=== PATIENT | female | born 1960 | race Caucasian/White ===

== ENCOUNTER 2020-06-23 10:22 | Outpatient (REF) | payer OTHER, SELFPAY ==
[2020-06-23 13:50] LABS: MANUAL DIFF FLAG NO
[2020-06-23 13:55] LABS: Basophils Absolute Auto 0.1 X10*3/uL (0.0-0.2); Basophils Percent Auto 0.8 % (0-2); Eosinophils Absolute Auto 0.1 X10*3/uL (0.0-0.4); Eosinophils Percent Auto 1.3 % (0-4); Hematocrit 39.9 % (37-47); Hemoglobin 13.4 g/dl (12.0-16.0); Imm Gran Abs Auto 0.02 X10*3/uL (0.00-0.03); Imm Gran Pct Auto 0.3 % (0.0-0.4); Lymphocytes Absolute Auto 1.9 X10*3/uL (1.2-4.9); Lymphocytes Percent Auto 31.9 % (20-40); Mean Corpuscular HGB Conc 33.6 g/dl (31.0-35.0); Mean Corpuscular Hemoglobin 30.1 pg (27.0-33.0); Mean Corpuscular Volume 89.7 fL (80-98); Mean Platelet Volume 10.7 fL (9.4-12.3); Monocytes Absolute Auto 0.5 X10*3/uL (0.1-1.2); Monocytes Percent Auto 7.6 % (2-11); Neutrophils Absolute Auto 3.5 X10*3/uL (2.0-8.3); Neutrophils Percent Auto 58.1 % (45-73); Platelet Count 176 X10*3/uL (160-400); Red Blood Count 4.45 X10*6/uL (4.20-5.50)
[2020-06-23 14:29] LABS: Alanine Aminotransferase 32 U/L (0-31); Albumin Level 4.5 g/dL (3.5-5.0); Alkaline Phosphatase 84 U/L (39-117); Anion Gap 10 (12-20); Aspartate Amino Transferase 18 U/L (5-31); Bilirubin Total 0.4 mg/dL (0.0-1.0); Blood Urea Nitrogen 24 mg/dL (9-16); C Reactive Protein 0.41 mg/dL (< or = 0.50); Calcium 9.3 mg/dL (8.4-10.2); Carbon Dioxide 27 mmol/L (22-29); Chloride 111 mmol/L (96-108); Estimated Glomerular Filt Rate > 60; Glucose Random 88 mg/dL (60-115); Potassium 4.7 mmol/l (3.3-5.1); Sodium 143 mmol/L (135-145); Total Protein 6.8 g/dL (6.5-8.0)
[2020-06-23 15:05] LABS: Erythrocyte Sedimentation Rate 16 MM/HR (0-20)
== END 2020-06-23 10:23 | disposition home or self-care (01) ==
LOC: HO.10HDL 10:22
PROVIDERS: Visit Provider Internal Medicine Rheumatology
DX: M06.4 Inflammatory polyarthropathy (principal); D69.6 Thrombocytopenia, unspecified; D72.818 Other decreased white blood cell count
CPT/HCPCS: 36415; 80053; 85025; 85652; 86140

== ENCOUNTER 2020-09-13 09:11 | Outpatient (REF) | payer OTHER, SELFPAY ==
[2020-09-13 10:24] LABS: MANUAL DIFF FLAG NO
[2020-09-13 10:34] LABS: Basophils Percent Auto 0.7 % (0-2); Eosinophils Absolute Auto 0.1 X10*3/uL (0.0-0.4); Eosinophils Percent Auto 1.1 % (0-4); Hematocrit 42.1 % (37-47); Hemoglobin 14.1 g/dl (12.0-16.0); Imm Gran Abs Auto 0.04 X10*3/uL (0.00-0.03); Imm Gran Pct Auto 0.7 % (0.0-0.4); Lymphocytes Absolute Auto 1.6 X10*3/uL (1.2-4.9); Lymphocytes Percent Auto 28.6 % (20-40); Mean Corpuscular HGB Conc 33.5 g/dl (31.0-35.0); Mean Corpuscular Hemoglobin 30.1 pg (27.0-33.0); Mean Platelet Volume 10.9 fL (9.4-12.3); Monocytes Absolute Auto 0.4 X10*3/uL (0.1-1.2); Monocytes Percent Auto 6.4 % (2-11); Neutrophils Absolute Auto 3.5 X10*3/uL (2.0-8.3); Neutrophils Percent Auto 62.5 % (45-73); Platelet Count 201 X10*3/uL (160-400); Red Blood Count 4.68 X10*6/uL (4.20-5.50); White Blood Count 5.6 X10*3/uL (4.8-10.8)
[2020-09-13 11:04] LABS: C Reactive Protein 0.39 mg/dL (< or = 0.50)
[2020-09-13 11:17] LABS: Alanine Aminotransferase 26 U/L (0-31); Albumin Level 4.2 g/dL (3.5-5.0); Alkaline Phosphatase 110 U/L (39-117); Anion Gap 13 (12-20); Aspartate Amino Transferase 18 U/L (5-31); Blood Urea Nitrogen 23 mg/dL (9-16); Calcium 8.9 mg/dL (8.4-10.2); Carbon Dioxide 24 mmol/L (22-29); Chloride 110 mmol/L (96-108); Estimated Glomerular Filt Rate > 60; Glucose Random 107 mg/dL (60-115); Potassium 4.2 mmol/l (3.3-5.1); Sodium 143 mmol/L (135-145); Total Protein 6.9 g/dL (6.5-8.0)
[2020-09-13 11:25] LABS: Bilirubin Total 0.2 mg/dL (0.0-1.0)
[2020-09-13 11:35] LABS: Erythrocyte Sedimentation Rate 14 MM/HR (0-20)
== END 2020-09-13 09:12 | disposition home or self-care (01) ==
LOC: HO.10HDLR 09:11
PROVIDERS: Absent Provider Internal Medicine Rheumatology; PCP Internal Medicine; Visit Provider Internal Medicine Medical Oncology
DX: D72.819 Decreased white blood cell count, unspecified (principal)
CPT/HCPCS: 36415; 80053; 85025; 85652; 86140

== ENCOUNTER 2020-09-20 10:22 | Outpatient (REF) | payer OTHER, SELFPAY ==
[2020-09-20 13:52] LABS: MANUAL DIFF FLAG NO
[2020-09-20 13:56] LABS: Basophils Percent Auto 0.7 % (0-2); Eosinophils Absolute Auto 0.1 X10*3/uL (0.0-0.4); Eosinophils Percent Auto 1.9 % (0-4); Hematocrit 39.7 % (37-47); Imm Gran Abs Auto 0.02 X10*3/uL (0.00-0.03); Imm Gran Pct Auto 0.3 % (0.0-0.4); Lymphocytes Absolute Auto 1.7 X10*3/uL (1.2-4.9); Lymphocytes Percent Auto 29.7 % (20-40); Mean Corpuscular HGB Conc 32.7 g/dl (31.0-35.0); Mean Corpuscular Hemoglobin 29.5 pg (27.0-33.0); Mean Corpuscular Volume 90.2 fL (80-98); Mean Platelet Volume 10.9 fL (9.4-12.3); Monocytes Absolute Auto 0.4 X10*3/uL (0.1-1.2); Monocytes Percent Auto 6.8 % (2-11); Neutrophils Absolute Auto 3.5 X10*3/uL (2.0-8.3); Neutrophils Percent Auto 60.6 % (45-73); Platelet Count 187 X10*3/uL (160-400); Red Cell Distribution Width 11.9 % (11.0-16.0); White Blood Count 5.7 X10*3/uL (4.8-10.8)
[2020-09-20 14:32] LABS: Alanine Aminotransferase 22 U/L (0-31); Albumin Level 4.2 g/dL (3.5-5.0); Alkaline Phosphatase 87 U/L (39-117); Anion Gap 12 (12-20); Aspartate Amino Transferase 16 U/L (5-31); Bilirubin Total 0.2 mg/dL (0.0-1.0); Blood Urea Nitrogen 24 mg/dL (9-16); Calcium 8.8 mg/dL (8.4-10.2); Carbon Dioxide 24 mmol/L (22-29); Chloride 111 mmol/L (96-108); Cholesterol 197 mg/dL; Estimated Glomerular Filt Rate > 60; Glucose Fasting 106 mg/dL (60-99); HDL Cholesterol 44 mg/dL; LDL Cholesterol Calculated 125 mg/dl; Potassium 4.2 mmol/l (3.3-5.1); Sodium 143 mmol/L (135-145); Total Protein 6.6 g/dL (6.5-8.0); Triglycerides 142 mg/dL
[2020-09-20 14:55] LABS: Free T4 (Free Thyroxine) 0.71 ng/dL (0.71-1.85); Thyroid Stimulating Hormone 0.62 uIU/mL (0.32-4.0)
== END 2020-09-20 10:23 | disposition home or self-care (01) ==
LOC: HO.10HDL 10:22
PROVIDERS: Absent Provider Internal Medicine Rheumatology; Visit Provider Internal Medicine
DX: Z00.00 Encounter for general adult medical examination without abnormal findings (principal); R63.4 Abnormal weight loss; K50.90 Crohn's disease, unspecified, without complications
CPT/HCPCS: 36415; 80053; 80061; 84439; 84443; 85025

== ENCOUNTER 2020-11-22 10:30 | Outpatient (REF) | payer OTHER, SELFPAY ==
[2020-11-22 12:03] LABS: MANUAL DIFF FLAG NO
[2020-11-22 12:07] LABS: Basophils Percent Auto 0.4 % (0-2); Eosinophils Absolute Auto 0.1 X10*3/uL (0.0-0.4); Eosinophils Percent Auto 1.5 % (0-4); Hematocrit 40.7 % (37-47); Hemoglobin 13.6 g/dl (12.0-16.0); Imm Gran Abs Auto 0.02 X10*3/uL (0.00-0.03); Imm Gran Pct Auto 0.3 % (0.0-0.4); Lymphocytes Absolute Auto 2.1 X10*3/uL (1.2-4.9); Lymphocytes Percent Auto 30.8 % (20-40); Mean Corpuscular HGB Conc 33.4 g/dl (31.0-35.0); Mean Corpuscular Hemoglobin 29.8 pg (27.0-33.0); Mean Corpuscular Volume 89.3 fL (80-98); Mean Platelet Volume 10.8 fL (9.4-12.3); Monocytes Absolute Auto 0.4 X10*3/uL (0.1-1.2); Neutrophils Absolute Auto 4.1 X10*3/uL (2.0-8.3); Platelet Count 189 X10*3/uL (160-400); Red Blood Count 4.56 X10*6/uL (4.20-5.50); Red Cell Distribution Width 12.5 % (11.0-16.0); White Blood Count 6.7 X10*3/uL (4.8-10.8)
[2020-11-22 12:32] LABS: Alanine Aminotransferase 32 U/L (0-31); Albumin Level 4.5 g/dL (3.5-5.0); Alkaline Phosphatase 98 U/L (39-117); Anion Gap 12 (12-20); Aspartate Amino Transferase 21 U/L (5-31); Bilirubin Total 0.6 mg/dL (0.0-1.0); Blood Urea Nitrogen 25 mg/dL (9-16); C Reactive Protein 0.57 mg/dL (< or = 0.50); Calcium 9.4 mg/dL (8.4-10.2); Carbon Dioxide 26 mmol/L (22-29); Chloride 110 mmol/L (96-108); Estimated Glomerular Filt Rate > 60; Glucose Random 91 mg/dL (60-115); Potassium 4.1 mmol/L (3.3-5.1); Sodium 144 mmol/L (135-145); Total Protein 7.1 g/dL (6.5-8.0)
[2020-11-22 13:18] LABS: Erythrocyte Sedimentation Rate 20 MM/HR (0-20)
== END 2020-11-22 10:31 | disposition home or self-care (01) ==
LOC: HO.10HDLR 10:30
PROVIDERS: Visit Provider Internal Medicine Rheumatology
DX: M06.4 Inflammatory polyarthropathy (principal); I73.00 Raynaud's syndrome without gangrene; K50.00 Crohn's disease of small intestine without complications
CPT/HCPCS: 36415; 80053; 85025; 85652; 86140

== ENCOUNTER 2020-12-20 16:16 | Outpatient (REF) | payer OTHER, SELFPAY ==
--- NOTE | ~2020-12-20 | MM_ITS ---
EXAMINATION: MM SCREENING DIGITAL BREAST TOMOSYNTHESIS, BILATERAL CLINICAL INFORMATION: Screening. Asymptomatic. The lifetime risk of breast cancer based on the Tyrer-Cuzick Model is 8%. COMPARISON: Mammography: 10/14/2019, 10/08/2018, 09/25/2017 TECHNIQUE: Digital breast tomosynthesis is performed in both the craniocaudal and mediolateral oblique views along with computer-aided detection (CAD). Synthesized 2D images are generated from the tomosynthesis. FINDINGS: There are scattered areas of fibroglandular density (ACR BI-RADS breast composition Category b). There are no significant masses, abnormal calcifications, or other abnormalities. Parenchymal pattern is similar to prior exams. No significant changes. MM/MM tomosynthesis screening BI IMPRESSION: No mammographic evidence of malignancy. ASSESSMENT: BI-RADS 1: Negative RECOMMENDATION: Routine annual mammography screening. This patient's information was entered into a reminder system with a target due date for their next mammogram.
== END 2020-12-20 16:17 | disposition home or self-care (01) ==
LOC: HO.MAMMO 16:16
PROVIDERS: PCP Internal Medicine; Visit Provider Internal Medicine
DX: Z12.31 Encounter for screening mammogram for malignant neoplasm of breast (principal)
CPT/HCPCS: 77063; 77067

== ENCOUNTER 2021-01-06 16:05 | Outpatient (REF) | payer OTHER, SELFPAY ==
--- NOTE | ~2021-01-06 | XR_ITS ---
EXAMINATION: XR FOOT, LEFT CLINICAL INFORMATION: Inflammatory pole arthritis. Foot pain. COMPARISON: Previous x-ray September 2007 TECHNIQUE: AP, lateral, and oblique views of the left foot. FINDINGS: Bone alignment is normal. No fracture or dislocation is seen. There is an osteophyte at the navicular bone at the talar navicular joint. Joint spaces are otherwise normal. No erosions are seen. There is a small plantar calcaneal spur. Soft tissues are otherwise normal XR/XR foot LT min 3V IMPRESSION: Small navicular osteophyte at the talar navicular joint and plantar calcaneal spur.
== END 2021-01-06 16:06 | disposition home or self-care (01) ==
LOC: HO.XRAY 16:05
PROVIDERS: PCP Internal Medicine; Visit Provider Internal Medicine Rheumatology
DX: M06.4 Inflammatory polyarthropathy (principal); M79.672 Pain in left foot
CPT/HCPCS: 73630

== ENCOUNTER 2021-02-24 12:56 | Outpatient (REF) | payer OTHER, SELFPAY ==
[2021-02-24 14:42] LABS: MANUAL DIFF FLAG NO
[2021-02-24 14:44] LABS: Basophils Percent Auto 0.5 % (0-2); Eosinophils Absolute Auto 0.1 X10*3/uL (0.0-0.4); Eosinophils Percent Auto 1.1 % (0-4); Hemoglobin 13.3 g/dl (12.0-16.0); Imm Gran Abs Auto 0.02 X10*3/uL (0.00-0.03); Imm Gran Pct Auto 0.3 % (0.0-0.4); Lymphocytes Absolute Auto 1.8 X10*3/uL (1.2-4.9); Mean Corpuscular HGB Conc 34.1 g/dl (31.0-35.0); Mean Corpuscular Hemoglobin 30.4 pg (27.0-33.0); Mean Platelet Volume 10.6 fL (9.4-12.3); Monocytes Absolute Auto 0.4 X10*3/uL (0.1-1.2); Monocytes Percent Auto 6.8 % (2-11); Neutrophils Absolute Auto 4.2 X10*3/uL (2.0-8.3); Neutrophils Percent Auto 64.3 % (45-73); Platelet Count 200 X10*3/uL (160-400); Red Blood Count 4.38 X10*6/uL (4.20-5.50); Red Cell Distribution Width 12.3 % (11.0-16.0); White Blood Count 6.5 X10*3/uL (4.8-10.8)
[2021-02-24 15:08] LABS: Alanine Aminotransferase 43 U/L (0-31); Albumin Level 4.3 g/dL (3.5-5.0); Alkaline Phosphatase 102 U/L (39-117); Anion Gap 11 (12-20); Aspartate Amino Transferase 22 U/L (5-31); Bilirubin Total 0.2 mg/dL (0.0-1.0); Blood Urea Nitrogen 16 mg/dL (9-16); C Reactive Protein 0.62 mg/dL (< or = 0.50); Calcium 9.1 mg/dL (8.4-10.2); Carbon Dioxide 24 mmol/L (22-29); Chloride 112 mmol/L (96-108); Estimated Glomerular Filt Rate > 60; Glucose Random 132 mg/dL (60-115); Potassium 3.9 mmol/L (3.3-5.1); Sodium 143 mmol/L (135-145); Total Protein 6.7 g/dL (6.5-8.0)
[2021-02-24 15:31] LABS: Erythrocyte Sedimentation Rate 16 MM/HR (0-20)
== END 2021-02-24 12:57 | disposition home or self-care (01) ==
LOC: HO.WFDLDS 12:56
PROVIDERS: Visit Provider Internal Medicine Rheumatology
DX: M06.4 Inflammatory polyarthropathy (principal); I73.00 Raynaud's syndrome without gangrene; K50.00 Crohn's disease of small intestine without complications
CPT/HCPCS: 36415; 80053; 85025; 85652; 86140

== ENCOUNTER 2021-03-18 11:29 | Outpatient (REF) | payer OTHER, SELFPAY ==
[2021-03-18 13:56] LABS: MANUAL DIFF FLAG NO
[2021-03-18 14:07] LABS: Basophils Percent Auto 0.6 % (0-2); Eosinophils Absolute Auto 0.1 X10*3/uL (0.0-0.4); Eosinophils Percent Auto 1.6 % (0-4); Hematocrit 38.7 % (37-47); Hemoglobin 12.8 g/dl (12.0-16.0); Imm Gran Abs Auto 0.04 X10*3/uL (0.00-0.03); Imm Gran Pct Auto 0.6 % (0.0-0.4); Lymphocytes Absolute Auto 1.7 X10*3/uL (1.2-4.9); Lymphocytes Percent Auto 26.8 % (20-40); Mean Corpuscular HGB Conc 33.1 g/dl (31.0-35.0); Mean Corpuscular Hemoglobin 29.6 pg (27.0-33.0); Mean Corpuscular Volume 89.4 fL (80-98); Mean Platelet Volume 10.4 fL (9.4-12.3); Monocytes Absolute Auto 0.5 X10*3/uL (0.1-1.2); Monocytes Percent Auto 8.5 % (2-11); Neutrophils Absolute Auto 3.9 X10*3/uL (2.0-8.3); Neutrophils Percent Auto 61.9 % (45-73); Platelet Count 188 X10*3/uL (160-400); Red Blood Count 4.33 X10*6/uL (4.20-5.50); Red Cell Distribution Width 12.6 % (11.0-16.0); White Blood Count 6.3 X10*3/uL (4.8-10.8)
[2021-03-18 14:20] LABS: Alanine Aminotransferase 43 U/L (0-31); Albumin Level 4.2 g/dL (3.5-5.0); Alkaline Phosphatase 107 U/L (39-117); Anion Gap 12 (12-20); Aspartate Amino Transferase 19 U/L (5-31); Bilirubin Total 0.3 mg/dL (0.0-1.0); Blood Urea Nitrogen 17 mg/dL (9-16); Calcium 9.8 mg/dL (8.4-10.2); Carbon Dioxide 24 mmol/L (22-29); Chloride 110 mmol/L (96-108); Estimated Glomerular Filt Rate > 60; Glucose Random 102 mg/dL (60-115); Sodium 142 mmol/L (135-145); Total Protein 6.8 g/dL (6.5-8.0)
== END 2021-03-18 11:30 | disposition home or self-care (01) ==
LOC: HO.WFDLDS 11:29
PROVIDERS: Visit Provider Internal Medicine Medical Oncology
DX: D72.819 Decreased white blood cell count, unspecified (principal)
CPT/HCPCS: 36415; 80053; 85025

== ENCOUNTER 2021-05-27 09:36 | Outpatient (REF) | payer OTHER, SELFPAY ==
[2021-05-27 11:16] LABS: MANUAL DIFF FLAG NO
[2021-05-27 11:34] LABS: Basophils Percent Auto 0.4 % (0-2); Eosinophils Absolute Auto 0.1 X10*3/uL (0.0-0.4); Eosinophils Percent Auto 1.4 % (0-4); Hematocrit 39.4 % (37-47); Hemoglobin 13.4 g/dl (12.0-16.0); Imm Gran Abs Auto 0.02 X10*3/uL (0.00-0.03); Imm Gran Pct Auto 0.4 % (0.0-0.4); Lymphocytes Absolute Auto 1.5 X10*3/uL (1.2-4.9); Lymphocytes Percent Auto 28.7 % (20-40); Mean Corpuscular Hemoglobin 30.5 pg (27.0-33.0); Mean Corpuscular Volume 89.5 fL (80-98); Mean Platelet Volume 10.5 fL (9.4-12.3); Monocytes Absolute Auto 0.4 X10*3/uL (0.1-1.2); Monocytes Percent Auto 7.9 % (2-11); Neutrophils Absolute Auto 3.1 X10*3/uL (2.0-8.3); Neutrophils Percent Auto 61.2 % (45-73); Platelet Count 180 X10*3/uL (160-400); Red Cell Distribution Width 11.9 % (11.0-16.0); White Blood Count 5.1 X10*3/uL (4.8-10.8)
[2021-05-27 11:46] LABS: Alanine Aminotransferase 28 U/L (0-31); Albumin Level 4.3 g/dL (3.5-5.0); Alkaline Phosphatase 95 U/L (39-117); Anion Gap 11 (12-20); Aspartate Amino Transferase 20 U/L (5-31); Bilirubin Total 0.4 mg/dL (0.0-1.0); Blood Urea Nitrogen 16 mg/dL (9-16); C Reactive Protein 0.73 mg/dL (< or = 0.50); Calcium 9.4 mg/dL (8.4-10.2); Carbon Dioxide 26 mmol/L (22-29); Chloride 108 mmol/L (96-108); Estimated Glomerular Filt Rate > 60; Glucose Random 106 mg/dL (60-115); Potassium 4.1 mmol/L (3.3-5.1); Sodium 141 mmol/L (135-145); Total Protein 6.7 g/dL (6.5-8.0)
[2021-05-27 12:26] LABS: Erythrocyte Sedimentation Rate 18 MM/HR (0-20)
== END 2021-05-27 09:37 | disposition home or self-care (01) ==
LOC: HO.WFDLDS 09:36
PROVIDERS: PCP Internal Medicine Rheumatology; Visit Provider Internal Medicine
DX: Z20.822 Contact with and (suspected) exposure to COVID-19 (principal); M06.4 Inflammatory polyarthropathy; I73.00 Raynaud's syndrome without gangrene; K50.00 Crohn's disease of small intestine without complications
CPT/HCPCS: 36415; 80053; 85025; 85652; 86140; C9803; U0003; U0005

== ENCOUNTER 2021-06-29 12:19 | Day surgery (SDC) | payer OTHER, SELFPAY ==
[2021-06-24 08:35] VITALS: BMI 32.1
--- NOTE | 2021-06-28 12:16 | HO.ANESPROP2 ---
Documented by User: Frances Rodrigues NP 06/28/21 12:17 HPI - Anesthesia Eval Consult details Narrative: 61yo F for Upper Endoscopy PMFSH Active Problems Active Problems: All Active Problems (Updated 06/24/21 @ 08:37 by Pati Andino, RN) Hives (Acute) Past Medical History Medical History (Updated 06/24/21 @ 08:37 by Pati Andino, RN) Arthritis Back pain Carpal tunnel syndrome COVID-19 vaccine series completed Crohn's disease Environmental allergies Fibromyalgia GERD (gastroesophageal reflux disease) Herniated cervical disc Hx of migraines Iron deficiency anemia PONV (postoperative nausea and vomiting) Thoracic disc herniation Vitamin D deficiency Surgical History Surgical History (Updated 06/24/21 @ 08:23 by Pati Andino RN) History of esophagogastroduodenoscopy (EGD) History of surgery History of tonsillectomy History of tubal ligation Hx of cholecystectomy Hx of colonoscopy Hx of fusion of cervical spine Hx of shoulder surgery Social History Social History Are you a primary long term care pharmacist to a significant other at home: No Do you presently have visiting nurse or other home services: No Patient Tobacco Use Status: Former Tobacco user Quit Date: 1999 Tobacco use type: Cigarette Use of substances other than those prescribed or required for medical reasons: No Have you been hit, kicked, punched, or otherwise hurt by someone within the past year? If so, by whom?: No Are you DNR?: No Advance Directives: Yes Advance Directives Information Provided: Yes Advance Directives on File: Yes Advance Directives Date on File: 06/23/20 Recently lost weight without trying: No Eating poorly because of decreased appetite: No Nutrition Risks: No Nutritional Risk Patient : No Meds Allergies Allergy/AdvReac Type Severity Reaction Status Date / Time omeprazole [OMEPRAZOLE] Allergy Severe N/V Verified 06/24/21 08:12 tramadol [From Ultram] Allergy Intermediate ITCHING Verified 06/24/21 08:12 Home Medications Medication Instructions Recorded Confirmed Last Taken Type duloxetine 30 mg capsule,delayed 30 mg PO DAILY 10/21/20 06/24/21 Unknown History release mesalamine 0.375 gram 1.5 g PO QAM 10/21/20 06/24/21 Unknown History capsule,extended release 24 hr (Apriso) methocarbamol 750 mg tablet 750 mg PO TID 10/21/20 06/24/21 Unknown History multivit with 1 tab PO DAILY 10/21/20 06/24/21 Unknown History bhxmypwy-dqhh-RV-lutein 8 mg iron-400 mcg-300 mcg tablet (Centrum Silver Women) pantoprazole 40 mg tablet,delayed 40 mg PO BEDTIME 10/21/20 06/24/21 Unknown History release (Protonix) sumatriptan succinate 100 mg 100 mg PO Q2-4H PRN 10/21/20 06/24/21 Unknown History tablet (Imitrex) topiramate 200 mg tablet (Topamax) 200 mg PO BID 10/21/20 06/24/21 Unknown History loratadine 10 mg tablet (Claritin) 10 mg PO DAILY 06/24/21 06/24/21 Unknown History Exam Exam Date and Time: June 28, 2021 1216 Height,Weight and Vital Signs: Height 5 ft 3 in Weight 82.1 kg Pertinent Lab Results Pertinent Lab Results: Laboratory Tests 05/27/21 05/27/21 09:55 09:55 WBC 5.1 Hgb 13.4 Hct 39.4 Plt Count 180 Sodium 141 Potassium 4.1 Chloride 108 Carbon Dioxide 26 BUN 16 Creatinine 0.94 Assessment and Plan Assessment Anesthesia Assessment: Chart Reviewed Documented by User: Amanda Dang MD 06/29/21 12:57 [facility] Past Medical History Medical History (Updated 06/24/21 @ 08:37 by Pati Andino, TREVON) Arthritis Back pain Carpal tunnel syndrome COVID-19 vaccine series completed Crohn's disease Environmental allergies Fibromyalgia GERD (gastroesophageal reflux disease) Herniated cervical disc Hx of migraines Iron deficiency anemia PONV (postoperative nausea and vomiting) Thoracic disc herniation Vitamin D deficiency Family History Family history of problems with anesthesia: No Surgical History Surgical History (Updated 06/24/21 @ 08:23 by Pati Andino, TREVON) History of esophagogastroduodenoscopy (EGD) History of surgery History of tonsillectomy History of tubal ligation Hx of cholecystectomy Hx of colonoscopy Hx of fusion of cervical spine Hx of shoulder surgery History of Problems with Anesthesia: No Social History Social History Are you a primary long term care pharmacist to a significant other at home: No Do you presently have visiting nurse or other home services: No Patient Tobacco Use Status: Former Tobacco user Quit Date: 1999 Tobacco use type: Cigarette Use of substances other than those prescribed or required for medical reasons: No Have you been hit, kicked, punched, or otherwise hurt by someone within the past year? If so, by whom?: No Are you DNR?: No Advance Directives: Yes Advance Directives Information Provided: Yes Advance Directives on File: Yes Advance Directives Date on File: 06/23/20 Recently lost weight without trying: No Eating poorly because of decreased appetite: No Nutrition Risks: No Nutritional Risk Patient : No Meds Allergies Allergy/AdvReac Type Severity Reaction Status Date / Time omeprazole [OMEPRAZOLE] Allergy Severe N/V Verified 06/24/21 08:12 tramadol [From Ultram] Allergy Intermediate ITCHING Verified 06/24/21 08:12 Home Medications Medication Instructions Recorded Confirmed Last Taken Type duloxetine 30 mg capsule,delayed 30 mg PO DAILY 10/21/20 06/24/21 Unknown History release mesalamine 0.375 gram 1.5 g PO QAM 10/21/20 06/24/21 Unknown History capsule,extended release 24 hr (Apriso) methocarbamol 750 mg tablet 750 mg PO TID 10/21/20 06/24/21 Unknown History multivit with 1 tab PO DAILY 10/21/20 06/24/21 Unknown History ipoyerir-merx-PS-lutein 8 mg iron-400 mcg-300 mcg tablet (Centrum Silver Women) pantoprazole 40 mg tablet,delayed 40 mg PO BEDTIME 10/21/20 06/24/21 Unknown History release (Protonix) sumatriptan succinate 100 mg 100 mg PO Q2-4H PRN 10/21/20 06/24/21 Unknown History tablet (Imitrex) topiramate 200 mg tablet (Topamax) 200 mg PO BID 10/21/20 06/24/21 Unknown History loratadine 10 mg tablet (Claritin) 10 mg PO DAILY 06/24/21 06/24/21 Unknown History Exam Airway Mallampati Class: II (Multiple caps) TM Dist: >3cm Neck ROM: Full Assessment and Plan Assessment Anesthesia Assessment: Anesthesia Plan Discussed and Chart Reviewed Final Anesthetic Review Family History of Problems with Anesthesia: No History of Problems with Anesthesia: No NPO: Yes ASA Class: III Final Preanesthetic Review: No Changes in Pt Med Stat, Meds/Allgs Chart Reviewed and Consent Obtained/Reviewed Patient Risk: Intermediate Procedure Risk: Intermediate Anesthetic Plan Anesthetic Plan: MAC: Disposition: Standard PACU
[2021-06-29 12:58] VITALS: BP 122/68; PULSE 71; RESP 16; TEMP 36.8; O2SAT 96
[2021-06-29] MEDS: Lactated Ringers 1,000 ML 100 ML IVCONT (13:29)
--- NOTE | 2021-06-29 13:52 | MHC.SHP ---
Pre-Procedural Eval Section A Date of Service: 06/29/21 Section B Chief Complaint: reflux Details of Present Illness: see H&P Relevant Family History (Specify if Yes): No Relevant Social History: None Present Medications: see Short Stay Collaborative assessment Medical History: No relevant PMH History of Previous Operations: No relevant previous surgery Allergies: Allergies Allergy/AdvReac Type Severity Reaction Status Date / Time omeprazole [OMEPRAZOLE] Allergy Severe N/V Verified 06/24/21 08:12 tramadol [From Ultram] Allergy Intermediate ITCHING Verified 06/24/21 08:12 Review of Systems Sugical H&P ROS: Negative: Constitution, Cardiovascular, Respiratory, Neurological, Psychiatric, Hem-Onc, Allergic/Immunologic, Gastrointestinal, Genitourinary, Musculoskeletal, Integumentary, Endocrine and Eyes/Ears/Nose/Throat Exam Surgical H&P Exam: Normal: HEENT, Normal: Heart, Normal: Lungs, Normal: Extremities, Normal: Abdomen, Normal: Skin and Normal: Neurological Plan Diagnosis/Plan: Unchanged I have reviewed the history and physical and performed a pertinent physical examination on my patient. No changes have occurred unless specified.
--- NOTE | 2021-06-29 14:13 | P.BOP_ITS ---
Brief Operative Note Date of Service: 06/29/21 Pre-op diagnosis: gerd Post-op diagnosis: same Procedure: egd Surgeon: Ramu Peralta Was an Cost Control Supervisor used for this Procedure?: No Estimated blood loss (mL): 5 Pathology: other (bxs antrum duodenum egj) Condition: stable Disposition: PACU
[2021-06-29 14:15] VITALS: BP 103/45; PULSE 78; RESP 16; TEMP 36.7; O2SAT 94
[2021-06-29 14:30] VITALS: BP 110/59; PULSE 65; RESP 16; TEMP 36.7; O2SAT 96
--- NOTE | 2021-06-29 14:37 | OP_ITS ---
SURGEON: Ramu Peralta MD INDICATIONS: Gastroesophageal reflux disease. PREOPERATIVE DIAGNOSIS: POSTOPERATIVE DIAGNOSIS: PROCEDURE PERFORMED: Upper endoscopy with biopsy. ESTIMATED BLOOD LOSS: COMPLICATIONS: ANESTHESIA: ASSISTANTS: SPECIMENS: MEDICATIONS: Monitored anesthesia care. DESCRIPTION OF PROCEDURE: History and physical performed. The risks and benefits of the procedure were explained to the patient. Informed consent was obtained. The patient was placed in the left lateral decubitus position. The Olympus video gastroscope was introduced into the esophagus, stomach, and duodenum. Examination was performed and the scope was removed. She tolerated the procedure well and was taken to recovery area in stable condition. FINDINGS: Esophagus: The esophagus was normal. There was no esophagitis. Biopsies were obtained from the EG junction. Stomach: The stomach showed no evidence of masses, ulcers, or polyps. There was a moderate amount of partially digested food and time release medication granules present in the stomach. The pylorus was normal. There was no stenosis. The scope easily passed through into the duodenum. Biopsies were obtained from the antrum. Duodenum: The bulb and second portion were normal. Random biopsies were obtained from the second portion. IMPRESSION: 1. Gastroesophageal reflux disease. 2. Rule out gastroparesis. RECOMMENDATIONS: 1. Follow up the biopsy results. 2. Further evaluation with gastric emptying scan will be considered, pending biopsy results.. MD KYLIE Painting/CECILIO / [id number] MTDD
== END 2021-06-29 14:56 | disposition home or self-care (01) ==
PROVIDERS: PCP Internal Medicine Rheumatology; Visit Provider Internal Medicine Gastroenterology
PROC: 0DJ08ZZ Inspection of Upper Intestinal Tract, Via Natural or Artificial Opening Endoscopic (ICD-10-PCS; CPT 43235; principal; 2021-06-29 13:50)
DX: K21.9 Gastro-esophageal reflux disease without esophagitis (principal); R10.11 Right upper quadrant pain; R11.0 Nausea; D50.9 Iron deficiency anemia, unspecified; E55.9 Vitamin D deficiency, unspecified; M19.90 Unspecified osteoarthritis, unspecified site; Z79.899 Other long term (current) drug therapy; Z88.8 Allergy status to other drugs, medicaments and biological substances; Z90.49 Acquired absence of other specified parts of digestive tract; Z87.891 Personal history of nicotine dependence
CPT/HCPCS: 43239; 88305; 88342

== ENCOUNTER → 2021-08-29 07:56 | Outpatient (REF) | payer OTHER, SELFPAY ==
--- NOTE | ~2021-08-29 | NM_ITS ---
EXAMINATION: RADIONUCLIDE SOLID FOOD GASTRIC EMPTYING 4-HOUR STUDY CLINICAL INFORMATION: GERD, esophagitis. COMPARISON: No previous gastric emptying study is available for comparison. TECHNIQUE: A standard meal consisting of 4 oz of Egg Beaters brand equivalent tagged with 782 microcuries Tc-99m Sulfur Colloid, 8 oz water and 2 slices of toast with jelly was administered orally to the patient. Images were obtained using a dual head gamma camera in the anterior and posterior projections over of the stomach immediately post ingestion and at hourly intervals up to 4 hours post ingestion. The anterior and posterior counts at each time interval were averaged using the geometric mean and expressed as percentage of the immediate post ingestion counts. FINDINGS: There is good visualization of activity in the stomach immediately post ingestion. As the study progresses, there is visualization of progressively increasing small bowel activity, but at the end of the study there is mild abnormal retention of activity in the stomach at 4 hours. Retention in the stomach at each time interval was: 1 hour 87% (normal 37%-90%) 2 hours 78% (normal 30%-60%) 3 hours 56% 4 hours 25% (normal 0%-10%) NM/NM gastric emptying study IMPRESSION: Abnormal study. There is mild abnormal retention of solid food in the stomach at 4 hours.
== END ==
LOC: HO.NUCMED 07:56
PROVIDERS: PCP Internal Medicine Rheumatology; Visit Provider Internal Medicine Gastroenterology
DX: K21.9 Gastro-esophageal reflux disease without esophagitis (principal)
CPT/HCPCS: 78264; A9541

== ENCOUNTER 2021-09-14 09:24 | Outpatient (REF) | payer OTHER, SELFPAY ==
[2021-09-14 11:22] LABS: Influenza A PCR NEGATIVE (Negative); Influenza B PCR NEGATIVE (Negative); Resp Syncy Virus RNA Qual PCR POSITIVE (Negative); SARS COV2 PCR INHOUSE NEGATIVE (Negative)
== END 2021-09-14 09:25 | disposition home or self-care (01) ==
LOC: HO.LAB 09:24
PROVIDERS: Visit Provider Family Medicine
DX: B34.9 Viral infection, unspecified (principal); Z20.822 Contact with and (suspected) exposure to COVID-19
CPT/HCPCS: 0241U

== ENCOUNTER 2021-11-29 11:20 | Outpatient (REF) | payer OTHER, SELFPAY ==
[2021-11-29 11:40] LABS: MANUAL DIFF FLAG NO
[2021-11-29 12:01] LABS: Basophils Percent Auto 0.5 % (0-2); Eosinophils Absolute Auto 0.1 X10*3/uL (0.0-0.4); Eosinophils Percent Auto 1.1 % (0-4); Hematocrit 39.1 % (37.0-47.0); Hemoglobin 13.1 g/dl (12.0-16.0); Imm Gran Abs Auto 0.03 X10*3/uL (0.00-0.03); Imm Gran Pct Auto 0.5 % (0.0-0.4); Lymphocytes Absolute Auto 1.9 X10*3/uL (1.2-4.9); Lymphocytes Percent Auto 30.5 % (20-40); Mean Corpuscular HGB Conc 33.5 g/dl (31.0-35.0); Mean Corpuscular Hemoglobin 29.8 pg (27.0-33.0); Mean Corpuscular Volume 88.9 fL (80.0-98.0); Mean Platelet Volume 10.2 fL (9.4-12.3); Monocytes Absolute Auto 0.4 X10*3/uL (0.1-1.2); Monocytes Percent Auto 6.1 % (2-11); Neutrophils Absolute Auto 3.9 x10*3/uL (2.0-8.3); Neutrophils Percent Auto 61.3 % (45-73); Platelet Count 196 X10*3/uL (160-400); Red Cell Distribution Width 12.4 % (11.0-16.0); White Blood Count 6.4 X10*3/uL (4.8-10.8)
[2021-11-29 12:36] LABS: Alanine Aminotransferase 46 U/L (0-31); Alkaline Phosphatase 103 U/L (39-117); Anion Gap 12 (12-20); Aspartate Amino Transferase 25 U/L (5-31); Bilirubin Total 0.3 mg/dL (0.0-1.0); Blood Urea Nitrogen 11 mg/dL (9-16); C Reactive Protein 0.51 mg/dL (< or = 0.50); Calcium 9.2 mg/dL (8.4-10.2); Carbon Dioxide 22 mmol/L (22-29); Chloride 111 mmol/L (96-108); Estimated Glomerular Filt Rate > 60; Glucose Random 175 mg/dL (60-115); Sodium 141 mmol/L (135-145); Total Protein 6.5 g/dL (6.5-8.0)
[2021-11-29 12:39] LABS: Erythrocyte Sedimentation Rate 17 MM/HR (0-20)
== END 2021-11-29 11:21 | disposition home or self-care (01) ==
LOC: HO.LAB 11:20
PROVIDERS: PCP Internal Medicine; Visit Provider Internal Medicine Rheumatology
DX: M06.4 Inflammatory polyarthropathy (principal); I73.00 Raynaud's syndrome without gangrene; K50.00 Crohn's disease of small intestine without complications
CPT/HCPCS: 36415; 80053; 85025; 85652; 86140

== ENCOUNTER 2022-01-02 08:15 | Outpatient (REF) | payer OTHER, SELFPAY ==
[2022-01-02 11:59] LABS: Estimated Average Glucose 114 mg/dL; Hemoglobin A1c % 5.6 %
[2022-01-02 12:22] LABS: Anion Gap 10 (12-20); Blood Urea Nitrogen 13 mg/dL (9-16); Calcium 8.7 mg/dL (8.4-10.2); Carbon Dioxide 23 mmol/L (22-29); Chloride 112 mmol/L (96-108); Cholesterol 196 mg/dL; Estimated Glomerular Filt Rate > 60; Glucose Fasting 126 mg/dL (60-99); HDL Cholesterol 39 mg/dL; LDL Cholesterol Calculated 121 mg/dl; Potassium 3.8 mmol/L (3.3-5.1); Sodium 141 mmol/L (135-145); Triglycerides 182 mg/dL
[2022-01-02 12:25] LABS: Free T4 (Free Thyroxine) 0.69 ng/dL (0.71-1.85); Thyroid Stimulating Hormone 0.96 uIU/mL (0.32-4.0)
[2022-01-02 13:16] LABS: Creatinine Urine 132.03 mg/dL; Microalbum/Creatinine Ratio Ur 10.6 ug/mg cr
== END 2022-01-02 08:16 | disposition home or self-care (01) ==
LOC: HO.WFDLDS 08:15
PROVIDERS: Visit Provider Internal Medicine
DX: R73.03 Prediabetes (principal); R63.5 Abnormal weight gain; G43.909 Migraine, unspecified, not intractable, without status migrainosus; K50.00 Crohn's disease of small intestine without complications
CPT/HCPCS: 36415; 80048; 80061; 82043; 83036; 84439; 84443

== ENCOUNTER 2022-01-29 14:41 | Emergency (ER) | payer OTHER, SELFPAY ==
--- NOTE | ~2022-01-29 | CT_ITS ---
EXAMINATION: CT ABDOMEN AND PELVIS WITHOUT CONTRAST CLINICAL INFORMATION: 62-year-old female with lower abdominal pain and history of colitis COMPARISON: 06/08/2017 TECHNIQUE: Multidetector volumetric imaging was performed from the superior aspect of the liver through the pubic symphysis. Sagittal and coronal reformatted images were obtained on the technologist's workstation. This CT examination was performed using dose optimization techniques as appropriate, variously including the following: *Automated exposure control *Adjustment of mA and/or kV according to patient size (this includes techniques or standardized protocols for targeted exams where dose is matched to indication/reason for exam; i.e. extremities or head) *Use of iterative reconstruction technique DLP: 781 mGy-cm FINDINGS: LUNG BASES: The visualized lung bases are unremarkable. LIVER, GALLBLADDER, AND BILIARY TREE: Liver is of low attenuation due to hepatic steatosis with attenuation of 18 HU, without focal lesions or ductal dilatation. The contour is unremarkable. Gallbladder is surgically absent. There is no evidence of choledocholithiasis PANCREAS: Unremarkable. SPLEEN: Unremarkable. ADRENAL GLANDS: Unremarkable. KIDNEYS AND URETERS: The kidneys are normal in size, shape, and attenuation. No hydronephrosis, hydroureter, or calculi seen. No perinephric stranding. BLADDER: Unremarkable. GASTROINTESTINAL TRACT: There is moderate amount of retained feces consistent with constipation normal appendix is identified with contrast. There is no evidence of colitis, diverticulitis, diverticulosis. Loops of small bowel are unremarkable. There is a duodenal diverticulum in the second portion of the duodenal swipe. ABDOMINAL WALL: No significant hernia is appreciated. LYMPH NODES: Few scattered non-pathologically enlarged lymph nodes seen in the mesentery. The largest seen on image 43 series 7 measured 1.2 cm. VASCULAR: Unremarkable. PELVIC VISCERA: Uterus is retroverted and there are no adnexal lesions. OSSEOUS STRUCTURES: There are mild degenerative changes in facets joints of lower lumbar spine. CT/CT abdomen pelvis wo con IMPRESSION: 1. Hepatic steatosis. Status post cholecystectomy. 2. Constipation Fleischner guidelines were followed.
[2022-01-29 15:10] VITALS: BP 125/86; PULSE 100; RESP 18; TEMP 37.1; O2SAT 96; BMI 33.6
[2022-01-29 15:26] LABS: MANUAL DIFF FLAG NO
[2022-01-29 15:34] LABS: Basophils Percent Auto 0.5 % (0-2); Eosinophils Absolute Auto 0.1 X10*3/uL (0.0-0.4); Eosinophils Percent Auto 1.1 % (0-4); Hematocrit 42.3 % (37.0-47.0); Hemoglobin 14.3 g/dl (12.0-16.0); Imm Gran Abs Auto 0.04 X10*3/uL (0.00-0.03); Imm Gran Pct Auto 0.5 % (0.0-0.4); Lymphocytes Absolute Auto 2.1 X10*3/uL (1.2-4.9); Lymphocytes Percent Auto 25.6 % (20-40); Mean Corpuscular HGB Conc 33.8 g/dl (31.0-35.0); Mean Corpuscular Hemoglobin 29.5 pg (27.0-33.0); Mean Corpuscular Volume 87.4 fL (80.0-98.0); Mean Platelet Volume 10.1 fL (9.4-12.3); Monocytes Absolute Auto 0.6 X10*3/uL (0.1-1.2); Neutrophils Absolute Auto 5.4 x10*3/uL (2.0-8.3); Neutrophils Percent Auto 65.3 % (45-73); Platelet Count 206 X10*3/uL (160-400); Red Blood Count 4.84 X10*6/uL (4.20-5.50); Red Cell Distribution Width 12.5 % (11.0-16.0); White Blood Count 8.3 X10*3/uL (4.8-10.8)
[2022-01-29 15:43] LABS: Anion Gap 12 (12-20); Blood Urea Nitrogen 11 mg/dL (9-16); Calcium 9.5 mg/dL (8.4-10.2); Carbon Dioxide 24 mmol/L (22-29); Chloride 108 mmol/L (96-108); Estimated Glomerular Filt Rate > 60; Glucose Random 88 mg/dL (60-115); Sodium 140 mmol/L (135-145)
[2022-01-29 15:45] LABS: IDNOW Serial# 9DB6401D; Influenza A Negative (Negative); Influenza B2 Negative (Negative)
[2022-01-29 15:46] LABS: COVID-19 Test Negative (Negative); IDNOW Serial# 55D5AD1C
--- NOTE | 2022-01-29 16:16 | ED.GENADULT ---
HPI - General Adult General Chief complaint: Abdominal Pain Stated complaint: Abd pain Time Seen by Provider: 01/29/22 16:15 Source: patient Mode of arrival: ambulatory Limitations: no limitations History of Present Illness HPI narrative: Patient is a 62 year old female presenting to the emergency department today with lower abdominal pain, nausea, and subjective fever. Patient states that for the last day she has had bilateral lower abdominal pain, nausea, and she thinks a fever at home. Patient states hat she has a history of ulcerative colitis and crohns for which she is on a biologic medication. Patient denies any dizziness, lightheadedness, vomiting, chills, blurry vision, double vision, loss of vision, chest pain, difficulty breathing, shortness of breath, back pain, night sweats, pain with urination, increased urinary frequency, increased urinary urgency, blood in her urine or stool, syncope or a near syncopal episode, recent trauma or falls, bowel incontinence, bladder incontinence, bowel retention, bladder retention, or any other complaints at this time. Patient states that she hasn't had a full bowel movement in days. .? Onset (ago): day(s) (1) Location: abdomen Radiation: non-radiation Severity: mild Severity scale (1-10): 2 Quality: dull Pain Consistency: constant Relieving factors: none Exacerbating factors: none Associated symptoms: nausea/vomiting Treatments prior to arrival: none Related Data Home Medications Medication Instructions Recorded Confirmed duloxetine 30 mg capsule,delayed 30 mg PO DAILY 10/21/20 06/24/21 release mesalamine 0.375 gram 1.5 g PO QAM 10/21/20 06/24/21 capsule,extended release 24 hr (Apriso) methocarbamol 750 mg tablet 750 mg PO TID 10/21/20 06/24/21 multivit with 1 tab PO DAILY 10/21/20 06/24/21 flticvkq-[id number]-lutein 8 mg iron-400 mcg-300 mcg tablet (Centrum Silver Women) pantoprazole 40 mg tablet,delayed 40 mg PO BEDTIME 10/21/20 06/24/21 release (Protonix) sumatriptan succinate 100 mg 100 mg PO Q2-4H PRN 10/21/20 06/24/21 tablet (Imitrex) topiramate 200 mg tablet (Topamax) 200 mg PO BID 10/21/20 06/24/21 loratadine 10 mg tablet (Claritin) 10 mg PO DAILY 06/24/21 06/24/21 Allergies Allergy/AdvReac Type Severity Reaction Status Date / Time omeprazole [OMEPRAZOLE] Allergy Severe N/V Verified 01/29/22 15:10 tramadol [From Ultram] Allergy Intermediate ITCHING Verified 01/29/22 15:10 Review of Systems Constitutional: Constitutional: Reports no additional constitutional complaints, Denies chills, Reports fever(s) and Denies night sweats Eyes: Eyes: Reports no additional eye complaints, Denies blurry vision, Denies change in vision, Denies diplopia, Denies eye discharge, Denies loss of vision and Denies eye pain ENT: Denies dizziness Cardiovascular: Cardiovascular: Reports no additional cardiovascular complaints, Denies chest pain, Denies lightheadedness, Denies Loss of Consciousness and Denies dyspnea Respiratory: Respiratory: Reports no additional respiratory complaints and Denies dyspnea Gastrointestinal: Gastrointestinal: Reports no additional gastrointestinal complaints, Reports abdominal pain, Denies melena, Denies hematochezia, Denies change in bowel habits, Denies change in stool character and Reports nausea Genitourinary: Genitourinary: Denies hematuria, Denies urinary frequency, Denies dysuria, Denies urinary incontinence, Denies urinary hesitancy and Denies urinary urgency Musculoskeletal: Musculoskeletal: Reports no additional musculoskeletal complaints, Denies numbness and Denies tingling Neurologic: Denies dizziness, Denies loss of vision, Denies numbness and Denies tingling Psychiatric: Psychiatric: Reports no additional psychiatric complaints Endocrine: Endocrine: Reports no additional endocrine complaints Hematologic/Lymphatic: Hematologic/Lymphatic: Reports no additional hematologic/lymphatic complaints Allergic/Immunologic: Allergic/Immunologic: Reports no additional allergic/immunologic complaints [facility] Past Medical History Attestation statement: The following information was validated with the patient. Source: old records reviewed Medical History Arthritis Back pain Carpal tunnel syndrome COVID-19 vaccine series completed Crohn's disease Environmental allergies Fibromyalgia GERD (gastroesophageal reflux disease) Herniated cervical disc Hx of migraines Iron deficiency anemia PONV (postoperative nausea and vomiting) Thoracic disc herniation Vitamin D deficiency Surgical History History of esophagogastroduodenoscopy (EGD) History of surgery History of tonsillectomy History of tubal ligation Hx of cholecystectomy Hx of colonoscopy Hx of fusion of cervical spine Hx of shoulder surgery Social History Social History Are you a primary emergency care attendant to a significant other at home: No Do you presently have visiting nurse or other home services: No Patient Tobacco Use Status: Former Tobacco user Quit Date: 1999 Tobacco use type: Cigarette Advance Directives: Yes Advance Directives on File: Yes Advance Directives Date on File: 06/23/20 Physical Exam ED Vital Signs: Vital Signs - 24 hr 01/29/22 15:10 Temperature 98.8 F Pulse Rate 100 Respiratory Rate 18 Blood Pressure 125/86 Pulse Oximetry 96 BMI result Body Mass Index 33.6 Const General: cooperative, no acute distress, alert and awake Nutritional Appearance: well nourished Orientation/consciousness: patient oriented x3 Limitations: no limitations HENMT Head: Yes normal to inspection and Yes atraumatic Ears: hearing grossly normal bilaterally and external ears normal General nose exam: Normal external nose present, no nasal discharge noted and no epistaxis Face and sinus: Yes normal facial exam, No abrasion and No laceration Mouth: Normal oral and palatal mucosa present, no drooling and no muffled voice Eyes General: appearance normal, both eyes and all related structures Periorbital: periorbital findings normal Eyelids: Yes eyelids normal Conjunctivae: conjunctivae normal Pupils: Equal, round and reactive pupils present EOM: EOMs intact bilaterally Neck Neck: Yes normal visual inspection, Yes full ROM and Yes no lymphadenopathy Chest Chest palpation & inspection: normal inspection of the chest Resp Effort & Inspection: normal respiratory effort and able to speak in complete sentences Auscultation: clear to auscultation bilaterally Cardio Rate: regular rate Rhythm: regular rhythm GI Inspection: Yes normal to inspection Palpation (GI): Soft to palpation, not firm, nontender, no guarding and not rigid Neuro General: patient oriented x3 and moves all extremities Cranial nerves: Yes Equal, round and reactive pupils present Cognition (Neuro): normal cognition Motor exam (neuro): 5/5 motor strength present throughout Sensory Exam: Normal double simultaneous stimulation for sensation Coordination: [id number] test normal Extrem General: Yes normal to inspection, Yes full ROM and Yes capillary refill normal Psych Appearance: grossly normal Mental Status: mental status grossly normal Affect: normal affect Attitude: cooperative Thought process: Normal thought process present Thought content: Normal thought content present Insight: Good insight present (Psych) Medical Decision Making MDM Narrative Medical decision making narrative: Patient is a 62 year old female presenting to the emergency department today with abdominal pain. Patient's physical exam was unremarkable. Patient's blood work was unremarkable. Patient's abdominal CT showed constipation but was otherwise unremarkable. I explained my physical exam findings as well as all test results to the patient. I answered all questions asked by the patient. Patient received IM Morphine and ODT Zofran which she stated helped her symptoms significantly. Patient refused enema in the department. I stressed the importance of the patient taking her medication as prescribed. I stressed the importance of the patient following up with her primary care provider. I stressed the importance of the patient returning to the emergency department immediately if her symptoms were to worsen or if she were to develop any dizziness, shortness of breath, difficulty breathing, chest pain, blurry vision, loss of vision, nausea, vomiting, abdominal pain, fever, chills, back pain, or any other complaints. Patient verbalized agreement and understanding with this treatment plan and discharge. Differential Diagnosis Differential Diagnosis: Constipation, UC/Crohns flare Medical Records Medical records reviewed: Yes I reviewed the patient's medical records. Lab Data Lab results reviewed: Yes I reviewed the patient's lab results. Result diagrams: 01/29/22 15:16 01/29/22 15:17 Labs: Lab Results 01/29/22 01/29/22 01/29/22 Range/Units 15:15 15:15 15:16 WBC 8.3 (4.8-10.8) X10*3/uL RBC 4.84 (4.20-5.50) X10*6/uL Hgb 14.3 (12.0-16.0) g/dl Hct 42.3 (37.0-47.0) % MCV 87.4 (80.0-98.0) fL MCH 29.5 (27.0-33.0) pg MCHC 33.8 (31.0-35.0) g/dl RDW 12.5 (11.0-16.0) % Plt Count 206 (160-400) X10*3/uL MPV 10.1 (9.4-12.3) fL Immature Gran % (Auto) 0.5 H (0.0-0.4) % Neut % (Auto) 65.3 (45-73) % Lymph % (Auto) 25.6 (20-40) % Grundy % (Auto) 7.0 (2-11) % Eos % (Auto) 1.1 (0-4) % Baso % (Auto) 0.5 (0-2) % Lymph # (Auto) 2.1 (1.2-4.9) X10*3/uL Grundy # (Auto) 0.6 (0.1-1.2) X10*3/uL Eos # (Auto) 0.1 (0.0-0.4) X10*3/uL Baso # (Auto) 0.0 (0.0-0.2) X10*3/uL Abs Immat Gran (auto) 0.04 H (0.00-0.03) X10*3/uL Absolute Neuts (auto) 5.4 (2.0-8.3) x10*3/uL Absolute Nucleated RBC 0.000 (0.0-0.012) X10*3/uL Nucleated RBC % (auto) 0.0 (0.0-0.2) /100WBC Sodium (135-145) mmol/L Potassium (3.3-5.1) mmol/L Chloride (96-108) mmol/L Carbon Dioxide (22-29) mmol/L Anion Gap (12-20) BUN (9-16) mg/dL Creatinine (0.5-1.4) mg/dL Estim Creat Clear Calc Estimated GFR Random Glucose (60-115) mg/dL Calcium (8.4-10.2) mg/dL COVID-19 ([facility]) Negative (Negative) COVID-19 Clin Com See Note Influenza Type A ([facility]) Negative (Negative) Influenza Type B ([facility]) Negative (Negative) Influenza A & B Note See Note 01/29/22 Range/Units 15:17 WBC (4.8-10.8) X10*3/uL RBC (4.20-5.50) X10*6/uL Hgb (12.0-16.0) g/dl Hct (37.0-47.0) % MCV (80.0-98.0) fL MCH (27.0-33.0) pg MCHC (31.0-35.0) g/dl RDW (11.0-16.0) % Plt Count (160-400) X10*3/uL MPV (9.4-12.3) fL Immature Gran % (Auto) (0.0-0.4) % Neut % (Auto) (45-73) % Lymph % (Auto) (20-40) % Grundy % (Auto) (2-11) % Eos % (Auto) (0-4) % Baso % (Auto) (0-2) % Lymph # (Auto) (1.2-4.9) X10*3/uL Grundy # (Auto) (0.1-1.2) X10*3/uL Eos # (Auto) (0.0-0.4) X10*3/uL Baso # (Auto) (0.0-0.2) X10*3/uL Abs Immat Gran (auto) (0.00-0.03) X10*3/uL Absolute Neuts (auto) (2.0-8.3) x10*3/uL Absolute Nucleated RBC (0.0-0.012) X10*3/uL Nucleated RBC % (auto) (0.0-0.2) /100WBC Sodium 140 (135-145) mmol/L Potassium 4.0 (3.3-5.1) mmol/L Chloride 108 (96-108) mmol/L Carbon Dioxide 24 (22-29) mmol/L Anion Gap 12 (12-20) BUN 11 (9-16) mg/dL Creatinine 0.83 (0.5-1.4) mg/dL Estim Creat Clear Calc 74.0 Estimated GFR > 60 Random Glucose 88 (60-115) mg/dL Calcium 9.5 D (8.4-10.2) mg/dL COVID-19 ([facility]) (Negative) COVID-19 Clin Com Influenza Type A ([facility]) (Negative) Influenza Type B ([facility]) (Negative) Influenza A & B Note Imaging Data CT scan - abdomen: Attestation: I personally reviewed and interpreted this imaging study as follows: My impression: No acute process. Radiologist's impression: EXAMINATION: CT ABDOMEN AND PELVIS WITHOUT CONTRAST? CLINICAL INFORMATION: 62-year-old female with lower abdominal pain and history of colitis COMPARISON: 06/08/2017? TECHNIQUE: Multidetector volumetric imaging was performed from the superior aspect of the liver through the pubic symphysis. Sagittal and coronal reformatted images were obtained on the technologist's workstation.? This CT examination was performed using dose optimization techniques as appropriate, variously including the following: *Automated exposure control *Adjustment of mA and/or kV according to patient size (this includes techniques or standardized protocols for targeted exams where dose is matched to indication/reason for exam; i.e. extremities or head) *Use of iterative reconstruction technique DLP: 781 mGy-cm FINDINGS: LUNG BASES: The visualized lung bases are unremarkable.? LIVER, GALLBLADDER, AND BILIARY TREE: Liver is of low attenuation due to hepatic steatosis with attenuation of 18 HU, without focal lesions or ductal dilatation. The contour is unremarkable. Gallbladder is surgically absent. There is no evidence of choledocholithiasis? PANCREAS: Unremarkable.? SPLEEN: Unremarkable.? ADRENAL GLANDS: Unremarkable.? KIDNEYS AND URETERS: The kidneys are normal in size, shape, and attenuation. No hydronephrosis, hydroureter, or calculi seen. No perinephric stranding. ? BLADDER: Unremarkable.? GASTROINTESTINAL TRACT: There is moderate amount of retained feces consistent with constipation normal appendix is identified with contrast. There is no evidence of colitis, diverticulitis, diverticulosis. Loops of small bowel are unremarkable. There is a duodenal diverticulum in the second portion of the duodenal swipe. ABDOMINAL WALL: No significant hernia is appreciated.? LYMPH NODES: Few scattered non-pathologically enlarged lymph nodes seen in the mesentery. The largest seen on image 43 series 7 measured 1.2 cm. VASCULAR: Unremarkable. PELVIC VISCERA: Uterus is retroverted and there are no adnexal lesions. ? OSSEOUS STRUCTURES: There are mild degenerative changes in facets joints of lower lumbar spine.? CT/CT abdomen pelvis wo con IMPRESSION: ? 1. Hepatic steatosis. Status post cholecystectomy. 2. Constipation ? Fleischner guidelines were followed. Dictated By: Chirag Servin MD Signed By: Electronically signed by Chirag Servin MD 01/29/22 1283 Discharge Plan Discharge Clinical Impression: Constipation Patient Disposition: Home, Self-Care Instructions: Constipation (DC) Additional Instructions: Follow up with your primary care provider. Return to the emergency department immediately if your symptoms worsen or if you develop any dizziness, shortness of breath, difficulty breathing, chest pain, blurry vision, loss of vision, nausea, vomiting, abdominal pain, fever, chills, back pain, or any other complaints. Prescriptions: No Action loratadine [Claritin] 10 mg Tablet 10 mg PO DAILY 0RF mesalamine [Apriso] 0.375 gram capsule,extended release 24hr 1.5 g PO QAM 0RF topiramate [Topamax] 200 mg tablet 200 mg PO BID 0RF sumatriptan succinate [Imitrex] 100 mg tablet 100 mg PO Q2-4H PRN (Reason: Migraine Headache) 0RF Rx Instructions: do not exceed 2 doses per 24 hrs methocarbamol 750 mg tablet 750 mg PO TID 0RF pantoprazole [Protonix] 40 mg tablet,delayed release (DR/EC) 40 mg PO BEDTIME 0RF duloxetine 30 mg capsule,delayed release(DR/EC) 30 mg PO DAILY 0RF Centrum Silver Women 8 mg iron-400 mcg-300 mcg tablet 1 tab PO DAILY 0RF Referrals: Deandre Younger MD [Primary Care Provider] - Print Language: Irish
[2022-01-29] MEDS: Ondansetron ODT 4 MG TAB.RAPDIS TRANSLINGU (17:56)
[2022-01-29] MEDS: Morphine Sulfate 4 MG/ML CARTRIDGE IM (17:56)
== END 2022-01-29 18:15 | disposition home or self-care (01) ==
PROVIDERS: Emergency Provider Internal Medicine; PCP Internal Medicine
DX: K59.00 Constipation, unspecified (principal); R10.30 Lower abdominal pain, unspecified; Z20.822 Contact with and (suspected) exposure to COVID-19
CPT/HCPCS: 36415; 74176; 80048; 85025; 87502; 87635; 96372; 96374; 96375; 99284; J2270; J2405

== ENCOUNTER 2022-04-17 10:06 | Outpatient (REF) | payer OTHER, SELFPAY ==
[2022-04-17 13:36] LABS: MANUAL DIFF FLAG NO
[2022-04-17 13:37] LABS: Appearance Urine CLEAR; Color Urine YELLOW; Glucose Urine UA NEG (NEG); Leukocyte Esterase Urine NEG (NEG); Nitrite Urine NEG (NEG); PH 6.5 (5.0-8.0); Specific Gravity - Urine <= 1.005 (1.005-1.025); Urine Blood NEG (NEG); Urine Ketones NEG (NEG); Urine Protein NEG (NEG-TRACE)
[2022-04-17 13:49] LABS: Basophils Percent Auto 0.6 % (0-2); Eosinophils Absolute Auto 0.1 X10*3/uL (0.0-0.4); Eosinophils Percent Auto 1.3 % (0-4); Hematocrit 39.3 % (37.0-47.0); Hemoglobin 13.3 g/dl (12.0-16.0); Imm Gran Abs Auto 0.03 X10*3/uL (0.00-0.03); Imm Gran Pct Auto 0.4 % (0.0-0.4); Lymphocytes Absolute Auto 1.8 X10*3/uL (1.2-4.9); Lymphocytes Percent Auto 25.3 % (20-40); Mean Corpuscular HGB Conc 33.8 g/dl (31.0-35.0); Mean Corpuscular Hemoglobin 30.3 pg (27.0-33.0); Mean Corpuscular Volume 89.5 fL (80.0-98.0); Mean Platelet Volume 10.8 fL (9.4-12.3); Monocytes Absolute Auto 0.4 X10*3/uL (0.1-1.2); Monocytes Percent Auto 6.1 % (2-11); Neutrophils Absolute Auto 4.6 x10*3/uL (2.0-8.3); Neutrophils Percent Auto 66.3 % (45-73); Platelet Count 193 X10*3/uL (160-400); Red Blood Count 4.39 X10*6/uL (4.20-5.50); Red Cell Distribution Width 12.7 % (11.0-16.0); White Blood Count 6.9 X10*3/uL (4.8-10.8)
[2022-04-17 13:56] LABS: Estimated Average Glucose 114 mg/dL; Hemoglobin A1c % 5.6 %
[2022-04-17 13:59] LABS: C Reactive Protein 0.61 mg/dL (< or = 0.50)
[2022-04-17 14:06] LABS: Alanine Aminotransferase 42 U/L (0-31); Albumin Level 4.2 g/dL (3.5-5.0); Alkaline Phosphatase 106 U/L (39-117); Anion Gap 14 (12-20); Aspartate Amino Transferase 22 U/L (5-31); Bilirubin Total 0.3 mg/dL (0.0-1.0); Blood Urea Nitrogen 14 mg/dL (9-16); Carbon Dioxide 22 mmol/L (22-29); Chloride 109 mmol/L (96-108); Estimated Glomerular Filt Rate > 60; Glucose Random 139 mg/dL (60-115); Potassium 3.9 mmol/L (3.3-5.1); Sodium 141 mmol/L (135-145); Total Protein 6.8 g/dL (6.5-8.0)
[2022-04-17 14:57] LABS: Erythrocyte Sedimentation Rate 22 MM/HR (0-20)
== END 2022-04-17 10:07 | disposition home or self-care (01) ==
LOC: HO.10HDL 10:06
PROVIDERS: Absent Provider Internal Medicine Medical Oncology; Referring Provider Internal Medicine Rheumatology; Visit Provider Internal Medicine
DX: R30.0 Dysuria (principal); K21.9 Gastro-esophageal reflux disease without esophagitis; R73.01 Impaired fasting glucose; K50.90 Crohn's disease, unspecified, without complications
CPT/HCPCS: 36415; 80053; 81003; 83036; 85025; 85652; 86140; 87086

== ENCOUNTER 2022-05-16 14:00 | Emergency (ER) | payer OTHER, SELFPAY ==
--- NOTE | ~2022-05-16 | CT_ITS ---
EXAMINATION: CT ABDOMEN AND PELVIS WITH CONTRAST CLINICAL INFORMATION: Right lower quadrant pain. History of Crohn's disease. COMPARISON: 01/29/2022 TECHNIQUE: Multidetector volumetric images were obtained from the superior aspect of the liver through the pubic symphysis following administration 85 mL of Omnipaque 350 intravenous contrast. Sagittal and coronal reformatted images were obtained on the technologist's workstation. Oral contrast: No This CT examination was performed using dose optimization techniques as appropriate, variously including the following: *Automated exposure control *Adjustment of mA and/or kV according to patient size (this includes techniques or standardized protocols for targeted exams where dose is matched to indication/reason for exam; i.e. extremities or head) *Use of iterative reconstruction technique DLP: 654 mGy-cm FINDINGS: LUNG BASES: The visualized lung bases are unremarkable. LIVER, GALLBLADDER, AND BILIARY TREE: The liver is normal in size and shape with decreased attenuation. No focal hepatic lesion or biliary ductal dilatation is present. Cholecystectomy. PANCREAS: Unremarkable. SPLEEN: Unremarkable. ADRENAL GLANDS: Unremarkable. KIDNEYS AND URETERS: The kidneys are normal in size, shape, and attenuation. No hydronephrosis, hydroureter, or calculi seen. No perinephric stranding. BLADDER: Decompressed with no gross abnormality. GASTROINTESTINAL TRACT: The stomach is unremarkable. The small bowel is normal caliber. No obstruction. No small bowel wall thickening seen. Normal appendix. There appears to be wall thickening of the rectum, though this may be secondary to decompression. Appearance is fairly similar to prior.. Prominent stool throughout the colon. No additional colonic wall thickening. No significant adjacent inflammation. ABDOMINAL WALL: No significant hernia is appreciated. LYMPH NODES: Normal. VASCULAR: Unremarkable. PELVIC VISCERA: Retroverted uterus. No adnexal mass. OSSEOUS STRUCTURES: Unremarkable. CT/CT abdomen pelvis w IV con IMPRESSION: Prominent stool throughout the colon. Mild rectal wall thickening suggested, though this may be secondary to decompression. No significant adjacent inflammation of the fat. No small bowel abnormality seen. Hepatic steatosis. Fleischner guidelines were followed.
[2022-05-16 15:18] VITALS: BP 152/92; PULSE 87; RESP 18; TEMP 36.4; O2SAT 95; BMI 31.1
[2022-05-16 19:48] LABS: MANUAL DIFF FLAG NO
[2022-05-16 20:02] LABS: Basophils Absolute Auto 0.1 X10*3/uL (0.0-0.2); Basophils Percent Auto 0.6 % (0-2); Eosinophils Percent Auto 0.2 % (0-4); Hemoglobin 15.7 g/dl (12.0-16.0); Imm Gran Abs Auto 0.07 X10*3/uL (0.00-0.03); Imm Gran Pct Auto 0.7 % (0.0-0.4); Lymphocytes Absolute Auto 1.9 X10*3/uL (1.2-4.9); Lymphocytes Percent Auto 19.3 % (20-40); Mean Corpuscular HGB Conc 34.1 g/dl (31.0-35.0); Mean Corpuscular Hemoglobin 29.9 pg (27.0-33.0); Mean Corpuscular Volume 87.6 fL (80.0-98.0); Mean Platelet Volume 9.9 fL (9.4-12.3); Monocytes Absolute Auto 0.4 X10*3/uL (0.1-1.2); Monocytes Percent Auto 3.6 % (2-11); Neutrophils Absolute Auto 7.5 x10*3/uL (2.0-8.3); Neutrophils Percent Auto 75.6 % (45-73); Platelet Count 276 X10*3/uL (160-400); Red Blood Count 5.25 X10*6/uL (4.20-5.50); Red Cell Distribution Width 12.4 % (11.0-16.0); White Blood Count 9.9 X10*3/uL (4.8-10.8)
[2022-05-16 20:05] LABS: Alanine Aminotransferase 92 U/L (0-31); Albumin Level 4.7 g/dL (3.5-5.0); Alkaline Phosphatase 121 U/L (39-117); Anion Gap 17 (12-20); Aspartate Amino Transferase 36 U/L (5-31); Bilirubin Total 0.4 mg/dL (0.0-1.0); Blood Urea Nitrogen 13 mg/dL (9-16); Calcium 9.5 mg/dL (8.4-10.2); Carbon Dioxide 22 mmol/L (22-29); Chloride 108 mmol/L (96-108); Creatinine Clr Calc Pharmacy 66.4; Estimated Glomerular Filt Rate > 60; Glucose Random 123 mg/dL (60-115); Potassium 4.2 mmol/L (3.3-5.1); Sodium 143 mmol/L (135-145)
[2022-05-16 20:31] LABS: Appearance Urine Clear; Color Urine Dark Yellow; Glucose Urine UA Negative (Negative); Leukocyte Esterase Urine Trace (Negative); Nitrite Urine Negative (Negative); Specific Gravity - Urine >= 1.030 (1.005-1.025); Urine Blood Negative (Negative); Urine Ketones 15 mg/dL (Negative); Urine Protein Trace mg/dL (Neg-Trace)
[2022-05-16 20:49] LABS: Bacteria Urine Trace (None Seen); Hyaline Casts Urine 0-2 /LPF (0-2); RBC Urine 0-2 /HPF (0-2); WBC Urine 0-5 /HPF (0-5)
[2022-05-16 21:33] VITALS: BP 158/77; PULSE 65; RESP 18; TEMP 37; O2SAT 97
--- NOTE | 2022-05-16 21:51 | ED.GENADULT ---
HPI - General Adult General Chief complaint: Abdominal Pain Stated complaint: Crohns/Colitis flare Time Seen by Provider: 05/16/22 19:48 Source: patient Limitations: no limitations History of Present Illness HPI narrative: This is a 62-year-old female with a history of Crohn's disease, who is on mesalamine 1.5 g Q morning, and recently has been on prednisone, initially 40 mg daily or recently decreased to 20 mg daily. This just started due to recent flare. The patient had improvement until yesterday when she began to have more severe crampy pain, worse in the right lower abdomen. Patient has had a low-grade fever to around 99. She had dry heaves this morning but no other vomiting. She denies any blood in her stool, though she has produced a little bit of mucus with blood. Denies any dysuria or urinary frequency. Abdominal pain is not worse with cough or movement, is waxing and waning. Related Data Home Medications Medication Instructions Recorded Confirmed duloxetine 30 mg capsule,delayed 30 mg PO DAILY 10/21/20 06/24/21 release mesalamine 0.375 gram 1.5 g PO QAM 10/21/20 06/24/21 capsule,extended release 24 hr (Apriso) methocarbamol 750 mg tablet 750 mg PO TID 10/21/20 06/24/21 multivit with 1 tab PO DAILY 10/21/20 06/24/21 [id number]-[id number]-lutein 8 mg iron-400 mcg-300 mcg tablet (Centrum Silver Women) pantoprazole 40 mg tablet,delayed 40 mg PO BEDTIME 10/21/20 06/24/21 release (Protonix) sumatriptan succinate 100 mg 100 mg PO Q2-4H PRN Migraine 10/21/20 06/24/21 tablet (Imitrex) Headache topiramate 200 mg tablet (Topamax) 200 mg PO BID 10/21/20 06/24/21 loratadine 10 mg tablet (Claritin) 10 mg PO DAILY 06/24/21 06/24/21 Previous Rx's Medication Instructions Recorded dicyclomine 20 mg tablet 20 mg PO TID PRN cramps #20 tabs 05/17/22 Allergies Allergy/AdvReac Type Severity Reaction Status Date / Time omeprazole [OMEPRAZOLE] Allergy Severe N/V Verified 01/29/22 15:10 tramadol [From Ultram] Allergy Intermediate ITCHING Verified 01/29/22 15:10 Review of Systems Review of Systems: Yes all other systems are reviewed and are negative Constitutional: Constitutional: Reports as per HPI and Reports fever(s) (Low-grade) Eyes: Eyes: Reports as per HPI and Reports no additional eye complaints ENT: Reports system reviewed and no additional complaints, except as documented, Reports as per HPI, Denies nasal congestion, Denies nasal discharge and Denies sore throat Cardiovascular: Cardiovascular: Reports as per HPI, Denies chest pain and Denies dyspnea Respiratory: Respiratory: Reports as per HPI, Denies cough and Denies dyspnea Gastrointestinal: Gastrointestinal: Reports as per HPI, Reports abdominal pain, Denies diarrhea and Reports vomiting (Dry heaves) Genitourinary: Genitourinary: Reports as per HPI, Denies hematuria, Denies urinary frequency and Denies dysuria Musculoskeletal: Musculoskeletal: Reports no additional musculoskeletal complaints and Denies numbness Integumentary/Breasts: Skin/Breast: Reports as per HPI and Denies rash Neurologic: Reports as per HPI, Denies focal weakness and Denies numbness Psychiatric: Psychiatric: Reports no additional psychiatric complaints and Reports as per HPI Endocrine: Endocrine: Reports no additional endocrine complaints and Reports as per HPI Hematologic/Lymphatic: Hematologic/Lymphatic: Reports no additional hematologic/lymphatic complaints, Reports as per HPI and Reports other (No peripheral edema) [facility] Past Medical History Medical History Arthritis Back pain Carpal tunnel syndrome COVID-19 vaccine series completed Crohn's disease Environmental allergies Fibromyalgia GERD (gastroesophageal reflux disease) Herniated cervical disc Hx of migraines Iron deficiency anemia PONV (postoperative nausea and vomiting) Thoracic disc herniation Vitamin D deficiency Surgical History History of esophagogastroduodenoscopy (EGD) History of surgery History of tonsillectomy History of tubal ligation Hx of cholecystectomy Hx of colonoscopy Hx of fusion of cervical spine Hx of shoulder surgery Social History Social History Are you a primary healthcare network consultant to a significant other at home: No Do you presently have visiting nurse or other home services: No Patient Tobacco Use Status: Former Tobacco user Quit Date: 1999 Tobacco use type: Cigarette Advance Directives: Yes Advance Directives on File: Yes Advance Directives Date on File: 06/23/20 Physical Exam ED Vital Signs: Vital Signs - 24 hr 05/16/22 15:18 05/16/22 21:33 05/17/22 00:00 Temperature 97.6 F 98.6 F Pulse Rate 87 65 Respiratory Rate 18 18 Blood Pressure 152/92 H 158/77 H 154/90 H Pulse Oximetry 95 97 98 Oxygen Delivery Method Room Air Room Air Room Air BMI result Body Mass Index 31.1 Medical Decision Making MDM Narrative Medical decision making narrative: Patient with Crohn's disease, with a possible recent flare, has been on prednisone. Cramping more severe since yesterday. Patient not ill appearing. Tenderness worst in the right lower quadrant. CT scan did not show any concerning findings. No evidence of focal inflammation, no appendicitis. White blood cell count normal. Patient is afebrile. Urinalysis negative. Discussed with Gastroenterology, who recommended trying dicyclomine, as sometimes patients can have both Crohn's and IBS symptoms. The patient was given dicyclomine and will be prescribed dicyclomine 20 t.i.d. p.r.n.. Lab Data Lab results reviewed: Yes I reviewed the patient's lab results. Result diagrams: 05/16/22 19:43 05/16/22 19:43 Labs: Lab Results 05/16/22 05/16/22 05/16/22 Range/Units 19:43 19:43 20:21 WBC 9.9 (4.8-10.8) X10*3/uL RBC 5.25 (4.20-5.50) X10*6/uL Hgb 15.7 (12.0-16.0) g/dl Hct 46.0 (37.0-47.0) % MCV 87.6 (80.0-98.0) fL MCH 29.9 (27.0-33.0) pg MCHC 34.1 (31.0-35.0) g/dl RDW 12.4 (11.0-16.0) % Plt Count 276 D (160-400) X10*3/uL MPV 9.9 (9.4-12.3) fL Immature Gran % (Auto) 0.7 H (0.0-0.4) % Neut % (Auto) 75.6 H (45-73) % Lymph % (Auto) 19.3 L (20-40) % Jennings % (Auto) 3.6 (2-11) % Eos % (Auto) 0.2 (0-4) % Baso % (Auto) 0.6 (0-2) % Lymph # (Auto) 1.9 (1.2-4.9) X10*3/uL Jennings # (Auto) 0.4 (0.1-1.2) X10*3/uL Eos # (Auto) 0.0 (0.0-0.4) X10*3/uL Baso # (Auto) 0.1 (0.0-0.2) X10*3/uL Abs Immat Gran (auto) 0.07 H (0.00-0.03) X10*3/uL Absolute Neuts (auto) 7.5 (2.0-8.3) x10*3/uL Absolute Nucleated RBC 0.000 (0.0-0.012) X10*3/uL Nucleated RBC % (auto) 0.0 (0.0-0.2) /100WBC Sodium 143 (135-145) mmol/L Potassium 4.2 (3.3-5.1) mmol/L Chloride 108 (96-108) mmol/L Carbon Dioxide 22 (22-29) mmol/L Anion Gap 17 (12-20) BUN 13 (9-16) mg/dL Creatinine 0.89 (0.5-1.4) mg/dL Estim Creat Clear Calc 66.4 Estimated GFR > 60 Random Glucose 123 H (60-115) mg/dL Calcium 9.5 (8.4-10.2) mg/dL Total Bilirubin 0.4 (0.0-1.0) mg/dL AST 36 H D (5-31) U/L ALT 92 H (0-31) U/L Alkaline Phosphatase 121 H (39-117) U/L Total Protein 8.0 (6.5-8.0) g/dL Albumin 4.7 (3.5-5.0) g/dL Urine Color Dark Yellow Urine Appearance Clear Urine pH 6.0 (5.0-9.0) Ur Specific [place] >= 1.030 H (1.005-1.025) Urine Protein Trace (Neg-Trace) mg/dL Urine Glucose (UA) Negative (Negative) mg/dL Urine Ketones 15 (Negative) mg/dL Urine Blood Negative (Negative) Urine Nitrite Negative (Negative) Ur Leukocyte Esterase Trace H (Negative) Urine RBC 0-2 (0-2) /HPF Urine WBC 0-5 (0-5) /HPF Ur Squamous Epith Cells 3-5 (0-2) /HPF Urine Bacteria Trace (None Seen) Hyaline Casts 0-2 (0-2) /LPF Imaging Data CT scan - abdomen: Radiologist's impression: IMPRESSION: Prominent stool throughout the colon. Mild rectal wall thickening suggested, though this may be secondary to decompression. No significant adjacent inflammation of the fat. ? No small bowel abnormality seen. ? Hepatic steatosis.? Discharge Plan Discharge Clinical Impression: Abdominal cramping, Crohn's disease Patient Disposition: Home, Self-Care Instructions: Crohn Disease (ED), Abdominal Pain (ED) Additional Instructions: Follow-up with your primary physician or Dr. Peralta. Continue the prednisone and mesalamine. Used dicyclomine as prescribed. Return for any new or worsened symptoms Prescriptions: New dicyclomine 20 mg tablet 20 mg PO TID PRN (Reason: cramps) Qty: 20 0RF No Action loratadine [Claritin] 10 mg Tablet 10 mg PO DAILY mesalamine [Apriso] 0.375 gram capsule,extended release 24hr 1.5 g PO QAM topiramate [Topamax] 200 mg tablet 200 mg PO BID sumatriptan succinate [Imitrex] 100 mg tablet 100 mg PO Q2-4H PRN (Reason: Migraine Headache) Rx Instructions: do not exceed 2 doses per 24 hrs methocarbamol 750 mg tablet 750 mg PO TID pantoprazole [Protonix] 40 mg tablet,delayed release (DR/EC) 40 mg PO BEDTIME duloxetine 30 mg capsule,delayed release(DR/EC) 30 mg PO DAILY Centrum Silver Women 8 mg iron-400 mcg-300 mcg tablet 1 tab PO DAILY Interventions: ED Discharge Assessment Last Done: 05/17/22 00:40 Discharge Date/Time: 05/17/22 00:46
[2022-05-16] MEDS: ondansetron HCL 4 MG/2 ML VIAL IVPUSH (22:00)
[2022-05-16] MEDS: HYDROmorphone HCl 1 MG/ML SYRINGE IVPUSH (22:01)
[2022-05-16] MEDS: iohexoL 350 MG/ML 100 ML INFUS..BTL IV (22:18)
--- NOTE | 2022-05-16 23:43 | PC.NURSE ---
Call out to Dr Kareem ISAAC at [phone]. Service unable to reach Dr Serna. Dr Seaman with call back to Dr Whipple at [phone].
[2022-05-16] MEDS: methylPREDNISolone Sod Succ 125 MG/2 ML VIAL IVPUSH (23:57)
[2022-05-16] MEDS: Dicyclomine HCl 10 MG CAPSULE 20 MG PO (23:57)
[2022-05-17] VITALS: BP 154/90; O2SAT 98
== END 2022-05-17 00:46 | disposition home or self-care (01) ==
PROVIDERS: Emergency Provider Emergency Medicine; PCP Internal Medicine
DX: K50.90 Crohn's disease, unspecified, without complications (principal); R10.31 Right lower quadrant pain; Z79.899 Other long term (current) drug therapy
CPT/HCPCS: 36415; 74177; 80053; 81001; 85025; 96374; 96375; 99284; J1170; J2405; J2930; Q9967

== ENCOUNTER 2022-05-18 08:34 | Inpatient (IN) | payer OTHER, SELFPAY ==
[2022-05-18] VITALS (9 sets, daily range): BP systolic 112–177; BP diastolic 30–95; PULSE 75–127; RESP 14–24; TEMP 36.6–38.3; O2SAT 91–100; BMI 31.1
--- NOTE | 2022-05-18 | ECG_ITS ---
Test Reason : ABD PAIN Blood Pressure : / mmHG Vent. Rate : 126 BPM Atrial Rate : 126 BPM P-R Int : 138 ms QRS Dur : 078 ms QT Int : 302 ms P-R-T Axes : 045 025 028 degrees QTc Int : 437 ms Sinus tachycardia Cannot rule out Anterior infarct , age undetermined Abnormal ECG When compared with ECG of 01-FEB-2017 13:29, No significant change was found Referred By: Jenna Corey Electronically Signed By:HERMINIA BLACKBURN
--- NOTE | ~2022-05-18 | XR_ITS ---
EXAMINATION: XR CHEST CLINICAL INFORMATION: Hypoxia COMPARISON: Chest x-ray 06/10/2022 TECHNIQUE: Frontal view of the chest was obtained. FINDINGS: Cardiac silhouette is normal in size. Endotracheal tube terminates approximately 3.8 cm above the level the nazia. Enteric tube terminates below the level the diaphragm with the proximal most side port in the region of the GE junction. Right upper extremity PICC line with tip terminating within the proximal to mid SVC. Left-sided jugular catheter with tip terminating within the brachiocephalic vein. Pigtail catheter projects over the left upper abdomen. Surgical jazmine project over the midline abdomen. Hypoinflated lungs. Some patchy airspace disease persists bilaterally although overall there is improved aeration of the lungs. There is likely some fluid within the right fissure. No large pleural effusion present. No pneumothorax. XR/XR chest 1V IMPRESSION: 1. Support apparatus in expected position. 2. Patchy bilateral airspace disease persists although there is improved aeration of the lungs. There is likely some fluid within the right fissure.
--- NOTE | ~2022-05-18 | CT_ITS ---
EXAMINATION: CT ABDOMEN AND PELVIS WITH CONTRAST CLINICAL INFORMATION: Postop abscess. COMPARISON: Previous CT of the abdomen and pelvis most recent 06/13/2022. TECHNIQUE: Multidetector volumetric images were obtained from the superior aspect of the liver through the pubic symphysis following administration 85 mL of Omnipaque 350 intravenous contrast. Sagittal and coronal reformatted images were obtained on the technologist's workstation. Oral contrast: Yes This CT examination was performed using dose optimization techniques as appropriate, variously including the following: *Automated exposure control *Adjustment of mA and/or kV according to patient size (this includes techniques or standardized protocols for targeted exams where dose is matched to indication/reason for exam; i.e. extremities or head) *Use of iterative reconstruction technique DLP: 895 mGy-cm FINDINGS: LUNG BASES: There are moderate bilateral pleural effusions and lower lobe atelectasis/consolidation. LIVER, GALLBLADDER, AND BILIARY TREE: There is mass effect on the left lobe of the liver from the left subdiaphragmatic abscess. There are also 2 small subcapsular fluid collections adjacent to the left inferior lobe of the liver. The liver is otherwise unremarkable. The gallbladder has been removed. There is no biliary duct dilatation. PANCREAS: Unremarkable. SPLEEN: There is mass effect on the spleen from left subdiaphragmatic abscess. The spleen is otherwise unremarkable. ADRENAL GLANDS: Unremarkable. KIDNEYS AND URETERS: The kidneys are normal in size, shape, and attenuation. No hydronephrosis, hydroureter, or calculi seen. No perinephric stranding. BLADDER: Unremarkable. GASTROINTESTINAL TRACT: There is a left lower quadrant colostomy. There is a Callie pouch. Remaining bowel and the Callie pouch and the pelvis appear slightly distended and filled with fluid. There is a left anterior cul-de-sac drainage catheter in the pelvis. No residual fluid is seen in the pelvis. There are fluid-filled distended loops of small and large bowel. There is no evidence of obstruction. There are small fluid collections adjacent to the stomach and left lobe of the liver. There is a left lateral abdominal paracolic gutter small fluid collection and drain. There is a large fluid collection under the left hemidiaphragm causing mass effect on the liver and spleen suggestive of subdiaphragmatic abscess. There are several small subcentimeter fluid collections in the abdomen and pelvis questionable for small abscesses. Largest is in the right lower quadrant measuring 1.5 x 7 cm in AP and transverse dimension. This appears improved from prior exams. There is generalized mild diffuse peritoneal thickening and increased enhancement and peritoneal fat stranding. ABDOMINAL WALL: Postoperative changes to the anterior abdominal wall. Left lower quadrant colostomy. LYMPH NODES: Normal. VASCULAR: Unremarkable. PELVIC VISCERA: Degenerative changes of the spine. OSSEOUS STRUCTURES: Unremarkable. CT/CT abdomen pelvis w IV con IMPRESSION: Large subdiaphragmatic abscess under the left hemidiaphragm. This causes mass effect on the left lobe of the liver and spleen. Diffuse peritoneal thickening and enhancement fat stranding. Both small remaining fluid collections, largest in the right lower quadrant. Small residual fluid collection in left paracolic gutter adjacent to the drainage catheter. Pigtail drainage catheter in the left pelvis with no residual pelvic fluid. Fleischner guidelines were followed.
--- NOTE | ~2022-05-18 | XR_ITS ---
EXAMINATION: XR CHEST CLINICAL INFORMATION: Line placement COMPARISON: Previous chest x-ray most recent 05/30/[address] 06/01/2022 TECHNIQUE: Frontal view of the chest was obtained. FINDINGS: There is an endotracheal tube with tip 4.7 cm above the nazia. There is a nasogastric tube projects over the stomach. There are bilateral jugular lines with tips projecting over the cavoatrial junction. The lung volumes are low. There is bilateral multilobar airspace disease and atelectasis greatest in the right upper lobe and left lower lobe. There is blunting of both costophrenic angles suggestive of small bilateral pleural effusions. There is no pneumothorax. There is a drainage catheter under the left hemidiaphragm. XR/XR chest 1V IMPRESSION: Satisfactory position of support lines and tubes. Low lung volumes and bilateral multilobar atelectasis and airspace disease greatest in the right upper lobe and left lower lobe.
--- NOTE | ~2022-05-18 | CT_ITS ---
PROCEDURE: CT GUIDED DRAINAGE, PERITONEAL ABSCESS CLINICAL INFORMATION: Large loculated fluid collection in the pelvis, right and left abdomen. Patient is status post sigmoid colon rupture and sigmoid colectomy and right lower quadrant colostomy. COMPARISON: CT abdomen 05/30/2022 performed 11:52 AM. TECHNIQUE: Following explaining CT fluoroscopy-guided 2 drainage catheter placements one in the left upper abdomen and transgluteal placement of second catheter in the pelvic abscess procedure, benefits and risk, a telephone consent was obtained from the of the patient. Patient was placed in right lateral decubitus view and preliminary CT imaging was obtained through the abdomen and pelvis. Initially an optimal site was selected along the left gluteal region and marked by performing preliminary CT imaging through lead markers placed on the skin. The site selected was cleaned and draped in usual sterile manner. 1% lidocaine was injected at puncture site. A long Accu stick was advanced transgluteal through the skin into the left pelvic abscess/cul-de-sac. After observing purulent fluid return, the stylet was withdrawn and thin wire was advanced and the needle removed. A 5 Samoan dilator with stiffener was advanced over the thin wire into the abscess. The thin wire and stiffness over was removed. The thin wire was replaced with a slightly more resilient 0.035 J-wire and a 5 Samoan sheath was removed. A 12 Samoan APD catheter with stiffener was advanced over the guidewire and placed in the pelvic abscess. The guidewire and the stiffener was removed and a pigtail was performed by pulling the thread. The catheter was connected to vacuum bottle via a [address] valve. Catheter was anchored to the skin with 3-0 nonabsorbable sutures. Sterile dressing applied postprocedure. Subsequently imaging of the left upper abdomen was obtained and lead markers was placed along the left lateral abdomen and repeat imaging was performed. A lead marker was selected and marked on the skin. The area was cleaned an aseptic manner at the skin marker. 1% lidocaine was injected at marked site. Through a small skin incision a short 5 Samoan Yueh catheter was advanced into the left upper abdomen loculated fluid collection. After observing fluid return, stylet was withdrawn and a J-wire was advanced through the Yueh catheter and Yueh catheter was removed. Over the J-wire a 10 Samoan APD catheter with stiffener was placed over the guidewire into the collection and the guidewire was removed. Thread was pulled and a pigtail formed. The catheter was then connected to vacuum bottle via connecting cannula. Catheter was anchored to the skin with 3-[address] imaging through the pelvis and left upper quadrant to confirm position of the catheter. Patient tolerated procedure extremely well. Patient was monitored by the radiologist, ICU physician. Patient was on the respirator and managed by the ICU physician. This CT examination was performed using dose optimization techniques as appropriate, variously including the following: *Automated exposure control *Adjustment of mA and/or kV according to patient size (this includes techniques or standardized protocols for targeted exams where dose is matched to indication/reason for exam; i.e. extremities or head) *Use of iterative reconstruction technique DLP: 599 mGy-cm FINDINGS: On preliminary CT imaging of the abdomen and pelvis there is a loculated slightly hyperdense collection in the pelvis. Also visualized is less dense fluid collection in the left and right upper quadrants. A left transgluteal placement of 12 Samoan APD catheter in the pelvis. The catheter was connected to suction ball. Subsequent placement of a 10 Samoan APD catheter in left upper quadrant slightly series appearing fluid collection. The catheter was connected to a suction ball. CT/CT drain peritoneum IMPRESSION: Successful placement of left upper quadrant(10F) and pelvic (12F) drainage catheters. There is purulent drainage from the pelvic catheter and slightly more severe loss reactive fluid from the left upper quadrant catheter.
--- NOTE | ~2022-05-18 | XR_ITS ---
EXAMINATION: XR CHEST CLINICAL INFORMATION: Triple-lumen catheter COMPARISON: 06/04/2022 TECHNIQUE: Frontal view of the chest was obtained. FINDINGS: Interval extubation. Right internal jugular central venous catheter terminates in the right atrium. Pulmonary venous congestion, interstitial and alveolar edema appear worse from prior. Small bilateral pleural effusions, larger on the right, also increased from prior. Cardiac silhouette incompletely assessed. No pneumothorax. No acute osseous abnormalities. XR/XR chest 1V IMPRESSION: Interval extubation. Worsening pulmonary edema and pleural effusions.
--- NOTE | ~2022-05-18 | XR_ITS ---
EXAMINATION: XR CHEST CLINICAL INFORMATION: Hypoxia COMPARISON: Chest x-ray June 03, 2022 TECHNIQUE: Frontal view of the chest was obtained. FINDINGS: Endotracheal tube terminates approximately 4.9 cm above the level the nazia. Enteric tube terminates well below the level the diaphragm. Right-sided jugular catheter is stable with its tip terminating at the cavoatrial junction. There has been interval removal of left-sided catheter. Pigtail catheter is stable projecting under the left hemidiaphragm. Surgical clips project over the right abdomen. Persistent hypoinflated lungs. Bilateral airspace disease is again noted, most prominent within the right upper lung and relatively stable in prominence from yesterday. No pneumothorax identified. No significant pleural effusion. XR/XR chest 1V IMPRESSION: -Support apparatus in expected position. -Stable hypoinflated lungs with multifocal airspace disease.
--- NOTE | ~2022-05-18 | XR_ITS ---
EXAMINATION: XR CHEST CLINICAL INFORMATION: TLC insertion. COMPARISON: 07/13/2022 chest radiograph. TECHNIQUE: Frontal view of the chest was obtained. FINDINGS: Support devices: Left internal jugular catheter with tip overlying the right atrium. Right PICC with tip overlying the superior vena cava. Enteric tube with tip below the left hemidiaphragm overlying the proximal gastric lumen. Endotracheal tube with tip approximately 4 cm proximal to nazia. Pigtail catheter overlying the left upper quadrant of the abdomen. Persistent left basilar opacification with interval increase. The left upper lung field and right lung are clear. No pneumothorax. The heart and mediastinal structures are unremarkable. XR/XR chest 1V IMPRESSION: 1. Support devices detailed above. 2. Interval increase in size of small left pleural effusion.
--- NOTE | ~2022-05-18 | CT_ITS ---
EXAMINATION: CT ABDOMEN AND PELVIS WITH CONTRAST CLINICAL INFORMATION: Postop, perforated viscus COMPARISON: CT abdomen pelvis with contrast 05/18/2022 CT abdomen pelvis without contrast 05/23/2022 TECHNIQUE: Multidetector volumetric images were obtained from the superior aspect of the liver through the pubic symphysis following administration 85 mL of Omnipaque 350 intravenous contrast. Sagittal and coronal reformatted images were obtained on the technologist's workstation. Oral contrast: No This CT examination was performed using dose optimization techniques as appropriate, variously including the following: *Automated exposure control *Adjustment of mA and/or kV according to patient size (this includes techniques or standardized protocols for targeted exams where dose is matched to indication/reason for exam; i.e. extremities or head) *Use of iterative reconstruction technique DLP: 1274 mGy-cm FINDINGS: LUNG BASES: New small to moderate-sized bilateral pleural effusions. Worsening of bibasilar atelectasis. PERITONEUM AND GASTROINTESTINAL TRACT: There are new surgical clips in the sigmoid presumably secondary to partial sigmoidectomy. A new colostomy is present in the left lower quadrant. A surgical drain is present in the pelvis. An NG tube is present with its tip in the stomach. Of note, there are multiple new intra-abdominal fluid collections present. The 3 largest are as follows: There is a prerectal collection measuring 9.2 x 7.1 x 7.0 cm (3:88) which contains a few air bubbles is in the region of the colonic anastomotic suture line. A large collection is present in the left upper quadrant with some mass effect on the spleen and the left lobe of the liver which measures 20.1 x 6.3 x 13.2 cm (3:28). There is a right abdominal collection measuring 12 x 8.7 x 21 cm (3:55). A number of other smaller collections are seen in the mesentery and around bowel loops as well as a a few small collections adjacent to the stomach (3:32 and 40) and a small 3.5 cm subcapsular liver collection (3:33). No free intraperitoneal air is seen. No evidence of bowel obstruction at this time. LIVER, GALLBLADDER, AND BILIARY TREE: The liver is normal in size, shape, and attenuation. No focal hepatic lesion or biliary ductal dilatation is present. Status post cholecystectomy PANCREAS: Unremarkable SPLEEN: Unremarkable. ADRENAL GLANDS: Unremarkable. KIDNEYS AND URETERS: The kidneys are normal in size, shape, and attenuation. No hydronephrosis, hydroureter, or calculi seen. No perinephric stranding. BLADDER: Marie catheter present. The bladder is empty. ABDOMINAL WALL: No significant hernia is appreciated. There is new anasarca LYMPH NODES: No retroperitoneal lymphadenopathy. VASCULAR: Unremarkable. PELVIC VISCERA: Unremarkable. OSSEOUS STRUCTURES: Unremarkable. CT/CT abdomen pelvis w IV con IMPRESSION: 1. Postop findings with midline incision, left lower quadrant colostomy and presumed partial sigmoidectomy. 2. Multiple intra-abdominal fluid collections described above. Only the prerectal collection near a colonic suture line contains some small air bubbles. Fleischner guidelines were followed.
--- NOTE | ~2022-05-18 | XR_ITS ---
EXAMINATION: XR CHEST CLINICAL INFORMATION: Hypoxia COMPARISON: Single view chest 4:03 AM today TECHNIQUE: Frontal view of the chest was obtained. FINDINGS: Compared to the study from earlier this morning, there has been minimal interval improvement with slight decrease in opacity at the right lung base. Still present are changes of vascular congestion. Increased patchy density is seen in the right upper lobe which may represent atelectasis. Again noted are bilateral pleural effusions and left basilar atelectasis. Heart size within normal limits. Right IJ catheter with tip in SVC. A drainage catheter is again seen in the left upper quadrant XR/XR chest 1V IMPRESSION: Continued bibasilar atelectasis and pleural effusions, slightly improved on the right. Increased opacity at the right apex secondary to either atelectasis or infiltrate. Mild CHF persists.
--- NOTE | ~2022-05-18 | CT_ITS ---
EXAMINATION: CT ANGIOGRAPHY LEGS WITH RUNOFF CLINICAL INFORMATION: : Left foot COMPARISON: CT abdomen and pelvis 06/13/2022 at 1156 hours TECHNIQUE: Axial images were obtained through the mid lower thorax, abdomen, pelvis, and both lower extremities following the intravenous demonstration of contrast per CTA protocol. Coronal and sagittal reformatted images were generated. MIP reformatted images were also generated. Contrast: 100 mL Omnip[address] examination was performed using dose optimization techniques as appropriate, variously including the following: *Automated exposure control *Adjustment of mA and/or kV according to patient size (this includes techniques or standardized protocols for targeted exams where dose is matched to indication/reason for exam; i.e. extremities or head) *Use of iterative reconstruction technique DLP: 1677 mGy-cm FINDINGS: CTA abdominal aorta: Normal caliber descending thoracic aorta. Normal caliber abdominal aorta. No dissection or stenosis. Celiac, SMA, single bilateral renal arteries, and CONNIE origins are patent. Common iliac and external iliac arteries are patent. Common femoral arteries widely patent. Hypogastric arteries patent. No aneurysm or stenosis. CT lower extremity runoff: Left leg: Widely patent profunda femoral and superficial femoral arteries. Patent popliteal artery and bifurcation. Peroneal artery is patent to the ankle. Posterior tibial arteries patent with opacification of the plantar arch. Anterior tibial artery is patent into the distal third of the lower leg where there is a short segment of nonvisualization, which may be due to technical factors versus stenosis. No associated vascular calcification. There is a opacification of the dorsalis pedis. Right leg: Patent SFA and profunda femoral arteries. Popliteal artery is widely patent. Patent anterior tibial artery followed into the dorsalis pedis. Patent common peroneal artery followed to the ankle. Widely patent posterior tibial artery with runoff into the plantar arch. Other findings: Lung bases: Small to moderate right and small left pleural effusions redemonstrated with passive bibasilar atelectasis left greater than right. Right upper lobe volume loss/atelectasis noted. Streaky linear opacities in the anterior left upper lobe redemonstrated central venous catheter tips found in the right atrium. Central pulmonary arteries enhance normally-limited assessment. Liver: Diffusely hypoattenuating consistent with steatosis. No liver lesion. No biliary ductal dilation. Gallbladder and bile ducts: Status post cholecystectomy. No biliary ductal dilation. Pancreas: No pancreatic lesion, ductal dilation or peripancreatic inflammatory change. Spleen: Normal size. Striated enhancement related to phase of contrast. Adrenal glands: Unremarkable. Kidneys: Symmetric nephrograms. No hydronephrosis or renal lesion. Bladder: Decompressed with Marie catheter in place. GI tract: Enteric tube tip extends into the first portion of the duodenum. Left lower quadrant end colostomy. Callie pouch. No dilated bowel loops or gross bowel wall thickening. Peritoneum: No intra-abdominal free air. Redemonstrated 3.2 cm perihepatic fluid collection along the inferior left liver lobe. Redemonstrated perisplenic fluid with percutaneous pigtail drain in place. Smaller loculated peripherally enhancing pockets deep to the ventral left abdominal wall measuring 3.3 cm and left paracolic gutter with percutaneous drain in place redemonstrated. A small partially peripherally enhancing fluid collection in the left lower quadrant/upper pelvis measuring approximately 5 cm in axial dimension on series 5 image 79 is unchanged. Small volume free fluid and mild mesenteric edema. Percutaneous drain in the left perirectal low pelvis redemonstrated. Small amount of fluid posterior to the uterus redemonstrated. Presacral edema. Right-sided pelvic percutaneous drain. Abdominal wall: Midline incision with skin jazmine.. Mild body wall edema. No hernia. Lymph nodes: No lymphadenopathy. Bones: No acute fracture or suspicious osseous lesion. Mild multilevel degenerative disc disease in the thoracic spine. CT/CT angio abd aorta runoff IMPRESSION: 1. No caliber abdominal aorta. No aneurysm, dissection, or hemodynamically significant stenosis in the abdominal aorta or iliac arteries. 2. Short segment limited contrast opacification of the distal left tibialis anterior just above the ankle, which may be artifactual versus focal stenosis, favor the former. There is subsequent opacification/flow within the dorsalis pedis. 3. Otherwise, patent runoff bilaterally. No hemodynamically significant stenosis or arterial cutoff. 4. Bilateral pleural effusions right slightly larger than left redemonstrated. 5. Small volume ascites and unchanged loculated fluid collections with multiple percutaneous drains.
--- NOTE | ~2022-05-18 | IR_ITS ---
PROCEDURE: IR INSERTION OF PICC CLINICAL INFORMATION: Hospitalized patient needing IV access. COMPARISON: None. TECHNIQUE: Ultrasound of the right upper extremity was performed demonstrating patency of the right basilic vein. A hardcopy PACS image was obtained. All elements of maximal sterile barrier technique followed including use of cap, mask, sterile gown, sterile gloves, a sterile full body drape and hand hygiene. Also followed skin preparation with 2% chlorhexidine for cutaneous antisepsis, and sterile ultrasound preparation with sterile gel and probe cover when applicable. Using sterile technique and ultrasound guidance the right basilic vein was punctured and guidewire advanced to the right atrium. Following fascial dilatation a 5 Indonesian peel-away sheath was placed and through the peel-away sheath over a guidewire a 5 Indonesian dual lumen PICC line trimmed to 35 cm was placed. Tip of the catheter lies at the cavoatrial junction. Both ports aspirate and flush freely. Catheter was flushed with sterile saline. Antimicrobial disc placed at skin exit site. FINDINGS: Placement of a 5 Indonesian dual lumen 35 cm long right basilic vein PICC line with tip at cavoatrial junction. Patient tolerated procedure as described. IR/IR cvc insert peripheral IMPRESSION: Successful PICC line placement. FLUOROSCOPY TIME: 0.5 minutes. DAP: 49 cGy centimeter squared.
--- NOTE | ~2022-05-18 | CT_ITS ---
EXAMINATION: CT CHEST, ABDOMEN AND PELVIS WITHOUT CONTRAST CLINICAL INFORMATION: Pneumonia and f/u post op fluid collections COMPARISON: CT abdomen pelvis 05/30/2022 TECHNIQUE: Multidetector volumetric imaging was performed from the thoracic inlet through the pubic symphysis without IV contrast. Sagittal and coronal reformatted images were obtained on the technologist's workstation. This CT examination was performed using dose optimization techniques as appropriate, variously including the following: *Automated exposure control *Adjustment of mA and/or kV according to patient size (this includes techniques or standardized protocols for targeted exams where dose is matched to indication/reason for exam; i.e. extremities or head) *Use of iterative reconstruction technique DLP: 1376 mGy-cm FINDINGS: CHEST: Lungs and Pleura: Bilateral small to moderate-sized pleural effusions are present with associated lower lobe atelectasis, unchanged from 05/30/2022. Areas of consolidation are present in both upper lobes medially. Mediastinum: ET tube is present 2 cm above the nazia. A left-sided central line overlies the right atrium. No mediastinal or hilar adenopathy is seen on this limited study without IV contrast. Chest Wall/Axilla: Unremarkable ABDOMEN/PELVIS: Peritoneal Space: Since the prior study, 2 drainage catheters have been placed. The more superior catheter was in the arch of perihepatic collection which has dramatically decreased in size. The pelvic collection which had contained air is significantly decreased in size as well. A surgically placed drain remains just above the bladder. The other fluid collections/areas of loculated ascites mentioned in the 05/30/2022 exam persist and are essentially unchanged. The previously described 21 cm long right-sided fluid collection unchanged as is the next largest collection in the area of the lateral conal fascia on the left measuring 9.6 x 5.4 x 11.7 cm (11:48). A tiny amount of high density layering material is seen inferiorly in this latter collection. Liver, Gallbladder, Biliary Tree: The liver is normal in size, shape, and attenuation. No focal hepatic lesion or biliary ductal dilatation is present. Status post cholecystectomy with clips in the gallbladder fossa. Pancreas: Unremarkable Spleen: Unremarkable Adrenal Glands: Unremarkable Kidneys and Ureters: The kidneys are normal in size, shape, and attenuation. No hydronephrosis, hydroureter, or calculi seen. No perinephric stranding. Bladder: Marie catheter is present in the decompressed bladder Gastrointestinal Tract: Again seen are changes of sigmoidectomy with remaining Callie pouch and left lower quadrant colostomy. No bowel obstruction. Abdominal Wall: No significant hernia is appreciated. Anasarca is present. Lymph Nodes: No lymphadenopathy. Vascular: The aorta appears normal.. The IVC appears unremarkable. PELVIC VISCERA: Suboptimally visualized on this study without IV or oral contrast media OSSEUS STRUCTURES: Minimal degenerative changes are noted in the thoracic spine. No bony destructive lesions are seen. CT/CT abdomen pelvis wo IV con IMPRESSION: 1. The 2 collections which had been drained on 05/30/2022 have decreased in size significantly. The other previously described fluid collections are without significant interval change. 2. Unchanged bilateral pleural effusions. Fleischner guidelines were followed.
--- NOTE | ~2022-05-18 | XR_ITS ---
EXAMINATION: XR CHEST CLINICAL INFORMATION: Respiratory failure with low lung volumes COMPARISON: 05/23/2022 TECHNIQUE: Frontal view of the chest was obtained. FINDINGS: Endotracheal tube terminates 5 cm above the nazia. Enteric tube extends into the stomach. Esophageal temperature probe noted. Left chest central venous catheter terminates near the cavoatrial junction. Lung volumes are low. Small left pleural effusion. Persistent retrocardiac opacity. No pneumothorax. The cardiomediastinal silhouette is unchanged. XR/XR chest 1V IMPRESSION: Endotracheal tube terminating 5 cm above the nazia. Lung volumes remain low. Persistent small left effusion with retrocardiac opacity.
--- NOTE | ~2022-05-18 | XR_ITS ---
EXAMINATION: XR CHEST CLINICAL INFORMATION: Hypoxia COMPARISON: Chest x-ray 05/28/2022 TECHNIQUE: Frontal portable view of the chest was obtained. 6:19 PM FINDINGS: Support lines and tubes. 1. Endotracheal tube 3.3 cm both nazia. 2. Left IJ catheter tip over the right atrium. 3. Enteric tube passing below diaphragm into the stomach. Catheter tip below lower margin of film. 4. Pigtail catheter left upper quadrant of abdomen. Lung volume is low causing crowding of bronchovascular markings. Patchy airspace opacity in the right upper lobe seen on prior exam is persistent. No dense consolidation. No large pleural effusion or pneumothorax. Orthopedic plate and screw at lower cervical spine. Surgical clips right upper quadrant of abdomen XR/XR chest 1V IMPRESSION: Low lung volume causing crowding the bronchovascular markings. Patchy right upper lobe airspace opacities similar to chest x-ray 05/28/2022. No dense consolidation.
--- NOTE | ~2022-05-18 | US_ITS ---
EXAMINATION: ULTRASOUND ARTERIAL DUPLEX LOWER EXTREMITY LEFT CLINICAL INFORMATION: Cold left foot. COMPARISON: None TECHNIQUE: Multiple 2-D grayscale and duplex Doppler ultrasound images of the arteries of the left lower extremity were obtained. FINDINGS: Duplex Doppler interrogation of the bilateral lower extremities showed normal tri and biphasic arterial waveforms. Arterial peak systolic velocities are as follows: Left: Common femoral: 109 cm/sec Profunda femoral: 82 cm/sec Superficial femoral proximal: 138 cm/sec Superficial femoral mid: 148 cm/sec. Superficial femoral distal: 132 cm/sec Popliteal: 106 cm/sec. Posterior tibial: 153 cm/sec Peroneal: 80 cm/sec US/US arterial duplex LE LT IMPRESSION: No hemodynamically significant arterial stenosis in the visualized arteries of the left lower extremity.
--- NOTE | ~2022-05-18 | XR_ITS ---
EXAMINATION: XR CHEST CLINICAL INFORMATION: Feeding tube placement. COMPARISON: Multiple priors, most recent chest radiograph dated 07/19/2022. TECHNIQUE: Frontal view of the chest was obtained. FINDINGS: Enterogastric tube with the tip in unchanged position in the region of the gastric antrum. Left lung base/upper abdomen pigtail catheter in unchanged position. Right-sided central venous catheter with its tip in the region of the proximal SVC. Hypoinflation of the lungs with right suprahilar opacities, unchanged. Left basilar atelectasis versus infiltrates, unchanged. No new or increasing consolidation. No pleural effusion or pneumothorax. XR/XR chest 1V IMPRESSION: 1. Enterogastric tube in unchanged position. 2. Additional support lines in unchanged position as above. 3. Hypoinflation of the lungs with right suprahilar and left basilar atelectasis versus infiltrates, unchanged.
--- NOTE | ~2022-05-18 | CT_ITS ---
PROCEDURE: CT GUIDED DRAINAGE, PERITONEAL ABSCESS CLINICAL INFORMATION: Large loculated fluid collection in the pelvis, right and left abdomen. Patient is status post sigmoid colon rupture and sigmoid colectomy and right lower quadrant colostomy. COMPARISON: CT abdomen 05/30/2022 performed 11:52 AM. TECHNIQUE: Following explaining CT fluoroscopy-guided 2 drainage catheter placements one in the left upper abdomen and transgluteal placement of second catheter in the pelvic abscess procedure, benefits and risk, a telephone consent was obtained from the of the patient. Patient was placed in right lateral decubitus view and preliminary CT imaging was obtained through the abdomen and pelvis. Initially an optimal site was selected along the left gluteal region and marked by performing preliminary CT imaging through lead markers placed on the skin. The site selected was cleaned and draped in usual sterile manner. 1% lidocaine was injected at puncture site. A long Accu stick was advanced transgluteal through the skin into the left pelvic abscess/cul-de-sac. After observing purulent fluid return, the stylet was withdrawn and thin wire was advanced and the needle removed. A 5 [place] dilator with stiffener was advanced over the thin wire into the abscess. The thin wire and stiffness over was removed. The thin wire was replaced with a slightly more resilient 0.035 J-wire and a 5 [place] sheath was removed. A 12 [place] APD catheter with stiffener was advanced over the guidewire and placed in the pelvic abscess. The guidewire and the stiffener was removed and a pigtail was performed by pulling the thread. The catheter was connected to vacuum bottle via a [address] valve[address] Catheter was anchored to the skin with 3-0 nonabsorbable sutures. Sterile dressing applied postprocedure. Subsequently imaging of the left upper abdomen was obtained and lead markers was placed along the left lateral abdomen and repeat imaging was performed. A lead marker was selected and marked on the skin. The area was cleaned an aseptic manner at the skin marker. 1% lidocaine was injected at marked site. Through a small skin incision a short 5 [place] Yueh catheter was advanced into the left upper abdomen loculated fluid collection. After observing fluid return, stylet was withdrawn and a J-wire was advanced through the Yueh catheter and Yueh catheter was removed. Over the J-wire a 10 [place] APD catheter with stiffener was placed over the guidewire into the collection and the guidewire was removed. Thread was pulled and a pigtail formed. The catheter was then connected to vacuum bottle via connecting cannula. Catheter was anchored to the skin with 3-[address] imaging through the pelvis and left upper quadrant to confirm position of the catheter. Patient tolerated procedure extremely well. Patient was monitored by the radiologist, ICU physician. Patient was on the respirator and managed by the ICU physician. This CT examination was performed using dose optimization techniques as appropriate, variously including the following: *Automated exposure control *Adjustment of mA and/or kV according to patient size (this includes techniques or standardized protocols for targeted exams where dose is matched to indication/reason for exam; i.e. extremities or head) *Use of iterative reconstruction technique DLP: 599 mGy-cm FINDINGS: On preliminary CT imaging of the abdomen and pelvis there is a loculated slightly hyperdense collection in the pelvis. Also visualized is less dense fluid collection in the left and right upper quadrants. A left transgluteal placement of 12 [place] APD catheter in the pelvis. The catheter was connected to suction ball. Subsequent placement of a 10 [place] APD catheter in left upper quadrant slightly series appearing fluid collection. The catheter was connected to a suction ball. CT/CT drain peritoneum IMPRESSION: Successful placement of left upper quadrant(10F) and pelvic (12F) drainage catheters. There is purulent drainage from the pelvic catheter and slightly more severe loss reactive fluid from the left upper quadrant catheter.
--- NOTE | ~2022-05-18 | US_ITS ---
EXAMINATION: US VENOUS WITH DOPPLER UPPER EXTREMITY, LEFT CLINICAL INFORMATION: DVT seen on 06/27/2022 COMPARISON: 06/27/2022 TECHNIQUE: Ultrasound of the upper extremity is performed using compression sonography and color and pulse Doppler flow with assessment of augmentation of flow. There is also imaging and Doppler assessment of the jugular and subclavian veins. Spectral analysis with color-flow imaging is performed. FINDINGS: Respiratory variation, normal compression, and augmented flow are noted throughout the upper extremity including the axillary, brachial, cubital, and radial and ulnar veins. The previously seen catheter in the left brachial vein has been removed and there is no thrombus present at this time. There is normal flow in the internal jugular and subclavian veins. There is no visible deep or superficial thrombophlebitis. Examination of the contralateral right subclavian vein shows no abnormality aside from the presence of a PICC line. If the patient's symptoms progress, a followup ultrasound in 5 -7 days might be of value to exclude proximal propagation from a nonvisualized distal arm vein. US/US venous duplex UE LT IMPRESSION: No DVT demonstrated in the left upper extremity
--- NOTE | ~2022-05-18 | CT_ITS ---
EXAMINATION: CT ABDOMEN AND PELVIS WITH CONTRAST CLINICAL INFORMATION: Abdominal pain. Status post sigmoid resection, colostomy. COMPARISON: CT abdomen and pelvis noncontrast 06/30/2022 and with IV contrast 06/21/2022. TECHNIQUE: Multidetector volumetric images were obtained from the superior aspect of the liver through the pubic symphysis following administration 85 mL of Omnipaque 350 intravenous contrast. Sagittal and coronal reformatted images were obtained on the technologist's workstation. Oral contrast: No This CT examination was performed using dose optimization techniques as appropriate, variously including the following: *Automated exposure control *Adjustment of mA and/or kV according to patient size (this includes techniques or standardized protocols for targeted exams where dose is matched to indication/reason for exam; i.e. extremities or head) *Use of iterative reconstruction technique DLP: 831 mGy-cm FINDINGS: LUNG BASES: Moderate bibasilar effusions similar to prior exam. LIVER, GALLBLADDER, AND BILIARY TREE: Normal in size, smooth in contour, and homogeneous. Mild hepatic steatosis. Prior cholecystectomy. No intrahepatic ductal dilatation. Visualized distal common duct unremarkable. PANCREAS: Normal in size and homogeneous attenuation. No pancreatic ductal distention or pseudocyst. There is small retroperitoneal effusion right anterior pararenal space. Other fluid around the pancreas is related to the lesser sac. SPLEEN: Unremarkable. ADRENAL GLANDS: Unremarkable. KIDNEYS AND URETERS: The kidneys are normal in size, shape, and attenuation. No hydronephrosis, hydroureter, or calculi seen. No perinephric stranding. BLADDER: Unremarkable. GASTROINTESTINAL TRACT: Status post prior sigmoid resection with left lower quadrant colostomy. There is diffuse prominent colitis in continuity from the cecum through to the colostomy. There is marked bowel wall thickening and wall enhancement. No pneumatosis or free air. No proximal obstruction. Small bowel is normal in caliber. A normal-appearing appendix is questionably demonstrated medial to the cecum. There is interval moderate ascites abdomen and pelvis and fluid in the lesser sac. Drainage catheter anterior left subphrenic region is present. Fluid around the catheter is decreased in size, currently 2.1 cm in thickness compared with prior measurement 3.8 cm. There is new large interloop or mesenteric fluid collection central abdomen measuring approximately 4 cm AP, 10 cm across, and 8.1 cm vertical. No enhancing wall. No internal gas bubbles. There are likely small bowel loops around the surface of the collection normal in caliber and show no wall thickening. Smaller interloop collection possibly communicating slightly superior measures approximately 2.3 x 4.5 x 3.3 cm. ABDOMINAL WALL: Mild to moderate anasarca. Gland fluid inferomedial to colostomy subcutaneous space measuring 1.5 x 4.0 by proximally 5.0 cm. No gas bubbles. LYMPH NODES: No bulky adenopathy. VASCULAR: Unremarkable. PELVIC VISCERA: Prominent vascularity adnexal regions, greater on left, likely pelvic congestion. OSSEOUS STRUCTURES: Unremarkable. Findings discussed with Facundo Hagan and Williams at 12:45 hours on 07/12/2022. CT/CT abdomen pelvis w IV con IMPRESSION: 1. Diffuse prominent colitis from cecum through to the colostomy. No proximal obstruction. No pneumatosis or free air. Moderate ascites increased. 2. New interloop central abdominal fluid collection approximately 4 x 10 x 8 cm with smaller adjacent collection under 5 cm. Probable small bowel around collection rather than focal small bowel dilatation. 3. Drainage catheter left subphrenic region with decreased fluid around the catheter. 4. Mild to moderate anasarca increased. New small subcutaneous fluid inferomedial to colostomy around 1.5 x 4.0 x 5.0 cm. 5. Moderate bibasilar effusions similar to prior exam 06/21/2022. 6. Prior cholecystectomy. No ductal dilatation.
--- NOTE | ~2022-05-18 | XR_ITS ---
EXAMINATION: XR CHEST CLINICAL INFORMATION: CVI COMPARISON: 06/08/2017 TECHNIQUE: Frontal view of the chest was obtained. FINDINGS: Endotracheal tube terminates 3 cm above the nazia. Enteric tube terminates in the stomach. Left subclavian central venous catheter terminates over the right atrium. Lung volumes are low. Small pleural effusions bilaterally. Bibasilar atelectasis. No pneumothorax. The cardiomediastinal silhouette is unremarkable for this technique. Cervical fusion hardware. XR/XR chest 1V IMPRESSION: Endotracheal tube terminates 3 cm above the nazia. Low lung volumes with small bilateral pleural effusions. Bibasilar atelectasis.
--- NOTE | ~2022-05-18 | XR_ITS ---
EXAMINATION: XR CHEST CLINICAL INFORMATION: Feeding tube placement COMPARISON: Previous chest x-ray most recent 06/08/2022 TECHNIQUE: Frontal view of the chest was obtained. FINDINGS: There is a right jugular line with tip projecting over the cavoatrial junction. There is a feeding tube that projects over the stomach. This is in variable position. There is a pigtail drainage catheter under the left hemidiaphragm. Postsurgical changes to the cervical spine. The lung volumes are low. The cardiac and mediastinal contours are stable. There is dense multilobar airspace disease. This appears unchanged. There may be a small right pleural effusion. There is no pneumothorax. XR/XR chest 1V IMPRESSION: Variable position of feeding tube. The tip projects over the stomach. Pigtail drainage catheter under the left hemidiaphragm.
--- NOTE | ~2022-05-18 | XR_ITS ---
EXAMINATION: XR ABDOMEN KUB CLINICAL INDICATION: Abdominal pain COMPARISON: CT scan earlier today TECHNIQUE: AP view of the abdomen. FINDINGS: No evidence of bowel obstruction. Mucosal edema with some thumbprinting seen around the hepatic flexure consistent with pericolonic edema seen on the CT scan earlier today. Persistent contrast in the pelvicalyceal systems, right greater than left along with contrast in the bladder from the contrast-enhanced CT scan performed this morning XR/XR KUB IMPRESSION: No evidence of bowel obstruction. Evidence of pericolonic edema as seen on the CT scan earlier today.
--- NOTE | ~2022-05-18 | XR_ITS ---
Indication: Abdominal distention, hypoxia EXAMINATION: Single view abdomen and single view chest. 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 NG tube overlies the fundus of the body of the stomach. The bowel pattern shows some air in likely large bowel loops centrally. These could be small bowel loops therefore some small bowel dilatation cannot be excluded. Overall there appears to be mild improvement from previous scalp film. There is a linear tube device overlying the pelvis of uncertain etiology. There is a catheter with tip overlying the greater trochanter of the right hip. Chest film is compared to previous dated 05/26/2022. 2.8 cm above the nazia. NG tube overlying the body of the stomach. Catheter entering from the left overlies the junction of the superior vena cava and right atrium. There is another catheter possibly overlying the lower neck on the left. Correlation recommended clinically. Low lung volumes and the lungs. There is developing right mid to upper lung opacity consistent with atelectasis or infiltrate. Vascular congestion needs to be considered on this study. Once again obscuration of left hemidiaphragm may indicate a basilar infiltrate. XR/XR chest 1V IMPRESSION: NG tube overlying the body of the stomach. Mildly improving bowel pattern from previous. As described radiopaque tube overlying the pelvis of uncertain etiology and a catheter tip overlying the right greater trochanter. In the chest tubes and catheters are described above. Developing right upper lung opacity consistent with atelectasis or infiltrate. Lung volumes are low. Continued atelectasis or infiltrate at the left base. Also findings may well be consistent with vascular congestion/CHF. Prominent central vasculature is noted
--- NOTE | ~2022-05-18 | XR_ITS ---
Indication: Abdominal distention, hypoxia EXAMINATION: Single view abdomen and single view chest. 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 NG tube overlies the fundus of the body of the stomach. The bowel pattern shows some air in likely large bowel loops centrally. These could be small bowel loops therefore some small bowel dilatation cannot be excluded. Overall there appears to be mild improvement from previous scalp film. There is a linear tube device overlying the pelvis of uncertain etiology. There is a catheter with tip overlying the greater trochanter of the right hip. Chest film is compared to previous dated 05/26/2022. 2.8 cm above the nazia. NG tube overlying the body of the stomach. Catheter entering from the left overlies the junction of the superior vena cava and right atrium. There is another catheter possibly overlying the lower neck on the left. Correlation recommended clinically. Low lung volumes and the lungs. There is developing right mid to upper lung opacity consistent with atelectasis or infiltrate. Vascular congestion needs to be considered on this study. Once again obscuration of left hemidiaphragm may indicate a basilar infiltrate. XR/XR KUB IMPRESSION: NG tube overlying the body of the stomach. Mildly improving bowel pattern from previous. As described radiopaque tube overlying the pelvis of uncertain etiology and a catheter tip overlying the right greater trochanter. In the chest tubes and catheters are described above. Developing right upper lung opacity consistent with atelectasis or infiltrate. Lung volumes are low. Continued atelectasis or infiltrate at the left base. Also findings may well be consistent with vascular congestion/CHF. Prominent central vasculature is noted
--- NOTE | ~2022-05-18 | XR_ITS ---
EXAMINATION: XR CHEST CLINICAL INFORMATION: Evaluation of tube placement COMPARISON: 07/16/2022 TECHNIQUE: Frontal view of the chest was obtained. FINDINGS: Feeding tube is been advanced. Its tip is now in the antrum or pointing towards the duodenal bulb. There is a left-sided pigtail catheter. There is atelectasis in the lungs right greater than left and this is stable. It appears that the endotracheal tube is been removed. XR/XR chest 1V IMPRESSION: NG tube is been advanced and is in acceptable position.
--- NOTE | ~2022-05-18 | US_ITS ---
EXAMINATION: US VENOUS WITH DOPPLER UPPER EXTREMITY, LEFT CLINICAL INFORMATION: Left upper extremity edema/swelling. Pain. COMPARISON: None TECHNIQUE: Ultrasound of the upper extremity is performed using compression sonography and color and pulse Doppler flow with assessment of augmentation of flow. There is also imaging and Doppler assessment of the jugular and subclavian veins. Spectral analysis with color-flow imaging is performed. FINDINGS: There is thrombus identified in the brachial vein proximally, in the area of the catheter. Respiratory variation, normal compression, and augmented flow are noted throughout the upper extremity including the axillary, cubital, and radial and ulnar veins. There is normal flow in the internal jugular and subclavian veins. There is no visible superficial thrombophlebitis. US/US venous duplex UE LT IMPRESSION: DVT identified in the proximal left brachial vein in the area of the catheter. This critical result was discussed with Natalie Acuña MD by telephone at 06/27/2022 4:14 PM and it was ascertained that the content and urgency of the report was understood at the time of direct communication.
--- NOTE | ~2022-05-18 | CT_ITS ---
EXAMINATION: CT ABDOMEN AND PELVIS WITH CONTRAST CLINICAL INFORMATION: Severe right lower quadrant and suprapubic pain. History of Crohn's disease. Rule out perforation. COMPARISON: Previous CT of the abdomen and pelvis 05/16/2022 TECHNIQUE: Multidetector volumetric images were obtained from the superior aspect of the liver through the pubic symphysis following administration 85 mL of Omnipaque 350 intravenous contrast. Sagittal and coronal reformatted images were obtained on the technologist's workstation. Oral contrast: Yes This CT examination was performed using dose optimization techniques as appropriate, variously including the following: *Automated exposure control *Adjustment of mA and/or kV according to patient size (this includes techniques or standardized protocols for targeted exams where dose is matched to indication/reason for exam; i.e. extremities or head) *Use of iterative reconstruction technique DLP: 761 mGy-cm FINDINGS: LUNG BASES: There is atelectasis at the lung bases. LIVER, GALLBLADDER, AND BILIARY TREE: The liver is low in attenuation suggestive of fatty infiltration. No focal liver lesion. The gallbladder has been removed. No intrahepatic biliary duct dilatation. Extrahepatic bile ducts are slightly prominent, common bile duct measuring 1.3 cm. This is similar to previous exams and may be normal post bolus ectomy. PANCREAS: Duodenal diverticulum adjacent to the head of the pancreas. Pancreas is otherwise unremarkable. SPLEEN: Unremarkable. ADRENAL GLANDS: Unremarkable. KIDNEYS AND URETERS: Small low-attenuation renal lesions probably representing subcentimeter cysts. No imaging follow-up. BLADDER: Unremarkable. GASTROINTESTINAL TRACT: There is stool in the colon suggestive of constipation. There is severe wall thickening of the sigmoid colon and rectum suggestive of colitis and proctitis. There are several foci of air questionable for within the wall of the sigmoid colon. No free air is seen. There is a small amount of ascites seen in the pelvis and stranding of the pericolic fat. This is increased from previous exam. The large bowel is slightly dilated questionable mild or partial obstruction. The appendix is normal. The small bowel is fluid-filled but normal in caliber. No evidence of active enteritis. ABDOMINAL WALL: There is an umbilical hernia containing fat. LYMPH NODES: Normal. VASCULAR: Unremarkable. PELVIC VISCERA: Unremarkable. OSSEOUS STRUCTURES: Unremarkable. CT/CT abdomen pelvis w IV con IMPRESSION: Severe constipation and question of partial obstruction. Worsening severe colitis of the sigmoid colon and proctitis with increased wall thickening, stranding of the surrounding fat and small amount of fluid in the pelvis. There are several small air collections questionable for air in the wall of the sigmoid colon. No evidence of free air. Fleischner guidelines were followed.
--- NOTE | ~2022-05-18 | XR_ITS ---
EXAMINATION: XR CHEST CLINICAL INFORMATION: Dyspnea COMPARISON: July 20, 2022 TECHNIQUE: AP portable view of the chest was obtained. FINDINGS: There are small lung volumes. Right upper and lower lung disease is again seen without significant change. The left retrocardiac disease does not show appreciable change. No pneumothorax or significant pleural effusion is appreciated. Heart normal size. No evidence of pulmonary edema. Right upper extremity PICC line is seen with tip at the junctions of the subclavian vein and mid superior vena cava. Drainage catheter is seen within the left upper quadrant of the abdomen. Enteric catheter has been removed since previous study. XR/XR chest 1V IMPRESSION: No significant change compared to study of July 20, 2022
--- NOTE | ~2022-05-18 | XR_ITS ---
EXAMINATION: XR CHEST CLINICAL INFORMATION: Central line position COMPARISON: 07/14/2022 TECHNIQUE: Frontal view of the chest was obtained. FINDINGS: Endotracheal tube tip lies approximately 2.5 cm above the nazia. Enteric tube courses into the stomach. Right PICC tip lies in the region of the upper SVC. Left IJ central line tip appears to lie in the region of the deep right atrium versus proximal right ventricle. Pigtail catheter overlies the left base. Lungs are hypoinflated. There is worsening opacity at the right lung base compared to prior. Similar appearance of left basilar opacity and bilateral perihilar opacities. No evidence of pneumothorax. Small pleural effusions noted. Cardiac mediastinal silhouette appears grossly stable. No acute osseous findings are seen. XR/XR chest 1V IMPRESSION: 1. Left IJ central line tip appears to lie in the region of the deep right atrium versus proximal right ventricle. Retraction recommended by approximately 8 cm. 2. Worsening right basilar opacity compared to prior. Similar appearance of left basilar opacity and bilateral perihilar opacities. Small pleural effusions.
--- NOTE | ~2022-05-18 | CT_ITS ---
PROCEDURE: CT GUIDED DRAINAGE, PERITONEAL ABSCESS CLINICAL INFORMATION: Status post ruptured colon with multiple intra-abdominal fluid collections and previous placement of one surgical drain and 2 percutaneous drains. COMPARISON: 08/01/2022 and 07/30/2022. TECHNIQUE: CT fluoroscopic-guided abscess drainage catheter placements x 2. This CT examination was performed using dose optimization techniques as appropriate, variously including the following: *Automated exposure control *Adjustment of mA and/or kV according to patient size (this includes techniques or standardized protocols for targeted exams where dose is matched to indication/reason for exam; i.e. extremities or head) *Use of iterative reconstruction technique DLP: 871 mGy-cm FINDINGS: Informed consent was obtained from the patient's son prior to the procedure. During this process, the procedure and potential alternatives were explained, along with the intended outcome and benefits. The risks of the procedure, as well as the risk of not doing the procedure, were discussed. The patient's son was given the opportunity to ask questions regarding the procedure and appeared competent to make medical decisions. A signed consent form which documents this discussion was placed in the medical record. Using sterile technique and CT fluoroscopic guidance a 5 [place] Yueh catheter was placed into right lateral fluid collection with drainage of approximately 1 L of clear yellow fluid. Over guidewire a 10.2 [place] drainage catheter was placed after fascial dilatation. Catheter was sutured in place and Statlock applied. The left-sided paracolic gutter collection was then targeted. A 5 [place] Yueh catheter was directed from a lateral approach into the collection with return of purulent-appearing fluid. Guidewire was coiled within the collection, and following fascial dilatation a 12 [place] drainage catheter was placed with removal of approximately 200 mL of fluid. The catheter was sutured in place and Statlock device placed. Both drainage catheters were placed to Kishore-Sabillon suction drains. Samples from each drainage were sent for laboratory studies. CT/CT drain peritoneum IMPRESSION: Placement of 10.2 [place] drainage catheter into right-sided fluid collection with the appearance of ascites, without cloudy debris and 1 L was drained. Placement of a 12 [place] abscess catheter was made into the left paracolic gutter collection with removal of purulent-appearing fluid and debris. 200 mL were drained.
--- NOTE | ~2022-05-18 | CT_ITS ---
EXAMINATION: CT ABDOMEN AND PELVIS WITHOUT CONTRAST CLINICAL INFORMATION: Fever, intra-abdominal abscess. COMPARISON: CT drain 06/22/2022 TECHNIQUE: Multidetector volumetric imaging was performed from the superior aspect of the liver through the pubic symphysis. Sagittal and coronal reformatted images were obtained on the technologist's workstation. This CT examination was performed using dose optimization techniques as appropriate, variously including the following: *Automated exposure control *Adjustment of mA and/or kV according to patient size (this includes techniques or standardized protocols for targeted exams where dose is matched to indication/reason for exam; i.e. extremities or head) *Use of iterative reconstruction technique DLP: 12 cysts 79 mGy-cm FINDINGS: There is diffuse mural thickening involving the entire colon likely secondary to inflammatory or infectious colitis. There is a left mid quadrant unremarkable appearing colostomy. The small bowel loops are normal caliber. There is a left flank drain with completely drained abscess. The small bowel loops are nondistended. There is diffuse haziness seen throughout the peritoneum likely secondary to postsurgical changes or inflammation. The gallbladder has been removed. Liver, spleen and pancreas are unremarkable. Adrenal glands are unremarkable. The kidneys are normal size, shape shape and position. No radiopaque calculi seen. There is little hyperdensity seen in the kidney pelvis likely from excreted urinary contrast. There are bilateral small pleural effusion with left lower lobe compressive atelectasis. Minimal atelectatic changes seen in the right middle lobe. Bone windows reveal no lytic or sclerotic process seen Incidental finding of gas within the left upper arm. Question cellulitis or iatrogenic. CT/CT abdomen pelvis wo IV con IMPRESSION: Diffuse mural thickening involving the entire colon consistent with inflammatory infectious colitis. There is a left mid quadrant percutaneous drain where the abscess has been completely drained. There are bilateral small pleural effusions with underlying atelectasis. There is a gas and edema seen in the left upper arm question cellulitis or iatrogenic. Fleischner guidelines were followed.
--- NOTE | ~2022-05-18 | CT_ITS ---
EXAMINATION: CT ABDOMEN AND PELVIS WITH CONTRAST CLINICAL INFORMATION: Status post perforated viscus. COMPARISON: CT abdomen and pelvis without contrast 06/01/2022 TECHNIQUE: Multidetector volumetric images were obtained from the superior aspect of the liver through the pubic symphysis following administration 100 mL of Omnipaque 350 intravenous contrast. Sagittal and coronal reformatted images were obtained on the technologist's workstation. Oral contrast: No This CT examination was performed using dose optimization techniques as appropriate, variously including the following: *Automated exposure control *Adjustment of mA and/or kV according to patient size (this includes techniques or standardized protocols for targeted exams where dose is matched to indication/reason for exam; i.e. extremities or head) *Use of iterative reconstruction technique DLP: 799 mGy-cm FINDINGS: LUNG BASES: Small to moderate size right and small left pleural effusions. Passive basilar atelectasis left greater than right. Volume loss suspected atelectasis and/or fibrosis in the right upper lobe. Streaky linear left upper lobe opacities, presumably atelectasis or scarring. Central venous catheter tip terminates in the right atrium. No pericardial effusion. LIVER, GALLBLADDER, AND BILIARY TREE: Mild hepatic hypoattenuation/steatosis. No liver lesion. No biliary ductal dilation. Status post cholecystectomy. Surgical clips in the gallbladder fossa. PANCREAS: Unremarkable. SPLEEN: Unremarkable. ADRENAL GLANDS: Unremarkable. KIDNEYS AND URETERS: The kidneys are normal in size, shape, and attenuation. No hydronephrosis, hydroureter, or calculi seen. No perinephric stranding. BLADDER: Decompressed with Marie catheter in place. GASTROINTESTINAL TRACT: NG tube terminates in the lower/first portion of the duodenum. Status post Callie pouch and left lower quadrant and colostomy. No dilated bowel loops or appreciable bowel wall thickening. No intra-abdominal free air. There are several peripherally enhancing loculated fluid collections in the abdomen as below. 3.4 x 2.8 cm perihepatic collection along the inferior left liver lobe on series 3-35. 3.2 x 2.1 cm collection deep to the ventral left abdominal wall/left upper quadrant on series 3 image 37. Large amount of partially peripherally enhancing perisplenic fluid with percutaneous drain in place. 2.5 x 2.5 cm left abdominal fluid collection amongst nondilated bowel loops on series 3 image 44. Thin 4.7 x 1.2 cm peripherally enhancing fluid collection along the left paracolic gutter with percutaneous drain in place on series 3 image 51. 4.6 x 1.9 cm fluid collection abutting nondilated small bowel loops in the left lower quadrant on series 3 image 69. 6.2 x 2 cm partially peripherally enhancing fluid collection in the anterior left upper pelvis on series 3 image 78. This appears contiguous with the left paracolic gutter collection and appears to extend posterior to the uterus Partially peripherally enhancing incompletely loculated right lower quadrant mesenteric collection on series 3 image 61 through 71 and back coronal image 41. Additional small volume incompletely loculated free fluid. Suspected small amount of fluid posterior to the uterus/cervix with adjacent left perirectal percutaneous drain. This particular drain does not appear to be located centimeter within the fluid pocket. Additional anterior right pelvic surgical drain. ABDOMINAL WALL: Status post midline incision with skin jazmine. There is a small amount of nonloculated fluid along the lower aspect of the incision on series 3 image 86. Diffuse body wall edema. Mild presacral edema. No hernia. LYMPH NODES: No lymphadenopathy. VASCULAR: Normal caliber abdominal aorta. PELVIC VISCERA: Grossly unremarkable-limited assessment. OSSEOUS STRUCTURES: No acute fracture or suspicious osseous lesion. Mild multilevel degenerative disc disease in the imaged thoracic spine. Lower lumbar facet arthrosis. CT/CT abdomen pelvis w IV con IMPRESSION: 1. Status post partial colectomy with Callie pouch and left lower quadrant and ostomy. No intra-abdominal free air, dilated bowel loops or bowel wall thickening. 2. Multiple loculated and/or incompletely loculated peripherally enhancing fluid collections in the abdomen and pelvis suspicious for infected collections/abscesses, detailed above. 3. Small to moderate size right and small left pleural effusions with bilateral atelectasis. 4. Mild hepatic steatosis.
--- NOTE | ~2022-05-18 | XR_ITS ---
EXAMINATION: XR CHEST CLINICAL INFORMATION: Perry feed tube placement. COMPARISON: None TECHNIQUE: Limited frontal view of the chest was obtained. FINDINGS: Enteric tube is seen with tip overlying the antropyloric region with coronal and towards the proximal gastric lumen. Left-sided pigtail catheter and right upper quadrant surgical clips without significant change. Nonobstructive bowel gas pattern. XR/XR chest 1V IMPRESSION: No significant advancement of the tip of the enteric tube overlying the antropyloric region. New swelling is seen proximally towards the proximal gastric lumen.
--- NOTE | ~2022-05-18 | CT_ITS ---
PROCEDURE: CT-GUIDED DRAINAGE, PERITONEAL ABSCESS CLINICAL INFORMATION: Left upper quadrant abscess. COMPARISON: Previous CT of the abdomen and pelvis from yesterday. TECHNIQUE: Procedure and risks and benefits including bleeding, infection, injury to the adjacent bowel organs was discussed with the patient and her and informed consent was obtained. Limited axial images through the upper abdomen were performed. The left upper upper abdomen and draped in the usual sterile fashion. The skin and soft tissues of the upper abdomen were anesthetized with 1% lidocaine plain. Using CT guidance and a 5-[place] Yueh needle, access to the left subdiaphragmatic fluid collection was obtained over an 018 wire and following serial dilatation, a 12-[place] pigtail drain was placed. 500 mL obtained. Purulent-appearing fluid was aspirated. Specimen was sent for culture. Patient received Versed 1 mg and Fentanyl 50 mcg intravenously during the procedure. Conscious sedation was provided by a registered nurse under my direct supervision. Total sedation time was [address] examination was performed using dose optimization techniques as appropriate, variously including the following: *Automated exposure control. *Adjustment of mA and/or kV according to patient size (this includes techniques or standardized protocols for targeted exams where dose is matched to indication/reason for exam; i.e. extremities or head). *Use of iterative reconstruction technique. DLP: 254 mGy-cm FINDINGS: There is a large fluid collection under the left hemidiaphragm abutting the left lobe of the liver and spleen. Subsequent images demonstrate satisfactory position of a drainage catheter in the collection and interval decrease in size in the size of the collection. CT/CT drain peritoneum IMPRESSION: CT-guided left upper quadrant abscess drainage.
--- NOTE | ~2022-05-18 | CT_ITS ---
EXAMINATION: CT ABDOMEN AND PELVIS WITHOUT CONTRAST CLINICAL INFORMATION: Abdominal pain post colonoscopy. Colitis. Question contained perforation. COMPARISON: Previous CT of the abdomen and pelvis most recent 05/18/2020 TECHNIQUE: Multidetector volumetric imaging was performed from the superior aspect of the liver through the pubic symphysis. Sagittal and coronal reformatted images were obtained on the technologist's workstation. This CT examination was performed using dose optimization techniques as appropriate, variously including the following: *Automated exposure control *Adjustment of mA and/or kV according to patient size (this includes techniques or standardized protocols for targeted exams where dose is matched to indication/reason for exam; i.e. extremities or head) *Use of iterative reconstruction technique DLP: 849 mGy-cm FINDINGS: LUNG BASES: There is subsegmental atelectasis at the lung bases. LIVER, GALLBLADDER, AND BILIARY TREE: The liver is low in attenuation suggestive of fatty infiltration. Gallbladder has been removed. There is no biliary duct dilatation. PANCREAS: Unremarkable. SPLEEN: Unremarkable. ADRENAL GLANDS: Unremarkable. KIDNEYS AND URETERS: There is left hydronephrosis and ureteral dilatation. The kidneys are otherwise normal. BLADDER: There is a Marie catheter in bladder. There is a small amount of urine an air-fluid level in the bladder. GASTROINTESTINAL TRACT: There is a new small amount of free air. There is increasing ascites. There is some high attenuation seen dependently in the ascitic fluid in the left lateral abdomen suggestive of extravasated oral contrast. The colon is dilated. There is stool in the distal colon. There is wall thickening of the distal colon. There is an abnormal air fluid stool collection in the pelvis anterior to the distal sigmoid colon and upper rectum and posterior to the uterus suggestive of an abscess or contained perforation. The distal colon is difficult to follow. Small bowel is unremarkable. The appendix is unremarkable. ABDOMINAL WALL: Small umbilical hernia. LYMPH NODES: Normal. VASCULAR: Unremarkable. There is a right femoral line. PELVIC VISCERA: Unremarkable. OSSEOUS STRUCTURES: Degenerative changes of the spine. CT/CT abdomen pelvis wo IV con IMPRESSION: New free air. Increasing ascites. Dependent high attenuation in the ascitic fluid suggestive of extravasated oral contrast. Air-fluid level in the pelvis suggestive of large pelvic abscess or contained perforation. Colitis of the distal colon and partial obstruction. Mild left hydronephrosis and ureteral dilatation into the pelvis. Fatty liver. Fleischner guidelines were followed. Findings were communicated to Dr. Peralta and Dr. Hagan on 05/23/2022 lesion exam.
--- NOTE | 2022-05-18 09:42 | ED_ITS ---
HPI - Abdominal Pain General Chief Complaint: Abdominal Pain Stated Complaint: ABD PAIN X'S WEEKS,SEEN RECENTLY FOR SAME Time Seen by Provider: 05/18/22 08:43 Source: patient Mode of arrival: ambulatory Limitations: no limitations History of Present Illness HPI narrative: 62-year-old female who presents emergency department for evaluation of abdominal pain. The patient was seen recently in the emergency depart on 05/16/2022 (2 days prior) for similar pain. Patient states that she has a history of Crohn's disease and has been having lower abdominal pain for approximately 2 weeks. She states the pain had been intermittent, located in her right lower quadrant area and suprapubic area. She was started on prednisone 40 mg once a day and taper down to 20 mg once a day for a flare-up. She states that this morning at 05:00 hours she had a sudden onset of sharp pain. She points to her suprapubic area and right lower quadrant when asked to localize the pain. She states the pain is severe and is greater than 10/10. At the time of my evaluation, the patient was moaning yelling out out secondary to the severity of her pain. Patient states she was having soft stools but yesterday she had no bowel movement. She denied any blood in her bowel movements. I did review her previous visit on 05/16/2022. She presented with severe cramping worse in the right lower quadrant. Her laboratory evaluation revealed a normal CBC, elevated AST, ALT and alk-phos of 36, 92 and 121. She had a CT scan with IV contrast which revealed thickening of the rectum and a prominent amount of stool throughout the colon and in the rectum otherwise was unremarkable. She was also seen on 01/29/2022 for abdominal pain, nausea and subjective fever. At that time she is having bilateral lower abdominal pain. CT scan at that time revealed constipation with no other significant finding. MD elicited complaint: abdominal pain Pertinent past history: other (Crohn's) Onset (ago): week(s) (2) Pain Consistency: intermittent Location: RLQ and suprapubic Severity: severe Pain scale (0-10): 10 Quality: cramping Radiation: other (To the rectum) Exacerbating factors: nothing Relieving factors: nothing Associated symptoms: fever and chills Related Data Home Medications Medication Instructions Recorded Confirmed duloxetine 30 mg capsule,delayed 30 mg PO DAILY 10/21/20 06/24/21 release mesalamine 0.375 gram 1.5 g PO QAM 10/21/20 06/24/21 capsule,extended release 24 hr (Apriso) methocarbamol 750 mg tablet 750 mg PO TID 10/21/20 06/24/21 multivit with 1 tab PO DAILY 10/21/20 06/24/21 lehwdngq-fpou-LQ-lutein 8 mg iron-400 mcg-300 mcg tablet (Centrum Silver Women) pantoprazole 40 mg tablet,delayed 40 mg PO BEDTIME 10/21/20 06/24/21 release (Protonix) sumatriptan succinate 100 mg 100 mg PO Q2-4H PRN Migraine 10/21/20 06/24/21 tablet (Imitrex) Headache topiramate 200 mg tablet (Topamax) 200 mg PO BID 10/21/20 06/24/21 loratadine 10 mg tablet (Claritin) 10 mg PO DAILY 06/24/21 06/24/21 Previous Rx's Medication Instructions Recorded dicyclomine 20 mg tablet 20 mg PO TID PRN cramps #20 tabs 05/17/22 Allergies Allergy/AdvReac Type Severity Reaction Status Date / Time omeprazole [OMEPRAZOLE] Allergy Severe N/V Verified 01/29/22 15:10 tramadol [From Ultram] Allergy Intermediate ITCHING Verified 01/29/22 15:10 ibuprofen [From Motrin] Allergy Unknown Verified 05/18/22 09:23 Review of Systems Review of Systems Yes all other systems are reviewed and are negative PMFSH Past Medical History Medical History Arthritis Back pain Carpal tunnel syndrome COVID-19 vaccine series completed Crohn's disease Environmental allergies Fibromyalgia GERD (gastroesophageal reflux disease) Herniated cervical disc Hx of migraines Iron deficiency anemia PONV (postoperative nausea and vomiting) Thoracic disc herniation Vitamin D deficiency Surgical History History of esophagogastroduodenoscopy (EGD) History of surgery History of tonsillectomy History of tubal ligation Hx of cholecystectomy Hx of colonoscopy Hx of fusion of cervical spine Hx of shoulder surgery Social History Social History Are you a primary animal care taker to a significant other at home: No Do you presently have visiting nurse or other home services: No Alcohol intake: never Patient Tobacco Use Status: Former Tobacco user Quit Date: 1999 Tobacco use type: Cigarette Use of substances other than those prescribed or required for medical reasons: No Advance Directives: Yes Advance Directives on File: Yes Advance Directives Date on File: 06/23/20 Patient : No Physical Exam ED Vital Signs: Vital Signs - 24 hr 05/18/22 08:45 05/18/22 10:15 05/18/22 12:13 Temperature 98 F 97.8 F 98.9 F Pulse Rate 80 87 107 H Respiratory Rate 24 H 14 16 Blood Pressure 177/95 H 122/68 120/67 Pulse Oximetry 98 91 L Oxygen Delivery Method Room Air Room Air Room Air 05/18/22 13:20 05/18/22 14:19 Temperature 98.5 F 98.8 F Pulse Rate 114 H 114 H Respiratory Rate 16 18 Blood Pressure 157/92 H 147/76 H Pulse Oximetry 96 95 Oxygen Delivery Method Room Air Room Air BMI result Body Mass Index 31.1 Const Other: Awake, alert, female patient, she appears to be in significant distress, she is lying on her left side, she is moaning and screaming secondary to the severity her pain. She is able answer questions. Orientation/consciousness: oriented to person and oriented to place [facility] Head: Yes normal to inspection and Yes atraumatic Ears: hearing grossly normal bilaterally and external ears normal General nose exam: Normal external nose present Face and sinus: Yes normal facial exam Mouth: Normal oral and palatal mucosa present, no drooling and no muffled voice Throat: Yes posterior oropharynx normal Eyes General: appearance normal, both eyes and all related structures Periorbital: periorbital findings normal Eyelids: Yes eyelids normal Conjunctivae: conjunctivae normal Pupils: Equal, round and reactive pupils present EOM: EOMs intact bilaterally Neck Neck: Yes normal visual inspection, Yes full ROM and Yes no lymphadenopathy Chest Chest palpation & inspection: normal inspection of the chest Resp Effort & Inspection: normal respiratory effort Auscultation: clear to auscultation bilaterally Cardio Rate: regular rate Rhythm: regular rhythm Heart sounds: S1 normal heart sound present, S2 normal heart sound present and no murmurs GI Inspection: Yes normal to inspection Palpation (GI): Soft to palpation and Tenderness to palpation present (GI) in the RLQ and suprapubicly Auscultation: normal bowel sounds General: Yes no CVA tenderness Back/Spine/Pelvis Back: no CVA tenderness Skin General skin exam: no rashes or lesions noted Neuro General: oriented to person, oriented to place and moves all extremities Cranial nerves: Yes Equal, round and reactive pupils present Cognition (Neuro): normal cognition Motor exam (neuro): 5/5 motor strength present throughout Extrem General: Yes normal to inspection Psych Appearance: grossly normal Course Course Course Narrative: 62-year-old female who presents emergency department for evaluation of interim lower abdominal pain x2 weeks with severe pain that started this morning at 05:00 hours. The patient does have a history of Crohn's disease and this is her 3rd visit to the emergency department, she was seen here 2 days prior with similar pain but the pain was not a severe. On presentation the patient appears to be in significant distress secondary to her pain. She does have and right lower quadrant tenderness. Did order laboratory evaluation to include CBC, CMP, lipase, ESR, CRP and urinalysis. CT scan of abdomen pelvis with IV contrast will be repeated given the severity of her pain. Also ordered Dilaudid 1 mg IV and Zofran 4 mg IV. This will be repeated as needed. Patient was also ordered to get normal saline x1 L. 1706: Laboratory evaluation: WBC normal 10,700 CRP elevated 1.61 ESR normal 8. Radiology evaluation: Radiologist reading as follows: IMPRESSION: Severe constipation and question of partial obstruction. Worsening severe colitis of the sigmoid colon and proctitis with increased wall thickening, stranding of the surrounding fat and small amount of fluid in the pelvis. There are several small air collections questionable for air in the wall of the sigmoid colon. No evidence of free air. Given this finding, I will treat the patient with Zosyn 4.5 g IV. I will d iscuss admission with the covering hospitalist I will consult GI. MDM - Abdominal Pain Lab Data Result diagrams: 05/18/22 10:31 05/18/22 10:30 Labs: Lab Results 05/18/22 05/18/22 05/18/22 Range/Units 10:30 10:31 11:28 WBC 10.7 (4.8-10.8) X10*3/uL RBC 5.01 (4.20-5.50) X10*6/uL Hgb 15.1 (12.0-16.0) g/dl Hct 44.8 (37.0-47.0) % MCV 89.4 (80.0-98.0) fL MCH 30.1 (27.0-33.0) pg MCHC 33.7 (31.0-35.0) g/dl RDW 12.5 (11.0-16.0) % Plt Count 223 (160-400) X10*3/uL MPV 10.4 (9.4-12.3) fL Immature Gran % (Auto) 0.6 H (0.0-0.4) % Neut % (Auto) 75.2 H (45-73) % Lymph % (Auto) 19.9 L (20-40) % [place] % (Auto) 2.8 (2-11) % Eos % (Auto) 1.1 (0-4) % Baso % (Auto) 0.4 (0-2) % Lymph # (Auto) 2.1 (1.2-4.9) X10*3/uL [place] # (Auto) 0.3 (0.1-1.2) X10*3/uL Eos # (Auto) 0.1 (0.0-0.4) X10*3/uL Baso # (Auto) 0.0 (0.0-0.2) X10*3/uL Abs Immat Gran (auto) 0.06 H (0.00-0.03) X10*3/uL Absolute Neuts (auto) 8.0 (2.0-8.3) x10*3/uL Absolute Nucleated RBC 0.000 (0.0-0.012) X10*3/uL Nucleated RBC % (auto) 0.0 (0.0-0.2) /100WBC ESR 8 (0-20) MM/HR Sodium 144 (135-145) mmol/L Potassium 3.4 (3.3-5.1) mmol/L Chloride 109 H (96-108) mmol/L Carbon Dioxide 20 L (22-29) mmol/L Anion Gap 18 (12-20) BUN 15 (9-16) mg/dL Creatinine 0.84 (0.5-1.4) mg/dL Estim Creat Clear Calc 70.3 Estimated GFR > 60 Random Glucose 129 H (60-115) mg/dL Calcium 8.5 D (8.4-10.2) mg/dL Total Bilirubin 0.5 (0.0-1.0) mg/dL AST 29 (5-31) U/L ALT 83 H (0-31) U/L Alkaline Phosphatase 114 (39-117) U/L C-Reactive Protein 1.61 H (< or = 0.50) mg/dL Total Protein 7.1 (6.5-8.0) g/dL Albumin 4.3 (3.5-5.0) g/dL Lipase 16 (8-78) U/L Urine Color Urine Appearance Urine pH (5.0-9.0) Ur Specific [place] (1.005-1.025) Urine Protein (Neg-Trace) mg/dL Urine Glucose (UA) (Negative) mg/dL Urine Ketones (Negative) mg/dL Urine Blood (Negative) Urine Nitrite (Negative) Ur Leukocyte Esterase (Negative) 05/18/22 Range/Units 14:53 WBC (4.8-10.8) X10*3/uL RBC (4.20-5.50) X10*6/uL Hgb (12.0-16.0) g/dl Hct (37.0-47.0) % MCV (80.0-98.0) fL MCH (27.0-33.0) pg MCHC (31.0-35.0) g/dl RDW (11.0-16.0) % Plt Count (160-400) X10*3/uL MPV (9.4-12.3) fL Immature Gran % (Auto) (0.0-0.4) % Neut % (Auto) (45-73) % Lymph % (Auto) (20-40) % [place] % (Auto) (2-11) % Eos % (Auto) (0-4) % Baso % (Auto) (0-2) % Lymph # (Auto) (1.2-4.9) X10*3/uL [place] # (Auto) (0.1-1.2) X10*3/uL Eos # (Auto) (0.0-0.4) X10*3/uL Baso # (Auto) (0.0-0.2) X10*3/uL Abs Immat Gran (auto) (0.00-0.03) X10*3/uL Absolute Neuts (auto) (2.0-8.3) x10*3/uL Absolute Nucleated RBC (0.0-0.012) X10*3/uL Nucleated RBC % (auto) (0.0-0.2) /100WBC ESR (0-20) MM/HR Sodium (135-145) mmol/L Potassium (3.3-5.1) mmol/L Chloride (96-108) mmol/L Carbon Dioxide (22-29) mmol/L Anion Gap (12-20) BUN (9-16) mg/dL Creatinine (0.5-1.4) mg/dL Estim Creat Clear Calc Estimated GFR Random Glucose (60-115) mg/dL Calcium (8.4-10.2) mg/dL Total Bilirubin (0.0-1.0) mg/dL AST (5-31) U/L ALT (0-31) U/L Alkaline Phosphatase (39-117) U/L C-Reactive Protein (< or = 0.50) mg/dL Total Protein (6.5-8.0) g/dL Albumin (3.5-5.0) g/dL Lipase (8-78) U/L Urine Color Yellow Urine Appearance Clear Urine pH 7.0 (5.0-9.0) Ur Specific [place] >= 1.030 H (1.005-1.025) Urine Protein Negative (Neg-Trace) mg/dL Urine Glucose (UA) Negative (Negative) mg/dL Urine Ketones Negative (Negative) mg/dL Urine Blood Negative (Negative) Urine Nitrite Negative (Negative) Ur Leukocyte Esterase Negative (Negative) Discharge Plan Discharge Patient Disposition: Admitted As Inpatient Prescriptions: No Action loratadine [Claritin] 10 mg Tablet 10 mg PO DAILY dicyclomine 20 mg tablet 20 mg PO TID PRN (Reason: cramps) Qty: 20 0RF mesalamine [Apriso] 0.375 gram capsule,extended release 24hr 1.5 g PO QAM topiramate [Topamax] 200 mg tablet 200 mg PO BID sumatriptan succinate [Imitrex] 100 mg tablet 100 mg PO Q2-4H PRN (Reason: Migraine Headache) Rx Instructions: do not exceed 2 doses per 24 hrs methocarbamol 750 mg tablet 750 mg PO TID pantoprazole [Protonix] 40 mg tablet,delayed release (DR/EC) 40 mg PO BEDTIME duloxetine 30 mg capsule,delayed release(DR/EC) 30 mg PO DAILY Centrum Silver Women 8 mg iron-400 mcg-300 mcg tablet 1 tab PO DAILY
[2022-05-18] MEDS: ondansetron HCL 4 MG/2 ML VIAL IVPUSH (09:44)
[2022-05-18] MEDS: HYDROmorphone HCl 1 MG/ML SYRINGE IVPUSH ×4 (09:44→18:12)
[2022-05-18] MEDS: 0.9 % Sodium Chloride 1,000 ML 999 ML IV ×3 (09:44→18:08)
--- NOTE | 2022-05-18 09:50 | PC.NURSE ---
pt a/o x 4 no sob/bernardo noted skin pink warm dry speaks in full sentences. lungs -nichol upper lobes - cta, nichol lower lobes - diminished. heart sounds - regular. abd soft, tender to touch. pt aware of plan of care. at bedside.
[2022-05-18] MEDS: diphenhydrAMINE HCL 50 MG/ML VIAL IVPUSH (10:26)
[2022-05-18 10:37] LABS: MANUAL DIFF FLAG NO
[2022-05-18 10:48] LABS: Basophils Percent Auto 0.4 % (0-2); Eosinophils Absolute Auto 0.1 X10*3/uL (0.0-0.4); Eosinophils Percent Auto 1.1 % (0-4); Hematocrit 44.8 % (37.0-47.0); Hemoglobin 15.1 g/dl (12.0-16.0); Imm Gran Abs Auto 0.06 X10*3/uL (0.00-0.03); Imm Gran Pct Auto 0.6 % (0.0-0.4); Lymphocytes Absolute Auto 2.1 X10*3/uL (1.2-4.9); Lymphocytes Percent Auto 19.9 % (20-40); Mean Corpuscular HGB Conc 33.7 g/dl (31.0-35.0); Mean Corpuscular Hemoglobin 30.1 pg (27.0-33.0); Mean Corpuscular Volume 89.4 fL (80.0-98.0); Mean Platelet Volume 10.4 fL (9.4-12.3); Monocytes Absolute Auto 0.3 X10*3/uL (0.1-1.2); Monocytes Percent Auto 2.8 % (2-11); Neutrophils Percent Auto 75.2 % (45-73); Platelet Count 223 X10*3/uL (160-400); Red Blood Count 5.01 X10*6/uL (4.20-5.50); Red Cell Distribution Width 12.5 % (11.0-16.0); White Blood Count 10.7 X10*3/uL (4.8-10.8)
[2022-05-18 11:00] LABS: Alanine Aminotransferase 83 U/L (0-31); Albumin Level 4.3 g/dL (3.5-5.0); Alkaline Phosphatase 114 U/L (39-117); Anion Gap 18 (12-20); Aspartate Amino Transferase 29 U/L (5-31); Bilirubin Total 0.5 mg/dL (0.0-1.0); Blood Urea Nitrogen 15 mg/dL (9-16); C Reactive Protein 1.61 mg/dL (< or = 0.50); Calcium 8.5 mg/dL (8.4-10.2); Carbon Dioxide 20 mmol/L (22-29); Chloride 109 mmol/L (96-108); Creatinine Clr Calc Pharmacy 70.3; Estimated Glomerular Filt Rate > 60; Glucose Random 129 mg/dL (60-115); Lipase 16 U/L (8-78); Potassium 3.4 mmol/L (3.3-5.1); Sodium 144 mmol/L (135-145); Total Protein 7.1 g/dL (6.5-8.0)
[2022-05-18 12:15] LABS: Erythrocyte Sedimentation Rate 8 MM/HR (0-20)
[2022-05-18] MEDS: iohexoL 350 MG/ML 100 ML INFUS..BTL IV (13:27)
--- NOTE | 2022-05-18 14:23 | PC.NURSE ---
pt c/o unable to void bladder scan to be done
--- NOTE | 2022-05-18 14:30 | MHC.HEMONC ---
patient uble to void bladder scan done [id number] was recorded provider and rn notified
--- NOTE | 2022-05-18 14:58 | PC.NURSE ---
This RN placed straight catheter. Catheter removed. Urine output 450ml. Urine collection sent to lab
[2022-05-18 15:10] LABS: Appearance Urine Clear; Color Urine Yellow; Glucose Urine UA Negative (Negative); Leukocyte Esterase Urine Negative (Negative); Nitrite Urine Negative (Negative); Specific Gravity - Urine >= 1.030 (1.005-1.025); Urine Blood Negative (Negative); Urine Ketones Negative (Negative); Urine Protein Negative (Neg-Trace)
--- NOTE | 2022-05-18 18:04 | PHA.MEDREC ---
Pharmacy Consult ? Medication Reconciliation Pharmacy has completed the medication reconciliation. Patient confirmed all medications. Reports she was just prescribed dicylomine the other day but did not like it. reports she is due to [facility] on sunday. Karen Andrews, HernandezD
[2022-05-18] MEDS: Piperacillin Sodium/Tazobactam 4.5 GM in 0.9 % Sodium Chloride 100 ML IV (18:07)
[2022-05-18] MEDS: Hydrocortisone Sod Succ/PF 100 MG VIAL IVPUSH (18:08)
--- NOTE | 2022-05-18 18:33 | P.HPHOSP_ITS ---
History of Present Illness Date of Service: 05/18/22 Attending physician on admission: Saleem Mukherjee Chief Complaint: abdominal pain this is a 62-year-old female with history of Crohn's disease who presents to the emergency department with abdominal pain. She was seen in the emergency department 2 days ago with intermittent lower abdominal pain, CT scan at that time showing prominent stool and mild rectal wall thickening. She was started on a trial of dicyclomine and discharged home. Her abdominal pain has become progressively worse and is now persistent. Her pain is primarily located in the right lower quadrant. She has not had bowel movement for the past 2 days. She has had decreased p.o. intake due to the abdominal pain. She has nausea but denies vomiting. She has not had any diarrhea. She reports intermittent mucus and some stool over the past several weeks as well as intermittent low-grade fevers which she reports has been ongoing for a few months. She has been taking mesalamine daily and previously her Crohn's disease was well controlled. Today in the emergency department she was noted to have a temperature of 100.4 degrees, was tachycardic. Repeat CT scan of the abdomen showed severe constipation and question of partial obstruction with worsening severe colitis of the sigmoid colon and proctitis with increased wall thickening and stranding surrounding fat. She was treated with multiple doses of IV narcotics for adequate pain control, as well as IV Zosyn. The emergency department provider discussed the case with Gastroenterology who recommended admitting the patient in starting systemic steroids. Review of Systems Review of Systems: Yes all other systems are reviewed and are negative Constitutional: Constitutional: Denies chills and Reports fever(s) ENT: Denies dizziness Cardiovascular: Cardiovascular: Denies chest pain and Denies palpitations Respiratory: Respiratory: Denies cough Gastrointestinal: Gastrointestinal: Reports abdominal pain, Denies diarrhea and Reports nausea Neurologic: Denies dizziness Endocrine: Endocrine: Denies palpitations [facility] Medical History Arthritis Back pain Carpal tunnel syndrome COVID-19 vaccine series completed Crohn's disease Environmental allergies Fibromyalgia GERD (gastroesophageal reflux disease) Herniated cervical disc Hx of migraines Iron deficiency anemia PONV (postoperative nausea and vomiting) Thoracic disc herniation Vitamin D deficiency Functional capacity: independent ambulation Pertinent family history: no family history of Crohns Surgical History History of esophagogastroduodenoscopy (EGD) History of surgery History of tonsillectomy History of tubal ligation Hx of cholecystectomy Hx of colonoscopy Hx of fusion of cervical spine Hx of shoulder surgery Social History Are you a primary resident care director to a significant other at home: No Do you presently have visiting nurse or other home services: No Alcohol intake: never Patient Tobacco Use Status: Former Tobacco user Quit Date: 1999 Tobacco use type: Cigarette Use of substances other than those prescribed or required for medical reasons: No Advance Directives: Yes Advance Directives on File: Yes Advance Directives Date on File: 06/23/20 Patient : No Meds Allergies Allergy/AdvReac Type Severity Reaction Status Date / Time omeprazole [OMEPRAZOLE] Allergy Severe N/V Verified 01/29/22 15:10 tramadol [From Ultram] Allergy Intermediate ITCHING Verified 01/29/22 15:10 ibuprofen [From Motrin] Allergy Unknown Verified 05/18/22 09:23 Active Medications: Current Medications Acetaminophen (Acetaminophen 325 Mg Tablet) 650 mg PO Q6H PRN PRN Reason: Pain, Mild (Pain Scale 1-3) Docusate Sodium (Docusate Sodium 100 Mg Capsule) 100 mg PO DAILY PRN PRN Reason: Constipation Duloxetine HCl (Duloxetine Hcl 60 Mg Capsule.Dr) 60 mg PO BEDTIME [facility] Enoxaparin Sodium (Enoxaparin Sodium 40 Mg/0.4 Ml Syringe) 40 mg SUBCUT Q24H [facility] Hydrocortisone Sodium Succinate (Hydrocortisone Sod Succ/Pf 100 Mg Vial) 100 mg IVPUSH Q12H [facility] Hydromorphone HCl (Hydromorphone Hcl 0.5 Mg/0.5 Ml Syringe) 0.5 mg IVPUSH Q4H PRN; Protocol PRN Reason: Pain, Severe (Pain Scale 7-10) Piperacillin Sod/Tazobactam (Sod 3.375 gm/ Sodium Chloride) 50 mls @ 100 mls/hr IV Q6H GAUDENCIO Non-Formulary Medication (Mesalamine [Apriso]) 1.5 gm PO QAM [facility] Ondansetron HCl (Ondansetron Hcl 4 Mg/2 Ml Vial) 4 mg IVPUSH Q8H PRN PRN Reason: Nausea and Vomiting Pharmacy Consult (Consult Rx Perform Med Rec) 1 each MISCELLANE ONCE PRN PRN Reason: Consult order Sodium Chloride (0.9 % Sodium Chloride Flush 3 Ml Syringe) 3 ml IVFLUSH QSHIFT [facility] Topiramate (Topiramate 100 Mg Tablet) 200 mg PO BID [facility] Home Medications Medication Instructions Recorded Confirmed Last Taken Type mesalamine 0.375 gram 1.5 g PO QAM 10/21/20 05/18/22 05/17/22 History capsule,extended release 24 hr (Apriso) methocarbamol 750 mg tablet 750 mg PO TID 10/21/20 05/18/22 05/17/22 History multivit with 1 tab PO DAILY 10/21/20 05/18/22 05/17/22 History ktpivbod-hywr-AT-lutein 8 mg iron-400 mcg-300 mcg tablet (Centrum Silver Women) pantoprazole 40 mg tablet,delayed 40 mg PO BEDTIME 10/21/20 05/18/22 05/17/22 History release (Protonix) loratadine 10 mg tablet (Claritin) 10 mg PO DAILY 06/24/21 05/18/22 05/17/22 History duloxetine 60 mg capsule,delayed 1 cap PO BEDTIME 05/18/22 05/18/22 05/17/22 History release fremanezumab-vfrm 225 mg/1.5 mL 1.5 mg subcut Q30D 05/18/22 05/18/22 04/29/22 History subcutaneous syringe (Ajovy Syringe) ondansetron 8 mg disintegrating 1 tab PO DAILY PRN Nausea 05/18/22 05/18/22 Unknown History tablet rizatriptan 10 mg tablet 1 tab PO DAILY PRN Migraine 05/18/22 05/18/22 Unknown History Headache topiramate 100 mg tablet 2 tab PO BID 05/18/22 05/18/22 05/17/22 History Physical Exam Vital Signs and Narrative: Vital Signs: Last Vital Signs Temp 100.4 F 05/18/22 17:58 Pulse 120 H 05/18/22 18:12 Resp 16 05/18/22 17:58 BP 112/62 05/18/22 18:12 Pulse Ox 95 05/18/22 17:58 O2 Del Method 05/18/22 17:58 BMI result Body Mass Index 31.1 Const: Other: appears uncomfortable General: alert and awake Nutritional Appearance: overweight Orientation/consciousness: patient oriented x3 Resp: Effort & Inspection: normal respiratory effort, able to speak in complete sentences and no use of accessory muscles Cardio: Rate: tachycardic Heart sounds: S1 normal heart sound present and S2 normal heart sound present GI: Other: tender to palpation RLQ Palpation (GI): Soft to palpation Neuro: Other: grossly nonfocal General: patient oriented x3 Extrem: General: Yes no pedal edema Results Labs CBC and Chem 7: 05/18/22 10:31 05/18/22 10:30 Labs: Laboratory Results - last 24 hr 05/18/22 05/18/22 05/18/22 10:30 10:31 11:28 MCV 89.4 MCH 30.1 MCHC 33.7 RDW 12.5 Plt Count 223 MPV 10.4 Immature Gran % (Auto) 0.6 H Neut % (Auto) 75.2 H Lymph % (Auto) 19.9 L [place] % (Auto) 2.8 Eos % (Auto) 1.1 Baso % (Auto) 0.4 Lymph # (Auto) 2.1 [place] # (Auto) 0.3 Eos # (Auto) 0.1 Baso # (Auto) 0.0 Abs Immat Gran (auto) 0.06 H Absolute Neuts (auto) 8.0 Absolute Nucleated RBC 0.000 Nucleated RBC % (auto) 0.0 ESR 8 Anion Gap 18 Estim Creat Clear Calc 70.3 Estimated GFR > 60 Random Glucose 129 H Calcium 8.5 D Total Bilirubin 0.5 AST 29 ALT 83 H Alkaline Phosphatase 114 C-Reactive Protein 1.61 H Total Protein 7.1 Albumin 4.3 Lipase 16 Urine Color Urine Appearance Urine pH Ur Specific [place] Urine Protein Urine Glucose (UA) Urine Ketones Urine Blood Urine Nitrite Ur Leukocyte Esterase 05/18/22 14:53 MCV MCH MCHC RDW Plt Count MPV Immature Gran % (Auto) Neut % (Auto) Lymph % (Auto) [place] % (Auto) Eos % (Auto) Baso % (Auto) Lymph # (Auto) [place] # (Auto) Eos # (Auto) Baso # (Auto) Abs Immat Gran (auto) Absolute Neuts (auto) Absolute Nucleated RBC Nucleated RBC % (auto) ESR Anion Gap Estim Creat Clear Calc Estimated GFR Random Glucose Calcium Total Bilirubin AST ALT Alkaline Phosphatase C-Reactive Protein Total Protein Albumin Lipase Urine Color Yellow Urine Appearance Clear Urine pH 7.0 Ur Specific [place] >= 1.030 H Urine Protein Negative Urine Glucose (UA) Negative Urine Ketones Negative Urine Blood Negative Urine Nitrite Negative Ur Leukocyte Esterase Negative Imaging Radiologist's Impressions: Impressions Abdomen/Pelvis CT 05/18/22 13:25 IMPRESSION: Severe constipation and question of partial obstruction. Worsening severe colitis of the sigmoid colon and proctitis with increased wall thickening, stranding of the surrounding fat and small amount of fluid in the pelvis. There are several small air collections questionable for air in the wall of the sigmoid colon. No evidence of free air. Fleischner guidelines were followed. Assessment and Plan (1) Exacerbation of Crohn's disease: Qualifiers: Digestive disease complication type: unspecified complication Qualified Code(s): K50.919 - Crohn's disease, unspecified, with unspecified complications Status: Acute (2) Colitis: Status: Acute Plan This is a 62-year-old female with history of Crohn's disease on mesalamine, fibromyalgia who presents to the emergency department with abdominal pain found to have colitis and possible partial obstruction abdominal pain Secondary to colitis/ proctitis, probable Crohn's flare no evidence of sepsis at this time - IV hydrocortisone 100 q.12 hours - IV Zosyn - GI consultation - general surgery consultation given small air collections questionable for air in the wall of the sigmoid colon as well as possible partial obstruction - NPO - pain control - continue mesalamine mood/fibromyalgia Continue duloxetine DVT prophylaxis -Lovenox Code status-full code attending - dr. mukherjee he is given severity of colitis and possible small-bowel obstruction patient will likely require 2 midnight stay in the hospital for IV antibiotics, systemic steroids, evaluation by both Gastroenterology as well as General surgery and pain control Quality Stroke Does the patient have a stroke diagnosis?: No VTE Prior VTE?: No VTE Risk Level:: Medical - moderate - high VTE Device Contraindication: N/A - Device Ordered VTE Drug Contraindication: N/A - Med Ordered
[2022-05-18] MEDS: Topiramate 100 MG TABLET 200 MG PO (20:07)
[2022-05-18] MEDS: DULoxetine HCl 60 MG CAPSULE.DR PO (20:07)
[2022-05-18] MEDS: Enoxaparin Sodium 40 MG/0.4 ML SYRINGE SUBCUT (20:08)
[2022-05-18] MEDS: Lactated Ringers 1,000 ML 100 ML IVCONT (20:56)
--- NOTE | 2022-05-18 20:57 | PC.NURSE ---
PT very drowsy and due to discomfort with movement unable to get oobto bathroom easily [place] placed.
[2022-05-19] VITALS (12 sets, daily range): BP systolic 94–134; BP diastolic 52–76; PULSE 99–122; RESP 16–25; TEMP 37.2–38.3; O2SAT 92–98; BMI 31.1
[2022-05-19] MEDS: HYDROmorphone HCl 0.5 MG/0.5 ML SYRINGE IVPUSH ×8 (00:15→23:31)
[2022-05-19] MEDS: Piperacillin Sodium/Tazobactam 3.375 GM in 0.9 % Sodium Chloride 50 ML IV ×4 (00:15→18:16)
[2022-05-19 02:14] LABS: COVID-19 Test Negative (Negative)
--- NOTE | 2022-05-19 04:08 | PC.NURSE ---
RN to bedside for primary evaluation. Pt found to be laying in bed tense, gripping both side rails, moaning out in discomfort. Pt reporting 10/10 lower abdominal pain and is requesting additional pain medication. Pt advised that medication is due every 4 hours and it was currently too soon for additional medication. Pt requested ice chips and reports inability to void since prior straight cath. RN consulted Hospitalist to request an increase in the dosing amount and/or decreasing the frequency as the pt's pain is not being managed for the 4 hour period and she had been receiving 1mg doses in the ED. Per hospitalist the pt can have ice chips and reports the frequency of pain medication will be adjusted. RN requested a bladder scan as pt noted to have pure wick in place with no urine in the collection canister and was found to have >400 mls. RN to medicate the pt and see if increased pain and tense presentation is affecting the pt's ability to void. Call ebll is in reach and RN will continue to monitor.
--- NOTE | 2022-05-19 04:20 | PC.NURSE ---
the pt reports beginning to have/feel a migraine coming on stating because i haven't eaten anything in so long I'm getting a wicked migraine . RN advised pt that she has PRN tylenol available but the pt declined stating That doesn't help and reports taking rizatriptan at home. PT also requesting that staff place and leave a odell catheter in place due to difficulty voiding since arrival per pt reports adding that she has not voided since straight cath 05/18 at 2pm. Hospitalist made aware via tigertext of the pt's request for migraine medication and of the pt's recent bladder scan value of 444 and inability to void. RN awaiting hospitalist advice
--- NOTE | 2022-05-19 04:32 | PC.NURSE ---
PT's IV fluids were not infusing as IV Pump battery noted to be drained. RN just resumed the pt's LR at 100MLs per hour, no new bag hung at this time as approx 750mls remain on previous bag. Pt reports improvement in pain s/p medication administration and appears more comfortable.
--- NOTE | 2022-05-19 06:51 | PM.EVENT ---
Event Note Date of Service: 05/19/22 Event Note: Patient has urinary retention, also complaining of poor pain control. Will increase her pain medication frequency, place her on Marie catheter as she was found to have 600+ retention of urine
[2022-05-19 07:06] LABS: Hematocrit 40.7 % (37.0-47.0); Hemoglobin 13.3 g/dl (12.0-16.0); Mean Corpuscular HGB Conc 32.7 g/dl (31.0-35.0); Mean Corpuscular Hemoglobin 29.4 pg (27.0-33.0); Mean Platelet Volume 10.3 fL (9.4-12.3); Platelet Count 209 X10*3/uL (160-400); Red Blood Count 4.52 X10*6/uL (4.20-5.50); White Blood Count 16.9 X10*3/uL (4.8-10.8)
[2022-05-19] MEDS: Hydrocortisone Sod Succ/PF 100 MG VIAL IVPUSH ×2 (07:24→17:33)
[2022-05-19] MEDS: 0.9 % Sodium Chloride Flush 3 ML SYRINGE IVFLUSH ×2 (07:25→20:40)
[2022-05-19 07:44] LABS: Anion Gap 16 (12-20); Blood Urea Nitrogen 16 mg/dL (9-16); Calcium 7.8 mg/dL (8.4-10.2); Carbon Dioxide 19 mmol/L (22-29); Chloride 110 mmol/L (96-108); Creatinine Clr Calc Pharmacy 71.1; Estimated Glomerular Filt Rate > 60; Glucose Random 143 mg/dL (60-115); Potassium 3.3 mmol/L (3.3-5.1); Sodium 142 mmol/L (135-145)
--- NOTE | 2022-05-19 08:05 | PM.CNGS ---
History of Present Illness Consult details Consult date: 05/19/22 Reason for consult: abdominal pain Requesting physician: Jenna Corey Narrative: The patient is a 62-year-old woman with a past medical history of Crohn's being managed by Dr. Peralta with mesalamine and prednisone. Her prednisone was recently decreased according to EMR notes. Patient also reports a history of fibromyalgia and notes that about 2 weeks ago she started to have crampy abdominal pain predominantly in the lower infraumbilical and right lower quadrant area she also reports a history of gastroparesis and is on Colace because of chronic constipation issues. She presented to the emergency department a couple days ago with abdominal pain and had normal labs. At that time, her CT demonstrated constipation. She has had ongoing abdominal pain and repeat CT shows colitis, proctitis and constipation. There is no free air but I was asked to evaluate her given her constellation of symptoms. The patient denies taking any anti diarrheal medications. There was telephone communication with GI. Patient reports a past surgical history of a tubal and cholecystectomy. She denies any bowel resections related to inflammatory bowel disease and she denies any stimulators being placed for her gastroparesis. Review of Systems Review of Systems: Yes all other systems are reviewed and are negative Constitutional: Constitutional: Reports as per [facility] Past Medical History Medical History (Updated 05/19/22 @ 08:10 by Andrea Thapa MD) Arthritis Back pain Carpal tunnel syndrome COVID-19 vaccine series completed Crohn's disease Environmental allergies Fibromyalgia GERD (gastroesophageal reflux disease) Herniated cervical disc Hx of migraines Iron deficiency anemia PONV (postoperative nausea and vomiting) Thoracic disc herniation Vitamin D deficiency Functional capacity: independent ambulation Surgical History Surgical History History of esophagogastroduodenoscopy (EGD) History of surgery History of tonsillectomy History of tubal ligation Hx of cholecystectomy Hx of colonoscopy Hx of fusion of cervical spine Hx of shoulder surgery Social History Social History Are you a primary healthcare economics manager to a significant other at home: No Do you presently have visiting nurse or other home services: No Alcohol intake: never Patient Tobacco Use Status: Former Tobacco user Quit Date: 1999 Tobacco use type: Cigarette Use of substances other than those prescribed or required for medical reasons: No Advance Directives: Yes Advance Directives on File: Yes Advance Directives Date on File: 06/23/20 Patient : No Meds Allergies Allergy/AdvReac Type Severity Reaction Status Date / Time omeprazole [OMEPRAZOLE] Allergy Severe N/V Verified 01/29/22 15:10 tramadol [From Ultram] Allergy Intermediate ITCHING Verified 01/29/22 15:10 ibuprofen [From Motrin] Allergy Unknown Verified 05/18/22 09:23 Active Medications: Current Medications Acetaminophen (Acetaminophen 325 Mg Tablet) 650 mg PO Q6H PRN PRN Reason: Pain, Mild (Pain Scale 1-3) Docusate Sodium (Docusate Sodium 100 Mg Capsule) 100 mg PO DAILY PRN PRN Reason: Constipation Duloxetine HCl (Duloxetine Hcl 60 Mg Capsule.Dr) 60 mg PO BEDTIME [facility] Last Admin: 05/18/22 20:07 Dose: 60 mg Enoxaparin Sodium (Enoxaparin Sodium 40 Mg/0.4 Ml Syringe) 40 mg SUBCUT Q24H [facility] Last Admin: 05/18/22 20:08 Dose: 40 mg Hydrocortisone Sodium Succinate (Hydrocortisone Sod Succ/Pf 100 Mg Vial) 100 mg IVPUSH Q12H [facility] Last Admin: 05/19/22 07:24 Dose: 100 mg Hydromorphone HCl (Hydromorphone Hcl 0.5 Mg/0.5 Ml Syringe) 0.5 mg IVPUSH Q3H PRN; Protocol PRN Reason: Pain, Severe (Pain Scale 7-10) Last Admin: 05/19/22 07:24 Dose: 0.5 mg Piperacillin Sod/Tazobactam (Sod 3.375 gm/ Sodium Chloride) 50 mls @ 100 mls/hr IV Q6H [facility] Last Infusion: 05/19/22 07:57 Dose: Infused Lactated Ringer's (Lr) 1,000 mls @ 100 mls/hr IVCONT .Q10H [facility] Last Admin: 05/19/22 04:30 Dose: Not Given Non-Formulary Medication (Mesalamine [Apriso]) 1.5 gm PO DAILY [facility] Ondansetron HCl (Ondansetron Hcl 4 Mg/2 Ml Vial) 4 mg IVPUSH Q8H PRN PRN Reason: Nausea and Vomiting Pharmacy Consult (Consult Rx Perform Med Rec) 1 each MISCELLANE ONCE PRN PRN Reason: Consult order Sodium Chloride (0.9 % Sodium Chloride Flush 3 Ml Syringe) 3 ml IVFLUSH QSHIFT [facility] Last Admin: 05/19/22 07:25 Dose: 3 ml Topiramate (Topiramate 100 Mg Tablet) 200 mg PO BID [facility] Last Admin: 05/18/22 20:07 Dose: 200 mg Home Medications Medication Instructions Recorded Confirmed Last Taken Type mesalamine 0.375 gram 1.5 g PO QAM 10/21/20 05/18/22 05/17/22 History capsule,extended release 24 hr (Apriso) methocarbamol 750 mg tablet 750 mg PO TID 10/21/20 05/18/22 05/17/22 History multivit with 1 tab PO DAILY 10/21/20 05/18/22 05/17/22 History yyiyjdkt-goch-KL-lutein 8 mg iron-400 mcg-300 mcg tablet (Centrum Silver Women) pantoprazole 40 mg tablet,delayed 40 mg PO BEDTIME 10/21/20 05/18/22 05/17/22 History release (Protonix) loratadine 10 mg tablet (Claritin) 10 mg PO DAILY 06/24/21 05/18/22 05/17/22 History duloxetine 60 mg capsule,delayed 1 cap PO BEDTIME 05/18/22 05/18/22 05/17/22 History release fremanezumab-vfrm 225 mg/1.5 mL 1.5 mg subcut Q30D 05/18/22 05/18/22 04/29/22 History subcutaneous syringe (Ajovy Syringe) ondansetron 8 mg disintegrating 1 tab PO DAILY PRN Nausea 05/18/22 05/18/22 Unknown History tablet rizatriptan 10 mg tablet 1 tab PO DAILY PRN Migraine 05/18/22 05/18/22 Unknown History Headache topiramate 100 mg tablet 2 tab PO BID 05/18/22 05/18/22 05/17/22 History Physical Exam Vital Signs: Vital Signs: Last Vital Signs Temp 99.5 F 05/19/22 00:50 Pulse 114 H 05/19/22 03:59 Resp 25 H 05/19/22 03:59 BP 134/72 05/19/22 03:59 Pulse Ox 95 05/19/22 03:59 O2 Del Method 05/19/22 03:59 BMI result Body Mass Index 31.1 The patient is non-toxic & in good spirits NC/AT, PERRLA, EOMI Mood, affect & judgment all appear appropriate Sclera anicteric conjunctiva pink and moist Oropharynx is clear with no aphthous ulcers, Mallampati class 4, mucous membranes moist Neck is supple with no masses, adenopathy or bruits Thyroid is nontender and free of dominant masses Heart is regular, normal S1-S2 no rubs or murmurs Lungs are clear and equal anteriorly with no audible wheezing, rubs or dullness to percussion No CVA tenderness present Abdomen is obese. There is diffuse tenderness with most pain in the suprapubic/infraumbilical location and right lower quadrant. No peritoneal sign to percussion is present. No HSM, rebound, rigidity, guarding, masses or bruits are present. Rectal exam is deferred Skin has good turgor and is free of rashes Extremities free of cyanosis clubbing edema Results Labs Result diagrams: 05/19/22 06:37 05/19/22 06:37 Labs: Abnormal lab results 05/18/22 05/18/22 05/18/22 Range/Units 10:30 10:31 14:53 WBC (4.8-10.8) X10*3/uL Immature Gran % (Auto) 0.6 H (0.0-0.4) % Neut % (Auto) 75.2 H (45-73) % Lymph % (Auto) 19.9 L (20-40) % Abs Immat Gran (auto) 0.06 H (0.00-0.03) X10*3/uL Chloride 109 H (96-108) mmol/L Carbon Dioxide 20 L (22-29) mmol/L Random Glucose 129 H (60-115) mg/dL Calcium (8.4-10.2) mg/dL ALT 83 H (0-31) U/L C-Reactive Protein 1.61 H (< or = 0.50) mg/dL Ur Specific [place] >= 1.030 H (1.005-1.025) 05/19/22 05/19/22 Range/Units 06:37 06:37 WBC 16.9 H (4.8-10.8) X10*3/uL Immature Gran % (Auto) (0.0-0.4) % Neut % (Auto) (45-73) % Lymph % (Auto) (20-40) % Abs Immat Gran (auto) (0.00-0.03) X10*3/uL Chloride 110 H (96-108) mmol/L Carbon Dioxide 19 L (22-29) mmol/L Random Glucose 143 H (60-115) mg/dL Calcium 7.8 L D (8.4-10.2) mg/dL ALT (0-31) U/L C-Reactive Protein (< or = 0.50) mg/dL Ur Specific [place] (1.005-1.025) Short CBC 05/18/22 05/19/22 Range/Units 10:31 06:37 WBC 10.7 16.9 H (4.8-10.8) X10*3/uL Hgb 15.1 13.3 (12.0-16.0) g/dl Hct 44.8 40.7 (37.0-47.0) % Plt Count 223 209 (160-400) X10*3/uL BMP 05/18/22 05/19/22 10:30 06:37 Sodium 144 142 Potassium 3.4 3.3 Chloride 109 H 110 H Carbon Dioxide 20 L 19 L BUN 15 16 Creatinine 0.84 0.83 Calcium 8.5 D 7.8 L D Liver Function 05/18/22 Range/Units 10:30 Total Bilirubin 0.5 (0.0-1.0) mg/dL AST 29 (5-31) U/L ALT 83 H (0-31) U/L Alkaline Phosphatase 114 (39-117) U/L Albumin 4.3 (3.5-5.0) g/dL Urine 05/18/22 Range/Units 14:53 Urine Color Yellow Urine Appearance Clear Urine pH 7.0 (5.0-9.0) Ur Specific [place] >= 1.030 H (1.005-1.025) Urine Protein Negative (Neg-Trace) mg/dL Urine Glucose (UA) Negative (Negative) mg/dL All other labs normal. Assessment and Plan (1) Exacerbation of Crohn's disease: Qualifiers: Digestive disease complication type: unspecified complication Qualified Code(s): K50.919 - Crohn's disease, unspecified, with unspecified complications Status: Acute (2) Colitis: Status: Acute (3) Acute proctitis: Status: Acute (4) Constipation: Status: Acute (5) Fibromyalgia: Status: Acute Plan At this time, there is no acute surgical pathology to mandate exploration. Would recommend official consultation with GI for input given the unusual nature of constipation in the setting of inflammatory bowel disease. Trend labs and exam. Antibiotics and bowel regime as per GI. Procedures Date of Service Date of Service: 05/19/22
[2022-05-19 08:41] LABS: Band Neutrophils Percent 24 % (3-5); Lymphocytes Percent Manual 12 % (20-40); Metamyelocytes Absolute 0.8 X10*3/uL; Metamyelocytes Percent 5 %; Monocytes Absolute Manual 0.3 X10*3/uL (0.1-1.2); Monocytes Percent Manual 2 % (2-11); Myelocytes Absolute 0.3 X10*/uL; Myelocytes Percent 2 %; Neutrophils Absolute Manual 13.4 X10*3/uL (2.0-8.3); Neutrophils Percent Manual 55 % (45-73)
[2022-05-19 08:42] LABS: Platelet Estimate NORMAL (NORMAL); Platelet Morphology Comment NORMAL; RBC Morphology NORMAL
[2022-05-19] MEDS: Topiramate 100 MG TABLET 200 MG PO ×2 (09:03→20:26)
[2022-05-19] MEDS: SUMAtriptan succinate 50 MG TABLET PO (09:03)
[2022-05-19 09:12] LABS: Lactic Acid 0.9 mmol/L (0.5-2.0)
[2022-05-19] MEDS: Acetaminophen 325 MG TABLET 650 MG PO ×2 (11:20→22:08)
--- NOTE | 2022-05-19 14:11 | P.PNIM_ITS ---
Subjective Subjective Date of Service: 05/19/22 Interval History: Seen and examined this morning Follow-up for colitis/Crohn's flare Still with persistent lower abdominal pain Has not moved bowels since admission Review of Systems Review of Systems: Yes all other systems are reviewed and are negative Constitutional Constitutional: Denies chills and Reports fever(s) Cardiovascular Cardiovascular: Denies chest pain, Denies palpitations and Denies dyspnea Respiratory Respiratory: Denies cough and Denies dyspnea Gastrointestinal Gastrointestinal: Reports abdominal pain, Denies diarrhea and Denies vomiting Endocrine Endocrine: Denies palpitations Physical Exam Vital Signs: Vital Signs: Last Vital Signs Temp 99.5 F 05/19/22 00:50 Pulse 107 H 05/19/22 08:20 Resp 22 H 05/19/22 08:20 BP 101/64 05/19/22 08:20 Pulse Ox 92 05/19/22 08:20 O2 Del Method 05/19/22 08:20 BMI result Body Mass Index 31.1 Const: Other: appears uncomfortable General: alert and awake Nutritional Appearance: overweight Orientation/consciousness: patient oriented x3 Resp: Effort & Inspection: normal respiratory effort, able to speak in complete sentences and no use of accessory muscles Cardio: Rate: tachycardic Heart sounds: S1 normal heart sound present and S2 normal heart sound present GI: Other: tender to palpation RLQ Palpation (GI): Soft to palpation Neuro: Other: grossly nonfocal General: patient oriented x3 Extrem: General: Yes no pedal edema Objective Data Active Medications Acetaminophen (Acetaminophen 325 Mg Tablet) 650 mg PO Q6H PRN PRN Reason: Pain, Mild (Pain Scale 1-3) Last Admin: 05/19/22 11:20 Dose: 650 mg Documented By: NURIS Docusate Sodium (Docusate Sodium 100 Mg Capsule) 100 mg PO DAILY PRN PRN Reason: Constipation Duloxetine HCl (Duloxetine Hcl 60 Mg Capsule.Dr) 60 mg PO BEDTIME [facility] Last Admin: 05/18/22 20:07 Dose: 60 mg Documented By: ORTIZ Enoxaparin Sodium (Enoxaparin Sodium 40 Mg/0.4 Ml Syringe) 40 mg SUBCUT Q24H [facility] Last Admin: 05/18/22 20:08 Dose: 40 mg Documented By: ORTIZ Hydrocortisone Sodium Succinate (Hydrocortisone Sod Succ/Pf 100 Mg Vial) 100 mg IVPUSH Q12H [facility] Last Admin: 05/19/22 07:24 Dose: 100 mg Documented By: NEELA Hydromorphone HCl (Hydromorphone Hcl 0.5 Mg/0.5 Ml Syringe) 0.5 mg IVPUSH Q3H PRN; Protocol PRN Reason: Pain, Severe (Pain Scale 7-10) Last Admin: 05/19/22 11:20 Dose: 0.5 mg Documented By: NURIS Piperacillin Sod/Tazobactam (Sod 3.375 gm/ Sodium Chloride) 50 mls @ 100 mls/hr IV Q6H [facility] Last Infusion: 05/19/22 13:49 Dose: 0 mls/hr Documented By: NUIRS Lactated Ringer's (Lr) 1,000 mls @ 100 mls/hr IVCONT .Q10H [facility] Last Infusion: 05/19/22 09:16 Dose: 0 mls/hr Documented By: NEELA Non-Formulary Medication (Mesalamine [Apriso]) 1.5 gm PO DAILY [facility] Ondansetron HCl (Ondansetron Hcl 4 Mg/2 Ml Vial) 4 mg IVPUSH Q8H PRN PRN Reason: Nausea and Vomiting Pharmacy Consult (Consult Rx Perform Med Rec) 1 each MISCELLANE ONCE PRN PRN Reason: Consult order Sodium Chloride (0.9 % Sodium Chloride Flush 3 Ml Syringe) 3 ml IVFLUSH QSHIFT [facility] Last Admin: 05/19/22 07:25 Dose: 3 ml Documented By: NEELA Topiramate (Topiramate 100 Mg Tablet) 200 mg PO BID [facility] Last Admin: 05/19/22 09:03 Dose: 200 mg Documented By: NEELA Labs CBC & Chem 7: 05/19/22 06:37 05/19/22 06:37 Labs: Laboratory Results - last 24 hr 05/18/22 05/19/22 05/19/22 14:53 01:53 06:37 MCV 90.0 MCH 29.4 MCHC 32.7 RDW 13.0 Plt Count 209 MPV 10.3 Immature Gran % (Auto) Cancelled Neut % (Auto) Cancelled Lymph % (Auto) Cancelled [place] % (Auto) Cancelled Eos % (Auto) Cancelled Baso % (Auto) Cancelled Lymph # (Auto) Cancelled [place] # (Auto) Cancelled Eos # (Auto) Cancelled Baso # (Auto) Cancelled Abs Immat Gran (auto) Cancelled Absolute Neuts (auto) Cancelled Absolute Nucleated RBC 0.000 Nucleated RBC % (auto) 0.0 Neutrophils % (Manual) 55 Band Neutrophils % 24 H Lymphocytes % (Manual) 12 L Monocytes % (Manual) 2 Metamyelocytes % 5 Myelocytes % 2 Abs Neuts (Manual) 13.4 H Lymphocytes # (Manual) 2.0 Monocytes # (Manual) 0.3 Metamyelocytes # 0.8 Myelocytes # 0.3 Platelet Estimate NORMAL Plt Morphology Comment NORMAL RBC Morphology NORMAL Anion Gap Estim Creat Clear Calc Estimated GFR Random Glucose Lactic Acid Calcium Urine Color Yellow Urine Appearance Clear Urine pH 7.0 Ur Specific [place] >= 1.030 H Urine Protein Negative Urine Glucose (UA) Negative Urine Ketones Negative Urine Blood Negative Urine Nitrite Negative Ur Leukocyte Esterase Negative COVID-19 ([facility]) Negative COVID-19 [employer] See Note 05/19/22 05/19/22 06:37 08:49 MCV MCH MCHC RDW Plt Count MPV Immature Gran % (Auto) Neut % (Auto) Lymph % (Auto) [place] % (Auto) Eos % (Auto) Baso % (Auto) Lymph # (Auto) [place] # (Auto) Eos # (Auto) Baso # (Auto) Abs Immat Gran (auto) Absolute Neuts (auto) Absolute Nucleated RBC Nucleated RBC % (auto) Neutrophils % (Manual) Band Neutrophils % Lymphocytes % (Manual) Monocytes % (Manual) Metamyelocytes % Myelocytes % Abs Neuts (Manual) Lymphocytes # (Manual) Monocytes # (Manual) Metamyelocytes # Myelocytes # Platelet Estimate Plt Morphology Comment RBC Morphology Anion Gap 16 Estim Creat Clear Calc 71.1 Estimated GFR > 60 Random Glucose 143 H Lactic Acid 0.9 Calcium 7.8 L D Urine Color Urine Appearance Urine pH Ur Specific [place] Urine Protein Urine Glucose (UA) Urine Ketones Urine Blood Urine Nitrite Ur Leukocyte Esterase COVID-19 ([facility]) COVID-19 Clin Com Assessment and Plan (1) Exacerbation of Crohn's disease: Status: Acute (2) Colitis: Status: Acute (3) Acute proctitis: Status: Acute (4) Constipation: Status: Acute Plan This is a 62-year-old female with history of Crohn's disease on mesalamine, fibromyalgia who presents to the emergency department with abdominal pain found to have colitis and possible partial obstruction sepsis Secondary to colitis/ proctitis, probable Crohn's flare Initially did not meet sepsis criteria. Now with tachycardia, fever 100.9. WBC trending up to 16.9, likely in part related to steroid use. Lactic acid within normal limits. Will check blood cultures - continue IV hydrocortisone 100 q.12 hours - continue IV Zosyn - GI consultation pending - NPO - pain control - continue mesalamine - seen by General surgery, no indication for surgical intervention at this time mood/fibromyalgia Continue duloxetine DVT prophylaxis -Lovenox Code status-full code attending - dr. mesa he is given severity of colitis and possible partial small-bowel obstruction patient will likely require 2 midnight stay in the hospital for IV antibiotics, systemic steroids, evaluation by both Gastroenterology as well as General surgery and pain control Quality Stroke Does the patient have a stroke diagnosis?: No VTE Prior VTE?: No VTE Risk Level:: Medical - moderate - high VTE Device Contraindication: N/A - Device Ordered VTE Drug Contraindication: N/A - Med Ordered
[2022-05-19] MEDS: Lactated Ringers 1,000 ML 100 ML IVCONT (14:45)
--- NOTE | 2022-05-19 15:27 | PM.EVENT ---
Event Note Date of Service: 05/19/22 Event Note: GI consult dictated Colitis is c/w exacerbation of crohns but infectious process is also possible. cont abx, steroids stool studies ordered. may need flex sig if no improvement.
--- NOTE | 2022-05-19 17:19 | PC.NURSE ---
No Solucortef available in [facility]. Pharmacy made aware. Awaiting medication.
[2022-05-19] MEDS: Mesalamine 400 MG CAP.DRTAB. 800 MG PO (17:29)
[2022-05-19] MEDS: Enoxaparin Sodium 40 MG/0.4 ML SYRINGE SUBCUT (17:31)
[2022-05-19] MEDS: DULoxetine HCl 60 MG CAPSULE.DR PO (20:25)
[2022-05-19] MEDS: ondansetron HCL 4 MG/2 ML VIAL IVPUSH (20:25)
[2022-05-19] MEDS: Docusate Sodium 100 MG CAPSULE PO (20:25)
[2022-05-20] VITALS (9 sets, daily range): BP systolic 103–177; BP diastolic 60–80; PULSE 93–105; RESP 16–20; TEMP 36.6–37.1; O2SAT 93–98
[2022-05-20] MEDS: Piperacillin Sodium/Tazobactam 3.375 GM in 0.9 % Sodium Chloride 50 ML IV ×3 (01:44→19:49)
[2022-05-20] MEDS: Lactated Ringers 1,000 ML 100 ML IVCONT (02:18)
--- NOTE | 2022-05-20 03:50 | CONS_ITS ---
DATE OF SERVICE: 05/19/2022 REASON FOR CONSULTATION: Colitis. HISTORY OF PRESENT ILLNESS: The patient is a pleasant 62-year-old woman known to me from prior evaluation. She has a history of Crohn disease involving the colon and was admitted to the hospital after presenting to the emergency room for the second time in 2 days with complaints of abdominal pain, constipation and abnormal CT scanning. Symptoms began approximately 1 week prior to admission, although she said for the past 2 months she has been feeling mildly unwell after a respiratory infection. She was started on prednisone last week by her primary care provider for presumptive exacerbation of her Crohn colitis and felt progressively worse as an outpatient to the point where she went on a liquid diet and still had worsening abdominal discomfort. She had nausea, but did not vomit. She has not had diarrhea, but reports mucousy stools without blood. She has also reported some low-grade fevers with a temperature of 99.9 at home. As an outpatient, she has been on mesalamine and was started on prednisone as above. Her last colonoscopy in 2018 showed no evidence of active Crohn disease. Colon biopsies including terminal ileum were within normal limits. She was evaluated in the emergency department and discharged on the on dicyclomine. Her symptoms worsened and she has not had a bowel movement since before the emergency room visit and she returned to the emergency room where she was febrile with CT scanning showing severe colitis of the sigmoid colon. She was given IV antibiotics and started on steroids. Since admission, she has felt somewhat better but still has significant complaints of lower abdominal discomfort, and has not had a bowel movement since admission. Laboratory studies in the emergency department documented a white count of 10.7, and she did have an elevated C-reactive protein at 1.61. PAST MEDICAL HISTORY: 1. Crohn colitis with hospitalization in 2017. Last colonoscopy, 2018, no active disease. 2. Gastroesophageal reflux disease. 3. Low vitamin D. 4. Carpal tunnel syndrome. 5. Iron deficiency anemia. 6. Fibromyalgia. 7. Arthritis. CURRENT MEDICATIONS: Her current medication list is reviewed in the chart. ALLERGIES: OMEPRAZOLE, TRAMADOL, AND IBUPROFEN. FAMILY HISTORY: This is reviewed with the patient and is noncontributory. SOCIAL HISTORY: There is no current tobacco, alcohol, or substance abuse. REVIEW OF SYSTEMS: SKIN: No pruritus. HEENT: Negative. CARDIOPULMONARY: No shortness of breath or chest pain. GASTROINTESTINAL: As above. GENITOURINARY: Negative. NEUROPSYCHIATRIC: Negative. PHYSICAL EXAMINATION: GENERAL: Shows a pleasant female, lying in bed. VITAL SIGNS: Reviewed in the electronic medical record and show a persistent tachycardia with a T-max yesterday of 100.9. SKIN: Anicteric. HEENT: No scleral icterus. NECK: Without lymphadenopathy or thyromegaly. LUNGS: Clear. HEART: Regular rate and rhythm. S1, S2. No murmur. ABDOMEN: Soft without focal masses. There is tenderness to palpation in both lower quadrants. There is no guarding or rebound. EXTREMITIES: Without edema. LABORATORY STUDIES: Her CT scan and blood work are reviewed. IMPRESSION: Colitis. This appears consistent with exacerbation of Crohn colitis, which is interesting considering her colonoscopy in 2019 showed no active disease. Also, possible is an infectious colitis given her underlying fever and quite sudden worsening of abdominal pain. She denies any recent travel, ill contacts, unusual ingestions, or antibiotic usage. I would recommend obtaining stool studies. I agree with treating her with antibiotics and steroids. If her symptoms do not improve, she may benefit from a lower GI tract endoscopy for further evaluation and diagnosis. This was discussed with the patient. Thanks for asking me to see her. I will follow her in the hospital with you. MD KYLIE Painting/CECILIO / [phone]
[2022-05-20] MEDS: oxyCODONE HCl ER 10 MG TAB.ER.12H PO (04:23)
[2022-05-20] MEDS: HYDROmorphone HCl 0.5 MG/0.5 ML SYRINGE IVPUSH ×4 (06:24→23:45)
[2022-05-20] MEDS: Hydrocortisone Sod Succ/PF 100 MG VIAL IVPUSH ×2 (06:25→18:08)
[2022-05-20 07:17] LABS: Hematocrit 34.5 % (37.0-47.0); Hemoglobin 11.6 g/dl (12.0-16.0); Mean Corpuscular HGB Conc 33.6 g/dl (31.0-35.0); Mean Corpuscular Volume 89.1 fL (80.0-98.0); Mean Platelet Volume 10.8 fL (9.4-12.3); Platelet Count 168 X10*3/uL (160-400); Red Blood Count 3.87 X10*6/uL (4.20-5.50); Red Cell Distribution Width 12.9 % (11.0-16.0); WBC ABN SCTR FOR CBC 1
[2022-05-20 07:46] LABS: Band Neutrophils Percent 27 % (3-5); Lymphocytes Percent Manual 3 % (20-40); Monocytes Percent Manual 2 % (2-11); Neutrophils Percent Manual 68 % (45-73)
[2022-05-20 07:48] LABS: Dohle Bodies PRESENT; Platelet Estimate NORMAL (NORMAL); Platelet Morphology Comment NORMAL; RBC Morphology NORMAL
[2022-05-20 07:49] LABS: Lymphocytes Absolute Manual 0.6 X10*3/uL (1.2-4.9); Monocytes Absolute Manual 0.4 X10*3/uL (0.1-1.2); Neutrophils Absolute Manual 17.9 X10*3/uL (2.0-8.3); White Blood Count 18.8 X10*3/uL (4.8-10.8)
[2022-05-20 07:56] LABS: Anion Gap 16 (12-20); Blood Urea Nitrogen 17 mg/dL (9-16); Carbon Dioxide 20 mmol/L (22-29); Chloride 106 mmol/L (96-108); Creatinine Clr Calc Pharmacy 80.9; Estimated Glomerular Filt Rate > 60; Glucose Random 124 mg/dL (60-115); Potassium 2.9 mmol/L (3.3-5.1); Sodium 139 mmol/L (135-145)
--- NOTE | 2022-05-20 08:06 | PM.PNGS ---
Subjective Subjective Date of Service: 05/20/22 Patient reports: still having pain Interval history: The patient reports that she feels worse than yesterday and is passing blood per rectum. She otherwise denies new complaints and notes that the current pain management regime is not working for her. Recommend contacting GI for an alternate plan since expectant management is not working to address the patient constipation and abdominal pain. Physical Exam Vital Signs: Vital Signs: Last Vital Signs Temp 97.9 F 05/20/22 03:08 Pulse 105 H 05/20/22 03:08 Resp 19 05/20/22 06:24 BP 103/60 05/20/22 03:08 Pulse Ox 93 05/20/22 03:08 O2 Del Method 05/20/22 03:08 BMI result Body Mass Index 31.1 Objective Data Active Medications Acetaminophen (Acetaminophen 325 Mg Tablet) 650 mg PO Q6H PRN PRN Reason: Pain, Mild (Pain Scale 1-3) Last Admin: 05/19/22 22:08 Dose: 650 mg Documented By: TRAV Docusate Sodium (Docusate Sodium 100 Mg Capsule) 100 mg PO DAILY PRN PRN Reason: Constipation Last Admin: 05/19/22 20:25 Dose: 100 mg Documented By: MISSY Duloxetine HCl (Duloxetine Hcl 60 Mg Capsule.Dr) 60 mg PO BEDTIME [facility] Last Admin: 05/19/22 20:25 Dose: 60 mg Documented By: MISSY Enoxaparin Sodium (Enoxaparin Sodium 40 Mg/0.4 Ml Syringe) 40 mg SUBCUT Q24H [facility] Last Admin: 05/19/22 17:31 Dose: 40 mg Documented By: RONAK Hydrocortisone Sodium Succinate (Hydrocortisone Sod Succ/Pf 100 Mg Vial) 100 mg IVPUSH Q12H [facility] Last Admin: 05/20/22 06:25 Dose: 100 mg Documented By: TRAV Hydromorphone HCl (Hydromorphone Hcl 0.5 Mg/0.5 Ml Syringe) 0.5 mg IVPUSH Q3H PRN; Protocol PRN Reason: Pain, Severe (Pain Scale 7-10) Last Admin: 05/20/22 06:24 Dose: 0.5 mg Documented By: TRAV Piperacillin Sod/Tazobactam (Sod 3.375 gm/ Sodium Chloride) 50 mls @ 100 mls/hr IV Q6H [facility] Last Infusion: 05/20/22 07:13 Dose: 100 mls/hr Documented By: TRAV Lactated Ringer's (Lr) 1,000 mls @ 100 mls/hr IVCONT .Q10H [facility] Last Admin: 05/20/22 02:18 Dose: 100 mls/hr Documented By: TRAV Potassium Chloride (Potassium Chloride/H20) 10 meq in 100 mls @ 100 mls/hr IV Q1H [facility] Stop: 05/20/22 10:14 Mesalamine (Mesalamine 400 Mg Cap.Drtab.) 800 mg PO TID [facility] Last Admin: 05/19/22 20:26 Dose: Not Given Documented By: MISSY Non-Admin Reason: Med Not Available Non-Formulary Medication (Mesalamine [Apriso]) 1.5 gm PO DAILY [facility] Ondansetron HCl (Ondansetron Hcl 4 Mg/2 Ml Vial) 4 mg IVPUSH Q8H PRN PRN Reason: Nausea and Vomiting Last Admin: 05/19/22 20:25 Dose: 4 mg Documented By: MISSY Pharmacy Consult (Consult Rx Perform Med Rec) 1 each MISCELLANE ONCE PRN PRN Reason: Consult order Potassium Chloride (Potassium Chloride Er 20 Meq Tab.Er.Prt) 40 meq PO ONCE ONE Stop: 05/20/22 08:03 Sodium Chloride (0.9 % Sodium Chloride Flush 3 Ml Syringe) 3 ml IVFLUSH QSHIFT [facility] Last Admin: 05/19/22 20:40 Dose: 3 ml Documented By: MISSY Topiramate (Topiramate 100 Mg Tablet) 200 mg PO BID [facility] Last Admin: 05/19/22 20:26 Dose: 200 mg Documented By: MISSY Labs CBC & Chem 7: 05/20/22 05:54 05/20/22 05:54 Labs: Laboratory Results - last 24 hr 05/19/22 05/19/22 05/20/22 06:37 08:49 05:54 MCV 89.1 MCH 30.0 MCHC 33.6 RDW 12.9 Plt Count 168 MPV 10.8 Immature Gran % (Auto) Cancelled Neut % (Auto) Cancelled Lymph % (Auto) Cancelled [place] % (Auto) Cancelled Eos % (Auto) Cancelled Baso % (Auto) Cancelled Lymph # (Auto) Cancelled [place] # (Auto) Cancelled Eos # (Auto) Cancelled Baso # (Auto) Cancelled Abs Immat Gran (auto) Cancelled Absolute Neuts (auto) Cancelled Absolute Nucleated RBC 0.000 Nucleated RBC % (auto) 0.0 Neutrophils % (Manual) 55 68 Band Neutrophils % 24 H 27 H Lymphocytes % (Manual) 12 L 3 L Monocytes % (Manual) 2 2 Metamyelocytes % 5 Myelocytes % 2 Abs Neuts (Manual) 13.4 H 17.9 H Lymphocytes # (Manual) 2.0 0.6 L Monocytes # (Manual) 0.3 0.4 Metamyelocytes # 0.8 Myelocytes # 0.3 Dohle Bodies PRESENT Platelet Estimate NORMAL NORMAL Plt Morphology Comment NORMAL NORMAL RBC Morphology NORMAL NORMAL Anion Gap Estim Creat Clear Calc Estimated GFR Random Glucose Lactic Acid 0.9 Calcium 05/20/22 05:54 MCV MCH MCHC RDW Plt Count MPV Immature Gran % (Auto) Neut % (Auto) Lymph % (Auto) [place] % (Auto) Eos % (Auto) Baso % (Auto) Lymph # (Auto) [place] # (Auto) Eos # (Auto) Baso # (Auto) Abs Immat Gran (auto) Absolute Neuts (auto) Absolute Nucleated RBC Nucleated RBC % (auto) Neutrophils % (Manual) Band Neutrophils % Lymphocytes % (Manual) Monocytes % (Manual) Metamyelocytes % Myelocytes % Abs Neuts (Manual) Lymphocytes # (Manual) Monocytes # (Manual) Metamyelocytes # Myelocytes # Dohle Bodies Platelet Estimate Plt Morphology Comment RBC Morphology Anion Gap 16 Estim Creat Clear Calc 80.9 Estimated GFR > 60 Random Glucose 124 H Lactic Acid Calcium 8.0 L Procedures Date of Service Date of Service: 05/20/22 Progress Note: A&P Time Spent With Patient Time: Total time spent is greater than 50% in coordination of care (as documented) at patient's floor/unit and/or counseling patient: Quality Stroke Does the patient have a stroke diagnosis?: No VTE Prior VTE?: No VTE Risk Level:: Medical - moderate - high VTE Device Contraindication: N/A - Device Ordered VTE Drug Contraindication: N/A - Med Ordered
--- NOTE | 2022-05-20 08:13 | MHC.CM.PN ---
CM met with Patient at bedside. Patient lives in a house with her /HCP/Brandon and her adult Step Son and she is functionally independent and working. Home no services is the goal and CM has initiated and will follow for dc planning. Patient has received Covid vax X4 and her PCP is Dr. Deandre Younger.
[2022-05-20 08:26] LABS: Magnesium 1.9 mg/dL (1.6-2.6)
[2022-05-20] MEDS: Potassium Chloride ER 20 MEQ TAB.ER.PRT 40 MEQ PO (08:45)
[2022-05-20] MEDS: Mesalamine 400 MG CAP.DRTAB. 800 MG PO ×2 (08:45→19:51)
[2022-05-20] MEDS: Topiramate 100 MG TABLET 200 MG PO ×2 (08:45→19:50)
[2022-05-20] MEDS: 0.9 % Sodium Chloride Flush 3 ML SYRINGE IVFLUSH ×2 (08:45→19:54)
[2022-05-20] MEDS: oxyCODONE HCl Immed Release 5 MG TABLET PO (12:52)
--- NOTE | 2022-05-20 13:19 | PM.GIPN ---
Subjective Subjective Date of Service: 05/20/22 Interval History: feels about the same as Critical Care Time (minutes): 0 Physical Exam Vital Signs: Vital Signs: Last Vital Signs Temp 97.8 F 05/20/22 11:48 Pulse 104 H 05/20/22 11:48 Resp 20 05/20/22 11:48 BP 177/80 H 05/20/22 11:48 Pulse Ox 95 05/20/22 11:48 O2 Del Method 05/20/22 11:48 BMI result Body Mass Index 31.1 Const: General: cooperative GI: Other: decreased bowel sounds, mild lower abdominal tenderness, soft Objective Data Labs CBC & Chem 7: 05/20/22 05:54 05/20/22 05:54 Microbiology Microbiology Results: Microbiology 05/19/22 08:49 Blood - Venous Blood Culture - Preliminary No growth after 24 hours. 05/19/22 08:49 Blood - Venous Blood Culture - Preliminary No growth after 24 hours. Procedures Date of Service Date of Service: 05/20/22 Progress Note: A&P Assessment and plan (1) Exacerbation of Crohn's disease: Status: Acute Assessment and Plan: I recommend the following: continue steroids, antibiotics, and mesalamine obtain stool specimens Docusate bid polyethylene glycol 17g bid, hold for diarrhea. Time Spent With Patient Time: Total time spent is greater than 50% in coordination of care (as documented) at patient's floor/unit and/or counseling patient: Quality Stroke Does the patient have a stroke diagnosis?: No VTE Prior VTE?: No VTE Risk Level:: Medical - moderate - high VTE Device Contraindication: N/A - Device Ordered VTE Drug Contraindication: N/A - Med Ordered
--- NOTE | 2022-05-20 13:47 | P.PNIM_ITS ---
Subjective Subjective Date of Service: 05/20/22 Interval History: seen and examined this morning follow up for abdominal pain/Crohn's flare Still having significant abdominal pain. No bowel movement, had 2 episodes of rectal bleeding overnight. Denies significant fever or chills at this time Review of Systems Review of Systems: Yes all other systems are reviewed and are negative Constitutional Constitutional: Denies chills and Denies fever(s) Cardiovascular Cardiovascular: Denies chest pain, Denies palpitations and Denies dyspnea Respiratory Respiratory: Denies cough and Denies dyspnea Gastrointestinal Gastrointestinal: Reports abdominal pain, Reports nausea and Denies vomiting Endocrine Endocrine: Denies palpitations Physical Exam Vital Signs: Vital Signs: Last Vital Signs Temp 97.8 F 05/20/22 11:48 Pulse 104 H 05/20/22 11:48 Resp 20 05/20/22 11:48 BP 177/80 H 05/20/22 11:48 Pulse Ox 95 05/20/22 11:48 O2 Del Method 05/20/22 11:48 BMI result Body Mass Index 31.1 Const: General: alert and awake Nutritional Appearance: overweight Orientation/consciousness: patient oriented x3 Resp: Effort & Inspection: normal respiratory effort, able to speak in complete sentences and no use of accessory muscles Cardio: Rate: tachycardic Heart sounds: S1 normal heart sound present and S2 normal heart sound present GI: Other: lower abdominal tenderness Inspection: No distended Palpation (GI): Soft to palpation Neuro: Other: grossly nonfocal General: patient oriented x3 Extrem: General: Yes no pedal edema Objective Data Active Medications Acetaminophen (Acetaminophen 325 Mg Tablet) 650 mg PO Q6H PRN PRN Reason: Pain, Mild (Pain Scale 1-3) Last Admin: 05/19/22 22:08 Dose: 650 mg Documented By: TRAV Docusate Sodium (Docusate Sodium 100 Mg Capsule) 100 mg PO BID [facility] Duloxetine HCl (Duloxetine Hcl 60 Mg Capsule.) 60 mg PO BEDTIME [facility] Last Admin: 05/19/22 20:25 Dose: 60 mg Documented By: MISSY Enoxaparin Sodium (Enoxaparin Sodium 40 Mg/0.4 Ml Syringe) 40 mg SUBCUT Q24H [facility] Last Admin: 05/19/22 17:31 Dose: 40 mg Documented By: HO.SHTYBAI Hydrocortisone Sodium Succinate (Hydrocortisone Sod Succ/Pf 100 Mg Vial) 100 mg IVPUSH Q12H [facility] Last Admin: 05/20/22 06:25 Dose: 100 mg Documented By: TRAV Hydromorphone HCl (Hydromorphone Hcl 0.5 Mg/0.5 Ml Syringe) 0.5 mg IVPUSH Q3H PRN; Protocol PRN Reason: Pain, Severe (Pain Scale 7-10) Last Admin: 05/20/22 06:24 Dose: 0.5 mg Documented By: TRAV Piperacillin Sod/Tazobactam (Sod 3.375 gm/ Sodium Chloride) 50 mls @ 100 mls/hr IV Q6H [facility] Last Admin: 05/20/22 12:25 Dose: Not Given Documented By: MARIAN Non-Admin Reason: No Access Lactated Ringer's (Lr) 1,000 mls @ 100 mls/hr IVCONT .Q10H [facility] Last Admin: 05/20/22 10:16 Dose: Not Given Documented By: MARIAN Non-Admin Reason: No Access Mesalamine (Mesalamine 400 Mg Cap.Drtab.) 800 mg PO TID [facility] Last Admin: 05/20/22 08:45 Dose: 800 mg Documented By: MARIAN Non-Formulary Medication (Mesalamine [Apriso]) 1.5 gm PO DAILY [facility] Ondansetron HCl (Ondansetron Hcl 4 Mg/2 Ml Vial) 4 mg IVPUSH Q8H PRN PRN Reason: Nausea and Vomiting Last Admin: 05/19/22 20:25 Dose: 4 mg Documented By: MISSY Pharmacy Consult (Consult Rx Perform Med Rec) 1 each MISCELLANE ONCE PRN PRN Reason: Consult order Polyethylene Glycol (Polyethylene Glycol 3350 17 Gm Powd.Pack) 17 gm PO BID [facility] Sodium Chloride (0.9 % Sodium Chloride Flush 3 Ml Syringe) 3 ml IVFLUSH QSHIFT [facility] Last Admin: 05/20/22 08:45 Dose: 3 ml Documented By: MARIAN Topiramate (Topiramate 100 Mg Tablet) 200 mg PO BID [facility] Last Admin: 05/20/22 08:45 Dose: 200 mg Documented By: MARIAN Labs CBC & Chem 7: 05/20/22 05:54 05/20/22 05:54 Labs: Laboratory Results - last 24 hr 05/20/22 05/20/22 05:54 05:54 MCV 89.1 MCH 30.0 MCHC 33.6 RDW 12.9 Plt Count 168 MPV 10.8 Immature Gran % (Auto) Cancelled Neut % (Auto) Cancelled Lymph % (Auto) Cancelled [place] % (Auto) Cancelled Eos % (Auto) Cancelled Baso % (Auto) Cancelled Lymph # (Auto) Cancelled [place] # (Auto) Cancelled Eos # (Auto) Cancelled Baso # (Auto) Cancelled Abs Immat Gran (auto) Cancelled Absolute Neuts (auto) Cancelled Absolute Nucleated RBC 0.000 Nucleated RBC % (auto) 0.0 Neutrophils % (Manual) 68 Band Neutrophils % 27 H Lymphocytes % (Manual) 3 L Monocytes % (Manual) 2 Abs Neuts (Manual) 17.9 H Lymphocytes # (Manual) 0.6 L Monocytes # (Manual) 0.4 Dohle Bodies PRESENT Platelet Estimate NORMAL Plt Morphology Comment NORMAL RBC Morphology NORMAL Anion Gap 16 Estim Creat Clear Calc 80.9 Estimated GFR > 60 Random Glucose 124 H Calcium 8.0 L Magnesium 1.9 Microbiology Microbiology Results: Microbiology 05/19/22 08:49 Blood Culture - Preliminary Blood - Venous No growth after 24 hours. 05/19/22 08:49 Blood Culture - Preliminary Blood - Venous No growth after 24 hours. Assessment and Plan (1) Hypokalemia: Status: Acute (2) Constipation: Status: Acute (3) Exacerbation of Crohn's disease: Status: Acute (4) Colitis: Status: Acute Plan This is a 62-year-old female with history of Crohn's disease on mesalamine, fibromyalgia who presents to the emergency department with abdominal pain found to have colitis and possible partial obstruction sepsis Secondary to colitis/ proctitis, probable Crohn's flare Initially did not meet sepsis criteria then developed tachycardia, fever 100.9. WBC trending up to 18.8, likely in part related to steroid use. Lactic acid within normal limits Blood cultures negative to date - continue IV hydrocortisone 100 q.12 hours - continue IV Zosyn - GI following, appreciate recs - will advance to clear liquids - pain control - continue mesalamine - seen by General surgery, no indication for surgical intervention at this time - follow-up stool studies Hypokalemia K 2.9 -will replace IV and PO -follow daily Constipation Continue bowel regimen mood/fibromyalgia Continue duloxetine DVT prophylaxis -Lovenox Code status-full code attending - dr. foss he is given severity of colitis and possible partial small-bowel obstruction patient will likely require 2 midnight stay in the hospital for IV antibiotics, systemic steroids, evaluation by both Gastroenterology as well as General surgery and pain control Quality Stroke Does the patient have a stroke diagnosis?: No VTE Prior VTE?: No VTE Risk Level:: Medical - moderate - high VTE Device Contraindication: N/A - Device Ordered VTE Drug Contraindication: N/A - Med Ordered
[2022-05-20] MEDS: Potassium Chloride/H20 10 MEQ/100 ML PIGGYBACK 100 MEQ IV ×2 (16:41→18:08)
[2022-05-20] MEDS: Enoxaparin Sodium 40 MG/0.4 ML SYRINGE SUBCUT (18:08)
[2022-05-20 19:39] LABS: Potassium 4.5 mmol/L (3.3-5.1)
[2022-05-20] MEDS: DULoxetine HCl 60 MG CAPSULE.DR PO (19:50)
[2022-05-20] MEDS: polyethylene glycoL 3350 17 GM POWD.PACK PO (19:50)
[2022-05-20] MEDS: Docusate Sodium 100 MG CAPSULE PO (19:50)
[2022-05-21] VITALS (7 sets, daily range): BP systolic 103–134; BP diastolic 58–71; PULSE 84–90; RESP 16–20; TEMP 36.6–37; O2SAT 94–97
[2022-05-21] MEDS: Piperacillin Sodium/Tazobactam 3.375 GM in 0.9 % Sodium Chloride 50 ML IV ×4 (01:17→18:12)
[2022-05-21] MEDS: HYDROmorphone HCl 0.5 MG/0.5 ML SYRINGE IVPUSH ×5 (04:54→21:24)
[2022-05-21] MEDS: Hydrocortisone Sod Succ/PF 100 MG VIAL IVPUSH ×2 (06:03→18:12)
[2022-05-21 06:51] LABS: Hematocrit 28.9 % (37.0-47.0); Hemoglobin 9.8 g/dl (12.0-16.0); Mean Corpuscular HGB Conc 33.9 g/dl (31.0-35.0); Mean Corpuscular Hemoglobin 29.9 pg (27.0-33.0); Mean Corpuscular Volume 88.1 fL (80.0-98.0); Mean Platelet Volume 10.7 fL (9.4-12.3); Platelet Count 161 X10*3/uL (160-400); Red Blood Count 3.28 X10*6/uL (4.20-5.50); White Blood Count 18.7 X10*3/uL (4.8-10.8)
[2022-05-21 07:22] LABS: Anion Gap 13 (12-20); Blood Urea Nitrogen 17 mg/dL (9-16); Calcium 7.9 mg/dL (8.4-10.2); Carbon Dioxide 21 mmol/L (22-29); Chloride 109 mmol/L (96-108); Creatinine Clr Calc Pharmacy 78.7; Estimated Glomerular Filt Rate > 60; Glucose Random 94 mg/dL (60-115); Potassium 3.1 mmol/L (3.3-5.1); Sodium 140 mmol/L (135-145)
[2022-05-21 08:31] LABS: Magnesium 2.1 mg/dL (1.6-2.6)
[2022-05-21] MEDS: Mesalamine 400 MG CAP.DRTAB. 800 MG PO ×3 (09:16→21:12)
[2022-05-21] MEDS: polyethylene glycoL 3350 17 GM POWD.PACK PO ×3 (09:16→21:15)
[2022-05-21] MEDS: Topiramate 100 MG TABLET 200 MG PO ×2 (09:17→21:13)
[2022-05-21] MEDS: Potassium Chloride ER 20 MEQ TAB.ER.PRT 40 MEQ PO ×2 (09:17→21:13)
[2022-05-21] MEDS: Docusate Sodium 100 MG CAPSULE PO ×2 (09:17→21:12)
[2022-05-21] MEDS: 0.9 % Sodium Chloride Flush 3 ML SYRINGE IVFLUSH ×2 (09:18→15:42)
--- NOTE | 2022-05-21 11:07 | PM.PNGS ---
Subjective Subjective Date of Service: 05/21/22 Patient reports: feels better and tolerating liquids well Interval history: The patient is seen with her present. She reports some improvement but notes that she still having rectal bleeding. Her diet has been advanced to clear liquids. She denies any stool per rectum Physical Exam Vital Signs: Vital Signs: Last Vital Signs Temp 98.3 F 05/21/22 07:52 Pulse 88 05/21/22 07:52 Resp 20 05/21/22 07:52 BP 103/59 L 05/21/22 07:52 Pulse Ox 95 05/21/22 07:52 O2 Del Method 05/21/22 07:52 BMI result Body Mass Index 31.1 Abdomen is obese and soft with less tenderness than yesterday. She is nontoxic and is in good spirits. She is actively tolerating liquids for breakfast. Objective Data Active Medications Acetaminophen (Acetaminophen 325 Mg Tablet) 650 mg PO Q6H PRN PRN Reason: Pain, Mild (Pain Scale 1-3) Last Admin: 05/19/22 22:08 Dose: 650 mg Documented By: TRAV Docusate Sodium (Docusate Sodium 100 Mg Capsule) 100 mg PO BID [facility] Last Admin: 05/21/22 09:17 Dose: 100 mg Documented By: MARIAN Duloxetine HCl (Duloxetine Hcl 60 Mg Capsule.) 60 mg PO BEDTIME [facility] Last Admin: 05/20/22 19:50 Dose: 60 mg Documented By: TRAV Hydrocortisone Sodium Succinate (Hydrocortisone Sod Succ/Pf 100 Mg Vial) 100 mg IVPUSH Q12H [facility] Last Admin: 05/21/22 06:03 Dose: 100 mg Documented By: TRAV Hydromorphone HCl (Hydromorphone Hcl 0.5 Mg/0.5 Ml Syringe) 0.5 mg IVPUSH Q3H PRN; Protocol PRN Reason: Pain, Severe (Pain Scale 7-10) Last Admin: 05/21/22 09:17 Dose: 0.5 mg Documented By: MARIAN Piperacillin Sod/Tazobactam (Sod 3.375 gm/ Sodium Chloride) 50 mls @ 100 mls/hr IV Q6H [facility] Last Infusion: 05/21/22 07:13 Dose: 0 mls/hr Documented By: MARIAN Mesalamine (Mesalamine 400 Mg Cap.Drtab.) 800 mg PO TID [facility] Last Admin: 05/21/22 09:16 Dose: 800 mg Documented By: MARIAN Non-Formulary Medication (Rizatriptan) 1 tab PO DAILY PRN PRN Reason: Migraine Headache Ondansetron HCl (Ondansetron Hcl 4 Mg/2 Ml Vial) 4 mg IVPUSH Q8H PRN PRN Reason: Nausea and Vomiting Last Admin: 05/19/22 20:25 Dose: 4 mg Documented By: MISSY Pharmacy Consult (Consult Rx Perform Med Rec) 1 each MISCELLANE ONCE PRN PRN Reason: Consult order Polyethylene Glycol (Polyethylene Glycol 3350 17 Gm Powd.Pack) 17 gm PO BID [facility] Last Admin: 05/21/22 09:16 Dose: 17 gm Documented By: MARIAN Potassium Chloride (Potassium Chloride Er 20 Meq Tab.Er.Prt) 40 meq PO BID [facility] Stop: 05/21/22 21:01 Last Admin: 05/21/22 09:17 Dose: 40 meq Documented By: MARIAN Sodium Chloride (0.9 % Sodium Chloride Flush 3 Ml Syringe) 3 ml IVFLUSH QSHIFT [facility] Last Admin: 05/21/22 09:18 Dose: 3 ml Documented By: MARIAN Topiramate (Topiramate 100 Mg Tablet) 200 mg PO BID [facility] Last Admin: 05/21/22 09:17 Dose: 200 mg Documented By: MARIAN Labs CBC & Chem 7: 05/21/22 06:08 05/21/22 06:07 Labs: Laboratory Results - last 24 hr 05/21/22 05/21/22 06:07 06:08 MCV 88.1 MCH 29.9 MCHC 33.9 RDW 13.0 Plt Count 161 MPV 10.7 Absolute Nucleated RBC 0.000 Nucleated RBC % (auto) 0.0 Anion Gap 13 Estim Creat Clear Calc 78.7 Estimated GFR > 60 Random Glucose 94 Calcium 7.9 L Magnesium 2.1 Microbiology Microbiology Results: Microbiology 05/19/22 08:49 Blood Culture - Preliminary Blood - Venous No growth after 48 hours. 05/19/22 08:49 Blood Culture - Preliminary Blood - Venous No growth after 48 hours. Procedures Date of Service Date of Service: 09/11/22 Progress Note: A&P Assessment and plan (1) Constipation: Status: Acute (2) Exacerbation of Crohn's disease: Status: Acute (3) Fibromyalgia: Status: Acute (4) Colitis: Status: Acute (5) Acute proctitis: Status: Acute Plan Given the lack of acute surgical pathology, will sign off. Please call again if needed. Plan as per GI Time Spent With Patient Time: Total time spent is greater than 50% in coordination of care (as documented) at patient's floor/unit and/or counseling patient: Quality Stroke Does the patient have a stroke diagnosis?: No VTE Prior VTE?: No VTE Risk Level:: Medical - moderate - high VTE Device Contraindication: N/A - Device Ordered VTE Drug Contraindication: N/A - Med Ordered
--- NOTE | 2022-05-21 11:34 | PM.GIPN ---
Subjective Subjective Date of Service: 05/21/22 Interval History: feels slightly better today no bm overnight Critical Care Time (minutes): 0 Physical Exam Vital Signs: Vital Signs: Last Vital Signs Temp 98.3 F 05/21/22 07:52 Pulse 88 05/21/22 07:52 Resp 20 05/21/22 07:52 BP 103/59 L 05/21/22 07:52 Pulse Ox 95 05/21/22 07:52 O2 Del Method 05/21/22 07:52 BMI result Body Mass Index 31.1 GI: Other: abdomen is soft with bowel sounds, mild lower tenderness Objective Data Labs CBC & Chem 7: 05/21/22 06:08 05/21/22 06:07 Labs: Laboratory Results - last 24 hr 05/20/22 05/21/22 05/21/22 19:05 06:07 06:08 WBC 18.7 H RBC 3.28 L Hgb 9.8 L Hct 28.9 L MCV 88.1 MCH 29.9 MCHC 33.9 RDW 13.0 Plt Count 161 MPV 10.7 Absolute Nucleated RBC 0.000 Nucleated RBC % (auto) 0.0 Sodium 140 Potassium 4.5 D 3.1 L D Chloride 109 H Carbon Dioxide 21 L Anion Gap 13 BUN 17 H Creatinine 0.75 Estim Creat Clear Calc 78.7 Estimated GFR > 60 Random Glucose 94 Calcium 7.9 L Magnesium 2.1 Microbiology Microbiology Results: Microbiology 05/19/22 08:49 Blood - Venous Blood Culture - Preliminary No growth after 48 hours. 05/19/22 08:49 Blood - Venous Blood Culture - Preliminary No growth after 48 hours. Procedures Date of Service Date of Service: 05/21/22 Progress Note: A&P Assessment and plan (1) Colitis: Status: Acute Assessment and Plan: continue iv abx and steroids increase miralax to tid Time Spent With Patient Time: Total time spent is greater than 50% in coordination of care (as documented) at patient's floor/unit and/or counseling patient: Quality Stroke Does the patient have a stroke diagnosis?: No VTE Prior VTE?: No VTE Risk Level:: Medical - moderate - high VTE Device Contraindication: N/A - Device Ordered VTE Drug Contraindication: N/A - Med Ordered
--- NOTE | 2022-05-21 13:39 | P.PNIM_ITS ---
Subjective Subjective Date of Service: 05/21/22 Interval History: Seen and examined this morning Follow-up for colitis/Crohn's flare Still with abdominal pain. Started on clear liquids, not eating much at this time Denies fever, chills. Denies having bowel movement although bowel movement was documented by nurse Review of Systems Review of Systems: Yes all other systems are reviewed and are negative Constitutional Constitutional: Denies chills and Denies fever(s) ENT Ears, Nose, Mouth, and Throat: Denies dizziness Cardiovascular Cardiovascular: Denies chest pain, Denies palpitations and Denies dyspnea Respiratory Respiratory: Denies cough and Denies dyspnea Gastrointestinal Gastrointestinal: Reports abdominal pain, Denies diarrhea and Denies nausea Neurologic Neurologic: Denies dizziness Endocrine Endocrine: Denies palpitations Physical Exam Vital Signs: Vital Signs: Last Vital Signs Temp 98 F 05/21/22 11:48 Pulse 86 05/21/22 11:48 Resp 20 05/21/22 11:48 BP 132/71 05/21/22 11:48 Pulse Ox 97 05/21/22 11:48 O2 Del Method 05/21/22 11:48 BMI result Body Mass Index 31.1 Const: General: cooperative, alert and awake Nutritional Appearance: overweight Orientation/consciousness: patient oriented x3 Resp: Effort & Inspection: normal respiratory effort, able to speak in complete sentences and no use of accessory muscles Cardio: Heart sounds: S1 normal heart sound present and S2 normal heart sound present GI: Other: lower abdominal tenderness Inspection: No distended Palpation (GI): Soft to palpation Neuro: Other: grossly nonfocal General: patient oriented x3 Extrem: General: Yes no pedal edema Objective Data Active Medications Acetaminophen (Acetaminophen 325 Mg Tablet) 650 mg PO Q6H PRN PRN Reason: Pain, Mild (Pain Scale 1-3) Last Admin: 05/19/22 22:08 Dose: 650 mg Documented By: TRAV Docusate Sodium (Docusate Sodium 100 Mg Capsule) 100 mg PO BID COUNT INCLUDES THE [facility] Last Admin: 05/21/22 09:17 Dose: 100 mg Documented By: MARIAN Duloxetine HCl (Duloxetine Hcl 60 Mg Capsule.) 60 mg PO BEDTIME COUNT INCLUDES THE [facility] Last Admin: 05/20/22 19:50 Dose: 60 mg Documented By: TRAV Hydrocortisone Sodium Succinate (Hydrocortisone Sod Succ/Pf 100 Mg Vial) 100 mg IVPUSH Q12H COUNT INCLUDES THE [facility] Last Admin: 05/21/22 06:03 Dose: 100 mg Documented By: TRAV Hydromorphone HCl (Hydromorphone Hcl 0.5 Mg/0.5 Ml Syringe) 0.5 mg IVPUSH Q3H PRN; Protocol PRN Reason: Pain, Severe (Pain Scale 7-10) Last Admin: 05/21/22 12:42 Dose: 0.5 mg Documented By: MARIAN Piperacillin Sod/Tazobactam (Sod 3.375 gm/ Sodium Chloride) 50 mls @ 100 mls/hr IV Q6H COUNT INCLUDES THE [facility] Last Admin: 05/21/22 12:42 Dose: 100 mls/hr Documented By: MARIAN Mesalamine (Mesalamine 400 Mg Cap.Drtab.) 800 mg PO TID COUNT INCLUDES THE [facility] Last Admin: 05/21/22 09:16 Dose: 800 mg Documented By: MARIAN Ondansetron HCl (Ondansetron Hcl 4 Mg/2 Ml Vial) 4 mg IVPUSH Q8H PRN PRN Reason: Nausea and Vomiting Last Admin: 05/19/22 20:25 Dose: 4 mg Documented By: MISSY Pharmacy Consult (Consult Rx Perform Med Rec) 1 each MISCELLANE ONCE PRN PRN Reason: Consult order Polyethylene Glycol (Polyethylene Glycol 3350 17 Gm Powd.Pack) 17 gm PO TID COUNT INCLUDES THE [facility] Potassium Chloride (Potassium Chloride Er 20 Meq Tab.Er.Prt) 40 meq PO BID COUNT INCLUDES THE [facility] Stop: 05/21/22 21:01 Last Admin: 05/21/22 09:17 Dose: 40 meq Documented By: MARIAN Sodium Chloride (0.9 % Sodium Chloride Flush 3 Ml Syringe) 3 ml IVFLUSH QSHIFT COUNT INCLUDES THE [facility] Last Admin: 05/21/22 09:18 Dose: 3 ml Documented By: MARIAN Topiramate (Topiramate 100 Mg Tablet) 200 mg PO BID COUNT INCLUDES THE [facility] Last Admin: 05/21/22 09:17 Dose: 200 mg Documented By: MARIAN Labs CBC & Chem 7: 05/21/22 06:08 05/21/22 06:07 Labs: Laboratory Results - last 24 hr 05/21/22 05/21/22 06:07 06:08 MCV 88.1 MCH 29.9 MCHC 33.9 RDW 13.0 Plt Count 161 MPV 10.7 Absolute Nucleated RBC 0.000 Nucleated RBC % (auto) 0.0 Anion Gap 13 Estim Creat Clear Calc 78.7 Estimated GFR > 60 Random Glucose 94 Calcium 7.9 L Magnesium 2.1 Microbiology Microbiology Results: Microbiology 05/19/22 08:49 Blood Culture - Preliminary Blood - Venous No growth after 48 hours. 05/19/22 08:49 Blood Culture - Preliminary Blood - Venous No growth after 48 hours. Assessment and Plan (1) Hypokalemia: Status: Acute (2) Constipation: Status: Acute (3) Exacerbation of Crohn's disease: Status: Acute (4) Colitis: Status: Acute Plan This is a 62-year-old female with history of Crohn's disease on mesalamine, fibromyalgia who presents to the emergency department with abdominal pain found to have colitis and possible partial obstruction sepsis Secondary to colitis/ proctitis, probable Crohn's flare Initially did not meet sepsis criteria then developed tachycardia, fever 100.9. WBC still elevated likely in part related to steroid use. Has persistent abdominal pain Lactic acid within normal limits Blood cultures negative to date - continue IV hydrocortisone 100 q.12 hours - continue IV Zosyn - GI following, appreciate recs - continue clear liquids - pain control - continue mesalamine - seen by General surgery, no indication for surgical intervention at this time - follow-up stool studies, uncollected thus far Hypokalemia K 3.1 replace and follow Constipation Continue bowel regimen, miralax increased mood/fibromyalgia Continue duloxetine DVT prophylaxis -Lovenox Code status-full code Requires ongoing inpatient hospitalization due to sepsis/colitis/Crohn's flare in need for IV antibiotics, IV steroids and IV narcotics for adequate pain control Quality Stroke Does the patient have a stroke diagnosis?: No VTE Prior VTE?: No VTE Risk Level:: Medical - moderate - high VTE Device Contraindication: N/A - Device Ordered VTE Drug Contraindication: N/A - Med Ordered
[2022-05-21] MEDS: Lactated Ringers 1,000 ML 100 ML IVCONT (15:42)
[2022-05-21] MEDS: DULoxetine HCl 60 MG CAPSULE.DR PO (21:15)
[2022-05-22] VITALS: BP 119/59; PULSE 79; RESP 18; TEMP 36.1; O2SAT 93
[2022-05-22] MEDS: 0.9 % Sodium Chloride Flush 3 ML SYRINGE IVFLUSH ×4 (00:06→22:01)
[2022-05-22] MEDS: Piperacillin Sodium/Tazobactam 3.375 GM in 0.9 % Sodium Chloride 50 ML IV ×4 (00:06→18:32)
[2022-05-22] MEDS: HYDROmorphone HCl 0.5 MG/0.5 ML SYRINGE IVPUSH ×6 (00:17→16:41)
[2022-05-22] MEDS: Lactated Ringers 1,000 ML 100 ML IVCONT ×3 (00:51→21:03)
[2022-05-22 03:00] VITALS: BP 126/61; PULSE 71; RESP 18; TEMP 36.2; O2SAT 97
[2022-05-22] MEDS: ondansetron HCL 4 MG/2 ML VIAL IVPUSH ×2 (03:23→17:45)
[2022-05-22] MEDS: Hydrocortisone Sod Succ/PF 100 MG VIAL IVPUSH ×2 (06:10→18:32)
[2022-05-22 06:46] LABS: Hematocrit 32.3 % (37.0-47.0); Hemoglobin 10.8 g/dl (12.0-16.0); Mean Corpuscular HGB Conc 33.4 g/dl (31.0-35.0); Mean Corpuscular Hemoglobin 29.4 pg (27.0-33.0); Mean Platelet Volume 10.4 fL (9.4-12.3); Platelet Count 185 X10*3/uL (160-400); Red Blood Count 3.67 X10*6/uL (4.20-5.50); Red Cell Distribution Width 13.2 % (11.0-16.0); White Blood Count 18.4 X10*3/uL (4.8-10.8)
[2022-05-22 07:25] LABS: Alanine Aminotransferase 47 U/L (0-31); Albumin Level 3.1 g/dL (3.5-5.0); Alkaline Phosphatase 107 U/L (39-117); Anion Gap 14 (12-20); Aspartate Amino Transferase 21 U/L (5-31); Bilirubin Direct 0.2 mg/dL (0.0-0.5); Bilirubin Total 0.4 mg/dL (0.0-1.0); Blood Urea Nitrogen 15 mg/dL (9-16); Calcium 8.1 mg/dL (8.4-10.2); Carbon Dioxide 21 mmol/L (22-29); Chloride 111 mmol/L (96-108); Creatinine Clr Calc Pharmacy 86.9; Estimated Glomerular Filt Rate > 60; Glucose Random 86 mg/dL (60-115); Potassium 3.3 mmol/L (3.3-5.1); Sodium 143 mmol/L (135-145); Total Protein 5.4 g/dL (6.5-8.0)
[2022-05-22] MEDS: Topiramate 100 MG TABLET 200 MG PO ×2 (07:29→22:01)
[2022-05-22] MEDS: Mesalamine 400 MG CAP.DRTAB. 800 MG PO ×3 (07:29→22:00)
[2022-05-22] MEDS: Docusate Sodium 100 MG CAPSULE PO ×2 (07:29→22:00)
[2022-05-22] MEDS: polyethylene glycoL 3350 17 GM POWD.PACK PO ×2 (07:30→22:01)
[2022-05-22 07:43] VITALS: BP 122/65; PULSE 93; RESP 18; TEMP 36.6; O2SAT 94
--- NOTE | 2022-05-22 10:18 | P.PNIM_ITS ---
Subjective Subjective Date of Service: 05/22/22 Interval History: Seen and examined this morning Follow-up for colitis/Crohn's flare Still with abdominal pain. Started on clear liquids, not eating much at this time Denies fever, chills. Denies having bowel movement although bowel movement was documented by nurse Review of Systems Review of Systems: Yes all other systems are reviewed and are negative Constitutional Constitutional: Denies chills and Denies fever(s) ENT Ears, Nose, Mouth, and Throat: Denies dizziness Cardiovascular Cardiovascular: Denies chest pain, Denies palpitations and Denies dyspnea Respiratory Respiratory: Denies cough and Denies dyspnea Gastrointestinal Gastrointestinal: Reports abdominal pain, Denies diarrhea and Denies nausea Neurologic Neurologic: Denies dizziness Endocrine Endocrine: Denies palpitations Physical Exam Vital Signs: Vital Signs: Last Vital Signs Temp 97.9 F 05/22/22 07:43 Pulse 93 05/22/22 07:43 Resp 18 05/22/22 07:43 BP 122/65 05/22/22 07:43 Pulse Ox 94 05/22/22 07:43 O2 Del Method 05/22/22 07:43 BMI result Body Mass Index 31.1 Appearing in no acute distress lung sounds are clear to auscultation heart regular rate rhythm, clear S1, S2 positive bowel sounds, tender lower abd neuro patient is alert x3, no focal deficits Objective Data Active Medications Acetaminophen (Acetaminophen 325 Mg Tablet) 650 mg PO Q6H PRN PRN Reason: Pain, Mild (Pain Scale 1-3) Last Admin: 05/19/22 22:08 Dose: 650 mg Documented By: TRAV Docusate Sodium (Docusate Sodium 100 Mg Capsule) 100 mg PO BID [facility] Last Admin: 05/22/22 07:29 Dose: 100 mg Documented By: KAMILA Duloxetine HCl (Duloxetine Hcl 60 Mg Capsule.Dr) 60 mg PO BEDTIME [facility] Last Admin: 05/21/22 21:15 Dose: 60 mg Documented By: AKIRA Hydrocortisone Sodium Succinate (Hydrocortisone Sod Succ/Pf 100 Mg Vial) 100 mg IVPUSH Q12H [facility] Last Admin: 05/22/22 06:10 Dose: 100 mg Documented By: JONATHAN Hydromorphone HCl (Hydromorphone Hcl 0.5 Mg/0.5 Ml Syringe) 0.5 mg IVPUSH Q3H PRN; Protocol PRN Reason: Pain, Severe (Pain Scale 7-10) Last Admin: 05/22/22 06:19 Dose: 0.5 mg Documented By: JONATHAN Piperacillin Sod/Tazobactam (Sod 3.375 gm/ Sodium Chloride) 50 mls @ 100 mls/hr IV Q6H [facility] Last Infusion: 05/22/22 06:43 Dose: 0 mls/hr Documented By: JONATHAN Lactated Ringer's (Lr) 1,000 mls @ 100 mls/hr IVCONT .Q10H [facility] Last Admin: 05/22/22 00:51 Dose: 100 mls/hr Documented By: JONATHAN Mesalamine (Mesalamine 400 Mg Cap.Drtab.) 800 mg PO TID [facility] Last Admin: 05/22/22 07:29 Dose: 800 mg Documented By: KAMILA Ondansetron HCl (Ondansetron Hcl 4 Mg/2 Ml Vial) 4 mg IVPUSH Q8H PRN PRN Reason: Nausea and Vomiting Last Admin: 05/22/22 03:23 Dose: 4 mg Documented By: JONATHAN Pharmacy Consult (Consult Rx Perform Med Rec) 1 each MISCELLANE ONCE PRN PRN Reason: Consult order Polyethylene Glycol (Polyethylene Glycol 3350 17 Gm Powd.Pack) 17 gm PO TID [facility] Last Admin: 05/22/22 07:30 Dose: 17 gm Documented By: KAMILA Sodium Chloride (0.9 % Sodium Chloride Flush 3 Ml Syringe) 3 ml IVFLUSH QSHIFT [facility] Last Admin: 05/22/22 07:32 Dose: 3 ml Documented By: KAMILA Topiramate (Topiramate 100 Mg Tablet) 200 mg PO BID [facility] Last Admin: 05/22/22 07:29 Dose: 200 mg Documented By: KAMILA Labs CBC & Chem 7: 05/22/22 06:04 05/22/22 06:04 Labs: Laboratory Results - last 24 hr 05/22/22 05/22/22 06:04 06:04 MCV 88.0 MCH 29.4 MCHC 33.4 RDW 13.2 Plt Count 185 MPV 10.4 Absolute Nucleated RBC 0.000 Nucleated RBC % (auto) 0.0 Anion Gap 14 Estim Creat Clear Calc 86.9 Estimated GFR > 60 Random Glucose 86 Calcium 8.1 L Magnesium 2.0 Total Bilirubin 0.4 Direct Bilirubin 0.2 AST 21 ALT 47 H Alkaline Phosphatase 107 Total Protein 5.4 L D Albumin 3.1 L D Microbiology Microbiology Results: Microbiology 05/19/22 08:49 Blood Culture - Preliminary Blood - Venous No growth after 48 hours. 05/19/22 08:49 Blood Culture - Preliminary Blood - Venous No growth after 48 hours. Assessment and Plan (1) Hypokalemia: Status: Acute (2) Constipation: Status: Acute (3) Exacerbation of Crohn's disease: Status: Acute (4) Colitis: Status: Acute Plan This is a 62-year-old female with history of Crohn's disease on mesalamine, fibromyalgia who presents to the emergency department with abdominal pain found to have colitis and possible partial obstruction Sepsis Secondary to colitis/ proctitis, probable Crohn's flare. Sepsis has resolved Fever, tachycardia, leukocytosis, normal lactic acid Blood cultures negative to date Continue IV hydrocortisone 100 mg every 12 hours Continue IV Zosyn Continue clear liquids although patient reports only be able to drink a little bit of water Pain control Continue home mesalamine Seen and evaluated by Gastroenterology, possible flex sig if symptoms do not improve, will discuss with GI Stool studies remain on collected Hypokalemia Resolved replace and follow Constipation. Continue bowel regimen, miralax increased mood/fibromyalgia Continue duloxetine DVT prophylaxis -Lovenox Code status-full code Attending Dr. Ying Requires ongoing inpatient hospitalization due to sepsis/colitis/Crohn's flare in need for IV antibiotics, IV steroids and IV narcotics for adequate pain control Quality Stroke Does the patient have a stroke diagnosis?: No VTE Prior VTE?: No VTE Risk Level:: Medical - moderate - high VTE Device Contraindication: N/A - Device Ordered VTE Drug Contraindication: N/A - Med Ordered
[2022-05-22 11:35] VITALS: BP 145/70; PULSE 83; RESP 16; TEMP 37; O2SAT 94
--- NOTE | 2022-05-22 12:08 | MHC.CM.PN ---
PER MD ROUNDS, PT NOT YET MEDICALLY CLEARED FOR DC, STILL REQUIRING IV MEDS DC PLAN REMAINS HOME WITH NO SERVICES FAMILY TO TRANSPORT
--- NOTE | 2022-05-22 12:11 | PM.GIPN ---
Subjective Subjective Date of Service: 05/22/22 Interval History: Ju is feeling worse Critical Care Time (minutes): 0 Physical Exam Vital Signs: Vital Signs: Last Vital Signs Temp 97.7 F 05/22/22 20:00 Pulse 93 05/22/22 20:00 Resp 18 05/22/22 20:00 BP 150/73 H 05/22/22 20:00 Pulse Ox 96 05/22/22 20:00 O2 Del Method 05/22/22 20:00 BMI result Body Mass Index 31.1 GI: Other: abdomen is soft with lower quadrant tenderness Objective Data Labs CBC & Chem 7: 05/22/22 06:04 05/22/22 06:04 Labs: Laboratory Results - last 24 hr 05/22/22 05/22/22 06:04 06:04 WBC 18.4 H RBC 3.67 L Hgb 10.8 L Hct 32.3 L MCV 88.0 MCH 29.4 MCHC 33.4 RDW 13.2 Plt Count 185 MPV 10.4 Absolute Nucleated RBC 0.000 Nucleated RBC % (auto) 0.0 Sodium 143 Potassium 3.3 Chloride 111 H Carbon Dioxide 21 L Anion Gap 14 BUN 15 Creatinine 0.68 Estim Creat Clear Calc 86.9 Estimated GFR > 60 Random Glucose 86 Calcium 8.1 L Magnesium 2.0 Total Bilirubin 0.4 Direct Bilirubin 0.2 AST 21 ALT 47 H Alkaline Phosphatase 107 Total Protein 5.4 L D Albumin 3.1 L D Microbiology Microbiology Results: Microbiology 05/19/22 08:49 Blood - Venous Blood Culture - Preliminary No growth after 48 hours. 05/19/22 08:49 Blood - Venous Blood Culture - Preliminary No growth after 48 hours. Procedures Date of Service Date of Service: 05/22/22 Progress Note: A&P Assessment and plan (1) Colitis: Status: Acute Assessment and Plan: We discussed lower gi endoscopy as laxatives, stool softeners, steroids and antibiotics for 3 days have not made significant improvement. She is aware of risks and benefits and agrees to proceed. Bowel prep as tolerated. Time Spent With Patient Time: Total time spent is greater than 50% in coordination of care (as documented) at patient's floor/unit and/or counseling patient: Quality Stroke Does the patient have a stroke diagnosis?: No VTE Prior VTE?: No VTE Risk Level:: Medical - moderate - high VTE Device Contraindication: N/A - Device Ordered VTE Drug Contraindication: N/A - Med Ordered
[2022-05-22] MEDS: PEG 3350/Na Sulf,Bicarb,Cl/KCL 4,000 ML SOLN.RECON 4000 ML PO (15:39)
[2022-05-22] MEDS: HYDROmorphone HCl 0.5 MG/0.5 ML SYRINGE 1 MG IVPUSH ×2 (18:31→22:01)
[2022-05-22 20:00] VITALS: BP 150/73; PULSE 93; RESP 18; TEMP 36.5; O2SAT 96
[2022-05-22] MEDS: DULoxetine HCl 60 MG CAPSULE.DR PO (22:00)
[2022-05-23] VITALS (51 sets, daily range): BP systolic 66–172; BP diastolic 26–125; PULSE 74–160; RESP 13–35; TEMP 35–37.3; O2SAT 90–98
[2022-05-23] MEDS: Piperacillin Sodium/Tazobactam 3.375 GM in 0.9 % Sodium Chloride 50 ML IV ×2 (01:05→06:12)
[2022-05-23] MEDS: HYDROmorphone HCl 0.5 MG/0.5 ML SYRINGE 1 MG IVPUSH ×3 (01:05→09:07)
[2022-05-23] MEDS: Hydrocortisone Sod Succ/PF 100 MG VIAL IVPUSH (06:12)
[2022-05-23] MEDS: Lactated Ringers 1,000 ML 100 ML IVCONT ×2 (06:30→09:21)
[2022-05-23] MEDS: Mesalamine 400 MG CAP.DRTAB. 800 MG PO (09:06)
[2022-05-23] MEDS: Topiramate 100 MG TABLET 200 MG PO (09:06)
[2022-05-23] MEDS: 0.9 % Sodium Chloride Flush 3 ML SYRINGE IVFLUSH ×2 (09:09→18:30)
--- NOTE | 2022-05-23 12:18 | HO.ANESPROP2 ---
HPI - Anesthesia Eval Consult details Narrative: Crohns disease PMFSH Active Problems Active Problems: All Active Problems (Updated 05/20/22 @ 13:58 by RUSSELL Mabry) Hypokalemia (Acute) Constipation (Acute) Fibromyalgia (Acute) Exacerbation of Crohn's disease (Acute) Colitis (Acute) Acute proctitis (Acute) Viral illness (Acute) Hives (Acute) Past Medical History Medical History (Updated 05/20/22 @ 13:58 by RUSSELL Mabry) Arthritis Back pain Carpal tunnel syndrome COVID-19 vaccine series completed Crohn's disease Environmental allergies Fibromyalgia GERD (gastroesophageal reflux disease) Herniated cervical disc Hx of migraines Iron deficiency anemia PONV (postoperative nausea and vomiting) Thoracic disc herniation Vitamin D deficiency Functional capacity: independent ambulation Family History Family history of problems with anesthesia: No Surgical History Surgical History History of esophagogastroduodenoscopy (EGD) History of surgery History of tonsillectomy History of tubal ligation Hx of cholecystectomy Hx of colonoscopy Hx of fusion of cervical spine Hx of shoulder surgery History of Problems with Anesthesia: No Social History Social History Household Members: Spouse Housing: House Are you a primary senior caregiver to a significant other at home: No Do you presently have visiting nurse or other home services: No Alcohol intake: never Patient Tobacco Use Status: Never used Tobacco Tobacco use type: Cigarette Advance Directives Date on File: 06/23/20 service: No Current occupational status: employed Meds Allergies Allergy/AdvReac Type Severity Reaction Status Date / Time omeprazole [OMEPRAZOLE] Allergy Severe N/V Verified 01/29/22 15:10 tramadol [From Ultram] Allergy Intermediate ITCHING Verified 01/29/22 15:10 ibuprofen [From Motrin] Allergy Unknown Verified 05/18/22 09:23 Active Medications: Current Medications Acetaminophen (Acetaminophen 325 Mg Tablet) 650 mg PO Q6H PRN PRN Reason: Pain, Mild (Pain Scale 1-3) Last Admin: 05/19/22 22:08 Dose: 650 mg Docusate Sodium (Docusate Sodium 100 Mg Capsule) 100 mg PO BID [facility] Last Admin: 05/23/22 09:07 Dose: Not Given Duloxetine HCl (Duloxetine Hcl 60 Mg Capsule.Dr) 60 mg PO BEDTIME [facility] Last Admin: 05/22/22 22:00 Dose: 60 mg Hydrocortisone Sodium Succinate (Hydrocortisone Sod Succ/Pf 100 Mg Vial) 100 mg IVPUSH Q12H [facility] Last Admin: 05/23/22 06:12 Dose: 100 mg Hydromorphone HCl (Hydromorphone Hcl 0.5 Mg/0.5 Ml Syringe) 1 mg IVPUSH Q2H PRN; Protocol PRN Reason: Pain, Severe (Pain Scale 7-10) Last Admin: 05/23/22 09:07 Dose: 1 mg Piperacillin Sod/Tazobactam (Sod 3.375 gm/ Sodium Chloride) 50 mls @ 100 mls/hr IV Q6H [facility] Last Infusion: 05/23/22 07:00 Dose: Infused Lactated Ringer's (Lr) 1,000 mls @ 100 mls/hr IVCONT .Q10H [facility] Last Admin: 05/23/22 09:21 Dose: 100 mls/hr Mesalamine (Mesalamine 400 Mg Cap.Drtab.) 800 mg PO TID [facility] Last Admin: 05/23/22 09:06 Dose: 800 mg Ondansetron HCl (Ondansetron Hcl 4 Mg/2 Ml Vial) 4 mg IVPUSH Q8H PRN PRN Reason: Nausea and Vomiting Last Admin: 05/22/22 17:45 Dose: 4 mg Pharmacy Consult (Consult Rx Perform Med Rec) 1 each MISCELLANE ONCE PRN PRN Reason: Consult order Polyethylene Glycol (Polyethylene Glycol 3350 17 Gm Powd.Pack) 17 gm PO TID [facility] Last Admin: 05/23/22 09:07 Dose: Not Given Sodium Chloride (0.9 % Sodium Chloride Flush 3 Ml Syringe) 3 ml IVFLUSH QSHIFT [facility] Last Admin: 05/23/22 09:09 Dose: 3 ml Topiramate (Topiramate 100 Mg Tablet) 200 mg PO BID [facility] Last Admin: 05/23/22 09:06 Dose: 200 mg Home Medications Medication Instructions Recorded Confirmed Last Taken Type mesalamine 0.375 gram 1.5 g PO QAM 10/21/20 05/18/22 05/17/22 History capsule,extended release 24 hr (Apriso) methocarbamol 750 mg tablet 750 mg PO TID 10/21/20 05/18/22 05/17/22 History multivit with 1 tab PO DAILY 10/21/20 05/18/22 05/17/22 History clzecuiq-vhgk-TI-lutein 8 mg iron-400 mcg-300 mcg tablet (Centrum Silver Women) pantoprazole 40 mg tablet,delayed 40 mg PO BEDTIME 10/21/20 05/18/22 05/17/22 History release (Protonix) loratadine 10 mg tablet (Claritin) 10 mg PO DAILY 06/24/21 05/18/22 05/17/22 History duloxetine 60 mg capsule,delayed 1 cap PO BEDTIME 05/18/22 05/18/22 05/17/22 History release fremanezumab-vfrm 225 mg/1.5 mL 1.5 mg subcut Q30D 05/18/22 05/18/22 04/29/22 History subcutaneous syringe (Ajovy Syringe) ondansetron 8 mg disintegrating 1 tab PO DAILY PRN Nausea 05/18/22 05/18/22 Unknown History tablet rizatriptan 10 mg tablet 1 tab PO DAILY PRN Migraine 05/18/22 05/18/22 Unknown History Headache topiramate 100 mg tablet 2 tab PO BID 05/18/22 05/18/22 05/17/22 History Exam Exam Date and Time: May 23, 2022 121 Height,Weight and Vital Signs: Height 5 ft 3 in Weight 79.8 kg Last Vital Signs Temp 97.6 F 05/23/22 10:35 Pulse 86 05/23/22 10:35 Resp 18 05/23/22 10:35 BP 149/77 H 05/23/22 10:35 Pulse Ox 95 05/23/22 10:35 O2 Del Method 05/23/22 10:35 Pertinent Lab Results Pertinent Lab Results: Laboratory Tests 05/18/22 05/18/22 05/18/22 10:30 10:31 11:28 WBC 10.7 RBC 5.01 Hgb 15.1 Hct 44.8 MCV 89.4 MCH 30.1 MCHC 33.7 RDW 12.5 Plt Count 223 MPV 10.4 Immature Gran % (Auto) 0.6 H Neut % (Auto) 75.2 H Lymph % (Auto) 19.9 L [place] % (Auto) 2.8 Eos % (Auto) 1.1 Baso % (Auto) 0.4 Lymph # (Auto) 2.1 [place] # (Auto) 0.3 Eos # (Auto) 0.1 Baso # (Auto) 0.0 Abs Immat Gran (auto) 0.06 H Absolute Neuts (auto) 8.0 Absolute Nucleated RBC 0.000 Nucleated RBC % (auto) 0.0 Neutrophils % (Manual) Band Neutrophils % Lymphocytes % (Manual) Monocytes % (Manual) Metamyelocytes % Myelocytes % Abs Neuts (Manual) Lymphocytes # (Manual) Monocytes # (Manual) Metamyelocytes # Myelocytes # Dohle Bodies Platelet Estimate Plt Morphology Comment RBC Morphology ESR 8 Sodium 144 Potassium 3.4 Chloride 109 H Carbon Dioxide 20 L Anion Gap 18 BUN 15 Creatinine 0.84 Estim Creat Clear Calc 70.3 Estimated GFR > 60 Random Glucose 129 H Lactic Acid Calcium 8.5 D Magnesium Total Bilirubin 0.5 Direct Bilirubin AST 29 ALT 83 H Alkaline Phosphatase 114 C-Reactive Protein 1.61 H Total Protein 7.1 Albumin 4.3 Lipase 16 Urine Color Urine Appearance Urine pH Ur Specific [place] Urine Protein Urine Glucose (UA) Urine Ketones Urine Blood Urine Nitrite Ur Leukocyte Esterase COVID-19 ([facility]) COVID-19 Clin Com 05/18/22 05/19/22 05/19/22 14:53 01:53 06:37 WBC 16.9 H RBC 4.52 Hgb 13.3 Hct 40.7 MCV 90.0 MCH 29.4 MCHC 32.7 RDW 13.0 Plt Count 209 MPV 10.3 Immature Gran % (Auto) Cancelled Neut % (Auto) Cancelled Lymph % (Auto) Cancelled [place] % (Auto) Cancelled Eos % (Auto) Cancelled Baso % (Auto) Cancelled Lymph # (Auto) Cancelled [place] # (Auto) Cancelled Eos # (Auto) Cancelled Baso # (Auto) Cancelled Abs Immat Gran (auto) Cancelled Absolute Neuts (auto) Cancelled Absolute Nucleated RBC 0.000 Nucleated RBC % (auto) 0.0 Neutrophils % (Manual) 55 Band Neutrophils % 24 H Lymphocytes % (Manual) 12 L Monocytes % (Manual) 2 Metamyelocytes % 5 Myelocytes % 2 Abs Neuts (Manual) 13.4 H Lymphocytes # (Manual) 2.0 Monocytes # (Manual) 0.3 Metamyelocytes # 0.8 Myelocytes # 0.3 Dohle Bodies Platelet Estimate NORMAL Plt Morphology Comment NORMAL RBC Morphology NORMAL ESR Sodium Potassium Chloride Carbon Dioxide Anion Gap BUN Creatinine Estim Creat Clear Calc Estimated GFR Random Glucose Lactic Acid Calcium Magnesium Total Bilirubin Direct Bilirubin AST ALT Alkaline Phosphatase C-Reactive Protein Total Protein Albumin Lipase Urine Color Yellow Urine Appearance Clear Urine pH 7.0 Ur Specific [place] >= 1.030 H Urine Protein Negative Urine Glucose (UA) Negative Urine Ketones Negative Urine Blood Negative Urine Nitrite Negative Ur Leukocyte Esterase Negative COVID-19 ([facility]) Negative COVID-19 Clin Com See Note 05/19/22 05/19/22 05/20/22 06:37 08:49 05:54 WBC 18.8 H RBC 3.87 L Hgb 11.6 L Hct 34.5 L MCV 89.1 MCH 30.0 MCHC 33.6 RDW 12.9 Plt Count 168 MPV 10.8 Immature Gran % (Auto) Cancelled Neut % (Auto) Cancelled Lymph % (Auto) Cancelled [place] % (Auto) Cancelled Eos % (Auto) Cancelled Baso % (Auto) Cancelled Lymph # (Auto) Cancelled [place] # (Auto) Cancelled Eos # (Auto) Cancelled Baso # (Auto) Cancelled Abs Immat Gran (auto) Cancelled Absolute Neuts (auto) Cancelled Absolute Nucleated RBC 0.000 Nucleated RBC % (auto) 0.0 Neutrophils % (Manual) 68 Band Neutrophils % 27 H Lymphocytes % (Manual) 3 L Monocytes % (Manual) 2 Metamyelocytes % Myelocytes % Abs Neuts (Manual) 17.9 H Lymphocytes # (Manual) 0.6 L Monocytes # (Manual) 0.4 Metamyelocytes # Myelocytes # Dohle Bodies PRESENT Platelet Estimate NORMAL Plt Morphology Comment NORMAL RBC Morphology NORMAL ESR Sodium 142 Potassium 3.3 Chloride 110 H Carbon Dioxide 19 L Anion Gap 16 BUN 16 Creatinine 0.83 Estim Creat Clear Calc 71.1 Estimated GFR > 60 Random Glucose 143 H Lactic Acid 0.9 Calcium 7.8 L D Magnesium Total Bilirubin Direct Bilirubin AST ALT Alkaline Phosphatase C-Reactive Protein Total Protein Albumin Lipase Urine Color Urine Appearance Urine pH Ur Specific [place] Urine Protein Urine Glucose (UA) Urine Ketones Urine Blood Urine Nitrite Ur Leukocyte Esterase COVID-19 ([facility]) COVID-19 Clin Com 05/20/22 05/20/22 05/21/22 05:54 19:05 06:07 WBC RBC Hgb Hct MCV MCH MCHC RDW Plt Count MPV Immature Gran % (Auto) Neut % (Auto) Lymph % (Auto) [place] % (Auto) Eos % (Auto) Baso % (Auto) Lymph # (Auto) [place] # (Auto) Eos # (Auto) Baso # (Auto) Abs Immat Gran (auto) Absolute Neuts (auto) Absolute Nucleated RBC Nucleated RBC % (auto) Neutrophils % (Manual) Band Neutrophils % Lymphocytes % (Manual) Monocytes % (Manual) Metamyelocytes % Myelocytes % Abs Neuts (Manual) Lymphocytes # (Manual) Monocytes # (Manual) Metamyelocytes # Myelocytes # Dohle Bodies Platelet Estimate Plt Morphology Comment RBC Morphology ESR Sodium 139 140 Potassium 2.9 L 4.5 D 3.1 L D Chloride 106 109 H Carbon Dioxide 20 L 21 L Anion Gap 16 13 BUN 17 H 17 H Creatinine 0.73 0.75 Estim Creat Clear Calc 80.9 78.7 Estimated GFR > 60 > 60 Random Glucose 124 H 94 Lactic Acid Calcium 8.0 L 7.9 L Magnesium 1.9 2.1 Total Bilirubin Direct Bilirubin AST ALT Alkaline Phosphatase C-Reactive Protein Total Protein Albumin Lipase Urine Color Urine Appearance Urine pH Ur Specific [place] Urine Protein Urine Glucose (UA) Urine Ketones Urine Blood Urine Nitrite Ur Leukocyte Esterase COVID-19 ([facility]) COVID-19 Clin Com 05/21/22 05/22/22 05/22/22 06:08 06:04 06:04 WBC 18.7 H 18.4 H RBC 3.28 L 3.67 L Hgb 9.8 L 10.8 L Hct 28.9 L 32.3 L MCV 88.1 88.0 MCH 29.9 29.4 MCHC 33.9 33.4 RDW 13.0 13.2 Plt Count 161 185 MPV 10.7 10.4 Immature Gran % (Auto) Neut % (Auto) Lymph % (Auto) [place] % (Auto) Eos % (Auto) Baso % (Auto) Lymph # (Auto) [place] # (Auto) Eos # (Auto) Baso # (Auto) Abs Immat Gran (auto) Absolute Neuts (auto) Absolute Nucleated RBC 0.000 0.000 Nucleated RBC % (auto) 0.0 0.0 Neutrophils % (Manual) Band Neutrophils % Lymphocytes % (Manual) Monocytes % (Manual) Metamyelocytes % Myelocytes % Abs Neuts (Manual) Lymphocytes # (Manual) Monocytes # (Manual) Metamyelocytes # Myelocytes # Dohle Bodies Platelet Estimate Plt Morphology Comment RBC Morphology ESR Sodium 143 Potassium 3.3 Chloride 111 H Carbon Dioxide 21 L Anion Gap 14 BUN 15 Creatinine 0.68 Estim Creat Clear Calc 86.9 Estimated GFR > 60 Random Glucose 86 Lactic Acid Calcium 8.1 L Magnesium 2.0 Total Bilirubin 0.4 Direct Bilirubin 0.2 AST 21 ALT 47 H Alkaline Phosphatase 107 C-Reactive Protein Total Protein 5.4 L D Albumin 3.1 L D Lipase Urine Color Urine Appearance Urine pH Ur Specific [place] Urine Protein Urine Glucose (UA) Urine Ketones Urine Blood Urine Nitrite Ur Leukocyte Esterase COVID-19 ([facility]) COVID-19 Clin Com Airway Mallampati Class: II TM Dist: >3cm Neck ROM: Full Loose/Missing/Broken Teeth: No Heart: [id number] Lungs: cta b/l Assessment and Plan Assessment Anesthesia Assessment: Anesthesia Plan Discussed and Chart Reviewed Final Anesthetic Review Family History of Problems with Anesthesia: No History of Problems with Anesthesia: No NPO: Yes ASA Class: III Final Preanesthetic Review: No Changes in Pt Med Stat, Meds/Allgs Chart Reviewed, Consent Obtained/Reviewed and Anes Risks/Benef Reviewed Patient Risk: Intermediate Procedure Risk: Low Assessment/Block/Sedation in SS: Assess/Block/Sedation-SS Anesthetic Plan Anesthetic Plan: MAC: and Agree w/ Assess. and Plan Disposition: Standard PACU
--- NOTE | 2022-05-23 12:25 | MHC.SHP ---
Pre-Procedural Eval Section A Date of Service: 05/23/22 The patient is an INPATIENT: Yes Changes since office visit: No Cold of Flu in the past 2 weeks, No New Medical Problems, No Changes in Medication and No Patient answered all questions The History & Physical has been completed within 30 days and I have reviewed it.: Yes Section B Chief Complaint: Abdominal Pain Allergies: Allergies Allergy/AdvReac Type Severity Reaction Status Date / Time omeprazole [OMEPRAZOLE] Allergy Severe N/V Verified 01/29/22 15:10 tramadol [From Ultram] Allergy Intermediate ITCHING Verified 01/29/22 15:10 ibuprofen [From Motrin] Allergy Unknown Verified 05/18/22 09:23 Plan I have reviewed the history and physical and performed a pertinent physical examination on my patient. No changes have occurred unless specified.
--- NOTE | 2022-05-23 13:01 | PM.OP ---
Brief Operative Note Date of Service: 05/23/22 Pre-op diagnosis: colitis Post-op diagnosis: same Procedure: flex sig to 30 cm Surgeon: Ramu Peralta Anesthesia: MAC Was an Sr Community Manager used for this Procedure?: No Estimated blood loss (mL): 5 Pathology: other Condition: stable Disposition: PACU
--- NOTE | 2022-05-23 13:05 | P.PNIM_ITS ---
Subjective Subjective Date of Service: 05/23/22 Interval History: Seen and examined this morning Follow-up for colitis/Crohn's flare Still with abdominal pain. Started on clear liquids, not eating much at this time Denies fever, chills. Denies having bowel movement although bowel movement was documented by nurse Review of Systems Review of Systems: Yes all other systems are reviewed and are negative Constitutional Constitutional: Denies chills and Denies fever(s) ENT Ears, Nose, Mouth, and Throat: Denies dizziness Cardiovascular Cardiovascular: Denies chest pain, Denies palpitations and Denies dyspnea Respiratory Respiratory: Denies cough and Denies dyspnea Gastrointestinal Gastrointestinal: Reports abdominal pain, Denies diarrhea and Denies nausea Neurologic Neurologic: Denies dizziness Endocrine Endocrine: Denies palpitations Physical Exam Vital Signs: Vital Signs: Last Vital Signs Temp 97.6 F 05/23/22 10:35 Pulse 86 05/23/22 10:35 Resp 18 05/23/22 10:35 BP 149/77 H 05/23/22 10:35 Pulse Ox 95 05/23/22 10:35 O2 Del Method 05/23/22 10:35 BMI result Body Mass Index 31.1 Appearing in no acute distress lung sounds are clear to auscultation heart regular rate rhythm, clear S1, S2 positive bowel sounds, abdomen is soft, nontender neuro patient is alert x3, no focal deficits Objective Data Active Medications Acetaminophen (Acetaminophen 325 Mg Tablet) 650 mg PO Q6H PRN PRN Reason: Pain, Mild (Pain Scale 1-3) Last Admin: 05/19/22 22:08 Dose: 650 mg Documented By: TRAV Acetaminophen (Acetaminophen 325 Mg Tablet) 650 mg PO ONCE PRN PRN Reason: Pain, Mild (Pain Scale 1-3) Docusate Sodium (Docusate Sodium 100 Mg Capsule) 100 mg PO BID [facility] Last Admin: 05/23/22 09:07 Dose: Not Given Documented By: PIERRE Non-Admin Reason: Patient Refused Duloxetine HCl (Duloxetine Hcl 60 Mg Capsule.) 60 mg PO BEDTIME [facility] Last Admin: 05/22/22 22:00 Dose: 60 mg Documented By: KARAN Hydrocortisone Sodium Succinate (Hydrocortisone Sod Succ/Pf 100 Mg Vial) 100 mg IVPUSH Q12H [facility] Last Admin: 05/23/22 06:12 Dose: 100 mg Documented By: KARAN Hydromorphone HCl (Hydromorphone Hcl 0.5 Mg/0.5 Ml Syringe) 1 mg IVPUSH Q2H PRN; Protocol PRN Reason: Pain, Severe (Pain Scale 7-10) Last Admin: 05/23/22 09:07 Dose: 1 mg Documented By: PIERRE Piperacillin Sod/Tazobactam (Sod 3.375 gm/ Sodium Chloride) 50 mls @ 100 mls/hr IV Q6H [facility] Last Infusion: 05/23/22 07:00 Dose: 0 mls/hr Documented By: CARLEEN Lactated Ringer's (Lr) 1,000 mls @ 100 mls/hr IVCONT .Q10H [facility] Last Admin: 05/23/22 09:21 Dose: 100 mls/hr Documented By: PIERRE Mesalamine (Mesalamine 400 Mg Cap.Drtab.) 800 mg PO TID [facility] Last Admin: 05/23/22 09:06 Dose: 800 mg Documented By: PIERRE Ondansetron HCl (Ondansetron Hcl 4 Mg/2 Ml Vial) 4 mg IVPUSH Q8H PRN PRN Reason: Nausea and Vomiting Last Admin: 05/22/22 17:45 Dose: 4 mg Documented By: KAMILA Ondansetron HCl (Ondansetron Hcl 4 Mg/2 Ml Vial) 4 mg IVPUSH ONCE PRN PRN Reason: Nausea and Vomiting Pharmacy Consult (Consult Rx Perform Med Rec) 1 each MISCELLANE ONCE PRN PRN Reason: Consult order Polyethylene Glycol (Polyethylene Glycol 3350 17 Gm Powd.Pack) 17 gm PO TID [facility] Last Admin: 05/23/22 09:07 Dose: Not Given Documented By: PIERRE Non-Admin Reason: Patient Refused Sodium Chloride (0.9 % Sodium Chloride Flush 3 Ml Syringe) 3 ml IVFLUSH QSHIFT [facility] Last Admin: 05/23/22 09:09 Dose: 3 ml Documented By: PIERRE Topiramate (Topiramate 100 Mg Tablet) 200 mg PO BID [facility] Last Admin: 05/23/22 09:06 Dose: 200 mg Documented By: PIERRE Labs CBC & Chem 7: 05/22/22 06:04 05/22/22 06:04 Assessment and Plan (1) Hypokalemia: Status: Acute (2) Constipation: Status: Acute (3) Exacerbation of Crohn's disease: Status: Acute (4) Colitis: Status: Acute Plan 62-year-old female with history of Crohn's disease on mesalamine, fibromyalgia who presents to the emergency department with abdominal pain found to have colitis and possible partial obstruction Sepsis Secondary to colitis/ proctitis, probable Crohn's flare. Sepsis has resolved s/p Fever, tachycardia, leukocytosis, normal lactic acid Blood cultures negative to date Continue IV hydrocortisone 100 mg every 12 hours Continue IV Zosyn Pain control Continue home mesalamine Seen and evaluated by Gastroenterology plan for flex sig today Stool studies remain uncollected Hypokalemia Resolved replace and follow Constipation. Continue bowel regimen, miralax increased mood/fibromyalgia Continue duloxetine DVT prophylaxis -Lovenox Code status-full code Attending Dr. Ying Requires ongoing inpatient hospitalization due to sepsis/colitis/Crohn's flare in need for IV antibiotics, IV steroids and IV narcotics for adequate pain control Quality Stroke Does the patient have a stroke diagnosis?: No VTE Prior VTE?: No VTE Risk Level:: Medical - moderate - high VTE Device Contraindication: N/A - Device Ordered VTE Drug Contraindication: N/A - Med Ordered
[2022-05-23] MEDS: HYDROmorphone HCl 0.5 MG/0.5 ML SYRINGE 0.25 MG IVPUSH ×3 (13:32→14:03)
--- NOTE | 2022-05-23 14:24 | PM.PNGS ---
Subjective Subjective Date of Service: 05/26/22 Interval history: Patient seen and examined known hx of Crohn's ds had been having abdl pain, lower, x 1 week She was undergoing colonoscopy earlier with Dr. Peralta Was noted to have a hole in the distal sigmoid at about level 30 cm She had a CAT scan just done showing free air, mostly in the pelvis with extravasation of contrast She complains of pain on lower abdomen Physical Exam Vital Signs: Vital Signs: Last Vital Signs Temp 97.0 F 05/23/22 13:49 Pulse 105 H 05/23/22 14:08 Resp 20 05/23/22 14:08 BP 139/85 05/23/22 14:08 Pulse Ox 95 05/23/22 14:08 O2 Del Method 05/23/22 14:08 O2 Flow Rate 3 05/23/22 14:08 BMI result Body Mass Index 31.1 Const: Other: Complaining of pain GI: Other: Very tender on the lower abdomen Palpation (GI): Guarding due to palpation present (GI) Objective Data Active Medications Acetaminophen (Acetaminophen 325 Mg Tablet) 650 mg PO Q6H PRN PRN Reason: Pain, Mild (Pain Scale 1-3) Last Admin: 05/19/22 22:08 Dose: 650 mg Documented By: TRAV Acetaminophen (Acetaminophen 325 Mg Tablet) 650 mg PO ONCE PRN PRN Reason: Pain, Mild (Pain Scale 1-3) Docusate Sodium (Docusate Sodium 100 Mg Capsule) 100 mg PO BID [facility] Last Admin: 05/23/22 09:07 Dose: Not Given Documented By: PIERRE Non-Admin Reason: Patient Refused Duloxetine HCl (Duloxetine Hcl 60 Mg Rupinder.) 60 mg PO BEDTIME [facility] Last Admin: 05/22/22 22:00 Dose: 60 mg Documented By: KARAN Fentanyl (Fentanyl Citrate/Pf 100 Mcg/2 Ml Vial) 25 mcg IVPUSH Q5M PRN; Protocol PRN Reason: Pain, Moderate (Pain Scale 4-6 Hydrocortisone Sodium Succinate (Hydrocortisone Sod Succ/Pf 100 Mg Vial) 100 mg IVPUSH Q12H [facility] Last Admin: 05/23/22 06:12 Dose: 100 mg Documented By: KARAN Hydromorphone HCl (Hydromorphone Hcl 0.5 Mg/0.5 Ml Syringe) 1 mg IVPUSH Q2H PRN; Protocol PRN Reason: Pain, Severe (Pain Scale 7-10) Last Admin: 05/23/22 09:07 Dose: 1 mg Documented By: PIERRE Hydromorphone HCl (Hydromorphone Hcl 0.5 Mg/0.5 Ml Syringe) 0.25 mg IVPUSH Q5M PRN; Protocol PRN Reason: Pain, Severe (Pain Scale 7-10) Last Admin: 05/23/22 14:03 Dose: 0.25 mg Documented By: ELI Piperacillin Sod/Tazobactam (Sod 3.375 gm/ Sodium Chloride) 50 mls @ 100 mls/hr IV Q6H [facility] Last Infusion: 05/23/22 07:00 Dose: 0 mls/hr Documented By: CARLEEN Mesalamine (Mesalamine 400 Mg Cap.Drtab.) 800 mg PO TID [facility] Last Admin: 05/23/22 09:06 Dose: 800 mg Documented By: PIERRE Ondansetron HCl (Ondansetron Hcl 4 Mg/2 Ml Vial) 4 mg IVPUSH Q8H PRN PRN Reason: Nausea and Vomiting Last Admin: 05/22/22 17:45 Dose: 4 mg Documented By: KAMILA Ondansetron HCl (Ondansetron Hcl 4 Mg/2 Ml Vial) 4 mg IVPUSH ONCE PRN PRN Reason: Nausea and Vomiting Ondansetron HCl (Ondansetron Hcl 4 Mg/2 Ml Vial) 4 mg IVPUSH ONCE PRN PRN Reason: Nausea and Vomiting Pharmacy Consult (Consult Rx Perform Med Rec) 1 each MISCELLANE ONCE PRN PRN Reason: Consult order Polyethylene Glycol (Polyethylene Glycol 3350 17 Gm Powd.Pack) 17 gm PO TID [facility] Last Admin: 05/23/22 09:07 Dose: Not Given Documented By: PIERRE Non-Admin Reason: Patient Refused Sodium Chloride (0.9 % Sodium Chloride Flush 3 Ml Syringe) 3 ml IVFLUSH QSHIFT [facility] Last Admin: 05/23/22 09:09 Dose: 3 ml Documented By: PIERRE Topiramate (Topiramate 100 Mg Tablet) 200 mg PO BID [facility] Last Admin: 05/23/22 09:06 Dose: 200 mg Documented By: PIERRE Labs CBC & Chem 7: 05/26/22 05:18 05/26/22 05:18 Procedures Date of Service Date of Service: 05/23/22 Progress Note: A&P Assessment and plan (1) Perforated viscus: Status: Acute Assessment and Plan: Need to proceed with laparotomy Likely resection and colostomy I had a long discussion with the patient and her daughter Meri about the planned procedure I explained the technique as well as the risks benefits and alternatives Risks include bleeding, infections, bowel injury, injury to the urinary tract, inherent risks of anesthesia, staple line leak The understand and both patient and daughter agree to proceed Consent officially given by daughter Meri I have reviewed case and colonoscopy findings with Dr. Peralta - hole in colon appears to be at level 30 cm Time Spent With Patient Time: Total time spent is greater than 50% in coordination of care (as documented) at patient's floor/unit and/or counseling patient: Quality Stroke Does the patient have a stroke diagnosis?: No VTE Prior VTE?: No VTE Risk Level:: Medical - moderate - high VTE Device Contraindication: N/A - Device Ordered VTE Drug Contraindication: N/A - Med Ordered
--- NOTE | 2022-05-23 16:26 | PM.EVENT ---
Event Note Date of Service: 05/23/22 Event Note: GI flex sig to 30 cm showed a large abscess cavity in sigmoid with some associated ulceration, stool and a second area of ulceration 10x20 mm. biopsied. mucosa from 0-25cm looked good. Formed stool seen beyond 30 cm. Post procedure Ju had significant worsening abdominal exam; stat ct showed free air and fluid with pelvic abscess posterior to uterus. Discussed with Drs. Thapa and Bentley and she will go to OR for exploration and colostomy. Discussed with patient, daughter Meri, and message left for Brandon on voice mail.
--- NOTE | 2022-05-23 17:40 | P.OP_ITS ---
Operative Note Operative Note Date of Service: 05/23/22 Narrative: Preop diagnosis: Perforated viscus Postop diagnosis: Perforation in the distal sigmoid, large, about 2 cm in diameter, with 2 large stool balls, each about 3 cm in diameter immediately adjacent to this Extensive fecal soilage in the peritoneum Marked induration, frequent peritonitis especially in the pelvis, with the sigmoid folded upon itself covered in thick inflammatory rind Procedure: Exploratory laparotomy, extensive lysis of adhesions, sigmoid resection, and colostomy, intraop flexible sigmoidoscopy, abdominal washout Surgeon: Deandre Hagan MD press assistant and feeder: Andrea Thapa MD The patient is a 62 year female was admitted over the weekend about 4-5 days ago because of abdominal pain. Initial CT scan suggestive of the aspen changes wit hin the pelvis from the distal sigmoid. This was deemed to be at least in part due to her history of Crohn's disease. However, she had an attempt at colonoscopy done today by Dr. Peralta and there was a large hole in the distal sigmoid along with large hard stool balls. Her CAT scan was immediately repeated showing a fluid with the pelvis, free air, consistent with a perforated viscus. I had talked to her daughter Meri, as well as the patient herself about need to proceed with laparotomy. The understood the planned procedure as well as the risks, benefits, and alternatives. She was brought to the operating room. She was placed in modified lithotomy position under general anesthesia via endotracheal tube. The abdomen the perineum were prepped and draped in the usual sterile fashion. A surgical time- out was done. The patient was receiving IV Zosyn as a scheduled does I have made low midline incision using a blade 10 and this was carried down through the full-thickness of the skin subcutaneous fat with electrocautery all the way down to the fascia. The fascia was incised. The peritoneum was entered. Immediately, large amounts of liquid stool was noted, practically gushing from the pelvis. This point therefore we had to do a lot of suctioning with to suction catheters to at least clear out the hernia my of this large amounts of fecal soilage with feculent peritonitis. I then proceeded to still the patient had down to allow bowel loops retract away from the pelvis. I applied the Bookwalter retractors and moved the small bowel loops away from the pelvis. At this point therefore we able to examine the pelvis. There was note of a lot of inflammatory rind covering the distal sigmoid along with particles. Had to copiously irrigate to allow as to visualize the sigmoid. We followed the sigmoid distally. The system moist however appeared to be folded upon itself and was densely adherent to the pelvis. At this point we therefore difficulty doing the sigmoid more distally so an intraop flexible sigmoidoscopy was done. We were then able to see what appeared to be a large hole her distal sigmoid. This part of the sigmoid was folded upon itself and appeared to be stuck to the pelvis. With therefore had to do a lot of extensive mobilization and lysis of adhesions because of the presence of thick inflammatory rind in the mesentery as well as the sigmoid. We tried to mobilize the distal sigmoid to allow as to reach the area of operation. There was significant difficulty in accomplishing this. I therefore decided to transect the midsigmoid at this point. I mesenteric defects created and I used a ANA M 60 mm just to divide the sigmoid. This was supple but there was note of inflammatory changes along with foreshortening of the mesentery of the sigmoid. I proceeded to then divide the mesentery of the sigmoid to try to follow this more distally into the pelvis. This part of the procedure took an extended period of time because of the presence of inflammatory changes in the mesentery . Eventually, I was able to visualize the Mrs. Sigmoid more distally and we incised this to allow as to ?unfold? the sigmoid. By doing so we able to mobilize a good length of the very distal sigmoid and reach past the per large perforation. Continued to mobilize the distal sigmoid by dividing the very inflamed and foreshortened mesentery with the LigaSure until was able to have a circumferential grasp of the very distal sigmoid past the area of perforation. Once this was achieved, I was able to divide the very distal sigmoid the perfor ation using TA 60 mm staplers. This completed the distal sigmoid and this was sent as a specimen. Examination of this distal sigmoid showed a large hole, about 3 cm in diameter. Earlier, there were 2 large hardened stools, each measuring about 3 cm in size within the distal sigmoid abutting the area of the perforation. There is possibility that this was a stercoral ulcer that had perforated. I reinforced the line of the distal rectal stump with a running Dexon 2-0 stitch. I copies irrigated again. We then proceeded to do our colostomy . I excised the discoid piece of skin on the left lower quadrant which had we been marked earlier at the beginning of the case. This was made using a blade 10. I then divided through the very thick subcutaneous fat using electrocautery down to the fascia. I incised the anterior sheath with electrocautery and did muscle- splitting of the rectus. We then made our through and through small opening and dilated this to accommodate 3 of my fingers. We pulled up the sigmoid stump through the stoma opening using a Concord clamp. We then proceeded to observe the stoma. This appeared ischemic on the old staple line so I excised the distal 2-3 cm using electrocautery. There was note of good arterial bleeding on the divided edge this time. I then proceeded to secure the full-thickness of the wall of the divided sigmoid to the subdermal layer with a circumferential row of Dexon 3-0 sutures to mature our colostomy. I placed my index finger through the stoma and this appeared patent past the fascial layer. This stoma appeared viable and was not ischemic. There was note of good arterial bleeding on the cut edge of the wall. We then proceeded to copiously irrigate more of the peritoneal cavity until this was clear. Positioned a 10. NOHEMI drain on the pelvis adjacent to the staple line of the rectal stump. The NOHEMI drain was brought out through a stab wound as an in exit site on the right lower quadrant. This was secured with nylon 3-0 interrupted sutures to anchor this to the skin. We copiously irrigated again. I examined the colostomy from under the peritoneum and this appeared to be viable without any twisting. We removed all packings and the Bookwalter retractors. We observed for hemostasis. Once hemostasis was confirmed I proceeded to then close the fascia with a running Maxon 1 stitch. The skin was reapposed with skin jazmine loosely and I placed 1/2 inch iodoform into the subcutaneous layer in between the jazmine. I infiltrated the subcutaneous layer around the laparotomy incision with Marcaine 0.5% for postop analgesia. The stoma appliance was placed. Dressings were applied. The procedure was completed. The patient tolerated the procedure well and there were no immediate complicatio ns. Initial and final counts of sponges and instruments were correct. Estimated blood loss was about 200 cc. She did have overt feculent peritonitis and postop course is anticipated to be brook. She was transferred to the intensive care unit. The case was discussed with yoker machine operator. I had updated the family well after the procedure.
[2022-05-23] MEDS: propofoL 1,000 MG/100 ML VIAL 7.18 MG IVCONT (18:15)
[2022-05-23] MEDS: fentaNYL citrate/NS 1,000 MCG/100 ML PLAST..BAG 2.5 MCG IVCONT (18:23)
[2022-05-23] MEDS: HYDROmorphone HCl 2 MG/ML VIAL IVPUSH (18:29)
[2022-05-23] MEDS: Lactated Ringers 2,000 ML 1000 ML IV (18:30)
[2022-05-23] MEDS: Esmolol HCl/NaCl Iso 2,500 MG/250 ML IV.SOLN IVCONT (18:33)
--- NOTE | 2022-05-23 18:57 | PM.EVENT ---
Event Note Date of Service: 05/23/22 Event Note: seen postop in ICU central line on left subclavian in place tachycardic UO seem adequate NOHEMI drain with serosanguinous output anticipate brook clinical course due to fecal peritonitis expect ileus NGT in IV abx volume resuscitation daughter updated
--- NOTE | 2022-05-23 19:16 | PC.NURSE ---
1745-pt to room 254 from OR with Anesthesia and RN. GCS 3, pearla, lung sounds clear bilaterally A&P throughout, bowel sounds not audible upon assessment. Pulses +2 x4, odell present, NOHEMI present to RLQ and is to bulb suction. 60ml of red/brown drainage, let middle abdominal ostomy site red and beefy and no drainage noted. mid-abdominal incision CDI. Upon checking NG placement, was not able to hear placement upon checking. Anesthesia from OR pulled NG out until gastric contents were aspirated. Gastric contents suctioned out orally, Dr. barrow at bedside. Difficulty obtaining a non-invasive pressure. Anesthesia administered bhargavi bolus x2. SBP 122 after bhargavi administration. Levo gtt was infusing at 0.3 mcg upon arrival to ICU. pt is sinus tach 160's. Rt femoral central line infusing, but unable to obtain blood return. Dr meyers. 1800-pt frontal bath completed, but SBP low so increased levo gtt to 0.6. diprivan gtt started at 15 mcg, Fentanyl gtt started at 50 and decreased to 25mcg per dr barrow verbal request. . 1830-restraints applied to bilateral wrists, Esmolol gtt started at 10 mcg in femoral line. pt's on the unit and informed we are stablizing the pt and will bring him back when pt is stable. 1845-and pt prepped for new left subclavin central line. 1850-report given to TREVON Martinez
--- NOTE | 2022-05-23 19:27 | P.PCNCC_ITS ---
Procedures Date of Service Date of Service: 05/23/22 Central Line Placement Left SC: Central Line Comments: PROCEDURE:? Emergent insertion left supraclavicular subclavian central venous line. INDICATION:? Septic shock, acute respiratory failure. ANESTHESIA:? IV sedation (There was an in-situ femoral line that was placed in the ED and considered non- sterile.? One port didn?t work.) PROCEDURE:? Vascular ultrasound was used to examine the left side (the left side was chosen to preserve the right side for a hemodialysis catheter).? A large compressible internal jugular vein was noted in the left neck superior to the carotid artery.? Vascular ultrasound was then used to examine the supraclavicular area.? A large broad compressible vein was noted. The left supraclavicular, subclavian, and left neck areas were widely prepped and draped in full sterile fashion.? The vessels were located by US.? The medial subclavian vein was cannulated on the 1st pass of the 18 gauge thin wall.? The wire was threaded without incident.? A 7 [place]an by 16 cm triple-lumen catheter was advanced into the vein up to the hub via the Seldinger technique without incident.? There was good aspirate of blood x3.? The catheter was sutured x3 w 3-0 silk and a Biopatch and dry sterile dressing were applied. Postop chest x-ray is pending.? The patient tolerated the procedure well w no complications.
--- NOTE | 2022-05-23 19:28 | P.PNCC_ITS ---
Subjective Subjective Date of Service: 05/23/22 Interval History: Mrs. Hankins was tranasferred to the ICU directly from the OR still intubated after emergency E-lap, extensive lysis of adhesions, sigmoid resection and colostomy, and abdominal washout for perforated viscus. The patient is a 62 year old female with history of Crohn's disease who present ed ambulatory to the ED on May 18 complaining of 2 weeks of abdominal pain. ?She was being treated with prednisone for a presumed flare up.? On the morning of presentation, she developed sudden onset of sharp pain. ?Initial CT scan suggested severe constipation and a question of partial obstruction with worsening severe colitis of the sigmoid colon and proctitis, with increased wall thickening.? There was no evidence of free air. ?She was treated with opiates and Zosyn.? The patient was admitted to Medicine and started on systemic steroids. ?Lactic acid was normal on May 19. The patient had no relief with tx.? She underwent flex sig by Dr. Peralta today at which he found a large abscess cavity in the sigmoid with some associated ulceration, stool and a second area of ulceration, which was biopsied.? Post procedure uJ had significant worsening abdominal exam; stat ct showed free air and fluid with pelvic abscess posterior to the uterus. ?She was taken directly to the OR. At laparotomy, was found a large perforation in the distal sigmoid, with two large stool balls immediately adjacent to the perforation.? There was extensive fecal soilage of the peritoneum, w marked indurated peritonitis especially in the pelvis, with the sigmoid folded upon itself covered in thick inflammatory rind.? She underwent extensive lysis of adhesions, sigmoid resection and colostomy, and abdominal washout.? The abdomen was closed and the patient was brought out intubated to ICU. The anesthetic course was marked by initial mild hypotension, with progressive tachycardia as the operation went on, and then progressive hypotension, ultimately requiring Levophed.? Intraop blood loss was minimal; she was given 2.5 L of crystalloid. On arrival to the ICU, the heart rate was 141, sinus rhythm.? Blood pressure was 120-130 systolic on 0.3ug of Levophed.? Unable to get a good pulse ox signal.? T he temp was .?? No JVD at 10?.? Chest was CTA with normal exp phase.? RRR, soft heart tones, no M or G.? Abdomen looks distended.? No BS.? The stoma looks great, nice and red.? The belly is soft.? No edema. Labs are pending. My bedside ECHOCARDIOGRAM:? Difficult study, but both left and right ventricles look grossly normal sized with hyperdynamic function.? IVC measured about 1.5 cm with maybe 20% inspiratory collapse. I put in a new left SCL CVL; there was no blood return. IMPRESSION: 1. Septic shock following perf?d viscus w fecal peritonitis.? This was obviously ?chronic?, not acute.? We?ll chg Abx to meropenam.? We?ll place an A-line. 2. Severe hypovolemia.? As soon as we gave her 2L crystalloid bolus, her BP zoomed up to 140+, and her Levophed dose cut in half. 3. Acute resp failure. Check labs, hollie renal indices.? Would not be surprised if she went to renal failure.? Replete electrolytes as needed.? Will likely need more fluid resuscitation. The patient is very critically ill, expect her to get worse through the night. Critical care time (including chart review, multiple discussions with anesthesia, discussion with surgeon, hospital course summary, multiple visits to the bedside in the operating room and in the ICU; excluding procedures):? 110+ min. Critical Care Time (minutes): 110 Physical Exam Vital Signs: Vital Signs: Last Vital Signs Temp 98.7 F 05/23/22 14:23 Pulse 111 H 05/23/22 19:17 Resp 13 05/23/22 19:17 BP 141/26 H 05/23/22 19:17 Pulse Ox 93 05/23/22 18:33 O2 Del Method 05/23/22 19:17 O2 Flow Rate 3 05/23/22 14:38 FiO2 50 05/23/22 19:17 BMI result Body Mass Index 31.1 Objective Data Labs CBC & Chem 7: 05/22/22 06:04 05/22/22 06:04 Labs: Laboratory Results - last 24 hr 05/23/22 15:31 Blood Type B Positive Antibody Screen NEGATIVE Microbiology Microbiology Results: Microbiology 05/19/22 08:49 Blood - Venous Blood Culture - Preliminary No growth after 48 hours. 05/19/22 08:49 Blood - Venous Blood Culture - Preliminary No growth after 48 hours. Quality Stroke Does the patient have a stroke diagnosis?: No VTE Prior VTE?: No VTE Risk Level:: Medical - moderate - high VTE Device Contraindication: N/A - Device Ordered VTE Drug Contraindication: N/A - Med Ordered Critical Care Time Critical Care Time (minutes): 120
[2022-05-23 20:08] LABS: Hematocrit 37.6 % (37.0-47.0); Hemoglobin 12.5 g/dl (12.0-16.0); Mean Corpuscular HGB Conc 33.2 g/dl (31.0-35.0); Mean Corpuscular Hemoglobin 29.6 pg (27.0-33.0); Mean Corpuscular Volume 88.9 fL (80.0-98.0); Mean Platelet Volume 10.2 fL (9.4-12.3); NRBC Pct Auto 0.4 /100WBC (0.0-0.2); Platelet Count 274 X10*3/uL (160-400); Red Blood Count 4.23 X10*6/uL (4.20-5.50); Red Cell Distribution Width 13.8 % (11.0-16.0); White Blood Count 11.3 X10*3/uL (4.8-10.8)
[2022-05-23 20:12] LABS: VBG Base Excess -10.1 mmol/L; VBG HCO3 15 mmol/L (22-26); VBG pCO2 32 mmHg; VBG pH 7.28 (7.32-7.43); VBG pO2 55 mmHg
[2022-05-23 20:13] LABS: Venous Blood Gas Refer to POC result
[2022-05-23] MEDS: Lactated Ringers 1,000 ML 999 ML IV (20:35)
[2022-05-23 21:00] LABS: Alanine Aminotransferase 34 U/L (0-31); Albumin Level 1.4 g/dL (3.5-5.0); Alkaline Phosphatase 78 U/L (39-117); Anion Gap 16 (12-20); Aspartate Amino Transferase 28 U/L (5-31); Bilirubin Total 1.1 mg/dL (0.0-1.0); Blood Urea Nitrogen 14 mg/dL (9-16); Calcium 6.9 mg/dL (8.4-10.2); Carbon Dioxide 15 mmol/L (22-29); Chloride 113 mmol/L (96-108); Creatinine Clr Calc Pharmacy 75.7; Estimated Glomerular Filt Rate > 60; Glucose Random 158 mg/dL (60-115); Magnesium 1.5 mg/dL (1.6-2.6); Phosphorus 6.1 mg/dL (2.7-4.5); Potassium 3.4 mmol/L (3.3-5.1); Sodium 141 mmol/L (135-145); Total Protein 2.5 g/dL (6.5-8.0)
[2022-05-23 21:03] LABS: Lactic Acid 5.7 mmol/L (0.5-2.0)
--- NOTE | 2022-05-23 21:14 | W.PM.CCHP ---
Procedures Date of Service Date of Service: 05/23/22 Arterial Line Consent: Emergent-no informed consent obtained Sterile Technique Used: Yes Time out performed: Yes Size (Gauge): 16 Technique used: direct puncture technique Post-Procedure: line sutured into place and dry sterile dressing placed Patient tolerated procedure: well, no complications and other (3 attemps made with the last being successful) Complications: none Site: right (axillary Artery)
[2022-05-23 21:20] LABS: ABG Base Excess -11.4 mmol/L; ABG HCO3 13 mmol/L (22-26); ABG pCO2 27 mmHg (32-45); ABG pH 7.29 (7.35-7.45); ABG pO2 79 mmHg (83-108)
[2022-05-23] MEDS: Hydrocortisone Sod Succ/PF 100 MG VIAL 50 MG IVPUSH (21:27)
[2022-05-23] MEDS: Sodium Bicarbonate 8.4% 50 MEQ/50 ML SYRINGE 150 MEQ IVPUSH (21:28)
[2022-05-23] MEDS: Albumin Human 25 % 100 ML IV (21:59)
[2022-05-23 22:05] LABS: Reflex Lactate? Lactic Acid Added
[2022-05-23] MEDS: Potassium Chloride/H20 40 MEQ/100 ML PIGGYBACK 100 MEQ IV (22:10)
[2022-05-23 22:45] LABS: ~Lactic Acid-LAB USE ONLY 6.4 mmol/L (0.5-2.0)
[2022-05-23 23:11] LABS: ABG Refer to POC result
[2022-05-24] VITALS (38 sets, daily range): BP systolic 89–134; BP diastolic 45–73; PULSE 101–119; RESP 13–27; TEMP 34.5–37.9; O2SAT 88–97; BMI 31.1
[2022-05-24] MEDS: Magnesium Sulfate/H2O 2 GM/50 ML PIGGYBACK IV ×2 (00:08→07:18)
[2022-05-24] MEDS: Albumin Human 25 % 100 ML IV ×6 (00:13→23:40)
[2022-05-24] MEDS: Sodium Bicarbonate 8.4% 150 MEQ in Dextrose 5 % 850 ML 100 MEQ IV ×2 (00:16→09:39)
[2022-05-24] MEDS: 0.9 % Sodium Chloride Flush 3 ML SYRINGE IVFLUSH ×3 (00:21→23:36)
[2022-05-24 00:26] LABS: Reflex Lactate? 2 Y
[2022-05-24] MEDS: fentaNYL citrate/NS 1,000 MCG/100 ML PLAST..BAG 10 MCG IVCONT ×3 (01:04→18:50)
[2022-05-24] MEDS: propofoL 1,000 MG/100 ML VIAL 11.97 MG IVCONT (01:07)
[2022-05-24 01:09] LABS: Hemoglobin 12.3 g/dl (12.0-16.0); Mean Corpuscular HGB Conc 34.2 g/dl (31.0-35.0); Mean Corpuscular Hemoglobin 29.9 pg (27.0-33.0); Mean Corpuscular Volume 87.4 fL (80.0-98.0); NRBC Pct Auto 0.8 /100WBC (0.0-0.2); Platelet Count 334 X10*3/uL (160-400); Red Blood Count 4.12 X10*6/uL (4.20-5.50); Red Cell Distribution Width 13.7 % (11.0-16.0)
[2022-05-24 01:10] LABS: WBC ABN SCTR FOR CBC 1
[2022-05-24 01:21] LABS: ~Lactic Acid-LAB USE ONLY 5.6 mmol/L (0.5-2.0)
[2022-05-24 01:43] LABS: Alanine Aminotransferase 28 U/L (0-31); Albumin Level 2.9 g/dL (3.5-5.0); Alkaline Phosphatase 58 U/L (39-117); Anion Gap 22 (12-20); Aspartate Amino Transferase 24 U/L (5-31); Bilirubin Total 1.3 mg/dL (0.0-1.0); Blood Urea Nitrogen 16 mg/dL (9-16); Calcium 7.1 mg/dL (8.4-10.2); Carbon Dioxide 16 mmol/L (22-29); Chloride 110 mmol/L (96-108); Creatinine Clr Calc Pharmacy 45.4; Estimated Glomerular Filt Rate 42; Glucose Random 188 mg/dL (60-115); Magnesium 1.7 mg/dL (1.6-2.6); Phosphorus 5.7 mg/dL (2.7-4.5); Potassium 3.8 mmol/L (3.3-5.1); Sodium 144 mmol/L (135-145); Total Protein 3.9 g/dL (6.5-8.0)
[2022-05-24 01:55] LABS: Band Neutrophils Percent 41 % (3-5); Large Platelet PRESENT; Lymphocytes Percent Manual 16 % (20-40); Macrocytosis 1+ (5-14) /OIF; Metamyelocytes Percent 7 %; Monocytes Percent Manual 8 % (2-11); Myelocytes Percent 3 %; Neutrophils Percent Manual 25 % (45-73); Platelet Estimate SLIGHTLY INCREASED (NORMAL); Platelet Morphology Comment NORMAL; RBC Morphology NOTED
[2022-05-24 01:56] LABS: Dohle Bodies PRESENT; Lymphocytes Absolute Manual 2.2 X10*3/uL (1.2-4.9); Monocytes Absolute Manual 1.1 X10*3/uL (0.1-1.2); Myelocytes Absolute 0.4 X10*/uL; Neutrophils Absolute Manual 9.2 X10*3/uL (2.0-8.3); Ovalocytes 1+ (5-14) /OIF; Polychromasia 1+ (0-2) /OIF; Smudge Cells PRES; White Blood Count 13.9 X10*3/uL (4.8-10.8)
--- NOTE | 2022-05-24 04:24 | PC.NURSE ---
Addendum entered by Justice Pardo RN 05/24/22 05:26: RIGHT FEMORAL TLC D/C'D INTACT PER ICU PA..NO BLEEDING Original Note: CARE ASSUMED 23:15....REMAINS TUBED/VENTED.....ABDOMEN DISTENDED AND FIRM---ABDOMEN SILENT---OG TUBE WITH BILIOUS DRAINAGE---NOHEMI DRAIN WITH FECAL SMELLING BROWN DRAINAGE--ICU PA PRESENT AND AWARE---D5W/NaHCO3 DRIP STARTED 100 CC/HR AND TITRATED TO 150 CC/HR PER ICU PA...[place] WITH MINIMAL OUTPUT AT HS...SLOW IMPROVEMENT OVERNIGHT...ESMOLOL DRIP 10 MCG/KG/MIN...SINUS TACH HR 112-114...RIGHT AXILLARY A-LINE WITH GOOD WAVEFORM AND BLOOD RETURN...FENTANYL/PROPOFOL DRIPS TITRATED FOR VENT SYNCHRONY AND COMFORT
[2022-05-24 05:10] LABS: ABG Base Excess -3.3 mmol/L; ABG HCO3 20 mmol/L (22-26); ABG pCO2 32 mmHg (32-45); ABG pO2 83 mmHg (83-108)
[2022-05-24 05:13] LABS: Hematocrit 29.4 % (37.0-47.0); Mean Corpuscular Hemoglobin 29.8 pg (27.0-33.0); Mean Corpuscular Volume 87.5 fL (80.0-98.0); Mean Platelet Volume 10.4 fL (9.4-12.3); NRBC Pct Auto 0.3 /100WBC (0.0-0.2); Platelet Count 275 X10*3/uL (160-400); Red Blood Count 3.36 X10*6/uL (4.20-5.50); Red Cell Distribution Width 13.6 % (11.0-16.0)
[2022-05-24 05:15] LABS: WBC ABN SCTR FOR CBC 1
[2022-05-24 05:20] LABS: ABG Refer to POC result
[2022-05-24 05:30] LABS: Alanine Aminotransferase 20 U/L (0-31); Albumin Level 3.3 g/dL (3.5-5.0); Alkaline Phosphatase 35 U/L (39-117); Anion Gap 17 (12-20); Aspartate Amino Transferase 18 U/L (5-31); Bilirubin Total 1.3 mg/dL (0.0-1.0); Blood Urea Nitrogen 17 mg/dL (9-16); Carbon Dioxide 20 mmol/L (22-29); Chloride 107 mmol/L (96-108); Creatinine Clr Calc Pharmacy 45.4; Estimated Glomerular Filt Rate 42; Glucose Random 256 mg/dL (60-115); Phosphorus 4.1 mg/dL (2.7-4.5); Potassium 2.9 mmol/L (3.3-5.1); Sodium 141 mmol/L (135-145)
[2022-05-24 05:38] LABS: Band Neutrophils Percent 41 % (3-5); Lymphocytes Percent Manual 15 % (20-40); Macrocytosis 1+ (5-14) /OIF; Metamyelocytes Percent 2 %; Monocytes Percent Manual 3 % (2-11); Myelocytes Percent 1 %; Neutrophils Percent Manual 37 % (45-73); Nucleated Red Blood Cells 2 /100WBC (0-0); Platelet Estimate NORMAL (NORMAL); Promyelocytes Percent 1 %; RBC Morphology NOTED
[2022-05-24 05:39] LABS: Dohle Bodies PRESENT; Lymphocytes Absolute Manual 2.6 X10*3/uL (1.2-4.9); Metamyelocytes Absolute 0.3 X10*3/uL; Monocytes Absolute Manual 0.5 X10*3/uL (0.1-1.2); Myelocytes Absolute 0.2 X10*/uL; Neutrophils Absolute Manual 13.4 X10*3/uL (2.0-8.3); Platelet Morphology Comment NORMAL; Polychromasia 1+ (0-2) /OIF; Promyelocytes Absolute 0.2 X10*3/uL; Smudge Cells PRES; Toxic Vacuolation PRESENT; White Blood Count 17.2 X10*3/uL (4.8-10.8)
[2022-05-24] MEDS: Hydrocortisone Sod Succ/PF 100 MG VIAL 50 MG IVPUSH ×2 (06:02→19:56)
[2022-05-24] MEDS: Furosemide 20 MG/2 ML VIAL IVPUSH (07:18)
[2022-05-24] MEDS: Potassium Chloride/H20 40 MEQ/100 ML PIGGYBACK 50 MEQ IV ×2 (07:18→14:18)
--- NOTE | 2022-05-24 07:45 | P.PNGS_ITS ---
Subjective Subjective Date of Service: 05/25/22 Interval history: Remains on ventilator On Levophed No stoma Physical Exam Vital Signs: Vital Signs: Last Vital Signs Temp 99.4 F 05/24/22 03:00 Pulse 111 H 05/24/22 07:00 Resp 13 05/24/22 07:00 BP 125/70 05/24/22 07:00 Pulse Ox 95 05/24/22 07:00 O2 Del Method 05/24/22 07:00 O2 Flow Rate 3 05/23/22 14:38 FiO2 40 05/24/22 07:00 BMI result Body Mass Index 31.1 Const: Other: Sedated, on ventilator Resp: Other: On ventilator Cardio: Rate: tachycardic Rhythm: regular rhythm GI: Other: Soft, stoma without output yet, dressings dry, NOHEMI serosanguineous Objective Data Active Medications Duloxetine HCl (Duloxetine Hcl 60 Mg Capsule.Dr) 60 mg PO BEDTIME COUNTS INCLUDE 234 BEDS AT THE [facility] Last Admin: 05/23/22 22:53 Dose: Not Given Documented By: MARIAJOSE Non-Admin Reason: NPO Fentanyl (Fentanyl Citrate/Pf 100 Mcg/2 Ml Vial) 100 mcg IVPUSH Q5M PRN; Protocol PRN Reason: short term pain or WOB Hydrocortisone Sodium Succinate (Hydrocortisone Sod Succ/Pf 100 Mg Vial) 50 mg IVPUSH Q12H COUNTS INCLUDE 234 BEDS AT THE [facility] Last Admin: 05/24/22 06:02 Dose: 50 mg Documented By: LUIS Hydromorphone HCl (Hydromorphone Hcl 0.5 Mg/0.5 Ml Syringe) 1 mg IVPUSH Q2H PRN; Protocol PRN Reason: Pain, Severe (Pain Scale 7-10) Last Admin: 05/23/22 09:07 Dose: 1 mg Documented By: PIERRE Hydromorphone HCl (Hydromorphone Hcl 1 Mg/Ml Syringe) 1 mg IVPUSH Q1H PRN; Protocol PRN Reason: mild pain Hydromorphone HCl (Hydromorphone Hcl 2 Mg/Ml Vial) 2 mg IVPUSH Q1H PRN; Protocol PRN Reason: severe pain Propofol (Diprivan) 1,000 mg in 100 mls @ 0 mls/hr IVCONT .Q0M COUNTS INCLUDE 234 BEDS AT THE [facility]; Protocol Last Titration: 05/24/22 04:04 Dose: 30 mcg/kg/min, 14.36 mls/hr Documented By: LUIS Fentanyl (Sublimaze/Ns) 1,000 mcg in 100 mls @ 0 mls/hr IVCONT .Q0M GAUDENCIO; Protocol Last Titration: 05/24/22 06:25 Dose: 100 mcg/hr, 10 mls/hr Documented By: LUIS Esmolol HCl (Brevibloc/Nacl) 2,500 mg in 250 mls @ 0 mls/hr IVCONT .Q0M GAUDENCIO; Protocol Last Admin: 05/23/22 18:33 Dose: 10 mcg/kg/min, 4.79 mls/hr Documented By: MARIAJOSE Comments: Hung by prev shift RN's Norepinephrine Bitartrate (Levophed) 8 mg in 250 mls @ 0 mls/hr IVCONT .Q0M GAUDENCIO; Protocol Last Admin: 05/24/22 05:59 Dose: 0.6 mcg/kg/min, 89.78 mls/hr Documented By: LUIS Sodium Bicarbonate 150 meq/ (Dextrose) 1,000 mls @ 100 mls/hr IV .Q10H COUNTS INCLUDE 234 BEDS AT THE [facility] Last Infusion: 05/24/22 06:26 Dose: 100 mls/hr Documented By: LUIS Potassium Chloride (Potassium Chloride/H20) 40 meq in 100 mls @ 50 mls/hr IV Q2H COUNTS INCLUDE 234 BEDS AT THE [facility] Stop: 05/24/22 10:59 Last Admin: 05/24/22 07:18 Dose: 50 mls/hr Documented By: ISH Meropenem 1 gm/ Sodium (Chloride) 100 mls @ 200 mls/hr IV Q8H GAUDENCIO Albumin Human (Kedbumin 25 %) 100 mls @ 100 mls/hr IV Q1H GAUDENCIO Stop: 05/24/22 08:59 Last Admin: 05/24/22 07:19 Dose: 100 mls/hr Documented By: ISH Magnesium Sulfate (Magnesium Sulfate/H2o) 2 gm in 50 mls @ 25 mls/hr IV ONCE ONE Stop: 05/24/22 08:19 Last Admin: 05/24/22 07:18 Dose: 25 mls/hr Documented By: ISH Mesalamine (Mesalamine 400 Mg Cap.Drtab.) 800 mg PO TID GAUDENCIO Last Admin: 05/23/22 22:53 Dose: Not Given Documented By: MARIAJOSE Non-Admin Reason: NPO Pharmacy Consult (Consult Rx Perform Med Rec) 1 each MISCELLANE ONCE PRN PRN Reason: Consult order Sodium Chloride (0.9 % Sodium Chloride Flush 3 Ml Syringe) 3 ml IVFLUSH QSHIFT COUNTS INCLUDE 234 BEDS AT THE [facility] Last Admin: 05/24/22 07:18 Dose: 3 ml Documented By: ISH Topiramate (Topiramate 100 Mg Tablet) 200 mg PO BID COUNTS INCLUDE 234 BEDS AT THE [facility] Last Admin: 05/23/22 22:53 Dose: Not Given Documented By: MARIAJOSE Non-Admin Reason: NPO Labs CBC & Chem 7: 05/25/22 05:10 05/25/22 05:10 Labs: Laboratory Results - last 24 hr 05/23/22 05/23/22 05/23/22 15:31 20:00 20:00 MCV 88.9 MCH 29.6 MCHC 33.2 RDW 13.8 Plt Count 274 D MPV 10.2 Immature Gran % (Auto) Neut % (Auto) Lymph % (Auto) [place] % (Auto) Eos % (Auto) Baso % (Auto) Lymph # (Auto) [place] # (Auto) Eos # (Auto) Baso # (Auto) Abs Immat Gran (auto) Absolute Neuts (auto) Absolute Nucleated RBC 0.050 H Nucleated RBC % (auto) 0.4 H Neutrophils % (Manual) Band Neutrophils % Lymphocytes % (Manual) Monocytes % (Manual) Metamyelocytes % Myelocytes % Promyelocytes % Abs Neuts (Manual) Lymphocytes # (Manual) Monocytes # (Manual) Metamyelocytes # Myelocytes # Promyelocytes # Nucleated RBCs Smudge Cells Toxic Vacuolation Dohle Bodies Platelet Estimate Large Platelets Plt Morphology Comment RBC Morphology Polychromasia Macrocytosis Ovalocytes O2 Saturation ABG pH at Pt Temp ABG pCO2 at Pt Temp ABG pO2 at Pt Temp ABG HCO3 ABG Base Excess (Actual) VBG pH VBG pCO2 VBG pO2 VBG HCO3 VBG O2 Saturation VBG Base Excess Anion Gap 16 Estim Creat Clear Calc 75.7 Estimated GFR > 60 Random Glucose 158 H Lactic Acid Lactic Acid F/U @ 2Hr Lactic Acid F/U @ 4Hr Calcium 6.9 L D Phosphorus 6.1 H Magnesium 1.5 L Total Bilirubin 1.1 H AST 28 ALT 34 H Alkaline Phosphatase 78 D Total Protein 2.5 L D Albumin 1.4 L D Blood Type B Positive Antibody Screen NEGATIVE 05/23/22 05/23/22 05/23/22 20:00 20:07 21:14 MCV MCH MCHC RDW Plt Count MPV Immature Gran % (Auto) Neut % (Auto) Lymph % (Auto) [place] % (Auto) Eos % (Auto) Baso % (Auto) Lymph # (Auto) [place] # (Auto) Eos # (Auto) Baso # (Auto) Abs Immat Gran (auto) Absolute Neuts (auto) Absolute Nucleated RBC Nucleated RBC % (auto) Neutrophils % (Manual) Band Neutrophils % Lymphocytes % (Manual) Monocytes % (Manual) Metamyelocytes % Myelocytes % Promyelocytes % Abs Neuts (Manual) Lymphocytes # (Manual) Monocytes # (Manual) Metamyelocytes # Myelocytes # Promyelocytes # Nucleated RBCs Smudge Cells Toxic Vacuolation Dohle Bodies Platelet Estimate Large Platelets Plt Morphology Comment RBC Morphology Polychromasia Macrocytosis Ovalocytes O2 Saturation 95.0 ABG pH at Pt Temp 7.29 L ABG pCO2 at Pt Temp 27 L ABG pO2 at Pt Temp 79 L ABG HCO3 13 L ABG Base Excess (Actual) -11.4 VBG pH 7.28 L VBG pCO2 32 VBG pO2 55 VBG HCO3 15 L VBG O2 Saturation 82.0 VBG Base Excess -10.1 Anion Gap Estim Creat Clear Calc Estimated GFR Random Glucose Lactic Acid 5.7 H* Lactic Acid F/U @ 2Hr Lactic Acid F/U @ 4Hr Calcium Phosphorus Magnesium Total Bilirubin AST ALT Alkaline Phosphatase Total Protein Albumin Blood Type Antibody Screen 05/23/22 05/24/22 05/24/22 22:22 01:00 01:00 MCV 87.4 MCH 29.9 MCHC 34.2 RDW 13.7 Plt Count 334 MPV 10.0 Immature Gran % (Auto) Cancelled Neut % (Auto) Cancelled Lymph % (Auto) Cancelled [place] % (Auto) Cancelled Eos % (Auto) Cancelled Baso % (Auto) Cancelled Lymph # (Auto) Cancelled [place] # (Auto) Cancelled Eos # (Auto) Cancelled Baso # (Auto) Cancelled Abs Immat Gran (auto) Cancelled Absolute Neuts (auto) Cancelled Absolute Nucleated RBC 0.110 H Nucleated RBC % (auto) 0.8 H Neutrophils % (Manual) 25 L Band Neutrophils % 41 H Lymphocytes % (Manual) 16 L Monocytes % (Manual) 8 Metamyelocytes % 7 Myelocytes % 3 Promyelocytes % Abs Neuts (Manual) 9.2 H Lymphocytes # (Manual) 2.2 Monocytes # (Manual) 1.1 Metamyelocytes # 1.0 Myelocytes # 0.4 Promyelocytes # Nucleated RBCs Smudge Cells PRES Toxic Vacuolation Dohle Bodies PRESENT Platelet Estimate SLIGHTLY INCREASED Large Platelets PRESENT Plt Morphology Comment NORMAL RBC Morphology NOTED Polychromasia 1+ (0-2) Macrocytosis 1+ (5-14) Ovalocytes 1+ (5-14) O2 Saturation ABG pH at Pt Temp ABG pCO2 at Pt Temp ABG pO2 at Pt Temp ABG HCO3 ABG Base Excess (Actual) VBG pH VBG pCO2 VBG pO2 VBG HCO3 VBG O2 Saturation VBG Base Excess Anion Gap 22 H Estim Creat Clear Calc 45.4 Estimated GFR 42 Random Glucose 188 H Lactic Acid Lactic Acid F/U @ 2Hr 6.4 H* Lactic Acid F/U @ 4Hr Calcium 7.1 L Phosphorus 5.7 H Magnesium 1.7 Total Bilirubin 1.3 H AST 24 ALT 28 Alkaline Phosphatase 58 D Total Protein 3.9 L D Albumin 2.9 L D Blood Type Antibody Screen 05/24/22 05/24/22 05/24/22 01:00 04:55 04:55 MCV 87.5 MCH 29.8 MCHC 34.0 RDW 13.6 Plt Count 275 MPV 10.4 Immature Gran % (Auto) Cancelled Neut % (Auto) Cancelled Lymph % (Auto) Cancelled [place] % (Auto) Cancelled Eos % (Auto) Cancelled Baso % (Auto) Cancelled Lymph # (Auto) Cancelled [place] # (Auto) Cancelled Eos # (Auto) Cancelled Baso # (Auto) Cancelled Abs Immat Gran (auto) Cancelled Absolute Neuts (auto) Cancelled Absolute Nucleated RBC 0.060 H Nucleated RBC % (auto) 0.3 H Neutrophils % (Manual) 37 L Band Neutrophils % 41 H Lymphocytes % (Manual) 15 L Monocytes % (Manual) 3 Metamyelocytes % 2 Myelocytes % 1 Promyelocytes % 1 Abs Neuts (Manual) 13.4 H Lymphocytes # (Manual) 2.6 Monocytes # (Manual) 0.5 Metamyelocytes # 0.3 Myelocytes # 0.2 Promyelocytes # 0.2 Nucleated RBCs 2 H Smudge Cells PRES Toxic Vacuolation PRESENT Dohle Bodies PRESENT Platelet Estimate NORMAL Large Platelets Plt Morphology Comment NORMAL RBC Morphology NOTED Polychromasia 1+ (0-2) Macrocytosis 1+ (5-14) Ovalocytes O2 Saturation ABG pH at Pt Temp ABG pCO2 at Pt Temp ABG pO2 at Pt Temp ABG HCO3 ABG Base Excess (Actual) VBG pH VBG pCO2 VBG pO2 VBG HCO3 VBG O2 Saturation VBG Base Excess Anion Gap 17 Estim Creat Clear Calc 45.4 Estimated GFR 42 Random Glucose 256 H Lactic Acid Lactic Acid F/U @ 2Hr Lactic Acid F/U @ 4Hr 5.6 H* Calcium 7.0 L Phosphorus 4.1 Magnesium Total Bilirubin 1.3 H AST 18 ALT 20 Alkaline Phosphatase 35 L D Total Protein 4.0 L Albumin 3.3 L Blood Type Antibody Screen 05/24/22 05/24/22 05:02 07:02 MCV MCH MCHC RDW Plt Count MPV Immature Gran % (Auto) Neut % (Auto) Lymph % (Auto) [place] % (Auto) Eos % (Auto) Baso % (Auto) Lymph # (Auto) [place] # (Auto) Eos # (Auto) Baso # (Auto) Abs Immat Gran (auto) Absolute Neuts (auto) Absolute Nucleated RBC Nucleated RBC % (auto) Neutrophils % (Manual) Band Neutrophils % Lymphocytes % (Manual) Monocytes % (Manual) Metamyelocytes % Myelocytes % Promyelocytes % Abs Neuts (Manual) Lymphocytes # (Manual) Monocytes # (Manual) Metamyelocytes # Myelocytes # Promyelocytes # Nucleated RBCs Smudge Cells Toxic Vacuolation Dohle Bodies Platelet Estimate Large Platelets Plt Morphology Comment RBC Morphology Polychromasia Macrocytosis Ovalocytes O2 Saturation 98.0 ABG pH at Pt Temp 7.40 ABG pCO2 at Pt Temp 32 ABG pO2 at Pt Temp 83 ABG HCO3 20 L ABG Base Excess (Actual) -3.3 VBG pH VBG pCO2 VBG pO2 VBG HCO3 VBG O2 Saturation VBG Base Excess Anion Gap Estim Creat Clear Calc Estimated GFR Random Glucose Lactic Acid 4.0 H* Lactic Acid F/U @ 2Hr Lactic Acid F/U @ 4Hr Calcium Phosphorus Magnesium Total Bilirubin AST ALT Alkaline Phosphatase Total Protein Albumin Blood Type Antibody Screen Procedures Date of Service Date of Service: 05/24/22 Arterial Line Size (Gauge): 16 Progress Note: A&P Assessment and plan (1) Perforated viscus: Status: Acute Assessment and Plan: Status post sigmoid resection, end-colostomy abdominal washout for fecal peritonitis ICU care Anticipate ileus and likely complex postop course NG tube in place Await return of GI function IV antibiotics Urine output adequate so far Will update family Time Spent With Patient Time: Total time spent is greater than 50% in coordination of care (as documented) at patient's floor/unit and/or counseling patient: Quality Stroke Does the patient have a stroke diagnosis?: No VTE Prior VTE?: No VTE Risk Level:: Medical - moderate - high VTE Device Contraindication: N/A - Device Ordered VTE Drug Contraindication: N/A - Med Ordered
[2022-05-24] MEDS: propofoL 1,000 MG/100 ML VIAL 14.36 MG IVCONT ×3 (07:56→20:22)
[2022-05-24] MEDS: DOBUTamine HCL/D5W 500 MG/250 ML IV.SOLN IVCONT (10:23)
[2022-05-24] MEDS: Topiramate 100 MG TABLET 200 MG PO ×2 (10:23→20:00)
--- NOTE | 2022-05-24 11:14 | CA_ITS ---
Transthoracic Echocardiogram Patient (Last, First, Middle): Ju Hankins, Gender: Female Date of : 1960 Age: 62 Procedure Date: 05/24/2022 Procedure Type: Transthoracic Echocardiogram Location: ICU Height: 160.02 cm Weight: 79.38 kg BSA: 1.83 m2 Heart Rate: bpm BP: 101 / 45 mmHg Psychologist Research Assistant: TO Referring MD: Vu Wilkerson MD Dukey Rider: Sheldon Marinelli MD Symptoms: refractory shock Study Quality: Technically Difficult/Contrast/Vent ECG Rhythm: Sinus Conclusions: - 1. Technically very limited study due to off axis views due to patient's clinical condition 2. LV systolic function appears preserved on multiple views with LVEF of 55-60% with possible normal diastolic filling pattern 3. RV systolic function appears to be preserved 4. Poor with realization of cardiac valves with normal cardiac valvular Doppler 5. IVC size is normal 6. There is no significant pericardial effusion Findings Procedure Information Contrast agent, definity, is being given per protocol without apparent complications. Left Ventricle The left ventricle was not well visualized. Normal left ventricular cavity size. The left ventricular systolic function is normal. The visually estimated ejection fraction is between 55-60%. Regional wall motion abnormalities can not be excluded due to suboptimal endocardial definition. Spectral Doppler is indicative of a normal filling pattern. Right Ventricle The right ventricle was not well visualized. on off axis views RV may be mildly enlarged. However by TAPSE the RV systolic function appears to be preserved Atria The left atrium was not well visualized. Interatrial shunt cannot be excluded. The right atrium was not well visualized. Aortic Valve The aortic valve was not well visualized. There is no aortic valve stenosis. There is no aortic valve regurgitation. Mitral Valve The mitral valve was not well visualized. There is trace mitral valve regurgitation. There is no mitral valve stenosis. Pulmonic Valve The pulmonic valve was not well visualized. Tricuspid Valve The tricuspid valve was not well visualized. Tricuspid regurgitation envelope is inadequate for calculation of right ventricular systolic pressure. Great Vessels The aorta was not well visualized. The pulmonary artery was not well visualized. Venous The inferior vena cava is normal in size. Pericardium/Pleural there is no significant pericardial effusion that could explain shock like picture Prior Study Comparison No prior study available for comparison. Measurements 2D Linear Measurements IVSd: 0.91 0.6-0.9/0.6-1.0 cm LVIDd: 3.14 3.9-5.3/4.2-5.9 cm LVIDd Index: 1.72 2.4-3.2/2.2-3.1 cm/m2 LVIDs: 1.86 2.0-3.6 cm LVPWd: 0.92 0.7-1.1 cm LA Diam: 3.20 2.7-3.8/3.0-4.0 cm LAIDs Index: 1.75 1.5-2.3 cm/m2 LV Mass: 95.63 67-162/88-224 g LV Mass Index: 52.26 43-95/49-115 g/m2 LVOT Diam: 2.10 3.0+(-)1.3 cm Mitral Valve MV Pk E: 0.60 MV PK A: 0.58 MV Decel Time: 114.00 E/A: 1.00 E'Lateral: 5.33 E'Medial: 4.24 E/E' Med: 14.10 E/E' Lat: 11.20 PHT: 33.00 MVA PHT: 6.67 Decel Carter: 5.24 Aortic Valve AoV Pk Ramón: 1.19 AoV Mn Ramón: 0.91 AoV VTI: 0.14 AoV Pk Grad: 6.00 Aov Mn Grad: 4.00 EVER Cont.VTI: 2.30 LVOT LVOT Pk Ramón: 0.84 LVOT Mn Ramón: 0.57 LVOT VTI: 0.09 LVOT Pk Grad: 3.00 LVOT Mn Grad: 2.00 LVOT Diam: 2.10 LVOT Area: 3.46 Diastolic Function MV Pk E: 0.60 MV Pk A: 0.58 E/A: 1.00 E'Medial: 4.24 E/E' Med: 14.10 E' Laterial: 5.33 E/E' Lat: 11.20 Right Ventricle TAPSE (mm): 20.70 TVS' Ramón: 14.30 Tricuspid Valve RA Press: 8.00 Great Vessels Aorta Sinus of Valsalva: 3.12 2.0-3.5 cm Ao Asc: 2.70 2.1-3.4 cm Updated in Other Vendor System with Status of Final Sheldon Marinelli MD electronically signed on 05/24/2022 4:46:29 PM with status of Final
--- NOTE | 2022-05-24 11:23 | P.PNCC_ITS ---
Subjective Subjective Date of Service: 05/24/22 Interval History: Mrs. Hankins was transferred to the ICU yesterday afternoon directly from the OR still intubated after emergency E-lap, sigmoid resection and colostomy for perforated viscus. The patient is a 62 year old female with history of Crohn's disease who presented ambulatory to the ED on May 18 complaining of 2 weeks of abdominal pain.? She was being treated with prednisone for a presumed flare up.? On the morning of presentation, she developed sudden onset of sharp pain.? Initial CT scan suggested severe constipation and a question of partial obstruction with worsening severe colitis of the sigmoid colon and proctitis, with increased wall thickening.? There was no evidence of free air.? She was treated with opiates and Zosyn.? The patient was admitted to Medicine and started on systemic steroids. ?Lactic acid was normal on May 19. The patient had no relief with tx.? She underwent flex sig by Dr. Peralta yesterday at which he found a large abscess cavity in the sigmoid with some associated ulceration, stool, and a second area of ulceration, which was biopsied.? Post procedure the patient had significant worsening of her abdominal exam; stat ct showed free air and fluid with a pelvic abscess posterior to the uterus. ?She was taken directly to the OR. At laparotomy, found a large perforation in the distal sigmoid, with two large stool balls immediately adjacent to the perforation.? There was extensive peritoneal fecal soilage, w marked indurated peritonitis especially in the pelvis, with the sigmoid folded upon itself covered in thick inflammatory rind.? She underwent extensive lysis of adhesions, sigmoid resection and colostomy, and abdominal washout.? The abdomen was closed and the patient was brought out intubated to ICU. The anesthetic course was marked by initial mild hypotension, with progressive tachycardia as the operation went on, and then progressive hypotension, ultimate ly requiring Levophed.? Intraop blood loss was minimal; she was given 2.5 L of crystalloid. On arrival to the ICU, the patient was in deep shock, and markedly hypovolemic.? Echo showed normal right and left heart, with hyperdynamic function and small IVC.? The patient was volume resuscitated, with excellent hemodynamic response. ?A central line and arterial line were placed. Overnight last night, volume resuscitation continued and the patient was put on a bicarbonate drip.? Urine output was borderline but adequate. ?Creatinine last nite bumped to 1.3 (from 0.7), but has risen no further.? Lactate peaked at 6.4 and was down to 4.0 this morning.? Hb lakshmi from 10 to 12 last night, but this morning is back down to 10. This morning she?s moderately sedated on propofol 30ug and fentanyl 100ug.? Breathing above thes set ventilator rate.? HR 103, BP about 120/65 on Levophed 0.5ug.? Echo (below) suggested low-normal EF so I tried low dose dobutamine, which dropped her BP into the 90?s, so we d/c?d it.? On AC 14/400/30%/+5, RR is 17, Ve 7.4L, PIP 17cm, ETCO2 28mm, Sat 94%. ?ABG this morning 7.40/32/83/-3 (on the bicarb drip).? Normothermic.? PER, about 3mm.? No JVD at 30?.? Chest CTA with normal exp phase.? RRR, normal-sounding S1 and S2, no murmur or gallops.? Abdomen mildly obese, but doesn?t look distended.? No BS.? The stoma looks good; no output.? The belly is soft.? Mild generalized edema. LABORATORY DATA: Below.? Notably, BUN/creatinine 17/1.3 this morning, bicarb 20 (on the bicarb drip), potassium 2.9, random glucose 256, Phosphorus 4.1, T bili 1.3, normal transaminases, albumin 3.3 (after multiple doses of albumin overnight).? Repeat lactate at noon down to 3.5. Repeat bedside ECHOCARDIOGRAM this morning:? Difficult study.? Both left and right ventricles look normal sized.? LV EF looks low-normal, about 50%.? All valves look structurally normal.? No AI or .? No MR or TR by color sergey.? TV CWD about 1.5 m/sec. ?IVC view very difficult, maybe about 1.5 cm with no insp collapse. CXR from last night shows strikingly low lung vols IMPRESSION: 1. Perf?d viscus w fecal peritonitis.? This was obviously ?chronic?, not acute. 2. Septic shock.? 2? above.? Still in shock but lactic acid is coming down.? Levophed dose coming down.? Adequately resuscitated. 3. Hypovolemia.? I think she?s adequately volume resusc at this point.? The techs will come up and echo her to get a better view of her IVC. 4. Acute resp failure.? All things considered, she?s doing well.? Bec of her low lung vols, we?ll put her PEEP up to 8cm. 5. ID:? On renally adjusted meropenem. 6. SABINE.? 2? septic shock and hypovolemia.? Adequately volume resuscitated at this point. 7. Hypokalemia.? Continue repletion. 8. Hyperglycemia.? Start SS insulin. Spoke with the patien?ts at some length re her condition and treatment.? D/W Dr. Hagan and Dr. Peralta.? Mult d/w pharmacy.? Multiple visits to the bedside. Critical care time:? 75+ min. Critical Care Time (minutes): 75 Physical Exam Vital Signs: Vital Signs: Last Vital Signs Temp 98.5 F 05/24/22 08:00 Pulse 104 H 05/24/22 11:00 Resp 14 05/24/22 11:00 BP 103/49 L 05/24/22 11:00 Pulse Ox 95 05/24/22 11:00 O2 Del Method 05/24/22 11:00 O2 Flow Rate 3 05/23/22 14:38 FiO2 40 05/24/22 11:00 BMI result Body Mass Index 31.1 Objective Data Labs CBC & Chem 7: 05/24/22 04:55 05/24/22 12:00 Labs: Laboratory Results - last 24 hr 05/23/22 05/23/22 05/23/22 15:31 20:00 20:00 WBC 11.3 H RBC 4.23 Hgb 12.5 Hct 37.6 MCV 88.9 MCH 29.6 MCHC 33.2 RDW 13.8 Plt Count 274 D MPV 10.2 Immature Gran % (Auto) Neut % (Auto) Lymph % (Auto) [place] % (Auto) Eos % (Auto) Baso % (Auto) Lymph # (Auto) [place] # (Auto) Eos # (Auto) Baso # (Auto) Abs Immat Gran (auto) Absolute Neuts (auto) Absolute Nucleated RBC 0.050 H Nucleated RBC % (auto) 0.4 H Neutrophils % (Manual) Band Neutrophils % Lymphocytes % (Manual) Monocytes % (Manual) Metamyelocytes % Myelocytes % Promyelocytes % Abs Neuts (Manual) Lymphocytes # (Manual) Monocytes # (Manual) Metamyelocytes # Myelocytes # Promyelocytes # Nucleated RBCs Smudge Cells Toxic Vacuolation Dohle Bodies Platelet Estimate Large Platelets Plt Morphology Comment RBC Morphology Polychromasia Macrocytosis Ovalocytes O2 Saturation ABG pH at Pt Temp ABG pCO2 at Pt Temp ABG pO2 at Pt Temp ABG HCO3 ABG Base Excess (Actual) VBG pH VBG pCO2 VBG pO2 VBG HCO3 VBG O2 Saturation VBG Base Excess Sodium 141 Potassium 3.4 Chloride 113 H Carbon Dioxide 15 L Anion Gap 16 BUN 14 Creatinine 0.78 Estim Creat Clear Calc 75.7 Estimated GFR > 60 Random Glucose 158 H Lactic Acid Lactic Acid F/U @ 2Hr Lactic Acid F/U @ 4Hr Calcium 6.9 L D Phosphorus 6.1 H Magnesium 1.5 L Total Bilirubin 1.1 H AST 28 ALT 34 H Alkaline Phosphatase 78 D Total Protein 2.5 L D Albumin 1.4 L D Blood Type B Positive Antibody Screen NEGATIVE 05/23/22 05/23/22 05/23/22 20:00 20:07 21:14 WBC RBC Hgb Hct MCV MCH MCHC RDW Plt Count MPV Immature Gran % (Auto) Neut % (Auto) Lymph % (Auto) [place] % (Auto) Eos % (Auto) Baso % (Auto) Lymph # (Auto) [place] # (Auto) Eos # (Auto) Baso # (Auto) Abs Immat Gran (auto) Absolute Neuts (auto) Absolute Nucleated RBC Nucleated RBC % (auto) Neutrophils % (Manual) Band Neutrophils % Lymphocytes % (Manual) Monocytes % (Manual) Metamyelocytes % Myelocytes % Promyelocytes % Abs Neuts (Manual) Lymphocytes # (Manual) Monocytes # (Manual) Metamyelocytes # Myelocytes # Promyelocytes # Nucleated RBCs Smudge Cells Toxic Vacuolation Dohle Bodies Platelet Estimate Large Platelets Plt Morphology Comment RBC Morphology Polychromasia Macrocytosis Ovalocytes O2 Saturation 95.0 ABG pH at Pt Temp 7.29 L ABG pCO2 at Pt Temp 27 L ABG pO2 at Pt Temp 79 L ABG HCO3 13 L ABG Base Excess (Actual) -11.4 VBG pH 7.28 L VBG pCO2 32 VBG pO2 55 VBG HCO3 15 L VBG O2 Saturation 82.0 VBG Base Excess -10.1 Sodium Potassium Chloride Carbon Dioxide Anion Gap BUN Creatinine Estim Creat Clear Calc Estimated GFR Random Glucose Lactic Acid 5.7 H* Lactic Acid F/U @ 2Hr Lactic Acid F/U @ 4Hr Calcium Phosphorus Magnesium Total Bilirubin AST ALT Alkaline Phosphatase Total Protein Albumin Blood Type Antibody Screen 05/23/22 05/24/22 05/24/22:22 01:00 01:00 WBC 13.9 H RBC 4.12 L Hgb 12.3 Hct 36.0 L MCV 87.4 MCH 29.9 MCHC 34.2 RDW 13.7 Plt Count 334 MPV 10.0 Immature Gran % (Auto) Cancelled Neut % (Auto) Cancelled Lymph % (Auto) Cancelled [place] % (Auto) Cancelled Eos % (Auto) Cancelled Baso % (Auto) Cancelled Lymph # (Auto) Cancelled [place] # (Auto) Cancelled Eos # (Auto) Cancelled Baso # (Auto) Cancelled Abs Immat Gran (auto) Cancelled Absolute Neuts (auto) Cancelled Absolute Nucleated RBC 0.110 H Nucleated RBC % (auto) 0.8 H Neutrophils % (Manual) 25 L Band Neutrophils % 41 H Lymphocytes % (Manual) 16 L Monocytes % (Manual) 8 Metamyelocytes % 7 Myelocytes % 3 Promyelocytes % Abs Neuts (Manual) 9.2 H Lymphocytes # (Manual) 2.2 Monocytes # (Manual) 1.1 Metamyelocytes # 1.0 Myelocytes # 0.4 Promyelocytes # Nucleated RBCs Smudge Cells PRES Toxic Vacuolation Dohle Bodies PRESENT Platelet Estimate SLIGHTLY INCREASED Large Platelets PRESENT Plt Morphology Comment NORMAL RBC Morphology NOTED Polychromasia 1+ (0-2) Macrocytosis 1+ (5-14) Ovalocytes 1+ (5-14) O2 Saturation ABG pH at Pt Temp ABG pCO2 at Pt Temp ABG pO2 at Pt Temp ABG HCO3 ABG Base Excess (Actual) VBG pH VBG pCO2 VBG pO2 VBG HCO3 VBG O2 Saturation VBG Base Excess Sodium 144 Potassium 3.8 Chloride 110 H Carbon Dioxide 16 L Anion Gap 22 H BUN 16 Creatinine 1.30 Estim Creat Clear Calc 45.4 Estimated GFR 42 Random Glucose 188 H Lactic Acid Lactic Acid F/U @ 2Hr 6.4 H* Lactic Acid F/U @ 4Hr Calcium 7.1 L Phosphorus 5.7 H Magnesium 1.7 Total Bilirubin 1.3 H AST 24 ALT 28 Alkaline Phosphatase 58 D Total Protein 3.9 L D Albumin 2.9 L D Blood Type Antibody Screen 05/24/22 05/24/22 05/24/22 01:00 04:55 04:55 WBC 17.2 H RBC 3.36 L Hgb 10.0 L Hct 29.4 L MCV 87.5 MCH 29.8 MCHC 34.0 RDW 13.6 Plt Count 275 MPV 10.4 Immature Gran % (Auto) Cancelled Neut % (Auto) Cancelled Lymph % (Auto) Cancelled [place] % (Auto) Cancelled Eos % (Auto) Cancelled Baso % (Auto) Cancelled Lymph # (Auto) Cancelled [place] # (Auto) Cancelled Eos # (Auto) Cancelled Baso # (Auto) Cancelled Abs Immat Gran (auto) Cancelled Absolute Neuts (auto) Cancelled Absolute Nucleated RBC 0.060 H Nucleated RBC % (auto) 0.3 H Neutrophils % (Manual) 37 L Band Neutrophils % 41 H Lymphocytes % (Manual) 15 L Monocytes % (Manual) 3 Metamyelocytes % 2 Myelocytes % 1 Promyelocytes % 1 Abs Neuts (Manual) 13.4 H Lymphocytes # (Manual) 2.6 Monocytes # (Manual) 0.5 Metamyelocytes # 0.3 Myelocytes # 0.2 Promyelocytes # 0.2 Nucleated RBCs 2 H Smudge Cells PRES Toxic Vacuolation PRESENT Dohle Bodies PRESENT Platelet Estimate NORMAL Large Platelets Plt Morphology Comment NORMAL RBC Morphology NOTED Polychromasia 1+ (0-2) Macrocytosis 1+ (5-14) Ovalocytes O2 Saturation ABG pH at Pt Temp ABG pCO2 at Pt Temp ABG pO2 at Pt Temp ABG HCO3 ABG Base Excess (Actual) VBG pH VBG pCO2 VBG pO2 VBG HCO3 VBG O2 Saturation VBG Base Excess Sodium 141 Potassium 2.9 L D Chloride 107 Carbon Dioxide 20 L Anion Gap 17 BUN 17 H Creatinine 1.30 Estim Creat Clear Calc 45.4 Estimated GFR 42 Random Glucose 256 H Lactic Acid Lactic Acid F/U @ 2Hr Lactic Acid F/U @ 4Hr 5.6 H* Calcium 7.0 L Phosphorus 4.1 Magnesium Total Bilirubin 1.3 H AST 18 ALT 20 Alkaline Phosphatase 35 L D Total Protein 4.0 L Albumin 3.3 L Blood Type Antibody Screen 05/24/22 05/24/22 05:02 07:02 WBC RBC Hgb Hct MCV MCH MCHC RDW Plt Count MPV Immature Gran % (Auto) Neut % (Auto) Lymph % (Auto) [place] % (Auto) Eos % (Auto) Baso % (Auto) Lymph # (Auto) [place] # (Auto) Eos # (Auto) Baso # (Auto) Abs Immat Gran (auto) Absolute Neuts (auto) Absolute Nucleated RBC Nucleated RBC % (auto) Neutrophils % (Manual) Band Neutrophils % Lymphocytes % (Manual) Monocytes % (Manual) Metamyelocytes % Myelocytes % Promyelocytes % Abs Neuts (Manual) Lymphocytes # (Manual) Monocytes # (Manual) Metamyelocytes # Myelocytes # Promyelocytes # Nucleated RBCs Smudge Cells Toxic Vacuolation Dohle Bodies Platelet Estimate Large Platelets Plt Morphology Comment RBC Morphology Polychromasia Macrocytosis Ovalocytes O2 Saturation 98.0 ABG pH at Pt Temp 7.40 ABG pCO2 at Pt Temp 32 ABG pO2 at Pt Temp 83 ABG HCO3 20 L ABG Base Excess (Actual) -3.3 VBG pH VBG pCO2 VBG pO2 VBG HCO3 VBG O2 Saturation VBG Base Excess Sodium Potassium Chloride Carbon Dioxide Anion Gap BUN Creatinine Estim Creat Clear Calc Estimated GFR Random Glucose Lactic Acid 4.0 H* Lactic Acid F/U @ 2Hr Lactic Acid F/U @ 4Hr Calcium Phosphorus Magnesium Total Bilirubin AST ALT Alkaline Phosphatase Total Protein Albumin Blood Type Antibody Screen Microbiology Microbiology Results: Microbiology 05/19/22 08:49 Blood - Venous Blood Culture - Final No growth after 5 days. 05/19/22 08:49 Blood - Venous Blood Culture - Final No growth after 5 days. 05/23/22 Unknown Peritoneal Fluid Routine Culture - Preliminary Quality Stroke Does the patient have a stroke diagnosis?: No VTE Prior VTE?: No VTE Risk Level:: Medical - moderate - high VTE Device Contraindication: N/A - Device Ordered VTE Drug Contraindication: N/A - Med Ordered Critical Care Time Critical Care Time (minutes): 90
--- NOTE | 2022-05-24 11:39 | HO.POSTANES ---
Post Anesthesia Evaluation Post Anesthesia Evaluation Vital Signs: Vital Signs Temp Pulse Resp BP Pulse Ox O2 Del Method FiO2 05/24/22 11:24 30 05/24/22 07:50 30 05/24/22 07:46 30 05/24/22 11:00 104 H 14 103/49 L 95 Mechanical Ventilation 40 05/24/22 10:00 105 H 14 120/47 L 96 Mechanical Ventilation 40 05/24/22 09:00 110 H 16 106/59 L 94 Mechanical Ventilation 40 05/24/22 08:00 98.5 F 112 H 15 125/73 95 Mechanical Ventilation 40 05/24/22 07:00 111 H 13 125/70 95 Mechanical Ventilation 40 05/24/22 05:59 110 H 99/60 05/24/22 04:45 40 05/24/22 04:00 40 05/24/22 03:00 99.4 F 114 H 22 H 134/71 95 Mechanical Ventilation 50 05/24/22 02:47 132/70 05/24/22 00:00 50 05/24/22 00:23 50 05/24/22 06:00 111 H 21 H 107/64 93 Mechanical Ventilation 40 05/24/22 05:00 111 H 16 112/64 95 40 05/24/22 04:00 112 H 16 113/64 94 Mechanical Ventilation 40 05/24/22 02:00 107 H 19 134/72 97 Mechanical Ventilation 50 05/24/22 01:00 106 H 15 125/73 97 Mechanical Ventilation 50 05/24/22 00:00 112 H 14 102/64 93 Mechanical Ventilation 50 Anesthesia: General Endotracheal-GETA (patient still intubated) Mental Status: Sedated Pain Control: Satisfactory Nausea/Vomiting: None Hydration: Adequate Anesthesia-Related Issues: No Anes. Related Issues Comments: still on levofed 0.6
[2022-05-24 12:15] LABS: ABG Base Excess 0.4 mmol/L; ABG HCO3 23 mmol/L (22-26); ABG pCO2 31 mmHg (32-45); ABG pH 7.47 (7.35-7.45); ABG pO2 88 mmHg (83-108)
--- NOTE | 2022-05-24 12:19 | MHC.CLN ---
DISCUSSED PT'S PLAN WITH MD TO START TPN RECOMMEND [id number] AT 35ML/HR TO PROVIDE 596KCALS, 42G PROTEIN DISCUSSED WITH PHARMACY REPLETE LYTES NEEDED
[2022-05-24 12:41] LABS: B Type Natriuretic Peptide 3497 pg/mL (<100)
[2022-05-24 13:05] LABS: Anion Gap 16 (12-20); Blood Urea Nitrogen 18 mg/dL (9-16); Carbon Dioxide 23 mmol/L (22-29); Chloride 107 mmol/L (96-108); Creatinine Clr Calc Pharmacy 46.8; Estimated Glomerular Filt Rate 43; Glucose Random 270 mg/dL (60-115); Magnesium 2.2 mg/dL (1.6-2.6); Potassium 2.9 mmol/L (3.3-5.1); Sodium 143 mmol/L (135-145)
[2022-05-24 13:29] LABS: Lactic Acid 3.5 mmol/L (0.5-2.0)
[2022-05-24 13:41] LABS: Cancel Lactic Acid Canceled
--- NOTE | 2022-05-24 16:03 | P.CNID_ITS ---
History of Present Illness Data of Consult Service Date: 05/24/22 Requesting physician: Maria Luz Rivero Primary Care Provider: Deandre Younger MD HPI Reason for consult: fecal peritonitis,septic shock She presents on 05/18 with worsening 9/10 abdominal pain. She had symptoms starting over two weeks and thought to be Crohns exacerbation and given steroids. She had CT scan ?SBO and no free air. She has no fever or chills. Dr Peralta of GI did flex sig and found to have abscess She then had perforation and went to OR and had sigmoid resection and colostomy. Review of Systems Review of Systems: Yes all other systems are reviewed and are negative PMFSH Past Medical History Medical History (Updated 05/24/22 @ 16:07 by Puja Nielsen MD) Arthritis Back pain Carpal tunnel syndrome COVID-19 vaccine series completed Crohn's disease Environmental allergies Fibromyalgia GERD (gastroesophageal reflux disease) Herniated cervical disc Hx of migraines Iron deficiency anemia Perforated viscus PONV (postoperative nausea and vomiting) Shock Thoracic disc herniation Vitamin D deficiency Functional capacity: independent ambulation Family History Family history: reviewed and not pertinent Surgical History Surgical History History of esophagogastroduodenoscopy (EGD) History of surgery History of tonsillectomy History of tubal ligation Hx of cholecystectomy Hx of colonoscopy Hx of fusion of cervical spine Hx of shoulder surgery Social History Social History Household Members: Spouse Housing: House Are you a primary floor care specialist to a significant other at home: No Do you presently have visiting nurse or other home services: No Alcohol intake: never Patient Tobacco Use Status: Never used Tobacco Tobacco use type: Cigarette Advance Directives Date on File: 06/23/20 service: No Current occupational status: employed Meds Allergies Allergy/AdvReac Type Severity Reaction Status Date / Time omeprazole [OMEPRAZOLE] Allergy Severe N/V Verified 01/29/22 15:10 tramadol [From Ultram] Allergy Intermediate ITCHING Verified 01/29/22 15:10 ibuprofen [From Motrin] Allergy Unknown Verified 05/18/22 09:23 Active Medications: Current Medications Fentanyl (Fentanyl Citrate/Pf 100 Mcg/2 Ml Vial) 100 mcg IVPUSH Q5M PRN; P rotocol PRN Reason: short term pain or WOB Hydrocortisone Sodium Succinate (Hydrocortisone Sod Succ/Pf 100 Mg Vial) 50 mg IVPUSH Q12H [facility] Last Admin: 05/24/22 06:02 Dose: 50 mg Hydromorphone HCl (Hydromorphone Hcl 1 Mg/Ml Syringe) 1 mg IVPUSH Q1H PRN; Protocol PRN Reason: mild pain Hydromorphone HCl (Hydromorphone Hcl 2 Mg/Ml Vial) 2 mg IVPUSH Q1H PRN; Pro tocol PRN Reason: severe pain Propofol (Diprivan) 1,000 mg in 100 mls @ 0 mls/hr IVCONT .Q0M [facility]; Protocol Last Admin: 05/24/22 15:31 Dose: 30 mcg/kg/min, 14.36 mls/hr Fentanyl (Sublimaze/Ns) 1,000 mcg in 100 mls @ 0 mls/hr IVCONT .Q0M [facility]; Protocol Last Admin: 05/24/22 08:49 Dose: 100 mcg/hr, 10 mls/hr Esmolol HCl (Brevibloc/Nacl) 2,500 mg in 250 mls @ 0 mls/hr IVCONT .Q0M [facility]; Protocol Last Admin: 05/23/22 18:33 Dose: 10 mcg/kg/min, 4.79 mls/hr Norepinephrine Bitartrate (Levophed) 8 mg in 250 mls @ 0 mls/hr IVCONT .Q0M [facility]; Protocol Last Admin: 05/24/22 15:28 Dose: 0.4 mcg/kg/min, 59.85 mls/hr Meropenem 1 gm/ Sodium (Chloride) 100 mls @ 200 mls/hr IV Q12H [facility] Last Infusion: 05/24/22 09:45 Dose: Infused Multivitamins 12 ml/ Trace Metals 1.2 ml/ Amino Acids/Electrolytes 840 mls @ 35 mls/hr IV DAILY@1800 [facility] Stop: 05/25/22 17:59 Potassium Chloride (Potassium Chloride/H20) 40 meq in 100 mls @ 25 mls/hr IV ONCE@1630 ONE Stop: 05/24/22 20:29 Insulin Human Lispro (Insulin Lispro 100 Unit/Ml 3 Ml Vial) 0 unit SUBCUT Q6H [facility]; Protocol Pharmacy Consult (Consult Rx Perform Med Rec) 1 each MISCELLANE ONCE PRN PRN Reason: Consult order Sodium Chloride (0.9 % Sodium Chloride Flush 3 Ml Syringe) 3 ml IVFLUSH QSHIFT [facility] Last Admin: 05/24/22 14:18 Dose: Not Given Topiramate (Topiramate 100 Mg Tablet) 200 mg PO BID [facility] Last Admin: 05/24/22 10:23 Dose: 200 mg Venlafaxine HCl (Venlafaxine Hcl 25 Mg Tablet) 25 mg PO ONCE ONE Stop: 05/24/22 21:01 Venlafaxine HCl (Venlafaxine Hcl 25 Mg Tablet) 75 mg PO BEDTIME [facility] Home Medications Medication Instructions Recorded Confirmed Last Taken Type mesalamine 0.375 gram 1.5 g PO QAM 10/21/20 05/18/22 05/17/22 History capsule,extended release 24 hr (Apriso) methocarbamol 750 mg tablet 750 mg PO TID 10/21/20 05/18/22 05/17/22 History multivit with 1 tab PO DAILY 10/21/20 05/18/22 05/17/22 History yltwdxyj-htyp-CL-lutein 8 mg iron-400 mcg-300 mcg tablet (Centrum Silver Women) pantoprazole 40 mg tablet,delayed 40 mg PO BEDTIME 10/21/20 05/18/22 05/17/22 History release (Protonix) loratadine 10 mg tablet (Claritin) 10 mg PO DAILY 06/24/21 05/18/22 05/17/22 History duloxetine 60 mg capsule,delayed 1 cap PO BEDTIME 05/18/22 05/18/22 05/17/22 History release fremanezumab-vfrm 225 mg/1.5 mL 1.5 mg subcut Q30D 05/18/22 05/18/22 04/29/22 History subcutaneous syringe (Ajovy Syringe) ondansetron 8 mg disintegrating 1 tab PO DAILY PRN Nausea 05/18/22 05/18/22 Unknown History tablet rizatriptan 10 mg tablet 1 tab PO DAILY PRN Migraine 05/18/22 05/18/22 Unknown History Headache topiramate 100 mg tablet 2 tab PO BID 05/18/22 05/18/22 05/17/22 History Physical Exam Vital Signs: Vital Signs: Last Vital Signs Temp 98.3 F 05/24/22 12:00 Pulse 108 H 05/24/22 15:00 Resp 18 05/24/22 15:00 BP 96/54 L 05/24/22 15:00 Pulse Ox 93 05/24/22 15:00 O2 Del Method 05/24/22 15:00 O2 Flow Rate 3 05/23/22 14:38 FiO2 30 05/24/22 15:39 BMI result Body Mass Index 31.1 vented Const: General: cooperative HEENT: Head: Yes normal to inspection Face and sinus: Yes normal facial exam Mouth: Normal oral and palatal mucosa present Teeth and gingiva: dentition normal Eyes: General: appearance normal, both eyes and all related structures Pupils: Equal, round and reactive pupils present Resp: Effort & Inspection: normal respiratory effort Cardio: Rate: regular rate Rhythm: regular rhythm GI: Palpation (GI): Soft to palpation and nontender : General: Yes no CVA tenderness Back/Spine/Pelvis: Back: no CVA tenderness Skin: General skin exam: no rashes or lesions noted Neuro: General: moves all extremities Cranial nerves: Yes Equal, round and reactive pupils present Extrem: General: Yes normal to inspection Psych: Appearance: grossly normal Results Labs CBC & Chem 7: 05/24/22 04:55 05/24/22 12:00 Labs: Short CBC 05/23/22 05/24/22 05/24/22 Range/Units 20:00 01:00 04:55 WBC 11.3 H 13.9 H 17.2 H (4.8-10.8) X10*3/uL Hgb 12.5 12.3 10.0 L (12.0-16.0) g/dl Hct 37.6 36.0 L 29.4 L (37.0-47.0) % Plt Count 274 D 334 275 (160-400) X10*3/uL BMP 05/23/22 05/24/22 05/24/22 20:00 01:00 04:55 Sodium 141 144 141 Potassium 3.4 3.8 2.9 L D Chloride 113 H 110 H 107 Carbon Dioxide 15 L 16 L 20 L BUN 14 16 17 H Creatinine 0.78 1.30 1.30 Calcium 6.9 L D 7.1 L 7.0 L 05/24/22 12:00 Sodium 143 Potassium 2.9 L Chloride 107 Carbon Dioxide 23 BUN 18 H Creatinine 1.26 Calcium 7.0 L Liver Function 05/23/22 05/24/22 05/24/22 Range/Units 20:00 01:00 04:55 Total Bilirubin 1.1 H 1.3 H 1.3 H (0.0-1.0) mg/dL AST 28 24 18 (5-31) U/L ALT 34 H 28 20 (0-31) U/L Alkaline Phosphatase 78 D 58 D 35 L D (39-117) U/L Albumin 1.4 L D 2.9 L D 3.3 L (3.5-5.0) g/dL Microbiology Microbiology Results: Microbiology 05/23/22 Unknown Peritoneal Fluid Gram Stain - Final 05/23/22 Unknown Peritoneal Fluid Routine Culture - Preliminary Culture in progress. 05/23/22 Unknown Peritoneal Fluid Anaerobic Culture - Preliminary Culture in progress. 05/19/22 08:49 Blood - Venous Blood Culture - Final No growth after 5 days. 05/19/22 08:49 Blood - Venous Blood Culture - Final No growth after 5 days. Procedures Arterial Line Size (Gauge): 16 Assessment and Plan (1) Perforated viscus: Status: Acute (2) Colitis: Status: Acute (3) Acute proctitis: Status: Acute (4) Shock: Status: Acute She has fecal peritonitis She has gram negative and anerobes She has been in ICU. She also has immunosuppression with Crohns and steroids Plan Could use either Merem or piperacillin/tazobactam or Cefepime and metronidazole. Watch for fungal infection Duration to be determined,possible 14-21 days
[2022-05-24] MEDS: Potassium Chloride/H20 40 MEQ/100 ML PIGGYBACK 25 MEQ IV (16:22)
--- NOTE | 2022-05-24 17:00 | PM.GIPN ---
Subjective Subjective Date of Service: 05/24/22 Interval History: Ju is seen in the ICU, intubated and sedated following surgery Critical Care Time (minutes): 0 Physical Exam Vital Signs: Vital Signs: Last Vital Signs Temp 100.2 F 05/24/22 20:00 Pulse 116 H 05/24/22 20:00 Resp 24 H 05/24/22 20:00 BP 90/48 L 05/24/22 20:20 Pulse Ox 92 05/24/22 20:00 O2 Del Method 05/24/22 20:00 O2 Flow Rate 3 05/23/22 14:38 FiO2 30 05/24/22 20:00 Oxygen Flow Rate 30 05/24/22 18:19 BMI result Body Mass Index 31.1 GI: Other: abdomen is soft, dressings in place Objective Data Labs CBC & Chem 7: 05/24/22 04:55 05/24/22 12:00 Microbiology Microbiology Results: Microbiology 05/23/22 Unknown Peritoneal Fluid Gram Stain - Final 05/23/22 Unknown Peritoneal Fluid Routine Culture - Preliminary Culture in progress. 05/23/22 Unknown Peritoneal Fluid Anaerobic Culture - Preliminary Culture in progress. 05/19/22 08:49 Blood - Venous Blood Culture - Final No growth after 5 days. 05/19/22 08:49 Blood - Venous Blood Culture - Final No growth after 5 days. Procedures Date of Service Date of Service: 05/24/22 Arterial Line Size (Gauge): 16 Progress Note: A&P Assessment and plan (1) Perforated viscus: Status: Acute Assessment and Plan: eventful course noted, yesterday's operative findings reviewed. discussed with Drs. Thapa and Rhea The colonic perforation likely occurred sometime before admission, and the worsening colitis findings described on the 05/18 CT were probably a reaction to an initial walled off perforation. Awaiting pathology results, ok to hold mesalamine and taper steroids quickly, as flex sig really did not show a Crohns picture. Although unusual, a stercoral process could be the underlying issue. Time Spent With Patient Time: Total time spent is greater than 50% in coordination of care (as documented) at patient's floor/unit and/or counseling patient: Quality Stroke Does the patient have a stroke diagnosis?: No VTE Prior VTE?: No VTE Risk Level:: Medical - moderate - high VTE Device Contraindication: N/A - Device Ordered VTE Drug Contraindication: N/A - Med Ordered
[2022-05-24 18:44] LABS: Glucose, Whole Blood 178 mg/dL (60-115)
[2022-05-24] MEDS: Insulin Lispro 100 UNIT/ML 3 ML VIAL SUBCUT ×2 (18:51→23:52)
[2022-05-24] MEDS: Venlafaxine HCL 25 MG TABLET PO (20:01)
[2022-05-24 21:20] LABS: VBG Base Excess 0.6 mmol/L; VBG HCO3 23 mmol/L (22-26); VBG pCO2 32 mmHg; VBG pH 7.46 (7.32-7.43); VBG pO2 98 mmHg
[2022-05-24 21:21] LABS: Hemoglobin 10.2 g/dl (12.0-16.0)
[2022-05-24 21:36] LABS: Anion Gap 15 (12-20); Blood Urea Nitrogen 21 mg/dL (9-16); Calcium 6.8 mg/dL (8.4-10.2); Carbon Dioxide 23 mmol/L (22-29); Chloride 111 mmol/L (96-108); Creatinine Clr Calc Pharmacy 37.1; Estimated Glomerular Filt Rate 33; Glucose Random 234 mg/dL (60-115); Lactic Acid 2.7 mmol/L (0.5-2.0); Potassium 3.6 mmol/L (3.3-5.1); Sodium 145 mmol/L (135-145)
[2022-05-24 22:30] LABS: Venous Blood Gas Refer to POC result
[2022-05-24 23:15] LABS: Reflex Lactate? Lactic Acid Added
[2022-05-24 23:33] LABS: Glucose, Whole Blood 202 mg/dL (60-115)
[2022-05-24] MEDS: Esmolol HCl/NaCl Iso 2,500 MG/250 ML IV.SOLN IVCONT (23:50)
[2022-05-25] VITALS (38 sets, daily range): BP systolic 89–149; BP diastolic 45–80; PULSE 92–120; RESP 13–26; TEMP 35–39.5; O2SAT 91–97; BMI 40.6
[2022-05-25] MEDS: Calcium Gluconate/NaCl,Iso-Osm 2 GM/100 ML PLAST..BAG IV (00:21)
[2022-05-25] MEDS: Acetaminophen Supp 650 MG SUPP.RECT PR (00:33)
[2022-05-25] MEDS: fentaNYL citrate/NS 1,000 MCG/100 ML PLAST..BAG 12.5 MCG IVCONT ×2 (01:47→09:13)
[2022-05-25] MEDS: propofoL 1,000 MG/100 ML VIAL 11.97 MG IVCONT ×2 (02:15→07:48)
[2022-05-25] MEDS: Acetaminophen Supp 325 MG SUPP.RECT PR (02:43)
[2022-05-25 05:17] LABS: ABG Base Excess 0.8 mmol/L; ABG HCO3 25 mmol/L (22-26); ABG pCO2 38 mmHg (32-45); ABG pH 7.42 (7.35-7.45); ABG pO2 92 mmHg (83-108)
[2022-05-25 05:19] LABS: ABG Refer to POC result
[2022-05-25 05:22] LABS: Hematocrit 24.5 % (37.0-47.0); Hemoglobin 8.3 g/dl (12.0-16.0); Mean Corpuscular HGB Conc 33.9 g/dl (31.0-35.0); Mean Corpuscular Volume 88.4 fL (80.0-98.0); Mean Platelet Volume 10.3 fL (9.4-12.3); NRBC Pct Auto 0.1 /100WBC (0.0-0.2); Platelet Count 143 X10*3/uL (160-400); Red Blood Count 2.77 X10*6/uL (4.20-5.50); Red Cell Distribution Width 14.1 % (11.0-16.0)
[2022-05-25 05:23] LABS: WBC ABN SCTR FOR CBC 1
[2022-05-25 05:27] LABS: Glucose, Whole Blood 175 mg/dL (60-115)
[2022-05-25 05:32] LABS: Lactic Acid 1.8 mmol/L (0.5-2.0)
[2022-05-25] MEDS: Insulin Lispro 100 UNIT/ML 3 ML VIAL SUBCUT ×2 (05:32→12:19)
[2022-05-25] MEDS: Pantoprazole Sodium 40 MG/10 ML VIAL IVPUSH (05:35)
[2022-05-25 05:38] LABS: Alanine Aminotransferase 14 U/L (0-31); Albumin Level 3.1 g/dL (3.5-5.0); Alkaline Phosphatase 36 U/L (39-117); Anion Gap 13 (12-20); Aspartate Amino Transferase 21 U/L (5-31); Bilirubin Total 0.9 mg/dL (0.0-1.0); Blood Urea Nitrogen 24 mg/dL (9-16); Calcium 7.4 mg/dL (8.4-10.2); Carbon Dioxide 25 mmol/L (22-29); Chloride 112 mmol/L (96-108); Estimated Glomerular Filt Rate 31; Glucose Random 219 mg/dL (60-115); Magnesium 2.3 mg/dL (1.6-2.6); Phosphorus 3.1 mg/dL (2.7-4.5); Potassium 3.5 mmol/L (3.3-5.1); Sodium 146 mmol/L (135-145); Total Protein 4.1 g/dL (6.5-8.0)
--- NOTE | 2022-05-25 05:49 | PC.NURSE ---
CARE ASSUMED 23:15...REMAAINS TUBED/VENTED ACVC SETTINGS...VENT SYNCHRONY MAINTAINED WITH PROPOFOL 25 MCG/KG/MIN & FENTANYL 125 MCG/HR...GRIMACES WITH POSITIONING AND CARE BUT OTHERWISE RESTFUL...OG-TUBE CLAMPED....ABDOMEN DISTENDED /FIRM AND SILENT ABDOMINAL DRESSING DRY/INTACT..COLOSTOMY WITH SCANT SEROUS DRAINAGE..NOHEMI DRAIN WITH MINIMAL DRAINAGE..FEBRILE OVERNIGHT...T-MAX 102.9...TYLENOL 650MG RECTAL GIVEN FOR TEMP 102.4...TYLENOL 350MG MI GIVEN AFTERWARDS PER PA FOR TEMP 102.9...CURRENTLY TEMP= 102.1....TACHYCARDIC S.TACH HR 124 WITH ELEVATED TEMP...ESMOLOL DRIP TITRATED FROM 10 TO 125 MCG/KG/MIN FOR HR GOAL 80 PER PA...BP MARGINAL...ESMOLOL WEANED TO 100 MCG/KG/MIN...LEVOPHED WEANED FROM 0.G TO 0.4 THEN BACK TO 0.5 MCG/KG/MIN..CURRENTLY AW=870/58...NSR HR 92-94....[place] 40-60 CC/HR...POST-OP FLUID BALANCE APPROX (+) 6 LITERS
[2022-05-25 05:53] LABS: Band Neutrophils Percent 16 % (3-5); Lymphocytes Percent Manual 22 % (20-40); Macrocytosis 1+ (5-14) /OIF; Monocytes Percent Manual 1 % (2-11); Neutrophils Percent Manual 61 % (45-73); Platelet Estimate SLIGHTLY DECREASED (NORMAL); Platelet Morphology Comment NORMAL; Polychromasia 1+ (0-2) /OIF; RBC Morphology NOTED
[2022-05-25 05:54] LABS: C Reactive Protein 43.83 mg/dL (< or = 0.50); Dohle Bodies PRESENT; Smudge Cells PRESENT
[2022-05-25 05:55] LABS: Lymphocytes Absolute Manual 4.4 X10*3/uL (1.2-4.9); Monocytes Absolute Manual 0.2 X10*3/uL (0.1-1.2); Neutrophils Absolute Manual 15.5 X10*3/uL (2.0-8.3); White Blood Count 20.1 X10*3/uL (4.8-10.8)
[2022-05-25] MEDS: Hydrocortisone Sod Succ/PF 100 MG VIAL 50 MG IVPUSH ×2 (06:03→17:43)
[2022-05-25] MEDS: Chlorhexidine Gluc Oral Rinse 15 ML MOUTHWASH BUCCAL ×3 (07:44→21:27)
[2022-05-25] MEDS: Esmolol HCl/NaCl Iso 2,500 MG/250 ML IV.SOLN 47.88 MG IVCONT ×2 (07:44→12:19)
[2022-05-25] MEDS: Potassium Chloride/H20 20 MEQ/100 ML PIGGYBACK 100 MEQ IV (07:45)
[2022-05-25] MEDS: Topiramate 100 MG TABLET 200 MG PO ×2 (07:47→21:27)
[2022-05-25] MEDS: 0.9 % Sodium Chloride Flush 3 ML SYRINGE IVFLUSH ×2 (07:47→14:32)
[2022-05-25] MEDS: Albumin Human 25 % 50 ML 100 ML IV (08:58)
--- NOTE | 2022-05-25 09:04 | PM.PNGS ---
Subjective Subjective Date of Service: 05/25/22 Interval history: Remains on the ventilator Still on Levophed No significant changes clinically since yesterday Physical Exam Vital Signs: Vital Signs: Last Vital Signs Temp 102.1 F H 05/25/22 06:00 Pulse 95 05/25/22 09:00 Resp 14 05/25/22 09:00 BP 96/52 L 05/25/22 09:00 Pulse Ox 94 05/25/22 09:00 O2 Del Method 05/25/22 09:00 O2 Flow Rate 3 05/23/22 14:38 FiO2 40 05/25/22 09:00 Oxygen Flow Rate 30 05/24/22 18:19 BMI result Body Mass Index 40.6 Const: Other: Sedated, on ventilator Resp: Other: On the ventilator Cardio: Rhythm: regular rhythm GI: Other: Soft, stoma without output, dusky but viable looking, dressings dry Objective Data Active Medications Chlorhexidine Gluconate (Chlorhexidine Gluc Oral Rinse 15 Ml Mouthwash) 15 ml BUCCAL TID [facility] Last Admin: 05/25/22 07:44 Dose: 15 ml Documented By: ISH Fentanyl (Fentanyl Citrate/Pf 100 Mcg/2 Ml Vial) 100 mcg IVPUSH Q5M PRN; Protocol PRN Reason: short term pain or WOB Hydrocortisone Sodium Succinate (Hydrocortisone Sod Succ/Pf 100 Mg Vial) 50 mg IVPUSH Q12H [facility] Last Admin: 05/25/22 06:03 Dose: 50 mg Documented By: LUIS Hydromorphone HCl (Hydromorphone Hcl 1 Mg/Ml Syringe) 1 mg IVPUSH Q1H PRN; Protocol PRN Reason: mild pain Hydromorphone HCl (Hydromorphone Hcl 2 Mg/Ml Vial) 2 mg IVPUSH Q1H PRN; Protocol PRN Reason: severe pain Propofol (Diprivan) 1,000 mg in 100 mls @ 0 mls/hr IVCONT .Q0M [facility]; Protocol Last Admin: 05/25/22 07:48 Dose: 25 mcg/kg/min, 11.97 mls/hr Documented By: ISH Fentanyl (Sublimaze/Ns) 1,000 mcg in 100 mls @ 0 mls/hr IVCONT .Q0M [facility]; Protocol Last Admin: 05/25/22 01:47 Dose: 125 mcg/hr, 12.5 mls/hr Documented By: LUIS Esmolol HCl (Brevibloc/Nacl) 2,500 mg in 250 mls @ 0 mls/hr IVCONT .Q0M [facility]; Protocol Last Admin: 05/25/22 07:44 Dose: 100 mcg/kg/min, 47.88 mls/hr Documented By: ISH Norepinephrine Bitartrate (Levophed) 8 mg in 250 mls @ 0 mls/hr IVCONT .Q0M [facility]; Protocol Last Titration: 05/25/22 06:57 Dose: 0.4 mcg/kg/min, 59.85 mls/hr Documented By: ISH Meropenem 1 gm/ Sodium (Chloride) 100 mls @ 200 mls/hr IV Q12H [facility] Last Infusion: 05/25/22 08:33 Dose: 0 mls/hr Documented By: ISH Multivitamins 12 ml/ Trace Metals 1.2 ml/ Amino Acids/Electrolytes 840 mls @ 35 mls/hr IV DAILY@1800 [facility] Stop: 05/25/22 17:59 Last Admin: 05/24/22 18:42 Dose: 35 mls/hr Documented By: ISH Insulin Human Lispro (Insulin Lispro 100 Unit/Ml 3 Ml Vial) 0 unit SUBCUT Q6H [facility]; Protocol Last Admin: 05/25/22 05:32 Dose: 2 unit Documented By: LUIS Pantoprazole Sodium (Pantoprazole Sodium 40 Mg/10 Ml Vial) 40 mg IVPUSH DAILY@0630 [facility] Last Admin: 05/25/22 05:35 Dose: 40 mg Documented By: LUIS Pharmacy Consult (Consult Rx Perform Med Rec) 1 each MISCELLANE ONCE PRN PRN Reason: Consult order Sodium Chloride (0.9 % Sodium Chloride Flush 3 Ml Syringe) 3 ml IVFLUSH QSHIFT [facility] Last Admin: 05/25/22 07:47 Dose: 3 ml Documented By: ISH Topiramate (Topiramate 100 Mg Tablet) 200 mg PO BID [facility] Last Admin: 05/25/22 07:47 Dose: 200 mg Documented By: ISH Venlafaxine HCl (Venlafaxine Hcl 25 Mg Tablet) 75 mg PO BEDTIME [facility] Labs CBC & Chem 7: 05/25/22 05:10 05/25/22 05:10 Labs: Laboratory Results - last 24 hr 05/24/22 05/24/22 05/24/22 11:59 12:00 12:00 MCV MCH MCHC RDW Plt Count MPV Immature Gran % (Auto) Neut % (Auto) Lymph % (Auto) [place] % (Auto) Eos % (Auto) Baso % (Auto) Lymph # (Auto) [place] # (Auto) Eos # (Auto) Baso # (Auto) Abs Immat Gran (auto) Absolute Neuts (auto) Absolute Nucleated RBC Nucleated RBC % (auto) Neutrophils % (Manual) Band Neutrophils % Lymphocytes % (Manual) Monocytes % (Manual) Abs Neuts (Manual) Lymphocytes # (Manual) Monocytes # (Manual) Smudge Cells Dohle Bodies Platelet Estimate Plt Morphology Comment RBC Morphology Polychromasia Macrocytosis O2 Saturation ABG pH at Pt Temp ABG pCO2 at Pt Temp ABG pO2 at Pt Temp ABG HCO3 ABG Base Excess (Actual) VBG pH VBG pCO2 VBG pO2 VBG HCO3 VBG O2 Saturation VBG Base Excess Anion Gap 16 Estim Creat Clear Calc 46.8 Estimated GFR 43 POC Glucose Random Glucose 270 H Lactic Acid 3.5 H* Calcium 7.0 L Phosphorus Magnesium 2.2 Total Bilirubin AST ALT Alkaline Phosphatase C-Reactive Protein B-Natriuretic Peptide 3497 H Total Protein Albumin 05/24/22 05/24/22 05/24/22 12:09 18:41 21:09 MCV MCH MCHC RDW Plt Count MPV Immature Gran % (Auto) Neut % (Auto) Lymph % (Auto) [place] % (Auto) Eos % (Auto) Baso % (Auto) Lymph # (Auto) [place] # (Auto) Eos # (Auto) Baso # (Auto) Abs Immat Gran (auto) Absolute Neuts (auto) Absolute Nucleated RBC Nucleated RBC % (auto) Neutrophils % (Manual) Band Neutrophils % Lymphocytes % (Manual) Monocytes % (Manual) Abs Neuts (Manual) Lymphocytes # (Manual) Monocytes # (Manual) Smudge Cells Dohle Bodies Platelet Estimate Plt Morphology Comment RBC Morphology Polychromasia Macrocytosis O2 Saturation 99.0 ABG pH at Pt Temp 7.47 H ABG pCO2 at Pt Temp 31 L ABG pO2 at Pt Temp 88 ABG HCO3 23 ABG Base Excess (Actual) 0.4 VBG pH VBG pCO2 VBG pO2 VBG HCO3 VBG O2 Saturation VBG Base Excess Anion Gap 15 Estim Creat Clear Calc 37.1 Estimated GFR 33 POC Glucose 178 H Random Glucose 234 H Lactic Acid Calcium 6.8 L Phosphorus Magnesium Total Bilirubin AST ALT Alkaline Phosphatase C-Reactive Protein B-Natriuretic Peptide Total Protein Albumin 05/24/22 05/24/22 05/24/22 21:09 21:13 23:29 MCV MCH MCHC RDW Plt Count MPV Immature Gran % (Auto) Neut % (Auto) Lymph % (Auto) [place] % (Auto) Eos % (Auto) Baso % (Auto) Lymph # (Auto) [place] # (Auto) Eos # (Auto) Baso # (Auto) Abs Immat Gran (auto) Absolute Neuts (auto) Absolute Nucleated RBC Nucleated RBC % (auto) Neutrophils % (Manual) Band Neutrophils % Lymphocytes % (Manual) Monocytes % (Manual) Abs Neuts (Manual) Lymphocytes # (Manual) Monocytes # (Manual) Smudge Cells Dohle Bodies Platelet Estimate Plt Morphology Comment RBC Morphology Polychromasia Macrocytosis O2 Saturation ABG pH at Pt Temp ABG pCO2 at Pt Temp ABG pO2 at Pt Temp ABG HCO3 ABG Base Excess (Actual) VBG pH 7.46 H VBG pCO2 32 VBG pO2 98 VBG HCO3 23 VBG O2 Saturation 99.0 VBG Base Excess 0.6 Anion Gap Estim Creat Clear Calc Estimated GFR POC Glucose 202 H Random Glucose Lactic Acid 2.7 H* Calcium Phosphorus Magnesium Total Bilirubin AST ALT Alkaline Phosphatase C-Reactive Protein B-Natriuretic Peptide Total Protein Albumin 05/25/22 05/25/22 05/25/22 05:10 05:10 05:10 MCV 88.4 MCH 30.0 MCHC 33.9 RDW 14.1 Plt Count 143 L D MPV 10.3 Immature Gran % (Auto) Cancelled Neut % (Auto) Cancelled Lymph % (Auto) Cancelled [place] % (Auto) Cancelled Eos % (Auto) Cancelled Baso % (Auto) Cancelled Lymph # (Auto) Cancelled [place] # (Auto) Cancelled Eos # (Auto) Cancelled Baso # (Auto) Cancelled Abs Immat Gran (auto) Cancelled Absolute Neuts (auto) Cancelled Absolute Nucleated RBC 0.020 H Nucleated RBC % (auto) 0.1 Neutrophils % (Manual) 61 Band Neutrophils % 16 H Lymphocytes % (Manual) 22 Monocytes % (Manual) 1 L Abs Neuts (Manual) 15.5 H Lymphocytes # (Manual) 4.4 Monocytes # (Manual) 0.2 Smudge Cells PRESENT Dohle Bodies PRESENT Platelet Estimate SLIGHTLY DECREASED Plt Morphology Comment NORMAL RBC Morphology NOTED Polychromasia 1+ (0-2) Macrocytosis 1+ (5-14) O2 Saturation ABG pH at Pt Temp ABG pCO2 at Pt Temp ABG pO2 at Pt Temp ABG HCO3 ABG Base Excess (Actual) VBG pH VBG pCO2 VBG pO2 VBG HCO3 VBG O2 Saturation VBG Base Excess Anion Gap 13 Estim Creat Clear Calc 40.0 Estimated GFR 31 POC Glucose Random Glucose 219 H Lactic Acid 1.8 Calcium 7.4 L D Phosphorus 3.1 Magnesium 2.3 Total Bilirubin 0.9 AST 21 ALT 14 Alkaline Phosphatase 36 L C-Reactive Protein 43.83 H B-Natriuretic Peptide Total Protein 4.1 L Albumin 3.1 L 05/25/22 05/25/22 05:12 05:20 MCV MCH MCHC RDW Plt Count MPV Immature Gran % (Auto) Neut % (Auto) Lymph % (Auto) [place] % (Auto) Eos % (Auto) Baso % (Auto) Lymph # (Auto) [place] # (Auto) Eos # (Auto) Baso # (Auto) Abs Immat Gran (auto) Absolute Neuts (auto) Absolute Nucleated RBC Nucleated RBC % (auto) Neutrophils % (Manual) Band Neutrophils % Lymphocytes % (Manual) Monocytes % (Manual) Abs Neuts (Manual) Lymphocytes # (Manual) Monocytes # (Manual) Smudge Cells Dohle Bodies Platelet Estimate Plt Morphology Comment RBC Morphology Polychromasia Macrocytosis O2 Saturation 98.0 ABG pH at Pt Temp 7.42 ABG pCO2 at Pt Temp 38 ABG pO2 at Pt Temp 92 ABG HCO3 25 ABG Base Excess (Actual) 0.8 VBG pH VBG pCO2 VBG pO2 VBG HCO3 VBG O2 Saturation VBG Base Excess Anion Gap Estim Creat Clear Calc Estimated GFR POC Glucose 175 H Random Glucose Lactic Acid Calcium Phosphorus Magnesium Total Bilirubin AST ALT Alkaline Phosphatase C-Reactive Protein B-Natriuretic Peptide Total Protein Albumin Microbiology Microbiology Results: Microbiology 05/23/22 Unknown Gram Stain - Final Peritoneal Fluid Routine Culture - Preliminary Culture in progress. Anaerobic Culture - Preliminary Culture in progress. 05/19/22 08:49 Blood Culture - Final Blood - Venous No growth after 5 days. 05/19/22 08:49 Blood Culture - Final Blood - Venous No growth after 5 days. Procedures Date of Service Date of Service: 05/25/22 Arterial Line Size (Gauge): 16 Progress Note: A&P Assessment and plan (1) Perforated viscus: Status: Acute Assessment and Plan: Status post sigmoid resection, colostomy, abdominal washout for feculent peritonitis Remains critically ill Urine output adequate On low-dose pressors Await return of GI function Anticipate prolonged ileus Expect complex postop course in view of feculent peritonitis On meropenem Follow lytes Creatinine a little higher Follow hemoglobin - drifting down, may be dilutional NOHEMI drain serosanguineous, scanty Time Spent With Patient Time: Total time spent is greater than 50% in coordination of care (as documented) at patient's floor/unit and/or counseling patient: Quality Stroke Does the patient have a stroke diagnosis?: No VTE Prior VTE?: No VTE Risk Level:: Medical - moderate - high VTE Device Contraindication: N/A - Device Ordered VTE Drug Contraindication: N/A - Med Ordered
--- NOTE | 2022-05-25 09:13 | OP_ITS ---
SURGEON: Ramu Peralta MD INDICATIONS: Abdominal pain with abnormal CT scan of the colon. PREOPERATIVE DIAGNOSIS: POSTOPERATIVE DIAGNOSIS: PROCEDURE PERFORMED: ESTIMATED BLOOD LOSS: COMPLICATIONS: ANESTHESIA: ASSISTANTS: SPECIMENS: PROCEDURE: Flexible sigmoidoscopy with biopsy on 05/23/22. MEDICATIONS: Monitored anesthesia care. DESCRIPTION OF PROCEDURE: History and Physical performed. The risks and benefits of the procedure were explained to the patient. Informed consent was obtained. The patient was placed in the left lateral decubitus position. A digital rectal exam was performed and was found to be normal. The Olympus pediatric video colonoscope was introduced into the rectum and advanced at 30 cm. Examination was performed. The scope was removed. She tolerated the procedure well and was taken to recovery in stable condition. FINDINGS: The visualized colonic mucosa appeared fairly normal in the rectosigmoid in total about 30 cm. There was a 10 x 20 mm area of ulceration. Opposite this, there was a 3 cm opening in the wall of the colon with some ulceration at the edges suspicious for a possible perforation into a contained abscess cavity. Biopsies were obtained from both abnormal areas. Beyond this, there was formed stool and it was elected not to proceed any further. Biopsies were also obtained from the rectosigmoid. Retroflexed examination appeared fairly normal. The exam was completed rapidly with minimal insufflation once the apparent perforation was identified. IMPRESSION: 1. Colonic ulceration. 2. Question of perforated viscus with contained abscess. PLAN: The patient will be sent for immediate CT scanning to confirm the above findings. Surgical consultation is currently being obtained. MD KYLIE Painting/MODL / [id number] MTDD
--- NOTE | 2022-05-25 10:01 | MHC.CLN ---
F/U DISCUSSED AT ROUNDS WITH MD REVIEWED LABS DISCUSSED WITH PHARMACY RECOMMEND INCREASING D15AA5 AT 55ML/HR TO PROVIDE [id number], 66G PROTEIN (1.08G/KG BASED ON CMW) CHECK TRIGS REPLETE LYTES NEEDED
[2022-05-25 11:20] LABS: Triglycerides 126 mg/dL
[2022-05-25 12:00] LABS: Sodium Urine Random < 20.0 mmol/L
[2022-05-25 12:05] LABS: Glucose, Whole Blood 158 mg/dL (60-115)
--- NOTE | 2022-05-25 12:57 | PM.GIPN ---
Subjective Subjective Date of Service: 05/25/22 Interval History: intubated and sedated Critical Care Time (minutes): 0 Physical Exam Vital Signs: Vital Signs: Last Vital Signs Temp 97.8 F 05/25/22 12:00 Pulse 96 05/25/22 12:00 Resp 14 05/25/22 12:00 BP 110/57 L 05/25/22 12:00 Pulse Ox 97 05/25/22 12:00 O2 Del Method 05/25/22 12:00 O2 Flow Rate 3 05/23/22 14:38 FiO2 40 05/25/22 12:00 Oxygen Flow Rate 30 05/24/22 18:19 BMI result Body Mass Index 40.6 GI: Other: abdomen is soft with dressings in place Objective Data Labs CBC & Chem 7: 05/25/22 05:10 05/25/22 05:10 Microbiology Microbiology Results: Microbiology 05/23/22 Unknown Peritoneal Fluid Gram Stain - Final 05/23/22 Unknown Peritoneal Fluid Routine Culture - Preliminary Gram negative elsie 05/23/22 Unknown Peritoneal Fluid Anaerobic Culture - Preliminary Culture in progress. 05/19/22 08:49 Blood - Venous Blood Culture - Final No growth after 5 days. 05/19/22 08:49 Blood - Venous Blood Culture - Final No growth after 5 days. Procedures Date of Service Date of Service: 05/25/22 Arterial Line Size (Gauge): 16 Progress Note: A&P Assessment and plan (1) Perforated viscus: Status: Acute Assessment and Plan: see below Plan reviewed biopsies from sigmoidoscopy, no chronic changes as would be expected with active Crohns disease, suggesting a more acute process. Updated and daughter. Time Spent With Patient Time: Total time spent is greater than 50% in coordination of care (as documented) at patient's floor/unit and/or counseling patient: Quality Stroke Does the patient have a stroke diagnosis?: No VTE Prior VTE?: No VTE Risk Level:: Medical - moderate - high VTE Device Contraindication: N/A - Device Ordered VTE Drug Contraindication: N/A - Med Ordered
[2022-05-25] MEDS: HYDROmorphone HCl 2 MG/ML VIAL IVPUSH ×2 (13:43→21:17)
[2022-05-25] MEDS: propofoL 1,000 MG/100 ML VIAL 9.58 MG IVCONT (14:29)
--- NOTE | 2022-05-25 14:48 | P.CDIC_ITS ---
CDI Concurrent Query Documentation Clarification: PHYSICIAN'S DOCUMENTATION REQUEST Date of Query: 05/25/22 1448 Patient Name: Ju Hankins Admit Date: 05/18/22 Dear Doctor, A review of the medical record indicates additional documentation may be needed. Please review below and update the documentation accordingly. Clinical Indicators: Is there a diagnosis that correlates with the findings below: Risk Factors/Clinical Indicators/Treatments BMI: 40.6 Height: 5ft 3in Weight: 103.9kg If possible, please provide an associated diagnosis related to the abnormal BMI, such as: For a BMI >= 40: * Severe or Morbid Obesity * Obesity * Due to excess calories * Drug induced * Due to other cause Or: * BMI is not significant * Other (please specify) * Unable to determine Use of terms such as suspected, likely, concern for, or probable (associated with a specific diagnosis that is being evaluated, monitored, or treated as if it exists) are acceptable and can be coded in the inpatient setting, when documented at the time of discharge. Thank you, Brynn An MS, RN, CCRN Extension: [phone] Please use your independent medical judgment in providing your response. THIS QUERY IS PART OF THE PERMANENT MEDICAL RECORD Provider Response: Obesity
--- NOTE | 2022-05-25 16:49 | PM.CCPN ---
Subjective Subjective Date of Service: 05/25/22 Interval History: Mrs. Hankins was transferred to the ICU on May 23 directly from the OR still intubated after emergency sigmoid resection and colostomy for perforated viscus. The patient is a 62 year old female with history of Crohn's disease who presented to the ED May 18 complaining of 2 weeks of abdominal pain.? She?d been treated with prednisone for a presumed flare up.? On the morning of presentation, she developed sudden onset of sharp pain.? Initial CT scan suggested severe constipation and a question of partial obstruction with worsening severe colitis of the sigmoid colon and proctitis, with increased wall thickening.? There was no evidence of free air.? She was treated with opiates and Zosyn.? The patient was admitted to Medicine and started on systemic steroids. ?Lactic acid was normal on May 19. The patient had no relief with tx.? She underwent flex sig by Dr. Peralta on May 23 at which he found a large abscess cavity in the sigmoid with some associated ulceration, stool, and a second area of ulceration, which was biopsied.? Post procedure the patient had significant worsening of her abdominal exam; stat ct showed free air and fluid with a pelvic abscess. ?She was taken directly to the OR. At laparotomy, found a large perforation in the distal sigmoid, with two large stool balls immediately adjacent to the perforation.? There was extensive peritoneal fecal soilage, w marked indurated peritonitis especially in the pelvis, with the sigmoid covered in thick inflammatory rind.? She underwent extensive lysis of adhesions, sigmoid resection and colostomy, and abdominal washout.? The anesthetic course was marked by progressive tachycardia and hypotension, ultimately requiring pressor support.? Intraop blood loss was minimal; she was given 2.5 L of crystalloid.? The abdomen was closed and the patient was brought out intubated to ICU. On arrival to the ICU, the patient was in deep shock, and markedly hypovolemic.? Echo showed normal right and left heart, with hyperdynamic function and small IVC.? The patient was volume resu 50scitated, with excellent hemodynamic response.? A central line and arterial line were placed. Since then creatinine has bumped slowly to 1.7 today (baseline 0.7), altho she continues to make urine and her lactic and metabolic acidoses have cleared. ?Her Levophed dose is down to about 0.3ug. This afternoon she?s well sedated on propofol 20ug and fentanyl 75ug.? Doesn?t arouse w vigorous shaking.? Breathing at the set ventilator rate.? HR 93, BP 102/53 on Levophed 0.4ug, Esmolol 100ug.? On AC 14/400/40%/+8, RR is 14, Ve 5.6L, PIP 24cm, ETCO2 41mm, Sat 97%.? ABG this morning 7.42/38/92/0. ?Tmax 102.9 in the early morn hours.? PER, about 2-3mm.? No JVD at 30?.? Chest CTA with normal exp phase.? RRR, normal-sounding S1 and S2, no murmur or gallops.? Abdomen mildly obese, but doesn?t look distended.? I heard a few BS.? The stoma looks good; no output.? The belly is soft.? Mild generalized edema. U/O overnite 1165cc. LABORATORY DATA: ?Below.? Notably, Plat count is down to 143, BUN/creatinine up to 24/1.7, but bicarb up to 25, K+ 3.5, phos 3.1, alb 3.1 ECHOCARDIOGRAM by the tech yesterday:? Difficult study.? LV size and fxn normal.? RV not well seenout 50%.? No AI, , or MR.? Inadequate TV envelope.? IVC normal sized. IMPRESSION: 1. Underlying obesity. 2. Perforated viscus w fecal peritonitis.? This was obviously not acute.? Suspect she perforated the morning of admission when she had sudden onset pain. 3. Septic shock.? 2? above.? Still in shock slowly improving.? Taper Levophed as julee. 4. Tachycardia.? On esmolol for HR control.? Taper down. 5. Hypovolemia.? I think she?s adequately volume resusc at this point. 6. Acute resp failure.? All things considered, she?s doing well.? Bec of her low lung vols, we put her PEEP up to 8cm.? F/U CXR tomorrow morning. 7. SABINE.? 2? septic shock.? Adequately volume resuscitated at this point. 8. ID:? On renally adjusted meropenem. 9. IV sedation:? We?ll taper the fentanyl off, go with just prn Dilaudid for pain.? Taper propofol as able. 10. Anemia.? 2? hemodilution. 11. Hypokalemia.? Continue repletion. 12. Hyperglycemia.? SS insulin. 13. Nutrition.? TPN. 14. DVT prophylaxis:? Compression therapy.? Start SQ heparin tonite. Updated her re condition and treatment. Critical Care Time (minutes): 60 Physical Exam Vital Signs: Vital Signs: Last Vital Signs Temp 97.8 F 05/25/22 12:00 Pulse 95 05/25/22 16:30 Resp 14 05/25/22 16:00 BP 107/54 L 05/25/22 16:00 Pulse Ox 96 05/25/22 16:00 O2 Del Method 05/25/22 16:00 O2 Flow Rate 3 05/23/22 14:38 FiO2 40 05/25/22 16:00 Oxygen Flow Rate 30 05/24/22 18:19 BMI result Body Mass Index 40.6 Objective Data Labs CBC & Chem 7: 05/25/22 05:10 05/25/22 05:10 Labs: Laboratory Results - last 24 hr 05/24/22 05/24/22 05/24/22 18:41 21:09 21:09 WBC RBC Hgb 10.2 L Hct 29.0 L MCV MCH MCHC RDW Plt Count MPV Immature Gran % (Auto) Neut % (Auto) Lymph % (Auto) [place] % (Auto) Eos % (Auto) Baso % (Auto) Lymph # (Auto) [place] # (Auto) Eos # (Auto) Baso # (Auto) Abs Immat Gran (auto) Absolute Neuts (auto) Absolute Nucleated RBC Nucleated RBC % (auto) Neutrophils % (Manual) Band Neutrophils % Lymphocytes % (Manual) Monocytes % (Manual) Abs Neuts (Manual) Lymphocytes # (Manual) Monocytes # (Manual) Smudge Cells Dohle Bodies Platelet Estimate Plt Morphology Comment RBC Morphology Polychromasia Macrocytosis O2 Saturation ABG pH at Pt Temp ABG pCO2 at Pt Temp ABG pO2 at Pt Temp ABG HCO3 ABG Base Excess (Actual) VBG pH VBG pCO2 VBG pO2 VBG HCO3 VBG O2 Saturation VBG Base Excess Sodium 145 Potassium 3.6 D Chloride 111 H Carbon Dioxide 23 Anion Gap 15 BUN 21 H Creatinine 1.59 H Estim Creat Clear Calc 37.1 Estimated GFR 33 POC Glucose 178 H Random Glucose 234 H Lactic Acid Calcium 6.8 L Phosphorus Magnesium Total Bilirubin AST ALT Alkaline Phosphatase C-Reactive Protein Total Protein Albumin Triglycerides Ur Random Sodium 05/24/22 05/24/22 05/24/22 21:09 21:13 23:29 WBC RBC Hgb Hct MCV MCH MCHC RDW Plt Count MPV Immature Gran % (Auto) Neut % (Auto) Lymph % (Auto) [place] % (Auto) Eos % (Auto) Baso % (Auto) Lymph # (Auto) [place] # (Auto) Eos # (Auto) Baso # (Auto) Abs Immat Gran (auto) Absolute Neuts (auto) Absolute Nucleated RBC Nucleated RBC % (auto) Neutrophils % (Manual) Band Neutrophils % Lymphocytes % (Manual) Monocytes % (Manual) Abs Neuts (Manual) Lymphocytes # (Manual) Monocytes # (Manual) Smudge Cells Dohle Bodies Platelet Estimate Plt Morphology Comment RBC Morphology Polychromasia Macrocytosis O2 Saturation ABG pH at Pt Temp ABG pCO2 at Pt Temp ABG pO2 at Pt Temp ABG HCO3 ABG Base Excess (Actual) VBG pH 7.46 H VBG pCO2 32 VBG pO2 98 VBG HCO3 23 VBG O2 Saturation 99.0 VBG Base Excess 0.6 Sodium Potassium Chloride Carbon Dioxide Anion Gap BUN Creatinine Estim Creat Clear Calc Estimated GFR POC Glucose 202 H Random Glucose Lactic Acid 2.7 H* Calcium Phosphorus Magnesium Total Bilirubin AST ALT Alkaline Phosphatase C-Reactive Protein Total Protein Albumin Triglycerides Ur Random Sodium 05/25/22 05/25/22 05/25/22 05:10 05:10 05:10 WBC 20.1 H RBC 2.77 L Hgb 8.3 L Hct 24.5 L MCV 88.4 MCH 30.0 MCHC 33.9 RDW 14.1 Plt Count 143 L D MPV 10.3 Immature Gran % (Auto) Cancelled Neut % (Auto) Cancelled Lymph % (Auto) Cancelled [place] % (Auto) Cancelled Eos % (Auto) Cancelled Baso % (Auto) Cancelled Lymph # (Auto) Cancelled [place] # (Auto) Cancelled Eos # (Auto) Cancelled Baso # (Auto) Cancelled Abs Immat Gran (auto) Cancelled Absolute Neuts (auto) Cancelled Absolute Nucleated RBC 0.020 H Nucleated RBC % (auto) 0.1 Neutrophils % (Manual) 61 Band Neutrophils % 16 H Lymphocytes % (Manual) 22 Monocytes % (Manual) 1 L Abs Neuts (Manual) 15.5 H Lymphocytes # (Manual) 4.4 Monocytes # (Manual) 0.2 Smudge Cells PRESENT Dohle Bodies PRESENT Platelet Estimate SLIGHTLY DECREASED Plt Morphology Comment NORMAL RBC Morphology NOTED Polychromasia 1+ (0-2) Macrocytosis 1+ (5-14) O2 Saturation ABG pH at Pt Temp ABG pCO2 at Pt Temp ABG pO2 at Pt Temp ABG HCO3 ABG Base Excess (Actual) VBG pH VBG pCO2 VBG pO2 VBG HCO3 VBG O2 Saturation VBG Base Excess Sodium 146 H Potassium 3.5 Chloride 112 H Carbon Dioxide 25 Anion Gap 13 BUN 24 H Creatinine 1.70 H Estim Creat Clear Calc 40.0 Estimated GFR 31 POC Glucose Random Glucose 219 H Lactic Acid 1.8 Calcium 7.4 L D Phosphorus 3.1 Magnesium 2.3 Total Bilirubin 0.9 AST 21 ALT 14 Alkaline Phosphatase 36 L C-Reactive Protein 43.83 H Total Protein 4.1 L Albumin 3.1 L Triglycerides 126 Ur Random Sodium 05/25/22 05/25/22 05/25/22 05:12 05:20 12:02 WBC RBC Hgb Hct MCV MCH MCHC RDW Plt Count MPV Immature Gran % (Auto) Neut % (Auto) Lymph % (Auto) [place] % (Auto) Eos % (Auto) Baso % (Auto) Lymph # (Auto) [place] # (Auto) Eos # (Auto) Baso # (Auto) Abs Immat Gran (auto) Absolute Neuts (auto) Absolute Nucleated RBC Nucleated RBC % (auto) Neutrophils % (Manual) Band Neutrophils % Lymphocytes % (Manual) Monocytes % (Manual) Abs Neuts (Manual) Lymphocytes # (Manual) Monocytes # (Manual) Smudge Cells Dohle Bodies Platelet Estimate Plt Morphology Comment RBC Morphology Polychromasia Macrocytosis O2 Saturation 98.0 ABG pH at Pt Temp 7.42 ABG pCO2 at Pt Temp 38 ABG pO2 at Pt Temp 92 ABG HCO3 25 ABG Base Excess (Actual) 0.8 VBG pH VBG pCO2 VBG pO2 VBG HCO3 VBG O2 Saturation VBG Base Excess Sodium Potassium Chloride Carbon Dioxide Anion Gap BUN Creatinine Estim Creat Clear Calc Estimated GFR POC Glucose 175 H 158 H Random Glucose Lactic Acid Calcium Phosphorus Magnesium Total Bilirubin AST ALT Alkaline Phosphatase C-Reactive Protein Total Protein Albumin Triglycerides Ur Random Sodium 05/25/22 Unknown WBC RBC Hgb Hct MCV MCH MCHC RDW Plt Count MPV Immature Gran % (Auto) Neut % (Auto) Lymph % (Auto) [place] % (Auto) Eos % (Auto) Baso % (Auto) Lymph # (Auto) [place] # (Auto) Eos # (Auto) Baso # (Auto) Abs Immat Gran (auto) Absolute Neuts (auto) Absolute Nucleated RBC Nucleated RBC % (auto) Neutrophils % (Manual) Band Neutrophils % Lymphocytes % (Manual) Monocytes % (Manual) Abs Neuts (Manual) Lymphocytes # (Manual) Monocytes # (Manual) Smudge Cells Dohle Bodies Platelet Estimate Plt Morphology Comment RBC Morphology Polychromasia Macrocytosis O2 Saturation ABG pH at Pt Temp ABG pCO2 at Pt Temp ABG pO2 at Pt Temp ABG HCO3 ABG Base Excess (Actual) VBG pH VBG pCO2 VBG pO2 VBG HCO3 VBG O2 Saturation VBG Base Excess Sodium Potassium Chloride Carbon Dioxide Anion Gap BUN Creatinine Estim Creat Clear Calc Estimated GFR POC Glucose Random Glucose Lactic Acid Calcium Phosphorus Magnesium Total Bilirubin AST ALT Alkaline Phosphatase C-Reactive Protein Total Protein Albumin Triglycerides Ur Random Sodium < 20.0 Microbiology Microbiology Results: Microbiology 05/23/22 Unknown Peritoneal Fluid Gram Stain - Final 05/23/22 Unknown Peritoneal Fluid Routine Culture - Preliminary Gram negative elsie 05/23/22 Unknown Peritoneal Fluid Anaerobic Culture - Preliminary Culture in progress. 05/19/22 08:49 Blood - Venous Blood Culture - Final No growth after 5 days. 05/19/22 08:49 Blood - Venous Blood Culture - Final No growth after 5 days. Quality Stroke Does the patient have a stroke diagnosis?: No VTE Prior VTE?: No VTE Risk Level:: Medical - moderate - high VTE Device Contraindication: N/A - Device Ordered VTE Drug Contraindication: N/A - Med Ordered Critical Care Time Critical Care Time (minutes): 60
[2022-05-25] MEDS: HYDROmorphone HCl 1 MG/ML SYRINGE IVPUSH (17:18)
[2022-05-25] MEDS: Esmolol HCl/NaCl Iso 2,500 MG/250 ML IV.SOLN 35.91 MG IVCONT (17:43)
[2022-05-25 17:50] LABS: Glucose, Whole Blood 125 mg/dL (60-115)
[2022-05-25] MEDS: Acetaminophen Oral Liquid 650 MG/20.3 ML SOLUTION PO (18:57)
[2022-05-25] MEDS: Venlafaxine HCL 25 MG TABLET 75 MG PO (21:27)
[2022-05-25] MEDS: Heparin Sodium,Porcine 5,000 UNIT/ML VIAL 5000 UNIT SUBCUT (21:27)
[2022-05-26] VITALS (36 sets, daily range): BP systolic 91–152; BP diastolic 43–77; PULSE 71–101; RESP 7–27; TEMP 34.9–39.2; O2SAT 93–98
[2022-05-26] MEDS: Esmolol HCl/NaCl Iso 2,500 MG/250 ML IV.SOLN 35.91 MG IVCONT (00:07)
[2022-05-26] MEDS: 0.9 % Sodium Chloride Flush 3 ML SYRINGE IVFLUSH ×3 (00:18→15:55)
[2022-05-26] MEDS: Insulin Lispro 100 UNIT/ML 3 ML VIAL SUBCUT ×4 (00:23→18:06)
[2022-05-26] MEDS: Acetaminophen Supp 325 MG SUPP.RECT PR (00:24)
[2022-05-26 00:25] LABS: Glucose, Whole Blood 182 mg/dL (60-115)
--- NOTE | 2022-05-26 02:42 | PC.NURSE ---
Addendum entered by Justice Pardo RN 05/26/22 06:17: NOHEMI DRAIN OUTPUT 10PM-6AM= 530ml Addendum entered by Justice Pardo RN 05/26/22 06:10: FENTANYL DRIP WEANED OFF 5AM--SUBSEQUENTLY PATIENT MEDINA/GRIMACING/VENT DYSYNCHRONY PRESENT/NOT FOLLOWING COMMANDS...PRN DILAUDID GIVEN WITH RESTFUL EFFECT AND RETURN OF VENT SYNCHRONY Original Note: CARE ASSUMED 23:15...REMIANS TUBED/VENTED...AC/VC SETTINGS.....T-MAX 103.1 VIA ESOPHAGEAL PROBE...PLACED ON COOLING BLANKET AND TYLENOL 325 RECTAL GIVEN PER ICU PA...CURRENTLY TEMP= 100.5 ...ABDOMEN REMAINS DISTENDED AND FIRM AND SILENT...COLOSTOMY WITH SMALL AMOUNT SEROUS DRAINAGE...NOHEMI DRAIN PER REPORT HAD DRAINED MINIMAL DRAINAGE....POSITIONED IN BED...NOHEMI DRAIN WITH 425ml [place]-YELLOW DRAINAGE FROM 23:00-12AM....ADDITIONAL 50ml DRAINAGE 12AM-2AM...[place] X[place]O-YELLOW URINE...LEVOPHED/ESMOLOL/PROPOFOL/FENTANYL DRIPS PER NOV...CURRENTLY NSR..HR 80-84 WITH DECREASED TEMPERATURE..GLUTEAL FOLD AND INNER BUTTOCKS REMAIN WITH BROWNISH DISCOLORATION UNCHANGED FROM 24HOURS AGO
[2022-05-26] MEDS: fentaNYL citrate/NS 1,000 MCG/100 ML PLAST..BAG 2.5 MCG IVCONT (02:59)
[2022-05-26] MEDS: propofoL 1,000 MG/100 ML VIAL 7.18 MG IVCONT (03:51)
[2022-05-26 05:25] LABS: VBG Base Excess -1.6 mmol/L; VBG HCO3 23 mmol/L (22-26); VBG pCO2 39 mmHg; VBG pH 7.37 (7.32-7.43); VBG pO2 46 mmHg
[2022-05-26 05:28] LABS: Glucose, Whole Blood 166 mg/dL (60-115)
[2022-05-26 05:31] LABS: Hematocrit 23.7 % (37.0-47.0); Hemoglobin 7.7 g/dl (12.0-16.0); Mean Corpuscular HGB Conc 32.5 g/dl (31.0-35.0); Mean Corpuscular Hemoglobin 29.7 pg (27.0-33.0); Mean Corpuscular Volume 91.5 fL (80.0-98.0); Mean Platelet Volume 10.2 fL (9.4-12.3); Red Blood Count 2.59 X10*6/uL (4.20-5.50); Red Cell Distribution Width 14.6 % (11.0-16.0); White Blood Count 16.7 X10*3/uL (4.8-10.8)
[2022-05-26 05:34] LABS: Platelet Count 94 X10*3/uL (160-400)
[2022-05-26] MEDS: Pantoprazole Sodium 40 MG/10 ML VIAL IVPUSH (05:36)
[2022-05-26] MEDS: Hydrocortisone Sod Succ/PF 100 MG VIAL 50 MG IVPUSH (05:36)
[2022-05-26] MEDS: Heparin Sodium,Porcine 5,000 UNIT/ML VIAL 5000 UNIT SUBCUT ×3 (05:37→21:07)
[2022-05-26] MEDS: HYDROmorphone HCl 2 MG/ML VIAL IVPUSH ×4 (05:37→19:32)
[2022-05-26 05:41] LABS: Lactic Acid 1.2 mmol/L (0.5-2.0)
[2022-05-26 05:55] LABS: Albumin Level 2.8 g/dL (3.5-5.0); Anion Gap 13 (12-20); Blood Urea Nitrogen 32 mg/dL (9-16); Calcium 7.3 mg/dL (8.4-10.2); Carbon Dioxide 23 mmol/L (22-29); Chloride 114 mmol/L (96-108); Estimated Glomerular Filt Rate 33; Glucose Random 187 mg/dL (60-115); Magnesium 2.4 mg/dL (1.6-2.6); Phosphorus 3.9 mg/dL (2.7-4.5); Potassium 3.4 mmol/L (3.3-5.1); Sodium 147 mmol/L (135-145)
[2022-05-26 06:03] LABS: Venous Blood Gas Refer to POC result
[2022-05-26] MEDS: Potassium Chloride/H20 20 MEQ/100 ML PIGGYBACK 100 MEQ IV (06:43)
[2022-05-26] MEDS: Calcium Gluconate/NaCl,Iso-Osm 1 GM/50 ML PLAST..BAG IV (07:44)
[2022-05-26] MEDS: Topiramate 100 MG TABLET 200 MG PO ×2 (09:01→21:16)
[2022-05-26] MEDS: Chlorhexidine Gluc Oral Rinse 15 ML MOUTHWASH BUCCAL ×3 (09:01→21:13)
[2022-05-26] MEDS: Esmolol HCl/NaCl Iso 2,500 MG/250 ML IV.SOLN 11.97 MG IVCONT (09:53)
--- NOTE | 2022-05-26 10:02 | P.PNCC_ITS ---
Subjective Subjective Date of Service: 05/26/22 Interval History: Mrs. Hankins was transferred to the ICU on May 23 directly from the OR still intubated after emergency sigmoid resection and colostomy for perforated viscus. The patient is a 62 year old female with history of Crohn's disease who presented to the ED May 18 complaining of 2 weeks of abdominal pain.? She?d been treated with prednisone for a presumed flare up.? On the morning of presentation, she developed sudden onset of sharp pain.? Initial CT scan suggested severe constipation and a question of partial obstruction with worsening severe colitis of the sigmoid colon and proctitis, with increased wall thickening.? There was no evidence of free air.? She was treated with opiates and Zosyn.? The patient was admitted to Medicine and started on systemic steroids. ?Lactic acid was normal on May 19. The patient had no relief with tx.? She underwent flex sig by Dr. Peralta on May 23 at which he found a large abscess cavity in the sigmoid with some associated ulceration, stool, and a second area of ulceration, which was biopsied.? Post procedure the patient had significant worsening of her abdominal exam; stat ct showed free air and fluid with a pelvic abscess. ?She was taken directly to the OR. At laparotomy, found a large perforation in the distal sigmoid, with two large stool balls immediately adjacent to the perforation.? There was extensive peritoneal fecal soilage, w marked indurated peritonitis especially in the pelvis, with the sigmoid covered in thick inflammatory rind.? She underwent extensive lysis of adhesions, sigmoid resection and colostomy, and abdominal washout.? The anesthetic course was marked by progressive tachycardia and hypotension, ultimately requiring pressor support. ?Intraop blood loss was minimal; she was given 2.5 L of crystalloid.? The abdomen was closed and the patient was brought out intubated to ICU. On arrival to the ICU, the patient was in deep shock, and markedly hypovolemic.? Echo showed normal right and left heart, with hyperdynamic function and small IVC.? The patient was volume resu 50scitated, with excellent hemodynamic response.? A central line and arterial line were placed. Since then creatinine bumped up to 1.7 yesterday (baseline 0.7), but is down to 1.5 today.? She continues to make good urine and her lactic and metabolic acidoses have cleared. ?Potassium and phosphorus are low.? Her Levophed was discontinued this morning. This morning she?s lightly sedated on propofol 15 ug, and the fentanyl infusion is off.? Still not breathing above the set ventilator rate.? HR 82, BP 118/61 on Levophed 0.05ug, Esmolol 25ug.? On AC 14/400, FiO2 down to 30%/+8, RR is 14, Ve 6.1L, PIP 26cm, ETCO2 37mm, Sat 96%.? CVBG this morning 7.37/39/-1.? Tmax 103.1 late last night, now on a cooling blanket and afebrile.? PER, about 3mm.? No JVD at 30?.? Chest CTA with normal exp phase.? RRR, normal-sounding S1 and S2, no murmur or gallops.? Abdomen mildly obese, not distended.? No BS today.? The stoma looks good; minimal serous output.? Small amount of clear serous output in the NOHEMI drain.? The belly is soft.? Mild generalized edema, maybe slightly less than yesterday. U/O overnite 1425cc. LABORATORY DATA: ?Below.? Notably, Plat count is down to 94K, BUN up to 32, creat down to 1.58, bicarb down to 23, K+ 3.4, phos 3.9, alb 2.8, lactate normal. ECHOCARDIOGRAM by the [facility] on May 24:? Difficult study.? LV size and fxn normal.? RV not well seen 50%.? No AI, , or MR.? Inadequate TV envelope.? IVC normal sized. CXR this morning:? Lung vols still compressed, but maybe sl better than May 23.? Small left pleural effusion with retrocardiac density. IMPRESSION: 1. Underlying obesity. 2. Perforated viscus w fecal peritonitis.? This was obviously not acute.? Suspect she perforated the morning of admission when she had sudden onset pain.? The pathology report shows no evidence of Crohn?s.? I?m tapering her steroids off. 3. Septic shock.? 2? above.? Resolving. 4. Tachycardia.? Resolving.? Tapering the esmolol. 5. Hypovolemia.? I think she?s adequately volume resusc at this point. 6. Acute resp failure.? All things considered, she?s doing well.? Bec of her low lung vols, we put her PEEP up to 8cm.? PSV trials today. 7. SABINE.? 2? septic shock.? Adequately volume resuscitated at this point. 8. ID:? On renally adjusted meropenem. 9. IV sedation:? Has been on low dose propofol infusion throughout.? The fentanyl was tapered off, and we?re giving her a propofol holiday now.? Waiting for her to wake up. 10. Anemia.? 2? hemodilution. 11. ?Thrombocytopenia.? 2? critical illness.? If persists, will send heparin Ab. 12. Hypokalemia.? Continue repletion. 13. Hyperglycemia.? SS insulin. 14. Nutrition.? TPN. 15. DVT prophylaxis:? Compression therapy, and started SQ heparin last nite. Updated her re condition and treatment. Critical care time:? 70+ min. Critical Care Time (minutes): 70 Physical Exam Vital Signs: Vital Signs: Last Vital Signs Temp 97.6 F 05/26/22 07:00 Pulse 79 05/26/22 09:12 Resp 14 05/26/22 09:00 BP 123/64 05/26/22 09:12 Pulse Ox 97 05/26/22 09:00 O2 Del Method 05/26/22 09:00 O2 Flow Rate 3 05/23/22 14:38 FiO2 30 05/26/22 09:38 Oxygen Flow Rate 40 05/25/22 17:21 BMI result Body Mass Index 40.6 Objective Data Labs CBC & Chem 7: 05/26/22 05:18 05/26/22 05:18 Labs: Laboratory Results - last 24 hr 05/25/22 05/25/22 05/25/22 05:10 12:02 17:45 WBC RBC Hgb Hct MCV MCH MCHC RDW Plt Count MPV Absolute Nucleated RBC Nucleated RBC % (auto) VBG pH VBG pCO2 VBG pO2 VBG HCO3 VBG O2 Saturation VBG Base Excess Sodium Potassium Chloride Carbon Dioxide Anion Gap BUN Creatinine Estim Creat Clear Calc Estimated GFR POC Glucose 158 H 125 H Random Glucose Lactic Acid Calcium Phosphorus Magnesium Albumin Triglycerides 126 Ur Random Sodium 05/25/22 05/26/22 05/26/22 Unknown 00:21 05:18 WBC 16.7 H RBC 2.59 L Hgb 7.7 L Hct 23.7 L MCV 91.5 MCH 29.7 MCHC 32.5 RDW 14.6 Plt Count 94 L D MPV 10.2 Absolute Nucleated RBC 0.000 Nucleated RBC % (auto) 0.0 VBG pH VBG pCO2 VBG pO2 VBG HCO3 VBG O2 Saturation VBG Base Excess Sodium Potassium Chloride Carbon Dioxide Anion Gap BUN Creatinine Estim Creat Clear Calc Estimated GFR POC Glucose 182 H Random Glucose Lactic Acid Calcium Phosphorus Magnesium Albumin Triglycerides Ur Random Sodium < 20.0 05/26/22 05/26/22 05/26/22 05:18 05:18 05:20 WBC RBC Hgb Hct MCV MCH MCHC RDW Plt Count MPV Absolute Nucleated RBC Nucleated RBC % (auto) VBG pH 7.37 VBG pCO2 39 VBG pO2 46 VBG HCO3 23 VBG O2 Saturation 75.0 VBG Base Excess -1.6 Sodium 147 H Potassium 3.4 Chloride 114 H Carbon Dioxide 23 Anion Gap 13 BUN 32 H Creatinine 1.58 H Estim Creat Clear Calc 43.0 Estimated GFR 33 POC Glucose Random Glucose 187 H Lactic Acid 1.2 Calcium 7.3 L Phosphorus 3.9 Magnesium 2.4 Albumin 2.8 L Triglycerides Ur Random Sodium 05/26/22 05:24 WBC RBC Hgb Hct MCV MCH MCHC RDW Plt Count MPV Absolute Nucleated RBC Nucleated RBC % (auto) VBG pH VBG pCO2 VBG pO2 VBG HCO3 VBG O2 Saturation VBG Base Excess Sodium Potassium Chloride Carbon Dioxide Anion Gap BUN Creatinine Estim Creat Clear Calc Estimated GFR POC Glucose 166 H Random Glucose Lactic Acid Calcium Phosphorus Magnesium Albumin Triglycerides Ur Random Sodium Microbiology Microbiology Results: Microbiology 05/23/22 Unknown Peritoneal Fluid Gram Stain - Final 05/23/22 Unknown Peritoneal Fluid Routine Culture - Preliminary Gram negative elsie 05/23/22 Unknown Peritoneal Fluid Anaerobic Culture - Preliminary Culture in progress. 05/19/22 08:49 Blood - Venous Blood Culture - Final No growth after 5 days. 05/19/22 08:49 Blood - Venous Blood Culture - Final No growth after 5 days. Quality Stroke Does the patient have a stroke diagnosis?: No VTE Prior VTE?: No VTE Risk Level:: Medical - moderate - high VTE Device Contraindication: N/A - Device Ordered VTE Drug Contraindication: N/A - Med Ordered Critical Care Time Critical Care Time (minutes): 60
--- NOTE | 2022-05-26 10:18 | MHC.CLN ---
F/U DISCUSSED AT ROUNDS WITH MD PLAN TO ADD D5W R/T FEVER AND ELEVATED SERUM NA LEVELS REVIEWED LABS DISCUSSED WITH PHARMACY RECOMMEND INCREASING D15AA5 TO 75ML/HR TO PROVIDE 1278KCALS (1638TOTAL KCALS WITH SEDATION AND IVF; 27KCALS/KG BASED ON CMW), 90G PROTEIN (1.5G/KG BASED ON CMW) TRIGS WNL-HOLDING LIPIDS TODAY REPLETE LYTES NEEDED IF PROPOFOL AND IVF D/C OVER WEEKEND; RECOMMEND ADDING 23ML OF 20% LIPIDS TO PROVIDE AN ADDITIONAL 552KCALS (PHARMACY AWARE)
--- NOTE | 2022-05-26 10:29 | PM.PNGS ---
Subjective Subjective Date of Service: 05/26/22 Interval history: remains on vent sedated low dose pressors no output from stoma Had multiple discussions with family about patient -She apparently had been having constipation for several weeks but did not want to take any stool softeners or laxatives -this may explain fecaliths that may have caused stercoral ulceration Physical Exam Vital Signs: Vital Signs: Last Vital Signs Temp 97.6 F 05/26/22 07:00 Pulse 81 05/26/22 10:00 Resp 11 L 05/26/22 10:00 BP 116/60 05/26/22 10:00 Pulse Ox 95 05/26/22 10:00 O2 Del Method 05/26/22 10:00 O2 Flow Rate 3 05/23/22 14:38 FiO2 30 05/26/22 10:00 Oxygen Flow Rate 40 05/25/22 17:21 BMI result Body Mass Index 40.6 Const: Other: on ventilator, sedated Resp: Other: on ventilator Cardio: Rhythm: regular rhythm GI: Other: soft, no obvious guarding, stoma dusky but viable, no output yet Objective Data Active Medications Acetaminophen (Acetaminophen Supp 325 Mg Supp.Rect) 975 mg [place] Q8H PRN PRN Reason: Fever Chlorhexidine Gluconate (Chlorhexidine Gluc Oral Rinse 15 Ml Mouthwash) 15 ml BUCCAL TID [facility] Last Admin: 05/26/22 09:01 Dose: 15 ml Documented By: ISH Fentanyl (Fentanyl Citrate/Pf 100 Mcg/2 Ml Vial) 100 mcg IVPUSH Q5M PRN; Protocol PRN Reason: short term pain or WOB Heparin Sodium (Porcine) (Heparin Sodium,Porcine 5,000 Unit/Ml Vial) 5,000 unit SUBCUT Q8H [facility] Last Admin: 05/26/22 05:37 Dose: 5,000 unit Documented By: LUIS Hydrocortisone Sodium Succinate (Hydrocortisone Sod Succ/Pf 100 Mg Vial) 50 mg IVPUSH Q12H [facility] Last Admin: 05/26/22 05:36 Dose: 50 mg Documented By: LUIS Hydromorphone HCl (Hydromorphone Hcl 1 Mg/Ml Syringe) 1 mg IVPUSH Q1H PRN; Protocol PRN Reason: mild pain Last Admin: 05/25/22 17:18 Dose: 1 mg Documented By: ISH Hydromorphone HCl (Hydromorphone Hcl 2 Mg/Ml Vial) 2 mg IVPUSH Q1H PRN; Protocol PRN Reason: severe pain Last Admin: 05/26/22 05:37 Dose: 2 mg Documented By: LUIS Propofol (Diprivan) 1,000 mg in 100 mls @ 0 mls/hr IVCONT .Q0M [facility]; Protocol Last Admin: 05/26/22 03:51 Dose: 15 mcg/kg/min, 7.18 mls/hr Documented By: LUIS Fentanyl (Sublimaze/Ns) 1,000 mcg in 100 mls @ 0 mls/hr IVCONT .Q0M [facility]; Protocol Last Titration: 05/26/22 05:07 Dose: 0 mcg/hr, 0 mls/hr Documented By: LUIS Esmolol HCl (Brevibloc/Nacl) 2,500 mg in 250 mls @ 0 mls/hr IVCONT .Q0M [facility]; Protocol Last Admin: 05/26/22 09:53 Dose: 25 mcg/kg/min, 11.97 mls/hr Documented By: ISH Norepinephrine Bitartrate (Levophed) 8 mg in 250 mls @ 0 mls/hr IVCONT .Q0M [facility]; Protocol Last Titration: 05/26/22 09:12 Dose: 0.05 mcg/kg/min, 7.48 mls/hr Documented By: ISH Meropenem 1 gm/ Sodium (Chloride) 100 mls @ 200 mls/hr IV Q12H [facility] Last Infusion: 05/26/22 09:47 Dose: 0 mls/hr Documented By: ISH Potassium Chloride 40 meq/Magnesium Sulfate 10 meq/Potassium Phosphate 40 mmol/Calcium Gluconate 9.3 meq/Multivitamins 15 ml/ Trace Metals 1.5 ml/ Amino Acids/Dextrose 1,320 mls @ 55 mls/hr IV DAILY@1800 [facility] Stop: 05/26/22 17:59 Last Admin: 05/25/22 17:42 Dose: 55 mls/hr Documented By: ISH Potassium Chloride (Potassium Chloride/H20) 40 meq in 100 mls @ 25 mls/hr IV ONCE ONE Stop: 05/26/22 13:57 Insulin Human Lispro (Insulin Lispro 100 Unit/Ml 3 Ml Vial) 0 unit SUBCUT Q6H [facility]; Protocol Last Admin: 05/26/22 05:36 Dose: 2 unit Documented By: LUIS Pantoprazole Sodium (Pantoprazole Sodium 40 Mg/10 Ml Vial) 40 mg IVPUSH DAILY@0630 [facility] Last Admin: 05/26/22 05:36 Dose: 40 mg Documented By: LUIS Pharmacy Consult (Consult Rx Perform Med Rec) 1 each MISCELLANE ONCE PRN PRN Reason: Consult order Sodium Chloride (0.9 % Sodium Chloride Flush 3 Ml Syringe) 3 ml IVFLUSH QSHIFT [facility] Last Admin: 05/26/22 09:01 Dose: 3 ml Documented By: ISH Topiramate (Topiramate 100 Mg Tablet) 200 mg PO BID [facility] Last Admin: 05/26/22 09:01 Dose: 200 mg Documented By: ISH Venlafaxine HCl (Venlafaxine Hcl 25 Mg Tablet) 75 mg PO BEDTIME [facility] Last Admin: 05/25/22 21:27 Dose: 75 mg Documented By: FOREIGN Labs CBC & Chem 7: 05/26/22 05:18 05/26/22 05:18 Labs: Laboratory Results - last 24 hr 05/25/22 05/25/22 05/25/22 05:10 12:02 17:45 MCV MCH MCHC RDW Plt Count MPV Absolute Nucleated RBC Nucleated RBC % (auto) VBG pH VBG pCO2 VBG pO2 VBG HCO3 VBG O2 Saturation VBG Base Excess Anion Gap Estim Creat Clear Calc Estimated GFR POC Glucose 158 H 125 H Random Glucose Lactic Acid Calcium Phosphorus Magnesium Albumin Triglycerides 126 Ur Random Sodium 05/25/22 05/26/22 05/26/22 Unknown 00:21 05:18 MCV 91.5 MCH 29.7 MCHC 32.5 RDW 14.6 Plt Count 94 L D MPV 10.2 Absolute Nucleated RBC 0.000 Nucleated RBC % (auto) 0.0 VBG pH VBG pCO2 VBG pO2 VBG HCO3 VBG O2 Saturation VBG Base Excess Anion Gap Estim Creat Clear Calc Estimated GFR POC Glucose 182 H Random Glucose Lactic Acid Calcium Phosphorus Magnesium Albumin Triglycerides Ur Random Sodium < 20.0 05/26/22 05/26/22 05/26/22 05:18 05:18 05:20 MCV MCH MCHC RDW Plt Count MPV Absolute Nucleated RBC Nucleated RBC % (auto) VBG pH 7.37 VBG pCO2 39 VBG pO2 46 VBG HCO3 23 VBG O2 Saturation 75.0 VBG Base Excess -1.6 Anion Gap 13 Estim Creat Clear Calc 43.0 Estimated GFR 33 POC Glucose Random Glucose 187 H Lactic Acid 1.2 Calcium 7.3 L Phosphorus 3.9 Magnesium 2.4 Albumin 2.8 L Triglycerides Ur Random Sodium 05/26/22 05:24 MCV MCH MCHC RDW Plt Count MPV Absolute Nucleated RBC Nucleated RBC % (auto) VBG pH VBG pCO2 VBG pO2 VBG HCO3 VBG O2 Saturation VBG Base Excess Anion Gap Estim Creat Clear Calc Estimated GFR POC Glucose 166 H Random Glucose Lactic Acid Calcium Phosphorus Magnesium Albumin Triglycerides Ur Random Sodium Microbiology Microbiology Results: Microbiology 05/23/22 Unknown Gram Stain - Final Peritoneal Fluid Routine Culture - Preliminary Escherichia coli Anaerobic Culture - Preliminary Culture in progress. Procedures Date of Service Date of Service: 05/26/22 Arterial Line Size (Gauge): 16 Progress Note: A&P Assessment and plan (1) Perforated viscus: Status: Acute Assessment and Plan: remains on vent trending down on pressors good UO labs ok- creatinine stable on TPN await return of GI function slow improvement anticipate prolonged ileus, protracted postop course Time Spent With Patient Time: Total time spent is greater than 50% in coordination of care (as documented) at patient's floor/unit and/or counseling patient: Quality Stroke Does the patient have a stroke diagnosis?: No VTE Prior VTE?: No VTE Risk Level:: Medical - moderate - high VTE Device Contraindication: N/A - Device Ordered VTE Drug Contraindication: N/A - Med Ordered
[2022-05-26] MEDS: Potassium Chloride/H20 40 MEQ/100 ML PIGGYBACK 25 MEQ IV (10:40)
[2022-05-26 11:30] LABS: Glucose, Whole Blood 189 mg/dL (60-115)
[2022-05-26] MEDS: HYDROmorphone HCl 1 MG/ML SYRINGE IVPUSH ×3 (12:25→14:58)
--- NOTE | 2022-05-26 15:16 | MHC.CM.PN ---
Brandon requested to speak w/ Case Management re: [place] paperwork. CM to send med records of ICU stay to PCP, will bring FMLA paperwork to PCP office for completion.
--- NOTE | 2022-05-26 15:25 | PM.GIPN ---
Subjective Subjective Date of Service: 05/26/22 Interval History: opens eyes to examiner Critical Care Time (minutes): 0 Physical Exam Vital Signs: Vital Signs: Last Vital Signs Temp 97.3 F 05/26/22 14:00 Pulse 87 05/26/22 14:00 Resp 10 L 05/26/22 14:00 BP 116/61 05/26/22 14:00 Pulse Ox 94 05/26/22 14:00 O2 Del Method 05/26/22 14:00 O2 Flow Rate 3 05/23/22 14:38 FiO2 30 05/26/22 14:00 Oxygen Flow Rate 40 05/25/22 17:21 BMI result Body Mass Index 40.6 GI: Other: abdomen is soft, dressings in place Objective Data Labs CBC & Chem 7: 05/26/22 05:18 05/26/22 05:18 Microbiology Microbiology Results: Microbiology 05/23/22 Unknown Peritoneal Fluid Gram Stain - Final 05/23/22 Unknown Peritoneal Fluid Routine Culture - Preliminary Escherichia coli 05/23/22 Unknown Peritoneal Fluid Anaerobic Culture - Preliminary Culture in progress. 05/19/22 08:49 Blood - Venous Blood Culture - Final No growth after 5 days. 05/19/22 08:49 Blood - Venous Blood Culture - Final No growth after 5 days. Procedures Date of Service Date of Service: 05/26/22 Arterial Line Size (Gauge): 16 Progress Note: A&P Assessment and plan (1) Perforated viscus: Status: Acute Assessment and Plan: slow progress I hav asked Dr Quinonez to review path re: any evidence of Crohns Time Spent With Patient Time: Total time spent is greater than 50% in coordination of care (as documented) at patient's floor/unit and/or counseling patient: Quality Stroke Does the patient have a stroke diagnosis?: No VTE Prior VTE?: No VTE Risk Level:: Medical - moderate - high VTE Device Contraindication: N/A - Device Ordered VTE Drug Contraindication: N/A - Med Ordered
[2022-05-26] MEDS: levoFLOXacin/D5W 750 MG/150 ML PIGGYBACK 100 MG IV (15:55)
[2022-05-26] MEDS: Hydrocortisone Sod Succ/PF 100 MG VIAL 25 MG IVPUSH (16:04)
[2022-05-26 17:52] LABS: Glucose, Whole Blood 177 mg/dL (60-115)
[2022-05-26 19:40] LABS: ABG Base Excess -2.9 mmol/L; ABG HCO3 23 mmol/L (22-26); ABG pCO2 44 mmHg (32-45); ABG pH 7.32 (7.35-7.45); ABG pO2 82 mmHg (83-108)
[2022-05-26 19:53] LABS: Hemoglobin 7.8 g/dl (12.0-16.0)
[2022-05-26 20:00] LABS: Hematocrit 24.7 % (37.0-47.0); Mean Corpuscular HGB Conc 31.6 g/dl (31.0-35.0); Mean Corpuscular Hemoglobin 29.3 pg (27.0-33.0); Mean Corpuscular Volume 92.9 fL (80.0-98.0); Mean Platelet Volume 10.5 fL (9.4-12.3); NRBC Pct Auto 0.2 /100WBC (0.0-0.2); Red Blood Count 2.66 X10*6/uL (4.20-5.50); Red Cell Distribution Width 14.9 % (11.0-16.0); White Blood Count 13.2 X10*3/uL (4.8-10.8)
[2022-05-26 20:07] LABS: Platelet Count 87 X10*3/uL (160-400)
[2022-05-26 20:22] LABS: Alanine Aminotransferase 23 U/L (0-31); Albumin Level 2.6 g/dL (3.5-5.0); Alkaline Phosphatase 61 U/L (39-117); Anion Gap 12 (12-20); Aspartate Amino Transferase 36 U/L (5-31); Bilirubin Total 0.4 mg/dL (0.0-1.0); Blood Urea Nitrogen 35 mg/dL (9-16); Calcium 7.4 mg/dL (8.4-10.2); Carbon Dioxide 23 mmol/L (22-29); Chloride 114 mmol/L (96-108); Creatinine Clr Calc Pharmacy 52.7; Estimated Glomerular Filt Rate 42; Glucose Random 192 mg/dL (60-115); Potassium 4.2 mmol/L (3.3-5.1); Sodium 145 mmol/L (135-145); Total Protein 4.3 g/dL (6.5-8.0)
[2022-05-26 20:33] LABS: Band Neutrophils Percent 10 % (3-5); Lymphocytes Absolute Manual 0.9 X10*3/uL (1.2-4.9); Lymphocytes Percent Manual 7 % (20-40); Monocytes Absolute Manual 0.1 X10*3/uL (0.1-1.2); Monocytes Percent Manual 1 % (2-11); Neutrophils Absolute Manual 12.1 X10*3/uL (2.0-8.3); Neutrophils Percent Manual 82 % (45-73)
[2022-05-26 20:34] LABS: RBC Morphology NOTED
[2022-05-26 20:36] LABS: Hypochromasia 1+ (5-14) /OIF; Platelet Estimate DECREASED (NORMAL); Platelet Morphology Comment NORMAL; Polychromasia 1+ (0-2) /OIF
[2022-05-26 20:37] LABS: Dohle Bodies PRESENT
[2022-05-26] MEDS: Venlafaxine HCL 25 MG TABLET 75 MG PO (21:16)
[2022-05-27] VITALS (37 sets, daily range): BP systolic 93–170; BP diastolic 55–90; PULSE 83–120; RESP 12–36; TEMP 34.4–38.1; O2SAT 90–98
[2022-05-27] MEDS: Albumin Human 25 % 100 ML IV ×6 (00:06→23:20)
[2022-05-27] MEDS: propofoL 1,000 MG/100 ML VIAL 7.18 MG IVCONT ×2 (00:10→06:14)
[2022-05-27] MEDS: Insulin Lispro 100 UNIT/ML 3 ML VIAL SUBCUT ×4 (00:15→17:46)
[2022-05-27] MEDS: Calcium Gluconate/NaCl,Iso-Osm 1 GM/50 ML PLAST..BAG IV (00:19)
[2022-05-27] MEDS: 0.9 % Sodium Chloride Flush 3 ML SYRINGE IVFLUSH ×3 (00:19→17:45)
[2022-05-27 00:38] LABS: Glucose, Whole Blood 157 mg/dL (60-115)
[2022-05-27] MEDS: Hydrocortisone Sod Succ/PF 100 MG VIAL 25 MG IVPUSH ×2 (04:16→14:51)
[2022-05-27] MEDS: HYDROmorphone HCl 1 MG/ML SYRINGE IVPUSH ×2 (04:23→09:11)
[2022-05-27] MEDS: Heparin Sodium,Porcine 5,000 UNIT/ML VIAL 5000 UNIT SUBCUT (04:24)
[2022-05-27 05:27] LABS: VBG Base Excess -0.8 mmol/L; VBG HCO3 23 mmol/L (22-26); VBG pCO2 36 mmHg; VBG pH 7.41 (7.32-7.43); VBG pO2 52 mmHg
[2022-05-27 05:28] LABS: Venous Blood Gas Refer to POC result
[2022-05-27 05:36] LABS: Mean Corpuscular HGB Conc 31.8 g/dl (31.0-35.0); Mean Corpuscular Hemoglobin 29.5 pg (27.0-33.0); Mean Corpuscular Volume 92.6 fL (80.0-98.0); Mean Platelet Volume 11.1 fL (9.4-12.3); Red Blood Count 2.17 X10*6/uL (4.20-5.50); Red Cell Distribution Width 14.9 % (11.0-16.0); White Blood Count 8.2 X10*3/uL (4.8-10.8)
[2022-05-27 05:42] LABS: Alanine Aminotransferase 18 U/L (0-31); Albumin Level 3.6 g/dL (3.5-5.0); Alkaline Phosphatase 40 U/L (39-117); Anion Gap 13 (12-20); Aspartate Amino Transferase 25 U/L (5-31); Bilirubin Total 0.6 mg/dL (0.0-1.0); Blood Urea Nitrogen 37 mg/dL (9-16); Calcium 8.1 mg/dL (8.4-10.2); Carbon Dioxide 24 mmol/L (22-29); Chloride 114 mmol/L (96-108); Creatinine Clr Calc Pharmacy 53.1; Estimated Glomerular Filt Rate 42; Glucose Random 163 mg/dL (60-115); Magnesium 2.4 mg/dL (1.6-2.6); Phosphorus 2.2 mg/dL (2.7-4.5); Platelet Count 69 X10*3/uL (160-400); Potassium 3.9 mmol/L (3.3-5.1); Sodium 147 mmol/L (135-145); Total Protein 4.9 g/dL (6.5-8.0)
[2022-05-27 05:43] LABS: Hematocrit 20.1 % (37.0-47.0); Hemoglobin 6.4 g/dl (12.0-16.0)
[2022-05-27 05:49] LABS: Prothrombin Time 11.6 SEC (10.0-13.1)
[2022-05-27] MEDS: Pantoprazole Sodium 40 MG/10 ML VIAL IVPUSH (06:18)
[2022-05-27] MEDS: Potassium Phosphate/NS 15 MMOL/250 ML PLAST..BAG 62.5 MMOL IV (06:20)
--- NOTE | 2022-05-27 06:42 | PC.NURSE ---
HGB LOW 6.4...BLOOD ORDERED. JUST DRAWN FOR TYPE AND SCREEN. PT RESTLESS AT TIMES. PROPOFOL HAD TO BE RESTARTED LAST NIGHT DUE TO RESTLESSNESS AND THRASHING HEAD SIDE TO SIDE. CURRENTLY INFUSING AT 30 MCG/KG/MIN. RECEIVED 4 BOTTLES OF ALBUMIN ORDERED FOR LOW ALB LEVEL AT 1930. ALSO CALCIUM GLUC FOR LOW CALCIUM LEVEL. AFTER THIS MORNINGS BLOOD DRAW, PT RECEIVING POTASSIUM PHOS ORDERED. U/O 30-50 ML BEFORE ALBUMIN AND 60-75 ML/HR AFTER ALBUMIN INFUSION. MONITOR SHOWS NSR, RATE 90'S ON ESMOLOL AT 10 MCG/KG/MIN. BP STABLE VIA VICK.
[2022-05-27] MEDS: HYDROmorphone HCl 2 MG/ML VIAL IVPUSH ×10 (06:50→23:19)
--- NOTE | 2022-05-27 09:03 | PM.PNGS ---
Subjective Subjective Date of Service: 05/27/22 Interval history: Sedated and on vent. Physical Exam Vital Signs: Vital Signs: Last Vital Signs Temp 98.4 F 05/27/22 08:00 Pulse 103 H 05/27/22 08:00 Resp 15 05/27/22 08:00 BP 122/66 05/27/22 08:00 Pulse Ox 95 05/27/22 08:00 O2 Del Method 05/27/22 08:00 O2 Flow Rate 3 05/23/22 14:38 FiO2 30 05/27/22 08:00 Oxygen Flow Rate 30 05/26/22 18:00 BMI result Body Mass Index 40.6 Const: Other: Sedated, does not respond to voice Resp: Other: On vent, tidal volume 400, peep 5, 30% FiO2, O2 sat 96% GI: Other: Incision and intact. Small amount of serous discharge noted from sandy. Ostomy is pink and viable but no stool or gas noted. Skin: Other: Warm and dry, no rash Objective Data Active Medications Acetaminophen (Acetaminophen Supp 325 Mg Supp.Rect) 975 mg [place] Q8H PRN PRN Reason: Fever Chlorhexidine Gluconate (Chlorhexidine Gluc Oral Rinse 15 Ml Mouthwash) 15 ml BUCCAL TID [facility] Last Admin: 05/26/22 21:13 Dose: 15 ml Documented By: MARIAJOSE Fentanyl (Fentanyl Citrate/Pf 100 Mcg/2 Ml Vial) 100 mcg IVPUSH Q5M PRN; Protocol PRN Reason: short term pain or WOB Hydrocortisone Sodium Succinate (Hydrocortisone Sod Succ/Pf 100 Mg Vial) 25 mg IVPUSH Q12H [facility] Stop: 05/27/22 16:01 Last Admin: 05/27/22 04:16 Dose: 25 mg Documented By: MARIAJOSE Hydromorphone HCl (Hydromorphone Hcl 1 Mg/Ml Syringe) 1 mg IVPUSH Q1H PRN; Protocol PRN Reason: mild pain Last Admin: 05/27/22 04:23 Dose: 1 mg Documented By: MARIAJOSE Hydromorphone HCl (Hydromorphone Hcl 2 Mg/Ml Vial) 2 mg IVPUSH Q1H PRN; Protocol PRN Reason: severe pain Last Admin: 05/27/22 06:50 Dose: 2 mg Documented By: MARIAJOSE Propofol (Diprivan) 1,000 mg in 100 mls @ 0 mls/hr IVCONT .Q0M [facility]; Protocol Last Admin: 05/27/22 06:14 Dose: 15 mcg/kg/min, 7.18 mls/hr Documented By: MARIAJOSE Fentanyl (Sublimaze/Ns) 1,000 mcg in 100 mls @ 0 mls/hr IVCONT .Q0M [facility]; Protocol Last Titration: 05/26/22 05:07 Dose: 0 mcg/hr, 0 mls/hr Documented By: LUIS Esmolol HCl (Brevibloc/Nacl) 2,500 mg in 250 mls @ 0 mls/hr IVCONT .Q0M [facility]; Protocol Last Titration: 05/26/22 12:17 Dose: 10 mcg/kg/min, 4.79 mls/hr Documented By: ISH Norepinephrine Bitartrate (Levophed) 8 mg in 250 mls @ 0 mls/hr IVCONT .Q0M [facility]; Protocol Last Titration: 05/26/22 17:32 Dose: 0 mcg/kg/min, 0 mls/hr Documented By: MADALYN Meropenem 1 gm/ Sodium (Chloride) 100 mls @ 200 mls/hr IV Q12H [facility] Last Infusion: 05/26/22 22:33 Dose: 0 mls/hr Documented By: MARIAJOSE Magnesium Sulfate 10 meq/Potassium Phosphate 40 mmol/Calcium Gluconate 9.3 meq/Potassium Acetate 100 meq/Multivitamins 11 ml/ Trace Metals 1.1 ml/ Amino Acids/Dextrose 1,800 mls @ 75 mls/hr IV DAILY@1800 [facility] Stop: 05/27/22 17:59 Last Admin: 05/26/22 18:00 Dose: 75 mls/hr Documented By: MADALYN Potassium Phosphate (Kphos) 15 mmol in 250 mls @ 62.5 mls/hr IV Q4H [facility] Stop: 05/27/22 13:59 Last Admin: 05/27/22 06:20 Dose: 62.5 mls/hr Documented By: MARIAJOSE Dextrose (D5w) 1,000 mls @ 125 mls/hr IVCONT .Q8H [facility] Stop: 05/27/22 16:29 Insulin Human Lispro (Insulin Lispro 100 Unit/Ml 3 Ml Vial) 0 unit SUBCUT Q6H [facility]; Protocol Last Admin: 05/27/22 06:16 Dose: 2 unit Documented By: MARIAJOSE Non-Formulary Medication (Fremanezumab-Vfrm [Ajovy Syringe]) 1.5 mg SUBCUT Q30D [facility] Pantoprazole Sodium (Pantoprazole Sodium 40 Mg/10 Ml Vial) 40 mg IVPUSH DAILY@0630 [facility] Last Admin: 05/27/22 06:18 Dose: 40 mg Documented By: MARIAJOSE Pharmacy Consult (Consult Rx Perform Med Rec) 1 each MISCELLANE ONCE PRN PRN Reason: Consult order Sodium Chloride (0.9 % Sodium Chloride Flush 3 Ml Syringe) 3 ml IVFLUSH QSHIFT [facility] Last Admin: 05/27/22 00:19 Dose: 3 ml Documented By: MARIAJOSE Topiramate (Topiramate 100 Mg Tablet) 200 mg PO BID [facility] Last Admin: 05/26/22 21:16 Dose: 200 mg Documented By: MARIAJOSE Venlafaxine HCl (Venlafaxine Hcl 25 Mg Tablet) 75 mg PO BEDTIME [facility] Last Admin: 05/26/22 21:16 Dose: 75 mg Documented By: MARIAJOSE Labs CBC & Chem 7: 05/27/22 05:10 05/27/22 05:10 Labs: Laboratory Results - last 24 hr 05/26/22 05/26/22 05/26/22 11:25 17:48 19:34 MCV MCH MCHC RDW Plt Count MPV Immature Gran % (Auto) Neut % (Auto) Lymph % (Auto) Kaufman % (Auto) Eos % (Auto) Baso % (Auto) Lymph # (Auto) Kaufman # (Auto) Eos # (Auto) Baso # (Auto) Abs Immat Gran (auto) Absolute Neuts (auto) Absolute Nucleated RBC Nucleated RBC % (auto) Neutrophils % (Manual) Band Neutrophils % Lymphocytes % (Manual) Monocytes % (Manual) Abs Neuts (Manual) Lymphocytes # (Manual) Monocytes # (Manual) Dohle Bodies Platelet Estimate Plt Morphology Comment RBC Morphology Polychromasia Hypochromasia PT INR O2 Saturation 96.0 ABG pH at Pt Temp 7.32 L ABG pCO2 at Pt Temp 44 ABG pO2 at Pt Temp 82 L ABG HCO3 23 ABG Base Excess (Actual) -2.9 VBG pH VBG pCO2 VBG pO2 VBG HCO3 VBG O2 Saturation VBG Base Excess Anion Gap Estim Creat Clear Calc Estimated GFR POC Glucose 189 H 177 H Random Glucose Calcium Phosphorus Magnesium Total Bilirubin AST ALT Alkaline Phosphatase Total Protein Albumin Blood Type Antibody Screen Crossmatch 05/26/22 05/26/22 05/26/22 19:36 19:36 23:57 MCV 92.9 MCH 29.3 MCHC 31.6 RDW 14.9 Plt Count 87 L MPV 10.5 Immature Gran % (Auto) Cancelled Neut % (Auto) Cancelled Lymph % (Auto) Cancelled Kaufman % (Auto) Cancelled Eos % (Auto) Cancelled Baso % (Auto) Cancelled Lymph # (Auto) Cancelled Kaufman # (Auto) Cancelled Eos # (Auto) Cancelled Baso # (Auto) Cancelled Abs Immat Gran (auto) Cancelled Absolute Neuts (auto) Cancelled Absolute Nucleated RBC 0.020 H Nucleated RBC % (auto) 0.2 Neutrophils % (Manual) 82 H Band Neutrophils % 10 H Lymphocytes % (Manual) 7 L Monocytes % (Manual) 1 L Abs Neuts (Manual) 12.1 H Lymphocytes # (Manual) 0.9 L Monocytes # (Manual) 0.1 Dohle Bodies PRESENT Platelet Estimate DECREASED Plt Morphology Comment NORMAL RBC Morphology NOTED Polychromasia 1+ (0-2) Hypochromasia 1+ (5-14) PT INR O2 Saturation ABG pH at Pt Temp ABG pCO2 at Pt Temp ABG pO2 at Pt Temp ABG HCO3 ABG Base Excess (Actual) VBG pH VBG pCO2 VBG pO2 VBG HCO3 VBG O2 Saturation VBG Base Excess Anion Gap 12 Estim Creat Clear Calc 52.7 Estimated GFR 42 POC Glucose 157 H Random Glucose 192 H Calcium 7.4 L Phosphorus Magnesium Total Bilirubin 0.4 AST 36 H D ALT 23 Alkaline Phosphatase 61 D Total Protein 4.3 L Albumin 2.6 L Blood Type Antibody Screen Crossmatch 05/27/22 05/27/22 05/27/22 05:10 05:10 05:10 MCV 92.6 MCH 29.5 MCHC 31.8 RDW 14.9 Plt Count 69 L MPV 11.1 Immature Gran % (Auto) Neut % (Auto) Lymph % (Auto) Kaufman % (Auto) Eos % (Auto) Baso % (Auto) Lymph # (Auto) Kaufman # (Auto) Eos # (Auto) Baso # (Auto) Abs Immat Gran (auto) Absolute Neuts (auto) Absolute Nucleated RBC 0.000 Nucleated RBC % (auto) 0.0 Neutrophils % (Manual) Band Neutrophils % Lymphocytes % (Manual) Monocytes % (Manual) Abs Neuts (Manual) Lymphocytes # (Manual) Monocytes # (Manual) Dohle Bodies Platelet Estimate Plt Morphology Comment RBC Morphology Polychromasia Hypochromasia PT 11.6 INR 1.0 O2 Saturation ABG pH at Pt Temp ABG pCO2 at Pt Temp ABG pO2 at Pt Temp ABG HCO3 ABG Base Excess (Actual) VBG pH VBG pCO2 VBG pO2 VBG HCO3 VBG O2 Saturation VBG Base Excess Anion Gap 13 Estim Creat Clear Calc 53.1 Estimated GFR 42 POC Glucose Random Glucose 163 H Calcium 8.1 L D Phosphorus 2.2 L Magnesium 2.4 Total Bilirubin 0.6 AST 25 ALT 18 Alkaline Phosphatase 40 D Total Protein 4.9 L Albumin 3.6 D Blood Type Antibody Screen Crossmatch 05/27/22 05/27/22 05:21 06:38 MCV MCH MCHC RDW Plt Count MPV Immature Gran % (Auto) Neut % (Auto) Lymph % (Auto) Kaufman % (Auto) Eos % (Auto) Baso % (Auto) Lymph # (Auto) K[place]man # (Auto) Eos # (Auto) Baso # (Auto) Abs Immat Gran (auto) Absolute Neuts (auto) Absolute Nucleated RBC Nucleated RBC % (auto) Neutrophils % (Manual) Band Neutrophils % Lymphocytes % (Manual) Monocytes % (Manual) Abs Neuts (Manual) Lymphocytes # (Manual) Monocytes # (Manual) Dohle Bodies Platelet Estimate Plt Morphology Comment RBC Morphology Polychromasia Hypochromasia PT INR O2 Saturation ABG pH at Pt Temp ABG pCO2 at Pt Temp ABG pO2 at Pt Temp ABG HCO3 ABG Base Excess (Actual) VBG pH 7.41 VBG pCO2 36 VBG pO2 52 VBG HCO3 23 VBG O2 Saturation 86.0 VBG Base Excess -0.8 Anion Gap Estim Creat Clear Calc Estimated GFR POC Glucose Random Glucose Calcium Phosphorus Magnesium Total Bilirubin AST ALT Alkaline Phosphatase Total Protein Albumin Blood Type B Positive Antibody Screen NEGATIVE Crossmatch See Detail Microbiology Microbiology Results: Microbiology 05/23/22 Unknown Gram Stain - Final Peritoneal Fluid Routine Culture - Preliminary Escherichia coli Anaerobic Culture - Preliminary Culture in progress. Procedures Date of Service Date of Service: 05/27/22 Arterial Line Size (Gauge): 16 Progress Note: A&P Assessment and plan (1) Perforated viscus: Status: Acute Assessment and Plan: Pod 2 following sigmoid colectomy and ostomy. She remains on the vent, sedated, on pressors. H/H 6.4/20.1; 1 unit PRBCs ordered for today. Ostomy viable, no stool noted. Postoperative ileus expected. Awaiting return of bowel function. Time Spent With Patient Time: Total time spent is greater than 50% in coordination of care (as documented) at patient's floor/unit and/or counseling patient: Quality Stroke Does the patient have a stroke diagnosis?: No VTE Prior VTE?: No VTE Risk Level:: Medical - moderate - high VTE Device Contraindication: N/A - Device Ordered VTE Drug Contraindication: N/A - Med Ordered
[2022-05-27] MEDS: Topiramate 100 MG TABLET 200 MG PO ×2 (09:36→20:55)
[2022-05-27] MEDS: Chlorhexidine Gluc Oral Rinse 15 ML MOUTHWASH BUCCAL ×3 (09:36→20:51)
[2022-05-27] MEDS: dexmedeTOMIDidine HCL/NS 400 MCG/100 ML INFUS..BTL 25.98 MCG IVCONT (10:00)
[2022-05-27] MEDS: Dextrose 5 % 1,000 ML 125 ML IVCONT (10:14)
[2022-05-27 12:03] LABS: Glucose, Whole Blood 211 mg/dL (60-115)
[2022-05-27] MEDS: dexmedeTOMIDidine HCL/NS 400 MCG/100 ML INFUS..BTL 38.96 MCG IVCONT ×3 (12:18→23:25)
--- NOTE | 2022-05-27 14:48 | PM.CCPN ---
Subjective Subjective Date of Service: 05/27/22 Interval History: 62-year-old female with a longstanding history of Crohn's disease status post lower endoscopy with apparent perforation and extensive stool soilage and peritonitis with peritoneal fluid of course growing E coli but probably still a mixed organism infection and currently on meropenem for that coverage and she still remains intubated but is currently on pressure support and dexmedetomidine as sedation and is just having her pain treated with hydromorphone she is off pressors and is on TPN with intact incision and of course persistent ileus and probable bibasilar atelectasis but no distinct infiltrate on chest x-ray and good bedside echo for LV systolic function persistent normal sinus rhythm stable mean blood pressure of 74 respiratory rate of 16 no use of accessory muscles 93% oxygen saturation Critical Care Time (minutes): 45 Physical Exam Vital Signs: Vital Signs: Last Vital Signs Temp 99.7 F 05/27/22 14:00 Pulse 96 05/27/22 14:00 Resp 29 H 05/27/22 14:46 BP 98/57 L 05/27/22 14:00 Pulse Ox 93 05/27/22 14:00 O2 Del Method 05/27/22 14:00 O2 Flow Rate 3 05/23/22 14:38 FiO2 30 05/27/22 14:00 Oxygen Flow Rate 30 05/26/22 18:00 BMI result Body Mass Index 40.6 off the propofol the she is communicative appropriate arousable bedside echo with good LV function lungs without adventitious sounds or accessory muscle use good tidal volumes and she does not have much minutes ventilatory requirement but she does on the end-tidal CO2 have what looks like a little a bit of an obstructive pattern and she was a former smoker abdomen is silent diffuse peripheral edema but no skin breakdown Objective Data Labs CBC & Chem 7: 05/27/22 05:10 05/27/22 05:10 Labs: Laboratory Results - last 24 hr 05/26/22 05/26/22 05/26/22 17:48 19:34 19:36 WBC 13.2 H RBC 2.66 L Hgb 7.8 L Hct 24.7 L MCV 92.9 MCH 29.3 MCHC 31.6 RDW 14.9 Plt Count 87 L MPV 10.5 Immature Gran % (Auto) Cancelled Neut % (Auto) Cancelled Lymph % (Auto) Cancelled [place] % (Auto) Cancelled Eos % (Auto) Cancelled Baso % (Auto) Cancelled Lymph # (Auto) Cancelled [place] # (Auto) Cancelled Eos # (Auto) Cancelled Baso # (Auto) Cancelled Abs Immat Gran (auto) Cancelled Absolute Neuts (auto) Cancelled Absolute Nucleated RBC 0.020 H Nucleated RBC % (auto) 0.2 Neutrophils % (Manual) 82 H Band Neutrophils % 10 H Lymphocytes % (Manual) 7 L Monocytes % (Manual) 1 L Abs Neuts (Manual) 12.1 H Lymphocytes # (Manual) 0.9 L Monocytes # (Manual) 0.1 Dohle Bodies PRESENT Platelet Estimate DECREASED Plt Morphology Comment NORMAL RBC Morphology NOTED Polychromasia 1+ (0-2) Hypochromasia 1+ (5-14) PT INR O2 Saturation 96.0 ABG pH at Pt Temp 7.32 L ABG pCO2 at Pt Temp 44 ABG pO2 at Pt Temp 82 L ABG HCO3 23 ABG Base Excess (Actual) -2.9 VBG pH VBG pCO2 VBG pO2 VBG HCO3 VBG O2 Saturation VBG Base Excess Sodium Potassium Chloride Carbon Dioxide Anion Gap BUN Creatinine Estim Creat Clear Calc Estimated GFR POC Glucose 177 H Random Glucose Calcium Phosphorus Magnesium Total Bilirubin AST ALT Alkaline Phosphatase Total Protein Albumin Blood Type Antibody Screen Crossmatch 05/26/22 05/26/22 05/27/22 19:36 23:57 05:10 WBC 8.2 RBC 2.17 L Hgb 6.4 L* Hct 20.1 L* MCV 92.6 MCH 29.5 MCHC 31.8 RDW 14.9 Plt Count 69 L MPV 11.1 Immature Gran % (Auto) Neut % (Auto) Lymph % (Auto) [place] % (Auto) Eos % (Auto) Baso % (Auto) Lymph # (Auto) [place] # (Auto) Eos # (Auto) Baso # (Auto) Abs Immat Gran (auto) Absolute Neuts (auto) Absolute Nucleated RBC 0.000 Nucleated RBC % (auto) 0.0 Neutrophils % (Manual) Band Neutrophils % Lymphocytes % (Manual) Monocytes % (Manual) Abs Neuts (Manual) Lymphocytes # (Manual) Monocytes # (Manual) Dohle Bodies Platelet Estimate Plt Morphology Comment RBC Morphology Polychromasia Hypochromasia PT INR O2 Saturation ABG pH at Pt Temp ABG pCO2 at Pt Temp ABG pO2 at Pt Temp ABG HCO3 ABG Base Excess (Actual) VBG pH VBG pCO2 VBG pO2 VBG HCO3 VBG O2 Saturation VBG Base Excess Sodium 145 Potassium 4.2 D Chloride 114 H Carbon Dioxide 23 Anion Gap 12 BUN 35 H Creatinine 1.29 Estim Creat Clear Calc 52.7 Estimated GFR 42 POC Glucose 157 H Random Glucose 192 H Calcium 7.4 L Phosphorus Magnesium Total Bilirubin 0.4 AST 36 H D ALT 23 Alkaline Phosphatase 61 D Total Protein 4.3 L Albumin 2.6 L Blood Type Antibody Screen Crossmatch 05/27/22 05/27/22 05/27/22 05:10 05:10 05:21 WBC RBC Hgb Hct MCV MCH MCHC RDW Plt Count MPV Immature Gran % (Auto) Neut % (Auto) Lymph % (Auto) [place] % (Auto) Eos % (Auto) Baso % (Auto) Lymph # (Auto) [place] # (Auto) Eos # (Auto) Baso # (Auto) Abs Immat Gran (auto) Absolute Neuts (auto) Absolute Nucleated RBC Nucleated RBC % (auto) Neutrophils % (Manual) Band Neutrophils % Lymphocytes % (Manual) Monocytes % (Manual) Abs Neuts (Manual) Lymphocytes # (Manual) Monocytes # (Manual) Dohle Bodies Platelet Estimate Plt Morphology Comment RBC Morphology Polychromasia Hypochromasia PT 11.6 INR 1.0 O2 Saturation ABG pH at Pt Temp ABG pCO2 at Pt Temp ABG pO2 at Pt Temp ABG HCO3 ABG Base Excess (Actual) VBG pH 7.41 VBG pCO2 36 VBG pO2 52 VBG HCO3 23 VBG O2 Saturation 86.0 VBG Base Excess -0.8 Sodium 147 H Potassium 3.9 Chloride 114 H Carbon Dioxide 24 Anion Gap 13 BUN 37 H Creatinine 1.28 Estim Creat Clear Calc 53.1 Estimated GFR 42 POC Glucose Random Glucose 163 H Calcium 8.1 L D Phosphorus 2.2 L Magnesium 2.4 Total Bilirubin 0.6 AST 25 ALT 18 Alkaline Phosphatase 40 D Total Protein 4.9 L Albumin 3.6 D Blood Type Antibody Screen Crossmatch 05/27/22 05/27/22 06:38 12:01 WBC RBC Hgb Hct MCV MCH MCHC RDW Plt Count MPV Immature Gran % (Auto) Neut % (Auto) Lymph % (Auto) [place] % (Auto) Eos % (Auto) Baso % (Auto) Lymph # (Auto) [place] # (Auto) Eos # (Auto) Baso # (Auto) Abs Immat Gran (auto) Absolute Neuts (auto) Absolute Nucleated RBC Nucleated RBC % (auto) Neutrophils % (Manual) Band Neutrophils % Lymphocytes % (Manual) Monocytes % (Manual) Abs Neuts (Manual) Lymphocytes # (Manual) Monocytes # (Manual) Dohle Bodies Platelet Estimate Plt Morphology Comment RBC Morphology Polychromasia Hypochromasia PT INR O2 Saturation ABG pH at Pt Temp ABG pCO2 at Pt Temp ABG pO2 at Pt Temp ABG HCO3 ABG Base Excess (Actual) VBG pH VBG pCO2 VBG pO2 VBG HCO3 VBG O2 Saturation VBG Base Excess Sodium Potassium Chloride Carbon Dioxide Anion Gap BUN Creatinine Estim Creat Clear Calc Estimated GFR POC Glucose 211 H Random Glucose Calcium Phosphorus Magnesium Total Bilirubin AST ALT Alkaline Phosphatase Total Protein Albumin Blood Type B Positive Antibody Screen NEGATIVE Crossmatch See Detail Microbiology Microbiology Results: Microbiology 05/23/22 Unknown Peritoneal Fluid Gram Stain - Final 05/23/22 Unknown Peritoneal Fluid Routine Culture - Preliminary Escherichia coli 05/23/22 Unknown Peritoneal Fluid Anaerobic Culture - Preliminary Culture in progress. 05/19/22 08:49 Blood - Venous Blood Culture - Final No growth after 5 days. 05/19/22 08:49 Blood - Venous Blood Culture - Final No growth after 5 days. Progress Note: A&P Assessment and plan (1) Septic shock: Status: Acute (2) Perforated viscus: Status: Acute (3) Hypokalemia: Status: Acute (4) Exacerbation of Crohn's disease: Status: Acute (5) Colitis: Status: Acute (6) Acute proctitis: Status: Acute (7) Hives: Status: Acute (8) Hypernatremia: Status: Acute Plan at this point and correcting the hypernatremia with 1 L of D5W continuing the TPN and will slowly wean the degree of pressure support because she is close to extubation barring and other unforeseen complication and it clearly continue the meropenem as I was just informed that were growing Clostridium perfringens as well as the E coli Quality Stroke Does the patient have a stroke diagnosis?: No VTE Prior VTE?: No VTE Risk Level:: Medical - moderate - high VTE Device Contraindication: N/A - Device Ordered VTE Drug Contraindication: N/A - Med Ordered
[2022-05-27] MEDS: dexmedeTOMIDidine HCL/NS 400 MCG/100 ML INFUS..BTL 33.77 MCG IVCONT ×2 (15:23→17:44)
[2022-05-27 17:35] LABS: Glucose, Whole Blood 224 mg/dL (60-115)
[2022-05-27 20:40] LABS: Mean Corpuscular Volume 92.9 fL (80.0-98.0); PLT CLUMP 1; Red Cell Distribution Width 14.8 % (11.0-16.0)
[2022-05-27 20:42] LABS: Hematocrit 24.9 % (37.0-47.0); Hemoglobin 8.1 g/dl (12.0-16.0); Mean Corpuscular HGB Conc 32.5 g/dl (31.0-35.0); Mean Corpuscular Hemoglobin 30.2 pg (27.0-33.0); Mean Platelet Volume 11.8 fL (9.4-12.3); NRBC Pct Auto 0.3 /100WBC (0.0-0.2); Red Blood Count 2.68 X10*6/uL (4.20-5.50)
[2022-05-27 20:47] LABS: Platelet Count 78 X10*3/uL (160-400)
[2022-05-27] MEDS: Venlafaxine HCL 25 MG TABLET 75 MG PO (20:55)
[2022-05-27 21:09] LABS: Alanine Aminotransferase 22 U/L (0-31); Alkaline Phosphatase 52 U/L (39-117); Anion Gap 13 (12-20); Aspartate Amino Transferase 27 U/L (5-31); Bilirubin Total 1.7 mg/dL (0.0-1.0); Blood Urea Nitrogen 40 mg/dL (9-16); Calcium 7.6 mg/dL (8.4-10.2); Carbon Dioxide 22 mmol/L (22-29); Chloride 112 mmol/L (96-108); Creatinine Clr Calc Pharmacy 63.6; Estimated Glomerular Filt Rate 52; Glucose Random 196 mg/dL (60-115); Potassium 4.4 mmol/L (3.3-5.1); Sodium 143 mmol/L (135-145); Total Protein 4.5 g/dL (6.5-8.0)
[2022-05-27] MEDS: Calcium Gluconate/NaCl,Iso-Osm 2 GM/100 ML PLAST..BAG IV (22:24)
[2022-05-27 22:36] LABS: Band Neutrophils Percent 5 % (3-5); Lymphocytes Absolute Manual 0.7 X10*3/uL (1.2-4.9); Lymphocytes Percent Manual 10 % (20-40); Monocytes Absolute Manual 0.3 X10*3/uL (0.1-1.2); Monocytes Percent Manual 4 % (2-11); Neutrophils Percent Manual 81 % (45-73); RBC Morphology NOTED
[2022-05-27 22:37] LABS: Microcytosis 1+ (5-14) /OIF; Platelet Estimate DECREASED (NORMAL); Platelet Morphology Comment NORMAL
[2022-05-27 22:38] LABS: Burr Cells 2+ (3-5) /OIF; Dohle Bodies PRESENT; Hypochromasia 1+ (5-14) /OIF; Polychromasia 1+ (0-2) /OIF; Toxic Granulation PRESENT; Toxic Vacuolation PRESENT
[2022-05-27 23:55] LABS: Glucose, Whole Blood 143 mg/dL (60-115)
[2022-05-28] VITALS (44 sets, daily range): BP systolic 88–163; BP diastolic 48–96; PULSE 99–136; RESP 14–28; TEMP 34.4–38.9; O2SAT 90–97
[2022-05-28] MEDS: 0.9 % Sodium Chloride Flush 3 ML SYRINGE IVFLUSH ×3 (01:31→15:10)
[2022-05-28] MEDS: HYDROmorphone HCl 2 MG/ML VIAL IVPUSH ×4 (01:31→07:07)
[2022-05-28] MEDS: Albumin Human 25 % 100 ML IV ×2 (01:32→02:23)
[2022-05-28] MEDS: dexmedeTOMIDidine HCL/NS 400 MCG/100 ML INFUS..BTL 38.96 MCG IVCONT ×3 (02:00→07:00)
[2022-05-28 05:17] LABS: VBG Base Excess -2.5 mmol/L; VBG HCO3 22 mmol/L (22-26); VBG pCO2 39 mmHg; VBG pH 7.36 (7.32-7.43); VBG pO2 39 mmHg
[2022-05-28 05:26] LABS: Hemoglobin 7.5 g/dl (12.0-16.0); PLT CLUMP 1; WBC ABN SCTR FOR CBC 1
[2022-05-28 05:28] LABS: Hematocrit 23.5 % (37.0-47.0); Mean Corpuscular HGB Conc 31.9 g/dl (31.0-35.0); Mean Platelet Volume 11.2 fL (9.4-12.3); Red Cell Distribution Width 14.8 % (11.0-16.0)
[2022-05-28 05:29] LABS: Platelet Count 90 X10*3/uL (160-400); White Blood Count 6.3 X10*3/uL (4.8-10.8)
[2022-05-28 05:43] LABS: Alanine Aminotransferase 33 U/L (0-31); Albumin Level 3.8 g/dL (3.5-5.0); Alkaline Phosphatase 53 U/L (39-117); Anion Gap 12 (12-20); Aspartate Amino Transferase 45 U/L (5-31); Bilirubin Total 1.5 mg/dL (0.0-1.0); Blood Urea Nitrogen 41 mg/dL (9-16); Carbon Dioxide 23 mmol/L (22-29); Chloride 113 mmol/L (96-108); Creatinine Clr Calc Pharmacy 60.8; Estimated Glomerular Filt Rate 49; Glucose Random 157 mg/dL (60-115); Magnesium 2.1 mg/dL (1.6-2.6); Potassium 4.4 mmol/L (3.3-5.1); Sodium 144 mmol/L (135-145)
[2022-05-28 05:47] LABS: Atypical Lymph Absolute Manual 0.1 x10*3/uL; Atypical Lymphs Percent Manual 2 % (0-6); Band Neutrophils Percent 4 % (3-5); Eosinophils Absolute Manual 0.4 X10*3/uL (0.0-0.4); Eosinophils Percent Manual 6 % (0-4); Lymphocytes Absolute Manual 1.8 X10*3/uL (1.2-4.9); Lymphocytes Percent Manual 28 % (20-40); Monocytes Absolute Manual 0.1 X10*3/uL (0.1-1.2); Monocytes Percent Manual 2 % (2-11); Neutrophils Absolute Manual 3.9 X10*3/uL (2.0-8.3); Neutrophils Percent Manual 58 % (45-73)
[2022-05-28 05:49] LABS: Dohle Bodies PRESENT; Hypochromasia 1+ (5-14) /OIF; Platelet Estimate DECREASED (NORMAL); Platelet Morphology Comment NORMAL; RBC Morphology NOTED; Toxic Granulation PRESENT; Toxic Vacuolation PRESENT
[2022-05-28] MEDS: Pantoprazole Sodium 40 MG/10 ML VIAL IVPUSH (05:49)
[2022-05-28] MEDS: Insulin Lispro 100 UNIT/ML 3 ML VIAL SUBCUT ×3 (05:56→23:47)
[2022-05-28 06:51] LABS: Venous Blood Gas Refer to POC result
[2022-05-28] MEDS: Topiramate 100 MG TABLET 200 MG PO (07:59)
[2022-05-28] MEDS: Chlorhexidine Gluc Oral Rinse 15 ML MOUTHWASH BUCCAL ×3 (07:59→23:10)
[2022-05-28] MEDS: HYDROmorphone HCl 1 MG/ML SYRINGE IVPUSH ×2 (08:14→09:14)
--- NOTE | 2022-05-28 09:30 | PM.PNGS ---
Subjective Subjective Date of Service: 05/28/22 Interval history: Remains intubated and sedated. Off pressors. On TPN. Physical Exam Vital Signs: Vital Signs: Last Vital Signs Temp 102.0 F H 05/28/22 09:00 Pulse 109 H 05/28/22 09:00 Resp 20 05/28/22 09:00 BP 117/67 05/28/22 09:00 Pulse Ox 95 05/28/22 09:00 O2 Del Method 05/28/22 09:00 O2 Flow Rate 3 05/23/22 14:38 FiO2 40 05/28/22 09:00 Oxygen Flow Rate 30 05/26/22 18:00 BMI result Body Mass Index 40.6 Const: Other: Sedated, does not respond to voice Resp: Other: On vent, Assist control, TV 400, rate 14, peep +5, 40% FiO2, O2 sat 5% GI: Other: Incision and intact. Small amount of serous discharge noted from sandy. Ostomy is pink and viable but no stool or gas noted. Skin: Other: Warm and dry, no rash Objective Data Active Medications Acetaminophen (Acetaminophen Supp 325 Mg Supp.Rect) 975 mg IA Q8H PRN PRN Reason: Fever Chlorhexidine Gluconate (Chlorhexidine Gluc Oral Rinse 15 Ml Mouthwash) 15 ml BUCCAL TID [facility] Last Admin: 05/28/22 07:59 Dose: 15 ml Documented By: ISH Fentanyl (Fentanyl Citrate/Pf 100 Mcg/2 Ml Vial) 100 mcg IVPUSH Q5M PRN; Protocol PRN Reason: short term pain or WOB Hydromorphone HCl (Hydromorphone Hcl 1 Mg/Ml Syringe) 1 mg IVPUSH Q1H PRN; Protocol PRN Reason: mild pain Last Admin: 05/28/22 09:14 Dose: 1 mg Documented By: ISH Hydromorphone HCl (Hydromorphone Hcl 2 Mg/Ml Vial) 2 mg IVPUSH Q2H PRN; Protocol PRN Reason: severe pain Norepinephrine Bitartrate (Levophed) 8 mg in 250 mls @ 0 mls/hr IVCONT .Q0M [facility]; Protocol Last Titration: 05/26/22 17:32 Dose: 0 mcg/kg/min, 0 mls/hr Documented By: MADALYN Dexmedetomidine HCl (Precedex) 400 mcg in 100 mls @ 0 mls/hr IVCONT .Q0M [facility]; Protocol Last Titration: 05/28/22 08:09 Dose: 1.5 mcg/kg/hr, 38.96 mls/hr Documented By: ISH Magnesium Sulfate 10 meq/Potassium Phosphate 40 mmol/Calcium Gluconate 9.3 meq/Potassium Acetate 100 meq/Multivitamins 11 ml/ Trace Metals 1.1 ml/ Amino Acids/Dextrose 1,800 mls @ 75 mls/hr IV DAILY@1800 [facility] Stop: 05/28/22 17:59 Last Admin: 05/27/22 17:44 Dose: 75 mls/hr Documented By: FOREIGN Meropenem 1 gm/ Sodium (Chloride) 100 mls @ 200 mls/hr IV Q8H [facility] Last Infusion: 05/28/22 08:40 Dose: 0 mls/hr Documented By: KEIRA Propofol (Diprivan) 1,000 mg in 100 mls @ 0 mls/hr IVCONT .Q0M [facility]; Protocol Insulin Human Lispro (Insulin Lispro 100 Unit/Ml 3 Ml Vial) 0 unit SUBCUT Q6H [facility]; Protocol Last Admin: 05/28/22 05:56 Dose: 2 unit Documented By: MARIAJOSE Non-Formulary Medication (Fremanezumab-Vfrm [Ajovy Syringe]) 1.5 mg SUBCUT Q30D [facility] Pharmacy Consult (Consult Rx Perform Med Rec) 1 each MISCELLANE ONCE PRN PRN Reason: Consult order Sodium Chloride (0.9 % Sodium Chloride Flush 3 Ml Syringe) 3 ml IVFLUSH QSHIFT [facility] Last Admin: 05/28/22 07:08 Dose: 3 ml Documented By: KEIRA Topiramate (Topiramate 100 Mg Tablet) 200 mg PO BID [facility] Last Admin: 05/28/22 07:59 Dose: 200 mg Documented By: ISH Venlafaxine HCl (Venlafaxine Hcl 25 Mg Tablet) 75 mg PO BEDTIME [facility] Last Admin: 05/27/22 20:55 Dose: 75 mg Documented By: MARIAJOSE Labs CBC & Chem 7: 05/28/22 05:12 05/28/22 05:12 Labs: Laboratory Results - last 24 hr 05/27/22 05/27/2222 06:38 12:01 17:32 MCV MCH MCHC RDW Plt Count MPV Immature Gran % (Auto) Neut % (Auto) Lymph % (Auto) [place] % (Auto) Eos % (Auto) Baso % (Auto) Lymph # (Auto) [place] # (Auto) Eos # (Auto) Baso # (Auto) Abs Immat Gran (auto) Absolute Neuts (auto) Absolute Nucleated RBC Nucleated RBC % (auto) Neutrophils % (Manual) Band Neutrophils % Lymphocytes % (Manual) Atypical Lymphs % (Man) Monocytes % (Manual) Eosinophils % (Manual) Abs Neuts (Manual) Lymphocytes # (Manual) Atyp Lymphs # (Manual) Monocytes # (Manual) Eosinophils # (Manual) Toxic Granulation Toxic Vacuolation Dohle Bodies Platelet Estimate Plt Morphology Comment RBC Morphology Polychromasia Hypochromasia Microcytosis [place] Cells VBG pH VBG pCO2 VBG pO2 VBG HCO3 VBG O2 Saturation VBG Base Excess Anion Gap Estim Creat Clear Calc Estimated GFR POC Glucose 211 H 224 H Random Glucose Calcium Phosphorus Magnesium Total Bilirubin AST ALT Alkaline Phosphatase Total Protein Albumin Crossmatch See Detail 05/27/22 05/27/22 05/27/22 20:28 20:28 23:52 MCV 92.9 MCH 30.2 MCHC 32.5 RDW 14.8 Plt Count 78 L MPV 11.8 Immature Gran % (Auto) Cancelled Neut % (Auto) Cancelled Lymph % (Auto) Cancelled [place] % (Auto) Cancelled Eos % (Auto) Cancelled Baso % (Auto) Cancelled Lymph # (Auto) Cancelled [place] # (Auto) Cancelled Eos # (Auto) Cancelled Baso # (Auto) Cancelled Abs Immat Gran (auto) Cancelled Absolute Neuts (auto) Cancelled Absolute Nucleated RBC 0.020 H Nucleated RBC % (auto) 0.3 H Neutrophils % (Manual) 81 H Band Neutrophils % 5 Lymphocytes % (Manual) 10 L Atypical Lymphs % (Man) Monocytes % (Manual) 4 Eosinophils % (Manual) Abs Neuts (Manual) 6.0 Lymphocytes # (Manual) 0.7 L Atyp Lymphs # (Manual) Monocytes # (Manual) 0.3 Eosinophils # (Manual) Toxic Granulation PRESENT Toxic Vacuolation PRESENT Dohle Bodies PRESENT Platelet Estimate DECREASED Plt Morphology Comment NORMAL RBC Morphology NOTED Polychromasia 1+ (0-2) Hypochromasia 1+ (5-14) Microcytosis 1+ (5-14) Susan Cells 2+ (3-5) VBG pH VBG pCO2 VBG pO2 VBG HCO3 VBG O2 Saturation VBG Base Excess Anion Gap 13 Estim Creat Clear Calc 63.6 Estimated GFR 52 POC Glucose 143 H Random Glucose 196 H Calcium 7.6 L D Phosphorus Magnesium Total Bilirubin 1.7 H AST 27 ALT 22 Alkaline Phosphatase 52 D Total Protein 4.5 L Albumin 3.0 L Crossmatch 05/28/22 05/28/22 05/28/22 05:12 05:12 05:12 MCV 94.0 MCH 30.0 MCHC 31.9 RDW 14.8 Plt Count 90 L MPV 11.2 Immature Gran % (Auto) Cancelled Neut % (Auto) Cancelled Lymph % (Auto) Cancelled [place] % (Auto) Cancelled Eos % (Auto) Cancelled Baso % (Auto) Cancelled Lymph # (Auto) Cancelled [place] # (Auto) Cancelled Eos # (Auto) Cancelled Baso # (Auto) Cancelled Abs Immat Gran (auto) Cancelled Absolute Neuts (auto) Cancelled Absolute Nucleated RBC 0.000 Nucleated RBC % (auto) 0.0 Neutrophils % (Manual) 58 Band Neutrophils % 4 Lymphocytes % (Manual) 28 Atypical Lymphs % (Man) 2 Monocytes % (Manual) 2 Eosinophils % (Manual) 6 H Abs Neuts (Manual) 3.9 Lymphocytes # (Manual) 1.8 Atyp Lymphs # (Manual) 0.1 Monocytes # (Manual) 0.1 Eosinophils # (Manual) 0.4 Toxic Granulation PRESENT Toxic Vacuolation PRESENT Dohle Bodies PRESENT Platelet Estimate DECREASED Plt Morphology Comment NORMAL RBC Morphology NOTED Polychromasia Hypochromasia 1+ (5-14) Microcytosis Susan Cells VBG pH 7.36 VBG pCO2 39 VBG pO2 39 VBG HCO3 22 VBG O2 Saturation 66.0 VBG Base Excess -2.5 Anion Gap 12 Estim Creat Clear Calc 60.8 Estimated GFR 49 POC Glucose Random Glucose 157 H Calcium 8.0 L Phosphorus 3.0 Magnesium 2.1 Total Bilirubin 1.5 H AST 45 H D ALT 33 H Alkaline Phosphatase 53 Total Protein 5.0 L Albumin 3.8 D Crossmatch Microbiology Microbiology Results: Microbiology 05/23/22 Unknown Gram Stain - Final Peritoneal Fluid Routine Culture - Final Escherichia coli Anaerobic Culture - Final Clostridium perfringens Bacteroides thetaiotaomicron Procedures Date of Service Date of Service: 05/28/22 Arterial Line Size (Gauge): 16 Progress Note: A&P Assessment and plan (1) Perforated viscus: Status: Acute Assessment and Plan: Pod 3 following sigmoid colectomy and ostomy. She remains on the vent, sedated, off pressors. Hemoglobin 7.5 after 1 unit PRBCs transfused yesterday Ostomy viable, no stool noted, perhaps a small amount of gas. Postoperative ileus as expected. Awaiting return of bowel function. Time Spent With Patient Time: Total time spent is greater than 50% in coordination of care (as documented) at patient's floor/unit and/or counseling patient: Quality Stroke Does the patient have a stroke diagnosis?: No VTE Prior VTE?: No VTE Risk Level:: Medical - moderate - high VTE Device Contraindication: N/A - Device Ordered VTE Drug Contraindication: N/A - Med Ordered
[2022-05-28] MEDS: Furosemide 40 MG/4 ML VIAL IVPUSH (09:37)
[2022-05-28] MEDS: propofoL 1,000 MG/100 ML VIAL 18.7 MG IVCONT (09:37)
[2022-05-28] MEDS: metroNIDAZOLE/NS 500 MG/100 ML PIGGYBACK 100 MG IV (10:03)
[2022-05-28] MEDS: levoFLOXacin/D5W 750 MG/150 ML PIGGYBACK 100 MG IV (10:03)
[2022-05-28] MEDS: Rocuronium Bromide 50 MG/5 ML VIAL IVPUSH (11:08)
[2022-05-28 11:45] LABS: Glucose, Whole Blood 146 mg/dL (60-115)
[2022-05-28] MEDS: fentaNYL citrate/NS 1,000 MCG/100 ML PLAST..BAG 2.5 MCG IVCONT (12:54)
[2022-05-28] MEDS: propofoL 1,000 MG/100 ML VIAL 24.94 MG IVCONT (13:05)
--- NOTE | 2022-05-28 15:01 | P.PNCC_ITS ---
Subjective Subjective Date of Service: 05/28/22 Interval History: 62-year-old female with history of Crohn's disease recent lower endoscopy with perforation emergent surgery with a cleanout and diverting ostomy was performed and the patient had been on meropenem and is now growing out not just E coli but Clostridium perfringens as well as Bacteroides species and today despite yesterday's fairly prolonged success on pressure support but eventually requiring increased pressure and return to pressure control she began to struggle early this morning and x-ray looked like it was not only congested but of course lung volumes bilaterally of very very small probably considerable bibasilar atelectasis but also congestion and CVP indeed did read out at 17 with an 18 L positive intake and output ratio so I gave her 40 of Lasix in and I kept her on the assist control on the ventilator throughout this. We measured abdominal pressure which was up to 20 in the the abdomen was definitely more distended today but the ileus pattern did not look any worse than it did the day before no free air but I gave her 1 dose of rocuronium along with the with the Lasix basically to relax the being of the abdominal wall as well as the diaphragm and the abdominal pressure repeat came down to 18 and will keep noted that throughout the evening and watch her CVP and diurese accordingly and because of persistent anemia with a hemoglobin of 7.5 and already sinus tachycardia at rate 130 I transfused 1 unit of red cells and current heart rate is down to 120 on and trivial dose of Levophed pressure is 120/70 with a mean of 88 and an oxygen saturation of 97% on an FiO2 of 40% Critical Care Time (minutes): 60 Physical Exam Vital Signs: Vital Signs: Last Vital Signs Temp 100.2 F 05/28/22 14:00 Pulse 118 H 05/28/22 14:25 Resp 15 05/28/22 14:00 BP 115/65 05/28/22 14:25 Pulse Ox 97 05/28/22 14:00 O2 Del Method 05/28/22 14:00 O2 Flow Rate 3 05/23/22 14:38 FiO2 40 05/28/22 14:00 Oxygen Flow Rate 30 05/26/22 18:00 BMI result Body Mass Index 40.6 so currently sedated and intubated cardiovascular with adequate bilateral carotid upstrokes node neck vein distension now since diuresis abdomen still tightly distended no again a megaly diffuse anasarca Objective Data Labs CBC & Chem 7: 05/28/22 05:12 05/28/22 05:12 Labs: Laboratory Results - last 24 hr 05/27/22 05/27/22 05/27/22 06:38 17:32 20:28 WBC 7.0 RBC 2.68 L D Hgb 8.1 L D Hct 24.9 L D MCV 92.9 MCH 30.2 MCHC 32.5 RDW 14.8 Plt Count 78 L MPV 11.8 Immature Gran % (Auto) Cancelled Neut % (Auto) Cancelled Lymph % (Auto) Cancelled [place] % (Auto) Cancelled Eos % (Auto) Cancelled Baso % (Auto) Cancelled Lymph # (Auto) Cancelled [place] # (Auto) Cancelled Eos # (Auto) Cancelled Baso # (Auto) Cancelled Abs Immat Gran (auto) Cancelled Absolute Neuts (auto) Cancelled Absolute Nucleated RBC 0.020 H Nucleated RBC % (auto) 0.3 H Neutrophils % (Manual) 81 H Band Neutrophils % 5 Lymphocytes % (Manual) 10 L Atypical Lymphs % (Man) Monocytes % (Manual) 4 Eosinophils % (Manual) Abs Neuts (Manual) 6.0 Lymphocytes # (Manual) 0.7 L Atyp Lymphs # (Manual) Monocytes # (Manual) 0.3 Eosinophils # (Manual) Toxic Granulation PRESENT Toxic Vacuolation PRESENT Dohle Bodies PRESENT Platelet Estimate DECREASED Plt Morphology Comment NORMAL RBC Morphology NOTED Polychromasia 1+ (0-2) Hypochromasia 1+ (5-14) Microcytosis 1+ (5-14) [place] Cells 2+ (3-5) VBG pH VBG pCO2 VBG pO2 VBG HCO3 VBG O2 Saturation VBG Base Excess Sodium Potassium Chloride Carbon Dioxide Anion Gap BUN Creatinine Estim Creat Clear Calc Estimated GFR POC Glucose 224 H Random Glucose Calcium Phosphorus Magnesium Total Bilirubin AST ALT Alkaline Phosphatase Total Protein Albumin Blood Type B Positive Antibody Screen NEGATIVE Crossmatch See Detail 05/27/22 05/27/22 05/28/22 20:28 23:52 05:12 WBC 6.3 RBC 2.50 L Hgb 7.5 L Hct 23.5 L MCV 94.0 MCH 30.0 MCHC 31.9 RDW 14.8 Plt Count 90 L MPV 11.2 Immature Gran % (Auto) Cancelled Neut % (Auto) Cancelled Lymph % (Auto) Cancelled [place] % (Auto) Cancelled Eos % (Auto) Cancelled Baso % (Auto) Cancelled Lymph # (Auto) Cancelled [place] # (Auto) Cancelled Eos # (Auto) Cancelled Baso # (Auto) Cancelled Abs Immat Gran (auto) Cancelled Absolute Neuts (auto) Cancelled Absolute Nucleated RBC 0.000 Nucleated RBC % (auto) 0.0 Neutrophils % (Manual) 58 Band Neutrophils % 4 Lymphocytes % (Manual) 28 Atypical Lymphs % (Man) 2 Monocytes % (Manual) 2 Eosinophils % (Manual) 6 H Abs Neuts (Manual) 3.9 Lymphocytes # (Manual) 1.8 Atyp Lymphs # (Manual) 0.1 Monocytes # (Manual) 0.1 Eosinophils # (Manual) 0.4 Toxic Granulation PRESENT Toxic Vacuolation PRESENT Dohle Bodies PRESENT Platelet Estimate DECREASED Plt Morphology Comment NORMAL RBC Morphology NOTED Polychromasia Hypochromasia 1+ (5-14) Microcytosis Susan Cells VBG pH VBG pCO2 VBG pO2 VBG HCO3 VBG O2 Saturation VBG Base Excess Sodium 143 Potassium 4.4 Chloride 112 H Carbon Dioxide 22 Anion Gap 13 BUN 40 H Creatinine 1.07 Estim Creat Clear Calc 63.6 Estimated GFR 52 POC Glucose 143 H Random Glucose 196 H Calcium 7.6 L D Phosphorus Magnesium Total Bilirubin 1.7 H AST 27 ALT 22 Alkaline Phosphatase 52 D Total Protein 4.5 L Albumin 3.0 L Blood Type Antibody Screen Crossmatch 05/28/22 05/28/22 05/28/22 05:12 05:12 11:42 WBC RBC Hgb Hct MCV MCH MCHC RDW Plt Count MPV Immature Gran % (Auto) Neut % (Auto) Lymph % (Auto) [place] % (Auto) Eos % (Auto) Baso % (Auto) Lymph # (Auto) [place] # (Auto) Eos # (Auto) Baso # (Auto) Abs Immat Gran (auto) Absolute Neuts (auto) Absolute Nucleated RBC Nucleated RBC % (auto) Neutrophils % (Manual) Band Neutrophils % Lymphocytes % (Manual) Atypical Lymphs % (Man) Monocytes % (Manual) Eosinophils % (Manual) Abs Neuts (Manual) Lymphocytes # (Manual) Atyp Lymphs # (Manual) Monocytes # (Manual) Eosinophils # (Manual) Toxic Granulation Toxic Vacuolation Dohle Bodies Platelet Estimate Plt Morphology Comment RBC Morphology Polychromasia Hypochromasia Microcytosis Susan Cells VBG pH 7.36 VBG pCO2 39 VBG pO2 39 VBG HCO3 22 VBG O2 Saturation 66.0 VBG Base Excess -2.5 Sodium 144 Potassium 4.4 Chloride 113 H Carbon Dioxide 23 Anion Gap 12 BUN 41 H Creatinine 1.12 Estim Creat Clear Calc 60.8 Estimated GFR 49 POC Glucose 146 H Random Glucose 157 H Calcium 8.0 L Phosphorus 3.0 Magnesium 2.1 Total Bilirubin 1.5 H AST 45 H D ALT 33 H Alkaline Phosphatase 53 Total Protein 5.0 L Albumin 3.8 D Blood Type Antibody Screen Crossmatch Microbiology Microbiology Results: Microbiology 05/23/22 Unknown Peritoneal Fluid Gram Stain - Final 05/23/22 Unknown Peritoneal Fluid Routine Culture - Final Escherichia coli 05/23/22 Unknown Peritoneal Fluid Anaerobic Culture - Final Clostridium perfringens Bacteroides thetaiotaomicron 05/19/22 08:49 Blood - Venous Blood Culture - Final No growth after 5 days. 05/19/22 08:49 Blood - Venous Blood Culture - Final No growth after 5 days. Progress Note: A&P Assessment and plan (1) Hypernatremia: Status: Acute (2) Septic shock: Status: Acute (3) Perforated viscus: Status: Acute (4) Hypokalemia: Status: Acute (5) Exacerbation of Crohn's disease: Status: Acute (6) Colitis: Status: Acute (7) Acute proctitis: Status: Acute (8) Anemia: Status: Acute (9) Thrombocytopenia: Status: Acute (10) Ileus following gastrointestinal surgery: Status: Acute Plan so at this point I a gave her synergistic dose of metronidazole as well as Levaquin and cultured both the blood and the peritoneal fluid keeping her fully sedated on assist control and G no transfusing with minimal dose of norepinephrine for circulatory support and following abdominal pressure in CVP Quality Stroke Does the patient have a stroke diagnosis?: No VTE Prior VTE?: No VTE Risk Level:: Medical - moderate - high VTE Device Contraindication: N/A - Device Ordered VTE Drug Contraindication: N/A - Med Ordered
[2022-05-28] MEDS: propofoL 1,000 MG/100 ML VIAL 21.82 MG IVCONT ×2 (16:37→21:37)
--- NOTE | 2022-05-28 17:18 | PC.NURSE ---
Assumed care at 0700. Patient presenting restless and agitated with precedex gtt 1.5 mcg/kg/hr, titrated per EMAR. Patient moving all extremities, grimacing and tearful, RR in the 20s-30s with labored breathing, HR 130's, systolic BP 160s-170s. Medicated with PRN Dilaudid 2mg X1 and 1mg X2 with some effectiveness. Abdomen firm and distended, hypoactive bowel sound heard in all 4 quadrants. MD aware and at bedside to assess. KUB and CXR ordered- see report. 40mg Lasix IVP ordered and given. Precedex gtt d/c'd and propofol gtt ordered and titrated per EMAR. Intra-abdominal pressure reading of 20, CVP of 17-MD aware. Peritoneal fluid sent for culture, Levaquin and flagyl ordered and given. 50mg rocuronium ordered and given. Patient RR 14-18, SBP 110s, HR sustaining 130s, MD aware. Morning H/H 7.5/23.5, 1 Unit PRBC ordered and administered per TAR. Repeat intra-abdominal pressure reading 18-MD aware. Patient RR increase and sustaining 20s-30s, labored breathing pattern returns. Fentanyl gtt ordered and titrated per EMAR. Repeat CVP 12-MD aware. SBP sustaning 80s-90s, Levophed gtt ordered and titrated per EMAR. New vuong frothy sputum suctioned from ETT- MD notified. Sputum collected and sent for culture, Vancomycin [id number] ordered and hung.
[2022-05-28 18:11] LABS: Glucose, Whole Blood 194 mg/dL (60-115)
[2022-05-28] MEDS: fentaNYL citrate/NS 1,000 MCG/100 ML PLAST..BAG 15 MCG IVCONT (21:40)
[2022-05-28 23:37] LABS: Glucose, Whole Blood 214 mg/dL (60-115)
[2022-05-28] MEDS: Acetaminophen Supp 325 MG SUPP.RECT 650 MG PR (23:47)
[2022-05-29] VITALS (34 sets, daily range): BP systolic 86–153; BP diastolic 50–84; PULSE 112–146; RESP 10–30; TEMP 34.7–39.6; O2SAT 94–98
[2022-05-29] MEDS: Lactated Ringers 1,000 ML 500 ML IV (01:47)
[2022-05-29] MEDS: propofoL 1,000 MG/100 ML VIAL 18.7 MG IVCONT (02:49)
[2022-05-29] MEDS: fentaNYL citrate/NS 1,000 MCG/100 ML PLAST..BAG 15 MCG IVCONT ×4 (04:00→22:10)
[2022-05-29] MEDS: Lactated Ringers 500 ML 999 ML IV (05:08)
[2022-05-29] MEDS: Insulin Lispro 100 UNIT/ML 3 ML VIAL SUBCUT ×3 (05:39→17:46)
[2022-05-29 05:41] LABS: Glucose, Whole Blood 231 mg/dL (60-115)
[2022-05-29 05:59] LABS: Hematocrit 31.1 % (37.0-47.0); Hemoglobin 9.9 g/dl (12.0-16.0); Mean Corpuscular HGB Conc 31.8 g/dl (31.0-35.0); Mean Corpuscular Hemoglobin 28.9 pg (27.0-33.0); Mean Corpuscular Volume 90.7 fL (80.0-98.0); Mean Platelet Volume 12.2 fL (9.4-12.3); NRBC Pct Auto 0.3 /100WBC (0.0-0.2); Platelet Count 131 X10*3/uL (160-400); Red Blood Count 3.43 X10*6/uL (4.20-5.50); Red Cell Distribution Width 17.1 % (11.0-16.0)
[2022-05-29 06:00] LABS: WBC ABN SCTR FOR CBC 1
[2022-05-29 06:23] LABS: B Type Natriuretic Peptide 885 pg/mL (<100)
[2022-05-29 06:25] LABS: Alanine Aminotransferase 30 U/L (0-31); Albumin Level 2.6 g/dL (3.5-5.0); Alkaline Phosphatase 60 U/L (39-117); Anion Gap 16 (12-20); Aspartate Amino Transferase 38 U/L (5-31); Bilirubin Total 2.9 mg/dL (0.0-1.0); Blood Urea Nitrogen 41 mg/dL (9-16); Calcium 7.9 mg/dL (8.4-10.2); Carbon Dioxide 19 mmol/L (22-29); Chloride 111 mmol/L (96-108); Creatinine Clr Calc Pharmacy 57.6; Estimated Glomerular Filt Rate 47; Glucose Random 255 mg/dL (60-115); Phosphorus 4.3 mg/dL (2.7-4.5); Sodium 141 mmol/L (135-145); Total Protein 4.6 g/dL (6.5-8.0)
[2022-05-29] MEDS: propofoL 1,000 MG/100 ML VIAL 12.47 MG IVCONT ×2 (06:27→14:48)
[2022-05-29 07:28] LABS: Band Neutrophils Percent 22 % (3-5); Eosinophils Percent Manual 4 % (0-4); Lymphocytes Percent Manual 9 % (20-40); Metamyelocytes Percent 2 %; Monocytes Percent Manual 1 % (2-11); Neutrophils Percent Manual 62 % (45-73); Nucleated Red Blood Cells 1 /100WBC (0-0)
[2022-05-29 07:30] LABS: Burr Cells 1+ (0-2) /OIF; Hypochromasia 1+ (5-14) /OIF; RBC Morphology NOTED
[2022-05-29 07:31] LABS: Dohle Bodies PRESENT; Platelet Estimate SLIGHTLY DECREASED (NORMAL); Platelet Morphology Comment NORMAL; Toxic Granulation PRESENT
[2022-05-29] MEDS: Furosemide 40 MG/4 ML VIAL IVPUSH (08:07)
[2022-05-29] MEDS: Chlorhexidine Gluc Oral Rinse 15 ML MOUTHWASH BUCCAL ×3 (08:07→22:11)
[2022-05-29] MEDS: 0.9 % Sodium Chloride Flush 3 ML SYRINGE IVFLUSH ×2 (08:07→14:57)
[2022-05-29 08:32] LABS: VBG Base Excess -3.6 mmol/L; VBG HCO3 20 mmol/L (22-26); VBG pCO2 33 mmHg; VBG pH 7.39 (7.32-7.43); VBG pO2 79 mmHg
[2022-05-29 08:52] LABS: Venous Blood Gas Refer to POC result
--- NOTE | 2022-05-29 10:03 | PM.PNGS ---
Subjective Subjective Date of Service: 05/30/22 Interval history: remains on vent no pressors good UO no stoma output yet Physical Exam Vital Signs: Vital Signs: Last Vital Signs Temp 100.6 F H 05/29/22 08:00 Pulse 126 H 05/29/22 08:00 Resp 18 05/29/22 08:00 BP 134/77 05/29/22 08:00 Pulse Ox 95 05/29/22 08:00 O2 Del Method 05/29/22 08:00 O2 Flow Rate 3 05/23/22 14:38 FiO2 40 05/29/22 08:57 Oxygen Flow Rate 40 05/28/22 18:00 BMI result Body Mass Index 40.6 Const: Other: sedated, on ventilator Resp: Other: on ventilator Cardio: Rate: tachycardic GI: Other: stoma viable, no stool, small amount of gas Palpation (GI): Soft to palpation Objective Data Active Medications Acetaminophen (Acetaminophen Supp 325 Mg Supp.Rect) 650 mg RI Q4H PRN PRN Reason: Fever Last Admin: 05/28/22 23:47 Dose: 650 mg Documented By: EDILIA Chlorhexidine Gluconate (Chlorhexidine Gluc Oral Rinse 15 Ml Mouthwash) 15 ml BUCCAL TID [facility] Last Admin: 05/29/22 08:07 Dose: 15 ml Documented By: ISH Norepinephrine Bitartrate (Levophed) 8 mg in 250 mls @ 0 mls/hr IVCONT .Q0M [facility]; Protocol Last Titration: 05/28/22 17:45 Dose: 0 mcg/kg/min, 0 mls/hr Documented By: ISH Meropenem 1 gm/ Sodium (Chloride) 100 mls @ 200 mls/hr IV Q8H [facility] Last Infusion: 05/29/22 08:40 Dose: 0 mls/hr Documented By: ISH Propofol (Diprivan) 1,000 mg in 100 mls @ 0 mls/hr IVCONT .Q0M [facility]; Protocol Last Admin: 05/29/22 06:27 Dose: 20 mcg/kg/min, 12.47 mls/hr Documented By: EDILIA Fentanyl (Sublimaze/Ns) 1,000 mcg in 100 mls @ 0 mls/hr IVCONT .Q0M [facility]; Protocol Last Admin: 05/29/22 04:00 Dose: 150 mcg/hr, 15 mls/hr Documented By: EDILIA Magnesium Sulfate 10 meq/Potassium Phosphate 40 mmol/Calcium Gluconate 9.3 meq/Potassium Acetate 100 meq/Multivitamins 11 ml/ Trace Metals 1.1 ml/ Amino Acids/Dextrose 1,800 mls @ 75 mls/hr IV DAILY@1800 [facility] Stop: 05/29/22 17:59 Last Admin: 05/28/22 18:31 Dose: 75 mls/hr Documented By: ISH Insulin Human Lispro (Insulin Lispro 100 Unit/Ml 3 Ml Vial) 0 unit SUBCUT Q6H [facility]; Protocol Last Admin: 05/29/22 05:39 Dose: 4 unit Documented By: EDILIA Naloxone HCl (Naloxone Hcl 0.4 Mg/Ml Vial) 0.2 mg IVPUSH Q2M PRN PRN Reason: Excessive sedation or RR < 8 Non-Formulary Medication (Fremanezumab-Vfrm [Ajovy Syringe]) 1.5 mg SUBCUT Q30D [facility] Pharmacy Consult (Consult Rx Perform Med Rec) 1 each MISCELLANE ONCE PRN PRN Reason: Consult order Sodium Chloride (0.9 % Sodium Chloride Flush 3 Ml Syringe) 3 ml IVFLUSH QSHIFT [facility] Last Admin: 05/29/22 08:07 Dose: 3 ml Documented By: ISH Labs CBC & Chem 7: 05/30/22 05:00 05/30/22 05:00 Labs: Laboratory Results - last 24 hr 05/27/22 05/28/22 05/28/22 06:38 11:42 18:04 MCV MCH MCHC RDW Plt Count MPV Immature Gran % (Auto) Neut % (Auto) Lymph % (Auto) [place] % (Auto) Eos % (Auto) Baso % (Auto) Lymph # (Auto) [place] # (Auto) Eos # (Auto) Baso # (Auto) Abs Immat Gran (auto) Absolute Neuts (auto) Absolute Nucleated RBC Nucleated RBC % (auto) Neutrophils % (Manual) Band Neutrophils % Lymphocytes % (Manual) Monocytes % (Manual) Eosinophils % (Manual) Metamyelocytes % Nucleated RBCs Toxic Granulation Dohle Bodies Platelet Estimate Plt Morphology Comment RBC Morphology Hypochromasia [place] Cells VBG pH VBG pCO2 VBG pO2 VBG HCO3 VBG O2 Saturation VBG Base Excess Anion Gap Estim Creat Clear Calc Estimated GFR POC Glucose 146 H 194 H Random Glucose Calcium Phosphorus Magnesium Total Bilirubin AST ALT Alkaline Phosphatase B-Natriuretic Peptide Total Protein Albumin Blood Type B Positive Antibody Screen NEGATIVE Crossmatch See Detail 05/28/22 05/29/22 05/29/22 23:33 05:12 05:14 MCV 90.7 MCH 28.9 MCHC 31.8 RDW 17.1 H Plt Count 131 L D MPV 12.2 Immature Gran % (Auto) Cancelled Neut % (Auto) Cancelled Lymph % (Auto) Cancelled [place] % (Auto) Cancelled Eos % (Auto) Cancelled Baso % (Auto) Cancelled Lymph # (Auto) Cancelled [place] # (Auto) Cancelled Eos # (Auto) Cancelled Baso # (Auto) Cancelled Abs Immat Gran (auto) Cancelled Absolute Neuts (auto) Cancelled Absolute Nucleated RBC 0.030 H Nucleated RBC % (auto) 0.3 H Neutrophils % (Manual) 62 Band Neutrophils % 22 H Lymphocytes % (Manual) 9 L Monocytes % (Manual) 1 L Eosinophils % (Manual) 4 Metamyelocytes % 2 Nucleated RBCs 1 H Toxic Granulation PRESENT Dohle Bodies PRESENT Platelet Estimate SLIGHTLY DECREASED Plt Morphology Comment NORMAL RBC Morphology NOTED Hypochromasia 1+ (5-14) [place] Cells 1+ (0-2) VBG pH 7.39 VBG pCO2 33 VBG pO2 79 VBG HCO3 20 L VBG O2 Saturation 96.0 VBG Base Excess -3.6 Anion Gap Estim Creat Clear Calc Estimated GFR POC Glucose 214 H Random Glucose Calcium Phosphorus Magnesium Total Bilirubin AST ALT Alkaline Phosphatase B-Natriuretic Peptide Total Protein Albumin Blood Type Antibody Screen Crossmatch 05/29/22 05/29/22 05/29/22 05:14 05:14 05:36 MCV MCH MCHC RDW Plt Count MPV Immature Gran % (Auto) Neut % (Auto) Lymph % (Auto) [place] % (Auto) Eos % (Auto) Baso % (Auto) Lymph # (Auto) [place] # (Auto) Eos # (Auto) Baso # (Auto) Abs Immat Gran (auto) Absolute Neuts (auto) Absolute Nucleated RBC Nucleated RBC % (auto) Neutrophils % (Manual) Band Neutrophils % Lymphocytes % (Manual) Monocytes % (Manual) Eosinophils % (Manual) Metamyelocytes % Nucleated RBCs Toxic Granulation Dohle Bodies Platelet Estimate Plt Morphology Comment RBC Morphology Hypochromasia [place] Cells VBG pH VBG pCO2 VBG pO2 VBG HCO3 VBG O2 Saturation VBG Base Excess Anion Gap 16 Estim Creat Clear Calc 57.6 Estimated GFR 47 POC Glucose 231 H Random Glucose 255 H Calcium 7.9 L Phosphorus 4.3 Magnesium 2.0 Total Bilirubin 2.9 H AST 38 H ALT 30 Alkaline Phosphatase 60 B-Natriuretic Peptide 885 H Total Protein 4.6 L Albumin 2.6 L D Blood Type Antibody Screen Crossmatch Microbiology Microbiology Results: Microbiology 05/28/22 Unknown Gram Stain - Final Peritoneal Fluid Anaerobic Culture - Preliminary Culture in progress. Body Fluid Culture - Preliminary Culture in progress. 05/28/22 16:47 Gram Stain - Final Sputum - Suctioned Sputum Culture - Preliminary No growth to date. Procedures Date of Service Date of Service: 05/29/22 Arterial Line Size (Gauge): 16 Progress Note: A&P Assessment and plan (1) Perforated viscus: Status: Acute Assessment and Plan: s/p sigmoid resection, colostomy still on vent TPN transfused yesterday - Hg up appropriately await return of GI function still critically ill NOHEMI drain in place Time Spent With Patient Time: Total time spent is greater than 50% in coordination of care (as documented) at patient's floor/unit and/or counseling patient: Quality Stroke Does the patient have a stroke diagnosis?: No VTE Prior VTE?: No VTE Risk Level:: Medical - moderate - high VTE Device Contraindication: N/A - Device Ordered VTE Drug Contraindication: N/A - Med Ordered
[2022-05-29 11:50] LABS: Glucose, Whole Blood 251 mg/dL (60-115)
--- NOTE | 2022-05-29 11:58 | MHC.CLN ---
F/U DISCUSSED AT ROUNDS WITH MD REVIEWED LABS DISCUSSED WITH PHARMACY RECOMMEND CONTINUING D15AA5 TO 75ML/HR PROVIDES 1278KCALS (1607TOTAL KCALS WITH SEDATION; 26KCALS/KG BASED ON CMW), 90G PROTEIN (1.5G/KG BASED ON CMW) TRIGS WNL-CONTINUE HOLDING LIPIDS TODAY REPLETE LYTES NEEDED
[2022-05-29 12:34] LABS: Eosinophils Absolute Manual 0.5 X10*3/uL (0.0-0.4); Metamyelocytes Absolute 0.2 X10*3/uL; Monocytes Absolute Manual 0.1 X10*3/uL (0.1-1.2); Neutrophils Absolute Manual 9.6 X10*3/uL (2.0-8.3); White Blood Count 11.4 X10*3/uL (4.8-10.8)
[2022-05-29] MEDS: Acetaminophen Supp 325 MG SUPP.RECT 650 MG PR (14:56)
[2022-05-29] MEDS: levoFLOXacin/D5W 500 MG/100 ML PIGGYBACK 100 MG IV (16:04)
--- NOTE | 2022-05-29 16:18 | PM.CCPN ---
Subjective Subjective Date of Service: 05/29/22 Interval History: 62-year-old female with extensive fecal soilage of the peritoneum from a perforation with history of underlying Crohn's disease and emergent surgery for a extensive washout and diverting colostomy was performed she has since had elevated intra-abdominal pressure with a tight abdomen and persistent ileus now 6 days postoperatively with abdominal pressure is at a high of 21 very close to a compartment problem issue and her blood pressures are beginning to sag and require Levophed and the pressure is currently 97/56 with a mean a 69 and we currently awaiting 1 more repeat on her abdominal pressure the cultures from the abdomen growing everything including E coli as well as Bacteroides and Clostridium species and was on meropenem but I have been enhancing that vena with a daily doses of of Levaquin and at this point the no with her temperature spiking at 102.6 and the heart rate going up to 140 I have concerns about compartment in may have to call the surgeon but on going to give her 1 dose today of caspofungin as we continue to await the latest cultures Critical Care Time (minutes): 60 Physical Exam Vital Signs: Vital Signs: Last Vital Signs Temp 103.3 F H 05/29/22 16:00 Pulse 144 H 05/29/22 16:00 Resp 20 05/29/22 16:00 BP 86/52 L 05/29/22 16:10 Pulse Ox 96 05/29/22 16:00 O2 Del Method 05/29/22 16:00 O2 Flow Rate 3 05/23/22 14:38 FiO2 40 05/29/22 16:00 Oxygen Flow Rate 40 05/28/22 18:00 BMI result Body Mass Index 40.6 sedated and intubated but with temperature spike to 102.6 with heart rate of 140 and blood pressure now requiring Levophed with a mean of barely 70 last abdominal pressure 21 and if it remains at least at this level the might have to call the surgeon to consider possible reopening of the wound cardiac exam showing hyperdynamic left and right ventricle and what I believe is a probable left pleural effusion but at this point I feel she is too ill to go to CT scan lungs clearly of small volume and based on this morning CVP of 9-10 I diuresed 1 more time with 40 of Lasix in to which she did respond current CVP is in a normal range of 3 but my big concerns in terms of venous return of the presence of a possible compartment persistent diffuse anasarca Objective Data Labs CBC & Chem 7: 05/29/22 05:14 05/29/22 05:14 Labs: Laboratory Results - last 24 hr 05/28/22 05/28/22 05/29/22 18:04 23:33 05:12 WBC RBC Hgb Hct MCV MCH MCHC RDW Plt Count MPV Immature Gran % (Auto) Neut % (Auto) Lymph % (Auto) [place] % (Auto) Eos % (Auto) Baso % (Auto) Lymph # (Auto) [place] # (Auto) Eos # (Auto) Baso # (Auto) Abs Immat Gran (auto) Absolute Neuts (auto) Absolute Nucleated RBC Nucleated RBC % (auto) Neutrophils % (Manual) Band Neutrophils % Lymphocytes % (Manual) Monocytes % (Manual) Eosinophils % (Manual) Metamyelocytes % Abs Neuts (Manual) Lymphocytes # (Manual) Monocytes # (Manual) Eosinophils # (Manual) Metamyelocytes # Nucleated RBCs Toxic Granulation Dohle Bodies Platelet Estimate Plt Morphology Comment RBC Morphology Hypochromasia [place] Cells VBG pH 7.39 VBG pCO2 33 VBG pO2 79 VBG HCO3 20 L VBG O2 Saturation 96.0 VBG Base Excess -3.6 Sodium Potassium Chloride Carbon Dioxide Anion Gap BUN Creatinine Estim Creat Clear Calc Estimated GFR POC Glucose 194 H 214 H Random Glucose Calcium Phosphorus Magnesium Total Bilirubin AST ALT Alkaline Phosphatase B-Natriuretic Peptide Total Protein Albumin 05/29/22 05/29/22 05/29/22 05:14 05:14 05:14 WBC 11.4 H RBC 3.43 L D Hgb 9.9 L D Hct 31.1 L D MCV 90.7 MCH 28.9 MCHC 31.8 RDW 17.1 H Plt Count 131 L D MPV 12.2 Immature Gran % (Auto) Cancelled Neut % (Auto) Cancelled Lymph % (Auto) Cancelled [place] % (Auto) Cancelled Eos % (Auto) Cancelled Baso % (Auto) Cancelled Lymph # (Auto) Cancelled [place] # (Auto) Cancelled Eos # (Auto) Cancelled Baso # (Auto) Cancelled Abs Immat Gran (auto) Cancelled Absolute Neuts (auto) Cancelled Absolute Nucleated RBC 0.030 H Nucleated RBC % (auto) 0.3 H Neutrophils % (Manual) 62 Band Neutrophils % 22 H Lymphocytes % (Manual) 9 L Monocytes % (Manual) 1 L Eosinophils % (Manual) 4 Metamyelocytes % 2 Abs Neuts (Manual) 9.6 H Lymphocytes # (Manual) 1.0 L Monocytes # (Manual) 0.1 Eosinophils # (Manual) 0.5 H Metamyelocytes # 0.2 Nucleated RBCs 1 H Toxic Granulation PRESENT Dohle Bodies PRESENT Platelet Estimate SLIGHTLY DECREASED Plt Morphology Comment NORMAL RBC Morphology NOTED Hypochromasia 1+ (5-14) [place] Cells 1+ (0-2) VBG pH VBG pCO2 VBG pO2 VBG HCO3 VBG O2 Saturation VBG Base Excess Sodium 141 Potassium 5.0 Chloride 111 H Carbon Dioxide 19 L Anion Gap 16 BUN 41 H Creatinine 1.18 Estim Creat Clear Calc 57.6 Estimated GFR 47 POC Glucose Random Glucose 255 H Calcium 7.9 L Phosphorus 4.3 Magnesium 2.0 Total Bilirubin 2.9 H AST 38 H ALT 30 Alkaline Phosphatase 60 B-Natriuretic Peptide 885 H Total Protein 4.6 L Albumin 2.6 L D 05/29/22 05/29/22 05:36 11:46 WBC RBC Hgb Hct MCV MCH MCHC RDW Plt Count MPV Immature Gran % (Auto) Neut % (Auto) Lymph % (Auto) [place] % (Auto) Eos % (Auto) Baso % (Auto) Lymph # (Auto) [place] # (Auto) Eos # (Auto) Baso # (Auto) Abs Immat Gran (auto) Absolute Neuts (auto) Absolute Nucleated RBC Nucleated RBC % (auto) Neutrophils % (Manual) Band Neutrophils % Lymphocytes % (Manual) Monocytes % (Manual) Eosinophils % (Manual) Metamyelocytes % Abs Neuts (Manual) Lymphocytes # (Manual) Monocytes # (Manual) Eosinophils # (Manual) Metamyelocytes # Nucleated RBCs Toxic Granulation Dohle Bodies Platelet Estimate Plt Morphology Comment RBC Morphology Hypochromasia [place] Cells VBG pH VBG pCO2 VBG pO2 VBG HCO3 VBG O2 Saturation VBG Base Excess Sodium Potassium Chloride Carbon Dioxide Anion Gap BUN Creatinine Estim Creat Clear Calc Estimated GFR POC Glucose 231 H 251 H Random Glucose Calcium Phosphorus Magnesium Total Bilirubin AST ALT Alkaline Phosphatase B-Natriuretic Peptide Total Protein Albumin Microbiology Microbiology Results: Microbiology 05/28/22 Unknown Peritoneal Fluid Gram Stain - Final 05/28/22 Unknown Peritoneal Fluid Anaerobic Culture - Preliminary Culture in progress. 05/28/22 Unknown Peritoneal Fluid Body Fluid Culture - Preliminary Culture in progress. 05/28/22 16:47 Sputum - Suctioned Gram Stain - Final 05/28/22 16:47 Sputum - Suctioned Sputum Culture - Preliminary No growth to date. 05/23/22 Unknown Peritoneal Fluid Gram Stain - Final 05/23/22 Unknown Peritoneal Fluid Routine Culture - Final Escherichia coli 05/23/22 Unknown Peritoneal Fluid Anaerobic Culture - Final Clostridium perfringens Bacteroides thetaiotaomicron 05/19/22 08:49 Blood - Venous Blood Culture - Final No growth after 5 days. 05/19/22 08:49 Blood - Venous Blood Culture - Final No growth after 5 days. Progress Note: A&P Assessment and plan (1) Ileus following gastrointestinal surgery: Status: Acute (2) Thrombocytopenia: Status: Acute (3) Anemia: Status: Acute (4) Hypernatremia: Status: Acute (5) Septic shock: Status: Acute (6) Shock: Status: Acute (7) Perforated viscus: Status: Acute (8) Hypokalemia: Status: Acute (9) Constipation: Status: Acute (10) Fibromyalgia: Status: Acute (11) Exacerbation of Crohn's disease: Status: Acute (12) Colitis: Status: Acute (13) Acute proctitis: Status: Acute (14) Viral illness: Status: Acute (15) Hives: Status: Acute Plan adding 1 dose of Levaquin right now and can not and giving 1 dose of caspofungin and will obtain 1 more reading on the abdominal pressure and if persistently greater than 20 I will notify surgery Quality Stroke Does the patient have a stroke diagnosis?: No VTE Prior VTE?: No VTE Risk Level:: Medical - moderate - high VTE Device Contraindication: N/A - Device Ordered VTE Drug Contraindication: N/A - Med Ordered
--- NOTE | 2022-05-29 16:54 | P.PNGI_ITS ---
Subjective Subjective Date of Service: 05/29/22 Interval History: remains on vent Critical Care Time (minutes): 0 Physical Exam Vital Signs: Vital Signs: Last Vital Signs Temp 103.3 F H 05/29/22 16:00 Pulse 144 H 05/29/22 16:00 Resp 20 05/29/22 16:00 BP 132/80 05/29/22 16:41 Pulse Ox 96 05/29/22 16:00 O2 Del Method 05/29/22 16:00 O2 Flow Rate 3 05/23/22 14:38 FiO2 40 05/29/22 16:00 Oxygen Flow Rate 40 05/28/22 18:00 BMI result Body Mass Index 40.6 GI: Other: abdomen is distended, dressings in place Objective Data Labs CBC & Chem 7: 05/29/22 05:14 05/29/22 05:14 Labs: Laboratory Results - last 24 hr 05/28/22 05/28/22 05/29/22 18:04 23:33 05:12 WBC RBC Hgb Hct MCV MCH MCHC RDW Plt Count MPV Immature Gran % (Auto) Neut % (Auto) Lymph % (Auto) [place] % (Auto) Eos % (Auto) Baso % (Auto) Lymph # (Auto) [place] # (Auto) Eos # (Auto) Baso # (Auto) Abs Immat Gran (auto) Absolute Neuts (auto) Absolute Nucleated RBC Nucleated RBC % (auto) Neutrophils % (Manual) Band Neutrophils % Lymphocytes % (Manual) Monocytes % (Manual) Eosinophils % (Manual) Metamyelocytes % Abs Neuts (Manual) Lymphocytes # (Manual) Monocytes # (Manual) Eosinophils # (Manual) Metamyelocytes # Nucleated RBCs Toxic Granulation Dohle Bodies Platelet Estimate Plt Morphology Comment RBC Morphology Hypochromasia [place] Cells VBG pH 7.39 VBG pCO2 33 VBG pO2 79 VBG HCO3 20 L VBG O2 Saturation 96.0 VBG Base Excess -3.6 Sodium Potassium Chloride Carbon Dioxide Anion Gap BUN Creatinine Estim Creat Clear Calc Estimated GFR POC Glucose 194 H 214 H Random Glucose Calcium Phosphorus Magnesium Total Bilirubin AST ALT Alkaline Phosphatase B-Natriuretic Peptide Total Protein Albumin 05/29/22 05/29/22 05/29/22 05:14 05:14 05:14 WBC 11.4 H RBC 3.43 L D Hgb 9.9 L D Hct 31.1 L D MCV 90.7 MCH 28.9 MCHC 31.8 RDW 17.1 H Plt Count 131 L D MPV 12.2 Immature Gran % (Auto) Cancelled Neut % (Auto) Cancelled Lymph % (Auto) Cancelled [place] % (Auto) Cancelled Eos % (Auto) Cancelled Baso % (Auto) Cancelled Lymph # (Auto) Cancelled [place] # (Auto) Cancelled Eos # (Auto) Cancelled Baso # (Auto) Cancelled Abs Immat Gran (auto) Cancelled Absolute Neuts (auto) Cancelled Absolute Nucleated RBC 0.030 H Nucleated RBC % (auto) 0.3 H Neutrophils % (Manual) 62 Band Neutrophils % 22 H Lymphocytes % (Manual) 9 L Monocytes % (Manual) 1 L Eosinophils % (Manual) 4 Metamyelocytes % 2 Abs Neuts (Manual) 9.6 H Lymphocytes # (Manual) 1.0 L Monocytes # (Manual) 0.1 Eosinophils # (Manual) 0.5 H Metamyelocytes # 0.2 Nucleated RBCs 1 H Toxic Granulation PRESENT Dohle Bodies PRESENT Platelet Estimate SLIGHTLY DECREASED Plt Morphology Comment NORMAL RBC Morphology NOTED Hypochromasia 1+ (5-14) [place] Cells 1+ (0-2) VBG pH VBG pCO2 VBG pO2 VBG HCO3 VBG O2 Saturation VBG Base Excess Sodium 141 Potassium 5.0 Chloride 111 H Carbon Dioxide 19 L Anion Gap 16 BUN 41 H Creatinine 1.18 Estim Creat Clear Calc 57.6 Estimated GFR 47 POC Glucose Random Glucose 255 H Calcium 7.9 L Phosphorus 4.3 Magnesium 2.0 Total Bilirubin 2.9 H AST 38 H ALT 30 Alkaline Phosphatase 60 B-Natriuretic Peptide 885 H Total Protein 4.6 L Albumin 2.6 L D 05/29/22 05/29/22 05:36 11:46 WBC RBC Hgb Hct MCV MCH MCHC RDW Plt Count MPV Immature Gran % (Auto) Neut % (Auto) Lymph % (Auto) [place] % (Auto) Eos % (Auto) Baso % (Auto) Lymph # (Auto) [place] # (Auto) Eos # (Auto) Baso # (Auto) Abs Immat Gran (auto) Absolute Neuts (auto) Absolute Nucleated RBC Nucleated RBC % (auto) Neutrophils % (Manual) Band Neutrophils % Lymphocytes % (Manual) Monocytes % (Manual) Eosinophils % (Manual) Metamyelocytes % Abs Neuts (Manual) Lymphocytes # (Manual) Monocytes # (Manual) Eosinophils # (Manual) Metamyelocytes # Nucleated RBCs Toxic Granulation Dohle Bodies Platelet Estimate Plt Morphology Comment RBC Morphology Hypochromasia [place] Cells VBG pH VBG pCO2 VBG pO2 VBG HCO3 VBG O2 Saturation VBG Base Excess Sodium Potassium Chloride Carbon Dioxide Anion Gap BUN Creatinine Estim Creat Clear Calc Estimated GFR POC Glucose 231 H 251 H Random Glucose Calcium Phosphorus Magnesium Total Bilirubin AST ALT Alkaline Phosphatase B-Natriuretic Peptide Total Protein Albumin Microbiology Microbiology Results: Microbiology 05/28/22 Unknown Peritoneal Fluid Gram Stain - Final 05/28/22 Unknown Peritoneal Fluid Anaerobic Culture - Preliminary Culture in progress. 05/28/22 Unknown Peritoneal Fluid Body Fluid Culture - Preliminary Culture in progress. 05/28/22 16:47 Sputum - Suctioned Gram Stain - Final 05/28/22 16:47 Sputum - Suctioned Sputum Culture - Preliminary No growth to date. 05/23/22 Unknown Peritoneal Fluid Gram Stain - Final 05/23/22 Unknown Peritoneal Fluid Routine Culture - Final Escherichia coli 05/23/22 Unknown Peritoneal Fluid Anaerobic Culture - Final Clostridium perfringens Bacteroides thetaiotaomicron 05/19/22 08:49 Blood - Venous Blood Culture - Final No growth after 5 days. 05/19/22 08:49 Blood - Venous Blood Culture - Final No growth after 5 days. Procedures Date of Service Date of Service: 05/29/22 Arterial Line Size (Gauge): 16 Progress Note: A&P Assessment and plan (1) Perforated viscus: Status: Acute Assessment and Plan: Fever and tachycardia are concerning. Continue supportive care. Time Spent With Patient Time: Total time spent is greater than 50% in coordination of care (as documented) at patient's floor/unit and/or counseling patient: Quality Stroke Does the patient have a stroke diagnosis?: No VTE Prior VTE?: No VTE Risk Level:: Medical - moderate - high VTE Device Contraindication: N/A - Device Ordered VTE Drug Contraindication: N/A - Med Ordered
--- NOTE | 2022-05-29 17:08 | PM.EVENT ---
Event Note Date of Service: 05/30/22 Event Note: seen on afternoon rounds febrile abd soft - as per family , significantly less distended than yesterday stoma not functioning yet Intraabdominal pressures elevated 20-21 likely secondary to excess fluid - pt positive fluid balance since postop good urine output creatinine has been stable continue diuresis will follow closely - especially urine output NOHEMI drain - nonbloody although lightly turbid caspofungin added
[2022-05-29] MEDS: Caspofungin Acetate 70 MG in 0.9 % Sodium Chloride 250 ML 250 MG IV (17:29)
[2022-05-29 17:45] LABS: Glucose, Whole Blood 275 mg/dL (60-115)
--- NOTE | 2022-05-29 17:53 | PC.NURSE ---
Assumed care at 0700, patient presenting with HR 120s, SBP 110s, temperature 100.4. CVP 6, UAP 18- MD aware. Patient on fentanyl gtt and propofol gtt titrated per EMAR, RASS -4 with no s/s of respiratory distress. Patient HR increasing to 130s-140s, CVP 11, UAP 20, core temp 103.8 PRN tylenol administered w/o effect - MD aware. Patient placed on cooling blanket. Blood and sputum cultures sent, levoquin and caspofungin ordered and administered. SBP sustaining 80s-90s- MD aware, levophed started and titrated per EMAR. No BM through colostomy, serous drainage and flatus - Dr Peralta & Dr. Hagan at bedside, ID consult pending. Family updated by MD.
[2022-05-29 18:56] LABS: Venous Blood Gas Refer to POC result
[2022-05-29 18:56] LABS: VBG Base Excess -3.9 mmol/L; VBG HCO3 20 mmol/L (22-26); VBG pCO2 34 mmHg; VBG pH 7.37 (7.32-7.43); VBG pO2 55 mmHg
[2022-05-29 19:06] LABS: Anion Gap 15 (12-20); Blood Urea Nitrogen 43 mg/dL (9-16); Calcium 7.5 mg/dL (8.4-10.2); Carbon Dioxide 21 mmol/L (22-29); Chloride 110 mmol/L (96-108); Creatinine Clr Calc Pharmacy 59.2; Estimated Glomerular Filt Rate 48; Glucose Random 306 mg/dL (60-115); Sodium 141 mmol/L (135-145)
[2022-05-29 19:08] LABS: Lactic Acid 2.1 mmol/L (0.5-2.0)
[2022-05-29 20:45] LABS: Reflex Lactate? Lactic Acid Added
[2022-05-29 21:08] LABS: Anion Gap 15 (12-20); Blood Urea Nitrogen 44 mg/dL (9-16); Calcium 7.7 mg/dL (8.4-10.2); Carbon Dioxide 21 mmol/L (22-29); Chloride 110 mmol/L (96-108); Creatinine Clr Calc Pharmacy 61.3; Estimated Glomerular Filt Rate 50; Glucose Random 325 mg/dL (60-115); Sodium 141 mmol/L (135-145)
[2022-05-29 21:12] LABS: ~Lactic Acid-LAB USE ONLY 2.1 mmol/L (0.5-2.0)
[2022-05-29] MEDS: propofoL 1,000 MG/100 ML VIAL 6.23 MG IVCONT (22:10)
[2022-05-29 22:54] LABS: Reflex Lactate? 2 Y
[2022-05-29 23:31] LABS: Glucose, Whole Blood 298 mg/dL (60-115)
[2022-05-30] VITALS (37 sets, daily range): BP systolic 76–146; BP diastolic 42–112; PULSE 102–127; RESP 15–40; TEMP 34.9–38.3; O2SAT 90–99
[2022-05-30] MEDS: Insulin Lispro 100 UNIT/ML 3 ML VIAL SUBCUT ×4 (00:01→18:29)
[2022-05-30] MEDS: fentaNYL citrate/NS 1,000 MCG/100 ML PLAST..BAG 15 MCG IVCONT ×3 (04:19→21:03)
[2022-05-30 05:13] LABS: VBG Base Excess -4.1 mmol/L; VBG HCO3 21 mmol/L (22-26); VBG pCO2 38 mmHg; VBG pH 7.34 (7.32-7.43); VBG pO2 48 mmHg
[2022-05-30 05:36] LABS: Hematocrit 36.1 % (37.0-47.0); Hemoglobin 11.6 g/dl (12.0-16.0); Mean Corpuscular HGB Conc 32.1 g/dl (31.0-35.0); Mean Corpuscular Hemoglobin 29.1 pg (27.0-33.0); Mean Corpuscular Volume 90.5 fL (80.0-98.0); Mean Platelet Volume 12.7 fL (9.4-12.3); Platelet Count 258 X10*3/uL (160-400); Red Blood Count 3.99 X10*6/uL (4.20-5.50); Red Cell Distribution Width 16.9 % (11.0-16.0); WBC ABN SCTR FOR CBC 1
[2022-05-30 05:36] LABS: Glucose, Whole Blood 328 mg/dL (60-115)
[2022-05-30 05:37] LABS: White Blood Count 20.1 X10*3/uL (4.8-10.8)
[2022-05-30 05:48] LABS: ~Lactic Acid-LAB USE ONLY 2.3 mmol/L (0.5-2.0)
[2022-05-30] MEDS: propofoL 1,000 MG/100 ML VIAL 12.47 MG IVCONT ×2 (05:56→12:42)
[2022-05-30 06:02] LABS: Alanine Aminotransferase 22 U/L (0-31); Albumin Level 2.4 g/dL (3.5-5.0); Alkaline Phosphatase 64 U/L (39-117); Anion Gap 17 (12-20); Aspartate Amino Transferase 22 U/L (5-31); Bilirubin Total 1.5 mg/dL (0.0-1.0); Blood Urea Nitrogen 47 mg/dL (9-16); Calcium 7.4 mg/dL (8.4-10.2); Carbon Dioxide 21 mmol/L (22-29); Chloride 109 mmol/L (96-108); Creatinine Clr Calc Pharmacy 64.8; Estimated Glomerular Filt Rate 53; Sodium 142 mmol/L (135-145); Total Protein 4.4 g/dL (6.5-8.0)
[2022-05-30 06:04] LABS: Band Neutrophils Percent 29 % (3-5); Lymphocytes Percent Manual 5 % (20-40); Metamyelocytes Absolute 0.6 X10*3/uL; Metamyelocytes Percent 3 %; Monocytes Absolute Manual 0.2 X10*3/uL (0.1-1.2); Monocytes Percent Manual 1 % (2-11); Neutrophils Absolute Manual 18.3 X10*3/uL (2.0-8.3); Neutrophils Percent Manual 62 % (45-73)
[2022-05-30 06:06] LABS: Large Platelet PRESENT; Platelet Estimate NORMAL (NORMAL); RBC Morphology NOTED
[2022-05-30 06:07] LABS: Burr Cells 1+ (0-2) /OIF; Glucose Random 393 mg/dL (60-115); Microcytosis 1+ (5-14) /OIF; Platelet Morphology Comment NOTE; Polychromasia 1+ (0-2) /OIF; Spherocytes 1+ (0-2) /OIF
[2022-05-30 06:08] LABS: Toxic Granulation PRESENT
[2022-05-30 06:10] LABS: C Reactive Protein 32.85 mg/dL (< or = 0.50)
[2022-05-30 06:16] LABS: Procalcitonin 10.31 ng/mL
[2022-05-30 06:42] LABS: Venous Blood Gas Refer to POC result
[2022-05-30] MEDS: 0.9 % Sodium Chloride Flush 3 ML SYRINGE IVFLUSH ×2 (08:11→14:50)
[2022-05-30] MEDS: Chlorhexidine Gluc Oral Rinse 15 ML MOUTHWASH BUCCAL ×3 (08:11→21:04)
--- NOTE | 2022-05-30 08:16 | P.PNGS_ITS ---
Subjective Subjective Date of Service: 06/01/22 Interval history: Remains on vent On pressors Had been having temperature spikes Diuresing on her own good urine output No stoma output although with small amounts of gas Physical Exam Vital Signs: Vital Signs: Last Vital Signs Temp 99.7 F 05/30/22 08:00 Pulse 114 H 05/30/22 08:00 Resp 17 05/30/22 08:00 BP 107/57 L 05/30/22 08:00 Pulse Ox 92 05/30/22 08:00 O2 Del Method 05/30/22 08:00 O2 Flow Rate 3 05/23/22 14:38 FiO2 30 05/30/22 08:00 Oxygen Flow Rate 40 05/28/22 18:00 BMI result Body Mass Index 40.6 Const: Other: On ventilator Resp: Other: On ventilator Cardio: Rate: tachycardic GI: Other: Soft, stoma viable, stool yet, midline incision clean and dry, packings removed Objective Data Active Medications Acetaminophen (Acetaminophen Supp 325 Mg Supp.Rect) 650 mg IN Q4H PRN PRN Reason: Fever Last Admin: 05/29/22 14:56 Dose: 650 mg Documented By: ISH Chlorhexidine Gluconate (Chlorhexidine Gluc Oral Rinse 15 Ml Mouthwash) 15 ml BUCCAL TID GAUDENCIO Last Admin: 05/30/22 08:11 Dose: 15 ml Documented By: ISH Norepinephrine Bitartrate (Levophed) 8 mg in 250 mls @ 0 mls/hr IVCONT .Q0M [facility]; Protocol Last Admin: 05/30/22 03:18 Dose: 0.15 mcg/kg/min, 22.44 mls/hr Documented By: EDILIA Meropenem 1 gm/ Sodium (Chloride) 100 mls @ 200 mls/hr IV Q8H GAUDENCIO Last Admin: 05/30/22 08:11 Dose: 200 mls/hr Documented By: ISH Propofol (Diprivan) 1,000 mg in 100 mls @ 0 mls/hr IVCONT .Q0M GAUDENCIO; Protocol Last Admin: 05/30/22 05:56 Dose: 20 mcg/kg/min, 12.47 mls/hr Documented By: EDILIA Fentanyl (Sublimaze/Ns) 1,000 mcg in 100 mls @ 0 mls/hr IVCONT .Q0M [facility]; Protocol Last Admin: 05/30/22 04:19 Dose: 150 mcg/hr, 15 mls/hr Documented By: EDILIA Magnesium Sulfate 10 meq/Potassium Phosphate 40 mmol/Calcium Gluconate 9.3 meq/Potassium Acetate 100 meq/Multivitamins 11 ml/ Trace Metals 1.1 ml/ Amino Acids/Dextrose 1,800 mls @ 75 mls/hr IV DAILY@1800 [facility] Stop: 05/30/22 17:59 Last Admin: 05/29/22 18:00 Dose: 75 mls/hr Documented By: KEIRA Caspofungin 50 mg/ Sodium (Chloride) 250 mls @ 250 mls/hr IV ONCE ONE Stop: 05/30/22 15:59 Levofloxacin (Levaquin) 500 mg in 100 mls @ 100 mls/hr IV ONCE ONE Stop: 05/30/22 16:59 Insulin Human Lispro (Insulin Lispro 100 Unit/Ml 3 Ml Vial) 0 unit SUBCUT Q6H [facility]; Protocol Last Admin: 05/30/22 05:37 Dose: 8 unit Documented By: EDILIA Naloxone HCl (Naloxone Hcl 0.4 Mg/Ml Vial) 0.2 mg IVPUSH Q2M PRN PRN Reason: Excessive sedation or RR < 8 Pharmacy Consult (Consult Rx Perform Med Rec) 1 each MISCELLANE ONCE PRN PRN Reason: Consult order Sodium Chloride (0.9 % Sodium Chloride Flush 3 Ml Syringe) 3 ml IVFLUSH QSHIFT [facility] Last Admin: 05/30/22 08:11 Dose: 3 ml Documented By: ISH Labs CBC & Chem 7: 06/01/22 05:05 06/01/22 05:05 Labs: Laboratory Results - last 24 hr 05/29/22 05/29/22 05/29/22 05:12 05:14 11:46 MCV MCH MCHC RDW Plt Count MPV Immature Gran % (Auto) Neut % (Auto) Lymph % (Auto) [place] % (Auto) Eos % (Auto) Baso % (Auto) Lymph # (Auto) [place] # (Auto) Eos # (Auto) Baso # (Auto) Abs Immat Gran (auto) Absolute Neuts (auto) Absolute Nucleated RBC Nucleated RBC % (auto) Neutrophils % (Manual) Band Neutrophils % Lymphocytes % (Manual) Monocytes % (Manual) Metamyelocytes % Abs Neuts (Manual) 9.6 H Lymphocytes # (Manual) 1.0 L Monocytes # (Manual) 0.1 Eosinophils # (Manual) 0.5 H Metamyelocytes # 0.2 Toxic Granulation Platelet Estimate Large Platelets Plt Morphology Comment RBC Morphology Polychromasia Microcytosis Spherocytes [place] Cells VBG pH 7.39 VBG pCO2 33 VBG pO2 79 VBG HCO3 20 L VBG O2 Saturation 96.0 VBG Base Excess -3.6 Anion Gap Estim Creat Clear Calc Estimated GFR POC Glucose 251 H Random Glucose Lactic Acid Lactic Acid F/U @ 2Hr Lactic Acid F/U @ 4Hr Calcium Phosphorus Magnesium Total Bilirubin AST ALT Alkaline Phosphatase C-Reactive Protein Total Protein Albumin Procalcitonin 05/29/22 05/29/22 05/29/22 17:42 18:42 18:42 MCV MCH MCHC RDW Plt Count MPV Immature Gran % (Auto) Neut % (Auto) Lymph % (Auto) [place] % (Auto) Eos % (Auto) Baso % (Auto) Lymph # (Auto) [place] # (Auto) Eos # (Auto) Baso # (Auto) Abs Immat Gran (auto) Absolute Neuts (auto) Absolute Nucleated RBC Nucleated RBC % (auto) Neutrophils % (Manual) Band Neutrophils % Lymphocytes % (Manual) Monocytes % (Manual) Metamyelocytes % Abs Neuts (Manual) Lymphocytes # (Manual) Monocytes # (Manual) Eosinophils # (Manual) Metamyelocytes # Toxic Granulation Platelet Estimate Large Platelets Plt Morphology Comment RBC Morphology Polychromasia Microcytosis Spherocytes [place] Cells VBG pH VBG pCO2 VBG pO2 VBG HCO3 VBG O2 Saturation VBG Base Excess Anion Gap 15 Estim Creat Clear Calc 59.2 Estimated GFR 48 POC Glucose 275 H Random Glucose 306 H Lactic Acid 2.1 H* Lactic Acid F/U @ 2Hr Lactic Acid F/U @ 4Hr Calcium 7.5 L Phosphorus Magnesium Total Bilirubin AST ALT Alkaline Phosphatase C-Reactive Protein Total Protein Albumin Procalcitonin 05/29/22 05/29/22 05/29/22 18:50 20:48 20:48 MCV MCH MCHC RDW Plt Count MPV Immature Gran % (Auto) Neut % (Auto) Lymph % (Auto) [place] % (Auto) Eos % (Auto) Baso % (Auto) Lymph # (Auto) [place] # (Auto) Eos # (Auto) Baso # (Auto) Abs Immat Gran (auto) Absolute Neuts (auto) Absolute Nucleated RBC Nucleated RBC % (auto) Neutrophils % (Manual) Band Neutrophils % Lymphocytes % (Manual) Monocytes % (Manual) Metamyelocytes % Abs Neuts (Manual) Lymphocytes # (Manual) Monocytes # (Manual) Eosinophils # (Manual) Metamyelocytes # Toxic Granulation Platelet Estimate Large Platelets Plt Morphology Comment RBC Morphology Polychromasia Microcytosis Spherocytes [place] Cells VBG pH 7.37 VBG pCO2 34 VBG pO2 55 VBG HCO3 20 L VBG O2 Saturation 85.0 VBG Base Excess -3.9 Anion Gap 15 Estim Creat Clear Calc 61.3 Estimated GFR 50 POC Glucose Random Glucose 325 H Lactic Acid Lactic Acid F/U @ 2Hr 2.1 H* Lactic Acid F/U @ 4Hr Calcium 7.7 L Phosphorus Magnesium Total Bilirubin AST ALT Alkaline Phosphatase C-Reactive Protein Total Protein Albumin Procalcitonin 05/29/22 05/30/22 05/30/22 23:24 05:00 05:00 MCV 90.5 MCH 29.1 MCHC 32.1 RDW 16.9 H Plt Count 258 D MPV 12.7 H Immature Gran % (Auto) Cancelled Neut % (Auto) Cancelled Lymph % (Auto) Cancelled [place] % (Auto) Cancelled Eos % (Auto) Cancelled Baso % (Auto) Cancelled Lymph # (Auto) Cancelled [place] # (Auto) Cancelled Eos # (Auto) Cancelled Baso # (Auto) Cancelled Abs Immat Gran (auto) Cancelled Absolute Neuts (auto) Cancelled Absolute Nucleated RBC 0.000 Nucleated RBC % (auto) 0.0 Neutrophils % (Manual) 62 Band Neutrophils % 29 H Lymphocytes % (Manual) 5 L Monocytes % (Manual) 1 L Metamyelocytes % 3 Abs Neuts (Manual) 18.3 H Lymphocytes # (Manual) 1.0 L Monocytes # (Manual) 0.2 Eosinophils # (Manual) Metamyelocytes # 0.6 Toxic Granulation PRESENT Platelet Estimate NORMAL Large Platelets PRESENT Plt Morphology Comment NOTE RBC Morphology NOTED Polychromasia 1+ (0-2) Microcytosis 1+ (5-14) Spherocytes 1+ (0-2) [place] Cells 1+ (0-2) VBG pH VBG pCO2 VBG pO2 VBG HCO3 VBG O2 Saturation VBG Base Excess Anion Gap Estim Creat Clear Calc Estimated GFR POC Glucose 298 H Random Glucose Lactic Acid Lactic Acid F/U @ 2Hr Lactic Acid F/U @ 4Hr 2.3 H* Calcium Phosphorus Magnesium Total Bilirubin AST ALT Alkaline Phosphatase C-Reactive Protein Total Protein Albumin Procalcitonin 05/30/22 05/30/22 05/30/22 05:00 05:00 05:07 MCV MCH MCHC RDW Plt Count MPV Immature Gran % (Auto) Neut % (Auto) Lymph % (Auto) [place] % (Auto) Eos % (Auto) Baso % (Auto) Lymph # (Auto) [place] # (Auto) Eos # (Auto) Baso # (Auto) Abs Immat Gran (auto) Absolute Neuts (auto) Absolute Nucleated RBC Nucleated RBC % (auto) Neutrophils % (Manual) Band Neutrophils % Lymphocytes % (Manual) Monocytes % (Manual) Metamyelocytes % Abs Neuts (Manual) Lymphocytes # (Manual) Monocytes # (Manual) Eosinophils # (Manual) Metamyelocytes # Toxic Granulation Platelet Estimate Large Platelets Plt Morphology Comment RBC Morphology Polychromasia Microcytosis Spherocytes [place] Cells VBG pH 7.34 VBG pCO2 38 VBG pO2 48 VBG HCO3 21 L VBG O2 Saturation 76.0 VBG Base Excess -4.1 Anion Gap 17 Estim Creat Clear Calc 64.8 Estimated GFR 53 POC Glucose Random Glucose 393 H* Lactic Acid Lactic Acid F/U @ 2Hr Lactic Acid F/U @ 4Hr Calcium 7.4 L Phosphorus 5.0 H Magnesium 2.0 Total Bilirubin 1.5 H AST 22 D ALT 22 Alkaline Phosphatase 64 C-Reactive Protein 32.85 H Total Protein 4.4 L Albumin 2.4 L Procalcitonin 10.31 05/30/22 05:33 MCV MCH MCHC RDW Plt Count MPV Immature Gran % (Auto) Neut % (Auto) Lymph % (Auto) [place] % (Auto) Eos % (Auto) Baso % (Auto) Lymph # (Auto) [place] # (Auto) Eos # (Auto) Baso # (Auto) Abs Immat Gran (auto) Absolute Neuts (auto) Absolute Nucleated RBC Nucleated RBC % (auto) Neutrophils % (Manual) Band Neutrophils % Lymphocytes % (Manual) Monocytes % (Manual) Metamyelocytes % Abs Neuts (Manual) Lymphocytes # (Manual) Monocytes # (Manual) Eosinophils # (Manual) Metamyelocytes # Toxic Granulation Platelet Estimate Large Platelets Plt Morphology Comment RBC Morphology Polychromasia Microcytosis Spherocytes [place] Cells VBG pH VBG pCO2 VBG pO2 VBG HCO3 VBG O2 Saturation VBG Base Excess Anion Gap Estim Creat Clear Calc Estimated GFR POC Glucose 328 H Random Glucose Lactic Acid Lactic Acid F/U @ 2Hr Lactic Acid F/U @ 4Hr Calcium Phosphorus Magnesium Total Bilirubin AST ALT Alkaline Phosphatase C-Reactive Protein Total Protein Albumin Procalcitonin Microbiology Microbiology Results: Microbiology 05/29/22 15:05 Sputum Culture - Preliminary Sputum - Suctioned No growth to date. 05/28/22 Unknown Gram Stain - Final Peritoneal Fluid Anaerobic Culture - Preliminary Culture in progress. Body Fluid Culture - Preliminary Culture in progress. 05/29/22 05:14 Blood Culture - Preliminary Blood - Venous No growth after 24 hours. 05/29/22 05:14 Blood Culture - Preliminary Blood - Venous No growth after 24 hours. 05/28/22 16:47 Gram Stain - Final Sputum - Suctioned Sputum Culture - Preliminary No growth to date. Procedures Date of Service Date of Service: 05/30/22 Arterial Line Size (Gauge): 16 Progress Note: A&P Assessment and plan (1) Perforated viscus: Status: Acute Assessment and Plan: Status post sigmoid resection, colostomy WBC elevated NOHEMI drain appears turbid with pus With fevers Intra-abdominal pressures lower overnight CT scan of the abdomen pelvis - patient at high risk for intra-abdominal abscesses Clinically still with peritonitis On meropenem, caspofungin TPN Packings from the abdominal wound removed Remains critically ill Family updated Discussed with ICU staff Time Spent With Patient Time: Total time spent is greater than 50% in coordination of care (as documented) at patient's floor/unit and/or counseling patient: Quality Stroke Does the patient have a stroke diagnosis?: No VTE Prior VTE?: No VTE Risk Level:: Medical - moderate - high VTE Device Contraindication: N/A - Device Ordered VTE Drug Contraindication: N/A - Med Ordered
--- NOTE | 2022-05-30 09:26 | MHC.CLN ---
F/U REVIEWED LABS DISCUSSED WITH PHARMACY RECOMMEND CONTINUING [id number] TO 75ML/HR PROVIDES 1278KCALS (1607TOTAL KCALS WITH SEDATION; 26KCALS/KG BASED ON CMW), 90G PROTEIN (1.5G/KG BASED ON CMW) TRIGS WNL-CONTINUE HOLDING LIPIDS TODAY REPLETE LYTES NEEDED
[2022-05-30] MEDS: iohexoL 350 MG/ML 100 ML INFUS..BTL IV (12:06)
[2022-05-30 12:39] LABS: Glucose, Whole Blood 327 mg/dL (60-115)
--- NOTE | 2022-05-30 14:06 | MHC.CM.PN ---
Pt continues care in ICU on ventilatory support following emergent surgery for a perforated viscus. Pt w/temps: cx pending: No plans for extubation at this time: Initial d/c plan was for a return to home: this will need to be revisited once pt is extubated as she will be deconditioned and may need teaching/care for her new ostomy. CM to follow.
--- NOTE | 2022-05-30 14:16 | PM.CCPN ---
Subjective Subjective Date of Service: 05/30/22 Interval History: 62-year-old female with underlying Crohn's disease and presented with bowel perforation and extensive stool soilage of the peritoneum had a diverting ostomy as well as an extensive washout and closed primarily and this had a brook course now that were more than a week out with persistent ileus febrile to 103 requiring full ventilator support again after in 0 a brief time on on pressure support had a go back on to assist control with increasing abdominal pressure which is now improving she also had iatrogenic fluid overload with an elevated CVP is 17 that responded to IV diuretics but now is auto diuresing and at this point and improving renal function numbers but today went over the CT scan and with contrast we are able to define several collections in the pelvis in the abdomen and at least 2 of those were going to place with Interventional Radiology 2 drains Critical Care Time (minutes): 60 Physical Exam Vital Signs: Vital Signs: Last Vital Signs Temp 100.6 F H 05/30/22 12:00 Pulse 116 H 05/30/22 13:00 Resp 17 05/30/22 13:00 BP 85/77 L 05/30/22 13:00 Pulse Ox 91 L 05/30/22 13:00 O2 Del Method 05/30/22 13:00 O2 Flow Rate 3 05/23/22 14:38 FiO2 30 05/30/22 13:00 Oxygen Flow Rate 40 05/28/22 18:00 BMI result Body Mass Index 40.6 Yesterday's if fevers now arms sit very significantly defervesced heart rate of 144 yesterday down to 116 today stable oxygen saturations Diminishing abdominal pressure down to 14 from previous of 18 and CVP is reading at 6 Cardiac exam with stable LV function and normal sinus rhythm And chest with very diminished lung volumes and very diminished bilateral breath sounds no adventitious sounds Objective Data Labs CBC & Chem 7: 05/30/22 05:00 05/30/22 05:00 Labs: Laboratory Results - last 24 hr 05/29/22 05/29/22 05/29/22 17:42 18:42 18:42 WBC RBC Hgb Hct MCV MCH MCHC RDW Plt Count MPV Immature Gran % (Auto) Neut % (Auto) Lymph % (Auto) [place] % (Auto) Eos % (Auto) Baso % (Auto) Lymph # (Auto) [place] # (Auto) Eos # (Auto) Baso # (Auto) Abs Immat Gran (auto) Absolute Neuts (auto) Absolute Nucleated RBC Nucleated RBC % (auto) Neutrophils % (Manual) Band Neutrophils % Lymphocytes % (Manual) Monocytes % (Manual) Metamyelocytes % Abs Neuts (Manual) Lymphocytes # (Manual) Monocytes # (Manual) Metamyelocytes # Toxic Granulation Platelet Estimate Large Platelets Plt Morphology Comment RBC Morphology Polychromasia Microcytosis Spherocytes [place] Cells VBG pH VBG pCO2 VBG pO2 VBG HCO3 VBG O2 Saturation VBG Base Excess Sodium 141 Potassium 5.0 Chloride 110 H Carbon Dioxide 21 L Anion Gap 15 BUN 43 H Creatinine 1.15 Estim Creat Clear Calc 59.2 Estimated GFR 48 POC Glucose 275 H Random Glucose 306 H Lactic Acid 2.1 H* Lactic Acid F/U @ 2Hr Lactic Acid F/U @ 4Hr Calcium 7.5 L Phosphorus Magnesium Total Bilirubin AST ALT Alkaline Phosphatase C-Reactive Protein Total Protein Albumin Procalcitonin 05/29/22 05/29/22 05/29/22 18:50 20:48 20:48 WBC RBC Hgb Hct MCV MCH MCHC RDW Plt Count MPV Immature Gran % (Auto) Neut % (Auto) Lymph % (Auto) [place] % (Auto) Eos % (Auto) Baso % (Auto) Lymph # (Auto) [place] # (Auto) Eos # (Auto) Baso # (Auto) Abs Immat Gran (auto) Absolute Neuts (auto) Absolute Nucleated RBC Nucleated RBC % (auto) Neutrophils % (Manual) Band Neutrophils % Lymphocytes % (Manual) Monocytes % (Manual) Metamyelocytes % Abs Neuts (Manual) Lymphocytes # (Manual) Monocytes # (Manual) Metamyelocytes # Toxic Granulation Platelet Estimate Large Platelets Plt Morphology Comment RBC Morphology Polychromasia Microcytosis Spherocytes [place] Cells VBG pH 7.37 VBG pCO2 34 VBG pO2 55 VBG HCO3 20 L VBG O2 Saturation 85.0 VBG Base Excess -3.9 Sodium 141 Potassium 5.0 Chloride 110 H Carbon Dioxide 21 L Anion Gap 15 BUN 44 H Creatinine 1.11 Estim Creat Clear Calc 61.3 Estimated GFR 50 POC Glucose Random Glucose 325 H Lactic Acid Lactic Acid F/U @ 2Hr 2.1 H* Lactic Acid F/U @ 4Hr Calcium 7.7 L Phosphorus Magnesium Total Bilirubin AST ALT Alkaline Phosphatase C-Reactive Protein Total Protein Albumin Procalcitonin 05/29/22 05/30/22 05/30/22 23:24 05:00 05:00 WBC 20.1 H RBC 3.99 L Hgb 11.6 L Hct 36.1 L MCV 90.5 MCH 29.1 MCHC 32.1 RDW 16.9 H Plt Count 258 D MPV 12.7 H Immature Gran % (Auto) Cancelled Neut % (Auto) Cancelled Lymph % (Auto) Cancelled [place] % (Auto) Cancelled Eos % (Auto) Cancelled Baso % (Auto) Cancelled Lymph # (Auto) Cancelled [place] # (Auto) Cancelled Eos # (Auto) Cancelled Baso # (Auto) Cancelled Abs Immat Gran (auto) Cancelled Absolute Neuts (auto) Cancelled Absolute Nucleated RBC 0.000 Nucleated RBC % (auto) 0.0 Neutrophils % (Manual) 62 Band Neutrophils % 29 H Lymphocytes % (Manual) 5 L Monocytes % (Manual) 1 L Metamyelocytes % 3 Abs Neuts (Manual) 18.3 H Lymphocytes # (Manual) 1.0 L Monocytes # (Manual) 0.2 Metamyelocytes # 0.6 Toxic Granulation PRESENT Platelet Estimate NORMAL Large Platelets PRESENT Plt Morphology Comment NOTE RBC Morphology NOTED Polychromasia 1+ (0-2) Microcytosis 1+ (5-14) Spherocytes 1+ (0-2) [place] Cells 1+ (0-2) VBG pH VBG pCO2 VBG pO2 VBG HCO3 VBG O2 Saturation VBG Base Excess Sodium Potassium Chloride Carbon Dioxide Anion Gap BUN Creatinine Estim Creat Clear Calc Estimated GFR POC Glucose 298 H Random Glucose Lactic Acid Lactic Acid F/U @ 2Hr Lactic Acid F/U @ 4Hr 2.3 H* Calcium Phosphorus Magnesium Total Bilirubin AST ALT Alkaline Phosphatase C-Reactive Protein Total Protein Albumin Procalcitonin 05/30/22 05/30/22 05/30/22 05:00 05:00 05:07 WBC RBC Hgb Hct MCV MCH MCHC RDW Plt Count MPV Immature Gran % (Auto) Neut % (Auto) Lymph % (Auto) [place] % (Auto) Eos % (Auto) Baso % (Auto) Lymph # (Auto) [place] # (Auto) Eos # (Auto) Baso # (Auto) Abs Immat Gran (auto) Absolute Neuts (auto) Absolute Nucleated RBC Nucleated RBC % (auto) Neutrophils % (Manual) Band Neutrophils % Lymphocytes % (Manual) Monocytes % (Manual) Metamyelocytes % Abs Neuts (Manual) Lymphocytes # (Manual) Monocytes # (Manual) Metamyelocytes # Toxic Granulation Platelet Estimate Large Platelets Plt Morphology Comment RBC Morphology Polychromasia Microcytosis Spherocytes [place] Cells VBG pH 7.34 VBG pCO2 38 VBG pO2 48 VBG HCO3 21 L VBG O2 Saturation 76.0 VBG Base Excess -4.1 Sodium 142 Potassium 5.0 Chloride 109 H Carbon Dioxide 21 L Anion Gap 17 BUN 47 H Creatinine 1.05 Estim Creat Clear Calc 64.8 Estimated GFR 53 POC Glucose Random Glucose 393 H* Lactic Acid Lactic Acid F/U @ 2Hr Lactic Acid F/U @ 4Hr Calcium 7.4 L Phosphorus 5.0 H Magnesium 2.0 Total Bilirubin 1.5 H AST 22 D ALT 22 Alkaline Phosphatase 64 C-Reactive Protein 32.85 H Total Protein 4.4 L Albumin 2.4 L Procalcitonin 10.31 05/30/22 05/30/22 05:33 12:30 WBC RBC Hgb Hct MCV MCH MCHC RDW Plt Count MPV Immature Gran % (Auto) Neut % (Auto) Lymph % (Auto) [place] % (Auto) Eos % (Auto) Baso % (Auto) Lymph # (Auto) [place] # (Auto) Eos # (Auto) Baso # (Auto) Abs Immat Gran (auto) Absolute Neuts (auto) Absolute Nucleated RBC Nucleated RBC % (auto) Neutrophils % (Manual) Band Neutrophils % Lymphocytes % (Manual) Monocytes % (Manual) Metamyelocytes % Abs Neuts (Manual) Lymphocytes # (Manual) Monocytes # (Manual) Metamyelocytes # Toxic Granulation Platelet Estimate Large Platelets Plt Morphology Comment RBC Morphology Polychromasia Microcytosis Spherocytes [place] Cells VBG pH VBG pCO2 VBG pO2 VBG HCO3 VBG O2 Saturation VBG Base Excess Sodium Potassium Chloride Carbon Dioxide Anion Gap BUN Creatinine Estim Creat Clear Calc Estimated GFR POC Glucose 328 H 327 H Random Glucose Lactic Acid Lactic Acid F/U @ 2Hr Lactic Acid F/U @ 4Hr Calcium Phosphorus Magnesium Total Bilirubin AST ALT Alkaline Phosphatase C-Reactive Protein Total Protein Albumin Procalcitonin Microbiology Microbiology Results: Microbiology 05/29/22 15:05 Sputum - Suctioned Gram Stain - Final 05/29/22 15:05 Sputum - Suctioned Sputum Culture - Preliminary No growth to date. 05/28/22 Unknown Peritoneal Fluid Gram Stain - Final 05/28/22 Unknown Peritoneal Fluid Anaerobic Culture - Preliminary Culture in progress. 05/28/22 Unknown Peritoneal Fluid Body Fluid Culture - Preliminary Culture in progress. 05/28/22 16:47 Sputum - Suctioned Gram Stain - Final 05/28/22 16:47 Sputum - Suctioned Sputum Culture - Preliminary Culture in progress. 05/29/22 05:14 Blood - Venous Blood Culture - Preliminary No growth after 24 hours. 05/29/22 05:14 Blood - Venous Blood Culture - Preliminary No growth after 24 hours. 05/23/22 Unknown Peritoneal Fluid Gram Stain - Final 05/23/22 Unknown Peritoneal Fluid Routine Culture - Final Escherichia coli 05/23/22 Unknown Peritoneal Fluid Anaerobic Culture - Final Clostridium perfringens Bacteroides thetaiotaomicron 05/19/22 08:49 Blood - Venous Blood Culture - Final No growth after 5 days. 05/19/22 08:49 Blood - Venous Blood Culture - Final No growth after 5 days. Progress Note: A&P Assessment and plan (1) Ileus following gastrointestinal surgery: Status: Acute (2) Thrombocytopenia: Status: Acute (3) Anemia: Status: Acute (4) Hypernatremia: Status: Acute (5) Septic shock: Status: Acute (6) Shock: Status: Acute (7) Perforated viscus: Status: Acute (8) Hypokalemia: Status: Acute (9) Constipation: Status: Acute (10) Fibromyalgia: Status: Acute (11) Exacerbation of Crohn's disease: Status: Acute (12) Colitis: Status: Acute (13) Acute proctitis: Status: Acute (14) Hives: Status: Acute (15) Viral illness: Status: Acute Plan So the plan is exactly as above currently on meropenem and and Levaquin and under CT guidance we plan at least in 2 areas to drained with Interventional Radiology Quality Stroke Does the patient have a stroke diagnosis?: No VTE Prior VTE?: No VTE Risk Level:: Medical - moderate - high VTE Device Contraindication: N/A - Device Ordered VTE Drug Contraindication: N/A - Med Ordered
[2022-05-30] MEDS: Caspofungin Acetate 50 MG in 0.9 % Sodium Chloride 250 ML 250 MG IV (14:49)
--- NOTE | 2022-05-30 15:03 | PM.EVENT ---
Event Note Date of Service: 05/31/22 Event Note: CT reviewed with radiologist Multiple fluid collections within the abdomen Pelvic collection appears thicker I have arranged for CT drainage - discussed with Dr. Nava Multiple drains may be placed Continues to have good urine output Await stoma function
[2022-05-30] MEDS: fentaNYL citrate/NS 1,000 MCG/100 ML PLAST..BAG 20 MCG IVCONT (15:29)
--- NOTE | 2022-05-30 16:41 | PM.GIPN ---
Subjective Subjective Date of Service: 05/30/22 Interval History: sedated Critical Care Time (minutes): 0 Physical Exam Vital Signs: Vital Signs: Last Vital Signs Temp 100.8 F H 05/30/22 15:55 Pulse 119 H 05/30/22 15:55 Resp 16 05/30/22 15:55 BP 93/51 L 05/30/22 15:55 Pulse Ox 90 L 05/30/22 15:55 O2 Del Method 05/30/22 15:55 O2 Flow Rate 3 05/23/22 14:38 FiO2 30 05/30/22 15:55 Oxygen Flow Rate 40 05/28/22 18:00 BMI result Body Mass Index 40.6 GI: Other: abdomen is sl distended Objective Data Labs CBC & Chem 7: 05/30/22 05:00 05/30/22 05:00 Procedures Date of Service Date of Service: 05/30/22 Arterial Line Size (Gauge): 16 Progress Note: A&P Assessment and plan (1) Perforated viscus: Status: Acute Assessment and Plan: ct reviewed discussed with nursing ir drainage planned antibiotic regimen being tailored. Time Spent With Patient Time: Total time spent is greater than 50% in coordination of care (as documented) at patient's floor/unit and/or counseling patient: Quality Stroke Does the patient have a stroke diagnosis?: No VTE Prior VTE?: No VTE Risk Level:: Medical - moderate - high VTE Device Contraindication: N/A - Device Ordered VTE Drug Contraindication: N/A - Med Ordered
[2022-05-30 18:02] LABS: HIT-Patient Optical Density 0.026 OD UNITS; Heparin Induced Plt Ab Negative (Negative)
[2022-05-30] MEDS: levoFLOXacin/D5W 500 MG/100 ML PIGGYBACK 100 MG IV (18:24)
[2022-05-30 18:28] LABS: Glucose, Whole Blood 312 mg/dL (60-115)
[2022-05-30] MEDS: propofoL 1,000 MG/100 ML VIAL 18.7 MG IVCONT (18:29)
--- NOTE | 2022-05-30 18:48 | PC.NURSE ---
Assumed care at 0700. Patient presenting with RR 16-24, temp 99.7, HR 110s, SBPs 120s, O2 sats >92%%, breathing non-labored. Patient transported to CT for imaging- see report. Patient transported back to ICU. Patient breathing became labored, irregular breathing pattern with RR up to the high 40s, fentanyl and propofol titrated per EMAR, RT called and at bedside, MD aware. SBPs 70s-80s, levophed titrated per EMAR to keep MAP >65. Patient transported to CT for procedure. Patient transported back to ICU by IR staff. Patient O2 saturation 79%, RT called and at bedside. Patient given 100% supplemental O2, FiO2 titrated to 60% by RT to maintain O2 sats >92%. No changes in lung sounds auscultated by this RN. called, Stat CXR ordered- see report.
[2022-05-30] MEDS: Albumin Human 25 % 100 ML IV ×2 (21:05→21:40)
[2022-05-30 23:25] LABS: Glucose, Whole Blood 275 mg/dL (60-115)
[2022-05-31] VITALS (34 sets, daily range): BP systolic 85–172; BP diastolic 48–84; PULSE 96–133; RESP 15–41; TEMP 34.9–38.9; O2SAT 84–99
[2022-05-31] MEDS: Insulin Lispro 100 UNIT/ML 3 ML VIAL SUBCUT ×4 (00:36→17:51)
[2022-05-31] MEDS: propofoL 1,000 MG/100 ML VIAL 18.7 MG IVCONT ×3 (00:37→09:39)
[2022-05-31] MEDS: fentaNYL citrate/NS 1,000 MCG/100 ML PLAST..BAG 20 MCG IVCONT ×2 (02:16→05:43)
[2022-05-31 05:17] LABS: Glucose, Whole Blood 231 mg/dL (60-115)
[2022-05-31 05:24] LABS: VBG Base Excess -0.6 mmol/L; VBG HCO3 23 mmol/L (22-26); VBG pCO2 37 mmHg; VBG pH 7.41 (7.32-7.43); VBG pO2 44 mmHg
[2022-05-31 05:25] LABS: Venous Blood Gas Refer to POC result
[2022-05-31 05:34] LABS: Hematocrit 26.5 % (37.0-47.0); Hemoglobin 8.6 g/dl (12.0-16.0); Mean Corpuscular HGB Conc 32.5 g/dl (31.0-35.0); Mean Corpuscular Hemoglobin 29.7 pg (27.0-33.0); Mean Corpuscular Volume 91.4 fL (80.0-98.0); Mean Platelet Volume 12.7 fL (9.4-12.3); Platelet Count 180 X10*3/uL (160-400); Red Cell Distribution Width 16.7 % (11.0-16.0); White Blood Count 12.5 X10*3/uL (4.8-10.8)
[2022-05-31] MEDS: Acetaminophen Supp 325 MG SUPP.RECT 650 MG PR ×2 (05:42→14:52)
[2022-05-31 05:46] LABS: Alanine Aminotransferase 16 U/L (0-31); Albumin Level 2.8 g/dL (3.5-5.0); Alkaline Phosphatase 52 U/L (39-117); Anion Gap 14 (12-20); Aspartate Amino Transferase 19 U/L (5-31); Bilirubin Total 0.8 mg/dL (0.0-1.0); Blood Urea Nitrogen 47 mg/dL (9-16); Calcium 7.8 mg/dL (8.4-10.2); Carbon Dioxide 24 mmol/L (22-29); Chloride 110 mmol/L (96-108); Creatinine Clr Calc Pharmacy 63.6; Estimated Glomerular Filt Rate 52; Glucose Random 286 mg/dL (60-115); Phosphorus 3.6 mg/dL (2.7-4.5); Potassium 4.4 mmol/L (3.3-5.1); Sodium 144 mmol/L (135-145); Total Protein 4.6 g/dL (6.5-8.0)
[2022-05-31 05:58] LABS: Band Neutrophils Percent 12 % (3-5); Eosinophils Absolute Manual 0.4 X10*3/uL (0.0-0.4); Eosinophils Percent Manual 3 % (0-4); Lymphocytes Absolute Manual 0.8 X10*3/uL (1.2-4.9); Lymphocytes Percent Manual 6 % (20-40); Monocytes Absolute Manual 0.6 X10*3/uL (0.1-1.2); Monocytes Percent Manual 5 % (2-11); Neutrophils Absolute Manual 10.8 X10*3/uL (2.0-8.3); Neutrophils Percent Manual 74 % (45-73)
[2022-05-31 05:59] LABS: RBC Morphology NOTED
[2022-05-31 06:00] LABS: Hypochromasia 1+ (5-14) /OIF; Microcytosis 1+ (5-14) /OIF; Polychromasia 1+ (0-2) /OIF
[2022-05-31 06:01] LABS: Burr Cells 1+ (0-2) /OIF; Dohle Bodies PRESENT; Platelet Estimate NORMAL (NORMAL); Toxic Granulation PRESENT
[2022-05-31 06:02] LABS: Large Platelet PRESENT; Platelet Morphology Comment NOTED
[2022-05-31] MEDS: Chlorhexidine Gluc Oral Rinse 15 ML MOUTHWASH BUCCAL ×3 (07:39→20:10)
[2022-05-31] MEDS: 0.9 % Sodium Chloride Flush 3 ML SYRINGE IVFLUSH ×3 (07:47→23:14)
--- NOTE | 2022-05-31 08:29 | PM.PNGS ---
Subjective Subjective Date of Service: 06/01/22 Interval history: Still on vent CT drainage of collections x2 done yesterday Hemodynamically seems to be improving since drainage Good urine output Physical Exam Vital Signs: Vital Signs: Last Vital Signs Temp 100.2 F 05/31/22 08:00 Pulse 109 H 05/31/22 08:00 Resp 17 05/31/22 08:00 BP 124/55 L 05/31/22 08:00 Pulse Ox 93 05/31/22 08:00 O2 Del Method 05/31/22 08:00 O2 Flow Rate 3 05/23/22 14:38 FiO2 30 05/31/22 08:03 Oxygen Flow Rate 60 05/30/22 18:00 BMI result Body Mass Index 40.6 Const: Other: On ventilator Resp: Other: Still on ventilator Cardio: Rhythm: regular rhythm GI: Other: NOHEMI drain intraop with serous drainage, drains in place from CT drainage, also draining, incision clean, stoma viable but without significant output Objective Data Active Medications Acetaminophen (Acetaminophen Supp 325 Mg Supp.Rect) 650 mg LA Q4H PRN PRN Reason: Fever Last Admin: 05/31/22 05:42 Dose: 650 mg Documented By: EDILIA Chlorhexidine Gluconate (Chlorhexidine Gluc Oral Rinse 15 Ml Mouthwash) 15 ml BUCCAL TID [facility] Last Admin: 05/31/22 07:39 Dose: 15 ml Documented By: DONTRELL Norepinephrine Bitartrate (Levophed) 8 mg in 250 mls @ 0 mls/hr IVCONT .Q0M [facility]; Protocol Last Titration: 05/31/22 08:09 Dose: 0.09 mcg/kg/min, 13.47 mls/hr Documented By: DONTRELL Meropenem 1 gm/ Sodium (Chloride) 100 mls @ 200 mls/hr IV Q8H [facility] Last Infusion: 05/31/22 08:10 Dose: 0 mls/hr Documented By: DONTRELL Propofol (Diprivan) 1,000 mg in 100 mls @ 0 mls/hr IVCONT .Q0M [facility]; Protocol Last Admin: 05/31/22 04:41 Dose: 30 mcg/kg/min, 18.7 mls/hr Documented By: LUIS Fentanyl (Sublimaze/Ns) 1,000 mcg in 100 mls @ 0 mls/hr IVCONT .Q0M [facility]; Protocol Last Titration: 05/31/22 07:38 Dose: 100 mcg/hr, 10 mls/hr Documented By: DONTRELL Magnesium Sulfate 10 meq/Potassium Phosphate 30 mmol/Calcium Gluconate 9.3 meq/Potassium Acetate 100 meq/Multivitamins 11 ml/ Trace Metals 1.1 ml/ Amino Acids/Dextrose 1,800 mls @ 75 mls/hr IV DAILY@1800 [facility] Stop: 05/31/22 17:59 Last Admin: 05/30/22 18:25 Dose: 75 mls/hr Documented By: ISH Insulin Human Lispro (Insulin Lispro 100 Unit/Ml 3 Ml Vial) 0 unit SUBCUT Q6H [facility]; Protocol Last Admin: 05/31/22 05:42 Dose: 4 unit Documented By: EDILIA Naloxone HCl (Naloxone Hcl 0.4 Mg/Ml Vial) 0.2 mg IVPUSH Q2M PRN PRN Reason: Excessive sedation or RR < 8 Pharmacy Consult (Consult Rx Perform Med Rec) 1 each MISCELLANE ONCE PRN PRN Reason: Consult order Sodium Chloride (0.9 % Sodium Chloride Flush 3 Ml Syringe) 3 ml IVFLUSH QSHIFT [facility] Last Admin: 05/31/22 07:47 Dose: 3 ml Documented By: DONTRELL Labs CBC & Chem 7: 06/01/22 05:05 06/01/22 05:05 Labs: Laboratory Results - last 24 hr 05/27/22 05/30/22 05/30/22 06:38 12:30 18:24 MCV MCH MCHC RDW Plt Count MPV Immature Gran % (Auto) Neut % (Auto) Lymph % (Auto) [place] % (Auto) Eos % (Auto) Baso % (Auto) Lymph # (Auto) [place] # (Auto) Eos # (Auto) Baso # (Auto) Abs Immat Gran (auto) Absolute Neuts (auto) Absolute Nucleated RBC Nucleated RBC % (auto) Neutrophils % (Manual) Band Neutrophils % Lymphocytes % (Manual) Monocytes % (Manual) Eosinophils % (Manual) Abs Neuts (Manual) Lymphocytes # (Manual) Monocytes # (Manual) Eosinophils # (Manual) Toxic Granulation Dohle Bodies Platelet Estimate Large Platelets Plt Morphology Comment RBC Morphology Polychromasia Hypochromasia Microcytosis [place] Cells VBG pH VBG pCO2 VBG pO2 VBG HCO3 VBG O2 Saturation VBG Base Excess Anion Gap Estim Creat Clear Calc Estimated GFR POC Glucose 327 H 312 H Random Glucose Calcium Phosphorus Magnesium Total Bilirubin AST ALT Alkaline Phosphatase Total Protein Albumin Heparin Dep Plt Ab OD 0.026 Hep-Induced Plt Ab Britt Negative 05/30/22 05/31/22 05/31/22 23:22 05:12 05:12 MCV 91.4 MCH 29.7 MCHC 32.5 RDW 16.7 H Plt Count 180 D MPV 12.7 H Immature Gran % (Auto) Cancelled Neut % (Auto) Cancelled Lymph % (Auto) Cancelled [place] % (Auto) Cancelled Eos % (Auto) Cancelled Baso % (Auto) Cancelled Lymph # (Auto) Cancelled [place] # (Auto) Cancelled Eos # (Auto) Cancelled Baso # (Auto) Cancelled Abs Immat Gran (auto) Cancelled Absolute Neuts (auto) Cancelled Absolute Nucleated RBC 0.000 Nucleated RBC % (auto) 0.0 Neutrophils % (Manual) 74 H Band Neutrophils % 12 H Lymphocytes % (Manual) 6 L Monocytes % (Manual) 5 Eosinophils % (Manual) 3 Abs Neuts (Manual) 10.8 H Lymphocytes # (Manual) 0.8 L Monocytes # (Manual) 0.6 Eosinophils # (Manual) 0.4 Toxic Granulation PRESENT Dohle Bodies PRESENT Platelet Estimate NORMAL Large Platelets PRESENT Plt Morphology Comment NOTED RBC Morphology NOTED Polychromasia 1+ (0-2) Hypochromasia 1+ (5-14) Microcytosis 1+ (5-14) [place] Var[place] Cells 1+ (0-2) VBG pH VBG pCO2 VBG pO2 VBG HCO3 VBG O2 Saturation VBG Base Excess Anion Gap 14 Estim Creat Clear Calc 63.6 Estimated GFR 52 POC Glucose 275 H Random Glucose 286 H Calcium 7.8 L Phosphorus 3.6 Magnesium 2.0 Total Bilirubin 0.8 AST 19 ALT 16 Alkaline Phosphatase 52 Total Protein 4.6 L Albumin 2.8 L Heparin Dep Plt Ab OD Hep-Induced Plt Ab Britt 05/31/22 05/31/22 05:13 05:17 MCV MCH MCHC RDW Plt Count MPV Immature Gran % (Auto) Neut % (Auto) Lymph % (Auto) [place] % (Auto) Eos % (Auto) Baso % (Auto) Lymph # (Auto) [place] # (Auto) Eos # (Auto) Baso # (Auto) Abs Immat Gran (auto) Absolute Neuts (auto) Absolute Nucleated RBC Nucleated RBC % (auto) Neutrophils % (Manual) Band Neutrophils % Lymphocytes % (Manual) Monocytes % (Manual) Eosinophils % (Manual) Abs Neuts (Manual) Lymphocytes # (Manual) Monocytes # (Manual) Eosinophils # (Manual) Toxic Granulation Dohle Bodies Platelet Estimate Large Platelets Plt Morphology Comment RBC Morphology Polychromasia Hypochromasia Microcytosis [place] Cells VBG pH 7.41 VBG pCO2 37 VBG pO2 44 VBG HCO3 23 VBG O2 Saturation 73.0 VBG Base Excess -0.6 Anion Gap Estim Creat Clear Calc Estimated GFR POC Glucose 231 H Random Glucose Calcium Phosphorus Magnesium Total Bilirubin AST ALT Alkaline Phosphatase Total Protein Albumin Heparin Dep Plt Ab OD Hep-Induced Plt Ab Britt Microbiology Microbiology Results: Microbiology 05/29/22 05:14 Blood Culture - Preliminary Blood - Venous No growth after 48 hours. 05/29/22 05:14 Blood Culture - Preliminary Blood - Venous No growth after 48 hours. 05/29/22 15:14 Blood Culture - Preliminary Blood - Venous No growth after 24 hours. 05/29/22 15:13 Blood Culture - Preliminary Blood - Venous No growth after 24 hours. 05/29/22 15:05 Gram Stain - Final Sputum - Suctioned Sputum Culture - Preliminary No growth to date. 05/28/22 Unknown Gram Stain - Final Peritoneal Fluid Anaerobic Culture - Preliminary Culture in progress. Body Fluid Culture - Preliminary Culture in progress. 05/28/22 16:47 Gram Stain - Final Sputum - Suctioned Sputum Culture - Preliminary Culture in progress. Procedures Date of Service Date of Service: 05/31/22 Arterial Line Size (Gauge): 16 Progress Note: A&P Assessment and plan (1) Ileus following gastrointestinal surgery: Status: Acute Assessment and Plan: Status post CT drain for fluid collections Images reviewed - foreign body seen likely part of the drain as other images postop do not show any other extraneous foreign body Hemodynamically more stable Continue IV antibiotics Critically ill Abdomen soft IV antibiotics Good urine output ICU care TPN for nutrition Time Spent With Patient Time: Total time spent is greater than 50% in coordination of care (as documented) at patient's floor/unit and/or counseling patient: Quality Stroke Does the patient have a stroke diagnosis?: No VTE Prior VTE?: No VTE Risk Level:: Medical - moderate - high VTE Device Contraindication: N/A - Device Ordered VTE Drug Contraindication: N/A - Med Ordered
--- NOTE | 2022-05-31 09:48 | MHC.CLN ---
F/U REVIEWED LABS DISCUSSED WITH PHARMACY RECOMMEND CONTINUING D15AA5 TO 75ML/HR PROVIDES 1278KCALS (1772TOTAL KCALS WITH SEDATION; 29KCALS/KG BASED ON CMW), 90G PROTEIN (1.5G/KG BASED ON CMW) TRIGS WNL-CONTINUE HOLDING LIPIDS TODAY REPLETE LYTES NEEDED
--- NOTE | 2022-05-31 09:55 | P.PNCC_ITS ---
Subjective Subjective Date of Service: 05/31/22 Interval History: 62-year-old female with background history of inflammatory bowel disease as well as diverticular disease and who presented with a perforated bowel extensive fecal soilage of the peritoneum extensive exploratory surgery with repair diverting ostomy washout and then subsequently last night because she was very toxic very high fever of 103 intractably heart rate 144 difficulty on the ventilator so clearly persistently septic we did a CT scan showing 2 walled off collections which were rather large and under CT scan guidance placed 2 drain tubes with over a L of fecal it material being reclaim and she has defervesced considerably hemodynamically looks excellent abdominal pressure is now down from the mid teens to between 10 and 11 CVP is averaging about 6 a certainly between 6 6 in 8 and remains in sinus rhythm but heart rate is now down to 102 blood pressures are 100/50 and we are weaning some of the sedation everything looks excellent warm well perfused abdomen is a little softer but still no sign of a functioning ostomy Critical Care Time (minutes): 60 Physical Exam Vital Signs: Vital Signs: Last Vital Signs Temp 100.2 F 05/31/22 08:00 Pulse 110 H 05/31/22 09:00 Resp 20 05/31/22 09:00 BP 100/49 L 05/31/22 09:00 Pulse Ox 84 L 05/31/22 09:00 O2 Del Method 05/31/22 09:00 O2 Flow Rate 3 05/23/22 14:38 FiO2 30 05/31/22 09:00 Oxygen Flow Rate 60 05/30/22 18:00 BMI result Body Mass Index 40.6 Sedated and intubated and much work comfortable on the assist control with lower minutes ventilatory requirement improvement in blood gas reduction of negative base excess all excellent Continue diuresis indicating to me that she has recouping 3rd space fluid as we continue just simply her TPN Abdomen softer no organomegaly Chest without adventitious sounds Bedside echo with normal 60-65% ejection fraction and no primary valve or pericardial disease Objective Data Labs CBC & Chem 7: 05/31/22 05:12 05/31/22 05:12 Labs: Laboratory Results - last 24 hr 05/27/22 05/30/22 05/30/22 06:38 12:30 18:24 WBC RBC Hgb Hct MCV MCH MCHC RDW Plt Count MPV Immature Gran % (Auto) Neut % (Auto) Lymph % (Auto) [place] % (Auto) Eos % (Auto) Baso % (Auto) Lymph # (Auto) [place] # (Auto) Eos # (Auto) Baso # (Auto) Abs Immat Gran (auto) Absolute Neuts (auto) Absolute Nucleated RBC Nucleated RBC % (auto) Neutrophils % (Manual) Band Neutrophils % Lymphocytes % (Manual) Monocytes % (Manual) Eosinophils % (Manual) Abs Neuts (Manual) Lymphocytes # (Manual) Monocytes # (Manual) Eosinophils # (Manual) Toxic Granulation Dohle Bodies Platelet Estimate Large Platelets Plt Morphology Comment RBC Morphology Polychromasia Hypochromasia Microcytosis [place] Cells VBG pH VBG pCO2 VBG pO2 VBG HCO3 VBG O2 Saturation VBG Base Excess Sodium Potassium Chloride Carbon Dioxide Anion Gap BUN Creatinine Estim Creat Clear Calc Estimated GFR POC Glucose 327 H 312 H Random Glucose Calcium Phosphorus Magnesium Total Bilirubin AST ALT Alkaline Phosphatase Total Protein Albumin Heparin Dep Plt Ab OD 0.026 Hep-Induced Plt Ab Britt Negative 05/30/22 05/31/22 05/31/22 23:22 05:12 05:12 WBC 12.5 H RBC 2.90 L D Hgb 8.6 L D Hct 26.5 L D MCV 91.4 MCH 29.7 MCHC 32.5 RDW 16.7 H Plt Count 180 D MPV 12.7 H Immature Gran % (Auto) Cancelled Neut % (Auto) Cancelled Lymph % (Auto) Cancelled [place] % (Auto) Cancelled Eos % (Auto) Cancelled Baso % (Auto) Cancelled Lymph # (Auto) Cancelled [place] # (Auto) Cancelled Eos # (Auto) Cancelled Baso # (Auto) Cancelled Abs Immat Gran (auto) Cancelled Absolute Neuts (auto) Cancelled Absolute Nucleated RBC 0.000 Nucleated RBC % (auto) 0.0 Neutrophils % (Manual) 74 H Band Neutrophils % 12 H Lymphocytes % (Manual) 6 L Monocytes % (Manual) 5 Eosinophils % (Manual) 3 Abs Neuts (Manual) 10.8 H Lymphocytes # (Manual) 0.8 L Monocytes # (Manual) 0.6 Eosinophils # (Manual) 0.4 Toxic Granulation PRESENT Dohle Bodies PRESENT Platelet Estimate NORMAL Large Platelets PRESENT Plt Morphology Comment NOTED RBC Morphology NOTED Polychromasia 1+ (0-2) Hypochromasia 1+ (5-14) Microcytosis 1+ (5-14) [place] Cells 1+ (0-2) VBG pH VBG pCO2 VBG pO2 VBG HCO3 VBG O2 Saturation VBG Base Excess Sodium 144 Potassium 4.4 Chloride 110 H Carbon Dioxide 24 Anion Gap 14 BUN 47 H Creatinine 1.07 Estim Creat Clear Calc 63.6 Estimated GFR 52 POC Glucose 275 H Random Glucose 286 H Calcium 7.8 L Phosphorus 3.6 Magnesium 2.0 Total Bilirubin 0.8 AST 19 ALT 16 Alkaline Phosphatase 52 Total Protein 4.6 L Albumin 2.8 L Heparin Dep Plt Ab OD Hep-Induced Plt Ab Britt 05/31/22 05/31/22 05:13 05:17 WBC RBC Hgb Hct MCV MCH MCHC RDW Plt Count MPV Immature Gran % (Auto) Neut % (Auto) Lymph % (Auto) [place] % (Auto) Eos % (Auto) Baso % (Auto) Lymph # (Auto) [place] # (Auto) Eos # (Auto) Baso # (Auto) Abs Immat Gran (auto) Absolute Neuts (auto) Absolute Nucleated RBC Nucleated RBC % (auto) Neutrophils % (Manual) Band Neutrophils % Lymphocytes % (Manual) Monocytes % (Manual) Eosinophils % (Manual) Abs Neuts (Manual) Lymphocytes # (Manual) Monocytes # (Manual) Eosinophils # (Manual) Toxic Granulation Dohle Bodies Platelet Estimate Large Platelets Plt Morphology Comment RBC Morphology Polychromasia Hypochromasia Microcytosis [place] Cells VBG pH 7.41 VBG pCO2 37 VBG pO2 44 VBG HCO3 23 VBG O2 Saturation 73.0 VBG Base Excess -0.6 Sodium Potassium Chloride Carbon Dioxide Anion Gap BUN Creatinine Estim Creat Clear Calc Estimated GFR POC Glucose 231 H Random Glucose Calcium Phosphorus Magnesium Total Bilirubin AST ALT Alkaline Phosphatase Total Protein Albumin Heparin Dep Plt Ab OD Hep-Induced Plt Ab Britt Microbiology Microbiology Results: Microbiology 05/29/22 05:14 Blood - Venous Blood Culture - Preliminary No growth after 48 hours. 05/29/22 05:14 Blood - Venous Blood Culture - Preliminary No growth after 48 hours. 05/29/22 15:14 Blood - Venous Blood Culture - Preliminary No growth after 24 hours. 05/29/22 15:13 Blood - Venous Blood Culture - Preliminary No growth after 24 hours. 05/29/22 15:05 Sputum - Suctioned Gram Stain - Final 05/29/22 15:05 Sputum - Suctioned Sputum Culture - Preliminary No growth to date. 05/28/22 Unknown Peritoneal Fluid Gram Stain - Final 05/28/22 Unknown Peritoneal Fluid Anaerobic Culture - Preliminary Culture in progress. 05/28/22 Unknown Peritoneal Fluid Body Fluid Culture - Preliminary Culture in progress. 05/28/22 16:47 Sputum - Suctioned Gram Stain - Final 05/28/22 16:47 Sputum - Suctioned Sputum Culture - Preliminary Culture in progress. 05/23/22 Unknown Peritoneal Fluid Gram Stain - Final 05/23/22 Unknown Peritoneal Fluid Routine Culture - Final Escherichia coli 05/23/22 Unknown Peritoneal Fluid Anaerobic Culture - Final Clostridium perfringens Bacteroides thetaiotaomicron 05/19/22 08:49 Blood - Venous Blood Culture - Final No growth after 5 days. 05/19/22 08:49 Blood - Venous Blood Culture - Final No growth after 5 days. Progress Note: A&P Assessment and plan (1) Ileus following gastrointestinal surgery: Status: Acute (2) Thrombocytopenia: Status: Acute (3) Anemia: Status: Acute (4) Hypernatremia: Status: Acute (5) Septic shock: Status: Acute (6) Shock: Status: Acute (7) Perforated viscus: Status: Acute (8) Hypokalemia: Status: Acute (9) Constipation: Status: Acute (10) Fibromyalgia: Status: Acute (11) Exacerbation of Crohn's disease: Status: Acute (12) Colitis: Status: Acute (13) Acute proctitis: Status: Acute (14) Viral illness: Status: Acute (15) Hives: Status: Acute Plan Plan is to wean sedation and attempt sedation holiday and if successful PSV trial and then possible follow-up CT scan tomorrow morning to look for extent of residual collection so we could decide if anything else needs to be drained Quality Stroke Does the patient have a stroke diagnosis?: No VTE Prior VTE?: No VTE Risk Level:: Medical - moderate - high VTE Device Contraindication: N/A - Device Ordered VTE Drug Contraindication: N/A - Med Ordered
[2022-05-31 11:59] LABS: Glucose, Whole Blood 262 mg/dL (60-115)
[2022-05-31] MEDS: metroNIDAZOLE/NS 500 MG/100 ML PIGGYBACK 100 MG IV ×2 (14:15→21:58)
[2022-05-31] MEDS: Caspofungin Acetate 50 MG in 0.9 % Sodium Chloride 250 ML 250 MG IV (14:27)
[2022-05-31] MEDS: propofoL 1,000 MG/100 ML VIAL 21.82 MG IVCONT ×2 (15:25→20:09)
--- NOTE | 2022-05-31 16:34 | PM.GIPN ---
Subjective Subjective Date of Service: 05/31/22 Interval History: sedated, intubated Critical Care Time (minutes): 0 Physical Exam Vital Signs: Vital Signs: Last Vital Signs Temp 100.8 F H 05/31/22 16:00 Pulse 117 H 05/31/22 16:00 Resp 23 H 05/31/22 16:00 BP 91/49 L 05/31/22 16:00 Pulse Ox 93 05/31/22 16:00 O2 Del Method 05/31/22 16:00 O2 Flow Rate 3 05/23/22 14:38 FiO2 30 05/31/22 16:00 Oxygen Flow Rate 60 05/30/22 18:00 BMI result Body Mass Index 40.6 GI: Other: abdomen seems less distended Objective Data Labs CBC & Chem 7: 05/31/22 05:12 05/31/22 05:12 Microbiology Microbiology Results: Microbiology 05/28/22 Unknown Peritoneal Fluid Gram Stain - Final 05/28/22 Unknown Peritoneal Fluid Anaerobic Culture - Preliminary Culture in progress. 05/28/22 Unknown Peritoneal Fluid Body Fluid Culture - Preliminary Yeast 05/29/22 15:05 Sputum - Suctioned Gram Stain - Final 05/29/22 15:05 Sputum - Suctioned Sputum Culture - Preliminary Yeast 05/28/22 16:47 Sputum - Suctioned Gram Stain - Final 05/28/22 16:47 Sputum - Suctioned Sputum Culture - Preliminary Yeast 05/29/22 05:14 Blood - Venous Blood Culture - Preliminary No growth after 48 hours. 05/29/22 05:14 Blood - Venous Blood Culture - Preliminary No growth after 48 hours. 05/29/22 15:14 Blood - Venous Blood Culture - Preliminary No growth after 24 hours. 05/29/22 15:13 Blood - Venous Blood Culture - Preliminary No growth after 24 hours. 05/23/22 Unknown Peritoneal Fluid Gram Stain - Final 05/23/22 Unknown Peritoneal Fluid Routine Culture - Final Escherichia coli 05/23/22 Unknown Peritoneal Fluid Anaerobic Culture - Final Clostridium perfringens Bacteroides thetaiotaomicron 05/19/22 08:49 Blood - Venous Blood Culture - Final No growth after 5 days. 05/19/22 08:49 Blood - Venous Blood Culture - Final No growth after 5 days. Procedures Date of Service Date of Service: 05/31/22 Arterial Line Size (Gauge): 16 Progress Note: A&P Assessment and plan (1) Perforated viscus: Status: Acute Assessment and Plan: slight improvement but continues febrile and tachycardic after drainage continue supportive care. Time Spent With Patient Time: Total time spent is greater than 50% in coordination of care (as documented) at patient's floor/unit and/or counseling patient: Quality Stroke Does the patient have a stroke diagnosis?: No VTE Prior VTE?: No VTE Risk Level:: Medical - moderate - high VTE Device Contraindication: N/A - Device Ordered VTE Drug Contraindication: N/A - Med Ordered
--- NOTE | 2022-05-31 17:06 | PC.NURSE ---
LEVOPHED TITRATED OFF AT 1052 TITRATED DOWN PROPOFOL AND FENTANYL FOR SEDATION VACATION STARTING AT 1128. SEDATION VACATION FAILED. PROPOFOL STARTED AT 20 PER MD AT 1248. ABDOMEN DRESSING CHANGED, SKIN NOTED TO BE PINK WITH SLIGHT INFLAMMATION, MD NOTIFIED, CLEANED WITH CHLORHEXIDINE AND NEW DRESSING APPLIED. T MAX 102.2, TYLENOL SUPPOSITORY ADMINISTERED WITH SOME EFFECT. CURRENT CORE TEMP 100.3 REPOSITION Q2HR, BATHED, HAIR WASHED, ORAL CARE ADMINISTERED SCHEDULED.
[2022-05-31 17:43] LABS: Glucose, Whole Blood 241 mg/dL (60-115)
[2022-05-31] MEDS: levoFLOXacin/D5W 500 MG/100 ML PIGGYBACK 100 MG IV (17:57)
[2022-05-31 23:52] LABS: Glucose, Whole Blood 222 mg/dL (60-115)
[2022-06-01] VITALS (31 sets, daily range): BP systolic 105–162; BP diastolic 23–69; PULSE 79–120; RESP 15–31; TEMP 34.9–38.9; O2SAT 92–98; BMI 44.7
[2022-06-01] MEDS: Insulin Lispro 100 UNIT/ML 3 ML VIAL SUBCUT ×5 (00:01→23:56)
[2022-06-01] MEDS: propofoL 1,000 MG/100 ML VIAL 21.82 MG IVCONT ×6 (04:25→21:32)
[2022-06-01] MEDS: Acetaminophen Supp 325 MG SUPP.RECT 650 MG PR ×2 (04:31→20:53)
[2022-06-01 05:12] LABS: VBG Base Excess -0.1 mmol/L; VBG HCO3 21 mmol/L (22-26); VBG pCO2 26 mmHg; VBG pH 7.52 (7.32-7.43); VBG pO2 38 mmHg
[2022-06-01 05:24] LABS: Hematocrit 24.4 % (37.0-47.0); Hemoglobin 8.1 g/dl (12.0-16.0); Mean Corpuscular HGB Conc 33.2 g/dl (31.0-35.0); Mean Corpuscular Hemoglobin 29.3 pg (27.0-33.0); Mean Corpuscular Volume 88.4 fL (80.0-98.0); Mean Platelet Volume 12.2 fL (9.4-12.3); Platelet Count 209 X10*3/uL (160-400); Red Blood Count 2.76 X10*6/uL (4.20-5.50); Red Cell Distribution Width 16.7 % (11.0-16.0); White Blood Count 12.4 X10*3/uL (4.8-10.8)
[2022-06-01 05:33] LABS: Glucose, Whole Blood 258 mg/dL (60-115)
[2022-06-01 05:42] LABS: Venous Blood Gas Refer to POC result
[2022-06-01] MEDS: metroNIDAZOLE/NS 500 MG/100 ML PIGGYBACK 100 MG IV ×2 (05:42→18:01)
[2022-06-01 05:43] LABS: Band Neutrophils Percent 3 % (3-5); Eosinophils Absolute Manual 0.2 X10*3/uL (0.0-0.4); Eosinophils Percent Manual 2 % (0-4); Lymphocytes Absolute Manual 0.7 X10*3/uL (1.2-4.9); Lymphocytes Percent Manual 6 % (20-40); Monocytes Absolute Manual 0.5 X10*3/uL (0.1-1.2); Monocytes Percent Manual 4 % (2-11); Neutrophils Absolute Manual 10.9 X10*3/uL (2.0-8.3); Neutrophils Percent Manual 85 % (45-73)
[2022-06-01 05:44] LABS: RBC Morphology NOTED
[2022-06-01 05:45] LABS: Alanine Aminotransferase 16 U/L (0-31); Albumin Level 2.3 g/dL (3.5-5.0); Alkaline Phosphatase 53 U/L (39-117); Anion Gap 15 (12-20); Aspartate Amino Transferase 18 U/L (5-31); Bilirubin Total 0.8 mg/dL (0.0-1.0); Blood Urea Nitrogen 45 mg/dL (9-16); Burr Cells 1+ (0-2) /OIF; Calcium 7.5 mg/dL (8.4-10.2); Carbon Dioxide 21 mmol/L (22-29); Chloride 111 mmol/L (96-108); Creatinine Clr Calc Pharmacy 67.4; Dohle Bodies PRESENT; Estimated Glomerular Filt Rate 56; Glucose Random 284 mg/dL (60-115); Hypochromasia 1+ (5-14) /OIF; Platelet Estimate NORMAL (NORMAL); Platelet Morphology Comment NORMAL; Polychromasia 1+ (0-2) /OIF; Potassium 3.8 mmol/L (3.3-5.1); Sodium 143 mmol/L (135-145); Total Protein 4.3 g/dL (6.5-8.0); Toxic Granulation PRESENT; Toxic Vacuolation PRESENT
--- NOTE | 2022-06-01 07:30 | P.PNCC_ITS ---
Subjective Subjective Date of Service: 06/01/22 Interval History: 62-year-old female with background of Crohn's disease underwent lower endoscopy it was noted that she had had a perforation with extensive stool soilage of the peritoneal cavity underwent emergent surgery with washout and resection of the perforated area and a brought out and ostomy which finally today for the 1st time we noted some stool entering the ostomy bag and this is of course since we have had the drainage of the 2 major collections up in the left upper quadrant as well as in the pelvis and both of which were feet can lint and the white count has since been improving even temperature peaks of been improving and now we have ostomy function and the her acute renal injury on presentation also continues to improve with excellent urine output Critical Care Time (minutes): 45 Physical Exam Vital Signs: Vital Signs: Last Vital Signs Temp 100.0 F 06/01/22 07:00 Pulse 109 H 06/01/22 07:00 Resp 15 06/01/22 07:00 BP 109/55 L 06/01/22 07:00 Pulse Ox 95 06/01/22 07:00 O2 Del Method 06/01/22 07:00 O2 Flow Rate 3 05/23/22 14:38 FiO2 30 06/01/22 07:00 Oxygen Flow Rate 60 05/30/22 18:00 BMI result Body Mass Index 44.7 Persistently normal LV and RV function no apparent valve dysfunction or vegetation on bedside echo Sedated and intubated with identical FiO2 and minutes ventilatory requirements Abdomen is somewhat softer with no organomegaly Lungs with scattered bilateral adventitious sounds Objective Data Labs CBC & Chem 7: 06/03/22 06:00 06/03/22 06:00 Labs: Laboratory Results - last 24 hr 05/31/22 05/31/22 05/31/22 11:53 17:40 23:47 WBC RBC Hgb Hct MCV MCH MCHC RDW Plt Count MPV Immature Gran % (Auto) Neut % (Auto) Lymph % (Auto) [place] % (Auto) Eos % (Auto) Baso % (Auto) Lymph # (Auto) [place] # (Auto) Eos # (Auto) Baso # (Auto) Abs Immat Gran (auto) Absolute Neuts (auto) Absolute Nucleated RBC Nucleated RBC % (auto) Neutrophils % (Manual) Band Neutrophils % Lymphocytes % (Manual) Monocytes % (Manual) Eosinophils % (Manual) Abs Neuts (Manual) Lymphocytes # (Manual) Monocytes # (Manual) Eosinophils # (Manual) Toxic Granulation Toxic Vacuolation Dohle Bodies Platelet Estimate Plt Morphology Comment RBC Morphology Polychromasia Hypochromasia [place] Cells VBG pH VBG pCO2 VBG pO2 VBG HCO3 VBG O2 Saturation VBG Base Excess Sodium Potassium Chloride Carbon Dioxide Anion Gap BUN Creatinine Estim Creat Clear Calc Estimated GFR POC Glucose 262 H 241 H 222 H Random Glucose Calcium Phosphorus Magnesium Total Bilirubin AST ALT Alkaline Phosphatase Total Protein Albumin 06/01/22 06/01/22 06/01/22 05:05 05:05 05:07 WBC 12.4 H RBC 2.76 L Hgb 8.1 L Hct 24.4 L MCV 88.4 MCH 29.3 MCHC 33.2 RDW 16.7 H Plt Count 209 MPV 12.2 Immature Gran % (Auto) Cancelled Neut % (Auto) Cancelled Lymph % (Auto) Cancelled [place] % (Auto) Cancelled Eos % (Auto) Cancelled Baso % (Auto) Cancelled Lymph # (Auto) Cancelled [place] # (Auto) Cancelled Eos # (Auto) Cancelled Baso # (Auto) Cancelled Abs Immat Gran (auto) Cancelled Absolute Neuts (auto) Cancelled Absolute Nucleated RBC 0.000 Nucleated RBC % (auto) 0.0 Neutrophils % (Manual) 85 H Band Neutrophils % 3 Lymphocytes % (Manual) 6 L Monocytes % (Manual) 4 Eosinophils % (Manual) 2 Abs Neuts (Manual) 10.9 H Lymphocytes # (Manual) 0.7 L Monocytes # (Manual) 0.5 Eosinophils # (Manual) 0.2 Toxic Granulation PRESENT Toxic Vacuolation PRESENT Dohle Bodies PRESENT Platelet Estimate NORMAL Plt Morphology Comment NORMAL RBC Morphology NOTED Polychromasia 1+ (0-2) Hypochromasia 1+ (5-14) [place] Cells 1+ (0-2) VBG pH 7.52 H VBG pCO2 26 VBG pO2 38 VBG HCO3 21 L VBG O2 Saturation 66.0 VBG Base Excess -0.1 Sodium 143 Potassium 3.8 Chloride 111 H Carbon Dioxide 21 L Anion Gap 15 BUN 45 H Creatinine 1.01 Estim Creat Clear Calc 67.4 Estimated GFR 56 POC Glucose Random Glucose 284 H Calcium 7.5 L Phosphorus 3.0 Magnesium 2.0 Total Bilirubin 0.8 AST 18 ALT 16 Alkaline Phosphatase 53 Total Protein 4.3 L Albumin 2.3 L 06/01/22 05:29 WBC RBC Hgb Hct MCV MCH MCHC RDW Plt Count MPV Immature Gran % (Auto) Neut % (Auto) Lymph % (Auto) [place] % (Auto) Eos % (Auto) Baso % (Auto) Lymph # (Auto) [place] # (Auto) Eos # (Auto) Baso # (Auto) Abs Immat Gran (auto) Absolute Neuts (auto) Absolute Nucleated RBC Nucleated RBC % (auto) Neutrophils % (Manual) Band Neutrophils % Lymphocytes % (Manual) Monocytes % (Manual) Eosinophils % (Manual) Abs Neuts (Manual) Lymphocytes # (Manual) Monocytes # (Manual) Eosinophils # (Manual) Toxic Granulation Toxic Vacuolation Dohle Bodies Platelet Estimate Plt Morphology Comment RBC Morphology Polychromasia Hypochromasia [place] Cells VBG pH VBG pCO2 VBG pO2 VBG HCO3 VBG O2 Saturation VBG Base Excess Sodium Potassium Chloride Carbon Dioxide Anion Gap BUN Creatinine Estim Creat Clear Calc Estimated GFR POC Glucose 258 H Random Glucose Calcium Phosphorus Magnesium Total Bilirubin AST ALT Alkaline Phosphatase Total Protein Albumin Microbiology Microbiology Results: Microbiology 05/29/22 15:14 Blood - Venous Blood Culture - Preliminary No growth after 48 hours. 05/29/22 15:13 Blood - Venous Blood Culture - Preliminary No growth after 48 hours. 05/28/22 Unknown Peritoneal Fluid Gram Stain - Final 05/28/22 Unknown Peritoneal Fluid Anaerobic Culture - Preliminary Culture in progress. 05/28/22 Unknown Peritoneal Fluid Body Fluid Culture - Preliminary Yeast 05/29/22 15:05 Sputum - Suctioned Gram Stain - Final 05/29/22 15:05 Sputum - Suctioned Sputum Culture - Preliminary Yeast 05/28/22 16:47 Sputum - Suctioned Gram Stain - Final 05/28/22 16:47 Sputum - Suctioned Sputum Culture - Preliminary Yeast 05/29/22 05:14 Blood - Venous Blood Culture - Preliminary No growth after 48 hours. 05/29/22 05:14 Blood - Venous Blood Culture - Preliminary No growth after 48 hours. 05/23/22 Unknown Peritoneal Fluid Gram Stain - Final 05/23/22 Unknown Peritoneal Fluid Routine Culture - Final Escherichia coli 05/23/22 Unknown Peritoneal Fluid Anaerobic Culture - Final Clostridium perfringens Bacteroides thetaiotaomicron 05/19/22 08:49 Blood - Venous Blood Culture - Final No growth after 5 days. 05/19/22 08:49 Blood - Venous Blood Culture - Final No growth after 5 days. Progress Note: A&P Assessment and plan (1) Status post colostomy: Status: Acute (2) Ileus following gastrointestinal surgery: Status: Acute (3) Thrombocytopenia: Status: Acute (4) Anemia: Status: Acute (5) Hypernatremia: Status: Acute (6) Septic shock: Status: Acute (7) Shock: Status: Acute (8) Perforated viscus: Status: Acute (9) Hypokalemia: Status: Acute (10) Constipation: Status: Acute (11) Fibromyalgia: Status: Acute (12) Exacerbation of Crohn's disease: Status: Acute (13) Colitis: Status: Acute (14) Acute proctitis: Status: Acute (15) Viral illness: Status: Acute (16) Hives: Status: Acute Plan So we continue to watch status post placement of 2 drain tubes and will do repeat CT scan to see if there is a necessity for the other larger collections to be drained separately or if they had communicated with the current drain Quality Stroke Does the patient have a stroke diagnosis?: No VTE Prior VTE?: No VTE Risk Level:: Medical - moderate - high VTE Device Contraindication: N/A - Device Ordered VTE Drug Contraindication: N/A - Med Ordered
[2022-06-01] MEDS: Chlorhexidine Gluc Oral Rinse 15 ML MOUTHWASH BUCCAL ×3 (07:59→20:15)
--- NOTE | 2022-06-01 08:41 | PM.PNGS ---
Subjective Subjective Date of Service: 06/03/22 Interval history: started to have good colostomy output this morning remains on the ventilator good urine output no events overnight Physical Exam Vital Signs: Vital Signs: Last Vital Signs Temp 99.9 F 06/01/22 08:00 Pulse 110 H 06/01/22 08:00 Resp 23 H 06/01/22 08:00 BP 122/63 06/01/22 08:00 Pulse Ox 97 06/01/22 08:00 O2 Del Method 06/01/22 08:00 O2 Flow Rate 3 05/23/22 14:38 FiO2 30 06/01/22 08:00 Oxygen Flow Rate 60 05/30/22 18:00 BMI result Body Mass Index 44.7 Const: Other: on ventilator, sedated Resp: Other: on ventilator Cardio: Rate: tachycardic GI: Other: colostomy with very good stool output, midline incision dry, [address] Palpation (GI): Soft to palpation Objective Data Active Medications Acetaminophen (Acetaminophen Supp 325 Mg Supp.Rect) 650 mg IA Q4H PRN PRN Reason: Fever Last Admin: 06/01/22 04:31 Dose: 650 mg Documented By: RIOS Chlorhexidine Gluconate (Chlorhexidine Gluc Oral Rinse 15 Ml Mouthwash) 15 ml BUCCAL TID GAUDENCIO Last Admin: 06/01/22 07:59 Dose: 15 ml Documented By: KIM-ESTEVANFA Fentanyl (Fentanyl Citrate/Pf 100 Mcg/2 Ml Vial) 50 mcg IVPUSH Q1H PRN; Protocol PRN Reason: Pain, Severe (Pain Scale 7-10) Norepinephrine Bitartrate (Levophed) 8 mg in 250 mls @ 0 mls/hr IVCONT .Q0M GAUDENCIO; Protocol Last Titration: 05/31/22 22:27 Dose: 0 mcg/kg/min, 0 mls/hr Documented By: RIOS Meropenem 1 gm/ Sodium (Chloride) 100 mls @ 200 mls/hr IV Q8H GAUDENCIO Last Admin: 06/01/22 08:00 Dose: 200 mls/hr Documented By: KIM-DOMINIQUE Propofol (Diprivan) 1,000 mg in 100 mls @ 0 mls/hr IVCONT .Q0M GAUDENCIO; Protocol Last Admin: 06/01/22 08:00 Dose: 35 mcg/kg/min, 21.82 mls/hr Documented By: DOMI Fentanyl (Sublimaze/Ns) 1,000 mcg in 100 mls @ 0 mls/hr IVCONT .Q0M [facility]; Protocol Last Titration: 05/31/22 21:09 Dose: 0 mcg/hr, 0 mls/hr Documented By: RIOS Magnesium Sulfate 10 meq/Potassium Phosphate 30 mmol/Calcium Gluconate 9.3 meq/Potassium Acetate 100 meq/Multivitamins 11 ml/ Trace Metals 1.1 ml/ Amino Acids/Dextrose 1,800 mls @ 75 mls/hr IV DAILY@1800 [facility] Stop: 06/01/22 17:59 Last Admin: 05/31/22 18:01 Dose: 75 mls/hr Documented By: TETREAM Metronidazole (Flagyl) 500 mg in 100 mls @ 100 mls/hr IV Q8H [facility] Last Infusion: 06/01/22 06:46 Dose: 0 mls/hr Documented By: RIOS Insulin Human Lispro (Insulin Lispro 100 Unit/Ml 3 Ml Vial) 0 unit SUBCUT Q6H [facility]; Protocol Last Admin: 06/01/22 05:41 Dose: 6 unit Documented By: RIOS Naloxone HCl (Naloxone Hcl 0.4 Mg/Ml Vial) 0.2 mg IVPUSH Q2M PRN PRN Reason: Excessive sedation or RR < 8 Pharmacy Consult (Consult Rx Perform Med Rec) 1 each MISCELLANE ONCE PRN PRN Reason: Consult order Sodium Chloride (0.9 % Sodium Chloride Flush 3 Ml Syringe) 3 ml IVFLUSH QSHIFT [facility] Last Admin: 06/01/22 07:21 Dose: Not Given Documented By: DOMI Non-Admin Reason: See Note Labs CBC & Chem 7: 06/03/22 06:00 06/03/22 06:00 Labs: Laboratory Results - last 24 hr 05/27/22 05/31/22 05/31/22 06:38 11:53 17:40 MCV MCH MCHC RDW Plt Count MPV Immature Gran % (Auto) Neut % (Auto) Lymph % (Auto) [place] % (Auto) Eos % (Auto) Baso % (Auto) Lymph # (Auto) [place] # (Auto) Eos # (Auto) Baso # (Auto) Abs Immat Gran (auto) Absolute Neuts (auto) Absolute Nucleated RBC Nucleated RBC % (auto) Neutrophils % (Manual) Band Neutrophils % Lymphocytes % (Manual) Monocytes % (Manual) Eosinophils % (Manual) Abs Neuts (Manual) Lymphocytes # (Manual) Monocytes # (Manual) Eosinophils # (Manual) Toxic Granulation Toxic Vacuolation Dohle Bodies Platelet Estimate Plt Morphology Comment RBC Morphology Polychromasia Hypochromasia [place] Cells Hep-Ind Thrombocytop Com TNP VBG pH VBG pCO2 VBG pO2 VBG HCO3 VBG O2 Saturation VBG Base Excess Anion Gap Estim Creat Clear Calc Estimated GFR POC Glucose 262 H 241 H Random Glucose Calcium Phosphorus Magnesium Total Bilirubin AST ALT Alkaline Phosphatase Total Protein Albumin 05/31/22 06/01/22 06/01/22 23:47 05:05 05:05 MCV 88.4 MCH 29.3 MCHC 33.2 RDW 16.7 H Plt Count 209 MPV 12.2 Immature Gran % (Auto) Cancelled Neut % (Auto) Cancelled Lymph % (Auto) Cancelled [place] % (Auto) Cancelled Eos % (Auto) Cancelled Baso % (Auto) Cancelled Lymph # (Auto) Cancelled [place] # (Auto) Cancelled Eos # (Auto) Cancelled Baso # (Auto) Cancelled Abs Immat Gran (auto) Cancelled Absolute Neuts (auto) Cancelled Absolute Nucleated RBC 0.000 Nucleated RBC % (auto) 0.0 Neutrophils % (Manual) 85 H Band Neutrophils % 3 Lymphocytes % (Manual) 6 L Monocytes % (Manual) 4 Eosinophils % (Manual) 2 Abs Neuts (Manual) 10.9 H Lymphocytes # (Manual) 0.7 L Monocytes # (Manual) 0.5 Eosinophils # (Manual) 0.2 Toxic Granulation PRESENT Toxic Vacuolation PRESENT Dohle Bodies PRESENT Platelet Estimate NORMAL Plt Morphology Comment NORMAL RBC Morphology NOTED Polychromasia 1+ (0-2) Hypochromasia 1+ (5-14) [place] Cells 1+ (0-2) Hep-Ind Thrombocytop Com VBG pH VBG pCO2 VBG pO2 VBG HCO3 VBG O2 Saturation VBG Base Excess Anion Gap 15 Estim Creat Clear Calc 67.4 Estimated GFR 56 POC Glucose 222 H Random Glucose 284 H Calcium 7.5 L Phosphorus 3.0 Magnesium 2.0 Total Bilirubin 0.8 AST 18 ALT 16 Alkaline Phosphatase 53 Total Protein 4.3 L Albumin 2.3 L 06/01/22 06/01/22 05:07 05:29 MCV MCH MCHC RDW Plt Count MPV Immature Gran % (Auto) Neut % (Auto) Lymph % (Auto) [place] % (Auto) Eos % (Auto) Baso % (Auto) Lymph # (Auto) [place] # (Auto) Eos # (Auto) Baso # (Auto) Abs Immat Gran (auto) Absolute Neuts (auto) Absolute Nucleated RBC Nucleated RBC % (auto) Neutrophils % (Manual) Band Neutrophils % Lymphocytes % (Manual) Monocytes % (Manual) Eosinophils % (Manual) Abs Neuts (Manual) Lymphocytes # (Manual) Monocytes # (Manual) Eosinophils # (Manual) Toxic Granulation Toxic Vacuolation Dohle Bodies Platelet Estimate Plt Morphology Comment RBC Morphology Polychromasia Hypochromasia [place] Cells Hep-Ind Thrombocytop Com VBG pH 7.52 H VBG pCO2 26 VBG pO2 38 VBG HCO3 21 L VBG O2 Saturation 66.0 VBG Base Excess -0.1 Anion Gap Estim Creat Clear Calc Estimated GFR POC Glucose 258 H Random Glucose Calcium Phosphorus Magnesium Total Bilirubin AST ALT Alkaline Phosphatase Total Protein Albumin Microbiology Microbiology Results: Microbiology 05/29/22 15:14 Blood Culture - Preliminary Blood - Venous No growth after 48 hours. 05/29/22 15:13 Blood Culture - Preliminary Blood - Venous No growth after 48 hours. 05/28/22 Unknown Gram Stain - Final Peritoneal Fluid Anaerobic Culture - Preliminary Culture in progress. Body Fluid Culture - Preliminary Yeast 05/29/22 15:05 Gram Stain - Final Sputum - Suctioned Sputum Culture - Preliminary Yeast 05/28/22 16:47 Gram Stain - Final Sputum - Suctioned Sputum Culture - Preliminary Yeast 05/29/22 05:14 Blood Culture - Preliminary Blood - Venous No growth after 48 hours. 05/29/22 05:14 Blood Culture - Preliminary Blood - Venous No growth after 48 hours. Procedures Date of Service Date of Service: 06/01/22 Arterial Line Size (Gauge): 16 Progress Note: A&P Assessment and plan (1) Status post colostomy: Status: Acute Assessment and Plan: now with stoma output NG tube output high according to nursing staff monitor NG tube output this morning, if this tapers off, will start to do a trickle feeds via NG tube [address] good urine output remains critically ill follow-up CT scan today to see if more drains are needed Time Spent With Patient Time: Total time spent is greater than 50% in coordination of care (as documented) at patient's floor/unit and/or counseling patient: Quality Stroke Does the patient have a stroke diagnosis?: No VTE Prior VTE?: No VTE Risk Level:: Medical - moderate - high VTE Device Contraindication: N/A - Device Ordered VTE Drug Contraindication: N/A - Med Ordered
--- NOTE | 2022-06-01 09:30 | MHC.CLN ---
F/U REVIEWED LABS DISCUSSED WITH PHARMACY MD NOTED: now with stoma output ?NG tube output high according to nursing staff ?monitor NG tube output this morning, if this tapers off, will start to do a trickle feeds via NG tube PT MAY START TRICKLE FEEDS TODAY-RECOMMEND VITAL 1.5 R/T HX CROHN'S RECOMMEND CONTINUING [id number] TO 75ML/HR PROVIDES 1278KCALS (1854TOTAL KCALS WITH SEDATION; 30KCALS/KG BASED ON CMW), 90G PROTEIN (1.5G/KG BASED ON CMW) TRIGS WNL-CONTINUE HOLDING LIPIDS TODAY R/T PROPOFOL REPLETE LYTES NEEDED
[2022-06-01] MEDS: fentaNYL citrate/PF 100 MCG/2 ML VIAL 50 MCG IVPUSH ×2 (10:10→20:54)
[2022-06-01 11:57] LABS: Glucose, Whole Blood 235 mg/dL (60-115)
--- NOTE | 2022-06-01 14:36 | PM.EVENT ---
Event Note Date of Service: 06/02/22 Event Note: I have reviewed his CAT scan from this morning There is fluid right side of the abdomen that does not seem to be drained by the existing drains I therefore pulled out the original NOHEMI drain a little bit bit to see if this will move adjacent to this collection I secured this NOHEMI drain with sutures the skin May need additional drain on the right side Stoma continues to function well with good output NG tube output seems to be still elevated so will hold off on tube feeds for now
--- NOTE | 2022-06-01 16:23 | PM.GIPN ---
Subjective Subjective Date of Service: 06/01/22 Interval History: on ventilator Critical Care Time (minutes): 0 Physical Exam Vital Signs: Vital Signs: Last Vital Signs Temp 100.2 F 06/01/22 15:00 Pulse 110 H 06/01/22 15:00 Resp 15 06/01/22 15:00 BP 125/68 06/01/22 15:00 Pulse Ox 97 06/01/22 15:00 O2 Del Method 06/01/22 15:00 O2 Flow Rate 3 05/23/22 14:38 FiO2 30 06/01/22 15:46 Oxygen Flow Rate 60 05/30/22 18:00 BMI result Body Mass Index 44.7 GI: Other: abdomen is less distended Objective Data Labs CBC & Chem 7: 06/01/22 05:05 06/01/22 05:05 Microbiology Microbiology Results: Microbiology 05/29/22 15:05 Sputum - Suctioned Gram Stain - Final 05/29/22 15:05 Sputum - Suctioned Sputum Culture - Final Verónica dubliniensis 05/28/22 16:47 Sputum - Suctioned Gram Stain - Final 05/28/22 16:47 Sputum - Suctioned Sputum Culture - Final [place] albicans 05/28/22 Unknown Peritoneal Fluid Gram Stain - Final 05/28/22 Unknown Peritoneal Fluid Anaerobic Culture - Preliminary Culture in progress. 05/28/22 Unknown Peritoneal Fluid Body Fluid Culture - Final Verónica dubliniensis 05/29/22 15:14 Blood - Venous Blood Culture - Preliminary No growth after 48 hours. 05/29/22 15:13 Blood - Venous Blood Culture - Preliminary No growth after 48 hours. 05/29/22 05:14 Blood - Venous Blood Culture - Preliminary No growth after 48 hours. 05/29/22 05:14 Blood - Venous Blood Culture - Preliminary No growth after 48 hours. 05/23/22 Unknown Peritoneal Fluid Gram Stain - Final 05/23/22 Unknown Peritoneal Fluid Routine Culture - Final Escherichia coli 05/23/22 Unknown Peritoneal Fluid Anaerobic Culture - Final Clostridium perfringens Bacteroides thetaiotaomicron 05/19/22 08:49 Blood - Venous Blood Culture - Final No growth after 5 days. 05/19/22 08:49 Blood - Venous Blood Culture - Final No growth after 5 days. Procedures Date of Service Date of Service: 06/01/22 Arterial Line Size (Gauge): 16 Progress Note: A&P Assessment and plan (1) Perforated viscus: Status: Acute Assessment and Plan: continues to require ventilator support. Time Spent With Patient Time: Total time spent is greater than 50% in coordination of care (as documented) at patient's floor/unit and/or counseling patient: Quality Stroke Does the patient have a stroke diagnosis?: No VTE Prior VTE?: No VTE Risk Level:: Medical - moderate - high VTE Device Contraindication: N/A - Device Ordered VTE Drug Contraindication: N/A - Med Ordered
[2022-06-01] MEDS: Albumin Human 25 % 100 ML IV ×2 (20:54→21:28)
[2022-06-01 23:53] LABS: Glucose, Whole Blood 214 mg/dL (60-115)
[2022-06-01] MEDS: fentaNYL citrate/NS 1,000 MCG/100 ML PLAST..BAG 10 MCG IVCONT (23:55)
[2022-06-01] MEDS: 0.9 % Sodium Chloride Flush 3 ML SYRINGE IVFLUSH (23:56)
[2022-06-02] VITALS (28 sets, daily range): BP systolic 99–157; BP diastolic 51–81; PULSE 103–121; RESP 18–31; TEMP 34.9–39.4; O2SAT 93–99; BMI 45.9
[2022-06-02] MEDS: propofoL 1,000 MG/100 ML VIAL 21.82 MG IVCONT (01:22)
[2022-06-02] MEDS: metroNIDAZOLE/NS 500 MG/100 ML PIGGYBACK 100 MG IV ×3 (02:07→18:11)
[2022-06-02] MEDS: propofoL 1,000 MG/100 ML VIAL 18.7 MG IVCONT ×4 (05:56→20:58)
[2022-06-02 05:57] LABS: VBG Base Excess -2.8 mmol/L; VBG HCO3 20 mmol/L (22-26); VBG pCO2 29 mmHg; VBG pH 7.44 (7.32-7.43); VBG pO2 58 mmHg
[2022-06-02 05:57] LABS: Glucose, Whole Blood 204 mg/dL (60-115)
[2022-06-02] MEDS: Insulin Lispro 100 UNIT/ML 3 ML VIAL SUBCUT ×4 (05:57→23:58)
[2022-06-02 06:01] LABS: Hematocrit 23.9 % (37.0-47.0); Hemoglobin 7.9 g/dl (12.0-16.0); Mean Corpuscular HGB Conc 33.1 g/dl (31.0-35.0); Mean Corpuscular Hemoglobin 29.5 pg (27.0-33.0); Mean Corpuscular Volume 89.2 fL (80.0-98.0); Mean Platelet Volume 11.9 fL (9.4-12.3); Platelet Count 236 X10*3/uL (160-400); Red Blood Count 2.68 X10*6/uL (4.20-5.50); Red Cell Distribution Width 16.7 % (11.0-16.0)
[2022-06-02] MEDS: levoFLOXacin/D5W 500 MG/100 ML PIGGYBACK 100 MG IV (06:01)
[2022-06-02 06:27] LABS: Atypical Lymph Absolute Manual 0.1 x10*3/uL; Atypical Lymphs Percent Manual 1 % (0-6); Band Neutrophils Percent 5 % (3-5); Eosinophils Absolute Manual 0.1 X10*3/uL (0.0-0.4); Eosinophils Percent Manual 1 % (0-4); Lymphocytes Absolute Manual 1.2 X10*3/uL (1.2-4.9); Lymphocytes Percent Manual 11 % (20-40); Monocytes Absolute Manual 0.2 X10*3/uL (0.1-1.2); Monocytes Percent Manual 2 % (2-11); Neutrophils Absolute Manual 9.4 X10*3/uL (2.0-8.3); Neutrophils Percent Manual 80 % (45-73)
[2022-06-02 06:29] LABS: Platelet Estimate NORMAL (NORMAL); RBC Morphology NOTED
[2022-06-02 06:30] LABS: Dohle Bodies PRESENT; Hypochromasia 1+ (5-14) /OIF; Platelet Morphology Comment NORMAL; Polychromasia 2+ (3-5) /OIF; Toxic Granulation PRESENT
[2022-06-02 06:32] LABS: Alanine Aminotransferase 12 U/L (0-31); Albumin Level 2.8 g/dL (3.5-5.0); Alkaline Phosphatase 53 U/L (39-117); Anion Gap 14 (12-20); Aspartate Amino Transferase 17 U/L (5-31); Bilirubin Total 0.9 mg/dL (0.0-1.0); Blood Urea Nitrogen 41 mg/dL (9-16); Calcium 7.8 mg/dL (8.4-10.2); Carbon Dioxide 21 mmol/L (22-29); Chloride 110 mmol/L (96-108); Creatinine Clr Calc Pharmacy 77.9; Estimated Glomerular Filt Rate > 60; Glucose Random 214 mg/dL (60-115); Sodium 141 mmol/L (135-145); Total Protein 4.8 g/dL (6.5-8.0)
[2022-06-02 07:32] LABS: Venous Blood Gas Refer to POC result
[2022-06-02] MEDS: Caspofungin Acetate 50 MG in 0.9 % Sodium Chloride 250 ML 250 MG IV (08:00)
[2022-06-02] MEDS: Chlorhexidine Gluc Oral Rinse 15 ML MOUTHWASH BUCCAL ×3 (08:00→20:58)
[2022-06-02] MEDS: 0.9 % Sodium Chloride Flush 3 ML SYRINGE IVFLUSH (08:00)
[2022-06-02] MEDS: fentaNYL citrate/NS 1,000 MCG/100 ML PLAST..BAG 10 MCG IVCONT ×2 (08:01→17:31)
--- NOTE | 2022-06-02 10:00 | PM.PNGS ---
Subjective Subjective Date of Service: 06/03/22 Interval history: No new events fever spikes note stoma functioning well good urine output Physical Exam Vital Signs: Vital Signs: Last Vital Signs Temp 102.0 F H 06/02/22 09:00 Pulse 117 H 06/02/22 09:00 Resp 24 H 06/02/22 09:00 BP 151/76 H 06/02/22 09:00 Pulse Ox 96 06/02/22 09:00 O2 Del Method 06/02/22 09:00 O2 Flow Rate 3 05/23/22 14:38 FiO2 30 06/02/22 09:00 Oxygen Flow Rate 60 05/30/22 18:00 BMI result Body Mass Index 45.9 Const: Other: remains on the ventilator, sedated Resp: Other: on the ventilator Cardio: Rate: tachycardic GI: Other: stoma with output, abdomen soft, drains in place Objective Data Active Medications Acetaminophen (Acetaminophen Supp 325 Mg Supp.Rect) 650 mg [place] Q4H PRN PRN Reason: Fever Last Admin: 06/01/22 20:53 Dose: 650 mg Documented By: RIOS Chlorhexidine Gluconate (Chlorhexidine Gluc Oral Rinse 15 Ml Mouthwash) 15 ml BUCCAL TID GAUDENCIO Last Admin: 06/02/22 08:00 Dose: 15 ml Documented By: KEIRA Norepinephrine Bitartrate (Levophed) 8 mg in 250 mls @ 0 mls/hr IVCONT .Q0M GAUDENCIO; Protocol Last Titration: 05/31/22 22:27 Dose: 0 mcg/kg/min, 0 mls/hr Documented By: RIOS Propofol (Diprivan) 1,000 mg in 100 mls @ 0 mls/hr IVCONT .Q0M GAUDENCIO; Protocol Last Admin: 06/02/22 05:56 Dose: 30 mcg/kg/min, 18.7 mls/hr Documented By: RIOS Magnesium Sulfate 10 meq/Potassium Phosphate 36 mmol/Calcium Gluconate 9.3 meq/Potassium Acetate 100 meq/Multivitamins 11 ml/ Trace Metals 1.1 ml/ Amino Acids/Dextrose 1,800 mls @ 75 mls/hr IV DAILY@1800 GAUDENCIO Stop: 06/02/22 17:59 Last Admin: 06/01/22 18:35 Dose: 75 mls/hr Documented By: DOMI Metronidazole (Flagyl) 500 mg in 100 mls @ 100 mls/hr IV Q8H [facility] Last Infusion: 06/02/22 03:23 Dose: 0 mls/hr Documented By: RIOS Meropenem 1 gm/ Sodium (Chloride) 100 mls @ 200 mls/hr IV Q8H [facility] Last Infusion: 06/02/22 02:01 Dose: 0 mls/hr Documented By: RIOS Fentanyl (Sublimaze/Ns) 1,000 mcg in 100 mls @ 0 mls/hr IVCONT .Q0M [facility]; Protocol Last Admin: 06/02/22 08:01 Dose: 100 mcg/hr, 10 mls/hr Documented By: KEIRA Insulin Human Lispro (Insulin Lispro 100 Unit/Ml 3 Ml Vial) 0 unit SUBCUT Q6H [facility]; Protocol Last Admin: 06/02/22 05:57 Dose: 4 unit Documented By: RIOS Naloxone HCl (Naloxone Hcl 0.4 Mg/Ml Vial) 0.2 mg IVPUSH Q2M PRN PRN Reason: Excessive sedation or RR < 8 Pharmacy Consult (Consult Rx Perform Med Rec) 1 each MISCELLANE ONCE PRN PRN Reason: Consult order Sodium Chloride (0.9 % Sodium Chloride Flush 3 Ml Syringe) 3 ml IVFLUSH QSHIFT [facility] Last Admin: 06/02/22 08:00 Dose: 3 ml Documented By: KEIRA Labs CBC & Chem 7: 06/03/22 06:00 06/03/22 06:00 Labs: Laboratory Results - last 24 hr 06/01/22 06/01/22 06/02/22 11:53 23:49 05:37 MCV 89.2 MCH 29.5 MCHC 33.1 RDW 16.7 H Plt Count 236 MPV 11.9 Immature Gran % (Auto) Cancelled Neut % (Auto) Cancelled Lymph % (Auto) Cancelled [place] % (Auto) Cancelled Eos % (Auto) Cancelled Baso % (Auto) Cancelled Lymph # (Auto) Cancelled [place] # (Auto) Cancelled Eos # (Auto) Cancelled Baso # (Auto) Cancelled Abs Immat Gran (auto) Cancelled Absolute Neuts (auto) Cancelled Absolute Nucleated RBC 0.000 Nucleated RBC % (auto) 0.0 Neutrophils % (Manual) 80 H Band Neutrophils % 5 Lymphocytes % (Manual) 11 L Atypical Lymphs % (Man) 1 Monocytes % (Manual) 2 Eosinophils % (Manual) 1 Abs Neuts (Manual) 9.4 H Lymphocytes # (Manual) 1.2 Atyp Lymphs # (Manual) 0.1 Monocytes # (Manual) 0.2 Eosinophils # (Manual) 0.1 Toxic Granulation PRESENT Dohle Bodies PRESENT Platelet Estimate NORMAL Plt Morphology Comment NORMAL RBC Morphology NOTED Polychromasia 2+ (3-5) Hypochromasia 1+ (5-14) VBG pH VBG pCO2 VBG pO2 VBG HCO3 VBG O2 Saturation VBG Base Excess Anion Gap Estim Creat Clear Calc Estimated GFR POC Glucose 235 H 214 H Random Glucose Calcium Phosphorus Magnesium Total Bilirubin AST ALT Alkaline Phosphatase Total Protein Albumin 06/02/22 06/02/22 06/02/22 05:37 05:51 05:54 MCV MCH MCHC RDW Plt Count MPV Immature Gran % (Auto) Neut % (Auto) Lymph % (Auto) [place] % (Auto) Eos % (Auto) Baso % (Auto) Lymph # (Auto) [place] # (Auto) Eos # (Auto) Baso # (Auto) Abs Immat Gran (auto) Absolute Neuts (auto) Absolute Nucleated RBC Nucleated RBC % (auto) Neutrophils % (Manual) Band Neutrophils % Lymphocytes % (Manual) Atypical Lymphs % (Man) Monocytes % (Manual) Eosinophils % (Manual) Abs Neuts (Manual) Lymphocytes # (Manual) Atyp Lymphs # (Manual) Monocytes # (Manual) Eosinophils # (Manual) Toxic Granulation Dohle Bodies Platelet Estimate Plt Morphology Comment RBC Morphology Polychromasia Hypochromasia VBG pH 7.44 H VBG pCO2 29 VBG pO2 58 VBG HCO3 20 L VBG O2 Saturation 87.0 VBG Base Excess -2.8 Anion Gap 14 Estim Creat Clear Calc 77.9 Estimated GFR > 60 POC Glucose 204 H Random Glucose 214 H Calcium 7.8 L Phosphorus 4.0 Magnesium 2.0 Total Bilirubin 0.9 AST 17 ALT 12 Alkaline Phosphatase 53 Total Protein 4.8 L Albumin 2.8 L D Microbiology Microbiology Results: Microbiology 05/29/22 15:05 Gram Stain - Final Sputum - Suctioned Sputum Culture - Final Ver[place]ica dubliniensis 05/28/22 16:47 Gram Stain - Final Sputum - Suctioned Sputum Culture - Final [place] albicans 05/28/22 Unknown Gram Stain - Final Peritoneal Fluid Anaerobic Culture - Preliminary Culture in progress. Body Fluid Culture - Final Verónica dubliniensis Procedures Date of Service Date of Service: 06/03/22 Arterial Line Size (Gauge): 16 Progress Note: A&P Assessment and plan (1) Perforated viscus: Status: Acute Assessment and Plan: follow-up CT scan done yesterday shows large fluid collection in the right mostly, not communicating with existing drains discussed with IR today - additional drains to be placed good urine output stoma functioning hemodynamicallyi seems to be more stable family updated discussed with ICU staff patient remains critically ill Time Spent With Patient Time: Total time spent is greater than 50% in coordination of care (as documented) at patient's floor/unit and/or counseling patient: Quality Stroke Does the patient have a stroke diagnosis?: No VTE Prior VTE?: No VTE Risk Level:: Medical - moderate - high VTE Device Contraindication: N/A - Device Ordered VTE Drug Contraindication: N/A - Med Ordered
--- NOTE | 2022-06-02 11:02 | MHC.CLN ---
F/U REVIEWED LABS DISCUSSED WITH PHARMACY RECOMMEND CONTINUING [id number] TO 75ML/HR PROVIDES 1278KCALS (1771TOTAL KCALS WITH SEDATION; 29KCALS/KG BASED ON CMW), 90G PROTEIN (1.5G/KG BASED ON CMW) TRIGS WNL-CONTINUE HOLDING LIPIDS TODAY R/T PROPOFOL REPLETE LYTES NEEDED
[2022-06-02 12:05] LABS: Glucose, Whole Blood 186 mg/dL (60-115)
--- NOTE | 2022-06-02 15:10 | PM.CCPN ---
Subjective Subjective Date of Service: 06/02/22 Interval History: 62-year-old female with Crohn's disease recent perforated viscus with extensive stool soilage of the peritoneum emergent surgery resecting the diseased area and brought out an ostomy with an extensive washout and has since had 2 drains placed room effectively removing 2 major feature lint collections clearly forming an abscess and today will undergo drainage of at least 1 possibly 2 separate additional sites that represents significant collections that is been discussed with IR and that is pending as she continues to produce low at least low-grade fever even in the face of some degree of resolving white count as she remains on meropenem and with the adjunct of use of metronidazole and also a presumptive use of caspofungin and only because both sputum as well as bladder have grown out Verónica a species other than albicans and she also had a severe prolonged rider in and temperature spike to greater than 103 several days earlier and she has been on TPN enough for the better part of the last 10 days be side so to clearly clearly worried about the possibility of the candidemia Critical Care Time (minutes): 45 Physical Exam Vital Signs: Vital Signs: Last Vital Signs Temp 99.3 F 06/02/22 12:00 Pulse 103 H 06/02/22 14:00 Resp 25 H 06/02/22 14:00 BP 112/58 L 06/02/22 14:00 Pulse Ox 98 06/02/22 14:00 O2 Del Method 06/02/22 14:00 O2 Flow Rate 3 05/23/22 14:38 FiO2 30 06/02/22 14:00 Oxygen Flow Rate 60 05/30/22 18:00 BMI result Body Mass Index 45.9 It patient stable and sedated and intubated after the 2 additional sites were drained there was somewhat purulence but not his feet he will it is the previous Blood pressure is now requiring just a very minimal dose of of Levophed with stable CVP of approximately 4 Bedside echo a good cardiac function Chest x-ray with persistent scattered bilateral infiltrates Abdomen a little softer with stool in the ostomy bag no palpable organomegaly No cellulitis but the there is a little bit of redness around the original central line site and I think because of the TPN especially I am going to in the next 24 hours change that line for a fresh line Objective Data Labs CBC & Chem 7: 06/03/22 06:00 06/03/22 06:00 Labs: Laboratory Results - last 24 hr 06/01/22 06/02/22 06/02/22 23:49 05:37 05:37 WBC 11.0 H RBC 2.68 L Hgb 7.9 L Hct 23.9 L MCV 89.2 MCH 29.5 MCHC 33.1 RDW 16.7 H Plt Count 236 MPV 11.9 Immature Gran % (Auto) Cancelled Neut % (Auto) Cancelled Lymph % (Auto) Cancelled [place] % (Auto) Cancelled Eos % (Auto) Cancelled Baso % (Auto) Cancelled Lymph # (Auto) Cancelled [place] # (Auto) Cancelled Eos # (Auto) Cancelled Baso # (Auto) Cancelled Abs Immat Gran (auto) Cancelled Absolute Neuts (auto) Cancelled Absolute Nucleated RBC 0.000 Nucleated RBC % (auto) 0.0 Neutrophils % (Manual) 80 H Band Neutrophils % 5 Lymphocytes % (Manual) 11 L Atypical Lymphs % (Man) 1 Monocytes % (Manual) 2 Eosinophils % (Manual) 1 Abs Neuts (Manual) 9.4 H Lymphocytes # (Manual) 1.2 Atyp Lymphs # (Manual) 0.1 Monocytes # (Manual) 0.2 Eosinophils # (Manual) 0.1 Toxic Granulation PRESENT Dohle Bodies PRESENT Platelet Estimate NORMAL Plt Morphology Comment NORMAL RBC Morphology NOTED Polychromasia 2+ (3-5) Hypochromasia 1+ (5-14) VBG pH VBG pCO2 VBG pO2 VBG HCO3 VBG O2 Saturation VBG Base Excess Sodium 141 Potassium 4.0 Chloride 110 H Carbon Dioxide 21 L Anion Gap 14 BUN 41 H Creatinine 0.94 Estim Creat Clear Calc 77.9 Estimated GFR > 60 POC Glucose 214 H Random Glucose 214 H Calcium 7.8 L Phosphorus 4.0 Magnesium 2.0 Total Bilirubin 0.9 AST 17 ALT 12 Alkaline Phosphatase 53 Total Protein 4.8 L Albumin 2.8 L D 06/02/22 06/02/22 06/02/22 05:51 05:54 11:59 WBC RBC Hgb Hct MCV MCH MCHC RDW Plt Count MPV Immature Gran % (Auto) Neut % (Auto) Lymph % (Auto) [place] % (Auto) Eos % (Auto) Baso % (Auto) Lymph # (Auto) [place] # (Auto) Eos # (Auto) Baso # (Auto) Abs Immat Gran (auto) Absolute Neuts (auto) Absolute Nucleated RBC Nucleated RBC % (auto) Neutrophils % (Manual) Band Neutrophils % Lymphocytes % (Manual) Atypical Lymphs % (Man) Monocytes % (Manual) Eosinophils % (Manual) Abs Neuts (Manual) Lymphocytes # (Manual) Atyp Lymphs # (Manual) Monocytes # (Manual) Eosinophils # (Manual) Toxic Granulation Dohle Bodies Platelet Estimate Plt Morphology Comment RBC Morphology Polychromasia Hypochromasia VBG pH 7.44 H VBG pCO2 29 VBG pO2 58 VBG HCO3 20 L VBG O2 Saturation 87.0 VBG Base Excess -2.8 Sodium Potassium Chloride Carbon Dioxide Anion Gap BUN Creatinine Estim Creat Clear Calc Estimated GFR POC Glucose 204 H 186 H Random Glucose Calcium Phosphorus Magnesium Total Bilirubin AST ALT Alkaline Phosphatase Total Protein Albumin Microbiology Microbiology Results: Microbiology 05/28/22 Unknown Peritoneal Fluid Gram Stain - Final 05/28/22 Unknown Peritoneal Fluid Anaerobic Culture - Final 05/28/22 Unknown Peritoneal Fluid Body Fluid Culture - Final Verónica dubliniensis 05/29/22 15:05 Sputum - Suctioned Gram Stain - Final 05/29/22 15:05 Sputum - Suctioned Sputum Culture - Final Verónica dubliniensis 05/28/22 16:47 Sputum - Suctioned Gram Stain - Final 05/28/22 16:47 Sputum - Suctioned Sputum Culture - Final [place] albicans 05/29/22 15:14 Blood - Venous Blood Culture - Preliminary No growth after 48 hours. 05/29/22 15:13 Blood - Venous Blood Culture - Preliminary No growth after 48 hours. 05/29/22 05:14 Blood - Venous Blood Culture - Preliminary No growth after 48 hours. 05/29/22 05:14 Blood - Venous Blood Culture - Preliminary No growth after 48 hours. 05/23/22 Unknown Peritoneal Fluid Gram Stain - Final 05/23/22 Unknown Peritoneal Fluid Routine Culture - Final Escherichia coli 05/23/22 Unknown Peritoneal Fluid Anaerobic Culture - Final Clostridium perfringens Bacteroides thetaiotaomicron 05/19/22 08:49 Blood - Venous Blood Culture - Final No growth after 5 days. 05/19/22 08:49 Blood - Venous Blood Culture - Final No growth after 5 days. Progress Note: A&P Assessment and plan (1) Status post colostomy: Status: Acute (2) Ileus following gastrointestinal surgery: Status: Acute (3) Thrombocytopenia: Status: Acute (4) Anemia: Status: Acute (5) Hypernatremia: Status: Acute (6) Septic shock: Status: Acute (7) Shock: Status: Acute (8) Perforated viscus: Status: Acute (9) Hypokalemia: Status: Acute (10) Constipation: Status: Acute (11) Fibromyalgia: Status: Acute (12) Exacerbation of Crohn's disease: Status: Acute (13) Colitis: Status: Acute (14) Acute proctitis: Status: Acute (15) Viral illness: Status: Acute (16) Hives: Status: Acute Plan The plan is to change out the central line specially in the face of the TPN and observing in waiting for blood culture results and culture of the abdominal fluid from the drainage procedure and continuing TPN but at this point I might try some trickle feeds to see if at some point we can not feed her enterally and stop the TPN Quality Stroke Does the patient have a stroke diagnosis?: No VTE Prior VTE?: No VTE Risk Level:: Medical - moderate - high VTE Device Contraindication: N/A - Device Ordered VTE Drug Contraindication: N/A - Med Ordered
--- NOTE | 2022-06-02 16:02 | PM.GIPN ---
Subjective Subjective Date of Service: 06/02/22 Interval History: intubated and sedated Critical Care Time (minutes): 0 Physical Exam Vital Signs: Vital Signs: Last Vital Signs Temp 102 F H 06/02/22 15:00 Pulse 115 H 06/02/22 15:00 Resp 27 H 06/02/22 15:00 BP 120/61 06/02/22 15:00 Pulse Ox 97 06/02/22 15:00 O2 Del Method 06/02/22 15:00 O2 Flow Rate 3 05/23/22 14:38 FiO2 30 06/02/22 15:16 Oxygen Flow Rate 60 05/30/22 18:00 BMI result Body Mass Index 45.9 Objective Data Labs CBC & Chem 7: 06/02/22 05:37 06/02/22 05:37 Procedures Date of Service Date of Service: 06/02/22 Arterial Line Size (Gauge): 16 Progress Note: A&P Assessment and plan (1) Perforated viscus: Status: Acute Plan additional drainage with IR today Time Spent With Patient Time: Total time spent is greater than 50% in coordination of care (as documented) at patient's floor/unit and/or counseling patient: Quality Stroke Does the patient have a stroke diagnosis?: No VTE Prior VTE?: No VTE Risk Level:: Medical - moderate - high VTE Device Contraindication: N/A - Device Ordered VTE Drug Contraindication: N/A - Med Ordered
--- NOTE | 2022-06-02 18:09 | PM.EVENT ---
Event Note Date of Service: 06/02/22 Event Note: additional CT drains place by IR one on left and one on right both noted to be jus ascitic -looking fluid cultures sent currently has 5 drains - only pelvic drain appears to be abscess stoma functioning well continue ICU care
[2022-06-02 18:17] LABS: Glucose, Whole Blood 170 mg/dL (60-115)
[2022-06-02] MEDS: Albumin Human 25 % 100 ML IV ×2 (21:37→22:23)
[2022-06-02 23:56] LABS: Glucose, Whole Blood 170 mg/dL (60-115)
[2022-06-02] MEDS: Acetaminophen Supp 325 MG SUPP.RECT 650 MG PR (23:59)
[2022-06-03] VITALS (35 sets, daily range): BP systolic 90–147; BP diastolic 47–76; PULSE 66–134; RESP 14–32; TEMP 34.9–39.3; O2SAT 93–99; BMI 42.9
[2022-06-03] MEDS: fentaNYL citrate/NS 1,000 MCG/100 ML PLAST..BAG 10 MCG IVCONT (01:43)
[2022-06-03] MEDS: metroNIDAZOLE/NS 500 MG/100 ML PIGGYBACK 100 MG IV ×3 (01:47→19:28)
[2022-06-03] MEDS: propofoL 1,000 MG/100 ML VIAL 18.7 MG IVCONT ×3 (01:58→10:36)
[2022-06-03 05:48] LABS: Glucose, Whole Blood 158 mg/dL (60-115)
[2022-06-03 06:08] LABS: VBG Base Excess -4.3 mmol/L; VBG HCO3 18 mmol/L (22-26); VBG pCO2 27 mmHg; VBG pH 7.43 (7.32-7.43); VBG pO2 53 mmHg
[2022-06-03] MEDS: Insulin Lispro 100 UNIT/ML 3 ML VIAL SUBCUT ×3 (06:26→18:42)
[2022-06-03 06:33] LABS: Hematocrit 23.3 % (37.0-47.0); Hemoglobin 7.5 g/dl (12.0-16.0); Mean Corpuscular HGB Conc 32.2 g/dl (31.0-35.0); Mean Corpuscular Hemoglobin 29.3 pg (27.0-33.0); Mean Platelet Volume 11.5 fL (9.4-12.3); Platelet Count 240 X10*3/uL (160-400); Red Blood Count 2.56 X10*6/uL (4.20-5.50); Red Cell Distribution Width 16.2 % (11.0-16.0)
[2022-06-03 06:56] LABS: Lactic Acid 1.3 mmol/L (0.5-2.0)
[2022-06-03 07:06] LABS: Alanine Aminotransferase 12 U/L (0-31); Albumin Level 2.8 g/dL (3.5-5.0); Alkaline Phosphatase 52 U/L (39-117); Anion Gap 14 (12-20); Aspartate Amino Transferase 19 U/L (5-31); Bilirubin Total 1.3 mg/dL (0.0-1.0); Blood Urea Nitrogen 37 mg/dL (9-16); Calcium 7.7 mg/dL (8.4-10.2); Carbon Dioxide 19 mmol/L (22-29); Chloride 111 mmol/L (96-108); Creatinine Clr Calc Pharmacy 84.7; Estimated Glomerular Filt Rate > 60; Glucose Random 184 mg/dL (60-115); Phosphorus 4.5 mg/dL (2.7-4.5); Potassium 4.3 mmol/L (3.3-5.1); Sodium 140 mmol/L (135-145); Total Protein 4.6 g/dL (6.5-8.0)
[2022-06-03] MEDS: 0.9 % Sodium Chloride Flush 3 ML SYRINGE IVFLUSH ×3 (07:14→12:30)
[2022-06-03 07:53] LABS: Band Neutrophils Percent 7 % (3-5); Basophils Abs Manual 0.2 X10*3/uL (0.0-0.2); Basophils Percent Manual 2 % (0-2); Eosinophils Absolute Manual 0.2 X10*3/uL (0.0-0.4); Eosinophils Percent Manual 2 % (0-4); Lymphocytes Absolute Manual 1.2 X10*3/uL (1.2-4.9); Lymphocytes Percent Manual 10 % (20-40); Metamyelocytes Absolute 0.1 X10*3/uL; Metamyelocytes Percent 1 %; Monocytes Absolute Manual 0.1 X10*3/uL (0.1-1.2); Monocytes Percent Manual 1 % (2-11); Neutrophils Absolute Manual 10.1 X10*3/uL (2.0-8.3); Neutrophils Percent Manual 77 % (45-73)
[2022-06-03 07:55] LABS: Dohle Bodies PRESENT; Hypochromasia 1+ (5-14) /OIF; Polychromasia 1+ (0-2) /OIF; RBC Morphology NOTED; Spherocytes 1+ (0-2) /OIF
[2022-06-03 07:56] LABS: Large Platelet PRESENT; Platelet Estimate NORMAL (NORMAL); Platelet Morphology Comment NOTED; Toxic Granulation PRESENT
[2022-06-03] MEDS: Chlorhexidine Gluc Oral Rinse 15 ML MOUTHWASH BUCCAL ×3 (08:31→20:24)
--- NOTE | 2022-06-03 09:53 | P.PNGS_ITS ---
Subjective Subjective Date of Service: 06/05/22 Interval history: additional drains placed by IR patient still having some fever good urine output on ventilator Physical Exam Vital Signs: Vital Signs: Last Vital Signs Temp 101.1 F H 06/03/22 09:00 Pulse 110 H 06/03/22 09:00 Resp 23 H 06/03/22 09:00 BP 108/57 L 06/03/22 09:00 Pulse Ox 98 06/03/22 09:00 O2 Del Method 06/03/22 09:00 O2 Flow Rate 3 05/23/22 14:38 FiO2 30 06/03/22 09:00 Oxygen Flow Rate 60 05/30/22 18:00 BMI result Body Mass Index 42.9 Const: Other: on ventilator Resp: Other: intubated Cardio: Rate: tachycardic GI: Other: soft, stoma with good function, [address], mostly clear output, the only 1 with purulent dark output the 1 in the pelvis, Objective Data Active Medications Acetaminophen (Acetaminophen Supp 325 Mg Supp.Rect) 650 mg [place] Q4H PRN PRN Reason: Fever Last Admin: 06/02/22 23:59 Dose: 650 mg Documented By: MARIAJOSE Chlorhexidine Gluconate (Chlorhexidine Gluc Oral Rinse 15 Ml Mouthwash) 15 ml BUCCAL TID GAUDENCIO Last Admin: 06/03/22 08:31 Dose: 15 ml Documented By: KIM-JUMANA Norepinephrine Bitartrate (Levophed) 8 mg in 250 mls @ 0 mls/hr IVCONT .Q0M [facility]; Protocol Last Admin: 06/03/22 05:05 Dose: 0.02 mcg/kg/min, 2.99 mls/hr Documented By: MARIAJOSE Propofol (Diprivan) 1,000 mg in 100 mls @ 0 mls/hr IVCONT .Q0M [facility]; Protocol Last Admin: 06/03/22 05:34 Dose: 30 mcg/kg/min, 18.7 mls/hr Documented By: MARIAJOSE Metronidazole (Flagyl) 500 mg in 100 mls @ 100 mls/hr IV Q8H [facility] Last Infusion: 06/03/22 03:37 Dose: 0 mls/hr Documented By: MARIAJOSE Meropenem 1 gm/ Sodium (Chloride) 100 mls @ 200 mls/hr IV Q8H [facility] Last Infusion: 06/03/22 03:37 Dose: 0 mls/hr Documented By: MARIAJOSE Fentanyl (Sublimaze/Ns) 1,000 mcg in 100 mls @ 0 mls/hr IVCONT .Q0M [facility]; Protocol Last Admin: 06/03/22 01:43 Dose: 100 mcg/hr, 10 mls/hr Documented By: MARIAJOSE Magnesium Sulfate 10 meq/Potassium Phosphate 36 mmol/Calcium Gluconate 9.3 meq/Potassium Acetate 100 meq/Multivitamins 11 ml/ Trace Metals 1.1 ml/ Amino Acids/Dextrose 1,800 mls @ 75 mls/hr IV DAILY@1800 GAUDENCIO Stop: 06/03/22 17:59 Last Admin: 06/02/22 18:11 Dose: 75 mls/hr Documented By: KEIRA Norepinephrine Bitartrate (Levophed) 8 mg in 250 mls @ 0 mls/hr IVCONT .Q0M [facility]; Protocol Caspofungin 50 mg/ Sodium (Chloride) 250 mls @ 250 mls/hr IV ONCE ONE Stop: 06/03/22 09:59 Insulin Human Lispro (Insulin Lispro 100 Unit/Ml 3 Ml Vial) 0 unit SUBCUT Q6H [facility]; Protocol Last Admin: 06/03/22 06:26 Dose: 2 unit Documented By: MARIAJOSE Naloxone HCl (Naloxone Hcl 0.4 Mg/Ml Vial) 0.2 mg IVPUSH Q2M PRN PRN Reason: Excessive sedation or RR < 8 Pharmacy Consult (Consult Rx Perform Med Rec) 1 each MISCELLANE ONCE PRN PRN Reason: Consult order Sodium Chloride (0.9 % Sodium Chloride Flush 3 Ml Syringe) 3 ml IVFLUSH QSHIFT [facility] Last Admin: 06/03/22 07:14 Dose: 3 ml Documented By: ELI Labs CBC & Chem 7: 06/05/22 05:00 06/05/22 05:00 Labs: Laboratory Results - last 24 hr 06/02/22 06/02/22 06/02/22 11:59 18:10 23:51 MCV MCH MCHC RDW Plt Count MPV Immature Gran % (Auto) Neut % (Auto) Lymph % (Auto) [place] % (Auto) Eos % (Auto) Baso % (Auto) Lymph # (Auto) [place] # (Auto) Eos # (Auto) Baso # (Auto) Abs Immat Gran (auto) Absolute Neuts (auto) Absolute Nucleated RBC Nucleated RBC % (auto) Neutrophils % (Manual) Band Neutrophils % Lymphocytes % (Manual) Monocytes % (Manual) Eosinophils % (Manual) Basophils % (Manual) Metamyelocytes % Abs Neuts (Manual) Lymphocytes # (Manual) Monocytes # (Manual) Eosinophils # (Manual) Basophils # (Manual) Metamyelocytes # Toxic Granulation Dohle Bodies Platelet Estimate Large Platelets Plt Morphology Comment RBC Morphology Polychromasia Hypochromasia Spherocytes VBG pH VBG pCO2 VBG pO2 VBG HCO3 VBG O2 Saturation VBG Base Excess Anion Gap Estim Creat Clear Calc Estimated GFR POC Glucose 186 H 170 H 170 H Random Glucose Lactic Acid Calcium Phosphorus Magnesium Total Bilirubin AST ALT Alkaline Phosphatase Total Protein Albumin Blood Type Antibody Screen Crossmatch 06/03/22 06/03/22 06/03/22 05:44 06:00 06:00 MCV 91.0 MCH 29.3 MCHC 32.2 RDW 16.2 H Plt Count 240 MPV 11.5 Immature Gran % (Auto) Cancelled Neut % (Auto) Cancelled Lymph % (Auto) Cancelled [place] % (Auto) Cancelled Eos % (Auto) Cancelled Baso % (Auto) Cancelled Lymph # (Auto) Cancelled [place] # (Auto) Cancelled Eos # (Auto) Cancelled Baso # (Auto) Cancelled Abs Immat Gran (auto) Cancelled Absolute Neuts (auto) Cancelled Absolute Nucleated RBC 0.000 Nucleated RBC % (auto) 0.0 Neutrophils % (Manual) 77 H Band Neutrophils % 7 H Lymphocytes % (Manual) 10 L Monocytes % (Manual) 1 L Eosinophils % (Manual) 2 Basophils % (Manual) 2 Metamyelocytes % 1 Abs Neuts (Manual) 10.1 H Lymphocytes # (Manual) 1.2 Monocytes # (Manual) 0.1 Eosinophils # (Manual) 0.2 Basophils # (Manual) 0.2 Metamyelocytes # 0.1 Toxic Granulation PRESENT Dohle Bodies PRESENT Platelet Estimate NORMAL Large Platelets PRESENT Plt Morphology Comment NOTED RBC Morphology NOTED Polychromasia 1+ (0-2) Hypochromasia 1+ (5-14) Spherocytes 1+ (0-2) VBG pH VBG pCO2 VBG pO2 VBG HCO3 VBG O2 Saturation VBG Base Excess Anion Gap 14 Estim Creat Clear Calc 84.7 Estimated GFR > 60 POC Glucose 158 H Random Glucose 184 H Lactic Acid Calcium 7.7 L Phosphorus 4.5 Magnesium 2.0 Total Bilirubin 1.3 H AST 19 ALT 12 Alkaline Phosphatase 52 Total Protein 4.6 L Albumin 2.8 L Blood Type Antibody Screen Crossmatch 06/03/22 06/03/22 06/03/22 06:03 06:22 08:52 MCV MCH MCHC RDW Plt Count MPV Immature Gran % (Auto) Neut % (Auto) Lymph % (Auto) [place] % (Auto) Eos % (Auto) Baso % (Auto) Lymph # (Auto) [place] # (Auto) Eos # (Auto) Baso # (Auto) Abs Immat Gran (auto) Absolute Neuts (auto) Absolute Nucleated RBC Nucleated RBC % (auto) Neutrophils % (Manual) Band Neutrophils % Lymphocytes % (Manual) Monocytes % (Manual) Eosinophils % (Manual) Basophils % (Manual) Metamyelocytes % Abs Neuts (Manual) Lymphocytes # (Manual) Monocytes # (Manual) Eosinophils # (Manual) Basophils # (Manual) Metamyelocytes # Toxic Granulation Dohle Bodies Platelet Estimate Large Platelets Plt Morphology Comment RBC Morphology Polychromasia Hypochromasia Spherocytes VBG pH 7.43 VBG pCO2 27 VBG pO2 53 VBG HCO3 18 L VBG O2 Saturation 84.0 VBG Base Excess -4.3 Anion Gap Estim Creat Clear Calc Estimated GFR POC Glucose Random Glucose Lactic Acid 1.3 Calcium Phosphorus Magnesium Total Bilirubin AST ALT Alkaline Phosphatase Total Protein Albumin Blood Type B Positive Antibody Screen NEGATIVE Crossmatch See Detail Microbiology Microbiology Results: Microbiology 06/02/22 Unknown Gram Stain - Final Peritoneal Fluid 05/29/22 05:14 Blood Culture - Final Blood - Venous No growth after 5 days. 05/29/22 05:14 Blood Culture - Final Blood - Venous No growth after 5 days. 06/02/22 Unknown Gram Stain - Final Abscess Intra-abdominal Routine Culture - Final Anaerobic Culture - Final 06/02/22 Unknown Gram Stain - Final Abscess Intra-abdominal Routine Culture - Final 05/28/22 Unknown Gram Stain - Final Peritoneal Fluid Anaerobic Culture - Final Body Fluid Culture - Final Verónica dubliniensis Procedures Date of Service Date of Service: 06/03/22 Arterial Line Size (Gauge): 16 Progress Note: A&P Assessment and plan (1) Perforated viscus: Status: Acute Assessment and Plan: status post resection and colostomy additional drains placed still having some fever spikes stoma functioning well okay to do trickle feeds which will be protective against bacterial translocation kidney function stable central line to be changed 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
--- NOTE | 2022-06-03 10:22 | P.PCNCC_ITS ---
Procedures Date of Service Date of Service: 06/03/22 Arterial Line Size (Gauge): 16 Central Line Placement Right IJ: Central Line Comments: Due to patient receiving TPN and greater than 10-day-old central line and persistent fever by infection guidelines the old line discontinued new triple- lumen central venous pressure catheter was inserted after sterile preparation and draping and utilizing ultrasound guidance without complication Easy access to the right internal jugular vein passing retrograde with Seldinger technique a J tipped guidewire over which triple-lumen catheter was placed then sewn into place and sterilely dressed and chest x-ray showing no complication no pneumothorax no bleeding and line tip is in the proximal portion of the right atrium in good position Consent for Procedure: Elective - informed consent obtained Time out performed: Yes Sterile Technique Used: Yes Patient placed on monitor/pulse ox: Yes prep: mask, gown and gloves Central line prep: Chlorhexidine scrub Local anesthesia used: lidocaine 1% Ultrasound used for placement: Yes Central line lumen inserted: triple Post procedure: sutured in place, good blood return, all ports aspirated, flushed, capped and sterile dressing applied Post procedure x-ray: tip of catheter in good position and no pneumothorax seen Patient tolerated procedure: well and no complications Complications: none
[2022-06-03] MEDS: Caspofungin Acetate 50 MG in 0.9 % Sodium Chloride 250 ML 250 MG IV (10:28)
[2022-06-03 10:35] LABS: CDiff Gene PCR NEGATIVE (Negative)
--- NOTE | 2022-06-03 10:41 | PM.CCPN ---
Subjective Subjective Date of Service: 06/03/22 Interval History: 62-year-old female with history of Crohn's disease and following lower endoscopy a recent perforation with extensive stool soilage of the peritoneum who had washout procedure resection of the disease segment ostomy which is now draining for the 2nd day so there is some mandaeism of of bowel function but there is still significant residual volumes from the nasogastric tube although diminishing and with the recouping of 3rd space fluid indicating extensive repair of bowel peristalsis I think we can try trickle feeds which I am starting in the hopes of reducing and then the it eliminating the TPN if tolerated and for that and without complication I changed to a new central venous pressure catheter via a fresh site under sterile conditions on the right internal jugular vein and giving the TPN and everything through their but in addition the anemia is a little bit worse each day no active bleed is noted him sure this is marrow suppression related to her critical illness and 1 unit of red cells will be transfused in addition hopefully that will reduce some of the tachycardia but ventilatory requirements of the same and despite the negative base excess now 4.3 which looks like it is all hyperchloremic in nature we have a normal lactate of 1.3 Critical Care Time (minutes): 60 Physical Exam Vital Signs: Vital Signs: Last Vital Signs Temp 101.5 F H 06/03/22 10:19 Pulse 113 H 06/03/22 10:19 Resp 22 H 06/03/22 10:19 BP 112/58 L 06/03/22 10:19 Pulse Ox 96 06/03/22 10:00 O2 Del Method 06/03/22 10:00 O2 Flow Rate 3 05/23/22 14:38 FiO2 30 06/03/22 10:00 Oxygen Flow Rate 60 05/30/22 18:00 BMI result Body Mass Index 42.9 Exam is stable good bilateral carotid upstrokes well sedated and intubated same minutes ventilatory and FiO2 requirements Cardiac anatomy normal by bedside echo Chest with persistent bilateral infiltrates worse in the right upper lobe possible some upper lobe atelectasis as well Abdomen is benign Objective Data Labs CBC & Chem 7: 06/03/22 06:00 06/03/22 06:00 Labs: Laboratory Results - last 24 hr 06/02/22 06/02/22 06/02/22 11:59 18:10 23:51 WBC RBC Hgb Hct MCV MCH MCHC RDW Plt Count MPV Immature Gran % (Auto) Neut % (Auto) Lymph % (Auto) [place] % (Auto) Eos % (Auto) Baso % (Auto) Lymph # (Auto) [place] # (Auto) Eos # (Auto) Baso # (Auto) Abs Immat Gran (auto) Absolute Neuts (auto) Absolute Nucleated RBC Nucleated RBC % (auto) Neutrophils % (Manual) Band Neutrophils % Lymphocytes % (Manual) Monocytes % (Manual) Eosinophils % (Manual) Basophils % (Manual) Metamyelocytes % Abs Neuts (Manual) Lymphocytes # (Manual) Monocytes # (Manual) Eosinophils # (Manual) Basophils # (Manual) Metamyelocytes # Toxic Granulation Dohle Bodies Platelet Estimate Large Platelets Plt Morphology Comment RBC Morphology Polychromasia Hypochromasia Spherocytes VBG pH VBG pCO2 VBG pO2 VBG HCO3 VBG O2 Saturation VBG Base Excess Sodium Potassium Chloride Carbon Dioxide Anion Gap BUN Creatinine Estim Creat Clear Calc Estimated GFR POC Glucose 186 H 170 H 170 H Random Glucose Lactic Acid Calcium Phosphorus Magnesium Total Bilirubin AST ALT Alkaline Phosphatase Total Protein Albumin C. difficile Tox B Gene Blood Type Antibody Screen Crossmatch 06/03/22 06/03/22 06/03/22 05:44 06:00 06:00 WBC 12.0 H RBC 2.56 L Hgb 7.5 L Hct 23.3 L MCV 91.0 MCH 29.3 MCHC 32.2 RDW 16.2 H Plt Count 240 MPV 11.5 Immature Gran % (Auto) Cancelled Neut % (Auto) Cancelled Lymph % (Auto) Cancelled [place] % (Auto) Cancelled Eos % (Auto) Cancelled Baso % (Auto) Cancelled Lymph # (Auto) Cancelled [place] # (Auto) Cancelled Eos # (Auto) Cancelled Baso # (Auto) Cancelled Abs Immat Gran (auto) Cancelled Absolute Neuts (auto) Cancelled Absolute Nucleated RBC 0.000 Nucleated RBC % (auto) 0.0 Neutrophils % (Manual) 77 H Band Neutrophils % 7 H Lymphocytes % (Manual) 10 L Monocytes % (Manual) 1 L Eosinophils % (Manual) 2 Basophils % (Manual) 2 Metamyelocytes % 1 Abs Neuts (Manual) 10.1 H Lymphocytes # (Manual) 1.2 Monocytes # (Manual) 0.1 Eosinophils # (Manual) 0.2 Basophils # (Manual) 0.2 Metamyelocytes # 0.1 Toxic Granulation PRESENT Dohle Bodies PRESENT Platelet Estimate NORMAL Large Platelets PRESENT Plt Morphology Comment NOTED RBC Morphology NOTED Polychromasia 1+ (0-2) Hypochromasia 1+ (5-14) Spherocytes 1+ (0-2) VBG pH VBG pCO2 VBG pO2 VBG HCO3 VBG O2 Saturation VBG Base Excess Sodium 140 Potassium 4.3 Chloride 111 H Carbon Dioxide 19 L Anion Gap 14 BUN 37 H Creatinine 0.83 Estim Creat Clear Calc 84.7 Estimated GFR > 60 POC Glucose 158 H Random Glucose 184 H Lactic Acid Calcium 7.7 L Phosphorus 4.5 Magnesium 2.0 Total Bilirubin 1.3 H AST 19 ALT 12 Alkaline Phosphatase 52 Total Protein 4.6 L Albumin 2.8 L C. difficile Tox B Gene Blood Type Antibody Screen Crossmatch 06/03/22 06/03/22 06/03/22 06:03 06:22 08:26 WBC RBC Hgb Hct MCV MCH MCHC RDW Plt Count MPV Immature Gran % (Auto) Neut % (Auto) Lymph % (Auto) [place] % (Auto) Eos % (Auto) Baso % (Auto) Lymph # (Auto) [place] # (Auto) Eos # (Auto) Baso # (Auto) Abs Immat Gran (auto) Absolute Neuts (auto) Absolute Nucleated RBC Nucleated RBC % (auto) Neutrophils % (Manual) Band Neutrophils % Lymphocytes % (Manual) Monocytes % (Manual) Eosinophils % (Manual) Basophils % (Manual) Metamyelocytes % Abs Neuts (Manual) Lymphocytes # (Manual) Monocytes # (Manual) Eosinophils # (Manual) Basophils # (Manual) Metamyelocytes # Toxic Granulation Dohle Bodies Platelet Estimate Large Platelets Plt Morphology Comment RBC Morphology Polychromasia Hypochromasia Spherocytes VBG pH 7.43 VBG pCO2 27 VBG pO2 53 VBG HCO3 18 L VBG O2 Saturation 84.0 VBG Base Excess -4.3 Sodium Potassium Chloride Carbon Dioxide Anion Gap BUN Creatinine Estim Creat Clear Calc Estimated GFR POC Glucose Random Glucose Lactic Acid 1.3 Calcium Phosphorus Magnesium Total Bilirubin AST ALT Alkaline Phosphatase Total Protein Albumin C. difficile Tox B Gene NEGATIVE Blood Type Antibody Screen Crossmatch 06/03/22 08:52 WBC RBC Hgb Hct MCV MCH MCHC RDW Plt Count MPV Immature Gran % (Auto) Neut % (Auto) Lymph % (Auto) [place] % (Auto) Eos % (Auto) Baso % (Auto) Lymph # (Auto) [place] # (Auto) Eos # (Auto) Baso # (Auto) Abs Immat Gran (auto) Absolute Neuts (auto) Absolute Nucleated RBC Nucleated RBC % (auto) Neutrophils % (Manual) Band Neutrophils % Lymphocytes % (Manual) Monocytes % (Manual) Eosinophils % (Manual) Basophils % (Manual) Metamyelocytes % Abs Neuts (Manual) Lymphocytes # (Manual) Monocytes # (Manual) Eosinophils # (Manual) Basophils # (Manual) Metamyelocytes # Toxic Granulation Dohle Bodies Platelet Estimate Large Platelets Plt Morphology Comment RBC Morphology Polychromasia Hypochromasia Spherocytes VBG pH VBG pCO2 VBG pO2 VBG HCO3 VBG O2 Saturation VBG Base Excess Sodium Potassium Chloride Carbon Dioxide Anion Gap BUN Creatinine Estim Creat Clear Calc Estimated GFR POC Glucose Random Glucose Lactic Acid Calcium Phosphorus Magnesium Total Bilirubin AST ALT Alkaline Phosphatase Total Protein Albumin C. difficile Tox B Gene Blood Type B Positive Antibody Screen NEGATIVE Crossmatch See Detail Microbiology Microbiology Results: Microbiology 06/02/22 Unknown Peritoneal Fluid Gram Stain - Final 05/29/22 05:14 Blood - Venous Blood Culture - Final No growth after 5 days. 05/29/22 05:14 Blood - Venous Blood Culture - Final No growth after 5 days. 06/02/22 Unknown Abscess Intra-abdominal Gram Stain - Final 06/02/22 Unknown Abscess Intra-abdominal Routine Culture - Final 06/02/22 Unknown Abscess Intra-abdominal Anaerobic Culture - Final 06/02/22 Unknown Abscess Intra-abdominal Gram Stain - Final 06/02/22 Unknown Abscess Intra-abdominal Routine Culture - Final 05/28/22 Unknown Peritoneal Fluid Gram Stain - Final 05/28/22 Unknown Peritoneal Fluid Anaerobic Culture - Final 05/28/22 Unknown Peritoneal Fluid Body Fluid Culture - Final Verónica dubliniensis 05/29/22 15:05 Sputum - Suctioned Gram Stain - Final 05/29/22 15:05 Sputum - Suctioned Sputum Culture - Final Verónica dubliniensis 05/28/22 16:47 Sputum - Suctioned Gram Stain - Final 05/28/22 16:47 Sputum - Suctioned Sputum Culture - Final [place] albicans 05/29/22 15:14 Blood - Venous Blood Culture - Preliminary No growth after 48 hours. 05/29/22 15:13 Blood - Venous Blood Culture - Preliminary No growth after 48 hours. 05/23/22 Unknown Peritoneal Fluid Gram Stain - Final 05/23/22 Unknown Peritoneal Fluid Routine Culture - Final Escherichia coli 05/23/22 Unknown Peritoneal Fluid Anaerobic Culture - Final Clostridium perfringens Bacteroides thetaiotaomicron 05/19/22 08:49 Blood - Venous Blood Culture - Final No growth after 5 days. 05/19/22 08:49 Blood - Venous Blood Culture - Final No growth after 5 days. Progress Note: A&P Assessment and plan (1) Status post colostomy: Status: Acute (2) Ileus following gastrointestinal surgery: Status: Acute (3) Thrombocytopenia: Status: Acute (4) Anemia: Status: Acute (5) Hypernatremia: Status: Acute (6) Septic shock: Status: Acute (7) Shock: Status: Acute (8) Perforated viscus: Status: Acute (9) Hypokalemia: Status: Acute (10) Constipation: Status: Acute (11) Fibromyalgia: Status: Acute (12) Exacerbation of Crohn's disease: Status: Acute (13) Colitis: Status: Acute (14) Acute proctitis: Status: Acute (15) Viral illness: Status: Acute (16) Hives: Status: Acute Plan So again cultures are pending the old line is being removed as potentially can contaminated and fresh line with continue TPN until enteral feedings are tolerated cultures are pending and other dose of caspofungin today Quality Stroke Does the patient have a stroke diagnosis?: No VTE Prior VTE?: No VTE Risk Level:: Medical - moderate - high VTE Device Contraindication: N/A - Device Ordered VTE Drug Contraindication: N/A - Med Ordered
[2022-06-03 10:49] LABS: Venous Blood Gas Refer to POC result
[2022-06-03] MEDS: fentaNYL citrate/NS 1,000 MCG/100 ML PLAST..BAG 5 MCG IVCONT ×2 (11:35→22:28)
[2022-06-03 12:26] LABS: Glucose, Whole Blood 168 mg/dL (60-115)
[2022-06-03] MEDS: levoFLOXacin/D5W 500 MG/100 ML PIGGYBACK 100 MG IV (17:59)
[2022-06-03 18:34] LABS: Glucose, Whole Blood 182 mg/dL (60-115)
[2022-06-03] MEDS: Acetaminophen Oral Liquid 650 MG/20.3 ML SOLUTION PO (19:28)
[2022-06-03] MEDS: propofoL 1,000 MG/100 ML VIAL 12.47 MG IVCONT (20:25)
[2022-06-04] VITALS (40 sets, daily range): BP systolic 91–176; BP diastolic 43–96; PULSE 91–132; RESP 14–35; TEMP 34–39.3; O2SAT 92–100; BMI 43.1
[2022-06-04] LABS: Glucose, Whole Blood 189 mg/dL (60-115)
[2022-06-04] MEDS: 0.9 % Sodium Chloride Flush 3 ML SYRINGE IVFLUSH ×3 (00:38→14:54)
[2022-06-04] MEDS: Insulin Lispro 100 UNIT/ML 3 ML VIAL SUBCUT ×4 (00:41→18:25)
[2022-06-04] MEDS: propofoL 1,000 MG/100 ML VIAL 12.47 MG IVCONT ×2 (01:19→13:06)
[2022-06-04] MEDS: metroNIDAZOLE/NS 500 MG/100 ML PIGGYBACK 100 MG IV ×3 (02:32→18:31)
[2022-06-04] MEDS: fentaNYL citrate/NS 1,000 MCG/100 ML PLAST..BAG 20 MCG IVCONT ×2 (04:15→08:52)
--- NOTE | 2022-06-04 04:34 | PC.NURSE ---
Addendum entered by Justice Pardo RN 06/04/22 06:48: CURRENT TEMP=98.9 HR 94 ...NOHEMI DRAIN OUTPUT 10PM-6AM: RIGHT UPPER= 240ml RIGHT LOWER= 15ml LEFT UPPER= 10ml LEFT LOWER=20ml LEFT BUTTOCK=10ml Original Note: CARE ASSUMED 23:15..REMAINS TUBED/VENTED....AC/VC MODE....FEBRILE OVERNIGHT...ESOPHAGEAL PROBE T-KUD=052.2...COOLING BLANKET RE-APPLIED...PREVIOUSLY OFF 3-11 SHIFT...PATIENT SEDATE BUT SHIVERING...RR 30'S...GRIMACING...SINUS TACH HR 126-128...FENTANYL TITRATED FROM 100---200 MCG/HR AND PROPOFOL FROM 30--50 MCG/KG/MIN TO OBTAIN VENT SYNCHRONY...ESOPHAGEAL PROBE 101.4...ORAL TEMP 102.8...COOLING BLANKET MAINTAINED..HR CURRENTLY DOWN TO 116 AND RR 22-24...TO TREND TEMPERATURE/VITAL SIGN RESPONSE
[2022-06-04 05:07] LABS: VBG HCO3 18 mmol/L (22-26); VBG pCO2 30 mmHg; VBG pH 7.38 (7.32-7.43); VBG pO2 40 mmHg
[2022-06-04] MEDS: propofoL 1,000 MG/100 ML VIAL 31.17 MG IVCONT ×2 (05:21→08:20)
[2022-06-04 05:26] LABS: Hematocrit 29.2 % (37.0-47.0); Hemoglobin 9.2 g/dl (12.0-16.0); Mean Corpuscular HGB Conc 31.5 g/dl (31.0-35.0); Mean Corpuscular Hemoglobin 28.5 pg (27.0-33.0); Mean Corpuscular Volume 90.4 fL (80.0-98.0); Mean Platelet Volume 11.7 fL (9.4-12.3); Platelet Count 322 X10*3/uL (160-400); Red Blood Count 3.23 X10*6/uL (4.20-5.50); Red Cell Distribution Width 15.9 % (11.0-16.0); White Blood Count 19.3 X10*3/uL (4.8-10.8)
[2022-06-04 05:39] LABS: Alanine Aminotransferase 13 U/L (0-31); Albumin Level 2.5 g/dL (3.5-5.0); Alkaline Phosphatase 67 U/L (39-117); Anion Gap 14 (12-20); Aspartate Amino Transferase 20 U/L (5-31); Bilirubin Total 1.5 mg/dL (0.0-1.0); Blood Urea Nitrogen 37 mg/dL (9-16); Calcium 7.5 mg/dL (8.4-10.2); Carbon Dioxide 20 mmol/L (22-29); Chloride 110 mmol/L (96-108); Estimated Glomerular Filt Rate > 60; Glucose Random 221 mg/dL (60-115); Magnesium 1.9 mg/dL (1.6-2.6); Phosphorus 4.7 mg/dL (2.7-4.5); Potassium 4.9 mmol/L (3.3-5.1); Sodium 139 mmol/L (135-145); Total Protein 4.6 g/dL (6.5-8.0)
[2022-06-04 05:52] LABS: Band Neutrophils Percent 10 % (3-5); Basophils Abs Manual 0.2 X10*3/uL (0.0-0.2); Basophils Percent Manual 1 % (0-2); Eosinophils Absolute Manual 0.8 X10*3/uL (0.0-0.4); Eosinophils Percent Manual 4 % (0-4); Lymphocytes Absolute Manual 1.9 X10*3/uL (1.2-4.9); Lymphocytes Percent Manual 10 % (20-40); Monocytes Absolute Manual 0.8 X10*3/uL (0.1-1.2); Monocytes Percent Manual 4 % (2-11); Neutrophils Absolute Manual 15.6 X10*3/uL (2.0-8.3); Neutrophils Percent Manual 71 % (45-73); RBC Morphology NOTED
[2022-06-04 05:53] LABS: Burr Cells 1+ (0-2) /OIF; Dohle Bodies PRESENT; Large Platelet PRESENT; Macrocytosis 1+ (5-14) /OIF; Microcytosis 1+ (5-14) /OIF; Platelet Estimate SLIGHTLY INCREASED (NORMAL); Platelet Morphology Comment NORMAL; Polychromasia 1+ (0-2) /OIF; Smudge Cells PRESENT; Toxic Granulation PRESENT
[2022-06-04 05:54] LABS: Glucose, Whole Blood 199 mg/dL (60-115)
[2022-06-04 05:54] LABS: Spherocytes 1+ (0-2) /OIF
[2022-06-04 06:03] LABS: Venous Blood Gas Refer to POC result
[2022-06-04] MEDS: Chlorhexidine Gluc Oral Rinse 15 ML MOUTHWASH BUCCAL ×3 (07:41→19:54)
--- NOTE | 2022-06-04 09:09 | PM.PNGS ---
Subjective Subjective Date of Service: 06/05/22 Interval history: No events reported by nursing staff Tolerating trickle feeds Stoma functioning Drains in place Good urine output Remains on vent Physical Exam Vital Signs: Vital Signs: Last Vital Signs Temp 99.5 F 06/04/22 09:00 Pulse 96 06/04/22 09:00 Resp 17 06/04/22 09:00 BP 101/50 L 06/04/22 09:00 Pulse Ox 95 06/04/22 09:00 O2 Del Method 06/04/22 09:00 O2 Flow Rate 3 05/23/22 14:38 FiO2 30 06/04/22 09:00 Oxygen Flow Rate 60 05/30/22 18:00 BMI result Body Mass Index 43.1 Const: Other: On ventilator Resp: Other: On ventilator Cardio: Rhythm: regular rhythm GI: Other: Soft, stoma with output drains in place x5 dressings dry Objective Data Active Medications Acetaminophen (Acetaminophen Oral Liquid 650 Mg/20.3 Ml Solution) 650 mg PO Q6H PRN PRN Reason: Fever Last Admin: 06/03/22 19:28 Dose: 650 mg Documented By: YONATHAN Chlorhexidine Gluconate (Chlorhexidine Gluc Oral Rinse 15 Ml Mouthwash) 15 ml BUCCAL TID GAUDENCIO Last Admin: 06/04/22 07:41 Dose: 15 ml Documented By: DONTRELL Norepinephrine Bitartrate (Levophed) 8 mg in 250 mls @ 0 mls/hr IVCONT .Q0M GAUDENCIO; Protocol Last Titration: 06/04/22 08:54 Dose: 0.16 mcg/kg/min, 23.94 mls/hr Documented By: DONTRELL Propofol (Diprivan) 1,000 mg in 100 mls @ 0 mls/hr IVCONT .Q0M GAUDENCIO; Protocol Last Admin: 06/04/22 08:20 Dose: 50 mcg/kg/min, 31.17 mls/hr Documented By: DONTRELL Metronidazole (Flagyl) 500 mg in 100 mls @ 100 mls/hr IV Q8H GAUDENCIO Last Infusion: 06/04/22 03:49 Dose: 0 mls/hr Documented By: LUIS Meropenem 1 gm/ Sodium (Chloride) 100 mls @ 200 mls/hr IV Q8H [facility] Last Infusion: 06/04/22 02:18 Dose: 0 mls/hr Documented By: LUIS Fentanyl (Sublimaze/Ns) 1,000 mcg in 100 mls @ 0 mls/hr IVCONT .Q0M [facility]; Protocol Last Admin: 06/04/22 08:52 Dose: 200 mcg/hr, 20 mls/hr Documented By: DONTRELL Norepinephrine Bitartrate (Levophed) 8 mg in 250 mls @ 0 mls/hr IVCONT .Q0M [facility]; Protocol Magnesium Sulfate 10 meq/Potassium Phosphate 36 mmol/Calcium Gluconate 9.3 meq/Potassium Acetate 100 meq/Multivitamins 11 ml/ Trace Metals 1.1 ml/ Amino Acids/Dextrose 1,800 mls @ 75 mls/hr IV DAILY@1800 [facility] Stop: 06/04/22 17:59 Last Admin: 06/03/22 18:07 Dose: 75 mls/hr Documented By: LAURIE Insulin Human Lispro (Insulin Lispro 100 Unit/Ml 3 Ml Vial) 0 unit SUBCUT Q6H [facility]; Protocol Last Admin: 06/04/22 05:56 Dose: 2 unit Documented By: LUIS Naloxone HCl (Naloxone Hcl 0.4 Mg/Ml Vial) 0.2 mg IVPUSH Q2M PRN PRN Reason: Excessive sedation or RR < 8 Nystatin (Nystatin Powder 15 Gm Bottle) 1 appl TOPICAL BID [facility]; Protocol Pharmacy Consult (Consult Rx Perform Med Rec) 1 each MISCELLANE ONCE PRN PRN Reason: Consult order Sodium Chloride (0.9 % Sodium Chloride Flush 3 Ml Syringe) 3 ml IVFLUSH QSHIFT [facility] Last Admin: 06/04/22 07:42 Dose: 3 ml Documented By: DONTRELL Labs CBC & Chem 7: 06/05/22 05:00 06/05/22 05:00 Labs: Laboratory Results - last 24 hr 06/03/22 06/03/22 06/03/22 08:26 08:52 12:22 MCV MCH MCHC RDW Plt Count MPV Immature Gran % (Auto) Neut % (Auto) Lymph % (Auto) [place] % (Auto) Eos % (Auto) Baso % (Auto) Lymph # (Auto) [place] # (Auto) Eos # (Auto) Baso # (Auto) Abs Immat Gran (auto) Absolute Neuts (auto) Absolute Nucleated RBC Nucleated RBC % (auto) Neutrophils % (Manual) Band Neutrophils % Lymphocytes % (Manual) Monocytes % (Manual) Eosinophils % (Manual) Basophils % (Manual) Abs Neuts (Manual) Lymphocytes # (Manual) Monocytes # (Manual) Eosinophils # (Manual) Basophils # (Manual) [place] Cells Toxic Granulation Dohle Bodies Platelet Estimate Large Platelets Plt Morphology Comment RBC Morphology Polychromasia Microcytosis Macrocytosis Spherocytes [place] Cells VBG pH VBG pCO2 VBG pO2 VBG HCO3 VBG O2 Saturation VBG Base Excess Anion Gap Estim Creat Clear Calc Estimated GFR POC Glucose 168 H Random Glucose Calcium Phosphorus Magnesium Total Bilirubin AST ALT Alkaline Phosphatase Total Protein Albumin C. difficile Tox B Gene NEGATIVE Blood Type B Positive Antibody Screen NEGATIVE Crossmatch See Detail 06/03/22 06/03/22 06/04/22 18:31 23:56 05:00 MCV 90.4 MCH 28.5 MCHC 31.5 RDW 15.9 Plt Count 322 D MPV 11.7 Immature Gran % (Auto) Cancelled Neut % (Auto) Cancelled Lymph % (Auto) Cancelled [place] % (Auto) Cancelled Eos % (Auto) Cancelled Baso % (Auto) Cancelled Lymph # (Auto) Cancelled [place] # (Auto) Cancelled Eos # (Auto) Cancelled Baso # (Auto) Cancelled Abs Immat Gran (auto) Cancelled Absolute Neuts (auto) Cancelled Absolute Nucleated RBC 0.000 Nucleated RBC % (auto) 0.0 Neutrophils % (Manual) 71 Band Neutrophils % 10 H Lymphocytes % (Manual) 10 L Monocytes % (Manual) 4 Eosinophils % (Manual) 4 Basophils % (Manual) 1 Abs Neuts (Manual) 15.6 H Lymphocytes # (Manual) 1.9 Monocytes # (Manual) 0.8 Eosinophils # (Manual) 0.8 H Basophils # (Manual) 0.2 Smudge Cells PRESENT Toxic Granulation PRESENT Dohle Bodies PRESENT Platelet Estimate SLIGHTLY INCREASED Large Platelets PRESENT Plt Morphology Comment NORMAL RBC Morphology NOTED Polychromasia 1+ (0-2) Microcytosis 1+ (5-14) Macrocytosis 1+ (5-14) Spherocytes 1+ (0-2) [place] Cells 1+ (0-2) VBG pH VBG pCO2 VBG pO2 VBG HCO3 VBG O2 Saturation VBG Base Excess Anion Gap Estim Creat Clear Calc Estimated GFR POC Glucose 182 H 189 H Random Glucose Calcium Phosphorus Magnesium Total Bilirubin AST ALT Alkaline Phosphatase Total Protein Albumin C. difficile Tox B Gene Blood Type Antibody Screen Crossmatch 06/04/22 06/04/22 06/04/22 05:00 05:01 05:51 MCV MCH MCHC RDW Plt Count MPV Immature Gran % (Auto) Neut % (Auto) Lymph % (Auto) [place] % (Auto) Eos % (Auto) Baso % (Auto) Lymph # (Auto) [place] # (Auto) Eos # (Auto) Baso # (Auto) Abs Immat Gran (auto) Absolute Neuts (auto) Absolute Nucleated RBC Nucleated RBC % (auto) Neutrophils % (Manual) Band Neutrophils % Lymphocytes % (Manual) Monocytes % (Manual) Eosinophils % (Manual) Basophils % (Manual) Abs Neuts (Manual) Lymphocytes # (Manual) Monocytes # (Manual) Eosinophils # (Manual) Basophils # (Manual) [place] Cells Toxic Granulation Dohle Bodies Platelet Estimate Large Platelets Plt Morphology Comment RBC Morphology Polychromasia Microcytosis Macrocytosis Spherocytes [place] Cells VBG pH 7.38 VBG pCO2 30 VBG pO2 40 VBG HCO3 18 L VBG O2 Saturation 66.0 VBG Base Excess -6.0 Anion Gap 14 Estim Creat Clear Calc 94.0 Estimated GFR > 60 POC Glucose 199 H Random Glucose 221 H Calcium 7.5 L Phosphorus 4.7 H Magnesium 1.9 Total Bilirubin 1.5 H AST 20 ALT 13 Alkaline Phosphatase 67 D Total Protein 4.6 L Albumin 2.5 L C. difficile Tox B Gene Blood Type Antibody Screen Crossmatch Microbiology Microbiology Results: Microbiology 06/03/22 06:15 Blood Culture - Preliminary Blood - Venous No growth after 24 hours. 06/03/22 06:15 Blood Culture - Preliminary Blood - Venous No growth after 24 hours. 05/29/22 15:14 Blood Culture - Final Blood - Venous No growth after 5 days. 05/29/22 15:13 Blood Culture - Final Blood - Venous No growth after 5 days. 06/02/22 Unknown Gram Stain - Final Peritoneal Fluid Routine Culture - Preliminary No growth to date. Anaerobic Culture - Preliminary No growth to date. 05/29/22 05:14 Blood Culture - Final Blood - Venous No growth after 5 days. 05/29/22 05:14 Blood Culture - Final Blood - Venous No growth after 5 days. 06/02/22 Unknown Gram Stain - Final Abscess Intra-abdominal Routine Culture - Final Anaerobic Culture - Final 06/02/22 Unknown Gram Stain - Final Abscess Intra-abdominal Routine Culture - Final Procedures Date of Service Date of Service: 06/05/22 Arterial Line Size (Gauge): 16 Progress Note: A&P Assessment and plan (1) Status post colostomy: Status: Acute Assessment and Plan: GI tract seems to be functioning Okay to slowly advance feed rate Drains in place WBC elevated this morning - uncertain focus Central line changed yesterday Abdomen otherwise appears benign and much less distended ICU care Time Spent With Patient Time: Total time spent is greater than 50% in coordination of care (as documented) at patient's floor/unit and/or counseling patient: Quality Stroke Does the patient have a stroke diagnosis?: No VTE Prior VTE?: No VTE Risk Level:: Medical - moderate - high VTE Device Contraindication: N/A - Device Ordered VTE Drug Contraindication: N/A - Med Ordered
[2022-06-04] MEDS: Nystatin Powder 15 GM BOTTLE 1 APPL TOPICAL ×2 (11:19→20:14)
[2022-06-04] MEDS: Acetaminophen Oral Liquid 650 MG/20.3 ML SOLUTION PO (11:41)
[2022-06-04 11:54] LABS: Glucose, Whole Blood 225 mg/dL (60-115)
--- NOTE | 2022-06-04 14:09 | P.PNCC_ITS ---
Subjective Subjective Date of Service: 06/04/22 Interval History: 62-year-old female with background of Crohn's disease came in for lower endoscopy at perforation with extensive stool soilage of the peritoneum requiring emergent surgery extensive washout resection of the area of perforati on and a diverting ostomy and this is about 12 days postop still intubated with a significant infiltrate predominantly right upper lobe evidence there of consolidation possible volume loss and noted but definitely diminished bilateral pleural effusions compared to previous x-rays and she is down to about a 10 L minutes ventilation and FiO2 of 30% she awakens with her sedation holidays but she continues to spike fevers up to 103 in becomes very unstable with marked tachypnea tachycardia hypotension and we just recently replaced the Levophed and she has got a multiple surgical multiple drains by a in Interventional Radiology and the 1st 2 drains drained very large walled-off pockets of fecal it material and there has been some indication of at least partial resumption of peristalsis with some stool noted in the ostomy bag but more importantly she clearly started to diurese meaning she was recouping 3rd spaced fluid which was predominantly in the abdomen Critical Care Time (minutes): 60 Physical Exam Vital Signs: Vital Signs: Last Vital Signs Temp 101.7 F H 06/04/22 12:57 Pulse 132 H 06/04/22 13:00 Resp 28 H 06/04/22 13:00 BP 114/61 06/04/22 13:00 Pulse Ox 94 06/04/22 13:00 O2 Del Method 06/04/22 13:00 O2 Flow Rate 3 05/23/22 14:38 FiO2 30 06/04/22 13:00 Oxygen Flow Rate 60 05/30/22 18:00 BMI result Body Mass Index 43.1 She awakens with some eye contact with family so cognitive function is pres erved and nonfocal neurologically Bedside echo with normal LV function Lungs as described above Abdomen is definitely softer with no palpable organomegaly Skin with a anasarca but no acrocyanosis and no lesions Objective Data Labs CBC & Chem 7: 06/04/22 05:00 06/04/22 05:00 Labs: Laboratory Results - last 24 hr 06/03/22 06/03/22 06/04/22 18:31 23:56 05:00 WBC 19.3 H RBC 3.23 L D Hgb 9.2 L D Hct 29.2 L D MCV 90.4 MCH 28.5 MCHC 31.5 RDW 15.9 Plt Count 322 D MPV 11.7 Immature Gran % (Auto) Cancelled Neut % (Auto) Cancelled Lymph % (Auto) Cancelled Emery % (Auto) Cancelled Eos % (Auto) Cancelled Baso % (Auto) Cancelled Lymph # (Auto) Cancelled Emery # (Auto) Cancelled Eos # (Auto) Cancelled Baso # (Auto) Cancelled Abs Immat Gran (auto) Cancelled Absolute Neuts (auto) Cancelled Absolute Nucleated RBC 0.000 Nucleated RBC % (auto) 0.0 Neutrophils % (Manual) 71 Band Neutrophils % 10 H Lymphocytes % (Manual) 10 L Monocytes % (Manual) 4 Eosinophils % (Manual) 4 Basophils % (Manual) 1 Abs Neuts (Manual) 15.6 H Lymphocytes # (Manual) 1.9 Monocytes # (Manual) 0.8 Eosinophils # (Manual) 0.8 H Basophils # (Manual) 0.2 Smudge Cells PRESENT Toxic Granulation PRESENT Dohle Bodies PRESENT Platelet Estimate SLIGHTLY INCREASED Large Platelets PRESENT Plt Morphology Comment NORMAL RBC Morphology NOTED Polychromasia 1+ (0-2) Microcytosis 1+ (5-14) Macrocytosis 1+ (5-14) Spherocytes 1+ (0-2) Susan Cells 1+ (0-2) VBG pH VBG pCO2 VBG pO2 VBG HCO3 VBG O2 Saturation VBG Base Excess Sodium Potassium Chloride Carbon Dioxide Anion Gap BUN Creatinine Estim Creat Clear Calc Estimated GFR POC Glucose 182 H 189 H Random Glucose Calcium Phosphorus Magnesium Total Bilirubin AST ALT Alkaline Phosphatase Total Protein Albumin 06/04/22 06/04/22 06/04/22 05:00 05:01 05:51 WBC RBC Hgb Hct MCV MCH MCHC RDW Plt Count MPV Immature Gran % (Auto) Neut % (Auto) Lymph % (Auto) Emery % (Auto) Eos % (Auto) Baso % (Auto) Lymph # (Auto) Emery # (Auto) Eos # (Auto) Baso # (Auto) Abs Immat Gran (auto) Absolute Neuts (auto) Absolute Nucleated RBC Nucleated RBC % (auto) Neutrophils % (Manual) Band Neutrophils % Lymphocytes % (Manual) Monocytes % (Manual) Eosinophils % (Manual) Basophils % (Manual) Abs Neuts (Manual) Lymphocytes # (Manual) Monocytes # (Manual) Eosinophils # (Manual) Basophils # (Manual) Smudge Cells Toxic Granulation Dohle Bodies Platelet Estimate Large Platelets Plt Morphology Comment RBC Morphology Polychromasia Microcytosis Macrocytosis Spherocytes Susan Cells VBG pH 7.38 VBG pCO2 30 VBG pO2 40 VBG HCO3 18 L VBG O2 Saturation 66.0 VBG Base Excess -6.0 Sodium 139 Potassium 4.9 Chloride 110 H Carbon Dioxide 20 L Anion Gap 14 BUN 37 H Creatinine 0.75 Estim Creat Clear Calc 94.0 Estimated GFR > 60 POC Glucose 199 H Random Glucose 221 H Calcium 7.5 L Phosphorus 4.7 H Magnesium 1.9 Total Bilirubin 1.5 H AST 20 ALT 13 Alkaline Phosphatase 67 D Total Protein 4.6 L Albumin 2.5 L 06/04/22 11:51 WBC RBC Hgb Hct MCV MCH MCHC RDW Plt Count MPV Immature Gran % (Auto) Neut % (Auto) Lymph % (Auto) Emery % (Auto) Eos % (Auto) Baso % (Auto) Lymph # (Auto) [place]y # (Auto) Eos # (Auto) Baso # (Auto) Abs Immat Gran (auto) Absolute Neuts (auto) Absolute Nucleated RBC Nucleated RBC % (auto) Neutrophils % (Manual) Band Neutrophils % Lymphocytes % (Manual) Monocytes % (Manual) Eosinophils % (Manual) Basophils % (Manual) Abs Neuts (Manual) Lymphocytes # (Manual) Monocytes # (Manual) Eosinophils # (Manual) Basophils # (Manual) Smudge Cells Toxic Granulation Dohle Bodies Platelet Estimate Large Platelets Plt Morphology Comment RBC Morphology Polychromasia Microcytosis Macrocytosis Spherocytes Rudolph Cells VBG pH VBG pCO2 VBG pO2 VBG HCO3 VBG O2 Saturation VBG Base Excess Sodium Potassium Chloride Carbon Dioxide Anion Gap BUN Creatinine Estim Creat Clear Calc Estimated GFR POC Glucose 225 H Random Glucose Calcium Phosphorus Magnesium Total Bilirubin AST ALT Alkaline Phosphatase Total Protein Albumin Microbiology Microbiology Results: Microbiology 06/02/22 Unknown Peritoneal Fluid Gram Stain - Final 06/02/22 Unknown Peritoneal Fluid Routine Culture - Preliminary Yeast 06/02/22 Unknown Peritoneal Fluid Anaerobic Culture - Preliminary Culture in progress. 06/03/22 06:15 Blood - Venous Blood Culture - Preliminary No growth after 24 hours. 06/03/22 06:15 Blood - Venous Blood Culture - Preliminary No growth after 24 hours. 05/29/22 15:14 Blood - Venous Blood Culture - Final No growth after 5 days. 05/29/22 15:13 Blood - Venous Blood Culture - Final No growth after 5 days. 05/29/22 05:14 Blood - Venous Blood Culture - Final No growth after 5 days. 05/29/22 05:14 Blood - Venous Blood Culture - Final No growth after 5 days. 06/02/22 Unknown Abscess Intra-abdominal Gram Stain - Final 06/02/22 Unknown Abscess Intra-abdominal Routine Culture - Final 06/02/22 Unknown Abscess Intra-abdominal Anaerobic Culture - Final 06/02/22 Unknown Abscess Intra-abdominal Gram Stain - Final 06/02/22 Unknown Abscess Intra-abdominal Routine Culture - Final 05/28/22 Unknown Peritoneal Fluid Gram Stain - Final 05/28/22 Unknown Peritoneal Fluid Anaerobic Culture - Final 05/28/22 Unknown Peritoneal Fluid Body Fluid Culture - Final Verónica dubliniensis 05/29/22 15:05 Sputum - Suctioned Gram Stain - Final 05/29/22 15:05 Sputum - Suctioned Sputum Culture - Final Verónica dubliniensis 05/28/22 16:47 Sputum - Suctioned Gram Stain - Final 05/28/22 16:47 Sputum - Suctioned Sputum Culture - Final Verónica albicans 05/23/22 Unknown Peritoneal Fluid Gram Stain - Final 05/23/22 Unknown Peritoneal Fluid Routine Culture - Final Escherichia coli 05/23/22 Unknown Peritoneal Fluid Anaerobic Culture - Final Clostridium perfringens Bacteroides thetaiotaomicron 05/19/22 08:49 Blood - Venous Blood Culture - Final No growth after 5 days. 05/19/22 08:49 Blood - Venous Blood Culture - Final No growth after 5 days. Progress Note: A&P Assessment and plan (1) Status post colostomy: Status: Acute (2) Ileus following gastrointestinal surgery: Status: Acute (3) Thrombocytopenia: Status: Acute (4) Anemia: Status: Acute (5) Hypernatremia: Status: Acute (6) Septic shock: Status: Acute (7) Shock: Status: Acute (8) Perforated viscus: Status: Acute (9) Hypokalemia: Status: Acute (10) Constipation: Status: Acute (11) Fibromyalgia: Status: Acute (12) Exacerbation of Crohn's disease: Status: Acute (13) Colitis: Status: Acute (14) Acute proctitis: Status: Acute (15) Viral illness: Status: Acute (16) Hives: Status: Acute Plan So at this point there are fungal cultures that are pending from the blood we have grown out yeast and thus far in the sputum and from the abdominal drain and the organism is Verónica dubliensis but we do not have a sensitivity profile The original cultures it grew E coli and Clostridium and Bacteroides and for that we are covering predominantly with meropenem On the IA discontinued the left subclavian central line and switched to a brand new right internal jugular line and change all the and tubing in caps etc. for the TPN and we have started trickle feeds with 10 cc/hour because of diminishing NG aspirate volume Quality Stroke Does the patient have a stroke diagnosis?: No VTE Prior VTE?: No VTE Risk Level:: Medical - moderate - high VTE Device Contraindication: N/A - Device Ordered VTE Drug Contraindication: N/A - Med Ordered
[2022-06-04] MEDS: levoFLOXacin/D5W 500 MG/100 ML PIGGYBACK 100 MG IV (14:53)
[2022-06-04] MEDS: Voriconazole 200 MG in 0.9 % Sodium Chloride 100 ML 50 MG IV (15:03)
[2022-06-04] MEDS: propofoL 1,000 MG/100 ML VIAL 18.7 MG IVCONT ×2 (18:01→23:14)
[2022-06-04 18:03] LABS: Glucose, Whole Blood 256 mg/dL (60-115)
--- NOTE | 2022-06-04 19:14 | PC.NURSE ---
SEDATION VACATION STARTED AT 1130, FAILED, SEDATION VACATION ENDED AT 1258. FAMILY BEDSIDE AND UPDATED ON CURRENT HEALTH STATUS. TEMP INCREASED TO MAX OF 102.7, PT POSITIONED ON COOLING BLANKET. BATHED, REPOSITIONED Q2HR, ORAL CARE PROVIDED.
[2022-06-04] MEDS: fentaNYL citrate/NS 1,000 MCG/100 ML PLAST..BAG 7.5 MCG IVCONT (19:54)
[2022-06-05] VITALS (32 sets, daily range): BP systolic 86–143; BP diastolic 43–72; PULSE 112–141; RESP 17–31; TEMP 34.7–39.2; O2SAT 94–100; BMI 43.2
[2022-06-05 00:18] LABS: Glucose, Whole Blood 212 mg/dL (60-115)
[2022-06-05] MEDS: Insulin Lispro 100 UNIT/ML 3 ML VIAL SUBCUT ×4 (00:36→18:05)
[2022-06-05] MEDS: 0.9 % Sodium Chloride Flush 3 ML SYRINGE IVFLUSH ×4 (00:37→20:08)
[2022-06-05] MEDS: Acetaminophen Supp 650 MG SUPP.RECT PR (00:38)
[2022-06-05] MEDS: metroNIDAZOLE/NS 500 MG/100 ML PIGGYBACK 100 MG IV ×3 (01:53→18:50)
[2022-06-05] MEDS: Voriconazole 200 MG in 0.9 % Sodium Chloride 100 ML 50 MG IV (03:21)
[2022-06-05] MEDS: propofoL 1,000 MG/100 ML VIAL 18.7 MG IVCONT ×3 (04:35→22:47)
[2022-06-05 05:10] LABS: VBG Base Excess -5.4 mmol/L; VBG HCO3 18 mmol/L (22-26); VBG pCO2 31 mmHg; VBG pH 7.38 (7.32-7.43); VBG pO2 39 mmHg
[2022-06-05 05:12] LABS: Venous Blood Gas Refer to POC result
[2022-06-05] MEDS: fentaNYL citrate/NS 1,000 MCG/100 ML PLAST..BAG 7.5 MCG IVCONT (05:13)
[2022-06-05 05:30] LABS: Hematocrit 27.7 % (37.0-47.0); Hemoglobin 8.7 g/dl (12.0-16.0); Mean Corpuscular HGB Conc 31.4 g/dl (31.0-35.0); Mean Corpuscular Hemoglobin 28.8 pg (27.0-33.0); Mean Corpuscular Volume 91.7 fL (80.0-98.0); Mean Platelet Volume 11.8 fL (9.4-12.3); Platelet Count 323 X10*3/uL (160-400); Red Blood Count 3.02 X10*6/uL (4.20-5.50); Red Cell Distribution Width 15.9 % (11.0-16.0); White Blood Count 16.5 X10*3/uL (4.8-10.8)
[2022-06-05 05:48] LABS: Alanine Aminotransferase 11 U/L (0-31); Albumin Level 2.2 g/dL (3.5-5.0); Alkaline Phosphatase 66 U/L (39-117); Anion Gap 14 (12-20); Aspartate Amino Transferase 16 U/L (5-31); Bilirubin Total 0.7 mg/dL (0.0-1.0); Blood Urea Nitrogen 31 mg/dL (9-16); Calcium 7.5 mg/dL (8.4-10.2); Carbon Dioxide 20 mmol/L (22-29); Chloride 108 mmol/L (96-108); Creatinine Clr Calc Pharmacy 99.4; Estimated Glomerular Filt Rate > 60; Glucose Random 207 mg/dL (60-115); Phosphorus 3.6 mg/dL (2.7-4.5); Potassium 5.2 mmol/L (3.3-5.1); Sodium 137 mmol/L (135-145); Total Protein 4.5 g/dL (6.5-8.0)
[2022-06-05 06:00] LABS: Glucose, Whole Blood 175 mg/dL (60-115)
[2022-06-05 06:19] LABS: Band Neutrophils Percent 11 % (3-5); Basophils Abs Manual 0.2 X10*3/uL (0.0-0.2); Basophils Percent Manual 1 % (0-2); Eosinophils Absolute Manual 0.3 X10*3/uL (0.0-0.4); Eosinophils Percent Manual 2 % (0-4); Lymphocytes Absolute Manual 2.3 X10*3/uL (1.2-4.9); Lymphocytes Percent Manual 14 % (20-40); Monocytes Absolute Manual 0.3 X10*3/uL (0.1-1.2); Monocytes Percent Manual 2 % (2-11); Myelocytes Absolute 0.2 X10*/uL; Myelocytes Percent 1 %; Neutrophils Absolute Manual 13.2 X10*3/uL (2.0-8.3); Neutrophils Percent Manual 69 % (45-73)
[2022-06-05 06:22] LABS: RBC Morphology NOTED
[2022-06-05 06:23] LABS: Dohle Bodies PRESENT; Hypochromasia 1+ (5-14) /OIF; Polychromasia 1+ (0-2) /OIF; Toxic Granulation PRESENT
[2022-06-05 06:26] LABS: Platelet Estimate NORMAL (NORMAL); Platelet Morphology Comment NORMAL
--- NOTE | 2022-06-05 06:29 | PC.NURSE ---
PT MAINTAINED ON AC VENT SETTINGS OVERNIGHT. RESP RATE WAS UP TO 28/MIN AND AT THAT TIME, FENTANYL DRIP WAS AT 75 MCG/HR. THIS DRIP WAS INCREASED TO 100 MCG/HR. RESP RATE CAME DOWN TO 20-24. TEMP WAS UP TO 102.5 CORE AND HR UP TO 130. WITH RECTAL TYLENOL, COOLING BLANKET AND COOL SPONGE BATH GIVEN, HR CAME DOWN TO 110'S AND TEMP DOWN TO 99.9 CORE. URINE OUTPUT GOOD, 80-125/HR. TRICKLE TUBE FEEDS AT 10 ML HR. ASPIRATED 120-150 ML.
--- NOTE | 2022-06-05 07:51 | PM.PNGS ---
Subjective Subjective Date of Service: 06/07/22 Interval history: remains on vent has fever good UO sedation holiday yesterday - pt appeared to be engaging with family Physical Exam Vital Signs: Vital Signs: Last Vital Signs Temp 101.3 F H 06/05/22 07:00 Pulse 117 H 06/05/22 07:00 Resp 26 H 06/05/22 07:00 BP 105/50 L 06/05/22 07:00 Pulse Ox 99 06/05/22 07:00 O2 Del Method 06/05/22 06:00 O2 Flow Rate 3 05/23/22 14:38 FiO2 30 06/05/22 07:00 Oxygen Flow Rate 60 05/30/22 18:00 BMI result Body Mass Index 43.2 Const: Other: sedated, on vent Resp: Other: on vent Cardio: Rate: tachycardic Rhythm: regular rhythm GI: Other: soft, drains x [address], most of drains clear looking, drain in pelvis with scanty dark purulent output, stoma functioning Objective Data Active Medications Acetaminophen (Acetaminophen Supp 650 Mg Supp.Rect) 650 mg [place] Q6H PRN PRN Reason: Fever Last Admin: 06/05/22 00:38 Dose: 650 mg Documented By: MARIAJOSE Chlorhexidine Gluconate (Chlorhexidine Gluc Oral Rinse 15 Ml Mouthwash) 15 ml BUCCAL TID [facility] Last Admin: 06/04/22 19:54 Dose: 15 ml Documented By: GEO Propofol (Diprivan) 1,000 mg in 100 mls @ 0 mls/hr IVCONT .Q0M GAUDENCIO; Protocol Last Admin: 06/05/22 04:35 Dose: 30 mcg/kg/min, 18.7 mls/hr Documented By: MARIAJOSE Metronidazole (Flagyl) 500 mg in 100 mls @ 100 mls/hr IV Q8H [facility] Last Infusion: 06/05/22 03:52 Dose: 0 mls/hr Documented By: MARIAJOSE Meropenem 1 gm/ Sodium (Chloride) 100 mls @ 200 mls/hr IV Q8H [facility] Last Infusion: 06/05/22 03:52 Dose: 0 mls/hr Documented By: MARIAJOSE Fentanyl (Sublimaze/Ns) 1,000 mcg in 100 mls @ 0 mls/hr IVCONT .Q0M GAUDENCIO; Protocol Last Admin: 06/05/22 05:13 Dose: 75 mcg/hr, 7.5 mls/hr Documented By: MARIAJOSE Magnesium Sulfate 10 meq/Calcium Gluconate 9.3 meq/Potassium Acetate 100 meq/Multivitamins 11 ml/ Trace Metals 1.1 ml/ Amino Acids/Dextrose 1,800 mls @ 75 mls/hr IV DAILY@1800 GAUDENCIO Stop: 06/05/22 17:59 Last Admin: 06/04/22 18:34 Dose: 75 mls/hr Documented By: DONTRELL Norepinephrine Bitartrate (Levophed) 8 mg in 250 mls @ 0 mls/hr IVCONT .Q0M GAUDENCIO; Protocol Last Titration: 06/04/22 16:35 Dose: 0.05 mcg/kg/min, 10.35 mls/hr Documented By: DNOTRELL Insulin Human Lispro (Insulin Lispro 100 Unit/Ml 3 Ml Vial) 0 unit SUBCUT Q6H [facility]; Protocol Last Admin: 06/05/22 06:25 Dose: 2 unit Documented By: MARIAJOSE Naloxone HCl (Naloxone Hcl 0.4 Mg/Ml Vial) 0.2 mg IVPUSH Q2M PRN PRN Reason: Excessive sedation or RR < 8 Nystatin (Nystatin Powder 15 Gm Bottle) 1 appl TOPICAL BID [facility]; Protocol Last Admin: 06/04/22 20:14 Dose: 1 appl Documented By: GEO Pharmacy Consult (Consult Rx Perform Med Rec) 1 each MISCELLANE ONCE PRN PRN Reason: Consult order Sodium Chloride (0.9 % Sodium Chloride Flush 3 Ml Syringe) 3 ml IVFLUSH QSHIFT [facility] Last Admin: 06/05/22 00:37 Dose: 3 ml Documented By: MARIAJOSE Labs CBC & Chem 7: 06/07/22 05:05 06/07/22 05:05 Labs: Laboratory Results - last 24 hr 06/04/22 06/04/22 06/05/22 11:51 18:00 00:12 MCV MCH MCHC RDW Plt Count MPV Immature Gran % (Auto) Neut % (Auto) Lymph % (Auto) [place] % (Auto) Eos % (Auto) Baso % (Auto) Lymph # (Auto) [place] # (Auto) Eos # (Auto) Baso # (Auto) Abs Immat Gran (auto) Absolute Neuts (auto) Absolute Nucleated RBC Nucleated RBC % (auto) Neutrophils % (Manual) Band Neutrophils % Lymphocytes % (Manual) Monocytes % (Manual) Eosinophils % (Manual) Basophils % (Manual) Myelocytes % Abs Neuts (Manual) Lymphocytes # (Manual) Monocytes # (Manual) Eosinophils # (Manual) Basophils # (Manual) Myelocytes # Toxic Granulation Dohle Bodies Platelet Estimate Plt Morphology Comment RBC Morphology Polychromasia Hypochromasia VBG pH VBG pCO2 VBG pO2 VBG HCO3 VBG O2 Saturation VBG Base Excess Anion Gap Estim Creat Clear Calc Estimated GFR POC Glucose 225 H 256 H 212 H Random Glucose Calcium Phosphorus Magnesium Total Bilirubin AST ALT Alkaline Phosphatase Total Protein Albumin 06/05/22 06/05/22 06/05/22 05:00 05:00 05:05 MCV 91.7 MCH 28.8 MCHC 31.4 RDW 15.9 Plt Count 323 MPV 11.8 Immature Gran % (Auto) Cancelled Neut % (Auto) Cancelled Lymph % (Auto) Cancelled [place] % (Auto) Cancelled Eos % (Auto) Cancelled Baso % (Auto) Cancelled Lymph # (Auto) Cancelled [place] # (Auto) Cancelled Eos # (Auto) Cancelled Baso # (Auto) Cancelled Abs Immat Gran (auto) Cancelled Absolute Neuts (auto) Cancelled Absolute Nucleated RBC 0.000 Nucleated RBC % (auto) 0.0 Neutrophils % (Manual) 69 Band Neutrophils % 11 H Lymphocytes % (Manual) 14 L Monocytes % (Manual) 2 Eosinophils % (Manual) 2 Basophils % (Manual) 1 Myelocytes % 1 Abs Neuts (Manual) 13.2 H Lymphocytes # (Manual) 2.3 Monocytes # (Manual) 0.3 Eosinophils # (Manual) 0.3 Basophils # (Manual) 0.2 Myelocytes # 0.2 Toxic Granulation PRESENT Dohle Bodies PRESENT Platelet Estimate NORMAL Plt Morphology Comment NORMAL RBC Morphology NOTED Polychromasia 1+ (0-2) Hypochromasia 1+ (5-14) VBG pH 7.38 VBG pCO2 31 VBG pO2 39 VBG HCO3 18 L VBG O2 Saturation 62.0 VBG Base Excess -5.4 Anion Gap 14 Estim Creat Clear Calc 99.4 Estimated GFR > 60 POC Glucose Random Glucose 207 H Calcium 7.5 L Phosphorus 3.6 Magnesium 2.0 Total Bilirubin 0.7 AST 16 ALT 11 Alkaline Phosphatase 66 Total Protein 4.5 L Albumin 2.2 L 06/05/22 05:55 MCV MCH MCHC RDW Plt Count MPV Immature Gran % (Auto) Neut % (Auto) Lymph % (Auto) [place] % (Auto) Eos % (Auto) Baso % (Auto) Lymph # (Auto) [place] # (Auto) Eos # (Auto) Baso # (Auto) Abs Immat Gran (auto) Absolute Neuts (auto) Absolute Nucleated RBC Nucleated RBC % (auto) Neutrophils % (Manual) Band Neutrophils % Lymphocytes % (Manual) Monocytes % (Manual) Eosinophils % (Manual) Basophils % (Manual) Myelocytes % Abs Neuts (Manual) Lymphocytes # (Manual) Monocytes # (Manual) Eosinophils # (Manual) Basophils # (Manual) Myelocytes # Toxic Granulation Dohle Bodies Platelet Estimate Plt Morphology Comment RBC Morphology Polychromasia Hypochromasia VBG pH VBG pCO2 VBG pO2 VBG HCO3 VBG O2 Saturation VBG Base Excess Anion Gap Estim Creat Clear Calc Estimated GFR POC Glucose 175 H Random Glucose Calcium Phosphorus Magnesium Total Bilirubin AST ALT Alkaline Phosphatase Total Protein Albumin Microbiology Microbiology Results: Microbiology 06/03/22 15:28 Blood Culture - Preliminary Blood - Subclavian No growth after 24 hours. 06/02/22 Unknown Gram Stain - Final Peritoneal Fluid Routine Culture - Preliminary Yeast Anaerobic Culture - Preliminary Culture in progress. 06/03/22 06:15 Blood Culture - Preliminary Blood - Venous No growth after 24 hours. 06/03/22 06:15 Blood Culture - Preliminary Blood - Venous No growth after 24 hours. Procedures Date of Service Date of Service: 06/05/22 Arterial Line Size (Gauge): 16 Progress Note: A&P Assessment and plan (1) Perforated viscus: Status: Acute Assessment and Plan: s/p sigmoid resection, colostomy still with fever - likely residual intraabdominal infection due to heavy fecal contamination WBC better central line changed tolerating trickle feeds off TPN vent mgt ICU care on IV abx, incl antifungal Time Spent With Patient Time: Total time spent is greater than 50% in coordination of care (as documented) at patient's floor/unit and/or counseling patient: Quality Stroke Does the patient have a stroke diagnosis?: No VTE Prior VTE?: No VTE Risk Level:: Medical - moderate - high VTE Device Contraindication: N/A - Device Ordered VTE Drug Contraindication: N/A - Med Ordered
[2022-06-05] MEDS: Chlorhexidine Gluc Oral Rinse 15 ML MOUTHWASH BUCCAL ×3 (09:10→20:06)
[2022-06-05] MEDS: Albumin Human 25 % 100 ML IV ×3 (09:11→20:06)
[2022-06-05] MEDS: Nystatin Powder 15 GM BOTTLE 1 APPL TOPICAL ×2 (10:18→20:07)
--- NOTE | 2022-06-05 10:40 | MHC.CLN ---
SEE FULL CLINICAL NUTRITION ASSESSMENT DATED 06/05/22
--- NOTE | 2022-06-05 11:06 | PM.CCPN ---
Subjective Subjective Date of Service: 06/05/22 Interval History: 62-year-old lady with underlying history of Crohn's admitted on 05/18/2022 with abdominal discomfort secondary to peritoneal abscess resulting in viscus perforation and peritonitis requiring sigmoid resection with colostomy formation and washout on 05/23/2022 and placement of additional abdominal drains on 05/30/2022. Now continues on ventilatory support with multiple abdominal drains. No events overnight. Critical Care Time (minutes): 60 Physical Exam Vital Signs: Vital Signs: Last Vital Signs Temp 101.1 F H 06/05/22 10:00 Pulse 115 H 06/05/22 10:00 Resp 21 H 06/05/22 10:00 BP 109/50 L 06/05/22 10:00 Pulse Ox 99 06/05/22 10:00 O2 Del Method 06/05/22 10:00 O2 Flow Rate 3 05/23/22 14:38 FiO2 30 06/05/22 10:00 Oxygen Flow Rate 60 05/30/22 18:00 BMI result Body Mass Index 43.2 Const: General: no acute distress and other (Sedated on the vent) Eyes: Sclerae: sclerae normal EOM: EOMs intact bilaterally Neck: Neck: Yes no lymphadenopathy, Yes trachea midline and Yes supple Resp: Auscultation: clear to auscultation bilaterally Cardio: Rate: tachycardic Rhythm: regular rhythm Heart sounds: no gallops, no murmurs and no rubs GI: Inspection: Yes other (Colostomy with fecal output, 5 NOHEMI drains) Palpation (GI): Soft to palpation and Other GI palpation findings present ( Nontender) Auscultation: Hypoactive bowel sounds present Extrem: General: No clubbing, No cyanosis and Yes edema (1+ bilateral) Objective Data Labs CBC & Chem 7: 06/05/22 05:00 06/05/22 05:00 Labs: Laboratory Results - last 24 hr 06/04/22 06/04/22 06/05/22 11:51 18:00 00:12 WBC RBC Hgb Hct MCV MCH MCHC RDW Plt Count MPV Immature Gran % (Auto) Neut % (Auto) Lymph % (Auto) [place] % (Auto) Eos % (Auto) Baso % (Auto) Lymph # (Auto) [place] # (Auto) Eos # (Auto) Baso # (Auto) Abs Immat Gran (auto) Absolute Neuts (auto) Absolute Nucleated RBC Nucleated RBC % (auto) Neutrophils % (Manual) Band Neutrophils % Lymphocytes % (Manual) Monocytes % (Manual) Eosinophils % (Manual) Basophils % (Manual) Myelocytes % Abs Neuts (Manual) Lymphocytes # (Manual) Monocytes # (Manual) Eosinophils # (Manual) Basophils # (Manual) Myelocytes # Toxic Granulation Dohle Bodies Platelet Estimate Plt Morphology Comment RBC Morphology Polychromasia Hypochromasia VBG pH VBG pCO2 VBG pO2 VBG HCO3 VBG O2 Saturation VBG Base Excess Sodium Potassium Chloride Carbon Dioxide Anion Gap BUN Creatinine Estim Creat Clear Calc Estimated GFR POC Glucose 225 H 256 H 212 H Random Glucose Calcium Phosphorus Magnesium Total Bilirubin AST ALT Alkaline Phosphatase Total Protein Albumin 06/05/22 06/05/22 06/05/22 05:00 05:00 05:05 WBC 16.5 H RBC 3.02 L Hgb 8.7 L Hct 27.7 L MCV 91.7 MCH 28.8 MCHC 31.4 RDW 15.9 Plt Count 323 MPV 11.8 Immature Gran % (Auto) Cancelled Neut % (Auto) Cancelled Lymph % (Auto) Cancelled [place] % (Auto) Cancelled Eos % (Auto) Cancelled Baso % (Auto) Cancelled Lymph # (Auto) Cancelled [place] # (Auto) Cancelled Eos # (Auto) Cancelled Baso # (Auto) Cancelled Abs Immat Gran (auto) Cancelled Absolute Neuts (auto) Cancelled Absolute Nucleated RBC 0.000 Nucleated RBC % (auto) 0.0 Neutrophils % (Manual) 69 Band Neutrophils % 11 H Lymphocytes % (Manual) 14 L Monocytes % (Manual) 2 Eosinophils % (Manual) 2 Basophils % (Manual) 1 Myelocytes % 1 Abs Neuts (Manual) 13.2 H Lymphocytes # (Manual) 2.3 Monocytes # (Manual) 0.3 Eosinophils # (Manual) 0.3 Basophils # (Manual) 0.2 Myelocytes # 0.2 Toxic Granulation PRESENT Dohle Bodies PRESENT Platelet Estimate NORMAL Plt Morphology Comment NORMAL RBC Morphology NOTED Polychromasia 1+ (0-2) Hypochromasia 1+ (5-14) VBG pH 7.38 VBG pCO2 31 VBG pO2 39 VBG HCO3 18 L VBG O2 Saturation 62.0 VBG Base Excess -5.4 Sodium 137 Potassium 5.2 H Chloride 108 Carbon Dioxide 20 L Anion Gap 14 BUN 31 H Creatinine 0.71 Estim Creat Clear Calc 99.4 Estimated GFR > 60 POC Glucose Random Glucose 207 H Calcium 7.5 L Phosphorus 3.6 Magnesium 2.0 Total Bilirubin 0.7 AST 16 ALT 11 Alkaline Phosphatase 66 Total Protein 4.5 L Albumin 2.2 L 06/05/22 05:55 WBC RBC Hgb Hct MCV MCH MCHC RDW Plt Count MPV Immature Gran % (Auto) Neut % (Auto) Lymph % (Auto) [place] % (Auto) Eos % (Auto) Baso % (Auto) Lymph # (Auto) [place] # (Auto) Eos # (Auto) Baso # (Auto) Abs Immat Gran (auto) Absolute Neuts (auto) Absolute Nucleated RBC Nucleated RBC % (auto) Neutrophils % (Manual) Band Neutrophils % Lymphocytes % (Manual) Monocytes % (Manual) Eosinophils % (Manual) Basophils % (Manual) Myelocytes % Abs Neuts (Manual) Lymphocytes # (Manual) Monocytes # (Manual) Eosinophils # (Manual) Basophils # (Manual) Myelocytes # Toxic Granulation Dohle Bodies Platelet Estimate Plt Morphology Comment RBC Morphology Polychromasia Hypochromasia VBG pH VBG pCO2 VBG pO2 VBG HCO3 VBG O2 Saturation VBG Base Excess Sodium Potassium Chloride Carbon Dioxide Anion Gap BUN Creatinine Estim Creat Clear Calc Estimated GFR POC Glucose 175 H Random Glucose Calcium Phosphorus Magnesium Total Bilirubin AST ALT Alkaline Phosphatase Total Protein Albumin Microbiology Microbiology Results: Microbiology 06/02/22 Unknown Peritoneal Fluid Gram Stain - Final 06/02/22 Unknown Peritoneal Fluid Routine Culture - Final [place] albicans 06/02/22 Unknown Peritoneal Fluid Anaerobic Culture - Preliminary Culture in progress. 06/03/22 06:15 Blood - Venous Blood Culture - Preliminary No growth after 48 hours. 06/03/22 06:15 Blood - Venous Blood Culture - Preliminary No growth after 48 hours. 06/03/22 15:28 Blood - Subclavian Blood Culture - Preliminary No growth after 24 hours. 05/29/22 15:14 Blood - Venous Blood Culture - Final No growth after 5 days. 05/29/22 15:13 Blood - Venous Blood Culture - Final No growth after 5 days. 05/29/22 05:14 Blood - Venous Blood Culture - Final No growth after 5 days. 05/29/22 05:14 Blood - Venous Blood Culture - Final No growth after 5 days. 06/02/22 Unknown Abscess Intra-abdominal Gram Stain - Final 06/02/22 Unknown Abscess Intra-abdominal Routine Culture - Final 06/02/22 Unknown Abscess Intra-abdominal Anaerobic Culture - Final 06/02/22 Unknown Abscess Intra-abdominal Gram Stain - Final 06/02/22 Unknown Abscess Intra-abdominal Routine Culture - Final 05/28/22 Unknown Peritoneal Fluid Gram Stain - Final 05/28/22 Unknown Peritoneal Fluid Anaerobic Culture - Final 05/28/22 Unknown Peritoneal Fluid Body Fluid Culture - Final Verónica dubliniensis 05/29/22 15:05 Sputum - Suctioned Gram Stain - Final 05/29/22 15:05 Sputum - Suctioned Sputum Culture - Final Verónica dubliniensis 05/28/22 16:47 Sputum - Suctioned Gram Stain - Final 05/28/22 16:47 Sputum - Suctioned Sputum Culture - Final Ver[place] albicans 05/23/22 Unknown Peritoneal Fluid Gram Stain - Final 05/23/22 Unknown Peritoneal Fluid Routine Culture - Final Escherichia coli 05/23/22 Unknown Peritoneal Fluid Anaerobic Culture - Final Clostridium perfringens Bacteroides thetaiotaomicron 05/19/22 08:49 Blood - Venous Blood Culture - Final No growth after 5 days. 05/19/22 08:49 Blood - Venous Blood Culture - Final No growth after 5 days. Progress Note: A&P Assessment and plan (1) Perforated viscus: Status: Acute (2) Crohn's disease: Status: Acute (3) Status post colostomy: Status: Acute (4) Peritonitis: Status: Acute (5) Septic shock: Status: Acute (6) Acute respiratory failure with hypoxia: Status: Acute Plan Assessment: 62 old lady with sigmoid perforation resulting peritonitis status post sigmoid resection, colostomy, washout, multiple abdominal collections requiring additional NOHEMI drain placements Plan: Neuro: No acute issues. Cardiac: Septic shock, continue to titrate of pressors as tolerated. Pulmonary: Acute respiratory failure with hypoxia post-op after peritonitis surgery, continue to titrate off ventilatory support as tolerated. Renal: No acute issues. Endo: No acute issues. GI: Sigmoid perforation with peritonitis status post washout and sigmoid resection with colostomy. General surgery service care appreciated. Further complicated by multiple abdominal collections requiring additional drainage. ID: Peritonitis with multiple organisms, continues on meropenem and Flagyl. Heme/Onc: No acute issues. Psych: No acute issues. Miscellaneous: No acute issues. Prophylaxis: Ppi, heparin Diet: Tube feeds Critical care time spent: 60 minutes Quality Stroke Does the patient have a stroke diagnosis?: No VTE Prior VTE?: No VTE Risk Level:: Medical - moderate - high VTE Device Contraindication: N/A - Device Ordered VTE Drug Contraindication: N/A - Med Ordered
[2022-06-05 11:45] LABS: Glucose, Whole Blood 199 mg/dL (60-115)
[2022-06-05] MEDS: Heparin Sodium,Porcine 5,000 UNIT/ML VIAL 5000 UNIT SUBCUT ×2 (11:52→20:05)
--- NOTE | 2022-06-05 14:20 | MHC.CM.PN ---
Pt continues care in ICU: vented s/p extensive abd surgery r/t perforated viscus. Pt also has 5 NOHEMI drains and continues to be febrile. Plans are to continue IV ATB and have surgery re-eval for ? abd washout. No finalization of d/c plans at this time although it appears pt may need STR/LTAC placement once medically stable. CM to follow.
[2022-06-05] MEDS: fentaNYL citrate/NS 1,000 MCG/100 ML PLAST..BAG 10 MCG IVCONT (14:43)
[2022-06-05 17:42] LABS: Glucose, Whole Blood 248 mg/dL (60-115)
--- NOTE | 2022-06-05 20:11 | PC.NURSE ---
Addendum entered by Sandip Alexander RN 06/05/22 20:19: Patient febrile, started day with core temp 101.1, increased to Tmax 102.7; discussed with MD, no tylenol unless over 103; also off cooling blanket currently. Patient with meropenem and flagyl for coverage. Original Note: Assumed care at 07:00. Patient RASS -4, opens eyes to noxious stimuli, PERRL, 3-4 mm pupils briskly reactive. Discussed sedation holiday today, per MD, weaned off Propofol, had fentanyl still running at 100, was tracking, was not following commands, +pain response gets a flicker in all four extremities. Patient with no gag, positive cough. Patient during sedation holiday for about 3 hours (continued on fentanyl) was found to be hypertensive, with SBP in 170's-150's via A-line, tachycardic 130's-141 sinus tachycardia on monitor, and tachypneic RR 30's; MD aware, fentanyl increased to 200 per MD, and then shortly thereafter, sedation holiday stopped due to sustained tachycardia rate of 140-141. Patient now resting, has #7 ETT, 22 cm at the lip, AC settings 14; 430; 5; amd 30%. Patient with minute volumes around 9. Is still tachycardic in 120's. BP dropped back down and levophed restarted--levophed was 0.05 this morning, was weaned off, and then restarted and increased to 0.11 as indicated. Patient is edematous with +4 pitting edema to bilateral hands, feet, sacrum, legs. Patient with odell catheter and urine outputs 80-88 cc/hour. Patient with ?finecrackles posterior bilateral bases to auscultation. Patient on albumin IV infusions. Small dark brown/greenish liquid BM via colostomy today. 5 NOHEMI drains emptied and all by #3 with cloudy drainage mostly serosanguinous. #3 had clear and yellow drainage, Surgeon notified. ABMN dressing was changed, midlione abdominal incision well approximated, has a wick still in proximal end, 13 jazmine intact; had staining of dark brown serrous drainage to dressing.
[2022-06-05] MEDS: fentaNYL citrate/NS 1,000 MCG/100 ML PLAST..BAG 15 MCG IVCONT (20:34)
[2022-06-05 23:40] LABS: Glucose, Whole Blood 138 mg/dL (60-115)
[2022-06-06] VITALS (49 sets, daily range): BP systolic 80–150; BP diastolic 46–80; PULSE 84–131; RESP 14–59; TEMP 34.9–39.8; O2SAT 92–100; BMI 44.6
[2022-06-06] MEDS: fentaNYL citrate/NS 1,000 MCG/100 ML PLAST..BAG 15 MCG IVCONT ×4 (02:03→21:15)
[2022-06-06] MEDS: Albumin Human 25 % 100 ML IV ×4 (02:04→18:09)
[2022-06-06] MEDS: metroNIDAZOLE/NS 500 MG/100 ML PIGGYBACK 100 MG IV ×3 (02:04→17:06)
[2022-06-06] MEDS: Heparin Sodium,Porcine 5,000 UNIT/ML VIAL 5000 UNIT SUBCUT ×3 (02:47→19:41)
[2022-06-06] MEDS: Acetaminophen Supp 650 MG SUPP.RECT PR (02:58)
[2022-06-06] MEDS: propofoL 1,000 MG/100 ML VIAL 18.7 MG IVCONT ×2 (04:25→08:10)
[2022-06-06 05:24] LABS: VBG Base Excess -2.5 mmol/L; VBG HCO3 21 mmol/L (22-26); VBG pCO2 33 mmHg; VBG pH 7.41 (7.32-7.43); VBG pO2 52 mmHg
[2022-06-06 05:28] LABS: Venous Blood Gas Refer to POC result
[2022-06-06 05:31] LABS: Basophils Absolute Auto 0.1 X10*3/uL (0.0-0.2); Basophils Percent Auto 0.6 % (0-2); Eosinophils Absolute Auto 0.3 X10*3/uL (0.0-0.4); Eosinophils Percent Auto 2.3 % (0-4); Hematocrit 22.6 % (37.0-47.0); Hemoglobin 7.1 g/dl (12.0-16.0); Imm Gran Pct Auto 3.2 % (0.0-0.4); Lymphocytes Absolute Auto 2.1 X10*3/uL (1.2-4.9); Lymphocytes Percent Auto 17.2 % (20-40); MANUAL DIFF FLAG SCAN; Mean Corpuscular HGB Conc 31.4 g/dl (31.0-35.0); Mean Corpuscular Hemoglobin 28.4 pg (27.0-33.0); Mean Corpuscular Volume 90.4 fL (80.0-98.0); Monocytes Absolute Auto 0.7 X10*3/uL (0.1-1.2); Monocytes Percent Auto 5.3 % (2-11); Neutrophils Absolute Auto 8.9 x10*3/uL (2.0-8.3); Neutrophils Percent Auto 71.4 % (45-73); Platelet Count 302 X10*3/uL (160-400); Red Cell Distribution Width 15.8 % (11.0-16.0); SCAN SMEAR FLAG 1; White Blood Count 12.4 X10*3/uL (4.8-10.8)
[2022-06-06 05:49] LABS: Albumin Level 3.2 g/dL (3.5-5.0); Anion Gap 13 (12-20); Blood Urea Nitrogen 26 mg/dL (9-16); Calcium 8.1 mg/dL (8.4-10.2); Carbon Dioxide 22 mmol/L (22-29); Chloride 108 mmol/L (96-108); Creatinine Clr Calc Pharmacy 94.1; Estimated Glomerular Filt Rate > 60; Glucose Random 105 mg/dL (60-115); Magnesium 1.9 mg/dL (1.6-2.6); Phosphorus 3.3 mg/dL (2.7-4.5); Potassium 4.9 mmol/L (3.3-5.1); Sodium 138 mmol/L (135-145)
[2022-06-06 06:02] LABS: SLIDE REVIEW VERIFIED
--- NOTE | 2022-06-06 06:44 | MHC.PIE ---
Shift eval 7p-7a: Patient remains intubated - sedation needing to be increased at approx 2230, r/t patient reaching up for tubes. Restraints put back on patient with renewed order from Nicko [facility] for airway protection. Patient having issues tolerating tube feed - 200ml resid at start of night. Reported to [facility], order to hold for 1 to 2 hours, reassessed for 175ml, order to restart at 10ml. Able to increase to 20ml/hr at 0400. Temp steadily increasing through night. After 3am, temp >103. Nicko C[facility] made aware - put cooling blanket on top of patient at 0330, also gave tylenol CT, then put cooling blanket under patient for 4am reposition. Andrés CUI added lactic level for morning labs. Temp down to 102 by 6am. Able to titrate down on levophed - see MAR for titrations. Issues w/ [place] - waveform dampened for a short time - but then after trouble shooting, able to use. NOHEMI drains x5. Had to empty 2 drains at approx 2200 - see I&O.
[2022-06-06] MEDS: Famotidine/PF 20 MG/2 ML VIAL IVPUSH (08:10)
[2022-06-06] MEDS: Chlorhexidine Gluc Oral Rinse 15 ML MOUTHWASH BUCCAL ×3 (08:10→19:44)
[2022-06-06] MEDS: 0.9 % Sodium Chloride Flush 3 ML SYRINGE IVFLUSH (08:10)
[2022-06-06] MEDS: Nystatin Powder 15 GM BOTTLE 1 APPL TOPICAL ×2 (08:11→22:20)
--- NOTE | 2022-06-06 08:22 | PM.PNGS ---
Subjective Subjective Date of Service: 06/08/22 Interval history: remains intubated was off sedation yesterday in seemed to engage with family stoma function Physical Exam Vital Signs: Vital Signs: Last Vital Signs Temp 102 F H 06/06/22 06:00 Pulse 119 H 06/06/22 07:00 Resp 16 06/06/22 07:00 BP 105/56 L 06/06/22 07:00 Pulse Ox 98 06/06/22 07:00 O2 Del Method 06/06/22 07:00 O2 Flow Rate 3 05/23/22 14:38 FiO2 30 06/06/22 08:09 Oxygen Flow Rate 30 06/05/22 18:00 BMI result Body Mass Index 44.6 Const: Other: on vent, sedated Resp: Other: on ventilator Cardio: Rate: tachycardic GI: Other: soft, stoma with function, drains in place drain with purulent output is the 1 in the pelvis accessed from posterior Objective Data Active Medications Acetaminophen (Acetaminophen Supp 650 Mg Supp.Rect) 650 mg SC Q6H PRN PRN Reason: Fever Last Admin: 06/06/22 02:58 Dose: 650 mg Documented By: GUNJAN Chlorhexidine Gluconate (Chlorhexidine Gluc Oral Rinse 15 Ml Mouthwash) 15 ml BUCCAL TID [facility] Last Admin: 06/06/22 08:10 Dose: 15 ml Documented By: ISH Famotidine (Famotidine/Pf 20 Mg/2 Ml Vial) 20 mg IVPUSH DAILY [facility] Last Admin: 06/06/22 08:10 Dose: 20 mg Documented By: ISH Heparin Sodium (Porcine) (Heparin Sodium,Porcine 5,000 Unit/Ml Vial) 5,000 unit SUBCUT Q8H [facility] Last Admin: 06/06/22 02:47 Dose: 5,000 unit Documented By: GUNJAN Propofol (Diprivan) 1,000 mg in 100 mls @ 0 mls/hr IVCONT .Q0M [facility]; Protocol Last Admin: 06/06/22 08:10 Dose: 30 mcg/kg/min, 18.7 mls/hr Documented By: ISH Metronidazole (Flagyl) 500 mg in 100 mls @ 100 mls/hr IV Q8H [facility] Last Infusion: 06/06/22 03:18 Dose: 0 mls/hr Documented By: GUNJAN Meropenem 1 gm/ Sodium (Chloride) 100 mls @ 200 mls/hr IV Q8H [facility] Last Infusion: 06/06/22 02:47 Dose: 0 mls/hr Documented By: GUNJAN Fentanyl (Sublimaze/Ns) 1,000 mcg in 100 mls @ 0 mls/hr IVCONT .Q0M [facility]; Protocol Last Admin: 06/06/22 08:07 Dose: 150 mcg/hr, 15 mls/hr Documented By: ISH Norepinephrine Bitartrate (Levophed) 8 mg in 250 mls @ 0 mls/hr IVCONT .Q0M [facility]; Protocol Last Admin: 06/06/22 04:25 Dose: 0.03 mcg/kg/min, 6.21 mls/hr Documented By: GUNJAN Albumin Human (Kedbumin 25 %) 100 mls @ 100 mls/hr IV Q6H [facility] Stop: 06/07/22 02:14 Last Admin: 06/06/22 08:10 Dose: 100 mls/hr Documented By: ISH Insulin Human Lispro (Insulin Lispro 100 Unit/Ml 3 Ml Vial) 0 unit SUBCUT Q6H [facility]; Protocol Last Admin: 06/06/22 06:05 Dose: Not Given Documented By: GUNJAN Non-Admin Reason: No Insulin Coverage Naloxone HCl (Naloxone Hcl 0.4 Mg/Ml Vial) 0.2 mg IVPUSH Q2M PRN PRN Reason: Excessive sedation or RR < 8 Nystatin (Nystatin Powder 15 Gm Bottle) 1 appl TOPICAL BID [facility]; Protocol Last Admin: 06/06/22 08:11 Dose: 1 appl Documented By: ISH Pharmacy Consult (Consult Rx Perform Med Rec) 1 each MISCELLANE ONCE PRN PRN Reason: Consult order Sodium Chloride (0.9 % Sodium Chloride Flush 3 Ml Syringe) 3 ml IVFLUSH QSHIFT [facility] Last Admin: 06/06/22 08:10 Dose: 3 ml Documented By: ISH Labs CBC & Chem 7: 06/08/22 05:05 06/08/22 05:05 Labs: Laboratory Results - last 24 hr 06/05/22 06/05/22 06/05/22 11:38 17:39 23:37 MCV MCH MCHC RDW Plt Count MPV Immature Gran % (Auto) Neut % (Auto) Lymph % (Auto) [place] % (Auto) Eos % (Auto) Baso % (Auto) Lymph # (Auto) [place] # (Auto) Eos # (Auto) Baso # (Auto) Abs Immat Gran (auto) Absolute Neuts (auto) Absolute Nucleated RBC Nucleated RBC % (auto) Smear Tech's Comments VBG pH VBG pCO2 VBG pO2 VBG HCO3 VBG O2 Saturation VBG Base Excess Anion Gap Estim Creat Clear Calc Estimated GFR POC Glucose 199 H 248 H 138 H Random Glucose Lactic Acid Calcium Phosphorus Magnesium Albumin 06/06/22 06/06/22 06/06/22 05:08 05:08 05:08 MCV 90.4 MCH 28.4 MCHC 31.4 RDW 15.8 Plt Count 302 MPV 11.0 Immature Gran % (Auto) 3.2 H Neut % (Auto) 71.4 Lymph % (Auto) 17.2 L [place] % (Auto) 5.3 Eos % (Auto) 2.3 Baso % (Auto) 0.6 Lymph # (Auto) 2.1 [place] # (Auto) 0.7 Eos # (Auto) 0.3 Baso # (Auto) 0.1 Abs Immat Gran (auto) 0.40 H Absolute Neuts (auto) 8.9 H Absolute Nucleated RBC 0.000 Nucleated RBC % (auto) 0.0 Smear Tech's Comments VERIFIED VBG pH VBG pCO2 VBG pO2 VBG HCO3 VBG O2 Saturation VBG Base Excess Anion Gap 13 Estim Creat Clear Calc 94.1 Estimated GFR > 60 POC Glucose Random Glucose 105 Lactic Acid 1.0 Calcium 8.1 L D Phosphorus 3.3 Magnesium 1.9 Albumin 3.2 L D 06/06/22 05:18 MCV MCH MCHC RDW Plt Count MPV Immature Gran % (Auto) Neut % (Auto) Lymph % (Auto) [place] % (Auto) Eos % (Auto) Baso % (Auto) Lymph # (Auto) [place] # (Auto) Eos # (Auto) Baso # (Auto) Abs Immat Gran (auto) Absolute Neuts (auto) Absolute Nucleated RBC Nucleated RBC % (auto) Smear Tech's Comments VBG pH 7.41 VBG pCO2 33 VBG pO2 52 VBG HCO3 21 L VBG O2 Saturation 79.0 VBG Base Excess -2.5 Anion Gap Estim Creat Clear Calc Estimated GFR POC Glucose Random Glucose Lactic Acid Calcium Phosphorus Magnesium Albumin Microbiology Microbiology Results: Microbiology 06/03/22 15:28 Blood Culture - Preliminary Blood - Subclavian No growth after 48 hours. 06/02/22 Unknown Fungal Identification - Preliminary Abscess Intra-abdominal Culture in progress. 06/02/22 Unknown Gram Stain - Final Peritoneal Fluid Routine Culture - Final [place] albicans Anaerobic Culture - Preliminary Culture in progress. 06/03/22 06:15 Blood Culture - Preliminary Blood - Venous No growth after 48 hours. 06/03/22 06:15 Blood Culture - Preliminary Blood - Venous No growth after 48 hours. Procedures Date of Service Date of Service: 06/06/22 Arterial Line Size (Gauge): 16 Progress Note: A&P Assessment and plan (1) Perforated viscus: Status: Acute Assessment and Plan: on enteral feeds IV antibiotics stoma functioning vent management as per ICU drains in place Time Spent With Patient Time: Total time spent is greater than 50% in coordination of care (as documented) at patient's floor/unit and/or counseling patient: Quality Stroke Does the patient have a stroke diagnosis?: No VTE Prior VTE?: No VTE Risk Level:: Medical - moderate - high VTE Device Contraindication: N/A - Device Ordered VTE Drug Contraindication: N/A - Med Ordered
--- NOTE | 2022-06-06 11:15 | P.PNCC_ITS ---
Subjective Subjective Date of Service: 06/06/22 Interval History: 62-year-old lady with underlying history of Crohn's admitted on 05/18/2022 with abdominal discomfort secondary to peritoneal abscess resulting in viscus perforation and peritonitis requiring sigmoid resection with colostomy formation and washout on 05/23/2022 and placement of additional abdominal drains on 05/30/2022. Now continues on ventilatory support with multiple abdominal drains. No events overnight. Critical Care Time (minutes): 45 Physical Exam Vital Signs: Vital Signs: Last Vital Signs Temp 101.3 F H 06/06/22 11:00 Pulse 122 H 06/06/22 11:00 Resp 32 H 06/06/22 11:00 BP 131/63 06/06/22 11:00 Pulse Ox 97 06/06/22 11:00 O2 Del Method 06/06/22 11:00 O2 Flow Rate 3 05/23/22 14:38 FiO2 30 06/06/22 11:00 Oxygen Flow Rate 30 06/05/22 18:00 BMI result Body Mass Index 44.6 Const: General: no acute distress and other ( sedated on the vent, arousable sedation vacation) Eyes: Sclerae: sclerae normal EOM: EOMs intact bilaterally Neck: Neck: Yes no lymphadenopathy, Yes trachea midline and Yes supple Resp: Effort & Inspection: normal respiratory effort and no respiratory distress Auscultation: clear to auscultation bilaterally Cardio: Rate: tachycardic Rhythm: regular rhythm Heart sounds: no gallops, no murmurs and no rubs GI: Inspection: Yes other ( colostomy, NOHEMI drains) Palpation (GI): Soft to palpation and Other GI palpation findings present ( Nontender) Auscultation: Hypoactive bowel sounds present Extrem: General: No clubbing, No cyanosis and Yes edema ( trace bilateral) Objective Data Labs CBC & Chem 7: 06/06/22 05:08 06/06/22 05:08 Labs: Laboratory Results - last 24 hr 06/05/22 06/05/22 06/05/22 11:38 17:39 23:37 WBC RBC Hgb Hct MCV MCH MCHC RDW Plt Count MPV Immature Gran % (Auto) Neut % (Auto) Lymph % (Auto) [place] % (Auto) Eos % (Auto) Baso % (Auto) Lymph # (Auto) [place] # (Auto) Eos # (Auto) Baso # (Auto) Abs Immat Gran (auto) Absolute Neuts (auto) Absolute Nucleated RBC Nucleated RBC % (auto) Smear Tech's Comments VBG pH VBG pCO2 VBG pO2 VBG HCO3 VBG O2 Saturation VBG Base Excess Sodium Potassium Chloride Carbon Dioxide Anion Gap BUN Creatinine Estim Creat Clear Calc Estimated GFR POC Glucose 199 H 248 H 138 H Random Glucose Lactic Acid Calcium Phosphorus Magnesium Albumin 06/06/22 06/06/22 06/06/22 05:08 05:08 05:08 WBC 12.4 H RBC 2.50 L Hgb 7.1 L Hct 22.6 L MCV 90.4 MCH 28.4 MCHC 31.4 RDW 15.8 Plt Count 302 MPV 11.0 Immature Gran % (Auto) 3.2 H Neut % (Auto) 71.4 Lymph % (Auto) 17.2 L [place] % (Auto) 5.3 Eos % (Auto) 2.3 Baso % (Auto) 0.6 Lymph # (Auto) 2.1 [place] # (Auto) 0.7 Eos # (Auto) 0.3 Baso # (Auto) 0.1 Abs Immat Gran (auto) 0.40 H Absolute Neuts (auto) 8.9 H Absolute Nucleated RBC 0.000 Nucleated RBC % (auto) 0.0 Smear Tech's Comments VERIFIED VBG pH VBG pCO2 VBG pO2 VBG HCO3 VBG O2 Saturation VBG Base Excess Sodium 138 Potassium 4.9 Chloride 108 Carbon Dioxide 22 Anion Gap 13 BUN 26 H Creatinine 0.75 Estim Creat Clear Calc 94.1 Estimated GFR > 60 POC Glucose Random Glucose 105 Lactic Acid 1.0 Calcium 8.1 L D Phosphorus 3.3 Magnesium 1.9 Albumin 3.2 L D 06/06/22 05:18 WBC RBC Hgb Hct MCV MCH MCHC RDW Plt Count MPV Immature Gran % (Auto) Neut % (Auto) Lymph % (Auto) [place] % (Auto) Eos % (Auto) Baso % (Auto) Lymph # (Auto) [place] # (Auto) Eos # (Auto) Baso # (Auto) Abs Immat Gran (auto) Absolute Neuts (auto) Absolute Nucleated RBC Nucleated RBC % (auto) Smear Tech's Comments VBG pH 7.41 VBG pCO2 33 VBG pO2 52 VBG HCO3 21 L VBG O2 Saturation 79.0 VBG Base Excess -2.5 Sodium Potassium Chloride Carbon Dioxide Anion Gap BUN Creatinine Estim Creat Clear Calc Estimated GFR POC Glucose Random Glucose Lactic Acid Calcium Phosphorus Magnesium Albumin Microbiology Microbiology Results: Microbiology 06/02/22 Unknown Peritoneal Fluid Gram Stain - Final 06/02/22 Unknown Peritoneal Fluid Routine Culture - Final [place] albicans 06/02/22 Unknown Peritoneal Fluid Anaerobic Culture - Preliminary Culture in progress. 06/03/22 15:28 Blood - Subclavian Blood Culture - Preliminary No growth after 48 hours. 06/02/22 Unknown Abscess Intra-abdominal Fungal Identification - Preliminary Culture in progress. 06/03/22 06:15 Blood - Venous Blood Culture - Preliminary No growth after 48 hours. 06/03/22 06:15 Blood - Venous Blood Culture - Preliminary No growth after 48 hours. 05/29/22 15:14 Blood - Venous Blood Culture - Final No growth after 5 days. 05/29/22 15:13 Blood - Venous Blood Culture - Final No growth after 5 days. 05/29/22 05:14 Blood - Venous Blood Culture - Final No growth after 5 days. 05/29/22 05:14 Blood - Venous Blood Culture - Final No growth after 5 days. 06/02/22 Unknown Abscess Intra-abdominal Gram Stain - Final 06/02/22 Unknown Abscess Intra-abdominal Routine Culture - Final 06/02/22 Unknown Abscess Intra-abdominal Anaerobic Culture - Final 06/02/22 Unknown Abscess Intra-abdominal Gram Stain - Final 06/02/22 Unknown Abscess Intra-abdominal Routine Culture - Final 05/28/22 Unknown Peritoneal Fluid Gram Stain - Final 05/28/22 Unknown Peritoneal Fluid Anaerobic Culture - Final 05/28/22 Unknown Peritoneal Fluid Body Fluid Culture - Final Verónica dubliniensis 05/29/22 15:05 Sputum - Suctioned Gram Stain - Final 05/29/22 15:05 Sputum - Suctioned Sputum Culture - Final Verónica dubliniensis 05/28/22 16:47 Sputum - Suctioned Gram Stain - Final 05/28/22 16:47 Sputum - Suctioned Sputum Culture - Final [place] albicans 05/23/22 Unknown Peritoneal Fluid Gram Stain - Final 05/23/22 Unknown Peritoneal Fluid Routine Culture - Final Escherichia coli 05/23/22 Unknown Peritoneal Fluid Anaerobic Culture - Final Clostridium perfringens Bacteroides thetaiotaomicron 05/19/22 08:49 Blood - Venous Blood Culture - Final No growth after 5 days. 05/19/22 08:49 Blood - Venous Blood Culture - Final No growth after 5 days. Progress Note: A&P Assessment and plan (1) Acute respiratory failure with hypoxia: Status: Acute (2) Peritonitis: Status: Acute (3) Crohn's disease: Status: Acute (4) Status post colostomy: Status: Acute (5) Ileus following gastrointestinal surgery: Status: Acute Plan Assessment: 62 old lady with sigmoid perforation resulting peritonitis status post sigmoid resection, colostomy, washout, multiple abdominal collections req uiring additional NOHEMI drain placements Plan: Neuro: No acute issues. Cardiac: Septic shock, continue to titrate of pressors as tolerated. Pulmonary: Acute respiratory failure with hypoxia post-op after peritonitis surgery, continue to titrate off ventilatory support as tolerated. Renal: No acute issues. Endo: No acute issues. GI: Sigmoid perforation with peritonitis status post washout and sigmoid resection with colostomy. General surgery service care appreciated. Further complicated by multiple abdominal collections requiring additional drainage. ID: Peritonitis with multiple organisms, continues on meropenem and Flagyl. Heme/Onc: No acute issues. Psych: No acute issues. Miscellaneous: No acute issues. Prophylaxis: famotidine, heparin Diet: Tube feeds Critical care time spent: 45 minutes Quality Stroke Does the patient have a stroke diagnosis?: No VTE Prior VTE?: No VTE Risk Level:: Medical - moderate - high VTE Device Contraindication: N/A - Device Ordered VTE Drug Contraindication: N/A - Med Ordered
[2022-06-06] MEDS: dexmedeTOMIDidine HCL/NS 400 MCG/100 ML INFUS..BTL 11.42 MCG IVCONT (11:45)
[2022-06-06 11:47] LABS: Glucose, Whole Blood 90 mg/dL (60-115)
[2022-06-06] MEDS: fentaNYL citrate/PF 100 MCG/2 ML VIAL IVPUSH ×4 (12:25→19:53)
[2022-06-06] MEDS: dexmedeTOMIDidine HCL/NS 400 MCG/100 ML INFUS..BTL 28.55 MCG IVCONT (14:42)
--- NOTE | 2022-06-06 16:36 | PM.GIPN ---
Subjective Subjective Date of Service: 06/06/22 Interval History: tolerating tube feeds currently sedated Critical Care Time (minutes): 0 Physical Exam Vital Signs: Vital Signs: Last Vital Signs Temp 99.4 F 06/06/22 14:00 Pulse 90 06/06/22 16:00 Resp 28 H 06/06/22 16:00 BP 130/72 06/06/22 16:01 Pulse Ox 96 06/06/22 16:00 O2 Del Method 06/06/22 16:00 O2 Flow Rate 3 05/23/22 14:38 FiO2 30 06/06/22 16:00 Oxygen Flow Rate 30 06/05/22 18:00 BMI result Body Mass Index 44.6 GI: Other: abdomen is soft Objective Data Labs CBC & Chem 7: 06/06/22 05:08 06/06/22 05:08 Procedures Date of Service Date of Service: 06/06/22 Arterial Line Size (Gauge): 16 Progress Note: A&P Assessment and plan (1) Perforated viscus: Status: Acute Assessment and Plan: slow progress s/p colostomy and peritonitis continue supportive care. Time Spent With Patient Time: Total time spent is greater than 50% in coordination of care (as documented) at patient's floor/unit and/or counseling patient: Quality Stroke Does the patient have a stroke diagnosis?: No VTE Prior VTE?: No VTE Risk Level:: Medical - moderate - high VTE Device Contraindication: N/A - Device Ordered VTE Drug Contraindication: N/A - Med Ordered
[2022-06-06 17:38] LABS: Glucose, Whole Blood 138 mg/dL (60-115)
[2022-06-06] MEDS: dexmedeTOMIDidine HCL/NS 400 MCG/100 ML INFUS..BTL 22.84 MCG IVCONT ×2 (18:08→22:27)
[2022-06-07] VITALS (33 sets, daily range): BP systolic 85–158; BP diastolic 51–82; PULSE 83–127; RESP 15–42; TEMP 34.4–38.7; O2SAT 90–100; BMI 43.7
[2022-06-07 00:01] LABS: Glucose, Whole Blood 114 mg/dL (60-115)
[2022-06-07] MEDS: Acetaminophen Supp 650 MG SUPP.RECT PR (00:06)
[2022-06-07] MEDS: fentaNYL citrate/PF 100 MCG/2 ML VIAL IVPUSH ×7 (00:08→18:09)
[2022-06-07] MEDS: Albumin Human 25 % 100 ML IV (00:23)
[2022-06-07] MEDS: 0.9 % Sodium Chloride Flush 3 ML SYRINGE IVFLUSH ×4 (00:35→23:49)
[2022-06-07] MEDS: metroNIDAZOLE/NS 500 MG/100 ML PIGGYBACK 100 MG IV ×3 (00:40→18:07)
[2022-06-07] MEDS: dexmedeTOMIDidine HCL/NS 400 MCG/100 ML INFUS..BTL 28.55 MCG IVCONT ×4 (02:53→18:07)
[2022-06-07] MEDS: fentaNYL citrate/NS 1,000 MCG/100 ML PLAST..BAG 10 MCG IVCONT (03:00)
[2022-06-07] MEDS: Heparin Sodium,Porcine 5,000 UNIT/ML VIAL 5000 UNIT SUBCUT ×3 (03:04→20:26)
[2022-06-07 05:13] LABS: VBG HCO3 19 mmol/L (22-26); VBG pCO2 30 mmHg; VBG pH 7.39 (7.32-7.43); VBG pO2 44 mmHg
[2022-06-07 05:24] LABS: Venous Blood Gas Refer to POC result
[2022-06-07 05:41] LABS: Hematocrit 23.6 % (37.0-47.0); Hemoglobin 7.7 g/dl (12.0-16.0); Mean Corpuscular HGB Conc 32.6 g/dl (31.0-35.0); Mean Corpuscular Hemoglobin 29.8 pg (27.0-33.0); Mean Corpuscular Volume 91.5 fL (80.0-98.0); Mean Platelet Volume 10.9 fL (9.4-12.3); Platelet Count 351 X10*3/uL (160-400); Red Blood Count 2.58 X10*6/uL (4.20-5.50); Red Cell Distribution Width 15.5 % (11.0-16.0); White Blood Count 13.1 X10*3/uL (4.8-10.8)
[2022-06-07 05:45] LABS: Glucose, Whole Blood 129 mg/dL (60-115)
[2022-06-07 05:59] LABS: Albumin Level 3.6 g/dL (3.5-5.0); Anion Gap 16 (12-20); Blood Urea Nitrogen 24 mg/dL (9-16); Calcium 8.1 mg/dL (8.4-10.2); Carbon Dioxide 20 mmol/L (22-29); Chloride 109 mmol/L (96-108); Creatinine Clr Calc Pharmacy 98.7; Estimated Glomerular Filt Rate > 60; Glucose Random 119 mg/dL (60-115); Magnesium 1.8 mg/dL (1.6-2.6); Phosphorus 3.8 mg/dL (2.7-4.5); Potassium 4.7 mmol/L (3.3-5.1); Sodium 140 mmol/L (135-145)
[2022-06-07 06:18] LABS: Band Neutrophils Percent 13 % (3-5); Eosinophils Absolute Manual 0.3 X10*3/uL (0.0-0.4); Eosinophils Percent Manual 2 % (0-4); Large Platelet PRESENT; Lymphocytes Absolute Manual 0.8 X10*3/uL (1.2-4.9); Lymphocytes Percent Manual 6 % (20-40); Macrocytosis 1+ (5-14) /OIF; Metamyelocytes Absolute 0.3 X10*3/uL; Metamyelocytes Percent 2 %; Monocytes Absolute Manual 0.8 X10*3/uL (0.1-1.2); Monocytes Percent Manual 6 % (2-11); Neutrophils Percent Manual 71 % (45-73); Platelet Estimate SLIGHTLY INCREASED (NORMAL); Platelet Morphology Comment NORMAL; Polychromasia 1+ (0-2) /OIF; RBC Morphology NOTED; Stomatocytes 1+ (5-14) /OIF
[2022-06-07 06:20] LABS: Dohle Bodies PRESENT
[2022-06-07] MEDS: Nystatin Powder 15 GM BOTTLE 1 APPL TOPICAL ×2 (07:19→20:26)
[2022-06-07] MEDS: Famotidine/PF 20 MG/2 ML VIAL IVPUSH (07:19)
[2022-06-07] MEDS: Chlorhexidine Gluc Oral Rinse 15 ML MOUTHWASH BUCCAL ×3 (07:19→20:28)
--- NOTE | 2022-06-07 08:47 | PM.PNGS ---
Subjective Subjective Date of Service: 06/08/22 Interval history: No new events Still intubated Being weaned off vent periodically Still having fever spikes although temperature pattern better On feeds- had high residuals yesterday so rate was decreased Stoma with output Physical Exam Vital Signs: Vital Signs: Last Vital Signs Temp 99.3 F 06/07/22 08:00 Pulse 93 06/07/22 08:00 Resp 16 06/07/22 08:00 BP 116/62 06/07/22 08:00 Pulse Ox 98 06/07/22 08:00 O2 Del Method 06/07/22 08:00 O2 Flow Rate 3 05/23/22 14:38 FiO2 30 06/07/22 08:03 Oxygen Flow Rate 35 06/06/22 17:47 BMI result Body Mass Index 43.7 Const: Other: Intubated on vent Resp: Other: On ventilator Cardio: Rhythm: regular rhythm GI: Other: Soft, dry multiple drains in place, pelvic drain thick and looking but less; stoma with output Objective Data Active Medications Acetaminophen (Acetaminophen Supp 650 Mg Supp.Rect) 650 mg WI Q6H PRN PRN Reason: Fever Last Admin: 06/07/22 00:06 Dose: 650 mg Documented By: MARIAJOSE Chlorhexidine Gluconate (Chlorhexidine Gluc Oral Rinse 15 Ml Mouthwash) 15 ml BUCCAL TID [facility] Last Admin: 06/07/22 07:19 Dose: 15 ml Documented By: LAURIE Famotidine (Famotidine/Pf 20 Mg/2 Ml Vial) 20 mg IVPUSH DAILY [facility] Last Admin: 06/07/22 07:19 Dose: 20 mg Documented By: LAURIE Fentanyl (Fentanyl Citrate/Pf 100 Mcg/2 Ml Vial) 100 mcg IVPUSH Q1H PRN; Protocol PRN Reason: Pain, Moderate (Pain Scale 4-6 Last Admin: 06/07/22 02:57 Dose: 100 mcg Documented By: MARIAJOSE Heparin Sodium (Porcine) (Heparin Sodium,Porcine 5,000 Unit/Ml Vial) 5,000 unit SUBCUT Q8H [facility] Last Admin: 06/07/22 03:04 Dose: 5,000 unit Documented By: MARIAJOSE Propofol (Diprivan) 1,000 mg in 100 mls @ 0 mls/hr IVCONT .Q0M [facility]; Protocol Last Titration: 06/06/22 10:54 Dose: 0 mcg/kg/min, 0 mls/hr Documented By: ISH Metronidazole (Flagyl) 500 mg in 100 mls @ 100 mls/hr IV Q8H [facility] Last Infusion: 06/07/22 02:12 Dose: 0 mls/hr Documented By: MARIAJOSE Meropenem 1 gm/ Sodium (Chloride) 100 mls @ 200 mls/hr IV Q8H [facility] Last Infusion: 06/07/22 02:12 Dose: 0 mls/hr Documented By: MARIAJOSE Norepinephrine Bitartrate (Levophed) 8 mg in 250 mls @ 0 mls/hr IVCONT .Q0M [facility]; Protocol Last Titration: 06/07/22 07:31 Dose: 0.02 mcg/kg/min, 4.14 mls/hr Documented By: LAURIE Dexmedetomidine HCl (Precedex) 400 mcg in 100 mls @ 0 mls/hr IVCONT .Q0M [facility]; Protocol Last Admin: 06/07/22 07:31 Dose: 1 mcg/kg/hr, 28.55 mls/hr Documented By: LAURIE Fentanyl (Sublimaze/Ns) 1,000 mcg in 100 mls @ 0 mls/hr IVCONT .Q0M [facility]; Protocol Last Admin: 06/07/22 03:00 Dose: 100 mcg/hr, 10 mls/hr Documented By: MARIAJOSE Insulin Human Lispro (Insulin Lispro 100 Unit/Ml 3 Ml Vial) 0 unit SUBCUT Q6H [facility]; Protocol Last Admin: 06/07/22 06:23 Dose: Not Given Documented By: MARIAJOSE Non-Admin Reason: No Insulin Coverage Naloxone HCl (Naloxone Hcl 0.4 Mg/Ml Vial) 0.2 mg IVPUSH Q2M PRN PRN Reason: Excessive sedation or RR < 8 Nystatin (Nystatin Powder 15 Gm Bottle) 1 appl TOPICAL BID [facility]; Protocol Last Admin: 06/07/22 07:19 Dose: 1 appl Documented By: LAURIE Pharmacy Consult (Consult Rx Perform Med Rec) 1 each MISCELLANE ONCE PRN PRN Reason: Consult order Sodium Chloride (0.9 % Sodium Chloride Flush 3 Ml Syringe) 3 ml IVFLUSH QSHIFT [facility] Last Admin: 06/07/22 07:19 Dose: 3 ml Documented By: LAURIE Labs CBC & Chem 7: 06/08/22 05:05 06/08/22 05:05 Labs: Laboratory Results - last 24 hr 06/06/22 06/06/22 06/06/22 11:43 17:34 23:58 MCV MCH MCHC RDW Plt Count MPV Immature Gran % (Auto) Neut % (Auto) Lymph % (Auto) [place] % (Auto) Eos % (Auto) Baso % (Auto) Lymph # (Auto) [place] # (Auto) Eos # (Auto) Baso # (Auto) Abs Immat Gran (auto) Absolute Neuts (auto) Absolute Nucleated RBC Nucleated RBC % (auto) Neutrophils % (Manual) Band Neutrophils % Lymphocytes % (Manual) Monocytes % (Manual) Eosinophils % (Manual) Metamyelocytes % Abs Neuts (Manual) Lymphocytes # (Manual) Monocytes # (Manual) Eosinophils # (Manual) Metamyelocytes # Dohle Bodies Platelet Estimate Large Platelets Plt Morphology Comment RBC Morphology Polychromasia Macrocytosis Stomatocytes VBG pH VBG pCO2 VBG pO2 VBG HCO3 VBG O2 Saturation VBG Base Excess Anion Gap Estim Creat Clear Calc Estimated GFR POC Glucose 90 138 H 114 Random Glucose Calcium Phosphorus Magnesium Albumin 06/07/22 06/07/22 06/07/22 05:05 05:05 05:07 MCV 91.5 MCH 29.8 MCHC 32.6 RDW 15.5 Plt Count 351 MPV 10.9 Immature Gran % (Auto) Cancelled Neut % (Auto) Cancelled Lymph % (Auto) Cancelled [place] % (Auto) Cancelled Eos % (Auto) Cancelled Baso % (Auto) Cancelled Lymph # (Auto) Cancelled [place] # (Auto) Cancelled Eos # (Auto) Cancelled Baso # (Auto) Cancelled Abs Immat Gran (auto) Cancelled Absolute Neuts (auto) Cancelled Absolute Nucleated RBC 0.000 Nucleated RBC % (auto) 0.0 Neutrophils % (Manual) 71 Band Neutrophils % 13 H Lymphocytes % (Manual) 6 L Monocytes % (Manual) 6 Eosinophils % (Manual) 2 Metamyelocytes % 2 Abs Neuts (Manual) 11.0 H Lymphocytes # (Manual) 0.8 L Monocytes # (Manual) 0.8 Eosinophils # (Manual) 0.3 Metamyelocytes # 0.3 Dohle Bodies PRESENT Platelet Estimate SLIGHTLY INCREASED Large Platelets PRESENT Plt Morphology Comment NORMAL RBC Morphology NOTED Polychromasia 1+ (0-2) Macrocytosis 1+ (5-14) Stomatocytes 1+ (5-14) VBG pH 7.39 VBG pCO2 30 VBG pO2 44 VBG HCO3 19 L VBG O2 Saturation 73.0 VBG Base Excess -5.0 Anion Gap 16 Estim Creat Clear Calc 98.7 Estimated GFR > 60 POC Glucose Random Glucose 119 H Calcium 8.1 L Phosphorus 3.8 Magnesium 1.8 Albumin 3.6 06/07/22 05:39 MCV MCH MCHC RDW Plt Count MPV Immature Gran % (Auto) Neut % (Auto) Lymph % (Auto) [place] % (Auto) Eos % (Auto) Baso % (Auto) Lymph # (Auto) [place] # (Auto) Eos # (Auto) Baso # (Auto) Abs Immat Gran (auto) Absolute Neuts (auto) Absolute Nucleated RBC Nucleated RBC % (auto) Neutrophils % (Manual) Band Neutrophils % Lymphocytes % (Manual) Monocytes % (Manual) Eosinophils % (Manual) Metamyelocytes % Abs Neuts (Manual) Lymphocytes # (Manual) Monocytes # (Manual) Eosinophils # (Manual) Metamyelocytes # Dohle Bodies Platelet Estimate Large Platelets Plt Morphology Comment RBC Morphology Polychromasia Macrocytosis Stomatocytes VBG pH VBG pCO2 VBG pO2 VBG HCO3 VBG O2 Saturation VBG Base Excess Anion Gap Estim Creat Clear Calc Estimated GFR POC Glucose 129 H Random Glucose Calcium Phosphorus Magnesium Albumin Microbiology Microbiology Results: Microbiology 06/02/22 Unknown Gram Stain - Final Peritoneal Fluid Routine Culture - Final [place] albicans Anaerobic Culture - Final Procedures Date of Service Date of Service: 06/07/22 Arterial Line Size (Gauge): 16 Progress Note: A&P Assessment and plan (1) Perforated viscus: Status: Acute Assessment and Plan: Status post sigmoid resection, ostomy Improving slowly Being weaned off vent Fever pattern seems better On low tube feeds ICU care Antibiotics Good urine output Labs okay Time Spent With Patient Time: Total time spent is greater than 50% in coordination of care (as documented) at patient's floor/unit and/or counseling patient: Quality Stroke Does the patient have a stroke diagnosis?: No VTE Prior VTE?: No VTE Risk Level:: Medical - moderate - high VTE Device Contraindication: N/A - Device Ordered VTE Drug Contraindication: N/A - Med Ordered
[2022-06-07] MEDS: Furosemide 40 MG/4 ML VIAL IVPUSH ×2 (09:15→16:08)
[2022-06-07] MEDS: dexmedeTOMIDidine HCL/NS 400 MCG/100 ML INFUS..BTL 39.97 MCG IVCONT (09:30)
--- NOTE | 2022-06-07 10:27 | MHC.CLN ---
F/U DISCUSSED AT ROUNDS PER TRICKLE FEED CURRENTLY RUNNING NURSING NOTED 120-150 RESIDUALS PT'S GOAL IS VITAL 1.5 AT 30ML/HR WITH 30ML PROSOURCE BID AND 120ML Q 4 HRS TO PROVIDE 1200KCALS (1693KCALS TOTAL WITH SEDATION; 28KCALS/KG), 79G PROTEIN TOTAL (1.3G/KG), 1270ML TOTAL FREE WATER FROM FORMULA (21ML/KG) PT NOTED WITH MODERATE AMOUNT OF RESIDUALS WITH POOR TOLERANCE TO TRICKLE FEEDS AT THIS TIME CONSULT RD IF TPN NEEDED
--- NOTE | 2022-06-07 11:52 | P.PNCC_ITS ---
Subjective Subjective Date of Service: 06/07/22 Interval History: 62-year-old lady with underlying history of Crohn's admitted on 05/18/2022 with abdominal discomfort secondary to peritoneal abscess resulting in viscus perforation and peritonitis requiring sigmoid resection with colostomy formation and washout on 05/23/2022 and placement of additional abdominal drains on 05/30/2022. Now continues on ventilatory support with multiple abdominal drains. No events overnight. Now tolerating pressure support trials, but has an increase in gastric residuals. Critical Care Time (minutes): 45 Physical Exam Vital Signs: Vital Signs: Last Vital Signs Temp 101.1 F H 06/07/22 10:00 Pulse 106 H 06/07/22 11:00 Resp 42 H 06/07/22 11:00 BP 107/61 06/07/22 11:00 Pulse Ox 95 06/07/22 11:00 O2 Del Method 06/07/22 11:00 O2 Flow Rate 3 05/23/22 14:38 FiO2 30 06/07/22 11:39 Oxygen Flow Rate 35 06/06/22 17:47 BMI result Body Mass Index 43.7 Const: General: no acute distress and other ( Sedated on the vent, arousable with sedation vacation) Eyes: Sclerae: sclerae normal EOM: EOMs intact bilaterally Neck: Neck: Yes no lymphadenopathy, Yes trachea midline and Yes supple Resp: Effort & Inspection: normal respiratory effort and no respiratory distress Auscultation: clear to auscultation bilaterally Cardio: Rate: tachycardic Rhythm: regular rhythm Heart sounds: no gallops, no murmurs and no rubs GI: Inspection: Yes other ( ostomy with decreased output) Palpation (GI): Soft to palpation and Other GI palpation findings present ( Nontender) Auscultation: Hypoactive bowel sounds present Extrem: General: No clubbing, No cyanosis and Yes edema ( trace) Objective Data Labs CBC & Chem 7: 06/07/22 05:05 06/07/22 05:05 Labs: Laboratory Results - last 24 hr 06/06/22 06/06/22 06/07/22 17:34 23:58 05:05 WBC 13.1 H RBC 2.58 L Hgb 7.7 L Hct 23.6 L MCV 91.5 MCH 29.8 MCHC 32.6 RDW 15.5 Plt Count 351 MPV 10.9 Immature Gran % (Auto) Cancelled Neut % (Auto) Cancelled Lymph % (Auto) Cancelled [place] % (Auto) Cancelled Eos % (Auto) Cancelled Baso % (Auto) Cancelled Lymph # (Auto) Cancelled [place] # (Auto) Cancelled Eos # (Auto) Cancelled Baso # (Auto) Cancelled Abs Immat Gran (auto) Cancelled Absolute Neuts (auto) Cancelled Absolute Nucleated RBC 0.000 Nucleated RBC % (auto) 0.0 Neutrophils % (Manual) 71 Band Neutrophils % 13 H Lymphocytes % (Manual) 6 L Monocytes % (Manual) 6 Eosinophils % (Manual) 2 Metamyelocytes % 2 Abs Neuts (Manual) 11.0 H Lymphocytes # (Manual) 0.8 L Monocytes # (Manual) 0.8 Eosinophils # (Manual) 0.3 Metamyelocytes # 0.3 Dohle Bodies PRESENT Platelet Estimate SLIGHTLY INCREASED Large Platelets PRESENT Plt Morphology Comment NORMAL RBC Morphology NOTED Polychromasia 1+ (0-2) Macrocytosis 1+ (5-14) Stomatocytes 1+ (5-14) VBG pH VBG pCO2 VBG pO2 VBG HCO3 VBG O2 Saturation VBG Base Excess Sodium Potassium Chloride Carbon Dioxide Anion Gap BUN Creatinine Estim Creat Clear Calc Estimated GFR POC Glucose 138 H 114 Random Glucose Calcium Phosphorus Magnesium Albumin 06/07/22 06/07/22 06/07/22 05:05 05:07 05:39 WBC RBC Hgb Hct MCV MCH MCHC RDW Plt Count MPV Immature Gran % (Auto) Neut % (Auto) Lymph % (Auto) [place] % (Auto) Eos % (Auto) Baso % (Auto) Lymph # (Auto) [place] # (Auto) Eos # (Auto) Baso # (Auto) Abs Immat Gran (auto) Absolute Neuts (auto) Absolute Nucleated RBC Nucleated RBC % (auto) Neutrophils % (Manual) Band Neutrophils % Lymphocytes % (Manual) Monocytes % (Manual) Eosinophils % (Manual) Metamyelocytes % Abs Neuts (Manual) Lymphocytes # (Manual) Monocytes # (Manual) Eosinophils # (Manual) Metamyelocytes # Dohle Bodies Platelet Estimate Large Platelets Plt Morphology Comment RBC Morphology Polychromasia Macrocytosis Stomatocytes VBG pH 7.39 VBG pCO2 30 VBG pO2 44 VBG HCO3 19 L VBG O2 Saturation 73.0 VBG Base Excess -5.0 Sodium 140 Potassium 4.7 Chloride 109 H Carbon Dioxide 20 L Anion Gap 16 BUN 24 H Creatinine 0.72 Estim Creat Clear Calc 98.7 Estimated GFR > 60 POC Glucose 129 H Random Glucose 119 H Calcium 8.1 L Phosphorus 3.8 Magnesium 1.8 Albumin 3.6 Microbiology Microbiology Results: Microbiology 06/02/22 Unknown Peritoneal Fluid Gram Stain - Final 06/02/22 Unknown Peritoneal Fluid Routine Culture - Final [place] albicans 06/02/22 Unknown Peritoneal Fluid Anaerobic Culture - Final 06/03/22 15:28 Blood - Subclavian Blood Culture - Preliminary No growth after 48 hours. 06/02/22 Unknown Abscess Intra-abdominal Fungal Identification - Preliminary Culture in progress. 06/03/22 06:15 Blood - Venous Blood Culture - Preliminary No growth after 48 hours. 06/03/22 06:15 Blood - Venous Blood Culture - Preliminary No growth after 48 hours. 05/29/22 15:14 Blood - Venous Blood Culture - Final No growth after 5 days. 05/29/22 15:13 Blood - Venous Blood Culture - Final No growth after 5 days. 05/29/22 05:14 Blood - Venous Blood Culture - Final No growth after 5 days. 05/29/22 05:14 Blood - Venous Blood Culture - Final No growth after 5 days. 06/02/22 Unknown Abscess Intra-abdominal Gram Stain - Final 06/02/22 Unknown Abscess Intra-abdominal Routine Culture - Final 06/02/22 Unknown Abscess Intra-abdominal Anaerobic Culture - Final 06/02/22 Unknown Abscess Intra-abdominal Gram Stain - Final 06/02/22 Unknown Abscess Intra-abdominal Routine Culture - Final 05/28/22 Unknown Peritoneal Fluid Gram Stain - Final 05/28/22 Unknown Peritoneal Fluid Anaerobic Culture - Final 05/28/22 Unknown Peritoneal Fluid Body Fluid Culture - Final Verónica dubliniensis 05/29/22 15:05 Sputum - Suctioned Gram Stain - Final 05/29/22 15:05 Sputum - Suctioned Sputum Culture - Final Verónica dubliniensis 05/28/22 16:47 Sputum - Suctioned Gram Stain - Final 05/28/22 16:47 Sputum - Suctioned Sputum Culture - Final Ver[place] albicans 05/23/22 Unknown Peritoneal Fluid Gram Stain - Final 05/23/22 Unknown Peritoneal Fluid Routine Culture - Final Escherichia coli 05/23/22 Unknown Peritoneal Fluid Anaerobic Culture - Final Clostridium perfringens Bacteroides thetaiotaomicron 05/19/22 08:49 Blood - Venous Blood Culture - Final No growth after 5 days. 05/19/22 08:49 Blood - Venous Blood Culture - Final No growth after 5 days. Progress Note: A&P Assessment and plan (1) Acute respiratory failure with hypoxia: Status: Acute (2) Peritonitis: Status: Acute (3) Crohn's disease: Status: Acute (4) Status post colostomy: Status: Acute (5) Ileus following gastrointestinal surgery: Status: Acute Plan Assessment: 62-year-old lady with sigmoid perforation resulting peritonitis status post sigmoid resection, colostomy, washout, multiple abdominal collections requiring additional NOHEMI drain placements Plan: Neuro: No acute issues. Cardiac: Septic shock, continue to titrate of pressors as tolerated. Pulmonary: Acute respiratory failure with hypoxia post-op after peritonitis surgery, continue to titrate off ventilatory support as tolerated. now starting to tolerate pressure support trials. Renal: No acute issues. Endo: No acute issues. GI: Sigmoid perforation with peritonitis status post washout and sigmoid resection with colostomy. General surgery service care appreciated. Further complicated by multiple abdominal collections requiring additional drainage. ID: Peritonitis with multiple organisms, continues on meropenem and Flagyl. Heme/Onc: No acute issues. Psych: No acute issues. Miscellaneous: No acute issues. Prophylaxis: famotidine, heparin Diet: Tube feeds Critical care time spent: 45 minutes Quality Stroke Does the patient have a stroke diagnosis?: No VTE Prior VTE?: No VTE Risk Level:: Medical - moderate - high VTE Device Contraindication: N/A - Device Ordered VTE Drug Contraindication: N/A - Med Ordered
[2022-06-07] MEDS: dexmedeTOMIDidine HCL/NS 400 MCG/100 ML INFUS..BTL 34.26 MCG IVCONT ×2 (12:04→21:16)
[2022-06-07] MEDS: fentaNYL citrate/NS 1,000 MCG/100 ML PLAST..BAG 20 MCG IVCONT (12:06)
[2022-06-07 12:14] LABS: Glucose, Whole Blood 128 mg/dL (60-115)
--- NOTE | 2022-06-07 15:00 | MHC.CM.PN ---
Pt continues on vent support, IV ATB and w/5 NOHEMI drains secondary to perforated viscus / peritonitis. D/C plans are pending overall clinical progress but will likely include STR. CM to follow
[2022-06-07] MEDS: dexmedeTOMIDidine HCL/NS 400 MCG/100 ML INFUS..BTL 11.42 MCG IVCONT (16:12)
[2022-06-07 16:47] LABS: ABG Base Excess -1.7 mmol/L; ABG HCO3 21 mmol/L (22-26); ABG pCO2 28 mmHg (32-45); ABG pH 7.47 (7.35-7.45); ABG pO2 95 mmHg (83-108)
--- NOTE | 2022-06-07 17:13 | PM.GIPN ---
Subjective Subjective Date of Service: 06/07/22 Interval History: Weaning trial underway Critical Care Time (minutes): 0 Physical Exam Vital Signs: Vital Signs: Last Vital Signs Temp 99.7 F 06/07/22 16:00 Pulse 117 H 06/07/22 17:00 Resp 35 H 06/07/22 17:00 BP 113/65 06/07/22 17:00 Pulse Ox 93 06/07/22 17:00 O2 Del Method 06/07/22 17:00 O2 Flow Rate 3 05/23/22 14:38 FiO2 30 06/07/22 17:00 Oxygen Flow Rate 35 06/06/22 17:47 BMI result Body Mass Index 43.7 GI: Other: Abdomen is soft Objective Data Labs CBC & Chem 7: 06/07/22 05:05 06/07/22 05:05 Procedures Date of Service Date of Service: 06/07/22 Arterial Line Size (Gauge): 16 Progress Note: A&P Assessment and plan (1) Perforated viscus: Status: Acute Assessment and Plan: Slow progress continues. Continue supportive care and weaning. Time Spent With Patient Time: Total time spent is greater than 50% in coordination of care (as documented) at patient's floor/unit and/or counseling patient: Quality Stroke Does the patient have a stroke diagnosis?: No VTE Prior VTE?: No VTE Risk Level:: Medical - moderate - high VTE Device Contraindication: N/A - Device Ordered VTE Drug Contraindication: N/A - Med Ordered
[2022-06-07 17:57] LABS: Glucose, Whole Blood 143 mg/dL (60-115)
[2022-06-07] MEDS: fentaNYL citrate/NS 1,000 MCG/100 ML PLAST..BAG 7.5 MCG IVCONT (18:03)
[2022-06-07 18:28] LABS: ABG Refer to POC result
--- NOTE | 2022-06-07 18:34 | PC.NURSE ---
Pt extubated @ 1600 to HFNC, diuresed w/IV lasix post-extubation w/good effect. F/u ABG sent, pt tolerating HFNC well. Issues w/delirium at this time, Dr Alonzo notified, no immediate interventions. Conts on precedex and fent gtts, titrated per NOV.
[2022-06-07 21:44] LABS: ABG Base Excess -1.1 mmol/L; ABG HCO3 22 mmol/L (22-26); ABG pCO2 33 mmHg (32-45); ABG pH 7.43 (7.35-7.45); ABG pO2 88 mmHg (83-108)
[2022-06-07 23:42] LABS: ABG Refer to POC result
[2022-06-07 23:44] LABS: Glucose, Whole Blood 134 mg/dL (60-115)
[2022-06-07] MEDS: dexmedeTOMIDidine HCL/NS 400 MCG/100 ML INFUS..BTL 42.83 MCG IVCONT (23:48)
[2022-06-08] VITALS (39 sets, daily range): BP systolic 114–175; BP diastolic 57–104; PULSE 90–130; RESP 22–95; TEMP 36.8–39.3; O2SAT 20–96; BMI 42.8
[2022-06-08] MEDS: dexmedeTOMIDidine HCL/NS 400 MCG/100 ML INFUS..BTL 42.83 MCG IVCONT ×7 (01:56→23:21)
[2022-06-08] MEDS: metroNIDAZOLE/NS 500 MG/100 ML PIGGYBACK 100 MG IV ×3 (01:58→18:15)
[2022-06-08] MEDS: Heparin Sodium,Porcine 5,000 UNIT/ML VIAL 5000 UNIT SUBCUT ×3 (04:39→19:48)
[2022-06-08 05:17] LABS: MANUAL DIFF FLAG NO
[2022-06-08 06:05] LABS: VBG Base Excess -1.7 mmol/L; VBG HCO3 22 mmol/L (22-26); VBG pCO2 35 mmHg; VBG pO2 41 mmHg
[2022-06-08 06:05] LABS: Glucose, Whole Blood 113 mg/dL (60-115)
[2022-06-08 06:08] LABS: Basophils Percent Auto 0.4 % (0-2); Eosinophils Absolute Auto 0.1 X10*3/uL (0.0-0.4); Eosinophils Percent Auto 0.5 % (0-4); Hematocrit 21.6 % (37.0-47.0); Imm Gran Abs Auto 0.18 X10*3/uL (0.00-0.03); Imm Gran Pct Auto 1.7 % (0.0-0.4); Lymphocytes Absolute Auto 1.4 X10*3/uL (1.2-4.9); Mean Corpuscular HGB Conc 31.9 g/dl (31.0-35.0); Mean Corpuscular Hemoglobin 29.2 pg (27.0-33.0); Mean Corpuscular Volume 91.5 fL (80.0-98.0); Mean Platelet Volume 10.7 fL (9.4-12.3); Monocytes Absolute Auto 0.8 X10*3/uL (0.1-1.2); Monocytes Percent Auto 7.3 % (2-11); Neutrophils Absolute Auto 7.8 x10*3/uL (2.0-8.3); Neutrophils Percent Auto 76.1 % (45-73); Platelet Count 363 X10*3/uL (160-400); Red Blood Count 2.36 X10*6/uL (4.20-5.50); Red Cell Distribution Width 15.9 % (11.0-16.0); White Blood Count 10.3 X10*3/uL (4.8-10.8)
[2022-06-08 06:10] LABS: Hemoglobin 6.9 g/dl (12.0-16.0)
[2022-06-08 06:25] LABS: Albumin Level 3.2 g/dL (3.5-5.0); Anion Gap 17 (12-20); Blood Urea Nitrogen 29 mg/dL (9-16); Carbon Dioxide 22 mmol/L (22-29); Chloride 109 mmol/L (96-108); Creatinine Clr Calc Pharmacy 87.8; Estimated Glomerular Filt Rate > 60; Glucose Random 124 mg/dL (60-115); Magnesium 1.8 mg/dL (1.6-2.6); Phosphorus 4.5 mg/dL (2.7-4.5); Potassium 4.4 mmol/L (3.3-5.1); Sodium 144 mmol/L (135-145)
--- NOTE | 2022-06-08 06:45 | PC.NURSE ---
Treva removed , catheter intact. Patient tolerated well , will continue to monitor.
--- NOTE | 2022-06-08 07:56 | P.PNGS_ITS ---
Subjective Subjective Date of Service: 06/09/22 Interval history: Extubated Says she is thirsty Wants to drink water Stoma functioning Physical Exam Vital Signs: Vital Signs: Last Vital Signs Temp 99.8 F 06/08/22 04:00 Pulse 90 06/08/22 07:00 Resp 95 H 06/08/22 07:35 BP 114/63 06/08/22 07:00 Pulse Ox 95 06/08/22 07:00 O2 Del Method 06/08/22 07:00 O2 Flow Rate 50 06/08/22 07:00 FiO2 35 06/08/22 07:00 Oxygen Flow Rate 50 06/07/22 18:00 BMI result Body Mass Index 42.8 Const: Other: Off vent, asking for water Resp: Other: A little short of breath Cardio: Rhythm: regular rhythm GI: Other: Soft, no guarding or no rebound, stoma with function, dressings dry, multiple drains in place Objective Data Active Medications Acetaminophen (Acetaminophen Supp 650 Mg Supp.Rect) 650 mg [place] Q6H PRN PRN Reason: Fever Last Admin: 06/07/22 00:06 Dose: 650 mg Documented By: MARIAJOSE Chlorhexidine Gluconate (Chlorhexidine Gluc Oral Rinse 15 Ml Mouthwash) 15 ml BUCCAL TID [facility] Last Admin: 06/07/22 20:28 Dose: 15 ml Documented By: YONATHAN Famotidine (Famotidine/Pf 20 Mg/2 Ml Vial) 20 mg IVPUSH DAILY [facility] Last Admin: 06/07/22 07:19 Dose: 20 mg Documented By: KIM-JUMANA Fentanyl (Fentanyl Citrate/Pf 100 Mcg/2 Ml Vial) 100 mcg IVPUSH Q1H PRN; Protocol PRN Reason: Pain, Moderate (Pain Scale 4-6 Last Admin: 06/07/22 18:09 Dose: 100 mcg Documented By: LAURIE Heparin Sodium (Porcine) (Heparin Sodium,Porcine 5,000 Unit/Ml Vial) 5,000 unit SUBCUT Q8H [facility] Last Admin: 06/08/22 04:39 Dose: 5,000 unit Documented By: YONATHAN Metronidazole (Flagyl) 500 mg in 100 mls @ 100 mls/hr IV Q8H [facility] Last Infusion: 06/08/22 04:58 Dose: 100 mls/hr Documented By: YONATHAN Meropenem 1 gm/ Sodium (Chloride) 100 mls @ 200 mls/hr IV Q8H [facility] Last Infusion: 06/08/22 04:21 Dose: 200 mls/hr Documented By: YONATHAN Norepinephrine Bitartrate (Levophed) 8 mg in 250 mls @ 0 mls/hr IVCONT .Q0M [facility]; Protocol Last Titration: 06/07/22 07:31 Dose: 0.02 mcg/kg/min, 4.14 mls/hr Documented By: KIM-JUMANA Dexmedetomidine HCl (Precedex) 400 mcg in 100 mls @ 0 mls/hr IVCONT .Q0M [facility]; Protocol Last Admin: 06/08/22 06:21 Dose: 1.5 mcg/kg/hr, 42.83 mls/hr Documented By: YONATHAN Fentanyl (Sublimaze/Ns) 1,000 mcg in 100 mls @ 0 mls/hr IVCONT .Q0M [facility]; Protocol Last Titration: 06/08/22 05:32 Dose: 100 mcg/hr, 10 mls/hr Documented By: YONATHAN Insulin Human Lispro (Insulin Lispro 100 Unit/Ml 3 Ml Vial) 0 unit SUBCUT Q6H [facility]; Protocol Last Admin: 06/08/22 06:23 Dose: Not Given Documented By: YONATHAN Non-Admin Reason: No Insulin Coverage Naloxone HCl (Naloxone Hcl 0.4 Mg/Ml Vial) 0.2 mg IVPUSH Q2M PRN PRN Reason: Excessive sedation or RR < 8 Nystatin (Nystatin Powder 15 Gm Bottle) 1 appl TOPICAL BID [facility]; Protocol Last Admin: 06/07/22 20:26 Dose: 1 appl Documented By: YONATHAN Pharmacy Consult (Consult Rx Perform Med Rec) 1 each MISCELLANE ONCE PRN PRN Reason: Consult order Sodium Chloride (0.9 % Sodium Chloride Flush 3 Ml Syringe) 3 ml IVFLUSH QSHIFT [facility] Last Admin: 06/07/22 23:49 Dose: 3 ml Documented By: YONATHAN Labs CBC & Chem 7: 06/09/22 05:15 06/09/22 05:15 Labs: Laboratory Results - last 24 hr 06/07/22 06/07/22 06/07/22 12:09 16:41 17:54 MCV MCH MCHC RDW Plt Count MPV Immature Gran % (Auto) Neut % (Auto) Lymph % (Auto) [place] % (Auto) Eos % (Auto) Baso % (Auto) Lymph # (Auto) [place] # (Auto) Eos # (Auto) Baso # (Auto) Abs Immat Gran (auto) Absolute Neuts (auto) Absolute Nucleated RBC Nucleated RBC % (auto) O2 Saturation 100.0 ABG pH at Pt Temp 7.47 H ABG pCO2 at Pt Temp 28 L ABG pO2 at Pt Temp 95 ABG HCO3 21 L ABG Base Excess (Actual) -1.7 VBG pH VBG pCO2 VBG pO2 VBG HCO3 VBG O2 Saturation VBG Base Excess Anion Gap Estim Creat Clear Calc Estimated GFR POC Glucose 128 H 143 H Random Glucose Calcium Phosphorus Magnesium Albumin Blood Type Antibody Screen Crossmatch 06/07/22 06/07/22 06/08/22 21:39 23:38 05:05 MCV 91.5 MCH 29.2 MCHC 31.9 RDW 15.9 Plt Count 363 MPV 10.7 Immature Gran % (Auto) 1.7 H Neut % (Auto) 76.1 H Lymph % (Auto) 14.0 L [place] % (Auto) 7.3 Eos % (Auto) 0.5 Baso % (Auto) 0.4 Lymph # (Auto) 1.4 [place] # (Auto) 0.8 Eos # (Auto) 0.1 Baso # (Auto) 0.0 Abs Immat Gran (auto) 0.18 H Absolute Neuts (auto) 7.8 Absolute Nucleated RBC 0.000 Nucleated RBC % (auto) 0.0 O2 Saturation 99.0 ABG pH at Pt Temp 7.43 ABG pCO2 at Pt Temp 33 ABG pO2 at Pt Temp 88 ABG HCO3 22 ABG Base Excess (Actual) -1.1 VBG pH VBG pCO2 VBG pO2 VBG HCO3 VBG O2 Saturation VBG Base Excess Anion Gap Estim Creat Clear Calc Estimated GFR POC Glucose 134 H Random Glucose Calcium Phosphorus Magnesium Albumin Blood Type Antibody Screen Crossmatch 06/08/22 06/08/22 06/08/22 05:05 05:18 05:52 MCV MCH MCHC RDW Plt Count MPV Immature Gran % (Auto) Neut % (Auto) Lymph % (Auto) [place] % (Auto) Eos % (Auto) Baso % (Auto) Lymph # (Auto) [place] # (Auto) Eos # (Auto) Baso # (Auto) Abs Immat Gran (auto) Absolute Neuts (auto) Absolute Nucleated RBC Nucleated RBC % (auto) O2 Saturation ABG pH at Pt Temp ABG pCO2 at Pt Temp ABG pO2 at Pt Temp ABG HCO3 ABG Base Excess (Actual) VBG pH 7.40 VBG pCO2 35 VBG pO2 41 VBG HCO3 22 VBG O2 Saturation 63.0 VBG Base Excess -1.7 Anion Gap 17 Estim Creat Clear Calc 87.8 Estimated GFR > 60 POC Glucose 113 Random Glucose 124 H Calcium 8.0 L Phosphorus 4.5 Magnesium 1.8 Albumin 3.2 L Blood Type Antibody Screen Crossmatch 06/08/22 06:30 MCV MCH MCHC RDW Plt Count MPV Immature Gran % (Auto) Neut % (Auto) Lymph % (Auto) [place] % (Auto) Eos % (Auto) Baso % (Auto) Lymph # (Auto) [place] # (Auto) Eos # (Auto) Baso # (Auto) Abs Immat Gran (auto) Absolute Neuts (auto) Absolute Nucleated RBC Nucleated RBC % (auto) O2 Saturation ABG pH at Pt Temp ABG pCO2 at Pt Temp ABG pO2 at Pt Temp ABG HCO3 ABG Base Excess (Actual) VBG pH VBG pCO2 VBG pO2 VBG HCO3 VBG O2 Saturation VBG Base Excess Anion Gap Estim Creat Clear Calc Estimated GFR POC Glucose Random Glucose Calcium Phosphorus Magnesium Albumin Blood Type B Positive Antibody Screen NEGATIVE Crossmatch See Detail Microbiology Microbiology Results: Microbiology 06/02/22 Unknown Gram Stain - Final Peritoneal Fluid Routine Culture - Final Ver[place] albicans Anaerobic Culture - Final Procedures Date of Service Date of Service: 06/08/22 Arterial Line Size (Gauge): 16 Progress Note: A&P Assessment and plan (1) Perforated viscus: Status: Acute Assessment and Plan: Status post Callie's procedure Was extubated yesterday Stoma functioning Good urine output Aspiration precautions - may need swallow eval Keep drains in place for now Hemoglobin low Rest of care as per ICU Time Spent With Patient Time: Total time spent is greater than 50% in coordination of care (as documented) at patient's floor/unit and/or counseling patient: Quality Stroke Does the patient have a stroke diagnosis?: No VTE Prior VTE?: No VTE Risk Level:: Medical - moderate - high VTE Device Contraindication: N/A - Device Ordered VTE Drug Contraindication: N/A - Med Ordered
[2022-06-08 07:57] LABS: Venous Blood Gas Refer to POC result
[2022-06-08] MEDS: Nystatin Powder 15 GM BOTTLE 1 APPL TOPICAL ×2 (07:57→20:36)
[2022-06-08] MEDS: fentaNYL citrate/PF 100 MCG/2 ML VIAL IVPUSH ×2 (07:57→13:19)
[2022-06-08] MEDS: 0.9 % Sodium Chloride Flush 3 ML SYRINGE IVFLUSH ×3 (07:57→23:40)
[2022-06-08] MEDS: Famotidine/PF 20 MG/2 ML VIAL IVPUSH (07:57)
[2022-06-08] MEDS: Chlorhexidine Gluc Oral Rinse 15 ML MOUTHWASH BUCCAL ×2 (07:57→13:24)
[2022-06-08] MEDS: lamoTRIgine 25 MG TABLET PO (08:34)
[2022-06-08] MEDS: Magnesium Sulfate/H2O 2 GM/50 ML PIGGYBACK IV (10:11)
--- NOTE | 2022-06-08 10:15 | MHC.CLN ---
F/U PT EXTUBATED AWAITING BINDING MACHINE OPERATOR EVAL FOR APPROPRIATE DIET CONSISTENCY WHEN DIET TO ADVANCE; RECOMMEND ADDING ENSURE BID TO INCREASE KCALS SUPP TO PROVIDE 700KCALS, 40G PROTEIN
[2022-06-08] MEDS: Midazolam HCl/PF 2 MG/2 ML VIAL 1 MG IVPUSH (10:29)
[2022-06-08] MEDS: dexmedeTOMIDidine HCL/NS 400 MCG/100 ML INFUS..BTL 5.71 MCG IVCONT (10:41)
--- NOTE | 2022-06-08 11:14 | MHC.SL.SWA ---
Speech Pathologist Impression: Risk of Aspiration Due to: Medically Fragile Hx of Recent Extubation Weak Cough Dysphasia Diet Status: Liquid Consistency and Strategies for Safe Swallow: Liquid Intake Recommendation: sips ofH20 Liquid Intake Strategies: Small Sips Solid Food Consistency: Dietary Recommendations: NPO Additional Modifications to Solid Foods: Oral Medication Intake: NPO Please contact the pharmacy regarding appropriate crushable or liquid drug formulations that are available whenever modified delivery is recommended. Compensatory Strategies and Precautions to be Taken for Safe Swallow: Sitting Upright (90 deg) No Straw Liquids from Spoon Supervision While Eating and Drinking for Safe Swallow: PO with STRUCTURAL MILL SUPERVISOR Foods to Avoid: Swallowing Recommended Treatments: Gustatory Stimulation Compens. Strategy Educat. Recommendation for Speech: Inpatient Speech Therapy Comment: Patient able to complete only limited assessment today due to patient's difficulty with endurance (c/o fatigue, discomfort, asked for cessation of eval). Patient tolerated tsp amounts of water with swallow mostly WFL with no clinical signs of aspiration, as well as some tsp amounts of puree (apple sauce) also with no clinical signs of aspiration. Due to poor endurance, observed weak cough, limited assessment, recommend patient continue NPO, although Patient can have sips of water supervised by nursing. STRUCTURAL MILL SUPERVISOR will continue to assess for appropriateness and readiness for diet. Discussed recommendations with nursing and MD in person in ICU. Frequency/Duration: M-F Date Range for Service Req: Timeline to reassess: Superintendent Automotive Clinican/Clinical Fellow: No Supervisory Statement: I have reviewed and agree with the student/clinical fellow's documentation: N/A Speech Language Pathologist: Evette Talbert M.A., CCC-STRUCTURAL MILL SUPERVISOR
[2022-06-08 11:45] LABS: Glucose, Whole Blood 132 mg/dL (60-115)
--- NOTE | 2022-06-08 13:20 | P.PNCC_ITS ---
Subjective Subjective Date of Service: 06/08/22 Interval History: 62-year-old lady with underlying history of Crohn's admitted on 05/18/2022 with abdominal discomfort secondary to peritoneal abscess resulting in viscus perforation and peritonitis requiring sigmoid resection with colostomy formation and washout on 05/23/2022 and placement of additional abdominal drains on 05/30/2022. Extubated 06/07/2022. Continues with multiple abdominal drains. No events overnight. Critical Care Time (minutes): 45 Physical Exam Vital Signs: Vital Signs: Last Vital Signs Temp 98.4 F 06/08/22 12:00 Pulse 109 H 06/08/22 13:00 Resp 41 H 06/08/22 13:00 BP 158/86 H 06/08/22 13:00 Pulse Ox 92 06/08/22 13:00 O2 Del Method 06/08/22 13:00 O2 Flow Rate 50 06/08/22 13:00 FiO2 35 06/08/22 13:00 Oxygen Flow Rate 50 06/07/22 18:00 BMI result Body Mass Index 42.8 Const: General: alert, awake, anxious and confusion Nutritional Appearance: obese Orientation/consciousness: confusion Eyes: Sclerae: sclerae normal EOM: EOMs intact bilaterally Neck: Neck: Yes no lymphadenopathy, Yes trachea midline and Yes supple Resp: Effort & Inspection: normal respiratory effort and tachypneic Auscultation: crackles ( Bibasilar) Cardio: Rate: regular rate Rhythm: regular rhythm Heart sounds: no gallops, no murmurs and no rubs GI: Inspection: Yes other ( 5 abdominal drains) Palpation (GI): Soft to palpation and Other GI palpation findings present ( Nontender) Auscultation: Hypoactive bowel sounds present Neuro: General: confusion Extrem: General: No clubbing, No cyanosis and Yes edema ( trace bilateral) Objective Data Labs CBC & Chem 7: 06/08/22 05:05 06/08/22 05:05 Labs: Laboratory Results - last 24 hr 06/07/22 06/07/22 06/07/22 16:41 17:54 21:39 WBC RBC Hgb Hct MCV MCH MCHC RDW Plt Count MPV Immature Gran % (Auto) Neut % (Auto) Lymph % (Auto) [place] % (Auto) Eos % (Auto) Baso % (Auto) Lymph # (Auto) [place] # (Auto) Eos # (Auto) Baso # (Auto) Abs Immat Gran (auto) Absolute Neuts (auto) Absolute Nucleated RBC Nucleated RBC % (auto) O2 Saturation 100.0 99.0 ABG pH at Pt Temp 7.47 H 7.43 ABG pCO2 at Pt Temp 28 L 33 ABG pO2 at Pt Temp 95 88 ABG HCO3 21 L 22 ABG Base Excess (Actual) -1.7 -1.1 VBG pH VBG pCO2 VBG pO2 VBG HCO3 VBG O2 Saturation VBG Base Excess Sodium Potassium Chloride Carbon Dioxide Anion Gap BUN Creatinine Estim Creat Clear Calc Estimated GFR POC Glucose 143 H Random Glucose Calcium Phosphorus Magnesium Albumin Blood Type Antibody Screen Crossmatch 06/07/22 06/08/22 06/08/22 23:38 05:05 05:05 WBC 10.3 RBC 2.36 L Hgb 6.9 L* Hct 21.6 L MCV 91.5 MCH 29.2 MCHC 31.9 RDW 15.9 Plt Count 363 MPV 10.7 Immature Gran % (Auto) 1.7 H Neut % (Auto) 76.1 H Lymph % (Auto) 14.0 L [place] % (Auto) 7.3 Eos % (Auto) 0.5 Baso % (Auto) 0.4 Lymph # (Auto) 1.4 [place] # (Auto) 0.8 Eos # (Auto) 0.1 Baso # (Auto) 0.0 Abs Immat Gran (auto) 0.18 H Absolute Neuts (auto) 7.8 Absolute Nucleated RBC 0.000 Nucleated RBC % (auto) 0.0 O2 Saturation ABG pH at Pt Temp ABG pCO2 at Pt Temp ABG pO2 at Pt Temp ABG HCO3 ABG Base Excess (Actual) VBG pH VBG pCO2 VBG pO2 VBG HCO3 VBG O2 Saturation VBG Base Excess Sodium 144 Potassium 4.4 Chloride 109 H Carbon Dioxide 22 Anion Gap 17 BUN 29 H Creatinine 0.80 Estim Creat Clear Calc 87.8 Estimated GFR > 60 POC Glucose 134 H Random Glucose 124 H Calcium 8.0 L Phosphorus 4.5 Magnesium 1.8 Albumin 3.2 L Blood Type Antibody Screen Crossmatch 06/08/22 06/08/22 06/08/22 05:18 05:52 06:30 WBC RBC Hgb Hct MCV MCH MCHC RDW Plt Count MPV Immature Gran % (Auto) Neut % (Auto) Lymph % (Auto) [place] % (Auto) Eos % (Auto) Baso % (Auto) Lymph # (Auto) [place] # (Auto) Eos # (Auto) Baso # (Auto) Abs Immat Gran (auto) Absolute Neuts (auto) Absolute Nucleated RBC Nucleated RBC % (auto) O2 Saturation ABG pH at Pt Temp ABG pCO2 at Pt Temp ABG pO2 at Pt Temp ABG HCO3 ABG Base Excess (Actual) VBG pH 7.40 VBG pCO2 35 VBG pO2 41 VBG HCO3 22 VBG O2 Saturation 63.0 VBG Base Excess -1.7 Sodium Potassium Chloride Carbon Dioxide Anion Gap BUN Creatinine Estim Creat Clear Calc Estimated GFR POC Glucose 113 Random Glucose Calcium Phosphorus Magnesium Albumin Blood Type B Positive Antibody Screen NEGATIVE Crossmatch See Detail 06/08/22 11:41 WBC RBC Hgb Hct MCV MCH MCHC RDW Plt Count MPV Immature Gran % (Auto) Neut % (Auto) Lymph % (Auto) [place] % (Auto) Eos % (Auto) Baso % (Auto) Lymph # (Auto) [place] # (Auto) Eos # (Auto) Baso # (Auto) Abs Immat Gran (auto) Absolute Neuts (auto) Absolute Nucleated RBC Nucleated RBC % (auto) O2 Saturation ABG pH at Pt Temp ABG pCO2 at Pt Temp ABG pO2 at Pt Temp ABG HCO3 ABG Base Excess (Actual) VBG pH VBG pCO2 VBG pO2 VBG HCO3 VBG O2 Saturation VBG Base Excess Sodium Potassium Chloride Carbon Dioxide Anion Gap BUN Creatinine Estim Creat Clear Calc Estimated GFR POC Glucose 132 H Random Glucose Calcium Phosphorus Magnesium Albumin Blood Type Antibody Screen Crossmatch Microbiology Microbiology Results: Microbiology 06/03/22 06:15 Blood - Venous Blood Culture - Final No growth after 5 days. 06/03/22 06:15 Blood - Venous Blood Culture - Final No growth after 5 days. 06/02/22 Unknown Peritoneal Fluid Gram Stain - Final 06/02/22 Unknown Peritoneal Fluid Routine Culture - Final [place] albicans 06/02/22 Unknown Peritoneal Fluid Anaerobic Culture - Final 06/03/22 15:28 Blood - Subclavian Blood Culture - Preliminary No growth after 48 hours. 06/02/22 Unknown Abscess Intra-abdominal Fungal Identification - Preliminary Culture in progress. 05/29/22 15:14 Blood - Venous Blood Culture - Final No growth after 5 days. 05/29/22 15:13 Blood - Venous Blood Culture - Final No growth after 5 days. 05/29/22 05:14 Blood - Venous Blood Culture - Final No growth after 5 days. 05/29/22 05:14 Blood - Venous Blood Culture - Final No growth after 5 days. 06/02/22 Unknown Abscess Intra-abdominal Gram Stain - Final 06/02/22 Unknown Abscess Intra-abdominal Routine Culture - Final 06/02/22 Unknown Abscess Intra-abdominal Anaerobic Culture - Final 06/02/22 Unknown Abscess Intra-abdominal Gram Stain - Final 06/02/22 Unknown Abscess Intra-abdominal Routine Culture - Final 05/28/22 Unknown Peritoneal Fluid Gram Stain - Final 05/28/22 Unknown Peritoneal Fluid Anaerobic Culture - Final 05/28/22 Unknown Peritoneal Fluid Body Fluid Culture - Final Verónica dubliniensis 05/29/22 15:05 Sputum - Suctioned Gram Stain - Final 05/29/22 15:05 Sputum - Suctioned Sputum Culture - Final Verónica dubliniensis 05/28/22 16:47 Sputum - Suctioned Gram Stain - Final 05/28/22 16:47 Sputum - Suctioned Sputum Culture - Final [place] albicans 05/23/22 Unknown Peritoneal Fluid Gram Stain - Final 05/23/22 Unknown Peritoneal Fluid Routine Culture - Final Escherichia coli 05/23/22 Unknown Peritoneal Fluid Anaerobic Culture - Final Clostridium perfringens Bacteroides thetaiotaomicron 05/19/22 08:49 Blood - Venous Blood Culture - Final No growth after 5 days. 05/19/22 08:49 Blood - Venous Blood Culture - Final No growth after 5 days. Progress Note: A&P Assessment and plan (1) Acute respiratory failure with hypoxia: Status: Acute (2) Peritonitis: Status: Acute (3) Crohn's disease: Status: Acute (4) Status post colostomy: Status: Acute (5) Ileus following gastrointestinal surgery: Status: Acute Plan Assessment: 62-year-old lady with sigmoid perforation resulting peritonitis status post sigmoid resection, colostomy, washout, multiple abdominal collections requiring additional NOHEMI drain placements Plan: Neuro: significant anxiety component, continue to titrate of Precedex as tolerated Cardiac: Septic shock, continue to titrate off pressors as tolerated. Pulmonary: Acute respiratory failure with hypoxia post-op after peritonitis surgery, extubated 06/07/2022. Continue to titrate off supplemental oxygen support as tolerated. Renal: No acute issues. Endo: No acute issues. GI: Sigmoid perforation with peritonitis status post washout and sigmoid resection with colostomy. General surgery and gastroenterology services care appreciated. Further complicated by multiple abdominal collections requiring additional drainage. Ileus is slowly improving. ID: Peritonitis with multiple organisms, continues on meropenem and Flagyl. Heme/Onc: No acute issues. Psych: No acute issues. Miscellaneous: No acute issues. Prophylaxis: famotidine, heparin Diet: pending swallow evaluation Critical care time spent: 45 minutes Quality Stroke Does the patient have a stroke diagnosis?: No VTE Prior VTE?: No VTE Risk Level:: Medical - moderate - high VTE Device Contraindication: N/A - Device Ordered VTE Drug Contraindication: N/A - Med Ordered
[2022-06-08] MEDS: fentaNYL citrate/NS 1,000 MCG/100 ML PLAST..BAG 10 MCG IVCONT ×2 (14:06→23:24)
[2022-06-08] MEDS: Midazolam HCl/PF 2 MG/2 ML VIAL 0.5 MG IVPUSH (14:52)
[2022-06-08] MEDS: dexmedeTOMIDidine HCL/NS 400 MCG/100 ML INFUS..BTL 34.26 MCG IVCONT (15:59)
--- NOTE | 2022-06-08 16:20 | PM.EVENT ---
Event Note Date of Service: 06/08/22 Event Note: Seen afternoon rounds Remains extubated Some shortness of breath Confused Abdomen soft Stoma with output Good urine output as well On high-flow O2 Continue as per ICU Family at bedside - updated
--- NOTE | 2022-06-08 17:44 | PC.NURSE ---
FENTANYL 100 MCG GIVEN FOR 7/10 ABDOMINAL PAIN AT 0800, MINIMAL EFFECT NOTED, WITH PATIENT STATING PAIN BEING 6/10 AFTERWARDS. FENTANYL 100 MCG GIVEN FOR 7/10 ABDOMINAL PAIN AT 1320, NO EFFECT NOTED. 1 UNIT OF RBC GIVEN, TOLERATED WELL. VERSED GIVEN FOR PATIENT STATING SHE IS HAVING AN ANXIETY ATTACK , 1MG AT 1030, NO EFFECT NOTED. 0.5 MG GIVEN AT 1452 WITH NO EFFECT NOTED. PATIENT CONTINUES ON PRECEDEX DRIP SEE EMAR. STAGE I PRESSURE INJURY NOTED TO LEFT HIP, PICTURES TAKEN AND DOCUMENTED IN PATIENT CHART. BATHED, REPOSITIONED Q2HR, ORAL CARE AND SUCTIONING PROVIDED ROUTINELY, FAMILY UPDATED ON HEALTH STATUS.
[2022-06-08 17:53] LABS: Glucose, Whole Blood 116 mg/dL (60-115)
--- NOTE | 2022-06-08 18:49 | PC.NURSE ---
Addendum entered by Magali Jimenez RN 06/08/22 18:58: ADMINISTERED PRN RECTAL TYLENOL ORDERED PER CONTROL AND RECOVERY COMBAT RESCUE - SEE EMAR Original Note: DURING 1800 REPOSITION PATIENT NOTED TO BE WARM TO THE TOUCH 102.4 RECTAL TEMP OBTAINED PATIENT PLACED ON COOLING BLANKET CONTROL AND RECOVERY COMBAT RESCUE NOTIFIED
[2022-06-08] MEDS: Acetaminophen Supp 650 MG SUPP.RECT PR (18:56)
[2022-06-08] MEDS: Furosemide 40 MG/4 ML VIAL IVPUSH (23:52)
[2022-06-09] VITALS (34 sets, daily range): BP systolic 117–170; BP diastolic 66–99; PULSE 87–113; RESP 17–46; TEMP 36.7–37.9; O2SAT 89–100; BMI 41.8
[2022-06-09 00:17] LABS: Glucose, Whole Blood 138 mg/dL (60-115)
[2022-06-09] MEDS: metroNIDAZOLE/NS 500 MG/100 ML PIGGYBACK 100 MG IV ×3 (01:36→18:32)
[2022-06-09] MEDS: dexmedeTOMIDidine HCL/NS 400 MCG/100 ML INFUS..BTL 28.55 MCG IVCONT ×4 (01:37→22:56)
[2022-06-09] MEDS: dexmedeTOMIDidine HCL/NS 400 MCG/100 ML INFUS..BTL 42.83 MCG IVCONT ×5 (04:23→13:29)
[2022-06-09] MEDS: Heparin Sodium,Porcine 5,000 UNIT/ML VIAL 5000 UNIT SUBCUT ×3 (04:23→17:54)
[2022-06-09 05:25] LABS: VBG Base Excess 0.9 mmol/L; VBG HCO3 25 mmol/L (22-26); VBG pCO2 41 mmHg; VBG pH 7.39 (7.32-7.43); VBG pO2 45 mmHg
[2022-06-09 05:34] LABS: MANUAL DIFF FLAG NO
[2022-06-09 05:38] LABS: Basophils Absolute Auto 0.1 X10*3/uL (0.0-0.2); Basophils Percent Auto 0.5 % (0-2); Hematocrit 26.1 % (37.0-47.0); Hemoglobin 8.5 g/dl (12.0-16.0); Imm Gran Abs Auto 0.11 X10*3/uL (0.00-0.03); Imm Gran Pct Auto 1.1 % (0.0-0.4); Lymphocytes Absolute Auto 1.3 X10*3/uL (1.2-4.9); Lymphocytes Percent Auto 13.4 % (20-40); Mean Corpuscular HGB Conc 32.6 g/dl (31.0-35.0); Mean Corpuscular Hemoglobin 29.2 pg (27.0-33.0); Mean Corpuscular Volume 89.7 fL (80.0-98.0); Mean Platelet Volume 10.2 fL (9.4-12.3); Monocytes Absolute Auto 0.8 X10*3/uL (0.1-1.2); Monocytes Percent Auto 7.7 % (2-11); Neutrophils Absolute Auto 7.7 x10*3/uL (2.0-8.3); Neutrophils Percent Auto 77.3 % (45-73); Platelet Count 411 X10*3/uL (160-400); Red Blood Count 2.91 X10*6/uL (4.20-5.50); Red Cell Distribution Width 16.6 % (11.0-16.0)
[2022-06-09 05:58] LABS: Alanine Aminotransferase 12 U/L (0-31); Albumin Level 3.2 g/dL (3.5-5.0); Alkaline Phosphatase 61 U/L (39-117); Anion Gap 17 (12-20); Aspartate Amino Transferase 17 U/L (5-31); Bilirubin Total 0.7 mg/dL (0.0-1.0); Blood Urea Nitrogen 30 mg/dL (9-16); Calcium 8.1 mg/dL (8.4-10.2); Carbon Dioxide 26 mmol/L (22-29); Chloride 107 mmol/L (96-108); Creatinine Clr Calc Pharmacy 87.7; Estimated Glomerular Filt Rate > 60; Glucose Random 151 mg/dL (60-115); Phosphorus 4.8 mg/dL (2.7-4.5); Potassium 3.8 mmol/L (3.3-5.1); Sodium 146 mmol/L (135-145); Total Protein 5.7 g/dL (6.5-8.0)
[2022-06-09 05:59] LABS: Glucose, Whole Blood 139 mg/dL (60-115)
[2022-06-09 06:02] LABS: B Type Natriuretic Peptide 2848 pg/mL (<100)
[2022-06-09 06:21] LABS: Venous Blood Gas Refer to POC result
[2022-06-09] MEDS: fentaNYL citrate/NS 1,000 MCG/100 ML PLAST..BAG 15 MCG IVCONT ×3 (06:34→18:33)
[2022-06-09] MEDS: 0.9 % Sodium Chloride Flush 3 ML SYRINGE IVFLUSH ×2 (08:32→15:57)
[2022-06-09] MEDS: Furosemide 40 MG/4 ML VIAL IVPUSH (08:32)
[2022-06-09] MEDS: Nystatin Powder 15 GM BOTTLE 1 APPL TOPICAL ×2 (08:33→20:44)
[2022-06-09] MEDS: Famotidine/PF 20 MG/2 ML VIAL IVPUSH (08:33)
[2022-06-09] MEDS: Albumin Human 25 % 100 ML IV ×3 (08:48→20:45)
--- NOTE | 2022-06-09 09:54 | P.PNGS_ITS ---
Subjective Subjective Date of Service: 06/09/22 Interval history: remains off vent on high flow mental status same - confused, asking for water, answers some questions Physical Exam Vital Signs: Vital Signs: Last Vital Signs Temp 100.0 F 06/09/22 08:00 Pulse 87 06/09/22 09:00 Resp 28 H 06/09/22 09:00 BP 143/84 H 06/09/22 09:00 Pulse Ox 94 06/09/22 09:00 O2 Del Method 06/09/22 09:00 O2 Flow Rate 50 06/09/22 09:00 FiO2 35 06/09/22 09:00 Oxygen Flow Rate 50 06/08/22 18:00 BMI result Body Mass Index 41.8 Const: Other: some shortness of breath Resp: Other: some shortness of breath, on high flow Cardio: Rate: tachycardic GI: Other: soft, stoma with output, all drains in place, not much output Objective Data Active Medications Acetaminophen (Acetaminophen Supp 650 Mg Supp.Rect) 650 mg MO Q6H PRN PRN Reason: Fever Last Admin: 06/08/22 18:56 Dose: 650 mg Documented By: MADALYN Famotidine (Famotidine/Pf 20 Mg/2 Ml Vial) 20 mg IVPUSH DAILY [facility] Last Admin: 06/09/22 08:33 Dose: 20 mg Documented By: JOSE JUAN Fentanyl (Fentanyl Citrate/Pf 100 Mcg/2 Ml Vial) 100 mcg IVPUSH Q1H PRN; Protocol PRN Reason: Pain, Moderate (Pain Scale 4-6 Last Admin: 06/08/22 13:19 Dose: 100 mcg Documented By: DONTRELL Heparin Sodium (Porcine) (Heparin Sodium,Porcine 5,000 Unit/Ml Vial) 5,000 unit SUBCUT Q8H [facility] Last Admin: 06/09/22 04:23 Dose: 5,000 unit Documented By: LUIS Metronidazole (Flagyl) 500 mg in 100 mls @ 100 mls/hr IV Q8H [facility] Last Infusion: 06/09/22 03:11 Dose: 0 mls/hr Documented By: LUIS Meropenem 1 gm/ Sodium (Chloride) 100 mls @ 200 mls/hr IV Q8H [facility] Last Infusion: 06/09/22 03:10 Dose: 0 mls/hr Documented By: LUIS Norepinephrine Bitartrate (Levophed) 8 mg in 250 mls @ 0 mls/hr IVCONT .Q0M [facility]; Protocol Last Titration: 06/08/22 06:45 Dose: 0 mcg/kg/min, 0 mls/hr Documented By: MADALYN Dexmedetomidine HCl (Precedex) 400 mcg in 100 mls @ 0 mls/hr IVCONT .Q0M GAUDENCIO; Protocol Last Admin: 06/09/22 08:53 Dose: 1.5 mcg/kg/hr, 42.83 mls/hr Documented By: JOSE JUAN Fentanyl (Sublimaze/Ns) 1,000 mcg in 100 mls @ 0 mls/hr IVCONT .Q0M GAUDENCIO; Barron col Last Admin: 06/09/22 06:34 Dose: 150 mcg/hr, 15 mls/hr Documented By: LUIS Albumin Human (Kedbumin 25 %) 100 mls @ 100 mls/hr IV Q6H [facility] Stop: 06/10/22 03:14 Last Admin: 06/09/22 08:48 Dose: 100 mls/hr Documented By: JOSE JUAN Insulin Human Lispro (Insulin Lispro 100 Unit/Ml 3 Ml Vial) 0 unit SUBCUT Q6H [facility]; Protocol Last Admin: 06/09/22 06:01 Dose: Not Given Documented By: LUIS Non-Admin Reason: No Insulin Coverage Lamotrigine (Lamotrigine 25 Mg Tablet) 25 mg PO BID [facility] Last Admin: 06/09/22 08:48 Dose: Not Given Documented By: JOSE JUAN Non-Admin Reason: NPO Naloxone HCl (Naloxone Hcl 0.4 Mg/Ml Vial) 0.2 mg IVPUSH Q2M PRN PRN Reason: Excessive sedation or RR < 8 Nystatin (Nystatin Powder 15 Gm Bottle) 1 appl TOPICAL BID [facility]; Protocol Last Admin: 06/09/22 08:33 Dose: 1 appl Documented By: JOSE JUAN Pharmacy Consult (Consult Rx Perform Med Rec) 1 each MISCELLANE ONCE PRN PRN Reason: Consult order Sodium Chloride (0.9 % Sodium Chloride Flush 3 Ml Syringe) 3 ml IVFLUSH QSHIFT [facility] Last Admin: 06/09/22 08:32 Dose: 3 ml Documented By: JOSE JUAN Labs CBC & Chem 7: 06/09/22 05:15 06/09/22 05:15 Labs: Laboratory Results - last 24 hr 06/08/22 06/08/22 06/08/22 06:30 11:41 17:48 MCV MCH MCHC RDW Plt Count MPV Immature Gran % (Auto) Neut % (Auto) Lymph % (Auto) [place] % (Auto) Eos % (Auto) Baso % (Auto) Lymph # (Auto) [place] # (Auto) Eos # (Auto) Baso # (Auto) Abs Immat Gran (auto) Absolute Neuts (auto) Absolute Nucleated RBC Nucleated RBC % (auto) VBG pH VBG pCO2 VBG pO2 VBG HCO3 VBG O2 Saturation VBG Base Excess Anion Gap Estim Creat Clear Calc Estimated GFR POC Glucose 132 H 116 H Random Glucose Calcium Phosphorus Magnesium Total Bilirubin AST ALT Alkaline Phosphatase B-Natriuretic Peptide Total Protein Albumin Crossmatch See Detail 06/09/22 06/09/22 06/09/22 00:13 05:15 05:15 MCV 89.7 MCH 29.2 MCHC 32.6 RDW 16.6 H Plt Count 411 H MPV 10.2 Immature Gran % (Auto) 1.1 H Neut % (Auto) 77.3 H Lymph % (Auto) 13.4 L [place] % (Auto) 7.7 Eos % (Auto) 0.0 Baso % (Auto) 0.5 Lymph # (Auto) 1.3 [place] # (Auto) 0.8 Eos # (Auto) 0.0 Baso # (Auto) 0.1 Abs Immat Gran (auto) 0.11 H Absolute Neuts (auto) 7.7 Absolute Nucleated RBC 0.000 Nucleated RBC % (auto) 0.0 VBG pH VBG pCO2 VBG pO2 VBG HCO3 VBG O2 Saturation VBG Base Excess Anion Gap 17 Estim Creat Clear Calc 87.7 Estimated GFR > 60 POC Glucose 138 H Random Glucose 151 H Calcium 8.1 L Phosphorus 4.8 H Magnesium 2.0 Total Bilirubin 0.7 AST 17 ALT 12 Alkaline Phosphatase 61 B-Natriuretic Peptide Total Protein 5.7 L D Albumin 3.2 L Crossmatch 06/09/22 06/09/22 06/09/22 05:15 05:20 05:55 MCV MCH MCHC RDW Plt Count MPV Immature Gran % (Auto) Neut % (Auto) Lymph % (Auto) [place] % (Auto) Eos % (Auto) Baso % (Auto) Lymph # (Auto) [place] # (Auto) Eos # (Auto) Baso # (Auto) Abs Immat Gran (auto) Absolute Neuts (auto) Absolute Nucleated RBC Nucleated RBC % (auto) VBG pH 7.39 VBG pCO2 41 VBG pO2 45 VBG HCO3 25 VBG O2 Saturation 73.0 VBG Base Excess 0.9 Anion Gap Estim Creat Clear Calc Estimated GFR POC Glucose 139 H Random Glucose Calcium Phosphorus Magnesium Total Bilirubin AST ALT Alkaline Phosphatase B-Natriuretic Peptide 2848 H Total Protein Albumin Crossmatch Microbiology Microbiology Results: Microbiology 06/03/22 15:28 Blood Culture - Final Blood - Subclavian No growth after 5 days. 06/03/22 06:15 Blood Culture - Final Blood - Venous No growth after 5 days. 06/03/22 06:15 Blood Culture - Final Blood - Venous No growth after 5 days. Procedures Date of Service Date of Service: 06/09/22 Arterial Line Size (Gauge): 16 Progress Note: A&P Assessment and plan (1) Perforated viscus: Status: Acute Assessment and Plan: S/P Callie's procedure stoma functioning drains in place; only pelvic drain appears to have purulent output, scanty still confused ok to start clears if not deemed to be high aspiration risk will keep drains in for now making progress family updated Discussed with ICU staff Time Spent With Patient Time: Total time spent is greater than 50% in coordination of care (as documented) at patient's floor/unit and/or counseling patient: Quality Stroke Does the patient have a stroke diagnosis?: No VTE Prior VTE?: No VTE Risk Level:: Medical - moderate - high VTE Device Contraindication: N/A - Device Ordered VTE Drug Contraindication: N/A - Med Ordered
--- NOTE | 2022-06-09 10:15 | MHC.CLN ---
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
--- NOTE | 2022-06-09 11:15 | MHC.SL.SWA ---
Speech Pathologist Impression: Oropharyngeal dysphagia s/p extubation Risk of Aspiration Due to: Medically Fragile Hx of Recent Extubation Weak Cough Dysphasia Diet Status: Start on NDD1/thin Liquid Consistency and Strategies for Safe Swallow: Liquid Intake Recommendation: Thin Liquid Intake Strategies: Small Sips No Straws Liquids by Teaspoon Only Solid Food Consistency: Dietary Recommendations: Pureed (NDD1) (1/2 teaspoon bites) Additional Modifications to Solid Foods: Recommend start on PUREED (NDD1) diet with THIN liquids and pills CRUSHED in PUREE. Puree to be administered by 1/2 teaspoon bites. Pt requires total 1:1 assistance feeding. Ensure oral cavity is clear before presenting more bites. Liquids BY TEASPOON only. Pt to be seated upright at 90 degrees for PO intake. Aspiration precautions apply. Pt must be awake and alert for PO intake. Monitor 02 and monitor for any overt s/s of aspiration. Updated MD, RN, RD by [place] Message of recommendations. Oral Medication Intake: Crushed with Puree Please contact the pharmacy regarding appropriate crushable or liquid drug formulations that are available whenever modified delivery is recommended. Compensatory Strategies and Precautions to be Taken for Safe Swallow: Sitting Upright (90 deg) No Straw Liquids from Spoon Small Bites and Sips Rate of Ingestion Change Oral Check Supervision While Eating and Drinking for Safe Swallow: Total Assistance (1:1) Swallowing Recommended Treatments: Compens. Strategy Educat. Recommendation for Speech: Inpatient Speech Therapy Frequency/Duration: M-F Date Range for Service Req: Timeline to reassess: Softball Umpire Clinican/Clinical Fellow: No Supervisory Statement: I have reviewed and agree with the student/clinical fellow's documentation: N/A Speech Language Pathologist: Majo Grissom M.A., CCC-HAZARDOUS MATERIALS ANALYST
[2022-06-09 12:06] LABS: Glucose, Whole Blood 138 mg/dL (60-115)
--- NOTE | 2022-06-09 13:06 | P.PNCC_ITS ---
Subjective Subjective Date of Service: 06/09/22 Interval History: ICU days 17 for acute hypoxic respiratory failure, sigmoid perforation status post resection, peritonitis 62-year-old lady with underlying history of Crohn's admitted on 05/18/2022 with abdominal discomfort secondary to peritoneal abscess resulting in viscus perforation and peritonitis requiring sigmoid resection with colostomy formation and washout on 05/23/2022 and placement of additional abdominal drains on 05/30/2022. Extubated 06/07/2022. Continues with multiple abdominal drains. No events overnight. Critical Care Time (minutes): 45 Physical Exam Vital Signs: Vital Signs: Last Vital Signs Temp 99.6 F 06/09/22 12:00 Pulse 100 06/09/22 12:00 Resp 29 H 06/09/22 12:00 BP 151/84 H 06/09/22 12:00 Pulse Ox 95 06/09/22 12:00 O2 Del Method 06/09/22 12:00 O2 Flow Rate 50 06/09/22 12:00 FiO2 35 06/09/22 12:00 Oxygen Flow Rate 50 06/08/22 18:00 BMI result Body Mass Index 41.8 Const: General: no acute distress, alert, awake and confusion Nutritional Appearance: obese Orientation/consciousness: confusion Eyes: Sclerae: sclerae normal EOM: EOMs intact bilaterally Neck: Neck: Yes no lymphadenopathy, Yes trachea midline and Yes supple Resp: Effort & Inspection: normal respiratory effort and no respiratory distress Auscultation: clear to auscultation bilaterally Cardio: Rate: regular rate Rhythm: regular rhythm Heart sounds: no gallops, no murmurs and no rubs GI: Inspection: Yes other ( colostomy with output, 5 NOHEMI drains) Palpation (GI): Soft to palpation and Other GI palpation findings present ( Nontender) Auscultation: Hypoactive bowel sounds present Neuro: General: confusion Extrem: General: Yes no pedal edema, No clubbing and No cyanosis Objective Data Labs CBC & Chem 7: 06/09/22 05:15 06/09/22 05:15 Labs: Laboratory Results - last 24 hr 06/08/22 06/09/22 06/09/22 17:48 00:13 05:15 WBC 10.0 RBC 2.91 L D Hgb 8.5 L D Hct 26.1 L D MCV 89.7 MCH 29.2 MCHC 32.6 RDW 16.6 H Plt Count 411 H MPV 10.2 Immature Gran % (Auto) 1.1 H Neut % (Auto) 77.3 H Lymph % (Auto) 13.4 L [place] % (Auto) 7.7 Eos % (Auto) 0.0 Baso % (Auto) 0.5 Lymph # (Auto) 1.3 [place] # (Auto) 0.8 Eos # (Auto) 0.0 Baso # (Auto) 0.1 Abs Immat Gran (auto) 0.11 H Absolute Neuts (auto) 7.7 Absolute Nucleated RBC 0.000 Nucleated RBC % (auto) 0.0 VBG pH VBG pCO2 VBG pO2 VBG HCO3 VBG O2 Saturation VBG Base Excess Sodium Potassium Chloride Carbon Dioxide Anion Gap BUN Creatinine Estim Creat Clear Calc Estimated GFR POC Glucose 116 H 138 H Random Glucose Calcium Phosphorus Magnesium Total Bilirubin AST ALT Alkaline Phosphatase B-Natriuretic Peptide Total Protein Albumin 06/09/22 06/09/22 06/09/22 05:15 05:15 05:20 WBC RBC Hgb Hct MCV MCH MCHC RDW Plt Count MPV Immature Gran % (Auto) Neut % (Auto) Lymph % (Auto) [place] % (Auto) Eos % (Auto) Baso % (Auto) Lymph # (Auto) [place] # (Auto) Eos # (Auto) Baso # (Auto) Abs Immat Gran (auto) Absolute Neuts (auto) Absolute Nucleated RBC Nucleated RBC % (auto) VBG pH 7.39 VBG pCO2 41 VBG pO2 45 VBG HCO3 25 VBG O2 Saturation 73.0 VBG Base Excess 0.9 Sodium 146 H Potassium 3.8 Chloride 107 Carbon Dioxide 26 Anion Gap 17 BUN 30 H Creatinine 0.79 Estim Creat Clear Calc 87.7 Estimated GFR > 60 POC Glucose Random Glucose 151 H Calcium 8.1 L Phosphorus 4.8 H Magnesium 2.0 Total Bilirubin 0.7 AST 17 ALT 12 Alkaline Phosphatase 61 B-Natriuretic Peptide 2848 H Total Protein 5.7 L D Albumin 3.2 L 06/09/22 06/09/22 05:55 12:01 WBC RBC Hgb Hct MCV MCH MCHC RDW Plt Count MPV Immature Gran % (Auto) Neut % (Auto) Lymph % (Auto) [place] % (Auto) Eos % (Auto) Baso % (Auto) Lymph # (Auto) [place] # (Auto) Eos # (Auto) Baso # (Auto) Abs Immat Gran (auto) Absolute Neuts (auto) Absolute Nucleated RBC Nucleated RBC % (auto) VBG pH VBG pCO2 VBG pO2 VBG HCO3 VBG O2 Saturation VBG Base Excess Sodium Potassium Chloride Carbon Dioxide Anion Gap BUN Creatinine Estim Creat Clear Calc Estimated GFR POC Glucose 139 H 138 H Random Glucose Calcium Phosphorus Magnesium Total Bilirubin AST ALT Alkaline Phosphatase B-Natriuretic Peptide Total Protein Albumin Microbiology Microbiology Results: Microbiology 06/03/22 15:28 Blood - Subclavian Blood Culture - Final No growth after 5 days. 06/03/22 06:15 Blood - Venous Blood Culture - Final No growth after 5 days. 06/03/22 06:15 Blood - Venous Blood Culture - Final No growth after 5 days. 06/02/22 Unknown Peritoneal Fluid Gram Stain - Final 06/02/22 Unknown Peritoneal Fluid Routine Culture - Final [place] albicans 06/02/22 Unknown Peritoneal Fluid Anaerobic Culture - Final 06/02/22 Unknown Abscess Intra-abdominal Fungal Identification - Preliminary Culture in progress. 05/29/22 15:14 Blood - Venous Blood Culture - Final No growth after 5 days. 05/29/22 15:13 Blood - Venous Blood Culture - Final No growth after 5 days. 05/29/22 05:14 Blood - Venous Blood Culture - Final No growth after 5 days. 05/29/22 05:14 Blood - Venous Blood Culture - Final No growth after 5 days. 06/02/22 Unknown Abscess Intra-abdominal Gram Stain - Final 06/02/22 Unknown Abscess Intra-abdominal Routine Culture - Final 06/02/22 Unknown Abscess Intra-abdominal Anaerobic Culture - Final 06/02/22 Unknown Abscess Intra-abdominal Gram Stain - Final 06/02/22 Unknown Abscess Intra-abdominal Routine Culture - Final 05/28/22 Unknown Peritoneal Fluid Gram Stain - Final 05/28/22 Unknown Peritoneal Fluid Anaerobic Culture - Final 05/28/22 Unknown Peritoneal Fluid Body Fluid Culture - Final Ver[place]ica dubliniensis 05/29/22 15:05 Sputum - Suctioned Gram Stain - Final 05/29/22 15:05 Sputum - Suctioned Sputum Culture - Final Verónica dubliniensis 05/28/22 16:47 Sputum - Suctioned Gram Stain - Final 05/28/22 16:47 Sputum - Suctioned Sputum Culture - Final [place] albicans 05/23/22 Unknown Peritoneal Fluid Gram Stain - Final 05/23/22 Unknown Peritoneal Fluid Routine Culture - Final Escherichia coli 05/23/22 Unknown Peritoneal Fluid Anaerobic Culture - Final Clostridium perfringens Bacteroides thetaiotaomicron 05/19/22 08:49 Blood - Venous Blood Culture - Final No growth after 5 days. 05/19/22 08:49 Blood - Venous Blood Culture - Final No growth after 5 days. Progress Note: A&P Assessment and plan (1) Acute respiratory failure with hypoxia: Status: Acute (2) Peritonitis: Status: Acute (3) Crohn's disease: Status: Acute (4) Status post colostomy: Status: Acute (5) Ileus following gastrointestinal surgery: Status: Acute (6) Perforated viscus: Status: Acute Plan Assessment: 62-year-old lady with sigmoid perforation resulting peritonitis status post sigmoid resection, colostomy, washout, multiple abdominal collections requiring additional NOHEMI drain placements Plan: Neuro: significant anxiety component, continue to titrate of Precedex as tolerated Cardiac: Septic shock, resolved. Pulmonary: Acute respiratory failure with hypoxia post-op after peritonitis surgery, extubated 06/07/2022. Continue to titrate off supplemental oxygen support as tolerated. Renal: No acute issues. Endo: No acute issues. GI: Sigmoid perforation with peritonitis status post washout and sigmoid resection with colostomy. General surgery and gastroenterology services care appreciated. Further complicated by multiple abdominal collections requiring additional drainage. Ileus is slowly improving. ID: Peritonitis with multiple organisms, continues on meropenem and Flagyl. Heme/Onc: No acute issues. Psych: No acute issues. Miscellaneous: No acute issues. Prophylaxis: famotidine, heparin Diet: Pureed, thin liquids Critical care time spent: 45 minutes Quality Stroke Does the patient have a stroke diagnosis?: No VTE Prior VTE?: No VTE Risk Level:: Medical - moderate - high VTE Device Contraindication: N/A - Device Ordered VTE Drug Contraindication: N/A - Med Ordered
[2022-06-09] MEDS: ondansetron HCL 4 MG/2 ML VIAL IVPUSH (13:53)
--- NOTE | 2022-06-09 15:58 | PC.NURSE ---
pt alert to self, however has episodes of hallucinations. Pt tolerated having sips of water via a a spoon as recommended by speech
[2022-06-09] MEDS: Acetaminophen Supp 650 MG SUPP.RECT PR (16:04)
[2022-06-09 18:13] LABS: Glucose, Whole Blood 147 mg/dL (60-115)
--- NOTE | 2022-06-09 20:21 | PM.GIPN ---
Subjective Subjective Date of Service: 06/09/22 Interval History: more appropriate today Critical Care Time (minutes): 0 Physical Exam Vital Signs: Vital Signs: Last Vital Signs Temp 98.8 F 06/09/22 20:00 Pulse 108 H 06/09/22 20:00 Resp 29 H 06/09/22 20:00 BP 149/82 H 06/09/22 20:00 Pulse Ox 90 L 06/09/22 20:00 O2 Del Method 06/09/22 20:00 O2 Flow Rate 40 06/09/22 20:00 FiO2 35 06/09/22 20:00 Oxygen Flow Rate 50 06/08/22 18:00 BMI result Body Mass Index 41.8 Const: Other: vocalizing coomplaints of nausea GI: Other: abdomen is soft Extrem: Other: edema Objective Data Labs CBC & Chem 7: 06/09/22 05:15 06/09/22 05:15 Procedures Date of Service Date of Service: 06/09/22 Arterial Line Size (Gauge): 16 Progress Note: A&P Assessment and plan (1) Perforated viscus: Status: Acute Plan gradual improvement continues. Time Spent With Patient Time: Total time spent is greater than 50% in coordination of care (as documented) at patient's floor/unit and/or counseling patient: Quality Stroke Does the patient have a stroke diagnosis?: No VTE Prior VTE?: No VTE Risk Level:: Medical - moderate - high VTE Device Contraindication: N/A - Device Ordered VTE Drug Contraindication: N/A - Med Ordered
[2022-06-09 20:44] LABS: Anion Gap 17 (12-20); Blood Urea Nitrogen 30 mg/dL (9-16); Calcium 8.3 mg/dL (8.4-10.2); Carbon Dioxide 26 mmol/L (22-29); Chloride 106 mmol/L (96-108); Creatinine Clr Calc Pharmacy 86.6; Estimated Glomerular Filt Rate > 60; Glucose Random 164 mg/dL (60-115); Potassium 3.3 mmol/L (3.3-5.1); Sodium 146 mmol/L (135-145)
[2022-06-09] MEDS: lamoTRIgine 25 MG TABLET PO (20:44)
[2022-06-09] MEDS: Potassium Chloride/H20 40 MEQ/100 ML PIGGYBACK 50 MEQ IV (22:08)
[2022-06-09] MEDS: Insulin Lispro 100 UNIT/ML 3 ML VIAL SUBCUT (23:45)
[2022-06-10] VITALS (34 sets, daily range): BP systolic 124–183; BP diastolic 70–105; PULSE 101–122; RESP 18–29; TEMP 36.6–37.4; O2SAT 89–97; BMI 41.5
[2022-06-10 00:04] LABS: Glucose, Whole Blood 162 mg/dL (60-115)
[2022-06-10] MEDS: fentaNYL citrate/NS 1,000 MCG/100 ML PLAST..BAG 15 MCG IVCONT ×2 (00:26→06:36)
[2022-06-10] MEDS: metroNIDAZOLE/NS 500 MG/100 ML PIGGYBACK 100 MG IV ×3 (01:21→18:26)
[2022-06-10] MEDS: 0.9 % Sodium Chloride Flush 3 ML SYRINGE IVFLUSH ×3 (01:21→22:36)
[2022-06-10] MEDS: dexmedeTOMIDidine HCL/NS 400 MCG/100 ML INFUS..BTL 28.55 MCG IVCONT ×4 (02:11→22:31)
[2022-06-10] MEDS: Albumin Human 25 % 100 ML IV (02:12)
[2022-06-10] MEDS: Heparin Sodium,Porcine 5,000 UNIT/ML VIAL 5000 UNIT SUBCUT ×3 (03:19→21:10)
[2022-06-10] MEDS: dexmedeTOMIDidine HCL/NS 400 MCG/100 ML INFUS..BTL 34.26 MCG IVCONT (05:16)
[2022-06-10 05:26] LABS: Glucose, Whole Blood 125 mg/dL (60-115)
[2022-06-10 05:32] LABS: VBG HCO3 30 mmol/L (22-26); VBG pCO2 51 mmHg; VBG pH 7.38 (7.32-7.43); VBG pO2 50 mmHg
[2022-06-10 05:34] LABS: Venous Blood Gas Refer to POC result
[2022-06-10 05:43] LABS: Glucose, Whole Blood 132 mg/dL (60-115)
[2022-06-10 05:50] LABS: Basophils Absolute Auto 0.1 X10*3/uL (0.0-0.2); Basophils Percent Auto 0.6 % (0-2); Eosinophils Percent Auto 0.4 % (0-4); Hematocrit 25.8 % (37.0-47.0); Hemoglobin 8.1 g/dl (12.0-16.0); Imm Gran Abs Auto 0.09 X10*3/uL (0.00-0.03); Imm Gran Pct Auto 0.9 % (0.0-0.4); LEFT SHIFT? 1; Lymphocytes Absolute Auto 1.4 X10*3/uL (1.2-4.9); Lymphocytes Percent Auto 14.1 % (20-40); Mean Corpuscular HGB Conc 31.4 g/dl (31.0-35.0); Mean Corpuscular Hemoglobin 28.9 pg (27.0-33.0); Mean Corpuscular Volume 92.1 fL (80.0-98.0); Mean Platelet Volume 10.3 fL (9.4-12.3); Monocytes Absolute Auto 0.9 X10*3/uL (0.1-1.2); Monocytes Percent Auto 8.6 % (2-11); Neutrophils Absolute Auto 7.5 x10*3/uL (2.0-8.3); Neutrophils Percent Auto 75.4 % (45-73); Platelet Count 432 X10*3/uL (160-400); Red Cell Distribution Width 16.7 % (11.0-16.0)
[2022-06-10 05:51] LABS: MANUAL DIFF FLAG SCAN
[2022-06-10 06:04] LABS: Anion Gap 15 (12-20); Blood Urea Nitrogen 28 mg/dL (9-16); Calcium 8.3 mg/dL (8.4-10.2); Carbon Dioxide 29 mmol/L (22-29); Chloride 110 mmol/L (96-108); Creatinine Clr Calc Pharmacy 97.6; Estimated Glomerular Filt Rate > 60; Glucose Random 135 mg/dL (60-115); Magnesium 1.8 mg/dL (1.6-2.6); Phosphorus 3.5 mg/dL (2.7-4.5); Potassium 4.1 mmol/L (3.3-5.1); Sodium 150 mmol/L (135-145)
[2022-06-10 06:36] LABS: SLIDE REVIEW VERIFIED
[2022-06-10] MEDS: dexmedeTOMIDidine HCL/NS 400 MCG/100 ML INFUS..BTL 42.83 MCG IVCONT (07:55)
[2022-06-10] MEDS: Nystatin Powder 15 GM BOTTLE 1 APPL TOPICAL ×2 (08:00→21:16)
[2022-06-10] MEDS: Famotidine/PF 20 MG/2 ML VIAL IVPUSH (08:00)
[2022-06-10] MEDS: lamoTRIgine 25 MG TABLET PO ×2 (08:00→21:12)
--- NOTE | 2022-06-10 09:17 | PM.PNGS ---
Subjective Subjective Date of Service: 06/10/22 Interval history: Awake and talking, reports some abdominal pain. Not hungry Physical Exam Vital Signs: Vital Signs: Last Vital Signs Temp 99.4 F 06/10/22 08:00 Pulse 115 H 06/10/22 09:00 Resp 20 06/10/22 09:00 BP 149/92 H 06/10/22 09:00 Pulse Ox 92 06/10/22 09:00 O2 Del Method 06/10/22 09:00 O2 Flow Rate 40 06/10/22 09:00 FiO2 35 06/10/22 09:00 Oxygen Flow Rate 50 06/08/22 18:00 BMI result Body Mass Index 41.5 Const: General: no acute distress Nutritional Appearance: overweight Orientation/consciousness: oriented to person Resp: Other: Rapid shallow breathing Effort & Inspection: uses accessory muscles GI: Other: Incisions intact, ostomy patent with stool. NOHEMI drains with serous discharge scant Neuro: General: oriented to person Objective Data Active Medications Acetaminophen (Acetaminophen Supp 650 Mg Supp.Rect) 650 mg MD Q6H PRN PRN Reason: Fever Last Admin: 06/09/22 16:04 Dose: 650 mg Documented By: JOSE JUAN Famotidine (Famotidine/Pf 20 Mg/2 Ml Vial) 20 mg IVPUSH DAILY [facility] Last Admin: 06/10/22 08:00 Dose: 20 mg Documented By: RONAK Fentanyl (Fentanyl Citrate/Pf 100 Mcg/2 Ml Vial) 100 mcg IVPUSH Q1H PRN; Protocol PRN Reason: Pain, Moderate (Pain Scale 4-6 Last Admin: 06/08/22 13:19 Dose: 100 mcg Documented By: DONTRELL Heparin Sodium (Porcine) (Heparin Sodium,Porcine 5,000 Unit/Ml Vial) 5,000 unit SUBCUT Q8H [facility] Last Admin: 06/10/22 03:19 Dose: 5,000 unit Documented By: JENNIFER Metronidazole (Flagyl) 500 mg in 100 mls @ 100 mls/hr IV Q8H [facility] Last Infusion: 06/10/22 02:40 Dose: 0 mls/hr Documented By: JENNIFER Meropenem 1 gm/ Sodium (Chloride) 100 mls @ 200 mls/hr IV Q8H [facility] Last Infusion: 06/10/22 02:12 Dose: 0 mls/hr Documented By: JENNIFER Norepinephrine Bitartrate (Levophed) 8 mg in 250 mls @ 0 mls/hr IVCONT .Q0M [facility]; Protocol Last Titration: 06/08/22 06:45 Dose: 0 mcg/kg/min, 0 mls/hr Documented By: MADALYN Dexmedetomidine HCl (Precedex) 400 mcg in 100 mls @ 0 mls/hr IVCONT .Q0M [facility]; Protocol Last Admin: 06/10/22 07:55 Dose: 1.5 mcg/kg/hr, 42.83 mls/hr Documented By: RONAK Fentanyl (Sublimaze/Ns) 1,000 mcg in 100 mls @ 0 mls/hr IVCONT .Q0M [facility]; Protocol Last Admin: 06/10/22 06:36 Dose: 150 mcg/hr, 15 mls/hr Documented By: JENNIFER Insulin Human Lispro (Insulin Lispro 100 Unit/Ml 3 Ml Vial) 0 unit SUBCUT Q6H [facility]; Protocol Last Admin: 06/10/22 06:00 Dose: Not Given Documented By: JENNIFER Non-Admin Reason: No Insulin Coverage Lamotrigine (Lamotrigine 25 Mg Tablet) 25 mg PO BID [facility] Last Admin: 06/10/22 08:00 Dose: 25 mg Documented By: RONAK Naloxone HCl (Naloxone Hcl 0.4 Mg/Ml Vial) 0.2 mg IVPUSH Q2M PRN PRN Reason: Excessive sedation or RR < 8 Nystatin (Nystatin Powder 15 Gm Bottle) 1 appl TOPICAL BID [facility]; Protocol Last Admin: 06/10/22 08:00 Dose: 1 appl Documented By: RONAK Ondansetron HCl (Ondansetron Hcl 4 Mg/2 Ml Vial) 4 mg IVPUSH Q6H PRN PRN Reason: Nausea Last Admin: 06/09/22 13:53 Dose: 4 mg Documented By: JOSE JUAN Pharmacy Consult (Consult Rx Perform Med Rec) 1 each MISCELLANE ONCE PRN PRN Reason: Consult order Sodium Chloride (0.9 % Sodium Chloride Flush 3 Ml Syringe) 3 ml IVFLUSH QSHIFT [facility] Last Admin: 06/10/22 07:57 Dose: 3 ml Documented By: RONAK Labs CBC & Chem 7: 06/10/22 05:15 06/10/22 05:15 Labs: Laboratory Results - last 24 hr 06/09/22 06/09/22 06/09/22 12:01 18:09 20:14 MCV MCH MCHC RDW Plt Count MPV Immature Gran % (Auto) Neut % (Auto) Lymph % (Auto) [place] % (Auto) Eos % (Auto) Baso % (Auto) Lymph # (Auto) [place] # (Auto) Eos # (Auto) Baso # (Auto) Abs Immat Gran (auto) Absolute Neuts (auto) Absolute Nucleated RBC Nucleated RBC % (auto) Smear Tech's Comments VBG pH VBG pCO2 VBG pO2 VBG HCO3 VBG O2 Saturation VBG Base Excess Anion Gap 17 Estim Creat Clear Calc 86.6 Estimated GFR > 60 POC Glucose 138 H 147 H Random Glucose 164 H Calcium 8.3 L Phosphorus Magnesium Albumin 06/09/22 06/10/22 06/10/22 23:32 05:15 05:15 MCV 92.1 MCH 28.9 MCHC 31.4 RDW 16.7 H Plt Count 432 H MPV 10.3 Immature Gran % (Auto) 0.9 H Neut % (Auto) 75.4 H Lymph % (Auto) 14.1 L [place] % (Auto) 8.6 Eos % (Auto) 0.4 Baso % (Auto) 0.6 Lymph # (Auto) 1.4 [place] # (Auto) 0.9 Eos # (Auto) 0.0 Baso # (Auto) 0.1 Abs Immat Gran (auto) 0.09 H Absolute Neuts (auto) 7.5 Absolute Nucleated RBC 0.000 Nucleated RBC % (auto) 0.0 Smear Tech's Comments VERIFIED VBG pH VBG pCO2 VBG pO2 VBG HCO3 VBG O2 Saturation VBG Base Excess Anion Gap 15 Estim Creat Clear Calc 97.6 Estimated GFR > 60 POC Glucose 162 H Random Glucose 135 H Calcium 8.3 L Phosphorus 3.5 Magnesium 1.8 Albumin 4.0 D 06/10/22 06/10/22 06/10/22 05:21 05:26 05:37 MCV MCH MCHC RDW Plt Count MPV Immature Gran % (Auto) Neut % (Auto) Lymph % (Auto) [place] % (Auto) Eos % (Auto) Baso % (Auto) Lymph # (Auto) [place] # (Auto) Eos # (Auto) Baso # (Auto) Abs Immat Gran (auto) Absolute Neuts (auto) Absolute Nucleated RBC Nucleated RBC % (auto) Smear Tech's Comments VBG pH 7.38 VBG pCO2 51 VBG pO2 50 VBG HCO3 30 H VBG O2 Saturation 77.0 VBG Base Excess 5.0 Anion Gap Estim Creat Clear Calc Estimated GFR POC Glucose 125 H 132 H Random Glucose Calcium Phosphorus Magnesium Albumin Procedures Date of Service Date of Service: 06/10/22 Arterial Line Size (Gauge): 16 Progress Note: A&P Assessment and plan (1) Perforated viscus: Status: Acute Assessment and Plan: S/P Callie's procedure, abdomen mildly distended but stoma functioning. NOHEMI drains with scant serous fluid. will keep drains in for now making progress Time Spent With Patient Time: Total time spent is greater than 50% in coordination of care (as documented) at patient's floor/unit and/or counseling patient: Quality Stroke Does the patient have a stroke diagnosis?: No VTE Prior VTE?: No VTE Risk Level:: Medical - moderate - high VTE Device Contraindication: N/A - Device Ordered VTE Drug Contraindication: N/A - Med Ordered
[2022-06-10 09:35] LABS: Venous Blood Gas Refer to POC result
[2022-06-10 09:35] LABS: VBG Base Excess 2.8 mmol/L; VBG HCO3 28 mmol/L (22-26); VBG pCO2 50 mmHg; VBG pH 7.36 (7.32-7.43); VBG pO2 65 mmHg
[2022-06-10] MEDS: Furosemide 40 MG/4 ML VIAL IVPUSH (09:46)
[2022-06-10] MEDS: Dextrose 5 % 1,000 ML 100 ML IVCONT ×2 (10:02→21:14)
[2022-06-10] MEDS: Magnesium Sulfate/H2O 2 GM/50 ML PIGGYBACK IV (10:23)
[2022-06-10] MEDS: Furosemide 200 MG in 0.9 % Sodium Chloride 80 ML IVCONT (10:35)
[2022-06-10 11:54] LABS: Glucose, Whole Blood 145 mg/dL (60-115)
[2022-06-10] MEDS: fentaNYL citrate/NS 1,000 MCG/100 ML PLAST..BAG 10 MCG IVCONT ×3 (13:32→23:04)
--- NOTE | 2022-06-10 14:48 | PM.CCPN ---
Subjective Subjective Date of Service: 06/10/22 Interval History: Mrs. Hankins was transferred to the ICU on May 23 directly from the OR after emergency sigmoid resection and colostomy for perforated viscus. The patient is a 62 year old female with history of Crohn's disease who presented to the ED May 18 complaining of 2 weeks of abdominal pain.? She?d been treated during that time with prednisone for a presumed Crohn?s flare.? On the morning of presentation, she developed sudden onset of sharp abdom pain.? Initial CT scan suggested severe constipation and a question of partial obstruction with worsening severe colitis of the sigmoid colon and proctitis, with increased wall thickening.? There was no evidence of free air.? She was treated with opiates and Zosyn.? The patient was admitted to Medicine and started on systemic steroids. ?Lactic acid was normal on May 19. The patient had no relief with tx.? She therefore underwent flex sig by Dr. Peralta on May 23 at which he found a large abscess cavity in the sigmoid with some associated ulceration, stool, and a second area of ulceration, which was biopsied.? Post procedure the patient had significant worsening of her abdominal exam; stat ct showed free air and fluid with a pelvic abscess. ?She was taken directly to the OR. At laparotomy, found a large perforation in the distal sigmoid, with two large stool balls immediately adjacent to the perforation.? There was extensive peritoneal fecal soilage, w marked indurated peritonitis especially in the pelvis, with the sigmoid covered in thick inflammatory rind.? She underwent extensive lysis of adhesions, sigmoid resection and colostomy, and abdominal washout.? The anesthetic course was marked by progressive septic shock.? The abdomen was closed and the patient was brought out intubated to ICU. On arrival to the ICU, the patient was in deep shock, and markedly hypovolemic.? Echo showed normal right and left heart, with hyperdynamic function and small IVC.? The patient was volume resuscitated, with excellent hemodynamic response.? A central line and arterial line were placed.? The patient was continued on Meropenam. The patient had a somewhat brook course since then.? Here renal indices lakshmi, but creat peaked at 1.7 on May 25.? She developed fever and multiple intraabdominal abscesses and had mult drains placed in IR:? In the left upper quadrant on 05/30, the pelvis on 05/30, the right lateral abdomen 06/02, and the left paracolic gutter on 06/02.? Flagyl was added to meropnenam.? Subsequently she?s been improving slowly.? She was put on TPN.? The colostomy started putting out fecal material.? She was extubated on 06/07.? Since then has some anxiety and mild ICU encephalopathy.? She has mild ICU myopathy. This morning the patient was fully awake and alert, but grossly confused. ?She?s on fentanyl and precede infusions.? Just a hint of WOB on HFNC 40L/35%, w SPO2 92-93%.? This morning?s CVBG showed 7.36/50/+2.? HR 110?s, SR.? BP 140-180/90?s.? Afebrile.? No JVD at 40?.? Chest excursion is a bit shallow.? A few scattered dry crackles on auscultation.? Normal expiratory phase.? Heart tones are soft, I heard no murmur or gallops.? The abdomen is mildly rotund, possibly mildly distended, with good bowel sounds.? The stoma looks good w some stool.? NOHEMI drains mostly serous.? 1-2+ anasarca. LABORATORY DATA: ?Below.? Notably, Sodium 150, BUN/creat 28/0.7, alb 4.0. IMPRESSION: 1. Underlying obesity. 2. Perforated viscus w fecal peritonitis.? Obviously not acute.? Suspect she perforated the morning of admission when she had sudden onset pain.? The pathology report shows no evidence of Crohn?s.? Mult drains output is mostly serous. 3. Septic shock.? 2? above.? Resolved. 4. Tachycardia.? Likely SIRS. 5. Acute resp failure.? Still has some increased WOB, plus substantial systemic edema.? Started her on a Lasix drip. 6. SABINE.? 2? septic shock.? Resolving. 7. ID:? On meropenem and flagyl.? Afebrile with normal WBC.? Will plan two more days of abx, and d/w Dr. 8. IV sedation:? Has been on Precedex and fentanyl gtts.? Plan taper to off.? Use Dilaudid for pain.? I?ll write for anxiety meds if she needs. 9. Anemia.? Phelebotomies and not making red cells. 10. Hyperglycemia.? SS insulin. 11. Mild ICU myopathy. 12. Nutrition.? I put a Kaofeed tube in.? We?ll start enteral feeds. 13. DVT prophylaxis:? Compression therapy, and SQ heparin. Discussed current condition and treatment w her at the bedside. Critical care time (including full chart rev and hospital course summary):? 80+ min. Critical Care Time (minutes): 80 Physical Exam Vital Signs: Vital Signs: Last Vital Signs Temp 97.8 F 06/10/22 13:00 Pulse 108 H 06/10/22 14:10 Resp 27 H 06/10/22 14:10 BP 150/79 H 06/10/22 14:10 Pulse Ox 94 06/10/22 14:10 O2 Del Method 06/10/22 14:00 O2 Flow Rate 40 06/10/22 14:00 FiO2 35 06/10/22 14:00 Oxygen Flow Rate 50 06/08/22 18:00 BMI result Body Mass Index 41.5 Objective Data Labs CBC & Chem 7: 06/11/22 05:20 06/11/22 05:20 Labs: Laboratory Results - last 24 hr 06/09/22 06/09/22 06/09/22 18:09 20:14 23:32 WBC RBC Hgb Hct MCV MCH MCHC RDW Plt Count MPV Immature Gran % (Auto) Neut % (Auto) Lymph % (Auto) [place] % (Auto) Eos % (Auto) Baso % (Auto) Lymph # (Auto) [place] # (Auto) Eos # (Auto) Baso # (Auto) Abs Immat Gran (auto) Absolute Neuts (auto) Absolute Nucleated RBC Nucleated RBC % (auto) Smear Tech's Comments VBG pH VBG pCO2 VBG pO2 VBG HCO3 VBG O2 Saturation VBG Base Excess Sodium 146 H Potassium 3.3 Chloride 106 Carbon Dioxide 26 Anion Gap 17 BUN 30 H Creatinine 0.80 Estim Creat Clear Calc 86.6 Estimated GFR > 60 POC Glucose 147 H 162 H Random Glucose 164 H Calcium 8.3 L Phosphorus Magnesium Albumin 06/10/22 06/10/22 06/10/22 05:15 05:15 05:21 WBC 10.0 RBC 2.80 L Hgb 8.1 L Hct 25.8 L MCV 92.1 MCH 28.9 MCHC 31.4 RDW 16.7 H Plt Count 432 H MPV 10.3 Immature Gran % (Auto) 0.9 H Neut % (Auto) 75.4 H Lymph % (Auto) 14.1 L [place] % (Auto) 8.6 Eos % (Auto) 0.4 Baso % (Auto) 0.6 Lymph # (Auto) 1.4 [place] # (Auto) 0.9 Eos # (Auto) 0.0 Baso # (Auto) 0.1 Abs Immat Gran (auto) 0.09 H Absolute Neuts (auto) 7.5 Absolute Nucleated RBC 0.000 Nucleated RBC % (auto) 0.0 Smear Tech's Comments VERIFIED VBG pH VBG pCO2 VBG pO2 VBG HCO3 VBG O2 Saturation VBG Base Excess Sodium 150 H Potassium 4.1 D Chloride 110 H Carbon Dioxide 29 Anion Gap 15 BUN 28 H Creatinine 0.71 Estim Creat Clear Calc 97.6 Estimated GFR > 60 POC Glucose 125 H Random Glucose 135 H Calcium 8.3 L Phosphorus 3.5 Magnesium 1.8 Albumin 4.0 D 06/10/22 06/10/22 06/10/22 05:26 05:37 09:30 WBC RBC Hgb Hct MCV MCH MCHC RDW Plt Count MPV Immature Gran % (Auto) Neut % (Auto) Lymph % (Auto) [place] % (Auto) Eos % (Auto) Baso % (Auto) Lymph # (Auto) [place] # (Auto) Eos # (Auto) Baso # (Auto) Abs Immat Gran (auto) Absolute Neuts (auto) Absolute Nucleated RBC Nucleated RBC % (auto) Smear Tech's Comments VBG pH 7.38 7.36 VBG pCO2 51 50 VBG pO2 50 65 VBG HCO3 30 H 28 H VBG O2 Saturation 77.0 93.0 VBG Base Excess 5.0 2.8 Sodium Potassium Chloride Carbon Dioxide Anion Gap BUN Creatinine Estim Creat Clear Calc Estimated GFR POC Glucose 132 H Random Glucose Calcium Phosphorus Magnesium Albumin 06/10/22 11:45 WBC RBC Hgb Hct MCV MCH MCHC RDW Plt Count MPV Immature Gran % (Auto) Neut % (Auto) Lymph % (Auto) [place] % (Auto) Eos % (Auto) Baso % (Auto) Lymph # (Auto) [place] # (Auto) Eos # (Auto) Baso # (Auto) Abs Immat Gran (auto) Absolute Neuts (auto) Absolute Nucleated RBC Nucleated RBC % (auto) Smear Tech's Comments VBG pH VBG pCO2 VBG pO2 VBG HCO3 VBG O2 Saturation VBG Base Excess Sodium Potassium Chloride Carbon Dioxide Anion Gap BUN Creatinine Estim Creat Clear Calc Estimated GFR POC Glucose 145 H Random Glucose Calcium Phosphorus Magnesium Albumin Microbiology Microbiology Results: Microbiology 06/03/22 15:28 Blood - Subclavian Blood Culture - Final No growth after 5 days. 06/03/22 06:15 Blood - Venous Blood Culture - Final No growth after 5 days. 06/03/22 06:15 Blood - Venous Blood Culture - Final No growth after 5 days. 06/02/22 Unknown Peritoneal Fluid Gram Stain - Final 06/02/22 Unknown Peritoneal Fluid Routine Culture - Final Ver[place]ica albicans 06/02/22 Unknown Peritoneal Fluid Anaerobic Culture - Final 06/02/22 Unknown Abscess Intra-abdominal Fungal Identification - Preliminary Culture in progress. 05/29/22 15:14 Blood - Venous Blood Culture - Final No growth after 5 days. 05/29/22 15:13 Blood - Venous Blood Culture - Final No growth after 5 days. 05/29/22 05:14 Blood - Venous Blood Culture - Final No growth after 5 days. 05/29/22 05:14 Blood - Venous Blood Culture - Final No growth after 5 days. 06/02/22 Unknown Abscess Intra-abdominal Gram Stain - Final 06/02/22 Unknown Abscess Intra-abdominal Routine Culture - Final 06/02/22 Unknown Abscess Intra-abdominal Anaerobic Culture - Final 06/02/22 Unknown Abscess Intra-abdominal Gram Stain - Final 06/02/22 Unknown Abscess Intra-abdominal Routine Culture - Final 05/28/22 Unknown Peritoneal Fluid Gram Stain - Final 05/28/22 Unknown Peritoneal Fluid Anaerobic Culture - Final 05/28/22 Unknown Peritoneal Fluid Body Fluid Culture - Final Verónica dubliniensis 05/29/22 15:05 Sputum - Suctioned Gram Stain - Final 05/29/22 15:05 Sputum - Suctioned Sputum Culture - Final Verónica dubliniensis 05/28/22 16:47 Sputum - Suctioned Gram Stain - Final 05/28/22 16:47 Sputum - Suctioned Sputum Culture - Final Ver[place]ica albicans 05/23/22 Unknown Peritoneal Fluid Gram Stain - Final 05/23/22 Unknown Peritoneal Fluid Routine Culture - Final Escherichia coli 05/23/22 Unknown Peritoneal Fluid Anaerobic Culture - Final Clostridium perfringens Bacteroides thetaiotaomicron 05/19/22 08:49 Blood - Venous Blood Culture - Final No growth after 5 days. 05/19/22 08:49 Blood - Venous Blood Culture - Final No growth after 5 days. Quality Stroke Does the patient have a stroke diagnosis?: No VTE Prior VTE?: No VTE Risk Level:: Medical - moderate - high VTE Device Contraindication: N/A - Device Ordered VTE Drug Contraindication: N/A - Med Ordered Critical Care Time Critical Care Time (minutes): 90
[2022-06-10] MEDS: dexmedeTOMIDidine HCL/NS 400 MCG/100 ML INFUS..BTL 22.84 MCG IVCONT (17:58)
[2022-06-10 18:16] LABS: Glucose, Whole Blood 214 mg/dL (60-115)
[2022-06-10] MEDS: Insulin Lispro 100 UNIT/ML 3 ML VIAL SUBCUT (18:28)
[2022-06-10 19:42] LABS: Anion Gap 17 (12-20); Blood Urea Nitrogen 23 mg/dL (9-16); Calcium 7.9 mg/dL (8.4-10.2); Carbon Dioxide 30 mmol/L (22-29); Chloride 103 mmol/L (96-108); Creatinine Clr Calc Pharmacy 90.7; Estimated Glomerular Filt Rate > 60; Glucose Random 217 mg/dL (60-115); Potassium 3.7 mmol/L (3.3-5.1); Sodium 146 mmol/L (135-145)
[2022-06-10] MEDS: Potassium Chloride/H20 40 MEQ/100 ML PIGGYBACK 50 MEQ IV (21:05)
[2022-06-10] MEDS: ondansetron HCL 4 MG/2 ML VIAL IVPUSH (22:31)
[2022-06-11] VITALS (33 sets, daily range): BP systolic 114–171; BP diastolic 63–91; PULSE 93–131; RESP 18–34; TEMP 36.9–37.7; O2SAT 92–97; BMI 41.4
[2022-06-11 00:43] LABS: Glucose, Whole Blood 164 mg/dL (60-115)
[2022-06-11] MEDS: dexmedeTOMIDidine HCL/NS 400 MCG/100 ML INFUS..BTL 28.55 MCG IVCONT (01:23)
[2022-06-11] MEDS: metroNIDAZOLE/NS 500 MG/100 ML PIGGYBACK 100 MG IV ×3 (01:28→17:04)
[2022-06-11] MEDS: Heparin Sodium,Porcine 5,000 UNIT/ML VIAL 5000 UNIT SUBCUT ×3 (03:31→20:21)
[2022-06-11] MEDS: dexmedeTOMIDidine HCL/NS 400 MCG/100 ML INFUS..BTL 22.84 MCG IVCONT (04:53)
[2022-06-11 05:23] LABS: VBG Base Excess 12.9 mmol/L; VBG HCO3 38 mmol/L (22-26); VBG pCO2 55 mmHg; VBG pH 7.44 (7.32-7.43); VBG pO2 44 mmHg
[2022-06-11 05:41] LABS: Hematocrit 26.8 % (37.0-47.0); Hemoglobin 8.3 g/dl (12.0-16.0); Mean Corpuscular Hemoglobin 28.5 pg (27.0-33.0); Mean Corpuscular Volume 92.1 fL (80.0-98.0); Mean Platelet Volume 10.2 fL (9.4-12.3); Platelet Count 419 X10*3/uL (160-400); Red Blood Count 2.91 X10*6/uL (4.20-5.50); Red Cell Distribution Width 16.3 % (11.0-16.0); White Blood Count 11.6 X10*3/uL (4.8-10.8)
[2022-06-11 05:43] LABS: Glucose, Whole Blood 168 mg/dL (60-115)
[2022-06-11 05:49] LABS: Venous Blood Gas Refer to POC result
[2022-06-11] MEDS: Insulin Lispro 100 UNIT/ML 3 ML VIAL SUBCUT ×2 (05:58→11:41)
[2022-06-11 06:00] LABS: Albumin Level 3.3 g/dL (3.5-5.0); Anion Gap 14 (12-20); Blood Urea Nitrogen 18 mg/dL (9-16); Calcium 7.6 mg/dL (8.4-10.2); Carbon Dioxide 32 mmol/L (22-29); Chloride 98 mmol/L (96-108); Estimated Glomerular Filt Rate > 60; Glucose Random 177 mg/dL (60-115); Magnesium 1.6 mg/dL (1.6-2.6); Phosphorus 2.6 mg/dL (2.7-4.5); Potassium 3.5 mmol/L (3.3-5.1); Sodium 140 mmol/L (135-145)
[2022-06-11 06:37] LABS: Procalcitonin 1.61 ng/mL
[2022-06-11] MEDS: Dextrose 5 % 1,000 ML 100 ML IVCONT (07:11)
[2022-06-11] MEDS: Potassium Phosphate/NS 15 MMOL/250 ML PLAST..BAG 62.5 MMOL IV (07:13)
[2022-06-11] MEDS: lamoTRIgine 25 MG TABLET PO ×2 (07:13→20:22)
[2022-06-11] MEDS: Famotidine/PF 20 MG/2 ML VIAL IVPUSH (07:13)
[2022-06-11] MEDS: 0.9 % Sodium Chloride Flush 3 ML SYRINGE IVFLUSH ×2 (07:13→14:21)
[2022-06-11] MEDS: Magnesium Sulfate/H2O 2 GM/50 ML PIGGYBACK IV (07:13)
[2022-06-11] MEDS: Nystatin Powder 15 GM BOTTLE 1 APPL TOPICAL ×2 (07:20→20:22)
[2022-06-11] MEDS: fentaNYL citrate/NS 1,000 MCG/100 ML PLAST..BAG 7.5 MCG IVCONT ×2 (08:39→20:18)
[2022-06-11] MEDS: dexmedeTOMIDidine HCL/NS 400 MCG/100 ML INFUS..BTL 19.99 MCG IVCONT (08:42)
[2022-06-11] MEDS: Furosemide 200 MG in 0.9 % Sodium Chloride 80 ML IVCONT (08:49)
--- NOTE | 2022-06-11 09:07 | P.PNGS_ITS ---
Subjective Subjective Date of Service: 06/11/22 Interval history: No new complaints. Getting washed up. Reports some mild abdominal pain. Physical Exam Vital Signs: Vital Signs: Last Vital Signs Temp 99.8 F 06/11/22 08:00 Pulse 116 H 06/11/22 08:00 Resp 27 H 06/11/22 08:35 BP 152/82 H 06/11/22 08:00 Pulse Ox 94 06/11/22 08:00 O2 Del Method 06/11/22 08:00 O2 Flow Rate 40 06/11/22 08:00 FiO2 35 06/11/22 08:00 Oxygen Flow Rate 40 06/10/22 21:32 BMI result Body Mass Index 41.4 Const: General: no acute distress Nutritional Appearance: overweight Orientation/consciousness: oriented to person Resp: Other: Rapid shallow breathing Effort & Inspection: uses accessory muscles GI: Other: Incisions intact, ostomy patent with small amount stool. NOHEMI drains with serous discharge scant, left drains somewhat more feculent appearing Neuro: General: oriented to person Objective Data Active Medications Famotidine (Famotidine/Pf 20 Mg/2 Ml Vial) 20 mg IVPUSH DAILY [facility] Last Admin: 06/11/22 07:13 Dose: 20 mg Documented By: KEIRA Fentanyl (Fentanyl Citrate/Pf 100 Mcg/2 Ml Vial) 100 mcg IVPUSH Q1H PRN; Protocol PRN Reason: Pain, Moderate (Pain Scale 4-6 Last Admin: 06/08/22 13:19 Dose: 100 mcg Documented By: DONTRELL Heparin Sodium (Porcine) (Heparin Sodium,Porcine 5,000 Unit/Ml Vial) 5,000 unit SUBCUT Q8H [facility] Last Admin: 06/11/22 03:31 Dose: 5,000 unit Documented By: MARIAJOSE Metronidazole (Flagyl) 500 mg in 100 mls @ 100 mls/hr IV Q8H [facility] Last Infusion: 06/11/22 02:49 Dose: 0 mls/hr Documented By: MARIAJOSE Meropenem 1 gm/ Sodium (Chloride) 100 mls @ 200 mls/hr IV Q8H [facility] Last Infusion: 06/11/22 02:49 Dose: 0 mls/hr Documented By: MARIAJOSE Dexmedetomidine HCl (Precedex) 400 mcg in 100 mls @ 0 mls/hr IVCONT .Q0M [facility]; Protocol Last Admin: 06/11/22 08:42 Dose: 0.7 mcg/kg/hr, 19.99 mls/hr Documented By: KEIRA Fentanyl (Sublimaze/Ns) 1,000 mcg in 100 mls @ 0 mls/hr IVCONT .Q0M [facility]; Protocol Last Admin: 06/11/22 08:39 Dose: 75 mcg/hr, 7.5 mls/hr Documented By: KEIRA Furosemide 200 mg/ Sodium (Chloride) 100 mls @ 2 mls/hr IVCONT .Q24H [facility] Last Admin: 06/11/22 08:49 Dose: 3 mg/hr, 1.5 mls/hr Documented By: KEIRA Dextrose (D5w) 1,000 mls @ 100 mls/hr IVCONT .Q10H [facility] Last Admin: 06/11/22 07:11 Dose: 100 mls/hr Documented By: KEIRA Potassium Phosphate (Kphos) 15 mmol in 250 mls @ 62.5 mls/hr IV ONCE ONE Stop: 06/11/22 11:59 Last Admin: 06/11/22 07:13 Dose: 62.5 mls/hr Documented By: KEIRA Magnesium Sulfate (Magnesium Sulfate/H2o) 2 gm in 50 mls @ 25 mls/hr IV ONCE ONE Stop: 06/11/22 09:59 Last Admin: 06/11/22 07:13 Dose: 25 mls/hr Documented By: KEIRA Insulin Human Lispro (Insulin Lispro 100 Unit/Ml 3 Ml Vial) 0 unit SUBCUT Q6H [facility]; Protocol Last Admin: 06/11/22 05:58 Dose: 2 unit Documented By: MARIAJOSE Lamotrigine (Lamotrigine 25 Mg Tablet) 25 mg PO BID [facility] Last Admin: 06/11/22 07:13 Dose: 25 mg Documented By: KEIRA Nystatin (Nystatin Powder 15 Gm Bottle) 1 appl TOPICAL BID [facility]; Protocol Last Admin: 06/11/22 07:20 Dose: 1 appl Documented By: KEIRA Ondansetron HCl (Ondansetron Hcl 4 Mg/2 Ml Vial) 4 mg IVPUSH Q6H PRN PRN Reason: Nausea Last Admin: 06/10/22 22:31 Dose: 4 mg Documented By: MARIAJOSE Pharmacy Consult (Consult Rx Perform Med Rec) 1 each MISCELLANE ONCE PRN PRN Reason: Consult order Sodium Chloride (0.9 % Sodium Chloride Flush 3 Ml Syringe) 3 ml IVFLUSH QSHIFT [facility] Last Admin: 06/11/22 07:13 Dose: 3 ml Documented By: KEIRA Labs CBC & Chem 7: 06/11/22 05:20 06/11/22 05:20 Labs: Laboratory Results - last 24 hr 06/10/22 06/10/22 06/10/22 09:30 11:45 18:12 MCV MCH MCHC RDW Plt Count MPV Absolute Nucleated RBC Nucleated RBC % (auto) VBG pH 7.36 VBG pCO2 50 VBG pO2 65 VBG HCO3 28 H VBG O2 Saturation 93.0 VBG Base Excess 2.8 Anion Gap Estim Creat Clear Calc Estimated GFR POC Glucose 145 H 214 H Random Glucose Calcium Phosphorus Magnesium Albumin Procalcitonin 06/10/22 06/11/22 06/11/22 19:09 00:39 05:17 MCV MCH MCHC RDW Plt Count MPV Absolute Nucleated RBC Nucleated RBC % (auto) VBG pH 7.44 H VBG pCO2 55 VBG pO2 44 VBG HCO3 38 H VBG O2 Saturation 70.0 VBG Base Excess 12.9 Anion Gap 17 Estim Creat Clear Calc 90.7 Estimated GFR > 60 POC Glucose 164 H Random Glucose 217 H Calcium 7.9 L Phosphorus Magnesium Albumin Procalcitonin 06/11/22 06/11/22 06/11/22 05:20 05:20 05:20 MCV 92.1 MCH 28.5 MCHC 31.0 RDW 16.3 H Plt Count 419 H MPV 10.2 Absolute Nucleated RBC 0.000 Nucleated RBC % (auto) 0.0 VBG pH VBG pCO2 VBG pO2 VBG HCO3 VBG O2 Saturation VBG Base Excess Anion Gap 14 Estim Creat Clear Calc 106.0 Estimated GFR > 60 POC Glucose Random Glucose 177 H Calcium 7.6 L Phosphorus 2.6 L Magnesium 1.6 Albumin 3.3 L Procalcitonin 1.61 06/11/22 05:35 MCV MCH MCHC RDW Plt Count MPV Absolute Nucleated RBC Nucleated RBC % (auto) VBG pH VBG pCO2 VBG pO2 VBG HCO3 VBG O2 Saturation VBG Base Excess Anion Gap Estim Creat Clear Calc Estimated GFR POC Glucose 168 H Random Glucose Calcium Phosphorus Magnesium Albumin Procalcitonin Procedures Date of Service Date of Service: 06/11/22 Arterial Line Size (Gauge): 16 Progress Note: A&P Assessment and plan (1) Perforated viscus: Status: Acute Assessment and Plan: S/P Callie's procedure, abdomen mildly distended but stoma functioning. NOHEMI drains on left side somewhat more feculent today. will keep drains in for now Patient started on pureed diet per speech recommendations. Time Spent With Patient Time: Total time spent is greater than 50% in coordination of care (as documented) at patient's floor/unit and/or counseling patient: Quality Stroke Does the patient have a stroke diagnosis?: No VTE Prior VTE?: No VTE Risk Level:: Medical - moderate - high VTE Device Contraindication: N/A - Device Ordered VTE Drug Contraindication: N/A - Med Ordered
[2022-06-11] MEDS: ondansetron HCL 4 MG/2 ML VIAL IVPUSH ×2 (09:24→17:25)
[2022-06-11] MEDS: Metoclopramide HCl 10 MG/2 ML VIAL IVPUSH ×2 (10:37→17:03)
[2022-06-11 11:39] LABS: Glucose, Whole Blood 193 mg/dL (60-115)
--- NOTE | 2022-06-11 11:43 | PC.NURSE ---
Patient complaining of nausea and feeling full sensation in abdomen with increase in pain 03/19. Patient vomiting approx 50cc emesis. Tube feeds placed on hold, reglan and zofran administered with minimal effect. VSS. Dr Wilkerson notified.
[2022-06-11] MEDS: Potassium Chloride/H20 40 MEQ/100 ML PIGGYBACK 50 MEQ IV (12:07)
[2022-06-11] MEDS: dexmedeTOMIDidine HCL/NS 400 MCG/100 ML INFUS..BTL 17.13 MCG IVCONT (13:25)
[2022-06-11] MEDS: Potassium Chloride/H20 40 MEQ/100 ML PIGGYBACK 25 MEQ IV (14:21)
[2022-06-11] MEDS: acetaZOLAMIDE sodium 500 MG VIAL IVPUSH (17:03)
[2022-06-11] MEDS: Magnesium Sulfate/D5W 1 GM/100 ML PIGGYBACK IV (17:04)
--- NOTE | 2022-06-11 17:21 | P.PNCC_ITS ---
Subjective Subjective Date of Service: 06/11/22 Interval History: Mrs. Hankins was transferred to the ICU on May 23 from the OR after emergency sigmoid resection and colostomy for perforated viscus. The patient is a 62 year old female with history of Crohn's disease who presented to the ED May 18 complaining of 2 weeks of abdominal pain.? She ?d been treated during that time with prednisone for a presumed Crohn?s flare.? On the morning of presentation, she developed sudden onset of sharp abdom pain.? Initial CT scan suggested severe constipation and a question of partial obstruction with worsening severe colitis of the sigmoid colon and proctitis, with increased wall thickening.? There was no evidence of free air.? She was treated with opiates and Zosyn.? The patient was admitted to Medicine and started on systemic steroids. ?Lactic acid was normal on May 19. The patient had no relief with tx.? She therefore underwent flex sig by Dr. Peralta on May 23 at which he found a large abscess cavity in the sigmoid with some associated ulceration, stool, and a second area of ulceration, which was biopsied.? Post procedure the patient had significant worsening of her abdominal exam; stat ct showed free air and fluid with a pelvic abscess. ?She was taken directly to the OR. At laparotomy, found a large perforation in the distal sigmoid, with two large stool balls immediately adjacent to the perforation.? There was extensive peritoneal fecal soilage, w marked indurated peritonitis especially in the pelvis, with the sigmoid covered in thick inflammatory rind.? She underwent extensive lysis of adhesions, sigmoid resection and colostomy, and abdominal washout.? The anesthetic course was marked by progressive septic shock.? The abdomen was closed and the patient was brought out intubated to ICU. On arrival to the ICU, the patient was in deep shock, and markedly hypovolemic.? Echo showed normal right and left heart, with hyperdynamic function and small IVC.? The patient was volume resuscitated, with excellent hemodynamic response.? A central line and arterial line were placed.? The patient was continued on Meropenam. The patient had a somewhat brook course since then.? Here renal indices lakshmi, but creat peaked at 1.7 on May 25.? She developed fever and multiple intraabdominal abscesses and had mult drains placed in IR:? In the left upper quadrant on 05/30, the pelvis on 05/30, the right lateral abdomen 06/02, and the left paracolic gutter on 06/02.? Flagyl was added to meropnenam.? Subsequently she?s been improving slowly.? She was put on TPN.? The colostomy started putting out fecal material.? She was extubated on 06/07.? Since then has had some anxiety and mild ICU encephalopathy, along w moderate ICU myopathy. Yesterday we put in a Kaofeed tube and started tube feeds with Vital.? But this morning she was c/o nausea and belly pain.? We sucked out her stomach thru the Kaofeed tube and got back 650cc.? So we stopped the tube feeds and wrote her for TPN today.? Also started her on Reglan and erythromycin.? Yesterday we also put he on a Lasix drip 3mg/hr.? U/O since then has been > 4L. This morning the patient was fully awake and alert, a bit better than yesterday, maybe less grossly confused.? She?s on fentanyl at 100ug and Precedex at 0.6 ug.? Almost no WOB on HFNC 40L/35%, w SpO2 improved to 95%.? This morning?s CVBG showed 7.44/55/+12.? HR down to 105, SR.? BP 137/73.? Afebrile.? No JVD at 40?.? Chest excursion a bit shallow, but better than yesterday.? Clear on left, a few scattered dry crackles on right.? Normal expiratory phase.? Heart tones are soft, I heard no murmur or gallops.? The abdomen is mildly rotund, possibly mildly distended, with good bowel sounds.? Firmer than yesterday before I sucked out her stomach.? Also significantly tender, which improved significantly after I sucked out her stomach.? The stoma looks good w no stool, just small amount of clear yellow serous fluid.? NOHEMI drains mostly serous except for the pelvic drain from 05/30 which put out about 25 cc of vuong milky-looking fluid.? 1+ anasarca. LABORATORY DATA: ?Below.? Notably, Sodium down to 140, BUN/creat down to 18/0.6 on the Lasix, alb 3.3, PCT down to 1.6.? Potassium 3.5, magnesium 1.6, phos 2.6. IMPRESSION: 1. Underlying obesity. 2. Perforated viscus w fecal peritonitis.? Obviously not acute.? Suspect she per forated the morning of admission when she had sudden onset pain.? The pathology report shows no evidence of Crohn?s.? Mult drains output is mostly serous.? Pelvic drain still purulent. 3. Septic shock.? 2? above.? Resolved. 4. Tachycardia.? Likely SIRS.? Improving. 5. Acute resp failure.? Still has some mild increased WOB, but much improved from yesterday after diuresis of 4L.? Continue the Lasix drip at 2mg/hr. 6. SABINE.? 2? septic shock.? Resolving. 7. ID:? On meropenem and flagyl.? Afebrile with normal WBC.? Will plan one more days of abx, and d/w Dr. Hagan tomorrow. 8. IV sedation:? Has been on Precedex and fentanyl gtts.? Plan taper to off.? Use Dilaudid for pain.? I?ll write for anxiety meds if she needs. 9. Moderate ICU myopathy.? Improving 10. Anemia.? 2? phelebotomies and not making red cells. 11. Metabolic alkalosis.? Secondary to diuresis.? Started on Diamox. 12. Hyperglycemia.? SS insulin. 13. Hypernatremia.? Resolved with D5W infusion overnight. 14. Hypokalemia.? Replete. 15. Hypophosphatemia.? Replete. 16. Hypomagnesemia.? Replete. 17. Nutrition. ?Had to stop the enteral feeds, put her back on TPN.? Added Reglan an erythromycin. 18. DVT proph.? On heparin and ICS. Discussed current condition and treatment w her at the bedside. Critical Care Time (minutes): 80 Physical Exam Vital Signs: Vital Signs: Last Vital Signs Temp 98.5 F 06/11/22 16:00 Pulse 109 H 06/11/22 16:00 Resp 23 H 06/11/22 16:00 BP 128/74 06/11/22 16:00 Pulse Ox 95 06/11/22 16:00 O2 Del Method 06/11/22 16:00 O2 Flow Rate 35 06/11/22 16:00 FiO2 35 06/11/22 16:00 Oxygen Flow Rate 40 06/10/22 21:32 BMI result Body Mass Index 41.4 Objective Data Labs CBC & Chem 7: 06/11/22 05:20 06/11/22 05:20 Labs: Laboratory Results - last 24 hr 06/10/22 06/10/22 06/11/22 18:12 19:09 00:39 WBC RBC Hgb Hct MCV MCH MCHC RDW Plt Count MPV Absolute Nucleated RBC Nucleated RBC % (auto) VBG pH VBG pCO2 VBG pO2 VBG HCO3 VBG O2 Saturation VBG Base Excess Sodium 146 H Potassium 3.7 Chloride 103 Carbon Dioxide 30 H Anion Gap 17 BUN 23 H Creatinine 0.76 Estim Creat Clear Calc 90.7 Estimated GFR > 60 POC Glucose 214 H 164 H Random Glucose 217 H Calcium 7.9 L Phosphorus Magnesium Albumin Procalcitonin 06/11/22 06/11/22 06/11/22 05:17 05:20 05:20 WBC 11.6 H RBC 2.91 L Hgb 8.3 L Hct 26.8 L MCV 92.1 MCH 28.5 MCHC 31.0 RDW 16.3 H Plt Count 419 H MPV 10.2 Absolute Nucleated RBC 0.000 Nucleated RBC % (auto) 0.0 VBG pH 7.44 H VBG pCO2 55 VBG pO2 44 VBG HCO3 38 H VBG O2 Saturation 70.0 VBG Base Excess 12.9 Sodium 140 Potassium 3.5 Chloride 98 Carbon Dioxide 32 H Anion Gap 14 BUN 18 H Creatinine 0.65 Estim Creat Clear Calc 106.0 Estimated GFR > 60 POC Glucose Random Glucose 177 H Calcium 7.6 L Phosphorus 2.6 L Magnesium 1.6 Albumin 3.3 L Procalcitonin 06/11/22 06/11/22 06/11/22 05:20 05:35 11:34 WBC RBC Hgb Hct MCV MCH MCHC RDW Plt Count MPV Absolute Nucleated RBC Nucleated RBC % (auto) VBG pH VBG pCO2 VBG pO2 VBG HCO3 VBG O2 Saturation VBG Base Excess Sodium Potassium Chloride Carbon Dioxide Anion Gap BUN Creatinine Estim Creat Clear Calc Estimated GFR POC Glucose 168 H 193 H Random Glucose Calcium Phosphorus Magnesium Albumin Procalcitonin 1.61 Microbiology Microbiology Results: Microbiology 06/02/22 Unknown Abscess Intra-abdominal Fungal Identification - Preliminary Yeast 06/03/22 15:28 Blood - Subclavian Blood Culture - Final No growth after 5 days. 06/03/22 06:15 Blood - Venous Blood Culture - Final No growth after 5 days. 06/03/22 06:15 Blood - Venous Blood Culture - Final No growth after 5 days. 06/02/22 Unknown Peritoneal Fluid Gram Stain - Final 06/02/22 Unknown Peritoneal Fluid Routine Culture - Final Verónica albicans 06/02/22 Unknown Peritoneal Fluid Anaerobic Culture - Final 05/29/22 15:14 Blood - Venous Blood Culture - Final No growth after 5 days. 05/29/22 15:13 Blood - Venous Blood Culture - Final No growth after 5 days. 05/29/22 05:14 Blood - Venous Blood Culture - Final No growth after 5 days. 05/29/22 05:14 Blood - Venous Blood Culture - Final No growth after 5 days. 06/02/22 Unknown Abscess Intra-abdominal Gram Stain - Final 06/02/22 Unknown Abscess Intra-abdominal Routine Culture - Final 06/02/22 Unknown Abscess Intra-abdominal Anaerobic Culture - Final 06/02/22 Unknown Abscess Intra-abdominal Gram Stain - Final 06/02/22 Unknown Abscess Intra-abdominal Routine Culture - Final 05/28/22 Unknown Peritoneal Fluid Gram Stain - Final 05/28/22 Unknown Peritoneal Fluid Anaerobic Culture - Final 05/28/22 Unknown Peritoneal Fluid Body Fluid Culture - Final Verónica dubliniensis 05/29/22 15:05 Sputum - Suctioned Gram Stain - Final 05/29/22 15:05 Sputum - Suctioned Sputum Culture - Final Verónica dubliniensis 05/28/22 16:47 Sputum - Suctioned Gram Stain - Final 05/28/22 16:47 Sputum - Suctioned Sputum Culture - Final Verónica albicans 05/23/22 Unknown Peritoneal Fluid Gram Stain - Final 05/23/22 Unknown Peritoneal Fluid Routine Culture - Final Escherichia coli 05/23/22 Unknown Peritoneal Fluid Anaerobic Culture - Final Clostridium perfringens Bacteroides thetaiotaomicron 05/19/22 08:49 Blood - Venous Blood Culture - Final No growth after 5 days. 05/19/22 08:49 Blood - Venous Blood Culture - Final No growth after 5 days. Quality Stroke Does the patient have a stroke diagnosis?: No VTE Prior VTE?: No VTE Risk Level:: Medical - moderate - high VTE Device Contraindication: N/A - Device Ordered VTE Drug Contraindication: N/A - Med Ordered Critical Care Time Critical Care Time (minutes): 90
[2022-06-11 18:04] LABS: Glucose, Whole Blood 145 mg/dL (60-115)
[2022-06-11] MEDS: HYDROmorphone HCl 0.5 MG/0.5 ML SYRINGE IVPUSH (22:05)
[2022-06-12] VITALS (31 sets, daily range): BP systolic 133–186; BP diastolic 66–92; PULSE 103–130; RESP 12–22; TEMP 36.7–37.1; O2SAT 89–98; BMI 41.6
[2022-06-12 00:03] LABS: Glucose, Whole Blood 193 mg/dL (60-115)
[2022-06-12] MEDS: HYDROmorphone HCl 1 MG/ML SYRINGE IVPUSH ×3 (00:32→12:44)
[2022-06-12] MEDS: Metoclopramide HCl 10 MG/2 ML VIAL IVPUSH ×2 (00:33→05:36)
[2022-06-12] MEDS: 0.9 % Sodium Chloride Flush 3 ML SYRINGE IVFLUSH ×4 (00:38→23:49)
[2022-06-12] MEDS: metroNIDAZOLE/NS 500 MG/100 ML PIGGYBACK 100 MG IV ×3 (01:16→18:07)
[2022-06-12] MEDS: Heparin Sodium,Porcine 5,000 UNIT/ML VIAL 5000 UNIT SUBCUT ×3 (04:42→19:56)
[2022-06-12] MEDS: ondansetron HCL 4 MG/2 ML VIAL IVPUSH ×2 (04:52→23:50)
[2022-06-12 05:36] LABS: VBG Base Excess 11.7 mmol/L; VBG HCO3 36 mmol/L (22-26); VBG pCO2 50 mmHg; VBG pH 7.47 (7.32-7.43); VBG pO2 46 mmHg
[2022-06-12 05:50] LABS: Hematocrit 27.2 % (37.0-47.0); Hemoglobin 8.8 g/dl (12.0-16.0); Mean Corpuscular HGB Conc 32.4 g/dl (31.0-35.0); Mean Corpuscular Hemoglobin 29.4 pg (27.0-33.0); Mean Platelet Volume 10.5 fL (9.4-12.3); Platelet Count 484 X10*3/uL (160-400); Red Blood Count 2.99 X10*6/uL (4.20-5.50); Red Cell Distribution Width 15.7 % (11.0-16.0); White Blood Count 15.2 X10*3/uL (4.8-10.8)
[2022-06-12 05:53] LABS: Venous Blood Gas Refer to POC result
[2022-06-12 06:12] LABS: Alanine Aminotransferase 8 U/L (0-31); Albumin Level 3.2 g/dL (3.5-5.0); Alkaline Phosphatase 59 U/L (39-117); Anion Gap 12 (12-20); Aspartate Amino Transferase 14 U/L (5-31); Bilirubin Total 0.7 mg/dL (0.0-1.0); Blood Urea Nitrogen 13 mg/dL (9-16); Calcium 7.8 mg/dL (8.4-10.2); Carbon Dioxide 35 mmol/L (22-29); Chloride 96 mmol/L (96-108); Creatinine Clr Calc Pharmacy 109.7; Estimated Glomerular Filt Rate > 60; Glucose Random 217 mg/dL (60-115); Magnesium 1.8 mg/dL (1.6-2.6); Phosphorus 1.7 mg/dL (2.7-4.5); Sodium 140 mmol/L (135-145); Total Protein 5.7 g/dL (6.5-8.0)
[2022-06-12 06:34] LABS: Glucose, Whole Blood 201 mg/dL (60-115)
--- NOTE | 2022-06-12 08:45 | PM.PNGS ---
Subjective Subjective Date of Service: 06/14/22 Interval history: Remains off the ventilator Has been afebrile Seems to be more alert this morning Physical Exam Vital Signs: Vital Signs: Last Vital Signs Temp 98.1 F 06/12/22 06:00 Pulse 119 H 06/12/22 08:00 Resp 17 06/12/22 08:42 BP 171/79 H 06/12/22 08:00 Pulse Ox 95 06/12/22 08:00 O2 Del Method 06/12/22 08:00 O2 Flow Rate 35 06/12/22 08:00 FiO2 35 06/12/22 08:00 Oxygen Flow Rate 35 06/11/22 21:00 BMI result Body Mass Index 41.6 Const: Other: Off the ventilator, some shortness of breath Resp: Other: Some shortness of breath Cardio: Rate: tachycardic GI: Other: Soft, incision clean, stoma functioning well, drains in place, pelvic drain purulent but scanty Objective Data Active Medications Acetazolamide (Acetazolamide Sodium 500 Mg Vial) 500 mg IVPUSH BID [facility] Last Admin: 06/11/22 17:03 Dose: 500 mg Documented By: KEIRA Famotidine (Famotidine/Pf 20 Mg/2 Ml Vial) 20 mg IVPUSH DAILY [facility] Last Admin: 06/11/22 07:13 Dose: 20 mg Documented By: KEIRA Heparin Sodium (Porcine) (Heparin Sodium,Porcine 5,000 Unit/Ml Vial) 5,000 unit SUBCUT Q8H [facility] Last Admin: 06/12/22 04:42 Dose: 5,000 unit Documented By: YONATHAN Hydromorphone HCl (Hydromorphone Hcl 0.5 Mg/0.5 Ml Syringe) 0.5 mg IVPUSH Q1H PRN; Protocol PRN Reason: mild pain Last Admin: 06/11/22 22:05 Dose: 0.5 mg Documented By: YONATHAN Hydromorphone HCl (Hydromorphone Hcl 1 Mg/Ml Syringe) 1 mg IVPUSH Q1H PRN; Protocol PRN Reason: mod-severe pain Last Admin: 06/12/22 04:48 Dose: 1 mg Documented By: YONATHAN Metronidazole (Flagyl) 500 mg in 100 mls @ 100 mls/hr IV Q8H [facility] Last Infusion: 06/12/22 02:42 Dose: 100 mls/hr Documented By: YONATHAN Meropenem 1 gm/ Sodium (Chloride) 100 mls @ 200 mls/hr IV Q8H [facility] Last Infusion: 06/12/22 02:41 Dose: 200 mls/hr Documented By: YONATHAN Furosemide 200 mg/ Sodium (Chloride) 100 mls @ 1 mls/hr IVCONT .Q24H [facility] Last Admin: 06/11/22 08:49 Dose: 3 mg/hr, 1.5 mls/hr Documented By: KEIRA Amino Acids/Dextrose (Clinimix 5%-15%) 1,320 mls @ 55 mls/hr IV DAILY@1800 [facility] Stop: 06/12/22 17:59 Last Admin: 06/11/22 17:43 Dose: 55 mls/hr Documented By: KEIRA Erythromycin Lactobionate 500 (mg/ Sodium Chloride) 250 mls @ 100 mls/hr IV Q8H [facility] Last Infusion: 06/12/22 04:12 Dose: 100 mls/hr Documented By: YONATHAN Potassium Phosphate (Kphos) 15 mmol in 250 mls @ 62.5 mls/hr IV ONCE ONE Stop: 06/12/22 11:59 Magnesium Sulfate (Magnesium Sulfate/H2o) 2 gm in 50 mls @ 25 mls/hr IV ONCE ONE Stop: 06/12/22 09:59 Potassium Chloride (Potassium Chloride/H20) 40 meq in 100 mls @ 100 mls/hr IV ONCE@0900 [facility] Stop: 06/12/22 09:59 Fentanyl (Sublimaze/Ns) 1,000 mcg in 100 mls @ 5 mls/hr IVCONT .Q20H [facility] Insulin Human Lispro (Insulin Lispro 100 Unit/Ml 3 Ml Vial) 0 unit SUBCUT Q6H [facility]; Protocol Last Admin: 06/12/22 06:33 Dose: Not Given Documented By: YONATHAN Non-Admin Reason: NPO Nystatin (Nystatin Powder 15 Gm Bottle) 1 appl TOPICAL BID [facility]; Protocol Last Admin: 06/11/22 20:22 Dose: 1 appl Documented By: YONATHAN Ondansetron HCl (Ondansetron Hcl 4 Mg/2 Ml Vial) 4 mg IVPUSH Q6H PRN PRN Reason: Nausea Last Admin: 06/12/22 04:52 Dose: 4 mg Documented By: YONATHAN Pharmacy Consult (Consult Rx Perform Med Rec) 1 each MISCELLANE ONCE PRN PRN Reason: Consult order Sodium Chloride (0.9 % Sodium Chloride Flush 3 Ml Syringe) 3 ml IVFLUSH QSHIFT [facility] Last Admin: 06/12/22 00:38 Dose: 3 ml Documented By: YONATHAN Labs CBC & Chem 7: 06/14/22 05:05 06/14/22 05:05 Labs: Laboratory Results - last 24 hr 06/11/22 06/11/22 06/11/22 11:34 17:29 23:59 MCV MCH MCHC RDW Plt Count MPV Absolute Nucleated RBC Nucleated RBC % (auto) VBG pH VBG pCO2 VBG pO2 VBG HCO3 VBG O2 Saturation VBG Base Excess Anion Gap Estim Creat Clear Calc Estimated GFR POC Glucose 193 H 145 H 193 H Random Glucose Calcium Phosphorus Magnesium Total Bilirubin AST ALT Alkaline Phosphatase Total Protein Albumin 06/12/22 06/12/22 06/12/22 05:30 05:30 05:30 MCV 91.0 MCH 29.4 MCHC 32.4 RDW 15.7 Plt Count 484 H MPV 10.5 Absolute Nucleated RBC 0.000 Nucleated RBC % (auto) 0.0 VBG pH 7.47 H VBG pCO2 50 VBG pO2 46 VBG HCO3 36 H VBG O2 Saturation 74.0 VBG Base Excess 11.7 Anion Gap 12 Estim Creat Clear Calc 109.7 Estimated GFR > 60 POC Glucose Random Glucose 217 H Calcium 7.8 L Phosphorus 1.7 L Magnesium 1.8 Total Bilirubin 0.7 AST 14 ALT 8 Alkaline Phosphatase 59 Total Protein 5.7 L Albumin 3.2 L 06/12/22 06:31 MCV MCH MCHC RDW Plt Count MPV Absolute Nucleated RBC Nucleated RBC % (auto) VBG pH VBG pCO2 VBG pO2 VBG HCO3 VBG O2 Saturation VBG Base Excess Anion Gap Estim Creat Clear Calc Estimated GFR POC Glucose 201 H Random Glucose Calcium Phosphorus Magnesium Total Bilirubin AST ALT Alkaline Phosphatase Total Protein Albumin Microbiology Microbiology Results: Microbiology 06/02/22 Unknown Fungal Identification - Preliminary Abscess Intra-abdominal Yeast Procedures Date of Service Date of Service: 06/12/22 Arterial Line Size (Gauge): 16 Progress Note: A&P Assessment and plan (1) Perforated viscus: Status: Acute Assessment and Plan: Remains off ventilator after extubation Has been afebrile Stoma functioning Plan to remove drains 1 at that time except for pelvic drain which has purulent output Continue antibiotics for now Making progress overall Discussed with fisher lampara net Diet as tolerated Time Spent With Patient Time: Total time spent is greater than 50% in coordination of care (as documented) at patient's floor/unit and/or counseling patient: Quality Stroke Does the patient have a stroke diagnosis?: No VTE Prior VTE?: No VTE Risk Level:: Medical - moderate - high VTE Device Contraindication: N/A - Device Ordered VTE Drug Contraindication: N/A - Med Ordered
[2022-06-12] MEDS: Potassium Chloride/H20 40 MEQ/100 ML PIGGYBACK 100 MEQ IV (08:55)
[2022-06-12] MEDS: Famotidine/PF 20 MG/2 ML VIAL IVPUSH (08:56)
[2022-06-12] MEDS: acetaZOLAMIDE sodium 500 MG VIAL IVPUSH ×3 (08:56→23:59)
[2022-06-12] MEDS: Magnesium Sulfate/H2O 2 GM/50 ML PIGGYBACK IV (09:01)
[2022-06-12] MEDS: Potassium Phosphate/NS 15 MMOL/250 ML PLAST..BAG 62.5 MMOL IV (09:02)
[2022-06-12] MEDS: Nystatin Powder 15 GM BOTTLE 1 APPL TOPICAL ×2 (09:08→19:58)
[2022-06-12] MEDS: Furosemide 200 MG in 0.9 % Sodium Chloride 80 ML IVCONT (10:29)
--- NOTE | 2022-06-12 10:40 | MHC.CLN ---
F/U DISCUSSED AT ROUND WITH PT WITH KAOFEED TUBE SINCE YESTERDAY RECOMMEND RE-STARTING VITAL 1.5 AT MAX GOAL RATE 40ML/HR TO PROVIDE 1440KCALS (24KCALS/KG), 65G PROTEIN, 733ML FREE WATER FROM FORMULA MONITOR TOLERANCE, RESIDUALS AND LYTES
[2022-06-12] MEDS: fentaNYL citrate/NS 1,000 MCG/100 ML PLAST..BAG 5 MCG IVCONT (11:48)
[2022-06-12 12:09] LABS: Glucose, Whole Blood 164 mg/dL (60-115)
[2022-06-12] MEDS: Insulin Lispro 100 UNIT/ML 3 ML VIAL SUBCUT ×2 (12:43→18:16)
--- NOTE | 2022-06-12 13:47 | MHC.SL.SWA ---
Speech Pathologist Impression: Oropharyngeal phase dysphagia Risk of Aspiration Due to: Medically Fragile Hx of Recent Extubation Weak Cough Dysphasia Diet Status: Recommend supplemental PO Liquid Consistency and Strategies for Safe Swallow: Liquid Intake Recommendation: supplemental PO water by tspn Liquid Intake Strategies: Small Sips No Straws Liquids by Teaspoon Only Solid Food Consistency: Dietary Recommendations: supplemental PO NDD1 Additional Modifications to Solid Foods: Pt was recommended to start on PO diet pureed solids/thin liquids after she was evaluated by DENTAL HYGIENIST on Saturday 06/09. Pt is now NPO and receiving tube feeds. DENTAL HYGIENIST discussed w/ pt's family at bedside. Pt's sister reported pt was not eating much over the weekend. Additionally, RN reported pt was experiencing nausea. Pt accepted limited PO at bedside this morning. Pt tolerated small bites of applesauce and sips of water by teaspoon. Pt only took a trace amount and appeared to fatigue. Recommend supplemental PO PUREED (NDD1) diet with THIN liquids and pills CRUSHED in PUREE. Puree to be administered by 1/2 teaspoon bites. Pt requires total 1:1 assistance feeding. Ensure oral cavity is clear before presenting more bites. Liquids BY TEASPOON only. Pt to be seated upright at 90 degrees for PO intake. Aspiration precautions apply. Pt must be awake and alert for PO intake. Monitor 02 and monitor for any overt s/s of aspiration. Updated MD, RN, RD by Trevon Message of recommendations. Oral Medication Intake: Crushed with Puree Please contact the pharmacy regarding appropriate crushable or liquid drug formulations that are available whenever modified delivery is recommended. Compensatory Strategies and Precautions to be Taken for Safe Swallow: Sitting Upright (90 deg) No Straw Liquids from Spoon Small Bites and Sips Rate of Ingestion Change Oral Check Supervision While Eating and Drinking for Safe Swallow: Total Assistance (1:1) Swallowing Recommended Treatments: Compens. Strategy Educat. Recommendation for Speech: Inpatient Speech Therapy Comment: Pt w/ oropharyngeal dysphagia s/p extubation. Frequency/Duration: M-F Tubing Mill Setter Clinican/Clinical Fellow: No Supervisory Statement: I have reviewed and agree with the student/clinical fellow's documentation: N/A Speech Language Pathologist: Majo Grissom M.A., [facility]-DENTAL HYGIENIST
[2022-06-12 18:17] LABS: Glucose, Whole Blood 171 mg/dL (60-115)
--- NOTE | 2022-06-12 18:53 | PC.NURSE ---
PATIENT OOB TO [place] CHAIR WITH 3+ ASSIST FROM 1400 - 1700, TOLERATED FAIR. OSTOMY EMPTIED FOR 100 ML DARK BROWN, PASTY STOOL. BATHED, Q2HR REPO, BARRIER CREAM, PREVALON SYSTEM WITH PILLOWS AND WEDGES UTILIZED.
--- NOTE | 2022-06-12 20:08 | P.PNCC_ITS ---
Subjective Subjective Date of Service: 06/12/22 Interval History: Mrs. Hankins was transferred to the ICU on May 23 from the OR after emergency sigmoid resection and colostomy for perforated viscus. The patient is a 62 year old female with history of Crohn's disease who presented to the ED May 18 complaining of 2 weeks of abdominal pain.? She ?d been treated during that time with prednisone for a presumed Crohn?s flare.? On the morning of presentation, she developed sudden onset of sharp abdom pain.? Initial CT scan suggested severe constipation and a question of partial obstruction with worsening severe colitis of the sigmoid colon and proctitis, with increased wall thickening.? There was no evidence of free air.? She was treated with opiates and Zosyn.? The patient was admitted to Medicine and started on systemic steroids. ?Lactic acid was normal on May 19. The patient had no relief with tx.? She therefore underwent flex sig by Dr. Peralta on May 23 at which he found a large abscess cavity in the sigmoid with some associated ulceration, stool, and a second area of ulceration, which was biopsied.? Post procedure the patient had significant worsening of her abdominal exam; stat ct showed free air and fluid with a pelvic abscess. ?She was taken directly to the OR. At laparotomy, found a large perforation in the distal sigmoid, with two large stool balls immediately adjacent to the perforation.? There was extensive peritoneal fecal soilage, w marked indurated peritonitis especially in the pelvis, with the sigmoid covered in thick inflammatory rind.? She underwent extensive lysis of adhesions, sigmoid resection and colostomy, and abdominal washout.? The anesthetic course was marked by progressive septic shock.? The abdomen was closed and the patient was brought out intubated to ICU. On arrival to the ICU, the patient was in deep shock, and markedly hypovolemic.? Echo showed normal right and left heart, with hyperdynamic function and small IVC.? The patient was volume resuscitated, with excellent hemodynamic response.? A central line and arterial line were placed.? The patient was continued on Meropenam. The patient had a somewhat brook course since then.? Here renal indices lakshmi, but creat peaked at 1.7 on May 25.? She developed fever and multiple intraabdominal abscesses and had mult drains placed in IR:? In the left upper quadrant on 05/30, the pelvis on 05/30, the right lateral abdomen 06/02, and the left paracolic gutter on 06/02.? Flagyl was added to meropnenam. Subsequently she?s been improving slowly.? She was put on TPN.? The colostomy started putting out fecal material.? She was extubated on 06/07.? Since then has had some anxiety and mild ICU encephalopathy, along w moderate ICU myopathy.? We put a Kaofeed tube in on Jun 10 and started tube feeds with Vital, and started a Lasix drip.? Yesterday she c/o nausea and belly pain.? We sucked out 650cc from the Kaofeed tube.? Abandoned the tube feeds, went back to TPN, and put her on Reglan and erythromycin. This morning feeling better.? We restarted the tube feeds and she?s been OK all day. ?She?s been making copious urine and her edema has noticeably shrunk.? Fully awake and alert, maybe a bit more oriented than yesterday, much less grossly confused.? She?s on fentanyl at 50ug.? Precedex is off.? No WOB on HFNC 35L/35%, w SpO2 improved to 96%.? This morning?s CVBG showed 7.47/50/+11 (on Diamox).? HR 110-120, SR.? BP 135/67.? Afebrile.? No JVD at 40?.? Chest shows better excursion.? CTA, normal expiratory phase.? Heart tones are soft, I heard no murmur or gallops.? The abdomen is mildly rotund, not distended.? Good bowel sounds.? Softer than yesterday.? She has good stool in the ostomy bag.? Left pelvic drain (05/30) still putting out small amount of vuong milky-looking fluid.? The other left sided drain also turning a little milky.? Anasarca has resolved. Total i/o balance still + 14.2 L LABORATORY DATA: ?Below.? Notably, sodium steady at 140, BUN/creat down to 13/0.6 on the Lasix, alb 3.2.? Potassium 3.0, magnesium 1.8, phos 1.7. IMPRESSION: 1. Underlying obesity. 2. Perforated viscus w fecal peritonitis.? Obviously not acute.? Suspect she perforated the morning of admission when she had sudden onset pain.? The pathology report shows no evidence of Crohn?s.? Mult drains output is mostly serous.? Pelvic drain still purulent. 3. Septic shock.? 2? above.? Resolved. 4. Tachycardia.? Likely SIRS.? Improving.? I?ll start her on low dose metoprolol. 5. Acute resp failure.? WOB has resolved.? Continue the Lasix drip. 6. SABINE.? 2? septic shock.? Resolved. 7. ID:? On meropenem and flagyl.? Afebrile, but WBC is up today.? Will d/w Dr. Hagan tomorrow. 8. IV sedation:? Precedex is off, fentanyl taper will end tomorrow morning.? Use Dilaudid for pain.? I?ll write for anxiety meds if she needs. 9. Moderate ICU myopathy.? Improving very slowly. 10. Anemia.? 2? phelebotomies and not making red cells. 11. Metabolic alkalosis.? Secondary to diuresis.? Started on Diamox. 12. Hyperglycemia.? SS insulin. 13. Hypernatremia.? Resolved with salt-poor TPN infusion. 14. Hypokalemia.? Replete. 15. Hypophosphatemia.? Replete. 16. Hypomagnesemia.? Replete. 17. Nutrition. ?Restarted enteral feeds after Reglan and Erythromycin.? Doing very well. 18. DVT proph.? On heparin and ICS. Critical Care Time (minutes): 60 Physical Exam Vital Signs: Vital Signs: Last Vital Signs Temp 98.7 F 06/12/22 12:00 Pulse 115 H 06/12/22 20:00 Resp 14 06/12/22 20:00 BP 144/66 H 06/12/22 20:00 Pulse Ox 94 06/12/22 20:00 O2 Del Method 06/12/22 20:00 O2 Flow Rate 35 06/12/22 20:00 FiO2 35 06/12/22 20:00 Oxygen Flow Rate 35 06/11/22 21:00 BMI result Body Mass Index 41.6 Objective Data Labs CBC & Chem 7: 06/12/22 05:30 06/12/22 05:30 Labs: Laboratory Results - last 24 hr 06/11/22 06/12/22 06/12/22 23:59 05:30 05:30 WBC 15.2 H RBC 2.99 L Hgb 8.8 L Hct 27.2 L MCV 91.0 MCH 29.4 MCHC 32.4 RDW 15.7 Plt Count 484 H MPV 10.5 Absolute Nucleated RBC 0.000 Nucleated RBC % (auto) 0.0 VBG pH VBG pCO2 VBG pO2 VBG HCO3 VBG O2 Saturation VBG Base Excess Sodium 140 Potassium 3.0 L Chloride 96 Carbon Dioxide 35 H Anion Gap 12 BUN 13 Creatinine 0.63 Estim Creat Clear Calc 109.7 Estimated GFR > 60 POC Glucose 193 H Random Glucose 217 H Calcium 7.8 L Phosphorus 1.7 L Magnesium 1.8 Total Bilirubin 0.7 AST 14 ALT 8 Alkaline Phosphatase 59 Total Protein 5.7 L Albumin 3.2 L 06/12/22 06/12/22 06/12/22 05:30 06:31 12:06 WBC RBC Hgb Hct MCV MCH MCHC RDW Plt Count MPV Absolute Nucleated RBC Nucleated RBC % (auto) VBG pH 7.47 H VBG pCO2 50 VBG pO2 46 VBG HCO3 36 H VBG O2 Saturation 74.0 VBG Base Excess 11.7 Sodium Potassium Chloride Carbon Dioxide Anion Gap BUN Creatinine Estim Creat Clear Calc Estimated GFR POC Glucose 201 H 164 H Random Glucose Calcium Phosphorus Magnesium Total Bilirubin AST ALT Alkaline Phosphatase Total Protein Albumin 06/12/22 18:13 WBC RBC Hgb Hct MCV MCH MCHC RDW Plt Count MPV Absolute Nucleated RBC Nucleated RBC % (auto) VBG pH VBG pCO2 VBG pO2 VBG HCO3 VBG O2 Saturation VBG Base Excess Sodium Potassium Chloride Carbon Dioxide Anion Gap BUN Creatinine Estim Creat Clear Calc Estimated GFR POC Glucose 171 H Random Glucose Calcium Phosphorus Magnesium Total Bilirubin AST ALT Alkaline Phosphatase Total Protein Albumin Microbiology Microbiology Results: Microbiology 06/02/22 Unknown Abscess Intra-abdominal Fungal Identification - Preliminary Yeast 06/03/22 15:28 Blood - Subclavian Blood Culture - Final No growth after 5 days. 06/03/22 06:15 Blood - Venous Blood Culture - Final No growth after 5 days. 06/03/22 06:15 Blood - Venous Blood Culture - Final No growth after 5 days. 06/02/22 Unknown Peritoneal Fluid Gram Stain - Final 06/02/22 Unknown Peritoneal Fluid Routine Culture - Final Verónica albicans 06/02/22 Unknown Peritoneal Fluid Anaerobic Culture - Final 05/29/22 15:14 Blood - Venous Blood Culture - Final No growth after 5 days. 05/29/22 15:13 Blood - Venous Blood Culture - Final No growth after 5 days. 05/29/22 05:14 Blood - Venous Blood Culture - Final No growth after 5 days. 05/29/22 05:14 Blood - Venous Blood Culture - Final No growth after 5 days. 06/02/22 Unknown Abscess Intra-abdominal Gram Stain - Final 06/02/22 Unknown Abscess Intra-abdominal Routine Culture - Final 06/02/22 Unknown Abscess Intra-abdominal Anaerobic Culture - Final 06/02/22 Unknown Abscess Intra-abdominal Gram Stain - Final 06/02/22 Unknown Abscess Intra-abdominal Routine Culture - Final 05/28/22 Unknown Peritoneal Fluid Gram Stain - Final 05/28/22 Unknown Peritoneal Fluid Anaerobic Culture - Final 05/28/22 Unknown Peritoneal Fluid Body Fluid Culture - Final Verónica dubliniensis 05/29/22 15:05 Sputum - Suctioned Gram Stain - Final 05/29/22 15:05 Sputum - Suctioned Sputum Culture - Final Verónica dubliniensis 05/28/22 16:47 Sputum - Suctioned Gram Stain - Final 05/28/22 16:47 Sputum - Suctioned Sputum Culture - Final Verónica albicans 05/23/22 Unknown Peritoneal Fluid Gram Stain - Final 05/23/22 Unknown Peritoneal Fluid Routine Culture - Final Escherichia coli 05/23/22 Unknown Peritoneal Fluid Anaerobic Culture - Final Clostridium perfringens Bacteroides thetaiotaomicron 05/19/22 08:49 Blood - Venous Blood Culture - Final No growth after 5 days. 05/19/22 08:49 Blood - Venous Blood Culture - Final No growth after 5 days. Quality Stroke Does the patient have a stroke diagnosis?: No VTE Prior VTE?: No VTE Risk Level:: Medical - moderate - high VTE Device Contraindication: N/A - Device Ordered VTE Drug Contraindication: N/A - Med Ordered Critical Care Time Critical Care Time (minutes): 60
[2022-06-12 23:38] LABS: Glucose, Whole Blood 146 mg/dL (60-115)
[2022-06-12] MEDS: Potassium Chloride Packet 20 MEQ PACKET 40 MEQ NG-TUBE (23:59)
[2022-06-13] VITALS (30 sets, daily range): BP systolic 107–161; BP diastolic 53–87; PULSE 88–164; RESP 15–36; TEMP 36.6–37.6; O2SAT 91–98; BMI 40.7
[2022-06-13] MEDS: Metoprolol Tartrate 25 MG TABLET NG-TUBE (00:11)
[2022-06-13] MEDS: fentaNYL citrate/NS 1,000 MCG/100 ML PLAST..BAG 2.5 MCG IVCONT (02:22)
[2022-06-13] MEDS: HYDROmorphone HCl 1 MG/ML SYRINGE IVPUSH ×2 (02:25→08:30)
[2022-06-13] MEDS: metroNIDAZOLE/NS 500 MG/100 ML PIGGYBACK 100 MG IV ×3 (02:30→17:39)
[2022-06-13] MEDS: Potassium Chloride Packet 20 MEQ PACKET 40 MEQ NG-TUBE (03:20)
[2022-06-13] MEDS: Heparin Sodium,Porcine 5,000 UNIT/ML VIAL 5000 UNIT SUBCUT ×2 (03:33→10:52)
[2022-06-13 05:14] LABS: Glucose, Whole Blood 156 mg/dL (60-115)
[2022-06-13 05:15] LABS: VBG Base Excess 9.6 mmol/L; VBG HCO3 33 mmol/L (22-26); VBG pCO2 42 mmHg; VBG pO2 44 mmHg
[2022-06-13] MEDS: Insulin Lispro 100 UNIT/ML 3 ML VIAL SUBCUT ×2 (05:35→12:17)
[2022-06-13 05:42] LABS: Hematocrit 29.5 % (37.0-47.0); Hemoglobin 9.2 g/dl (12.0-16.0); Mean Corpuscular HGB Conc 31.2 g/dl (31.0-35.0); Mean Corpuscular Hemoglobin 28.9 pg (27.0-33.0); Mean Corpuscular Volume 92.8 fL (80.0-98.0); Mean Platelet Volume 10.5 fL (9.4-12.3); Platelet Count 551 X10*3/uL (160-400); Red Blood Count 3.18 X10*6/uL (4.20-5.50)
[2022-06-13 06:03] LABS: Albumin Level 3.3 g/dL (3.5-5.0); Anion Gap 18 (12-20); Blood Urea Nitrogen 16 mg/dL (9-16); Calcium 8.1 mg/dL (8.4-10.2); Carbon Dioxide 31 mmol/L (22-29); Chloride 97 mmol/L (96-108); Creatinine Clr Calc Pharmacy 100.3; Estimated Glomerular Filt Rate > 60; Glucose Random 175 mg/dL (60-115); Magnesium 1.9 mg/dL (1.6-2.6); Phosphorus 2.5 mg/dL (2.7-4.5); Potassium 3.8 mmol/L (3.3-5.1); Sodium 142 mmol/L (135-145)
[2022-06-13 06:18] LABS: Procalcitonin 1.11 ng/mL
--- NOTE | 2022-06-13 06:47 | PC.NURSE ---
CARE ASSUMED 23:15...AWAKE..ALERT..ORIENTED X3..SPEECH CLEAR..REMAINS HI JACE CANNULA NO DISTRESS..OCASSIONAL LOOSE COUGH..MD PRESENT AT HS...KAOFEED TUBE AT 70CM...FEEDS TITRATED TO GOAL OF 40 CC/HR OVERNIGHT PER MD..COLOSTOMY DRAINING LIQUIED BROWN STOOL...FENTANYL DRIP 50 MCH/HR..WEANED OFF OVERNIGHT PER MD...PRN DILAUDID X1 FOR PAIN PER NOV..LASIX DRIP INCREASED FROM 3 MG/HT TO 5 MG/HR AND DIAMOX INCREASED TO Q8H..STARTED SCHEDULATED LOPRESSOR VIA KAOFEED TUBE...KCL 40MEQ VIA KAOFEED TUBE X2..RESTFUL OVERNIGHT..REMAINS WITH NOHEMI DRAINS X5...LEFT BUTTOCK AND LEFT LOWER MC1CLCH WITH [place] DRAINAGE...SINUS TACH HR 110'S-120..BP STABLE
[2022-06-13 08:06] LABS: Venous Blood Gas Refer to POC result
[2022-06-13] MEDS: acetaZOLAMIDE sodium 500 MG VIAL IVPUSH ×3 (08:24→23:35)
[2022-06-13] MEDS: Sodium,Potassium Phosphates POWD.PACK 1 PACKET PO ×3 (08:25→22:08)
[2022-06-13] MEDS: Famotidine/PF 20 MG/2 ML VIAL IVPUSH (08:25)
[2022-06-13] MEDS: Nystatin Powder 15 GM BOTTLE 1 APPL TOPICAL ×2 (08:48→22:08)
[2022-06-13] MEDS: Furosemide 200 MG in 0.9 % Sodium Chloride 80 ML IVCONT (10:12)
[2022-06-13] MEDS: Metoprolol Tartrate 50 MG TABLET PO ×2 (10:23→22:08)
--- NOTE | 2022-06-13 10:40 | PC.NURSE ---
Addendum entered by Ramírez Ware RN 06/13/22 12:58: Per CT pt must have TF on hold for [address]. informed. TF on hold. Addendum entered by Ramírez Ware RN 06/13/22 11:14: Surgery d/c'ed right upper NOHEMI drain. ABD pad placed d/t drainage from site. Original Note: informed of pt's abnormal assessment to LLE. assessed pt at bedside.
--- NOTE | 2022-06-13 11:02 | PM.PNGS ---
Subjective Subjective Date of Service: 06/14/22 Interval history: remains off the vent a little short of breath answering questions - more alert stoma with output Physical Exam Vital Signs: Vital Signs: Last Vital Signs Temp 99.0 F 06/13/22 08:00 Pulse 123 H 06/13/22 10:00 Resp 22 H 06/13/22 10:00 BP 128/64 06/13/22 10:00 Pulse Ox 92 06/13/22 10:00 O2 Del Method 06/13/22 10:00 O2 Flow Rate 35 06/13/22 10:00 FiO2 35 06/13/22 10:00 Oxygen Flow Rate 35 06/12/22 21:00 BMI result Body Mass Index 40.7 Const: Other: a little short of breath General: comfortable Resp: Other: a little short of breath Cardio: Rate: tachycardic GI: Other: stoma with output, drains in place; all drains with scanty output; pelvic drain appears purulent Palpation (GI): Soft to palpation, not firm, no guarding and not rigid Objective Data Active Medications Acetazolamide (Acetazolamide Sodium 500 Mg Vial) 500 mg IVPUSH Q8H [facility] Last Admin: 06/13/22 08:24 Dose: 500 mg Documented By: SANTOS Famotidine (Famotidine/Pf 20 Mg/2 Ml Vial) 20 mg IVPUSH DAILY [facility] Last Admin: 06/13/22 08:25 Dose: 20 mg Documented By: SANTOS Heparin Sodium (Porcine) (Heparin Sodium,Porcine 5,000 Unit/Ml Vial) 5,000 unit SUBCUT Q8H [facility] Last Admin: 06/13/22 10:52 Dose: 5,000 unit Documented By: SANTOS Hydromorphone HCl (Hydromorphone Hcl 0.5 Mg/0.5 Ml Syringe) 0.5 mg IVPUSH Q1H PRN; Protocol PRN Reason: mild pain Last Admin: 06/11/22 22:05 Dose: 0.5 mg Documented By: YONATHAN Hydromorphone HCl (Hydromorphone Hcl 1 Mg/Ml Syringe) 1 mg IVPUSH Q1H PRN; Protocol PRN Reason: mod-severe pain Last Admin: 06/13/22 08:30 Dose: 1 mg Documented By: SANTOS Metronidazole (Flagyl) 500 mg in 100 mls @ 100 mls/hr IV Q8H [facility] Last Admin: 06/13/22 10:52 Dose: 100 mls/hr Documented By: SANTOS Meropenem 1 gm/ Sodium (Chloride) 100 mls @ 200 mls/hr IV Q8H [facility] Last Infusion: 06/13/22 10:43 Dose: 0 mls/hr Documented By: SANTOS Furosemide 200 mg/ Sodium (Chloride) 100 mls @ 2.5 mls/hr IVCONT .Q24H [facility] Last Admin: 06/13/22 10:12 Dose: 5 mg/hr, 2.5 mls/hr Documented By: SANTOS Erythromycin Lactobionate 500 (mg/ Sodium Chloride) 100 mls @ 100 mls/hr IV Q8H [facility] Last Infusion: 06/13/22 10:44 Dose: 0 mls/hr Documented By: SANTOS Insulin Human Lispro (Insulin Lispro 100 Unit/Ml 3 Ml Vial) 0 unit SUBCUT Q6H [facility]; Protocol Last Admin: 06/13/22 05:35 Dose: 2 unit Documented By: LUIS Metoprolol Tartrate (Metoprolol Tartrate 50 Mg Tablet) 50 mg PO BID [facility]; Protocol Last Admin: 06/13/22 10:23 Dose: 50 mg Documented By: SANTOS Nystatin (Nystatin Powder 15 Gm Bottle) 1 appl TOPICAL BID [facility]; Protocol Last Admin: 06/13/22 08:48 Dose: 1 appl Documented By: SANTOS Ondansetron HCl (Ondansetron Hcl 4 Mg/2 Ml Vial) 4 mg IVPUSH Q6H PRN PRN Reason: Nausea Last Admin: 06/12/22 23:50 Dose: 4 mg Documented By: LUIS Pharmacy Consult (Consult Rx Perform Med Rec) 1 each MISCELLANE ONCE PRN PRN Reason: Consult order Potassium Phos/Sodium Phos (Sodium,Potassium Phosphates Powd.Pack) 1 packet PO QID [facility] Last Admin: 06/13/22 08:25 Dose: 1 packet Documented By: SANTOS Sodium Chloride (0.9 % Sodium Chloride Flush 3 Ml Syringe) 3 ml IVFLUSH QSHIFT [facility] Last Admin: 06/13/22 07:04 Dose: Not Given Documented By: DOMI Non-Admin Reason: IV Running Labs CBC & Chem 7: 06/14/22 05:05 06/14/22 05:05 Labs: Laboratory Results - last 24 hr 06/12/22 06/12/22 06/12/22 12:06 18:13 23:33 MCV MCH MCHC RDW Plt Count MPV Absolute Nucleated RBC Nucleated RBC % (auto) VBG pH VBG pCO2 VBG pO2 VBG HCO3 VBG O2 Saturation VBG Base Excess Anion Gap Estim Creat Clear Calc Estimated GFR POC Glucose 164 H 171 H 146 H Random Glucose Calcium Phosphorus Magnesium Albumin Procalcitonin 06/13/22 06/13/22 06/13/22 05:08 05:08 05:08 MCV 92.8 MCH 28.9 MCHC 31.2 RDW 16.0 Plt Count 551 H MPV 10.5 Absolute Nucleated RBC 0.000 Nucleated RBC % (auto) 0.0 VBG pH VBG pCO2 VBG pO2 VBG HCO3 VBG O2 Saturation VBG Base Excess Anion Gap 18 Estim Creat Clear Calc 100.3 Estimated GFR > 60 POC Glucose Random Glucose 175 H Calcium 8.1 L Phosphorus 2.5 L Magnesium 1.9 Albumin 3.3 L Procalcitonin 1.11 06/13/22 06/13/22 05:09 05:10 MCV MCH MCHC RDW Plt Count MPV Absolute Nucleated RBC Nucleated RBC % (auto) VBG pH 7.50 H VBG pCO2 42 VBG pO2 44 VBG HCO3 33 H VBG O2 Saturation 71.0 VBG Base Excess 9.6 Anion Gap Estim Creat Clear Calc Estimated GFR POC Glucose 156 H Random Glucose Calcium Phosphorus Magnesium Albumin Procalcitonin Microbiology Microbiology Results: Microbiology 06/02/22 Unknown Fungal Identification - Preliminary Abscess Intra-abdominal Verónica dubliniensis Procedures Date of Service Date of Service: 06/13/22 Arterial Line Size (Gauge): 16 Progress Note: A&P Assessment and plan (1) Perforated viscus: Status: Acute Assessment and Plan: S/P Callie's procedure I removed the IR drain on the right upper without difficulty plan to remove the rest of the drains everyday except for the pelvic drain left lower extremity cooler than the right Vascular consult diet as tolerated aspiration precautions Follow-up CT scan ordered for elevated white count keep on IV antibiotics Time Spent With Patient Time: Total time spent is greater than 50% in coordination of care (as documented) at patient's floor/unit and/or counseling patient: Quality Stroke Does the patient have a stroke diagnosis?: No VTE Prior VTE?: No VTE Risk Level:: Medical - moderate - high VTE Device Contraindication: N/A - Device Ordered VTE Drug Contraindication: N/A - Med Ordered
--- NOTE | 2022-06-13 11:35 | PM.CCPN ---
Subjective Subjective Date of Service: 06/13/22 Interval History: Mrs. Hankins was transferred to the ICU on May 23 from the OR after emergency sigmoid resection and colostomy for perforated viscus. The patient is a 62 year old female with history of Crohn's disease who presented to the ED May 18 complaining of 2 weeks of abdominal pain.? She?d been treated during that time with prednisone for a presumed Crohn?s flare.? On the morning of presentation, she developed sudden onset of sharp abdom pain.? Initial CT scan suggested severe constipation and a question of partial obstruction with worsening severe colitis of the sigmoid colon and proctitis, with increased wall thickening.? There was no evidence of free air.? She was treated with opiates and Zosyn.? The patient was admitted to Medicine and started on systemic steroids. ?Lactic acid was normal on May 19. The patient had no relief with tx.? She therefore underwent flex sig by Dr. Peralta on May 23 at which he found a large abscess cavity in the sigmoid with some associated ulceration, stool, and a second area of ulceration, which was biopsied.? Post procedure the patient had significant worsening of her abdominal exam; stat ct showed free air and fluid with a pelvic abscess. ?She was taken directly to the OR. At laparotomy, found a large perforation in the distal sigmoid, with two large stool balls immediately adjacent to the perforation.? There was extensive peritoneal fecal soilage, w marked indurated peritonitis especially in the pelvis, with the sigmoid covered in thick inflammatory rind.? She underwent extensive lysis of adhesions, sigmoid resection and colostomy, and abdominal washout.? The anesthetic course was marked by progressive septic shock.? The abdomen was closed and the patient was brought out intubated to ICU. On arrival to the ICU, the patient was in deep shock, and markedly hypovolemic.? Echo showed normal right and left heart, with hyperdynamic function and small IVC.? The patient was volume resuscitated, with excellent hemodynamic response.? A central line and arterial line were placed.? The patient was continued on Meropenam. The patient had a somewhat brook course since then.? Here renal indices lakshmi, but creat peaked at 1.7 on May 25.? She developed fever and multiple intraabdominal abscesses and had mult drains placed in IR:? In the left upper quadrant on 05/30, the pelvis on 05/30, the right lateral abdomen 06/02, and the left paracolic gutter on 06/02.? Flagyl was added to meropnenam. Subsequently she?s been improving slowly.? She was put on TPN.? The colostomy started putting out fecal material.? She was extubated on 06/07.? Since then has had some anxiety and mild ICU encephalopathy, along w moderate ICU myopathy.? We put a Kaofeed tube in on Jun 10 and started tube feeds with Vital, and started a Lasix drip.? The next day she c/o nausea and belly pain.? We sucked out 650cc from the Kaofeed tube.? Abandoned the tube feeds, went back to TPN, and put her on Reglan and erythromycin. Yesterday we restarted the tube feeds.? She diuresed vigorously, her mental status was better, and overall she had a good day. Today she was more somnolent, and this morning, at 9am she was noticed to have a cold left foot.? There was a clear demarcation from her warm leg down to the bend of the ankle, where it turned cold.? Pulses were dopplerable, but not palpable.? Capillary refill in the left foot was almost 7 seconds, compared to 2 seconds in the right foot.? But she had preserved sensation and motion.? She?s been making copious urine and her edema has noticeably shrunk.? Fentanyl and Precedex are off.? No WOB on HFNC 35L/35%, w SpO2 96-97%.? This morning?s CVBG showed 7.50/42/+9 (on Diamox).? HR is down to 90, SR, after starting on metoprolol 50 mg bid.? BP 125/61.? Afebrile.? No JVD at 40?.? Chest shows good excursion, clear to auscultation, normal expiratory phase.? Heart tones are soft, I heard no murmur or gallops.? The abdomen is mildly rotund, not distended.? Good bowel sounds.? She has good stool in the ostomy bag.? She c/o nausea, and we sucked out 200 cc from her Kaofeed tube.? (Still on erythromycin.)? Left pelvic drain (05/30) still putting out small amount of vuong milky-looking fluid.? The other left sided drain also turning a little milky.? Anasarca has resolved. Total i/o balance down to + 11.2 L. LABORATORY DATA: ?Below.? Notably, WBC up to 18, BUN/creat steady on the Lasix, alb 3.3. IMPRESSION: 1. Underlying obesity. 2. Perforated viscus w fecal peritonitis.? Obviously not acute.? Suspect she perforated the morning of admission when she had sudden onset pain.? The pathology report shows no evidence of Crohn?s.? Mult drains output is mostly serous.? Pelvic drain still purulent. 3. Tachycardia.? Likely SIRS.? Improv on metoprolol. 4. Acute resp failure.? WOB has resolved.? Continue the Lasix drip. 5. SABINE.? 2? septic shock.? Resolved. 6. ID:? On meropenem and flagyl.? Afebrile, but WBC is up.? Plan CT later today. 7. GI.? Still nauseous with residuals.? I?ll add standing Reglan order. 8. Cold left foot.? Our angio suite is down, will have to transfer for further mx. 9. Neuro/psych.? Precedex and fentanyl off, use Dilaudid for pain.? I?ll write for anxiety meds if she needs.? Not sure why she?s so lethargic today.? No evidence of any infection. 10. Moderate ICU myopathy.? Improving very slowly. 11. Anemia.? 2? phelebotomies and not making red cells. 12. Metabolic alkalosis.? Secondary to diuresis.? Started on Diamox. 13. Hyperglycemia.? SS insulin. 14. Hypokalemia.? Replete. 15. Hypophosphatemia.? Replete. 16. Hypomagnesemia.? Replete. 17. Nutrition. ?Restart enteral feeds after CT later today. 18. DVT proph.? On heparin and ICS. ADDENDUM:? By noon today, the left foot had warmed back up, and capill refill was down to 2 secs, same as the right foot.? Started Heparin about an hour before that.? Had arranged a transfer to [facility] but we cancelled it.? D/W Dr. Nevarez, he rec an arterial duplex scan, which was negative, and a CT aortogram with runoff, which showed a short segment of limited contrast opacification of the distal left tibialis anterior just above the ankle, artifactual versus focal stenosis, favor the former. Will continue the heparin till tomorrow morning, then d/c if the foot is still warm. Time (including consultation with [facility] and d/w the patient?s and w Dr. Nevarez and Dr. Hagan:? 120 min. Critical Care Time (minutes): 0 Physical Exam Vital Signs: Vital Signs: Last Vital Signs Temp 99.0 F 06/13/22 08:00 Pulse 88 06/13/22 11:00 Resp 15 06/13/22 11:00 BP 107/53 L 06/13/22 11:00 Pulse Ox 96 06/13/22 11:00 O2 Del Method 06/13/22 11:00 O2 Flow Rate 35 06/13/22 11:00 FiO2 35 06/13/22 11:00 Oxygen Flow Rate 35 06/12/22 21:00 BMI result Body Mass Index 40.7 Objective Data Labs CBC & Chem 7: 06/13/22 12:07 06/13/22 05:08 Labs: Laboratory Results - last 24 hr 06/12/22 06/12/22 06/12/22 12:06 18:13 23:33 WBC RBC Hgb Hct MCV MCH MCHC RDW Plt Count MPV Absolute Nucleated RBC Nucleated RBC % (auto) VBG pH VBG pCO2 VBG pO2 VBG HCO3 VBG O2 Saturation VBG Base Excess Sodium Potassium Chloride Carbon Dioxide Anion Gap BUN Creatinine Estim Creat Clear Calc Estimated GFR POC Glucose 164 H 171 H 146 H Random Glucose Calcium Phosphorus Magnesium Albumin Procalcitonin 06/13/22 06/13/22 06/13/22 05:08 05:08 05:08 WBC 18.0 H RBC 3.18 L Hgb 9.2 L Hct 29.5 L MCV 92.8 MCH 28.9 MCHC 31.2 RDW 16.0 Plt Count 551 H MPV 10.5 Absolute Nucleated RBC 0.000 Nucleated RBC % (auto) 0.0 VBG pH VBG pCO2 VBG pO2 VBG HCO3 VBG O2 Saturation VBG Base Excess Sodium 142 Potassium 3.8 D Chloride 97 Carbon Dioxide 31 H Anion Gap 18 BUN 16 Creatinine 0.68 Estim Creat Clear Calc 100.3 Estimated GFR > 60 POC Glucose Random Glucose 175 H Calcium 8.1 L Phosphorus 2.5 L Magnesium 1.9 Albumin 3.3 L Procalcitonin 1.11 06/13/22 06/13/22 05:09 05:10 WBC RBC Hgb Hct MCV MCH MCHC RDW Plt Count MPV Absolute Nucleated RBC Nucleated RBC % (auto) VBG pH 7.50 H VBG pCO2 42 VBG pO2 44 VBG HCO3 33 H VBG O2 Saturation 71.0 VBG Base Excess 9.6 Sodium Potassium Chloride Carbon Dioxide Anion Gap BUN Creatinine Estim Creat Clear Calc Estimated GFR POC Glucose 156 H Random Glucose Calcium Phosphorus Magnesium Albumin Procalcitonin Microbiology Microbiology Results: Microbiology 06/02/22 Unknown Abscess Intra-abdominal Fungal Identification - Preliminary Verónica dubliniensis 06/03/22 15:28 Blood - Subclavian Blood Culture - Final No growth after 5 days. 06/03/22 06:15 Blood - Venous Blood Culture - Final No growth after 5 days. 06/03/22 06:15 Blood - Venous Blood Culture - Final No growth after 5 days. 06/02/22 Unknown Peritoneal Fluid Gram Stain - Final 06/02/22 Unknown Peritoneal Fluid Routine Culture - Final Verónica albicans 06/02/22 Unknown Peritoneal Fluid Anaerobic Culture - Final 05/29/22 15:14 Blood - Venous Blood Culture - Final No growth after 5 days. 05/29/22 15:13 Blood - Venous Blood Culture - Final No growth after 5 days. 05/29/22 05:14 Blood - Venous Blood Culture - Final No growth after 5 days. 05/29/22 05:14 Blood - Venous Blood Culture - Final No growth after 5 days. 06/02/22 Unknown Abscess Intra-abdominal Gram Stain - Final 06/02/22 Unknown Abscess Intra-abdominal Routine Culture - Final 06/02/22 Unknown Abscess Intra-abdominal Anaerobic Culture - Final 06/02/22 Unknown Abscess Intra-abdominal Gram Stain - Final 06/02/22 Unknown Abscess Intra-abdominal Routine Culture - Final 05/28/22 Unknown Peritoneal Fluid Gram Stain - Final 05/28/22 Unknown Peritoneal Fluid Anaerobic Culture - Final 05/28/22 Unknown Peritoneal Fluid Body Fluid Culture - Final Verónica dubliniensis 05/29/22 15:05 Sputum - Suctioned Gram Stain - Final 05/29/22 15:05 Sputum - Suctioned Sputum Culture - Final Verónica dubliniensis 05/28/22 16:47 Sputum - Suctioned Gram Stain - Final 05/28/22 16:47 Sputum - Suctioned Sputum Culture - Final Verónica albicans 05/23/22 Unknown Peritoneal Fluid Gram Stain - Final 05/23/22 Unknown Peritoneal Fluid Routine Culture - Final Escherichia coli 05/23/22 Unknown Peritoneal Fluid Anaerobic Culture - Final Clostridium perfringens Bacteroides thetaiotaomicron 05/19/22 08:49 Blood - Venous Blood Culture - Final No growth after 5 days. 05/19/22 08:49 Blood - Venous Blood Culture - Final No growth after 5 days. Quality Stroke Does the patient have a stroke diagnosis?: No VTE Prior VTE?: No VTE Risk Level:: Medical - moderate - high VTE Device Contraindication: N/A - Device Ordered VTE Drug Contraindication: N/A - Med Ordered
[2022-06-13 11:55] LABS: Glucose, Whole Blood 173 mg/dL (60-115)
[2022-06-13] MEDS: Heparin Sodium,Porcine 5,000 UNIT/ML VIAL 5000 UNIT IVPUSH (12:14)
[2022-06-13] MEDS: Heparin Sodium,Porcine/1/2NS 25,000 UNIT/250 ML IV.SOLN 8.34 UNIT IVCONT (12:16)
[2022-06-13 12:28] LABS: Hematocrit 27.5 % (37.0-47.0); Hemoglobin 8.6 g/dl (12.0-16.0); Mean Corpuscular HGB Conc 31.3 g/dl (31.0-35.0); Mean Corpuscular Hemoglobin 29.1 pg (27.0-33.0); Mean Corpuscular Volume 92.9 fL (80.0-98.0); Mean Platelet Volume 10.2 fL (9.4-12.3); Platelet Count 494 X10*3/uL (160-400); Red Blood Count 2.96 X10*6/uL (4.20-5.50); Red Cell Distribution Width 16.5 % (11.0-16.0); White Blood Count 17.4 X10*3/uL (4.8-10.8)
[2022-06-13 12:34] LABS: INTERNATIONAL NORM RATIO 1.4 (0.9-1.1); Prothrombin Time 16.7 SEC (10.0-13.1)
[2022-06-13 12:36] LABS: PTT Heparin Drip 31.7 SEC (53-77.9)
[2022-06-13] MEDS: ondansetron HCL 4 MG/2 ML VIAL IVPUSH (13:16)
[2022-06-13 13:58] LABS: Venous Blood Gas Refer to POC result
[2022-06-13 13:58] LABS: VBG Base Excess 11.8 mmol/L; VBG HCO3 37 mmol/L (22-26); VBG pCO2 55 mmHg; VBG pH 7.44 (7.32-7.43); VBG pO2 57 mmHg
[2022-06-13 14:04] LABS: Lactic Acid 1.2 mmol/L (0.5-2.0)
--- NOTE | 2022-06-13 14:23 | PM.GIPN ---
Subjective Subjective Date of Service: 06/13/22 Interval History: feels tired Critical Care Time (minutes): 0 Physical Exam Vital Signs: Vital Signs: Last Vital Signs Temp 98.2 F 06/13/22 12:00 Pulse 88 06/13/22 14:00 Resp 19 06/13/22 14:00 BP 140/71 H 06/13/22 14:00 Pulse Ox 97 06/13/22 14:00 O2 Del Method 06/13/22 14:00 O2 Flow Rate 35 06/13/22 14:00 FiO2 35 06/13/22 14:00 Oxygen Flow Rate 35 06/12/22 21:00 BMI result Body Mass Index 40.7 GI: Other: soft Extrem: Other: edema present Objective Data Labs CBC & Chem 7: 06/13/22 12:07 06/13/22 05:08 Procedures Date of Service Date of Service: 06/13/22 Arterial Line Size (Gauge): 16 Progress Note: A&P Assessment and plan (1) Perforated viscus: Status: Acute Assessment and Plan: ultrasound being done to evaluate for clot 1 drain removed progressing slowly Time Spent With Patient Time: Total time spent is greater than 50% in coordination of care (as documented) at patient's floor/unit and/or counseling patient: Quality Stroke Does the patient have a stroke diagnosis?: No VTE Prior VTE?: No VTE Risk Level:: Medical - moderate - high VTE Device Contraindication: N/A - Device Ordered VTE Drug Contraindication: N/A - Med Ordered
--- NOTE | 2022-06-13 15:42 | MHC.CM.PN ---
Pt continues making slow progress in ICU: one NOHEMI drain removed today with a one a day approach per surgery with the exception of pelvic site. STR referrals updated in anticipation of eventual d/c. Vascular to see re: Left lower extremity. CM to follow
[2022-06-13] MEDS: iohexoL 350 MG/ML 100 ML INFUS..BTL IV (16:10)
--- NOTE | 2022-06-13 17:48 | MHC.SLORD ---
Speech Language Pathology Order Status: Attempted to see pt. in ICU in a.m. for po trials, patient sleeping. Will continue to follow.
[2022-06-13 17:53] LABS: Glucose, Whole Blood 129 mg/dL (60-115)
[2022-06-13 18:30] LABS: PTT Heparin Drip 45.1 SEC (53-77.9)
[2022-06-13] MEDS: Heparin Sodium,Porcine 5,000 UNIT/ML VIAL 4200 UNIT IVPUSH (19:13)
[2022-06-13] MEDS: HYDROmorphone HCl 0.5 MG/0.5 ML SYRINGE IVPUSH (22:08)
[2022-06-13] MEDS: 0.9 % Sodium Chloride Flush 3 ML SYRINGE IVFLUSH (23:35)
[2022-06-14] VITALS (29 sets, daily range): BP systolic 134–177; BP diastolic 66–94; PULSE 85–113; RESP 17–33; TEMP 36.9–37.3; O2SAT 89–100; BMI 39.6
[2022-06-14 00:15] LABS: Glucose, Whole Blood 135 mg/dL (60-115)
[2022-06-14] MEDS: Metoclopramide HCl 10 MG/2 ML VIAL 5 MG IVPUSH ×5 (00:18→23:37)
[2022-06-14 01:27] LABS: PTT Heparin Drip 56.9 SEC (53-77.9)
[2022-06-14] MEDS: metroNIDAZOLE/NS 500 MG/100 ML PIGGYBACK 100 MG IV ×3 (02:47→17:52)
--- NOTE | 2022-06-14 04:45 | PC.NURSE ---
Addendum entered by Justice Pardo RN 06/14/22 06:31: NO MEASURABLE OUTPUT FROM 4 NOHEMI DRAINS...COLSTOMY EMPTIED APPROX 100ml LIQUIED/LOOSE BROWN STOOL Original Note: CARE ASSUMED 23:15...AWAKE...CONVERSES BUT VAGUE RESPONSES AT TIMES...HI JACE CANNULA FIO2 354%..NO DISTRESS....KAOFEED TUBE IN PLACE.. PER SHIFT REPORT FEEDS OFF FOR PREVIOUS NAUSEA..KAOFEED TUBE ASPIRATED 225ML BILE..MD PRESENT..FEEDS TO BE HOLD OVERNIGHT AND RESTART 7AM..STARTED REGLAN PER NOV...HEPARIN DRIP INFUSING...LEFT AND RIGHT FEET WARM..LEFT POSTERIOR TIBIAL STRONG DOPPLER PULSE AND WEAK DORSALIS DOPPLER PULSE...RIGHT PALPABLE DORSALIS PULSE AND DOPPLER RIGHT POSTERIOR TIBIAL PULSE...DENIES DISCOMFORT..RESTFUL OVERNIGHT
[2022-06-14 05:14] LABS: VBG Base Excess 4.9 mmol/L; VBG HCO3 28 mmol/L (22-26); VBG pCO2 36 mmHg; VBG pH 7.49 (7.32-7.43); VBG pO2 53 mmHg
[2022-06-14 05:42] LABS: Hematocrit 25.8 % (37.0-47.0); Hemoglobin 8.3 g/dl (12.0-16.0); Mean Corpuscular HGB Conc 32.2 g/dl (31.0-35.0); Mean Corpuscular Hemoglobin 29.7 pg (27.0-33.0); Mean Corpuscular Volume 92.5 fL (80.0-98.0); Mean Platelet Volume 10.6 fL (9.4-12.3); Platelet Count 482 X10*3/uL (160-400); Red Blood Count 2.79 X10*6/uL (4.20-5.50); Red Cell Distribution Width 16.3 % (11.0-16.0); White Blood Count 14.2 X10*3/uL (4.8-10.8)
[2022-06-14 06:06] LABS: Anion Gap 13 (12-20); Blood Urea Nitrogen 18 mg/dL (9-16); Calcium 8.1 mg/dL (8.4-10.2); Carbon Dioxide 31 mmol/L (22-29); Chloride 103 mmol/L (96-108); Creatinine Clr Calc Pharmacy 108.5; Estimated Glomerular Filt Rate > 60; Glucose Random 110 mg/dL (60-115); Magnesium 1.9 mg/dL (1.6-2.6); Phosphorus 2.9 mg/dL (2.7-4.5); Sodium 144 mmol/L (135-145)
[2022-06-14] MEDS: Potassium Chloride Packet 20 MEQ PACKET 40 MEQ PO (07:58)
[2022-06-14] MEDS: acetaZOLAMIDE sodium 500 MG VIAL IVPUSH ×3 (07:58→23:37)
[2022-06-14] MEDS: 0.9 % Sodium Chloride Flush 3 ML SYRINGE IVFLUSH ×3 (07:58→23:36)
[2022-06-14] MEDS: Nystatin Powder 15 GM BOTTLE 1 APPL TOPICAL ×2 (08:00→20:57)
[2022-06-14] MEDS: Sodium,Potassium Phosphates POWD.PACK 1 PACKET PO ×4 (08:00→20:56)
[2022-06-14] MEDS: Metoprolol Tartrate 50 MG TABLET PO ×2 (08:01→20:56)
[2022-06-14] MEDS: Famotidine/PF 20 MG/2 ML VIAL IVPUSH (08:12)
[2022-06-14 08:15] LABS: Venous Blood Gas Refer to POC result
--- NOTE | 2022-06-14 08:55 | MHC.CLN ---
F/U TF ON HOLD OVER NIGHT R/T 225ML ASPIRATE OF BILE PER NSG TF TO RE-START 7AM WITH REGLAN PER MD RECOMMEND RE-STARTING VITAL 1.5 AT MAX GOAL RATE 40ML/HR TO PROVIDE 1440KCALS (24KCALS/KG), 65G PROTEIN, 733ML FREE WATER FROM FORMULA START FORMULA AT 10ML/HR AND INCREASE BY 10ML Q 4 HRS UNTIL MAX GOAL IS ACHIEVED MONITOR TOLERANCE, RESIDUALS AND LYTES
[2022-06-14] MEDS: Furosemide 200 MG in 0.9 % Sodium Chloride 80 ML IVCONT (10:08)
--- NOTE | 2022-06-14 10:53 | P.PNGS_ITS ---
Subjective Subjective Date of Service: 06/15/22 Interval history: Left foot now warm Duplex study, CT angiogram reviewed last night - did not suggest arterial insufficiency Having some high residuals periodically with tube feeds Stoma functioning, with good output Physical Exam Vital Signs: Vital Signs: Last Vital Signs Temp 98.5 F 06/14/22 08:00 Pulse 97 06/14/22 10:00 Resp 27 H 06/14/22 10:00 BP 158/86 H 06/14/22 10:00 Pulse Ox 97 06/14/22 10:00 O2 Del Method 06/14/22 10:00 O2 Flow Rate 35 06/14/22 10:00 FiO2 35 06/14/22 10:00 Oxygen Flow Rate 35 06/13/22 21:00 BMI result Body Mass Index 39.6 Const: Other: Off ventilator Resp: Other: Off the ventilator, low short of breath, as baseline after extubation Cardio: Rate: tachycardic GI: Other: Soft, stoma functioning, for drains remaining, outputl thin and serous except for pelvic drain Objective Data Active Medications Acetazolamide (Acetazolamide Sodium 500 Mg Vial) 500 mg IVPUSH Q8H [facility] Last Admin: 06/14/22 07:58 Dose: 500 mg Documented By: IGNACIA Famotidine (Famotidine/Pf 20 Mg/2 Ml Vial) 20 mg IVPUSH DAILY [facility] Last Admin: 06/14/22 08:12 Dose: 20 mg Documented By: IGNACIA Heparin Sodium (Porcine) (Heparin Sodium,Porcine 5,000 Unit/Ml Vial) 4,200 unit 40 unit/kg (4200 unit) IVPUSH PROTOCOL BOLUS PRN; Protocol PRN Reason: 40 unit/kg - Heparin Protocol Last Admin: 06/13/22 19:13 Dose: 4,200 unit Documented By: MIS Heparin Sodium (Porcine) (Heparin Sodium,Porcine 5,000 Unit/Ml Vial) 8,300 unit 80 unit/kg (8300 unit) IVPUSH PROTOCOL BOLUS PRN; Protocol PRN Reason: 80 unit/kg - Heparin Protocol Hydromorphone HCl (Hydromorphone Hcl 0.5 Mg/0.5 Ml Syringe) 0.5 mg IVPUSH Q1H PRN; Protocol PRN Reason: mild pain Last Admin: 06/13/22 22:08 Dose: 0.5 mg Documented By: MIS Hydromorphone HCl (Hydromorphone Hcl 1 Mg/Ml Syringe) 1 mg IVPUSH Q1H PRN; Protocol PRN Reason: mod-severe pain Last Admin: 06/13/22 08:30 Dose: 1 mg Documented By: SANTOS Metronidazole (Flagyl) 500 mg in 100 mls @ 100 mls/hr IV Q8H [facility] Last Admin: 06/14/22 10:05 Dose: 100 mls/hr Documented By: INGACIA Meropenem 1 gm/ Sodium (Chloride) 100 mls @ 200 mls/hr IV Q8H [facility] Last Infusion: 06/14/22 10:53 Dose: 0 mls/hr Documented By: IGNACIA Furosemide 200 mg/ Sodium (Chloride) 100 mls @ 2.5 mls/hr IVCONT .Q24H [facility] Last Admin: 06/14/22 10:08 Dose: 5 mg/hr, 2.5 mls/hr Documented By: IGNACIA Erythromycin Lactobionate 500 (mg/ Sodium Chloride) 100 mls @ 100 mls/hr IV Q8H [facility] Last Infusion: 06/14/22 09:12 Dose: 0 mls/hr Documented By: IGNACIA Heparin Sodium/Sodium Chloride (Heparin Sodium,Porcine/1/2ns) 25,000 unit in 250 mls @ 0 mls/hr IVCONT .Q0M [facility]; Protocol Last Titration: 06/14/22 08:00 Dose: 0 units/kg/hr, 0 mls/hr Documented By: IGNACIA Co-signed By: KEIRA Insulin Human Lispro (Insulin Lispro 100 Unit/Ml 3 Ml Vial) 0 unit SUBCUT Q6H [facility]; Protocol Last Admin: 06/14/22 07:23 Dose: Not Given Documented By: IGNACIA Non-Admin Reason: No Insulin Coverage Metoclopramide HCl (Metoclopramide Hcl 10 Mg/2 Ml Vial) 5 mg IVPUSH Q6H [facility] Last Admin: 06/14/22 07:46 Dose: 5 mg Documented By: IGNACIA Metoprolol Tartrate (Metoprolol Tartrate 50 Mg Tablet) 50 mg PO BID [facility]; Protocol Last Admin: 06/14/22 08:01 Dose: 50 mg Documented By: IGNACIA Nystatin (Nystatin Powder 15 Gm Bottle) 1 appl TOPICAL BID [facility]; Protocol Last Admin: 06/14/22 08:00 Dose: 1 appl Documented By: IGNACIA Ondansetron HCl (Ondansetron Hcl 4 Mg/2 Ml Vial) 4 mg IVPUSH Q6H PRN PRN Reason: Nausea Last Admin: 06/13/22 13:16 Dose: 4 mg Documented By: SANTOS Pharmacy Consult (Consult Rx Perform Med Rec) 1 each MISCELLANE ONCE PRN PRN Reason: Consult order Potassium Phos/Sodium Phos (Sodium,Potassium Phosphates Powd.Pack) 1 packet PO QID [facility] Last Admin: 06/14/22 08:00 Dose: 1 packet Documented By: IGNACIA Sodium Chloride (0.9 % Sodium Chloride Flush 3 Ml Syringe) 3 ml IVFLUSH QSHIFT [facility] Last Admin: 06/14/22 07:58 Dose: 3 ml Documented By: IGNACIA Labs CBC & Chem 7: 06/15/22 05:13 06/15/22 05:13 Labs: Laboratory Results - last 24 hr 06/13/22 06/13/22 06/13/22 11:51 12:07 12:07 MCV 92.9 MCH 29.1 MCHC 31.3 RDW 16.5 H Plt Count 494 H MPV 10.2 Absolute Nucleated RBC 0.000 Nucleated RBC % (auto) 0.0 PT 16.7 H INR 1.4 H aPTT Heparin Protocol 31.7 L VBG pH VBG pCO2 VBG pO2 VBG HCO3 VBG O2 Saturation VBG Base Excess Anion Gap Estim Creat Clear Calc Estimated GFR POC Glucose 173 H Random Glucose Lactic Acid Calcium Phosphorus Magnesium 06/13/22 06/13/22 06/13/22 13:47 13:53 17:47 MCV MCH MCHC RDW Plt Count MPV Absolute Nucleated RBC Nucleated RBC % (auto) PT INR aPTT Heparin Protocol VBG pH 7.44 H VBG pCO2 55 VBG pO2 57 VBG HCO3 37 H VBG O2 Saturation 86.0 VBG Base Excess 11.8 Anion Gap Estim Creat Clear Calc Estimated GFR POC Glucose 129 H Random Glucose Lactic Acid 1.2 Calcium Phosphorus Magnesium 06/13/22 06/14/22 06/14/22 18:08 00:10 01:05 MCV MCH MCHC RDW Plt Count MPV Absolute Nucleated RBC Nucleated RBC % (auto) PT INR aPTT Heparin Protocol 45.1 L D 56.9 D VBG pH VBG pCO2 VBG pO2 VBG HCO3 VBG O2 Saturation VBG Base Excess Anion Gap Estim Creat Clear Calc Estimated GFR POC Glucose 135 H Random Glucose Lactic Acid Calcium Phosphorus Magnesium 06/14/22 06/14/22 06/14/22 05:05 05:05 05:08 MCV 92.5 MCH 29.7 MCHC 32.2 RDW 16.3 H Plt Count 482 H MPV 10.6 Absolute Nucleated RBC 0.000 Nucleated RBC % (auto) 0.0 PT INR aPTT Heparin Protocol VBG pH 7.49 H VBG pCO2 36 VBG pO2 53 VBG HCO3 28 H VBG O2 Saturation 83.0 VBG Base Excess 4.9 Anion Gap 13 Estim Creat Clear Calc 108.5 Estimated GFR > 60 POC Glucose Random Glucose 110 Lactic Acid Calcium 8.1 L Phosphorus 2.9 Magnesium 1.9 Microbiology Microbiology Results: Microbiology 06/02/22 Unknown Fungal Identification - Preliminary Abscess Intra-abdominal Verónica dubliniensis Procedures Date of Service Date of Service: 06/14/22 Arterial Line Size (Gauge): 16 Progress Note: A&P Assessment and plan (1) Status post colostomy: Status: Acute Assessment and Plan: Left foot not cold anymore Heparin drip to be discontinued plan to removed another drain once heparin is off Has residuals on tube feeds - likely some gastric ileus; CT does not show suction WBC down Continue antibiotics Discussed with ICU Time Spent With Patient Time: Total time spent is greater than 50% in coordination of care (as documented) at patient's floor/unit and/or counseling patient: Quality Stroke Does the patient have a stroke diagnosis?: No VTE Prior VTE?: No VTE Risk Level:: Medical - moderate - high VTE Device Contraindication: N/A - Device Ordered VTE Drug Contraindication: N/A - Med Ordered
[2022-06-14 12:49] LABS: Glucose, Whole Blood 123 mg/dL (60-115)
--- NOTE | 2022-06-14 13:22 | PM.IDPN ---
Subjective Subjective Date of Service: 06/14/22 Critical Care Time (minutes): 15 Comment: She is on some supplemental oxygen high flow She has WBC down to 14.2 today I had seen her earlier She had secondary peritonitis and also fungal peritonitis with verónica albicans and verónica dubliensis She has Caspofungin 05/29,05/30,05/31,06/03/06/04 She also had Voricoazole 06/03 and 06/04,06/05. She is going to get drain removed likely soon. She has left hand tremor and some hallucinating (talking to person not there) today Objective Data Labs CBC & Chem 7: 06/14/22 05:05 06/14/22 05:05 Labs: Laboratory Results - last 24 hr 06/13/22 06/13/22 06/13/22 13:47 13:53 17:47 WBC RBC Hgb Hct MCV MCH MCHC RDW Plt Count MPV Absolute Nucleated RBC Nucleated RBC % (auto) aPTT Heparin Protocol VBG pH 7.44 H VBG pCO2 55 VBG pO2 57 VBG HCO3 37 H VBG O2 Saturation 86.0 VBG Base Excess 11.8 Sodium Potassium Chloride Carbon Dioxide Anion Gap BUN Creatinine Estim Creat Clear Calc Estimated GFR POC Glucose 129 H Random Glucose Lactic Acid 1.2 Calcium Phosphorus Magnesium 06/13/22 06/14/22 06/14/22 18:08 00:10 01:05 WBC RBC Hgb Hct MCV MCH MCHC RDW Plt Count MPV Absolute Nucleated RBC Nucleated RBC % (auto) aPTT Heparin Protocol 45.1 L D 56.9 D VBG pH VBG pCO2 VBG pO2 VBG HCO3 VBG O2 Saturation VBG Base Excess Sodium Potassium Chloride Carbon Dioxide Anion Gap BUN Creatinine Estim Creat Clear Calc Estimated GFR POC Glucose 135 H Random Glucose Lactic Acid Calcium Phosphorus Magnesium 06/14/22 06/14/22 06/14/22 05:05 05:05 05:08 WBC 14.2 H RBC 2.79 L Hgb 8.3 L Hct 25.8 L MCV 92.5 MCH 29.7 MCHC 32.2 RDW 16.3 H Plt Count 482 H MPV 10.6 Absolute Nucleated RBC 0.000 Nucleated RBC % (auto) 0.0 aPTT Heparin Protocol VBG pH 7.49 H VBG pCO2 36 VBG pO2 53 VBG HCO3 28 H VBG O2 Saturation 83.0 VBG Base Excess 4.9 Sodium 144 Potassium 3.0 L D Chloride 103 Carbon Dioxide 31 H Anion Gap 13 BUN 18 H Creatinine 0.62 Estim Creat Clear Calc 108.5 Estimated GFR > 60 POC Glucose Random Glucose 110 Lactic Acid Calcium 8.1 L Phosphorus 2.9 Magnesium 1.9 06/14/22 12:45 WBC RBC Hgb Hct MCV MCH MCHC RDW Plt Count MPV Absolute Nucleated RBC Nucleated RBC % (auto) aPTT Heparin Protocol VBG pH VBG pCO2 VBG pO2 VBG HCO3 VBG O2 Saturation VBG Base Excess Sodium Potassium Chloride Carbon Dioxide Anion Gap BUN Creatinine Estim Creat Clear Calc Estimated GFR POC Glucose 123 H Random Glucose Lactic Acid Calcium Phosphorus Magnesium Microbiology Microbiology Results: Microbiology 06/02/22 Unknown Abscess Intra-abdominal Fungal Identification - Preliminary Verónica dubliniensis 06/03/22 15:28 Blood - Subclavian Blood Culture - Final No growth after 5 days. 06/03/22 06:15 Blood - Venous Blood Culture - Final No growth after 5 days. 06/03/22 06:15 Blood - Venous Blood Culture - Final No growth after 5 days. 06/02/22 Unknown Peritoneal Fluid Gram Stain - Final 06/02/22 Unknown Peritoneal Fluid Routine Culture - Final Verónica albicans 06/02/22 Unknown Peritoneal Fluid Anaerobic Culture - Final 05/29/22 15:14 Blood - Venous Blood Culture - Final No growth after 5 days. 05/29/22 15:13 Blood - Venous Blood Culture - Final No growth after 5 days. 05/29/22 05:14 Blood - Venous Blood Culture - Final No growth after 5 days. 05/29/22 05:14 Blood - Venous Blood Culture - Final No growth after 5 days. 06/02/22 Unknown Abscess Intra-abdominal Gram Stain - Final 06/02/22 Unknown Abscess Intra-abdominal Routine Culture - Final 06/02/22 Unknown Abscess Intra-abdominal Anaerobic Culture - Final 06/02/22 Unknown Abscess Intra-abdominal Gram Stain - Final 06/02/22 Unknown Abscess Intra-abdominal Routine Culture - Final 05/28/22 Unknown Peritoneal Fluid Gram Stain - Final 05/28/22 Unknown Peritoneal Fluid Anaerobic Culture - Final 05/28/22 Unknown Peritoneal Fluid Body Fluid Culture - Final Verónica dubliniensis 05/29/22 15:05 Sputum - Suctioned Gram Stain - Final 05/29/22 15:05 Sputum - Suctioned Sputum Culture - Final Verónica dubliniensis 05/28/22 16:47 Sputum - Suctioned Gram Stain - Final 05/28/22 16:47 Sputum - Suctioned Sputum Culture - Final Verónica albicans 05/23/22 Unknown Peritoneal Fluid Gram Stain - Final 05/23/22 Unknown Peritoneal Fluid Routine Culture - Final Escherichia coli 05/23/22 Unknown Peritoneal Fluid Anaerobic Culture - Final Clostridium perfringens Bacteroides thetaiotaomicron 05/19/22 08:49 Blood - Venous Blood Culture - Final No growth after 5 days. 05/19/22 08:49 Blood - Venous Blood Culture - Final No growth after 5 days. Physical Exam Vital Signs: Vital Signs: Last Vital Signs Temp 98.5 F 06/14/22 08:00 Pulse 106 H 06/14/22 13:00 Resp 28 H 06/14/22 13:00 BP 156/91 H 06/14/22 13:00 Pulse Ox 96 06/14/22 13:00 O2 Del Method 06/14/22 13:00 O2 Flow Rate 5 06/14/22 13:00 FiO2 35 06/14/22 12:00 Oxygen Flow Rate 35 06/13/22 21:00 BMI result Body Mass Index 39.6 Const: General: cooperative Eyes: General: appearance normal, both eyes and all related structures Pupils: Equal, round and reactive pupils present Resp: Effort & Inspection: normal respiratory effort Cardio: Rate: regular rate Rhythm: regular rhythm GI: Palpation (GI): Soft to palpation and nontender Neuro: Cranial nerves: Yes Equal, round and reactive pupils present Extrem: Other: slight tremor left hand Assessment and Plan Assessment and plan (1) Peritonitis: Problem details: She is now apparently day 13 merem/broad spectrum and metronidazole. She has completed treatment for fungal peritonitis as well She has had sigmoid resection and has been on antibiotics(doesnt matter duration antibiotics following procedure as much as total duration antibiotics) Status: Acute Assessment and Plan: Would stop metronidazole and merem tomorrow if WBC 00041 or less (2) Crohn's disease: Status: Acute Time Spent With Patient Time: Total time spent is greater than 50% in coordination of care (as documented) at patient's floor/unit and/or counseling patient: Procedures Arterial Line Size (Gauge): 16
--- NOTE | 2022-06-14 15:59 | MHC.SL.SWA ---
Speech Pathologist Impression: Oropharyngeal dysphagia Risk of Aspiration Due to: Medically Fragile Hx of Recent Extubation Weak Cough Dysphasia Diet Status: Downgrade Liquid Consistency and Strategies for Safe Swallow: Liquid Intake Recommendation: NPO Solid Food Consistency: Dietary Recommendations: NPO Oral Medication Intake: NPO Please contact the pharmacy regarding appropriate crushable or liquid drug formulations that are available whenever modified delivery is recommended. Supervision While Eating and Drinking for Safe Swallow: PO with OPTICIAN MANAGER Swallowing Recommended Treatments: Compens. Strategy Educat. Recommendation for Speech: Inpatient Speech Therapy Comment: Pt w/ oropharyngeal dysphagia s/p extubation. Frequency/Duration: M-F Date Range for Service Req: Timeline to reassess: Well Driller Helper Clinican/Clinical Fellow: No Supervisory Statement: I have reviewed and agree with the student/clinical fellow's documentation: N/A Speech Language Pathologist: Majo Grissom M.A., CCC-OPTICIAN MANAGER
--- NOTE | 2022-06-14 16:07 | PM.GIPN ---
Subjective Subjective Date of Service: 06/14/22 Interval History: up in chair Critical Care Time (minutes): 0 Physical Exam Vital Signs: Vital Signs: Last Vital Signs Temp 98.5 F 06/14/22 08:00 Pulse 105 H 06/14/22 15:00 Resp 30 H 06/14/22 15:00 BP 150/94 H 06/14/22 15:00 Pulse Ox 97 06/14/22 15:00 O2 Del Method 06/14/22 15:00 O2 Flow Rate 5 06/14/22 15:00 FiO2 35 06/14/22 12:00 Oxygen Flow Rate 35 06/13/22 21:00 BMI result Body Mass Index 39.6 GI: Other: abdomen is soft without focal tenderness Objective Data Labs CBC & Chem 7: 06/14/22 05:05 06/14/22 05:05 Microbiology Microbiology Results: Microbiology 06/02/22 Unknown Abscess Intra-abdominal Fungal Identification - Preliminary Verónica dubliniensis 06/03/22 15:28 Blood - Subclavian Blood Culture - Final No growth after 5 days. 06/03/22 06:15 Blood - Venous Blood Culture - Final No growth after 5 days. 06/03/22 06:15 Blood - Venous Blood Culture - Final No growth after 5 days. 06/02/22 Unknown Peritoneal Fluid Gram Stain - Final 06/02/22 Unknown Peritoneal Fluid Routine Culture - Final Verónica albicans 06/02/22 Unknown Peritoneal Fluid Anaerobic Culture - Final 05/29/22 15:14 Blood - Venous Blood Culture - Final No growth after 5 days. 05/29/22 15:13 Blood - Venous Blood Culture - Final No growth after 5 days. 05/29/22 05:14 Blood - Venous Blood Culture - Final No growth after 5 days. 05/29/22 05:14 Blood - Venous Blood Culture - Final No growth after 5 days. 06/02/22 Unknown Abscess Intra-abdominal Gram Stain - Final 06/02/22 Unknown Abscess Intra-abdominal Routine Culture - Final 06/02/22 Unknown Abscess Intra-abdominal Anaerobic Culture - Final 06/02/22 Unknown Abscess Intra-abdominal Gram Stain - Final 06/02/22 Unknown Abscess Intra-abdominal Routine Culture - Final 05/28/22 Unknown Peritoneal Fluid Gram Stain - Final 05/28/22 Unknown Peritoneal Fluid Anaerobic Culture - Final 05/28/22 Unknown Peritoneal Fluid Body Fluid Culture - Final Verónica dubliniensis 05/29/22 15:05 Sputum - Suctioned Gram Stain - Final 05/29/22 15:05 Sputum - Suctioned Sputum Culture - Final Verónica dubliniensis 05/28/22 16:47 Sputum - Suctioned Gram Stain - Final 05/28/22 16:47 Sputum - Suctioned Sputum Culture - Final Verónica albicans 05/23/22 Unknown Peritoneal Fluid Gram Stain - Final 05/23/22 Unknown Peritoneal Fluid Routine Culture - Final Escherichia coli 05/23/22 Unknown Peritoneal Fluid Anaerobic Culture - Final Clostridium perfringens Bacteroides thetaiotaomicron 05/19/22 08:49 Blood - Venous Blood Culture - Final No growth after 5 days. 05/19/22 08:49 Blood - Venous Blood Culture - Final No growth after 5 days. Procedures Date of Service Date of Service: 06/14/22 Arterial Line Size (Gauge): 16 Progress Note: A&P Assessment and plan (1) Perforated viscus: Status: Acute Assessment and Plan: making slow progress continue supportive care. Time Spent With Patient Time: Total time spent is greater than 50% in coordination of care (as documented) at patient's floor/unit and/or counseling patient: Quality Stroke Does the patient have a stroke diagnosis?: No VTE Prior VTE?: No VTE Risk Level:: Medical - moderate - high VTE Device Contraindication: N/A - Device Ordered VTE Drug Contraindication: N/A - Med Ordered
[2022-06-14 17:50] LABS: Glucose, Whole Blood 126 mg/dL (60-115)
--- NOTE | 2022-06-14 20:41 | P.PNCC_ITS ---
Subjective Subjective Date of Service: 06/14/22 Interval History: Mrs. Hankins was transferred to the ICU on May 23 from the OR after emergency sigmoid resection and colostomy for perforated viscus. The patient is a 62 year old female with history of Crohn's disease who presented to the ED May 18 complaining of 2 weeks of abdominal pain.? Sh e?d been treated during that time with prednisone for a presumed Crohn?s flare.? On the morning of presentation, she developed sudden onset of sharp abdom pain.? Initial CT scan suggested severe constipation and a question of partial obstruction with worsening severe colitis of the sigmoid colon and proctitis, with increased wall thickening.? There was no evidence of free air.? She was treated with opiates and Zosyn.? The patient was admitted to Medicine and started on systemic steroids. ?Lactic acid was normal on May 19. The patient had no relief with tx.? She therefore underwent flex sig by Dr. Peralta on May 23 at which he found a large abscess cavity in the sigmoid with some associated ulceration, stool, and a second area of ulceration, which was biopsied.? Post procedure the patient had significant worsening of her abdominal exam; stat ct showed free air and fluid with a pelvic abscess. ?She was taken directly to the OR. At laparotomy, found a large perforation in the distal sigmoid, with two large stool balls immediately adjacent to the perforation.? There was extensive peritoneal fecal soilage, w marked indurated peritonitis especially in the pelvis, with the sigmoid covered in thick inflammatory rind.? She underwent extensive lysis of adhesions, sigmoid resection and colostomy, and abdominal washout.? The anesthetic course was marked by progressive septic shock.? The abdomen was closed and the patient was brought out intubated to ICU. On arrival to the ICU, the patient was in deep shock, and markedly hypovolemic.? Echo showed normal right and left heart, with hyperdynamic function and small IVC.? The patient was volume resuscitated, with excellent hemodynamic response.? A central line and arterial line were placed.? The patient was continued on Meropenam. The patient had a somewhat brook course since then.? Here renal indices lakshmi, but creat peaked at 1.7 on May 25.? She developed fever and multiple intraabdominal abscesses and had mult drains placed in IR:? In the left upper quadrant on 05/30, the pelvis on 05/30, the right lateral abdomen 06/02, and the left paracolic gutter on 06/02.? Flagyl was added to meropnenam. Subsequently she?s been improving slowly.? She was put on TPN.? The colostomy started putting out fecal material.? She was extubated on 06/07.? Since then has had some anxiety and mild ICU encephalopathy, along w moderate ICU myopathy.? We put a Kaofeed tube in on Jun 10 and started tube feeds with Vital, and started a Lasix drip.? She?s had some high residuals.? Put her on Reglan and erythromycin. Yesterday morning she was found to have a cold left foot, with loss of palp pulses and decreased capill refill.? Over the course of 3 hours or so, the foot warmed up and capill refill returned to normal.? We started her on heparin.? Arterial duplex US showed no hemod signif stenosis.? Aortic CTA w runoff showed a short segment of limited contrast opacification of the distal left tibialis anterior just above the ankle, artifactual vs focal stenosis, more likely the former, w subsequent opacification/flow within the dorsalis pedis. ?Otherwise, patent runoff bilaterally, w no hemodynamically significant stenosis or arterial cutoff. CT abdomen done yesterday bec of increasing WBC showed no intra-abdominal free air, dilated bowel loops or bowel wall thickening.? There were multiple loculated and/or incompletely loculated peripherally enhancing fluid collections in the abdomen and pelvis suspicious for infected collections/abscesses, which Dr. Hagan felt were improved compared to the prior study. Today OOB in chair and more animated than yesterday.? Breathing easy, no WOB.? On 5L NC, Sat was 100%.? On 3L, Sat is 97%.? This morning?s CVBG showed 7.49/36/+5 (on Diamox).? HR 107, SR, on metoprolol 50 mg bid.? BP 145/79.? Afeb rile.? No JVD in the chair.? Chest shows good excursion, clear to auscultation, normal expiratory phase.? Heart tones are soft, I heard no murmur or gallops.? The abdomen is mildly rotund, not distended.? Good bowel sounds.? She has small amount dark liquid in the ostomy bag.? Left pelvic drain (05/30) still putting out small amount of vuong milky-looking fluid.? Anasarca has resolved, still has at least 2+ LE edema.? Left foot is very slightly cooler than the right.? Palpable pulses come and go.? Capillary refill is equivalent to the right side.? UE strength is 2-3/5, LE is 2/5. Total i/o balance down to +8.5 L. LABORATORY DATA: ?Below.? Notably, WBC down to 14, BUN/creat steady on the Lasix drip, potassium 3.0. IMPRESSION: 1. Underlying obesity. 2. Perforated viscus w fecal peritonitis.? Obviously not acute.? Suspect she perforated the morning of admission when she had sudden onset pain.? The pathology report shows no evidence of Crohn?s.? Mult drains output is mostly serous.? Pelvic drain still purulent. 3. Tachycardia.? Likely SIRS.? Increase metoprolol to 75 mg bid. 4. Acute resp failure.? WOB has resolved.? Continue the Lasix drip. 5. SABINE.? 2? septic shock.? Resolved. 6. ID:? On meropenem and flagyl.? Afebrile.? CT showed nothing new.? Plan to stop metronidazole and merem tomorrow if WBC 20212 or less. 7. GI.? Still some nausea with residuals.? Added standing Reglan and erythromycin.? Follow. 8. Cold left foot.? Resolved mostly spontaneously and with one day of Heparin.? Stopped the heparin this morning.? Vascular w/u was essentially negative.? Follow. 9. Neuro/psych.? Precedex and fentanyl off, using Dilaudid for pain.? Still somewhat confused.? Improving with Diuresis. 10. Moderate ICU myopathy.? Improving very slowly. 11. Anemia.? 2? phelebotomies and not making red cells. 12. Metabolic alkalosis.? Secondary to diuresis.? On Diamox. 13. Hyperglycemia.? SS insulin. 14. Hypokalemia.? Replete. 15. Hypophosphatemia.? Replete. 16. Hypomagnesemia.? Replete. 17. Nutrition. ?On Vital. 18. DVT proph.? On heparin and ICS. Critical Care Time (minutes): 0 Physical Exam Vital Signs: Vital Signs: Last Vital Signs Temp 99.1 F 06/14/22 16:00 Pulse 102 H 06/14/22 20:00 Resp 21 H 06/14/22 20:00 BP 146/73 H 06/14/22 20:00 Pulse Ox 98 06/14/22 20:00 O2 Del Method 06/14/22 20:00 O2 Flow Rate 5 06/14/22 20:00 FiO2 35 06/14/22 12:00 Oxygen Flow Rate 35 06/13/22 21:00 BMI result Body Mass Index 39.6 Objective Data Labs CBC & Chem 7: 06/14/22 05:05 06/14/22 05:05 Labs: Laboratory Results - last 24 hr 06/14/22 06/14/22 06/14/22 00:10 01:05 05:05 WBC 14.2 H RBC 2.79 L Hgb 8.3 L Hct 25.8 L MCV 92.5 MCH 29.7 MCHC 32.2 RDW 16.3 H Plt Count 482 H MPV 10.6 Absolute Nucleated RBC 0.000 Nucleated RBC % (auto) 0.0 aPTT Heparin Protocol 56.9 D VBG pH VBG pCO2 VBG pO2 VBG HCO3 VBG O2 Saturation VBG Base Excess Sodium Potassium Chloride Carbon Dioxide Anion Gap BUN Creatinine Estim Creat Clear Calc Estimated GFR POC Glucose 135 H Random Glucose Calcium Phosphorus Magnesium 06/14/22 06/14/22 06/14/22 05:05 05:08 12:45 WBC RBC Hgb Hct MCV MCH MCHC RDW Plt Count MPV Absolute Nucleated RBC Nucleated RBC % (auto) aPTT Heparin Protocol VBG pH 7.49 H VBG pCO2 36 VBG pO2 53 VBG HCO3 28 H VBG O2 Saturation 83.0 VBG Base Excess 4.9 Sodium 144 Potassium 3.0 L D Chloride 103 Carbon Dioxide 31 H Anion Gap 13 BUN 18 H Creatinine 0.62 Estim Creat Clear Calc 108.5 Estimated GFR > 60 POC Glucose 123 H Random Glucose 110 Calcium 8.1 L Phosphorus 2.9 Magnesium 1.9 06/14/22 17:41 WBC RBC Hgb Hct MCV MCH MCHC RDW Plt Count MPV Absolute Nucleated RBC Nucleated RBC % (auto) aPTT Heparin Protocol VBG pH VBG pCO2 VBG pO2 VBG HCO3 VBG O2 Saturation VBG Base Excess Sodium Potassium Chloride Carbon Dioxide Anion Gap BUN Creatinine Estim Creat Clear Calc Estimated GFR POC Glucose 126 H Random Glucose Calcium Phosphorus Magnesium Microbiology Microbiology Results: Microbiology 06/02/22 Unknown Abscess Intra-abdominal Fungal Identification - Preliminary Verónica dubliniensis 06/03/22 15:28 Blood - Subclavian Blood Culture - Final No growth after 5 days. 06/03/22 06:15 Blood - Venous Blood Culture - Final No growth after 5 days. 06/03/22 06:15 Blood - Venous Blood Culture - Final No growth after 5 days. 06/02/22 Unknown Peritoneal Fluid Gram Stain - Final 06/02/22 Unknown Peritoneal Fluid Routine Culture - Final Verónica albicans 06/02/22 Unknown Peritoneal Fluid Anaerobic Culture - Final 05/29/22 15:14 Blood - Venous Blood Culture - Final No growth after 5 days. 05/29/22 15:13 Blood - Venous Blood Culture - Final No growth after 5 days. 05/29/22 05:14 Blood - Venous Blood Culture - Final No growth after 5 days. 05/29/22 05:14 Blood - Venous Blood Culture - Final No growth after 5 days. 06/02/22 Unknown Abscess Intra-abdominal Gram Stain - Final 06/02/22 Unknown Abscess Intra-abdominal Routine Culture - Final 06/02/22 Unknown Abscess Intra-abdominal Anaerobic Culture - Final 06/02/22 Unknown Abscess Intra-abdominal Gram Stain - Final 06/02/22 Unknown Abscess Intra-abdominal Routine Culture - Final 05/28/22 Unknown Peritoneal Fluid Gram Stain - Final 05/28/22 Unknown Peritoneal Fluid Anaerobic Culture - Final 05/28/22 Unknown Peritoneal Fluid Body Fluid Culture - Final Verónica dubliniensis 05/29/22 15:05 Sputum - Suctioned Gram Stain - Final 05/29/22 15:05 Sputum - Suctioned Sputum Culture - Final Verónica dubliniensis 05/28/22 16:47 Sputum - Suctioned Gram Stain - Final 05/28/22 16:47 Sputum - Suctioned Sputum Culture - Final Verónica albicans 05/23/22 Unknown Peritoneal Fluid Gram Stain - Final 05/23/22 Unknown Peritoneal Fluid Routine Culture - Final Escherichia coli 05/23/22 Unknown Peritoneal Fluid Anaerobic Culture - Final Clostridium perfringens Bacteroides thetaiotaomicron 05/19/22 08:49 Blood - Venous Blood Culture - Final No growth after 5 days. 05/19/22 08:49 Blood - Venous Blood Culture - Final No growth after 5 days. Quality Stroke Does the patient have a stroke diagnosis?: No VTE Prior VTE?: No VTE Risk Level:: Medical - moderate - high VTE Device Contraindication: N/A - Device Ordered VTE Drug Contraindication: N/A - Med Ordered
[2022-06-15] VITALS (24 sets, daily range): BP systolic 128–168; BP diastolic 55–93; PULSE 23–110; RESP 16–30; TEMP 37.1–37.6; O2SAT 92–100; BMI 37.8
[2022-06-15 00:02] LABS: Glucose, Whole Blood 96 mg/dL (60-115)
[2022-06-15] MEDS: Heparin Sodium,Porcine 5,000 UNIT/ML VIAL 5000 UNIT SUBCUT ×3 (01:08→16:59)
[2022-06-15] MEDS: metroNIDAZOLE/NS 500 MG/100 ML PIGGYBACK 100 MG IV ×3 (01:09→17:31)
[2022-06-15] MEDS: HYDROmorphone HCl 0.5 MG/0.5 ML SYRINGE IVPUSH ×4 (02:26→21:26)
--- NOTE | 2022-06-15 03:39 | PC.NURSE ---
CARE ASSUMED 23:15..AWAKE..CONVERSES...VAGUE RESPONSES AT TIMES..CONTINUES LASIX DRIP 5 MG/HR & DIAMOX IV PER NOV...[place] DRAINING YELLOW URINE...NOHEMI DRAINS X4 WITH SCANT OUTPUT..COLOSTOMY EMPTIED 100ml LIQUIED BROWN STOOL...TRICKLE FEEDS 10 CC/HR VIA KAOFEED TUBE....50CC BILIOUS ASPIRATE AT 12AM AND CURRENTLY 55CC ASPIRATE....C/O GENERALIZED PAIN AND ABDOMINAL PAIN WITH COUGHING...PRN DILAUDID X1 GIVEN WITH RELIEF...BOTH FEET EDEMATOUS BUT WARM...PEDAL PULSES: DOPPLER LEFT POSTERIOR PULSE EASILY AUDIBLE...WEAK LEFT DORSALIS DOPPLER PULSE...RIGHT FOOT DORSALIS AND POSTERIOR TIBIAL PULSES WEAK BUT AUDIBLE VIA DOPPLER
[2022-06-15] MEDS: Metoclopramide HCl 10 MG/2 ML VIAL 5 MG IVPUSH ×3 (05:05→17:02)
[2022-06-15 05:20] LABS: VBG Base Excess 4.2 mmol/L; VBG HCO3 27 mmol/L (22-26); VBG pCO2 33 mmHg; VBG pH 7.51 (7.32-7.43); VBG pO2 48 mmHg
[2022-06-15 05:35] LABS: Glucose, Whole Blood 116 mg/dL (60-115)
[2022-06-15 05:47] LABS: Hematocrit 26.5 % (37.0-47.0); Hemoglobin 8.6 g/dl (12.0-16.0); Mean Corpuscular HGB Conc 32.5 g/dl (31.0-35.0); Mean Corpuscular Volume 89.2 fL (80.0-98.0); Mean Platelet Volume 10.2 fL (9.4-12.3); Platelet Count 436 X10*3/uL (160-400); Red Blood Count 2.97 X10*6/uL (4.20-5.50); Red Cell Distribution Width 16.5 % (11.0-16.0); White Blood Count 15.4 X10*3/uL (4.8-10.8)
[2022-06-15 06:09] LABS: Albumin Level 3.4 g/dL (3.5-5.0); Anion Gap 15 (12-20); Blood Urea Nitrogen 20 mg/dL (9-16); Calcium 8.4 mg/dL (8.4-10.2); Carbon Dioxide 31 mmol/L (22-29); Chloride 98 mmol/L (96-108); Creatinine Clr Calc Pharmacy 97.8; Estimated Glomerular Filt Rate > 60; Glucose Random 121 mg/dL (60-115); Magnesium 1.9 mg/dL (1.6-2.6); Phosphorus 3.8 mg/dL (2.7-4.5); Potassium 2.6 mmol/L (3.3-5.1); Sodium 141 mmol/L (135-145)
[2022-06-15 07:20] LABS: Venous Blood Gas Refer to POC result
--- NOTE | 2022-06-15 07:43 | P.PNGS_ITS ---
Subjective Subjective Date of Service: 06/16/22 Interval history: was out of bed on recliner for a long time yesterday stoma functioning has been more alert off Heparin drip Physical Exam Vital Signs: Vital Signs: Last Vital Signs Temp 99.6 F 06/15/22 00:00 Pulse 102 H 06/15/22 07:00 Resp 17 06/15/22 07:00 BP 156/71 H 06/15/22 07:00 Pulse Ox 97 06/15/22 07:00 O2 Del Method 06/15/22 07:00 O2 Flow Rate 2 06/15/22 07:00 FiO2 35 06/14/22 12:00 Oxygen Flow Rate 35 06/13/22 21:00 BMI result Body Mass Index 37.8 Const: Other: appears comfortable, mild shortness of breath Resp: Other: a little short of breath Cardio: Rate: tachycardic GI: Other: soft, [address], scanty output, thin except for pelvic drain stoma with good output Objective Data Active Medications Acetazolamide (Acetazolamide Sodium 500 Mg Vial) 500 mg IVPUSH Q8H [facility] Last Admin: 06/14/22 23:37 Dose: 500 mg Documented By: LUIS Heparin Sodium (Porcine) (Heparin Sodium,Porcine 5,000 Unit/Ml Vial) 5,000 unit SUBCUT Q8H [facility] Last Admin: 06/15/22 01:08 Dose: 5,000 unit Documented By: LUIS Hydromorphone HCl (Hydromorphone Hcl 0.5 Mg/0.5 Ml Syringe) 0.5 mg IVPUSH Q1H P RN; Protocol PRN Reason: mild pain Last Admin: 06/15/22 05:16 Dose: 0.5 mg Documented By: LUIS Hydromorphone HCl (Hydromorphone Hcl 1 Mg/Ml Syringe) 1 mg IVPUSH Q1H PRN; Protocol PRN Reason: mod-severe pain Last Admin: 06/13/22 08:30 Dose: 1 mg Documented By: SANTOS Metronidazole (Flagyl) 500 mg in 100 mls @ 100 mls/hr IV Q8H [facility] Last Infusion: 06/15/22 02:23 Dose: 0 mls/hr Documented By: LUIS Meropenem 1 gm/ Sodium (Chloride) 100 mls @ 200 mls/hr IV Q8H [facility] Last Infusion: 06/15/22 02:54 Dose: 0 mls/hr Documented By: LUIS Furosemide 200 mg/ Sodium (Chloride) 100 mls @ 2.5 mls/hr IVCONT .Q24H [facility] Last Admin: 06/14/22 10:08 Dose: 5 mg/hr, 2.5 mls/hr Documented By: KIM-OSCAR Erythromycin Lactobionate 500 (mg/ Sodium Chloride) 100 mls @ 100 mls/hr IV Q8H [facility] Last Infusion: 06/15/22 02:23 Dose: 0 mls/hr Documented By: LUIS Insulin Human Lispro (Insulin Lispro 100 Unit/Ml 3 Ml Vial) 0 unit SUBCUT Q6H [facility]; Protocol Last Admin: 06/15/22 05:05 Dose: Not Given Documented By: LUIS Non-Admin Reason: No Insulin Coverage Metoclopramide HCl (Metoclopramide Hcl 10 Mg/2 Ml Vial) 5 mg IVPUSH Q6H [facility] Last Admin: 06/15/22 05:05 Dose: 5 mg Documented By: LUIS Metoprolol Tartrate (Metoprolol Tartrate 25 Mg Tablet) 75 mg NG-TUBE BID [facility]; Protocol Nystatin (Nystatin Powder 15 Gm Bottle) 1 appl TOPICAL BID [facility]; Protocol Last Admin: 06/14/22 20:57 Dose: 1 appl Documented By: JENNIFER Ondansetron HCl (Ondansetron Hcl 4 Mg/2 Ml Vial) 4 mg IVPUSH Q6H PRN PRN Reason: Nausea Last Admin: 06/13/22 13:16 Dose: 4 mg Documented By: SANTOS Pharmacy Consult (Consult Rx Perform Med Rec) 1 each MISCELLANE ONCE PRN PRN Reason: Consult order Potassium Phos/Sodium Phos (Sodium,Potassium Phosphates Powd.Pack) 1 packet PO QID [facility] Last Admin: 06/14/22 20:56 Dose: 1 packet Documented By: JENNIFER Sodium Chloride (0.9 % Sodium Chloride Flush 3 Ml Syringe) 3 ml IVFLUSH QSHIFT [facility] Last Admin: 06/14/22 23:36 Dose: 3 ml Documented By: LUIS Labs CBC & Chem 7: 06/16/22 05:35 06/16/22 05:35 Labs: Laboratory Results - last 24 hr 06/14/22 06/14/22 06/14/22 12:45 17:41 23:52 MCV MCH MCHC RDW Plt Count MPV Absolute Nucleated RBC Nucleated RBC % (auto) VBG pH VBG pCO2 VBG pO2 VBG HCO3 VBG O2 Saturation VBG Base Excess Anion Gap Estim Creat Clear Calc Estimated GFR POC Glucose 123 H 126 H 96 Random Glucose Calcium Phosphorus Magnesium Albumin 06/15/22 06/15/22 06/15/22 05:04 05:13 05:13 MCV 89.2 MCH 29.0 MCHC 32.5 RDW 16.5 H Plt Count 436 H MPV 10.2 Absolute Nucleated RBC 0.000 Nucleated RBC % (auto) 0.0 VBG pH VBG pCO2 VBG pO2 VBG HCO3 VBG O2 Saturation VBG Base Excess Anion Gap 15 Estim Creat Clear Calc 97.8 Estimated GFR > 60 POC Glucose 116 H Random Glucose 121 H Calcium 8.4 Phosphorus 3.8 Magnesium 1.9 Albumin 3.4 L 06/15/22 05:13 MCV MCH MCHC RDW Plt Count MPV Absolute Nucleated RBC Nucleated RBC % (auto) VBG pH 7.51 H VBG pCO2 33 VBG pO2 48 VBG HCO3 27 H VBG O2 Saturation 74.0 VBG Base Excess 4.2 Anion Gap Estim Creat Clear Calc Estimated GFR POC Glucose Random Glucose Calcium Phosphorus Magnesium Albumin Procedures Date of Service Date of Service: 06/15/22 Arterial Line Size (Gauge): 16 Progress Note: A&P Assessment and plan (1) Perforated viscus: Status: Acute Assessment and Plan: s/p Callie's procedure improving slowly continue feeds as tolerated drain on left upper quadrant removed OOB to recliner Time Spent With Patient Time: Total time spent is greater than 50% in coordination of care (as documented) at patient's floor/unit and/or counseling patient: Quality Stroke Does the patient have a stroke diagnosis?: No VTE Prior VTE?: No VTE Risk Level:: Medical - moderate - high VTE Device Contraindication: N/A - Device Ordered VTE Drug Contraindication: N/A - Med Ordered
[2022-06-15] MEDS: Metoprolol Tartrate 25 MG TABLET 75 MG NG-TUBE ×2 (08:17→21:08)
[2022-06-15] MEDS: Sodium,Potassium Phosphates POWD.PACK 1 PACKET PO ×4 (08:17→21:08)
[2022-06-15] MEDS: 0.9 % Sodium Chloride Flush 3 ML SYRINGE IVFLUSH ×2 (08:17→16:13)
[2022-06-15] MEDS: Potassium Chloride Packet 20 MEQ PACKET 40 MEQ PO (08:17)
[2022-06-15] MEDS: Nystatin Powder 15 GM BOTTLE 1 APPL TOPICAL ×2 (08:18→21:27)
[2022-06-15] MEDS: acetaZOLAMIDE sodium 500 MG VIAL IVPUSH ×2 (08:18→18:08)
[2022-06-15] MEDS: Furosemide 200 MG in 0.9 % Sodium Chloride 80 ML IVCONT (08:48)
[2022-06-15 12:19] LABS: Glucose, Whole Blood 136 mg/dL (60-115)
--- NOTE | 2022-06-15 18:19 | MHC.SL.SWA ---
Speech Pathologist Impression: Risk of Aspiration Due to: Medically Fragile Hx of Recent Extubation Weak Cough Dysphasia Diet Status: Recommend continue NPO, with sips of NT liquid supervised by nursing/ENAMEL BUFFER only. ENAMEL BUFFER will continue with PO trials to supplement NG tube feeding, re-assess for swallow, toleration PO, endurance. Liquid Consistency and Strategies for Safe Swallow: Liquid Intake Recommendation: NPO Liquid Intake Strategies: Liquids by Teaspoon Only Solid Food Consistency: Dietary Recommendations: NPO Additional Modifications to Solid Foods: Discussed recommendation with Nursing. Oral Medication Intake: NPO Please contact the pharmacy regarding appropriate crushable or liquid drug formulations that are available whenever modified delivery is recommended. Compensatory Strategies and Precautions to be Taken for Safe Swallow: Sitting Upright (90 deg) Liquids from Spoon Supervision While Eating and Drinking for Safe Swallow: PO with ENAMEL BUFFER Foods to Avoid: Swallowing Recommended Treatments: Compens. Strategy Educat. Recommendation for Speech: Inpatient Speech Therapy Comment: Pt seen this morning for re-assessment of swallow. Pt was initially intermittently lethargic, but stated that she wanted to try taking some food and liquid. Head of bed was elevated to 90 degrees, pt. commented that transition made her feel dizzy. Pt was initially given trace amounts of water by swab, with patient noted to bite down on swab to extract liquid, producing swallow on accumulated liquid. Pt given tsp amount of H2O, with patient requiring cuing to strip spoon with lip (presented open mouth), mild delay of oral phase w/ trace anterior leakage, mildly reduced elevation noted on swallow, throat clearing, wet vocal quality noted after swallow. Pt given tsp amount of nectar thick juice, with cuing needed to strip spoon, improved oral phase, timely swallow, reduced laryngeal elevation, no clinical signs of aspiration. After 5 presentations of NT liquid, patient reported she felt tired, declined further PO. Recommend continue NPO, with sips of NT liquid supervised by nursing/ENAMEL BUFFER only. ENAMEL BUFFER will continue with PO trials to supplement NG tube feeding, re-assess for swallow, toleration PO, endurance. Frequency/Duration: M-F Date Range for Service Req: Timeline to reassess: Payloader Machine Operator Clinican/Clinical Fellow: No Supervisory Statement: I have reviewed and agree with the student/clinical fellow's documentation: N/A Speech Language Pathologist: Evette Talbert M.A., CCC-ENAMEL BUFFER
[2022-06-15 18:28] LABS: Glucose, Whole Blood 122 mg/dL (60-115)
--- NOTE | 2022-06-15 20:21 | P.PNCC_ITS ---
Subjective Subjective Date of Service: 06/15/22 Interval History: Mrs. Hankins was transferred to the ICU on May 23 from the OR after emergency sigmoid resection and colostomy for perforated viscus. The patient is a 62 year old female with history of Crohn's disease who presented to the ED May 18 complaining of 2 weeks of abdominal pain.? She ?d been treated during that time with prednisone for a presumed Crohn?s flare.? On the morning of presentation, she developed sudden onset of sharp abdom pain.? Initial CT scan suggested severe constipation and a question of partial obstruction with worsening severe colitis of the sigmoid colon and proctitis, with increased wall thickening.? There was no evidence of free air.? She was treated with opiates and Zosyn.? The patient was admitted to Medicine and started on systemic steroids. ?Lactic acid was normal on May 19. The patient had no relief with tx.? She therefore underwent flex sig by Dr. Peralta on May 23 at which he found a large abscess cavity in the sigmoid with some associated ulceration, stool, and a second area of ulceration, which was biopsied.? Post procedure the patient had significant worsening of her abdominal exam; stat ct showed free air and fluid with a pelvic abscess. ?She was taken directly to the OR. At laparotomy, found a large perforation in the distal sigmoid, with two large stool balls immediately adjacent to the perforation.? There was extensive peritoneal fecal soilage, w marked indurated peritonitis especially in the pelvis, with the sigmoid covered in thick inflammatory rind.? She underwent extensive lysis of adhesions, sigmoid resection and colostomy, and abdominal washout.? The anesthetic course was marked by progressive septic shock.? The abdomen was closed and the patient was brought out intubated to ICU. On arrival to the ICU, the patient was in deep shock, and markedly hypovolemic.? Echo showed normal right and left heart, with hyperdynamic function and small IVC.? The patient was volume resuscitated, with excellent hemodynamic response.? A central line and arterial line were placed.? The patient was continued on Meropenam. The patient had a somewhat brook course since then.? Here renal indices lakshmi, but creat peaked at 1.7 on May 25.? She developed fever and multiple intraabdominal abscesses and had mult drains placed in IR:? In the left upper quadrant on 05/30, the pelvis on 05/30, the right lateral abdomen 06/02, and the left paracolic gutter on 06/02.? Flagyl was added to meropnenam. Subsequently she?s been improving slowly.? She was put on TPN.? The colostomy started putting out fecal material.? She was extubated on 06/07.? Since then has had some anxiety and mild ICU encephalopathy, along w moderate ICU myopathy.? We put a Kaofeed tube in on Jun 10 and started tube feeds with Vital, and started a Lasix drip.? She?s had some high residuals.? Put her on Reglan and erythromycin. On 06/13 she was found to have a cold left foot, with loss of palp pulses and decreased capill refill.? Over the course of 3 hours or so, the foot warmed up and capill refill returned to normal.? We started her on heparin.? Arterial duplex US showed no hemod signif stenosis.? Aortic CTA w runoff showed a short segment of limited contrast opacification of the distal left tibialis anterior just above the ankle, artifactual vs focal stenosis, more likely the former, w subsequent opacification/flow within the dorsalis pedis. ?Otherwise, patent runoff bilaterally, w no hemodynamically significant stenosis or arterial cutoff.? We stopped the heparin after [address] abdomen on 06/13 bec of increasing WBC showed no intra-abdominal free air, dilated bowel loops or bowel wall thickening.? There were multiple loculated and/or incompletely loculated peripherally enhancing fluid collections in the abdomen and pelvis suspicious for infected collections/abscesses, which Dr. Hagan felt were improved compared to the prior study. Today OOB in chair.? Breathing easy with maybe a hint of WOB.? Oxygenation continues to improve, with her sat 97% on 1 L oxygen by nasal cannula.? This morning?s CVBG showed 7.51/33/+4 (on Diamox).? HR 100, SR, on metoprolol 75 mg bid.? BP 140/61.? Afebrile.? No JVD in the chair.? Chest shows good excursion, clear to auscultation, normal expiratory phase.? The abdomen is mildly rotund, not distended.? Good bowel sounds.? Anasarca has resolved, still has 1-2+ LE edema.? Both feet equal, warm temperature, with normal capill refill.? UE strength is 2-3/5. Total i/o balance down to +5.6 L on the Lasix 5mg/hr. LABORATORY DATA: ?Below.? Notably, BUN/creat up very slightly on the Lasix drip, potassium 2.6. IMPRESSION: 1. Underlying obesity. 2. Perforated viscus w fecal peritonitis.? Obviously not acute.? Suspect she perforated the morning of admission when she had sudden onset pain.? The pathology report showed no evidence of Crohn?s. 3. Tachycardia.? Likely SIRS.? Improved with increased metoprolol to 75 mg bid. 4. Acute resp failure.? WOB has resolved.? Oxygenation markedly improved.? Continue the Lasix drip probably one more day. 5. SABINE.? 2? septic shock.? Resolved. 6. ID:? On meropenem and flagyl.? Afebrile.? CT showed nothing new.? Plan to stop metronidazole and merem when WBC [id number] or less. 7. GI.? Added standing Reglan and erythromycin for tube feeds.? Follow. 8. Cold left foot.? Resolved.? Follow. 9. Neuro/psych.? Precedex and fentanyl off, using Dilaudid for pain.? Still somewhat confused.? Improving slowly. 10. Moderate ICU myopathy.? Improving very slowly. 11. Anemia.? 2? phelebotomies and not making red cells. 12. Metabolic alkalosis.? Secondary to diuresis.? On Diamox. 13. Hyperglycemia.? SS insulin. 14. Hypokalemia.? Replete. 15. Hypophosphatemia.? Replete. 16. Hypomagnesemia.? Replete. 17. Nutrition. ?On Vital. 18. DVT proph.? On heparin and ICS. Critical Care Time (minutes): 0 Physical Exam Vital Signs: Vital Signs: Last Vital Signs Temp 98.7 F 06/15/22 12:00 Pulse 103 H 06/15/22 20:00 Resp 24 H 06/15/22 20:00 BP 142/70 H 06/15/22 20:00 Pulse Ox 96 06/15/22 20:00 O2 Del Method 06/15/22 20:00 O2 Flow Rate 2 06/15/22 20:00 FiO2 35 06/14/22 12:00 Oxygen Flow Rate 35 06/13/22 21:00 BMI result Body Mass Index 37.8 Objective Data Labs CBC & Chem 7: 06/15/22 05:13 06/15/22 05:13 Labs: Laboratory Results - last 24 hr 06/14/22 06/15/22 06/15/22 23:52 05:04 05:13 WBC 15.4 H RBC 2.97 L Hgb 8.6 L Hct 26.5 L MCV 89.2 MCH 29.0 MCHC 32.5 RDW 16.5 H Plt Count 436 H MPV 10.2 Absolute Nucleated RBC 0.000 Nucleated RBC % (auto) 0.0 VBG pH VBG pCO2 VBG pO2 VBG HCO3 VBG O2 Saturation VBG Base Excess Sodium Potassium Chloride Carbon Dioxide Anion Gap BUN Creatinine Estim Creat Clear Calc Estimated GFR POC Glucose 96 116 H Random Glucose Calcium Phosphorus Magnesium Albumin 06/15/22 06/15/22 06/15/22 05:13 05:13 12:16 WBC RBC Hgb Hct MCV MCH MCHC RDW Plt Count MPV Absolute Nucleated RBC Nucleated RBC % (auto) VBG pH 7.51 H VBG pCO2 33 VBG pO2 48 VBG HCO3 27 H VBG O2 Saturation 74.0 VBG Base Excess 4.2 Sodium 141 Potassium 2.6 L Chloride 98 Carbon Dioxide 31 H Anion Gap 15 BUN 20 H Creatinine 0.67 Estim Creat Clear Calc 97.8 Estimated GFR > 60 POC Glucose 136 H Random Glucose 121 H Calcium 8.4 Phosphorus 3.8 Magnesium 1.9 Albumin 3.4 L 06/15/22 18:25 WBC RBC Hgb Hct MCV MCH MCHC RDW Plt Count MPV Absolute Nucleated RBC Nucleated RBC % (auto) VBG pH VBG pCO2 VBG pO2 VBG HCO3 VBG O2 Saturation VBG Base Excess Sodium Potassium Chloride Carbon Dioxide Anion Gap BUN Creatinine Estim Creat Clear Calc Estimated GFR POC Glucose 122 H Random Glucose Calcium Phosphorus Magnesium Albumin Microbiology Microbiology Results: Microbiology 06/02/22 Unknown Abscess Intra-abdominal Fungal Identification - Preliminary Verónica dubliniensis 06/03/22 15:28 Blood - Subclavian Blood Culture - Final No growth after 5 days. 06/03/22 06:15 Blood - Venous Blood Culture - Final No growth after 5 days. 06/03/22 06:15 Blood - Venous Blood Culture - Final No growth after 5 days. 06/02/22 Unknown Peritoneal Fluid Gram Stain - Final 06/02/22 Unknown Peritoneal Fluid Routine Culture - Final Verónica albicans 06/02/22 Unknown Peritoneal Fluid Anaerobic Culture - Final 05/29/22 15:14 Blood - Venous Blood Culture - Final No growth after 5 days. 05/29/22 15:13 Blood - Venous Blood Culture - Final No growth after 5 days. 05/29/22 05:14 Blood - Venous Blood Culture - Final No growth after 5 days. 05/29/22 05:14 Blood - Venous Blood Culture - Final No growth after 5 days. 06/02/22 Unknown Abscess Intra-abdominal Gram Stain - Final 06/02/22 Unknown Abscess Intra-abdominal Routine Culture - Final 06/02/22 Unknown Abscess Intra-abdominal Anaerobic Culture - Final 06/02/22 Unknown Abscess Intra-abdominal Gram Stain - Final 06/02/22 Unknown Abscess Intra-abdominal Routine Culture - Final 05/28/22 Unknown Peritoneal Fluid Gram Stain - Final 05/28/22 Unknown Peritoneal Fluid Anaerobic Culture - Final 05/28/22 Unknown Peritoneal Fluid Body Fluid Culture - Final Verónica dubliniensis 05/29/22 15:05 Sputum - Suctioned Gram Stain - Final 05/29/22 15:05 Sputum - Suctioned Sputum Culture - Final Verónica dubliniensis 05/28/22 16:47 Sputum - Suctioned Gram Stain - Final 05/28/22 16:47 Sputum - Suctioned Sputum Culture - Final Verónica albicans 05/23/22 Unknown Peritoneal Fluid Gram Stain - Final 05/23/22 Unknown Peritoneal Fluid Routine Culture - Final Escherichia coli 05/23/22 Unknown Peritoneal Fluid Anaerobic Culture - Final Clostridium perfringens Bacteroides thetaiotaomicron 05/19/22 08:49 Blood - Venous Blood Culture - Final No growth after 5 days. 05/19/22 08:49 Blood - Venous Blood Culture - Final No growth after 5 days. Quality Stroke Does the patient have a stroke diagnosis?: No VTE Prior VTE?: No VTE Risk Level:: Medical - moderate - high VTE Device Contraindication: N/A - Device Ordered VTE Drug Contraindication: N/A - Med Ordered
[2022-06-15] MEDS: Potassium Chloride/H20 40 MEQ/100 ML PIGGYBACK 50 MEQ IV (21:09)
[2022-06-15] MEDS: Magnesium Sulfate/H2O 2 GM/50 ML PIGGYBACK IV (21:09)
[2022-06-15] MEDS: Potassium Chloride/H20 40 MEQ/100 ML PIGGYBACK 25 MEQ IV (23:16)
[2022-06-15 23:36] LABS: Glucose, Whole Blood 105 mg/dL (60-115)
[2022-06-16] VITALS (26 sets, daily range): BP systolic 115–150; BP diastolic 57–78; PULSE 81–114; RESP 22–35; TEMP 36.4–36.8; O2SAT 90–100; BMI 38.0
[2022-06-16] MEDS: Heparin Sodium,Porcine 5,000 UNIT/ML VIAL 5000 UNIT SUBCUT ×3 (00:36→17:29)
[2022-06-16] MEDS: Metoclopramide HCl 10 MG/2 ML VIAL 5 MG IVPUSH ×4 (00:36→18:17)
[2022-06-16] MEDS: acetaZOLAMIDE sodium 500 MG VIAL IVPUSH ×3 (00:37→17:29)
[2022-06-16] MEDS: 0.9 % Sodium Chloride Flush 3 ML SYRINGE IVFLUSH ×3 (00:37→17:14)
[2022-06-16] MEDS: HYDROmorphone HCl 0.5 MG/0.5 ML SYRINGE IVPUSH ×2 (01:30→18:04)
[2022-06-16] MEDS: metroNIDAZOLE/NS 500 MG/100 ML PIGGYBACK 100 MG IV ×3 (03:19→17:47)
[2022-06-16 05:35] LABS: Glucose, Whole Blood 130 mg/dL (60-115)
[2022-06-16 05:41] LABS: VBG Base Excess 2.7 mmol/L; VBG HCO3 24 mmol/L (22-26); VBG pCO2 29 mmHg; VBG pH 7.53 (7.32-7.43); VBG pO2 51 mmHg
[2022-06-16 05:44] LABS: Venous Blood Gas Refer to POC result
[2022-06-16 06:18] LABS: Hematocrit 27.3 % (37.0-47.0); Hemoglobin 8.9 g/dl (12.0-16.0); Mean Corpuscular HGB Conc 32.6 g/dl (31.0-35.0); Mean Corpuscular Hemoglobin 29.6 pg (27.0-33.0); Mean Corpuscular Volume 90.7 fL (80.0-98.0); Mean Platelet Volume 10.9 fL (9.4-12.3); Platelet Count 432 X10*3/uL (160-400); Red Blood Count 3.01 X10*6/uL (4.20-5.50); Red Cell Distribution Width 16.6 % (11.0-16.0); White Blood Count 16.5 X10*3/uL (4.8-10.8)
[2022-06-16 06:32] LABS: Albumin Level 3.4 g/dL (3.5-5.0); Anion Gap 17 (12-20); Blood Urea Nitrogen 22 mg/dL (9-16); Calcium 8.5 mg/dL (8.4-10.2); Carbon Dioxide 28 mmol/L (22-29); Chloride 100 mmol/L (96-108); Creatinine Clr Calc Pharmacy 97.9; Estimated Glomerular Filt Rate > 60; Glucose Random 126 mg/dL (60-115); Magnesium 2.1 mg/dL (1.6-2.6); Phosphorus 3.9 mg/dL (2.7-4.5); Sodium 142 mmol/L (135-145)
--- NOTE | 2022-06-16 06:39 | PC.NURSE ---
unmeasurebale output t from yemi drains this shft
--- NOTE | 2022-06-16 09:06 | PC.NURSE ---
0900-Dr. Vasquez at bedside and removed Rt lower NOHEMI drain. drain intact upon removal.
[2022-06-16] MEDS: Sodium,Potassium Phosphates POWD.PACK 1 PACKET PO ×4 (09:58→20:27)
[2022-06-16] MEDS: Metoprolol Tartrate 25 MG TABLET 75 MG NG-TUBE ×2 (09:58→20:27)
[2022-06-16] MEDS: Nystatin Powder 15 GM BOTTLE 1 APPL TOPICAL ×2 (09:59→20:27)
--- NOTE | 2022-06-16 10:01 | PM.PNGS ---
Subjective Subjective Date of Service: 06/19/22 Interval history: no new events was OOB to recliner yesterday on tube feeds stoma functioning Physical Exam Vital Signs: Vital Signs: Last Vital Signs Temp 97.6 F 06/16/22 08:00 Pulse 109 H 06/16/22 09:47 Resp 22 H 06/16/22 09:00 BP 138/69 06/16/22 09:47 Pulse Ox 93 06/16/22 09:47 O2 Del Method 06/16/22 09:00 O2 Flow Rate 1 06/16/22 09:00 FiO2 35 06/14/22 12:00 Oxygen Flow Rate 35 06/13/22 21:00 BMI result Body Mass Index 38.0 Const: Other: appears comfortable, communicative Resp: Other: a little short of breath Cardio: Rate: tachycardic GI: Other: stoma functioning, [address] - NOHEMI drain on right seems to be leaking - unable to maintain bulb suction, no output Palpation (GI): Soft to palpation and not firm Objective Data Active Medications Acetazolamide (Acetazolamide Sodium 500 Mg Vial) 500 mg IVPUSH Q8H [facility] Last Admin: 06/16/22 09:57 Dose: 500 mg Documented By: IGNACIA Heparin Sodium (Porcine) (Heparin Sodium,Porcine 5,000 Unit/Ml Vial) 5,000 unit SUBCUT Q8H [facility] Last Admin: 06/16/22 09:57 Dose: 5,000 unit Documented By: IGNACIA Hydromorphone HCl (Hydromorphone Hcl 0.5 Mg/0.5 Ml Syringe) 0.5 mg IVPUSH Q1H PRN; Protocol PRN Reason: mild pain Last Admin: 06/16/22 01:30 Dose: 0.5 mg Documented By: MIS Hydromorphone HCl (Hydromorphone Hcl 1 Mg/Ml Syringe) 1 mg IVPUSH Q1H PRN; Protocol PRN Reason: mod-severe pain Last Admin: 06/13/22 08:30 Dose: 1 mg Documented By: SANTOS Metronidazole (Flagyl) 500 mg in 100 mls @ 100 mls/hr IV Q8H [facility] Last Infusion: 06/16/22 04:54 Dose: 0 mls/hr Documented By: MIS Meropenem 1 gm/ Sodium (Chloride) 100 mls @ 200 mls/hr IV Q8H [facility] Last Infusion: 06/16/22 02:48 Dose: 0 mls/hr Documented By: MIS Furosemide 200 mg/ Sodium (Chloride) 100 mls @ 2.5 mls/hr IVCONT .Q24H [facility] Last Admin: 06/15/22 08:48 Dose: 5 mg/hr, 2.5 mls/hr Documented By: IGNACIA Erythromycin Lactobionate 500 (mg/ Sodium Chloride) 100 mls @ 100 mls/hr IV Q8H [facility] Last Admin: 06/16/22 09:36 Dose: 100 mls/hr Documented By: IGNACIA Insulin Human Lispro (Insulin Lispro 100 Unit/Ml 3 Ml Vial) 0 unit SUBCUT Q6H [facility]; Protocol Last Admin: 06/16/22 05:34 Dose: Not Given Documented By: MIS Non-Admin Reason: No Insulin Coverage Metoclopramide HCl (Metoclopramide Hcl 10 Mg/2 Ml Vial) 5 mg IVPUSH Q6H [facility] Last Admin: 06/16/22 05:29 Dose: 5 mg Documented By: MIS Metoprolol Tartrate (Metoprolol Tartrate 25 Mg Tablet) 75 mg NG-TUBE BID [facility]; Protocol Last Admin: 06/16/22 09:58 Dose: 75 mg Documented By: IGNACIA Nystatin (Nystatin Powder 15 Gm Bottle) 1 appl TOPICAL BID [facility]; Protocol Last Admin: 06/16/22 09:59 Dose: 1 appl Documented By: IGNACIA Ondansetron HCl (Ondansetron Hcl 4 Mg/2 Ml Vial) 4 mg IVPUSH Q6H PRN PRN Reason: Nausea Last Admin: 06/13/22 13:16 Dose: 4 mg Documented By: SANTOS Pharmacy Consult (Consult Rx Perform Med Rec) 1 each MISCELLANE ONCE PRN PRN Reason: Consult order Potassium Phos/Sodium Phos (Sodium,Potassium Phosphates Powd.Pack) 1 packet PO QID [facility] Last Admin: 06/16/22 09:58 Dose: 1 packet Documented By: IGNACIA Sodium Chloride (0.9 % Sodium Chloride Flush 3 Ml Syringe) 3 ml IVFLUSH QSHIFT [facility] Last Admin: 06/16/22 09:36 Dose: 3 ml Documented By: IGNACIA Labs CBC & Chem 7: 06/19/22 06:11 06/19/22 06:11 Labs: Laboratory Results - last 24 hr 06/15/22 06/15/22 06/15/22 12:16 18:25 23:31 MCV MCH MCHC RDW Plt Count MPV Absolute Nucleated RBC Nucleated RBC % (auto) VBG pH VBG pCO2 VBG pO2 VBG HCO3 VBG O2 Saturation VBG Base Excess Anion Gap Estim Creat Clear Calc Estimated GFR POC Glucose 136 H 122 H 105 Random Glucose Calcium Phosphorus Magnesium Albumin 06/16/22 06/16/22 06/16/22 05:21 05:35 05:35 MCV 90.7 MCH 29.6 MCHC 32.6 RDW 16.6 H Plt Count 432 H MPV 10.9 Absolute Nucleated RBC 0.000 Nucleated RBC % (auto) 0.0 VBG pH VBG pCO2 VBG pO2 VBG HCO3 VBG O2 Saturation VBG Base Excess Anion Gap 17 Estim Creat Clear Calc 97.9 Estimated GFR > 60 POC Glucose 130 H Random Glucose 126 H Calcium 8.5 Phosphorus 3.9 Magnesium 2.1 Albumin 3.4 L 06/16/22 05:36 MCV MCH MCHC RDW Plt Count MPV Absolute Nucleated RBC Nucleated RBC % (auto) VBG pH 7.53 H VBG pCO2 29 VBG pO2 51 VBG HCO3 24 VBG O2 Saturation 79.0 VBG Base Excess 2.7 Anion Gap Estim Creat Clear Calc Estimated GFR POC Glucose Random Glucose Calcium Phosphorus Magnesium Albumin Procedures Date of Service Date of Service: 06/19/22 Arterial Line Size (Gauge): 16 Progress Note: A&P Assessment and plan (1) Perforated viscus: Status: Acute Assessment and Plan: S/P franci's drain on right side removed stoma functioning OOB to recliner continue feeds WBC fluctuating - plan to repeat scan next week much improved overall family updated Time Spent With Patient Time: Total time spent is greater than 50% in coordination of care (as documented) at patient's floor/unit and/or counseling patient: Quality Stroke Does the patient have a stroke diagnosis?: No VTE Prior VTE?: No VTE Risk Level:: Medical - moderate - high VTE Device Contraindication: N/A - Device Ordered VTE Drug Contraindication: N/A - Med Ordered
[2022-06-16] MEDS: Furosemide 200 MG in 0.9 % Sodium Chloride 80 ML IVCONT (10:32)
--- NOTE | 2022-06-16 12:13 | MHC.CLN ---
F/U DISCUSSED AT ROUND WITH TEAM TF RUNNING AT TRICKLE 10ML/HR PLAN PER MD INCREASING VITAL 1.5 AT MAX GOAL RATE 20ML/HR TODAY SLITTER HELPER RECOMMENDING DIET ADVANCE TO PUREED WITH NT LIQ MONITOR INTAKE PT'S GOAL FOR TF IS VITAL 1.5 AT 40ML/HR TO PROVIDE 1440KCALS (24KCALS/KG), 65G PROTEIN, 733ML FREE WATER FROM FORMULA MONITOR TOLERANCE, RESIDUALS AND LYTES
[2022-06-16 12:15] LABS: Glucose, Whole Blood 172 mg/dL (60-115)
--- NOTE | 2022-06-16 12:19 | PM.GIPN ---
Subjective Subjective Date of Service: 06/16/22 Interval History: resting Critical Care Time (minutes): 0 Physical Exam Vital Signs: Vital Signs: Last Vital Signs Temp 97.6 F 06/16/22 08:00 Pulse 95 06/16/22 11:00 Resp 29 H 06/16/22 11:00 BP 136/68 06/16/22 11:00 Pulse Ox 95 06/16/22 11:00 O2 Del Method 06/16/22 11:00 O2 Flow Rate 1 06/16/22 11:00 FiO2 35 06/14/22 12:00 Oxygen Flow Rate 35 06/13/22 21:00 BMI result Body Mass Index 38.0 GI: Other: abdomen is soft Objective Data Labs CBC & Chem 7: 06/16/22 05:35 06/16/22 05:35 Procedures Date of Service Date of Service: 06/16/22 Arterial Line Size (Gauge): 16 Progress Note: A&P Assessment and plan (1) Perforated viscus: Status: Acute Plan slow improvement can add bentyl 10 mg ac for cramping as diet is advanced. Time Spent With Patient Time: Total time spent is greater than 50% in coordination of care (as documented) at patient's floor/unit and/or counseling patient: Quality Stroke Does the patient have a stroke diagnosis?: No VTE Prior VTE?: No VTE Risk Level:: Medical - moderate - high VTE Device Contraindication: N/A - Device Ordered VTE Drug Contraindication: N/A - Med Ordered
[2022-06-16] MEDS: Insulin Lispro 100 UNIT/ML 3 ML VIAL SUBCUT ×2 (12:39→18:04)
--- NOTE | 2022-06-16 14:14 | PM.CCPN ---
Subjective Subjective Date of Service: 06/16/22 Physical Exam Vital Signs: Vital Signs: Last Vital Signs Temp 97.6 F 06/16/22 12:00 Pulse 98 06/16/22 13:00 Resp 35 H 06/16/22 13:00 BP 118/65 06/16/22 13:00 Pulse Ox 97 06/16/22 13:00 O2 Del Method 06/16/22 13:00 O2 Flow Rate 1 06/16/22 13:00 FiO2 35 06/14/22 12:00 Oxygen Flow Rate 35 06/13/22 21:00 BMI result Body Mass Index 38.0 Objective Data Labs CBC & Chem 7: 06/16/22 05:35 06/16/22 05:35 Labs: Laboratory Results - last 24 hr 06/15/22 06/15/22 06/16/22 18:25 23:31 05:21 WBC RBC Hgb Hct MCV MCH MCHC RDW Plt Count MPV Absolute Nucleated RBC Nucleated RBC % (auto) VBG pH VBG pCO2 VBG pO2 VBG HCO3 VBG O2 Saturation VBG Base Excess Sodium Potassium Chloride Carbon Dioxide Anion Gap BUN Creatinine Estim Creat Clear Calc Estimated GFR POC Glucose 122 H 105 130 H Random Glucose Calcium Phosphorus Magnesium Albumin 06/16/22 06/16/22 06/16/22 05:35 05:35 05:36 WBC 16.5 H RBC 3.01 L Hgb 8.9 L Hct 27.3 L MCV 90.7 MCH 29.6 MCHC 32.6 RDW 16.6 H Plt Count 432 H MPV 10.9 Absolute Nucleated RBC 0.000 Nucleated RBC % (auto) 0.0 VBG pH 7.53 H VBG pCO2 29 VBG pO2 51 VBG HCO3 24 VBG O2 Saturation 79.0 VBG Base Excess 2.7 Sodium 142 Potassium 3.0 L Chloride 100 Carbon Dioxide 28 Anion Gap 17 BUN 22 H Creatinine 0.67 Estim Creat Clear Calc 97.9 Estimated GFR > 60 POC Glucose Random Glucose 126 H Calcium 8.5 Phosphorus 3.9 Magnesium 2.1 Albumin 3.4 L 06/16/22 12:10 WBC RBC Hgb Hct MCV MCH MCHC RDW Plt Count MPV Absolute Nucleated RBC Nucleated RBC % (auto) VBG pH VBG pCO2 VBG pO2 VBG HCO3 VBG O2 Saturation VBG Base Excess Sodium Potassium Chloride Carbon Dioxide Anion Gap BUN Creatinine Estim Creat Clear Calc Estimated GFR POC Glucose 172 H Random Glucose Calcium Phosphorus Magnesium Albumin Microbiology Microbiology Results: Microbiology 06/02/22 Unknown Abscess Intra-abdominal Fungal Identification - Preliminary Verónica dubliniensis 06/03/22 15:28 Blood - Subclavian Blood Culture - Final No growth after 5 days. 06/03/22 06:15 Blood - Venous Blood Culture - Final No growth after 5 days. 06/03/22 06:15 Blood - Venous Blood Culture - Final No growth after 5 days. 06/02/22 Unknown Peritoneal Fluid Gram Stain - Final 06/02/22 Unknown Peritoneal Fluid Routine Culture - Final Verónica albicans 06/02/22 Unknown Peritoneal Fluid Anaerobic Culture - Final 05/29/22 15:14 Blood - Venous Blood Culture - Final No growth after 5 days. 05/29/22 15:13 Blood - Venous Blood Culture - Final No growth after 5 days. 05/29/22 05:14 Blood - Venous Blood Culture - Final No growth after 5 days. 05/29/22 05:14 Blood - Venous Blood Culture - Final No growth after 5 days. 06/02/22 Unknown Abscess Intra-abdominal Gram Stain - Final 06/02/22 Unknown Abscess Intra-abdominal Routine Culture - Final 06/02/22 Unknown Abscess Intra-abdominal Anaerobic Culture - Final 06/02/22 Unknown Abscess Intra-abdominal Gram Stain - Final 06/02/22 Unknown Abscess Intra-abdominal Routine Culture - Final 05/28/22 Unknown Peritoneal Fluid Gram Stain - Final 05/28/22 Unknown Peritoneal Fluid Anaerobic Culture - Final 05/28/22 Unknown Peritoneal Fluid Body Fluid Culture - Final Verónica dubliniensis 05/29/22 15:05 Sputum - Suctioned Gram Stain - Final 05/29/22 15:05 Sputum - Suctioned Sputum Culture - Final Verónica dubliniensis 05/28/22 16:47 Sputum - Suctioned Gram Stain - Final 05/28/22 16:47 Sputum - Suctioned Sputum Culture - Final Verónica albicans 05/23/22 Unknown Peritoneal Fluid Gram Stain - Final 05/23/22 Unknown Peritoneal Fluid Routine Culture - Final Escherichia coli 05/23/22 Unknown Peritoneal Fluid Anaerobic Culture - Final Clostridium perfringens Bacteroides thetaiotaomicron 05/19/22 08:49 Blood - Venous Blood Culture - Final No growth after 5 days. 05/19/22 08:49 Blood - Venous Blood Culture - Final No growth after 5 days. Quality Stroke Does the patient have a stroke diagnosis?: No VTE Prior VTE?: No VTE Risk Level:: Medical - moderate - high VTE Device Contraindication: N/A - Device Ordered VTE Drug Contraindication: N/A - Med Ordered
--- NOTE | 2022-06-16 14:30 | MHC.SL.SWA ---
Speech Pathologist Impression: Oropharyngeal phase dysphagia Risk of Aspiration Due to: Medically Fragile Hx of Recent Extubation Weak Cough Dysphasia Diet Status: Upgrade Liquid Consistency and Strategies for Safe Swallow: Liquid Intake Recommendation: [place] Thick Liquid Intake Strategies: Small Sips No Straws Solid Food Consistency: Dietary Recommendations: Pureed (NDD1) Additional Modifications to Solid Foods: Recommend upgrade to PUREED (NDD1) diet with NECTAR THICK liquids, pills CRUSHED in PUREE. Pt requires total 1:1 feeding- Monitor for any overt s/s of aspiration or changes in 02 with intake of PO. Ensure strict aspiration precautions. Recommend MD and RD to re-assess if pt is able to maintain adequate nutrition with PO intake or if NGT is still indicated. Sent update to MD, RN, RD via [employer] Message. Oral Medication Intake: Crushed with Puree Please contact the pharmacy regarding appropriate crushable or liquid drug formulations that are available whenever modified delivery is recommended. Compensatory Strategies and Precautions to be Taken for Safe Swallow: Sitting Upright (90 deg) No Straw Liquids from Cup Liquids from Spoon Small Bites and Sips Rate of Ingestion Change Oral Check Supervision While Eating and Drinking for Safe Swallow: Total Assistance (1:1) Swallowing Recommended Treatments: Compens. Strategy Educat. Recommendation for Speech: Inpatient Speech Therapy Comment: Pt w/ oropharyngeal dysphagia s/p extubation. Frequency/Duration: M-F Date Range for Service Req: Timeline to reassess: Instructor Knitting Clinican/Clinical Fellow: No Supervisory Statement: I have reviewed and agree with the student/clinical fellow's documentation: N/A Speech Language Pathologist: Majo Grissom M.A., CCC-RETIREMENT MANAGER
[2022-06-16 17:58] LABS: Glucose, Whole Blood 156 mg/dL (60-115)
--- NOTE | 2022-06-16 21:14 | PM.CCPN ---
Subjective Subjective Date of Service: 06/16/22 Interval History: Mrs. Hankins was transferred to the ICU on May 23 from the OR after emergency sigmoid resection and colostomy for perforated viscus. The patient is a 62 year old female with history of Crohn's disease who presented to the ED May 18 complaining of 2 weeks of abdominal pain.? She?d been treated during that time with prednisone for a presumed Crohn?s flare.? On the morning of presentation, she developed sudden onset of sharp abdom pain.? Initial CT scan suggested severe constipation and a question of partial obstruction with worsening severe colitis of the sigmoid colon and proctitis, with increased wall thickening.? There was no evidence of free air.? She was treated with opiates and Zosyn.? The patient was admitted to Medicine and started on systemic steroids. ?Lactic acid was normal on May 19. The patient had no relief with tx.? She therefore underwent flex sig by Dr. Peralta on May 23 at which he found a large abscess cavity in the sigmoid with some associated ulceration, stool, and a second area of ulceration, which was biopsied.? Post procedure the patient had significant worsening of her abdominal exam; stat ct showed free air and fluid with a pelvic abscess. ?She was taken directly to the OR. At laparotomy, found a large perforation in the distal sigmoid, with two large stool balls immediately adjacent to the perforation.? There was extensive peritoneal fecal soilage, w marked indurated peritonitis especially in the pelvis, with the sigmoid covered in thick inflammatory rind.? She underwent extensive lysis of adhesions, sigmoid resection and colostomy, and abdominal washout.? The anesthetic course was marked by progressive septic shock.? The abdomen was closed and the patient was brought out intubated to ICU. On arrival to the ICU, the patient was in deep shock, and markedly hypovolemic.? Echo showed normal right and left heart, with hyperdynamic function and small IVC.? The patient was volume resuscitated, with excellent hemodynamic response.? A central line and arterial line were placed.? The patient was continued on Meropenam. The patient had a somewhat brook course since then.? Here renal indices lakshmi, but creat peaked at 1.7 on May 25.? She developed fever and multiple intraabdominal abscesses and had mult drains placed in IR:? In the left upper quadrant on 05/30, the pelvis on 05/30, the right lateral abdomen 06/02, and the left paracolic gutter on 06/02.? Flagyl was added to meropnenam. Subsequently she?s been improving slowly.? She was put on TPN. ?The colostomy started putting out fecal material.? She was extubated on 06/07.? Since then has had some anxiety and mild ICU encephalopathy, along w moderate ICU myopathy.? We put a Kaofeed tube in on Jun 10 and started tube feeds with Vital, and started a Lasix drip.? She?s had some high residuals.? Put her on Reglan and erythromycin. On 06/13 she was found to have a cold left foot, with loss of palp pulses and decreased capill refill.? Over the course of 3 hours or so, the foot warmed up and capill refill returned to normal.? We started her on heparin.? Arterial duplex US showed no hemod signif stenosis.? Aortic CTA w runoff showed a short segment of limited contrast opacification of the distal left tibialis anterior just above the ankle, artifactual vs focal stenosis, more likely the former, w subsequent opacification/flow within the dorsalis pedis. ?Otherwise, patent runoff bilaterally, w no hemodynamically significant stenosis or arterial cutoff.? We stopped the heparin after [address] abdomen on 06/13 bec of increasing WBC showed no intra-abdominal free air, dilated bowel loops or bowel wall thickening.? There were multiple loculated and/or incompletely loculated peripherally enhancing fluid collections in the abdomen and pelvis suspicious for infected collections/abscesses, which Dr. Hagan felt were improved compared to the prior study. Today OOB in chair.? Breathing easy with minimal WOB.? Oxygenation continues to improve, with her sat high 90?s on 1 L oxygen by nasal cannula, 99-100% on room air.? This morning?s CVBG showed 7.53/29/+2 (on Diamox).? HR 100, SR, on metoprolol 75 mg bid.? BP 122/66.? Afebrile.? No JVD in the chair.? Chest shows good excursion, clear to auscultation, normal expiratory phase.? The abdomen is mildly rotund, not distended.? Good bowel sounds.? Anasarca has resolved, and much less pretibial edema, down to 1+.? Both feet equal, warm temperature, with normal capill refill.? UE strength is 3-/5. Total i/o balance down to +4.2 L on the Lasix 5mg/hr. LABORATORY DATA: ?Below.? Notably, BUN/creat up very slightly on the Lasix drip, potassium 3.0. IMPRESSION: 1. Underlying obesity. 2. Perforated viscus w fecal peritonitis.? Obviously not acute.? Suspect she perforated the morning of admission when she had sudden onset pain.? The pathology report showed no evidence of Crohn?s. 3. Tachycardia.? Likely SIRS.? Improved with increased metoprolol to 75 mg bid. 4. Acute resp failure.? WOB has resolved.? Oxygenation markedly improved.? Continue the Lasix drip probably one more day. 5. SABINE.? 2? septic shock.? Resolved. 6. ID:? On meropenem and flagyl.? Afebrile.? CT showed nothing new.? Plan to stop metronidazole and merem when WBC 92011 or less. 7. GI.? Added standing Reglan and erythromycin for tube feeds.? Follow. 8. Cold left foot.? Resolved.? Follow. 9. Neuro/psych.? Precedex and fentanyl off, using Dilaudid for pain.? Still somewhat confused.? Improving slowly. 10. Moderate ICU myopathy.? Improving very slowly. 11. Anemia.? 2? phelebotomies and not making red cells. 12. Metabolic alkalosis.? Secondary to diuresis.? Hold Diamox. 13. Hyperglycemia.? SS insulin. 14. Hypokalemia.? Replete. 15. Nutrition. ?On Vital. 16. DVT proph.? On heparin and ICS. Critical Care Time (minutes): 0 Physical Exam Vital Signs: Vital Signs: Last Vital Signs Temp 98.0 F 06/16/22 20:00 Pulse 105 H 06/16/22 20:00 Resp 23 H 06/16/22 20:00 BP 121/63 06/16/22 20:00 Pulse Ox 99 06/16/22 20:46 O2 Del Method 06/16/22 20:46 O2 Flow Rate 1 06/16/22 20:00 FiO2 35 06/14/22 12:00 Oxygen Flow Rate 35 06/13/22 21:00 BMI result Body Mass Index 38.0 Objective Data Labs CBC & Chem 7: 10/07/22 05:35 06/16/22 05:35 Labs: Laboratory Results - last 24 hr 06/15/22 06/16/22 06/16/22 23:31 05:21 05:35 WBC 16.5 H RBC 3.01 L Hgb 8.9 L Hct 27.3 L MCV 90.7 MCH 29.6 MCHC 32.6 RDW 16.6 H Plt Count 432 H MPV 10.9 Absolute Nucleated RBC 0.000 Nucleated RBC % (auto) 0.0 VBG pH VBG pCO2 VBG pO2 VBG HCO3 VBG O2 Saturation VBG Base Excess Sodium Potassium Chloride Carbon Dioxide Anion Gap BUN Creatinine Estim Creat Clear Calc Estimated GFR POC Glucose 105 130 H Random Glucose Calcium Phosphorus Magnesium Albumin 06/16/22 06/16/22 06/16/22 05:35 05:36 12:10 WBC RBC Hgb Hct MCV MCH MCHC RDW Plt Count MPV Absolute Nucleated RBC Nucleated RBC % (auto) VBG pH 7.53 H VBG pCO2 29 VBG pO2 51 VBG HCO3 24 VBG O2 Saturation 79.0 VBG Base Excess 2.7 Sodium 142 Potassium 3.0 L Chloride 100 Carbon Dioxide 28 Anion Gap 17 BUN 22 H Creatinine 0.67 Estim Creat Clear Calc 97.9 Estimated GFR > 60 POC Glucose 172 H Random Glucose 126 H Calcium 8.5 Phosphorus 3.9 Magnesium 2.1 Albumin 3.4 L 06/16/22 17:51 WBC RBC Hgb Hct MCV MCH MCHC RDW Plt Count MPV Absolute Nucleated RBC Nucleated RBC % (auto) VBG pH VBG pCO2 VBG pO2 VBG HCO3 VBG O2 Saturation VBG Base Excess Sodium Potassium Chloride Carbon Dioxide Anion Gap BUN Creatinine Estim Creat Clear Calc Estimated GFR POC Glucose 156 H Random Glucose Calcium Phosphorus Magnesium Albumin Microbiology Microbiology Results: Microbiology 06/02/22 Unknown Abscess Intra-abdominal Fungal Identification - Preliminary Verónica dubliniensis 06/03/22 15:28 Blood - Subclavian Blood Culture - Final No growth after 5 days. 06/03/22 06:15 Blood - Venous Blood Culture - Final No growth after 5 days. 06/03/22 06:15 Blood - Venous Blood Culture - Final No growth after 5 days. 06/02/22 Unknown Peritoneal Fluid Gram Stain - Final 06/02/22 Unknown Peritoneal Fluid Routine Culture - Final Verónica albicans 06/02/22 Unknown Peritoneal Fluid Anaerobic Culture - Final 05/29/22 15:14 Blood - Venous Blood Culture - Final No growth after 5 days. 05/29/22 15:13 Blood - Venous Blood Culture - Final No growth after 5 days. 05/29/22 05:14 Blood - Venous Blood Culture - Final No growth after 5 days. 05/29/22 05:14 Blood - Venous Blood Culture - Final No growth after 5 days. 06/02/22 Unknown Abscess Intra-abdominal Gram Stain - Final 06/02/22 Unknown Abscess Intra-abdominal Routine Culture - Final 06/02/22 Unknown Abscess Intra-abdominal Anaerobic Culture - Final 06/02/22 Unknown Abscess Intra-abdominal Gram Stain - Final 06/02/22 Unknown Abscess Intra-abdominal Routine Culture - Final 05/28/22 Unknown Peritoneal Fluid Gram Stain - Final 05/28/22 Unknown Peritoneal Fluid Anaerobic Culture - Final 05/28/22 Unknown Peritoneal Fluid Body Fluid Culture - Final Verónica dubliniensis 05/29/22 15:05 Sputum - Suctioned Gram Stain - Final 05/29/22 15:05 Sputum - Suctioned Sputum Culture - Final Verónica dubliniensis 05/28/22 16:47 Sputum - Suctioned Gram Stain - Final 05/28/22 16:47 Sputum - Suctioned Sputum Culture - Final Verónica albicans 05/23/22 Unknown Peritoneal Fluid Gram Stain - Final 05/23/22 Unknown Peritoneal Fluid Routine Culture - Final Escherichia coli 05/23/22 Unknown Peritoneal Fluid Anaerobic Culture - Final Clostridium perfringens Bacteroides thetaiotaomicron 05/19/22 08:49 Blood - Venous Blood Culture - Final No growth after 5 days. 05/19/22 08:49 Blood - Venous Blood Culture - Final No growth after 5 days. Quality Stroke Does the patient have a stroke diagnosis?: No VTE Prior VTE?: No VTE Risk Level:: Medical - moderate - high VTE Device Contraindication: N/A - Device Ordered VTE Drug Contraindication: N/A - Med Ordered
[2022-06-16] MEDS: Potassium Chloride/H20 40 MEQ/100 ML PIGGYBACK 50 MEQ IV (22:53)
[2022-06-16 23:55] LABS: Glucose, Whole Blood 116 mg/dL (60-115)
[2022-06-17] VITALS (25 sets, daily range): BP systolic 126–156; BP diastolic 54–85; PULSE 80–127; RESP 21–35; TEMP 36.6–36.8; O2SAT 90–97; BMI 35.6
[2022-06-17] MEDS: Metoclopramide HCl 10 MG/2 ML VIAL 5 MG IVPUSH ×5 (00:10→23:45)
[2022-06-17] MEDS: Heparin Sodium,Porcine 5,000 UNIT/ML VIAL 5000 UNIT SUBCUT ×4 (00:10→23:45)
[2022-06-17] MEDS: 0.9 % Sodium Chloride Flush 3 ML SYRINGE IVFLUSH ×4 (00:10→23:45)
[2022-06-17] MEDS: HYDROmorphone HCl 0.5 MG/0.5 ML SYRINGE IVPUSH ×2 (00:18→03:10)
[2022-06-17] MEDS: metroNIDAZOLE/NS 500 MG/100 ML PIGGYBACK 100 MG IV ×2 (01:26→09:56)
[2022-06-17 05:32] LABS: VBG Base Excess 2.9 mmol/L; VBG HCO3 24 mmol/L (22-26); VBG pCO2 27 mmHg; VBG pH 7.55 (7.32-7.43); VBG pO2 43 mmHg
[2022-06-17 05:42] LABS: Hematocrit 27.2 % (37.0-47.0); Hemoglobin 8.8 g/dl (12.0-16.0); Mean Corpuscular HGB Conc 32.4 g/dl (31.0-35.0); Mean Corpuscular Hemoglobin 28.9 pg (27.0-33.0); Mean Corpuscular Volume 89.5 fL (80.0-98.0); Mean Platelet Volume 10.2 fL (9.4-12.3); NRBC Pct Auto 0.1 /100WBC (0.0-0.2); Platelet Count 364 X10*3/uL (160-400); Red Blood Count 3.04 X10*6/uL (4.20-5.50); Red Cell Distribution Width 16.8 % (11.0-16.0)
[2022-06-17 05:43] LABS: Venous Blood Gas Refer to POC result
[2022-06-17 06:00] LABS: Anion Gap 17 (12-20); Blood Urea Nitrogen 25 mg/dL (9-16); Calcium 8.5 mg/dL (8.4-10.2); Carbon Dioxide 26 mmol/L (22-29); Chloride 103 mmol/L (96-108); Creatinine Clr Calc Pharmacy 97.9; Estimated Glomerular Filt Rate > 60; Glucose Random 146 mg/dL (60-115); Magnesium 1.9 mg/dL (1.6-2.6); Sodium 143 mmol/L (135-145)
[2022-06-17] MEDS: Potassium Chloride Packet 20 MEQ PACKET 40 MEQ PO (07:41)
--- NOTE | 2022-06-17 07:48 | MHC.CM.PN ---
Pt making daily progress - continuing care in ICU. Surgical following for NOHEMI drain management. STR referrals made w/several centers following pt for eventual transfer. CM to follow
--- NOTE | 2022-06-17 09:40 | PM.CCPN ---
Subjective Subjective Date of Service: 06/17/22 Interval History: Mrs. Hankins was transferred to the ICU on May 23 from the OR after emergency sigmoid resection and colostomy for perforated viscus. The patient is a 62 year old female with history of Crohn's disease who presented to the ED May 18 complaining of 2 weeks of abdominal pain.? She?d been treated during that time with prednisone for a presumed Crohn?s flare.? On the morning of presentation, she developed sudden onset of sharp abdom pain.? Initial CT scan suggested severe constipation and a question of partial obstruction with worsening severe colitis of the sigmoid colon and proctitis, with increased wall thickening.? There was no evidence of free air.? She was treated with opiates and Zosyn.? The patient was admitted to Medicine and started on systemic steroids. ?Lactic acid was normal on May 19. The patient had no relief with tx.? She therefore underwent flex sig by Dr. Peralta on May 23 at which he found a large abscess cavity in the sigmoid with some associated ulceration, stool, and a second area of ulceration, which was biopsied.? Post procedure the patient had significant worsening of her abdominal exam; stat ct showed free air and fluid with a pelvic abscess. ?She was taken directly to the OR. At laparotomy, found a large perforation in the distal sigmoid, with two large stool balls immediately adjacent to the perforation.? There was extensive peritoneal fecal soilage, w marked indurated peritonitis especially in the pelvis, with the sigmoid covered in thick inflammatory rind.? She underwent extensive lysis of adhesions, sigmoid resection and colostomy, and abdominal washout.? The anesthetic course was marked by progressive septic shock.? The abdomen was closed and the patient was brought out intubated to ICU. On arrival to the ICU, the patient was in deep shock, and markedly hypovolemic.? Echo showed normal right and left heart, with hyperdynamic function and small IVC.? The patient was volume resuscitated, with excellent hemodynamic response.? A central line and arterial line were placed.? The patient was continued on Meropenam. The patient had a somewhat brook course since then.? Here renal indices lakshmi, but creat peaked at 1.7 on May 25.? She developed fever and multiple intraabdominal abscesses and had mult drains placed in IR:? In the left upper quadrant on 05/30, the pelvis on 05/30, the right lateral abdomen 06/02, and the left paracolic gutter on 06/02.? Flagyl was added to meropnenam. Subsequently she?s been improving slowly.? She was initially put on TPN.? She was extubated on 06/07.? Now on tube feeds.? Since then has had some anxiety and mild ICU encephalopathy, along w moderate ICU myopathy.? She was on a Lasix drip which I stopped today.? She has had some high residuals, for which she?s on Reglan and erythromycin. On 06/13 she was found to have a cold left foot, with loss of palp pulses and decreased capill refill.? Over the course of 3 hours or so, the foot warmed up and capill refill returned to normal.? We started her on heparin.? Arterial duplex US showed no hemod signif stenosis.? Aortic CTA w runoff showed a short segment of limited contrast opacification of the distal left tibialis anterior just above the ankle, artifactual vs focal stenosis, more likely the former, w subsequent opacification/flow within the dorsalis pedis. ?Otherwise, patent runoff bilaterally, w no hemodynamically significant stenosis or arterial cutoff.? We stopped the heparin after [address] abdomen on 06/13 bec of increasing WBC showed no intra-abdominal free air, dilated bowel loops or bowel wall thickening.? There were multiple loculated and/or incompletely loculated peripherally enhancing fluid collections in the abdomen and pelvis suspicious for infected collections/abscesses, which Dr. Hagan felt were improved compared to the prior study. This morning she?s awake, still mod confused.? Still mildly tachypneic w minimal WOB.? Sat 93% on room air.? This morning?s CVBG showed 7.55/27/+2 (Diamox was d/c?d yest).? HR 113, SR, before her metoprolol 75 mg.? BP 156/75.? Afebrile.? No JVD in the chair.? Chest shows good excursion, clear to auscultation, normal expiratory phase.? The abdomen is mildly rotund, not distended.? Good bowel sounds.? Anasarca has resolved, and < 1+ pretibial edema.? Both feet equal, warm temperature, with normal capill refill.? UE strength is 3-/5. Total i/o balance down to +3L after the Lasix drip. LABORATORY DATA: ?Below.? Notably, WBC persisting at 16.? BUN/creat up slightly on the Lasix drip, potassium 3.0. IMPRESSION: 1. Underlying obesity. 2. Perforated viscus w fecal peritonitis.? Obviously not acute.? Suspect she perforated the morning of admission when she had sudden onset pain.? The pathology report showed no evidence of Crohn?s. 3. Tachycardia.? Likely SIRS.? Improved with increased metoprolol to 75 mg bid. 4. Acute resp failure.? Oxygenation improved.? Stopped the Lasix today bec of climbing renal indices. 5. SABINE.? 2? septic shock.? Resolved. 6. ID:? On meropenem and flagyl.? Afebrile.? CT showed nothing new.? Plan to stop metronidazole and merem when WBC [address] or less.? Consulted Dr. Nielsen again today. 7. GI.? Added standing Reglan and erythromycin for tube feeds.? Follow. 8. Cold left foot.? Resolved.? Follow. 9. Neuro/psych.? Precedex and fentanyl off, using Dilaudid for pain.? Still somewhat confused.? Improving slowly.? Restart venlafaxine and topiramate. 10. Moderate ICU myopathy.? Improving very slowly. 11. Anemia.? 2? phelebotomies and not making red cells. 12. Metabolic alkalosis.? Secondary to diuresis.? Hold Diamox. 13. Hyperglycemia.? SS insulin. 14. Hypokalemia.? Replete. 15. Nutrition. ?On Vital. 16. DVT proph.? On heparin and ICS. Critical Care Time (minutes): 0 Physical Exam Vital Signs: Vital Signs: Last Vital Signs Temp 98.0 F 06/17/22 08:00 Pulse 122 H 06/17/22 09:00 Resp 29 H 06/17/22 09:00 BP 156/75 H 06/17/22 09:00 Pulse Ox 94 06/17/22 09:00 O2 Del Method 06/17/22 09:00 O2 Flow Rate 1 06/16/22 20:00 FiO2 35 06/14/22 12:00 Oxygen Flow Rate 35 06/13/22 21:00 BMI result Body Mass Index 35.6 Objective Data Labs CBC & Chem 7: 06/17/22 05:20 06/17/22 05:21 Labs: Laboratory Results - last 24 hr 06/16/22 06/16/22 06/16/22 12:10 17:51 23:50 WBC RBC Hgb Hct MCV MCH MCHC RDW Plt Count MPV Absolute Nucleated RBC Nucleated RBC % (auto) VBG pH VBG pCO2 VBG pO2 VBG HCO3 VBG O2 Saturation VBG Base Excess Sodium Potassium Chloride Carbon Dioxide Anion Gap BUN Creatinine Estim Creat Clear Calc Estimated GFR POC Glucose 172 H 156 H 116 H Random Glucose Calcium Phosphorus Magnesium 06/17/22 06/17/22 06/17/22 05:20 05:21 05:26 WBC 16.0 H RBC 3.04 L Hgb 8.8 L Hct 27.2 L MCV 89.5 MCH 28.9 MCHC 32.4 RDW 16.8 H Plt Count 364 MPV 10.2 Absolute Nucleated RBC 0.020 H Nucleated RBC % (auto) 0.1 VBG pH 7.55 H VBG pCO2 27 VBG pO2 43 VBG HCO3 24 VBG O2 Saturation 69.0 VBG Base Excess 2.9 Sodium 143 Potassium 3.0 L Chloride 103 Carbon Dioxide 26 Anion Gap 17 BUN 25 H Creatinine 0.67 Estim Creat Clear Calc 97.9 Estimated GFR > 60 POC Glucose Random Glucose 146 H Calcium 8.5 Phosphorus 4.0 Magnesium 1.9 Microbiology Microbiology Results: Microbiology 06/02/22 Unknown Abscess Intra-abdominal Fungal Identification - Preliminary Verónica dubliniensis 06/03/22 15:28 Blood - Subclavian Blood Culture - Final No growth after 5 days. 06/03/22 06:15 Blood - Venous Blood Culture - Final No growth after 5 days. 06/03/22 06:15 Blood - Venous Blood Culture - Final No growth after 5 days. 06/02/22 Unknown Peritoneal Fluid Gram Stain - Final 06/02/22 Unknown Peritoneal Fluid Routine Culture - Final Verónica albicans 06/02/22 Unknown Peritoneal Fluid Anaerobic Culture - Final 05/29/22 15:14 Blood - Venous Blood Culture - Final No growth after 5 days. 05/29/22 15:13 Blood - Venous Blood Culture - Final No growth after 5 days. 05/29/22 05:14 Blood - Venous Blood Culture - Final No growth after 5 days. 05/29/22 05:14 Blood - Venous Blood Culture - Final No growth after 5 days. 06/02/22 Unknown Abscess Intra-abdominal Gram Stain - Final 06/02/22 Unknown Abscess Intra-abdominal Routine Culture - Final 06/02/22 Unknown Abscess Intra-abdominal Anaerobic Culture - Final 06/02/22 Unknown Abscess Intra-abdominal Gram Stain - Final 06/02/22 Unknown Abscess Intra-abdominal Routine Culture - Final 05/28/22 Unknown Peritoneal Fluid Gram Stain - Final 05/28/22 Unknown Peritoneal Fluid Anaerobic Culture - Final 05/28/22 Unknown Peritoneal Fluid Body Fluid Culture - Final Verónica dubliniensis 05/29/22 15:05 Sputum - Suctioned Gram Stain - Final 05/29/22 15:05 Sputum - Suctioned Sputum Culture - Final Verónica dubliniensis 05/28/22 16:47 Sputum - Suctioned Gram Stain - Final 05/28/22 16:47 Sputum - Suctioned Sputum Culture - Final Verónica albicans 05/23/22 Unknown Peritoneal Fluid Gram Stain - Final 05/23/22 Unknown Peritoneal Fluid Routine Culture - Final Escherichia coli 05/23/22 Unknown Peritoneal Fluid Anaerobic Culture - Final Clostridium perfringens Bacteroides thetaiotaomicron 05/19/22 08:49 Blood - Venous Blood Culture - Final No growth after 5 days. 05/19/22 08:49 Blood - Venous Blood Culture - Final No growth after 5 days. Quality Stroke Does the patient have a stroke diagnosis?: No VTE Prior VTE?: No VTE Risk Level:: Medical - moderate - high VTE Device Contraindication: N/A - Device Ordered VTE Drug Contraindication: N/A - Med Ordered
[2022-06-17] MEDS: Sodium,Potassium Phosphates POWD.PACK 1 PACKET PO ×4 (10:00→20:04)
[2022-06-17] MEDS: Metoprolol Tartrate 25 MG TABLET 75 MG NG-TUBE ×2 (10:00→20:06)
[2022-06-17] MEDS: Nystatin Powder 15 GM BOTTLE 1 APPL TOPICAL ×2 (10:00→20:06)
--- NOTE | 2022-06-17 10:08 | PM.PNGS ---
Subjective Subjective Date of Service: 06/17/22 Patient reports: still having pain Interval history: The patient is seen in coverage for Dr. Hagan. Patient has a nasoenteric feeding tube placed and tube feeds have started, on the patient reports abdominal pain. She denies difficulty breathing or shortness of breath. She is having some gas and liquid drainage from her stoma. Physical Exam Vital Signs: Vital Signs: Last Vital Signs Temp 98.0 F 06/17/22 08:00 Pulse 122 H 06/17/22 09:00 Resp 29 H 06/17/22 09:00 BP 156/75 H 06/17/22 09:00 Pulse Ox 94 06/17/22 09:00 O2 Del Method 06/17/22 09:00 O2 Flow Rate 1 06/16/22 20:00 FiO2 35 06/14/22 12:00 Oxygen Flow Rate 35 06/13/22 21:00 BMI result Body Mass Index 35.6 The patient is nontoxic Dressings are clean, dry and intact Stoma is viable with dark/serosanguineous material but no gross stool. Some gas is noted Objective Data Active Medications Heparin Sodium (Porcine) (Heparin Sodium,Porcine 5,000 Unit/Ml Vial) 5,000 unit SUBCUT Q8H [facility] Last Admin: 06/17/22 07:41 Dose: 5,000 unit Documented By: DONTRELL Hydromorphone HCl (Hydromorphone Hcl 0.5 Mg/0.5 Ml Syringe) 0.5 mg IVPUSH Q1H PRN; Protocol PRN Reason: mild pain Last Admin: 06/17/22 03:10 Dose: 0.5 mg Documented By: RIOS Metronidazole (Flagyl) 500 mg in 100 mls @ 100 mls/hr IV Q8H [facility] Last Admin: 06/17/22 09:56 Dose: 100 mls/hr Documented By: DONTRELL Meropenem 1 gm/ Sodium (Chloride) 100 mls @ 200 mls/hr IV Q8H [facility] Last Admin: 06/17/22 09:53 Dose: 200 mls/hr Documented By: DONTRELL Erythromycin Lactobionate 500 (mg/ Sodium Chloride) 100 mls @ 100 mls/hr IV Q8H [facility] Last Admin: 06/17/22 09:58 Dose: 100 mls/hr Documented By: DONTRELL Magnesium Sulfate/Dextrose (Magnesium Sulfate/D5w) 1 gm in 100 mls @ 100 mls/hr IV ONCE ONE Stop: 06/17/22 10:47 Metoclopramide HCl (Metoclopramide Hcl 10 Mg/2 Ml Vial) 5 mg IVPUSH Q6H [facility] Last Admin: 06/17/22 06:03 Dose: 5 mg Documented By: RIOS Metoprolol Tartrate (Metoprolol Tartrate 100 Mg Tablet) 100 mg NG-TUBE BID [facility]; Protocol Metoprolol Tartrate (Metoprolol Tartrate 50 Mg Tablet) 50 mg G-TUBE ONCE ONE; Protocol Stop: 06/17/22 09:47 Nystatin (Nystatin Powder 15 Gm Bottle) 1 appl TOPICAL BID [facility]; Protocol Last Admin: 06/17/22 10:00 Dose: 1 appl Documented By: DONTRELL Ondansetron HCl (Ondansetron Hcl 4 Mg/2 Ml Vial) 4 mg IVPUSH Q6H PRN PRN Reason: Nausea Last Admin: 06/13/22 13:16 Dose: 4 mg Documented By: SANTOS Pharmacy Consult (Consult Rx Perform Med Rec) 1 each MISCELLANE ONCE PRN PRN Reason: Consult order Potassium Chloride (Potassium Chloride Packet 20 Meq Packet) 40 meq G-TUBE Q6H [facility] Stop: 06/17/22 22:01 Potassium Phos/Sodium Phos (Sodium,Potassium Phosphates Powd.Pack) 1 packet PO QID [facility] Last Admin: 06/17/22 10:00 Dose: 1 packet Documented By: DONTRELL Sodium Chloride (0.9 % Sodium Chloride Flush 3 Ml Syringe) 3 ml IVFLUSH QSHIFT [facility] Last Admin: 06/17/22 07:41 Dose: 3 ml Documented By: DONTRELL Labs CBC & Chem 7: 06/17/22 05:20 06/17/22 05:21 Labs: Laboratory Results - last 24 hr 06/16/22 06/16/22 06/16/22 12:10 17:51 23:50 MCV MCH MCHC RDW Plt Count MPV Absolute Nucleated RBC Nucleated RBC % (auto) VBG pH VBG pCO2 VBG pO2 VBG HCO3 VBG O2 Saturation VBG Base Excess Anion Gap Estim Creat Clear Calc Estimated GFR POC Glucose 172 H 156 H 116 H Random Glucose Calcium Phosphorus Magnesium 10/08/22 10/08/22 10/08/22 05:20 05:21 05:26 MCV 89.5 MCH 28.9 MCHC 32.4 RDW 16.8 H Plt Count 364 MPV 10.2 Absolute Nucleated RBC 0.020 H Nucleated RBC % (auto) 0.1 VBG pH 7.55 H VBG pCO2 27 VBG pO2 43 VBG HCO3 24 VBG O2 Saturation 69.0 VBG Base Excess 2.9 Anion Gap 17 Estim Creat Clear Calc 97.9 Estimated GFR > 60 POC Glucose Random Glucose 146 H Calcium 8.5 Phosphorus 4.0 Magnesium 1.9 Procedures Date of Service Date of Service: 06/17/22 Arterial Line Size (Gauge): 16 Progress Note: A&P Assessment and plan (1) Peritonitis: Status: Acute (2) Status post colostomy: Status: Acute (3) Crohn's disease: Status: Acute (4) Ileus following gastrointestinal surgery: Status: Acute Plan Continue present management Await better bowel function. Check feeding tube residuals and titrate tube feeds per patient tolerance. Time Spent With Patient Time: Total time spent is greater than 50% in coordination of care (as documented) at patient's floor/unit and/or counseling patient: Quality Stroke Does the patient have a stroke diagnosis?: No VTE Prior VTE?: No VTE Risk Level:: Medical - moderate - high VTE Device Contraindication: N/A - Device Ordered VTE Drug Contraindication: N/A - Med Ordered
[2022-06-17] MEDS: Magnesium Sulfate/D5W 1 GM/100 ML PIGGYBACK IV (10:58)
[2022-06-17] MEDS: Potassium Chloride Packet 20 MEQ PACKET 40 MEQ G-TUBE ×3 (10:59→22:01)
[2022-06-17] MEDS: Topiramate 100 MG TABLET 200 MG G-TUBE ×2 (12:07→20:04)
[2022-06-17] MEDS: lisinopriL 5 MG TABLET PO (12:07)
[2022-06-17] MEDS: Venlafaxine HCL 25 MG TABLET G-TUBE ×2 (12:08→20:04)
--- NOTE | 2022-06-17 19:31 | PC.NURSE ---
PT SLIGHTLY CONFUSED TO TIME AND LOCATION ON MORNING ASSESSMENT, RETURNED TO BASELINE A&O X4 DAY PROGRESSED. ABDOMINAL BANDAGES CHANGED SMALL DRAINAGE NOTED ON LOWER PORTION OF ABDOMINAL MIDLINE INCISION. COLOSTOMY PRODUCED 750 ML OF LIQUID BROWN STOOL THROUGHOUT SHIFT. PATIENT STARTED ON 5MG OF LOPRESSOR PER MD, SEE EMAR. FAMILY AND PATIENT UPDATED ON HEALTH STATUS, PATIENT REPOSITIONED Q2HR, BATHED, ORAL CARE PREFORMED.
--- NOTE | 2022-06-17 21:56 | PM.IDPN ---
Subjective Subjective Date of Service: 06/17/22 Critical Care Time (minutes): 15 Comment: she feels well she has some leukocytosis,increased Objective Data Labs CBC & Chem 7: 06/17/22 05:20 06/17/22 05:21 Labs: Laboratory Results - last 24 hr 06/16/22 06/17/22 06/17/22 23:50 05:20 05:21 WBC 16.0 H RBC 3.04 L Hgb 8.8 L Hct 27.2 L MCV 89.5 MCH 28.9 MCHC 32.4 RDW 16.8 H Plt Count 364 MPV 10.2 Absolute Nucleated RBC 0.020 H Nucleated RBC % (auto) 0.1 VBG pH VBG pCO2 VBG pO2 VBG HCO3 VBG O2 Saturation VBG Base Excess Sodium 143 Potassium 3.0 L Chloride 103 Carbon Dioxide 26 Anion Gap 17 BUN 25 H Creatinine 0.67 Estim Creat Clear Calc 97.9 Estimated GFR > 60 POC Glucose 116 H Random Glucose 146 H Calcium 8.5 Phosphorus 4.0 Magnesium 1.9 06/17/22 06/17/22 06/17/22 05:26 11:59 18:09 WBC RBC Hgb Hct MCV MCH MCHC RDW Plt Count MPV Absolute Nucleated RBC Nucleated RBC % (auto) VBG pH 7.55 H VBG pCO2 27 VBG pO2 43 VBG HCO3 24 VBG O2 Saturation 69.0 VBG Base Excess 2.9 Sodium Potassium Chloride Carbon Dioxide Anion Gap BUN Creatinine Estim Creat Clear Calc Estimated GFR POC Glucose 146 H 140 H Random Glucose Calcium Phosphorus Magnesium Microbiology Microbiology Results: Microbiology 06/02/22 Unknown Abscess Intra-abdominal Fungal Identification - Preliminary Verónica dubliniensis 06/03/22 15:28 Blood - Subclavian Blood Culture - Final No growth after 5 days. 06/03/22 06:15 Blood - Venous Blood Culture - Final No growth after 5 days. 06/03/22 06:15 Blood - Venous Blood Culture - Final No growth after 5 days. 06/02/22 Unknown Peritoneal Fluid Gram Stain - Final 06/02/22 Unknown Peritoneal Fluid Routine Culture - Final Verónica albicans 06/02/22 Unknown Peritoneal Fluid Anaerobic Culture - Final 05/29/22 15:14 Blood - Venous Blood Culture - Final No growth after 5 days. 05/29/22 15:13 Blood - Venous Blood Culture - Final No growth after 5 days. 05/29/22 05:14 Blood - Venous Blood Culture - Final No growth after 5 days. 05/29/22 05:14 Blood - Venous Blood Culture - Final No growth after 5 days. 06/02/22 Unknown Abscess Intra-abdominal Gram Stain - Final 06/02/22 Unknown Abscess Intra-abdominal Routine Culture - Final 06/02/22 Unknown Abscess Intra-abdominal Anaerobic Culture - Final 06/02/22 Unknown Abscess Intra-abdominal Gram Stain - Final 06/02/22 Unknown Abscess Intra-abdominal Routine Culture - Final 05/28/22 Unknown Peritoneal Fluid Gram Stain - Final 05/28/22 Unknown Peritoneal Fluid Anaerobic Culture - Final 05/28/22 Unknown Peritoneal Fluid Body Fluid Culture - Final Verónica dubliniensis 05/29/22 15:05 Sputum - Suctioned Gram Stain - Final 05/29/22 15:05 Sputum - Suctioned Sputum Culture - Final Verónica dubliniensis 05/28/22 16:47 Sputum - Suctioned Gram Stain - Final 05/28/22 16:47 Sputum - Suctioned Sputum Culture - Final Verónica albicans 05/23/22 Unknown Peritoneal Fluid Gram Stain - Final 05/23/22 Unknown Peritoneal Fluid Routine Culture - Final Escherichia coli 05/23/22 Unknown Peritoneal Fluid Anaerobic Culture - Final Clostridium perfringens Bacteroides thetaiotaomicron 05/19/22 08:49 Blood - Venous Blood Culture - Final No growth after 5 days. 05/19/22 08:49 Blood - Venous Blood Culture - Final No growth after 5 days. Physical Exam Vital Signs: Vital Signs: Last Vital Signs Temp 98.2 F 06/17/22 12:00 Pulse 86 06/17/22 21:00 Resp 21 H 06/17/22 21:00 BP 140/81 H 06/17/22 21:00 Pulse Ox 95 06/17/22 21:00 O2 Del Method 06/17/22 21:00 O2 Flow Rate 1 06/16/22 20:00 FiO2 35 06/14/22 12:00 Oxygen Flow Rate 35 06/13/22 21:00 BMI result Body Mass Index 35.6 Const: General: cooperative HEENT: Head: Yes normal to inspection Mouth: Normal oral and palatal mucosa present Resp: Effort & Inspection: normal respiratory effort Cardio: Rate: regular rate Rhythm: regular rhythm GI: Palpation (GI): Soft to palpation and nontender Extrem: General: Yes normal to inspection Assessment and Plan Assessment and plan (1) Leukocytosis: Problem details: She doesnt seem to have active infection at this time She has probable stress leukocytosis Status: Acute Assessment and Plan: Would stop Taniam and yl. Observe prospectively Time Spent With Patient Time: Total time spent is greater than 50% in coordination of care (as documented) at patient's floor/unit and/or counseling patient: Procedures Arterial Line Size (Gauge): 16
[2022-06-18] VITALS (20 sets, daily range): BP systolic 141–175; BP diastolic 59–97; PULSE 81–112; RESP 16–33; TEMP 36.9–37.5; O2SAT 92–96; BMI 36.1
[2022-06-18] MEDS: Metoclopramide HCl 10 MG/2 ML VIAL 5 MG IVPUSH ×3 (05:02→18:35)
[2022-06-18 05:52] LABS: Hematocrit 27.2 % (37.0-47.0); Hemoglobin 8.9 g/dl (12.0-16.0); Mean Corpuscular HGB Conc 32.7 g/dl (31.0-35.0); Mean Corpuscular Volume 91.6 fL (80.0-98.0); Mean Platelet Volume 10.3 fL (9.4-12.3); Platelet Count 354 X10*3/uL (160-400); Red Blood Count 2.97 X10*6/uL (4.20-5.50); White Blood Count 15.5 X10*3/uL (4.8-10.8)
[2022-06-18 06:13] LABS: Anion Gap 15 (12-20); Blood Urea Nitrogen 25 mg/dL (9-16); Calcium 8.9 mg/dL (8.4-10.2); Carbon Dioxide 23 mmol/L (22-29); Chloride 111 mmol/L (96-108); Creatinine Clr Calc Pharmacy 106.5; Estimated Glomerular Filt Rate > 60; Glucose Random 152 mg/dL (60-115); Magnesium 2.2 mg/dL (1.6-2.6); Phosphorus 3.3 mg/dL (2.7-4.5); Potassium 3.9 mmol/L (3.3-5.1); Sodium 145 mmol/L (135-145)
[2022-06-18 07:10] LABS: Venous Blood Gas Refer to POC result
[2022-06-18] MEDS: 0.9 % Sodium Chloride Flush 3 ML SYRINGE IVFLUSH ×3 (08:36→21:05)
[2022-06-18] MEDS: Heparin Sodium,Porcine 5,000 UNIT/ML VIAL 5000 UNIT SUBCUT ×2 (08:36→16:19)
[2022-06-18] MEDS: lisinopriL 5 MG TABLET PO (08:37)
[2022-06-18] MEDS: Venlafaxine HCL 25 MG TABLET G-TUBE (08:37)
[2022-06-18] MEDS: Metoprolol Tartrate 25 MG TABLET 75 MG NG-TUBE ×2 (08:37→21:04)
[2022-06-18] MEDS: Topiramate 100 MG TABLET 200 MG G-TUBE ×2 (08:37→21:04)
--- NOTE | 2022-06-18 09:41 | PM.PNGS ---
Subjective Subjective Date of Service: 06/18/22 Interval history: The patient is seen in coverage for Dr. Hagan. Patient reports she feels a little better than yesterday and is tolerating a little bit of liquid by mouth. She notes that her pain is improved and otherwise is just tired. She denies any chest pain, difficulty breathing or shortness of breath. Physical Exam Vital Signs: Vital Signs: Last Vital Signs Temp 99.4 F 06/18/22 08:00 Pulse 95 06/18/22 09:00 Resp 25 H 06/18/22 09:00 BP 169/79 H 06/18/22 09:00 Pulse Ox 94 06/18/22 09:00 O2 Del Method 06/18/22 09:00 O2 Flow Rate 1 06/16/22 20:00 FiO2 35 06/14/22 12:00 Oxygen Flow Rate 35 06/13/22 21:00 BMI result Body Mass Index 36.1 The patient appears comfortable Dressings are intact Objective Data Active Medications Heparin Sodium (Porcine) (Heparin Sodium,Porcine 5,000 Unit/Ml Vial) 5,000 unit SUBCUT Q8H [facility] Last Admin: 06/18/22 08:36 Dose: 5,000 unit Documented By: LAURIE Hydromorphone HCl (Hydromorphone Hcl 0.5 Mg/0.5 Ml Syringe) 0.5 mg IVPUSH Q1H PRN; Protocol PRN Reason: mild pain Last Admin: 06/17/22 03:10 Dose: 0.5 mg Documented By: RIOS Erythromycin Lactobionate 500 (mg/ Sodium Chloride) 100 mls @ 100 mls/hr IV Q8H [facility] Last Admin: 06/18/22 08:54 Dose: 100 mls/hr Documented By: LAURIE Lisinopril (Lisinopril 5 Mg Tablet) 5 mg PO DAILY [facility]; Protocol Last Admin: 06/18/22 08:37 Dose: 5 mg Documented By: LAURIE Metoclopramide HCl (Metoclopramide Hcl 10 Mg/2 Ml Vial) 5 mg IVPUSH Q6H [facility] Last Admin: 06/18/22 05:02 Dose: 5 mg Documented By: RIOS Metoprolol Tartrate (Metoprolol Tartrate 25 Mg Tablet) 75 mg NG-TUBE BID [facility]; Protocol Last Admin: 06/18/22 08:37 Dose: 75 mg Documented By: LAURIE Modafinil (Modafinil 100 Mg Tablet) 100 mg G-TUBE DAILY@0800 [facility] Last Admin: 06/18/22 08:36 Dose: Not Given Documented By: LAURIE Non-Admin Reason: Patient Condition Contraindication Nystatin (Nystatin Powder 15 Gm Bottle) 1 appl TOPICAL BID [facility]; Protocol Last Admin: 06/18/22 08:58 Dose: Not Given Documented By: LAURIE Non-Admin Reason: Med Not Available Ondansetron HCl (Ondansetron Hcl 4 Mg/2 Ml Vial) 4 mg IVPUSH Q6H PRN PRN Reason: Nausea Last Admin: 06/13/22 13:16 Dose: 4 mg Documented By: SANTOS Pharmacy Consult (Consult Rx Perform Med Rec) 1 each MISCELLANE ONCE PRN PRN Reason: Consult order Potassium Phos/Sodium Phos (Sodium,Potassium Phosphates Powd.Pack) 1 packet PO QID [facility] Last Admin: 06/18/22 08:58 Dose: Not Given Documented By: LAURIE Non-Admin Reason: See Note Sodium Chloride (0.9 % Sodium Chloride Flush 3 Ml Syringe) 3 ml IVFLUSH QSHIFT [facility] Last Admin: 06/18/22 08:36 Dose: 3 ml Documented By: LAURIE Topiramate (Topiramate 100 Mg Tablet) 200 mg G-TUBE BID [facility] Last Admin: 06/18/22 08:37 Dose: 200 mg Documented By: LAURIE Venlafaxine HCl (Venlafaxine Hcl 25 Mg Tablet) 25 mg G-TUBE BID [facility] Last Admin: 06/18/22 08:37 Dose: 25 mg Documented By: LAURIE Labs CBC & Chem 7: 06/18/22 05:35 06/18/22 05:35 Labs: Laboratory Results - last 24 hr 06/17/22 06/17/22 06/17/22 11:59 18:09 23:39 MCV MCH MCHC RDW Plt Count MPV Absolute Nucleated RBC Nucleated RBC % (auto) VBG pH VBG pCO2 VBG pO2 VBG HCO3 VBG O2 Saturation VBG Base Excess Anion Gap Estim Creat Clear Calc Estimated GFR POC Glucose 146 H 140 H 128 H Random Glucose Calcium Phosphorus Magnesium 06/18/22 06/18/22 06/18/22 05:20 05:35 05:35 MCV 91.6 MCH 30.0 MCHC 32.7 RDW 17.0 H Plt Count 354 MPV 10.3 Absolute Nucleated RBC 0.000 Nucleated RBC % (auto) 0.0 VBG pH VBG pCO2 VBG pO2 VBG HCO3 VBG O2 Saturation VBG Base Excess Anion Gap 15 Estim Creat Clear Calc 106.5 Estimated GFR > 60 POC Glucose 134 H Random Glucose 152 H Calcium 8.9 Phosphorus 3.3 Magnesium 2.2 06/18/22 05:39 MCV MCH MCHC RDW Plt Count MPV Absolute Nucleated RBC Nucleated RBC % (auto) VBG pH 7.51 H VBG pCO2 23 VBG pO2 40 VBG HCO3 19 L VBG O2 Saturation 64.0 VBG Base Excess -2.5 Anion Gap Estim Creat Clear Calc Estimated GFR POC Glucose Random Glucose Calcium Phosphorus Magnesium Procedures Date of Service Date of Service: 06/18/22 Arterial Line Size (Gauge): 16 Progress Note: A&P Assessment and plan (1) Leukocytosis: Status: Acute (2) Peritonitis: Status: Acute (3) Crohn's disease: Status: Acute (4) Status post colostomy: Status: Acute (5) Ileus following gastrointestinal surgery: Status: Acute Plan Continue patient management as ordered. Patient is tentatively planned to be downgraded today to IMCU. Dr. Hagan to resume care tomorrow. Time Spent With Patient Time: Total time spent is greater than 50% in coordination of care (as documented) at patient's floor/unit and/or counseling patient: Quality Stroke Does the patient have a stroke diagnosis?: No VTE Prior VTE?: No VTE Risk Level:: Medical - moderate - high VTE Device Contraindication: N/A - Device Ordered VTE Drug Contraindication: N/A - Med Ordered
--- NOTE | 2022-06-18 10:44 | PM.CCPN ---
Subjective Subjective Date of Service: 06/18/22 Interval History: Mrs. Hankins was transferred to the ICU on May 23 from the OR after emergency sigmoid resection and colostomy for perforated viscus. The patient is a 62 year old female with history of Crohn's disease who presented to the ED May 18 complaining of 2 weeks of abdominal pain.? She?d been treated during that time with prednisone for a presumed Crohn?s flare.? On the morning of presentation, she developed sudden onset of sharp abdom pain.? Initial CT scan suggested severe constipation and a question of partial obstruction with worsening severe colitis of the sigmoid colon and proctitis, with increased wall thickening.? There was no evidence of free air.? She was treated with opiates and Zosyn.? The patient was admitted to Medicine and started on systemic steroids. ?Lactic acid was normal on May 19. The patient had no relief with tx.? She therefore underwent flex sig by Dr. Peralta on May 23 at which he found a large abscess cavity in the sigmoid with some associated ulceration, stool, and a second area of ulceration, which was biopsied.? Post procedure the patient had significant worsening of her abdominal exam; stat ct showed free air and fluid with a pelvic abscess. ?She was taken directly to the OR. At laparotomy, found a large perforation in the distal sigmoid, with two large stool balls immediately adjacent to the perforation.? There was extensive peritoneal fecal soilage, w marked indurated peritonitis especially in the pelvis, with the sigmoid covered in thick inflammatory rind.? She underwent extensive lysis of adhesions, sigmoid resection and colostomy, and abdominal washout.? The anesthetic course was marked by progressive septic shock.? The abdomen was closed and the patient was brought out intubated to ICU. On arrival to the ICU, the patient was in deep shock, and markedly hypovolemic.? Echo showed normal right and left heart, with hyperdynamic function and small IVC.? The patient was volume resuscitated, with excellent hemodynamic response.? A central line and arterial line were placed.? The patient was continued on Meropenam. The patient had a somewhat brook course since then.? Here renal indices lakshmi, but creat peaked at 1.7 on May 25.? She developed fever and multiple intraabdominal abscesses and had mult drains placed in IR:? In the left upper quadrant on 05/30, the pelvis on 05/30, the right lateral abdomen 06/02, and the left paracolic gutter on 06/02.? Flagyl was added to meropnenam. Subsequently she?s been improving slowly.? She was initially put on TPN.? She was extubated on 06/07.? Was on tube feeds until she pulled her Kaofeed tube this morning.? Now eating pureed diet. ?She had some high residuals, for which she?s on Reglan and erythromycin.? Has had some anxiety and mild ICU encephalopathy, along w moderate ICU myopathy.? She was on a Lasix drip which I stopped yesterday. On 06/13 she was found to have a cold left foot, with loss of palp pulses and decreased capill refill.? Over the course of 3 hours or so, the foot warmed up and capill refill returned to normal.? We started her on heparin.? Arterial duplex US showed no hemod signif stenosis.? Aortic CTA w runoff showed a short segment of limited contrast opacification of the distal left tibialis anterior just above the ankle, artifactual vs focal stenosis, more likely the former, w subsequent opacification/flow within the dorsalis pedis. ?Otherwise, patent runoff bilaterally, w no hemodynamically significant stenosis or arterial cutoff.? We stopped the heparin after [address] abdomen on 06/13 bec of increasing WBC showed no intra-abdominal free air, dilated bowel loops or bowel wall thickening.? There were multiple loculated and/or incompletely loculated peripherally enhancing fluid collections in the abdomen and pelvis suspicious for infected collections/abscesses, which Dr. Hagan felt were improved compared to the prior study.? I d/c?d her antibiotics yesterday.? Dr. Prabhakar has pulled both drains on the right, she has two drains in on the left, both with minimal output. She didn?t sleep last night, but this morning she?s more awake than I?ve seen her, much less confused.? Still mildly tachypneic w minimal WOB.? Sat 95% on room air.? This morning?s CVBG 7.51/23/-2.? HR 85, SR, on metoprolol 75 mg bid.? BP 144/62.? Afebrile.? No JVD at 30?.? Chest shows good excursion, clear to auscultation, normal expiratory phase.? The abdomen is mildly rotund, not distended.? Good bowel sounds.? Anasarca has resolved, and she has no leg edema.? Both feet equal, warm temperature, with normal capill refill. Total i/o balance down to +2.8L after the Lasix drip. LABORATORY DATA: ?Below.? Notably, WBC persisting at 15. IMPRESSION: 1. Underlying obesity. 2. Perforated viscus w fecal peritonitis.? Obviously not acute.? Suspect she perforated the morning of admission when she had sudden onset pain.? The pathology report showed no evidence of Crohn?s. 3. Tachycardia and tachypnea.? ? 2? SIRS.? Tachycardia much improved with increased metoprolol to 75 mg bid. 4. Acute resp failure.? Oxygenation improved.? Stopped the Lasix today bec of climbing renal indices. 5. SABINE.? 2? septic shock.? Resolved. 6. ID:? Was on meropenem and flagyl for about 3 weeks[address] A[address] CT showed nothing new.? Discussed with Dr. Nielsen again yesterday and she rec stopping the abx. 7. GI.? Added standing Reglan and erythromycin.? Follow. 8. Cold left foot.? Resolved.? Follow. 9. Neuro/psych.? Still somewhat confused but improving slowly.? Restarted duloxetine and topiramate. 10. Moderate ICU myopathy.? Improving very slowly. 11. Anemia.? 2? phelebotomies and not making red cells. 12. Hyperglycemia.? SS insulin. 13. DVT proph.? On heparin and ICS. Stable for transfer to surgical service on [facility].? OK?d with Dr. Thapa.? Arranged for hospitalist consult. Critical Care Time (minutes): 0 Physical Exam Vital Signs: Vital Signs: Last Vital Signs Temp 99.4 F 06/18/22 08:00 Pulse 81 06/18/22 10:00 Resp 23 H 06/18/22 10:00 BP 144/62 H 06/18/22 10:00 Pulse Ox 94 06/18/22 10:00 O2 Del Method 06/18/22 10:00 O2 Flow Rate 1 06/16/22 20:00 FiO2 35 06/14/22 12:00 Oxygen Flow Rate 35 06/13/22 21:00 BMI result Body Mass Index 36.1 Objective Data Labs CBC & Chem 7: 06/18/22 05:35 06/18/22 05:35 Labs: Laboratory Results - last 24 hr 06/17/22 06/17/22 06/17/22 11:59 18:09 23:39 WBC RBC Hgb Hct MCV MCH MCHC RDW Plt Count MPV Absolute Nucleated RBC Nucleated RBC % (auto) VBG pH VBG pCO2 VBG pO2 VBG HCO3 VBG O2 Saturation VBG Base Excess Sodium Potassium Chloride Carbon Dioxide Anion Gap BUN Creatinine Estim Creat Clear Calc Estimated GFR POC Glucose 146 H 140 H 128 H Random Glucose Calcium Phosphorus Magnesium 06/18/22 06/18/22 06/18/22 05:20 05:35 05:35 WBC 15.5 H RBC 2.97 L Hgb 8.9 L Hct 27.2 L MCV 91.6 MCH 30.0 MCHC 32.7 RDW 17.0 H Plt Count 354 MPV 10.3 Absolute Nucleated RBC 0.000 Nucleated RBC % (auto) 0.0 VBG pH VBG pCO2 VBG pO2 VBG HCO3 VBG O2 Saturation VBG Base Excess Sodium 145 Potassium 3.9 D Chloride 111 H Carbon Dioxide 23 Anion Gap 15 BUN 25 H Creatinine 0.60 Estim Creat Clear Calc 106.5 Estimated GFR > 60 POC Glucose 134 H Random Glucose 152 H Calcium 8.9 Phosphorus 3.3 Magnesium 2.2 06/18/22 05:39 WBC RBC Hgb Hct MCV MCH MCHC RDW Plt Count MPV Absolute Nucleated RBC Nucleated RBC % (auto) VBG pH 7.51 H VBG pCO2 23 VBG pO2 40 VBG HCO3 19 L VBG O2 Saturation 64.0 VBG Base Excess -2.5 Sodium Potassium Chloride Carbon Dioxide Anion Gap BUN Creatinine Estim Creat Clear Calc Estimated GFR POC Glucose Random Glucose Calcium Phosphorus Magnesium Microbiology Microbiology Results: Microbiology 06/02/22 Unknown Abscess Intra-abdominal Fungal Identification - Preliminary Verónica dubliniensis 06/03/22 15:28 Blood - Subclavian Blood Culture - Final No growth after 5 days. 06/03/22 06:15 Blood - Venous Blood Culture - Final No growth after 5 days. 06/03/22 06:15 Blood - Venous Blood Culture - Final No growth after 5 days. 06/02/22 Unknown Peritoneal Fluid Gram Stain - Final 06/02/22 Unknown Peritoneal Fluid Routine Culture - Final Verónica albicans 06/02/22 Unknown Peritoneal Fluid Anaerobic Culture - Final 05/29/22 15:14 Blood - Venous Blood Culture - Final No growth after 5 days. 05/29/22 15:13 Blood - Venous Blood Culture - Final No growth after 5 days. 05/29/22 05:14 Blood - Venous Blood Culture - Final No growth after 5 days. 05/29/22 05:14 Blood - Venous Blood Culture - Final No growth after 5 days. 06/02/22 Unknown Abscess Intra-abdominal Gram Stain - Final 06/02/22 Unknown Abscess Intra-abdominal Routine Culture - Final 06/02/22 Unknown Abscess Intra-abdominal Anaerobic Culture - Final 06/02/22 Unknown Abscess Intra-abdominal Gram Stain - Final 06/02/22 Unknown Abscess Intra-abdominal Routine Culture - Final 05/28/22 Unknown Peritoneal Fluid Gram Stain - Final 05/28/22 Unknown Peritoneal Fluid Anaerobic Culture - Final 05/28/22 Unknown Peritoneal Fluid Body Fluid Culture - Final Verónica dubliniensis 05/29/22 15:05 Sputum - Suctioned Gram Stain - Final 05/29/22 15:05 Sputum - Suctioned Sputum Culture - Final Verónica dubliniensis 05/28/22 16:47 Sputum - Suctioned Gram Stain - Final 05/28/22 16:47 Sputum - Suctioned Sputum Culture - Final Verónica albicans 05/23/22 Unknown Peritoneal Fluid Gram Stain - Final 05/23/22 Unknown Peritoneal Fluid Routine Culture - Final Escherichia coli 05/23/22 Unknown Peritoneal Fluid Anaerobic Culture - Final Clostridium perfringens Bacteroides thetaiotaomicron 05/19/22 08:49 Blood - Venous Blood Culture - Final No growth after 5 days. 05/19/22 08:49 Blood - Venous Blood Culture - Final No growth after 5 days. Quality Stroke Does the patient have a stroke diagnosis?: No VTE Prior VTE?: No VTE Risk Level:: Medical - moderate - high VTE Device Contraindication: N/A - Device Ordered VTE Drug Contraindication: N/A - Med Ordered
[2022-06-18] MEDS: Potassium Chloride/H20 40 MEQ/100 ML PIGGYBACK 100 MEQ IV (11:15)
--- NOTE | 2022-06-18 11:55 | MHC.CM.PN ---
Pt continues care in ICU: making slow progress: updated STR referrals in anticipation of d/c soon. Updated pt and pt's spouse on above. Several facilities are following
--- NOTE | 2022-06-18 14:11 | PM.EVENT ---
Event Note Date of Service: 06/18/22 Event Note: ICU transfer. Discussed with Dr. Ramsay, cone treater. 62-year-old woman admitted on 05/18/2022 for question of colitis/Crohn's flare. She was subsequently seen again by Dr. Peralta and had a flexible sigmoidoscopy which showed a perforation with abscess. She was taking to the OR for exploratory laparotomy with colostomy. She had extensive fecal soilage in the peritoneum. Was severely septic and sent to the ICU intubated. She had a fairly rough course of the last several weeks developing multiple intra-abdominal abscesses, fevers. Multiple drains placed in IR. She was treated with Flagyl and meropenem. She was started on TPN for nutrition. She was subsequently extubated on 06/07/2022. She was transition to tube feeds and then today transition to. Septic shock secondary to Perforated viscus with fecal peritonitis. Resolved Status post exploratory laparotomy with colostomy placement Treated with meropenem and Flagyl for approximately 3 weeks, antibiotics subsequently stopped Extubated 06/07/22, initially on TPN, transitioned to tube feeds now on pureed diet General surgery following, drains removed Toxic metabolic encephalopathy Secondary to septic shock from perforated viscus with intubation and infection, complicated course Resolving Now on pureed diet, Reglan and erythromycin for residuals SABINE secondary to septic shock, hypovolemia Resolved Diabetes mellitus type 2 Sliding scale, ADA diet Acute respiratory failure. Extubated 06/07/22 in ICU Tolerating room air Anemia Normocytic, no bleeding Mental health Continue duloxetine and Topamax
[2022-06-18] MEDS: Gabapentin 300 MG CAPSULE PO (21:04)
[2022-06-18] MEDS: HYDROmorphone HCl 0.5 MG/0.5 ML SYRINGE IVPUSH (21:06)
[2022-06-18] MEDS: Nystatin Powder 15 GM BOTTLE 1 APPL TOPICAL (21:09)
[2022-06-19] MEDS: Metoclopramide HCl 10 MG/2 ML VIAL 5 MG IVPUSH ×4 (00:06→17:30)
[2022-06-19] MEDS: Heparin Sodium,Porcine 5,000 UNIT/ML VIAL 5000 UNIT SUBCUT ×3 (00:07→17:30)
[2022-06-19 03:31] VITALS: BP 176/83; PULSE 76; RESP 20; TEMP 37; O2SAT 96
[2022-06-19 06:00] VITALS: BMI 36.1
[2022-06-19 07:03] LABS: Hematocrit 28.8 % (37.0-47.0); Mean Corpuscular HGB Conc 31.3 g/dl (31.0-35.0); Mean Corpuscular Volume 92.9 fL (80.0-98.0); Mean Platelet Volume 10.8 fL (9.4-12.3); Platelet Count 362 X10*3/uL (160-400); Red Cell Distribution Width 16.9 % (11.0-16.0); White Blood Count 16.9 X10*3/uL (4.8-10.8)
[2022-06-19 07:25] LABS: Alanine Aminotransferase 9 U/L (0-31); Albumin Level 3.5 g/dL (3.5-5.0); Alkaline Phosphatase 76 U/L (39-117); Anion Gap 17 (12-20); Aspartate Amino Transferase 20 U/L (5-31); Bilirubin Total 0.6 mg/dL (0.0-1.0); Blood Urea Nitrogen 24 mg/dL (9-16); Calcium 9.1 mg/dL (8.4-10.2); Carbon Dioxide 21 mmol/L (22-29); Chloride 113 mmol/L (96-108); Creatinine Clr Calc Pharmacy 102.9; Estimated Glomerular Filt Rate > 60; Glucose Random 102 mg/dL (60-115); Magnesium 2.2 mg/dL (1.6-2.6); Phosphorus 3.8 mg/dL (2.7-4.5); Potassium 3.8 mmol/L (3.3-5.1); Sodium 147 mmol/L (135-145); Total Protein 6.8 g/dL (6.5-8.0)
[2022-06-19 07:46] LABS: Glucose, Whole Blood 96 mg/dL (60-115)
[2022-06-19] MEDS: Metoprolol Tartrate 25 MG TABLET 75 MG NG-TUBE ×2 (07:52→20:10)
[2022-06-19] MEDS: Topiramate 100 MG TABLET 200 MG G-TUBE ×2 (07:53→20:10)
[2022-06-19] MEDS: lisinopriL 5 MG TABLET PO (07:53)
[2022-06-19 08:02] VITALS: BP 170/82; PULSE 102; RESP 20; TEMP 36.9; O2SAT 94
[2022-06-19] MEDS: Nystatin Powder 15 GM BOTTLE 1 APPL TOPICAL (08:34)
[2022-06-19] MEDS: 0.9 % Sodium Chloride Flush 3 ML SYRINGE IVFLUSH ×3 (08:35→20:11)
--- NOTE | 2022-06-19 08:48 | PM.PNGS ---
Subjective Subjective Date of Service: 06/21/22 Interval history: [place] [facility] [place] confused as baseline looks more comfortable more verabl output stoam functioning Physical Exam Vital Signs: Vital Signs: Last Vital Signs Temp 98.5 F 06/19/22 08:02 Pulse 102 H 06/19/22 08:02 Resp 20 06/19/22 08:02 BP 170/82 H 06/19/22 08:02 Pulse Ox 94 06/19/22 08:02 O2 Del Method 06/19/22 08:02 O2 Flow Rate 1 06/16/22 20:00 FiO2 35 06/14/22 12:00 Oxygen Flow Rate 35 06/13/22 21:00 BMI result Body Mass Index 36.1 Const: General: comfortable and no acute distress Resp: Effort & Inspection: normal respiratory effort Cardio: Rhythm: regular rhythm GI: Other: soft, 2 drains on left with scany thick output, colostomy functioning well, incision clean Palpation (GI): not firm and no guarding Objective Data Active Medications Duloxetine HCl (Duloxetine Hcl 60 Mg Capsule.Dr) 60 mg PO BEDTIME [facility] Gabapentin (Gabapentin 300 Mg Capsule) 300 mg PO BEDTIME [facility] Last Admin: 06/18/22 21:04 Dose: 300 mg Documented By: FRANTZ Heparin Sodium (Porcine) (Heparin Sodium,Porcine 5,000 Unit/Ml Vial) 5,000 unit SUBCUT Q8H [facility] Last Admin: 06/19/22 07:52 Dose: 5,000 unit Documented By: LAUREN Hydromorphone HCl (Hydromorphone Hcl 0.5 Mg/0.5 Ml Syringe) 0.5 mg IVPUSH Q1H PRN; Protocol PRN Reason: mild pain Last Admin: 06/18/22 21:06 Dose: 0.5 mg Documented By: FRANTZ Erythromycin Lactobionate 500 (mg/ Sodium Chloride) 100 mls @ 100 mls/hr IV Q8H [facility] Last Admin: 06/19/22 08:35 Dose: 100 mls/hr Documented By: LAUREN Lisinopril (Lisinopril 5 Mg Tablet) 5 mg PO DAILY [facility]; Protocol Last Admin: 06/19/22 07:53 Dose: 5 mg Documented By: LAUREN Metoclopramide HCl (Metoclopramide Hcl 10 Mg/2 Ml Vial) 5 mg IVPUSH Q6H [facility] Last Admin: 06/19/22 06:15 Dose: 5 mg Documented By: FRANTZ Metoprolol Tartrate (Metoprolol Tartrate 25 Mg Tablet) 75 mg NG-TUBE BID [facility]; Protocol Last Admin: 06/19/22 07:52 Dose: 75 mg Documented By: LAUREN Nystatin (Nystatin Powder 15 Gm Bottle) 1 appl TOPICAL BID [facility]; Protocol Last Admin: 06/19/22 08:34 Dose: 1 appl Documented By: LAUREN Ondansetron HCl (Ondansetron Hcl 4 Mg/2 Ml Vial) 4 mg IVPUSH Q6H PRN PRN Reason: Nausea Last Admin: 06/13/22 13:16 Dose: 4 mg Documented By: SANTOS Pharmacy Consult (Consult Rx Perform Med Rec) 1 each MISCELLANE ONCE PRN PRN Reason: Consult order Sodium Chloride (0.9 % Sodium Chloride Flush 3 Ml Syringe) 3 ml IVFLUSH QSHIFT [facility] Last Admin: 06/19/22 08:35 Dose: 3 ml Documented By: LAUREN Topiramate (Topiramate 100 Mg Tablet) 200 mg G-TUBE BID [facility] Last Admin: 06/19/22 07:53 Dose: 200 mg Documented By: LAUREN Labs CBC & Chem 7: 06/19/22 06:11 06/21/22 06:53 Labs: Laboratory Results - last 24 hr 06/18/22 06/18/22 06/19/22 12:02 20:18 06:11 MCV 92.9 MCH 29.0 MCHC 31.3 RDW 16.9 H Plt Count 362 MPV 10.8 Absolute Nucleated RBC 0.000 Nucleated RBC % (auto) 0.0 Anion Gap Estim Creat Clear Calc Estimated GFR POC Glucose 140 H 111 Random Glucose Calcium Phosphorus Magnesium Total Bilirubin AST ALT Alkaline Phosphatase Total Protein Albumin 06/19/22 06/19/22 06:11 07:19 MCV MCH MCHC RDW Plt Count MPV Absolute Nucleated RBC Nucleated RBC % (auto) Anion Gap 17 Estim Creat Clear Calc 102.9 Estimated GFR > 60 POC Glucose 96 Random Glucose 102 Calcium 9.1 Phosphorus 3.8 Magnesium 2.2 Total Bilirubin 0.6 AST 20 D ALT 9 Alkaline Phosphatase 76 D Total Protein 6.8 Albumin 3.5 Procedures Date of Service Date of Service: 06/19/22 Arterial Line Size (Gauge): 16 Progress Note: A&P Assessment and plan (1) Status post colostomy: Status: Acute Assessment and Plan: transferred out of ICU much improved stoma functioning keep drains in place push PO intake OOB to chair WBC up and down - will consider repeating imaging this week looks better overall Time Spent With Patient Time: Total time spent is greater than 50% in coordination of care (as documented) at patient's floor/unit and/or counseling patient: Quality Stroke Does the patient have a stroke diagnosis?: No VTE Prior VTE?: No VTE Risk Level:: Medical - moderate - high VTE Device Contraindication: N/A - Device Ordered VTE Drug Contraindication: N/A - Med Ordered
[2022-06-19 11:26] VITALS: BP 170/79; PULSE 90; RESP 18; TEMP 37; O2SAT 96
[2022-06-19 11:27] LABS: Glucose, Whole Blood 130 mg/dL (60-115)
--- NOTE | 2022-06-19 12:31 | HO.PM.IMPN ---
Subjective Subjective Date of Service: 06/20/22 Review of Systems Follow-up ICU downgrade Resting in bed, mildly lethargic Physical Exam Vital Signs: Vital Signs: Last Vital Signs Temp 98.6 F 06/19/22 11:26 Pulse 90 06/19/22 11:26 Resp 18 06/19/22 11:26 BP 170/79 H 06/19/22 11:26 Pulse Ox 96 06/19/22 11:26 O2 Del Method 06/19/22 11:26 O2 Flow Rate 1 06/16/22 20:00 FiO2 35 06/14/22 12:00 Oxygen Flow Rate 35 06/13/22 21:00 BMI result Body Mass Index 36.1 Appearing in no acute distress lung sounds are clear to auscultation heart regular rate rhythm, clear S1, S2 positive bowel sounds, abdomen is soft, nontender neuro patient is alert x3, no focal deficits Objective Data Active Medications Duloxetine HCl (Duloxetine Hcl 60 Mg Capsule.Dr) 60 mg PO BEDTIME [facility] Gabapentin (Gabapentin 300 Mg Capsule) 300 mg PO BEDTIME [facility] Last Admin: 06/18/22 21:04 Dose: 300 mg Documented By: FRANTZ Heparin Sodium (Porcine) (Heparin Sodium,Porcine 5,000 Unit/Ml Vial) 5,000 unit SUBCUT Q8H [facility] Last Admin: 06/19/22 07:52 Dose: 5,000 unit Documented By: LAUREN Hydromorphone HCl (Hydromorphone Hcl 0.5 Mg/0.5 Ml Syringe) 0.5 mg IVPUSH Q1H PRN; Protocol PRN Reason: mild pain Last Admin: 06/18/22 21:06 Dose: 0.5 mg Documented By: FRANTZ Erythromycin Lactobionate 500 (mg/ Sodium Chloride) 100 mls @ 100 mls/hr IV Q8H [facility] Last Infusion: 06/19/22 09:52 Dose: 100 mls/hr Documented By: LAUREN Lisinopril (Lisinopril 5 Mg Tablet) 5 mg PO DAILY [facility]; Protocol Last Admin: 06/19/22 07:53 Dose: 5 mg Documented By: LAUREN Metoclopramide HCl (Metoclopramide Hcl 10 Mg/2 Ml Vial) 5 mg IVPUSH Q6H [facility] Last Admin: 06/19/22 11:21 Dose: 5 mg Documented By: LAUREN Metoprolol Tartrate (Metoprolol Tartrate 25 Mg Tablet) 75 mg NG-TUBE BID [facility]; Protocol Last Admin: 06/19/22 07:52 Dose: 75 mg Documented By: LAUREN Nystatin (Nystatin Powder 15 Gm Bottle) 1 appl TOPICAL BID [facility]; Protocol Last Admin: 06/19/22 08:34 Dose: 1 appl Documented By: LAUREN Ondansetron HCl (Ondansetron Hcl 4 Mg/2 Ml Vial) 4 mg IVPUSH Q6H PRN PRN Reason: Nausea Last Admin: 06/13/22 13:16 Dose: 4 mg Documented By: SANTOS Pharmacy Consult (Consult Rx Perform Med Rec) 1 each MISCELLANE ONCE PRN PRN Reason: Consult order Sodium Chloride (0.9 % Sodium Chloride Flush 3 Ml Syringe) 3 ml IVFLUSH QSHIFT [facility] Last Admin: 06/19/22 08:35 Dose: 3 ml Documented By: LAUREN Topiramate (Topiramate 100 Mg Tablet) 200 mg G-TUBE BID [facility] Last Admin: 06/19/22 07:53 Dose: 200 mg Documented By: LAUREN Labs CBC & Chem 7: 06/19/22 06:11 06/19/22 06:11 Labs: Laboratory Results - last 24 hr 06/18/22 06/18/22 06/19/22 12:02 20:18 06:11 MCV 92.9 MCH 29.0 MCHC 31.3 RDW 16.9 H Plt Count 362 MPV 10.8 Absolute Nucleated RBC 0.000 Nucleated RBC % (auto) 0.0 Anion Gap Estim Creat Clear Calc Estimated GFR POC Glucose 140 H 111 Random Glucose Calcium Phosphorus Magnesium Total Bilirubin AST ALT Alkaline Phosphatase Total Protein Albumin 06/19/22 06/19/22 06/19/22 06:11 07:19 11:24 MCV MCH MCHC RDW Plt Count MPV Absolute Nucleated RBC Nucleated RBC % (auto) Anion Gap 17 Estim Creat Clear Calc 102.9 Estimated GFR > 60 POC Glucose 96 130 H Random Glucose 102 Calcium 9.1 Phosphorus 3.8 Magnesium 2.2 Total Bilirubin 0.6 AST 20 D ALT 9 Alkaline Phosphatase 76 D Total Protein 6.8 Albumin 3.5 Assessment and Plan (1) Leukocytosis: Status: Acute Plan 62-year-old woman admitted on 05/18/2022 for question of colitis/Crohn's flare.? She was subsequently seen again by Dr. Peralta and had a flexible sigmoidoscopy which showed a perforation with abscess.? She was taking to the OR for exploratory laparotomy with colostomy.? She had extensive fecal soilage in the peritoneum.? Was severely septic and sent to the ICU intubated.? She had a fairly rough course of the last several weeks developing multiple intra-abdominal abscesses, fevers.? Multiple drains placed in IR.? She was treated with Flagyl and meropenem.? She was started on TPN for nutrition.? She was subsequently extubated on 06/07/2022.? She was transition to tube feeds and then today transition to.? Septic shock secondary to Perforated viscus with fecal peritonitis. Resolved Status post exploratory laparotomy with colostomy placement Treated with meropenem and Flagyl for approximately 3 weeks, antibiotics subsequently stopped Extubated 06/07/22, initially on TPN, transitioned to tube feeds now on pureed diet General surgery following, drains removed Toxic metabolic encephalopathy Secondary to septic shock from perforated viscus with intubation and infection, complicated course Resolving Now on pureed diet, Reglan and erythromycin for residuals SABINE secondary to septic shock, hypovolemia Resolved Diabetes mellitus type 2 Sliding scale, ADA diet Acute respiratory failure. Extubated 06/07/22 in ICU Tolerating room air Anemia Normocytic, no bleeding Mental health Continue duloxetine and Topamax DVT prophylaxis with heparin Attending Dr. Acuña Full code Continue hospitalization for treatment of septic shock secondary to perforated viscus with continued close monitoring, high risk for decompensation Quality Stroke Does the patient have a stroke diagnosis?: No VTE Prior VTE?: No VTE Risk Level:: Medical - moderate - high VTE Device Contraindication: N/A - Device Ordered VTE Drug Contraindication: N/A - Med Ordered
--- NOTE | 2022-06-19 14:47 | MHC.SL.SWA ---
Speech Pathologist Impression: Oropharyngeal dysphagia Risk of Aspiration Due to: Medically Fragile Hx of Recent Extubation Weak Cough Dysphasia Diet Status: Recommend upgrade to CHOPPED/ADVANCED (NDD3) diet with THIN liquids (individual sips, no straws), pills WHOLE or CRUSHED in PUREE. Moisten food w/ sauces and gravies as needed. Aspiration precautions apply. Pt requires assistance with tray set up and throughout meal, encourage self-feeding when possible. Diet order updated by TARIFF CLERK. Updated MD, RN, RD via [employer] Message. Will continue to follow. Liquid Consistency and Strategies for Safe Swallow: Liquid Intake Recommendation: Thin Liquid Intake Strategies: Small Sips No Straws Solid Food Consistency: Dietary Recommendations: Chopped/Advanced (NDD3) Additional Modifications to Solid Foods: w/ sauces/gravies Oral Medication Intake: Crushed with Puree Please contact the pharmacy regarding appropriate crushable or liquid drug formulations that are available whenever modified delivery is recommended. Compensatory Strategies and Precautions to be Taken for Safe Swallow: Sitting Upright (90 deg) No Straw Liquids from Cup Liquids from Spoon Small Bites and Sips Alternate Liquids/Solids Rate of Ingestion Change Oral Check Avoid Specific Foods Supervision While Eating and Drinking for Safe Swallow: Total Assistance (1:1) Foods to Avoid: Hard, difficult to chew solids Swallowing Recommended Treatments: Compens. Strategy Educat. Recommendation for Speech: Inpatient Speech Therapy Interface Designer Clinican/Clinical Fellow: No Supervisory Statement: I have reviewed and agree with the student/clinical fellow's documentation: N/A Speech Language Pathologist: Majo Grissom M.A., CCC-TARIFF CLERK
[2022-06-19 15:23] VITALS: BP 166/86; PULSE 113; RESP 17; TEMP 37.3; O2SAT 95
--- NOTE | 2022-06-19 16:35 | MHC.CLN ---
NUTRITION PATIENT TRANSFERRED TO [facility] [place] ON 06/18. SEEN BY CUSTOMER RECORDS DIVISION SUPERVISOR 06/19 WITH DIET ADVANCED TO NDD3, THIN LIQUIDS. FOLLOW FOR INTAKE AND DIET TOLERANCE.
[2022-06-19 17:07] LABS: Glucose, Whole Blood 149 mg/dL (60-115)
[2022-06-19 19:12] VITALS: BP 134/87; PULSE 108; RESP 17; TEMP 36.8; O2SAT 95
[2022-06-19 20:06] LABS: Glucose, Whole Blood 133 mg/dL (60-115)
[2022-06-19] MEDS: DULoxetine HCl 60 MG CAPSULE.DR PO (20:10)
[2022-06-19] MEDS: HYDROmorphone HCl 0.5 MG/0.5 ML SYRINGE IVPUSH (20:10)
[2022-06-19] MEDS: Gabapentin 300 MG CAPSULE PO (20:10)
[2022-06-19 23:12] VITALS: BP 163/84; PULSE 91; RESP 14; TEMP 36.9; O2SAT 97
[2022-06-20] VITALS (10 sets, daily range): BP systolic 117–137; BP diastolic 67–78; PULSE 85–108; RESP 14–20; TEMP 35.4–38.1; O2SAT 94–96; BMI 36.3
[2022-06-20] MEDS: Metoclopramide HCl 10 MG/2 ML VIAL 5 MG IVPUSH ×4 (01:12→17:34)
[2022-06-20] MEDS: Heparin Sodium,Porcine 5,000 UNIT/ML VIAL 5000 UNIT SUBCUT ×3 (01:12→17:34)
[2022-06-20] MEDS: HYDROmorphone HCl 0.5 MG/0.5 ML SYRINGE IVPUSH ×5 (02:01→19:38)
[2022-06-20] MEDS: 0.9 % Sodium Chloride Flush 3 ML SYRINGE IVFLUSH ×4 (02:01→19:40)
[2022-06-20 07:31] LABS: Glucose, Whole Blood 100 mg/dL (60-115)
--- NOTE | 2022-06-20 08:10 | P.PNGS_ITS ---
Subjective Subjective Date of Service: 06/20/22 <Tiffanie Villeda PA-C - Last Filed: 06/20/22 08:17> 06/20/22 <Deandre Hagan MD - Last Filed: 06/20/22 13:37> Interval history: Feels ok this morning. Denies abd pain but reports back pain from lying in bed. Has not been OOB much. <Tiffanie Villeda PA-C - Last Filed: 06/20/22 08:17> Physical Exam Vital Signs: Vital Signs: Last Vital Signs Temp 97.9 F 06/20/22 07:40 Pulse 106 H 06/20/22 07:40 Resp 20 06/20/22 07:40 BP 129/78 06/20/22 07:40 Pulse Ox 96 06/20/22 07:40 O2 Del Method 06/20/22 07:40 O2 Flow Rate 1 06/16/22 20:00 FiO2 35 06/14/22 12:00 Oxygen Flow Rate 35 06/13/22 21:00 BMI result Body Mass Index 36.3 <Tiffanie Villeda PA-C - Last Filed: 06/20/22 08:17> Const: General: comfortable, no acute distress and alert <NAVDEEP Soto Last Filed: 06/20/22 08:17> Orientation/consciousness: patient oriented x3 <NAVDEEP Soto Last Filed: 06/20/22 08:17> Resp: Effort & Inspection: normal respiratory effort <Tiffanie Villeda PA-C - Last Filed: 06/20/22 08:17> GI: Other: stoma pink, sanguineous drainage in appliance; pigtail drains on left flank continue with purulent drainage <Tiffanie Villeda PA-C - Last Filed: 06/20/22 08:17> Inspection: No distended and Yes incision (clean, small opening at superior and inferior aspects, jazmine removed) <NAVDEEP Soto Last Filed: 06/20/22 08:17> Palpation (GI): Soft to palpation and nontender <NAVDEEP Soto Last Filed: 06/20/22 08:17> Skin: General skin exam: no rashes or lesions noted <Tiffanie Villeda PA-C - Last Filed: 06/20/22 08:17> Neuro: General: patient oriented x3 <Tiffanie Villeda PA-C - Last Filed: 06/20/22 08:17> Objective Data Active Medications Dextrose (Dextrose 50 % 25 Gm/50 Ml Syringe) 25 gm IVPUSH Q15M PRN; Protocol PRN Reason: per Hypoglycemia Standing Ord. Duloxetine HCl (Duloxetine Hcl 60 Mg Capsule.Dr) 60 mg PO BEDTIME [facility] Last Admin: 06/19/22 20:10 Dose: 60 mg Documented By: SIGRID Gabapentin (Gabapentin 300 Mg Capsule) 300 mg PO BEDTIME [facility] Last Admin: 06/19/22 20:10 Dose: 300 mg Documented By: SIGRID Glucose (Glucose Gel 15 Gm Gel..Gram.) 15 gm PO Q15M PRN; Protocol PRN Reason: per Hypoglycemia Standing Ord. Heparin Sodium (Porcine) (Heparin Sodium,Porcine 5,000 Unit/Ml Vial) 5,000 unit SUBCUT Q8H [facility] Last Admin: 06/20/22 01:12 Dose: 5,000 unit Documented By: SIGRID Hydromorphone HCl (Hydromorphone Hcl 0.5 Mg/0.5 Ml Syringe) 0.5 mg IVPUSH Q1H PRN; Protocol PRN Reason: mild pain Last Admin: 06/20/22 02:01 Dose: 0.5 mg Documented By: SIGRID Erythromycin Lactobionate 500 (mg/ Sodium Chloride) 100 mls @ 100 mls/hr IV Q8H [facility] Last Infusion: 06/20/22 03:11 Dose: 0 mls/hr Documented By: SIGRID Insulin Human Lispro (Insulin Lispro 100 Unit/Ml 3 Ml Vial) 0 unit SUBCUT QIDACHS [facility]; Protocol Last Admin: 06/20/22 07:34 Dose: Not Given Documented By: SANTOS Non-Admin Reason: No Insulin Coverage Lisinopril (Lisinopril 5 Mg Tablet) 5 mg PO DAILY [facility]; Protocol Last Admin: 06/19/22 07:53 Dose: 5 mg Documented By: LAUREN Metoclopramide HCl (Metoclopramide Hcl 10 Mg/2 Ml Vial) 5 mg IVPUSH Q6H [facility] Last Admin: 06/20/22 06:15 Dose: 5 mg Documented By: SIGRID Metoprolol Tartrate (Metoprolol Tartrate 25 Mg Tablet) 75 mg NG-TUBE BID [facility]; Protocol Last Admin: 06/19/22 20:10 Dose: 75 mg Documented By: SIGRID Nystatin (Nystatin Powder 15 Gm Bottle) 1 appl TOPICAL BID [facility]; Protocol Last Admin: 06/19/22 20:24 Dose: Not Given Documented By: SIGRID Non-Admin Reason: Previously Administered Ondansetron HCl (Ondansetron Hcl 4 Mg/2 Ml Vial) 4 mg IVPUSH Q6H PRN PRN Reason: Nausea Last Admin: 06/13/22 13:16 Dose: 4 mg Documented By: SANTOS Pharmacy Consult (Consult Rx Perform Med Rec) 1 each MISCELLANE ONCE PRN PRN Reason: Consult order Sodium Chloride (0.9 % Sodium Chloride Flush 3 Ml Syringe) 3 ml IVFLUSH QSHIFT [facility] Last Admin: 06/20/22 02:01 Dose: 3 ml Documented By: SIGRID Topiramate (Topiramate 100 Mg Tablet) 200 mg G-TUBE BID [facility] Last Admin: 06/19/22 20:10 Dose: 200 mg Documented By: SIGRID <Tiffanie Villeda PA-C - Last Filed: 06/20/22 08:17> Labs CBC & Chem 7: : 06/19/22 06:11 06/19/22 06:11 <Tiffanie Villeda PA-C - Last Filed: 06/20/22 08:17> Labs: Laboratory Results - last 24 hr 06/19/22 06/19/22 06/19/22 11:24 16:11 19:49 POC Glucose 130 H 149 H 133 H 06/20/22 07:25 POC Glucose 100 <Tiffanie Villeda PA-C - Last Filed: 06/20/22 08:17> Microbiology Microbiology Results: Microbiology 06/02/22 Unknown Fungal Identification - Preliminary Abscess Intra-abdominal Verónica dubliniensis <Tiffanie Villeda PA-C - Last Filed: 06/20/22 08:17> Procedures Date of Service Date of Service: 06/20/22 <Tiffanie Villeda PA-C - Last Filed: 06/20/22 08:17> Arterial Line Size (Gauge): 16 <Tiffanie Villeda PA-C - Last Filed: 06/20/22 08:17> Progress Note: A&P Assessment and plan (1) Status post colostomy: Status: Acute <Tiffanie Villeda PA-C - Last Filed: 06/20/22 08:17> Assessment and Plan: Patient more alert today no fever stoma function jazmine removed abdomen soft Push p.o. intake out of bed to chair follow-up CT scan to check for need for additional drains improving seen and examined - agree with RUSSELL Villeda discussed with family at bedside <Deandre Hagan MD - Last Filed: 06/20/22 13:37> Assessment and Plan: Status post sigmoid resection, colostomy Stoma viable appearing and functioning, continue care, appliance changed 06/19 Novelty removed, incision clean; small openings at superior/inferior aspect with serous drainage [address] which continue with purulent drainage Leukocytosis persists- recommend repeating CT scan abd/pelvis with IV contrast to assess need for possible further drainage On regular diet, diet as tolerated following scan OOB, continue PT <Tiffanie Villeda PA-C - Last Filed: 06/20/22 08:17> Time Spent With Patient Time: Total time spent is greater than 50% in coordination of care (as documented) at patient's floor/unit and/or counseling patient: <Tiffanie Villeda PA-C - Last Filed: 06/20/22 08:17> Quality Stroke Does the patient have a stroke diagnosis?: No <Tiffanie Villeda PA-C - Last Filed: 06/20/22 08:17> VTE Prior VTE?: No <Tiffanie Villeda PA-C - Last Filed: 06/20/22 08:17> VTE Risk Level:: Medical - moderate - high <NAVDEEP Soto Last Filed: 06/20/22 08:17> VTE Device Contraindication: N/A - Device Ordered <Tiffanie Villeda PA-C - Last Filed: 06/20/22 08:17> VTE Drug Contraindication: N/A - Med Ordered <Tiffanie Villeda PA-C - Last Filed: 06/20/22 08:17>
[2022-06-20] MEDS: Metoprolol Tartrate 25 MG TABLET 75 MG NG-TUBE ×2 (09:24→19:38)
[2022-06-20] MEDS: Topiramate 100 MG TABLET 200 MG G-TUBE ×2 (09:24→19:38)
[2022-06-20] MEDS: lisinopriL 5 MG TABLET PO (09:25)
[2022-06-20] MEDS: Nystatin Powder 15 GM BOTTLE 1 APPL TOPICAL (09:31)
[2022-06-20 11:11] LABS: Glucose, Whole Blood 128 mg/dL (60-115)
--- NOTE | 2022-06-20 12:11 | P.CDIC_ITS ---
CDI Concurrent Query Documentation Clarification: PHYSICIAN'S DOCUMENTATION REQUEST Date of Query: 06/20/22 1211 Patient Name: Ju Hankins Admit Date: 05/18/22 Dear Doctor, A review of the medical record indicates additional documentation may be needed. Please review below and update the documentation accordingly. Clinical Indicators: Is there a diagnosis that correlates with these lab findings below: Risk Factors/Clinical Indicators/Treatments LABS ON 06/18: -pH: 7.51 -pCO2: 23 -pO2: 40 -HCO3: 19 Based on the above, could you clarify in the Progress Notes the appropriate diagnosis, if significant, that supports the above abnormalities and additional evaluation, monitoring, and/or treatment rendered: * Alkalosis (please specify: i.e metabolic, respiratory, etc.) * Labs indicate a diagnosis of (please specify) * Other (please specify) * Unable to determine Use of terms such as suspected, likely, concern for, or probable (associated with a specific diagnosis that is being evaluated, monitored, or treated as if it exists) are acceptable and can be coded in the inpatient setting, when documented at the time of discharge. Thank you, rBynn An MS, RN, CCRN Extension: [phone] Please use your independent medical judgment in providing your response. THIS QUERY IS PART OF THE PERMANENT MEDICAL RECORD Other Diagnosis: no
--- NOTE | 2022-06-20 12:46 | P.PNIM_ITS ---
Subjective Subjective Date of Service: 06/20/22 Review of Systems Follow-up ICU downgrade Resting in bed, mildly lethargic Physical Exam Vital Signs: Vital Signs: Last Vital Signs Temp 98.9 F 06/20/22 11:16 Pulse 86 06/20/22 11:16 Resp 20 06/20/22 11:16 BP 132/69 06/20/22 11:16 Pulse Ox 95 06/20/22 11:16 O2 Del Method 06/20/22 11:16 O2 Flow Rate 1 06/16/22 20:00 FiO2 35 06/14/22 12:00 Oxygen Flow Rate 35 06/13/22 21:00 BMI result Body Mass Index 36.3 Appearing in no acute distress lung sounds are clear to auscultation heart regular rate rhythm, clear S1, S2 positive bowel sounds, abdomen is soft, nontender. colostomy intact, stool output neuro patient is alert x3, no focal deficits Objective Data Active Medications Dextrose (Dextrose 50 % 25 Gm/50 Ml Syringe) 25 gm IVPUSH Q15M PRN; Protocol PRN Reason: per Hypoglycemia Standing Ord. Duloxetine HCl (Duloxetine Hcl 60 Mg Capsule.Dr) 60 mg PO BEDTIME [facility] Last Admin: 06/19/22 20:10 Dose: 60 mg Documented By: SIGRID Gabapentin (Gabapentin 300 Mg Capsule) 300 mg PO BEDTIME [facility] Last Admin: 06/19/22 20:10 Dose: 300 mg Documented By: SIGRID Glucose (Glucose Gel 15 Gm Gel..Gram.) 15 gm PO Q15M PRN; Protocol PRN Reason: per Hypoglycemia Standing Ord. Heparin Sodium (Porcine) (Heparin Sodium,Porcine 5,000 Unit/Ml Vial) 5,000 unit SUBCUT Q8H [facility] Last Admin: 06/20/22 09:23 Dose: 5,000 unit Documented By: SANTOS Hydromorphone HCl (Hydromorphone Hcl 0.5 Mg/0.5 Ml Syringe) 0.5 mg IVPUSH Q1H PRN; Protocol PRN Reason: mild pain Last Admin: 06/20/22 09:24 Dose: 0.5 mg Documented By: SANTOS Erythromycin Lactobionate 500 (mg/ Sodium Chloride) 100 mls @ 100 mls/hr IV Q8H [facility] Last Infusion: 06/20/22 11:10 Dose: 0 mls/hr Documented By: SANTOS Insulin Human Lispro (Insulin Lispro 100 Unit/Ml 3 Ml Vial) 0 unit SUBCUT QIDACHS [facility]; Protocol Last Admin: 06/20/22 11:18 Dose: Not Given Documented By: SANTOS Non-Admin Reason: No Insulin Coverage Lisinopril (Lisinopril 5 Mg Tablet) 5 mg PO DAILY [facility]; Protocol Last Admin: 06/20/22 09:25 Dose: 5 mg Documented By: SANTOS Metoclopramide HCl (Metoclopramide Hcl 10 Mg/2 Ml Vial) 5 mg IVPUSH Q6H [facility] Last Admin: 06/20/22 11:37 Dose: 5 mg Documented By: SANTOS Metoprolol Tartrate (Metoprolol Tartrate 25 Mg Tablet) 75 mg NG-TUBE BID [facility]; Protocol Last Admin: 06/20/22 09:24 Dose: 75 mg Documented By: SANTOS Nystatin (Nystatin Powder 15 Gm Bottle) 1 appl TOPICAL BID [facility]; Protocol Last Admin: 06/20/22 09:31 Dose: 1 appl Documented By: SANTOS Ondansetron HCl (Ondansetron Hcl 4 Mg/2 Ml Vial) 4 mg IVPUSH Q6H PRN PRN Reason: Nausea Last Admin: 06/13/22 13:16 Dose: 4 mg Documented By: SANTOS Pharmacy Consult (Consult Rx Perform Med Rec) 1 each MISCELLANE ONCE PRN PRN Reason: Consult order Sodium Chloride (0.9 % Sodium Chloride Flush 3 Ml Syringe) 3 ml IVFLUSH QSHIFT [facility] Last Admin: 06/20/22 09:24 Dose: 3 ml Documented By: SANTOS Topiramate (Topiramate 100 Mg Tablet) 200 mg G-TUBE BID [facility] Last Admin: 06/20/22 09:24 Dose: 200 mg Documented By: SANTOS Labs CBC & Chem 7: 06/19/22 06:11 06/19/22 06:11 Labs: Laboratory Results - last 24 hr 06/19/22 06/19/22 06/20/22 16:11 19:49 07:25 POC Glucose 149 H 133 H 100 06/20/22 10:54 POC Glucose 128 H Microbiology Microbiology Results: Microbiology 06/02/22 Unknown Fungal Identification - Preliminary Abscess Intra-abdominal Verónica dubliniensis Assessment and Plan (1) Leukocytosis: Status: Acute Plan 62-year-old woman admitted on 05/18/2022 for question of colitis/Crohn's flare.? She was subsequently seen again by Dr. Peralta and had a flexible sigmoidoscopy which showed a perforation with abscess.? She was taking to the OR for exploratory laparotomy with colostomy.? She had extensive fecal soilage in the peritoneum.? Was severely septic and sent to the ICU intubated.? She had a fairly rough course of the last several weeks developing multiple intra- abdominal abscesses, fevers.? Multiple drains placed in IR.? She was treated with Flagyl and meropenem.? She was started on TPN for nutrition.? She was subsequently extubated on 06/07/2022.? She was transition to tube feeds and then today transition to diet.? Septic shock secondary to Perforated viscus with fecal peritonitis. Resolved Status post exploratory laparotomy with colostomy placement Treated with meropenem and Flagyl for approximately 3 weeks, antibiotics subsequently stopped Extubated 06/07/22, initially on TPN, transitioned to tube feeds now on pureed diet General surgery following, drains removed Toxic metabolic encephalopathy Secondary to septic shock from perforated viscus with intubation and infection, complicated course Resolving Now on pureed diet, Reglan and erythromycin for residuals SABINE secondary to septic shock, hypovolemia Resolved Diabetes mellitus type 2 Sliding scale, ADA diet Acute respiratory failure. Extubated 06/07/22 in ICU Tolerating room air Anemia Normocytic, no bleeding Mental health Continue duloxetine and Topamax DVT prophylaxis with heparin Attending Dr. Acuña Full code Disposition. still pretty weak and lethargic, Will need extensive rehab once medically cleared Continue hospitalization for treatment of septic shock secondary to perforated viscus with continued close monitoring, high risk for decompensation Quality Stroke Does the patient have a stroke diagnosis?: No VTE Prior VTE?: No VTE Risk Level:: Medical - moderate - high VTE Device Contraindication: N/A - Device Ordered VTE Drug Contraindication: N/A - Med Ordered
--- NOTE | 2022-06-20 13:49 | PC.NURSE ---
Report received from overnight RN, project manager entertainment and media per NOV. Pt vague and drowsy this morning. C/o pain in back, and abd. pain managed with PRN medication with good relief per pt. Pt incont, repositioned q2, aspiration precautions in place. Call arteaga within reach, safety precautions taken.
[2022-06-20] MEDS: Dextrose 5 % and 0.45 % NaCl 1,000 ML 60 ML IVCONT (14:15)
[2022-06-20 14:40] LABS: Anion Gap 14 (12-20); Blood Urea Nitrogen 24 mg/dL (9-16); Carbon Dioxide 22 mmol/L (22-29); Chloride 105 mmol/L (96-108); Creatinine Clr Calc Pharmacy 106.7; Estimated Glomerular Filt Rate > 60; Glucose Random 109 mg/dL (60-115); Potassium 3.8 mmol/L (3.3-5.1); Sodium 137 mmol/L (135-145)
[2022-06-20 14:51] LABS: Calcium 8.7 mg/dL (8.4-10.2)
--- NOTE | 2022-06-20 15:29 | PM.GIPN ---
Subjective Subjective Date of Service: 06/20/22 Interval History: Hungry, wants to eat Critical Care Time (minutes): 0 Physical Exam Vital Signs: Vital Signs: Last Vital Signs Temp 99.1 F 06/20/22 15: Pulse 100 06/20/22 15:22 Resp 16 06/20/22 15:22 BP 130/67 06/20/22 15:22 Pulse Ox 95 06/20/22 15:22 O2 Del Method 06/20/22 15:22 O2 Flow Rate 1 06/16/22 20:00 FiO2 35 06/14/22 12:00 Oxygen Flow Rate 35 06/13/22 21:00 BMI result Body Mass Index 36.3 GI: Other: abdomen is soft Objective Data Labs CBC & Chem 7: 06/19/22 06:11 06/21/22 06:53 Procedures Date of Service Date of Service: 06/20/22 Arterial Line Size (Gauge): 16 Progress Note: A&P Assessment and plan (1) Perforated viscus: Status: Acute Plan start diet as planned. continue supportive care. will need pt Time Spent With Patient Time: Total time spent is greater than 50% in coordination of care (as documented) at patient's floor/unit and/or counseling patient: Quality Stroke Does the patient have a stroke diagnosis?: No VTE Prior VTE?: No VTE Risk Level:: Medical - moderate - high VTE Device Contraindication: N/A - Device Ordered VTE Drug Contraindication: N/A - Med Ordered
[2022-06-20] MEDS: DULoxetine HCl 60 MG CAPSULE.DR PO (19:38)
[2022-06-20] MEDS: Gabapentin 300 MG CAPSULE PO (19:38)
[2022-06-21] MEDS: Metoclopramide HCl 10 MG/2 ML VIAL 5 MG IVPUSH ×4 (00:19→17:06)
[2022-06-21] MEDS: Heparin Sodium,Porcine 5,000 UNIT/ML VIAL 5000 UNIT SUBCUT ×2 (00:20→08:23)
[2022-06-21 03:14] VITALS: BP 126/61; PULSE 96; RESP 18; TEMP 37.6; O2SAT 95
[2022-06-21 06:00] VITALS: BMI 35.2
[2022-06-21] MEDS: HYDROmorphone HCl 0.5 MG/0.5 ML SYRINGE IVPUSH ×5 (06:14→21:26)
[2022-06-21] MEDS: Dextrose 5 % and 0.45 % NaCl 1,000 ML 60 ML IVCONT (06:18)
[2022-06-21 07:12] LABS: VBG Base Excess -5.2 mmol/L; VBG HCO3 16 mmol/L (22-26); VBG pCO2 21 mmHg; VBG pH 7.48 (7.32-7.43); VBG pO2 176 mmHg
[2022-06-21 07:12] LABS: Venous Blood Gas Refer to POC result
[2022-06-21 07:21] VITALS: BP 129/65; PULSE 108; RESP 18; TEMP 37.3; O2SAT 95
[2022-06-21 07:33] LABS: Anion Gap 13 (12-20); Blood Urea Nitrogen 18 mg/dL (9-16); Calcium 8.3 mg/dL (8.4-10.2); Carbon Dioxide 20 mmol/L (22-29); Chloride 105 mmol/L (96-108); Creatinine Clr Calc Pharmacy 106.8; Estimated Glomerular Filt Rate > 60; Glucose Random 119 mg/dL (60-115); Potassium 3.4 mmol/L (3.3-5.1); Sodium 135 mmol/L (135-145)
[2022-06-21 07:35] LABS: Alkaline Phosphatase 78 U/L (39-117); Aspartate Amino Transferase 19 U/L (5-31); Bilirubin Direct 0.4 mg/dL (0.0-0.5); Bilirubin Total 0.7 mg/dL (0.0-1.0); Total Protein 5.8 g/dL (6.5-8.0)
[2022-06-21 07:51] LABS: Alanine Aminotransferase 17 U/L (0-31)
[2022-06-21] MEDS: 0.9 % Sodium Chloride Flush 3 ML SYRINGE IVFLUSH ×3 (08:32→21:26)
--- NOTE | 2022-06-21 09:01 | PM.PNGS ---
Subjective Subjective Date of Service: 06/22/22 Interval history: No new events overnight Oral intake still poor Stoma functioning Physical Exam Vital Signs: Vital Signs: Last Vital Signs Temp 99.1 F 06/21/22 07:21 Pulse 108 H 06/21/22 07:21 Resp 18 06/21/22 07:21 BP 129/65 06/21/22 07:21 Pulse Ox 95 06/21/22 07:21 O2 Del Method 06/21/22 07:21 O2 Flow Rate 1 06/16/22 20:00 FiO2 35 06/14/22 12:00 Oxygen Flow Rate 35 06/13/22 21:00 BMI result Body Mass Index 35.2 Const: General: comfortable and no acute distress Resp: Other: Mild shortness of breath Cardio: Rhythm: regular rhythm GI: Other: Soft, no guarding rebound, incision well healed, stoma viable, with, and drains x2 in place on the left side to the pelvis, both appearing splint, volume of output minimal Objective Data Active Medications Dextrose (Dextrose 50 % 25 Gm/50 Ml Syringe) 25 gm IVPUSH Q15M PRN; Protocol PRN Reason: per Hypoglycemia Standing Ord. Duloxetine HCl (Duloxetine Hcl 60 Mg Capsule.Dr) 60 mg PO BEDTIME [facility] Last Admin: 06/20/22 19:38 Dose: 60 mg Documented By: HECTOR Gabapentin (Gabapentin 300 Mg Capsule) 300 mg PO BEDTIME [facility] Last Admin: 06/20/22 19:38 Dose: 300 mg Documented By: HECTOR Glucose (Glucose Gel 15 Gm Gel..Gram.) 15 gm PO Q15M PRN; Protocol PRN Reason: per Hypoglycemia Standing Ord. Heparin Sodium (Porcine) (Heparin Sodium,Porcine 5,000 Unit/Ml Vial) 5,000 unit SUBCUT Q8H [facility] Last Admin: 06/21/22 08:23 Dose: 5,000 unit Documented By: KAMILA Hydromorphone HCl (Hydromorphone Hcl 0.5 Mg/0.5 Ml Syringe) 0.5 mg IVPUSH Q1H PRN; Protocol PRN Reason: mild pain Last Admin: 06/21/22 06:14 Dose: 0.5 mg Documented By: JONATHAN Erythromycin Lactobionate 500 (mg/ Sodium Chloride) 100 mls @ 100 mls/hr IV Q8H [facility] Last Infusion: 06/21/22 01:23 Dose: 0 mls/hr Documented By: JONATHAN Dextrose/Sodium Chloride (D51/2ns) 1,000 mls @ 60 mls/hr IVCONT .[id number] [facility] Last Admin: 06/21/22 06:18 Dose: 60 mls/hr Documented By: JONATHAN Insulin Human Lispro (Insulin Lispro 100 Unit/Ml 3 Ml Vial) 0 unit SUBCUT QIDACHS [facility]; Protocol Last Admin: 06/21/22 08:32 Dose: Not Given Documented By: KAMILA Non-Admin Reason: Medication Discontinued Lisinopril (Lisinopril 5 Mg Tablet) 5 mg PO DAILY [facility]; Protocol Last Admin: 06/20/22 09:25 Dose: 5 mg Documented By: SANTOS Metoclopramide HCl (Metoclopramide Hcl 10 Mg/2 Ml Vial) 5 mg IVPUSH Q6H [facility] Last Admin: 06/21/22 05:57 Dose: 5 mg Documented By: JONATHAN Metoprolol Tartrate (Metoprolol Tartrate 25 Mg Tablet) 75 mg NG-TUBE BID [facility]; Protocol Last Admin: 06/20/22 19:38 Dose: 75 mg Documented By: HECTOR Nystatin (Nystatin Powder 15 Gm Bottle) 1 appl TOPICAL BID [facility]; Protocol Last Admin: 06/20/22 21:00 Dose: Not Given Documented By: HECTOR Non-Admin Reason: Patient Refused Ondansetron HCl (Ondansetron Hcl 4 Mg/2 Ml Vial) 4 mg IVPUSH Q6H PRN PRN Reason: Nausea Last Admin: 06/13/22 13:16 Dose: 4 mg Documented By: SANTOS Pharmacy Consult (Consult Rx Perform Med Rec) 1 each MISCELLANE ONCE PRN PRN Reason: Consult order Sodium Chloride (0.9 % Sodium Chloride Flush 3 Ml Syringe) 3 ml IVFLUSH QSHIFT [facility] Last Admin: 06/21/22 08:32 Dose: 3 ml Documented By: KAMILA Topiramate (Topiramate 100 Mg Tablet) 200 mg G-TUBE BID [facility] Last Admin: 06/20/22 19:38 Dose: 200 mg Documented By: HECTOR Labs CBC & Chem 7: 06/19/22 06:11 06/21/22 06:53 Labs: Laboratory Results - last 24 hr 06/20/22 06/20/22 06/21/22 10:54 14:13 06:53 VBG pH VBG pCO2 VBG pO2 VBG HCO3 VBG O2 Saturation VBG Base Excess Anion Gap 14 13 Estim Creat Clear Calc 106.7 106.8 Estimated GFR > 60 > 60 POC Glucose 128 H Random Glucose 109 119 H Calcium 8.7 8.3 L Total Bilirubin Direct Bilirubin AST ALT Alkaline Phosphatase Total Protein Albumin 06/21/22 06/21/22 06:53 06:57 VBG pH 7.48 H VBG pCO2 21 VBG pO2 176 VBG HCO3 16 L VBG O2 Saturation 100.0 VBG Base Excess -5.2 Anion Gap Estim Creat Clear Calc Estimated GFR POC Glucose Random Glucose Calcium Total Bilirubin 0.7 Direct Bilirubin 0.4 AST 19 ALT 17 Alkaline Phosphatase 78 Total Protein 5.8 L Albumin 3.0 L Procedures Date of Service Date of Service: 06/21/22 Arterial Line Size (Gauge): 16 Progress Note: A&P Assessment and plan (1) Status post colostomy: Status: Acute Assessment and Plan: Follow-up CT scan to determine if she needs additional drains Push p.o. intake Out of bed to chair and physical therapy Much improved over the past 2-3 weeks Family updated and I have discussed the plan above Time Spent With Patient Time: Total time spent is greater than 50% in coordination of care (as documented) at patient's floor/unit and/or counseling patient: Quality Stroke Does the patient have a stroke diagnosis?: No VTE Prior VTE?: No VTE Risk Level:: Medical - moderate - high VTE Device Contraindication: N/A - Device Ordered VTE Drug Contraindication: N/A - Med Ordered
[2022-06-21] MEDS: Topiramate 100 MG TABLET 200 MG G-TUBE ×2 (09:17→21:26)
[2022-06-21] MEDS: Metoprolol Tartrate 25 MG TABLET 75 MG NG-TUBE ×2 (09:18→21:26)
[2022-06-21] MEDS: lisinopriL 5 MG TABLET PO (09:18)
--- NOTE | 2022-06-21 09:56 | MHC.SL.SWA ---
Speech Pathologist Impression: Risk of Aspiration Due to: Medically Fragile Hx of Recent Extubation Weak Cough Dysphasia Diet Status: Recommend continue on Chopped/Advanced with THIN liquids, pills crushed in puree. Pt requires assistance with tray set up and throughout meal, encourage self-feeding when possible. Liquid Consistency and Strategies for Safe Swallow: Liquid Intake Recommendation: Thin Liquid Intake Strategies: Small Sips No Straws Solid Food Consistency: Dietary Recommendations: Chopped/Advanced (NDD3) Additional Modifications to Solid Foods: Oral Medication Intake: Crushed with Puree Please contact the pharmacy regarding appropriate crushable or liquid drug formulations that are available whenever modified delivery is recommended. Compensatory Strategies and Precautions to be Taken for Safe Swallow: Sitting Upright (90 deg) No Straw Liquids from Cup Liquids from Spoon Small Bites and Sips Alternate Liquids/Solids Rate of Ingestion Change Oral Check Avoid Specific Foods Supervision While Eating and Drinking for Safe Swallow: Total Assistance (1:1) Foods to Avoid: Hard, difficult to chew solids Swallowing Recommended Treatments: Compens. Strategy Educat. Recommendation for Speech: Inpatient Speech Therapy Comment: Pt seen this morning with breakfast tray present. Patient was observed taking bites of yogurt from spoon, independently maneuvering spoon to feed self with some instability. Patient took small bites, produced a mildly prolonged oral phase followed by timely swallow with mildly reduced laryngeal elevation. Pt took sip of orange juice with straw, taking small sip and producing timely swallow, no clinical signs of aspiration. Patient reported that she did not find the chopped pancakes appealing, and was also not pleased with the meal that came last night and ate very little. Patient is in on Chopped/Advanced with THIN liquids which is appropriate given tendency to fatigue when eating and difficulty with maneuvering/managing food with cutlery. Recommend continue on this diet, no change. Frequency/Duration: M-F Date Range for Service Req: Timeline to reassess: Chief Orthoptist Clinican/Clinical Fellow: No Supervisory Statement: I have reviewed and agree with the student/clinical fellow's documentation: N/A Speech Language Pathologist: Evette Talbert M.A., CCC-WATCH TRAIN INSPECTOR
--- NOTE | 2022-06-21 10:06 | MHC.SLORD ---
Addendum entered and electronically signed by Majo Grissom MA, CCC-FIRST AID TEACHER 06/21/22 11:15: D.S. Original Note: Speech Language Pathology Order Status: FIRST AID TEACHER checked in w/ RN. Per RN, pt is temporarily NPO for procedure today at unspecified time. Will check in later today if available and appropriate for dysphagia tx.
[2022-06-21] MEDS: iohexoL 350 MG/ML 100 ML INFUS..BTL IV (11:43)
[2022-06-21 11:45] VITALS: BP 102/56; PULSE 92; RESP 20; TEMP 37; O2SAT 93
--- NOTE | 2022-06-21 14:38 | PM.GIPN ---
Subjective Subjective Date of Service: 06/21/22 Interval History: no complaints of pain Critical Care Time (minutes): 0 Physical Exam Vital Signs: Vital Signs: Last Vital Signs Temp 98.6 F 06/21/22 11:45 Pulse 92 06/21/22 11:45 Resp 20 06/21/22 11:45 BP 102/56 L 06/21/22 11:45 Pulse Ox 93 06/21/22 11:45 O2 Del Method 06/21/22 11:45 O2 Flow Rate 1 06/16/22 20:00 FiO2 35 06/14/22 12:00 BMI result Body Mass Index 35.2 Const: Other: comfortable GI: Other: unchanged Objective Data Labs CBC & Chem 7: 06/19/22 06:11 06/21/22 06:53 Labs: Laboratory Results - last 24 hr 06/20/22 06/21/22 06/21/22 14:13 06:53 06:53 VBG pH VBG pCO2 VBG pO2 VBG HCO3 VBG O2 Saturation VBG Base Excess Sodium 137 135 Potassium 3.8 3.4 Chloride 105 105 Carbon Dioxide 22 20 L Anion Gap 14 13 BUN 24 H 18 H Creatinine 0.60 0.59 Estim Creat Clear Calc 106.7 106.8 Estimated GFR > 60 > 60 Random Glucose 109 119 H Calcium 8.7 8.3 L Total Bilirubin 0.7 Direct Bilirubin 0.4 AST 19 ALT 17 Alkaline Phosphatase 78 Total Protein 5.8 L Albumin 3.0 L 06/21/22 06:57 VBG pH 7.48 H VBG pCO2 21 VBG pO2 176 VBG HCO3 16 L VBG O2 Saturation 100.0 VBG Base Excess -5.2 Sodium Potassium Chloride Carbon Dioxide Anion Gap BUN Creatinine Estim Creat Clear Calc Estimated GFR Random Glucose Calcium Total Bilirubin Direct Bilirubin AST ALT Alkaline Phosphatase Total Protein Albumin Microbiology Microbiology Results: Microbiology 06/02/22 Unknown Abscess Intra-abdominal Fungal Identification - Preliminary Verónica dubliniensis 06/03/22 15:28 Blood - Subclavian Blood Culture - Final No growth after 5 days. 06/03/22 06:15 Blood - Venous Blood Culture - Final No growth after 5 days. 06/03/22 06:15 Blood - Venous Blood Culture - Final No growth after 5 days. 06/02/22 Unknown Peritoneal Fluid Gram Stain - Final 06/02/22 Unknown Peritoneal Fluid Routine Culture - Final Verónica albicans 06/02/22 Unknown Peritoneal Fluid Anaerobic Culture - Final 05/29/22 15:14 Blood - Venous Blood Culture - Final No growth after 5 days. 05/29/22 15:13 Blood - Venous Blood Culture - Final No growth after 5 days. 05/29/22 05:14 Blood - Venous Blood Culture - Final No growth after 5 days. 05/29/22 05:14 Blood - Venous Blood Culture - Final No growth after 5 days. 06/02/22 Unknown Abscess Intra-abdominal Gram Stain - Final 06/02/22 Unknown Abscess Intra-abdominal Routine Culture - Final 06/02/22 Unknown Abscess Intra-abdominal Anaerobic Culture - Final 06/02/22 Unknown Abscess Intra-abdominal Gram Stain - Final 06/02/22 Unknown Abscess Intra-abdominal Routine Culture - Final 05/28/22 Unknown Peritoneal Fluid Gram Stain - Final 05/28/22 Unknown Peritoneal Fluid Anaerobic Culture - Final 05/28/22 Unknown Peritoneal Fluid Body Fluid Culture - Final Verónica dubliniensis 05/29/22 15:05 Sputum - Suctioned Gram Stain - Final 05/29/22 15:05 Sputum - Suctioned Sputum Culture - Final Verónica dubliniensis 05/28/22 16:47 Sputum - Suctioned Gram Stain - Final 05/28/22 16:47 Sputum - Suctioned Sputum Culture - Final Verónica albicans 05/23/22 Unknown Peritoneal Fluid Gram Stain - Final 05/23/22 Unknown Peritoneal Fluid Routine Culture - Final Escherichia coli 05/23/22 Unknown Peritoneal Fluid Anaerobic Culture - Final Clostridium perfringens Bacteroides thetaiotaomicron 05/19/22 08:49 Blood - Venous Blood Culture - Final No growth after 5 days. 05/19/22 08:49 Blood - Venous Blood Culture - Final No growth after 5 days. Procedures Date of Service Date of Service: 06/21/22 Arterial Line Size (Gauge): 16 Progress Note: A&P Assessment and plan (1) Perforated viscus: Status: Acute Assessment and Plan: ct scan pending from this am continue present management Time Spent With Patient Time: Total time spent is greater than 50% in coordination of care (as documented) at patient's floor/unit and/or counseling patient: Quality Stroke Does the patient have a stroke diagnosis?: No VTE Prior VTE?: No VTE Risk Level:: Medical - moderate - high VTE Device Contraindication: N/A - Device Ordered VTE Drug Contraindication: N/A - Med Ordered
--- NOTE | 2022-06-21 15:05 | MHC.CLN ---
F/U PO INTAKE SIPS/BITES PER FAMILY MEMBER DIET RX: CHOPPED-APPROPRIATE ORDER TO DELIVERY SUPERVISOR FOLLOWING FOR APPROPRIATE DIET CONSISTENCY FOOD PREFERENCES RECORDED AND SENT TO [facility] PT AVOIDS CRUCIFEROUS VEGETABLES R/T CROHN'S DZ PT RECEPTIVE TO DRINKING ENSURE VANILLA FLAVOR TID AND MAGIC CUP TRIAL TO INCREASE KCALS ENSURE SUPP TO PROVIDE 1050KCALS, 60G PROTEIN SPOKE WITH FAMILY MEMBERS AND ANSWERED QUESTIONS REGARDING FOOD AND INTAKE MONITOR PO INTAKE CLOSELY
[2022-06-21 15:24] VITALS: BP 128/63; PULSE 99; RESP 18; TEMP 37.3; O2SAT 93
--- NOTE | 2022-06-21 15:36 | MHC.CM.PN ---
Female 62 DX Abdominal Pain DP STR via BLS. No discharge today per MD rounds. A CT with contrast is needed; but the patient has an allergy to the IV contrast. CM will follow.
--- NOTE | 2022-06-21 15:54 | ECG_ITS ---
Test Reason : cp Blood Pressure : / mmHG Vent. Rate : 099 BPM Atrial Rate : 099 BPM P-R Int : 128 ms QRS Dur : 074 ms QT Int : 368 ms P-R-T Axes : 028 001 017 degrees QTc Int : 472 ms Normal sinus rhythm Cannot rule out Anterior infarct (cited on or before 18-MAY-2022) Abnormal ECG When compared with ECG of 18-MAY-2022 20:37, No significant change was found Referred By: Saleem Hurtado Electronically Signed By:SHARMILA SOLARES MD
--- NOTE | 2022-06-21 16:03 | HO.PM.IMPN ---
Subjective Subjective Date of Service: 06/21/22 Interval History: Patient complaining of on and off belly pain, shakiness and chills at night time, no acute issues overnight, denies nausea vomiting, stable colostomy output. 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 Neck no JVD. CVS regular rate rhythm, Respiratory lungs clear to auscultation, no respiratory distress, no wheeze, no rhonchi. Gastrointestinal abdomen soft, nontender, bowel sounds audible, stoma functioning 2 drains on left side with minimal drainage. Extremities no edema. Neuro nonfocal Skin no rash Psych appropriate affect Objective Data Active Medications Dextrose (Dextrose 50 % 25 Gm/50 Ml Syringe) 25 gm IVPUSH Q15M PRN; Protocol PRN Reason: per Hypoglycemia Standing Ord. Duloxetine HCl (Duloxetine Hcl 60 Mg Capsule.) 60 mg PO BEDTIME [facility] Last Admin: 06/20/22 19:38 Dose: 60 mg Documented By: HECTOR Gabapentin (Gabapentin 300 Mg Capsule) 300 mg PO BEDTIME [facility] Last Admin: 06/20/22 19:38 Dose: 300 mg Documented By: HECTOR Glucose (Glucose Gel 15 Gm Gel..Gram.) 15 gm PO Q15M PRN; Protocol PRN Reason: per Hypoglycemia Standing Ord. Heparin Sodium (Porcine) (Heparin Sodium,Porcine 5,000 Unit/Ml Vial) 5,000 unit SUBCUT Q8H [facility] Last Admin: 06/21/22 08:23 Dose: 5,000 unit Documented By: KAMILA Hydromorphone HCl (Hydromorphone Hcl 0.5 Mg/0.5 Ml Syringe) 0.5 mg IVPUSH Q1H PRN; Protocol PRN Reason: mild pain Last Admin: 06/21/22 13:16 Dose: 0.5 mg Documented By: KAMILA Erythromycin Lactobionate 500 (mg/ Sodium Chloride) 100 mls @ 100 mls/hr IV Q8H [facility] Last Infusion: 06/21/22 11:12 Dose: 0 mls/hr Documented By: KAMILA Dextrose/Sodium Chloride (D51/2ns) 1,000 mls @ 60 mls/hr IVCONT .[id number] [facility] Last Admin: 06/21/22 06:18 Dose: 60 mls/hr Documented By: JONATHAN Insulin Human Lispro (Insulin Lispro 100 Unit/Ml 3 Ml Vial) 0 unit SUBCUT QIDACHS [facility]; Protocol Last Admin: 06/21/22 13:10 Dose: Not Given Documented By: KAMILA Non-Admin Reason: Medication Discontinued Lisinopril (Lisinopril 5 Mg Tablet) 5 mg PO DAILY [facility]; Protocol Last Admin: 06/21/22 09:18 Dose: 5 mg Documented By: KAMILA Metoclopramide HCl (Metoclopramide Hcl 10 Mg/2 Ml Vial) 5 mg IVPUSH Q6H [facility] Last Admin: 06/21/22 13:11 Dose: 5 mg Documented By: KAMILA Metoprolol Tartrate (Metoprolol Tartrate 25 Mg Tablet) 75 mg NG-TUBE BID [facility]; Protocol Last Admin: 06/21/22 09:18 Dose: 75 mg Documented By: KAMILA Nystatin (Nystatin Powder 15 Gm Bottle) 1 appl TOPICAL BID [facility]; Protocol Last Admin: 06/21/22 10:35 Dose: Not Given Documented By: KAMILA Non-Admin Reason: Med Not Available Ondansetron HCl (Ondansetron Hcl 4 Mg/2 Ml Vial) 4 mg IVPUSH Q6H PRN PRN Reason: Nausea Last Admin: 06/13/22 13:16 Dose: 4 mg Documented By: SANTOS Pharmacy Consult (Consult Rx Perform Med Rec) 1 each MISCELLANE ONCE PRN PRN Reason: Consult order Sodium Chloride (0.9 % Sodium Chloride Flush 3 Ml Syringe) 3 ml IVFLUSH QSHIFT [facility] Last Admin: 06/21/22 08:32 Dose: 3 ml Documented By: KAMILA Topiramate (Topiramate 100 Mg Tablet) 200 mg G-TUBE BID [facility] Last Admin: 06/21/22 09:17 Dose: 200 mg Documented By: KAMILA Labs CBC & Chem 7: 06/19/22 06:11 06/21/22 06:53 Labs: Laboratory Results - last 24 hr 06/21/22 06/21/22 06/21/22 06:53 06:53 06:57 VBG pH 7.48 H VBG pCO2 21 VBG pO2 176 VBG HCO3 16 L VBG O2 Saturation 100.0 VBG Base Excess -5.2 Anion Gap 13 Estim Creat Clear Calc 106.8 Estimated GFR > 60 Random Glucose 119 H Calcium 8.3 L Total Bilirubin 0.7 Direct Bilirubin 0.4 AST 19 ALT 17 Alkaline Phosphatase 78 Total Protein 5.8 L Albumin 3.0 L Assessment and Plan (1) Leukocytosis: Status: Acute Plan 62-year-old woman admitted on 05/18/2022 for question of colitis/Crohn's flare.? She was subsequently seen again by Dr. Peralta and had a flexible sigmoidoscopy which showed a perforation with abscess.? She was taking to the OR for exploratory laparotomy with colostomy.? She had extensive fecal soilage in the peritoneum.? Was severely septic and sent to the ICU intubated.? She had a fairly rough course of the last several weeks developing multiple intra-abdominal abscesses, fevers.? Multiple drains placed in IR.? She was treated with Flagyl and meropenem.? She was started on TPN for nutrition.? She was subsequently extubated on 06/07/2022.? She was transition to tube feeds and then today transition to diet.? Septic shock secondary to Perforated viscus with fecal peritonitis. Resolved Status post exploratory laparotomy with colostomy placement Treated with meropenem and Flagyl for approximately 3 weeks, antibiotics subsequently stopped Extubated 06/07/22, initially on TPN, transitioned to tube feeds now on pureed diet General surgery following, [address] with minimal drainage, repeat CT scan ordered by surgery to follow up on fluid collections. Case discussed with ID she does not recommend further antibiotics Toxic metabolic encephalopathy Secondary to septic shock from perforated viscus with intubation and infection, complicated course Resolved SABINE Resolved was likely secondary to septic shock, and hypovolemia Diabetes mellitus type 2 Stable blood sugars, Sliding scale, ADA diet Acute respiratory failure. Extubated 06/07/22 in ICU on room air 93%, Anemia Normocytic, no bleeding Mental health Continue duloxetine and Topamax DVT prophylaxis with heparin Full code Disposition. still pretty weak and lethargic, Will need extensive rehab once medically cleared Continue hospitalization since has persistent abdominal drains, leukocytosis need repeat imaging studies,need continued close monitoring, high risk for decompensation Quality Stroke Does the patient have a stroke diagnosis?: No VTE Prior VTE?: No VTE Risk Level:: Medical - moderate - high VTE Device Contraindication: N/A - Device Ordered VTE Drug Contraindication: N/A - Med Ordered
--- NOTE | 2022-06-21 16:32 | PM.EVENT ---
Event Note Date of Service: 06/23/22 Event Note: CT scan reviewed Appears to have large collection again on the left side of the abdomen near the spleen Will arrange for CT drainage of this area Not obstructed 2 drains placed on the left lower abdomen Official CT report still not in yet
[2022-06-21 19:11] VITALS: BP 119/56; PULSE 117; RESP 17; TEMP 37.3; O2SAT 94
[2022-06-21 20:47] LABS: Glucose, Whole Blood 139 mg/dL (60-115)
[2022-06-21] MEDS: Gabapentin 300 MG CAPSULE PO (21:26)
[2022-06-21] MEDS: DULoxetine HCl 60 MG CAPSULE.DR PO (21:26)
[2022-06-21 23:15] VITALS: BP 123/63; PULSE 94; RESP 14; TEMP 37.6; O2SAT 94
[2022-06-22] VITALS (8 sets, daily range): BP systolic 114–149; BP diastolic 59–71; PULSE 96–136; RESP 16–22; TEMP 37.1–37.7; O2SAT 92–96; BMI 34.7
[2022-06-22] MEDS: Metoclopramide HCl 10 MG/2 ML VIAL 5 MG IVPUSH ×5 (01:26→23:12)
[2022-06-22] MEDS: HYDROmorphone HCl 0.5 MG/0.5 ML SYRINGE IVPUSH ×3 (01:28→17:47)
[2022-06-22] MEDS: Dextrose 5 % and 0.45 % NaCl 1,000 ML 60 ML IVCONT (03:21)
--- NOTE | 2022-06-22 08:13 | PM.PNGS ---
Subjective Subjective Date of Service: 06/23/22 Interval history: No events reported No new complaints Stoma functioning Oral intake still marginal Physical Exam Vital Signs: Vital Signs: Last Vital Signs Temp 99.8 F 06/22/22 07:27 Pulse 107 H 06/22/22 07:27 Resp 16 06/22/22 07:27 BP 123/59 L 06/22/22 07:27 Pulse Ox 96 06/22/22 07:27 O2 Del Method 06/22/22 07:27 O2 Flow Rate 1 06/16/22 20:00 FiO2 35 06/14/22 12:00 Oxygen Flow Rate 35 06/13/22 21:00 BMI result Body Mass Index 34.7 Const: General: comfortable Resp: Other: Mildly short of breath Cardio: Rhythm: regular rhythm GI: Other: Soft, no guarding rebound, stoma with good output, incision clean Objective Data Active Medications Dextrose (Dextrose 50 % 25 Gm/50 Ml Syringe) 25 gm IVPUSH Q15M PRN; Protocol PRN Reason: per Hypoglycemia Standing Ord. Duloxetine HCl (Duloxetine Hcl 60 Mg Capsule.Dr) 60 mg PO BEDTIME [facility] Last Admin: 06/21/22 21:26 Dose: 60 mg Documented By: SIGRID Gabapentin (Gabapentin 300 Mg Capsule) 300 mg PO BEDTIME [facility] Last Admin: 06/21/22 21:26 Dose: 300 mg Documented By: SIGRID Glucose (Glucose Gel 15 Gm Gel..Gram.) 15 gm PO Q15M PRN; Protocol PRN Reason: per Hypoglycemia Standing Ord. Heparin Sodium (Porcine) (Heparin Sodium,Porcine 5,000 Unit/Ml Vial) 5,000 unit SUBCUT Q8H [facility] Last Admin: 06/22/22 01:27 Dose: Not Given Documented By: SIGRID Non-Admin Reason: AM procedure Hydromorphone HCl (Hydromorphone Hcl 0.5 Mg/0.5 Ml Syringe) 0.5 mg IVPUSH Q1H PRN; Protocol PRN Reason: mild pain Last Admin: 06/22/22 01:28 Dose: 0.5 mg Documented By: SIGRID Erythromycin Lactobionate 500 (mg/ Sodium Chloride) 100 mls @ 100 mls/hr IV Q8H [facility] Last Infusion: 06/22/22 03:02 Dose: 0 mls/hr Documented By: SIGRID Dextrose/Sodium Chloride (D51/2ns) 1,000 mls @ 60 mls/hr IVCONT .[id number] [facility] Last Admin: 06/22/22 03:21 Dose: 60 mls/hr Documented By: SIGRID Insulin Human Lispro (Insulin Lispro 100 Unit/Ml 3 Ml Vial) 0 unit SUBCUT QIDACHS [facility]; Protocol Last Admin: 06/21/22 21:39 Dose: Not Given Documented By: SIGRID Non-Admin Reason: No Insulin Coverage Lisinopril (Lisinopril 5 Mg Tablet) 5 mg PO DAILY [facility]; Protocol Last Admin: 06/21/22 09:18 Dose: 5 mg Documented By: KAMILA Metoclopramide HCl (Metoclopramide Hcl 10 Mg/2 Ml Vial) 5 mg IVPUSH Q6H [facility] Last Admin: 06/22/22 06:12 Dose: 5 mg Documented By: SIGRID Metoprolol Tartrate (Metoprolol Tartrate 25 Mg Tablet) 75 mg NG-TUBE BID [facility]; Protocol Last Admin: 06/21/22 21:26 Dose: 75 mg Documented By: SIGRID Nystatin (Nystatin Powder 15 Gm Bottle) 1 appl TOPICAL BID [facility]; Protocol Last Admin: 06/21/22 21:39 Dose: Not Given Documented By: SIGRID Non-Admin Reason: Patient Refused Ondansetron HCl (Ondansetron Hcl 4 Mg/2 Ml Vial) 4 mg IVPUSH Q6H PRN PRN Reason: Nausea Last Admin: 06/13/22 13:16 Dose: 4 mg Documented By: SANTOS Pharmacy Consult (Consult Rx Perform Med Rec) 1 each MISCELLANE ONCE PRN PRN Reason: Consult order Sodium Chloride (0.9 % Sodium Chloride Flush 3 Ml Syringe) 3 ml IVFLUSH QSHIFT [facility] Last Admin: 06/21/22 21:26 Dose: 3 ml Documented By: SIGRID Topiramate (Topiramate 100 Mg Tablet) 200 mg G-TUBE BID [facility] Last Admin: 06/21/22 21:26 Dose: 200 mg Documented By: SIGRID Labs CBC & Chem 7: 06/23/22 06:07 06/23/22 06:07 Labs: Laboratory Results - last 24 hr 06/21/22 20:44 POC Glucose 139 H Procedures Date of Service Date of Service: 06/23/22 Arterial Line Size (Gauge): 16 Progress Note: A&P Assessment and plan (1) Status post colostomy: Status: Acute Assessment and Plan: CT images reviewed from yesterday - fluid collection on the left Ordered for repeat CT drain today Abdomen soft, stoma functioning Push oral intake - okay to have food from home Out of bed to chair Family updated Discussed with hospitalist service Time Spent With Patient Time: Total time spent is greater than 50% in coordination of care (as documented) at patient's floor/unit and/or counseling patient: Quality Stroke Does the patient have a stroke diagnosis?: No VTE Prior VTE?: No VTE Risk Level:: Medical - moderate - high VTE Device Contraindication: N/A - Device Ordered VTE Drug Contraindication: N/A - Med Ordered
[2022-06-22] MEDS: 0.9 % Sodium Chloride Flush 3 ML SYRINGE IVFLUSH ×3 (11:06→20:19)
[2022-06-22] MEDS: Nystatin Powder 15 GM BOTTLE 1 APPL TOPICAL ×2 (11:23→20:24)
--- NOTE | 2022-06-22 12:00 | MHC.SLORD ---
Speech Language Pathology Order Status: Patient is awaiting CT w/ drainage of collected abdominal fluids. At time of visit this morning, patient was in discomfort, receiving pain medication by IV. Not appropriate for PO trials this a.m. 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
--- NOTE | 2022-06-22 16:04 | HO.PM.IMPN ---
Subjective Subjective Date of Service: 06/22/22 Interval History: Feels tired complaining of pain asking for pain medications, feels nauseous ,no fevers, no acute overnight events. 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 Neck no JVD. CVS? regular rate rhythm,tachycardic Respiratory lungs clear to auscultation, no respiratory distress, no wheeze, no rhonchi. Gastrointestinal abdomen soft, mild tenderness ,no guarding, no rigidity, bowel sounds audible, stoma functioning 2 drains on left side with cloudy drainage. Extremities no edema. Neuro nonfocal Skin no rash Psych appropriate affect Objective Data Active Medications Dextrose (Dextrose 50 % 25 Gm/50 Ml Syringe) 25 gm IVPUSH Q15M PRN; Protocol PRN Reason: per Hypoglycemia Standing Ord. Duloxetine HCl (Duloxetine Hcl 60 Mg Capsule.) 60 mg PO BEDTIME [facility] Last Admin: 06/21/22 21:26 Dose: 60 mg Documented By: SIGRID Gabapentin (Gabapentin 300 Mg Capsule) 300 mg PO BEDTIME [facility] Last Admin: 06/21/22 21:26 Dose: 300 mg Documented By: SIGRID Glucose (Glucose Gel 15 Gm Gel..Gram.) 15 gm PO Q15M PRN; Protocol PRN Reason: per Hypoglycemia Standing Ord. Heparin Sodium (Porcine) (Heparin Sodium,Porcine 5,000 Unit/Ml Vial) 5,000 unit SUBCUT Q8H [facility] Last Admin: 06/22/22 11:05 Dose: Not Given Documented By: JOSE DE JESUS Non-Admin Reason: hold for procedure Hydromorphone HCl (Hydromorphone Hcl 0.5 Mg/0.5 Ml Syringe) 0.5 mg IVPUSH Q1H PRN; Protocol PRN Reason: mild pain Last Admin: 06/22/22 10:59 Dose: 0.5 mg Documented By: JOSE DE JESUS Erythromycin Lactobionate 500 (mg/ Sodium Chloride) 100 mls @ 100 mls/hr IV Q8H [facility] Last Infusion: 06/22/22 12:17 Dose: 0 mls/hr Documented By: JOSE DE JESUS Dextrose/Sodium Chloride (D51/2ns) 1,000 mls @ 60 mls/hr IVCONT .[id number] [facility] Last Admin: 06/22/22 03:21 Dose: 60 mls/hr Documented By: SIGRID Insulin Human Lispro (Insulin Lispro 100 Unit/Ml 3 Ml Vial) 0 unit SUBCUT QIDACHS [facility]; Protocol Last Admin: 06/22/22 12:46 Dose: Not Given Documented By: JOSE DE JESUS Non-Admin Reason: Medication Discontinued Lisinopril (Lisinopril 5 Mg Tablet) 5 mg PO DAILY [facility]; Protocol Last Admin: 06/22/22 11:11 Dose: Not Given Documented By: JOSE DE JESUS Non-Admin Reason: NPO Metoclopramide HCl (Metoclopramide Hcl 10 Mg/2 Ml Vial) 5 mg IVPUSH Q6H [facility] Last Admin: 06/22/22 10:59 Dose: 5 mg Documented By: JOSE DE JESUS Metoprolol Tartrate (Metoprolol Tartrate 25 Mg Tablet) 75 mg NG-TUBE BID [facility]; Protocol Last Admin: 06/22/22 11:11 Dose: Not Given Documented By: JOSE DE JESUS Non-Admin Reason: NPO Nystatin (Nystatin Powder 15 Gm Bottle) 1 appl TOPICAL BID [facility]; Protocol Last Admin: 06/22/22 11:23 Dose: 1 appl Documented By: JOSE DE JESUS Ondansetron HCl (Ondansetron Hcl 4 Mg/2 Ml Vial) 4 mg IVPUSH Q6H PRN PRN Reason: Nausea Last Admin: 06/13/22 13:16 Dose: 4 mg Documented By: SANTOS Pharmacy Consult (Consult Rx Perform Med Rec) 1 each MISCELLANE ONCE PRN PRN Reason: Consult order Sodium Chloride (0.9 % Sodium Chloride Flush 3 Ml Syringe) 3 ml IVFLUSH QSHIFT [facility] Last Admin: 06/22/22 11:06 Dose: 3 ml Documented By: JOSE DE JESUS Topiramate (Topiramate 100 Mg Tablet) 200 mg G-TUBE BID [facility] Last Admin: 06/22/22 11:11 Dose: Not Given Documented By: JOSE DE JESUS Non-Admin Reason: NPO Labs CBC & Chem 7: 06/19/22 06:11 06/21/22 06:53 Labs: Laboratory Results - last 24 hr 06/21/22 20:44 POC Glucose 139 H Assessment and Plan (1) Leukocytosis: Status: Acute Plan 62-year-old woman admitted on 05/18/2022 for question of colitis/Crohn's flare.? She was subsequently seen again by Dr. Peralta and had a flexible sigmoidoscopy which showed a perforation with abscess.? She was taking to the OR for exploratory laparotomy with colostomy.? She had extensive fecal soilage in the peritoneum.? Was severely septic and sent to the ICU intubated.? She had a fairly rough course of the last several weeks developing multiple intra-abdominal abscesses, fevers.? Multiple drains placed in IR.? She was treated with Flagyl and meropenem.? She was started on TPN for nutrition.? She was subsequently extubated on 06/07/2022.? She was transition to tube feeds and then today transition to diet.? Septic shock secondary to Perforated viscus with fecal peritonitis. Resolved Status post exploratory laparotomy with colostomy placement Treated with meropenem and Flagyl for approximately 3 weeks, antibiotics subsequently stopped Extubated 06/07/22, initially on TPN, transitioned to tube feeds now on pureed diet Continue to have abdominal discomfort decreased by mouth intake repeat CT scan official report pending as per General surgery has left fluid collection therefore recommended IR guided drain placement Two left-sided drain with cloudy drainage Case discussed with ID she does not recommend further antibiotics Follow CBC and electrolytes Mild tachycardia related to pain Place on IV fluid 50 mL/hour, change IV Dilaudid to 0.5 mg q.4 hours Toxic metabolic encephalopathy Secondary to septic shock from perforated viscus with intubation and infection, complicated course Resolved SABINE Resolved was likely secondary to septic shock, and hypovolemia Diabetes mellitus type 2 Stable blood sugars, Sliding scale, ADA diet Acute respiratory failure. Extubated 06/07/22 in ICU on room air 93%, Anemia Normocytic, no bleeding, follow CBC Mental health Continue duloxetine and Topamax DVT prophylaxis with heparin Full code Disposition. still pretty weak and lethargic, with reaccumulation of fluid on left side of abdomen requiring drainage by IR, Will need extensive rehab once medically cleared Continue hospitalization since has persistent abdominal drains, leukocytosis need repeat imaging studies,need continued close monitoring, high risk for decompensation Quality Stroke Does the patient have a stroke diagnosis?: No VTE Prior VTE?: No VTE Risk Level:: Medical - moderate - high VTE Device Contraindication: N/A - Device Ordered VTE Drug Contraindication: N/A - Med Ordered
--- NOTE | 2022-06-22 16:36 | HO.RADPN ---
RADIOLOGY Narrative Narrative: LUQ abscess drainage using 12 Fr drain. 500 mL puruent fluid aspirated. Specimen sent for gs and culture.
--- NOTE | 2022-06-22 17:03 | PC.NURSE ---
Brown port of TLC unable to flush. Dr. Hurtado notified. To attempt to get peripheral access when patient returns from drain procedure.
--- NOTE | 2022-06-22 17:11 | PM.EVENT ---
Event Note Date of Service: 06/26/22 Event Note: Patient had successful CT drainage Large amount purulent drainage done Drainage left in place Follow-up cultures dw Dr. Kramer restart diet
[2022-06-22 18:08] LABS: Glucose, Whole Blood 98 mg/dL (60-115)
[2022-06-22] MEDS: Lactated Ringers 1,000 ML 50 ML IVCONT ×2 (19:43→21:48)
[2022-06-22 20:05] LABS: Glucose, Whole Blood 131 mg/dL (60-115)
[2022-06-22] MEDS: Topiramate 100 MG TABLET 200 MG G-TUBE (20:17)
[2022-06-22] MEDS: Metoprolol Tartrate 25 MG TABLET 75 MG NG-TUBE (20:17)
[2022-06-22] MEDS: Gabapentin 300 MG CAPSULE PO (20:17)
[2022-06-22] MEDS: Morphine Sulfate 4 MG/ML CARTRIDGE IVPUSH (20:18)
[2022-06-22] MEDS: DULoxetine HCl 60 MG CAPSULE.DR PO (20:18)
[2022-06-22] MEDS: Heparin Sodium,Porcine 5,000 UNIT/ML VIAL 5000 UNIT SUBCUT (23:12)
--- NOTE | 2022-06-22 23:47 | MHC.PIE ---
1999 p; pt c/o pain 03/19 asking for more pain med. note; prn dilaudid given at 1747 i; dr chilel notified; new order morphine 4 mg iv now e; pt in bed asleep, no sign of pain or discomfort noted. will con to monitor
[2022-06-23] VITALS (15 sets, daily range): BP systolic 103–186; BP diastolic 54–85; PULSE 98–134; RESP 15–24; TEMP 36.4–38.3; O2SAT 92–95
[2022-06-23] MEDS: HYDROmorphone HCl 0.5 MG/0.5 ML SYRINGE IVPUSH ×4 (01:55→23:33)
[2022-06-23] MEDS: Metoclopramide HCl 10 MG/2 ML VIAL 5 MG IVPUSH ×4 (05:29→23:33)
[2022-06-23 06:16] LABS: Hematocrit 23.6 % (37.0-47.0); Hemoglobin 7.6 g/dl (12.0-16.0); Mean Corpuscular HGB Conc 32.2 g/dl (31.0-35.0); Mean Corpuscular Hemoglobin 29.6 pg (27.0-33.0); Mean Corpuscular Volume 91.8 fL (80.0-98.0); Mean Platelet Volume 9.8 fL (9.4-12.3); Platelet Count 272 X10*3/uL (160-400); Red Blood Count 2.57 X10*6/uL (4.20-5.50); Red Cell Distribution Width 16.9 % (11.0-16.0); White Blood Count 14.5 X10*3/uL (4.8-10.8)
[2022-06-23 06:30] LABS: Anion Gap 14 (12-20); Blood Urea Nitrogen 10 mg/dL (9-16); Calcium 8.3 mg/dL (8.4-10.2); Carbon Dioxide 20 mmol/L (22-29); Chloride 106 mmol/L (96-108); Creatinine Clr Calc Pharmacy 115.8; Estimated Glomerular Filt Rate > 60; Glucose Random 101 mg/dL (60-115); Potassium 3.4 mmol/L (3.3-5.1); Sodium 137 mmol/L (135-145)
[2022-06-23] MEDS: 0.9 % Sodium Chloride Flush 3 ML SYRINGE IVFLUSH ×2 (07:55→17:48)
[2022-06-23] MEDS: Heparin Sodium,Porcine 5,000 UNIT/ML VIAL 5000 UNIT SUBCUT (07:55)
[2022-06-23] MEDS: Nystatin Powder 15 GM BOTTLE 1 APPL TOPICAL (07:56)
[2022-06-23] MEDS: Topiramate 100 MG TABLET 200 MG G-TUBE (07:56)
[2022-06-23] MEDS: lisinopriL 5 MG TABLET PO (07:56)
[2022-06-23] MEDS: Metoprolol Tartrate 25 MG TABLET 75 MG NG-TUBE (07:56)
--- NOTE | 2022-06-23 09:57 | P.PNGS_ITS ---
Subjective Subjective Date of Service: 06/23/22 Interval history: had successful CT drain yesterday was hungry - says she had good oral intake for breakfast conversant a little short of breath stoma functioning Physical Exam Vital Signs: Vital Signs: Last Vital Signs Temp 98.8 F 06/23/22 08:59 Pulse 98 06/23/22 08:59 Resp 20 06/23/22 08:59 BP 108/55 L 06/23/22 08:59 Pulse Ox 93 06/23/22 08:59 O2 Del Method 06/23/22 08:59 O2 Flow Rate 1 06/16/22 20:00 FiO2 35 06/14/22 12:00 Oxygen Flow Rate 35 06/13/22 21:00 BMI result Body Mass Index 34.7 Const: Other: still a little short of breath, conversant Resp: Other: mild SOB Cardio: Rate: tachycardic GI: Other: soft, drains in place - new drain with purulent fluid stoma functioning well Objective Data Active Medications Dextrose (Dextrose 50 % 25 Gm/50 Ml Syringe) 25 gm IVPUSH Q15M PRN; Protocol PRN Reason: per Hypoglycemia Standing Ord. Duloxetine HCl (Duloxetine Hcl 60 Mg Capsule.Dr) 60 mg PO BEDTIME [facility] Last Admin: 06/22/22 20:18 Dose: 60 mg Documented By: VARUN Gabapentin (Gabapentin 300 Mg Capsule) 300 mg PO BEDTIME [facility] Last Admin: 06/22/22 20:17 Dose: 300 mg Documented By: VARUN Glucose (Glucose Gel 15 Gm Gel..Gram.) 15 gm PO Q15M PRN; Protocol PRN Reason: per Hypoglycemia Standing Ord. Heparin Sodium (Porcine) (Heparin Sodium,Porcine 5,000 Unit/Ml Vial) 5,000 unit SUBCUT Q8H [facility] Last Admin: 06/23/22 07:55 Dose: 5,000 unit Documented By: SANTOS Hydromorphone HCl (Hydromorphone Hcl 0.5 Mg/0.5 Ml Syringe) 0.5 mg IVPUSH Q4H PRN; Protocol PRN Reason: mild pain Last Admin: 06/23/22 07:52 Dose: 0.5 mg Documented By: SANTOS Erythromycin Lactobionate 500 (mg/ Sodium Chloride) 100 mls @ 100 mls/hr IV Q8H [facility] Last Infusion: 06/23/22 01:00 Dose: 0 mls/hr Documented By: VARUN Insulin Human Lispro (Insulin Lispro 100 Unit/Ml 3 Ml Vial) 0 unit SUBCUT QIDACHS [facility]; Protocol Last Admin: 06/23/22 07:57 Dose: Not Given Documented By: SANTOS Non-Admin Reason: No Insulin Coverage Lisinopril (Lisinopril 5 Mg Tablet) 5 mg PO DAILY [facility]; Protocol Last Admin: 06/23/22 07:56 Dose: 5 mg Documented By: SANTOS Metoclopramide HCl (Metoclopramide Hcl 10 Mg/2 Ml Vial) 5 mg IVPUSH Q6H [facility] Last Admin: 06/23/22 05:29 Dose: 5 mg Documented By: VARUN Metoprolol Tartrate (Metoprolol Tartrate 25 Mg Tablet) 75 mg NG-TUBE BID [facility]; Protocol Last Admin: 06/23/22 07:56 Dose: 75 mg Documented By: SANTOS Nystatin (Nystatin Powder 15 Gm Bottle) 1 appl TOPICAL BID [facility]; Protocol Last Admin: 06/23/22 07:56 Dose: 1 appl Documented By: SANTOS Ondansetron HCl (Ondansetron Hcl 4 Mg/2 Ml Vial) 4 mg IVPUSH Q6H PRN PRN Reason: Nausea Last Admin: 06/13/22 13:16 Dose: 4 mg Documented By: SANTOS Pharmacy Consult (Consult Rx Perform Med Rec) 1 each MISCELLANE ONCE PRN PRN Reason: Consult order Sodium Chloride (0.9 % Sodium Chloride Flush 3 Ml Syringe) 3 ml IVFLUSH QSHIFT [facility] Last Admin: 06/23/22 07:55 Dose: 3 ml Documented By: SANTOS Topiramate (Topiramate 100 Mg Tablet) 200 mg G-TUBE BID [facility] Last Admin: 06/23/22 07:56 Dose: 200 mg Documented By: SATNOS Labs CBC & Chem 7: 06/23/22 06:07 06/23/22 06:07 Labs: Laboratory Results - last 24 hr 06/22/22 06/22/22 06/23/22 18:04 20:00 06:07 MCV 91.8 MCH 29.6 MCHC 32.2 RDW 16.9 H Plt Count 272 MPV 9.8 Absolute Nucleated RBC 0.000 Nucleated RBC % (auto) 0.0 Anion Gap Estim Creat Clear Calc Estimated GFR POC Glucose 98 131 H Random Glucose Calcium 06/23/22 06:07 MCV MCH MCHC RDW Plt Count MPV Absolute Nucleated RBC Nucleated RBC % (auto) Anion Gap 14 Estim Creat Clear Calc 115.8 Estimated GFR > 60 POC Glucose Random Glucose 101 Calcium 8.3 L Microbiology Microbiology Results: Microbiology 06/22/22 16:30 Gram Stain - Final Abdominal Fluid Procedures Date of Service Date of Service: 06/23/22 Arterial Line Size (Gauge): 16 Progress Note: A&P Assessment and plan (1) Status post colostomy: Status: Acute Assessment and Plan: CT drain yesterday - large amounts of purulent fluid await cultures push PO intake - seems to have better intake stoma functioning incetnive spirometry - instructed at bedside ok to tranfuse - low Hg , likely multifactorial, no evidence of acute bleed improving Time Spent With Patient Time: Total time spent is greater than 50% in coordination of care (as documented) at patient's floor/unit and/or counseling patient: Quality Stroke Does the patient have a stroke diagnosis?: No VTE Prior VTE?: No VTE Risk Level:: Medical - moderate - high VTE Device Contraindication: N/A - Device Ordered VTE Drug Contraindication: N/A - Med Ordered
--- NOTE | 2022-06-23 10:21 | MHC.SL.SWA ---
Speech Pathologist Impression: Oropharyngeal dysphagia Risk of Aspiration Due to: Medically Fragile Hx of Recent Extubation Weak Cough Dysphasia Diet Status: Recommend UPGRADE to REGULAR solids and THIN liquids, pills whole or crushed in puree. No changes made to diet order in [place]pan[place], as pt is presently on regular/thin. Pt continues to require assistance with tray set up and throughout meal, encourage self-feeding when possible. Recommend avoid tough to chew solids, sticky or dry consistencies. BACKUP OPERATOR to f/u 1-2x to monitor tolerance of unmodified diet. Liquid Consistency and Strategies for Safe Swallow: Liquid Intake Recommendation: Thin Liquid Intake Strategies: Small Sips No Straws Solid Food Consistency: Dietary Recommendations: Regular Additional Modifications to Solid Foods: Avoid hard, tough to chew solids; sticky or dry foods Oral Medication Intake: Whole with Puree Please contact the pharmacy regarding appropriate crushable or liquid drug formulations that are available whenever modified delivery is recommended. Compensatory Strategies and Precautions to be Taken for Safe Swallow: Sitting Upright (90 deg) No Straw Liquids from Cup Liquids from Spoon Small Bites and Sips Alternate Liquids/Solids Rate of Ingestion Change Oral Check Avoid Specific Foods Supervision While Eating and Drinking for Safe Swallow: Total Assistance (1:1) Foods to Avoid: Hard, difficult to chew solids; dry or sticky foods Swallowing Recommended Treatments: Compens. Strategy Educat. Recommendation for Speech: Inpatient Speech Therapy Comment: Pt w/ oropharyngeal dysphagia s/p extubation. Frequency/Duration: M-F Date Range for Service Req: Timeline to reassess: Saddle Stitching Machine Operator Clinican/Clinical Fellow: Yes: Keyon Blair Supervisory Statement: I have reviewed and agree with the student/clinical fellow's documentation: N/A Speech Language Pathologist: Majo Grissom M.A., [facility]-BACKUP OPERATOR
--- NOTE | 2022-06-23 10:54 | MHC.CLN ---
F/U PO INTAKE IMPROVED SLIGHTLY PER FAMILY MEMBER DIET RX: REGULAR-APPROPRIATE BUILDING AND CONSTRUCTION MANAGER FOLLOWING FOR APPROPRIATE DIET CONSISTENCY PT RECEPTIVE TO DRINKING ENSURE VANILLA FLAVOR TID AND MAGIC CUP TRIAL TO INCREASE KCALS RE-STARTED ENSURE SUPP TO PROVIDE 1050KCALS, 60G PROTEIN AND MAGIC CUP PROVIDES 870KCALS, 27G PROTEIN WITH 100% ACCEPTANCE MONITOR PO INTAKE CLOSELY
[2022-06-23] MEDS: Enoxaparin Sodium 40 MG/0.4 ML SYRINGE SUBCUT (11:49)
[2022-06-23] MEDS: oxyCODONE HCl Immed Release 5 MG TABLET PO (11:49)
--- NOTE | 2022-06-23 12:39 | MHC.CM.PN ---
per rounds pt is not ready for dc plan is for str when stable
--- NOTE | 2022-06-23 14:45 | PM.GIPN ---
Subjective Subjective Date of Service: 06/23/22 Interval History: somnolent after receiving pain medication ate better this am Critical Care Time (minutes): 0 Physical Exam Vital Signs: Vital Signs: Last Vital Signs Temp 100.5 F H 06/23/22 13:50 Pulse 118 H 06/23/22 13:50 Resp 20 06/23/22 13:50 BP 136/64 06/23/22 13:50 Pulse Ox 94 06/23/22 11:29 O2 Del Method 06/23/22 11:29 O2 Flow Rate 1 06/16/22 20:00 FiO2 35 06/14/22 12:00 Oxygen Flow Rate 35 06/13/22 21:00 BMI result Body Mass Index 34.7 GI: Other: exam unchanged Skin: Other: pale Extrem: Other: not edematous Objective Data Labs CBC & Chem 7: 06/23/22 06:07 06/23/22 06:07 Procedures Date of Service Date of Service: 06/23/22 Arterial Line Size (Gauge): 16 Progress Note: A&P Assessment and plan (1) Perforated viscus: Status: Acute Assessment and Plan: drainage of fluid collection may have helped to take pressure off stomach to allow for better po intake continue present management. Time Spent With Patient Time: Total time spent is greater than 50% in coordination of care (as documented) at patient's floor/unit and/or counseling patient: Quality Stroke Does the patient have a stroke diagnosis?: No VTE Prior VTE?: No VTE Risk Level:: Medical - moderate - high VTE Device Contraindication: N/A - Device Ordered VTE Drug Contraindication: N/A - Med Ordered
--- NOTE | 2022-06-23 15:07 | P.PNIM_ITS ---
Subjective Subjective Date of Service: 06/23/22 Interval History: This morning patient noted to be short of breath tachycardic, later patient feels shortness of breath has resolved noted to have intermittent tachycardia patient denies chest pain, no palpitation complaining of left upper quadrant pain, developed low-grade fever this afternoon, denies headache, no dizziness, no cough denies nausea vomiting, colostomy with small amount of brown liquidy stool. 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 Neck no JVD. CVS? regular rate rhythm,tachycardic Respiratory lungs clear to auscultation, no respiratory distress, no wheeze, no rhonchi. Gastrointestinal abdomen soft, mild tenderness left upper quadrant ,no guarding, no rigidity, bowel sounds audible, stoma functioning 3 drains on left side with cloudy drainage. Extremities no edema. Neuro nonfocal Skin pallor, no rash Psych appropriate affect Objective Data Active Medications Duloxetine HCl (Duloxetine Hcl 60 Mg Capsule.) 60 mg PO BEDTIME [facility] Last Admin: 06/22/22 20:18 Dose: 60 mg Documented By: VARUN Enoxaparin Sodium (Enoxaparin Sodium 40 Mg/0.4 Ml Syringe) 40 mg SUBCUT Q24H [facility] Last Admin: 06/23/22 11:49 Dose: 40 mg Documented By: SANTOS Gabapentin (Gabapentin 300 Mg Capsule) 300 mg PO BEDTIME [facility] Last Admin: 06/22/22 20:17 Dose: 300 mg Documented By: VARUN Hydromorphone HCl (Hydromorphone Hcl 0.5 Mg/0.5 Ml Syringe) 0.5 mg IVPUSH Q4H PRN; Protocol PRN Reason: mild pain Last Admin: 06/23/22 07:52 Dose: 0.5 mg Documented By: SANTOS Lisinopril (Lisinopril 5 Mg Tablet) 5 mg PO DAILY [facility]; Protocol Last Admin: 06/23/22 07:56 Dose: 5 mg Documented By: SANTOS Metoclopramide HCl (Metoclopramide Hcl 10 Mg/2 Ml Vial) 5 mg IVPUSH Q6H [facility] Last Admin: 06/23/22 11:49 Dose: 5 mg Documented By: SANTOS Metoprolol Tartrate (Metoprolol Tartrate 25 Mg Tablet) 75 mg NG-TUBE BID [facility]; Protocol Last Admin: 06/23/22 07:56 Dose: 75 mg Documented By: SANTOS Nystatin (Nystatin Powder 15 Gm Bottle) 1 appl TOPICAL BID [facility]; Protocol Last Admin: 06/23/22 07:56 Dose: 1 appl Documented By: SANTOS Ondansetron HCl (Ondansetron Hcl 4 Mg/2 Ml Vial) 4 mg IVPUSH Q6H PRN PRN Reason: Nausea Last Admin: 06/13/22 13:16 Dose: 4 mg Documented By: SANTOS Oxycodone HCl (Oxycodone Hcl Immed Release 5 Mg Tablet) 5 mg PO Q4H PRN PRN Reason: Pain, Moderate (Pain Scale 4-6 Last Admin: 06/23/22 11:49 Dose: 5 mg Documented By: SANTOS Pharmacy Consult (Consult Rx Perform Med Rec) 1 each MISCELLANE ONCE PRN PRN Reason: Consult order Sodium Chloride (0.9 % Sodium Chloride Flush 3 Ml Syringe) 3 ml IVFLUSH QSHIFT [facility] Last Admin: 06/23/22 07:55 Dose: 3 ml Documented By: SANTOS Topiramate (Topiramate 100 Mg Tablet) 200 mg G-TUBE BID [facility] Last Admin: 06/23/22 07:56 Dose: 200 mg Documented By: SANTOS Labs CBC & Chem 7: 06/23/22 06:07 06/23/22 06:07 Labs: Laboratory Results - last 24 hr 1006/22/22 06/23/22 18:04 20:00 06:07 MCV 91.8 MCH 29.6 MCHC 32.2 RDW 16.9 H Plt Count 272 MPV 9.8 Absolute Nucleated RBC 0.000 Nucleated RBC % (auto) 0.0 Anion Gap Estim Creat Clear Calc Estimated GFR POC Glucose 98 131 H Random Glucose Calcium Blood Type Antibody Screen Crossmatch 06/23/22 06/23/22 06:07 11:32 MCV MCH MCHC RDW Plt Count MPV Absolute Nucleated RBC Nucleated RBC % (auto) Anion Gap 14 Estim Creat Clear Calc 115.8 Estimated GFR > 60 POC Glucose Random Glucose 101 Calcium 8.3 L Blood Type B Positive Antibody Screen NEGATIVE Crossmatch See Detail Microbiology Microbiology Results: Microbiology 06/22/22 16:30 Gram Stain - Final Abdominal Fluid Routine Culture - Preliminary No growth to date. Anaerobic Culture - Preliminary No growth to date. Assessment and Plan (1) Leukocytosis: Status: Acute Plan 62-year-old woman admitted on 05/18/2022 for question of colitis/Crohn's flare.? She was subsequently seen again by Dr. Peralta and had a flexible sigmoidoscopy which showed a perforation with abscess.? She was taking to the OR for exploratory laparotomy with colostomy.? She had extensive fecal soilage in the peritoneum.? Was severely septic and sent to the ICU intubated.? She had a fairly rough course of the last several weeks developing multiple intra- abdominal abscesses, fevers.? Multiple drains placed in IR.? She was treated with Flagyl and meropenem.? She was started on TPN for nutrition.? She was subsequently extubated on 06/07/2022.? She was transition to tube feeds and then today transition to diet.? Septic shock secondary to Perforated viscus with fecal peritonitis. Resolved Status post exploratory laparotomy with colostomy placement Treated with meropenem and Flagyl for approximately 3 weeks, antibiotics subsequently stopped Extubated 06/07/22, initially on TPN, transitioned to tube feeds, now on regular diet with supplement By mouth intake improved Underwent IR guided drainage on 06/22, 500 mL purulent fluid was removed , drain in place with persistent cloudy drainage CBC gradually trending down Mild tachycardia likely due to pain and anemia DC IV fluid Continue IV Dilaudid to 0.5 mg q.4 hours and oxycodone 5 mg q.4 hours Noted to have soft blood pressures will DC Zestril continue beta-blockers DC IV erythromycin Will order midline since has right IJ for more than recommended duration Acute on chronic normocytic anemia likely due to acute infection no acute blood loss and noted will transfuse 1 unit follow CBC Shortness of breath likely due to anemia lungs clear to auscultation transfuse 1 unit of packed RBC follow clinical course encourage incentive spirometry Toxic metabolic encephalopathy Secondary to septic shock from perforated viscus with intubation and infection, complicated course Resolved SABINE Resolved was likely secondary to septic shock, and hypovolemia Diabetes mellitus type 2 Patient not on home medications will DC Sliding scale, blood sugar monitoring continue regular diet due to decreased by mouth Acute respiratory failure. Extubated 06/07/22 in ICU, on room air 93%, Mental health Continue duloxetine and Topamax DVT prophylaxis with Lovenox Full code Disposition. still pretty weak and lethargic, with reaccumulation of fluid on left side of abdomen Will need extensive rehab once medically cleared Continue hospitalization since has persistent abdominal drains, leukocytosis need repeat imaging studies,need continued close monitoring, high risk for decompensation Quality Stroke Does the patient have a stroke diagnosis?: No VTE Prior VTE?: No VTE Risk Level:: Medical - moderate - high VTE Device Contraindication: N/A - Device Ordered VTE Drug Contraindication: N/A - Med Ordered
--- NOTE | 2022-06-23 15:46 | PC.NURSE ---
Addendum entered by Shabana Hunter RN 06/23/22 18:17: pt back up to floor, c/o pain. medical numerical control operator per NOV. Temp, BP and HR elevated, MD notified. No new orders at this time. Call arteaga within reach, safety precautions taken. Sister at bedside with pt. Original Note: report received from overnight RN. Pt fatigued and drowsy this am. c/o pain to new drain site. office administration instructor per NOV. Pt with low grade fever, elevated BPs and HR, MD notified. 1 unit RBC ordered and administered. Pt down to IR for placement of midline and to DC triple lumen.
--- NOTE | 2022-06-23 17:35 | HO.MIDLINE ---
Midline Insertion MIDLINE INSERTION Diagnosis: Abdominal Pain Indication: IV pain meds and blood transfusions needed Pertinent Labs: reviewed Technique: Using sterile technique including cap and mask, glove and drape, the left arm was prepped and draped in the usual sterile fashion of full barrier technique with CHG. Using ultrasound guidance, left brachial vein access was attempted twice by Primitivo Prieto RN without success. Left brachial vein access was obtained on first attempt by Prashanth Lucas RN. 20G X 10 CM Non-PASV Midline was positioned. The procedure was performed in S272. Ultrasound was used to document vein patency and for needle entry. A formal ultrasound picture was recorded. Vascular Network Technician has released the line for use and it is currently dressed with a StatLock, Tegaderm, and CHG disc. Verification has been performed for blood return and line patency. Equipment: BARD PowerGlide ST Midline Catheter Type: [id number] Non-PASV Midline Lot #: [id number]
[2022-06-23] MEDS: Lactated Ringers 1,000 ML 80 ML IVCONT (17:48)
[2022-06-23] MEDS: Acetaminophen 325 MG TABLET 650 MG PO (17:59)
[2022-06-23] MEDS: ondansetron HCL 4 MG/2 ML VIAL IVPUSH (18:00)
[2022-06-23 18:09] LABS: Glucose, Whole Blood 122 mg/dL (60-115)
[2022-06-23 19:47] LABS: Glucose, Whole Blood 141 mg/dL (60-115)
[2022-06-23] MEDS: DULoxetine HCl 60 MG CAPSULE.DR PO (20:08)
[2022-06-23] MEDS: Metoprolol Tartrate 25 MG TABLET 75 MG PO (20:08)
[2022-06-23] MEDS: Topiramate 100 MG TABLET 200 MG PO (20:09)
[2022-06-23] MEDS: Heparin Sodium,Porcine Flush 50 UNITS, 0.9 % Sodium Chloride Flush 5 ML IVFLUSH (20:09)
[2022-06-23] MEDS: Gabapentin 300 MG CAPSULE PO (20:09)
[2022-06-24] VITALS (14 sets, daily range): BP systolic 109–158; BP diastolic 57–81; PULSE 98–140; RESP 15–20; TEMP 37.4–39.7; O2SAT 95–96; BMI 34.9
[2022-06-24] MEDS: Acetaminophen 325 MG TABLET 650 MG PO (02:37)
[2022-06-24] MEDS: HYDROmorphone HCl 0.5 MG/0.5 ML SYRINGE IVPUSH ×2 (05:27→15:26)
[2022-06-24] MEDS: Metoclopramide HCl 10 MG/2 ML VIAL 5 MG IVPUSH ×3 (05:28→19:54)
[2022-06-24 06:38] LABS: Hematocrit 26.9 % (37.0-47.0); Hemoglobin 8.8 g/dl (12.0-16.0); Mean Corpuscular HGB Conc 32.7 g/dl (31.0-35.0); Mean Corpuscular Hemoglobin 29.6 pg (27.0-33.0); Mean Corpuscular Volume 90.6 fL (80.0-98.0); Mean Platelet Volume 10.4 fL (9.4-12.3); Platelet Count 283 X10*3/uL (160-400); Red Blood Count 2.97 X10*6/uL (4.20-5.50); Red Cell Distribution Width 17.4 % (11.0-16.0)
[2022-06-24 06:50] LABS: Estimated Average Glucose 103 mg/dL; Hemoglobin A1c % 5.2 %
[2022-06-24 06:53] LABS: Anion Gap 15 (12-20); Blood Urea Nitrogen 13 mg/dL (9-16); Calcium 8.4 mg/dL (8.4-10.2); Carbon Dioxide 19 mmol/L (22-29); Chloride 106 mmol/L (96-108); Creatinine Clr Calc Pharmacy 115.9; Estimated Glomerular Filt Rate > 60; Glucose Random 115 mg/dL (60-115); Potassium 3.2 mmol/L (3.3-5.1); Sodium 137 mmol/L (135-145)
[2022-06-24 07:19] LABS: Glucose, Whole Blood 113 mg/dL (60-115)
[2022-06-24] MEDS: Topiramate 100 MG TABLET 200 MG PO ×2 (08:15→20:09)
[2022-06-24] MEDS: 0.9 % Sodium Chloride Flush 3 ML SYRINGE IVFLUSH ×3 (08:15→22:53)
[2022-06-24] MEDS: Heparin Sodium,Porcine Flush 50 UNITS, 0.9 % Sodium Chloride Flush 5 ML IVFLUSH ×3 (08:16→20:09)
[2022-06-24] MEDS: Metoprolol Tartrate 25 MG TABLET 75 MG PO ×2 (08:16→20:09)
[2022-06-24] MEDS: Piperacillin Sodium/Tazobactam 3.375 GM in 0.9 % Sodium Chloride 50 ML IV (08:33)
[2022-06-24] MEDS: oxyCODONE HCl Immed Release 5 MG TABLET PO ×2 (08:33→20:10)
--- NOTE | 2022-06-24 09:31 | P.PNGS_ITS ---
Subjective Subjective Date of Service: 06/25/22 Interval history: has had fever and tachycardia stoma continues to function well denies abdominal pain conversant this morning Physical Exam Vital Signs: Vital Signs: Last Vital Signs Temp 99.9 F 06/24/22 07:08 Pulse 135 H 06/24/22 07:08 Resp 16 06/24/22 07:08 BP 142/75 H 06/24/22 07:08 Pulse Ox 95 06/24/22 07:08 O2 Del Method 06/24/22 07:08 O2 Flow Rate 2 06/24/22 07:08 FiO2 35 06/14/22 12:00 Oxygen Flow Rate 35 06/13/22 21:00 BMI result Body Mass Index 34.9 Const: Other: some shortness of breath, conversant, answers questions appropriately Resp: Other: some shortness of breath Cardio: Rate: tachycardic GI: Other: stoma functioning well, midline incision clean, scanty drainage, drains in place, new drain with scanty purulent output Palpation (GI): Soft to palp ation, not firm, nontender and no guarding Objective Data Active Medications Acetaminophen (Acetaminophen 325 Mg Tablet) 650 mg PO Q6H PRN PRN Reason: Pain, Mild (Pain Scale 1-3) Last Admin: 06/24/22 02:37 Dose: 650 mg Documented By: CASS Heparin Sodium (Porcine) 50 (units/ Sodium Chloride 5 ml) 0 units IVFLUSH TID [facility] Last Admin: 06/24/22 08:16 Dose: 50 unit Documented By: SOLISKAY Duloxetine HCl (Duloxetine Hcl 60 Mg Capsule.) 60 mg PO BEDTIME [facility] Last Admin: 06/23/22 20:08 Dose: 60 mg Documented By: CASS Enoxaparin Sodium (Enoxaparin Sodium 40 Mg/0.4 Ml Syringe) 40 mg SUBCUT Q24H [facility] Last Admin: 06/23/22 11:49 Dose: 40 mg Documented By: FOGARTB Gabapentin (Gabapentin 300 Mg Capsule) 300 mg PO BEDTIME [facility] Last Admin: 06/23/22 20:09 Dose: 300 mg Documented By: CASS Hydromorphone HCl (Hydromorphone Hcl 0.5 Mg/0.5 Ml Syringe) 0.5 mg IVPUSH Q4H PRN; Protocol PRN Reason: mild pain Last Admin: 06/24/22 05:27 Dose: 0.5 mg Documented By: CASS Voriconazole 400 mg/ Sodium (Chloride) 100 mls @ 50 mls/hr IV Q12H [facility] Stop: 06/24/22 23:59 Voriconazole 200 mg/ Sodium (Chloride) 100 mls @ 50 mls/hr IV Q12H [facility] Meropenem 1 gm/ Sodium (Chloride) 100 mls @ 200 mls/hr IV Q8H [facility] Metoclopramide HCl (Metoclopramide Hcl 10 Mg/2 Ml Vial) 5 mg IVPUSH Q6H [facility] Last Admin: 06/24/22 05:28 Dose: 5 mg Documented By: CASS Comments: Metoprolol Tartrate (Metoprolol Tartrate 25 Mg Tablet) 75 mg PO BID [facility]; Protocol Last Admin: 06/24/22 08:16 Dose: 75 mg Documented By: EDYTA Nystatin (Nystatin Powder 15 Gm Bottle) 1 appl TOPICAL BID [facility]; Protocol Last Admin: 06/23/22 21:43 Dose: Not Given Documented By: CASS Non-Admin Reason: Previously Administered Ondansetron HCl (Ondansetron Hcl 4 Mg/2 Ml Vial) 4 mg IVPUSH Q6H PRN PRN Reason: Nausea Last Admin: 06/23/22 18:00 Dose: 4 mg Documented By: SANTOS Oxycodone HCl (Oxycodone Hcl Immed Release 5 Mg Tablet) 5 mg PO Q4H PRN PRN Reason: Pain, Moderate (Pain Scale 4-6 Last Admin: 06/24/22 08:33 Dose: 5 mg Documented By: EDYTA Pharmacy Consult (Consult Rx Perform Med Rec) 1 each MISCELLANE ONCE PRN PRN Reason: Consult order Sodium Chloride (0.9 % Sodium Chloride Flush 3 Ml Syringe) 3 ml IVFLUSH QSHIFT [facility] Last Admin: 06/24/22 08:15 Dose: 3 ml Documented By: EDYTA Topiramate (Topiramate 100 Mg Tablet) 200 mg PO BID [facility] Last Admin: 06/24/22 08:15 Dose: 200 mg Documented By: EDYTA Labs CBC & Chem 7: 06/25/22 06:39 06/25/22 06:39 Labs: Laboratory Results - last 24 hr 06/23/22 06/23/22 06/23/22 11:32 18:00 19:40 MCV MCH MCHC RDW Plt Count MPV Absolute Nucleated RBC Nucleated RBC % (auto) Anion Gap Estim Creat Clear Calc Estimated GFR POC Glucose 122 H 141 H Random Glucose Estimat Average Glucose Hemoglobin A1c % Calcium Blood Type B Positive Antibody Screen NEGATIVE Crossmatch See Detail 06/24/22 06/24/22 06/24/22 06:14 06:14 06:14 MCV 90.6 MCH 29.6 MCHC 32.7 RDW 17.4 H Plt Count 283 MPV 10.4 Absolute Nucleated RBC 0.000 Nucleated RBC % (auto) 0.0 Anion Gap 15 Estim Creat Clear Calc 115.9 Estimated GFR > 60 POC Glucose Random Glucose 115 Estimat Average Glucose 103 Hemoglobin A1c % 5.2 Calcium 8.4 Blood Type Antibody Screen Crossmatch 06/24/22 07:12 MCV MCH MCHC RDW Plt Count MPV Absolute Nucleated RBC Nucleated RBC % (auto) Anion Gap Estim Creat Clear Calc Estimated GFR POC Glucose 113 Random Glucose Estimat Average Glucose Hemoglobin A1c % Calcium Blood Type Antibody Screen Crossmatch Microbiology Microbiology Results: Microbiology 06/22/22 16:30 Gram Stain - Final Abdominal Fluid Routine Culture - Preliminary No growth to date. Anaerobic Culture - Preliminary No growth to date. Procedures Date of Service Date of Service: 06/24/22 Arterial Line Size (Gauge): 16 Progress Note: A&P Assessment and plan (1) Status post colostomy: Status: Acute Assessment and Plan: has had fever and tachycardia with leukocytosis restart antibiotics including antifungal abdomen otherwise very benign, stoma functioning well drain in place workup for other sources of infection okay to have oral intake out of bed to recliner discussed with hospitalist Time Spent With Patient Time: Total time spent is greater than 50% in coordination of care (as documented) at patient's floor/unit and/or counseling patient: Quality Stroke Does the patient have a stroke diagnosis?: No VTE Prior VTE?: No VTE Risk Level:: Medical - moderate - high VTE Device Contraindication: N/A - Device Ordered VTE Drug Contraindication: N/A - Med Ordered
[2022-06-24] MEDS: Enoxaparin Sodium 40 MG/0.4 ML SYRINGE SUBCUT (10:57)
--- NOTE | 2022-06-24 11:06 | PM.GIPN ---
Subjective Subjective Date of Service: 06/24/22 Interval History: sleepy Critical Care Time (minutes): 0 Physical Exam Vital Signs: Vital Signs: Last Vital Signs Temp 102.4 F H 06/24/22 10:21 Pulse 135 H 06/24/22 07:08 Resp 16 06/24/22 07:08 BP 142/75 H 06/24/22 07:08 Pulse Ox 95 06/24/22 07:08 O2 Del Method 06/24/22 07:08 O2 Flow Rate 0.5 06/24/22 07:08 FiO2 35 06/14/22 12:00 Oxygen Flow Rate 35 06/13/22 21:00 BMI result Body Mass Index 34.9 Const: Other: resting GI: Other: abdomen is soft without tenderness Objective Data Labs CBC & Chem 7: 06/24/22 06:14 06/24/22 06:14 Labs: Laboratory Results - last 24 hr 06/23/22 06/23/22 06/23/22 11:32 18:00 19:40 WBC RBC Hgb Hct MCV MCH MCHC RDW Plt Count MPV Absolute Nucleated RBC Nucleated RBC % (auto) Sodium Potassium Chloride Carbon Dioxide Anion Gap BUN Creatinine Estim Creat Clear Calc Estimated GFR POC Glucose 122 H 141 H Random Glucose Estimat Average Glucose Hemoglobin A1c % Calcium Blood Type B Positive Antibody Screen NEGATIVE Crossmatch See Detail 06/24/22 06/24/22 06/24/22 06:14 06:14 06:14 WBC 33.0 H* RBC 2.97 L Hgb 8.8 L Hct 26.9 L MCV 90.6 MCH 29.6 MCHC 32.7 RDW 17.4 H Plt Count 283 MPV 10.4 Absolute Nucleated RBC 0.000 Nucleated RBC % (auto) 0.0 Sodium 137 Potassium 3.2 L Chloride 106 Carbon Dioxide 19 L Anion Gap 15 BUN 13 Creatinine 0.54 Estim Creat Clear Calc 115.9 Estimated GFR > 60 POC Glucose Random Glucose 115 Estimat Average Glucose 103 Hemoglobin A1c % 5.2 Calcium 8.4 Blood Type Antibody Screen Crossmatch 06/24/22 07:12 WBC RBC Hgb Hct MCV MCH MCHC RDW Plt Count MPV Absolute Nucleated RBC Nucleated RBC % (auto) Sodium Potassium Chloride Carbon Dioxide Anion Gap BUN Creatinine Estim Creat Clear Calc Estimated GFR POC Glucose 113 Random Glucose Estimat Average Glucose Hemoglobin A1c % Calcium Blood Type Antibody Screen Crossmatch Procedures Date of Service Date of Service: 06/24/22 Arterial Line Size (Gauge): 16 Progress Note: A&P Assessment and plan (1) Perforated viscus: Status: Acute Plan increased wbc and fever concerning for underlying infection agree with checking cultures and abx Time Spent With Patient Time: Total time spent is greater than 50% in coordination of care (as documented) at patient's floor/unit and/or counseling patient: Quality Stroke Does the patient have a stroke diagnosis?: No VTE Prior VTE?: No VTE Risk Level:: Medical - moderate - high VTE Device Contraindication: N/A - Device Ordered VTE Drug Contraindication: N/A - Med Ordered
[2022-06-24] MEDS: ondansetron HCL 4 MG/2 ML VIAL IVPUSH (12:23)
--- NOTE | 2022-06-24 14:30 | P.PNID_ITS ---
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 in her room moving objects around),temperature 103.5 max and leukocytosis,tachypnea,tachycardia Objective Data Labs CBC & Chem 7: 06/24/22 06:14 06/24/22 06:14 Labs: Laboratory Results - last 24 hr 06/23/22 06/23/22 06/23/22 11:32 18:00 19:40 WBC RBC Hgb Hct MCV MCH MCHC RDW Plt Count MPV Absolute Nucleated RBC Nucleated RBC % (auto) Sodium Potassium Chloride Carbon Dioxide Anion Gap BUN Creatinine Estim Creat Clear Calc Estimated GFR POC Glucose 122 H 141 H Random Glucose Estimat Average Glucose Hemoglobin A1c % Calcium Crossmatch See Detail 06/24/22 06/24/22 06/24/22 06:14 06:14 06:14 WBC 33.0 H* RBC 2.97 L Hgb 8.8 L Hct 26.9 L MCV 90.6 MCH 29.6 MCHC 32.7 RDW 17.4 H Plt Count 283 MPV 10.4 Absolute Nucleated RBC 0.000 Nucleated RBC % (auto) 0.0 Sodium 137 Potassium 3.2 L Chloride 106 Carbon Dioxide 19 L Anion Gap 15 BUN 13 Creatinine 0.54 Estim Creat Clear Calc 115.9 Estimated GFR > 60 POC Glucose Random Glucose 115 Estimat Average Glucose 103 Hemoglobin A1c % 5.2 Calcium 8.4 Crossmatch 06/24/22 07:12 WBC RBC Hgb Hct MCV MCH MCHC RDW Plt Count MPV Absolute Nucleated RBC Nucleated RBC % (auto) Sodium Potassium Chloride Carbon Dioxide Anion Gap BUN Creatinine Estim Creat Clear Calc Estimated GFR POC Glucose 113 Random Glucose Estimat Average Glucose Hemoglobin A1c % Calcium Crossmatch Microbiology Microbiology Results: Microbiology 06/22/22 16:30 Abdominal Fluid Gram Stain - Final 06/22/22 16:30 Abdominal Fluid Routine Culture - Preliminary Culture in progress. 06/22/22 16:30 Abdominal Fluid Anaerobic Culture - Preliminary Culture in progress. 06/02/22 Unknown Abscess Intra-abdominal Fungal Identification - Preliminary Verónica dubliniensis 06/03/22 15:28 Blood - Subclavian Blood Culture - Final No growth after 5 days. 06/03/22 06:15 Blood - Venous Blood Culture - Final No growth after 5 days. 06/03/22 06:15 Blood - Venous Blood Culture - Final No growth after 5 days. 06/02/22 Unknown Peritoneal Fluid Gram Stain - Final 06/02/22 Unknown Peritoneal Fluid Routine Culture - Final Verónica albicans 06/02/22 Unknown Peritoneal Fluid Anaerobic Culture - Final 05/29/22 15:14 Blood - Venous Blood Culture - Final No growth after 5 days. 05/29/22 15:13 Blood - Venous Blood Culture - Final No growth after 5 days. 05/29/22 05:14 Blood - Venous Blood Culture - Final No growth after 5 days. 05/29/22 05:14 Blood - Venous Blood Culture - Final No growth after 5 days. 06/02/22 Unknown Abscess Intra-abdominal Gram Stain - Final 06/02/22 Unknown Abscess Intra-abdominal Routine Culture - Final 06/02/22 Unknown Abscess Intra-abdominal Anaerobic Culture - Final 06/02/22 Unknown Abscess Intra-abdominal Gram Stain - Final 06/02/22 Unknown Abscess Intra-abdominal Routine Culture - Final 05/28/22 Unknown Peritoneal Fluid Gram Stain - Final 05/28/22 Unknown Peritoneal Fluid Anaerobic Culture - Final 05/28/22 Unknown Peritoneal Fluid Body Fluid Culture - Final Verónica dubliniensis 05/29/22 15:05 Sputum - Suctioned Gram Stain - Final 05/29/22 15:05 Sputum - Suctioned Sputum Culture - Final Verónica dubliniensis 05/28/22 16:47 Sputum - Suctioned Gram Stain - Final 05/28/22 16:47 Sputum - Suctioned Sputum Culture - Final Verónica albicans 05/23/22 Unknown Peritoneal Fluid Gram Stain - Final 05/23/22 Unknown Peritoneal Fluid Routine Culture - Final Escherichia coli 05/23/22 Unknown Peritoneal Fluid Anaerobic Culture - Final Clostridium perfringens Bacteroides thetaiotaomicron 05/19/22 08:49 Blood - Venous Blood Culture - Final No growth after 5 days. 05/19/22 08:49 Blood - Venous Blood Culture - Final No growth after 5 days. Physical Exam Vital Signs: Vital Signs: Last Vital Signs Temp 99.9 F 06/24/22 11:54 Pulse 98 06/24/22 11:54 Resp 20 06/24/22 11:54 BP 152/67 H 06/24/22 11:54 Pulse Ox 95 06/24/22 11:54 O2 Del Method 06/24/22 11:54 O2 Flow Rate 0.5 06/24/22 11:54 FiO2 35 06/14/22 12:00 Oxygen Flow Rate 35 06/13/22 21:00 BMI result Body Mass Index 34.9 Const: General: cooperative Eyes: General: appearance normal, both eyes and all related structures Resp: Effort & Inspection: normal respiratory effort Cardio: Rate: regular rate Rhythm: regular rhythm GI: Other: purulence drain,colostomy bag liquid Palpation (GI): Soft to palpation and nontender Assessment and Plan Assessment and plan (1) Fever of unknown origin: Problem details: There is concern over infection/abdominal source possible Possible fungus but staph including MRSA as well Status: Acute Plan Would continue Merem and Voriconazole and start Vancomycin. Have ICU look at if declines Time Spent With Patient Time: Total time spent is greater than 50% in coordination of care (as documented) at patient's floor/unit and/or counseling patient: Procedures Arterial Line Size (Gauge): 16
--- NOTE | 2022-06-24 15:01 | P.PNIM_ITS ---
Subjective Subjective Date of Service: 06/24/22 Interval History: Events from last night noted patient developed a fever of 103.5 with worsening tachycardia, blood pressure remains stable, this morning temperature improved but went back up to 102.4 rectally, patient treated with Tylenol, patient awake answering questions appropriately although noted by ID to be delirious earlier, at present denies abdominal pain, has decreased appetite and decreased by mouth intake no nausea, denies headache or dizziness, has been feeling cold and hot. Review of Systems [employer] no headache no dizziness CVS no chest pain, no palpitations skin no rash Review of Systems: Yes all other systems are reviewed and are negative Physical Exam Vital Signs: Vital Signs: Last Vital Signs Temp 99.9 F 06/24/22 11:54 Pulse 98 06/24/22 11:54 Resp 20 06/24/22 11:54 BP 152/67 H 06/24/22 11:54 Pulse Ox 95 06/24/22 11:54 O2 Del Method 06/24/22 11:54 O2 Flow Rate 0.5 06/24/22 11:54 FiO2 35 06/14/22 12:00 Oxygen Flow Rate 35 06/13/22 21:00 BMI result Body Mass Index 34.9 Const: Other: General awake,aler t, ill-appearing,n o acute distress.? Dry chapped lips/ dry mucous membran es Neck no JVD. CV S? regular rate rh ythm,tachycardic R espiratory lungs c lear to auscultati on, no respiratory distress, no whee ze, no rhonchi. Ga strointestinal abd omen soft, mild te nderness left uppe r quadrant ,no gua rding, no rigidity , bowel sounds aud ible, stoma functi oning liquidy brow n stools in colost jean bag, 3 drains on left side with cloudy drainage. E xtremities no negar a. Neuro nonfocal Skin no rash Psych appropriate affec t Objective Data Active Medications Heparin Sodium (Porcine) 50 (units/ Sodium Chloride 5 ml) 0 units IVFLUSH TID [facility] Last Admin: 06/24/22 08:16 Dose: 50 unit Documented By: EDYTA Duloxetine HCl (Duloxetine Hcl 60 Mg Capsule.Dr) 60 mg PO BEDTIME [facility] Last Admin: 06/23/22 20:08 Dose: 60 mg Documented By: CASS Enoxaparin Sodium (Enoxaparin Sodium 40 Mg/0.4 Ml Syringe) 40 mg SUBCUT Q24H GAUDENCIO Last Admin: 06/24/22 10:57 Dose: 40 mg Documented By: EDYTA Gabapentin (Gabapentin 300 Mg Capsule) 300 mg PO BEDTIME [facility] Last Admin: 06/23/22 20:09 Dose: 300 mg Documented By: CASS Hydromorphone HCl (Hydromorphone Hcl 0.5 Mg/0.5 Ml Syringe) 0.5 mg IVPUSH Q4H PRN; Protocol PRN Reason: mild pain Last Admin: 06/24/22 05:27 Dose: 0.5 mg Documented By: CASS Voriconazole 400 mg/ Sodium (Chloride) 100 mls @ 50 mls/hr IV Q12H [facility] Stop: 06/24/22 23:59 Last Infusion: 06/24/22 13:29 Dose: 0 mls/hr Documented By: EDYTA Voriconazole 200 mg/ Sodium (Chloride) 100 mls @ 50 mls/hr IV Q12H GAUDENCIO Meropenem 1 gm/ Sodium (Chloride) 100 mls @ 200 mls/hr IV Q8H [facility] Last Infusion: 06/24/22 11:08 Dose: 0 mls/hr Documented By: EDYTA Acetaminophen (Ofirmev) 1,000 mg in 100 mls @ 400 mls/hr IV Q6H PRN PRN Reason: fever Stop: 06/24/22 22:59 Last Infusion: 06/24/22 11:35 Dose: 0 mls/hr Documented By: EDYTA Vancomycin HCl (Vancomycin/Ns) 2,000 mg in 520 mls @ 260 mls/hr IV ONCE ONE Stop: 06/24/22 16:59 Lactated Ringer's (Lr) 1,000 mls @ 100 mls/hr IVCONT .Q10H GAUDENCIO Metoclopramide HCl (Metoclopramide Hcl 10 Mg/2 Ml Vial) 5 mg IVPUSH Q6H [facility] Last Admin: 06/24/22 10:57 Dose: 5 mg Documented By: EDYTA Metoprolol Tartrate (Metoprolol Tartrate 25 Mg Tablet) 75 mg PO BID [facility]; Protocol Last Admin: 06/24/22 08:16 Dose: 75 mg Documented By: EDYTA Nystatin (Nystatin Powder 15 Gm Bottle) 1 appl TOPICAL BID [facility]; Protocol Last Admin: 06/24/22 10:58 Dose: Not Given Documented By: EDYTA Non-Admin Reason: Patient Refused Ondansetron HCl (Ondansetron Hcl 4 Mg/2 Ml Vial) 4 mg IVPUSH Q6H PRN PRN Reason: Nausea Last Admin: 06/24/22 12:23 Dose: 4 mg Documented By: EDYTA Oxycodone HCl (Oxycodone Hcl Immed Release 5 Mg Tablet) 5 mg PO Q4H PRN PRN Reason: Pain, Moderate (Pain Scale 4-6 Last Admin: 06/24/22 08:33 Dose: 5 mg Documented By: EDYTA Pharmacy Consult (Consult Rx Perform Med Rec) 1 each MISCELLANE ONCE PRN PRN Reason: Consult order Pharmacy Consult (Consult Rx Vancomycin Dosing) 1 each MISCELLANE DAILY PRN PRN Reason: Consult order Sodium Chloride (0.9 % Sodium Chloride Flush 3 Ml Syringe) 3 ml IVFLUSH QSHIFT [facility] Last Admin: 06/24/22 08:15 Dose: 3 ml Documented By: EDYTA Topiramate (Topiramate 100 Mg Tablet) 200 mg PO BID [facility] Last Admin: 06/24/22 08:15 Dose: 200 mg Documented By: EDYTA Labs CBC & Chem 7: 06/24/22 06:14 06/24/22 06:14 Labs: Laboratory Results - last 24 hr 06/23/22 06/23/22 06/23/22 11:32 18:00 19:40 MCV MCH MCHC RDW Plt Count MPV Absolute Nucleated RBC Nucleated RBC % (auto) Anion Gap Estim Creat Clear Calc Estimated GFR POC Glucose 122 H 141 H Random Glucose Estimat Average Glucose Hemoglobin A1c % Calcium Crossmatch See Detail 06/24/22 06/24/22 06/24/22 06:14 06:14 06:14 MCV 90.6 MCH 29.6 MCHC 32.7 RDW 17.4 H Plt Count 283 MPV 10.4 Absolute Nucleated RBC 0.000 Nucleated RBC % (auto) 0.0 Anion Gap 15 Estim Creat Clear Calc 115.9 Estimated GFR > 60 POC Glucose Random Glucose 115 Estimat Average Glucose 103 Hemoglobin A1c % 5.2 Calcium 8.4 Crossmatch 06/24/22 07:12 MCV MCH MCHC RDW Plt Count MPV Absolute Nucleated RBC Nucleated RBC % (auto) Anion Gap Estim Creat Clear Calc Estimated GFR POC Glucose 113 Random Glucose Estimat Average Glucose Hemoglobin A1c % Calcium Crossmatch Microbiology Microbiology Results: Microbiology 06/22/22 16:30 Gram Stain - Final Abdominal Fluid Routine Culture - Preliminary Culture in progress. Anaerobic Culture - Preliminary Culture in progress. Assessment and Plan (1) Leukocytosis: Status: Acute Plan 62-year-old woman admitted on 05/18/2022 for question of colitis/Crohn's flare.? She was subsequently seen again by Dr. Peralta and had a flexible sigmoidoscopy which showed a perforation with abscess.? She was taking to the OR for exploratory laparotomy with colostomy.? She had extensive fecal soilage in the peritoneum.? Was severely septic and sent to the ICU intubated.? She had a fairly rough course of the last several weeks developing multiple intra- abdominal abscesses, fevers.? Multiple drains placed in IR.? She was treated with Flagyl and meropenem.? She was started on TPN for nutrition.? She was subsequently extubated on 06/07/2022.? She was transition to tube feeds and then today transition to diet.? Sepsis Noted to have fever 103.5, tachycardia and significant leukocytosis likely abdominal source see below started pt. on IV meropenem, IV Voriconazole , id also recommend vancomycin Normal platelets and renal function Due to poor by mouth intake will give IV fluids, follow blood cultures cbc and clinical course If any decline in clinical condition Will consult ICU S/P Septic shock secondary to Perforated viscus with fecal peritonitis. Resolved Status post exploratory laparotomy with colostomy placement Treated with meropenem and Flagyl for approximately 3 weeks, antibiotics subsequently stopped Extubated 06/07/22, initially on TPN, transitioned to tube feeds, now on regular diet with supplement Underwent IR guided drainage on 06/22, 500 mL purulent fluid was removed , drain in place with persistent cloudy drainage Continue IV Dilaudid to 0.5 mg q.4 hours and oxycodone 5 mg q.4 hours Noted to have soft blood pressures will DC Zestril continue beta-blockers midline placed on 06/23 and Rt IJ catheter removed Recurrent toxic metabolic encephalopathy noted to have mild delirium by ID, now resolved likely due to fever. Acute on chronic normocytic anemia likely due to acute infection no acute blood loss noted s/p 1 unit of PRBC on 06/23 ,repeat hct improved Shortness of breath likely due to anemia lungs clear to auscultation improved, follow clinical course encourage incentive spirometry mild hypokalemia will replete and follow bmp Mental health Continue duloxetine and Topamax RESOLVED issues Toxic metabolic encephalopathy Secondary to septic shock from perforated viscus with intubation and infection, complicated course Resolved SABINE Resolved was likely secondary to septic shock, and hypovolemia Diabetes mellitus type 2 no history of diabetes mellitus likely high blood sugars related to IV fluids, hemoglobin A1c 5.2, blood sugar monitoring and insulin discontinued Acute respiratory failure.resolved Extubated 06/07/22 in ICU, DVT prophylaxis with Lovenox Full code Continue hospitalization since has sepsis related to abdominal infection on IV antibiotics, has tachycardia, leukocytosis, needs close monitoring,has high risk for decompensation Quality Stroke Does the patient have a stroke diagnosis?: No VTE Prior VTE?: No VTE Risk Level:: Medical - moderate - high VTE Device Contraindication: N/A - Device Ordered VTE Drug Contraindication: N/A - Med Ordered
[2022-06-24] MEDS: KCl 20 mEq in 5 % Dex/Lact Rin 20 MEQ/1,000 ML IV.SOLN 100 MEQ IVCONT (15:35)
--- NOTE | 2022-06-24 17:25 | PHA.PROG ---
Admission Date/Time: May 18, 2022 18:25 Indication: Sepsis Weight in k.3 kg Adjusted body weight in K.16 kg Marshall body weight in K.4 kg Obesity Dosing Indication % IBW: 170% Serum Creatinine - Last 168 Hours 06/18/22 06/19/22 06/20/22 05:35 06:11 14:13 Creatinine 0.60 0.62 0.60 06/21/22 06/23/22 06/24/22 06:53 06:07 06:14 Creatinine 0.59 0.54 0.54 Estimated CrCl and GFR - Last 168 Hours 06/18/22 06/19/22 06/20/22 05:35 06:11 14:13 Estim Creat Clear Calc 106.5 102.9 106.7 Estimated GFR > 60 > 60 > 60 06/21/22 06/23/22 06/24/22 06:53 06:07 06:14 Estim Creat Clear Calc 106.8 115.8 115.9 Estimated GFR > 60 > 60 > 60 Vancomycin Loading Dose: 2000 mg Current Vancomycin Dosing Regimen: 1250 mg Q12H Date and Time for next Vancomycin Level to be drawn: 06/25 @ 1400 Pharmacist Comments on Vancomycin Plan: Patient is morbidly obese therefore requires careful monitoring as vancomycin can be unpredictable in obese patients. Patient recieve loading dose vancomycin 2000 mg on 06/24 @ 1600. Will start maintenance dose 1250 mg Q12H 06/25 @ 0400. Excpected AUC 577 with a trough of 16.4. Random level to be drawn prior to 3rd dose so pharmacy can evaluate level prior to overnight. Pharmacy will monitor renal function daily. Karen Andrews PharmD Vancomycin dosing will take advantage of [employer] as a clinical decision support tool that uses Bayesian modeling to calculate individual patient's pharmacokinetic parameters and forecast the patient's drug concentration time course with the target goal AUC 24 range of 400 - 600 mg/L/hr.
[2022-06-24] MEDS: Gabapentin 300 MG CAPSULE PO (20:09)
[2022-06-24] MEDS: DULoxetine HCl 60 MG CAPSULE.DR PO (20:09)
[2022-06-24] MEDS: Nystatin Powder 15 GM BOTTLE 1 APPL TOPICAL (20:15)
[2022-06-25] VITALS (9 sets, daily range): BP systolic 116–133; BP diastolic 58–69; PULSE 102–134; RESP 15–20; TEMP 36.4–39.3; O2SAT 94–97; BMI 34.2
[2022-06-25] MEDS: Metoclopramide HCl 10 MG/2 ML VIAL 5 MG IVPUSH ×5 (00:45→22:55)
[2022-06-25] MEDS: Acetaminophen 325 MG TABLET 650 MG PO (04:30)
[2022-06-25] MEDS: vancomycin HCL 1,250 MG in 0.9 % Sodium Chloride 250 ML 166.67 MG IV (05:25)
[2022-06-25] MEDS: HYDROmorphone HCl 0.5 MG/0.5 ML SYRINGE IVPUSH ×4 (06:02→21:52)
[2022-06-25 07:49] LABS: Hematocrit 24.6 % (37.0-47.0); Hemoglobin 7.9 g/dl (12.0-16.0); Mean Corpuscular HGB Conc 32.1 g/dl (31.0-35.0); Mean Corpuscular Hemoglobin 29.4 pg (27.0-33.0); Mean Corpuscular Volume 91.4 fL (80.0-98.0); Mean Platelet Volume 10.3 fL (9.4-12.3); Platelet Count 251 X10*3/uL (160-400); Red Blood Count 2.69 X10*6/uL (4.20-5.50); Red Cell Distribution Width 17.8 % (11.0-16.0)
[2022-06-25 07:55] LABS: White Blood Count 30.5 X10*3/uL (4.8-10.8)
[2022-06-25 08:28] LABS: Alanine Aminotransferase 7 U/L (0-31); Albumin Level 2.6 g/dL (3.5-5.0); Alkaline Phosphatase 97 U/L (39-117); Anion Gap 14 (12-20); Aspartate Amino Transferase 7 U/L (5-31); Bilirubin Direct 0.3 mg/dL (0.0-0.5); Bilirubin Total 0.4 mg/dL (0.0-1.0); Blood Urea Nitrogen 12 mg/dL (9-16); Calcium 8.2 mg/dL (8.4-10.2); Carbon Dioxide 21 mmol/L (22-29); Chloride 105 mmol/L (96-108); Creatinine Clr Calc Pharmacy 116.9; Estimated Glomerular Filt Rate > 60; Glucose Random 108 mg/dL (60-115); Potassium 2.7 mmol/L (3.3-5.1); Sodium 137 mmol/L (135-145); Total Protein 5.3 g/dL (6.5-8.0)
[2022-06-25 08:40] LABS: C Reactive Protein 26.68 mg/dL (< or = 0.50)
[2022-06-25 08:46] LABS: Magnesium 1.6 mg/dL (1.6-2.6)
[2022-06-25] MEDS: Potassium Chloride ER 20 MEQ TAB.ER.PRT 40 MEQ PO (08:57)
[2022-06-25] MEDS: Heparin Sodium,Porcine Flush 50 UNITS, 0.9 % Sodium Chloride Flush 5 ML IVFLUSH ×3 (08:57→21:40)
[2022-06-25] MEDS: Metoprolol Tartrate 25 MG TABLET 75 MG PO ×2 (08:57→21:40)
[2022-06-25] MEDS: Topiramate 100 MG TABLET 200 MG PO ×2 (08:58→21:40)
[2022-06-25] MEDS: 0.9 % Sodium Chloride Flush 3 ML SYRINGE IVFLUSH ×3 (09:06→21:41)
[2022-06-25] MEDS: Potassium Chloride/H20 10 MEQ/100 ML PIGGYBACK 100 MEQ IV ×4 (09:06→14:55)
[2022-06-25] MEDS: Nystatin Powder 15 GM BOTTLE 1 APPL TOPICAL (09:06)
[2022-06-25 09:37] LABS: Procalcitonin 29.42 ng/mL
[2022-06-25] MEDS: Enoxaparin Sodium 40 MG/0.4 ML SYRINGE SUBCUT (11:05)
--- NOTE | 2022-06-25 11:13 | PM.GIPN ---
Subjective Subjective Date of Service: 06/25/22 Interval History: more alert and interactive today c/o not feeling right neurologically, vision (focusing) Critical Care Time (minutes): 0 Physical Exam Vital Signs: Vital Signs: Last Vital Signs Temp 97.5 F 06/25/22 07:48 Pulse 121 H 06/25/22 07:48 Resp 16 06/25/22 07:48 BP 118/64 06/25/22 07:48 Pulse Ox 97 06/25/22 07:48 O2 Del Method 06/25/22 07:48 O2 Flow Rate 0.5 06/25/22 07:48 FiO2 35 06/14/22 12:00 Oxygen Flow Rate 35 06/13/22 21:00 BMI result Body Mass Index 34.2 Const: General: cooperative GI: Other: abdomen is soft and nontender Extrem: Other: edema Objective Data Labs CBC & Chem 7: 06/25/22 06:39 06/25/22 06:39 Labs: Laboratory Results - last 24 hr 06/25/22 06/25/22 06/25/22 06:39 06:39 06:39 WBC 30.5 H* RBC 2.69 L Hgb 7.9 L Hct 24.6 L MCV 91.4 MCH 29.4 MCHC 32.1 RDW 17.8 H Plt Count 251 MPV 10.3 Absolute Nucleated RBC 0.000 Nucleated RBC % (auto) 0.0 Sodium 137 Potassium 2.7 L Chloride 105 Carbon Dioxide 21 L Anion Gap 14 BUN 12 Creatinine 0.53 Estim Creat Clear Calc 116.9 Estimated GFR > 60 Random Glucose 108 Calcium 8.2 L Magnesium 1.6 Total Bilirubin 0.4 Direct Bilirubin 0.3 AST 7 D ALT 7 Alkaline Phosphatase 97 D C-Reactive Protein 26.68 H Total Protein 5.3 L Albumin 2.6 L Procalcitonin 29.42 Microbiology Microbiology Results: Microbiology 06/22/22 16:30 Abdominal Fluid Gram Stain - Final 06/22/22 16:30 Abdominal Fluid Routine Culture - Preliminary Culture in progress. 06/22/22 16:30 Abdominal Fluid Anaerobic Culture - Preliminary Culture in progress. 06/24/22 06:14 Blood - Venous Blood Culture - Preliminary No growth after 24 hours. 06/24/22 06:14 Blood - Venous Blood Culture - Preliminary No growth after 24 hours. 06/02/22 Unknown Abscess Intra-abdominal Fungal Identification - Preliminary Verónica dubliniensis 06/03/22 15:28 Blood - Subclavian Blood Culture - Final No growth after 5 days. 06/03/22 06:15 Blood - Venous Blood Culture - Final No growth after 5 days. 06/03/22 06:15 Blood - Venous Blood Culture - Final No growth after 5 days. 06/02/22 Unknown Peritoneal Fluid Gram Stain - Final 06/02/22 Unknown Peritoneal Fluid Routine Culture - Final Verónica albicans 06/02/22 Unknown Peritoneal Fluid Anaerobic Culture - Final 05/29/22 15:14 Blood - Venous Blood Culture - Final No growth after 5 days. 05/29/22 15:13 Blood - Venous Blood Culture - Final No growth after 5 days. 05/29/22 05:14 Blood - Venous Blood Culture - Final No growth after 5 days. 05/29/22 05:14 Blood - Venous Blood Culture - Final No growth after 5 days. 06/02/22 Unknown Abscess Intra-abdominal Gram Stain - Final 06/02/22 Unknown Abscess Intra-abdominal Routine Culture - Final 06/02/22 Unknown Abscess Intra-abdominal Anaerobic Culture - Final 06/02/22 Unknown Abscess Intra-abdominal Gram Stain - Final 06/02/22 Unknown Abscess Intra-abdominal Routine Culture - Final 05/28/22 Unknown Peritoneal Fluid Gram Stain - Final 05/28/22 Unknown Peritoneal Fluid Anaerobic Culture - Final 05/28/22 Unknown Peritoneal Fluid Body Fluid Culture - Final Verónica dubliniensis 05/29/22 15:05 Sputum - Suctioned Gram Stain - Final 05/29/22 15:05 Sputum - Suctioned Sputum Culture - Final Verónica dubliniensis 05/28/22 16:47 Sputum - Suctioned Gram Stain - Final 05/28/22 16:47 Sputum - Suctioned Sputum Culture - Final Verónica albicans 05/23/22 Unknown Peritoneal Fluid Gram Stain - Final 05/23/22 Unknown Peritoneal Fluid Routine Culture - Final Escherichia coli 05/23/22 Unknown Peritoneal Fluid Anaerobic Culture - Final Clostridium perfringens Bacteroides thetaiotaomicron 05/19/22 08:49 Blood - Venous Blood Culture - Final No growth after 5 days. 05/19/22 08:49 Blood - Venous Blood Culture - Final No growth after 5 days. Procedures Date of Service Date of Service: 06/25/22 Arterial Line Size (Gauge): 16 Progress Note: A&P Assessment and plan (1) Perforated viscus: Status: Acute Assessment and Plan: consider neuro eval continue supportive care. Time Spent With Patient Time: Total time spent is greater than 50% in coordination of care (as documented) at patient's floor/unit and/or counseling patient: Quality Stroke Does the patient have a stroke diagnosis?: No VTE Prior VTE?: No VTE Risk Level:: Medical - moderate - high VTE Device Contraindication: N/A - Device Ordered VTE Drug Contraindication: N/A - Med Ordered
--- NOTE | 2022-06-25 11:59 | P.PNGS_ITS ---
Subjective Subjective Date of Service: 06/27/22 Interval history: more alert this morning some pain on IR drain site oral intake still poor still had fever overnight stoma functioning Physical Exam Vital Signs: Vital Signs: Last Vital Signs Temp 97.5 F 06/25/22 07:48 Pulse 121 H 06/25/22 07:48 Resp 16 06/25/22 07:48 BP 118/64 06/25/22 07:48 Pulse Ox 97 06/25/22 07:48 O2 Del Method 06/25/22 07:48 O2 Flow Rate 0.5 06/25/22 07:48 FiO2 35 06/14/22 12:00 Oxygen Flow Rate 35 06/13/22 21:00 BMI result Body Mass Index 34.2 Const: Other: conversant, some SOB as baseline Resp: Other: some SOB Cardio: Rate: tachycardic GI: Other: soft, no guarding, not distended, stoma with output, drains in place, not much output but purulent especially from latest IR drain Palpation (GI): Soft to palpation Objective Data Active Medications Heparin Sodium (Porcine) 50 (units/ Sodium Chloride 5 ml) 0 units IVFLUSH TID [facility] Last Admin: 06/25/22 08:57 Dose: 50 unit Documented By: EDYTA Duloxetine HCl (Duloxetine Hcl 60 Mg Capsule.) 60 mg PO BEDTIME [facility] Last Admin: 06/24/22 20:09 Dose: 60 mg Documented By: NYA Enoxaparin Sodium (Enoxaparin Sodium 40 Mg/0.4 Ml Syringe) 40 mg SUBCUT Q24H [facility] Last Admin: 06/25/22 11:05 Dose: 40 mg Documented By: EDYTA Gabapentin (Gabapentin 300 Mg Capsule) 300 mg PO BEDTIME [facility] Last Admin: 06/24/22 20:09 Dose: 300 mg Documented By: NYA Hydromorphone HCl (Hydromorphone Hcl 0.5 Mg/0.5 Ml Syringe) 0.5 mg IVPUSH Q4H PRN; Protocol PRN Reason: mild pain Last Admin: 06/25/22 11:05 Dose: 0.5 mg Documented By: EDYTA Voriconazole 200 mg/ Sodium (Chloride) 100 mls @ 50 mls/hr IV Q12H [facility] Meropenem 1 gm/ Sodium (Chloride) 100 mls @ 200 mls/hr IV Q8H [facility] Last Infusion: 06/25/22 05:07 Dose: 0 mls/hr Documented By: NIKOLE Potassium Cl/Dextrose/Lact Ringer's (Kcl 20 Meq In 5 % Dex/Lact Rin) 20 meq in 1,000 mls @ 100 mls/hr IVCONT .Q10H [facility] Last Admin: 06/25/22 03:21 Dose: Not Given Documented By: NIKOLE Non-Admin Reason: IV Running Vancomycin HCl 1,250 mg/ (Sodium Chloride) 250 mls @ 166.667 mls/hr IV Q12H [facility] Last Infusion: 06/25/22 07:32 Dose: 0 mls/hr Documented By: EDYTA Potassium Chloride (Potassium Chloride/H20) 10 meq in 100 mls @ 100 mls/hr IV Q1H [facility] Stop: 06/25/22 12:29 Last Admin: 06/25/22 11:03 Dose: 100 mls/hr Documented By: EDYTA Metoclopramide HCl (Metoclopramide Hcl 10 Mg/2 Ml Vial) 5 mg IVPUSH Q6H [facility] Last Admin: 06/25/22 07:09 Dose: 5 mg Documented By: NIKOLE Metoprolol Tartrate (Metoprolol Tartrate 25 Mg Tablet) 75 mg PO BID [facility]; Protocol Last Admin: 06/25/22 08:57 Dose: 75 mg Documented By: EDYTA Nystatin (Nystatin Powder 15 Gm Bottle) 1 appl TOPICAL BID [facility]; Protocol Last Admin: 06/25/22 09:06 Dose: 1 appl Documented By: EDYTA Ondansetron HCl (Ondansetron Hcl 4 Mg/2 Ml Vial) 4 mg IVPUSH Q6H PRN PRN Reason: Nausea Last Admin: 06/24/22 12:23 Dose: 4 mg Documented By: EDYTA Oxycodone HCl (Oxycodone Hcl Immed Release 5 Mg Tablet) 5 mg PO Q4H PRN PRN Reason: Pain, Moderate (Pain Scale 4-6 Last Admin: 06/24/22 20:10 Dose: 5 mg Documented By: NYA Pharmacy Consult (Consult Rx Perform Med Rec) 1 each MISCELLANE ONCE PRN PRN Reason: Consult order Pharmacy Consult (Consult Rx Vancomycin Dosing) 1 each MISCELLANE DAILY PRN PRN Reason: Consult order Sodium Chloride (0.9 % Sodium Chloride Flush 3 Ml Syringe) 3 ml IVFLUSH QSHIFT [facility] Last Admin: 06/25/22 09:06 Dose: 3 ml Documented By: EDYTA Topiramate (Topiramate 100 Mg Tablet) 200 mg PO BID [facility] Last Admin: 06/25/22 08:58 Dose: 200 mg Documented By: EDYTA Labs CBC & Chem 7: 06/27/22 05:59 06/27/22 05:59 Labs: Laboratory Results - last 24 hr 06/25/22 06/25/22 06/25/22 06:39 06:39 06:39 MCV 91.4 MCH 29.4 MCHC 32.1 RDW 17.8 H Plt Count 251 MPV 10.3 Absolute Nucleated RBC 0.000 Nucleated RBC % (auto) 0.0 Anion Gap 14 Estim Creat Clear Calc 116.9 Estimated GFR > 60 Random Glucose 108 Calcium 8.2 L Magnesium 1.6 Total Bilirubin 0.4 Direct Bilirubin 0.3 AST 7 D ALT 7 Alkaline Phosphatase 97 D C-Reactive Protein 26.68 H Total Protein 5.3 L Albumin 2.6 L Procalcitonin 29.42 Microbiology Microbiology Results: Microbiology 06/22/22 16:30 Gram Stain - Final Abdominal Fluid Routine Culture - Preliminary Culture in progress. Anaerobic Culture - Preliminary Culture in progress. 06/24/22 06:14 Blood Culture - Preliminary Blood - Venous No growth after 24 hours. 06/24/22 06:14 Blood Culture - Preliminary Blood - Venous No growth after 24 hours. Procedures Date of Service Date of Service: 06/25/22 Arterial Line Size (Gauge): 16 Progress Note: A&P Assessment and plan (1) Status post colostomy: Status: Acute Assessment and Plan: stoma functioning still having fever and leukocytosis abscess seems adequately drained restart coverage with for meropenem, antifungal consider other sources as well - abdominal exam benign, soft instructed on incentive spirometry - she actually did very well with this at bedside push PO intake Time Spent With Patient Time: Total time spent is greater than 50% in coordination of care (as documented) at patient's floor/unit and/or counseling patient: Quality Stroke Does the patient have a stroke diagnosis?: No VTE Prior VTE?: No VTE Risk Level:: Medical - moderate - high VTE Device Contraindication: N/A - Device Ordered VTE Drug Contraindication: N/A - Med Ordered
[2022-06-25] MEDS: ondansetron HCL 4 MG/2 ML VIAL IVPUSH (13:10)
[2022-06-25] MEDS: oxyCODONE HCl Immed Release 5 MG TABLET PO (13:11)
[2022-06-25] MEDS: Voriconazole 200 MG in 0.9 % Sodium Chloride 100 ML 50 MG IV ×2 (13:11→21:53)
--- NOTE | 2022-06-25 14:31 | P.PNIM_ITS ---
Subjective Subjective Date of Service: 06/25/22 Interval History: febrile to 102.8 @ 0349 last night no abd pain poor appetite c/o migraine BELL Physical Exam Vital Signs: Vital Signs: Last Vital Signs Temp 97.9 F 06/25/22 11:59 Pulse 102 H 06/25/22 11:59 Resp 20 06/25/22 11:59 BP 116/58 L 06/25/22 11:59 Pulse Ox 97 06/25/22 11:59 O2 Del Method 06/25/22 11:59 O2 Flow Rate 0.5 06/25/22 11:59 FiO2 35 06/14/22 12:00 Oxygen Flow Rate 35 06/13/22 21:00 BMI result Body Mass Index 34.2 Gen: ill-appearing but no acute distress HEENT: sclera anicteric, moist mucus membranes Neck: supple Lungs: clear to auscultation bilaterally Heart: regular, tachycardic, no murmurs Abd: soft, stoma with stool, non-tender, IR drains with scant purulent liquid Ext: no edema Skin: warm/well-perfused Neuro: alert and oriented x3, no focal findings Psych: appropriate affect Objective Data Active Medications Heparin Sodium (Porcine) 50 (units/ Sodium Chloride 5 ml) 0 units IVFLUSH TID [facility] Last Admin: 06/25/22 08:57 Dose: 50 unit Documented By: EDYTA Duloxetine HCl (Duloxetine Hcl 60 Mg Capsule.) 60 mg PO BEDTIME [facility] Last Admin: 06/24/22 20:09 Dose: 60 mg Documented By: NYA Enoxaparin Sodium (Enoxaparin Sodium 40 Mg/0.4 Ml Syringe) 40 mg SUBCUT Q24H [facility] Last Admin: 06/25/22 11:05 Dose: 40 mg Documented By: EDYTA Gabapentin (Gabapentin 300 Mg Capsule) 300 mg PO BEDTIME [facility] Last Admin: 06/24/22 20:09 Dose: 300 mg Documented By: NYA Hydromorphone HCl (Hydromorphone Hcl 0.5 Mg/0.5 Ml Syringe) 0.5 mg IVPUSH Q4H PRN; Protocol PRN Reason: mild pain Last Admin: 06/25/22 11:05 Dose: 0.5 mg Documented By: EDYTA Voriconazole 200 mg/ Sodium (Chloride) 100 mls @ 50 mls/hr IV Q12H [facility] Last Admin: 06/25/22 13:11 Dose: 50 mls/hr Documented By: EDYTA Meropenem 1 gm/ Sodium (Chloride) 100 mls @ 200 mls/hr IV Q8H [facility] Last Infusion: 06/25/22 13:05 Dose: 0 mls/hr Documented By: EDYTA Potassium Cl/Dextrose/Lact Ringer's (Kcl 20 Meq In 5 % Dex/Lact Rin) 20 meq in 1,000 mls @ 100 mls/hr IVCONT .Q10H [facility] Last Infusion: 06/25/22 13:54 Dose: 0 mls/hr Documented By: EDYTA Vancomycin HCl 1,250 mg/ (Sodium Chloride) 250 mls @ 166.667 mls/hr IV Q12H [facility] Last Infusion: 06/25/22 07:32 Dose: 0 mls/hr Documented By: EDYTA Metoclopramide HCl (Metoclopramide Hcl 10 Mg/2 Ml Vial) 5 mg IVPUSH Q6H [facility] Last Admin: 06/25/22 12:22 Dose: 5 mg Documented By: EDYTA Metoprolol Tartrate (Metoprolol Tartrate 25 Mg Tablet) 75 mg PO BID [facility]; Protocol Last Admin: 06/25/22 08:57 Dose: 75 mg Documented By: EDYTA Nystatin (Nystatin Powder 15 Gm Bottle) 1 appl TOPICAL BID [facility]; Protocol Last Admin: 06/25/22 09:06 Dose: 1 appl Documented By: EDYTA Ondansetron HCl (Ondansetron Hcl 4 Mg/2 Ml Vial) 4 mg IVPUSH Q6H PRN PRN Reason: Nausea Last Admin: 06/25/22 13:10 Dose: 4 mg Documented By: EDYTA Oxycodone HCl (Oxycodone Hcl Immed Release 5 Mg Tablet) 5 mg PO Q4H PRN PRN Reason: Pain, Moderate (Pain Scale 4-6 Last Admin: 06/25/22 13:11 Dose: 5 mg Documented By: EDYTA Pharmacy Consult (Consult Rx Perform Med Rec) 1 each MISCELLANE ONCE PRN PRN Reason: Consult order Pharmacy Consult (Consult Rx Vancomycin Dosing) 1 each MISCELLANE DAILY PRN PRN Reason: Consult order Sodium Chloride (0.9 % Sodium Chloride Flush 3 Ml Syringe) 3 ml IVFLUSH QSHIFT [facility] Last Admin: 06/25/22 09:06 Dose: 3 ml Documented By: EDYTA Sumatriptan Succinate (Sumatriptan Succinate 6 Mg/0.5 Ml Vial) 6 mg SUBCUT ONCE ONE Stop: 06/25/22 14:31 Topiramate (Topiramate 100 Mg Tablet) 200 mg PO BID [facility] Last Admin: 06/25/22 08:58 Dose: 200 mg Documented By: EDYTA Labs CBC & Chem 7: 06/25/22 06:39 06/25/22 06:39 Labs: Laboratory Results - last 24 hr 06/25/22 06/25/22 06/25/22 06:39 06:39 06:39 MCV 91.4 MCH 29.4 MCHC 32.1 RDW 17.8 H Plt Count 251 MPV 10.3 Absolute Nucleated RBC 0.000 Nucleated RBC % (auto) 0.0 Anion Gap 14 Estim Creat Clear Calc 116.9 Estimated GFR > 60 Random Glucose 108 Calcium 8.2 L Magnesium 1.6 Total Bilirubin 0.4 Direct Bilirubin 0.3 AST 7 D ALT 7 Alkaline Phosphatase 97 D C-Reactive Protein 26.68 H Total Protein 5.3 L Albumin 2.6 L Procalcitonin 29.42 Microbiology Microbiology Results: Microbiology 06/22/22 16:30 Gram Stain - Final Abdominal Fluid Routine Culture - Preliminary Culture in progress. Anaerobic Culture - Preliminary Culture in progress. 06/24/22 06:14 Blood Culture - Preliminary Blood - Venous No growth after 24 hours. 06/24/22 06:14 Blood Culture - Preliminary Blood - Venous No growth after 24 hours. Assessment and Plan (1) Leukocytosis: Status: Acute Plan d#[id number] 62yo F admitted 05/18/22 with colitis/Crohn's flare. Flex sig showed perforation with abscess; taken to OR for ex-lap with colostomy after found to have extensive fecal soilage in peritoneum. Severely septic, sent to ICU intubated. Course since then complicated by multiple intra-abdominal abscesses causing fevers, with multiple drains placed by IR. Treated with metronidazole + meropenem and given TPN. Extubated 06/07/22, transitioned to tube feeds and then to oral diet. # sepsis with persistent fever - likely abdominal source, drained - IV meropenem, vancomycin, and voriconazole as per ID consultation - follow blood and IR drain cultures- no growth to date - encourage IS # septic shock secondary to perforated viscus with fecal peritonitis - s/p ex-lap/colostomy - got 3 wk of meropenem + metronidazole, ABX then stopped - extubated 06/07/22, given TPN, transitioned to tube feeds, then to oral feeds - latest IR-guided drainage on 06/22 with removal of 500 mL of purulent fluid - opioids for pain control - midline catheter placed 06/23/22 # hypoK - replete IV/PO, recheck in AM # migraines - trial of SQ sumatripan # recurrent toxic-metabolic encephalopathy - resolved, was likely due to fever # acute/chronic normocytic anemia - likely due to inflammation, no acute blood loss noted; given 1u pRBCs on 06/23/22 # SABINE due to septic shock/hypovolemia - resolved # hyperglycemia - due to critical illness; resolved # acute respiratory failure - extubated in ICU 06/07/22 # VTE ppx: LMWH # dispo: will need rehab In my clinical judgment, the patient requires continued hospitalization for the following reasons: fever, sepsis Quality Stroke Does the patient have a stroke diagnosis?: No VTE Prior VTE?: No VTE Risk Level:: Medical - moderate - high VTE Device Contraindication: N/A - Device Ordered VTE Drug Contraindication: N/A - Med Ordered
[2022-06-25 14:40] LABS: Vancomycin Random 17.8 mcg/mL (15-20)
--- NOTE | 2022-06-25 14:48 | HE.PHANOTE ---
Vancomycin Dosing Addendum Random level was 17.8 today after loading dose + one maintenance dose. Will decrease dose to 1000 mg Q12H. New expected AUC 453 with a trough of 12.6. Next level will be drawn in 24 hours on 06/26 @ 1400. Hernandez ShipmanD
[2022-06-25] MEDS: vancomycin HCL 1,000 MG in 0.9 % Sodium Chloride 250 ML 270 MG IV (16:22)
[2022-06-25] MEDS: SUMAtriptan succinate 6 MG/0.5 ML VIAL SUBCUT (17:30)
[2022-06-25] MEDS: DULoxetine HCl 60 MG CAPSULE.DR PO (21:40)
[2022-06-25] MEDS: Gabapentin 300 MG CAPSULE PO (21:40)
[2022-06-25] MEDS: Alteplase Cath Clear 2 MG VIAL INTRACATH (21:53)
[2022-06-26] MEDS: KCl 20 mEq in 5 % Dex/Lact Rin 20 MEQ/1,000 ML IV.SOLN 100 MEQ IVCONT ×2 (00:54→10:01)
[2022-06-26] MEDS: vancomycin HCL 1,000 MG in 0.9 % Sodium Chloride 250 ML 270 MG IV ×2 (03:25→16:03)
[2022-06-26 04:00] VITALS: BP 131/67; PULSE 89; RESP 20; TEMP 38; O2SAT 95
[2022-06-26] MEDS: Metoclopramide HCl 10 MG/2 ML VIAL 5 MG IVPUSH ×3 (04:41→18:12)
[2022-06-26 05:09] VITALS: BMI 34.3
[2022-06-26 06:41] LABS: Hematocrit 24.6 % (37.0-47.0); Hemoglobin 7.9 g/dl (12.0-16.0); Mean Corpuscular HGB Conc 32.1 g/dl (31.0-35.0); Mean Corpuscular Hemoglobin 29.5 pg (27.0-33.0); Mean Corpuscular Volume 91.8 fL (80.0-98.0); Mean Platelet Volume 10.2 fL (9.4-12.3); Platelet Count 248 X10*3/uL (160-400); Red Blood Count 2.68 X10*6/uL (4.20-5.50); Red Cell Distribution Width 17.9 % (11.0-16.0)
[2022-06-26 07:04] VITALS: BP 129/69; PULSE 119; RESP 17; TEMP 37.8; O2SAT 95
[2022-06-26 07:12] LABS: Alanine Aminotransferase 7 U/L (0-31); Albumin Level 2.4 g/dL (3.5-5.0); Alkaline Phosphatase 101 U/L (39-117); Anion Gap 13 (12-20); Aspartate Amino Transferase 8 U/L (5-31); Bilirubin Total 0.4 mg/dL (0.0-1.0); Blood Urea Nitrogen 12 mg/dL (9-16); Calcium 8.1 mg/dL (8.4-10.2); Carbon Dioxide 21 mmol/L (22-29); Chloride 109 mmol/L (96-108); Creatinine Clr Calc Pharmacy 132.1; Estimated Glomerular Filt Rate > 60; Glucose Random 106 mg/dL (60-115); Potassium 3.5 mmol/L (3.3-5.1); Sodium 139 mmol/L (135-145); Total Protein 4.9 g/dL (6.5-8.0)
[2022-06-26] MEDS: Voriconazole 200 MG in 0.9 % Sodium Chloride 100 ML 50 MG IV ×2 (09:56→21:56)
[2022-06-26] MEDS: 0.9 % Sodium Chloride Flush 3 ML SYRINGE IVFLUSH ×2 (09:56→16:08)
[2022-06-26] MEDS: Enoxaparin Sodium 40 MG/0.4 ML SYRINGE SUBCUT (09:57)
[2022-06-26] MEDS: Metoprolol Tartrate 25 MG TABLET 75 MG PO (09:58)
[2022-06-26] MEDS: Topiramate 100 MG TABLET 200 MG PO ×2 (09:58→21:53)
[2022-06-26] MEDS: Nystatin Powder 15 GM BOTTLE 1 APPL TOPICAL ×2 (09:59→21:56)
[2022-06-26] MEDS: HYDROmorphone HCl 0.5 MG/0.5 ML SYRINGE IVPUSH ×4 (10:05→22:28)
--- NOTE | 2022-06-26 10:19 | PM.PNGS ---
Subjective Subjective Date of Service: 06/28/22 Interval history: fever pattern seems better some crampy pain the abdomen stoma functioning well says she is taking Ensure Physical Exam Vital Signs: Vital Signs: Last Vital Signs Temp 100.0 F 06/26/22 07:04 Pulse 119 H 06/26/22 07:04 Resp 17 06/26/22 07:04 BP 129/69 06/26/22 07:04 Pulse Ox 95 06/26/22 07:04 O2 Del Method 06/26/22 07:04 O2 Flow Rate 1 06/26/22 07:04 FiO2 35 06/14/22 12:00 Oxygen Flow Rate 35 06/13/22 21:00 BMI result Body Mass Index 34.3 Const: Other: conversant, alert Resp: Other: mild shortness of breath Cardio: Rate: tachycardic GI: Other: soft, nondistended, no guarding, no rebound, stoma functioning well with good output, NOHEMI drains x2 with scanty purulent output, 3rd drain by gravity, also with purulent output also scanty Objective Data Active Medications Heparin Sodium (Porcine) 50 (units/ Sodium Chloride 5 ml) 0 units IVFLUSH TID [facility] Last Admin: 06/26/22 10:01 Dose: Not Given Documented By: ASHLEY Non-Admin Reason: unable to flush. made aware Duloxetine HCl (Duloxetine Hcl 60 Mg Capsule.) 60 mg PO BEDTIME [facility] Last Admin: 06/25/22 21:40 Dose: 60 mg Documented By: HECTOR Enoxaparin Sodium (Enoxaparin Sodium 40 Mg/0.4 Ml Syringe) 40 mg SUBCUT Q24H [facility] Last Admin: 06/26/22 09:57 Dose: 40 mg Documented By: ASHLEY Gabapentin (Gabapentin 300 Mg Capsule) 300 mg PO BEDTIME [facility] Last Admin: 06/25/22 21:40 Dose: 300 mg Documented By: HECTOR Hydromorphone HCl (Hydromorphone Hcl 0.5 Mg/0.5 Ml Syringe) 0.5 mg IVPUSH Q4H PRN; Protocol PRN Reason: mild pain Last Admin: 06/26/22 10:05 Dose: 0.5 mg Documented By: ASHLEY Voriconazole 200 mg/ Sodium (Chloride) 100 mls @ 50 mls/hr IV Q12H [facility] Last Admin: 06/26/22 09:56 Dose: 50 mls/hr Documented By: ASHLEY Meropenem 1 gm/ Sodium (Chloride) 100 mls @ 200 mls/hr IV Q8H [facility] Last Admin: 06/26/22 09:52 Dose: 200 mls/hr Documented By: ASHLEY Potassium Cl/Dextrose/Lact Ringer's (Kcl 20 Meq In 5 % Dex/Lact Rin) 20 meq in 1,000 mls @ 100 mls/hr IVCONT .Q10H [facility] Last Admin: 06/26/22 10:01 Dose: 100 mls/hr Documented By: ASHLEY Vancomycin HCl 1,000 mg/ (Sodium Chloride) 270 mls @ 270 mls/hr IV Q12H [facility] Last Infusion: 06/26/22 04:34 Dose: 270 mls/hr Documented By: HECTOR Metoclopramide HCl (Metoclopramide Hcl 10 Mg/2 Ml Vial) 5 mg IVPUSH Q6H [facility] Last Admin: 06/26/22 04:41 Dose: 5 mg Documented By: HECTOR Metoprolol Tartrate (Metoprolol Tartrate 25 Mg Tablet) 75 mg PO BID [facility]; Protocol Last Admin: 06/26/22 09:58 Dose: 75 mg Documented By: ASHLEY Nystatin (Nystatin Powder 15 Gm Bottle) 1 appl TOPICAL BID [facility]; Protocol Last Admin: 06/26/22 09:59 Dose: 1 appl Documented By: ASHLEY Ondansetron HCl (Ondansetron Hcl 4 Mg/2 Ml Vial) 4 mg IVPUSH Q6H PRN PRN Reason: Nausea Last Admin: 06/25/22 13:10 Dose: 4 mg Documented By: EDYTA Oxycodone HCl (Oxycodone Hcl Immed Release 5 Mg Tablet) 5 mg PO Q4H PRN PRN Reason: Pain, Moderate (Pain Scale 4-6 Last Admin: 06/25/22 13:11 Dose: 5 mg Documented By: EDYTA Pharmacy Consult (Consult Rx Perform Med Rec) 1 each MISCELLANE ONCE PRN PRN Reason: Consult order Pharmacy Consult (Consult Rx Vancomycin Dosing) 1 each MISCELLANE DAILY PRN PRN Reason: Consult order Sodium Chloride (0.9 % Sodium Chloride Flush 3 Ml Syringe) 3 ml IVFLUSH QSHIFT [facility] Last Admin: 06/26/22 09:56 Dose: 3 ml Documented By: ASHLEY Topiramate (Topiramate 100 Mg Tablet) 200 mg PO BID [facility] Last Admin: 06/26/22 09:58 Dose: 200 mg Documented By: ASHLEY Labs CBC & Chem 7: 06/27/22 05:59 06/28/22 06:44 Labs: Laboratory Results - last 24 hr 06/25/22 06/26/22 06/26/22 14:14 05:53 05:53 MCV 91.8 MCH 29.5 MCHC 32.1 RDW 17.9 H Plt Count 248 MPV 10.2 Absolute Nucleated RBC 0.000 Nucleated RBC % (auto) 0.0 Anion Gap 13 Estim Creat Clear Calc 132.1 Estimated GFR > 60 Random Glucose 106 Calcium 8.1 L Total Bilirubin 0.4 AST 8 ALT 7 Alkaline Phosphatase 101 Total Protein 4.9 L Albumin 2.4 L Random Vancomycin 17.8 Microbiology Microbiology Results: Microbiology 06/24/22 06:14 Blood Culture - Preliminary Blood - Venous No growth after 48 hours. 06/24/22 06:14 Blood Culture - Preliminary Blood - Venous No growth after 48 hours. 06/22/22 16:30 Gram Stain - Final Abdominal Fluid Routine Culture - Preliminary Culture in progress. Anaerobic Culture - Preliminary Culture in progress. Procedures Date of Service Date of Service: 06/28/22 Arterial Line Size (Gauge): 16 Progress Note: A&P Assessment and plan (1) Status post colostomy: Status: Acute Assessment and Plan: looks more comfortable this morning fever pattern seems to have improved overnight WBC down abdomen remained soft with good function encouraged oral intake out of bed to recliner instructed on incentive spirometry on meropenem and antifungal Time Spent With Patient Time: Total time spent is greater than 50% in coordination of care (as documented) at patient's floor/unit and/or counseling patient: Quality Stroke Does the patient have a stroke diagnosis?: No VTE Prior VTE?: No VTE Risk Level:: Medical - moderate - high VTE Device Contraindication: N/A - Device Ordered VTE Drug Contraindication: N/A - Med Ordered
[2022-06-26 11:01] VITALS: BP 135/76; PULSE 110; RESP 16; TEMP 37.8
[2022-06-26 11:15] VITALS: BP 135/76; PULSE 110
--- NOTE | 2022-06-26 12:05 | MHC.CLN ---
Addendum entered by Pavithra Grider, PK 06/26/22 12:17: PT REPORTED DISLIKES [facility] WILL REMOVE MAGIC CUP CONTINUE ENSURE PT IS DRINKING ([facility] ONLY) FOOD PREFERENCES SENT TO [facility] AND UPDATED PT REQUESTING HALF PORTIONS WITH MEALS Original Note: F/U PO INTAKE 25-50% DIET RX: REGULAR-APPROPRIATE PT RECEPTIVE TO DRINKING ENSURE [facility] TID AND MAGIC CUP TRIAL TO INCREASE KCALS ENSURE SUPP PROVIDES 1050KCALS, 60G PROTEIN AND MAGIC CUP PROVIDES 870KCALS, 27G PROTEIN WITH 100% ACCEPTANCE CONTINUE TO MONITOR PO INTAKE CLOSELY
--- NOTE | 2022-06-26 12:08 | MHC.SL.SWA ---
Speech Pathologist Impression: Oropharyngeal dysphagia Risk of Aspiration Due to: Medically Fragile Hx of Recent Extubation Weak Cough Dysphasia Diet Status: No Change Liquid Consistency and Strategies for Safe Swallow: Liquid Intake Recommendation: Thin Liquid Intake Strategies: Small Sips No Straws Solid Food Consistency: Dietary Recommendations: Regular Additional Modifications to Solid Foods:Recommend continue w/ REGULAR solids and THIN liquids, pills whole or crushed in puree. Further ST intervention no longer warranted. Please re-refer if there are any changes or further concern. Oral Medication Intake: Whole with Puree Please contact the pharmacy regarding appropriate crushable or liquid drug formulations that are available whenever modified delivery is recommended. Compensatory Strategies and Precautions to be Taken for Safe Swallow: Sitting Upright (90 deg) No Straw Liquids from Cup Liquids from Spoon Small Bites and Sips Alternate Liquids/Solids Rate of Ingestion Change Oral Check Avoid Specific Foods Supervision While Eating and Drinking for Safe Swallow: Intermittent Supervision Foods to Avoid: Hard, difficult to chew solids; dry or sticky foods Recommendation for Speech: D/C Bar Useful Or Busser Clinican/Clinical Fellow: No Supervisory Statement: I have reviewed and agree with the student/clinical fellow's documentation: N/A Speech Language Pathologist: Majo Grissom M.A., CCC-CRYPTOZOOLOGIST
--- NOTE | 2022-06-26 12:09 | P.PNIM_ITS ---
Subjective Subjective Date of Service: 06/26/22 Interval History: fever improved- Tmax 100.4 @ 0400 midline clotted; attempted Cathflo without success some cramping of abd but tolerating diet Review of Systems Review of Systems: Yes all other systems are reviewed and are negative Physical Exam Vital Signs: Vital Signs: Last Vital Signs Temp 100.0 F 06/26/22 11:01 Pulse 110 H 06/26/22 11:15 Resp 16 06/26/22 11:01 BP 135/76 06/26/22 11:15 Pulse Ox 95 06/26/22 07:04 O2 Del Method 06/26/22 11:01 O2 Flow Rate 2 06/26/22 11:01 FiO2 35 06/14/22 12:00 Oxygen Flow Rate 35 06/13/22 21:00 BMI result Body Mass Index 34.3 Gen: ill-appearing but no acute distress HEENT: sclera anicteric, moist mucus membranes Neck: supple Lungs: clear to auscultation bilaterally Heart: regular, tachycardic, no murmurs Abd: soft, stoma with stool, non-tender, IR drains x3 with scant purulent liquid Ext: no edema Skin: warm/well-perfused Neuro: alert and oriented x3, no focal findings Psych: appropriate affect Objective Data Active Medications Heparin Sodium (Porcine) 50 (units/ Sodium Chloride 5 ml) 0 units IVFLUSH TID [facility] Last Admin: 06/26/22 10:01 Dose: Not Given Documented By: ASHLEY Non-Admin Reason: unable to flush. made aware Duloxetine HCl (Duloxetine Hcl 60 Mg Capsule.) 60 mg PO BEDTIME [facility] Last Admin: 06/25/22 21:40 Dose: 60 mg Documented By: HECTOR Enoxaparin Sodium (Enoxaparin Sodium 40 Mg/0.4 Ml Syringe) 40 mg SUBCUT Q24H [facility] Last Admin: 06/26/22 09:57 Dose: 40 mg Documented By: ASHLEY Gabapentin (Gabapentin 300 Mg Capsule) 300 mg PO BEDTIME [facility] Last Admin: 06/25/22 21:40 Dose: 300 mg Documented By: HECTOR Hydromorphone HCl (Hydromorphone Hcl 0.5 Mg/0.5 Ml Syringe) 0.5 mg IVPUSH Q4H PRN; Protocol PRN Reason: mild pain Last Admin: 06/26/22 10:05 Dose: 0.5 mg Documented By: ASHLEY Voriconazole 200 mg/ Sodium (Chloride) 100 mls @ 50 mls/hr IV Q12H [facility] Last Admin: 06/26/22 09:56 Dose: 50 mls/hr Documented By: ASHLEY Meropenem 1 gm/ Sodium (Chloride) 100 mls @ 200 mls/hr IV Q8H [facility] Last Infusion: 06/26/22 10:45 Dose: 0 mls/hr Documented By: ASHLEY Potassium Cl/Dextrose/Lact Ringer's (Kcl 20 Meq In 5 % Dex/Lact Rin) 20 meq in 1,000 mls @ 100 mls/hr IVCONT .Q10H [facility] Last Admin: 06/26/22 10:01 Dose: 100 mls/hr Documented By: ASHLEY Vancomycin HCl 1,000 mg/ (Sodium Chloride) 270 mls @ 270 mls/hr IV Q12H [facility] Last Infusion: 06/26/22 04:34 Dose: 270 mls/hr Documented By: HECTOR Metoclopramide HCl (Metoclopramide Hcl 10 Mg/2 Ml Vial) 5 mg IVPUSH Q6H [facility] Last Admin: 06/26/22 04:41 Dose: 5 mg Documented By: HECTOR Metoprolol Tartrate (Metoprolol Tartrate 25 Mg Tablet) 75 mg PO BID [facility]; Protocol Last Admin: 06/26/22 09:58 Dose: 75 mg Documented By: ASHLEY Nystatin (Nystatin Powder 15 Gm Bottle) 1 appl TOPICAL BID [facility]; Protocol Last Admin: 06/26/22 09:59 Dose: 1 appl Documented By: ASHLEY Ondansetron HCl (Ondansetron Hcl 4 Mg/2 Ml Vial) 4 mg IVPUSH Q6H PRN PRN Reason: Nausea Last Admin: 06/25/22 13:10 Dose: 4 mg Documented By: SOLISPE Oxycodone HCl (Oxycodone Hcl Immed Release 5 Mg Tablet) 5 mg PO Q4H PRN PRN Reason: Pain, Moderate (Pain Scale 4-6 Last Admin: 06/25/22 13:11 Dose: 5 mg Documented By: EDYTA Pharmacy Consult (Consult Rx Perform Med Rec) 1 each MISCELLANE ONCE PRN PRN Reason: Consult order Pharmacy Consult (Consult Rx Vancomycin Dosing) 1 each MISCELLANE DAILY PRN PRN Reason: Consult order Sodium Chloride (0.9 % Sodium Chloride Flush 3 Ml Syringe) 3 ml IVFLUSH QSHIFT [facility] Last Admin: 06/26/22 09:56 Dose: 3 ml Documented By: ASHLEY Topiramate (Topiramate 100 Mg Tablet) 200 mg PO BID [facility] Last Admin: 06/26/22 09:58 Dose: 200 mg Documented By: ASHLEY Labs CBC & Chem 7: 06/26/22 05:53 06/26/22 05:53 Labs: Laboratory Results - last 24 hr 06/25/22 06/26/22 06/26/22 14:14 05:53 05:53 MCV 91.8 MCH 29.5 MCHC 32.1 RDW 17.9 H Plt Count 248 MPV 10.2 Absolute Nucleated RBC 0.000 Nucleated RBC % (auto) 0.0 Anion Gap 13 Estim Creat Clear Calc 132.1 Estimated GFR > 60 Random Glucose 106 Calcium 8.1 L Total Bilirubin 0.4 AST 8 ALT 7 Alkaline Phosphatase 101 Total Protein 4.9 L Albumin 2.4 L Random Vancomycin 17.8 Microbiology Microbiology Results: Microbiology 06/22/22 16:30 Gram Stain - Final Abdominal Fluid Routine Culture - Preliminary Yeast Anaerobic Culture - Preliminary No growth to date. 06/24/22 06:14 Blood Culture - Preliminary Blood - Venous No growth after 48 hours. 06/24/22 06:14 Blood Culture - Preliminary Blood - Venous No growth after 48 hours. Assessment and Plan (1) Leukocytosis: Status: Acute Plan d#40 62yo F admitted 05/18/22 with colitis/Crohn's flare. Flex sig showed perforation with abscess; taken to OR for ex-lap with colostomy after found to have extensive fecal soilage in peritoneum. Severely septic, sent to ICU intubated. Course since then complicated by multiple intra-abdominal abscesses causing fevers, with multiple drains placed by IR. Treated with metronidazole + meropenem and given TPN. Extubated 06/07/22, transitioned to tube feeds and then to oral diet. # sepsis with persistent fever - likely abdominal source, drained x3 - IV meropenem, vancomycin, and voriconazole as per ID consultation - follow blood and IR drain cultures- no growth to date - encourage IS - WBCs + fever curve decreasing # septic shock secondary to perforated viscus with fecal peritonitis - s/p ex-lap/colostomy - got 3 wk of meropenem + metronidazole, ABX then stopped - extubated 06/07/22, given TPN, transitioned to tube feeds, then to oral feeds - latest IR-guided drainage on 06/22 with removal of 500 mL of purulent fluid - opioids for pain control - midline catheter placed 06/23/22- clotted- will request a replacement # hypoK - repleted # migraines - resolved after 1 dose SQ sumatriptan yesterday # recurrent toxic-metabolic encephalopathy - resolved, was likely due to fever # acute/chronic normocytic anemia - likely due to inflammation, no acute blood loss noted; given 1u pRBCs on 06/23 # SABINE due to septic shock/hypovolemia - resolved # hyperglycemia - due to critical illness; resolved # acute respiratory failure - extubated in ICU 06/07/22 # VTE ppx: LMWH # dispo: will need rehab In my clinical judgment, the patient requires continued hospitalization for the following reasons: fever, sepsis Quality Stroke Does the patient have a stroke diagnosis?: No VTE Prior VTE?: No VTE Risk Level:: Medical - moderate - high VTE Device Contraindication: N/A - Device Ordered VTE Drug Contraindication: N/A - Med Ordered
[2022-06-26] MEDS: oxyCODONE HCl Immed Release 5 MG TABLET PO (12:26)
[2022-06-26 16:00] VITALS: BP 128/66; PULSE 96; RESP 18; TEMP 36.1; O2SAT 93
--- NOTE | 2022-06-26 16:59 | PM.GIPN ---
Subjective Subjective Date of Service: 06/26/22 Interval History: tired after pt c/o some abd discomfort Critical Care Time (minutes): 0 Physical Exam Vital Signs: Vital Signs: Last Vital Signs Temp 97 F 06/26/22 16:00 Pulse 96 06/26/22 16:00 Resp 18 06/26/22 16:00 BP 128/66 06/26/22 16:00 Pulse Ox 93 06/26/22 16:00 O2 Del Method 06/26/22 16:00 O2 Flow Rate 2 06/26/22 11:01 FiO2 35 06/14/22 12:00 Oxygen Flow Rate 35 06/13/22 21:00 BMI result Body Mass Index 34.3 GI: Other: abdomen is soft Extrem: Other: edema Objective Data Labs CBC & Chem 7: 06/26/22 05:53 06/26/22 05:53 Labs: Laboratory Results - last 24 hr 06/26/22 06/26/22 06/26/22 05:53 05:53 14:02 WBC 23.0 H RBC 2.68 L Hgb 7.9 L Hct 24.6 L MCV 91.8 MCH 29.5 MCHC 32.1 RDW 17.9 H Plt Count 248 MPV 10.2 Absolute Nucleated RBC 0.000 Nucleated RBC % (auto) 0.0 Sodium 139 Potassium 3.5 D Chloride 109 H Carbon Dioxide 21 L Anion Gap 13 BUN 12 Creatinine 0.47 L Estim Creat Clear Calc 132.1 Estimated GFR > 60 Random Glucose 106 Calcium 8.1 L Total Bilirubin 0.4 AST 8 ALT 7 Alkaline Phosphatase 101 Total Protein 4.9 L Albumin 2.4 L Random Vancomycin 15.0 Procedures Date of Service Date of Service: 06/26/22 Arterial Line Size (Gauge): 16 Progress Note: A&P Assessment and plan (1) Perforated viscus: Status: Acute Plan no new recommendations Time Spent With Patient Time: Total time spent is greater than 50% in coordination of care (as documented) at patient's floor/unit and/or counseling patient: Quality Stroke Does the patient have a stroke diagnosis?: No VTE Prior VTE?: No VTE Risk Level:: Medical - moderate - high VTE Device Contraindication: N/A - Device Ordered VTE Drug Contraindication: N/A - Med Ordered
[2022-06-26 19:01] VITALS: BP 111/59; PULSE 107; RESP 18; TEMP 36.1; O2SAT 95
[2022-06-26] MEDS: DULoxetine HCl 60 MG CAPSULE.DR PO (21:53)
[2022-06-26] MEDS: Gabapentin 300 MG CAPSULE PO (21:53)
[2022-06-26] MEDS: Metoprolol Tartrate 100 MG TABLET PO (21:53)
[2022-06-26] MEDS: ondansetron HCL 4 MG/2 ML VIAL IVPUSH (22:36)
[2022-06-27] VITALS (7 sets, daily range): BP systolic 105–146; BP diastolic 57–70; PULSE 85–109; RESP 16–20; TEMP 36.3–37.9; O2SAT 89–98; BMI 35.9
[2022-06-27] MEDS: Metoclopramide HCl 10 MG/2 ML VIAL 5 MG IVPUSH ×3 (00:20→11:19)
[2022-06-27] MEDS: oxyCODONE HCl Immed Release 5 MG TABLET PO ×4 (00:21→21:52)
[2022-06-27] MEDS: Acetaminophen 325 MG TABLET 650 MG PO (00:36)
[2022-06-27] MEDS: vancomycin HCL 1,000 MG in 0.9 % Sodium Chloride 250 ML 270 MG IV (05:22)
[2022-06-27] MEDS: HYDROmorphone HCl 0.5 MG/0.5 ML SYRINGE IVPUSH ×3 (05:26→18:58)
[2022-06-27 07:00] LABS: Hematocrit 27.7 % (37.0-47.0); Hemoglobin 8.7 g/dl (12.0-16.0); Mean Corpuscular HGB Conc 31.4 g/dl (31.0-35.0); Mean Corpuscular Volume 92.3 fL (80.0-98.0); Mean Platelet Volume 10.8 fL (9.4-12.3); Platelet Count 250 X10*3/uL (160-400); Red Cell Distribution Width 17.5 % (11.0-16.0); White Blood Count 10.4 X10*3/uL (4.8-10.8)
[2022-06-27 07:23] LABS: Anion Gap 14 (12-20); Blood Urea Nitrogen 10 mg/dL (9-16); C Reactive Protein 13.96 mg/dL (< or = 0.50); Calcium 8.2 mg/dL (8.4-10.2); Carbon Dioxide 21 mmol/L (22-29); Chloride 108 mmol/L (96-108); Creatinine Clr Calc Pharmacy 138.2; Estimated Glomerular Filt Rate > 60; Glucose Random 80 mg/dL (60-115); Potassium 3.8 mmol/L (3.3-5.1); Sodium 139 mmol/L (135-145)
[2022-06-27 08:45] LABS: Procalcitonin 11.11 ng/mL
--- NOTE | 2022-06-27 09:27 | HO.MIDLINE_ITS ---
Midline Insertion MIDLINE INSERTION Diagnosis: Abdominal Pain Indication: IV pain meds and blood transfusions needed Pertinent Labs: reviewed Pt arrived to S272 for interrogation of left arm Midline. This underwriter was able to obtin blood return, but unable to flush easily. Existing Midline pulled back slightly and a blood return was obtained. Technique: Using sterile technique including cap and mask, glove and drape, the existing left brachial midline and left arm was prepped and draped in the usual sterile fashion of full barrier technique with CHG. An 0.[address] Midline kit was advanced through existing midline. Existing midline was removed and a new [id number] PowerGlide ST midline was advanced over the wire. The procedure was performed in [S272]. Ultrasound was used to document vein patency and for needle entry. A formal ultrasound picture was recorded. [employer] Product Tester has released the line for use and it is currently dressed with a StatLock, Tegaderm, and CHG disc. Verification has been performed for blood return and line patency. Equipment: BARD PowerGlide ST Midline Catheter Type: [id number] Non-PASV Midline Lot #: [id number]
[2022-06-27] MEDS: Heparin Sodium,Porcine Flush 50 UNITS, 0.9 % Sodium Chloride Flush 5 ML IVFLUSH (09:31)
[2022-06-27] MEDS: Metoprolol Tartrate 100 MG TABLET PO ×2 (09:32→21:52)
[2022-06-27] MEDS: Enoxaparin Sodium 40 MG/0.4 ML SYRINGE SUBCUT (09:32)
[2022-06-27] MEDS: Voriconazole 200 MG in 0.9 % Sodium Chloride 100 ML 50 MG IV (09:33)
[2022-06-27] MEDS: Topiramate 100 MG TABLET 200 MG PO ×2 (09:33→21:52)
[2022-06-27] MEDS: 0.9 % Sodium Chloride Flush 3 ML SYRINGE IVFLUSH ×2 (09:33→18:59)
[2022-06-27] MEDS: Nystatin Powder 15 GM BOTTLE 1 APPL TOPICAL ×2 (10:05→21:54)
--- NOTE | 2022-06-27 11:19 | PM.IDPN ---
Subjective Subjective Date of Service: 06/27/22 Critical Care Time (minutes): 15 Comment: she has no complaints verónica albicans only organism drain blood cultures negative so far temperature decreased Objective Data Labs CBC & Chem 7: 06/27/22 05:59 06/27/22 05:59 Labs: Laboratory Results - last 24 hr 06/26/22 06/27/22 06/27/22 14:02 05:59 05:59 WBC 10.4 RBC 3.00 L Hgb 8.7 L Hct 27.7 L MCV 92.3 MCH 29.0 MCHC 31.4 RDW 17.5 H Plt Count 250 MPV 10.8 Absolute Nucleated RBC 0.000 Nucleated RBC % (auto) 0.0 Sodium 139 Potassium 3.8 Chloride 108 Carbon Dioxide 21 L Anion Gap 14 BUN 10 Creatinine 0.46 L Estim Creat Clear Calc 138.2 Estimated GFR > 60 Random Glucose 80 Calcium 8.2 L C-Reactive Protein 13.96 H Procalcitonin Random Vancomycin 15.0 06/27/22 05:59 WBC RBC Hgb Hct MCV MCH MCHC RDW Plt Count MPV Absolute Nucleated RBC Nucleated RBC % (auto) Sodium Potassium Chloride Carbon Dioxide Anion Gap BUN Creatinine Estim Creat Clear Calc Estimated GFR Random Glucose Calcium C-Reactive Protein Procalcitonin 11.11 Random Vancomycin Microbiology Microbiology Results: Microbiology 06/22/22 16:30 Abdominal Fluid Gram Stain - Final 06/22/22 16:30 Abdominal Fluid Routine Culture - Final Verónica albicans 06/22/22 16:30 Abdominal Fluid Anaerobic Culture - Final NO GROWTH AFTER 5 DAYS 06/02/22 Unknown Abscess Intra-abdominal Fungal Identification - Preliminary Verónica dubliniensis 06/24/22 06:14 Blood - Venous Blood Culture - Preliminary No growth after 48 hours. 06/24/22 06:14 Blood - Venous Blood Culture - Preliminary No growth after 48 hours. 06/03/22 15:28 Blood - Subclavian Blood Culture - Final No growth after 5 days. 06/03/22 06:15 Blood - Venous Blood Culture - Final No growth after 5 days. 06/03/22 06:15 Blood - Venous Blood Culture - Final No growth after 5 days. 06/02/22 Unknown Peritoneal Fluid Gram Stain - Final 06/02/22 Unknown Peritoneal Fluid Routine Culture - Final Verónica albicans 06/02/22 Unknown Peritoneal Fluid Anaerobic Culture - Final 05/29/22 15:14 Blood - Venous Blood Culture - Final No growth after 5 days. 05/29/22 15:13 Blood - Venous Blood Culture - Final No growth after 5 days. 05/29/22 05:14 Blood - Venous Blood Culture - Final No growth after 5 days. 05/29/22 05:14 Blood - Venous Blood Culture - Final No growth after 5 days. 06/02/22 Unknown Abscess Intra-abdominal Gram Stain - Final 06/02/22 Unknown Abscess Intra-abdominal Routine Culture - Final 06/02/22 Unknown Abscess Intra-abdominal Anaerobic Culture - Final 06/02/22 Unknown Abscess Intra-abdominal Gram Stain - Final 06/02/22 Unknown Abscess Intra-abdominal Routine Culture - Final 05/28/22 Unknown Peritoneal Fluid Gram Stain - Final 05/28/22 Unknown Peritoneal Fluid Anaerobic Culture - Final 05/28/22 Unknown Peritoneal Fluid Body Fluid Culture - Final Verónica dubliniensis 05/29/22 15:05 Sputum - Suctioned Gram Stain - Final 05/29/22 15:05 Sputum - Suctioned Sputum Culture - Final Verónica dubliniensis 05/28/22 16:47 Sputum - Suctioned Gram Stain - Final 05/28/22 16:47 Sputum - Suctioned Sputum Culture - Final Verónica albicans 05/23/22 Unknown Peritoneal Fluid Gram Stain - Final 05/23/22 Unknown Peritoneal Fluid Routine Culture - Final Escherichia coli 05/23/22 Unknown Peritoneal Fluid Anaerobic Culture - Final Clostridium perfringens Bacteroides thetaiotaomicron 05/19/22 08:49 Blood - Venous Blood Culture - Final No growth after 5 days. 05/19/22 08:49 Blood - Venous Blood Culture - Final No growth after 5 days. Physical Exam Vital Signs: Vital Signs: Last Vital Signs Temp 97.6 F 06/27/22 07:39 Pulse 97 06/27/22 07:39 Resp 18 06/27/22 07:39 BP 118/64 06/27/22 07:39 Pulse Ox 96 06/27/22 07:39 O2 Del Method 06/27/22 07:39 O2 Flow Rate 2 06/27/22 07:39 FiO2 35 06/14/22 12:00 Oxygen Flow Rate 35 06/13/22 21:00 BMI result Body Mass Index 35.9 Const: General: cooperative Resp: Effort & Inspection: normal respiratory effort Cardio: Rate: regular rate Rhythm: regular rhythm GI: Palpation (GI): Soft to palpation and nontender Assessment and Plan Assessment and plan (1) Peritonitis: Problem details: She has only fungal organisms seen peritonitis Possible resistant fungus Status: Acute Plan Continue Voriconazole likely 28 days,and can give po on discharge Ensure that little or no collection remains Would stop Merem and Vancomycin tomorrow if no bacterial infection found. Could check sensitivities of yeast to fluconazole and voriconazole if isolate still available. Time Spent With Patient Time: Total time spent is greater than 50% in coordination of care (as documented) at patient's floor/unit and/or counseling patient: Procedures Arterial Line Size (Gauge): 16
--- NOTE | 2022-06-27 11:33 | P.PNIM_ITS ---
Subjective Subjective Date of Service: 06/27/22 Interval History: Fever curve continues to improve; Tmax 100.2 @ 00:09 WBCs normalized Tolerating diet Some crampy abd pain around stoma Review of Systems Review of Systems: Yes all other systems are reviewed and are negative Physical Exam Vital Signs: Vital Signs: Last Vital Signs Temp 98.2 F 06/27/22 11:29 Pulse 92 06/27/22 11:29 Resp 20 06/27/22 11:29 BP 113/57 L 06/27/22 11:29 Pulse Ox 93 06/27/22 11:29 O2 Del Method 06/27/22 11:29 O2 Flow Rate 2 06/27/22 07:39 FiO2 35 06/14/22 12:00 Oxygen Flow Rate 35 06/13/22 21:00 BMI result Body Mass Index 35.9 Gen: no acute distress HEENT: sclera anicteric, moist mucus membranes Neck: supple Lungs: clear to auscultation bilaterally Heart: regular, tachycardic, no murmurs Abd: soft, stoma with stool, non-tender, IR drains x3 with scant purulent liquid Ext: no edema, LUE midline catheter Skin: warm/well-perfused Neuro: alert and oriented x3, no focal findings Psych: appropriate affect Objective Data Active Medications Acetaminophen (Acetaminophen 325 Mg Tablet) 650 mg PO Q6H PRN PRN Reason: fever Last Admin: 06/27/22 00:36 Dose: 650 mg Documented By: NUPUR Heparin Sodium (Porcine) 50 (units/ Sodium Chloride 5 ml) 0 units IVFLUSH TID [facility] Last Admin: 06/27/22 09:31 Dose: 50 unit Documented By: ASHLEY Duloxetine HCl (Duloxetine Hcl 60 Mg Capsule.Dr) 60 mg PO BEDTIME [facility] Last Admin: 06/26/22 21:53 Dose: 60 mg Documented By: ASHLEY Enoxaparin Sodium (Enoxaparin Sodium 40 Mg/0.4 Ml Syringe) 40 mg SUBCUT Q24H [facility] Last Admin: 06/27/22 09:32 Dose: 40 mg Documented By: ASHLEY Gabapentin (Gabapentin 300 Mg Capsule) 300 mg PO BEDTIME [facility] Last Admin: 06/26/22 21:53 Dose: 300 mg Documented By: ASHLEY Hydromorphone HCl (Hydromorphone Hcl 0.5 Mg/0.5 Ml Syringe) 0.5 mg IVPUSH Q4H PRN; Protocol PRN Reason: mild pain Last Admin: 06/27/22 09:40 Dose: 0.5 mg Documented By: ASHLEY Voriconazole 200 mg/ Sodium (Chloride) 100 mls @ 50 mls/hr IV Q12H [facility] Last Admin: 06/27/22 09:33 Dose: 50 mls/hr Documented By: ASHLEY Meropenem 1 gm/ Sodium (Chloride) 100 mls @ 200 mls/hr IV Q8H [facility] Last Infusion: 06/27/22 10:06 Dose: 0 mls/hr Documented By: ASHLEY Vancomycin HCl 1,000 mg/ (Sodium Chloride) 270 mls @ 270 mls/hr IV Q12H [facility] Last Infusion: 06/27/22 09:41 Dose: 0 mls/hr Documented By: ASHLEY Metoclopramide HCl (Metoclopramide Hcl 10 Mg/2 Ml Vial) 5 mg IVPUSH Q6H [facility] Last Admin: 06/27/22 11:19 Dose: 5 mg Documented By: ASHLEY Metoprolol Tartrate (Metoprolol Tartrate 100 Mg Tablet) 100 mg PO BID [facility]; Protocol Last Admin: 06/27/22 09:32 Dose: 100 mg Documented By: ASHLEY Nystatin (Nystatin Powder 15 Gm Bottle) 1 appl TOPICAL BID [facility]; Protocol Last Admin: 06/27/22 10:05 Dose: 1 appl Documented By: ASHLEY Ondansetron HCl (Ondansetron Hcl 4 Mg/2 Ml Vial) 4 mg IVPUSH Q6H PRN PRN Reason: Nausea Last Admin: 06/26/22 22:36 Dose: 4 mg Documented By: ASHLEY Oxycodone HCl (Oxycodone Hcl Immed Release 5 Mg Tablet) 5 mg PO Q4H PRN PRN Reason: Pain, Moderate (Pain Scale 4-6 Last Admin: 06/27/22 00:21 Dose: 5 mg Documented By: NUPUR Pharmacy Consult (Consult Rx Perform Med Rec) 1 each MISCELLANE ONCE PRN PRN Reason: Consult order Pharmacy Consult (Consult Rx Vancomycin Dosing) 1 each MISCELLANE DAILY PRN PRN Reason: Consult order Sodium Chloride (0.9 % Sodium Chloride Flush 3 Ml Syringe) 3 ml IVFLUSH QSHIFT [facility] Last Admin: 06/27/22 09:33 Dose: 3 ml Documented By: ASHLEY Topiramate (Topiramate 100 Mg Tablet) 200 mg PO BID [facility] Last Admin: 06/27/22 09:33 Dose: 200 mg Documented By: ASHLEY Labs CBC & Chem 7: 06/27/22 05:59 06/27/22 05:59 Labs: Laboratory Results - last 24 hr 06/26/22 06/27/22 06/27/22 14:02 05:59 05:59 MCV 92.3 MCH 29.0 MCHC 31.4 RDW 17.5 H Plt Count 250 MPV 10.8 Absolute Nucleated RBC 0.000 Nucleated RBC % (auto) 0.0 Anion Gap 14 Estim Creat Clear Calc 138.2 Estimated GFR > 60 Random Glucose 80 Calcium 8.2 L C-Reactive Protein 13.96 H Procalcitonin Random Vancomycin 15.0 06/27/22 05:59 MCV MCH MCHC RDW Plt Count MPV Absolute Nucleated RBC Nucleated RBC % (auto) Anion Gap Estim Creat Clear Calc Estimated GFR Random Glucose Calcium C-Reactive Protein Procalcitonin 11.11 Random Vancomycin Laboratory Tests 05/18/22 05/18/22 05/18/22 10:30 10:31 11:28 WBC 10.7 RBC 5.01 Hgb 15.1 Hct 44.8 MCV 89.4 MCH 30.1 MCHC 33.7 RDW 12.5 Plt Count 223 MPV 10.4 Immature Gran % (Auto) 0.6 H Neut % (Auto) 75.2 H Lymph % (Auto) 19.9 L [place] % (Auto) 2.8 Eos % (Auto) 1.1 Baso % (Auto) 0.4 Lymph # (Auto) 2.1 [place]comb # (Auto) 0.3 Eos # (Auto) 0.1 Baso # (Auto) 0.0 Abs Immat Gran (auto) 0.06 H Absolute Neuts (auto) 8.0 Absolute Nucleated RBC 0.000 Nucleated RBC % (auto) 0.0 Neutrophils % (Manual) Band Neutrophils % Lymphocytes % (Manual) Atypical Lymphs % (Man) Monocytes % (Manual) Eosinophils % (Manual) Basophils % (Manual) Metamyelocytes % Myelocytes % Promyelocytes % Abs Neuts (Manual) Lymphocytes # (Manual) Atyp Lymphs # (Manual) Monocytes # (Manual) Eosinophils # (Manual) Basophils # (Manual) Metamyelocytes # Myelocytes # Promyelocytes # Nucleated RBCs Smudge Cells Toxic Granulation Toxic Vacuolation Dohle Bodies Platelet Estimate Large Platelets Plt Morphology Comment RBC Morphology Polychromasia Hypochromasia Microcytosis Macrocytosis Spherocytes Ovalocytes Stomatocytes Susan Cells Smear Tech's Comments ESR 8 PT INR aPTT Heparin Protocol Hep-Ind Thrombocytop Com O2 Saturation ABG pH at Pt Temp ABG pCO2 at Pt Temp ABG pO2 at Pt Temp ABG HCO3 ABG Base Excess (Actual) VBG pH VBG pCO2 VBG pO2 VBG HCO3 VBG O2 Saturation VBG Base Excess Sodium 144 Potassium 3.4 Chloride 109 H Carbon Dioxide 20 L Anion Gap 18 BUN 15 Creatinine 0.84 Estim Creat Clear Calc 70.3 Estimated GFR > 60 POC Glucose Random Glucose 129 H Estimat Average Glucose Hemoglobin A1c % Lactic Acid Lactic Acid F/U @ 2Hr Lactic Acid F/U @ 4Hr Calcium 8.5 D Phosphorus Magnesium Total Bilirubin 0.5 Direct Bilirubin AST 29 ALT 83 H Alkaline Phosphatase 114 C-Reactive Protein 1.61 H B-Natriuretic Peptide Total Protein 7.1 Albumin 4.3 Triglycerides Lipase 16 Procalcitonin Urine Color Urine Appearance Urine pH Ur Specific [place] Urine Protein Urine Glucose (UA) Urine Ketones Urine Blood Urine Nitrite Ur Leukocyte Esterase Ur Random Sodium Random Vancomycin Heparin Dep Plt Ab OD Hep-Induced Plt Ab Britt C. difficile Tox B Gene COVID-19 ([facility]) COVID-19 Clin Com Blood Type Antibody Screen Crossmatch 05/18/22 05/19/22 05/19/22 14:53 01:53 06:37 WBC 16.9 H RBC 4.52 Hgb 13.3 Hct 40.7 MCV 90.0 MCH 29.4 MCHC 32.7 RDW 13.0 Plt Count 209 MPV 10.3 Immature Gran % (Auto) Cancelled Neut % (Auto) Cancelled Lymph % (Auto) Cancelled [place] % (Auto) Cancelled Eos % (Auto) Cancelled Baso % (Auto) Cancelled Lymph # (Auto) Cancelled [place] # (Auto) Cancelled Eos # (Auto) Cancelled Baso # (Auto) Cancelled Abs Immat Gran (auto) Cancelled Absolute Neuts (auto) Cancelled Absolute Nucleated RBC 0.000 Nucleated RBC % (auto) 0.0 Neutrophils % (Manual) 55 Band Neutrophils % 24 H Lymphocytes % (Manual) 12 L Atypical Lymphs % (Man) Monocytes % (Manual) 2 Eosinophils % (Manual) Basophils % (Manual) Metamyelocytes % 5 Myelocytes % 2 Promyelocytes % Abs Neuts (Manual) 13.4 H Lymphocytes # (Manual) 2.0 Atyp Lymphs # (Manual) Monocytes # (Manual) 0.3 Eosinophils # (Manual) Basophils # (Manual) Metamyelocytes # 0.8 Myelocytes # 0.3 Promyelocytes # Nucleated RBCs Smudge Cells Toxic Granulation Toxic Vacuolation Dohle Bodies Platelet Estimate NORMAL Large Platelets Plt Morphology Comment NORMAL RBC Morphology NORMAL Polychromasia Hypochromasia Microcytosis Macrocytosis Spherocytes Ovalocytes Stomatocytes Amonate Cells Smear Tech's Comments ESR PT INR aPTT Heparin Protocol Hep-Ind Thrombocytop Com O2 Saturation ABG pH at Pt Temp ABG pCO2 at Pt Temp ABG pO2 at Pt Temp ABG HCO3 ABG Base Excess (Actual) VBG pH VBG pCO2 VBG pO2 VBG HCO3 VBG O2 Saturation VBG Base Excess Sodium Potassium Chloride Carbon Dioxide Anion Gap BUN Creatinine Estim Creat Clear Calc Estimated GFR POC Glucose Random Glucose Estimat Average Glucose Hemoglobin A1c % Lactic Acid Lactic Acid F/U @ 2Hr Lactic Acid F/U @ 4Hr Calcium Phosphorus Magnesium Total Bilirubin Direct Bilirubin AST ALT Alkaline Phosphatase C-Reactive Protein B-Natriuretic Peptide Total Protein Albumin Triglycerides Lipase Procalcitonin Urine Color Yellow Urine Appearance Clear Urine pH 7.0 Ur Specific [place] >= 1.030 H Urine Protein Negative Urine Glucose (UA) Negative Urine Ketones Negative Urine Blood Negative Urine Nitrite Negative Ur Leukocyte Esterase Negative Ur Random Sodium Random Vancomycin Heparin Dep Plt Ab OD Hep-Induced Plt Ab Britt C. difficile Tox B Gene COVID-19 ([facility]) Negative COVID-19 Clin Com See Note Blood Type Antibody Screen Crossmatch 05/19/22 05/19/22 05/20/22 06:37 08:49 05:54 WBC 18.8 H RBC 3.87 L Hgb 11.6 L Hct 34.5 L MCV 89.1 MCH 30.0 MCHC 33.6 RDW 12.9 Plt Count 168 MPV 10.8 Immature Gran % (Auto) Cancelled Neut % (Auto) Cancelled Lymph % (Auto) Cancelled [place] % (Auto) Cancelled Eos % (Auto) Cancelled Baso % (Auto) Cancelled Lymph # (Auto) Cancelled [place] # (Auto) Cancelled Eos # (Auto) Cancelled Baso # (Auto) Cancelled Abs Immat Gran (auto) Cancelled Absolute Neuts (auto) Cancelled Absolute Nucleated RBC 0.000 Nucleated RBC % (auto) 0.0 Neutrophils % (Manual) 68 Band Neutrophils % 27 H Lymphocytes % (Manual) 3 L Atypical Lymphs % (Man) Monocytes % (Manual) 2 Eosinophils % (Manual) Basophils % (Manual) Metamyelocytes % Myelocytes % Promyelocytes % Abs Neuts (Manual) 17.9 H Lymphocytes # (Manual) 0.6 L Atyp Lymphs # (Manual) Monocytes # (Manual) 0.4 Eosinophils # (Manual) Basophils # (Manual) Metamyelocytes # Myelocytes # Promyelocytes # Nucleated RBCs Smudge Cells Toxic Granulation Toxic Vacuolation Dohle Bodies PRESENT Platelet Estimate NORMAL Large Platelets Plt Morphology Comment NORMAL RBC Morphology NORMAL Polychromasia Hypochromasia Microcytosis Macrocytosis Spherocytes Ovalocytes Stomatocytes Amonate Cells Smear Tech's Comments ESR PT INR aPTT Heparin Protocol Hep-Ind Thrombocytop Com O2 Saturation ABG pH at Pt Temp ABG pCO2 at Pt Temp ABG pO2 at Pt Temp ABG HCO3 ABG Base Excess (Actual) VBG pH VBG pCO2 VBG pO2 VBG HCO3 VBG O2 Saturation VBG Base Excess Sodium 142 Potassium 3.3 Chloride 110 H Carbon Dioxide 19 L Anion Gap 16 BUN 16 Creatinine 0.83 Estim Creat Clear Calc 71.1 Estimated GFR > 60 POC Glucose Random Glucose 143 H Estimat Average Glucose Hemoglobin A1c % Lactic Acid 0.9 Lactic Acid F/U @ 2Hr Lactic Acid F/U @ 4Hr Calcium 7.8 L D Phosphorus Magnesium Total Bilirubin Direct Bilirubin AST ALT Alkaline Phosphatase C-Reactive Protein B-Natriuretic Peptide Total Protein Albumin Triglycerides Lipase Procalcitonin Urine Color Urine Appearance Urine pH Ur Specific [place] Urine Protein Urine Glucose (UA) Urine Ketones Urine Blood Urine Nitrite Ur Leukocyte Esterase Ur Random Sodium Random Vancomycin Heparin Dep Plt Ab OD Hep-Induced Plt Ab Britt C. difficile Tox B Gene COVID-19 ([facility]) COVID-19 Clin Com Blood Type Antibody Screen Crossmatch 05/20/22 05/20/22 05/21/22 05:54 19:05 06:07 WBC RBC Hgb Hct MCV MCH MCHC RDW Plt Count MPV Immature Gran % (Auto) Neut % (Auto) Lymph % (Auto) [place] % (Auto) Eos % (Auto) Baso % (Auto) Lymph # (Auto) [place] # (Auto) Eos # (Auto) Baso # (Auto) Abs Immat Gran (auto) Absolute Neuts (auto) Absolute Nucleated RBC Nucleated RBC % (auto) Neutrophils % (Manual) Band Neutrophils % Lymphocytes % (Manual) Atypical Lymphs % (Man) Monocytes % (Manual) Eosinophils % (Manual) Basophils % (Manual) Metamyelocytes % Myelocytes % Promyelocytes % Abs Neuts (Manual) Lymphocytes # (Manual) Atyp Lymphs # (Manual) Monocytes # (Manual) Eosinophils # (Manual) Basophils # (Manual) Metamyelocytes # Myelocytes # Promyelocytes # Nucleated RBCs Smudge Cells Toxic Granulation Toxic Vacuolation Dohle Bodies Platelet Estimate Large Platelets Plt Morphology Comment RBC Morphology Polychromasia Hypochromasia Microcytosis Macrocytosis Spherocytes Ovalocytes Stomatocytes Amonate Cells Smear Tech's Comments ESR PT INR aPTT Heparin Protocol Hep-Ind Thrombocytop Com O2 Saturation ABG pH at Pt Temp ABG pCO2 at Pt Temp ABG pO2 at Pt Temp ABG HCO3 ABG Base Excess (Actual) VBG pH VBG pCO2 VBG pO2 VBG HCO3 VBG O2 Saturation VBG Base Excess Sodium 139 140 Potassium 2.9 L 4.5 D 3.1 L D Chloride 106 109 H Carbon Dioxide 20 L 21 L Anion Gap 16 13 BUN 17 H 17 H Creatinine 0.73 0.75 Estim Creat Clear Calc 80.9 78.7 Estimated GFR > 60 > 60 POC Glucose Random Glucose 124 H 94 Estimat Average Glucose Hemoglobin A1c % Lactic Acid Lactic Acid F/U @ 2Hr Lactic Acid F/U @ 4Hr Calcium 8.0 L 7.9 L Phosphorus Magnesium 1.9 2.1 Total Bilirubin Direct Bilirubin AST ALT Alkaline Phosphatase C-Reactive Protein B-Natriuretic Peptide Total Protein Albumin Triglycerides Lipase Procalcitonin Urine Color Urine Appearance Urine pH Ur Specific [place] Urine Protein Urine Glucose (UA) Urine Ketones Urine Blood Urine Nitrite Ur Leukocyte Esterase Ur Random Sodium Random Vancomycin Heparin Dep Plt Ab OD Hep-Induced Plt Ab Britt C. difficile Tox B Gene COVID-19 ([facility]) COVID-19 Clin Com Blood Type Antibody Screen Crossmatch 05/21/22 05/22/22 05/22/22 06:08 06:04 06:04 WBC 18.7 H 18.4 H RBC 3.28 L 3.67 L Hgb 9.8 L 10.8 L Hct 28.9 L 32.3 L MCV 88.1 88.0 MCH 29.9 29.4 MCHC 33.9 33.4 RDW 13.0 13.2 Plt Count 161 185 MPV 10.7 10.4 Immature Gran % (Auto) Neut % (Auto) Lymph % (Auto) [place] % (Auto) Eos % (Auto) Baso % (Auto) Lymph # (Auto) [place] # (Auto) Eos # (Auto) Baso # (Auto) Abs Immat Gran (auto) Absolute Neuts (auto) Absolute Nucleated RBC 0.000 0.000 Nucleated RBC % (auto) 0.0 0.0 Neutrophils % (Manual) Band Neutrophils % Lymphocytes % (Manual) Atypical Lymphs % (Man) Monocytes % (Manual) Eosinophils % (Manual) Basophils % (Manual) Metamyelocytes % Myelocytes % Promyelocytes % Abs Neuts (Manual) Lymphocytes # (Manual) Atyp Lymphs # (Manual) Monocytes # (Manual) Eosinophils # (Manual) Basophils # (Manual) Metamyelocytes # Myelocytes # Promyelocytes # Nucleated RBCs Smudge Cells Toxic Granulation Toxic Vacuolation Dohle Bodies Platelet Estimate Large Platelets Plt Morphology Comment RBC Morphology Polychromasia Hypochromasia Microcytosis Macrocytosis Spherocytes Ovalocytes Stomatocytes Susan Cells Smear Tech's Comments ESR PT INR aPTT Heparin Protocol Hep-Ind Thrombocytop Com O2 Saturation ABG pH at Pt Temp ABG pCO2 at Pt Temp ABG pO2 at Pt Temp ABG HCO3 ABG Base Excess (Actual) VBG pH VBG pCO2 VBG pO2 VBG HCO3 VBG O2 Saturation VBG Base Excess Sodium 143 Potassium 3.3 Chloride 111 H Carbon Dioxide 21 L Anion Gap 14 BUN 15 Creatinine 0.68 Estim Creat Clear Calc 86.9 Estimated GFR > 60 POC Glucose Random Glucose 86 Estimat Average Glucose Hemoglobin A1c % Lactic Acid Lactic Acid F/U @ 2Hr Lactic Acid F/U @ 4Hr Calcium 8.1 L Phosphorus Magnesium 2.0 Total Bilirubin 0.4 Direct Bilirubin 0.2 AST 21 ALT 47 H Alkaline Phosphatase 107 C-Reactive Protein B-Natriuretic Peptide Total Protein 5.4 L D Albumin 3.1 L D Triglycerides Lipase Procalcitonin Urine Color Urine Appearance Urine pH Ur Specific [place] Urine Protein Urine Glucose (UA) Urine Ketones Urine Blood Urine Nitrite Ur Leukocyte Esterase Ur Random Sodium Random Vancomycin Heparin Dep Plt Ab OD Hep-Induced Plt Ab Britt C. difficile Tox B Gene COVID-19 ([facility]) COVID-19 Clin Com Blood Type Antibody Screen Crossmatch 05/23/22 05/23/22 05/23/22 15:31 20:00 20:00 WBC 11.3 H RBC 4.23 Hgb 12.5 Hct 37.6 MCV 88.9 MCH 29.6 MCHC 33.2 RDW 13.8 Plt Count 274 D MPV 10.2 Immature Gran % (Auto) Neut % (Auto) Lymph % (Auto) [place] % (Auto) Eos % (Auto) Baso % (Auto) Lymph # (Auto) [place] # (Auto) Eos # (Auto) Baso # (Auto) Abs Immat Gran (auto) Absolute Neuts (auto) Absolute Nucleated RBC 0.050 H Nucleated RBC % (auto) 0.4 H Neutrophils % (Manual) Band Neutrophils % Lymphocytes % (Manual) Atypical Lymphs % (Man) Monocytes % (Manual) Eosinophils % (Manual) Basophils % (Manual) Metamyelocytes % Myelocytes % Promyelocytes % Abs Neuts (Manual) Lymphocytes # (Manual) Atyp Lymphs # (Manual) Monocytes # (Manual) Eosinophils # (Manual) Basophils # (Manual) Metamyelocytes # Myelocytes # Promyelocytes # Nucleated RBCs Smudge Cells Toxic Granulation Toxic Vacuolation Dohle Bodies Platelet Estimate Large Platelets Plt Morphology Comment RBC Morphology Polychromasia Hypochromasia Microcytosis Macrocytosis Spherocytes Ovalocytes Stomatocytes Susan Cells Smear Tech's Comments ESR PT INR aPTT Heparin Protocol Hep-Ind Thrombocytop Com O2 Saturation ABG pH at Pt Temp ABG pCO2 at Pt Temp ABG pO2 at Pt Temp ABG HCO3 ABG Base Excess (Actual) VBG pH VBG pCO2 VBG pO2 VBG HCO3 VBG O2 Saturation VBG Base Excess Sodium 141 Potassium 3.4 Chloride 113 H Carbon Dioxide 15 L Anion Gap 16 BUN 14 Creatinine 0.78 Estim Creat Clear Calc 75.7 Estimated GFR > 60 POC Glucose Random Glucose 158 H Estimat Average Glucose Hemoglobin A1c % Lactic Acid Lactic Acid F/U @ 2Hr Lactic Acid F/U @ 4Hr Calcium 6.9 L D Phosphorus 6.1 H Magnesium 1.5 L Total Bilirubin 1.1 H Direct Bilirubin AST 28 ALT 34 H Alkaline Phosphatase 78 D C-Reactive Protein B-Natriuretic Peptide Total Protein 2.5 L D Albumin 1.4 L D Triglycerides Lipase Procalcitonin Urine Color Urine Appearance Urine pH Ur Specific [place] Urine Protein Urine Glucose (UA) Urine Ketones Urine Blood Urine Nitrite Ur Leukocyte Esterase Ur Random Sodium Random Vancomycin Heparin Dep Plt Ab OD Hep-Induced Plt Ab Britt C. difficile Tox B Gene COVID-19 ([facility]) COVID-19 Clin Com Blood Type B Positive Antibody Screen NEGATIVE Crossmatch 05/23/22 05/23/22 05/23/22 20:00 20:07 21:14 WBC RBC Hgb Hct MCV MCH MCHC RDW Plt Count MPV Immature Gran % (Auto) Neut % (Auto) Lymph % (Auto) [place] % (Auto) Eos % (Auto) Baso % (Auto) Lymph # (Auto) [place] # (Auto) Eos # (Auto) Baso # (Auto) Abs Immat Gran (auto) Absolute Neuts (auto) Absolute Nucleated RBC Nucleated RBC % (auto) Neutrophils % (Manual) Band Neutrophils % Lymphocytes % (Manual) Atypical Lymphs % (Man) Monocytes % (Manual) Eosinophils % (Manual) Basophils % (Manual) Metamyelocytes % Myelocytes % Promyelocytes % Abs Neuts (Manual) Lymphocytes # (Manual) Atyp Lymphs # (Manual) Monocytes # (Manual) Eosinophils # (Manual) Basophils # (Manual) Metamyelocytes # Myelocytes # Promyelocytes # Nucleated RBCs Smudge Cells Toxic Granulation Toxic Vacuolation Dohle Bodies Platelet Estimate Large Platelets Plt Morphology Comment RBC Morphology Polychromasia Hypochromasia Microcytosis Macrocytosis Spherocytes Ovalocytes Stomatocytes Amonate Cells Smear Tech's Comments ESR PT INR aPTT Heparin Protocol Hep-Ind Thrombocytop Com O2 Saturation 95.0 ABG pH at Pt Temp 7.29 L ABG pCO2 at Pt Temp 27 L ABG pO2 at Pt Temp 79 L ABG HCO3 13 L ABG Base Excess (Actual) -11.4 VBG pH 7.28 L VBG pCO2 32 VBG pO2 55 VBG HCO3 15 L VBG O2 Saturation 82.0 VBG Base Excess -10.1 Sodium Potassium Chloride Carbon Dioxide Anion Gap BUN Creatinine Estim Creat Clear Calc Estimated GFR POC Glucose Random Glucose Estimat Average Glucose Hemoglobin A1c % Lactic Acid 5.7 H* Lactic Acid F/U @ 2Hr Lactic Acid F/U @ 4Hr Calcium Phosphorus Magnesium Total Bilirubin Direct Bilirubin AST ALT Alkaline Phosphatase C-Reactive Protein B-Natriuretic Peptide Total Protein Albumin Triglycerides Lipase Procalcitonin Urine Color Urine Appearance Urine pH Ur Specific [place] Urine Protein Urine Glucose (UA) Urine Ketones Urine Blood Urine Nitrite Ur Leukocyte Esterase Ur Random Sodium Random Vancomycin Heparin Dep Plt Ab OD Hep-Induced Plt Ab Britt C. difficile Tox B Gene COVID-19 ([facility]) COVID-19 Clin Com Blood Type Antibody Screen Crossmatch 05/23/22 05/24/22 05/24/22 22:22 01:00 01:00 WBC 13.9 H RBC 4.12 L Hgb 12.3 Hct 36.0 L MCV 87.4 MCH 29.9 MCHC 34.2 RDW 13.7 Plt Count 334 MPV 10.0 Immature Gran % (Auto) Cancelled Neut % (Auto) Cancelled Lymph % (Auto) Cancelled [place] % (Auto) Cancelled Eos % (Auto) Cancelled Baso % (Auto) Cancelled Lymph # (Auto) Cancelled [place] # (Auto) Cancelled Eos # (Auto) Cancelled Baso # (Auto) Cancelled Abs Immat Gran (auto) Cancelled Absolute Neuts (auto) Cancelled Absolute Nucleated RBC 0.110 H Nucleated RBC % (auto) 0.8 H Neutrophils % (Manual) 25 L Band Neutrophils % 41 H Lymphocytes % (Manual) 16 L Atypical Lymphs % (Man) Monocytes % (Manual) 8 Eosinophils % (Manual) Basophils % (Manual) Metamyelocytes % 7 Myelocytes % 3 Promyelocytes % Abs Neuts (Manual) 9.2 H Lymphocytes # (Manual) 2.2 Atyp Lymphs # (Manual) Monocytes # (Manual) 1.1 Eosinophils # (Manual) Basophils # (Manual) Metamyelocytes # 1.0 Myelocytes # 0.4 Promyelocytes # Nucleated RBCs Smudge Cells PRES Toxic Granulation Toxic Vacuolation Dohle Bodies PRESENT Platelet Estimate SLIGHTLY INCREASED Large Platelets PRESENT Plt Morphology Comment NORMAL RBC Morphology NOTED Polychromasia 1+ (0-2) Hypochromasia Microcytosis Macrocytosis 1+ (5-14) Spherocytes Ovalocytes 1+ (5-14) Stomatocytes Susan Cells Smear Tech's Comments ESR PT INR aPTT Heparin Protocol Hep-Ind Thrombocytop Com O2 Saturation ABG pH at Pt Temp ABG pCO2 at Pt Temp ABG pO2 at Pt Temp ABG HCO3 ABG Base Excess (Actual) VBG pH VBG pCO2 VBG pO2 VBG HCO3 VBG O2 Saturation VBG Base Excess Sodium 144 Potassium 3.8 Chloride 110 H Carbon Dioxide 16 L Anion Gap 22 H BUN 16 Creatinine 1.30 Estim Creat Clear Calc 45.4 Estimated GFR 42 POC Glucose Random Glucose 188 H Estimat Average Glucose Hemoglobin A1c % Lactic Acid Lactic Acid F/U @ 2Hr 6.4 H* Lactic Acid F/U @ 4Hr Calcium 7.1 L Phosphorus 5.7 H Magnesium 1.7 Total Bilirubin 1.3 H Direct Bilirubin AST 24 ALT 28 Alkaline Phosphatase 58 D C-Reactive Protein B-Natriuretic Peptide Total Protein 3.9 L D Albumin 2.9 L D Triglycerides Lipase Procalcitonin Urine Color Urine Appearance Urine pH Ur Specific [place] Urine Protein Urine Glucose (UA) Urine Ketones Urine Blood Urine Nitrite Ur Leukocyte Esterase Ur Random Sodium Random Vancomycin Heparin Dep Plt Ab OD Hep-Induced Plt Ab Britt C. difficile Tox B Gene COVID-19 ([facility]) COVID-19 Clin Com Blood Type Antibody Screen Crossmatch 05/24/22 05/24/22 05/24/22 01:00 04:55 04:55 WBC 17.2 H RBC 3.36 L Hgb 10.0 L Hct 29.4 L MCV 87.5 MCH 29.8 MCHC 34.0 RDW 13.6 Plt Count 275 MPV 10.4 Immature Gran % (Auto) Cancelled Neut % (Auto) Cancelled Lymph % (Auto) Cancelled [place] % (Auto) Cancelled Eos % (Auto) Cancelled Baso % (Auto) Cancelled Lymph # (Auto) Cancelled [place] # (Auto) Cancelled Eos # (Auto) Cancelled Baso # (Auto) Cancelled Abs Immat Gran (auto) Cancelled Absolute Neuts (auto) Cancelled Absolute Nucleated RBC 0.060 H Nucleated RBC % (auto) 0.3 H Neutrophils % (Manual) 37 L Band Neutrophils % 41 H Lymphocytes % (Manual) 15 L Atypical Lymphs % (Man) Monocytes % (Manual) 3 Eosinophils % (Manual) Basophils % (Manual) Metamyelocytes % 2 Myelocytes % 1 Promyelocytes % 1 Abs Neuts (Manual) 13.4 H Lymphocytes # (Manual) 2.6 Atyp Lymphs # (Manual) Monocytes # (Manual) 0.5 Eosinophils # (Manual) Basophils # (Manual) Metamyelocytes # 0.3 Myelocytes # 0.2 Promyelocytes # 0.2 Nucleated RBCs 2 H Smudge Cells PRES Toxic Granulation Toxic Vacuolation PRESENT Dohle Bodies PRESENT Platelet Estimate NORMAL Large Platelets Plt Morphology Comment NORMAL RBC Morphology NOTED Polychromasia 1+ (0-2) Hypochromasia Microcytosis Macrocytosis 1+ (5-14) Spherocytes Ovalocytes Stomatocytes Amonate Cells Smear Tech's Comments ESR PT INR aPTT Heparin Protocol Hep-Ind Thrombocytop Com O2 Saturation ABG pH at Pt Temp ABG pCO2 at Pt Temp ABG pO2 at Pt Temp ABG HCO3 ABG Base Excess (Actual) VBG pH VBG pCO2 VBG pO2 VBG HCO3 VBG O2 Saturation VBG Base Excess Sodium 141 Potassium 2.9 L D Chloride 107 Carbon Dioxide 20 L Anion Gap 17 BUN 17 H Creatinine 1.30 Estim Creat Clear Calc 45.4 Estimated GFR 42 POC Glucose Random Glucose 256 H Estimat Average Glucose Hemoglobin A1c % Lactic Acid Lactic Acid F/U @ 2Hr Lactic Acid F/U @ 4Hr 5.6 H* Calcium 7.0 L Phosphorus 4.1 Magnesium Total Bilirubin 1.3 H Direct Bilirubin AST 18 ALT 20 Alkaline Phosphatase 35 L D C-Reactive Protein B-Natriuretic Peptide Total Protein 4.0 L Albumin 3.3 L Triglycerides Lipase Procalcitonin Urine Color Urine Appearance Urine pH Ur Specific [place] Urine Protein Urine Glucose (UA) Urine Ketones Urine Blood Urine Nitrite Ur Leukocyte Esterase Ur Random Sodium Random Vancomycin Heparin Dep Plt Ab OD Hep-Induced Plt Ab Britt C. difficile Tox B Gene COVID-19 ([facility]) COVID-19 Clin Com Blood Type Antibody Screen Crossmatch 05/24/22 05/24/22 05/24/22 05:02 07:02 11:59 WBC RBC Hgb Hct MCV MCH MCHC RDW Plt Count MPV Immature Gran % (Auto) Neut % (Auto) Lymph % (Auto) [place] % (Auto) Eos % (Auto) Baso % (Auto) Lymph # (Auto) [place] # (Auto) Eos # (Auto) Baso # (Auto) Abs Immat Gran (auto) Absolute Neuts (auto) Absolute Nucleated RBC Nucleated RBC % (auto) Neutrophils % (Manual) Band Neutrophils % Lymphocytes % (Manual) Atypical Lymphs % (Man) Monocytes % (Manual) Eosinophils % (Manual) Basophils % (Manual) Metamyelocytes % Myelocytes % Promyelocytes % Abs Neuts (Manual) Lymphocytes # (Manual) Atyp Lymphs # (Manual) Monocytes # (Manual) Eosinophils # (Manual) Basophils # (Manual) Metamyelocytes # Myelocytes # Promyelocytes # Nucleated RBCs Smudge Cells Toxic Granulation Toxic Vacuolation Dohle Bodies Platelet Estimate Large Platelets Plt Morphology Comment RBC Morphology Polychromasia Hypochromasia Microcytosis Macrocytosis Spherocytes Ovalocytes Stomatocytes Amonate Cells Smear Tech's Comments ESR PT INR aPTT Heparin Protocol Hep-Ind Thrombocytop Com O2 Saturation 98.0 ABG pH at Pt Temp 7.40 ABG pCO2 at Pt Temp 32 ABG pO2 at Pt Temp 83 ABG HCO3 20 L ABG Base Excess (Actual) -3.3 VBG pH VBG pCO2 VBG pO2 VBG HCO3 VBG O2 Saturation VBG Base Excess Sodium Potassium Chloride Carbon Dioxide Anion Gap BUN Creatinine Estim Creat Clear Calc Estimated GFR POC Glucose Random Glucose Estimat Average Glucose Hemoglobin A1c % Lactic Acid 4.0 H* 3.5 H* Lactic Acid F/U @ 2Hr Lactic Acid F/U @ 4Hr Calcium Phosphorus Magnesium Total Bilirubin Direct Bilirubin AST ALT Alkaline Phosphatase C-Reactive Protein B-Natriuretic Peptide Total Protein Albumin Triglycerides Lipase Procalcitonin Urine Color Urine Appearance Urine pH Ur Specific [place] Urine Protein Urine Glucose (UA) Urine Ketones Urine Blood Urine Nitrite Ur Leukocyte Esterase Ur Random Sodium Random Vancomycin Heparin Dep Plt Ab OD Hep-Induced Plt Ab Britt C. difficile Tox B Gene COVID-19 ([facility]) COVID-19 Clin Com Blood Type Antibody Screen Crossmatch 05/24/22 05/24/22 05/24/22 12:00 12:00 12:09 WBC RBC Hgb Hct MCV MCH MCHC RDW Plt Count MPV Immature Gran % (Auto) Neut % (Auto) Lymph % (Auto) [place] % (Auto) Eos % (Auto) Baso % (Auto) Lymph # (Auto) [place] # (Auto) Eos # (Auto) Baso # (Auto) Abs Immat Gran (auto) Absolute Neuts (auto) Absolute Nucleated RBC Nucleated RBC % (auto) Neutrophils % (Manual) Band Neutrophils % Lymphocytes % (Manual) Atypical Lymphs % (Man) Monocytes % (Manual) Eosinophils % (Manual) Basophils % (Manual) Metamyelocytes % Myelocytes % Promyelocytes % Abs Neuts (Manual) Lymphocytes # (Manual) Atyp Lymphs # (Manual) Monocytes # (Manual) Eosinophils # (Manual) Basophils # (Manual) Metamyelocytes # Myelocytes # Promyelocytes # Nucleated RBCs Smudge Cells Toxic Granulation Toxic Vacuolation Dohle Bodies Platelet Estimate Large Platelets Plt Morphology Comment RBC Morphology Polychromasia Hypochromasia Microcytosis Macrocytosis Spherocytes Ovalocytes Stomatocytes Amonate Cells Smear Tech's Comments ESR PT INR aPTT Heparin Protocol Hep-Ind Thrombocytop Com O2 Saturation 99.0 ABG pH at Pt Temp 7.47 H ABG pCO2 at Pt Temp 31 L ABG pO2 at Pt Temp 88 ABG HCO3 23 ABG Base Excess (Actual) 0.4 VBG pH VBG pCO2 VBG pO2 VBG HCO3 VBG O2 Saturation VBG Base Excess Sodium 143 Potassium 2.9 L Chloride 107 Carbon Dioxide 23 Anion Gap 16 BUN 18 H Creatinine 1.26 Estim Creat Clear Calc 46.8 Estimated GFR 43 POC Glucose Random Glucose 270 H Estimat Average Glucose Hemoglobin A1c % Lactic Acid Lactic Acid F/U @ 2Hr Lactic Acid F/U @ 4Hr Calcium 7.0 L Phosphorus Magnesium 2.2 Total Bilirubin Direct Bilirubin AST ALT Alkaline Phosphatase C-Reactive Protein B-Natriuretic Peptide 3497 H Total Protein Albumin Triglycerides Lipase Procalcitonin Urine Color Urine Appearance Urine pH Ur Specific [place] Urine Protein Urine Glucose (UA) Urine Ketones Urine Blood Urine Nitrite Ur Leukocyte Esterase Ur Random Sodium Random Vancomycin Heparin Dep Plt Ab OD Hep-Induced Plt Ab Britt C. difficile Tox B Gene COVID-19 ([facility]) COVID-19 Clin Com Blood Type Antibody Screen Crossmatch 05/24/22 05/24/22 05/24/22 18:41 21:09 21:09 WBC RBC Hgb 10.2 L Hct 29.0 L MCV MCH MCHC RDW Plt Count MPV Immature Gran % (Auto) Neut % (Auto) Lymph % (Auto) [place] % (Auto) Eos % (Auto) Baso % (Auto) Lymph # (Auto) [place] # (Auto) Eos # (Auto) Baso # (Auto) Abs Immat Gran (auto) Absolute Neuts (auto) Absolute Nucleated RBC Nucleated RBC % (auto) Neutrophils % (Manual) Band Neutrophils % Lymphocytes % (Manual) Atypical Lymphs % (Man) Monocytes % (Manual) Eosinophils % (Manual) Basophils % (Manual) Metamyelocytes % Myelocytes % Promyelocytes % Abs Neuts (Manual) Lymphocytes # (Manual) Atyp Lymphs # (Manual) Monocytes # (Manual) Eosinophils # (Manual) Basophils # (Manual) Metamyelocytes # Myelocytes # Promyelocytes # Nucleated RBCs Smudge Cells Toxic Granulation Toxic Vacuolation Dohle Bodies Platelet Estimate Large Platelets Plt Morphology Comment RBC Morphology Polychromasia Hypochromasia Microcytosis Macrocytosis Spherocytes Ovalocytes Stomatocytes Amonate Cells Smear Tech's Comments ESR PT INR aPTT Heparin Protocol Hep-Ind Thrombocytop Com O2 Saturation ABG pH at Pt Temp ABG pCO2 at Pt Temp ABG pO2 at Pt Temp ABG HCO3 ABG Base Excess (Actual) VBG pH VBG pCO2 VBG pO2 VBG HCO3 VBG O2 Saturation VBG Base Excess Sodium 145 Potassium 3.6 D Chloride 111 H Carbon Dioxide 23 Anion Gap 15 BUN 21 H Creatinine 1.59 H Estim Creat Clear Calc 37.1 Estimated GFR 33 POC Glucose 178 H Random Glucose 234 H Estimat Average Glucose Hemoglobin A1c % Lactic Acid Lactic Acid F/U @ 2Hr Lactic Acid F/U @ 4Hr Calcium 6.8 L Phosphorus Magnesium Total Bilirubin Direct Bilirubin AST ALT Alkaline Phosphatase C-Reactive Protein B-Natriuretic Peptide Total Protein Albumin Triglycerides Lipase Procalcitonin Urine Color Urine Appearance Urine pH Ur Specific [place] Urine Protein Urine Glucose (UA) Urine Ketones Urine Blood Urine Nitrite Ur Leukocyte Esterase Ur Random Sodium Random Vancomycin Heparin Dep Plt Ab OD Hep-Induced Plt Ab Britt C. difficile Tox B Gene COVID-19 ([facility]) COVID-19 Clin Com Blood Type Antibody Screen Crossmatch 05/24/22 05/24/22 05/24/22 21:09 21:13 23:29 WBC RBC Hgb Hct MCV MCH MCHC RDW Plt Count MPV Immature Gran % (Auto) Neut % (Auto) Lymph % (Auto) [place] % (Auto) Eos % (Auto) Baso % (Auto) Lymph # (Auto) [place] # (Auto) Eos # (Auto) Baso # (Auto) Abs Immat Gran (auto) Absolute Neuts (auto) Absolute Nucleated RBC Nucleated RBC % (auto) Neutrophils % (Manual) Band Neutrophils % Lymphocytes % (Manual) Atypical Lymphs % (Man) Monocytes % (Manual) Eosinophils % (Manual) Basophils % (Manual) Metamyelocytes % Myelocytes % Promyelocytes % Abs Neuts (Manual) Lymphocytes # (Manual) Atyp Lymphs # (Manual) Monocytes # (Manual) Eosinophils # (Manual) Basophils # (Manual) Metamyelocytes # Myelocytes # Promyelocytes # Nucleated RBCs Smudge Cells Toxic Granulation Toxic Vacuolation Dohle Bodies Platelet Estimate Large Platelets Plt Morphology Comment RBC Morphology Polychromasia Hypochromasia Microcytosis Macrocytosis Spherocytes Ovalocytes Stomatocytes Amonate Cells Smear Tech's Comments ESR PT INR aPTT Heparin Protocol Hep-Ind Thrombocytop Com O2 Saturation ABG pH at Pt Temp ABG pCO2 at Pt Temp ABG pO2 at Pt Temp ABG HCO3 ABG Base Excess (Actual) VBG pH 7.46 H VBG pCO2 32 VBG pO2 98 VBG HCO3 23 VBG O2 Saturation 99.0 VBG Base Excess 0.6 Sodium Potassium Chloride Carbon Dioxide Anion Gap BUN Creatinine Estim Creat Clear Calc Estimated GFR POC Glucose 202 H Random Glucose Estimat Average Glucose Hemoglobin A1c % Lactic Acid 2.7 H* Lactic Acid F/U @ 2Hr Lactic Acid F/U @ 4Hr Calcium Phosphorus Magnesium Total Bilirubin Direct Bilirubin AST ALT Alkaline Phosphatase C-Reactive Protein B-Natriuretic Peptide Total Protein Albumin Triglycerides Lipase Procalcitonin Urine Color Urine Appearance Urine pH Ur Specific [place] Urine Protein Urine Glucose (UA) Urine Ketones Urine Blood Urine Nitrite Ur Leukocyte Esterase Ur Random Sodium Random Vancomycin Heparin Dep Plt Ab OD Hep-Induced Plt Ab Britt C. difficile Tox B Gene COVID-19 ([facility]) COVID-19 Clin Com Blood Type Antibody Screen Crossmatch 05/25/22 05/25/22 05/25/22 05:10 05:10 05:10 WBC 20.1 H RBC 2.77 L Hgb 8.3 L Hct 24.5 L MCV 88.4 MCH 30.0 MCHC 33.9 RDW 14.1 Plt Count 143 L D MPV 10.3 Immature Gran % (Auto) Cancelled Neut % (Auto) Cancelled Lymph % (Auto) Cancelled [place] % (Auto) Cancelled Eos % (Auto) Cancelled Baso % (Auto) Cancelled Lymph # (Auto) Cancelled [place] # (Auto) Cancelled Eos # (Auto) Cancelled Baso # (Auto) Cancelled Abs Immat Gran (auto) Cancelled Absolute Neuts (auto) Cancelled Absolute Nucleated RBC 0.020 H Nucleated RBC % (auto) 0.1 Neutrophils % (Manual) 61 Band Neutrophils % 16 H Lymphocytes % (Manual) 22 Atypical Lymphs % (Man) Monocytes % (Manual) 1 L Eosinophils % (Manual) Basophils % (Manual) Metamyelocytes % Myelocytes % Promyelocytes % Abs Neuts (Manual) 15.5 H Lymphocytes # (Manual) 4.4 Atyp Lymphs # (Manual) Monocytes # (Manual) 0.2 Eosinophils # (Manual) Basophils # (Manual) Metamyelocytes # Myelocytes # Promyelocytes # Nucleated RBCs Smudge Cells PRESENT Toxic Granulation Toxic Vacuolation Dohle Bodies PRESENT Platelet Estimate SLIGHTLY DECREASED Large Platelets Plt Morphology Comment NORMAL RBC Morphology NOTED Polychromasia 1+ (0-2) Hypochromasia Microcytosis Macrocytosis 1+ (5-14) Spherocytes Ovalocytes Stomatocytes Amonate Cells Smear Tech's Comments ESR PT INR aPTT Heparin Protocol Hep-Ind Thrombocytop Com O2 Saturation ABG pH at Pt Temp ABG pCO2 at Pt Temp ABG pO2 at Pt Temp ABG HCO3 ABG Base Excess (Actual) VBG pH VBG pCO2 VBG pO2 VBG HCO3 VBG O2 Saturation VBG Base Excess Sodium 146 H Potassium 3.5 Chloride 112 H Carbon Dioxide 25 Anion Gap 13 BUN 24 H Creatinine 1.70 H Estim Creat Clear Calc 40.0 Estimated GFR 31 POC Glucose Random Glucose 219 H Estimat Average Glucose Hemoglobin A1c % Lactic Acid 1.8 Lactic Acid F/U @ 2Hr Lactic Acid F/U @ 4Hr Calcium 7.4 L D Phosphorus 3.1 Magnesium 2.3 Total Bilirubin 0.9 Direct Bilirubin AST 21 ALT 14 Alkaline Phosphatase 36 L C-Reactive Protein 43.83 H B-Natriuretic Peptide Total Protein 4.1 L Albumin 3.1 L Triglycerides 126 Lipase Procalcitonin Urine Color Urine Appearance Urine pH Ur Specific [place] Urine Protein Urine Glucose (UA) Urine Ketones Urine Blood Urine Nitrite Ur Leukocyte Esterase Ur Random Sodium Random Vancomycin Heparin Dep Plt Ab OD Hep-Induced Plt Ab Britt C. difficile Tox B Gene COVID-19 ([facility]) COVID-19 Clin Com Blood Type Antibody Screen Crossmatch 05/25/22 05/25/22 05/25/22 05:12 05:20 12:02 WBC RBC Hgb Hct MCV MCH MCHC RDW Plt Count MPV Immature Gran % (Auto) Neut % (Auto) Lymph % (Auto) [place] % (Auto) Eos % (Auto) Baso % (Auto) Lymph # (Auto) [place] # (Auto) Eos # (Auto) Baso # (Auto) Abs Immat Gran (auto) Absolute Neuts (auto) Absolute Nucleated RBC Nucleated RBC % (auto) Neutrophils % (Manual) Band Neutrophils % Lymphocytes % (Manual) Atypical Lymphs % (Man) Monocytes % (Manual) Eosinophils % (Manual) Basophils % (Manual) Metamyelocytes % Myelocytes % Promyelocytes % Abs Neuts (Manual) Lymphocytes # (Manual) Atyp Lymphs # (Manual) Monocytes # (Manual) Eosinophils # (Manual) Basophils # (Manual) Metamyelocytes # Myelocytes # Promyelocytes # Nucleated RBCs Smudge Cells Toxic Granulation Toxic Vacuolation Dohle Bodies Platelet Estimate Large Platelets Plt Morphology Comment RBC Morphology Polychromasia Hypochromasia Microcytosis Macrocytosis Spherocytes Ovalocytes Stomatocytes Susan Cells Smear Tech's Comments ESR PT INR aPTT Heparin Protocol Hep-Ind Thrombocytop Com O2 Saturation 98.0 ABG pH at Pt Temp 7.42 ABG pCO2 at Pt Temp 38 ABG pO2 at Pt Temp 92 ABG HCO3 25 ABG Base Excess (Actual) 0.8 VBG pH VBG pCO2 VBG pO2 VBG HCO3 VBG O2 Saturation VBG Base Excess Sodium Potassium Chloride Carbon Dioxide Anion Gap BUN Creatinine Estim Creat Clear Calc Estimated GFR POC Glucose 175 H 158 H Random Glucose Estimat Average Glucose Hemoglobin A1c % Lactic Acid Lactic Acid F/U @ 2Hr Lactic Acid F/U @ 4Hr Calcium Phosphorus Magnesium Total Bilirubin Direct Bilirubin AST ALT Alkaline Phosphatase C-Reactive Protein B-Natriuretic Peptide Total Protein Albumin Triglycerides Lipase Procalcitonin Urine Color Urine Appearance Urine pH Ur Specific [place] Urine Protein Urine Glucose (UA) Urine Ketones Urine Blood Urine Nitrite Ur Leukocyte Esterase Ur Random Sodium Random Vancomycin Heparin Dep Plt Ab OD Hep-Induced Plt Ab Britt C. difficile Tox B Gene COVID-19 ([facility]) COVID-19 Clin Com Blood Type Antibody Screen Crossmatch 05/25/22 05/25/22 05/26/22 17:45 Unknown 00:21 WBC RBC Hgb Hct MCV MCH MCHC RDW Plt Count MPV Immature Gran % (Auto) Neut % (Auto) Lymph % (Auto) [place] % (Auto) Eos % (Auto) Baso % (Auto) Lymph # (Auto) [place] # (Auto) Eos # (Auto) Baso # (Auto) Abs Immat Gran (auto) Absolute Neuts (auto) Absolute Nucleated RBC Nucleated RBC % (auto) Neutrophils % (Manual) Band Neutrophils % Lymphocytes % (Manual) Atypical Lymphs % (Man) Monocytes % (Manual) Eosinophils % (Manual) Basophils % (Manual) Metamyelocytes % Myelocytes % Promyelocytes % Abs Neuts (Manual) Lymphocytes # (Manual) Atyp Lymphs # (Manual) Monocytes # (Manual) Eosinophils # (Manual) Basophils # (Manual) Metamyelocytes # Myelocytes # Promyelocytes # Nucleated RBCs Smudge Cells Toxic Granulation Toxic Vacuolation Dohle Bodies Platelet Estimate Large Platelets Plt Morphology Comment RBC Morphology Polychromasia Hypochromasia Microcytosis Macrocytosis Spherocytes Ovalocytes Stomatocytes Amonate Cells Smear Tech's Comments ESR PT INR aPTT Heparin Protocol Hep-Ind Thrombocytop Com O2 Saturation ABG pH at Pt Temp ABG pCO2 at Pt Temp ABG pO2 at Pt Temp ABG HCO3 ABG Base Excess (Actual) VBG pH VBG pCO2 VBG pO2 VBG HCO3 VBG O2 Saturation VBG Base Excess Sodium Potassium Chloride Carbon Dioxide Anion Gap BUN Creatinine Estim Creat Clear Calc Estimated GFR POC Glucose 125 H 182 H Random Glucose Estimat Average Glucose Hemoglobin A1c % Lactic Acid Lactic Acid F/U @ 2Hr Lactic Acid F/U @ 4Hr Calcium Phosphorus Magnesium Total Bilirubin Direct Bilirubin AST ALT Alkaline Phosphatase C-Reactive Protein B-Natriuretic Peptide Total Protein Albumin Triglycerides Lipase Procalcitonin Urine Color Urine Appearance Urine pH Ur Specific [place] Urine Protein Urine Glucose (UA) Urine Ketones Urine Blood Urine Nitrite Ur Leukocyte Esterase Ur Random Sodium < 20.0 Random Vancomycin Heparin Dep Plt Ab OD Hep-Induced Plt Ab Britt C. difficile Tox B Gene COVID-19 ([facility]) COVID-19 Clin Com Blood Type Antibody Screen Crossmatch 05/26/22 05/26/22 05/26/22 05:18 05:18 05:18 WBC 16.7 H RBC 2.59 L Hgb 7.7 L Hct 23.7 L MCV 91.5 MCH 29.7 MCHC 32.5 RDW 14.6 Plt Count 94 L D MPV 10.2 Immature Gran % (Auto) Neut % (Auto) Lymph % (Auto) [place] % (Auto) Eos % (Auto) Baso % (Auto) Lymph # (Auto) [place] # (Auto) Eos # (Auto) Baso # (Auto) Abs Immat Gran (auto) Absolute Neuts (auto) Absolute Nucleated RBC 0.000 Nucleated RBC % (auto) 0.0 Neutrophils % (Manual) Band Neutrophils % Lymphocytes % (Manual) Atypical Lymphs % (Man) Monocytes % (Manual) Eosinophils % (Manual) Basophils % (Manual) Metamyelocytes % Myelocytes % Promyelocytes % Abs Neuts (Manual) Lymphocytes # (Manual) Atyp Lymphs # (Manual) Monocytes # (Manual) Eosinophils # (Manual) Basophils # (Manual) Metamyelocytes # Myelocytes # Promyelocytes # Nucleated RBCs Smudge Cells Toxic Granulation Toxic Vacuolation Dohle Bodies Platelet Estimate Large Platelets Plt Morphology Comment RBC Morphology Polychromasia Hypochromasia Microcytosis Macrocytosis Spherocytes Ovalocytes Stomatocytes Susan Cells Smear Tech's Comments ESR PT INR aPTT Heparin Protocol Hep-Ind Thrombocytop Com O2 Saturation ABG pH at Pt Temp ABG pCO2 at Pt Temp ABG pO2 at Pt Temp ABG HCO3 ABG Base Excess (Actual) VBG pH VBG pCO2 VBG pO2 VBG HCO3 VBG O2 Saturation VBG Base Excess Sodium 147 H Potassium 3.4 Chloride 114 H Carbon Dioxide 23 Anion Gap 13 BUN 32 H Creatinine 1.58 H Estim Creat Clear Calc 43.0 Estimated GFR 33 POC Glucose Random Glucose 187 H Estimat Average Glucose Hemoglobin A1c % Lactic Acid 1.2 Lactic Acid F/U @ 2Hr Lactic Acid F/U @ 4Hr Calcium 7.3 L Phosphorus 3.9 Magnesium 2.4 Total Bilirubin Direct Bilirubin AST ALT Alkaline Phosphatase C-Reactive Protein B-Natriuretic Peptide Total Protein Albumin 2.8 L Triglycerides Lipase Procalcitonin Urine Color Urine Appearance Urine pH Ur Specific [place] Urine Protein Urine Glucose (UA) Urine Ketones Urine Blood Urine Nitrite Ur Leukocyte Esterase Ur Random Sodium Random Vancomycin Heparin Dep Plt Ab OD Hep-Induced Plt Ab Britt C. difficile Tox B Gene COVID-19 ([facility]) COVID-19 [facility] Blood Type Antibody Screen Crossmatch 05/26/22 05/26/22 05/26/22 05:20 05:24 11:25 WBC RBC Hgb Hct MCV MCH MCHC RDW Plt Count MPV Immature Gran % (Auto) Neut % (Auto) Lymph % (Auto) [place] % (Auto) Eos % (Auto) Baso % (Auto) Lymph # (Auto) [place] # (Auto) Eos # (Auto) Baso # (Auto) Abs Immat Gran (auto) Absolute Neuts (auto) Absolute Nucleated RBC Nucleated RBC % (auto) Neutrophils % (Manual) Band Neutrophils % Lymphocytes % (Manual) Atypical Lymphs % (Man) Monocytes % (Manual) Eosinophils % (Manual) Basophils % (Manual) Metamyelocytes % Myelocytes % Promyelocytes % Abs Neuts (Manual) Lymphocytes # (Manual) Atyp Lymphs # (Manual) Monocytes # (Manual) Eosinophils # (Manual) Basophils # (Manual) Metamyelocytes # Myelocytes # Promyelocytes # Nucleated RBCs Smudge Cells Toxic Granulation Toxic Vacuolation Dohle Bodies Platelet Estimate Large Platelets Plt Morphology Comment RBC Morphology Polychromasia Hypochromasia Microcytosis Macrocytosis Spherocytes Ovalocytes Stomatocytes Susan Cells Smear Tech's Comments ESR PT INR aPTT Heparin Protocol Hep-Ind Thrombocytop Com O2 Saturation ABG pH at Pt Temp ABG pCO2 at Pt Temp ABG pO2 at Pt Temp ABG HCO3 ABG Base Excess (Actual) VBG pH 7.37 VBG pCO2 39 VBG pO2 46 VBG HCO3 23 VBG O2 Saturation 75.0 VBG Base Excess -1.6 Sodium Potassium Chloride Carbon Dioxide Anion Gap BUN Creatinine Estim Creat Clear Calc Estimated GFR POC Glucose 166 H 189 H Random Glucose Estimat Average Glucose Hemoglobin A1c % Lactic Acid Lactic Acid F/U @ 2Hr Lactic Acid F/U @ 4Hr Calcium Phosphorus Magnesium Total Bilirubin Direct Bilirubin AST ALT Alkaline Phosphatase C-Reactive Protein B-Natriuretic Peptide Total Protein Albumin Triglycerides Lipase Procalcitonin Urine Color Urine Appearance Urine pH Ur Specific [place] Urine Protein Urine Glucose (UA) Urine Ketones Urine Blood Urine Nitrite Ur Leukocyte Esterase Ur Random Sodium Random Vancomycin Heparin Dep Plt Ab OD Hep-Induced Plt Ab Britt C. difficile Tox B Gene COVID-19 ([facility]) COVID-19 Clin Com Blood Type Antibody Screen Crossmatch 05/26/22 05/26/22 05/26/22 17:48 19:34 19:36 WBC 13.2 H RBC 2.66 L Hgb 7.8 L Hct 24.7 L MCV 92.9 MCH 29.3 MCHC 31.6 RDW 14.9 Plt Count 87 L MPV 10.5 Immature Gran % (Auto) Cancelled Neut % (Auto) Cancelled Lymph % (Auto) Cancelled [place] % (Auto) Cancelled Eos % (Auto) Cancelled Baso % (Auto) Cancelled Lymph # (Auto) Cancelled [place] # (Auto) Cancelled Eos # (Auto) Cancelled Baso # (Auto) Cancelled Abs Immat Gran (auto) Cancelled Absolute Neuts (auto) Cancelled Absolute Nucleated RBC 0.020 H Nucleated RBC % (auto) 0.2 Neutrophils % (Manual) 82 H Band Neutrophils % 10 H Lymphocytes % (Manual) 7 L Atypical Lymphs % (Man) Monocytes % (Manual) 1 L Eosinophils % (Manual) Basophils % (Manual) Metamyelocytes % Myelocytes % Promyelocytes % Abs Neuts (Manual) 12.1 H Lymphocytes # (Manual) 0.9 L Atyp Lymphs # (Manual) Monocytes # (Manual) 0.1 Eosinophils # (Manual) Basophils # (Manual) Metamyelocytes # Myelocytes # Promyelocytes # Nucleated RBCs Smudge Cells Toxic Granulation Toxic Vacuolation Dohle Bodies PRESENT Platelet Estimate DECREASED Large Platelets Plt Morphology Comment NORMAL RBC Morphology NOTED Polychromasia 1+ (0-2) Hypochromasia 1+ (5-14) Microcytosis Macrocytosis Spherocytes Ovalocytes Stomatocytes Amonate Cells Smear Tech's Comments ESR PT INR aPTT Heparin Protocol Hep-Ind Thrombocytop Com O2 Saturation 96.0 ABG pH at Pt Temp 7.32 L ABG pCO2 at Pt Temp 44 ABG pO2 at Pt Temp 82 L ABG HCO3 23 ABG Base Excess (Actual) -2.9 VBG pH VBG pCO2 VBG pO2 VBG HCO3 VBG O2 Saturation VBG Base Excess Sodium Potassium Chloride Carbon Dioxide Anion Gap BUN Creatinine Estim Creat Clear Calc Estimated GFR POC Glucose 177 H Random Glucose Estimat Average Glucose Hemoglobin A1c % Lactic Acid Lactic Acid F/U @ 2Hr Lactic Acid F/U @ 4Hr Calcium Phosphorus Magnesium Total Bilirubin Direct Bilirubin AST ALT Alkaline Phosphatase C-Reactive Protein B-Natriuretic Peptide Total Protein Albumin Triglycerides Lipase Procalcitonin Urine Color Urine Appearance Urine pH Ur Specific [place] Urine Protein Urine Glucose (UA) Urine Ketones Urine Blood Urine Nitrite Ur Leukocyte Esterase Ur Random Sodium Random Vancomycin Heparin Dep Plt Ab OD Hep-Induced Plt Ab Britt C. difficile Tox B Gene COVID-19 ([facility]) COVID-19 Clin Com Blood Type Antibody Screen Crossmatch 05/26/22 05/26/22 05/27/22 19:36 23:57 05:10 WBC 8.2 RBC 2.17 L Hgb 6.4 L* Hct 20.1 L* MCV 92.6 MCH 29.5 MCHC 31.8 RDW 14.9 Plt Count 69 L MPV 11.1 Immature Gran % (Auto) Neut % (Auto) Lymph % (Auto) [place] % (Auto) Eos % (Auto) Baso % (Auto) Lymph # (Auto) [place] # (Auto) Eos # (Auto) Baso # (Auto) Abs Immat Gran (auto) Absolute Neuts (auto) Absolute Nucleated RBC 0.000 Nucleated RBC % (auto) 0.0 Neutrophils % (Manual) Band Neutrophils % Lymphocytes % (Manual) Atypical Lymphs % (Man) Monocytes % (Manual) Eosinophils % (Manual) Basophils % (Manual) Metamyelocytes % Myelocytes % Promyelocytes % Abs Neuts (Manual) Lymphocytes # (Manual) Atyp Lymphs # (Manual) Monocytes # (Manual) Eosinophils # (Manual) Basophils # (Manual) Metamyelocytes # Myelocytes # Promyelocytes # Nucleated RBCs Smudge Cells Toxic Granulation Toxic Vacuolation Dohle Bodies Platelet Estimate Large Platelets Plt Morphology Comment RBC Morphology Polychromasia Hypochromasia Microcytosis Macrocytosis Spherocytes Ovalocytes Stomatocytes Amonate Cells Smear Tech's Comments ESR PT INR aPTT Heparin Protocol Hep-Ind Thrombocytop Com O2 Saturation ABG pH at Pt Temp ABG pCO2 at Pt Temp ABG pO2 at Pt Temp ABG HCO3 ABG Base Excess (Actual) VBG pH VBG pCO2 VBG pO2 VBG HCO3 VBG O2 Saturation VBG Base Excess Sodium 145 Potassium 4.2 D Chloride 114 H Carbon Dioxide 23 Anion Gap 12 BUN 35 H Creatinine 1.29 Estim Creat Clear Calc 52.7 Estimated GFR 42 POC Glucose 157 H Random Glucose 192 H Estimat Average Glucose Hemoglobin A1c % Lactic Acid Lactic Acid F/U @ 2Hr Lactic Acid F/U @ 4Hr Calcium 7.4 L Phosphorus Magnesium Total Bilirubin 0.4 Direct Bilirubin AST 36 H D ALT 23 Alkaline Phosphatase 61 D C-Reactive Protein B-Natriuretic Peptide Total Protein 4.3 L Albumin 2.6 L Triglycerides Lipase Procalcitonin Urine Color Urine Appearance Urine pH Ur Specific [place] Urine Protein Urine Glucose (UA) Urine Ketones Urine Blood Urine Nitrite Ur Leukocyte Esterase Ur Random Sodium Random Vancomycin Heparin Dep Plt Ab OD Hep-Induced Plt Ab Britt C. difficile Tox B Gene COVID-19 ([facility]) COVID-19 Clin Com Blood Type Antibody Screen Crossmatch 05/27/22 05/27/22 05/27/22 05:10 05:10 05:21 WBC RBC Hgb Hct MCV MCH MCHC RDW Plt Count MPV Immature Gran % (Auto) Neut % (Auto) Lymph % (Auto) [place] % (Auto) Eos % (Auto) Baso % (Auto) Lymph # (Auto) [place] # (Auto) Eos # (Auto) Baso # (Auto) Abs Immat Gran (auto) Absolute Neuts (auto) Absolute Nucleated RBC Nucleated RBC % (auto) Neutrophils % (Manual) Band Neutrophils % Lymphocytes % (Manual) Atypical Lymphs % (Man) Monocytes % (Manual) Eosinophils % (Manual) Basophils % (Manual) Metamyelocytes % Myelocytes % Promyelocytes % Abs Neuts (Manual) Lymphocytes # (Manual) Atyp Lymphs # (Manual) Monocytes # (Manual) Eosinophils # (Manual) Basophils # (Manual) Metamyelocytes # Myelocytes # Promyelocytes # Nucleated RBCs Smudge Cells Toxic Granulation Toxic Vacuolation Dohle Bodies Platelet Estimate Large Platelets Plt Morphology Comment RBC Morphology Polychromasia Hypochromasia Microcytosis Macrocytosis Spherocytes Ovalocytes Stomatocytes Susan Cells Smear Tech's Comments ESR PT 11.6 INR 1.0 aPTT Heparin Protocol Hep-Ind Thrombocytop Com O2 Saturation ABG pH at Pt Temp ABG pCO2 at Pt Temp ABG pO2 at Pt Temp ABG HCO3 ABG Base Excess (Actual) VBG pH 7.41 VBG pCO2 36 VBG pO2 52 VBG HCO3 23 VBG O2 Saturation 86.0 VBG Base Excess -0.8 Sodium 147 H Potassium 3.9 Chloride 114 H Carbon Dioxide 24 Anion Gap 13 BUN 37 H Creatinine 1.28 Estim Creat Clear Calc 53.1 Estimated GFR 42 POC Glucose Random Glucose 163 H Estimat Average Glucose Hemoglobin A1c % Lactic Acid Lactic Acid F/U @ 2Hr Lactic Acid F/U @ 4Hr Calcium 8.1 L D Phosphorus 2.2 L Magnesium 2.4 Total Bilirubin 0.6 Direct Bilirubin AST 25 ALT 18 Alkaline Phosphatase 40 D C-Reactive Protein B-Natriuretic Peptide Total Protein 4.9 L Albumin 3.6 D Triglycerides Lipase Procalcitonin Urine Color Urine Appearance Urine pH Ur Specific [place] Urine Protein Urine Glucose (UA) Urine Ketones Urine Blood Urine Nitrite Ur Leukocyte Esterase Ur Random Sodium Random Vancomycin Heparin Dep Plt Ab OD Hep-Induced Plt Ab Britt C. difficile Tox B Gene COVID-19 ([facility]) COVID-19 Clin Com Blood Type Antibody Screen Crossmatch 05/27/22 05/27/22 05/27/22 06:38 06:38 12:01 WBC RBC Hgb Hct MCV MCH MCHC RDW Plt Count MPV Immature Gran % (Auto) Neut % (Auto) Lymph % (Auto) [place] % (Auto) Eos % (Auto) Baso % (Auto) Lymph # (Auto) [place] # (Auto) Eos # (Auto) Baso # (Auto) Abs Immat Gran (auto) Absolute Neuts (auto) Absolute Nucleated RBC Nucleated RBC % (auto) Neutrophils % (Manual) Band Neutrophils % Lymphocytes % (Manual) Atypical Lymphs % (Man) Monocytes % (Manual) Eosinophils % (Manual) Basophils % (Manual) Metamyelocytes % Myelocytes % Promyelocytes % Abs Neuts (Manual) Lymphocytes # (Manual) Atyp Lymphs # (Manual) Monocytes # (Manual) Eosinophils # (Manual) Basophils # (Manual) Metamyelocytes # Myelocytes # Promyelocytes # Nucleated RBCs Smudge Cells Toxic Granulation Toxic Vacuolation Dohle Bodies Platelet Estimate Large Platelets Plt Morphology Comment RBC Morphology Polychromasia Hypochromasia Microcytosis Macrocytosis Spherocytes Ovalocytes Stomatocytes Amonate Cells Smear Tech's Comments ESR PT INR aPTT Heparin Protocol Hep-Ind Thrombocytop Com TNP O2 Saturation ABG pH at Pt Temp ABG pCO2 at Pt Temp ABG pO2 at Pt Temp ABG HCO3 ABG Base Excess (Actual) VBG pH VBG pCO2 VBG pO2 VBG HCO3 VBG O2 Saturation VBG Base Excess Sodium Potassium Chloride Carbon Dioxide Anion Gap BUN Creatinine Estim Creat Clear Calc Estimated GFR POC Glucose 211 H Random Glucose Estimat Average Glucose Hemoglobin A1c % Lactic Acid Lactic Acid F/U @ 2Hr Lactic Acid F/U @ 4Hr Calcium Phosphorus Magnesium Total Bilirubin Direct Bilirubin AST ALT Alkaline Phosphatase C-Reactive Protein B-Natriuretic Peptide Total Protein Albumin Triglycerides Lipase Procalcitonin Urine Color Urine Appearance Urine pH Ur Specific [place] Urine Protein Urine Glucose (UA) Urine Ketones Urine Blood Urine Nitrite Ur Leukocyte Esterase Ur Random Sodium Random Vancomycin Heparin Dep Plt Ab OD 0.026 Hep-Induced Plt Ab Britt Negative C. difficile Tox B Gene COVID-19 ([facility]) COVID-19 Clin Com Blood Type B Positive Antibody Screen NEGATIVE Crossmatch See Detail 05/27/22 05/27/22 05/27/22 17:32 20:28 20:28 WBC 7.0 RBC 2.68 L D Hgb 8.1 L D Hct 24.9 L D MCV 92.9 MCH 30.2 MCHC 32.5 RDW 14.8 Plt Count 78 L MPV 11.8 Immature Gran % (Auto) Cancelled Neut % (Auto) Cancelled Lymph % (Auto) Cancelled [place] % (Auto) Cancelled Eos % (Auto) Cancelled Baso % (Auto) Cancelled Lymph # (Auto) Cancelled [place] # (Auto) Cancelled Eos # (Auto) Cancelled Baso # (Auto) Cancelled Abs Immat Gran (auto) Cancelled Absolute Neuts (auto) Cancelled Absolute Nucleated RBC 0.020 H Nucleated RBC % (auto) 0.3 H Neutrophils % (Manual) 81 H Band Neutrophils % 5 Lymphocytes % (Manual) 10 L Atypical Lymphs % (Man) Monocytes % (Manual) 4 Eosinophils % (Manual) Basophils % (Manual) Metamyelocytes % Myelocytes % Promyelocytes % Abs Neuts (Manual) 6.0 Lymphocytes # (Manual) 0.7 L Atyp Lymphs # (Manual) Monocytes # (Manual) 0.3 Eosinophils # (Manual) Basophils # (Manual) Metamyelocytes # Myelocytes # Promyelocytes # Nucleated RBCs Smudge Cells Toxic Granulation PRESENT Toxic Vacuolation PRESENT Dohle Bodies PRESENT Platelet Estimate DECREASED Large Platelets Plt Morphology Comment NORMAL RBC Morphology NOTED Polychromasia 1+ (0-2) Hypochromasia 1+ (5-14) Microcytosis 1+ (5-14) Macrocytosis Spherocytes Ovalocytes Stomatocytes Amonate Cells 2+ (3-5) Smear Tech's Comments ESR PT INR aPTT Heparin Protocol Hep-Ind Thrombocytop Com O2 Saturation ABG pH at Pt Temp ABG pCO2 at Pt Temp ABG pO2 at Pt Temp ABG HCO3 ABG Base Excess (Actual) VBG pH VBG pCO2 VBG pO2 VBG HCO3 VBG O2 Saturation VBG Base Excess Sodium 143 Potassium 4.4 Chloride 112 H Carbon Dioxide 22 Anion Gap 13 BUN 40 H Creatinine 1.07 Estim Creat Clear Calc 63.6 Estimated GFR 52 POC Glucose 224 H Random Glucose 196 H Estimat Average Glucose Hemoglobin A1c % Lactic Acid Lactic Acid F/U @ 2Hr Lactic Acid F/U @ 4Hr Calcium 7.6 L D Phosphorus Magnesium Total Bilirubin 1.7 H Direct Bilirubin AST 27 ALT 22 Alkaline Phosphatase 52 D C-Reactive Protein B-Natriuretic Peptide Total Protein 4.5 L Albumin 3.0 L Triglycerides Lipase Procalcitonin Urine Color Urine Appearance Urine pH Ur Specific [place] Urine Protein Urine Glucose (UA) Urine Ketones Urine Blood Urine Nitrite Ur Leukocyte Esterase Ur Random Sodium Random Vancomycin Heparin Dep Plt Ab OD Hep-Induced Plt Ab Britt C. difficile Tox B Gene COVID-19 ([facility]) COVID-19 Clin Com Blood Type Antibody Screen Crossmatch 05/27/22 05/28/22 05/28/22 23:52 05:12 05:12 WBC 6.3 RBC 2.50 L Hgb 7.5 L Hct 23.5 L MCV 94.0 MCH 30.0 MCHC 31.9 RDW 14.8 Plt Count 90 L MPV 11.2 Immature Gran % (Auto) Cancelled Neut % (Auto) Cancelled Lymph % (Auto) Cancelled [place] % (Auto) Cancelled Eos % (Auto) Cancelled Baso % (Auto) Cancelled Lymph # (Auto) Cancelled [place] # (Auto) Cancelled Eos # (Auto) Cancelled Baso # (Auto) Cancelled Abs Immat Gran (auto) Cancelled Absolute Neuts (auto) Cancelled Absolute Nucleated RBC 0.000 Nucleated RBC % (auto) 0.0 Neutrophils % (Manual) 58 Band Neutrophils % 4 Lymphocytes % (Manual) 28 Atypical Lymphs % (Man) 2 Monocytes % (Manual) 2 Eosinophils % (Manual) 6 H Basophils % (Manual) Metamyelocytes % Myelocytes % Promyelocytes % Abs Neuts (Manual) 3.9 Lymphocytes # (Manual) 1.8 Atyp Lymphs # (Manual) 0.1 Monocytes # (Manual) 0.1 Eosinophils # (Manual) 0.4 Basophils # (Manual) Metamyelocytes # Myelocytes # Promyelocytes # Nucleated RBCs Smudge Cells Toxic Granulation PRESENT Toxic Vacuolation PRESENT Dohle Bodies PRESENT Platelet Estimate DECREASED Large Platelets Plt Morphology Comment NORMAL RBC Morphology NOTED Polychromasia Hypochromasia 1+ (5-14) Microcytosis Macrocytosis Spherocytes Ovalocytes Stomatocytes Amonate Cells Smear Tech's Comments ESR PT INR aPTT Heparin Protocol Hep-Ind Thrombocytop Com O2 Saturation ABG pH at Pt Temp ABG pCO2 at Pt Temp ABG pO2 at Pt Temp ABG HCO3 ABG Base Excess (Actual) VBG pH VBG pCO2 VBG pO2 VBG HCO3 VBG O2 Saturation VBG Base Excess Sodium 144 Potassium 4.4 Chloride 113 H Carbon Dioxide 23 Anion Gap 12 BUN 41 H Creatinine 1.12 Estim Creat Clear Calc 60.8 Estimated GFR 49 POC Glucose 143 H Random Glucose 157 H Estimat Average Glucose Hemoglobin A1c % Lactic Acid Lactic Acid F/U @ 2Hr Lactic Acid F/U @ 4Hr Calcium 8.0 L Phosphorus 3.0 Magnesium 2.1 Total Bilirubin 1.5 H Direct Bilirubin AST 45 H D ALT 33 H Alkaline Phosphatase 53 C-Reactive Protein B-Natriuretic Peptide Total Protein 5.0 L Albumin 3.8 D Triglycerides Lipase Procalcitonin Urine Color Urine Appearance Urine pH Ur Specific [place] Urine Protein Urine Glucose (UA) Urine Ketones Urine Blood Urine Nitrite Ur Leukocyte Esterase Ur Random Sodium Random Vancomycin Heparin Dep Plt Ab OD Hep-Induced Plt Ab Britt C. difficile Tox B Gene COVID-19 ([facility]) COVID-19 Clin Com Blood Type Antibody Screen Crossmatch 05/28/22 05/28/22 05/28/22 05:12 11:42 18:04 WBC RBC Hgb Hct MCV MCH MCHC RDW Plt Count MPV Immature Gran % (Auto) Neut % (Auto) Lymph % (Auto) [place] % (Auto) Eos % (Auto) Baso % (Auto) Lymph # (Auto) [place] # (Auto) Eos # (Auto) Baso # (Auto) Abs Immat Gran (auto) Absolute Neuts (auto) Absolute Nucleated RBC Nucleated RBC % (auto) Neutrophils % (Manual) Band Neutrophils % Lymphocytes % (Manual) Atypical Lymphs % (Man) Monocytes % (Manual) Eosinophils % (Manual) Basophils % (Manual) Metamyelocytes % Myelocytes % Promyelocytes % Abs Neuts (Manual) Lymphocytes # (Manual) Atyp Lymphs # (Manual) Monocytes # (Manual) Eosinophils # (Manual) Basophils # (Manual) Metamyelocytes # Myelocytes # Promyelocytes # Nucleated RBCs Smudge Cells Toxic Granulation Toxic Vacuolation Dohle Bodies Platelet Estimate Large Platelets Plt Morphology Comment RBC Morphology Polychromasia Hypochromasia Microcytosis Macrocytosis Spherocytes Ovalocytes Stomatocytes Susan Cells Smear Tech's Comments ESR PT INR aPTT Heparin Protocol Hep-Ind Thrombocytop Com O2 Saturation ABG pH at Pt Temp ABG pCO2 at Pt Temp ABG pO2 at Pt Temp ABG HCO3 ABG Base Excess (Actual) VBG pH 7.36 VBG pCO2 39 VBG pO2 39 VBG HCO3 22 VBG O2 Saturation 66.0 VBG Base Excess -2.5 Sodium Potassium Chloride Carbon Dioxide Anion Gap BUN Creatinine Estim Creat Clear Calc Estimated GFR POC Glucose 146 H 194 H Random Glucose Estimat Average Glucose Hemoglobin A1c % Lactic Acid Lactic Acid F/U @ 2Hr Lactic Acid F/U @ 4Hr Calcium Phosphorus Magnesium Total Bilirubin Direct Bilirubin AST ALT Alkaline Phosphatase C-Reactive Protein B-Natriuretic Peptide Total Protein Albumin Triglycerides Lipase Procalcitonin Urine Color Urine Appearance Urine pH Ur Specific [place] Urine Protein Urine Glucose (UA) Urine Ketones Urine Blood Urine Nitrite Ur Leukocyte Esterase Ur Random Sodium Random Vancomycin Heparin Dep Plt Ab OD Hep-Induced Plt Ab Britt C. difficile Tox B Gene COVID-19 ([facility]) COVID-19 Clin Com Blood Type Antibody Screen Crossmatch 05/28/22 05/29/22 05/29/22 23:33 05:12 05:14 WBC 11.4 H RBC 3.43 L D Hgb 9.9 L D Hct 31.1 L D MCV 90.7 MCH 28.9 MCHC 31.8 RDW 17.1 H Plt Count 131 L D MPV 12.2 Immature Gran % (Auto) Cancelled Neut % (Auto) Cancelled Lymph % (Auto) Cancelled [place] % (Auto) Cancelled Eos % (Auto) Cancelled Baso % (Auto) Cancelled Lymph # (Auto) Cancelled [place] # (Auto) Cancelled Eos # (Auto) Cancelled Baso # (Auto) Cancelled Abs Immat Gran (auto) Cancelled Absolute Neuts (auto) Cancelled Absolute Nucleated RBC 0.030 H Nucleated RBC % (auto) 0.3 H Neutrophils % (Manual) 62 Band Neutrophils % 22 H Lymphocytes % (Manual) 9 L Atypical Lymphs % (Man) Monocytes % (Manual) 1 L Eosinophils % (Manual) 4 Basophils % (Manual) Metamyelocytes % 2 Myelocytes % Promyelocytes % Abs Neuts (Manual) 9.6 H Lymphocytes # (Manual) 1.0 L Atyp Lymphs # (Manual) Monocytes # (Manual) 0.1 Eosinophils # (Manual) 0.5 H Basophils # (Manual) Metamyelocytes # 0.2 Myelocytes # Promyelocytes # Nucleated RBCs 1 H Smudge Cells Toxic Granulation PRESENT Toxic Vacuolation Dohle Bodies PRESENT Platelet Estimate SLIGHTLY DECREASED Large Platelets Plt Morphology Comment NORMAL RBC Morphology NOTED Polychromasia Hypochromasia 1+ (5-14) Microcytosis Macrocytosis Spherocytes Ovalocytes Stomatocytes Amonate Cells 1+ (0-2) Smear Tech's Comments ESR PT INR aPTT Heparin Protocol Hep-Ind Thrombocytop Com O2 Saturation ABG pH at Pt Temp ABG pCO2 at Pt Temp ABG pO2 at Pt Temp ABG HCO3 ABG Base Excess (Actual) VBG pH 7.39 VBG pCO2 33 VBG pO2 79 VBG HCO3 20 L VBG O2 Saturation 96.0 VBG Base Excess -3.6 Sodium Potassium Chloride Carbon Dioxide Anion Gap BUN Creatinine Estim Creat Clear Calc Estimated GFR POC Glucose 214 H Random Glucose Estimat Average Glucose Hemoglobin A1c % Lactic Acid Lactic Acid F/U @ 2Hr Lactic Acid F/U @ 4Hr Calcium Phosphorus Magnesium Total Bilirubin Direct Bilirubin AST ALT Alkaline Phosphatase C-Reactive Protein B-Natriuretic Peptide Total Protein Albumin Triglycerides Lipase Procalcitonin Urine Color Urine Appearance Urine pH Ur Specific [place] Urine Protein Urine Glucose (UA) Urine Ketones Urine Blood Urine Nitrite Ur Leukocyte Esterase Ur Random Sodium Random Vancomycin Heparin Dep Plt Ab OD Hep-Induced Plt Ab Britt C. difficile Tox B Gene COVID-19 ([facility]) COVID-19 Clin Com Blood Type Antibody Screen Crossmatch 05/29/22 05/29/22 05/29/22 05:14 05:14 05:36 WBC RBC Hgb Hct MCV MCH MCHC RDW Plt Count MPV Immature Gran % (Auto) Neut % (Auto) Lymph % (Auto) [place] % (Auto) Eos % (Auto) Baso % (Auto) Lymph # (Auto) [place] # (Auto) Eos # (Auto) Baso # (Auto) Abs Immat Gran (auto) Absolute Neuts (auto) Absolute Nucleated RBC Nucleated RBC % (auto) Neutrophils % (Manual) Band Neutrophils % Lymphocytes % (Manual) Atypical Lymphs % (Man) Monocytes % (Manual) Eosinophils % (Manual) Basophils % (Manual) Metamyelocytes % Myelocytes % Promyelocytes % Abs Neuts (Manual) Lymphocytes # (Manual) Atyp Lymphs # (Manual) Monocytes # (Manual) Eosinophils # (Manual) Basophils # (Manual) Metamyelocytes # Myelocytes # Promyelocytes # Nucleated RBCs Smudge Cells Toxic Granulation Toxic Vacuolation Dohle Bodies Platelet Estimate Large Platelets Plt Morphology Comment RBC Morphology Polychromasia Hypochromasia Microcytosis Macrocytosis Spherocytes Ovalocytes Stomatocytes Amonate Cells Smear Tech's Comments ESR PT INR aPTT Heparin Protocol Hep-Ind Thrombocytop Com O2 Saturation ABG pH at Pt Temp ABG pCO2 at Pt Temp ABG pO2 at Pt Temp ABG HCO3 ABG Base Excess (Actual) VBG pH VBG pCO2 VBG pO2 VBG HCO3 VBG O2 Saturation VBG Base Excess Sodium 141 Potassium 5.0 Chloride 111 H Carbon Dioxide 19 L Anion Gap 16 BUN 41 H Creatinine 1.18 Estim Creat Clear Calc 57.6 Estimated GFR 47 POC Glucose 231 H Random Glucose 255 H Estimat Average Glucose Hemoglobin A1c % Lactic Acid Lactic Acid F/U @ 2Hr Lactic Acid F/U @ 4Hr Calcium 7.9 L Phosphorus 4.3 Magnesium 2.0 Total Bilirubin 2.9 H Direct Bilirubin AST 38 H ALT 30 Alkaline Phosphatase 60 C-Reactive Protein B-Natriuretic Peptide 885 H Total Protein 4.6 L Albumin 2.6 L D Triglycerides Lipase Procalcitonin Urine Color Urine Appearance Urine pH Ur Specific [place] Urine Protein Urine Glucose (UA) Urine Ketones Urine Blood Urine Nitrite Ur Leukocyte Esterase Ur Random Sodium Random Vancomycin Heparin Dep Plt Ab OD Hep-Induced Plt Ab Britt C. difficile Tox B Gene COVID-19 ([facility]) COVID-19 Clin Com Blood Type Antibody Screen Crossmatch 05/29/22 05/29/22 05/29/22 11:46 17:42 18:42 WBC RBC Hgb Hct MCV MCH MCHC RDW Plt Count MPV Immature Gran % (Auto) Neut % (Auto) Lymph % (Auto) [place] % (Auto) Eos % (Auto) Baso % (Auto) Lymph # (Auto) [place] # (Auto) Eos # (Auto) Baso # (Auto) Abs Immat Gran (auto) Absolute Neuts (auto) Absolute Nucleated RBC Nucleated RBC % (auto) Neutrophils % (Manual) Band Neutrophils % Lymphocytes % (Manual) Atypical Lymphs % (Man) Monocytes % (Manual) Eosinophils % (Manual) Basophils % (Manual) Metamyelocytes % Myelocytes % Promyelocytes % Abs Neuts (Manual) Lymphocytes # (Manual) Atyp Lymphs # (Manual) Monocytes # (Manual) Eosinophils # (Manual) Basophils # (Manual) Metamyelocytes # Myelocytes # Promyelocytes # Nucleated RBCs Smudge Cells Toxic Granulation Toxic Vacuolation Dohle Bodies Platelet Estimate Large Platelets Plt Morphology Comment RBC Morphology Polychromasia Hypochromasia Microcytosis Macrocytosis Spherocytes Ovalocytes Stomatocytes Amonate Cells Smear Tech's Comments ESR PT INR aPTT Heparin Protocol Hep-Ind Thrombocytop Com O2 Saturation ABG pH at Pt Temp ABG pCO2 at Pt Temp ABG pO2 at Pt Temp ABG HCO3 ABG Base Excess (Actual) VBG pH VBG pCO2 VBG pO2 VBG HCO3 VBG O2 Saturation VBG Base Excess Sodium 141 Potassium 5.0 Chloride 110 H Carbon Dioxide 21 L Anion Gap 15 BUN 43 H Creatinine 1.15 Estim Creat Clear Calc 59.2 Estimated GFR 48 POC Glucose 251 H 275 H Random Glucose 306 H Estimat Average Glucose Hemoglobin A1c % Lactic Acid Lactic Acid F/U @ 2Hr Lactic Acid F/U @ 4Hr Calcium 7.5 L Phosphorus Magnesium Total Bilirubin Direct Bilirubin AST ALT Alkaline Phosphatase C-Reactive Protein B-Natriuretic Peptide Total Protein Albumin Triglycerides Lipase Procalcitonin Urine Color Urine Appearance Urine pH Ur Specific [place] Urine Protein Urine Glucose (UA) Urine Ketones Urine Blood Urine Nitrite Ur Leukocyte Esterase Ur Random Sodium Random Vancomycin Heparin Dep Plt Ab OD Hep-Induced Plt Ab Britt C. difficile Tox B Gene COVID-19 ([facility]) COVID-19 Clin Com Blood Type Antibody Screen Crossmatch 05/29/22 05/29/22 05/29/22 18:42 18:50 20:48 WBC RBC Hgb Hct MCV MCH MCHC RDW Plt Count MPV Immature Gran % (Auto) Neut % (Auto) Lymph % (Auto) [place] % (Auto) Eos % (Auto) Baso % (Auto) Lymph # (Auto) [place] # (Auto) Eos # (Auto) Baso # (Auto) Abs Immat Gran (auto) Absolute Neuts (auto) Absolute Nucleated RBC Nucleated RBC % (auto) Neutrophils % (Manual) Band Neutrophils % Lymphocytes % (Manual) Atypical Lymphs % (Man) Monocytes % (Manual) Eosinophils % (Manual) Basophils % (Manual) Metamyelocytes % Myelocytes % Promyelocytes % Abs Neuts (Manual) Lymphocytes # (Manual) Atyp Lymphs # (Manual) Monocytes # (Manual) Eosinophils # (Manual) Basophils # (Manual) Metamyelocytes # Myelocytes # Promyelocytes # Nucleated RBCs Smudge Cells Toxic Granulation Toxic Vacuolation Dohle Bodies Platelet Estimate Large Platelets Plt Morphology Comment RBC Morphology Polychromasia Hypochromasia Microcytosis Macrocytosis Spherocytes Ovalocytes Stomatocytes Amonate Cells Smear Tech's Comments ESR PT INR aPTT Heparin Protocol Hep-Ind Thrombocytop Com O2 Saturation ABG pH at Pt Temp ABG pCO2 at Pt Temp ABG pO2 at Pt Temp ABG HCO3 ABG Base Excess (Actual) VBG pH 7.37 VBG pCO2 34 VBG pO2 55 VBG HCO3 20 L VBG O2 Saturation 85.0 VBG Base Excess -3.9 Sodium 141 Potassium 5.0 Chloride 110 H Carbon Dioxide 21 L Anion Gap 15 BUN 44 H Creatinine 1.11 Estim Creat Clear Calc 61.3 Estimated GFR 50 POC Glucose Random Glucose 325 H Estimat Average Glucose Hemoglobin A1c % Lactic Acid 2.1 H* Lactic Acid F/U @ 2Hr Lactic Acid F/U @ 4Hr Calcium 7.7 L Phosphorus Magnesium Total Bilirubin Direct Bilirubin AST ALT Alkaline Phosphatase C-Reactive Protein B-Natriuretic Peptide Total Protein Albumin Triglycerides Lipase Procalcitonin Urine Color Urine Appearance Urine pH Ur Specific [place] Urine Protein Urine Glucose (UA) Urine Ketones Urine Blood Urine Nitrite Ur Leukocyte Esterase Ur Random Sodium Random Vancomycin Heparin Dep Plt Ab OD Hep-Induced Plt Ab Britt C. difficile Tox B Gene COVID-19 ([facility]) COVID-19 Clin Com Blood Type Antibody Screen Crossmatch 05/29/22 05/29/22 05/30/22 20:48 23:24 05:00 WBC RBC Hgb Hct MCV MCH MCHC RDW Plt Count MPV Immature Gran % (Auto) Neut % (Auto) Lymph % (Auto) [place] % (Auto) Eos % (Auto) Baso % (Auto) Lymph # (Auto) [place] # (Auto) Eos # (Auto) Baso # (Auto) Abs Immat Gran (auto) Absolute Neuts (auto) Absolute Nucleated RBC Nucleated RBC % (auto) Neutrophils % (Manual) Band Neutrophils % Lymphocytes % (Manual) Atypical Lymphs % (Man) Monocytes % (Manual) Eosinophils % (Manual) Basophils % (Manual) Metamyelocytes % Myelocytes % Promyelocytes % Abs Neuts (Manual) Lymphocytes # (Manual) Atyp Lymphs # (Manual) Monocytes # (Manual) Eosinophils # (Manual) Basophils # (Manual) Metamyelocytes # Myelocytes # Promyelocytes # Nucleated RBCs Smudge Cells Toxic Granulation Toxic Vacuolation Dohle Bodies Platelet Estimate Large Platelets Plt Morphology Comment RBC Morphology Polychromasia Hypochromasia Microcytosis Macrocytosis Spherocytes Ovalocytes Stomatocytes Susan Cells Smear Tech's Comments ESR PT INR aPTT Heparin Protocol Hep-Ind Thrombocytop Com O2 Saturation ABG pH at Pt Temp ABG pCO2 at Pt Temp ABG pO2 at Pt Temp ABG HCO3 ABG Base Excess (Actual) VBG pH VBG pCO2 VBG pO2 VBG HCO3 VBG O2 Saturation VBG Base Excess Sodium Potassium Chloride Carbon Dioxide Anion Gap BUN Creatinine Estim Creat Clear Calc Estimated GFR POC Glucose 298 H Random Glucose Estimat Average Glucose Hemoglobin A1c % Lactic Acid Lactic Acid F/U @ 2Hr 2.1 H* Lactic Acid F/U @ 4Hr 2.3 H* Calcium Phosphorus Magnesium Total Bilirubin Direct Bilirubin AST ALT Alkaline Phosphatase C-Reactive Protein B-Natriuretic Peptide Total Protein Albumin Triglycerides Lipase Procalcitonin Urine Color Urine Appearance Urine pH Ur Specific [place] Urine Protein Urine Glucose (UA) Urine Ketones Urine Blood Urine Nitrite Ur Leukocyte Esterase Ur Random Sodium Random Vancomycin Heparin Dep Plt Ab OD Hep-Induced Plt Ab Britt C. difficile Tox B Gene COVID-19 ([facility]) COVID-19 Clin Com Blood Type Antibody Screen Crossmatch 05/30/22 05/30/22 05/30/22 05:00 05:00 05:00 WBC 20.1 H RBC 3.99 L Hgb 11.6 L Hct 36.1 L MCV 90.5 MCH 29.1 MCHC 32.1 RDW 16.9 H Plt Count 258 D MPV 12.7 H Immature Gran % (Auto) Cancelled Neut % (Auto) Cancelled Lymph % (Auto) Cancelled [place] % (Auto) Cancelled Eos % (Auto) Cancelled Baso % (Auto) Cancelled Lymph # (Auto) Cancelled [place] # (Auto) Cancelled Eos # (Auto) Cancelled Baso # (Auto) Cancelled Abs Immat Gran (auto) Cancelled Absolute Neuts (auto) Cancelled Absolute Nucleated RBC 0.000 Nucleated RBC % (auto) 0.0 Neutrophils % (Manual) 62 Band Neutrophils % 29 H Lymphocytes % (Manual) 5 L Atypical Lymphs % (Man) Monocytes % (Manual) 1 L Eosinophils % (Manual) Basophils % (Manual) Metamyelocytes % 3 Myelocytes % Promyelocytes % Abs Neuts (Manual) 18.3 H Lymphocytes # (Manual) 1.0 L Atyp Lymphs # (Manual) Monocytes # (Manual) 0.2 Eosinophils # (Manual) Basophils # (Manual) Metamyelocytes # 0.6 Myelocytes # Promyelocytes # Nucleated RBCs Smudge Cells Toxic Granulation PRESENT Toxic Vacuolation Dohle Bodies Platelet Estimate NORMAL Large Platelets PRESENT Plt Morphology Comment NOTE RBC Morphology NOTED Polychromasia 1+ (0-2) Hypochromasia Microcytosis 1+ (5-14) Macrocytosis Spherocytes 1+ (0-2) Ovalocytes Stomatocytes Amonate Cells 1+ (0-2) Smear Tech's Comments ESR PT INR aPTT Heparin Protocol Hep-Ind Thrombocytop Com O2 Saturation ABG pH at Pt Temp ABG pCO2 at Pt Temp ABG pO2 at Pt Temp ABG HCO3 ABG Base Excess (Actual) VBG pH VBG pCO2 VBG pO2 VBG HCO3 VBG O2 Saturation VBG Base Excess Sodium 142 Potassium 5.0 Chloride 109 H Carbon Dioxide 21 L Anion Gap 17 BUN 47 H Creatinine 1.05 Estim Creat Clear Calc 64.8 Estimated GFR 53 POC Glucose Random Glucose 393 H* Estimat Average Glucose Hemoglobin A1c % Lactic Acid Lactic Acid F/U @ 2Hr Lactic Acid F/U @ 4Hr Calcium 7.4 L Phosphorus 5.0 H Magnesium 2.0 Total Bilirubin 1.5 H Direct Bilirubin AST 22 D ALT 22 Alkaline Phosphatase 64 C-Reactive Protein 32.85 H B-Natriuretic Peptide Total Protein 4.4 L Albumin 2.4 L Triglycerides Lipase Procalcitonin 10.31 Urine Color Urine Appearance Urine pH Ur Specific [place] Urine Protein Urine Glucose (UA) Urine Ketones Urine Blood Urine Nitrite Ur Leukocyte Esterase Ur Random Sodium Random Vancomycin Heparin Dep Plt Ab OD Hep-Induced Plt Ab Britt C. difficile Tox B Gene COVID-19 ([facility]ER) COVID-19 Clin Com Blood Type Antibody Screen Crossmatch 05/30/22 05/30/22 05/30/22 05:07 05:33 12:30 WBC RBC Hgb Hct MCV MCH MCHC RDW Plt Count MPV Immature Gran % (Auto) Neut % (Auto) Lymph % (Auto) [place] % (Auto) Eos % (Auto) Baso % (Auto) Lymph # (Auto) [place] # (Auto) Eos # (Auto) Baso # (Auto) Abs Immat Gran (auto) Absolute Neuts (auto) Absolute Nucleated RBC Nucleated RBC % (auto) Neutrophils % (Manual) Band Neutrophils % Lymphocytes % (Manual) Atypical Lymphs % (Man) Monocytes % (Manual) Eosinophils % (Manual) Basophils % (Manual) Metamyelocytes % Myelocytes % Promyelocytes % Abs Neuts (Manual) Lymphocytes # (Manual) Atyp Lymphs # (Manual) Monocytes # (Manual) Eosinophils # (Manual) Basophils # (Manual) Metamyelocytes # Myelocytes # Promyelocytes # Nucleated RBCs Smudge Cells Toxic Granulation Toxic Vacuolation Dohle Bodies Platelet Estimate Large Platelets Plt Morphology Comment RBC Morphology Polychromasia Hypochromasia Microcytosis Macrocytosis Spherocytes Ovalocytes Stomatocytes Susan Cells Smear Tech's Comments ESR PT INR aPTT Heparin Protocol Hep-Ind Thrombocytop Com O2 Saturation ABG pH at Pt Temp ABG pCO2 at Pt Temp ABG pO2 at Pt Temp ABG HCO3 ABG Base Excess (Actual) VBG pH 7.34 VBG pCO2 38 VBG pO2 48 VBG HCO3 21 L VBG O2 Saturation 76.0 VBG Base Excess -4.1 Sodium Potassium Chloride Carbon Dioxide Anion Gap BUN Creatinine Estim Creat Clear Calc Estimated GFR POC Glucose 328 H 327 H Random Glucose Estimat Average Glucose Hemoglobin A1c % Lactic Acid Lactic Acid F/U @ 2Hr Lactic Acid F/U @ 4Hr Calcium Phosphorus Magnesium Total Bilirubin Direct Bilirubin AST ALT Alkaline Phosphatase C-Reactive Protein B-Natriuretic Peptide Total Protein Albumin Triglycerides Lipase Procalcitonin Urine Color Urine Appearance Urine pH Ur Specific [place] Urine Protein Urine Glucose (UA) Urine Ketones Urine Blood Urine Nitrite Ur Leukocyte Esterase Ur Random Sodium Random Vancomycin Heparin Dep Plt Ab OD Hep-Induced Plt Ab Britt C. difficile Tox B Gene COVID-19 ([facility]ER) COVID-19 Clin Com Blood Type Antibody Screen Crossmatch 05/30/22 05/30/22 05/31/22 18:24 23:22 05:12 WBC 12.5 H RBC 2.90 L D Hgb 8.6 L D Hct 26.5 L D MCV 91.4 MCH 29.7 MCHC 32.5 RDW 16.7 H Plt Count 180 D MPV 12.7 H Immature Gran % (Auto) Cancelled Neut % (Auto) Cancelled Lymph % (Auto) Cancelled Lipscomb % (Auto) Cancelled Eos % (Auto) Cancelled Baso % (Auto) Cancelled Lymph # (Auto) Cancelled [place] # (Auto) Cancelled Eos # (Auto) Cancelled Baso # (Auto) Cancelled Abs Immat Gran (auto) Cancelled Absolute Neuts (auto) Cancelled Absolute Nucleated RBC 0.000 Nucleated RBC % (auto) 0.0 Neutrophils % (Manual) 74 H Band Neutrophils % 12 H Lymphocytes % (Manual) 6 L Atypical Lymphs % (Man) Monocytes % (Manual) 5 Eosinophils % (Manual) 3 Basophils % (Manual) Metamyelocytes % Myelocytes % Promyelocytes % Abs Neuts (Manual) 10.8 H Lymphocytes # (Manual) 0.8 L Atyp Lymphs # (Manual) Monocytes # (Manual) 0.6 Eosinophils # (Manual) 0.4 Basophils # (Manual) Metamyelocytes # Myelocytes # Promyelocytes # Nucleated RBCs Smudge Cells Toxic Granulation PRESENT Toxic Vacuolation Dohle Bodies PRESENT Platelet Estimate NORMAL Large Platelets PRESENT Plt Morphology Comment NOTED RBC Morphology NOTED Polychromasia 1+ (0-2) Hypochromasia 1+ (5-14) Microcytosis 1+ (5-14) Macrocytosis Spherocytes Ovalocytes Stomatocytes Amonate Cells 1+ (0-2) Smear Tech's Comments ESR PT INR aPTT Heparin Protocol Hep-Ind Thrombocytop Com O2 Saturation ABG pH at Pt Temp ABG pCO2 at Pt Temp ABG pO2 at Pt Temp ABG HCO3 ABG Base Excess (Actual) VBG pH VBG pCO2 VBG pO2 VBG HCO3 VBG O2 Saturation VBG Base Excess Sodium Potassium Chloride Carbon Dioxide Anion Gap BUN Creatinine Estim Creat Clear Calc Estimated GFR POC Glucose 312 H 275 H Random Glucose Estimat Average Glucose Hemoglobin A1c % Lactic Acid Lactic Acid F/U @ 2Hr Lactic Acid F/U @ 4Hr Calcium Phosphorus Magnesium Total Bilirubin Direct Bilirubin AST ALT Alkaline Phosphatase C-Reactive Protein B-Natriuretic Peptide Total Protein Albumin Triglycerides Lipase Procalcitonin Urine Color Urine Appearance Urine pH Ur Specific [place] Urine Protein Urine Glucose (UA) Urine Ketones Urine Blood Urine Nitrite Ur Leukocyte Esterase Ur Random Sodium Random Vancomycin Heparin Dep Plt Ab OD Hep-Induced Plt Ab Britt C. difficile Tox B Gene COVID-19 ([facility]) COVID-19 Clin Com Blood Type Antibody Screen Crossmatch 05/31/22 05/31/22 05/31/22 05:12 05:13 05:17 WBC RBC Hgb Hct MCV MCH MCHC RDW Plt Count MPV Immature Gran % (Auto) Neut % (Auto) Lymph % (Auto) [place] % (Auto) Eos % (Auto) Baso % (Auto) Lymph # (Auto) [place] # (Auto) Eos # (Auto) Baso # (Auto) Abs Immat Gran (auto) Absolute Neuts (auto) Absolute Nucleated RBC Nucleated RBC % (auto) Neutrophils % (Manual) Band Neutrophils % Lymphocytes % (Manual) Atypical Lymphs % (Man) Monocytes % (Manual) Eosinophils % (Manual) Basophils % (Manual) Metamyelocytes % Myelocytes % Promyelocytes % Abs Neuts (Manual) Lymphocytes # (Manual) Atyp Lymphs # (Manual) Monocytes # (Manual) Eosinophils # (Manual) Basophils # (Manual) Metamyelocytes # Myelocytes # Promyelocytes # Nucleated RBCs Smudge Cells Toxic Granulation Toxic Vacuolation Dohle Bodies Platelet Estimate Large Platelets Plt Morphology Comment RBC Morphology Polychromasia Hypochromasia Microcytosis Macrocytosis Spherocytes Ovalocytes Stomatocytes Amonate Cells Smear Tech's Comments ESR PT INR aPTT Heparin Protocol Hep-Ind Thrombocytop Com O2 Saturation ABG pH at Pt Temp ABG pCO2 at Pt Temp ABG pO2 at Pt Temp ABG HCO3 ABG Base Excess (Actual) VBG pH 7.41 VBG pCO2 37 VBG pO2 44 VBG HCO3 23 VBG O2 Saturation 73.0 VBG Base Excess -0.6 Sodium 144 Potassium 4.4 Chloride 110 H Carbon Dioxide 24 Anion Gap 14 BUN 47 H Creatinine 1.07 Estim Creat Clear Calc 63.6 Estimated GFR 52 POC Glucose 231 H Random Glucose 286 H Estimat Average Glucose Hemoglobin A1c % Lactic Acid Lactic Acid F/U @ 2Hr Lactic Acid F/U @ 4Hr Calcium 7.8 L Phosphorus 3.6 Magnesium 2.0 Total Bilirubin 0.8 Direct Bilirubin AST 19 ALT 16 Alkaline Phosphatase 52 C-Reactive Protein B-Natriuretic Peptide Total Protein 4.6 L Albumin 2.8 L Triglycerides Lipase Procalcitonin Urine Color Urine Appearance Urine pH Ur Specific [place] Urine Protein Urine Glucose (UA) Urine Ketones Urine Blood Urine Nitrite Ur Leukocyte Esterase Ur Random Sodium Random Vancomycin Heparin Dep Plt Ab OD Hep-Induced Plt Ab Britt C. difficile Tox B Gene COVID-19 ([facility]) COVID-19 Clin Com Blood Type Antibody Screen Crossmatch 05/31/22 05/31/22 05/31/22 11:53 17:40 23:47 WBC RBC Hgb Hct MCV MCH MCHC RDW Plt Count MPV Immature Gran % (Auto) Neut % (Auto) Lymph % (Auto) [place] % (Auto) Eos % (Auto) Baso % (Auto) Lymph # (Auto) [place] # (Auto) Eos # (Auto) Baso # (Auto) Abs Immat Gran (auto) Absolute Neuts (auto) Absolute Nucleated RBC Nucleated RBC % (auto) Neutrophils % (Manual) Band Neutrophils % Lymphocytes % (Manual) Atypical Lymphs % (Man) Monocytes % (Manual) Eosinophils % (Manual) Basophils % (Manual) Metamyelocytes % Myelocytes % Promyelocytes % Abs Neuts (Manual) Lymphocytes # (Manual) Atyp Lymphs # (Manual) Monocytes # (Manual) Eosinophils # (Manual) Basophils # (Manual) Metamyelocytes # Myelocytes # Promyelocytes # Nucleated RBCs Smudge Cells Toxic Granulation Toxic Vacuolation Dohle Bodies Platelet Estimate Large Platelets Plt Morphology Comment RBC Morphology Polychromasia Hypochromasia Microcytosis Macrocytosis Spherocytes Ovalocytes Stomatocytes Susan Cells Smear Tech's Comments ESR PT INR aPTT Heparin Protocol Hep-Ind Thrombocytop Com O2 Saturation ABG pH at Pt Temp ABG pCO2 at Pt Temp ABG pO2 at Pt Temp ABG HCO3 ABG Base Excess (Actual) VBG pH VBG pCO2 VBG pO2 VBG HCO3 VBG O2 Saturation VBG Base Excess Sodium Potassium Chloride Carbon Dioxide Anion Gap BUN Creatinine Estim Creat Clear Calc Estimated GFR POC Glucose 262 H 241 H 222 H Random Glucose Estimat Average Glucose Hemoglobin A1c % Lactic Acid Lactic Acid F/U @ 2Hr Lactic Acid F/U @ 4Hr Calcium Phosphorus Magnesium Total Bilirubin Direct Bilirubin AST ALT Alkaline Phosphatase C-Reactive Protein B-Natriuretic Peptide Total Protein Albumin Triglycerides Lipase Procalcitonin Urine Color Urine Appearance Urine pH Ur Specific [place] Urine Protein Urine Glucose (UA) Urine Ketones Urine Blood Urine Nitrite Ur Leukocyte Esterase Ur Random Sodium Random Vancomycin Heparin Dep Plt Ab OD Hep-Induced Plt Ab Britt C. difficile Tox B Gene COVID-19 ([facility]) COVID-19 Clin Com Blood Type Antibody Screen Crossmatch 06/01/22 06/01/22 06/01/22 05:05 05:05 05:07 WBC 12.4 H RBC 2.76 L Hgb 8.1 L Hct 24.4 L MCV 88.4 MCH 29.3 MCHC 33.2 RDW 16.7 H Plt Count 209 MPV 12.2 Immature Gran % (Auto) Cancelled Neut % (Auto) Cancelled Lymph % (Auto) Cancelled [place] % (Auto) Cancelled Eos % (Auto) Cancelled Baso % (Auto) Cancelled Lymph # (Auto) Cancelled [place] # (Auto) Cancelled Eos # (Auto) Cancelled Baso # (Auto) Cancelled Abs Immat Gran (auto) Cancelled Absolute Neuts (auto) Cancelled Absolute Nucleated RBC 0.000 Nucleated RBC % (auto) 0.0 Neutrophils % (Manual) 85 H Band Neutrophils % 3 Lymphocytes % (Manual) 6 L Atypical Lymphs % (Man) Monocytes % (Manual) 4 Eosinophils % (Manual) 2 Basophils % (Manual) Metamyelocytes % Myelocytes % Promyelocytes % Abs Neuts (Manual) 10.9 H Lymphocytes # (Manual) 0.7 L Atyp Lymphs # (Manual) Monocytes # (Manual) 0.5 Eosinophils # (Manual) 0.2 Basophils # (Manual) Metamyelocytes # Myelocytes # Promyelocytes # Nucleated RBCs Smudge Cells Toxic Granulation PRESENT Toxic Vacuolation PRESENT Dohle Bodies PRESENT Platelet Estimate NORMAL Large Platelets Plt Morphology Comment NORMAL RBC Morphology NOTED Polychromasia 1+ (0-2) Hypochromasia 1+ (5-14) Microcytosis Macrocytosis Spherocytes Ovalocytes Stomatocytes Amonate Cells 1+ (0-2) Smear Tech's Comments ESR PT INR aPTT Heparin Protocol Hep-Ind Thrombocytop Com O2 Saturation ABG pH at Pt Temp ABG pCO2 at Pt Temp ABG pO2 at Pt Temp ABG HCO3 ABG Base Excess (Actual) VBG pH 7.52 H VBG pCO2 26 VBG pO2 38 VBG HCO3 21 L VBG O2 Saturation 66.0 VBG Base Excess -0.1 Sodium 143 Potassium 3.8 Chloride 111 H Carbon Dioxide 21 L Anion Gap 15 BUN 45 H Creatinine 1.01 Estim Creat Clear Calc 67.4 Estimated GFR 56 POC Glucose Random Glucose 284 H Estimat Average Glucose Hemoglobin A1c % Lactic Acid Lactic Acid F/U @ 2Hr Lactic Acid F/U @ 4Hr Calcium 7.5 L Phosphorus 3.0 Magnesium 2.0 Total Bilirubin 0.8 Direct Bilirubin AST 18 ALT 16 Alkaline Phosphatase 53 C-Reactive Protein B-Natriuretic Peptide Total Protein 4.3 L Albumin 2.3 L Triglycerides Lipase Procalcitonin Urine Color Urine Appearance Urine pH Ur Specific [place] Urine Protein Urine Glucose (UA) Urine Ketones Urine Blood Urine Nitrite Ur Leukocyte Esterase Ur Random Sodium Random Vancomycin Heparin Dep Plt Ab OD Hep-Induced Plt Ab Britt C. difficile Tox B Gene COVID-19 ([facility]) COVID-19 Clin Com Blood Type Antibody Screen Crossmatch 06/01/22 06/01/22 06/01/22 05:29 11:53 23:49 WBC RBC Hgb Hct MCV MCH MCHC RDW Plt Count MPV Immature Gran % (Auto) Neut % (Auto) Lymph % (Auto) [place] % (Auto) Eos % (Auto) Baso % (Auto) Lymph # (Auto) [place] # (Auto) Eos # (Auto) Baso # (Auto) Abs Immat Gran (auto) Absolute Neuts (auto) Absolute Nucleated RBC Nucleated RBC % (auto) Neutrophils % (Manual) Band Neutrophils % Lymphocytes % (Manual) Atypical Lymphs % (Man) Monocytes % (Manual) Eosinophils % (Manual) Basophils % (Manual) Metamyelocytes % Myelocytes % Promyelocytes % Abs Neuts (Manual) Lymphocytes # (Manual) Atyp Lymphs # (Manual) Monocytes # (Manual) Eosinophils # (Manual) Basophils # (Manual) Metamyelocytes # Myelocytes # Promyelocytes # Nucleated RBCs Smudge Cells Toxic Granulation Toxic Vacuolation Dohle Bodies Platelet Estimate Large Platelets Plt Morphology Comment RBC Morphology Polychromasia Hypochromasia Microcytosis Macrocytosis Spherocytes Ovalocytes Stomatocytes Susan Cells Smear Tech's Comments ESR PT INR aPTT Heparin Protocol Hep-Ind Thrombocytop Com O2 Saturation ABG pH at Pt Temp ABG pCO2 at Pt Temp ABG pO2 at Pt Temp ABG HCO3 ABG Base Excess (Actual) VBG pH VBG pCO2 VBG pO2 VBG HCO3 VBG O2 Saturation VBG Base Excess Sodium Potassium Chloride Carbon Dioxide Anion Gap BUN Creatinine Estim Creat Clear Calc Estimated GFR POC Glucose 258 H 235 H 214 H Random Glucose Estimat Average Glucose Hemoglobin A1c % Lactic Acid Lactic Acid F/U @ 2Hr Lactic Acid F/U @ 4Hr Calcium Phosphorus Magnesium Total Bilirubin Direct Bilirubin AST ALT Alkaline Phosphatase C-Reactive Protein B-Natriuretic Peptide Total Protein Albumin Triglycerides Lipase Procalcitonin Urine Color Urine Appearance Urine pH Ur Specific [place] Urine Protein Urine Glucose (UA) Urine Ketones Urine Blood Urine Nitrite Ur Leukocyte Esterase Ur Random Sodium Random Vancomycin Heparin Dep Plt Ab OD Hep-Induced Plt Ab Britt C. difficile Tox B Gene COVID-19 ([facility]) COVID-19 Clin Com Blood Type Antibody Screen Crossmatch 06/02/22 06/02/22 06/02/22 05:37 05:37 05:51 WBC 11.0 H RBC 2.68 L Hgb 7.9 L Hct 23.9 L MCV 89.2 MCH 29.5 MCHC 33.1 RDW 16.7 H Plt Count 236 MPV 11.9 Immature Gran % (Auto) Cancelled Neut % (Auto) Cancelled Lymph % (Auto) Cancelled [place] % (Auto) Cancelled Eos % (Auto) Cancelled Baso % (Auto) Cancelled Lymph # (Auto) Cancelled [place] # (Auto) Cancelled Eos # (Auto) Cancelled Baso # (Auto) Cancelled Abs Immat Gran (auto) Cancelled Absolute Neuts (auto) Cancelled Absolute Nucleated RBC 0.000 Nucleated RBC % (auto) 0.0 Neutrophils % (Manual) 80 H Band Neutrophils % 5 Lymphocytes % (Manual) 11 L Atypical Lymphs % (Man) 1 Monocytes % (Manual) 2 Eosinophils % (Manual) 1 Basophils % (Manual) Metamyelocytes % Myelocytes % Promyelocytes % Abs Neuts (Manual) 9.4 H Lymphocytes # (Manual) 1.2 Atyp Lymphs # (Manual) 0.1 Monocytes # (Manual) 0.2 Eosinophils # (Manual) 0.1 Basophils # (Manual) Metamyelocytes # Myelocytes # Promyelocytes # Nucleated RBCs Smudge Cells Toxic Granulation PRESENT Toxic Vacuolation Dohle Bodies PRESENT Platelet Estimate NORMAL Large Platelets Plt Morphology Comment NORMAL RBC Morphology NOTED Polychromasia 2+ (3-5) Hypochromasia 1+ (5-14) Microcytosis Macrocytosis Spherocytes Ovalocytes Stomatocytes Amonate Cells Smear Tech's Comments ESR PT INR aPTT Heparin Protocol Hep-Ind Thrombocytop Com O2 Saturation ABG pH at Pt Temp ABG pCO2 at Pt Temp ABG pO2 at Pt Temp ABG HCO3 ABG Base Excess (Actual) VBG pH 7.44 H VBG pCO2 29 VBG pO2 58 VBG HCO3 20 L VBG O2 Saturation 87.0 VBG Base Excess -2.8 Sodium 141 Potassium 4.0 Chloride 110 H Carbon Dioxide 21 L Anion Gap 14 BUN 41 H Creatinine 0.94 Estim Creat Clear Calc 77.9 Estimated GFR > 60 POC Glucose Random Glucose 214 H Estimat Average Glucose Hemoglobin A1c % Lactic Acid Lactic Acid F/U @ 2Hr Lactic Acid F/U @ 4Hr Calcium 7.8 L Phosphorus 4.0 Magnesium 2.0 Total Bilirubin 0.9 Direct Bilirubin AST 17 ALT 12 Alkaline Phosphatase 53 C-Reactive Protein B-Natriuretic Peptide Total Protein 4.8 L Albumin 2.8 L D Triglycerides Lipase Procalcitonin Urine Color Urine Appearance Urine pH Ur Specific [place] Urine Protein Urine Glucose (UA) Urine Ketones Urine Blood Urine Nitrite Ur Leukocyte Esterase Ur Random Sodium Random Vancomycin Heparin Dep Plt Ab OD Hep-Induced Plt Ab Britt C. difficile Tox B Gene COVID-19 ([facility]) COVID-19 Clin Com Blood Type Antibody Screen Crossmatch 06/02/22 06/02/22 06/02/22 05:54 11:59 18:10 WBC RBC Hgb Hct MCV MCH MCHC RDW Plt Count MPV Immature Gran % (Auto) Neut % (Auto) Lymph % (Auto) [place] % (Auto) Eos % (Auto) Baso % (Auto) Lymph # (Auto) [place] # (Auto) Eos # (Auto) Baso # (Auto) Abs Immat Gran (auto) Absolute Neuts (auto) Absolute Nucleated RBC Nucleated RBC % (auto) Neutrophils % (Manual) Band Neutrophils % Lymphocytes % (Manual) Atypical Lymphs % (Man) Monocytes % (Manual) Eosinophils % (Manual) Basophils % (Manual) Metamyelocytes % Myelocytes % Promyelocytes % Abs Neuts (Manual) Lymphocytes # (Manual) Atyp Lymphs # (Manual) Monocytes # (Manual) Eosinophils # (Manual) Basophils # (Manual) Metamyelocytes # Myelocytes # Promyelocytes # Nucleated RBCs Smudge Cells Toxic Granulation Toxic Vacuolation Dohle Bodies Platelet Estimate Large Platelets Plt Morphology Comment RBC Morphology Polychromasia Hypochromasia Microcytosis Macrocytosis Spherocytes Ovalocytes Stomatocytes Susan Cells Smear Tech's Comments ESR PT INR aPTT Heparin Protocol Hep-Ind Thrombocytop Com O2 Saturation ABG pH at Pt Temp ABG pCO2 at Pt Temp ABG pO2 at Pt Temp ABG HCO3 ABG Base Excess (Actual) VBG pH VBG pCO2 VBG pO2 VBG HCO3 VBG O2 Saturation VBG Base Excess Sodium Potassium Chloride Carbon Dioxide Anion Gap BUN Creatinine Estim Creat Clear Calc Estimated GFR POC Glucose 204 H 186 H 170 H Random Glucose Estimat Average Glucose Hemoglobin A1c % Lactic Acid Lactic Acid F/U @ 2Hr Lactic Acid F/U @ 4Hr Calcium Phosphorus Magnesium Total Bilirubin Direct Bilirubin AST ALT Alkaline Phosphatase C-Reactive Protein B-Natriuretic Peptide Total Protein Albumin Triglycerides Lipase Procalcitonin Urine Color Urine Appearance Urine pH Ur Specific [place] Urine Protein Urine Glucose (UA) Urine Ketones Urine Blood Urine Nitrite Ur Leukocyte Esterase Ur Random Sodium Random Vancomycin Heparin Dep Plt Ab OD Hep-Induced Plt Ab Britt C. difficile Tox B Gene COVID-19 ([facility]ER) COVID-19 Clin Com Blood Type Antibody Screen Crossmatch 06/02/22 06/03/22 06/03/22 23:51 05:44 06:00 WBC 12.0 H RBC 2.56 L Hgb 7.5 L Hct 23.3 L MCV 91.0 MCH 29.3 MCHC 32.2 RDW 16.2 H Plt Count 240 MPV 11.5 Immature Gran % (Auto) Cancelled Neut % (Auto) Cancelled Lymph % (Auto) Cancelled [place] % (Auto) Cancelled Eos % (Auto) Cancelled Baso % (Auto) Cancelled Lymph # (Auto) Cancelled [place] # (Auto) Cancelled Eos # (Auto) Cancelled Baso # (Auto) Cancelled Abs Immat Gran (auto) Cancelled Absolute Neuts (auto) Cancelled Absolute Nucleated RBC 0.000 Nucleated RBC % (auto) 0.0 Neutrophils % (Manual) 77 H Band Neutrophils % 7 H Lymphocytes % (Manual) 10 L Atypical Lymphs % (Man) Monocytes % (Manual) 1 L Eosinophils % (Manual) 2 Basophils % (Manual) 2 Metamyelocytes % 1 Myelocytes % Promyelocytes % Abs Neuts (Manual) 10.1 H Lymphocytes # (Manual) 1.2 Atyp Lymphs # (Manual) Monocytes # (Manual) 0.1 Eosinophils # (Manual) 0.2 Basophils # (Manual) 0.2 Metamyelocytes # 0.1 Myelocytes # Promyelocytes # Nucleated RBCs Smudge Cells Toxic Granulation PRESENT Toxic Vacuolation Dohle Bodies PRESENT Platelet Estimate NORMAL Large Platelets PRESENT Plt Morphology Comment NOTED RBC Morphology NOTED Polychromasia 1+ (0-2) Hypochromasia 1+ (5-14) Microcytosis Macrocytosis Spherocytes 1+ (0-2) Ovalocytes Stomatocytes Susan Cells Smear Tech's Comments ESR PT INR aPTT Heparin Protocol Hep-Ind Thrombocytop Com O2 Saturation ABG pH at Pt Temp ABG pCO2 at Pt Temp ABG pO2 at Pt Temp ABG HCO3 ABG Base Excess (Actual) VBG pH VBG pCO2 VBG pO2 VBG HCO3 VBG O2 Saturation VBG Base Excess Sodium Potassium Chloride Carbon Dioxide Anion Gap BUN Creatinine Estim Creat Clear Calc Estimated GFR POC Glucose 170 H 158 H Random Glucose Estimat Average Glucose Hemoglobin A1c % Lactic Acid Lactic Acid F/U @ 2Hr Lactic Acid F/U @ 4Hr Calcium Phosphorus Magnesium Total Bilirubin Direct Bilirubin AST ALT Alkaline Phosphatase C-Reactive Protein B-Natriuretic Peptide Total Protein Albumin Triglycerides Lipase Procalcitonin Urine Color Urine Appearance Urine pH Ur Specific [place] Urine Protein Urine Glucose (UA) Urine Ketones Urine Blood Urine Nitrite Ur Leukocyte Esterase Ur Random Sodium Random Vancomycin Heparin Dep Plt Ab OD Hep-Induced Plt Ab Britt C. difficile Tox B Gene COVID-19 ([facility]ER) COVID-19 Clin Com Blood Type Antibody Screen Crossmatch 06/03/22 06/03/22 06/03/22 06:00 06:03 06:22 WBC RBC Hgb Hct MCV MCH MCHC RDW Plt Count MPV Immature Gran % (Auto) Neut % (Auto) Lymph % (Auto) [place] % (Auto) Eos % (Auto) Baso % (Auto) Lymph # (Auto) [place] # (Auto) Eos # (Auto) Baso # (Auto) Abs Immat Gran (auto) Absolute Neuts (auto) Absolute Nucleated RBC Nucleated RBC % (auto) Neutrophils % (Manual) Band Neutrophils % Lymphocytes % (Manual) Atypical Lymphs % (Man) Monocytes % (Manual) Eosinophils % (Manual) Basophils % (Manual) Metamyelocytes % Myelocytes % Promyelocytes % Abs Neuts (Manual) Lymphocytes # (Manual) Atyp Lymphs # (Manual) Monocytes # (Manual) Eosinophils # (Manual) Basophils # (Manual) Metamyelocytes # Myelocytes # Promyelocytes # Nucleated RBCs Smudge Cells Toxic Granulation Toxic Vacuolation Dohle Bodies Platelet Estimate Large Platelets Plt Morphology Comment RBC Morphology Polychromasia Hypochromasia Microcytosis Macrocytosis Spherocytes Ovalocytes Stomatocytes Susan Cells Smear Tech's Comments ESR PT INR aPTT Heparin Protocol Hep-Ind Thrombocytop Com O2 Saturation ABG pH at Pt Temp ABG pCO2 at Pt Temp ABG pO2 at Pt Temp ABG HCO3 ABG Base Excess (Actual) VBG pH 7.43 VBG pCO2 27 VBG pO2 53 VBG HCO3 18 L VBG O2 Saturation 84.0 VBG Base Excess -4.3 Sodium 140 Potassium 4.3 Chloride 111 H Carbon Dioxide 19 L Anion Gap 14 BUN 37 H Creatinine 0.83 Estim Creat Clear Calc 84.7 Estimated GFR > 60 POC Glucose Random Glucose 184 H Estimat Average Glucose Hemoglobin A1c % Lactic Acid 1.3 Lactic Acid F/U @ 2Hr Lactic Acid F/U @ 4Hr Calcium 7.7 L Phosphorus 4.5 Magnesium 2.0 Total Bilirubin 1.3 H Direct Bilirubin AST 19 ALT 12 Alkaline Phosphatase 52 C-Reactive Protein B-Natriuretic Peptide Total Protein 4.6 L Albumin 2.8 L Triglycerides Lipase Procalcitonin Urine Color Urine Appearance Urine pH Ur Specific [place] Urine Protein Urine Glucose (UA) Urine Ketones Urine Blood Urine Nitrite Ur Leukocyte Esterase Ur Random Sodium Random Vancomycin Heparin Dep Plt Ab OD Hep-Induced Plt Ab Britt C. difficile Tox B Gene COVID-19 ([facility]LER) COVID-19 Clin Com Blood Type Antibody Screen Crossmatch 06/03/22 06/03/22 06/03/22 08:26 08:52 12:22 WBC RBC Hgb Hct MCV MCH MCHC RDW Plt Count MPV Immature Gran % (Auto) Neut % (Auto) Lymph % (Auto) [place] % (Auto) Eos % (Auto) Baso % (Auto) Lymph # (Auto) [place] # (Auto) Eos # (Auto) Baso # (Auto) Abs Immat Gran (auto) Absolute Neuts (auto) Absolute Nucleated RBC Nucleated RBC % (auto) Neutrophils % (Manual) Band Neutrophils % Lymphocytes % (Manual) Atypical Lymphs % (Man) Monocytes % (Manual) Eosinophils % (Manual) Basophils % (Manual) Metamyelocytes % Myelocytes % Promyelocytes % Abs Neuts (Manual) Lymphocytes # (Manual) Atyp Lymphs # (Manual) Monocytes # (Manual) Eosinophils # (Manual) Basophils # (Manual) Metamyelocytes # Myelocytes # Promyelocytes # Nucleated RBCs Smudge Cells Toxic Granulation Toxic Vacuolation Dohle Bodies Platelet Estimate Large Platelets Plt Morphology Comment RBC Morphology Polychromasia Hypochromasia Microcytosis Macrocytosis Spherocytes Ovalocytes Stomatocytes Amonate Cells Smear Tech's Comments ESR PT INR aPTT Heparin Protocol Hep-Ind Thrombocytop Com O2 Saturation ABG pH at Pt Temp ABG pCO2 at Pt Temp ABG pO2 at Pt Temp ABG HCO3 ABG Base Excess (Actual) VBG pH VBG pCO2 VBG pO2 VBG HCO3 VBG O2 Saturation VBG Base Excess Sodium Potassium Chloride Carbon Dioxide Anion Gap BUN Creatinine Estim Creat Clear Calc Estimated GFR POC Glucose 168 H Random Glucose Estimat Average Glucose Hemoglobin A1c % Lactic Acid Lactic Acid F/U @ 2Hr Lactic Acid F/U @ 4Hr Calcium Phosphorus Magnesium Total Bilirubin Direct Bilirubin AST ALT Alkaline Phosphatase C-Reactive Protein B-Natriuretic Peptide Total Protein Albumin Triglycerides Lipase Procalcitonin Urine Color Urine Appearance Urine pH Ur Specific [place] Urine Protein Urine Glucose (UA) Urine Ketones Urine Blood Urine Nitrite Ur Leukocyte Esterase Ur Random Sodium Random Vancomycin Heparin Dep Plt Ab OD Hep-Induced Plt Ab Britt C. difficile Tox B Gene NEGATIVE COVID-19 ([facility]LER) COVID-19 Clin Com Blood Type B Positive Antibody Screen NEGATIVE Crossmatch See Detail 06/03/22 06/03/22 06/04/22 18:31 23:56 05:00 WBC 19.3 H RBC 3.23 L D Hgb 9.2 L D Hct 29.2 L D MCV 90.4 MCH 28.5 MCHC 31.5 RDW 15.9 Plt Count 322 D MPV 11.7 Immature Gran % (Auto) Cancelled Neut % (Auto) Cancelled Lymph % (Auto) Cancelled [place] % (Auto) Cancelled Eos % (Auto) Cancelled Baso % (Auto) Cancelled Lymph # (Auto) Cancelled [place] # (Auto) Cancelled Eos # (Auto) Cancelled Baso # (Auto) Cancelled Abs Immat Gran (auto) Cancelled Absolute Neuts (auto) Cancelled Absolute Nucleated RBC 0.000 Nucleated RBC % (auto) 0.0 Neutrophils % (Manual) 71 Band Neutrophils % 10 H Lymphocytes % (Manual) 10 L Atypical Lymphs % (Man) Monocytes % (Manual) 4 Eosinophils % (Manual) 4 Basophils % (Manual) 1 Metamyelocytes % Myelocytes % Promyelocytes % Abs Neuts (Manual) 15.6 H Lymphocytes # (Manual) 1.9 Atyp Lymphs # (Manual) Monocytes # (Manual) 0.8 Eosinophils # (Manual) 0.8 H Basophils # (Manual) 0.2 Metamyelocytes # Myelocytes # Promyelocytes # Nucleated RBCs Smudge Cells PRESENT Toxic Granulation PRESENT Toxic Vacuolation Dohle Bodies PRESENT Platelet Estimate SLIGHTLY INCREASED Large Platelets PRESENT Plt Morphology Comment NORMAL RBC Morphology NOTED Polychromasia 1+ (0-2) Hypochromasia Microcytosis 1+ (5-14) Macrocytosis 1+ (5-14) Spherocytes 1+ (0-2) Ovalocytes Stomatocytes Susan Cells 1+ (0-2) Smear Tech's Comments ESR PT INR aPTT Heparin Protocol Hep-Ind Thrombocytop Com O2 Saturation ABG pH at Pt Temp ABG pCO2 at Pt Temp ABG pO2 at Pt Temp ABG HCO3 ABG Base Excess (Actual) VBG pH VBG pCO2 VBG pO2 VBG HCO3 VBG O2 Saturation VBG Base Excess Sodium Potassium Chloride Carbon Dioxide Anion Gap BUN Creatinine Estim Creat Clear Calc Estimated GFR POC Glucose 182 H 189 H Random Glucose Estimat Average Glucose Hemoglobin A1c % Lactic Acid Lactic Acid F/U @ 2Hr Lactic Acid F/U @ 4Hr Calcium Phosphorus Magnesium Total Bilirubin Direct Bilirubin AST ALT Alkaline Phosphatase C-Reactive Protein B-Natriuretic Peptide Total Protein Albumin Triglycerides Lipase Procalcitonin Urine Color Urine Appearance Urine pH Ur Specific [place] Urine Protein Urine Glucose (UA) Urine Ketones Urine Blood Urine Nitrite Ur Leukocyte Esterase Ur Random Sodium Random Vancomycin Heparin Dep Plt Ab OD Hep-Induced Plt Ab Britt C. difficile Tox B Gene COVID-19 ([facility]ER) COVID-19 Clin Com Blood Type Antibody Screen Crossmatch 06/04/22 06/04/22 06/04/22 05:00 05:01 05:51 WBC RBC Hgb Hct MCV MCH MCHC RDW Plt Count MPV Immature Gran % (Auto) Neut % (Auto) Lymph % (Auto) [place] % (Auto) Eos % (Auto) Baso % (Auto) Lymph # (Auto) [place] # (Auto) Eos # (Auto) Baso # (Auto) Abs Immat Gran (auto) Absolute Neuts (auto) Absolute Nucleated RBC Nucleated RBC % (auto) Neutrophils % (Manual) Band Neutrophils % Lymphocytes % (Manual) Atypical Lymphs % (Man) Monocytes % (Manual) Eosinophils % (Manual) Basophils % (Manual) Metamyelocytes % Myelocytes % Promyelocytes % Abs Neuts (Manual) Lymphocytes # (Manual) Atyp Lymphs # (Manual) Monocytes # (Manual) Eosinophils # (Manual) Basophils # (Manual) Metamyelocytes # Myelocytes # Promyelocytes # Nucleated RBCs Smudge Cells Toxic Granulation Toxic Vacuolation Dohle Bodies Platelet Estimate Large Platelets Plt Morphology Comment RBC Morphology Polychromasia Hypochromasia Microcytosis Macrocytosis Spherocytes Ovalocytes Stomatocytes Susan Cells Smear Tech's Comments ESR PT INR aPTT Heparin Protocol Hep-Ind Thrombocytop Com O2 Saturation ABG pH at Pt Temp ABG pCO2 at Pt Temp ABG pO2 at Pt Temp ABG HCO3 ABG Base Excess (Actual) VBG pH 7.38 VBG pCO2 30 VBG pO2 40 VBG HCO3 18 L VBG O2 Saturation 66.0 VBG Base Excess -6.0 Sodium 139 Potassium 4.9 Chloride 110 H Carbon Dioxide 20 L Anion Gap 14 BUN 37 H Creatinine 0.75 Estim Creat Clear Calc 94.0 Estimated GFR > 60 POC Glucose 199 H Random Glucose 221 H Estimat Average Glucose Hemoglobin A1c % Lactic Acid Lactic Acid F/U @ 2Hr Lactic Acid F/U @ 4Hr Calcium 7.5 L Phosphorus 4.7 H Magnesium 1.9 Total Bilirubin 1.5 H Direct Bilirubin AST 20 ALT 13 Alkaline Phosphatase 67 D C-Reactive Protein B-Natriuretic Peptide Total Protein 4.6 L Albumin 2.5 L Triglycerides Lipase Procalcitonin Urine Color Urine Appearance Urine pH Ur Specific [place] Urine Protein Urine Glucose (UA) Urine Ketones Urine Blood Urine Nitrite Ur Leukocyte Esterase Ur Random Sodium Random Vancomycin Heparin Dep Plt Ab OD Hep-Induced Plt Ab Britt C. difficile Tox B Gene COVID-19 ([facility]) COVID-19 Clin Com Blood Type Antibody Screen Crossmatch 06/04/22 06/04/22 06/05/22 11:51 18:00 00:12 WBC RBC Hgb Hct MCV MCH MCHC RDW Plt Count MPV Immature Gran % (Auto) Neut % (Auto) Lymph % (Auto) [place] % (Auto) Eos % (Auto) Baso % (Auto) Lymph # (Auto) [place] # (Auto) Eos # (Auto) Baso # (Auto) Abs Immat Gran (auto) Absolute Neuts (auto) Absolute Nucleated RBC Nucleated RBC % (auto) Neutrophils % (Manual) Band Neutrophils % Lymphocytes % (Manual) Atypical Lymphs % (Man) Monocytes % (Manual) Eosinophils % (Manual) Basophils % (Manual) Metamyelocytes % Myelocytes % Promyelocytes % Abs Neuts (Manual) Lymphocytes # (Manual) Atyp Lymphs # (Manual) Monocytes # (Manual) Eosinophils # (Manual) Basophils # (Manual) Metamyelocytes # Myelocytes # Promyelocytes # Nucleated RBCs Smudge Cells Toxic Granulation Toxic Vacuolation Dohle Bodies Platelet Estimate Large Platelets Plt Morphology Comment RBC Morphology Polychromasia Hypochromasia Microcytosis Macrocytosis Spherocytes Ovalocytes Stomatocytes Susan Cells Smear Tech's Comments ESR PT INR aPTT Heparin Protocol Hep-Ind Thrombocytop Com O2 Saturation ABG pH at Pt Temp ABG pCO2 at Pt Temp ABG pO2 at Pt Temp ABG HCO3 ABG Base Excess (Actual) VBG pH VBG pCO2 VBG pO2 VBG HCO3 VBG O2 Saturation VBG Base Excess Sodium Potassium Chloride Carbon Dioxide Anion Gap BUN Creatinine Estim Creat Clear Calc Estimated GFR POC Glucose 225 H 256 H 212 H Random Glucose Estimat Average Glucose Hemoglobin A1c % Lactic Acid Lactic Acid F/U @ 2Hr Lactic Acid F/U @ 4Hr Calcium Phosphorus Magnesium Total Bilirubin Direct Bilirubin AST ALT Alkaline Phosphatase C-Reactive Protein B-Natriuretic Peptide Total Protein Albumin Triglycerides Lipase Procalcitonin Urine Color Urine Appearance Urine pH Ur Specific [place] Urine Protein Urine Glucose (UA) Urine Ketones Urine Blood Urine Nitrite Ur Leukocyte Esterase Ur Random Sodium Random Vancomycin Heparin Dep Plt Ab OD Hep-Induced Plt Ab Britt C. difficile Tox B Gene COVID-19 ([facility]) COVID-19 Clin Com Blood Type Antibody Screen Crossmatch 06/05/22 06/05/22 06/05/22 05:00 05:00 05:05 WBC 16.5 H RBC 3.02 L Hgb 8.7 L Hct 27.7 L MCV 91.7 MCH 28.8 MCHC 31.4 RDW 15.9 Plt Count 323 MPV 11.8 Immature Gran % (Auto) Cancelled Neut % (Auto) Cancelled Lymph % (Auto) Cancelled [place] % (Auto) Cancelled Eos % (Auto) Cancelled Baso % (Auto) Cancelled Lymph # (Auto) Cancelled [place] # (Auto) Cancelled Eos # (Auto) Cancelled Baso # (Auto) Cancelled Abs Immat Gran (auto) Cancelled Absolute Neuts (auto) Cancelled Absolute Nucleated RBC 0.000 Nucleated RBC % (auto) 0.0 Neutrophils % (Manual) 69 Band Neutrophils % 11 H Lymphocytes % (Manual) 14 L Atypical Lymphs % (Man) Monocytes % (Manual) 2 Eosinophils % (Manual) 2 Basophils % (Manual) 1 Metamyelocytes % Myelocytes % 1 Promyelocytes % Abs Neuts (Manual) 13.2 H Lymphocytes # (Manual) 2.3 Atyp Lymphs # (Manual) Monocytes # (Manual) 0.3 Eosinophils # (Manual) 0.3 Basophils # (Manual) 0.2 Metamyelocytes # Myelocytes # 0.2 Promyelocytes # Nucleated RBCs Smudge Cells Toxic Granulation PRESENT Toxic Vacuolation Dohle Bodies PRESENT Platelet Estimate NORMAL Large Platelets Plt Morphology Comment NORMAL RBC Morphology NOTED Polychromasia 1+ (0-2) Hypochromasia 1+ (5-14) Microcytosis Macrocytosis Spherocytes Ovalocytes Stomatocytes Amonate Cells Smear Tech's Comments ESR PT INR aPTT Heparin Protocol Hep-Ind Thrombocytop Com O2 Saturation ABG pH at Pt Temp ABG pCO2 at Pt Temp ABG pO2 at Pt Temp ABG HCO3 ABG Base Excess (Actual) VBG pH 7.38 VBG pCO2 31 VBG pO2 39 VBG HCO3 18 L VBG O2 Saturation 62.0 VBG Base Excess -5.4 Sodium 137 Potassium 5.2 H Chloride 108 Carbon Dioxide 20 L Anion Gap 14 BUN 31 H Creatinine 0.71 Estim Creat Clear Calc 99.4 Estimated GFR > 60 POC Glucose Random Glucose 207 H Estimat Average Glucose Hemoglobin A1c % Lactic Acid Lactic Acid F/U @ 2Hr Lactic Acid F/U @ 4Hr Calcium 7.5 L Phosphorus 3.6 Magnesium 2.0 Total Bilirubin 0.7 Direct Bilirubin AST 16 ALT 11 Alkaline Phosphatase 66 C-Reactive Protein B-Natriuretic Peptide Total Protein 4.5 L Albumin 2.2 L Triglycerides Lipase Procalcitonin Urine Color Urine Appearance Urine pH Ur Specific [place] Urine Protein Urine Glucose (UA) Urine Ketones Urine Blood Urine Nitrite Ur Leukocyte Esterase Ur Random Sodium Random Vancomycin Heparin Dep Plt Ab OD Hep-Induced Plt Ab Britt C. difficile Tox B Gene COVID-19 ([facility]) COVID-19 Clin Com Blood Type Antibody Screen Crossmatch 06/05/22 06/05/22 06/05/22 05:55 11:38 17:39 WBC RBC Hgb Hct MCV MCH MCHC RDW Plt Count MPV Immature Gran % (Auto) Neut % (Auto) Lymph % (Auto) [place] % (Auto) Eos % (Auto) Baso % (Auto) Lymph # (Auto) [place] # (Auto) Eos # (Auto) Baso # (Auto) Abs Immat Gran (auto) Absolute Neuts (auto) Absolute Nucleated RBC Nucleated RBC % (auto) Neutrophils % (Manual) Band Neutrophils % Lymphocytes % (Manual) Atypical Lymphs % (Man) Monocytes % (Manual) Eosinophils % (Manual) Basophils % (Manual) Metamyelocytes % Myelocytes % Promyelocytes % Abs Neuts (Manual) Lymphocytes # (Manual) Atyp Lymphs # (Manual) Monocytes # (Manual) Eosinophils # (Manual) Basophils # (Manual) Metamyelocytes # Myelocytes # Promyelocytes # Nucleated RBCs Smudge Cells Toxic Granulation Toxic Vacuolation Dohle Bodies Platelet Estimate Large Platelets Plt Morphology Comment RBC Morphology Polychromasia Hypochromasia Microcytosis Macrocytosis Spherocytes Ovalocytes Stomatocytes Amonate Cells Smear Tech's Comments ESR PT INR aPTT Heparin Protocol Hep-Ind Thrombocytop Com O2 Saturation ABG pH at Pt Temp ABG pCO2 at Pt Temp ABG pO2 at Pt Temp ABG HCO3 ABG Base Excess (Actual) VBG pH VBG pCO2 VBG pO2 VBG HCO3 VBG O2 Saturation VBG Base Excess Sodium Potassium Chloride Carbon Dioxide Anion Gap BUN Creatinine Estim Creat Clear Calc Estimated GFR POC Glucose 175 H 199 H 248 H Random Glucose Estimat Average Glucose Hemoglobin A1c % Lactic Acid Lactic Acid F/U @ 2Hr Lactic Acid F/U @ 4Hr Calcium Phosphorus Magnesium Total Bilirubin Direct Bilirubin AST ALT Alkaline Phosphatase C-Reactive Protein B-Natriuretic Peptide Total Protein Albumin Triglycerides Lipase Procalcitonin Urine Color Urine Appearance Urine pH Ur Specific [place] Urine Protein Urine Glucose (UA) Urine Ketones Urine Blood Urine Nitrite Ur Leukocyte Esterase Ur Random Sodium Random Vancomycin Heparin Dep Plt Ab OD Hep-Induced Plt Ab Britt C. difficile Tox B Gene COVID-19 ([facility]) COVID-19 Clin Com Blood Type Antibody Screen Crossmatch 06/05/22 06/06/22 06/06/22 23:37 05:08 05:08 WBC 12.4 H RBC 2.50 L Hgb 7.1 L Hct 22.6 L MCV 90.4 MCH 28.4 MCHC 31.4 RDW 15.8 Plt Count 302 MPV 11.0 Immature Gran % (Auto) 3.2 H Neut % (Auto) 71.4 Lymph % (Auto) 17.2 L [place] % (Auto) 5.3 Eos % (Auto) 2.3 Baso % (Auto) 0.6 Lymph # (Auto) 2.1 [place] # (Auto) 0.7 Eos # (Auto) 0.3 Baso # (Auto) 0.1 Abs Immat Gran (auto) 0.40 H Absolute Neuts (auto) 8.9 H Absolute Nucleated RBC 0.000 Nucleated RBC % (auto) 0.0 Neutrophils % (Manual) Band Neutrophils % Lymphocytes % (Manual) Atypical Lymphs % (Man) Monocytes % (Manual) Eosinophils % (Manual) Basophils % (Manual) Metamyelocytes % Myelocytes % Promyelocytes % Abs Neuts (Manual) Lymphocytes # (Manual) Atyp Lymphs # (Manual) Monocytes # (Manual) Eosinophils # (Manual) Basophils # (Manual) Metamyelocytes # Myelocytes # Promyelocytes # Nucleated RBCs Smudge Cells Toxic Granulation Toxic Vacuolation Dohle Bodies Platelet Estimate Large Platelets Plt Morphology Comment RBC Morphology Polychromasia Hypochromasia Microcytosis Macrocytosis Spherocytes Ovalocytes Stomatocytes Amonate Cells Smear Tech's Comments VERIFIED ESR PT INR aPTT Heparin Protocol Hep-Ind Thrombocytop Com O2 Saturation ABG pH at Pt Temp ABG pCO2 at Pt Temp ABG pO2 at Pt Temp ABG HCO3 ABG Base Excess (Actual) VBG pH VBG pCO2 VBG pO2 VBG HCO3 VBG O2 Saturation VBG Base Excess Sodium 138 Potassium 4.9 Chloride 108 Carbon Dioxide 22 Anion Gap 13 BUN 26 H Creatinine 0.75 Estim Creat Clear Calc 94.1 Estimated GFR > 60 POC Glucose 138 H Random Glucose 105 Estimat Average Glucose Hemoglobin A1c % Lactic Acid Lactic Acid F/U @ 2Hr Lactic Acid F/U @ 4Hr Calcium 8.1 L D Phosphorus 3.3 Magnesium 1.9 Total Bilirubin Direct Bilirubin AST ALT Alkaline Phosphatase C-Reactive Protein B-Natriuretic Peptide Total Protein Albumin 3.2 L D Triglycerides Lipase Procalcitonin Urine Color Urine Appearance Urine pH Ur Specific [place] Urine Protein Urine Glucose (UA) Urine Ketones Urine Blood Urine Nitrite Ur Leukocyte Esterase Ur Random Sodium Random Vancomycin Heparin Dep Plt Ab OD Hep-Induced Plt Ab Britt C. difficile Tox B Gene COVID-19 ([facility]) COVID-19 Clin Com Blood Type Antibody Screen Crossmatch 06/06/22 06/06/22 06/06/22 05:08 05:18 11:43 WBC RBC Hgb Hct MCV MCH MCHC RDW Plt Count MPV Immature Gran % (Auto) Neut % (Auto) Lymph % (Auto) [place] % (Auto) Eos % (Auto) Baso % (Auto) Lymph # (Auto) [place] # (Auto) Eos # (Auto) Baso # (Auto) Abs Immat Gran (auto) Absolute Neuts (auto) Absolute Nucleated RBC Nucleated RBC % (auto) Neutrophils % (Manual) Band Neutrophils % Lymphocytes % (Manual) Atypical Lymphs % (Man) Monocytes % (Manual) Eosinophils % (Manual) Basophils % (Manual) Metamyelocytes % Myelocytes % Promyelocytes % Abs Neuts (Manual) Lymphocytes # (Manual) Atyp Lymphs # (Manual) Monocytes # (Manual) Eosinophils # (Manual) Basophils # (Manual) Metamyelocytes # Myelocytes # Promyelocytes # Nucleated RBCs Smudge Cells Toxic Granulation Toxic Vacuolation Dohle Bodies Platelet Estimate Large Platelets Plt Morphology Comment RBC Morphology Polychromasia Hypochromasia Microcytosis Macrocytosis Spherocytes Ovalocytes Stomatocytes Susan Cells Smear Tech's Comments ESR PT INR aPTT Heparin Protocol Hep-Ind Thrombocytop Com O2 Saturation ABG pH at Pt Temp ABG pCO2 at Pt Temp ABG pO2 at Pt Temp ABG HCO3 ABG Base Excess (Actual) VBG pH 7.41 VBG pCO2 33 VBG pO2 52 VBG HCO3 21 L VBG O2 Saturation 79.0 VBG Base Excess -2.5 Sodium Potassium Chloride Carbon Dioxide Anion Gap BUN Creatinine Estim Creat Clear Calc Estimated GFR POC Glucose 90 Random Glucose Estimat Average Glucose Hemoglobin A1c % Lactic Acid 1.0 Lactic Acid F/U @ 2Hr Lactic Acid F/U @ 4Hr Calcium Phosphorus Magnesium Total Bilirubin Direct Bilirubin AST ALT Alkaline Phosphatase C-Reactive Protein B-Natriuretic Peptide Total Protein Albumin Triglycerides Lipase Procalcitonin Urine Color Urine Appearance Urine pH Ur Specific [place] Urine Protein Urine Glucose (UA) Urine Ketones Urine Blood Urine Nitrite Ur Leukocyte Esterase Ur Random Sodium Random Vancomycin Heparin Dep Plt Ab OD Hep-Induced Plt Ab Britt C. difficile Tox B Gene COVID-19 ([facility]) COVID-19 Clin Com Blood Type Antibody Screen Crossmatch 06/06/22 06/06/22 06/07/22 17:34 23:58 05:05 WBC 13.1 H RBC 2.58 L Hgb 7.7 L Hct 23.6 L MCV 91.5 MCH 29.8 MCHC 32.6 RDW 15.5 Plt Count 351 MPV 10.9 Immature Gran % (Auto) Cancelled Neut % (Auto) Cancelled Lymph % (Auto) Cancelled [place] % (Auto) Cancelled Eos % (Auto) Cancelled Baso % (Auto) Cancelled Lymph # (Auto) Cancelled [place] # (Auto) Cancelled Eos # (Auto) Cancelled Baso # (Auto) Cancelled Abs Immat Gran (auto) Cancelled Absolute Neuts (auto) Cancelled Absolute Nucleated RBC 0.000 Nucleated RBC % (auto) 0.0 Neutrophils % (Manual) 71 Band Neutrophils % 13 H Lymphocytes % (Manual) 6 L Atypical Lymphs % (Man) Monocytes % (Manual) 6 Eosinophils % (Manual) 2 Basophils % (Manual) Metamyelocytes % 2 Myelocytes % Promyelocytes % Abs Neuts (Manual) 11.0 H Lymphocytes # (Manual) 0.8 L Atyp Lymphs # (Manual) Monocytes # (Manual) 0.8 Eosinophils # (Manual) 0.3 Basophils # (Manual) Metamyelocytes # 0.3 Myelocytes # Promyelocytes # Nucleated RBCs Smudge Cells Toxic Granulation Toxic Vacuolation Dohle Bodies PRESENT Platelet Estimate SLIGHTLY INCREASED Large Platelets PRESENT Plt Morphology Comment NORMAL RBC Morphology NOTED Polychromasia 1+ (0-2) Hypochromasia Microcytosis Macrocytosis 1+ (5-14) Spherocytes Ovalocytes Stomatocytes 1+ (5-14) Amonate Cells Smear Tech's Comments ESR PT INR aPTT Heparin Protocol Hep-Ind Thrombocytop Com O2 Saturation ABG pH at Pt Temp ABG pCO2 at Pt Temp ABG pO2 at Pt Temp ABG HCO3 ABG Base Excess (Actual) VBG pH VBG pCO2 VBG pO2 VBG HCO3 VBG O2 Saturation VBG Base Excess Sodium Potassium Chloride Carbon Dioxide Anion Gap BUN Creatinine Estim Creat Clear Calc Estimated GFR POC Glucose 138 H 114 Random Glucose Estimat Average Glucose Hemoglobin A1c % Lactic Acid Lactic Acid F/U @ 2Hr Lactic Acid F/U @ 4Hr Calcium Phosphorus Magnesium Total Bilirubin Direct Bilirubin AST ALT Alkaline Phosphatase C-Reactive Protein B-Natriuretic Peptide Total Protein Albumin Triglycerides Lipase Procalcitonin Urine Color Urine Appearance Urine pH Ur Specific [place] Urine Protein Urine Glucose (UA) Urine Ketones Urine Blood Urine Nitrite Ur Leukocyte Esterase Ur Random Sodium Random Vancomycin Heparin Dep Plt Ab OD Hep-Induced Plt Ab Britt C. difficile Tox B Gene COVID-19 ([facility]) COVID-19 Clin Com Blood Type Antibody Screen Crossmatch 06/07/22 06/07/22 06/07/22 05:05 05:07 05:39 WBC RBC Hgb Hct MCV MCH MCHC RDW Plt Count MPV Immature Gran % (Auto) Neut % (Auto) Lymph % (Auto) [place] % (Auto) Eos % (Auto) Baso % (Auto) Lymph # (Auto) [place] # (Auto) Eos # (Auto) Baso # (Auto) Abs Immat Gran (auto) Absolute Neuts (auto) Absolute Nucleated RBC Nucleated RBC % (auto) Neutrophils % (Manual) Band Neutrophils % Lymphocytes % (Manual) Atypical Lymphs % (Man) Monocytes % (Manual) Eosinophils % (Manual) Basophils % (Manual) Metamyelocytes % Myelocytes % Promyelocytes % Abs Neuts (Manual) Lymphocytes # (Manual) Atyp Lymphs # (Manual) Monocytes # (Manual) Eosinophils # (Manual) Basophils # (Manual) Metamyelocytes # Myelocytes # Promyelocytes # Nucleated RBCs Smudge Cells Toxic Granulation Toxic Vacuolation Dohle Bodies Platelet Estimate Large Platelets Plt Morphology Comment RBC Morphology Polychromasia Hypochromasia Microcytosis Macrocytosis Spherocytes Ovalocytes Stomatocytes Susan Cells Smear Tech's Comments ESR PT INR aPTT Heparin Protocol Hep-Ind Thrombocytop Com O2 Saturation ABG pH at Pt Temp ABG pCO2 at Pt Temp ABG pO2 at Pt Temp ABG HCO3 ABG Base Excess (Actual) VBG pH 7.39 VBG pCO2 30 VBG pO2 44 VBG HCO3 19 L VBG O2 Saturation 73.0 VBG Base Excess -5.0 Sodium 140 Potassium 4.7 Chloride 109 H Carbon Dioxide 20 L Anion Gap 16 BUN 24 H Creatinine 0.72 Estim Creat Clear Calc 98.7 Estimated GFR > 60 POC Glucose 129 H Random Glucose 119 H Estimat Average Glucose Hemoglobin A1c % Lactic Acid Lactic Acid F/U @ 2Hr Lactic Acid F/U @ 4Hr Calcium 8.1 L Phosphorus 3.8 Magnesium 1.8 Total Bilirubin Direct Bilirubin AST ALT Alkaline Phosphatase C-Reactive Protein B-Natriuretic Peptide Total Protein Albumin 3.6 Triglycerides Lipase Procalcitonin Urine Color Urine Appearance Urine pH Ur Specific [place] Urine Protein Urine Glucose (UA) Urine Ketones Urine Blood Urine Nitrite Ur Leukocyte Esterase Ur Random Sodium Random Vancomycin Heparin Dep Plt Ab OD Hep-Induced Plt Ab Britt C. difficile Tox B Gene COVID-19 ([facility]ER) COVID-19 Clin Com Blood Type Antibody Screen Crossmatch 06/07/22 06/07/22 06/07/22 12:09 16:41 17:54 WBC RBC Hgb Hct MCV MCH MCHC RDW Plt Count MPV Immature Gran % (Auto) Neut % (Auto) Lymph % (Auto) [place] % (Auto) Eos % (Auto) Baso % (Auto) Lymph # (Auto) [place] # (Auto) Eos # (Auto) Baso # (Auto) Abs Immat Gran (auto) Absolute Neuts (auto) Absolute Nucleated RBC Nucleated RBC % (auto) Neutrophils % (Manual) Band Neutrophils % Lymphocytes % (Manual) Atypical Lymphs % (Man) Monocytes % (Manual) Eosinophils % (Manual) Basophils % (Manual) Metamyelocytes % Myelocytes % Promyelocytes % Abs Neuts (Manual) Lymphocytes # (Manual) Atyp Lymphs # (Manual) Monocytes # (Manual) Eosinophils # (Manual) Basophils # (Manual) Metamyelocytes # Myelocytes # Promyelocytes # Nucleated RBCs Smudge Cells Toxic Granulation Toxic Vacuolation Dohle Bodies Platelet Estimate Large Platelets Plt Morphology Comment RBC Morphology Polychromasia Hypochromasia Microcytosis Macrocytosis Spherocytes Ovalocytes Stomatocytes Amonate Cells Smear Tech's Comments ESR PT INR aPTT Heparin Protocol Hep-Ind Thrombocytop Com O2 Saturation 100.0 ABG pH at Pt Temp 7.47 H ABG pCO2 at Pt Temp 28 L ABG pO2 at Pt Temp 95 ABG HCO3 21 L ABG Base Excess (Actual) -1.7 VBG pH VBG pCO2 VBG pO2 VBG HCO3 VBG O2 Saturation VBG Base Excess Sodium Potassium Chloride Carbon Dioxide Anion Gap BUN Creatinine Estim Creat Clear Calc Estimated GFR POC Glucose 128 H 143 H Random Glucose Estimat Average Glucose Hemoglobin A1c % Lactic Acid Lactic Acid F/U @ 2Hr Lactic Acid F/U @ 4Hr Calcium Phosphorus Magnesium Total Bilirubin Direct Bilirubin AST ALT Alkaline Phosphatase C-Reactive Protein B-Natriuretic Peptide Total Protein Albumin Triglycerides Lipase Procalcitonin Urine Color Urine Appearance Urine pH Ur Specific [place] Urine Protein Urine Glucose (UA) Urine Ketones Urine Blood Urine Nitrite Ur Leukocyte Esterase Ur Random Sodium Random Vancomycin Heparin Dep Plt Ab OD Hep-Induced Plt Ab Britt C. difficile Tox B Gene COVID-19 ([facility]LER) COVID-19 Clin Com Blood Type Antibody Screen Crossmatch 06/07/22 06/07/22 06/08/22 21:39 23:38 05:05 WBC 10.3 RBC 2.36 L Hgb 6.9 L* Hct 21.6 L MCV 91.5 MCH 29.2 MCHC 31.9 RDW 15.9 Plt Count 363 MPV 10.7 Immature Gran % (Auto) 1.7 H Neut % (Auto) 76.1 H Lymph % (Auto) 14.0 L [place] % (Auto) 7.3 Eos % (Auto) 0.5 Baso % (Auto) 0.4 Lymph # (Auto) 1.4 [place] # (Auto) 0.8 Eos # (Auto) 0.1 Baso # (Auto) 0.0 Abs Immat Gran (auto) 0.18 H Absolute Neuts (auto) 7.8 Absolute Nucleated RBC 0.000 Nucleated RBC % (auto) 0.0 Neutrophils % (Manual) Band Neutrophils % Lymphocytes % (Manual) Atypical Lymphs % (Man) Monocytes % (Manual) Eosinophils % (Manual) Basophils % (Manual) Metamyelocytes % Myelocytes % Promyelocytes % Abs Neuts (Manual) Lymphocytes # (Manual) Atyp Lymphs # (Manual) Monocytes # (Manual) Eosinophils # (Manual) Basophils # (Manual) Metamyelocytes # Myelocytes # Promyelocytes # Nucleated RBCs Smudge Cells Toxic Granulation Toxic Vacuolation Dohle Bodies Platelet Estimate Large Platelets Plt Morphology Comment RBC Morphology Polychromasia Hypochromasia Microcytosis Macrocytosis Spherocytes Ovalocytes Stomatocytes Susan Cells Smear Tech's Comments ESR PT INR aPTT Heparin Protocol Hep-Ind Thrombocytop Com O2 Saturation 99.0 ABG pH at Pt Temp 7.43 ABG pCO2 at Pt Temp 33 ABG pO2 at Pt Temp 88 ABG HCO3 22 ABG Base Excess (Actual) -1.1 VBG pH VBG pCO2 VBG pO2 VBG HCO3 VBG O2 Saturation VBG Base Excess Sodium Potassium Chloride Carbon Dioxide Anion Gap BUN Creatinine Estim Creat Clear Calc Estimated GFR POC Glucose 134 H Random Glucose Estimat Average Glucose Hemoglobin A1c % Lactic Acid Lactic Acid F/U @ 2Hr Lactic Acid F/U @ 4Hr Calcium Phosphorus Magnesium Total Bilirubin Direct Bilirubin AST ALT Alkaline Phosphatase C-Reactive Protein B-Natriuretic Peptide Total Protein Albumin Triglycerides Lipase Procalcitonin Urine Color Urine Appearance Urine pH Ur Specific [place] Urine Protein Urine Glucose (UA) Urine Ketones Urine Blood Urine Nitrite Ur Leukocyte Esterase Ur Random Sodium Random Vancomycin Heparin Dep Plt Ab OD Hep-Induced Plt Ab Britt C. difficile Tox B Gene COVID-19 (TYLER) COVID-19 Clin Com Blood Type Antibody Screen Crossmatch 06/08/22 06/08/22 06/08/22 05:05 05:18 05:52 WBC RBC Hgb Hct MCV MCH MCHC RDW Plt Count MPV Immature Gran % (Auto) Neut % (Auto) Lymph % (Auto) [place] % (Auto) Eos % (Auto) Baso % (Auto) Lymph # (Auto) [place] # (Auto) Eos # (Auto) Baso # (Auto) Abs Immat Gran (auto) Absolute Neuts (auto) Absolute Nucleated RBC Nucleated RBC % (auto) Neutrophils % (Manual) Band Neutrophils % Lymphocytes % (Manual) Atypical Lymphs % (Man) Monocytes % (Manual) Eosinophils % (Manual) Basophils % (Manual) Metamyelocytes % Myelocytes % Promyelocytes % Abs Neuts (Manual) Lymphocytes # (Manual) Atyp Lymphs # (Manual) Monocytes # (Manual) Eosinophils # (Manual) Basophils # (Manual) Metamyelocytes # Myelocytes # Promyelocytes # Nucleated RBCs Smudge Cells Toxic Granulation Toxic Vacuolation Dohle Bodies Platelet Estimate Large Platelets Plt Morphology Comment RBC Morphology Polychromasia Hypochromasia Microcytosis Macrocytosis Spherocytes Ovalocytes Stomatocytes Susan Cells Smear Tech's Comments ESR PT INR aPTT Heparin Protocol Hep-Ind Thrombocytop Com O2 Saturation ABG pH at Pt Temp ABG pCO2 at Pt Temp ABG pO2 at Pt Temp ABG HCO3 ABG Base Excess (Actual) VBG pH 7.40 VBG pCO2 35 VBG pO2 41 VBG HCO3 22 VBG O2 Saturation 63.0 VBG Base Excess -1.7 Sodium 144 Potassium 4.4 Chloride 109 H Carbon Dioxide 22 Anion Gap 17 BUN 29 H Creatinine 0.80 Estim Creat Clear Calc 87.8 Estimated GFR > 60 POC Glucose 113 Random Glucose 124 H Estimat Average Glucose Hemoglobin A1c % Lactic Acid Lactic Acid F/U @ 2Hr Lactic Acid F/U @ 4Hr Calcium 8.0 L Phosphorus 4.5 Magnesium 1.8 Total Bilirubin Direct Bilirubin AST ALT Alkaline Phosphatase C-Reactive Protein B-Natriuretic Peptide Total Protein Albumin 3.2 L Triglycerides Lipase Procalcitonin Urine Color Urine Appearance Urine pH Ur Specific [place] Urine Protein Urine Glucose (UA) Urine Ketones Urine Blood Urine Nitrite Ur Leukocyte Esterase Ur Random Sodium Random Vancomycin Heparin Dep Plt Ab OD Hep-Induced Plt Ab Britt C. difficile Tox B Gene COVID-19 (TYLER) COVID-19 Clin Com Blood Type Antibody Screen Crossmatch 06/08/22 06/08/22 06/08/22 06:30 11:41 17:48 WBC RBC Hgb Hct MCV MCH MCHC RDW Plt Count MPV Immature Gran % (Auto) Neut % (Auto) Lymph % (Auto) [place] % (Auto) Eos % (Auto) Baso % (Auto) Lymph # (Auto) [place] # (Auto) Eos # (Auto) Baso # (Auto) Abs Immat Gran (auto) Absolute Neuts (auto) Absolute Nucleated RBC Nucleated RBC % (auto) Neutrophils % (Manual) Band Neutrophils % Lymphocytes % (Manual) Atypical Lymphs % (Man) Monocytes % (Manual) Eosinophils % (Manual) Basophils % (Manual) Metamyelocytes % Myelocytes % Promyelocytes % Abs Neuts (Manual) Lymphocytes # (Manual) Atyp Lymphs # (Manual) Monocytes # (Manual) Eosinophils # (Manual) Basophils # (Manual) Metamyelocytes # Myelocytes # Promyelocytes # Nucleated RBCs Smudge Cells Toxic Granulation Toxic Vacuolation Dohle Bodies Platelet Estimate Large Platelets Plt Morphology Comment RBC Morphology Polychromasia Hypochromasia Microcytosis Macrocytosis Spherocytes Ovalocytes Stomatocytes Susan Cells Smear Tech's Comments ESR PT INR aPTT Heparin Protocol Hep-Ind Thrombocytop Com O2 Saturation ABG pH at Pt Temp ABG pCO2 at Pt Temp ABG pO2 at Pt Temp ABG HCO3 ABG Base Excess (Actual) VBG pH VBG pCO2 VBG pO2 VBG HCO3 VBG O2 Saturation VBG Base Excess Sodium Potassium Chloride Carbon Dioxide Anion Gap BUN Creatinine Estim Creat Clear Calc Estimated GFR POC Glucose 132 H 116 H Random Glucose Estimat Average Glucose Hemoglobin A1c % Lactic Acid Lactic Acid F/U @ 2Hr Lactic Acid F/U @ 4Hr Calcium Phosphorus Magnesium Total Bilirubin Direct Bilirubin AST ALT Alkaline Phosphatase C-Reactive Protein B-Natriuretic Peptide Total Protein Albumin Triglycerides Lipase Procalcitonin Urine Color Urine Appearance Urine pH Ur Specific [place] Urine Protein Urine Glucose (UA) Urine Ketones Urine Blood Urine Nitrite Ur Leukocyte Esterase Ur Random Sodium Random Vancomycin Heparin Dep Plt Ab OD Hep-Induced Plt Ab Britt C. difficile Tox B Gene COVID-19 ([facility]) COVID-19 Clin Com Blood Type B Positive Antibody Screen NEGATIVE Crossmatch See Detail 06/09/22 06/09/22 06/09/22 00:13 05:15 05:15 WBC 10.0 RBC 2.91 L D Hgb 8.5 L D Hct 26.1 L D MCV 89.7 MCH 29.2 MCHC 32.6 RDW 16.6 H Plt Count 411 H MPV 10.2 Immature Gran % (Auto) 1.1 H Neut % (Auto) 77.3 H Lymph % (Auto) 13.4 L [place] % (Auto) 7.7 Eos % (Auto) 0.0 Baso % (Auto) 0.5 Lymph # (Auto) 1.3 [place] # (Auto) 0.8 Eos # (Auto) 0.0 Baso # (Auto) 0.1 Abs Immat Gran (auto) 0.11 H Absolute Neuts (auto) 7.7 Absolute Nucleated RBC 0.000 Nucleated RBC % (auto) 0.0 Neutrophils % (Manual) Band Neutrophils % Lymphocytes % (Manual) Atypical Lymphs % (Man) Monocytes % (Manual) Eosinophils % (Manual) Basophils % (Manual) Metamyelocytes % Myelocytes % Promyelocytes % Abs Neuts (Manual) Lymphocytes # (Manual) Atyp Lymphs # (Manual) Monocytes # (Manual) Eosinophils # (Manual) Basophils # (Manual) Metamyelocytes # Myelocytes # Promyelocytes # Nucleated RBCs Smudge Cells Toxic Granulation Toxic Vacuolation Dohle Bodies Platelet Estimate Large Platelets Plt Morphology Comment RBC Morphology Polychromasia Hypochromasia Microcytosis Macrocytosis Spherocytes Ovalocytes Stomatocytes Susan Cells Smear Tech's Comments ESR PT INR aPTT Heparin Protocol Hep-Ind Thrombocytop Com O2 Saturation ABG pH at Pt Temp ABG pCO2 at Pt Temp ABG pO2 at Pt Temp ABG HCO3 ABG Base Excess (Actual) VBG pH VBG pCO2 VBG pO2 VBG HCO3 VBG O2 Saturation VBG Base Excess Sodium 146 H Potassium 3.8 Chloride 107 Carbon Dioxide 26 Anion Gap 17 BUN 30 H Creatinine 0.79 Estim Creat Clear Calc 87.7 Estimated GFR > 60 POC Glucose 138 H Random Glucose 151 H Estimat Average Glucose Hemoglobin A1c % Lactic Acid Lactic Acid F/U @ 2Hr Lactic Acid F/U @ 4Hr Calcium 8.1 L Phosphorus 4.8 H Magnesium 2.0 Total Bilirubin 0.7 Direct Bilirubin AST 17 ALT 12 Alkaline Phosphatase 61 C-Reactive Protein B-Natriuretic Peptide Total Protein 5.7 L D Albumin 3.2 L Triglycerides Lipase Procalcitonin Urine Color Urine Appearance Urine pH Ur Specific [place] Urine Protein Urine Glucose (UA) Urine Ketones Urine Blood Urine Nitrite Ur Leukocyte Esterase Ur Random Sodium Random Vancomycin Heparin Dep Plt Ab OD Hep-Induced Plt Ab Britt C. difficile Tox B Gene COVID-19 ([facility]) COVID-19 Clin Com Blood Type Antibody Screen Crossmatch 06/09/22 06/09/22 06/09/22 05:15 05:20 05:55 WBC RBC Hgb Hct MCV MCH MCHC RDW Plt Count MPV Immature Gran % (Auto) Neut % (Auto) Lymph % (Auto) [place] % (Auto) Eos % (Auto) Baso % (Auto) Lymph # (Auto) [place] # (Auto) Eos # (Auto) Baso # (Auto) Abs Immat Gran (auto) Absolute Neuts (auto) Absolute Nucleated RBC Nucleated RBC % (auto) Neutrophils % (Manual) Band Neutrophils % Lymphocytes % (Manual) Atypical Lymphs % (Man) Monocytes % (Manual) Eosinophils % (Manual) Basophils % (Manual) Metamyelocytes % Myelocytes % Promyelocytes % Abs Neuts (Manual) Lymphocytes # (Manual) Atyp Lymphs # (Manual) Monocytes # (Manual) Eosinophils # (Manual) Basophils # (Manual) Metamyelocytes # Myelocytes # Promyelocytes # Nucleated RBCs Smudge Cells Toxic Granulation Toxic Vacuolation Dohle Bodies Platelet Estimate Large Platelets Plt Morphology Comment RBC Morphology Polychromasia Hypochromasia Microcytosis Macrocytosis Spherocytes Ovalocytes Stomatocytes Amonate Cells Smear Tech's Comments ESR PT INR aPTT Heparin Protocol Hep-Ind Thrombocytop Com O2 Saturation ABG pH at Pt Temp ABG pCO2 at Pt Temp ABG pO2 at Pt Temp ABG HCO3 ABG Base Excess (Actual) VBG pH 7.39 VBG pCO2 41 VBG pO2 45 VBG HCO3 25 VBG O2 Saturation 73.0 VBG Base Excess 0.9 Sodium Potassium Chloride Carbon Dioxide Anion Gap BUN Creatinine Estim Creat Clear Calc Estimated GFR POC Glucose 139 H Random Glucose Estimat Average Glucose Hemoglobin A1c % Lactic Acid Lactic Acid F/U @ 2Hr Lactic Acid F/U @ 4Hr Calcium Phosphorus Magnesium Total Bilirubin Direct Bilirubin AST ALT Alkaline Phosphatase C-Reactive Protein B-Natriuretic Peptide 2848 H Total Protein Albumin Triglycerides Lipase Procalcitonin Urine Color Urine Appearance Urine pH Ur Specific [place] Urine Protein Urine Glucose (UA) Urine Ketones Urine Blood Urine Nitrite Ur Leukocyte Esterase Ur Random Sodium Random Vancomycin Heparin Dep Plt Ab OD Hep-Induced Plt Ab Britt C. difficile Tox B Gene COVID-19 ([facility]) COVID-19 Clin Com Blood Type Antibody Screen Crossmatch 06/09/22 06/09/22 06/09/22 12:01 18:09 20:14 WBC RBC Hgb Hct MCV MCH MCHC RDW Plt Count MPV Immature Gran % (Auto) Neut % (Auto) Lymph % (Auto) [place] % (Auto) Eos % (Auto) Baso % (Auto) Lymph # (Auto) [place] # (Auto) Eos # (Auto) Baso # (Auto) Abs Immat Gran (auto) Absolute Neuts (auto) Absolute Nucleated RBC Nucleated RBC % (auto) Neutrophils % (Manual) Band Neutrophils % Lymphocytes % (Manual) Atypical Lymphs % (Man) Monocytes % (Manual) Eosinophils % (Manual) Basophils % (Manual) Metamyelocytes % Myelocytes % Promyelocytes % Abs Neuts (Manual) Lymphocytes # (Manual) Atyp Lymphs # (Manual) Monocytes # (Manual) Eosinophils # (Manual) Basophils # (Manual) Metamyelocytes # Myelocytes # Promyelocytes # Nucleated RBCs Smudge Cells Toxic Granulation Toxic Vacuolation Dohle Bodies Platelet Estimate Large Platelets Plt Morphology Comment RBC Morphology Polychromasia Hypochromasia Microcytosis Macrocytosis Spherocytes Ovalocytes Stomatocytes Amonate Cells Smear Tech's Comments ESR PT INR aPTT Heparin Protocol Hep-Ind Thrombocytop Com O2 Saturation ABG pH at Pt Temp ABG pCO2 at Pt Temp ABG pO2 at Pt Temp ABG HCO3 ABG Base Excess (Actual) VBG pH VBG pCO2 VBG pO2 VBG HCO3 VBG O2 Saturation VBG Base Excess Sodium 146 H Potassium 3.3 Chloride 106 Carbon Dioxide 26 Anion Gap 17 BUN 30 H Creatinine 0.80 Estim Creat Clear Calc 86.6 Estimated GFR > 60 POC Glucose 138 H 147 H Random Glucose 164 H Estimat Average Glucose Hemoglobin A1c % Lactic Acid Lactic Acid F/U @ 2Hr Lactic Acid F/U @ 4Hr Calcium 8.3 L Phosphorus Magnesium Total Bilirubin Direct Bilirubin AST ALT Alkaline Phosphatase C-Reactive Protein B-Natriuretic Peptide Total Protein Albumin Triglycerides Lipase Procalcitonin Urine Color Urine Appearance Urine pH Ur Specific [place] Urine Protein Urine Glucose (UA) Urine Ketones Urine Blood Urine Nitrite Ur Leukocyte Esterase Ur Random Sodium Random Vancomycin Heparin Dep Plt Ab OD Hep-Induced Plt Ab Britt C. difficile Tox B Gene COVID-19 ([facility]) COVID-19 Clin Com Blood Type Antibody Screen Crossmatch 06/09/22 06/10/22 06/10/22 23:32 05:15 05:15 WBC 10.0 RBC 2.80 L Hgb 8.1 L Hct 25.8 L MCV 92.1 MCH 28.9 MCHC 31.4 RDW 16.7 H Plt Count 432 H MPV 10.3 Immature Gran % (Auto) 0.9 H Neut % (Auto) 75.4 H Lymph % (Auto) 14.1 L [place] % (Auto) 8.6 Eos % (Auto) 0.4 Baso % (Auto) 0.6 Lymph # (Auto) 1.4 [place] # (Auto) 0.9 Eos # (Auto) 0.0 Baso # (Auto) 0.1 Abs Immat Gran (auto) 0.09 H Absolute Neuts (auto) 7.5 Absolute Nucleated RBC 0.000 Nucleated RBC % (auto) 0.0 Neutrophils % (Manual) Band Neutrophils % Lymphocytes % (Manual) Atypical Lymphs % (Man) Monocytes % (Manual) Eosinophils % (Manual) Basophils % (Manual) Metamyelocytes % Myelocytes % Promyelocytes % Abs Neuts (Manual) Lymphocytes # (Manual) Atyp Lymphs # (Manual) Monocytes # (Manual) Eosinophils # (Manual) Basophils # (Manual) Metamyelocytes # Myelocytes # Promyelocytes # Nucleated RBCs Smudge Cells Toxic Granulation Toxic Vacuolation Dohle Bodies Platelet Estimate Large Platelets Plt Morphology Comment RBC Morphology Polychromasia Hypochromasia Microcytosis Macrocytosis Spherocytes Ovalocytes Stomatocytes Amonate Cells Smear Tech's Comments VERIFIED ESR PT INR aPTT Heparin Protocol Hep-Ind Thrombocytop Com O2 Saturation ABG pH at Pt Temp ABG pCO2 at Pt Temp ABG pO2 at Pt Temp ABG HCO3 ABG Base Excess (Actual) VBG pH VBG pCO2 VBG pO2 VBG HCO3 VBG O2 Saturation VBG Base Excess Sodium 150 H Potassium 4.1 D Chloride 110 H Carbon Dioxide 29 Anion Gap 15 BUN 28 H Creatinine 0.71 Estim Creat Clear Calc 97.6 Estimated GFR > 60 POC Glucose 162 H Random Glucose 135 H Estimat Average Glucose Hemoglobin A1c % Lactic Acid Lactic Acid F/U @ 2Hr Lactic Acid F/U @ 4Hr Calcium 8.3 L Phosphorus 3.5 Magnesium 1.8 Total Bilirubin Direct Bilirubin AST ALT Alkaline Phosphatase C-Reactive Protein B-Natriuretic Peptide Total Protein Albumin 4.0 D Triglycerides Lipase Procalcitonin Urine Color Urine Appearance Urine pH Ur Specific [place] Urine Protein Urine Glucose (UA) Urine Ketones Urine Blood Urine Nitrite Ur Leukocyte Esterase Ur Random Sodium Random Vancomycin Heparin Dep Plt Ab OD Hep-Induced Plt Ab Britt C. difficile Tox B Gene COVID-19 ([facility]) COVID-19 Clin Com Blood Type Antibody Screen Crossmatch 06/10/22 06/10/22 06/10/22 05:21 05:26 05:37 WBC RBC Hgb Hct MCV MCH MCHC RDW Plt Count MPV Immature Gran % (Auto) Neut % (Auto) Lymph % (Auto) [place] % (Auto) Eos % (Auto) Baso % (Auto) Lymph # (Auto) [place] # (Auto) Eos # (Auto) Baso # (Auto) Abs Immat Gran (auto) Absolute Neuts (auto) Absolute Nucleated RBC Nucleated RBC % (auto) Neutrophils % (Manual) Band Neutrophils % Lymphocytes % (Manual) Atypical Lymphs % (Man) Monocytes % (Manual) Eosinophils % (Manual) Basophils % (Manual) Metamyelocytes % Myelocytes % Promyelocytes % Abs Neuts (Manual) Lymphocytes # (Manual) Atyp Lymphs # (Manual) Monocytes # (Manual) Eosinophils # (Manual) Basophils # (Manual) Metamyelocytes # Myelocytes # Promyelocytes # Nucleated RBCs Smudge Cells Toxic Granulation Toxic Vacuolation Dohle Bodies Platelet Estimate Large Platelets Plt Morphology Comment RBC Morphology Polychromasia Hypochromasia Microcytosis Macrocytosis Spherocytes Ovalocytes Stomatocytes Amonate Cells Smear Tech's Comments ESR PT INR aPTT Heparin Protocol Hep-Ind Thrombocytop Com O2 Saturation ABG pH at Pt Temp ABG pCO2 at Pt Temp ABG pO2 at Pt Temp ABG HCO3 ABG Base Excess (Actual) VBG pH 7.38 VBG pCO2 51 VBG pO2 50 VBG HCO3 30 H VBG O2 Saturation 77.0 VBG Base Excess 5.0 Sodium Potassium Chloride Carbon Dioxide Anion Gap BUN Creatinine Estim Creat Clear Calc Estimated GFR POC Glucose 125 H 132 H Random Glucose Estimat Average Glucose Hemoglobin A1c % Lactic Acid Lactic Acid F/U @ 2Hr Lactic Acid F/U @ 4Hr Calcium Phosphorus Magnesium Total Bilirubin Direct Bilirubin AST ALT Alkaline Phosphatase C-Reactive Protein B-Natriuretic Peptide Total Protein Albumin Triglycerides Lipase Procalcitonin Urine Color Urine Appearance Urine pH Ur Specific [place] Urine Protein Urine Glucose (UA) Urine Ketones Urine Blood Urine Nitrite Ur Leukocyte Esterase Ur Random Sodium Random Vancomycin Heparin Dep Plt Ab OD Hep-Induced Plt Ab Britt C. difficile Tox B Gene COVID-19 ([facility]) COVID-19 Clin Com Blood Type Antibody Screen Crossmatch 06/10/22 06/10/22 06/10/22 09:30 11:45 18:12 WBC RBC Hgb Hct MCV MCH MCHC RDW Plt Count MPV Immature Gran % (Auto) Neut % (Auto) Lymph % (Auto) [place] % (Auto) Eos % (Auto) Baso % (Auto) Lymph # (Auto) [place] # (Auto) Eos # (Auto) Baso # (Auto) Abs Immat Gran (auto) Absolute Neuts (auto) Absolute Nucleated RBC Nucleated RBC % (auto) Neutrophils % (Manual) Band Neutrophils % Lymphocytes % (Manual) Atypical Lymphs % (Man) Monocytes % (Manual) Eosinophils % (Manual) Basophils % (Manual) Metamyelocytes % Myelocytes % Promyelocytes % Abs Neuts (Manual) Lymphocytes # (Manual) Atyp Lymphs # (Manual) Monocytes # (Manual) Eosinophils # (Manual) Basophils # (Manual) Metamyelocytes # Myelocytes # Promyelocytes # Nucleated RBCs Smudge Cells Toxic Granulation Toxic Vacuolation Dohle Bodies Platelet Estimate Large Platelets Plt Morphology Comment RBC Morphology Polychromasia Hypochromasia Microcytosis Macrocytosis Spherocytes Ovalocytes Stomatocytes Amonate Cells Smear Tech's Comments ESR PT INR aPTT Heparin Protocol Hep-Ind Thrombocytop Com O2 Saturation ABG pH at Pt Temp ABG pCO2 at Pt Temp ABG pO2 at Pt Temp ABG HCO3 ABG Base Excess (Actual) VBG pH 7.36 VBG pCO2 50 VBG pO2 65 VBG HCO3 28 H VBG O2 Saturation 93.0 VBG Base Excess 2.8 Sodium Potassium Chloride Carbon Dioxide Anion Gap BUN Creatinine Estim Creat Clear Calc Estimated GFR POC Glucose 145 H 214 H Random Glucose Estimat Average Glucose Hemoglobin A1c % Lactic Acid Lactic Acid F/U @ 2Hr Lactic Acid F/U @ 4Hr Calcium Phosphorus Magnesium Total Bilirubin Direct Bilirubin AST ALT Alkaline Phosphatase C-Reactive Protein B-Natriuretic Peptide Total Protein Albumin Triglycerides Lipase Procalcitonin Urine Color Urine Appearance Urine pH Ur Specific [place] Urine Protein Urine Glucose (UA) Urine Ketones Urine Blood Urine Nitrite Ur Leukocyte Esterase Ur Random Sodium Random Vancomycin Heparin Dep Plt Ab OD Hep-Induced Plt Ab Britt C. difficile Tox B Gene COVID-19 ([facility]) COVID-19 Clin Com Blood Type Antibody Screen Crossmatch 06/10/22 06/11/22 06/11/22 19:09 00:39 05:17 WBC RBC Hgb Hct MCV MCH MCHC RDW Plt Count MPV Immature Gran % (Auto) Neut % (Auto) Lymph % (Auto) [place] % (Auto) Eos % (Auto) Baso % (Auto) Lymph # (Auto) [place] # (Auto) Eos # (Auto) Baso # (Auto) Abs Immat Gran (auto) Absolute Neuts (auto) Absolute Nucleated RBC Nucleated RBC % (auto) Neutrophils % (Manual) Band Neutrophils % Lymphocytes % (Manual) Atypical Lymphs % (Man) Monocytes % (Manual) Eosinophils % (Manual) Basophils % (Manual) Metamyelocytes % Myelocytes % Promyelocytes % Abs Neuts (Manual) Lymphocytes # (Manual) Atyp Lymphs # (Manual) Monocytes # (Manual) Eosinophils # (Manual) Basophils # (Manual) Metamyelocytes # Myelocytes # Promyelocytes # Nucleated RBCs Smudge Cells Toxic Granulation Toxic Vacuolation Dohle Bodies Platelet Estimate Large Platelets Plt Morphology Comment RBC Morphology Polychromasia Hypochromasia Microcytosis Macrocytosis Spherocytes Ovalocytes Stomatocytes Susan Cells Smear Tech's Comments ESR PT INR aPTT Heparin Protocol Hep-Ind Thrombocytop Com O2 Saturation ABG pH at Pt Temp ABG pCO2 at Pt Temp ABG pO2 at Pt Temp ABG HCO3 ABG Base Excess (Actual) VBG pH 7.44 H VBG pCO2 55 VBG pO2 44 VBG HCO3 38 H VBG O2 Saturation 70.0 VBG Base Excess 12.9 Sodium 146 H Potassium 3.7 Chloride 103 Carbon Dioxide 30 H Anion Gap 17 BUN 23 H Creatinine 0.76 Estim Creat Clear Calc 90.7 Estimated GFR > 60 POC Glucose 164 H Random Glucose 217 H Estimat Average Glucose Hemoglobin A1c % Lactic Acid Lactic Acid F/U @ 2Hr Lactic Acid F/U @ 4Hr Calcium 7.9 L Phosphorus Magnesium Total Bilirubin Direct Bilirubin AST ALT Alkaline Phosphatase C-Reactive Protein B-Natriuretic Peptide Total Protein Albumin Triglycerides Lipase Procalcitonin Urine Color Urine Appearance Urine pH Ur Specific [place] Urine Protein Urine Glucose (UA) Urine Ketones Urine Blood Urine Nitrite Ur Leukocyte Esterase Ur Random Sodium Random Vancomycin Heparin Dep Plt Ab OD Hep-Induced Plt Ab Britt C. difficile Tox B Gene COVID-19 ([facility]) COVID-19 Clin Com Blood Type Antibody Screen Crossmatch 06/11/22 06/11/22 06/11/22 05:20 05:20 05:20 WBC 11.6 H RBC 2.91 L Hgb 8.3 L Hct 26.8 L MCV 92.1 MCH 28.5 MCHC 31.0 RDW 16.3 H Plt Count 419 H MPV 10.2 Immature Gran % (Auto) Neut % (Auto) Lymph % (Auto) [place] % (Auto) Eos % (Auto) Baso % (Auto) Lymph # (Auto) [place] # (Auto) Eos # (Auto) Baso # (Auto) Abs Immat Gran (auto) Absolute Neuts (auto) Absolute Nucleated RBC 0.000 Nucleated RBC % (auto) 0.0 Neutrophils % (Manual) Band Neutrophils % Lymphocytes % (Manual) Atypical Lymphs % (Man) Monocytes % (Manual) Eosinophils % (Manual) Basophils % (Manual) Metamyelocytes % Myelocytes % Promyelocytes % Abs Neuts (Manual) Lymphocytes # (Manual) Atyp Lymphs # (Manual) Monocytes # (Manual) Eosinophils # (Manual) Basophils # (Manual) Metamyelocytes # Myelocytes # Promyelocytes # Nucleated RBCs Smudge Cells Toxic Granulation Toxic Vacuolation Dohle Bodies Platelet Estimate Large Platelets Plt Morphology Comment RBC Morphology Polychromasia Hypochromasia Microcytosis Macrocytosis Spherocytes Ovalocytes Stomatocytes Amonate Cells Smear Tech's Comments ESR PT INR aPTT Heparin Protocol Hep-Ind Thrombocytop Com O2 Saturation ABG pH at Pt Temp ABG pCO2 at Pt Temp ABG pO2 at Pt Temp ABG HCO3 ABG Base Excess (Actual) VBG pH VBG pCO2 VBG pO2 VBG HCO3 VBG O2 Saturation VBG Base Excess Sodium 140 Potassium 3.5 Chloride 98 Carbon Dioxide 32 H Anion Gap 14 BUN 18 H Creatinine 0.65 Estim Creat Clear Calc 106.0 Estimated GFR > 60 POC Glucose Random Glucose 177 H Estimat Average Glucose Hemoglobin A1c % Lactic Acid Lactic Acid F/U @ 2Hr Lactic Acid F/U @ 4Hr Calcium 7.6 L Phosphorus 2.6 L Magnesium 1.6 Total Bilirubin Direct Bilirubin AST ALT Alkaline Phosphatase C-Reactive Protein B-Natriuretic Peptide Total Protein Albumin 3.3 L Triglycerides Lipase Procalcitonin 1.61 Urine Color Urine Appearance Urine pH Ur Specific [place] Urine Protein Urine Glucose (UA) Urine Ketones Urine Blood Urine Nitrite Ur Leukocyte Esterase Ur Random Sodium Random Vancomycin Heparin Dep Plt Ab OD Hep-Induced Plt Ab Britt C. difficile Tox B Gene COVID-19 ([facility]) COVID-19 Clin Com Blood Type Antibody Screen Crossmatch 06/11/22 06/11/22 06/11/22 05:35 11:34 17:29 WBC RBC Hgb Hct MCV MCH MCHC RDW Plt Count MPV Immature Gran % (Auto) Neut % (Auto) Lymph % (Auto) [place] % (Auto) Eos % (Auto) Baso % (Auto) Lymph # (Auto) [place] # (Auto) Eos # (Auto) Baso # (Auto) Abs Immat Gran (auto) Absolute Neuts (auto) Absolute Nucleated RBC Nucleated RBC % (auto) Neutrophils % (Manual) Band Neutrophils % Lymphocytes % (Manual) Atypical Lymphs % (Man) Monocytes % (Manual) Eosinophils % (Manual) Basophils % (Manual) Metamyelocytes % Myelocytes % Promyelocytes % Abs Neuts (Manual) Lymphocytes # (Manual) Atyp Lymphs # (Manual) Monocytes # (Manual) Eosinophils # (Manual) Basophils # (Manual) Metamyelocytes # Myelocytes # Promyelocytes # Nucleated RBCs Smudge Cells Toxic Granulation Toxic Vacuolation Dohle Bodies Platelet Estimate Large Platelets Plt Morphology Comment RBC Morphology Polychromasia Hypochromasia Microcytosis Macrocytosis Spherocytes Ovalocytes Stomatocytes Susan Cells Smear Tech's Comments ESR PT INR aPTT Heparin Protocol Hep-Ind Thrombocytop Com O2 Saturation ABG pH at Pt Temp ABG pCO2 at Pt Temp ABG pO2 at Pt Temp ABG HCO3 ABG Base Excess (Actual) VBG pH VBG pCO2 VBG pO2 VBG HCO3 VBG O2 Saturation VBG Base Excess Sodium Potassium Chloride Carbon Dioxide Anion Gap BUN Creatinine Estim Creat Clear Calc Estimated GFR POC Glucose 168 H 193 H 145 H Random Glucose Estimat Average Glucose Hemoglobin A1c % Lactic Acid Lactic Acid F/U @ 2Hr Lactic Acid F/U @ 4Hr Calcium Phosphorus Magnesium Total Bilirubin Direct Bilirubin AST ALT Alkaline Phosphatase C-Reactive Protein B-Natriuretic Peptide Total Protein Albumin Triglycerides Lipase Procalcitonin Urine Color Urine Appearance Urine pH Ur Specific [place] Urine Protein Urine Glucose (UA) Urine Ketones Urine Blood Urine Nitrite Ur Leukocyte Esterase Ur Random Sodium Random Vancomycin Heparin Dep Plt Ab OD Hep-Induced Plt Ab Britt C. difficile Tox B Gene COVID-19 ([facility]) COVID-19 Clin Com Blood Type Antibody Screen Crossmatch 06/11/22 06/12/22 06/12/22 23:59 05:30 05:30 WBC 15.2 H RBC 2.99 L Hgb 8.8 L Hct 27.2 L MCV 91.0 MCH 29.4 MCHC 32.4 RDW 15.7 Plt Count 484 H MPV 10.5 Immature Gran % (Auto) Neut % (Auto) Lymph % (Auto) [place] % (Auto) Eos % (Auto) Baso % (Auto) Lymph # (Auto) [place] # (Auto) Eos # (Auto) Baso # (Auto) Abs Immat Gran (auto) Absolute Neuts (auto) Absolute Nucleated RBC 0.000 Nucleated RBC % (auto) 0.0 Neutrophils % (Manual) Band Neutrophils % Lymphocytes % (Manual) Atypical Lymphs % (Man) Monocytes % (Manual) Eosinophils % (Manual) Basophils % (Manual) Metamyelocytes % Myelocytes % Promyelocytes % Abs Neuts (Manual) Lymphocytes # (Manual) Atyp Lymphs # (Manual) Monocytes # (Manual) Eosinophils # (Manual) Basophils # (Manual) Metamyelocytes # Myelocytes # Promyelocytes # Nucleated RBCs Smudge Cells Toxic Granulation Toxic Vacuolation Dohle Bodies Platelet Estimate Large Platelets Plt Morphology Comment RBC Morphology Polychromasia Hypochromasia Microcytosis Macrocytosis Spherocytes Ovalocytes Stomatocytes Susan Cells Smear Tech's Comments ESR PT INR aPTT Heparin Protocol Hep-Ind Thrombocytop Com O2 Saturation ABG pH at Pt Temp ABG pCO2 at Pt Temp ABG pO2 at Pt Temp ABG HCO3 ABG Base Excess (Actual) VBG pH VBG pCO2 VBG pO2 VBG HCO3 VBG O2 Saturation VBG Base Excess Sodium 140 Potassium 3.0 L Chloride 96 Carbon Dioxide 35 H Anion Gap 12 BUN 13 Creatinine 0.63 Estim Creat Clear Calc 109.7 Estimated GFR > 60 POC Glucose 193 H Random Glucose 217 H Estimat Average Glucose Hemoglobin A1c % Lactic Acid Lactic Acid F/U @ 2Hr Lactic Acid F/U @ 4Hr Calcium 7.8 L Phosphorus 1.7 L Magnesium 1.8 Total Bilirubin 0.7 Direct Bilirubin AST 14 ALT 8 Alkaline Phosphatase 59 C-Reactive Protein B-Natriuretic Peptide Total Protein 5.7 L Albumin 3.2 L Triglycerides Lipase Procalcitonin Urine Color Urine Appearance Urine pH Ur Specific [place] Urine Protein Urine Glucose (UA) Urine Ketones Urine Blood Urine Nitrite Ur Leukocyte Esterase Ur Random Sodium Random Vancomycin Heparin Dep Plt Ab OD Hep-Induced Plt Ab Britt C. difficile Tox B Gene COVID-19 ([facility]ER) COVID-19 Clin Com Blood Type Antibody Screen Crossmatch 06/12/22 06/12/22 06/12/22 05:30 06:31 12:06 WBC RBC Hgb Hct MCV MCH MCHC RDW Plt Count MPV Immature Gran % (Auto) Neut % (Auto) Lymph % (Auto) [place] % (Auto) Eos % (Auto) Baso % (Auto) Lymph # (Auto) [place] # (Auto) Eos # (Auto) Baso # (Auto) Abs Immat Gran (auto) Absolute Neuts (auto) Absolute Nucleated RBC Nucleated RBC % (auto) Neutrophils % (Manual) Band Neutrophils % Lymphocytes % (Manual) Atypical Lymphs % (Man) Monocytes % (Manual) Eosinophils % (Manual) Basophils % (Manual) Metamyelocytes % Myelocytes % Promyelocytes % Abs Neuts (Manual) Lymphocytes # (Manual) Atyp Lymphs # (Manual) Monocytes # (Manual) Eosinophils # (Manual) Basophils # (Manual) Metamyelocytes # Myelocytes # Promyelocytes # Nucleated RBCs Smudge Cells Toxic Granulation Toxic Vacuolation Dohle Bodies Platelet Estimate Large Platelets Plt Morphology Comment RBC Morphology Polychromasia Hypochromasia Microcytosis Macrocytosis Spherocytes Ovalocytes Stomatocytes Susan Cells Smear Tech's Comments ESR PT INR aPTT Heparin Protocol Hep-Ind Thrombocytop Com O2 Saturation ABG pH at Pt Temp ABG pCO2 at Pt Temp ABG pO2 at Pt Temp ABG HCO3 ABG Base Excess (Actual) VBG pH 7.47 H VBG pCO2 50 VBG pO2 46 VBG HCO3 36 H VBG O2 Saturation 74.0 VBG Base Excess 11.7 Sodium Potassium Chloride Carbon Dioxide Anion Gap BUN Creatinine Estim Creat Clear Calc Estimated GFR POC Glucose 201 H 164 H Random Glucose Estimat Average Glucose Hemoglobin A1c % Lactic Acid Lactic Acid F/U @ 2Hr Lactic Acid F/U @ 4Hr Calcium Phosphorus Magnesium Total Bilirubin Direct Bilirubin AST ALT Alkaline Phosphatase C-Reactive Protein B-Natriuretic Peptide Total Protein Albumin Triglycerides Lipase Procalcitonin Urine Color Urine Appearance Urine pH Ur Specific [place] Urine Protein Urine Glucose (UA) Urine Ketones Urine Blood Urine Nitrite Ur Leukocyte Esterase Ur Random Sodium Random Vancomycin Heparin Dep Plt Ab OD Hep-Induced Plt Ab Britt C. difficile Tox B Gene COVID-19 ([facility]) COVID-19 Clin Com Blood Type Antibody Screen Crossmatch 06/12/22 06/12/22 06/13/22 18:13 23:33 05:08 WBC 18.0 H RBC 3.18 L Hgb 9.2 L Hct 29.5 L MCV 92.8 MCH 28.9 MCHC 31.2 RDW 16.0 Plt Count 551 H MPV 10.5 Immature Gran % (Auto) Neut % (Auto) Lymph % (Auto) [place] % (Auto) Eos % (Auto) Baso % (Auto) Lymph # (Auto) [place] # (Auto) Eos # (Auto) Baso # (Auto) Abs Immat Gran (auto) Absolute Neuts (auto) Absolute Nucleated RBC 0.000 Nucleated RBC % (auto) 0.0 Neutrophils % (Manual) Band Neutrophils % Lymphocytes % (Manual) Atypical Lymphs % (Man) Monocytes % (Manual) Eosinophils % (Manual) Basophils % (Manual) Metamyelocytes % Myelocytes % Promyelocytes % Abs Neuts (Manual) Lymphocytes # (Manual) Atyp Lymphs # (Manual) Monocytes # (Manual) Eosinophils # (Manual) Basophils # (Manual) Metamyelocytes # Myelocytes # Promyelocytes # Nucleated RBCs Smudge Cells Toxic Granulation Toxic Vacuolation Dohle Bodies Platelet Estimate Large Platelets Plt Morphology Comment RBC Morphology Polychromasia Hypochromasia Microcytosis Macrocytosis Spherocytes Ovalocytes Stomatocytes Amonate Cells Smear Tech's Comments ESR PT INR aPTT Heparin Protocol Hep-Ind Thrombocytop Com O2 Saturation ABG pH at Pt Temp ABG pCO2 at Pt Temp ABG pO2 at Pt Temp ABG HCO3 ABG Base Excess (Actual) VBG pH VBG pCO2 VBG pO2 VBG HCO3 VBG O2 Saturation VBG Base Excess Sodium Potassium Chloride Carbon Dioxide Anion Gap BUN Creatinine Estim Creat Clear Calc Estimated GFR POC Glucose 171 H 146 H Random Glucose Estimat Average Glucose Hemoglobin A1c % Lactic Acid Lactic Acid F/U @ 2Hr Lactic Acid F/U @ 4Hr Calcium Phosphorus Magnesium Total Bilirubin Direct Bilirubin AST ALT Alkaline Phosphatase C-Reactive Protein B-Natriuretic Peptide Total Protein Albumin Triglycerides Lipase Procalcitonin Urine Color Urine Appearance Urine pH Ur Specific [place] Urine Protein Urine Glucose (UA) Urine Ketones Urine Blood Urine Nitrite Ur Leukocyte Esterase Ur Random Sodium Random Vancomycin Heparin Dep Plt Ab OD Hep-Induced Plt Ab Britt C. difficile Tox B Gene COVID-19 ([facility]) COVID-19 Clin Com Blood Type Antibody Screen Crossmatch 06/13/22 06/13/22 06/13/22 05:08 05:08 05:09 WBC RBC Hgb Hct MCV MCH MCHC RDW Plt Count MPV Immature Gran % (Auto) Neut % (Auto) Lymph % (Auto) [place] % (Auto) Eos % (Auto) Baso % (Auto) Lymph # (Auto) [place] # (Auto) Eos # (Auto) Baso # (Auto) Abs Immat Gran (auto) Absolute Neuts (auto) Absolute Nucleated RBC Nucleated RBC % (auto) Neutrophils % (Manual) Band Neutrophils % Lymphocytes % (Manual) Atypical Lymphs % (Man) Monocytes % (Manual) Eosinophils % (Manual) Basophils % (Manual) Metamyelocytes % Myelocytes % Promyelocytes % Abs Neuts (Manual) Lymphocytes # (Manual) Atyp Lymphs # (Manual) Monocytes # (Manual) Eosinophils # (Manual) Basophils # (Manual) Metamyelocytes # Myelocytes # Promyelocytes # Nucleated RBCs Smudge Cells Toxic Granulation Toxic Vacuolation Dohle Bodies Platelet Estimate Large Platelets Plt Morphology Comment RBC Morphology Polychromasia Hypochromasia Microcytosis Macrocytosis Spherocytes Ovalocytes Stomatocytes Susan Cells Smear Tech's Comments ESR PT INR aPTT Heparin Protocol Hep-Ind Thrombocytop Com O2 Saturation ABG pH at Pt Temp ABG pCO2 at Pt Temp ABG pO2 at Pt Temp ABG HCO3 ABG Base Excess (Actual) VBG pH 7.50 H VBG pCO2 42 VBG pO2 44 VBG HCO3 33 H VBG O2 Saturation 71.0 VBG Base Excess 9.6 Sodium 142 Potassium 3.8 D Chloride 97 Carbon Dioxide 31 H Anion Gap 18 BUN 16 Creatinine 0.68 Estim Creat Clear Calc 100.3 Estimated GFR > 60 POC Glucose Random Glucose 175 H Estimat Average Glucose Hemoglobin A1c % Lactic Acid Lactic Acid F/U @ 2Hr Lactic Acid F/U @ 4Hr Calcium 8.1 L Phosphorus 2.5 L Magnesium 1.9 Total Bilirubin Direct Bilirubin AST ALT Alkaline Phosphatase C-Reactive Protein B-Natriuretic Peptide Total Protein Albumin 3.3 L Triglycerides Lipase Procalcitonin 1.11 Urine Color Urine Appearance Urine pH Ur Specific [place] Urine Protein Urine Glucose (UA) Urine Ketones Urine Blood Urine Nitrite Ur Leukocyte Esterase Ur Random Sodium Random Vancomycin Heparin Dep Plt Ab OD Hep-Induced Plt Ab Britt C. difficile Tox B Gene COVID-19 ([facility]) COVID-19 Clin Com Blood Type Antibody Screen Crossmatch 06/13/22 06/13/22 06/13/22 05:10 11:51 12:07 WBC 17.4 H RBC 2.96 L Hgb 8.6 L Hct 27.5 L MCV 92.9 MCH 29.1 MCHC 31.3 RDW 16.5 H Plt Count 494 H MPV 10.2 Immature Gran % (Auto) Neut % (Auto) Lymph % (Auto) [place] % (Auto) Eos % (Auto) Baso % (Auto) Lymph # (Auto) [place] # (Auto) Eos # (Auto) Baso # (Auto) Abs Immat Gran (auto) Absolute Neuts (auto) Absolute Nucleated RBC 0.000 Nucleated RBC % (auto) 0.0 Neutrophils % (Manual) Band Neutrophils % Lymphocytes % (Manual) Atypical Lymphs % (Man) Monocytes % (Manual) Eosinophils % (Manual) Basophils % (Manual) Metamyelocytes % Myelocytes % Promyelocytes % Abs Neuts (Manual) Lymphocytes # (Manual) Atyp Lymphs # (Manual) Monocytes # (Manual) Eosinophils # (Manual) Basophils # (Manual) Metamyelocytes # Myelocytes # Promyelocytes # Nucleated RBCs Smudge Cells Toxic Granulation Toxic Vacuolation Dohle Bodies Platelet Estimate Large Platelets Plt Morphology Comment RBC Morphology Polychromasia Hypochromasia Microcytosis Macrocytosis Spherocytes Ovalocytes Stomatocytes Susan Cells Smear Tech's Comments ESR PT INR aPTT Heparin Protocol Hep-Ind Thrombocytop Com O2 Saturation ABG pH at Pt Temp ABG pCO2 at Pt Temp ABG pO2 at Pt Temp ABG HCO3 ABG Base Excess (Actual) VBG pH VBG pCO2 VBG pO2 VBG HCO3 VBG O2 Saturation VBG Base Excess Sodium Potassium Chloride Carbon Dioxide Anion Gap BUN Creatinine Estim Creat Clear Calc Estimated GFR POC Glucose 156 H 173 H Random Glucose Estimat Average Glucose Hemoglobin A1c % Lactic Acid Lactic Acid F/U @ 2Hr Lactic Acid F/U @ 4Hr Calcium Phosphorus Magnesium Total Bilirubin Direct Bilirubin AST ALT Alkaline Phosphatase C-Reactive Protein B-Natriuretic Peptide Total Protein Albumin Triglycerides Lipase Procalcitonin Urine Color Urine Appearance Urine pH Ur Specific [place] Urine Protein Urine Glucose (UA) Urine Ketones Urine Blood Urine Nitrite Ur Leukocyte Esterase Ur Random Sodium Random Vancomycin Heparin Dep Plt Ab OD Hep-Induced Plt Ab Britt C. difficile Tox B Gene COVID-19 ([facility]) COVID-19 Clin Com Blood Type Antibody Screen Crossmatch 06/13/22 06/13/22 06/13/22 12:07 13:47 13:53 WBC RBC Hgb Hct MCV MCH MCHC RDW Plt Count MPV Immature Gran % (Auto) Neut % (Auto) Lymph % (Auto) [place] % (Auto) Eos % (Auto) Baso % (Auto) Lymph # (Auto) [place] # (Auto) Eos # (Auto) Baso # (Auto) Abs Immat Gran (auto) Absolute Neuts (auto) Absolute Nucleated RBC Nucleated RBC % (auto) Neutrophils % (Manual) Band Neutrophils % Lymphocytes % (Manual) Atypical Lymphs % (Man) Monocytes % (Manual) Eosinophils % (Manual) Basophils % (Manual) Metamyelocytes % Myelocytes % Promyelocytes % Abs Neuts (Manual) Lymphocytes # (Manual) Atyp Lymphs # (Manual) Monocytes # (Manual) Eosinophils # (Manual) Basophils # (Manual) Metamyelocytes # Myelocytes # Promyelocytes # Nucleated RBCs Smudge Cells Toxic Granulation Toxic Vacuolation Dohle Bodies Platelet Estimate Large Platelets Plt Morphology Comment RBC Morphology Polychromasia Hypochromasia Microcytosis Macrocytosis Spherocytes Ovalocytes Stomatocytes Susan Cells Smear Tech's Comments ESR PT 16.7 H INR 1.4 H aPTT Heparin Protocol 31.7 L Hep-Ind Thrombocytop Com O2 Saturation ABG pH at Pt Temp ABG pCO2 at Pt Temp ABG pO2 at Pt Temp ABG HCO3 ABG Base Excess (Actual) VBG pH 7.44 H VBG pCO2 55 VBG pO2 57 VBG HCO3 37 H VBG O2 Saturation 86.0 VBG Base Excess 11.8 Sodium Potassium Chloride Carbon Dioxide Anion Gap BUN Creatinine Estim Creat Clear Calc Estimated GFR POC Glucose Random Glucose Estimat Average Glucose Hemoglobin A1c % Lactic Acid 1.2 Lactic Acid F/U @ 2Hr Lactic Acid F/U @ 4Hr Calcium Phosphorus Magnesium Total Bilirubin Direct Bilirubin AST ALT Alkaline Phosphatase C-Reactive Protein B-Natriuretic Peptide Total Protein Albumin Triglycerides Lipase Procalcitonin Urine Color Urine Appearance Urine pH Ur Specific [place] Urine Protein Urine Glucose (UA) Urine Ketones Urine Blood Urine Nitrite Ur Leukocyte Esterase Ur Random Sodium Random Vancomycin Heparin Dep Plt Ab OD Hep-Induced Plt Ab Britt C. difficile Tox B Gene COVID-19 ([facility]) COVID-19 Clin Com Blood Type Antibody Screen Crossmatch 06/13/22 06/13/22 06/14/22 17:47 18:08 00:10 WBC RBC Hgb Hct MCV MCH MCHC RDW Plt Count MPV Immature Gran % (Auto) Neut % (Auto) Lymph % (Auto) [place] % (Auto) Eos % (Auto) Baso % (Auto) Lymph # (Auto) [place] # (Auto) Eos # (Auto) Baso # (Auto) Abs Immat Gran (auto) Absolute Neuts (auto) Absolute Nucleated RBC Nucleated RBC % (auto) Neutrophils % (Manual) Band Neutrophils % Lymphocytes % (Manual) Atypical Lymphs % (Man) Monocytes % (Manual) Eosinophils % (Manual) Basophils % (Manual) Metamyelocytes % Myelocytes % Promyelocytes % Abs Neuts (Manual) Lymphocytes # (Manual) Atyp Lymphs # (Manual) Monocytes # (Manual) Eosinophils # (Manual) Basophils # (Manual) Metamyelocytes # Myelocytes # Promyelocytes # Nucleated RBCs Smudge Cells Toxic Granulation Toxic Vacuolation Dohle Bodies Platelet Estimate Large Platelets Plt Morphology Comment RBC Morphology Polychromasia Hypochromasia Microcytosis Macrocytosis Spherocytes Ovalocytes Stomatocytes Susan Cells Smear Tech's Comments ESR PT INR aPTT Heparin Protocol 45.1 L D Hep-Ind Thrombocytop Com O2 Saturation ABG pH at Pt Temp ABG pCO2 at Pt Temp ABG pO2 at Pt Temp ABG HCO3 ABG Base Excess (Actual) VBG pH VBG pCO2 VBG pO2 VBG HCO3 VBG O2 Saturation VBG Base Excess Sodium Potassium Chloride Carbon Dioxide Anion Gap BUN Creatinine Estim Creat Clear Calc Estimated GFR POC Glucose 129 H 135 H Random Glucose Estimat Average Glucose Hemoglobin A1c % Lactic Acid Lactic Acid F/U @ 2Hr Lactic Acid F/U @ 4Hr Calcium Phosphorus Magnesium Total Bilirubin Direct Bilirubin AST ALT Alkaline Phosphatase C-Reactive Protein B-Natriuretic Peptide Total Protein Albumin Triglycerides Lipase Procalcitonin Urine Color Urine Appearance Urine pH Ur Specific [place] Urine Protein Urine Glucose (UA) Urine Ketones Urine Blood Urine Nitrite Ur Leukocyte Esterase Ur Random Sodium Random Vancomycin Heparin Dep Plt Ab OD Hep-Induced Plt Ab Britt C. difficile Tox B Gene COVID-19 ([facility]) COVID-19 Clin Com Blood Type Antibody Screen Crossmatch 06/14/22 06/14/22 06/14/22 01:05 05:05 05:05 WBC 14.2 H RBC 2.79 L Hgb 8.3 L Hct 25.8 L MCV 92.5 MCH 29.7 MCHC 32.2 RDW 16.3 H Plt Count 482 H MPV 10.6 Immature Gran % (Auto) Neut % (Auto) Lymph % (Auto) [place] % (Auto) Eos % (Auto) Baso % (Auto) Lymph # (Auto) [place] # (Auto) Eos # (Auto) Baso # (Auto) Abs Immat Gran (auto) Absolute Neuts (auto) Absolute Nucleated RBC 0.000 Nucleated RBC % (auto) 0.0 Neutrophils % (Manual) Band Neutrophils % Lymphocytes % (Manual) Atypical Lymphs % (Man) Monocytes % (Manual) Eosinophils % (Manual) Basophils % (Manual) Metamyelocytes % Myelocytes % Promyelocytes % Abs Neuts (Manual) Lymphocytes # (Manual) Atyp Lymphs # (Manual) Monocytes # (Manual) Eosinophils # (Manual) Basophils # (Manual) Metamyelocytes # Myelocytes # Promyelocytes # Nucleated RBCs Smudge Cells Toxic Granulation Toxic Vacuolation Dohle Bodies Platelet Estimate Large Platelets Plt Morphology Comment RBC Morphology Polychromasia Hypochromasia Microcytosis Macrocytosis Spherocytes Ovalocytes Stomatocytes Susan Cells Smear Tech's Comments ESR PT INR aPTT Heparin Protocol 56.9 D Hep-Ind Thrombocytop Com O2 Saturation ABG pH at Pt Temp ABG pCO2 at Pt Temp ABG pO2 at Pt Temp ABG HCO3 ABG Base Excess (Actual) VBG pH VBG pCO2 VBG pO2 VBG HCO3 VBG O2 Saturation VBG Base Excess Sodium 144 Potassium 3.0 L D Chloride 103 Carbon Dioxide 31 H Anion Gap 13 BUN 18 H Creatinine 0.62 Estim Creat Clear Calc 108.5 Estimated GFR > 60 POC Glucose Random Glucose 110 Estimat Average Glucose Hemoglobin A1c % Lactic Acid Lactic Acid F/U @ 2Hr Lactic Acid F/U @ 4Hr Calcium 8.1 L Phosphorus 2.9 Magnesium 1.9 Total Bilirubin Direct Bilirubin AST ALT Alkaline Phosphatase C-Reactive Protein B-Natriuretic Peptide Total Protein Albumin Triglycerides Lipase Procalcitonin Urine Color Urine Appearance Urine pH Ur Specific [place] Urine Protein Urine Glucose (UA) Urine Ketones Urine Blood Urine Nitrite Ur Leukocyte Esterase Ur Random Sodium Random Vancomycin Heparin Dep Plt Ab OD Hep-Induced Plt Ab Britt C. difficile Tox B Gene COVID-19 ([facility]) COVID-19 Clin Com Blood Type Antibody Screen Crossmatch 06/14/22 06/14/22 06/14/22 05:08 12:45 17:41 WBC RBC Hgb Hct MCV MCH MCHC RDW Plt Count MPV Immature Gran % (Auto) Neut % (Auto) Lymph % (Auto) [place] % (Auto) Eos % (Auto) Baso % (Auto) Lymph # (Auto) [place] # (Auto) Eos # (Auto) Baso # (Auto) Abs Immat Gran (auto) Absolute Neuts (auto) Absolute Nucleated RBC Nucleated RBC % (auto) Neutrophils % (Manual) Band Neutrophils % Lymphocytes % (Manual) Atypical Lymphs % (Man) Monocytes % (Manual) Eosinophils % (Manual) Basophils % (Manual) Metamyelocytes % Myelocytes % Promyelocytes % Abs Neuts (Manual) Lymphocytes # (Manual) Atyp Lymphs # (Manual) Monocytes # (Manual) Eosinophils # (Manual) Basophils # (Manual) Metamyelocytes # Myelocytes # Promyelocytes # Nucleated RBCs Smudge Cells Toxic Granulation Toxic Vacuolation Dohle Bodies Platelet Estimate Large Platelets Plt Morphology Comment RBC Morphology Polychromasia Hypochromasia Microcytosis Macrocytosis Spherocytes Ovalocytes Stomatocytes Susan Cells Smear Tech's Comments ESR PT INR aPTT Heparin Protocol Hep-Ind Thrombocytop Com O2 Saturation ABG pH at Pt Temp ABG pCO2 at Pt Temp ABG pO2 at Pt Temp ABG HCO3 ABG Base Excess (Actual) VBG pH 7.49 H VBG pCO2 36 VBG pO2 53 VBG HCO3 28 H VBG O2 Saturation 83.0 VBG Base Excess 4.9 Sodium Potassium Chloride Carbon Dioxide Anion Gap BUN Creatinine Estim Creat Clear Calc Estimated GFR POC Glucose 123 H 126 H Random Glucose Estimat Average Glucose Hemoglobin A1c % Lactic Acid Lactic Acid F/U @ 2Hr Lactic Acid F/U @ 4Hr Calcium Phosphorus Magnesium Total Bilirubin Direct Bilirubin AST ALT Alkaline Phosphatase C-Reactive Protein B-Natriuretic Peptide Total Protein Albumin Triglycerides Lipase Procalcitonin Urine Color Urine Appearance Urine pH Ur Specific [place] Urine Protein Urine Glucose (UA) Urine Ketones Urine Blood Urine Nitrite Ur Leukocyte Esterase Ur Random Sodium Random Vancomycin Heparin Dep Plt Ab OD Hep-Induced Plt Ab Britt C. difficile Tox B Gene COVID-19 ([facility]) COVID-19 Clin Com Blood Type Antibody Screen Crossmatch 06/14/22 06/15/22 06/15/22 23:52 05:04 05:13 WBC 15.4 H RBC 2.97 L Hgb 8.6 L Hct 26.5 L MCV 89.2 MCH 29.0 MCHC 32.5 RDW 16.5 H Plt Count 436 H MPV 10.2 Immature Gran % (Auto) Neut % (Auto) Lymph % (Auto) [place] % (Auto) Eos % (Auto) Baso % (Auto) Lymph # (Auto) [place] # (Auto) Eos # (Auto) Baso # (Auto) Abs Immat Gran (auto) Absolute Neuts (auto) Absolute Nucleated RBC 0.000 Nucleated RBC % (auto) 0.0 Neutrophils % (Manual) Band Neutrophils % Lymphocytes % (Manual) Atypical Lymphs % (Man) Monocytes % (Manual) Eosinophils % (Manual) Basophils % (Manual) Metamyelocytes % Myelocytes % Promyelocytes % Abs Neuts (Manual) Lymphocytes # (Manual) Atyp Lymphs # (Manual) Monocytes # (Manual) Eosinophils # (Manual) Basophils # (Manual) Metamyelocytes # Myelocytes # Promyelocytes # Nucleated RBCs Smudge Cells Toxic Granulation Toxic Vacuolation Dohle Bodies Platelet Estimate Large Platelets Plt Morphology Comment RBC Morphology Polychromasia Hypochromasia Microcytosis Macrocytosis Spherocytes Ovalocytes Stomatocytes Susan Cells Smear Tech's Comments ESR PT INR aPTT Heparin Protocol Hep-Ind Thrombocytop Com O2 Saturation ABG pH at Pt Temp ABG pCO2 at Pt Temp ABG pO2 at Pt Temp ABG HCO3 ABG Base Excess (Actual) VBG pH VBG pCO2 VBG pO2 VBG HCO3 VBG O2 Saturation VBG Base Excess Sodium Potassium Chloride Carbon Dioxide Anion Gap BUN Creatinine Estim Creat Clear Calc Estimated GFR POC Glucose 96 116 H Random Glucose Estimat Average Glucose Hemoglobin A1c % Lactic Acid Lactic Acid F/U @ 2Hr Lactic Acid F/U @ 4Hr Calcium Phosphorus Magnesium Total Bilirubin Direct Bilirubin AST ALT Alkaline Phosphatase C-Reactive Protein B-Natriuretic Peptide Total Protein Albumin Triglycerides Lipase Procalcitonin Urine Color Urine Appearance Urine pH Ur Specific [place] Urine Protein Urine Glucose (UA) Urine Ketones Urine Blood Urine Nitrite Ur Leukocyte Esterase Ur Random Sodium Random Vancomycin Heparin Dep Plt Ab OD Hep-Induced Plt Ab Britt C. difficile Tox B Gene COVID-19 ([facility]) COVID-19 Clin Com Blood Type Antibody Screen Crossmatch 06/15/22 06/15/22 06/15/22 05:13 05:13 12:16 WBC RBC Hgb Hct MCV MCH MCHC RDW Plt Count MPV Immature Gran % (Auto) Neut % (Auto) Lymph % (Auto) [place] % (Auto) Eos % (Auto) Baso % (Auto) Lymph # (Auto) [place] # (Auto) Eos # (Auto) Baso # (Auto) Abs Immat Gran (auto) Absolute Neuts (auto) Absolute Nucleated RBC Nucleated RBC % (auto) Neutrophils % (Manual) Band Neutrophils % Lymphocytes % (Manual) Atypical Lymphs % (Man) Monocytes % (Manual) Eosinophils % (Manual) Basophils % (Manual) Metamyelocytes % Myelocytes % Promyelocytes % Abs Neuts (Manual) Lymphocytes # (Manual) Atyp Lymphs # (Manual) Monocytes # (Manual) Eosinophils # (Manual) Basophils # (Manual) Metamyelocytes # Myelocytes # Promyelocytes # Nucleated RBCs Smudge Cells Toxic Granulation Toxic Vacuolation Dohle Bodies Platelet Estimate Large Platelets Plt Morphology Comment RBC Morphology Polychromasia Hypochromasia Microcytosis Macrocytosis Spherocytes Ovalocytes Stomatocytes Amonate Cells Smear Tech's Comments ESR PT INR aPTT Heparin Protocol Hep-Ind Thrombocytop Com O2 Saturation ABG pH at Pt Temp ABG pCO2 at Pt Temp ABG pO2 at Pt Temp ABG HCO3 ABG Base Excess (Actual) VBG pH 7.51 H VBG pCO2 33 VBG pO2 48 VBG HCO3 27 H VBG O2 Saturation 74.0 VBG Base Excess 4.2 Sodium 141 Potassium 2.6 L Chloride 98 Carbon Dioxide 31 H Anion Gap 15 BUN 20 H Creatinine 0.67 Estim Creat Clear Calc 97.8 Estimated GFR > 60 POC Glucose 136 H Random Glucose 121 H Estimat Average Glucose Hemoglobin A1c % Lactic Acid Lactic Acid F/U @ 2Hr Lactic Acid F/U @ 4Hr Calcium 8.4 Phosphorus 3.8 Magnesium 1.9 Total Bilirubin Direct Bilirubin AST ALT Alkaline Phosphatase C-Reactive Protein B-Natriuretic Peptide Total Protein Albumin 3.4 L Triglycerides Lipase Procalcitonin Urine Color Urine Appearance Urine pH Ur Specific [place] Urine Protein Urine Glucose (UA) Urine Ketones Urine Blood Urine Nitrite Ur Leukocyte Esterase Ur Random Sodium Random Vancomycin Heparin Dep Plt Ab OD Hep-Induced Plt Ab Britt C. difficile Tox B Gene COVID-19 ([facility]) COVID-19 Clin Com Blood Type Antibody Screen Crossmatch 06/15/22 06/15/22 06/16/22 18:25 23:31 05:21 WBC RBC Hgb Hct MCV MCH MCHC RDW Plt Count MPV Immature Gran % (Auto) Neut % (Auto) Lymph % (Auto) [place] % (Auto) Eos % (Auto) Baso % (Auto) Lymph # (Auto) [place] # (Auto) Eos # (Auto) Baso # (Auto) Abs Immat Gran (auto) Absolute Neuts (auto) Absolute Nucleated RBC Nucleated RBC % (auto) Neutrophils % (Manual) Band Neutrophils % Lymphocytes % (Manual) Atypical Lymphs % (Man) Monocytes % (Manual) Eosinophils % (Manual) Basophils % (Manual) Metamyelocytes % Myelocytes % Promyelocytes % Abs Neuts (Manual) Lymphocytes # (Manual) Atyp Lymphs # (Manual) Monocytes # (Manual) Eosinophils # (Manual) Basophils # (Manual) Metamyelocytes # Myelocytes # Promyelocytes # Nucleated RBCs Smudge Cells Toxic Granulation Toxic Vacuolation Dohle Bodies Platelet Estimate Large Platelets Plt Morphology Comment RBC Morphology Polychromasia Hypochromasia Microcytosis Macrocytosis Spherocytes Ovalocytes Stomatocytes Amonate Cells Smear Tech's Comments ESR PT INR aPTT Heparin Protocol Hep-Ind Thrombocytop Com O2 Saturation ABG pH at Pt Temp ABG pCO2 at Pt Temp ABG pO2 at Pt Temp ABG HCO3 ABG Base Excess (Actual) VBG pH VBG pCO2 VBG pO2 VBG HCO3 VBG O2 Saturation VBG Base Excess Sodium Potassium Chloride Carbon Dioxide Anion Gap BUN Creatinine Estim Creat Clear Calc Estimated GFR POC Glucose 122 H 105 130 H Random Glucose Estimat Average Glucose Hemoglobin A1c % Lactic Acid Lactic Acid F/U @ 2Hr Lactic Acid F/U @ 4Hr Calcium Phosphorus Magnesium Total Bilirubin Direct Bilirubin AST ALT Alkaline Phosphatase C-Reactive Protein B-Natriuretic Peptide Total Protein Albumin Triglycerides Lipase Procalcitonin Urine Color Urine Appearance Urine pH Ur Specific [place] Urine Protein Urine Glucose (UA) Urine Ketones Urine Blood Urine Nitrite Ur Leukocyte Esterase Ur Random Sodium Random Vancomycin Heparin Dep Plt Ab OD Hep-Induced Plt Ab Britt C. difficile Tox B Gene COVID-19 ([facility]ER) COVID-19 Clin Com Blood Type Antibody Screen Crossmatch 06/16/22 06/16/22 06/16/22 05:35 05:35 05:36 WBC 16.5 H RBC 3.01 L Hgb 8.9 L Hct 27.3 L MCV 90.7 MCH 29.6 MCHC 32.6 RDW 16.6 H Plt Count 432 H MPV 10.9 Immature Gran % (Auto) Neut % (Auto) Lymph % (Auto) [place] % (Auto) Eos % (Auto) Baso % (Auto) Lymph # (Auto) [place] # (Auto) Eos # (Auto) Baso # (Auto) Abs Immat Gran (auto) Absolute Neuts (auto) Absolute Nucleated RBC 0.000 Nucleated RBC % (auto) 0.0 Neutrophils % (Manual) Band Neutrophils % Lymphocytes % (Manual) Atypical Lymphs % (Man) Monocytes % (Manual) Eosinophils % (Manual) Basophils % (Manual) Metamyelocytes % Myelocytes % Promyelocytes % Abs Neuts (Manual) Lymphocytes # (Manual) Atyp Lymphs # (Manual) Monocytes # (Manual) Eosinophils # (Manual) Basophils # (Manual) Metamyelocytes # Myelocytes # Promyelocytes # Nucleated RBCs Smudge Cells Toxic Granulation Toxic Vacuolation Dohle Bodies Platelet Estimate Large Platelets Plt Morphology Comment RBC Morphology Polychromasia Hypochromasia Microcytosis Macrocytosis Spherocytes Ovalocytes Stomatocytes Susan Cells Smear Tech's Comments ESR PT INR aPTT Heparin Protocol Hep-Ind Thrombocytop Com O2 Saturation ABG pH at Pt Temp ABG pCO2 at Pt Temp ABG pO2 at Pt Temp ABG HCO3 ABG Base Excess (Actual) VBG pH 7.53 H VBG pCO2 29 VBG pO2 51 VBG HCO3 24 VBG O2 Saturation 79.0 VBG Base Excess 2.7 Sodium 142 Potassium 3.0 L Chloride 100 Carbon Dioxide 28 Anion Gap 17 BUN 22 H Creatinine 0.67 Estim Creat Clear Calc 97.9 Estimated GFR > 60 POC Glucose Random Glucose 126 H Estimat Average Glucose Hemoglobin A1c % Lactic Acid Lactic Acid F/U @ 2Hr Lactic Acid F/U @ 4Hr Calcium 8.5 Phosphorus 3.9 Magnesium 2.1 Total Bilirubin Direct Bilirubin AST ALT Alkaline Phosphatase C-Reactive Protein B-Natriuretic Peptide Total Protein Albumin 3.4 L Triglycerides Lipase Procalcitonin Urine Color Urine Appearance Urine pH Ur Specific [place] Urine Protein Urine Glucose (UA) Urine Ketones Urine Blood Urine Nitrite Ur Leukocyte Esterase Ur Random Sodium Random Vancomycin Heparin Dep Plt Ab OD Hep-Induced Plt Ab Britt C. difficile Tox B Gene COVID-19 ([facility]LER) COVID-19 Clin Com Blood Type Antibody Screen Crossmatch 06/16/22 06/16/22 06/16/22 12:10 17:51 23:50 WBC RBC Hgb Hct MCV MCH MCHC RDW Plt Count MPV Immature Gran % (Auto) Neut % (Auto) Lymph % (Auto) [place] % (Auto) Eos % (Auto) Baso % (Auto) Lymph # (Auto) [place] # (Auto) Eos # (Auto) Baso # (Auto) Abs Immat Gran (auto) Absolute Neuts (auto) Absolute Nucleated RBC Nucleated RBC % (auto) Neutrophils % (Manual) Band Neutrophils % Lymphocytes % (Manual) Atypical Lymphs % (Man) Monocytes % (Manual) Eosinophils % (Manual) Basophils % (Manual) Metamyelocytes % Myelocytes % Promyelocytes % Abs Neuts (Manual) Lymphocytes # (Manual) Atyp Lymphs # (Manual) Monocytes # (Manual) Eosinophils # (Manual) Basophils # (Manual) Metamyelocytes # Myelocytes # Promyelocytes # Nucleated RBCs Smudge Cells Toxic Granulation Toxic Vacuolation Dohle Bodies Platelet Estimate Large Platelets Plt Morphology Comment RBC Morphology Polychromasia Hypochromasia Microcytosis Macrocytosis Spherocytes Ovalocytes Stomatocytes Susan Cells Smear Tech's Comments ESR PT INR aPTT Heparin Protocol Hep-Ind Thrombocytop Com O2 Saturation ABG pH at Pt Temp ABG pCO2 at Pt Temp ABG pO2 at Pt Temp ABG HCO3 ABG Base Excess (Actual) VBG pH VBG pCO2 VBG pO2 VBG HCO3 VBG O2 Saturation VBG Base Excess Sodium Potassium Chloride Carbon Dioxide Anion Gap BUN Creatinine Estim Creat Clear Calc Estimated GFR POC Glucose 172 H 156 H 116 H Random Glucose Estimat Average Glucose Hemoglobin A1c % Lactic Acid Lactic Acid F/U @ 2Hr Lactic Acid F/U @ 4Hr Calcium Phosphorus Magnesium Total Bilirubin Direct Bilirubin AST ALT Alkaline Phosphatase C-Reactive Protein B-Natriuretic Peptide Total Protein Albumin Triglycerides Lipase Procalcitonin Urine Color Urine Appearance Urine pH Ur Specific [place] Urine Protein Urine Glucose (UA) Urine Ketones Urine Blood Urine Nitrite Ur Leukocyte Esterase Ur Random Sodium Random Vancomycin Heparin Dep Plt Ab OD Hep-Induced Plt Ab Britt C. difficile Tox B Gene COVID-19 ([facility]) COVID-19 Clin Com Blood Type Antibody Screen Crossmatch 06/17/22 06/17/22 06/17/22 05:20 05:21 05:26 WBC 16.0 H RBC 3.04 L Hgb 8.8 L Hct 27.2 L MCV 89.5 MCH 28.9 MCHC 32.4 RDW 16.8 H Plt Count 364 MPV 10.2 Immature Gran % (Auto) Neut % (Auto) Lymph % (Auto) [place] % (Auto) Eos % (Auto) Baso % (Auto) Lymph # (Auto) [place] # (Auto) Eos # (Auto) Baso # (Auto) Abs Immat Gran (auto) Absolute Neuts (auto) Absolute Nucleated RBC 0.020 H Nucleated RBC % (auto) 0.1 Neutrophils % (Manual) Band Neutrophils % Lymphocytes % (Manual) Atypical Lymphs % (Man) Monocytes % (Manual) Eosinophils % (Manual) Basophils % (Manual) Metamyelocytes % Myelocytes % Promyelocytes % Abs Neuts (Manual) Lymphocytes # (Manual) Atyp Lymphs # (Manual) Monocytes # (Manual) Eosinophils # (Manual) Basophils # (Manual) Metamyelocytes # Myelocytes # Promyelocytes # Nucleated RBCs Smudge Cells Toxic Granulation Toxic Vacuolation Dohle Bodies Platelet Estimate Large Platelets Plt Morphology Comment RBC Morphology Polychromasia Hypochromasia Microcytosis Macrocytosis Spherocytes Ovalocytes Stomatocytes Susan Cells Smear Tech's Comments ESR PT INR aPTT Heparin Protocol Hep-Ind Thrombocytop Com O2 Saturation ABG pH at Pt Temp ABG pCO2 at Pt Temp ABG pO2 at Pt Temp ABG HCO3 ABG Base Excess (Actual) VBG pH 7.55 H VBG pCO2 27 VBG pO2 43 VBG HCO3 24 VBG O2 Saturation 69.0 VBG Base Excess 2.9 Sodium 143 Potassium 3.0 L Chloride 103 Carbon Dioxide 26 Anion Gap 17 BUN 25 H Creatinine 0.67 Estim Creat Clear Calc 97.9 Estimated GFR > 60 POC Glucose Random Glucose 146 H Estimat Average Glucose Hemoglobin A1c % Lactic Acid Lactic Acid F/U @ 2Hr Lactic Acid F/U @ 4Hr Calcium 8.5 Phosphorus 4.0 Magnesium 1.9 Total Bilirubin Direct Bilirubin AST ALT Alkaline Phosphatase C-Reactive Protein B-Natriuretic Peptide Total Protein Albumin Triglycerides Lipase Procalcitonin Urine Color Urine Appearance Urine pH Ur Specific [place] Urine Protein Urine Glucose (UA) Urine Ketones Urine Blood Urine Nitrite Ur Leukocyte Esterase Ur Random Sodium Random Vancomycin Heparin Dep Plt Ab OD Hep-Induced Plt Ab Britt C. difficile Tox B Gene COVID-19 ([facility]) COVID-19 Clin Com Blood Type Antibody Screen Crossmatch 06/17/22 06/17/22 06/17/22 11:59 18:09 23:39 WBC RBC Hgb Hct MCV MCH MCHC RDW Plt Count MPV Immature Gran % (Auto) Neut % (Auto) Lymph % (Auto) [place] % (Auto) Eos % (Auto) Baso % (Auto) Lymph # (Auto) [place] # (Auto) Eos # (Auto) Baso # (Auto) Abs Immat Gran (auto) Absolute Neuts (auto) Absolute Nucleated RBC Nucleated RBC % (auto) Neutrophils % (Manual) Band Neutrophils % Lymphocytes % (Manual) Atypical Lymphs % (Man) Monocytes % (Manual) Eosinophils % (Manual) Basophils % (Manual) Metamyelocytes % Myelocytes % Promyelocytes % Abs Neuts (Manual) Lymphocytes # (Manual) Atyp Lymphs # (Manual) Monocytes # (Manual) Eosinophils # (Manual) Basophils # (Manual) Metamyelocytes # Myelocytes # Promyelocytes # Nucleated RBCs Smudge Cells Toxic Granulation Toxic Vacuolation Dohle Bodies Platelet Estimate Large Platelets Plt Morphology Comment RBC Morphology Polychromasia Hypochromasia Microcytosis Macrocytosis Spherocytes Ovalocytes Stomatocytes Amonate Cells Smear Tech's Comments ESR PT INR aPTT Heparin Protocol Hep-Ind Thrombocytop Com O2 Saturation ABG pH at Pt Temp ABG pCO2 at Pt Temp ABG pO2 at Pt Temp ABG HCO3 ABG Base Excess (Actual) VBG pH VBG pCO2 VBG pO2 VBG HCO3 VBG O2 Saturation VBG Base Excess Sodium Potassium Chloride Carbon Dioxide Anion Gap BUN Creatinine Estim Creat Clear Calc Estimated GFR POC Glucose 146 H 140 H 128 H Random Glucose Estimat Average Glucose Hemoglobin A1c % Lactic Acid Lactic Acid F/U @ 2Hr Lactic Acid F/U @ 4Hr Calcium Phosphorus Magnesium Total Bilirubin Direct Bilirubin AST ALT Alkaline Phosphatase C-Reactive Protein B-Natriuretic Peptide Total Protein Albumin Triglycerides Lipase Procalcitonin Urine Color Urine Appearance Urine pH Ur Specific [place] Urine Protein Urine Glucose (UA) Urine Ketones Urine Blood Urine Nitrite Ur Leukocyte Esterase Ur Random Sodium Random Vancomycin Heparin Dep Plt Ab OD Hep-Induced Plt Ab Britt C. difficile Tox B Gene COVID-19 ([facility]) COVID-19 Clin Com Blood Type Antibody Screen Crossmatch 06/18/22 06/18/22 06/18/22 05:20 05:35 05:35 WBC 15.5 H RBC 2.97 L Hgb 8.9 L Hct 27.2 L MCV 91.6 MCH 30.0 MCHC 32.7 RDW 17.0 H Plt Count 354 MPV 10.3 Immature Gran % (Auto) Neut % (Auto) Lymph % (Auto) [place] % (Auto) Eos % (Auto) Baso % (Auto) Lymph # (Auto) [place] # (Auto) Eos # (Auto) Baso # (Auto) Abs Immat Gran (auto) Absolute Neuts (auto) Absolute Nucleated RBC 0.000 Nucleated RBC % (auto) 0.0 Neutrophils % (Manual) Band Neutrophils % Lymphocytes % (Manual) Atypical Lymphs % (Man) Monocytes % (Manual) Eosinophils % (Manual) Basophils % (Manual) Metamyelocytes % Myelocytes % Promyelocytes % Abs Neuts (Manual) Lymphocytes # (Manual) Atyp Lymphs # (Manual) Monocytes # (Manual) Eosinophils # (Manual) Basophils # (Manual) Metamyelocytes # Myelocytes # Promyelocytes # Nucleated RBCs Smudge Cells Toxic Granulation Toxic Vacuolation Dohle Bodies Platelet Estimate Large Platelets Plt Morphology Comment RBC Morphology Polychromasia Hypochromasia Microcytosis Macrocytosis Spherocytes Ovalocytes Stomatocytes Susan Cells Smear Tech's Comments ESR PT INR aPTT Heparin Protocol Hep-Ind Thrombocytop Com O2 Saturation ABG pH at Pt Temp ABG pCO2 at Pt Temp ABG pO2 at Pt Temp ABG HCO3 ABG Base Excess (Actual) VBG pH VBG pCO2 VBG pO2 VBG HCO3 VBG O2 Saturation VBG Base Excess Sodium 145 Potassium 3.9 D Chloride 111 H Carbon Dioxide 23 Anion Gap 15 BUN 25 H Creatinine 0.60 Estim Creat Clear Calc 106.5 Estimated GFR > 60 POC Glucose 134 H Random Glucose 152 H Estimat Average Glucose Hemoglobin A1c % Lactic Acid Lactic Acid F/U @ 2Hr Lactic Acid F/U @ 4Hr Calcium 8.9 Phosphorus 3.3 Magnesium 2.2 Total Bilirubin Direct Bilirubin AST ALT Alkaline Phosphatase C-Reactive Protein B-Natriuretic Peptide Total Protein Albumin Triglycerides Lipase Procalcitonin Urine Color Urine Appearance Urine pH Ur Specific [place] Urine Protein Urine Glucose (UA) Urine Ketones Urine Blood Urine Nitrite Ur Leukocyte Esterase Ur Random Sodium Random Vancomycin Heparin Dep Plt Ab OD Hep-Induced Plt Ab Britt C. difficile Tox B Gene COVID-19 ([facility]) COVID-19 Clin Com Blood Type Antibody Screen Crossmatch 06/18/22 06/18/22 06/18/22 05:39 12:02 20:18 WBC RBC Hgb Hct MCV MCH MCHC RDW Plt Count MPV Immature Gran % (Auto) Neut % (Auto) Lymph % (Auto) [place] % (Auto) Eos % (Auto) Baso % (Auto) Lymph # (Auto) [place] # (Auto) Eos # (Auto) Baso # (Auto) Abs Immat Gran (auto) Absolute Neuts (auto) Absolute Nucleated RBC Nucleated RBC % (auto) Neutrophils % (Manual) Band Neutrophils % Lymphocytes % (Manual) Atypical Lymphs % (Man) Monocytes % (Manual) Eosinophils % (Manual) Basophils % (Manual) Metamyelocytes % Myelocytes % Promyelocytes % Abs Neuts (Manual) Lymphocytes # (Manual) Atyp Lymphs # (Manual) Monocytes # (Manual) Eosinophils # (Manual) Basophils # (Manual) Metamyelocytes # Myelocytes # Promyelocytes # Nucleated RBCs Smudge Cells Toxic Granulation Toxic Vacuolation Dohle Bodies Platelet Estimate Large Platelets Plt Morphology Comment RBC Morphology Polychromasia Hypochromasia Microcytosis Macrocytosis Spherocytes Ovalocytes Stomatocytes Susan Cells Smear Tech's Comments ESR PT INR aPTT Heparin Protocol Hep-Ind Thrombocytop Com O2 Saturation ABG pH at Pt Temp ABG pCO2 at Pt Temp ABG pO2 at Pt Temp ABG HCO3 ABG Base Excess (Actual) VBG pH 7.51 H VBG pCO2 23 VBG pO2 40 VBG HCO3 19 L VBG O2 Saturation 64.0 VBG Base Excess -2.5 Sodium Potassium Chloride Carbon Dioxide Anion Gap BUN Creatinine Estim Creat Clear Calc Estimated GFR POC Glucose 140 H 111 Random Glucose Estimat Average Glucose Hemoglobin A1c % Lactic Acid Lactic Acid F/U @ 2Hr Lactic Acid F/U @ 4Hr Calcium Phosphorus Magnesium Total Bilirubin Direct Bilirubin AST ALT Alkaline Phosphatase C-Reactive Protein B-Natriuretic Peptide Total Protein Albumin Triglycerides Lipase Procalcitonin Urine Color Urine Appearance Urine pH Ur Specific [place] Urine Protein Urine Glucose (UA) Urine Ketones Urine Blood Urine Nitrite Ur Leukocyte Esterase Ur Random Sodium Random Vancomycin Heparin Dep Plt Ab OD Hep-Induced Plt Ab Britt C. difficile Tox B Gene COVID-19 ([facility]) COVID-19 Clin Com Blood Type Antibody Screen Crossmatch 06/19/22 06/19/22 06/19/22 06:11 06:11 07:19 WBC 16.9 H RBC 3.10 L Hgb 9.0 L Hct 28.8 L MCV 92.9 MCH 29.0 MCHC 31.3 RDW 16.9 H Plt Count 362 MPV 10.8 Immature Gran % (Auto) Neut % (Auto) Lymph % (Auto) [place] % (Auto) Eos % (Auto) Baso % (Auto) Lymph # (Auto) [place] # (Auto) Eos # (Auto) Baso # (Auto) Abs Immat Gran (auto) Absolute Neuts (auto) Absolute Nucleated RBC 0.000 Nucleated RBC % (auto) 0.0 Neutrophils % (Manual) Band Neutrophils % Lymphocytes % (Manual) Atypical Lymphs % (Man) Monocytes % (Manual) Eosinophils % (Manual) Basophils % (Manual) Metamyelocytes % Myelocytes % Promyelocytes % Abs Neuts (Manual) Lymphocytes # (Manual) Atyp Lymphs # (Manual) Monocytes # (Manual) Eosinophils # (Manual) Basophils # (Manual) Metamyelocytes # Myelocytes # Promyelocytes # Nucleated RBCs Smudge Cells Toxic Granulation Toxic Vacuolation Dohle Bodies Platelet Estimate Large Platelets Plt Morphology Comment RBC Morphology Polychromasia Hypochromasia Microcytosis Macrocytosis Spherocytes Ovalocytes Stomatocytes Susan Cells Smear Tech's Comments ESR PT INR aPTT Heparin Protocol Hep-Ind Thrombocytop Com O2 Saturation ABG pH at Pt Temp ABG pCO2 at Pt Temp ABG pO2 at Pt Temp ABG HCO3 ABG Base Excess (Actual) VBG pH VBG pCO2 VBG pO2 VBG HCO3 VBG O2 Saturation VBG Base Excess Sodium 147 H Potassium 3.8 Chloride 113 H Carbon Dioxide 21 L Anion Gap 17 BUN 24 H Creatinine 0.62 Estim Creat Clear Calc 102.9 Estimated GFR > 60 POC Glucose 96 Random Glucose 102 Estimat Average Glucose Hemoglobin A1c % Lactic Acid Lactic Acid F/U @ 2Hr Lactic Acid F/U @ 4Hr Calcium 9.1 Phosphorus 3.8 Magnesium 2.2 Total Bilirubin 0.6 Direct Bilirubin AST 20 D ALT 9 Alkaline Phosphatase 76 D C-Reactive Protein B-Natriuretic Peptide Total Protein 6.8 Albumin 3.5 Triglycerides Lipase Procalcitonin Urine Color Urine Appearance Urine pH Ur Specific [place] Urine Protein Urine Glucose (UA) Urine Ketones Urine Blood Urine Nitrite Ur Leukocyte Esterase Ur Random Sodium Random Vancomycin Heparin Dep Plt Ab OD Hep-Induced Plt Ab Britt C. difficile Tox B Gene COVID-19 ([facility]) COVID-19 Clin Com Blood Type Antibody Screen Crossmatch 06/19/22 06/19/22 06/19/22 11:24 16:11 19:49 WBC RBC Hgb Hct MCV MCH MCHC RDW Plt Count MPV Immature Gran % (Auto) Neut % (Auto) Lymph % (Auto) [place] % (Auto) Eos % (Auto) Baso % (Auto) Lymph # (Auto) [place] # (Auto) Eos # (Auto) Baso # (Auto) Abs Immat Gran (auto) Absolute Neuts (auto) Absolute Nucleated RBC Nucleated RBC % (auto) Neutrophils % (Manual) Band Neutrophils % Lymphocytes % (Manual) Atypical Lymphs % (Man) Monocytes % (Manual) Eosinophils % (Manual) Basophils % (Manual) Metamyelocytes % Myelocytes % Promyelocytes % Abs Neuts (Manual) Lymphocytes # (Manual) Atyp Lymphs # (Manual) Monocytes # (Manual) Eosinophils # (Manual) Basophils # (Manual) Metamyelocytes # Myelocytes # Promyelocytes # Nucleated RBCs Smudge Cells Toxic Granulation Toxic Vacuolation Dohle Bodies Platelet Estimate Large Platelets Plt Morphology Comment RBC Morphology Polychromasia Hypochromasia Microcytosis Macrocytosis Spherocytes Ovalocytes Stomatocytes Amonate Cells Smear Tech's Comments ESR PT INR aPTT Heparin Protocol Hep-Ind Thrombocytop Com O2 Saturation ABG pH at Pt Temp ABG pCO2 at Pt Temp ABG pO2 at Pt Temp ABG HCO3 ABG Base Excess (Actual) VBG pH VBG pCO2 VBG pO2 VBG HCO3 VBG O2 Saturation VBG Base Excess Sodium Potassium Chloride Carbon Dioxide Anion Gap BUN Creatinine Estim Creat Clear Calc Estimated GFR POC Glucose 130 H 149 H 133 H Random Glucose Estimat Average Glucose Hemoglobin A1c % Lactic Acid Lactic Acid F/U @ 2Hr Lactic Acid F/U @ 4Hr Calcium Phosphorus Magnesium Total Bilirubin Direct Bilirubin AST ALT Alkaline Phosphatase C-Reactive Protein B-Natriuretic Peptide Total Protein Albumin Triglycerides Lipase Procalcitonin Urine Color Urine Appearance Urine pH Ur Specific [place] Urine Protein Urine Glucose (UA) Urine Ketones Urine Blood Urine Nitrite Ur Leukocyte Esterase Ur Random Sodium Random Vancomycin Heparin Dep Plt Ab OD Hep-Induced Plt Ab Britt C. difficile Tox B Gene COVID-19 ([facility]) COVID-19 Clin Com Blood Type Antibody Screen Crossmatch 06/20/22 06/20/22 06/20/22 07:25 10:54 14:13 WBC RBC Hgb Hct MCV MCH MCHC RDW Plt Count MPV Immature Gran % (Auto) Neut % (Auto) Lymph % (Auto) [place] % (Auto) Eos % (Auto) Baso % (Auto) Lymph # (Auto) [place] # (Auto) Eos # (Auto) Baso # (Auto) Abs Immat Gran (auto) Absolute Neuts (auto) Absolute Nucleated RBC Nucleated RBC % (auto) Neutrophils % (Manual) Band Neutrophils % Lymphocytes % (Manual) Atypical Lymphs % (Man) Monocytes % (Manual) Eosinophils % (Manual) Basophils % (Manual) Metamyelocytes % Myelocytes % Promyelocytes % Abs Neuts (Manual) Lymphocytes # (Manual) Atyp Lymphs # (Manual) Monocytes # (Manual) Eosinophils # (Manual) Basophils # (Manual) Metamyelocytes # Myelocytes # Promyelocytes # Nucleated RBCs Smudge Cells Toxic Granulation Toxic Vacuolation Dohle Bodies Platelet Estimate Large Platelets Plt Morphology Comment RBC Morphology Polychromasia Hypochromasia Microcytosis Macrocytosis Spherocytes Ovalocytes Stomatocytes Susan Cells Smear Tech's Comments ESR PT INR aPTT Heparin Protocol Hep-Ind Thrombocytop Com O2 Saturation ABG pH at Pt Temp ABG pCO2 at Pt Temp ABG pO2 at Pt Temp ABG HCO3 ABG Base Excess (Actual) VBG pH VBG pCO2 VBG pO2 VBG HCO3 VBG O2 Saturation VBG Base Excess Sodium 137 Potassium 3.8 Chloride 105 Carbon Dioxide 22 Anion Gap 14 BUN 24 H Creatinine 0.60 Estim Creat Clear Calc 106.7 Estimated GFR > 60 POC Glucose 100 128 H Random Glucose 109 Estimat Average Glucose Hemoglobin A1c % Lactic Acid Lactic Acid F/U @ 2Hr Lactic Acid F/U @ 4Hr Calcium 8.7 Phosphorus Magnesium Total Bilirubin Direct Bilirubin AST ALT Alkaline Phosphatase C-Reactive Protein B-Natriuretic Peptide Total Protein Albumin Triglycerides Lipase Procalcitonin Urine Color Urine Appearance Urine pH Ur Specific [place] Urine Protein Urine Glucose (UA) Urine Ketones Urine Blood Urine Nitrite Ur Leukocyte Esterase Ur Random Sodium Random Vancomycin Heparin Dep Plt Ab OD Hep-Induced Plt Ab Britt C. difficile Tox B Gene COVID-19 ([facility]) COVID-19 Clin Com Blood Type Antibody Screen Crossmatch 06/21/22 06/21/22 06/21/22 06:53 06:53 06:57 WBC RBC Hgb Hct MCV MCH MCHC RDW Plt Count MPV Immature Gran % (Auto) Neut % (Auto) Lymph % (Auto) [place] % (Auto) Eos % (Auto) Baso % (Auto) Lymph # (Auto) [place] # (Auto) Eos # (Auto) Baso # (Auto) Abs Immat Gran (auto) Absolute Neuts (auto) Absolute Nucleated RBC Nucleated RBC % (auto) Neutrophils % (Manual) Band Neutrophils % Lymphocytes % (Manual) Atypical Lymphs % (Man) Monocytes % (Manual) Eosinophils % (Manual) Basophils % (Manual) Metamyelocytes % Myelocytes % Promyelocytes % Abs Neuts (Manual) Lymphocytes # (Manual) Atyp Lymphs # (Manual) Monocytes # (Manual) Eosinophils # (Manual) Basophils # (Manual) Metamyelocytes # Myelocytes # Promyelocytes # Nucleated RBCs Smudge Cells Toxic Granulation Toxic Vacuolation Dohle Bodies Platelet Estimate Large Platelets Plt Morphology Comment RBC Morphology Polychromasia Hypochromasia Microcytosis Macrocytosis Spherocytes Ovalocytes Stomatocytes Amonate Cells Smear Tech's Comments ESR PT INR aPTT Heparin Protocol Hep-Ind Thrombocytop Com O2 Saturation ABG pH at Pt Temp ABG pCO2 at Pt Temp ABG pO2 at Pt Temp ABG HCO3 ABG Base Excess (Actual) VBG pH 7.48 H VBG pCO2 21 VBG pO2 176 VBG HCO3 16 L VBG O2 Saturation 100.0 VBG Base Excess -5.2 Sodium 135 Potassium 3.4 Chloride 105 Carbon Dioxide 20 L Anion Gap 13 BUN 18 H Creatinine 0.59 Estim Creat Clear Calc 106.8 Estimated GFR > 60 POC Glucose Random Glucose 119 H Estimat Average Glucose Hemoglobin A1c % Lactic Acid Lactic Acid F/U @ 2Hr Lactic Acid F/U @ 4Hr Calcium 8.3 L Phosphorus Magnesium Total Bilirubin 0.7 Direct Bilirubin 0.4 AST 19 ALT 17 Alkaline Phosphatase 78 C-Reactive Protein B-Natriuretic Peptide Total Protein 5.8 L Albumin 3.0 L Triglycerides Lipase Procalcitonin Urine Color Urine Appearance Urine pH Ur Specific [place] Urine Protein Urine Glucose (UA) Urine Ketones Urine Blood Urine Nitrite Ur Leukocyte Esterase Ur Random Sodium Random Vancomycin Heparin Dep Plt Ab OD Hep-Induced Plt Ab Britt C. difficile Tox B Gene COVID-19 ([facility]) COVID-19 Clin Com Blood Type Antibody Screen Crossmatch 06/21/22 06/22/22 06/22/22 20:44 18:04 20:00 WBC RBC Hgb Hct MCV MCH MCHC RDW Plt Count MPV Immature Gran % (Auto) Neut % (Auto) Lymph % (Auto) [place] % (Auto) Eos % (Auto) Baso % (Auto) Lymph # (Auto) [place] # (Auto) Eos # (Auto) Baso # (Auto) Abs Immat Gran (auto) Absolute Neuts (auto) Absolute Nucleated RBC Nucleated RBC % (auto) Neutrophils % (Manual) Band Neutrophils % Lymphocytes % (Manual) Atypical Lymphs % (Man) Monocytes % (Manual) Eosinophils % (Manual) Basophils % (Manual) Metamyelocytes % Myelocytes % Promyelocytes % Abs Neuts (Manual) Lymphocytes # (Manual) Atyp Lymphs # (Manual) Monocytes # (Manual) Eosinophils # (Manual) Basophils # (Manual) Metamyelocytes # Myelocytes # Promyelocytes # Nucleated RBCs Smudge Cells Toxic Granulation Toxic Vacuolation Dohle Bodies Platelet Estimate Large Platelets Plt Morphology Comment RBC Morphology Polychromasia Hypochromasia Microcytosis Macrocytosis Spherocytes Ovalocytes Stomatocytes Amonate Cells Smear Tech's Comments ESR PT INR aPTT Heparin Protocol Hep-Ind Thrombocytop Com O2 Saturation ABG pH at Pt Temp ABG pCO2 at Pt Temp ABG pO2 at Pt Temp ABG HCO3 ABG Base Excess (Actual) VBG pH VBG pCO2 VBG pO2 VBG HCO3 VBG O2 Saturation VBG Base Excess Sodium Potassium Chloride Carbon Dioxide Anion Gap BUN Creatinine Estim Creat Clear Calc Estimated GFR POC Glucose 139 H 98 131 H Random Glucose Estimat Average Glucose Hemoglobin A1c % Lactic Acid Lactic Acid F/U @ 2Hr Lactic Acid F/U @ 4Hr Calcium Phosphorus Magnesium Total Bilirubin Direct Bilirubin AST ALT Alkaline Phosphatase C-Reactive Protein B-Natriuretic Peptide Total Protein Albumin Triglycerides Lipase Procalcitonin Urine Color Urine Appearance Urine pH Ur Specific [place] Urine Protein Urine Glucose (UA) Urine Ketones Urine Blood Urine Nitrite Ur Leukocyte Esterase Ur Random Sodium Random Vancomycin Heparin Dep Plt Ab OD Hep-Induced Plt Ab Britt C. difficile Tox B Gene COVID-19 ([facility]) COVID-19 Clin Com Blood Type Antibody Screen Crossmatch 06/23/22 06/23/22 06/23/22 06:07 06:07 11:32 WBC 14.5 H RBC 2.57 L Hgb 7.6 L Hct 23.6 L MCV 91.8 MCH 29.6 MCHC 32.2 RDW 16.9 H Plt Count 272 MPV 9.8 Immature Gran % (Auto) Neut % (Auto) Lymph % (Auto) [place] % (Auto) Eos % (Auto) Baso % (Auto) Lymph # (Auto) [place] # (Auto) Eos # (Auto) Baso # (Auto) Abs Immat Gran (auto) Absolute Neuts (auto) Absolute Nucleated RBC 0.000 Nucleated RBC % (auto) 0.0 Neutrophils % (Manual) Band Neutrophils % Lymphocytes % (Manual) Atypical Lymphs % (Man) Monocytes % (Manual) Eosinophils % (Manual) Basophils % (Manual) Metamyelocytes % Myelocytes % Promyelocytes % Abs Neuts (Manual) Lymphocytes # (Manual) Atyp Lymphs # (Manual) Monocytes # (Manual) Eosinophils # (Manual) Basophils # (Manual) Metamyelocytes # Myelocytes # Promyelocytes # Nucleated RBCs Smudge Cells Toxic Granulation Toxic Vacuolation Dohle Bodies Platelet Estimate Large Platelets Plt Morphology Comment RBC Morphology Polychromasia Hypochromasia Microcytosis Macrocytosis Spherocytes Ovalocytes Stomatocytes Amonate Cells Smear Tech's Comments ESR PT INR aPTT Heparin Protocol Hep-Ind Thrombocytop Com O2 Saturation ABG pH at Pt Temp ABG pCO2 at Pt Temp ABG pO2 at Pt Temp ABG HCO3 ABG Base Excess (Actual) VBG pH VBG pCO2 VBG pO2 VBG HCO3 VBG O2 Saturation VBG Base Excess Sodium 137 Potassium 3.4 Chloride 106 Carbon Dioxide 20 L Anion Gap 14 BUN 10 Creatinine 0.54 Estim Creat Clear Calc 115.8 Estimated GFR > 60 POC Glucose Random Glucose 101 Estimat Average Glucose Hemoglobin A1c % Lactic Acid Lactic Acid F/U @ 2Hr Lactic Acid F/U @ 4Hr Calcium 8.3 L Phosphorus Magnesium Total Bilirubin Direct Bilirubin AST ALT Alkaline Phosphatase C-Reactive Protein B-Natriuretic Peptide Total Protein Albumin Triglycerides Lipase Procalcitonin Urine Color Urine Appearance Urine pH Ur Specific [place] Urine Protein Urine Glucose (UA) Urine Ketones Urine Blood Urine Nitrite Ur Leukocyte Esterase Ur Random Sodium Random Vancomycin Heparin Dep Plt Ab OD Hep-Induced Plt Ab Britt C. difficile Tox B Gene COVID-19 ([facility]) COVID-19 Clin Com Blood Type B Positive Antibody Screen NEGATIVE Crossmatch See Detail 06/23/22 06/23/22 06/24/22 18:00 19:40 06:14 WBC 33.0 H* RBC 2.97 L Hgb 8.8 L Hct 26.9 L MCV 90.6 MCH 29.6 MCHC 32.7 RDW 17.4 H Plt Count 283 MPV 10.4 Immature Gran % (Auto) Neut % (Auto) Lymph % (Auto) [place] % (Auto) Eos % (Auto) Baso % (Auto) Lymph # (Auto) [place] # (Auto) Eos # (Auto) Baso # (Auto) Abs Immat Gran (auto) Absolute Neuts (auto) Absolute Nucleated RBC 0.000 Nucleated RBC % (auto) 0.0 Neutrophils % (Manual) Band Neutrophils % Lymphocytes % (Manual) Atypical Lymphs % (Man) Monocytes % (Manual) Eosinophils % (Manual) Basophils % (Manual) Metamyelocytes % Myelocytes % Promyelocytes % Abs Neuts (Manual) Lymphocytes # (Manual) Atyp Lymphs # (Manual) Monocytes # (Manual) Eosinophils # (Manual) Basophils # (Manual) Metamyelocytes # Myelocytes # Promyelocytes # Nucleated RBCs Smudge Cells Toxic Granulation Toxic Vacuolation Dohle Bodies Platelet Estimate Large Platelets Plt Morphology Comment RBC Morphology Polychromasia Hypochromasia Microcytosis Macrocytosis Spherocytes Ovalocytes Stomatocytes Amonate Cells Smear Tech's Comments ESR PT INR aPTT Heparin Protocol Hep-Ind Thrombocytop Com O2 Saturation ABG pH at Pt Temp ABG pCO2 at Pt Temp ABG pO2 at Pt Temp ABG HCO3 ABG Base Excess (Actual) VBG pH VBG pCO2 VBG pO2 VBG HCO3 VBG O2 Saturation VBG Base Excess Sodium Potassium Chloride Carbon Dioxide Anion Gap BUN Creatinine Estim Creat Clear Calc Estimated GFR POC Glucose 122 H 141 H Random Glucose Estimat Average Glucose Hemoglobin A1c % Lactic Acid Lactic Acid F/U @ 2Hr Lactic Acid F/U @ 4Hr Calcium Phosphorus Magnesium Total Bilirubin Direct Bilirubin AST ALT Alkaline Phosphatase C-Reactive Protein B-Natriuretic Peptide Total Protein Albumin Triglycerides Lipase Procalcitonin Urine Color Urine Appearance Urine pH Ur Specific [place] Urine Protein Urine Glucose (UA) Urine Ketones Urine Blood Urine Nitrite Ur Leukocyte Esterase Ur Random Sodium Random Vancomycin Heparin Dep Plt Ab OD Hep-Induced Plt Ab Britt C. difficile Tox B Gene COVID-19 ([facility]LER) COVID-19 Clin Com Blood Type Antibody Screen Crossmatch 06/24/22 06/24/22 06/24/22 06:14 06:14 07:12 WBC RBC Hgb Hct MCV MCH MCHC RDW Plt Count MPV Immature Gran % (Auto) Neut % (Auto) Lymph % (Auto) Lipscomb % (Auto) Eos % (Auto) Baso % (Auto) Lymph # (Auto) Lipscomb # (Auto) Eos # (Auto) Baso # (Auto) Abs Immat Gran (auto) Absolute Neuts (auto) Absolute Nucleated RBC Nucleated RBC % (auto) Neutrophils % (Manual) Band Neutrophils % Lymphocytes % (Manual) Atypical Lymphs % (Man) Monocytes % (Manual) Eosinophils % (Manual) Basophils % (Manual) Metamyelocytes % Myelocytes % Promyelocytes % Abs Neuts (Manual) Lymphocytes # (Manual) Atyp Lymphs # (Manual) Monocytes # (Manual) Eosinophils # (Manual) Basophils # (Manual) Metamyelocytes # Myelocytes # Promyelocytes # Nucleated RBCs Smudge Cells Toxic Granulation Toxic Vacuolation Dohle Bodies Platelet Estimate Large Platelets Plt Morphology Comment RBC Morphology Polychromasia Hypochromasia Microcytosis Macrocytosis Spherocytes Ovalocytes Stomatocytes Susan Cells Smear Tech's Comments ESR PT INR aPTT Heparin Protocol Hep-Ind Thrombocytop Com O2 Saturation ABG pH at Pt Temp ABG pCO2 at Pt Temp ABG pO2 at Pt Temp ABG HCO3 ABG Base Excess (Actual) VBG pH VBG pCO2 VBG pO2 VBG HCO3 VBG O2 Saturation VBG Base Excess Sodium 137 Potassium 3.2 L Chloride 106 Carbon Dioxide 19 L Anion Gap 15 BUN 13 Creatinine 0.54 Estim Creat Clear Calc 115.9 Estimated GFR > 60 POC Glucose 113 Random Glucose 115 Estimat Average Glucose 103 Hemoglobin A1c % 5.2 Lactic Acid Lactic Acid F/U @ 2Hr Lactic Acid F/U @ 4Hr Calcium 8.4 Phosphorus Magnesium Total Bilirubin Direct Bilirubin AST ALT Alkaline Phosphatase C-Reactive Protein B-Natriuretic Peptide Total Protein Albumin Triglycerides Lipase Procalcitonin Urine Color Urine Appearance Urine pH Ur Specific [place] Urine Protein Urine Glucose (UA) Urine Ketones Urine Blood Urine Nitrite Ur Leukocyte Esterase Ur Random Sodium Random Vancomycin Heparin Dep Plt Ab OD Hep-Induced Plt Ab Britt C. difficile Tox B Gene COVID-19 ([facility]) COVID-19 Clin Com Blood Type Antibody Screen Crossmatch 06/25/22 06/25/22 06/25/22 06:39 06:39 06:39 WBC 30.5 H* RBC 2.69 L Hgb 7.9 L Hct 24.6 L MCV 91.4 MCH 29.4 MCHC 32.1 RDW 17.8 H Plt Count 251 MPV 10.3 Immature Gran % (Auto) Neut % (Auto) Lymph % (Auto) Lipscomb % (Auto) Eos % (Auto) Baso % (Auto) Lymph # (Auto) Lipscomb # (Auto) Eos # (Auto) Baso # (Auto) Abs Immat Gran (auto) Absolute Neuts (auto) Absolute Nucleated RBC 0.000 Nucleated RBC % (auto) 0.0 Neutrophils % (Manual) Band Neutrophils % Lymphocytes % (Manual) Atypical Lymphs % (Man) Monocytes % (Manual) Eosinophils % (Manual) Basophils % (Manual) Metamyelocytes % Myelocytes % Promyelocytes % Abs Neuts (Manual) Lymphocytes # (Manual) Atyp Lymphs # (Manual) Monocytes # (Manual) Eosinophils # (Manual) Basophils # (Manual) Metamyelocytes # Myelocytes # Promyelocytes # Nucleated RBCs Smudge Cells Toxic Granulation Toxic Vacuolation Dohle Bodies Platelet Estimate Large Platelets Plt Morphology Comment RBC Morphology Polychromasia Hypochromasia Microcytosis Macrocytosis Spherocytes Ovalocytes Stomatocytes Susan Cells Smear Tech's Comments ESR PT INR aPTT Heparin Protocol Hep-Ind Thrombocytop Com O2 Saturation ABG pH at Pt Temp ABG pCO2 at Pt Temp ABG pO2 at Pt Temp ABG HCO3 ABG Base Excess (Actual) VBG pH VBG pCO2 VBG pO2 VBG HCO3 VBG O2 Saturation VBG Base Excess Sodium 137 Potassium 2.7 L Chloride 105 Carbon Dioxide 21 L Anion Gap 14 BUN 12 Creatinine 0.53 Estim Creat Clear Calc 116.9 Estimated GFR > 60 POC Glucose Random Glucose 108 Estimat Average Glucose Hemoglobin A1c % Lactic Acid Lactic Acid F/U @ 2Hr Lactic Acid F/U @ 4Hr Calcium 8.2 L Phosphorus Magnesium 1.6 Total Bilirubin 0.4 Direct Bilirubin 0.3 AST 7 D ALT 7 Alkaline Phosphatase 97 D C-Reactive Protein 26.68 H B-Natriuretic Peptide Total Protein 5.3 L Albumin 2.6 L Triglycerides Lipase Procalcitonin 29.42 Urine Color Urine Appearance Urine pH Ur Specific [place] Urine Protein Urine Glucose (UA) Urine Ketones Urine Blood Urine Nitrite Ur Leukocyte Esterase Ur Random Sodium Random Vancomycin Heparin Dep Plt Ab OD Hep-Induced Plt Ab Britt C. difficile Tox B Gene COVID-19 ([facility]) COVID-19 Clin Com Blood Type Antibody Screen Crossmatch 06/25/22 06/26/22 06/26/22 14:14 05:53 05:53 WBC 23.0 H RBC 2.68 L Hgb 7.9 L Hct 24.6 L MCV 91.8 MCH 29.5 MCHC 32.1 RDW 17.9 H Plt Count 248 MPV 10.2 Immature Gran % (Auto) Neut % (Auto) Lymph % (Auto) Lipscomb % (Auto) Eos % (Auto) Baso % (Auto) Lymph # (Auto) [place]comb # (Auto) Eos # (Auto) Baso # (Auto) Abs Immat Gran (auto) Absolute Neuts (auto) Absolute Nucleated RBC 0.000 Nucleated RBC % (auto) 0.0 Neutrophils % (Manual) Band Neutrophils % Lymphocytes % (Manual) Atypical Lymphs % (Man) Monocytes % (Manual) Eosinophils % (Manual) Basophils % (Manual) Metamyelocytes % Myelocytes % Promyelocytes % Abs Neuts (Manual) Lymphocytes # (Manual) Atyp Lymphs # (Manual) Monocytes # (Manual) Eosinophils # (Manual) Basophils # (Manual) Metamyelocytes # Myelocytes # Promyelocytes # Nucleated RBCs Smudge Cells Toxic Granulation Toxic Vacuolation Dohle Bodies Platelet Estimate Large Platelets Plt Morphology Comment RBC Morphology Polychromasia Hypochromasia Microcytosis Macrocytosis Spherocytes Ovalocytes Stomatocytes Amonate Cells Smear Tech's Comments ESR PT INR aPTT Heparin Protocol Hep-Ind Thrombocytop Com O2 Saturation ABG pH at Pt Temp ABG pCO2 at Pt Temp ABG pO2 at Pt Temp ABG HCO3 ABG Base Excess (Actual) VBG pH VBG pCO2 VBG pO2 VBG HCO3 VBG O2 Saturation VBG Base Excess Sodium 139 Potassium 3.5 D Chloride 109 H Carbon Dioxide 21 L Anion Gap 13 BUN 12 Creatinine 0.47 L Estim Creat Clear Calc 132.1 Estimated GFR > 60 POC Glucose Random Glucose 106 Estimat Average Glucose Hemoglobin A1c % Lactic Acid Lactic Acid F/U @ 2Hr Lactic Acid F/U @ 4Hr Calcium 8.1 L Phosphorus Magnesium Total Bilirubin 0.4 Direct Bilirubin AST 8 ALT 7 Alkaline Phosphatase 101 C-Reactive Protein B-Natriuretic Peptide Total Protein 4.9 L Albumin 2.4 L Triglycerides Lipase Procalcitonin Urine Color Urine Appearance Urine pH Ur Specific [place] Urine Protein Urine Glucose (UA) Urine Ketones Urine Blood Urine Nitrite Ur Leukocyte Esterase Ur Random Sodium Random Vancomycin 17.8 Heparin Dep Plt Ab OD Hep-Induced Plt Ab Britt C. difficile Tox B Gene COVID-19 ([facility]) COVID-19 Clin Com Blood Type Antibody Screen Crossmatch 06/26/22 06/27/22 06/27/22 14:02 05:59 05:59 WBC 10.4 RBC 3.00 L Hgb 8.7 L Hct 27.7 L MCV 92.3 MCH 29.0 MCHC 31.4 RDW 17.5 H Plt Count 250 MPV 10.8 Immature Gran % (Auto) Neut % (Auto) Lymph % (Auto) [place]comb % (Auto) Eos % (Auto) Baso % (Auto) Lymph # (Auto) [place]comb # (Auto) Eos # (Auto) Baso # (Auto) Abs Immat Gran (auto) Absolute Neuts (auto) Absolute Nucleated RBC 0.000 Nucleated RBC % (auto) 0.0 Neutrophils % (Manual) Band Neutrophils % Lymphocytes % (Manual) Atypical Lymphs % (Man) Monocytes % (Manual) Eosinophils % (Manual) Basophils % (Manual) Metamyelocytes % Myelocytes % Promyelocytes % Abs Neuts (Manual) Lymphocytes # (Manual) Atyp Lymphs # (Manual) Monocytes # (Manual) Eosinophils # (Manual) Basophils # (Manual) Metamyelocytes # Myelocytes # Promyelocytes # Nucleated RBCs Smudge Cells Toxic Granulation Toxic Vacuolation Dohle Bodies Platelet Estimate Large Platelets Plt Morphology Comment RBC Morphology Polychromasia Hypochromasia Microcytosis Macrocytosis Spherocytes Ovalocytes Stomatocytes Susan Cells Smear Tech's Comments ESR PT INR aPTT Heparin Protocol Hep-Ind Thrombocytop Com O2 Saturation ABG pH at Pt Temp ABG pCO2 at Pt Temp ABG pO2 at Pt Temp ABG HCO3 ABG Base Excess (Actual) VBG pH VBG pCO2 VBG pO2 VBG HCO3 VBG O2 Saturation VBG Base Excess Sodium 139 Potassium 3.8 Chloride 108 Carbon Dioxide 21 L Anion Gap 14 BUN 10 Creatinine 0.46 L Estim Creat Clear Calc 138.2 Estimated GFR > 60 POC Glucose Random Glucose 80 Estimat Average Glucose Hemoglobin A1c % Lactic Acid Lactic Acid F/U @ 2Hr Lactic Acid F/U @ 4Hr Calcium 8.2 L Phosphorus Magnesium Total Bilirubin Direct Bilirubin AST ALT Alkaline Phosphatase C-Reactive Protein 13.96 H B-Natriuretic Peptide Total Protein Albumin Triglycerides Lipase Procalcitonin Urine Color Urine Appearance Urine pH Ur Specific [place] Urine Protein Urine Glucose (UA) Urine Ketones Urine Blood Urine Nitrite Ur Leukocyte Esterase Ur Random Sodium Random Vancomycin 15.0 Heparin Dep Plt Ab OD Hep-Induced Plt Ab Britt C. difficile Tox B Gene COVID-19 ([facility]) COVID-19 Clin Com Blood Type Antibody Screen Crossmatch 06/27/22 05:59 WBC RBC Hgb Hct MCV MCH MCHC RDW Plt Count MPV Immature Gran % (Auto) Neut % (Auto) Lymph % (Auto) [place]comb % (Auto) Eos % (Auto) Baso % (Auto) Lymph # (Auto) [place]comb # (Auto) Eos # (Auto) Baso # (Auto) Abs Immat Gran (auto) Absolute Neuts (auto) Absolute Nucleated RBC Nucleated RBC % (auto) Neutrophils % (Manual) Band Neutrophils % Lymphocytes % (Manual) Atypical Lymphs % (Man) Monocytes % (Manual) Eosinophils % (Manual) Basophils % (Manual) Metamyelocytes % Myelocytes % Promyelocytes % Abs Neuts (Manual) Lymphocytes # (Manual) Atyp Lymphs # (Manual) Monocytes # (Manual) Eosinophils # (Manual) Basophils # (Manual) Metamyelocytes # Myelocytes # Promyelocytes # Nucleated RBCs Smudge Cells Toxic Granulation Toxic Vacuolation Dohle Bodies Platelet Estimate Large Platelets Plt Morphology Comment RBC Morphology Polychromasia Hypochromasia Microcytosis Macrocytosis Spherocytes Ovalocytes Stomatocytes Amonate Cells Smear Tech's Comments ESR PT INR aPTT Heparin Protocol Hep-Ind Thrombocytop Com O2 Saturation ABG pH at Pt Temp ABG pCO2 at Pt Temp ABG pO2 at Pt Temp ABG HCO3 ABG Base Excess (Actual) VBG pH VBG pCO2 VBG pO2 VBG HCO3 VBG O2 Saturation VBG Base Excess Sodium Potassium Chloride Carbon Dioxide Anion Gap BUN Creatinine Estim Creat Clear Calc Estimated GFR POC Glucose Random Glucose Estimat Average Glucose Hemoglobin A1c % Lactic Acid Lactic Acid F/U @ 2Hr Lactic Acid F/U @ 4Hr Calcium Phosphorus Magnesium Total Bilirubin Direct Bilirubin AST ALT Alkaline Phosphatase C-Reactive Protein B-Natriuretic Peptide Total Protein Albumin Triglycerides Lipase Procalcitonin 11.11 Urine Color Urine Appearance Urine pH Ur Specific [place] Urine Protein Urine Glucose (UA) Urine Ketones Urine Blood Urine Nitrite Ur Leukocyte Esterase Ur Random Sodium Random Vancomycin Heparin Dep Plt Ab OD Hep-Induced Plt Ab Britt C. difficile Tox B Gene COVID-19 ([facility]) COVID-19 Clin Com Blood Type Antibody Screen Crossmatch Microbiology Microbiology Results: Microbiology 06/22/22 16:30 Gram Stain - Final Abdominal Fluid Routine Culture - Final Verónica albicans Anaerobic Culture - Final NO GROWTH AFTER 5 DAYS 06/02/22 Unknown Fungal Identification - Preliminary Abscess Intra-abdominal Verónica dubliniensis 06/24/22 06:14 Blood Culture - Preliminary Blood - Venous No growth after 48 hours. 06/24/22 06:14 Blood Culture - Preliminary Blood - Venous No growth after 48 hours. Quality Stroke Does the patient have a stroke diagnosis?: No VTE Prior VTE?: No VTE Risk Level:: Medical - moderate - high VTE Device Contraindication: N/A - Device Ordered VTE Drug Contraindication: N/A - Med Ordered
--- NOTE | 2022-06-27 11:44 | HO.PM.IMPN ---
Subjective Subjective Date of Service: 06/27/22 Interval History: fever curve improved, Tmax 100.2 @ 00:09; WBCs normalized tolerating diet cramping around stoma Review of Systems Review of Systems: Yes all other systems are reviewed and are negative Physical Exam Vital Signs: Vital Signs: Last Vital Signs Temp 98.2 F 06/27/22 11:29 Pulse 92 06/27/22 11:29 Resp 20 06/27/22 11:29 BP 113/57 L 06/27/22 11:29 Pulse Ox 93 06/27/22 11:29 O2 Del Method 06/27/22 11:29 O2 Flow Rate 2 06/27/22 07:39 FiO2 35 06/14/22 12:00 Oxygen Flow Rate 35 06/13/22 21:00 BMI result Body Mass Index 35.9 Gen: no acute distress HEENT: sclera anicteric, moist mucus membranes Neck: supple Lungs: clear to auscultation bilaterally Heart: regular, tachycardic, no murmurs Abd: soft, stoma with stool, non-tender, IR drains x3 with scant purulent liquid Ext: no edema, LUE midline catheter Skin: warm/well-perfused Neuro: alert and oriented x3, no focal findings Psych: appropriate affect Objective Data Active Medications Acetaminophen (Acetaminophen 325 Mg Tablet) 650 mg PO Q6H PRN PRN Reason: fever Last Admin: 06/27/22 00:36 Dose: 650 mg Documented By: NUPUR Heparin Sodium (Porcine) 50 (units/ Sodium Chloride 5 ml) 0 units IVFLUSH TID [facility] Last Admin: 06/27/22 09:31 Dose: 50 unit Documented By: ASHLEY Duloxetine HCl (Duloxetine Hcl 60 Mg Capsule.Dr) 60 mg PO BEDTIME [facility] Last Admin: 06/26/22 21:53 Dose: 60 mg Documented By: ASHLEY Enoxaparin Sodium (Enoxaparin Sodium 40 Mg/0.4 Ml Syringe) 40 mg SUBCUT Q24H [facility] Last Admin: 06/27/22 09:32 Dose: 40 mg Documented By: ASHLEY Gabapentin (Gabapentin 300 Mg Capsule) 300 mg PO BEDTIME [facility] Last Admin: 06/26/22 21:53 Dose: 300 mg Documented By: ASHLEY Hydromorphone HCl (Hydromorphone Hcl 0.5 Mg/0.5 Ml Syringe) 0.5 mg IVPUSH Q4H PRN; Protocol PRN Reason: mild pain Last Admin: 06/27/22 09:40 Dose: 0.5 mg Documented By: ASHLEY Voriconazole 200 mg/ Sodium (Chloride) 100 mls @ 50 mls/hr IV Q12H [facility] Last Admin: 06/27/22 09:33 Dose: 50 mls/hr Documented By: ASHLEY Meropenem 1 gm/ Sodium (Chloride) 100 mls @ 200 mls/hr IV Q8H [facility] Last Infusion: 06/27/22 10:06 Dose: 0 mls/hr Documented By: ASHLEY Vancomycin HCl 1,000 mg/ (Sodium Chloride) 270 mls @ 270 mls/hr IV Q12H [facility] Last Infusion: 06/27/22 09:41 Dose: 0 mls/hr Documented By: ASHLEY Metoclopramide HCl (Metoclopramide Hcl 10 Mg/2 Ml Vial) 5 mg IVPUSH Q6H [facility] Last Admin: 06/27/22 11:19 Dose: 5 mg Documented By: ASHLEY Metoprolol Tartrate (Metoprolol Tartrate 100 Mg Tablet) 100 mg PO BID [facility]; Protocol Last Admin: 06/27/22 09:32 Dose: 100 mg Documented By: ASHLEY Nystatin (Nystatin Powder 15 Gm Bottle) 1 appl TOPICAL BID [facility]; Protocol Last Admin: 06/27/22 10:05 Dose: 1 appl Documented By: ASHLEY Ondansetron HCl (Ondansetron Hcl 4 Mg/2 Ml Vial) 4 mg IVPUSH Q6H PRN PRN Reason: Nausea Last Admin: 06/26/22 22:36 Dose: 4 mg Documented By: ASHLEY Oxycodone HCl (Oxycodone Hcl Immed Release 5 Mg Tablet) 5 mg PO Q4H PRN PRN Reason: Pain, Moderate (Pain Scale 4-6 Last Admin: 06/27/22 00:21 Dose: 5 mg Documented By: NUPUR Pharmacy Consult (Consult Rx Perform Med Rec) 1 each MISCELLANE ONCE PRN PRN Reason: Consult order Pharmacy Consult (Consult Rx Vancomycin Dosing) 1 each MISCELLANE DAILY PRN PRN Reason: Consult order Sodium Chloride (0.9 % Sodium Chloride Flush 3 Ml Syringe) 3 ml IVFLUSH QSHIFT [facility] Last Admin: 06/27/22 09:33 Dose: 3 ml Documented By: ASHLEY Topiramate (Topiramate 100 Mg Tablet) 200 mg PO BID [facility] Last Admin: 06/27/22 09:33 Dose: 200 mg Documented By: ASHLEY Labs CBC & Chem 7: 06/27/22 05:59 06/27/22 05:59 Labs: Laboratory Results - last 24 hr 06/26/22 06/27/22 06/27/22 14:02 05:59 05:59 MCV 92.3 MCH 29.0 MCHC 31.4 RDW 17.5 H Plt Count 250 MPV 10.8 Absolute Nucleated RBC 0.000 Nucleated RBC % (auto) 0.0 Anion Gap 14 Estim Creat Clear Calc 138.2 Estimated GFR > 60 Random Glucose 80 Calcium 8.2 L C-Reactive Protein 13.96 H Procalcitonin Random Vancomycin 15.0 06/27/22 05:59 MCV MCH MCHC RDW Plt Count MPV Absolute Nucleated RBC Nucleated RBC % (auto) Anion Gap Estim Creat Clear Calc Estimated GFR Random Glucose Calcium C-Reactive Protein Procalcitonin 11.11 Random Vancomycin Microbiology Microbiology Results: Microbiology 06/22/22 16:30 Gram Stain - Final Abdominal Fluid Routine Culture - Final Verónica albicans Anaerobic Culture - Final NO GROWTH AFTER 5 DAYS 06/02/22 Unknown Fungal Identification - Preliminary Abscess Intra-abdominal Verónica dubliniensis 06/24/22 06:14 Blood Culture - Preliminary Blood - Venous No growth after 48 hours. 06/24/22 06:14 Blood Culture - Preliminary Blood - Venous No growth after 48 hours. Assessment and Plan (1) Leukocytosis: Status: Acute Plan d#41 62yo F admitted 05/18/22 with colitis/Crohn's flare. Flex sig showed perforation with abscess; taken to OR for ex-lap with colostomy after found to have extensive fecal soilage in peritoneum. Severely septic, sent to ICU intubated. Course since then complicated by multiple intra-abdominal abscesses causing fevers, with multiple drains placed by IR. Treated with metronidazole + meropenem and given TPN. Extubated 06/07/22, transitioned to tube feeds and then to oral diet. # sepsis with persistent fever - likely abdominal source, drained x3; IV meropenem, vancomycin, and voriconazole as per ID consultation; growing Verónica albicans and Verónica dubliniensis- susceptibilities requested. per ID, d/c meropenem and vancomycin tomorrow if no further evidence of bacterial infection; voriconazole d#12/05 [can change to oral upon eventual discharge] # septic shock secondary to perforated viscus with fecal peritonitis - s/p ex-lap/colostomy - got 3 wk of meropenem + metronidazole, ABX then stopped - extubated 06/07/22, given TPN, transitioned to tube feeds, then to oral feeds - latest IR-guided drainage on 06/22 with removal of 500 mL of purulent fluid - opioids for pain control # hypoK - repleted # migraines - resolved after 1 dose SQ sumatriptan # recurrent toxic-metabolic encephalopathy - resolved, was likely due to fever # acute/chronic normocytic anemia - likely due to inflammation, no acute blood loss noted; given 1u pRBCs on 06/23/22 # SABINE due to septic shock/hypovolemia - resolved # hyperglycemia - due to critical illness; resolved # acute respiratory failure - extubated in ICU 06/07/22 # VTE ppx: LMWH # dispo: will need rehab In my clinical judgment, the patient requires continued hospitalization for the following reasons: fever, sepsis Quality Stroke Does the patient have a stroke diagnosis?: No VTE Prior VTE?: No VTE Risk Level:: Medical - moderate - high VTE Device Contraindication: N/A - Device Ordered VTE Drug Contraindication: N/A - Med Ordered
[2022-06-27 15:09] LABS: Vancomycin Random 17.7 mcg/mL (15-20)
--- NOTE | 2022-06-27 15:47 | PM.GIPN ---
Subjective Subjective Date of Service: 06/27/22 Interval History: c/o lower abd cramping Critical Care Time (minutes): 0 Physical Exam Vital Signs: Vital Signs: Last Vital Signs Temp 99.3 F 06/27/22 15:23 Pulse 109 H 06/27/22 15:23 Resp 18 06/27/22 15:23 BP 118/70 06/27/22 15:23 Pulse Ox 91 L 06/27/22 15:23 O2 Del Method 06/27/22 15:23 O2 Flow Rate 2 06/27/22 07:39 FiO2 35 06/14/22 12:00 Oxygen Flow Rate 35 06/13/22 21:00 BMI result Body Mass Index 35.9 GI: Other: abd is soft and nontender Objective Data Labs CBC & Chem 7: 06/27/22 05:59 06/27/22 05:59 Procedures Date of Service Date of Service: 06/27/22 Arterial Line Size (Gauge): 16 Progress Note: A&P Assessment and plan (1) Perforated viscus: Status: Acute Assessment and Plan: iv metaclopamide d/c'd as this may be contributing to her cramping trial of dicyclomine. continue supportive care. Time Spent With Patient Time: Total time spent is greater than 50% in coordination of care (as documented) at patient's floor/unit and/or counseling patient: Quality Stroke Does the patient have a stroke diagnosis?: No VTE Prior VTE?: No VTE Risk Level:: Medical - moderate - high VTE Device Contraindication: N/A - Device Ordered VTE Drug Contraindication: N/A - Med Ordered
[2022-06-27] MEDS: Dicyclomine HCl 10 MG CAPSULE 20 MG PO (17:33)
[2022-06-27] MEDS: Enoxaparin Sodium 100 MG/ML SYRINGE 90 MG SUBCUT (17:35)
--- NOTE | 2022-06-27 17:52 | PM.PNGS ---
Subjective Subjective Date of Service: 06/29/22 Interval history: fever pattern continues to improve stoma functioning well a little bit of oral intake some episodes of crampy lower abdominal pain Physical Exam Vital Signs: Vital Signs: Last Vital Signs Temp 99.3 F 06/27/22 15:23 Pulse 109 H 06/27/22 15:23 Resp 18 06/27/22 15:23 BP 118/70 06/27/22 15:23 Pulse Ox 91 L 06/27/22 15:23 O2 Del Method 06/27/22 15:23 O2 Flow Rate 2 06/27/22 07:39 FiO2 35 06/14/22 12:00 Oxygen Flow Rate 35 06/13/22 21:00 BMI result Body Mass Index 35.9 Const: General: comfortable and no acute distress Resp: Other: breathing pattern less labored GI: Other: soft, was stoma with good output, [address], all looking purulent although output not large Objective Data Active Medications Acetaminophen (Acetaminophen 325 Mg Tablet) 650 mg PO Q6H PRN PRN Reason: fever Last Admin: 06/27/22 00:36 Dose: 650 mg Documented By: NUPUR Heparin Sodium (Porcine) 50 (units/ Sodium Chloride 5 ml) 0 units IVFLUSH TID [facility] Last Admin: 06/27/22 15:22 Dose: Not Given Documented By: ASHLEY Non-Admin Reason: Midline occluded Dicyclomine HCl (Dicyclomine Hcl 10 Mg Capsule) 20 mg PO TIDAC [facility] Last Admin: 06/27/22 17:33 Dose: 20 mg Documented By: ASHLEY Duloxetine HCl (Duloxetine Hcl 60 Mg Capsule.Dr) 60 mg PO BEDTIME [facility] Last Admin: 06/26/22 21:53 Dose: 60 mg Documented By: ASHLEY Enoxaparin Sodium (Enoxaparin Sodium 100 Mg/Ml Syringe) 90 mg 1 mg/kg (90 mg) SUBCUT Q12H [facility] Last Admin: 06/27/22 17:35 Dose: 90 mg Documented By: ASHLEY Gabapentin (Gabapentin 300 Mg Capsule) 300 mg PO BEDTIME [facility] Last Admin: 06/26/22 21:53 Dose: 300 mg Documented By: ASHLEY Hydromorphone HCl (Hydromorphone Hcl 0.5 Mg/0.5 Ml Syringe) 0.5 mg IVPUSH Q4H PRN; Protocol PRN Reason: mild pain Last Admin: 06/27/22 09:40 Dose: 0.5 mg Documented By: ASHLEY Voriconazole 200 mg/ Sodium (Chloride) 100 mls @ 50 mls/hr IV Q12H [facility] Last Infusion: 06/27/22 15:21 Dose: 0 mls/hr Documented By: ASHLEY Meropenem 1 gm/ Sodium (Chloride) 100 mls @ 200 mls/hr IV Q8H [facility] Last Infusion: 06/27/22 10:06 Dose: 0 mls/hr Documented By: ASHLEY Vancomycin HCl 750 mg/ Sodium (Chloride) 265 mls @ 265 mls/hr IV Q12H [facility] Metoprolol Tartrate (Metoprolol Tartrate 100 Mg Tablet) 100 mg PO BID [facility]; Protocol Last Admin: 06/27/22 09:32 Dose: 100 mg Documented By: ASHLEY Nystatin (Nystatin Powder 15 Gm Bottle) 1 appl TOPICAL BID [facility]; Protocol Last Admin: 06/27/22 10:05 Dose: 1 appl Documented By: ASHLEY Ondansetron HCl (Ondansetron Hcl 4 Mg/2 Ml Vial) 4 mg IVPUSH Q6H PRN PRN Reason: Nausea Last Admin: 06/26/22 22:36 Dose: 4 mg Documented By: ASHLEY Oxycodone HCl (Oxycodone Hcl Immed Release 5 Mg Tablet) 5 mg PO Q4H PRN PRN Reason: Pain, Moderate (Pain Scale 4-6 Last Admin: 06/27/22 17:33 Dose: 5 mg Documented By: ASHLEY Pharmacy Consult (Consult Rx Perform Med Rec) 1 each MISCELLANE ONCE PRN PRN Reason: Consult order Pharmacy Consult (Consult Rx Vancomycin Dosing) 1 each MISCELLANE DAILY PRN PRN Reason: Consult order Sodium Chloride (0.9 % Sodium Chloride Flush 3 Ml Syringe) 3 ml IVFLUSH QSHIFT [facility] Last Admin: 06/27/22 09:33 Dose: 3 ml Documented By: ASHLEY Topiramate (Topiramate 100 Mg Tablet) 200 mg PO BID [facility] Last Admin: 06/27/22 09:33 Dose: 200 mg Documented By: ASHLEY Labs CBC & Chem 7: 06/29/22 06:13 06/29/22 06:13 Labs: Laboratory Results - last 24 hr 06/27/22 06/27/22 06/27/22 05:59 05:59 05:59 MCV 92.3 MCH 29.0 MCHC 31.4 RDW 17.5 H Plt Count 250 MPV 10.8 Absolute Nucleated RBC 0.000 Nucleated RBC % (auto) 0.0 Anion Gap 14 Estim Creat Clear Calc 138.2 Estimated GFR > 60 Random Glucose 80 Calcium 8.2 L C-Reactive Protein 13.96 H Procalcitonin 11.11 Random Vancomycin 06/27/22 14:23 MCV MCH MCHC RDW Plt Count MPV Absolute Nucleated RBC Nucleated RBC % (auto) Anion Gap Estim Creat Clear Calc Estimated GFR Random Glucose Calcium C-Reactive Protein Procalcitonin Random Vancomycin 17.7 Microbiology Microbiology Results: Microbiology 06/02/22 Unknown Fungal Identification - Preliminary Abscess Intra-abdominal Verónica dubliniensis 06/22/22 16:30 Gram Stain - Final Abdominal Fluid Routine Culture - Preliminary Verónica albicans Anaerobic Culture - Final NO GROWTH AFTER 5 DAYS Procedures Date of Service Date of Service: 06/27/22 Arterial Line Size (Gauge): 16 Progress Note: A&P Assessment and plan (1) Status post colostomy: Status: Acute Assessment and Plan: fever pattern much improved continue IV antibiotics Push p.o. intake out of bed to chair keep drains in place chandler Davis at bedside Time Spent With Patient Time: Total time spent is greater than 50% in coordination of care (as documented) at patient's floor/unit and/or counseling patient: Quality Stroke Does the patient have a stroke diagnosis?: No VTE Prior VTE?: No VTE Risk Level:: Medical - moderate - high VTE Device Contraindication: N/A - Device Ordered VTE Drug Contraindication: N/A - Med Ordered
[2022-06-27] MEDS: vancomycin HCL 750 MG in 0.9 % Sodium Chloride 250 ML 265 MG IV (18:59)
--- NOTE | 2022-06-27 19:39 | PC.NURSE ---
Alert and oriented. C/O abdominal cramps on and off, medicated per MAR with some effect. VSS, no acute resp. distress noted. Went to IR for midline placement. First schedule ABT given without any difficulties. Midline occluded during vericonazole infusing, unable to flushed line. Dr. Acuña and IR nurse made aware. Unable to insert peripheral line after multiple attempts by nursing supervisor respiratory. Ultrasound order to r/o clot. Clot noted on ultrasound, higher dose of lovenox order. IR nurse re-adjusted midline and was able to flush and get blood return. IR nurse/MD in agreement to continue administer schedule ABT through the line. Line flushed well. IV vamcomycin currently infusing without any difficulty. at bedside for the most part of the day, support provided. Will continue to monitor and treat per plan of care.
[2022-06-27] MEDS: Gabapentin 300 MG CAPSULE PO (21:52)
[2022-06-27] MEDS: DULoxetine HCl 60 MG CAPSULE.DR PO (21:52)
[2022-06-28 04:00] VITALS: BP 161/76; PULSE 93; RESP 20; TEMP 37.3; O2SAT 97
[2022-06-28] MEDS: oxyCODONE HCl Immed Release 5 MG TABLET PO (04:14)
[2022-06-28] MEDS: Enoxaparin Sodium 100 MG/ML SYRINGE 90 MG SUBCUT ×2 (04:14→17:45)
[2022-06-28 06:00] VITALS: BMI 35.5
[2022-06-28 07:17] VITALS: BP 146/77; PULSE 94; RESP 20; TEMP 35.9; O2SAT 98
[2022-06-28 07:42] LABS: Creatinine Clr Calc Pharmacy 143.7; Estimated Glomerular Filt Rate > 60
[2022-06-28] MEDS: Topiramate 100 MG TABLET 200 MG PO ×2 (08:32→21:15)
[2022-06-28] MEDS: Dicyclomine HCl 10 MG CAPSULE 20 MG PO ×3 (08:32→17:44)
[2022-06-28] MEDS: Metoprolol Tartrate 100 MG TABLET PO ×2 (08:32→21:16)
--- NOTE | 2022-06-28 08:41 | P.PNGS_ITS ---
Subjective Subjective Date of Service: 06/29/22 Interval history: lost IV access PICC line clogged - DVT seen on US fever pattern much better stoma functioning Physical Exam Vital Signs: Vital Signs: Last Vital Signs Temp 96.7 F L 06/28/22 07:17 Pulse 94 06/28/22 07:17 Resp 20 06/28/22 07:17 BP 146/77 H 06/28/22 07:17 Pulse Ox 98 06/28/22 07:17 O2 Del Method 06/28/22 07:17 O2 Flow Rate 2 06/28/22 07:17 FiO2 35 06/14/22 12:00 Oxygen Flow Rate 35 06/13/22 21:00 BMI result Body Mass Index 35.5 Const: General: no acute distress Resp: Effort & Inspection: normal respiratory effort Cardio: Rhythm: regular rhythm GI: Other: soft, stoma with good output, 3 drains in palce on left, output not much but purulent Palpation (GI): not firm and no guarding Objective Data Active Medications Acetaminophen (Acetaminophen 325 Mg Tablet) 650 mg PO Q6H PRN PRN Reason: fever Last Admin: 06/27/22 00:36 Dose: 650 mg Documented By: NUPUR Heparin Sodium (Porcine) 50 (units/ Sodium Chloride 5 ml) 0 units IVFLUSH TID [facility] Last Admin: 06/28/22 02:30 Dose: Not Given Documented By: NUPUR Non-Admin Reason: infiltrated Dicyclomine HCl (Dicyclomine Hcl 10 Mg Capsule) 20 mg PO TIDAC [facility] Last Admin: 06/28/22 08:32 Dose: 20 mg Documented By: VITA Duloxetine HCl (Duloxetine Hcl 60 Mg Capsule.Dr) 60 mg PO BEDTIME [facility] Last Admin: 06/27/22 21:52 Dose: 60 mg Documented By: NUPUR Enoxaparin Sodium (Enoxaparin Sodium 100 Mg/Ml Syringe) 90 mg 1 mg/kg (90 mg) SUBCUT Q12H [facility] Last Admin: 06/28/22 04:14 Dose: 90 mg Documented By: NUPUR Gabapentin (Gabapentin 300 Mg Capsule) 300 mg PO BEDTIME [facility] Last Admin: 06/27/22 21:52 Dose: 300 mg Documented By: NUPUR Hydromorphone HCl (Hydromorphone Hcl 0.5 Mg/0.5 Ml Syringe) 0.5 mg IVPUSH Q4H PRN; Protocol PRN Reason: mild pain Last Admin: 06/27/22 18:58 Dose: 0.5 mg Documented By: ASHLEY Voriconazole 200 mg/ Sodium (Chloride) 100 mls @ 50 mls/hr IV Q12H [facility] Last Admin: 06/28/22 02:33 Dose: Not Given Documented By: NUPUR Non-Admin Reason: midline infiltrated Meropenem 1 gm/ Sodium (Chloride) 100 mls @ 200 mls/hr IV Q8H [facility] Last Admin: 06/28/22 02:33 Dose: Not Given Documented By: NUPUR Non-Admin Reason: midline infiltrated Vancomycin HCl 750 mg/ Sodium (Chloride) 265 mls @ 265 mls/hr IV Q12H [facility] Last Admin: 06/28/22 04:08 Dose: Not Given Documented By: NUPUR Non-Admin Reason: midline infiltrated Metoprolol Tartrate (Metoprolol Tartrate 100 Mg Tablet) 100 mg PO BID [facility]; Protocol Last Admin: 06/28/22 08:32 Dose: 100 mg Documented By: VITA Nystatin (Nystatin Powder 15 Gm Bottle) 1 appl TOPICAL BID [facility]; Protocol Last Admin: 06/27/22 21:54 Dose: 1 appl Documented By: NUPUR Ondansetron HCl (Ondansetron Hcl 4 Mg/2 Ml Vial) 4 mg IVPUSH Q6H PRN PRN Reason: Nausea Last Admin: 06/26/22 22:36 Dose: 4 mg Documented By: ASHLEY Oxycodone HCl (Oxycodone Hcl Immed Release 5 Mg Tablet) 5 mg PO Q4H PRN PRN Reason: Pain, Moderate (Pain Scale 4-6 Last Admin: 06/28/22 04:14 Dose: 5 mg Documented By: NUPUR Pharmacy Consult (Consult Rx Perform Med Rec) 1 each MISCELLANE ONCE PRN PRN Reason: Consult order Pharmacy Consult (Consult Rx Vancomycin Dosing) 1 each MISCELLANE DAILY PRN PRN Reason: Consult order Sodium Chloride (0.9 % Sodium Chloride Flush 3 Ml Syringe) 3 ml IVFLUSH QSHIFT [facility] Last Admin: 06/28/22 02:32 Dose: Not Given Documented By: NUPUR Non-Admin Reason: midline infiltrated Topiramate (Topiramate 100 Mg Tablet) 200 mg PO BID [facility] Last Admin: 06/28/22 08:32 Dose: 200 mg Documented By: VITA Labs CBC & Chem 7: 06/29/22 06:13 06/29/22 06:13 Labs: Laboratory Results - last 24 hr 06/27/22 06/27/22 06/28/22 05:59 14:23 06:44 Estim Creat Clear Calc 143.7 Estimated GFR > 60 Procalcitonin 11.11 Random Vancomycin 17.7 Microbiology Microbiology Results: Microbiology 06/27/22 01:16 Blood Culture - Preliminary Blood - Venous No growth after 24 hours. 06/27/22 01:16 Blood Culture - Preliminary Blood - Venous No growth after 24 hours. 06/02/22 Unknown Fungal Identification - Preliminary Abscess Intra-abdominal Verónica dubliniensis 06/22/22 16:30 Gram Stain - Final Abdominal Fluid Routine Culture - Preliminary Verónica albicans Anaerobic Culture - Final NO GROWTH AFTER 5 DAYS Procedures Date of Service Date of Service: 06/28/22 Arterial Line Size (Gauge): 16 Progress Note: A&P Assessment and plan (1) Status post colostomy: Status: Acute Assessment and Plan: push PO intake keep drains in needs IV access - for Meropenem and antifungal OOb to chair stoma care Time Spent With Patient Time: Total time spent is greater than 50% in coordination of care (as documented) at patient's floor/unit and/or counseling patient: Quality Stroke Does the patient have a stroke diagnosis?: No VTE Prior VTE?: No VTE Risk Level:: Medical - moderate - high VTE Device Contraindication: N/A - Device Ordered VTE Drug Contraindication: N/A - Med Ordered
[2022-06-28 09:12] VITALS: RESP 18
[2022-06-28] MEDS: HYDROmorphone HCl 0.5 MG/0.5 ML SYRINGE IVPUSH ×4 (09:12→22:42)
[2022-06-28] MEDS: Voriconazole 200 MG in 0.9 % Sodium Chloride 100 ML 50 MG IV ×2 (09:16→22:42)
[2022-06-28] MEDS: 0.9 % Sodium Chloride Flush 3 ML SYRINGE IVFLUSH ×2 (09:36→17:45)
[2022-06-28 11:07] VITALS: BP 103/65; PULSE 78; RESP 16; TEMP 35.9; O2SAT 99
--- NOTE | 2022-06-28 13:20 | HO.PM.IMPN ---
Subjective Subjective Date of Service: 06/28/22 Interval History: Diagnosed with catheter-assoc UEDVT last night Catheter continues to function and is being used as multiple attempts at obtaining PIV have been unsuccessful No longer febrile Tolerating diet Review of Systems Review of Systems: Yes all other systems are reviewed and are negative Physical Exam Vital Signs: Vital Signs: Last Vital Signs Temp 96.7 F L 06/28/22 11:07 Pulse 78 06/28/22 11:07 Resp 16 06/28/22 11:07 BP 103/65 06/28/22 11:07 Pulse Ox 99 06/28/22 11:07 O2 Del Method 06/28/22 11:07 O2 Flow Rate 2 06/28/22 11:07 FiO2 35 06/14/22 12:00 Oxygen Flow Rate 35 06/13/22 21:00 BMI result Body Mass Index 35.5 Gen: no acute distress HEENT: sclera anicteric, moist mucus membranes Neck: supple Lungs: clear to auscultation bilaterally Heart: regular, tachycardic, no murmurs Abd: soft, stoma with stool, non-tender, IR drains x3 with scant purulent liquid Ext: no edema, LUE midline catheter Skin: warm/well-perfused Neuro: alert and oriented x3, no focal findings Psych: appropriate affect Objective Data Active Medications Acetaminophen (Acetaminophen 325 Mg Tablet) 650 mg PO Q6H PRN PRN Reason: fever Last Admin: 06/27/22 00:36 Dose: 650 mg Documented By: NUPUR Heparin Sodium (Porcine) 50 (units/ Sodium Chloride 5 ml) 0 units IVFLUSH TID [facility] Last Admin: 06/28/22 02:30 Dose: Not Given Documented By: NUPUR Non-Admin Reason: infiltrated Dicyclomine HCl (Dicyclomine Hcl 10 Mg Capsule) 20 mg PO TIDAC [facility] [place] Last Admin: 06/28/22 12:16 Dose: 20 mg Documented By: VITA Duloxetine HCl (Duloxetine Hcl 60 Mg Capsule.) 60 mg PO BEDTIME [facility] [place] Last Admin: 06/27/22 21:52 Dose: 60 mg Documented By: NUPUR Enoxaparin Sodium (Enoxaparin Sodium 100 Mg/Ml Syringe) 90 mg 1 mg/kg (90 mg) SUBCUT Q12H [facility] [place] Last Admin: 06/28/22 04:14 Dose: 90 mg Documented By: NUPUR Gabapentin (Gabapentin 300 Mg Capsule) 300 mg PO BEDTIME [facility] Last Admin: 06/27/22 21:52 Dose: 300 mg Documented By: NUPUR Hydromorphone HCl (Hydromorphone Hcl 0.5 Mg/0.5 Ml Syringe) 0.5 mg IVPUSH Q4H PRN; Protocol PRN Reason: mild pain Last Admin: 06/28/22 09:12 Dose: 0.5 mg Documented By: VITA Voriconazole 200 mg/ Sodium (Chloride) 100 mls @ 50 mls/hr IV Q12H [facility] Last Infusion: 06/28/22 12:44 Dose: 0 mls/hr Documented By: RYAN Meropenem 1 gm/ Sodium (Chloride) 100 mls @ 200 mls/hr IV Q8H [facility] Last Infusion: 06/28/22 12:44 Dose: 200 mls/hr Documented By: RYAN Vancomycin HCl 750 mg/ Sodium (Chloride) 265 mls @ 265 mls/hr IV Q12H [facility] Last Admin: 06/28/22 04:08 Dose: Not Given Documented By: NUPUR Non-Admin Reason: midline infiltrated Metoprolol Tartrate (Metoprolol Tartrate 100 Mg Tablet) 100 mg PO BID [facility] [place]; Protocol Last Admin: 06/28/22 08:32 Dose: 100 mg Documented By: VITA Nystatin (Nystatin Powder 15 Gm Bottle) 1 appl TOPICAL BID [facility] [place]; Protocol Last Admin: 06/28/22 12:46 Dose: Not Given Documented By: RYAN Non-Admin Reason: Previously Administered Ondansetron HCl (Ondansetron Hcl 4 Mg/2 Ml Vial) 4 mg IVPUSH Q6H PRN PRN Reason: Nausea Last Admin: 06/26/22 22:36 Dose: 4 mg Documented By: ASHLEY Pharmacy Consult (Consult Rx Perform Med Rec) 1 each MISCELLANE ONCE PRN PRN Reason: Consult order Pharmacy Consult (Consult Rx Vancomycin Dosing) 1 each MISCELLANE DAILY PRN PRN Reason: Consult order Sodium Chloride (0.9 % Sodium Chloride Flush 3 Ml Syringe) 3 ml IVFLUSH QSHIFT [facility] [place] Last Admin: 06/28/22 09:36 Dose: 3 ml Documented By: VITA Topiramate (Topiramate 100 Mg Tablet) 200 mg PO BID [facility] [place] Last Admin: 06/28/22 08:32 Dose: 200 mg Documented By: VITA Labs CBC & Chem 7: 06/29/22 06:13 06/29/22 06:13 Labs: Laboratory Results - last 24 hr 06/27/22 06/28/22 14:23 06:44 Estim Creat Clear Calc 143.7 Estimated GFR > 60 Random Vancomycin 17.7 Microbiology Microbiology Results: Microbiology 06/27/22 01:16 Blood Culture - Preliminary Blood - Venous No growth after 24 hours. 06/27/22 01:16 Blood Culture - Preliminary Blood - Venous No growth after 24 hours. 06/02/22 Unknown Fungal Identification - Preliminary Abscess Intra-abdominal Verónica dubliniensis 06/22/22 16:30 Gram Stain - Final Abdominal Fluid Routine Culture - Preliminary Verónica albicans Anaerobic Culture - Final NO GROWTH AFTER 5 DAYS Assessment and Plan (1) Leukocytosis: Status: Acute Plan d#42 62yo F admitted 05/18/22 with colitis/Crohn's flare. Flex sig showed perforation with abscess; taken to OR for ex-lap with colostomy after found to have extensive fecal soilage in peritoneum. Severely septic, sent to ICU intubated. Course since then complicated by multiple intra-abdominal abscesses causing fevers, with multiple drains placed by IR. Treated with metronidazole + meropenem and given TPN. Extubated 06/07/22, transitioned to tube feeds and then to oral diet. # septic shock secondary to perforated viscus with fecal peritonitis # candidiasis, peritoneal - s/p ex-lap/colostomy - got 3 wk of meropenem + metronidazole, ABX then stopped - extubated 06/07/22, given TPN, transitioned to tube feeds, then to oral feeds - abscess drainage x3; latest IR-guided drainage on 06/22 with removal of 500 mL of purulent fluid - opioids for pain control - IV meropenem, vancomycin, and voriconazole as per ID consultation; growing Verónica albicans and Verónica dubliniensis- susceptibilities requested. per ID, d/c meropenem and vancomycin today if no further evidence of bacterial infection; voriconazole d#01/05 [can change to oral upon eventual discharge] # UEDVT - at this point will anticoagulate to leave catheter in place, on enoxaparin 1 mg/kg q12h # hypoK - repleted # migraines - resolved after 1 dose SQ sumatriptan # recurrent toxic-metabolic encephalopathy - resolved, was likely due to fever # acute/chronic normocytic anemia - likely due to inflammation, no acute blood loss noted; given 1u pRBCs on 06/23/22 # SABINE due to septic shock/hypovolemia - resolved # hyperglycemia - due to critical illness; resolved # acute respiratory failure - extubated in ICU 06/07/22 # VTE ppx: LMWH # dispo: will need rehab In my clinical judgment, the patient requires continued hospitalization for the following reasons: fever, sepsis Quality Stroke Does the patient have a stroke diagnosis?: No VTE Prior VTE?: No VTE Risk Level:: Medical - moderate - high VTE Device Contraindication: N/A - Device Ordered VTE Drug Contraindication: N/A - Med Ordered
[2022-06-28] MEDS: Heparin Sodium,Porcine Flush 50 UNITS, 0.9 % Sodium Chloride Flush 5 ML IVFLUSH ×2 (13:44→21:16)
--- NOTE | 2022-06-28 14:09 | MHC.CLN ---
F/U DIET=REGULAR. SUPPLEMENT ENSURE TID PROVIDES ADDITIONAL 1050 KCALS, 60 G PROTEIN. INTAKE X 2 DAYS APPEARS VERY GOOD, 75-100%. PREFERS SMALLER PORTIONS. CONTINUE TO FOLLOW FOR INTAKE.
[2022-06-28 16:00] VITALS: BP 131/68; PULSE 94; RESP 19; TEMP 36.3
[2022-06-28 19:36] VITALS: BP 126/74; PULSE 102; RESP 19; TEMP 36
[2022-06-28] MEDS: Gabapentin 300 MG CAPSULE PO (21:16)
[2022-06-28] MEDS: DULoxetine HCl 60 MG CAPSULE.DR PO (21:16)
[2022-06-29] VITALS (8 sets, daily range): BP systolic 114–159; BP diastolic 58–79; PULSE 81–102; RESP 16–20; TEMP 36.3–36.8; O2SAT 91–100; BMI 36.3
[2022-06-29] MEDS: Nystatin Powder 15 GM BOTTLE 1 APPL TOPICAL ×2 (03:51→21:14)
[2022-06-29] MEDS: Enoxaparin Sodium 100 MG/ML SYRINGE 90 MG SUBCUT ×2 (05:34→17:18)
[2022-06-29 06:29] LABS: Hematocrit 27.4 % (37.0-47.0); Hemoglobin 8.9 g/dl (12.0-16.0); Mean Corpuscular HGB Conc 32.5 g/dl (31.0-35.0); Mean Corpuscular Hemoglobin 29.4 pg (27.0-33.0); Mean Corpuscular Volume 90.4 fL (80.0-98.0); Mean Platelet Volume 10.2 fL (9.4-12.3); Platelet Count 259 X10*3/uL (160-400); Red Blood Count 3.03 X10*6/uL (4.20-5.50); Red Cell Distribution Width 16.2 % (11.0-16.0); White Blood Count 5.8 X10*3/uL (4.8-10.8)
[2022-06-29 07:04] LABS: Anion Gap 14 (12-20); Blood Urea Nitrogen 9 mg/dL (9-16); C Reactive Protein 13.43 mg/dL (< or = 0.50); Calcium 8.7 mg/dL (8.4-10.2); Carbon Dioxide 25 mmol/L (22-29); Chloride 103 mmol/L (96-108); Creatinine Clr Calc Pharmacy 145.4; Estimated Glomerular Filt Rate > 60; Glucose Random 108 mg/dL (60-115); Magnesium 1.7 mg/dL (1.6-2.6); Potassium 3.4 mmol/L (3.3-5.1); Sodium 139 mmol/L (135-145)
[2022-06-29] MEDS: Dicyclomine HCl 10 MG CAPSULE 20 MG PO ×3 (07:30→17:16)
[2022-06-29] MEDS: Topiramate 100 MG TABLET 200 MG PO ×2 (08:52→21:00)
[2022-06-29] MEDS: Metoprolol Tartrate 100 MG TABLET PO ×2 (08:52→21:00)
--- NOTE | 2022-06-29 08:52 | PM.PNGS ---
Subjective Subjective Date of Service: 06/30/22 Interval history: Had is better oral intake yesterday Stoma functioning well Physical Exam Vital Signs: Vital Signs: Last Vital Signs Temp 97.5 F 06/29/22 08:00 Pulse 101 H 06/29/22 08:00 Resp 20 06/29/22 08:00 BP 123/79 06/29/22 08:00 Pulse Ox 98 06/29/22 08:00 O2 Del Method 06/29/22 08:00 O2 Flow Rate 2 06/29/22 08:00 FiO2 99 06/28/22 19:36 Oxygen Flow Rate 35 06/13/22 21:00 BMI result Body Mass Index 36.3 Const: General: no acute distress Resp: Other: Mildly short of breath Cardio: Rhythm: regular rhythm GI: Other: Soft, no guarding rebound, stoma functioning well good output Objective Data Active Medications Acetaminophen (Acetaminophen 325 Mg Tablet) 650 mg PO Q6H PRN PRN Reason: fever Last Admin: 06/27/22 00:36 Dose: 650 mg Documented By: NUPUR Heparin Sodium (Porcine) 50 (units/ Sodium Chloride 5 ml) 0 units IVFLUSH TID [facility] Last Admin: 06/28/22 21:16 Dose: 50 unit Documented By: MIS Dicyclomine HCl (Dicyclomine Hcl 10 Mg Capsule) 20 mg PO TIDAC [facility] Last Admin: 06/28/22 17:44 Dose: 20 mg Documented By: RYAN Duloxetine HCl (Duloxetine Hcl 60 Mg Capsule.Dr) 60 mg PO BEDTIME [facility] Last Admin: 06/28/22 21:16 Dose: 60 mg Documented By: MIS Enoxaparin Sodium (Enoxaparin Sodium 100 Mg/Ml Syringe) 90 mg 1 mg/kg (90 mg) SUBCUT Q12H [facility] Last Admin: 06/29/22 05:34 Dose: 90 mg Documented By: MIS Gabapentin (Gabapentin 300 Mg Capsule) 300 mg PO BEDTIME [facility] Last Admin: 06/28/22 21:16 Dose: 300 mg Documented By: MIS Hydromorphone HCl (Hydromorphone Hcl 0.5 Mg/0.5 Ml Syringe) 0.5 mg IVPUSH Q4H PRN; Protocol PRN Reason: mild pain Last Admin: 06/28/22 22:42 Dose: 0.5 mg Documented By: MIS Voriconazole 200 mg/ Sodium (Chloride) 100 mls @ 50 mls/hr IV Q12H [facility] Last Infusion: 06/29/22 01:02 Dose: 0 mls/hr Documented By: MIS Metoprolol Tartrate (Metoprolol Tartrate 100 Mg Tablet) 100 mg PO BID [facility]; Protocol Last Admin: 06/28/22 21:16 Dose: 100 mg Documented By: MIS Nystatin (Nystatin Powder 15 Gm Bottle) 1 appl TOPICAL BID [facility]; Protocol Last Admin: 06/29/22 03:51 Dose: 1 appl Documented By: MIS Ondansetron HCl (Ondansetron Hcl 4 Mg/2 Ml Vial) 4 mg IVPUSH Q6H PRN PRN Reason: Nausea Last Admin: 06/26/22 22:36 Dose: 4 mg Documented By: ASHLEY Pharmacy Consult (Consult Rx Perform Med Rec) 1 each MISCELLANE ONCE PRN PRN Reason: Consult order Pharmacy Consult (Consult Rx Vancomycin Dosing) 1 each MISCELLANE DAILY PRN PRN Reason: Consult order Sodium Chloride (0.9 % Sodium Chloride Flush 3 Ml Syringe) 3 ml IVFLUSH QSHIFT [facility] Last Admin: 06/29/22 01:01 Dose: Not Given Documented By: MIS Non-Admin Reason: IV Running Sumatriptan Succinate (Sumatriptan Succinate 6 Mg/0.5 Ml Vial) 6 mg SUBCUT DAILY PRN PRN Reason: migraine headache Topiramate (Topiramate 100 Mg Tablet) 200 mg PO BID [facility] Last Admin: 06/28/22 21:15 Dose: 200 mg Documented By: MIS Labs CBC & Chem 7: 06/30/22 08:20 06/30/22 08:20 Labs: Laboratory Results - last 24 hr 06/29/22 06/29/22 06:13 06:13 MCV 90.4 MCH 29.4 MCHC 32.5 RDW 16.2 H Plt Count 259 MPV 10.2 Absolute Nucleated RBC 0.000 Nucleated RBC % (auto) 0.0 Anion Gap 14 Estim Creat Clear Calc 145.4 Estimated GFR > 60 Random Glucose 108 Calcium 8.7 D Magnesium 1.7 C-Reactive Protein 13.43 H Microbiology Microbiology Results: Microbiology 06/24/22 06:14 Blood Culture - Final Blood - Venous No growth after 5 days. 06/24/22 06:14 Blood Culture - Final Blood - Venous No growth after 5 days. 06/27/22 01:16 Blood Culture - Preliminary Blood - Venous No growth after 48 hours. 06/27/22 01:16 Blood Culture - Preliminary Blood - Venous No growth after 48 hours. 06/02/22 Unknown Fungal Identification - Preliminary Abscess Intra-abdominal Verónica dubliniensis 06/22/22 16:30 Gram Stain - Final Abdominal Fluid Routine Culture - Preliminary Verónica albicans Anaerobic Culture - Final NO GROWTH AFTER 5 DAYS Procedures Date of Service Date of Service: 06/29/22 Arterial Line Size (Gauge): 16 Progress Note: A&P Assessment and plan (1) Status post colostomy: Status: Acute Assessment and Plan: Keep drains in place - output purulent although low Fever pattern Out of bed to chair Encourage oral intake Continue antibiotics including antifungal Time Spent With Patient Time: Total time spent is greater than 50% in coordination of care (as documented) at patient's floor/unit and/or counseling patient: Quality Stroke Does the patient have a stroke diagnosis?: No VTE Prior VTE?: No VTE Risk Level:: Medical - moderate - high VTE Device Contraindication: N/A - Device Ordered VTE Drug Contraindication: N/A - Med Ordered
[2022-06-29] MEDS: HYDROmorphone HCl 0.5 MG/0.5 ML SYRINGE IVPUSH ×4 (08:53→21:52)
[2022-06-29] MEDS: Heparin Sodium,Porcine Flush 50 UNITS, 0.9 % Sodium Chloride Flush 5 ML IVFLUSH ×3 (08:53→21:01)
[2022-06-29] MEDS: Voriconazole 200 MG in 0.9 % Sodium Chloride 100 ML 50 MG IV ×2 (08:55→21:00)
[2022-06-29 09:29] LABS: Procalcitonin 3.08 ng/mL
--- NOTE | 2022-06-29 10:27 | HO.PM.IMPN ---
Subjective Subjective Date of Service: 06/29/22 Interval History: afebrile moderate abd pain, controlled some visual hallucinations + disorientation, pre-dating initiation of voriconazole Review of Systems Review of Systems: Yes all other systems are reviewed and are negative Physical Exam Vital Signs: Vital Signs: Last Vital Signs Temp 97.5 F 06/29/22 08:00 Pulse 101 H 06/29/22 08:00 Resp 16 06/29/22 08:53 BP 123/79 06/29/22 08:00 Pulse Ox 98 06/29/22 08:00 O2 Del Method 06/29/22 08:00 O2 Flow Rate 2 06/29/22 08:00 FiO2 99 06/28/22 19:36 Oxygen Flow Rate 35 06/13/22 21:00 BMI result Body Mass Index 36.3 Gen: no acute distress HEENT: sclera anicteric, moist mucus membranes Neck: supple Lungs: clear to auscultation bilaterally Heart: regular, tachycardic, no murmurs Abd: soft, stoma with stool, non-tender, IR drains x3 with scant purulent liquid Ext: no edema, LUE midline catheter Skin: warm/well-perfused Neuro: alert and oriented x3, no focal findings Psych: appropriate affect Objective Data Active Medications Acetaminophen (Acetaminophen 325 Mg Tablet) 650 mg PO Q6H PRN PRN Reason: fever Last Admin: 06/27/22 00:36 Dose: 650 mg Documented By: NUPUR Heparin Sodium (Porcine) 50 (units/ Sodium Chloride 5 ml) 0 units IVFLUSH TID [facility] Last Admin: 06/29/22 08:53 Dose: 50 unit Documented By: VITA Dicyclomine HCl (Dicyclomine Hcl 10 Mg Capsule) 20 mg PO TIDAC [facility] Last Admin: 06/29/22 07:30 Dose: 20 mg Documented By: VITA Duloxetine HCl (Duloxetine Hcl 60 Mg Capsule.) 60 mg PO BEDTIME [facility] Last Admin: 06/28/22 21:16 Dose: 60 mg Documented By: MIS Enoxaparin Sodium (Enoxaparin Sodium 100 Mg/Ml Syringe) 90 mg 1 mg/kg (90 mg) SUBCUT Q12H [facility] Last Admin: 06/29/22 05:34 Dose: 90 mg Documented By: MIS Gabapentin (Gabapentin 300 Mg Capsule) 300 mg PO BEDTIME [facility] Last Admin: 06/28/22 21:16 Dose: 300 mg Documented By: MIS Hydromorphone HCl (Hydromorphone Hcl 0.5 Mg/0.5 Ml Syringe) 0.5 mg IVPUSH Q4H PRN; Protocol PRN Reason: mild pain Last Admin: 06/29/22 08:53 Dose: 0.5 mg Documented By: VITA Voriconazole 200 mg/ Sodium (Chloride) 100 mls @ 50 mls/hr IV Q12H [facility] Last Admin: 06/29/22 08:55 Dose: 50 mls/hr Documented By: VITA Metoprolol Tartrate (Metoprolol Tartrate 100 Mg Tablet) 100 mg PO BID [facility]; Protocol Last Admin: 06/29/22 08:52 Dose: 100 mg Documented By: VITA Nystatin (Nystatin Powder 15 Gm Bottle) 1 appl TOPICAL BID [facility]; Protocol Last Admin: 06/29/22 09:04 Dose: Not Given Documented By: RYAN Non-Admin Reason: Previously Administered Ondansetron HCl (Ondansetron Hcl 4 Mg/2 Ml Vial) 4 mg IVPUSH Q6H PRN PRN Reason: Nausea Last Admin: 06/26/22 22:36 Dose: 4 mg Documented By: ASHLEY Oxycodone HCl (Oxycodone Hcl Immed Release 5 Mg Tablet) 5 mg PO Q4H PRN PRN Reason: mod-sev pain Pharmacy Consult (Consult Rx Perform Med Rec) 1 each MISCELLANE ONCE PRN PRN Reason: Consult order Pharmacy Consult (Consult Rx Vancomycin Dosing) 1 each MISCELLANE DAILY PRN PRN Reason: Consult order Sodium Chloride (0.9 % Sodium Chloride Flush 3 Ml Syringe) 3 ml IVFLUSH QSHIFT [facility] Last Admin: 06/29/22 09:04 Dose: Not Given Documented By: RYAN Non-Admin Reason: IV Running Sumatriptan Succinate (Sumatriptan Succinate 6 Mg/0.5 Ml Vial) 6 mg SUBCUT DAILY PRN PRN Reason: migraine headache Topiramate (Topiramate 100 Mg Tablet) 200 mg PO BID [facility] Last Admin: 06/29/22 08:52 Dose: 200 mg Documented By: VITA Labs CBC & Chem 7: 06/29/22 06:13 06/29/22 06:13 Labs: Laboratory Results - last 24 hr 06/29/22 06/29/22 06/29/22 06:13 06:13 06:13 MCV 90.4 MCH 29.4 MCHC 32.5 RDW 16.2 H Plt Count 259 MPV 10.2 Absolute Nucleated RBC 0.000 Nucleated RBC % (auto) 0.0 Anion Gap 14 Estim Creat Clear Calc 145.4 Estimated GFR > 60 Random Glucose 108 Calcium 8.7 D Magnesium 1.7 C-Reactive Protein 13.43 H Procalcitonin 3.08 Microbiology Microbiology Results: Microbiology 06/24/22 06:14 Blood Culture - Final Blood - Venous No growth after 5 days. 06/24/22 06:14 Blood Culture - Final Blood - Venous No growth after 5 days. 06/27/22 01:16 Blood Culture - Preliminary Blood - Venous No growth after 48 hours. 06/27/22 01:16 Blood Culture - Preliminary Blood - Venous No growth after 48 hours. 06/02/22 Unknown Fungal Identification - Preliminary Abscess Intra-abdominal Verónica dubliniensis 06/22/22 16:30 Gram Stain - Final Abdominal Fluid Routine Culture - Preliminary Verónica albicans Anaerobic Culture - Final NO GROWTH AFTER 5 DAYS Assessment and Plan (1) Leukocytosis: Status: Acute Plan d#43 62yo F admitted 05/18/22 with colitis/Crohn's flare. Flex sig showed perforation with abscess; taken to OR for ex-lap with colostomy after found to have extensive fecal soilage in peritoneum. Severely septic, sent to ICU intubated. Course since then complicated by multiple intra-abdominal abscesses causing fevers, with multiple drains placed by IR. Treated with metronidazole + meropenem and given TPN. Extubated 06/07/22, transitioned to tube feeds and then to oral diet. # septic shock secondary to perforated viscus with fecal peritonitis # candidiasis, peritoneal - s/p ex-lap/colostomy - got 3 wk of meropenem + metronidazole, ABX then stopped - extubated 06/07/22, given TPN, transitioned to tube feeds, then to oral feeds - abscess drainage x3; latest IR-guided drainage on 06/22 with removal of 500 mL of purulent fluid; per Gen Surg continue to leave drains in place - opioids for pain control - ID consulted; growing Verónica albicans and Verónica dubliniensis- susceptibilities requested. d/c'ed meropenem and vancomycin 06/28/22 given no further evidence of bacterial infection; voriconazole d#02/04 [can change to oral upon eventual discharge] # UEDVT - anticoagulate to leave catheter in place, on enoxaparin 1 mg/kg q12h # hypoK - repleted # migraines - resolved after 1 dose SQ sumatriptan # recurrent toxic-metabolic encephalopathy - likely ICU-related delirium, Neuro consult pending, doubt voriconazole effect given hallucinations started before the med was started # acute/chronic normocytic anemia - likely due to inflammation, no acute blood loss noted; given 1u pRBCs on 06/23/22 # SABINE due to septic shock/hypovolemia - resolved # hyperglycemia - due to critical illness; resolved # acute respiratory failure - extubated in ICU 06/07/22 # VTE ppx: LMWH # dispo: will need rehab In my clinical judgment, the patient requires continued hospitalization for the following reasons: fever, sepsis Quality Stroke Does the patient have a stroke diagnosis?: No VTE Prior VTE?: No VTE Risk Level:: Medical - moderate - high VTE Device Contraindication: N/A - Device Ordered VTE Drug Contraindication: N/A - Med Ordered
[2022-06-29] MEDS: oxyCODONE HCl Immed Release 5 MG TABLET PO ×2 (11:45→15:45)
--- NOTE | 2022-06-29 13:44 | PM.GIPN ---
Subjective Subjective Date of Service: 06/29/22 Interval History: stood up today cramping is better Critical Care Time (minutes): 0 Physical Exam Vital Signs: Vital Signs: Last Vital Signs Temp 97.4 F 06/29/22 11:47 Pulse 81 06/29/22 11:47 Resp 20 06/29/22 11:47 BP 124/75 06/29/22 11:47 Pulse Ox 99 06/29/22 11:47 O2 Del Method 06/29/22 11:47 O2 Flow Rate 1.5 06/29/22 11:47 FiO2 99 06/28/22 19:36 Oxygen Flow Rate 35 06/13/22 21:00 BMI result Body Mass Index 36.3 GI: Other: abdomen is soft Objective Data Labs CBC & Chem 7: 06/29/22 06:13 06/29/22 06:13 Labs: Laboratory Results - last 24 hr 06/29/22 06/29/22 06/29/22 06:13 06:13 06:13 WBC 5.8 RBC 3.03 L Hgb 8.9 L Hct 27.4 L MCV 90.4 MCH 29.4 MCHC 32.5 RDW 16.2 H Plt Count 259 MPV 10.2 Absolute Nucleated RBC 0.000 Nucleated RBC % (auto) 0.0 Sodium 139 Potassium 3.4 Chloride 103 Carbon Dioxide 25 Anion Gap 14 BUN 9 Creatinine 0.44 L Estim Creat Clear Calc 145.4 Estimated GFR > 60 Random Glucose 108 Calcium 8.7 D Magnesium 1.7 C-Reactive Protein 13.43 H Procalcitonin 3.08 Microbiology Microbiology Results: Microbiology 06/24/22 06:14 Blood - Venous Blood Culture - Final No growth after 5 days. 06/24/22 06:14 Blood - Venous Blood Culture - Final No growth after 5 days. 06/27/22 01:16 Blood - Venous Blood Culture - Preliminary No growth after 48 hours. 06/27/22 01:16 Blood - Venous Blood Culture - Preliminary No growth after 48 hours. 06/02/22 Unknown Abscess Intra-abdominal Fungal Identification - Preliminary Verónica dubliniensis 06/22/22 16:30 Abdominal Fluid Gram Stain - Final 06/22/22 16:30 Abdominal Fluid Routine Culture - Preliminary Verónica albicans 06/22/22 16:30 Abdominal Fluid Anaerobic Culture - Final NO GROWTH AFTER 5 DAYS 06/03/22 15:28 Blood - Subclavian Blood Culture - Final No growth after 5 days. 06/03/22 06:15 Blood - Venous Blood Culture - Final No growth after 5 days. 06/03/22 06:15 Blood - Venous Blood Culture - Final No growth after 5 days. 06/02/22 Unknown Peritoneal Fluid Gram Stain - Final 06/02/22 Unknown Peritoneal Fluid Routine Culture - Final Verónica albicans 06/02/22 Unknown Peritoneal Fluid Anaerobic Culture - Final 05/29/22 15:14 Blood - Venous Blood Culture - Final No growth after 5 days. 05/29/22 15:13 Blood - Venous Blood Culture - Final No growth after 5 days. 05/29/22 05:14 Blood - Venous Blood Culture - Final No growth after 5 days. 05/29/22 05:14 Blood - Venous Blood Culture - Final No growth after 5 days. 06/02/22 Unknown Abscess Intra-abdominal Gram Stain - Final 06/02/22 Unknown Abscess Intra-abdominal Routine Culture - Final 06/02/22 Unknown Abscess Intra-abdominal Anaerobic Culture - Final 06/02/22 Unknown Abscess Intra-abdominal Gram Stain - Final 06/02/22 Unknown Abscess Intra-abdominal Routine Culture - Final 05/28/22 Unknown Peritoneal Fluid Gram Stain - Final 05/28/22 Unknown Peritoneal Fluid Anaerobic Culture - Final 05/28/22 Unknown Peritoneal Fluid Body Fluid Culture - Final Verónica dubliniensis 05/29/22 15:05 Sputum - Suctioned Gram Stain - Final 05/29/22 15:05 Sputum - Suctioned Sputum Culture - Final Verónica dubliniensis 05/28/22 16:47 Sputum - Suctioned Gram Stain - Final 05/28/22 16:47 Sputum - Suctioned Sputum Culture - Final Verónica albicans 05/23/22 Unknown Peritoneal Fluid Gram Stain - Final 05/23/22 Unknown Peritoneal Fluid Routine Culture - Final Escherichia coli 05/23/22 Unknown Peritoneal Fluid Anaerobic Culture - Final Clostridium perfringens Bacteroides thetaiotaomicron 05/19/22 08:49 Blood - Venous Blood Culture - Final No growth after 5 days. 05/19/22 08:49 Blood - Venous Blood Culture - Final No growth after 5 days. Procedures Date of Service Date of Service: 06/29/22 Arterial Line Size (Gauge): 16 Progress Note: A&P Assessment and plan (1) Perforated viscus: Status: Acute Assessment and Plan: slow improvement continue dicyclomine Time Spent With Patient Time: Total time spent is greater than 50% in coordination of care (as documented) at patient's floor/unit and/or counseling patient: Quality Stroke Does the patient have a stroke diagnosis?: No VTE Prior VTE?: No VTE Risk Level:: Medical - moderate - high VTE Device Contraindication: N/A - Device Ordered VTE Drug Contraindication: N/A - Med Ordered
[2022-06-29] MEDS: 0.9 % Sodium Chloride Flush 3 ML SYRINGE IVFLUSH ×2 (17:20→23:15)
[2022-06-29] MEDS: Gabapentin 300 MG CAPSULE PO (21:00)
[2022-06-29] MEDS: DULoxetine HCl 60 MG CAPSULE.DR PO (21:00)
[2022-06-30] VITALS (8 sets, daily range): BP systolic 110–173; BP diastolic 63–86; PULSE 111–141; RESP 16–22; TEMP 36.4–38.8; O2SAT 92–98; BMI 36.8
[2022-06-30] MEDS: HYDROmorphone HCl 0.5 MG/0.5 ML SYRINGE IVPUSH ×3 (02:31→18:35)
[2022-06-30] MEDS: Enoxaparin Sodium 100 MG/ML SYRINGE 90 MG SUBCUT ×2 (05:04→18:45)
[2022-06-30] MEDS: ondansetron HCL 4 MG/2 ML VIAL IVPUSH (05:04)
[2022-06-30] MEDS: oxyCODONE HCl Immed Release 5 MG TABLET PO ×2 (06:04→15:06)
--- NOTE | 2022-06-30 06:22 | PM.EVENT ---
Event Note Date of Service: 06/30/22 Event Note: pt febrile and tachycardic this am. will obtain bcx , give tylenol, lactic acid
[2022-06-30] MEDS: Acetaminophen 325 MG TABLET 650 MG PO (06:27)
[2022-06-30] MEDS: Dicyclomine HCl 10 MG CAPSULE 20 MG PO ×3 (06:40→18:45)
[2022-06-30 07:30] LABS: Lactic Acid 0.8 mmol/L (0.5-2.0)
[2022-06-30 08:23] LABS: MANUAL DIFF FLAG NO
[2022-06-30 08:34] LABS: Basophils Absolute Auto 0.1 X10*3/uL (0.0-0.2); Basophils Percent Auto 0.6 % (0-2); Hematocrit 32.4 % (37.0-47.0); Hemoglobin 10.6 g/dl (12.0-16.0); Imm Gran Abs Auto 0.11 X10*3/uL (0.00-0.03); Imm Gran Pct Auto 0.9 % (0.0-0.4); Lymphocytes Absolute Auto 1.1 X10*3/uL (1.2-4.9); Lymphocytes Percent Auto 8.6 % (20-40); Mean Corpuscular HGB Conc 32.7 g/dl (31.0-35.0); Mean Corpuscular Hemoglobin 29.1 pg (27.0-33.0); Mean Platelet Volume 10.2 fL (9.4-12.3); Monocytes Absolute Auto 0.3 X10*3/uL (0.1-1.2); Monocytes Percent Auto 2.4 % (2-11); Neutrophils Absolute Auto 11.3 x10*3/uL (2.0-8.3); Neutrophils Percent Auto 87.5 % (45-73); Platelet Count 324 X10*3/uL (160-400); Red Blood Count 3.64 X10*6/uL (4.20-5.50); Red Cell Distribution Width 16.8 % (11.0-16.0); White Blood Count 12.9 X10*3/uL (4.8-10.8)
[2022-06-30] MEDS: Metoprolol Tartrate 100 MG TABLET PO ×2 (08:56→21:35)
[2022-06-30] MEDS: Topiramate 100 MG TABLET 200 MG PO ×2 (08:56→21:35)
[2022-06-30] MEDS: Heparin Sodium,Porcine Flush 50 UNITS, 0.9 % Sodium Chloride Flush 5 ML IVFLUSH ×2 (08:56→21:35)
--- NOTE | 2022-06-30 09:02 | PM.PNGS ---
Subjective Subjective Date of Service: 06/30/22 Interval history: had some oral intake yesterday stoma continues to function HR high this AM Physical Exam Vital Signs: Vital Signs: Last Vital Signs Temp 99.0 F 06/30/22 07:14 Pulse 141 H 06/30/22 07:14 Resp 18 06/30/22 07:14 BP 129/74 06/30/22 07:14 Pulse Ox 93 06/30/22 07:14 O2 Del Method 06/30/22 07:14 O2 Flow Rate 92 06/29/22 23:35 FiO2 99 06/28/22 19:36 Oxygen Flow Rate 35 06/13/22 21:00 BMI result Body Mass Index 36.8 Const: Other: some SOB Resp: Other: some SOB Cardio: Rate: tachycardic GI: Other: abd soft, stoma functioning, drains in place - 2 JPs with very scanty output Objective Data Active Medications Acetaminophen (Acetaminophen 325 Mg Tablet) 650 mg PO Q6H PRN PRN Reason: fever Last Admin: 06/30/22 06:27 Dose: 650 mg Documented By: DAVID Heparin Sodium (Porcine) 50 (units/ Sodium Chloride 5 ml) 0 units IVFLUSH TID [facility] Last Admin: 06/30/22 08:56 Dose: 50 unit Documented By: DOBROB Dicyclomine HCl (Dicyclomine Hcl 10 Mg Capsule) 20 mg PO TIDAC [facility] Last Admin: 06/30/22 06:40 Dose: 20 mg Documented By: DAVID Duloxetine HCl (Duloxetine Hcl 60 Mg Capsule.) 60 mg PO BEDTIME [facility] Last Admin: 06/29/22 21:00 Dose: 60 mg Documented By: DAVID Enoxaparin Sodium (Enoxaparin Sodium 100 Mg/Ml Syringe) 90 mg 1 mg/kg (90 mg) SUBCUT Q12H [facility] Last Admin: 06/30/22 05:04 Dose: 90 mg Documented By: DAVID Gabapentin (Gabapentin 300 Mg Capsule) 300 mg PO BEDTIME [facility] Last Admin: 06/29/22 21:00 Dose: 300 mg Documented By: DAVID Hydromorphone HCl (Hydromorphone Hcl 0.5 Mg/0.5 Ml Syringe) 0.5 mg IVPUSH Q4H PRN; Protocol PRN Reason: mild pain Last Admin: 06/30/22 02:31 Dose: 0.5 mg Documented By: DAVID Voriconazole 200 mg/ Sodium (Chloride) 100 mls @ 50 mls/hr IV Q12H [facility] Last Infusion: 06/29/22 23:16 Dose: 0 mls/hr Documented By: DAVID Sodium Chloride (Ns) 1,000 mls @ 100 mls/hr IVCONT .Q10H [facility] Meropenem 1 gm/ Sodium (Chloride) 100 mls @ 200 mls/hr IV Q8H [facility] Vancomycin HCl (Vancomycin/Ns) 2,000 mg in 520 mls @ 260 mls/hr IV ONCE ONE Stop: 06/30/22 11:59 Metoprolol Tartrate (Metoprolol Tartrate 100 Mg Tablet) 100 mg PO BID [facility]; Protocol Last Admin: 06/30/22 08:56 Dose: 100 mg Documented By: RYAN Non-Formulary Medication (Ajovy) 1.5 ml SUBCUT Q30D [facility] Nystatin (Nystatin Powder 15 Gm Bottle) 1 appl TOPICAL BID [facility]; Protocol Last Admin: 06/29/22 21:14 Dose: 1 appl Documented By: DAVID Ondansetron HCl (Ondansetron Hcl 4 Mg/2 Ml Vial) 4 mg IVPUSH Q6H PRN PRN Reason: Nausea Last Admin: 06/30/22 05:04 Dose: 4 mg Documented By: DAVID Oxycodone HCl (Oxycodone Hcl Immed Release 5 Mg Tablet) 5 mg PO Q4H PRN PRN Reason: mod-sev pain Last Admin: 06/30/22 06:04 Dose: 5 mg Documented By: DAVID Pharmacy Consult (Consult Rx Perform Med Rec) 1 each MISCELLANE ONCE PRN PRN Reason: Consult order Pharmacy Consult (Consult Rx Vancomycin Dosing) 1 each MISCELLANE DAILY PRN PRN Reason: Consult order Pharmacy Consult (Consult Rx Vancomycin Dosing) 1 each MISCELLANE NOW STA Stop: 06/30/22 08:19 Sodium Chloride (0.9 % Sodium Chloride Flush 3 Ml Syringe) 3 ml IVFLUSH QSHIFT [facility] Last Admin: 06/30/22 08:58 Dose: Not Given Documented By: RYAN Non-Admin Reason: Previously Administered Sumatriptan Succinate (Sumatriptan Succinate 6 Mg/0.5 Ml Vial) 6 mg SUBCUT DAILY PRN PRN Reason: migraine headache Topiramate (Topiramate 100 Mg Tablet) 200 mg PO BID [facility] Last Admin: 06/30/22 08:56 Dose: 200 mg Documented By: RYAN Labs CBC & Chem 7: 06/30/22 08:20 06/30/22 08:20 Labs: Laboratory Results - last 24 hr 06/29/22 06/30/22 06/30/22 06:13 07:05 08:20 MCV 89.0 MCH 29.1 MCHC 32.7 RDW 16.8 H Plt Count 324 D MPV 10.2 Immature Gran % (Auto) 0.9 H Neut % (Auto) 87.5 H Lymph % (Auto) 8.6 L Lipscomb % (Auto) 2.4 Eos % (Auto) 0.0 Baso % (Auto) 0.6 Lymph # (Auto) 1.1 L Lipscomb # (Auto) 0.3 Eos # (Auto) 0.0 Baso # (Auto) 0.1 Abs Immat Gran (auto) 0.11 H Absolute Neuts (auto) 11.3 H Absolute Nucleated RBC 0.000 Nucleated RBC % (auto) 0.0 Lactic Acid 0.8 Procalcitonin 3.08 Microbiology Microbiology Results: Microbiology 06/24/22 06:14 Blood Culture - Final Blood - Venous No growth after 5 days. 06/24/22 06:14 Blood Culture - Final Blood - Venous No growth after 5 days. Procedures Date of Service Date of Service: 06/30/22 Arterial Line Size (Gauge): 16 Progress Note: A&P Assessment and plan (1) Status post colostomy: Status: Acute Assessment and Plan: has tachy cardia and some SOB this AM abd remains soft and benign stoma functioning fever pattern has been improving, although wth spike of 101.8 last night awaiting re-scan for new collections Meropenem lesliey was dc'ed- should continue Time Spent With Patient Time: Total time spent is greater than 50% in coordination of care (as documented) at patient's floor/unit and/or counseling patient: Quality Stroke Does the patient have a stroke diagnosis?: No VTE Prior VTE?: No VTE Risk Level:: Medical - moderate - high VTE Device Contraindication: N/A - Device Ordered VTE Drug Contraindication: N/A - Med Ordered
[2022-06-30 09:03] LABS: Alanine Aminotransferase 9 U/L (0-31); Albumin Level 2.7 g/dL (3.5-5.0); Alkaline Phosphatase 138 U/L (39-117); Anion Gap 15 (12-20); Aspartate Amino Transferase 17 U/L (5-31); Bilirubin Total 0.5 mg/dL (0.0-1.0); Blood Urea Nitrogen 11 mg/dL (9-16); Calcium 8.4 mg/dL (8.4-10.2); Carbon Dioxide 21 mmol/L (22-29); Chloride 103 mmol/L (96-108); Creatinine Clr Calc Pharmacy 123.9; Estimated Glomerular Filt Rate > 60; Glucose Random 145 mg/dL (60-115); Potassium 3.7 mmol/L (3.3-5.1); Sodium 135 mmol/L (135-145); Total Protein 5.8 g/dL (6.5-8.0)
[2022-06-30] MEDS: 0.9 % Sodium Chloride 1,000 ML 100 ML IVCONT (09:25)
[2022-06-30] MEDS: Nystatin Powder 15 GM BOTTLE 1 APPL TOPICAL ×2 (09:27→21:36)
--- NOTE | 2022-06-30 09:38 | HE.PHANOTE ---
RE CHRISTINAO PATIENT WAS ON VANCOMYCIN PREVIOUSLY (SEE NOTE FROM 06/27). PATIENT BECAME TACHYCARDIC, SPIKED FEVER, AND HAD LEFT SHIFT ON CBC. RELOADING PATIENT WITH 2000MG FOLLOWED BY 750MG Q12H. PER INSIGHT, THAT WILL YIELD A SUBTHERAPUETIC AUC, HOWEVER, PATIENT WAS ON 1000MG Q12H WHICH RESULTED IN A TROUGH OF 17.7. THANKS SARAH
--- NOTE | 2022-06-30 10:53 | MHC.CLN ---
F/U PO INTAKE 50-100% DIET RX: REGULAR-APPROPRIATE PT PREFERS SMALLER PORTIONS WITH MEALS PT ACCEPTING AND DRINKING ENSURE VANILLA TID PROVIDES 1050KCALS, 60G PROTEIN CONTINUE TO MONITOR PO INTAKE CLOSELY
--- NOTE | 2022-06-30 11:00 | P.PNIM_ITS ---
Subjective Subjective Date of Service: 06/30/22 Interval History: febrile to 103 now feels sleepy c/o worsening abd pain Physical Exam Vital Signs: Vital Signs: Last Vital Signs Temp 99.0 F 06/30/22 07:14 Pulse 141 H 06/30/22 09:19 Resp 18 06/30/22 07:14 BP 129/74 06/30/22 09:19 Pulse Ox 93 06/30/22 09:19 O2 Del Method 06/30/22 07:14 O2 Flow Rate 92 06/29/22 23:35 FiO2 99 06/28/22 19:36 Oxygen Flow Rate 35 06/13/22 21:00 BMI result Body Mass Index 36.8 Gen: ill-appearing HEENT: sclera anicteric, moist mucus membranes Neck: supple Lungs: clear to auscultation bilaterally Heart: regular, tachycardic, no murmurs Abd: soft, stoma with stool, non-tender, IR drains x3 with scant purulent liquid Ext: no edema, LUE midline catheter Skin: warm/well-perfused Neuro: alert and oriented x3, no focal findings Psych: appropriate affect Objective Data Active Medications Acetaminophen (Acetaminophen 325 Mg Tablet) 650 mg PO Q6H PRN PRN Reason: fever Last Admin: 06/30/22 06:27 Dose: 650 mg Documented By: DAVID Heparin Sodium (Porcine) 50 (units/ Sodium Chloride 5 ml) 0 units IVFLUSH TID [facility] Last Admin: 06/30/22 08:56 Dose: 50 unit Documented By: DOBROB Dicyclomine HCl (Dicyclomine Hcl 10 Mg Capsule) 20 mg PO TIDAC [facility] Last Admin: 06/30/22 06:40 Dose: 20 mg Documented By: DAVID Duloxetine HCl (Duloxetine Hcl 60 Mg Capsule.Dr) 60 mg PO BEDTIME [facility] Last Admin: 06/29/22 21:00 Dose: 60 mg Documented By: DAVID Enoxaparin Sodium (Enoxaparin Sodium 100 Mg/Ml Syringe) 90 mg 1 mg/kg (90 mg) SUBCUT Q12H [facility] Last Admin: 06/30/22 05:04 Dose: 90 mg Documented By: DAVID Gabapentin (Gabapentin 300 Mg Capsule) 300 mg PO BEDTIME [facility] Last Admin: 06/29/22 21:00 Dose: 300 mg Documented By: DAVID Hydromorphone HCl (Hydromorphone Hcl 0.5 Mg/0.5 Ml Syringe) 0.5 mg IVPUSH Q4H PRN; Protocol PRN Reason: mild pain Last Admin: 06/30/22 02:31 Dose: 0.5 mg Documented By: DAVID Voriconazole 200 mg/ Sodium (Chloride) 100 mls @ 50 mls/hr IV Q12H [facility] Last Infusion: 06/29/22 23:16 Dose: 0 mls/hr Documented By: DAVID Sodium Chloride (Ns) 1,000 mls @ 100 mls/hr IVCONT .Q10H [facility] Last Admin: 06/30/22 09:25 Dose: 100 mls/hr Documented By: RYAN Meropenem 1 gm/ Sodium (Chloride) 100 mls @ 200 mls/hr IV Q8H [facility] Last Infusion: 06/30/22 10:55 Dose: 0 mls/hr Documented By: RYAN Vancomycin HCl (Vancomycin/Ns) 2,000 mg in 520 mls @ 260 mls/hr IV ONCE ONE Stop: 06/30/22 11:59 Vancomycin HCl 750 mg/ Sodium (Chloride) 265 mls @ 265 mls/hr IV Q12H [facility] Metoprolol Tartrate (Metoprolol Tartrate 100 Mg Tablet) 100 mg PO BID [facility]; Protocol Last Admin: 06/30/22 08:56 Dose: 100 mg Documented By: RYAN Non-Formulary Medication (Ajovy) 1.5 ml SUBCUT Q30D [facility] Nystatin (Nystatin Powder 15 Gm Bottle) 1 appl TOPICAL BID [facility]; Protocol Last Admin: 06/30/22 09:27 Dose: 1 appl Documented By: RYAN Ondansetron HCl (Ondansetron Hcl 4 Mg/2 Ml Vial) 4 mg IVPUSH Q6H PRN PRN Reason: Nausea Last Admin: 06/30/22 05:04 Dose: 4 mg Documented By: DAVID Oxycodone HCl (Oxycodone Hcl Immed Release 5 Mg Tablet) 5 mg PO Q4H PRN PRN Reason: mod-sev pain Last Admin: 06/30/22 06:04 Dose: 5 mg Documented By: DAVID Pharmacy Consult (Consult Rx Perform Med Rec) 1 each MISCELLANE ONCE PRN PRN Reason: Consult order Pharmacy Consult (Consult Rx Vancomycin Dosing) 1 each MISCELLANE DAILY PRN PRN Reason: Consult order Sodium Chloride (0.9 % Sodium Chloride Flush 3 Ml Syringe) 3 ml IVFLUSH QSHIFT [facility] [place] Last Admin: 06/30/22 08:58 Dose: Not Given Documented By: RYAN Non-Admin Reason: Previously Administered Sumatriptan Succinate (Sumatriptan Succinate 6 Mg/0.5 Ml Vial) 6 mg SUBCUT DAILY PRN PRN Reason: migraine headache Topiramate (Topiramate 100 Mg Tablet) 200 mg PO BID [facility] [place] Last Admin: 06/30/22 08:56 Dose: 200 mg Documented By: RYAN Labs CBC & Chem 7: 06/30/22 08:20 06/30/22 08:20 Labs: Laboratory Results - last 24 hr 06/30/22 06/30/22 06/30/22 07:05 08:20 08:20 MCV 89.0 MCH 29.1 MCHC 32.7 RDW 16.8 H Plt Count 324 D MPV 10.2 Immature Gran % (Auto) 0.9 H Neut % (Auto) 87.5 H Lymph % (Auto) 8.6 L [place] % (Auto) 2.4 Eos % (Auto) 0.0 Baso % (Auto) 0.6 Lymph # (Auto) 1.1 L [place] # (Auto) 0.3 Eos # (Auto) 0.0 Baso # (Auto) 0.1 Abs Immat Gran (auto) 0.11 H Absolute Neuts (auto) 11.3 H Absolute Nucleated RBC 0.000 Nucleated RBC % (auto) 0.0 Anion Gap 15 Estim Creat Clear Calc 123.9 Estimated GFR > 60 Random Glucose 145 H Lactic Acid 0.8 Calcium 8.4 Total Bilirubin 0.5 AST 17 D ALT 9 Alkaline Phosphatase 138 H D Total Protein 5.8 L Albumin 2.7 L Microbiology Microbiology Results: Microbiology 06/24/22 06:14 Blood Culture - Final Blood - Venous No growth after 5 days. 06/24/22 06:14 Blood Culture - Final Blood - Venous No growth after 5 days. Assessment and Plan (1) Leukocytosis: Status: Acute Plan d#44 62yo F admitted 05/18/22 with colitis/Crohn's flare. Flex sig showed perforation with abscess; taken to OR for ex-lap with colostomy after found to have extensive fecal soilage in peritoneum. Severely septic, sent to ICU intubated. Course since then complicated by multiple intra-abdominal abscesses causing fevers, with multiple drains placed by IR. Treated with metronidazole + meropenem and given TPN. Extubated 06/07/22, transitioned to tube feeds and then to oral diet. # septic shock secondary to perforated viscus with fecal peritonitis # candidiasis, peritoneal - s/p ex-lap/colostomy - got 3 wk of meropenem + metronidazole, ABX then stopped - extubated 06/07/22, given TPN, transitioned to tube feeds, then to oral feeds - abscess drainage x3; latest IR-guided drainage on 06/22 with removal of 500 mL of purulent fluid; per Gen Surg continue to leave drains in place - opioids for pain control - ID consulted; growing Verónica albicans and Verónica dubliniensis- susceptibilities requested. d/c'ed meropenem and vancomycin 06/28/22; will restart both today given increasing WBCs and fever; also recheck CT A/P - voriconazole d#03/07 [can change to oral upon eventual discharge] # UEDVT - anticoagulating to leave catheter in place, on enoxaparin 1 mg/kg q12h # hypoK - repleted # migraines - resolved after 1 dose SQ sumatriptan # recurrent toxic-metabolic encephalopathy - likely ICU-related delirium, Neuro consult pending, doubt voriconazole effect given hallucinations started before the med was started # acute/chronic normocytic anemia - likely due to inflammation, no acute blood loss noted; given 1u pRBCs on 06/23/22 # SABINE due to septic shock/hypovolemia - resolved # hyperglycemia - due to critical illness; resolved # acute respiratory failure - extubated in ICU 06/07/22 # VTE ppx: LMWH # dispo: will need rehab In my clinical judgment, the patient requires continued hospitalization for the following reasons: fever, sepsis Quality Stroke Does the patient have a stroke diagnosis?: No VTE Prior VTE?: No VTE Risk Level:: Medical - moderate - high VTE Device Contraindication: N/A - Device Ordered VTE Drug Contraindication: N/A - Med Ordered
--- NOTE | 2022-06-30 11:14 | MHC.CM.PN ---
PT REMAINS FEBRILE, NO PLAN FOR DC AT THIS TIME PER INTERDISCIPLINARY ROUNDS, UPDATES SENT TO REFERRALS. CM WILL CONTINUE TO FOLLOW FOR DC NEEDS.
[2022-06-30] MEDS: 0.9 % Sodium Chloride 1,000 ML 999 ML IV (14:01)
[2022-06-30] MEDS: Voriconazole 200 MG in 0.9 % Sodium Chloride 100 ML 50 MG IV ×2 (14:01→21:36)
--- NOTE | 2022-06-30 14:39 | PM.GIPN ---
Subjective Subjective Date of Service: 06/30/22 Interval History: sleepy Critical Care Time (minutes): 0 Physical Exam Vital Signs: Vital Signs: Last Vital Signs Temp 99.5 F 06/30/22 12:00 Pulse 116 H 06/30/22 12:00 Resp 17 06/30/22 12:00 BP 135/75 06/30/22 12:00 Pulse Ox 98 06/30/22 12:00 O2 Del Method 06/30/22 12:00 O2 Flow Rate 92 06/29/22 23:35 FiO2 99 06/28/22 19:36 Oxygen Flow Rate 35 06/13/22 21:00 BMI result Body Mass Index 36.8 Const: Other: pale GI: Other: abdomen is soft Objective Data Labs CBC & Chem 7: 06/30/22 08:20 06/30/22 08:20 Labs: Laboratory Results - last 24 hr 06/30/22 06/30/22 06/30/22 07:05 08:20 08:20 WBC 12.9 H RBC 3.64 L D Hgb 10.6 L Hct 32.4 L MCV 89.0 MCH 29.1 MCHC 32.7 RDW 16.8 H Plt Count 324 D MPV 10.2 Immature Gran % (Auto) 0.9 H Neut % (Auto) 87.5 H Lymph % (Auto) 8.6 L [place] % (Auto) 2.4 Eos % (Auto) 0.0 Baso % (Auto) 0.6 Lymph # (Auto) 1.1 L [place] # (Auto) 0.3 Eos # (Auto) 0.0 Baso # (Auto) 0.1 Abs Immat Gran (auto) 0.11 H Absolute Neuts (auto) 11.3 H Absolute Nucleated RBC 0.000 Nucleated RBC % (auto) 0.0 Sodium 135 Potassium 3.7 Chloride 103 Carbon Dioxide 21 L Anion Gap 15 BUN 11 Creatinine 0.52 Estim Creat Clear Calc 123.9 Estimated GFR > 60 Random Glucose 145 H Lactic Acid 0.8 Calcium 8.4 Total Bilirubin 0.5 AST 17 D ALT 9 Alkaline Phosphatase 138 H D Total Protein 5.8 L Albumin 2.7 L Microbiology Microbiology Results: Microbiology 06/24/22 06:14 Blood - Venous Blood Culture - Final No growth after 5 days. 06/24/22 06:14 Blood - Venous Blood Culture - Final No growth after 5 days. 06/27/22 01:16 Blood - Venous Blood Culture - Preliminary No growth after 48 hours. 06/27/22 01:16 Blood - Venous Blood Culture - Preliminary No growth after 48 hours. 06/02/22 Unknown Abscess Intra-abdominal Fungal Identification - Preliminary Verónica dubliniensis 06/22/22 16:30 Abdominal Fluid Gram Stain - Final 06/22/22 16:30 Abdominal Fluid Routine Culture - Preliminary Verónica albicans 06/22/22 16:30 Abdominal Fluid Anaerobic Culture - Final NO GROWTH AFTER 5 DAYS 06/03/22 15:28 Blood - Subclavian Blood Culture - Final No growth after 5 days. 06/03/22 06:15 Blood - Venous Blood Culture - Final No growth after 5 days. 06/03/22 06:15 Blood - Venous Blood Culture - Final No growth after 5 days. 06/02/22 Unknown Peritoneal Fluid Gram Stain - Final 06/02/22 Unknown Peritoneal Fluid Routine Culture - Final Verónica albicans 06/02/22 Unknown Peritoneal Fluid Anaerobic Culture - Final 05/29/22 15:14 Blood - Venous Blood Culture - Final No growth after 5 days. 05/29/22 15:13 Blood - Venous Blood Culture - Final No growth after 5 days. 05/29/22 05:14 Blood - Venous Blood Culture - Final No growth after 5 days. 05/29/22 05:14 Blood - Venous Blood Culture - Final No growth after 5 days. 06/02/22 Unknown Abscess Intra-abdominal Gram Stain - Final 06/02/22 Unknown Abscess Intra-abdominal Routine Culture - Final 06/02/22 Unknown Abscess Intra-abdominal Anaerobic Culture - Final 06/02/22 Unknown Abscess Intra-abdominal Gram Stain - Final 06/02/22 Unknown Abscess Intra-abdominal Routine Culture - Final 05/28/22 Unknown Peritoneal Fluid Gram Stain - Final 05/28/22 Unknown Peritoneal Fluid Anaerobic Culture - Final 05/28/22 Unknown Peritoneal Fluid Body Fluid Culture - Final Verónica dubliniensis 05/29/22 15:05 Sputum - Suctioned Gram Stain - Final 05/29/22 15:05 Sputum - Suctioned Sputum Culture - Final Verónica dubliniensis 05/28/22 16:47 Sputum - Suctioned Gram Stain - Final 05/28/22 16:47 Sputum - Suctioned Sputum Culture - Final Verónica albicans 05/23/22 Unknown Peritoneal Fluid Gram Stain - Final 05/23/22 Unknown Peritoneal Fluid Routine Culture - Final Escherichia coli 05/23/22 Unknown Peritoneal Fluid Anaerobic Culture - Final Clostridium perfringens Bacteroides thetaiotaomicron 05/19/22 08:49 Blood - Venous Blood Culture - Final No growth after 5 days. 05/19/22 08:49 Blood - Venous Blood Culture - Final No growth after 5 days. Procedures Date of Service Date of Service: 06/30/22 Arterial Line Size (Gauge): 16 Progress Note: A&P Assessment and plan (1) Perforated viscus: Status: Acute Assessment and Plan: ct scan pending continue present treatment. Time Spent With Patient Time: Total time spent is greater than 50% in coordination of care (as documented) at patient's floor/unit and/or counseling patient: Quality Stroke Does the patient have a stroke diagnosis?: No VTE Prior VTE?: No VTE Risk Level:: Medical - moderate - high VTE Device Contraindication: N/A - Device Ordered VTE Drug Contraindication: N/A - Med Ordered
--- NOTE | 2022-06-30 14:58 | PM.EVENT ---
Event Note Date of Service: 07/03/22 Event Note: Repeat CT scan not done yet Apparently patient was brought down earlier but IV access was not working Left arm with PICC line was inserted is now swollen Would do CT scan without IV contrast if IV cannot be given Abdomen otherwise remained soft Stoma with good output Family at bedside
--- NOTE | 2022-06-30 16:34 | PM.EVENT ---
Event Note Date of Service: 06/30/22 Event Note: dw CT films with radiologist- likely diffuse colitis check stools for C diff start Dificid uncertain if this is causing her fever - abdl exam very benign new PICC line in place for IV access
[2022-06-30] MEDS: Lidocaine HCl 1 % MPF 5 ML VIAL 6 ML SUBCUT (16:58)
[2022-06-30] MEDS: 0.9 % Sodium Chloride Flush 3 ML SYRINGE IVFLUSH ×2 (18:45→21:36)
[2022-06-30] MEDS: Fidaxomicin 200 MG TABLET PO (19:46)
[2022-06-30 21:04] LABS: Leukocytes Stool Qualitative NEGATIVE (NEGATIVE)
[2022-06-30 21:23] LABS: CDiff Gene PCR POSITIVE (Negative)
[2022-06-30] MEDS: Gabapentin 300 MG CAPSULE PO (21:35)
[2022-06-30] MEDS: DULoxetine HCl 60 MG CAPSULE.DR PO (21:35)
[2022-06-30 22:19] LABS: CDIFF Internal ctrl Dots and bkg OK (V)
[2022-06-30 22:31] LABS: CDiff Toxin Positive (Negative)
[2022-07-01] VITALS (12 sets, daily range): BP systolic 87–119; BP diastolic 44–64; PULSE 98–122; RESP 15–20; TEMP 36.6–37.2; O2SAT 95–100; BMI 33.1
[2022-07-01] MEDS: HYDROmorphone HCl 0.5 MG/0.5 ML SYRINGE IVPUSH ×5 (00:36→22:31)
[2022-07-01] MEDS: 0.9 % Sodium Chloride 1,000 ML 100 ML IVCONT ×2 (03:05→18:07)
[2022-07-01] MEDS: Enoxaparin Sodium 100 MG/ML SYRINGE 90 MG SUBCUT ×2 (03:09→18:25)
[2022-07-01] MEDS: Fidaxomicin 200 MG TABLET PO ×2 (06:05→18:24)
[2022-07-01 07:14] LABS: Hematocrit 27.8 % (37.0-47.0); Mean Corpuscular HGB Conc 32.4 g/dl (31.0-35.0); Mean Corpuscular Hemoglobin 29.3 pg (27.0-33.0); Mean Corpuscular Volume 90.6 fL (80.0-98.0); Mean Platelet Volume 10.4 fL (9.4-12.3); Platelet Count 362 X10*3/uL (160-400); Red Blood Count 3.07 X10*6/uL (4.20-5.50); Red Cell Distribution Width 17.2 % (11.0-16.0)
[2022-07-01 07:52] LABS: White Blood Count 33.5 X10*3/uL (4.8-10.8)
[2022-07-01 08:01] LABS: Alanine Aminotransferase 7 U/L (0-31); Albumin Level 2.3 g/dL (3.5-5.0); Anion Gap 16 (12-20); Bilirubin Total 0.3 mg/dL (0.0-1.0); C Reactive Protein 29.98 mg/dL (< or = 0.50); Calcium 7.9 mg/dL (8.4-10.2); Carbon Dioxide 21 mmol/L (22-29); Chloride 103 mmol/L (96-108); Creatinine Clr Calc Pharmacy 117.2; Estimated Glomerular Filt Rate > 60; Glucose Random 149 mg/dL (60-115); Potassium 3.7 mmol/L (3.3-5.1); Sodium 136 mmol/L (135-145); Total Protein 4.8 g/dL (6.5-8.0)
[2022-07-01] MEDS: Topiramate 100 MG TABLET 200 MG PO ×2 (08:09→21:28)
[2022-07-01] MEDS: Dicyclomine HCl 10 MG CAPSULE 20 MG PO ×3 (08:09→18:25)
[2022-07-01] MEDS: Metoprolol Tartrate 100 MG TABLET PO (08:09)
[2022-07-01 08:16] LABS: Procalcitonin 18.38 ng/mL
[2022-07-01] MEDS: ondansetron HCL 4 MG/2 ML VIAL IVPUSH (08:25)
--- NOTE | 2022-07-01 08:26 | P.PNIM_ITS ---
Subjective Subjective Date of Service: 07/01/22 Interval History: no fever since yesterday morning at 06:41 moderate abd pain, stoma functioning LUE swollen Review of Systems Review of Systems: Yes all other systems are reviewed and are negative Physical Exam Vital Signs: Vital Signs: Last Vital Signs Temp 98.7 F 07/01/22 07:35 Pulse 109 H 07/01/22 07:35 Resp 20 07/01/22 07:35 BP 102/63 07/01/22 07:35 Pulse Ox 99 07/01/22 07:35 O2 Del Method 07/01/22 07:35 O2 Flow Rate 2 07/01/22 07:35 FiO2 99 06/28/22 19:36 Oxygen Flow Rate 35 06/13/22 21:00 BMI result Body Mass Index 33.1 Gen: ill-appearing HEENT: sclera anicteric, moist mucus membranes Neck: supple Lungs: clear to auscultation bilaterally Heart: regular, tachycardic, no murmurs Abd: soft, stoma with liquid stool, non-tender, IR drains x3 with scant purulent liquid Ext: no edema, RUE PICC Skin: warm/well-perfused Neuro: alert and oriented x3, no focal findings Psych: appropriate affect Objective Data Active Medications Acetaminophen (Acetaminophen 325 Mg Tablet) 650 mg PO Q6H PRN PRN Reason: fever Last Admin: 06/30/22 06:27 Dose: 650 mg Documented By: DAVID Heparin Sodium (Porcine) 50 (units/ Sodium Chloride 5 ml) 0 units IVFLUSH TID [facility] Last Admin: 06/30/22 21:35 Dose: 50 unit Documented By: OTILIO Dicyclomine HCl (Dicyclomine Hcl 10 Mg Capsule) 20 mg PO TIDAC [facility] Last Admin: 07/01/22 08:09 Dose: 20 mg Documented By: LAUREN Duloxetine HCl (Duloxetine Hcl 60 Mg Capsule.) 60 mg PO BEDTIME [facility] Last Admin: 06/30/22 21:35 Dose: 60 mg Documented By: OTILIO Enoxaparin Sodium (Enoxaparin Sodium 100 Mg/Ml Syringe) 90 mg 1 mg/kg (90 mg) SUBCUT Q12H [facility] Last Admin: 07/01/22 03:09 Dose: 90 mg Documented By: HO.ANTOIC Fidaxomicin (Fidaxomicin 200 Mg Tablet) 200 mg PO Q12H [facility] Last Admin: 07/01/22 06:05 Dose: 200 mg Documented By: ANTOIC Gabapentin (Gabapentin 300 Mg Capsule) 300 mg PO BEDTIME [facility] Last Admin: 06/30/22 21:35 Dose: 300 mg Documented By: ANTMANINDER Hydromorphone HCl (Hydromorphone Hcl 0.5 Mg/0.5 Ml Syringe) 0.5 mg IVPUSH Q4H PRN; Protocol PRN Reason: mild pain Last Admin: 07/01/22 08:09 Dose: 0.5 mg Documented By: LAUREN Voriconazole 200 mg/ Sodium (Chloride) 100 mls @ 50 mls/hr IV Q12H [facility] Last Infusion: 06/30/22 23:26 Dose: 0 mls/hr Documented By: OTILIO Sodium Chloride (Ns) 1,000 mls @ 100 mls/hr IVCONT .Q10H [facility] Last Admin: 07/01/22 03:05 Dose: 100 mls/hr Documented By: OTILIO Meropenem 1 gm/ Sodium (Chloride) 100 mls @ 200 mls/hr IV Q8H [facility] Last Admin: 07/01/22 08:07 Dose: 200 mls/hr Documented By: LAUREN Metoprolol Tartrate (Metoprolol Tartrate 100 Mg Tablet) 100 mg PO BID [facility]; Protocol Last Admin: 07/01/22 08:09 Dose: 100 mg Documented By: LAUREN Patient Own Med ( (Ajovy 1.5 Ml)) 1.5 ml SUBCUT Q30D [facility] Last Admin: 06/30/22 13:56 Dose: 1.5 ml Documented By: LAKESHIA Nystatin (Nystatin Powder 15 Gm Bottle) 1 appl TOPICAL BID [facility]; Protocol Last Admin: 06/30/22 21:36 Dose: 1 appl Documented By: OTILIO Ondansetron HCl (Ondansetron Hcl 4 Mg/2 Ml Vial) 4 mg IVPUSH Q6H PRN PRN Reason: Nausea Last Admin: 07/01/22 08:25 Dose: 4 mg Documented By: LAUREN Oxycodone HCl (Oxycodone Hcl Immed Release 5 Mg Tablet) 5 mg PO Q4H PRN PRN Reason: mod-sev pain Last Admin: 06/30/22 15:06 Dose: 5 mg Documented By: DOMI Pharmacy Consult (Consult Rx Perform Med Rec) 1 each MISCELLANE ONCE PRN PRN Reason: Consult order Pharmacy Consult (Consult Rx Vancomycin Dosing) 1 each MISCELLANE DAILY PRN PRN Reason: Consult order Sodium Chloride (0.9 % Sodium Chloride Flush 3 Ml Syringe) 3 ml IVFLUSH QSHIFT [facility] Last Admin: 06/30/22 21:36 Dose: 3 ml Documented By: OTILIO Sumatriptan Succinate (Sumatriptan Succinate 6 Mg/0.5 Ml Vial) 6 mg SUBCUT DAILY PRN PRN Reason: migraine headache Topiramate (Topiramate 100 Mg Tablet) 200 mg PO BID [facility] Last Admin: 07/01/22 08:09 Dose: 200 mg Documented By: LAUREN Labs CBC & Chem 7: 07/01/22 06:41 07/01/22 06:41 Labs: Laboratory Results - last 24 hr 06/30/22 06/30/22 06/30/22 08:20 08:20 19:00 MCV 89.0 MCH 29.1 MCHC 32.7 RDW 16.8 H Plt Count 324 D MPV 10.2 Immature Gran % (Auto) 0.9 H Neut % (Auto) 87.5 H Lymph % (Auto) 8.6 L [place] % (Auto) 2.4 Eos % (Auto) 0.0 Baso % (Auto) 0.6 Lymph # (Auto) 1.1 L [place] # (Auto) 0.3 Eos # (Auto) 0.0 Baso # (Auto) 0.1 Abs Immat Gran (auto) 0.11 H Absolute Neuts (auto) 11.3 H Absolute Nucleated RBC 0.000 Nucleated RBC % (auto) 0.0 Anion Gap 15 Estim Creat Clear Calc 123.9 Estimated GFR > 60 Random Glucose 145 H Calcium 8.4 Total Bilirubin 0.5 AST 17 D ALT 9 Alkaline Phosphatase 138 H D C-Reactive Protein Total Protein 5.8 L Albumin 2.7 L Procalcitonin Stool Leukocytes, Qual NEGATIVE C. difficile Tox B Gene C. difficile Toxin A&B C. difficile Interpret 06/30/22 07/01/22 07/01/22 19:00 06:41 06:41 MCV 90.6 MCH 29.3 MCHC 32.4 RDW 17.2 H Plt Count 362 MPV 10.4 Immature Gran % (Auto) Neut % (Auto) Lymph % (Auto) [place] % (Auto) Eos % (Auto) Baso % (Auto) Lymph # (Auto) [place] # (Auto) Eos # (Auto) Baso # (Auto) Abs Immat Gran (auto) Absolute Neuts (auto) Absolute Nucleated RBC 0.000 Nucleated RBC % (auto) 0.0 Anion Gap 16 Estim Creat Clear Calc 117.2 Estimated GFR > 60 Random Glucose 149 H Calcium 7.9 L Total Bilirubin 0.3 AST ALT 7 Alkaline Phosphatase C-Reactive Protein 29.98 H Total Protein 4.8 L Albumin 2.3 L Procalcitonin Stool Leukocytes, Qual C. difficile Tox B Gene POSITIVE A* C. difficile Toxin A&B Positive A* C. difficile Interpret SEE NOTE 07/01/22 06:41 MCV MCH MCHC RDW Plt Count MPV Immature Gran % (Auto) Neut % (Auto) Lymph % (Auto) [place] % (Auto) Eos % (Auto) Baso % (Auto) Lymph # (Auto) [place] # (Auto) Eos # (Auto) Baso # (Auto) Abs Immat Gran (auto) Absolute Neuts (auto) Absolute Nucleated RBC Nucleated RBC % (auto) Anion Gap Estim Creat Clear Calc Estimated GFR Random Glucose Calcium Total Bilirubin AST ALT Alkaline Phosphatase C-Reactive Protein Total Protein Albumin Procalcitonin 18.38 Stool Leukocytes, Qual C. difficile Tox B Gene C. difficile Toxin A&B C. difficile Interpret Assessment and Plan (1) Leukocytosis: Status: Acute Plan d#45 62yo F admitted 05/18/22 with colitis/Crohn's flare. Flex sig showed perforation with abscess; taken to OR for ex-lap with colostomy after found to have extensive fecal soilage in peritoneum. Severely septic, sent to ICU intubated. Course since then complicated by multiple intra-abdominal abscesses causing fevers, with multiple drains placed by IR. Treated with metronidazole + sangeeta openem and given TPN. Extubated 06/07/22, transitioned to tube feeds and then to oral diet. Now with C difficile colitis, severe # severe C difficile colitis [due to leukocytosis] - fidoxamicin d#/. if develops fulminant colitis [hypotension/shock, ileus, megacolon], switch to PO/OH vancomycin plus IV metronidazole # septic shock secondary to perforated viscus with fecal peritonitis # candidiasis, peritoneal - s/p ex-lap/colostomy - got 3 wk of meropenem + metronidazole, ABX then stopped - extubated 06/07/22, given TPN, transitioned to tube feeds, then to oral feeds - abscess drainage x3; latest IR-guided drainage on 06/22 with removal of 500 mL of purulent fluid; per Gen Surg continue to leave drains in place - opioids for pain control - ID consulted; growing Verónica albicans and Verónica dubliniensis- susceptibilities requested and sent to reference lab + pending; d/c'ed meropenem and vancomycin 06/28/22; restarted meropenem 06/30 given increasing WBCs and fever; repeat CT A/P on 07/01 without any new abscesses - voriconazole d#04/06 [can change to oral upon eventual discharge] - ID re-consult pending # LUE DVT, catheter-associated - midline catheter removed, continue enoxaparin 1 mg/kg q12h # hypoK - repleted # migraines - resolved after 1 dose SQ sumatriptan # recurrent toxic-metabolic encephalopathy - likely ICU-related delirium, Neuro consult pending, doubt voriconazole effect given hallucinations started before the med was started # acute/chronic normocytic anemia - likely due to inflammation, no acute blood loss noted; given 1u pRBCs on 06/23/22 # SABINE due to septic shock/hypovolemia - resolved # hyperglycemia - due to critical illness; resolved # acute respiratory failure - extubated in ICU 06/07/22 # VTE ppx: LMWH # dispo: will need rehab, likely [facility] In my clinical judgment, the patient requires continued hospitalization for the following reasons: fever, sepsis Quality Stroke Does the patient have a stroke diagnosis?: No VTE Prior VTE?: No VTE Risk Level:: Medical - moderate - high VTE Device Contraindication: N/A - Device Ordered VTE Drug Contraindication: N/A - Med Ordered
[2022-07-01 08:46] LABS: Alkaline Phosphatase 100 U/L (39-117); Aspartate Amino Transferase 11 U/L (5-31); Blood Urea Nitrogen 17 mg/dL (9-16)
[2022-07-01] MEDS: Lactated Ringers 1,000 ML 125 ML IVCONT (09:50)
[2022-07-01] MEDS: 0.9 % Sodium Chloride Flush 3 ML SYRINGE IVFLUSH ×3 (09:52→23:51)
[2022-07-01] MEDS: Lactated Ringers 1,000 ML 999 ML IVCONT (09:52)
[2022-07-01] MEDS: Nystatin Powder 15 GM BOTTLE 1 APPL TOPICAL ×2 (10:03→21:28)
--- NOTE | 2022-07-01 10:17 | PM.PNGS ---
Subjective Subjective Date of Service: 07/01/22 Interval history: Liquid output from ostomy, severe colitis, C. diff positive, on fidaxomicin Physical Exam Vital Signs: Vital Signs: Last Vital Signs Temp 98.7 F 07/01/22 07:35 Pulse 109 H 07/01/22 07:35 Resp 20 07/01/22 07:35 BP 102/63 07/01/22 07:35 Pulse Ox 99 07/01/22 07:35 O2 Del Method 07/01/22 07:35 O2 Flow Rate 2 07/01/22 07:35 FiO2 99 06/28/22 19:36 Oxygen Flow Rate 35 06/13/22 21:00 BMI result Body Mass Index 33.1 Const: General: ill appearing and tired appearing Resp: Effort & Inspection: tachypneic Cardio: Rate: tachycardic GI: Other: Stoma in place, functioning well, loose stool identified. NOHEMI is intact with scant output. Inspection: No distended Palpation (GI): Soft to palpation Skin: Other: Warm, dry Objective Data Active Medications Acetaminophen (Acetaminophen 325 Mg Tablet) 650 mg PO Q6H PRN PRN Reason: fever Last Admin: 06/30/22 06:27 Dose: 650 mg Documented By: DAVID Heparin Sodium (Porcine) 50 (units/ Sodium Chloride 5 ml) 0 units IVFLUSH TID [facility] Last Admin: 07/01/22 10:10 Dose: Not Given Documented By: LAUREN Non-Admin Reason: IV Running Dicyclomine HCl (Dicyclomine Hcl 10 Mg Capsule) 20 mg PO TIDAC [facility] Last Admin: 07/01/22 08:09 Dose: 20 mg Documented By: LAUREN Duloxetine HCl (Duloxetine Hcl 60 Mg Capsule.Dr) 60 mg PO BEDTIME [facility] Last Admin: 06/30/22 21:35 Dose: 60 mg Documented By: OTILIO Enoxaparin Sodium (Enoxaparin Sodium 100 Mg/Ml Syringe) 90 mg 1 mg/kg (90 mg) SUBCUT Q12H [facility] Last Admin: 07/01/22 03:09 Dose: 90 mg Documented By: OTILIO Fidaxomicin (Fidaxomicin 200 Mg Tablet) 200 mg PO Q12H [facility] Last Admin: 07/01/22 06:05 Dose: 200 mg Documented By: OTILIO Gabapentin (Gabapentin 300 Mg Capsule) 300 mg PO BEDTIME [facility] Last Admin: 06/30/22 21:35 Dose: 300 mg Documented By: OTILIO Hydromorphone HCl (Hydromorphone Hcl 0.5 Mg/0.5 Ml Syringe) 0.5 mg IVPUSH Q4H PRN; Protocol PRN Reason: mild pain Last Admin: 07/01/22 08:09 Dose: 0.5 mg Documented By: LAUREN Voriconazole 200 mg/ Sodium (Chloride) 100 mls @ 50 mls/hr IV Q12H [facility] Last Infusion: 06/30/22 23:26 Dose: 0 mls/hr Documented By: OTILIO Meropenem 1 gm/ Sodium (Chloride) 100 mls @ 200 mls/hr IV Q8H [facility] Last Infusion: 07/01/22 10:09 Dose: 0 mls/hr Documented By: LAUREN Lactated Ringer's (Lr) 1,000 mls @ 125 mls/hr IVCONT .Q8H [facility] Last Admin: 07/01/22 09:50 Dose: 125 mls/hr Documented By: LAUREN Metoprolol Tartrate (Metoprolol Tartrate 100 Mg Tablet) 100 mg PO BID [facility]; Protocol Last Admin: 07/01/22 08:09 Dose: 100 mg Documented By: LAUREN Patient Own Med ( (Ajovy 1.5 Ml)) 1.5 ml SUBCUT Q30D [facility] Last Admin: 06/30/22 13:56 Dose: 1.5 ml Documented By: LAKESHIA Nystatin (Nystatin Powder 15 Gm Bottle) 1 appl TOPICAL BID [facility]; Protocol Last Admin: 07/01/22 10:03 Dose: 1 appl Documented By: LAUREN Ondansetron HCl (Ondansetron Hcl 4 Mg/2 Ml Vial) 4 mg IVPUSH Q6H PRN PRN Reason: Nausea Last Admin: 07/01/22 08:25 Dose: 4 mg Documented By: LAUREN Oxycodone HCl (Oxycodone Hcl Immed Release 5 Mg Tablet) 5 mg PO Q4H PRN PRN Reason: mod-sev pain Last Admin: 06/30/22 15:06 Dose: 5 mg Documented By: DOMI Pharmacy Consult (Consult Rx Perform Med Rec) 1 each MISCELLANE ONCE PRN PRN Reason: Consult order Pharmacy Consult (Consult Rx Vancomycin Dosing) 1 each MISCELLANE DAILY PRN PRN Reason: Consult order Sodium Chloride (0.9 % Sodium Chloride Flush 3 Ml Syringe) 3 ml IVFLUSH QSHIFT [facility] Last Admin: 07/01/22 09:52 Dose: 3 ml Documented By: LAUREN Sumatriptan Succinate (Sumatriptan Succinate 6 Mg/0.5 Ml Vial) 6 mg SUBCUT DAILY PRN PRN Reason: migraine headache Topiramate (Topiramate 100 Mg Tablet) 200 mg PO BID [facility] Last Admin: 07/01/22 08:09 Dose: 200 mg Documented By: LAUREN Labs CBC & Chem 7: 07/01/22 06:41 07/01/22 06:41 Labs: Laboratory Results - last 24 hr 06/30/22 06/30/22 07/01/22 19:00 19:00 06:41 MCV 90.6 MCH 29.3 MCHC 32.4 RDW 17.2 H Plt Count 362 MPV 10.4 Absolute Nucleated RBC 0.000 Nucleated RBC % (auto) 0.0 Anion Gap Estim Creat Clear Calc Estimated GFR Random Glucose Calcium Total Bilirubin AST ALT Alkaline Phosphatase C-Reactive Protein Total Protein Albumin Procalcitonin Stool Leukocytes, Qual NEGATIVE C. difficile Tox B Gene POSITIVE A* C. difficile Toxin A&B Positive A* C. difficile Interpret SEE NOTE 07/01/22 07/01/22 06:41 06:41 MCV MCH MCHC RDW Plt Count MPV Absolute Nucleated RBC Nucleated RBC % (auto) Anion Gap 16 Estim Creat Clear Calc 117.2 Estimated GFR > 60 Random Glucose 149 H Calcium 7.9 L Total Bilirubin 0.3 AST 11 ALT 7 Alkaline Phosphatase 100 D C-Reactive Protein 29.98 H Total Protein 4.8 L Albumin 2.3 L Procalcitonin 18.38 Stool Leukocytes, Qual C. difficile Tox B Gene C. difficile Toxin A&B C. difficile Interpret Microbiology Microbiology Results: Microbiology 06/30/22 07:05 Blood Culture - Preliminary Blood - Venous No growth after 24 hours. 06/30/22 07:05 Blood Culture - Preliminary Blood - Venous No growth after 24 hours. Procedures Date of Service Date of Service: 10/22/22 Arterial Line Size (Gauge): 16 Progress Note: A&P Assessment and plan (1) Status post colostomy: Status: Acute (2) Colitis due to Clostridioides difficile: Status: Acute Plan patient with evidence of C diff colitis by CT and stool specimen. WBC elevated to 33 K. she is now on day 2 of fidaxomicin IV; she may knee p.o. vancomycin no improvement Time Spent With Patient Time: Total time spent is greater than 50% in coordination of care (as documented) at patient's floor/unit and/or counseling patient: Quality Stroke Does the patient have a stroke diagnosis?: No VTE Prior VTE?: No VTE Risk Level:: Medical - moderate - high VTE Device Contraindication: N/A - Device Ordered VTE Drug Contraindication: N/A - Med Ordered
[2022-07-01 10:38] LABS: Adenovirus F 40/41 Not Detected (Not Detect.); Astrovirus Not Detected (Not Detect.); Campylobacter Not Detected (Not Detect.); Cryptosporidium Not Detected (Not Detect.); Cyclospora cayetanensis Not Detected (Not Detect.); E. coli EAEC Not Detected (Not Detect.); E. coli EPEC Not Detected (Not Detect.); E. coli ETEC Not Detected (Not Detect.); E. coli STEC Not Detected (Not Detect.); Entamoeba histolytica Not Detected (Not Detect.); Giardia lamblia Not Detected (Not Detect.); Norovirus GI/GII Not Detected (Not Detect.); Plesiomonas shigelloides Not Detected (Not Detect.); Rotavirus A Not Detected (Not Detect.); Salmonella Not Detected (Not Detect.); Sapovirus Not Detected (Not Detect.); Shigella sp./EIEC Not Detected (Not Detect.); Vibrio Not Detected (Not Detect.); Vibrio Cholerae Not Detected (Not Detect.); Yersinia enterocolitica Not Detected (Not Detect.)
[2022-07-01] MEDS: Voriconazole 200 MG in 0.9 % Sodium Chloride 100 ML 50 MG IV ×2 (10:48→21:28)
--- NOTE | 2022-07-01 16:01 | PC.NURSE ---
Blood pressure 87/46, intervantion: nichol legs elevated , BP 96/56, DR Acuña notified via tiger text
[2022-07-01] MEDS: 0.9 % Sodium Chloride 1,000 ML 999 ML IVCONT ×2 (16:15→17:41)
[2022-07-01 17:07] LABS: Lactic Acid 1.8 mmol/L (0.5-2.0)
--- NOTE | 2022-07-01 17:58 | PM.EVENT ---
Event Note Date of Service: 07/01/22 Event Note: Patient's blood pressure was borderline this afternoon, staff called to evaluate but that time the blood pressure is already on 90s Patient patient denies any new complaints-unchanged from this morning. She actually says that she is feeling slightly better than yesterday Physical exam: Unchanged as please see hospitalist note today. Assessment and plan: ? Borderline blood pressure: Patient poor oral intake, also on blood pressure medication and also has severe sepsis (as per hospitalist's note) Leukocytosis trending up this morning-currently on voriconazole, meropenem restarted, on fidaxomicin also for C diff Patient was given 1 L bolus-blood pressure trending up, lactic acid normal, added albumin, blood culture added also. Discussed with ICU -currently blood pressure improving so will continue to monitor if any hemodynamically and instability may need ICU evaluation.
[2022-07-01] MEDS: Albumin Human 25 % 100 ML IV ×2 (18:30→19:45)
[2022-07-01] MEDS: metroNIDAZOLE/NS 500 MG/100 ML PIGGYBACK 100 MG IV (19:45)
[2022-07-01] MEDS: vancomycin HCL 125 MG CAPSULE 500 MG PO (19:45)
[2022-07-01] MEDS: DULoxetine HCl 60 MG CAPSULE.DR PO (21:28)
[2022-07-01] MEDS: Gabapentin 300 MG CAPSULE PO (21:28)
[2022-07-01] MEDS: Heparin Sodium,Porcine Flush 50 UNITS, 0.9 % Sodium Chloride Flush 5 ML IVFLUSH (21:29)
[2022-07-02] VITALS (11 sets, daily range): BP systolic 101–151; BP diastolic 54–82; PULSE 89–125; RESP 18–20; TEMP 35.7–37.1; O2SAT 90–99; BMI 33.4
--- NOTE | 2022-07-02 00:12 | PC.NURSE ---
intervention for low bp: DR Bridges evaluated pt at the bedside, Fluids NS 2 liters IV ordered. Per DR Bridges infuse only 1 liter, the 2nd bag was paused. Lactic acid ordered , blood cx was ordered . Antibiotics were added to the treatment. Colostomy is draining liquid green stool.
[2022-07-02] MEDS: vancomycin HCL 125 MG CAPSULE 500 MG PO ×4 (01:34→18:50)
[2022-07-02] MEDS: HYDROmorphone HCl 0.5 MG/0.5 ML SYRINGE IVPUSH ×5 (02:46→21:39)
[2022-07-02] MEDS: metroNIDAZOLE/NS 500 MG/100 ML PIGGYBACK 100 MG IV ×3 (02:47→18:48)
[2022-07-02] MEDS: Enoxaparin Sodium 100 MG/ML SYRINGE 90 MG SUBCUT ×2 (05:02→16:53)
[2022-07-02] MEDS: 0.9 % Sodium Chloride 1,000 ML 100 ML IVCONT ×2 (05:03→15:34)
[2022-07-02 07:26] LABS: Hematocrit 23.7 % (37.0-47.0); Hemoglobin 7.6 g/dl (12.0-16.0); Mean Corpuscular HGB Conc 32.1 g/dl (31.0-35.0); Mean Corpuscular Hemoglobin 29.3 pg (27.0-33.0); Mean Corpuscular Volume 91.5 fL (80.0-98.0); Platelet Count 314 X10*3/uL (160-400); Red Blood Count 2.59 X10*6/uL (4.20-5.50); White Blood Count 27.4 X10*3/uL (4.8-10.8)
[2022-07-02 07:44] LABS: Anion Gap 13 (12-20); Blood Urea Nitrogen 14 mg/dL (9-16); Carbon Dioxide 22 mmol/L (22-29); Chloride 105 mmol/L (96-108); Creatinine Clr Calc Pharmacy 136.1; Estimated Glomerular Filt Rate > 60; Glucose Random 95 mg/dL (60-115); Potassium 3.2 mmol/L (3.3-5.1); Sodium 137 mmol/L (135-145)
[2022-07-02] MEDS: Topiramate 100 MG TABLET 200 MG PO ×2 (07:59→21:39)
[2022-07-02] MEDS: Dicyclomine HCl 10 MG CAPSULE 20 MG PO ×3 (07:59→15:42)
[2022-07-02] MEDS: Heparin Sodium,Porcine Flush 50 UNITS, 0.9 % Sodium Chloride Flush 5 ML IVFLUSH ×2 (08:00→15:31)
[2022-07-02] MEDS: 0.9 % Sodium Chloride Flush 3 ML SYRINGE IVFLUSH ×2 (08:01→15:30)
--- NOTE | 2022-07-02 10:00 | PM.PNGS ---
Subjective Subjective Date of Service: 07/02/22 Interval history: Continue liquid stool per ostomy. Physical Exam Vital Signs: Vital Signs: Last Vital Signs Temp 97.9 F 07/02/22 07:31 Pulse 116 H 07/02/22 07:31 Resp 20 07/02/22 07:31 BP 116/68 07/02/22 07:31 Pulse Ox 99 07/02/22 07:31 O2 Del Method 07/02/22 07:31 O2 Flow Rate 2 07/02/22 07:31 FiO2 97 07/01/22 20:00 Oxygen Flow Rate 35 06/13/22 21:00 BMI result Body Mass Index 33.4 Const: General: ill appearing and tired appearing Resp: Effort & Inspection: tachypneic Cardio: Rate: tachycardic GI: Other: Stoma in place, functioning well, loose stool identified. NOHEMI is intact with scant output. Inspection: No distended Palpation (GI): Soft to palpation Skin: Other: Warm, dry Objective Data Active Medications Acetaminophen (Acetaminophen 325 Mg Tablet) 650 mg PO Q6H PRN PRN Reason: fever Last Admin: 06/30/22 06:27 Dose: 650 mg Documented By: DAVID Heparin Sodium (Porcine) 50 (units/ Sodium Chloride 5 ml) 0 units IVFLUSH TID [facility] Last Admin: 07/02/22 08:00 Dose: 50 unit Documented By: CITLALI Dicyclomine HCl (Dicyclomine Hcl 10 Mg Capsule) 20 mg PO TIDAC [facility] Last Admin: 07/02/22 07:59 Dose: 20 mg Documented By: CITLALI Duloxetine HCl (Duloxetine Hcl 60 Mg Capsule.) 60 mg PO BEDTIME [facility] Last Admin: 07/01/22 21:28 Dose: 60 mg Documented By: JENNIFER Enoxaparin Sodium (Enoxaparin Sodium 100 Mg/Ml Syringe) 90 mg 1 mg/kg (90 mg) SUBCUT Q12H [facility] Last Admin: 07/02/22 05:02 Dose: 90 mg Documented By: YOHANA Gabapentin (Gabapentin 300 Mg Capsule) 300 mg PO BEDTIME [facility] Last Admin: 07/01/22 21:28 Dose: 300 mg Documented By: JENNIFER Hydromorphone HCl (Hydromorphone Hcl 0.5 Mg/0.5 Ml Syringe) 0.5 mg IVPUSH Q4H PRN; Protocol PRN Reason: mild pain Last Admin: 07/02/22 07:56 Dose: 0.5 mg Documented By: CITLALI Voriconazole 200 mg/ Sodium (Chloride) 100 mls @ 50 mls/hr IV Q12H [facility] Last Infusion: 07/01/22 23:44 Dose: 0 mls/hr Documented By: JENNIFER Meropenem 1 gm/ Sodium (Chloride) 100 mls @ 200 mls/hr IV Q8H [facility] Last Admin: 07/02/22 08:00 Dose: 200 mls/hr Documented By: CITLALI Sodium Chloride (Ns) 1,000 mls @ 100 mls/hr IVCONT .Q10H [facility] Last Admin: 07/02/22 05:03 Dose: 100 mls/hr Documented By: YOHANA Metronidazole (Flagyl) 500 mg in 100 mls @ 100 mls/hr IV Q8H [facility] Last Infusion: 07/02/22 04:43 Dose: 0 mls/hr Documented By: YOHANA Metoprolol Tartrate (Metoprolol Tartrate 100 Mg Tablet) 100 mg PO BID [facility]; Protocol Last Admin: 07/01/22 08:09 Dose: 100 mg Documented By: LAUREN Patient Own Med ( (Ajovy 1.5 Ml)) 1.5 ml SUBCUT Q30D [facility] Last Admin: 06/30/22 13:56 Dose: 1.5 ml Documented By: LAKESHIA Nystatin (Nystatin Powder 15 Gm Bottle) 1 appl TOPICAL BID [facility]; Protocol Last Admin: 07/01/22 21:28 Dose: 1 appl Documented By: JENNIFER Ondansetron HCl (Ondansetron Hcl 4 Mg/2 Ml Vial) 4 mg IVPUSH Q6H PRN PRN Reason: Nausea Last Admin: 07/01/22 08:25 Dose: 4 mg Documented By: LAUREN Oxycodone HCl (Oxycodone Hcl Immed Release 5 Mg Tablet) 5 mg PO Q4H PRN PRN Reason: mod-sev pain Last Admin: 06/30/22 15:06 Dose: 5 mg Documented By: DOMI Pharmacy Consult (Consult Rx Perform Med Rec) 1 each MISCELLANE ONCE PRN PRN Reason: Consult order Pharmacy Consult (Consult Rx Vancomycin Dosing) 1 each MISCELLANE DAILY PRN PRN Reason: Consult order Sodium Chloride (0.9 % Sodium Chloride Flush 3 Ml Syringe) 3 ml IVFLUSH QSHIFT [facility] Last Admin: 07/02/22 08:01 Dose: 3 ml Documented By: CITLALI Sumatriptan Succinate (Sumatriptan Succinate 6 Mg/0.5 Ml Vial) 6 mg SUBCUT DAILY PRN PRN Reason: migraine headache Topiramate (Topiramate 100 Mg Tablet) 200 mg PO BID [facility] Last Admin: 07/02/22 07:59 Dose: 200 mg Documented By: CITLALI Vancomycin HCl (Vancomycin Hcl 125 Mg Capsule) 500 mg PO Q6H [facility] Last Admin: 07/02/22 07:59 Dose: 500 mg Documented By: CITLALI Labs CBC & Chem 7: 07/02/22 06:40 07/02/22 06:40 Labs: Laboratory Results - last 24 hr 06/30/22 07/01/22 07/01/22 19:00 16:44 20:10 MCV MCH MCHC RDW Plt Count MPV Absolute Nucleated RBC Nucleated RBC % (auto) Anion Gap Estim Creat Clear Calc Estimated GFR Random Glucose Lactic Acid 1.8 Calcium Stl C. cayetanensis PCR Not Detected Stool Rotavirus A PCR Not Detected Stl Adenov F 40/41 PCR Not Detected Stool Astrovirus (PCR) Not Detected Stool Campylobacter PCR Not Detected Stool Cryptosporidium PCR Not Detected Stl Sh Tox Pr E STEC PCR Not Detected Stool E coli O157 PCR Not applicable Stl Enterotoxigenic E PCR Not Detected Stool EPEC (PCR) Not Detected Stool EAEC (PCR) Not Detected Stl E. histolytica PCR Not Detected Stool Giardia Lamblia PCR Not Detected Stl P. shigelloides PCR Not Detected Stool Salmonella PCR Not Detected Stool Sapovirus (PCR) Not Detected Stl Shigella/EIEC PCR Not Detected St Y.enterocolitica PCR Not Detected Stool Vibrio (PCR) Not Detected Stl Vibrio cholerae PCR Not Detected Stl Norovirus GI/GII PCR Not Detected Vancomycin Trough 10.0 07/02/22 07/02/22 06:40 06:40 MCV 91.5 MCH 29.3 MCHC 32.1 RDW 17.0 H Plt Count 314 MPV 10.0 Absolute Nucleated RBC 0.000 Nucleated RBC % (auto) 0.0 Anion Gap 13 Estim Creat Clear Calc 136.1 Estimated GFR > 60 Random Glucose 95 Lactic Acid Calcium 8.0 L Stl C. cayetanensis PCR Stool Rotavirus A PCR Stl Adenov F 40/41 PCR Stool Astrovirus (PCR) Stool Campylobacter PCR Stool Cryptosporidium PCR Stl Sh Tox Pr E STEC PCR Stool E coli O157 PCR Stl Enterotoxigenic E PCR Stool EPEC (PCR) Stool EAEC (PCR) Stl E. histolytica PCR Stool Giardia Lamblia PCR Stl P. shigelloides PCR Stool Salmonella PCR Stool Sapovirus (PCR) Stl Shigella/EIEC PCR St Y.enterocolitica PCR Stool Vibrio (PCR) Stl Vibrio cholerae PCR Stl Norovirus GI/GII PCR Vancomycin Trough Microbiology Microbiology Results: Microbiology 06/30/22 07:05 Blood Culture - Preliminary Blood - Venous No growth after 48 hours. 06/30/22 07:05 Blood Culture - Preliminary Blood - Venous No growth after 48 hours. 06/27/22 01:16 Blood Culture - Final Blood - Venous No growth after 5 days. 06/27/22 01:16 Blood Culture - Final Blood - Venous No growth after 5 days. 06/22/22 16:30 Gram Stain - Final Abdominal Fluid Routine Culture - Preliminary Verónica albicans Anaerobic Culture - Final NO GROWTH AFTER 5 DAYS Procedures Date of Service Date of Service: 07/02/22 Arterial Line Size (Gauge): 16 Progress Note: A&P Assessment and plan (1) Status post colostomy: Status: Acute (2) Colitis due to Clostridioides difficile: Status: Acute Plan 62-year-old female patient with history of Crohn's disease, with colon perforation, s/p colon resection with colostomy on 05/23/2022. Patient now with increased WBC and liquid stool per ostomy. Stool positive for C difficile. She is now on vanco p.o. and Flagyl IV. WBC decreased to 27 this morning. NOHEMI is intact and CT from 06/30/2022 revealed no undrained collections. Diffuse colonic thickening is identified consistent with infectious colitis. Time Spent With Patient Time: Total time spent is greater than 50% in coordination of care (as documented) at patient's floor/unit and/or counseling patient: Quality Stroke Does the patient have a stroke diagnosis?: No VTE Prior VTE?: No VTE Risk Level:: Medical - moderate - high VTE Device Contraindication: N/A - Device Ordered VTE Drug Contraindication: N/A - Med Ordered
--- NOTE | 2022-07-02 10:48 | P.PNIM_ITS ---
Subjective Subjective Date of Service: 07/02/22 Interval History: No acute issues overnight. T-max 100.8 degrees Review of Systems Denies chest pain Denies shortness of breath Denies nausea vomiting diarrhea Denies fever chills Physical Exam Vital Signs: Vital Signs: Last Vital Signs Temp 97.9 F 07/02/22 07:31 Pulse 116 H 07/02/22 07:31 Resp 20 07/02/22 07:31 BP 116/68 07/02/22 07:31 Pulse Ox 99 07/02/22 07:31 O2 Del Method 07/02/22 07:31 O2 Flow Rate 2 07/02/22 07:31 FiO2 97 07/01/22 20:00 Oxygen Flow Rate 35 06/13/22 21:00 BMI result Body Mass Index 33.4 Const: Other: No acute distress Resp: Other: Clear to auscultation bilaterally no rales rhonchi or wheezes Cardio: Other: No S4; positive S1-S2; no S3 murmurs rubs or gallops GI: Other: Soft nontender nondistended normoactive bowel sounds. Stoma in place, functioning well, loose stool identified.? NOHEMI is intact with scant output.? Inspection: No distended? Palpation (GI): Soft to palpation Extrem: Other: No edema bilaterally Objective Data Active Medications Acetaminophen (Acetaminophen 325 Mg Tablet) 650 mg PO Q6H PRN PRN Reason: fever Last Admin: 06/30/22 06:27 Dose: 650 mg Documented By: DAVID Heparin Sodium (Porcine) 50 (units/ Sodium Chloride 5 ml) 0 units IVFLUSH TID [facility] Last Admin: 07/02/22 08:00 Dose: 50 unit Documented By: CITLALI Dicyclomine HCl (Dicyclomine Hcl 10 Mg Capsule) 20 mg PO TIDAC [facility] Last Admin: 07/02/22 07:59 Dose: 20 mg Documented By: CITLALI Duloxetine HCl (Duloxetine Hcl 60 Mg Capsule.) 60 mg PO BEDTIME [facility] Last Admin: 07/01/22 21:28 Dose: 60 mg Documented By: JENNIFER Enoxaparin Sodium (Enoxaparin Sodium 100 Mg/Ml Syringe) 90 mg 1 mg/kg (90 mg) SUBCUT Q12H [facility] Last Admin: 07/02/22 05:02 Dose: 90 mg Documented By: YOHANA Gabapentin (Gabapentin 300 Mg Capsule) 300 mg PO BEDTIME [facility] Last Admin: 07/01/22 21:28 Dose: 300 mg Documented By: JENNIFER Hydromorphone HCl (Hydromorphone Hcl 0.5 Mg/0.5 Ml Syringe) 0.5 mg IVPUSH Q4H PRN; Protocol PRN Reason: mild pain Last Admin: 07/02/22 07:56 Dose: 0.5 mg Documented By: CITLALI Voriconazole 200 mg/ Sodium (Chloride) 100 mls @ 50 mls/hr IV Q12H [facility] Last Infusion: 07/01/22 23:44 Dose: 0 mls/hr Documented By: JENNIFER Meropenem 1 gm/ Sodium (Chloride) 100 mls @ 200 mls/hr IV Q8H [facility] Last Admin: 07/02/22 08:00 Dose: 200 mls/hr Documented By: CITLALI Sodium Chloride (Ns) 1,000 mls @ 100 mls/hr IVCONT .Q10H [facility] Last Admin: 07/02/22 05:03 Dose: 100 mls/hr Documented By: YOHANA Metronidazole (Flagyl) 500 mg in 100 mls @ 100 mls/hr IV Q8H [facility] Last Infusion: 07/02/22 04:43 Dose: 0 mls/hr Documented By: YOHANA Metoprolol Tartrate (Metoprolol Tartrate 100 Mg Tablet) 100 mg PO BID [facility]; Protocol Last Admin: 07/01/22 08:09 Dose: 100 mg Documented By: LAUREN Patient Own Med ( (Ajovy 1.5 Ml)) 1.5 ml SUBCUT Q30D [facility] Last Admin: 06/30/22 13:56 Dose: 1.5 ml Documented By: LAKESHIA Nystatin (Nystatin Powder 15 Gm Bottle) 1 appl TOPICAL BID [facility]; Protocol Last Admin: 07/01/22 21:28 Dose: 1 appl Documented By: JENNIFER Ondansetron HCl (Ondansetron Hcl 4 Mg/2 Ml Vial) 4 mg IVPUSH Q6H PRN PRN Reason: Nausea Last Admin: 07/01/22 08:25 Dose: 4 mg Documented By: LAUREN Oxycodone HCl (Oxycodone Hcl Immed Release 5 Mg Tablet) 5 mg PO Q4H PRN PRN Reason: mod-sev pain Last Admin: 06/30/22 15:06 Dose: 5 mg Documented By: DOMI Pharmacy Consult (Consult Rx Perform Med Rec) 1 each MISCELLANE ONCE PRN PRN Reason: Consult order Pharmacy Consult (Consult Rx Vancomycin Dosing) 1 each MISCELLANE DAILY PRN PRN Reason: Consult order Sodium Chloride (0.9 % Sodium Chloride Flush 3 Ml Syringe) 3 ml IVFLUSH QSHIFT [facility] Last Admin: 07/02/22 08:01 Dose: 3 ml Documented By: CITLALI Sumatriptan Succinate (Sumatriptan Succinate 6 Mg/0.5 Ml Vial) 6 mg SUBCUT DAILY PRN PRN Reason: migraine headache Topiramate (Topiramate 100 Mg Tablet) 200 mg PO BID [facility] Last Admin: 07/02/22 07:59 Dose: 200 mg Documented By: CITLALI Vancomycin HCl (Vancomycin Hcl 125 Mg Capsule) 500 mg PO Q6H [facility] Last Admin: 07/02/22 07:59 Dose: 500 mg Documented By: CITLALI Labs CBC & Chem 7: 07/02/22 06:40 07/02/22 06:40 Labs: Laboratory Results - last 24 hr 07/01/22 07/01/22 07/02/22 16:44 20:10 06:40 MCV 91.5 MCH 29.3 MCHC 32.1 RDW 17.0 H Plt Count 314 MPV 10.0 Absolute Nucleated RBC 0.000 Nucleated RBC % (auto) 0.0 Anion Gap Estim Creat Clear Calc Estimated GFR Random Glucose Lactic Acid 1.8 Calcium Vancomycin Trough 10.0 07/02/22 06:40 MCV MCH MCHC RDW Plt Count MPV Absolute Nucleated RBC Nucleated RBC % (auto) Anion Gap 13 Estim Creat Clear Calc 136.1 Estimated GFR > 60 Random Glucose 95 Lactic Acid Calcium 8.0 L Vancomycin Trough Microbiology Microbiology Results: Microbiology 06/30/22 07:05 Blood Culture - Preliminary Blood - Venous No growth after 48 hours. 06/30/22 07:05 Blood Culture - Preliminary Blood - Venous No growth after 48 hours. 06/27/22 01:16 Blood Culture - Final Blood - Venous No growth after 5 days. 06/27/22 01:16 Blood Culture - Final Blood - Venous No growth after 5 days. 06/22/22 16:30 Gram Stain - Final Abdominal Fluid Routine Culture - Preliminary Verónica albicans Anaerobic Culture - Final NO GROWTH AFTER 5 DAYS Assessment and Plan (1) Colitis due to Clostridioides difficile: Status: Acute (2) Peritonitis: Status: Acute Plan 62yo F admitted 05/18/22 with colitis/Crohn's flare. Flex sig showed perforation with abscess; taken to OR for ex-lap with colostomy after found to have extensive fecal soilage in peritoneum. Severely septic, sent to ICU intubated. Course since then complicated by multiple intra-abdominal abscesses causing fevers, with multiple drains placed by IR. Treated with metronidazole + meropenem and given TPN. Extubated 06/07/22, transitioned to tube feeds and then to oral diet.Now with C difficile colitis, severe 1.C difficile colitis - fidoxamicin (11/17). -switch to PO/DE vancomycin plus IV metronidazole if clinically indicated 2.Fungal Peritonitis - voriconazole (05/07) [can change to oral upon eventual discharge] - ID re-consult pending 3.LUE DVT(catheter-associated) - midline catheter removed, continue enoxaparin 1 mg/kg q12h 4.SABINE - resolved -follow renals/divalents VTE ppx: LMWH # dispo: will need rehab, likely [facility] Patient requires continued hospitalization secondary to the need for placement Quality Stroke Does the patient have a stroke diagnosis?: No VTE Prior VTE?: No VTE Risk Level:: Medical - moderate - high VTE Device Contraindication: N/A - Device Ordered VTE Drug Contraindication: N/A - Med Ordered
[2022-07-02] MEDS: Voriconazole 200 MG in 0.9 % Sodium Chloride 100 ML 50 MG IV ×2 (11:06→21:39)
[2022-07-02] MEDS: oxyCODONE HCl Immed Release 5 MG TABLET PO (11:22)
[2022-07-02] MEDS: Potassium Chloride/H20 10 MEQ/100 ML PIGGYBACK 100 MEQ IV ×4 (15:29→18:50)
[2022-07-02] MEDS: Gabapentin 300 MG CAPSULE PO (21:39)
[2022-07-02] MEDS: Nystatin Powder 15 GM BOTTLE 1 APPL TOPICAL (21:40)
[2022-07-02] MEDS: DULoxetine HCl 60 MG CAPSULE.DR PO (21:40)
[2022-07-03] VITALS (9 sets, daily range): BP systolic 116–128; BP diastolic 62–78; PULSE 100–125; RESP 16–20; TEMP 36.1–37.4; O2SAT 97–100; BMI 35.7
[2022-07-03] MEDS: oxyCODONE HCl Immed Release 5 MG TABLET PO ×4 (00:35→19:55)
[2022-07-03] MEDS: vancomycin HCL 125 MG CAPSULE 500 MG PO ×4 (00:45→19:48)
[2022-07-03] MEDS: 0.9 % Sodium Chloride Flush 3 ML SYRINGE IVFLUSH ×4 (00:51→19:53)
[2022-07-03] MEDS: HYDROmorphone HCl 0.5 MG/0.5 ML SYRINGE IVPUSH ×4 (01:38→16:40)
[2022-07-03] MEDS: metroNIDAZOLE/NS 500 MG/100 ML PIGGYBACK 100 MG IV ×3 (04:48→19:44)
[2022-07-03] MEDS: Enoxaparin Sodium 100 MG/ML SYRINGE 90 MG SUBCUT ×2 (04:51→16:41)
[2022-07-03] MEDS: 0.9 % Sodium Chloride 1,000 ML 100 ML IVCONT (06:03)
[2022-07-03 06:24] LABS: Hematocrit 25.6 % (37.0-47.0); Hemoglobin 8.1 g/dl (12.0-16.0); Mean Corpuscular HGB Conc 31.6 g/dl (31.0-35.0); Mean Corpuscular Hemoglobin 29.3 pg (27.0-33.0); Mean Corpuscular Volume 92.8 fL (80.0-98.0); Mean Platelet Volume 10.5 fL (9.4-12.3); Platelet Count 360 X10*3/uL (160-400); Red Blood Count 2.76 X10*6/uL (4.20-5.50); Red Cell Distribution Width 17.1 % (11.0-16.0); White Blood Count 27.4 X10*3/uL (4.8-10.8)
[2022-07-03 06:42] LABS: Alanine Aminotransferase < 6 U/L (0-31); Albumin Level 2.4 g/dL (3.5-5.0); Alkaline Phosphatase 109 U/L (39-117); Anion Gap 15 (12-20); Aspartate Amino Transferase 9 U/L (5-31); Bilirubin Total 0.2 mg/dL (0.0-1.0); Blood Urea Nitrogen 10 mg/dL (9-16); Carbon Dioxide 22 mmol/L (22-29); Chloride 103 mmol/L (96-108); Estimated Glomerular Filt Rate > 60; Glucose Fasting 98 mg/dL (60-99); Potassium 3.5 mmol/L (3.3-5.1); Sodium 136 mmol/L (135-145); Total Protein 4.5 g/dL (6.5-8.0)
[2022-07-03 07:05] LABS: Band Neutrophils Percent 14 % (3-5); Lymphocytes Absolute Manual 1.9 X10*3/uL (1.2-4.9); Lymphocytes Percent Manual 7 % (20-40); Monocytes Absolute Manual 0.8 X10*3/uL (0.1-1.2); Monocytes Percent Manual 3 % (2-11); Neutrophils Absolute Manual 24.7 X10*3/uL (2.0-8.3); Neutrophils Percent Manual 76 % (45-73)
[2022-07-03 07:08] LABS: Macrocytosis 1+ (5-14) /OIF; Platelet Estimate NORMAL (NORMAL); Platelet Morphology Comment NOTED; RBC Morphology NOTED
[2022-07-03 07:09] LABS: Acanthocytes 1+ (0-2) /OIF; Large Platelet PRESENT; Ovalocytes 1+ (5-14) /OIF; Polychromasia 1+ (0-2) /OIF
[2022-07-03] MEDS: Topiramate 100 MG TABLET 200 MG PO ×2 (07:55→19:48)
[2022-07-03] MEDS: Dicyclomine HCl 10 MG CAPSULE 20 MG PO ×3 (07:59→15:20)
[2022-07-03] MEDS: Heparin Sodium,Porcine Flush 50 UNITS, 0.9 % Sodium Chloride Flush 5 ML IVFLUSH ×3 (08:07→19:50)
[2022-07-03] MEDS: ondansetron HCL 4 MG/2 ML VIAL IVPUSH ×2 (08:15→13:55)
[2022-07-03] MEDS: Nystatin Powder 15 GM BOTTLE 1 APPL TOPICAL ×2 (08:16→19:49)
--- NOTE | 2022-07-03 08:52 | P.PNGS_ITS ---
Subjective Subjective Date of Service: 07/03/22 Interval history: Feels better subjectively Not as short of breath Stoma with output Drains in place Physical Exam Vital Signs: Vital Signs: Last Vital Signs Temp 98 F 07/03/22 07:50 Pulse 120 H 07/03/22 07:50 Resp 20 07/03/22 07:50 BP 116/78 07/03/22 07:50 Pulse Ox 99 07/03/22 07:50 O2 Del Method 07/03/22 07:50 O2 Flow Rate 2 07/03/22 07:50 FiO2 97 07/01/22 20:00 Oxygen Flow Rate 35 06/13/22 21:00 BMI result Body Mass Index 35.7 Const: Other: Conversant this morning General: no acute distress Resp: Other: Minimal shortness of breath Cardio: Rate: tachycardic GI: Other: Stoma with good output, a little watery Palpation (GI): Soft to palpation, not firm and nontender Objective Data Active Medications Acetaminophen (Acetaminophen 325 Mg Tablet) 650 mg PO Q6H PRN PRN Reason: fever Last Admin: 06/30/22 06:27 Dose: 650 mg Documented By: DAVID Heparin Sodium (Porcine) 50 (units/ Sodium Chloride 5 ml) 0 units IVFLUSH TID [facility] Last Admin: 07/03/22 08:07 Dose: 50 unit Documented By: INDIRA Dicyclomine HCl (Dicyclomine Hcl 10 Mg Capsule) 20 mg PO TIDAC [facility] Last Admin: 07/03/22 07:59 Dose: 20 mg Documented By: INDIRA Duloxetine HCl (Duloxetine Hcl 60 Mg Capsule.) 60 mg PO BEDTIME [facility] Last Admin: 07/02/22 21:40 Dose: 60 mg Documented By: JENNIFER Enoxaparin Sodium (Enoxaparin Sodium 100 Mg/Ml Syringe) 90 mg 1 mg/kg (90 mg) SUBCUT Q12H [facility] Last Admin: 07/03/22 04:51 Dose: 90 mg Documented By: JONATHAN Gabapentin (Gabapentin 300 Mg Capsule) 300 mg PO BEDTIME [facility] Last Admin: 07/02/22 21:39 Dose: 300 mg Documented By: JENNIFER Hydromorphone HCl (Hydromorphone Hcl 0.5 Mg/0.5 Ml Syringe) 0.5 mg IVPUSH Q4H PRN; Protocol PRN Reason: mild pain Last Admin: 07/03/22 06:07 Dose: 0.5 mg Documented By: JONATHAN Voriconazole 200 mg/ Sodium (Chloride) 100 mls @ 50 mls/hr IV Q12H [facility] Last Infusion: 07/03/22 00:37 Dose: 0 mls/hr Documented By: JONATHAN Meropenem 1 gm/ Sodium (Chloride) 100 mls @ 200 mls/hr IV Q8H [facility] Last Admin: 07/03/22 08:05 Dose: 200 mls/hr Documented By: INDIRA Sodium Chloride (Ns) 1,000 mls @ 100 mls/hr IVCONT .Q10H [facility] Last Admin: 07/03/22 06:03 Dose: 100 mls/hr Documented By: JONATHAN Metronidazole (Flagyl) 500 mg in 100 mls @ 100 mls/hr IV Q8H [facility] Last Infusion: 07/03/22 06:18 Dose: 0 mls/hr Documented By: JONATHAN Metoprolol Tartrate (Metoprolol Tartrate 100 Mg Tablet) 100 mg PO BID [facility]; Protocol Last Admin: 07/01/22 08:09 Dose: 100 mg Documented By: LAUREN Patient Own Med ( (Ajovy 1.5 Ml)) 1.5 ml SUBCUT Q30D [facility] Last Admin: 06/30/22 13:56 Dose: 1.5 ml Documented By: LAKESHIA Nystatin (Nystatin Powder 15 Gm Bottle) 1 appl TOPICAL BID [facility]; Protocol Last Admin: 07/03/22 08:16 Dose: 1 appl Documented By: INDIRA Ondansetron HCl (Ondansetron Hcl 4 Mg/2 Ml Vial) 4 mg IVPUSH Q6H PRN PRN Reason: Nausea Last Admin: 07/03/22 08:15 Dose: 4 mg Documented By: INDIRA Oxycodone HCl (Oxycodone Hcl Immed Release 5 Mg Tablet) 5 mg PO Q4H PRN PRN Reason: mod-sev pain Last Admin: 07/03/22 00:35 Dose: 5 mg Documented By: JONATHAN Pharmacy Consult (Consult Rx Perform Med Rec) 1 each MISCELLANE ONCE PRN PRN Reason: Consult order Pharmacy Consult (Consult Rx Vancomycin Dosing) 1 each MISCELLANE DAILY PRN PRN Reason: Consult order Sodium Chloride (0.9 % Sodium Chloride Flush 3 Ml Syringe) 3 ml IVFLUSH QSHIFT [facility] Last Admin: 07/03/22 08:00 Dose: 3 ml Documented By: INDIRA Sumatriptan Succinate (Sumatriptan Succinate 6 Mg/0.5 Ml Vial) 6 mg SUBCUT DAILY PRN PRN Reason: migraine headache Topiramate (Topiramate 100 Mg Tablet) 200 mg PO BID [facility] Last Admin: 07/03/22 07:55 Dose: 200 mg Documented By: INDIRA Vancomycin HCl (Vancomycin Hcl 125 Mg Capsule) 500 mg PO Q6H [facility] Last Admin: 07/03/22 08:28 Dose: 500 mg Documented By: INDIRA Labs CBC & Chem 7: 07/03/22 05:45 07/03/22 05:45 Labs: Laboratory Results - last 24 hr 07/03/22 07/03/22 05:45 05:45 MCV 92.8 MCH 29.3 MCHC 31.6 RDW 17.1 H Plt Count 360 MPV 10.5 Immature Gran % (Auto) Cancelled Neut % (Auto) Cancelled Lymph % (Auto) Cancelled Cotton % (Auto) Cancelled Eos % (Auto) Cancelled Baso % (Auto) Cancelled Lymph # (Auto) Cancelled Cotton # (Auto) Cancelled Eos # (Auto) Cancelled Baso # (Auto) Cancelled Abs Immat Gran (auto) Cancelled Absolute Neuts (auto) Cancelled Absolute Nucleated RBC 0.000 Nucleated RBC % (auto) 0.0 Neutrophils % (Manual) 76 H Band Neutrophils % 14 H Lymphocytes % (Manual) 7 L Monocytes % (Manual) 3 Abs Neuts (Manual) 24.7 H Lymphocytes # (Manual) 1.9 Monocytes # (Manual) 0.8 Platelet Estimate NORMAL Large Platelets PRESENT Plt Morphology Comment NOTED RBC Morphology NOTED Polychromasia 1+ (0-2) Macrocytosis 1+ (5-14) Ovalocytes 1+ (5-14) Acanthocytes (Spur) 1+ (0-2) Anion Gap 15 Estim Creat Clear Calc 141.0 Estimated GFR > 60 Fasting Glucose 98 Calcium 8.0 L Total Bilirubin 0.2 AST 9 ALT < 6 Alkaline Phosphatase 109 Total Protein 4.5 L Albumin 2.4 L Microbiology Microbiology Results: Microbiology 07/01/22 16:44 Blood Culture - Preliminary Blood - Venous No growth after 24 hours. 07/01/22 16:45 Blood Culture - Preliminary Blood - Venous No growth after 24 hours. 06/30/22 07:05 Blood Culture - Preliminary Blood - Venous No growth after 48 hours. 06/30/22 07:05 Blood Culture - Preliminary Blood - Venous No growth after 48 hours. Procedures Date of Service Date of Service: 07/03/22 Arterial Line Size (Gauge): 16 Progress Note: A&P Assessment and plan (1) Colitis due to Clostridioides difficile: Status: Acute Assessment and Plan: Abdominal pain better WBC slowly drifting down Fever pattern also improved Abdominal exam soft and benign Continue treatment for C diff colitis Out of bed to chair and advance diet as tolerated Time Spent With Patient Time: Total time spent is greater than 50% in coordination of care (as documented) at patient's floor/unit and/or counseling patient: Quality Stroke Does the patient have a stroke diagnosis?: No VTE Prior VTE?: No VTE Risk Level:: Medical - moderate - high VTE Device Contraindication: N/A - Device Ordered VTE Drug Contraindication: N/A - Med Ordered
--- NOTE | 2022-07-03 10:34 | MHC.CLN ---
F/U PT WORKING WITH THERAPY UPON INTERVIEW PT STATED SHE FEELS BLOATED TODAY AND CAUSING DECREASED PO PO INTAKE 50%AVG DIET RX: REGULAR-APPROPRIATE PT PREFERS SMALLER PORTIONS WITH MEALS PT ACCEPTING AND DRINKING ENSURE VANILLA TID PROVIDES 1050KCALS, 60G PROTEIN PT STATED, BEEN DRINKING SOME -NOTED ENSURE AT BEDSIDE CONTINUE TO MONITOR PO INTAKE CLOSELY
[2022-07-03] MEDS: Voriconazole 200 MG in 0.9 % Sodium Chloride 100 ML 50 MG IV ×2 (10:40→21:29)
--- NOTE | 2022-07-03 11:13 | MHC.CM.PN ---
SNF search referrals have been updated and CM will continue to follow for when Patient is medically cleared for dc.
--- NOTE | 2022-07-03 13:00 | P.PNIM_ITS ---
Subjective Subjective Date of Service: 07/03/22 Interval History: States feel somewhat better but extremely fatigued. Remains afebrile Review of Systems Denies chest pain Denies shortness of breath Denies nausea vomiting diarrhea Denies fever chills Physical Exam Vital Signs: Vital Signs: Last Vital Signs Temp 98 F 07/03/22 11:38 Pulse 120 H 07/03/22 11:38 Resp 18 07/03/22 11:38 BP 122/66 07/03/22 11:38 Pulse Ox 99 07/03/22 11:38 O2 Del Method 07/03/22 11:38 O2 Flow Rate 2 07/03/22 07:50 FiO2 97 07/01/22 20:00 Oxygen Flow Rate 35 06/13/22 21:00 BMI result Body Mass Index 35.7 Const: Other: No acute distress Resp: Other: Clear to auscultation bilaterally no rales rhonchi or wheezes Cardio: Other: No S4; positive S1-S2; no S3 murmurs rubs or gallops GI: Other: Soft nontender nondistended normoactive bowel sounds. Stoma in place, functioning well, loose stool identified.? NOHEMI is intact with scant output.? Inspection: No distended? Palpation (GI): Soft to palpation Extrem: Other: No edema bilaterally Objective Data Active Medications Acetaminophen (Acetaminophen 325 Mg Tablet) 650 mg PO Q6H PRN PRN Reason: fever Last Admin: 06/30/22 06:27 Dose: 650 mg Documented By: DAVID Heparin Sodium (Porcine) 50 (units/ Sodium Chloride 5 ml) 0 units IVFLUSH TID [facility] Last Admin: 07/03/22 08:07 Dose: 50 unit Documented By: INDIRA Dicyclomine HCl (Dicyclomine Hcl 10 Mg Capsule) 20 mg PO TIDAC [facility] Last Admin: 07/03/22 12:43 Dose: 20 mg Documented By: INDIRA Duloxetine HCl (Duloxetine Hcl 60 Mg Capsule.) 60 mg PO BEDTIME [facility] Last Admin: 07/02/22 21:40 Dose: 60 mg Documented By: JENNIFER Enoxaparin Sodium (Enoxaparin Sodium 100 Mg/Ml Syringe) 90 mg 1 mg/kg (90 mg) SUBCUT Q12H [facility] Last Admin: 07/03/22 04:51 Dose: 90 mg Documented By: JONATHAN Gabapentin (Gabapentin 300 Mg Capsule) 300 mg PO BEDTIME [facility] Last Admin: 07/02/22 21:39 Dose: 300 mg Documented By: JENNIFER Hydromorphone HCl (Hydromorphone Hcl 0.5 Mg/0.5 Ml Syringe) 0.5 mg IVPUSH Q4H PRN; Protocol PRN Reason: mild pain Last Admin: 07/03/22 10:48 Dose: 0.5 mg Documented By: INDIRA Voriconazole 200 mg/ Sodium (Chloride) 100 mls @ 50 mls/hr IV Q12H [facility] Last Infusion: 07/03/22 12:53 Dose: 0 mls/hr Documented By: INDIRA Meropenem 1 gm/ Sodium (Chloride) 100 mls @ 200 mls/hr IV Q8H [facility] Last Infusion: 07/03/22 09:21 Dose: 0 mls/hr Documented By: INDIRA Sodium Chloride (Ns) 1,000 mls @ 100 mls/hr IVCONT .Q10H [facility] Last Infusion: 07/03/22 12:54 Dose: 0 mls/hr Documented By: INDIRA Metronidazole (Flagyl) 500 mg in 100 mls @ 100 mls/hr IV Q8H [facility] Last Admin: 07/03/22 12:45 Dose: 100 mls/hr Documented By: INDIRA Metoprolol Tartrate (Metoprolol Tartrate 100 Mg Tablet) 100 mg PO BID [facility]; Protocol Last Admin: 07/01/22 08:09 Dose: 100 mg Documented By: LAUREN Patient Own Med ( (Ajovy 1.5 Ml)) 1.5 ml SUBCUT Q30D [facility] Last Admin: 06/30/22 13:56 Dose: 1.5 ml Documented By: LAKESHIA Nystatin (Nystatin Powder 15 Gm Bottle) 1 appl TOPICAL BID [facility]; Protocol Last Admin: 07/03/22 08:16 Dose: 1 appl Documented By: INDIRA Ondansetron HCl (Ondansetron Hcl 4 Mg/2 Ml Vial) 4 mg IVPUSH Q6H PRN PRN Reason: Nausea Last Admin: 07/03/22 08:15 Dose: 4 mg Documented By: INDIRA Oxycodone HCl (Oxycodone Hcl Immed Release 5 Mg Tablet) 5 mg PO Q4H PRN PRN Reason: mod-sev pain Last Admin: 07/03/22 09:26 Dose: 5 mg Documented By: INDIRA Pharmacy Consult (Consult Rx Perform Med Rec) 1 each MISCELLANE ONCE PRN PRN Reason: Consult order Pharmacy Consult (Consult Rx Vancomycin Dosing) 1 each MISCELLANE DAILY PRN PRN Reason: Consult order Sodium Chloride (0.9 % Sodium Chloride Flush 3 Ml Syringe) 3 ml IVFLUSH QSHIFT [facility] Last Admin: 07/03/22 08:00 Dose: 3 ml Documented By: INDIRA Sumatriptan Succinate (Sumatriptan Succinate 6 Mg/0.5 Ml Vial) 6 mg SUBCUT DAILY PRN PRN Reason: migraine headache Topiramate (Topiramate 100 Mg Tablet) 200 mg PO BID [facility] Last Admin: 07/03/22 07:55 Dose: 200 mg Documented By: INDIRA Vancomycin HCl (Vancomycin Hcl 125 Mg Capsule) 500 mg PO Q6H [facility] Last Admin: 07/03/22 08:28 Dose: 500 mg Documented By: INDIRA Labs CBC & Chem 7: 07/03/22 05:45 07/03/22 05:45 Labs: Laboratory Results - last 24 hr 07/03/22 07/03/22 05:45 05:45 MCV 92.8 MCH 29.3 MCHC 31.6 RDW 17.1 H Plt Count 360 MPV 10.5 Immature Gran % (Auto) Cancelled Neut % (Auto) Cancelled Lymph % (Auto) Cancelled [place]ison % (Auto) Cancelled Eos % (Auto) Cancelled Baso % (Auto) Cancelled Lymph # (Auto) Cancelled [place]ison # (Auto) Cancelled Eos # (Auto) Cancelled Baso # (Auto) Cancelled Abs Immat Gran (auto) Cancelled Absolute Neuts (auto) Cancelled Absolute Nucleated RBC 0.000 Nucleated RBC % (auto) 0.0 Neutrophils % (Manual) 76 H Band Neutrophils % 14 H Lymphocytes % (Manual) 7 L Monocytes % (Manual) 3 Abs Neuts (Manual) 24.7 H Lymphocytes # (Manual) 1.9 Monocytes # (Manual) 0.8 Platelet Estimate NORMAL Large Platelets PRESENT Plt Morphology Comment NOTED RBC Morphology NOTED Polychromasia 1+ (0-2) Macrocytosis 1+ (5-14) Ovalocytes 1+ (5-14) Acanthocytes (Spur) 1+ (0-2) Anion Gap 15 Estim Creat Clear Calc 141.0 Estimated GFR > 60 Fasting Glucose 98 Calcium 8.0 L Total Bilirubin 0.2 AST 9 ALT < 6 Alkaline Phosphatase 109 Total Protein 4.5 L Albumin 2.4 L Microbiology Microbiology Results: Microbiology 07/01/22 16:44 Blood Culture - Preliminary Blood - Venous No growth after 24 hours. 07/01/22 16:45 Blood Culture - Preliminary Blood - Venous No growth after 24 hours. 06/30/22 07:05 Blood Culture - Preliminary Blood - Venous No growth after 48 hours. 06/30/22 07:05 Blood Culture - Preliminary Blood - Venous No growth after 48 hours. Assessment and Plan (1) Colitis due to Clostridioides difficile: Status: Acute (2) Peritonitis: Status: Acute Plan 62yo F admitted 05/18/22 with colitis/Crohn's flare. Flex sig showed perforation with abscess; taken to OR for ex-lap with colostomy after found to have extensive fecal soilage in peritoneum. Severely septic, sent to ICU intubated. Course since then complicated by multiple intra-abdominal abscesses causing fev ers, with multiple drains placed by IR. Treated with metronidazole + meropenem and given TPN. Extubated 06/07/22, transitioned to tube feeds and then to oral diet.Now with C difficile colitis, severe 1.C difficile colitis - fidoxamicin (11/17). -switch to PO/MT vancomycin plus IV metronidazole if clinically indicated 2.Fungal Peritonitis - voriconazole (05/07) [can change to oral upon eventual discharge] - ID re-consult pending 3.LUE DVT(catheter-associated) - midline catheter removed, continue enoxaparin 1 mg/kg q12h 4.SABINE - resolved -follow renals/divalents VTE ppx: LMWH # dispo: will need rehab, likely [facility] Patient requires continued hospitalization secondary to the need for placement Quality Stroke Does the patient have a stroke diagnosis?: No VTE Prior VTE?: No VTE Risk Level:: Medical - moderate - high VTE Device Contraindication: N/A - Device Ordered VTE Drug Contraindication: N/A - Med Ordered
--- NOTE | 2022-07-03 16:55 | P.PNGI_ITS ---
Subjective Subjective Date of Service: 07/03/22 Interval History: feels better than yesterday Critical Care Time (minutes): 0 Physical Exam Vital Signs: Vital Signs: Last Vital Signs Temp 99.4 F 07/03/22 15:13 Pulse 125 H 07/03/22 15:13 Resp 17 07/03/22 15:13 BP 117/62 07/03/22 15:13 Pulse Ox 99 07/03/22 15:13 O2 Del Method 07/03/22 15:13 O2 Flow Rate 2 07/03/22 07:50 FiO2 97 07/01/22 20:00 Oxygen Flow Rate 35 06/13/22 21:00 BMI result Body Mass Index 35.7 Const: Other: alert GI: Other: abdomen is soft. Objective Data Labs CBC & Chem 7: 07/03/22 05:45 07/03/22 05:45 Labs: Laboratory Results - last 24 hr 07/03/22 07/03/22 05:45 05:45 WBC 27.4 H RBC 2.76 L Hgb 8.1 L Hct 25.6 L MCV 92.8 MCH 29.3 MCHC 31.6 RDW 17.1 H Plt Count 360 MPV 10.5 Immature Gran % (Auto) Cancelled Neut % (Auto) Cancelled Lymph % (Auto) Cancelled [place] % (Auto) Cancelled Eos % (Auto) Cancelled Baso % (Auto) Cancelled Lymph # (Auto) Cancelled [place] # (Auto) Cancelled Eos # (Auto) Cancelled Baso # (Auto) Cancelled Abs Immat Gran (auto) Cancelled Absolute Neuts (auto) Cancelled Absolute Nucleated RBC 0.000 Nucleated RBC % (auto) 0.0 Neutrophils % (Manual) 76 H Band Neutrophils % 14 H Lymphocytes % (Manual) 7 L Monocytes % (Manual) 3 Abs Neuts (Manual) 24.7 H Lymphocytes # (Manual) 1.9 Monocytes # (Manual) 0.8 Platelet Estimate NORMAL Large Platelets PRESENT Plt Morphology Comment NOTED RBC Morphology NOTED Polychromasia 1+ (0-2) Macrocytosis 1+ (5-14) Ovalocytes 1+ (5-14) Acanthocytes (Spur) 1+ (0-2) Sodium 136 Potassium 3.5 Chloride 103 Carbon Dioxide 22 Anion Gap 15 BUN 10 Creatinine 0.45 L Estim Creat Clear Calc 141.0 Estimated GFR > 60 Fasting Glucose 98 Calcium 8.0 L Total Bilirubin 0.2 AST 9 ALT < 6 Alkaline Phosphatase 109 Total Protein 4.5 L Albumin 2.4 L Microbiology Microbiology Results: Microbiology 07/01/22 16:44 Blood - Venous Blood Culture - Preliminary No growth after 24 hours. 07/01/22 16:45 Blood - Venous Blood Culture - Preliminary No growth after 24 hours. 06/30/22 07:05 Blood - Venous Blood Culture - Preliminary No growth after 48 hours. 06/30/22 07:05 Blood - Venous Blood Culture - Preliminary No growth after 48 hours. 06/27/22 01:16 Blood - Venous Blood Culture - Final No growth after 5 days. 06/27/22 01:16 Blood - Venous Blood Culture - Final No growth after 5 days. 06/22/22 16:30 Abdominal Fluid Gram Stain - Final 06/22/22 16:30 Abdominal Fluid Routine Culture - Preliminary Ver[place]ica albicans 06/22/22 16:30 Abdominal Fluid Anaerobic Culture - Final NO GROWTH AFTER 5 DAYS 06/24/22 06:14 Blood - Venous Blood Culture - Final No growth after 5 days. 06/24/22 06:14 Blood - Venous Blood Culture - Final No growth after 5 days. 06/02/22 Unknown Abscess Intra-abdominal Fungal Identification - Preliminary Verónica dubliniensis 06/03/22 15:28 Blood - Subclavian Blood Culture - Final No growth after 5 days. 06/03/22 06:15 Blood - Venous Blood Culture - Final No growth after 5 days. 06/03/22 06:15 Blood - Venous Blood Culture - Final No growth after 5 days. 06/02/22 Unknown Peritoneal Fluid Gram Stain - Final 06/02/22 Unknown Peritoneal Fluid Routine Culture - Final Verónica albicans 06/02/22 Unknown Peritoneal Fluid Anaerobic Culture - Final 05/29/22 15:14 Blood - Venous Blood Culture - Final No growth after 5 days. 05/29/22 15:13 Blood - Venous Blood Culture - Final No growth after 5 days. 05/29/22 05:14 Blood - Venous Blood Culture - Final No growth after 5 days. 05/29/22 05:14 Blood - Venous Blood Culture - Final No growth after 5 days. 06/02/22 Unknown Abscess Intra-abdominal Gram Stain - Final 06/02/22 Unknown Abscess Intra-abdominal Routine Culture - Final 06/02/22 Unknown Abscess Intra-abdominal Anaerobic Culture - Final 06/02/22 Unknown Abscess Intra-abdominal Gram Stain - Final 06/02/22 Unknown Abscess Intra-abdominal Routine Culture - Final 05/28/22 Unknown Peritoneal Fluid Gram Stain - Final 05/28/22 Unknown Peritoneal Fluid Anaerobic Culture - Final 05/28/22 Unknown Peritoneal Fluid Body Fluid Culture - Final Verónica dubliniensis 05/29/22 15:05 Sputum - Suctioned Gram Stain - Final 05/29/22 15:05 Sputum - Suctioned Sputum Culture - Final Verónica dubliniensis 05/28/22 16:47 Sputum - Suctioned Gram Stain - Final 05/28/22 16:47 Sputum - Suctioned Sputum Culture - Final Verónica albicans 05/23/22 Unknown Peritoneal Fluid Gram Stain - Final 05/23/22 Unknown Peritoneal Fluid Routine Culture - Final Escherichia coli 05/23/22 Unknown Peritoneal Fluid Anaerobic Culture - Final Clostridium perfringens Bacteroides thetaiotaomicron 05/19/22 08:49 Blood - Venous Blood Culture - Final No growth after 5 days. 05/19/22 08:49 Blood - Venous Blood Culture - Final No growth after 5 days. Procedures Date of Service Date of Service: 07/03/22 Arterial Line Size (Gauge): 16 Progress Note: A&P Assessment and plan (1) Perforated viscus: Status: Acute Assessment and Plan: continue present treatment for c diff colitis Time Spent With Patient Time: Total time spent is greater than 50% in coordination of care (as documented) at patient's floor/unit and/or counseling patient: Quality Stroke Does the patient have a stroke diagnosis?: No VTE Prior VTE?: No VTE Risk Level:: Medical - moderate - high VTE Device Contraindication: N/A - Device Ordered VTE Drug Contraindication: N/A - Med Ordered
[2022-07-03] MEDS: DULoxetine HCl 60 MG CAPSULE.DR PO (19:48)
[2022-07-03] MEDS: Gabapentin 300 MG CAPSULE PO (19:49)
[2022-07-04] MEDS: metroNIDAZOLE/NS 500 MG/100 ML PIGGYBACK 100 MG IV ×3 (02:34→18:25)
[2022-07-04] MEDS: vancomycin HCL 125 MG CAPSULE 500 MG PO ×4 (02:38→21:27)
[2022-07-04 04:00] VITALS: BP 136/75; PULSE 118; RESP 14; TEMP 37; O2SAT 99
[2022-07-04] MEDS: Enoxaparin Sodium 100 MG/ML SYRINGE 90 MG SUBCUT ×2 (05:13→16:36)
[2022-07-04 06:00] VITALS: BMI 36.1
[2022-07-04 06:41] LABS: Hematocrit 27.4 % (37.0-47.0); Hemoglobin 8.8 g/dl (12.0-16.0); Mean Corpuscular HGB Conc 32.1 g/dl (31.0-35.0); Mean Corpuscular Hemoglobin 29.6 pg (27.0-33.0); Mean Corpuscular Volume 92.3 fL (80.0-98.0); Mean Platelet Volume 10.4 fL (9.4-12.3); Platelet Count 379 X10*3/uL (160-400); Red Blood Count 2.97 X10*6/uL (4.20-5.50); Red Cell Distribution Width 17.2 % (11.0-16.0)
[2022-07-04 06:56] LABS: Alanine Aminotransferase < 6 U/L (0-31); Albumin Level 2.4 g/dL (3.5-5.0); Alkaline Phosphatase 111 U/L (39-117); Anion Gap 13 (12-20); Aspartate Amino Transferase 11 U/L (5-31); Bilirubin Total 0.2 mg/dL (0.0-1.0); Blood Urea Nitrogen 9 mg/dL (9-16); Calcium 8.1 mg/dL (8.4-10.2); Carbon Dioxide 24 mmol/L (22-29); Chloride 103 mmol/L (96-108); Creatinine Clr Calc Pharmacy 144.9; Estimated Glomerular Filt Rate > 60; Glucose Fasting 105 mg/dL (60-99); Potassium 3.6 mmol/L (3.3-5.1); Sodium 136 mmol/L (135-145); Total Protein 4.6 g/dL (6.5-8.0)
[2022-07-04 07:10] LABS: Band Neutrophils Percent 9 % (3-5); Basophils Abs Manual 0.2 X10*3/uL (0.0-0.2); Basophils Percent Manual 1 % (0-2); Eosinophils Absolute Manual 0.8 X10*3/uL (0.0-0.4); Eosinophils Percent Manual 5 % (0-4); Lymphocytes Absolute Manual 1.9 X10*3/uL (1.2-4.9); Lymphocytes Percent Manual 12 % (20-40); Metamyelocytes Absolute 0.2 X10*3/uL; Metamyelocytes Percent 1 %; Monocytes Percent Manual 6 % (2-11); Neutrophils Percent Manual 66 % (45-73)
[2022-07-04 07:11] VITALS: BP 116/76; PULSE 119; RESP 16; TEMP 36.4; O2SAT 99
[2022-07-04 07:13] LABS: Acanthocytes 1+ (0-2) /OIF; Basophilic Stippling 1+ (0-2) /OIF; Hypochromasia 1+ (5-14) /OIF; RBC Morphology NOTED
[2022-07-04 07:14] LABS: Dohle Bodies PRESENT; Platelet Estimate NORMAL (NORMAL); Platelet Morphology Comment NORMAL; Polychromasia 1+ (0-2) /OIF
[2022-07-04] MEDS: Dicyclomine HCl 10 MG CAPSULE 20 MG PO ×3 (07:49→15:37)
[2022-07-04] MEDS: Topiramate 100 MG TABLET 200 MG PO ×2 (07:49→21:28)
[2022-07-04] MEDS: Heparin Sodium,Porcine Flush 50 UNITS, 0.9 % Sodium Chloride Flush 5 ML IVFLUSH ×3 (07:51→21:29)
[2022-07-04] MEDS: HYDROmorphone HCl 0.5 MG/0.5 ML SYRINGE IVPUSH ×3 (08:14→23:04)
[2022-07-04] MEDS: Nystatin Powder 15 GM BOTTLE 1 APPL TOPICAL ×2 (08:22→21:29)
[2022-07-04] MEDS: Voriconazole 200 MG in 0.9 % Sodium Chloride 100 ML 50 MG IV ×2 (09:35→23:01)
[2022-07-04] MEDS: 0.9 % Sodium Chloride Flush 3 ML SYRINGE IVFLUSH ×3 (09:37→21:30)
[2022-07-04 11:26] VITALS: BP 133/86; PULSE 114; RESP 18; TEMP 36.2; O2SAT 97
[2022-07-04] MEDS: oxyCODONE HCl Immed Release 5 MG TABLET 10 MG PO ×2 (11:34→21:28)
--- NOTE | 2022-07-04 13:03 | P.PNGS_ITS ---
Subjective Subjective Date of Service: 07/05/22 Interval history: Feels well today says she did physical therapy ral intake better Physical Exam Vital Signs: Vital Signs: Last Vital Signs Temp 97.2 F 07/04/22 11:26 Pulse 114 H 07/04/22 11:26 Resp 18 07/04/22 11:26 BP 133/86 07/04/22 11:26 Pulse Ox 97 07/04/22 11:26 O2 Del Method 07/04/22 11:26 O2 Flow Rate 2 07/04/22 11:26 FiO2 97 07/01/22 20:00 Oxygen Flow Rate 35 06/13/22 21:00 BMI result Body Mass Index 36.1 Const: Other: very conversant, mild shortness of breath Resp: Other: mild shortness of breath Cardio: Rate: tachycardic GI: Other: soft, stoma with good output Objective Data Active Medications Acetaminophen (Acetaminophen 325 Mg Tablet) 650 mg PO Q6H PRN PRN Reason: fever Last Admin: 06/30/22 06:27 Dose: 650 mg Documented By: DAVID Heparin Sodium (Porcine) 50 (units/ Sodium Chloride 5 ml) 0 units IVFLUSH TID COUNTS INCLUDE 234 BEDS AT THE [facility] Last Admin: 07/04/22 07:51 Dose: 50 unit Documented By: INDIRA Dicyclomine HCl (Dicyclomine Hcl 10 Mg Capsule) 20 mg PO TIDAC COUNTS INCLUDE 234 BEDS AT THE [facility] Last Admin: 07/04/22 11:34 Dose: 20 mg Documented By: INDIRA Duloxetine HCl (Duloxetine Hcl 60 Mg Capsule.) 60 mg PO BEDTIME COUNTS INCLUDE 234 BEDS AT THE [facility] Last Admin: 07/03/22 19:48 Dose: 60 mg Documented By: FRANTZ Enoxaparin Sodium (Enoxaparin Sodium 100 Mg/Ml Syringe) 90 mg 1 mg/kg (90 mg) SUBCUT Q12H COUNTS INCLUDE 234 BEDS AT THE [facility] Last Admin: 07/04/22 05:13 Dose: 90 mg Documented By: FRANTZ Gabapentin (Gabapentin 300 Mg Capsule) 300 mg PO BEDTIME COUNTS INCLUDE 234 BEDS AT THE [facility] Last Admin: 07/03/22 19:49 Dose: 300 mg Documented By: FRANTZ Hydromorphone HCl (Hydromorphone Hcl 0.5 Mg/0.5 Ml Syringe) 0.5 mg IVPUSH Q4H PRN; Protocol PRN Reason: mild pain Last Admin: 07/04/22 08:14 Dose: 0.5 mg Documented By: INDIRA Voriconazole 200 mg/ Sodium (Chloride) 100 mls @ 50 mls/hr IV Q12H COUNTS INCLUDE 234 BEDS AT THE [facility] Last Infusion: 07/04/22 11:45 Dose: 0 mls/hr Documented By: INDIRA Meropenem 1 gm/ Sodium (Chloride) 100 mls @ 200 mls/hr IV Q8H COUNTS INCLUDE 234 BEDS AT THE [facility] Last Infusion: 07/04/22 08:47 Dose: 0 mls/hr Documented By: INDIRA Metronidazole (Flagyl) 500 mg in 100 mls @ 100 mls/hr IV Q8H COUNTS INCLUDE 234 BEDS AT THE [facility] Last Admin: 07/04/22 11:30 Dose: 100 mls/hr Documented By: INDIRA Metoprolol Tartrate (Metoprolol Tartrate 100 Mg Tablet) 100 mg PO BID COUNTS INCLUDE 234 BEDS AT THE [facility]; Protocol Last Admin: 07/01/22 08:09 Dose: 100 mg Documented By: LAUREN Patient Own Med ( (Ajovy 1.5 Ml)) 1.5 ml SUBCUT Q30D COUNTS INCLUDE 234 BEDS AT THE [facility] Last Admin: 06/30/22 13:56 Dose: 1.5 ml Documented By: LAKESHIA Nystatin (Nystatin Powder 15 Gm Bottle) 1 appl TOPICAL BID COUNTS INCLUDE 234 BEDS AT THE [facility]; Protocol Last Admin: 07/04/22 08:22 Dose: 1 appl Documented By: INDIRA Ondansetron HCl (Ondansetron Hcl 4 Mg/2 Ml Vial) 4 mg IVPUSH Q6H PRN PRN Reason: Nausea Last Admin: 07/03/22 13:55 Dose: 4 mg Documented By: INDIRA Oxycodone HCl (Oxycodone Hcl Immed Release 5 Mg Tablet) 10 mg PO Q4H PRN PRN Reason: Pain, Moderate (Pain Scale 4-6 Last Admin: 07/04/22 11:34 Dose: 10 mg Documented By: INDIRA Pharmacy Consult (Consult Rx Perform Med Rec) 1 each MISCELLANE ONCE PRN PRN Reason: Consult order Pharmacy Consult (Consult Rx Vancomycin Dosing) 1 each MISCELLANE DAILY PRN PRN Reason: Consult order Sodium Chloride (0.9 % Sodium Chloride Flush 3 Ml Syringe) 3 ml IVFLUSH QSHIFT COUNTS INCLUDE 234 BEDS AT THE [facility] Last Admin: 07/04/22 09:37 Dose: 3 ml Documented By: INDIRA Sumatriptan Succinate (Sumatriptan Succinate 6 Mg/0.5 Ml Vial) 6 mg SUBCUT DAILY PRN PRN Reason: migraine headache Topiramate (Topiramate 100 Mg Tablet) 200 mg PO BID COUNTS INCLUDE 234 BEDS AT THE [facility] Last Admin: 07/04/22 07:49 Dose: 200 mg Documented By: INDIRA Vancomycin HCl (Vancomycin Hcl 125 Mg Capsule) 500 mg PO Q6H COUNTS INCLUDE 234 BEDS AT THE [facility] Last Admin: 07/04/22 07:50 Dose: 500 mg Documented By: INDIRA Labs CBC & Chem 7: 07/05/22 06:37 07/05/22 06:37 Labs: Laboratory Results - last 24 hr 07/04/22 07/04/22 05:45 05:45 MCV 92.3 MCH 29.6 MCHC 32.1 RDW 17.2 H Plt Count 379 MPV 10.4 Immature Gran % (Auto) Cancelled Neut % (Auto) Cancelled Lymph % (Auto) Cancelled [place] % (Auto) Cancelled Eos % (Auto) Cancelled Baso % (Auto) Cancelled Lymph # (Auto) Cancelled [place] # (Auto) Cancelled Eos # (Auto) Cancelled Baso # (Auto) Cancelled Abs Immat Gran (auto) Cancelled Absolute Neuts (auto) Cancelled Absolute Nucleated RBC 0.000 Nucleated RBC % (auto) 0.0 Neutrophils % (Manual) 66 Band Neutrophils % 9 H Lymphocytes % (Manual) 12 L Monocytes % (Manual) 6 Eosinophils % (Manual) 5 H Basophils % (Manual) 1 Metamyelocytes % 1 Abs Neuts (Manual) 12.0 H Lymphocytes # (Manual) 1.9 Monocytes # (Manual) 1.0 Eosinophils # (Manual) 0.8 H Basophils # (Manual) 0.2 Metamyelocytes # 0.2 Dohle Bodies PRESENT Platelet Estimate NORMAL Plt Morphology Comment NORMAL RBC Morphology NOTED Polychromasia 1+ (0-2) Hypochromasia 1+ (5-14) Basophilic Stippling 1+ (0-2) Acanthocytes (Spur) 1+ (0-2) Anion Gap 13 Estim Creat Clear Calc 144.9 Estimated GFR > 60 Fasting Glucose 105 H Calcium 8.1 L Total Bilirubin 0.2 AST 11 ALT < 6 Alkaline Phosphatase 111 Total Protein 4.6 L Albumin 2.4 L Microbiology Microbiology Results: Microbiology 07/01/22 16:44 Blood Culture - Preliminary Blood - Venous No growth after 48 hours. 07/01/22 16:45 Blood Culture - Preliminary Blood - Venous No growth after 48 hours. Procedures Date of Service Date of Service: 07/04/22 Arterial Line Size (Gauge): 16 Progress Note: A&P Assessment and plan (1) Status post colostomy: Status: Acute Assessment and Plan: no fever today WBC down looks more comfortable p.o. intake seems better stoma functioning undergoing treatment for C diff - on p.o. eltono has started physical therapy Time Spent With Patient Time: Total time spent is greater than 50% in coordination of care (as documented) at patient's floor/unit and/or counseling patient: Quality Stroke Does the patient have a stroke diagnosis?: No VTE Prior VTE?: No VTE Risk Level:: Medical - moderate - high VTE Device Contraindication: N/A - Device Ordered VTE Drug Contraindication: N/A - Med Ordered
--- NOTE | 2022-07-04 13:34 | HO.PM.IMPN ---
Subjective Subjective Date of Service: 07/04/22 Interval History: Feels a little better today. Able to work with physical therapy Review of Systems Denies chest pain Denies shortness of breath Denies nausea vomiting diarrhea Denies fever chills Physical Exam Vital Signs: Vital Signs: Last Vital Signs Temp 97.2 F 07/04/22 11:26 Pulse 114 H 07/04/22 11:26 Resp 18 07/04/22 11:26 BP 133/86 07/04/22 11:26 Pulse Ox 97 07/04/22 11:26 O2 Del Method 07/04/22 11:26 O2 Flow Rate 2 07/04/22 11:26 FiO2 97 07/01/22 20:00 Oxygen Flow Rate 35 06/13/22 21:00 BMI result Body Mass Index 36.1 Const: Other: No acute distress Resp: Other: Clear to auscultation bilaterally no rales rhonchi or wheezes Cardio: Other: No S4; positive S1-S2; no S3 murmurs rubs or gallops GI: Other: Soft nontender nondistended normoactive bowel sounds. Stoma in place, functioning well, loose stool identified.? NOHEMI is intact with scant output.? Inspection: No distended? Palpation (GI): Soft to palpation Extrem: Other: No edema bilaterally Objective Data Active Medications Acetaminophen (Acetaminophen 325 Mg Tablet) 650 mg PO Q6H PRN PRN Reason: fever Last Admin: 06/30/22 06:27 Dose: 650 mg Documented By: DAVID Heparin Sodium (Porcine) 50 (units/ Sodium Chloride 5 ml) 0 units IVFLUSH TID [facility] Last Admin: 07/04/22 07:51 Dose: 50 unit Documented By: INDIRA Dicyclomine HCl (Dicyclomine Hcl 10 Mg Capsule) 20 mg PO TIDAC [facility] Last Admin: 07/04/22 11:34 Dose: 20 mg Documented By: INDIRA Duloxetine HCl (Duloxetine Hcl 60 Mg Capsule.) 60 mg PO BEDTIME [facility] Last Admin: 07/03/22 19:48 Dose: 60 mg Documented By: FRANTZ Enoxaparin Sodium (Enoxaparin Sodium 100 Mg/Ml Syringe) 90 mg 1 mg/kg (90 mg) SUBCUT Q12H [facility] Last Admin: 07/04/22 05:13 Dose: 90 mg Documented By: FRANTZ Gabapentin (Gabapentin 300 Mg Capsule) 300 mg PO BEDTIME [facility] Last Admin: 07/03/22 19:49 Dose: 300 mg Documented By: FRANTZ Hydromorphone HCl (Hydromorphone Hcl 0.5 Mg/0.5 Ml Syringe) 0.5 mg IVPUSH Q4H PRN; Protocol PRN Reason: mild pain Last Admin: 07/04/22 08:14 Dose: 0.5 mg Documented By: INDIRA Voriconazole 200 mg/ Sodium (Chloride) 100 mls @ 50 mls/hr IV Q12H [facility] Last Infusion: 07/04/22 11:45 Dose: 0 mls/hr Documented By: INDIRA Meropenem 1 gm/ Sodium (Chloride) 100 mls @ 200 mls/hr IV Q8H [facility] Last Infusion: 07/04/22 08:47 Dose: 0 mls/hr Documented By: INDIRA Metronidazole (Flagyl) 500 mg in 100 mls @ 100 mls/hr IV Q8H [facility] Last Infusion: 07/04/22 13:08 Dose: 0 mls/hr Documented By: INDIRA Metoprolol Tartrate (Metoprolol Tartrate 100 Mg Tablet) 100 mg PO BID [facility]; Protocol Last Admin: 07/01/22 08:09 Dose: 100 mg Documented By: LAUREN Patient Own Med ( (Ajovy 1.5 Ml)) 1.5 ml SUBCUT Q30D [facility] Last Admin: 06/30/22 13:56 Dose: 1.5 ml Documented By: LAKESHIA Nystatin (Nystatin Powder 15 Gm Bottle) 1 appl TOPICAL BID [facility]; Protocol Last Admin: 07/04/22 08:22 Dose: 1 appl Documented By: INDIRA Ondansetron HCl (Ondansetron Hcl 4 Mg/2 Ml Vial) 4 mg IVPUSH Q6H PRN PRN Reason: Nausea Last Admin: 07/03/22 13:55 Dose: 4 mg Documented By: INDIRA Oxycodone HCl (Oxycodone Hcl Immed Release 5 Mg Tablet) 10 mg PO Q4H PRN PRN Reason: Pain, Moderate (Pain Scale 4-6 Last Admin: 07/04/22 11:34 Dose: 10 mg Documented By: INDIRA Pharmacy Consult (Consult Rx Perform Med Rec) 1 each MISCELLANE ONCE PRN PRN Reason: Consult order Pharmacy Consult (Consult Rx Vancomycin Dosing) 1 each MISCELLANE DAILY PRN PRN Reason: Consult order Sodium Chloride (0.9 % Sodium Chloride Flush 3 Ml Syringe) 3 ml IVFLUSH QSHIFT [facility] Last Admin: 07/04/22 09:37 Dose: 3 ml Documented By: INDIRA Sumatriptan Succinate (Sumatriptan Succinate 6 Mg/0.5 Ml Vial) 6 mg SUBCUT DAILY PRN PRN Reason: migraine headache Topiramate (Topiramate 100 Mg Tablet) 200 mg PO BID [facility] Last Admin: 07/04/22 07:49 Dose: 200 mg Documented By: INDIRA Vancomycin HCl (Vancomycin Hcl 125 Mg Capsule) 500 mg PO Q6H [facility] Last Admin: 07/04/22 07:50 Dose: 500 mg Documented By: INDIRA Labs CBC & Chem 7: 07/04/22 05:45 07/04/22 05:45 Labs: Laboratory Results - last 24 hr 07/04/22 07/04/22 05:45 05:45 MCV 92.3 MCH 29.6 MCHC 32.1 RDW 17.2 H Plt Count 379 MPV 10.4 Immature Gran % (Auto) Cancelled Neut % (Auto) Cancelled Lymph % (Auto) Cancelled [place] % (Auto) Cancelled Eos % (Auto) Cancelled Baso % (Auto) Cancelled Lymph # (Auto) Cancelled [place] # (Auto) Cancelled Eos # (Auto) Cancelled Baso # (Auto) Cancelled Abs Immat Gran (auto) Cancelled Absolute Neuts (auto) Cancelled Absolute Nucleated RBC 0.000 Nucleated RBC % (auto) 0.0 Neutrophils % (Manual) 66 Band Neutrophils % 9 H Lymphocytes % (Manual) 12 L Monocytes % (Manual) 6 Eosinophils % (Manual) 5 H Basophils % (Manual) 1 Metamyelocytes % 1 Abs Neuts (Manual) 12.0 H Lymphocytes # (Manual) 1.9 Monocytes # (Manual) 1.0 Eosinophils # (Manual) 0.8 H Basophils # (Manual) 0.2 Metamyelocytes # 0.2 Dohle Bodies PRESENT Platelet Estimate NORMAL Plt Morphology Comment NORMAL RBC Morphology NOTED Polychromasia 1+ (0-2) Hypochromasia 1+ (5-14) Basophilic Stippling 1+ (0-2) Acanthocytes (Spur) 1+ (0-2) Anion Gap 13 Estim Creat Clear Calc 144.9 Estimated GFR > 60 Fasting Glucose 105 H Calcium 8.1 L Total Bilirubin 0.2 AST 11 ALT < 6 Alkaline Phosphatase 111 Total Protein 4.6 L Albumin 2.4 L Microbiology Microbiology Results: Microbiology 06/30/22 07:05 Blood Culture - Preliminary Blood - Venous Prelim: GPC Gram Stain only 07/01/22 16:44 Blood Culture - Preliminary Blood - Venous No growth after 48 hours. 07/01/22 16:45 Blood Culture - Preliminary Blood - Venous No growth after 48 hours. Assessment and Plan (1) Colitis due to Clostridioides difficile: Status: Acute (2) Peritonitis: Status: Acute Plan 62yo F admitted 05/18/22 with colitis/Crohn's flare. Flex sig showed perforation with abscess; taken to OR for ex-lap with colostomy after found to have extensive fecal soilage in peritoneum. Severely septic, sent to ICU intubated. Course since then complicated by multiple intra-abdominal abscesses causing fevers, with multiple drains placed by IR. Treated with metronidazole + meropenem and given TPN. Extubated 06/07/22, transitioned to tube feeds and then to oral diet.Now with C difficile colitis, severe 1.C difficile colitis - fidoxamicin (12/18). -switch to PO/AR vancomycin plus IV metronidazole if clinically indicated 2.Fungal Peritonitis - voriconazole (06/07) [can change to oral upon eventual discharge] - ID re-consult pending 3.LUE DVT(catheter-associated) - midline catheter removed, continue enoxaparin 1 mg/kg q12h 4.SABINE - resolved -follow renals/divalents VTE ppx: LMWH # dispo: will need rehab, likely [facility] Patient requires continued hospitalization secondary to the need for placement Quality Stroke Does the patient have a stroke diagnosis?: No VTE Prior VTE?: No VTE Risk Level:: Medical - moderate - high VTE Device Contraindication: N/A - Device Ordered VTE Drug Contraindication: N/A - Med Ordered
[2022-07-04 15:26] VITALS: BP 120/75; PULSE 120; RESP 17; TEMP 36.2; O2SAT 97
[2022-07-04 19:01] VITALS: BP 117/70; PULSE 120; RESP 17; TEMP 36.6; O2SAT 97
[2022-07-04] MEDS: DULoxetine HCl 60 MG CAPSULE.DR PO (21:28)
[2022-07-04] MEDS: Gabapentin 300 MG CAPSULE PO (21:29)
[2022-07-04] MEDS: ondansetron HCL 4 MG/2 ML VIAL IVPUSH (23:04)
[2022-07-04 23:07] VITALS: BP 138/76; PULSE 120; RESP 18; TEMP 36.1; O2SAT 96
[2022-07-05 03:19] VITALS: BP 118/79; PULSE 115; RESP 20; TEMP 37.1; O2SAT 98
[2022-07-05] MEDS: metroNIDAZOLE/NS 500 MG/100 ML PIGGYBACK 100 MG IV ×3 (04:08→20:20)
[2022-07-05] MEDS: Enoxaparin Sodium 100 MG/ML SYRINGE 90 MG SUBCUT ×2 (04:12→16:56)
[2022-07-05] MEDS: vancomycin HCL 125 MG CAPSULE 500 MG PO ×4 (04:12→20:20)
[2022-07-05 06:00] VITALS: BMI 36.1
[2022-07-05 07:02] LABS: Hematocrit 28.6 % (37.0-47.0); Hemoglobin 9.2 g/dl (12.0-16.0); Mean Corpuscular HGB Conc 32.2 g/dl (31.0-35.0); Mean Corpuscular Hemoglobin 29.7 pg (27.0-33.0); Mean Corpuscular Volume 92.3 fL (80.0-98.0); Mean Platelet Volume 10.2 fL (9.4-12.3); Platelet Count 368 X10*3/uL (160-400); Red Cell Distribution Width 17.5 % (11.0-16.0); White Blood Count 9.5 X10*3/uL (4.8-10.8)
[2022-07-05 07:05] LABS: Alanine Aminotransferase < 6 U/L (0-31); Albumin Level 2.3 g/dL (3.5-5.0); Alkaline Phosphatase 101 U/L (39-117); Anion Gap 11 (12-20); Aspartate Amino Transferase 12 U/L (5-31); Bilirubin Total < 0.2 mg/dL (0.0-1.0); Blood Urea Nitrogen 8 mg/dL (9-16); Calcium 7.9 mg/dL (8.4-10.2); Carbon Dioxide 26 mmol/L (22-29); Chloride 102 mmol/L (96-108); Creatinine Clr Calc Pharmacy 144.9; Estimated Glomerular Filt Rate > 60; Glucose Fasting 109 mg/dL (60-99); Potassium 3.2 mmol/L (3.3-5.1); Sodium 136 mmol/L (135-145); Total Protein 4.5 g/dL (6.5-8.0)
[2022-07-05 07:07] VITALS: BP 123/81; PULSE 115; RESP 20; TEMP 36.3; O2SAT 97
[2022-07-05 08:17] LABS: Band Neutrophils Percent 8 % (3-5); Eosinophils Absolute Manual 0.4 X10*3/uL (0.0-0.4); Eosinophils Percent Manual 4 % (0-4); Lymphocytes Absolute Manual 1.5 X10*3/uL (1.2-4.9); Lymphocytes Percent Manual 16 % (20-40); Metamyelocytes Absolute 0.4 X10*3/uL; Metamyelocytes Percent 4 %; Monocytes Absolute Manual 0.3 X10*3/uL (0.1-1.2); Monocytes Percent Manual 3 % (2-11); Myelocytes Absolute 0.3 X10*/uL; Myelocytes Percent 3 %; Neutrophils Absolute Manual 6.7 X10*3/uL (2.0-8.3); Neutrophils Percent Manual 62 % (45-73)
[2022-07-05 08:19] LABS: Hypochromasia 1+ (5-14) /OIF; Platelet Estimate NORMAL (NORMAL); Platelet Morphology Comment NORMAL; Polychromasia 1+ (0-2) /OIF; RBC Morphology NOTED
[2022-07-05] MEDS: Heparin Sodium,Porcine Flush 50 UNITS, 0.9 % Sodium Chloride Flush 5 ML IVFLUSH ×3 (08:47→20:21)
[2022-07-05] MEDS: Topiramate 100 MG TABLET 200 MG PO ×2 (08:48→20:21)
[2022-07-05] MEDS: Dicyclomine HCl 10 MG CAPSULE 20 MG PO ×3 (08:49→16:55)
[2022-07-05] MEDS: Potassium Chloride/H20 40 MEQ/100 ML PIGGYBACK 100 MEQ IV (09:07)
[2022-07-05] MEDS: 0.9 % Sodium Chloride Flush 3 ML SYRINGE IVFLUSH ×3 (09:08→20:23)
[2022-07-05] MEDS: Acetaminophen 325 MG TABLET 650 MG PO (10:22)
[2022-07-05] MEDS: oxyCODONE HCl Immed Release 5 MG TABLET 10 MG PO ×2 (10:23→17:19)
[2022-07-05] MEDS: Nystatin Powder 15 GM BOTTLE 1 APPL TOPICAL (10:50)
[2022-07-05 11:01] VITALS: BP 120/80; PULSE 122; RESP 20; TEMP 36; O2SAT 98
[2022-07-05] MEDS: Voriconazole 200 MG in 0.9 % Sodium Chloride 100 ML 50 MG IV ×2 (11:03→23:42)
--- NOTE | 2022-07-05 12:09 | MHC.CLN ---
F/U PO INTAKE 75% X 2MEALS DIET RX: REGULAR-APPROPRIATE PT PREFERS SMALLER PORTIONS WITH MEALS PT ACCEPTING AND DRINKING ENSURE VANILLA TID PROVIDES 1050KCALS, 60G PROTEIN PT STATED, BEEN DRINKING SOME -NOTED ENSURE AT BEDSIDE CONTINUE TO MONITOR PO INTAKE CLOSELY
--- NOTE | 2022-07-05 12:59 | P.PNGS_ITS ---
Subjective Subjective Date of Service: 07/05/22 Interval history: Taking some p.o. intake Stoma functioning well No new complaints Occasional crampy abdominal pain Physical Exam Vital Signs: Vital Signs: Last Vital Signs Temp 96.8 F 07/05/22 11:01 Pulse 122 H 07/05/22 11:01 Resp 20 07/05/22 11:01 BP 120/80 07/05/22 11:01 Pulse Ox 98 07/05/22 11:01 O2 Del Method 07/05/22 11:01 O2 Flow Rate 1 07/05/22 11:01 FiO2 97 07/01/22 20:00 Oxygen Flow Rate 35 06/13/22 21:00 BMI result Body Mass Index 36.1 Const: Other: Looks tired no distress although with some mild shortness of breath as baseline Resp: Other: Mild shortness of breath Cardio: Rate: tachycardic GI: Other: Soft, no guarding rebound, stoma with good output, [address] Objective Data Active Medications Acetaminophen (Acetaminophen 325 Mg Tablet) 650 mg PO Q6H PRN PRN Reason: fever Last Admin: 07/05/22 10:22 Dose: 650 mg Documented By: VITA Heparin Sodium (Porcine) 50 (units/ Sodium Chloride 5 ml) 0 units IVFLUSH TID [facility] Last Admin: 07/05/22 08:47 Dose: 50 unit Documented By: VITA Dicyclomine HCl (Dicyclomine Hcl 10 Mg Capsule) 20 mg PO TIDAC [facility] Last Admin: 07/05/22 11:03 Dose: 20 mg Documented By: VITA Duloxetine HCl (Duloxetine Hcl 60 Mg Capsule.) 60 mg PO BEDTIME [facility] Last Admin: 07/04/22 21:28 Dose: 60 mg Documented By: FRANTZ Enoxaparin Sodium (Enoxaparin Sodium 100 Mg/Ml Syringe) 90 mg 1 mg/kg (90 mg) SUBCUT Q12H [facility] Last Admin: 07/05/22 04:12 Dose: 90 mg Documented By: FRANTZ Gabapentin (Gabapentin 300 Mg Capsule) 300 mg PO BEDTIME [facility] Last Admin: 07/04/22 21:29 Dose: 300 mg Documented By: FRANTZ Hydromorphone HCl (Hydromorphone Hcl 0.5 Mg/0.5 Ml Syringe) 0.5 mg IVPUSH Q4H PRN; Protocol PRN Reason: mild pain Last Admin: 07/04/22 23:04 Dose: 0.5 mg Documented By: FRANTZ Meropenem 1 gm/ Sodium (Chloride) 100 mls @ 200 mls/hr IV Q8H [facility] Last Infusion: 07/05/22 09:31 Dose: 0 mls/hr Documented By: VITA Metronidazole (Flagyl) 500 mg in 100 mls @ 100 mls/hr IV Q8H [facility] Last Infusion: 07/05/22 12:05 Dose: 0 mls/hr Documented By: JOSE DE JESUS Voriconazole 200 mg/ Sodium (Chloride) 100 mls @ 50 mls/hr IV Q12H [facility] Last Admin: 07/05/22 11:03 Dose: 50 mls/hr Documented By: VITA Metoprolol Tartrate (Metoprolol Tartrate 100 Mg Tablet) 100 mg PO BID [facility]; Protocol Last Admin: 07/01/22 08:09 Dose: 100 mg Documented By: LAUREN Patient Own Med ( (Ajovy 1.5 Ml)) 1.5 ml SUBCUT Q30D [facility] Last Admin: 06/30/22 13:56 Dose: 1.5 ml Documented By: LAKESHIA Nystatin (Nystatin Powder 15 Gm Bottle) 1 appl TOPICAL BID [facility]; Protocol Last Admin: 07/05/22 10:50 Dose: 1 appl Documented By: VITA Ondansetron HCl (Ondansetron Hcl 4 Mg/2 Ml Vial) 4 mg IVPUSH Q6H PRN PRN Reason: Nausea Last Admin: 07/04/22 23:04 Dose: 4 mg Documented By: FRANTZ Oxycodone HCl (Oxycodone Hcl Immed Release 5 Mg Tablet) 10 mg PO Q4H PRN PRN Reason: Pain, Moderate (Pain Scale 4-6 Last Admin: 07/05/22 10:23 Dose: 10 mg Documented By: VITA Pharmacy Consult (Consult Rx Perform Med Rec) 1 each MISCELLANE ONCE PRN PRN Reason: Consult order Sodium Chloride (0.9 % Sodium Chloride Flush 3 Ml Syringe) 3 ml IVFLUSH QSHIFT [facility] Last Admin: 07/05/22 09:08 Dose: 3 ml Documented By: VITA Sumatriptan Succinate (Sumatriptan Succinate 6 Mg/0.5 Ml Vial) 6 mg SUBCUT DAILY PRN PRN Reason: migraine headache Topiramate (Topiramate 100 Mg Tablet) 200 mg PO BID [facility] Last Admin: 07/05/22 08:48 Dose: 200 mg Documented By: VITA Vancomycin HCl (Vancomycin Hcl 125 Mg Capsule) 500 mg PO Q6H [facility] Last Admin: 07/05/22 08:49 Dose: 500 mg Documented By: VITA Labs CBC & Chem 7: 07/05/22 06:37 07/05/22 06:37 Labs: Laboratory Results - last 24 hr 07/05/22 07/05/22 06:37 06:37 MCV 92.3 MCH 29.7 MCHC 32.2 RDW 17.5 H Plt Count 368 MPV 10.2 Immature Gran % (Auto) Cancelled Neut % (Auto) Cancelled Lymph % (Auto) Cancelled [place] % (Auto) Cancelled Eos % (Auto) Cancelled Baso % (Auto) Cancelled Lymph # (Auto) Cancelled [place] # (Auto) Cancelled Eos # (Auto) Cancelled Baso # (Auto) Cancelled Abs Immat Gran (auto) Cancelled Absolute Neuts (auto) Cancelled Absolute Nucleated RBC 0.000 Nucleated RBC % (auto) 0.0 Neutrophils % (Manual) 62 Band Neutrophils % 8 H Lymphocytes % (Manual) 16 L Monocytes % (Manual) 3 Eosinophils % (Manual) 4 Metamyelocytes % 4 Myelocytes % 3 Abs Neuts (Manual) 6.7 Lymphocytes # (Manual) 1.5 Monocytes # (Manual) 0.3 Eosinophils # (Manual) 0.4 Metamyelocytes # 0.4 Myelocytes # 0.3 Platelet Estimate NORMAL Plt Morphology Comment NORMAL RBC Morphology NOTED Polychromasia 1+ (0-2) Hypochromasia 1+ (5-14) Anion Gap 11 L Estim Creat Clear Calc 144.9 Estimated GFR > 60 Fasting Glucose 109 H Calcium 7.9 L Total Bilirubin < 0.2 AST 12 ALT < 6 Alkaline Phosphatase 101 Total Protein 4.5 L Albumin 2.3 L Microbiology Microbiology Results: Microbiology 06/30/22 07:05 Blood Culture - Preliminary Blood - Venous Gram positive cocci 06/30/22 07:05 Blood Culture - Final Blood - Venous No growth after 5 days. Procedures Date of Service Date of Service: 07/05/22 Arterial Line Size (Gauge): 16 Progress Note: A&P Assessment and plan (1) Status post colostomy: Status: Acute Assessment and Plan: Oral intake seems better Stoma functioning well Needs physical therapy although she seems to be very frail still at this time I removed 1 more drain - [address] Improving slowly at bedside Time Spent With Patient Time: Total time spent is greater than 50% in coordination of care (as documented) at patient's floor/unit and/or counseling patient: Quality Stroke Does the patient have a stroke diagnosis?: No VTE Prior VTE?: No VTE Risk Level:: Medical - moderate - high VTE Device Contraindication: N/A - Device Ordered VTE Drug Contraindication: N/A - Med Ordered
--- NOTE | 2022-07-05 13:55 | PM.GIPN ---
Subjective Subjective Date of Service: 07/05/22 Interval History: states abdomen feels better Critical Care Time (minutes): 0 Physical Exam Vital Signs: Vital Signs: Last Vital Signs Temp 96.8 F 07/05/22 11:01 Pulse 122 H 07/05/22 11:01 Resp 20 07/05/22 11:01 BP 120/80 07/05/22 11:01 Pulse Ox 98 07/05/22 11:01 O2 Del Method 07/05/22 11:01 O2 Flow Rate 1 07/05/22 11:01 FiO2 97 07/01/22 20:00 Oxygen Flow Rate 35 06/13/22 21:00 BMI result Body Mass Index 36.1 GI: Other: abdomen is soft Objective Data Labs CBC & Chem 7: 07/05/22 06:37 07/05/22 06:37 Labs: Laboratory Results - last 24 hr 07/05/22 07/05/22 06:37 06:37 WBC 9.5 RBC 3.10 L Hgb 9.2 L Hct 28.6 L MCV 92.3 MCH 29.7 MCHC 32.2 RDW 17.5 H Plt Count 368 MPV 10.2 Immature Gran % (Auto) Cancelled Neut % (Auto) Cancelled Lymph % (Auto) Cancelled [place] % (Auto) Cancelled Eos % (Auto) Cancelled Baso % (Auto) Cancelled Lymph # (Auto) Cancelled [place] # (Auto) Cancelled Eos # (Auto) Cancelled Baso # (Auto) Cancelled Abs Immat Gran (auto) Cancelled Absolute Neuts (auto) Cancelled Absolute Nucleated RBC 0.000 Nucleated RBC % (auto) 0.0 Neutrophils % (Manual) 62 Band Neutrophils % 8 H Lymphocytes % (Manual) 16 L Monocytes % (Manual) 3 Eosinophils % (Manual) 4 Metamyelocytes % 4 Myelocytes % 3 Abs Neuts (Manual) 6.7 Lymphocytes # (Manual) 1.5 Monocytes # (Manual) 0.3 Eosinophils # (Manual) 0.4 Metamyelocytes # 0.4 Myelocytes # 0.3 Platelet Estimate NORMAL Plt Morphology Comment NORMAL RBC Morphology NOTED Polychromasia 1+ (0-2) Hypochromasia 1+ (5-14) Sodium 136 Potassium 3.2 L Chloride 102 Carbon Dioxide 26 Anion Gap 11 L BUN 8 L Creatinine 0.44 L Estim Creat Clear Calc 144.9 Estimated GFR > 60 Fasting Glucose 109 H Calcium 7.9 L Total Bilirubin < 0.2 AST 12 ALT < 6 Alkaline Phosphatase 101 Total Protein 4.5 L Albumin 2.3 L Procedures Date of Service Date of Service: 07/05/22 Arterial Line Size (Gauge): 16 Progress Note: A&P Assessment and plan (1) Colitis due to Clostridioides difficile: Status: Acute Assessment and Plan: continue vancomycin and flagyl for c diff. Time Spent With Patient Time: Total time spent is greater than 50% in coordination of care (as documented) at patient's floor/unit and/or counseling patient: Quality Stroke Does the patient have a stroke diagnosis?: No VTE Prior VTE?: No VTE Risk Level:: Medical - moderate - high VTE Device Contraindication: N/A - Device Ordered VTE Drug Contraindication: N/A - Med Ordered
[2022-07-05] MEDS: HYDROmorphone HCl 0.5 MG/0.5 ML SYRINGE IVPUSH (14:44)
[2022-07-05 15:30] VITALS: BP 110/62; PULSE 116; RESP 17; TEMP 36.3; O2SAT 96
--- NOTE | 2022-07-05 15:41 | MHC.CM.PN ---
per rounds pt not ready for dc plan remains for str
--- NOTE | 2022-07-05 16:27 | HO.PM.IMPN ---
Subjective Subjective Date of Service: 07/05/22 Interval History: No acute events overnight. Slowly improving Review of Systems Denies chest pain Denies shortness of breath Denies nausea vomiting diarrhea Denies fever chills Physical Exam Vital Signs: Vital Signs: Last Vital Signs Temp 97.4 F 07/05/22 15:30 Pulse 116 H 07/05/22 15:30 Resp 17 07/05/22 15:30 BP 110/62 07/05/22 15:30 Pulse Ox 96 07/05/22 15:30 O2 Del Method 07/05/22 15:30 O2 Flow Rate 1 07/05/22 11:01 FiO2 97 07/01/22 20:00 Oxygen Flow Rate 35 06/13/22 21:00 BMI result Body Mass Index 36.1 Const: Other: No acute distress Resp: Other: Clear to auscultation bilaterally no rales rhonchi or wheezes Cardio: Other: No S4; positive S1-S2; no S3 murmurs rubs or gallops GI: Other: Soft nontender nondistended normoactive bowel sounds. Stoma in place, functioning well, loose stool identified.? NOHEMI is intact with scant output.? Inspection: No distended? Palpation (GI): Soft to palpation Extrem: Other: No edema bilaterally Objective Data Active Medications Acetaminophen (Acetaminophen 325 Mg Tablet) 650 mg PO Q6H PRN PRN Reason: fever Last Admin: 07/05/22 10:22 Dose: 650 mg Documented By: VITA Heparin Sodium (Porcine) 50 (units/ Sodium Chloride 5 ml) 0 units IVFLUSH TID [facility] Last Admin: 07/05/22 14:44 Dose: Not Given Documented By: JOSE DE JESUS Non-Admin Reason: IV Running Dicyclomine HCl (Dicyclomine Hcl 10 Mg Capsule) 20 mg PO TIDAC [facility] Last Admin: 07/05/22 11:03 Dose: 20 mg Documented By: VITA Duloxetine HCl (Duloxetine Hcl 60 Mg Capsule.) 60 mg PO BEDTIME [facility] Last Admin: 07/04/22 21:28 Dose: 60 mg Documented By: FRANTZ Enoxaparin Sodium (Enoxaparin Sodium 100 Mg/Ml Syringe) 90 mg 1 mg/kg (90 mg) SUBCUT Q12H [facility] Last Admin: 07/05/22 04:12 Dose: 90 mg Documented By: FRANTZ Gabapentin (Gabapentin 300 Mg Capsule) 300 mg PO BEDTIME [facility] Last Admin: 07/04/22 21:29 Dose: 300 mg Documented By: FRANTZ Hydromorphone HCl (Hydromorphone Hcl 0.5 Mg/0.5 Ml Syringe) 0.5 mg IVPUSH Q4H PRN; Protocol PRN Reason: mild pain Last Admin: 07/05/22 14:44 Dose: 0.5 mg Documented By: JOSE DE JESUS Meropenem 1 gm/ Sodium (Chloride) 100 mls @ 200 mls/hr IV Q8H [facility] Last Infusion: 07/05/22 09:31 Dose: 0 mls/hr Documented By: VITA Metronidazole (Flagyl) 500 mg in 100 mls @ 100 mls/hr IV Q8H [facility] Last Infusion: 07/05/22 12:05 Dose: 0 mls/hr Documented By: JOSE DE JESUS Voriconazole 200 mg/ Sodium (Chloride) 100 mls @ 50 mls/hr IV Q12H [facility] Last Infusion: 07/05/22 13:50 Dose: 0 mls/hr Documented By: JOSE DE JESUS Metoprolol Tartrate (Metoprolol Tartrate 100 Mg Tablet) 100 mg PO BID [facility]; Protocol Last Admin: 07/01/22 08:09 Dose: 100 mg Documented By: LAUREN Patient Own Med ( (Ajovy 1.5 Ml)) 1.5 ml SUBCUT Q30D [facility] Last Admin: 06/30/22 13:56 Dose: 1.5 ml Documented By: LAKESHIA Nystatin (Nystatin Powder 15 Gm Bottle) 1 appl TOPICAL BID [facility]; Protocol Last Admin: 07/05/22 10:50 Dose: 1 appl Documented By: VITA Ondansetron HCl (Ondansetron Hcl 4 Mg/2 Ml Vial) 4 mg IVPUSH Q6H PRN PRN Reason: Nausea Last Admin: 07/04/22 23:04 Dose: 4 mg Documented By: FRANTZ Oxycodone HCl (Oxycodone Hcl Immed Release 5 Mg Tablet) 10 mg PO Q4H PRN PRN Reason: Pain, Moderate (Pain Scale 4-6 Last Admin: 07/05/22 10:23 Dose: 10 mg Documented By: VITA Pharmacy Consult (Consult Rx Perform Med Rec) 1 each MISCELLANE ONCE PRN PRN Reason: Consult order Sodium Chloride (0.9 % Sodium Chloride Flush 3 Ml Syringe) 3 ml IVFLUSH QSHIFT [facility] Last Admin: 07/05/22 09:08 Dose: 3 ml Documented By: VITA Sumatriptan Succinate (Sumatriptan Succinate 6 Mg/0.5 Ml Vial) 6 mg SUBCUT DAILY PRN PRN Reason: migraine headache Topiramate (Topiramate 100 Mg Tablet) 200 mg PO BID [facility] Last Admin: 07/05/22 08:48 Dose: 200 mg Documented By: VITA Vancomycin HCl (Vancomycin Hcl 125 Mg Capsule) 500 mg PO Q6H [facility] Last Admin: 07/05/22 14:44 Dose: 500 mg Documented By: JOSE DE JESUS Labs CBC & Chem 7: 07/05/22 06:37 07/05/22 06:37 Labs: Laboratory Results - last 24 hr 07/05/22 07/05/22 06:37 06:37 MCV 92.3 MCH 29.7 MCHC 32.2 RDW 17.5 H Plt Count 368 MPV 10.2 Immature Gran % (Auto) Cancelled Neut % (Auto) Cancelled Lymph % (Auto) Cancelled Gove % (Auto) Cancelled Eos % (Auto) Cancelled Baso % (Auto) Cancelled Lymph # (Auto) Cancelled Gove # (Auto) Cancelled Eos # (Auto) Cancelled Baso # (Auto) Cancelled Abs Immat Gran (auto) Cancelled Absolute Neuts (auto) Cancelled Absolute Nucleated RBC 0.000 Nucleated RBC % (auto) 0.0 Neutrophils % (Manual) 62 Band Neutrophils % 8 H Lymphocytes % (Manual) 16 L Monocytes % (Manual) 3 Eosinophils % (Manual) 4 Metamyelocytes % 4 Myelocytes % 3 Abs Neuts (Manual) 6.7 Lymphocytes # (Manual) 1.5 Monocytes # (Manual) 0.3 Eosinophils # (Manual) 0.4 Metamyelocytes # 0.4 Myelocytes # 0.3 Platelet Estimate NORMAL Plt Morphology Comment NORMAL RBC Morphology NOTED Polychromasia 1+ (0-2) Hypochromasia 1+ (5-14) Anion Gap 11 L Estim Creat Clear Calc 144.9 Estimated GFR > 60 Fasting Glucose 109 H Calcium 7.9 L Total Bilirubin < 0.2 AST 12 ALT < 6 Alkaline Phosphatase 101 Total Protein 4.5 L Albumin 2.3 L Microbiology Microbiology Results: Microbiology 06/30/22 07:05 Blood Culture - Preliminary Blood - Venous Gram positive cocci 06/30/22 07:05 Blood Culture - Final Blood - Venous No growth after 5 days. Assessment and Plan (1) Colitis due to Clostridioides difficile: Status: Acute (2) Peritonitis: Status: Acute Plan 62yo F admitted 05/18/22 with colitis/Crohn's flare. Flex sig showed perforation with abscess; taken to OR for ex-lap with colostomy after found to have extensive fecal soilage in peritoneum. Severely septic, sent to ICU intubated. Course since then complicated by multiple intra-abdominal abscesses causing fevers, with multiple drains placed by IR. Treated with metronidazole + meropenem and given TPN. Extubated 06/07/22, transitioned to tube feeds and then to oral diet.Now with C difficile colitis, severe. Slowly improving 1.C difficile colitis - fidoxamicin (01/17). -switch to PO/MO vancomycin plus IV metronidazole if clinically indicated 2.Fungal Peritonitis - voriconazole (07/07) [can change to oral upon eventual discharge] - ID re-consult pending 3.LUE DVT(catheter-associated) - midline catheter removed, continue enoxaparin 1 mg/kg q12h 4.SABINE - resolved -follow renals/divalents VTE ppx: LMWH # dispo: will need rehab, likely [facility] Patient requires continued hospitalization secondary to the need for placement Quality Stroke Does the patient have a stroke diagnosis?: No VTE Prior VTE?: No VTE Risk Level:: Medical - moderate - high VTE Device Contraindication: N/A - Device Ordered VTE Drug Contraindication: N/A - Med Ordered
[2022-07-05 19:02] VITALS: BP 121/71; PULSE 121; RESP 17; TEMP 36.5; O2SAT 95
[2022-07-05] MEDS: DULoxetine HCl 60 MG CAPSULE.DR PO (20:21)
[2022-07-05] MEDS: Gabapentin 300 MG CAPSULE PO (20:21)
[2022-07-05 23:16] VITALS: BP 123/77; PULSE 120; RESP 20; TEMP 37; O2SAT 97
[2022-07-06] VITALS (7 sets, daily range): BP systolic 108–123; BP diastolic 68–80; PULSE 112–124; RESP 17–18; TEMP 36.1–37.6; O2SAT 93–100; BMI 37.3
[2022-07-06] MEDS: Enoxaparin Sodium 100 MG/ML SYRINGE 90 MG SUBCUT ×2 (03:52→16:27)
[2022-07-06] MEDS: vancomycin HCL 125 MG CAPSULE 500 MG PO ×4 (03:53→19:50)
[2022-07-06] MEDS: metroNIDAZOLE/NS 500 MG/100 ML PIGGYBACK 100 MG IV ×3 (03:53→19:50)
[2022-07-06] MEDS: Dicyclomine HCl 10 MG CAPSULE 20 MG PO ×3 (08:19→16:27)
[2022-07-06] MEDS: Heparin Sodium,Porcine Flush 50 UNITS, 0.9 % Sodium Chloride Flush 5 ML IVFLUSH ×3 (08:20→19:50)
[2022-07-06] MEDS: 0.9 % Sodium Chloride Flush 3 ML SYRINGE IVFLUSH ×2 (08:20→16:27)
[2022-07-06] MEDS: Topiramate 100 MG TABLET 200 MG PO ×2 (08:20→19:49)
[2022-07-06] MEDS: Nystatin Powder 15 GM BOTTLE 1 APPL TOPICAL (08:22)
[2022-07-06] MEDS: oxyCODONE HCl Immed Release 5 MG TABLET 10 MG PO ×2 (08:30→16:30)
[2022-07-06] MEDS: HYDROmorphone HCl 0.5 MG/0.5 ML SYRINGE IVPUSH ×4 (09:44→22:51)
[2022-07-06] MEDS: Voriconazole 200 MG in 0.9 % Sodium Chloride 100 ML 50 MG IV (12:21)
[2022-07-06] MEDS: Simethicone 80 MG TAB.CHEW PO ×2 (12:21→19:53)
--- NOTE | 2022-07-06 12:31 | P.PNIM_ITS ---
Subjective Subjective Date of Service: 07/06/22 Interval History: Spirits good however extremely fatigued. Complains of bloating Review of Systems Denies chest pain Denies shortness of breath Denies nausea vomiting diarrhea Denies fever chills Physical Exam Vital Signs: Vital Signs: Last Vital Signs Temp 97.0 F 07/06/22 11:05 Pulse 112 H 07/06/22 11:05 Resp 18 07/06/22 11:05 BP 123/72 07/06/22 11:05 Pulse Ox 93 07/06/22 11:05 O2 Del Method 07/06/22 11:05 O2 Flow Rate 1 07/06/22 07:14 FiO2 97 07/01/22 20:00 Oxygen Flow Rate 35 06/13/22 21:00 BMI result Body Mass Index 37.3 Const: Other: No acute distress Resp: Other: Clear to auscultation bilaterally no rales rhonchi or wheezes Cardio: Other: No S4; positive S1-S2; no S3 murmurs rubs or gallops GI: Other: Soft nontender nondistended normoactive bowel sounds. Stoma in place, functioning well, loose stool identified.? NOHEMI is intact with scant output.? Inspection: No distended? Palpation (GI): Soft to palpation Extrem: Other: No edema bilaterally Objective Data Active Medications Acetaminophen (Acetaminophen 325 Mg Tablet) 650 mg PO Q6H PRN PRN Reason: fever Last Admin: 07/05/22 10:22 Dose: 650 mg Documented By: VITA Heparin Sodium (Porcine) 50 (units/ Sodium Chloride 5 ml) 0 units IVFLUSH TID [facility] Last Admin: 07/06/22 08:20 Dose: 50 unit Documented By: MARIAN Dicyclomine HCl (Dicyclomine Hcl 10 Mg Capsule) 20 mg PO TIDAC [facility] Last Admin: 07/06/22 10:59 Dose: 20 mg Documented By: MARIAN Duloxetine HCl (Duloxetine Hcl 60 Mg Capsule.) 60 mg PO BEDTIME [facility] Last Admin: 07/05/22 20:21 Dose: 60 mg Documented By: CASS Enoxaparin Sodium (Enoxaparin Sodium 100 Mg/Ml Syringe) 90 mg 1 mg/kg (90 mg) SUBCUT Q12H [facility] Last Admin: 07/06/22 03:52 Dose: 90 mg Documented By: CASS Gabapentin (Gabapentin 300 Mg Capsule) 300 mg PO BEDTIME [facility] Last Admin: 07/05/22 20:21 Dose: 300 mg Documented By: CASS Hydromorphone HCl (Hydromorphone Hcl 0.5 Mg/0.5 Ml Syringe) 0.5 mg IVPUSH Q4H PRN; Protocol PRN Reason: mild pain Last Admin: 07/06/22 09:44 Dose: 0.5 mg Documented By: MARIAN Meropenem 1 gm/ Sodium (Chloride) 100 mls @ 200 mls/hr IV Q8H [facility] Last Infusion: 07/06/22 09:35 Dose: 0 mls/hr Documented By: MARIAN Metronidazole (Flagyl) 500 mg in 100 mls @ 100 mls/hr IV Q8H [facility] Last Infusion: 07/06/22 12:10 Dose: 0 mls/hr Documented By: MARIAN Voriconazole 200 mg/ Sodium (Chloride) 100 mls @ 50 mls/hr IV Q12H [facility] Last Admin: 07/06/22 12:21 Dose: 50 mls/hr Documented By: MARIAN Metoprolol Tartrate (Metoprolol Tartrate 100 Mg Tablet) 100 mg PO BID [facility]; Protocol Last Admin: 07/01/22 08:09 Dose: 100 mg Documented By: LAUREN Patient Own Med ( (Ajovy 1.5 Ml)) 1.5 ml SUBCUT Q30D [facility] Last Admin: 06/30/22 13:56 Dose: 1.5 ml Documented By: LAKESHIA Nystatin (Nystatin Powder 15 Gm Bottle) 1 appl TOPICAL BID [facility]; Protocol Last Admin: 07/06/22 08:22 Dose: 1 appl Documented By: MARIAN Ondansetron HCl (Ondansetron Hcl 4 Mg/2 Ml Vial) 4 mg IVPUSH Q6H PRN PRN Reason: Nausea Last Admin: 07/04/22 23:04 Dose: 4 mg Documented By: FRANTZ Oxycodone HCl (Oxycodone Hcl Immed Release 5 Mg Tablet) 10 mg PO Q4H PRN PRN Reason: Pain, Moderate (Pain Scale 4-6 Last Admin: 07/06/22 08:30 Dose: 10 mg Documented By: MARIAN Pharmacy Consult (Consult Rx Perform Med Rec) 1 each MISCELLANE ONCE PRN PRN Reason: Consult order Simethicone (Simethicone 80 Mg Tab.Chew) 80 mg PO QIDWMHS PRN PRN Reason: GI Upset Last Admin: 07/06/22 12:21 Dose: 80 mg Documented By: MARIAN Sodium Chloride (0.9 % Sodium Chloride Flush 3 Ml Syringe) 3 ml IVFLUSH QSHIFT [facility] Last Admin: 07/06/22 08:20 Dose: 3 ml Documented By: MARIAN Sumatriptan Succinate (Sumatriptan Succinate 6 Mg/0.5 Ml Vial) 6 mg SUBCUT DAILY PRN PRN Reason: migraine headache Topiramate (Topiramate 100 Mg Tablet) 200 mg PO BID [facility] Last Admin: 07/06/22 08:20 Dose: 200 mg Documented By: MARIAN Vancomycin HCl (Vancomycin Hcl 125 Mg Capsule) 500 mg PO Q6H [facility] Last Admin: 07/06/22 08:20 Dose: 500 mg Documented By: MARIAN Labs CBC & Chem 7: 07/05/22 06:37 07/05/22 06:37 Microbiology Microbiology Results: Microbiology 06/30/22 07:05 Blood Culture - Preliminary Blood - Venous Gram positive cocci 06/30/22 07:05 Blood Culture - Final Blood - Venous No growth after 5 days. Assessment and Plan (1) Colitis due to Clostridioides difficile: Status: Acute Plan 62yo F admitted 05/18/22 with colitis/Crohn's flare. Flex sig showed perforation with abscess; taken to OR for ex-lap with colostomy after found to have extensive fecal soilage in peritoneum. Severely septic, sent to ICU intubated. Course since then complicated by multiple intra-abdominal abscesses causing fevers, with multiple drains placed by IR. Treated with metronidazole + m eropenem and given TPN. Extubated 06/07/22, transitioned to tube feeds and then to oral diet.Now with C difficile colitis, severe. Slowly improving 1.C difficile colitis - fidoxamicin (02/17). -switch to PO/AK vancomycin plus IV metronidazole if clinically indicated -simethicone added by GI for bloating 2.Fungal Peritonitis - voriconazole (08/07) [can change to oral upon eventual discharge] 3.LUE DVT(catheter-associated) - midline catheter removed, continue enoxaparin 1 mg/kg q12h 4.SABINE - resolved -follow renals/divalents VTE ppx: LMWH # dispo: will need rehab, likely [facility] Patient requires continued hospitalization secondary to the need for placement Quality Stroke Does the patient have a stroke diagnosis?: No VTE Prior VTE?: No VTE Risk Level:: Medical - moderate - high VTE Device Contraindication: N/A - Device Ordered VTE Drug Contraindication: N/A - Med Ordered
--- NOTE | 2022-07-06 13:23 | PM.GIPN ---
Subjective Subjective Date of Service: 07/06/22 Interval History: c/o bloating Critical Care Time (minutes): 0 Physical Exam Vital Signs: Vital Signs: Last Vital Signs Temp 97.0 F 07/06/22 11:05 Pulse 112 H 07/06/22 11:05 Resp 18 07/06/22 11:05 BP 123/72 07/06/22 11:05 Pulse Ox 93 07/06/22 11:05 O2 Del Method 07/06/22 11:05 O2 Flow Rate 1 07/06/22 07:14 FiO2 97 07/01/22 20:00 Oxygen Flow Rate 35 06/13/22 21:00 BMI result Body Mass Index 37.3 GI: Other: soft, nontender Extrem: Other: edema Objective Data Labs CBC & Chem 7: 07/05/22 06:37 07/05/22 06:37 Microbiology Microbiology Results: Microbiology 06/30/22 07:05 Blood - Venous Blood Culture - Preliminary Gram positive cocci 06/30/22 07:05 Blood - Venous Blood Culture - Final No growth after 5 days. 07/01/22 16:44 Blood - Venous Blood Culture - Preliminary No growth after 48 hours. 07/01/22 16:45 Blood - Venous Blood Culture - Preliminary No growth after 48 hours. 06/27/22 01:16 Blood - Venous Blood Culture - Final No growth after 5 days. 06/27/22 01:16 Blood - Venous Blood Culture - Final No growth after 5 days. 06/22/22 16:30 Abdominal Fluid Gram Stain - Final 06/22/22 16:30 Abdominal Fluid Routine Culture - Preliminary Verónica albicans 06/22/22 16:30 Abdominal Fluid Anaerobic Culture - Final NO GROWTH AFTER 5 DAYS 06/24/22 06:14 Blood - Venous Blood Culture - Final No growth after 5 days. 06/24/22 06:14 Blood - Venous Blood Culture - Final No growth after 5 days. 06/02/22 Unknown Abscess Intra-abdominal Fungal Identification - Preliminary Verónica dubliniensis 06/03/22 15:28 Blood - Subclavian Blood Culture - Final No growth after 5 days. 06/03/22 06:15 Blood - Venous Blood Culture - Final No growth after 5 days. 06/03/22 06:15 Blood - Venous Blood Culture - Final No growth after 5 days. 06/02/22 Unknown Peritoneal Fluid Gram Stain - Final 06/02/22 Unknown Peritoneal Fluid Routine Culture - Final Verónica albicans 06/02/22 Unknown Peritoneal Fluid Anaerobic Culture - Final 05/29/22 15:14 Blood - Venous Blood Culture - Final No growth after 5 days. 05/29/22 15:13 Blood - Venous Blood Culture - Final No growth after 5 days. 05/29/22 05:14 Blood - Venous Blood Culture - Final No growth after 5 days. 05/29/22 05:14 Blood - Venous Blood Culture - Final No growth after 5 days. 06/02/22 Unknown Abscess Intra-abdominal Gram Stain - Final 06/02/22 Unknown Abscess Intra-abdominal Routine Culture - Final 06/02/22 Unknown Abscess Intra-abdominal Anaerobic Culture - Final 06/02/22 Unknown Abscess Intra-abdominal Gram Stain - Final 06/02/22 Unknown Abscess Intra-abdominal Routine Culture - Final 05/28/22 Unknown Peritoneal Fluid Gram Stain - Final 05/28/22 Unknown Peritoneal Fluid Anaerobic Culture - Final 05/28/22 Unknown Peritoneal Fluid Body Fluid Culture - Final Verónica dubliniensis 05/29/22 15:05 Sputum - Suctioned Gram Stain - Final 05/29/22 15:05 Sputum - Suctioned Sputum Culture - Final Verónica dubliniensis 05/28/22 16:47 Sputum - Suctioned Gram Stain - Final 05/28/22 16:47 Sputum - Suctioned Sputum Culture - Final Verónica albicans 05/23/22 Unknown Peritoneal Fluid Gram Stain - Final 05/23/22 Unknown Peritoneal Fluid Routine Culture - Final Escherichia coli 05/23/22 Unknown Peritoneal Fluid Anaerobic Culture - Final Clostridium perfringens Bacteroides thetaiotaomicron 05/19/22 08:49 Blood - Venous Blood Culture - Final No growth after 5 days. 05/19/22 08:49 Blood - Venous Blood Culture - Final No growth after 5 days. Procedures Date of Service Date of Service: 07/06/22 Arterial Line Size (Gauge): 16 Progress Note: A&P Assessment and plan (1) Perforated viscus: Status: Acute Assessment and Plan: slow progress simethicone to relieve bloating. Time Spent With Patient Time: Total time spent is greater than 50% in coordination of care (as documented) at patient's floor/unit and/or counseling patient: Quality Stroke Does the patient have a stroke diagnosis?: No VTE Prior VTE?: No VTE Risk Level:: Medical - moderate - high VTE Device Contraindication: N/A - Device Ordered VTE Drug Contraindication: N/A - Med Ordered
--- NOTE | 2022-07-06 14:47 | PM.PNGS ---
Subjective Subjective Date of Service: 07/07/22 Interval history: Says her oral intake is improving Continues to have good stoma function Physical Exam Vital Signs: Vital Signs: Last Vital Signs Temp 97.0 F 07/06/22 11:05 Pulse 112 H 07/06/22 11:05 Resp 18 07/06/22 11:05 BP 123/72 07/06/22 11:05 Pulse Ox 93 07/06/22 11:05 O2 Del Method 07/06/22 11:05 O2 Flow Rate 1 07/06/22 07:14 FiO2 97 07/01/22 20:00 Oxygen Flow Rate 35 06/13/22 21:00 BMI result Body Mass Index 37.3 Const: Other: Mildly short of breath Resp: Other: Mildly short of breath, as baseline Cardio: Rate: tachycardic GI: Other: Stoma with good output incision clean and dry Palpation (GI): Soft to palpation, not firm and no guarding Objective Data Active Medications Acetaminophen (Acetaminophen 325 Mg Tablet) 650 mg PO Q6H PRN PRN Reason: fever Last Admin: 07/05/22 10:22 Dose: 650 mg Documented By: VITA Heparin Sodium (Porcine) 50 (units/ Sodium Chloride 5 ml) 0 units IVFLUSH TID [facility] Last Admin: 07/06/22 14:10 Dose: 50 unit Documented By: MARIAN Dicyclomine HCl (Dicyclomine Hcl 10 Mg Capsule) 20 mg PO TIDAC [facility] Last Admin: 07/06/22 10:59 Dose: 20 mg Documented By: MARIAN Duloxetine HCl (Duloxetine Hcl 60 Mg Capsule.) 60 mg PO BEDTIME [facility] Last Admin: 07/05/22 20:21 Dose: 60 mg Documented By: CASS Enoxaparin Sodium (Enoxaparin Sodium 100 Mg/Ml Syringe) 90 mg 1 mg/kg (90 mg) SUBCUT Q12H [facility] Last Admin: 07/06/22 03:52 Dose: 90 mg Documented By: CASS Gabapentin (Gabapentin 300 Mg Capsule) 300 mg PO BEDTIME [facility] Last Admin: 07/05/22 20:21 Dose: 300 mg Documented By: CASS Hydromorphone HCl (Hydromorphone Hcl 0.5 Mg/0.5 Ml Syringe) 0.5 mg IVPUSH Q4H PRN; Protocol PRN Reason: mild pain Last Admin: 07/06/22 14:10 Dose: 0.5 mg Documented By: MARIAN Meropenem 1 gm/ Sodium (Chloride) 100 mls @ 200 mls/hr IV Q8H [facility] Last Infusion: 07/06/22 09:35 Dose: 0 mls/hr Documented By: MARIAN Metronidazole (Flagyl) 500 mg in 100 mls @ 100 mls/hr IV Q8H [facility] Last Infusion: 07/06/22 12:10 Dose: 0 mls/hr Documented By: MARIAN Voriconazole 200 mg/ Sodium (Chloride) 100 mls @ 50 mls/hr IV Q12H [facility] Metoprolol Tartrate (Metoprolol Tartrate 100 Mg Tablet) 100 mg PO BID [facility]; Protocol Last Admin: 07/01/22 08:09 Dose: 100 mg Documented By: LAUREN Patient Own Med ( (Ajovy 1.5 Ml)) 1.5 ml SUBCUT Q30D [facility] Last Admin: 06/30/22 13:56 Dose: 1.5 ml Documented By: LAKESHIA Nystatin (Nystatin Powder 15 Gm Bottle) 1 appl TOPICAL BID [facility]; Protocol Last Admin: 07/06/22 08:22 Dose: 1 appl Documented By: MARIAN Ondansetron HCl (Ondansetron Hcl 4 Mg/2 Ml Vial) 4 mg IVPUSH Q6H PRN PRN Reason: Nausea Last Admin: 07/04/22 23:04 Dose: 4 mg Documented By: FRANTZ Oxycodone HCl (Oxycodone Hcl Immed Release 5 Mg Tablet) 10 mg PO Q4H PRN PRN Reason: Pain, Moderate (Pain Scale 4-6 Last Admin: 07/06/22 08:30 Dose: 10 mg Documented By: MARIAN Pharmacy Consult (Consult Rx Perform Med Rec) 1 each MISCELLANE ONCE PRN PRN Reason: Consult order Simethicone (Simethicone 80 Mg Tab.Chew) 80 mg PO QIDWMHS PRN PRN Reason: GI Upset Last Admin: 07/06/22 12:21 Dose: 80 mg Documented By: MARIAN Sodium Chloride (0.9 % Sodium Chloride Flush 3 Ml Syringe) 3 ml IVFLUSH QSHIFT [facility] Last Admin: 07/06/22 08:20 Dose: 3 ml Documented By: AMRIAN Sumatriptan Succinate (Sumatriptan Succinate 6 Mg/0.5 Ml Vial) 6 mg SUBCUT DAILY PRN PRN Reason: migraine headache Topiramate (Topiramate 100 Mg Tablet) 200 mg PO BID [facility] Last Admin: 07/06/22 08:20 Dose: 200 mg Documented By: MARIAN Vancomycin HCl (Vancomycin Hcl 125 Mg Capsule) 500 mg PO Q6H [facility] Last Admin: 07/06/22 14:10 Dose: 500 mg Documented By: MARIAN Labs CBC & Chem 7: 07/05/22 06:37 07/05/22 06:37 Microbiology Microbiology Results: Microbiology 06/30/22 07:05 Blood Culture - Preliminary Blood - Venous Gram positive cocci Procedures Date of Service Date of Service: 07/06/22 Arterial Line Size (Gauge): 16 Progress Note: A&P Assessment and plan (1) Status post colostomy: Status: Acute Assessment and Plan: Continues to improve slowly Stoma functioning well [address] abdomen soft Oral intake better Push to increase activity level, physical therapy Time Spent With Patient Time: Total time spent is greater than 50% in coordination of care (as documented) at patient's floor/unit and/or counseling patient: Quality Stroke Does the patient have a stroke diagnosis?: No VTE Prior VTE?: No VTE Risk Level:: Medical - moderate - high VTE Device Contraindication: N/A - Device Ordered VTE Drug Contraindication: N/A - Med Ordered
[2022-07-06] MEDS: DULoxetine HCl 60 MG CAPSULE.DR PO (19:50)
[2022-07-06] MEDS: Gabapentin 300 MG CAPSULE PO (20:06)
[2022-07-07] VITALS (7 sets, daily range): BP systolic 124–137; BP diastolic 72–84; PULSE 112–126; RESP 16–20; TEMP 35.9–37.8; O2SAT 92–96; BMI 38.1
[2022-07-07] MEDS: Voriconazole 200 MG in 0.9 % Sodium Chloride 100 ML 50 MG IV (03:05)
[2022-07-07] MEDS: metroNIDAZOLE/NS 500 MG/100 ML PIGGYBACK 100 MG IV ×2 (03:46→12:37)
[2022-07-07] MEDS: Enoxaparin Sodium 100 MG/ML SYRINGE 90 MG SUBCUT ×2 (04:08→17:06)
[2022-07-07] MEDS: Acetaminophen 325 MG TABLET 650 MG PO ×2 (04:08→12:43)
[2022-07-07] MEDS: vancomycin HCL 125 MG CAPSULE 500 MG PO ×2 (04:08→08:10)
[2022-07-07] MEDS: Heparin Sodium,Porcine Flush 50 UNITS, 0.9 % Sodium Chloride Flush 5 ML IVFLUSH ×3 (08:08→20:23)
[2022-07-07] MEDS: Nystatin Powder 15 GM BOTTLE 1 APPL TOPICAL ×2 (08:10→20:30)
[2022-07-07] MEDS: Dicyclomine HCl 10 MG CAPSULE 20 MG PO ×3 (08:10→17:05)
[2022-07-07] MEDS: Topiramate 100 MG TABLET 200 MG PO ×2 (08:10→20:24)
[2022-07-07] MEDS: 0.9 % Sodium Chloride Flush 3 ML SYRINGE IVFLUSH ×2 (08:11→15:00)
[2022-07-07] MEDS: HYDROmorphone HCl 0.5 MG/0.5 ML SYRINGE IVPUSH ×3 (08:26→20:22)
--- NOTE | 2022-07-07 11:41 | MHC.CM.PN ---
Per ROUNDS discussion, Patient is not yet medically cleared for dc (IV Dilaudid, IV Flagyl, IV Voriconazole); PT recommends STR and CM will continue to follow.
--- NOTE | 2022-07-07 12:18 | HO.PM.IMPN ---
Subjective Subjective Date of Service: 07/07/22 Interval History: Complaining of abdominal distension and gas, has been in bed reluctant to be out of bed to chair due to generalized weakness denies chest pain, no shortness of breath, no palpitations, no fevers no chills tolerating diet felt nauseous this morning no vomiting, colostomy with green loose stool. Review of Systems Review of Systems: Yes all other systems are reviewed and are negative Physical Exam Vital Signs: Vital Signs: Last Vital Signs Temp 96.6 F L 07/07/22 07:29 Pulse 112 H 07/07/22 10:35 Resp 16 07/07/22 07:29 BP 126/76 07/07/22 10:35 Pulse Ox 95 07/07/22 10:35 O2 Del Method 07/07/22 07:29 O2 Flow Rate 1 07/06/22 07:14 FiO2 97 07/01/22 20:00 Oxygen Flow Rate 35 06/13/22 21:00 BMI result Body Mass Index 38.1 Const: Other: Gen: Awake alert no distress Neck: supple Lungs: clear to auscultation bilaterally Heart: regular, tachycardic, no murmurs Abd: soft, stoma with pasty stool, non-tender, distended bowel sounds audible Ext: no edema Skin: warm/well-perfused Neuro: alert and oriented x3, no focal findings Psych: appropriate affect ? Objective Data Active Medications Acetaminophen (Acetaminophen 325 Mg Tablet) 650 mg PO Q6H PRN PRN Reason: fever Last Admin: 07/07/22 04:08 Dose: 650 mg Documented By: CASS Heparin Sodium (Porcine) 50 (units/ Sodium Chloride 5 ml) 0 units IVFLUSH TID [facility] Last Admin: 07/07/22 08:08 Dose: 50 unit Documented By: MARIAN Dicyclomine HCl (Dicyclomine Hcl 10 Mg Capsule) 20 mg PO TIDAC [facility] Last Admin: 07/07/22 08:10 Dose: 20 mg Documented By: MARIAN Duloxetine HCl (Duloxetine Hcl 60 Mg Capsule.) 60 mg PO BEDTIME [facility] Last Admin: 07/06/22 19:50 Dose: 60 mg Documented By: CASS Enoxaparin Sodium (Enoxaparin Sodium 100 Mg/Ml Syringe) 90 mg 1 mg/kg (90 mg) SUBCUT Q12H [facility] Last Admin: 07/07/22 04:08 Dose: 90 mg Documented By: CASS Gabapentin (Gabapentin 300 Mg Capsule) 300 mg PO BEDTIME [facility] Last Admin: 07/06/22 20:06 Dose: 300 mg Documented By: CASS Hydromorphone HCl (Hydromorphone Hcl 0.5 Mg/0.5 Ml Syringe) 0.5 mg IVPUSH Q4H PRN; Protocol PRN Reason: mild pain Last Admin: 07/07/22 08:26 Dose: 0.5 mg Documented By: MARIAN Metronidazole (Flagyl) 500 mg in 100 mls @ 100 mls/hr IV Q8H [facility] Last Infusion: 07/07/22 05:55 Dose: 0 mls/hr Documented By: CASS Voriconazole 200 mg/ Sodium (Chloride) 100 mls @ 50 mls/hr IV Q12H [facility] Last Infusion: 07/07/22 05:56 Dose: 0 mls/hr Documented By: CASS Metoprolol Tartrate (Metoprolol Tartrate 100 Mg Tablet) 100 mg PO BID [facility]; Protocol Last Admin: 07/01/22 08:09 Dose: 100 mg Documented By: LAUREN Patient Own Med ( (Ajovy 1.5 Ml)) 1.5 ml SUBCUT Q30D [facility] Last Admin: 06/30/22 13:56 Dose: 1.5 ml Documented By: LAKESHIA Nystatin (Nystatin Powder 15 Gm Bottle) 1 appl TOPICAL BID [facility]; Protocol Last Admin: 07/07/22 08:10 Dose: 1 appl Documented By: MARIAN Ondansetron HCl (Ondansetron Hcl 4 Mg/2 Ml Vial) 4 mg IVPUSH Q6H PRN PRN Reason: Nausea Last Admin: 07/04/22 23:04 Dose: 4 mg Documented By: FRANTZ Oxycodone HCl (Oxycodone Hcl Immed Release 5 Mg Tablet) 10 mg PO Q4H PRN PRN Reason: Pain, Moderate (Pain Scale 4-6 Last Admin: 07/06/22 16:30 Dose: 10 mg Documented By: MARIAN Pharmacy Consult (Consult Rx Perform Med Rec) 1 each MISCELLANE ONCE PRN PRN Reason: Consult order Simethicone (Simethicone 80 Mg Tab.Chew) 80 mg PO QIDWMHS PRN PRN Reason: GI Upset Last Admin: 07/06/22 19:53 Dose: 80 mg Documented By: CASS Sodium Chloride (0.9 % Sodium Chloride Flush 3 Ml Syringe) 3 ml IVFLUSH QSHIFT [facility] Last Admin: 07/07/22 08:11 Dose: 3 ml Documented By: MARIAN Sumatriptan Succinate (Sumatriptan Succinate 6 Mg/0.5 Ml Vial) 6 mg SUBCUT DAILY PRN PRN Reason: migraine headache Topiramate (Topiramate 100 Mg Tablet) 200 mg PO BID [facility] Last Admin: 07/07/22 08:10 Dose: 200 mg Documented By: MARIAN Vancomycin HCl (Vancomycin Hcl 125 Mg Capsule) 250 mg PO Q6H [facility] Labs CBC & Chem 7: 07/05/22 06:37 07/05/22 06:37 Microbiology Microbiology Results: Microbiology 06/30/22 07:05 Blood Culture - Final Blood - Venous Corynebacterium species 07/01/22 16:44 Blood Culture - Final Blood - Venous No growth after 5 days. 07/01/22 16:45 Blood Culture - Final Blood - Venous No growth after 5 days. Assessment and Plan (1) Colitis due to Clostridioides difficile: Status: Acute (2) Leukocytosis: Status: Acute Plan Be feet be keep 62yo F admitted 05/18/22 with colitis/Crohn's flare.? Flex sig showed perforation with abscess; taken to OR for ex-lap with colostomy after found to have extensive fecal soilage in peritoneum.? Severely septic, sent to ICU intubated.? Course since then complicated by multiple intra-abdominal abscesses causing fevers, with multiple drains placed by IR.? Treated with metronidazole + meropenem and given TPN.? Extubated 06/07/22, transitioned to tube feeds and then to oral diet.Now with C difficile colitis, severe.? Slowly improving 1. Severe C difficile colitis On by mouth vancomycin which change dose to vancomycin 250 mg q.i.d. DC IV metronidazole day 7, WBC normalized, no fevers Persistent abdominal bloating continue simethicone advice out of bed to chair and ambulation 2. Status post septic shock secondary to perforated viscus with fecal peritonitis/ Fungal Peritonitis - voriconazole (09/06) [will change to oral upon eventual discharge] - s/p ex-lap/colostomy - got 3 wk of meropenem , IV meropenem restarted on due to leukocytosis will DC IV meropenem. - extubated 06/07/22, given TPN, transitioned to tube feeds, then to oral feeds - abscess drainage x3; latest IR-guided drainage on 06/22 with removal of 500 mL of purulent fluid; Encourage out of bed to chair, incentive spirometry 3.LUE DVT(catheter-associated) proximal left brachial vein diagnosed on 06/27 - midline catheter removed, continue enoxaparin 1 mg/kg q12h 4.SABINE - resolved -follow renals/divalents 5.# acute respiratory failure - extubated in ICU 06/07/22 6.# recurrent toxic metabolic encephalopathy likely related to ICU delirium resolved ?VTE ppx: LMWH # dispo: will need rehab, likely [facility] Patient requires continued hospitalization secondary to the need for placement Quality Stroke Does the patient have a stroke diagnosis?: No VTE Prior VTE?: No VTE Risk Level:: Medical - moderate - high VTE Device Contraindication: N/A - Device Ordered VTE Drug Contraindication: N/A - Med Ordered
[2022-07-07] MEDS: vancomycin HCL 125 MG CAPSULE 250 MG PO ×3 (12:38→22:40)
--- NOTE | 2022-07-07 13:14 | PM.PNGS ---
Subjective Subjective Date of Service: 07/07/22 Interval history: oral intake much improved stoma functioning well Physical Exam Vital Signs: Vital Signs: Last Vital Signs Temp 97.6 F 07/07/22 12:00 Pulse 115 H 07/07/22 12:00 Resp 16 07/07/22 12:00 BP 132/78 07/07/22 12:00 Pulse Ox 96 07/07/22 12:00 O2 Del Method 07/07/22 12:00 O2 Flow Rate 1 07/06/22 07:14 FiO2 97 07/01/22 20:00 Oxygen Flow Rate 35 06/13/22 21:00 BMI result Body Mass Index 38.1 Const: Other: mildly SOB as baseline Resp: Effort & Inspection: normal respiratory effort Cardio: Rate: tachycardic GI: Other: soft, stoma functioning well Objective Data Active Medications Acetaminophen (Acetaminophen 325 Mg Tablet) 650 mg PO Q6H PRN PRN Reason: fever Last Admin: 07/07/22 12:43 Dose: 650 mg Documented By: MARIAN Heparin Sodium (Porcine) 50 (units/ Sodium Chloride 5 ml) 0 units IVFLUSH TID [facility] Last Admin: 07/07/22 08:08 Dose: 50 unit Documented By: MARIAN Dicyclomine HCl (Dicyclomine Hcl 10 Mg Capsule) 20 mg PO TIDAC [facility] Last Admin: 07/07/22 12:38 Dose: 20 mg Documented By: MARIAN Duloxetine HCl (Duloxetine Hcl 60 Mg Capsule.Dr) 60 mg PO BEDTIME [facility] Last Admin: 07/06/22 19:50 Dose: 60 mg Documented By: CASS Enoxaparin Sodium (Enoxaparin Sodium 100 Mg/Ml Syringe) 90 mg 1 mg/kg (90 mg) SUBCUT Q12H [facility] Last Admin: 07/07/22 04:08 Dose: 90 mg Documented By: CASS Gabapentin (Gabapentin 300 Mg Capsule) 300 mg PO BEDTIME [facility] Last Admin: 07/06/22 20:06 Dose: 300 mg Documented By: CASS Hydromorphone HCl (Hydromorphone Hcl 0.5 Mg/0.5 Ml Syringe) 0.5 mg IVPUSH Q4H PRN; Protocol PRN Reason: mild pain Last Admin: 07/07/22 08:26 Dose: 0.5 mg Documented By: MARIAN Metronidazole (Flagyl) 500 mg in 100 mls @ 100 mls/hr IV Q8H [facility] Last Admin: 07/07/22 12:37 Dose: 100 mls/hr Documented By: MARIAN Voriconazole 200 mg/ Sodium (Chloride) 100 mls @ 50 mls/hr IV Q12H [facility] Last Infusion: 07/07/22 05:56 Dose: 0 mls/hr Documented By: CASS Metoprolol Tartrate (Metoprolol Tartrate 100 Mg Tablet) 100 mg PO BID [facility]; Protocol Last Admin: 07/01/22 08:09 Dose: 100 mg Documented By: LAUREN Patient Own Med ( (Ajovy 1.5 Ml)) 1.5 ml SUBCUT Q30D [facility] Last Admin: 06/30/22 13:56 Dose: 1.5 ml Documented By: LAKESHIA Nystatin (Nystatin Powder 15 Gm Bottle) 1 appl TOPICAL BID [facility]; Protocol Last Admin: 07/07/22 08:10 Dose: 1 appl Documented By: MARIAN Ondansetron HCl (Ondansetron Hcl 4 Mg/2 Ml Vial) 4 mg IVPUSH Q6H PRN PRN Reason: Nausea Last Admin: 07/04/22 23:04 Dose: 4 mg Documented By: FRANTZ Oxycodone HCl (Oxycodone Hcl Immed Release 5 Mg Tablet) 10 mg PO Q4H PRN PRN Reason: Pain, Moderate (Pain Scale 4-6 Last Admin: 07/06/22 16:30 Dose: 10 mg Documented By: MARIAN Pharmacy Consult (Consult Rx Perform Med Rec) 1 each MISCELLANE ONCE PRN PRN Reason: Consult order Simethicone (Simethicone 80 Mg Tab.Chew) 80 mg PO QIDWMHS PRN PRN Reason: GI Upset Last Admin: 07/06/22 19:53 Dose: 80 mg Documented By: CASS Sodium Chloride (0.9 % Sodium Chloride Flush 3 Ml Syringe) 3 ml IVFLUSH QSHIFT [facility] Last Admin: 07/07/22 08:11 Dose: 3 ml Documented By: MARIAN Sumatriptan Succinate (Sumatriptan Succinate 6 Mg/0.5 Ml Vial) 6 mg SUBCUT DAILY PRN PRN Reason: migraine headache Topiramate (Topiramate 100 Mg Tablet) 200 mg PO BID [facility] Last Admin: 07/07/22 08:10 Dose: 200 mg Documented By: MARIAN Vancomycin HCl (Vancomycin Hcl 125 Mg Capsule) 250 mg PO Q6H [facility] Last Admin: 07/07/22 12:38 Dose: 250 mg Documented By: MARIAN Labs CBC & Chem 7: 07/05/22 06:37 07/05/22 06:37 Microbiology Microbiology Results: Microbiology 06/30/22 07:05 Blood Culture - Final Blood - Venous Corynebacterium species 07/01/22 16:44 Blood Culture - Final Blood - Venous No growth after 5 days. 07/01/22 16:45 Blood Culture - Final Blood - Venous No growth after 5 days. Procedures Date of Service Date of Service: 07/07/22 Arterial Line Size (Gauge): 16 Progress Note: A&P Assessment and plan (1) Perforated viscus: Status: Acute Assessment and Plan: stoma functioning PO intake better OOB improving PT Time Spent With Patient Time: Total time spent is greater than 50% in coordination of care (as documented) at patient's floor/unit and/or counseling patient: Quality Stroke Does the patient have a stroke diagnosis?: No VTE Prior VTE?: No VTE Risk Level:: Medical - moderate - high VTE Device Contraindication: N/A - Device Ordered VTE Drug Contraindication: N/A - Med Ordered
--- NOTE | 2022-07-07 13:58 | MHC.CLN ---
F/U PO INTAKE 75% X 2MEALS DIET RX: REGULAR-APPROPRIATE PT ACCEPTING AND DRINKING ENSURE VANILLA TID PROVIDES 1050KCALS, 60G PROTEIN CONTINUE TO MONITOR PO INTAKE CLOSELY
--- NOTE | 2022-07-07 14:33 | PM.GIPN ---
Subjective Subjective Date of Service: 07/07/22 Interval History: still bloated thinks antony is helping, would like it scheduled Critical Care Time (minutes): 0 Physical Exam Vital Signs: Vital Signs: Last Vital Signs Temp 97.6 F 07/07/22 12:00 Pulse 115 H 07/07/22 12:00 Resp 16 07/07/22 12:00 BP 132/78 07/07/22 12:00 Pulse Ox 96 07/07/22 12:00 O2 Del Method 07/07/22 12:00 O2 Flow Rate 1 07/06/22 07:14 FiO2 97 07/01/22 20:00 Oxygen Flow Rate 35 06/13/22 21:00 BMI result Body Mass Index 38.1 Const: Other: alert and oriented conversant Objective Data Labs CBC & Chem 7: 07/05/22 06:37 07/05/22 06:37 Microbiology Microbiology Results: Microbiology 06/30/22 07:05 Blood - Venous Blood Culture - Final Corynebacterium species 07/01/22 16:44 Blood - Venous Blood Culture - Final No growth after 5 days. 07/01/22 16:45 Blood - Venous Blood Culture - Final No growth after 5 days. 06/30/22 07:05 Blood - Venous Blood Culture - Final No growth after 5 days. 06/27/22 01:16 Blood - Venous Blood Culture - Final No growth after 5 days. 06/27/22 01:16 Blood - Venous Blood Culture - Final No growth after 5 days. 06/22/22 16:30 Abdominal Fluid Gram Stain - Final 06/22/22 16:30 Abdominal Fluid Routine Culture - Preliminary Verónica albicans 06/22/22 16:30 Abdominal Fluid Anaerobic Culture - Final NO GROWTH AFTER 5 DAYS 06/24/22 06:14 Blood - Venous Blood Culture - Final No growth after 5 days. 06/24/22 06:14 Blood - Venous Blood Culture - Final No growth after 5 days. 06/02/22 Unknown Abscess Intra-abdominal Fungal Identification - Preliminary Verónica dubliniensis 06/03/22 15:28 Blood - Subclavian Blood Culture - Final No growth after 5 days. 06/03/22 06:15 Blood - Venous Blood Culture - Final No growth after 5 days. 06/03/22 06:15 Blood - Venous Blood Culture - Final No growth after 5 days. 06/02/22 Unknown Peritoneal Fluid Gram Stain - Final 06/02/22 Unknown Peritoneal Fluid Routine Culture - Final Verónica albicans 06/02/22 Unknown Peritoneal Fluid Anaerobic Culture - Final 05/29/22 15:14 Blood - Venous Blood Culture - Final No growth after 5 days. 05/29/22 15:13 Blood - Venous Blood Culture - Final No growth after 5 days. 05/29/22 05:14 Blood - Venous Blood Culture - Final No growth after 5 days. 05/29/22 05:14 Blood - Venous Blood Culture - Final No growth after 5 days. 06/02/22 Unknown Abscess Intra-abdominal Gram Stain - Final 06/02/22 Unknown Abscess Intra-abdominal Routine Culture - Final 06/02/22 Unknown Abscess Intra-abdominal Anaerobic Culture - Final 06/02/22 Unknown Abscess Intra-abdominal Gram Stain - Final 06/02/22 Unknown Abscess Intra-abdominal Routine Culture - Final 05/28/22 Unknown Peritoneal Fluid Gram Stain - Final 05/28/22 Unknown Peritoneal Fluid Anaerobic Culture - Final 05/28/22 Unknown Peritoneal Fluid Body Fluid Culture - Final Verónica dubliniensis 05/29/22 15:05 Sputum - Suctioned Gram Stain - Final 05/29/22 15:05 Sputum - Suctioned Sputum Culture - Final Verónica dubliniensis 05/28/22 16:47 Sputum - Suctioned Gram Stain - Final 05/28/22 16:47 Sputum - Suctioned Sputum Culture - Final Verónica albicans 05/23/22 Unknown Peritoneal Fluid Gram Stain - Final 05/23/22 Unknown Peritoneal Fluid Routine Culture - Final Escherichia coli 05/23/22 Unknown Peritoneal Fluid Anaerobic Culture - Final Clostridium perfringens Bacteroides thetaiotaomicron 05/19/22 08:49 Blood - Venous Blood Culture - Final No growth after 5 days. 05/19/22 08:49 Blood - Venous Blood Culture - Final No growth after 5 days. Procedures Date of Service Date of Service: 07/07/22 Arterial Line Size (Gauge): 16 Progress Note: A&P Assessment and plan (1) Perforated viscus: Status: Acute Assessment and Plan: slow improvement changed simethicone to scheduled Time Spent With Patient Time: Total time spent is greater than 50% in coordination of care (as documented) at patient's floor/unit and/or counseling patient: Quality Stroke Does the patient have a stroke diagnosis?: No VTE Prior VTE?: No VTE Risk Level:: Medical - moderate - high VTE Device Contraindication: N/A - Device Ordered VTE Drug Contraindication: N/A - Med Ordered
[2022-07-07] MEDS: Voriconazole 200 MG in 0.9 % Sodium Chloride 100 ML IV (14:58)
[2022-07-07] MEDS: Simethicone 80 MG TAB.CHEW PO ×2 (17:06→20:23)
[2022-07-07] MEDS: oxyCODONE HCl Immed Release 5 MG TABLET 10 MG PO ×2 (17:11→22:49)
[2022-07-07] MEDS: DULoxetine HCl 60 MG CAPSULE.DR PO (20:23)
[2022-07-07] MEDS: Gabapentin 300 MG CAPSULE PO (20:24)
[2022-07-08] VITALS (7 sets, daily range): BP systolic 119–156; BP diastolic 66–83; PULSE 118–129; RESP 16–20; TEMP 36.2–37.6; O2SAT 92–96; BMI 38.0
[2022-07-08] MEDS: Voriconazole 200 MG in 0.9 % Sodium Chloride 100 ML 50 MG IV ×2 (00:48→14:06)
[2022-07-08] MEDS: Enoxaparin Sodium 100 MG/ML SYRINGE 90 MG SUBCUT ×2 (05:30→15:54)
[2022-07-08] MEDS: vancomycin HCL 125 MG CAPSULE 250 MG PO ×3 (05:30→16:02)
[2022-07-08] MEDS: HYDROmorphone HCl 0.5 MG/0.5 ML SYRINGE IVPUSH ×4 (06:25→21:44)
[2022-07-08] MEDS: Simethicone 80 MG TAB.CHEW PO ×4 (09:11→20:54)
[2022-07-08] MEDS: Dicyclomine HCl 10 MG CAPSULE 20 MG PO ×3 (09:11→15:53)
[2022-07-08] MEDS: Topiramate 100 MG TABLET 200 MG PO ×2 (09:11→20:54)
[2022-07-08] MEDS: Nystatin Powder 15 GM BOTTLE 1 APPL TOPICAL (09:12)
[2022-07-08] MEDS: Heparin Sodium,Porcine Flush 50 UNITS, 0.9 % Sodium Chloride Flush 5 ML IVFLUSH ×3 (09:12→20:57)
[2022-07-08] MEDS: 0.9 % Sodium Chloride Flush 3 ML SYRINGE IVFLUSH (09:12)
[2022-07-08] MEDS: oxyCODONE HCl Immed Release 5 MG TABLET 10 MG PO (09:18)
--- NOTE | 2022-07-08 11:07 | HO.PM.IMPN ---
Subjective Subjective Date of Service: 07/08/22 Interval History: Complaining of persistent abdominal bloating and discomfort at site of colostomy attempted out of bed to chair yesterday but patient could not tolerate sitting upright at edge of the bed due to unsteady balance and weakness, denies fever chills, tolerating diet no nausea no vomiting colostomy back with green liquidy stool. Review of Systems [employer] no headache ,no dizziness General no fever, no chills Respiratory no cough, no shortness of breath Review of Systems: Yes all other systems are reviewed and are negative Physical Exam Vital Signs: Vital Signs: Last Vital Signs Temp 97.1 F 07/08/22 08:00 Pulse 118 H 07/08/22 08:00 Resp 16 07/08/22 08:00 BP 119/69 07/08/22 08:00 Pulse Ox 94 07/08/22 08:00 O2 Del Method 07/08/22 08:00 O2 Flow Rate 1 07/06/22 07:14 FiO2 97 07/01/22 20:00 Oxygen Flow Rate 35 06/13/22 21:00 BMI result Body Mass Index 38.0 Const: Other: Gen:? Awake alert no distress Neck: supple, no JVD Lungs: clear to auscultation bilaterally Heart: regular, tachycardic, no murmurs Abd: soft, stoma with liquidy stool, non-tender, distended, bowel sounds audible, abdominal wall edema, GP drained with scanned drainage Ext: Bilateral pitting edema Skin: warm/well-perfused Neuro: alert and oriented x3, no focal findings Psych: appropriate affect Objective Data Active Medications Acetaminophen (Acetaminophen 325 Mg Tablet) 650 mg PO Q6H PRN PRN Reason: fever Last Admin: 07/07/22 12:43 Dose: 650 mg Documented By: MARIAN Heparin Sodium (Porcine) 50 (units/ Sodium Chloride 5 ml) 0 units IVFLUSH TID [facility] Last Admin: 07/08/22 09:12 Dose: 50 unit Documented By: SANTOS Dicyclomine HCl (Dicyclomine Hcl 10 Mg Capsule) 20 mg PO TIDAC [facility] Last Admin: 07/08/22 09:11 Dose: 20 mg Documented By: SANTOS Duloxetine HCl (Duloxetine Hcl 60 Mg Capsule.) 60 mg PO BEDTIME [facility] Last Admin: 07/07/22 20:23 Dose: 60 mg Documented By: SHANTI Enoxaparin Sodium (Enoxaparin Sodium 100 Mg/Ml Syringe) 90 mg 1 mg/kg (90 mg) SUBCUT Q12H [facility] Last Admin: 07/08/22 05:30 Dose: 90 mg Documented By: SHANTI Gabapentin (Gabapentin 300 Mg Capsule) 300 mg PO BEDTIME [facility] Last Admin: 07/07/22 20:24 Dose: 300 mg Documented By: SHANTI Hydromorphone HCl (Hydromorphone Hcl 0.5 Mg/0.5 Ml Syringe) 0.5 mg IVPUSH Q4H PRN; Protocol PRN Reason: mild pain Last Admin: 07/08/22 06:25 Dose: 0.5 mg Documented By: SHANTI Voriconazole 200 mg/ Sodium (Chloride) 100 mls @ 50 mls/hr IV Q12H [facility] Last Infusion: 07/08/22 02:58 Dose: 0 mls/hr Documented By: SHANTI Metoprolol Tartrate (Metoprolol Tartrate 100 Mg Tablet) 100 mg PO BID [facility]; Protocol Last Admin: 07/01/22 08:09 Dose: 100 mg Documented By: LAUREN Patient Own Med ( (Ajovy 1.5 Ml)) 1.5 ml SUBCUT Q30D [facility] Last Admin: 06/30/22 13:56 Dose: 1.5 ml Documented By: LAKESHIA Nystatin (Nystatin Powder 15 Gm Bottle) 1 appl TOPICAL BID [facility]; Protocol Last Admin: 07/08/22 09:12 Dose: 1 appl Documented By: SANTOS Ondansetron HCl (Ondansetron Hcl 4 Mg/2 Ml Vial) 4 mg IVPUSH Q6H PRN PRN Reason: Nausea Last Admin: 07/04/22 23:04 Dose: 4 mg Documented By: FRANTZ Oxycodone HCl (Oxycodone Hcl Immed Release 5 Mg Tablet) 10 mg PO Q4H PRN PRN Reason: Pain, Moderate (Pain Scale 4-6 Last Admin: 07/08/22 09:18 Dose: 10 mg Documented By: SANTOS Pharmacy Consult (Consult Rx Perform Med Rec) 1 each MISCELLANE ONCE PRN PRN Reason: Consult order Simethicone (Simethicone 80 Mg Tab.Chew) 80 mg PO QIDWMHS [facility] Last Admin: 07/08/22 09:11 Dose: 80 mg Documented By: SANTOS Sodium Chloride (0.9 % Sodium Chloride Flush 3 Ml Syringe) 3 ml IVFLUSH QSHIFT [facility] Last Admin: 07/08/22 09:12 Dose: 3 ml Documented By: SANTOS Sumatriptan Succinate (Sumatriptan Succinate 6 Mg/0.5 Ml Vial) 6 mg SUBCUT DAILY PRN PRN Reason: migraine headache Topiramate (Topiramate 100 Mg Tablet) 200 mg PO BID [facility] Last Admin: 07/08/22 09:11 Dose: 200 mg Documented By: SANTOS Vancomycin HCl (Vancomycin Hcl 125 Mg Capsule) 250 mg PO Q6H [facility] Last Admin: 07/08/22 05:30 Dose: 250 mg Documented By: LINNETTERISFarshad Labs CBC & Chem 7: 07/05/22 06:37 07/05/22 06:37 Microbiology Microbiology Results: Microbiology 06/30/22 07:05 Blood Culture - Final Blood - Venous Corynebacterium species Assessment and Plan (1) Colitis due to Clostridioides difficile: Status: Acute (2) Leukocytosis: Status: Acute Plan 62yo F admitted 05/18/22 with colitis/Crohn's flare.? Flex sig showed perforation with abscess; taken to OR for ex-lap with colostomy after found to have extensive fecal soilage in peritoneum.? Severely septic, sent to ICU intubated.? Course since then complicated by multiple intra-abdominal abscesses causing fevers, with multiple drains placed by IR.? Treated with metronidazole + meropenem and given TPN.? Extubated 06/07/22, transitioned to tube feeds and then to oral diet.Now with C difficile colitis, severe.? Slowly improving 1. Severe C difficile colitis On by mouth vancomycin 250 mg q.i.d.day 8, s/p IV metronidazole x 7 days, WBC normalized, no fevers Persistent abdominal bloating continue simethicone advice activity as tolerated 2. Status post septic shock secondary to perforated viscus with fecal peritonitis/ Fungal Peritonitis - voriconazole () [will change to oral upon eventual discharge] - s/p ex-lap/colostomy - got 3 wk of meropenem , IV meropenem restarted on due to leukocytosis stopped on 07/07 - extubated 06/07/22, given TPN, transitioned to tube feeds, then to oral feeds - abscess drainage x3; latest IR-guided drainage on 06/22 with removal of 500 mL of purulent fluid now yemi drain with minimal drainage; Encourage out of bed to chair, incentive spirometry Encourage high-protein diet 3.LUE DVT(catheter-associated) proximal left brachial vein diagnosed on 06/27 - midline catheter removed, continue enoxaparin 1 mg/kg q12h day 11, will discuss duration of anticoagulation with Hematology 4.SABINE - resolved -follow renals/divalents 5.# acute respiratory failure - extubated in ICU 06/07/22 6.# recurrent toxic metabolic encephalopathy likely related to ICU delirium resolved 7 # sinus tachycardia no chest pain no palpitation on metoprolol 100 b.i.d. ?VTE ppx: LMWH # dispo: will need rehab Patient requires continued hospitalization secondary to the need for placement. Quality Stroke Does the patient have a stroke diagnosis?: No VTE Prior VTE?: No VTE Risk Level:: Medical - moderate - high VTE Device Contraindication: N/A - Device Ordered VTE Drug Contraindication: N/A - Med Ordered
[2022-07-08] MEDS: Gabapentin 300 MG CAPSULE PO (20:55)
[2022-07-08] MEDS: DULoxetine HCl 60 MG CAPSULE.DR PO (20:55)
[2022-07-09] VITALS (9 sets, daily range): BP systolic 115–137; BP diastolic 68–90; PULSE 116–131; RESP 16–18; TEMP 36.4–37.6; O2SAT 90–96; BMI 38.2
[2022-07-09] MEDS: Nystatin Powder 15 GM BOTTLE 1 APPL TOPICAL (00:05)
[2022-07-09] MEDS: vancomycin HCL 125 MG CAPSULE 250 MG PO ×5 (00:05→22:01)
[2022-07-09] MEDS: 0.9 % Sodium Chloride Flush 3 ML SYRINGE IVFLUSH ×4 (00:05→20:51)
[2022-07-09] MEDS: Voriconazole 200 MG in 0.9 % Sodium Chloride 100 ML 50 MG IV ×2 (00:56→13:45)
[2022-07-09] MEDS: Enoxaparin Sodium 100 MG/ML SYRINGE 90 MG SUBCUT ×2 (04:26→17:36)
--- NOTE | 2022-07-09 09:04 | PM.PNGS ---
Subjective Subjective Date of Service: 07/09/22 Interval history: feeling better no nausea with eating ostomy working feels weak hasnt been able to work with PT much yet Physical Exam Vital Signs: Vital Signs: Last Vital Signs Temp 97.7 F 07/09/22 07:58 Pulse 116 H 07/09/22 07:58 Resp 18 07/09/22 07:58 BP 123/77 07/09/22 07:58 Pulse Ox 95 07/09/22 07:58 O2 Del Method 07/09/22 07:58 O2 Flow Rate 1 07/06/22 07:14 FiO2 97 07/01/22 20:00 Oxygen Flow Rate 35 06/13/22 21:00 BMI result Body Mass Index 38.2 GI: Other: abdomen is soft and nontender, ostomy looks like its working well and midline incision looks good drain with some liquid material at base : Other: abdomen soft nontender and ostomy working well drainage bag with some purulent material in the bag Objective Data Active Medications Acetaminophen (Acetaminophen 325 Mg Tablet) 650 mg PO Q6H PRN PRN Reason: fever Last Admin: 07/07/22 12:43 Dose: 650 mg Documented By: MARIAN Heparin Sodium (Porcine) 50 (units/ Sodium Chloride 5 ml) 0 units IVFLUSH TID [facility] Last Admin: 07/08/22 20:57 Dose: 50 unit Documented By: ROSE Dicyclomine HCl (Dicyclomine Hcl 10 Mg Capsule) 20 mg PO TIDAC [facility] Last Admin: 07/08/22 15:53 Dose: 20 mg Documented By: SANTOS Duloxetine HCl (Duloxetine Hcl 60 Mg Capsule.) 60 mg PO BEDTIME [facility] Last Admin: 07/08/22 20:55 Dose: 60 mg Documented By: ROSE Enoxaparin Sodium (Enoxaparin Sodium 100 Mg/Ml Syringe) 90 mg 1 mg/kg (90 mg) SUBCUT Q12H [facility] Last Admin: 07/09/22 04:26 Dose: 90 mg Documented By: ROSE Gabapentin (Gabapentin 300 Mg Capsule) 300 mg PO BEDTIME [facility] Last Admin: 07/08/22 20:55 Dose: 300 mg Documented By: ROSE Hydromorphone HCl (Hydromorphone Hcl 0.5 Mg/0.5 Ml Syringe) 0.5 mg IVPUSH Q4H PRN; Protocol PRN Reason: mild pain Last Admin: 07/08/22 21:44 Dose: 0.5 mg Documented By: ROSE Voriconazole 200 mg/ Sodium (Chloride) 100 mls @ 50 mls/hr IV Q12H [facility] Last Infusion: 07/09/22 07:02 Dose: 50 mls/hr Documented By: ROSE Metoprolol Tartrate (Metoprolol Tartrate 100 Mg Tablet) 100 mg PO BID [facility]; Protocol Last Admin: 07/01/22 08:09 Dose: 100 mg Documented By: LAUREN Patient Own Med ( (Ajovy 1.5 Ml)) 1.5 ml SUBCUT Q30D [facility] Last Admin: 06/30/22 13:56 Dose: 1.5 ml Documented By: LAKESHIA Nystatin (Nystatin Powder 15 Gm Bottle) 1 appl TOPICAL BID [facility]; Protocol Last Admin: 07/09/22 00:05 Dose: 1 appl Documented By: ROSE Ondansetron HCl (Ondansetron Hcl 4 Mg/2 Ml Vial) 4 mg IVPUSH Q6H PRN PRN Reason: Nausea Last Admin: 07/04/22 23:04 Dose: 4 mg Documented By: FRANTZ Oxycodone HCl (Oxycodone Hcl Immed Release 5 Mg Tablet) 10 mg PO Q4H PRN PRN Reason: Pain, Moderate (Pain Scale 4-6 Last Admin: 07/08/22 09:18 Dose: 10 mg Documented By: SANTOS Pharmacy Consult (Consult Rx Perform Med Rec) 1 each MISCELLANE ONCE PRN PRN Reason: Consult order Simethicone (Simethicone 80 Mg Tab.Chew) 80 mg PO QIDWMHS [facility] Last Admin: 07/08/22 20:54 Dose: 80 mg Documented By: ROSE Sodium Chloride (0.9 % Sodium Chloride Flush 3 Ml Syringe) 3 ml IVFLUSH QSHIFT [facility] Last Admin: 07/09/22 00:05 Dose: 3 ml Documented By: ROSE Sumatriptan Succinate (Sumatriptan Succinate 6 Mg/0.5 Ml Vial) 6 mg SUBCUT DAILY PRN PRN Reason: migraine headache Topiramate (Topiramate 100 Mg Tablet) 200 mg PO BID [facility] Last Admin: 07/08/22 20:54 Dose: 200 mg Documented By: ROSE Vancomycin HCl (Vancomycin Hcl 125 Mg Capsule) 250 mg PO Q6H [facility] Last Admin: 07/09/22 04:26 Dose: 250 mg Documented By: ROSE Labs CBC & Chem 7: 07/05/22 06:37 07/05/22 06:37 Procedures Date of Service Date of Service: 07/09/22 Arterial Line Size (Gauge): 16 Progress Note: A&P Assessment and plan (1) Colitis due to Clostridioides difficile: Status: Acute Assessment and Plan: pt s/p colostomy creation for bowel perforation due to IBD - recent c diff but doing better. tolerating po diet and bowels working. plan to cont with conservative care re surgery - aggressive nutrition support and PT to regain strength and function med team managing c diff and other med issues cont with drain (2) Crohn's disease: Status: Acute Time Spent With Patient Time: Total time spent is greater than 50% in coordination of care (as documented) at patient's floor/unit and/or counseling patient: Quality Stroke Does the patient have a stroke diagnosis?: No VTE Prior VTE?: No VTE Risk Level:: Medical - moderate - high VTE Device Contraindication: N/A - Device Ordered VTE Drug Contraindication: N/A - Med Ordered
[2022-07-09] MEDS: Dicyclomine HCl 10 MG CAPSULE 20 MG PO (09:18)
[2022-07-09] MEDS: Topiramate 100 MG TABLET 200 MG PO ×2 (09:19→20:50)
[2022-07-09] MEDS: Simethicone 80 MG TAB.CHEW PO ×4 (09:19→20:50)
[2022-07-09] MEDS: Heparin Sodium,Porcine Flush 50 UNITS, 0.9 % Sodium Chloride Flush 5 ML IVFLUSH ×3 (09:19→20:50)
[2022-07-09] MEDS: HYDROmorphone HCl 0.5 MG/0.5 ML SYRINGE IVPUSH ×4 (09:21→22:01)
--- NOTE | 2022-07-09 10:43 | P.PNIM_ITS ---
Subjective Subjective Date of Service: 07/09/22 Interval History: Feeling better this morning denies abdominal cramping no gas, feeling less weaker, denies fever chills tolerating diet taking protein shakes motivated to work with physical therapy tomorrow, no acute issues overnight. Review of Systems [employer] no headache no dizziness CVS no chest pain Skin no rash Review of Systems: Yes all other systems are reviewed and are negative Physical Exam Vital Signs: Vital Signs: Last Vital Signs Temp 97.7 F 07/09/22 07:58 Pulse 116 H 07/09/22 07:58 Resp 17 07/09/22 09:21 BP 123/77 07/09/22 07:58 Pulse Ox 95 07/09/22 07:58 O2 Del Method 07/09/22 07:58 O2 Flow Rate 1 07/06/22 07:14 FiO2 97 07/01/22 20:00 Oxygen Flow Rate 35 06/13/22 21:00 BMI result Body Mass Index 38.2 Const: Other: Gen:? Awake alert no distress Neck: supple, no JVD Lungs: clear to auscultation bilaterally Heart: regular, tachycardic, no murmurs Abd: soft, stoma with liquidy stool unchanged from yesterday, non-tender, distended, bowel sounds audible, abdominal wall edema, GP drained with scanned drainage Ext:? Bilateral pitting edema Skin: warm/well-perfused Neuro: alert and oriented x3, no focal findings Psych: appropriate affect Objective Data Active Medications Acetaminophen (Acetaminophen 325 Mg Tablet) 650 mg PO Q6H PRN PRN Reason: fever Last Admin: 07/07/22 12:43 Dose: 650 mg Documented By: MARIAN Heparin Sodium (Porcine) 50 (units/ Sodium Chloride 5 ml) 0 units IVFLUSH TID [facility] Last Admin: 07/09/22 09:19 Dose: 50 unit Documented By: SANTOS Dicyclomine HCl (Dicyclomine Hcl 10 Mg Capsule) 20 mg PO TIDAC [facility] Last Admin: 07/09/22 09:18 Dose: 20 mg Documented By: SANTOS Duloxetine HCl (Duloxetine Hcl 60 Mg Capsule.) 60 mg PO BEDTIME [facility] Last Admin: 07/08/22 20:55 Dose: 60 mg Documented By: ROSE Enoxaparin Sodium (Enoxaparin Sodium 100 Mg/Ml Syringe) 90 mg 1 mg/kg (90 mg) SUBCUT Q12H [facility] Last Admin: 07/09/22 04:26 Dose: 90 mg Documented By: ROSE Gabapentin (Gabapentin 300 Mg Capsule) 300 mg PO BEDTIME [facility] Last Admin: 07/08/22 20:55 Dose: 300 mg Documented By: ROSE Hydromorphone HCl (Hydromorphone Hcl 0.5 Mg/0.5 Ml Syringe) 0.5 mg IVPUSH Q4H PRN; Protocol PRN Reason: mild pain Last Admin: 07/09/22 09:21 Dose: 0.5 mg Documented By: SANTOS Voriconazole 200 mg/ Sodium (Chloride) 100 mls @ 50 mls/hr IV Q12H [facility] Last Infusion: 07/09/22 09:26 Dose: 0 mls/hr Documented By: SANTOS Metoprolol Tartrate (Metoprolol Tartrate 100 Mg Tablet) 100 mg PO BID [facility]; Protocol Last Admin: 07/01/22 08:09 Dose: 100 mg Documented By: LAUREN Patient Own Med ( (Ajovy 1.5 Ml)) 1.5 ml SUBCUT Q30D [facility] Last Admin: 06/30/22 13:56 Dose: 1.5 ml Documented By: LAKESHIA Nystatin (Nystatin Powder 15 Gm Bottle) 1 appl TOPICAL BID [facility]; Protocol Last Admin: 07/09/22 00:05 Dose: 1 appl Documented By: ROSE Ondansetron HCl (Ondansetron Hcl 4 Mg/2 Ml Vial) 4 mg IVPUSH Q6H PRN PRN Reason: Nausea Last Admin: 07/04/22 23:04 Dose: 4 mg Documented By: FRANTZ Oxycodone HCl (Oxycodone Hcl Immed Release 5 Mg Tablet) 10 mg PO Q4H PRN PRN Reason: Pain, Moderate (Pain Scale 4-6 Last Admin: 07/08/22 09:18 Dose: 10 mg Documented By: SANTOS Pharmacy Consult (Consult Rx Perform Med Rec) 1 each MISCELLANE ONCE PRN PRN Reason: Consult order Simethicone (Simethicone 80 Mg Tab.Chew) 80 mg PO QIDWMHS [facility] Last Admin: 07/09/22 09:19 Dose: 80 mg Documented By: SANTOS Sodium Chloride (0.9 % Sodium Chloride Flush 3 Ml Syringe) 3 ml IVFLUSH QSHIFT [facility] Last Admin: 07/09/22 09:25 Dose: 3 ml Documented By: SANTOS Sumatriptan Succinate (Sumatriptan Succinate 6 Mg/0.5 Ml Vial) 6 mg SUBCUT DAILY PRN PRN Reason: migraine headache Topiramate (Topiramate 100 Mg Tablet) 200 mg PO BID [facility] Last Admin: 07/09/22 09:19 Dose: 200 mg Documented By: SANTOS Vancomycin HCl (Vancomycin Hcl 125 Mg Capsule) 250 mg PO Q6H [facility] Last Admin: 07/09/22 04:26 Dose: 250 mg Documented By: ROSE Labs CBC & Chem 7: 07/05/22 06:37 07/05/22 06:37 Assessment and Plan (1) Colitis due to Clostridioides difficile: Status: Acute (2) Leukocytosis: Status: Acute Plan 62yo F admitted 05/18/22 with colitis/Crohn's flare.? Flex sig showed perforation with abscess; taken to OR for ex-lap with colostomy after found to have extensive fecal soilage in peritoneum.? Severely septic, sent to ICU intubated.? Course since then complicated by multiple intra-abdominal abscesses causing fevers, with multiple drains placed by IR.? Treated with metronidazole + meropenem and given TPN.? Extubated 06/07/22, transitioned to tube feeds and then to oral diet.Now with C difficile colitis, severe.? Slowly improving 1. Severe C difficile colitis On by mouth vancomycin 250 mg q.i.d.day 9, s/p IV metronidazole x 7 days, WBC normalized, no fevers no abdominal bloating or cramps continue simethicone , and change Bentyl to as needed, advice activity as tolerated 2. Status post septic shock secondary to perforated viscus with fecal peritonitis/ Fungal Peritonitis - voriconazole () [will change to oral upon eventual discharge] - s/p ex-lap/colostomy - got 3 wk of meropenem , IV meropenem restarted on due to leukocytosis stopped on 07/07 - extubated 06/07/22, given TPN, transitioned to tube feeds, then to oral feeds - abscess drainage x3; latest IR-guided drainage on 06/22 with removal of 500 mL of purulent fluid now yemi drain with minimal drainage; Encourage out of bed to chair, incentive spirometry Encourage high-protein diet 3.LUE DVT(catheter-associated) proximal left brachial vein diagnosed on 06/27 - midline catheter removed, continue enoxaparin 1 mg/kg q12h day 12, will discuss duration of anticoagulation with Hematology 4.SABINE - resolved -follow renals/divalents 5.# acute respiratory failure - extubated in ICU 06/07/22 6.# recurrent toxic metabolic encephalopathy likely related to ICU delirium resolved 7 # sinus tachycardia no chest pain no palpitation on metoprolol 100 b.i.d.denies anxiety,check tsh ?VTE ppx: LMWH # dispo: will need rehab Patient requires continued hospitalization secondary to the need for placement. Quality Stroke Does the patient have a stroke diagnosis?: No VTE Prior VTE?: No VTE Risk Level:: Medical - moderate - high VTE Device Contraindication: N/A - Device Ordered VTE Drug Contraindication: N/A - Med Ordered
--- NOTE | 2022-07-09 18:33 | PC.NURSE ---
report received from overnight RN. Pt states she feels much better today. Pt encouraged to get OOB to chair today but she refused and said she would like to try when a Physical Therapist is available tomorrow morning instead. Pt c/o pain to abd frequentlywith good relief from PRN meds. data administrator per NOV. Assisted pt with bed bath and brushing teeth. at bedside. Pt constantly sustaining HR above 120s, notified no new orders. Drains and abdominal dressing intact, purewick in place. Call arteaga within reach, hourly rounding, bed alarm on, pt encouraged to call for assistance.
[2022-07-09] MEDS: ondansetron HCL 4 MG/2 ML VIAL IVPUSH (20:50)
[2022-07-09] MEDS: Gabapentin 300 MG CAPSULE PO (20:50)
[2022-07-09] MEDS: DULoxetine HCl 60 MG CAPSULE.DR PO (20:50)
[2022-07-10] MEDS: HYDROmorphone HCl 0.5 MG/0.5 ML SYRINGE IVPUSH ×5 (02:14→20:51)
[2022-07-10] MEDS: Voriconazole 200 MG in 0.9 % Sodium Chloride 100 ML 50 MG IV ×2 (02:14→14:09)
[2022-07-10 03:22] VITALS: BP 128/75; PULSE 120; RESP 18; TEMP 36.3; O2SAT 97
[2022-07-10] MEDS: vancomycin HCL 125 MG CAPSULE 250 MG PO ×4 (05:40→23:55)
[2022-07-10] MEDS: Enoxaparin Sodium 100 MG/ML SYRINGE 90 MG SUBCUT ×2 (05:40→16:06)
[2022-07-10 05:57] VITALS: BMI 37.2
[2022-07-10 07:02] LABS: Thyroid Stimulating Hormone 3.64 uIU/mL (0.32-4.0)
[2022-07-10 07:08] LABS: Anion Gap 13 (12-20); Blood Urea Nitrogen 8 mg/dL (9-16); Carbon Dioxide 25 mmol/L (22-29); Chloride 104 mmol/L (96-108); Creatinine Clr Calc Pharmacy 147.5; Estimated Glomerular Filt Rate > 60; Glucose Random 96 mg/dL (60-115); Potassium 4.3 mmol/L (3.3-5.1); Sodium 138 mmol/L (135-145)
[2022-07-10 07:34] VITALS: BP 134/76; PULSE 118; RESP 20; TEMP 36.3; O2SAT 93
[2022-07-10] MEDS: Topiramate 100 MG TABLET 200 MG PO ×2 (08:12→20:51)
[2022-07-10] MEDS: 0.9 % Sodium Chloride Flush 3 ML SYRINGE IVFLUSH ×2 (08:12→17:45)
[2022-07-10] MEDS: Heparin Sodium,Porcine Flush 50 UNITS, 0.9 % Sodium Chloride Flush 5 ML IVFLUSH ×3 (08:12→20:51)
[2022-07-10] MEDS: Simethicone 80 MG TAB.CHEW PO ×4 (08:12→20:51)
[2022-07-10] MEDS: Nystatin Powder 15 GM BOTTLE 1 APPL TOPICAL ×2 (08:15→20:52)
[2022-07-10 11:30] VITALS: BP 130/76; PULSE 127; RESP 20; TEMP 37; O2SAT 92
--- NOTE | 2022-07-10 11:49 | HO.PM.IMPN ---
Subjective Subjective Date of Service: 07/10/22 Interval History: Feeling better this morning persistent abdominal pain attempted out of bed to chair with PT but was unable to tolerate but had good balance sitting up at edge of bed, no other acute issues overnight tolerating diet taking protein shakes, no fevers no chills persistent sinus tachycardia denies chest pain or palpitations, no shortness of breath, no new rash. Review of Systems Review of Systems: Yes all other systems are reviewed and are negative Physical Exam Vital Signs: Vital Signs: Last Vital Signs Temp 98.6 F 07/10/22 11:30 Pulse 127 H 07/10/22 11:30 Resp 20 07/10/22 11:30 BP 130/76 07/10/22 11:30 Pulse Ox 92 07/10/22 11:30 O2 Del Method 07/10/22 11:30 O2 Flow Rate 1 07/06/22 07:14 FiO2 97 07/01/22 20:00 Oxygen Flow Rate 35 06/13/22 21:00 BMI result Body Mass Index 37.2 Const: Other: Gen:? Awake alert no distress Neck: supple, no JVD Lungs: clear to auscultation bilaterally Heart: regular, tachycardic, no murmurs Abd: soft, stoma with liquidy stool unchanged from yesterday, non-tender, distended, bowel sounds audible, abdominal wall edema,left sided drains with creamy drainage Ext:? Bilateral pitting edema Skin: warm/well-perfused Neuro: alert and oriented x3, no focal findings Psych: appropriate affectelevated Objective Data Active Medications Acetaminophen (Acetaminophen 325 Mg Tablet) 650 mg PO Q6H PRN PRN Reason: fever Last Admin: 07/07/22 12:43 Dose: 650 mg Documented By: MARIAN Heparin Sodium (Porcine) 50 (units/ Sodium Chloride 5 ml) 0 units IVFLUSH TID [facility] Last Admin: 07/10/22 08:12 Dose: 50 unit Documented By: OTIS Dicyclomine HCl (Dicyclomine Hcl 10 Mg Capsule) 20 mg PO TIDAC PRN PRN Reason: cramps Duloxetine HCl (Duloxetine Hcl 60 Mg Capsule.Dr) 60 mg PO BEDTIME [facility] Last Admin: 07/09/22 20:50 Dose: 60 mg Documented By: SIGRID Enoxaparin Sodium (Enoxaparin Sodium 100 Mg/Ml Syringe) 90 mg 1 mg/kg (90 mg) SUBCUT Q12H [facility] Last Admin: 07/10/22 05:40 Dose: 90 mg Documented By: SIGRID Gabapentin (Gabapentin 300 Mg Capsule) 300 mg PO BEDTIME [facility] Last Admin: 07/09/22 20:50 Dose: 300 mg Documented By: SIGRID Hydromorphone HCl (Hydromorphone Hcl 0.5 Mg/0.5 Ml Syringe) 0.5 mg IVPUSH Q4H PRN; Protocol PRN Reason: mild pain Last Admin: 07/10/22 10:30 Dose: 0.5 mg Documented By: OTIS Voriconazole 200 mg/ Sodium (Chloride) 100 mls @ 50 mls/hr IV Q12H [facility] Last Infusion: 07/10/22 04:17 Dose: 0 mls/hr Documented By: SIGRID Metoprolol Tartrate (Metoprolol Tartrate 100 Mg Tablet) 100 mg PO BID [facility]; Protocol Last Admin: 07/01/22 08:09 Dose: 100 mg Documented By: LAUREN Patient Own Med ( (Ajovy 1.5 Ml)) 1.5 ml SUBCUT Q30D [facility] Last Admin: 06/30/22 13:56 Dose: 1.5 ml Documented By: LAKESHIA Nystatin (Nystatin Powder 15 Gm Bottle) 1 appl TOPICAL BID [facility]; Protocol Last Admin: 07/10/22 08:15 Dose: 1 appl Documented By: OTIS Ondansetron HCl (Ondansetron Hcl 4 Mg/2 Ml Vial) 4 mg IVPUSH Q6H PRN PRN Reason: Nausea Last Admin: 07/09/22 20:50 Dose: 4 mg Documented By: SIGRID Pharmacy Consult (Consult Rx Perform Med Rec) 1 each MISCELLANE ONCE PRN PRN Reason: Consult order Simethicone (Simethicone 80 Mg Tab.Chew) 80 mg PO QIDWMHS [facility] Last Admin: 07/10/22 08:12 Dose: 80 mg Documented By: OTIS Sodium Chloride (0.9 % Sodium Chloride Flush 3 Ml Syringe) 3 ml IVFLUSH QSHIFT [facility] Last Admin: 07/10/22 08:12 Dose: 3 ml Documented By: OTIS Sumatriptan Succinate (Sumatriptan Succinate 6 Mg/0.5 Ml Vial) 6 mg SUBCUT DAILY PRN PRN Reason: migraine headache Topiramate (Topiramate 100 Mg Tablet) 200 mg PO BID [facility] Last Admin: 07/10/22 08:12 Dose: 200 mg Documented By: OTIS Vancomycin HCl (Vancomycin Hcl 125 Mg Capsule) 250 mg PO Q6H [facility] Last Admin: 07/10/22 10:30 Dose: 250 mg Documented By: OTIS Labs CBC & Chem 7: 07/05/22 06:37 07/10/22 05:58 Labs: Laboratory Results - last 24 hr 07/10/22 05:58 Anion Gap 13 Estim Creat Clear Calc 147.5 Estimated GFR > 60 Random Glucose 96 Calcium 8.0 L TSH 3.64 Microbiology Microbiology Results: Microbiology 06/02/22 Unknown Fungal Identification - Final Abscess Intra-abdominal Verónica dubliniensis 06/22/22 16:30 Gram Stain - Final Abdominal Fluid Routine Culture - Final Verónica albicans Anaerobic Culture - Final NO GROWTH AFTER 5 DAYS Assessment and Plan (1) Colitis due to Clostridioides difficile: Status: Acute (2) Leukocytosis: Status: Acute Plan 62yo F admitted 05/18/22 with colitis/Crohn's flare.? Flex sig showed perforation with abscess; taken to OR for ex-lap with colostomy after found to have extensive fecal soilage in peritoneum.? Severely septic, sent to ICU intubated.? Course since then complicated by multiple intra-abdominal abscesses causing fevers, with multiple drains placed by IR.? Treated with metronidazole + meropenem and given TPN.? Extubated 06/07/22, transitioned to tube feeds and then to oral diet.Now with C difficile colitis, severe.? Slowly improving 1. Severe C difficile colitis On by mouth vancomycin 250 mg q.i.d. day 06/23, s/p IV metronidazole x 7 days, WBC normalized, no fevers no abdominal bloating or cramps continue simethicone , and change Bentyl to as needed, advice activity as tolerated Tolerating diet no increase in ostomy output 2. Status post septic shock secondary to perforated viscus with fecal peritonitis/ Fungal Peritonitis - voriconazole () [will change to oral upon eventual discharge] - s/p ex-lap/colostomy - got 3 wk of meropenem , IV meropenem restarted on due to leukocytosis stopped on 07/07 - extubated 06/07/22, given TPN, transitioned to tube feeds, then to oral feeds - abscess drainage x3; latest IR-guided drainage on 06/22 with removal of 500 mL of purulent fluid now drains with minimal drainage; Encourage out of bed to chair, incentive spirometry, Encourage high-protein diet Case discussed with general surgery Dr. Dietz she recommend to keep the drains in, follow for recurrent fevers, worsening WBC then will need recurrent imaging studies 3.LUE DVT(catheter-associated) proximal left brachial vein diagnosed on 06/27 - midline catheter removed, continue enoxaparin 1 mg/kg q12h day 13, will discuss duration of anticoagulation with Hematology 4.SABINE - resolved -follow renals/divalents 5.# acute respiratory failure - extubated in ICU 06/07/22 6.# recurrent toxic metabolic encephalopathy likely related to ICU delirium resolved 7 # sinus tachycardia no chest pain, no palpitation on metoprolol 100 b.i.d.denies anxiety, tsh 3.64, patient denies anxiety continue telemonitor support provided. ?VTE ppx: LMWH # dispo: will need rehab Patient requires continued hospitalization secondary to the need for placement. Quality Stroke Does the patient have a stroke diagnosis?: No VTE Prior VTE?: No VTE Risk Level:: Medical - moderate - high VTE Device Contraindication: N/A - Device Ordered VTE Drug Contraindication: N/A - Med Ordered
--- NOTE | 2022-07-10 12:13 | MHC.CLN ---
F/U PO INTAKE VARIABLE DIET RX: REGULAR-APPROPRIATE PT ACCEPTING AND DRINKING ENSURE TID PROVIDES 1050KCALS, 60G PROTEIN NOTED ENSURE STRAWBERRY AT BEDSIDE AND PT STATED SHE DRANK 100% FOOD PREFERENCES UPDATED AND SENT TO [facility]-PT CONTINUES TO PREFER SMALL PORTIONS WITH ME[facility] CONTINUE TO MONITOR PO INTAKE CLOSELY
[2022-07-10] MEDS: SUMAtriptan succinate 6 MG/0.5 ML VIAL SUBCUT (12:37)
--- NOTE | 2022-07-10 13:02 | P.PNGS_ITS ---
Subjective Subjective Date of Service: 07/10/22 Interval history: States she ate well for breakfast Subjectively feels better Stoma functioning Physical Exam Vital Signs: Vital Signs: Last Vital Signs Temp 98.6 F 07/10/22 11:30 Pulse 127 H 07/10/22 11:30 Resp 20 07/10/22 11:30 BP 130/76 07/10/22 11:30 Pulse Ox 92 07/10/22 11:30 O2 Del Method 07/10/22 11:30 O2 Flow Rate 1 07/06/22 07:14 FiO2 97 07/01/22 20:00 Oxygen Flow Rate 35 06/13/22 21:00 BMI result Body Mass Index 37.2 Const: General: comfortable and no acute distress Resp: Other: Mild shortness of breath Cardio: Rate: tachycardic GI: Other: Stoma functioning Palpation (GI): Soft to palpation, not firm and no guarding Objective Data Active Medications Acetaminophen (Acetaminophen 325 Mg Tablet) 650 mg PO Q6H PRN PRN Reason: fever Last Admin: 07/07/22 12:43 Dose: 650 mg Documented By: MARIAN Heparin Sodium (Porcine) 50 (units/ Sodium Chloride 5 ml) 0 units IVFLUSH TID [facility] Last Admin: 07/10/22 08:12 Dose: 50 unit Documented By: OTIS Dicyclomine HCl (Dicyclomine Hcl 10 Mg Capsule) 20 mg PO TIDAC PRN PRN Reason: cramps Duloxetine HCl (Duloxetine Hcl 60 Mg Capsule.Dr) 60 mg PO BEDTIME [facility] Last Admin: 07/09/22 20:50 Dose: 60 mg Documented By: SIGRID Enoxaparin Sodium (Enoxaparin Sodium 100 Mg/Ml Syringe) 90 mg 1 mg/kg (90 mg) SUBCUT Q12H [facility] Last Admin: 07/10/22 05:40 Dose: 90 mg Documented By: SIGRID Gabapentin (Gabapentin 300 Mg Capsule) 300 mg PO BEDTIME [facility] Last Admin: 07/09/22 20:50 Dose: 300 mg Documented By: SIGRID Hydromorphone HCl (Hydromorphone Hcl 0.5 Mg/0.5 Ml Syringe) 0.5 mg IVPUSH Q4H PRN; Protocol PRN Reason: mild pain Last Admin: 07/10/22 10:30 Dose: 0.5 mg Documented By: OTIS Voriconazole 200 mg/ Sodium (Chloride) 100 mls @ 50 mls/hr IV Q12H [facility] Last Infusion: 07/10/22 04:17 Dose: 0 mls/hr Documented By: SIGRID Metoprolol Tartrate (Metoprolol Tartrate 100 Mg Tablet) 100 mg PO BID [facility]; Protocol Last Admin: 07/01/22 08:09 Dose: 100 mg Documented By: LAUREN Patient Own Med ( (Ajovy 1.5 Ml)) 1.5 ml SUBCUT Q30D [facility] Last Admin: 06/30/22 13:56 Dose: 1.5 ml Documented By: LAKESHIA Nystatin (Nystatin Powder 15 Gm Bottle) 1 appl TOPICAL BID [facility]; Protocol Last Admin: 07/10/22 08:15 Dose: 1 appl Documented By: OITS Ondansetron HCl (Ondansetron Hcl 4 Mg/2 Ml Vial) 4 mg IVPUSH Q6H PRN PRN Reason: Nausea Last Admin: 07/09/22 20:50 Dose: 4 mg Documented By: SIGRID Pharmacy Consult (Consult Rx Perform Med Rec) 1 each MISCELLANE ONCE PRN PRN Reason: Consult order Simethicone (Simethicone 80 Mg Tab.Chew) 80 mg PO QIDWMHS [facility] Last Admin: 07/10/22 12:44 Dose: 80 mg Documented By: FLO Sodium Chloride (0.9 % Sodium Chloride Flush 3 Ml Syringe) 3 ml IVFLUSH QSHIFT [facility] Last Admin: 07/10/22 08:12 Dose: 3 ml Documented By: OTIS Sumatriptan Succinate (Sumatriptan Succinate 6 Mg/0.5 Ml Vial) 6 mg SUBCUT DAILY PRN PRN Reason: migraine headache Last Admin: 07/10/22 12:37 Dose: 6 mg Documented By: FLO Topiramate (Topiramate 100 Mg Tablet) 200 mg PO BID [facility] Last Admin: 07/10/22 08:12 Dose: 200 mg Documented By: OTIS Vancomycin HCl (Vancomycin Hcl 125 Mg Capsule) 250 mg PO Q6H [facility] Last Admin: 07/10/22 10:30 Dose: 250 mg Documented By: OTIS Labs CBC & Chem 7: 07/05/22 06:37 07/10/22 05:58 Labs: Laboratory Results - last 24 hr 07/10/22 05:58 Anion Gap 13 Estim Creat Clear Calc 147.5 Estimated GFR > 60 Random Glucose 96 Calcium 8.0 L TSH 3.64 Microbiology Microbiology Results: Microbiology 06/02/22 Unknown Fungal Identification - Final Abscess Intra-abdominal Verónica dubliniensis 06/22/22 16:30 Gram Stain - Final Abdominal Fluid Routine Culture - Final Verónica albicans Anaerobic Culture - Final NO GROWTH AFTER 5 DAYS Procedures Date of Service Date of Service: 07/10/22 Arterial Line Size (Gauge): 16 Progress Note: A&P Assessment and plan (1) Status post colostomy: Status: Acute Assessment and Plan: Continues to improve Oral intake better Deconditioned - needs to get out of bed Plan to DC one more drain tomorrow Time Spent With Patient Time: Total time spent is greater than 50% in coordination of care (as documented) at patient's floor/unit and/or counseling patient: Quality Stroke Does the patient have a stroke diagnosis?: No VTE Prior VTE?: No VTE Risk Level:: Medical - moderate - high VTE Device Contraindication: N/A - Device Ordered VTE Drug Contraindication: N/A - Med Ordered
[2022-07-10] MEDS: ondansetron HCL 4 MG/2 ML VIAL IVPUSH ×2 (14:16→20:51)
--- NOTE | 2022-07-10 14:30 | MHC.CM.PN ---
Per ROUNDS discussion, Patient is not yet medically cleared for dc (IV Dilaudid today, IV Voriconazole, S/P Colostomy, one more drain to be dc'd tomorrow/per Surgery PN); PT recommends STR and CM will continue to follow.
[2022-07-10 15:13] VITALS: BP 139/77; PULSE 130; RESP 19; TEMP 36.7
--- NOTE | 2022-07-10 17:11 | PC.NURSE ---
Patient c/o of 8/10 abdominal pain throughout the day, controlled with IV dilaudid. Repositioned throughout shift, NOHEMI drain minial output, drain to gravity draining 50ccs purulent drainage. Sinus tach in the 120s-130s, MD Hurtado aware. Warm bilateral extremities, +3 pitting edema.
[2022-07-10 18:56] VITALS: BP 148/68; PULSE 130; RESP 18; TEMP 37.2; O2SAT 93
[2022-07-10] MEDS: DULoxetine HCl 60 MG CAPSULE.DR PO (20:51)
[2022-07-10] MEDS: Gabapentin 300 MG CAPSULE PO (20:51)
[2022-07-10 21:20] LABS: Hematocrit 29.2 % (37.0-47.0)
--- NOTE | 2022-07-10 23:30 | PC.NURSE ---
At approximately 2000 TW entered pt's room after being requested to empty her colostomy bag. The bag was full upon assessment, which resulted in it bursting on the patient, saturating her surgical dressing located on her abdomen. After cleaning the patient, I noticed some bleeding to the stoma and had Dr. Dixon come assess pt as well. ordered labs for hct and hgb, and requested I reached out to the surgeon, Dr. Marion. I placed a new colostomy device on the patient and assessed the surgical incision - the surrounding skin was intact, the incision was healing well and had scant serous drainage. I placed a new abdominal pad on the pt and secured. I relayed this information to Dr. Marion who was satisified with all steps taken. Pt. does not c/o pain at the stoma site or the incision site.
[2022-07-11] VITALS (11 sets, daily range): BP systolic 122–148; BP diastolic 66–89; PULSE 114–130; RESP 16–20; TEMP 36.4–37.4; O2SAT 91–94
[2022-07-11] MEDS: HYDROmorphone HCl 0.5 MG/0.5 ML SYRINGE IVPUSH ×5 (01:45→21:14)
[2022-07-11] MEDS: Enoxaparin Sodium 100 MG/ML SYRINGE 90 MG SUBCUT ×2 (06:00→16:22)
[2022-07-11] MEDS: vancomycin HCL 125 MG CAPSULE 250 MG PO ×3 (06:00→16:23)
[2022-07-11] MEDS: 0.9 % Sodium Chloride Flush 3 ML SYRINGE IVFLUSH ×3 (09:38→16:22)
[2022-07-11] MEDS: Simethicone 80 MG TAB.CHEW PO ×4 (09:39→21:12)
[2022-07-11] MEDS: Heparin Sodium,Porcine Flush 50 UNITS, 0.9 % Sodium Chloride Flush 5 ML IVFLUSH ×3 (09:39→21:14)
[2022-07-11] MEDS: Nystatin Powder 15 GM BOTTLE 1 APPL TOPICAL ×2 (09:39→21:22)
[2022-07-11] MEDS: Topiramate 100 MG TABLET 200 MG PO ×2 (09:39→21:12)
--- NOTE | 2022-07-11 11:16 | PM.PNGS ---
Subjective Subjective Date of Service: 07/11/22 Interval history: says she is okay had a good breakfast finally bed to recliner today stoma functioning well Physical Exam Vital Signs: Vital Signs: Last Vital Signs Temp 97.6 F 07/11/22 08:00 Pulse 114 H 07/11/22 08:00 Resp 18 07/11/22 10:17 BP 126/69 07/11/22 08:00 Pulse Ox 92 07/11/22 08:00 O2 Del Method 07/11/22 08:00 O2 Flow Rate 1 07/06/22 07:14 FiO2 93 07/10/22 15:13 Oxygen Flow Rate 35 06/13/22 21:00 BMI result Body Mass Index 37.2 Const: General: comfortable Resp: Other: a little short of breath as baseline Cardio: Rate: tachycardic GI: Other: stoma with good output, [address], the last drain on the left side with some scanty purulent output Palpation (GI): Soft to palpation, not firm and no guarding Objective Data Active Medications Acetaminophen (Acetaminophen 325 Mg Tablet) 650 mg PO Q6H PRN PRN Reason: fever Last Admin: 07/07/22 12:43 Dose: 650 mg Documented By: MARIAN Heparin Sodium (Porcine) 50 (units/ Sodium Chloride 5 ml) 0 units IVFLUSH TID [facility] Last Admin: 07/11/22 09:39 Dose: 50 unit Documented By: SANTOS Dicyclomine HCl (Dicyclomine Hcl 10 Mg Capsule) 20 mg PO TIDAC PRN PRN Reason: cramps Duloxetine HCl (Duloxetine Hcl 60 Mg Capsule.) 60 mg PO BEDTIME [facility] Last Admin: 07/10/22 20:51 Dose: 60 mg Documented By: SIGRID Enoxaparin Sodium (Enoxaparin Sodium 100 Mg/Ml Syringe) 90 mg 1 mg/kg (90 mg) SUBCUT Q12H [facility] Last Admin: 07/11/22 06:00 Dose: 90 mg Documented By: SIGRID Gabapentin (Gabapentin 300 Mg Capsule) 300 mg PO BEDTIME [facility] Last Admin: 07/10/22 20:51 Dose: 300 mg Documented By: SIGRID Hydromorphone HCl (Hydromorphone Hcl 0.5 Mg/0.5 Ml Syringe) 0.5 mg IVPUSH Q4H PRN; Protocol PRN Reason: mild pain Last Admin: 07/11/22 10:17 Dose: 0.5 mg Documented By: SANTOS Voriconazole 200 mg/ Sodium (Chloride) 100 mls @ 50 mls/hr IV Q12H [facility] Last Infusion: 07/11/22 04:56 Dose: 0 mls/hr Documented By: SIGRID Metoprolol Tartrate (Metoprolol Tartrate 100 Mg Tablet) 100 mg PO BID [facility]; Protocol Last Admin: 07/01/22 08:09 Dose: 100 mg Documented By: LAUREN Patient Own Med ( (Ajovy 1.5 Ml)) 1.5 ml SUBCUT Q30D [facility] Last Admin: 06/30/22 13:56 Dose: 1.5 ml Documented By: LAKESHIA Nystatin (Nystatin Powder 15 Gm Bottle) 1 appl TOPICAL BID [facility]; Protocol Last Admin: 07/11/22 09:39 Dose: 1 appl Documented By: SANTOS Ondansetron HCl (Ondansetron Hcl 4 Mg/2 Ml Vial) 4 mg IVPUSH Q6H PRN PRN Reason: Nausea Last Admin: 07/10/22 20:51 Dose: 4 mg Documented By: SIGRID Pharmacy Consult (Consult Rx Perform Med Rec) 1 each MISCELLANE ONCE PRN PRN Reason: Consult order Simethicone (Simethicone 80 Mg Tab.Chew) 80 mg PO QIDWMHS [facility] Last Admin: 07/11/22 09:39 Dose: 80 mg Documented By: SANTOS Sodium Chloride (0.9 % Sodium Chloride Flush 3 Ml Syringe) 3 ml IVFLUSH QSHIFT [facility] Last Admin: 07/11/22 09:38 Dose: 3 ml Documented By: SANTOS Sumatriptan Succinate (Sumatriptan Succinate 6 Mg/0.5 Ml Vial) 6 mg SUBCUT DAILY PRN PRN Reason: migraine headache Last Admin: 07/10/22 12:37 Dose: 6 mg Documented By: FLO Topiramate (Topiramate 100 Mg Tablet) 200 mg PO BID [facility] Last Admin: 07/11/22 09:39 Dose: 200 mg Documented By: SANTOS Vancomycin HCl (Vancomycin Hcl 125 Mg Capsule) 250 mg PO Q6H [facility] Last Admin: 07/11/22 10:20 Dose: 250 mg Documented By: SANTOS Labs CBC & Chem 7: 07/10/22 20:57 07/10/22 05:58 Procedures Date of Service Date of Service: 07/11/22 Arterial Line Size (Gauge): 16 Progress Note: A&P Assessment and plan (1) Status post colostomy: Status: Acute Assessment and Plan: had a good breakfast continue to increase physical activity - patient markedly deconditioned I removed the pigtail drain from the left lower back - tip intact 1 more drain left continue to push for p.o. intake physical therapy continues to improve Time Spent With Patient Time: Total time spent is greater than 50% in coordination of care (as documented) at patient's floor/unit and/or counseling patient: Quality Stroke Does the patient have a stroke diagnosis?: No VTE Prior VTE?: No VTE Risk Level:: Medical - moderate - high VTE Device Contraindication: N/A - Device Ordered VTE Drug Contraindication: N/A - Med Ordered
[2022-07-11] MEDS: Voriconazole 200 MG in 0.9 % Sodium Chloride 100 ML 50 MG IV ×2 (12:44)
[2022-07-11] MEDS: HYDROmorphone HCl 1 MG/ML SYRINGE 0.75 MG IVPUSH (13:09)
--- NOTE | 2022-07-11 14:38 | HO.PM.IMPN ---
Subjective Subjective Date of Service: 07/11/22 Interval History: no fever, got out of bed this morning, in good spirits pain controlled Review of Systems Review of Systems: Yes all other systems are reviewed and are negative Physical Exam Vital Signs: Vital Signs: Last Vital Signs Temp 98.1 F 07/11/22 11:40 Pulse 125 H 07/11/22 11:40 Resp 20 07/11/22 13:09 BP 124/66 07/11/22 11:40 Pulse Ox 92 07/11/22 11:40 O2 Del Method 07/11/22 11:40 O2 Flow Rate 1 07/06/22 07:14 FiO2 93 07/10/22 15:13 Oxygen Flow Rate 35 06/13/22 21:00 BMI result Body Mass Index 37.2 Gen: in no acute distress HEENT: sclera anicteric, moist mucus membranes Neck: supple Lungs: clear to auscultation bilaterally Heart: regular, tachycardic, no murmurs Abd: soft, stoma with liquid stool output, [address] [one with scant purulent liquid] Ext: LUE PICC in place Skin: warm/well-perfused Neuro: alert and oriented x3, no focal findings Psych: appropriate affect Objective Data Active Medications Acetaminophen (Acetaminophen 325 Mg Tablet) 650 mg PO Q6H PRN PRN Reason: fever Last Admin: 07/07/22 12:43 Dose: 650 mg Documented By: MARIAN Heparin Sodium (Porcine) 50 (units/ Sodium Chloride 5 ml) 0 units IVFLUSH TID [facility] Last Admin: 07/11/22 09:39 Dose: 50 unit Documented By: SANTOS Dicyclomine HCl (Dicyclomine Hcl 10 Mg Capsule) 20 mg PO TIDAC PRN PRN Reason: cramps Duloxetine HCl (Duloxetine Hcl 60 Mg Capsule.) 60 mg PO BEDTIME [facility] Last Admin: 07/10/22 20:51 Dose: 60 mg Documented By: SIGRID Enoxaparin Sodium (Enoxaparin Sodium 100 Mg/Ml Syringe) 90 mg 1 mg/kg (90 mg) SUBCUT Q12H [facility] Last Admin: 07/11/22 06:00 Dose: 90 mg Documented By: SIGRID Gabapentin (Gabapentin 300 Mg Capsule) 300 mg PO BEDTIME [facility] Last Admin: 07/10/22 20:51 Dose: 300 mg Documented By: SIGRID Hydromorphone HCl (Hydromorphone Hcl 0.5 Mg/0.5 Ml Syringe) 0.5 mg IVPUSH Q4H PRN; Protocol PRN Reason: mild pain Last Admin: 07/11/22 10:17 Dose: 0.5 mg Documented By: SANTOS Voriconazole 200 mg/ Sodium (Chloride) 100 mls @ 50 mls/hr IV Q12H [facility] Last Admin: 07/11/22 12:44 Dose: 50 mls/hr Documented By: SANTOS Metoprolol Tartrate (Metoprolol Tartrate 100 Mg Tablet) 100 mg PO BID [facility]; Protocol Last Admin: 07/01/22 08:09 Dose: 100 mg Documented By: LAUREN Patient Own Med ( (Ajovy 1.5 Ml)) 1.5 ml SUBCUT Q30D [facility] Last Admin: 06/30/22 13:56 Dose: 1.5 ml Documented By: LAKESHIA Nystatin (Nystatin Powder 15 Gm Bottle) 1 appl TOPICAL BID [facility]; Protocol Last Admin: 07/11/22 09:39 Dose: 1 appl Documented By: SANTOS Ondansetron HCl (Ondansetron Hcl 4 Mg/2 Ml Vial) 4 mg IVPUSH Q6H PRN PRN Reason: Nausea Last Admin: 07/10/22 20:51 Dose: 4 mg Documented By: SIGRID Pharmacy Consult (Consult Rx Perform Med Rec) 1 each MISCELLANE ONCE PRN PRN Reason: Consult order Simethicone (Simethicone 80 Mg Tab.Chew) 80 mg PO QIDWMHS [facility] Last Admin: 07/11/22 12:44 Dose: 80 mg Documented By: SANTOS Sodium Chloride (0.9 % Sodium Chloride Flush 3 Ml Syringe) 3 ml IVFLUSH QSHIFT [facility] Last Admin: 07/11/22 09:38 Dose: 3 ml Documented By: SANTOS Sumatriptan Succinate (Sumatriptan Succinate 6 Mg/0.5 Ml Vial) 6 mg SUBCUT DAILY PRN PRN Reason: migraine headache Last Admin: 07/10/22 12:37 Dose: 6 mg Documented By: FLO Topiramate (Topiramate 100 Mg Tablet) 200 mg PO BID [facility] Last Admin: 07/11/22 09:39 Dose: 200 mg Documented By: SANTOS Vancomycin HCl (Vancomycin Hcl 125 Mg Capsule) 250 mg PO Q6H [facility] Last Admin: 07/11/22 10:20 Dose: 250 mg Documented By: SANTOS Labs CBC & Chem 7: 07/10/22 20:57 07/10/22 05:58 Assessment and Plan (1) Colitis due to Clostridioides difficile: Status: Acute (2) Leukocytosis: Status: Acute Plan d#55 62yo F admitted 05/18/22 with colitis/Crohn's flare.? Flex sig showed perforation with abscess; taken to OR for ex-lap with colostomy after found to have extensive fecal soilage in peritoneum.? Severely septic, sent to ICU intubated.? Course since then complicated by multiple intra-abdominal abscesses causing fevers, with multiple drains placed by IR.? Treated with metronidazole + meropenem and given TPN.? Extubated 06/07/22, transitioned to tube feeds and then to oral diet.Now with C difficile colitis, severe.? Slowly improving # Severe C difficile colitis - PO vancomycin 250 mg qid day 07/24, s/p IV metronidazole x 7 days, WBC normalized, no fevers - no abdominal bloating or cramps; continue simethicone and prn dicyclomine - tolerating diet, stoma functioning normal # status-post septic shock secondary to perforated viscus with fecal peritonitis/ Fungal Peritonitis - voriconazole () [will change to oral upon eventual discharge] - s/p ex-lap/colostomy - got 3 wk of meropenem , IV meropenem restarted on due to leukocytosis stopped on 07/07 - extubated 06/07/22, given TPN, transitioned to tube feeds, then to oral feeds - abscess drainage x3; latest IR-guided drainage on 06/22 with removal of 500 mL of purulent fluid now drains with minimal drainage- Surgery plans removing 1 drain today - encourage OOB to chair, IS, protein supplementation # LUE DVT(catheter-associated) proximal left brachial vein diagnosed on 06/27 - midline catheter removed, continue enoxaparin 1 mg/kg q12h day 14, discuss duration of anticoagulation with Hematology # SABINE - resolved # acute respiratory failure - extubated in ICU 06/07/22 # recurrent toxic metabolic encephalopathy - likely related to ICU delirium, resolved # sinus tachycardia - on metoprolol, continue to monitor # VTE ppx: LMWH # dispo: plan AIR In my clinical judgment, the patient requires continued inpatient hospitalization for the following reasons: IV antifungal, IR drain Quality Stroke Does the patient have a stroke diagnosis?: No VTE Prior VTE?: No VTE Risk Level:: Medical - moderate - high VTE Device Contraindication: N/A - Device Ordered VTE Drug Contraindication: N/A - Med Ordered
--- NOTE | 2022-07-11 15:54 | PM.GIPN ---
Subjective Subjective Date of Service: 07/11/22 Interval History: feels good up to chair from bed Critical Care Time (minutes): 0 Physical Exam Vital Signs: Vital Signs: Last Vital Signs Temp 98.0 F 07/11/22 15:43 Pulse 126 H 07/11/22 15:43 Resp 18 07/11/22 15:43 BP 148/82 H 07/11/22 15:43 Pulse Ox 92 07/11/22 15:43 O2 Del Method 07/11/22 15:43 O2 Flow Rate 1 07/06/22 07:14 FiO2 93 07/10/22 15:13 Oxygen Flow Rate 35 06/13/22 21:00 BMI result Body Mass Index 37.2 Const: General: no acute distress GI: Other: abdomen is soft and nontender Objective Data Labs CBC & Chem 7: 07/10/22 20:57 07/10/22 05:58 Labs: Laboratory Results - last 24 hr 07/10/22 20:57 Hgb 9.0 L Hct 29.2 L Procedures Date of Service Date of Service: 07/11/22 Arterial Line Size (Gauge): 16 Progress Note: A&P Assessment and plan (1) Perforated viscus: Status: Acute Assessment and Plan: slow improvement single drain remains continue pt Time Spent With Patient Time: Total time spent is greater than 50% in coordination of care (as documented) at patient's floor/unit and/or counseling patient: Quality Stroke Does the patient have a stroke diagnosis?: No VTE Prior VTE?: No VTE Risk Level:: Medical - moderate - high VTE Device Contraindication: N/A - Device Ordered VTE Drug Contraindication: N/A - Med Ordered
[2022-07-11] MEDS: SUMAtriptan succinate 6 MG/0.5 ML VIAL SUBCUT (16:21)
[2022-07-11] MEDS: ondansetron HCL 4 MG/2 ML VIAL IVPUSH (17:07)
[2022-07-11] MEDS: Dicyclomine HCl 10 MG CAPSULE 20 MG PO (17:09)
--- NOTE | 2022-07-11 17:19 | PC.NURSE ---
Addendum entered by Shabana Hunter RN 07/11/22 18:44: hospitalist and surgeon updated on pt condition, verbal order from Dr Hagan to have pt remain NPO tonight d/t pain in abd worsening. Pt updated and verbalized understanding. Call [facility] within reach, safety precautions taken. Contact precautions remain in place. Original Note: report received from overnight RN, doctor of medicine per NOV. NOHEMI drain removed by MD this morning. Pt OOB to chair today with PT, c/o discomfort to wound on buttocks in chair and some tingling in foot, pulse present. Tingling sensation went away when pt got back to bed. 1720 pt call with increase in pain c/o 9/10 sharp pain to her abd. PRN medication given per NOV. Heat pack applied with no relief. Ice pack applied with little relief as well. Stool is darker in color, possible blood noted. MD notified of pt condition, no new orders at this time. Pt encouraged to call if symptoms worsen, call [facility] within reach, safety precautions taken, hourly rounding.
[2022-07-11] MEDS: Gabapentin 300 MG CAPSULE PO (21:12)
[2022-07-11] MEDS: DULoxetine HCl 60 MG CAPSULE.DR PO (21:12)
[2022-07-12] VITALS (13 sets, daily range): BP systolic 121–138; BP diastolic 69–83; PULSE 76–134; RESP 18–20; TEMP 36–37.3; O2SAT 92–94; BMI 35.1
[2022-07-12] MEDS: vancomycin HCL 125 MG CAPSULE 250 MG PO ×3 (00:24→10:38)
[2022-07-12] MEDS: Voriconazole 200 MG in 0.9 % Sodium Chloride 100 ML 50 MG IV ×2 (00:25→12:30)
[2022-07-12] MEDS: 0.9 % Sodium Chloride Flush 3 ML SYRINGE IVFLUSH ×2 (00:25→08:10)
[2022-07-12] MEDS: Enoxaparin Sodium 100 MG/ML SYRINGE 90 MG SUBCUT ×2 (04:10→16:02)
[2022-07-12] MEDS: HYDROmorphone HCl 0.5 MG/0.5 ML SYRINGE IVPUSH ×3 (05:08→16:10)
[2022-07-12 06:52] LABS: Hematocrit 24.7 % (37.0-47.0); Hemoglobin 7.9 g/dl (12.0-16.0); Mean Corpuscular Hemoglobin 29.4 pg (27.0-33.0); Mean Corpuscular Volume 91.8 fL (80.0-98.0); Mean Platelet Volume 9.4 fL (9.4-12.3); Platelet Count 428 X10*3/uL (160-400); Red Blood Count 2.69 X10*6/uL (4.20-5.50); Red Cell Distribution Width 18.4 % (11.0-16.0); White Blood Count 12.8 X10*3/uL (4.8-10.8)
[2022-07-12 07:17] LABS: Anion Gap 15 (12-20); Blood Urea Nitrogen 6 mg/dL (9-16); Carbon Dioxide 22 mmol/L (22-29); Chloride 104 mmol/L (96-108); Creatinine Clr Calc Pharmacy 149.7; Estimated Glomerular Filt Rate > 60; Glucose Random 100 mg/dL (60-115); Magnesium 2.1 mg/dL (1.6-2.6); Phosphorus 4.3 mg/dL (2.7-4.5); Potassium 3.8 mmol/L (3.3-5.1); Sodium 137 mmol/L (135-145)
--- NOTE | 2022-07-12 07:58 | P.PNGS_ITS ---
Subjective Subjective Date of Service: 07/13/22 Interval history: c/o abdl pain since last night, mostly upper abd stoma output has decreased also, some blood in stoma appliance Physical Exam Vital Signs: Vital Signs: Last Vital Signs Temp 97.0 F 07/12/22 07:47 Pulse 128 H 07/12/22 07:47 Resp 18 07/12/22 07:47 BP 138/83 07/12/22 07:47 Pulse Ox 92 07/12/22 07:47 O2 Del Method 07/12/22 07:47 O2 Flow Rate 1 07/06/22 07:14 FiO2 93 07/10/22 15:13 Oxygen Flow Rate 35 06/13/22 21:00 BMI result Body Mass Index 35.1 Const: General: no acute distress Resp: Other: mild SOB Cardio: Rate: tachycardic GI: Other: distended, soft, stoma with less output, some blood tinged liquid, tender mostly in the upper abdomen Palpation (GI): no guarding and No Rebound tenderness present Objective Data Active Medications Acetaminophen (Acetaminophen 325 Mg Tablet) 650 mg PO Q6H PRN PRN Reason: fever Last Admin: 07/07/22 12:43 Dose: 650 mg Documented By: MARIAN Heparin Sodium (Porcine) 50 (units/ Sodium Chloride 5 ml) 0 units IVFLUSH TID [facility] Last Admin: 07/11/22 21:14 Dose: 50 unit Documented By: BRISEYDA Dicyclomine HCl (Dicyclomine Hcl 10 Mg Capsule) 20 mg PO TIDAC PRN PRN Reason: cramps Last Admin: 07/11/22 17:09 Dose: 20 mg Documented By: SANTOS Duloxetine HCl (Duloxetine Hcl 60 Mg Capsule.Dr) 60 mg PO BEDTIME [facility] Last Admin: 07/11/22 21:12 Dose: 60 mg Documented By: BRISEYDA Enoxaparin Sodium (Enoxaparin Sodium 100 Mg/Ml Syringe) 90 mg 1 mg/kg (90 mg) SUBCUT Q12H [facility] Last Admin: 07/12/22 04:10 Dose: 90 mg Documented By: ISAIAH Gabapentin (Gabapentin 300 Mg Capsule) 300 mg PO BEDTIME [facility] Last Admin: 07/11/22 21:12 Dose: 300 mg Documented By: BRISEYDA Hydromorphone HCl (Hydromorphone Hcl 0.5 Mg/0.5 Ml Syringe) 0.5 mg IVPUSH Q4H PRN; Protocol PRN Reason: mild pain Last Admin: 07/12/22 05:08 Dose: 0.5 mg Documented By: ISAIAH Hydromorphone HCl (Hydromorphone Hcl 1 Mg/Ml Syringe) 0.75 mg IVPUSH ONCE ONE; Protocol Stop: 07/12/22 07:58 Voriconazole 200 mg/ Sodium (Chloride) 100 mls @ 50 mls/hr IV Q12H [facility] Last Infusion: 07/12/22 02:40 Dose: 0 mls/hr Documented By: JAYASHREE Lactated Ringer's (Lr) 1,000 mls @ 125 mls/hr IVCONT .Q8H [facility] Stop: 07/12/22 23:44 Metoprolol Tartrate (Metoprolol Tartrate 100 Mg Tablet) 100 mg PO BID [facility]; Protocol Last Admin: 07/01/22 08:09 Dose: 100 mg Documented By: LAUREN Patient Own Med ( (Ajovy 1.5 Ml)) 1.5 ml SUBCUT Q30D [facility] Last Admin: 06/30/22 13:56 Dose: 1.5 ml Documented By: LAKESHIA Nystatin (Nystatin Powder 15 Gm Bottle) 1 appl TOPICAL BID [facility]; Protocol Last Admin: 07/11/22 21:22 Dose: 1 appl Documented By: BRISEYDA Ondansetron HCl (Ondansetron Hcl 4 Mg/2 Ml Vial) 4 mg IVPUSH Q6H PRN PRN Reason: Nausea Last Admin: 07/11/22 17:07 Dose: 4 mg Documented By: SANTOS Pharmacy Consult (Consult Rx Perform Med Rec) 1 each MISCELLANE ONCE PRN PRN Reason: Consult order Simethicone (Simethicone 80 Mg Tab.Chew) 80 mg PO QIDWMHS [facility] Last Admin: 07/11/22 21:12 Dose: 80 mg Documented By: BRISEYDA Sodium Chloride (0.9 % Sodium Chloride Flush 3 Ml Syringe) 3 ml IVFLUSH QSHIFT [facility] Last Admin: 07/12/22 00:25 Dose: 3 ml Documented By: JONATHAN Sumatriptan Succinate (Sumatriptan Succinate 6 Mg/0.5 Ml Vial) 6 mg SUBCUT DAILY PRN PRN Reason: migraine headache Last Admin: 07/11/22 16:21 Dose: 6 mg Documented By: FOGARTB Topiramate (Topiramate 100 Mg Tablet) 200 mg PO BID [facility] Last Admin: 07/11/22 21:12 Dose: 200 mg Documented By: DIAZDEM Vancomycin HCl (Vancomycin Hcl 125 Mg Capsule) 250 mg PO Q6H [facility] Last Admin: 07/12/22 04:10 Dose: 250 mg Documented By: ISAIAH Labs CBC & Chem 7: 07/13/22 08:31 07/13/22 08:31 Labs: Laboratory Results - last 24 hr 07/12/22 07/12/22 06:28 06:28 MCV 91.8 MCH 29.4 MCHC 32.0 RDW 18.4 H Plt Count 428 H MPV 9.4 Absolute Nucleated RBC 0.000 Nucleated RBC % (auto) 0.0 Anion Gap 15 Estim Creat Clear Calc 149.7 Estimated GFR > 60 Random Glucose 100 Calcium 8.0 L Phosphorus 4.3 Magnesium 2.1 C-Reactive Protein 12.50 H Procedures Date of Service Date of Service: 07/12/22 Arterial Line Size (Gauge): 16 Progress Note: A&P Assessment and plan (1) Status post colostomy: Status: Acute Assessment and Plan: has abdl pain CT ordered abd distended although soft; poss SBO NPO for now HG low - transfuse Time Spent With Patient Time: Total time spent is greater than 50% in coordination of care (as documented) at patient's floor/unit and/or counseling patient: Quality Stroke Does the patient have a stroke diagnosis?: No VTE Prior VTE?: No VTE Risk Level:: Medical - moderate - high VTE Device Contraindication: N/A - Device Ordered VTE Drug Contraindication: N/A - Med Ordered
[2022-07-12] MEDS: Topiramate 100 MG TABLET 200 MG PO ×2 (08:09→20:54)
[2022-07-12] MEDS: Simethicone 80 MG TAB.CHEW PO ×4 (08:10→20:55)
[2022-07-12] MEDS: Heparin Sodium,Porcine Flush 50 UNITS, 0.9 % Sodium Chloride Flush 5 ML IVFLUSH (08:10)
[2022-07-12] MEDS: HYDROmorphone HCl 1 MG/ML SYRINGE 0.75 MG IVPUSH ×2 (08:11→18:57)
[2022-07-12] MEDS: Nystatin Powder 15 GM BOTTLE 1 APPL TOPICAL (08:20)
[2022-07-12] MEDS: Lactated Ringers 1,000 ML 125 ML IVCONT ×2 (09:16→16:02)
--- NOTE | 2022-07-12 09:40 | HO.PM.IMPN ---
Subjective Subjective Date of Service: 07/12/22 Interval History: worsening abd pain since yesterday evening no fever no nausea/vomiting some bloody output in stoma Review of Systems Review of Systems: Yes all other systems are reviewed and are negative Physical Exam Vital Signs: Vital Signs: Last Vital Signs Temp 97.4 F 07/12/22 09:29 Pulse 132 H 07/12/22 08:45 Resp 20 07/12/22 08:45 BP 138/83 07/12/22 08:45 Pulse Ox 93 07/12/22 08:45 O2 Del Method 07/12/22 08:45 O2 Flow Rate 1 07/06/22 07:14 FiO2 93 07/10/22 15:13 Oxygen Flow Rate 35 06/13/22 21:00 BMI result Body Mass Index 35.1 Gen: in no acute distress HEENT: sclera anicteric, moist mucus membranes Neck: supple Lungs: clear to auscultation bilaterally Heart: regular, tachycardic, no murmurs Abd: soft, stoma with liquid stool output, [address] [one with scant watery yellow liquid] Ext: LUE PICC in place Skin: warm/well-perfused Neuro: alert and oriented x3, no focal findings Psych: appropriate affect Objective Data Active Medications Acetaminophen (Acetaminophen 325 Mg Tablet) 650 mg PO Q6H PRN PRN Reason: fever Last Admin: 07/07/22 12:43 Dose: 650 mg Documented By: MARIAN Heparin Sodium (Porcine) 50 (units/ Sodium Chloride 5 ml) 0 units IVFLUSH TID [facility] Last Admin: 07/12/22 08:10 Dose: 50 unit Documented By: JASON-NAMERASTO Dicyclomine HCl (Dicyclomine Hcl 10 Mg Capsule) 20 mg PO TIDAC PRN PRN Reason: cramps Last Admin: 07/11/22 17:09 Dose: 20 mg Documented By: SANTOS Duloxetine HCl (Duloxetine Hcl 60 Mg Capsule.) 60 mg PO BEDTIME [facility] Last Admin: 07/11/22 21:12 Dose: 60 mg Documented By: BRISEYDA Enoxaparin Sodium (Enoxaparin Sodium 100 Mg/Ml Syringe) 90 mg 1 mg/kg (90 mg) SUBCUT Q12H [facility] Last Admin: 07/12/22 04:10 Dose: 90 mg Documented By: ISAIAH Gabapentin (Gabapentin 300 Mg Capsule) 300 mg PO BEDTIME [facility] Last Admin: 07/11/22 21:12 Dose: 300 mg Documented By: LEONDEFarshad Hydromorphone HCl (Hydromorphone Hcl 0.5 Mg/0.5 Ml Syringe) 0.5 mg IVPUSH Q4H PRN; Protocol PRN Reason: mild pain Last Admin: 07/12/22 05:08 Dose: 0.5 mg Documented By: ISAIAH Voriconazole 200 mg/ Sodium (Chloride) 100 mls @ 50 mls/hr IV Q12H [facility] Last Infusion: 07/12/22 02:40 Dose: 0 mls/hr Documented By: JAYASHREE Lactated Ringer's (Lr) 1,000 mls @ 125 mls/hr IVCONT .Q8H [facility] Stop: 07/12/22 23:44 Last Admin: 07/12/22 09:16 Dose: 125 mls/hr Documented By: VITA Metoprolol Tartrate (Metoprolol Tartrate 100 Mg Tablet) 100 mg PO BID [facility]; Protocol Last Admin: 07/01/22 08:09 Dose: 100 mg Documented By: LAUREN Patient Own Med ( (Ajovy 1.5 Ml)) 1.5 ml SUBCUT Q30D [facility] Last Admin: 06/30/22 13:56 Dose: 1.5 ml Documented By: LAKESHIA Nystatin (Nystatin Powder 15 Gm Bottle) 1 appl TOPICAL BID [facility]; Protocol Last Admin: 07/12/22 08:20 Dose: 1 appl Documented By: VITA Ondansetron HCl (Ondansetron Hcl 4 Mg/2 Ml Vial) 4 mg IVPUSH Q6H PRN PRN Reason: Nausea Last Admin: 07/11/22 17:07 Dose: 4 mg Documented By: SANTOS Pharmacy Consult (Consult Rx Perform Med Rec) 1 each MISCELLANE ONCE PRN PRN Reason: Consult order Simethicone (Simethicone 80 Mg Tab.Chew) 80 mg PO QIDWMHS [facility] Last Admin: 07/12/22 08:10 Dose: 80 mg Documented By: VITA Sodium Chloride (0.9 % Sodium Chloride Flush 3 Ml Syringe) 3 ml IVFLUSH QSHIFT [facility] Last Admin: 07/12/22 08:10 Dose: 3 ml Documented By: VITA Sumatriptan Succinate (Sumatriptan Succinate 6 Mg/0.5 Ml Vial) 6 mg SUBCUT DAILY PRN PRN Reason: migraine headache Last Admin: 07/11/22 16:21 Dose: 6 mg Documented By: FOGARTB Topiramate (Topiramate 100 Mg Tablet) 200 mg PO BID [facility] Last Admin: 07/12/22 08:09 Dose: 200 mg Documented By: VITA Vancomycin HCl (Vancomycin Hcl 125 Mg Capsule) 250 mg PO Q6H [facility] Last Admin: 07/12/22 04:10 Dose: 250 mg Documented By: ISAIAH Labs CBC & Chem 7: 07/12/22 06:28 07/12/22 06:28 Labs: Laboratory Results - last 24 hr 07/12/22 07/12/22 06:28 06:28 MCV 91.8 MCH 29.4 MCHC 32.0 RDW 18.4 H Plt Count 428 H MPV 9.4 Absolute Nucleated RBC 0.000 Nucleated RBC % (auto) 0.0 Anion Gap 15 Estim Creat Clear Calc 149.7 Estimated GFR > 60 Random Glucose 100 Calcium 8.0 L Phosphorus 4.3 Magnesium 2.1 C-Reactive Protein 12.50 H Assessment and Plan (1) Colitis due to Clostridioides difficile: Status: Acute (2) Leukocytosis: Status: Acute Plan d#56 62yo F admitted 05/18/22 with colitis/Crohn's flare.? Flex sig showed perforation with abscess; taken to OR for ex-lap with colostomy after found to have extensive fecal soilage in peritoneum.? Severely septic, sent to ICU intubated.? Course since then complicated by multiple intra-abdominal abscesses causing fevers, with multiple drains placed by IR.? Treated with metronidazole + meropenem and given TPN.? Extubated 06/07/22, transitioned to tube feeds and then to oral diet.Now with C difficile colitis, severe.? Slowly improving # Severe C difficile colitis - PO vancomycin 250 mg qid day 07/24, s/p IV metronidazole x 7 days, WBC normalized, no fevers - continue simethicone and prn dicyclomine - tolerating diet, stoma functioning normal. given worsening abd pain and increasing WBCs, obtaining CT A/P [already ordered by Surgery] # status-post septic shock secondary to perforated viscus with fecal peritonitis/ Fungal Peritonitis - voriconazole () [will change to oral upon eventual discharge] - s/p ex-lap/colostomy - got 3 wk of meropenem , IV meropenem restarted on 07/01 due to leukocytosis stopped on 07/07 - extubated 06/07/22, given TPN, transitioned to tube feeds, then to oral feeds - abscess drainage x3; latest IR-guided drainage on 06/22 with removal of 500 mL of purulent fluid now drains with minimal drainage- 2 drains out so far, 1 remains - encourage OOB to chair, IS, protein supplementation # LUE DVT(catheter-associated) proximal left brachial vein diagnosed on 06/27 - midline catheter removed, continue enoxaparin 1 mg/kg q12h day 15, discuss duration of anticoagulation with Hematology # SABINE - resolved # acute respiratory failure - extubated in ICU 06/07/22 # recurrent toxic metabolic encephalopathy - likely related to ICU delirium, resolved # sinus tachycardia - on metoprolol, continue to monitor # VTE ppx: LMWH # dispo: plan AIR In my clinical judgment, the patient requires continued inpatient hospitalization for the following reasons: IV antifungal, IR drain Quality Stroke Does the patient have a stroke diagnosis?: No VTE Prior VTE?: No VTE Risk Level:: Medical - moderate - high VTE Device Contraindication: N/A - Device Ordered VTE Drug Contraindication: N/A - Med Ordered
[2022-07-12] MEDS: iohexoL 350 MG/ML 100 ML INFUS..BTL 85 ML IV (11:09)
--- NOTE | 2022-07-12 11:11 | MHC.CLN ---
F/U PO INTAKE SLOWLY IMPROVING 75% X 2 DIET RX: REGULAR-APPROPRIATE PT ACCEPTING AND DRINKING ENSURE TID PROVIDES 1050KCALS, 60G PROTEIN CONTINUE TO MONITOR PO INTAKE CLOSELY
--- NOTE | 2022-07-12 12:38 | PM.GIPN ---
Subjective Subjective Date of Service: 07/12/22 Interval History: c/o upper abd pain Critical Care Time (minutes): 0 Physical Exam Vital Signs: Vital Signs: Last Vital Signs Temp 99.2 F 07/12/22 11:12 Pulse 134 H 07/12/22 11:12 Resp 20 07/12/22 11:12 BP 137/69 07/12/22 11:12 Pulse Ox 92 07/12/22 11:12 O2 Del Method 07/12/22 11:12 O2 Flow Rate 1 07/06/22 07:14 FiO2 93 07/10/22 15:13 Oxygen Flow Rate 35 06/13/22 21:00 BMI result Body Mass Index 35.1 GI: Other: tender across upper abd Objective Data Labs CBC & Chem 7: 07/12/22 06:28 07/12/22 06:28 Labs: Laboratory Results - last 24 hr 07/12/22 07/12/22 06:28 06:28 WBC 12.8 H RBC 2.69 L Hgb 7.9 L Hct 24.7 L MCV 91.8 MCH 29.4 MCHC 32.0 RDW 18.4 H Plt Count 428 H MPV 9.4 Absolute Nucleated RBC 0.000 Nucleated RBC % (auto) 0.0 Sodium 137 Potassium 3.8 Chloride 104 Carbon Dioxide 22 Anion Gap 15 BUN 6 L Creatinine 0.42 L Estim Creat Clear Calc 149.7 Estimated GFR > 60 Random Glucose 100 Calcium 8.0 L Phosphorus 4.3 Magnesium 2.1 C-Reactive Protein 12.50 H Microbiology Microbiology Results: Microbiology 06/02/22 Unknown Abscess Intra-abdominal Fungal Identification - Final Verónica dubliniensis 06/22/22 16:30 Abdominal Fluid Gram Stain - Final 06/22/22 16:30 Abdominal Fluid Routine Culture - Final Verónica albicans 06/22/22 16:30 Abdominal Fluid Anaerobic Culture - Final NO GROWTH AFTER 5 DAYS 06/30/22 07:05 Blood - Venous Blood Culture - Final Corynebacterium species 07/01/22 16:44 Blood - Venous Blood Culture - Final No growth after 5 days. 07/01/22 16:45 Blood - Venous Blood Culture - Final No growth after 5 days. 06/30/22 07:05 Blood - Venous Blood Culture - Final No growth after 5 days. 06/27/22 01:16 Blood - Venous Blood Culture - Final No growth after 5 days. 06/27/22 01:16 Blood - Venous Blood Culture - Final No growth after 5 days. 06/24/22 06:14 Blood - Venous Blood Culture - Final No growth after 5 days. 06/24/22 06:14 Blood - Venous Blood Culture - Final No growth after 5 days. 06/03/22 15:28 Blood - Subclavian Blood Culture - Final No growth after 5 days. 06/03/22 06:15 Blood - Venous Blood Culture - Final No growth after 5 days. 06/03/22 06:15 Blood - Venous Blood Culture - Final No growth after 5 days. 06/02/22 Unknown Peritoneal Fluid Gram Stain - Final 06/02/22 Unknown Peritoneal Fluid Routine Culture - Final Verónica albicans 06/02/22 Unknown Peritoneal Fluid Anaerobic Culture - Final 05/29/22 15:14 Blood - Venous Blood Culture - Final No growth after 5 days. 05/29/22 15:13 Blood - Venous Blood Culture - Final No growth after 5 days. 05/29/22 05:14 Blood - Venous Blood Culture - Final No growth after 5 days. 05/29/22 05:14 Blood - Venous Blood Culture - Final No growth after 5 days. 06/02/22 Unknown Abscess Intra-abdominal Gram Stain - Final 06/02/22 Unknown Abscess Intra-abdominal Routine Culture - Final 06/02/22 Unknown Abscess Intra-abdominal Anaerobic Culture - Final 06/02/22 Unknown Abscess Intra-abdominal Gram Stain - Final 06/02/22 Unknown Abscess Intra-abdominal Routine Culture - Final 05/28/22 Unknown Peritoneal Fluid Gram Stain - Final 05/28/22 Unknown Peritoneal Fluid Anaerobic Culture - Final 05/28/22 Unknown Peritoneal Fluid Body Fluid Culture - Final Verónica dubliniensis 05/29/22 15:05 Sputum - Suctioned Gram Stain - Final 05/29/22 15:05 Sputum - Suctioned Sputum Culture - Final Verónica dubliniensis 05/28/22 16:47 Sputum - Suctioned Gram Stain - Final 05/28/22 16:47 Sputum - Suctioned Sputum Culture - Final Verónica albicans 05/23/22 Unknown Peritoneal Fluid Gram Stain - Final 05/23/22 Unknown Peritoneal Fluid Routine Culture - Final Escherichia coli 05/23/22 Unknown Peritoneal Fluid Anaerobic Culture - Final Clostridium perfringens Bacteroides thetaiotaomicron 05/19/22 08:49 Blood - Venous Blood Culture - Final No growth after 5 days. 05/19/22 08:49 Blood - Venous Blood Culture - Final No growth after 5 days. Procedures Date of Service Date of Service: 07/12/22 Arterial Line Size (Gauge): 16 Progress Note: A&P Assessment and plan (1) Perforated viscus: Status: Acute Assessment and Plan: see below Plan abd pain ct pending Time Spent With Patient Time: Total time spent is greater than 50% in coordination of care (as documented) at patient's floor/unit and/or counseling patient: Quality Stroke Does the patient have a stroke diagnosis?: No VTE Prior VTE?: No VTE Risk Level:: Medical - moderate - high VTE Device Contraindication: N/A - Device Ordered VTE Drug Contraindication: N/A - Med Ordered
[2022-07-12] MEDS: HYDROmorphone HCl 1 MG/ML SYRINGE IVPUSH ×2 (12:45→22:08)
--- NOTE | 2022-07-12 13:00 | P.CNHO_ITS ---
Subjective - Subjective Chief complaint: Abdominal pain Patient: new to practice Consult date: 07/12/22 Requesting Physician: Dr. Acuña Primary Care Provider: Deandre Younger MD HPI - Consult Narrative Reason for consult: left upper extremity catheter associated DVT Narrative: Ju Hankins is an unfortunate 62-year-old woman with history of Crohn's disease who was admitted on 05/18/2022 with colitis and perforation of bowel with abscess formation. She underwent exploratory laparotomy with colostomy, she was septic and required intubation secondary to multiple intra-abdominal abscesses. She was treated with antibiotics and eventually extubated on 06/07/2022. She was diagnosed with Clostridium difficile colitis and is currently receiving vancomycin and Flagyl. On 06/27/2022 she developed swelling of the left upper extremity, she was diagnosed with proximal left brachial vein thrombus related to catheter. Ca theter has been removed and she has been on enoxaparin 1 milligram/kilos twice a day since the . Hematology consultation has been called regarding duration of anticoagulation. At this time, unfortunately patient is having a lot of abdominal discomfort. She is not passing any stool or gas through her ostomy. She did say that they were slight amount of bloody discharge from the ostomy yesterday. Review of Systems - Constitutional Reports as per HPI - Neurologic Reports confusion, Denies dizziness PMFSH Medical History: Medical History (Last Updated 06/24/22 @ 14:33 by Puja Nielsen MD) Arthritis Back pain Carpal tunnel syndrome COVID-19 vaccine series completed Crohn's disease Environmental allergies Fever of unknown origin Fibromyalgia GERD (gastroesophageal reflux disease) Herniated cervical disc Hx of migraines Iron deficiency anemia Leukocytosis Perforated viscus PONV (postoperative nausea and vomiting) Shock Thoracic disc herniation Vitamin D deficiency Functional capacity: independent ambulation Family history: reviewed and not pertinent Surgical History: Surgical History (Last Reviewed 06/12/22 @ 08:28 by Juliane Olmos OTR-L) History of esophagogastroduodenoscopy (EGD) History of surgery History of tonsillectomy History of tubal ligation Hx of cholecystectomy Hx of colonoscopy Hx of fusion of cervical spine Hx of shoulder surgery Status post colostomy Social History: Social History (Last Reviewed 05/24/22 @ 16:06 by Puja Nielsen MD) Living Situation History: Household Members: Spouse Housing: House Are you a primary resident care technician to a significant other at home: No Do you presently have visiting nurse or other home services: No Tobacco History: Patient Tobacco Use Status: Never used Tobacco Tobacco use type: Cigarette Smoke Quit Date: 1999 Advance Directives: Advance Directives Date on File: 06/23/20 Occupation Assessmet: service: No Current occupational status: employed Home Medications and Allergies Current Medications: Current Medications Acetaminophen (Acetaminophen 325 Mg Tablet) 650 mg PO Q6H PRN PRN Reason: fever Last Admin: 07/07/22 12:43 Dose: 650 mg Heparin Sodium (Porcine) 50 (units/ Sodium Chloride 5 ml) 0 units IVFLUSH TID [facility] Last Admin: 07/12/22 08:10 Dose: 50 unit Dicyclomine HCl (Dicyclomine Hcl 10 Mg Capsule) 20 mg PO TIDAC PRN PRN Reason: cramps Last Admin: 07/11/22 17:09 Dose: 20 mg Duloxetine HCl (Duloxetine Hcl 60 Mg Capsule.Dr) 60 mg PO BEDTIME [facility] Last Admin: 07/11/22 21:12 Dose: 60 mg Enoxaparin Sodium (Enoxaparin Sodium 100 Mg/Ml Syringe) 90 mg 1 mg/kg (90 mg) SUBCUT Q12H [facility] Last Admin: 07/12/22 04:10 Dose: 90 mg Fidaxomicin (Fidaxomicin 200 Mg Tablet) 200 mg PO Q12H [facility] Gabapentin (Gabapentin 300 Mg Capsule) 300 mg PO BEDTIME [facility] Last Admin: 07/11/22 21:12 Dose: 300 mg Hydromorphone HCl (Hydromorphone Hcl 0.5 Mg/0.5 Ml Syringe) 0.75 mg IVPUSH Q4H PRN; Protocol PRN Reason: mild pain Voriconazole 200 mg/ Sodium (Chloride) 100 mls @ 50 mls/hr IV Q12H [facility] Last Admin: 07/12/22 12:30 Dose: 50 mls/hr Lactated Ringer's (Lr) 1,000 mls @ 125 mls/hr IVCONT .Q8H [facility] Stop: 07/12/22 23:44 Last Admin: 07/12/22 09:16 Dose: 125 mls/hr Metoprolol Tartrate (Metoprolol Tartrate 100 Mg Tablet) 100 mg PO BID [facility]; Protocol Last Admin: 07/01/22 08:09 Dose: 100 mg Patient Own Med ( (Ajovy 1.5 Ml)) 1.5 ml SUBCUT Q30D [facility] Last Admin: 06/30/22 13:56 Dose: 1.5 ml Nystatin (Nystatin Powder 15 Gm Bottle) 1 appl TOPICAL BID [facility]; Protocol Last Admin: 07/12/22 08:20 Dose: 1 appl Ondansetron HCl (Ondansetron Hcl 4 Mg/2 Ml Vial) 4 mg IVPUSH Q6H PRN PRN Reason: Nausea Last Admin: 07/11/22 17:07 Dose: 4 mg Pharmacy Consult (Consult Rx Perform Med Rec) 1 each MISCELLANE ONCE PRN PRN Reason: Consult order Simethicone (Simethicone 80 Mg Tab.Chew) 80 mg PO QIDWMHS [facility] Last Admin: 07/12/22 12:30 Dose: 80 mg Sodium Chloride (0.9 % Sodium Chloride Flush 3 Ml Syringe) 3 ml IVFLUSH QSHIFT [facility] Last Admin: 07/12/22 08:10 Dose: 3 ml Sumatriptan Succinate (Sumatriptan Succinate 6 Mg/0.5 Ml Vial) 6 mg SUBCUT DAILY PRN PRN Reason: migraine headache Last Admin: 07/11/22 16:21 Dose: 6 mg Topiramate (Topiramate 100 Mg Tablet) 200 mg PO BID [facility] Last Admin: 07/12/22 08:09 Dose: 200 mg Home Medications Medication Instructions Recorded Confirmed Type mesalamine 0.375 gram 1.5 g PO QAM 10/21/20 05/18/22 History capsule,extended release 24 hr (Apriso) methocarbamol 750 mg tablet 750 mg PO TID 10/21/20 05/18/22 History multivit with 1 tab PO DAILY 10/21/20 05/18/22 History xbpadhkn-mhmv-VW-lutein 8 mg iron-400 mcg-300 mcg tablet (Centrum Silver Women) pantoprazole 40 mg tablet,delayed 40 mg PO BEDTIME 10/21/20 05/18/22 History release (Protonix) loratadine 10 mg tablet (Claritin) 10 mg PO DAILY 06/24/21 05/18/22 History duloxetine 60 mg capsule,delayed 1 cap PO BEDTIME 05/18/22 05/18/22 History release fremanezumab-vfrm 225 mg/1.5 mL 1.5 mg subcut Q30D 05/18/22 05/18/22 History subcutaneous syringe (Ajovy Syringe) ondansetron 8 mg disintegrating 1 tab PO DAILY PRN Nausea 05/18/22 05/18/22 History tablet rizatriptan 10 mg tablet 1 tab PO DAILY PRN Migraine 05/18/22 05/18/22 History Headache topiramate 100 mg tablet 2 tab PO BID 05/18/22 05/18/22 History Allergies Allergy/AdvReac Type Severity Reaction Status Date / Time omeprazole [OMEPRAZOLE] Allergy Severe N/V Verified 01/29/22 15:10 tramadol [From Ultram] Allergy Intermediate ITCHING Verified 01/29/22 15:10 ibuprofen [From Motrin] Allergy Unknown Verified 05/18/22 09:23 Physical Exam Vital signs: Vital Signs Temp 99.2 F 07/12/22 11:12 Pulse 134 H 07/12/22 11:12 Resp 20 07/12/22 11:12 BP 137/69 07/12/22 11:12 Pulse Ox 92 07/12/22 11:12 O2 Del Method 07/12/22 11:12 O2 Flow Rate 1 07/06/22 07:14 FiO2 93 07/10/22 15:13 Intake & Output 07/11/22 07/12/22 07/12/22 18:59 06:59 18:59 Intake Total 460 / 800 340 / 800 Output Total 400 / 1350 950 / 1350 Balance 60 / -550 -610 / -550 Urine Output (Average ml/kg/hr) 0.35 0.69 Intake: Intake, Oral Amount 360 / 600 240 / 600 Intake, IV Amount 100 / 200 100 / 200 Voriconazole 200 mg In 0.9 % 100 / 200 100 / 200 Sodium Chloride 100 ml @ 50 mls /hr IV Q12H [facility] Rx#:[id number] Output: Output, Urine Amount 400 / 750 350 / 750 Output, Stool Amount 200 / 200 Output, Urine Amount (Catheter) 400 / 400 PureWick 400 / 400 Other: Breakfast % Eaten 75% Lunch % Eaten 50% Urine purewick purewick Urine Color Tea Yellow Stool Ostomy Stool Amount Small Stool Color Dark Brown Stool Consistency Loose Weight 90 kg [place] Weight in Grams 41093 Weight 90 kg - Constitutional Present: moderate distress, chronically ill appearing - Routine HEENT Exam Head: Present: atraumatic Eye: Present: conjunctivae pale - Routine Neck Exam Absent: lymphadenopathy - Routine Respiratory Exam Absent: accessory muscle use - Routine Cardiovascular Exam Cardiovascular: Present: S1, S2 - Routine Abdominal Exam Present: distended, firm - Routine Extremities Exam Present: pulses intact. Absent: pedal edema, palpable cord Hem/Onc Consult Result - Labs CBC & Chem 7: 07/12/22 06:28 07/12/22 06:28 Labs: Short CBC 07/12/22 Range/Units 06:28 WBC 12.8 H (4.8-10.8) X10*3/uL Hgb 7.9 L (12.0-16.0) g/dl Hct 24.7 L (37.0-47.0) % Plt Count 428 H (160-400) X10*3/uL BMP 07/12/22 06:28 Sodium 137 Potassium 3.8 Chloride 104 Carbon Dioxide 22 BUN 6 L Creatinine 0.42 L Calcium 8.0 L Assessment and Plan Patient Active problem list reviewed?: Yes (1) Left upper extremity deep vein thrombosis Status: Acute Assessment and plan: 1. This is a 62-year-old woman with long complicated hospital course as described above who was diagnosed with catheter associated left upper extremity DVT on 06/27/2022. The catheter has since been removed and she has been on anticoagulation with enoxaparin 1 milligram/kilos b.i.d. since 06/27/2022. The swelling in her left arm has resolved. She reports of bloody discharge from her ostomy and her hemoglobin has dropped to 7.9 gram/dL. There are no randomized controlled studies to recommend anticoagulation for upper extremity DVT, data is extrapolated from studies involving the lower extremities. Decision for anticoagulation should be individualized, however, anticoa gulation is generally recommended especially in the acute setting or in the setting of symptoms. Because of her anemia and recent bowel perforation and multiple other medical issues, she is at high risk of bleeding. I am concerned about bleeding in this woman and I recommend obtaining a repeat Doppler of the left upper extremity. If the clot has resolved or become smaller, anticoagulation may be discontinued. I thank you for this consultation. - Time Spent With Patient Time Spent with Patient (in minutes): 15
[2022-07-12 13:11] LABS: CDiff Gene PCR NEGATIVE (Negative)
[2022-07-12] MEDS: metroNIDAZOLE/NS 500 MG/100 ML PIGGYBACK 100 MG IV ×2 (14:10→21:00)
--- NOTE | 2022-07-12 14:41 | PM.EVENT ---
Event Note Date of Service: 07/12/22 Event Note: CT scan reviewed with radiologists - diffuse edema of the colon from the cecum to the stoma consistent with colitis, likely C diff Explained this to patient Abdomen soft although distended, no guarding rebound Switch to Dificid NPO, bowel rest IV fluids May need prolonged treatment of C diff colitis Discussed with hospitalist service
--- NOTE | 2022-07-12 15:30 | MHC.CM.PN ---
per rounds pt not ready for dc white count is up
[2022-07-12] MEDS: vancomycin HCL 125 MG CAPSULE 500 MG PO (16:03)
[2022-07-12] MEDS: Acetaminophen 325 MG TABLET 650 MG PO (17:45)
[2022-07-12] MEDS: ondansetron HCL 4 MG/2 ML VIAL IVPUSH (17:45)
--- NOTE | 2022-07-12 18:10 | PC.NURSE ---
Addendum entered by Shabana Hunter RN 07/12/22 19:55: pt called at 1848 with c/o severe sharp/stabbing abd pain again and stated something is wrong . contacted and to bedside to assess pt. New orders for NPO, KUB, stat lactate/CBC/T+S. PRN medication administered per NOV. Report given to overnight RN. This RN and overnight RN in to assess pt together. Call arteaga within reach, saftey precautions taken. Addendum entered by Shabana Hunter RN 07/12/22 18:16: at 1600 pt c/o 9/10 sharp/stabbing abd pain again. PRN medication pulled from [facility], one syringe of Dilaudid taken out. Order called for 0.75mg/mL, [facility] alloted 0.5mg/0.5mL with intentions to take two syringes out, one syringe taken out instead of 2. Pt received 0.5mg/0.5mL Dilaudid. administrative resources associate per NOV under old order of 0.5mg/0.5mL Q4 PRN for pain, 0.5mg/0.5mL Dilaudid administered. Pharmacy called x2 to assist, supervisor public message service called and at [facility] with this RN to assist. Original Note: report received from overnight RN. Pt c/o sharp/stabbing pain to her abd at 0745, notified at 0749, one time order for prn medication admin per NOV and order for CT abd. Pt down to CT scan at 1040. At 1230 pt c/o sharp/stabbing pain to her abd and states the pain medication is only lasting for about two hours and only comes down to a 6/10. notified. administrative resources associate per NOV. Assisted pt with repositioning, applied ice and heat to try managing pain with little relief. Pt updated by surgeon about CT results. Safety precautions taken, call arteaga within reach, bed alarm on, hourly rounding.
[2022-07-12] MEDS: Cyclobenzaprine HCl 5 MG TABLET PO (18:48)
--- NOTE | 2022-07-12 18:56 | PM.EVENT ---
Event Note Date of Service: 07/12/22 Event Note: Called by RN to assess pt for severe abd pain, increasing distension. CT earlier today had showed diffuse colitis from cecum through to colostomy. Pt in severe pain and abd markedly distended and tympanic. Ostomy emptied, 100 mL fluid. Discussed with Dr Dietz from Gen Surg. Plan: stat KUB, CBCd, lactate, T+S. Signed out to Dr Dixon.
[2022-07-12 19:33] LABS: MANUAL DIFF FLAG NO
[2022-07-12 19:39] LABS: Basophils Absolute Auto 0.1 X10*3/uL (0.0-0.2); Basophils Percent Auto 0.3 % (0-2); Imm Gran Abs Auto 0.39 X10*3/uL (0.00-0.03); Lymphocytes Absolute Auto 2.4 X10*3/uL (1.2-4.9); Lymphocytes Percent Auto 12.2 % (20-40); Mean Corpuscular HGB Conc 31.1 g/dl (31.0-35.0); Mean Corpuscular Hemoglobin 29.2 pg (27.0-33.0); Mean Corpuscular Volume 94.1 fL (80.0-98.0); Mean Platelet Volume 9.5 fL (9.4-12.3); Monocytes Absolute Auto 0.9 X10*3/uL (0.1-1.2); Monocytes Percent Auto 4.8 % (2-11); Neutrophils Absolute Auto 15.7 x10*3/uL (2.0-8.3); Neutrophils Percent Auto 80.7 % (45-73); Platelet Count 464 X10*3/uL (160-400); Red Blood Count 2.19 X10*6/uL (4.20-5.50); Red Cell Distribution Width 18.3 % (11.0-16.0); White Blood Count 19.4 X10*3/uL (4.8-10.8)
[2022-07-12 19:48] LABS: Hematocrit 20.6 % (37.0-47.0); Hemoglobin 6.4 g/dl (12.0-16.0)
[2022-07-12] MEDS: Morphine Sulfate 4 MG/ML CARTRIDGE IVPUSH (20:41)
[2022-07-12] MEDS: Gabapentin 300 MG CAPSULE PO (20:54)
[2022-07-12] MEDS: DULoxetine HCl 60 MG CAPSULE.DR PO (20:56)
[2022-07-12 21:04] LABS: Lactate Dehydrogenase 203 U/L (122-220)
--- NOTE | 2022-07-12 23:31 | PM.EVENT ---
Event Note Date of Service: 07/12/22 Event Note: KUB showed no SBO. spoke to surgery. will try to give vanc AL through Stoma. spoke to pharmacy, was able to arrange. Vanco will be given 500 mg in 100 ml through stoma q6 hrs pt is awake alert, complaining of abd pain and back pain. will increase her pain meds, lidocaine patch for back pain. H&H showed drop in hemoglobin ostomy bag with some blood. will consult GI
[2022-07-13] VITALS (20 sets, daily range): BP systolic 88–147; BP diastolic 56–97; PULSE 124–135; RESP 16–24; TEMP 35–37.1; O2SAT 91–100; BMI 35.3
[2022-07-13] MEDS: vancomycin HCL 500 MG in 0.9 % Sodium Chloride 100 ML IV (00:19)
--- NOTE | 2022-07-13 02:52 | PC.NURSE ---
1 unit of RBCs was ordered by MD for low H&H of 6.4 and 20.6. Difficulty infusing blood via R forearm PICC line, sluggish infusion rate despite PICC line being patent. RN supervisor public health nursing made aware of difficulties, pressure bag was utilized with minimal improvement. Pt is a difficult stick however RN supervisor public health nursing was able to obtain new 22 R wrist. Blood was connected to new IV site. Unfortunately, time allotted was reached and per policy had to stop blood transfusion at 4hr maria c. Approximately half of the bag (175mls) was infused. RN Ocular Care Technician and MD aware. No new orders at this time.
[2022-07-13] MEDS: HYDROmorphone HCl 1 MG/ML SYRINGE 0.75 MG IVPUSH ×3 (02:59→08:20)
[2022-07-13] MEDS: ondansetron HCL 4 MG/2 ML VIAL IVPUSH (05:00)
[2022-07-13] MEDS: Morphine Sulfate 4 MG/ML CARTRIDGE IVPUSH (05:02)
[2022-07-13] MEDS: Enoxaparin Sodium 100 MG/ML SYRINGE 90 MG SUBCUT (05:06)
[2022-07-13] MEDS: metroNIDAZOLE/NS 500 MG/100 ML PIGGYBACK 100 MG IV ×2 (05:08→20:42)
[2022-07-13] MEDS: Nystatin Powder 15 GM BOTTLE 1 APPL TOPICAL ×3 (06:50→20:45)
[2022-07-13] MEDS: vancomycin HCL 500 MG in 0.9 % Sodium Chloride 100 ML 100 MG IV (06:51)
[2022-07-13] MEDS: Lactated Ringers 1,000 ML 125 ML IVCONT (07:45)
[2022-07-13] MEDS: 0.9 % Sodium Chloride Flush 3 ML SYRINGE IVFLUSH (07:55)
--- NOTE | 2022-07-13 07:55 | P.PNGS_ITS ---
Subjective Subjective Date of Service: 07/17/22 Interval history: says she feels her abdl pain and distension is worsening blloody output from stoma Physical Exam Vital Signs: Vital Signs: Last Vital Signs Temp 97.4 F 07/13/22 07:07 Pulse 129 H 07/13/22 07:07 Resp 20 07/13/22 07:07 BP 115/71 07/13/22 07:07 Pulse Ox 92 07/13/22 07:07 O2 Del Method 07/13/22 07:07 O2 Flow Rate 1 07/06/22 07:14 FiO2 93 07/10/22 15:13 Oxygen Flow Rate 35 06/13/22 21:00 BMI result Body Mass Index 35.3 Const: Other: c/o pain and distension Resp: Other: short of breath Cardio: Rate: tachycardic GI: Other: distended, no guarding, diffuse tenderness Objective Data Active Medications Acetaminophen (Acetaminophen 325 Mg Tablet) 650 mg PO Q6H PRN PRN Reason: fever Last Admin: 07/12/22 17:45 Dose: 650 mg Documented By: SANTOS Heparin Sodium (Porcine) 50 (units/ Sodium Chloride 5 ml) 0 units IVFLUSH TID [facility] Last Admin: 07/13/22 02:04 Dose: Not Given Documented By: ALLISON Non-Admin Reason: IV Running Cyclobenzaprine HCl (Cyclobenzaprine Hcl 5 Mg Tablet) 5 mg PO TID PRN PRN Reason: back pain Last Admin: 07/12/22 18:48 Dose: 5 mg Documented By: SANTOS Dicyclomine HCl (Dicyclomine Hcl 10 Mg Capsule) 20 mg PO TIDAC PRN PRN Reason: cramps Last Admin: 07/11/22 17:09 Dose: 20 mg Documented By: SANTOS Duloxetine HCl (Duloxetine Hcl 60 Mg Capsule.Dr) 60 mg PO BEDTIME [facility] Last Admin: 07/12/22 20:56 Dose: 60 mg Documented By: ALLISON Gabapentin (Gabapentin 300 Mg Capsule) 300 mg PO BEDTIME [facility] Last Admin: 07/12/22 20:54 Dose: 300 mg Documented By: ALLISON Hydromorphone HCl (Hydromorphone Hcl 1 Mg/Ml Syringe) 0.75 mg IVPUSH Q3H PRN; Protocol PRN Reason: Pain, Severe (Pain Scale 7-10) Last Admin: 07/13/22 06:15 Dose: 0.75 mg Documented By: ALLISON Metronidazole (Flagyl) 500 mg in 100 mls @ 100 mls/hr IV Q8H [facility] Last Infusion: 07/13/22 07:42 Dose: 0 mls/hr Documented By: EDDI Voriconazole 200 mg/ Sodium (Chloride) 100 mls @ 50 mls/hr IV Q12H [facility] Vancomycin HCl 500 mg/ Sodium (Chloride) 110 mls @ 100 mls/hr OR Q6H [facility]; Protocol Lactated Ringer's (Lr) 1,000 mls @ 125 mls/hr IVCONT .Q8H [facility] Last Admin: 07/13/22 07:45 Dose: 125 mls/hr Documented By: JENNIFER Lidocaine (Lidocaine 4 % Patch Adh..Patch) 1 patch TRANSDERMA DAILY [facility]; Protocol Metoprolol Tartrate (Metoprolol Tartrate 100 Mg Tablet) 100 mg PO BID [facility]; Protocol Last Admin: 07/01/22 08:09 Dose: 100 mg Documented By: LAUREN Morphine Sulfate (Morphine Sulfate 4 Mg/Ml Cartridge) 4 mg IVPUSH Q4H PRN; Protocol PRN Reason: Pain, Severe (Pain Scale 7-10) Last Admin: 07/13/22 05:02 Dose: 4 mg Documented By: ALLISON Patient Own Med ( (Ajovy 1.5 Ml)) 1.5 ml SUBCUT Q30D [facility] Last Admin: 06/30/22 13:56 Dose: 1.5 ml Documented By: LAKESHIA Nystatin (Nystatin Powder 15 Gm Bottle) 1 appl TOPICAL BID [facility]; Protocol Last Admin: 07/13/22 06:50 Dose: 1 appl Documented By: ALLISON Ondansetron HCl (Ondansetron Hcl 4 Mg/2 Ml Vial) 4 mg IVPUSH Q6H PRN PRN Reason: Nausea Last Admin: 07/13/22 05:00 Dose: 4 mg Documented By: ALLISON Pharmacy Consult (Consult Rx Perform Med Rec) 1 each MISCELLANE ONCE PRN PRN Reason: Consult order Simethicone (Simethicone 80 Mg Tab.Chew) 80 mg PO QIDWMHS [facility] Last Admin: 07/12/22 20:55 Dose: 80 mg Documented By: ALLISON Sodium Chloride (0.9 % Sodium Chloride Flush 3 Ml Syringe) 3 ml IVFLUSH QSHIFT [facility] Last Admin: 07/13/22 02:05 Dose: Not Given Documented By: ALLISON Non-Admin Reason: IV Running Sumatriptan Succinate (Sumatriptan Succinate 6 Mg/0.5 Ml Vial) 6 mg SUBCUT DAILY PRN PRN Reason: migraine headache Last Admin: 07/11/22 16:21 Dose: 6 mg Documented By: SANTOS Topiramate (Topiramate 100 Mg Tablet) 200 mg PO BID [facility] Last Admin: 07/12/22 20:54 Dose: 200 mg Documented By: ALLIOSN Vancomycin HCl (Vancomycin Hcl 125 Mg Capsule) 500 mg PO Q6H [facility] Labs CBC & Chem 7: 07/17/22 05:16 07/17/22 05:16 Labs: Laboratory Results - last 24 hr 07/12/22 07/12/22 07/12/22 06:28 19:25 19:25 MCV MCH MCHC RDW Plt Count MPV Immature Gran % (Auto) Neut % (Auto) Lymph % (Auto) [place] % (Auto) Eos % (Auto) Baso % (Auto) Lymph # (Auto) [place] # (Auto) Eos # (Auto) Baso # (Auto) Abs Immat Gran (auto) Absolute Neuts (auto) Absolute Nucleated RBC Nucleated RBC % (auto) Lactic Acid 1.0 Lactate Dehydrogenase 203 C. difficile Tox B Gene Blood Type B Positive Antibody Screen NEGATIVE Crossmatch See Detail 07/12/22 07/12/22 19:25 Unknown MCV 94.1 MCH 29.2 MCHC 31.1 RDW 18.3 H Plt Count 464 H MPV 9.5 Immature Gran % (Auto) 2.0 H Neut % (Auto) 80.7 H Lymph % (Auto) 12.2 L [place] % (Auto) 4.8 Eos % (Auto) 0.0 Baso % (Auto) 0.3 Lymph # (Auto) 2.4 [place] # (Auto) 0.9 Eos # (Auto) 0.0 Baso # (Auto) 0.1 Abs Immat Gran (auto) 0.39 H Absolute Neuts (auto) 15.7 H Absolute Nucleated RBC 0.000 Nucleated RBC % (auto) 0.0 Lactic Acid Lactate Dehydrogenase C. difficile Tox B Gene NEGATIVE Blood Type Antibody Screen Crossmatch Procedures Date of Service Date of Service: 07/13/22 Arterial Line Size (Gauge): 16 Progress Note: A&P Assessment and plan (1) Colitis due to Clostridioides difficile: Status: Acute Assessment and Plan: worsening clinically - more distended with pain and tenderness CT yesterday - severe diffuse edema of entire remaiining colon from stoma to cecum I had a long discussion with her it appears she will need subtotal colectomy for her toxic colitis, with bleeding, this may be her best window to undergo surgery while she is still relatively hemdynamically stable I explained to her and technique of subtotal colectomy, ileostomy reviewed risks including but not limited to bleeding, infections, RI, sepsis, bowel injury, organ failure colitiis likely to worsen without surgery, with eventual perforation/toxicity, sepsis, mutiorgan failure she understands that she will require ICU management postop, likely to need ventilatory support I have discussed this with ICU as well Dr. Pinedo Time Spent With Patient Time: Total time spent is greater than 50% in coordination of care (as documented) at patient's floor/unit and/or counseling patient: Quality Stroke Does the patient have a stroke diagnosis?: No VTE Prior VTE?: No VTE Risk Level:: Medical - moderate - high VTE Device Contraindication: N/A - Device Ordered VTE Drug Contraindication: N/A - Med Ordered
[2022-07-13] MEDS: Topiramate 100 MG TABLET 200 MG PO (08:51)
[2022-07-13 09:32] LABS: Mean Corpuscular HGB Conc 32.6 g/dl (31.0-35.0); Mean Corpuscular Hemoglobin 30.1 pg (27.0-33.0); Mean Corpuscular Volume 92.5 fL (80.0-98.0); Mean Platelet Volume 9.7 fL (9.4-12.3); Platelet Count 401 X10*3/uL (160-400); Red Blood Count 1.86 X10*6/uL (4.20-5.50); Red Cell Distribution Width 17.8 % (11.0-16.0)
[2022-07-13 09:37] LABS: INTERNATIONAL NORM RATIO 1.1 (0.9-1.1); Prothrombin Time 13.2 SEC (10.0-13.1)
--- NOTE | 2022-07-13 09:38 | PC.NURSE ---
anasarca all over. repositioned two assist. voided on bedpan. voided 200ml dark with odor.
[2022-07-13 09:40] LABS: Partial Thromboplastin Time 34.5 SEC (26.0-36.4)
[2022-07-13 09:42] LABS: Hemoglobin 5.6 g/dl (12.0-16.0)
[2022-07-13 09:43] LABS: Hematocrit 17.2 % (37.0-47.0)
--- NOTE | 2022-07-13 09:48 | P.PNIM_ITS ---
Subjective Subjective Date of Service: 07/13/22 Interval History: Worsening abd pain/distention No fever Hb 6.4 last night, 1u pRBCs ordered Hb 5.6 this AM, 2u pRBCs ordered No residual clot in LUE; LMWH discontinued Plan OR today Review of Systems Review of Systems: Yes all other systems are reviewed and are negative Physical Exam Vital Signs: Vital Signs: Last Vital Signs Temp 98.4 F 07/13/22 09:18 Pulse 128 H 07/13/22 09:18 Resp 24 H 07/13/22 09:18 BP 129/66 07/13/22 09:18 Pulse Ox 96 07/13/22 09:18 O2 Del Method 07/13/22 09:18 O2 Flow Rate 1 07/13/22 09:18 FiO2 93 07/10/22 15:13 Oxygen Flow Rate 35 06/13/22 21:00 BMI result Body Mass Index 35.3 Gen: ill-appearing HEENT: sclera anicteric, moist mucus membranes Neck: supple Lungs: clear to auscultation bilaterally Heart: regular, tachycardic, no murmurs Abd: distended, tender, stoma with scant bleeding, [address] [one with scant watery yellow liquid] Ext: LUE PICC in place Skin: warm/well-perfused Neuro: alert and oriented x3, no focal findings Psych: appropriate affect Objective Data Active Medications Acetaminophen (Acetaminophen 325 Mg Tablet) 650 mg PO Q6H PRN PRN Reason: fever Last Admin: 07/12/22 17:45 Dose: 650 mg Documented By: SANTOS Heparin Sodium (Porcine) 50 (units/ Sodium Chloride 5 ml) 0 units IVFLUSH TID [facility] Last Admin: 07/13/22 07:58 Dose: Not Given Documented By: EDDI Non-Admin Reason: flushed with saline, pt is going to OR\ Cyclobenzaprine HCl (Cyclobenzaprine Hcl 5 Mg Tablet) 5 mg PO TID PRN PRN Reason: back pain Last Admin: 07/12/22 18:48 Dose: 5 mg Documented By: SANTOS Dicyclomine HCl (Dicyclomine Hcl 10 Mg Capsule) 20 mg PO TIDAC PRN PRN Reason: cramps Last Admin: 07/11/22 17:09 Dose: 20 mg Documented By: SANTOS Duloxetine HCl (Duloxetine Hcl 60 Mg Capsule.Dr) 60 mg PO BEDTIME [facility] Last Admin: 07/12/22 20:56 Dose: 60 mg Documented By: ALLISON Gabapentin (Gabapentin 300 Mg Capsule) 300 mg PO BEDTIME [facility] Last Admin: 07/12/22 20:54 Dose: 300 mg Documented By: ALLISON Hydromorphone HCl (Hydromorphone Hcl 1 Mg/Ml Syringe) 0.75 mg IVPUSH Q3H PRN; Protocol PRN Reason: Pain, Severe (Pain Scale 7-10) Last Admin: 07/13/22 08:20 Dose: 0.75 mg Documented By: EDDI Metronidazole (Flagyl) 500 mg in 100 mls @ 100 mls/hr IV Q8H [facility] Last Infusion: 07/13/22 07:42 Dose: 0 mls/hr Documented By: EDDI Vancomycin HCl 500 mg/ Sodium (Chloride) 110 mls @ 100 mls/hr TX Q6H [facility]; Protocol Lactated Ringer's (Lr) 1,000 mls @ 125 mls/hr IVCONT .Q8H [facility] Last Admin: 07/13/22 07:45 Dose: 125 mls/hr Documented By: RAFIAUMGERARDO Voriconazole 200 mg/ Sodium (Chloride) 100 mls @ 50 mls/hr IV Q12H [facility] Last Admin: 07/13/22 08:25 Dose: Not Given Documented By: EDDI Non-Admin Reason: blood transfusion Lidocaine (Lidocaine 4 % Patch Adh..Patch) 1 patch TRANSDERMA DAILY [facility]; Protocol Last Admin: 07/13/22 07:56 Dose: Not Given Documented By: EDDI Non-Admin Reason: going to OR Metoprolol Tartrate (Metoprolol Tartrate 100 Mg Tablet) 100 mg PO BID [facility]; Protocol Last Admin: 07/01/22 08:09 Dose: 100 mg Documented By: LAUREN Morphine Sulfate (Morphine Sulfate 4 Mg/Ml Cartridge) 4 mg IVPUSH Q4H PRN; Protocol PRN Reason: Pain, Severe (Pain Scale 7-10) Last Admin: 07/13/22 05:02 Dose: 4 mg Documented By: ALLISON Patient Own Med ( (Ajovy 1.5 Ml)) 1.5 ml SUBCUT Q30D [facility] Last Admin: 06/30/22 13:56 Dose: 1.5 ml Documented By: LAKESHIA Nystatin (Nystatin Powder 15 Gm Bottle) 1 appl TOPICAL BID [facility]; Protocol Last Admin: 07/13/22 07:57 Dose: 1 appl Documented By: EDDI Ondansetron HCl (Ondansetron Hcl 4 Mg/2 Ml Vial) 4 mg IVPUSH Q6H PRN PRN Reason: Nausea Last Admin: 07/13/22 05:00 Dose: 4 mg Documented By: ALLISON Pharmacy Consult (Consult Rx Perform Med Rec) 1 each MISCELLANE ONCE PRN PRN Reason: Consult order Simethicone (Simethicone 80 Mg Tab.Chew) 80 mg PO QIDWMHS [facility] Last Admin: 07/13/22 07:55 Dose: Not Given Documented By: EDDI Non-Admin Reason: NPO Sodium Chloride (0.9 % Sodium Chloride Flush 3 Ml Syringe) 3 ml IVFLUSH QSHIFT [facility] Last Admin: 07/13/22 07:55 Dose: 3 ml Documented By: EDDI Sumatriptan Succinate (Sumatriptan Succinate 6 Mg/0.5 Ml Vial) 6 mg SUBCUT DAILY PRN PRN Reason: migraine headache Last Admin: 07/11/22 16:21 Dose: 6 mg Documented By: SANTOS Topiramate (Topiramate 100 Mg Tablet) 200 mg PO BID [facility] Last Admin: 07/13/22 08:51 Dose: 200 mg Documented By: EDDI Vancomycin HCl (Vancomycin Hcl 125 Mg Capsule) 500 mg PO Q6H [facility] Last Admin: 07/13/22 07:56 Dose: Not Given Documented By: EDDI Non-Admin Reason: NPO Labs CBC & Chem 7: 07/13/22 08:31 07/12/22 06:28 Labs: Laboratory Results - last 24 hr 07/12/22 07/12/22 07/12/22 06:28 19:25 19:25 MCV MCH MCHC RDW Plt Count MPV Immature Gran % (Auto) Neut % (Auto) Lymph % (Auto) Faulk % (Auto) Eos % (Auto) Baso % (Auto) Lymph # (Auto) Faulk # (Auto) Eos # (Auto) Baso # (Auto) Abs Immat Gran (auto) Absolute Neuts (auto) Absolute Nucleated RBC Nucleated RBC % (auto) PT INR APTT Lactic Acid 1.0 Lactate Dehydrogenase 203 C. difficile Tox B Gene Blood Type B Positive Antibody Screen NEGATIVE Crossmatch See Detail 07/12/22 07/12/22 07/13/22 19:25 Unknown 08:31 MCV 94.1 92.5 MCH 29.2 30.1 MCHC 31.1 32.6 RDW 18.3 H 17.8 H Plt Count 464 H 401 H MPV 9.5 9.7 Immature Gran % (Auto) 2.0 H Neut % (Auto) 80.7 H Lymph % (Auto) 12.2 L Faulk % (Auto) 4.8 Eos % (Auto) 0.0 Baso % (Auto) 0.3 Lymph # (Auto) 2.4 Faulk # (Auto) 0.9 Eos # (Auto) 0.0 Baso # (Auto) 0.1 Abs Immat Gran (auto) 0.39 H Absolute Neuts (auto) 15.7 H Absolute Nucleated RBC 0.000 0.000 Nucleated RBC % (auto) 0.0 0.0 PT INR APTT Lactic Acid Lactate Dehydrogenase C. difficile Tox B Gene NEGATIVE Blood Type Antibody Screen Crossmatch 07/13/22 08:31 MCV MCH MCHC RDW Plt Count MPV Immature Gran % (Auto) Neut % (Auto) Lymph % (Auto) Faulk % (Auto) Eos % (Auto) Baso % (Auto) Lymph # (Auto) Faulk # (Auto) Eos # (Auto) Baso # (Auto) Abs Immat Gran (auto) Absolute Neuts (auto) Absolute Nucleated RBC Nucleated RBC % (auto) PT 13.2 H INR 1.1 APTT 34.5 Lactic Acid Lactate Dehydrogenase C. difficile Tox B Gene Blood Type Antibody Screen Crossmatch Assessment and Plan (1) Colitis due to Clostridioides difficile: Status: Acute (2) Leukocytosis: Status: Acute Plan [id number] 62yo F admitted 05/18/22 with colitis/Crohn's flare.? Flex sig showed perforation with abscess; taken to OR for ex-lap with colostomy after found to have extensive fecal soilage in peritoneum.? Severely septic, sent to ICU intubated.? Course since then complicated by multiple intra-abdominal abscesses causing fevers, with multiple drains placed by IR.? Treated with metronidazole + meropenem and given TPN.? Extubated 06/07/22, transitioned to tube feeds and then to oral diet. Now with C difficile colitis, severe. # fulminant C difficile colitis - on 12th day of PO vancomycin and worsening; got 7d of IV metronidazole and this was restarted yesterday. Worsening distension and leukocytosis. Plan OR today. # acute blood loss anemia - due to colitis. d/c LMWH. transfuse 2u pRBCs # status-post septic shock secondary to perforated viscus with fecal periton itis/ Fungal Peritonitis - voriconazole () [will change to oral upon eventual discharge] - s/p ex-lap/colostomy - got 3 wk of meropenem , IV meropenem restarted on 07/01 due to leukocytosis stopped on 07/07 - extubated 06/07/22, given TPN, transitioned to tube feeds, then to oral feeds - abscess drainage x3; latest IR-guided drainage on 06/22 with removal of 500 mL of purulent fluid now drains with minimal drainage- 2 drains out so far, 1 remains - encourage OOB to chair, IS, protein supplementation # LUE DVT(catheter-associated) proximal left brachial vein diagnosed on 06/27 - midline catheter removed, no residual clot, LMWH discontinued # SABINE - resolved # acute respiratory failure - extubated in ICU 06/07/22 # recurrent toxic metabolic encephalopathy - likely related to ICU delirium, resolved # sinus tachycardia - on metoprolol, continue to monitor # VTE ppx: LMWH # dispo: plan AIR In my clinical judgment, the patient requires continued inpatient hospitalization for the following reasons: operative intervention Quality Stroke Does the patient have a stroke diagnosis?: No VTE Prior VTE?: No VTE Risk Level:: Medical - moderate - high VTE Device Contraindication: N/A - Device Ordered VTE Drug Contraindication: N/A - Med Ordered
[2022-07-13 09:53] LABS: Anion Gap 17 (12-20); Blood Urea Nitrogen 10 mg/dL (9-16); Calcium 7.9 mg/dL (8.4-10.2); Carbon Dioxide 21 mmol/L (22-29); Chloride 103 mmol/L (96-108); Creatinine Clr Calc Pharmacy 131.3; Estimated Glomerular Filt Rate > 60; Glucose Random 109 mg/dL (60-115); Potassium 4.2 mmol/L (3.3-5.1); Sodium 137 mmol/L (135-145)
[2022-07-13 18:33] LABS: Base Excess Bedside Calculated 1 mmol/L (-3-3); Glucose, i-STAT 152 mg/dL (60-115); HCO3 Bedside Calculated 25 mmol/L (22-26); Hematocrit Bedside 16 %PCV (37-47); Hemoglobin Bedside 5.4 g/dL (12.0-16.0); Potassium Bedside 3.8 mmol/L (3.3-5.1); SO2 Bedside Calculated 100 %; Sodium Bedside 140 mmol/L (135-145); TCO2 Bedside 26 mmol/L (24-29); pCO2 Bedside 41 mmhg (35-48); pO2 Bedside 338 mmhg (83-108)
[2022-07-13 18:33] LABS: Base Excess Bedside Calculated -3 mmol/L (-3-3); Glucose, i-STAT 159 mg/dL (60-115); HCO3 Bedside Calculated 24 mmol/L (22-26); Hematocrit Bedside 20 %PCV (37-47); Hemoglobin Bedside 6.8 g/dL (12.0-16.0); Potassium Bedside 3.9 mmol/L (3.3-5.1); SO2 Bedside Calculated 100 %; Sodium Bedside 139 mmol/L (135-145); TCO2 Bedside 25 mmol/L (24-29); pCO2 Bedside 53 mmhg (35-48); pH Bedside 7.26 (7.35-7.45); pO2 Bedside 337 mmhg (83-108)
--- NOTE | 2022-07-13 18:58 | P.OP_ITS ---
Operative Note Operative Note Date of Service: 07/13/22 Narrative: Preop diagnosis: C diff colitis, with toxic colitis Postop diagnosis: C diff colitis, with toxic megacolon Procedure: Laparotomy, extensive lysis of adhesions, sub- total colectomy, end ileostomy, extensive lysis of adhesions surgeon: Deandre Hagan MD liaison inspection laboratory assistant: MD RUSSELL Ugalde The patient is a 62 year female who had undergone laparotomy, Callie's pr ocedure last May 18, 2022 because of perforated sigmoid. She has been in hospital since that time because of fecal peritonitis. she has been slowly recovering. She has had much improved oral intake, and good stoma function. She actually has been doing much better with all therapy. However, she had developed C diff colitis which she she initially responded to treatment. She however started to have pain again and distension 2 days ago with bloody output from her stoma. Her CAT scan yesterday showed diffuse colitis starting from the cecum all the way to the ostomy. She was placed on Dificid. She did not improved overnight and as a matter fact had worsening distension, and pain. She has had no output from her stoma except for amounts of blood. I therefore explained to her that it will be best to proceed with total colectomy because of this toxic colitis. I explained to her the technique of this procedure as well as the risks, benefits, and alternatives. She was brought to the operating room. She was placed supine under general anesthesia via endotracheal tube. Marie catheter was inserted. The abdomen was prepped and draped in the usual sterile fashion. A surgical time-out was done. I closed the colostomy with a running Dexon 2-0 stitch to leakage during the procedure. I made a generous long midline laparotomy incision using blade 10. And this was carried down with electrocautery through the full-thickness of the skin subcutaneous fat. We had to go through a thick amount of subcutaneous fat because of her body habitus. Note of edema of the subcutaneous fat. We opened the fascia. We extended the fascial incision to optimize the length of the skin incision. Immediately, the transverse colon was seen this was very distended, and severely edematous. This was consistent with toxic megacolon. There were unfortunately very dense adhesions on both sides with the abdomen from his previous fecal peritonitis. to achieve exposure therefore, we had to proceed slowly and do an extensive lysis of adhesions with Metzenbaum scissors, electrocautery as well as dissection. To expose the fascia on both sides took an extended period of time. There were note of a lot of interloop abscesses As well. There was note of a lot of indurated mesentery and dissection was very tedious and difficult. We were the small bowel loops from cecum gently to expose this and we encountered bleeding from the mesentery. Dr. Nevarez of vascular surgery called in as this was initially thought to be very brisk bleeding. However, this appeared to be more of venous bleeding which were able to control with hips. There was some bleeding from the esentery that was controlled with a [id number]-bo-oerny stitch as well. Some point, I decided to therefore released the colostomy from the abdominal wall. I made an incision around this colostomy on the skin using blade 15. And carried down this incision with electrocautery to the fascia. I looked for the interface between the fascia and the wall of the colostomy. I created a defect here in follow this to do circumferential dissection until I was able to free up the colostomy from the fascia. I then proceeded to go back into the peritoneal side of the abdominal wall and attempted to reduce this entire stoma. This was met with a lot of difficulty in view of the extensive adhesions surrounding the area as well from the peritoneal side. Eventually, I was able to reduce this completely. I attempted follow the ostomy on the left side to allow mobilization. Again we met up with significant adhesions of the small bowel on this side with very dense induration to the abdominal wall on the left upper quadrant. I therefore attempted to expose the right side of the colon. However there was note of a lot of adhesions again on the small bowel side pelvis. It appeared that a lot of the bowel was plastered at the pelvis as well. We therefore attempted to post as much of the small bowel as we can safely. At some point, was able to gently mobilize the transverse colon and followed this distally. However we met with a lot of adhesions again in the area with small bowel loops that were markedly stuck on this entire left upper quadrant. We had to do a lot of careful dissection to mobilize this. This part of the procedure again took an extended period of time because of the very dense adhesions of multiple small bowel loops along with interloop abscesses. Inevitably, we created a lot of enterotomies because of this mobilization. I felt however that it was important to be able to free up this left upper quadrant to visualize the splenic flexure and the left colon as well as distal transverse colon to allow as to continue with the procedure. After a prolonged dissection for hours, I was eventually able to release this from the left upper quadrant with multiple enterotomies. Able to expose the splenic flexure. Was able to continue to mobilize the left colon along poorly defined planes at the gutter with gentle dissection. We were carefully able to mobilize the splenic flexure from the spleen and bring this out into the field. by doing so I was able to avoid the mesentery of the left colon and followed this all the way to the transverse. We continued with this dissection the transverse colon from this stomach continued to divide the mes entery. We proceeded with this all the way to the hepatic flexure and the right colon. We encountered multiple indurated segments along the way especially on the mesenteric side in view of the previous abscesses requiring drains. be continued to divide mesentery all the way to the cecum. He terminal ileum was eventually densely adherent to the pelvis. I mobilized this as much as I can by dividing indurated bands until I was at least able to expose the terminal ileum near the ileocecal valve. Created a mesenteric window along this and divided with a ANA M 60 mm stapler. This allowed us to further expose the remaining mesentery of the cecum in the right colon. We had to also carefully the very densely adherent appendix using blunt dissection. This allowed us to achieve good exposure of the remaining mesentery and we completed transection of the entire colon and this was sent as a specimen. At this point, I completed the examination of the entire small bowel loops starting from the proximal jejunum near the ligament of Treitz all the way to the terminal ileum. I identified 2 long segments in the left upper quadrant, of jejunum with multiple enterotomies. I therefore had to resect 2 segments. The 1st segment was about 13 cm in length and the 2nd segment was about 19 cm in length. These were very indurated segments with multiple enterotomies. I did anastomosis of each segment the usual fashion. The divided ends were aligned, enterotomies were created to position the ANA M staplers. Did [id number] anastomosis and completed the anastomosis by closing the enterotomy with a TA 60 mm stapler. This was done on both areas of the jejunum There was the distal however that was still markedly indurated and plastered to the pelvis. Again we had to do a lot of careful dissection to separate this. As we proceeded to do this, we encountered a dense adherence the rectosigmoid pouch. The rectosigmoid pouch appeared to be opened at the old staple line during the dissection and we had to closed with a running Dexon 2-0 stitch. there was another enterotomy liver distal ileum. We decided to resect this very distal segment with the enterotomy to bring this out the of this as our end ileostomy. To allow as to bring this meant are any ostomy, we had to mobilize some more of the very distal ileum by dividing indurated areas off of the rest of the this. We proceeded with this massive lysis of adhesions until we had enough length to bring this out as an ileostomy We then copies irrigated. I suctioned out irrigant fluid. I excised discoid piece of skin on the right lower quadrant with a blade 10. I cauterized through the subcutaneous fat all the way to the fascia to expose this. I excised the anterior sheath and did muscle-splitting of the rectus to reate our stoma opening. I pulled up the very distal ileum through this opening using a Ines clampin preparation for for our end ileostomy. We again copiously irrigated. with re-examined the entire small bowel from the ligament of Treitz all the way sure that we did not miss any enterotomies. Once hemostasis was confirmed, I proceeded to then close the fascia of the colostomy in the left lower quadrantwith a running Maxon 1 stitch. I also closed the posterior sheath with the Dexon 2-0 running stitch I closed the fascia with a running Maxon 1 stitch. It is noted that the lower part of the incision was very tenuous on the fascial it level because of the previous surgery I therefore reinforced this closure with 2 retention sutures. I matured the end ileostomy by excising the staple line and securing the wall with Dexon 3-0 sutures to the subdermal layer circumferentially. The ileostomy appeared viable although edematous I applied skin jazmine to the skin loosely. I placed some packings in the subcutaneous layer Dressings were applied. The stoma appliance was placed and the procedure was completed The patient did have episodes of hypotension during the procedure. She was transfused 2 units of blood during the procedure. Our estimated blood loss was about 2000 cc She was then transferred to the ICU I had discussed her case with the etcher apprentice photoengraving. Initial and final counts of sponges and instruments were correct.
--- NOTE | 2022-07-13 19:34 | P.PNCC_ITS ---
Subjective Subjective Date of Service: 07/13/22 Interval History: 62-year-old lady with underlying history of Crohn's admitted on 05/18/2022 with abdominal discomfort secondary to peritoneal abscess resulting in viscus perforation and peritonitis requiring sigmoid resection with colostomy formation and washout on 05/23/2022 and placement of additional abdominal drains on 05/30/2022, extubated 06/07/2022, further hospital course complicated by severe C.Diff with toxic megacolon s/p ex-lap with colectomy / ileostomy and hemorrhagic shock on 07/13/2022, transferred intubated to ICU. Critical Care Time (minutes): 90 Physical Exam Vital Signs: Vital Signs: Last Vital Signs Temp 98.0 F 07/13/22 10:08 Pulse 130 H 07/13/22 19:12 Resp 17 07/13/22 19:12 BP 124/70 07/13/22 19:12 Pulse Ox 100 07/13/22 19:12 O2 Del Method 07/13/22 19:12 O2 Flow Rate 100 07/13/22 19:12 FiO2 93 07/10/22 15:13 Oxygen Flow Rate 35 06/13/22 21:00 BMI result Body Mass Index 35.3 Const: General: no acute distress and other (sedated on the vent) Eyes: Sclerae: sclerae normal EOM: EOMs intact bilaterally Neck: Neck: Yes no lymphadenopathy, Yes trachea midline and Yes supple Resp: Effort & Inspection: normal respiratory effort and no respiratory distress Auscultation: clear to auscultation bilaterally Cardio: Rate: tachycardic Rhythm: regular rhythm Heart sounds: no gallops, no murmurs and no rubs GI: Palpation (GI): Soft to palpation and Other GI palpation findings present ( ileostomy) Auscultation: Hypoactive bowel sounds present Extrem: General: No clubbing, No cyanosis and Yes edema (1+ bilateral) Objective Data Labs CBC & Chem 7: 07/13/22 08:31 07/13/22 08:31 Labs: Laboratory Results - last 24 hr 07/12/22 07/12/22 07/12/22 06:28 19:25 19:25 WBC RBC Hgb POC Hgb (Calc) Hct POC Hct MCV MCH MCHC RDW Plt Count MPV Immature Gran % (Auto) Neut % (Auto) Lymph % (Auto) [place] % (Auto) Eos % (Auto) Baso % (Auto) Lymph # (Auto) [place] # (Auto) Eos # (Auto) Baso # (Auto) Abs Immat Gran (auto) Absolute Neuts (auto) Absolute Nucleated RBC Nucleated RBC % (auto) PT INR APTT POC Std Base Excess POC O2 Sat (Calc) POC ABG pO2 POC ABG Total CO2 POC Capillary pH POC Capillary pCO2 POC Cap HCO3 (Calc) POC Sodium Sodium POC Potassium Potassium Chloride Carbon Dioxide Anion Gap BUN Creatinine Estim Creat Clear Calc Estimated GFR POC Glucose Random Glucose Lactic Acid 1.0 Calcium Lactate Dehydrogenase 203 Blood Type B Positive Antibody Screen NEGATIVE Crossmatch See Detail 07/12/22 07/13/22 07/13/22 19:25 08:31 08:31 WBC 19.4 H 14.0 H RBC 2.19 L 1.86 L Hgb 6.4 L* 5.6 L* POC Hgb (Calc) Hct 20.6 L* 17.2 L* POC Hct MCV 94.1 92.5 MCH 29.2 30.1 MCHC 31.1 32.6 RDW 18.3 H 17.8 H Plt Count 464 H 401 H MPV 9.5 9.7 Immature Gran % (Auto) 2.0 H Neut % (Auto) 80.7 H Lymph % (Auto) 12.2 L [place] % (Auto) 4.8 Eos % (Auto) 0.0 Baso % (Auto) 0.3 Lymph # (Auto) 2.4 [place] # (Auto) 0.9 Eos # (Auto) 0.0 Baso # (Auto) 0.1 Abs Immat Gran (auto) 0.39 H Absolute Neuts (auto) 15.7 H Absolute Nucleated RBC 0.000 0.000 Nucleated RBC % (auto) 0.0 0.0 PT INR APTT POC Std Base Excess POC O2 Sat (Calc) POC ABG pO2 POC ABG Total CO2 POC Capillary pH POC Capillary pCO2 POC Cap HCO3 (Calc) POC Sodium Sodium 137 POC Potassium Potassium 4.2 Chloride 103 Carbon Dioxide 21 L Anion Gap 17 BUN 10 D Creatinine 0.48 L Estim Creat Clear Calc 131.3 Estimated GFR > 60 POC Glucose Random Glucose 109 Lactic Acid Calcium 7.9 L Lactate Dehydrogenase Blood Type Antibody Screen Crossmatch 07/13/22 07/13/22 07/13/22 08:31 15:11 16:01 WBC RBC Hgb POC Hgb (Calc) 6.8 L* 5.4 L* Hct POC Hct 20 L* 16 L* MCV MCH MCHC RDW Plt Count MPV Immature Gran % (Auto) Neut % (Auto) Lymph % (Auto) [place] % (Auto) Eos % (Auto) Baso % (Auto) Lymph # (Auto) [place] # (Auto) Eos # (Auto) Baso # (Auto) Abs Immat Gran (auto) Absolute Neuts (auto) Absolute Nucleated RBC Nucleated RBC % (auto) PT 13.2 H INR 1.1 APTT 34.5 POC Std Base Excess -3 1 POC O2 Sat (Calc) 100 100 POC ABG pO2 337 H 338 H POC ABG Total CO2 25 26 POC Capillary pH 7.26 L 7.40 POC Capillary pCO2 53 H 41 POC Cap HCO3 (Calc) 24 25 POC Sodium 139 140 Sodium POC Potassium 3.9 3.8 Potassium Chloride Carbon Dioxide Anion Gap BUN Creatinine Estim Creat Clear Calc Estimated GFR POC Glucose 159 H 152 H Random Glucose Lactic Acid Calcium Lactate Dehydrogenase Blood Type Antibody Screen Crossmatch Microbiology Microbiology Results: Microbiology 06/02/22 Unknown Abscess Intra-abdominal Fungal Identification - Final Verónica dubliniensis 06/22/22 16:30 Abdominal Fluid Gram Stain - Final 06/22/22 16:30 Abdominal Fluid Routine Culture - Final Verónica albicans 06/22/22 16:30 Abdominal Fluid Anaerobic Culture - Final NO GROWTH AFTER 5 DAYS 06/30/22 07:05 Blood - Venous Blood Culture - Final Corynebacterium species 07/01/22 16:44 Blood - Venous Blood Culture - Final No growth after 5 days. 07/01/22 16:45 Blood - Venous Blood Culture - Final No growth after 5 days. 06/30/22 07:05 Blood - Venous Blood Culture - Final No growth after 5 days. 06/27/22 01:16 Blood - Venous Blood Culture - Final No growth after 5 days. 06/27/22 01:16 Blood - Venous Blood Culture - Final No growth after 5 days. 06/24/22 06:14 Blood - Venous Blood Culture - Final No growth after 5 days. 06/24/22 06:14 Blood - Venous Blood Culture - Final No growth after 5 days. 06/03/22 15:28 Blood - Subclavian Blood Culture - Final No growth after 5 days. 06/03/22 06:15 Blood - Venous Blood Culture - Final No growth after 5 days. 06/03/22 06:15 Blood - Venous Blood Culture - Final No growth after 5 days. 06/02/22 Unknown Peritoneal Fluid Gram Stain - Final 06/02/22 Unknown Peritoneal Fluid Routine Culture - Final Verónica albicans 06/02/22 Unknown Peritoneal Fluid Anaerobic Culture - Final 05/29/22 15:14 Blood - Venous Blood Culture - Final No growth after 5 days. 05/29/22 15:13 Blood - Venous Blood Culture - Final No growth after 5 days. 05/29/22 05:14 Blood - Venous Blood Culture - Final No growth after 5 days. 05/29/22 05:14 Blood - Venous Blood Culture - Final No growth after 5 days. 06/02/22 Unknown Abscess Intra-abdominal Gram Stain - Final 06/02/22 Unknown Abscess Intra-abdominal Routine Culture - Final 06/02/22 Unknown Abscess Intra-abdominal Anaerobic Culture - Final 06/02/22 Unknown Abscess Intra-abdominal Gram Stain - Final 06/02/22 Unknown Abscess Intra-abdominal Routine Culture - Final 05/28/22 Unknown Peritoneal Fluid Gram Stain - Final 05/28/22 Unknown Peritoneal Fluid Anaerobic Culture - Final 05/28/22 Unknown Peritoneal Fluid Body Fluid Culture - Final Verónica dubliniensis 05/29/22 15:05 Sputum - Suctioned Gram Stain - Final 05/29/22 15:05 Sputum - Suctioned Sputum Culture - Final Verónica dubliniensis 05/28/22 16:47 Sputum - Suctioned Gram Stain - Final 05/28/22 16:47 Sputum - Suctioned Sputum Culture - Final Verónica albicans 05/23/22 Unknown Peritoneal Fluid Gram Stain - Final 05/23/22 Unknown Peritoneal Fluid Routine Culture - Final Escherichia coli 05/23/22 Unknown Peritoneal Fluid Anaerobic Culture - Final Clostridium perfringens Bacteroides thetaiotaomicron 05/19/22 08:49 Blood - Venous Blood Culture - Final No growth after 5 days. 05/19/22 08:49 Blood - Venous Blood Culture - Final No growth after 5 days. Progress Note: A&P Assessment and plan (1) Colitis due to Clostridioides difficile: Status: Acute (2) Acute respiratory failure with hypoxia: Status: Acute (3) Crohn's disease: Status: Acute (4) Megacolon, toxic: Status: Acute (5) Hemorrhagic shock: Status: Acute Plan Assessment: 62-year-old lady with sigmoid perforation resulting peritonitis status post sigmoid resection, colostomy, washout, multiple abdominal collections requiring additional NOHEMI drain placements, now s/p ex-lap for toxic megacolon 2/2 C.Diff further complicated by hemorrhagic shock Plan: Neuro: No acute issues Cardiac: Hemorrhagic shock, improving, continue to titrate off pressors Pulmonary: Acute respiratory failure with hypoxia post-op after surgery. Continue to titrate off ventilatory ort as tolerated. Renal: No acute issues. Endo: No acute issues. GI: Underlying Crohn's. Sigmoid perforation with peritonitis status post washout and sigmoid resection with colostomy initially. General surgery and gastroenterology services care appreciated. Now with prolonged hospital course further complicated by toxic megacolon from C.Diff, status post ex-lap today with colectomy and ileostomy complicated by multiple oozing requiring 8 units of PRBC ID: C.Diff on Vanc/Flagyl. Infectious disease service care appreciated, complicated Heme/Onc: Hemorrhagic shock, s/p 8 units of PRBC, 4 FFP, 1 cryo, 1 platelets. Continue to monitor Hb level Psych: No acute issues. Miscellaneous: No acute issues. Prophylaxis: famotidine, heparin Diet: TPN Critical care time spent: 90 minutes Quality Stroke Does the patient have a stroke diagnosis?: No VTE Prior VTE?: No VTE Risk Level:: Medical - moderate - high VTE Device Contraindication: N/A - Device Ordered VTE Drug Contraindication: N/A - Med Ordered
[2022-07-13 19:42] LABS: VBG Base Excess -3.1 mmol/L; VBG HCO3 20 mmol/L (22-26); VBG pCO2 31 mmHg; VBG pH 7.41 (7.32-7.43); VBG pO2 240 mmHg
[2022-07-13 19:44] LABS: MANUAL DIFF FLAG NO
[2022-07-13] MEDS: fentaNYL citrate/NS 1,000 MCG/100 ML PLAST..BAG 5 MCG IVCONT (19:45)
[2022-07-13] MEDS: propofoL 1,000 MG/100 ML VIAL 10.85 MG IVCONT (19:45)
[2022-07-13 19:46] LABS: Basophils Percent Auto 0.3 % (0-2); Eosinophils Absolute Auto 0.1 X10*3/uL (0.0-0.4); Eosinophils Percent Auto 0.4 % (0-4); Hematocrit 27.1 % (37.0-47.0); Hemoglobin 9.2 g/dl (12.0-16.0); Imm Gran Abs Auto 0.33 X10*3/uL (0.00-0.03); Imm Gran Pct Auto 2.7 % (0.0-0.4); Lymphocytes Absolute Auto 2.1 X10*3/uL (1.2-4.9); Mean Corpuscular HGB Conc 33.9 g/dl (31.0-35.0); Mean Corpuscular Hemoglobin 29.7 pg (27.0-33.0); Mean Corpuscular Volume 87.4 fL (80.0-98.0); Mean Platelet Volume 9.2 fL (9.4-12.3); Monocytes Absolute Auto 0.8 X10*3/uL (0.1-1.2); Monocytes Percent Auto 6.4 % (2-11); Neutrophils Absolute Auto 8.9 x10*3/uL (2.0-8.3); Neutrophils Percent Auto 73.2 % (45-73); Platelet Count 198 X10*3/uL (160-400); Red Cell Distribution Width 16.2 % (11.0-16.0); White Blood Count 12.2 X10*3/uL (4.8-10.8)
--- NOTE | 2022-07-13 19:50 | PC.NURSE ---
Addendum entered by Rajni Winkler RN 07/14/22 05:37: midline incision remains CD&I, abdomen soft, ostomy out out 70mls of dark liquid, gravity drain put out 40mls throughout shift. Original Note: pt arrived to unit at 1900. vasopressin .04units/min, sbp dropped to 90s vassopressin increased to 0.04 per md. pt started on prop and fentynal for sedation. midline dressing CD&I, new colostomy draining scant amount dark liquid stool stoma appears pink.Rt at bedside tube tamer placed 7.0 tube 20cm at the lip, VBG p02 200, fi02 decreased to 35%, odell draining clear dark yellow urine, family at bedside,
[2022-07-13 20:00] LABS: Lactic Acid 1.1 mmol/L (0.5-2.0)
[2022-07-13 20:07] LABS: Alanine Aminotransferase 8 U/L (0-31); Albumin Level 1.8 g/dL (3.5-5.0); Alkaline Phosphatase 41 U/L (39-117); Anion Gap 14 (12-20); Aspartate Amino Transferase 9 U/L (5-31); Bilirubin Total 1.4 mg/dL (0.0-1.0); Blood Urea Nitrogen 8 mg/dL (9-16); Calcium 8.7 mg/dL (8.4-10.2); Carbon Dioxide 20 mmol/L (22-29); Chloride 109 mmol/L (96-108); Creatinine Clr Calc Pharmacy 140.1; Estimated Glomerular Filt Rate > 60; Glucose Random 185 mg/dL (60-115); Magnesium 1.5 mg/dL (1.6-2.6); Phosphorus 5.7 mg/dL (2.7-4.5); Potassium 4.1 mmol/L (3.3-5.1); Sodium 139 mmol/L (135-145); Total Protein 3.2 g/dL (6.5-8.0)
[2022-07-13] MEDS: Albumin Human 25 % 100 ML IV ×2 (20:37→21:00)
[2022-07-13] MEDS: Chlorhexidine Gluc Oral Rinse 15 ML MOUTHWASH BUCCAL (20:47)
[2022-07-13] MEDS: Magnesium Sulfate/H2O 2 GM/50 ML PIGGYBACK IV (20:57)
[2022-07-13 21:04] LABS: Venous Blood Gas Refer to POC result
[2022-07-13] MEDS: Voriconazole 200 MG in 0.9 % Sodium Chloride 100 ML 50 MG IV (21:15)
[2022-07-13] MEDS: cefEPime HCl 2 GM in 0.9 % Sodium Chloride 50 ML IV (22:11)
[2022-07-13] MEDS: propofoL 1,000 MG/100 ML VIAL 16.27 MG IVCONT (23:42)
[2022-07-14] VITALS (38 sets, daily range): BP systolic 95–181; BP diastolic 48–99; PULSE 121–141; RESP 18–26; TEMP 34.4–37.7; O2SAT 94–100; BMI 35.7
[2022-07-14] MEDS: propofoL 1,000 MG/100 ML VIAL 21.7 MG IVCONT ×6 (03:45→23:43)
[2022-07-14 05:29] LABS: VBG Base Excess -4.4 mmol/L; VBG HCO3 19 mmol/L (22-26); VBG pCO2 29 mmHg; VBG pH 7.41 (7.32-7.43); VBG pO2 64 mmHg
[2022-07-14 05:29] LABS: Venous Blood Gas Refer to POC result
[2022-07-14 05:31] LABS: Hematocrit 21.4 % (37.0-47.0); Hemoglobin 7.3 g/dl (12.0-16.0); Mean Corpuscular HGB Conc 34.1 g/dl (31.0-35.0); Mean Corpuscular Volume 88.1 fL (80.0-98.0); Mean Platelet Volume 9.7 fL (9.4-12.3); Platelet Count 244 X10*3/uL (160-400); Red Blood Count 2.43 X10*6/uL (4.20-5.50); Red Cell Distribution Width 17.2 % (11.0-16.0)
[2022-07-14] MEDS: metroNIDAZOLE/NS 500 MG/100 ML PIGGYBACK 100 MG IV ×3 (05:31→22:21)
[2022-07-14 05:38] LABS: WBC ABN SCTR FOR CBC 1
[2022-07-14 05:40] LABS: White Blood Count 12.6 X10*3/uL (4.8-10.8)
[2022-07-14 05:53] LABS: Alanine Aminotransferase < 6 U/L (0-31); Albumin Level 2.6 g/dL (3.5-5.0); Alkaline Phosphatase 34 U/L (39-117); Anion Gap 17 (12-20); Aspartate Amino Transferase 6 U/L (5-31); Bilirubin Total 0.7 mg/dL (0.0-1.0); Blood Urea Nitrogen 9 mg/dL (9-16); Calcium 8.5 mg/dL (8.4-10.2); Carbon Dioxide 19 mmol/L (22-29); Chloride 108 mmol/L (96-108); Creatinine Clr Calc Pharmacy 126.1; Estimated Glomerular Filt Rate > 60; Glucose Random 187 mg/dL (60-115); Magnesium 1.9 mg/dL (1.6-2.6); Phosphorus 3.9 mg/dL (2.7-4.5); Potassium 3.5 mmol/L (3.3-5.1); Sodium 140 mmol/L (135-145); Total Protein 3.9 g/dL (6.5-8.0)
[2022-07-14 06:01] LABS: Band Neutrophils Percent 22 % (3-5); Lymphocytes Absolute Manual 1.3 X10*3/uL (1.2-4.9); Lymphocytes Percent Manual 10 % (20-40); Monocytes Absolute Manual 0.5 X10*3/uL (0.1-1.2); Monocytes Percent Manual 4 % (2-11); Neutrophils Absolute Manual 10.8 X10*3/uL (2.0-8.3); Neutrophils Percent Manual 64 % (45-73)
[2022-07-14 06:03] LABS: Acanthocytes 2+ (3-5) /OIF; Hypochromasia 1+ (5-14) /OIF; Platelet Estimate NORMAL (NORMAL); Platelet Morphology Comment NORMAL; Polychromasia 2+ (3-5) /OIF; RBC Morphology NOTED
[2022-07-14 06:54] LABS: Lactate Dehydrogenase 121 U/L (122-220)
[2022-07-14 06:57] LABS: Fibrinogen 576 MG/DL (259-690); INTERNATIONAL NORM RATIO 1.2 (0.9-1.1); Prothrombin Time 13.9 SEC (10.0-13.1)
[2022-07-14 07:00] LABS: Partial Thromboplastin Time 30.3 SEC (26.0-36.4)
[2022-07-14] MEDS: Chlorhexidine Gluc Oral Rinse 15 ML MOUTHWASH BUCCAL ×3 (08:06→20:11)
[2022-07-14] MEDS: Furosemide 40 MG/4 ML VIAL IVPUSH (08:06)
[2022-07-14] MEDS: Famotidine/PF 20 MG/2 ML VIAL IVPUSH (08:06)
[2022-07-14] MEDS: Nystatin Powder 15 GM BOTTLE 1 APPL TOPICAL ×2 (08:09→20:12)
[2022-07-14] MEDS: 0.9 % Sodium Chloride Flush 3 ML SYRINGE IVFLUSH ×3 (08:09→22:22)
--- NOTE | 2022-07-14 08:53 | P.PNGS_ITS ---
Subjective Subjective Date of Service: 07/14/22 <Tiffanie Villeda PA-C - Last Filed: 07/14/22 09:07> 07/14/22 <Deandre Hagan MD - Last Filed: 07/14/22 11:10> Interval history: Did fairly well overnight per [employer]. Remains sedated, intubated on vent. <Tiffanie Villeda PA-C - Last Filed: 07/14/22 09:07> Physical Exam Vital Signs: Vital Signs: Last Vital Signs Temp 98.7 F 07/14/22 08:00 Pulse 129 H 07/14/22 08:00 Resp 20 07/14/22 08:00 BP 134/75 07/14/22 08:00 Pulse Ox 97 07/14/22 08:00 O2 Del Method 07/14/22 08:00 O2 Flow Rate 100 07/13/22 19:12 FiO2 30 07/14/22 08:00 Oxygen Flow Rate 35 06/13/22 21:00 BMI result Body Mass Index 35.7 <Tiffanie Villeda PA-C - Last Filed: 07/14/22 09:07> Const: General: no acute distress <Tiffanie Villeda PA-C - Last Filed: 07/14/22 09:07> HEENT: Other: NGT in place, bilious output <Tiffanie Villeda PA-C - Last Filed: 07/14/22 09:07> Resp: Other: intubated on vent <Tiffanie Villeda PA-C - Last Filed: 07/14/22 09:07> GI: Other: ileostomy pink, bilious output in appliance <Tiffanie Villeda PA-C - Last Filed: 07/14/22 09:07> Inspection: Yes incision (dressing intact, dry) <NAVDEEP Soto Last Filed: 07/14/22 09:07> Palpation (GI): Soft to palpation <NAVDEEP Soto Last Filed: 07/14/22 09:07> Percussion: Yes normal to percussion <NAVDEEP Soto Last Filed: 07/14/22 09:07> Skin: General skin exam: pallor <Tiffanie Villeda PA-C - Last Filed: 07/14/22 09:07> Extrem: General: Yes pedal edema <Tiffanie Villeda PA-C - Last Filed: 07/14/22 09:07> Objective Data Active Medications Chlorhexidine Gluconate (Chlorhexidine Gluc Oral Rinse 15 Ml Mouthwash) 15 ml BUCCAL TID [facility] Last Admin: 07/14/22 08:06 Dose: 15 ml Documented By: ISH Heparin Sodium (Porcine) 50 (units/ Sodium Chloride 5 ml) 0 units IVFLUSH TID [facility] Last Admin: 07/13/22 20:48 Dose: Not Given Documented By: MARIAJOSE Non-Admin Reason: IV Running Famotidine (Famotidine/Pf 20 Mg/2 Ml Vial) 20 mg IVPUSH DAILY [facility] Last Admin: 07/14/22 08:06 Dose: 20 mg Documented By: ISH Metronidazole (Flagyl) 500 mg in 100 mls @ 100 mls/hr IV Q8H [facility] Last Infusion: 07/14/22 07:19 Dose: 0 mls/hr Documented By: ISH Voriconazole 200 mg/ Sodium (Chloride) 100 mls @ 50 mls/hr IV Q12H [facility] Last Infusion: 07/13/22 23:38 Dose: 0 mls/hr Documented By: MARIAJOSE Propofol (Diprivan) 1,000 mg in 100 mls @ 0 mls/hr IVCONT .Q0M [facility]; Protocol Last Admin: 07/14/22 08:06 Dose: 40 mcg/kg/min, 21.7 mls/hr Documented By: ISH Fentanyl (Sublimaze/Ns) 1,000 mcg in 100 mls @ 0 mls/hr IVCONT .Q0M GAUDENCIO; Protocol Last Titration: 07/14/22 01:47 Dose: 50 mcg/hr, 5 mls/hr Documented By: MARIAJOSE Vasopressin 20 unit/ Sodium (Chloride) 101 mls @ 12.12 mls/hr IVCONT .Q8H20M [facility] Last Admin: 07/14/22 06:12 Dose: 0.04 unit/min, 12.12 mls/hr Documented By: MIS Norepinephrine Bitartrate (Levophed) 8 mg in 250 mls @ 0 mls/hr IVCONT .Q0M [facility]; Protocol Last Admin: 07/14/22 01:44 Dose: 0.05 mcg/kg/min, 8.48 mls/hr Documented By: MARIAJOSE Naloxone HCl (Naloxone Hcl 0.4 Mg/Ml Vial) 0.2 mg IVPUSH Q2M PRN PRN Reason: Excessive sedation or RR < 8 Patient Own Med ( (Ajovy 1.5 Ml)) 1.5 ml SUBCUT Q30D [facility] Last Admin: 06/30/22 13:56 Dose: 1.5 ml Documented By: LAKESHIA Nystatin (Nystatin Powder 15 Gm Bottle) 1 appl TOPICAL BID [facility]; Protocol Last Admin: 07/14/22 08:09 Dose: 1 appl Documented By: ISH Ondansetron HCl (Ondansetron Hcl 4 Mg/2 Ml Vial) 4 mg IVPUSH Q6H PRN PRN Reason: Nausea Last Admin: 07/13/22 05:00 Dose: 4 mg Documented By: ALLISON Pharmacy Consult (Consult Rx Perform Med Rec) 1 each MISCELLANE ONCE PRN PRN Reason: Consult order Sodium Chloride (0.9 % Sodium Chloride Flush 3 Ml Syringe) 3 ml IVFLUSH QSHIFT [facility] Last Admin: 07/14/22 08:09 Dose: 3 ml Documented By: ISH Sumatriptan Succinate (Sumatriptan Succinate 6 Mg/0.5 Ml Vial) 6 mg SUBCUT DAILY PRN PRN Reason: migraine headache Last Admin: 07/11/22 16:21 Dose: 6 mg Documented By: SANTOS <Tiffanie Villeda PA-C - Last Filed: 07/14/22 09:07> Labs CBC & Chem 7: : 07/14/22 05:12 07/14/22 05:12 <Tiffanie Villeda PA-C - Last Filed: 07/14/22 09:07> Labs: Laboratory Results - last 24 hr 07/12/22 07/13/22 07/13/22 19:25 08:31 08:31 POC Hgb (Calc) POC Hct MCV 92.5 MCH 30.1 MCHC 32.6 RDW 17.8 H Plt Count 401 H MPV 9.7 Immature Gran % (Auto) Neut % (Auto) Lymph % (Auto) [place] % (Auto) Eos % (Auto) Baso % (Auto) Lymph # (Auto) [place] # (Auto) Eos # (Auto) Baso # (Auto) Abs Immat Gran (auto) Absolute Neuts (auto) Absolute Nucleated RBC 0.000 Nucleated RBC % (auto) 0.0 Neutrophils % (Manual) Band Neutrophils % Lymphocytes % (Manual) Monocytes % (Manual) Abs Neuts (Manual) Lymphocytes # (Manual) Monocytes # (Manual) Platelet Estimate Plt Morphology Comment RBC Morphology Polychromasia Hypochromasia Acanthocytes (Spur) PT INR APTT Fibrinogen POC Std Base Excess POC O2 Sat (Calc) POC ABG pO2 POC ABG Total CO2 VBG pH VBG pCO2 VBG pO2 VBG HCO3 VBG O2 Saturation VBG Base Excess POC Capillary pH POC Capillary pCO2 POC Cap HCO3 (Calc) POC Sodium POC Potassium Anion Gap 17 Estim Creat Clear Calc 131.3 Estimated GFR > 60 POC Glucose Random Glucose 109 Lactic Acid Calcium 7.9 L Phosphorus Magnesium Total Bilirubin AST ALT Alkaline Phosphatase Lactate Dehydrogenase Total Protein Albumin Blood Type B Positive Antibody Screen NEGATIVE Crossmatch See Detail 07/13/22 07/13/22 07/13/22 08:31 15:11 16:01 POC Hgb (Calc) 6.8 L* 5.4 L* POC Hct 20 L* 16 L* MCV MCH MCHC RDW Plt Count MPV Immature Gran % (Auto) Neut % (Auto) Lymph % (Auto) [place] % (Auto) Eos % (Auto) Baso % (Auto) Lymph # (Auto) [place] # (Auto) Eos # (Auto) Baso # (Auto) Abs Immat Gran (auto) Absolute Neuts (auto) Absolute Nucleated RBC Nucleated RBC % (auto) Neutrophils % (Manual) Band Neutrophils % Lymphocytes % (Manual) Monocytes % (Manual) Abs Neuts (Manual) Lymphocytes # (Manual) Monocytes # (Manual) Platelet Estimate Plt Morphology Comment RBC Morphology Polychromasia Hypochromasia Acanthocytes (Spur) PT 13.2 H INR 1.1 APTT 34.5 Fibrinogen POC Std Base Excess -3 1 POC O2 Sat (Calc) 100 100 POC ABG pO2 337 H 338 H POC ABG Total CO2 25 26 VBG pH VBG pCO2 VBG pO2 VBG HCO3 VBG O2 Saturation VBG Base Excess POC Capillary pH 7.26 L 7.40 POC Capillary pCO2 53 H 41 POC Cap HCO3 (Calc) 24 25 POC Sodium 139 140 POC Potassium 3.9 3.8 Anion Gap Estim Creat Clear Calc Estimated GFR POC Glucose 159 H 152 H Random Glucose Lactic Acid Calcium Phosphorus Magnesium Total Bilirubin AST ALT Alkaline Phosphatase Lactate Dehydrogenase Total Protein Albumin Blood Type Antibody Screen Crossmatch 07/13/22 07/13/22 07/13/22 19:30 19:30 19:30 POC Hgb (Calc) POC Hct MCV 87.4 D MCH 29.7 MCHC 33.9 RDW 16.2 H Plt Count 198 D MPV 9.2 L Immature Gran % (Auto) 2.7 H Neut % (Auto) 73.2 H Lymph % (Auto) 17.0 L [place] % (Auto) 6.4 Eos % (Auto) 0.4 Baso % (Auto) 0.3 Lymph # (Auto) 2.1 [place] # (Auto) 0.8 Eos # (Auto) 0.1 Baso # (Auto) 0.0 Abs Immat Gran (auto) 0.33 H Absolute Neuts (auto) 8.9 H Absolute Nucleated RBC 0.000 Nucleated RBC % (auto) 0.0 Neutrophils % (Manual) Band Neutrophils % Lymphocytes % (Manual) Monocytes % (Manual) Abs Neuts (Manual) Lymphocytes # (Manual) Monocytes # (Manual) Platelet Estimate Plt Morphology Comment RBC Morphology Polychromasia Hypochromasia Acanthocytes (Spur) PT INR APTT Fibrinogen POC Std Base Excess POC O2 Sat (Calc) POC ABG pO2 POC ABG Total CO2 VBG pH VBG pCO2 VBG pO2 VBG HCO3 VBG O2 Saturation VBG Base Excess POC Capillary pH POC Capillary pCO2 POC Cap HCO3 (Calc) POC Sodium POC Potassium Anion Gap 14 Estim Creat Clear Calc 140.1 Estimated GFR > 60 POC Glucose Random Glucose 185 H Lactic Acid 1.1 Calcium 8.7 D Phosphorus 5.7 H Magnesium 1.5 L Total Bilirubin 1.4 H AST 9 ALT 8 Alkaline Phosphatase 41 D Lactate Dehydrogenase Total Protein 3.2 L D Albumin 1.8 L D Blood Type Antibody Screen Crossmatch 07/13/22 07/14/22 07/14/22 19:35 05:12 05:12 POC Hgb (Calc) POC Hct MCV 88.1 MCH 30.0 MCHC 34.1 RDW 17.2 H Plt Count 244 MPV 9.7 Immature Gran % (Auto) Cancelled Neut % (Auto) Cancelled Lymph % (Auto) Cancelled [place] % (Auto) Cancelled Eos % (Auto) Cancelled Baso % (Auto) Cancelled Lymph # (Auto) Cancelled [place] # (Auto) Cancelled Eos # (Auto) Cancelled Baso # (Auto) Cancelled Abs Immat Gran (auto) Cancelled Absolute Neuts (auto) Cancelled Absolute Nucleated RBC 0.000 Nucleated RBC % (auto) 0.0 Neutrophils % (Manual) 64 Band Neutrophils % 22 H Lymphocytes % (Manual) 10 L Monocytes % (Manual) 4 Abs Neuts (Manual) 10.8 H Lymphocytes # (Manual) 1.3 Monocytes # (Manual) 0.5 Platelet Estimate NORMAL Plt Morphology Comment NORMAL RBC Morphology NOTED Polychromasia 2+ (3-5) Hypochromasia 1+ (5-14) Acanthocytes (Spur) 2+ (3-5) PT INR APTT Fibrinogen POC Std Base Excess POC O2 Sat (Calc) POC ABG pO2 POC ABG Total CO2 VBG pH 7.41 VBG pCO2 31 VBG pO2 240 VBG HCO3 20 L VBG O2 Saturation 99.0 VBG Base Excess -3.1 POC Capillary pH POC Capillary pCO2 POC Cap HCO3 (Calc) POC Sodium POC Potassium Anion Gap 17 Estim Creat Clear Calc 126.1 Estimated GFR > 60 POC Glucose Random Glucose 187 H Lactic Acid Calcium 8.5 Phosphorus 3.9 Magnesium 1.9 Total Bilirubin 0.7 AST 6 ALT < 6 Alkaline Phosphatase 34 L Lactate Dehydrogenase Total Protein 3.9 L D Albumin 2.6 L D Blood Type Antibody Screen Crossmatch 07/14/22 07/14/22 07/14/22 05:24 06:31 06:31 POC Hgb (Calc) POC Hct MCV MCH MCHC RDW Plt Count MPV Immature Gran % (Auto) Neut % (Auto) Lymph % (Auto) [place] % (Auto) Eos % (Auto) Baso % (Auto) Lymph # (Auto) [place] # (Auto) Eos # (Auto) Baso # (Auto) Abs Immat Gran (auto) Absolute Neuts (auto) Absolute Nucleated RBC Nucleated RBC % (auto) Neutrophils % (Manual) Band Neutrophils % Lymphocytes % (Manual) Monocytes % (Manual) Abs Neuts (Manual) Lymphocytes # (Manual) Monocytes # (Manual) Platelet Estimate Plt Morphology Comment RBC Morphology Polychromasia Hypochromasia Acanthocytes (Spur) PT 13.9 H INR 1.2 H APTT 30.3 Fibrinogen 576 POC Std Base Excess POC O2 Sat (Calc) POC ABG pO2 POC ABG Total CO2 VBG pH 7.41 VBG pCO2 29 VBG pO2 64 VBG HCO3 19 L VBG O2 Saturation 92.0 VBG Base Excess -4.4 POC Capillary pH POC Capillary pCO2 POC Cap HCO3 (Calc) POC Sodium POC Potassium Anion Gap Estim Creat Clear Calc Estimated GFR POC Glucose Random Glucose Lactic Acid Calcium Phosphorus Magnesium Total Bilirubin AST ALT Alkaline Phosphatase Lactate Dehydrogenase 121 L Total Protein Albumin Blood Type Antibody Screen Crossmatch <Tiffanie Villeda PA-C - Last Filed: 07/14/22 09:07> Microbiology Microbiology Results: Microbiology 07/13/22 16:31 Gram Stain - Final Abscess Rectal <Tiffanie Villeda PA-C - Last Filed: 07/14/22 09:07> Procedures Date of Service Date of Service: 07/14/22 <Tiffanie Villeda PA-C - Last Filed: 07/14/22 09:07> Arterial Line Size (Gauge): 16 <Tiffanie Villeda PA-C - Last Filed: 07/14/22 09:07> Progress Note: A&P Assessment and plan (1) Hemorrhagic shock: Status: Acute <Tiffanie Villeda PA-C - Last Filed: 07/14/22 09:07> (2) Megacolon, toxic: Status: Acute <Tiffanie Villeda PA-C - Last Filed: 07/14/22 09:07> (3) Colitis due to Clostridioides difficile: Status: Acute <Tiffanie Villeda PA-C - Last Filed: 07/14/22 09:07> (4) S/P colectomy: Status: Acute <Tiffanie Villeda PA-C - Last Filed: 07/14/22 09:07> Assessment and Plan: remains intubated, on ventilatory support on low-dose pressors urine output marginal sedated ileostomy well looking with output TPN ICU care family updated seen and examined independently <Deandre Hagan MD - Last Filed: 07/14/22 11:10> Assessment and Plan: 62 year female who had undergone laparotomy, Callie's procedure 05/18/22 for sigmoid perforation. She has had a slow recovery with fecal peritonitis but was doing much better with all therapy. She then developed C diff colitis which initially responded to treatment. She however began to worsen and her CAT scan showed diffuse colitis starting from the cecum all the way to the ostomy and she was placed on Dificid with no response and actually worsened and developed toxic megacolon. She was taken to the OR yesterday. She is now POD #1 s/p ex lap, subtotal colectomy with end ileostomy, resection of small bowel, extensive lysis of adhesions. She remains in the ICU intubated but stable. Her abdomen is benign and soft. The ileostomy is viable appearing with small amt of bilious output. NGT with scanty output, keep in place for now as she will likely develop an ileus. Consider TPN. Remainder of care per ICU care team. <Tiffanie Villeda PA-C - Last Filed: 07/14/22 09:07> Time Spent With Patient Time: Total time spent is greater than 50% in coordination of care (as documented) at patient's floor/unit and/or counseling patient: <Tiffanie Villeda PA-C - Last Filed: 07/14/22 09:07> Quality Stroke Does the patient have a stroke diagnosis?: No <NAVDEEP Soto Last Filed: 07/14/22 09:07> VTE Prior VTE?: No <Tiffanie Villeda PA-C - Last Filed: 07/14/22 09:07> VTE Risk Level:: Medical - moderate - high <NAVDEEP Soto Last Filed: 07/14/22 09:07> VTE Device Contraindication: N/A - Device Ordered <NAVDEEP Soto Last Filed: 07/14/22 09:07> VTE Drug Contraindication: N/A - Med Ordered <NAVDEEP Soto Last Filed: 07/14/22 09:07>
[2022-07-14] MEDS: Heparin Sodium,Porcine Flush 50 UNITS, 0.9 % Sodium Chloride Flush 5 ML IVFLUSH ×2 (09:25→14:12)
[2022-07-14] MEDS: fentaNYL citrate/NS 1,000 MCG/100 ML PLAST..BAG 5 MCG IVCONT (09:25)
[2022-07-14] MEDS: Voriconazole 200 MG in 0.9 % Sodium Chloride 100 ML 50 MG IV ×2 (09:26→22:00)
[2022-07-14 09:58] LABS: OBS Int Ctl Valid YES; OBS1 POSITIVE (NEGATIVE)
--- NOTE | 2022-07-14 11:01 | MHC.CLN ---
PT IS INTUBATED AND SEDATED DISCUSSED PLAN WITH MD FACE TO FACE; MD TO PLACE DEDICATED CENTRAL LINE FOR TPN TODAY (NURSE CATRACHO ALSO AWARE) RECOMMEND D15AA5 AT 35ML/HR TODAY (07/14) TO PROVIDE 596KCALS (1168KCALS WITH SEDATION), 42G PROTEIN DISCUSSED WITH PHARMACY REPLETE LYTES NEEDED DAY 2 (07/15) RECOMMEND INCREASING FORMULA TO D15AA5 AT 55ML/HR TO PROVIDE 937KCALS (1509KCALS WITH SEDATION), 66G PROTEIN REPLETE LYTES NEEDED DAY 3 (07/16) RECOMMEND INCREASING FORMULA TO D15AA5 AT 75ML/HR TO PROVIDE 1278KCALS (1850KCALS WITH SEDATION), 90G PROTEIN (1.4G/KG) REPLETE LYTES NEEDED; HOLD LIPIDS IF PT CONTINUES TO RECEIVE PROPOFOL CONSULT RD VIA TIGER TEXT IF NEEDED OVER WEEKEND SEE ALSO FULL CLINICAL NUTRITION ASSESSMENT
[2022-07-14 11:53] LABS: Hemoglobin 7.1 g/dl (12.0-16.0); Mean Corpuscular Hemoglobin 29.7 pg (27.0-33.0); Mean Corpuscular Volume 87.4 fL (80.0-98.0); Mean Platelet Volume 10.1 fL (9.4-12.3); Platelet Count 242 X10*3/uL (160-400); Red Blood Count 2.39 X10*6/uL (4.20-5.50); Red Cell Distribution Width 17.6 % (11.0-16.0); White Blood Count 11.1 X10*3/uL (4.8-10.8)
[2022-07-14 11:59] LABS: Hematocrit 20.9 % (37.0-47.0)
[2022-07-14 12:10] LABS: Anion Gap 16 (12-20); Blood Urea Nitrogen 8 mg/dL (9-16); Calcium 8.3 mg/dL (8.4-10.2); Carbon Dioxide 20 mmol/L (22-29); Chloride 108 mmol/L (96-108); Creatinine Clr Calc Pharmacy 129.5; Estimated Glomerular Filt Rate > 60; Glucose Random 173 mg/dL (60-115); Potassium 3.1 mmol/L (3.3-5.1); Sodium 141 mmol/L (135-145)
--- NOTE | 2022-07-14 13:23 | HO.POSTANES ---
Post Anesthesia Evaluation Post Anesthesia Evaluation Vital Signs: Vital Signs Temp Pulse Resp BP Pulse Ox O2 Del Method FiO2 07/14/22 12:00 30 07/14/22 11:57 30 07/14/22 11:20 132 H 181/81 H 07/14/22 11:02 129 H 150/81 H 07/14/22 09:12 30 07/14/22 08:00 30 07/14/22 13:00 135 H 20 123/72 95 Mechanical Ventilation 30 07/14/22 12:00 98.2 F 133 H 20 115/69 95 Mechanical Ventilation 30 07/14/22 11:00 130 H 18 154/83 H 97 Mechanical Ventilation 30 07/14/22 10:00 128 H 20 154/82 H 97 Mechanical Ventilation 30 07/14/22 09:00 129 H 19 138/82 100 Mechanical Ventilation 30 07/14/22 08:00 98.7 F 129 H 20 134/75 97 Mechanical Ventilation 30 07/14/22 07:00 130 H 24 H 101/89 94 Mechanical Ventilation 30 07/14/22 05:04 30 07/14/22 04:00 35 07/14/22 01:47 97/48 L 07/14/22 01:44 126 H 97/53 L 07/14/22 06:00 98.6 F 129 H 19 109/99 H 98 Mechanical Ventilation 30 07/14/22 04:57 129 H 19 111/71 99 Mechanical Ventilation 30 07/14/22 03:53 127 H 19 120/73 99 Mechanical Ventilation 30 07/14/22 03:00 126 H 18 131/68 99 Mechanical Ventilation 30 07/14/22 01:55 98.7 F 126 H 18 123/60 98 Mechanical Ventilation 30 Anesthesia: General Endotracheal-GETA (still intubated) Mental Status: Sedated Pain Control: Satisfactory Nausea/Vomiting: None Hydration: Adequate Anesthesia-Related Issues: No Anes. Related Issues
--- NOTE | 2022-07-14 13:30 | PM.CCPN ---
Subjective Subjective Date of Service: 07/14/22 Interval History: 62-year-old female with underlying Crohn's disease who originally presented here with perforated sigmoid colon and extensive fecal soilage of the peritoneum and and had the disease segment resected and ostomy that was brought out and had a very prolonged recovery because of multiple abscesses that were drained by Interventional Radiology and for prolonged time was on TPN and had multi organism peritonitis and sepsis currently remains on voriconazole and just underwent a subtotal colectomy because she developed fulminant Clostridium difficile colitis and currently the ileostomy is still putting out a blackish exudate which we retested and and was negative for C diff but she will remain on the IV Flagyl because they noted several micro perforations of the colon and it today had very extensive sinus tachycardia intractably at 140 and the the fluid from the ostomy is guaiac-positive and she did drop her hemoglobin a g down to 6.2 which I am sure in large part is the issue because I did bedside echo when she clearly has normal but hyperdynamic left ventricular function and no significant right ventricular dysfunction no valve disease and so a 2 unit blood transfusion was was given with considerable resolution of the tachycardia and pending the results of the C diff I gave 1 dose of fidaxomicin and cover the abdominal soilage with 1 dose of linezolid and 1 dose of Levaquin in addition to the Flagyl Renal function numbers urine output remained excellent and at 1 point it measuring the CVP after almost 8 L of crystalloid and 8 units of red cells 1 unit of apheresis platelets and 7 or 8 units of fresh frozen plasma and at least 1 or 2 runs of cryoprecipitate we had a CVP in the high 20s for which 140 mg dose of Lasix was given with with the L and half diuresis and CVP fell below 10 and she was able to be wean to an FiO2 between 30 and 40% with excellent oxygen saturation and low minutes ventilatory requirement Critical Care Time (minutes): 60 Physical Exam Vital Signs: Vital Signs: Last Vital Signs Temp 98.2 F 07/14/22 12:00 Pulse 135 H 07/14/22 13:00 Resp 20 07/14/22 13:00 BP 123/72 07/14/22 13:00 Pulse Ox 95 07/14/22 13:00 O2 Del Method 07/14/22 13:00 O2 Flow Rate 100 07/13/22 19:12 FiO2 30 07/14/22 13:00 Oxygen Flow Rate 35 06/13/22 21:00 BMI result Body Mass Index 35.7 No temperature spikes she is sedated and intubated Bedside echo of hyperdynamic left ventricle X-ray with platelike atelectasis no adventitious sounds Objective Data Labs CBC & Chem 7: 07/14/22 18:14 07/14/22 18:14 Labs: Laboratory Results - last 24 hr 07/12/22 07/13/22 07/13/22 19:25 08:31 15:11 WBC RBC Hgb POC Hgb (Calc) 6.8 L* Hct POC Hct 20 L* MCV MCH MCHC RDW Plt Count MPV Immature Gran % (Auto) Neut % (Auto) Lymph % (Auto) [place] % (Auto) Eos % (Auto) Baso % (Auto) Lymph # (Auto) [place] # (Auto) Eos # (Auto) Baso # (Auto) Abs Immat Gran (auto) Absolute Neuts (auto) Absolute Nucleated RBC Nucleated RBC % (auto) Neutrophils % (Manual) Band Neutrophils % Lymphocytes % (Manual) Monocytes % (Manual) Abs Neuts (Manual) Lymphocytes # (Manual) Monocytes # (Manual) Platelet Estimate Plt Morphology Comment RBC Morphology Polychromasia Hypochromasia Acanthocytes (Spur) Smear Path Review PT INR APTT Fibrinogen POC Std Base Excess -3 POC O2 Sat (Calc) 100 POC ABG pO2 337 H POC ABG Total CO2 25 VBG pH VBG pCO2 VBG pO2 VBG HCO3 VBG O2 Saturation VBG Base Excess POC Capillary pH 7.26 L POC Capillary pCO2 53 H POC Cap HCO3 (Calc) 24 POC Sodium 139 Sodium POC Potassium 3.9 Potassium Chloride Carbon Dioxide Anion Gap BUN Creatinine Estim Creat Clear Calc Estimated GFR POC Glucose 159 H Random Glucose Lactic Acid Calcium Phosphorus Magnesium Total Bilirubin AST ALT Alkaline Phosphatase Lactate Dehydrogenase Total Protein Albumin Stool Occult Blood Blood Type B Positive Antibody Screen NEGATIVE Crossmatch See Detail 07/13/22 07/13/22 07/13/22 16:01 19:30 19:30 WBC 12.2 H RBC 3.10 L D Hgb 9.2 L D POC Hgb (Calc) 5.4 L* Hct 27.1 L D POC Hct 16 L* MCV 87.4 D MCH 29.7 MCHC 33.9 RDW 16.2 H Plt Count 198 D MPV 9.2 L Immature Gran % (Auto) 2.7 H Neut % (Auto) 73.2 H Lymph % (Auto) 17.0 L [place] % (Auto) 6.4 Eos % (Auto) 0.4 Baso % (Auto) 0.3 Lymph # (Auto) 2.1 [place] # (Auto) 0.8 Eos # (Auto) 0.1 Baso # (Auto) 0.0 Abs Immat Gran (auto) 0.33 H Absolute Neuts (auto) 8.9 H Absolute Nucleated RBC 0.000 Nucleated RBC % (auto) 0.0 Neutrophils % (Manual) Band Neutrophils % Lymphocytes % (Manual) Monocytes % (Manual) Abs Neuts (Manual) Lymphocytes # (Manual) Monocytes # (Manual) Platelet Estimate Plt Morphology Comment RBC Morphology Polychromasia Hypochromasia Acanthocytes (Spur) Smear Path Review PT INR APTT Fibrinogen POC Std Base Excess 1 POC O2 Sat (Calc) 100 POC ABG pO2 338 H POC ABG Total CO2 26 VBG pH VBG pCO2 VBG pO2 VBG HCO3 VBG O2 Saturation VBG Base Excess POC Capillary pH 7.40 POC Capillary pCO2 41 POC Cap HCO3 (Calc) 25 POC Sodium 140 Sodium 139 POC Potassium 3.8 Potassium 4.1 Chloride 109 H Carbon Dioxide 20 L Anion Gap 14 BUN 8 L Creatinine 0.45 L Estim Creat Clear Calc 140.1 Estimated GFR > 60 POC Glucose 152 H Random Glucose 185 H Lactic Acid Calcium 8.7 D Phosphorus 5.7 H Magnesium 1.5 L Total Bilirubin 1.4 H AST 9 ALT 8 Alkaline Phosphatase 41 D Lactate Dehydrogenase Total Protein 3.2 L D Albumin 1.8 L D Stool Occult Blood Blood Type Antibody Screen Crossmatch 07/13/22 07/13/22 07/14/22 19:30 19:35 05:12 WBC RBC Hgb POC Hgb (Calc) Hct POC Hct MCV MCH MCHC RDW Plt Count MPV Immature Gran % (Auto) Neut % (Auto) Lymph % (Auto) [place] % (Auto) Eos % (Auto) Baso % (Auto) Lymph # (Auto) [place] # (Auto) Eos # (Auto) Baso # (Auto) Abs Immat Gran (auto) Absolute Neuts (auto) Absolute Nucleated RBC Nucleated RBC % (auto) Neutrophils % (Manual) Band Neutrophils % Lymphocytes % (Manual) Monocytes % (Manual) Abs Neuts (Manual) Lymphocytes # (Manual) Monocytes # (Manual) Platelet Estimate Plt Morphology Comment RBC Morphology Polychromasia Hypochromasia Acanthocytes (Spur) Smear Path Review PT INR APTT Fibrinogen POC Std Base Excess POC O2 Sat (Calc) POC ABG pO2 POC ABG Total CO2 VBG pH 7.41 VBG pCO2 31 VBG pO2 240 VBG HCO3 20 L VBG O2 Saturation 99.0 VBG Base Excess -3.1 POC Capillary pH POC Capillary pCO2 POC Cap HCO3 (Calc) POC Sodium Sodium 140 POC Potassium Potassium 3.5 Chloride 108 Carbon Dioxide 19 L Anion Gap 17 BUN 9 Creatinine 0.50 Estim Creat Clear Calc 126.1 Estimated GFR > 60 POC Glucose Random Glucose 187 H Lactic Acid 1.1 Calcium 8.5 Phosphorus 3.9 Magnesium 1.9 Total Bilirubin 0.7 AST 6 ALT < 6 Alkaline Phosphatase 34 L Lactate Dehydrogenase Total Protein 3.9 L D Albumin 2.6 L D Stool Occult Blood Blood Type Antibody Screen Crossmatch 07/14/22 07/14/22 07/14/22 05:12 05:24 06:31 WBC 12.6 H RBC 2.43 L D Hgb 7.3 L D POC Hgb (Calc) Hct 21.4 L D POC Hct MCV 88.1 MCH 30.0 MCHC 34.1 RDW 17.2 H Plt Count 244 MPV 9.7 Immature Gran % (Auto) Cancelled Neut % (Auto) Cancelled Lymph % (Auto) Cancelled [place] % (Auto) Cancelled Eos % (Auto) Cancelled Baso % (Auto) Cancelled Lymph # (Auto) Cancelled [place] # (Auto) Cancelled Eos # (Auto) Cancelled Baso # (Auto) Cancelled Abs Immat Gran (auto) Cancelled Absolute Neuts (auto) Cancelled Absolute Nucleated RBC 0.000 Nucleated RBC % (auto) 0.0 Neutrophils % (Manual) 64 Band Neutrophils % 22 H Lymphocytes % (Manual) 10 L Monocytes % (Manual) 4 Abs Neuts (Manual) 10.8 H Lymphocytes # (Manual) 1.3 Monocytes # (Manual) 0.5 Platelet Estimate NORMAL Plt Morphology Comment NORMAL RBC Morphology NOTED Polychromasia 2+ (3-5) Hypochromasia 1+ (5-14) Acanthocytes (Spur) 2+ (3-5) Smear Path Review PT 13.9 H INR 1.2 H APTT 30.3 Fibrinogen 576 POC Std Base Excess POC O2 Sat (Calc) POC ABG pO2 POC ABG Total CO2 VBG pH 7.41 VBG pCO2 29 VBG pO2 64 VBG HCO3 19 L VBG O2 Saturation 92.0 VBG Base Excess -4.4 POC Capillary pH POC Capillary pCO2 POC Cap HCO3 (Calc) POC Sodium Sodium POC Potassium Potassium Chloride Carbon Dioxide Anion Gap BUN Creatinine Estim Creat Clear Calc Estimated GFR POC Glucose Random Glucose Lactic Acid Calcium Phosphorus Magnesium Total Bilirubin AST ALT Alkaline Phosphatase Lactate Dehydrogenase Total Protein Albumin Stool Occult Blood Blood Type Antibody Screen Crossmatch 07/14/22 07/14/22 07/14/22 06:31 09:22 11:29 WBC 11.1 H RBC 2.39 L Hgb 7.1 L POC Hgb (Calc) Hct 20.9 L* POC Hct MCV 87.4 MCH 29.7 MCHC 34.0 RDW 17.6 H Plt Count 242 MPV 10.1 Immature Gran % (Auto) Neut % (Auto) Lymph % (Auto) [place] % (Auto) Eos % (Auto) Baso % (Auto) Lymph # (Auto) [place] # (Auto) Eos # (Auto) Baso # (Auto) Abs Immat Gran (auto) Absolute Neuts (auto) Absolute Nucleated RBC 0.000 Nucleated RBC % (auto) 0.0 Neutrophils % (Manual) Band Neutrophils % Lymphocytes % (Manual) Monocytes % (Manual) Abs Neuts (Manual) Lymphocytes # (Manual) Monocytes # (Manual) Platelet Estimate Plt Morphology Comment RBC Morphology Polychromasia Hypochromasia Acanthocytes (Spur) Smear Path Review PT INR APTT Fibrinogen POC Std Base Excess POC O2 Sat (Calc) POC ABG pO2 POC ABG Total CO2 VBG pH VBG pCO2 VBG pO2 VBG HCO3 VBG O2 Saturation VBG Base Excess POC Capillary pH POC Capillary pCO2 POC Cap HCO3 (Calc) POC Sodium Sodium POC Potassium Potassium Chloride Carbon Dioxide Anion Gap BUN Creatinine Estim Creat Clear Calc Estimated GFR POC Glucose Random Glucose Lactic Acid Calcium Phosphorus Magnesium Total Bilirubin AST ALT Alkaline Phosphatase Lactate Dehydrogenase 121 L Total Protein Albumin Stool Occult Blood POSITIVE Blood Type Antibody Screen Crossmatch 07/14/22 11:29 WBC RBC Hgb POC Hgb (Calc) Hct POC Hct MCV MCH MCHC RDW Plt Count MPV Immature Gran % (Auto) Neut % (Auto) Lymph % (Auto) [place] % (Auto) Eos % (Auto) Baso % (Auto) Lymph # (Auto) [place] # (Auto) Eos # (Auto) Baso # (Auto) Abs Immat Gran (auto) Absolute Neuts (auto) Absolute Nucleated RBC Nucleated RBC % (auto) Neutrophils % (Manual) Band Neutrophils % Lymphocytes % (Manual) Monocytes % (Manual) Abs Neuts (Manual) Lymphocytes # (Manual) Monocytes # (Manual) Platelet Estimate Plt Morphology Comment RBC Morphology Polychromasia Hypochromasia Acanthocytes (Spur) Smear Path Review PT INR APTT Fibrinogen POC Std Base Excess POC O2 Sat (Calc) POC ABG pO2 POC ABG Total CO2 VBG pH VBG pCO2 VBG pO2 VBG HCO3 VBG O2 Saturation VBG Base Excess POC Capillary pH POC Capillary pCO2 POC Cap HCO3 (Calc) POC Sodium Sodium 141 POC Potassium Potassium 3.1 L Chloride 108 Carbon Dioxide 20 L Anion Gap 16 BUN 8 L Creatinine 0.49 L Estim Creat Clear Calc 129.5 Estimated GFR > 60 POC Glucose Random Glucose 173 H Lactic Acid Calcium 8.3 L Phosphorus Magnesium Total Bilirubin AST ALT Alkaline Phosphatase Lactate Dehydrogenase Total Protein Albumin Stool Occult Blood Blood Type Antibody Screen Crossmatch Microbiology Microbiology Results: Microbiology 07/13/22 16:31 Abscess Rectal Gram Stain - Final 07/13/22 16:31 Abscess Rectal Routine Culture - Preliminary Culture in progress. 06/02/22 Unknown Abscess Intra-abdominal Fungal Identification - Final Verónica dubliniensis 06/22/22 16:30 Abdominal Fluid Gram Stain - Final 06/22/22 16:30 Abdominal Fluid Routine Culture - Final Ver[place]ica albicans 06/22/22 16:30 Abdominal Fluid Anaerobic Culture - Final NO GROWTH AFTER 5 DAYS 06/30/22 07:05 Blood - Venous Blood Culture - Final Corynebacterium species 07/01/22 16:44 Blood - Venous Blood Culture - Final No growth after 5 days. 07/01/22 16:45 Blood - Venous Blood Culture - Final No growth after 5 days. 06/30/22 07:05 Blood - Venous Blood Culture - Final No growth after 5 days. 06/27/22 01:16 Blood - Venous Blood Culture - Final No growth after 5 days. 06/27/22 01:16 Blood - Venous Blood Culture - Final No growth after 5 days. 06/24/22 06:14 Blood - Venous Blood Culture - Final No growth after 5 days. 06/24/22 06:14 Blood - Venous Blood Culture - Final No growth after 5 days. 06/03/22 15:28 Blood - Subclavian Blood Culture - Final No growth after 5 days. 06/03/22 06:15 Blood - Venous Blood Culture - Final No growth after 5 days. 06/03/22 06:15 Blood - Venous Blood Culture - Final No growth after 5 days. 06/02/22 Unknown Peritoneal Fluid Gram Stain - Final 06/02/22 Unknown Peritoneal Fluid Routine Culture - Final Verónica albicans 06/02/22 Unknown Peritoneal Fluid Anaerobic Culture - Final 05/29/22 15:14 Blood - Venous Blood Culture - Final No growth after 5 days. 05/29/22 15:13 Blood - Venous Blood Culture - Final No growth after 5 days. 05/29/22 05:14 Blood - Venous Blood Culture - Final No growth after 5 days. 05/29/22 05:14 Blood - Venous Blood Culture - Final No growth after 5 days. 06/02/22 Unknown Abscess Intra-abdominal Gram Stain - Final 06/02/22 Unknown Abscess Intra-abdominal Routine Culture - Final 06/02/22 Unknown Abscess Intra-abdominal Anaerobic Culture - Final 06/02/22 Unknown Abscess Intra-abdominal Gram Stain - Final 06/02/22 Unknown Abscess Intra-abdominal Routine Culture - Final 05/28/22 Unknown Peritoneal Fluid Gram Stain - Final 05/28/22 Unknown Peritoneal Fluid Anaerobic Culture - Final 05/28/22 Unknown Peritoneal Fluid Body Fluid Culture - Final Verónica dubliniensis 05/29/22 15:05 Sputum - Suctioned Gram Stain - Final 05/29/22 15:05 Sputum - Suctioned Sputum Culture - Final Verónica dubliniensis 05/28/22 16:47 Sputum - Suctioned Gram Stain - Final 05/28/22 16:47 Sputum - Suctioned Sputum Culture - Final Ver[place]ica albicans 05/23/22 Unknown Peritoneal Fluid Gram Stain - Final 05/23/22 Unknown Peritoneal Fluid Routine Culture - Final Escherichia coli 05/23/22 Unknown Peritoneal Fluid Anaerobic Culture - Final Clostridium perfringens Bacteroides thetaiotaomicron 05/19/22 08:49 Blood - Venous Blood Culture - Final No growth after 5 days. 05/19/22 08:49 Blood - Venous Blood Culture - Final No growth after 5 days. Progress Note: A&P Assessment and plan (1) S/P colectomy: Status: Acute (2) Hemorrhagic shock: Status: Acute (3) Megacolon, toxic: Status: Acute (4) Left upper extremity deep vein thrombosis: Status: Acute (5) Colitis due to Clostridioides difficile: Status: Acute (6) Acute respiratory failure with hypoxia: Status: Acute (7) Peritonitis: Status: Acute (8) Crohn's disease: Status: Acute (9) Status post colostomy: Status: Acute (10) Ileus following gastrointestinal surgery: Status: Acute (11) Thrombocytopenia: Status: Acute (12) Anemia: Status: Acute (13) Hypernatremia: Status: Acute (14) Septic shock: Status: Acute (15) Perforated viscus: Status: Acute Plan Awaiting a all culture results but with the C diff negativity from the small bowel ostomy will withhold any further fidaxomicin Transfuse as necessary at the very least to keep hemoglobin greater than 7-7.5 Initiating TPN because regard have a prolonged ileus Quality Stroke Does the patient have a stroke diagnosis?: No VTE Prior VTE?: No VTE Risk Level:: Medical - moderate - high VTE Device Contraindication: N/A - Device Ordered VTE Drug Contraindication: N/A - Med Ordered
[2022-07-14] MEDS: Potassium Chloride/H20 20 MEQ/100 ML PIGGYBACK 100 MEQ IV ×2 (14:13→15:50)
--- NOTE | 2022-07-14 15:18 | P.PNGI_ITS ---
Subjective Subjective Date of Service: 07/14/22 Interval History: intubated and sedated Critical Care Time (minutes): 0 Physical Exam Vital Signs: Vital Signs: Last Vital Signs Temp 98.2 F 07/14/22 12:00 Pulse 139 H 07/14/22 15:00 Resp 23 H 07/14/22 15:00 BP 115/62 07/14/22 15:00 Pulse Ox 95 07/14/22 15:00 O2 Del Method 07/14/22 15:00 O2 Flow Rate 100 07/13/22 19:12 FiO2 30 07/14/22 15:00 Oxygen Flow Rate 35 06/13/22 21:00 BMI result Body Mass Index 35.7 Eyes: Other: closed GI: Other: abdomen is soft Objective Data Labs CBC & Chem 7: 07/14/22 11:29 07/14/22 11:29 Labs: Laboratory Results - last 24 hr 07/12/22 07/13/22 07/13/22 19:25 08:31 15:11 WBC RBC Hgb POC Hgb (Calc) 6.8 L* Hct POC Hct 20 L* MCV MCH MCHC RDW Plt Count MPV Immature Gran % (Auto) Neut % (Auto) Lymph % (Auto) [place] % (Auto) Eos % (Auto) Baso % (Auto) Lymph # (Auto) [place] # (Auto) Eos # (Auto) Baso # (Auto) Abs Immat Gran (auto) Absolute Neuts (auto) Absolute Nucleated RBC Nucleated RBC % (auto) Neutrophils % (Manual) Band Neutrophils % Lymphocytes % (Manual) Monocytes % (Manual) Abs Neuts (Manual) Lymphocytes # (Manual) Monocytes # (Manual) Platelet Estimate Plt Morphology Comment RBC Morphology Polychromasia Hypochromasia Acanthocytes (Spur) Smear Path Review PT INR APTT Fibrinogen POC Std Base Excess -3 POC O2 Sat (Calc) 100 POC ABG pO2 337 H POC ABG Total CO2 25 VBG pH VBG pCO2 VBG pO2 VBG HCO3 VBG O2 Saturation VBG Base Excess POC Capillary pH 7.26 L POC Capillary pCO2 53 H POC Cap HCO3 (Calc) 24 POC Sodium 139 Sodium POC Potassium 3.9 Potassium Chloride Carbon Dioxide Anion Gap BUN Creatinine Estim Creat Clear Calc Estimated GFR POC Glucose 159 H Random Glucose Lactic Acid Calcium Phosphorus Magnesium Total Bilirubin AST ALT Alkaline Phosphatase Lactate Dehydrogenase Total Protein Albumin Stool Occult Blood Blood Type B Positive Antibody Screen NEGATIVE Crossmatch See Detail 07/13/22 07/13/22 07/13/22 16:01 19:30 19:30 WBC 12.2 H RBC 3.10 L D Hgb 9.2 L D POC Hgb (Calc) 5.4 L* Hct 27.1 L D POC Hct 16 L* MCV 87.4 D MCH 29.7 MCHC 33.9 RDW 16.2 H Plt Count 198 D MPV 9.2 L Immature Gran % (Auto) 2.7 H Neut % (Auto) 73.2 H Lymph % (Auto) 17.0 L [place] % (Auto) 6.4 Eos % (Auto) 0.4 Baso % (Auto) 0.3 Lymph # (Auto) 2.1 [place] # (Auto) 0.8 Eos # (Auto) 0.1 Baso # (Auto) 0.0 Abs Immat Gran (auto) 0.33 H Absolute Neuts (auto) 8.9 H Absolute Nucleated RBC 0.000 Nucleated RBC % (auto) 0.0 Neutrophils % (Manual) Band Neutrophils % Lymphocytes % (Manual) Monocytes % (Manual) Abs Neuts (Manual) Lymphocytes # (Manual) Monocytes # (Manual) Platelet Estimate Plt Morphology Comment RBC Morphology Polychromasia Hypochromasia Acanthocytes (Spur) Smear Path Review PT INR APTT Fibrinogen POC Std Base Excess 1 POC O2 Sat (Calc) 100 POC ABG pO2 338 H POC ABG Total CO2 26 VBG pH VBG pCO2 VBG pO2 VBG HCO3 VBG O2 Saturation VBG Base Excess POC Capillary pH 7.40 POC Capillary pCO2 41 POC Cap HCO3 (Calc) 25 POC Sodium 140 Sodium 139 POC Potassium 3.8 Potassium 4.1 Chloride 109 H Carbon Dioxide 20 L Anion Gap 14 BUN 8 L Creatinine 0.45 L Estim Creat Clear Calc 140.1 Estimated GFR > 60 POC Glucose 152 H Random Glucose 185 H Lactic Acid Calcium 8.7 D Phosphorus 5.7 H Magnesium 1.5 L Total Bilirubin 1.4 H AST 9 ALT 8 Alkaline Phosphatase 41 D Lactate Dehydrogenase Total Protein 3.2 L D Albumin 1.8 L D Stool Occult Blood Blood Type Antibody Screen Crossmatch 07/13/22 07/13/22 07/14/22 19:30 19:35 05:12 WBC RBC Hgb POC Hgb (Calc) Hct POC Hct MCV MCH MCHC RDW Plt Count MPV Immature Gran % (Auto) Neut % (Auto) Lymph % (Auto) [place] % (Auto) Eos % (Auto) Baso % (Auto) Lymph # (Auto) [place] # (Auto) Eos # (Auto) Baso # (Auto) Abs Immat Gran (auto) Absolute Neuts (auto) Absolute Nucleated RBC Nucleated RBC % (auto) Neutrophils % (Manual) Band Neutrophils % Lymphocytes % (Manual) Monocytes % (Manual) Abs Neuts (Manual) Lymphocytes # (Manual) Monocytes # (Manual) Platelet Estimate Plt Morphology Comment RBC Morphology Polychromasia Hypochromasia Acanthocytes (Spur) Smear Path Review PT INR APTT Fibrinogen POC Std Base Excess POC O2 Sat (Calc) POC ABG pO2 POC ABG Total CO2 VBG pH 7.41 VBG pCO2 31 VBG pO2 240 VBG HCO3 20 L VBG O2 Saturation 99.0 VBG Base Excess -3.1 POC Capillary pH POC Capillary pCO2 POC Cap HCO3 (Calc) POC Sodium Sodium 140 POC Potassium Potassium 3.5 Chloride 108 Carbon Dioxide 19 L Anion Gap 17 BUN 9 Creatinine 0.50 Estim Creat Clear Calc 126.1 Estimated GFR > 60 POC Glucose Random Glucose 187 H Lactic Acid 1.1 Calcium 8.5 Phosphorus 3.9 Magnesium 1.9 Total Bilirubin 0.7 AST 6 ALT < 6 Alkaline Phosphatase 34 L Lactate Dehydrogenase Total Protein 3.9 L D Albumin 2.6 L D Stool Occult Blood Blood Type Antibody Screen Crossmatch 07/14/22 07/14/22 07/14/22 05:12 05:24 06:31 WBC 12.6 H RBC 2.43 L D Hgb 7.3 L D POC Hgb (Calc) Hct 21.4 L D POC Hct MCV 88.1 MCH 30.0 MCHC 34.1 RDW 17.2 H Plt Count 244 MPV 9.7 Immature Gran % (Auto) Cancelled Neut % (Auto) Cancelled Lymph % (Auto) Cancelled [place] % (Auto) Cancelled Eos % (Auto) Cancelled Baso % (Auto) Cancelled Lymph # (Auto) Cancelled [place] # (Auto) Cancelled Eos # (Auto) Cancelled Baso # (Auto) Cancelled Abs Immat Gran (auto) Cancelled Absolute Neuts (auto) Cancelled Absolute Nucleated RBC 0.000 Nucleated RBC % (auto) 0.0 Neutrophils % (Manual) 64 Band Neutrophils % 22 H Lymphocytes % (Manual) 10 L Monocytes % (Manual) 4 Abs Neuts (Manual) 10.8 H Lymphocytes # (Manual) 1.3 Monocytes # (Manual) 0.5 Platelet Estimate NORMAL Plt Morphology Comment NORMAL RBC Morphology NOTED Polychromasia 2+ (3-5) Hypochromasia 1+ (5-14) Acanthocytes (Spur) 2+ (3-5) Smear Path Review PT 13.9 H INR 1.2 H APTT 30.3 Fibrinogen 576 POC Std Base Excess POC O2 Sat (Calc) POC ABG pO2 POC ABG Total CO2 VBG pH 7.41 VBG pCO2 29 VBG pO2 64 VBG HCO3 19 L VBG O2 Saturation 92.0 VBG Base Excess -4.4 POC Capillary pH POC Capillary pCO2 POC Cap HCO3 (Calc) POC Sodium Sodium POC Potassium Potassium Chloride Carbon Dioxide Anion Gap BUN Creatinine Estim Creat Clear Calc Estimated GFR POC Glucose Random Glucose Lactic Acid Calcium Phosphorus Magnesium Total Bilirubin AST ALT Alkaline Phosphatase Lactate Dehydrogenase Total Protein Albumin Stool Occult Blood Blood Type Antibody Screen Crossmatch 07/14/22 07/14/22 07/14/22 06:31 09:22 11:29 WBC 11.1 H RBC 2.39 L Hgb 7.1 L POC Hgb (Calc) Hct 20.9 L* POC Hct MCV 87.4 MCH 29.7 MCHC 34.0 RDW 17.6 H Plt Count 242 MPV 10.1 Immature Gran % (Auto) Neut % (Auto) Lymph % (Auto) [place] % (Auto) Eos % (Auto) Baso % (Auto) Lymph # (Auto) [place] # (Auto) Eos # (Auto) Baso # (Auto) Abs Immat Gran (auto) Absolute Neuts (auto) Absolute Nucleated RBC 0.000 Nucleated RBC % (auto) 0.0 Neutrophils % (Manual) Band Neutrophils % Lymphocytes % (Manual) Monocytes % (Manual) Abs Neuts (Manual) Lymphocytes # (Manual) Monocytes # (Manual) Platelet Estimate Plt Morphology Comment RBC Morphology Polychromasia Hypochromasia Acanthocytes (Spur) Smear Path Review PT INR APTT Fibrinogen POC Std Base Excess POC O2 Sat (Calc) POC ABG pO2 POC ABG Total CO2 VBG pH VBG pCO2 VBG pO2 VBG HCO3 VBG O2 Saturation VBG Base Excess POC Capillary pH POC Capillary pCO2 POC Cap HCO3 (Calc) POC Sodium Sodium POC Potassium Potassium Chloride Carbon Dioxide Anion Gap BUN Creatinine Estim Creat Clear Calc Estimated GFR POC Glucose Random Glucose Lactic Acid Calcium Phosphorus Magnesium Total Bilirubin AST ALT Alkaline Phosphatase Lactate Dehydrogenase 121 L Total Protein Albumin Stool Occult Blood POSITIVE Blood Type Antibody Screen Crossmatch 07/14/22 11:29 WBC RBC Hgb POC Hgb (Calc) Hct POC Hct MCV MCH MCHC RDW Plt Count MPV Immature Gran % (Auto) Neut % (Auto) Lymph % (Auto) [place] % (Auto) Eos % (Auto) Baso % (Auto) Lymph # (Auto) [place] # (Auto) Eos # (Auto) Baso # (Auto) Abs Immat Gran (auto) Absolute Neuts (auto) Absolute Nucleated RBC Nucleated RBC % (auto) Neutrophils % (Manual) Band Neutrophils % Lymphocytes % (Manual) Monocytes % (Manual) Abs Neuts (Manual) Lymphocytes # (Manual) Monocytes # (Manual) Platelet Estimate Plt Morphology Comment RBC Morphology Polychromasia Hypochromasia Acanthocytes (Spur) Smear Path Review PT INR APTT Fibrinogen POC Std Base Excess POC O2 Sat (Calc) POC ABG pO2 POC ABG Total CO2 VBG pH VBG pCO2 VBG pO2 VBG HCO3 VBG O2 Saturation VBG Base Excess POC Capillary pH POC Capillary pCO2 POC Cap HCO3 (Calc) POC Sodium Sodium 141 POC Potassium Potassium 3.1 L Chloride 108 Carbon Dioxide 20 L Anion Gap 16 BUN 8 L Creatinine 0.49 L Estim Creat Clear Calc 129.5 Estimated GFR > 60 POC Glucose Random Glucose 173 H Lactic Acid Calcium 8.3 L Phosphorus Magnesium Total Bilirubin AST ALT Alkaline Phosphatase Lactate Dehydrogenase Total Protein Albumin Stool Occult Blood Blood Type Antibody Screen Crossmatch Microbiology Microbiology Results: Microbiology 07/13/22 16:31 Abscess Rectal Gram Stain - Final 07/13/22 16:31 Abscess Rectal Routine Culture - Preliminary Culture in progress. 06/02/22 Unknown Abscess Intra-abdominal Fungal Identification - Final Verónica dubliniensis 06/22/22 16:30 Abdominal Fluid Gram Stain - Final 06/22/22 16:30 Abdominal Fluid Routine Culture - Final [place] albicans 06/22/22 16:30 Abdominal Fluid Anaerobic Culture - Final NO GROWTH AFTER 5 DAYS 06/30/22 07:05 Blood - Venous Blood Culture - Final Corynebacterium species 07/01/22 16:44 Blood - Venous Blood Culture - Final No growth after 5 days. 07/01/22 16:45 Blood - Venous Blood Culture - Final No growth after 5 days. 06/30/22 07:05 Blood - Venous Blood Culture - Final No growth after 5 days. 06/27/22 01:16 Blood - Venous Blood Culture - Final No growth after 5 days. 06/27/22 01:16 Blood - Venous Blood Culture - Final No growth after 5 days. 06/24/22 06:14 Blood - Venous Blood Culture - Final No growth after 5 days. 06/24/22 06:14 Blood - Venous Blood Culture - Final No growth after 5 days. 06/03/22 15:28 Blood - Subclavian Blood Culture - Final No growth after 5 days. 06/03/22 06:15 Blood - Venous Blood Culture - Final No growth after 5 days. 06/03/22 06:15 Blood - Venous Blood Culture - Final No growth after 5 days. 06/02/22 Unknown Peritoneal Fluid Gram Stain - Final 06/02/22 Unknown Peritoneal Fluid Routine Culture - Final Ver[place] albicans 06/02/22 Unknown Peritoneal Fluid Anaerobic Culture - Final 05/29/22 15:14 Blood - Venous Blood Culture - Final No growth after 5 days. 05/29/22 15:13 Blood - Venous Blood Culture - Final No growth after 5 days. 05/29/22 05:14 Blood - Venous Blood Culture - Final No growth after 5 days. 05/29/22 05:14 Blood - Venous Blood Culture - Final No growth after 5 days. 06/02/22 Unknown Abscess Intra-abdominal Gram Stain - Final 06/02/22 Unknown Abscess Intra-abdominal Routine Culture - Final 06/02/22 Unknown Abscess Intra-abdominal Anaerobic Culture - Final 06/02/22 Unknown Abscess Intra-abdominal Gram Stain - Final 06/02/22 Unknown Abscess Intra-abdominal Routine Culture - Final 05/28/22 Unknown Peritoneal Fluid Gram Stain - Final 05/28/22 Unknown Peritoneal Fluid Anaerobic Culture - Final 05/28/22 Unknown Peritoneal Fluid Body Fluid Culture - Final Verónica dubliniensis 05/29/22 15:05 Sputum - Suctioned Gram Stain - Final 05/29/22 15:05 Sputum - Suctioned Sputum Culture - Final Verónica dubliniensis 05/28/22 16:47 Sputum - Suctioned Gram Stain - Final 05/28/22 16:47 Sputum - Suctioned Sputum Culture - Final [place] albicans 05/23/22 Unknown Peritoneal Fluid Gram Stain - Final 05/23/22 Unknown Peritoneal Fluid Routine Culture - Final Escherichia coli 05/23/22 Unknown Peritoneal Fluid Anaerobic Culture - Final Clostridium perfringens Bacteroides thetaiotaomicron 05/19/22 08:49 Blood - Venous Blood Culture - Final No growth after 5 days. 05/19/22 08:49 Blood - Venous Blood Culture - Final No growth after 5 days. 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 Time Spent With Patient Time: Total time spent is greater than 50% in coordination of care (as documented) at patient's floor/unit and/or counseling patient: Quality Stroke Does the patient have a stroke diagnosis?: No VTE Prior VTE?: No VTE Risk Level:: Medical - moderate - high VTE Device Contraindication: N/A - Device Ordered VTE Drug Contraindication: N/A - Med Ordered
--- NOTE | 2022-07-14 15:47 | P.PCNCC_ITS ---
Procedures Date of Service Date of Service: 07/14/22 Arterial Line Size (Gauge): 16 Central Line Placement Left IJ: Central Line Comments: PROCEDURE: Guidewire exchange of central venous catheter. INDICATION: Need for central venous access. The patient arrived from surgery yesterday with the left internal jugular central venous introducer in place. The line was changed over the guidewire for a new triple-lumen central venous catheter. The in-situ left internal jugular introducer was sloppy prepped with chlorhexidine. The field was then sterilely draped. A guidewire wire was then threaded through the introducer and the catheter was pulled out over the wire. Pressure was held. Bleeding. A new 20 cm x 7 [place] central venous catheter was then threaded over the wire via Seldinger technique without incident. The catheter was seated to the hub. All 3 lumens were flushed and there was good blood return x3. . Will the catheter was sutured x2 and a Biopatch and dry sterile dressing were applied. Postop chest x-ray showed the line in good position with no pneumothorax. The patient tolerated the procedure well with no complications. Consent for Procedure: Elective - informed consent obtained Time out performed: Yes Sterile Technique Used: Yes Patient placed on monitor/pulse ox: Yes prep: mask, gown and gloves Central line prep: Chlorhexidine scrub Central line lumen inserted: triple Post procedure: sutured in place, good blood return, all ports aspirated, flushed, capped and sterile dressing applied Post procedure x-ray: tip of catheter in good position and no pneumothorax seen Patient tolerated procedure: well and no complications Complications: none
[2022-07-14 18:32] LABS: Mean Corpuscular HGB Conc 34.1 g/dl (31.0-35.0); Mean Corpuscular Hemoglobin 29.8 pg (27.0-33.0); Mean Corpuscular Volume 87.5 fL (80.0-98.0); Mean Platelet Volume 9.8 fL (9.4-12.3); Platelet Count 212 X10*3/uL (160-400); Red Blood Count 2.08 X10*6/uL (4.20-5.50); Red Cell Distribution Width 18.2 % (11.0-16.0)
[2022-07-14] MEDS: levoFLOXacin/D5W 750 MG/150 ML PIGGYBACK 100 MG IV (18:40)
[2022-07-14 18:48] LABS: Anion Gap 14 (12-20); Blood Urea Nitrogen 8 mg/dL (9-16); Carbon Dioxide 22 mmol/L (22-29); Chloride 108 mmol/L (96-108); Creatinine Clr Calc Pharmacy 132.3; Estimated Glomerular Filt Rate > 60; Glucose Random 178 mg/dL (60-115); Potassium 3.4 mmol/L (3.3-5.1); Sodium 141 mmol/L (135-145)
[2022-07-14 18:53] LABS: Hematocrit 18.2 % (37.0-47.0); WBC ABN SCTR FOR CBC 1; White Blood Count 9.5 X10*3/uL (4.8-10.8)
[2022-07-14 18:55] LABS: Hemoglobin 6.2 g/dl (12.0-16.0)
[2022-07-14 19:03] LABS: Band Neutrophils Percent 14 % (3-5); Lymphocytes Absolute Manual 1.4 X10*3/uL (1.2-4.9); Lymphocytes Percent Manual 15 % (20-40); Macrocytosis 1+ (5-14) /OIF; Metamyelocytes Absolute 0.3 X10*3/uL; Metamyelocytes Percent 3 %; Monocytes Absolute Manual 0.7 X10*3/uL (0.1-1.2); Monocytes Percent Manual 7 % (2-11); Neutrophils Absolute Manual 7.1 X10*3/uL (2.0-8.3); Neutrophils Percent Manual 61 % (45-73); RBC Morphology NOTED
[2022-07-14 19:04] LABS: Hypochromasia 1+ (5-14) /OIF; Microcytosis 1+ (5-14) /OIF; Polychromasia 1+ (0-2) /OIF
[2022-07-14 19:05] LABS: Platelet Estimate NORMAL (NORMAL); Platelet Morphology Comment NORMAL
[2022-07-14] MEDS: Linezolid/D5W 600 MG/300 ML PIGGYBACK 300 MG IV (20:11)
[2022-07-14] MEDS: Fidaxomicin 200 MG TABLET PO (20:11)
[2022-07-14 22:39] LABS: CDiff Gene PCR NEGATIVE (Negative)
[2022-07-15] VITALS (30 sets, daily range): BP systolic 96–150; BP diastolic 50–73; PULSE 107–126; RESP 12–23; TEMP 34.8–38; O2SAT 92–100; BMI 38.2
[2022-07-15 01:59] LABS: Hematocrit 23.4 % (37.0-47.0); Hemoglobin 7.7 g/dl (12.0-16.0); Mean Corpuscular HGB Conc 32.9 g/dl (31.0-35.0); Mean Corpuscular Hemoglobin 28.9 pg (27.0-33.0); Platelet Count 189 X10*3/uL (160-400); Red Blood Count 2.66 X10*6/uL (4.20-5.50); Red Cell Distribution Width 16.7 % (11.0-16.0)
[2022-07-15 02:02] LABS: WBC ABN SCTR FOR CBC 1
[2022-07-15 02:32] LABS: Alanine Aminotransferase < 6 U/L (0-31); Alkaline Phosphatase 40 U/L (39-117); Anion Gap 15 (12-20); Aspartate Amino Transferase 7 U/L (5-31); Bilirubin Total 0.6 mg/dL (0.0-1.0); Blood Urea Nitrogen 10 mg/dL (9-16); Calcium 7.6 mg/dL (8.4-10.2); Carbon Dioxide 20 mmol/L (22-29); Chloride 108 mmol/L (96-108); Creatinine Clr Calc Pharmacy 126.9; Estimated Glomerular Filt Rate > 60; Glucose Random 193 mg/dL (60-115); Magnesium 1.8 mg/dL (1.6-2.6); Phosphorus 3.5 mg/dL (2.7-4.5); Potassium 2.9 mmol/L (3.3-5.1); Sodium 140 mmol/L (135-145); Total Protein 3.4 g/dL (6.5-8.0)
[2022-07-15 02:36] LABS: Band Neutrophils Percent 29 % (3-5); Lymphocytes Absolute Manual 1.4 X10*3/uL (1.2-4.9); Lymphocytes Percent Manual 13 % (20-40); Macrocytosis 1+ (5-14) /OIF; Monocytes Percent Manual 9 % (2-11); Neutrophils Absolute Manual 8.6 X10*3/uL (2.0-8.3); Neutrophils Percent Manual 49 % (45-73); RBC Morphology NOTED
[2022-07-15 02:37] LABS: Burr Cells 1+ (0-2) /OIF; Dohle Bodies PRESENT; Platelet Estimate NORMAL (NORMAL); Platelet Morphology Comment NORMAL; Polychromasia 1+ (0-2) /OIF; Smudge Cells PRESENT
[2022-07-15] MEDS: propofoL 1,000 MG/100 ML VIAL 21.7 MG IVCONT ×6 (03:00→23:38)
[2022-07-15] MEDS: fentaNYL citrate/NS 1,000 MCG/100 ML PLAST..BAG 5 MCG IVCONT ×2 (03:00→22:12)
[2022-07-15] MEDS: metroNIDAZOLE/NS 500 MG/100 ML PIGGYBACK 100 MG IV ×3 (05:44→21:05)
--- NOTE | 2022-07-15 06:54 | PM.CCPN ---
Subjective Subjective Date of Service: 07/15/22 Interval History: 62-year-old female with underlying Crohn's disease who has been here now for nearly a month and a half apparently with a large perforated colon and extensive stool soiling of the peritoneum resulting in in multiple walled off abscess easy each of which was drained by Interventional Radiology and was treated with prolonged broad-spectrum antibiotics and antifungals as well and just before apparently being ready for discharge and this is following Reina recovery of acute kidney injury that resolved encephalopathy that resolved and ARDS that had resolved she developed extensive C diff colitis and this was a foam in in case and required a subtotal colectomy and OR and instability requiring vasopressin and multiple doses of IV phenylephrine to maintain her blood pressure which was successful urine flow successfully maintained but at the expense of over 8 L of crystalloid in the OR along with 8 units of packed red cells a similar number of fresh frozen plasma and and cryoglobulin units as well and continues to remain significantly anemic with guaiac-positive material coming from her ostomy site and so 2 more units of packed red cells needed to be transfused S simply to bring her hemoglobin up into the the 7-1/2 range that helped to relieve the sinus tachycardia that she had but we also noticed that she was profoundly hypokalemic which we are replacing aggressively and in addition we placed a dedicated central venous line via the left internal jugular vein for TPN and because she had markedly elevated central venous pressure in the high 20s she required IV diuresis with Lasix twice which sustained the hypokalemia and we continue to replace on going loss but she is otherwise metabolically maintained with good urine output and stable renal function no evidence of ARDS her FiO2 was down to 40% at this point and we will continue to follow her central venous pressure and diurese as needed replace electrolytes as needed Thus far all cultures for her persistent temperature a been negative but because of some of the described the micro perforations that noted by surgery in the OR I covered with Levaquin and linezolid but of cultures remain negative we might be able to discontinue these antibiotics but she does remain on IV metronidazole and I did check AC diff antigen profile on the material coming from the ostomy site to see if there was evidence of small bowel involvement and that is negative so I did not add any other agent orally Critical Care Time (minutes): 45 Physical Exam Vital Signs: Vital Signs: Last Vital Signs Temp 98.7 F 07/15/22 01:14 Pulse 111 H 07/15/22 06:00 Resp 19 07/15/22 06:00 BP 126/59 L 07/15/22 06:00 Pulse Ox 99 07/15/22 06:00 O2 Del Method 07/15/22 06:00 O2 Flow Rate 100 07/13/22 19:12 FiO2 30 07/15/22 06:00 Oxygen Flow Rate 35 06/13/22 21:00 BMI result Body Mass Index 38.2 Pressure 120/60 and this is off Levophed and on reduced vasopressin heart rate 120 and oxygen saturation 93% Sedated and intubated Lungs without accessory muscle use and no diaphragmatic effort Abdomen wounds Look fine no organomegaly skin demonstrating significant anasarca but no cellulitis no acrocyanosis Bedside cardiac exam normal LV function Objective Data Labs CBC & Chem 7: 07/15/22 19:55 07/15/22 19:55 Labs: Laboratory Results - last 24 hr 07/12/22 07/13/22 07/14/22 19:25 08:31 06:31 WBC RBC Hgb Hct MCV MCH MCHC RDW Plt Count MPV Immature Gran % (Auto) Neut % (Auto) Lymph % (Auto) [place] % (Auto) Eos % (Auto) Baso % (Auto) Lymph # (Auto) [place] # (Auto) Eos # (Auto) Baso # (Auto) Abs Immat Gran (auto) Absolute Neuts (auto) Absolute Nucleated RBC Nucleated RBC % (auto) Neutrophils % (Manual) Band Neutrophils % Lymphocytes % (Manual) Monocytes % (Manual) Metamyelocytes % Abs Neuts (Manual) Lymphocytes # (Manual) Monocytes # (Manual) Metamyelocytes # Smudge Cells Dohle Bodies Platelet Estimate Plt Morphology Comment RBC Morphology Polychromasia Hypochromasia Microcytosis Macrocytosis Susan Cells Smear Path Review PT 13.9 H INR 1.2 H APTT 30.3 Fibrinogen 576 Sodium Potassium Chloride Carbon Dioxide Anion Gap BUN Creatinine Estim Creat Clear Calc Estimated GFR Random Glucose Calcium Phosphorus Magnesium Total Bilirubin AST ALT Alkaline Phosphatase Lactate Dehydrogenase Total Protein Albumin Stool Occult Blood C. difficile Tox B Gene Blood Type B Positive Antibody Screen NEGATIVE Crossmatch See Detail 07/14/22 07/14/22 07/14/22 06:31 09:22 11:29 WBC 11.1 H RBC 2.39 L Hgb 7.1 L Hct 20.9 L* MCV 87.4 MCH 29.7 MCHC 34.0 RDW 17.6 H Plt Count 242 MPV 10.1 Immature Gran % (Auto) Neut % (Auto) Lymph % (Auto) [place] % (Auto) Eos % (Auto) Baso % (Auto) Lymph # (Auto) [place] # (Auto) Eos # (Auto) Baso # (Auto) Abs Immat Gran (auto) Absolute Neuts (auto) Absolute Nucleated RBC 0.000 Nucleated RBC % (auto) 0.0 Neutrophils % (Manual) Band Neutrophils % Lymphocytes % (Manual) Monocytes % (Manual) Metamyelocytes % Abs Neuts (Manual) Lymphocytes # (Manual) Monocytes # (Manual) Metamyelocytes # Smudge Cells Dohle Bodies Platelet Estimate Plt Morphology Comment RBC Morphology Polychromasia Hypochromasia Microcytosis Macrocytosis Susan Cells Smear Path Review PT INR APTT Fibrinogen Sodium Potassium Chloride Carbon Dioxide Anion Gap BUN Creatinine Estim Creat Clear Calc Estimated GFR Random Glucose Calcium Phosphorus Magnesium Total Bilirubin AST ALT Alkaline Phosphatase Lactate Dehydrogenase 121 L Total Protein Albumin Stool Occult Blood POSITIVE C. difficile Tox B Gene Blood Type Antibody Screen Crossmatch 07/14/22 07/14/22 07/14/22 11:29 18:14 18:14 WBC 9.5 RBC 2.08 L Hgb 6.2 L* Hct 18.2 L* MCV 87.5 MCH 29.8 MCHC 34.1 RDW 18.2 H Plt Count 212 MPV 9.8 Immature Gran % (Auto) Cancelled Neut % (Auto) Cancelled Lymph % (Auto) Cancelled [place] % (Auto) Cancelled Eos % (Auto) Cancelled Baso % (Auto) Cancelled Lymph # (Auto) Cancelled [place] # (Auto) Cancelled Eos # (Auto) Cancelled Baso # (Auto) Cancelled Abs Immat Gran (auto) Cancelled Absolute Neuts (auto) Cancelled Absolute Nucleated RBC 0.000 Nucleated RBC % (auto) 0.0 Neutrophils % (Manual) 61 Band Neutrophils % 14 H Lymphocytes % (Manual) 15 L Monocytes % (Manual) 7 Metamyelocytes % 3 Abs Neuts (Manual) 7.1 Lymphocytes # (Manual) 1.4 Monocytes # (Manual) 0.7 Metamyelocytes # 0.3 Smudge Cells Dohle Bodies Platelet Estimate NORMAL Plt Morphology Comment NORMAL RBC Morphology NOTED Polychromasia 1+ (0-2) Hypochromasia 1+ (5-14) Microcytosis 1+ (5-14) Macrocytosis 1+ (5-14) Susan Cells Smear Path Review PT INR APTT Fibrinogen Sodium 141 141 Potassium 3.1 L 3.4 Chloride 108 108 Carbon Dioxide 20 L 22 Anion Gap 16 14 BUN 8 L 8 L Creatinine 0.49 L 0.48 L Estim Creat Clear Calc 129.5 132.3 Estimated GFR > 60 > 60 Random Glucose 173 H 178 H Calcium 8.3 L 8.0 L Phosphorus Magnesium Total Bilirubin AST ALT Alkaline Phosphatase Lactate Dehydrogenase Total Protein Albumin Stool Occult Blood C. difficile Tox B Gene Blood Type Antibody Screen Crossmatch 07/14/22 07/15/22 07/15/22 20:27 01:20 01:20 WBC 11.0 H RBC 2.66 L D Hgb 7.7 L D Hct 23.4 L D MCV 88.0 MCH 28.9 MCHC 32.9 RDW 16.7 H Plt Count 189 MPV 10.0 Immature Gran % (Auto) Cancelled Neut % (Auto) Cancelled Lymph % (Auto) Cancelled [place] % (Auto) Cancelled Eos % (Auto) Cancelled Baso % (Auto) Cancelled Lymph # (Auto) Cancelled [place] # (Auto) Cancelled Eos # (Auto) Cancelled Baso # (Auto) Cancelled Abs Immat Gran (auto) Cancelled Absolute Neuts (auto) Cancelled Absolute Nucleated RBC 0.000 Nucleated RBC % (auto) 0.0 Neutrophils % (Manual) 49 Band Neutrophils % 29 H Lymphocytes % (Manual) 13 L Monocytes % (Manual) 9 Metamyelocytes % Abs Neuts (Manual) 8.6 H Lymphocytes # (Manual) 1.4 Monocytes # (Manual) 1.0 Metamyelocytes # Smudge Cells PRESENT Dohle Bodies PRESENT Platelet Estimate NORMAL Plt Morphology Comment NORMAL RBC Morphology NOTED Polychromasia 1+ (0-2) Hypochromasia Microcytosis Macrocytosis 1+ (5-14) [place] Cells 1+ (0-2) Smear Path Review PT INR APTT Fibrinogen Sodium 140 Potassium 2.9 L Chloride 108 Carbon Dioxide 20 L Anion Gap 15 BUN 10 Creatinine 0.50 Estim Creat Clear Calc 126.9 Estimated GFR > 60 Random Glucose 193 H Calcium 7.6 L Phosphorus 3.5 Magnesium 1.8 Total Bilirubin 0.6 AST 7 ALT < 6 Alkaline Phosphatase 40 Lactate Dehydrogenase Total Protein 3.4 L Albumin 2.0 L D Stool Occult Blood C. difficile Tox B Gene NEGATIVE Blood Type Antibody Screen Crossmatch Microbiology Microbiology Results: Microbiology 07/13/22 16:31 Abscess Rectal Gram Stain - Final 07/13/22 16:31 Abscess Rectal Routine Culture - Preliminary Culture in progress. 06/02/22 Unknown Abscess Intra-abdominal Fungal Identification - Final Verónica dubliniensis 06/22/22 16:30 Abdominal Fluid Gram Stain - Final 06/22/22 16:30 Abdominal Fluid Routine Culture - Final Verónica albicans 06/22/22 16:30 Abdominal Fluid Anaerobic Culture - Final NO GROWTH AFTER 5 DAYS 06/30/22 07:05 Blood - Venous Blood Culture - Final Corynebacterium species 07/01/22 16:44 Blood - Venous Blood Culture - Final No growth after 5 days. 07/01/22 16:45 Blood - Venous Blood Culture - Final No growth after 5 days. 06/30/22 07:05 Blood - Venous Blood Culture - Final No growth after 5 days. 06/27/22 01:16 Blood - Venous Blood Culture - Final No growth after 5 days. 06/27/22 01:16 Blood - Venous Blood Culture - Final No growth after 5 days. 06/24/22 06:14 Blood - Venous Blood Culture - Final No growth after 5 days. 06/24/22 06:14 Blood - Venous Blood Culture - Final No growth after 5 days. 06/03/22 15:28 Blood - Subclavian Blood Culture - Final No growth after 5 days. 06/03/22 06:15 Blood - Venous Blood Culture - Final No growth after 5 days. 06/03/22 06:15 Blood - Venous Blood Culture - Final No growth after 5 days. 06/02/22 Unknown Peritoneal Fluid Gram Stain - Final 06/02/22 Unknown Peritoneal Fluid Routine Culture - Final Verónica albicans 06/02/22 Unknown Peritoneal Fluid Anaerobic Culture - Final 05/29/22 15:14 Blood - Venous Blood Culture - Final No growth after 5 days. 05/29/22 15:13 Blood - Venous Blood Culture - Final No growth after 5 days. 05/29/22 05:14 Blood - Venous Blood Culture - Final No growth after 5 days. 05/29/22 05:14 Blood - Venous Blood Culture - Final No growth after 5 days. 06/02/22 Unknown Abscess Intra-abdominal Gram Stain - Final 06/02/22 Unknown Abscess Intra-abdominal Routine Culture - Final 06/02/22 Unknown Abscess Intra-abdominal Anaerobic Culture - Final 06/02/22 Unknown Abscess Intra-abdominal Gram Stain - Final 06/02/22 Unknown Abscess Intra-abdominal Routine Culture - Final 05/28/22 Unknown Peritoneal Fluid Gram Stain - Final 05/28/22 Unknown Peritoneal Fluid Anaerobic Culture - Final 05/28/22 Unknown Peritoneal Fluid Body Fluid Culture - Final Verónica dubliniensis 05/29/22 15:05 Sputum - Suctioned Gram Stain - Final 05/29/22 15:05 Sputum - Suctioned Sputum Culture - Final Verónica dubliniensis 05/28/22 16:47 Sputum - Suctioned Gram Stain - Final 05/28/22 16:47 Sputum - Suctioned Sputum Culture - Final Ver[place]ica albicans 05/23/22 Unknown Peritoneal Fluid Gram Stain - Final 05/23/22 Unknown Peritoneal Fluid Routine Culture - Final Escherichia coli 05/23/22 Unknown Peritoneal Fluid Anaerobic Culture - Final Clostridium perfringens Bacteroides thetaiotaomicron 05/19/22 08:49 Blood - Venous Blood Culture - Final No growth after 5 days. 05/19/22 08:49 Blood - Venous Blood Culture - Final No growth after 5 days. Progress Note: A&P Assessment and plan (1) S/P colectomy: Status: Acute (2) Hemorrhagic shock: Status: Acute (3) Megacolon, toxic: Status: Acute (4) Left upper extremity deep vein thrombosis: Status: Acute (5) Colitis due to Clostridioides difficile: Status: Acute (6) Leukocytosis: Status: Acute (7) Acute respiratory failure with hypoxia: Status: Acute (8) Peritonitis: Status: Acute (9) Crohn's disease: Status: Acute (10) Status post colostomy: Status: Acute (11) Ileus following gastrointestinal surgery: Status: Acute (12) Thrombocytopenia: Status: Acute (13) Anemia: Status: Acute (14) Hypernatremia: Status: Acute (15) Septic shock: Status: Acute (16) Hives: Status: Acute (17) Exacerbation of Crohn's disease: Status: Acute (18) Hypokalemia: Status: Acute (19) Perforated viscus: Status: Acute Plan So today we concentrated on the iatrogenic fluid overload with IV Lasix and replacing her profound hypokalemia and and also reinstating her TPN Quality Stroke Does the patient have a stroke diagnosis?: No VTE Prior VTE?: No VTE Risk Level:: Medical - moderate - high VTE Device Contraindication: N/A - Device Ordered VTE Drug Contraindication: N/A - Med Ordered
[2022-07-15] MEDS: Potassium Chloride/H20 20 MEQ/100 ML PIGGYBACK 50 MEQ IV ×4 (07:42→13:58)
[2022-07-15] MEDS: Linezolid/D5W 600 MG/300 ML PIGGYBACK 300 MG IV ×2 (07:53→21:05)
[2022-07-15] MEDS: 0.9 % Sodium Chloride Flush 3 ML SYRINGE IVFLUSH ×3 (07:54→23:38)
[2022-07-15] MEDS: Famotidine/PF 20 MG/2 ML VIAL IVPUSH (08:02)
[2022-07-15] MEDS: Nystatin Powder 15 GM BOTTLE 1 APPL TOPICAL ×2 (08:05→20:07)
[2022-07-15] MEDS: Chlorhexidine Gluc Oral Rinse 15 ML MOUTHWASH BUCCAL ×3 (08:05→20:07)
[2022-07-15] MEDS: Heparin Sodium,Porcine Flush 50 UNITS, 0.9 % Sodium Chloride Flush 5 ML IVFLUSH ×3 (08:26→20:07)
[2022-07-15] MEDS: Voriconazole 200 MG in 0.9 % Sodium Chloride 100 ML 50 MG IV ×2 (09:59→21:04)
[2022-07-15] MEDS: Furosemide 40 MG/4 ML VIAL IVPUSH (10:04)
--- NOTE | 2022-07-15 19:19 | PC.NURSE ---
+COUGH, MINIMAL GAG REFLEX. PT GRIMACES TO DEEP SUCTIONING. VENTED AC 18/350/5/30%. ET TUBE 7.0 20@ LIP. NO SEDATION VACATION THIS SHIFT PER MD PT HAS SOME ORAL SECRETIONS WITH DARK BROWN BILE TINGE SIMILAR TO NG TUBE NG TUBE TO RIGHT NARE TO INTERMITTENT SUCTION DRAINED 250 ML DARK GREEN FLUID TEMP 100.4 F 17:00, MD NOTIFIED NEW ILEOSTOMY SITE DRAINED 75 ML DARK BROWN LIQUID OUTPUT T-TUBE DRAIN TO LUQ DRAINED 20 ML YELLOW CLOUDY FLUID MIDLINE ABDOMINAL DRESSING CHANGED TWICE THIS SHIFT 09:00 AND 16:30 WITH MODERATE AMOUNT SEROSANGUINEOUS DRAINAGE. SURGEON AT BEDSIDE 18:00 NOTIFIED.
[2022-07-15] MEDS: levoFLOXacin/D5W 500 MG/100 ML PIGGYBACK 100 MG IV (20:06)
[2022-07-15 20:11] LABS: VBG Base Excess -1.6 mmol/L; VBG HCO3 22 mmol/L (22-26); VBG pCO2 34 mmHg; VBG pH 7.42 (7.32-7.43); VBG pO2 60 mmHg
[2022-07-15 20:12] LABS: Hematocrit 21.8 % (37.0-47.0); Hemoglobin 7.4 g/dl (12.0-16.0); Mean Corpuscular HGB Conc 33.9 g/dl (31.0-35.0); Mean Corpuscular Hemoglobin 29.7 pg (27.0-33.0); Mean Corpuscular Volume 87.6 fL (80.0-98.0); Mean Platelet Volume 9.6 fL (9.4-12.3); Platelet Count 179 X10*3/uL (160-400); Red Blood Count 2.49 X10*6/uL (4.20-5.50); Red Cell Distribution Width 17.6 % (11.0-16.0)
[2022-07-15 20:19] LABS: WBC ABN SCTR FOR CBC 1
[2022-07-15 20:20] LABS: Venous Blood Gas Refer to POC result
[2022-07-15 20:27] LABS: Anion Gap 15 (12-20); Blood Urea Nitrogen 10 mg/dL (9-16); Calcium 7.6 mg/dL (8.4-10.2); Carbon Dioxide 21 mmol/L (22-29); Chloride 105 mmol/L (96-108); Creatinine Clr Calc Pharmacy 146.2; Estimated Glomerular Filt Rate > 60; Glucose Random 164 mg/dL (60-115); Potassium 2.9 mmol/L (3.3-5.1); Sodium 138 mmol/L (135-145)
[2022-07-15 20:46] LABS: Atypical Lymphs Percent Manual 3 % (0-6); Band Neutrophils Percent 4 % (3-5); Lymphocytes Percent Manual 15 % (20-40); Monocytes Percent Manual 5 % (2-11); Neutrophils Percent Manual 73 % (45-73); RBC Morphology NOTED
[2022-07-15 20:47] LABS: Acanthocytes 2+ (3-5) /OIF; Burr Cells 2+ (3-5) /OIF; Dohle Bodies PRESENT; Large Platelet PRESENT; Macrocytosis 1+ (5-14) /OIF; Microcytosis 1+ (5-14) /OIF; Platelet Estimate SLIGHTLY DECREASED (NORMAL); Platelet Morphology Comment NOTED; Polychromasia 2+ (3-5) /OIF; Smudge Cells PRESENT; Toxic Granulation PRESENT; Toxic Vacuolation PRESENT
[2022-07-16] VITALS (34 sets, daily range): BP systolic 106–146; BP diastolic 45–76; PULSE 114–130; RESP 18–36; TEMP 35–38.4; O2SAT 91–96; BMI 37.8
[2022-07-16 01:01] LABS: Atypical Lymph Absolute Manual 0.2 x10*3/uL; Lymphocytes Absolute Manual 1.1 X10*3/uL (1.2-4.9); Monocytes Absolute Manual 0.4 X10*3/uL (0.1-1.2); Neutrophils Absolute Manual 5.4 X10*3/uL (2.0-8.3)
[2022-07-16] MEDS: Potassium Chloride/H20 20 MEQ/100 ML PIGGYBACK 100 MEQ IV ×4 (01:03→06:27)
[2022-07-16] MEDS: propofoL 1,000 MG/100 ML VIAL 21.7 MG IVCONT (02:42)
--- NOTE | 2022-07-16 03:17 | PC.NURSE ---
CARE ASSUMED 23:15..REMAINS TUBED/VENTED..SEDATE WITH FENTANYL/PROPOFOL DRIPS...GRIMACES WITH POSITIONING...ILEOSTOMY WITH SMALL AMOUNT BLACK-GREEN LIQUIED DRAINAGE..DRESSING LEFT ABDOMEN WITH SEROUS STAINING..LUQ DRAIN WITH SMALL HAZY-SEDIMENTED YELLOW DRAINAGE....CVP LINE WITH ?RV WAVEFORM...? 70/14...MD AT BEDSIDE ..CXR DONE AND REVIEWED BY MD....MD RETRACTED TLC AND APPROPRIATE CVP WAVEFORM OBTAINED...CVP APPROX 15-16...KCL 20MEQ IV X2 DOSES INFUSED ...NO VENTRICULAR DYSRHYTHMIA PRE OR POST TLC ADJUSTMENT...FOLLOW UP CHEMISTRY DRAWN AND PENDING
[2022-07-16 03:45] LABS: Anion Gap 15 (12-20); Blood Urea Nitrogen 11 mg/dL (9-16); Calcium 7.5 mg/dL (8.4-10.2); Carbon Dioxide 20 mmol/L (22-29); Chloride 105 mmol/L (96-108); Creatinine Clr Calc Pharmacy 164.5; Estimated Glomerular Filt Rate > 60; Glucose Random 160 mg/dL (60-115); Magnesium 1.7 mg/dL (1.6-2.6); Potassium 3.5 mmol/L (3.3-5.1); Sodium 136 mmol/L (135-145)
[2022-07-16] MEDS: Furosemide 40 MG/4 ML VIAL IVPUSH (04:20)
[2022-07-16 04:32] LABS: VBG Base Excess -1.1 mmol/L; VBG HCO3 23 mmol/L (22-26); VBG pCO2 35 mmHg; VBG pH 7.41 (7.32-7.43); VBG pO2 49 mmHg
[2022-07-16 04:41] LABS: Hematocrit 23.4 % (37.0-47.0); Hemoglobin 7.6 g/dl (12.0-16.0); Mean Corpuscular HGB Conc 32.5 g/dl (31.0-35.0); Mean Corpuscular Volume 89.3 fL (80.0-98.0); Mean Platelet Volume 9.4 fL (9.4-12.3); Platelet Count 183 X10*3/uL (160-400); Red Blood Count 2.62 X10*6/uL (4.20-5.50); Red Cell Distribution Width 17.9 % (11.0-16.0)
[2022-07-16 04:42] LABS: WBC ABN SCTR FOR CBC 1; White Blood Count 7.6 X10*3/uL (4.8-10.8)
[2022-07-16] MEDS: Magnesium Sulfate/D5W 1 GM/100 ML PIGGYBACK IV (04:54)
[2022-07-16 04:58] LABS: Anion Gap 17 (12-20); Blood Urea Nitrogen 11 mg/dL (9-16); Calcium 7.6 mg/dL (8.4-10.2); Carbon Dioxide 19 mmol/L (22-29); Chloride 104 mmol/L (96-108); Creatinine Clr Calc Pharmacy 156.7; Estimated Glomerular Filt Rate > 60; Glucose Random 166 mg/dL (60-115); Magnesium 1.7 mg/dL (1.6-2.6); Potassium 3.6 mmol/L (3.3-5.1); Sodium 136 mmol/L (135-145)
[2022-07-16] MEDS: metroNIDAZOLE/NS 500 MG/100 ML PIGGYBACK 100 MG IV ×3 (05:05→22:57)
[2022-07-16 05:08] LABS: Band Neutrophils Percent 19 % (3-5); Basophils Abs Manual 0.1 X10*3/uL (0.0-0.2); Basophils Percent Manual 1 % (0-2); Burr Cells 1+ (0-2) /OIF; Dohle Bodies PRESENT; Lymphocytes Absolute Manual 0.9 X10*3/uL (1.2-4.9); Lymphocytes Percent Manual 12 % (20-40); Macrocytosis 1+ (5-14) /OIF; Monocytes Absolute Manual 0.2 X10*3/uL (0.1-1.2); Monocytes Percent Manual 3 % (2-11); Neutrophils Absolute Manual 6.4 X10*3/uL (2.0-8.3); Neutrophils Percent Manual 65 % (45-73); Platelet Estimate SLIGHTLY DECREASED (NORMAL); Platelet Morphology Comment NORMAL; RBC Morphology NOTED; Smudge Cells PRES
[2022-07-16 06:11] LABS: Venous Blood Gas Refer to POC result
[2022-07-16 06:46] LABS: Phosphorus 3.6 mg/dL (2.7-4.5)
--- NOTE | 2022-07-16 07:20 | P.PNCC_ITS ---
Subjective Subjective Date of Service: 07/16/22 Interval History: 62-year-old female who is here now for about 7 weeks all told with underlying Crohn's disease she had a perforated viscus with extensive stool soilage of the peritoneum despite extensive washout diverting ostomy resection of disease segment she spent weeks in recovery because of complications due to multi organism sepsis from peritonitis with multiple collections all requiring individual drains all placed by Interventional Radiology and eventually defervesced and resolved her encephalopathy her acute kidney insufficiency and her ARDS picture and then 2 days before discharge he developed the foam in and C diff colitis and had to get subtotal colectomy in the OR with a diverting ileostomy the fluid from which was negative for C diff antigen and no longer on the fidaxomycin but because they observed multiple areas of micro perforation from a very transmural E disease: I had just covered her after extensive cultu ring and wound culture pending with Levaquin and linezolid but she does not have that same toxic appearance she had before and today for the 1st time sedation holiday and she woke up appropriately with excellent cognitive function and that was fairly prompt and spent the entire day on pressure support doing very well at this point she appears to be fatiguing her sinus rate is up to 127 saturations remained excellent at 95% on an FiO2 of 30% pressure 136/70 on minimal Levophed respiratory rate is in the low 20s and chest x-ray probably has 60 no significant atelectasis bilaterally but for the 1st time CVP is about 6-7 this is after several doses of IV Lasix because of marked iatrogenic fluid overload with elevated CVP now that is all leveling off the profound deficit of of potassium has been replaced as has the magnesium this might be time for us to consider recent dating at least overnight Her hemoglobin has been holding stat Ali at about 7 and half Critical Care Time (minutes): 45 Physical Exam Vital Signs: Vital Signs: Last Vital Signs Temp 100.1 F 07/16/22 02:47 Pulse 117 H 07/16/22 07:00 Resp 18 07/16/22 07:00 BP 119/56 L 07/16/22 07:00 Pulse Ox 95 07/16/22 07:00 O2 Del Method 07/16/22 07:00 O2 Flow Rate 100 07/13/22 19:12 FiO2 30 07/16/22 07:00 Oxygen Flow Rate 35 06/13/22 21:00 BMI result Body Mass Index 37.8 She did beautifully with excellent cognitive function and on pressure support she manage virtually all day the ventilator but tidal volume started to flag at the end of the day with some increase in her heart rate and we rested her on assist control Abdomen benign Chest the likely atelectasis left lower lobe you could see in in retrocardiac and some right basilar atelectasis as well but no added adventitious sounds no diaphragmatic effort no accessory muscle use Cardiac exam with excellent LV and RV function by echo at bedside Objective Data Labs CBC & Chem 7: 07/16/22 04:20 07/16/22 04:20 Labs: Laboratory Results - last 24 hr 07/15/22 07/15/22 07/15/22 19:55 19:55 20:05 WBC 7.0 RBC 2.49 L Hgb 7.4 L Hct 21.8 L MCV 87.6 MCH 29.7 MCHC 33.9 RDW 17.6 H Plt Count 179 MPV 9.6 Immature Gran % (Auto) Cancelled Neut % (Auto) Cancelled Lymph % (Auto) Cancelled Wilkinson % (Auto) Cancelled Eos % (Auto) Cancelled Baso % (Auto) Cancelled Lymph # (Auto) Cancelled Wilkinson # (Auto) Cancelled Eos # (Auto) Cancelled Baso # (Auto) Cancelled Abs Immat Gran (auto) Cancelled Absolute Neuts (auto) Cancelled Absolute Nucleated RBC 0.000 Nucleated RBC % (auto) 0.0 Neutrophils % (Manual) 73 Band Neutrophils % 4 Lymphocytes % (Manual) 15 L Atypical Lymphs % (Man) 3 Monocytes % (Manual) 5 Basophils % (Manual) Abs Neuts (Manual) 5.4 Lymphocytes # (Manual) 1.1 L Atyp Lymphs # (Manual) 0.2 Monocytes # (Manual) 0.4 Basophils # (Manual) Smudge Cells PRESENT Toxic Granulation PRESENT Toxic Vacuolation PRESENT Dohle Bodies PRESENT Platelet Estimate SLIGHTLY DECREASED Large Platelets PRESENT Plt Morphology Comment NOTED RBC Morphology NOTED Polychromasia 2+ (3-5) Microcytosis 1+ (5-14) Macrocytosis 1+ (5-14) Susan Cells 2+ (3-5) Acanthocytes (Spur) 2+ (3-5) VBG pH 7.42 VBG pCO2 34 VBG pO2 60 VBG HCO3 22 VBG O2 Saturation 90.0 VBG Base Excess -1.6 Sodium 138 Potassium 2.9 L Chloride 105 Carbon Dioxide 21 L Anion Gap 15 BUN 10 Creatinine 0.45 L Estim Creat Clear Calc 146.2 Estimated GFR > 60 Random Glucose 164 H Calcium 7.6 L Phosphorus Magnesium 07/16/22 07/16/22 07/16/22 03:05 04:20 04:20 WBC 7.6 RBC 2.62 L Hgb 7.6 L Hct 23.4 L MCV 89.3 MCH 29.0 MCHC 32.5 RDW 17.9 H Plt Count 183 MPV 9.4 Immature Gran % (Auto) Cancelled Neut % (Auto) Cancelled Lymph % (Auto) Cancelled Wilkinson % (Auto) Cancelled Eos % (Auto) Cancelled Baso % (Auto) Cancelled Lymph # (Auto) Cancelled Wilkinson # (Auto) Cancelled Eos # (Auto) Cancelled Baso # (Auto) Cancelled Abs Immat Gran (auto) Cancelled Absolute Neuts (auto) Cancelled Absolute Nucleated RBC 0.000 Nucleated RBC % (auto) 0.0 Neutrophils % (Manual) 65 Band Neutrophils % 19 H Lymphocytes % (Manual) 12 L Atypical Lymphs % (Man) Monocytes % (Manual) 3 Basophils % (Manual) 1 Abs Neuts (Manual) 6.4 Lymphocytes # (Manual) 0.9 L Atyp Lymphs # (Manual) Monocytes # (Manual) 0.2 Basophils # (Manual) 0.1 Smudge Cells PRES Toxic Granulation Toxic Vacuolation Dohle Bodies PRESENT Platelet Estimate SLIGHTLY DECREASED Large Platelets Plt Morphology Comment NORMAL RBC Morphology NOTED Polychromasia Microcytosis Macrocytosis 1+ (5-14) Susan Cells 1+ (0-2) Acanthocytes (Spur) VBG pH VBG pCO2 VBG pO2 VBG HCO3 VBG O2 Saturation VBG Base Excess Sodium 136 136 Potassium 3.5 D 3.6 Chloride 105 104 Carbon Dioxide 20 L 19 L Anion Gap 15 17 BUN 11 11 Creatinine 0.40 L 0.42 L Estim Creat Clear Calc 164.5 156.7 Estimated GFR > 60 > 60 Random Glucose 160 H 166 H Calcium 7.5 L 7.6 L Phosphorus 3.6 Magnesium 1.7 1.7 07/16/22 04:26 WBC RBC Hgb Hct MCV MCH MCHC RDW Plt Count MPV Immature Gran % (Auto) Neut % (Auto) Lymph % (Auto) Wilkinson % (Auto) Eos % (Auto) Baso % (Auto) Lymph # (Auto) Wilkinson # (Auto) Eos # (Auto) Baso # (Auto) Abs Immat Gran (auto) Absolute Neuts (auto) Absolute Nucleated RBC Nucleated RBC % (auto) Neutrophils % (Manual) Band Neutrophils % Lymphocytes % (Manual) Atypical Lymphs % (Man) Monocytes % (Manual) Basophils % (Manual) Abs Neuts (Manual) Lymphocytes # (Manual) Atyp Lymphs # (Manual) Monocytes # (Manual) Basophils # (Manual) Smudge Cells Toxic Granulation Toxic Vacuolation Dohle Bodies Platelet Estimate Large Platelets Plt Morphology Comment RBC Morphology Polychromasia Microcytosis Macrocytosis [place] Cells Acanthocytes (Spur) VBG pH 7.41 VBG pCO2 35 VBG pO2 49 VBG HCO3 23 VBG O2 Saturation 77.0 VBG Base Excess -1.1 Sodium Potassium Chloride Carbon Dioxide Anion Gap BUN Creatinine Estim Creat Clear Calc Estimated GFR Random Glucose Calcium Phosphorus Magnesium Microbiology Microbiology Results: Microbiology 07/13/22 16:31 Abscess Rectal Gram Stain - Final 07/13/22 16:31 Abscess Rectal Routine Culture - Final 06/02/22 Unknown Abscess Intra-abdominal Fungal Identification - Final Verónica dubliniensis 06/22/22 16:30 Abdominal Fluid Gram Stain - Final 06/22/22 16:30 Abdominal Fluid Routine Culture - Final Verónica albicans 06/22/22 16:30 Abdominal Fluid Anaerobic Culture - Final NO GROWTH AFTER 5 DAYS 06/30/22 07:05 Blood - Venous Blood Culture - Final Corynebacterium species 07/01/22 16:44 Blood - Venous Blood Culture - Final No growth after 5 days. 07/01/22 16:45 Blood - Venous Blood Culture - Final No growth after 5 days. 06/30/22 07:05 Blood - Venous Blood Culture - Final No growth after 5 days. 06/27/22 01:16 Blood - Venous Blood Culture - Final No growth after 5 days. 06/27/22 01:16 Blood - Venous Blood Culture - Final No growth after 5 days. 06/24/22 06:14 Blood - Venous Blood Culture - Final No growth after 5 days. 06/24/22 06:14 Blood - Venous Blood Culture - Final No growth after 5 days. 06/03/22 15:28 Blood - Subclavian Blood Culture - Final No growth after 5 days. 06/03/22 06:15 Blood - Venous Blood Culture - Final No growth after 5 days. 06/03/22 06:15 Blood - Venous Blood Culture - Final No growth after 5 days. 06/02/22 Unknown Peritoneal Fluid Gram Stain - Final 06/02/22 Unknown Peritoneal Fluid Routine Culture - Final Verónica albicans 06/02/22 Unknown Peritoneal Fluid Anaerobic Culture - Final 05/29/22 15:14 Blood - Venous Blood Culture - Final No growth after 5 days. 05/29/22 15:13 Blood - Venous Blood Culture - Final No growth after 5 days. 05/29/22 05:14 Blood - Venous Blood Culture - Final No growth after 5 days. 05/29/22 05:14 Blood - Venous Blood Culture - Final No growth after 5 days. 06/02/22 Unknown Abscess Intra-abdominal Gram Stain - Final 06/02/22 Unknown Abscess Intra-abdominal Routine Culture - Final 06/02/22 Unknown Abscess Intra-abdominal Anaerobic Culture - Final 06/02/22 Unknown Abscess Intra-abdominal Gram Stain - Final 06/02/22 Unknown Abscess Intra-abdominal Routine Culture - Final 05/28/22 Unknown Peritoneal Fluid Gram Stain - Final 05/28/22 Unknown Peritoneal Fluid Anaerobic Culture - Final 05/28/22 Unknown Peritoneal Fluid Body Fluid Culture - Final Verónica dubliniensis 05/29/22 15:05 Sputum - Suctioned Gram Stain - Final 05/29/22 15:05 Sputum - Suctioned Sputum Culture - Final Verónica dubliniensis 05/28/22 16:47 Sputum - Suctioned Gram Stain - Final 05/28/22 16:47 Sputum - Suctioned Sputum Culture - Final Verónica albicans 05/23/22 Unknown Peritoneal Fluid Gram Stain - Final 05/23/22 Unknown Peritoneal Fluid Routine Culture - Final Escherichia coli 05/23/22 Unknown Peritoneal Fluid Anaerobic Culture - Final Clostridium perfringens Bacteroides thetaiotaomicron 05/19/22 08:49 Blood - Venous Blood Culture - Final No growth after 5 days. 05/19/22 08:49 Blood - Venous Blood Culture - Final No growth after 5 days. Progress Note: A&P Assessment and plan (1) S/P colectomy: Status: Acute (2) Hemorrhagic shock: Status: Acute (3) Megacolon, toxic: Status: Acute (4) Left upper extremity deep vein thrombosis: Status: Acute (5) Colitis due to Clostridioides difficile: Status: Acute (6) Fever of unknown origin: Status: Acute (7) Leukocytosis: Status: Acute (8) Acute respiratory failure with hypoxia: Status: Acute (9) Peritonitis: Status: Acute (10) Crohn's disease: Status: Acute (11) Status post colostomy: Status: Acute (12) Ileus following gastrointestinal surgery: Status: Acute (13) Thrombocytopenia: Status: Acute (14) Anemia: Status: Acute (15) Hypernatremia: Status: Acute (16) Septic shock: Status: Acute (17) Shock: Status: Acute (18) Perforated viscus: Status: Acute (19) Hypokalemia: Status: Acute (20) Constipation: Status: Acute (21) Fibromyalgia: Status: Acute (22) Exacerbation of Crohn's disease: Status: Acute (23) Colitis: Status: Acute (24) Acute proctitis: Status: Acute (25) Viral illness: Status: Acute (26) Hives: Status: Acute Plan So we will rest her on assist control for tonight and then again sedation holiday in the morning and in the another attempted weaning trial she came very close today Continue the TPN feedings at the increased heart rate and potassium replacement as needed Reassess for any antibiotic requirement once culture results are reported in the morning Quality Stroke Does the patient have a stroke diagnosis?: No VTE Prior VTE?: No VTE Risk Level:: Medical - moderate - high VTE Device Contraindication: N/A - Device Ordered VTE Drug Contraindication: N/A - Med Ordered
[2022-07-16] MEDS: Famotidine/PF 20 MG/2 ML VIAL IVPUSH (07:36)
[2022-07-16] MEDS: Nystatin Powder 15 GM BOTTLE 1 APPL TOPICAL ×2 (07:36→20:03)
[2022-07-16] MEDS: Heparin Sodium,Porcine Flush 50 UNITS, 0.9 % Sodium Chloride Flush 5 ML IVFLUSH ×3 (07:36→20:02)
[2022-07-16] MEDS: Chlorhexidine Gluc Oral Rinse 15 ML MOUTHWASH BUCCAL ×3 (07:36→20:02)
[2022-07-16] MEDS: 0.9 % Sodium Chloride Flush 3 ML SYRINGE IVFLUSH ×3 (07:37→22:57)
[2022-07-16] MEDS: Linezolid/D5W 600 MG/300 ML PIGGYBACK 300 MG IV ×2 (07:50→20:48)
[2022-07-16] MEDS: propofoL 1,000 MG/100 ML VIAL 16.27 MG IVCONT ×2 (08:00→22:48)
[2022-07-16] MEDS: Voriconazole 200 MG in 0.9 % Sodium Chloride 100 ML 50 MG IV ×2 (08:59→19:55)
[2022-07-16] MEDS: fentaNYL citrate/NS 1,000 MCG/100 ML PLAST..BAG 7.5 MCG IVCONT ×2 (11:12→22:48)
--- NOTE | 2022-07-16 16:17 | P.PNGS_ITS ---
Subjective Subjective Date of Service: 07/16/22 Interval history: The patient is doing very well. She still intubated with a little sedation but she is awake and alert and following commands and understanding and responding appropriately. She says she has no pain. She may be extubated this afternoon Physical Exam Vital Signs: Vital Signs: Last Vital Signs Temp 100.6 F H 07/16/22 12:00 Pulse 130 H 07/16/22 16:00 Resp 26 H 07/16/22 16:00 BP 141/71 H 07/16/22 16:00 Pulse Ox 95 07/16/22 16:00 O2 Del Method 07/16/22 16:00 O2 Flow Rate 100 07/13/22 19:12 FiO2 30 07/16/22 16:00 Oxygen Flow Rate 35 06/13/22 21:00 BMI result Body Mass Index 37.8 Const: General: cooperative, comfortable and no acute distress GI: Other: her abdomen is soft not very distended ostomy is working dressings are intact. Hypo bowel sounds Objective Data Active Medications Chlorhexidine Gluconate (Chlorhexidine Gluc Oral Rinse 15 Ml Mouthwash) 15 ml BUCCAL TID [facility] Last Admin: 07/16/22 14:50 Dose: 15 ml Documented By: CARLEEN Heparin Sodium (Porcine) 50 (units/ Sodium Chloride 5 ml) 0 units IVFLUSH TID [facility] Last Admin: 07/16/22 14:50 Dose: 50 unit Documented By: CARLEEN Famotidine (Famotidine/Pf 20 Mg/2 Ml Vial) 20 mg IVPUSH DAILY [facility] Last Admin: 07/16/22 07:36 Dose: 20 mg Documented By: CARLEEN Metronidazole (Flagyl) 500 mg in 100 mls @ 100 mls/hr IV Q8H [facility] Last Infusion: 07/16/22 15:52 Dose: 0 mls/hr Documented By: MADALYN Voriconazole 200 mg/ Sodium (Chloride) 100 mls @ 50 mls/hr IV Q12H [facility] Last Infusion: 07/16/22 11:03 Dose: 0 mls/hr Documented By: CARLEEN Propofol (Diprivan) 1,000 mg in 100 mls @ 0 mls/hr IVCONT .Q0M [facility]; Protocol Last Titration: 07/16/22 08:02 Dose: 0 mcg/kg/min, 0 mls/hr Documented By: CARLEEN Fentanyl (Sublimaze/Ns) 1,000 mcg in 100 mls @ 0 mls/hr IVCONT .Q0M [facility]; Protocol Last Admin: 07/16/22 11:12 Dose: 75 mcg/hr, 7.5 mls/hr Documented By: ISH Vasopressin 20 unit/ Sodium (Chloride) 101 mls @ 12.12 mls/hr IVCONT .Q8H20M [facility] Last Admin: 07/16/22 14:44 Dose: 0.04 unit/min, 12.12 mls/hr Documented By: CARLEEN Norepinephrine Bitartrate (Levophed) 8 mg in 250 mls @ 0 mls/hr IVCONT .Q0M [facility]; Protocol Last Titration: 07/15/22 00:09 Dose: 0 mcg/kg/min, 0 mls/hr Documented By: RIOS Levofloxacin (Levaquin) 500 mg in 100 mls @ 100 mls/hr IV Q24H [facility] Last Infusion: 07/15/22 21:09 Dose: 0 mls/hr Documented By: ISH Potassium Chloride 40 meq/Sodium Chloride 70 meq/Magnesium Sulfate 10 meq/Potassium Phosphate 30 mmol/Calcium Gluconate 9.3 meq/Multivitamins 15 ml/ Trace Metals 1.5 ml/ Amino Acids/Dextrose 1,320 mls @ 55 mls/hr IV DAILY@1800 [facility] Stop: 07/16/22 17:59 Last Admin: 07/15/22 17:43 Dose: 55 mls/hr Documented By: CARLEEN Potassium Chloride 40 meq/Sodium Chloride 70 meq/Magnesium Sulfate 10 meq/Potassium Phosphate 30 mmol/Calcium Gluconate 9.3 meq/Multivitamins 11 ml/ Trace Metals 1.1 ml/ Amino Acids/Dextrose 1,800 mls @ 75 mls/hr IV DAILY@1800 [facility] Stop: 07/17/22 17:59 Naloxone HCl (Naloxone Hcl 0.4 Mg/Ml Vial) 0.2 mg IVPUSH Q2M PRN PRN Reason: Excessive sedation or RR < 8 Patient Own Med ( (Ajovy 1.5 Ml)) 1.5 ml SUBCUT Q30D [facility] Last Admin: 06/30/22 13:56 Dose: 1.5 ml Documented By: LAKESHIA Nystatin (Nystatin Powder 15 Gm Bottle) 1 appl TOPICAL BID [facility]; Protocol Last Admin: 07/16/22 07:36 Dose: 1 appl Documented By: CARLEEN Pharmacy Consult (Consult Rx Perform Med Rec) 1 each MISCELLANE ONCE PRN PRN Reason: Consult order Sodium Chloride (0.9 % Sodium Chloride Flush 3 Ml Syringe) 3 ml IVFLUSH QSHIFT [facility] Last Admin: 07/16/22 14:50 Dose: 3 ml Documented By: CARLEEN Sumatriptan Succinate (Sumatriptan Succinate 6 Mg/0.5 Ml Vial) 6 mg SUBCUT DAILY PRN PRN Reason: migraine headache Last Admin: 07/11/22 16:21 Dose: 6 mg Documented By: SANTOS Labs CBC & Chem 7: 07/16/22 04:20 07/16/22 04:20 Labs: Laboratory Results - last 24 hr 07/12/22 07/15/22 07/15/22 19:25 19:55 19:55 MCV 87.6 MCH 29.7 MCHC 33.9 RDW 17.6 H Plt Count 179 MPV 9.6 Immature Gran % (Auto) Cancelled Neut % (Auto) Cancelled Lymph % (Auto) Cancelled [place] % (Auto) Cancelled Eos % (Auto) Cancelled Baso % (Auto) Cancelled Lymph # (Auto) Cancelled [place] # (Auto) Cancelled Eos # (Auto) Cancelled Baso # (Auto) Cancelled Abs Immat Gran (auto) Cancelled Absolute Neuts (auto) Cancelled Absolute Nucleated RBC 0.000 Nucleated RBC % (auto) 0.0 Neutrophils % (Manual) 73 Band Neutrophils % 4 Lymphocytes % (Manual) 15 L Atypical Lymphs % (Man) 3 Monocytes % (Manual) 5 Basophils % (Manual) Abs Neuts (Manual) 5.4 Lymphocytes # (Manual) 1.1 L Atyp Lymphs # (Manual) 0.2 Monocytes # (Manual) 0.4 Basophils # (Manual) Smudge Cells PRESENT Toxic Granulation PRESENT Toxic Vacuolation PRESENT Dohle Bodies PRESENT Platelet Estimate SLIGHTLY DECREASED Large Platelets PRESENT Plt Morphology Comment NOTED RBC Morphology NOTED Polychromasia 2+ (3-5) Microcytosis 1+ (5-14) Macrocytosis 1+ (5-14) [place] Cells 2+ (3-5) Acanthocytes (Spur) 2+ (3-5) VBG pH VBG pCO2 VBG pO2 VBG HCO3 VBG O2 Saturation VBG Base Excess Anion Gap 15 Estim Creat Clear Calc 146.2 Estimated GFR > 60 Random Glucose 164 H Calcium 7.6 L Phosphorus Magnesium Blood Type B Positive Antibody Screen NEGATIVE Crossmatch See Detail 07/15/22 07/16/22 07/16/22 20:05 03:05 04:20 MCV 89.3 MCH 29.0 MCHC 32.5 RDW 17.9 H Plt Count 183 MPV 9.4 Immature Gran % (Auto) Cancelled Neut % (Auto) Cancelled Lymph % (Auto) Cancelled [place] % (Auto) Cancelled Eos % (Auto) Cancelled Baso % (Auto) Cancelled Lymph # (Auto) Cancelled [place] # (Auto) Cancelled Eos # (Auto) Cancelled Baso # (Auto) Cancelled Abs Immat Gran (auto) Cancelled Absolute Neuts (auto) Cancelled Absolute Nucleated RBC 0.000 Nucleated RBC % (auto) 0.0 Neutrophils % (Manual) 65 Band Neutrophils % 19 H Lymphocytes % (Manual) 12 L Atypical Lymphs % (Man) Monocytes % (Manual) 3 Basophils % (Manual) 1 Abs Neuts (Manual) 6.4 Lymphocytes # (Manual) 0.9 L Atyp Lymphs # (Manual) Monocytes # (Manual) 0.2 Basophils # (Manual) 0.1 Smudge Cells PRES Toxic Granulation Toxic Vacuolation Dohle Bodies PRESENT Platelet Estimate SLIGHTLY DECREASED Large Platelets Plt Morphology Comment NORMAL RBC Morphology NOTED Polychromasia Microcytosis Macrocytosis 1+ (5-14) Susan Cells 1+ (0-2) Acanthocytes (Spur) VBG pH 7.42 VBG pCO2 34 VBG pO2 60 VBG HCO3 22 VBG O2 Saturation 90.0 VBG Base Excess -1.6 Anion Gap 15 Estim Creat Clear Calc 164.5 Estimated GFR > 60 Random Glucose 160 H Calcium 7.5 L Phosphorus Magnesium 1.7 Blood Type Antibody Screen Crossmatch 07/16/22 07/16/22 04:20 04:26 MCV MCH MCHC RDW Plt Count MPV Immature Gran % (Auto) Neut % (Auto) Lymph % (Auto) [place] % (Auto) Eos % (Auto) Baso % (Auto) Lymph # (Auto) [place] # (Auto) Eos # (Auto) Baso # (Auto) Abs Immat Gran (auto) Absolute Neuts (auto) Absolute Nucleated RBC Nucleated RBC % (auto) Neutrophils % (Manual) Band Neutrophils % Lymphocytes % (Manual) Atypical Lymphs % (Man) Monocytes % (Manual) Basophils % (Manual) Abs Neuts (Manual) Lymphocytes # (Manual) Atyp Lymphs # (Manual) Monocytes # (Manual) Basophils # (Manual) Smudge Cells Toxic Granulation Toxic Vacuolation Dohle Bodies Platelet Estimate Large Platelets Plt Morphology Comment RBC Morphology Polychromasia Microcytosis Macrocytosis Susan Cells Acanthocytes (Spur) VBG pH 7.41 VBG pCO2 35 VBG pO2 49 VBG HCO3 23 VBG O2 Saturation 77.0 VBG Base Excess -1.1 Anion Gap 17 Estim Creat Clear Calc 156.7 Estimated GFR > 60 Random Glucose 166 H Calcium 7.6 L Phosphorus 3.6 Magnesium 1.7 Blood Type Antibody Screen Crossmatch Procedures Date of Service Date of Service: 07/16/22 Arterial Line Size (Gauge): 16 Progress Note: A&P Assessment and plan (1) S/P colectomy: Status: Acute Assessment and Plan: patient is a 62-year-old female who is postop day 3 status post subtotal colectomy and end ileostomy for toxic megacolon doing really quite well. She still in a septic state but improving and her respiratory i Status is So much better. she remains under the care of the ICU and plan is to continue her supportive care. Trickle feeds if not going to be extubated but it seems like she may be continue with IV antibiotics as directed by ICU an infectious Diseases. Ostomy is working slowly. Time Spent With Patient Time: Total time spent is greater than 50% in coordination of care (as documented) at patient's floor/unit and/or counseling patient: Quality Stroke Does the patient have a stroke diagnosis?: No VTE Prior VTE?: No VTE Risk Level:: Medical - moderate - high VTE Device Contraindication: N/A - Device Ordered VTE Drug Contraindication: N/A - Med Ordered
--- NOTE | 2022-07-16 19:03 | PC.NURSE ---
Addendum entered by Sophy Flores RN 07/16/22 19:36: ILEOSTOMY RLQ OUTPUT 250 ML THIS SHIFT DARK BROWN LIQUID SCANT YELLOW OUTPUT TO T-TUBE DRAIN LUQ 17:50 VENT SETTINGS AC 18/350/5/30% Original Note: 08:00 PROPOFOL PAUSED FOR SEDATION VACATION V[facility] [employer]TINGS AC 18/350/5/30% 10:00 VENT SETTINGS PS 15/5 30% PER MD 17:37 PROPOFOL RESUMED @20 MCG/KG/MIN ABD DRESSING CHANGED 08:30 - CHLORAHEXIDINE CLEANED, GAUZE AND ABD PADS HEAD TO TOE BATH PROVIDED 08:45 PT REPOSITIONED q2h, PREVALON SYSTEM APPLIED
[2022-07-16] MEDS: levoFLOXacin/D5W 500 MG/100 ML PIGGYBACK 100 MG IV (19:50)
[2022-07-17] VITALS (35 sets, daily range): BP systolic 103–151; BP diastolic 50–83; PULSE 102–131; RESP 12–32; TEMP -17.4–37.5; O2SAT 92–100; BMI 37.7
[2022-07-17] MEDS: propofoL 1,000 MG/100 ML VIAL 16.27 MG IVCONT (03:10)
[2022-07-17 05:38] LABS: VBG Base Excess -2.2 mmol/L; VBG HCO3 21 mmol/L (22-26); VBG pCO2 31 mmHg; VBG pH 7.43 (7.32-7.43); VBG pO2 140 mmHg
[2022-07-17 05:39] LABS: Mean Corpuscular HGB Conc 32.7 g/dl (31.0-35.0); Mean Corpuscular Hemoglobin 29.5 pg (27.0-33.0); Mean Corpuscular Volume 90.2 fL (80.0-98.0); Mean Platelet Volume 9.6 fL (9.4-12.3); Platelet Count 179 X10*3/uL (160-400); Red Blood Count 2.24 X10*6/uL (4.20-5.50); Red Cell Distribution Width 17.2 % (11.0-16.0); White Blood Count 7.5 X10*3/uL (4.8-10.8)
[2022-07-17] MEDS: metroNIDAZOLE/NS 500 MG/100 ML PIGGYBACK 100 MG IV ×3 (05:45→22:20)
[2022-07-17 06:04] LABS: Alanine Aminotransferase < 6 U/L (0-31); Albumin Level 1.9 g/dL (3.5-5.0); Alkaline Phosphatase 59 U/L (39-117); Anion Gap 14 (12-20); Aspartate Amino Transferase 7 U/L (5-31); Bilirubin Total 0.4 mg/dL (0.0-1.0); Blood Urea Nitrogen 13 mg/dL (9-16); Calcium 7.2 mg/dL (8.4-10.2); Carbon Dioxide 20 mmol/L (22-29); Chloride 101 mmol/L (96-108); Creatinine Clr Calc Pharmacy 171.9; Estimated Glomerular Filt Rate > 60; Glucose Random 174 mg/dL (60-115); Magnesium 1.8 mg/dL (1.6-2.6); Phosphorus 3.3 mg/dL (2.7-4.5); Potassium 3.1 mmol/L (3.3-5.1); Sodium 132 mmol/L (135-145); Total Protein 3.8 g/dL (6.5-8.0)
[2022-07-17 06:13] LABS: Hematocrit 20.2 % (37.0-47.0); Hemoglobin 6.6 g/dl (12.0-16.0)
[2022-07-17 06:20] LABS: Band Neutrophils Percent 10 % (3-5); Lymphocytes Absolute Manual 1.1 X10*3/uL (1.2-4.9); Lymphocytes Percent Manual 14 % (20-40); Monocytes Absolute Manual 0.5 X10*3/uL (0.1-1.2); Monocytes Percent Manual 7 % (2-11); Neutrophils Absolute Manual 5.9 X10*3/uL (2.0-8.3); Neutrophils Percent Manual 69 % (45-73); Venous Blood Gas Refer to POC result
[2022-07-17 06:21] LABS: RBC Morphology NOTED
[2022-07-17 06:22] LABS: Burr Cells 1+ (0-2) /OIF; Dohle Bodies PRESENT; Large Platelet PRESENT; Macrocytosis 1+ (5-14) /OIF; Ovalocytes 1+ (5-14) /OIF; Platelet Estimate NORMAL (NORMAL); Platelet Morphology Comment NOTED; Toxic Granulation PRESENT
[2022-07-17 06:23] LABS: Polychromasia 1+ (0-2) /OIF
[2022-07-17] MEDS: Chlorhexidine Gluc Oral Rinse 15 ML MOUTHWASH BUCCAL (07:30)
[2022-07-17] MEDS: Famotidine/PF 20 MG/2 ML VIAL IVPUSH (07:30)
[2022-07-17] MEDS: Heparin Sodium,Porcine Flush 50 UNITS, 0.9 % Sodium Chloride Flush 5 ML IVFLUSH ×3 (07:30→20:20)
[2022-07-17] MEDS: 0.9 % Sodium Chloride Flush 3 ML SYRINGE IVFLUSH ×3 (07:31→23:22)
[2022-07-17] MEDS: Nystatin Powder 15 GM BOTTLE 1 APPL TOPICAL ×2 (07:31→20:22)
[2022-07-17] MEDS: Voriconazole 200 MG in 0.9 % Sodium Chloride 100 ML 50 MG IV ×2 (08:57→20:22)
--- NOTE | 2022-07-17 09:03 | PM.CCPN ---
Subjective Subjective Date of Service: 07/17/22 Interval History: Mrs. 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 The patient is a 62 year old female with history of Crohn's disease who presented to the ED May 18 complaining of abdominal pain.? She?d been treated as an outpatient with prednisone for a presumed Crohn?s flare.? On the morning of presentation, she developed sudden onset of sharp abdom pain.? Initial CT scan suggested severe constipation and a question of partial obstruction with worsening severe colitis of the sigmoid colon and proctitis, with increased wall thickening.? There was no evidence of free air.? She was treated with opiates and Zosyn.? The patient was admitted to Medicine and started on systemic steroids. The patient had no relief and therefore underwent flex sig by Dr. Peralta on May 23 at which he found a large abscess cavity in the sigmoid with some associated ulceration and stool.? Post procedure the patient had significant worsening of her abdominal exam; stat ct showed free air and fluid with a pelvic abscess.? She was taken directly to the OR where a large perforation of the distal sigmoid was found.? There was extensive peritoneal fecal soilage, w marked indurated peritonitis especially in the pelvis.? She underwent lysis of adhesions, and sigmoid resection and colostomy.? The anesthetic course was marked by progressive septic shock.? The abdomen was closed and the patient was brought out intubated to ICU. The patient had an initial brook course in the ICU, with deep shock and marked hypovolemia.? Echo showed normal right and left heart, with hyperdynamic function and small IVC.? The patient was volume resuscitated and continued on Meropenam.? Her renal indices lakshmi, but creat crested at 1.7. ?She developed fever and multiple intraabdominal abscesses and had mult drains placed in IR.? She was put on TPN.? She was extubated on 06/07.? Subsequently was put on tube feeds.? She had high residuals and was put on Reglan and erythromycin.? She had some anxiety and mild ICU encephalopathy, along w moderate ICU myopathy.? She was vigorously diuresed with a Lasix drip. On 06/13 she was found to have a cold left foot, with loss of palp pulses and decreased capill refill.? Over the course of 3 hours or so, the foot warmed up and capill refill returned to normal.? We started her on heparin.? Arterial duplex US showed no hemod signif stenosis.? Aortic CTA w runoff showed a short segment of limited contrast opacification of the distal left tibialis anterior just above the ankle, artifactual vs focal stenosis, more likely the former, w subsequent opacification/flow within the dorsalis pedis.? Otherwise, patent runoff bilaterally, w no hemodynamically significant stenosis or arterial cutoff.? We stopped the heparin after 24 hrs. The patient had a persistently elevated white count.? In consultation with ID, antibiotics were discontinued Jun 17.? The patient was discharged from the ICU to the floor on June 18.? She was recovering on the floor.? On June 22, she had an IR guided drainage 500 cc of purulent fluid from a LUQ abscess.? She was given voriconazole. ?On June 30, a repeat CT showed diffuse mural thickening involving the entire colon consistent with inflammatory/infectious colitis. ?She tested positive for C diff. ?On July 11, she started having worsening abdominal pain with some bloody output in her stoma.? Repeat CT on Jul 12 showed diffuse prominent colitis from the cecum through the colostomy.? She had worsened pain and distention.? On Jul 13 she was taken to the OR for E-lap and was found to have toxic megacolon.? She underwent subtotal colectomy and end ileostomy.? The procedure was extremely difficult and prolonged 2? adhesions, and was complicated by multiple enterotomies which were primarily closed.? She developed progressive septic shock during the procedure, complicated by marked hypovolemia and coagulopathy.? EBL was 2000cc.? She was given multiple units of blood, FFP, and cryo. Postop echo but Dr. Pinedo still showed hyperdynamic LV function with no significant RV dysfunction.? She was put on linezolid Levaquin and Flagyl.? She was given two more units of blood on Jul 14. Today she?s easily arousable on propofol 30ug and fentanyl 75ug.? Also on vasopressin at 0.04 units and TPN 75cc/hr.? HR 110, SR, BP 121/68.? On PSV 10/30%/+5, RR is 15, Vt 420cc, Ve 6.5L, PIP 16cm, ETCO2 34, Sat 97%.? CVBG this morn 7.43/31/-2.? Afebrile.? No JVD at 30?.? Chest shows good excursion, clear to auscultation, normal expiratory phase.? The abdomen is mildly rotund, not distended.? Wound margins are clean but dark thin fluid oozes along almost the entire margin, hollie the lower aspect.? (I suspect serous fluid with old blood.)? Decreased bowel sounds but present. ?The belly is soft, not markedly tender.? I watched the surgical PA change the dressing.? She has gross anasarca. Total i/o balance is positive 24 liters. LABORATORY DATA:? Below.? Notably, WBC normal.? Hb down to 6.6.? Renal 13/0.3, Na 132, bicarb 20, potassium 3.1, Mag 1.8, alb 1.9. IMPRESSION: 1. Underlying obesity. 2. Perforated viscus w fecal peritonitis.? Suspect she perforated the morning of admission when she had sudden onset pain.? The pathology report showed no evidence of Crohn?s. 3. Post op CDiff colitis with toxic megacolon.? Now s/p colectomy.? She had mult enterotomies during the procedure.? So far, the post op course has been relatively complication free. 4. Acute resp failure.? Expect to extubated shortly. 5. Gross anasarca.? Also undoubtedly has signif ascites.? Needs major diuresis.? Start Lasix drip.? That should dry up a lot of her wound drainage. 6. ID:? On Levaquin and flagyl.? Given that she?s afebrile and has normal WBC, and she?s not grossly septic or SIRS, that?s evidence that those abx are adequate.? The only question now is, how long?? I?ve asked Dr. Nielsen to weigh in. 7. Anemia.? Still equilibrating from her surgery.? No gross evidence of bleeding.? Transfuse one unit this morning. 8. Hyperglycemia.? No need for insulin at present. 9. Hyponatremia.? She?ll come up to normal w diuresis. 10. Hypokalemia.? Repleting. 11. Hypomagnasemia.? Repleting. 12. DVT proph.? Given continuing Hb loss, she?s currently only ICS. 13. Nutrition.? Continue TPN.? Start trickle feeds.? We placed a Kaofeed tube. ADDENDUM:? Extubated without incident.? Sat 95% on 3L NC.? Talking softly and appropriate. Critical care time (including full chart rev and hospital course summary; d/w dietitian and pharmacy):? 90 min. Critical Care Time (minutes): 90 Physical Exam Vital Signs: Vital Signs: Last Vital Signs Temp 98.9 F 07/17/22 08:59 Pulse 115 H 07/17/22 08:59 Resp 24 H 07/17/22 08:59 BP 127/73 07/17/22 08:59 Pulse Ox 97 07/17/22 08:00 O2 Del Method 07/17/22 08:00 O2 Flow Rate 100 07/13/22 19:12 FiO2 30 07/17/22 08:00 Oxygen Flow Rate 35 06/13/22 21:00 BMI result Body Mass Index 37.7 Objective Data Labs CBC & Chem 7: 07/17/22 05:16 07/17/22 05:16 Labs: Laboratory Results - last 24 hr 07/12/22 07/17/22 07/17/22 19:25 05:16 05:16 WBC 7.5 RBC 2.24 L Hgb 6.6 L* Hct 20.2 L* MCV 90.2 MCH 29.5 MCHC 32.7 RDW 17.2 H Plt Count 179 MPV 9.6 Immature Gran % (Auto) Cancelled Neut % (Auto) Cancelled Lymph % (Auto) Cancelled [place] % (Auto) Cancelled Eos % (Auto) Cancelled Baso % (Auto) Cancelled Lymph # (Auto) Cancelled [place] # (Auto) Cancelled Eos # (Auto) Cancelled Baso # (Auto) Cancelled Abs Immat Gran (auto) Cancelled Absolute Neuts (auto) Cancelled Absolute Nucleated RBC 0.000 Nucleated RBC % (auto) 0.0 Neutrophils % (Manual) 69 Band Neutrophils % 10 H Lymphocytes % (Manual) 14 L Monocytes % (Manual) 7 Abs Neuts (Manual) 5.9 Lymphocytes # (Manual) 1.1 L Monocytes # (Manual) 0.5 Toxic Granulation PRESENT Dohle Bodies PRESENT Platelet Estimate NORMAL Large Platelets PRESENT Plt Morphology Comment NOTED RBC Morphology NOTED Polychromasia 1+ (0-2) Macrocytosis 1+ (5-14) Ovalocytes 1+ (5-14) Susan Cells 1+ (0-2) VBG pH VBG pCO2 VBG pO2 VBG HCO3 VBG O2 Saturation VBG Base Excess Sodium 132 L Potassium 3.1 L Chloride 101 Carbon Dioxide 20 L Anion Gap 14 BUN 13 Creatinine 0.38 L Estim Creat Clear Calc 171.9 Estimated GFR > 60 Random Glucose 174 H Calcium 7.2 L Phosphorus 3.3 Magnesium 1.8 Total Bilirubin 0.4 AST 7 ALT < 6 Alkaline Phosphatase 59 D Total Protein 3.8 L Albumin 1.9 L Blood Type B Positive Antibody Screen NEGATIVE Crossmatch See Detail 07/17/22 07/17/22 05:33 07:07 WBC RBC Hgb Hct MCV MCH MCHC RDW Plt Count MPV Immature Gran % (Auto) Neut % (Auto) Lymph % (Auto) [place] % (Auto) Eos % (Auto) Baso % (Auto) Lymph # (Auto) [place] # (Auto) Eos # (Auto) Baso # (Auto) Abs Immat Gran (auto) Absolute Neuts (auto) Absolute Nucleated RBC Nucleated RBC % (auto) Neutrophils % (Manual) Band Neutrophils % Lymphocytes % (Manual) Monocytes % (Manual) Abs Neuts (Manual) Lymphocytes # (Manual) Monocytes # (Manual) Toxic Granulation Dohle Bodies Platelet Estimate Large Platelets Plt Morphology Comment RBC Morphology Polychromasia Macrocytosis Ovalocytes Susan Cells VBG pH 7.43 VBG pCO2 31 VBG pO2 140 VBG HCO3 21 L VBG O2 Saturation 100.0 VBG Base Excess -2.2 Sodium Potassium Chloride Carbon Dioxide Anion Gap BUN Creatinine Estim Creat Clear Calc Estimated GFR Random Glucose Calcium Phosphorus Magnesium Total Bilirubin AST ALT Alkaline Phosphatase Total Protein Albumin Blood Type B Positive Antibody Screen NEGATIVE Crossmatch See Detail Microbiology Microbiology Results: Microbiology 07/13/22 16:31 Abscess Rectal Gram Stain - Final 07/13/22 16:31 Abscess Rectal Routine Culture - Final 06/02/22 Unknown Abscess Intra-abdominal Fungal Identification - Final Verónica dubliniensis 06/22/22 16:30 Abdominal Fluid Gram Stain - Final 06/22/22 16:30 Abdominal Fluid Routine Culture - Final [place] albicans 06/22/22 16:30 Abdominal Fluid Anaerobic Culture - Final NO GROWTH AFTER 5 DAYS 06/30/22 07:05 Blood - Venous Blood Culture - Final Corynebacterium species 07/01/22 16:44 Blood - Venous Blood Culture - Final No growth after 5 days. 07/01/22 16:45 Blood - Venous Blood Culture - Final No growth after 5 days. 06/30/22 07:05 Blood - Venous Blood Culture - Final No growth after 5 days. 06/27/22 01:16 Blood - Venous Blood Culture - Final No growth after 5 days. 06/27/22 01:16 Blood - Venous Blood Culture - Final No growth after 5 days. 06/24/22 06:14 Blood - Venous Blood Culture - Final No growth after 5 days. 06/24/22 06:14 Blood - Venous Blood Culture - Final No growth after 5 days. 06/03/22 15:28 Blood - Subclavian Blood Culture - Final No growth after 5 days. 06/03/22 06:15 Blood - Venous Blood Culture - Final No growth after 5 days. 06/03/22 06:15 Blood - Venous Blood Culture - Final No growth after 5 days. 06/02/22 Unknown Peritoneal Fluid Gram Stain - Final 06/02/22 Unknown Peritoneal Fluid Routine Culture - Final Ver[place]ica albicans 06/02/22 Unknown Peritoneal Fluid Anaerobic Culture - Final 05/29/22 15:14 Blood - Venous Blood Culture - Final No growth after 5 days. 05/29/22 15:13 Blood - Venous Blood Culture - Final No growth after 5 days. 05/29/22 05:14 Blood - Venous Blood Culture - Final No growth after 5 days. 05/29/22 05:14 Blood - Venous Blood Culture - Final No growth after 5 days. 06/02/22 Unknown Abscess Intra-abdominal Gram Stain - Final 06/02/22 Unknown Abscess Intra-abdominal Routine Culture - Final 06/02/22 Unknown Abscess Intra-abdominal Anaerobic Culture - Final 06/02/22 Unknown Abscess Intra-abdominal Gram Stain - Final 06/02/22 Unknown Abscess Intra-abdominal Routine Culture - Final 05/28/22 Unknown Peritoneal Fluid Gram Stain - Final 05/28/22 Unknown Peritoneal Fluid Anaerobic Culture - Final 05/28/22 Unknown Peritoneal Fluid Body Fluid Culture - Final Verónica dubliniensis 05/29/22 15:05 Sputum - Suctioned Gram Stain - Final 05/29/22 15:05 Sputum - Suctioned Sputum Culture - Final Verónica dubliniensis 05/28/22 16:47 Sputum - Suctioned Gram Stain - Final 05/28/22 16:47 Sputum - Suctioned Sputum Culture - Final Ver[place]ica albicans 05/23/22 Unknown Peritoneal Fluid Gram Stain - Final 05/23/22 Unknown Peritoneal Fluid Routine Culture - Final Escherichia coli 05/23/22 Unknown Peritoneal Fluid Anaerobic Culture - Final Clostridium perfringens Bacteroides thetaiotaomicron 05/19/22 08:49 Blood - Venous Blood Culture - Final No growth after 5 days. 05/19/22 08:49 Blood - Venous Blood Culture - Final No growth after 5 days. Quality Stroke Does the patient have a stroke diagnosis?: No VTE Prior VTE?: No VTE Risk Level:: Medical - moderate - high VTE Device Contraindication: N/A - Device Ordered VTE Drug Contraindication: N/A - Med Ordered Critical Care Time Critical Care Time (minutes): 90
--- NOTE | 2022-07-17 09:50 | PM.PNGS ---
Subjective Subjective Date of Service: 07/18/22 Interval history: Seems to have done okay over the weekend Stoma functioning well Remains intubated On low-dose pressors Was taken off sedation yesterday for a few hours Physical Exam Vital Signs: Vital Signs: Last Vital Signs Temp 98.9 F 07/17/22 08:59 Pulse 114 H 07/17/22 09:00 Resp 19 07/17/22 09:00 BP 127/73 07/17/22 09:00 Pulse Ox 99 07/17/22 09:00 O2 Del Method 07/17/22 09:00 O2 Flow Rate 100 07/13/22 19:12 FiO2 30 07/17/22 09:00 Oxygen Flow Rate 35 06/13/22 21:00 BMI result Body Mass Index 37.7 Const: Other: Intubated, on ventilator and sedated Resp: Other: On vent Cardio: Rate: tachycardic GI: Other: Soft, some serous drainage from the incision, stoma with good output, bilious Objective Data Active Medications Chlorhexidine Gluconate (Chlorhexidine Gluc Oral Rinse 15 Ml Mouthwash) 15 ml BUCCAL TID [facility] Last Admin: 07/17/22 07:30 Dose: 15 ml Documented By: ISH Heparin Sodium (Porcine) 50 (units/ Sodium Chloride 5 ml) 0 units IVFLUSH TID [facility] Last Admin: 07/17/22 07:30 Dose: 50 unit Documented By: ISH Famotidine (Famotidine/Pf 20 Mg/2 Ml Vial) 20 mg IVPUSH DAILY [facility] Last Admin: 07/17/22 07:30 Dose: 20 mg Documented By: ISH Metronidazole (Flagyl) 500 mg in 100 mls @ 100 mls/hr IV Q8H [facility] Last Infusion: 07/17/22 06:52 Dose: 0 mls/hr Documented By: RIOS Voriconazole 200 mg/ Sodium (Chloride) 100 mls @ 50 mls/hr IV Q12H [facility] Last Admin: 07/17/22 08:57 Dose: 50 mls/hr Documented By: ISH Propofol (Diprivan) 1,000 mg in 100 mls @ 0 mls/hr IVCONT .Q0M [facility]; Protocol Last Titration: 07/17/22 08:03 Dose: 0 mcg/kg/min, 0 mls/hr Documented By: ISH Fentanyl (Sublimaze/Ns) 1,000 mcg in 100 mls @ 0 mls/hr IVCONT .Q0M [facility]; Protocol Last Admin: 07/16/22 22:48 Dose: 75 mcg/hr, 7.5 mls/hr Documented By: RIOS Vasopressin 20 unit/ Sodium (Chloride) 101 mls @ 9.09 mls/hr IVCONT .Q11H7M [facility] Last Infusion: 07/17/22 08:04 Dose: 0.03 unit/min, 9.09 mls/hr Documented By: ISH Norepinephrine Bitartrate (Levophed) 8 mg in 250 mls @ 0 mls/hr IVCONT .Q0M [facility]; Protocol Last Titration: 07/15/22 00:09 Dose: 0 mcg/kg/min, 0 mls/hr Documented By: RIOS Levofloxacin (Levaquin) 500 mg in 100 mls @ 100 mls/hr IV Q24H [facility] Last Infusion: 07/16/22 20:52 Dose: 0 mls/hr Documented By: RIOS Potassium Chloride 40 meq/Sodium Chloride 70 meq/Magnesium Sulfate 10 meq/Potassium Phosphate 30 mmol/Calcium Gluconate 9.3 meq/Multivitamins 11 ml/ Trace Metals 1.1 ml/ Amino Acids/Dextrose 1,800 mls @ 75 mls/hr IV DAILY@1800 [facility] Stop: 07/17/22 17:59 Last Admin: 07/16/22 17:31 Dose: 75 mls/hr Documented By: CARLEEN Naloxone HCl (Naloxone Hcl 0.4 Mg/Ml Vial) 0.2 mg IVPUSH Q2M PRN PRN Reason: Excessive sedation or RR < 8 Patient Own Med ( (Ajovy 1.5 Ml)) 1.5 ml SUBCUT Q30D [facility] Last Admin: 06/30/22 13:56 Dose: 1.5 ml Documented By: LAKESHIA Nystatin (Nystatin Powder 15 Gm Bottle) 1 appl TOPICAL BID [facility]; Protocol Last Admin: 07/17/22 07:31 Dose: 1 appl Documented By: ISH Pharmacy Consult (Consult Rx Perform Med Rec) 1 each MISCELLANE ONCE PRN PRN Reason: Consult order Sodium Chloride (0.9 % Sodium Chloride Flush 3 Ml Syringe) 3 ml IVFLUSH QSHIFT [facility] Last Admin: 07/17/22 07:31 Dose: 3 ml Documented By: ISH Sumatriptan Succinate (Sumatriptan Succinate 6 Mg/0.5 Ml Vial) 6 mg SUBCUT DAILY PRN PRN Reason: migraine headache Last Admin: 07/11/22 16:21 Dose: 6 mg Documented By: SANTOS Labs CBC & Chem 7: 07/18/22 05:15 07/18/22 07:15 Labs: Laboratory Results - last 24 hr 07/17/22 07/17/22 07/17/22 05:16 05:16 05:33 MCV 90.2 MCH 29.5 MCHC 32.7 RDW 17.2 H Plt Count 179 MPV 9.6 Immature Gran % (Auto) Cancelled Neut % (Auto) Cancelled Lymph % (Auto) Cancelled [place] % (Auto) Cancelled Eos % (Auto) Cancelled Baso % (Auto) Cancelled Lymph # (Auto) Cancelled [place] # (Auto) Cancelled Eos # (Auto) Cancelled Baso # (Auto) Cancelled Abs Immat Gran (auto) Cancelled Absolute Neuts (auto) Cancelled Absolute Nucleated RBC 0.000 Nucleated RBC % (auto) 0.0 Neutrophils % (Manual) 69 Band Neutrophils % 10 H Lymphocytes % (Manual) 14 L Monocytes % (Manual) 7 Abs Neuts (Manual) 5.9 Lymphocytes # (Manual) 1.1 L Monocytes # (Manual) 0.5 Toxic Granulation PRESENT Dohle Bodies PRESENT Platelet Estimate NORMAL Large Platelets PRESENT Plt Morphology Comment NOTED RBC Morphology NOTED Polychromasia 1+ (0-2) Macrocytosis 1+ (5-14) Ovalocytes 1+ (5-14) Susan Cells 1+ (0-2) VBG pH 7.43 VBG pCO2 31 VBG pO2 140 VBG HCO3 21 L VBG O2 Saturation 100.0 VBG Base Excess -2.2 Anion Gap 14 Estim Creat Clear Calc 171.9 Estimated GFR > 60 Random Glucose 174 H Calcium 7.2 L Phosphorus 3.3 Magnesium 1.8 Total Bilirubin 0.4 AST 7 ALT < 6 Alkaline Phosphatase 59 D Total Protein 3.8 L Albumin 1.9 L Blood Type Antibody Screen Crossmatch 07/17/22 07:07 MCV MCH MCHC RDW Plt Count MPV Immature Gran % (Auto) Neut % (Auto) Lymph % (Auto) [place] % (Auto) Eos % (Auto) Baso % (Auto) Lymph # (Auto) [place] # (Auto) Eos # (Auto) Baso # (Auto) Abs Immat Gran (auto) Absolute Neuts (auto) Absolute Nucleated RBC Nucleated RBC % (auto) Neutrophils % (Manual) Band Neutrophils % Lymphocytes % (Manual) Monocytes % (Manual) Abs Neuts (Manual) Lymphocytes # (Manual) Monocytes # (Manual) Toxic Granulation Dohle Bodies Platelet Estimate Large Platelets Plt Morphology Comment RBC Morphology Polychromasia Macrocytosis Ovalocytes [place] Cells VBG pH VBG pCO2 VBG pO2 VBG HCO3 VBG O2 Saturation VBG Base Excess Anion Gap Estim Creat Clear Calc Estimated GFR Random Glucose Calcium Phosphorus Magnesium Total Bilirubin AST ALT Alkaline Phosphatase Total Protein Albumin Blood Type B Positive Antibody Screen NEGATIVE Crossmatch See Detail Procedures Date of Service Date of Service: 07/17/22 Arterial Line Size (Gauge): 16 Progress Note: A&P Assessment and plan (1) S/P colectomy: Status: Acute Assessment and Plan: Stoma with good function Wound care Vent management Transfuse for low hemoglobin Urine output adequate ICU care Time Spent With Patient Time: Total time spent is greater than 50% in coordination of care (as documented) at patient's floor/unit and/or counseling patient: Quality Stroke Does the patient have a stroke diagnosis?: No VTE Prior VTE?: No VTE Risk Level:: Medical - moderate - high VTE Device Contraindication: N/A - Device Ordered VTE Drug Contraindication: N/A - Med Ordered
--- NOTE | 2022-07-17 10:19 | MHC.CM.PN ---
Cm continues to follow patient for STR post-hospitalization. No change in d/c plan at this time.
[2022-07-17] MEDS: fentaNYL citrate/NS 1,000 MCG/100 ML PLAST..BAG 7.5 MCG IVCONT (10:28)
--- NOTE | 2022-07-17 10:40 | MHC.CLN ---
Addendum entered by Pavithra Grider, PK 07/17/22 11:40: SPOKE WITH MD PT NOW EXTUBATED REQUESTING TRICKLE FEED KAOFEED TUBE TO BE PLACED TODAY RECOMMEND VITAL 1.5 AT 10ML/HR CONTINUE TPN REC BELOW AT THIS TIME Original Note: F/U PT REMAINS INTUBATED WITH TPN DISCUSSED AT ROUNDS WITH PT RECEIVING [id number] AT 75ML/HR PROVIDES 1278KCALS, 90G PROTEIN (1.4G/KG) DISCUSSED WITH PHARMACY OBTAINING TRIG LEVEL TODAY RECOMMEND ADDING 23ML OF 20% LIPIDS TODAY TO PROVIDE AN ADDITIONAL 552KCALS (1830KCALS TOTAL; 28KCALS/KG) REPLETE LYTES NEEDED
[2022-07-17] MEDS: HYDROmorphone HCl 1 MG/ML SYRINGE IVPUSH ×7 (11:25→23:21)
[2022-07-17] MEDS: fentaNYL citrate/NS 1,000 MCG/100 ML PLAST..BAG 5 MCG IVCONT (11:27)
[2022-07-17 11:35] LABS: Triglycerides 96 mg/dL
[2022-07-17] MEDS: Furosemide 20 MG/2 ML VIAL IVPUSH (13:18)
[2022-07-17] MEDS: Furosemide 200 MG in 0.9 % Sodium Chloride 80 ML IVCONT (13:58)
[2022-07-17] MEDS: Magnesium Sulfate/H2O 2 GM/50 ML PIGGYBACK IV (15:06)
[2022-07-17] MEDS: Potassium Chloride/H20 40 MEQ/100 ML PIGGYBACK 100 MEQ IV (15:09)
[2022-07-17] MEDS: Metoprolol Tartrate 25 MG TABLET G-TUBE ×2 (15:49→20:20)
[2022-07-17] MEDS: Potassium Chloride/H20 40 MEQ/100 ML PIGGYBACK 50 MEQ IV (17:30)
[2022-07-17] MEDS: Fat Emulsions 20% 250 ML 20.83 ML IV (17:35)
[2022-07-18] VITALS (25 sets, daily range): BP systolic 98–127; BP diastolic 57–76; PULSE 101–128; RESP 11–32; TEMP 36.8–37.1; O2SAT 92–100; BMI 36.1
[2022-07-18] MEDS: HYDROmorphone HCl 1 MG/ML SYRINGE IVPUSH ×12 (01:52→23:51)
[2022-07-18] MEDS: metroNIDAZOLE/NS 500 MG/100 ML PIGGYBACK 100 MG IV ×3 (05:18→22:21)
[2022-07-18 05:23] LABS: VBG Base Excess 1.4 mmol/L; VBG HCO3 27 mmol/L (22-26); VBG pCO2 52 mmHg; VBG pH 7.32 (7.32-7.43); VBG pO2 44 mmHg
[2022-07-18] MEDS: fentaNYL citrate/NS 1,000 MCG/100 ML PLAST..BAG 5 MCG IVCONT (05:30)
[2022-07-18 05:35] LABS: Venous Blood Gas Refer to POC result
[2022-07-18 06:21] LABS: Hematocrit 29.8 % (37.0-47.0); Hemoglobin 9.4 g/dl (12.0-16.0); Mean Corpuscular HGB Conc 31.5 g/dl (31.0-35.0); Mean Corpuscular Hemoglobin 29.4 pg (27.0-33.0); Mean Corpuscular Volume 93.1 fL (80.0-98.0); Mean Platelet Volume 9.6 fL (9.4-12.3); Platelet Count 253 X10*3/uL (160-400); Red Cell Distribution Width 16.8 % (11.0-16.0); White Blood Count 8.6 X10*3/uL (4.8-10.8)
[2022-07-18 06:34] LABS: Alanine Aminotransferase 7 U/L (0-31); Alkaline Phosphatase 79 U/L (39-117); Anion Gap 13 (12-20); Aspartate Amino Transferase 8 U/L (5-31); Bilirubin Total 0.3 mg/dL (0.0-1.0); Blood Urea Nitrogen 11 mg/dL (9-16); Calcium 7.6 mg/dL (8.4-10.2); Carbon Dioxide 27 mmol/L (22-29); Chloride 109 mmol/L (96-108); Creatinine Clr Calc Pharmacy 159.5; Estimated Glomerular Filt Rate > 60; Glucose Random 204 mg/dL (60-115); Magnesium 2.8 mg/dL (1.6-2.6); Phosphorus 3.9 mg/dL (2.7-4.5); Potassium 3.6 mmol/L (3.3-5.1); Sodium 145 mmol/L (135-145); Total Protein 4.4 g/dL (6.5-8.0)
[2022-07-18] MEDS: Famotidine/PF 20 MG/2 ML VIAL IVPUSH (07:49)
[2022-07-18] MEDS: Albumin Human 25 % 100 ML IV ×4 (07:50→10:02)
[2022-07-18] MEDS: Heparin Sodium,Porcine Flush 50 UNITS, 0.9 % Sodium Chloride Flush 5 ML IVFLUSH ×2 (07:50→14:18)
[2022-07-18] MEDS: Metoprolol Tartrate 25 MG TABLET G-TUBE ×2 (07:51→10:32)
[2022-07-18] MEDS: Voriconazole 200 MG in 0.9 % Sodium Chloride 100 ML 50 MG IV ×2 (07:51→20:20)
[2022-07-18] MEDS: Nystatin Powder 15 GM BOTTLE 1 APPL TOPICAL ×2 (07:51→20:05)
[2022-07-18] MEDS: 0.9 % Sodium Chloride Flush 3 ML SYRINGE IVFLUSH ×3 (07:52→23:49)
[2022-07-18 08:34] LABS: Anion Gap 15 (12-20); Blood Urea Nitrogen 12 mg/dL (9-16); Carbon Dioxide 25 mmol/L (22-29); Chloride 109 mmol/L (96-108); Potassium 3.7 mmol/L (3.3-5.1); Sodium 145 mmol/L (135-145)
[2022-07-18] MEDS: Potassium Chloride Packet 20 MEQ PACKET 40 MEQ NG-TUBE ×3 (08:34→15:49)
[2022-07-18 08:35] LABS: Calcium 7.6 mg/dL (8.4-10.2); Creatinine Clr Calc Pharmacy 155.6; Estimated Glomerular Filt Rate > 60; Glucose Random 217 mg/dL (60-115)
[2022-07-18 08:50] LABS: Phosphorus 3.8 mg/dL (2.7-4.5)
--- NOTE | 2022-07-18 08:52 | P.PNCC_ITS ---
Subjective Subjective Date of Service: 07/18/22 Interval History: Mrs. Hankins was transferred back to the ICU on June 12 from the OR after emergent exploratory laparotomy and subtotal colectomy for C diff colitis with toxic megacolon. The patient is a 62 year old female with history of Crohn's disease who presented to the ED May 18 complaining of abdominal pain.? She?d been treated as an outpatient with prednisone for a presumed Crohn?s flare.? On the morning of presentation, she developed sudden onset of sharp abdom pain.? Initial CT scan suggested severe constipation and a question of partial obstruction with worsening severe colitis of the sigmoid colon and proctitis, with increased wall thickening.? There was no evidence of free air.? She was treated with opiates and Zosyn.? The patient was admitted to Medicine and started on systemic steroids. The patient had no relief and therefore underwent flex sig by Dr. Peralta on May 23 at which he found a large abscess cavity in the sigmoid with some asso ciated ulceration and stool.? Post procedure the patient had significant worsening of her abdominal exam; stat ct showed free air and fluid with a pelvic abscess.? She was taken directly to the OR where a large perforation of the distal sigmoid was found.? There was extensive peritoneal fecal soilage, w marked indurated peritonitis especially in the pelvis.? She underwent lysis of adhesions, and sigmoid resection and colostomy.? The anesthetic course was marked by progressive septic shock.? The abdomen was closed and the patient was brought out intubated to ICU. The patient had an initial brook course in the ICU, with deep shock and marked hypovolemia.? Echo showed normal right and left heart, with hyperdynamic function and small IVC.? The patient was volume resuscitated and continued on Meropenam.? Her renal indices lakshmi, but creat crested at 1.7.? She developed f ever and multiple intraabdominal abscesses and had mult drains placed in IR.? She was put on TPN.? She was extubated on 06/07.? Subsequently was put on tube feeds.? She had high residuals and was put on Reglan and erythromycin.? She had some anxiety and mild ICU encephalopathy, along w moderate ICU myopathy.? She was vigorously diuresed with a Lasix drip. On 06/13 she was found to have a cold left foot, with loss of palp pulses and decreased capill refill.? Over the course of 3 hours or so, the foot warmed up and capill refill returned to normal.? We started her on heparin.? Arterial duplex US showed no hemod signif stenosis.? Aortic CTA w runoff showed a short segment of limited contrast opacification of the distal left tibialis anterior just above the ankle, artifactual vs focal stenosis, more likely the former, w subsequent opacification/flow within the dorsalis pedis.? Otherwise, patent runoff bilaterally, w no hemodynamically significant stenosis or arterial c utoff.? We stopped the heparin after 24 hrs. The patient had a persistently elevated white count.? In consultation with ID, antibiotics were discontinued Jun 17.? The patient was discharged from the ICU to the floor on June 18.? She was recovering on the floor.? On June 22, she had an IR guided drainage 500 cc of purulent fluid from a LUQ abscess.? She was given voriconazole.? On June 30, a repeat CT showed diffuse mural thickening involving the entire colon consistent with inflammatory/infectious colitis.? She tested positive for C diff.? On July 11, she started having worsening abdominal pain with some bloody output in her stoma.? Repeat CT on Jul 12 showed diffuse prominent colitis from the cecum through the colostomy.? She had worsened pain and distention.? On Jul 13 she was taken to the OR for E-lap and was found to have toxic megacolon.? She underwent subtotal colectomy and end ileostomy.? The procedure was extremely difficult and prolonged 2? adhesions, and was complicated by multiple enterotomies which were primarily closed.? She d eveloped progressive septic shock during the procedure, complicated by marked hypovolemia and coagulopathy.? EBL was 2000cc.? She was given multiple units of blood, FFP, and cryo. Postop echo but Dr. Pinedo still showed hyperdynamic LV function with no significant RV dysfunction.? She was put on linezolid Levaquin and Flagyl.? She was given two more units of blood on Jul 14. The patient was extubated yesterday without incident.? Pressors came off and she was started on a Lasix drip bec of massive anasarca.? We put a Kaofeed tube in and started her on trickle tube feeds.? We stopped her Levaquin.? She continues on Flagyl and voriconazole. Today looks much better.? Mental status is more clear, she?s more animated, and she?s obviously smaller after diuresing about 6L over 24hours.? She continues on TPN, Fentanyl 50ug, and Lasix 3mg/hr.? Afebrile.? HR 109.? BP 103/60.? RR about 20, nonlabored, w Sat 98% on 2L NC.? Sat 95% on 1L NC.? CBG this morn 7.32/52/+1.? No JVD at 30?.? Chest shows good excursion, clear to auscultation, normal expiratory phase.? The abdomen is mildly rotund, not distended.? About 200cc in the ostomy bag.? Dressings are dry.? Decreased bowel sounds but present. ?The belly is soft, not markedly tender. ?Still has gross anasarca, but obviously much less than yesterday.? 3-4/5 strength in both UEs.? Hardly any movement in LEs.? Both feet are warm. Total i/o balance is positive 20 liters (down 4L from yest.). LABORATORY DATA:? Below.? Notably, Hb up to 9.4 after transfusion of 1 unit RBCs and diuresis.? Renal indices steady, Na up to 145, bicarb up to 27, potassium 3.7, alb 2.0. IMPRESSION: 1. Underlying obesity. 2. Perforated viscus w fecal peritonitis.? Suspect she perforated the morning of admission when she had sudden onset pain.? The pathology report showed no evidence of Crohn?s. 3. Post op CDiff colitis with toxic megacolon.? Required very difficult reexploration and colectomy.? She had mult enterotomies during the procedure.? So far, the post op course has been relatively complication free. 4. Acute resp failure.? Resolved. 5. Gross anasarca.? Also undoubtedly has/had signif ascites.? Still needs major diuresis. ?Doing well w Lasix drip.? A lot of her wound drainage should dry up. 6. Tachycardia.? Likely 2? SIRS.? Increase metoprolol to 50 mg bid. 7. ID:? Levaquin was d/c?d yesterday.? Continuing on Flagyl and voriconazole for another six days. 8. Anemia.? Hb is rising with diuresis. 9. Hyperglycemia.? No need for insulin at present. 10. Hyponatremia.? Na came up to normal w diuresis and will probably be high tomorrow. 11. Hypokalemia.? Repleting. 12. Neuro/psych.? Only very mildly confused.? Getting better by the day.? ? When to restart duloxetine and topiramate. 13. Significant ICU myopathy.? Improving very slowly. 14. DVT proph.? Restart Lovenox. 15. Nutrition.? Continue TPN.? Increase tube feeds to 20cc/hr.? Today will prob be the last day of TPN. Critical Care Time (minutes): 0 Physical Exam Vital Signs: Vital Signs: Last Vital Signs Temp 98.8 F 07/18/22 08:00 Pulse 113 H 07/18/22 08:00 Resp 12 07/18/22 08:00 BP 107/61 07/18/22 08:00 Pulse Ox 97 07/18/22 08:00 O2 Del Method 07/18/22 08:00 O2 Flow Rate 2 07/18/22 08:00 FiO2 30 07/17/22 10:00 Oxygen Flow Rate 35 06/13/22 21:00 BMI result Body Mass Index 36.1 Objective Data Labs CBC & Chem 7: 07/18/22 05:15 07/18/22 07:15 Labs: Laboratory Results - last 24 hr 07/17/22 07/17/22 07/18/22 07:07 11:10 05:15 WBC 8.6 RBC 3.20 L D Hgb 9.4 L D Hct 29.8 L D MCV 93.1 MCH 29.4 MCHC 31.5 RDW 16.8 H Plt Count 253 D MPV 9.6 Absolute Nucleated RBC 0.000 Nucleated RBC % (auto) 0.0 VBG pH VBG pCO2 VBG pO2 VBG HCO3 VBG O2 Saturation VBG Base Excess Sodium Potassium Chloride Carbon Dioxide Anion Gap BUN Creatinine Estim Creat Clear Calc Estimated GFR Random Glucose Calcium Phosphorus Magnesium Total Bilirubin AST ALT Alkaline Phosphatase Total Protein Albumin Triglycerides 96 Blood Type B Positive Antibody Screen NEGATIVE Crossmatch See Detail 07/18/22 07/18/22 07/18/22 05:15 05:17 07:15 WBC RBC Hgb Hct MCV MCH MCHC RDW Plt Count MPV Absolute Nucleated RBC Nucleated RBC % (auto) VBG pH 7.32 VBG pCO2 52 VBG pO2 44 VBG HCO3 27 H VBG O2 Saturation 71.0 VBG Base Excess 1.4 Sodium 145 145 Potassium 3.6 3.7 Chloride 109 H 109 H Carbon Dioxide 27 25 Anion Gap 13 15 BUN 11 12 Creatinine 0.40 L 0.41 L Estim Creat Clear Calc 159.5 155.6 Estimated GFR > 60 > 60 Random Glucose 204 H 217 H Calcium 7.6 L 7.6 L Phosphorus 3.9 3.8 Magnesium 2.8 H 2.0 Total Bilirubin 0.3 AST 8 ALT 7 Alkaline Phosphatase 79 D Total Protein 4.4 L Albumin 2.0 L 2.0 L Triglycerides Blood Type Antibody Screen Crossmatch Microbiology Microbiology Results: Microbiology 07/16/22 18:40 Blood - Venous Blood Culture - Preliminary No growth after 24 hours. 07/16/22 18:40 Blood - Venous Blood Culture - Preliminary No growth after 24 hours. 07/13/22 16:31 Abscess Rectal Gram Stain - Final 07/13/22 16:31 Abscess Rectal Routine Culture - Final 06/02/22 Unknown Abscess Intra-abdominal Fungal Identification - Final Verónica dubliniensis 06/22/22 16:30 Abdominal Fluid Gram Stain - Final 06/22/22 16:30 Abdominal Fluid Routine Culture - Final Verónica albicans 06/22/22 16:30 Abdominal Fluid Anaerobic Culture - Final NO GROWTH AFTER 5 DAYS 06/30/22 07:05 Blood - Venous Blood Culture - Final Corynebacterium species 07/01/22 16:44 Blood - Venous Blood Culture - Final No growth after 5 days. 07/01/22 16:45 Blood - Venous Blood Culture - Final No growth after 5 days. 06/30/22 07:05 Blood - Venous Blood Culture - Final No growth after 5 days. 06/27/22 01:16 Blood - Venous Blood Culture - Final No growth after 5 days. 06/27/22 01:16 Blood - Venous Blood Culture - Final No growth after 5 days. 06/24/22 06:14 Blood - Venous Blood Culture - Final No growth after 5 days. 06/24/22 06:14 Blood - Venous Blood Culture - Final No growth after 5 days. 06/03/22 15:28 Blood - Subclavian Blood Culture - Final No growth after 5 days. 06/03/22 06:15 Blood - Venous Blood Culture - Final No growth after 5 days. 06/03/22 06:15 Blood - Venous Blood Culture - Final No growth after 5 days. 06/02/22 Unknown Peritoneal Fluid Gram Stain - Final 06/02/22 Unknown Peritoneal Fluid Routine Culture - Final Verónica albicans 06/02/22 Unknown Peritoneal Fluid Anaerobic Culture - Final 05/29/22 15:14 Blood - Venous Blood Culture - Final No growth after 5 days. 05/29/22 15:13 Blood - Venous Blood Culture - Final No growth after 5 days. 05/29/22 05:14 Blood - Venous Blood Culture - Final No growth after 5 days. 05/29/22 05:14 Blood - Venous Blood Culture - Final No growth after 5 days. 06/02/22 Unknown Abscess Intra-abdominal Gram Stain - Final 06/02/22 Unknown Abscess Intra-abdominal Routine Culture - Final 06/02/22 Unknown Abscess Intra-abdominal Anaerobic Culture - Final 06/02/22 Unknown Abscess Intra-abdominal Gram Stain - Final 06/02/22 Unknown Abscess Intra-abdominal Routine Culture - Final 05/28/22 Unknown Peritoneal Fluid Gram Stain - Final 05/28/22 Unknown Peritoneal Fluid Anaerobic Culture - Final 05/28/22 Unknown Peritoneal Fluid Body Fluid Culture - Final Verónica dubliniensis 05/29/22 15:05 Sputum - Suctioned Gram Stain - Final 05/29/22 15:05 Sputum - Suctioned Sputum Culture - Final Verónica dubliniensis 05/28/22 16:47 Sputum - Suctioned Gram Stain - Final 05/28/22 16:47 Sputum - Suctioned Sputum Culture - Final Verónica albicans 05/23/22 Unknown Peritoneal Fluid Gram Stain - Final 05/23/22 Unknown Peritoneal Fluid Routine Culture - Final Escherichia coli 05/23/22 Unknown Peritoneal Fluid Anaerobic Culture - Final Clostridium perfringens Bacteroides thetaiotaomicron 05/19/22 08:49 Blood - Venous Blood Culture - Final No growth after 5 days. 05/19/22 08:49 Blood - Venous Blood Culture - Final No growth after 5 days. Quality Stroke Does the patient have a stroke diagnosis?: No VTE Prior VTE?: No VTE Risk Level:: Medical - moderate - high VTE Device Contraindication: N/A - Device Ordered VTE Drug Contraindication: N/A - Med Ordered
[2022-07-18] MEDS: fentaNYL citrate/NS 1,000 MCG/100 ML PLAST..BAG 2.5 MCG IVCONT (09:01)
--- NOTE | 2022-07-18 10:12 | MHC.CLN ---
F/U DISCUSSED AT ROUNDS WITH MD MAGUIRE TUBE IN PLACE RUNNING VITAL 1.5 AT 10ML/HR PROVIDES 360KCALS, 16G PROTEIN, 183ML FREE WATER FROM FORMULA PT ALSO RECEIVING [id number] AT 75ML/HR PROVIDES 1278KCALS, 90G PROTEIN (1.4G/KG) RECOMMEND DECREASING TO 13ML OF 20% LIPIDS TODAY TO PROVIDE AN ADDITIONAL 312KCALS (1950KCALS TOTAL FROM TF, TPN, & LIPIDS; 30KCALS/KG, 106G TOTAL PROTEIN FROM TF AND TPN; 1.6G/KG) REPLETE LYTES NEEDED DISCUSSED WITH PHARMACY
--- NOTE | 2022-07-18 12:40 | PM.PNGS ---
Subjective Subjective Date of Service: 07/19/22 Interval history: extubated yesterday alert, conversing tolerating NGT feeds stoma functioning with good output Physical Exam Vital Signs: Vital Signs: Last Vital Signs Temp 98.8 F 07/18/22 08:00 Pulse 111 H 07/18/22 12:00 Resp 32 H 07/18/22 12:00 BP 111/67 07/18/22 12:00 Pulse Ox 95 07/18/22 12:00 O2 Del Method 07/18/22 12:00 O2 Flow Rate 2 07/18/22 12:00 FiO2 30 07/17/22 10:00 Oxygen Flow Rate 35 06/13/22 21:00 BMI result Body Mass Index 36.1 Const: Other: short of breath but conversing Cardio: Rate: tachycardic GI: Other: stoma with good output, incision clean Palpation (GI): Soft to palpation and no guarding Objective Data Active Medications Heparin Sodium (Porcine) 50 (units/ Sodium Chloride 5 ml) 0 units IVFLUSH TID [facility] Last Admin: 07/18/22 07:50 Dose: 50 unit Documented By: ISH Hydromorphone HCl (Hydromorphone Hcl 1 Mg/Ml Syringe) 1 mg IVPUSH Q1H PRN; Protocol PRN Reason: Pain, Moderate (Pain Scale 4-6 Last Admin: 07/18/22 11:08 Dose: 1 mg Documented By: ISH Metronidazole (Flagyl) 500 mg in 100 mls @ 100 mls/hr IV Q8H [facility] Last Infusion: 07/18/22 06:28 Dose: 0 mls/hr Documented By: YONATHAN Voriconazole 200 mg/ Sodium (Chloride) 100 mls @ 50 mls/hr IV Q12H [facility] Last Infusion: 07/18/22 10:05 Dose: 0 mls/hr Documented By: ISH Potassium Chloride 50 meq/Sodium Chloride 60 meq/Magnesium Sulfate 10 meq/Potassium Phosphate 30 mmol/Calcium Gluconate 9.3 meq/Multivitamins 11 ml/ Trace Metals 1.1 ml/ Amino Acids/Dextrose 1,800 mls @ 75 mls/hr IV DAILY@1800 [facility] Stop: 07/18/22 17:59 Last Admin: 07/17/22 17:35 Dose: 75 mls/hr Documented By: ISH Furosemide 200 mg/ Sodium (Chloride) 100 mls @ 1.5 mls/hr IVCONT .Q24H [facility] Last Infusion: 07/17/22 17:20 Dose: 3 mg/hr, 1.5 mls/hr Documented By: ISH Fentanyl (Sublimaze/Ns) 1,000 mcg in 100 mls @ 2.5 mls/hr IVCONT .Q24H [facility] Last Admin: 07/18/22 09:01 Dose: 25 mcg/hr, 2.5 mls/hr Documented By: ISH Potassium Chloride 50 meq/Sodium Chloride 50 meq/Magnesium Sulfate 10 meq/Potassium Phosphate 30 mmol/Calcium Gluconate 9.3 meq/Multivitamins 15 ml/ Trace Metals 1.5 ml/ Amino Acids/Dextrose 1,320 mls @ 55 mls/hr IV DAILY@1800 [facility] Stop: 07/19/22 17:59 Metoprolol Tartrate (Metoprolol Tartrate 50 Mg Tablet) 50 mg G-TUBE BID [facility]; Protocol Last Admin: 07/18/22 09:31 Dose: Not Given Documented By: ISH Non-Admin Reason: Physician Approved Patient Own Med ( (Ajovy 1.5 Ml)) 1.5 ml SUBCUT Q30D [facility] Last Admin: 06/30/22 13:56 Dose: 1.5 ml Documented By: LAKESHIA Nystatin (Nystatin Powder 15 Gm Bottle) 1 appl TOPICAL BID [facility]; Protocol Last Admin: 07/18/22 07:51 Dose: 1 appl Documented By: ISH Pharmacy Consult (Consult Rx Perform Med Rec) 1 each MISCELLANE ONCE PRN PRN Reason: Consult order Potassium Chloride (Potassium Chloride Packet 20 Meq Packet) 40 meq NG-TUBE Q4H [facility] Stop: 07/18/22 16:31 Last Admin: 07/18/22 08:34 Dose: 40 meq Documented By: ISH Sodium Chloride (0.9 % Sodium Chloride Flush 3 Ml Syringe) 3 ml IVFLUSH QSHIFT [facility] Last Admin: 07/18/22 07:52 Dose: 3 ml Documented By: ISH Sumatriptan Succinate (Sumatriptan Succinate 6 Mg/0.5 Ml Vial) 6 mg SUBCUT DAILY PRN PRN Reason: migraine headache Last Admin: 07/11/22 16:21 Dose: 6 mg Documented By: SANTOS Labs CBC & Chem 7: 07/19/22 05:14 07/19/22 05:14 Labs: Laboratory Results - last 24 hr 07/18/22 07/18/22 07/18/22 05:15 05:15 05:17 MCV 93.1 MCH 29.4 MCHC 31.5 RDW 16.8 H Plt Count 253 D MPV 9.6 Absolute Nucleated RBC 0.000 Nucleated RBC % (auto) 0.0 VBG pH 7.32 VBG pCO2 52 VBG pO2 44 VBG HCO3 27 H VBG O2 Saturation 71.0 VBG Base Excess 1.4 Anion Gap 13 Estim Creat Clear Calc 159.5 Estimated GFR > 60 Random Glucose 204 H Calcium 7.6 L Phosphorus 3.9 Magnesium 2.8 H Total Bilirubin 0.3 AST 8 ALT 7 Alkaline Phosphatase 79 D Total Protein 4.4 L Albumin 2.0 L 07/18/22 07:15 MCV MCH MCHC RDW Plt Count MPV Absolute Nucleated RBC Nucleated RBC % (auto) VBG pH VBG pCO2 VBG pO2 VBG HCO3 VBG O2 Saturation VBG Base Excess Anion Gap 15 Estim Creat Clear Calc 155.6 Estimated GFR > 60 Random Glucose 217 H Calcium 7.6 L Phosphorus 3.8 Magnesium 2.0 Total Bilirubin AST ALT Alkaline Phosphatase Total Protein Albumin 2.0 L Microbiology Microbiology Results: Microbiology 07/16/22 18:40 Blood Culture - Preliminary Blood - Venous No growth after 24 hours. 07/16/22 18:40 Blood Culture - Preliminary Blood - Venous No growth after 24 hours. Procedures Date of Service Date of Service: 07/18/22 Arterial Line Size (Gauge): 16 Progress Note: A&P Assessment and plan (1) S/P colectomy: Status: Acute Assessment and Plan: extubated good UO dressings changed stoma functioning on NGT feeds pain mgt doing well postop if with continuing good GI function - dc NGT and start PO feeds Time Spent With Patient Time: Total time spent is greater than 50% in coordination of care (as documented) at patient's floor/unit and/or counseling patient: Quality Stroke Does the patient have a stroke diagnosis?: No VTE Prior VTE?: No VTE Risk Level:: Medical - moderate - high VTE Device Contraindication: N/A - Device Ordered VTE Drug Contraindication: N/A - Med Ordered
[2022-07-18] MEDS: Furosemide 200 MG in 0.9 % Sodium Chloride 80 ML IVCONT (13:06)
--- NOTE | 2022-07-18 16:14 | PM.GIPN ---
Subjective Subjective Date of Service: 07/18/22 Interval History: some incisional pain Critical Care Time (minutes): 0 Physical Exam Vital Signs: Vital Signs: Last Vital Signs Temp 98.8 F 07/18/22 08:00 Pulse 118 H 07/18/22 16:00 Resp 20 07/18/22 16:00 BP 127/76 07/18/22 16:00 Pulse Ox 97 07/18/22 16:00 O2 Del Method Mechanical Ventil ation 07/18/22 16:00 O2 Flow Rate 2 07/18/22 16:00 FiO2 30 07/17/22 10:00 Oxygen Flow Rate 35 06/13/22 21:00 BMI result Body Mass Index 36.1 GI: Other: abdomen is soft Extrem: Other: edema Objective Data Labs CBC & Chem 7: 07/18/22 05:15 07/18/22 07:15 Labs: Laboratory Results - last 24 hr 07/18/22 07/18/22 07/18/22 05:15 05:15 05:17 WBC 8.6 RBC 3.20 L D Hgb 9.4 L D Hct 29.8 L D MCV 93.1 MCH 29.4 MCHC 31.5 RDW 16.8 H Plt Count 253 D MPV 9.6 Absolute Nucleated RBC 0.000 Nucleated RBC % (auto) 0.0 VBG pH 7.32 VBG pCO2 52 VBG pO2 44 VBG HCO3 27 H VBG O2 Saturation 71.0 VBG Base Excess 1.4 Sodium 145 Potassium 3.6 Chloride 109 H Carbon Dioxide 27 Anion Gap 13 BUN 11 Creatinine 0.40 L Estim Creat Clear Calc 159.5 Estimated GFR > 60 Random Glucose 204 H Calcium 7.6 L Phosphorus 3.9 Magnesium 2.8 H Total Bilirubin 0.3 AST 8 ALT 7 Alkaline Phosphatase 79 D Total Protein 4.4 L Albumin 2.0 L 07/18/22 07:15 WBC RBC Hgb Hct MCV MCH MCHC RDW Plt Count MPV Absolute Nucleated RBC Nucleated RBC % (auto) VBG pH VBG pCO2 VBG pO2 VBG HCO3 VBG O2 Saturation VBG Base Excess Sodium 145 Potassium 3.7 Chloride 109 H Carbon Dioxide 25 Anion Gap 15 BUN 12 Creatinine 0.41 L Estim Creat Clear Calc 155.6 Estimated GFR > 60 Random Glucose 217 H Calcium 7.6 L Phosphorus 3.8 Magnesium 2.0 Total Bilirubin AST ALT Alkaline Phosphatase Total Protein Albumin 2.0 L Procedures Date of Service Date of Service: 07/18/22 Arterial Line Size (Gauge): 16 Progress Note: A&P Assessment and plan (1) Megacolon, toxic: Status: Acute Assessment and Plan: doing well s/p colectomy for toxic megacolon continue supportive care Time Spent With Patient Time: Total time spent is greater than 50% in coordination of care (as documented) at patient's floor/unit and/or counseling patient: Quality Stroke Does the patient have a stroke diagnosis?: No VTE Prior VTE?: No VTE Risk Level:: Medical - moderate - high VTE Device Contraindication: N/A - Device Ordered VTE Drug Contraindication: N/A - Med Ordered
--- NOTE | 2022-07-18 17:22 | MHC.SL.SWA ---
Speech Pathologist Impression: Risk of Aspiration Due to: Hx of Recent Extubation Dysphasia Diet Status: Puree (NDD1) with THIN liquids, Pills crushed in puree. Liquid Consistency and Strategies for Safe Swallow: Liquid Intake Recommendation: Thin Liquid Intake Strategies: Small Sips Solid Food Consistency: Dietary Recommendations: Pureed (NDD1) Additional Modifications to Solid Foods: Pt requires 1-1 feed due to severe deconditioning, difficulty moving upper extremities at this time. Pt reports that during previous period of PO diet had some difficulty sustaining eating, taking small amounts at a time with breaks in between. Pt still w/ NG tube feeding, may take period of time transitioning to PO, may take only small amounts PO initially, should be closely managed and supervised nutritionally through transition. Oral Medication Intake: Crushed with Puree Please contact the pharmacy regarding appropriate crushable or liquid drug formulations that are available whenever modified delivery is recommended. Compensatory Strategies and Precautions to be Taken for Safe Swallow: Sitting Upright (90 deg) Liquids from Cup Liquids from Straw Small Bites and Sips Alternate Liquids/Solids Supervision While Eating and Drinking for Safe Swallow: Total Assistance (1:1) Foods to Avoid: Sticky or congealed purees. Swallowing Recommended Treatments: Compens. Strategy Educat. Recommendation for Speech: Inpatient Speech Therapy Comment: Pt presents with a mild oral phase dysphagia due to observed mild oral/lingual weakness during oral transit of bolus. Pt has limited stamina at this time for po, is currently on NG tube feeding, also transitioning to PO after extensive GI intervention. If cleared by GI, recommend START diet of PUREE (NDD1) with THIN liquids, Pills crushed in Puree. Pt may initially take only a small amount orally at any meal, would benefit from breaks and or frequent smaller meals. Pt will require full assistance for liquid and puree intake, as she is presenting with severe UE weakness from deconditioning. PK SAUER notified of recommendation by secure text, discussed with nursing in person. Frequency/Duration: M-F while inpatient. Date Range for Service Req: Timeline to reassess: Bleach Machine Operator Clinican/Clinical Fellow: No Supervisory Statement: I have reviewed and agree with the student/clinical fellow's documentation: N/A Speech Language Pathologist: Evette Talbert M.A., CCC-INSURANCE AGENCY OWNER
[2022-07-18 17:47] LABS: Glucose, Whole Blood 125 mg/dL (60-115)
[2022-07-18] MEDS: Metoprolol Tartrate 50 MG TABLET G-TUBE (20:05)
[2022-07-18] MEDS: Enoxaparin Sodium 80 MG/0.8 ML SYRINGE SUBCUT (23:49)
[2022-07-19] VITALS (29 sets, daily range): BP systolic 105–150; BP diastolic 47–86; PULSE 100–127; RESP 14–35; TEMP 36.3–37; O2SAT 92–99; BMI 37.0
[2022-07-19] MEDS: HYDROmorphone HCl 1 MG/ML SYRINGE IVPUSH ×12 (01:56→19:41)
[2022-07-19 05:23] LABS: VBG Base Excess 0.3 mmol/L; VBG HCO3 24 mmol/L (22-26); VBG pCO2 39 mmHg; VBG pO2 54 mmHg
[2022-07-19 05:27] LABS: Hematocrit 26.2 % (37.0-47.0); Hemoglobin 8.3 g/dl (12.0-16.0); Mean Corpuscular HGB Conc 31.7 g/dl (31.0-35.0); Mean Corpuscular Hemoglobin 29.4 pg (27.0-33.0); Mean Corpuscular Volume 92.9 fL (80.0-98.0); Mean Platelet Volume 9.9 fL (9.4-12.3); Platelet Count 258 X10*3/uL (160-400); Red Blood Count 2.82 X10*6/uL (4.20-5.50); Red Cell Distribution Width 16.9 % (11.0-16.0); White Blood Count 6.6 X10*3/uL (4.8-10.8)
[2022-07-19 05:45] LABS: Albumin Level 3.2 g/dL (3.5-5.0); Anion Gap 12 (12-20); Blood Urea Nitrogen 13 mg/dL (9-16); Carbon Dioxide 27 mmol/L (22-29); Chloride 106 mmol/L (96-108); Creatinine Clr Calc Pharmacy 147.1; Estimated Glomerular Filt Rate > 60; Glucose Random 206 mg/dL (60-115); Phosphorus 3.1 mg/dL (2.7-4.5); Sodium 141 mmol/L (135-145)
[2022-07-19 05:46] LABS: Venous Blood Gas Refer to POC result
[2022-07-19] MEDS: metroNIDAZOLE/NS 500 MG/100 ML PIGGYBACK 100 MG IV ×3 (05:48→22:11)
[2022-07-19] MEDS: Metoprolol Tartrate 50 MG TABLET G-TUBE ×2 (07:35→19:57)
[2022-07-19] MEDS: Heparin Sodium,Porcine Flush 50 UNITS, 0.9 % Sodium Chloride Flush 5 ML IVFLUSH ×3 (07:36→19:58)
[2022-07-19] MEDS: Albumin Human 25 % 100 ML IV ×2 (07:36→09:16)
[2022-07-19] MEDS: Nystatin Powder 15 GM BOTTLE 1 APPL TOPICAL ×2 (07:38→21:32)
[2022-07-19] MEDS: 0.9 % Sodium Chloride Flush 3 ML SYRINGE IVFLUSH ×3 (07:38→23:57)
[2022-07-19] MEDS: Voriconazole 200 MG in 0.9 % Sodium Chloride 100 ML 50 MG IV ×2 (08:03→21:16)
--- NOTE | 2022-07-19 08:18 | PM.PNGS ---
Subjective Subjective Date of Service: 07/20/22 Interval history: says she is ok good UO stoma functioning tolerating tube feeds Physical Exam Vital Signs: Vital Signs: Last Vital Signs Temp 97.5 F 07/19/22 08:00 Pulse 117 H 07/19/22 08:00 Resp 23 H 07/19/22 08:00 BP 139/78 07/19/22 08:00 Pulse Ox 95 07/19/22 08:00 O2 Del Method 07/19/22 08:00 O2 Flow Rate 2 07/19/22 08:00 FiO2 30 07/17/22 10:00 Oxygen Flow Rate 35 06/13/22 21:00 BMI result Body Mass Index 37.0 Const: Other: comnversant, some SOB Resp: Other: some SOB Cardio: Rate: tachycardic GI: Other: stoma with good output, incision with some drainange Palpation (GI): Soft to palpation and no guarding Objective Data Active Medications Heparin Sodium (Porcine) 50 (units/ Sodium Chloride 5 ml) 0 units IVFLUSH TID [facility] Last Admin: 07/19/22 07:36 Dose: 50 unit Documented By: IGNACIA Enoxaparin Sodium (Enoxaparin Sodium 80 Mg/0.8 Ml Syringe) 80 mg SUBCUT Q24H [facility] Last Admin: 07/18/22 23:49 Dose: 80 mg Documented By: LUIS Hydromorphone HCl (Hydromorphone Hcl 1 Mg/Ml Syringe) 1 mg IVPUSH Q1H PRN; Protocol PRN Reason: Pain, Moderate (Pain Scale 4-6 Last Admin: 07/19/22 07:35 Dose: 1 mg Documented By: IGNACIA Metronidazole (Flagyl) 500 mg in 100 mls @ 100 mls/hr IV Q8H [facility] Last Infusion: 07/19/22 07:04 Dose: 0 mls/hr Documented By: IGNACIA Voriconazole 200 mg/ Sodium (Chloride) 100 mls @ 50 mls/hr IV Q12H [facility] Last Admin: 07/19/22 08:03 Dose: 50 mls/hr Documented By: IGNACIA Furosemide 200 mg/ Sodium (Chloride) 100 mls @ 1.5 mls/hr IVCONT .Q24H [facility] Last Admin: 07/18/22 13:06 Dose: 3 mg/hr, 1.5 mls/hr Documented By: ISH Fentanyl (Sublimaze/Ns) 1,000 mcg in 100 mls @ 2.5 mls/hr IVCONT .Q24H [facility] Last Admin: 07/18/22 09:01 Dose: 25 mcg/hr, 2.5 mls/hr Documented By: ISH Potassium Chloride 50 meq/Sodium Chloride 50 meq/Magnesium Sulfate 10 meq/Potassium Phosphate 30 mmol/Calcium Gluconate 9.3 meq/Multivitamins 15 ml/ Trace Metals 1.5 ml/ Amino Acids/Dextrose 1,320 mls @ 55 mls/hr IV DAILY@1800 [facility] Stop: 07/19/22 17:59 Last Admin: 07/18/22 17:59 Dose: 55 mls/hr Documented By: ISH Albumin Human (Kedbumin 25 %) 100 mls @ 100 mls/hr IV Q1H [facility] Stop: 07/19/22 09:59 Last Admin: 07/19/22 07:36 Dose: 100 mls/hr Documented By: IGNACIA Metoprolol Tartrate (Metoprolol Tartrate 50 Mg Tablet) 50 mg G-TUBE BID [facility]; Protocol Last Admin: 07/19/22 07:35 Dose: 50 mg Documented By: IGNACIA Patient Own Med ( (Ajovy 1.5 Ml)) 1.5 ml SUBCUT Q30D [facility] Last Admin: 06/30/22 13:56 Dose: 1.5 ml Documented By: LAKESHIA Nystatin (Nystatin Powder 15 Gm Bottle) 1 appl TOPICAL BID [facility]; Protocol Last Admin: 07/19/22 07:38 Dose: 1 appl Documented By: IGNACIA Pharmacy Consult (Consult Rx Perform Med Rec) 1 each MISCELLANE ONCE PRN PRN Reason: Consult order Sodium Chloride (0.9 % Sodium Chloride Flush 3 Ml Syringe) 3 ml IVFLUSH QSHIFT [facility] Last Admin: 07/19/22 07:38 Dose: 3 ml Documented By: IGNACIA Sumatriptan Succinate (Sumatriptan Succinate 6 Mg/0.5 Ml Vial) 6 mg SUBCUT DAILY PRN PRN Reason: migraine headache Last Admin: 07/11/22 16:21 Dose: 6 mg Documented By: SANTOS Labs CBC & Chem 7: 07/19/22 17:22 07/20/22 05:11 Labs: Laboratory Results - last 24 hr 07/18/22 07/18/22 07/19/22 07:15 17:44 05:14 MCV 92.9 MCH 29.4 MCHC 31.7 RDW 16.9 H Plt Count 258 MPV 9.9 Absolute Nucleated RBC 0.000 Nucleated RBC % (auto) 0.0 VBG pH VBG pCO2 VBG pO2 VBG HCO3 VBG O2 Saturation VBG Base Excess Anion Gap 15 Estim Creat Clear Calc 155.6 Estimated GFR > 60 POC Glucose 125 H Random Glucose 217 H Calcium 7.6 L Phosphorus 3.8 Magnesium 2.0 Albumin 2.0 L 07/19/22 07/19/22 05:14 05:16 MCV MCH MCHC RDW Plt Count MPV Absolute Nucleated RBC Nucleated RBC % (auto) VBG pH 7.40 VBG pCO2 39 VBG pO2 54 VBG HCO3 24 VBG O2 Saturation 85.0 VBG Base Excess 0.3 Anion Gap 12 Estim Creat Clear Calc 147.1 Estimated GFR > 60 POC Glucose Random Glucose 206 H Calcium 8.0 L Phosphorus 3.1 Magnesium 2.0 Albumin 3.2 L Microbiology Microbiology Results: Microbiology 07/16/22 18:40 Blood Culture - Preliminary Blood - Venous No growth after 48 hours. 07/16/22 18:40 Blood Culture - Preliminary Blood - Venous No growth after 48 hours. Procedures Date of Service Date of Service: 07/20/22 Arterial Line Size (Gauge): 16 Progress Note: A&P Assessment and plan (1) S/P colectomy: Status: Acute Assessment and Plan: has been stable good UO tolerating enteral feeds ok to dc NGT - start PO feeds pain mgt coming along overall Time Spent With Patient Time: Total time spent is greater than 50% in coordination of care (as documented) at patient's floor/unit and/or counseling patient: Quality Stroke Does the patient have a stroke diagnosis?: No VTE Prior VTE?: No VTE Risk Level:: Medical - moderate - high VTE Device Contraindication: N/A - Device Ordered VTE Drug Contraindication: N/A - Med Ordered
--- NOTE | 2022-07-19 09:00 | MHC.CLN ---
Addendum entered by Pavithra Grider, PK 07/19/22 10:21: PLAN FOR TODAY 07/19/22: KAOFEED TUBE TO REMAIN IN PLACE D/C TPN VITAL 1.5 TO INCREASE TO 30ML/HR TO PROVIDE 1080KCALS, 49G PROTEIN DIET TO ADVANCE TO PUREED PER PIT SUPERVISOR RECOMMENDATIONS WILL ALSO RE-START ENSURE PLUS HIGH PROTEIN TID WITH MEALS (PT PREFERS STRAWBERRY OR VANILLA FLAVORS) STRICT PO INTAKE Original Note: F/U DISCUSSED AT ROUNDS WITH TF INCREASED TO VITAL 1.5 AT 20ML/HR YESTERDAY PROVIDED 720KCALS, 32G PROTEIN, 367ML FREE WATER IN ADDIITON, PT ALSO RECEIVED TPN [id number] AT 55ML/HR PROVIDED 937KCALS, 66G PROTEIN LIPIDS CANCELED WITH PHARMACY WHEN TF WAS INCREASED-PT DID NOT RECEIVE PIT SUPERVISOR EVAL COMPLETED AND RECOMMENDED PUREED DIET PER DR JAMES PT CAN START PO TODAY WILL RE-START ENSURE PLUS HIGH PROTEIN TID PT RECEPTIVE TO DRINKING DURING ADMISSION ON MEDICAL FLOOR STRICT PO INTAKE
--- NOTE | 2022-07-19 10:53 | MHC.SL.SWA ---
Speech Pathologist Impression: Risk of Aspiration Due to: Hx of Recent Extubation Dysphasia Diet Status: Pt currently NPO w/ enteric feeding. When cleared by GI, Medical team, recommend starting consistency of diet to be PUREE (NDD2) with THIN liquids, pills crushed in puree. As diet is tolerated, patient will be re-assessed for advancement of consistencies. Pt is currently very anxious about transition to PO. Liquid Consistency and Strategies for Safe Swallow: Liquid Intake Recommendation: Thin Liquid Intake Strategies: Small Sips Solid Food Consistency: Dietary Recommendations: Pureed (NDD1) Additional Modifications to Solid Foods: Pt requires 1-1 feed due to severe deconditioning, difficulty moving upper extremities at this time. Pt reports that during previous period of PO diet had some difficulty sustaining eating, taking small amounts at a time with breaks in between. Pt still w/ NG tube feeding, may take period of time transitioning to PO, may take only small amounts PO initially, should be closely managed and supervised nutritionally through transition. Oral Medication Intake: Crushed with Puree Please contact the pharmacy regarding appropriate crushable or liquid drug formulations that are available whenever modified delivery is recommended. Compensatory Strategies and Precautions to be Taken for Safe Swallow: Sitting Upright (90 deg) Liquids from Cup Liquids from Straw Small Bites and Sips Alternate Liquids/Solids Supervision While Eating and Drinking for Safe Swallow: Total Assistance (1:1) Foods to Avoid: Sticky or congealed purees. Swallowing Recommended Treatments: Compens. Strategy Educat. Recommendation for Speech: Inpatient Speech Therapy Comment: Pt was awake and alert, notably appearing short of breath, with O2 sats in 90s. Pt is still on enteric NG feeds, is pending transition to po, not currently on PO diet. Patient again today stated that she doesn't feel she can eat that much at any one time, is worried that she will be asked to force herself to eat. Positioned head of bed to 70 degrees, however patient expressed discomfort and it was lowered again slightly. Patient expressed interest in grape juice brought for trial this morning. Patient initially reached for cup, but then stated I can't do it, yesterday I gave myself a bath when I tried. Pt assisted to take two small sips, producing a timely oral phase, timely swallow. After swallow, pt. noted to burp and then cough, bust she stated that she did not think it went down the wrong way. Pt given straw sips of juice, again with some burping/wet voice after swallow. Patient was asked to tuck chin on swallow, after which voice was clear, no coughing, however patient again burped. Pt was offered choice of puree, but then refused stating I just don't feel like it. Pt notably was becoming more anxious, said she felt very uncomfortable, thought her abdomen looked swollen, asked for head of bed to be lowered. Nursing advised of patients c/o discomfort, anxiety. Frequency/Duration: M-F while inpatient. Date Range for Service Req: Timeline to reassess: Rehabilitation Services Counselor Clinican/Clinical Fellow: No Supervisory Statement: I have reviewed and agree with the student/clinical fellow's documentation: N/A Speech Language Pathologist: Evette Talbert M.A., CCC-ANGLE SHEAR SET UP OPERATOR
--- NOTE | 2022-07-19 12:10 | P.PNCC_ITS ---
Subjective Subjective Date of Service: 07/19/22 Interval History: Mrs. Hankins was transferred back to the ICU on June 12 from the OR after emergent exploratory laparotomy and subtotal colectomy for C diff colitis with toxic megacolon. The patient is a 62 year old female with history of Crohn's disease who presented to the ED May 18 complaining of abdominal pain.? She?d been treated as an outpatient with prednisone for a presumed Crohn?s flare.? On the morning of presentation, she developed sudden onset of sharp abdom pain.? Initial CT scan suggested severe constipation and a question of partial obstruction with worsening severe colitis of the sigmoid colon and proctitis, with increased wall thickening.? There was no evidence of free air.? She was treated with opiates and Zosyn.? The patient was admitted to Medicine and started on systemic steroids. The patient had no relief and therefore underwent flex sig by Dr. Peralta on May 23 at which he found a large abscess cavity in the sigmoid with some asso ciated ulceration and stool.? Post procedure the patient had significant worsening of her abdominal exam; stat ct showed free air and fluid with a pelvic abscess.? She was taken directly to the OR where a large perforation of the distal sigmoid was found.? There was extensive peritoneal fecal soilage, w marked indurated peritonitis especially in the pelvis.? She underwent lysis of adhesions, and sigmoid resection and colostomy.? The anesthetic course was marked by progressive septic shock.? The abdomen was closed and the patient was brought out intubated to ICU. The patient had an initial brook course in the ICU, with deep shock and marked hypovolemia.? Echo showed normal right and left heart, with hyperdynamic function and small IVC.? The patient was volume resuscitated and continued on Meropenam.? Her renal indices lakshmi, but creat crested at 1.7.? She developed f ever and multiple intraabdominal abscesses and had mult drains placed in IR.? She was put on TPN.? She was extubated on 06/07.? Subsequently was put on tube feeds.? She had high residuals and was put on Reglan and erythromycin.? She had some anxiety and mild ICU encephalopathy, along w moderate ICU myopathy.? She was vigorously diuresed with a Lasix drip. On 06/13 she was found to have a cold left foot, with loss of palp pulses and decreased capill refill.? Over the course of 3 hours or so, the foot warmed up and capill refill returned to normal.? We started her on heparin.? Arterial duplex US showed no hemod signif stenosis.? Aortic CTA w runoff showed a short segment of limited contrast opacification of the distal left tibialis anterior just above the ankle, artifactual vs focal stenosis, more likely the former, w subsequent opacification/flow within the dorsalis pedis.? Otherwise, patent runoff bilaterally, w no hemodynamically significant stenosis or arterial c utoff.? We stopped the heparin after 24 hrs. The patient had a persistently elevated white count.? In consultation with ID, antibiotics were discontinued Jun 17.? The patient was discharged from the ICU to the floor on June 18.? She was recovering on the floor.? On June 22, she had an IR guided drainage 500 cc of purulent fluid from a LUQ abscess.? She was given voriconazole. On June 30, a repeat CT showed diffuse mural thickening involving the entire colon consistent with inflammatory/infectious colitis.? She tested positive for C diff.? On July 11, she started having worsening abdominal pain with some bloody output in her stoma.? Repeat CT on Jul 12 showed diffuse prominent colitis from the cecum through the colostomy.? She had worsened pain and distention.? On Jul 13 she was taken to the OR for E-lap and was found to have toxic megacolon.? She underwent subtotal colectomy and end ileostomy.? The procedure was extremely difficult and prolonged 2? adhesions, and was complicated by multiple enterotomies which were primarily closed.? She developed progressive septic shock during the procedure, complicated by marked hypovolemia and coagulopathy.? EBL was 2000cc.? She was given multiple units of blood, FFP, and cryo. Postoperatively, she was transferred to the ICU.? Postop echo but Dr. Pinedo still showed hyperdynamic LV function with no significant RV dysfunction.? She was put on linezolid Levaquin and Flagyl.? She was given two more units of blood on Jul 14. The patient was extubated Jul 16 without incident.? Pressors came off and she was started on Lasix bec of massive anasarca.? We put a Kaofeed tube in and started her on trickle tube feeds.? We stopped her Levaquin.? She continues on Flagyl and voriconazole. Today looks better than yesterday.? Mental status and memory are more clear.? Grossly, she doesn?t look like she?s diuresed much compared with yesterday.? She continues on TPN, Fentanyl 25ug, and Lasix 3mg/hr.? Afebrile.? HR 113 on metoprolol 50mg bid.? BP 123/77.? RR 26, nonlabored, w Sat 95% on 2L NC.? CBG this morn 7.40/39/0.? No JVD at 30?.? Chest shows good excursion, clear to auscultation, normal expiratory phase.? The abdomen is mildly rotund, not distended.? The ostomy bag was just changed, there?s a small amount of dark thin fluid in it.? Dressings are dry.? Good bowel sounds today. ?The belly is soft, mildly tender, no change.? Still has gross anasarca, about the same as yesterday.? 3-4/5 strength in both UEs.? Barely any movement in LEs, not antigravity.? Both feet are warm. U/O is 2300 cc x 24hrs, net positive 195cc.? Net balance is positive 21 liters (up 1L from yest.). LABORATORY DATA:? Below.? Notably, Hb down 1 gram from yest.? Renal indices s teady, Na down to 141, bicarb up to 27, potassium and phosphorous repleted.? Alb up to 3.2 post albumin infusion.? Random glucose 206. IMPRESSION: 1. Underlying obesity. 2. Perforated viscus w fecal peritonitis.? Suspect she perforated the morning of admission when she had sudden onset pain.? The pathology report showed no evidence of Crohn?s. 3. Post op CDiff colitis with toxic megacolon.? Required very difficult reexploration and colectomy.? She had mult enterotomies during the procedure.? So far, the post op course has been relatively complication free. 4. Acute resp failure.? Resolved.? RR is up a little today.? Continue diuresis 5. Gross anasarca.? Undoubtedly also has/had signif ascites.? Still needs major diuresis.? Double Lasix to 6mg/hr. 6. Tachycardia.? Likely 2? SIRS.? Increase metoprolol to 50 mg tid. 7. ID:? Levaquin was d/c?d 07/17.? Continuing on Flagyl and voriconazole for another five days. 8. Anemia.? Hb lakshmi with diuresis. 9. Hyperglycemia.? No need for insulin at present.? May need to start tomorrow. 10. Hyponatremia.? Na came up to normal w diuresis. 11. Hypokalemia.? Repleted. 12. Neuro/psych.? Only very mildly confused.? Getting better by the day.? At some point we?ll restart duloxetine and topiramate. 13. Significant ICU myopathy.? Improving very slowly.? She?ll need extensive rehab. 14. DVT proph.? Restarted Lovenox yesterday. 15. Nutrition.? D/C TPN today.? Advance tube feeds.? Increase po intake as tolerated. Critical Care Time (minutes): 0 Physical Exam Vital Signs: Vital Signs: Last Vital Signs Temp 97.5 F 07/19/22 08:00 Pulse 106 H 07/19/22 11:00 Resp 28 H 07/19/22 11:00 BP 109/69 07/19/22 11:00 Pulse Ox 95 07/19/22 11:00 O2 Del Method 07/19/22 11:00 O2 Flow Rate 2 07/19/22 11:00 FiO2 30 07/17/22 10:00 Oxygen Flow Rate 35 06/13/22 21:00 BMI result Body Mass Index 37.0 Objective Data Labs CBC & Chem 7: 07/19/22 17:22 07/19/22 05:14 Labs: Laboratory Results - last 24 hr 07/18/22 07/19/22 07/19/22 17:44 05:14 05:14 WBC 6.6 RBC 2.82 L Hgb 8.3 L Hct 26.2 L MCV 92.9 MCH 29.4 MCHC 31.7 RDW 16.9 H Plt Count 258 MPV 9.9 Absolute Nucleated RBC 0.000 Nucleated RBC % (auto) 0.0 VBG pH VBG pCO2 VBG pO2 VBG HCO3 VBG O2 Saturation VBG Base Excess Sodium 141 Potassium 4.0 Chloride 106 Carbon Dioxide 27 Anion Gap 12 BUN 13 Creatinine 0.44 L Estim Creat Clear Calc 147.1 Estimated GFR > 60 POC Glucose 125 H Random Glucose 206 H Calcium 8.0 L Phosphorus 3.1 Magnesium 2.0 Albumin 3.2 L 07/19/22 05:16 WBC RBC Hgb Hct MCV MCH MCHC RDW Plt Count MPV Absolute Nucleated RBC Nucleated RBC % (auto) VBG pH 7.40 VBG pCO2 39 VBG pO2 54 VBG HCO3 24 VBG O2 Saturation 85.0 VBG Base Excess 0.3 Sodium Potassium Chloride Carbon Dioxide Anion Gap BUN Creatinine Estim Creat Clear Calc Estimated GFR POC Glucose Random Glucose Calcium Phosphorus Magnesium Albumin Microbiology Microbiology Results: Microbiology 07/16/22 18:40 Blood - Venous Blood Culture - Preliminary No growth after 48 hours. 07/16/22 18:40 Blood - Venous Blood Culture - Preliminary No growth after 48 hours. 07/13/22 16:31 Abscess Rectal Gram Stain - Final 07/13/22 16:31 Abscess Rectal Routine Culture - Final 06/02/22 Unknown Abscess Intra-abdominal Fungal Identification - Final Verónica dubliniensis 06/22/22 16:30 Abdominal Fluid Gram Stain - Final 06/22/22 16:30 Abdominal Fluid Routine Culture - Final Verónica albicans 06/22/22 16:30 Abdominal Fluid Anaerobic Culture - Final NO GROWTH AFTER 5 DAYS 06/30/22 07:05 Blood - Venous Blood Culture - Final Corynebacterium species 07/01/22 16:44 Blood - Venous Blood Culture - Final No growth after 5 days. 07/01/22 16:45 Blood - Venous Blood Culture - Final No growth after 5 days. 06/30/22 07:05 Blood - Venous Blood Culture - Final No growth after 5 days. 06/27/22 01:16 Blood - Venous Blood Culture - Final No growth after 5 days. 06/27/22 01:16 Blood - Venous Blood Culture - Final No growth after 5 days. 06/24/22 06:14 Blood - Venous Blood Culture - Final No growth after 5 days. 06/24/22 06:14 Blood - Venous Blood Culture - Final No growth after 5 days. 06/03/22 15:28 Blood - Subclavian Blood Culture - Final No growth after 5 days. 06/03/22 06:15 Blood - Venous Blood Culture - Final No growth after 5 days. 06/03/22 06:15 Blood - Venous Blood Culture - Final No growth after 5 days. 06/02/22 Unknown Peritoneal Fluid Gram Stain - Final 06/02/22 Unknown Peritoneal Fluid Routine Culture - Final Verónica albicans 06/02/22 Unknown Peritoneal Fluid Anaerobic Culture - Final 05/29/22 15:14 Blood - Venous Blood Culture - Final No growth after 5 days. 05/29/22 15:13 Blood - Venous Blood Culture - Final No growth after 5 days. 05/29/22 05:14 Blood - Venous Blood Culture - Final No growth after 5 days. 05/29/22 05:14 Blood - Venous Blood Culture - Final No growth after 5 days. 06/02/22 Unknown Abscess Intra-abdominal Gram Stain - Final 06/02/22 Unknown Abscess Intra-abdominal Routine Culture - Final 06/02/22 Unknown Abscess Intra-abdominal Anaerobic Culture - Final 06/02/22 Unknown Abscess Intra-abdominal Gram Stain - Final 06/02/22 Unknown Abscess Intra-abdominal Routine Culture - Final 05/28/22 Unknown Peritoneal Fluid Gram Stain - Final 05/28/22 Unknown Peritoneal Fluid Anaerobic Culture - Final 05/28/22 Unknown Peritoneal Fluid Body Fluid Culture - Final Verónica dubliniensis 05/29/22 15:05 Sputum - Suctioned Gram Stain - Final 05/29/22 15:05 Sputum - Suctioned Sputum Culture - Final Verónica dubliniensis 05/28/22 16:47 Sputum - Suctioned Gram Stain - Final 05/28/22 16:47 Sputum - Suctioned Sputum Culture - Final Verónica albicans 05/23/22 Unknown Peritoneal Fluid Gram Stain - Final 05/23/22 Unknown Peritoneal Fluid Routine Culture - Final Escherichia coli 05/23/22 Unknown Peritoneal Fluid Anaerobic Culture - Final Clostridium perfringens Bacteroides thetaiotaomicron 05/19/22 08:49 Blood - Venous Blood Culture - Final No growth after 5 days. 05/19/22 08:49 Blood - Venous Blood Culture - Final No growth after 5 days. Quality Stroke Does the patient have a stroke diagnosis?: No VTE Prior VTE?: No VTE Risk Level:: Medical - moderate - high VTE Device Contraindication: N/A - Device Ordered VTE Drug Contraindication: N/A - Med Ordered
[2022-07-19] MEDS: Furosemide 200 MG in 0.9 % Sodium Chloride 80 ML IVCONT (13:27)
--- NOTE | 2022-07-19 14:18 | PC.NURSE ---
Addendum entered by Arturo Corea RN 07/19/22 17:16: Patient able to sit higher in bed, but tachypnea, RR of 29-30, which was reported in the morning, has continued. Discussed with Dr Wilkerson again & he came to bedside to evaluate patient. Advanced SUE feed & repeat x-ray done. Addendum entered by Arturo Corea RN 07/19/22 15:37: In the morning colostomy appliance was changed r/t question of leak. No issues at this time. Putting out brown liquid stool. Mouth care, tooth brushing complete. lower abd dressings saturated again with serosang drainage. Dressings changed again at this time. Original Note: Shift eval: Assumed care at approx 0900. Patient alert, c/o pain, continuous. Plan of care changes with Dr Wilkerson: Plan to taper off Fentanyl drip - Stopped at 10:30. Pain control - giving patient PRN dilaudid (see MAR for admin record). DC TPN - increase rate of vital tube feed - stopped TPN & increased tube feed to 30ml/hr at 10:30 Advance diet to pureed - worked with speech and hearing for short time. Then ate small amt at lunch & drank water. Patient reports small appetite. Seen by Dr Hagan. Made aware about leaking abd incision areas near lower abd. Mid line dressing intact, left lower abd dressing changed r/t soaked from sero sang drainage. Bottom midline abd incision also draining moderate amt - dressing reinforced. Patient has had 2 negative tests for c-diff. Infection control advised to move patient to a new room and clean original room in order to take off precautions. Patient moved to [facility]. Sister, father & updated about plan of care. Patient alert, oriented, c/o abd pain - medicated w/ PRN dilaudid. Patient napped at approx 12:30 for about a half hour. Vitals stable, afebrile. Patient consistently ST 110-115.
--- NOTE | 2022-07-19 14:28 | MHC.CM.PN ---
Patient remains in ICU. CM continues to follow patient for d/c planning needs. D/C plan remains the same @ thsi time.
[2022-07-19 18:16] LABS: Lactic Acid 1.3 mmol/L (0.5-2.0)
[2022-07-19 18:20] LABS: Hemoglobin 8.3 g/dl (12.0-16.0); Mean Corpuscular HGB Conc 31.9 g/dl (31.0-35.0); Mean Corpuscular Hemoglobin 29.6 pg (27.0-33.0); Mean Corpuscular Volume 92.9 fL (80.0-98.0); Mean Platelet Volume 9.9 fL (9.4-12.3); Platelet Count 270 X10*3/uL (160-400); White Blood Count 6.6 X10*3/uL (4.8-10.8)
[2022-07-19] MEDS: Furosemide 40 MG/4 ML VIAL IVPUSH (19:58)
[2022-07-19] MEDS: HYDROmorphone HCl/NS 10 MG/50 ML PIGGYBACK IV (20:44)
[2022-07-19] MEDS: Metoprolol Tartrate 5 MG/5 ML VIAL IVPUSH (21:15)
--- NOTE | 2022-07-19 23:23 | PC.NURSE ---
Assumed care at 17:00, patient alert to drowsy, arousable spontaneously and to voice, oriented x4 but also forgetful and vague, moves all extremities and follows commands and responds slowly but appropriately. ICU CLERK started and dilaudid ICV prn orders to continue per MD. Patient had 8/10 pain before starting ICU CLERK, and down to 6/10 so far. Programmed pump with help of med/surg RNs as well as 2nd RN at bedside and with help of pharmacy. Patient also on lasix gtt 6 mg/hour, with goal per MD to diurese to 2-3 Liters negative by 7 am, diurested 2,430 ccs this evening from 17:00-23:00; also emptied Ileostomy for 400 ccs of liquid brown stool; also emptied T-tube at left posterior flank (dressing changed) for 10 ccs of yellow drainage with white precipitate. When turned right lateral, the abdominal incision leaked a moderate amount in a short amount of time of serosanguinous drainage, dressing changed as it was saturated and Dr. Zacarias was sent photos of incision and drainage as per PA's instructions. Incisions are well approximated and intact to jazmine, edematous around incisions. Edema throughout hands, feet, legs, and sacrum. Discussed patient's frequent requests for water with PA, and restricting to ice chips this evening.
[2022-07-20] VITALS (23 sets, daily range): BP systolic 115–143; BP diastolic 48–72; PULSE 96–113; RESP 16–34; TEMP 36.6–37.6; O2SAT 90–100; BMI 34.9
[2022-07-20] MEDS: Metoprolol Tartrate 50 MG TABLET G-TUBE ×2 (02:42→09:52)
[2022-07-20 05:16] LABS: VBG Base Excess 9.7 mmol/L; VBG HCO3 34 mmol/L (22-26); VBG pCO2 47 mmHg; VBG pH 7.47 (7.32-7.43); VBG pO2 45 mmHg
[2022-07-20] MEDS: metroNIDAZOLE/NS 500 MG/100 ML PIGGYBACK 100 MG IV ×2 (05:39→14:28)
[2022-07-20 05:44] LABS: Anion Gap 15 (12-20); Blood Urea Nitrogen 10 mg/dL (9-16); Calcium 7.9 mg/dL (8.4-10.2); Carbon Dioxide 31 mmol/L (22-29); Chloride 97 mmol/L (96-108); Creatinine Clr Calc Pharmacy 147.1; Estimated Glomerular Filt Rate > 60; Glucose Random 137 mg/dL (60-115); Magnesium 1.8 mg/dL (1.6-2.6); Phosphorus 2.7 mg/dL (2.7-4.5); Potassium 2.9 mmol/L (3.3-5.1); Sodium 140 mmol/L (135-145)
[2022-07-20 05:45] LABS: Venous Blood Gas Refer to POC result
[2022-07-20 06:08] LABS: Procalcitonin 0.32 ng/mL
--- NOTE | 2022-07-20 08:44 | P.PNGS_ITS ---
Subjective Subjective Date of Service: 07/21/22 Interval history: Tolerating enteral feeds well good stoma function some pain issues Physical Exam Vital Signs: Vital Signs: Last Vital Signs Temp 98.4 F 07/20/22 08:00 Pulse 103 H 07/20/22 08:00 Resp 22 H 07/20/22 08:00 BP 134/66 07/20/22 08:00 Pulse Ox 97 07/20/22 08:00 O2 Del Method 07/20/22 08:00 O2 Flow Rate 2 07/20/22 08:00 FiO2 30 07/17/22 10:00 Oxygen Flow Rate 35 06/13/22 21:00 BMI result Body Mass Index 34.9 Const: Other: shortness of breath as baseline, conversant Resp: Other: shortness of breath as per baseline Cardio: Rate: tachycardic GI: Other: ileostomy functioning well, incision with drainage Palpation (GI): Soft to palpation, not firm and no guarding Objective Data Active Medications Heparin Sodium (Porcine) 50 (units/ Sodium Chloride 5 ml) 0 units IVFLUSH TID [facility] Last Admin: 07/19/22 19:58 Dose: 50 unit Documented By: YONATHAN Enoxaparin Sodium (Enoxaparin Sodium 40 Mg/0.4 Ml Syringe) 40 mg SUBCUT Q24H [facility] Hydromorphone HCl (Hydromorphone Hcl 1 Mg/Ml Syringe) 1 mg IVPUSH Q1H PRN; Protocol PRN Reason: Pain, Moderate (Pain Scale 4-6 Last Admin: 07/19/22 19:41 Dose: 1 mg Documented By: YONATHAN Metronidazole (Flagyl) 500 mg in 100 mls @ 100 mls/hr IV Q8H [facility] Last Infusion: 07/20/22 07:39 Dose: 0 mls/hr Documented By: BROOKS Voriconazole 200 mg/ Sodium (Chloride) 100 mls @ 50 mls/hr IV Q12H [facility] Last Infusion: 07/20/22 00:05 Dose: 50 mls/hr Documented By: YONATHAN Furosemide 200 mg/ Sodium (Chloride) 100 mls @ 3 mls/hr IVCONT .Q24H [facility] Last Infusion: 07/19/22 16:22 Dose: 6 mg/hr, 3 mls/hr Documented By: GUNJAN Hydromorphone HCl (Dilaudid) 10 mg in 50 mls @ 0 mls/hr IV .Q0M [facility]; Protocol Last Admin: 07/19/22 20:44 Dose: 0.2 mg/hr, 1 mls/hr Documented By: FOREIGN Metoprolol Tartrate (Metoprolol Tartrate 50 Mg Tablet) 50 mg G-TUBE Q8H [facility]; Protocol Last Admin: 07/20/22 02:42 Dose: 50 mg Documented By: LUIS Patient Own Med ( (Ajovy 1.5 Ml)) 1.5 ml SUBCUT Q30D [facility] Last Admin: 06/30/22 13:56 Dose: 1.5 ml Documented By: LAKESHIA Nystatin (Nystatin Powder 15 Gm Bottle) 1 appl TOPICAL BID [facility]; Protocol Last Admin: 07/19/22 21:32 Dose: 1 appl Documented By: FOREIGN Pharmacy Consult (Consult Rx Perform Med Rec) 1 each MISCELLANE ONCE PRN PRN Reason: Consult order Sodium Chloride (0.9 % Sodium Chloride Flush 3 Ml Syringe) 3 ml IVFLUSH QSHIFT [facility] Last Admin: 07/19/22 23:57 Dose: 3 ml Documented By: LUIS Sumatriptan Succinate (Sumatriptan Succinate 6 Mg/0.5 Ml Vial) 6 mg SUBCUT DAILY PRN PRN Reason: migraine headache Last Admin: 07/11/22 16:21 Dose: 6 mg Documented By: SANTOS Labs CBC & Chem 7: 07/19/22 17:22 07/20/22 05:11 Labs: Laboratory Results - last 24 hr 07/19/22 07/19/22 07/20/22 17:22 17:22 05:10 MCV 92.9 MCH 29.6 MCHC 31.9 RDW 17.0 H Plt Count 270 MPV 9.9 Absolute Nucleated RBC 0.000 Nucleated RBC % (auto) 0.0 VBG pH 7.47 H VBG pCO2 47 VBG pO2 45 VBG HCO3 34 H VBG O2 Saturation 75.0 VBG Base Excess 9.7 Anion Gap Estim Creat Clear Calc Estimated GFR Random Glucose Lactic Acid 1.3 Calcium Phosphorus Magnesium Procalcitonin 07/20/22 07/20/22 05:11 05:11 MCV MCH MCHC RDW Plt Count MPV Absolute Nucleated RBC Nucleated RBC % (auto) VBG pH VBG pCO2 VBG pO2 VBG HCO3 VBG O2 Saturation VBG Base Excess Anion Gap 15 Estim Creat Clear Calc 147.1 Estimated GFR > 60 Random Glucose 137 H Lactic Acid Calcium 7.9 L Phosphorus 2.7 Magnesium 1.8 Procalcitonin 0.32 Procedures Date of Service Date of Service: 07/20/22 Arterial Line Size (Gauge): 16 Progress Note: A&P Assessment and plan (1) S/P colectomy: Status: Acute Assessment and Plan: improving Push p.o. intake consider removing NG tube and pushing for oral intake incentive spirometry pain management - she does not like the OWNER/OPERATOR pump replace potassium overall actually doing very well Time Spent With Patient Time: Total time spent is greater than 50% in coordination of care (as documented) at patient's floor/unit and/or counseling patient: Quality Stroke Does the patient have a stroke diagnosis?: No VTE Prior VTE?: No VTE Risk Level:: Medical - moderate - high VTE Device Contraindication: N/A - Device Ordered VTE Drug Contraindication: N/A - Med Ordered
[2022-07-20] MEDS: Potassium Chloride Packet 20 MEQ PACKET 80 MEQ PO (09:23)
[2022-07-20] MEDS: Voriconazole 200 MG in 0.9 % Sodium Chloride 100 ML 50 MG IV ×2 (09:23→20:34)
[2022-07-20] MEDS: Heparin Sodium,Porcine Flush 50 UNITS, 0.9 % Sodium Chloride Flush 5 ML IVFLUSH ×3 (09:24→20:28)
[2022-07-20] MEDS: Nystatin Powder 15 GM BOTTLE 1 APPL TOPICAL ×2 (09:24→22:51)
[2022-07-20] MEDS: Enoxaparin Sodium 40 MG/0.4 ML SYRINGE SUBCUT (09:24)
[2022-07-20] MEDS: 0.9 % Sodium Chloride Flush 3 ML SYRINGE IVFLUSH ×3 (09:25→20:30)
[2022-07-20] MEDS: HYDROmorphone HCl 1 MG/ML SYRINGE IVPUSH ×3 (09:53→20:27)
--- NOTE | 2022-07-20 10:12 | MHC.CLN ---
F/U DISCUSSED AT ROUNDS WITH MD MAGUIRE TUBE TO REMAIN IN PLACE PER VITAL 1.5 TO INCREASE TO 40ML/HR TO PROVIDE 1440KCALS (22KCALS/KG BASED ON CMW), 65G PROTEIN (1.0G/KG BASED ON CMW) DIET RX: PUREED PER CLOTH COLORER RECOMMENDATIONS-APPROPRIATE PT RECEIVING ENSURE PLUS HIGH PROTEIN TID WITH MEALS (PT PREFERS [facility] OR [facility]) STRICT PO INTAKE
--- NOTE | 2022-07-20 11:14 | P.PNCC_ITS ---
Subjective Subjective Date of Service: 07/20/22 <Ofelia Crabtree NP - Last Filed: 07/20/22 11:46> Interval History: Mrs. Hankins was transferred back to the ICU on June 12 from the OR after emergent exploratory laparotomy and subtotal colectomy for C diff colitis with toxic megacolon. The patient is a 62 year old female with history of Crohn's disease who presented to the ED May 18 complaining of abdominal pain.? She?d been treated as an outpatient with prednisone for a presumed Crohn?s flare.? On the morning of presentation, she developed sudden onset of sharp abdom pain.? Initial CT scan suggested severe constipation and a question of partial obstruction with worsening severe colitis of the sigmoid colon and proctitis, with increased wall thickening.? There was no evidence of free air.? She was treated with opiates and Zosyn.? The patient was admitted to Medicine and started on systemic steroids. The patient had no relief and therefore underwent flex sig by Dr. Peralta on May 23 at which he found a large abscess cavity in the sigmoid with some associated ulceration and stool.? Post procedure the patient had significant worsening of her abdominal exam; stat ct showed free air and fluid with a pelvic abscess.? She was taken directly to the OR where a large perforation of the distal sigmoid was found.? There was extensive peritoneal fecal soilage, w marked indurated peritonitis especially in the pelvis.? She underwent lysis of adhesions, and sigmoid resection and colostomy.? The anesthetic course was marked by progressive septic shock.? The abdomen was closed and the patient was brought out intubated to ICU. The patient had an initial brook course in the ICU, with deep shock and marked hypovolemia.? Echo showed normal right and left heart, with hyperdynamic function and small IVC.? The patient was volume resuscitated and continued on Meropenam.? Her renal indices lakshmi, but creat crested at 1.7.? She developed fever and multiple intraabdominal abscesses and had mult drains placed in IR.? She was put on TPN.? She was extubated on 06/07.? Subsequently was put on tube feeds.? She had high residuals and was put on Reglan and erythromycin.? She had some anxiety and mild ICU encephalopathy, along w moderate ICU myopathy.? She was vigorously diuresed with a Lasix drip. On 06/13 she was found to have a cold left foot, with loss of palp pulses and decreased capill refill.? Over the course of 3 hours or so, the foot warmed up and capill refill returned to normal.? We started her on heparin.? Arterial duplex US showed no hemod signif stenosis.? Aortic CTA w runoff showed a short segment of limited contrast opacification of the distal left tibialis anterior just above the ankle, artifactual vs focal stenosis, more likely the former, w subsequent opacification/flow within the dorsalis pedis.? Otherwise, patent runoff bilaterally, w no hemodynamically significant stenosis or arterial cutoff.? We stopped the heparin after 24 hrs. The patient had a persistently elevated white count.? In consultation with ID, antibiotics were discontinued Jun 17.? The patient was discharged from the ICU to the floor on June 18.? She was recovering on the floor.? On June 22, she had an IR guided drainage 500 cc of purulent fluid from a LUQ abscess.? She was given voriconazole. On June 30, a repeat CT showed diffuse mural thickening involving the entire colon consistent with inflammatory/infectious colitis.? She tested po sitive for C diff.? On July 11, she started having worsening abdominal pain with some bloody output in her stoma.? Repeat CT on Jul 12 showed diffuse prominent colitis from the cecum through the colostomy.? She had worsened pain and distention.? On Jul 13 she was taken to the OR for E-lap and was found to have toxic megacolon.? She underwent subtotal colectomy and end ileostomy.? The procedure was extremely difficult and prolonged 2? adhesions, and was complicated by multiple enterotomies which were primarily closed.? She developed progressive septic shock during the procedure, complicated by marked hypovolemia and coagulopathy.? EBL was 2000cc.? She was given multiple units of blood, FFP, and cryo. Postoperatively, she was transferred to the ICU.? Postop echo but Dr. Pinedo still showed hyperdynamic LV function with no significant RV dysfunction.? She was put on linezolid Levaquin and Flagyl.? She was given two more units of blood on Jul 14. The patient was extubated Jul 16 without incident.? Pressors came off and she was started on Lasix bec of massive anasarca.? We put a Kaofeed tube in and started her on trickle tube feeds.? We stopped her Levaquin.? She continues on Flagyl and voriconazole for another 4 days. Upon my exam today, she is fully alert and fully oriented. ?Grossly, she appears markedly smaller than yesterday after diuresing about 6L yesterday. ?On hydromorphone CONTENT DEVELOPMENT MANAGER and Lasix 6mg/hr. ?Afebrile. ?HR 103 on metoprolol 50mg bid. ?BP 128/58. ?RR 21, nonlabored, w Sat 100% on 1L NC. ?CVBG this morn 7.47/47/+9. ?No JVD at 30?. ?Chest shows good excursion, clear to auscultation, normal expiratory phase. ?The abdomen is mildly rotund, not distended. ?The ostomy bag is full of light brown liquid stool w some formed matter in it. ?Dressings are dry. ?Good bowel sounds today. ?The belly is soft, mildly tender, no change. ?Still has gross anasarca, but less than yesterday. ?3-4/5 strength in both UEs. ?Barely any movement in LEs, not antigravity. ?Both feet are warm. U/O is 6200 cc x 24hrs, net negative 3100cc. ?Net balance is positive 18 liters (down 3L from yest). LABORATORY DATA: ?Below. ?Notably, renal indices steady.? Potassium, magnesium, calcium and phosphorous all low. ?Random glucose 137. IMPRESSION: 1. Underlying obesity. 2. Perforated viscus w fecal peritonitis. ?Suspect she perforated the morning of admission when she had sudden onset pain. ?The pathology report showed no evidence of Crohn?s. 3. Post op CDiff colitis with toxic megacolon. ?Required very difficult reexploration and colectomy. ?She had mult enterotomies during the procedure. ?So far, the post op course has been relatively complication free.? Post op tested negative for CDiff. 4. Acute resp failure. ?Resolved.? Still mildly tachypneic, needs further diuresis. 5. Gross anasarca. ?Also undoubtedly has/had signif ascites. ?Still needs major diuresis. ?Doing well w Lasix drip. ?A lot of her wound drainage should dry up. 6. Tachycardia. ?Likely 2? SIRS. ?Continue metoprolol 50 mg bid. 7. ID: ??Continuing on Flagyl and voriconazole for another four days. 8. Hyperglycemia. ?No need for insulin at present. 9. Hypokalemia. ?Repleting. 10. Hypomagnesmia. Repleting 11. Hypophosphatemia. Repleting. 12. Hypocalcemia. Repleting. 13. Neuro/psych. ?Only very mildly confused. ?Getting better by the day. ?? When to restart duloxetine and topiramate. 14. Pain management. Dilaudid CONTENT DEVELOPMENT MANAGER + Nurse admin PRN. 15. Significant ICU myopathy. ?Improving very slowly. ?PT consult and up to chair today. 16. DVT proph. ?Lovenox. 17. Nutrition. ??TPN discontinued. ?Tube feeds up to 40cc/hr. ?Encouraging po diet. . <Ofelia Crabtree NP - Last Filed: 07/20/22 11:46> Mrs. Hankins was transferred back to the ICU on June 12 from the OR after emergent exploratory laparotomy and subtotal colectomy for C diff colitis with toxic megacolon. The patient is a 62 year old female with history of Crohn's disease who presented to the ED May 18 complaining of abdominal pain.? She?d been treated as an outpatient with prednisone for a presumed Crohn?s flare.? On the morning of presentation, she developed sudden onset of sharp abdom pain.? Initial CT scan suggested severe constipation and a question of partial obstruction with worsening severe colitis of the sigmoid colon and proctitis, with increased wall thickening.? There was no evidence of free air.? She was treated with opiates and Zosyn.? The patient was admitted to Medicine and started on systemic steroids. The patient had no relief and therefore underwent flex sig by Dr. Peralta on May 23 at which he found a large abscess cavity in the sigmoid with some associated ulceration and stool.? Post procedure the patient had significant worsening of her abdominal exam; stat ct showed free air and fluid with a pelvic abscess.? She was taken directly to the OR where a large perforation of the distal sigmoid was found.? There was extensive peritoneal fecal soilage, w marked indurated peritonitis especially in the pelvis.? She underwent lysis of adhesions, and sigmoid resection and colostomy.? The anesthetic course was marked by progressive septic shock.? The abdomen was closed and the patient was brought out intubated to ICU. The patient had an initial brook course in the ICU, with deep shock and marked hypovolemia.? Echo showed normal right and left heart, with hyperdynamic function and small IVC.? The patient was volume resuscitated and continued on Meropenam.? Her renal indices lakshmi, but creat crested at 1.7.? She developed fever and multiple intraabdominal abscesses and had mult drains placed in IR.? She was put on TPN.? She was extubated on 06/07.? Subsequently was put on tube feeds.? She had high residuals and was put on Reglan and erythromycin.? She had some anxiety and mild ICU encephalopathy, along w moderate ICU myopathy.? She was vigorously diuresed with a Lasix drip. On 06/13 she was found to have a cold left foot, with loss of palp pulses and decreased capill refill.? Over the course of 3 hours or so, the foot warmed up and capill refill returned to normal.? We started her on heparin.? Arterial duplex US showed no hemod signif stenosis.? Aortic CTA w runoff showed a short segment of limited contrast opacification of the distal left tibialis anterior just above the ankle, artifactual vs focal stenosis, more likely the former, w subsequent opacification/flow within the dorsalis pedis.? Otherwise, patent runoff bilaterally, w no hemodynamically significant stenosis or arterial cutoff.? We stopped the heparin after 24 hrs. The patient had a persistently elevated white count.? In consultation with ID, antibiotics were discontinued Jun 17.? The patient was discharged from the ICU to the floor on June 18.? She was recovering on the floor.? On June 22, she had an IR guided drainage 500 cc of purulent fluid from a LUQ abscess.? She was given voriconazole. On June 30, a repeat CT showed diffuse mural thickening involving the entire colon consistent with inflammatory/infectious colitis.? She tested positive for C diff.? On July 11, she started having worsening abdominal pain with some bloody output in her stoma.? Repeat CT on Jul 12 showed diffuse prominent colitis from the cecum through the colostomy.? She had worsened pain and distention.? On Jul 13 she was taken to the OR for E-lap and was found to have toxic megacolon.? She underwent subtotal colectomy and end ileostomy.? The procedure was extremely difficult and prolonged 2? adhesions, and was complicated by multiple enterotomies which were primarily closed.? She developed progressive septic shock during the procedure, complicated by marked hypovolemia and coagulopathy.? EBL was 2000cc.? She was given multiple units of blood, FFP, and cryo. Postoperatively, she was transferred to the ICU.? Postop echo but Dr. Pinedo still showed hyperdynamic LV function with no significant RV dysfunction.? She was put on linezolid Levaquin and Flagyl.? She was given two more units of blood on Jul 14. The patient was extubated Jul 16 without incident.? Pressors came off and she was started on Lasix bec of massive anasarca.? We put a Kaofeed tube in and started her on trickle tube feeds.? We stopped her Levaquin.? She continues on Flagyl and voriconazole for another 4 days. Upon my exam today, she is fully alert and fully oriented. ?Grossly, she appears markedly smaller than yesterday after diuresing about 6L yesterday. ?On hydromorphone CONTENT DEVELOPMENT MANAGER and Lasix 6mg/hr. ?Afebrile. ?HR 103 on metoprolol 50mg bid. ?BP 128/58. ?RR 21, nonlabored, w Sat 100% on 1L NC. ?CVBG this morn 7.47/47/+9. ?No JVD at 30?. ?Chest shows good excursion, clear to auscultation, normal expiratory phase. ?The abdomen is mildly rotund, not distended. ?The ostomy bag is full of light brown liquid stool w some formed matter in it. ?Dressings are dry. ?Good bowel sounds today. ?The belly is soft, mildly tender, no change. ?Still has gross anasarca, but less than yesterday. ?3-4/5 strength in both UEs. ?Barely any movement in LEs, not antigravity. ?Both feet are warm. U/O is 6200 cc x 24hrs, net negative 3100cc. ?Net balance is positive 18 liters (down 3L from yest). LABORATORY DATA: ?Below. ?Notably, renal indices steady.? Potassium, magnesium, calcium and phosphorous all low. ?Random glucose 137. IMPRESSION: 1. Underlying obesity. 2. Perforated viscus w fecal peritonitis. ?Suspect she perforated the morning of admission when she had sudden onset pain. ?The pathology report showed no evidence of Crohn?s. 3. Post op CDiff colitis with toxic megacolon. ?Required very difficult reexploration and colectomy. ?She had mult enterotomies during the procedure. ?So far, the post op course has been relatively complication free.? Post op tested negative for CDiff. 4. Acute resp failure. ?Resolved.? Still mildly tachypneic, needs further diuresis. 5. Gross anasarca. ?Also undoubtedly has/had signif ascites. ?Still needs major diuresis. ?Doing well w Lasix drip. ?A lot of her wound drainage should dry up. 6. Tachycardia. ?Likely 2? SIRS. ?Continue metoprolol 50 mg bid. 7. ID: ??Continuing on Flagyl and voriconazole for another four days. 8. Hyperglycemia. ?No need for insulin at present. 9. Hypokalemia. ?Repleting. 10. Hypomagnesmia. Repleting 11. Hypophosphatemia. Repleting. 12. Hypocalcemia. Repleting. 13. Neuro/psych. ?Only very mildly confused. ?Getting better by the day. ?? When to restart duloxetine and topiramate. 14. Pain management. Dilaudid CONTENT DEVELOPMENT MANAGER + Nurse admin PRN. 15. Significant ICU myopathy. ?Improving very slowly. ?PT consult and up to chair today. 16. DVT proph. ?Lovenox. 17. Nutrition. ??TPN discontinued. ?Tube feeds up to 40cc/hr. ?Encouraging po diet. The patient is stable for transfer to [facility] [place]. Will sign out to the hospitalists.. <Vu Wilkerson MD - Last Filed: 07/20/22 15:45> Critical Care Time (minutes): 0 <Ofelia Crabtree NP - Last Filed: 07/20/22 11:46> Physical Exam Vital Signs: Vital Signs: Last Vital Signs Temp 98.4 F 07/20/22 08:00 Pulse 98 07/20/22 11:00 Resp 21 H 07/20/22 11:00 BP 123/65 11/10/22 11:00 Pulse Ox 98 07/20/22 11:00 O2 Del Method 07/20/22 11:00 O2 Flow Rate 2 07/20/22 11:00 FiO2 30 07/17/22 10:00 Oxygen Flow Rate 35 06/13/22 21:00 BMI result Body Mass Index 34.9 <Ofelia Crabtree NP - Last Filed: 07/20/22 11:46> Objective Data Labs CBC & Chem 7: : 07/19/22 17:22 07/20/22 05:11 <Ofelia Crabtree NP - Last Filed: 07/20/22 11:46> Labs: Laboratory Results - last 24 hr 07/19/22 07/19/22 07/20/22 17:22 17:22 05:10 WBC 6.6 RBC 2.80 L Hgb 8.3 L Hct 26.0 L MCV 92.9 MCH 29.6 MCHC 31.9 RDW 17.0 H Plt Count 270 MPV 9.9 Absolute Nucleated RBC 0.000 Nucleated RBC % (auto) 0.0 VBG pH 7.47 H VBG pCO2 47 VBG pO2 45 VBG HCO3 34 H VBG O2 Saturation 75.0 VBG Base Excess 9.7 Sodium Potassium Chloride Carbon Dioxide Anion Gap BUN Creatinine Estim Creat Clear Calc Estimated GFR Random Glucose Lactic Acid 1.3 Calcium Phosphorus Magnesium Procalcitonin 07/20/22 07/20/22 05:11 05:11 WBC RBC Hgb Hct MCV MCH MCHC RDW Plt Count MPV Absolute Nucleated RBC Nucleated RBC % (auto) VBG pH VBG pCO2 VBG pO2 VBG HCO3 VBG O2 Saturation VBG Base Excess Sodium 140 Potassium 2.9 L D Chloride 97 Carbon Dioxide 31 H Anion Gap 15 BUN 10 Creatinine 0.44 L Estim Creat Clear Calc 147.1 Estimated GFR > 60 Random Glucose 137 H Lactic Acid Calcium 7.9 L Phosphorus 2.7 Magnesium 1.8 Procalcitonin 0.32 <Ofelia Crabtree NP - Last Filed: 07/20/22 11:46> Microbiology Microbiology Results: Microbiology 07/16/22 18:40 Blood - Venous Blood Culture - Preliminary No growth after 48 hours. 07/16/22 18:40 Blood - Venous Blood Culture - Preliminary No growth after 48 hours. 07/13/22 16:31 Abscess Rectal Gram Stain - Final 07/13/22 16:31 Abscess Rectal Routine Culture - Final 06/02/22 Unknown Abscess Intra-abdominal Fungal Identification - Final Verónica dubliniensis 06/22/22 16:30 Abdominal Fluid Gram Stain - Final 06/22/22 16:30 Abdominal Fluid Routine Culture - Final Verónica albicans 06/22/22 16:30 Abdominal Fluid Anaerobic Culture - Final NO GROWTH AFTER 5 DAYS 06/30/22 07:05 Blood - Venous Blood Culture - Final Corynebacterium species 07/01/22 16:44 Blood - Venous Blood Culture - Final No growth after 5 days. 07/01/22 16:45 Blood - Venous Blood Culture - Final No growth after 5 days. 06/30/22 07:05 Blood - Venous Blood Culture - Final No growth after 5 days. 06/27/22 01:16 Blood - Venous Blood Culture - Final No growth after 5 days. 06/27/22 01:16 Blood - Venous Blood Culture - Final No growth after 5 days. 06/24/22 06:14 Blood - Venous Blood Culture - Final No growth after 5 days. 06/24/22 06:14 Blood - Venous Blood Culture - Final No growth after 5 days. 06/03/22 15:28 Blood - Subclavian Blood Culture - Final No growth after 5 days. 06/03/22 06:15 Blood - Venous Blood Culture - Final No growth after 5 days. 06/03/22 06:15 Blood - Venous Blood Culture - Final No growth after 5 days. 06/02/22 Unknown Peritoneal Fluid Gram Stain - Final 06/02/22 Unknown Peritoneal Fluid Routine Culture - Final Verónica albicans 06/02/22 Unknown Peritoneal Fluid Anaerobic Culture - Final 05/29/22 15:14 Blood - Venous Blood Culture - Final No growth after 5 days. 05/29/22 15:13 Blood - Venous Blood Culture - Final No growth after 5 days. 05/29/22 05:14 Blood - Venous Blood Culture - Final No growth after 5 days. 05/29/22 05:14 Blood - Venous Blood Culture - Final No growth after 5 days. 06/02/22 Unknown Abscess Intra-abdominal Gram Stain - Final 06/02/22 Unknown Abscess Intra-abdominal Routine Culture - Final 06/02/22 Unknown Abscess Intra-abdominal Anaerobic Culture - Final 06/02/22 Unknown Abscess Intra-abdominal Gram Stain - Final 06/02/22 Unknown Abscess Intra-abdominal Routine Culture - Final 05/28/22 Unknown Peritoneal Fluid Gram Stain - Final 05/28/22 Unknown Peritoneal Fluid Anaerobic Culture - Final 05/28/22 Unknown Peritoneal Fluid Body Fluid Culture - Final Verónica dubliniensis 05/29/22 15:05 Sputum - Suctioned Gram Stain - Final 05/29/22 15:05 Sputum - Suctioned Sputum Culture - Final Verónica dubliniensis 05/28/22 16:47 Sputum - Suctioned Gram Stain - Final 05/28/22 16:47 Sputum - Suctioned Sputum Culture - Final Verónica albicans 05/23/22 Unknown Peritoneal Fluid Gram Stain - Final 05/23/22 Unknown Peritoneal Fluid Routine Culture - Final Escherichia coli 05/23/22 Unknown Peritoneal Fluid Anaerobic Culture - Final Clostridium perfringens Bacteroides thetaiotaomicron 05/19/22 08:49 Blood - Venous Blood Culture - Final No growth after 5 days. 05/19/22 08:49 Blood - Venous Blood Culture - Final No growth after 5 days. <Ofelia Crabtree NP - Last Filed: 07/20/22 11:46> Quality Stroke Does the patient have a stroke diagnosis?: No <Ofelia Crabtree NP - Last Filed: 07/20/22 11:46> VTE Prior VTE?: No <Ofelia Crabtree NP - Last Filed: 07/20/22 11:46> VTE Risk Level:: Medical - moderate - high <Ofelia Crabtree NP - Last Filed: 07/20/22 11:46> VTE Device Contraindication: N/A - Device Ordered <Ofelia Crabtree NP - Last Filed: 07/20/22 11:46> VTE Drug Contraindication: N/A - Med Ordered <Ofelia Crabtree NP - Last Filed: 07/20/22 11:46>
[2022-07-20] MEDS: Sodium,Potassium Phosphates POWD.PACK 2 PACKET G-TUBE ×3 (12:53→22:55)
[2022-07-20] MEDS: Calcium Gluconate/NaCl,Iso-Osm 2 GM/100 ML PLAST..BAG IV (12:53)
[2022-07-20] MEDS: Potassium Chloride Packet 20 MEQ PACKET 40 MEQ G-TUBE ×2 (12:53→17:19)
[2022-07-20] MEDS: Magnesium Sulfate/H2O 2 GM/50 ML PIGGYBACK IV ×2 (12:54→22:50)
[2022-07-20] MEDS: HYDROmorphone HCl/NS 10 MG/50 ML PIGGYBACK 2.5 MG IV (14:34)
--- NOTE | 2022-07-20 16:18 | MHC.CM.PN ---
Pt remains in ICU following emergent surgery for toxic megacolon. Extubated, tolerating small po intake. D/C plans for STR placement. CM to follow
--- NOTE | 2022-07-20 16:47 | MHC.SL.SWA ---
Speech Pathologist Impression: Risk of Aspiration Due to: Hx of Recent Extubation Dysphasia Diet Status: PUREE (NDD1) with THIN liquids, pills crushed in puree. As diet is tolerated, patient will be re-assessed for advancement of consistencies. Pt is currently able to tolerate only small amounts of PO at meals. Liquid Consistency and Strategies for Safe Swallow: Liquid Intake Recommendation: Thin Liquid Intake Strategies: Small Sips Solid Food Consistency: Dietary Recommendations: Pureed (NDD1) Additional Modifications to Solid Foods: Pt requires 1-1 feed due to upper extremity weakness from deconditioning, although marginal improvement noted today, with patient able to lift cup and sip from straw. Oral Medication Intake: Crushed with Puree Please contact the pharmacy regarding appropriate crushable or liquid drug formulations that are available whenever modified delivery is recommended. Compensatory Strategies and Precautions to be Taken for Safe Swallow: Sitting Upright (90 deg) Liquids from Cup Liquids from Straw Small Bites and Sips Alternate Liquids/Solids Supervision While Eating and Drinking for Safe Swallow: Total Assistance (1:1) Foods to Avoid: Sticky or congealed purees. Swallowing Recommended Treatments: Compens. Strategy Educat. Recommendation for Speech: Inpatient Speech Therapy Comment: Pt was awake and alert, had brother and member of [facility] staff in room visiting. Patient reported that she had started receiving meals, had a lunch tray, ate a small amount of food and drank the ice tea that came with her meal. Patient was not comfortable with doing any po trials today, as she felt she had just eaten and was full from lunch. Patient stated that she was thirsty, accepted trying some juice. Bed was repositioned to level of her comfort, about 70 Degrees today. Pt took straw sips, was notably able to lift cup and get straw in mouth independently today. However, pt. benefited from steadying the straw to sip from it. Pt. took several sips of the juice, produced a timely swallow, no clinical signs of aspiration. However it was noted after several sips of juice, O2 Sats dropped into the 80s. When pt was cued to take some breaths, Sats fully rebounded. Patient noted to burp, she reported that she burps now whenever eating or drinking. Pt then stated that the juice was too sweet and wanted no more. Frequency/Duration: M-F while inpatient. Date Range for Service Req: Timeline to reassess: Nut Threader Clinican/Clinical Fellow: No Supervisory Statement: I have reviewed and agree with the student/clinical fellow's documentation: N/A Speech Language Pathologist: Evette Talbert M.A., [facility]
[2022-07-20] MEDS: Metoprolol Tartrate 25 MG TABLET 75 MG G-TUBE (17:19)
[2022-07-20] MEDS: Furosemide 40 MG/4 ML VIAL IVPUSH (17:20)
--- NOTE | 2022-07-20 19:07 | PC.NURSE ---
Report given by prior nurse. Shift assessment completed noted patient A&O x4, prior surgical abdominal incision, drain to left midaxillary, odell patent and draining, see complete shift assessment. Colostomy emptied for 500mL. Patient repositioned Q2hr, patient and family updated on health status. Report given to Nurse on IMC, patient brought up by RN, Aid, and Transport to room with all belongings where patient was secured in bed with call arteaga in reach.
[2022-07-21] VITALS (8 sets, daily range): BP systolic 108–127; BP diastolic 56–72; PULSE 19–110; RESP 14–20; TEMP 35.8–36.8; O2SAT 94–97; BMI 32.1
[2022-07-21] MEDS: HYDROmorphone HCl/NS 10 MG/50 ML PIGGYBACK 2.5 MG IV ×4 (00:22→22:35)
--- NOTE | 2022-07-21 00:34 | PC.NURSE ---
SUPERVISOR CELL ROOM pump. New dilaudid bag hung. 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
[2022-07-21] MEDS: metroNIDAZOLE/NS 500 MG/100 ML PIGGYBACK 100 MG IV ×4 (00:50→20:59)
[2022-07-21] MEDS: Potassium Chloride Packet 20 MEQ PACKET 40 MEQ G-TUBE (00:51)
[2022-07-21] MEDS: Metoprolol Tartrate 25 MG TABLET 75 MG G-TUBE ×3 (01:49→17:52)
--- NOTE | 2022-07-21 07:42 | PM.PNGS ---
Subjective Subjective Date of Service: 07/22/22 Interval history: says she wants to eat hungry transferred to [facility] from ICU last night stoma functioning well Physical Exam Vital Signs: Vital Signs: Last Vital Signs Temp 97.0 F 07/21/22 06:55 Pulse 103 H 07/21/22 06:55 Resp 20 07/21/22 06:55 BP 116/56 L 07/21/22 06:55 Pulse Ox 96 07/21/22 06:55 O2 Del Method 07/21/22 06:55 O2 Flow Rate 1 07/21/22 06:55 FiO2 30 07/17/22 10:00 Oxygen Flow Rate 35 06/13/22 21:00 BMI result Body Mass Index 32.1 Const: Other: short of breath as baseline Resp: Other: short of breath as baseline Cardio: Rate: tachycardic GI: Other: soft, stoma with good output, drainage from lower part of incision Objective Data Active Medications Heparin Sodium (Porcine) 50 (units/ Sodium Chloride 5 ml) 0 units IVFLUSH TID [facility] Last Admin: 07/20/22 20:28 Dose: 50 unit Documented By: FRANTZ Enoxaparin Sodium (Enoxaparin Sodium 40 Mg/0.4 Ml Syringe) 40 mg SUBCUT Q24H [facility] Last Admin: 07/20/22 09:24 Dose: 40 mg Documented By: BROOKS Furosemide (Furosemide 40 Mg/4 Ml Vial) 40 mg IVPUSH BID@0900,1800 [facility]; Protocol Last Admin: 07/20/22 17:20 Dose: 40 mg Documented By: LAURAEAFarshad Hydromorphone HCl (Hydromorphone Hcl 1 Mg/Ml Syringe) 1 mg IVPUSH Q1H PRN; Protocol PRN Reason: Pain, Moderate (Pain Scale 4-6 Last Admin: 07/20/22 20:27 Dose: 1 mg Documented By: FRANTZ Metronidazole (Flagyl) 500 mg in 100 mls @ 100 mls/hr IV Q8H [facility] Stop: 07/23/22 00:00 Last Admin: 07/21/22 06:12 Dose: 100 mls/hr Documented By: FRANTZ Voriconazole 200 mg/ Sodium (Chloride) 100 mls @ 50 mls/hr IV Q12H [facility] Stop: 07/23/22 00:00 Last Infusion: 07/20/22 22:57 Dose: 0 mls/hr Documented By: FRANTZ Hydromorphone HCl (Dilaudid) 10 mg in 50 mls @ 0 mls/hr IV .Q0M [facility]; Protocol Last Admin: 07/21/22 00:22 Dose: 0.5 mg/hr, 2.5 mls/hr Documented By: FRANTZ Metoprolol Tartrate (Metoprolol Tartrate 25 Mg Tablet) 75 mg G-TUBE Q8H [facility]; Protocol Last Admin: 07/21/22 01:49 Dose: 75 mg Documented By: FRANTZ Patient Own Med ( (Ajovy 1.5 Ml)) 1.5 ml SUBCUT Q30D [facility] Last Admin: 06/30/22 13:56 Dose: 1.5 ml Documented By: LAKESHIA Nystatin (Nystatin Powder 15 Gm Bottle) 1 appl TOPICAL BID [facility]; Protocol Last Admin: 07/20/22 22:51 Dose: 1 appl Documented By: FRANTZ Pharmacy Consult (Consult Rx Perform Med Rec) 1 each MISCELLANE ONCE PRN PRN Reason: Consult order Sodium Chloride (0.9 % Sodium Chloride Flush 3 Ml Syringe) 3 ml IVFLUSH QSHIFT [facility] Last Admin: 07/20/22 20:30 Dose: 3 ml Documented By: FRANTZ Sumatriptan Succinate (Sumatriptan Succinate 6 Mg/0.5 Ml Vial) 6 mg SUBCUT DAILY PRN PRN Reason: migraine headache Last Admin: 07/11/22 16:21 Dose: 6 mg Documented By: SANTOS Labs CBC & Chem 7: 07/19/22 17:22 07/22/22 06:11 Procedures Date of Service Date of Service: 07/21/22 Arterial Line Size (Gauge): 16 Progress Note: A&P Assessment and plan (1) S/P colectomy: Status: Acute Assessment and Plan: okay to DC NG tube start regular diet may need supplemental IV fluids because of high output from stoma pain management wound care doing well overall Time Spent With Patient Time: Total time spent is greater than 50% in coordination of care (as documented) at patient's floor/unit and/or counseling patient: Quality Stroke Does the patient have a stroke diagnosis?: No VTE Prior VTE?: No VTE Risk Level:: Medical - moderate - high VTE Device Contraindication: N/A - Device Ordered VTE Drug Contraindication: N/A - Med Ordered
--- NOTE | 2022-07-21 07:53 | HO.PM.IMPN ---
Subjective Subjective Date of Service: 07/21/22 Interval History: [place] [facility] [place] this morning patient is awake alert feeling better NG tube pulled out this morning by General surgery, patient denies nausea vomiting, less abdominal pain no overnight events, no fevers no chills, no headache no dizziness no other acute issues vital stable. 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 Awake alert no distress Neck: supple, no JVD Lungs: clear to auscultation bilaterally Heart: regular, tachycardic, no murmurs Abd: soft, stoma with liquidy stool , non-tender, dressing to mid abdomen, no drainage, bowel sounds audible, left sided drains with small drainage Ext:? Edema significantly improved from before, persistent swelling dorsum of feet Skin: warm/well-perfused Neuro: alert and oriented x3, no focal findings Psych: appropriate affect Marie catheter in place Objective Data Active Medications Heparin Sodium (Porcine) 50 (units/ Sodium Chloride 5 ml) 0 units IVFLUSH TID [facility] Last Admin: 07/20/22 20:28 Dose: 50 unit Documented By: FRANTZ Enoxaparin Sodium (Enoxaparin Sodium 40 Mg/0.4 Ml Syringe) 40 mg SUBCUT Q24H [facility] Last Admin: 07/20/22 09:24 Dose: 40 mg Documented By: BROOKS Furosemide (Furosemide 40 Mg/4 Ml Vial) 40 mg IVPUSH BID@0900,1800 [facility]; Protocol Last Admin: 07/20/22 17:20 Dose: 40 mg Documented By: DONTRELL Hydromorphone HCl (Hydromorphone Hcl 1 Mg/Ml Syringe) 1 mg IVPUSH Q1H PRN; Protocol PRN Reason: Pain, Moderate (Pain Scale 4-6 Last Admin: 07/20/22 20:27 Dose: 1 mg Documented By: FRANTZ Metronidazole (Flagyl) 500 mg in 100 mls @ 100 mls/hr IV Q8H [facility] Stop: 07/23/22 00:00 Last Admin: 07/21/22 06:12 Dose: 100 mls/hr Documented By: FRANTZ Voriconazole 200 mg/ Sodium (Chloride) 100 mls @ 50 mls/hr IV Q12H [facility] Stop: 07/23/22 00:00 Last Infusion: 07/20/22 22:57 Dose: 0 mls/hr Documented By: FRANTZ Hydromorphone HCl (Dilaudid) 10 mg in 50 mls @ 0 mls/hr IV .Q0M [facility]; Protocol Last Admin: 07/21/22 00:22 Dose: 0.5 mg/hr, 2.5 mls/hr Documented By: FRANTZ Metoprolol Tartrate (Metoprolol Tartrate 25 Mg Tablet) 75 mg G-TUBE Q8H [facility]; Protocol Last Admin: 07/21/22 01:49 Dose: 75 mg Documented By: FRANTZ Patient Own Med ( (Ajovy 1.5 Ml)) 1.5 ml SUBCUT Q30D [facility] Last Admin: 06/30/22 13:56 Dose: 1.5 ml Documented By: LAKESHIA Nystatin (Nystatin Powder 15 Gm Bottle) 1 appl TOPICAL BID [facility]; Protocol Last Admin: 07/20/22 22:51 Dose: 1 appl Documented By: FRANTZ Pharmacy Consult (Consult Rx Perform Med Rec) 1 each MISCELLANE ONCE PRN PRN Reason: Consult order Sodium Chloride (0.9 % Sodium Chloride Flush 3 Ml Syringe) 3 ml IVFLUSH QSHIFT [facility] Last Admin: 07/20/22 20:30 Dose: 3 ml Documented By: FRANTZ Sumatriptan Succinate (Sumatriptan Succinate 6 Mg/0.5 Ml Vial) 6 mg SUBCUT DAILY PRN PRN Reason: migraine headache Last Admin: 07/11/22 16:21 Dose: 6 mg Documented By: SANTOS Labs CBC & Chem 7: 07/19/22 17:22 07/20/22 05:11 Assessment and Plan (1) S/P colectomy: Status: Acute Plan On Jul 13 pt taken to the OR for E-lap and 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 The procedure was extremely difficult and prolonged 2? adhesions, and was complicated by multiple enterotomies which were primarily closed.? She developed progressive septic shock during the procedure, complicated by marked hypovolemia and coagulopathy.? EBL was 2000cc.? She was given multiple units of blood, FFP, and cryo. Postoperatively, she was transferred to the ICU.? Postop echo but Dr. Pinedo still showed hyperdynamic LV function with no significant RV dysfunction.? She was put on linezolid Levaquin and Flagyl.? She was given two more units of blood on Jul 14. patient was extubated Jul 16 without incident.? Pressors came off and she was started on Lasix because of massive anasarca, Kaofeed tube started due to poor po intake ,pt remains on Flagyl and voriconazole,levaquin stopped, patient subsequently transferred to intermediate care unit on 07/20. Toxic megacolon underwent difficult re-exploration and colectomy 07/13, stoma functioning well with liquidy stools, NG tube discontinued continue chopped advanced diet and thin liquids being followed by speech therapist, continue supplements. 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 will transition to by mouth Lasix 40 mg daily, to avoid dehydration since has significant stoma output Hypokalemia likely due to Lasix will replete and follow BMP closely. Tachycardia ongoing persistent likely due to ongoing SIRS, continue metoprolol 75 mg t.i.d. follow BP and pulse closely continue tele monitor, BP stable ICU myopathy continue PT out of bed to chair as tolerated C diff colitis on iv flagyl last dose 07/23 Status post septic shock secondary to perforated viscus with fecal peritonitis and fungal peritonitis Continue voriconazole last dose 07/23 Resolved issues SABINE resolved Toxic metabolic encephalopathy resolved Hypophosphatemia/hypomagnesemia resolved Left upper extremity catheter associated DVT proximal left brachial vein diagnosed on 06/27, midline catheter was removed patient treated with Lovenox subQ b.i.d. subsequently discontinued DVT prophylaxis with Lovenox Patient requires continued inpatient hospitalization due to being on IV Dilaudid pump for pain control, will gradually wean dilaudid and also on IV Lasix with electrolyte abnormality and poor by mouth intake need close electrolyte monitoring Quality Stroke Does the patient have a stroke diagnosis?: No VTE Prior VTE?: No VTE Risk Level:: Medical - moderate - high VTE Device Contraindication: N/A - Device Ordered VTE Drug Contraindication: N/A - Med Ordered
[2022-07-21] MEDS: Potassium Chloride/H20 10 MEQ/100 ML PIGGYBACK 100 MEQ IV ×4 (08:44→12:44)
[2022-07-21] MEDS: Furosemide 40 MG/4 ML VIAL IVPUSH (08:50)
[2022-07-21] MEDS: Enoxaparin Sodium 40 MG/0.4 ML SYRINGE SUBCUT (08:51)
[2022-07-21] MEDS: Voriconazole 200 MG in 0.9 % Sodium Chloride 100 ML 50 MG IV ×2 (08:52→19:50)
[2022-07-21] MEDS: Heparin Sodium,Porcine Flush 50 UNITS, 0.9 % Sodium Chloride Flush 5 ML IVFLUSH ×3 (08:52→19:39)
[2022-07-21] MEDS: Nystatin Powder 15 GM BOTTLE 1 APPL TOPICAL ×2 (08:53→19:40)
[2022-07-21] MEDS: 0.9 % Sodium Chloride Flush 3 ML SYRINGE IVFLUSH ×3 (08:53→19:40)
--- NOTE | 2022-07-21 10:58 | MHC.CLN ---
F/U TUBE FEEDING DISCONTINUED TODAY. DIET=PUREE. SUPPLEMENT ENSURE PLUS HIGH PROTEIN TID PROVIDES ADDITIONAL 1050 KCALS, 60 G PROTEIN. LIKES/ACCEPTS SUPPLEMENT. DISLIKES ENSURE CLEAR, DO NOT SEND. TAKING SMALL AMOUNTS PO. MONITOR PO INTAKE CLOSELY. FOLLOW FOR INTAKE AND DIET ADVANCEMENT.
[2022-07-21] MEDS: HYDROmorphone HCl 1 MG/ML SYRINGE IVPUSH (15:24)
--- NOTE | 2022-07-21 16:13 | PC.NURSE ---
Hydromorphone waste witness at the [facility] . According to the SANDFILL OPERATOR SURFACE pump, pt received 19 boluses that = 47.5 ml, Waste : 2.5 ml
[2022-07-21] MEDS: Potassium Chloride Packet 20 MEQ PACKET PO (17:52)
--- NOTE | 2022-07-21 19:17 | PC.NURSE ---
Alert and oriented. Pain well control with MERCHANDISE FLOW ASSOCIATE dilaudid. VSS, afebrile, no acute resp. distress noted. Potassium replaced as ordered. Continue on IV antifungal, no adverse reactions noted. NG tube removed per Dr. Carrera, tolerated it well. Starts on clear liquid diet, advanced to chopped diet. Abdominal dressing changed, no foul odor noted. Ostomy care provided, put out 1000ml of yellow liquid stool. Will continue to monitor and treat per plan of care.
--- NOTE | 2022-07-21 22:43 | PC.NURSE ---
Pt on Dliaudud STENCILING MACHINE TENDER pump. Bag changed at 2240. Pt had recieved 19 boluses equalling 47.5ml of 50ml bag. 2.5 ml wasted at pyxis with 2nd RN.
[2022-07-22] VITALS (16 sets, daily range): BP systolic 109–139; BP diastolic 56–78; PULSE 88–107; RESP 17–24; TEMP 36.3–37.1; O2SAT 95–99; BMI 30.7
[2022-07-22] MEDS: Metoprolol Tartrate 25 MG TABLET 75 MG G-TUBE ×3 (02:12→18:06)
[2022-07-22] MEDS: metroNIDAZOLE/NS 500 MG/100 ML PIGGYBACK 100 MG IV ×3 (05:33→20:27)
[2022-07-22 07:25] LABS: Blood Urea Nitrogen 11 mg/dL (9-16); Creatinine Clr Calc Pharmacy 136.4; Estimated Glomerular Filt Rate > 60; Glucose Random 127 mg/dL (60-115)
[2022-07-22 07:38] LABS: Anion Gap 19 (12-20); Carbon Dioxide 24 mmol/L (22-29); Chloride 97 mmol/L (96-108); Potassium 4.3 mmol/L (3.3-5.1); Sodium 136 mmol/L (135-145)
--- NOTE | 2022-07-22 08:42 | PM.PNGS ---
Subjective Subjective Date of Service: 07/23/22 Interval history: says she is okay still using DOCUMENTATION ENGINEER pump pain management but says she does not use this much anymore states that she has been eating better stoma functioning well Physical Exam Vital Signs: Vital Signs: Last Vital Signs Temp 97.7 F 07/22/22 08:00 Pulse 102 H 07/22/22 08:00 Resp 20 07/22/22 08:00 BP 127/58 L 07/22/22 08:00 Pulse Ox 96 07/22/22 08:00 O2 Del Method 07/22/22 08:00 O2 Flow Rate 1 07/21/22 19:39 FiO2 98 07/21/22 19:39 Oxygen Flow Rate 35 06/13/22 21:00 BMI result Body Mass Index 30.7 Const: Other: short of breath as per baseline Resp: Other: some shortness of breath as basin Cardio: Rate: tachycardic GI: Other: stoma with good output, incision with some drainage Palpation (GI): Soft to palpation and not firm Objective Data Active Medications Heparin Sodium (Porcine) 50 (units/ Sodium Chloride 5 ml) 0 units IVFLUSH TID [facility] Last Admin: 07/21/22 19:39 Dose: 50 unit Documented By: MISSY Enoxaparin Sodium (Enoxaparin Sodium 40 Mg/0.4 Ml Syringe) 40 mg SUBCUT Q24H [facility] Last Admin: 07/21/22 08:51 Dose: 40 mg Documented By: ASHLEY Furosemide (Furosemide 40 Mg Tablet) 40 mg PO DAILY [facility]; Protocol Metronidazole (Flagyl) 500 mg in 100 mls @ 100 mls/hr IV Q8H [facility] Stop: 07/23/22 00:00 Last Infusion: 07/22/22 06:38 Dose: 0 mls/hr Documented By: MISSY Voriconazole 200 mg/ Sodium (Chloride) 100 mls @ 50 mls/hr IV Q12H [facility] Stop: 07/23/22 00:00 Last Infusion: 07/21/22 22:14 Dose: 0 mls/hr Documented By: MISSY Hydromorphone HCl (Dilaudid) 10 mg in 50 mls @ 0 mls/hr IV .Q0M [facility]; Protocol Last Admin: 07/21/22 22:35 Dose: 0.5 mg/hr, 2.5 mls/hr Documented By: MISSY Metoprolol Tartrate (Metoprolol Tartrate 25 Mg Tablet) 75 mg G-TUBE Q8H [facility]; Protocol Last Admin: 07/22/22 02:12 Dose: 75 mg Documented By: MISSY Patient Own Med ( (Ajovy 1.5 Ml)) 1.5 ml SUBCUT Q30D [facility] Last Admin: 06/30/22 13:56 Dose: 1.5 ml Documented By: LAKESHIA Nystatin (Nystatin Powder 15 Gm Bottle) 1 appl TOPICAL BID [facility]; Protocol Last Admin: 07/21/22 19:40 Dose: 1 appl Documented By: MISSY Pharmacy Consult (Consult Rx Perform Med Rec) 1 each MISCELLANE ONCE PRN PRN Reason: Consult order Potassium Chloride (Potassium Chloride Packet 20 Meq Packet) 20 meq PO DAILY [facility] Last Admin: 07/21/22 17:52 Dose: 20 meq Documented By: ASHLEY Sodium Chloride (0.9 % Sodium Chloride Flush 3 Ml Syringe) 3 ml IVFLUSH QSHIFT [facility] Last Admin: 07/21/22 19:40 Dose: 3 ml Documented By: MISSY Sumatriptan Succinate (Sumatriptan Succinate 6 Mg/0.5 Ml Vial) 6 mg SUBCUT DAILY PRN PRN Reason: migraine headache Last Admin: 07/11/22 16:21 Dose: 6 mg Documented By: SANTOS Labs CBC & Chem 7: 07/19/22 17:22 07/22/22 06:11 Labs: Laboratory Results - last 24 hr 07/22/22 06:11 Anion Gap 19 Estim Creat Clear Calc 136.4 Estimated GFR > 60 Random Glucose 127 H Calcium 8.0 L Microbiology Microbiology Results: Microbiology 07/16/22 18:40 Blood Culture - Final Blood - Venous No growth after 5 days. 07/16/22 18:40 Blood Culture - Final Blood - Venous No growth after 5 days. Procedures Date of Service Date of Service: 07/22/22 Arterial Line Size (Gauge): 16 Progress Note: A&P Assessment and plan (1) S/P colectomy: Status: Acute Assessment and Plan: slowly improving oral intake seems better stoma functioning well may need IV fluids periodically if stoma output is high to keep up with fluid losses abdomen remained soft Time Spent With Patient Time: Total time spent is greater than 50% in coordination of care (as documented) at patient's floor/unit and/or counseling patient: Quality Stroke Does the patient have a stroke diagnosis?: No VTE Prior VTE?: No VTE Risk Level:: Medical - moderate - high VTE Device Contraindication: N/A - Device Ordered VTE Drug Contraindication: N/A - Med Ordered
[2022-07-22] MEDS: HYDROmorphone HCl/NS 10 MG/50 ML PIGGYBACK 2.5 MG IV ×3 (08:46→23:55)
[2022-07-22] MEDS: Heparin Sodium,Porcine Flush 50 UNITS, 0.9 % Sodium Chloride Flush 5 ML IVFLUSH ×3 (08:52→20:26)
[2022-07-22] MEDS: Enoxaparin Sodium 40 MG/0.4 ML SYRINGE SUBCUT (08:52)
[2022-07-22] MEDS: Potassium Chloride Packet 20 MEQ PACKET PO (08:52)
[2022-07-22] MEDS: Furosemide 40 MG TABLET PO (08:53)
[2022-07-22] MEDS: Voriconazole 200 MG in 0.9 % Sodium Chloride 100 ML 50 MG IV ×2 (09:48→20:26)
[2022-07-22] MEDS: 0.9 % Sodium Chloride Flush 3 ML SYRINGE IVFLUSH ×2 (09:53→20:28)
[2022-07-22] MEDS: Nystatin Powder 15 GM BOTTLE 1 APPL TOPICAL ×2 (09:53→20:27)
--- NOTE | 2022-07-22 14:17 | P.PNIM_ITS ---
Subjective Subjective Date of Service: 07/22/22 Interval History: pt seen and examined at bedside. she reports better pain control. She denies any chest pain. abdomen still hurts sometimes, but not as severe. She denies any nausea, tolerated lunch but feels that she ate too much. she feels weak and unable to walk. looking forward to working with PT. denies any chest pain, no palpitations, no urinary symptoms and no lower extremity edema Review of Systems Review of Systems: Yes all other systems are reviewed and are negative Physical Exam Vital Signs: Vital Signs: Last Vital Signs Temp 97.6 F 07/22/22 11:28 Pulse 90 07/22/22 11:28 Resp 18 07/22/22 11:28 BP 112/60 07/22/22 11:28 Pulse Ox 99 07/22/22 11:28 O2 Del Method 07/22/22 11:28 O2 Flow Rate 1 07/21/22 19:39 FiO2 98 07/21/22 19:39 Oxygen Flow Rate 35 06/13/22 21:00 BMI result Body Mass Index 30.7 Const: Other: patient alert oriented, no acute distress Resp: Other: lungs clear to auscultation bilaterally GI: Other: abdomen is slightly distended, mildly tender on palpation Extrem: Other: no lower extremity edema Objective Data Active Medications Heparin Sodium (Porcine) 50 (units/ Sodium Chloride 5 ml) 0 units IVFLUSH TID [facility] Last Admin: 07/22/22 08:52 Dose: 50 unit Documented By: GRISELDA Enoxaparin Sodium (Enoxaparin Sodium 40 Mg/0.4 Ml Syringe) 40 mg SUBCUT Q24H [facility] Last Admin: 07/22/22 08:52 Dose: 40 mg Documented By: GRISELDA Furosemide (Furosemide 40 Mg Tablet) 40 mg PO DAILY [facility]; Protocol Last Admin: 07/22/22 08:53 Dose: 40 mg Documented By: GRISELDA Metronidazole (Flagyl) 500 mg in 100 mls @ 100 mls/hr IV Q8H [facility] Stop: 07/23/22 00:00 Last Admin: 07/22/22 14:08 Dose: 100 mls/hr Documented By: GRISELDA Voriconazole 200 mg/ Sodium (Chloride) 100 mls @ 50 mls/hr IV Q12H [facility] Stop: 07/23/22 00:00 Last Infusion: 07/22/22 12:09 Dose: 0 mls/hr Documented By: GRISELDA Hydromorphone HCl (Dilaudid) 10 mg in 50 mls @ 0 mls/hr IV .Q0M [facility]; Protocol Last Admin: 07/22/22 08:46 Dose: 0.5 mg/hr, 2.5 mls/hr Documented By: GRISELDA Metoprolol Tartrate (Metoprolol Tartrate 25 Mg Tablet) 75 mg G-TUBE Q8H [facility]; Protocol Last Admin: 07/22/22 08:53 Dose: 75 mg Documented By: GRISELDA Patient Own Med ( (Ajovy 1.5 Ml)) 1.5 ml SUBCUT Q30D [facility] Last Admin: 06/30/22 13:56 Dose: 1.5 ml Documented By: LAKESHIA Nystatin (Nystatin Powder 15 Gm Bottle) 1 appl TOPICAL BID [facility]; Protocol Last Admin: 07/22/22 09:53 Dose: 1 appl Documented By: GRISELDA Pharmacy Consult (Consult Rx Perform Med Rec) 1 each MISCELLANE ONCE PRN PRN Reason: Consult order Potassium Chloride (Potassium Chloride Packet 20 Meq Packet) 20 meq PO DAILY [facility] Last Admin: 07/22/22 08:52 Dose: 20 meq Documented By: GRISELDA Sodium Chloride (0.9 % Sodium Chloride Flush 3 Ml Syringe) 3 ml IVFLUSH QSHIFT [facility] Last Admin: 07/22/22 09:53 Dose: 3 ml Documented By: GRISELDA Sumatriptan Succinate (Sumatriptan Succinate 6 Mg/0.5 Ml Vial) 6 mg SUBCUT DAILY PRN PRN Reason: migraine headache Last Admin: 07/11/22 16:21 Dose: 6 mg Documented By: SANTOS Labs CBC & Chem 7: 07/19/22 17:22 07/22/22 06:11 Labs: Laboratory Results - last 24 hr 07/22/22 06:11 Anion Gap 19 Estim Creat Clear Calc 136.4 Estimated GFR > 60 Random Glucose 127 H Calcium 8.0 L Microbiology Microbiology Results: Microbiology 07/16/22 18:40 Blood Culture - Final Blood - Venous No growth after 5 days. 07/16/22 18:40 Blood Culture - Final Blood - Venous No growth after 5 days. 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 The procedure was extremely difficult and prolonged 2? adhesions, and was complicated by multiple enterotomies which were primarily closed.? She developed progressive septic shock during the procedure, complicated by marked hypovolemia and coagulopathy.? EBL was 2000cc.? She was given multiple units of blood, FFP, and cryo. Postoperatively, she was transferred to the ICU.? Postop echo but Dr. Pinedo still showed hyperdynamic LV function with no significant RV dysfunction.? She was put on linezolid Levaquin and Flagyl.? She was given two more units of blood on Jul 14. patient was extubated Jul 16 without incident.? Pressors came off and she was started on Lasix because of massive anasarca, Kaofeed tube started due to poor po intake ,pt remains on Flagyl and voriconazole,levaquin stopped, patient subsequently transferred to intermediate care unit on 07/20. #Toxic megacolon underwent difficult re-exploration and colectomy 07/13, - stoma functioning well with liquidy stools, - NG tube discontinued - continue chopped advanced diet and thin liquids being followed by speech therapist, continue supplements. 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 follow BP and pulse closely continue tele mon itor, BP stable # ICU myopathy - continue PT out of bed to chair as tolerated #C diff colitis - on iv flagyl last dose 07/23 #Status post septic shock secondary to perforated viscus with fecal peritonitis and fungal peritonitis - Continue voriconazole last dose 07/23 Resolved issues SABINE resolved Toxic metabolic encephalopathy resolved Hypophosphatemia/hypomagnesemia resolved Left upper extremity catheter associated DVT proximal left brachial vein diagnosed on 06/27, midline catheter was removed patient treated with Lovenox subQ b.i.d. subsequently discontinued DVT prophylaxis with Lovenox Patient requires continued inpatient hospitalization due to being on IV Dilaudid pump for pain control, will gradually wean dilaudid and also on IV Lasix with electrolyte abnormality and poor by mouth intake need close electrolyte monitoring Quality Stroke Does the patient have a stroke diagnosis?: No VTE Prior VTE?: No VTE Risk Level:: Medical - moderate - high VTE Device Contraindication: N/A - Device Ordered VTE Drug Contraindication: N/A - Med Ordered
[2022-07-23] VITALS (12 sets, daily range): BP systolic 102–128; BP diastolic 56–66; PULSE 94–111; RESP 16–20; TEMP 36.2–37.3; O2SAT 93–99; BMI 30.8
--- NOTE | 2022-07-23 00:01 | PC.NURSE ---
Pt on Dilaudid RETAIL SALESWORKER pump. Bag changed at 0000. Pt had received 19 boluses equalling 47.5ml of 50ml bag. Infusion complete on pump. 2.5ml wasted at jayesh rodriguez RN.
[2022-07-23] MEDS: Metoprolol Tartrate 25 MG TABLET 75 MG G-TUBE ×3 (01:55→17:44)
[2022-07-23] MEDS: Heparin Sodium,Porcine Flush 50 UNITS, 0.9 % Sodium Chloride Flush 5 ML IVFLUSH ×3 (07:37→19:50)
[2022-07-23] MEDS: 0.9 % Sodium Chloride Flush 3 ML SYRINGE IVFLUSH ×3 (07:37→19:49)
[2022-07-23] MEDS: Potassium Chloride Packet 20 MEQ PACKET PO (07:37)
[2022-07-23] MEDS: Enoxaparin Sodium 40 MG/0.4 ML SYRINGE SUBCUT (07:38)
[2022-07-23] MEDS: Furosemide 40 MG TABLET PO (07:38)
[2022-07-23] MEDS: HYDROmorphone HCl/NS 10 MG/50 ML PIGGYBACK 2.5 MG IV (07:42)
[2022-07-23] MEDS: Nystatin Powder 15 GM BOTTLE 1 APPL TOPICAL (07:55)
--- NOTE | 2022-07-23 10:56 | PM.PNGS ---
Subjective Subjective Date of Service: 07/25/22 Interval history: no new complaints says her Marie catheter was kinked last night and bladder filled up with pain Marie now working again tolerating diet stoma functioning Physical Exam Vital Signs: Vital Signs: Last Vital Signs Temp 98.2 F 07/23/22 07:42 Pulse 102 H 07/23/22 08:00 Resp 16 07/23/22 08:00 BP 103/65 07/23/22 08:00 Pulse Ox 98 07/23/22 08:00 O2 Del Method 07/23/22 07:42 O2 Flow Rate 2 07/23/22 07:42 FiO2 98 07/21/22 19:39 Oxygen Flow Rate 35 06/13/22 21:00 BMI result Body Mass Index 30.8 Const: Other: some shortness of breath as baseline, very conversant and alert Resp: Other: some shortness of breath as baseline Cardio: Other: tachycardia but regular GI: Other: stoma functioning well with liquid stool and gas, incision with scanty drainage Palpation (GI): Soft to palpation and not firm Objective Data Active Medications Heparin Sodium (Porcine) 50 (units/ Sodium Chloride 5 ml) 0 units IVFLUSH TID [facility] Last Admin: 07/23/22 07:37 Dose: 50 unit Documented By: GRISELDA Enoxaparin Sodium (Enoxaparin Sodium 40 Mg/0.4 Ml Syringe) 40 mg SUBCUT Q24H [facility] Last Admin: 07/23/22 07:38 Dose: 40 mg Documented By: GRISELDA Furosemide (Furosemide 40 Mg Tablet) 40 mg PO DAILY [facility]; Protocol Last Admin: 07/23/22 07:38 Dose: 40 mg Documented By: GRISELDA Hydromorphone HCl (Dilaudid) 10 mg in 50 mls @ 0 mls/hr IV .Q0M [facility]; Protocol Last Admin: 07/23/22 07:42 Dose: 0.5 mg/hr, 2.5 mls/hr Documented By: GRISELDA Metoprolol Tartrate (Metoprolol Tartrate 25 Mg Tablet) 75 mg G-TUBE Q8H [facility]; Protocol Last Admin: 07/23/22 10:17 Dose: 75 mg Documented By: GRISELDA Patient Own Med ( (Ajovy 1.5 Ml)) 1.5 ml SUBCUT Q30D [facility] Last Admin: 06/30/22 13:56 Dose: 1.5 ml Documented By: LAKESHIA Nystatin (Nystatin Powder 15 Gm Bottle) 1 appl TOPICAL BID [facility]; Protocol Last Admin: 07/23/22 07:55 Dose: 1 appl Documented By: GRISELDA Pharmacy Consult (Consult Rx Perform Med Rec) 1 each MISCELLANE ONCE PRN PRN Reason: Consult order Potassium Chloride (Potassium Chloride Packet 20 Meq Packet) 20 meq PO DAILY [facility] Last Admin: 07/23/22 07:37 Dose: 20 meq Documented By: GRISELDA Sodium Chloride (0.9 % Sodium Chloride Flush 3 Ml Syringe) 3 ml IVFLUSH QSHIFT [facility] Last Admin: 07/23/22 07:37 Dose: 3 ml Documented By: GRISELDA Sumatriptan Succinate (Sumatriptan Succinate 6 Mg/0.5 Ml Vial) 6 mg SUBCUT DAILY PRN PRN Reason: migraine headache Last Admin: 07/11/22 16:21 Dose: 6 mg Documented By: SANTOS Labs CBC & Chem 7: 07/24/22 05:57 07/24/22 05:57 Procedures Date of Service Date of Service: 07/23/22 Arterial Line Size (Gauge): 16 Progress Note: A&P Assessment and plan (1) S/P colectomy: Status: Acute Assessment and Plan: ileostomy functioning push oral intake may need periodic IV fluids if ileostomy output high pain management - DC PROJECT ANALYST pump overall, she is coming along Time Spent With Patient Time: Total time spent is greater than 50% in coordination of care (as documented) at patient's floor/unit and/or counseling patient: Quality Stroke Does the patient have a stroke diagnosis?: No VTE Prior VTE?: No VTE Risk Level:: Medical - moderate - high VTE Device Contraindication: N/A - Device Ordered VTE Drug Contraindication: N/A - Med Ordered
--- NOTE | 2022-07-23 11:29 | PC.NURSE ---
this note pertains to 07/22/22 colostomy output on pt. 250ml - liquid, yellow. 150ml - liquid, yellow. 200ml - liquid, yellow.
--- NOTE | 2022-07-23 11:50 | P.PNIM_ITS ---
Subjective Subjective Date of Service: 07/23/22 Interval History: patient seen and examined at bedside. She reports the COURSEWARE DEVELOPER pump does not work for her at nighttime when she is sleeping, she wakes up in pain because she forgets to pressed the button. She is tolerating her food well, she reports currently no abdominal pain nausea or vomiting, her stoma is functioning. No fever or chills overnight, she had a kinked Marie catheter, but is now off function well. Urinary symptoms otherwise. Review of Systems Review of Systems: Yes all other systems are reviewed and are negative Physical Exam Vital Signs: Vital Signs: Last Vital Signs Temp 97.6 F 07/23/22 11:45 Pulse 108 H 07/23/22 11:45 Resp 18 07/23/22 11:45 BP 110/58 L 07/23/22 11:45 Pulse Ox 98 07/23/22 11:45 O2 Del Method 07/23/22 11:45 O2 Flow Rate 2 07/23/22 07:42 FiO2 98 07/21/22 19:39 Oxygen Flow Rate 35 06/13/22 21:00 BMI result Body Mass Index 30.8 Const: Other: patient alert oriented, no acute distress Resp: Other: lungs clear to auscultation bilaterally GI: Other: abdomen is slightly distended, mildly tender on palpation Extrem: Other: no lower extremity edema Objective Data Active Medications Heparin Sodium (Porcine) 50 (units/ Sodium Chloride 5 ml) 0 units IVFLUSH TID [facility] Last Admin: 07/23/22 07:37 Dose: 50 unit Documented By: GRISELDA Enoxaparin Sodium (Enoxaparin Sodium 40 Mg/0.4 Ml Syringe) 40 mg SUBCUT Q24H [facility] Last Admin: 07/23/22 07:38 Dose: 40 mg Documented By: GRISELDA Furosemide (Furosemide 40 Mg Tablet) 40 mg PO DAILY [facility]; Protocol Last Admin: 07/23/22 07:38 Dose: 40 mg Documented By: GRISELDA Hydromorphone HCl (Hydromorphone Hcl 0.5 Mg/0.5 Ml Syringe) 0.5 mg IVPUSH Q2H PRN; Protocol PRN Reason: Pain, Severe (Pain Scale 7-10) Metoprolol Tartrate (Metoprolol Tartrate 25 Mg Tablet) 75 mg G-TUBE Q8H [facility]; Protocol Last Admin: 07/23/22 10:17 Dose: 75 mg Documented By: GRISELDA Patient Own Med ( (Ajovy 1.5 Ml)) 1.5 ml SUBCUT Q30D [facility] Last Admin: 06/30/22 13:56 Dose: 1.5 ml Documented By: LAKESHIA Nystatin (Nystatin Powder 15 Gm Bottle) 1 appl TOPICAL BID [facility]; Protocol Last Admin: 07/23/22 07:55 Dose: 1 appl Documented By: GRISELDA Pharmacy Consult (Consult Rx Perform Med Rec) 1 each MISCELLANE ONCE PRN PRN Reason: Consult order Potassium Chloride (Potassium Chloride Packet 20 Meq Packet) 20 meq PO DAILY [facility] Last Admin: 07/23/22 07:37 Dose: 20 meq Documented By: GRISELDA Sodium Chloride (0.9 % Sodium Chloride Flush 3 Ml Syringe) 3 ml IVFLUSH QSHIFT [facility] Last Admin: 07/23/22 07:37 Dose: 3 ml Documented By: GRISELDA Sumatriptan Succinate (Sumatriptan Succinate 6 Mg/0.5 Ml Vial) 6 mg SUBCUT DAILY PRN PRN Reason: migraine headache Last Admin: 07/11/22 16:21 Dose: 6 mg Documented By: SANTOS Labs CBC & Chem 7: 07/19/22 17:22 07/22/22 06:11 Assessment and Plan (1) S/P colectomy: Status: Acute (2) Megacolon, toxic: Status: Acute (3) Hemorrhagic shock: Status: Acute (4) Tachycardia: Status: Acute (5) Crohn's disease: Status: Acute (6) Status post colostomy: Status: Acute Plan This is a 62-year-old female who was initially admitted to the hospital on 05/18 22 with colitis/ Crohn's flare, she had a flex sig showed perforation with abscesses, taken to OR for ex lap with colostomy after found to have extensive fecal soilage in peritoneum, she was severely septic, she was sent to the ICU and intubated, course and was complicated by multiple intra-abdominal abscesses causing fevers with multiple drains placed by IR. She was then transitioned to 2 fees and then to oral diet. Currently on oral diet. On Jul 13 pt taken to the OR for E-lap and 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 The procedure was extremely difficult and prolonged 2? adhesions, and was complicated by multiple enterotomies which were primarily closed.? She developed progressive septic shock during the procedure, complicated by marked hypovolemia and coagulopathy.? EBL was 2000cc.? She was given multiple units of blood, FFP, and cryo. Postoperatively, she was transferred to the ICU.? Postop echo but Dr. Pinedo still showed hyperdynamic LV function with no significant RV dysfunction.? She was put on linezolid Levaquin and Flagyl.? She was given two more units of blood on Jul 14. patient was extubated Jul 16 without incident.?patient subsequently transferred to intermediate care unit on 07/20. #Toxic megacolon underwent difficult re-exploration and colectomy 07/13, - stoma functioning well with liquidy stools, - NG tube discontinued - Tolerating oral intake,continue chopped advanced diet and thin liquids being followed by speech therapist, continue supplements. - Patient on IV Dilaudid pre sales technical consultant- discontinued 07/23 - placed on IV push Dilaudid - case was discussed with surgery, we will continue to push for p.o. intake, monitor stoma output, may require intermittent IV fluids depending on stoma output - monitor pain management #Gross anasarca - improved, - transitioned to PO lasix 40 daily - to avoid dehydration since has significant stoma output # Hypokalemia - likely due to Lasix and high stoma output - repleted - follow bmp # Tachycardia - ongoing persistent likely due to ongoing SIRS, - continue metoprolol 75 mg t.i.d. follow BP and pulse closely continue tele monitor, BP stable # ICU myopathy - continue PT out of bed to chair as tolerated - plan for rehab #C diff colitis - on iv flagyl last dose 07/23 #Status post septic shock secondary to perforated viscus with fecal peritonitis and fungal peritonitis - Continue voriconazole last dose 07/23 Resolved issues SABINE resolved Toxic metabolic encephalopathy resolved Hypophosphatemia/hypomagnesemia resolved Left upper extremity catheter associated DVT proximal left brachial vein diagnosed on 06/27, midline catheter was removed patient treated with Lovenox subQ b.i.d. subsequently discontinued DVT prophylaxis with Lovenox Patient requires continued inpatient hospitalization due to being on IV Dilaudid for pain control, will gradually wean dilaudid and plan for rehab Quality Stroke Does the patient have a stroke diagnosis?: No VTE Prior VTE?: No VTE Risk Level:: Medical - moderate - high VTE Device Contraindication: N/A - Device Ordered VTE Drug Contraindication: N/A - Med Ordered
[2022-07-23] MEDS: HYDROmorphone HCl 0.5 MG/0.5 ML SYRINGE IVPUSH ×5 (13:23→21:48)
--- NOTE | 2022-07-23 15:32 | PC.NURSE ---
pt reports 7/10 sharp, constant, pain where colostomy bag is located. last dose of PRN q3 hour dilaudid was given @ 13:23. this nurse reached out MD CRISTIANE ok to give next dose early.
--- NOTE | 2022-07-23 18:26 | PM.EVENT ---
Event Note Date of Service: 07/23/22 Event Note: noted to have brbpr, vitals stable, patient alert, no acute distress, discussed with surgery, will monitor vitals, hgb, transfuse as needed.
--- NOTE | 2022-07-23 18:36 | PC.NURSE ---
pt had an episode of serosanguineous fluid coming out of rectum around 17:12. about almost entire michelle pad was drenched. upon assessment fluid seems to come out intermittenly when pt is being turned to get cleaned up. MD notified, stat labs ordered. continue to monitor vitals and labs per MD. pt asymptomatic. VS : BP 102/56 HR 99 RR20, O2 93% room air, temp 97.6.
[2022-07-23 18:47] LABS: Hematocrit 34.1 % (37.0-47.0); Hemoglobin 10.8 g/dl (12.0-16.0); Mean Corpuscular HGB Conc 31.7 g/dl (31.0-35.0); Mean Corpuscular Hemoglobin 28.5 pg (27.0-33.0); Mean Platelet Volume 9.8 fL (9.4-12.3); Platelet Count 432 X10*3/uL (160-400); Red Blood Count 3.79 X10*6/uL (4.20-5.50); Red Cell Distribution Width 15.4 % (11.0-16.0); White Blood Count 15.9 X10*3/uL (4.8-10.8)
[2022-07-23 23:35] LABS: Hematocrit 31.7 % (37.0-47.0); Hemoglobin 10.2 g/dl (12.0-16.0)
[2022-07-24] VITALS (7 sets, daily range): BP systolic 108–130; BP diastolic 54–76; PULSE 95–104; RESP 15–24; TEMP 36.3–36.9; O2SAT 97–100
[2022-07-24] MEDS: HYDROmorphone HCl 0.5 MG/0.5 ML SYRINGE IVPUSH ×5 (00:15→17:27)
[2022-07-24 06:34] LABS: MANUAL DIFF FLAG NO
[2022-07-24 06:37] LABS: Basophils Percent Auto 0.3 % (0-2); Eosinophils Percent Auto 0.1 % (0-4); Hematocrit 33.4 % (37.0-47.0); Hemoglobin 10.8 g/dl (12.0-16.0); Imm Gran Abs Auto 0.26 X10*3/uL (0.00-0.03); Imm Gran Pct Auto 2.2 % (0.0-0.4); Lymphocytes Absolute Auto 1.7 X10*3/uL (1.2-4.9); Lymphocytes Percent Auto 14.2 % (20-40); Mean Corpuscular HGB Conc 32.3 g/dl (31.0-35.0); Mean Corpuscular Hemoglobin 29.2 pg (27.0-33.0); Mean Corpuscular Volume 90.3 fL (80.0-98.0); Mean Platelet Volume 9.9 fL (9.4-12.3); Monocytes Absolute Auto 0.5 X10*3/uL (0.1-1.2); Monocytes Percent Auto 4.6 % (2-11); Neutrophils Absolute Auto 9.1 x10*3/uL (2.0-8.3); Neutrophils Percent Auto 78.6 % (45-73); Platelet Count 450 X10*3/uL (160-400); Red Cell Distribution Width 15.1 % (11.0-16.0); White Blood Count 11.6 X10*3/uL (4.8-10.8)
[2022-07-24 07:21] LABS: Anion Gap 14 (12-20); Blood Urea Nitrogen 10 mg/dL (9-16); Calcium 8.6 mg/dL (8.4-10.2); Carbon Dioxide 32 mmol/L (22-29); Chloride 97 mmol/L (96-108); Creatinine Clr Calc Pharmacy 139.8; Estimated Glomerular Filt Rate > 60; Glucose Random 106 mg/dL (60-115); Potassium 3.9 mmol/L (3.3-5.1); Sodium 139 mmol/L (135-145)
[2022-07-24] MEDS: Furosemide 40 MG TABLET PO (07:54)
[2022-07-24] MEDS: Potassium Chloride Packet 20 MEQ PACKET PO (07:54)
[2022-07-24] MEDS: Heparin Sodium,Porcine Flush 50 UNITS, 0.9 % Sodium Chloride Flush 5 ML IVFLUSH ×3 (07:54→21:43)
--- NOTE | 2022-07-24 07:59 | PM.PNGS ---
Subjective Subjective Date of Service: 07/25/22 Interval history: says she had some stool and blood from her anus yesterday high output, liquid, from ileostomy pain okay tolerating diet well Physical Exam Vital Signs: Vital Signs: Last Vital Signs Temp 97.5 F 07/24/22 07:26 Pulse 104 H 07/24/22 07:26 Resp 16 07/24/22 07:26 BP 124/66 07/24/22 07:26 Pulse Ox 98 07/24/22 07:26 O2 Del Method 07/24/22 07:26 O2 Flow Rate 2 07/24/22 07:26 FiO2 98 07/21/22 19:39 Oxygen Flow Rate 35 06/13/22 21:00 BMI result Body Mass Index 30.8 Const: Other: shortness of breath as baseline, very conversant Resp: Other: short of breath as baseline Cardio: Rate: tachycardic GI: Other: soft, no guarding rebound, ileostomy with very liquid output, nonbloody Objective Data Active Medications Heparin Sodium (Porcine) 50 (units/ Sodium Chloride 5 ml) 0 units IVFLUSH TID [facility] Last Admin: 07/23/22 19:50 Dose: 5 unit Documented By: SIGRID Enoxaparin Sodium (Enoxaparin Sodium 40 Mg/0.4 Ml Syringe) 40 mg SUBCUT Q24H [facility] Last Admin: 07/23/22 07:38 Dose: 40 mg Documented By: GRISELDA Furosemide (Furosemide 40 Mg Tablet) 40 mg PO DAILY [facility]; Protocol Last Admin: 07/23/22 07:38 Dose: 40 mg Documented By: GRISELDA Hydromorphone HCl (Hydromorphone Hcl 0.5 Mg/0.5 Ml Syringe) 0.5 mg IVPUSH Q2H PRN; Protocol PRN Reason: Pain, Severe (Pain Scale 7-10) Last Admin: 07/24/22 00:15 Dose: 0.5 mg Documented By: SIGRID Metoprolol Tartrate (Metoprolol Tartrate 25 Mg Tablet) 75 mg G-TUBE Q8H [facility]; Protocol Last Admin: 07/24/22 03:26 Dose: Not Given Documented By: SIGRID Non-Admin Reason: Patient Refused Patient Own Med ( (Ajovy 1.5 Ml)) 1.5 ml SUBCUT Q30D [facility] Last Admin: 06/30/22 13:56 Dose: 1.5 ml Documented By: LAKESHIA Nystatin (Nystatin Powder 15 Gm Bottle) 1 appl TOPICAL BID [facility]; Protocol Last Admin: 07/23/22 20:10 Dose: Not Given Documented By: SIGRID Non-Admin Reason: Previously Administered Pharmacy Consult (Consult Rx Perform Med Rec) 1 each MISCELLANE ONCE PRN PRN Reason: Consult order Potassium Chloride (Potassium Chloride Packet 20 Meq Packet) 20 meq PO DAILY [facility] Last Admin: 07/23/22 07:37 Dose: 20 meq Documented By: GRISELDA Sodium Chloride (0.9 % Sodium Chloride Flush 3 Ml Syringe) 3 ml IVFLUSH QSHIFT [facility] Last Admin: 07/23/22 19:49 Dose: 3 ml Documented By: SIGRID Sumatriptan Succinate (Sumatriptan Succinate 6 Mg/0.5 Ml Vial) 6 mg SUBCUT DAILY PRN PRN Reason: migraine headache Last Admin: 07/11/22 16:21 Dose: 6 mg Documented By: SANTOS Labs CBC & Chem 7: 07/24/22 05:57 07/24/22 05:57 Labs: Laboratory Results - last 24 hr 07/23/22 07/24/22 07/24/22 18:40 05:57 05:57 MCV 90.0 90.3 MCH 28.5 29.2 MCHC 31.7 32.3 RDW 15.4 15.1 Plt Count 432 H D 450 H MPV 9.8 9.9 Immature Gran % (Auto) 2.2 H Neut % (Auto) 78.6 H Lymph % (Auto) 14.2 L [place] % (Auto) 4.6 Eos % (Auto) 0.1 Baso % (Auto) 0.3 Lymph # (Auto) 1.7 [place] # (Auto) 0.5 Eos # (Auto) 0.0 Baso # (Auto) 0.0 Abs Immat Gran (auto) 0.26 H Absolute Neuts (auto) 9.1 H Absolute Nucleated RBC 0.000 0.000 Nucleated RBC % (auto) 0.0 0.0 Anion Gap 14 Estim Creat Clear Calc 139.8 Estimated GFR > 60 Random Glucose 106 Calcium 8.6 D Procedures Date of Service Date of Service: 07/24/22 Arterial Line Size (Gauge): 16 Progress Note: A&P Assessment and plan (1) S/P colectomy: Status: Acute Assessment and Plan: says output from ileostomy is high I explained to her that this is not unusual for an ileostomy may need supplementary IV fluids for ileostomy fluid losses she had some stool and blood per anus yesterday - this is likely from residual retained stools in the rectosigmoid hemoglobin okay stoma care Time Spent With Patient Time: Total time spent is greater than 50% in coordination of care (as documented) at patient's floor/unit and/or counseling patient: Quality Stroke Does the patient have a stroke diagnosis?: No VTE Prior VTE?: No VTE Risk Level:: Medical - moderate - high VTE Device Contraindication: N/A - Device Ordered VTE Drug Contraindication: N/A - Med Ordered
[2022-07-24] MEDS: 0.9 % Sodium Chloride Flush 3 ML SYRINGE IVFLUSH ×2 (08:02→16:27)
[2022-07-24] MEDS: Nystatin Powder 15 GM BOTTLE 1 APPL TOPICAL ×2 (08:03→21:45)
[2022-07-24] MEDS: Metoprolol Tartrate 25 MG TABLET 75 MG G-TUBE ×2 (10:23→17:27)
[2022-07-24] MEDS: Loperamide HCl 2 MG CAPSULE 4 MG PO (11:44)
--- NOTE | 2022-07-24 12:42 | P.PNIM_ITS ---
Subjective Subjective Date of Service: 07/24/22 Interval History: Complaining of abdominal pain requesting for more frequent pain medication currently receiving IV Dilaudid 0.5 mg Q 2 hours, complaining of decreased appetite, back pain , denies nausea vomiting, No headache no dizziness, no fevers no chills, requesting Protonix since allergic to omeprazole, concerned about use of Imodium since developed C diff during last hospitalization, also requesting for home medication Cymbalta Review of Systems CVS no chest pain Respiratory no cough, no shortness of breath no urinary symptoms Review of Systems: Yes all other systems are reviewed and are negative Physical Exam Vital Signs: Vital Signs: Last Vital Signs Temp 97.4 F 07/24/22 12:00 Pulse 103 H 07/24/22 12:00 Resp 18 07/24/22 12:00 BP 122/62 07/24/22 12:00 Pulse Ox 100 07/24/22 12:00 O2 Del Method 07/24/22 12:00 O2 Flow Rate 2 07/24/22 12:00 FiO2 98 07/21/22 19:39 Oxygen Flow Rate 35 06/13/22 21:00 BMI result Body Mass Index 30.8 Const: Other: Gen:? Awake alert no distress Neck: supple, no JVD Lungs: clear to auscultation bilaterally Heart: regular, tachycardic, no murmurs Abd: soft, stoma with liquidy stool , tender to superficial touch, dressing to mid abdomen, no drainage, bowel sounds audible, left sided drains with small drainage Ext:? Edema significantly improved from before, persistent swelling dorsum of feet right greater than left Skin: warm/well-perfused Neuro: alert and oriented x3, no focal findings Psych: appropriate affect Marie catheter in place Objective Data Active Medications Heparin Sodium (Porcine) 50 (units/ Sodium Chloride 5 ml) 0 units IVFLUSH TID [facility] Last Admin: 07/24/22 07:54 Dose: 50 unit Documented By: GRISELDA Enoxaparin Sodium (Enoxaparin Sodium 40 Mg/0.4 Ml Syringe) 40 mg SUBCUT Q24H [facility] Last Admin: 07/23/22 07:38 Dose: 40 mg Documented By: GRISELDA Furosemide (Furosemide 40 Mg Tablet) 40 mg PO DAILY [facility]; Protocol Last Admin: 07/24/22 07:54 Dose: 40 mg Documented By: GRISELDA Hydromorphone HCl (Hydromorphone Hcl 0.5 Mg/0.5 Ml Syringe) 0.5 mg IVPUSH Q2H PRN; Protocol PRN Reason: Pain, Severe (Pain Scale 7-10) Last Admin: 07/24/22 10:24 Dose: 0.5 mg Documented By: RYAN Loperamide HCl (Loperamide Hcl 2 Mg Capsule) 2 mg PO Q6H [facility] Metoprolol Tartrate (Metoprolol Tartrate 25 Mg Tablet) 75 mg G-TUBE Q8H [facility]; Protocol Last Admin: 07/24/22 10:23 Dose: 75 mg Documented By: RYAN Patient Own Med ( (Ajovy 1.5 Ml)) 1.5 ml SUBCUT Q30D [facility] Last Admin: 06/30/22 13:56 Dose: 1.5 ml Documented By: LAKESHIA Nystatin (Nystatin Powder 15 Gm Bottle) 1 appl TOPICAL BID [facility]; Protocol Last Admin: 07/24/22 08:03 Dose: 1 appl Documented By: GRISELDA Pharmacy Consult (Consult Rx Perform Med Rec) 1 each MISCELLANE ONCE PRN PRN Reason: Consult order Potassium Chloride (Potassium Chloride Packet 20 Meq Packet) 20 meq PO DAILY [facility] Last Admin: 07/24/22 07:54 Dose: 20 meq Documented By: GRISELDA Sodium Chloride (0.9 % Sodium Chloride Flush 3 Ml Syringe) 3 ml IVFLUSH QSHIFT [facility] Last Admin: 07/24/22 08:02 Dose: 3 ml Documented By: GIRSELDA Sumatriptan Succinate (Sumatriptan Succinate 6 Mg/0.5 Ml Vial) 6 mg SUBCUT DAILY PRN PRN Reason: migraine headache Last Admin: 07/11/22 16:21 Dose: 6 mg Documented By: SANTOS Labs CBC & Chem 7: 07/24/22 05:57 07/24/22 05:57 Labs: Laboratory Results - last 24 hr 07/23/22 07/24/22 07/24/22 18:40 05:57 05:57 MCV 90.0 90.3 MCH 28.5 29.2 MCHC 31.7 32.3 RDW 15.4 15.1 Plt Count 432 H D 450 H MPV 9.8 9.9 Immature Gran % (Auto) 2.2 H Neut % (Auto) 78.6 H Lymph % (Auto) 14.2 L [place] % (Auto) 4.6 Eos % (Auto) 0.1 Baso % (Auto) 0.3 Lymph # (Auto) 1.7 [place] # (Auto) 0.5 Eos # (Auto) 0.0 Baso # (Auto) 0.0 Abs Immat Gran (auto) 0.26 H Absolute Neuts (auto) 9.1 H Absolute Nucleated RBC 0.000 0.000 Nucleated RBC % (auto) 0.0 0.0 Anion Gap 14 Estim Creat Clear Calc 139.8 Estimated GFR > 60 Random Glucose 106 Calcium 8.6 D Assessment and Plan (1) S/P colectomy: Status: Acute (2) Megacolon, toxic: Status: Acute (3) Hemorrhagic shock: Status: Acute (4) Tachycardia: Status: Acute (5) Crohn's disease: Status: Acute (6) Status post colostomy: Status: Acute Plan 62-year-old female who was initially admitted to the hospital on 05/18 22 with colitis/ Crohn's flare, she had a flex sig showed perforation with abscesses, taken to OR for ex lap with colostomy after found to have extensive fecal soilage in peritoneum, she was severely septic, she was sent to the ICU and intubated, course and was complicated by multiple intra-abdominal abscesses causing fevers with multiple drains placed by IR. She was then transitioned to 2 fees and then to oral diet. Currently on oral diet. On Jul 13 pt taken to the OR for E-lap and 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 The procedure was extremely difficult and prolonged 2? adhesions, and was complicated by multiple enterotomies which were primarily closed.? She developed progressive septic shock during the procedure, complicated by marked hypovolemia and coagulopathy.? EBL was 2000cc.? She was given multiple units of blood, FFP, and cryo. Postoperatively, she was transferred to the ICU.? Postop echo but Dr. Pinedo still showed hyperdynamic LV function with no significant RV dysfunction.? She was put on linezolid Levaquin and Flagyl.? She was given two more units of blood on Jul 14. patient was extubated Nov without incident.?patient subsequently transferred to intermediate care unit on 07/20. #Toxic megacolon underwent difficult re-exploration and colectomy 07/13, - stoma functioning well , persistent liquidy stools, - Tolerating oral intake,chopped diet and thin liquids being followed by speech therapist, continue supplements. - Patient on IV Dilaudid 0.5 mg q.2 hours, RECEPTIONIST NURSE pump discontinued - case was discussed with surgery, we will continue to push for p.o. intake, monitor stoma output, may require intermittent IV fluids depending on stoma output - persistent abdominal pain will place on Lidoderm patch likely paresthesia due to surgery , will add as needed oxycodone -requested family to bring Protonix -will resume Cymbalta # Bright red blood per rectum resolved hematocrit remains stable likely from residual retained stools in the rectosigmoid #Gross anasarca - improved, now on PO lasix 40 daily, edema improved will DC Lasix # Hypokalemia resolved - likely due to Lasix and high stoma output , continue potassium supplement low- dose and follow labs # Tachycardia - ongoing persistent likely due to ongoing SIRS, - continue metoprolol 75 mg t.i.d. follow BP and pulse closely continue tele monitor, BP stable # ICU myopathy - PT OT, plan for rehab #C diff colitis finished course of Flagyl, WBC improved to 11.6 #Status post septic shock secondary to perforated viscus with fecal peritonitis and fungal peritonitis, finish course of voriconazole on 07/23 Resolved issues SABINE resolved Toxic metabolic encephalopathy resolved Hypophosphatemia/hypomagnesemia resolved Left upper extremity catheter associated DVT proximal left brachial vein diagnosed on 06/27, midline catheter was removed patient treated with Lovenox subQ b.i.d. subsequently discontinued DVT prophylaxis with Lovenox Patient requires continued inpatient hospitalization due to being on IV Dilaudid for pain control, will gradually wean dilaudid and plan for rehab Quality Stroke Does the patient have a stroke diagnosis?: No VTE Prior VTE?: No VTE Risk Level:: Medical - moderate - high VTE Device Contraindication: N/A - Device Ordered VTE Drug Contraindication: N/A - Med Ordered
--- NOTE | 2022-07-24 12:59 | MHC.CM.PN ---
Met with patient and spouse for discharge planning. 1st choice is Acute rehab @ [facility]. A clinical update has been sent. PT and OT are planned for today. Patient is OON @ all 3 [facility] in [place].
--- NOTE | 2022-07-24 13:53 | MHC.CLN ---
F/U PO INTAKE 50-100% PT EATS SMALL PORTIONS DIET RX: CHOPPED-APPROPRIATE PT RECEIVING ENSURE TID TO PROVIDE 1050KCALS, 60G PROTEIN WITH 100% ACCEPTANCE PT SIPS SUPP THROUGHOUT THE DAY (DOESN'T ALWAYS FINISH FULL 8OZ) NOTED LOW YULY AND COCCYX RED CONTINUE TO MONITOR PO INTAKE CLOSELY
--- NOTE | 2022-07-24 14:58 | PC.NURSE ---
this nurse empties pt's colostomy bag around 8am this morning. output of 600ml ; brown, liquid. this nurse empties pt's colostomy @10:41am; output of 400ml, brown liquid. amodium given with good affect. when rechecking pt's has less liquid output, alittle more formed but still pretty loose and liquidy.
[2022-07-24] MEDS: oxyCODONE HCl Immed Release 5 MG TABLET PO (16:01)
--- NOTE | 2022-07-24 17:00 | PM.GIPN ---
Subjective Subjective Date of Service: 07/24/22 Interval History: c/o some abd discomfort Critical Care Time (minutes): 0 Physical Exam Vital Signs: Vital Signs: Last Vital Signs Temp 98.4 F 07/24/22 15:51 Pulse 100 07/24/22 15:51 Resp 18 07/24/22 15:51 BP 110/55 L 07/24/22 15:51 Pulse Ox 98 07/24/22 15:51 O2 Del Method 07/24/22 15:51 O2 Flow Rate 1 07/24/22 15:51 FiO2 98 07/21/22 19:39 Oxygen Flow Rate 35 06/13/22 21:00 BMI result Body Mass Index 30.8 GI: Other: abdomen is soft Objective Data Labs CBC & Chem 7: 07/24/22 05:57 07/24/22 05:57 Procedures Date of Service Date of Service: 07/24/22 Arterial Line Size (Gauge): 16 Progress Note: A&P Assessment and plan (1) Megacolon, toxic: Status: Acute Assessment and Plan: slow progress continue supportive care Time Spent With Patient Time: Total time spent is greater than 50% in coordination of care (as documented) at patient's floor/unit and/or counseling patient: Quality Stroke Does the patient have a stroke diagnosis?: No VTE Prior VTE?: No VTE Risk Level:: Medical - moderate - high VTE Device Contraindication: N/A - Device Ordered VTE Drug Contraindication: N/A - Med Ordered
--- NOTE | 2022-07-24 17:27 | MHC.SLORD ---
Speech Language Pathology Order Status: Attempted to see patient for PO trials this p.m. Pt with c/o pain, did not want to eat/drink. Patient reports that she has been able to select food she wants to eat with current diet consistency, has been eating small amounts at meals. PACKAGING DESIGNER will continue to follow.
[2022-07-24] MEDS: Loperamide HCl 2 MG CAPSULE PO ×2 (17:28→21:45)
--- NOTE | 2022-07-24 19:41 | PC.NURSE ---
in regards to pt and being upset about no one has been here all day to check in on her, no one has come in to empty her bag and change her dressing all day this nurse would like to elaborate. this nurse went and saw pt to give AM meds between 7:30 and 8am. this nurse asked how pt's night was, if she slept ok and if shes having any pain. pt expressed she would like her PRN pain medication and her ostomy to be emptied - this nurse did as pt requested. ostomy put out 600ml brown liquid stool. at 10:41 this nurse empties pt's ostomy bag for 400ml brown liquid stool. was present when this nurse emptied ostomy bag at 10:41. imodium was ordered and given to treat the large amount of liquid stool in ostomy bag - this nurse stated oh it looks like the medication worked because there's not much output and not much to empy as this time - stool was more formed but still soft. at this time both pt and was given education about PRN medication. teaching as followed so has put in PRN oxy as well for pain manangement. I think we should trial with PO oxy the next time you feel like you need pain medication due to the fact that when you leave the hospital you will have the IV taken out and will not be receiving IV pain meds, this way we can slowly ween you off IV pain medication and manage your pain with pill form pain medication. both an pt understood the teaching and agreed with plan. however the next time this nurse went into the room both pt and is upset because you said you were going to come back in 2hrs with the pain medication. which this nurse replied with no that is not what I said, I said the time written on the board in the earliest pt can receive next dose of IV dilaudid but remember we agreed to try the oxy . in regards to pt's abd dressing- it was changed earlier this morning (after this nurse noticed some drainage on bandage upon assessing site and ostomy bag) by another RN after this nurse reached out for help due to the heavy pt assignment this nurse was not able to get to it at an appropriate time.
[2022-07-24 21:19] LABS: Glucose, Whole Blood 148 mg/dL (60-115)
[2022-07-24] MEDS: HYDROmorphone HCl 1 MG/ML SYRINGE 0.5 MG IVPUSH ×2 (21:40→22:40)
[2022-07-24] MEDS: DULoxetine HCl 30 MG CAPSULE.DR PO (21:44)
[2022-07-25] MEDS: 0.9 % Sodium Chloride Flush 3 ML SYRINGE IVFLUSH ×4 (00:07→22:22)
[2022-07-25] MEDS: Metoprolol Tartrate 25 MG TABLET 75 MG PO ×3 (01:03→15:25)
[2022-07-25 03:54] VITALS: BP 142/68; PULSE 81; RESP 15; TEMP 36.9; O2SAT 98
[2022-07-25] MEDS: HYDROmorphone HCl 1 MG/ML SYRINGE 0.5 MG IVPUSH ×4 (04:50→22:22)
[2022-07-25] MEDS: Loperamide HCl 2 MG CAPSULE PO ×4 (04:51→22:22)
[2022-07-25 07:26] VITALS: BP 135/72; PULSE 85; RESP 18; TEMP 36.3; O2SAT 98
--- NOTE | 2022-07-25 07:54 | P.PNGS_ITS ---
Subjective Subjective Date of Service: 07/26/22 Interval history: says she is ok stoma functioning Physical Exam Vital Signs: Vital Signs: Last Vital Signs Temp 97.3 F 07/25/22 07:26 Pulse 85 07/25/22 07:26 Resp 18 07/25/22 07:26 BP 135/72 07/25/22 07:26 Pulse Ox 98 07/25/22 07:26 O2 Del Method 07/25/22 07:26 O2 Flow Rate 2 07/25/22 07:26 FiO2 98 07/21/22 19:39 Oxygen Flow Rate 35 06/13/22 21:00 BMI result Body Mass Index 30.8 Const: Other: some SOB as baseline General: comfortable Resp: Other: some SOB as baseline Cardio: Rate: regular rate GI: Other: soft, stoma with output, incision clean, with scanty serosanguinous drainage Objective Data Active Medications Heparin Sodium (Porcine) 50 (units/ Sodium Chloride 5 ml) 0 units IVFLUSH TID [facility] Last Admin: 07/24/22 21:43 Dose: 50 unit Documented By: NA Duloxetine HCl (Duloxetine Hcl 30 Mg Capsule.Dr) 30 mg PO DAILY [facility] Last Admin: 07/24/22 21:44 Dose: 30 mg Documented By: NA Enoxaparin Sodium (Enoxaparin Sodium 40 Mg/0.4 Ml Syringe) 40 mg SUBCUT Q24H [facility] Last Admin: 07/23/22 07:38 Dose: 40 mg Documented By: GRISELDA Hydromorphone HCl (Hydromorphone Hcl 1 Mg/Ml Syringe) 0.5 mg IVPUSH Q2H PRN; Protocol PRN Reason: Pain, Severe (Pain Scale 7-10) Last Admin: 07/25/22 04:50 Dose: 0.5 mg Documented By: NA Lidocaine (Lidocaine 4 % Patch Adh..Patch) 1 patch TRANSDERMA DAILY [facility]; Protocol Last Admin: 07/24/22 16:02 Dose: 1 patch Documented By: GRISELDA Loperamide HCl (Loperamide Hcl 2 Mg Capsule) 2 mg PO Q6H [facility] Last Admin: 07/25/22 04:51 Dose: 2 mg Documented By: NA Metoprolol Tartrate (Metoprolol Tartrate 25 Mg Tablet) 75 mg PO Q8H [facility]; Protocol Last Admin: 07/25/22 01:03 Dose: 75 mg Documented By: NA Patient Own Med ( (Ajovy 1.5 Ml)) 1.5 ml SUBCUT Q30D [facility] Last Admin: 06/30/22 13:56 Dose: 1.5 ml Documented By: LAKESHIA Nystatin (Nystatin Powder 15 Gm Bottle) 1 appl TOPICAL BID [facility]; Protocol Last Admin: 07/24/22 21:45 Dose: 1 appl Documented By: NA Oxycodone HCl (Oxycodone Hcl Immed Release 5 Mg Tablet) 5 mg PO Q4H PRN PRN Reason: Pain, Moderate (Pain Scale 4-6 Last Admin: 07/24/22 16:01 Dose: 5 mg Documented By: GRISELDA Pharmacy Consult (Consult Rx Perform Med Rec) 1 each MISCELLANE ONCE PRN PRN Reason: Consult order Potassium Chloride (Potassium Chloride Packet 20 Meq Packet) 20 meq PO DAILY [facility] Last Admin: 07/24/22 07:54 Dose: 20 meq Documented By: GRISELDA Sodium Chloride (0.9 % Sodium Chloride Flush 3 Ml Syringe) 3 ml IVFLUSH QSHIFT [facility] Last Admin: 07/25/22 00:07 Dose: 3 ml Documented By: NA Sumatriptan Succinate (Sumatriptan Succinate 6 Mg/0.5 Ml Vial) 6 mg SUBCUT DAILY PRN PRN Reason: migraine headache Last Admin: 07/11/22 16:21 Dose: 6 mg Documented By: SANTOS Labs CBC & Chem 7: 07/24/22 05:57 07/24/22 05:57 Labs: Laboratory Results - last 24 hr 07/24/22 21:12 POC Glucose 148 H Procedures Date of Service Date of Service: 07/25/22 Arterial Line Size (Gauge): 16 Progress Note: A&P Assessment and plan (1) S/P colectomy: Status: Acute Assessment and Plan: push PO intake monitor stoma output - may have episodes of dehydration if with high output ileostomy start PT/ is OT improving overall family updated Time Spent With Patient Time: Total time spent is greater than 50% in coordination of care (as documented) at patient's floor/unit and/or counseling patient: Quality Stroke Does the patient have a stroke diagnosis?: No VTE Prior VTE?: No VTE Risk Level:: Medical - moderate - high VTE Device Contraindication: N/A - Device Ordered VTE Drug Contraindication: N/A - Med Ordered
[2022-07-25] MEDS: Heparin Sodium,Porcine Flush 50 UNITS, 0.9 % Sodium Chloride Flush 5 ML IVFLUSH ×3 (08:29→22:21)
[2022-07-25] MEDS: Potassium Chloride Packet 20 MEQ PACKET PO (08:29)
[2022-07-25] MEDS: Lidocaine 4 % Patch ADH..PATCH 1 PATCH TRANSDERMA (08:30)
[2022-07-25] MEDS: DULoxetine HCl 30 MG CAPSULE.DR PO (08:30)
[2022-07-25] MEDS: Nystatin Powder 15 GM BOTTLE 1 APPL TOPICAL ×2 (08:32→22:20)
[2022-07-25 10:59] VITALS: BP 130/68; PULSE 80; RESP 17; TEMP 36.6; O2SAT 98
--- NOTE | 2022-07-25 15:12 | HO.PM.IMPN ---
Subjective Subjective Date of Service: 07/25/22 Interval History: Feeling better than yesterday complaining of difficulty reading telephone messages, denies headache, lightheadedness, dizziness, no overnight events oxygenation remains stable, no nausea no vomiting tolerating diet good pain control. Review of Systems CVS no chest pain no palpitation Respiratory no cough, no shortness of breath Review of Systems: Yes all other systems are reviewed and are negative Physical Exam Vital Signs: Vital Signs: Last Vital Signs Temp 97.8 F 07/25/22 10:59 Pulse 80 07/25/22 10:59 Resp 17 07/25/22 10:59 BP 130/68 07/25/22 10:59 Pulse Ox 98 07/25/22 10:59 O2 Del Method 07/25/22 10:59 O2 Flow Rate 2 07/25/22 10:59 FiO2 98 07/21/22 19:39 Oxygen Flow Rate 35 06/13/22 21:00 BMI result Body Mass Index 30.8 Const: Other: Gen:? Awake alert, no distress Neck: supple, no JVD Lungs: clear to auscultation bilaterally Heart: regular, tachycardic, no murmurs Abd: soft, stoma with liquidy stool , tenderness to palpation, dressing to mid abdomen, no drainage, bowel sounds audible, left sided drains with small drainage Ext:? Edema significantly improved from before,mild swelling dorsum of feet right greater than left Skin: warm/well-perfused Neuro: alert and oriented x3, no focal findings Psych: appropriate affect Marie catheter in place Objective Data Active Medications Heparin Sodium (Porcine) 50 (units/ Sodium Chloride 5 ml) 0 units IVFLUSH TID [facility] Last Admin: 07/25/22 08:29 Dose: 50 unit Documented By: ASHLEY Duloxetine HCl (Duloxetine Hcl 30 Mg Capsule.Dr) 30 mg PO DAILY [facility] Last Admin: 07/25/22 08:30 Dose: 30 mg Documented By: ASHLEY Enoxaparin Sodium (Enoxaparin Sodium 40 Mg/0.4 Ml Syringe) 40 mg SUBCUT Q24H [facility] Last Admin: 07/23/22 07:38 Dose: 40 mg Documented By: GRISELDA Hydromorphone HCl (Hydromorphone Hcl 1 Mg/Ml Syringe) 0.5 mg IVPUSH Q4H PRN; Protocol PRN Reason: Pain, Severe (Pain Scale 7-10) Lidocaine (Lidocaine 4 % Patch Adh..Patch) 1 patch TRANSDERMA DAILY [facility]; Protocol Last Admin: 07/25/22 08:30 Dose: 1 patch Documented By: ASHLEY Loperamide HCl (Loperamide Hcl 2 Mg Capsule) 2 mg PO Q6H [facility] Last Admin: 07/25/22 11:09 Dose: 2 mg Documented By: ASHLEY Metoprolol Tartrate (Metoprolol Tartrate 25 Mg Tablet) 75 mg PO Q8H [facility]; Protocol Last Admin: 07/25/22 08:30 Dose: 75 mg Documented By: ASHLEY Patient Own Med ( (Ajovy 1.5 Ml)) 1.5 ml SUBCUT Q30D [facility] Last Admin: 06/30/22 13:56 Dose: 1.5 ml Documented By: LAKESHIA Nystatin (Nystatin Powder 15 Gm Bottle) 1 appl TOPICAL BID [facility]; Protocol Last Admin: 07/25/22 08:32 Dose: 1 appl Documented By: ASHLEY Oxycodone HCl (Oxycodone Hcl Immed Release 5 Mg Tablet) 5 mg PO Q4H PRN PRN Reason: Pain, Moderate (Pain Scale 4-6 Last Admin: 07/24/22 16:01 Dose: 5 mg Documented By: GRISELDA Pharmacy Consult (Consult Rx Perform Med Rec) 1 each MISCELLANE ONCE PRN PRN Reason: Consult order Potassium Chloride (Potassium Chloride Packet 20 Meq Packet) 20 meq PO DAILY [facility] Last Admin: 07/25/22 08:29 Dose: 20 meq Documented By: ASHLEY Sodium Chloride (0.9 % Sodium Chloride Flush 3 Ml Syringe) 3 ml IVFLUSH QSHIFT [facility] Last Admin: 07/25/22 08:31 Dose: 3 ml Documented By: ASHLEY Sumatriptan Succinate (Sumatriptan Succinate 6 Mg/0.5 Ml Vial) 6 mg SUBCUT DAILY PRN PRN Reason: migraine headache Last Admin: 07/11/22 16:21 Dose: 6 mg Documented By: SANTOS Labs CBC & Chem 7: 07/24/22 05:57 07/24/22 05:57 Labs: Laboratory Results - last 24 hr 07/24/22 21:12 POC Glucose 148 H Assessment and Plan (1) S/P colectomy: Status: Acute (2) Megacolon, toxic: Status: Acute (3) Hemorrhagic shock: Status: Acute (4) Tachycardia: Status: Acute (5) Crohn's disease: Status: Acute (6) Status post colostomy: Status: Acute Plan 62-year-old female who was initially admitted to the hospital on 05/18 22 with colitis/ Crohn's flare, she had a flex sig showed perforation with abscesses, taken to OR for ex lap with colostomy after found to have extensive fecal soilage in peritoneum, she was severely septic, she was sent to the ICU and intubated, course and was complicated by multiple intra-abdominal abscesses causing fevers with multiple drains placed by IR. She was then transitioned to 2 fees and then to oral diet. Currently on oral diet. On Jul 13 pt taken to the OR for E-lap and 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 The procedure was extremely difficult and prolonged 2? adhesions, and was complicated by multiple enterotomies which were primarily closed.? She developed progressive septic shock during the procedure, complicated by marked hypovolemia and coagulopathy.? EBL was 2000cc.? She was given multiple units of blood, FFP, and cryo. Postoperatively, she was transferred to the ICU.? Postop echo but Dr. Pinedo still showed hyperdynamic LV function with no significant RV dysfunction.? She was put on linezolid Levaquin and Flagyl.? She was given two more units of blood on Jul 14. patient was extubated Jul 16 without incident.?patient subsequently transferred to intermediate care unit on 07/20. #Toxic megacolon underwent difficult re-exploration and colectomy 07/13, - stoma functioning well , liquidy stools, - Tolerating oral intake,chopped diet and thin liquids being followed by speech therapist, continue supplements. - Patient on IV Dilaudid 0.5 mg q.2 hours, will change to q.4 hours, continue by mouth oxycodone and Lidoderm patch Resume Cymbalta and Protonix # Bright red blood per rectum resolved hematocrit remains stable likely from residual retained stools in the rectosigmoid #Gross anasarca - improved, s/p Lasix # Hypokalemia resolved - likely due to Lasix and high stoma output , continue potassium supplement low-dose and follow labs # Tachycardia - improved on metoprolol 75 mg t.i.d. follow BP and pulse closely continue tele monitor, BP stable # ICU myopathy - PT OT, plan for rehab #C diff colitis finished course of Flagyl, WBC improved to 11.6 #Status post septic shock secondary to perforated viscus with fecal peritonitis and fungal peritonitis, finish course of voriconazole on 07/23 # difficulty reading small print, normal eye examination, recommend outpatient follow-up with senior sales representative, patient was able to read small print at present will continue to follow Resolved issues SABINE resolved Toxic metabolic encephalopathy resolved Hypophosphatemia/hypomagnesemia resolved Left upper extremity catheter associated DVT proximal left brachial vein diagnosed on 06/27, midline catheter was removed patient treated with Lovenox subQ b.i.d. subsequently discontinued DVT prophylaxis with Lovenox Patient requires continued inpatient hospitalization due to being on IV Dilaudid for pain control, will gradually wean dilaudid and plan for rehab Quality Stroke Does the patient have a stroke diagnosis?: No VTE Prior VTE?: No VTE Risk Level:: Medical - moderate - high VTE Device Contraindication: N/A - Device Ordered VTE Drug Contraindication: N/A - Med Ordered
[2022-07-25 15:49] VITALS: BP 136/67; PULSE 86; RESP 18; TEMP 36.3; O2SAT 98
--- NOTE | 2022-07-25 18:21 | MHC.SL.SWA ---
Speech Pathologist Impression: Risk of Aspiration Due to: Hx of Recent Extubation Dysphasia Diet Status: Recommend UPGRADE diet to REGULAR with thin liquids. Encourage patient to select foods that she feels motivated to eat and comfortable with textures and amounts. Liquid Consistency and Strategies for Safe Swallow: Liquid Intake Recommendation: Thin Liquid Intake Strategies: Small Sips Solid Food Consistency: Dietary Recommendations: Regular Additional Modifications to Solid Foods: Encourage patient to select foods that she feels motivated to eat and comfortable with textures and amounts. Oral Medication Intake: Whole with Puree Please contact the pharmacy regarding appropriate crushable or liquid drug formulations that are available whenever modified delivery is recommended. Compensatory Strategies and Precautions to be Taken for Safe Swallow: Sitting Upright (90 deg) Liquids from Cup Liquids from Straw Small Bites and Sips Alternate Liquids/Solids Supervision While Eating and Drinking for Safe Swallow: Intermittent Supervision Foods to Avoid: Difficult to chew solids. Swallowing Recommended Treatments: Compens. Strategy Educat. Recommendation for Speech: Inpatient Speech Therapy Comment: Patient was seen at lunch, had ordered a burger which had come chopped and without a bun. Patient tried some of the meal, but stated that she found it disgusting and was note motivated to eat. Previous trials have demonstrated that patient is able to eat breads, mixed consistencies, which are not provided in current diet of Chopped/Advanced as delivered from meat [employer] associate (food looks more like GROUND diet). Patient has demonstrated good insight regarding food selection, needs food that she feels motivated to eat. Recommend advance diet to REGULAR consistency to provide wider range of foods for patient to select. Encourage patient to select foods that she feels motivated to eat and comfortable with textures and amounts. MD/RD texted with updated recommendation, FOREST FIRE CONTROL OFFICER changed diet order in chart. Frequency/Duration: M-F while inpatient. Date Range for Service Req: Timeline to reassess: Pastry Supervisor Clinican/Clinical Fellow: No Supervisory Statement: I have reviewed and agree with the student/clinical fellow's documentation: N/A Speech Language Pathologist: Evette Talbert M.A., CCC-FOREST FIRE CONTROL OFFICER
[2022-07-25 19:37] VITALS: BP 132/64; PULSE 91; RESP 18; TEMP 36.4; O2SAT 98
[2022-07-25 23:30] VITALS: BP 150/71; PULSE 90; RESP 16; TEMP 36.3; O2SAT 100
[2022-07-26] MEDS: Metoprolol Tartrate 25 MG TABLET 75 MG PO ×2 (00:36→08:33)
[2022-07-26] MEDS: oxyCODONE HCl Immed Release 5 MG TABLET PO ×3 (00:39→12:32)
[2022-07-26 03:01] VITALS: BP 125/64; PULSE 86; RESP 16; TEMP 36.8; O2SAT 95
[2022-07-26] MEDS: HYDROmorphone HCl 1 MG/ML SYRINGE 0.5 MG IVPUSH ×2 (03:53→08:34)
[2022-07-26] MEDS: Loperamide HCl 2 MG CAPSULE PO ×4 (04:28→23:56)
[2022-07-26] MEDS: ondansetron HCL 4 MG/2 ML VIAL IVPUSH ×3 (04:28→23:56)
[2022-07-26 07:54] VITALS: BP 141/67; PULSE 92; RESP 20; TEMP 36.5; O2SAT 98
[2022-07-26] MEDS: Lidocaine 4 % Patch ADH..PATCH 1 PATCH TRANSDERMA (08:32)
[2022-07-26] MEDS: DULoxetine HCl 30 MG CAPSULE.DR PO (08:33)
[2022-07-26] MEDS: Potassium Chloride Packet 20 MEQ PACKET PO (08:33)
[2022-07-26] MEDS: Heparin Sodium,Porcine Flush 50 UNITS, 0.9 % Sodium Chloride Flush 5 ML IVFLUSH ×3 (08:33→20:45)
[2022-07-26] MEDS: 0.9 % Sodium Chloride Flush 3 ML SYRINGE IVFLUSH ×3 (08:33→20:46)
[2022-07-26] MEDS: Nystatin Powder 15 GM BOTTLE 1 APPL TOPICAL ×2 (08:48→20:46)
--- NOTE | 2022-07-26 10:01 | PM.PNGS ---
Subjective Subjective Date of Service: 07/28/22 Interval history: Says she has been having nausea Therefore not taking much by mouth Stoma with liquid output Physical Exam Vital Signs: Vital Signs: Last Vital Signs Temp 97.7 F 07/26/22 07:54 Pulse 92 07/26/22 07:54 Resp 20 07/26/22 07:54 BP 141/67 H 07/26/22 07:54 Pulse Ox 98 07/26/22 07:54 O2 Del Method 07/26/22 07:54 O2 Flow Rate 1.5 07/26/22 07:54 FiO2 98 07/21/22 19:39 Oxygen Flow Rate 35 06/13/22 21:00 BMI result Body Mass Index 30.8 Const: Other: Some shortness of breath as baseline Resp: Other: Some shortness of breath is baseline Cardio: Rate: regular rate GI: Other: Stoma with liquid output Palpation (GI): Soft to palpation Objective Data Active Medications Heparin Sodium (Porcine) 50 (units/ Sodium Chloride 5 ml) 0 units IVFLUSH TID [facility] Last Admin: 07/26/22 08:33 Dose: 50 unit Documented By: ASHLEY Duloxetine HCl (Duloxetine Hcl 30 Mg Capsule.Dr) 30 mg PO DAILY [facility] Last Admin: 07/26/22 08:33 Dose: 30 mg Documented By: ASHLEY Enoxaparin Sodium (Enoxaparin Sodium 40 Mg/0.4 Ml Syringe) 40 mg SUBCUT Q24H [facility] Last Admin: 07/23/22 07:38 Dose: 40 mg Documented By: GRISELDA Hydromorphone HCl (Hydromorphone Hcl 1 Mg/Ml Syringe) 0.5 mg IVPUSH Q4H PRN; Protocol PRN Reason: Pain, Severe (Pain Scale 7-10) Last Admin: 07/26/22 08:34 Dose: 0.5 mg Documented By: ASHLEY Lidocaine (Lidocaine 4 % Patch Adh..Patch) 1 patch TRANSDERMA DAILY [facility]; Protocol Last Admin: 07/26/22 08:32 Dose: 1 patch Documented By: ASHLEY Loperamide HCl (Loperamide Hcl 2 Mg Capsule) 2 mg PO Q6H [facility] Last Admin: 07/26/22 04:28 Dose: 2 mg Documented By: ISAIAH Metoprolol Tartrate (Metoprolol Tartrate 25 Mg Tablet) 75 mg PO Q8H [facility]; Protocol Last Admin: 07/26/22 08:33 Dose: 75 mg Documented By: ASHLEY Patient Own Med ( (Ajovy 1.5 Ml)) 1.5 ml SUBCUT Q30D [facility] Last Admin: 06/30/22 13:56 Dose: 1.5 ml Documented By: LAKESHIA Pt Own (Pantoprazole [Protonix] 40 Mg Tablet,Delayed Release (Dr/Ec)) 40 mg PO BEDTIME [facility] Last Admin: 07/25/22 22:20 Dose: 40 mg Documented By: MARYLOU Nystatin (Nystatin Powder 15 Gm Bottle) 1 appl TOPICAL BID [facility]; Protocol Last Admin: 07/26/22 08:48 Dose: 1 appl Documented By: ASHLEY Ondansetron HCl (Ondansetron Hcl 4 Mg/2 Ml Vial) 4 mg IVPUSH Q8H PRN PRN Reason: Nausea and Vomiting Last Admin: 07/26/22 04:28 Dose: 4 mg Documented By: ISAIAH Oxycodone HCl (Oxycodone Hcl Immed Release 5 Mg Tablet) 5 mg PO Q4H PRN PRN Reason: Pain, Moderate (Pain Scale 4-6 Last Admin: 07/26/22 04:27 Dose: 5 mg Documented By: ISAIAH Pharmacy Consult (Consult Rx Perform Med Rec) 1 each MISCELLANE ONCE PRN PRN Reason: Consult order Potassium Chloride (Potassium Chloride Packet 20 Meq Packet) 20 meq PO DAILY [facility] Last Admin: 07/26/22 08:33 Dose: 20 meq Documented By: ASHLEY Sodium Chloride (0.9 % Sodium Chloride Flush 3 Ml Syringe) 3 ml IVFLUSH QSHIFT [facility] Last Admin: 07/26/22 08:33 Dose: 3 ml Documented By: ASHLEY Sumatriptan Succinate (Sumatriptan Succinate 6 Mg/0.5 Ml Vial) 6 mg SUBCUT DAILY PRN PRN Reason: migraine headache Last Admin: 07/11/22 16:21 Dose: 6 mg Documented By: SANTOS Labs CBC & Chem 7: 07/24/22 05:57 07/24/22 05:57 Procedures Date of Service Date of Service: 07/26/22 Arterial Line Size (Gauge): 16 Progress Note: A&P Assessment and plan (1) S/P colectomy: Status: Acute Assessment and Plan: Having some nausea Told her to down on oral intake and may take only sips of clears for today until nausea resolves With therefore her supplemental IV fluids for now Abdomen benign otherwise I plan to remove the last drain later today Time Spent With Patient Time: Total time spent is greater than 50% in coordination of care (as documented) at patient's floor/unit and/or counseling patient: Quality Stroke Does the patient have a stroke diagnosis?: No VTE Prior VTE?: No VTE Risk Level:: Medical - moderate - high VTE Device Contraindication: N/A - Device Ordered VTE Drug Contraindication: N/A - Med Ordered
--- NOTE | 2022-07-26 10:29 | MHC.SL.SWA ---
Speech Pathologist Impression: Risk of Aspiration Due to: Hx of Recent Extubation Dysphasia Diet Status: Continue on REGULAR with thin liquids. Encourage patient to select foods that she feels motivated to eat and comfortable with textures and amounts. Liquid Consistency and Strategies for Safe Swallow: Liquid Intake Recommendation: Thin Liquid Intake Strategies: Small Sips Solid Food Consistency: Dietary Recommendations: Regular Additional Modifications to Solid Foods: Encourage patient to select foods that she feels motivated to eat and comfortable with textures and amounts. Oral Medication Intake: Whole with Puree Please contact the pharmacy regarding appropriate crushable or liquid drug formulations that are available whenever modified delivery is recommended. Compensatory Strategies and Precautions to be Taken for Safe Swallow: Sitting Upright (90 deg) Liquids from Cup Liquids from Straw Small Bites and Sips Alternate Liquids/Solids Supervision While Eating and Drinking for Safe Swallow: Intermittent Supervision Foods to Avoid: Difficult to chew solids. Swallowing Recommended Treatments: Compens. Strategy Educat. Recommendation for Speech: Inpatient Speech Therapy Comment: Patient was seen at breakfast, had ordered small amount: Yogurt, chopped peaches, juice and eaten only a small amount of yogurt and some of the juice, reported not having much of an appetite. Diet receipt indicated regular diet reflecting upgrade. Patient c/o uncomfortable in bed, has pain in lower back. Pt also appearing anxious, reported that MD was recommending dc to STR. Discussed with patient that given she is on least restrictive diet, LUMBER CARRIER OPERATOR services would be D/C'd. Patient agreed with recommendation, LUMBER CARRIER OPERATOR went to get LINER MACHINE OPERATOR to assist with repositioning patient for comfort. Recommend patient continues on REGULAR diet with THIN liquids, Pills administered with liquid or puree, as preferred by patient. LUMBER CARRIER OPERATOR will discharge at this time, please re-consult if any other concerns arise. Frequency/Duration: Date Range for Service Req: Timeline to reassess: Cashier Assistant Clinican/Clinical Fellow: No Supervisory Statement: I have reviewed and agree with the student/clinical fellow's documentation: N/A Speech Language Pathologist: Evette Talbert M.A., CCC-LUMBER CARRIER OPERATOR
[2022-07-26 11:17] VITALS: BP 168/82; PULSE 86; RESP 20; TEMP 36.4; O2SAT 98
--- NOTE | 2022-07-26 13:41 | MHC.CLN ---
F/U PO INTAKE 25% PT C/O NAUSEA WITH POOR PO INTAKE AND APPEARED LETHARGIC UPON INTERVIEW DIET RX: REGULAR-APPROPRIATE REPORTS POOR PO DAY 4. PT IS DRINKING LACTAID MILK AND TAKING ONLY FEW BITES FROM [employer] UPON INTERVIEW PT RECEIVING ENSURE TID TO PROVIDE 1050KCALS, 60G PROTEIN PT SIPS SUPP THROUGHOUT THE DAY-CURRENTLY NOT DRINKING SUPPLEMENT CONTINUE TO MONITOR PO INTAKE CLOSELY CONSULT RD IF PPN NEEDED
[2022-07-26] MEDS: Acetaminophen 325 MG TABLET 650 MG PO ×2 (14:37→20:44)
--- NOTE | 2022-07-26 14:47 | HO.PM.IMPN ---
Subjective Subjective Date of Service: 07/26/22 Interval History: complaining of nausea, ostomy with liquidy school but less volume, left abdominal drainage tube removed this morning, patient participated with physical therapy this morning, good pain control. 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 Awake alert, no distress Neck: supple, no JVD Soo ngs: clear to ausc ultation bilateral ly Heart: regular, tachycardic, no m urmurs Abd: soft, stoma with liquidy stool , tendernes s to palpation, dr tavera to mid abdo men, no drainage, bowel sounds audib le Ext:? Edema re solved,mild swelli ng dorsum of feet right greater than left Skin: warm/w ell-perfused Neuro : alert and orient ed x3, no focal fi ndings Psych: appr opriate affect Fol ey catheter in kaylen ce Objective Data Active Medications Acetaminophen (Acetaminophen 325 Mg Tablet) 650 mg PO TID [facility] Last Admin: 07/26/22 14:37 Dose: 650 mg Documented By: ASHLEY Heparin Sodium (Porcine) 50 (units/ Sodium Chloride 5 ml) 0 units IVFLUSH TID [facility] Last Admin: 07/26/22 14:38 Dose: 50 unit Documented By: ASHLEY Duloxetine HCl (Duloxetine Hcl 30 Mg Capsule.) 30 mg PO DAILY [facility] Last Admin: 07/26/22 08:33 Dose: 30 mg Documented By: ASHLEY Enoxaparin Sodium (Enoxaparin Sodium 40 Mg/0.4 Ml Syringe) 40 mg SUBCUT Q24H [facility] Last Admin: 07/23/22 07:38 Dose: 40 mg Documented By: GRISELDA Lidocaine (Lidocaine 4 % Patch Adh..Patch) 1 patch TRANSDERMA DAILY [facility]; Protocol Last Admin: 07/26/22 08:32 Dose: 1 patch Documented By: ASHLEY Loperamide HCl (Loperamide Hcl 2 Mg Capsule) 2 mg PO Q6H [facility] Last Admin: 07/26/22 12:32 Dose: 2 mg Documented By: ASHLEY Metoprolol Tartrate (Metoprolol Tartrate 50 Mg Tablet) 50 mg PO Q8H [facility]; Protocol Last Admin: 07/26/22 11:44 Dose: Not Given Documented By: ASHLEY Non-Admin Reason: Gave previous dose of 75mg at 8am Patient Own Med ( (Ajovy 1.5 Ml)) 1.5 ml SUBCUT Q30D [facility] Last Admin: 06/30/22 13:56 Dose: 1.5 ml Documented By: LAKESHIA Pt Own (Pantoprazole [Protonix] 40 Mg Tablet,Delayed Release (Dr/Ec)) 40 mg PO BEDTIME [facility] Last Admin: 07/25/22 22:20 Dose: 40 mg Documented By: MARYLOU Nystatin (Nystatin Powder 15 Gm Bottle) 1 appl TOPICAL BID [facility]; Protocol Last Admin: 07/26/22 08:48 Dose: 1 appl Documented By: ASHLEY Ondansetron HCl (Ondansetron Hcl 4 Mg/2 Ml Vial) 4 mg IVPUSH Q8H PRN PRN Reason: Nausea and Vomiting Last Admin: 07/26/22 12:32 Dose: 4 mg Documented By: ASHLEY Oxycodone HCl (Oxycodone Hcl Immed Release 5 Mg Tablet) 5 mg PO Q4H PRN PRN Reason: Pain, Moderate (Pain Scale 4-6 Last Admin: 07/26/22 12:32 Dose: 5 mg Documented By: ASHLEY Pharmacy Consult (Consult Rx Perform Med Rec) 1 each MISCELLANE ONCE PRN PRN Reason: Consult order Sodium Chloride (0.9 % Sodium Chloride Flush 3 Ml Syringe) 3 ml IVFLUSH QSHIFT [facility] Last Admin: 07/26/22 08:33 Dose: 3 ml Documented By: ASHLEY Sumatriptan Succinate (Sumatriptan Succinate 6 Mg/0.5 Ml Vial) 6 mg SUBCUT DAILY PRN PRN Reason: migraine headache Last Admin: 07/11/22 16:21 Dose: 6 mg Documented By: SANTOS Labs CBC & Chem 7: 07/24/22 05:57 07/24/22 05:57 Assessment and Plan (1) S/P colectomy: Status: Acute (2) Megacolon, toxic: Status: Acute (3) Hemorrhagic shock: Status: Acute (4) Tachycardia: Status: Acute (5) Crohn's disease: Status: Acute (6) Status post colostomy: Status: Acute Plan 62-year-old female who was initially admitted to the hospital on 05/18 22 with colitis/ Crohn's flare, she had a flex sig showed perforation with abscesses, taken to OR for ex lap with colostomy after found to have extensive fecal soilage in peritoneum, she was severely septic, she was sent to the ICU and intubated, course and was complicated by multiple intra-abdominal abscesses causing fevers with multiple drains placed by IR. She was then transitioned to 2 fees and then to oral diet. Currently on oral diet. On Jul 13 pt taken to the OR for E-lap and 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 The procedure was extremely difficult and prolonged 2? adhesions, and was complicated by multiple enterotomies which were primarily closed.? She developed progressive septic shock during the procedure, complicated by marked hypovolemia and coagulopathy.? EBL was 2000cc.? She was given multiple units of blood, FFP, and cryo. Postoperatively, she was transferred to the ICU.? Postop echo but Dr. Pinedo still showed hyperdynamic LV function with no significant RV dysfunction.? She was put on linezolid Levaquin and Flagyl.? She was given two more units of blood on Jul 14. patient was extubated Jul 16 without incident.?patient subsequently transferred to intermediate care unit on 07/20. #Toxic megacolon underwent difficult re-exploration and colectomy 07/13, - stoma functioning well , liquidy stools, - Tolerating oral intake, diet advanced to regular, continue supplements. - will discontinue IV Dilaudid , continue by mouth oxycodone, add scheduled Tylenol and continue Lidoderm patch continue Cymbalta and Protonix DC Marie catheter wean oxygen encourage incentive spirometry # Bright red blood per rectum resolved hematocrit remains stable likely from residual retained stools in the rectosigmoid #Gross anasarca improved, s/p Lasix # Hypokalemia resolved DC potassium replacement # Tachycardia - improved on metoprolol 75 mg t.i.d. will reduce dose to 50 mg t.i.d.follow BP and pulse closely continue tele monitor, BP stable # ICU myopathy continue okay PT OT, plan for rehab #C diff colitis finished course of Flagyl, WBC improved to 11.6 #Status post septic shock secondary to perforated viscus with fecal peritonitis and fungal peritonitis, finish course of voriconazole on 07/23 # difficulty reading small print, normal eye examination, recommend outpatient follow-up with superintendent local # nausea likely due to narcotics will DC Dilaudid wean narcotics recommend out of bed to chair Resolved issues SABINE resolved Toxic metabolic encephalopathy resolved Hypophosphatemia/hypomagnesemia resolved Left upper extremity catheter associated DVT proximal left brachial vein diagnosed on 06/27, midline catheter was removed patient treated with Lovenox subQ b.i.d. subsequently discontinued DVT prophylaxis with Lovenox Patient requires continued inpatient hospitalization due to being on IV Dilaudid for pain control, will gradually wean dilaudid and plan for rehab Quality Stroke Does the patient have a stroke diagnosis?: No VTE Prior VTE?: No VTE Risk Level:: Medical - moderate - high VTE Device Contraindication: N/A - Device Ordered VTE Drug Contraindication: N/A - Med Ordered
--- NOTE | 2022-07-26 15:25 | PM.GIPN ---
Subjective Subjective Date of Service: 07/26/22 Interval History: c/o poor appetite Critical Care Time (minutes): 0 Physical Exam Vital Signs: Vital Signs: Last Vital Signs Temp 97.6 F 07/26/22 11:17 Pulse 86 07/26/22 11:17 Resp 20 07/26/22 11:17 BP 168/82 H 07/26/22 11:17 Pulse Ox 98 07/26/22 11:17 O2 Del Method 07/26/22 11:17 O2 Flow Rate 1.5 07/26/22 11:17 FiO2 98 07/21/22 19:39 Oxygen Flow Rate 35 06/13/22 21:00 BMI result Body Mass Index 30.8 Const: Other: appears depressed GI: Other: abdomen is soft and nontender Objective Data Labs CBC & Chem 7: 07/24/22 05:57 07/24/22 05:57 Procedures Date of Service Date of Service: 07/26/22 Arterial Line Size (Gauge): 16 Progress Note: A&P Assessment and plan (1) Megacolon, toxic: Status: Acute Assessment and Plan: advised to try to increase caloric intake as possible zofran for nausea continue supportive care Time Spent With Patient Time: Total time spent is greater than 50% in coordination of care (as documented) at patient's floor/unit and/or counseling patient: Quality Stroke Does the patient have a stroke diagnosis?: No VTE Prior VTE?: No VTE Risk Level:: Medical - moderate - high VTE Device Contraindication: N/A - Device Ordered VTE Drug Contraindication: N/A - Med Ordered
[2022-07-26 15:46] VITALS: BP 150/72; PULSE 90; RESP 17; TEMP 36.1; O2SAT 96
--- NOTE | 2022-07-26 16:40 | MHC.CM.PN ---
Addendum entered by Lisseth Walden 07/26/22 16:42: Patient is transitioning to PO Pain medication. Original Note: DP STR vs Acute rehab. Patient is not ready for discharge. She continues with IV pain medication. Patient will transport via BLS.
[2022-07-26] MEDS: Metoprolol Tartrate 50 MG TABLET PO ×2 (18:04→23:56)
[2022-07-26 20:00] VITALS: BP 152/80; PULSE 93; RESP 17; TEMP 36.6; O2SAT 99
[2022-07-26 23:44] VITALS: BP 141/68; PULSE 91; RESP 18; TEMP 36.1; O2SAT 98
[2022-07-27] VITALS (8 sets, daily range): BP systolic 126–150; BP diastolic 62–78; PULSE 87–110; RESP 16–18; TEMP 35.7–37.5; O2SAT 95–99; BMI 29.0
[2022-07-27] MEDS: Loperamide HCl 2 MG CAPSULE PO ×2 (06:12→21:12)
[2022-07-27] MEDS: ondansetron HCL 4 MG/2 ML VIAL IVPUSH ×2 (06:15→17:13)
[2022-07-27] MEDS: oxyCODONE HCl Immed Release 5 MG TABLET PO ×4 (06:20→21:13)
[2022-07-27] MEDS: Acetaminophen 325 MG TABLET 650 MG PO ×3 (08:32→21:12)
[2022-07-27] MEDS: Metoprolol Tartrate 50 MG TABLET PO ×2 (08:33→17:55)
[2022-07-27] MEDS: Heparin Sodium,Porcine Flush 50 UNITS, 0.9 % Sodium Chloride Flush 5 ML IVFLUSH ×3 (08:34→21:15)
[2022-07-27] MEDS: Lidocaine 4 % Patch ADH..PATCH 1 PATCH TRANSDERMA (08:36)
--- NOTE | 2022-07-27 09:24 | P.PNGS_ITS ---
Subjective Subjective Date of Service: 07/27/22 Interval history: She describes dry heaves overnight No actual vomiting Stoma continues to have good output Physical Exam Vital Signs: Vital Signs: Last Vital Signs Temp 96.2 F L 07/27/22 08:13 Pulse 98 07/27/22 08:13 Resp 16 07/27/22 08:13 BP 150/78 H 07/27/22 08:13 Pulse Ox 95 07/27/22 08:13 O2 Del Method 07/27/22 08:13 O2 Flow Rate 2 07/27/22 08:00 FiO2 98 07/21/22 19:39 Oxygen Flow Rate 35 06/13/22 21:00 BMI result Body Mass Index 29.0 Const: Other: Conversant General: no acute distress Resp: Other: Some shortness of breath as baseline Cardio: Rate: regular rate GI: Other: Soft, stoma with good output, liquid, all drains have been pulled out, dressings dry Objective Data Active Medications Acetaminophen (Acetaminophen 325 Mg Tablet) 650 mg PO TID [facility] Last Admin: 07/27/22 08:32 Dose: 650 mg Documented By: VITA Heparin Sodium (Porcine) 50 (units/ Sodium Chloride 5 ml) 0 units IVFLUSH TID [facility] Last Admin: 07/27/22 08:34 Dose: 50 unit Documented By: VITA Duloxetine HCl (Duloxetine Hcl 30 Mg Capsule.Dr) 30 mg PO DAILY [facility] Last Admin: 07/27/22 08:50 Dose: Not Given Documented By: VITA Non-Admin Reason: Patient Refused Enoxaparin Sodium (Enoxaparin Sodium 40 Mg/0.4 Ml Syringe) 40 mg SUBCUT Q24H [facility] Last Admin: 07/23/22 07:38 Dose: 40 mg Documented By: GRISELDA Lidocaine (Lidocaine 4 % Patch Adh..Patch) 1 patch TRANSDERMA DAILY [facility]; Protocol Last Admin: 07/26/22 08:32 Dose: 1 patch Documented By: ASHLEY Loperamide HCl (Loperamide Hcl 2 Mg Capsule) 2 mg PO Q6H [facility] Last Admin: 07/27/22 06:12 Dose: 2 mg Documented By: OTILIO Metoprolol Tartrate (Metoprolol Tartrate 50 Mg Tablet) 50 mg PO Q8H [facility]; Protocol Last Admin: 07/27/22 08:33 Dose: 50 mg Documented By: VITA Patient Own Med ( (Ajovy 1.5 Ml)) 1.5 ml SUBCUT Q30D [facility] Last Admin: 06/30/22 13:56 Dose: 1.5 ml Documented By: LAKESHIA Pt Own (Pantoprazole [Protonix] 40 Mg Tablet,Delayed Release (Dr/Ec)) 40 mg PO BEDTIME [facility] Last Admin: 07/26/22 20:45 Dose: 40 mg Documented By: OTILIO Nystatin (Nystatin Powder 15 Gm Bottle) 1 appl TOPICAL BID [facility]; Protocol Last Admin: 07/26/22 20:46 Dose: 1 appl Documented By: OTILIO Ondansetron HCl (Ondansetron Hcl 4 Mg/2 Ml Vial) 4 mg IVPUSH Q8H PRN PRN Reason: Nausea and Vomiting Last Admin: 07/27/22 06:15 Dose: 4 mg Documented By: OTILIO Oxycodone HCl (Oxycodone Hcl Immed Release 5 Mg Tablet) 5 mg PO Q4H PRN PRN Reason: Pain, Moderate (Pain Scale 4-6 Last Admin: 07/27/22 06:20 Dose: 5 mg Documented By: OTILIO Pharmacy Consult (Consult Rx Perform Med Rec) 1 each MISCELLANE ONCE PRN PRN Reason: Consult order Sodium Chloride (0.9 % Sodium Chloride Flush 3 Ml Syringe) 3 ml IVFLUSH QSHIFT [facility] Last Admin: 07/26/22 20:46 Dose: 3 ml Documented By: OTILIO Sumatriptan Succinate (Sumatriptan Succinate 6 Mg/0.5 Ml Vial) 6 mg SUBCUT DAILY PRN PRN Reason: migraine headache Last Admin: 07/11/22 16:21 Dose: 6 mg Documented By: LINDSEYARTB Labs CBC & Chem 7: 07/24/22 05:57 07/24/22 05:57 Procedures Date of Service Date of Service: 07/27/22 Arterial Line Size (Gauge): 16 Progress Note: A&P Assessment and plan (1) S/P colectomy: Status: Acute Assessment and Plan: Complaints of dry heaves without vomiting Abdomen soft with good stoma output Clinically not obstructed I have instructed her to hold off on regular food if she gets nauseous Good urine output All drains have been pulled out Markedly deconditioned - have encouraged her to increase her level of activities Time Spent With Patient Time: Total time spent is greater than 50% in coordination of care (as documented) at patient's floor/unit and/or counseling patient: Quality Stroke Does the patient have a stroke diagnosis?: No VTE Prior VTE?: No VTE Risk Level:: Medical - moderate - high VTE Device Contraindication: N/A - Device Ordered VTE Drug Contraindication: N/A - Med Ordered
[2022-07-27] MEDS: Nystatin Powder 15 GM BOTTLE 1 APPL TOPICAL (09:32)
[2022-07-27] MEDS: 0.9 % Sodium Chloride Flush 3 ML SYRINGE IVFLUSH ×3 (09:49→23:06)
--- NOTE | 2022-07-27 09:53 | HO.PM.IMPN ---
Subjective Subjective Date of Service: 07/27/22 Interval History: feels bloated this morning, poor appetite, persistent liquidy stools, intermittent nausea refused Cymbalta, motivated to participate with physical therapy, finger oximetry 95 on room air, no acute events overnight. no fevers, no chills, feels discouraged. Review of Systems Review of Systems: Yes all other systems are reviewed and are negative Physical Exam Vital Signs: Vital Signs: Last Vital Signs Temp 96.2 F L 07/27/22 08:13 Pulse 98 07/27/22 08:13 Resp 16 07/27/22 08:13 BP 150/78 H 07/27/22 08:13 Pulse Ox 95 07/27/22 08:13 O2 Del Method 07/27/22 08:13 O2 Flow Rate 2 07/27/22 08:00 FiO2 98 07/21/22 19:39 Oxygen Flow Rate 35 06/13/22 21:00 BMI result Body Mass Index 29.0 Const: Other: Gen:? Awake alert no distress Neck: supple, no JVD Clark gs: clear to auscu ltation bilaterall y Heart: regular, no murmurs Abd: so ft, stoma with liq uidy stool , dress ing to mid abdomen , no drainage, bow el sounds audible Ext:? Edema signif icantly improved f rom before, persis tent mild swelling dorsum of feet ri ght greater than l eft Skin: warm/wel l-perfused Neuro: alert and oriented x3, no focal find ings Psych: approp riate affect Marie catheter in place Objective Data Active Medications Acetaminophen (Acetaminophen 325 Mg Tablet) 650 mg PO TID [facility] Last Admin: 07/27/22 08:32 Dose: 650 mg Documented By: VITA Heparin Sodium (Porcine) 50 (units/ Sodium Chloride 5 ml) 0 units IVFLUSH TID [facility] Last Admin: 07/27/22 08:34 Dose: 50 unit Documented By: VITA Duloxetine HCl (Duloxetine Hcl 30 Mg Capsule.) 30 mg PO DAILY [facility] Last Admin: 07/27/22 08:50 Dose: Not Given Documented By: VITA Non-Admin Reason: Patient Refused Enoxaparin Sodium (Enoxaparin Sodium 40 Mg/0.4 Ml Syringe) 40 mg SUBCUT Q24H [facility] Last Admin: 07/23/22 07:38 Dose: 40 mg Documented By: GRISELDA Lidocaine (Lidocaine 4 % Patch Adh..Patch) 1 patch TRANSDERMA DAILY [facility]; Protocol Last Admin: 07/26/22 08:32 Dose: 1 patch Documented By: ASHLEY Loperamide HCl (Loperamide Hcl 2 Mg Capsule) 2 mg PO Q6H [facility] Last Admin: 07/27/22 06:12 Dose: 2 mg Documented By: OTILIO Metoprolol Tartrate (Metoprolol Tartrate 50 Mg Tablet) 50 mg PO Q8H [facility]; Protocol Last Admin: 07/27/22 08:33 Dose: 50 mg Documented By: VITA Patient Own Med ( (Ajovy 1.5 Ml)) 1.5 ml SUBCUT Q30D [facility] Last Admin: 06/30/22 13:56 Dose: 1.5 ml Documented By: LAKESHIA Pt Own (Pantoprazole [Protonix] 40 Mg Tablet,Delayed Release (Dr/Ec)) 40 mg PO BEDTIME [facility] Last Admin: 07/26/22 20:45 Dose: 40 mg Documented By: OTILIO Nystatin (Nystatin Powder 15 Gm Bottle) 1 appl TOPICAL BID [facility]; Protocol Last Admin: 07/27/22 09:32 Dose: 1 appl Documented By: VITA Ondansetron HCl (Ondansetron Hcl 4 Mg/2 Ml Vial) 4 mg IVPUSH Q8H PRN PRN Reason: Nausea and Vomiting Last Admin: 07/27/22 06:15 Dose: 4 mg Documented By: OTILIO Oxycodone HCl (Oxycodone Hcl Immed Release 5 Mg Tablet) 5 mg PO Q4H PRN PRN Reason: Pain, Moderate (Pain Scale 4-6 Last Admin: 07/27/22 06:20 Dose: 5 mg Documented By: OTILIO Pharmacy Consult (Consult Rx Perform Med Rec) 1 each MISCELLANE ONCE PRN PRN Reason: Consult order Sodium Chloride (0.9 % Sodium Chloride Flush 3 Ml Syringe) 3 ml IVFLUSH QSHIFT [facility] Last Admin: 07/27/22 09:49 Dose: 3 ml Documented By: VITA Sumatriptan Succinate (Sumatriptan Succinate 6 Mg/0.5 Ml Vial) 6 mg SUBCUT DAILY PRN PRN Reason: migraine headache Last Admin: 07/11/22 16:21 Dose: 6 mg Documented By: SANTOS Labs CBC & Chem 7: 07/24/22 05:57 07/24/22 05:57 Assessment and Plan (1) S/P colectomy: Status: Acute (2) Megacolon, toxic: Status: Acute (3) Hemorrhagic shock: Status: Acute (4) Tachycardia: Status: Acute (5) Crohn's disease: Status: Acute (6) Status post colostomy: Status: Acute Plan 62-year-old female who was initially admitted to the hospital on 05/18 22 with colitis/ Crohn's flare, she had a flex sig showed perforation with abscesses, taken to OR for ex lap with colostomy after found to have extensive fecal soilage in peritoneum, she was severely septic, she was sent to the ICU and intubated, course and was complicated by multiple intra-abdominal abscesses causing fevers with multiple drains placed by IR. She was then transitioned to 2 fees and then to oral diet. Currently on oral diet. On Jul 13 pt taken to the OR for E-lap and 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 The procedure was extremely difficult and prolonged 2? adhesions, and was complicated by multiple enterotomies which were primarily closed.? She developed progressive septic shock during the procedure, complicated by marked hypovolemia and coagulopathy.? EBL was 2000cc.? She was given multiple units of blood, FFP, and cryo. Postoperatively, she was transferred to the ICU.? Postop echo but Dr. Pinedo still showed hyperdynamic LV function with no significant RV dysfunction.? She was put on linezolid Levaquin and Flagyl.? She was given two more units of blood on Jul 14. patient was extubated Jul 16 without incident.?patient subsequently transferred to intermediate care unit on 07/20. #Toxic megacolon underwent difficult re-exploration and colectomy 07/13, - stoma functioning well , liquidy stools, - feels bloated with intermittent nausea , currently on regular diet - continue by mouth oxycodone, scheduled Tylenol and continue Lidoderm patch, pain under good control continue Protonix, DC Cymbalta since patient refusing to take DC Marie catheter now on room air, encourage incentive spirometry # Bright red blood per rectum resolved hematocrit remains stable likely from residual retained stools in the rectosigmoid no recurrent episodes #Gross anasarca improved, s/p Lasix # Hypokalemia resolved # Tachycardia - improved continue metoprolol [address] back on metoprolol 75 mg t.i.d. 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 subsequently discontinued DVT prophylaxis with Lovenox Patient requires continued inpatient hospitalization due to being on IV Dilaudid for pain control, will gradually wean dilaudid and plan for rehab Quality Stroke Does the patient have a stroke diagnosis?: No VTE Prior VTE?: No VTE Risk Level:: Medical - moderate - high VTE Device Contraindication: N/A - Device Ordered VTE Drug Contraindication: N/A - Med Ordered
--- NOTE | 2022-07-27 10:33 | PM.GIPN ---
Subjective Subjective Date of Service: 07/27/22 Interval History: c/o dry heaves overnight Critical Care Time (minutes): 0 Physical Exam Vital Signs: Vital Signs: Last Vital Signs Temp 96.2 F L 07/27/22 08:13 Pulse 98 07/27/22 08:13 Resp 16 07/27/22 08:13 BP 150/78 H 07/27/22 08:13 Pulse Ox 96 07/27/22 10:29 O2 Del Method 07/27/22 10:29 O2 Flow Rate 2 07/27/22 08:00 FiO2 98 07/21/22 19:39 Oxygen Flow Rate 35 06/13/22 21:00 BMI result Body Mass Index 29.0 Const: Other: appears tired GI: Other: abdomen is soft and nontender Objective Data Labs CBC & Chem 7: 07/24/22 05:57 07/24/22 05:57 Procedures Date of Service Date of Service: 07/27/22 Arterial Line Size (Gauge): 16 Progress Note: A&P Assessment and plan (1) Megacolon, toxic: Status: Acute Assessment and Plan: continue ppi and zofran for nausea physical therapy Time Spent With Patient Time: Total time spent is greater than 50% in coordination of care (as documented) at patient's floor/unit and/or counseling patient: Quality Stroke Does the patient have a stroke diagnosis?: No VTE Prior VTE?: No VTE Risk Level:: Medical - moderate - high VTE Device Contraindication: N/A - Device Ordered VTE Drug Contraindication: N/A - Med Ordered
--- NOTE | 2022-07-27 12:21 | PC.NURSE ---
odell was removed at 1200. pt due to void at [id number]
--- NOTE | 2022-07-27 15:15 | PC.NURSE ---
15:05 pt c/o R side chest pain with breathing in, described as throbbing, sinus tach on tele, rated as 5/10, agreed to take Oxy. administered Oxy. Dr Hurtado notified. will cont to monitor
[2022-07-27] MEDS: SUMAtriptan succinate 6 MG/0.5 ML VIAL SUBCUT (17:13)
--- NOTE | 2022-07-27 19:28 | PC.NURSE ---
LATE ENTRY pt has no c/o chest pain at 1800 pt c/o bladder discomfort and could not urinate, MD notified, bladder scan shows 71 ml. MD notified, encourage fluid.
[2022-07-28] VITALS (9 sets, daily range): BP systolic 123–177; BP diastolic 60–95; PULSE 86–108; RESP 16–20; TEMP 36.1–37.8; O2SAT 94–98; BMI 28.4
[2022-07-28] MEDS: ondansetron HCL 4 MG/2 ML VIAL IVPUSH ×2 (01:23→19:56)
[2022-07-28] MEDS: SUMAtriptan succinate 6 MG/0.5 ML VIAL SUBCUT (01:23)
[2022-07-28] MEDS: Metoprolol Tartrate 50 MG TABLET PO (01:24)
[2022-07-28] MEDS: oxyCODONE HCl Immed Release 5 MG TABLET PO ×2 (02:25→16:19)
[2022-07-28] MEDS: HYDROmorphone HCl 1 MG/ML SYRINGE 0.5 MG IVPUSH (05:46)
[2022-07-28] MEDS: Loperamide HCl 2 MG CAPSULE PO ×3 (05:52→19:56)
--- NOTE | 2022-07-28 07:32 | PC.NURSE ---
Patient reported migraine headache she was given 6mg of sub q Imetrex at 1713 , I text Dr Mckinney a 1 time dose ordered and administered at 2323. Patient reported to have 8/10 lower right ABD pain PRN oxycodone given at 0200 with very little relief, the goal was to wean the patient off Dilaudid, I explaines she was not getting any relief Dr Mckinney ordered a 0.5 1x dose,
--- NOTE | 2022-07-28 07:44 | PC.NURSE ---
Patient febrile @0555 101.1 ice packs applied to armpits and behind neck, 0630 temp down to 98.5. Moore pressures reported higher 170's/70's reported to day shift nurse Libby.
[2022-07-28] MEDS: Acetaminophen 325 MG TABLET 650 MG PO ×3 (08:13→19:56)
[2022-07-28] MEDS: Lidocaine 4 % Patch ADH..PATCH 1 PATCH TRANSDERMA (08:13)
[2022-07-28] MEDS: Heparin Sodium,Porcine Flush 50 UNITS, 0.9 % Sodium Chloride Flush 5 ML IVFLUSH ×3 (08:14→19:56)
--- NOTE | 2022-07-28 08:53 | P.PNGS_ITS ---
Subjective Subjective Date of Service: 07/28/22 Interval history: had some dry heaves last night tolerating diet stoma functioning Physical Exam Vital Signs: Vital Signs: Last Vital Signs Temp 98.1 F 07/28/22 07:33 Pulse 108 H 07/28/22 07:33 Resp 16 07/28/22 07:33 BP 171/76 H 07/28/22 07:33 Pulse Ox 96 07/28/22 07:33 O2 Del Method 07/28/22 07:33 O2 Flow Rate 2 07/27/22 08:00 FiO2 98 07/21/22 19:39 Oxygen Flow Rate 35 06/13/22 21:00 BMI result Body Mass Index 28.4 Const: Other: some SOB as baseline, very conversant Resp: Other: some SOB as baseline GI: Other: soft, stoma with good output, dressings dry Objective Data Active Medications Acetaminophen (Acetaminophen 325 Mg Tablet) 650 mg PO TID [facility] Last Admin: 07/28/22 08:13 Dose: 650 mg Documented By: TRAV Heparin Sodium (Porcine) 50 (units/ Sodium Chloride 5 ml) 0 units IVFLUSH TID [facility] Last Admin: 07/28/22 08:14 Dose: 50 unit Documented By: TRAV Enoxaparin Sodium (Enoxaparin Sodium 40 Mg/0.4 Ml Syringe) 40 mg SUBCUT Q24H [facility] Last Admin: 07/23/22 07:38 Dose: 40 mg Documented By: GRISELDA Lidocaine (Lidocaine 4 % Patch Adh..Patch) 1 patch TRANSDERMA DAILY [facility]; Protocol Last Admin: 07/28/22 08:13 Dose: 1 patch Documented By: TRAV Loperamide HCl (Loperamide Hcl 2 Mg Capsule) 2 mg PO Q6H [facility] Last Admin: 07/28/22 05:52 Dose: 2 mg Documented By: ROSE Metoprolol Tartrate (Metoprolol Tartrate 25 Mg Tablet) 75 mg PO Q8H [facility]; Protocol Patient Own Med ( (Ajovy 1.5 Ml)) 1.5 ml SUBCUT Q30D [facility] Last Admin: 06/30/22 13:56 Dose: 1.5 ml Documented By: LAKESHIA Pt Own (Pantoprazole [Protonix] 40 Mg Tablet,Delayed Release (Dr/Ec)) 40 mg PO BEDTIME [facility] Last Admin: 07/27/22 21:38 Dose: 40 mg Documented By: ROSE Nystatin (Nystatin Powder 15 Gm Bottle) 1 appl TOPICAL BID [facility]; Protocol Last Admin: 07/27/22 21:45 Dose: Not Given Documented By: ROSE Non-Admin Reason: Med Not Available Ondansetron HCl (Ondansetron Hcl 4 Mg/2 Ml Vial) 4 mg IVPUSH Q8H PRN PRN Reason: Nausea and Vomiting Last Admin: 07/28/22 01:23 Dose: 4 mg Documented By: ROSE Oxycodone HCl (Oxycodone Hcl Immed Release 5 Mg Tablet) 5 mg PO Q4H PRN PRN Reason: Pain, Moderate (Pain Scale 4-6 Last Admin: 07/28/22 02:25 Dose: 5 mg Documented By: ROSE Pharmacy Consult (Consult Rx Perform Med Rec) 1 each MISCELLANE ONCE PRN PRN Reason: Consult order Sodium Chloride (0.9 % Sodium Chloride Flush 3 Ml Syringe) 3 ml IVFLUSH QSHIFT [facility] Last Admin: 07/27/22 23:06 Dose: 3 ml Documented By: ROSE Sumatriptan Succinate (Sumatriptan Succinate 6 Mg/0.5 Ml Vial) 6 mg SUBCUT DAILY PRN PRN Reason: migraine headache Last Admin: 07/27/22 17:13 Dose: 6 mg Documented By: INDIRA Labs CBC & Chem 7: 07/24/22 05:57 07/24/22 05:57 Procedures Date of Service Date of Service: 07/28/22 Arterial Line Size (Gauge): 16 Progress Note: A&P Assessment and plan (1) S/P colectomy: Status: Acute Assessment and Plan: stoma functioning push PO intake as tolerated markedly deconditioned - encouraged to increase level of activity PT/OT abd soft, no guarding Time Spent With Patient Time: Total time spent is greater than 50% in coordination of care (as documented) at patient's floor/unit and/or counseling patient: Quality Stroke Does the patient have a stroke diagnosis?: No VTE Prior VTE?: No VTE Risk Level:: Medical - moderate - high VTE Device Contraindication: N/A - Device Ordered VTE Drug Contraindication: N/A - Med Ordered
[2022-07-28] MEDS: Metoprolol Tartrate 25 MG TABLET 75 MG PO ×2 (09:33→16:19)
[2022-07-28] MEDS: 0.9 % Sodium Chloride Flush 3 ML SYRINGE IVFLUSH ×2 (09:34→19:58)
--- NOTE | 2022-07-28 11:51 | HE.PHANOTE ---
Patient's brought in [facility] from [facility] pharmacy, was dispensed 07/24. RNLibby says had it refrigerated. Can only be at room temperature for 7 days. Dose due 07/31. Sent back up to floor, put in fridge until dose is due.
[2022-07-28] MEDS: Nystatin Powder 15 GM BOTTLE 1 APPL TOPICAL ×2 (12:07→21:03)
--- NOTE | 2022-07-28 12:08 | MHC.CLN ---
F/U PO INTAKE 25-50%% NOTED EPISODE OF DRY HEAVES 07/27 DIET RX: REGULAR-APPROPRIATE PT RECEIVING ENSURE TID TO PROVIDE 1050KCALS, 60G PROTEIN PT SIPS SUPP THROUGHOUT THE DAY CONTINUE TO MONITOR PO INTAKE CLOSELY
--- NOTE | 2022-07-28 14:45 | PM.GIPN ---
Subjective Subjective Date of Service: 07/28/22 Interval History: c/o some post prandial abdominal cramping Critical Care Time (minutes): 0 Physical Exam Vital Signs: Vital Signs: Last Vital Signs Temp 98.0 F 07/28/22 12:00 Pulse 86 07/28/22 12:00 Resp 20 07/28/22 12:00 BP 147/69 H 07/28/22 12:00 Pulse Ox 97 07/28/22 12:00 O2 Del Method 07/28/22 12:00 O2 Flow Rate 2 07/27/22 08:00 FiO2 98 07/21/22 19:39 Oxygen Flow Rate 35 06/13/22 21:00 BMI result Body Mass Index 28.4 GI: Other: abdomen is soft and nontender Objective Data Labs CBC & Chem 7: 07/24/22 05:57 07/24/22 05:57 Procedures Date of Service Date of Service: 07/28/22 Arterial Line Size (Gauge): 16 Progress Note: A&P Assessment and plan (1) Megacolon, toxic: Status: Acute Assessment and Plan: eating well restarted bentyl before meals to help with cramping. Time Spent With Patient Time: Total time spent is greater than 50% in coordination of care (as documented) at patient's floor/unit and/or counseling patient: Quality Stroke Does the patient have a stroke diagnosis?: No VTE Prior VTE?: No VTE Risk Level:: Medical - moderate - high VTE Device Contraindication: N/A - Device Ordered VTE Drug Contraindication: N/A - Med Ordered
--- NOTE | 2022-07-28 15:22 | HO.PM.IMPN ---
Subjective Subjective Date of Service: 07/28/22 Interval History: overall feeling better complaining of back pain requesting for muscle relaxers, nausea and abdominal pain is better stool noted to be more formed, no fevers no chills, no acute overnight events. Review of Systems [employer] no headache no dizziness CVS no chest pain, no palpitation respiratory no shortness of breath Review of Systems: Yes all other systems are reviewed and are negative Physical Exam Vital Signs: Vital Signs: Last Vital Signs Temp 98.0 F 07/28/22 12:00 Pulse 86 07/28/22 12:00 Resp 20 07/28/22 12:00 BP 147/69 H 07/28/22 12:00 Pulse Ox 97 07/28/22 12:00 O2 Del Method 07/28/22 12:00 O2 Flow Rate 2 07/27/22 08:00 FiO2 98 07/21/22 19:39 Oxygen Flow Rate 35 06/13/22 21:00 BMI result Body Mass Index 28.4 Const: Other: Gen:? Awake alert, no distress Neck: supple, no JVD Lungs: clear to auscultation bilaterally Heart: regular,no murmurs Abd: soft, stoma with yellow semi-formed stool,dressing to mid abdomen, no drainage, bowel sounds audible Ext:? Edema significantly improved from before,mild swelling dorsum of feet right greater than left Skin: warm/well-perfused Neuro: alert and oriented x3, no focal findings Psych: appropriate affect Objective Data Active Medications Acetaminophen (Acetaminophen 325 Mg Tablet) 650 mg PO TID [facility] Last Admin: 07/28/22 08:13 Dose: 650 mg Documented By: TRAV Heparin Sodium (Porcine) 50 (units/ Sodium Chloride 5 ml) 0 units IVFLUSH TID [facility] Last Admin: 07/28/22 08:14 Dose: 50 unit Documented By: TRAV Dicyclomine HCl (Dicyclomine Hcl 10 Mg Capsule) 20 mg PO TIDAC [facility] Enoxaparin Sodium (Enoxaparin Sodium 40 Mg/0.4 Ml Syringe) 40 mg SUBCUT Q24H [facility] Last Admin: 07/23/22 07:38 Dose: 40 mg Documented By: GRISELDA Lidocaine (Lidocaine 4 % Patch Adh..Patch) 1 patch TRANSDERMA DAILY [facility]; Protocol Last Admin: 07/28/22 08:13 Dose: 1 patch Documented By: TRAV Loperamide HCl (Loperamide Hcl 2 Mg Capsule) 2 mg PO Q6H [facility] Last Admin: 07/28/22 05:52 Dose: 2 mg Documented By: ROSE Metoprolol Tartrate (Metoprolol Tartrate 25 Mg Tablet) 75 mg PO Q8H [facility]; Protocol Last Admin: 07/28/22 09:33 Dose: 75 mg Documented By: TRAV Patient Own Med ( (Ajovy 1.5 Ml)) 1.5 ml SUBCUT Q30D [facility] Last Admin: 06/30/22 13:56 Dose: 1.5 ml Documented By: LAKESHIA Pt Own (Pantoprazole [Protonix] 40 Mg Tablet,Delayed Release (Dr/Ec)) 40 mg PO BEDTIME [facility] Last Admin: 07/27/22 21:38 Dose: 40 mg Documented By: ROSE Nystatin (Nystatin Powder 15 Gm Bottle) 1 appl TOPICAL BID [facility]; Protocol Last Admin: 07/28/22 12:07 Dose: 1 appl Documented By: TRAV Ondansetron HCl (Ondansetron Hcl 4 Mg/2 Ml Vial) 4 mg IVPUSH Q8H PRN PRN Reason: Nausea and Vomiting Last Admin: 07/28/22 01:23 Dose: 4 mg Documented By: ROSE Oxycodone HCl (Oxycodone Hcl Immed Release 5 Mg Tablet) 5 mg PO Q4H PRN PRN Reason: Pain, Moderate (Pain Scale 4-6 Last Admin: 07/28/22 02:25 Dose: 5 mg Documented By: ROSE Pharmacy Consult (Consult Rx Perform Med Rec) 1 each MISCELLANE ONCE PRN PRN Reason: Consult order Sodium Chloride (0.9 % Sodium Chloride Flush 3 Ml Syringe) 3 ml IVFLUSH QSHIFT [facility] Last Admin: 07/28/22 09:34 Dose: 3 ml Documented By: TRAV Sumatriptan Succinate (Sumatriptan Succinate 6 Mg/0.5 Ml Vial) 6 mg SUBCUT DAILY PRN PRN Reason: migraine headache Last Admin: 07/27/22 17:13 Dose: 6 mg Documented By: INDIRA Labs CBC & Chem 7: 07/24/22 05:57 07/24/22 05:57 Assessment and Plan (1) S/P colectomy: Status: Acute (2) Megacolon, toxic: Status: Acute (3) Hemorrhagic shock: Status: Acute (4) Tachycardia: Status: Acute (5) Crohn's disease: Status: Acute (6) Status post colostomy: Status: Acute Plan 62-year-old female who was initially admitted to the hospital on 05/18 22 with colitis/ Crohn's flare, she had a flex sig showed perforation with abscesses, taken to OR for ex lap with colostomy after found to have extensive fecal soilage in peritoneum, she was severely septic, she was sent to the ICU and intubated, course and was complicated by multiple intra-abdominal abscesses causing fevers with multiple drains placed by IR. She was then transitioned to 2 fees and then to oral diet. Currently on oral diet. On Jul 13 pt taken to the OR for E-lap and 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 The procedure was extremely difficult and prolonged 2? adhesions, and was complicated by multiple enterotomies which were primarily closed.? She developed progressive septic shock during the procedure, complicated by marked hypovolemia and coagulopathy.? EBL was 2000cc.? She was given multiple units of blood, FFP, and cryo. Postoperatively, she was transferred to the ICU.? Postop echo but Dr. Pinedo still showed hyperdynamic LV function with no significant RV dysfunction.? She was put on linezolid Levaquin and Flagyl.? She was given two more units of blood on Jul 14. patient was extubated Jul 16 without incident.?patient subsequently transferred to intermediate care unit on 07/20. #Toxic megacolon underwent difficult re-exploration and colectomy 07/13, - stoma functioning well , stool more formed, - on regular diet - good pain control,continue by mouth oxycodone, scheduled Tylenol and continue Lidoderm patch, pain under good control continue Protonix, Bentyl added due to abdominal cramps by GI now on room air, encourage incentive spirometry # Bright red blood per rectum likely from residual retained stools in the rectosigmoid , had 1 recurrent episode on 07/27 # back pain musculoskeletal recommended hot pack and will place on Flexeril daily as needed for muscle spasm #Gross anasarca improved, s/p Lasix # Hypokalemia resolved # Tachycardia - improved continue metoprolol 75 mg t.i.d. since noted to have elevated blood pressure and f tachycardia # ICU myopathy continue PT OT, plan for rehab #C diff colitis finished course of Flagyl, WBC improved to 11.6 #Status post septic shock secondary to perforated viscus with fecal peritonitis and fungal peritonitis, finish course of voriconazole on 07/23 # difficulty reading small print, normal eye examination, recommend outpatient follow-up with knot cutter # nausea likely due to narcotics improving Resolved issues SABINE resolved Toxic metabolic encephalopathy resolved Hypophosphatemia/hypomagnesemia resolved Left upper extremity catheter associated DVT proximal left brachial vein diagnosed on 06/27, midline catheter was removed patient treated with Lovenox subQ b.i.d. subsequently discontinued DVT prophylaxis with Lovenox Patient requires continued inpatient hospitalization for safe discharge to rehab Quality Stroke Does the patient have a stroke diagnosis?: No VTE Prior VTE?: No VTE Risk Level:: Medical - moderate - high VTE Device Contraindication: N/A - Device Ordered VTE Drug Contraindication: N/A - Med Ordered
--- NOTE | 2022-07-28 15:24 | MHC.CM.PN ---
PER MD ROUNDS, PT NEAR READY FOR DC, HAS BEEN DECLINED BY [facility], SAMANTHA GOLDMAN/ESTEBAN WILLING TO REVIEW FOR ADMISSION SUNDAY. PT/SPOUSE UPDATED. CM WILL CONTINUE TO FOLLOW
[2022-07-28] MEDS: Dicyclomine HCl 10 MG CAPSULE 20 MG PO (16:19)
[2022-07-29] MEDS: Metoprolol Tartrate 25 MG TABLET 75 MG PO ×3 (01:57→16:22)
[2022-07-29 03:18] VITALS: BP 122/58; PULSE 87; RESP 18; TEMP 36.6; O2SAT 97
[2022-07-29] MEDS: oxyCODONE HCl Immed Release 5 MG TABLET PO ×3 (04:49→16:33)
[2022-07-29] MEDS: Loperamide HCl 2 MG CAPSULE PO ×4 (04:50→22:04)
[2022-07-29 06:00] VITALS: BMI 28.6
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
[2022-07-29 07:34] VITALS: BP 124/65; PULSE 104; RESP 20; TEMP 37; O2SAT 94
[2022-07-29] MEDS: Dicyclomine HCl 10 MG CAPSULE 20 MG PO ×3 (07:52→16:22)
[2022-07-29] MEDS: 0.9 % Sodium Chloride Flush 3 ML SYRINGE IVFLUSH (07:53)
[2022-07-29] MEDS: Heparin Sodium,Porcine Flush 50 UNITS, 0.9 % Sodium Chloride Flush 5 ML IVFLUSH ×3 (07:53→22:04)
[2022-07-29] MEDS: Acetaminophen 325 MG TABLET 650 MG PO ×3 (07:53→22:00)
[2022-07-29] MEDS: Nystatin Powder 15 GM BOTTLE 1 APPL TOPICAL ×2 (07:54→22:04)
--- NOTE | 2022-07-29 11:18 | P.PNGS_ITS ---
Subjective Subjective Date of Service: 07/29/22 Patient reports: no new complaints, feels better and tolerating a regular diet Interval history: The patient reports she is doing better and denies any specific complaints of chest pain, difficulty breathing or shortness of breath. She reports some occasional abdominal cramping that is worse at the end of the day and manageable with Tylenol. She had some toast and protein shake for breakfast and noted that her is bringing protein drinks (vanilla ensure) from home. Physical Exam Vital Signs: Vital Signs: Last Vital Signs Temp 98.6 F 07/29/22 07:34 Pulse 104 H 07/29/22 07:34 Resp 20 07/29/22 07:34 BP 124/65 07/29/22 07:34 Pulse Ox 94 07/29/22 07:34 O2 Del Method 07/29/22 07:34 O2 Flow Rate 2 07/27/22 08:00 FiO2 98 07/21/22 19:39 Oxygen Flow Rate 35 06/13/22 21:00 BMI result Body Mass Index 28.6 The patient is comfortable and speaking in full sentences Stoma is functioning Objective Data Active Medications Acetaminophen (Acetaminophen 325 Mg Tablet) 650 mg PO TID [facility] Last Admin: 07/29/22 07:53 Dose: 650 mg Documented By: LAURIE Heparin Sodium (Porcine) 50 (units/ Sodium Chloride 5 ml) 0 units IVFLUSH TID [facility] Last Admin: 07/29/22 07:53 Dose: 50 unit Documented By: LAURIE Cyclobenzaprine HCl (Cyclobenzaprine Hcl 10 Mg Tablet) 10 mg PO DAILY PRN PRN Reason: back spasm Dicyclomine HCl (Dicyclomine Hcl 10 Mg Capsule) 20 mg PO TIDAC [facility] Last Admin: 07/29/22 07:52 Dose: 20 mg Documented By: LAURIE Enoxaparin Sodium (Enoxaparin Sodium 40 Mg/0.4 Ml Syringe) 40 mg SUBCUT Q24H [facility] Last Admin: 07/23/22 07:38 Dose: 40 mg Documented By: GRISELDA Lidocaine (Lidocaine 4 % Patch Adh..Patch) 1 patch TRANSDERMA DAILY [facility]; Protocol Last Admin: 07/29/22 11:08 Dose: Not Given Documented By: LAURIE Non-Admin Reason: Patient Refused Loperamide HCl (Loperamide Hcl 2 Mg Capsule) 2 mg PO Q6H [facility] Last Admin: 07/29/22 04:50 Dose: 2 mg Documented By: JOSE JUAN Metoprolol Tartrate (Metoprolol Tartrate 25 Mg Tablet) 75 mg PO Q8H [facility]; Protocol Last Admin: 07/29/22 07:52 Dose: 75 mg Documented By: LAURIE Patient Own Med ( (Ajovy 1.5 Ml)) 1.5 ml SUBCUT Q30D [facility] Last Admin: 06/30/22 13:56 Dose: 1.5 ml Documented By: LAKESHIA Pt Own (Pantoprazole [Protonix] 40 Mg Tablet,Delayed Release (Dr/Ec)) 40 mg PO BEDTIME [facility] Last Admin: 07/28/22 19:57 Dose: 40 mg Documented By: JOSE JUAN Nystatin (Nystatin Powder 15 Gm Bottle) 1 appl TOPICAL BID [facility]; Protocol Last Admin: 07/29/22 07:54 Dose: 1 appl Documented By: LAURIE Ondansetron HCl (Ondansetron Hcl 4 Mg/2 Ml Vial) 4 mg IVPUSH Q8H PRN PRN Reason: Nausea and Vomiting Last Admin: 07/28/22 19:56 Dose: 4 mg Documented By: JOSE JUAN Oxycodone HCl (Oxycodone Hcl Immed Release 5 Mg Tablet) 5 mg PO Q4H PRN PRN Reason: Pain, Moderate (Pain Scale 4-6 Last Admin: 07/29/22 04:49 Dose: 5 mg Documented By: JOSE JUAN Pharmacy Consult (Consult Rx Perform Med Rec) 1 each MISCELLANE ONCE PRN PRN Reason: Consult order Sodium Chloride (0.9 % Sodium Chloride Flush 3 Ml Syringe) 3 ml IVFLUSH QSHIFT [facility] Last Admin: 07/29/22 07:53 Dose: 3 ml Documented By: LAURIE Sumatriptan Succinate (Sumatriptan Succinate 6 Mg/0.5 Ml Vial) 6 mg SUBCUT DAILY PRN PRN Reason: migraine headache Last Admin: 07/27/22 17:13 Dose: 6 mg Documented By: INDIRA Labs CBC & Chem 7: 07/24/22 05:57 07/24/22 05:57 Procedures Date of Service Date of Service: 07/29/22 Arterial Line Size (Gauge): 16 Progress Note: A&P Assessment and plan (1) S/P colectomy: Status: Acute (2) Crohn's disease: Status: Acute (3) Leukocytosis: Status: Acute Plan Diet as tolerated Physical therapy for severe deconditioning Trend white blood cell count. Time Spent With Patient Time: Total time spent is greater than 50% in coordination of care (as documented) at patient's floor/unit and/or counseling patient: Quality Stroke Does the patient have a stroke diagnosis?: No VTE Prior VTE?: No VTE Risk Level:: Medical - moderate - high VTE Device Contraindication: N/A - Device Ordered VTE Drug Contraindication: N/A - Med Ordered
[2022-07-29 11:22] VITALS: BP 107/51; PULSE 88; RESP 20; TEMP 36.7; O2SAT 97
[2022-07-29] MEDS: ondansetron HCL 4 MG/2 ML VIAL IVPUSH (12:02)
--- NOTE | 2022-07-29 13:25 | HO.PM.IMPN ---
Subjective Subjective Date of Service: 07/29/22 Interval History: slept well last night , feels rested, offers no acute complaints has been doing bed mobility exercises, ileostomy back with liquidy stools this morning, trying to eat more, denies nausea vomiting abdominal pain, no fevers no chills. Review of Systems Review of Systems: Yes all other systems are reviewed and are negative Physical Exam Vital Signs: Vital Signs: Last Vital Signs Temp 98.0 F 07/29/22 11: Pulse 88 07/29/22 11:22 Resp 20 07/29/22 11:22 BP 107/51 L 07/29/22 11:22 Pulse Ox 97 07/29/22 11:22 O2 Del Method 07/29/22 11:22 O2 Flow Rate 2 07/27/22 08:00 FiO2 98 07/21/22 19:39 Oxygen Flow Rate 35 06/13/22 21:00 BMI result Body Mass Index 28.6 Const: Other: Gen:? Awake alert, no distress Neck: supple, no JVD Lungs: clear to auscultation bilaterally Heart: regular,no murmurs Abd: soft, stoma with liquidy stool,dressing to mid abdomen, no drainage, bowel sounds audible Ext:? mild swelling dorsum of feet right greater than left improving Skin: warm/well-perfused Neuro: alert and oriented x3, no focal findings Psych: appropriate affect ? Objective Data Active Medications Acetaminophen (Acetaminophen 325 Mg Tablet) 650 mg PO TID [facility] Last Admin: 07/29/22 07:53 Dose: 650 mg Documented By: LAURIE Heparin Sodium (Porcine) 50 (units/ Sodium Chloride 5 ml) 0 units IVFLUSH TID [facility] Last Admin: 07/29/22 07:53 Dose: 50 unit Documented By: LAURIE Cyclobenzaprine HCl (Cyclobenzaprine Hcl 10 Mg Tablet) 10 mg PO DAILY PRN PRN Reason: back spasm Dicyclomine HCl (Dicyclomine Hcl 10 Mg Capsule) 20 mg PO TIDAC [facility] Last Admin: 07/29/22 11:28 Dose: 20 mg Documented By: LAURIE Enoxaparin Sodium (Enoxaparin Sodium 40 Mg/0.4 Ml Syringe) 40 mg SUBCUT Q24H [facility] Last Admin: 07/23/22 07:38 Dose: 40 mg Documented By: GRISELDA Lidocaine (Lidocaine 4 % Patch Adh..Patch) 1 patch TRANSDERMA DAILY [facility]; Protocol Last Admin: 07/29/22 11:08 Dose: Not Given Documented By: LAURIE Non-Admin Reason: Patient Refused Loperamide HCl (Loperamide Hcl 2 Mg Capsule) 2 mg PO Q6H [facility] Last Admin: 07/29/22 11:28 Dose: 2 mg Documented By: LAURIE Metoprolol Tartrate (Metoprolol Tartrate 25 Mg Tablet) 75 mg PO Q8H [facility]; Protocol Last Admin: 07/29/22 07:52 Dose: 75 mg Documented By: LAURIE Patient Own Med ( (Ajovy 1.5 Ml)) 1.5 ml SUBCUT Q30D [facility] Last Admin: 06/30/22 13:56 Dose: 1.5 ml Documented By: LAKESHIA Pt Own (Pantoprazole [Protonix] 40 Mg Tablet,Delayed Release (Dr/Ec)) 40 mg PO BEDTIME [facility] Last Admin: 07/28/22 19:57 Dose: 40 mg Documented By: JOSE JUAN Nystatin (Nystatin Powder 15 Gm Bottle) 1 appl TOPICAL BID [facility]; Protocol Last Admin: 07/29/22 07:54 Dose: 1 appl Documented By: LAURIE Ondansetron HCl (Ondansetron Hcl 4 Mg/2 Ml Vial) 4 mg IVPUSH Q8H PRN PRN Reason: Nausea and Vomiting Last Admin: 07/29/22 12:02 Dose: 4 mg Documented By: LAURIE Pharmacy Consult (Consult Rx Perform Med Rec) 1 each MISCELLANE ONCE PRN PRN Reason: Consult order Sodium Chloride (0.9 % Sodium Chloride Flush 3 Ml Syringe) 3 ml IVFLUSH QSHIFT [facility] Last Admin: 07/29/22 07:53 Dose: 3 ml Documented By: LAURIE Sumatriptan Succinate (Sumatriptan Succinate 6 Mg/0.5 Ml Vial) 6 mg SUBCUT DAILY PRN PRN Reason: migraine headache Last Admin: 07/27/22 17:13 Dose: 6 mg Documented By: INDIRA Labs CBC & Chem 7: 07/24/22 05:57 07/24/22 05:57 Assessment and Plan (1) S/P colectomy: Status: Acute (2) Megacolon, toxic: Status: Acute (3) Hemorrhagic shock: Status: Acute (4) Tachycardia: Status: Acute (5) Crohn's disease: Status: Acute (6) Status post colostomy: Status: Acute Plan 62-year-old female who was initially admitted to the hospital on 05/18 22 with colitis/ Crohn's flare, she had a flex sig showed perforation with abscesses, taken to OR for ex lap with colostomy after found to have extensive fecal soilage in peritoneum, she was severely septic, she was sent to the ICU and intubated, course and was complicated by multiple intra-abdominal abscesses causing fevers with multiple drains placed by IR. She was then transitioned to 2 fees and then to oral diet. Currently on oral diet. On Jul 13 pt taken to the OR for E-lap and 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 The procedure was extremely difficult and prolonged 2? adhesions, and was complicated by multiple enterotomies which were primarily closed.? She developed progressive septic shock during the procedure, complicated by marked hypovolemia and coagulopathy.? EBL was 2000cc.? She was given multiple units of blood, FFP, and cryo. Postoperatively, she was transferred to the ICU.? Postop echo but Dr. Pinedo still showed hyperdynamic LV function with no significant RV dysfunction.? She was put on linezolid Levaquin and Flagyl.? She was given two more units of blood on Jul 14. patient was extubated Jul 16 without incident.?patient subsequently transferred to intermediate care unit on 07/20. #Toxic megacolon underwent difficult re-exploration and colectomy 07/13, - stoma functioning well , stool more formed, - on regular diet - good pain control,continue oxycodone prn, scheduled Tylenol and Lidoderm patch continue Protonix, Bentyl for cramps now on room air, encourage incentive spirometry # Bright red blood per rectum likely from residual retained stools in the rectosigmoid , had 1 recurrent episode on 07/27 # back pain musculoskeletal recommended hot pack and Flexeril daily as needed for muscle spasm #Gross anasarca improved, s/p Lasix # Hypokalemia resolved # Tachycardia - improved continue metoprolol 75 mg t.i.d. since noted to have elevated blood pressure and tachycardia # ICU myopathy continue PT OT, plan for rehab #C diff colitis finished course of Flagyl, WBC improved to 11.6 #Status post septic shock secondary to perforated viscus with fecal peritonitis and fungal peritonitis, finish course of voriconazole on 07/23 # difficulty reading small print, normal eye examination, recommend outpatient follow-up with [employer] # nausea likely due to narcotics improving Resolved issues SABINE resolved Toxic metabolic encephalopathy resolved Hypophosphatemia/hypomagnesemia resolved Left upper extremity catheter associated DVT proximal left brachial vein diagnosed on 06/27, midline catheter was removed patient treated with Lovenox subQ b.i.d. subsequently discontinued DVT prophylaxis with Lovenox Patient requires continued inpatient hospitalization for safe discharge to rehab Quality Stroke Does the patient have a stroke diagnosis?: No VTE Prior VTE?: No VTE Risk Level:: Medical - moderate - high VTE Device Contraindication: N/A - Device Ordered VTE Drug Contraindication: N/A - Med Ordered
[2022-07-29 15:37] VITALS: BP 131/63; PULSE 106; RESP 17; TEMP 36.7; O2SAT 97
[2022-07-29] MEDS: Metoclopramide HCl 10 MG/2 ML VIAL 5 MG IVPUSH (16:21)
[2022-07-29 19:23] VITALS: BP 133/61; PULSE 92; RESP 18; TEMP 36.6; O2SAT 98
[2022-07-29 23:26] VITALS: BP 136/64; PULSE 98; RESP 18; TEMP 36.8; O2SAT 97
[2022-07-30] VITALS (7 sets, daily range): BP systolic 121–163; BP diastolic 58–77; PULSE 89–105; RESP 14–20; TEMP 36.5–37.4; O2SAT 95–98; BMI 29.0
[2022-07-30] MEDS: Metoprolol Tartrate 25 MG TABLET 75 MG PO ×3 (00:30→16:32)
[2022-07-30] MEDS: ondansetron HCL 4 MG/2 ML VIAL IVPUSH (05:28)
[2022-07-30] MEDS: Loperamide HCl 2 MG CAPSULE PO ×3 (05:28→16:34)
[2022-07-30] MEDS: Heparin Sodium,Porcine Flush 50 UNITS, 0.9 % Sodium Chloride Flush 5 ML IVFLUSH ×3 (08:20→21:20)
[2022-07-30] MEDS: Acetaminophen 325 MG TABLET 650 MG PO ×3 (08:21→21:19)
[2022-07-30] MEDS: Dicyclomine HCl 10 MG CAPSULE 20 MG PO ×3 (08:21→16:32)
[2022-07-30] MEDS: Lidocaine 4 % Patch ADH..PATCH 1 PATCH TRANSDERMA (08:21)
[2022-07-30] MEDS: Nystatin Powder 15 GM BOTTLE 1 APPL TOPICAL ×2 (08:22→21:20)
[2022-07-30] MEDS: 0.9 % Sodium Chloride Flush 3 ML SYRINGE IVFLUSH ×2 (08:22→16:33)
[2022-07-30] MEDS: oxyCODONE HCl Immed Release 5 MG TABLET PO ×3 (08:22→21:19)
--- NOTE | 2022-07-30 11:47 | P.PNIM_ITS ---
Subjective Subjective Date of Service: 07/30/22 Interval History: complaining of intermittent nausea and dry heaves, that is chronic with underlying history of gastroparesis, no other acute issues overnight taking all her regular medications vitals are stable, denies fever chills, no lig htheadedness, no dizziness, sleeping better. Review of Systems Review of Systems: Yes all other systems are reviewed and are negative Physical Exam Vital Signs: Vital Signs: Last Vital Signs Temp 97.7 F 07/30/22 11:37 Pulse 89 07/30/22 11:37 Resp 20 07/30/22 11:37 BP 133/67 07/30/22 11:37 Pulse Ox 97 07/30/22 11:37 O2 Del Method 07/30/22 11:37 O2 Flow Rate 2 07/27/22 08:00 FiO2 98 07/21/22 19:39 Oxygen Flow Rate 35 06/13/22 21:00 BMI result Body Mass Index 29.0 Const: Other: Gen:? Awake alert, no distress Neck: supple, no JVD Lungs: clear to auscultation bilaterally Heart: regular,no murmurs Abd: soft, stoma with liquidy stool,dressing to mid abdomen, no drainage, bowel sounds audible Ext:? minimal swelling both feet Skin: warm/well-perfused Neuro: alert and oriented x3, no focal findings Psych: appropriate affect ? Objective Data Active Medications Acetaminophen (Acetaminophen 325 Mg Tablet) 650 mg PO TID [facility] Last Admin: 07/30/22 08:21 Dose: 650 mg Documented By: ASHLEY Heparin Sodium (Porcine) 50 (units/ Sodium Chloride 5 ml) 0 units IVFLUSH TID [facility] Last Admin: 07/30/22 08:20 Dose: 50 unit Documented By: ASHLEY Cyclobenzaprine HCl (Cyclobenzaprine Hcl 10 Mg Tablet) 10 mg PO DAILY PRN PRN Reason: back spasm Dicyclomine HCl (Dicyclomine Hcl 10 Mg Capsule) 20 mg PO TIDAC [facility] Last Admin: 07/30/22 08:21 Dose: 20 mg Documented By: ASHLEY Enoxaparin Sodium (Enoxaparin Sodium 40 Mg/0.4 Ml Syringe) 40 mg SUBCUT Q24H [facility] Last Admin: 07/23/22 07:38 Dose: 40 mg Documented By: GRISELDA Lidocaine (Lidocaine 4 % Patch Adh..Patch) 1 patch TRANSDERMA DAILY [facility]; Protocol Last Admin: 07/30/22 08:21 Dose: 1 patch Documented By: ASHELY Loperamide HCl (Loperamide Hcl 2 Mg Capsule) 2 mg PO Q6H [facility] Last Admin: 07/30/22 05:28 Dose: 2 mg Documented By: MARYLOU Metoprolol Tartrate (Metoprolol Tartrate 25 Mg Tablet) 75 mg PO Q8H [facility]; Protocol Last Admin: 07/30/22 08:22 Dose: 75 mg Documented By: ASHLEY Patient Own Med ( (Ajovy 1.5 Ml)) 1.5 ml SUBCUT Q30D [facility] Last Admin: 06/30/22 13:56 Dose: 1.5 ml Documented By: LAKESHIA Pt Own (Pantoprazole [Protonix] 40 Mg Tablet,Delayed Release (Dr/Ec)) 40 mg PO BEDTIME [facility] Last Admin: 07/29/22 22:01 Dose: 40 mg Documented By: MARYLOU Nystatin (Nystatin Powder 15 Gm Bottle) 1 appl TOPICAL BID [facility]; Protocol Last Admin: 07/30/22 08:22 Dose: 1 appl Documented By: ASHLEY Ondansetron HCl (Ondansetron Hcl 4 Mg/2 Ml Vial) 4 mg IVPUSH Q6H PRN PRN Reason: Nausea and Vomiting Last Admin: 07/30/22 05:28 Dose: 4 mg Documented By: MARYLOU Oxycodone HCl (Oxycodone Hcl Immed Release 5 Mg Tablet) 5 mg PO Q4H PRN PRN Reason: Pain, Moderate (Pain Scale 4-6 Last Admin: 07/30/22 08:22 Dose: 5 mg Documented By: ASHLEY Pharmacy Consult (Consult Rx Perform Med Rec) 1 each MISCELLANE ONCE PRN PRN Reason: Consult order Sodium Chloride (0.9 % Sodium Chloride Flush 3 Ml Syringe) 3 ml IVFLUSH QSHIFT [facility] Last Admin: 07/30/22 08:22 Dose: 3 ml Documented By: ASHLEY Sumatriptan Succinate (Sumatriptan Succinate 6 Mg/0.5 Ml Vial) 6 mg SUBCUT DAILY PRN PRN Reason: migraine headache Last Admin: 07/27/22 17:13 Dose: 6 mg Documented By: INDIRA Labs CBC & Chem 7: 07/24/22 05:57 07/24/22 05:57 Assessment and Plan (1) S/P colectomy: Status: Acute (2) Megacolon, toxic: Status: Acute (3) Hemorrhagic shock: Status: Acute (4) Tachycardia: Status: Acute (5) Crohn's disease: Status: Acute (6) Status post colostomy: Status: Acute Plan 62-year-old female who was initially admitted to the hospital on 05/18 22 with colitis/ Crohn's flare, she had a flex sig showed perforation with abscesses, taken to OR for ex lap with colostomy after found to have extensive fecal soilage in peritoneum, she was severely septic, she was sent to the ICU and intubated, course and was complicated by multiple intra-abdominal abscesses causing fevers with multiple drains placed by IR. She was then transitioned to 2 fees and then to oral diet. Currently on oral diet. On Jul 13 pt taken to the OR for E-lap and 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 The procedure was extremely difficult and prolonged 2? adhesions, and was complicated by multiple enterotomies which were primarily closed.? She developed progressive septic shock during the procedure, complicated by marked hypovolemia and coagulopathy.? EBL was 2000cc.? She was given multiple units of blood, FFP, and cryo. Postoperatively, she was transferred to the ICU.? Postop echo but Dr. Pinedo still showed hyperdynamic LV function with no significant RV dysfunction.? She was put on linezolid Levaquin and Flagyl.? She was given two more units of blood on Jul 14. patient was extubated Jul 16 without incident.?patient subsequently transferred to intermediate care unit on 07/20. #Toxic megacolon underwent difficult re-exploration and colectomy 07/13, - stoma functioning well, liquidy stool - on regular diet, good pain control,continue oxycodone prn, scheduled Tylenol and Lidoderm patch continue Protonix, Bentyl for cramps now on room air, encourage incentive spirometry # Bright red blood per rectum likely from residual retained stools in the rectosigmoid , had 1 recurrent episode on 07/27 none since # back pain musculoskeletal improved,recommended hot pack and Flexeril daily as needed for muscle spasm #Gross anasarca improved, s/p Lasix # Hypokalemia resolved # Tachycardia - improved continue metoprolol 75 mg t.i.d. # ICU myopathy continue PT OT, plan for rehab #C diff colitis finished course of Flagyl, WBC improved #Status post septic shock secondary to perforated viscus with fecal peritonitis and fungal peritonitis, finish course of voriconazole on 07/23 # nausea / dry heaves likely due to underlying gastroparesis will DC Zofran and changed to Reglan, recommend small frequent meals Resolved issues SABINE resolved Toxic metabolic encephalopathy resolved Hypophosphatemia/hypomagnesemia resolved Left upper extremity catheter associated DVT proximal left brachial vein diagnosed on 06/27, midline catheter was removed patient treated with Lovenox subQ b.i.d. subsequently discontinued DVT prophylaxis with Lovenox Patient requires continued inpatient hospitalization for safe discharge to rehab Quality Stroke Does the patient have a stroke diagnosis?: No VTE Prior VTE?: No VTE Risk Level:: Medical - moderate - high VTE Device Contraindication: N/A - Device Ordered VTE Drug Contraindication: N/A - Med Ordered
[2022-07-30] MEDS: Metoclopramide HCl 10 MG/2 ML VIAL 5 MG IVPUSH ×2 (12:07→21:19)
--- NOTE | 2022-07-30 15:50 | P.PNGS_ITS ---
Subjective Subjective Date of Service: 07/30/22 Patient reports: feels better Interval history: The patient is seen in coverage for Dr. Hagan. She reports that she is doing well, slept very well and is feeling the best she has in recent memory. She is hopeful to be transferred to rehab and denies any chest pain, difficulty breathing or shortness of breath. Physical Exam Vital Signs: Vital Signs: Last Vital Signs Temp 97.7 F 07/30/22 11:37 Pulse 89 07/30/22 11:37 Resp 20 07/30/22 11:37 BP 133/67 07/30/22 11:37 Pulse Ox 97 07/30/22 11:37 O2 Del Method 07/30/22 11:37 O2 Flow Rate 2 07/27/22 08:00 FiO2 98 07/21/22 19:39 Oxygen Flow Rate 35 06/13/22 21:00 BMI result Body Mass Index 29.0 Patient's abdomen is soft no tenderness and ileostomy output is present. Objective Data Active Medications Acetaminophen (Acetaminophen 325 Mg Tablet) 650 mg PO TID [facility] Last Admin: 07/30/22 08:21 Dose: 650 mg Documented By: ASHLEY Heparin Sodium (Porcine) 50 (units/ Sodium Chloride 5 ml) 0 units IVFLUSH TID [facility] Last Admin: 07/30/22 08:20 Dose: 50 unit Documented By: ASHLEY Cyclobenzaprine HCl (Cyclobenzaprine Hcl 10 Mg Tablet) 10 mg PO DAILY PRN PRN Reason: back spasm Dicyclomine HCl (Dicyclomine Hcl 10 Mg Capsule) 20 mg PO TIDAC [facility] Last Admin: 07/30/22 12:07 Dose: 20 mg Documented By: ASHLEY Enoxaparin Sodium (Enoxaparin Sodium 40 Mg/0.4 Ml Syringe) 40 mg SUBCUT Q24H [facility] Last Admin: 07/23/22 07:38 Dose: 40 mg Documented By: GRISELDA Lidocaine (Lidocaine 4 % Patch Adh..Patch) 1 patch TRANSDERMA DAILY [facility]; Protocol Last Admin: 07/30/22 08:21 Dose: 1 patch Documented By: ASHLEY Loperamide HCl (Loperamide Hcl 2 Mg Capsule) 2 mg PO Q6H [facility] Last Admin: 07/30/22 12:07 Dose: 2 mg Documented By: ASHLEY Metoclopramide HCl (Metoclopramide Hcl 10 Mg/2 Ml Vial) 5 mg IVPUSH Q6H PRN PRN Reason: Nausea Last Admin: 07/30/22 12:07 Dose: 5 mg Documented By: ASHLEY Metoprolol Tartrate (Metoprolol Tartrate 25 Mg Tablet) 75 mg PO Q8H [facility]; Protocol Last Admin: 07/30/22 08:22 Dose: 75 mg Documented By: ASHLEY Patient Own Med ( (Ajovy 1.5 Ml)) 1.5 ml SUBCUT Q30D [facility] Last Admin: 07/30/22 12:07 Dose: 1.5 ml Documented By: ASHLEY Pt Own (Pantoprazole [Protonix] 40 Mg Tablet,Delayed Release (Dr/Ec)) 40 mg PO BEDTIME [facility] Last Admin: 07/29/22 22:01 Dose: 40 mg Documented By: MARYLOU Nystatin (Nystatin Powder 15 Gm Bottle) 1 appl TOPICAL BID [facility]; Protocol Last Admin: 07/30/22 08:22 Dose: 1 appl Documented By: ASHLEY Oxycodone HCl (Oxycodone Hcl Immed Release 5 Mg Tablet) 5 mg PO Q4H PRN PRN Reason: Pain, Moderate (Pain Scale 4-6 Last Admin: 07/30/22 08:22 Dose: 5 mg Documented By: ASHLEY Pharmacy Consult (Consult Rx Perform Med Rec) 1 each MISCELLANE ONCE PRN PRN Reason: Consult order Sodium Chloride (0.9 % Sodium Chloride Flush 3 Ml Syringe) 3 ml IVFLUSH QSHIFT [facility] Last Admin: 07/30/22 08:22 Dose: 3 ml Documented By: ASHLEY Sumatriptan Succinate (Sumatriptan Succinate 6 Mg/0.5 Ml Vial) 6 mg SUBCUT DAILY PRN PRN Reason: migraine headache Last Admin: 07/27/22 17:13 Dose: 6 mg Documented By: INDIRA Labs CBC & Chem 7: 07/24/22 05:57 07/24/22 05:57 Procedures Date of Service Date of Service: 07/30/22 Arterial Line Size (Gauge): 16 Progress Note: A&P Assessment and plan (1) Leukocytosis: Status: Acute (2) S/P colectomy: Status: Acute (3) Colitis due to Clostridioides difficile: Status: Acute Plan Continue present management Encourage p.o. Patient is interested in physical therapy and getting help to do more independently to try to get her strength back. Will ask PT and nursing staff to try to facilitate her care by helping rather than moving. Patient reports bruises to both are after being moved by staff by sheet into a chair yesterday. Dr. Hagan to resume care 07/31/2022 Time Spent With Patient Time: Total time spent is greater than 50% in coordination of care (as documented) at patient's floor/unit and/or counseling patient: Quality Stroke Does the patient have a stroke diagnosis?: No VTE Prior VTE?: No VTE Risk Level:: Medical - moderate - high VTE Device Contraindication: N/A - Device Ordered VTE Drug Contraindication: N/A - Med Ordered
[2022-07-31] MEDS: Metoprolol Tartrate 25 MG TABLET 75 MG PO ×3 (00:32→16:24)
[2022-07-31] MEDS: Loperamide HCl 2 MG CAPSULE PO ×4 (00:32→16:25)
[2022-07-31] MEDS: 0.9 % Sodium Chloride Flush 3 ML SYRINGE IVFLUSH ×3 (00:32→16:24)
[2022-07-31 02:53] VITALS: BP 131/61; PULSE 86; RESP 16; TEMP 36.9; O2SAT 99
[2022-07-31] MEDS: Metoclopramide HCl 10 MG/2 ML VIAL 5 MG IVPUSH ×3 (02:57→19:00)
[2022-07-31] MEDS: oxyCODONE HCl Immed Release 5 MG TABLET PO ×4 (05:56→20:41)
[2022-07-31 06:00] VITALS: BMI 27.6
[2022-07-31 08:00] VITALS: BP 130/64; PULSE 100; RESP 20; TEMP 37.1; O2SAT 96
[2022-07-31] MEDS: Lidocaine 4 % Patch ADH..PATCH 1 PATCH TRANSDERMA (08:24)
[2022-07-31] MEDS: Heparin Sodium,Porcine Flush 50 UNITS, 0.9 % Sodium Chloride Flush 5 ML IVFLUSH ×3 (08:25→20:41)
[2022-07-31] MEDS: Dicyclomine HCl 10 MG CAPSULE 20 MG PO ×3 (08:26→16:25)
[2022-07-31] MEDS: Acetaminophen 325 MG TABLET 650 MG PO ×3 (08:26→20:40)
[2022-07-31] MEDS: Nystatin Powder 15 GM BOTTLE 1 APPL TOPICAL ×2 (08:49→20:43)
--- NOTE | 2022-07-31 09:30 | P.PNGS_ITS ---
Subjective Subjective Date of Service: 07/31/22 Interval history: She states that she feels well Occasional nausea She says she is doing more with regards to PT/OT Stoma functioning well Physical Exam Vital Signs: Vital Signs: Last Vital Signs Temp 98.8 F 07/31/22 08:00 Pulse 100 07/31/22 08:00 Resp 20 07/31/22 08:00 BP 130/64 07/31/22 08:00 Pulse Ox 96 07/31/22 08:00 O2 Del Method 07/31/22 08:00 O2 Flow Rate 2 07/27/22 08:00 FiO2 98 07/21/22 19:39 Oxygen Flow Rate 35 06/13/22 21:00 BMI result Body Mass Index 27.6 Const: General: comfortable and no acute distress Resp: Other: Mild shortness of breath Cardio: Rate: regular rate GI: Other: Soft, stoma functioning well, guarding rebound Objective Data Active Medications Acetaminophen (Acetaminophen 325 Mg Tablet) 650 mg PO TID [facility] Last Admin: 07/31/22 08:26 Dose: 650 mg Documented By: LAUREN Heparin Sodium (Porcine) 50 (units/ Sodium Chloride 5 ml) 0 units IVFLUSH TID [facility] Last Admin: 07/31/22 08:25 Dose: 50 unit Documented By: LAUREN Cyclobenzaprine HCl (Cyclobenzaprine Hcl 10 Mg Tablet) 10 mg PO DAILY PRN PRN Reason: back spasm Dicyclomine HCl (Dicyclomine Hcl 10 Mg Capsule) 20 mg PO TIDAC [facility] Last Admin: 07/31/22 08:26 Dose: 20 mg Documented By: LAUREN Enoxaparin Sodium (Enoxaparin Sodium 40 Mg/0.4 Ml Syringe) 40 mg SUBCUT Q24H [facility] Last Admin: 07/23/22 07:38 Dose: 40 mg Documented By: GRISELDA Lidocaine (Lidocaine 4 % Patch Adh..Patch) 1 patch TRANSDERMA DAILY [facility]; Protocol Last Admin: 07/31/22 08:24 Dose: 1 patch Documented By: ALUREN Loperamide HCl (Loperamide Hcl 2 Mg Capsule) 2 mg PO Q6H [facility] Last Admin: 07/31/22 05:57 Dose: 2 mg Documented By: ISAIAH Metoclopramide HCl (Metoclopramide Hcl 10 Mg/2 Ml Vial) 5 mg IVPUSH Q6H PRN PRN Reason: Nausea Last Admin: 07/31/22 02:57 Dose: 5 mg Documented By: JONATHAN Metoprolol Tartrate (Metoprolol Tartrate 25 Mg Tablet) 75 mg PO Q8H [facility]; Protocol Last Admin: 07/31/22 08:26 Dose: 75 mg Documented By: LAUREN Patient Own Med ( (Ajovy 1.5 Ml)) 1.5 ml SUBCUT Q30D [facility] Last Admin: 07/30/22 12:07 Dose: 1.5 ml Documented By: ASHLEY Pt Own (Pantoprazole [Protonix] 40 Mg Tablet,Delayed Release (Dr/Ec)) 40 mg PO BEDTIME [facility] Last Admin: 07/30/22 21:19 Dose: 40 mg Documented By: JENNIFER Nystatin (Nystatin Powder 15 Gm Bottle) 1 appl TOPICAL BID [facility]; Protocol Last Admin: 07/31/22 08:49 Dose: 1 appl Documented By: LAUREN Oxycodone HCl (Oxycodone Hcl Immed Release 5 Mg Tablet) 5 mg PO Q4H PRN PRN Reason: Pain, Moderate (Pain Scale 4-6 Last Admin: 07/31/22 05:56 Dose: 5 mg Documented By: ISAIAH Pharmacy Consult (Consult Rx Perform Med Rec) 1 each MISCELLANE ONCE PRN PRN Reason: Consult order Sodium Chloride (0.9 % Sodium Chloride Flush 3 Ml [facility]ringe) [facility] Last Admin: 07/31/22 08:46 Dose: 3 ml Documented By: LAUREN Sumatriptan Succinate (Sumatriptan Succinate 6 Mg/0.5 Ml Vial) 6 mg SUBCUT DAILY PRN PRN Reason: migraine headache Last Admin: 07/27/22 17:13 Dose: 6 mg Documented By: INDIRA Labs CBC & Chem 7: 07/24/22 05:57 07/24/22 05:57 Procedures Date of Service Date of Service: 07/31/22 Arterial Line Size (Gauge): 16 Progress Note: A&P Assessment and plan (1) S/P colectomy: Status: Acute Assessment and Plan: Continues to improve slowly Push p.o. intake Stoma care She is markedly deconditioned Continue PT/OT Plan for rehab facility Time Spent With Patient Time: Total time spent is greater than 50% in coordination of care (as documented) at patient's floor/unit and/or counseling patient: Quality Stroke Does the patient have a stroke diagnosis?: No VTE Prior VTE?: No VTE Risk Level:: Medical - moderate - high VTE Device Contraindication: N/A - Device Ordered VTE Drug Contraindication: N/A - Med Ordered
[2022-07-31 11:11] VITALS: BP 123/63; PULSE 95; RESP 20; TEMP 36.4; O2SAT 97
[2022-07-31 13:26] LABS: COVID-19 Test Negative (Negative); IDNOW Serial# 9DB6401D
--- NOTE | 2022-07-31 13:45 | MHC.CLN ---
F/U PO INTAKE REMAINS VARIABLE PT C/O NAUSEA AT TIMES, HOWEVER FEELING BETTER OVERALL DIET RX: REGULAR-APPROPRIATE PT RECEIVING ENSURE TID PROVIDES 1050KCALS, 60G PROTEIN CONTINUE TO MONITOR PO INTAKE CLOSELY
--- NOTE | 2022-07-31 15:36 | MHC.CM.PN ---
DP: PER MD ROUNDS, PT MEDICALLY READY FOR DC. HAS BEEN ACCEPTED BY [facility] PENDING AUTH. AWAITING AUTH , PT AND SPOUSE AWARE. CM WILL CONTINUE TO FOLLOW. MD AWARE
[2022-07-31 15:46] VITALS: BP 144/67; PULSE 91; RESP 20; TEMP 36.2; O2SAT 98
--- NOTE | 2022-07-31 16:11 | HO.PM.IMPN ---
Subjective Subjective Date of Service: 07/31/22 Interval History: complaining of urinary burning times couple days since Marie catheter was removed also noted to have some fresh blood this morning, denies fever chills no other acute issues, urinalysis unremarkable Review of Systems General no headache no dizziness no fever chills. CVS no chest pain, no palpitation. Respiratory no cough no sob. Gastrointestinal nausea, no vomiting, no abdominal pain Review of Systems: Yes all other systems are reviewed and are negative Physical Exam Vital Signs: Vital Signs: Last Vital Signs Temp 97.2 F 07/31/22 15:46 Pulse 91 07/31/22 15:46 Resp 20 07/31/22 15:46 BP 144/67 H 07/31/22 15:46 Pulse Ox 98 07/31/22 15:46 O2 Del Method 07/31/22 15:46 O2 Flow Rate 2 07/27/22 08:00 FiO2 98 07/21/22 19:39 Oxygen Flow Rate 35 06/13/22 21:00 BMI result Body Mass Index 27.6 Const: Other: Gen:? Awake alert, no distress Neck: supple, no JVD Lungs: clear to auscultation bilaterally Heart: regular,no murmurs Abd: soft, stoma with soft stool,dressing to mid abdomen, no drainage, bowel sounds audible Ext:?? minimal swelling both feet Skin: warm/well-perfused Neuro: alert and oriented x3, no focal findings Psych: appropriate affect Objective Data Active Medications Acetaminophen (Acetaminophen 325 Mg Tablet) 650 mg PO TID [facility] Last Admin: 07/31/22 14:41 Dose: 650 mg Documented By: LAUREN Heparin Sodium (Porcine) 50 (units/ Sodium Chloride 5 ml) 0 units IVFLUSH TID [facility] Last Admin: 07/31/22 14:41 Dose: 50 unit Documented By: LAUREN Cyclobenzaprine HCl (Cyclobenzaprine Hcl 10 Mg Tablet) 10 mg PO DAILY PRN PRN Reason: back spasm Dicyclomine HCl (Dicyclomine Hcl 10 Mg Capsule) 20 mg PO TIDAC [facility] Last Admin: 07/31/22 10:23 Dose: 20 mg Documented By: LAUREN Enoxaparin Sodium (Enoxaparin Sodium 40 Mg/0.4 Ml Syringe) 40 mg SUBCUT Q24H [facility] Last Admin: 07/23/22 07:38 Dose: 40 mg Documented By: GRISELDA Loperamide HCl (Loperamide Hcl 2 Mg Capsule) 2 mg PO Q6H [facility] Last Admin: 07/31/22 10:24 Dose: 2 mg Documented By: LAUREN Metoclopramide HCl (Metoclopramide Hcl 10 Mg/2 Ml Vial) 5 mg IVPUSH Q6H PRN PRN Reason: Nausea Last Admin: 07/31/22 12:32 Dose: 5 mg Documented By: LAUREN Metoprolol Tartrate (Metoprolol Tartrate 25 Mg Tablet) 75 mg PO Q8H GAUDENCIO; Protocol Last Admin: 07/31/22 08:26 Dose: 75 mg Documented By: LAUREN Patient Own Med ( (Ajovy 1.5 Ml)) 1.5 ml SUBCUT Q30D [facility] Last Admin: 07/30/22 12:07 Dose: 1.5 ml Documented By: ASHLEY Pt Own (Pantoprazole [Protonix] 40 Mg Tablet,Delayed Release (Dr/Ec)) 40 mg PO BEDTIME [facility] Last Admin: 07/30/22 21:19 Dose: 40 mg Documented By: JENNIFER Nystatin (Nystatin Powder 15 Gm Bottle) 1 appl TOPICAL BID [facility]; Protocol Last Admin: 07/31/22 08:49 Dose: 1 appl Documented By: LAUREN Oxycodone HCl (Oxycodone Hcl Immed Release 5 Mg Tablet) 5 mg PO Q4H PRN PRN Reason: Pain, Moderate (Pain Scale 4-6 Last Admin: 07/31/22 10:23 Dose: 5 mg Documented By: LAUREN Pharmacy Consult (Consult Rx Perform Med Rec) 1 each MISCELLANE ONCE PRN PRN Reason: Consult order Sodium Chloride (0.9 % Sodium Chloride Flush 3 Ml Syringe) 3 ml IVFLUSH QSHIFT [facility] Last Admin: 07/31/22 08:46 Dose: 3 ml Documented By: LAUREN Sumatriptan Succinate (Sumatriptan Succinate 6 Mg/0.5 Ml Vial) 6 mg SUBCUT DAILY PRN PRN Reason: migraine headache Last Admin: 07/27/22 17:13 Dose: 6 mg Documented By: INDIRA Labs CBC & Chem 7: 07/24/22 05:57 07/24/22 05:57 Labs: Laboratory Results - last 24 hr 07/31/22 12:40 COVID-19 ([facility]) Negative COVID-19 Clin Com See Note Assessment and Plan (1) S/P colectomy: Status: Acute (2) Megacolon, toxic: Status: Acute (3) Hemorrhagic shock: Status: Acute (4) Tachycardia: Status: Acute (5) Crohn's disease: Status: Acute (6) Status post colostomy: Status: Acute Plan 62-year-old female who was initially admitted to the hospital on 05/18 22 with colitis/ Crohn's flare, she had a flex sig showed perforation with abscesses, taken to OR for ex lap with colostomy after found to have extensive fecal soilage in peritoneum, she was severely septic, she was sent to the ICU and intubated, course and was complicated by multiple intra-abdominal abscesses causing fevers with multiple drains placed by IR. She was then transitioned to 2 fees and then to oral diet. Currently on oral diet. On Jul 13 pt taken to the OR for E-lap and 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 The procedure was extremely difficult and prolonged 2? adhesions, and was complicated by multiple enterotomies which were primarily closed.? She developed progressive septic shock during the procedure, complicated by marked hypovolemia and coagulopathy.? EBL was 2000cc.? She was given multiple units of blood, FFP, and cryo. Postoperatively, she was transferred to the ICU.? Postop echo but Dr. Pinedo still showed hyperdynamic LV function with no significant RV dysfunction.? She was put on linezolid Levaquin and Flagyl.? She was given two more units of blood on Jul 14. patient was extubated Jul 16 without incident.?patient subsequently transferred to intermediate care unit on 07/20. #Toxic megacolon underwent difficult re-exploration and colectomy 07/13, - stoma functioning well, liquidy stool - on regular diet, good pain control,continue oxycodone prn, scheduled Tylenol continue Protonix, Bentyl for cramps now on room air, encourage incentive spirometry # Bright red blood per rectum likely from residual retained stools in the rectosigmoid , had 1 recurrent episode on 07/27 none since # back pain musculoskeletal improved,recommended hot pack and Flexeril prn daily as needed for muscle spasm #Gross anasarca improved, s/p Lasix # Hypokalemia resolved # Tachycardia - improved continue metoprolol 75 mg t.i.d. # ICU myopathy continue PT OT, plan for rehab #C diff colitis finished course of Flagyl, WBC improved #Status post septic shock secondary to perforated viscus with fecal peritonitis and fungal peritonitis, finish course of voriconazole on 07/23 # nausea / dry heaves likely due to underlying gastroparesis will DC Zofran and changed to Reglan, recommend small frequent meals Resolved issues SABINE resolved Toxic metabolic encephalopathy resolved Hypophosphatemia/hypomagnesemia resolved Left upper extremity catheter associated DVT proximal left brachial vein diagnosed on 06/27, midline catheter was removed patient treated with Lovenox subQ b.i.d. subsequently discontinued DVT prophylaxis with Lovenox Patient requires continued inpatient hospitalization for safe discharge to rehab,Likely will be discharged to rehab facility tomorrow, COVID test negative Quality Stroke Does the patient have a stroke diagnosis?: No VTE Prior VTE?: No VTE Risk Level:: Medical - moderate - high VTE Device Contraindication: N/A - Device Ordered VTE Drug Contraindication: N/A - Med Ordered
[2022-07-31 17:54] LABS: Appearance Urine Clear; Color Urine Yellow; Glucose Urine UA Negative (Negative); Leukocyte Esterase Urine Moderate (2+) (Negative); Nitrite Urine Positive (Negative); PH 5.5 (5.0-9.0); Specific Gravity - Urine 1.015 (1.005-1.025); UMIC TRIGGER UACC YES; Urine Blood Large (3+) (Negative); Urine Ketones Negative (Negative); Urine Protein 100 (2+) mg/dL (Neg-Trace)
[2022-07-31 17:56] LABS: Bacteria Urine 4+ (None Seen); Hyaline Casts Urine 0-2 /LPF (0-2); RBC Urine >20 /HPF (0-2); UACC Culture Trigger YES; WBC Urine 21-50 /HPF (0-5)
[2022-07-31 20:00] VITALS: BP 135/62; PULSE 100; RESP 20; TEMP 36.9; O2SAT 96
[2022-08-01] VITALS: BP 133/66; PULSE 98; RESP 15; TEMP 36.5; O2SAT 96
[2022-08-01] MEDS: Metoprolol Tartrate 25 MG TABLET 75 MG PO ×3 (00:16→18:25)
[2022-08-01] MEDS: Loperamide HCl 2 MG CAPSULE PO ×4 (00:16→18:25)
[2022-08-01] MEDS: oxyCODONE HCl Immed Release 5 MG TABLET PO ×2 (00:16→08:46)
[2022-08-01] MEDS: 0.9 % Sodium Chloride Flush 3 ML SYRINGE IVFLUSH ×2 (00:24→08:45)
[2022-08-01 03:08] VITALS: BP 136/63; PULSE 89; RESP 15; TEMP 36.5; O2SAT 97
[2022-08-01 06:00] VITALS: BMI 27.5
[2022-08-01] MEDS: Metoclopramide HCl 10 MG/2 ML VIAL 5 MG IVPUSH ×3 (06:08→18:30)
[2022-08-01 07:26] VITALS: BP 135/60; PULSE 96; RESP 20; TEMP 36.8; O2SAT 97
--- NOTE | 2022-08-01 07:48 | P.DS_ITS ---
DS: Providers Provider Date of Service: 08/01/22 Date of admission: 05/18/22 18:25 Date of discharge: 08/01/22 Primary care physician: Deandre Younger MD Consults: 05/18/22 17:08 Consult to Gastroenterology Stat Consulting Provider: Shamar Leiva Reason for consultation: Sigmoid colitis and proctitis, history of Crohn's disease Has provider been notified: Yes 05/18/22 18:23 Consult to General Surgery Routine Consulting Provider: Sean Kruger Reason for consultation: partial obstruction, constipation, abd pain, crohns Has provider been notified: No 05/19/22 14:16 Consult to Gastroenterology Routine Consulting Provider: Ramu Peralta Reason for consultation: colitis?crohns flare, constipation, sepsis Has provider been notified: No 05/23/22 21:30 Consult to Infectious Diseases Routine Consulting Provider: Puja Nielsen Reason for consultation: perforated viscus 05/29/22 16:27 Consult to Infectious Diseases Stat Consulting Provider: Puja Nielsen Reason for consultation: NEW CASPO ORDERED 06/14/22 07:34 Consult to Infectious Diseases Routine Consulting Provider: Puja Nielsen Reason for consultation: How long to continue antibiotics? Has provider been notified: Yes 06/18/22 13:58 Consult to Hospitalist Routine Consulting Provider: Hospitalist Reason For Exam: Medical mx post sigm colectomy/perforated viscus 06/24/22 09:10 Consult to Infectious Diseases Routine Consulting Provider: Puja Nielsen Reason for consultation: PREVIOUSLY USED 06/24/22 09:12 Consult to Infectious Diseases Routine Consulting Provider: Puja Nielsen Reason for consultation: PREVIOUSLY ONE 06/24/22 09:14 Consult to Infectious Diseases Routine Consulting Provider: Puja Nielsen Reason for consultation: PREVIOUSLY ON 06/28/22 17:13 Consult to Neurology Routine Consulting Provider: [facility] Reason for consultation: hallucinations- liekly ICU related? 06/30/22 08:19 Consult to Infectious Diseases Routine Consulting Provider: Puja Nielsen Reason for consultation: recurrent fever/spsis 06/30/22 16:32 Consult to Infectious Diseases Routine Consulting Provider: Puja Nielsen Reason for consultation: cidff 07/11/22 08:10 Consult to Hematology / Oncology [place]ine [place]ing [place] [facility] Reason for consultation: cath mic [id number] DS: Diagnosis Discharge Diagnosis (1) S/P colectomy: Status: Acute (2) Megacolon, toxic: Status: Acute (3) Hemorrhagic shock: Status: Acute (4) Tachycardia: Status: Acute (5) Crohn's disease: Status: Acute (6) Status post colostomy: Status: Acute DS: Summary Hospital Course Hospital Course: 62-year-old female with history of Crohn's disease who presents to the emergency department with abdominal pain.? She was seen in the? emergency department 2 days ago with intermittent lower abdominal pain, CT scan at that time showing prominent stool and mild rectal wall thickening.? She was started on a trial of dicyclomine and discharged home.? Her abdominal pain has become progressively worse and is now persistent.? Her pain is primarily located in the right lower quadrant.? She has not had bowel movement for the past 2 days.? She has had decreased p.o. intake due to the abdominal pain.? She has nausea but denies vomiting.? She has not had any diarrhea.? She reports intermittent mucus and some stool over the past several weeks as well as intermittent low-grade fevers which she reports has been ongoing for a few months.? She has been taking mesalamine daily and previously her Crohn's disease was well controlled.? Today in the emergency department she was noted to have a temperature of 100.4 degrees, was tachycardic.? Repeat CT scan of the abdomen showed severe constipation and question of partial obstruction with worsening severe colitis of the sigmoid colon and proctitis with increased wall thickening and stranding surrounding fat.? She was treated with multiple doses of IV narcotics for adeq uate pain control, as well as IV Zosyn.? The emergency department provider discussed the case with Gastroenterology who recommended admitting the patient in starting systemic steroids. Hospital Course Seen again by Gastroenterology's; given limited response to therapies on 05/23/2022 underwent a flex sig to 30 cm which showed a large abscess cavity in the sigmoid with some ulceration. General surgery was consulted; and on 05/23/2022 underwent exploratory lap with extensive lysis of adhesions sigmoid resection with colostomy. She was admitted to ICU following her surgery secondary to shock and hypovolemic.. She continued to have a tumultuous ICU course but was ultimately transferred to the general medical floor on 06/18/2022. On 07/13/2022 patient was transferred to ICU secondary to C diff with toxic megacolon status post ex lap total colectomy with ileostomy. On 07/[place]/22 [place] [facility] [place] Over the course of the next 10 days she continue to improve tolerating more and more physical therapy. At this point in time she has been deemed medically acceptable to transfer to short-term rehab. Time Spent with Patient Time attestation: Total time spent providing and/or coordinating discharge services: Discharge coordination time: Greater than 30 minutes Quality: Safe Use of Opioids Does Pt have an Active Cancer Diagnosis on the Problem List?: No Quality: Stroke Does the patient have a stroke diagnosis?: No Physical Exam Vital Signs: Vital Signs: Last Vital Signs Temp 98.2 F 08/01/22 07:26 Pulse 96 08/01/22 07:26 Resp 20 08/01/22 07:26 BP 135/60 08/01/22 07:26 Pulse Ox 97 08/01/22 07:26 O2 Del Method 08/01/22 07:26 O2 Flow Rate 2 07/27/22 08:00 FiO2 98 07/21/22 19:39 Oxygen Flow Rate 35 06/13/22 21:00 BMI result Body Mass Index 27.5 Const: Other: Awake alert no acute distress Resp: Other: Clear to auscultation bilaterally Cardio: Other: No S4; positive S1-S2; no S3 murmurs rubs or gallops GI: Other: soft, stoma with soft stool,dressing to mid abdomen, no drainage, bowel sounds audible Extrem: Other: No edema bilaterally DS: Data Data Completed and Pending Completed studies during hospitalization [Text1]: Pending at discharge 05/23/22 12:47 Surgical [PTH] Routine 05/23/22 16:17 Surgical [PTH] Routine 07/13/22 16:05 Surgical [PTH] Routine Labs on day of discharge: Laboratory Results - last 24 hr 07/31/22 07/31/22 12:40 16:43 Urine Color Yellow Urine Appearance Clear Urine pH 5.5 Ur Specific [place] 1.015 Urine Protein 100 (2+) H Urine Glucose (UA) Negative Urine Ketones Negative Urine Blood Large (3+) H Urine Nitrite Positive H Ur Leukocyte Esterase Moderate (2+) H Urine RBC >20 H Urine WBC 21-50 H Ur Squamous Epith Cells 6-10 Urine Bacteria 4+ Hyaline Casts 0-2 COVID-19 ([facility]) Negative COVID-19 Clin Com See Note Discharge Plan Discharge Anticipated Discharge Date/Time: 08/01/22 14:00 Patient Disposition: Xfer Inpatient Rehab Fac Discharge Diagnosis: Toxic megacolon s/p colectomy. Referrals: Deandre Younger MD [Primary Care Provider] - 1 Week Discharge Medications: New Ajovy 1.5 ml subcut Q30D Qty: 3 0RF dicyclomine 10 mg Capsule 20 mg PO TIDAC Qty: 90 0RF oxycodone 5 mg Tablet 5 mg PO Q4H PRN (Reason: Pain, Moderate (Pain Scale 4-6) Qty: 30 0RF Rx Instructions: Partial Fill upon patient request. metoprolol tartrate 25 mg Tablet 75 mg PO Q8H Qty: 90 0RF Protocol: Hold for SBP/HR < HOLD for SBP < : 90 HOLD for HR < : 60 Continued loratadine [Claritin] 10 mg Tablet 10 mg PO DAILY rizatriptan 10 mg tablet 1 tab PO DAILY PRN (Reason: Migraine Headache) ondansetron 8 mg tablet,disintegrating 1 tab PO DAILY PRN (Reason: Nausea) duloxetine 60 mg capsule,delayed release(DR/EC) 1 cap PO BEDTIME mesalamine [Apriso] 0.375 gram capsule,extended release 24hr 1.5 g PO QAM methocarbamol 750 mg tablet 750 mg PO TID pantoprazole [Protonix] 40 mg tablet,delayed release (DR/EC) 40 mg PO BEDTIME Discontinued topiramate 100 mg tablet 2 tab PO BID Ajovy Syringe 225 mg/1.5 mL syringe 1.5 mg subcut Q30D Centrum Silver Women 8 mg iron-400 mcg-300 mcg tablet 1 tab PO DAILY Discharge Orders: Discharge Order (Routine); Ordered 08/01/22 Ordered By: Erick Galvin Diet: Regular diet Activity on Discharge: As tolerated Stand Alone Forms: Patient Portal Discharge page Care Plan Goals: Continue all meds as ordered Health Concerns: Physical therapy as per receiving facility Plan of Treatment: Routine ostomy care Assessment: See discharge summary
[2022-08-01] MEDS: Acetaminophen 325 MG TABLET 650 MG PO ×2 (08:34→14:02)
[2022-08-01] MEDS: Dicyclomine HCl 10 MG CAPSULE 20 MG PO ×3 (08:35→18:26)
[2022-08-01] MEDS: Heparin Sodium,Porcine Flush 50 UNITS, 0.9 % Sodium Chloride Flush 5 ML IVFLUSH ×2 (08:37→14:03)
[2022-08-01 11:32] VITALS: BP 131/72; PULSE 94; RESP 20; TEMP 36.6; O2SAT 97
--- NOTE | 2022-08-01 11:37 | PM.PNGS ---
Subjective Subjective Date of Service: 08/01/22 Interval history: continues to feel better Says she has been doing more with regards to physical therapy stoma functioning well good oral intake Physical Exam Vital Signs: Vital Signs: Last Vital Signs Temp 98.2 F 08/01/22 07:26 Pulse 96 08/01/22 07:26 Resp 20 08/01/22 07:26 BP 135/60 08/01/22 07:26 Pulse Ox 97 08/01/22 07:26 O2 Del Method 08/01/22 07:26 O2 Flow Rate 2 07/27/22 08:00 FiO2 98 07/21/22 19:39 Oxygen Flow Rate 35 06/13/22 21:00 BMI result Body Mass Index 27.5 Const: General: comfortable and no acute distress Resp: Effort & Inspection: able to speak in complete sentences Cardio: Rate: regular rate GI: Other: stoma functioning well Palpation (GI): Soft to palpation and not firm Objective Data Active Medications Acetaminophen (Acetaminophen 325 Mg Tablet) 650 mg PO TID [facility] Last Admin: 08/01/22 08:34 Dose: 650 mg Documented By: FLO Heparin Sodium (Porcine) 50 (units/ Sodium Chloride 5 ml) 0 units IVFLUSH TID [facility] Last Admin: 08/01/22 08:37 Dose: 50 unit Documented By: FLO Cyclobenzaprine HCl (Cyclobenzaprine Hcl 10 Mg Tablet) 10 mg PO DAILY PRN PRN Reason: back spasm Dicyclomine HCl (Dicyclomine Hcl 10 Mg Capsule) 20 mg PO TIDAC [facility] Last Admin: 08/01/22 08:35 Dose: 20 mg Documented By: LFO Enoxaparin Sodium (Enoxaparin Sodium 40 Mg/0.4 Ml Syringe) 40 mg SUBCUT Q24H [facility] Last Admin: 07/23/22 07:38 Dose: 40 mg Documented By: GRISELDA Loperamide HCl (Loperamide Hcl 2 Mg Capsule) 2 mg PO Q6H [facility] Last Admin: 08/01/22 06:07 Dose: 2 mg Documented By: BRENNAN Metoclopramide HCl (Metoclopramide Hcl 10 Mg/2 Ml Vial) 5 mg IVPUSH Q6H PRN PRN Reason: Nausea Last Admin: 08/01/22 06:08 Dose: 5 mg Documented By: BRENNAN Metoprolol Tartrate (Metoprolol Tartrate 25 Mg Tablet) 75 mg PO Q8H [facility]; Protocol Last Admin: 08/01/22 08:35 Dose: 75 mg Documented By: FLO Patient Own Med ( (Ajovy 1.5 Ml)) 1.5 ml SUBCUT Q30D [facility] Last Admin: 07/30/22 12:07 Dose: 1.5 ml Documented By: ASHLEY Pt Own (Pantoprazole [Protonix] 40 Mg Tablet,Delayed Release (Dr/Ec)) 40 mg PO BEDTIME [facility] Last Admin: 07/31/22 20:40 Dose: 40 mg Documented By: BRENNAN Nystatin (Nystatin Powder 15 Gm Bottle) 1 appl TOPICAL BID [facility]; Protocol Last Admin: 07/31/22 20:43 Dose: 1 appl Documented By: BRENNAN Oxycodone HCl (Oxycodone Hcl Immed Release 5 Mg Tablet) 5 mg PO Q4H PRN PRN Reason: Pain, Moderate (Pain Scale 4-6 Last Admin: 08/01/22 08:46 Dose: 5 mg Documented By: FLO Pharmacy Consult (Consult Rx Perform Med Rec) 1 each MISCELLANE ONCE PRN PRN Reason: Consult order Sodium Chloride (0.9 % Sodium Chloride Flush 3 Ml Syringe) 3 ml IVFLUSH QSHIFT [facility] Last Admin: 08/01/22 08:45 Dose: 3 ml Documented By: FLO Sumatriptan Succinate (Sumatriptan Succinate 6 Mg/0.5 Ml Vial) 6 mg SUBCUT DAILY PRN PRN Reason: migraine headache Last Admin: 07/27/22 17:13 Dose: 6 mg Documented By: INDIRA Labs CBC & Chem 7: 07/24/22 05:57 07/24/22 05:57 Labs: Laboratory Results - last 24 hr 07/31/22 07/31/22 12:40 16:43 Urine Color Yellow Urine Appearance Clear Urine pH 5.5 Ur Specific [place] 1.015 Urine Protein 100 (2+) H Urine Glucose (UA) Negative Urine Ketones Negative Urine Blood Large (3+) H Urine Nitrite Positive H Ur Leukocyte Esterase Moderate (2+) H Urine RBC >20 H Urine WBC 21-50 H Ur Squamous Epith Cells 6-10 Urine Bacteria 4+ Hyaline Casts 0-2 COVID-19 ([facility]) Negative COVID-19 Clin Com See Note Procedures Date of Service Date of Service: 08/01/22 Arterial Line Size (Gauge): 16 Progress Note: A&P Assessment and plan (1) S/P colectomy: Status: Acute Assessment and Plan: continues to make steady progress now spending more time on the recliner push oral intake stoma care monitor for excessive fluid losses from the ileostomy looks well awaiting placement to rehab Time Spent With Patient Time: Total time spent is greater than 50% in coordination of care (as documented) at patient's floor/unit and/or counseling patient: Quality Stroke Does the patient have a stroke diagnosis?: No VTE Prior VTE?: No VTE Risk Level:: Medical - moderate - high VTE Device Contraindication: N/A - Device Ordered VTE Drug Contraindication: N/A - Med Ordered
[2022-08-01] MEDS: Nystatin Powder 15 GM BOTTLE 1 APPL TOPICAL (11:56)
[2022-08-01 12:25] VITALS: BP 131/72; PULSE 94; O2SAT 97
--- NOTE | 2022-08-01 14:26 | MHC.CM.PN ---
DP: PT MEDICALLY CLEARED FOR DC. AUTHORIZATION OBTAINED FROM [facility] FOR ADMISSION TO [facility]. PT/SPOUSE UPDATED. RN MADE AWARE. BLS BOOKED FOR 4 PM TRANSFER [facility]IA [facility].
[2022-08-01 15:03] VITALS: BP 131/60; PULSE 78; RESP 18; TEMP 36.9; O2SAT 98
--- NOTE | 2022-08-01 17:23 | PC.NURSE ---
unable to urinate for hrs , she stated that lat time she was incontinent it was at night time . spoke with DR. Galvin , order for st. cath obtained , st cath for 200 ml yellow urine
== END 2022-08-01 19:12 | DRG 221 ==
LOC: HO.ED 17:19 → HO.EDOVER 18:32 → HO.IMC 05-19 17:57 → HO.EDOVER 05-19 17:59 → HO.IMC 05-19 18:01 → HO.S3 05-21 15:14 → HO.IMC 05-23 06:07 → HO.ICU 05-23 16:19 → HO.IMC 06-18 16:34 → HO.ICU 07-13 09:55 → HO.IMC 07-20 17:00
PROVIDERS: Anesthesiology; Family Medicine; Hospitalist; Internal Medicine; Internal Medicine Cardiovascular Disease; Internal Medicine Gastroenterology; Internal Medicine Pulmonary Disease; Nurse Practitioner Acute Care; Nurse Practitioner Family; Physician Assistant; Physician Assistant Medical; Radiology Diagnostic Radiology; Registered Nurse Community Health; Surgery; Admitting Provider Physician Assistant Medical; Emergency Provider Emergency Medicine Emergency Medical Services; PCP Internal Medicine; Visit Provider Hospitalist
PROC: 0DJD8ZZ Inspection of Lower Intestinal Tract, Via Natural or Artificial Opening Endoscopic (ICD-10-PCS; CPT 45378; principal; 2022-05-23 11:20)
PROC: 0D1N0Z4 Bypass Sigmoid Colon to Cutaneous, Open Approach (ICD-10-PCS; CPT 49320; principal; 2022-05-23 15:00)
PROC: 0W9J30Z Drainage of Pelvic Cavity with Drainage Device, Percutaneous Approach (ICD-10-PCS; principal; 2022-05-30 16:00)
PROC: 0DBL0ZZ Excision of Transverse Colon, Open Approach (ICD-10-PCS; CPT 49000; principal; 2022-07-13 09:30)
DX: K63.1 Perforation of intestine (nontraumatic) (principal); J95.821 Acute postprocedural respiratory failure; G72.81 Critical illness myopathy; G92.8 Other toxic encephalopathy; A41.9 Sepsis, unspecified organism; K65.9 Peritonitis, unspecified; B37.89 Other sites of candidiasis; K50.914 Crohn's disease, unspecified, with abscess; E87.3 Alkalosis; D69.59 Other secondary thrombocytopenia; E87.0 Hyperosmolality and hypernatremia; K56.7 Ileus, unspecified; E86.1 Hypovolemia; K50.912 Crohn's disease, unspecified, with intestinal obstruction; R33.9 Retention of urine, unspecified; D64.9 Anemia, unspecified; E66.9 Obesity, unspecified; Z68.27 Body mass index [BMI] 27.0-27.9, adult; B96.20 Unspecified Escherichia coli [E. coli] as the cause of diseases classified elsewhere; L50.9 Urticaria, unspecified; T81.12XA Postprocedural septic shock, initial encounter; B96.7 Clostridium perfringens [C. perfringens] as the cause of diseases classified elsewhere; K62.89 Other specified diseases of anus and rectum; E83.42 Hypomagnesemia; D72.829 Elevated white blood cell count, unspecified; N28.9 Disorder of kidney and ureter, unspecified; E83.39 Other disorders of phosphorus metabolism; F05 Delirium due to known physiological condition; G43.909 Migraine, unspecified, not intractable, without status migrainosus; R73.9 Hyperglycemia, unspecified; K68.11 Postprocedural retroperitoneal abscess; E87.6 Hypokalemia; T82.818A Embolism due to vascular prosthetic devices, implants and grafts, initial encounter; A04.72 Enterocolitis due to Clostridium difficile, not specified as recurrent; R00.0 Tachycardia, unspecified; D62 Acute posthemorrhagic anemia; K50.911 Crohn's disease, unspecified, with rectal bleeding; T83.098A Other mechanical complication of other urinary catheter, initial encounter; Y74.1 Therapeutic (nonsurgical) and rehabilitative general hospital and personal-use devices associated with adverse incidents; I82.622 Acute embolism and thrombosis of deep veins of left upper extremity; K66.0 Peritoneal adhesions (postprocedural) (postinfection); J80 Acute respiratory distress syndrome; K59.00 Constipation, unspecified; Z88.5 Allergy status to narcotic agent; Z87.891 Personal history of nicotine dependence; Z88.6 Allergy status to analgesic agent; Z79.899 Other long term (current) drug therapy
CPT/HCPCS: 36410; 36415; 36573; 36600; 49406; 71045; 71250; 74018; 74176; 74177; 75635; 80048; 80053; 80076; 80202; 81001; 81003; 82040; 82272; 82565; 82803; 82947; 83036; 83605; 83615; 83690; 83735; 83880; 84100; 84132; 84145; 84300; 84443; 84478; 85007; 85014; 85018; 85025; 85027; 85384; 85610; 85652; 85730; 86022; 86140; 86850; 86900; 86901; 86923; 87040; 87070; 87071; 87073; 87076; 87077; 87086; 87102; 87106; 87185; 87186; 87205; 87324; 87493; 87507; 87635; 88305; 88307; 88309; 89055; 92526; 92610; 93005; 93306; 93926; 93971; 94002; 94003; 97110; 97163; 97167; 97530; 99285; C1729; C1751; C1758; C1894; J0131; J0171; J0610; J0637; J0692; J1100; J1170; J1200; J1250; J1364; J1642; J1650; J1940; J1956; J2020; J2185; J2250; J2270; J2370; J2405; J2543; J2765; J2795; J2997; J3010; J3030; J3031; J3370; J3465; J3475; P9012; P9016; P9017; P9035; P9047; Q4186; Q9967

== ENCOUNTER 2022-08-05 10:57 | Inpatient (IN) | payer OTHER, SELFPAY ==
--- NOTE | ~2022-08-05 | CT_ITS ---
PROCEDURE: CT GUIDED ABSCESS DRAINAGE CLINICAL INFORMATION: Non-resolving abscess in spite of drainage catheter. COMPARISON: CT abdomen and pelvis 08/10/2022 and 07/30/2022. TECHNIQUE: Following explaining CT fluoroscopy-guided placement of a second large bore drainage catheter into peritoneal abscess procedure, benefits and risks, a written consent was obtained. Patient was placed supine on CT fluoroscopy table and preliminary CT imaging was obtained. Markers were placed along the right midabdomen and repeat imaging was performed. A site was selected along the midabdomen and marked on the skin. The marked area was cleaned and draped in the usual sterile manner. 1% lidocaine was injected at the puncture site. Through a small skin incision, a 5 Niuean Yueh catheter was advanced into the midline peritoneal collection from the right side. After CT fluoroscopy imaging and observing Yueh catheter within the peritoneal abscess, the stylet was withdrawn and a 0.035 J-wire was advanced into the peritoneal abscess. The Yueh catheter was removed and a 14 Niuean APD catheter with stylet was inserted over the guidewire and placed in the abscess. The guidewire and the stiffener were withdrawn and imaging was performed subsequently. A 3-way stopcock was placed at the catheter tip and as much as 50-100 mL of pus was removed into a bag. The catheter was then anchored to the skin with 3-0 nonabsorbable nylon sutures and dressing. The catheter was connected to vacuum grenade via connecting cannula. Patient tolerated the procedure well. Intravenous conscious sedation was administered by IV nursing. Patient was monitored by the radiologist and IV nursing during the entire exam. This CT examination was performed using dose optimization techniques as appropriate, variously including the following: *Automated exposure control *Adjustment of mA and/or kV according to patient size (this includes techniques or standardized protocols for targeted exams where dose is matched to indication/reason for exam; i.e. extremities or head) *Use of iterative reconstruction technique DLP: 498 mGy-cm. FINDINGS: On preliminary CT imaging, there is a left side inserted catheter with its tip in the left peritoneal collection. The size of the collection remains similar to the exam of 08/10/2022. A second large bore APD catheter was inserted through a right-sided abdominal approach and its tip lies in the left peritoneal collection. There is crisscrossing of both catheters making sure there is adequate drainage bilaterally. CT/CT guided drainage IMPRESSION: Successful CT fluoroscopy-guided placement of a large bore 14 Niuean APD catheter with a right abdominal approach and its tip lying within the left abdomen.
--- NOTE | ~2022-08-05 | CT_ITS ---
EXAMINATION: CT ABDOMEN AND PELVIS WITH CONTRAST CLINICAL INFORMATION: Follow-up intra-abdominal fluid collection COMPARISON: 08/10/2022 TECHNIQUE: Multidetector volumetric images were obtained from the superior aspect of the liver through the pubic symphysis following administration 85 mL of Omnipaque 350 intravenous contrast. Sagittal and coronal reformatted images were obtained on the technologist's workstation. Oral contrast: No This CT examination was performed using dose optimization techniques as appropriate, variously including the following: *Automated exposure control *Adjustment of mA and/or kV according to patient size (this includes techniques or standardized protocols for targeted exams where dose is matched to indication/reason for exam; i.e. extremities or head) *Use of iterative reconstruction technique DLP: 512 mGy-cm FINDINGS: LUNG BASES: Small right trace left pleural effusions improved from the prior study. There is some residual atelectasis in the right middle lobe. LIVER, GALLBLADDER, AND BILIARY TREE: No new focal liver lesion. Again seen is a crescent-shaped fluid collection scalloping the anterior margin of the lateral segment of left lobe of liver in the left upper quadrant. There is a thick peripheral rim of enhancement. Fluid collection including the peripheral rim measures 10.3 x 3.6 cm compared to 10.7 x 3.0 cm previously. Status post cholecystectomy. The common bile duct is dilated to 1 cm. PANCREAS: Unremarkable. SPLEEN: Unremarkable. ADRENAL GLANDS: Unremarkable. KIDNEYS AND URETERS: The kidneys are normal in size, shape, and attenuation. No hydronephrosis, hydroureter, or calculi seen. No perinephric stranding. BLADDER: Unremarkable. GASTROINTESTINAL TRACT: Stomach is partially distended. Multiple small bowel anastomoses are present predominantly in the left abdomen. Again seen is a right lower quadrant ileostomy. The patient is status post colectomy. The rectum appears to remain in place, query prior Callie pouch. No evidence of bowel obstruction. PERITONEAL CAVITY AND ABDOMINAL WALL: As described above, there is a similar appearance of the left upper quadrant subcapsular perihepatic collection not convincingly changed. This may communicate via a thin enhancing tract with a small collection of fluid and gas in the left anterior mid abdomen measuring 1.7 x 1.6 cm in image 37/94. More inferiorly, this does communicate with an irregular you shaped collection in the anterior abdomen. The unusual shape is best appreciated on coronal image 24/77. The collection measures up to 16.3 cm transverse, up to 3 cm anterior to posterior and 14.4 cm craniocaudal. There is a large bore surgical drain within the collection that enters the abdomen to the right of the umbilicus. There is an additional pigtail percutaneous drainage catheter that enters the abdomen in the left lower quadrant and loops within the inferior aspect of the collection. In total, these collections are only slightly smaller than they were on the prior study 08/10/2022. There does appear to be greater degree of peripheral rim enhancement. Numerous foci of gas are again noted. Ill-defined fluid and gas in the anterior abdomen, that appears to communicate with the larger collection in the surgical drain extends contiguously through the anterior abdominal wall to the umbilicus. Recommend correlation with physical exam; the appearance is concerning for a fistula particularly if there is drainage from the skin surface in the region of the umbilicus. There are several additional areas of ill-defined mesenteric fluid with scattered foci of gas in keeping with the surgical drains. The right lower quadrant ileostomy remains in place. There is stranding at the site of the prior colostomy. LYMPH NODES: Normal. VASCULAR: Normal caliber abdominal aorta. Splenic varices. PELVIC VISCERA: Prominent bilateral pelvic vascularity suggests pelvic congestion. OSSEOUS STRUCTURES: Minimal grade 1 anterolisthesis L4 on L5. CT/CT abdomen pelvis w IV con IMPRESSION: Large complex multiloculated fluid collection in the anterior abdomen with [address] is only slightly decreased in size from the prior study. There is increasing although still incomplete peripheral rim enhancement of this dominant collection. The dominant collection communicates with a subcapsular collection scalloping the left lobe of liver and the spleen with thick peripheral rim enhancement which is not significantly changed in size and presumably and drained. Fluid extends directly from the dominant collection through the anterior abdominal wall to the skin surface in the region of the umbilicus highly suspicious for a fistula.
--- NOTE | ~2022-08-05 | CT_ITS ---
PROCEDURE: CT GUIDED ABSCESS DRAINAGE CLINICAL INFORMATION: Intra-abdominal abscess. COMPARISON: Previous CT of the abdomen and pelvis most recent 08/05/2022. TECHNIQUE: Procedure and risks and benefits including bleeding, infection and injury to the bowel or adjacent organs was discussed with the patient and informed consent was obtained. The left lower quadrant was prepped and draped in the usual sterile fashion. The skin and soft tissues were anesthetized with 1% lidocaine plain. Using CT guidance and a 5-Togolese Yueh needle, access to the fluid collection just deep to the abdominal wall was obtained. Over an .035 guidewire and following serial dilatation, a 12-Togolese pigtail drainage catheter was positioned. Approximately 40 mL of brown thick purulent-appearing fluid was aspirated. Specimen was sent for Gram stain and culture. The patient received Versed 2 mg and fentanyl 100 mcg intravenously during the procedure. Conscious sedation was provided by a registered nurse under my direct supervision with continuous hemodynamic monitoring and nyal-ay-hyhr contact time of [address] examination was performed using dose optimization techniques as appropriate, variously including the following: *Automated exposure control *Adjustment of mA and/or kV according to patient size (this includes techniques or standardized protocols for targeted exams where dose is matched to indication/reason for exam; i.e. extremities or head) *Use of iterative reconstruction technique DLP: 159 mGy-cm FINDINGS: Images demonstrate a drainage catheter in the collection just deep to the abdominal wall in the left lower quadrant. CT/CT guided drainage IMPRESSION: CT-guided 12-Togolese left lower quadrant abscess drain placement.
--- NOTE | ~2022-08-05 | CT_ITS ---
PROCEDURE: CT GUIDED ASPIRATION, FINE NEEDLE, WITH IMAGE GUIDANCE CLINICAL INFORMATION: Intra-abdominal collections with [address]. COMPARISON: 08/11/2022 and studies dating back to 06/13/2022. TECHNIQUE: Abdominal drainage catheters check with contrast injection through the catheters. This CT examination was performed using dose optimization techniques as appropriate, variously including the following: *Automated exposure control *Adjustment of mA and/or kV according to patient size (this includes techniques or standardized protocols for targeted exams where dose is matched to indication/reason for exam; i.e. extremities or head) *Use of iterative reconstruction technique A trained medical provider was monitoring the patient's vital signs under their supervision and the duration of the face to face sedation time was 29 minutes. DLP: 408 mGy-cm FINDINGS: Informed consent was obtained from the patient prior to the procedure. During this process, the procedure and potential alternatives were explained, along with the intended outcome and benefits. The risks of the procedure, as well as the risk of not doing the procedure, were discussed. The patient was given the opportunity to ask questions regarding the procedure and appeared competent to make medical decisions. A signed consent form which documents this discussion was placed in the medical record. Preliminary CT scan demonstrates a small right pleural effusion and trace left pleural effusion. [place]-shaped fluid collection without air is again seen adjacent to the spleen without change. The left-sided drainage catheter was checked first using sterile technique with aspiration of approximately 20 mL of cloudy fluid likely representing flush with a small amount of purulent fluid. The catheter was flushed and noted to be widely patent. The right-sided drainage catheter was then aspirated with approximately 5 mm of purulent-appearing fluid being aspirated. Catheter was flushed and was noted to be widely patent. At this point, both drainage catheters were injected with 50 mL of diluted Omnipaque 350 in a 1:5 concentration with normal saline. The contrast is seen to communicate with the major collections with 1 collection about the right abdomen only being coated peripherally probably due to its thick status. 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 No drainage was performed at this point. CT/CT guided aspiration IMPRESSION: Both abdominal drainage catheters seen to be patent. Major regions of collection are being drained as described. 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
--- NOTE | ~2022-08-05 | CT_ITS ---
EXAMINATION: CT ABDOMEN AND PELVIS WITH CONTRAST CLINICAL INFORMATION: Intra-abdominal abscess. COMPARISON: 08/07/2022 and studies dating back to 06/13/2022. TECHNIQUE: Multidetector volumetric images were obtained from the superior aspect of the liver through the pubic symphysis following administration 85 mL of Omnipaque 350 intravenous contrast. Sagittal and coronal reformatted images were obtained on the technologist's workstation. Oral contrast: No This CT examination was performed using dose optimization techniques as appropriate, variously including the following: *Automated exposure control *Adjustment of mA and/or kV according to patient size (this includes techniques or standardized protocols for targeted exams where dose is matched to indication/reason for exam; i.e. extremities or head) *Use of iterative reconstruction technique DLP: 998 mGy-cm FINDINGS: LUNG BASES: There is a moderate right pleural effusion and small left pleural effusion. No pericardial effusion is identified. There is some bibasilar atelectasis. Findings are similar to 08/05/2022. LIVER, GALLBLADDER, AND BILIARY TREE: The liver is normal in size, shape, and attenuation. No focal hepatic lesion or biliary ductal dilatation is present. Status post cholecystectomy. PANCREAS: Unremarkable. SPLEEN: Unremarkable. ADRENAL GLANDS: Unremarkable. KIDNEYS AND URETERS: The kidneys are normal in size, shape, and attenuation. No hydronephrosis, hydroureter, or calculi seen. No perinephric stranding. BLADDER: Unremarkable. GASTROINTESTINAL TRACT: Patient status post colectomy with ostomy within the right lower quadrant. There is some herniated fat seen along the ostomy tract but without parastomal bowel herniation. There is again noted to be a crescent-shaped fluid collection without air bubbles within it lateral to the spleen measuring approximately 10.1 x 2.2 x 7.8 cm in size. The large anterior abdominal collection just below the abdominal wall containing a drainage catheter within its inferior left lateral portion is seen in place. No significant change is appreciated from study of 08/05/2022. There is inferior extension of this collection laterally and bilaterally. The collection measures approximately 19.3 x 4.6 x 19 cm. The air bubbles within the collection are not all nondependent and the collection is likely thick material with gas interspersed within it. The collection extends into an umbilical hernia similar to previous study. There is noted to be some stable regions of streaking about the lateral aspects extending into the pelvis. The collection containing gas superior to the urinary bladder appears a little smaller in size with less gas within it. There is a question as to whether this does communicate with the more superior larger collection. No new significant collection is appreciated. ABDOMINAL WALL: Right lower quadrant ostomy. There is again noted to be a left anterior subcutaneous collection with question fistulous tract to the collection along the umbilical/paraumbilical hernia. This appears unchanged from study of 08/05/2022. LYMPH NODES: No significant lymphadenopathy appreciated. VASCULAR: Unremarkable. PELVIC VISCERA: No significant free fluid is identified. There are prominent uterine veins bilaterally. OSSEOUS STRUCTURES: No suspicious destructive bony abnormality identified. CT/CT abdomen pelvis w IV con IMPRESSION: Stable appearance of the abdomen and pelvis with continued gas and fluid and drainage catheter in place. Air bubbles are not all nondependent and are interspersed within the material with the material likely being thickened and may not be drainable by catheter drainage. Stable bilateral pleural effusions. Stable periumbilical hernia in communication with the fluid collection. Left anterior abdominal wall subcutaneous collection without change and with question of fistulous tract to the hernia. Fleischner guidelines were followed.
--- NOTE | ~2022-08-05 | CT_ITS ---
EXAMINATION: CT ABDOMEN AND PELVIS WITH CONTRAST CLINICAL INFORMATION: Infection at surgical site. Previous total colectomy and previous colostomy. COMPARISON: CT abdomen and pelvis 07/12/2022. TECHNIQUE: Multidetector volumetric images were obtained from the superior aspect of the liver through the pubic symphysis following administration 85 mL of Omnipaque 350 intravenous contrast. Sagittal and coronal reformatted images were obtained on the technologist's workstation. Oral contrast: No This CT examination was performed using dose optimization techniques as appropriate, variously including the following: *Automated exposure control *Adjustment of mA and/or kV according to patient size (this includes techniques or standardized protocols for targeted exams where dose is matched to indication/reason for exam; i.e. extremities or head) *Use of iterative reconstruction technique DLP: 870 mGy-cm FINDINGS: LUNG BASES: There are bilateral pleural effusions moderate on the right with underlying atelectasis. Heart size is normal. LIVER, GALLBLADDER, AND BILIARY TREE: The liver is normal in size, shape, and attenuation. There is mild common hepatic duct prominence and common bile duct prominence. The gallbladder has been surgically removed with jazmine in place. PANCREAS: Unremarkable SPLEEN: Unremarkable ADRENAL GLANDS: Unremarkable KIDNEYS AND URETERS: The kidneys are normal in size, shape, and attenuation. No hydronephrosis, hydroureter, or calculi seen. No perinephric stranding. BLADDER: Unremarkable GASTROINTESTINAL TRACT: There is a large amount of fluid collection with gas in the midabdomen consistent abscess. This extends superiorly in the left parasplenic space and inferiorly into the upper pelvis where there is more gas collection. The abscess measures 18 cm in length, 20 cm wide and 5 cm in AP dimension. The colon is completely removed. The small bowel loops are nondistended. ABDOMINAL WALL: There are extensive surgical changes along the midline lower abdominal wall and right para midline anterior abdominal wall ileostomy. There is herniation of fat along the ileostomy stoma. Small right paraumbilical hernia containing the abscess is noted. LYMPH NODES: There are reactive lymph nodes present. The aorta is of normal caliber. VASCULAR: The abdominal aorta is of normal caliber. PELVIC VISCERA: No free fluid or free air is seen. The uterus is anteverted and appears unremarkable. OSSEOUS STRUCTURES: Unremarkable CT/CT abdomen pelvis w IV con IMPRESSION: Large intraperitoneal abscess extending approximately 18 cm wide and craniocaudad in length from upper abdomen to the mid pelvis region. A drain is to be placed on Sunday. Patient is status post total colectomy and right mid abdomen ileostomy. Results were discussed with Dr. Megha Ralph after the exam. Fleischner guidelines were followed.
--- NOTE | 2022-08-05 11:01 | ED.GENADULT ---
HPI - General Adult General Chief complaint: Abdominal Pain Stated complaint: ABD PAIN, RECENT ABD SURGERY Time Seen by Provider: 08/05/22 11:01 Source: patient and EMS Mode of arrival: EMS Limitations: no limitations History of Present Illness HPI narrative: Patient is a 62 year old assigned female at with an extensive medical history including a recent admission s/p colectomy and subsequent c.diff infection presenting to the emergency department today with concern of abdominal incision infection and increasing abdominal pain. Patient states that she was discharged to a rehab facility 4 days ago from here and while she's been there, the nursing staff has become concerned about her surigical incision and she has been having more pain around the area. Patient denies any dizziness, lightheadedness, nausea, vomiting, fever, chills, blurry vision, double vision, loss of vision, chest pain, difficulty breathing, shortness of breath, back pain, night sweats, pain with urination, increased urinary frequency, increased urinary urgency, blood in her urine or stool, syncope or a near syncopal episode, recent trauma or falls, bowel incontinence, bladder incontinence, bowel retention, bladder retention, or any other complaints at this time. Onset (ago): day(s) Location: abdomen Radiation: non-radiation Severity: mild Severity scale (1-10): 4 Quality: aching Pain Consistency: constant Relieving factors: none Exacerbating factors: none Associated symptoms: denies other symptoms Treatments prior to arrival: none Related Data Home Medications Medication Instructions Recorded Confirmed mesalamine 0.375 gram 1.5 g PO QAM 10/21/20 05/18/22 capsule,extended release 24 hr (Apriso) methocarbamol 750 mg tablet 750 mg PO TID 10/21/20 05/18/22 pantoprazole 40 mg tablet,delayed 40 mg PO BEDTIME 10/21/20 05/18/22 release (Protonix) loratadine 10 mg tablet (Claritin) 10 mg PO DAILY 06/24/21 05/18/22 duloxetine 60 mg capsule,delayed 1 cap PO BEDTIME 05/18/22 05/18/22 release ondansetron 8 mg disintegrating 1 tab PO DAILY PRN Nausea 05/18/22 05/18/22 tablet rizatriptan 10 mg tablet 1 tab PO DAILY PRN Migraine 05/18/22 05/18/22 Headache Previous Rx's Medication Instructions Recorded Ajovy 1.5 ml subcut Q30D #3 mL 08/01/22 dicyclomine 10 mg capsule 20 mg PO TIDAC #90 caps 08/01/22 metoprolol tartrate 25 mg tablet 75 mg PO Q8H #90 tabs 08/01/22 oxycodone 5 mg tablet 5 mg PO Q4H PRN Pain, Moderate 08/01/22 (Pain Scale 4-6 #30 tabs oxycodone 5 mg tablet 5 mg PO Q6H PRN pain #30 tabs 08/01/22 Allergies Allergy/AdvReac Type Severity Reaction Status Date / Time omeprazole [OMEPRAZOLE] Allergy Severe N/V Verified 01/29/22 15:10 tramadol [From Ultram] Allergy Intermediate ITCHING Verified 01/29/22 15:10 ibuprofen [From Motrin] Allergy Unknown Verified 05/18/22 09:23 Review of Systems Constitutional: Constitutional: Reports no additional constitutional complaints, Denies chills, Denies fever(s) and Denies night sweats Eyes: Eyes: Reports no additional eye complaints, Denies blurry vision, Denies change in vision, Denies diplopia, Denies eye discharge, Denies loss of vision and Denies eye pain ENT: Denies dizziness Cardiovascular: Cardiovascular: Reports no additional cardiovascular complaints, Denies chest pain, Denies lightheadedness, Denies Loss of Consciousness and Denies dyspnea Respiratory: Respiratory: Reports no additional respiratory complaints and Denies dyspnea Gastrointestinal: Gastrointestinal: Reports no additional gastrointestinal complaints, Reports abdominal pain (around surgical site), Denies melena, Denies hematochezia, Denies change in bowel habits and Denies change in stool character Genitourinary: Genitourinary: Denies hematuria, Denies urinary frequency, Denies dysuria, Denies urinary incontinence, Denies urinary hesitancy and Denies urinary urgency Musculoskeletal: Musculoskeletal: Reports no additional musculoskeletal complaints, Denies numbness and Denies tingling Neurologic: Denies dizziness, Denies loss of vision, Denies numbness and Denies tingling Psychiatric: Psychiatric: Reports no additional psychiatric complaints Endocrine: Endocrine: Reports no additional endocrine complaints Hematologic/Lymphatic: Hematologic/Lymphatic: Reports no additional hematologic/lymphatic complaints Allergic/Immunologic: Allergic/Immunologic: Reports no additional allergic/immunologic complaints PMFSH Past Medical History Attestation statement: The following information was validated with the patient. Source: old records reviewed Medical History (Updated 08/05/22 @ 14:15 by Deandre Hagan MD) Arthritis Back pain Carpal tunnel syndrome COVID-19 vaccine series completed Crohn's disease Environmental allergies Fever of unknown origin Fibromyalgia GERD (gastroesophageal reflux disease) Herniated cervical disc Hx of migraines Intra-abdominal abscess Intra-abdominal abscess Iron deficiency anemia Leukocytosis Perforated viscus PONV (postoperative nausea and vomiting) Shock Thoracic disc herniation Vitamin D deficiency Surgical History History of esophagogastroduodenoscopy (EGD) History of surgery History of tonsillectomy History of tubal ligation Hx of cholecystectomy Hx of colonoscopy Hx of fusion of cervical spine Hx of shoulder surgery Status post colostomy Social History Social History Household Members: Spouse Housing: House Are you a primary family member caretaker to a significant other at home: No Do you presently have visiting nurse or other home services: No Alcohol intake: never Patient Tobacco Use Status: Former Tobacco user Quit Date: 1999 Tobacco use type: Cigarette Advance Directives: Yes Advance Directives Information Provided: Yes Advance Directives on File: No Advance Directives Date on File: 06/23/20 service: No Current occupational status: employed Physical Exam ED Vital Signs: Vital Signs - 24 hr 08/05/22 11:12 08/05/22 11:37 Temperature 98.9 F Pulse Rate 97 75 Respiratory Rate 16 16 Blood Pressure 132/77 143/75 H Pulse Oximetry 97 Oxygen Delivery Method Room Air BMI result Body Mass Index 27.9 Const General: cooperative, no acute distress, alert and awake Nutritional Appearance: well nourished Orientation/consciousness: patient oriented x3 Limitations: no limitations HENMT Head: Yes normal to inspection and Yes atraumatic Ears: hearing grossly normal bilaterally and external ears normal General nose exam: Normal external nose present, no nasal discharge noted and no epistaxis Face and sinus: Yes normal facial exam, No abrasion and No laceration Mouth: Normal oral and palatal mucosa present, no drooling and no muffled voice Eyes General: appearance normal, both eyes and all related structures Periorbital: periorbital findings normal Eyelids: Yes eyelids normal Conjunctivae: conjunctivae normal Pupils: Equal, round and reactive pupils present EOM: EOMs intact bilaterally Neck Neck: Yes normal visual inspection, Yes full ROM and Yes no lymphadenopathy Chest Chest palpation & inspection: normal inspection of the chest Resp Effort & Inspection: normal respiratory effort and able to speak in complete sentences Auscultation: clear to auscultation bilaterally Cardio Rate: regular rate Rhythm: regular rhythm GI Other: Neuro General: patient oriented x3 and moves all extremities Cranial nerves: Yes Equal, round and reactive pupils present Cognition (Neuro): normal cognition Motor exam (neuro): 5/5 motor strength present throughout Sensory Exam: Normal double simultaneous stimulation for sensation Coordination: [id number] test normal Extrem General: Yes normal to inspection, Yes full ROM and Yes capillary refill normal Psych Appearance: grossly normal Mental Status: mental status grossly normal Affect: normal affect Attitude: cooperative Thought process: Normal thought process present Thought content: Normal thought content present Insight: Good insight present (Psych) Medications Administered Generic Name Dose Route Start Last Admin Trade Name Freq PRN Reason Stop Dose Admin Magnesium Sulfate 2 gm in 50 mls @ 25 mls/hr 08/05/22 12:33 08/05/22 13:19 Magnesium Sulfate/H2o IV 08/05/22 14:32 25 mls/hr ONCE ONE Administration Discontinued Medications Generic Name Dose Route Start Last Admin Trade Name Freq PRN Reason Stop Dose Admin Hydromorphone HCl 1 mg 08/05/22 11:12 08/05/22 11:26 Hydromorphone Hcl 1 Mg/Ml Syringe IVPUSH 08/05/22 11:13 1 mg ONCE ONE Administration Protocol Iohexol 100 ml 08/05/22 13:10 08/05/22 13:11 Iohexol 350 Mg/Ml 100 Ml Infus..Btl IV 08/05/22 13:11 85 ml ONCE ONE Administration Medical Decision Making [facility] Narrative Medical decision making narrative: Patient is a 62 year old assigned female at with an extensive abdominal history presenting to the emergency department today with abdominal pain. Patient's physical exam was as documented. Patient's blood work was unremarkable. Patient's abdominal CT is pending. I spoke to the general surgery team who recommended admission to their service. Patient is not septic. I explained my physical exam findings as well as all test results to the patient. I answered all questions asked by the patient. Patient verbalized agreement and understanding with this treatment plan and admission. Medical Records Medical records reviewed: Yes I reviewed the patient's medical records. Lab Data Lab results reviewed: Yes I reviewed the patient's lab results. Result diagrams: 08/05/22 11:55 08/05/22 11:55 Labs: Lab Results 08/05/22 08/05/22 08/05/22 Range/Units 11:49 11:55 11:55 WBC 9.4 (4.8-10.8) X10*3/uL RBC 3.46 L (4.20-5.50) X10*6/uL Hgb 10.0 L (12.0-16.0) g/dl Hct 30.3 L (37.0-47.0) % MCV 87.6 (80.0-98.0) fL MCH 28.9 (27.0-33.0) pg MCHC 33.0 (31.0-35.0) g/dl RDW 14.6 (11.0-16.0) % Plt Count 323 D (160-400) X10*3/uL MPV 9.4 (9.4-12.3) fL Immature Gran % (Auto) 1.6 H (0.0-0.4) % Neut % (Auto) 72.4 (45-73) % Lymph % (Auto) 18.4 L (20-40) % Preston % (Auto) 6.8 (2-11) % Eos % (Auto) 0.2 (0-4) % Baso % (Auto) 0.6 (0-2) % Lymph # (Auto) 1.7 (1.2-4.9) X10*3/uL Preston # (Auto) 0.6 (0.1-1.2) X10*3/uL Eos # (Auto) 0.0 (0.0-0.4) X10*3/uL Baso # (Auto) 0.1 (0.0-0.2) X10*3/uL Abs Immat Gran (auto) 0.15 H (0.00-0.03) X10*3/uL Absolute Neuts (auto) 6.8 (2.0-8.3) x10*3/uL Absolute Nucleated RBC 0.000 (0.0-0.012) X10*3/uL Nucleated RBC % (auto) 0.0 (0.0-0.2) /100WBC Sodium 137 (135-145) mmol/L Potassium 3.7 (3.3-5.1) mmol/L Chloride 101 (96-108) mmol/L Carbon Dioxide 26 (22-29) mmol/L Anion Gap 14 (12-20) BUN 7 L (9-16) mg/dL Creatinine 0.44 L (0.5-1.4) mg/dL Estim Creat Clear Calc 127.3 Estimated GFR > 60 Random Glucose 107 (60-115) mg/dL Calcium 8.7 (8.4-10.2) mg/dL Magnesium 1.2 L* (1.6-2.6) mg/dL Total Bilirubin 0.3 (0.0-1.0) mg/dL AST 14 (5-31) U/L ALT 22 (0-31) U/L Alkaline Phosphatase 188 H (39-117) U/L Total Protein 6.2 L (6.5-8.0) g/dL Albumin 3.1 L (3.5-5.0) g/dL COVID-19 ([facility]) Negative (Negative) COVID-19 Clin Com See Note Discharge Plan Discharge Patient Disposition: Admitted As Inpatient Prescriptions: No Action loratadine [Claritin] 10 mg Tablet 10 mg PO DAILY rizatriptan 10 mg tablet 1 tab PO DAILY PRN (Reason: Migraine Headache) ondansetron 8 mg tablet,disintegrating 1 tab PO DAILY PRN (Reason: Nausea) duloxetine 60 mg capsule,delayed release(DR/EC) 1 cap PO BEDTIME Ajovy 1.5 ml subcut Q30D Qty: 3 0RF dicyclomine 10 mg Capsule 20 mg PO TIDAC Qty: 90 0RF oxycodone 5 mg Tablet 5 mg PO Q4H PRN (Reason: Pain, Moderate (Pain Scale 4-6) Qty: 30 0RF Rx Instructions: Partial Fill upon patient request. metoprolol tartrate 25 mg Tablet 75 mg PO Q8H Qty: 90 0RF Protocol: Hold for SBP/HR < HOLD for SBP < : 90 HOLD for HR < : 60 oxycodone 5 mg tablet 5 mg PO Q6H PRN (Reason: pain) Qty: 30 0RF Rx Instructions: Partial Fill upon patient request. mesalamine [Apriso] 0.375 gram capsule,extended release 24hr 1.5 g PO QAM methocarbamol 750 mg tablet 750 mg PO TID pantoprazole [Protonix] 40 mg tablet,delayed release (DR/EC) 40 mg PO BEDTIME
[2022-08-05 11:07] VITALS: BP 140/70; PULSE 100; O2SAT 97
[2022-08-05 11:12] VITALS: BP 132/77; PULSE 97; RESP 16; TEMP 37.2; O2SAT 97; BMI 27.9
--- NOTE | 2022-08-05 11:18 | PC.NURSE ---
Dr Hagan at bedside
--- OUTSIDE RECORDS SUMMARY | 2022-08-05 11:22 | XMS_ITS ---
:1960 Author Organization [facility] Address [address] [place] [address] Care Team Providers Name Role Phone Ramu Peralta Jr Unavailable Unavailable PROBLEMS Type Condition ICD9-CM [id number] Onset Condition SNOMED Cod e Code Code Dates Status Problem Colitis K52.9 Active 30660952 Problem Crohns disease of K50.80 Active 71 747967 both small and large intestine without complication Problem Nausea R11.0 Active 900934214 Problem Gastroesophageal K21.9 Active reflux disease Problem Gastro-esophageal K21.9 Active reflux disease without esophagitis Problem Diarrhea, R19.7 Active 56158063 unspecified type Problem Gastroesophageal K21.9 Active 266 564379 reflux disease without esophagitis Problem Irritable bowel K58.1 Active 4406 63463 syndrome with constipation Problem Crohn's disease of K50.10 Active 7 850572 colon without complication ALLERGIES Substance Reaction Event Type Date Status Ultram Unknown Drug Allergy May, Active Omeprazole Unknown Drug Allergy May, Active ENCOUNTERS Encounter Location Date Diagnosis [facility] [address] [place] [id number] [place] [address] May, [facility] [address] [place] [address] Aug, [facility] [address] [place] [address] [place] [address] Jun, Gastro-e sophageal reflux [facility] [address] [place] disease [place] thout esophagitis [address] K21.9 [facility] [address] [place] Jun, Gastroesophagea l reflux [place] [id number] disease K2 1.[address] [place] [address] May, Gastroes ophageal reflux [facility] [address] [place] disease wi thout esophagitis [address] K21.9 ; Crohn's disease of colon without co mplication K50.10 and Irrit able bowel syndrome with co nstipation K58.1 [place] [address] May, [facility] [address] [place] [address] [place] [address] Jun, [facility] [address] [place] [address] [place] [address] Jun, Gastroes ophageal reflux [facility] [address] [place] disease wi thout esophagitis [address] K21.9 and Crohns disease of both small and l arge intestine withou t complication K50 .80 [place] [address] Oct, Gastroes ophageal reflux [facility] [address] [place] disease [place] thout esophagitis [address] K21.9 and Crohns disease of both small and l arge intestine withou t complication K50 .80 [place] [address] Apr, Gastroes ophageal reflux [facility] [address] [place] disease [place] thout esophagitis [address] K21.9 and Crohn' 's disease of both small an d large intestine withou t complication K50 .80 [place] [address] Sep, [facility] [address] [place] [address] [facility] [address] [place] Sep, [place] [id number] [place] [address] Sep, Crohns d isease of both small [facility] [address] [place] [place] and large intestine without [address] complication K50 .80 [place] [address] May, Crohns d isease of both small [facility] [address] [place] and large intestine without [address] complication K50 .80 ; Diarrhea, unspec ified type R19.7 and Nausea R11.0 [place] [address] Dec, [facility] [address] [place] [address] [facility] [address] Dec, [facility] [address] [place] [address] [facility] [address] Nov, [facility] [address] [place] [address] [facility] [address] Nov, Crohns d isease of both small [facility] [address] [place] and large intestine without [address] complication K50 .80 [facility] Out[facility] [address] [place] [address] Aug, [place] [id number] [facility] [address] Jun, [facility] [address] [place] [address] [facility] [address] Jun, [facility] [address] [place] [address] [facility] [address] Jun, [facility] [address] [place] [address] [facility] [address] May, [facility] [address] [place] [address] [facility] [address] Mar, Colitis K52.9 [facility] [address] [place] [address] [facility] [address] January, [facility] [address] [place] [address] [facility] [address] January, [facility] [address] [place] [address] [facility] [address] Dec, [facility] [address] [place] [address] [facility] [address] Dec, [facility] [address] [place] [address] [facility] [address] Dec, Colitis K52.9 [facility] [address] [place] [address] [facility] [address] Dec, [facility] [address] [place] [address] [facility] [address] Dec, Ileitis 558.9 and [facility] [address] [place] Gastroesop hageal reflux [address] disease without esophagitis 530.81 [facility] [address] Nov, [facility] [address] [place] [address] [facility] [address] Sep, [facility] [address] [place] [address] [facility] [address] Apr, [facility] [address] [place] [address] [facility] [place] [address] Feb, Ileitis 558.9 a nd [place] [id number] Gastroesop hageal reflux disease without esophagitis 530.81 [facility] [address] Nov, Inflamma tory bowel disease [facility] [address] [place], [place] 558.9 [address] [facility] [address] Oct, Colitis 558.9 [facility] [address] [place] [address] [facility] [place] [address] Oct, [place] [id number] [facility] [address] May, [facility] [address] [place] [address] [facility] [address] Mar, [facility] [address] [place] [address] [facility] [address] Mar, [facility] [address] [place] [address] [facility] [address] Aug, [facility] [address] [place] [address] [facility] [address] January, [facility] [address] [place] [address] [facility] [address] Jun, [facility] [address] [place] [address] [facility] [place] [address] Dec, [place] [id number] [facility] [address] Oct, Esophage al reflux 530.81 and [facility] [address] [place] [address] malignant neopla sms, colon V76.51 [facility] [place] [address] Sep, [place] [id number] [facility] [place] [address] May, [place] [id number] [facility] [address] Feb, [place] [id number] [facility] [address] Nov, [place] [id number] IMMUNIZATIONS Vaccine Route Administration Date Status Influenza Unknown May 19, 2020 Administered Influenza Unknown Jun 17, 2019 Administered Influenza Unknown Jul 25, 2018 Administered SOCIAL HISTORY Never Assessed REASON FOR REFERRAL FUNCTIONAL STATUS PLAN OF CARE Activity Details Pending Test NUC GASTRIC ANTRUM EMPTYING Pending Test MRI ABD W&WO CONTRAST Pending Test PROFILE, RANDOM Pending Test LIVER PROFILE Pending Test AMYLASE Pending Test CBC w DIFF Pending Test SED RATE (ESR) Pending Test CT ABD & PELVIS WITH CONTRAS T Future/Pending Procedure UPPER GI ENDOSCOPY 20210519 Future/Pending Procedure COLONOSCOPY [id number] Future/Pending Procedure UPPER GI ENDOSCOPY [id number] Future/Pending Procedure COLONOSCOPY [id number] Future/Pending Procedure COLONOSCOPY 20141113 Future/Pending Procedure COLONOSCOPY [id number] VITAL SIGNS Weight 181 lbs 2021-05-19 Weight 170 lbs 2020-06-23 Weight 149 lbs 2019-10-15 Weight 139 lbs 2019-04-16 Weight 130 lbs 2018-06-05 Weight 127 lbs 2017-12-05 Weight 119 lbs 2017-03-14 Weight 131 lbs 2016-12-13 Weight 174 lbs 2014-11-13 Weight 180 lbs 2011-10-26 Height 63 in 2021-05-19 Height 63 in 2020-06-23 Height 63 in 2019-10-15 Height 63 in 2019-04-16 Height 63 in 2018-06-05 Height 63 in 2017-12-05 Height 63 in 2017-03-14 Height 63 in 2016-12-13 Height 63 in 2014-11-13 Height 63 in 2011-10-26 BMI 32.06 kg/m2 2021-05-19 BMI 30.11 kg/m2 2020-06-23 BMI 26.39 kg/m2 2019-10-15 BMI 24.62 kg/m2 2019-04-16 BMI 23.03 kg/m2 2018-06-05 BMI 22.49 kg/m2 2017-12-05 BMI 21.08 kg/m2 2017-03-14 BMI 23.20 kg/m2 2016-12-13 BMI 30.82 kg/m2 2014-11-13 BMI 31.88 kg/m2 2011-10-26 Heart Rate 60 /min 2019-04-16 Heart Rate 76 /min 2016-12-13 Heart Rate 64 /min 2011-10-26 Temperature 97.4 degrees Fahrenheit 2021-05-19 Temperature 98.0 degrees Fahrenheit 2020-06-23 Blood pressure systolic 000 mm Hg 2021-05-19 Blood pressure diastolic 00 mm Hg 2021-05-19 MEDICATIONS Medication Instructions Dosage Frequency Start End Duration Statu s Date Date DULoxetine HCl 60 90 Active MG Pantoprazole TAKE 1 90 Active Sodium 40 MG TABLET BY MOUTH EVERY DAY Mesalamine ER TAKE 4 90 Active 0.375 GM CAPSULES BY MOUTH EVERY MORNING 90 Centrum Silver - Orally once a as directed 24h Active day Imitrex 100 MG Orally Once a 1 tablet as 24h Active day needed Claritin Active Methocarbamol Active Topamax 200 MG Orally twice a 1 tablet 12h A ctive day Robaxin Active Cymbalta Active Tylenol Active PROCEDURES Procedure Date Ordered Result Body Site SIGMOIDOSCOPY AND BIOPSY February 08, 2017 SIGMOIDOSCOPY AND BIOPSY May 19, 2022 DOC RSN FOR NOT SCREEN/REC F/U HBP May 19, 2021 BP SCR PRFRM RCMDD DEFIND SCR INTVL Oct 15, 2019 UPPER GI ENDOSCOPY, BIOPSY Jun 29, 2021 DOC MEDS VERIFIED W/PT OR RE Jun 23, 2020 SUPPLIES, CLINICAL STAFF TIME DURING INFECTIOUS Jun 23, 2020 DISEASE PANDEMIC TOBACCO NON-USER Jun 23, 2020 COLORECTAL CA SCREEN DOC REV May 19, 2021 COLORECTAL CA SCREEN DOC REV Oct 15, 2019 DOC MEDS VERIFIED W/PT OR RE May 19, 2021 Pt scrn tbco id as non user May 19, 2021 DOC MEDS VERIFIED W/PT OR RE Oct 15, 2019 SIGMOIDOSCOPY AND BIOPSY December 15, 2016 COLORECTAL CA SCREEN DOC REV Jun 23, 2020 TOBACCO NON-USER Oct 15, 2019 BP NOT ASSESS PATIENT NOT ELIGIBLE Jun 23, 2020 DIAGNOSTIC SIGMOIDOSCOPY Oct 15, 2014 RESULTS Name Result Date Reference Range Pathology 2022-05-23 CT abdomen pelvis wo con 2022-05-23 NM gastric emptying study 2021-08-29 Pathology 2021-06-29 GI BIOPSY 2018-09-20 G.I. BIOPSY PROFILE, RANDOM 2018-06-11 NA 141 135-145 K 4.3 3.3-5.1 CL 109 96-108 CO2 26 22-29 ANION GAP 10 -20 GLUCOSE,RANDOM 72 60-115 BUN 31 9-16 CREATININE 0.72 0.5-1.4 ESTIMATED GFR > 60 PROTEIN, TOTAL 6.5 6.5-8.0 ALBUMIN 4.4 3.5-5.0 BILIRUBIN, TOTAL 0.4 0.0-1.0 CALCIUM 9.4 8.4-10.2 ALK. PHOS. 80 39-117 GOT 16 5-31 GPT 20 0-31 CRP 2018-06-11 CRP 0.08 < OR = 0.50 CBC w DIFF 2018-06-11 WBC 4.4 4.8-10.8 ABSOLUTE NEUTROPHIL COUNT 2.4 2.2-7. 9 RBC 4.28 4.20-5.50 HEMOGLOBIN 13.4 12.0-16.0 HEMATOCRIT 38.3 37-47 MCV 89.6 80-98 MCH 31.3 27.0-33.0 MCHC 34.9 31.0-35.0 PLATELET COUNT 148 160-400 RDW 10.7 11.0-16.0 NEUTROPHILS 55.7 45-73 LYMPHOCYTES 35.0 20-40 MONOCYTES 7.4 2-11 EOSINOPHILS 0.8 0-4 BASOPHILS 1.1 0-2 SED RATE (ESR) 2018-06-11 SED RATE 11 0-20 CLOSTRIDIUM DIFF TOXIN A&B (C 2018-06-11 DIFF) CLOSTRIDIUM DIFF TOXIN A&B Test not performed NE GATIVE STOOL WBC 2018-06-11 STOOL WBC NEGATIVE NEGATIVE OVA & PARASITES (O&P) 2018-06-11 OVA & PARASITES SEE NOTE () CULTURE, STOOL 2018-06-11 CULTURE, STOOL STOOL CULTURE RESULT CULTURE, STOOL No growth after 48 hours CULTURE, STOOL This is an abnormal result for this specimen type CULTURE, STOOL MRI ABDOMEN WOW CONT 2018 MRI PELVIS W&WO CONTRAST 2018 GI BIOPSY 2017-08-15 G.I. BIOPSY PROFILE, RANDOM 2017-08-01 NA 142 135-145 K 3.8 3.3-5.1 CL 106 96-108 CO2 29 22-29 ANION GAP 11 12-20 GLUCOSE,RANDOM 77 60-115 BUN 26 9-16 CREATININE 0.76 0.5-1.4 ESTIMATED GFR > 60 PROTEIN, TOTAL 6.8 6.5-8.0 ALBUMIN 4.6 3.5-5.0 BILIRUBIN, TOTAL 0.4 0.0-1.0 CALCIUM 9.4 8.4-10.2 ALK. PHOS. 84 39-117 GOT 18 5-31 GPT 21 0-31 IRON + IBC (FE) 2017-08-01 IRON 79 30-160 IBC 333 228-428 % SATURATION 24 15-50 B12 2017-08-01 B12 727 200-900 CBC w DIFF 2017-08-01 WBC 4.1 4.8-10.8 ABSOLUTE NEUTROPHIL COUNT 2.1 2.2-7. 9 RBC 4.34 4.20-5.50 HEMOGLOBIN 13.6 12.0-16.0 HEMATOCRIT 38.0 37-47 MCV 87.5 80-98 MCH 31.3 27.0-33.0 MCHC 35.8 31.0-35.0 PLATELET COUNT 145 160-400 RDW 11.1 11.0-16.0 NEUTROPHILS 52.0 45-73 LYMPHOCYTES 40.2 20-40 MONOCYTES 6.3 2-11 EOSINOPHILS 0.3 0-4 BASOPHILS 1.2 0-2 VITAMIN D 25-OH TOTAL 2017-08-01 VITAMIN D 25-OH TOTAL 38.1 > 30 BASIC METABOLIC PROFILE FAST 2017-02-09 NA 136 135-145 K 3.6 3.3-5.1 CL 110 96-108 CO2 21 22-29 ANION GAP 9 12-20 FASTING BLOOD SUGAR 98 60-99 BUN 3 9-16 CREATININE 0.47 0.5-1.4 ESTIMATED GFR > 60 ESTIMATED CrCl 105.7 CALCIUM 7.5 8.4-10.2 IRON + IBC (FE) 2017-02-09 IRON 35 30-160 IBC 139 228-428 % SATURATION 25 15-50 FERRITIN 2017-02-09 FERRITIN 115 10-250 VITAMIN B12 AND FOLATE 2017-02-09 B12 749 200-900 FOLATE 16.4 > OR = 4.0 CBC w DIFF 2017-02-09 WBC 5.6 4.8-10.8 ABSOLUTE NEUTROPHIL COUNT 3.7 2.2-7. 9 RBC 3.00 4.20-5.50 HEMOGLOBIN 8.3 12.0-16.0 HEMATOCRIT 25.7 37-47 MCV 85.4 80-98 MCH 27.5 27.0-33.0 MCHC 32.2 31.0-35.0 PLATELET COUNT 284 160-400 RDW 14.1 11.0-16.0 NEUTROPHILS 65.8 45-73 LYMPHOCYTES 25.0 20-40 MONOCYTES 7.9 2-11 EOSINOPHILS 0.6 0-4 BASOPHILS 0.8 0-2 GI BIOPSY 2017-02-08 G.I. BIOPSY BASIC METABOLIC PROFILE FAST 2017-01-03 NA 131 135-145 K 3.1 3.3-5.1 CL 100 96-108 CO2 21 22-29 ANION GAP 13 12-20 FASTING BLOOD SUGAR 183 60-99 BUN 11 9-16 CREATININE 0.67 0.5-1.4 ESTIMATED GFR > 60 ESTIMATED CrCl 75.0 CALCIUM 7.7 8.4-10.2 LIVER PROFILE 2017-01-03 PROTEIN, TOTAL 4.5 6.5-8.0 ALBUMIN 2.6 3.5-5.0 BILIRUBIN, TOTAL 0.7 0.0-1.0 BILIRUBIN, DIRECT 0.3 0.0-0.5 ALK. PHOS. 93 39-117 GOT 9 5-31 GPT 57 0-31 MAGNESIUM 2017-01-03 MAGNESIUM 1.7 1.6-2.6 AMYLASE 2017-01-03 AMYLASE 28 28-100 LIPASE 2017-01-03 LIPASE < 4 8-78 LACTIC ACID 2017-01-03 LACTIC ACID 1.8 0.5-2.0 CBC with MANUAL DIFFERENTIAL 2017-01-03 WBC 28.8 4.8-10.8 RBC 4.40 4.20-5.50 HEMOGLOBIN 13.8 12.0-16.0 HEMATOCRIT 39.1 37-47 MCV 88.9 80-98 MCH 31.4 27.0-33.0 MCHC 35.3 31.0-35.0 PLATELET COUNT 250 160-400 RDW 10.9 11.0-16.0 SEGS 76 45-73 BANDS 21 3-5 LYMPHOCYTES 3 20-40 PLATELET ESTIMATE NORMAL NORMAL PLATELET MORPHOLOGY NORMAL NORMAL RBC MORPHOLOGY NORMAL NORMAL ABSOLUTE NEUTROPHIL COUNT 27.9 2.2-7. 9 CLOSTRIDIUM DIFF TOXIN A&B (C 2017-01-02 DIFF) CLOSTRIDIUM DIFF TOXIN A&B POSITIVE NEGAT [place] STOOL WBC 2017-01-02 STOOL WBC MANY: > 10 /OIF NEGATIVE CULTURE, STOOL 2017-01-02 CULTURE, STOOL STOOL CULTURE RESULT CULTURE, STOOL No Salmonella, Shigella, Campylobacter isolated. CULTURE, STOOL No Sorbitol-neg E. coli isolated. CULTURE, STOOL Contact lab if other pathogens are suspected. CULTURE, STOOL GI BIOPSY 2016-12-15 G.I. BIOPSY XR GI SMALL BOWEL SERIES 2017-03-06 GI BIOPSY 2015-02-19 G.I. BIOPSY BASIC METABOLIC PROFILE FAST 2014-10-16 NA 142 135-145 K 3.4 3.3-5.1 CL 111 96-108 CO2 21 22-29 ANION GAP 13 12-20 FASTING BLOOD SUGAR 125 60-99 BUN 5 9-16 CREATININE 0.64 0.5-1.4 ESTIMATED GFR > 60 ESTIMATED CrCl 102.9 CALCIUM 8.7 8.4-10.2 LIVER PROFILE 2014-10-16 PROTEIN, TOTAL 5.5 6.5-8.0 ALBUMIN 3.3 3.5-5.0 BILIRUBIN, TOTAL 0.8 0.0-1.0 BILIRUBIN, DIRECT 0.2 0.0-0.5 ALK. PHOS. 111 39-117 GOT 11 5-31 GPT 25 0-31 AMYLASE 2014-10-16 AMYLASE 19 28-100 CBC with MANUAL DIFFERENTIAL 2014-10-16 WBC 5.7 4.8-10.8 ABSOLUTE NEUTROPHIL COUNT 4.7 2.2-7. 9 RBC 3.71 4.20-5.50 HEMOGLOBIN 11.0 12.0-16.0 HEMATOCRIT 31.5 37-47 MCV 84.7 80-98 MCH 29.7 27.0-33.0 MCHC 35.1 31.0-35.0 PLATELET COUNT 209 160-400 RDW 11.3 11.0-16.0 SEGS 75 45-73 BANDS 12 3-5 LYMPHOCYTES 11 20-40 MONOCYTES 2 2-11 PLATELET ESTIMATE NORMAL NORMAL PLATELET MORPHOLOGY NORMAL NORMAL RBC MORPHOLOGY 1+ MICRO NORMAL RBC MORPHOLOGY 1+ POIK NORMAL RBC MORPHOLOGY ROULEAUX NORMAL REASON FOR VISIT COLITIS, still brb and belly pain, x-ray, pathology, gerd, Patient presents today for RUQ pain, acidreflux, nausea, not feeling well , 1 yr ov recall, patient presents today for gerd, Patient presentstoday for GERD, diarrhea, patient presents today for f/u office visit, protonix script?/pt to call to [facility] to make future appt, crohn's disease, Needs prep sent to pharmacy, PATIENT PRESENTS TODAY FORfollow up, ----void, needs new rx for Valium/ called back, RE: order, Pt presents today for f/u fromcolonoscopy and Colitis, Colitis, Colitis, Insurance was not active, please make sure [facility] eligible, Fecal transplant , Patient presents today for HFU, Needs refill, Not any better, fever of 101,Dry heaving, stomach hurts, Patient presents today for reflux, o/v refill, Portal, IBS, per Dr Peralta, ? 2 week HFU, Colitis, refill request, naseous, needs refill , refill, refill, refill, COLON SCREENING, esophageal reflux Insurance Providers [facility] Health Member Patient Patient Patient Patient Patient Subscriber Subscriber Subscriber Group Insurance Plan Plan Plan Plan ID Relationship Address Phone Name Date of ID Name Date of No Type Insurance Insurance Insurance Coverage to Subscriber Address Phone Name Dates MEDICAID [id number] MEDICAID self [place] [id number] OF [facility] [id number] [facility] [address] [facility] [address] [facility] [phone] [facility] self Ju [id number] Health [id number] Health [place]erman Plan [facility] [id number] [address] BLUE self Ju [id number] BENEFITS [id number] BENEFITS [facility] [place] [address] [place] OF [facility] [phone] HEALTH NEW self Ju [id number] [facility] [address] [facility] [address]
--- OUTSIDE RECORDS SUMMARY | 2022-08-05 11:22 | XMS_ITS ---
:1960 Author Care Team Providers Name Role Phone AKHIL SOLARES MD Primary Care Provider [phone] ANTONIO GUAMAN Certified Midwife [phone] Allergies Code Code System Name Reaction Severity Status Onset 7646 RxNorm Omeprazole ? ? Active ? 996181 RxNorm Ultram ? ? Active ? Medications Name Status Start Date Stop Date ? ? acetaminophen 500 mg tablet Completed ? 01/09 Take 2 tablets by oral route. Apriso 0.375 gram capsule,extended release Active ? Not available cyclobenzaprine 5 mg tablet Completed ? 07/11 Flucelvax Quad 9696-0777 (PF) 60 mcg (15 mcg x 4)/0.5 mL Complet ed ? 07/29/2019 IM syringe Flucelvax Quad (PF) 60 mcg (15 mcg x 4)/0.5 mL Complet ed ? 07/29/2019 IM syringe Gavilyte-C 240 gram-22.72 gram-6.72 gram-5.84 gram oral Complete d ? 07/29/2019 solution metaxalone 800 mg tablet Active ? Not lisa ilable omeprazole Completed ? 02/04/2021 pantoprazole 20 mg tablet,delayed release Completed ? 07/29/2019 pantoprazole 40 mg tablet,delayed release Active ? Not available penicillin V potassium 500 mg tablet Completed ? 02/04/2021 Take 1 tablet every 8 hours by oral route for 10 days. prednisone 20 mg tablet Completed ? 07/29/20 sumatriptan 100 mg tablet Active ? Not av ailable topiramate 100 mg tablet Active ? Not lisa ilable topiramate 50 mg tablet Completed ? 07/29/20 Problems Name Status Onset Date Source ? Gastritis Unknown 07/29/2019 ? Migraine Active 02/04/2021 ? Allergic Rhinitis Active 02/04/2021 ? Crohn's Disease Active 02/04/2021 ? Fibromyalgia Active 02/04/2021 ? Procedures Date Name Performed by ? ? Occlusion of Bilateral Fallopian Informa tion not available Tubes ? Procedure on Shoulder Information not av ailable ? Tonsilectomy/adenoids Information not av ailable 02/04/2021 XR, Foot, 3 or More View [facility] [address] [place] [address] (Work Place) Results Lab Results Date Name Specimen Result Interpretation Description Value Range Status Address ? 07/29/2019 Rapid Strep Group ? Strep positive ? ? [facility]: a, Throat [address] [facility] 07/29/2019 Rapid Flu (A+B) ? Flu negative ? ? [facility]: [address] [facility] Past Encounters 02/04/2021 Pain in Right Heel; Injury of Foot Leticia Yang, [employer]: [address] [place] [address], Ph. Social History Tobacco Smoking Status Former Smoker Vaccine List None recorded. Plan of Care Reminders Provider Appointments None recorded. ? ? Lab None recorded. ? ? Referral None recorded. ? ? Procedures None recorded. ? ? Surgeries None recorded. ? ? Imaging None recorded. ? ? Vitals 02/04/2021 05:15PM Established Patient Blood Pressure 130/80 mm[Hg] 07/29/2019 09:30AM New Patient Blood Pressure 142/83 mm[Hg]
[2022-08-05] MEDS: HYDROmorphone HCl 1 MG/ML SYRINGE IVPUSH (11:26)
[2022-08-05 11:37] VITALS: BP 143/75; PULSE 75; RESP 16
[2022-08-05 12:00] LABS: MANUAL DIFF FLAG NO
[2022-08-05 12:01] LABS: Basophils Absolute Auto 0.1 X10*3/uL (0.0-0.2); Basophils Percent Auto 0.6 % (0-2); Eosinophils Percent Auto 0.2 % (0-4); Hematocrit 30.3 % (37.0-47.0); Imm Gran Abs Auto 0.15 X10*3/uL (0.00-0.03); Imm Gran Pct Auto 1.6 % (0.0-0.4); Lymphocytes Absolute Auto 1.7 X10*3/uL (1.2-4.9); Lymphocytes Percent Auto 18.4 % (20-40); Mean Corpuscular Hemoglobin 28.9 pg (27.0-33.0); Mean Corpuscular Volume 87.6 fL (80.0-98.0); Mean Platelet Volume 9.4 fL (9.4-12.3); Monocytes Absolute Auto 0.6 X10*3/uL (0.1-1.2); Monocytes Percent Auto 6.8 % (2-11); Neutrophils Absolute Auto 6.8 x10*3/uL (2.0-8.3); Neutrophils Percent Auto 72.4 % (45-73); Platelet Count 323 X10*3/uL (160-400); Red Blood Count 3.46 X10*6/uL (4.20-5.50); Red Cell Distribution Width 14.6 % (11.0-16.0); White Blood Count 9.4 X10*3/uL (4.8-10.8)
[2022-08-05 12:14] LABS: COVID-19 Test Negative (Negative); IDNOW Serial# 16C4AD1C
[2022-08-05 12:31] LABS: Alanine Aminotransferase 22 U/L (0-31); Albumin Level 3.1 g/dL (3.5-5.0); Alkaline Phosphatase 188 U/L (39-117); Anion Gap 14 (12-20); Aspartate Amino Transferase 14 U/L (5-31); Bilirubin Total 0.3 mg/dL (0.0-1.0); Blood Urea Nitrogen 7 mg/dL (9-16); Calcium 8.7 mg/dL (8.4-10.2); Carbon Dioxide 26 mmol/L (22-29); Chloride 101 mmol/L (96-108); Creatinine Clr Calc Pharmacy 127.3; Estimated Glomerular Filt Rate > 60; Glucose Random 107 mg/dL (60-115); Magnesium 1.2 mg/dL (1.6-2.6); Potassium 3.7 mmol/L (3.3-5.1); Sodium 137 mmol/L (135-145); Total Protein 6.2 g/dL (6.5-8.0)
--- NOTE | 2022-08-05 12:57 | PC.NURSE ---
Pt at CT scan at this time
[2022-08-05] MEDS: iohexoL 350 MG/ML 100 ML INFUS..BTL IV (13:11)
[2022-08-05] MEDS: Magnesium Sulfate/H2O 2 GM/50 ML PIGGYBACK IV (13:19)
--- NOTE | 2022-08-05 14:04 | PM.HPGS ---
History of Present Illness History of Present Illness Date of Service: 08/11/22 Chief complaint: intra-abdominal abscess Narrative: Ju Hankins is a 62 year old female sent to the ED from rehab because of discharge from her incision and high WBC . She has a complex hx starting from emergency laparotomy, sigmoid resection and colostomy last 2021 for a perforation with jos fecal peritonitis. This was likely due to stercoral ulceration in the distal sigmoid. She was in the ICU for several weeks and was on ventilatory support for a whie. She required multiple IR drainage of various intraabdominal fluid collections. She slowly improved and was already on regular diet but developed C diff colitis of the remaining colon. 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 She was in the ICU for a few days, steadily improved and was eventually trasnferred to Rehab on . At the time of discharge, she had been tolerating regular diet, was undergoing physical therapy. However, she says the staff at the rehab institution noticed that she had drainage from her incision. Furthermore, she describes having some nausea yesterday without any vomiting. She denies any fever or chills. She was told that her WBC was elevated this morning so she was sent to the emergency room. Currently she has some mild pain on the lower part of incision. Her stoma has been functioning well with good output. She denies any vomiting. Review of Systems Constitutional: Constitutional: Denies chills and Denies fever(s) Cardiovascular: Cardiovascular: Denies chest pain, Denies dyspnea and Reports dyspnea on exertion Respiratory: Respiratory: Denies cough, Denies dyspnea and Reports dyspnea on exertion Gastrointestinal: Gastrointestinal: Denies hematochezia and Denies change in bowel habits Comments: ileostomy functioning Genitourinary: Genitourinary: Denies hematuria Musculoskeletal: Musculoskeletal: Denies back pain and Denies limited range of motion Integumentary/Breasts: Comments: Significantly deconditioned Neurologic: Denies focal weakness and Denies convulsions Psychiatric: Psychiatric: Denies depression and Denies mood swings [facility] Past Medical History Medical History (Updated 08/09/22 @ 00:03 by Background Daemon) Arthritis Back pain Carpal tunnel syndrome COVID-19 vaccine series completed Crohn's disease Environmental allergies Fever of unknown origin Fibromyalgia GERD (gastroesophageal reflux disease) Herniated cervical disc Hx of migraines Intra-abdominal abscess Intra-abdominal abscess Iron deficiency anemia Leukocytosis Perforated viscus PONV (postoperative nausea and vomiting) Shock Thoracic disc herniation Vitamin D deficiency Surgical History Surgical History (Updated 08/06/22 @ 21:04 by Margie Yepez) History of esophagogastroduodenoscopy (EGD) History of surgery History of tonsillectomy History of tubal ligation Hx of cholecystectomy Hx of colonoscopy Hx of fusion of cervical spine Hx of shoulder surgery Status post colostomy Social History Social History Household Members: None Housing: House Are you a primary live in caregiver to a significant other at home: No Do you presently have visiting nurse or other home services: No Unable to assess alcohol history related to: Unknown Alcohol intake: never Patient Tobacco Use Status: Former Tobacco user Quit Date: 1999 Tobacco use type: Cigarette e-Cigarette/Vaping Use: Never Used Use of substances other than those prescribed or required for medical reasons: No Currently Displaying Signs/Symptoms of Drug Intoxication Withdrawal: No Do you feel safe in your current relationship?: Yes Is there a partner from a previous relationship who is making you feel unsafe now?: No Are you made to feel afraid or neglected: No Advance Directives: Yes Advance Directives Information Provided: Yes Advance Directives on File: No Advance Directives Date on File: 06/23/20 Do you have thoughts of harming others: None Do you have a plan to hurt others: No Plan Recently lost weight without trying: No Patient : No Poor oral hygiene: No service: No Current occupational status: employed Meds Allergies Allergy/AdvReac Type Severity Reaction Status Date / Time omeprazole [OMEPRAZOLE] Allergy Severe N/V Verified 08/07/22 10:48 tramadol [From Ultram] Allergy Intermediate ITCHING Verified 08/07/22 10:48 ibuprofen [From Motrin] Allergy Unknown Verified 08/07/22 10:48 Active Medications: Current Medications Magnesium Sulfate (Magnesium Sulfate/H2o) 2 gm in 50 mls @ 25 mls/hr IV ONCE ONE Stop: 08/05/22 14:32 Last Admin: 08/05/22 13:19 Dose: 25 mls/hr Pharmacy Consult (Consult Rx Perform Med Rec) 1 each MISCELLANE ONCE PRN PRN Reason: Consult order Home Medications Medication Instructions Recorded Confirmed Last Taken Type mesalamine 0.375 gram 1.5 g PO QAM 10/21/20 08/05/22 05/17/22 History capsule,extended release 24 hr (Apriso) methocarbamol 750 mg tablet 750 mg PO TID 10/21/20 08/05/22 05/17/22 History pantoprazole 40 mg tablet,delayed 40 mg PO BEDTIME 10/21/20 08/05/22 05/17/22 History release (Protonix) loratadine 10 mg tablet (Claritin) 10 mg PO DAILY 06/24/21 08/05/22 05/17/22 History duloxetine 60 mg capsule,delayed 1 cap PO BEDTIME 05/18/22 08/05/22 05/17/22 History release ondansetron 8 mg disintegrating 1 tab PO DAILY PRN Nausea 05/18/22 08/05/22 Unknown History tablet rizatriptan 10 mg tablet 1 tab PO DAILY PRN Migraine 05/18/22 08/05/22 Unknown History Headache fremanezumab-vfrm 225 mg/1.5 mL 225 mg subcut Q30D 08/05/22 08/05/22 Unknown History subcutaneous syringe (Ajovy Syringe) metoprolol tartrate 25 mg tablet 75 mg PO TID 08/05/22 08/05/22 Unknown History oxycodone 5 mg tablet 5 mg PO Q6H PRN Pain, Moderate 08/05/22 08/05/22 Unknown History (Pain Scale 4-6 Physical Exam Vital Signs: Vital Signs: Last Vital Signs Temp 98.9 F 08/05/22 11:12 Pulse 75 08/05/22 11:37 Resp 16 08/05/22 11:37 BP 143/75 H 08/05/22 11:37 Pulse Ox 97 08/05/22 11:12 O2 Del Method 08/05/22 11:12 BMI result Body Mass Index 27.9 Const: General: comfortable and no acute distress Orientation/consciousness: patient oriented x3 Neck: Neck: Yes no lymphadenopathy Resp: Auscultation: clear to auscultation bilaterally Cardio: Rhythm: regular rhythm GI: Other: ileostomy with good output, midline incision healing although there is some CT drainage on the lower part of the incision, [address], with the lower part burying into the skin, skin jazmine in place, mild tenderness diffusely Palpation (GI): Soft to palpation, nontender and no guarding Neuro: General: patient oriented x3 Results Results Labs: Short CBC 08/05/22 Range/Units 11:55 WBC 9.4 (4.8-10.8) X10*3/uL Hgb 10.0 L (12.0-16.0) g/dl Hct 30.3 L (37.0-47.0) % Plt Count 323 D (160-400) X10*3/uL BMP 08/05/22 11:55 Sodium 137 Potassium 3.7 Chloride 101 Carbon Dioxide 26 BUN 7 L Creatinine 0.44 L Calcium 8.7 Liver Function 08/05/22 Range/Units 11:55 Total Bilirubin 0.3 (0.0-1.0) mg/dL AST 14 (5-31) U/L ALT 22 (0-31) U/L Alkaline Phosphatase 188 H (39-117) U/L Albumin 3.1 L (3.5-5.0) g/dL Laboratory Results WBC 9.4 X10*3/uL (4.8-10.8) 08/05/22 11:55 RBC 3.46 X10*6/uL (4.20-5.50) L 08/05/22 11:55 Hgb 10.0 g/dl (12.0-16.0) L 08/05/22 11:55 Hct 30.3 % (37.0-47.0) L 08/05/22 11:55 MCV 87.6 fL (80.0-98.0) 08/05/22 11:55 MCH 28.9 pg (27.0-33.0) 08/05/22 11:55 MCHC 33.0 g/dl (31.0-35.0) 08/05/22 11:55 RDW 14.6 % (11.0-16.0) 08/05/22 11:55 Plt Count 323 X10*3/uL (160-400) D 08/05/22 11:55 MPV 9.4 fL (9.4-12.3) 08/05/22 11:55 Immature Gran % (Auto) 1.6 % (0.0-0.4) H 08/05/22 11:55 Neut % (Auto) 72.4 % (45-73) 08/05/22 11:55 Lymph % (Auto) 18.4 % (20-40) L 08/05/22 11:55 [place] % (Auto) 6.8 % (2-11) 08/05/22 11:55 Eos % (Auto) 0.2 % (0-4) 08/05/22 11:55 Baso % (Auto) 0.6 % (0-2) 08/05/22 11:55 Lymph # (Auto) 1.7 X10*3/uL (1.2-4.9) 08/05/22 11:55 [place] # (Auto) 0.6 X10*3/uL (0.1-1.2) 08/05/22 11:55 Eos # (Auto) 0.0 X10*3/uL (0.0-0.4) 08/05/22 11:55 Baso # (Auto) 0.1 X10*3/uL (0.0-0.2) 08/05/22 11:55 Abs Immat Gran (auto) 0.15 X10*3/uL (0.00-0.03) H 08/05/22 11:55 Absolute Neuts (auto) 6.8 x10*3/uL (2.0-8.3) 08/05/22 11:55 Absolute Nucleated RBC 0.000 X10*3/uL (0.0-0.012) 08/05/22 11:55 Nucleated RBC % (auto) 0.0 /100WBC (0.0-0.2) 08/05/22 11:55 Sodium 137 mmol/L (135-145) 08/05/22 11:55 Potassium 3.7 mmol/L (3.3-5.1) 08/05/22 11:55 Chloride 101 mmol/L (96-108) 08/05/22 11:55 Carbon Dioxide 26 mmol/L (22-29) 08/05/22 11:55 Anion Gap 14 (12-20) 08/05/22 11:55 BUN 7 mg/dL (9-16) L 08/05/22 11:55 Creatinine 0.44 mg/dL (0.5-1.4) L 08/05/22 11:55 Estim Creat Clear Calc 127.3 08/05/22 11:55 Estimated GFR > 60 08/05/22 11:55 Random Glucose 107 mg/dL (60-115) 08/05/22 11:55 Calcium 8.7 mg/dL (8.4-10.2) 08/05/22 11:55 Magnesium 1.2 mg/dL (1.6-2.6) L* 08/05/22 11:55 Total Bilirubin 0.3 mg/dL (0.0-1.0) 08/05/22 11:55 AST 14 U/L (5-31) 08/05/22 11:55 ALT 22 U/L (0-31) 08/05/22 11:55 Alkaline Phosphatase 188 U/L (39-117) H 08/05/22 11:55 Total Protein 6.2 g/dL (6.5-8.0) L 08/05/22 11:55 Albumin 3.1 g/dL (3.5-5.0) L 08/05/22 11:55 COVID-19 (TYLER) Negative (Negative) 08/05/22 11:49 COVID-19 Clin Com See Note 08/05/22 11:49 Assessment and Plan (1) Intra-abdominal abscess: Status: Acute She has had laparotomy x2 for sigmoid perforation with fecal peritonitis, then for subtotal colectomy for toxic megacolon. She has been in rehab but was sent because of reported high white count and drainage from the incision. I have reviewed her CAT scan with the radiologist. There was note of a large fluid collection consistent with an intra-abdominal abscess in the abdomen. Her stoma is otherwise functioning well and she has no evidence of obstruction and she is actually tolerating regular diet I will set her up for CT drainage which will most likely be on Sunday. She otherwise is hemodynamic stable and appears comfortable. I will start her on IV antibiotics. She can have diet as tolerated. Her abdominal exam is benign. I removed her skin jazmine on the midline incision Quality Stroke Does the patient have a stroke diagnosis?: No VTE Prior VTE?: No VTE Risk Level:: Medical - moderate - high VTE Device Contraindication: N/A - Device Ordered VTE Drug Contraindication: N/A - Med Ordered Procedures Date of Service Date of Service: 08/05/22
--- OUTSIDE RECORDS SUMMARY | 2022-08-05 14:32 | XMS_ITS ---
:1960 Author Organization [facility] Address [address] [place] [address] Care Team Providers Name Role Phone Ramu Peralta Jr Unavailable Unavailable PROBLEMS Type Condition ICD9-CM DDQ08-DY Onset Condition SNOMED Cod e Code Code Dates Status Problem Colitis K52.9 Active 69747665 Problem Crohns disease of K50.80 Active 71 118605 both small and large intestine without complication Problem Nausea R11.0 Active 412933189 Problem Gastroesophageal K21.9 Active reflux disease Problem Gastro-esophageal K21.9 Active reflux disease without esophagitis Problem Diarrhea, R19.7 Active 26563863 unspecified type Problem Gastroesophageal K21.9 Active 266 649020 reflux disease without esophagitis Problem Irritable bowel K58.1 Active 4406 18785 syndrome with constipation Problem Crohn's disease of K50.10 Active 7 760264 colon without complication ALLERGIES Substance Reaction Event Type Date Status Ultram Unknown Drug Allergy May, Active Omeprazole Unknown Drug Allergy May, Active ENCOUNTERS Encounter Location Date Diagnosis [facility] Inpatient [address] [facility] May, [place] [id number] [place] [address] May, [facility] [address] [place] [address] Aug, [facility] [address] [place] [address] [place] [address] Jun, Gastro-e sophageal reflux [facility] [address] [place] disease wi thout esophagitis [address] K21.9 [facility] Outpatient [address] [facility] Jun, Gastroesophagea l reflux [place] [id number] disease K2 1.[address] [place] [address] May, Gastroes ophageal reflux [facility] [address] [place] disease wi thout esophagitis [address] K21.9 ; Crohn's disease of colon without co mplication K50.10 and Irrit able bowel syndrome with co nstipation K58.[address] [place] [address] May, [facility] [address] [place] [address] [place] [address] Jun, [facility] [address] [place] [address] [place] [address] Jun, Gastroes ophageal reflux [facility] [address] [place] disease wi thout esophagitis [address] K21.9 and Crohns disease of both small and l arge intestine withou t complication K50 .[address] [place] [address] Oct, Gastroes ophageal reflux [facility] [address] [place] disease wi thout esophagitis [address] K21.9 and Crohns disease of both small and l arge intestine withou t complication K50 .[address] [place] [address] Apr, Gastroes ophageal reflux [facility] [address] [place] disease wi thout esophagitis [address] K21.9 and Crohn' 's disease of both small an d large intestine withou t complication K50 .[address] [place] [address] Sep, [facility] [address] [place] [address] [facility] Outpatient [address] [facility] Sep, [place] [id number] [place] [address] Sep, Crohns d isease of both small [facility] [address] [place] and large intestine without [address] complication K50 .[address] [place] [address] May, Crohns d isease of both small [facility] [address] [place] and large intestine without [address] complication K50 .80 ; Diarrhea, unspec ified type R19.7 and Nausea R11.[address] [place] [address] Dec, [facility] [address] [place] [address] [facility] [address] Dec, [facility] [address] [place] [address] [facility] [address] Nov, [facility] [address] [place] [address] [facility] [address] Nov, Crohns d isease of both small [facility] [address] [place] and large intestine without [address] complication K50 .80 [facility] Outpatient [address] [place] [address] Aug, [place] [id number] [facility] [address] Jun, [facility] [address] [place] [address] [facility] [address] Jun, [facility] [address] [place] [address] [facility] [address] Jun, [facility] [address] [place] [address] [facility] [address] May, [facility] [address] [place] [address] [facility] [address] Mar, Colitis K52.9 [facility] [address] [place] [address] [facility] [address] January, [facility] [address] [place] [address] [facility] [address] January, [facility] [address] [place] [address] [facility] [address] Dec, [facility] [address] [place] [address] [facility] [address] Dec, [facility] [address] [place] [address] [facility] [address] Dec, Colitis K52.9 [facility] [address] [place] [address] [facility] [address] Dec, [facility] [address] [place] [address] [facility] [address] Dec, Ileitis 558.9 and [facility] [address] [place] Gastroesop hageal reflux [address] disease without esophagitis 530.81 [facility] [address] Nov, [facility] [address] [place] [address] [facility] [address] Sep, [facility] [address] [place] [address] [facility] [address] Apr, [facility] [address] [place] [address] [facility] Outpatient [address] Feb, Ileitis 558.9 a nd [place]ARC[place] [id number] Gastroesop hageal reflux disease without esophagitis 530.81 [facility] [address] Nov, Inflamma tory bowel disease [facility] [address] [place], MARCOS 558.9 [address] [facility] [address] Oct, Colitis 558.9 [facility] [address] [place] [address] [facility] Inpatient [address] [facility] [address] Oct, [place] [id number] [facility] [address] May, [facility] [address] [place] [address] [facility] [address] Mar, [facility] [address] [place] [address] [facility] [address] Mar, [facility] [address] [place] [address] [facility] [address] Aug, [facility] [address] [place] [address] [facility] [address] January, [facility] [address] [place] [address] [facility] [address] Jun, [facility] [address] [place] [address] [facility] Outpatient [address] Dec, [place] [id number] [facility] [address] Oct, Esophage al reflux 530.81 and [facility] [address] [place] [address] malignant neopla sms, colon V76.51 [facility] Outpatient [address] Sep, [place] [id number] [facility] ER [address] May, [place] [id number] [facility] ER [address] Feb, [place] [id number] [facility] ER [address] Nov, [place] [id number] IMMUNIZATIONS Vaccine Route Administration Date Status Influenza [...] refill, COLON SCREENING, esophageal reflux Insurance Providers [facility] Health Member Patient Patient Patient Patient Patient Subscriber Subscriber Subscriber Group Insurance Plan Plan Plan Plan ID Relationship Address Phone Name Date of ID Name Date of No Type Insurance Insurance Insurance Coverage to Subscriber Address Phone Name Dates [facility] [phone] HEALTH NEW self Ju [id number] [facility] [address] [facility] [address] [facility] [address] [employer] [phone] [employer] self Ju [id number] Health [id number] Health [place] Plan [facility] Plan [id number] [address] BLUE self Ju [id number] BENEFITS [id number] BENEFITS [facility] 7 ADMINISTRA [facility] [place] [address] [place] [phone] MEDICAID self Ju [id number] OF [facility] [id number] OF [facility] [address]
--- OUTSIDE RECORDS SUMMARY | 2022-08-05 14:32 | XMS_ITS ---
:1960 Author Care Team Providers Name Role Phone AKHIL SOLARES MD Primary Care Provider [phone] ANTONIO GUAMAN [employer] Teacher [phone] Allergies Code Code System Name Reaction Severity Status Onset 7646 RxNorm Omeprazole ? ? Active ? 263832 RxNorm Ultram ? ? Active ? Medications Name Status Start Date Stop Date ? ? acetaminophen 500 mg tablet Completed ? 01/09 Take 2 tablets by oral route. Apriso 0.375 gram capsule,extended release Active ? Not available cyclobenzaprine 5 mg tablet Completed ? 07/11 Flucelvax Quad 7247-1386 (PF) 60 mcg (15 mcg x 4)/0.5 [...] 02/04/2021 XR, Foot, 3 or More View [facility] [address] [place] [address] (Work Place) Results Lab Results Date Name Specimen Result Interpretation Description Value Range Status Address ? 07/29/2019 [facility] Strep Group ? Strep positive ? ? Byst [facility]: a, Throat [address] [facility] 07/29/2019 Rapid Flu (A+B) ? Flu negative ? ? Byst [facility]: 57 [facility] Past Encounters 02/04/2021 Pain in Right Heel; Injury of Foot Leticia Yang, COLOR SEPARATION PHOTOGRAPHER: [address] [place] [address], Ph. Social History Tobacco Smoking Status Former [...]
--- NOTE | 2022-08-05 15:23 | PHA.MEDREC ---
Pharmacy Consult ? Medication Reconciliation Pharmacy has completed the medication reconciliation. Patient came from [facility] with med list. Karen Andrews, HernandezD
[2022-08-05] MEDS: Piperacillin Sodium/Tazobactam 3.375 GM in 0.9 % Sodium Chloride 50 ML IV ×2 (15:58→20:37)
[2022-08-05] MEDS: 0.9 % Sodium Chloride 1,000 ML 80 ML IVCONT (15:58)
[2022-08-05] MEDS: Heparin Sodium,Porcine 5,000 UNIT/ML VIAL 5000 UNIT SUBCUT ×2 (15:58→23:20)
--- NOTE | 2022-08-05 16:19 | PC.NURSE ---
Colostomy bag emptied
[2022-08-05 16:21] VITALS: BP 126/64; PULSE 101; RESP 18; TEMP 36.8; O2SAT 96
[2022-08-05] MEDS: Metoprolol Tartrate 25 MG TABLET 75 MG PO (20:23)
[2022-08-05] MEDS: Morphine Sulfate 2 MG/ML CARTRIDGE 3 MG IVPUSH (20:26)
[2022-08-05] MEDS: ondansetron HCL 4 MG/2 ML VIAL IVPUSH (20:41)
[2022-08-05 21:38] VITALS: BP 109/64; PULSE 103; RESP 18; TEMP 36.9; O2SAT 94
[2022-08-06] MEDS: Piperacillin Sodium/Tazobactam 3.375 GM in 0.9 % Sodium Chloride 50 ML IV ×4 (03:21→22:24)
[2022-08-06] MEDS: 0.9 % Sodium Chloride 1,000 ML 80 ML IVCONT ×2 (03:23→17:10)
[2022-08-06] MEDS: Morphine Sulfate 2 MG/ML CARTRIDGE 3 MG IVPUSH ×5 (03:30→22:26)
[2022-08-06] MEDS: Heparin Sodium,Porcine 5,000 UNIT/ML VIAL 5000 UNIT SUBCUT ×3 (06:01→22:31)
[2022-08-06 07:01] LABS: MANUAL DIFF FLAG NO
[2022-08-06 07:05] LABS: Basophils Absolute Auto 0.1 X10*3/uL (0.0-0.2); Basophils Percent Auto 0.8 % (0-2); Eosinophils Percent Auto 0.2 % (0-4); Hematocrit 32.1 % (37.0-47.0); Hemoglobin 10.1 g/dl (12.0-16.0); Imm Gran Abs Auto 0.12 X10*3/uL (0.00-0.03); Imm Gran Pct Auto 1.4 % (0.0-0.4); Lymphocytes Absolute Auto 1.7 X10*3/uL (1.2-4.9); Lymphocytes Percent Auto 19.9 % (20-40); Mean Corpuscular HGB Conc 31.5 g/dl (31.0-35.0); Mean Corpuscular Hemoglobin 28.4 pg (27.0-33.0); Mean Corpuscular Volume 90.2 fL (80.0-98.0); Mean Platelet Volume 9.6 fL (9.4-12.3); Monocytes Absolute Auto 0.7 X10*3/uL (0.1-1.2); Monocytes Percent Auto 7.5 % (2-11); Neutrophils Absolute Auto 6.1 x10*3/uL (2.0-8.3); Neutrophils Percent Auto 70.2 % (45-73); Platelet Count 318 X10*3/uL (160-400); Red Blood Count 3.56 X10*6/uL (4.20-5.50); White Blood Count 8.8 X10*3/uL (4.8-10.8)
[2022-08-06 07:08] LABS: INTERNATIONAL NORM RATIO 1.1 (0.9-1.1); Prothrombin Time 12.1 SEC (10.0-13.1)
[2022-08-06 07:24] LABS: Magnesium 1.7 mg/dL (1.6-2.6)
[2022-08-06 07:25] LABS: Anion Gap 14 (12-20); Blood Urea Nitrogen 5 mg/dL (9-16); Calcium 8.5 mg/dL (8.4-10.2); Carbon Dioxide 24 mmol/L (22-29); Chloride 102 mmol/L (96-108); Creatinine Clr Calc Pharmacy 114.3; Estimated Glomerular Filt Rate > 60; Glucose Random 112 mg/dL (60-115); Potassium 3.3 mmol/L (3.3-5.1); Sodium 137 mmol/L (135-145)
[2022-08-06 07:46] VITALS: BP 149/86; PULSE 98; RESP 16; TEMP 37; O2SAT 97
[2022-08-06] MEDS: Metoprolol Tartrate 25 MG TABLET 75 MG PO ×2 (08:43→22:25)
[2022-08-06] MEDS: ondansetron HCL 4 MG/2 ML VIAL IVPUSH ×3 (08:48→23:07)
--- NOTE | 2022-08-06 10:29 | PM.PNGS ---
Subjective Subjective Date of Service: 08/06/22 Interval history: feels well denies abdominal pain had good oral intake Physical Exam Vital Signs: Vital Signs: Last Vital Signs Temp 98.6 F 08/06/22 07:46 Pulse 98 08/06/22 07:46 Resp 16 08/06/22 07:46 BP 149/86 H 08/06/22 07:46 Pulse Ox 97 08/06/22 07:46 O2 Del Method 08/06/22 07:46 BMI result Body Mass Index 27.9 Const: General: comfortable and no acute distress Resp: Effort & Inspection: normal respiratory effort Cardio: Rhythm: regular rhythm GI: Other: soft,, functioning well, some drainage from the lower part of the incision where of the Objective Data Active Medications Duloxetine HCl (Duloxetine Hcl 20 Mg Capsule.) 20 mg PO DAILY [facility] Last Admin: 08/06/22 08:43 Dose: Not Given Documented By: NURIS Non-Admin Reason: Patient Refused Heparin Sodium (Porcine) (Heparin Sodium,Porcine 5,000 Unit/Ml Vial) 5,000 unit SUBCUT Q8H [facility] Last Admin: 08/06/22 06:01 Dose: 5,000 unit Documented By: KEITH Sodium Chloride (Ns) 1,000 mls @ 80 mls/hr IVCONT .[id number] [facility] Last Admin: 08/06/22 03:23 Dose: 80 mls/hr Documented By: KEITH Piperacillin Sod/Tazobactam (Sod 3.375 gm/ Sodium Chloride) 50 mls @ 100 mls/hr IV Q6H [facility] Last Admin: 08/06/22 08:42 Dose: 100 mls/hr Documented By: NURIS Metoprolol Tartrate (Metoprolol Tartrate 25 Mg Tablet) 75 mg PO BID [facility]; Protocol Last Admin: 08/06/22 08:43 Dose: 75 mg Documented By: NURIS Morphine Sulfate (Morphine Sulfate 2 Mg/Ml Cartridge) 3 mg IVPUSH Q4H PRN; Protocol PRN Reason: Pain, Severe (Pain Scale 7-10) Last Admin: 08/06/22 08:42 Dose: 3 mg Documented By: NURIS Omeprazole (Omeprazole 40 Mg Capsule.) 40 mg PO DAILY@0630 [facility] Last Admin: 08/06/22 06:01 Dose: Not Given Documented By: KEITH Non-Admin Reason: Allergy Ondansetron HCl (Ondansetron Hcl 4 Mg/2 Ml Vial) 4 mg IVPUSH Q8H PRN PRN Reason: Nausea and Vomiting Last Admin: 08/06/22 08:48 Dose: 4 mg Documented By: NURIS Oxycodone HCl (Oxycodone Hcl Immed Release 5 Mg Tablet) 5 mg PO Q6H PRN PRN Reason: Pain, Moderate (Pain Scale 4-6 Pharmacy Consult (Consult Rx Perform Med Rec) 1 each MISCELLANE ONCE PRN PRN Reason: Consult order Sodium Chloride (0.9 % Sodium Chloride Flush 3 Ml Syringe) 3 ml IVFLUSH QSHIFT GAUDENCIO Last Admin: 08/06/22 08:09 Dose: Not Given Documented By: NURIS Non-Admin Reason: IV Running Labs CBC & Chem 7: 08/06/22 06:37 08/06/22 06:37 Labs: Laboratory Results - last 24 hr 08/05/22 08/05/22 08/05/22 11:49 11:55 11:55 MCV 87.6 MCH 28.9 MCHC 33.0 RDW 14.6 Plt Count 323 D MPV 9.4 Immature Gran % (Auto) 1.6 H Neut % (Auto) 72.4 Lymph % (Auto) 18.4 L Baldwin % (Auto) 6.8 Eos % (Auto) 0.2 Baso % (Auto) 0.6 Lymph # (Auto) 1.7 Baldwin # (Auto) 0.6 Eos # (Auto) 0.0 Baso # (Auto) 0.1 Abs Immat Gran (auto) 0.15 H Absolute Neuts (auto) 6.8 Absolute Nucleated RBC 0.000 Nucleated RBC % (auto) 0.0 PT INR Anion Gap 14 Estim Creat Clear Calc 127.3 Estimated GFR > 60 Random Glucose 107 Calcium 8.7 Magnesium 1.2 L* Total Bilirubin 0.3 AST 14 ALT 22 Alkaline Phosphatase 188 H Total Protein 6.2 L Albumin 3.1 L COVID-19 ([facility]) Negative COVID-19 Clin Com See Note 08/06/22 08/06/22 08/06/22 06:37 06:37 06:37 MCV 90.2 MCH 28.4 MCHC 31.5 RDW 15.0 Plt Count 318 MPV 9.6 Immature Gran % (Auto) 1.4 H Neut % (Auto) 70.2 Lymph % (Auto) 19.9 L Baldwin % (Auto) 7.5 Eos % (Auto) 0.2 Baso % (Auto) 0.8 Lymph # (Auto) 1.7 Baldwin # (Auto) 0.7 Eos # (Auto) 0.0 Baso # (Auto) 0.1 Abs Immat Gran (auto) 0.12 H Absolute Neuts (auto) 6.1 Absolute Nucleated RBC 0.000 Nucleated RBC % (auto) 0.0 PT INR Anion Gap 14 Estim Creat Clear Calc 114.3 Estimated GFR > 60 Random Glucose 112 Calcium 8.5 Magnesium 1.7 Total Bilirubin AST ALT Alkaline Phosphatase Total Protein Albumin COVID-19 ([facility]) COVID-19 [email or web address] Com 08/06/22 06:37 MCV MCH MCHC RDW Plt Count MPV Immature Gran % (Auto) Neut % (Auto) Lymph % (Auto) Baldwin % (Auto) Eos % (Auto) Baso % (Auto) Lymph # (Auto) Baldwin # (Auto) Eos # (Auto) Baso # (Auto) Abs Immat Gran (auto) Absolute Neuts (auto) Absolute Nucleated RBC Nucleated RBC % (auto) PT 12.1 INR 1.1 Anion Gap Estim Creat Clear Calc Estimated GFR Random Glucose Calcium Magnesium Total Bilirubin AST ALT Alkaline Phosphatase Total Protein Albumin COVID-19 ([facility]) COVID-19 Clin Com Procedures Date of Service Date of Service: 08/06/22 Progress Note: A&P Assessment and plan (1) Intra-abdominal abscess: Status: Acute Assessment and Plan: doing well abdomen soft and benign stoma with good function CT showing large abscess intra-abdominally plan CT drain tomorrow Time Spent With Patient Time: Total time spent is greater than 50% in coordination of care (as documented) at patient's floor/unit and/or counseling patient: Quality Stroke Does the patient have a stroke diagnosis?: No VTE Prior VTE?: No VTE Risk Level:: Medical - moderate - high VTE Device Contraindication: N/A - Device Ordered VTE Drug Contraindication: N/A - Med Ordered
--- NOTE | 2022-08-06 12:17 | PC.NURSE ---
pt reporting discomfort to R hip area. repositioned in bed onto left side with pillow.
--- NOTE | 2022-08-06 16:23 | MHC.CM.PN ---
CM ATTEMPTED TO SEE PT WHO WAS RECEIVING NURSING CARE PT DISCHARGED TO [facility] ON 08/01/22 FOR STR THEY HAVE CONFIRMED PT WAS STILL WITH THEM ACCESS TECH PT DOES NOT HAVE A HCP ON FILE HERE OR AT [facility] DCP TBD, LIKELY RETURN TO SNF IMM NOT YET DELIVERED
--- NOTE | 2022-08-06 16:30 | PC.NURSE ---
PT PLACED IN A HOSPITAL BED FOR COMFORT.
[2022-08-06 16:52] VITALS: BP 133/74; PULSE 106; RESP 16; TEMP 37; O2SAT 96
[2022-08-06 21:21] VITALS: BP 132/75; PULSE 125; RESP 18; TEMP 37.2; O2SAT 96
[2022-08-06 23:33] VITALS: BP 124/61; PULSE 95; RESP 18; TEMP 37.2; O2SAT 91
[2022-08-07] VITALS (12 sets, daily range): BP systolic 133–170; BP diastolic 66–77; PULSE 98–106; RESP 16–22; TEMP 36.2–37.6; O2SAT 89–100; BMI 27.7
[2022-08-07] MEDS: Piperacillin Sodium/Tazobactam 3.375 GM in 0.9 % Sodium Chloride 50 ML IV ×3 (03:16→20:07)
[2022-08-07] MEDS: Morphine Sulfate 2 MG/ML CARTRIDGE 3 MG IVPUSH ×4 (03:17→20:06)
[2022-08-07] MEDS: 0.9 % Sodium Chloride 1,000 ML 80 ML IVCONT ×2 (06:08→20:22)
[2022-08-07] MEDS: Heparin Sodium,Porcine 5,000 UNIT/ML VIAL 5000 UNIT SUBCUT ×3 (06:10→22:30)
--- NOTE | 2022-08-07 07:58 | PC.NURSE ---
patient O2 hovering between 89-92 percent. 2L applied
[2022-08-07] MEDS: ondansetron HCL 4 MG/2 ML VIAL IVPUSH ×2 (08:02→22:30)
--- NOTE | 2022-08-07 08:09 | P.PNGS_ITS ---
Subjective Subjective Date of Service: 08/07/22 <Tiffanie Villeda PA-C - Last Filed: 08/07/22 08:19> 08/07/22 <Deandre Hagan MD - Last Filed: 08/07/22 09:16> Interval history: Wondering when the drainage will be performed. Feels a little better since admission, pain slightly improved but still persists. Hungry and wants to eat. Ostomy output has been normal. <Tiffanie Villeda PA-C - Last Filed: 08/07/22 08:19> Physical Exam Vital Signs: Vital Signs: Last Vital Signs Temp 99.2 F 08/07/22 03:32 Pulse 104 H 08/07/22 07:52 Resp 16 08/07/22 07:52 BP 136/66 08/07/22 07:52 Pulse Ox 92 08/07/22 07:52 O2 Del Method 08/07/22 07:52 BMI result Body Mass Index 27.7 <Tiffanie Villeda PA-C - Last Filed: 08/07/22 08:19> Const: General: comfortable, no acute distress and alert <Tiffanie Villeda PA-C - Last Filed: 08/07/22 08:19> Orientation/consciousness: patient oriented x3 <Tiffanie Villeda PA-C - Last Filed: 08/07/22 08:19> Resp: Effort & Inspection: normal respiratory effort <Tiffanie Villeda PA-C - Last Filed: 08/07/22 08:19> Cardio: Rate: tachycardic <Tiffanie Villeda PA-C - Last Filed: 08/07/22 08:19> GI: Other: ostomy with liquid stool output <Tiffanie Villeda PA-C - Last Filed: 08/07/22 08:19> Inspection: Yes incision (no drainage noted, clean, retention sutures in place) <NAVDEEP Soto Last Filed: 08/07/22 08:19> Palpation (GI): Soft to palpation, Tenderness to palpation present (GI) (mild, i ncisional), no guarding and not rigid <NAVDEEP Soto Last Filed: 08/07/22 08:19> Percussion: Yes normal to percussion <Tiffanie Villeda PA-C - Last Filed: 08/07/22 08:19> Skin: General skin exam: no rashes or lesions noted <Tiffanie Villeda PA-C - Last Filed: 08/07/22 08:19> Neuro: General: patient oriented x3 <NAVDEEP Soto Last File d: 08/07/22 08:19> Extrem: General: Yes no clubbing, cyanosis or edema <Tiffanie Villeda PA-C - Last Filed: 08/07/22 08:19> Objective Data Active Medications Duloxetine HCl (Duloxetine Hcl 20 Mg Capsule.Dr) 20 mg PO DAILY [facility] Last Admin: 08/06/22 08:43 Dose: Not Given Documented By: NURIS Non-Admin Reason: Patient Refused Heparin Sodium (Porcine) (Heparin Sodium,Porcine 5,000 Unit/Ml Vial) 5,000 unit SUBCUT Q8H [facility] Last Admin: 08/07/22 06:10 Dose: 5,000 unit Documented By: CONNIE Sodium Chloride (Ns) 1,000 mls @ 80 mls/hr IVCONT .[id number] [facility] Last Admin: 08/07/22 06:08 Dose: 80 mls/hr Documented By: CONNIE Piperacillin Sod/Tazobactam (Sod 3.375 gm/ Sodium Chloride) 50 mls @ 100 mls/hr IV Q6H [facility] Last Infusion: 08/07/22 03:52 Dose: 100 mls/hr Documented By: CONNIE Metoprolol Tartrate (Metoprolol Tartrate 25 Mg Tablet) 75 mg PO BID [facility]; Protocol Last Admin: 08/06/22 22:25 Dose: 75 mg Documented By: CONNIE Morphine Sulfate (Morphine Sulfate 2 Mg/Ml Cartridge) 3 mg IVPUSH Q4H PRN; Protocol PRN Reason: Pain, Severe (Pain Scale 7-10) Last Admin: 08/07/22 07:49 Dose: 3 mg Documented By: NIKOLE Ondansetron HCl (Ondansetron Hcl 4 Mg/2 Ml Vial) 4 mg IVPUSH Q8H PRN PRN Reason: Nausea and Vomiting Last Admin: 08/07/22 08:02 Dose: 4 mg Documented By: NIKOLE Oxycodone HCl (Oxycodone Hcl Immed Release 5 Mg Tablet) 5 mg PO Q6H PRN PRN Reason: Pain, Moderate (Pain Scale 4-6 Pharmacy Consult (Consult Rx Perform Med Rec) 1 each MISCELLANE ONCE PRN PRN Reason: Consult order Sodium Chloride (0.9 % Sodium Chloride Flush 3 Ml Syringe) [facility] Last Admin: 08/07/22 00:12 Dose: Not Given Documented By: CONNIE Non-Admin Reason: IV Running <Tiffanie Villeda PA-C - Last Filed: 08/07/22 08:19> Labs CBC & Chem 7: : 08/06/22 06:37 08/06/22 06:37 <NAVDEEP Soto Last Filed: 08/07/22 08:19> Procedures Date of Service Date of Service: 08/07/22 <Tiffanie Villeda PA-C - Last Filed: 08/07/22 08:19> Progress Note: A&P Assessment and plan (1) Intra-abdominal abscess: Status: Acute <Tiffanie Villeda PA-C - Last Filed: 08/07/22 08:19> Assessment and Plan: No new complaints some pain on lower abdomen she has been tolerating diet well abdomen soft and benign for CT drainage today or intra-abdominal abscess/ collection seen and examined independently patient understands plan <Deandre Hagan MD - Last Filed: 08/07/22 09:16> (2) S/P colectomy: Status: Acute <Tiffanie Villeda PA-C - Last Filed: 08/07/22 08:19> Assessment and Plan: Patient is a 62 year old female with complex history starting from laparotomy, sigmoid resection and colostomy 2021 for a perforation with jos fecal peritonitis likely due to stercoral ulceration in the distal sigmoid requiring ventilatory support in ICU for a few weeks, subsequently requiring multiple IR drainage for various intraabdominal fluid collections. 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 She gradually improved and was eventually transferred to rehab on . She developed incisional drainage with elevated WBC count at rehab and was sent to ED. She was found to have large fluid collection consistent with an intra-abdominal abscess?. Plan for IR drainage today. She is on IV zosyn. Hold tray until following drainage and then advance diet as tolerated. <Tiffanie Villeda PA-C - Last Filed: 08/07/22 08:19> Time Spent With Patient Time: Total time spent is greater than 50% in coordination of care (as documented) at patient's floor/unit and/or counseling patient: <Tiffanie Villeda PA-C - Last Filed: 08/07/22 08:19> Quality Stroke Does the patient have a stroke diagnosis?: No <Tiffanie Villeda PA-C - Last Filed: 08/07/22 08:19> VTE Prior VTE?: No <Tiffanie Villeda PA-C - Last Filed: 08/07/22 08:19> VTE Risk Level:: Medical - moderate - high <Tiffanie Villeda PA-C - Last Filed: 08/07/22 08:19> VTE Device Contraindication: N/A - Device Ordered <Tiffanie Villeda PA-C - Last Filed: 08/07/22 08:19> VTE Drug Contraindication: N/A - Med Ordered <Tiffanie Villeda PA-C - Last Filed: 08/07/22 08:19>
--- NOTE | 2022-08-07 11:41 | MHC.CM.PN ---
IMM DELIVERED NEW HCP DONE WITH PT[facility].
--- NOTE | 2022-08-07 12:45 | HO.RADPN ---
RADIOLOGY Narrative Narrative: 12 fr LLQ drain placed. 40 ml brown purulent appearing fluid removed. Specimen sent for culture.
--- NOTE | 2022-08-07 13:50 | PC.NURSE ---
patient has been in procedure today and meds late due to patient not on unit.
[2022-08-07] MEDS: Metoprolol Tartrate 25 MG TABLET 75 MG PO ×2 (15:54→20:06)
--- NOTE | 2022-08-07 16:24 | PM.EVENT ---
Event Note Date of Service: 08/07/22 Event Note: She underwent CT drainage with Dr. Kramer About 40 cc of pus drained She tolerated procedure She says she feels okay except for some pain Diet reordered Follow-up cultures Continue empiric antibiotics for now Doing well otherwise
--- NOTE | 2022-08-07 23:05 | PC.NURSE ---
pt went up hear at 14:30, vitals change to q4,
[2022-08-08 00:08] VITALS: BP 138/67; PULSE 88; RESP 18; TEMP 36.7; O2SAT 96
[2022-08-08] MEDS: Morphine Sulfate 2 MG/ML CARTRIDGE 3 MG IVPUSH ×3 (00:21→09:17)
[2022-08-08] MEDS: Piperacillin Sodium/Tazobactam 3.375 GM in 0.9 % Sodium Chloride 50 ML IV ×4 (02:46→20:52)
[2022-08-08 03:13] VITALS: BP 129/73; PULSE 96; RESP 18; TEMP 36.4; O2SAT 95
[2022-08-08] MEDS: oxyCODONE HCl Immed Release 5 MG TABLET PO ×2 (04:17→12:46)
[2022-08-08 07:00] VITALS: BP 156/73; PULSE 93; RESP 17; TEMP 36.3; O2SAT 97
[2022-08-08] MEDS: 0.9 % Sodium Chloride Flush 3 ML SYRINGE IVFLUSH (09:16)
[2022-08-08] MEDS: Heparin Sodium,Porcine 5,000 UNIT/ML VIAL 5000 UNIT SUBCUT ×3 (09:16→20:51)
[2022-08-08] MEDS: Metoprolol Tartrate 25 MG TABLET 75 MG PO ×3 (09:16→20:51)
[2022-08-08] MEDS: ondansetron HCL 4 MG/2 ML VIAL IVPUSH ×2 (09:17→20:51)
[2022-08-08] MEDS: SUMAtriptan succinate 50 MG TABLET PO (10:21)
[2022-08-08 11:00] VITALS: BP 128/61; PULSE 77; RESP 18; TEMP 36.8; O2SAT 98
--- NOTE | 2022-08-08 11:44 | P.PNGS_ITS ---
Subjective Subjective Date of Service: 08/08/22 <Deandre Hagan MD - Last Filed: 08/08/22 12:29> 08/08/22 <Tiffanie Villeda PA-C - Last Filed: 08/08/22 11:55> Interval history: C <Deandre Hagan MD - Last Filed: 08/08/22 12:29> Had drainage yesterday, uneventful. Reports some pain at drain site otherwise feeling much better. Tolerating diet. Does have some nausea but reports this is chronic. <Tiffanie Villeda PA-C - Last Filed: 08/08/22 11:55> Physical Exam Vital Signs: Vital Signs: Last Vital Signs Temp 98.3 F 08/08/22 11:00 Pulse 77 08/08/22 11:00 Resp 18 08/08/22 11:00 BP 128/61 08/08/22 11:00 Pulse Ox 98 08/08/22 11:00 O2 Del Method 08/08/22 11:00 O2 Flow Rate 1.0 08/08/22 11:00 BMI result Body Mass Index 27.7 <Deandre Hagan MD - Last Filed: 08/08/22 12:29> Const: General: comfortable, no acute distress and alert <Tiffanie Villeda PA-C - Last Filed: 08/08/22 11:55> Orientation/consciousness: patient oriented x3 <Tiffanie Villeda PA-C - Last Filed: 08/08/22 11:55> Resp: Effort & Inspection: normal respiratory effort <Tiffanie Villeda PA-C - Last Filed: 08/08/22 11:55> GI: Other: ostomy pink; drain with purulence in place <Tiffanie Villeda PA-C - Last Filed: 08/08/22 11:55> Inspection: No distended and Yes incision (no drainage noted, retention sutures in place) <Tiffanie Villeda PA-C - Last Filed: 08/08/22 11:55> Palpation (GI): Soft to palpation, Tenderness to palpation present (GI) (mild diffuse tenderness, drain site), no guarding and not rigid <Tiffanie Villeda PA-C - Last Filed: 08/08/22 11:55> Percussion: Yes normal to percussion <Tiffanie Villeda PA-C - Last Filed: 08/08/22 11:55> Skin: General skin exam: no rashes or lesions noted <Tiffanie Villeda PA-C - Last Filed: 08/08/22 11:55> Neuro: General: patient oriented x3 <Tiffanie Villeda PA-C - Last Filed: 08/08/22 11:55> Objective Data Active Medications Duloxetine HCl (Duloxetine Hcl 20 Mg Capsule.Dr) 20 mg PO DAILY [facility] Last Admin: 08/08/22 09:25 Dose: Not Given Documented By: EDYTA Non-Admin Reason: Patient Refused Heparin Sodium (Porcine) (Heparin Sodium,Porcine 5,000 Unit/Ml Vial) 5,000 unit SUBCUT Q8H [facility] Last Admin: 08/08/22 09:16 Dose: 5,000 unit Documented By: EDYTA Sodium Chloride (Ns) 1,000 mls @ 80 mls/hr IVCONT .[id number] [facility] Last Admin: 08/07/22 20:22 Dose: 80 mls/hr Documented By: DILEEP Piperacillin Sod/Tazobactam (Sod 3.375 gm/ Sodium Chloride) 50 mls @ 100 mls/hr IV Q6H [facility] Last Infusion: 08/08/22 10:20 Dose: 0 mls/hr Documented By: EDYTA Metoprolol Tartrate (Metoprolol Tartrate 25 Mg Tablet) 75 mg PO TID [facility]; Protocol Last Admin: 08/08/22 09:16 Dose: 75 mg Documented By: EDYTA Morphine Sulfate (Morphine Sulfate 2 Mg/Ml Cartridge) 3 mg IVPUSH Q4H PRN; Protocol PRN Reason: Pain, Severe (Pain Scale 7-10) Last Admin: 08/08/22 09:17 Dose: 3 mg Documented By: EDYTA Ondansetron HCl (Ondansetron Hcl 4 Mg/2 Ml Vial) 4 mg IVPUSH Q8H PRN PRN Reason: Nausea and Vomiting Last Admin: 08/08/22 09:17 Dose: 4 mg Documented By: EDYTA Oxycodone HCl (Oxycodone Hcl Immed Release 5 Mg Tablet) 5 mg PO Q6H PRN PRN Reason: Pain, Moderate (Pain Scale 4-6 Last Admin: 08/08/22 04:17 Dose: 5 mg Documented By: DILEEP Pharmacy Consult (Consult Rx Perform Med Rec) 1 each MISCELLANE ONCE PRN PRN Reason: Consult order Sodium Chloride (0.9 % Sodium Chloride Flush 3 Ml Syringe) 3 ml IVFLUSH [facility] Last Admin: 08/08/22 09:16 Dose: 3 ml Documented By: EDYTA Sumatriptan Succinate (Sumatriptan Succinate 50 Mg Tablet) 50 mg PO DAILY PRN PRN Reason: Headache Last Admin: 08/08/22 10:21 Dose: 50 mg Documented By: EDYTA <Deandre Hagan MD - Last Filed: 08/08/22 12:29> Labs CBC & Chem 7: : 08/06/22 06:37 08/06/22 06:37 <Deandre Hagan MD - Last Filed: 08/08/22 12:29> Microbiology Microbiology Results: Microbiology 08/07/22 12:05 Gram Stain - Final Abdominal Fluid Routine Culture - Preliminary No growth to date. Anaerobic Culture - Preliminary Culture in progress. <Deandre Hagan MD - Last Filed: 08/08/22 12:29> Procedures Date of Service Date of Service: 08/08/22 <Tiffanie Villeda PA-C - Last Filed: 08/08/22 11:55> Progress Note: A&P Assessment and plan (1) Intra-abdominal abscess: Status: Acute <Deandre Hagan MD - Last Filed: 08/08/22 12:29> Assessment and Plan: Underwent CT drainage yesterday Follow up on cultures Diet as tolerated Abdomen soft Stoma functioning well On IV antibiotics Drain care Exam benign otherwise no fever Continue current care Seen and examined independently <Deandre Hagan MD - Last Filed: 08/08/22 12:29> Assessment and Plan: Patient is a 62 year old female with complex history starting from laparotomy, sigmoid resection and colostomy Sept2021 for a perforation with jos fecal peritonitis likely due to stercoral ulceration in the distal sigmoid requiring ventilatory support in ICU for a few weeks, subsequently requiring multiple IR drainage for various intraabdominal fluid collections. 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 She gradually improved and was eventually transferred to rehab on . She developed incisional drainage with elevated WBC count at rehab and was sent to ED. She was found to have large fluid collection consistent with an intra-abdominal abscess . Underwent IR drainage yesterday- 40cc purulent output drained with drain left in place. Vitals improved. Remains non toxic appearing with relatively benign exam. Cont supportive measures and IV zosyn, regular diet. Keep drain in place. <Tiffanie Villeda PA-C - Last Filed: 08/08/22 11:55> Time Spent With Patient Time: Total time spent is greater than 50% in coordination of care (as documented) at patient's floor/unit and/or counseling patient: <Deandre Hagan MD - Last Filed: 08/08/22 12:29> Quality Stroke Does the patient have a stroke diagnosis?: No <Deandre Hagan MD - Last Filed: 08/08/22 12:29> VTE Prior VTE?: No <Deandre Hagan MD - Last Filed: 08/08/22 12:29> VTE Risk Level:: Medical - moderate - high <Deandre Hagan MD - Last Filed: 08/08/22 12:29> VTE Device Contraindication: N/A - Device Ordered <Deandre Hagan MD - Last Filed: 08/08/22 12:29> VTE Drug Contraindication: N/A - Med Ordered <Deandre Hagan MD - Last Filed: 08/08/22 12:29>
[2022-08-08] MEDS: HYDROmorphone HCl 0.5 MG/0.5 ML SYRINGE IVPUSH ×2 (14:25→22:21)
[2022-08-08] MEDS: 0.9 % Sodium Chloride 1,000 ML 80 ML IVCONT (15:08)
[2022-08-08 15:24] VITALS: BP 150/69; PULSE 90; RESP 19; TEMP 36.1; O2SAT 95
--- NOTE | 2022-08-08 16:36 | PM.EVENT ---
Event Note Date of Service: 08/08/22 Event Note: seen on afternoon rounds says she is okay appears comfortable nurse states that she still has for pain meds periodically abdomen soft stable vital signs abscess cultures show C. perfringens id consulted looks well otherwise
[2022-08-08 18:56] VITALS: BP 140/67; PULSE 95; RESP 18; TEMP 36.8; O2SAT 96
[2022-08-08] MEDS: oxyCODONE HCl Immed Release 5 MG TABLET 10 MG PO (19:50)
[2022-08-09 00:10] VITALS: BP 143/67; PULSE 88; RESP 18; TEMP 36.3; O2SAT 98
[2022-08-09] MEDS: HYDROmorphone HCl 0.5 MG/0.5 ML SYRINGE IVPUSH ×5 (02:30→23:54)
[2022-08-09] MEDS: Piperacillin Sodium/Tazobactam 3.375 GM in 0.9 % Sodium Chloride 50 ML IV ×4 (03:00→20:42)
[2022-08-09 04:00] VITALS: BP 146/73; PULSE 92; RESP 18; TEMP 36.2; O2SAT 96
[2022-08-09 07:43] VITALS: BP 161/77; PULSE 98; RESP 18; TEMP 36.8; O2SAT 96
[2022-08-09] MEDS: ondansetron HCL 4 MG/2 ML VIAL IVPUSH ×2 (08:00→19:34)
[2022-08-09] MEDS: Metoprolol Tartrate 25 MG TABLET 75 MG PO ×3 (08:02→20:42)
[2022-08-09] MEDS: oxyCODONE HCl Immed Release 5 MG TABLET 10 MG PO (08:03)
[2022-08-09] MEDS: Heparin Sodium,Porcine 5,000 UNIT/ML VIAL 5000 UNIT SUBCUT ×2 (08:03→23:32)
[2022-08-09] MEDS: 0.9 % Sodium Chloride Flush 3 ML SYRINGE IVFLUSH ×2 (08:04→14:18)
--- NOTE | 2022-08-09 08:56 | PM.PNGS ---
Subjective Subjective Date of Service: 08/10/22 Interval history: Says she had wet her bed with Also states that her stoma appliance leak so she is miserable Hungry and wants to eat regular food not ?bland? diet Says she has pain on the drain site Physical Exam Vital Signs: Vital Signs: Last Vital Signs Temp 98.3 F 08/09/22 07:43 Pulse 98 08/09/22 07:43 Resp 18 08/09/22 07:43 BP 161/77 H 08/09/22 07:43 Pulse Ox 96 08/09/22 07:43 O2 Del Method 08/09/22 07:43 O2 Flow Rate 2 08/09/22 07:43 BMI result Body Mass Index 27.7 Const: Other: fully conversant General: comfortable Resp: Other: Mild shortness of breath as baseline Effort & Inspection: normal respiratory effort Cardio: Rate: regular rate GI: Other: Soft, drain in place, sero purulent Objective Data Active Medications Duloxetine HCl (Duloxetine Hcl 20 Mg Capsule.Dr) 20 mg PO DAILY [facility] Last Admin: 08/09/22 08:06 Dose: Not Given Documented By: WILL Non-Admin Reason: Patient Refused Heparin Sodium (Porcine) (Heparin Sodium,Porcine 5,000 Unit/Ml Vial) 5,000 unit SUBCUT Q8H [facility] Last Admin: 08/09/22 08:03 Dose: 5,000 unit Documented By: WILL Hydromorphone HCl (Hydromorphone Hcl 0.5 Mg/0.5 Ml Syringe) 0.5 mg IVPUSH Q4H PRN; Protocol PRN Reason: Pain, Severe (Pain Scale 7-10) Last Admin: 08/09/22 02:30 Dose: 0.5 mg Documented By: NUPUR Sodium Chloride (Ns) 1,000 mls @ 80 mls/hr IVCONT .[id number] [facility] Last Infusion: 08/09/22 08:56 Dose: 0 mls/hr Documented By: WILL Piperacillin Sod/Tazobactam (Sod 3.375 gm/ Sodium Chloride) 50 mls @ 100 mls/hr IV Q6H [facility] Last Admin: 08/09/22 08:04 Dose: 100 mls/hr Documented By: WILL Metoprolol Tartrate (Metoprolol Tartrate 25 Mg Tablet) 75 mg PO TID [facility]; Protocol Last Admin: 08/09/22 08:02 Dose: 75 mg Documented By: WILL Ondansetron HCl (Ondansetron Hcl 4 Mg/2 Ml Vial) 4 mg IVPUSH Q8H PRN PRN Reason: Nausea and Vomiting Last Admin: 08/09/22 08:00 Dose: 4 mg Documented By: WILL Oxycodone HCl (Oxycodone Hcl Immed Release 5 Mg Tablet) 5 mg PO Q6H PRN PRN Reason: Pain, Moderate (Pain Scale 4-6 Last Admin: 08/08/22 12:46 Dose: 5 mg Documented By: EDYTA Oxycodone HCl (Oxycodone Hcl Immed Release 5 Mg Tablet) 10 mg PO Q4H PRN PRN Reason: Pain, Severe (Pain Scale 7-10) Last Admin: 08/09/22 08:03 Dose: 10 mg Documented By: WILL Pharmacy Consult (Consult Rx Perform Med Rec) 1 each MISCELLANE ONCE PRN PRN Reason: Consult order Sodium Chloride (0.9 % Sodium Chloride Flush 3 Ml [facility]ringe) [facility] Last Admin: 08/09/22 08:04 Dose: 3 ml Documented By: WILL Sumatriptan Succinate (Sumatriptan Succinate 50 Mg Tablet) 50 mg PO DAILY PRN PRN Reason: Headache Last Admin: 08/08/22 10:21 Dose: 50 mg Documented By: EDYTA Labs CBC & Chem 7: 08/09/22 09:06 08/09/22 09:06 Microbiology Microbiology Results: Microbiology 08/07/22 12:05 Gram Stain - Final Abdominal Fluid Routine Culture - Final No growth after 2 days Anaerobic Culture - Final Clostridium perfringens Procedures Date of Service Date of Service: 08/09/22 Progress Note: A&P Assessment and plan (1) Intra-abdominal abscess: Status: Acute Assessment and Plan: Status post CT drain Culture showed C perfringens - Dr. Nielsen of ID informed She looks well otherwise Abdomen soft Stoma functioning well Encouraged to get out of bed and increased level of activity PT consult On diet Time Spent With Patient Time: Total time spent is greater than 50% in coordination of care (as documented) at patient's floor/unit and/or counseling patient: Quality Stroke Does the patient have a stroke diagnosis?: No VTE Prior VTE?: No VTE Risk Level:: Medical - moderate - high VTE Device Contraindication: N/A - Device Ordered VTE Drug Contraindication: N/A - Med Ordered
[2022-08-09 09:15] LABS: Hematocrit 28.5 % (37.0-47.0); Hemoglobin 9.3 g/dl (12.0-16.0); Mean Corpuscular HGB Conc 32.6 g/dl (31.0-35.0); Mean Corpuscular Hemoglobin 28.6 pg (27.0-33.0); Mean Corpuscular Volume 87.7 fL (80.0-98.0); Platelet Count 268 X10*3/uL (160-400); Red Blood Count 3.25 X10*6/uL (4.20-5.50); Red Cell Distribution Width 14.5 % (11.0-16.0); White Blood Count 8.8 X10*3/uL (4.8-10.8)
[2022-08-09 09:37] LABS: Blood Urea Nitrogen 4 mg/dL (9-16); Calcium 8.4 mg/dL (8.4-10.2); Creatinine Clr Calc Pharmacy 118.7; Estimated Glomerular Filt Rate > 60; Glucose Random 139 mg/dL (60-115)
[2022-08-09 10:00] LABS: Anion Gap 14 (12-20); Carbon Dioxide 29 mmol/L (22-29); Chloride 98 mmol/L (96-108); Potassium 2.6 mmol/L (3.3-5.1); Sodium 138 mmol/L (135-145)
[2022-08-09] MEDS: 0.9 % Sodium Chloride 1,000 ML 80 ML IVCONT ×2 (10:29→23:35)
[2022-08-09 11:44] VITALS: BP 143/67; PULSE 81; RESP 18; TEMP 36.8; O2SAT 97
--- NOTE | 2022-08-09 13:54 | MHC.CLN ---
NUTRITION DIET=REGULAR. PATIENT WOULD LIKE ENSURE PUDDING AT SUPPER. PROVIDES 170 KCALS, 4 G PROTEIN. GSR AWARE. INTAKE VARIABLE, 25-100%. FOLLOW FOR INTAKE AND WEIGHT.
[2022-08-09 15:07] VITALS: BP 152/74; PULSE 83; RESP 18; TEMP 36.2; O2SAT 98
[2022-08-09] MEDS: Calcium Carbonate 750 MG TAB.CHEW PO (17:54)
[2022-08-09 19:17] VITALS: BP 171/81; PULSE 90; RESP 20; TEMP 36.6; O2SAT 96
[2022-08-10 00:02] VITALS: BP 148/80; PULSE 84; RESP 17; TEMP 36.4; O2SAT 96
[2022-08-10] MEDS: Piperacillin Sodium/Tazobactam 3.375 GM in 0.9 % Sodium Chloride 50 ML IV ×4 (02:50→20:29)
[2022-08-10 03:41] VITALS: BP 152/82; PULSE 85; RESP 18; TEMP 36.2; O2SAT 97
[2022-08-10] MEDS: HYDROmorphone HCl 0.5 MG/0.5 ML SYRINGE IVPUSH ×5 (03:58→22:30)
[2022-08-10 08:00] VITALS: BP 166/79; PULSE 88; RESP 18; TEMP 36.3; O2SAT 99
[2022-08-10] MEDS: ondansetron HCL 4 MG/2 ML VIAL IVPUSH ×2 (08:48→22:30)
[2022-08-10] MEDS: Heparin Sodium,Porcine 5,000 UNIT/ML VIAL 5000 UNIT SUBCUT ×2 (08:57→15:43)
--- NOTE | 2022-08-10 09:43 | P.PNGS_ITS ---
Subjective Subjective Date of Service: 08/11/22 Interval history: Says she has some nausea and pain Stoma functioning well No fever Physical Exam Vital Signs: Vital Signs: Last Vital Signs Temp 97.4 F 08/10/22 08:00 Pulse 88 08/10/22 08:00 Resp 18 08/10/22 08:00 BP 166/79 H 08/10/22 08:00 Pulse Ox 99 08/10/22 08:00 O2 Del Method 08/10/22 08:00 O2 Flow Rate 2 08/10/22 08:00 BMI result Body Mass Index 27.7 Const: General: no acute distress Resp: Other: Mild shortness of breath as per baseline Cardio: Rate: regular rate GI: Other: Soft, stoma with output, tenderness on the lower abdomen Objective Data Active Medications Calcium Carbonate (Calcium Carbonate 750 Mg Tab.Chew) 750 mg PO Q4H PRN PRN Reason: Heartburn Last Admin: 08/09/22 17:54 Dose: 750 mg Documented By: WILL Duloxetine HCl (Duloxetine Hcl 20 Mg Capsule.Dr) 20 mg PO DAILY [facility] Last Admin: 08/10/22 08:57 Dose: Not Given Documented By: MIRNA Non-Admin Reason: Patient Refused Heparin Sodium (Porcine) (Heparin Sodium,Porcine 5,000 Unit/Ml Vial) 5,000 unit SUBCUT Q8H [facility] Last Admin: 08/10/22 08:57 Dose: 5,000 unit Documented By: MIRNA Hydromorphone HCl (Hydromorphone Hcl 0.5 Mg/0.5 Ml Syringe) 0.5 mg IVPUSH Q4H PRN; Protocol PRN Reason: Pain, Severe (Pain Scale 7-10) Last Admin: 08/10/22 08:48 Dose: 0.5 mg Documented By: MIRNA Sodium Chloride (Ns) 1,000 mls @ 80 mls/hr IVCONT .[id number] [facility] Last Admin: 08/09/22 23:35 Dose: 80 mls/hr Documented By: SHANTI Piperacillin Sod/Tazobactam (Sod 3.375 gm/ Sodium Chloride) 50 mls @ 100 mls/hr IV Q6H [facility] Last Admin: 08/10/22 08:54 Dose: 100 mls/hr Documented By: MIRNA Metoprolol Tartrate (Metoprolol Tartrate 25 Mg Tablet) 75 mg PO TID [facility]; Protocol Last Admin: 08/09/22 20:42 Dose: 75 mg Documented By: SHANTI Ondansetron HCl (Ondansetron Hcl 4 Mg/2 Ml Vial) 4 mg IVPUSH Q8H PRN PRN Reason: Nausea and Vomiting Last Admin: 08/10/22 08:48 Dose: 4 mg Documented By: MIRNA Oxycodone HCl (Oxycodone Hcl Immed Release 5 Mg Tablet) 5 mg PO Q6H PRN PRN Reason: Pain, Moderate (Pain Scale 4-6 Last Admin: 08/08/22 12:46 Dose: 5 mg Documented By: EDYTA Oxycodone HCl (Oxycodone Hcl Immed Release 5 Mg Tablet) 10 mg PO Q4H PRN PRN Reason: Pain, Severe (Pain Scale 7-10) Last Admin: 08/09/22 08:03 Dose: 10 mg Documented By: WILL Pharmacy Consult (Consult Rx Perform Med Rec) 1 each MISCELLANE ONCE PRN PRN Reason: Consult order Sodium Chloride (0.9 % Sodium Chloride Flush 3 Ml Syringe) 3 ml IVFLUSH [facility] Last Admin: 08/10/22 08:16 Dose: Not Given Documented By: MIRNA Non-Admin Reason: IV Running Sumatriptan Succinate (Sumatriptan Succinate 50 Mg Tablet) 50 mg PO DAILY PRN PRN Reason: Headache Last Admin: 08/08/22 10:21 Dose: 50 mg Documented By: EDYTA Labs CBC & Chem 7: 08/09/22 09:06 08/11/22 05:18 Labs: Laboratory Results - last 24 hr 08/09/22 09:06 Anion Gap 14 Microbiology Microbiology Results: Microbiology 08/07/22 12:05 Gram Stain - Final Abdominal Fluid Routine Culture - Final No growth after 2 days Anaerobic Culture - Final Clostridium perfringens Procedures Date of Service Date of Service: 08/10/22 Progress Note: A&P Time Spent With Patient Time: Total time spent is greater than 50% in coordination of care (as documented) at patient's floor/unit and/or counseling patient: Quality Stroke Does the patient have a stroke diagnosis?: No VTE Prior VTE?: No VTE Risk Level:: Medical - moderate - high VTE Device Contraindication: N/A - Device Ordered VTE Drug Contraindication: N/A - Med Ordered
[2022-08-10] MEDS: KCl 20 mEq in 0.9 % Sodium ChL 20 MEQ/1,000 ML IV.SOLN 80 MEQ IVCONT (10:11)
[2022-08-10] MEDS: Metoprolol Tartrate 25 MG TABLET 75 MG PO ×3 (10:30→20:30)
[2022-08-10] MEDS: Potassium Chloride ER 20 MEQ TAB.ER.PRT 40 MEQ PO ×2 (10:30→20:30)
--- NOTE | 2022-08-10 11:41 | P.CDIC_ITS ---
CDI Concurrent Query Documentation Clarification: PHYSICIAN'S DOCUMENTATION REQUEST Date of Query: 08/10/22 114 Patient Name: Ju Hankins Admit Date: 08/05/22 Dear Doctor, A review of the medical record indicates additional documentation may be needed. Please review below and update the documentation accordingly. Clinical Indicators: Is there a diagnosis that correlates with these lab findings below: Risk Factors/Clinical Indicators/Treatments Labs: Potassium on 08/09: 2.6 Administered medications: Multiple doses of potassium chloride Based on the above, could you clarify in the Progress Notes the appropriate diagnosis, if significant, that supports the above abnormalities and additional evaluation, monitoring, and/or treatment rendered: * Hypokalemia * Labs indicate a diagnosis of (please specify) * Other (please specify) * Unable to determine Use of terms such as suspected, likely, concern for, or probable (associated with a specific diagnosis that is being evaluated, monitored, or treated as if it exists) are acceptable and can be coded in the inpatient setting, when documented at the time of discharge. Thank you, Brynn An MS, RN, CCRN Extension: [phone] Please use your independent medical judgment in providing your response. THIS QUERY IS PART OF THE PERMANENT MEDICAL RECORD Provider Response: Other (Hypokalemia) Other Diagnosis: Hypokalemia
[2022-08-10 12:00] VITALS: BP 168/81; PULSE 92; RESP 18; TEMP 36.3
[2022-08-10] MEDS: iohexoL 350 MG/ML 100 ML INFUS..BTL IV (12:50)
[2022-08-10] MEDS: metroNIDAZOLE/NS 500 MG/100 ML PIGGYBACK 100 MG IV ×2 (13:35→21:16)
[2022-08-10 15:31] VITALS: BP 147/76; PULSE 88; RESP 18; TEMP 36.9; O2SAT 99
[2022-08-10] MEDS: 0.9 % Sodium Chloride Flush 3 ML SYRINGE IVFLUSH (15:40)
--- NOTE | 2022-08-10 16:45 | PM.EVENT ---
Event Note Date of Service: 08/10/22 Event Note: seen on afternoon rounds CT shows persistent abscess - no official read yet - plan repeat CT drain jessica with Dr. Kramer pt says she has had no vomitting stoma functioning abd soft K replaced dw Dr. Nielsen re cultures - Flagyl added explained plan to pt and Ryan
[2022-08-10 19:00] VITALS: BP 144/75; PULSE 90; RESP 18; TEMP 37.1; O2SAT 98
[2022-08-10] MEDS: Calcium Carbonate 750 MG TAB.CHEW PO (19:20)
[2022-08-11] VITALS (8 sets, daily range): BP systolic 138–188; BP diastolic 73–98; PULSE 79–88; RESP 14–20; TEMP 36.3–36.7; O2SAT 94–100
[2022-08-11] MEDS: HYDROmorphone HCl 0.5 MG/0.5 ML SYRINGE IVPUSH ×5 (02:27→20:06)
[2022-08-11] MEDS: Piperacillin Sodium/Tazobactam 3.375 GM in 0.9 % Sodium Chloride 50 ML IV ×4 (02:27→20:06)
[2022-08-11] MEDS: KCl 20 mEq in 0.9 % Sodium ChL 20 MEQ/1,000 ML IV.SOLN 80 MEQ IVCONT ×2 (02:28→20:21)
[2022-08-11] MEDS: metroNIDAZOLE/NS 500 MG/100 ML PIGGYBACK 100 MG IV ×3 (05:02→22:58)
[2022-08-11] MEDS: Heparin Sodium,Porcine 5,000 UNIT/ML VIAL 5000 UNIT SUBCUT ×3 (06:33→22:58)
[2022-08-11 06:37] LABS: Anion Gap 12 (12-20); Blood Urea Nitrogen < 3 mg/dL (9-16); Calcium 8.6 mg/dL (8.4-10.2); Carbon Dioxide 32 mmol/L (22-29); Chloride 97 mmol/L (96-108); Creatinine Clr Calc Pharmacy 118.7; Estimated Glomerular Filt Rate > 60; Glucose Random 89 mg/dL (60-115); Potassium 3.3 mmol/L (3.3-5.1); Sodium 138 mmol/L (135-145)
[2022-08-11] MEDS: ondansetron HCL 4 MG/2 ML VIAL IVPUSH ×2 (06:40→22:58)
[2022-08-11] MEDS: Metoprolol Tartrate 25 MG TABLET 75 MG PO ×3 (08:41→20:05)
--- NOTE | 2022-08-11 10:41 | P.PNGS_ITS ---
Subjective Subjective Date of Service: 08/14/22 Interval history: decribes some pain on abdomen says she ate last night - tolerated this stoma functioning Physical Exam Vital Signs: Vital Signs: Last Vital Signs Temp 97.6 F 08/11/22 07:00 Pulse 88 08/11/22 07:00 Resp 18 08/11/22 07:00 BP 164/83 H 08/11/22 07:00 Pulse Ox 97 08/11/22 07:00 O2 Del Method 08/11/22 07:00 O2 Flow Rate 1 08/11/22 07:00 BMI result Body Mass Index 27.7 Const: General: no acute distress Resp: Other: mild SOB as baseline Cardio: Rate: regular rate GI: Other: soft, some tenderness mostly on lower part, drain in place, output purulent Objective Data Active Medications Calcium Carbonate (Calcium Carbonate 750 Mg Tab.Chew) 750 mg PO Q4H PRN PRN Reason: Heartburn Last Admin: 08/10/22 19:20 Dose: 750 mg Documented By: SHANTI Duloxetine HCl (Duloxetine Hcl 20 Mg Capsule.Dr) 20 mg PO DAILY [facility] Last Admin: 08/11/22 08:40 Dose: Not Given Documented By: MIRNA Non-Admin Reason: Patient Refused Heparin Sodium (Porcine) (Heparin Sodium,Porcine 5,000 Unit/Ml Vial) 5,000 unit SUBCUT Q8H [facility] Last Admin: 08/11/22 06:33 Dose: 5,000 unit Documented By: SHANTI Hydromorphone HCl (Hydromorphone Hcl 0.5 Mg/0.5 Ml Syringe) 0.5 mg IVPUSH Q4H PRN; Protocol PRN Reason: Pain, Severe (Pain Scale 7-10) Last Admin: 08/11/22 06:33 Dose: 0.5 mg Documented By: SHANTI Piperacillin Sod/Tazobactam (Sod 3.375 gm/ Sodium Chloride) 50 mls @ 100 mls/hr IV Q6H [facility] Last Admin: 08/11/22 08:42 Dose: 100 mls/hr Documented By: MIRNA Potassium Chloride/Sodium Chloride (Kcl 20 Meq In 0.9 % Sodium Chl) 20 meq in 1,000 mls @ 80 mls/hr IVCONT .[id number] [facility] Last Admin: 08/11/22 02:28 Dose: 80 mls/hr Documented By: SHANTI Metronidazole (Flagyl) 500 mg in 100 mls @ 100 mls/hr IV Q8H [facility] Last Infusion: 08/11/22 06:03 Dose: 0 mls/hr Documented By: SHANTI Metoprolol Tartrate (Metoprolol Tartrate 25 Mg Tablet) 75 mg PO TID [facility]; Protoc ol Last Admin: 08/11/22 08:41 Dose: 75 mg Documented By: MIRNA Pt Own (Pantoprazole [Protonix] 40 Mg Tablet,Delayed Release (Dr/Ec)) 40 mg PO DAILY [facility] Ondansetron HCl (Ondansetron Hcl 4 Mg/2 Ml Vial) 4 mg IVPUSH Q8H PRN PRN Reason: Nausea and Vomiting Last Admin: 08/11/22 06:40 Dose: 4 mg Documented By: SHANTI Oxycodone HCl (Oxycodone Hcl Immed Release 5 Mg Tablet) 10 mg PO Q4H PRN PRN Reason: Pain, Severe (Pain Scale 7-10) Last Admin: 08/09/22 08:03 Dose: 10 mg Documented By: WILL Pharmacy Consult (Consult Rx Perform Med Rec) 1 each MISCELLANE ONCE PRN PRN Reason: Consult order Sodium Chloride (0.9 % Sodium Chloride Flush 3 Ml Syringe) [facility] Last Admin: 08/11/22 07:08 Dose: Not Given Documented By: MIRNA Non-Admin Reason: IV Running Sumatriptan Succinate (Sumatriptan Succinate 50 Mg Tablet) 50 mg PO DAILY PRN PRN Reason: Headache Last Admin: 08/08/22 10:21 Dose: 50 mg Documented By: EDYTA Labs CBC & Chem 7: 08/09/22 09:06 08/11/22 05:18 Labs: Laboratory Results - last 24 hr 08/11/22 05:18 Anion Gap 12 Estim Creat Clear Calc 118.7 Estimated GFR > 60 Random Glucose 89 Calcium 8.6 Procedures Date of Service Date of Service: 08/11/22 Progress Note: A&P Assessment and plan (1) Intra-abdominal abscess: Status: Acute Assessment and Plan: CT done yesterday - persistent abscess ordered repeat CT drain for today on Zosyn and Flagyl - reviewed with Dr. Gia Fisher replacement stoma functioning on pain meds PT/OT Time Spent With Patient Time: Total time spent is greater than 50% in coordination of care (as documented) at patient's floor/unit and/or counseling patient: Quality Stroke Does the patient have a stroke diagnosis?: No VTE Prior VTE?: No VTE Risk Level:: Medical - moderate - high VTE Device Contraindication: N/A - Device Ordered VTE Drug Contraindication: N/A - Med Ordered
--- NOTE | 2022-08-11 13:31 | MHC.CLN ---
F/U DIET=REGULAR. ENSURE PUDDING AT SUPPER PROVIDES 170 KCALS, 4 G PROTEIN. DOES NOT WANT ENSURE SUPPLEMENT. INTAKE VARIABLE, 25-100%. STAGE II WOUND TO COCCYX. FOLLOW FOR INTAKE, WEIGHT AND SKIN.
--- NOTE | 2022-08-11 15:53 | PM.EVENT ---
Event Note Date of Service: 08/14/22 Event Note: Second CT drain done this afternoon 50 cc of purulent fluid drained patient tolerated procedure well currently eating does complain of pain ondrain sights abdomen soft encourage oral intake to increase PT/OT
[2022-08-12] MEDS: HYDROmorphone HCl 0.5 MG/0.5 ML SYRINGE IVPUSH ×6 (00:11→20:19)
[2022-08-12] MEDS: Piperacillin Sodium/Tazobactam 3.375 GM in 0.9 % Sodium Chloride 50 ML IV ×4 (03:39→20:19)
[2022-08-12 03:45] VITALS: BP 154/82; PULSE 84; RESP 16; TEMP 36.1; O2SAT 98
[2022-08-12] MEDS: Heparin Sodium,Porcine 5,000 UNIT/ML VIAL 5000 UNIT SUBCUT ×2 (06:38→15:19)
[2022-08-12 07:28] VITALS: BP 181/88; PULSE 91; RESP 12; TEMP 36.6; O2SAT 98
[2022-08-12] MEDS: Metoprolol Tartrate 25 MG TABLET 75 MG PO ×3 (07:36→20:19)
[2022-08-12] MEDS: metroNIDAZOLE/NS 500 MG/100 ML PIGGYBACK 100 MG IV ×3 (07:37→22:58)
[2022-08-12] MEDS: ondansetron HCL 4 MG/2 ML VIAL IVPUSH ×2 (08:27→16:25)
--- NOTE | 2022-08-12 09:29 | PM.PNGS ---
Subjective Subjective Date of Service: 08/12/22 Interval history: Patient mainly complains of nausea this morning. Was able to tolerate regular diet yesterday after IR drainage procedure. abdominal pain is controlled with current medications. Physical Exam Vital Signs: Vital Signs: Last Vital Signs Temp 97.9 F 08/12/22 07:28 Pulse 91 08/12/22 07:28 Resp 12 08/12/22 07:28 BP 181/88 H 08/12/22 07:28 Pulse Ox 98 08/12/22 07:28 O2 Del Method 08/12/22 07:28 O2 Flow Rate 1 08/12/22 07:28 BMI result Body Mass Index 27.7 Const: General: no acute distress Nutritional Appearance: well nourished Orientation/consciousness: patient oriented x3 Resp: Other: Breathing comfortably with nasal O2, no respiratory distress GI: Other: new IR drain with no output noted. Previous drain in left upper quadrant is producing purulent-appearing material. Skin: Other: Warm, dry, no rash Neuro: General: patient oriented x3 Objective Data Active Medications Calcium Carbonate (Calcium Carbonate 750 Mg Tab.Chew) 750 mg PO Q4H PRN PRN Reason: Heartburn Last Admin: 08/10/22 19:20 Dose: 750 mg Documented By: SHANTI Heparin Sodium (Porcine) (Heparin Sodium,Porcine 5,000 Unit/Ml Vial) 5,000 unit SUBCUT Q8H [facility] Last Admin: 08/12/22 06:38 Dose: 5,000 unit Documented By: MANUEL Hydromorphone HCl (Hydromorphone Hcl 0.5 Mg/0.5 Ml Syringe) 0.5 mg IVPUSH Q4H PRN; Protocol PRN Reason: Pain, Severe (Pain Scale 7-10) Last Admin: 08/12/22 08:27 Dose: 0.5 mg Documented By: MOI Piperacillin Sod/Tazobactam (Sod 3.375 gm/ Sodium Chloride) 50 mls @ 100 mls/hr IV Q6H [facility] Last Admin: 08/12/22 09:19 Dose: 100 mls/hr Documented By: MOI Potassium Chloride/Sodium Chloride (Kcl 20 Meq In 0.9 % Sodium Chl) 20 meq in 1,000 mls @ 80 mls/hr IVCONT .[id number] [facility] Last Admin: 08/11/22 20:21 Dose: 80 mls/hr Documented By: MANUEL Metronidazole (Flagyl) 500 mg in 100 mls @ 100 mls/hr IV Q8H [facility] Last Infusion: 08/12/22 09:02 Dose: 0 mls/hr Documented By: MOI Metoprolol Tartrate (Metoprolol Tartrate 25 Mg Tablet) 75 mg PO TID [facility]; Protocol Last Admin: 08/12/22 07:36 Dose: 75 mg Documented By: MOI Pt Own (Pantoprazole [Protonix] 40 Mg Tablet,Delayed Release (Dr/Ec)) 40 mg PO DAILY [facility] Last Admin: 08/12/22 07:39 Dose: 40 mg Documented By: MOI Ondansetron HCl (Ondansetron Hcl 4 Mg/2 Ml Vial) 4 mg IVPUSH Q8H PRN PRN Reason: Nausea and Vomiting Last Admin: 08/12/22 08:27 Dose: 4 mg Documented By: MOI Oxycodone HCl (Oxycodone Hcl Immed Release 5 Mg Tablet) 10 mg PO Q4H PRN PRN Reason: Pain, Severe (Pain Scale 7-10) Last Admin: 08/09/22 08:03 Dose: 10 mg Documented By: WILL Pharmacy Consult (Consult Rx Perform Med Rec) 1 each MISCELLANE ONCE PRN PRN Reason: Consult order Scopolamine (Scopolamine 1.5 Mg Patch.Td.3) 1.5 mg EAR-BEHIND Q72H [facility] Sodium Chloride (0.9 % Sodium Chloride Flush 3 Ml Syringe) 3 ml IVFLUSH QSHIFT [facility] Last Admin: 08/12/22 07:37 Dose: Not Given Documented By: MOI Non-Admin Reason: IV Running Sumatriptan Succinate (Sumatriptan Succinate 50 Mg Tablet) 50 mg PO DAILY PRN PRN Reason: Headache Last Admin: 08/08/22 10:21 Dose: 50 mg Documented By: EDYTA Labs CBC & Chem 7: 08/09/22 09:06 08/11/22 05:18 Procedures Date of Service Date of Service: 08/12/22 Progress Note: A&P Assessment and plan (1) Intra-abdominal abscess: Status: Acute Assessment and Plan: IR drainage performed yesterday. New NOHEMI intact without much output. Continue Flagyl and Zosyn as per ID will start scopolamine patch for nausea stoma functioning on pain meds PT/OT Time Spent With Patient Time: Total time spent is greater than 50% in coordination of care (as documented) at patient's floor/unit and/or counseling patient: Quality Stroke Does the patient have a stroke diagnosis?: No VTE Prior VTE?: No VTE Risk Level:: Medical - moderate - high VTE Device Contraindication: N/A - Device Ordered VTE Drug Contraindication: N/A - Med Ordered
[2022-08-12] MEDS: Scopolamine 1.5 MG PATCH.TD.3 EAR-BEHIND (09:47)
[2022-08-12] MEDS: KCl 20 mEq in 0.9 % Sodium ChL 20 MEQ/1,000 ML IV.SOLN 80 MEQ IVCONT (12:24)
[2022-08-12 15:08] VITALS: BP 141/71; PULSE 89; RESP 18; TEMP 36.6; O2SAT 98
[2022-08-12 19:30] VITALS: BP 154/75; PULSE 74; RESP 18; TEMP 36.8; O2SAT 99
[2022-08-13] MEDS: HYDROmorphone HCl 0.5 MG/0.5 ML SYRINGE IVPUSH ×6 (00:22→21:43)
[2022-08-13] MEDS: KCl 20 mEq in 0.9 % Sodium ChL 20 MEQ/1,000 ML IV.SOLN 80 MEQ IVCONT ×2 (00:23→15:34)
[2022-08-13] MEDS: ondansetron HCL 4 MG/2 ML VIAL IVPUSH ×3 (00:23→16:44)
[2022-08-13 03:34] VITALS: BP 159/77; PULSE 84; RESP 16; TEMP 36.9; O2SAT 95
[2022-08-13] MEDS: Piperacillin Sodium/Tazobactam 3.375 GM in 0.9 % Sodium Chloride 50 ML IV ×4 (03:59→21:52)
[2022-08-13] MEDS: Heparin Sodium,Porcine 5,000 UNIT/ML VIAL 5000 UNIT SUBCUT ×3 (04:03→23:44)
[2022-08-13 07:54] VITALS: BP 177/84; PULSE 90; RESP 18; TEMP 37.3; O2SAT 96
--- NOTE | 2022-08-13 08:33 | P.PNGS_ITS ---
Subjective Subjective Date of Service: 08/13/22 Interval history: Reports nausea this morning but was able to tolerate lunch and dinner yesterday. Did have some benefit from scopolamine but seems to be waning this morning. Physical Exam Vital Signs: Vital Signs: Last Vital Signs Temp 99.2 F 08/13/22 07:54 Pulse 90 08/13/22 07:54 Resp 18 08/13/22 07:54 BP 177/84 H 08/13/22 07:54 Pulse Ox 96 08/13/22 07:54 O2 Del Method 08/13/22 07:54 O2 Flow Rate 1.0 08/12/22 19:30 BMI result Body Mass Index 27.7 Const: General: no acute distress Nutritional Appearance: well nourished Orientation/consciousness: patient oriented x3 Resp: Other: Breathing comfortably with nasal O2, no respiratory distress GI: Other: new IR drain with creamy white discharge. Previous drain in left upper quadrant is producing purulent-appearing material. ostomy patent in producing stool. Skin: Other: Warm, dry, no rash Neuro: General: patient oriented x3 Objective Data Active Medications Calcium Carbonate (Calcium Carbonate 750 Mg Tab.Chew) 750 mg PO Q4H PRN PRN Reason: Heartburn Last Admin: 08/10/22 19:20 Dose: 750 mg Documented By: SHANTI Heparin Sodium (Porcine) (Heparin Sodium,Porcine 5,000 Unit/Ml Vial) 5,000 unit SUBCUT Q8H [facility] Last Admin: 08/13/22 04:03 Dose: 5,000 unit Documented By: MANUEL Hydromorphone HCl (Hydromorphone Hcl 0.5 Mg/0.5 Ml Syringe) 0.5 mg IVPUSH Q4H PRN; Protocol PRN Reason: Pain, Severe (Pain Scale 7-10) Last Admin: 08/13/22 04:37 Dose: 0.5 mg Documented By: MANUEL Piperacillin Sod/Tazobactam (Sod 3.375 gm/ Sodium Chloride) 50 mls @ 100 mls/hr IV Q6H [facility] Last Infusion: 08/13/22 04:31 Dose: 0 mls/hr Documented By: MANUEL Metronidazole (Flagyl) 500 mg in 100 mls @ 100 mls/hr IV Q8H [facility] Last Infusion: 08/13/22 00:12 Dose: 0 mls/hr Documented By: MANUEL Potassium Chloride/Sodium Chloride (Kcl 20 Meq In 0.9 % Sodium Chl) 20 meq in 1,000 mls @ 80 mls/hr IVCONT .[id number] [facility] Last Admin: 08/13/22 00:23 Dose: 80 mls/hr Documented By: MANUEL Metoprolol Tartrate (Metoprolol Tartrate 25 Mg Tablet) 75 mg PO TID [facility]; Protocol Last Admin: 08/12/22 20:19 Dose: 75 mg Documented By: MANUEL Pt Own (Pantoprazole [Protonix] 40 Mg Tablet,Delayed Release (Dr/Ec)) 40 mg PO DAILY [facility] Last Admin: 08/12/22 07:39 Dose: 40 mg Documented By: MOI Ondansetron HCl (Ondansetron Hcl 4 Mg/2 Ml Vial) 4 mg IVPUSH Q8H PRN PRN Reason: Nausea and Vomiting Last Admin: 08/13/22 00:23 Dose: 4 mg Documented By: MANUEL Oxycodone HCl (Oxycodone Hcl Immed Release 5 Mg Tablet) 10 mg PO Q4H PRN PRN Reason: Pain, Severe (Pain Scale 7-10) Last Admin: 08/09/22 08:03 Dose: 10 mg Documented By: WILL Pharmacy Consult (Consult Rx Perform Med Rec) 1 each MISCELLANE ONCE PRN PRN Reason: Consult order Scopolamine (Scopolamine 1.5 Mg Patch.Td.3) 1.5 mg EAR-BEHIND Q72H [facility] Last Admin: 08/12/22 09:47 Dose: 1.5 mg Documented By: MOI Sodium Chloride (0.9 % Sodium Chloride Flush 3 Ml Syringe) 3 ml IVFLUSH QSHIFT [facility] Last Admin: 08/13/22 00:12 Dose: Not Given Documented By: MANUEL Non-Admin Reason: IV Running Sumatriptan Succinate (Sumatriptan Succinate 50 Mg Tablet) 50 mg PO DAILY PRN PRN Reason: Headache Last Admin: 08/08/22 10:21 Dose: 50 mg Documented By: EDYTA Labs CBC & Chem 7: 08/09/22 09:06 08/11/22 05:18 Procedures Date of Service Date of Service: 08/13/22 Progress Note: A&P Assessment and plan (1) Intra-abdominal abscess: Status: Acute Assessment and Plan: IR drainage performed Sunday. Both drains producing purulent material. Continue Flagyl and Zosyn as per ID Continue scopolamine patch for nausea stoma functioning on pain meds PT/OT Time Spent With Patient Time: Total time spent is greater than 50% in coordination of care (as documented) at patient's floor/unit and/or counseling patient: Quality Stroke Does the patient have a stroke diagnosis?: No VTE Prior VTE?: No VTE Risk Level:: Medical - moderate - high VTE Device Contraindication: N/A - Device Ordered VTE Drug Contraindication: N/A - Med Ordered
[2022-08-13] MEDS: metroNIDAZOLE/NS 500 MG/100 ML PIGGYBACK 100 MG IV ×3 (08:41→23:45)
[2022-08-13] MEDS: Metoprolol Tartrate 25 MG TABLET 75 MG PO ×3 (08:42→21:22)
[2022-08-13 15:12] VITALS: BP 146/77; PULSE 85; RESP 18; TEMP 37.3; O2SAT 95
[2022-08-13 19:20] VITALS: BP 164/77; PULSE 83; RESP 18; TEMP 37; O2SAT 96
[2022-08-14] MEDS: HYDROmorphone HCl 0.5 MG/0.5 ML SYRINGE IVPUSH ×6 (01:50→23:43)
[2022-08-14] MEDS: ondansetron HCL 4 MG/2 ML VIAL IVPUSH ×2 (01:50→15:02)
[2022-08-14] MEDS: Piperacillin Sodium/Tazobactam 3.375 GM in 0.9 % Sodium Chloride 50 ML IV ×4 (02:56→20:53)
[2022-08-14 04:00] VITALS: BP 158/74; PULSE 87; RESP 16; TEMP 36.4; O2SAT 95
[2022-08-14 08:00] VITALS: BP 151/69; PULSE 84; RESP 18; TEMP 37.1; O2SAT 95
--- NOTE | 2022-08-14 08:10 | PM.PNGS ---
Subjective Subjective Date of Service: 08/14/22 <Tiffanie Villeda PA-C - Last Filed: 08/14/22 08:14> 08/14/22 <Deandre Hagan MD - Last Filed: 08/14/22 16:53> Interval history: Nausea and dry heaving persist. Vomited after lunch but was able to tolerate dinner last night. OOB has been minimal. <Tiffanie Villeda PA-C - Last Filed: 08/14/22 08:14> Physical Exam Vital Signs: Vital Signs: Last Vital Signs Temp 98.7 F 08/14/22 08:00 Pulse 84 08/14/22 08:00 Resp 18 08/14/22 08:00 BP 151/69 H 08/14/22 08:00 Pulse Ox 95 08/14/22 08:00 O2 Del Method 08/14/22 08:00 O2 Flow Rate 1.0 08/12/22 19:30 BMI result Body Mass Index 27.7 <Tiffanie Villeda PA-C - Last Filed: 08/14/22 08:14> Const: General: comfortable, no acute distress and alert <Tiffanie Villeda PA-C - Last Filed: 08/14/22 08:14> Orientation/consciousness: patient oriented x3 <Tiffanie Villeda PA-C - Last Filed: 08/14/22 08:14> Resp: Effort & Inspection: normal respiratory effort <Tiffanie Villeda PA-C - Last Filed: 08/14/22 08:14> GI: Other: drains with purulent output <Tiffanie Villeda PA-C - Last Filed: 08/14/22 08:14> Inspection: No distended and Yes incision (drainage from incision, no erythema) <Tiffanie Villeda PA-C - Last Filed: 08/14/22 08:14> Palpation (GI): Soft to palpation <NAVDEEP Soto Last Filed: 08/14/22 08:14> Percussion: Yes normal to percussion <NAVDEEP Soto Last Filed: 08/14/22 08:14> Skin: General skin exam: no rashes or lesions noted <Tiffanie Villeda PA-C - Last Filed: 08/14/22 08:14> Neuro: General: patient oriented x3 <Tiffanie Villeda PA-C - Last Filed: 08/14/22 08:14> Objective Data Active Medications Calcium Carbonate (Calcium Carbonate 750 Mg Tab.Chew) 750 mg PO Q4H PRN PRN Reason: Heartburn Last Admin: 08/10/22 19:20 Dose: 750 mg Documented By: SHANTI Heparin Sodium (Porcine) (Heparin Sodium,Porcine 5,000 Unit/Ml Vial) 5,000 unit SUBCUT Q8H [facility] Last Admin: 08/13/22 23:44 Dose: 5,000 unit Documented By: SHANTI Hydromorphone HCl (Hydromorphone Hcl 0.5 Mg/0.5 Ml Syringe) 0.5 mg IVPUSH Q4H PRN; Protocol PRN Reason: Pain, Severe (Pain Scale 7-10) Last Admin: 08/14/22 05:46 Dose: 0.5 mg Documented By: SHANTI Piperacillin Sod/Tazobactam (Sod 3.375 gm/ Sodium Chloride) 50 mls @ 100 mls/hr IV Q6H [facility] Last Infusion: 08/14/22 03:34 Dose: 0 mls/hr Documented By: SHANTI Metronidazole (Flagyl) 500 mg in 100 mls @ 100 mls/hr IV Q8H [facility] Last Infusion: 08/14/22 01:23 Dose: 0 mls/hr Documented By: SHANTI Potassium Chloride/Sodium Chloride (Kcl 20 Meq In 0.9 % Sodium Chl) 20 meq in 1,000 mls @ 80 mls/hr IVCONT .[id number] [facility] Last Admin: 08/14/22 05:50 Dose: Not Given Documented By: SHANTI Non-Admin Reason: IV Running Promethazine HCl 12.5 mg/ (Sodium Chloride) 50.5 mls @ 202 mls/hr IV Q6H PRN PRN Reason: nausea/vomiting Metoprolol Tartrate (Metoprolol Tartrate 25 Mg Tablet) 75 mg PO TID [facility]; Protocol Last Admin: 08/13/22 21:22 Dose: 75 mg Documented By: SHANTI Pt Own (Pantoprazole [Protonix] 40 Mg Tablet,Delayed Release (Dr/Ec)) 40 mg PO DAILY [facility] Last Admin: 08/13/22 08:42 Dose: 40 mg Documented By: MOI Ondansetron HCl (Ondansetron Hcl 4 Mg/2 Ml Vial) 4 mg IVPUSH Q8H PRN PRN Reason: Nausea and Vomiting Last Admin: 08/14/22 01:50 Dose: 4 mg Documented By: SHANTI Pharmacy Consult (Consult Rx Perform Med Rec) 1 each MISCELLANE ONCE PRN PRN Reason: Consult order Scopolamine (Scopolamine 1.5 Mg Patch.Td.3) 1.5 mg EAR-BEHIND Q72H [facility] Last Admin: 08/12/22 09:47 Dose: 1.5 mg Documented By: MOI Sodium Chloride (0.9 % Sodium Chloride Flush 3 Ml Syringe) 3 ml IVFLUSH QSHIFT [facility] Last Admin: 08/14/22 07:26 Dose: Not Given Documented By: MIRNA Non-Admin Reason: IV Running Sumatriptan Succinate (Sumatriptan Succinate 50 Mg Tablet) 50 mg PO DAILY PRN PRN Reason: Headache Last Admin: 08/08/22 10:21 Dose: 50 mg Documented By: EDYTA <Tiffanie Villeda PA-C - Last Filed: 08/14/22 08:14> Labs CBC & Chem 7: : 08/09/22 09:06 08/11/22 05:18 <Tiffanie Villeda PA-C - Last Filed: 08/14/22 08:14> Procedures Date of Service Date of Service: 08/14/22 <NAVDEEP Soto Last Filed: 08/14/22 08:14> Progress Note: A&P Assessment and plan (1) Intra-abdominal abscess: Status: Acute <NAVDEEP Soto Last Filed: 08/14/22 08:14> (2) S/P colectomy: Status: Acute <NAVDEEP Soto Last Filed: 08/14/22 08:14> Assessment and Plan: tolerating diet today with good oral intake abd soft stoma functioning well NOHEMI drains x 2 encouraged to increase level of activity looks well seen and examined - agree with RUSSELL Villeda <Deandre Hagan MD - Last Filed: 08/14/22 16:53> Assessment and Plan: S/p IR drainage x2, second drain placed Sunday. Both drains producing purulent material. Continue Flagyl and Zosyn as per ID Continue scopolamine patch for nausea, will add phenergan. stoma functioning Strongly encouraged participation with PT/OT to increase strength, help reduce nausea. Will add ensure BID for caloric intake. <Tiffanie Villeda PA-C - Last Filed: 08/14/22 08:14> Time Spent With Patient Time: Total time spent is greater than 50% in coordination of care (as documented) at patient's floor/unit and/or counseling patient: <Tiffanie Villeda PA-C - Last Filed: 08/14/22 08:14> Quality Stroke Does the patient have a stroke diagnosis?: No <Tiffanie Villeda PA-C - Last Filed: 08/14/22 08:14> VTE Prior VTE?: No <Tiffanie Villeda PA-C - Last Filed: 08/14/22 08:14> VTE Risk Level:: Medical - moderate - high <NAVDEEP Soto Last Filed: 08/14/22 08:14> VTE Device Contraindication: N/A - Device Ordered <Tiffanie Villeda PA-C - Last Filed: 08/14/22 08:14> VTE Drug Contraindication: N/A - Med Ordered <Tiffanie Villeda PA-C - Last Filed: 08/14/22 08:14>
[2022-08-14] MEDS: Heparin Sodium,Porcine 5,000 UNIT/ML VIAL 5000 UNIT SUBCUT ×2 (08:21→23:43)
[2022-08-14] MEDS: metroNIDAZOLE/NS 500 MG/100 ML PIGGYBACK 100 MG IV ×3 (08:21→23:42)
[2022-08-14] MEDS: Metoprolol Tartrate 25 MG TABLET 75 MG PO ×3 (08:21→20:54)
[2022-08-14] MEDS: KCl 20 mEq in 0.9 % Sodium ChL 20 MEQ/1,000 ML IV.SOLN 80 MEQ IVCONT (08:22)
--- NOTE | 2022-08-14 10:21 | MHC.CLN ---
F/U DIET=REGULAR. NEW ORDER FOR ENSURE BID PER PROVIDER. PROVIDES ADDITIONAL 700 KCALS, 40 G PROTEIN. PATIENT WITH IR DRAINAGE X 2. NAUSEA AND VOMITING NOTED. MAY HAVE ENSURE PUDDING DESIRED. INTAKE VARIABLE. STAGE II WOUND TO COCCYX. SUPPLEMENT TO PROVIDE ADDITIONAL NUTRITION TO PROMOTE WOUND HEALING. FOLLOW FOR INTAKE, WEIGHT AND SKIN.
--- NOTE | 2022-08-14 11:34 | PC.NURSE ---
Spoke to pharmacist, KCL 20mEq in 0.9 Na Chl is compatible with Promethezine HCl 12.5, able to hang as piggyback.
[2022-08-14 16:02] VITALS: BP 157/70; PULSE 88; RESP 18; TEMP 36.4; O2SAT 96
[2022-08-14 19:46] VITALS: BP 149/72; PULSE 89; RESP 18; TEMP 37.1; O2SAT 96
[2022-08-14] MEDS: KCl 20 mEq in 0.9 % Sodium ChL 20 MEQ/1,000 ML IV.SOLN 60 MEQ IVCONT (23:49)
[2022-08-15] MEDS: SUMAtriptan succinate 50 MG TABLET PO (01:29)
[2022-08-15] MEDS: Piperacillin Sodium/Tazobactam 3.375 GM in 0.9 % Sodium Chloride 50 ML IV ×3 (03:22→14:47)
[2022-08-15] MEDS: HYDROmorphone HCl 0.5 MG/0.5 ML SYRINGE IVPUSH ×5 (03:53→20:47)
[2022-08-15 04:00] VITALS: BP 140/70; PULSE 84; RESP 17; TEMP 36.6; O2SAT 96
[2022-08-15 06:25] LABS: Hematocrit 31.2 % (37.0-47.0); Hemoglobin 10.1 g/dl (12.0-16.0); Mean Corpuscular HGB Conc 32.4 g/dl (31.0-35.0); Mean Corpuscular Hemoglobin 28.1 pg (27.0-33.0); Mean Corpuscular Volume 86.9 fL (80.0-98.0); Mean Platelet Volume 9.5 fL (9.4-12.3); Platelet Count 264 X10*3/uL (160-400); Red Blood Count 3.59 X10*6/uL (4.20-5.50); Red Cell Distribution Width 14.1 % (11.0-16.0); White Blood Count 7.1 X10*3/uL (4.8-10.8)
[2022-08-15 06:40] LABS: Anion Gap 13 (12-20); Blood Urea Nitrogen 6 mg/dL (9-16); Calcium 8.4 mg/dL (8.4-10.2); Carbon Dioxide 28 mmol/L (22-29); Chloride 105 mmol/L (96-108); Creatinine Clr Calc Pharmacy 107.3; Estimated Glomerular Filt Rate > 60; Glucose Random 88 mg/dL (60-115); Potassium 3.2 mmol/L (3.3-5.1); Sodium 143 mmol/L (135-145)
[2022-08-15 07:41] VITALS: BP 171/81; PULSE 87; RESP 18; TEMP 36.2; O2SAT 96
[2022-08-15] MEDS: ondansetron HCL 4 MG/2 ML VIAL IVPUSH ×2 (08:23→16:48)
[2022-08-15] MEDS: Heparin Sodium,Porcine 5,000 UNIT/ML VIAL 5000 UNIT SUBCUT ×2 (08:23→14:37)
[2022-08-15] MEDS: metroNIDAZOLE/NS 500 MG/100 ML PIGGYBACK 100 MG IV ×2 (08:24→16:24)
[2022-08-15] MEDS: Metoprolol Tartrate 25 MG TABLET 75 MG PO ×3 (08:24→20:32)
[2022-08-15] MEDS: Scopolamine 1.5 MG PATCH.TD.3 EAR-BEHIND (09:52)
--- NOTE | 2022-08-15 11:59 | P.CDIC_ITS ---
CDI Concurrent Query Documentation Clarification: PHYSICIAN'S DOCUMENTATION REQUEST Date of Query: 08/15/22 1157 Patient Name: Ju Hankins Admit Date: 08/05/22 Dear Doctor, A review of the medical record indicates additional documentation may be needed. Please review below and update the documentation accordingly. Clinical Indicators: Is there a diagnosis that correlates with the findings below: Risk Factors/Clinical Indicators/Treatments Per nutrition consult on 08/14/22: DIET=REGULAR. NEW ORDER FOR ENSURE BID PER PROVIDER. PROVIDES ADDITIONAL 700 KCALS, 40 G PROTEIN. PATIENT WITH IR DRAINAGE X 2. NAUSEA AND VOMITING NOTED. MAY HAVE ENSURE PUDDING DESIRED. INTAKE VARIABLE. Per provider progress notes: Patient mainly complains of nausea this morning Other indicators: Patient treated for moderate protein-calorie malnutrition during most recent previous admission If possible, please provide an associated diagnosis related to the abnormal BMI, such as: Malnutrition: * Mild * Moderate * Severe BMI: * Underweight * Weight loss * Cachexia * Anorexia Or: * BMI is not significant * Other (please specify) * Unable to determine Use of terms such as suspected, likely, concern for, or probable (associated with a specific diagnosis that is being evaluated, monitored, or treated as if it exists) are acceptable and can be coded in the inpatient setting, when documented at the time of discharge. Thank you, Brynn An MS, RN, CCRN Extension: [phone] Please use your independent medical judgment in providing your response. THIS QUERY IS PART OF THE PERMANENT MEDICAL RECORD Provider Response: Other (Has mild malnutrition, albumin 3.1) Other Diagnosis: Mild malnutrition, abdomen 3.1
--- NOTE | 2022-08-15 12:20 | PM.PNGS ---
Subjective Subjective Date of Service: 08/15/22 Interval history: occasional nausea but able to tolerate diet better no events overnight Physical Exam Vital Signs: Vital Signs: Last Vital Signs Temp 97.1 F 08/15/22 07:41 Pulse 87 08/15/22 07:41 Resp 18 08/15/22 07:41 BP 171/81 H 08/15/22 07:41 Pulse Ox 96 08/15/22 07:41 O2 Del Method 08/15/22 07:41 O2 Flow Rate 1.0 08/12/22 19:30 BMI result Body Mass Index 27.7 Const: General: comfortable and no acute distress Resp: Other: mild shortness of breath Cardio: Rate: regular rate GI: Other: to drains in place very scanty purulent output, midline incision with some drainage from lower retention suture Palpation (GI): Soft to palpation and not firm Objective Data Active Medications Calcium Carbonate (Calcium Carbonate 750 Mg Tab.Chew) 750 mg PO Q4H PRN PRN Reason: Heartburn Last Admin: 08/10/22 19:20 Dose: 750 mg Documented By: SHANTI Heparin Sodium (Porcine) (Heparin Sodium,Porcine 5,000 Unit/Ml Vial) 5,000 unit SUBCUT Q8H [facility] Last Admin: 08/15/22 08:23 Dose: 5,000 unit Documented By: MIRNA Hydromorphone HCl (Hydromorphone Hcl 0.5 Mg/0.5 Ml Syringe) 0.5 mg IVPUSH Q4H PRN; Protocol PRN Reason: Pain, Severe (Pain Scale 7-10) Last Admin: 08/15/22 08:24 Dose: 0.5 mg Documented By: MIRNA Piperacillin Sod/Tazobactam (Sod 3.375 gm/ Sodium Chloride) 50 mls @ 100 mls/hr IV Q6H [facility] Last Infusion: 08/15/22 10:21 Dose: 0 mls/hr Documented By: MIRNA Metronidazole (Flagyl) 500 mg in 100 mls @ 100 mls/hr IV Q8H [facility] Last Infusion: 08/15/22 09:49 Dose: 0 mls/hr Documented By: MIRNA Promethazine HCl 12.5 mg/ (Sodium Chloride) 50.5 mls @ 202 mls/hr IV Q6H PRN PRN Reason: nausea/vomiting Last Infusion: 08/15/22 01:59 Dose: 0 mls/hr Documented By: SHANTI Potassium Chloride/Sodium Chloride (Kcl 20 Meq In 0.9 % Sodium Chl) 20 meq in 1,000 mls @ 60 mls/hr IVCONT .[id number] [facility] Last Admin: 08/14/22 23:49 Dose: 60 mls/hr Documented By: SHANTI Metoprolol Tartrate (Metoprolol Tartrate 25 Mg Tablet) 75 mg PO TID [facility]; Protocol Last Admin: 08/15/22 08:24 Dose: 75 mg Documented By: MIRNA Pt Own (Pantoprazole [Protonix] 40 Mg Tablet,Delayed Release (Dr/Ec)) 40 mg PO DAILY [facility] Last Admin: 08/15/22 08:24 Dose: 40 mg Documented By: MIRNA Ondansetron HCl (Ondansetron Hcl 4 Mg/2 Ml Vial) 4 mg IVPUSH Q8H PRN PRN Reason: Nausea and Vomiting Last Admin: 08/15/22 08:23 Dose: 4 mg Documented By: MIRNA Pharmacy Consult (Consult Rx Perform Med Rec) 1 each MISCELLANE ONCE PRN PRN Reason: Consult order Scopolamine (Scopolamine 1.5 Mg Patch.Td.3) 1.5 mg EAR-BEHIND Q72H [facility] Last Admin: 08/15/22 09:52 Dose: 1.5 mg Documented By: MIRNA Sodium Chloride (0.9 % Sodium Chloride Flush 3 Ml Syringe) 3 ml IVFLUSH QSHIFT [facility] Last Admin: 08/15/22 06:59 Dose: Not Given Documented By: MIRNA Non-Admin Reason: IV Running Sumatriptan Succinate (Sumatriptan Succinate 50 Mg Tablet) 50 mg PO DAILY PRN PRN Reason: Headache Last Admin: 08/15/22 01:29 Dose: 50 mg Documented By: SHANTI Labs CBC & Chem 7: 08/15/22 05:19 08/15/22 05:19 Labs: Laboratory Results - last 24 hr 08/15/22 08/15/22 05:19 05:19 MCV 86.9 MCH 28.1 MCHC 32.4 RDW 14.1 Plt Count 264 MPV 9.5 Absolute Nucleated RBC 0.000 Nucleated RBC % (auto) 0.0 Anion Gap 13 Estim Creat Clear Calc 107.3 Estimated GFR > 60 Random Glucose 88 Calcium 8.4 Procedures Date of Service Date of Service: 08/15/22 Progress Note: A&P Assessment and plan (1) Intra-abdominal abscess: Status: Acute Assessment and Plan: two drains in place push oral intake out of bed - PT/OT stoma functioning well abdomen soft improving slowly remains deconditioned supplement potassium at bedside - understands plan Time Spent With Patient Time: Total time spent is greater than 50% in coordination of care (as documented) at patient's floor/unit and/or counseling patient: Quality Stroke Does the patient have a stroke diagnosis?: No VTE Prior VTE?: No VTE Risk Level:: Medical - moderate - high VTE Device Contraindication: N/A - Device Ordered VTE Drug Contraindication: N/A - Med Ordered
[2022-08-15] MEDS: Potassium Chloride ER 20 MEQ TAB.ER.PRT 40 MEQ PO ×2 (12:59→20:32)
[2022-08-15 15:38] VITALS: BP 136/71; PULSE 91; RESP 18; TEMP 36.7; O2SAT 97
[2022-08-15] MEDS: KCl 20 mEq in 0.9 % Sodium ChL 20 MEQ/1,000 ML IV.SOLN 60 MEQ IVCONT (16:24)
[2022-08-15 19:59] VITALS: BP 163/71; PULSE 88; RESP 18; TEMP 36.4; O2SAT 98
[2022-08-15 20:46] VITALS: RESP 16
[2022-08-16] MEDS: metroNIDAZOLE/NS 500 MG/100 ML PIGGYBACK 100 MG IV ×3 (00:14→15:34)
[2022-08-16] MEDS: 0.9 % Sodium Chloride Flush 3 ML SYRINGE IVFLUSH ×3 (00:14→20:58)
[2022-08-16] MEDS: Heparin Sodium,Porcine 5,000 UNIT/ML VIAL 5000 UNIT SUBCUT ×3 (00:14→14:50)
[2022-08-16] MEDS: HYDROmorphone HCl 0.5 MG/0.5 ML SYRINGE IVPUSH ×5 (00:51→20:57)
[2022-08-16] MEDS: ondansetron HCL 4 MG/2 ML VIAL IVPUSH ×3 (01:11→20:58)
[2022-08-16 03:54] VITALS: BP 171/80; PULSE 86; RESP 18; TEMP 36.9; O2SAT 96
[2022-08-16 07:46] VITALS: BP 183/77; PULSE 95; RESP 18; TEMP 36.6; O2SAT 96
[2022-08-16] MEDS: Metoprolol Tartrate 25 MG TABLET 75 MG PO ×3 (07:57→21:14)
[2022-08-16 08:26] VITALS: BP 161/69; PULSE 93; RESP 16; TEMP 36.6; O2SAT 97
--- NOTE | 2022-08-16 09:43 | PM.PNGS ---
Subjective Subjective Date of Service: 08/17/22 Interval history: Has had some nausea Tolerated food yesterday States that she did PT yesterday and was able to get out of bed to chair/recliner Does not feel she will able to do PT today Physical Exam Vital Signs: Vital Signs: Last Vital Signs Temp 97.8 F 08/16/22 08:26 Pulse 93 08/16/22 08:26 Resp 16 08/16/22 08:26 BP 161/69 H 08/16/22 08:26 Pulse Ox 97 08/16/22 08:26 O2 Del Method 08/16/22 08:26 O2 Flow Rate 1.0 08/12/22 19:30 BMI result Body Mass Index 27.7 Const: Other: Mild shortness of breath as per baseline General: no acute distress Resp: Other: Mild shortness of breath as per baseline Cardio: Rate: regular rate GI: Other: Soft, NOHEMI drains in place, very scanty output, midline incision with some drainage from open wound underneath retention sutures Objective Data Active Medications Calcium Carbonate (Calcium Carbonate 750 Mg Tab.Chew) 750 mg PO Q4H PRN PRN Reason: Heartburn Last Admin: 08/10/22 19:20 Dose: 750 mg Documented By: SHANTI Heparin Sodium (Porcine) (Heparin Sodium,Porcine 5,000 Unit/Ml Vial) 5,000 unit SUBCUT Q8H [facility] Last Admin: 08/16/22 07:57 Dose: 5,000 unit Documented By: JOSE DE JESUS Hydromorphone HCl (Hydromorphone Hcl 0.5 Mg/0.5 Ml Syringe) 0.5 mg IVPUSH Q4H PRN; Protocol PRN Reason: Pain, Severe (Pain Scale 7-10) Last Admin: 08/16/22 04:59 Dose: 0.5 mg Documented By: CHELLY Metronidazole (Flagyl) 500 mg in 100 mls @ 100 mls/hr IV Q8H [facility] Last Infusion: 08/16/22 09:05 Dose: 0 mls/hr Documented By: JOSE DE JESUS Promethazine HCl 12.5 mg/ (Sodium Chloride) 50.5 mls @ 202 mls/hr IV Q6H PRN PRN Reason: nausea/vomiting Last Infusion: 08/16/22 08:32 Dose: 0 mls/hr Documented By: JOSE DE JESUS Potassium Chloride/Sodium Chloride (Kcl 20 Meq In 0.9 % Sodium Chl) 20 meq in 1,000 mls @ 60 mls/hr IVCONT .[id number] [facility] Last Infusion: 08/16/22 01:34 Dose: 60 mls/hr Documented By: CHELLY Metoprolol Tartrate (Metoprolol Tartrate 25 Mg Tablet) 75 mg PO TID [facility]; Protocol Last Admin: 08/16/22 07:57 Dose: 75 mg Documented By: JOSE DE JESUS Pt Own (Pantoprazole [Protonix] 40 Mg Tablet,Delayed Release (Dr/Ec)) 40 mg PO DAILY [facility] Last Admin: 08/16/22 07:57 Dose: 40 mg Documented By: JOSE DE JESUS Ondansetron HCl (Ondansetron Hcl 4 Mg/2 Ml Vial) 4 mg IVPUSH Q8H PRN PRN Reason: Nausea and Vomiting Last Admin: 08/16/22 01:11 Dose: 4 mg Documented By: CHELLY Pharmacy Consult (Consult Rx Perform Med Rec) 1 each MISCELLANE ONCE PRN PRN Reason: Consult order Scopolamine (Scopolamine 1.5 Mg Patch.Td.3) 1.5 mg EAR-BEHIND Q72H [facility] Last Admin: 08/15/22 09:52 Dose: 1.5 mg Documented By: MIRNA Sodium Chloride (0.9 % Sodium Chloride Flush 3 Ml Syringe) 3 ml IVFLUSH QSHIFT [facility] Last Admin: 08/16/22 07:58 Dose: 3 ml Documented By: JOSE DE JESUS Sumatriptan Succinate (Sumatriptan Succinate 50 Mg Tablet) 50 mg PO DAILY PRN PRN Reason: Headache Last Admin: 08/15/22 01:29 Dose: 50 mg Documented By: SHANTI Labs CBC & Chem 7: 08/15/22 05:19 08/17/22 05:23 Procedures Date of Service Date of Service: 08/17/22 Progress Note: A&P Assessment and plan (1) Intra-abdominal abscess: Status: Acute Assessment and Plan: Status post CT drain Still has periodic nausea On Phenergan and Zofran Abdomen soft Stoma with good function Potassium was low- replaced yesterday Blood pressure periodically high Will ask hospitalist to follow Time Spent With Patient Time: Total time spent is greater than 50% in coordination of care (as documented) at patient's floor/unit and/or counseling patient: Quality Stroke Does the patient have a stroke diagnosis?: No VTE Prior VTE?: No VTE Risk Level:: Medical - moderate - high VTE Device Contraindication: N/A - Device Ordered VTE Drug Contraindication: N/A - Med Ordered
--- NOTE | 2022-08-16 10:15 | MHC.CLN ---
F/U DIET=REGULAR. NEW ORDER FOR ENSURE CLEAR BID PER PROVIDER. PROVIDES ADDITIONAL 480 KCALS, 16 G PROTEIN. MAY HAVE ENSURE PUDDING DESIRED. PATIENT WITH IR DRAINAGE X 2. APPEARS TO BE TOLERATING DIET. INTAKE X 2 DAYS 50-100%. STAGE II WOUND TO COCCYX. SUPPLEMENT TO PROVIDE ADDITIONAL NUTRITION TO PROMOTE WOUND HEALING. FOLLOW FOR INTAKE, WEIGHT AND SKIN.
[2022-08-16 12:15] VITALS: BP 169/75; PULSE 87; RESP 16; TEMP 36.6; O2SAT 98
[2022-08-16] MEDS: KCl 20 mEq in 0.9 % Sodium ChL 20 MEQ/1,000 ML IV.SOLN 60 MEQ IVCONT (12:34)
--- NOTE | 2022-08-16 14:43 | P.CONHOSP_ITS ---
History of Present Illness Data of Consult Service Date: 08/16/22 Requesting physician: Deandre Hagan Primary Care Provider: Deandre Younger MD [facility] Reason for consult: medical conditions 62yo F with Crohn's disease, recent prolonged hospitalization for intestinal perforation with multiple abscesses then toxic megacolon due to C. difficile colitis requiring subtotal colectomy. Discharged to rehab 08/01/22 but re- admitted 08/05/22 with leukocytosis and drainage from her incision, found to have intra-abdominal abscess, s/p drainage via CT guidance 08/07 and 08/11. She is doing well now, eating, with abdominal pain controlled. She has periodic migraines that respond to sumatriptan. BP persistently 160s-180s/70s-80s on metoprolol tartrate 75 mg tid. No fever, dyspnea, cough, chest pain, nausea, vomiting, or headache. Review of Systems Review of Systems: Yes all other systems are reviewed and are negative [facility] Medical History Arthritis Back pain Carpal tunnel syndrome COVID-19 vaccine series completed Crohn's disease Environmental allergies Fever of unknown origin Fibromyalgia GERD (gastroesophageal reflux disease) Herniated cervical disc Hx of migraines Intra-abdominal abscess Intra-abdominal abscess Iron deficiency anemia Leukocytosis Perforated viscus PONV (postoperative nausea and vomiting) Shock Thoracic disc herniation Vitamin D deficiency Surgical History History of esophagogastroduodenoscopy (EGD) History of surgery History of tonsillectomy History of tubal ligation Hx of cholecystectomy Hx of colonoscopy Hx of fusion of cervical spine Hx of shoulder surgery Status post colostomy Social History Household Members: None Housing: House Are you a primary rn intensive care unit to a significant other at home: No Do you presently have visiting nurse or other home services: No Unable to assess alcohol history related to: Unknown Alcohol intake: never Patient Tobacco Use Status: Former Tobacco user Quit Date: 1999 Tobacco use type: Cigarette e-Cigarette/Vaping Use: Never Used Use of substances other than those prescribed or required for medical reasons: No Currently Displaying Signs/Symptoms of Drug Intoxication Withdrawal: No Do you feel safe in your current relationship?: Yes Is there a partner from a previous relationship who is making you feel unsafe now?: No Are you made to feel afraid or neglected: No Advance Directives: Yes Advance Directives Information Provided: Yes Advance Directives on File: No Advance Directives Date on File: 06/23/20 Do you have thoughts of harming others: None Do you have a plan to hurt others: No Plan Recently lost weight without trying: No Patient : No Poor oral hygiene: No service: No Current occupational status: employed Meds Allergies Allergy/AdvReac Type Severity Reaction Status Date / Time omeprazole [OMEPRAZOLE] Allergy Severe N/V Verified 08/07/22 10:48 tramadol [From Ultram] Allergy Intermediate ITCHING Verified 08/07/22 10:48 ibuprofen [From Motrin] Allergy Unknown Verified 08/07/22 10:48 Active Medications: Current Medications Calcium Carbonate (Calcium Carbonate 750 Mg Tab.Chew) 750 mg PO Q4H PRN PRN Reason: Heartburn Last Admin: 08/10/22 19:20 Dose: 750 mg Heparin Sodium (Porcine) (Heparin Sodium,Porcine 5,000 Unit/Ml Vial) 5,000 unit SUBCUT Q8H [facility] Last Admin: 08/16/22 07:57 Dose: 5,000 unit Hydromorphone HCl (Hydromorphone Hcl 0.5 Mg/0.5 Ml Syringe) 0.5 mg IVPUSH Q4H PRN; Protocol PRN Reason: Pain, Severe (Pain Scale 7-10) Last Admin: 08/16/22 10:51 Dose: 0.5 mg Metronidazole (Flagyl) 500 mg in 100 mls @ 100 mls/hr IV Q8H [facility] Last Infusion: 08/16/22 09:05 Dose: Infused Promethazine HCl 12.5 mg/ (Sodium Chloride) 50.5 mls @ 202 mls/hr IV Q6H PRN PRN Reason: nausea/vomiting Last Infusion: 08/16/22 08:32 Dose: Infused Potassium Chloride/Sodium Chloride (Kcl 20 Meq In 0.9 % Sodium Chl) 20 meq in 1,000 mls @ 60 mls/hr IVCONT .[id number] [facility] Last Admin: 08/16/22 12:34 Dose: 60 mls/hr Metoprolol Tartrate (Metoprolol Tartrate 25 Mg Tablet) 75 mg PO TID [facility]; Protocol Last Admin: 08/16/22 07:57 Dose: 75 mg Pt Own (Pantoprazole [Protonix] 40 Mg Tablet,Delayed Release (Dr/Ec)) 40 mg PO DAILY [facility] Last Admin: 08/16/22 07:57 Dose: 40 mg Ondansetron HCl (Ondansetron Hcl 4 Mg/2 Ml Vial) 4 mg IVPUSH Q8H PRN PRN Reason: Nausea and Vomiting Last Admin: 08/16/22 10:45 Dose: 4 mg Pharmacy Consult (Consult Rx Perform Med Rec) 1 each MISCELLANE ONCE PRN PRN Reason: Consult order Scopolamine (Scopolamine 1.5 Mg Patch.Td.3) 1.5 mg EAR-BEHIND Q72H [facility] Last Admin: 08/15/22 09:52 Dose: 1.5 mg Sodium Chloride (0.9 % Sodium Chloride Flush 3 Ml Syringe) 3 ml IVFLUSH QSHIFT [facility] Last Admin: 08/16/22 07:58 Dose: 3 ml Sumatriptan Succinate (Sumatriptan Succinate 50 Mg Tablet) 50 mg PO DAILY PRN PRN Reason: Headache Last Admin: 08/15/22 01:29 Dose: 50 mg Home Medications Medication Instructions Recorded Confirmed Last Taken Type mesalamine 0.375 gram 1.5 g PO QAM 10/21/20 08/05/22 05/17/22 History capsule,extended release 24 hr (Apriso) methocarbamol 750 mg tablet 750 mg PO TID 10/21/20 08/05/22 05/17/22 History pantoprazole 40 mg tablet,delayed 40 mg PO BEDTIME 10/21/20 08/05/22 05/17/22 History release (Protonix) loratadine 10 mg tablet (Claritin) 10 mg PO DAILY 06/24/21 08/05/22 05/17/22 History duloxetine 60 mg capsule,delayed 1 cap PO BEDTIME 05/18/22 08/05/22 05/17/22 History release ondansetron 8 mg disintegrating 1 tab PO DAILY PRN Nausea 05/18/22 08/05/22 Unknown History tablet rizatriptan 10 mg tablet 1 tab PO DAILY PRN Migraine 05/18/22 08/05/22 Unknown History Headache fremanezumab-vfrm 225 mg/1.5 mL 225 mg subcut Q30D 08/05/22 08/05/22 Unknown History subcutaneous syringe (Ajovy Syringe) metoprolol tartrate 25 mg tablet 75 mg PO TID 08/05/22 08/05/22 Unknown History oxycodone 5 mg tablet 5 mg PO Q6H PRN Pain, Moderate 08/05/22 08/05/22 Unknown History (Pain Scale 4-6 Physical Exam Vital Signs and Narrative: Vital Signs: Last Vital Signs Temp 98 F 08/16/22 12:15 Pulse 87 08/16/22 12:15 Resp 16 08/16/22 12:15 BP 169/75 H 08/16/22 12:15 Pulse Ox 98 08/16/22 12:15 O2 Del Method 08/16/22 12:15 O2 Flow Rate 1.0 08/12/22 19:30 BMI result Body Mass Index 27.7 Gen: in no acute distress HEENT: sclera anicteric, moist mucus membranes Neck: supple Lungs: clear to auscultation bilaterally Heart: regular rate and rhythm, no murmurs Abd: soft, 2 abscess drains with scant liquid discharge, ostomy with pasty stool, midline incision Ext: no edema Skin: warm/well-perfused Neuro: alert and oriented x3, no focal findings Psych: appropriate affect Results Labs CBC and Chem 7: 08/15/22 05:19 08/15/22 05:19 Assessment and Plan (1) Intra-abdominal abscess: Status: Acute (2) S/P colectomy: Status: Acute Plan 62yo F with Crohn's disease, recent prolonged hospitalization for intestinal perforation with multiple abscesses then toxic megacolon due to C. difficile colitis requiring subtotal colectomy. Discharged to rehab 08/01/22 but re- admitted 08/05/22 with leukocytosis and drainage from her incision, found to have intra-abdominal abscess, s/p drainage via CT guidance 08/07 and 08/11. # intra-abdominal abscesses - on metronidazole d#6, completed pip-ruthie x10d yesterday. 2 IR-guided drains in place. # HTN - continue metoprolol, added amlodipine # hypoK - recheck level # migraines - prn sumatriptan # VTE ppx: [facility] Thank you for this consultation. We will continue to follow along with you.
--- NOTE | 2022-08-16 15:06 | MHC.CM.PN ---
EMR REVIEWED, PER SURGICAL NOTES NO D/C PLANNED FOR TODAY, ANTIC PT WILL NEED PT TO REAUTH FOR RETURN TO STR AT [facility] ONCE MEDICALLY CLEARE.D
[2022-08-16 15:28] VITALS: BP 150/72; PULSE 86; RESP 17; TEMP 37.5; O2SAT 97
[2022-08-16] MEDS: amLODIPine Besylate 5 MG TABLET PO (15:34)
[2022-08-16 20:00] VITALS: BP 168/79; PULSE 95; RESP 18; TEMP 37.1; O2SAT 97
[2022-08-17] VITALS (9 sets, daily range): BP systolic 133–171; BP diastolic 74–80; PULSE 82–103; RESP 16–18; TEMP 36.3–37.1; O2SAT 95–98
[2022-08-17] MEDS: Heparin Sodium,Porcine 5,000 UNIT/ML VIAL 5000 UNIT SUBCUT ×4 (00:02→23:32)
[2022-08-17] MEDS: metroNIDAZOLE/NS 500 MG/100 ML PIGGYBACK 100 MG IV ×4 (00:03→23:33)
[2022-08-17] MEDS: HYDROmorphone HCl 0.5 MG/0.5 ML SYRINGE IVPUSH ×5 (02:24→20:08)
[2022-08-17] MEDS: ondansetron HCL 4 MG/2 ML VIAL IVPUSH ×3 (06:05→23:33)
[2022-08-17 06:10] LABS: Anion Gap 12 (12-20); Blood Urea Nitrogen 5 mg/dL (9-16); Calcium 9.1 mg/dL (8.4-10.2); Carbon Dioxide 27 mmol/L (22-29); Chloride 105 mmol/L (96-108); Creatinine Clr Calc Pharmacy 105.2; Estimated Glomerular Filt Rate > 60; Glucose Random 97 mg/dL (60-115); Potassium 3.7 mmol/L (3.3-5.1); Sodium 140 mmol/L (135-145)
[2022-08-17 06:22] LABS: Magnesium 1.1 mg/dL (1.6-2.6)
--- NOTE | 2022-08-17 07:48 | P.PNGS_ITS ---
Subjective Subjective Date of Service: 08/22/22 Interval history: feels better today says she tolerated food yesterday states she is hungry and looking forward to eat no events reported Physical Exam Vital Signs: Vital Signs: Last Vital Signs Temp 97.3 F 08/17/22 07:36 Pulse 92 08/17/22 07:36 Resp 18 08/17/22 07:36 BP 169/80 H 08/17/22 07:36 Pulse Ox 98 08/17/22 07:36 O2 Del Method 08/17/22 07:36 O2 Flow Rate 1.0 08/12/22 19:30 BMI result Body Mass Index 27.7 Const: General: comfortable and no acute distress Resp: Effort & Inspection: normal respiratory effort Cardio: Rate: regular rate GI: Other: soft, good output, no guarding rebound, NOHEMI drains x2 very scanty output Objective Data Active Medications Amlodipine Besylate (Amlodipine Besylate 5 Mg Tablet) 5 mg PO DAILY [facility]; Protocol Last Admin: 08/16/22 15:34 Dose: 5 mg Documented By: MIRNA Calcium Carbonate (Calcium Carbonate 750 Mg Tab.Chew) 750 mg PO Q4H PRN PRN Reason: Heartburn Last Admin: 08/10/22 19:20 Dose: 750 mg Documented By: SHANTI Heparin Sodium (Porcine) (Heparin Sodium,Porcine 5,000 Unit/Ml Vial) 5,000 unit SUBCUT Q8H [facility] Last Admin: 08/17/22 06:04 Dose: 5,000 unit Documented By: ABIEL Hydromorphone HCl (Hydromorphone Hcl 0.5 Mg/0.5 Ml Syringe) 0.5 mg IVPUSH Q4H PRN; Protocol PRN Reason: Pain, Severe (Pain Scale 7-10) Last Admin: 08/17/22 06:39 Dose: 0.5 mg Documented By: ABIEL Metronidazole (Flagyl) 500 mg in 100 mls @ 100 mls/hr IV Q8H [facility] Last Infusion: 08/17/22 01:39 Dose: 0 mls/hr Documented By: ABIEL Promethazine HCl 12.5 mg/ (Sodium Chloride) 50.5 mls @ 202 mls/hr IV Q6H PRN PRN Reason: nausea/vomiting Last Infusion: 08/17/22 02:52 Dose: 0 mls/hr Documented By: ABIEL Magnesium Sulfate (Magnesium Sulfate/H2o) 2 gm in 50 mls @ 25 mls/hr IV ONCE ONE Stop: 08/17/22 08:23 Metoprolol Tartrate (Metoprolol Tartrate 25 Mg Tablet) 75 mg PO TID [facility]; Protocol Last Admin: 08/16/22 21:14 Dose: 75 mg Documented By: ABIEL Pt Own (Pantoprazole [Protonix] 40 Mg Tablet,Delayed Release (Dr/Ec)) 40 mg PO DAILY [facility] Last Admin: 08/16/22 07:57 Dose: 40 mg Documented By: JOSE DE JESUS Ondansetron HCl (Ondansetron Hcl 4 Mg/2 Ml Vial) 4 mg IVPUSH Q8H PRN PRN Reason: Nausea and Vomiting Last Admin: 08/17/22 06:05 Dose: 4 mg Documented By: ABIEL Pharmacy Consult (Consult Rx Perform Med Rec) 1 each MISCELLANE ONCE PRN PRN Reason: Consult order Scopolamine (Scopolamine 1.5 Mg Patch.Td.3) 1.5 mg EAR-BEHIND Q72H [facility] Last Admin: 08/15/22 09:52 Dose: 1.5 mg Documented By: MIRNA Sodium Chloride (0.9 % Sodium Chloride Flush 3 Ml Syringe) 3 ml IVFLUSH QSHIFT [facility] Last Admin: 08/16/22 20:58 Dose: 3 ml Documented By: ABIEL Sumatriptan Succinate (Sumatriptan Succinate 50 Mg Tablet) 50 mg PO DAILY PRN PRN Reason: Headache Last Admin: 08/15/22 01:29 Dose: 50 mg Documented By: SHANTI Labs CBC & Chem 7: 08/15/22 05:19 08/21/22 05:39 Labs: Laboratory Results - last 24 hr 08/17/22 05:23 Anion Gap 12 Estim Creat Clear Calc 105.2 Estimated GFR > 60 Random Glucose 97 Calcium 9.1 D Magnesium 1.1 L* Procedures Date of Service Date of Service: 08/17/22 Progress Note: A&P Assessment and plan (1) Intra-abdominal abscess: Status: Acute Assessment and Plan: looks well push for increased activity with PT OT encourage p.o. intake magnesium replaced by hospitalist plan to removed retention sutures seems to doing well Time Spent With Patient Time: Total time spent is greater than 50% in coordination of care (as documented) at patient's floor/unit and/or counseling patient: Quality Stroke Does the patient have a stroke diagnosis?: No VTE Prior VTE?: No VTE Risk Level:: Medical - moderate - high VTE Device Contraindication: N/A - Device Ordered VTE Drug Contraindication: N/A - Med Ordered
[2022-08-17] MEDS: Metoprolol Tartrate 25 MG TABLET 75 MG PO ×3 (08:54→20:09)
[2022-08-17] MEDS: amLODIPine Besylate 5 MG TABLET PO (08:56)
[2022-08-17] MEDS: Magnesium Oxide 400 MG TABLET PO ×2 (09:48→16:38)
[2022-08-17] MEDS: Magnesium Sulfate/H2O 2 GM/50 ML PIGGYBACK IV (10:23)
[2022-08-17] MEDS: 0.9 % Sodium Chloride Flush 3 ML SYRINGE IVFLUSH ×2 (15:12→20:09)
--- NOTE | 2022-08-17 15:33 | HO.PM.IMPN ---
Subjective Subjective Date of Service: 08/17/22 Interval History: no fever pain controlled no headache Mg low Review of Systems Review of Systems: Yes all other systems are reviewed and are negative Physical Exam Vital Signs: Vital Signs: Last Vital Signs Temp 98.2 F 08/17/22 15:29 Pulse 103 H 08/17/22 15:29 Resp 18 08/17/22 15:29 BP 171/79 H 08/17/22 15:29 Pulse Ox 96 08/17/22 15:29 O2 Del Method 08/17/22 15:29 O2 Flow Rate 1.0 08/12/22 19:30 BMI result Body Mass Index 27.7 Gen: in no acute distress HEENT: sclera anicteric, moist mucus membranes Neck: supple Lungs: clear to auscultation bilaterally Heart: regular rate and rhythm, no murmurs Abd: soft, 2 abscess drains with scant liquid discharge, ostomy with liquid brown stool, midline incision Ext: no edema Skin: warm/well-perfused Neuro: alert and oriented x3, no focal findings Psych: appropriate affect Objective Data Active Medications Amlodipine Besylate (Amlodipine Besylate 5 Mg Tablet) 5 mg PO DAILY [facility]; Protocol Last Admin: 08/17/22 08:56 Dose: 5 mg Documented By: FLO Calcium Carbonate (Calcium Carbonate 750 Mg Tab.Chew) 750 mg PO Q4H PRN PRN Reason: Heartburn Last Admin: 08/10/22 19:20 Dose: 750 mg Documented By: SHANTI Heparin Sodium (Porcine) (Heparin Sodium,Porcine 5,000 Unit/Ml Vial) 5,000 unit SUBCUT Q8H [facility] Last Admin: 08/17/22 06:04 Dose: 5,000 unit Documented By: OPALORALB Hydromorphone HCl (Hydromorphone Hcl 0.5 Mg/0.5 Ml Syringe) 0.5 mg IVPUSH Q4H PRN; Protocol PRN Reason: Pain, Severe (Pain Scale 7-10) Last Admin: 08/17/22 15:05 Dose: 0.5 mg Documented By: FLO Metronidazole (Flagyl) 500 mg in 100 mls @ 100 mls/hr IV Q8H [facility] Last Infusion: 08/17/22 10:48 Dose: 0 mls/hr Documented By: JOSE DE JESUS Promethazine HCl 12.5 mg/ (Sodium Chloride) 50.5 mls @ 202 mls/hr IV Q6H PRN PRN Reason: nausea/vomiting Last Infusion: 08/17/22 13:16 Dose: 0 mls/hr Documented By: JOSE DE JESUS Magnesium Oxide (Magnesium Oxide 400 Mg Tablet) 400 mg PO BIDPC [facility] Last Admin: 08/17/22 09:48 Dose: 400 mg Documented By: FLO Metoprolol Tartrate (Metoprolol Tartrate 25 Mg Tablet) 75 mg PO TID [facility]; Protocol Last Admin: 08/17/22 08:54 Dose: 75 mg Documented By: FLO Pt Own (Pantoprazole [Protonix] 40 Mg Tablet,Delayed Release (Dr/Ec)) 40 mg PO DAILY [facility] Last Admin: 08/17/22 08:56 Dose: 40 mg Documented By: FLO Ondansetron HCl (Ondansetron Hcl 4 Mg/2 Ml Vial) 4 mg IVPUSH Q8H PRN PRN Reason: Nausea and Vomiting Last Admin: 08/17/22 15:04 Dose: 4 mg Documented By: FLO Pharmacy Consult (Consult Rx Perform Med Rec) 1 each MISCELLANE ONCE PRN PRN Reason: Consult order Scopolamine (Scopolamine 1.5 Mg Patch.Td.3) 1.5 mg EAR-BEHIND Q72H [facility] Last Admin: 08/15/22 09:52 Dose: 1.5 mg Documented By: MIRNA Sodium Chloride (0.9 % Sodium Chloride Flush 3 Ml Syringe) 3 ml IVFLUSH QSHIFT [facility] Last Admin: 08/17/22 15:12 Dose: 3 ml Documented By: FLO Sumatriptan Succinate (Sumatriptan Succinate 50 Mg Tablet) 50 mg PO DAILY PRN PRN Reason: Headache Last Admin: 08/15/22 01:29 Dose: 50 mg Documented By: SHANTI Labs CBC & Chem 7: 08/15/22 05:19 08/17/22 05:23 Labs: Laboratory Results - last 24 hr 08/17/22 05:23 Anion Gap 12 Estim Creat Clear Calc 105.2 Estimated GFR > 60 Random Glucose 97 Calcium 9.1 D Magnesium 1.1 L* Assessment and Plan (1) Intra-abdominal abscess: Status: Acute (2) S/P colectomy: Status: Acute Plan 62yo F with Crohn's disease, recent prolonged hospitalization for intestinal perforation with multiple abscesses then toxic megacolon due to C. difficile colitis requiring subtotal colectomy.? Discharged to rehab 08/01/22 but re-admitted 08/05/22 with leukocytosis and drainage from her incision, found to have intra-abdominal abscess, s/p drainage via CT guidance 08/07 and 08/11. # intra-abdominal abscesses - on metronidazole d#7, completed pip-ruthie x10d on 08/15.? 2 IR-guided drains in place. # HTN - continue metoprolol. started amlodipine yesterday and will increase dose # hypoK - repleted # hypoMg - replete IV/PO and recheck in AM # migraines - prn sumatriptan # VTE ppx: [facility] Quality Stroke Does the patient have a stroke diagnosis?: No VTE Prior VTE?: No VTE Risk Level:: Medical - moderate - high VTE Device Contraindication: N/A - Device Ordered VTE Drug Contraindication: N/A - Med Ordered
[2022-08-18] MEDS: HYDROmorphone HCl 0.5 MG/0.5 ML SYRINGE IVPUSH ×5 (00:46→21:04)
[2022-08-18 04:00] VITALS: BP 142/67; PULSE 90; RESP 18; TEMP 36.4; O2SAT 97
[2022-08-18] MEDS: Heparin Sodium,Porcine 5,000 UNIT/ML VIAL 5000 UNIT SUBCUT ×3 (06:10→22:18)
[2022-08-18 06:44] LABS: Anion Gap 12 (12-20); Blood Urea Nitrogen 8 mg/dL (9-16); Calcium 9.1 mg/dL (8.4-10.2); Carbon Dioxide 25 mmol/L (22-29); Chloride 103 mmol/L (96-108); Creatinine Clr Calc Pharmacy 111.6; Estimated Glomerular Filt Rate > 60; Glucose Random 97 mg/dL (60-115); Magnesium 1.7 mg/dL (1.6-2.6); Potassium 3.6 mmol/L (3.3-5.1); Sodium 136 mmol/L (135-145)
[2022-08-18 08:00] VITALS: BP 149/78; PULSE 91; RESP 16; TEMP 36.1; O2SAT 95
[2022-08-18] MEDS: metroNIDAZOLE/NS 500 MG/100 ML PIGGYBACK 100 MG IV ×2 (08:15→16:31)
[2022-08-18] MEDS: Magnesium Oxide 400 MG TABLET PO ×2 (08:15→17:55)
[2022-08-18] MEDS: Scopolamine 1.5 MG PATCH.TD.3 EAR-BEHIND (08:15)
[2022-08-18] MEDS: Metoprolol Tartrate 25 MG TABLET 75 MG PO ×3 (08:15→20:27)
[2022-08-18] MEDS: ondansetron HCL 4 MG/2 ML VIAL IVPUSH ×3 (08:15→21:04)
[2022-08-18] MEDS: amLODIPine Besylate 10 MG TABLET PO (08:15)
[2022-08-18] MEDS: 0.9 % Sodium Chloride Flush 3 ML SYRINGE IVFLUSH ×2 (08:16→20:27)
--- NOTE | 2022-08-18 09:23 | P.PNGS_ITS ---
Subjective Subjective Date of Service: 08/18/22 <Tiffanie Villeda PA-C - Last Filed: 08/18/22 10:27> 08/18/22 <Sean Kruger MD - Last Filed: 08/18/22 15:19> Interval history: Was able to stand with walker with PT yesterday. Continues with nausea but better today and was able to eat her whole omelette. <Tiffanie Villeda PA-C - Last Filed: 08/18/22 10:27> Physical Exam Vital Signs: Vital Signs: Last Vital Signs Temp 96.9 F 08/18/22 08:00 Pulse 91 08/18/22 08:00 Resp 16 08/18/22 08:00 BP 149/78 H 08/18/22 08:00 Pulse Ox 95 08/18/22 08:00 O2 Del Method 08/18/22 08:00 O2 Flow Rate 1.0 08/12/22 19:30 BMI result Body Mass Index 27.7 <Tiffanie Villeda PA-C - Last Filed: 08/18/22 10:27> Const: General: no acute distress and alert <Tiffanie Villeda PA-C - Last Filed: 08/18/22 10:27> Orientation/consciousness: patient oriented x3 <NAVDEEP Soto Last Filed: 08/18/22 10:27> Resp: Effort & Inspection: normal respiratory effort <Tiffanie Villeda PA-C - Last Filed: 08/18/22 10:27> GI: Other: drains remain intact with scanty purulent drainage; ostomy pink <Tiffanie Villeda PA-C - Last Filed: 08/18/22 10:27> Inspection: No distended and Yes incision (retention sutures in place, some exudate at inferior aspect ) <NAVDEEP Soto Last Filed: 08/18/22 10:27> Palpation (GI): Soft to palpation, Tenderness to palpation present (GI) (mild, diffuse), no guarding and not rigid <NAVDEEP Soto Last Filed: 08/18/22 10:27> Percussion: Yes normal to percussion <Tiffanie Villeda PA-C - Last Filed: 08/18/22 10:27> Skin: General skin exam: no rashes or lesions noted <Tiffanie Villeda PA-C - Last Filed: 08/18/22 10:27> Neuro: General: patient oriented x3 and moves all extremities <Tiffanie Villeda PA-C - Last Filed: 08/18/22 10:27> Psych: Affect: Sad affect present <Tiffanie Villeda PA-C - Last Filed: 08/18/22 10:27> Objective Data Active Medications Amlodipine Besylate (Amlodipine Besylate 10 Mg Tablet) 10 mg PO DAILY [facility]; Protocol Last Admin: 08/18/22 08:15 Dose: 10 mg Documented By: JOSE DE JESUS Calcium Carbonate (Calcium Carbonate 750 Mg Tab.Chew) 750 mg PO Q4H PRN PRN Reason: Heartburn Last Admin: 08/10/22 19:20 Dose: 750 mg Documented By: SHANTI Heparin Sodium (Porcine) (Heparin Sodium,Porcine 5,000 Unit/Ml Vial) 5,000 unit SUBCUT Q8H [facility] Last Admin: 08/18/22 06:10 Dose: 5,000 unit Documented By: ABIEL Hydromorphone HCl (Hydromorphone Hcl 0.5 Mg/0.5 Ml Syringe) 0.5 mg IVPUSH Q4H PRN; Protocol PRN Reason: Pain, Severe (Pain Scale 7-10) Last Admin: 08/18/22 04:58 Dose: 0.5 mg Documented By: ABIEL Metronidazole (Flagyl) 500 mg in 100 mls @ 100 mls/hr IV Q8H [facility] Last Admin: 08/18/22 08:15 Dose: 100 mls/hr Documented By: JOSE DE JESUS Promethazine HCl 12.5 mg/ (Sodium Chloride) 50.5 mls @ 202 mls/hr IV Q6H PRN PRN Reason: nausea/vomiting Last Infusion: 08/18/22 05:33 Dose: 0 mls/hr Documented By: ABIEL Magnesium Oxide (Magnesium Oxide 400 Mg Tablet) 400 mg PO BIDPC [facility] Last Admin: 08/18/22 08:15 Dose: 400 mg Documented By: JOSE DE JESUS Metoprolol Tartrate (Metoprolol Tartrate 25 Mg Tablet) 75 mg PO TID [facility]; Protocol Last Admin: 08/18/22 08:15 Dose: 75 mg Documented By: JOSE DE JESUS Pt Own (Pantoprazole [Protonix] 40 Mg Tablet,Delayed Release (Dr/Ec)) 40 mg PO DAILY [facility] Last Admin: 08/18/22 08:34 Dose: 40 mg Documented By: JOSE DE JESUS Ondansetron HCl (Ondansetron Hcl 4 Mg/2 Ml Vial) 4 mg IVPUSH Q8H PRN PRN Reason: Nausea and Vomiting Last Admin: 08/18/22 08:15 Dose: 4 mg Documented By: JOSE DE JESUS Pharmacy Consult (Consult Rx Perform Med Rec) 1 each MISCELLANE ONCE PRN PRN Reason: Consult order Scopolamine (Scopolamine 1.5 Mg Patch.Td.3) 1.5 mg EAR-BEHIND Q72H [facility] Last Admin: 08/18/22 08:15 Dose: 1.5 mg Documented By: JOSE DE JESUS Sodium Chloride (0.9 % Sodium Chloride Flush 3 Ml Syringe) 3 ml IVFLUSH QSHIFT [facility] Last Admin: 08/18/22 08:16 Dose: 3 ml Documented By: JOSE DE JESUS Sumatriptan Succinate (Sumatriptan Succinate 50 Mg Tablet) 50 mg PO DAILY PRN PRN Reason: Headache Last Admin: 08/15/22 01:29 Dose: 50 mg Documented By: SHANTI <Tiffanie Villeda PA-C - Last Filed: 08/18/22 10:27> Labs CBC & Chem 7: : 08/15/22 05:19 08/18/22 05:25 <Tiffanie Villeda PA-C - Last Filed: 08/18/22 10:27> Labs: Laboratory Results - last 24 hr 08/18/22 05:25 Anion Gap 12 Estim Creat Clear Calc 111.6 Estimated GFR > 60 Random Glucose 97 Calcium 9.1 Magnesium 1.7 <Tiffanie Villeda PA-C - Last Filed: 08/18/22 10:27> Procedures Date of Service Date of Service: 08/18/22 <Tiffanie Villeda PA-C - Last Filed: 08/18/22 10:27> Progress Note: A&P Assessment and plan (1) Intra-abdominal abscess: Status: Acute <Tiffanie Villeda PA-C - Last Filed: 08/18/22 10:27> Assessment and Plan: Continue to encourage increased activity with PT/OT, slowly able to do more. Will consult psych for ?depression. Encourage p.o. intake. Lytes improved today. Retention sutures removed. Overall doing fairly well. <Tiffanie Villeda PA-C - Last Filed: 08/18/22 10:27> Continue to encourage increased activity with PT/OT, slowly able to do more. Will consult psych for ?depression. Encourage p.o. intake. Lytes improved today. Retention sutures removed. Overall doing fairly well. Patient feels improved today but did have some nausea yesterday after eating. Agree with the above assessment and plan. NOHEMI output minimal at this time. <Sean Kruger MD - Last Filed: 08/18/22 15:19> Time Spent With Patient Time: Total time spent is greater than 50% in coordination of care (as d ocumented) at patient's floor/unit and/or counseling patient: <Tiffanie Villeda PA-C - Last Filed: 08/18/22 10:27> Quality Stroke Does the patient have a stroke diagnosis?: No <Tiffanie Villeda PA-C - Last Filed: 08/18/22 10:27> VTE Prior VTE?: No <Tiffanie Villeda PA-C - Last Filed: 08/18/22 10:27> VTE Risk Level:: Medical - moderate - high <Tiffanie Villeda PA-C - Last Filed: 08/18/22 10:27> VTE Device Contraindication: N/A - Device Ordered <Tiffanie Villeda PA-C - Last Filed: 08/18/22 10:27> VTE Drug Contraindication: N/A - Med Ordered <Tiffanie Villeda PA-C - Last Filed: 08/18/22 10:27>
[2022-08-18] MEDS: HYDROmorphone HCl 0.5 MG/0.5 ML SYRINGE 0.25 MG IVPUSH (11:22)
--- NOTE | 2022-08-18 11:28 | MHC.CLN ---
F/U DIET=REGULAR. ENSURE CLEAR BID PROVIDES ADDITIONAL 480 KCALS, 16 G PROTEIN. MAY HAVE ENSURE PUDDING DESIRED. NAUSEA IMPROVING AND APPEARS TO BE TOLERATING DIET. INTAKE 50-100%. PRIOR STAGE II WOUND TO COCCYX. FOLLOW FOR INTAKE, WEIGHT, DIET TOLERANCE.
--- NOTE | 2022-08-18 11:29 | HO.PM.IMPN ---
Subjective Subjective Date of Service: 08/18/22 Interval History: walked to chair today some nausea pain controlled Review of Systems Review of Systems: Yes all other systems are reviewed and are negative Physical Exam Vital Signs: Vital Signs: Last Vital Signs Temp 96.9 F 08/18/22 08:00 Pulse 91 08/18/22 08:00 Resp 16 08/18/22 08:00 BP 149/78 H 08/18/22 08:00 Pulse Ox 95 08/18/22 08:00 O2 Del Method 08/18/22 08:00 O2 Flow Rate 1.0 08/12/22 19:30 BMI result Body Mass Index 27.7 Gen: in no acute distress HEENT: sclera anicteric, moist mucus membranes Neck: supple Lungs: clear to auscultation bilaterally Heart: regular rate and rhythm, no murmurs Abd: soft, 2 abscess drains with scant liquid discharge, ostomy with liquid brown stool, midline incision Ext: no edema Skin: warm/well-perfused Neuro: alert and oriented x3, no focal findings Psych: appropriate affect Objective Data Active Medications Acetaminophen (Acetaminophen 325 Mg Tablet) 650 mg PO Q6H PRN PRN Reason: fever, pain Amlodipine Besylate (Amlodipine Besylate 10 Mg Tablet) 10 mg PO DAILY [facility]; Protocol Last Admin: 08/18/22 08:15 Dose: 10 mg Documented By: JOSE DE JESUS Calcium Carbonate (Calcium Carbonate 750 Mg Tab.Chew) 750 mg PO Q4H PRN PRN Reason: Heartburn Last Admin: 08/10/22 19:20 Dose: 750 mg Documented By: SHANTI Heparin Sodium (Porcine) (Heparin Sodium,Porcine 5,000 Unit/Ml Vial) 5,000 unit SUBCUT Q8H [facility] Last Admin: 08/18/22 06:10 Dose: 5,000 unit Documented By: OZORALB Hydromorphone HCl (Hydromorphone Hcl 0.5 Mg/0.5 Ml Syringe) 0.5 mg IVPUSH Q4H PRN; Protocol PRN Reason: Pain, Severe (Pain Scale 7-10) Last Admin: 08/18/22 09:32 Dose: 0.5 mg Documented By: JOSE DE JESUS Metronidazole (Flagyl) 500 mg in 100 mls @ 100 mls/hr IV Q8H [facility] Last Infusion: 08/18/22 09:41 Dose: 0 mls/hr Documented By: JOSE DE JESUS Promethazine HCl 12.5 mg/ (Sodium Chloride) 50.5 mls @ 202 mls/hr IV Q6H PRN PRN Reason: nausea/vomiting Last Infusion: 08/18/22 05:33 Dose: 0 mls/hr Documented By: ABIEL Magnesium Oxide (Magnesium Oxide 400 Mg Tablet) 400 mg PO BIDPC [facility] Last Admin: 08/18/22 08:15 Dose: 400 mg Documented By: JOSE DE JESUS Metoprolol Tartrate (Metoprolol Tartrate 25 Mg Tablet) 75 mg PO TID [facility]; Protocol Last Admin: 08/18/22 08:15 Dose: 75 mg Documented By: JOSE DE JESUS Pt Own (Pantoprazole [Protonix] 40 Mg Tablet,Delayed Release (Dr/Ec)) 40 mg PO DAILY [facility] Last Admin: 08/18/22 08:34 Dose: 40 mg Documented By: JOSE DE JESUS Ondansetron HCl (Ondansetron Hcl 4 Mg/2 Ml Vial) 4 mg IVPUSH Q8H PRN PRN Reason: Nausea and Vomiting Last Admin: 08/18/22 08:15 Dose: 4 mg Documented By: JOSE DE JESUS Oxycodone HCl (Oxycodone Hcl Immed Release 5 Mg Tablet) 5 mg PO Q4H PRN PRN Reason: Pain, Moderate (Pain Scale 4-6 Oxycodone HCl (Oxycodone Hcl Immed Release 5 Mg Tablet) 10 mg PO Q4H PRN PRN Reason: Pain, Severe (Pain Scale 7-10) Pharmacy Consult (Consult Rx Perform Med Rec) 1 each MISCELLANE ONCE PRN PRN Reason: Consult order Scopolamine (Scopolamine 1.5 Mg Patch.Td.3) 1.5 mg EAR-BEHIND Q72H [facility] Last Admin: 08/18/22 08:15 Dose: 1.5 mg Documented By: JOSE DE JESUS Sodium Chloride (0.9 % Sodium Chloride Flush 3 Ml Syringe) 3 ml IVFLUSH QSHIFT [facility] Last Admin: 08/18/22 08:16 Dose: 3 ml Documented By: JOSE DE JESUS Sumatriptan Succinate (Sumatriptan Succinate 50 Mg Tablet) 50 mg PO DAILY PRN PRN Reason: Headache Last Admin: 08/15/22 01:29 Dose: 50 mg Documented By: SHANTI Labs CBC & Chem 7: 08/15/22 05:19 08/18/22 05:25 Labs: Laboratory Results - last 24 hr 08/18/22 05:25 Anion Gap 12 Estim Creat Clear Calc 111.6 Estimated GFR > 60 Random Glucose 97 Calcium 9.1 Magnesium 1.7 Assessment and Plan (1) Intra-abdominal abscess: Status: Acute (2) S/P colectomy: Status: Acute Plan 62yo F with Crohn's disease, recent prolonged hospitalization for intestinal perforation with multiple abscesses then toxic megacolon due to C. difficile colitis requiring subtotal colectomy.? Discharged to rehab 08/01/22 but re-admitted 08/05/22 with leukocytosis and drainage from her incision, found to have intra-abdominal abscess, s/p drainage via CT guidance 08/07 and 08/11. # intra-abdominal abscesses - on metronidazole d#8, completed pip-ruthie x10d on 08/15.? 2 IR-guided drains in place. # HTN - continue metoprolol. added amlodipine. # hypoK - repleted # hypoMg - repleted # migraines - prn sumatriptan # VTE ppx: [facility] Quality Stroke Does the patient have a stroke diagnosis?: No VTE Prior VTE?: No VTE Risk Level:: Medical - moderate - high VTE Device Contraindication: N/A - Device Ordered VTE Drug Contraindication: N/A - Med Ordered
--- NOTE | 2022-08-18 13:50 | HO.HSGERICON ---
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 The patient has been readmitted into the hospital after a long hospitalization due to intestinal perforation with multiple abscesses, then toxic megacolon due to C diff ulcerative colitis the requires a subtotal colectomy. She was discharged to the subacute rehab on on 08/01 but she was readmitted on the 08/05 due to leukocytosis and drainage and found later that she has intra-abdominal abscess that needed drainage via CT guidance in 2 occasions. The primary team asked for a consultation regarding to depression. Review the chart, interviewed the patient and her father. The patient does not have prior psychiatric history. A certain point of her life, when she was younger she receive supportive psychotherapy since 1 of her daughters had a psychiatric condition and the needed support. She has never been on antidepressants for any psychiatric condition but she had been on Cymbalta for fibromyalgia in the past. During the interview, the patient admitted depressed mood, anhedonia and poor appetite due to nausea. She adamantly denies suicidal or homicidal ideation, she denies at this moment, psychotic symptoms. The patient reported a loose in a shins with fentanyl that resolved when the drug was discontinue. The patient is future oriented, cooperative and pleasant.. [facility] Medical History Arthritis Back pain Carpal tunnel syndrome COVID-19 vaccine series completed Crohn's disease Environmental allergies Fever of unknown origin Fibromyalgia GERD (gastroesophageal reflux disease) Herniated cervical disc Hx of migraines Intra-abdominal abscess Intra-abdominal abscess Iron deficiency anemia Leukocytosis Perforated viscus PONV (postoperative nausea and vomiting) Shock Thoracic disc herniation Vitamin D deficiency Functional capacity: bed bound Surgical History History of esophagogastroduodenoscopy (EGD) History of surgery History of tonsillectomy History of tubal ligation Hx of cholecystectomy Hx of colonoscopy Hx of fusion of cervical spine Hx of shoulder surgery Status post colostomy Social History Household Members: None Housing: House Are you a primary respiratory care instructor to a significant other at home: No Do you presently have visiting nurse or other home services: No Unable to assess alcohol history related to: Unknown Alcohol intake: never Patient Tobacco Use Status: Former Tobacco user Quit Date: 1999 Tobacco use type: Cigarette e-Cigarette/Vaping Use: Never Used Use of substances other than those prescribed or required for medical reasons: No Currently Displaying Signs/Symptoms of Drug Intoxication Withdrawal: No Do you feel safe in your current relationship?: Yes Is there a partner from a previous relationship who is making you feel unsafe now?: No Are you made to feel afraid or neglected: No Advance Directives: Yes Advance Directives Information Provided: Yes Advance Directives on File: No Advance Directives Date on File: 06/23/20 Do you have thoughts of harming others: None Do you have a plan to hurt others: No Plan Recently lost weight without trying: No Patient : No Poor oral hygiene: No service: No Current occupational status: employed Meds Allergies Allergy/AdvReac Type Severity Reaction Status Date / Time omeprazole [OMEPRAZOLE] Allergy Severe N/V Verified 08/07/22 10:48 tramadol [From Ultram] Allergy Intermediate ITCHING Verified 08/07/22 10:48 ibuprofen [From Motrin] Allergy Unknown Verified 08/07/22 10:48 Active Medications: Current Medications Acetaminophen (Acetaminophen 325 Mg Tablet) 650 mg PO Q6H PRN PRN Reason: fever, pain Amlodipine Besylate (Amlodipine Besylate 10 Mg Tablet) 10 mg PO DAILY [facility]; Protocol Last Admin: 08/18/22 08:15 Dose: 10 mg Calcium Carbonate (Calcium Carbonate 750 Mg Tab.Chew) 750 mg PO Q4H PRN PRN Reason: Heartburn Last Admin: 08/10/22 19:20 Dose: 750 mg Heparin Sodium (Porcine) (Heparin Sodium,Porcine 5,000 Unit/Ml Vial) 5,000 unit SUBCUT Q8H [facility] Last Admin: 08/18/22 06:10 Dose: 5,000 unit Hydromorphone HCl (Hydromorphone Hcl 0.5 Mg/0.5 Ml Syringe) 0.5 mg IVPUSH Q4H PRN; Protocol PRN Reason: Pain, Severe (Pain Scale 7-10) Last Admin: 08/18/22 09:32 Dose: 0.5 mg Metronidazole (Flagyl) 500 mg in 100 mls @ 100 mls/hr IV Q8H [facility] Last Infusion: 08/18/22 09:41 Dose: Infused Promethazine HCl 12.5 mg/ (Sodium Chloride) 50.5 mls @ 202 mls/hr IV Q6H PRN PRN Reason: nausea/vomiting Last Infusion: 08/18/22 11:56 Dose: Infused Magnesium Oxide (Magnesium Oxide 400 Mg Tablet) 400 mg PO BIDPC [facility] Last Admin: 08/18/22 08:15 Dose: 400 mg Metoprolol Tartrate (Metoprolol Tartrate 25 Mg Tablet) 75 mg PO TID [facility]; Protocol Last Admin: 08/18/22 08:15 Dose: 75 mg Pt Own (Pantoprazole [Protonix] 40 Mg Tablet,Delayed Release (Dr/Ec)) 40 mg PO DAILY [facility] Last Admin: 08/18/22 08:34 Dose: 40 mg Ondansetron HCl (Ondansetron Hcl 4 Mg/2 Ml Vial) 4 mg IVPUSH Q8H PRN PRN Reason: Nausea and Vomiting Last Admin: 08/18/22 08:15 Dose: 4 mg Oxycodone HCl (Oxycodone Hcl Immed Release 5 Mg Tablet) 5 mg PO Q4H PRN PRN Reason: Pain, Moderate (Pain Scale 4-6 Oxycodone HCl (Oxycodone Hcl Immed Release 5 Mg Tablet) 10 mg PO Q4H PRN PRN Reason: Pain, Severe (Pain Scale 7-10) Pharmacy Consult (Consult Rx Perform Med Rec) 1 each MISCELLANE ONCE PRN PRN Reason: Consult order Scopolamine (Scopolamine 1.5 Mg Patch.Td.3) 1.5 mg EAR-BEHIND Q72H [facility] Last Admin: 08/18/22 08:15 Dose: 1.5 mg Sodium Chloride (0.9 % Sodium Chloride Flush 3 Ml Syringe) 3 ml IVFLUSH QSHIFT [facility] Last Admin: 08/18/22 08:16 Dose: 3 ml Sumatriptan Succinate (Sumatriptan Succinate 50 Mg Tablet) 50 mg PO DAILY PRN PRN Reason: Headache Last Admin: 08/15/22 01:29 Dose: 50 mg Home Medications Medication Instructions Recorded Confirmed Last Taken Type mesalamine 0.375 gram 1.5 g PO QAM 10/21/20 08/05/22 05/17/22 History capsule,extended release 24 hr (Apriso) methocarbamol 750 mg tablet 750 mg PO TID 10/21/20 08/05/22 05/17/22 History pantoprazole 40 mg tablet,delayed 40 mg PO BEDTIME 10/21/20 08/05/22 05/17/22 History release (Protonix) loratadine 10 mg tablet (Claritin) 10 mg PO DAILY 06/24/21 08/05/22 05/17/22 History duloxetine 60 mg capsule,delayed 1 cap PO BEDTIME 05/18/22 08/05/22 05/17/22 History release ondansetron 8 mg disintegrating 1 tab PO DAILY PRN Nausea 05/18/22 08/05/22 Unknown History tablet rizatriptan 10 mg tablet 1 tab PO DAILY PRN Migraine 05/18/22 08/05/22 Unknown History Headache fremanezumab-vfrm 225 mg/1.5 mL 225 mg subcut Q30D 08/05/22 08/05/22 Unknown History subcutaneous syringe (Ajovy Syringe) metoprolol tartrate 25 mg tablet 75 mg PO TID 08/05/22 08/05/22 Unknown History oxycodone 5 mg tablet 5 mg PO Q6H PRN Pain, Moderate 08/05/22 08/05/22 Unknown History (Pain Scale 4-6 Results Labs CBC and Chem 7: 08/15/22 05:19 08/18/22 05:25 Labs: Laboratory Results - last 24 hr 08/18/22 05:25 Anion Gap 12 Estim Creat Clear Calc 111.6 Estimated GFR > 60 Random Glucose 97 Calcium 9.1 Magnesium 1.7 Assessment and Plan (1) Adjustment disorder with depressed mood: Status: Acute (2) Intra-abdominal abscess: Status: Acute (3) S/P colectomy: Status: Acute (4) Left upper extremity deep vein thrombosis: Status: Acute (5) Crohn's disease: Status: Acute (6) Status post colostomy: Status: Acute (7) Anemia: Status: Acute (8) Fibromyalgia: Status: Acute Plan The patient is a middle-aged female, readmitted after a long hospitalization with multiple abscess and complications that required abdominal abscess drainage by CT guidance. The patient had been acutely seek and she is responding fairly well to antibiotics and medical treatment. Psychiatry was consulted due to depression. The patient does not have prior history of depression or mental illness, she was on Cymbalta before due to fibromyalgia with for improvement. At the moment of the assessment, the patient did not have neurovegetative symptoms and her dysphoria and anxiety are in clear correlation with all her medical problems. She is future oriented and she is able to contract for safety. Plan 1. When medically stable, the patient can be restarted on Cymbalta 20 mg p.o. daily for 3 days and then Cymbalta 30 mg p.o. daily for 3 days and did not Cymbalta 30 mg p.o. b.i.d.. 2. The patient does not have a psychotic disorder but she can have hallucinations with opioids. If the hallucinations are really disturbing, we can use a very low dose of haloperidol 1 mg p.o. q.4 p.r.n. hallucinations. 3. Reassessment a statement, Physical Exam Vital Signs: Last Vital Signs Temp 96.9 F 08/18/22 08:00 Pulse 91 08/18/22 08:00 Resp 16 08/18/22 08:00 BP 149/78 H 08/18/22 08:00 Pulse Ox 95 08/18/22 08:00 O2 Del Method 08/18/22 08:00 O2 Flow Rate 1.0 08/12/22 19:30 BMI result Body Mass Index 27.7 Neuro Cranial nerves: Yes CN's II-XII intact bilaterally Psych Other: The patient is on hospital gowns, awake, alert and cooperative. During the interview, the patient reported mild nausea and abdominal pain but she was able to continue the interview without incidence. Her mood is mildly dysphoric, her affect is constricted but appropriate. Thought process is logical and goal-directed. Thought content denies lucent lesions or delusions no active suicidal or homicidal ideation. Insight within normal limits. Judgment good. Impulse control within normal limits Appearance: grossly normal Mental Status: mental status grossly normal Speech and movement: Normal speech and movement present Affect: Depressed mood present Attitude: cooperative Thought process: Normal thought process present Thought content: Normal thought content present Insight: Fair insight present (Psych) Judgement: Good judgement present (Psych)
[2022-08-18 14:39] VITALS: BP 145/64; PULSE 104
[2022-08-18 16:00] VITALS: BP 133/57; PULSE 87; RESP 18; TEMP 36.7; O2SAT 97
[2022-08-18 19:49] VITALS: BP 131/67; PULSE 87; RESP 19; TEMP 36.4; O2SAT 98
[2022-08-19] MEDS: metroNIDAZOLE/NS 500 MG/100 ML PIGGYBACK 100 MG IV ×3 (00:17→16:03)
[2022-08-19] MEDS: HYDROmorphone HCl 0.5 MG/0.5 ML SYRINGE IVPUSH ×6 (01:29→22:16)
[2022-08-19] MEDS: ondansetron HCL 4 MG/2 ML VIAL IVPUSH ×6 (01:29→22:16)
[2022-08-19 04:00] VITALS: BP 147/71; PULSE 91; RESP 18; TEMP 36.6; O2SAT 98
[2022-08-19] MEDS: Magnesium Oxide 400 MG TABLET PO ×2 (07:43→16:04)
[2022-08-19] MEDS: amLODIPine Besylate 10 MG TABLET PO (07:43)
[2022-08-19] MEDS: Metoprolol Tartrate 25 MG TABLET 75 MG PO ×3 (07:43→20:51)
[2022-08-19] MEDS: Heparin Sodium,Porcine 5,000 UNIT/ML VIAL 5000 UNIT SUBCUT ×3 (07:44→22:16)
[2022-08-19] MEDS: 0.9 % Sodium Chloride Flush 3 ML SYRINGE IVFLUSH ×3 (07:44→22:17)
[2022-08-19 07:53] VITALS: BP 129/63; PULSE 92; RESP 17; TEMP 36.8; O2SAT 97
--- NOTE | 2022-08-19 08:53 | P.PNGS_ITS ---
Subjective Subjective Date of Service: 08/19/22 Interval history: Patient reports feeling improved with q.4 hours Zofran doses. Appetite is improved. She was able to take 5 steps with the walker yesterday. Physical Exam Vital Signs: Vital Signs: Last Vital Signs Temp 98.3 F 08/19/22 07:53 Pulse 92 08/19/22 07:53 Resp 17 08/19/22 07:53 BP 129/63 08/19/22 07:53 Pulse Ox 97 08/19/22 07:53 O2 Del Method 08/19/22 07:53 O2 Flow Rate 1.0 08/12/22 19:30 BMI result Body Mass Index 27.7 Const: General: no acute distress and alert Orientation/consciousness: patient oriented x3 Resp: Effort & Inspection: normal respiratory effort GI: Other: drains remain intact with scanty purulent drainage; ostomy pink, retention sutures out Inspection: No distended and Yes incision (retention sutures in place, some exudate at inferior aspect ) Palpation (GI): Soft to palpation, Tenderness to palpation present (GI) (mild, diffuse), no guarding and not rigid Percussion: Yes normal to percussion Skin: General skin exam: no rashes or lesions noted Neuro: General: patient oriented x3 and moves all extremities Objective Data Active Medications Acetaminophen (Acetaminophen 325 Mg Tablet) 650 mg PO Q6H PRN PRN Reason: fever, pain Amlodipine Besylate (Amlodipine Besylate 10 Mg Tablet) 10 mg PO DAILY [facility]; Protocol Last Admin: 08/19/22 07:43 Dose: 10 mg Documented By: GEORGE Calcium Carbonate (Calcium Carbonate 750 Mg Tab.Chew) 750 mg PO Q4H PRN PRN Reason: Heartburn Last Admin: 08/10/22 19:20 Dose: 750 mg Documented By: SHANTI Duloxetine HCl (Duloxetine Hcl 20 Mg Capsule.) 20 mg PO DAILY [facility] Stop: 08/21/22 09:01 Duloxetine HCl (Duloxetine Hcl 30 Mg Capsule.) 30 mg PO DAILY [facility] Stop: 08/24/22 09:01 Duloxetine HCl (Duloxetine Hcl 30 Mg Capsule.) 30 mg PO BID [facility] Heparin Sodium (Porcine) (Heparin Sodium,Porcine 5,000 Unit/Ml Vial) 5,000 unit SUBCUT Q8H [facility] Last Admin: 08/19/22 07:44 Dose: 5,000 unit Documented By: GEORGE Hydromorphone HCl (Hydromorphone Hcl 0.5 Mg/0.5 Ml Syringe) 0.5 mg IVPUSH Q4H PRN; Protocol PRN Reason: Pain, Severe (Pain Scale 7-10) Last Admin: 08/19/22 05:37 Dose: 0.5 mg Documented By: DILEEP Metronidazole (Flagyl) 500 mg in 100 mls @ 100 mls/hr IV Q8H [facility] Last Infusion: 08/19/22 08:46 Dose: 0 mls/hr Documented By: GEORGE Promethazine HCl 12.5 mg/ (Sodium Chloride) 50.5 mls @ 202 mls/hr IV Q6H PRN PRN Reason: nausea/vomiting Last Infusion: 08/18/22 18:15 Dose: 0 mls/hr Documented By: GEORGE Magnesium Oxide (Magnesium Oxide 400 Mg Tablet) 400 mg PO BIDPC [facility] Last Admin: 08/19/22 07:43 Dose: 400 mg Documented By: GEORGE Metoprolol Tartrate (Metoprolol Tartrate 25 Mg Tablet) 75 mg PO TID [facility]; Protocol Last Admin: 08/19/22 07:43 Dose: 75 mg Documented By: GEORGE Pt Own (Pantoprazole [Protonix] 40 Mg Tablet,Delayed Release (Dr/Ec)) 40 mg PO DAILY [facility] Last Admin: 08/19/22 07:44 Dose: 40 mg Documented By: GEORGE Ondansetron HCl (Ondansetron Hcl 4 Mg/2 Ml Vial) 4 mg IVPUSH Q4H PRN PRN Reason: Nausea and Vomiting Last Admin: 08/19/22 05:37 Dose: 4 mg Documented By: IDLEEP Oxycodone HCl (Oxycodone Hcl Immed Release 5 Mg Tablet) 5 mg PO Q4H PRN PRN Reason: Pain, Moderate (Pain Scale 4-6 Oxycodone HCl (Oxycodone Hcl Immed Release 5 Mg Tablet) 10 mg PO Q4H PRN PRN Reason: Pain, Severe (Pain Scale 7-10) Pharmacy Consult (Consult Rx Perform Med Rec) 1 each MISCELLANE ONCE PRN PRN Reason: Consult order Scopolamine (Scopolamine 1.5 Mg Patch.Td.3) 1.5 mg EAR-BEHIND Q72H [facility] Last Admin: 08/18/22 08:15 Dose: 1.5 mg Documented By: JOSE DE JESUS Sodium Chloride (0.9 % Sodium Chloride Flush 3 Ml Syringe) 3 ml IVFLUSH QSHIFT [facility] Last Admin: 08/19/22 07:44 Dose: 3 ml Documented By: GEORGE Sumatriptan Succinate (Sumatriptan Succinate 50 Mg Tablet) 50 mg PO DAILY PRN PRN Reason: Headache Last Admin: 08/15/22 01:29 Dose: 50 mg Documented By: LINNETTERISFarshad Labs CBC & Chem 7: 08/15/22 05:19 08/18/22 05:25 Procedures Date of Service Date of Service: 08/19/22 Progress Note: A&P Assessment and plan (1) Intra-abdominal abscess: Status: Acute Plan Continue to encourage increased activity with PT/OT, slowly able to do more. Encourage p.o. intake. Continue Zofran Overall doing fairly well. Time Spent With Patient Time: Total time managing care of this patient today ____ minutes. Quality Stroke Does the patient have a stroke diagnosis?: No VTE Prior VTE?: No VTE Risk Level:: Medical - moderate - high VTE Device Contraindication: N/A - Device Ordered VTE Drug Contraindication: N/A - Med Ordered
--- NOTE | 2022-08-19 11:12 | HO.PM.IMPN ---
Subjective Subjective Date of Service: 08/19/22 Interval History: c/o nausea pain controlled declines duloxetine Review of Systems Review of Systems: Yes all other systems are reviewed and are negative Physical Exam Vital Signs: Vital Signs: Last Vital Signs Temp 98.3 F 08/19/22 07:53 Pulse 92 08/19/22 07:53 Resp 17 08/19/22 07:53 BP 129/63 08/19/22 07:53 Pulse Ox 97 08/19/22 07:53 O2 Del Method 08/19/22 07:53 O2 Flow Rate 1.0 08/12/22 19:30 BMI result Body Mass Index 27.7 Gen: in no acute distress HEENT: sclera anicteric, moist mucus membranes Neck: supple Lungs: clear to auscultation bilaterally Heart: regular rate and rhythm, no murmurs Abd: soft, 2 abscess drains with scant liquid discharge, ostomy with liquid brown stool, midline incision Ext: no edema Skin: warm/well-perfused Neuro: alert and oriented x3, no focal findings Psych: appropriate affect Objective Data Active Medications Acetaminophen (Acetaminophen 325 Mg Tablet) 650 mg PO Q6H PRN PRN Reason: fever, pain Amlodipine Besylate (Amlodipine Besylate 10 Mg Tablet) 10 mg PO DAILY [facility]; Protocol Last Admin: 08/19/22 07:43 Dose: 10 mg Documented By: GEORGE Calcium Carbonate (Calcium Carbonate 750 Mg Tab.Chew) 750 mg PO Q4H PRN PRN Reason: Heartburn Last Admin: 08/10/22 19:20 Dose: 750 mg Documented By: SHANTI Heparin Sodium (Porcine) (Heparin Sodium,Porcine 5,000 Unit/Ml Vial) 5,000 unit SUBCUT Q8H [facility] Last Admin: 08/19/22 07:44 Dose: 5,000 unit Documented By: GEORGE Hydromorphone HCl (Hydromorphone Hcl 0.5 Mg/0.5 Ml Syringe) 0.5 mg IVPUSH Q4H PRN; Protocol PRN Reason: Pain, Severe (Pain Scale 7-10) Last Admin: 08/19/22 09:48 Dose: 0.5 mg Documented By: GEORGE Metronidazole (Flagyl) 500 mg in 100 mls @ 100 mls/hr IV Q8H [facility] Last Infusion: 08/19/22 08:46 Dose: 0 mls/hr Documented By: GEORGE Promethazine HCl 12.5 mg/ (Sodium Chloride) 50.5 mls @ 202 mls/hr IV Q6H PRN PRN Reason: nausea/vomiting Last Infusion: 08/18/22 18:15 Dose: 0 mls/hr Documented By: GEORGE Magnesium Oxide (Magnesium Oxide 400 Mg Tablet) 400 mg PO BIDPC [facility] Last Admin: 08/19/22 07:43 Dose: 400 mg Documented By: GEORGE Metoprolol Tartrate (Metoprolol Tartrate 25 Mg Tablet) 75 mg PO TID [facility]; Protocol Last Admin: 08/19/22 07:43 Dose: 75 mg Documented By: GEORGE Pt Own (Pantoprazole [Protonix] 40 Mg Tablet,Delayed Release (Dr/Ec)) 40 mg PO DAILY [facility] Last Admin: 08/19/22 07:44 Dose: 40 mg Documented By: GEORGE Ondansetron HCl (Ondansetron Hcl 4 Mg/2 Ml Vial) 4 mg IVPUSH Q4H PRN PRN Reason: Nausea and Vomiting Last Admin: 08/19/22 09:47 Dose: 4 mg Documented By: GEORGE Oxycodone HCl (Oxycodone Hcl Immed Release 5 Mg Tablet) 5 mg PO Q4H PRN PRN Reason: Pain, Moderate (Pain Scale 4-6 Oxycodone HCl (Oxycodone Hcl Immed Release 5 Mg Tablet) 10 mg PO Q4H PRN PRN Reason: Pain, Severe (Pain Scale 7-10) Pharmacy Consult (Consult Rx Perform Med Rec) 1 each MISCELLANE ONCE PRN PRN Reason: Consult order Scopolamine (Scopolamine 1.5 Mg Patch.Td.3) 1.5 mg EAR-BEHIND Q72H [facility] Last Admin: 08/18/22 08:15 Dose: 1.5 mg Documented By: JOSE DE JESUS Sodium Chloride (0.9 % Sodium Chloride Flush 3 Ml Syringe) 3 ml IVFLUSH QSHIFT [facility] Last Admin: 08/19/22 07:44 Dose: 3 ml Documented By: GEORGE Sumatriptan Succinate (Sumatriptan Succinate 50 Mg Tablet) 50 mg PO DAILY PRN PRN Reason: Headache Last Admin: 08/15/22 01:29 Dose: 50 mg Documented By: SHANTI Labs CBC & Chem 7: 08/15/22 05:19 08/18/22 05:25 Assessment and Plan (1) Intra-abdominal abscess: Status: Acute (2) S/P colectomy: Status: Acute Plan 62yo F with Crohn's disease, recent prolonged hospitalization for intestinal perforation with multiple abscesses then toxic megacolon due to C. difficile colitis requiring subtotal colectomy.? Discharged to rehab 08/01/22 but re-admitted 08/05/22 with leukocytosis and drainage from her incision, found to have intra-abdominal abscess, s/p drainage via CT guidance 08/07 and 08/11. On Surgery service, Medicine consulting # intra-abdominal abscesses - on metronidazole d#9, completed pip-ruthie x10d on 08/15.? 2 IR-guided drains in place, surgery managing # HTN - continue metoprolol. added amlodipine and BP has improved # hypoK - repleted # hypoMg - repleted # migraines - prn sumatriptan # fibromyalgia - declines duloxetine resumption # VTE ppx: [facility] Time Spent With Patient Time: Total time managing care of this patient today ____ minutes. Quality Stroke Does the patient have a stroke diagnosis?: No VTE Prior VTE?: No VTE Risk Level:: Medical - moderate - high VTE Device Contraindication: N/A - Device Ordered VTE Drug Contraindication: N/A - Med Ordered
[2022-08-19 15:19] VITALS: BP 125/60; PULSE 94; RESP 20; TEMP 36.5; O2SAT 95
[2022-08-19 19:21] VITALS: BP 112/66; PULSE 75; RESP 20; TEMP 36.4; O2SAT 98
[2022-08-19 19:31] VITALS: BP 137/63; PULSE 81; RESP 20; TEMP 36.6; O2SAT 97
[2022-08-20] MEDS: metroNIDAZOLE/NS 500 MG/100 ML PIGGYBACK 100 MG IV ×3 (00:20→16:07)
[2022-08-20] MEDS: HYDROmorphone HCl 0.5 MG/0.5 ML SYRINGE IVPUSH ×6 (02:15→23:13)
[2022-08-20] MEDS: ondansetron HCL 4 MG/2 ML VIAL IVPUSH ×6 (02:15→23:13)
[2022-08-20 03:45] VITALS: BP 131/71; PULSE 85; RESP 18; TEMP 36.4; O2SAT 97
[2022-08-20] MEDS: Heparin Sodium,Porcine 5,000 UNIT/ML VIAL 5000 UNIT SUBCUT ×3 (06:28→23:13)
[2022-08-20 07:54] VITALS: BP 140/73; PULSE 90; RESP 19; TEMP 36.6; O2SAT 97
--- NOTE | 2022-08-20 08:28 | PM.PNGS ---
Subjective Subjective Date of Service: 08/20/22 Interval history: Reports eating better yesterday but developed nausea towards the in the day after what she feels was eating too much. Developed some discharge from the lower incision noted overnight. Physical Exam Vital Signs: Vital Signs: Last Vital Signs Temp 97.8 F 08/20/22 07:54 Pulse 90 08/20/22 07:54 Resp 19 08/20/22 07:54 BP 140/73 H 08/20/22 07:54 Pulse Ox 97 08/20/22 07:54 O2 Del Method 08/20/22 07:54 O2 Flow Rate 1.0 08/12/22 19:30 BMI result Body Mass Index 27.7 Const: General: no acute distress and alert Orientation/consciousness: patient oriented x3 Resp: Effort & Inspection: normal respiratory effort GI: Other: The drains remain intact with scanty purulent drainage; ostomy pink, retention sutures out Small area of granulation tissue in the lower incision with some thin non-bilious fluid noted, clean sterile dressings applied. Inspection: No distended and Yes incision Palpation (GI): Soft to palpation, Tenderness to palpation present (GI) (mild, diffuse), no guarding and not rigid Percussion: Yes normal to percussion Skin: General skin exam: no rashes or lesions noted Neuro: General: patient oriented x3 and moves all extremities Objective Data Active Medications Acetaminophen (Acetaminophen 325 Mg Tablet) 650 mg PO Q6H PRN PRN Reason: fever, pain Amlodipine Besylate (Amlodipine Besylate 10 Mg Tablet) 10 mg PO DAILY [facility]; Protocol Last Admin: 08/19/22 07:43 Dose: 10 mg Documented By: GEORGE Calcium Carbonate (Calcium Carbonate 750 Mg Tab.Chew) 750 mg PO Q4H PRN PRN Reason: Heartburn Last Admin: 08/10/22 19:20 Dose: 750 mg Documented By: SHANTI Heparin Sodium (Porcine) (Heparin Sodium,Porcine 5,000 Unit/Ml Vial) 5,000 unit SUBCUT Q8H [facility] Last Admin: 08/20/22 06:28 Dose: 5,000 unit Documented By: DILEEP Hydromorphone HCl (Hydromorphone Hcl 0.5 Mg/0.5 Ml Syringe) 0.5 mg IVPUSH Q4H PRN; Protocol PRN Reason: Pain, Severe (Pain Scale 7-10) Last Admin: 08/20/22 06:28 Dose: 0.5 mg Documented By: DILEEP Metronidazole (Flagyl) 500 mg in 100 mls @ 100 mls/hr IV Q8H [facility] Last Infusion: 08/20/22 01:20 Dose: 0 mls/hr Documented By: DILEEP Promethazine HCl 12.5 mg/ (Sodium Chloride) 50.5 mls @ 202 mls/hr IV Q6H PRN PRN Reason: nausea/vomiting Last Infusion: 08/18/22 18:15 Dose: 0 mls/hr Documented By: GEORGE Magnesium Oxide (Magnesium Oxide 400 Mg Tablet) 400 mg PO BIDPC [facility] Last Admin: 08/19/22 16:04 Dose: 400 mg Documented By: GEORGE Metoprolol Tartrate (Metoprolol Tartrate 25 Mg Tablet) 75 mg PO TID [facility]; Protocol Last Admin: 08/19/22 20:51 Dose: 75 mg Documented By: DILEEP Pt Own (Pantoprazole [Protonix] 40 Mg Tablet,Delayed Release (Dr/Ec)) 40 mg PO DAILY [facility] Last Admin: 08/19/22 07:44 Dose: 40 mg Documented By: GEORGE Ondansetron HCl (Ondansetron Hcl 4 Mg/2 Ml Vial) 4 mg IVPUSH Q4H PRN PRN Reason: Nausea and Vomiting Last Admin: 08/20/22 06:28 Dose: 4 mg Documented By: DILEEP Oxycodone HCl (Oxycodone Hcl Immed Release 5 Mg Tablet) 5 mg PO Q4H PRN PRN Reason: Pain, Moderate (Pain Scale 4-6 Oxycodone HCl (Oxycodone Hcl Immed Release 5 Mg Tablet) 10 mg PO Q4H PRN PRN Reason: Pain, Severe (Pain Scale 7-10) Pharmacy Consult (Consult Rx Perform Med Rec) 1 each MISCELLANE ONCE PRN PRN Reason: Consult order Scopolamine (Scopolamine 1.5 Mg Patch.Td.3) 1.5 mg EAR-BEHIND Q72H [facility] Last Admin: 08/18/22 08:15 Dose: 1.5 mg Documented By: JOSE DE JESUS Sodium Chloride (0.9 % Sodium Chloride Flush 3 Ml Syringe) 3 ml IVFLUSH QSHIFT GAUDENCIO Last Admin: 08/19/22 22:17 Dose: 3 ml Documented By: DILEEP Sumatriptan Succinate (Sumatriptan Succinate 50 Mg Tablet) 50 mg PO DAILY PRN PRN Reason: Headache Last Admin: 08/15/22 01:29 Dose: 50 mg Documented By: LINNETTERISFarshad Labs CBC & Chem 7: 08/15/22 05:19 08/18/22 05:25 Procedures Date of Service Date of Service: 08/20/22 Progress Note: A&P Assessment and plan (1) Intra-abdominal abscess: Status: Acute Plan Overall the patient is improved with increased appetite and only occasional nausea other than continue was nausea. Continue to encourage increased activity with PT/OT, Encourage p.o. intake. Continue Zofran Will monitor output from lower incision, apply dressings as needed. Overall doing fairly well. Time Spent With Patient Time: Total time managing care of this patient today ____ minutes. Quality Stroke Does the patient have a stroke diagnosis?: No VTE Prior VTE?: No VTE Risk Level:: Medical - moderate - high VTE Device Contraindication: N/A - Device Ordered VTE Drug Contraindication: N/A - Med Ordered
[2022-08-20] MEDS: Metoprolol Tartrate 25 MG TABLET 75 MG PO ×3 (08:55→20:15)
[2022-08-20] MEDS: amLODIPine Besylate 10 MG TABLET PO (08:55)
[2022-08-20] MEDS: 0.9 % Sodium Chloride Flush 3 ML SYRINGE IVFLUSH ×3 (08:56→19:03)
--- NOTE | 2022-08-20 11:38 | P.PNIM_ITS ---
Subjective Subjective Date of Service: 08/20/22 Interval History: Complaining of persistent nausea and liquidy stools, denies headache lightheadedness or dizziness, no chest pain no shortness of breath no other acute issues overnight taking Zofran frequently, no overnight events no fevers, no chills. Review of Systems Review of Systems: Yes all other systems are reviewed and are negative Physical Exam Vital Signs: Vital Signs: Last Vital Signs Temp 97.8 F 08/20/22 07:54 Pulse 90 08/20/22 07:54 Resp 19 08/20/22 07:54 BP 140/73 H 08/20/22 07:54 Pulse Ox 97 08/20/22 07:54 O2 Del Method 08/20/22 07:54 O2 Flow Rate 1.0 08/12/22 19:30 BMI result Body Mass Index 27.7 Const: Other: Gen: Awake alert x3 in no acute distress Neck: supple Lungs: clear to auscultation bilaterally Heart: regular rate and rhythm, no murmurs Abd: soft, 2 abscess drains with minimal creamy drainage, ostomy with liquidy stool, midline incision Ext: no edema Skin: warm/well-perfused Neuro: alert and oriented x3, no focal findings Psych: appropriate affect ? Objective Data Active Medications Acetaminophen (Acetaminophen 325 Mg Tablet) 650 mg PO Q6H PRN PRN Reason: fever, pain Amlodipine Besylate (Amlodipine Besylate 10 Mg Tablet) 10 mg PO DAILY [facility]; Protocol Last Admin: 08/20/22 08:55 Dose: 10 mg Documented By: GEORGE Calcium Carbonate (Calcium Carbonate 750 Mg Tab.Chew) 750 mg PO Q4H PRN PRN Reason: Heartburn Last Admin: 08/10/22 19:20 Dose: 750 mg Documented By: SHANTI Heparin Sodium (Porcine) (Heparin Sodium,Porcine 5,000 Unit/Ml Vial) 5,000 unit SUBCUT Q8H [facility] Last Admin: 08/20/22 06:28 Dose: 5,000 unit Documented By: DILEEP Hydromorphone HCl (Hydromorphone Hcl 0.5 Mg/0.5 Ml Syringe) 0.5 mg IVPUSH Q4H PRN; Protocol PRN Reason: Pain, Severe (Pain Scale 7-10) Last Admin: 08/20/22 10:49 Dose: 0.5 mg Documented By: GEORGE Metronidazole (Flagyl) 500 mg in 100 mls @ 100 mls/hr IV Q8H [facility] Last Infusion: 08/20/22 10:09 Dose: 0 mls/hr Documented By: GEORGE Promethazine HCl 12.5 mg/ (Sodium Chloride) 50.5 mls @ 202 mls/hr IV Q6H PRN PRN Reason: nausea/vomiting Last Infusion: 08/18/22 18:15 Dose: 0 mls/hr Documented By: GEORGE Magnesium Oxide (Magnesium Oxide 400 Mg Tablet) 400 mg PO BIDPC [facility] Last Admin: 08/20/22 08:56 Dose: Not Given Documented By: GEORGE Non-Admin Reason: pt refused/possible hold Metoprolol Tartrate (Metoprolol Tartrate 25 Mg Tablet) 75 mg PO TID [facility]; Protocol Last Admin: 08/20/22 08:55 Dose: 75 mg Documented By: GEORGE Pt Own (Pantoprazole [Protonix] 40 Mg Tablet,Delayed Release (Dr/Ec)) 40 mg PO DAILY [facility] Last Admin: 08/20/22 08:56 Dose: 40 mg Documented By: GEORGE Ondansetron HCl (Ondansetron Hcl 4 Mg/2 Ml Vial) 4 mg IVPUSH Q4H PRN PRN Reason: Nausea and Vomiting Last Admin: 08/20/22 10:50 Dose: 4 mg Documented By: GEORGE Oxycodone HCl (Oxycodone Hcl Immed Release 5 Mg Tablet) 5 mg PO Q4H PRN PRN Reason: Pain, Moderate (Pain Scale 4-6 Oxycodone HCl (Oxycodone Hcl Immed Release 5 Mg Tablet) 10 mg PO Q4H PRN PRN Reason: Pain, Severe (Pain Scale 7-10) Pharmacy Consult (Consult Rx Perform Med Rec) 1 each MISCELLANE ONCE PRN PRN Reason: Consult order Scopolamine (Scopolamine 1.5 Mg Patch.Td.3) 1.5 mg EAR-BEHIND Q72H [facility] Last Admin: 08/18/22 08:15 Dose: 1.5 mg Documented By: JOSE DE JESUS Sodium Chloride (0.9 % Sodium Chloride Flush 3 Ml Syringe) 3 ml IVFLUSH QSHIFT GAUD[facility] Last Admin: 08/20/22 08:56 Dose: 3 ml Documented By: GEORGE Sumatriptan Succinate (Sumatriptan Succinate 50 Mg Tablet) 50 mg PO DAILY PRN PRN Reason: Headache Last Admin: 08/15/22 01:29 Dose: 50 mg Documented By: SHANTI Labs CBC & Chem 7: 08/15/22 05:19 08/18/22 05:25 Assessment and Plan (1) Intra-abdominal abscess: Status: Acute (2) S/P colectomy: Status: Acute Plan 62yo F with Crohn's disease, recent prolonged hospitalization for intestinal perforation with multiple abscesses then toxic megacolon due to C. difficile colitis requiring subtotal colectomy.? Discharged to rehab 08/01/22 but re-admitted 08/05/22 with leukocytosis and drainage from her incision, found to have intra-abdominal abscess, s/p drainage via CT guidance 08/07 and 08/11. On Surgery service, Medicine consulting # intra-abdominal abscesses - on metronidazole d#10, completed pip-ruthie x10d on 08/15.? 2 IR-guided drains in place, surgery managing Persistent nausea likely due to Norvasc. Norvasc follow clinical course, loose watery diarrhea question related to magnesium will stop magnesium supplement follow Mag level. # HTN - continue metoprolol 75 mg t.i.d. and follow blood pressure amlodipine discontinued due to worsening nausea. Consider lisinopril if BP elevated # hypoK - repleted # hypoMg - repleted, on magnesium supplement 400 b.i.d. will hold due to diarrhea and repeat levels # migraines - prn sumatriptan # fibromyalgia - declines duloxetine resumption # VTE ppx: UFH Disposition as per General surgery. Time Spent With Patient Time: Total time managing care of this patient today ____ minutes. Quality Stroke Does the patient have a stroke diagnosis?: No VTE Prior VTE?: No VTE Risk Level:: Medical - moderate - high VTE Device Contraindication: N/A - Device Ordered VTE Drug Contraindication: N/A - Med Ordered
[2022-08-20 15:18] VITALS: BP 114/67; PULSE 93; RESP 20; TEMP 36.9; O2SAT 95
[2022-08-20 18:28] VITALS: BP 125/62; PULSE 89; RESP 20; TEMP 36.4; O2SAT 97
[2022-08-20 20:00] VITALS: BP 125/62; PULSE 89; RESP 20; TEMP 36.4; O2SAT 97
[2022-08-21] MEDS: metroNIDAZOLE/NS 500 MG/100 ML PIGGYBACK 100 MG IV ×3 (00:46→15:42)
[2022-08-21] MEDS: 0.9 % Sodium Chloride Flush 3 ML SYRINGE IVFLUSH ×3 (00:53→15:42)
[2022-08-21] MEDS: HYDROmorphone HCl 0.5 MG/0.5 ML SYRINGE IVPUSH ×5 (03:15→20:55)
[2022-08-21] MEDS: ondansetron HCL 4 MG/2 ML VIAL IVPUSH ×5 (03:15→20:55)
[2022-08-21 04:00] VITALS: BP 130/65; PULSE 89; RESP 14; TEMP 36.1; O2SAT 96
[2022-08-21 06:13] LABS: Anion Gap 13 (12-20); Blood Urea Nitrogen 11 mg/dL (9-16); Calcium 9.2 mg/dL (8.4-10.2); Carbon Dioxide 24 mmol/L (22-29); Chloride 103 mmol/L (96-108); Creatinine Clr Calc Pharmacy 103.3; Estimated Glomerular Filt Rate > 60; Glucose Random 100 mg/dL (60-115); Magnesium 1.5 mg/dL (1.6-2.6); Potassium 3.5 mmol/L (3.3-5.1); Sodium 136 mmol/L (135-145)
[2022-08-21] MEDS: Heparin Sodium,Porcine 5,000 UNIT/ML VIAL 5000 UNIT SUBCUT ×3 (06:40→22:37)
[2022-08-21 08:00] VITALS: BP 134/73; PULSE 101; RESP 20; TEMP 35.7; O2SAT 96
--- NOTE | 2022-08-21 08:15 | PM.PNGS ---
Subjective Subjective Date of Service: 08/22/22 Interval history: says she did well with PT - took 5 steps for the first time yesterday says she feels oral intake has been adequate still w/ occ'l pain on left drains scanty output stoma functioning Physical Exam Vital Signs: Vital Signs: Last Vital Signs Temp 96.2 F L 08/21/22 08:00 Pulse 101 H 08/21/22 08:00 Resp 20 08/21/22 08:00 BP 134/73 08/21/22 08:00 Pulse Ox 96 08/21/22 08:00 O2 Del Method 08/21/22 08:00 O2 Flow Rate 1.0 08/12/22 19:30 BMI result Body Mass Index 27.7 Const: General: comfortable and no acute distress Resp: Effort & Inspection: able to speak in complete sentences Cardio: Rate: tachycardic GI: Other: soft, stoma functioning, incision with scanty drainage on lower part, retentions in place Palpation (GI): no guarding Objective Data Active Medications Acetaminophen (Acetaminophen 325 Mg Tablet) 650 mg PO Q6H PRN PRN Reason: fever, pain Calcium Carbonate (Calcium Carbonate 750 Mg Tab.Chew) 750 mg PO Q4H PRN PRN Reason: Heartburn Last Admin: 08/10/22 19:20 Dose: 750 mg Documented By: SHANTI Heparin Sodium (Porcine) (Heparin Sodium,Porcine 5,000 Unit/Ml Vial) 5,000 unit SUBCUT Q8H [facility] Last Admin: 08/21/22 06:40 Dose: 5,000 unit Documented By: CHELLY Hydromorphone HCl (Hydromorphone Hcl 0.5 Mg/0.5 Ml Syringe) 0.5 mg IVPUSH Q4H PRN; Protocol PRN Reason: Pain, Severe (Pain Scale 7-10) Last Admin: 08/21/22 03:15 Dose: 0.5 mg Documented By: CHELLY Metronidazole (Flagyl) 500 mg in 100 mls @ 100 mls/hr IV Q8H [facility] Last Infusion: 08/21/22 01:53 Dose: 0 mls/hr Documented By: CHELLY Promethazine HCl 12.5 mg/ (Sodium Chloride) 50.5 mls @ 202 mls/hr IV Q6H PRN PRN Reason: nausea/vomiting Last Infusion: 08/18/22 18:15 Dose: 0 mls/hr Documented By: GEORGE Magnesium Sulfate (Magnesium Sulfate/H2o) 2 gm in 50 mls @ 25 mls/hr IV ONCE ONE Stop: 08/21/22 09:53 Metoprolol Tartrate (Metoprolol Tartrate 25 Mg Tablet) 75 mg PO TID [facility]; Protocol Last Admin: 08/20/22 20:15 Dose: 75 mg Documented By: DILEEP Pt Own (Pantoprazole [Protonix] 40 Mg Tablet,Delayed Release (Dr/Ec)) 40 mg PO DAILY [facility] Last Admin: 08/20/22 08:56 Dose: 40 mg Documented By: GEORGE Ondansetron HCl (Ondansetron Hcl 4 Mg/2 Ml Vial) 4 mg IVPUSH Q4H PRN PRN Reason: Nausea and Vomiting Last Admin: 08/21/22 03:15 Dose: 4 mg Documented By: CHELLY Oxycodone HCl (Oxycodone Hcl Immed Release 5 Mg Tablet) 5 mg PO Q4H PRN PRN Reason: Pain, Moderate (Pain Scale 4-6 Oxycodone HCl (Oxycodone Hcl Immed Release 5 Mg Tablet) 10 mg PO Q4H PRN PRN Reason: Pain, Severe (Pain Scale 7-10) Pharmacy Consult (Consult Rx Perform Med Rec) 1 each MISCELLANE ONCE PRN PRN Reason: Consult order Scopolamine (Scopolamine 1.5 Mg Patch.Td.3) 1.5 mg EAR-BEHIND Q72H [facility] Last Admin: 08/18/22 08:15 Dose: 1.5 mg Documented By: JOSE DE JESUS Sodium Chloride (0.9 % Sodium Chloride Flush 3 Ml Syringe) 3 ml IVFLUSH QSHIFT [facility] Last Admin: 08/21/22 00:53 Dose: 3 ml Documented By: CHELLY Sumatriptan Succinate (Sumatriptan Succinate 50 Mg Tablet) 50 mg PO DAILY PRN PRN Reason: Headache Last Admin: 08/15/22 01:29 Dose: 50 mg Documented By: LINNETTERISFarshad Labs CBC & Chem 7: 08/15/22 05:19 08/21/22 05:39 Labs: Laboratory Results - last 24 hr 08/21/22 05:39 Anion Gap 13 Estim Creat Clear Calc 103.3 Estimated GFR > 60 Random Glucose 100 Calcium 9.2 Magnesium 1.5 L Procedures Date of Service Date of Service: 08/21/22 Progress Note: A&P Assessment and plan (1) Intra-abdominal abscess: Status: Acute Assessment and Plan: drains in place push PO intake ambulate, PT/OT will review images with Dr Kramer likely dc retentions Time Spent With Patient Time: Total time managing care of this patient today ____ minutes. Quality Stroke Does the patient have a stroke diagnosis?: No VTE Prior VTE?: No VTE Risk Level:: Medical - moderate - high VTE Device Contraindication: N/A - Device Ordered VTE Drug Contraindication: N/A - Med Ordered
[2022-08-21] MEDS: Metoprolol Tartrate 25 MG TABLET 75 MG PO ×3 (08:55→20:55)
[2022-08-21] MEDS: Scopolamine 1.5 MG PATCH.TD.3 EAR-BEHIND (08:56)
[2022-08-21] MEDS: Magnesium Sulfate/H2O 2 GM/50 ML PIGGYBACK IV (09:58)
--- NOTE | 2022-08-21 10:34 | HO.PM.IMPN ---
Subjective Subjective Date of Service: 08/21/22 Interval History: Feels better less nauseous continued to have abdominal pain, no fevers no chills no other acute issues overnight persistent large ostomy output, no lightheadedness or dizziness has been participating PT Review of Systems Review of Systems: Yes all other systems are reviewed and are negative Physical Exam Vital Signs: Vital Signs: Last Vital Signs Temp 96.2 F L 08/21/22 08:00 Pulse 101 H 08/21/22 08:00 Resp 20 08/21/22 08:00 BP 134/73 08/21/22 08:00 Pulse Ox 96 08/21/22 08:00 O2 Del Method 08/21/22 08:00 O2 Flow Rate 1.0 08/12/22 19:30 BMI result Body Mass Index 27.7 Const: Other: Gen:? Awake alert x3 in no acute distress Neck: supple Lungs: clear to auscultation bilaterally Heart: regular rate and rhythm, no murmurs Abd: soft, 2 abscess drains with minimal creamy drainage, ostomy with liquidy stool, midline incision Ext: no edema Skin: warm/well-perfused Neuro: alert and oriented x3, no focal findings Psych: appropriate affect ? Objective Data Active Medications Acetaminophen (Acetaminophen 325 Mg Tablet) 650 mg PO Q6H PRN PRN Reason: fever, pain Calcium Carbonate (Calcium Carbonate 750 Mg Tab.Chew) 750 mg PO Q4H PRN PRN Reason: Heartburn Last Admin: 08/10/22 19:20 Dose: 750 mg Documented By: SHANTI Heparin Sodium (Porcine) (Heparin Sodium,Porcine 5,000 Unit/Ml Vial) 5,000 unit SUBCUT Q8H [facility] Last Admin: 08/21/22 06:40 Dose: 5,000 unit Documented By: CHELLY Hydromorphone HCl (Hydromorphone Hcl 0.5 Mg/0.5 Ml Syringe) 0.5 mg IVPUSH Q4H PRN; Protocol PRN Reason: Pain, Severe (Pain Scale 7-10) Last Admin: 08/21/22 08:51 Dose: 0.5 mg Documented By: CITLALI Metronidazole (Flagyl) 500 mg in 100 mls @ 100 mls/hr IV Q8H [facility] Last Infusion: 08/21/22 10:05 Dose: 100 mls/hr Documented By: CITLALI Promethazine HCl 12.5 mg/ (Sodium Chloride) 50.5 mls @ 202 mls/hr IV Q6H PRN PRN Reason: nausea/vomiting Last Infusion: 08/18/22 18:15 Dose: 0 mls/hr Documented By: GEORGE Metoprolol Tartrate (Metoprolol Tartrate 25 Mg Tablet) 75 mg PO TID [facility]; Protocol Last Admin: 08/21/22 08:55 Dose: 75 mg Documented By: CITLALI Pt Own (Pantoprazole [Protonix] 40 Mg Tablet,Delayed Release (Dr/Ec)) 40 mg PO DAILY [facility] Last Admin: 08/21/22 08:55 Dose: 40 mg Documented By: CITLALI Ondansetron HCl (Ondansetron Hcl 4 Mg/2 Ml Vial) 4 mg IVPUSH Q4H PRN PRN Reason: Nausea and Vomiting Last Admin: 08/21/22 08:51 Dose: 4 mg Documented By: CITLALI Oxycodone HCl (Oxycodone Hcl Immed Release 5 Mg Tablet) 5 mg PO Q4H PRN PRN Reason: Pain, Moderate (Pain Scale 4-6 Oxycodone HCl (Oxycodone Hcl Immed Release 5 Mg Tablet) 10 mg PO Q4H PRN PRN Reason: Pain, Severe (Pain Scale 7-10) Pharmacy Consult (Consult Rx Perform Med Rec) 1 each MISCELLANE ONCE PRN PRN Reason: Consult order Scopolamine (Scopolamine 1.5 Mg Patch.Td.3) 1.5 mg EAR-BEHIND Q72H [facility] Last Admin: 08/21/22 08:56 Dose: 1.5 mg Documented By: CITLALI Sodium Chloride (0.9 % Sodium Chloride Flush 3 Ml Syringe) 3 ml IVFLUSH QSHIFT [facility] Last Admin: 08/21/22 09:05 Dose: 3 ml Documented By: CITLALI Sumatriptan Succinate (Sumatriptan Succinate 50 Mg Tablet) 50 mg PO DAILY PRN PRN Reason: Headache Last Admin: 08/15/22 01:29 Dose: 50 mg Documented By: LINNETTERISM Labs CBC & Chem 7: 08/15/22 05:19 08/21/22 05:39 Labs: Laboratory Results - last 24 hr 08/21/22 05:39 Anion Gap 13 Estim Creat Clear Calc 103.3 Estimated GFR > 60 Random Glucose 100 Calcium 9.2 Magnesium 1.5 L Assessment and Plan (1) Intra-abdominal abscess: Status: Acute (2) S/P colectomy: Status: Acute Plan 62yo F with Crohn's disease, recent prolonged hospitalization for intestinal perforation with multiple abscesses then toxic megacolon due to C. difficile colitis requiring subtotal colectomy.? Discharged to rehab 08/01/22 but re-admitted 08/05/22 with leukocytosis and drainage from her incision, found to have intra-abdominal abscess, s/p drainage via CT guidance 08/07 and 08/11. On Surgery service, Medicine consulting # intra-abdominal abscesses No fevers no chills wound culture grew Clostridium perfringens, blood cultures negative - on metronidazole d#11, completed pip-ruthie x10d on 08/15.? 2 IR-guided drains in place, surgery managing nausea improving encourage out of bed to chair and ambulation with PT # HTN - continue metoprolol 75 mg t.i.d. , Norvasc discontinued blood pressure remained stable # hypoK - repleted # hypoMg magnesium 1.5 this morning will give 2 g of IV magnesium # migraines - prn sumatriptan # fibromyalgia - declines duloxetine resumption # VTE ppx: UFH Disposition as per General surgery. Time Spent With Patient Time: Total time managing care of this patient today ____ minutes. Quality Stroke Does the patient have a stroke diagnosis?: No VTE Prior VTE?: No VTE Risk Level:: Medical - moderate - high VTE Device Contraindication: N/A - Device Ordered VTE Drug Contraindication: N/A - Med Ordered
--- NOTE | 2022-08-21 11:37 | MHC.CLN ---
F/U DIET=REGULAR. ENSURE CLEAR BID PROVIDES ADDITIONAL 480 KCALS, 16 G PROTEIN. NAUSEA IMPROVING AND APPEARS TO BE TOLERATING DIET. INTAKE USUALLY 50-100%. STAGE II WOUND TO COCCYX APPEARS TO BE RESOLVED. FOLLOW FOR INTAKE, WEIGHT, DIET TOLERANCE.
--- NOTE | 2022-08-21 14:16 | MHC.CM.PN ---
PER MD ROUNDS, PT WILL HAVE CT TODAY AND NOT YET READY TO DC DCP REMAINS, RETURN TO [facility] [place] TO COMPLETE STR BLS TRANSPORT
[2022-08-21 16:03] VITALS: BP 122/68; PULSE 92; RESP 18; TEMP 36.5; O2SAT 97
[2022-08-21 19:44] VITALS: BP 123/65; PULSE 86; RESP 18; TEMP 37.1; O2SAT 97
[2022-08-22] MEDS: 0.9 % Sodium Chloride Flush 3 ML SYRINGE IVFLUSH ×3 (00:47→16:29)
[2022-08-22] MEDS: metroNIDAZOLE/NS 500 MG/100 ML PIGGYBACK 100 MG IV ×3 (00:47→16:28)
[2022-08-22] MEDS: HYDROmorphone HCl 0.5 MG/0.5 ML SYRINGE IVPUSH ×6 (01:25→21:41)
[2022-08-22] MEDS: ondansetron HCL 4 MG/2 ML VIAL IVPUSH ×6 (01:25→21:41)
[2022-08-22 02:25] VITALS: RESP 18
[2022-08-22 04:00] VITALS: BP 111/64; PULSE 88; RESP 14; TEMP 36.7; O2SAT 97
[2022-08-22] MEDS: Heparin Sodium,Porcine 5,000 UNIT/ML VIAL 5000 UNIT SUBCUT ×3 (06:31→20:46)
[2022-08-22 07:42] VITALS: BP 140/72; PULSE 91; RESP 18; TEMP 36.2; O2SAT 98
[2022-08-22] MEDS: Metoprolol Tartrate 25 MG TABLET 75 MG PO ×3 (08:31→20:46)
--- NOTE | 2022-08-22 11:06 | HO.PM.IMPN ---
Subjective Subjective Date of Service: 08/22/22 Interval History: No acute issues overnight, patient nausea is improving, complaining of intermittent left abdominal pain that occurs few times a day bearable, on as needed oxycodone, colostomy with liquidy stool, decreased by mouth intake, no fevers no chills, no headache no dizziness overall clinically better. Review of Systems Review of Systems: Yes all other systems are reviewed and are negative Physical Exam Vital Signs: Vital Signs: Last Vital Signs Temp 97.2 F 08/22/22 07:42 Pulse 91 08/22/22 07:42 Resp 18 08/22/22 07:42 BP 140/72 H 08/22/22 07:42 Pulse Ox 98 08/22/22 07:42 O2 Del Method 08/22/22 07:42 O2 Flow Rate 1.0 08/12/22 19:30 BMI result Body Mass Index 27.7 Const: Other: Gen:? Awake alert x3 in no acute distress Neck: supple Lungs: clear to auscultation bilaterally Heart: regular rate and rhythm, no murmurs Abd: soft, 2 abscess drains with minimal creamy drainage, ostomy with liquidy stool, midline incision Ext: no edema Skin: warm/well-perfused Neuro: alert and oriented x3, no focal findings Psych: appropriate affect Objective Data Active Medications Acetaminophen (Acetaminophen 325 Mg Tablet) 650 mg PO Q6H PRN PRN Reason: fever, pain Calcium Carbonate (Calcium Carbonate 750 Mg Tab.Chew) 750 mg PO Q4H PRN PRN Reason: Heartburn Last Admin: 08/10/22 19:20 Dose: 750 mg Documented By: SHANTI Heparin Sodium (Porcine) (Heparin Sodium,Porcine 5,000 Unit/Ml Vial) 5,000 unit SUBCUT Q8H [facility] Last Admin: 08/22/22 06:31 Dose: 5,000 unit Documented By: CHELLY Hydromorphone HCl (Hydromorphone Hcl 0.5 Mg/0.5 Ml Syringe) 0.5 mg IVPUSH Q4H PRN; Protocol PRN Reason: Pain, Severe (Pain Scale 7-10) Last Admin: 08/22/22 09:41 Dose: 0.5 mg Documented By: CITLALI Metronidazole (Flagyl) 500 mg in 100 mls @ 100 mls/hr IV Q8H [facility] Last Infusion: 08/22/22 09:49 Dose: 100 mls/hr Documented By: CITLALI Promethazine HCl 12.5 mg/ (Sodium Chloride) 50.5 mls @ 202 mls/hr IV Q6H PRN PRN Reason: nausea/vomiting Last Infusion: 08/18/22 18:15 Dose: 0 mls/hr Documented By: GEORGE Metoprolol Tartrate (Metoprolol Tartrate 25 Mg Tablet) 75 mg PO TID [facility]; Protocol Last Admin: 08/22/22 08:31 Dose: 75 mg Documented By: CITLALI Pt Own (Pantoprazole [Protonix] 40 Mg Tablet,Delayed Release (Dr/Ec)) 40 mg PO DAILY [facility] Last Admin: 08/22/22 08:31 Dose: 40 mg Documented By: CITLALI Ondansetron HCl (Ondansetron Hcl 4 Mg/2 Ml Vial) 4 mg IVPUSH Q4H PRN PRN Reason: Nausea and Vomiting Last Admin: 08/22/22 09:39 Dose: 4 mg Documented By: CITLALI Oxycodone HCl (Oxycodone Hcl Immed Release 5 Mg Tablet) 5 mg PO Q4H PRN PRN Reason: Pain, Moderate (Pain Scale 4-6 Oxycodone HCl (Oxycodone Hcl Immed Release 5 Mg Tablet) 10 mg PO Q4H PRN PRN Reason: Pain, Severe (Pain Scale 7-10) Pharmacy Consult (Consult Rx Perform Med Rec) 1 each MISCELLANE ONCE PRN PRN Reason: Consult order Scopolamine (Scopolamine 1.5 Mg Patch.Td.3) 1.5 mg EAR-BEHIND Q72H [facility] Last Admin: 08/21/22 08:56 Dose: 1.5 mg Documented By: CITLALI Sodium Chloride (0.9 % Sodium Chloride Flush 3 Ml Syringe) 3 ml IVFLUSH QSHIFT [facility] Last Admin: 08/22/22 08:33 Dose: 3 ml Documented By: CITLALI Sumatriptan Succinate (Sumatriptan Succinate 50 Mg Tablet) 50 mg PO DAILY PRN PRN Reason: Headache Last Admin: 08/15/22 01:29 Dose: 50 mg Documented By: LINNETTERISFarshad Labs CBC & Chem 7: 08/15/22 05:19 08/21/22 05:39 Assessment and Plan (1) Intra-abdominal abscess: Status: Acute (2) S/P colectomy: Status: Acute Plan 62yo F with Crohn's disease, recent prolonged hospitalization for intestinal perforation with multiple abscesses then toxic megacolon due to C. difficile colitis requiring subtotal colectomy.? Discharged to rehab 08/01/22 but re-admitted 08/05/22 with leukocytosis and drainage from her incision, found to have intra-abdominal abscess, s/p drainage via CT guidance 08/07 and 08/11. On Surgery service, Medicine consulting # intra-abdominal abscesses Stable intermittent abdominal pain continue oxycodone prn No fevers, no chills wound culture grew Clostridium perfringens, blood cultures negative - on metronidazole d#12, completed pip-ruthie x10d on 08/15.? 2 IR-guided drains in place, surgery managing nausea improving encourage out of bed to chair and ambulation with PT # HTN - continue metoprolol 75 mg t.i.d. , Norvasc discontinued blood pressure remained stable # hypoK - repleted # hypoMg repleted will repeat level at a.m. # migraines - prn sumatriptan # fibromyalgia - declines duloxetine resumption # VTE ppx: UFH Disposition as per General surgery. Time Spent With Patient Time: Total time managing care of this patient today ____ minutes. Quality Stroke Does the patient have a stroke diagnosis?: No VTE Prior VTE?: No VTE Risk Level:: Medical - moderate - high VTE Device Contraindication: N/A - Device Ordered VTE Drug Contraindication: N/A - Med Ordered
--- NOTE | 2022-08-22 14:06 | P.PNGS_ITS ---
Subjective Subjective Date of Service: 08/23/22 Interval history: good oral intake did a lot more with PT today got out of bed to recliner, walked in room Physical Exam Vital Signs: Vital Signs: Last Vital Signs Temp 97.2 F 08/22/22 07:42 Pulse 91 08/22/22 07:42 Resp 18 08/22/22 07:42 BP 140/72 H 08/22/22 07:42 Pulse Ox 98 08/22/22 07:42 O2 Del Method 08/22/22 07:42 O2 Flow Rate 1.0 08/12/22 19:30 BMI result Body Mass Index 27.7 Const: General: comfortable and no acute distress Resp: Effort & Inspection: normal respiratory effort Cardio: Rate: regular rate GI: Other: soft, stoma functioning, drains with very little output Objective Data Active Medications Acetaminophen (Acetaminophen 325 Mg Tablet) 650 mg PO Q6H PRN PRN Reason: fever, pain Calcium Carbonate (Calcium Carbonate 750 Mg Tab.Chew) 750 mg PO Q4H PRN PRN Reason: Heartburn Last Admin: 08/10/22 19:20 Dose: 750 mg Documented By: SHANTI Heparin Sodium (Porcine) (Heparin Sodium,Porcine 5,000 Unit/Ml Vial) 5,000 unit SUBCUT Q8H [facility] Last Admin: 08/22/22 06:31 Dose: 5,000 unit Documented By: CHELLY Hydromorphone HCl (Hydromorphone Hcl 0.5 Mg/0.5 Ml Syringe) 0.5 mg IVPUSH Q4H PRN; Protocol PRN Reason: Pain, Severe (Pain Scale 7-10) Last Admin: 08/22/22 13:39 Dose: 0.5 mg Documented By: CITLALI Metronidazole (Flagyl) 500 mg in 100 mls @ 100 mls/hr IV Q8H [facility] Last Infusion: 08/22/22 09:49 Dose: 100 mls/hr Documented By: CITLALI Promethazine HCl 12.5 mg/ (Sodium Chloride) 50.5 mls @ 202 mls/hr IV Q6H PRN PRN Reason: nausea/vomiting Last Infusion: 08/18/22 18:15 Dose: 0 mls/hr Documented By: GEORGE Metoprolol Tartrate (Metoprolol Tartrate 25 Mg Tablet) 75 mg PO TID [facility]; Protocol Last Admin: 08/22/22 08:31 Dose: 75 mg Documented By: CITLALI Pt Own (Pantoprazole [Protonix] 40 Mg Tablet,Delayed Release (Dr/Ec)) 40 mg PO DAILY [facility] Last Admin: 08/22/22 08:31 Dose: 40 mg Documented By: CITLALI Ondansetron HCl (Ondansetron Hcl 4 Mg/2 Ml Vial) 4 mg IVPUSH Q4H PRN PRN Reason: Nausea and Vomiting Last Admin: 08/22/22 13:39 Dose: 4 mg Documented By: CITLALI Oxycodone HCl (Oxycodone Hcl Immed Release 5 Mg Tablet) 5 mg PO Q4H PRN PRN Reason: Pain, Moderate (Pain Scale 4-6 Oxycodone HCl (Oxycodone Hcl Immed Release 5 Mg Tablet) 10 mg PO Q4H PRN PRN Reason: Pain, Severe (Pain Scale 7-10) Pharmacy Consult (Consult Rx Perform Med Rec) 1 each MISCELLANE ONCE PRN PRN Reason: Consult order Scopolamine (Scopolamine 1.5 Mg Patch.Td.3) 1.5 mg EAR-BEHIND Q72H [facility] Last Admin: 08/21/22 08:56 Dose: 1.5 mg Documented By: CITLALI Sodium Chloride (0.9 % Sodium Chloride Flush 3 Ml Syringe) 3 ml IVFLUSH QSHIFT [facility] Last Admin: 08/22/22 08:33 Dose: 3 ml Documented By: CITLALI Sumatriptan Succinate (Sumatriptan Succinate 50 Mg Tablet) 50 mg PO DAILY PRN PRN Reason: Headache Last Admin: 08/15/22 01:29 Dose: 50 mg Documented By: ODRISM Labs CBC & Chem 7: 08/15/22 05:19 08/21/22 05:39 Procedures Date of Service Date of Service: 08/22/22 Progress Note: A&P Assessment and plan (1) Intra-abdominal abscess: Status: Acute Assessment and Plan: doing much better physical activity improving abd soft push PO intake looks well stoma functioning Time Spent With Patient Time: Total time managing care of this patient today ____ minutes. Quality Stroke Does the patient have a stroke diagnosis?: No VTE Prior VTE?: No VTE Risk Level:: Medical - moderate - high VTE Device Contraindication: N/A - Device Ordered VTE Drug Contraindication: N/A - Med Ordered
[2022-08-22 15:04] VITALS: BP 120/68; PULSE 98; RESP 17; TEMP 36.5; O2SAT 97
[2022-08-22 19:20] VITALS: BP 134/73; PULSE 94; RESP 17; TEMP 36.4; O2SAT 98
[2022-08-23] MEDS: 0.9 % Sodium Chloride Flush 3 ML SYRINGE IVFLUSH ×4 (00:37→23:13)
[2022-08-23] MEDS: metroNIDAZOLE/NS 500 MG/100 ML PIGGYBACK 100 MG IV ×4 (00:37→23:13)
[2022-08-23] MEDS: ondansetron HCL 4 MG/2 ML VIAL IVPUSH ×6 (01:48→23:13)
[2022-08-23] MEDS: HYDROmorphone HCl 0.5 MG/0.5 ML SYRINGE IVPUSH ×6 (01:49→23:13)
[2022-08-23 03:35] VITALS: BP 112/62; PULSE 84; RESP 18; TEMP 36.6; O2SAT 97
[2022-08-23] MEDS: Heparin Sodium,Porcine 5,000 UNIT/ML VIAL 5000 UNIT SUBCUT ×3 (06:36→23:13)
[2022-08-23] MEDS: Metoprolol Tartrate 25 MG TABLET 75 MG PO ×3 (07:45→20:41)
[2022-08-23 08:00] VITALS: BP 126/64; PULSE 95; RESP 18; TEMP 36.6; O2SAT 98
--- NOTE | 2022-08-23 11:18 | MHC.CLN ---
F/U DIET=REGULAR. PREFERS ENSURE PLUS SUPPLEMENT. CHANGING SUPPLEMENT TO ENSURE BID. PROVIDES 700 KCALS, 40 G PROTEIN. TOLERATING DIET. INTAKE USUALLY 50-100%. FOLLOW FOR INTAKE, WEIGHT, DIET TOLERANCE.
--- NOTE | 2022-08-23 13:42 | PM.PNGS ---
Subjective Subjective Date of Service: 08/24/22 Interval history: still has occasional nausea good oral intake however says she is doing more physical activity stoma functioning Physical Exam Vital Signs: Vital Signs: Last Vital Signs Temp 97.8 F 08/23/22 08:00 Pulse 95 08/23/22 08:00 Resp 18 08/23/22 08:00 BP 126/64 08/23/22 08:00 Pulse Ox 98 08/23/22 08:00 O2 Del Method 08/23/22 08:00 O2 Flow Rate 1.0 08/12/22 19:30 BMI result Body Mass Index 27.7 Const: General: comfortable and no acute distress Resp: Effort & Inspection: normal respiratory effort Cardio: Rhythm: regular rhythm GI: Palpation (GI): Soft to palpation, not firm and no guarding Objective Data Active Medications Acetaminophen (Acetaminophen 325 Mg Tablet) 650 mg PO Q6H PRN PRN Reason: fever, pain Calcium Carbonate (Calcium Carbonate 750 Mg Tab.Chew) 750 mg PO Q4H PRN PRN Reason: Heartburn Last Admin: 08/10/22 19:20 Dose: 750 mg Documented By: SHANTI Heparin Sodium (Porcine) (Heparin Sodium,Porcine 5,000 Unit/Ml Vial) 5,000 unit SUBCUT Q8H [facility] Last Admin: 08/23/22 06:36 Dose: 5,000 unit Documented By: CHELLY Hydromorphone HCl (Hydromorphone Hcl 0.5 Mg/0.5 Ml Syringe) 0.5 mg IVPUSH Q4H PRN; Protocol PRN Reason: Pain, Severe (Pain Scale 7-10) Last Admin: 08/23/22 10:41 Dose: 0.5 mg Documented By: KAMILA Metronidazole (Flagyl) 500 mg in 100 mls @ 100 mls/hr IV Q8H [facility] Last Infusion: 08/23/22 09:18 Dose: 0 mls/hr Documented By: KAMILA Promethazine HCl 12.5 mg/ (Sodium Chloride) 50.5 mls @ 202 mls/hr IV Q6H PRN PRN Reason: nausea/vomiting Last Infusion: 08/18/22 18:15 Dose: 0 mls/hr Documented By: GEORGE Metoprolol Tartrate (Metoprolol Tartrate 25 Mg Tablet) 75 mg PO TID [facility]; Protocol Last Admin: 08/23/22 07:45 Dose: 75 mg Documented By: KAMILA Pt Own (Pantoprazole [Protonix] 40 Mg Tablet,Delayed Release (Dr/Ec)) 40 mg PO DAILY [facility] Last Admin: 08/23/22 07:49 Dose: 40 mg Documented By: KAMILA Ondansetron HCl (Ondansetron Hcl 4 Mg/2 Ml Vial) 4 mg IVPUSH Q4H PRN PRN Reason: Nausea and Vomiting Last Admin: 08/23/22 10:42 Dose: 4 mg Documented By: KAMILA Oxycodone HCl (Oxycodone Hcl Immed Release 5 Mg Tablet) 5 mg PO Q4H PRN PRN Reason: Pain, Moderate (Pain Scale 4-6 Oxycodone HCl (Oxycodone Hcl Immed Release 5 Mg Tablet) 10 mg PO Q4H PRN PRN Reason: Pain, Severe (Pain Scale 7-10) Pharmacy Consult (Consult Rx Perform Med Rec) 1 each MISCELLANE ONCE PRN PRN Reason: Consult order Scopolamine (Scopolamine 1.5 Mg Patch.Td.3) 1.5 mg EAR-BEHIND Q72H [facility] Last Admin: 08/21/22 08:56 Dose: 1.5 mg Documented By: CITLALI Sodium Chloride (0.9 % Sodium Chloride Flush 3 Ml Syringe) 3 ml IVFLUSH QSHIFT [facility] Last Admin: 08/23/22 07:47 Dose: 3 ml Documented By: KAMILA Sumatriptan Succinate (Sumatriptan Succinate 50 Mg Tablet) 50 mg PO DAILY PRN PRN Reason: Headache Last Admin: 08/15/22 01:29 Dose: 50 mg Documented By: LINNETTERISFarshad Labs CBC & Chem 7: 08/15/22 05:19 08/21/22 05:39 Procedures Date of Service Date of Service: 08/23/22 Progress Note: A&P Assessment and plan (1) Intra-abdominal abscess: Status: Acute Assessment and Plan: looks well NOHEMI drains with scanty output abdomen soft stoma functioning well over all has been proving steadily still with occasional nausea continue PT, OT Time Spent With Patient Time: Total time managing care of this patient today ____ minutes. Quality Stroke Does the patient have a stroke diagnosis?: No VTE Prior VTE?: No VTE Risk Level:: Medical - moderate - high VTE Device Contraindication: N/A - Device Ordered VTE Drug Contraindication: N/A - Med Ordered
--- NOTE | 2022-08-23 14:34 | P.PNIM_ITS ---
Subjective Subjective Date of Service: 08/23/22 Interval History: Being followed for abdominal abscess no change in clinical condition in last 24 hours continued to have intermittent nausea and abdominal pain with control with current analgesics no acute issues overnight denies fever chills, no lightheadedness dizziness, no headache no other acute complaints. Review of Systems Review of Systems: Yes all other systems are reviewed and are negative Physical Exam Vital Signs: Vital Signs: Last Vital Signs Temp 97.8 F 08/23/22 08:00 Pulse 95 08/23/22 08:00 Resp 18 08/23/22 08:00 BP 126/64 08/23/22 08:00 Pulse Ox 98 08/23/22 08:00 O2 Del Method 08/23/22 08:00 O2 Flow Rate 1.0 08/12/22 19:30 BMI result Body Mass Index 27.7 Const: Other: Gen:? Awake alert x3 in no acute dis tress Neck: supple Lungs: clear to a uscultation bilate rally Heart: regul ar rate and rhythm , no murmurs Abd: soft, [address] floyd with minimal creamy drainage, o stomy with liquidy stool, midline in cision Ext: no reinaldo ma Skin: warm/well -perfused Neuro: a lert and oriented x3, no focal findi ngs Psych: appropr iate affect Objective Data Active Medications Acetaminophen (Acetaminophen 325 Mg Tablet) 650 mg PO Q6H PRN PRN Reason: fever, pain Calcium Carbonate (Calcium Carbonate 750 Mg Tab.Chew) 750 mg PO Q4H PRN PRN Reason: Heartburn Last Admin: 08/10/22 19:20 Dose: 750 mg Documented By: SHANTI Heparin Sodium (Porcine) (Heparin Sodium,Porcine 5,000 Unit/Ml Vial) 5,000 unit SUBCUT Q8H [facility] Last Admin: 08/23/22 06:36 Dose: 5,000 unit Documented By: CHELLY Hydromorphone HCl (Hydromorphone Hcl 0.5 Mg/0.5 Ml Syringe) 0.5 mg IVPUSH Q4H PRN; Protocol PRN Reason: Pain, Severe (Pain Scale 7-10) Last Admin: 08/23/22 10:41 Dose: 0.5 mg Documented By: KAMILA Metronidazole (Flagyl) 500 mg in 100 mls @ 100 mls/hr IV Q8H [facility] Last Infusion: 08/23/22 09:18 Dose: 0 mls/hr Documented By: KAMILA Promethazine HCl 12.5 mg/ (Sodium Chloride) 50.5 mls @ 202 mls/hr IV Q6H PRN PRN Reason: nausea/vomiting Last Infusion: 08/18/22 18:15 Dose: 0 mls/hr Documented By: GEORGE Metoprolol Tartrate (Metoprolol Tartrate 25 Mg Tablet) 75 mg PO TID [facility]; Protocol Last Admin: 08/23/22 07:45 Dose: 75 mg Documented By: KAMILA Pt Own (Pantoprazole [Protonix] 40 Mg Tablet,Delayed Release (Dr/Ec)) 40 mg PO DAILY [facility] Last Admin: 08/23/22 07:49 Dose: 40 mg Documented By: KAMILA Ondansetron HCl (Ondansetron Hcl 4 Mg/2 Ml Vial) 4 mg IVPUSH Q4H PRN PRN Reason: Nausea and Vomiting Last Admin: 08/23/22 10:42 Dose: 4 mg Documented By: KAMILA Oxycodone HCl (Oxycodone Hcl Immed Release 5 Mg Tablet) 5 mg PO Q4H PRN PRN Reason: Pain, Moderate (Pain Scale 4-6 Oxycodone HCl (Oxycodone Hcl Immed Release 5 Mg Tablet) 10 mg PO Q4H PRN PRN Reason: Pain, Severe (Pain Scale 7-10) Pharmacy Consult (Consult Rx Perform Med Rec) 1 each MISCELLANE ONCE PRN PRN Reason: Consult order Scopolamine (Scopolamine 1.5 Mg Patch.Td.3) 1.5 mg EAR-BEHIND Q72H [facility] Last Admin: 08/21/22 08:56 Dose: 1.5 mg Documented By: CITLALI Sodium Chloride (0.9 % Sodium Chloride Flush 3 Ml Syringe) 3 ml IVFLUSH QSHIFT [facility] Last Admin: 08/23/22 07:47 Dose: 3 ml Documented By: KAMILA Sumatriptan Succinate (Sumatriptan Succinate 50 Mg Tablet) 50 mg PO DAILY PRN PRN Reason: Headache Last Admin: 08/15/22 01:29 Dose: 50 mg Documented By: HO.ODRISM Labs CBC & Chem 7: 08/15/22 05:19 08/21/22 05:39 Assessment and Plan (1) Intra-abdominal abscess: Status: Acute (2) S/P colectomy: Status: Acute Plan 62yo F with Crohn's disease, recent prolonged hospitalization for intestinal perforation with multiple abscesses then toxic megacolon due to C. difficile colitis requiring subtotal colectomy.? Discharged to rehab 08/01/22 but re- admitted 08/05/22 with leukocytosis and drainage from her incision, found to have intra-abdominal abscess, s/p drainage via CT guidance 08/07 and 08/11. On Surgery service, Medicine consulting # intra-abdominal abscesses Stable, intermittent abdominal pain, no worsening symptoms continue oxycodone prn No fevers, no chills wound culture grew Clostridium perfringens, blood cultures negative - on metronidazole d#14, completed pip-ruthie x10d on 08/15.? 2 IR-guided drains in place, surgery managing nausea improving encourage out of bed to chair and ambulation , # HTN - continue metoprolol 75 mg t.i.d. , blood pressure stable # hypoK - repleted # hypoMg repleted will repeat level at a.m. # migraines - prn sumatriptan # fibromyalgia - declines duloxetine resumption # VTE ppx: UFH Disposition as per General surgery. Time Spent With Patient Time: Total time managing care of this patient today ____ minutes. Quality Stroke Does the patient have a stroke diagnosis?: No VTE Prior VTE?: No VTE Risk Level:: Medical - moderate - high VTE Device Contraindication: N/A - Device Ordered VTE Drug Contraindication: N/A - Med Ordered
--- NOTE | 2022-08-23 14:39 | HO.PM.IMPN ---
Subjective Subjective Date of Service: 08/24/22 Interval History: Persistent nausea and intermittent abdominal pain, no change in clinical condition denies lightheadedness dizziness, no fevers no chills, participating with physical therapy. Review of Systems no urgency no frequency CVS no chest pain, no palpitation Respiratory no shortness of breath, no cough Review of Systems: Yes all other systems are reviewed and are negative Physical Exam Vital Signs: Vital Signs: Last Vital Signs Temp 97.8 F 08/23/22 08:00 Pulse 95 08/23/22 08:00 Resp 18 08/23/22 08:00 BP 126/64 08/23/22 08:00 Pulse Ox 98 08/23/22 08:00 O2 Del Method 08/23/22 08:00 O2 Flow Rate 1.0 08/12/22 19:30 BMI result Body Mass Index 27.7 Const: Other: Gen:? Awake alert x3 in no acute distress Neck: supple Lungs: clear to auscultation bilaterally Heart: regular rate and rhythm, no murmurs Abd: soft, 2 abscess drains with minimal drainage, stoma functioning Ext: no edema Skin: warm/well-perfused Neuro: alert and oriented x3, no focal findings Psych: appropriate affect Objective Data Active Medications Acetaminophen (Acetaminophen 325 Mg Tablet) 650 mg PO Q6H PRN PRN Reason: fever, pain Calcium Carbonate (Calcium Carbonate 750 Mg Tab.Chew) 750 mg PO Q4H PRN PRN Reason: Heartburn Last Admin: 08/10/22 19:20 Dose: 750 mg Documented By: SHANTI Heparin Sodium (Porcine) (Heparin Sodium,Porcine 5,000 Unit/Ml Vial) 5,000 unit SUBCUT Q8H [facility] Last Admin: 08/23/22 06:36 Dose: 5,000 unit Documented By: CHELLY Hydromorphone HCl (Hydromorphone Hcl 0.5 Mg/0.5 Ml Syringe) 0.5 mg IVPUSH Q4H PRN; Protocol PRN Reason: Pain, Severe (Pain Scale 7-10) Last Admin: 08/23/22 10:41 Dose: 0.5 mg Documented By: KAMILA Metronidazole (Flagyl) 500 mg in 100 mls @ 100 mls/hr IV Q8H [facility] Last Infusion: 08/23/22 09:18 Dose: 0 mls/hr Documented By: KAMILA Promethazine HCl 12.5 mg/ (Sodium Chloride) 50.5 mls @ 202 mls/hr IV Q6H PRN PRN Reason: nausea/vomiting Last Infusion: 08/18/22 18:15 Dose: 0 mls/hr Documented By: GEORGE Metoprolol Tartrate (Metoprolol Tartrate 25 Mg Tablet) 75 mg PO TID [facility]; Protocol Last Admin: 08/23/22 07:45 Dose: 75 mg Documented By: KAMILA Pt Own (Pantoprazole [Protonix] 40 Mg Tablet,Delayed Release (Dr/Ec)) 40 mg PO DAILY [facility] Last Admin: 08/23/22 07:49 Dose: 40 mg Documented By: KAMILA Ondansetron HCl (Ondansetron Hcl 4 Mg/2 Ml Vial) 4 mg IVPUSH Q4H PRN PRN Reason: Nausea and Vomiting Last Admin: 08/23/22 10:42 Dose: 4 mg Documented By: KAMILA Oxycodone HCl (Oxycodone Hcl Immed Release 5 Mg Tablet) 5 mg PO Q4H PRN PRN Reason: Pain, Moderate (Pain Scale 4-6 Oxycodone HCl (Oxycodone Hcl Immed Release 5 Mg Tablet) 10 mg PO Q4H PRN PRN Reason: Pain, Severe (Pain Scale 7-10) Pharmacy Consult (Consult Rx Perform Med Rec) 1 each MISCELLANE ONCE PRN PRN Reason: Consult order Scopolamine (Scopolamine 1.5 Mg Patch.Td.3) 1.5 mg EAR-BEHIND Q72H [facility] Last Admin: 08/21/22 08:56 Dose: 1.5 mg Documented By: CITLALI Sodium Chloride (0.9 % Sodium Chloride Flush 3 Ml Syringe) 3 ml IVFLUSH QSHIFT [facility] Last Admin: 08/23/22 07:47 Dose: 3 ml Documented By: KAMILA Sumatriptan Succinate (Sumatriptan Succinate 50 Mg Tablet) 50 mg PO DAILY PRN PRN Reason: Headache Last Admin: 08/15/22 01:29 Dose: 50 mg Documented By: LINNETTERISM Labs CBC & Chem 7: 08/15/22 05:19 08/21/22 05:39 Assessment and Plan (1) Intra-abdominal abscess: Status: Acute (2) S/P colectomy: Status: Acute Plan 62yo F with Crohn's disease, recent prolonged hospitalization for intestinal perforation with multiple abscesses then toxic megacolon due to C. difficile colitis requiring subtotal colectomy.? Discharged to rehab 08/01/22 but re-admitted 08/05/22 with leukocytosis and drainage from her incision, found to have intra-abdominal abscess, s/p drainage via CT guidance 08/07 and 08/11. On Surgery service, Medicine consulting # intra-abdominal abscesses Stable, intermittent abdominal pain, no worsening symptoms continue oxycodone prn No fevers, no chills wound culture grew Clostridium perfringens, blood cultures negative - on metronidazole d#15, completed pip-ruthie x10d on 08/15.? 2 IR-guided drains in place, surgery managing nausea improving encourage out of bed to chair and ambulation , # HTN - continue metoprolol 75 mg t.i.d. , blood pressure stable # hypoK - repleted # hypoMg repleted, follow magnesium # migraines - prn sumatriptan # fibromyalgia - declines duloxetine resumption # VTE ppx: UFH Disposition as per General surgery. Time Spent With Patient Time: Total time managing care of this patient today ____ minutes. Quality Stroke Does the patient have a stroke diagnosis?: No VTE Prior VTE?: No VTE Risk Level:: Medical - moderate - high VTE Device Contraindication: N/A - Device Ordered VTE Drug Contraindication: N/A - Med Ordered
[2022-08-23 15:20] VITALS: BP 117/63; PULSE 96; RESP 17; TEMP 36.9; O2SAT 98
[2022-08-23 19:14] VITALS: BP 131/69; PULSE 90; RESP 20; TEMP 36.5; O2SAT 96
[2022-08-24] MEDS: ondansetron HCL 4 MG/2 ML VIAL IVPUSH ×5 (03:26→20:33)
[2022-08-24] MEDS: HYDROmorphone HCl 0.5 MG/0.5 ML SYRINGE IVPUSH ×5 (03:26→20:33)
[2022-08-24 04:00] VITALS: BP 110/66; PULSE 87; RESP 18; TEMP 36.2; O2SAT 98
[2022-08-24] MEDS: Heparin Sodium,Porcine 5,000 UNIT/ML VIAL 5000 UNIT SUBCUT ×3 (06:13→23:20)
[2022-08-24 08:00] VITALS: BP 134/72; PULSE 101; RESP 16; TEMP 36.1; O2SAT 98
[2022-08-24] MEDS: Scopolamine 1.5 MG PATCH.TD.3 EAR-BEHIND (08:45)
[2022-08-24] MEDS: Magnesium Oxide 400 MG TABLET PO (08:45)
[2022-08-24] MEDS: metroNIDAZOLE/NS 500 MG/100 ML PIGGYBACK 100 MG IV ×3 (08:46→23:20)
[2022-08-24] MEDS: Metoprolol Tartrate 25 MG TABLET 75 MG PO ×3 (08:46→20:33)
[2022-08-24] MEDS: 0.9 % Sodium Chloride Flush 3 ML SYRINGE IVFLUSH ×3 (08:49→20:34)
--- NOTE | 2022-08-24 13:50 | PM.PNGS ---
Subjective Subjective Date of Service: 08/24/22 Interval history: In good mood today Says she feels well Did say she some emesis this morning Otherwise has good oral intake Says she has been doing more with regards to ambulation Physical Exam Vital Signs: Vital Signs: Last Vital Signs Temp 97 F 08/24/22 08:00 Pulse 101 H 08/24/22 08:00 Resp 16 08/24/22 08:00 BP 134/72 08/24/22 08:00 Pulse Ox 98 08/24/22 08:00 O2 Del Method 08/24/22 04:00 O2 Flow Rate 1.0 08/12/22 19:30 BMI result Body Mass Index 27.7 Const: General: comfortable and no acute distress Resp: Other: Gets short of breath easily Cardio: Rate: tachycardic GI: Other: Soft, stoma functioning well Objective Data Active Medications Acetaminophen (Acetaminophen 325 Mg Tablet) 650 mg PO Q6H PRN PRN Reason: fever, pain Calcium Carbonate (Calcium Carbonate 750 Mg Tab.Chew) 750 mg PO Q4H PRN PRN Reason: Heartburn Last Admin: 08/10/22 19:20 Dose: 750 mg Documented By: SHANTI Heparin Sodium (Porcine) (Heparin Sodium,Porcine 5,000 Unit/Ml Vial) 5,000 unit SUBCUT Q8H [facility] Last Admin: 08/24/22 06:13 Dose: 5,000 unit Documented By: JOSELUIS Hydromorphone HCl (Hydromorphone Hcl 0.5 Mg/0.5 Ml Syringe) 0.5 mg IVPUSH Q4H PRN; Protocol PRN Reason: Pain, Severe (Pain Scale 7-10) Last Admin: 08/24/22 12:38 Dose: 0.5 mg Documented By: EDDI Metronidazole (Flagyl) 500 mg in 100 mls @ 100 mls/hr IV Q8H [facility] Last Infusion: 08/24/22 09:56 Dose: 0 mls/hr Documented By: EDDI Promethazine HCl 12.5 mg/ (Sodium Chloride) 50.5 mls @ 202 mls/hr IV Q6H PRN PRN Reason: nausea/vomiting Last Infusion: 08/18/22 18:15 Dose: 0 mls/hr Documented By: GEORGE Magnesium Oxide (Magnesium Oxide 400 Mg Tablet) 400 mg PO DAILY [facility] Last Admin: 08/24/22 08:45 Dose: 400 mg Documented By: EDDI Metoprolol Tartrate (Metoprolol Tartrate 25 Mg Tablet) 75 mg PO TID [facility]; Protocol Last Admin: 08/24/22 08:46 Dose: 75 mg Documented By: EDDI Pt Own (Pantoprazole [Protonix] 40 Mg Tablet,Delayed Release (Dr/Ec)) 40 mg PO DAILY [facility] Last Admin: 08/24/22 08:53 Dose: 40 mg Documented By: EDDI Ondansetron HCl (Ondansetron Hcl 4 Mg/2 Ml Vial) 4 mg IVPUSH Q4H PRN PRN Reason: Nausea and Vomiting Last Admin: 08/24/22 12:38 Dose: 4 mg Documented By: EDDI Oxycodone HCl (Oxycodone Hcl Immed Release 5 Mg Tablet) 5 mg PO Q4H PRN PRN Reason: Pain, Moderate (Pain Scale 4-6 Oxycodone HCl (Oxycodone Hcl Immed Release 5 Mg Tablet) 10 mg PO Q4H PRN PRN Reason: Pain, Severe (Pain Scale 7-10) Pharmacy Consult (Consult Rx Perform Med Rec) 1 each MISCELLANE ONCE PRN PRN Reason: Consult order Scopolamine (Scopolamine 1.5 Mg Patch.Td.3) 1.5 mg EAR-BEHIND Q72H [facility] Last Admin: 08/24/22 08:45 Dose: 1.5 mg Documented By: EDDI Sodium Chloride (0.9 % Sodium Chloride Flush 3 Ml Syringe) 3 ml IVFLUSH QSHIFT [facility] Last Admin: 08/24/22 08:49 Dose: 3 ml Documented By: EDDI Sumatriptan Succinate (Sumatriptan Succinate 50 Mg Tablet) 50 mg PO DAILY PRN PRN Reason: Headache Last Admin: 08/15/22 01:29 Dose: 50 mg Documented By: ODRISM Labs CBC & Chem 7: 08/15/22 05:19 08/21/22 05:39 Procedures Date of Service Date of Service: 08/24/22 Progress Note: A&P Assessment and plan (1) Intra-abdominal abscess: Status: Acute Assessment and Plan: Looks well overall Level of physical activity slowly increasing Good oral intake Stoma functioning well Continue physical therapy Re-evaluate after the weekend - she may be able to go home on home PT instead of rehab Time Spent With Patient Time: Total time managing care of this patient today ____ minutes. Quality Stroke Does the patient have a stroke diagnosis?: No VTE Prior VTE?: No VTE Risk Level:: Medical - moderate - high VTE Device Contraindication: N/A - Device Ordered VTE Drug Contraindication: N/A - Med Ordered
[2022-08-24 15:23] VITALS: BP 121/56; PULSE 98; O2SAT 100
[2022-08-24 16:00] VITALS: BP 117/70; PULSE 88; RESP 18; O2SAT 99
[2022-08-24 20:00] VITALS: BP 122/61; PULSE 87; RESP 17; TEMP 36.7; O2SAT 96
[2022-08-24] MEDS: SUMAtriptan succinate 50 MG TABLET PO (21:37)
[2022-08-25] MEDS: HYDROmorphone HCl 0.5 MG/0.5 ML SYRINGE IVPUSH ×6 (00:30→21:17)
[2022-08-25] MEDS: ondansetron HCL 4 MG/2 ML VIAL IVPUSH ×6 (00:30→21:17)
[2022-08-25 04:00] VITALS: BP 121/57; PULSE 84; RESP 17; TEMP 36.2; O2SAT 96
[2022-08-25] MEDS: Heparin Sodium,Porcine 5,000 UNIT/ML VIAL 5000 UNIT SUBCUT ×3 (06:06→23:45)
[2022-08-25 06:19] LABS: Magnesium 1.5 mg/dL (1.6-2.6)
[2022-08-25 08:00] VITALS: BP 116/72; PULSE 99; RESP 18; TEMP 36.7; O2SAT 96
[2022-08-25] MEDS: Metoprolol Tartrate 25 MG TABLET 75 MG PO ×3 (08:38→21:17)
[2022-08-25] MEDS: Magnesium Sulfate/D5W 1 GM/100 ML PIGGYBACK IV (08:38)
[2022-08-25] MEDS: Magnesium Oxide 400 MG TABLET PO (08:38)
[2022-08-25] MEDS: 0.9 % Sodium Chloride Flush 3 ML SYRINGE IVFLUSH ×3 (08:39→19:52)
--- NOTE | 2022-08-25 09:41 | P.PNGS_ITS ---
Subjective Subjective Date of Service: 08/27/22 Interval history: feels well in very good mood says PO intake good occasional nausea stoma functioning Physical Exam Vital Signs: Vital Signs: Last Vital Signs Temp 98.1 F 08/25/22 08:00 Pulse 99 08/25/22 08:00 Resp 18 08/25/22 08:00 BP 116/72 08/25/22 08:00 Pulse Ox 96 08/25/22 08:00 O2 Del Method 08/25/22 08:00 O2 Flow Rate 1.0 08/12/22 19:30 BMI result Body Mass Index 27.7 Const: General: comfortable and no acute distress Resp: Effort & Inspection: normal respiratory effort Cardio: Rate: regular rate GI: Other: stoma functioning well Palpation (GI): Soft to palpation and not firm Objective Data Active Medications Acetaminophen (Acetaminophen 325 Mg Tablet) 650 mg PO Q6H PRN PRN Reason: fever, pain Calcium Carbonate (Calcium Carbonate 750 Mg Tab.Chew) 750 mg PO Q4H PRN PRN Reason: Heartburn Last Admin: 08/10/22 19:20 Dose: 750 mg Documented By: SHANTI Heparin Sodium (Porcine) (Heparin Sodium,Porcine 5,000 Unit/Ml Vial) 5,000 unit SUBCUT Q8H [facility] Last Admin: 08/25/22 06:06 Dose: 5,000 unit Documented By: JOSELUIS Hydromorphone HCl (Hydromorphone Hcl 0.5 Mg/0.5 Ml Syringe) 0.5 mg IVPUSH Q4H PRN; Protocol PRN Reason: Pain, Severe (Pain Scale 7-10) Last Admin: 08/25/22 08:38 Dose: 0.5 mg Documented By: EDDI Metronidazole (Flagyl) 500 mg in 100 mls @ 100 mls/hr IV Q8H [facility] Last Infusion: 08/25/22 00:20 Dose: 0 mls/hr Documented By: JOSELUIS Promethazine HCl 12.5 mg/ (Sodium Chloride) 50.5 mls @ 202 mls/hr IV Q6H PRN PRN Reason: nausea/vomiting Last Infusion: 08/18/22 18:15 Dose: 0 mls/hr Documented By: GEORGE Magnesium Oxide (Magnesium Oxide 400 Mg Tablet) 400 mg PO DAILY [facility] Last Admin: 08/25/22 08:38 Dose: 400 mg Documented By: EDDI Metoprolol Tartrate (Metoprolol Tartrate 25 Mg Tablet) 75 mg PO TID [facility]; Protocol Last Admin: 08/25/22 08:38 Dose: 75 mg Documented By: EDDI Pt Own (Pantoprazole [Protonix] 40 Mg Tablet,Delayed Release (Dr/Ec)) 40 mg PO DAILY [facility] Last Admin: 08/25/22 08:39 Dose: 40 mg Documented By: EDDI Ondansetron HCl (Ondansetron Hcl 4 Mg/2 Ml Vial) 4 mg IVPUSH Q4H PRN PRN Reason: Nausea and Vomiting Last Admin: 08/25/22 08:38 Dose: 4 mg Documented By: EDDI Oxycodone HCl (Oxycodone Hcl Immed Release 5 Mg Tablet) 5 mg PO Q4H PRN PRN Reason: Pain, Moderate (Pain Scale 4-6 Oxycodone HCl (Oxycodone Hcl Immed Release 5 Mg Tablet) 10 mg PO Q4H PRN PRN Reason: Pain, Severe (Pain Scale 7-10) Pharmacy Consult (Consult Rx Perform Med Rec) 1 each MISCELLANE ONCE PRN PRN Reason: Consult order Scopolamine (Scopolamine 1.5 Mg Patch.Td.3) 1.5 mg EAR-BEHIND Q72H [facility] Last Admin: 08/24/22 08:45 Dose: 1.5 mg Documented By: EDDI Sodium Chloride (0.9 % Sodium Chloride Flush 3 Ml Syringe) 3 ml IVFLUSH QSHIFT [facility] Last Admin: 08/25/22 08:39 Dose: 3 ml Documented By: EDDI Sumatriptan Succinate (Sumatriptan Succinate 50 Mg Tablet) 50 mg PO DAILY PRN PRN Reason: Headache Last Admin: 08/24/22 21:37 Dose: 50 mg Documented By: JOSELUIS Labs CBC & Chem 7: 08/15/22 05:19 08/27/22 05:27 Labs: Laboratory Results - last 24 hr 08/25/22 05:47 Magnesium 1.5 L Procedures Date of Service Date of Service: 08/25/22 Progress Note: A&P Assessment and plan (1) Intra-abdominal abscess: Status: Acute Assessment and Plan: drains with scanty output clinically looks well doing more PT good oral intake abd soft stoma functioning will see how she does over the weekend - poss. Rehab vs home PT Time Spent With Patient Time: Total time managing care of this patient today ____ minutes. Quality Stroke Does the patient have a stroke diagnosis?: No VTE Prior VTE?: No VTE Risk Level:: Medical - moderate - high VTE Device Contraindication: N/A - Device Ordered VTE Drug Contraindication: N/A - Med Ordered
[2022-08-25] MEDS: metroNIDAZOLE/NS 500 MG/100 ML PIGGYBACK 100 MG IV ×3 (09:44→23:45)
[2022-08-25 09:58] VITALS: BP 116/72; PULSE 99; O2SAT 96
--- NOTE | 2022-08-25 12:06 | HO.PM.IMPN ---
Subjective Subjective Date of Service: 08/25/22 Interval History: complaining of intermittent nausea and abdominal pain no worsening symptoms, no nausea no vomiting is in good spirits this morning due to the possibility of going home if continue to make progress with physical therapy, denies fever chills, trying to eat better, denies lightheadedness or dizziness no other acute events overnight. Review of Systems Review of Systems: Yes all other systems are reviewed and are negative Physical Exam Vital Signs: Vital Signs: Last Vital Signs Temp 98.1 F 08/25/22 08:00 Pulse 99 08/25/22 09:58 Resp 18 08/25/22 08:00 BP 116/72 08/25/22 09:58 Pulse Ox 96 08/25/22 09:58 O2 Del Method 08/25/22 08:00 O2 Flow Rate 1.0 08/12/22 19:30 BMI result Body Mass Index 27.7 Const: Other: Gen:? Awake alert x3 in no acute distress Neck: supple Lungs: clear to auscultation bilaterally Heart: regular rate and rhythm, no murmurs Abd: soft, 2 abscess drains with minimal drainage, stoma functioning Ext: no edema Skin: warm/well-perfused Neuro: alert and oriented x3, no focal findings Psych: appropriate affect Objective Data Active Medications Acetaminophen (Acetaminophen 325 Mg Tablet) 650 mg PO Q6H PRN PRN Reason: fever, pain Calcium Carbonate (Calcium Carbonate 750 Mg Tab.Chew) 750 mg PO Q4H PRN PRN Reason: Heartburn Last Admin: 08/10/22 19:20 Dose: 750 mg Documented By: SHANTI Heparin Sodium (Porcine) (Heparin Sodium,Porcine 5,000 Unit/Ml Vial) 5,000 unit SUBCUT Q8H [facility] Last Admin: 08/25/22 06:06 Dose: 5,000 unit Documented By: JOSELUIS Hydromorphone HCl (Hydromorphone Hcl 0.5 Mg/0.5 Ml Syringe) 0.5 mg IVPUSH Q4H PRN; Protocol PRN Reason: Pain, Severe (Pain Scale 7-10) Last Admin: 08/25/22 08:38 Dose: 0.5 mg Documented By: EDDI Metronidazole (Flagyl) 500 mg in 100 mls @ 100 mls/hr IV Q8H [facility] Last Infusion: 08/25/22 10:58 Dose: 0 mls/hr Documented By: EDDI Promethazine HCl 12.5 mg/ (Sodium Chloride) 50.5 mls @ 202 mls/hr IV Q6H PRN PRN Reason: nausea/vomiting Last Infusion: 08/18/22 18:15 Dose: 0 mls/hr Documented By: GEORGE Magnesium Oxide (Magnesium Oxide 400 Mg Tablet) 400 mg PO DAILY [facility] Last Admin: 08/25/22 08:38 Dose: 400 mg Documented By: EDDI Metoprolol Tartrate (Metoprolol Tartrate 25 Mg Tablet) 75 mg PO TID [facility]; Protocol Last Admin: 08/25/22 08:38 Dose: 75 mg Documented By: EDDI Pt Own (Pantoprazole [Protonix] 40 Mg Tablet,Delayed Release (Dr/Ec)) 40 mg PO DAILY [facility] Last Admin: 08/25/22 08:39 Dose: 40 mg Documented By: EDDI Ondansetron HCl (Ondansetron Hcl 4 Mg/2 Ml Vial) 4 mg IVPUSH Q4H PRN PRN Reason: Nausea and Vomiting Last Admin: 08/25/22 08:38 Dose: 4 mg Documented By: EDDI Oxycodone HCl (Oxycodone Hcl Immed Release 5 Mg Tablet) 5 mg PO Q4H PRN PRN Reason: Pain, Moderate (Pain Scale 4-6 Oxycodone HCl (Oxycodone Hcl Immed Release 5 Mg Tablet) 10 mg PO Q4H PRN PRN Reason: Pain, Severe (Pain Scale 7-10) Pharmacy Consult (Consult Rx Perform Med Rec) 1 each MISCELLANE ONCE PRN PRN Reason: Consult order Scopolamine (Scopolamine 1.5 Mg Patch.Td.3) 1.5 mg EAR-BEHIND Q72H [facility] Last Admin: 08/24/22 08:45 Dose: 1.5 mg Documented By: EDDI Sodium Chloride (0.9 % Sodium Chloride Flush 3 Ml Syringe) 3 ml IVFLUSH QSHIFT [facility] Last Admin: 08/25/22 08:39 Dose: 3 ml Documented By: EDDI Sumatriptan Succinate (Sumatriptan Succinate 50 Mg Tablet) 50 mg PO DAILY PRN PRN Reason: Headache Last Admin: 08/24/22 21:37 Dose: 50 mg Documented By: JOSELUIS Labs CBC & Chem 7: 08/15/22 05:19 08/21/22 05:39 Labs: Laboratory Results - last 24 hr 08/25/22 05:47 Magnesium 1.5 L Assessment and Plan (1) Intra-abdominal abscess: Status: Acute (2) S/P colectomy: Status: Acute Plan 62yo F with Crohn's disease, recent prolonged hospitalization for intestinal perforation with multiple abscesses then toxic megacolon due to C. difficile colitis requiring subtotal colectomy.? Discharged to rehab 08/01/22 but re-admitted 08/05/22 with leukocytosis and drainage from her incision, found to have intra-abdominal abscess, s/p drainage via CT guidance 08/07 and 08/11. On Surgery service, Medicine consulting # intra-abdominal abscesses Stable, intermittent abdominal pain, no worsening symptoms continue oxycodone prn No fevers, no chills wound culture grew Clostridium perfringens, blood cultures negative - on metronidazole , completed pip-ruthie x10d on 08/15.? 2 IR-guided drains in place, surgery managing encourage ambulation , # HTN - continue metoprolol 75 mg t.i.d. , blood pressure stable # hypoK - repleted # hypoMg magnesium 1.5 continue by mouth magnesium 400 mg and give 1 dose of IV magnesium # migraines - prn sumatriptan # fibromyalgia - declines duloxetine resumption # VTE ppx: UFH Disposition as per General surgery. Time Spent With Patient Time: Total time managing care of this patient today ____ minutes. Quality Stroke Does the patient have a stroke diagnosis?: No VTE Prior VTE?: No VTE Risk Level:: Medical - moderate - high VTE Device Contraindication: N/A - Device Ordered VTE Drug Contraindication: N/A - Med Ordered
--- NOTE | 2022-08-25 12:53 | MHC.CLN ---
F/U DIET=REGULAR. PREFERS ENSURE PLUS SUPPLEMENT. ENSURE BID PROVIDES 700 KCALS, 40 G PROTEIN. TOLERATING DIET. FOLLOW FOR INTAKE, WEIGHT, DIET TOLERANCE.
[2022-08-25 15:39] VITALS: BP 119/66; PULSE 100
[2022-08-25 15:50] VITALS: RESP 18
[2022-08-25 20:00] VITALS: BP 127/67; PULSE 93; RESP 16; TEMP 36.4; O2SAT 96
[2022-08-26] VITALS (7 sets, daily range): BP systolic 115–130; BP diastolic 58–67; PULSE 68–92; RESP 18–19; TEMP 36.1–36.5; O2SAT 96–99
[2022-08-26] MEDS: HYDROmorphone HCl 0.5 MG/0.5 ML SYRINGE IVPUSH ×6 (01:35→22:43)
[2022-08-26] MEDS: ondansetron HCL 4 MG/2 ML VIAL IVPUSH ×6 (01:35→22:42)
[2022-08-26] MEDS: Heparin Sodium,Porcine 5,000 UNIT/ML VIAL 5000 UNIT SUBCUT ×3 (06:18→22:42)
[2022-08-26] MEDS: Metoprolol Tartrate 25 MG TABLET 75 MG PO ×3 (08:41→19:49)
[2022-08-26] MEDS: Magnesium Oxide 400 MG TABLET PO (08:41)
[2022-08-26] MEDS: 0.9 % Sodium Chloride Flush 3 ML SYRINGE IVFLUSH ×3 (08:41→19:50)
[2022-08-26] MEDS: metroNIDAZOLE/NS 500 MG/100 ML PIGGYBACK 100 MG IV ×3 (08:41→23:42)
--- NOTE | 2022-08-26 09:43 | P.PNGS_ITS ---
Subjective Subjective Date of Service: 08/26/22 Interval history: feels well today descibes emesis yesterday morning otherwise good oral intake ate good breakfast Physical Exam Vital Signs: Vital Signs: Last Vital Signs Temp 97.0 F 08/26/22 07:57 Pulse 92 08/26/22 07:57 Resp 18 08/26/22 07:57 BP 127/67 08/26/22 07:57 Pulse Ox 96 08/26/22 07:57 O2 Del Method 08/26/22 07:57 O2 Flow Rate 1.0 08/12/22 19:30 BMI result Body Mass Index 27.7 Const: General: comfortable and no acute distress Cardio: Rate: regular rate GI: Other: stoma funcitoning,,drains with scanty output Palpation (GI): Soft to palpation and not firm Objective Data Active Medications Acetaminophen (Acetaminophen 325 Mg Tablet) 650 mg PO Q6H PRN PRN Reason: fever, pain Calcium Carbonate (Calcium Carbonate 750 Mg Tab.Chew) 750 mg PO Q4H PRN PRN Reason: Heartburn Last Admin: 08/10/22 19:20 Dose: 750 mg Documented By: SHANTI Heparin Sodium (Porcine) (Heparin Sodium,Porcine 5,000 Unit/Ml Vial) 5,000 unit SUBCUT Q8H [facility] Last Admin: 08/26/22 06:18 Dose: 5,000 unit Documented By: ARLENE Hydromorphone HCl (Hydromorphone Hcl 0.5 Mg/0.5 Ml Syringe) 0.5 mg IVPUSH Q4H PRN; Protocol PRN Reason: Pain, Severe (Pain Scale 7-10) Last Admin: 08/26/22 06:24 Dose: 0.5 mg Documented By: ARLENE Metronidazole (Flagyl) 500 mg in 100 mls @ 100 mls/hr IV Q8H [facility] Last Admin: 08/26/22 08:41 Dose: 100 mls/hr Documented By: COTEMA Promethazine HCl 12.5 mg/ (Sodium Chloride) 50.5 mls @ 202 mls/hr IV Q6H PRN PRN Reason: nausea/vomiting Last Infusion: 08/25/22 20:10 Dose: 0 mls/hr Documented By: ARLENE Magnesium Oxide (Magnesium Oxide 400 Mg Tablet) 400 mg PO DAILY [facility] Last Admin: 08/26/22 08:41 Dose: 400 mg Documented By: MILA Metoprolol Tartrate (Metoprolol Tartrate 25 Mg Tablet) 75 mg PO TID [facility]; Protocol Last Admin: 08/26/22 08:41 Dose: 75 mg Documented By: MILA Pt Own (Pantoprazole [Protonix] 40 Mg Tablet,Delayed Release (Dr/Ec)) 40 mg PO DAILY [facility] Last Admin: 08/26/22 08:41 Dose: 40 mg Documented By: MILA Ondansetron HCl (Ondansetron Hcl 4 Mg/2 Ml Vial) 4 mg IVPUSH Q4H PRN PRN Reason: Nausea and Vomiting Last Admin: 08/26/22 06:24 Dose: 4 mg Documented By: CASTILM Oxycodone HCl (Oxycodone Hcl Immed Release 5 Mg Tablet) 5 mg PO Q4H PRN PRN Reason: Pain, Moderate (Pain Scale 4-6 Oxycodone HCl (Oxycodone Hcl Immed Release 5 Mg Tablet) 10 mg PO Q4H PRN PRN Reason: Pain, Severe (Pain Scale 7-10) Pharmacy Consult (Consult Rx Perform Med Rec) 1 each MISCELLANE ONCE PRN PRN Reason: Consult order Scopolamine (Scopolamine 1.5 Mg Patch.Td.3) 1.5 mg EAR-BEHIND Q72H [facility] Last Admin: 08/24/22 08:45 Dose: 1.5 mg Documented By: LYSZ Sodium Chloride (0.9 % Sodium Chloride Flush 3 Ml Syringe) 3 ml IVFLUSH QSHIFT [facility] Last Admin: 08/26/22 08:41 Dose: 3 ml Documented By: MILA Sumatriptan Succinate (Sumatriptan Succinate 50 Mg Tablet) 50 mg PO DAILY PRN PRN Reason: Headache Last Admin: 08/24/22 21:37 Dose: 50 mg Documented By: CROP Labs CBC & Chem 7: 08/15/22 05:19 08/21/22 05:39 Procedures Date of Service Date of Service: 08/26/22 Progress Note: A&P Assessment and plan (1) Intra-abdominal abscess: Status: Acute Assessment and Plan: drains with scanty output clinically improving well possible dc with home PT or Rehab next week looks well Push PO intake OOB Time Spent With Patient Time: Total time managing care of this patient today ____ minutes. Quality Stroke Does the patient have a stroke diagnosis?: No VTE Prior VTE?: No VTE Risk Level:: Medical - moderate - high VTE Device Contraindication: N/A - Device Ordered VTE Drug Contraindication: N/A - Med Ordered
--- NOTE | 2022-08-26 11:59 | HO.PM.IMPN ---
Subjective Subjective Date of Service: 08/26/22 Interval History: complaining of persistent intermittent nausea,vomited x 2, and abdominal pain, no new complaints, no fevers no chills, overall feeling better participating with physical therapy, tolerating diet. Review of Systems Review of Systems: Yes all other systems are reviewed and are negative Physical Exam Vital Signs: Vital Signs: Last Vital Signs Temp 97.0 F 08/26/22 07:57 Pulse 92 08/26/22 07:57 Resp 19 08/26/22 10:36 BP 127/67 08/26/22 07:57 Pulse Ox 96 08/26/22 07:57 O2 Del Method 08/26/22 07:57 O2 Flow Rate 1.0 08/12/22 19:30 BMI result Body Mass Index 27.7 Const: Other: Gen:? Awake alert x3 in no acute dis tress Neck: supple Lungs: clear to a uscultation bilate rally Heart: regul ar rate and rhythm , no murmurs Abd: soft, [address] floyd with minimal purulent drainage , stoma functionin g Ext: no edema Sk in: warm/well-perf used Neuro: alert and oriented x3, n o focal findings P sych: appropriate affect Objective Data Active Medications Acetaminophen (Acetaminophen 325 Mg Tablet) 650 mg PO Q6H PRN PRN Reason: fever, pain Calcium Carbonate (Calcium Carbonate 750 Mg Tab.Chew) 750 mg PO Q4H PRN PRN Reason: Heartburn Last Admin: 08/10/22 19:20 Dose: 750 mg Documented By: SHANTI Heparin Sodium (Porcine) (Heparin Sodium,Porcine 5,000 Unit/Ml Vial) 5,000 unit SUBCUT Q8H [facility] Last Admin: 08/26/22 06:18 Dose: 5,000 unit Documented By: CASTILFarshad Hydromorphone HCl (Hydromorphone Hcl 0.5 Mg/0.5 Ml Syringe) 0.5 mg IVPUSH Q4H PRN; Protocol PRN Reason: Pain, Severe (Pain Scale 7-10) Last Admin: 08/26/22 10:36 Dose: 0.5 mg Documented By: COTEMA Metronidazole (Flagyl) 500 mg in 100 mls @ 100 mls/hr IV Q8H [facility] Last Infusion: 08/26/22 09:50 Dose: 0 mls/hr Documented By: COTEMA Promethazine HCl 12.5 mg/ (Sodium Chloride) 50.5 mls @ 202 mls/hr IV Q6H PRN PRN Reason: nausea/vomiting Last Infusion: 08/26/22 10:09 Dose: 0 mls/hr Documented By: COTEMA Magnesium Oxide (Magnesium Oxide 400 Mg Tablet) 400 mg PO DAILY [facility] Last Admin: 08/26/22 08:41 Dose: 400 mg Documented By: COTEMA Metoprolol Tartrate (Metoprolol Tartrate 25 Mg Tablet) 75 mg PO TID [facility]; Protocol Last Admin: 08/26/22 08:41 Dose: 75 mg Documented By: COTEMA Pt Own (Pantoprazole [Protonix] 40 Mg Tablet,Delayed Release (Dr/Ec)) 40 mg PO DAILY [facility] Last Admin: 08/26/22 08:41 Dose: 40 mg Documented By: ISSAEMA Ondansetron HCl (Ondansetron Hcl 4 Mg/2 Ml Vial) 4 mg IVPUSH Q4H PRN PRN Reason: Nausea and Vomiting Last Admin: 08/26/22 10:41 Dose: 4 mg Documented By: MILA Oxycodone HCl (Oxycodone Hcl Immed Release 5 Mg Tablet) 5 mg PO Q4H PRN PRN Reason: Pain, Moderate (Pain Scale 4-6 Oxycodone HCl (Oxycodone Hcl Immed Release 5 Mg Tablet) 10 mg PO Q4H PRN PRN Reason: Pain, Severe (Pain Scale 7-10) Pharmacy Consult (Consult Rx Perform Med Rec) 1 each MISCELLANE ONCE PRN PRN Reason: Consult order Scopolamine (Scopolamine 1.5 Mg Patch.Td.3) 1.5 mg EAR-BEHIND Q72H [facility] Last Admin: 08/24/22 08:45 Dose: 1.5 mg Documented By: LYSZ Sodium Chloride (0.9 % Sodium Chloride Flush 3 Ml Syringe) 3 ml IVFLUSH QSHIFT [facility] Last Admin: 08/26/22 08:41 Dose: 3 ml Documented By: ISSAEMA Sumatriptan Succinate (Sumatriptan Succinate 50 Mg Tablet) 50 mg PO DAILY PRN PRN Reason: Headache Last Admin: 08/24/22 21:37 Dose: 50 mg Documented By: JOSELUIS Labs CBC & Chem 7: 08/15/22 05:19 08/21/22 05:39 Assessment and Plan (1) Intra-abdominal abscess: Status: Acute (2) S/P colectomy: Status: Acute Plan 62yo F with Crohn's disease, recent prolonged hospitalization for intestinal perforation with multiple abscesses then toxic megacolon due to C. difficile colitis requiring subtotal colectomy.? Discharged to rehab 08/01/22 but re-admitted 08/05/22 with leukocytosis and drainage from her incision, found to have intra-abdominal abscess, s/p drainage via CT guidance 08/07 and 08/11. On Surgery service, Medicine consulting # intra-abdominal abscesses Stable, intermittent abdominal pain, nausea, no worsening symptoms continue oxycodone prn No fevers, no chills wound culture grew Clostridium perfringens, blood cultures negative - on metronidazole day 15 duration as per General surgery , completed pip-ruthie x10d on 08/15.? 2 IR-guided drains in place, surgery managing encourage ambulation ,IS # HTN - continue metoprolol 75 mg t.i.d. , blood pressure stable # hypoK - repleted # hypoMg magnesium 1.5 continue by mouth magnesium 400 mg follow magnesium # migraines - prn sumatriptan, due for Ajovy subcu injection on to bring medicine from home. # fibromyalgia - declines duloxetine resumption # VTE ppx: UFH Disposition as per General surgery. Time Spent With Patient Time: Total time managing care of this patient today ____ minutes. Quality Stroke Does the patient have a stroke diagnosis?: No VTE Prior VTE?: No VTE Risk Level:: Medical - moderate - high VTE Device Contraindication: N/A - Device Ordered VTE Drug Contraindication: N/A - Med Ordered
[2022-08-27] VITALS (7 sets, daily range): BP systolic 107–132; BP diastolic 58–76; PULSE 89–98; RESP 16–19; TEMP 36.3–37.1; O2SAT 97–98
[2022-08-27] MEDS: ondansetron HCL 4 MG/2 ML VIAL IVPUSH ×5 (03:17→20:54)
[2022-08-27] MEDS: HYDROmorphone HCl 0.5 MG/0.5 ML SYRINGE IVPUSH ×5 (03:17→20:46)
[2022-08-27] MEDS: Heparin Sodium,Porcine 5,000 UNIT/ML VIAL 5000 UNIT SUBCUT ×3 (05:57→23:43)
[2022-08-27 06:52] LABS: Anion Gap 13 (12-20); Blood Urea Nitrogen 7 mg/dL (9-16); Calcium 9.6 mg/dL (8.4-10.2); Carbon Dioxide 26 mmol/L (22-29); Chloride 103 mmol/L (96-108); Creatinine Clr Calc Pharmacy 96.2; Estimated Glomerular Filt Rate > 60; Glucose Random 94 mg/dL (60-115); Magnesium 1.6 mg/dL (1.6-2.6); Potassium 3.9 mmol/L (3.3-5.1); Sodium 138 mmol/L (135-145)
[2022-08-27] MEDS: Scopolamine 1.5 MG PATCH.TD.3 EAR-BEHIND (08:31)
[2022-08-27] MEDS: Metoprolol Tartrate 25 MG TABLET 75 MG PO ×3 (08:31→20:47)
[2022-08-27] MEDS: Magnesium Oxide 400 MG TABLET PO (08:32)
[2022-08-27] MEDS: 0.9 % Sodium Chloride Flush 3 ML SYRINGE IVFLUSH ×3 (08:32→20:47)
[2022-08-27] MEDS: metroNIDAZOLE/NS 500 MG/100 ML PIGGYBACK 100 MG IV ×3 (08:32→23:43)
--- NOTE | 2022-08-27 09:20 | PM.PNGS ---
Subjective Subjective Date of Service: 08/28/22 Interval history: nauseous this morning stoma with output denies abdl pain Physical Exam Vital Signs: Vital Signs: Last Vital Signs Temp 97.4 F 08/27/22 08:00 Pulse 98 08/27/22 08:00 Resp 18 08/27/22 08:31 BP 132/70 08/27/22 08:00 Pulse Ox 98 08/27/22 08:00 O2 Del Method 08/27/22 08:00 O2 Flow Rate 1.0 08/12/22 19:30 BMI result Body Mass Index 27.7 Const: General: comfortable and no acute distress Resp: Effort & Inspection: normal respiratory effort Cardio: Rhythm: regular rhythm GI: Other: stoma viable, with output, drains with scanty output Palpation (GI): Soft to palpation, not firm and nontender Objective Data Active Medications Acetaminophen (Acetaminophen 325 Mg Tablet) 650 mg PO Q6H PRN PRN Reason: fever, pain Calcium Carbonate (Calcium Carbonate 750 Mg Tab.Chew) 750 mg PO Q4H PRN PRN Reason: Heartburn Last Admin: 08/10/22 19:20 Dose: 750 mg Documented By: SHANTI Heparin Sodium (Porcine) (Heparin Sodium,Porcine 5,000 Unit/Ml Vial) 5,000 unit SUBCUT Q8H [facility] Last Admin: 08/27/22 05:57 Dose: 5,000 unit Documented By: CASTILFarshad Hydromorphone HCl (Hydromorphone Hcl 0.5 Mg/0.5 Ml Syringe) 0.5 mg IVPUSH Q4H PRN; Protocol PRN Reason: Pain, Severe (Pain Scale 7-10) Last Admin: 08/27/22 08:31 Dose: 0.5 mg Documented By: COTEMA Metronidazole (Flagyl) 500 mg in 100 mls @ 100 mls/hr IV Q8H [facility] Last Admin: 08/27/22 08:32 Dose: 100 mls/hr Documented By: COTEMA Promethazine HCl 12.5 mg/ (Sodium Chloride) 50.5 mls @ 202 mls/hr IV Q6H PRN PRN Reason: nausea/vomiting Last Infusion: 08/27/22 06:54 Dose: 0 mls/hr Documented By: COTEMA Magnesium Oxide (Magnesium Oxide 400 Mg Tablet) 400 mg PO DAILY [facility] Last Admin: 08/27/22 08:32 Dose: 400 mg Documented By: COTEMA Metoprolol Tartrate (Metoprolol Tartrate 25 Mg Tablet) 75 mg PO TID [facility]; Protocol Last Admin: 08/27/22 08:31 Dose: 75 mg Documented By: COTEMA Pt Own (Pantoprazole [Protonix] 40 Mg Tablet,Delayed Release (Dr/Ec)) 40 mg PO DAILY [facility] Last Admin: 08/27/22 08:43 Dose: 40 mg Documented By: COTEMA Non-Formulary Medication (Pt Own (Ajovy 225mg/ 1.5 Ml Syringe)) 225 mg SUBCUT ONCE ONE Stop: 08/29/22 18:01 Ondansetron HCl (Ondansetron Hcl 4 Mg/2 Ml Vial) 4 mg IVPUSH Q4H PRN PRN Reason: Nausea and Vomiting Last Admin: 08/27/22 08:31 Dose: 4 mg Documented By: ISSAEMA Oxycodone HCl (Oxycodone Hcl Immed Release 5 Mg Tablet) 5 mg PO Q4H PRN PRN Reason: Pain, Moderate (Pain Scale 4-6 Oxycodone HCl (Oxycodone Hcl Immed Release 5 Mg Tablet) 10 mg PO Q4H PRN PRN Reason: Pain, Severe (Pain Scale 7-10) Pharmacy Consult (Consult Rx Perform Med Rec) 1 each MISCELLANE ONCE PRN PRN Reason: Consult order Scopolamine (Scopolamine 1.5 Mg Patch.Td.3) 1.5 mg EAR-BEHIND Q72H [facility] Last Admin: 08/27/22 08:31 Dose: 1.5 mg Documented By: MILA Sodium Chloride (0.9 % Sodium Chloride Flush 3 Ml Syringe) 3 ml IVFLUSH QSHIFT [facility] Last Admin: 08/27/22 08:32 Dose: 3 ml Documented By: ISSAEMA Sumatriptan Succinate (Sumatriptan Succinate 50 Mg Tablet) 50 mg PO DAILY PRN PRN Reason: Headache Last Admin: 08/24/22 21:37 Dose: 50 mg Documented By: JOSELUIS Labs CBC & Chem 7: 08/15/22 05:19 08/27/22 05:27 Labs: Laboratory Results - last 24 hr 08/27/22 05:27 Anion Gap 13 Estim Creat Clear Calc 96.2 Estimated GFR > 60 Random Glucose 94 Calcium 9.6 Magnesium 1.6 Procedures Date of Service Date of Service: 08/27/22 Progress Note: A&P Assessment and plan (1) Intra-abdominal abscess: Status: Acute Assessment and Plan: has nausea perodically she says he has a hx of gastroparesis - always has had issue of nausea and vomitting in the past clinically not obstructed Phenergan and Zofran will consider Erthythromycin as promotilin plan ffup CT tomorrow OOB Time Spent With Patient Time: Total time managing care of this patient today ____ minutes. Quality Stroke Does the patient have a stroke diagnosis?: No VTE Prior VTE?: No VTE Risk Level:: Medical - moderate - high VTE Device Contraindication: N/A - Device Ordered VTE Drug Contraindication: N/A - Med Ordered
--- NOTE | 2022-08-27 09:59 | HO.PM.IMPN ---
Subjective Subjective Date of Service: 08/27/22 Interval History: complaining of persistent intermittent nausea,vomited small amounts, and abdominal pain, no new complaints, no fevers no chills, overall feeling better participating with physical therapy OOB,, tolerating diet. Review of Systems General: No fevers, malaise, unintentional weight loss Cardiovascular: No chest pain, palpitations, or leg edema Respiratory: No shortness of breath, wheezing, cough GI: +nausea, +vomiting, +abd pain. No diarrhea, constipation, melena, hematochezia : No dysuria, hematuria, increased urinary frequency MSK: No myalgia, back pain Neuro: No headaches, weakness, paresthesias Skin: No rashes or lesions Physical Exam Vital Signs: Vital Signs: Last Vital Signs Temp 97.4 F 08/27/22 08:00 Pulse 98 08/27/22 08:00 Resp 18 08/27/22 08:31 BP 132/70 08/27/22 08:00 Pulse Ox 98 08/27/22 08:00 O2 Del Method 08/27/22 08:00 O2 Flow Rate 1.0 08/12/22 19:30 BMI result Body Mass Index 27.7 Gen:? Awake alert x3 in no acute distress Neck: supple Lungs: clear to auscultation bilaterally Heart: regular rate and rhythm, no murmurs Abd: soft, 2 abscess drains with minimal purulent drainage, stoma functioning Ext: no edema Skin: warm/well-perfused Neuro: alert and oriented x3, no focal findings Psych: appropriate affect Objective Data Active Medications Acetaminophen (Acetaminophen 325 Mg Tablet) 650 mg PO Q6H PRN PRN Reason: fever, pain Calcium Carbonate (Calcium Carbonate 750 Mg Tab.Chew) 750 mg PO Q4H PRN PRN Reason: Heartburn Last Admin: 08/10/22 19:20 Dose: 750 mg Documented By: SHANTI Heparin Sodium (Porcine) (Heparin Sodium,Porcine 5,000 Unit/Ml Vial) 5,000 unit SUBCUT Q8H [facility] Last Admin: 08/27/22 05:57 Dose: 5,000 unit Documented By: ARLENE Hydromorphone HCl (Hydromorphone Hcl 0.5 Mg/0.5 Ml Syringe) 0.5 mg IVPUSH Q4H PRN; Protocol PRN Reason: Pain, Severe (Pain Scale 7-10) Last Admin: 08/27/22 08:31 Dose: 0.5 mg Documented By: COTEMA Metronidazole (Flagyl) 500 mg in 100 mls @ 100 mls/hr IV Q8H [facility] Last Infusion: 08/27/22 09:45 Dose: 0 mls/hr Documented By: COTEMA Promethazine HCl 12.5 mg/ (Sodium Chloride) 50.5 mls @ 202 mls/hr IV Q6H PRN PRN Reason: nausea/vomiting Last Infusion: 08/27/22 06:54 Dose: 0 mls/hr Documented By: COTEMA Magnesium Oxide (Magnesium Oxide 400 Mg Tablet) 400 mg PO DAILY [facility] Last Admin: 08/27/22 08:32 Dose: 400 mg Documented By: COTEMA Metoprolol Tartrate (Metoprolol Tartrate 25 Mg Tablet) 75 mg PO TID [facility]; Protocol Last Admin: 08/27/22 08:31 Dose: 75 mg Documented By: COTEMA Pt Own (Pantoprazole [Protonix] 40 Mg Tablet,Delayed Release (Dr/Ec)) 40 mg PO DAILY [facility] Last Admin: 08/27/22 08:43 Dose: 40 mg Documented By: COTEMA Non-Formulary Medication (Pt Own (Ajovy 225mg/ 1.5 Ml Syringe)) 225 mg SUBCUT ONCE ONE Stop: 08/29/22 18:01 Ondansetron HCl (Ondansetron Hcl 4 Mg/2 Ml Vial) 4 mg IVPUSH Q4H PRN PRN Reason: Nausea and Vomiting Last Admin: 08/27/22 08:31 Dose: 4 mg Documented By: COTEMA Oxycodone HCl (Oxycodone Hcl Immed Release 5 Mg Tablet) 5 mg PO Q4H PRN PRN Reason: Pain, Moderate (Pain Scale 4-6 Oxycodone HCl (Oxycodone Hcl Immed Release 5 Mg Tablet) 10 mg PO Q4H PRN PRN Reason: Pain, Severe (Pain Scale 7-10) Pharmacy Consult (Consult Rx Perform Med Rec) 1 each MISCELLANE ONCE PRN PRN Reason: Consult order Scopolamine (Scopolamine 1.5 Mg Patch.Td.3) 1.5 mg EAR-BEHIND Q72H [facility] Last Admin: 08/27/22 08:31 Dose: 1.5 mg Documented By: COTEMA Sodium Chloride (0.9 % Sodium Chloride Flush 3 Ml Syringe) 3 ml IVFLUSH QSHIFT [facility] Last Admin: 08/27/22 08:32 Dose: 3 ml Documented By: COTEMA Sumatriptan Succinate (Sumatriptan Succinate 50 Mg Tablet) 50 mg PO DAILY PRN PRN Reason: Headache Last Admin: 08/24/22 21:37 Dose: 50 mg Documented By: JOSELUIS Labs CBC & Chem 7: 08/15/22 05:19 08/27/22 05:27 Labs: Laboratory Results - last 24 hr 08/27/22 05:27 Anion Gap 13 Estim Creat Clear Calc 96.2 Estimated GFR > 60 Random Glucose 94 Calcium 9.6 Magnesium 1.6 Assessment and Plan (1) Intra-abdominal abscess: Status: Acute (2) S/P colectomy: Status: Acute Plan 62yo F with Crohn's disease, recent prolonged hospitalization for intestinal perforation with multiple abscesses then toxic megacolon due to C. difficile colitis requiring subtotal colectomy.? Discharged to rehab 08/01/22 but re-admitted 08/05/22 with leukocytosis and drainage from her incision, found to have intra-abdominal abscess, s/p drainage via CT guidance 08/07 and 08/11. On Surgery service, Medicine consulting # intra-abdominal abscesses Stable, intermittent abdominal pain, nausea, no worsening symptoms continue oxycodone prn Phenergen and zofran for n/v per gen surgery No fevers, no chills wound culture grew Clostridium perfringens, blood cultures negative - on metronidazole day 16 duration as per General surgery , completed pip-ruthie x10d on 08/15.? 2 IR-guided drains in place, surgery managing encourage ambulation ,IS # HTN - continue metoprolol 75 mg t.i.d. , blood pressure stable # hypoK - repleted # hypoMg magnesium 1.5 continue by mouth magnesium 400 mg follow magnesium # migraines - prn sumatriptan, due for Ajovy subcu injection on to bring medicine from home. # fibromyalgia - declines duloxetine resumption # VTE ppx: UFH Disposition as per General surgery. Time Spent With Patient Time: Total time managing care of this patient today ____ minutes. Quality Stroke Does the patient have a stroke diagnosis?: No VTE Prior VTE?: No VTE Risk Level:: Medical - moderate - high VTE Device Contraindication: N/A - Device Ordered VTE Drug Contraindication: N/A - Med Ordered
[2022-08-28] MEDS: ondansetron HCL 4 MG/2 ML VIAL IVPUSH ×6 (00:47→21:07)
[2022-08-28] MEDS: HYDROmorphone HCl 0.5 MG/0.5 ML SYRINGE IVPUSH ×6 (00:47→21:07)
[2022-08-28 04:00] VITALS: BP 130/69; PULSE 91; RESP 18; TEMP 36.6; O2SAT 97
[2022-08-28] MEDS: Heparin Sodium,Porcine 5,000 UNIT/ML VIAL 5000 UNIT SUBCUT ×3 (07:34→23:17)
[2022-08-28] MEDS: metroNIDAZOLE/NS 500 MG/100 ML PIGGYBACK 100 MG IV ×3 (07:35→23:17)
[2022-08-28] MEDS: 0.9 % Sodium Chloride Flush 3 ML SYRINGE IVFLUSH ×2 (07:35→16:06)
[2022-08-28] MEDS: Magnesium Oxide 400 MG TABLET PO (07:35)
[2022-08-28] MEDS: Metoprolol Tartrate 25 MG TABLET 75 MG PO ×3 (07:35→21:07)
[2022-08-28 08:00] VITALS: BP 116/63; PULSE 83; RESP 18; TEMP 36.7; O2SAT 96
[2022-08-28] MEDS: iohexoL 350 MG/ML 100 ML INFUS..BTL 85 ML IV (09:43)
--- NOTE | 2022-08-28 10:39 | P.PNIM_ITS ---
Subjective Subjective Date of Service: 08/28/22 Review of Systems Follow-up abdominal abscess, consultation Still with nausea and some episodes of vomiting Diffuse abdominal pain Physical Exam Vital Signs: Vital Signs: Last Vital Signs Temp 98.0 F 08/28/22 08:00 Pulse 83 08/28/22 08:00 Resp 18 08/28/22 08:00 BP 116/63 08/28/22 08:00 Pulse Ox 96 08/28/22 08:00 O2 Del Method 08/28/22 08:00 O2 Flow Rate 1.0 08/12/22 19:30 BMI result Body Mass Index 27.7 Appearing in no acute distress lung sounds are clear to auscultation heart regular rate rhythm, clear S1, S2 positive bowel sounds, tender abdomen diffusely Ostomy intact, red stoma neuro patient is alert x3, no focal deficits Objective Data Active Medications Acetaminophen (Acetaminophen 325 Mg Tablet) 650 mg PO Q6H PRN PRN Reason: fever, pain Calcium Carbonate (Calcium Carbonate 750 Mg Tab.Chew) 750 mg PO Q4H PRN PRN Reason: Heartburn Last Admin: 08/10/22 19:20 Dose: 750 mg Documented By: SHANTI Heparin Sodium (Porcine) (Heparin Sodium,Porcine 5,000 Unit/Ml Vial) 5,000 unit SUBCUT Q8H [facility] Last Admin: 08/28/22 07:34 Dose: 5,000 unit Documented By: SALO Hydromorphone HCl (Hydromorphone Hcl 0.5 Mg/0.5 Ml Syringe) 0.5 mg IVPUSH Q4H PRN; Protocol PRN Reason: Pain, Severe (Pain Scale 7-10) Last Admin: 08/28/22 08:58 Dose: 0.5 mg Documented By: SALO Metronidazole (Flagyl) 500 mg in 100 mls @ 100 mls/hr IV Q8H [facility] Last Infusion: 08/28/22 08:50 Dose: 0 mls/hr Documented By: SALO Promethazine HCl 12.5 mg/ (Sodium Chloride) 50.5 mls @ 202 mls/hr IV Q6H PRN PRN Reason: nausea/vomiting Last Infusion: 08/27/22 18:40 Dose: 0 mls/hr Documented By: COTEMA Magnesium Oxide (Magnesium Oxide 400 Mg Tablet) 400 mg PO DAILY [facility] Last Admin: 08/28/22 07:35 Dose: 400 mg Documented By: SALO Metoprolol Tartrate (Metoprolol Tartrate 25 Mg Tablet) 75 mg PO TID [facility]; Protocol Last Admin: 08/28/22 07:35 Dose: 75 mg Documented By: SALO Pt Own (Pantoprazole [Protonix] 40 Mg Tablet,Delayed Release (Dr/Ec)) 40 mg PO DAILY [facility] Last Admin: 08/28/22 07:36 Dose: 40 mg Documented By: SALO Non-Formulary Medication (Pt Own (Ajovy 225mg/ 1.5 Ml Syringe)) 225 mg SUBCUT ONCE ONE Stop: 08/29/22 18:01 Ondansetron HCl (Ondansetron Hcl 4 Mg/2 Ml Vial) 4 mg IVPUSH Q4H PRN PRN Reason: Nausea and Vomiting Last Admin: 08/28/22 08:58 Dose: 4 mg Documented By: SALO Pharmacy Consult (Consult Rx Perform Med Rec) 1 each MISCELLANE ONCE PRN PRN Reason: Consult order Scopolamine (Scopolamine 1.5 Mg Patch.Td.3) 1.5 mg EAR-BEHIND Q72H [facility] Last Admin: 08/27/22 08:31 Dose: 1.5 mg Documented By: COTEMA Sodium Chloride (0.9 % Sodium Chloride Flush 3 Ml Syringe) 3 ml IVFLUSH QSHIFT [facility] Last Admin: 08/28/22 07:35 Dose: 3 ml Documented By: SALO Sumatriptan Succinate (Sumatriptan Succinate 50 Mg Tablet) 50 mg PO DAILY PRN PRN Reason: Headache Last Admin: 08/24/22 21:37 Dose: 50 mg Documented By: JOSELUIS Labs CBC & Chem 7: 08/15/22 05:19 08/27/22 05:27 Assessment and Plan (1) Intra-abdominal abscess: Status: Acute (2) S/P colectomy: Status: Acute Plan 62yo F with Crohn's disease, recent prolonged hospitalization for intestinal perforation with multiple abscesses then toxic megacolon due to C. difficile colitis requiring subtotal colectomy.? Discharged to rehab 08/01/22 but re- admitted 08/05/22 with leukocytosis and drainage from her incision, found to have intra-abdominal abscess, s/p drainage via CT guidance 08/07 and 08/11. On Surgery service, Medicine consulting Intra-abdominal abscess Managed by General surgery Continues with nausea and diffuse abdominal pain Repeat abdominal CT pending wound culture grew Clostridium perfringens, blood cultures negative on metronidazole duration as per General surgery, completed pip-ruthie x10d on 08/15.? 2 IR-guided drains in place Hypertension Continue metoprolol Hypokalemia Repleted Hypomagnesemia Repleted, continue daily oral magnesium History of migraine headaches on sumatriptan Takes subcutaneous injection, next dose 08/29/2022, her is to bring in the medication from home History of fibromyalgia Supportive care DVT prophylaxis with heparin Attending Dr. Ying Full code Medical consultation completed, will sign off Time Spent With Patient Time: Total time managing care of this patient today ____ minutes. Quality Stroke Does the patient have a stroke diagnosis?: No VTE Prior VTE?: No VTE Risk Level:: Medical - moderate - high VTE Device Contraindication: N/A - Device Ordered VTE Drug Contraindication: N/A - Med Ordered
--- NOTE | 2022-08-28 12:51 | PM.PNGS ---
Subjective Subjective Date of Service: 08/29/22 Interval history: Has some nausea Tolerated breakfast Stoma functioning well Physical Exam Vital Signs: Vital Signs: Last Vital Signs Temp 98.0 F 08/28/22 08:00 Pulse 83 08/28/22 08:00 Resp 18 08/28/22 08:00 BP 116/63 08/28/22 08:00 Pulse Ox 96 08/28/22 08:00 O2 Del Method 08/28/22 08:00 O2 Flow Rate 1.0 08/12/22 19:30 BMI result Body Mass Index 27.7 Const: General: no acute distress Resp: Effort & Inspection: normal respiratory effort Cardio: Rate: regular rate GI: Other: Stoma with good output Palpation (GI): Soft to palpation and not firm Objective Data Active Medications Acetaminophen (Acetaminophen 325 Mg Tablet) 650 mg PO Q6H PRN PRN Reason: fever, pain Calcium Carbonate (Calcium Carbonate 750 Mg Tab.Chew) 750 mg PO Q4H PRN PRN Reason: Heartburn Last Admin: 08/10/22 19:20 Dose: 750 mg Documented By: SHANTI Heparin Sodium (Porcine) (Heparin Sodium,Porcine 5,000 Unit/Ml Vial) 5,000 unit SUBCUT Q8H [facility] Last Admin: 08/28/22 07:34 Dose: 5,000 unit Documented By: SALO Hydromorphone HCl (Hydromorphone Hcl 0.5 Mg/0.5 Ml Syringe) 0.5 mg IVPUSH Q4H PRN; Protocol PRN Reason: Pain, Severe (Pain Scale 7-10) Last Admin: 08/28/22 08:58 Dose: 0.5 mg Documented By: SALO Metronidazole (Flagyl) 500 mg in 100 mls @ 100 mls/hr IV Q8H [facility] Last Infusion: 08/28/22 08:50 Dose: 0 mls/hr Documented By: SALO Promethazine HCl 12.5 mg/ (Sodium Chloride) 50.5 mls @ 202 mls/hr IV Q6H PRN PRN Reason: nausea/vomiting Last Infusion: 08/28/22 11:53 Dose: 0 mls/hr Documented By: SALO Magnesium Oxide (Magnesium Oxide 400 Mg Tablet) 400 mg PO DAILY [facility] Last Admin: 08/28/22 07:35 Dose: 400 mg Documented By: SALO Metoprolol Tartrate (Metoprolol Tartrate 25 Mg Tablet) 75 mg PO TID [facility]; Protocol Last Admin: 08/28/22 07:35 Dose: 75 mg Documented By: SALO Pt Own (Pantoprazole [Protonix] 40 Mg Tablet,Delayed Release (Dr/Ec)) 40 mg PO DAILY [facility] Last Admin: 08/28/22 07:36 Dose: 40 mg Documented By: SALO Non-Formulary Medication (Pt Own (Ajovy 225mg/ 1.5 Ml Syringe)) 225 mg SUBCUT ONCE ONE Stop: 08/29/22 18:01 Ondansetron HCl (Ondansetron Hcl 4 Mg/2 Ml Vial) 4 mg IVPUSH Q4H PRN PRN Reason: Nausea and Vomiting Last Admin: 08/28/22 08:58 Dose: 4 mg Documented By: SALO Pharmacy Consult (Consult Rx Perform Med Rec) 1 each MISCELLANE ONCE PRN PRN Reason: Consult order Scopolamine (Scopolamine 1.5 Mg Patch.Td.3) 1.5 mg EAR-BEHIND Q72H [facility] Last Admin: 08/27/22 08:31 Dose: 1.5 mg Documented By: ISSAEMA Sodium Chloride (0.9 % Sodium Chloride Flush 3 Ml Syringe) 3 ml IVFLUSH QSHIFT [facility] Last Admin: 08/28/22 07:35 Dose: 3 ml Documented By: SALO Sumatriptan Succinate (Sumatriptan Succinate 50 Mg Tablet) 50 mg PO DAILY PRN PRN Reason: Headache Last Admin: 08/24/22 21:37 Dose: 50 mg Documented By: JOSELUIS Labs CBC & Chem 7: 08/15/22 05:19 08/27/22 05:27 Procedures Date of Service Date of Service: 08/28/22 Progress Note: A&P Assessment and plan (1) Intra-abdominal abscess: Status: Acute Assessment and Plan: Repeat CT done this morning - official report yet but looks like she has residual fluid collection Drains still in place with no significant output Will review films with the radiologist to see if she will benefit from additional drains Push p.o. intake Out of bed Still with periodic nausea but clinically not obstructed - does have a long history of gastroparesis Time Spent With Patient Time: Total time managing care of this patient today ____ minutes. Quality Stroke Does the patient have a stroke diagnosis?: No VTE Prior VTE?: No VTE Risk Level:: Medical - moderate - high VTE Device Contraindication: N/A - Device Ordered VTE Drug Contraindication: N/A - Med Ordered
--- NOTE | 2022-08-28 13:21 | MHC.CM.PN ---
EMR REVIEWED AND PER MD ROUNDS, PT NOT MEDICALLY CLEARED FOR DC YET (POSSIBLE RESIDUAL FLUID COLLECTION DESPITE DRAINS) [facility] UPDATED. CM WILL CONTINUE TO FOLLOW.
--- NOTE | 2022-08-28 14:04 | MHC.CLN ---
F/U DIET=REGULAR. PREFERS ENSURE PLUS SUPPLEMENT. ENSURE BID PROVIDES 700 KCALS, 40 G PROTEIN. TOLERATING DIET. SOME NAUSEA REPORTED. FOLLOW FOR INTAKE, WEIGHT, DIET TOLERANCE. RD TO FOLLOW WEEKLY.
[2022-08-28 15:31] VITALS: BP 123/67; PULSE 100; RESP 16; TEMP 36.4; O2SAT 97
[2022-08-28 19:45] VITALS: BP 123/73; PULSE 87; RESP 17; TEMP 36.8; O2SAT 96
[2022-08-29] MEDS: 0.9 % Sodium Chloride Flush 3 ML SYRINGE IVFLUSH ×3 (00:32→16:05)
[2022-08-29] MEDS: ondansetron HCL 4 MG/2 ML VIAL IVPUSH ×6 (01:07→22:30)
[2022-08-29] MEDS: HYDROmorphone HCl 0.5 MG/0.5 ML SYRINGE IVPUSH ×6 (01:07→22:20)
[2022-08-29 04:00] VITALS: BP 133/69; PULSE 83; RESP 18; TEMP 36.6; O2SAT 97
[2022-08-29 07:43] VITALS: BP 132/69; PULSE 93; RESP 17; TEMP 36.9; O2SAT 97
[2022-08-29] MEDS: Heparin Sodium,Porcine 5,000 UNIT/ML VIAL 5000 UNIT SUBCUT ×3 (08:01→22:21)
[2022-08-29] MEDS: Metoprolol Tartrate 25 MG TABLET 75 MG PO ×3 (08:01→22:20)
[2022-08-29] MEDS: Magnesium Oxide 400 MG TABLET PO (08:01)
[2022-08-29] MEDS: metroNIDAZOLE/NS 500 MG/100 ML PIGGYBACK 100 MG IV ×2 (08:02→16:05)
--- NOTE | 2022-08-29 12:57 | P.PNGS_ITS ---
Subjective Subjective Date of Service: 08/30/22 Interval history: still gets periods of nausea says she ate breakfast this morning denies abd pain says she vomitted yesterday stoma funcitioning Physical Exam Vital Signs: Vital Signs: Last Vital Signs Temp 98.4 F 08/29/22 07:43 Pulse 93 08/29/22 07:43 Resp 17 08/29/22 07:43 BP 132/69 08/29/22 07:43 Pulse Ox 97 08/29/22 07:43 O2 Del Method 08/29/22 07:43 O2 Flow Rate 1.0 08/12/22 19:30 BMI result Body Mass Index 27.7 Const: General: no acute distress Resp: Effort & Inspection: normal respiratory effort Cardio: Rate: regular rate GI: Other: soft nondistended, stoma with good output, drains x 2 very scanty Objective Data Active Medications Acetaminophen (Acetaminophen 325 Mg Tablet) 650 mg PO Q6H PRN PRN Reason: fever, pain Calcium Carbonate (Calcium Carbonate 750 Mg Tab.Chew) 750 mg PO Q4H PRN PRN Reason: Heartburn Last Admin: 08/10/22 19:20 Dose: 750 mg Documented By: SHANTI Heparin Sodium (Porcine) (Heparin Sodium,Porcine 5,000 Unit/Ml Vial) 5,000 unit SUBCUT Q8H [facility] Last Admin: 08/29/22 08:01 Dose: 5,000 unit Documented By: SALO Hydromorphone HCl (Hydromorphone Hcl 0.5 Mg/0.5 Ml Syringe) 0.5 mg IVPUSH Q4H PRN; Protocol PRN Reason: Pain, Severe (Pain Scale 7-10) Last Admin: 08/29/22 09:14 Dose: 0.5 mg Documented By: SALO Metronidazole (Flagyl) 500 mg in 100 mls @ 100 mls/hr IV Q8H [facility] Last Infusion: 08/29/22 09:11 Dose: 0 mls/hr Documented By: SALO Promethazine HCl 12.5 mg/ (Sodium Chloride) 50.5 mls @ 202 mls/hr IV Q6H PRN PRN Reason: nausea/vomiting Last Infusion: 08/28/22 11:53 Dose: 0 mls/hr Documented By: SALO Magnesium Oxide (Magnesium Oxide 400 Mg Tablet) 400 mg PO DAILY [facility] Last Admin: 08/29/22 08:01 Dose: 400 mg Documented By: SALO Metoprolol Tartrate (Metoprolol Tartrate 25 Mg Tablet) 75 mg PO TID [facility]; Barron col Last Admin: 08/29/22 08:01 Dose: 75 mg Documented By: SALO Pt Own (Pantoprazole [Protonix] 40 Mg Tablet,Delayed Release (Dr/Ec)) 40 mg PO DAILY [facility] Last Admin: 08/29/22 08:02 Dose: 40 mg Documented By: SALO Non-Formulary Medication (Pt Own (Ajovy 225mg/ 1.5 Ml Syringe)) 225 mg SUBCUT ONCE ONE Stop: 08/29/22 18:01 Ondansetron HCl (Ondansetron Hcl 4 Mg/2 Ml Vial) 4 mg IVPUSH Q4H PRN PRN Reason: Nausea and Vomiting Last Admin: 08/29/22 09:13 Dose: 4 mg Documented By: SALO Pharmacy Consult (Consult Rx Perform Med Rec) 1 each MISCELLANE ONCE PRN PRN Reason: Consult order Scopolamine (Scopolamine 1.5 Mg Patch.Td.3) 1.5 mg EAR-BEHIND Q72H [facility] Last Admin: 08/27/22 08:31 Dose: 1.5 mg Documented By: COTEMA Sodium Chloride (0.9 % Sodium Chloride Flush 3 Ml Syringe) 3 ml IVFLUSH QSHIFT [facility] Last Admin: 08/29/22 08:02 Dose: 3 ml Documented By: SALO Sumatriptan Succinate (Sumatriptan Succinate 50 Mg Tablet) 50 mg PO DAILY PRN PRN Reason: Headache Last Admin: 08/24/22 21:37 Dose: 50 mg Documented By: JOSELUIS Labs CBC & Chem 7: 08/15/22 05:19 08/27/22 05:27 Procedures Date of Service Date of Service: 08/29/22 Progress Note: A&P Assessment and plan (1) Intra-abdominal abscess: Status: Acute Assessment and Plan: still with periodic nausea she does have a hx of gastroparesis CT reviewed with radiologist - still with intraabdl collection, smaller, not osbtructed repeat labs tomorrow push to get out of bed no new issues otherwise family updated Time Spent With Patient Time: Total time managing care of this patient today ____ minutes. Quality Stroke Does the patient have a stroke diagnosis?: No VTE Prior VTE?: No VTE Risk Level:: Medical - moderate - high VTE Device Contraindication: N/A - Device Ordered VTE Drug Contraindication: N/A - Med Ordered
--- NOTE | 2022-08-29 15:29 | PM.EVENT ---
Event Note Date of Service: 08/31/22 Event Note: seen on afternoon rounds she says she feels much better able to tolerated food today says she got out of bed abd soft control periodic nausea Time Spent With Patient Time: Total time managing care of this patient today ____ minutes.
[2022-08-29 15:56] VITALS: BP 117/58; PULSE 82; RESP 20; TEMP 36.8; O2SAT 97
[2022-08-29 22:19] VITALS: BP 133/73; PULSE 98
[2022-08-30] MEDS: metroNIDAZOLE/NS 500 MG/100 ML PIGGYBACK 100 MG IV ×3 (00:09→15:38)
[2022-08-30] MEDS: 0.9 % Sodium Chloride Flush 3 ML SYRINGE IVFLUSH ×4 (01:26→20:43)
[2022-08-30] MEDS: ondansetron HCL 4 MG/2 ML VIAL IVPUSH ×5 (02:55→21:00)
[2022-08-30] MEDS: HYDROmorphone HCl 0.5 MG/0.5 ML SYRINGE IVPUSH ×5 (02:55→21:00)
[2022-08-30 03:35] VITALS: BP 129/68; PULSE 84; RESP 18; TEMP 36.5; O2SAT 98
[2022-08-30 08:00] VITALS: BP 133/66; PULSE 95; RESP 18; TEMP 36.4; O2SAT 97
[2022-08-30] MEDS: Heparin Sodium,Porcine 5,000 UNIT/ML VIAL 5000 UNIT SUBCUT ×2 (08:23→15:38)
[2022-08-30] MEDS: Scopolamine 1.5 MG PATCH.TD.3 EAR-BEHIND (08:23)
[2022-08-30] MEDS: Metoprolol Tartrate 25 MG TABLET 75 MG PO ×3 (08:24→20:42)
[2022-08-30] MEDS: Magnesium Oxide 400 MG TABLET PO (08:25)
--- NOTE | 2022-08-30 09:53 | P.PNGS_ITS ---
Subjective Subjective Date of Service: 08/30/22 Interval history: Says she had good oral intake yesterday Nausea again this morning Stoma functioning well Physical Exam Vital Signs: Vital Signs: Last Vital Signs Temp 97.5 F 08/30/22 08:00 Pulse 95 08/30/22 08:00 Resp 18 08/30/22 08:00 BP 133/66 08/30/22 08:00 Pulse Ox 97 08/30/22 08:00 O2 Del Method 08/30/22 08:00 O2 Flow Rate 1.0 08/12/22 19:30 BMI result Body Mass Index 27.7 Const: General: no acute distress Resp: Effort & Inspection: normal respiratory effort Cardio: Rhythm: regular rhythm GI: Other: Soft, no guarding rebound, stoma functioning well, midline incision well healing Objective Data Active Medications Acetaminophen (Acetaminophen 325 Mg Tablet) 650 mg PO Q6H PRN PRN Reason: fever, pain Calcium Carbonate (Calcium Carbonate 750 Mg Tab.Chew) 750 mg PO Q4H PRN PRN Reason: Heartburn Last Admin: 08/10/22 19:20 Dose: 750 mg Documented By: SHANTI Heparin Sodium (Porcine) (Heparin Sodium,Porcine 5,000 Unit/Ml Vial) 5,000 unit SUBCUT Q8H [facility] Last Admin: 08/30/22 08:23 Dose: 5,000 unit Documented By: KAMILA Hydromorphone HCl (Hydromorphone Hcl 0.5 Mg/0.5 Ml Syringe) 0.5 mg IVPUSH Q4H PRN; Protocol PRN Reason: Pain, Severe (Pain Scale 7-10) Last Admin: 08/30/22 08:22 Dose: 0.5 mg Documented By: KAMILA Metronidazole (Flagyl) 500 mg in 100 mls @ 100 mls/hr IV Q8H [facility] Last Admin: 08/30/22 08:24 Dose: 100 mls/hr Documented By: KAMILA Promethazine HCl 12.5 mg/ (Sodium Chloride) 50.5 mls @ 202 mls/hr IV Q6H PRN PRN Reason: nausea/vomiting Last Infusion: 08/30/22 05:33 Dose: 0 mls/hr Documented By: NUPUR Magnesium Oxide (Magnesium Oxide 400 Mg Tablet) 400 mg PO DAILY [facility] Last Admin: 08/30/22 08:25 Dose: 400 mg Documented By: KAMILA Metoprolol Tartrate (Metoprolol Tartrate 25 Mg Tablet) 75 mg PO TID [facility]; Protocol Last Admin: 08/30/22 08:24 Dose: 75 mg Documented By: KAMILA Pt Own (Pantoprazole [Protonix] 40 Mg Tablet,Delayed Release (Dr/Ec)) 40 mg PO DAILY [facility] Last Admin: 08/30/22 08:25 Dose: 40 mg Documented By: KAMILA Ondansetron HCl (Ondansetron Hcl 4 Mg/2 Ml Vial) 4 mg IVPUSH Q4H PRN PRN Reason: Nausea and Vomiting Last Admin: 08/30/22 08:22 Dose: 4 mg Documented By: KAMILA Pharmacy Consult (Consult Rx Perform Med Rec) 1 each MISCELLANE ONCE PRN PRN Reason: Consult order Scopolamine (Scopolamine 1.5 Mg Patch.Td.3) 1.5 mg EAR-BEHIND Q72H COUNT [facility]CLUDES [facility] Last Admin: 08/30/22 08:23 Dose: 1.5 mg Documented By: KAMILA Sodium Chloride (0.9 % Sodium Chloride Flush 3 Ml Syringe) 3 ml IVFLUSH QSHIFT COUNT [facility]CLUDES [facility] Last Admin: 08/30/22 08:23 Dose: 3 ml Documented By: KAMILA Sumatriptan Succinate (Sumatriptan Succinate 50 Mg Tablet) 50 mg PO DAILY PRN PRN Reason: Headache Last Admin: 08/24/22 21:37 Dose: 50 mg Documented By: JOSELUIS Labs CBC & Chem 7: 08/15/22 05:19 08/27/22 05:27 Procedures Date of Service Date of Service: 08/30/22 Progress Note: A&P Assessment and plan (1) Intra-abdominal abscess: Status: Acute Assessment and Plan: Still with periodic nausea Not obstructed on CT scan Reviewed films with Dr. Nava - familia with residual intra-abdominal collection Will schedule for another drain To other NOHEMI drains in place with scanty output otherwise Control nausea Push to get out of bed Time Spent With Patient Time: Total time managing care of this patient today ____ minutes. Quality Stroke Does the patient have a stroke diagnosis?: No VTE Prior VTE?: No VTE Risk Level:: Medical - moderate - high VTE Device Contraindication: N/A - Device Ordered VTE Drug Contraindication: N/A - Med Ordered
[2022-08-30 15:38] VITALS: BP 127/60; PULSE 92; RESP 18; TEMP 36.8; O2SAT 96
[2022-08-30 19:43] VITALS: BP 115/58; PULSE 89; RESP 18; TEMP 37.2; O2SAT 95
[2022-08-31] VITALS (7 sets, daily range): BP systolic 108–174; BP diastolic 52–89; PULSE 81–104; RESP 17–20; TEMP 36.7–37.1; O2SAT 96–97
[2022-08-31] MEDS: metroNIDAZOLE/NS 500 MG/100 ML PIGGYBACK 100 MG IV ×3 (00:02→16:27)
[2022-08-31] MEDS: Heparin Sodium,Porcine 5,000 UNIT/ML VIAL 5000 UNIT SUBCUT ×4 (00:02→21:57)
[2022-08-31] MEDS: HYDROmorphone HCl 0.5 MG/0.5 ML SYRINGE IVPUSH ×6 (01:11→21:57)
[2022-08-31] MEDS: ondansetron HCL 4 MG/2 ML VIAL IVPUSH ×6 (01:11→21:57)
--- NOTE | 2022-08-31 04:08 | PC.NURSE ---
Pt has been consistently asking for Dilaudid and Zofran every 4hrs, sleeping mostly after meds. Ileostomy bag was noted to be leaking,appliance changed, mid abd incision dressing was soaked with tannish disc, dressing changed.
--- NOTE | 2022-08-31 08:14 | P.PNGS_ITS ---
Subjective Subjective Date of Service: 09/01/22 Interval history: did well with PT yesterday - walked down hallway! says she had good oral intake yesterday still gets periodically nauseous stoma continues to function well Physical Exam Vital Signs: Vital Signs: Last Vital Signs Temp 98.4 F 08/31/22 07:51 Pulse 92 08/31/22 07:51 Resp 17 08/31/22 07:51 BP 118/65 08/31/22 07:51 Pulse Ox 96 08/31/22 07:51 O2 Del Method 08/31/22 07:51 O2 Flow Rate 1.0 08/12/22 19:30 BMI result Body Mass Index 27.7 Const: General: no acute distress Resp: Effort & Inspection: normal respiratory effort Cardio: Rate: regular rate GI: Other: stoma functioning Palpation (GI): Soft to palpation, not firm and no guarding Objective Data Active Medications Acetaminophen (Acetaminophen 325 Mg Tablet) 650 mg PO Q6H PRN PRN Reason: fever, pain Calcium Carbonate (Calcium Carbonate 750 Mg Tab.Chew) 750 mg PO Q4H PRN PRN Reason: Heartburn Last Admin: 08/10/22 19:20 Dose: 750 mg Documented By: SHANTI Heparin Sodium (Porcine) (Heparin Sodium,Porcine 5,000 Unit/Ml Vial) 5,000 unit SUBCUT Q8H [facility] Last Admin: 08/31/22 06:29 Dose: 5,000 unit Documented By: ARLENE Hydromorphone HCl (Hydromorphone Hcl 0.5 Mg/0.5 Ml Syringe) 0.5 mg IVPUSH Q4H PRN; Protocol PRN Reason: Pain, Severe (Pain Scale 7-10) Last Admin: 08/31/22 05:17 Dose: 0.5 mg Documented By: ARLENE Metronidazole (Flagyl) 500 mg in 100 mls @ 100 mls/hr IV Q8H [facility] Last Infusion: 08/31/22 01:11 Dose: 0 mls/hr Documented By: ARLENE Promethazine HCl 12.5 mg/ (Sodium Chloride) 50.5 mls @ 202 mls/hr IV Q6H PRN PRN Reason: nausea/vomiting Last Infusion: 08/30/22 16:27 Dose: 0 mls/hr Documented By: KAMILA Magnesium Oxide (Magnesium Oxide 400 Mg Tablet) 400 mg PO DAILY [facility] Last Admin: 08/30/22 08:25 Dose: 400 mg Documented By: KAMILA Metoprolol Tartrate (Metoprolol Tartrate 25 Mg Tablet) 75 mg PO TID [facility]; Protocol Last Admin: 08/30/22 20:42 Dose: 75 mg Documented By: ARLENE Comments: XP=[id number] H 89 Pt Own (Pantoprazole [Protonix] 40 Mg Tablet,Delayed Release (Dr/Ec)) 40 mg PO DAILY [facility] Last Admin: 08/30/22 08:25 Dose: 40 mg Documented By: KAMILA Ondansetron HCl (Ondansetron Hcl 4 Mg/2 Ml Vial) 4 mg IVPUSH Q4H PRN PRN Reason: Nausea and Vomiting Last Admin: 08/31/22 05:17 Dose: 4 mg Documented By: ARLENE Pharmacy Consult (Consult Rx Perform Med Rec) 1 each MISCELLANE ONCE PRN PRN Reason: Consult order Scopolamine (Scopolamine 1.5 Mg Patch.Td.3) 1.5 mg EAR-BEHIND Q72H [facility] Last Admin: 08/30/22 08:23 Dose: 1.5 mg Documented By: KAMILA Sodium Chloride (0.9 % Sodium Chloride Flush 3 Ml Syringe) 3 ml IVFLUSH QSHIFT [facility] Last Admin: 08/30/22 20:43 Dose: 3 ml Documented By: ARLENE Sumatriptan Succinate (Sumatriptan Succinate 50 Mg Tablet) 50 mg PO DAILY PRN PRN Reason: Headache Last Admin: 08/24/22 21:37 Dose: 50 mg Documented By: JOSELUIS Labs CBC & Chem 7: 08/15/22 05:19 08/27/22 05:27 Procedures Date of Service Date of Service: 08/31/22 Progress Note: A&P Assessment and plan (1) Intra-abdominal abscess: Status: Acute Assessment and Plan: repeat CT shows fkuid collection, altough less than before reviewed with Dr Garza - her will place additional drain today looks stable main issue now is periodic nausea - she has hx of gastroparesis intraabdl collection may be contributory to nausea? stoma functioning, clinically not obstructed continue PT, push PO intake Time Spent With Patient Time: Total time managing care of this patient today ____ minutes. Quality Stroke Does the patient have a stroke diagnosis?: No VTE Prior VTE?: No VTE Risk Level:: Medical - moderate - high VTE Device Contraindication: N/A - Device Ordered VTE Drug Contraindication: N/A - Med Ordered
[2022-08-31] MEDS: Metoprolol Tartrate 25 MG TABLET 75 MG PO ×3 (08:29→21:58)
[2022-08-31] MEDS: 0.9 % Sodium Chloride Flush 3 ML SYRINGE IVFLUSH ×3 (08:30→21:58)
[2022-08-31] MEDS: Magnesium Oxide 400 MG TABLET PO (08:30)
[2022-08-31] MEDS: Dextrose 5 % and 0.9 % NaCl 1,000 ML 80 ML IVCONT (09:51)
--- NOTE | 2022-08-31 16:53 | PM.EVENT ---
Event Note Date of Service: 08/31/22 Event Note: CT drain done by Dr. Rodrigues earlier - no significant drainable fliuid with needle no additional drain placed patient looks well abdomen soft continue current care push p.o. intake encourage PT, increased activity Time Spent With Patient Time: Total time managing care of this patient today ____ minutes.
[2022-09-01] MEDS: HYDROmorphone HCl 0.5 MG/0.5 ML SYRINGE IVPUSH ×5 (02:49→22:04)
[2022-09-01] MEDS: ondansetron HCL 4 MG/2 ML VIAL IVPUSH ×5 (02:49→22:04)
[2022-09-01 03:17] VITALS: BP 111/54; PULSE 78; RESP 16; TEMP 36.7; O2SAT 97
[2022-09-01] MEDS: Heparin Sodium,Porcine 5,000 UNIT/ML VIAL 5000 UNIT SUBCUT ×3 (06:16→22:04)
[2022-09-01 08:00] VITALS: BP 120/66; PULSE 96; RESP 18; TEMP 36.2; O2SAT 92
[2022-09-01 08:35] VITALS: RESP 18
[2022-09-01] MEDS: Metoprolol Tartrate 25 MG TABLET 75 MG PO ×3 (08:40→21:49)
[2022-09-01] MEDS: Magnesium Oxide 400 MG TABLET PO (08:40)
[2022-09-01] MEDS: 0.9 % Sodium Chloride Flush 3 ML SYRINGE IVFLUSH ×3 (08:42→22:05)
--- NOTE | 2022-09-01 11:27 | PM.PNGS ---
Subjective Subjective Date of Service: 09/01/22 Interval history: complains of episodes of nausea CT drain with needle done yesterday - no additional drain placed stoma with good function Physical Exam Vital Signs: Vital Signs: Last Vital Signs Temp 97.2 F 09/01/22 08:00 Pulse 96 09/01/22 08:00 Resp 18 09/01/22 08:35 BP 120/66 09/01/22 08:00 Pulse Ox 92 09/01/22 08:00 O2 Del Method 09/01/22 08:00 O2 Flow Rate 1.0 08/12/22 19:30 BMI result Body Mass Index 27.7 Const: General: no acute distress Resp: Effort & Inspection: normal respiratory effort Cardio: Rhythm: regular rhythm GI: Other: soft, [address] - thick purulent output, but scanty; also with purulent drainage from one area of midline incision Objective Data Active Medications Acetaminophen (Acetaminophen 325 Mg Tablet) 650 mg PO Q6H PRN PRN Reason: fever, pain Calcium Carbonate (Calcium Carbonate 750 Mg Tab.Chew) 750 mg PO Q4H PRN PRN Reason: Heartburn Last Admin: 08/10/22 19:20 Dose: 750 mg Documented By: SHANTI Heparin Sodium (Porcine) (Heparin Sodium,Porcine 5,000 Unit/Ml Vial) 5,000 unit SUBCUT Q8H [facility] Last Admin: 09/01/22 06:16 Dose: 5,000 unit Documented By: ARLENE Hydromorphone HCl (Hydromorphone Hcl 0.5 Mg/0.5 Ml Syringe) 0.5 mg IVPUSH Q4H PRN; Protocol PRN Reason: Pain, Severe (Pain Scale 7-10) Last Admin: 09/01/22 08:35 Dose: 0.5 mg Documented By: FOREIGN Promethazine HCl 12.5 mg/ (Sodium Chloride) 50.5 mls @ 202 mls/hr IV Q6H PRN PRN Reason: nausea/vomiting Last Infusion: 08/31/22 16:27 Dose: 0 mls/hr Documented By: MOI Dextrose/Sodium Chloride (D5ns) 1,000 mls @ 60 mls/hr IVCONT .[id number] [facility] Magnesium Oxide (Magnesium Oxide 400 Mg Tablet) 400 mg PO DAILY [facility] Last Admin: 09/01/22 08:40 Dose: 400 mg Documented By: FOREIGN Metoprolol Tartrate (Metoprolol Tartrate 25 Mg Tablet) 75 mg PO TID [facility]; Protocol Last Admin: 09/01/22 08:40 Dose: 75 mg Documented By: FOREIGN Pt Own (Pantoprazole [Protonix] 40 Mg Tablet,Delayed Release (Dr/Ec)) 40 mg PO DAILY [facility] Last Admin: 09/01/22 08:45 Dose: 40 mg Documented By: FOREIGN Ondansetron HCl (Ondansetron Hcl 4 Mg/2 Ml Vial) 4 mg IVPUSH Q4H PRN PRN Reason: Nausea and Vomiting Last Admin: 09/01/22 08:35 Dose: 4 mg Documented By: FOREIGN Pharmacy Consult (Consult Rx Perform Med Rec) 1 each MISCELLANE ONCE PRN PRN Reason: Consult order Scopolamine (Scopolamine 1.5 Mg Patch.Td.3) 1.5 mg EAR-BEHIND Q72H [facility] Last Admin: 08/30/22 08:23 Dose: 1.5 mg Documented By: KAMILA Sodium Chloride (0.9 % Sodium Chloride Flush 3 Ml Syringe) 3 ml IVFLUSH QSHIFT [facility] Last Admin: 09/01/22 08:42 Dose: 3 ml Documented By: FOREIGN Sumatriptan Succinate (Sumatriptan Succinate 50 Mg Tablet) 50 mg PO DAILY PRN PRN Reason: Headache Last Admin: 08/24/22 21:37 Dose: 50 mg Documented By: JOSELUIS Labs CBC & Chem 7: 08/15/22 05:19 08/27/22 05:27 Procedures Date of Service Date of Service: 09/01/22 Progress Note: A&P Assessment and plan (1) Intra-abdominal abscess: Status: Acute Assessment and Plan: main issues now are deconditioning and frequent nausea stoma with good output clinically not obstructed will start on some IVF for now as oral intake is inconsistent check lytes on Zofran and Phenergan push PO intake PT, OT stoma care Time Spent With Patient Time: Total time managing care of this patient today ____ minutes. Quality Stroke Does the patient have a stroke diagnosis?: No VTE Prior VTE?: No VTE Risk Level:: Medical - moderate - high VTE Device Contraindication: N/A - Device Ordered VTE Drug Contraindication: N/A - Med Ordered
[2022-09-01] MEDS: Dextrose 5 % and 0.9 % NaCl 1,000 ML 60 ML IVCONT (11:31)
[2022-09-01 12:44] LABS: Anion Gap 13 (12-20); Blood Urea Nitrogen 7 mg/dL (9-16); Calcium 9.5 mg/dL (8.4-10.2); Carbon Dioxide 28 mmol/L (22-29); Chloride 101 mmol/L (96-108); Estimated Glomerular Filt Rate > 60; Glucose Random 123 mg/dL (60-115); Potassium 3.8 mmol/L (3.3-5.1); Sodium 138 mmol/L (135-145)
--- NOTE | 2022-09-01 13:01 | MHC.CLN ---
F/U DIET=REGULAR. PREFERS ENSURE PLUS SUPPLEMENT. ENSURE BID PROVIDES 700 KCALS, 40 G PROTEIN. PERIODS OF NAUSEA NOTED. INTAKE VARIABLE WITH MOST MEALS 50-75%. FOLLOW FOR INTAKE, WEIGHT, DIET TOLERANCE.
[2022-09-01 13:06] VITALS: RESP 20
--- NOTE | 2022-09-01 14:54 | MHC.CM.PN ---
EMR REVIEWED. IVF CONTINUE FOR INCONSISTENT PO INTAKE, CONTINUE WITH NAUSEA. CM WILL CONTINUE TO MONITOR. [facility] IS FOLLOWING
[2022-09-01 15:32] VITALS: BP 123/64; PULSE 82; RESP 18; TEMP 37.1; O2SAT 95
[2022-09-01 20:00] VITALS: BP 113/60; PULSE 77; RESP 18; TEMP 36.7; O2SAT 97
[2022-09-02] MEDS: ondansetron HCL 4 MG/2 ML VIAL IVPUSH ×6 (01:57→22:30)
[2022-09-02] MEDS: HYDROmorphone HCl 0.5 MG/0.5 ML SYRINGE IVPUSH ×6 (01:58→22:31)
[2022-09-02] MEDS: Dextrose 5 % and 0.9 % NaCl 1,000 ML 60 ML IVCONT ×2 (02:08→18:19)
[2022-09-02 04:00] VITALS: BP 143/72; PULSE 85; RESP 18; TEMP 36.6; O2SAT 97
[2022-09-02] MEDS: Heparin Sodium,Porcine 5,000 UNIT/ML VIAL 5000 UNIT SUBCUT ×3 (05:59→22:30)
[2022-09-02 08:00] VITALS: BP 129/73; PULSE 98; RESP 18; TEMP 36.3; O2SAT 96
[2022-09-02] MEDS: Magnesium Oxide 400 MG TABLET PO (09:18)
[2022-09-02] MEDS: Scopolamine 1.5 MG PATCH.TD.3 EAR-BEHIND (09:18)
[2022-09-02] MEDS: Metoprolol Tartrate 25 MG TABLET 75 MG PO ×3 (09:18→20:35)
--- NOTE | 2022-09-02 09:43 | PM.PNGS ---
Subjective Subjective Date of Service: 09/02/22 Patient reports: no new complaints and still having pain Interval history: The patient is seen in coverage. She continues to report left-sided pain and nursing staff tells me she is taking Dilaudid fairly regularly. She is also having ongoing nausea but no vomiting at this time. Patient is getting both Zofran and Phenergan for her nausea. She otherwise denies chest pain, difficulty breathing, shortness of breath Physical Exam Vital Signs: Vital Signs: Last Vital Signs Temp 97.4 F 09/02/22 08:00 Pulse 98 09/02/22 08:00 Resp 18 09/02/22 08:00 BP 129/73 09/02/22 08:00 Pulse Ox 96 09/02/22 08:00 O2 Del Method 09/02/22 08:00 O2 Flow Rate 1.0 08/12/22 19:30 BMI result Body Mass Index 27.7 On exam she is in good spirits, nontoxic and communicative Her abdominal drain is putting out purulence. Objective Data Active Medications Acetaminophen (Acetaminophen 325 Mg Tablet) 650 mg PO Q6H PRN PRN Reason: fever, pain Calcium Carbonate (Calcium Carbonate 750 Mg Tab.Chew) 750 mg PO Q4H PRN PRN Reason: Heartburn Last Admin: 08/10/22 19:20 Dose: 750 mg Documented By: SHANTI Heparin Sodium (Porcine) (Heparin Sodium,Porcine 5,000 Unit/Ml Vial) 5,000 unit SUBCUT Q8H [facility] Last Admin: 09/02/22 05:59 Dose: 5,000 unit Documented By: DAVID Hydromorphone HCl (Hydromorphone Hcl 0.5 Mg/0.5 Ml Syringe) 0.5 mg IVPUSH Q4H PRN; Protocol PRN Reason: Pain, Severe (Pain Scale 7-10) Last Admin: 09/02/22 05:59 Dose: 0.5 mg Documented By: DAVID Promethazine HCl 12.5 mg/ (Sodium Chloride) 50.5 mls @ 202 mls/hr IV Q6H PRN PRN Reason: nausea/vomiting Last Infusion: 09/01/22 13:14 Dose: 0 mls/hr Documented By: FROEIGN Dextrose/Sodium Chloride (D5ns) 1,000 mls @ 60 mls/hr IVCONT .[id number] [facility] Last Admin: 09/02/22 02:08 Dose: 60 mls/hr Documented By: DAVID Magnesium Oxide (Magnesium Oxide 400 Mg Tablet) 400 mg PO DAILY [facility] Last Admin: 09/02/22 09:18 Dose: 400 mg Documented By: KAMILA Metoprolol Tartrate (Metoprolol Tartrate 25 Mg Tablet) 75 mg PO TID [facility]; Protocol Last Admin: 09/02/22 09:18 Dose: 75 mg Documented By: KAMILA Pt Own (Pantoprazole [Protonix] 40 Mg Tablet,Delayed Release (Dr/Ec)) 40 mg PO DAILY [facility] Last Admin: 09/02/22 09:20 Dose: 40 mg Documented By: KAMILA Ondansetron HCl (Ondansetron Hcl 4 Mg/2 Ml Vial) 4 mg IVPUSH Q4H PRN PRN Reason: Nausea and Vomiting Last Admin: 09/02/22 05:59 Dose: 4 mg Documented By: DAVID Pharmacy Consult (Consult Rx Perform Med Rec) 1 each MISCELLANE ONCE PRN PRN Reason: Consult order Scopolamine (Scopolamine 1.5 Mg Patch.Td.3) 1.5 mg EAR-BEHIND Q72H [facility] Last Admin: 09/02/22 09:18 Dose: 1.5 mg Documented By: KAMILA Sodium Chloride (0.9 % Sodium Chloride Flush 3 Ml Syringe) 3 ml IVFLUSH QSHIFT [facility] Last Admin: 09/02/22 09:25 Dose: Not Given Documented By: KAMILA Non-Admin Reason: IV Running Sumatriptan Succinate (Sumatriptan Succinate 50 Mg Tablet) 50 mg PO DAILY PRN PRN Reason: Headache Last Admin: 08/24/22 21:37 Dose: 50 mg Documented By: JOSELUIS Labs CBC & Chem 7: 08/15/22 05:19 09/01/22 12:11 Labs: Laboratory Results - last 24 hr 09/01/22 12:11 Anion Gap 13 Estim Creat Clear Calc 93.0 Estimated GFR > 60 Random Glucose 123 H Calcium 9.5 Procedures Date of Service Date of Service: 09/02/22 Progress Note: A&P Assessment and plan (1) S/P colectomy: Status: Acute (2) Intra-abdominal abscess: Status: Acute (3) Status post colostomy: Status: Acute Plan Continue present manage. While the patient is having ongoing nausea and narcotic need, she appears stable at this time and not worsening. Time Spent With Patient Time: Total time managing care of this patient today ____ minutes. Quality Stroke Does the patient have a stroke diagnosis?: No VTE Prior VTE?: No VTE Risk Level:: Medical - moderate - high VTE Device Contraindication: N/A - Device Ordered VTE Drug Contraindication: N/A - Med Ordered
[2022-09-02] MEDS: 0.9 % Sodium Chloride Flush 3 ML SYRINGE IVFLUSH ×2 (15:51→20:35)
[2022-09-02 16:13] VITALS: BP 147/70; PULSE 92; RESP 20; TEMP 36.3; O2SAT 98
[2022-09-02 20:48] VITALS: PULSE 87; RESP 20; TEMP 36.6; O2SAT 95
[2022-09-03] MEDS: ondansetron HCL 4 MG/2 ML VIAL IVPUSH ×6 (02:43→23:40)
[2022-09-03] MEDS: HYDROmorphone HCl 0.5 MG/0.5 ML SYRINGE IVPUSH ×6 (02:43→23:40)
[2022-09-03 04:00] VITALS: BP 128/70; PULSE 86; RESP 17; TEMP 36.6; O2SAT 96
[2022-09-03] MEDS: Heparin Sodium,Porcine 5,000 UNIT/ML VIAL 5000 UNIT SUBCUT ×3 (06:29→23:40)
[2022-09-03 08:00] VITALS: BP 131/68; PULSE 92; RESP 16; TEMP 37.2; O2SAT 97
[2022-09-03] MEDS: Metoprolol Tartrate 25 MG TABLET 75 MG PO ×3 (08:59→19:34)
[2022-09-03] MEDS: Magnesium Oxide 400 MG TABLET PO (09:00)
--- NOTE | 2022-09-03 11:37 | PM.PNGS ---
Subjective Subjective Date of Service: 09/03/22 Patient reports: no new complaints and feels better Interval history: The patient reports that she is doing better today. She had 2 visitors and her only request was that her IV fluid be discontinued. She reports that she is overall doing well, has no complaints and her pain is improved. Physical Exam Vital Signs: Vital Signs: Last Vital Signs Temp 98.9 F 09/03/22 08:00 Pulse 92 09/03/22 08:00 Resp 16 09/03/22 08:00 BP 131/68 09/03/22 08:00 Pulse Ox 97 09/03/22 08:00 O2 Del Method 09/03/22 08:00 O2 Flow Rate 1.0 08/12/22 19:30 BMI result Body Mass Index 27.7 Patient is nontoxic Patient requested exam be deferred secondary to visitors. Objective Data Active Medications Acetaminophen (Acetaminophen 325 Mg Tablet) 650 mg PO Q6H PRN PRN Reason: fever, pain Calcium Carbonate (Calcium Carbonate 750 Mg Tab.Chew) 750 mg PO Q4H PRN PRN Reason: Heartburn Last Admin: 08/10/22 19:20 Dose: 750 mg Documented By: SHANTI Heparin Sodium (Porcine) (Heparin Sodium,Porcine 5,000 Unit/Ml Vial) 5,000 unit SUBCUT Q8H [facility] Last Admin: 09/03/22 06:29 Dose: 5,000 unit Documented By: ABIEL Hydromorphone HCl (Hydromorphone Hcl 0.5 Mg/0.5 Ml Syringe) 0.5 mg IVPUSH Q4H PRN; Protocol PRN Reason: Pain, Severe (Pain Scale 7-10) Last Admin: 09/03/22 10:54 Dose: 0.5 mg Documented By: KAMILA Promethazine HCl 12.5 mg/ (Sodium Chloride) 50.5 mls @ 202 mls/hr IV Q6H PRN PRN Reason: nausea/vomiting Last Infusion: 09/03/22 05:25 Dose: 0 mls/hr Documented By: ABIEL Magnesium Oxide (Magnesium Oxide 400 Mg Tablet) 400 mg PO DAILY [facility] Last Admin: 09/03/22 09:00 Dose: 400 mg Documented By: KAMILA Metoprolol Tartrate (Metoprolol Tartrate 25 Mg Tablet) 75 mg PO TID [facility]; Protocol Last Admin: 09/03/22 08:59 Dose: 75 mg Documented By: KAMILA Pt Own (Pantoprazole [Protonix] 40 Mg Tablet,Delayed Release (Dr/Ec)) 40 mg PO DAILY [facility] Last Admin: 09/03/22 09:00 Dose: 40 mg Documented By: KAMILA Ondansetron HCl (Ondansetron Hcl 4 Mg/2 Ml Vial) 4 mg IVPUSH Q4H PRN PRN Reason: Nausea and Vomiting Last Admin: 09/03/22 10:54 Dose: 4 mg Documented By: KAMILA Pharmacy Consult (Consult Rx Perform Med Rec) 1 each MISCELLANE ONCE PRN PRN Reason: Consult order Scopolamine (Scopolamine 1.5 Mg Patch.Td.3) 1.5 mg EAR-BEHIND Q72H [facility] Last Admin: 09/02/22 09:18 Dose: 1.5 mg Documented By: KAMILA Sodium Chloride (0.9 % Sodium Chloride Flush 3 Ml Syringe) 3 ml IVFLUSH QSHIFT [facility] Last Admin: 09/03/22 09:02 Dose: Not Given Documented By: KAMILA Non-Admin Reason: IV Running Sumatriptan Succinate (Sumatriptan Succinate 50 Mg Tablet) 50 mg PO DAILY PRN PRN Reason: Headache Last Admin: 08/24/22 21:37 Dose: 50 mg Documented By: JOSELUIS Labs CBC & Chem 7: 08/15/22 05:19 09/01/22 12:11 Procedures Date of Service Date of Service: 09/03/22 Progress Note: A&P Assessment and plan (1) S/P colectomy: Status: Acute (2) Intra-abdominal abscess: Status: Acute Plan Please take down any IV fluid remaining. There is no order in the computer Continue present management. Time Spent With Patient Time: Total time managing care of this patient today ____ minutes. Quality Stroke Does the patient have a stroke diagnosis?: No VTE Prior VTE?: No VTE Risk Level:: Medical - moderate - high VTE Device Contraindication: N/A - Device Ordered VTE Drug Contraindication: N/A - Med Ordered
[2022-09-03 15:58] VITALS: BP 150/68; PULSE 93; RESP 16; TEMP 36.8; O2SAT 97
[2022-09-03] MEDS: 0.9 % Sodium Chloride Flush 3 ML SYRINGE IVFLUSH ×2 (16:03→19:39)
[2022-09-03 19:33] VITALS: BP 148/76; PULSE 82; RESP 20; TEMP 36.8; O2SAT 94
[2022-09-04 03:06] VITALS: BP 139/66; PULSE 83; RESP 16; TEMP 36.8; O2SAT 97
[2022-09-04] MEDS: HYDROmorphone HCl 0.5 MG/0.5 ML SYRINGE IVPUSH ×5 (04:34→21:06)
[2022-09-04] MEDS: ondansetron HCL 4 MG/2 ML VIAL IVPUSH ×5 (04:34→21:07)
[2022-09-04 07:50] VITALS: BP 147/73; PULSE 94; RESP 16; TEMP 36.3; O2SAT 97
[2022-09-04] MEDS: Magnesium Oxide 400 MG TABLET PO (08:39)
[2022-09-04] MEDS: Metoprolol Tartrate 25 MG TABLET 75 MG PO ×3 (08:39→21:06)
[2022-09-04] MEDS: Heparin Sodium,Porcine 5,000 UNIT/ML VIAL 5000 UNIT SUBCUT ×3 (08:39→21:07)
[2022-09-04] MEDS: 0.9 % Sodium Chloride Flush 3 ML SYRINGE IVFLUSH ×3 (08:43→21:07)
[2022-09-04 11:10] LABS: MANUAL DIFF FLAG NO
[2022-09-04 11:12] LABS: Basophils Percent Auto 0.4 % (0-2); Eosinophils Absolute Auto 0.1 X10*3/uL (0.0-0.4); Eosinophils Percent Auto 1.4 % (0-4); Hematocrit 32.7 % (37.0-47.0); Hemoglobin 10.6 g/dl (12.0-16.0); Imm Gran Abs Auto 0.04 X10*3/uL (0.00-0.03); Imm Gran Pct Auto 0.5 % (0.0-0.4); Lymphocytes Absolute Auto 1.5 X10*3/uL (1.2-4.9); Lymphocytes Percent Auto 20.9 % (20-40); Mean Corpuscular HGB Conc 32.4 g/dl (31.0-35.0); Mean Corpuscular Hemoglobin 27.6 pg (27.0-33.0); Mean Corpuscular Volume 85.2 fL (80.0-98.0); Mean Platelet Volume 8.9 fL (9.4-12.3); Monocytes Absolute Auto 0.6 X10*3/uL (0.1-1.2); Monocytes Percent Auto 7.9 % (2-11); Neutrophils Absolute Auto 5.1 x10*3/uL (2.0-8.3); Neutrophils Percent Auto 68.9 % (45-73); Platelet Count 273 X10*3/uL (160-400); Red Blood Count 3.84 X10*6/uL (4.20-5.50); Red Cell Distribution Width 13.6 % (11.0-16.0); White Blood Count 7.4 X10*3/uL (4.8-10.8)
[2022-09-04 11:44] LABS: Alanine Aminotransferase < 6 U/L (0-31); Alkaline Phosphatase 127 U/L (39-117); Anion Gap 13 (12-20); Aspartate Amino Transferase 10 U/L (5-31); Bilirubin Total 0.2 mg/dL (0.0-1.0); Blood Urea Nitrogen 5 mg/dL (9-16); Calcium 9.4 mg/dL (8.4-10.2); Carbon Dioxide 27 mmol/L (22-29); Chloride 101 mmol/L (96-108); Creatinine Clr Calc Pharmacy 94.5; Estimated Glomerular Filt Rate > 60; Glucose Random 136 mg/dL (60-115); Potassium 3.3 mmol/L (3.3-5.1); Sodium 138 mmol/L (135-145); Total Protein 5.8 g/dL (6.5-8.0)
--- NOTE | 2022-09-04 11:50 | PM.PNGS ---
Subjective Subjective Date of Service: 09/04/22 Patient reports: no new complaints, feels better and still having pain Interval history: The patient is seen in coverage. She denies any new complaints and reports that the left-sided abdominal pain for which she is taking Dilaudid is improving. She otherwise denies chest pain, difficulty breathing or shortness of breath. Physical Exam Vital Signs: Vital Signs: Last Vital Signs Temp 97.4 F 09/04/22 07:50 Pulse 94 09/04/22 07:50 Resp 16 09/04/22 07:50 BP 147/73 H 09/04/22 07:50 Pulse Ox 97 09/04/22 07:50 O2 Del Method 09/04/22 07:50 O2 Flow Rate 1.0 08/12/22 19:30 BMI result Body Mass Index 27.7 On exam she is nontoxic and in good spirits Sclera are anicteric Abdomen is soft, ostomy pink and viable with some serosanguineous and stool material. Drainage from the percutaneous drain remains purulent. Objective Data Active Medications Acetaminophen (Acetaminophen 325 Mg Tablet) 650 mg PO Q6H PRN PRN Reason: fever, pain Calcium Carbonate (Calcium Carbonate 750 Mg Tab.Chew) 750 mg PO Q4H PRN PRN Reason: Heartburn Last Admin: 08/10/22 19:20 Dose: 750 mg Documented By: SHANTI Heparin Sodium (Porcine) (Heparin Sodium,Porcine 5,000 Unit/Ml Vial) 5,000 unit SUBCUT Q8H [facility] TO [facility] Last Admin: 09/04/22 08:39 Dose: 5,000 unit Documented By: EDDI Hydromorphone HCl (Hydromorphone Hcl 0.5 Mg/0.5 Ml Syringe) 0.5 mg IVPUSH Q4H PRN; Protocol PRN Reason: Pain, Severe (Pain Scale 7-10) Last Admin: 09/04/22 08:39 Dose: 0.5 mg Documented By: EDDI Promethazine HCl 12.5 mg/ (Sodium Chloride) 50.5 mls @ 202 mls/hr IV Q6H PRN PRN Reason: nausea/vomiting Last Infusion: 09/04/22 11:31 Dose: 0 mls/hr Documented By: EDDI Magnesium Oxide (Magnesium Oxide 400 Mg Tablet) 400 mg PO DAILY [facility] Last Admin: 09/04/22 08:39 Dose: 400 mg Documented By: EDDI Metoprolol Tartrate (Metoprolol Tartrate 25 Mg Tablet) 75 mg PO TID [facility]; Protocol Last Admin: 09/04/22 08:39 Dose: 75 mg Documented By: EDDI Pt Own (Pantoprazole [Protonix] 40 Mg Tablet,Delayed Release (Dr/Ec)) 40 mg PO DAILY [facility] Last Admin: 09/04/22 08:39 Dose: 40 mg Documented By: EDDI Ondansetron HCl (Ondansetron Hcl 4 Mg/2 Ml Vial) 4 mg IVPUSH Q4H PRN PRN Reason: Nausea and Vomiting Last Admin: 09/04/22 08:39 Dose: 4 mg Documented By: EDDI Pharmacy Consult (Consult Rx Perform Med Rec) 1 each MISCELLANE ONCE PRN PRN Reason: Consult order Scopolamine (Scopolamine 1.5 Mg Patch.Td.3) 1.5 mg EAR-BEHIND Q72H [facility] Last Admin: 09/02/22 09:18 Dose: 1.5 mg Documented By: KAMILA Sodium Chloride (0.9 % Sodium Chloride Flush 3 Ml Syringe) 3 ml IVFLUSH QSHIFT [facility] Last Admin: 09/04/22 08:43 Dose: 3 ml Documented By: EDDI Sumatriptan Succinate (Sumatriptan Succinate 50 Mg Tablet) 50 mg PO DAILY PRN PRN Reason: Headache Last Admin: 08/24/22 21:37 Dose: 50 mg Documented By: JOSELUIS Labs CBC & Chem 7: 09/04/22 11:05 09/04/22 11:05 Labs: Laboratory Results - last 24 hr 09/04/22 09/04/22 11:05 11:05 MCV 85.2 MCH 27.6 MCHC 32.4 RDW 13.6 Plt Count 273 MPV 8.9 L Immature Gran % (Auto) 0.5 H Neut % (Auto) 68.9 Lymph % (Auto) 20.9 [place] % (Auto) 7.9 Eos % (Auto) 1.4 Baso % (Auto) 0.4 Lymph # (Auto) 1.5 [place] # (Auto) 0.6 Eos # (Auto) 0.1 Baso # (Auto) 0.0 Abs Immat Gran (auto) 0.04 H Absolute Neuts (auto) 5.1 Absolute Nucleated RBC 0.000 Nucleated RBC % (auto) 0.0 Anion Gap 13 Estim Creat Clear Calc 94.5 Estimated GFR > 60 Random Glucose 136 H Calcium 9.4 Total Bilirubin 0.2 AST 10 ALT < 6 Alkaline Phosphatase 127 H Total Protein 5.8 L Albumin 3.0 L Procedures Date of Service Date of Service: 09/04/22 Progress Note: A&P Assessment and plan (1) Intra-abdominal abscess: Status: Acute (2) S/P colectomy: Status: Acute (3) Crohn's disease: Status: Acute Plan Electrolytes normal. Continue present management. Time Spent With Patient Time: Total time managing care of this patient today ____ minutes. Quality Stroke Does the patient have a stroke diagnosis?: No VTE Prior VTE?: No VTE Risk Level:: Medical - moderate - high VTE Device Contraindication: N/A - Device Ordered VTE Drug Contraindication: N/A - Med Ordered
[2022-09-04 15:27] VITALS: BP 140/67; PULSE 94; RESP 19; TEMP 37.2; O2SAT 95
[2022-09-04 18:59] VITALS: BP 129/64; PULSE 78; RESP 18; TEMP 37.3; O2SAT 95
[2022-09-05] MEDS: HYDROmorphone HCl 0.5 MG/0.5 ML SYRINGE IVPUSH ×6 (01:04→21:20)
[2022-09-05] MEDS: ondansetron HCL 4 MG/2 ML VIAL IVPUSH ×6 (01:04→21:20)
[2022-09-05 03:32] VITALS: BP 115/67; PULSE 82; RESP 16; TEMP 36.6; O2SAT 95
[2022-09-05] MEDS: Heparin Sodium,Porcine 5,000 UNIT/ML VIAL 5000 UNIT SUBCUT ×3 (05:20→21:20)
[2022-09-05 07:32] VITALS: BP 121/62; PULSE 90; RESP 16; TEMP 36; O2SAT 95
--- NOTE | 2022-09-05 08:32 | PM.PNGS ---
Subjective Subjective Date of Service: 09/05/22 Interval history: Patient is eating her breakfast but does report nausea this morning. The nausea usually does improve with Zofran. She denies any vomiting. The abdominal pain is okay at this time. Physical Exam Vital Signs: Vital Signs: Last Vital Signs Temp 96.8 F 09/05/22 07:32 Pulse 90 09/05/22 07:32 Resp 16 09/05/22 07:32 BP 121/62 09/05/22 07:32 Pulse Ox 95 09/05/22 07:32 O2 Del Method 09/05/22 07:32 O2 Flow Rate 1.0 08/12/22 19:30 BMI result Body Mass Index 27.7 Const: General: no acute distress Nutritional Appearance: well nourished Orientation/consciousness: patient oriented x3 Limitations: no limitations Resp: Effort & Inspection: normal respiratory effort, no cough and no respiratory distress GI: Other: Ostomy producing thin liquids fluid. Left drain with creamy white fluid. Right drain empty. Skin: Other: Warm, dry, no rash Neuro: General: patient oriented x3 Objective Data Active Medications Acetaminophen (Acetaminophen 325 Mg Tablet) 650 mg PO Q6H PRN PRN Reason: fever, pain Calcium Carbonate (Calcium Carbonate 750 Mg Tab.Chew) 750 mg PO Q4H PRN PRN Reason: Heartburn Last Admin: 08/10/22 19:20 Dose: 750 mg Documented By: SHANTI Heparin Sodium (Porcine) (Heparin Sodium,Porcine 5,000 Unit/Ml Vial) 5,000 unit SUBCUT Q8H [facility] Last Admin: 09/05/22 05:20 Dose: 5,000 unit Documented By: KARAN Hydromorphone HCl (Hydromorphone Hcl 0.5 Mg/0.5 Ml Syringe) 0.5 mg IVPUSH Q4H PRN; Protocol PRN Reason: Pain, Severe (Pain Scale 7-10) Last Admin: 09/05/22 05:20 Dose: 0.5 mg Documented By: KARAN Promethazine HCl 12.5 mg/ (Sodium Chloride) 50.5 mls @ 202 mls/hr IV Q6H PRN PRN Reason: nausea/vomiting Last Infusion: 09/05/22 01:06 Dose: 0 mls/hr Documented By: KARAN Magnesium Oxide (Magnesium Oxide 400 Mg Tablet) 400 mg PO DAILY [facility] Last Admin: 09/04/22 08:39 Dose: 400 mg Documented By: EDDI Metoprolol Tartrate (Metoprolol Tartrate 25 Mg Tablet) 75 mg PO TID [facility]; Protocol Last Admin: 09/04/22 21:06 Dose: 75 mg Documented By: KARAN Pt Own (Pantoprazole [Protonix] 40 Mg Tablet,Delayed Release (Dr/Ec)) 40 mg PO DAILY [facility] Last Admin: 09/04/22 08:39 Dose: 40 mg Documented By: EDDI Ondansetron HCl (Ondansetron Hcl 4 Mg/2 Ml Vial) 4 mg IVPUSH Q4H PRN PRN Reason: Nausea and Vomiting Last Admin: 09/05/22 05:20 Dose: 4 mg Documented By: KARAN Pharmacy Consult (Consult Rx Perform Med Rec) 1 each MISCELLANE ONCE PRN PRN Reason: Consult order Scopolamine (Scopolamine 1.5 Mg Patch.Td.3) 1.5 mg EAR-BEHIND Q72H [facility] Last Admin: 09/02/22 09:18 Dose: 1.5 mg Documented By: KAMILA Sodium Chloride (0.9 % Sodium Chloride Flush 3 Ml Syringe) 3 ml IVFLUSH QSHIFT [facility] Last Admin: 09/04/22 21:07 Dose: 3 ml Documented By: KARAN Sumatriptan Succinate (Sumatriptan Succinate 50 Mg Tablet) 50 mg PO DAILY PRN PRN Reason: Headache Last Admin: 08/24/22 21:37 Dose: 50 mg Documented By: JOSELUIS Labs CBC & Chem 7: 09/04/22 11:05 09/04/22 11:05 Labs: Laboratory Results - last 24 hr 09/04/22 09/04/22 11:05 11:05 MCV 85.2 MCH 27.6 MCHC 32.4 RDW 13.6 Plt Count 273 MPV 8.9 L Immature Gran % (Auto) 0.5 H Neut % (Auto) 68.9 Lymph % (Auto) 20.9 [place] % (Auto) 7.9 Eos % (Auto) 1.4 Baso % (Auto) 0.4 Lymph # (Auto) 1.5 [place] # (Auto) 0.6 Eos # (Auto) 0.1 Baso # (Auto) 0.0 Abs Immat Gran (auto) 0.04 H Absolute Neuts (auto) 5.1 Absolute Nucleated RBC 0.000 Nucleated RBC % (auto) 0.0 Anion Gap 13 Estim Creat Clear Calc 94.5 Estimated GFR > 60 Random Glucose 136 H Calcium 9.4 Total Bilirubin 0.2 AST 10 ALT < 6 Alkaline Phosphatase 127 H Total Protein 5.8 L Albumin 3.0 L Procedures Date of Service Date of Service: 09/05/22 Progress Note: A&P Assessment and plan (1) Intra-abdominal abscess: Status: Acute Assessment and Plan: Patient continues with nausea but does respond to current medications. Stoma output remains good without evidence of obstruction. Left drain is producing some purulent-appearing fluid model right drain is empty. Continue Zofran and Phenergan. P.o. intake as tolerated. Encourage mobilization. Time Spent With Patient Time: Total time managing care of this patient today ____ minutes. Quality Stroke Does the patient have a stroke diagnosis?: No VTE Prior VTE?: No VTE Risk Level:: Medical - moderate - high VTE Device Contraindication: N/A - Device Ordered VTE Drug Contraindication: N/A - Med Ordered
--- NOTE | 2022-09-05 08:53 | PM.PNGS ---
Subjective Subjective Date of Service: 09/05/22 Interval history: No events over the weekend. Dry heaving this morning. PO intake has been decreasing again. Physical Exam Vital Signs: Vital Signs: Last Vital Signs Temp 96.8 F 09/05/22 07:32 Pulse 90 09/05/22 07:32 Resp 16 09/05/22 07:32 BP 121/62 09/05/22 07:32 Pulse Ox 95 09/05/22 07:32 O2 Del Method 09/05/22 07:32 O2 Flow Rate 1.0 08/12/22 19:30 BMI result Body Mass Index 27.7 Const: General: no acute distress, tired appearing and other (uncomfortable appearing) Orientation/consciousness: patient oriented x3 Resp: Effort & Inspection: normal respiratory effort GI: Other: Drain bulbs continue with purulent output; ostomy pink with liquid output Inspection: No distended Palpation (GI): Soft to palpation, Tenderness to palpation present (GI), no guarding and not rigid Skin: General skin exam: no rashes or lesions noted Neuro: General: patient oriented x3 and moves all extremities Objective Data Active Medications Acetaminophen (Acetaminophen 325 Mg Tablet) 650 mg PO Q6H PRN PRN Reason: fever, pain Calcium Carbonate (Calcium Carbonate 750 Mg Tab.Chew) 750 mg PO Q4H PRN PRN Reason: Heartburn Last Admin: 08/10/22 19:20 Dose: 750 mg Documented By: SHANTI Heparin Sodium (Porcine) (Heparin Sodium,Porcine 5,000 Unit/Ml Vial) 5,000 unit SUBCUT Q8H [facility] Last Admin: 09/05/22 05:20 Dose: 5,000 unit Documented By: KARAN Hydromorphone HCl (Hydromorphone Hcl 0.5 Mg/0.5 Ml Syringe) 0.5 mg IVPUSH Q4H PRN; Protocol PRN Reason: Pain, Severe (Pain Scale 7-10) Last Admin: 09/05/22 05:20 Dose: 0.5 mg Documented By: KARAN Promethazine HCl 12.5 mg/ (Sodium Chloride) 50.5 mls @ 202 mls/hr IV Q6H PRN PRN Reason: nausea/vomiting Last Admin: 09/05/22 08:37 Dose: 202 mls/hr Documented By: HO.[email or web address] Lactated Ringer's (Lr) 1,000 mls @ 60 mls/hr IVCONT .[id number] [facility] Magnesium Oxide (Magnesium Oxide 400 Mg Tablet) 400 mg PO DAILY [facility] Last Admin: 09/04/22 08:39 Dose: 400 mg Documented By: EDDI Metoprolol Tartrate (Metoprolol Tartrate 25 Mg Tablet) 75 mg PO TID [facility]; Protocol Last Admin: 09/04/22 21:06 Dose: 75 mg Documented By: KARAN Pt Own (Pantoprazole [Protonix] 40 Mg Tablet,Delayed Release (Dr/Ec)) 40 mg PO DAILY [facility] Last Admin: 09/04/22 08:39 Dose: 40 mg Documented By: EDDI Ondansetron HCl (Ondansetron Hcl 4 Mg/2 Ml Vial) 4 mg IVPUSH Q4H PRN PRN Reason: Nausea and Vomiting Last Admin: 09/05/22 05:20 Dose: 4 mg Documented By: KARAN Pharmacy Consult (Consult Rx Perform Med Rec) 1 each MISCELLANE ONCE PRN PRN Reason: Consult order Scopolamine (Scopolamine 1.5 Mg Patch.Td.3) 1.5 mg EAR-BEHIND Q72H [facility] Last Admin: 09/02/22 09:18 Dose: 1.5 mg Documented By: KAMILA Sodium Chloride (0.9 % Sodium Chloride Flush 3 Ml Syringe) 3 ml IVFLUSH QSHIFT [facility] Last Admin: 09/04/22 21:07 Dose: 3 ml Documented By: KARAN Sumatriptan Succinate (Sumatriptan Succinate 50 Mg Tablet) 50 mg PO DAILY PRN PRN Reason: Headache Last Admin: 08/24/22 21:37 Dose: 50 mg Documented By: JOSELUIS Labs CBC & Chem 7: 09/04/22 11:05 09/04/22 11:05 Labs: Laboratory Results - last 24 hr 09/04/22 09/04/22 11:05 11:05 MCV 85.2 MCH 27.6 MCHC 32.4 RDW 13.6 Plt Count 273 MPV 8.9 L Immature Gran % (Auto) 0.5 H Neut % (Auto) 68.9 Lymph % (Auto) 20.9 [place] % (Auto) 7.9 Eos % (Auto) 1.4 Baso % (Auto) 0.4 Lymph # (Auto) 1.5 [place] # (Auto) 0.6 Eos # (Auto) 0.1 Baso # (Auto) 0.0 Abs Immat Gran (auto) 0.04 H Absolute Neuts (auto) 5.1 Absolute Nucleated RBC 0.000 Nucleated RBC % (auto) 0.0 Anion Gap 13 Estim Creat Clear Calc 94.5 Estimated GFR > 60 Random Glucose 136 H Calcium 9.4 Total Bilirubin 0.2 AST 10 ALT < 6 Alkaline Phosphatase 127 H Total Protein 5.8 L Albumin 3.0 L Procedures Date of Service Date of Service: 09/05/22 Progress Note: A&P Assessment and plan (1) Intra-abdominal abscess: Status: Acute (2) S/P colectomy: Status: Acute (3) Nausea: Status: Acute Plan Prolonged hospitalization for intraabdominal abscess Main issues nausea & deconditioning on Zofran and Phenergan Stoma with good output, clinically not obstructed Will restart on IVF as PO intake decreased labs ok push PO intake - ?GI consult for input re nausea- she does report chronic nausea and ?hx of gastroparesis PT, OT stoma care Time Spent With Patient Time: Total time managing care of this patient today ____ minutes. Quality Stroke Does the patient have a stroke diagnosis?: No VTE Prior VTE?: No VTE Risk Level:: Medical - moderate - high VTE Device Contraindication: N/A - Device Ordered VTE Drug Contraindication: N/A - Med Ordered
[2022-09-05] MEDS: 0.9 % Sodium Chloride Flush 3 ML SYRINGE IVFLUSH (09:20)
[2022-09-05] MEDS: Metoprolol Tartrate 25 MG TABLET 75 MG PO ×3 (09:20→21:21)
[2022-09-05] MEDS: Scopolamine 1.5 MG PATCH.TD.3 EAR-BEHIND (09:21)
[2022-09-05] MEDS: Lactated Ringers 1,000 ML 60 ML IVCONT ×2 (09:21→21:21)
[2022-09-05] MEDS: Magnesium Oxide 400 MG TABLET PO (09:21)
[2022-09-05 11:26] VITALS: BP 132/59; PULSE 81; RESP 12; TEMP 36.5; O2SAT 96
[2022-09-05 15:22] VITALS: BP 125/60; PULSE 88; RESP 16; TEMP 36.9; O2SAT 95
--- NOTE | 2022-09-05 15:23 | P.CNPS_ITS ---
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 She was discharged to the subacute rehab on on 08/01 but she was readmitted on the 08/05 due to leukocytosis and drainage and found later that she has intra-abdominal abscess that needed drainage via CT? guidance in 2 occasions.? The primary team asked for a consultation?for reassessment of depression due to long-term hospitalization. On interview, the patient remembered me from the p revious visit. The patient stated that Cymbalta make her more nauseous and she can not take it at this moment. On assessment, the patient adamantly denies psychotic symptoms, suicidal thoughts or any safety concerns. She states that she has good social support by her family and even though that she is suffering a lot on this admission she is future oriented and she admitted mild depressive symptoms. She also complained of a sporadic anxiety. Even though, she denies anhedonia, lack of energy or worsening of neurovegetative symptoms. At this moment, the patient has adjustment disorder with anxiety and I would recommend not to restart Cymbalta at this moment. Cymbalta was prescribed initi ally by the cyber systems operations specialist due to her fibromyalgia but not for depression. Medical Evaluation Reviewed: Yes [facility] Medical History Arthritis Back pain Carpal tunnel syndrome COVID-19 vaccine series completed Crohn's disease Environmental allergies Fever of unknown origin Fibromyalgia GERD (gastroesophageal reflux disease) Herniated cervical disc Hx of migraines Intra-abdominal abscess Intra-abdominal abscess Iron deficiency anemia Leukocytosis Perforated viscus PONV (postoperative nausea and vomiting) Shock Thoracic disc herniation Vitamin D deficiency Surgical History History of esophagogastroduodenoscopy (EGD) History of surgery History of tonsillectomy History of tubal ligation Hx of cholecystectomy Hx of colonoscopy Hx of fusion of cervical spine Hx of shoulder surgery Status post colostomy Family History: She has a daughter with psychiatric issues Social History: , with adult children, with good social support Substance History: Denies Trauma History: Denies Diagnostics Vital Signs (24Hr): Vital Signs - 24 hr 09/04/22 15:27 09/04/22 18:59 09/05/22 03:32 Temperature 99.0 F 99.1 F 97.9 F Pulse Rate 94 78 82 Respiratory Rate 19 18 16 Blood Pressure 140/67 H 129/64 115/67 Pulse Oximetry 95 95 95 Oxygen Delivery Method Room Air Room Air Room Air 09/05/22 07:32 09/05/22 11:26 09/05/22 15:22 Temperature 96.8 F 97.7 F 98.5 F Pulse Rate 90 81 88 Respiratory Rate 16 12 16 Blood Pressure 121/62 132/59 L 125/60 Pulse Oximetry 95 96 95 Oxygen Delivery Method Room Air Room Air Room Air BMI result Body Mass Index 27.7 Labs Results: 09/04/22 11:05 09/04/22 11:05 Labs: Laboratory Results - last 48 hr 09/04/22 09/04/22 11:05 11:05 WBC 7.4 RBC 3.84 L Hgb 10.6 L Hct 32.7 L MCV 85.2 MCH 27.6 MCHC 32.4 RDW 13.6 Plt Count 273 MPV 8.9 L Immature Gran % (Auto) 0.5 H Neut % (Auto) 68.9 Lymph % (Auto) 20.9 [place] % (Auto) 7.9 Eos % (Auto) 1.4 Baso % (Auto) 0.4 Lymph # (Auto) 1.5 [place] # (Auto) 0.6 Eos # (Auto) 0.1 Baso # (Auto) 0.0 Abs Immat Gran (auto) 0.04 H Absolute Neuts (auto) 5.1 Absolute Nucleated RBC 0.000 Nucleated RBC % (auto) 0.0 Sodium 138 Potassium 3.3 Chloride 101 Carbon Dioxide 27 Anion Gap 13 BUN 5 L Creatinine 0.59 Estim Creat Clear Calc 94.5 Estimated GFR > 60 Random Glucose 136 H Calcium 9.4 Total Bilirubin 0.2 AST 10 ALT < 6 Alkaline Phosphatase 127 H Total Protein 5.8 L Albumin 3.0 L Imaging Radiology Impressions: ITS Impressions Abdomen/Pelvis CT 08/05/22 13:10 IMPRESSION: Large intraperitoneal abscess extending approximately 18 cm wide and craniocaudad in length from upper abdomen to the mid pelvis region. A drain is to be placed on Sunday. Patient is status post total colectomy and right mid abdomen ileostomy. Results were discussed with Dr. Megha Ralph after the exam. Fleischner guidelines were followed. Abscess Drainage CT 08/07/22 13:09 IMPRESSION: CT-guided 12-German left lower quadrant abscess drain placement. Abdomen/Pelvis CT 08/10/22 12:52 IMPRESSION: Stable appearance of the abdomen and pelvis with continued gas and fluid and drainage catheter in place. Air bubbles are not all nondependent and are interspersed within the material with the material likely being thickened and may not be drainable by catheter drainage. Stable bilateral pleural effusions. Stable periumbilical hernia in communication with the fluid collection. Left anterior abdominal wall subcutaneous collection without change and with question of fistulous tract to the hernia. Fleischner guidelines were followed. Abscess Drainage CT 08/11/22 14:46 IMPRESSION: Successful CT fluoroscopy-guided placement of a large bore 14 German APD catheter with a right abdominal approach and its tip lying within the left abdomen. Abdomen/Pelvis CT 08/28/22 09:43 IMPRESSION: Large complex multiloculated fluid collection in the anterior abdomen with [address] is only slightly decreased in size from the prior study. There is increasing although still incomplete peripheral rim enhancement of this dominant collection. The dominant collection communicates with a subcapsular collection scalloping the left lobe of liver and the spleen with thick peripheral rim enhancement which is not significantly changed in size and presumably and drained. Fluid extends directly from the dominant collection through the anterior abdominal wall to the skin surface in the region of the umbilicus highly suspicious for a fistula. Needle Aspiration CT 08/31/22 13:01 IMPRESSION: Both abdominal drainage catheters seen to be patent. Major regions of collection are being drained as described. 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 Mental Status Exam Mental Status Exam Patient Appearance: Appropriate Patient Orientation: Person, Place and Situation Level of Consciousness: Awake and Appropriate Patient Behavior: Talkative and Cooperative Mood Description: Appropriate Affect Description: Constricted Patient Cognition Impaired: No Ability to Follow Directions: Good Speech Pattern: Clear Memory Description: Intact Hallucinations: None Delusions: Not Present Thought Process: Linear Thought Content: positive for Circumstantial and positive for Goal Oriented Judgement: Fair Medications Medications Current Medications Acetaminophen (Acetaminophen 325 Mg Tablet) 650 mg PO Q6H PRN PRN Reason: fever, pain Calcium Carbonate (Calcium Carbonate 750 Mg Tab.Chew) 750 mg PO Q4H PRN PRN Reason: Heartburn Last Admin: 08/10/22 19:20 Dose: 750 mg Heparin Sodium (Porcine) (Heparin Sodium,Porcine 5,000 Unit/Ml Vial) 5,000 unit SUBCUT Q8H [facility] Last Admin: 09/05/22 05:20 Dose: 5,000 unit Hydromorphone HCl (Hydromorphone Hcl 0.5 Mg/0.5 Ml Syringe) 0.5 mg IVPUSH Q4H PRN; Protocol PRN Reason: Pain, Severe (Pain Scale 7-10) Last Admin: 09/05/22 13:44 Dose: 0.5 mg Promethazine HCl 12.5 mg/ (Sodium Chloride) 50.5 mls @ 202 mls/hr IV Q6H PRN PRN Reason: nausea/vomiting Last Infusion: 09/05/22 09:39 Dose: Infused Lactated Ringer's (Lr) 1,000 mls @ 60 mls/hr IVCONT .[id number] [facility] Last Admin: 09/05/22 09:21 Dose: 60 mls/hr Magnesium Oxide (Magnesium Oxide 400 Mg Tablet) 400 mg PO DAILY [facility] Last Admin: 09/05/22 09:21 Dose: 400 mg Metoprolol Tartrate (Metoprolol Tartrate 25 Mg Tablet) 75 mg PO TID [facility]; Protocol Last Admin: 09/05/22 09:20 Dose: 75 mg Pt Own (Pantoprazole [Protonix] 40 Mg Tablet,Delayed Release (Dr/Ec)) 40 mg PO DAILY [facility] Last Admin: 09/05/22 09:20 Dose: 40 mg Ondansetron HCl (Ondansetron Hcl 4 Mg/2 Ml Vial) 4 mg IVPUSH Q4H PRN PRN Reason: Nausea and Vomiting Last Admin: 09/05/22 13:44 Dose: 4 mg Pharmacy Consult (Consult Rx Perform Med Rec) 1 each MISCELLANE ONCE PRN PRN Reason: Consult order Scopolamine (Scopolamine 1.5 Mg Patch.Td.3) 1.5 mg EAR-BEHIND Q72H [facility] Last Admin: 09/05/22 09:21 Dose: 1.5 mg Sodium Chloride (0.9 % Sodium Chloride Flush 3 Ml Syringe) 3 ml IVFLUSH QSHIFT [facility] Last Admin: 09/05/22 09:20 Dose: 3 ml Sumatriptan Succinate (Sumatriptan Succinate 50 Mg Tablet) 50 mg PO DAILY PRN PRN Reason: Headache Last Admin: 08/24/22 21:37 Dose: 50 mg Allergies Allergies Allergy/AdvReac Type Severity Reaction Status Date / Time omeprazole [OMEPRAZOLE] Allergy Severe N/V Verified 08/07/22 10:48 tramadol [From Ultram] Allergy Intermediate ITCHING Verified 08/07/22 10:48 ibuprofen [From Motrin] Allergy Unknown Verified 08/07/22 10:48 Assessment & Plan Assessment & Plan (1) Adjustment disorder with depressed mood: Status: Acute Code(s): F43.21 - Adjustment disorder with depressed mood Plan The patient is a 62-year-old female with a long hospitalization due to gastric perforation and other complications. She also carries a diagnosis of fibromyalgia. At this moment, the patient does not have depressive symptoms besides symptoms in clear correlation with her psychosocial stressors. No evidence of suicidality or any safety concerns, no evidence of psychosis. Plan 1. At this moment, to not start Cymbalta sings it makes her more nauseous. Cymbalta has been prescribed for fibromyalgia and she does not have any symptoms at this moment. 2. There is no need to start an antidepressant, even though the patient has being on pain, she is future oriented and she is hopeful that she will get better. 3. If the patient gets very anxious, lorazepam 0.25 p.o. q.6 hours would be recommended as a p.r.n.. 4. Reassessment as demand. Total time managing care of this patient today _25___ minutes. Patient educated on: diagnosis and therapeutic strategies Informed Consent: understands
[2022-09-05 19:53] VITALS: BP 134/65; PULSE 84; RESP 16; TEMP 36.8; O2SAT 96
[2022-09-05 20:00] VITALS: BP 167/92; PULSE 84; RESP 18; TEMP 36.9; O2SAT 96
[2022-09-06] MEDS: HYDROmorphone HCl 0.5 MG/0.5 ML SYRINGE IVPUSH ×6 (01:04→22:04)
[2022-09-06] MEDS: ondansetron HCL 4 MG/2 ML VIAL IVPUSH ×6 (01:04→22:04)
[2022-09-06 03:49] VITALS: BP 132/69; PULSE 83; RESP 18; TEMP 36.8; O2SAT 96
[2022-09-06] MEDS: Heparin Sodium,Porcine 5,000 UNIT/ML VIAL 5000 UNIT SUBCUT ×3 (05:36→22:04)
[2022-09-06] MEDS: 0.9 % Sodium Chloride Flush 3 ML SYRINGE IVFLUSH (07:55)
[2022-09-06] MEDS: Magnesium Oxide 400 MG TABLET PO (07:55)
[2022-09-06] MEDS: Metoprolol Tartrate 25 MG TABLET 75 MG PO ×3 (07:55→21:10)
[2022-09-06 08:00] VITALS: BP 130/60; PULSE 87; RESP 18; TEMP 36.7; O2SAT 94
--- NOTE | 2022-09-06 13:58 | PM.EVENT ---
Event Note Date of Service: 09/06/22 Event Note: GI consult dictated Nausea may be related to underlying fluid collections, or atypical gerd. Continue fluid drainage, symptomatic care with antinausea medication. Protonix dose increased to 40 mg bid. Discussed EGD with Ju, but is likely to be low yield. Time Spent With Patient Time: Total time managing care of this patient today ____ minutes.
[2022-09-06] MEDS: Lactated Ringers 1,000 ML 60 ML IVCONT (14:04)
--- NOTE | 2022-09-06 14:16 | P.PNGS_ITS ---
Subjective Subjective Date of Service: 09/06/22 Interval history: More nausea and vomiting today, better with Zofran. Saw Dr. Peralta today, will be starting increased dose of Protonix, 40 mg b.i.d.. Physical Exam Vital Signs: Vital Signs: Last Vital Signs Temp 98.0 F 09/06/22 08:00 Pulse 87 09/06/22 08:00 Resp 18 09/06/22 08:00 BP 130/60 09/06/22 08:00 Pulse Ox 94 09/06/22 08:00 O2 Del Method 09/06/22 08:00 O2 Flow Rate 1.0 08/12/22 19:30 BMI result Body Mass Index 27.7 Const: General: no acute distress Nutritional Appearance: well nourished Orientation/consciousness: patient oriented x3 Limitations: no limitations Resp: Effort & Inspection: normal respiratory effort, no cough and no respiratory distress GI: Other: Ostomy producing thin liquids fluid. Left drain with creamy white fluid. Right drain empty. Skin: Other: Warm, dry, no rash Neuro: General: patient oriented x3 Objective Data Active Medications Acetaminophen (Acetaminophen 325 Mg Tablet) 650 mg PO Q6H PRN PRN Reason: fever, pain Calcium Carbonate (Calcium Carbonate 750 Mg Tab.Chew) 750 mg PO Q4H PRN PRN Reason: Heartburn Last Admin: 08/10/22 19:20 Dose: 750 mg Documented By: SHANTI Heparin Sodium (Porcine) (Heparin Sodium,Porcine 5,000 Unit/Ml Vial) 5,000 unit SUBCUT Q8H [facility] Last Admin: 09/06/22 14:04 Dose: 5,000 unit Documented By: GEORGE Hydromorphone HCl (Hydromorphone Hcl 0.5 Mg/0.5 Ml Syringe) 0.5 mg IVPUSH Q4H PRN; Protocol PRN Reason: Pain, Severe (Pain Scale 7-10) Last Admin: 09/06/22 14:04 Dose: 0.5 mg Documented By: GEORGE Promethazine HCl 12.5 mg/ (Sodium Chloride) 50.5 mls @ 202 mls/hr IV Q6H PRN PRN Reason: nausea/vomiting Last Infusion: 09/06/22 08:30 Dose: 0 mls/hr Documented By: GEORGE Lactated Ringer's (Lr) 1,000 mls @ 60 mls/hr IVCONT .[id number] [facility] Last Admin: 09/06/22 14:04 Dose: 60 mls/hr Documented By: GEORGE Lorazepam (Lorazepam 0.5 Mg Tablet) 0.25 mg PO Q8H PRN PRN Reason: Severe anxiety Magnesium Oxide (Magnesium Oxide 400 Mg Tablet) 400 mg PO DAILY [facility] Last Admin: 09/06/22 07:55 Dose: 400 mg Documented By: GEORGE Metoprolol Tartrate (Metoprolol Tartrate 25 Mg Tablet) 75 mg PO TID [facility]; Protocol Last Admin: 09/06/22 14:04 Dose: 75 mg Documented By: GEORGE Pt Own (Pantoprazole [Protonix] 40 Mg Tablet,Delayed Release (Dr/Ec)) 40 mg PO BID@0630,1630 [facility] Ondansetron HCl (Ondansetron Hcl 4 Mg/2 Ml Vial) 4 mg IVPUSH Q4H PRN PRN Reason: Nausea and Vomiting Last Admin: 09/06/22 14:04 Dose: 4 mg Documented By: GEORGE Pharmacy Consult (Consult Rx Perform Med Rec) 1 each MISCELLANE ONCE PRN PRN Reason: Consult order Scopolamine (Scopolamine 1.5 Mg Patch.Td.3) 1.5 mg EAR-BEHIND Q72H [facility] Last Admin: 09/05/22 09:21 Dose: 1.5 mg Documented By: MALU Sodium Chloride (0.9 % Sodium Chloride Flush 3 Ml Syringe) 3 ml IVFLUSH QSHIFT [facility] Last Admin: 09/06/22 07:55 Dose: 3 ml Documented By: GEORGE Sumatriptan Succinate (Sumatriptan Succinate 50 Mg Tablet) 50 mg PO DAILY PRN PRN Reason: Headache Last Admin: 08/24/22 21:37 Dose: 50 mg Documented By: JOSELUIS Labs CBC & Chem 7: 09/04/22 11:05 09/04/22 11:05 Procedures Date of Service Date of Service: 09/06/22 Progress Note: A&P Assessment and plan (1) Intra-abdominal abscess: Status: Acute Assessment and Plan: Patient continues with nausea but does respond to current medications. Protonix 40 mg b.i.d. starting today. Patient ambulating into the hallway up to the hallway window and back. Stoma output remains good without evidence of obstruction. Left drain is producing some purulent-appearing fluid; right drain is empty. Continue Zofran and Phenergan. P.o. intake as tolerated. Encourage mobilization. Time Spent With Patient Time: Total time managing care of this patient today _20___ minutes. Quality Stroke Does the patient have a stroke diagnosis?: No VTE Prior VTE?: No VTE Risk Level:: Medical - moderate - high VTE Device Contraindication: N/A - Device Ordered VTE Drug Contraindication: N/A - Med Ordered
[2022-09-06 15:56] VITALS: BP 127/63; PULSE 84; RESP 18; TEMP 37.2; O2SAT 95
[2022-09-06 20:00] VITALS: BP 128/60; PULSE 84; RESP 16; TEMP 37.1; O2SAT 94
--- NOTE | 2022-09-06 20:36 | CONS_ITS ---
DATE OF SERVICE: 09/06/2022 REFERRING PHYSICIAN: Tiffanie Villeda PA-C REASON FOR CONSULTATION: Nausea. HISTORY OF PRESENT ILLNESS: The patient is a pleasant 62-year-old woman, well known to me from prior evaluation and had an admission earlier in May with a perforation with fecal peritonitis that required colostomy. 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 She was readmitted after discharge on August 11 with incisional discharge and white blood cell count that was elevated. Since her initial surgery, she reports episodic nausea and actually has had this in the past as well. She does have a history of gastroesophageal reflux disease that has been well controlled on Protonix 40 mg daily. She has no associated dysphagia, hematemesis, or melena. She does report antinausea medications seem to help when she is given these, but they seem to wear off. Previous evaluation with endoscopy in June of 2021 showed normal esophagus with no esophagitis, and partly digested food in the stomach raising the question of gastroparesis. No obstruction was seen. Biopsies at that time were negative for H. pylori and Roberts esophagus and she had no evidence of celiac disease on small-bowel biopsies. She underwent evaluation with a nuclear scan to assess gastric emptying, which did show some mild retention of solid food in the stomach at 4 hours. PAST MEDICAL HISTORY: 1. Questionable history of Crohn disease although recent pathology specimens have shown no evidence of active disease. 2. Gastroesophageal reflux disease. 3. Fibromyalgia. 4. Anemia. 5. DVT. 6. Adjustment disorder/depression. 7. C. diff colitis. CURRENT MEDICATIONS: Her current medication list is reviewed in the chart. ALLERGIES: OMEPRAZOLE, TRAMADOL AND IBUPROFEN. FAMILY HISTORY: This is reviewed with the patient and is noncontributory. SOCIAL HISTORY: There is no current tobacco, alcohol or substance abuse. REVIEW OF SYSTEMS: SKIN: No pruritus. HEENT: Negative. CARDIOPULMONARY: No shortness of breath or chest pain. GASTROINTESTINAL: As above. GENITOURINARY: Negative. NEUROPSYCHIATRIC: Negative. PHYSICAL EXAMINATION: GENERAL: Shows a pleasant female, lying in bed. VITAL SIGNS: Reviewed in the electronic medical record and are stable. SKIN: Anicteric. HEENT: No scleral icterus. NECK: Without lymphadenopathy or thyromegaly. LUNGS: Clear. HEART: Regular rate and rhythm. S1, S2. No murmur. ABDOMEN: Soft without focal masses. There is tenderness to palpation along the left side of the abdomen near 1 of her drain sites. There is no guarding or rebound. Ostomy looks intact. EXTREMITIES: Without edema. DIAGNOSTIC DATA: Laboratory data and CT scans are reviewed. IMPRESSION: Nausea. We discussed the differential diagnosis for her nausea today. It is possible this could be related to her abscesses, which are currently being drained. It may also be a manifestation of worsening GERD and there may be a component of contribution from gastroparesis. I would recommend increasing her pantoprazole to 40 mg b.i.d. to see if this helps her symptoms. I did discuss endoscopy with her, but I think this is likely to be low yield at this time. Thanks for asking me to see her. I will follow her in the hospital with you. MD KYLIE Painting/CECILIO / [phone]
[2022-09-07] MEDS: HYDROmorphone HCl 0.5 MG/0.5 ML SYRINGE IVPUSH ×6 (02:06→22:32)
[2022-09-07] MEDS: ondansetron HCL 4 MG/2 ML VIAL IVPUSH ×6 (02:06→22:32)
[2022-09-07 03:34] VITALS: BP 133/63; PULSE 82; RESP 16; TEMP 36.7; O2SAT 94
[2022-09-07] MEDS: Lactated Ringers 1,000 ML 60 ML IVCONT (06:04)
[2022-09-07] MEDS: Heparin Sodium,Porcine 5,000 UNIT/ML VIAL 5000 UNIT SUBCUT ×3 (06:14→22:32)
[2022-09-07 08:00] VITALS: BP 145/66; PULSE 89; RESP 18; TEMP 36.5; O2SAT 94
[2022-09-07] MEDS: Metoprolol Tartrate 25 MG TABLET 75 MG PO ×3 (08:37→21:26)
[2022-09-07] MEDS: Magnesium Oxide 400 MG TABLET PO (08:37)
[2022-09-07 16:00] VITALS: BP 131/62; PULSE 80; RESP 18; TEMP 36.8; O2SAT 96
--- NOTE | 2022-09-07 16:10 | P.PNGS_ITS ---
Subjective Subjective Date of Service: 09/07/22 Interval history: No significant changes today. Was able to eat breakfast but developed nausea and vomiting after eating lunch. She was up and ambulating today as well. She reports some abdominal pain in the right upper quadrant lateral to the drain site. Physical Exam Vital Signs: Vital Signs: Last Vital Signs Temp 97.7 F 09/07/22 08:00 Pulse 89 09/07/22 08:00 Resp 18 09/07/22 08:00 BP 145/66 H 09/07/22 08:00 Pulse Ox 94 09/07/22 08:00 O2 Del Method 09/07/22 08:00 O2 Flow Rate 1.0 08/12/22 19:30 BMI result Body Mass Index 27.7 Const: General: no acute distress Nutritional Appearance: well nourished Orientation/consciousness: patient oriented x3 Limitations: no limitations Resp: Effort & Inspection: normal respiratory effort, no cough and no respiratory distress GI: Other: Ostomy producing thin liquids fluid. Left drain with creamy white fluid. Right drain empty. Skin: Other: Warm, dry, no rash Neuro: General: patient oriented x3 Objective Data Active Medications Acetaminophen (Acetaminophen 325 Mg Tablet) 650 mg PO Q6H PRN PRN Reason: fever, pain Calcium Carbonate (Calcium Carbonate 750 Mg Tab.Chew) 750 mg PO Q4H PRN PRN Reason: Heartburn Last Admin: 08/10/22 19:20 Dose: 750 mg Documented By: SHANTI Heparin Sodium (Porcine) (Heparin Sodium,Porcine 5,000 Unit/Ml Vial) 5,000 unit SUBCUT Q8H [facility] Last Admin: 09/07/22 14:20 Dose: 5,000 unit Documented By: GEORGE Hydromorphone HCl (Hydromorphone Hcl 0.5 Mg/0.5 Ml Syringe) 0.5 mg IVPUSH Q4H PRN; Protocol PRN Reason: Pain, Severe (Pain Scale 7-10) Last Admin: 09/07/22 14:19 Dose: 0.5 mg Documented By: GEORGE Promethazine HCl 12.5 mg/ (Sodium Chloride) 50.5 mls @ 202 mls/hr IV Q6H PRN PRN Reason: nausea/vomiting Last Infusion: 09/07/22 09:12 Dose: 0 mls/hr Documented By: GEORGE Lorazepam (Lorazepam 0.5 Mg Tablet) 0.25 mg PO Q8H PRN PRN Reason: Severe anxiety Magnesium Oxide (Magnesium Oxide 400 Mg Tablet) 400 mg PO DAILY [facility] Last Admin: 09/07/22 08:37 Dose: 400 mg Documented By: GEORGE Metoprolol Tartrate (Metoprolol Tartrate 25 Mg Tablet) 75 mg PO TID [facility]; Protocol Last Admin: 09/07/22 14:19 Dose: 75 mg Documented By: GEORGE Pt Own (Pantoprazole [Protonix] 40 Mg Tablet,Delayed Release (Dr/Ec)) 40 mg PO BID@0630,1630 [facility] Last Admin: 09/07/22 08:37 Dose: 40 mg Documented By: GEORGE Ondansetron HCl (Ondansetron Hcl 4 Mg/2 Ml Vial) 4 mg IVPUSH Q4H PRN PRN Reason: Nausea and Vomiting Last Admin: 09/07/22 14:19 Dose: 4 mg Documented By: GEORGE Pharmacy Consult (Consult Rx Perform Med Rec) 1 each MISCELLANE ONCE PRN PRN Reason: Consult order Scopolamine (Scopolamine 1.5 Mg Patch.Td.3) 1.5 mg EAR-BEHIND Q72H [facility] Last Admin: 09/05/22 09:21 Dose: 1.5 mg Documented By: MALU Sodium Chloride (0.9 % Sodium Chloride Flush 3 Ml Syringe) 3 ml IVFLUSH QSHIFT [facility] Last Admin: 09/07/22 15:31 Dose: Not Given Documented By: GEORGE Non-Admin Reason: Previously Administered Sumatriptan Succinate (Sumatriptan Succinate 50 Mg Tablet) 50 mg PO DAILY PRN PRN Reason: Headache Last Admin: 08/24/22 21:37 Dose: 50 mg Documented By: JOSELUIS Labs CBC & Chem 7: 09/04/22 11:05 09/04/22 11:05 Procedures Date of Service Date of Service: 09/07/22 Progress Note: A&P Assessment and plan (1) Intra-abdominal abscess: Status: Acute Assessment and Plan: Patient continues with nausea but does respond to current medications. Protonix 40 mg b.i.d. started yesterday. Nausea may be due to gastroparesis or residual fluid collections. She continues to ambulate short distances. She was encouraged to continue ambulating. The left ring continues to produce purulent appearing fluid discharge. No drainage is noted in the right drain. Time Spent With Patient Time: Total time managing care of this patient today ____ minutes. Quality Stroke Does the patient have a stroke diagnosis?: No VTE Prior VTE?: No VTE Risk Level:: Medical - moderate - high VTE Device Contraindication: N/A - Device Ordered VTE Drug Contraindication: N/A - Med Ordered
--- NOTE | 2022-09-07 18:08 | PC.NURSE ---
R NOHEMI drain after re-rolling for more vacuum produced 25ml of vuong purulent drainage and continues to slowly drain. Some of the drainage in the line appears slightly sanguineous. L NOHEMI drain produced 5ml vuong purulent drainage.
[2022-09-07 19:51] VITALS: BP 131/62; PULSE 87; RESP 18; TEMP 36.6; O2SAT 96
[2022-09-07] MEDS: LORazepam 0.5 MG TABLET 0.25 MG PO (21:30)
[2022-09-08] MEDS: ondansetron HCL 4 MG/2 ML VIAL IVPUSH ×6 (02:31→22:50)
[2022-09-08] MEDS: HYDROmorphone HCl 0.5 MG/0.5 ML SYRINGE IVPUSH ×6 (02:31→22:49)
[2022-09-08] MEDS: 0.9 % Sodium Chloride Flush 3 ML SYRINGE IVFLUSH ×4 (02:39→22:50)
[2022-09-08 03:49] VITALS: BP 141/67; PULSE 79; RESP 18; TEMP 36.8; O2SAT 93
[2022-09-08] MEDS: Heparin Sodium,Porcine 5,000 UNIT/ML VIAL 5000 UNIT SUBCUT ×3 (06:34→22:49)
[2022-09-08 08:00] VITALS: BP 139/70; PULSE 89; RESP 18; TEMP 36.7; O2SAT 95
[2022-09-08 10:47] VITALS: BP 139/70; PULSE 89; O2SAT 95
[2022-09-08] MEDS: Scopolamine 1.5 MG PATCH.TD.3 EAR-BEHIND (10:52)
[2022-09-08] MEDS: Magnesium Oxide 400 MG TABLET PO (10:52)
[2022-09-08] MEDS: Metoprolol Tartrate 25 MG TABLET 75 MG PO ×3 (10:52→21:19)
--- NOTE | 2022-09-08 11:27 | MHC.CLN ---
F/U PO INTAKE 50-100% PERIODS OF NAUSEA NOTED DIET RX:REGULAR PT PREFERS ENSURE PLUS SUPPLEMENT; RE-STARTED 08/23 ENSURE BID PROVIDES 700 KCALS, 40 G PROTEIN WITH 100% ACCEPTANCE CONTINUE TO FOLLOW FOR INTAKE, WEIGHT, DIET TOLERANCE
--- NOTE | 2022-09-08 12:33 | P.PNGS_ITS ---
Subjective Subjective Date of Service: 09/08/22 Interval history: Continues to receive zofran and phenergan around the clock for her nausea but she has been finishing most of meals. Washed hair at sink with PT, very tired afterwards. Physical Exam Vital Signs: Vital Signs: Last Vital Signs Temp 98.0 F 09/08/22 08:00 Pulse 89 09/08/22 10:47 Resp 18 09/08/22 08:00 BP 139/70 09/08/22 10:47 Pulse Ox 95 09/08/22 10:47 O2 Del Method 09/08/22 08:00 O2 Flow Rate 1.0 08/12/22 19:30 BMI result Body Mass Index 27.7 Const: General: alert and tired appearing Orientation/consciousness: patient oriented x3 Resp: Effort & Inspection: normal respiratory effort GI: Other: L drain bulb continues with purulent output; ostomy with stool in appliance Inspection: No distended and Yes incision (clean) Palpation (GI): Soft to palpation, Tenderness to palpation present (GI) (mild diffuse tenderness), no guarding and not rigid Skin: General skin exam: no rashes or lesions noted Neuro: General: patient oriented x3 and moves all extremities Extrem: General: Yes no clubbing, cyanosis or edema Objective Data Active Medications Acetaminophen (Acetaminophen 325 Mg Tablet) 650 mg PO Q6H PRN PRN Reason: fever, pain Calcium Carbonate (Calcium Carbonate 750 Mg Tab.Chew) 750 mg PO Q4H PRN PRN Reason: Heartburn Last Admin: 08/10/22 19:20 Dose: 750 mg Documented By: SHANTI Heparin Sodium (Porcine) (Heparin Sodium,Porcine 5,000 Unit/Ml Vial) 5,000 unit SUBCUT Q8H [facility] Last Admin: 09/08/22 06:34 Dose: 5,000 unit Documented By: SHANTI Hydromorphone HCl (Hydromorphone Hcl 0.5 Mg/0.5 Ml Syringe) 0.5 mg IVPUSH Q4H PRN; Protocol PRN Reason: Pain, Severe (Pain Scale 7-10) Last Admin: 09/08/22 10:49 Dose: 0.5 mg Documented By: SALO Promethazine HCl 12.5 mg/ (Sodium Chloride) 50.5 mls @ 202 mls/hr IV Q6H PRN PRN Reason: nausea/vomiting Last Admin: 09/08/22 12:21 Dose: 202 mls/hr Documented By: SALO Lorazepam (Lorazepam 0.5 Mg Tablet) 0.25 mg PO Q8H PRN PRN Reason: Severe anxiety Last Admin: 09/07/22 21:30 Dose: 0.25 mg Documented By: SHANTI Magnesium Oxide (Magnesium Oxide 400 Mg Tablet) 400 mg PO DAILY [facility] Last Admin: 09/08/22 10:52 Dose: 400 mg Documented By: SALO Metoprolol Tartrate (Metoprolol Tartrate 25 Mg Tablet) 75 mg PO TID [facility]; Protocol Last Admin: 09/08/22 10:52 Dose: 75 mg Documented By: SALO Pt Own (Pantoprazole [Protonix] 40 Mg Tablet,Delayed Release (Dr/Ec)) 40 mg PO BID@0630,1630 [facility] Last Admin: 09/08/22 07:17 Dose: Not Given Documented By: SHANTI Non-Admin Reason: Med Not Available Ondansetron HCl (Ondansetron Hcl 4 Mg/2 Ml Vial) 4 mg IVPUSH Q4H PRN PRN Reason: Nausea and Vomiting Last Admin: 09/08/22 10:49 Dose: 4 mg Documented By: SALO Pharmacy Consult (Consult Rx Perform Med Rec) 1 each MISCELLANE ONCE PRN PRN Reason: Consult order Scopolamine (Scopolamine 1.5 Mg Patch.Td.3) 1.5 mg EAR-BEHIND Q72H [facility] Last Admin: 09/08/22 10:52 Dose: 1.5 mg Documented By: SALO Sodium Chloride (0.9 % Sodium Chloride Flush 3 Ml Syringe) 3 ml IVFLUSH QSHIFT [facility] Last Admin: 09/08/22 10:49 Dose: 3 ml Documented By: SALO Sumatriptan Succinate (Sumatriptan Succinate 50 Mg Tablet) 50 mg PO DAILY PRN PRN Reason: Headache Last Admin: 08/24/22 21:37 Dose: 50 mg Documented By: JOSELUIS Labs CBC & Chem 7: 09/04/22 11:05 09/04/22 11:05 Procedures Date of Service Date of Service: 09/08/22 Progress Note: A&P Assessment and plan (1) Intra-abdominal abscess: Status: Acute Plan Patient continues with nausea requiring multiple antiemetics but able to eat most of meals yesterday. Will therefore dc IVF. Protonix 40 mg b.i.d. started earlier this week but not given today. Has chronic nausea- may be due to gastroparesis exacerbated by fluid collections. Now able to perform some daily activity but with fatigue. She was encouraged to continue ambulating, PT. ?Repeat CT scan next week to assess fluid collections. Time Spent With Patient Time: Total time managing care of this patient today ____ minutes. Quality Stroke Does the patient have a stroke diagnosis?: No VTE Prior VTE?: No VTE Risk Level:: Medical - moderate - high VTE Device Contraindication: N/A - Device Ordered VTE Drug Contraindication: N/A - Med Ordered
[2022-09-08 16:56] VITALS: BP 139/70; PULSE 81; RESP 20; TEMP 36.6; O2SAT 95
[2022-09-08 17:11] VITALS: BMI 26.1
[2022-09-08 19:43] VITALS: BP 143/67; PULSE 81; RESP 20; TEMP 36.7; O2SAT 92
[2022-09-09] MEDS: ondansetron HCL 4 MG/2 ML VIAL IVPUSH ×6 (02:48→22:32)
[2022-09-09] MEDS: HYDROmorphone HCl 0.5 MG/0.5 ML SYRINGE IVPUSH ×6 (02:48→22:32)
[2022-09-09 04:00] VITALS: BP 123/70; PULSE 84; RESP 18; TEMP 37.1; O2SAT 97
[2022-09-09] MEDS: Heparin Sodium,Porcine 5,000 UNIT/ML VIAL 5000 UNIT SUBCUT ×3 (06:50→22:32)
[2022-09-09 08:00] VITALS: BP 152/75; PULSE 92; RESP 18; TEMP 36.6; O2SAT 96
[2022-09-09] MEDS: Metoprolol Tartrate 25 MG TABLET 75 MG PO ×3 (08:46→21:09)
[2022-09-09] MEDS: Magnesium Oxide 400 MG TABLET PO (08:46)
[2022-09-09] MEDS: 0.9 % Sodium Chloride Flush 3 ML SYRINGE IVFLUSH ×3 (08:48→21:11)
[2022-09-09 15:10] VITALS: BP 144/80; PULSE 84; RESP 18; TEMP 36.7; O2SAT 93
--- NOTE | 2022-09-09 15:28 | P.PNGS_ITS ---
Subjective Subjective Date of Service: 09/09/22 Interval history: pt still complaining of nausea but ate some breakfast and lunch and had just 2 episodes of short dry heaves. drinking fluids well - thirsty and holding down cold water. says foods leave bad aftertaste in her mouth walked around earlier today Physical Exam Vital Signs: Vital Signs: Last Vital Signs Temp 98.1 F 09/09/22 15:10 Pulse 84 09/09/22 15:10 Resp 18 09/09/22 15:10 BP 144/80 H 09/09/22 15:10 Pulse Ox 93 09/09/22 15:10 O2 Del Method 09/09/22 15:10 O2 Flow Rate 1.0 08/12/22 19:30 BMI result Body Mass Index 26.1 Const: General: cooperative, alert, awake and Physically active GI: Other: abdo soft - rlq area tender over bruised area prob from anticoag shots. the ostomy putting out yellowish fluid drain on right side with some purulent material coming out Objective Data Active Medications Acetaminophen (Acetaminophen 325 Mg Tablet) 650 mg PO Q6H PRN PRN Reason: fever, pain Calcium Carbonate (Calcium Carbonate 750 Mg Tab.Chew) 750 mg PO Q4H PRN PRN Reason: Heartburn Last Admin: 08/10/22 19:20 Dose: 750 mg Documented By: SHANTI Heparin Sodium (Porcine) (Heparin Sodium,Porcine 5,000 Unit/Ml Vial) 5,000 unit SUBCUT Q8H [facility] Last Admin: 09/09/22 14:05 Dose: 5,000 unit Documented By: CITLALI Hydromorphone HCl (Hydromorphone Hcl 0.5 Mg/0.5 Ml Syringe) 0.5 mg IVPUSH Q4H PRN; Protocol PRN Reason: Pain, Severe (Pain Scale 7-10) Last Admin: 09/09/22 14:38 Dose: 0.5 mg Documented By: CITLALI Promethazine HCl 12.5 mg/ (Sodium Chloride) 50.5 mls @ 202 mls/hr IV Q6H PRN PRN Reason: nausea/vomiting Last Infusion: 09/09/22 09:28 Dose: 202 mls/hr Documented By: CITLALI Lorazepam (Lorazepam 0.5 Mg Tablet) 0.25 mg PO Q8H PRN PRN Reason: Severe anxiety Last Admin: 09/07/22 21:30 Dose: 0.25 mg Documented By: ODRISM Magnesium Oxide (Magnesium Oxide 400 Mg Tablet) 400 mg PO DAILY [facility] Last Admin: 09/09/22 08:46 Dose: 400 mg Documented By: CITLALI Metoprolol Tartrate (Metoprolol Tartrate 25 Mg Tablet) 75 mg PO TID [facility]; Protocol Last Admin: 09/09/22 14:06 Dose: 75 mg Documented By: CITLALI Pt Own (Pantoprazole [Protonix] 40 Mg Tablet,Delayed Release (Dr/Ec)) 40 mg PO BID@0630,1630 [facility] Last Admin: 09/09/22 06:51 Dose: 40 mg Documented By: JOSELUIS Ondansetron HCl (Ondansetron Hcl 4 Mg/2 Ml Vial) 4 mg IVPUSH Q4H PRN PRN Reason: Nausea and Vomiting Last Admin: 09/09/22 14:39 Dose: 4 mg Documented By: CITLALI Oxycodone HCl (Oxycodone Hcl Immed Release 5 Mg Tablet) 5 mg PO Q4H PRN PRN Reason: Pain, Moderate (Pain Scale 4-6 Oxycodone HCl (Oxycodone Hcl Immed Release 5 Mg Tablet) 10 mg PO Q4H PRN PRN Reason: Pain, Severe (Pain Scale 7-10) Pharmacy Consult (Consult Rx Perform Med Rec) 1 each MISCELLANE ONCE PRN PRN Reason: Consult order Scopolamine (Scopolamine 1.5 Mg Patch.Td.3) 1.5 mg EAR-BEHIND Q72H [facility] Last Admin: 09/08/22 10:52 Dose: 1.5 mg Documented By: SALO Sodium Chloride (0.9 % Sodium Chloride Flush 3 Ml Syringe) 3 ml IVFLUSH QSHIFT [facility] Last Admin: 09/09/22 08:48 Dose: 3 ml Documented By: CITLALI Sumatriptan Succinate (Sumatriptan Succinate 50 Mg Tablet) 50 mg PO DAILY PRN PRN Reason: Headache Last Admin: 08/24/22 21:37 Dose: 50 mg Documented By: JOSELUIS Labs CBC & Chem 7: 09/04/22 11:05 09/04/22 11:05 Procedures Date of Service Date of Service: 09/09/22 Progress Note: A&P Assessment and plan (1) S/P colectomy: Status: Acute Assessment and Plan: overall she looks improved nausea still an issue -- on phenergan, protonix, scopolamine patch she has been eating though and not throwing up food - ostomy output good ins/out seem even so just encourage po liquids to stay hydrated - no need for iv supplementation cont with drains ambulate Time Spent With Patient Time: Total time managing care of this patient today ____ minutes. Quality Stroke Does the patient have a stroke diagnosis?: No VTE Prior VTE?: No VTE Risk Level:: Medical - moderate - high VTE Device Contraindication: N/A - Device Ordered VTE Drug Contraindication: N/A - Med Ordered
--- NOTE | 2022-09-09 16:23 | PC.NURSE ---
pt refusing sequentials stockings,risks explained,activity encouraged,Dr. Thurman notified
[2022-09-09 19:15] VITALS: BP 122/67; PULSE 85; RESP 18; TEMP 36.8; O2SAT 97
[2022-09-10] MEDS: ondansetron HCL 4 MG/2 ML VIAL IVPUSH ×6 (02:33→22:43)
[2022-09-10] MEDS: HYDROmorphone HCl 0.5 MG/0.5 ML SYRINGE IVPUSH ×6 (02:33→22:43)
[2022-09-10 04:00] VITALS: BP 124/77; PULSE 88; RESP 16; TEMP 36.6; O2SAT 95
[2022-09-10] MEDS: Heparin Sodium,Porcine 5,000 UNIT/ML VIAL 5000 UNIT SUBCUT ×3 (06:46→22:43)
[2022-09-10 08:00] VITALS: BP 164/84; PULSE 96; RESP 18; TEMP 36.4; O2SAT 95
[2022-09-10] MEDS: Magnesium Oxide 400 MG TABLET PO (09:24)
[2022-09-10] MEDS: Metoprolol Tartrate 25 MG TABLET 75 MG PO ×3 (09:24→21:35)
[2022-09-10] MEDS: 0.9 % Sodium Chloride Flush 3 ML SYRINGE IVFLUSH ×3 (09:24→21:35)
--- NOTE | 2022-09-10 14:24 | P.PNGS_ITS ---
Subjective Subjective Date of Service: 09/10/22 Interval history: pt is complaining of worse nausea today - has been taking po intake though and good output. she says oxycodone gives worse nausea she doesnt want to take less dilaudid even though enocuraged to spread out time interval pt with phenergan and zofran for meds yemi drains with small amount draining Physical Exam Vital Signs: Vital Signs: Last Vital Signs Temp 97.5 F 09/10/22 08:00 Pulse 96 09/10/22 08:00 Resp 18 09/10/22 08:00 BP 164/84 H 09/10/22 08:00 Pulse Ox 95 09/10/22 08:00 O2 Del Method 09/10/22 08:00 O2 Flow Rate 1.0 08/12/22 19:30 BMI result Body Mass Index 26.1 Const: Other: looks tired and more miserable today GI: Other: abdo benign - baseline ostomy with output Objective Data Active Medications Acetaminophen (Acetaminophen 325 Mg Tablet) 650 mg PO Q6H PRN PRN Reason: fever, pain Calcium Carbonate (Calcium Carbonate 750 Mg Tab.Chew) 750 mg PO Q4H PRN PRN Reason: Heartburn Last Admin: 08/10/22 19:20 Dose: 750 mg Documented By: SHANTI Heparin Sodium (Porcine) (Heparin Sodium,Porcine 5,000 Unit/Ml Vial) 5,000 unit SUBCUT Q8H [facility] Last Admin: 09/10/22 06:46 Dose: 5,000 unit Documented By: SHANTI Hydromorphone HCl (Hydromorphone Hcl 0.5 Mg/0.5 Ml Syringe) 0.5 mg IVPUSH Q4H PRN; Protocol PRN Reason: Pain, Severe (Pain Scale 7-10) Last Admin: 09/10/22 10:39 Dose: 0.5 mg Documented By: SALO Promethazine HCl 12.5 mg/ (Sodium Chloride) 50.5 mls @ 202 mls/hr IV Q6H PRN PRN Reason: nausea/vomiting Last Infusion: 09/10/22 12:58 Dose: 0 mls/hr Documented By: SALO Lorazepam (Lorazepam 0.5 Mg Tablet) 0.25 mg PO Q8H PRN PRN Reason: Severe anxiety Last Admin: 09/07/22 21:30 Dose: 0.25 mg Documented By: SHANTI Magnesium Oxide (Magnesium Oxide 400 Mg Tablet) 400 mg PO DAILY [facility] Last Admin: 09/10/22 09:24 Dose: 400 mg Documented By: SALO Metoprolol Tartrate (Metoprolol Tartrate 25 Mg Tablet) 75 mg PO TID [facility]; Protocol Last Admin: 09/10/22 09:24 Dose: 75 mg Documented By: SALO Pt Own (Pantoprazole [Protonix] 40 Mg Tablet,Delayed Release (Dr/Ec)) 40 mg PO BID@0630,1630 [facility] Last Admin: 09/10/22 06:32 Dose: 40 mg Documented By: SHANTI Ondansetron HCl (Ondansetron Hcl 4 Mg/2 Ml Vial) 4 mg IVPUSH Q4H PRN PRN Reason: Nausea and Vomiting Last Admin: 09/10/22 10:38 Dose: 4 mg Documented By: SALO Oxycodone HCl (Oxycodone Hcl Immed Release 5 Mg Tablet) 5 mg PO Q4H PRN PRN Reason: Pain, Moderate (Pain Scale 4-6 Oxycodone HCl (Oxycodone Hcl Immed Release 5 Mg Tablet) 10 mg PO Q4H PRN PRN Reason: Pain, Severe (Pain Scale 7-10) Pharmacy Consult (Consult Rx Perform Med Rec) 1 each MISCELLANE ONCE PRN PRN Reason: Consult order Scopolamine (Scopolamine 1.5 Mg Patch.Td.3) 1.5 mg EAR-BEHIND Q72H [facility] Last Admin: 09/08/22 10:52 Dose: 1.5 mg Documented By: SALO Sodium Chloride (0.9 % Sodium Chloride Flush 3 Ml Syringe) 3 ml IVFLUSH QSHIFT [facility] Last Admin: 09/10/22 09:24 Dose: 3 ml Documented By: SALO Sumatriptan Succinate (Sumatriptan Succinate 50 Mg Tablet) 50 mg PO DAILY PRN PRN Reason: Headache Last Admin: 08/24/22 21:37 Dose: 50 mg Documented By: JOSELUIS Labs CBC & Chem 7: 09/04/22 11:05 09/04/22 11:05 Procedures Date of Service Date of Service: 09/10/22 Progress Note: A&P Assessment and plan (1) S/P colectomy: Status: Acute Assessment and Plan: pt with long med history here- still with nausea worse today but tolerating po diet and having ostomy output. on meds for nausea - phenergan and zofran and does not want to decrease pain meds. tomorrow ambulate with pt Time Spent With Patient Time: Total time managing care of this patient today ____ minutes. Quality Stroke Does the patient have a stroke diagnosis?: No VTE Prior VTE?: No VTE Risk Level:: Medical - moderate - high VTE Device Contraindication: N/A - Device Ordered VTE Drug Contraindication: N/A - Med Ordered
[2022-09-10 20:00] VITALS: BP 136/65; PULSE 87; RESP 18; TEMP 37.1; O2SAT 96
[2022-09-11] MEDS: HYDROmorphone HCl 0.5 MG/0.5 ML SYRINGE IVPUSH ×6 (02:41→22:41)
[2022-09-11] MEDS: ondansetron HCL 4 MG/2 ML VIAL IVPUSH ×6 (02:41→22:41)
[2022-09-11 03:52] VITALS: BP 140/73; PULSE 81; RESP 18; TEMP 36.6; O2SAT 96
[2022-09-11] MEDS: Heparin Sodium,Porcine 5,000 UNIT/ML VIAL 5000 UNIT SUBCUT ×3 (06:14→22:46)
[2022-09-11 08:00] VITALS: BP 132/72; PULSE 87; RESP 18; TEMP 36.8; O2SAT 96
[2022-09-11] MEDS: Metoprolol Tartrate 25 MG TABLET 75 MG PO ×3 (10:07→22:27)
[2022-09-11] MEDS: Magnesium Oxide 400 MG TABLET PO (10:07)
[2022-09-11] MEDS: 0.9 % Sodium Chloride Flush 3 ML SYRINGE IVFLUSH ×2 (10:07→17:10)
[2022-09-11] MEDS: Scopolamine 1.5 MG PATCH.TD.3 EAR-BEHIND (10:08)
--- NOTE | 2022-09-11 12:17 | P.PNGS_ITS ---
Subjective Subjective Date of Service: 09/11/22 Interval history: still nauseated hasnt walked this afternoon has had dry heaving and small vomiting since yesterday but still holding down most liquid Physical Exam Vital Signs: Vital Signs: Last Vital Signs Temp 98.2 F 09/11/22 08:00 Pulse 87 09/11/22 08:00 Resp 18 09/11/22 08:00 BP 132/72 09/11/22 08:00 Pulse Ox 96 09/11/22 08:00 O2 Del Method 09/11/22 08:00 O2 Flow Rate 1.0 08/12/22 19:30 BMI result Body Mass Index 26.1 GI: Other: abdo - benign good functioning ostomy right drain with purulent material - coming out Objective Data Active Medications Acetaminophen (Acetaminophen 325 Mg Tablet) 650 mg PO Q6H PRN PRN Reason: fever, pain Calcium Carbonate (Calcium Carbonate 750 Mg Tab.Chew) 750 mg PO Q4H PRN PRN Reason: Heartburn Last Admin: 08/10/22 19:20 Dose: 750 mg Documented By: SHANTI Heparin Sodium (Porcine) (Heparin Sodium,Porcine 5,000 Unit/Ml Vial) 5,000 unit SUBCUT Q8H [facility] Last Admin: 09/11/22 06:14 Dose: 5,000 unit Documented By: SHANTI Hydromorphone HCl (Hydromorphone Hcl 0.5 Mg/0.5 Ml Syringe) 0.5 mg IVPUSH Q4H PRN; Protocol PRN Reason: Pain, Severe (Pain Scale 7-10) Last Admin: 09/11/22 10:45 Dose: 0.5 mg Documented By: SALO Promethazine HCl 12.5 mg/ (Sodium Chloride) 50.5 mls @ 202 mls/hr IV Q6H PRN PRN Reason: nausea/vomiting Last Infusion: 09/11/22 07:05 Dose: 0 mls/hr Documented By: SHANTI Magnesium Oxide (Magnesium Oxide 400 Mg Tablet) 400 mg PO DAILY [facility] Last Admin: 09/11/22 10:07 Dose: 400 mg Documented By: SALO Metoprolol Tartrate (Metoprolol Tartrate 25 Mg Tablet) 75 mg PO TID [facility]; Pro tocol Last Admin: 09/11/22 10:07 Dose: 75 mg Documented By: SALO Pt Own (Pantoprazole [Protonix] 40 Mg Tablet,Delayed Release (Dr/Ec)) 40 mg PO BID@0630,1630 [facility] Last Admin: 09/11/22 05:33 Dose: Not Given Documented By: SHANTI Non-Admin Reason: Med Not Available Ondansetron HCl (Ondansetron Hcl 4 Mg/2 Ml Vial) 4 mg IVPUSH Q4H PRN PRN Reason: Nausea and Vomiting Last Admin: 09/11/22 10:44 Dose: 4 mg Documented By: SALO Oxycodone HCl (Oxycodone Hcl Immed Release 5 Mg Tablet) 10 mg PO Q4H PRN PRN Reason: Pain, Severe (Pain Scale 7-10) Pharmacy Consult (Consult Rx Perform Med Rec) 1 each MISCELLANE ONCE PRN PRN Reason: Consult order Scopolamine (Scopolamine 1.5 Mg Patch.Td.3) 1.5 mg EAR-BEHIND Q72H [facility] Last Admin: 09/11/22 10:08 Dose: 1.5 mg Documented By: SALO Sodium Chloride (0.9 % Sodium Chloride Flush 3 Ml Syringe) 3 ml IVFLUSH QSHIFT [facility] Last Admin: 09/11/22 10:07 Dose: 3 ml Documented By: SALO Sumatriptan Succinate (Sumatriptan Succinate 50 Mg Tablet) 50 mg PO DAILY PRN PRN Reason: Headache Last Admin: 08/24/22 21:37 Dose: 50 mg Documented By: JOSELUIS Labs CBC & Chem 7: 09/04/22 11:05 09/04/22 11:05 Procedures Date of Service Date of Service: 09/11/22 Progress Note: A&P Assessment and plan (1) S/P colectomy: Status: Acute Assessment and Plan: main issue cont to be nausea - ? etiology - worse due to intrabdo collection but being treated with successful drainage and iv antibx cont with meds - phenergan and zofran need aggressive PT to ambulate and move try to encourage getting off some of the pain meds but pt quite dependent on it will check labs for tomorrow Time Spent With Patient Time: Total time managing care of this patient today ____ minutes. Quality Stroke Does the patient have a stroke diagnosis?: No VTE Prior VTE?: No VTE Risk Level:: Medical - moderate - high VTE Device Contraindication: N/A - Device Ordered VTE Drug Contraindication: N/A - Med Ordered
[2022-09-11 15:45] VITALS: BP 136/68; PULSE 90; RESP 16; TEMP 36.7; O2SAT 94
[2022-09-11 19:35] VITALS: BP 133/67; PULSE 85; RESP 16; TEMP 36.6; O2SAT 94
[2022-09-12] MEDS: HYDROmorphone HCl 0.5 MG/0.5 ML SYRINGE IVPUSH ×5 (02:38→19:59)
[2022-09-12] MEDS: ondansetron HCL 4 MG/2 ML VIAL IVPUSH ×2 (02:39→06:43)
[2022-09-12] MEDS: 0.9 % Sodium Chloride Flush 3 ML SYRINGE IVFLUSH ×4 (02:47→19:57)
[2022-09-12 03:41] VITALS: BP 128/68; PULSE 82; RESP 14; TEMP 36.6; O2SAT 94
[2022-09-12 06:01] LABS: MANUAL DIFF FLAG NO
[2022-09-12 06:18] LABS: Basophils Percent Auto 0.3 % (0-2); Eosinophils Percent Auto 0.6 % (0-4); Hematocrit 34.5 % (37.0-47.0); Hemoglobin 11.2 g/dl (12.0-16.0); Imm Gran Abs Auto 0.05 X10*3/uL (0.00-0.03); Imm Gran Pct Auto 0.7 % (0.0-0.4); Lymphocytes Absolute Auto 1.7 X10*3/uL (1.2-4.9); Lymphocytes Percent Auto 24.8 % (20-40); Mean Corpuscular HGB Conc 32.5 g/dl (31.0-35.0); Mean Corpuscular Hemoglobin 27.9 pg (27.0-33.0); Mean Platelet Volume 9.5 fL (9.4-12.3); Monocytes Absolute Auto 0.6 X10*3/uL (0.1-1.2); Neutrophils Absolute Auto 4.5 x10*3/uL (2.0-8.3); Neutrophils Percent Auto 65.6 % (45-73); Platelet Count 280 X10*3/uL (160-400); Red Blood Count 4.01 X10*6/uL (4.20-5.50); Red Cell Distribution Width 13.2 % (11.0-16.0); White Blood Count 6.9 X10*3/uL (4.8-10.8)
[2022-09-12 06:27] LABS: Alanine Aminotransferase 7 U/L (0-31); Alkaline Phosphatase 158 U/L (39-117); Anion Gap 16 (12-20); Aspartate Amino Transferase 14 U/L (5-31); Bilirubin Total 0.4 mg/dL (0.0-1.0); Blood Urea Nitrogen 8 mg/dL (9-16); Calcium 9.9 mg/dL (8.4-10.2); Carbon Dioxide 28 mmol/L (22-29); Chloride 98 mmol/L (96-108); Creatinine Clr Calc Pharmacy 100.4; Estimated Glomerular Filt Rate > 60; Glucose Random 81 mg/dL (60-115); Potassium 3.5 mmol/L (3.3-5.1); Sodium 138 mmol/L (135-145)
[2022-09-12 06:30] LABS: Phosphorus 4.3 mg/dL (2.7-4.5)
[2022-09-12] MEDS: Heparin Sodium,Porcine 5,000 UNIT/ML VIAL 5000 UNIT SUBCUT ×3 (06:43→22:21)
[2022-09-12] MEDS: Magnesium Sulfate/H2O 2 GM/50 ML PIGGYBACK IV (06:54)
[2022-09-12 08:00] VITALS: BP 136/66; PULSE 89; RESP 18; TEMP 36.6; O2SAT 96
[2022-09-12] MEDS: Metoprolol Tartrate 25 MG TABLET 75 MG PO ×3 (08:51→19:59)
[2022-09-12] MEDS: Magnesium Oxide 400 MG TABLET PO (08:52)
--- NOTE | 2022-09-12 09:02 | P.PNGS_ITS ---
Subjective Subjective Date of Service: 09/13/22 Interval history: feels well this morning no nausea at this time however, she still has this frequent episodes of dry heaving and some vomiting stoma continues to function well Physical Exam Vital Signs: Vital Signs: Last Vital Signs Temp 97.9 F 09/12/22 08:00 Pulse 89 09/12/22 08:00 Resp 18 09/12/22 08:00 BP 136/66 09/12/22 08:00 Pulse Ox 96 09/12/22 08:00 O2 Del Method 09/12/22 08:00 O2 Flow Rate 1.0 08/12/22 19:30 BMI result Body Mass Index 26.1 Const: General: comfortable and no acute distress Resp: Effort & Inspection: normal respiratory effort Cardio: Rate: regular rate GI: Other: right sided drain with significant output , left-sided drain without any output, stoma functioning with good output Palpation (GI): Soft to palpation, not firm and no guarding Objective Data Active Medications Acetaminophen (Acetaminophen 325 Mg Tablet) 650 mg PO Q6H PRN PRN Reason: fever, pain Calcium Carbonate (Calcium Carbonate 750 Mg Tab.Chew) 750 mg PO Q4H PRN PRN Reason: Heartburn Last Admin: 08/10/22 19:20 Dose: 750 mg Documented By: SHANTI Heparin Sodium (Porcine) (Heparin Sodium,Porcine 5,000 Unit/Ml Vial) 5,000 unit SUBCUT Q8H [facility] Last Admin: 09/12/22 06:43 Dose: 5,000 unit Documented By: MANUEL Hydromorphone HCl (Hydromorphone Hcl 0.5 Mg/0.5 Ml Syringe) 0.5 mg IVPUSH Q4H PRN; Protocol PRN Reason: Pain, Severe (Pain Scale 7-10) Last Admin: 09/12/22 06:43 Dose: 0.5 mg Documented By: MANUEL Promethazine HCl 12.5 mg/ (Sodium Chloride) 50.5 mls @ 202 mls/hr IV Q6H PRN PRN Reason: nausea/vomiting Last Infusion: 09/11/22 17:25 Dose: 0 mls/hr Documented By: SALO Magnesium Oxide (Magnesium Oxide 400 Mg Tablet) 400 mg PO DAILY [facility] Last Admin: 09/12/22 08:52 Dose: 400 mg Documented By: MIRNA Metoprolol Tartrate (Metoprolol Tartrate 25 Mg Tablet) 75 mg PO TID [facility]; Protocol Last Admin: 09/12/22 08:51 Dose: 75 mg Documented By: MIRNA Pt Own (Pantoprazole [Protonix] 40 Mg Tablet,Delayed Release (Dr/Ec)) 40 mg PO BID@0630,1630 [facility] Last Admin: 09/12/22 06:53 Dose: 40 mg Documented By: MANUEL Ondansetron HCl (Ondansetron Hcl 4 Mg/2 Ml Vial) 4 mg IVPUSH Q4H PRN PRN Reason: Nausea and Vomiting Last Admin: 09/12/22 06:43 Dose: 4 mg Documented By: MANUEL Oxycodone HCl (Oxycodone Hcl Immed Release 5 Mg Tablet) 10 mg PO Q4H PRN PRN Reason: Pain, Severe (Pain Scale 7-10) Pharmacy Consult (Consult Rx Perform Med Rec) 1 each MISCELLANE ONCE PRN PRN Reason: Consult order Scopolamine (Scopolamine 1.5 Mg Patch.Td.3) 1.5 mg EAR-BEHIND Q72H [facility] Last Admin: 09/11/22 10:08 Dose: 1.5 mg Documented By: SALO Sodium Chloride (0.9 % Sodium Chloride Flush 3 Ml Syringe) 3 ml IVFLUSH QSHIFT [facility] Last Admin: 09/12/22 08:52 Dose: 3 ml Documented By: MIRNA Sumatriptan Succinate (Sumatriptan Succinate 50 Mg Tablet) 50 mg PO DAILY PRN PRN Reason: Headache Last Admin: 08/24/22 21:37 Dose: 50 mg Documented By: JOSELUIS Labs CBC & Chem 7: 09/12/22 05:36 09/12/22 05:36 Labs: Laboratory Results - last 24 hr 09/12/22 09/12/22 09/12/22 05:36 05:36 05:36 MCV 86.0 MCH 27.9 MCHC 32.5 RDW 13.2 Plt Count 280 MPV 9.5 Immature Gran % (Auto) 0.7 H Neut % (Auto) 65.6 Lymph % (Auto) 24.8 [place] % (Auto) 8.0 Eos % (Auto) 0.6 Baso % (Auto) 0.3 Lymph # (Auto) 1.7 [place] # (Auto) 0.6 Eos # (Auto) 0.0 Baso # (Auto) 0.0 Abs Immat Gran (auto) 0.05 H Absolute Neuts (auto) 4.5 Absolute Nucleated RBC 0.000 Nucleated RBC % (auto) 0.0 Anion Gap 16 Estim Creat Clear Calc 100.4 Estimated GFR > 60 Random Glucose 81 Calcium 9.9 Phosphorus 4.3 Magnesium 1.0 L* Total Bilirubin 0.4 AST 14 ALT 7 Alkaline Phosphatase 158 H Total Protein 6.0 L Albumin 3.0 L Procedures Date of Service Date of Service: 09/12/22 Progress Note: A&P Assessment and plan (1) Intra-abdominal abscess: Status: Acute Assessment and Plan: continues to have episodes of nausea, dry heaving, and occasional vomiting she does have a history of gastroparesis not obstructed clinically, stoma functioning well otherwise looks well will try on sublingual Zofran encouraged to continue to get out of bed Time Spent With Patient Time: Total time managing care of this patient today ____ minutes. Quality Stroke Does the patient have a stroke diagnosis?: No VTE Prior VTE?: No VTE Risk Level:: Medical - moderate - high VTE Device Contraindication: N/A - Device Ordered VTE Drug Contraindication: N/A - Med Ordered
[2022-09-12] MEDS: Ondansetron ODT 4 MG TAB.RAPDIS TRANSLINGU ×2 (15:20→22:20)
[2022-09-12 15:28] VITALS: BP 140/70; PULSE 95; RESP 18; TEMP 36.9; O2SAT 93
--- NOTE | 2022-09-12 16:40 | PM.EVENT ---
Event Note Date of Service: 09/12/22 Event Note: says she ate all her lunch had a good day today looks well restart Ensure once a day - she is willing to try this again stoma functioning well Time Spent With Patient Time: Total time managing care of this patient today ____ minutes.
[2022-09-12 19:28] VITALS: BP 131/60; PULSE 86; RESP 18; TEMP 37.1; O2SAT 94
[2022-09-13] MEDS: HYDROmorphone HCl 0.5 MG/0.5 ML SYRINGE IVPUSH ×4 (00:26→20:43)
[2022-09-13 04:00] VITALS: BP 134/73; PULSE 92; RESP 15; TEMP 36.6; O2SAT 96
[2022-09-13] MEDS: Ondansetron ODT 4 MG TAB.RAPDIS TRANSLINGU ×3 (04:52→18:18)
[2022-09-13] MEDS: Heparin Sodium,Porcine 5,000 UNIT/ML VIAL 5000 UNIT SUBCUT ×2 (05:38→15:55)
[2022-09-13 07:43] VITALS: BP 127/70; PULSE 98; RESP 18; TEMP 37; O2SAT 97
[2022-09-13] MEDS: Magnesium Oxide 400 MG TABLET PO (09:04)
[2022-09-13] MEDS: Metoprolol Tartrate 25 MG TABLET 75 MG PO ×3 (09:04→21:19)
[2022-09-13] MEDS: 0.9 % Sodium Chloride Flush 3 ML SYRINGE IVFLUSH ×2 (09:04→15:58)
--- NOTE | 2022-09-13 09:50 | P.PNGS_ITS ---
Subjective Subjective Date of Service: 09/13/22 Interval history: sitting up on chair, washing up by sink appears comfortable Still asks for IV Zofran and Dilaudid Stoma functioning well Had good oral intake yesterday Physical Exam Vital Signs: Vital Signs: Last Vital Signs Temp 98.6 F 09/13/22 07:43 Pulse 98 09/13/22 07:43 Resp 18 09/13/22 07:43 BP 127/70 09/13/22 07:43 Pulse Ox 97 09/13/22 07:43 O2 Del Method 09/13/22 07:43 O2 Flow Rate 1.0 08/12/22 19:30 BMI result Body Mass Index 26.1 Const: General: comfortable and no acute distress Resp: Effort & Inspection: normal respiratory effort Cardio: Rate: regular rate GI: Other: Stoma with good output, left-sided drain with some thick output, right sided d rain with scanty thick output Palpation (GI): Soft to palpation, not firm and no guarding Objective Data Active Medications Acetaminophen (Acetaminophen 325 Mg Tablet) 650 mg PO Q6H PRN PRN Reason: fever, pain Calcium Carbonate (Calcium Carbonate 750 Mg Tab.Chew) 750 mg PO Q4H PRN PRN Reason: Heartburn Last Admin: 08/10/22 19:20 Dose: 750 mg Documented By: SHANTI Heparin Sodium (Porcine) (Heparin Sodium,Porcine 5,000 Unit/Ml Vial) 5,000 unit SUBCUT Q8H [facility] Last Admin: 09/13/22 05:38 Dose: 5,000 unit Documented By: MANUEL Hydromorphone HCl (Hydromorphone Hcl 0.5 Mg/0.5 Ml Syringe) 0.5 mg IVPUSH Q4H PRN; Protocol PRN Reason: Pain, Severe (Pain Scale 7-10) Last Admin: 09/13/22 09:04 Dose: 0.5 mg Documented By: MIRNA Promethazine HCl 12.5 mg/ (Sodium Chloride) 50.5 mls @ 202 mls/hr IV Q6H PRN PRN Reason: nausea/vomiting Last Infusion: 09/13/22 01:47 Dose: 0 mls/hr Documented By: MANUEL Magnesium Oxide (Magnesium Oxide 400 Mg Tablet) 400 mg PO DAILY [facility] Last Admin: 09/13/22 09:04 Dose: 400 mg Documented By: MIRNA Metoprolol Tartrate (Metoprolol Tartrate 25 Mg Tablet) 75 mg PO TID [facility]; Protocol Last Admin: 09/13/22 09:04 Dose: 75 mg Documented By: MIRNA Pt Own (Pantoprazole [Protonix] 40 Mg Tablet,Delayed Release (Dr/Ec)) 40 mg PO BID@0630,1630 [facility] Last Admin: 09/13/22 04:52 Dose: 40 mg Documented By: MANUEL Ondansetron HCl (Ondansetron Odt 4 Mg Tab.Rapdis) 4 mg TRANSLINGU Q6H PRN PRN Reason: Nausea Last Admin: 09/13/22 04:52 Dose: 4 mg Documented By: MANUEL Oxycodone HCl (Oxycodone Hcl Immed Release 5 Mg Tablet) 10 mg PO Q4H PRN PRN Reason: Pain, Severe (Pain Scale 7-10) Pharmacy Consult (Consult Rx Perform Med Rec) 1 each MISCELLANE ONCE PRN PRN Reason: Consult order Scopolamine (Scopolamine 1.5 Mg Patch.Td.3) 1.5 mg EAR-BEHIND Q72H [facility] Last Admin: 09/11/22 10:08 Dose: 1.5 mg Documented By: SALO Sodium Chloride (0.9 % Sodium Chloride Flush 3 Ml Syringe) 3 ml IVFLUSH QSHIFT [facility] Last Admin: 09/13/22 09:04 Dose: 3 ml Documented By: MIRNA Sumatriptan Succinate (Sumatriptan Succinate 50 Mg Tablet) 50 mg PO DAILY PRN PRN Reason: Headache Last Admin: 08/24/22 21:37 Dose: 50 mg Documented By: JOSELUIS Labs CBC & Chem 7: 09/12/22 05:36 09/12/22 05:36 Procedures Date of Service Date of Service: 09/13/22 Progress Note: A&P Assessment and plan (1) Intra-abdominal abscess: Status: Acute Assessment and Plan: Looks well and comfortable Still as for IV pain meds as well as Zofran I had encouraged her to try using p.o. meds instead for discharge planning Push oral intake Now seems to be doing more with regards to activities out of bed The objective is for her to be able to do without any IV meds Time Spent With Patient Time: Total time managing care of this patient today ____ minutes. Quality Stroke Does the patient have a stroke diagnosis?: No VTE Prior VTE?: No VTE Risk Level:: Medical - moderate - high VTE Device Contraindication: N/A - Device Ordered VTE Drug Contraindication: N/A - Med Ordered
[2022-09-13] MEDS: oxyCODONE HCl Immed Release 5 MG TABLET 10 MG PO ×2 (13:41→18:18)
--- NOTE | 2022-09-13 14:28 | MHC.CM.PN ---
EMR REVIEWED, PER NSG PLAN TO WEAN PT OFF IV PAIN MEDS/NAUSEA MEDICATION, CM MET W/PT WHO REPORTS SHE WOULD LIKE TO D/C HOME WHEN CLEARED W/[facility] SERVICES, PT REPORTS SHE HAS NOT CHANGED HER COLOSTOMY BAG HOWEVER HAS BEEN EMPTYING IT ON HER OWN AND AMBULATING AROUND ROOM W/[facility]. PT REPORTS NO PREFERENCES OF WHICH [facility] AND PT HAS RECENTLY SEEN HER PCP AKHIL SOLARES, CM WILL PLACE [facility] REFERRALS AND CONT TO FOLLOW.
[2022-09-13 16:00] VITALS: BP 143/65; PULSE 87; RESP 16; TEMP 36.9; O2SAT 97
--- NOTE | 2022-09-13 17:36 | PM.GIPN ---
Subjective Subjective Date of Service: 09/13/22 Interval History: complains of nausea and abdominal pain Critical Care Time (minutes): 0 Physical Exam Vital Signs: Vital Signs: Last Vital Signs Temp 98.5 F 09/13/22 16:00 Pulse 87 09/13/22 16:00 Resp 16 09/13/22 16:00 BP 143/65 H 09/13/22 16:00 Pulse Ox 97 09/13/22 16:00 O2 Del Method 09/13/22 16:00 O2 Flow Rate 1.0 08/12/22 19:30 BMI result Body Mass Index 26.1 GI: Other: abdomen is soft with generalized tenderness Objective Data Labs CBC & Chem 7: 09/12/22 05:36 09/12/22 05:36 Microbiology Microbiology Results: Microbiology 08/07/22 12:05 Abdominal Fluid Gram Stain - Final 08/07/22 12:05 Abdominal Fluid Routine Culture - Final No growth after 2 days 08/07/22 12:05 Abdominal Fluid Anaerobic Culture - Final Clostridium perfringens Procedures Date of Service Date of Service: 09/13/22 Progress Note: A&P Assessment and plan (1) Nausea: Status: Acute Plan nausea may be related to abdominal collections continue antiemetics and ppi Time Spent With Patient Time: Total time managing care of this patient today ____ minutes. Quality Stroke Does the patient have a stroke diagnosis?: No VTE Prior VTE?: No VTE Risk Level:: Medical - moderate - high VTE Device Contraindication: N/A - Device Ordered VTE Drug Contraindication: N/A - Med Ordered
--- NOTE | 2022-09-13 18:38 | PC.NURSE ---
Dr Hagan advised pt and this RN that the pt should be trying to take PO pain medication to work towards discharge. Pt still complaining of nausea, has PRN ondansetron PO and phenergan IV. Pt trying oxycodone 10mg Q4H PRN with some effect.
[2022-09-13 20:00] VITALS: BP 136/70; PULSE 88; RESP 16; TEMP 36.9; O2SAT 97
[2022-09-14] MEDS: oxyCODONE HCl Immed Release 5 MG TABLET 10 MG PO ×2 (00:11→05:57)
[2022-09-14] MEDS: Ondansetron ODT 4 MG TAB.RAPDIS TRANSLINGU ×4 (00:11→21:50)
[2022-09-14] MEDS: Heparin Sodium,Porcine 5,000 UNIT/ML VIAL 5000 UNIT SUBCUT ×3 (00:12→18:28)
[2022-09-14] MEDS: 0.9 % Sodium Chloride Flush 3 ML SYRINGE IVFLUSH ×3 (00:13→18:31)
[2022-09-14 03:19] VITALS: BP 134/70; PULSE 80; RESP 16; TEMP 36.1; O2SAT 97
[2022-09-14 07:17] VITALS: BP 136/71; PULSE 92; RESP 18; TEMP 36.1; O2SAT 96
[2022-09-14] MEDS: Magnesium Oxide 400 MG TABLET PO (08:15)
[2022-09-14] MEDS: Metoprolol Tartrate 25 MG TABLET 75 MG PO ×2 (08:15→18:26)
[2022-09-14] MEDS: Scopolamine 1.5 MG PATCH.TD.3 EAR-BEHIND (08:16)
--- NOTE | 2022-09-14 08:48 | P.PNGS_ITS ---
Subjective Subjective Date of Service: 09/15/22 Interval history: Says she had vomited last night after dinner but was fine the whole day Feels well this morning Stoma functioning well Physical Exam Vital Signs: Vital Signs: Last Vital Signs Temp 97 F 09/14/22 07:17 Pulse 92 09/14/22 07:17 Resp 18 09/14/22 07:17 BP 136/71 09/14/22 07:17 Pulse Ox 96 09/14/22 07:17 O2 Del Method 09/14/22 07:17 O2 Flow Rate 1.0 08/12/22 19:30 BMI result Body Mass Index 26.1 Const: General: comfortable and no acute distress Resp: Effort & Inspection: normal respiratory effort Cardio: Rate: regular rate GI: Other: Stoma with good output, NOHEMI drains with very scanty output Palpation (GI): Soft to palpation, not firm, nontender and no guarding Objective Data Active Medications Acetaminophen (Acetaminophen 325 Mg Tablet) 650 mg PO Q6H PRN PRN Reason: fever, pain Calcium Carbonate (Calcium Carbonate 750 Mg Tab.Chew) 750 mg PO Q4H PRN PRN Reason: Heartburn Last Admin: 08/10/22 19:20 Dose: 750 mg Documented By: SHANTI Heparin Sodium (Porcine) (Heparin Sodium,Porcine 5,000 Unit/Ml Vial) 5,000 unit SUBCUT Q8H [facility] Last Admin: 09/14/22 08:16 Dose: 5,000 unit Documented By: JCARLOS Hydromorphone HCl (Hydromorphone Hcl 0.5 Mg/0.5 Ml Syringe) 0.5 mg IVPUSH Q4H PRN; Protocol PRN Reason: Pain, Severe (Pain Scale 7-10) Last Admin: 09/13/22 20:43 Dose: 0.5 mg Documented By: DAVID Promethazine HCl 12.5 mg/ (Sodium Chloride) 50.5 mls @ 202 mls/hr IV Q6H PRN PRN Reason: nausea/vomiting Last Infusion: 09/13/22 21:20 Dose: 0 mls/hr Documented By: DAVID Magnesium Oxide (Magnesium Oxide 400 Mg Tablet) 400 mg PO DAILY [facility] Last Admin: 09/14/22 08:15 Dose: 400 mg Documented By: JCARLOS Metoprolol Tartrate (Metoprolol Tartrate 25 Mg Tablet) 75 mg PO TID [facility]; Protocol Last Admin: 09/14/22 08:15 Dose: 75 mg Documented By: JCARLOS Pt Own (Pantoprazole [Protonix] 40 Mg Tablet,Delayed Release (Dr/Ec)) 40 mg PO BID@0630,1630 [facility] Last Admin: 09/14/22 05:57 Dose: 40 mg Documented By: DAVID Ondansetron HCl (Ondansetron Odt 4 Mg Tab.Rapdis) 4 mg TRANSLINGU Q6H PRN PRN Reason: Nausea Last Admin: 09/14/22 05:57 Dose: 4 mg Documented By: DAVID Oxycodone HCl (Oxycodone Hcl Immed Release 5 Mg Tablet) 10 mg PO Q4H PRN PRN Reason: Pain, Moderate (Pain Scale 4-6 Last Admin: 09/14/22 05:57 Dose: 10 mg Documented By: DAVID Pharmacy Consult (Consult Rx Perform Med Rec) 1 each MISCELLANE ONCE PRN PRN Reason: Consult order Scopolamine (Scopolamine 1.5 Mg Patch.Td.3) 1.5 mg EAR-BEHIND Q72H [facility] Last Admin: 09/14/22 08:16 Dose: 1.5 mg Documented By: JCARLOS Sodium Chloride (0.9 % Sodium Chloride Flush 3 Ml Syringe) 3 ml IVFLUSH QSHIFT [facility] Last Admin: 09/14/22 08:17 Dose: 3 ml Documented By: JCARLOS Sumatriptan Succinate (Sumatriptan Succinate 50 Mg Tablet) 50 mg PO DAILY PRN PRN Reason: Headache Last Admin: 08/24/22 21:37 Dose: 50 mg Documented By: JOSELUIS Labs 09/12/22 05:36 09/12/22 05:36 Procedures Date of Service Date of Service: 09/14/22 Progress Note: A&P Assessment and plan (1) Nausea: Status: Acute Assessment and Plan: Still with periodic nausea although overall seems to be better Looks well and comfortable Encouraged to use p.o. meds instead of IV Push oral intake Out of bed to chair and ambulate more Abdomen remained soft Will keep both drains in place - may have fistulous connection to the recto sigmoid stump to the collection Time Spent With Patient Time: Total time managing care of this patient today ____ minutes. Quality Stroke Does the patient have a stroke diagnosis?: No VTE Prior VTE?: No VTE Risk Level:: Medical - moderate - high VTE Device Contraindication: N/A - Device Ordered VTE Drug Contraindication: N/A - Med Ordered
[2022-09-14] MEDS: HYDROmorphone HCl 0.5 MG/0.5 ML SYRINGE IVPUSH ×3 (10:59→21:50)
[2022-09-14 16:00] VITALS: BP 150/70; PULSE 98; RESP 18; TEMP 36.3; O2SAT 96
--- NOTE | 2022-09-14 17:36 | PC.NURSE ---
Two attempts made to place midline in right basilic vein by Nate Campoverde RN, but unable to pass guidewire. Right basilic vein accessed twice by Prashanth Lucas RN, but also unable to pass guidewire. Dr Hagan was notified.
[2022-09-14 18:11] VITALS: BP 123/60; PULSE 106; RESP 16; TEMP 36.9; O2SAT 95
[2022-09-14 19:31] VITALS: BP 126/66; PULSE 100; RESP 18; TEMP 36.1; O2SAT 95
[2022-09-15] MEDS: Heparin Sodium,Porcine 5,000 UNIT/ML VIAL 5000 UNIT SUBCUT ×4 (01:47→23:11)
[2022-09-15] MEDS: 0.9 % Sodium Chloride Flush 3 ML SYRINGE IVFLUSH ×4 (01:47→20:25)
[2022-09-15] MEDS: HYDROmorphone HCl 0.5 MG/0.5 ML SYRINGE IVPUSH ×6 (01:48→23:11)
[2022-09-15] MEDS: Ondansetron ODT 4 MG TAB.RAPDIS TRANSLINGU ×4 (03:41→23:11)
[2022-09-15 04:00] VITALS: BP 145/66; PULSE 89; RESP 18; TEMP 36.4; O2SAT 97
[2022-09-15 07:09] VITALS: BP 132/60; PULSE 85; RESP 18; TEMP 36.1; O2SAT 97
[2022-09-15] MEDS: Metoprolol Tartrate 25 MG TABLET 75 MG PO ×3 (09:30→20:25)
[2022-09-15] MEDS: Magnesium Oxide 400 MG TABLET PO (09:30)
--- NOTE | 2022-09-15 11:20 | MHC.CLN ---
F/U PO INTAKE VARIABLE RANGING FROM 25-100% PERIODS OF NAUSEA CONTINUE; 1 EPISODE OF VOMITING DINNER YESTERDAY DIET RX:REGULAR-APPROPRIATE PT PREFERS ENSURE PLUS SUPPLEMENT PROVIDES 700 KCALS, 40 G PROTEIN WITH 100% ACCEPTANCE CONTINUE TO FOLLOW FOR INTAKE, WEIGHT, DIET TOLERANCE
[2022-09-15 11:56] VITALS: BP 132/60; PULSE 85; O2SAT 97
[2022-09-15] MEDS: oxyCODONE HCl Immed Release 5 MG TABLET 10 MG PO (12:24)
[2022-09-15 15:08] VITALS: BP 131/62; PULSE 92; RESP 16; TEMP 37.1; O2SAT 96
--- NOTE | 2022-09-15 15:35 | PM.PNGS ---
Subjective Subjective Date of Service: 09/15/22 Interval history: Oral intake good today Does state she still has periodic nausea Still last for IV meds Lost her IV yesterday, midline and able to be placed but has new IV access this morning Stoma with good output Physical Exam Vital Signs: Vital Signs: Last Vital Signs Temp 98.7 F 09/15/22 15:08 Pulse 92 09/15/22 15:08 Resp 16 09/15/22 15:08 BP 131/62 09/15/22 15:08 Pulse Ox 96 09/15/22 15:08 O2 Del Method 09/15/22 15:08 O2 Flow Rate 1.0 08/12/22 19:30 BMI result Body Mass Index 26.1 Const: General: comfortable and no acute distress Resp: Effort & Inspection: normal respiratory effort Cardio: Rate: regular rate GI: Other: Both NOHEMI drains with scanty thick output Palpation (GI): Soft to palpation, not firm and no guarding Objective Data Active Medications Acetaminophen (Acetaminophen 325 Mg Tablet) 650 mg PO Q6H PRN PRN Reason: fever, pain Calcium Carbonate (Calcium Carbonate 750 Mg Tab.Chew) 750 mg PO Q4H PRN PRN Reason: Heartburn Last Admin: 08/10/22 19:20 Dose: 750 mg Documented By: SHANTI Heparin Sodium (Porcine) (Heparin Sodium,Porcine 5,000 Unit/Ml Vial) 5,000 unit SUBCUT Q8H [facility] Last Admin: 09/15/22 15:21 Dose: 5,000 unit Documented By: KAMILA Hydromorphone HCl (Hydromorphone Hcl 0.5 Mg/0.5 Ml Syringe) 0.5 mg IVPUSH Q4H PRN; Protocol PRN Reason: Pain, Severe (Pain Scale 7-10) Last Admin: 09/15/22 14:23 Dose: 0.5 mg Documented By: KAMILA Promethazine HCl 12.5 mg/ (Sodium Chloride) 50.5 mls @ 202 mls/hr IV Q6H PRN PRN Reason: nausea/vomiting Last Infusion: 09/15/22 12:21 Dose: 0 mls/hr Documented By: KAMILA Magnesium Oxide (Magnesium Oxide 400 Mg Tablet) 400 mg PO DAILY [facility] Last Admin: 09/15/22 09:30 Dose: 400 mg Documented By: KAMILA Metoprolol Tartrate (Metoprolol Tartrate 25 Mg Tablet) 75 mg PO TID [facility]; Protocol Last Admin: 09/15/22 15:21 Dose: 75 mg Documented By: KAMILA Pt Own (Pantoprazole [Protonix] 40 Mg Tablet,Delayed Release (Dr/Ec)) 40 mg PO BID@0630,1630 [facility] Last Admin: 09/15/22 05:47 Dose: 40 mg Documented By: DAVID Ondansetron HCl (Ondansetron Odt 4 Mg Tab.Rapdis) 4 mg TRANSLINGU Q6H PRN PRN Reason: Nausea Last Admin: 09/15/22 09:44 Dose: 4 mg Documented By: KAMILA Oxycodone HCl (Oxycodone Hcl Immed Release 5 Mg Tablet) 10 mg PO Q4H PRN PRN Reason: Pain, Moderate (Pain Scale 4-6 Last Admin: 09/15/22 12:24 Dose: 10 mg Documented By: KAMILA Pharmacy Consult (Consult Rx Perform Med Rec) 1 each MISCELLANE ONCE PRN PRN Reason: Consult order Scopolamine (Scopolamine 1.5 Mg Patch.Td.3) 1.5 mg EAR-BEHIND Q72H [facility] Last Admin: 09/14/22 08:16 Dose: 1.5 mg Documented By: JCARLOS Sodium Chloride (0.9 % Sodium Chloride Flush 3 Ml Syringe) 3 ml IVFLUSH QSHIFT [facility] Last Admin: 09/15/22 15:22 Dose: 3 ml Documented By: KAMILA Sumatriptan Succinate (Sumatriptan Succinate 50 Mg Tablet) 50 mg PO DAILY PRN PRN Reason: Headache Last Admin: 08/24/22 21:37 Dose: 50 mg Documented By: JOSELUIS Labs 09/12/22 05:36 09/12/22 05:36 Procedures Date of Service Date of Service: 09/15/22 Progress Note: A&P Assessment and plan (1) Intra-abdominal abscess: Status: Acute Assessment and Plan: Continues to have periodic nausea However, states that oral intake is adequate Taking Ensure supplement Activity level seems to be better Wean off IV meds Abdomen soft Stoma functioning well Time Spent With Patient Time: Total time managing care of this patient today ____ minutes. Quality Stroke Does the patient have a stroke diagnosis?: No VTE Prior VTE?: No VTE Risk Level:: Medical - moderate - high VTE Device Contraindication: N/A - Device Ordered VTE Drug Contraindication: N/A - Med Ordered
--- NOTE | 2022-09-15 15:49 | PM.GIPN ---
Subjective Subjective Date of Service: 09/15/22 Interval History: some intermittent nausea Critical Care Time (minutes): 0 Physical Exam Vital Signs: Vital Signs: Last Vital Signs Temp 98.7 F 09/15/22 15:08 Pulse 92 09/15/22 15:08 Resp 16 09/15/22 15:08 BP 131/62 09/15/22 15:08 Pulse Ox 96 09/15/22 15:08 O2 Del Method 09/15/22 15:08 O2 Flow Rate 1.0 08/12/22 19:30 BMI result Body Mass Index 26.1 GI: Other: abdomen is soft and nontender Objective Data Labs 09/12/22 05:36 09/12/22 05:36 Microbiology Microbiology Results: Microbiology 08/07/22 12:05 Abdominal Fluid Gram Stain - Final 08/07/22 12:05 Abdominal Fluid Routine Culture - Final No growth after 2 days 08/07/22 12:05 Abdominal Fluid Anaerobic Culture - Final Clostridium perfringens Procedures Date of Service Date of Service: 09/15/22 Progress Note: A&P Assessment and plan (1) Nausea: Status: Acute Assessment and Plan: oral intake seems to be improving. A trial of metoclopramide could be considered but I am concerned about potential side effects. Continue present rx. Time Spent With Patient Time: Total time managing care of this patient today ____ minutes. Quality Stroke Does the patient have a stroke diagnosis?: No VTE Prior VTE?: No VTE Risk Level:: Medical - moderate - high VTE Device Contraindication: N/A - Device Ordered VTE Drug Contraindication: N/A - Med Ordered
[2022-09-15 17:00] VITALS: BMI 24.7
[2022-09-15 19:15] VITALS: BP 123/56; PULSE 86; RESP 17; TEMP 36.9; O2SAT 94
[2022-09-16] MEDS: HYDROmorphone HCl 0.5 MG/0.5 ML SYRINGE IVPUSH ×4 (02:58→19:58)
[2022-09-16 03:29] VITALS: BP 137/61; PULSE 86; RESP 18; TEMP 36; O2SAT 94
[2022-09-16] MEDS: Heparin Sodium,Porcine 5,000 UNIT/ML VIAL 5000 UNIT SUBCUT ×3 (06:01→22:04)
[2022-09-16] MEDS: Ondansetron ODT 4 MG TAB.RAPDIS TRANSLINGU ×3 (06:46→19:58)
[2022-09-16 08:00] VITALS: BP 125/60; PULSE 88; RESP 18; TEMP 36.7; O2SAT 96
[2022-09-16] MEDS: 0.9 % Sodium Chloride Flush 3 ML SYRINGE IVFLUSH ×3 (09:16→19:58)
[2022-09-16] MEDS: Magnesium Oxide 400 MG TABLET PO (09:16)
[2022-09-16] MEDS: Metoprolol Tartrate 25 MG TABLET 75 MG PO ×3 (09:16→19:58)
--- NOTE | 2022-09-16 09:45 | PM.PNGS ---
Subjective Subjective Date of Service: 09/16/22 Interval history: feels same says she has adequate oral intake but still has episodes of nausea/vomitting taking Ensure Physical Exam Vital Signs: Vital Signs: Last Vital Signs Temp 98.1 F 09/16/22 08:00 Pulse 88 09/16/22 08:00 Resp 18 09/16/22 08:00 BP 125/60 09/16/22 08:00 Pulse Ox 96 09/16/22 08:00 O2 Del Method 09/16/22 08:00 O2 Flow Rate 1.0 08/12/22 19:30 BMI result Body Mass Index 24.7 Const: General: comfortable and no acute distress Resp: Effort & Inspection: normal respiratory effort Cardio: Rate: regular rate GI: Other: both drains with scanty thick output Palpation (GI): Soft to palpation, not firm and no guarding Objective Data Active Medications Acetaminophen (Acetaminophen 325 Mg Tablet) 650 mg PO Q6H PRN PRN Reason: fever, pain Calcium Carbonate (Calcium Carbonate 750 Mg Tab.Chew) 750 mg PO Q4H PRN PRN Reason: Heartburn Last Admin: 08/10/22 19:20 Dose: 750 mg Documented By: SHANTI Heparin Sodium (Porcine) (Heparin Sodium,Porcine 5,000 Unit/Ml Vial) 5,000 unit SUBCUT Q8H [facility] Last Admin: 09/16/22 06:01 Dose: 5,000 unit Documented By: JOSELUIS Hydromorphone HCl (Hydromorphone Hcl 0.5 Mg/0.5 Ml Syringe) 0.5 mg IVPUSH Q4H PRN; Protocol PRN Reason: Pain, Severe (Pain Scale 7-10) Last Admin: 09/16/22 06:46 Dose: 0.5 mg Documented By: JOSELUIS Promethazine HCl 12.5 mg/ (Sodium Chloride) 50.5 mls @ 202 mls/hr IV Q6H PRN PRN Reason: nausea/vomiting Last Infusion: 09/15/22 20:40 Dose: 0 mls/hr Documented By: JOSELUIS Magnesium Oxide (Magnesium Oxide 400 Mg Tablet) 400 mg PO DAILY [facility] Last Admin: 09/16/22 09:16 Dose: 400 mg Documented By: MIRNA Metoprolol Tartrate (Metoprolol Tartrate 25 Mg Tablet) 75 mg PO TID [facility]; Protocol Last Admin: 09/16/22 09:16 Dose: 75 mg Documented By: MIRNA Pt Own (Pantoprazole [Protonix] 40 Mg Tablet,Delayed Release (Dr/Ec)) 40 mg PO BID@0630,1630 [facility] Last Admin: 09/16/22 06:01 Dose: 40 mg Documented By: JOSELUIS Ondansetron HCl (Ondansetron Odt 4 Mg Tab.Rapdis) 4 mg TRANSLINGU Q6H PRN PRN Reason: Nausea Last Admin: 09/16/22 06:46 Dose: 4 mg Documented By: JOSELUIS Oxycodone HCl (Oxycodone Hcl Immed Release 5 Mg Tablet) 10 mg PO Q4H PRN PRN Reason: Pain, Moderate (Pain Scale 4-6 Last Admin: 09/15/22 12:24 Dose: 10 mg Documented By: KAMILA Pharmacy Consult (Consult Rx Perform Med Rec) 1 each MISCELLANE ONCE PRN PRN Reason: Consult order Scopolamine (Scopolamine 1.5 Mg Patch.Td.3) 1.5 mg EAR-BEHIND Q72H [facility] Last Admin: 09/14/22 08:16 Dose: 1.5 mg Documented By: JCARLOS Sodium Chloride (0.9 % Sodium Chloride Flush 3 Ml Syringe) 3 ml IVFLUSH QSHIFT [facility] Last Admin: 09/16/22 09:16 Dose: 3 ml Documented By: MIRNA Sumatriptan Succinate (Sumatriptan Succinate 50 Mg Tablet) 50 mg PO DAILY PRN PRN Reason: Headache Last Admin: 08/24/22 21:37 Dose: 50 mg Documented By: JOSELUIS Labs 09/12/22 05:36 09/12/22 05:36 Procedures Date of Service Date of Service: 09/16/22 Progress Note: A&P Assessment and plan (1) Intra-abdominal abscess: Status: Acute Assessment and Plan: main issues are episodes of nausea/vomitting , deconditioning off abx will spread out Dilaudid to q6H oral Zofran pushed to ambulate more Ensure abd soft keep drains in Time Spent With Patient Time: Total time managing care of this patient today ____ minutes. Quality Stroke Does the patient have a stroke diagnosis?: No VTE Prior VTE?: No VTE Risk Level:: Medical - moderate - high VTE Device Contraindication: N/A - Device Ordered VTE Drug Contraindication: N/A - Med Ordered
[2022-09-16 16:00] VITALS: BP 118/67; PULSE 86; RESP 17; TEMP 36.4; O2SAT 97
[2022-09-16 20:00] VITALS: BP 128/66; PULSE 85; RESP 16; TEMP 36.8; O2SAT 96
[2022-09-17] MEDS: Ondansetron ODT 4 MG TAB.RAPDIS TRANSLINGU ×4 (01:58→21:25)
[2022-09-17] MEDS: HYDROmorphone HCl 0.5 MG/0.5 ML SYRINGE IVPUSH ×4 (01:58→21:25)
[2022-09-17 03:16] VITALS: BP 112/62; PULSE 81; RESP 17; TEMP 36.3; O2SAT 95
[2022-09-17] MEDS: Heparin Sodium,Porcine 5,000 UNIT/ML VIAL 5000 UNIT SUBCUT ×3 (05:59→21:25)
[2022-09-17 08:00] VITALS: BP 131/72; PULSE 95; RESP 20; TEMP 36.9; O2SAT 95
[2022-09-17] MEDS: Magnesium Oxide 400 MG TABLET PO (08:45)
[2022-09-17] MEDS: Metoprolol Tartrate 25 MG TABLET 75 MG PO ×3 (08:45→21:25)
[2022-09-17] MEDS: Scopolamine 1.5 MG PATCH.TD.3 EAR-BEHIND (08:45)
[2022-09-17] MEDS: 0.9 % Sodium Chloride Flush 3 ML SYRINGE IVFLUSH ×3 (08:47→21:29)
--- NOTE | 2022-09-17 10:35 | P.PNGS_ITS ---
Subjective Subjective Date of Service: 09/17/22 Interval history: did well with ambulation yesterday down hallways with her sister oral intake stable jey getting IV meds for nausea, Dilaudid stoma functioning well Physical Exam Vital Signs: Vital Signs: Last Vital Signs Temp 98.5 F 09/17/22 08:00 Pulse 95 09/17/22 08:00 Resp 20 09/17/22 08:00 BP 131/72 09/17/22 08:00 Pulse Ox 95 09/17/22 08:00 O2 Del Method 09/17/22 08:00 O2 Flow Rate 1.0 08/12/22 19:30 BMI result Body Mass Index 24.7 Const: General: comfortable and no acute distress Resp: Effort & Inspection: normal respiratory effort Cardio: Rate: regular rate GI: Other: stoma functioning well, NOHEMI drain x 2 w/ scanty output Palpation (GI): Soft to palpation, not firm and nontender Objective Data Active Medications Acetaminophen (Acetaminophen 325 Mg Tablet) 650 mg PO Q6H PRN PRN Reason: fever, pain Calcium Carbonate (Calcium Carbonate 750 Mg Tab.Chew) 750 mg PO Q4H PRN PRN Reason: Heartburn Last Admin: 08/10/22 19:20 Dose: 750 mg Documented By: SHANTI Heparin Sodium (Porcine) (Heparin Sodium,Porcine 5,000 Unit/Ml Vial) 5,000 unit SUBCUT Q8H [facility] Last Admin: 09/17/22 05:59 Dose: 5,000 unit Documented By: JOSELUIS Hydromorphone HCl (Hydromorphone Hcl 0.5 Mg/0.5 Ml Syringe) 0.5 mg IVPUSH Q4H P RN; Protocol PRN Reason: Pain, Severe (Pain Scale 7-10) Last Admin: 09/17/22 08:45 Dose: 0.5 mg Documented By: MIRNA Promethazine HCl 12.5 mg/ (Sodium Chloride) 50.5 mls @ 202 mls/hr IV Q6H PRN PRN Reason: nausea/vomiting Last Infusion: 09/16/22 16:22 Dose: 0 mls/hr Documented By: MIRNA Magnesium Oxide (Magnesium Oxide 400 Mg Tablet) 400 mg PO DAILY [facility] Last Admin: 09/17/22 08:45 Dose: 400 mg Documented By: MIRNA Metoprolol Tartrate (Metoprolol Tartrate 25 Mg Tablet) 75 mg PO TID [facility]; Protocol Last Admin: 09/17/22 08:45 Dose: 75 mg Documented By: MIRNA Pt Own (Pantoprazole [Protonix] 40 Mg Tablet,Delayed Release (Dr/Ec)) 40 mg PO BID@0630,1630 [facility] Last Admin: 09/17/22 05:59 Dose: 40 mg Documented By: JOSELUIS Ondansetron HCl (Ondansetron Odt 4 Mg Tab.Rapdis) 4 mg TRANSLINGU Q6H PRN PRN Reason: Nausea Last Admin: 09/17/22 08:45 Dose: 4 mg Documented By: MIRNA Oxycodone HCl (Oxycodone Hcl Immed Release 5 Mg Tablet) 10 mg PO Q4H PRN PRN Reason: Pain, Moderate (Pain Scale 4-6 Last Admin: 09/15/22 12:24 Dose: 10 mg Documented By: KAMILA Pharmacy Consult (Consult Rx Perform Med Rec) 1 each MISCELLANE ONCE PRN PRN Reason: Consult order Scopolamine (Scopolamine 1.5 Mg Patch.Td.3) 1.5 mg EAR-BEHIND Q72H [facility] Last Admin: 09/17/22 08:45 Dose: 1.5 mg Documented By: MIRNA Sodium Chloride (0.9 % Sodium Chloride Flush 3 Ml Syringe) 3 ml IVFLUSH QSHIFT [facility] Last Admin: 09/17/22 08:47 Dose: 3 ml Documented By: MIRNA Sumatriptan Succinate (Sumatriptan Succinate 50 Mg Tablet) 50 mg PO DAILY PRN PRN Reason: Headache Last Admin: 08/24/22 21:37 Dose: 50 mg Documented By: JOSELUIS Labs 09/12/22 05:36 09/12/22 05:36 Procedures Date of Service Date of Service: 09/17/22 Progress Note: A&P Assessment and plan (1) Nausea: Status: Acute Assessment and Plan: feels well today did well with ambulating, oral intake yesterday wean off IV meds Ensure push PO intake, activity level stable Time Spent With Patient Time: Total time managing care of this patient today ____ minutes. Quality Stroke Does the patient have a stroke diagnosis?: No VTE Prior VTE?: No VTE Risk Level:: Medical - moderate - high VTE Device Contraindication: N/A - Device Ordered VTE Drug Contraindication: N/A - Med Ordered
[2022-09-17 15:11] VITALS: BP 128/66; PULSE 90; RESP 17; TEMP 36.8; O2SAT 96
[2022-09-17 19:37] VITALS: BP 118/67; PULSE 80; RESP 17; TEMP 36.6; O2SAT 97
[2022-09-18 03:28] VITALS: BP 124/74; PULSE 81; RESP 18; TEMP 36.7; O2SAT 95
[2022-09-18] MEDS: Ondansetron ODT 4 MG TAB.RAPDIS TRANSLINGU ×4 (03:34→21:35)
[2022-09-18] MEDS: HYDROmorphone HCl 0.5 MG/0.5 ML SYRINGE IVPUSH ×4 (03:34→21:36)
[2022-09-18] MEDS: Heparin Sodium,Porcine 5,000 UNIT/ML VIAL 5000 UNIT SUBCUT ×2 (05:20→15:35)
[2022-09-18 08:00] VITALS: BP 123/72; PULSE 92; RESP 18; TEMP 36.5; O2SAT 97
[2022-09-18] MEDS: 0.9 % Sodium Chloride Flush 3 ML SYRINGE IVFLUSH ×2 (08:31→15:35)
[2022-09-18] MEDS: Metoprolol Tartrate 25 MG TABLET 75 MG PO ×3 (08:31→21:36)
[2022-09-18] MEDS: Magnesium Oxide 400 MG TABLET PO (08:31)
--- NOTE | 2022-09-18 11:43 | P.PNGS_ITS ---
Subjective Subjective Date of Service: 09/18/22 Interval history: Sleepy this morning Says she had good oral intake yesterday No new complaints but still as for IV meds for nausea and pain Physical Exam Vital Signs: Vital Signs: Last Vital Signs Temp 97.7 F 09/18/22 08:00 Pulse 92 09/18/22 08:00 Resp 18 09/18/22 08:00 BP 123/72 09/18/22 08:00 Pulse Ox 97 09/18/22 08:00 O2 Del Method 09/18/22 08:00 O2 Flow Rate 1.0 08/12/22 19:30 BMI result Body Mass Index 24.7 Const: General: comfortable and no acute distress Resp: Effort & Inspection: normal respiratory effort Cardio: Rate: regular rate GI: Other: Stoma functioning well, midline incision healing nicely Palpation (GI): Soft to palpation and not firm Objective Data Active Medications Acetaminophen (Acetaminophen 325 Mg Tablet) 650 mg PO Q6H PRN PRN Reason: fever, pain Calcium Carbonate (Calcium Carbonate 750 Mg Tab.Chew) 750 mg PO Q4H PRN PRN Reason: Heartburn Last Admin: 08/10/22 19:20 Dose: 750 mg Documented By: SHANTI Heparin Sodium (Porcine) (Heparin Sodium,Porcine 5,000 Unit/Ml Vial) 5,000 unit SUBCUT Q8H [facility] Last Admin: 09/18/22 05:20 Dose: 5,000 unit Documented By: MANUEL Hydromorphone HCl (Hydromorphone Hcl 0.5 Mg/0.5 Ml Syringe) 0.5 mg IVPUSH Q6H PRN; Protocol PRN Reason: Pain, Severe (Pain Scale 7-10) Last Admin: 09/18/22 09:28 Dose: 0.5 mg Documented By: MOI Promethazine HCl 12.5 mg/ (Sodium Chloride) 50.5 mls @ 202 mls/hr IV Q6H PRN PRN Reason: nausea/vomiting Last Admin: 09/18/22 11:25 Dose: 202 mls/hr Documented By: MOI Magnesium Oxide (Magnesium Oxide 400 Mg Tablet) 400 mg PO DAILY [facility] Last Admin: 09/18/22 08:31 Dose: 400 mg Documented By: MOI Metoprolol Tartrate (Metoprolol Tartrate 25 Mg Tablet) 75 mg PO TID [facility]; Protocol Last Admin: 09/18/22 08:31 Dose: 75 mg Documented By: MOI Pt Own (Pantoprazole [Protonix] 40 Mg Tablet,Delayed Release (Dr/Ec)) 40 mg PO BID@0630,1630 [facility] Last Admin: 09/18/22 05:20 Dose: 40 mg Documented By: MANUEL Ondansetron HCl (Ondansetron Odt 4 Mg Tab.Rapdis) 4 mg TRANSLINGU Q6H PRN PRN Reason: Nausea Last Admin: 09/18/22 09:28 Dose: 4 mg Documented By: MOI Oxycodone HCl (Oxycodone Hcl Immed Release 5 Mg Tablet) 10 mg PO Q4H PRN PRN Reason: Pain, Moderate (Pain Scale 4-6 Last Admin: 09/15/22 12:24 Dose: 10 mg Documented By: KAMILA Pharmacy Consult (Consult Rx Perform Med Rec) 1 each MISCELLANE ONCE PRN PRN Reason: Consult order Scopolamine (Scopolamine 1.5 Mg Patch.Td.3) 1.5 mg EAR-BEHIND Q72H [facility] Last Admin: 09/17/22 08:45 Dose: 1.5 mg Documented By: MIRNA Sodium Chloride (0.9 % Sodium Chloride Flush 3 Ml Syringe) 3 ml IVFLUSH QSHIFT [facility] Last Admin: 09/18/22 08:31 Dose: 3 ml Documented By: MOI Sumatriptan Succinate (Sumatriptan Succinate 50 Mg Tablet) 50 mg PO DAILY PRN PRN Reason: Headache Last Admin: 08/24/22 21:37 Dose: 50 mg Documented By: JOSELUIS Labs 09/12/22 05:36 09/12/22 05:36 Procedures Date of Service Date of Service: 09/18/22 Progress Note: A&P Assessment and plan (1) Nausea: Status: Acute Assessment and Plan: I am trying to wean her off from IV meds I have stretch of her Dilaudid does every 6 hours She now takes sublingual Zofran Oral intake seems to be adequate despite her nausea Stoma functioning well Push to increase activity Abdomen soft and stable, stoma with good function Time Spent With Patient Time: Total time managing care of this patient today ____ minutes. Quality Stroke Does the patient have a stroke diagnosis?: No VTE Prior VTE?: No VTE Risk Level:: Medical - moderate - high VTE Device Contraindication: N/A - Device Ordered VTE Drug Contraindication: N/A - Med Ordered
[2022-09-18 16:00] VITALS: BP 125/66; PULSE 88; RESP 17; TEMP 36.7; O2SAT 93
--- NOTE | 2022-09-18 18:36 | PC.NURSE ---
Pt vomited undigested food. Medicated with IV Phenergan
[2022-09-18 19:49] VITALS: BP 123/63; PULSE 82; RESP 16; TEMP 36.8; O2SAT 96
[2022-09-19] MEDS: Heparin Sodium,Porcine 5,000 UNIT/ML VIAL 5000 UNIT SUBCUT ×3 (00:49→23:00)
[2022-09-19 03:09] VITALS: BP 129/63; PULSE 87; RESP 18; TEMP 36.9; O2SAT 97
[2022-09-19] MEDS: Ondansetron ODT 4 MG TAB.RAPDIS TRANSLINGU ×4 (04:35→23:00)
[2022-09-19] MEDS: HYDROmorphone HCl 0.5 MG/0.5 ML SYRINGE IVPUSH ×4 (04:35→23:01)
[2022-09-19 06:24] LABS: Hematocrit 37.6 % (37.0-47.0); Hemoglobin 11.8 g/dl (12.0-16.0); Mean Corpuscular HGB Conc 31.4 g/dl (31.0-35.0); Mean Corpuscular Hemoglobin 27.7 pg (27.0-33.0); Mean Corpuscular Volume 88.3 fL (80.0-98.0); Mean Platelet Volume 9.8 fL (9.4-12.3); Platelet Count 347 X10*3/uL (160-400); Red Blood Count 4.26 X10*6/uL (4.20-5.50); Red Cell Distribution Width 13.2 % (11.0-16.0); White Blood Count 7.2 X10*3/uL (4.8-10.8)
[2022-09-19 06:47] LABS: Anion Gap 16 (12-20); Blood Urea Nitrogen 10 mg/dL (9-16); Calcium 10.1 mg/dL (8.4-10.2); Carbon Dioxide 29 mmol/L (22-29); Chloride 100 mmol/L (96-108); Creatinine Clr Calc Pharmacy 81.4; Estimated Glomerular Filt Rate > 60; Glucose Random 95 mg/dL (60-115); Potassium 3.8 mmol/L (3.3-5.1); Sodium 141 mmol/L (135-145)
[2022-09-19 07:57] VITALS: BP 126/66; PULSE 92; RESP 18; TEMP 36.5; O2SAT 96
[2022-09-19 10:16] LABS: Magnesium 1.3 mg/dL (1.6-2.6)
[2022-09-19] MEDS: Metoprolol Tartrate 25 MG TABLET 75 MG PO ×3 (10:22→23:01)
[2022-09-19] MEDS: Magnesium Oxide 400 MG TABLET PO (10:22)
[2022-09-19] MEDS: 0.9 % Sodium Chloride Flush 3 ML SYRINGE IVFLUSH ×2 (10:24→16:53)
--- NOTE | 2022-09-19 10:33 | PM.PNGS ---
Subjective Subjective Date of Service: 09/19/22 Interval history: no new complaints good PO intake yesterday says she walked down hallway yesterday Physical Exam Vital Signs: Vital Signs: Last Vital Signs Temp 97.7 F 09/19/22 07:57 Pulse 92 09/19/22 07:57 Resp 18 09/19/22 07:57 BP 126/66 09/19/22 07:57 Pulse Ox 96 09/19/22 07:57 O2 Del Method 09/19/22 07:57 O2 Flow Rate 1.0 08/12/22 19:30 BMI result Body Mass Index 24.7 Const: General: comfortable and no acute distress Resp: Effort & Inspection: normal respiratory effort Cardio: Rhythm: regular rhythm GI: Other: stoma functioning well, NOHEMI drains x 2 with scanty thick output Palpation (GI): Soft to palpation, not firm, nontender and no guarding Objective Data Active Medications Acetaminophen (Acetaminophen 325 Mg Tablet) 650 mg PO Q6H PRN PRN Reason: fever, pain Calcium Carbonate (Calcium Carbonate 750 Mg Tab.Chew) 750 mg PO Q4H PRN PRN Reason: Heartburn Last Admin: 08/10/22 19:20 Dose: 750 mg Documented By: SHANTI Heparin Sodium (Porcine) (Heparin Sodium,Porcine 5,000 Unit/Ml Vial) 5,000 unit SUBCUT Q8H [facility] Last Admin: 09/19/22 05:46 Dose: Not Given Documented By: MNAUEL Non-Admin Reason: Patient Refused Hydromorphone HCl (Hydromorphone Hcl 0.5 Mg/0.5 Ml Syringe) 0.5 mg IVPUSH Q6H PRN; Protocol PRN Reason: Pain, Severe (Pain Scale 7-10) Last Admin: 09/19/22 04:35 Dose: 0.5 mg Documented By: MANUEL Promethazine HCl 12.5 mg/ (Sodium Chloride) 50.5 mls @ 202 mls/hr IV Q6H PRN PRN Reason: nausea/vomiting Last Infusion: 09/19/22 01:12 Dose: 0 mls/hr Documented By: MANUEL Magnesium Sulfate/Dextrose (Magnesium Sulfate/D5w) 1 gm in 100 mls @ 100 mls/hr IV ONCE ONE Stop: 09/19/22 11:30 Magnesium Oxide (Magnesium Oxide 400 Mg Tablet) 400 mg PO DAILY [facility] Last Admin: 09/19/22 10:22 Dose: 400 mg Documented By: NOMI Metoprolol Tartrate (Metoprolol Tartrate 25 Mg Tablet) 75 mg PO TID [facility]; Protocol Last Admin: 09/19/22 10:22 Dose: 75 mg Documented By: NOMI Pt Own (Pantoprazole [Protonix] 40 Mg Tablet,Delayed Release (Dr/Ec)) 40 mg PO BID@0630,1630 [facility] Last Admin: 09/19/22 10:23 Dose: 40 mg Documented By: NOMI Ondansetron HCl (Ondansetron Odt 4 Mg Tab.Rapdis) 4 mg TRANSLINGU Q6H PRN PRN Reason: Nausea Last Admin: 09/19/22 04:35 Dose: 4 mg Documented By: MANUEL Pharmacy Consult (Consult Rx Perform Med Rec) 1 each MISCELLANE ONCE PRN PRN Reason: Consult order Scopolamine (Scopolamine 1.5 Mg Patch.Td.3) 1.5 mg EAR-BEHIND Q72H [facility] Last Admin: 09/17/22 08:45 Dose: 1.5 mg Documented By: MIRNA Sodium Chloride (0.9 % Sodium Chloride Flush 3 Ml Syringe) 3 ml IVFLUSH QSHIFT [facility] Last Admin: 09/19/22 10:24 Dose: 3 ml Documented By: NOMI Sumatriptan Succinate (Sumatriptan Succinate 50 Mg Tablet) 50 mg PO DAILY PRN PRN Reason: Headache Last Admin: 08/24/22 21:37 Dose: 50 mg Documented By: JOSELUIS Labs 09/19/22 05:52 09/19/22 05:52 Labs: Laboratory Results - last 24 hr 09/19/22 09/19/22 05:52 05:52 MCV 88.3 MCH 27.7 MCHC 31.4 RDW 13.2 Plt Count 347 MPV 9.8 Absolute Nucleated RBC 0.000 Nucleated RBC % (auto) 0.0 Anion Gap 16 Estim Creat Clear Calc 81.4 Estimated GFR > 60 Random Glucose 95 Calcium 10.1 Magnesium 1.3 L* Procedures Date of Service Date of Service: 09/19/22 Progress Note: A&P Assessment and plan (1) S/P colectomy: Status: Acute Assessment and Plan: activity level seems to be slowly improving PO intake now appears adequate continue Ensure replace Mg continue to wean off IV meds push to get out of bed rest of labs ok Time Spent With Patient Time: Total time managing care of this patient today ____ minutes. Quality Stroke Does the patient have a stroke diagnosis?: No VTE Prior VTE?: No VTE Risk Level:: Medical - moderate - high VTE Device Contraindication: N/A - Device Ordered VTE Drug Contraindication: N/A - Med Ordered
[2022-09-19] MEDS: Magnesium Sulfate/D5W 1 GM/100 ML PIGGYBACK IV (12:31)
[2022-09-19 15:24] VITALS: BP 127/60; PULSE 89; RESP 16; TEMP 36.5; O2SAT 97
[2022-09-19 19:24] VITALS: BP 130/68; PULSE 87; RESP 17; TEMP 36.8; O2SAT 97
[2022-09-20] MEDS: 0.9 % Sodium Chloride Flush 3 ML SYRINGE IVFLUSH ×4 (00:04→19:51)
[2022-09-20 03:29] VITALS: BP 122/60; PULSE 80; RESP 16; TEMP 37.1; O2SAT 97
[2022-09-20] MEDS: HYDROmorphone HCl 0.5 MG/0.5 ML SYRINGE IVPUSH ×4 (05:10→23:14)
[2022-09-20] MEDS: Ondansetron ODT 4 MG TAB.RAPDIS TRANSLINGU ×4 (05:10→23:12)
[2022-09-20 07:56] VITALS: BP 112/64; PULSE 87; RESP 18; TEMP 36.7; O2SAT 96
--- NOTE | 2022-09-20 08:27 | PM.PNGS ---
Subjective Subjective Date of Service: 09/21/22 Interval history: No new complaints Oral intake appears adequate Still asking for IV meds for pain and nausea periodically Physical Exam Vital Signs: Vital Signs: Last Vital Signs Temp 98.0 F 09/20/22 07:56 Pulse 87 09/20/22 07:56 Resp 18 09/20/22 07:56 BP 112/64 09/20/22 07:56 Pulse Ox 96 09/20/22 07:56 O2 Del Method 09/20/22 07:56 O2 Flow Rate 1.0 08/12/22 19:30 BMI result Body Mass Index 24.7 Const: General: comfortable and no acute distress Resp: Effort & Inspection: normal respiratory effort Cardio: Rate: regular rate GI: Other: Stoma functioning well with good output, NOHEMI drains with scanty thick output Palpation (GI): Soft to palpation, not firm and nontender Objective Data Active Medications Acetaminophen (Acetaminophen 325 Mg Tablet) 650 mg PO Q6H PRN PRN Reason: fever, pain Calcium Carbonate (Calcium Carbonate 750 Mg Tab.Chew) 750 mg PO Q4H PRN PRN Reason: Heartburn Last Admin: 08/10/22 19:20 Dose: 750 mg Documented By: SHANTI Heparin Sodium (Porcine) (Heparin Sodium,Porcine 5,000 Unit/Ml Vial) 5,000 unit SUBCUT Q8H [facility] Last Admin: 09/19/22 23:00 Dose: 5,000 unit Documented By: NUPUR Hydromorphone HCl (Hydromorphone Hcl 0.5 Mg/0.5 Ml Syringe) 0.5 mg IVPUSH Q6H PRN; Protocol PRN Reason: Pain, Severe (Pain Scale 7-10) Last Admin: 09/20/22 05:10 Dose: 0.5 mg Documented By: NUPUR Promethazine HCl 12.5 mg/ (Sodium Chloride) 50.5 mls @ 202 mls/hr IV Q6H PRN PRN Reason: nausea/vomiting Last Infusion: 09/20/22 00:03 Dose: 0 mls/hr Documented By: NUPUR Magnesium Oxide (Magnesium Oxide 400 Mg Tablet) 400 mg PO DAILY [facility] Last Admin: 09/19/22 10:22 Dose: 400 mg Documented By: NOMI Metoprolol Tartrate (Metoprolol Tartrate 25 Mg Tablet) 75 mg PO TID [facility]; Protocol Last Admin: 09/19/22 23:01 Dose: 75 mg Documented By: NUPUR Pt Own (Pantoprazole [Protonix] 40 Mg Tablet,Delayed Release (Dr/Ec)) 40 mg PO BID@0630,1630 [facility] Last Admin: 09/20/22 05:10 Dose: 40 mg Documented By: NUPUR Ondansetron HCl (Ondansetron Odt 4 Mg Tab.Rapdis) 4 mg TRANSLINGU Q6H PRN PRN Reason: Nausea Last Admin: 09/20/22 05:10 Dose: 4 mg Documented By: NUPUR Pharmacy Consult (Consult Rx Perform Med Rec) 1 each MISCELLANE ONCE PRN PRN Reason: Consult order Scopolamine (Scopolamine 1.5 Mg Patch.Td.3) 1.5 mg EAR-BEHIND Q72H [facility] Last Admin: 09/17/22 08:45 Dose: 1.5 mg Documented By: MIRNA Sodium Chloride (0.9 % Sodium Chloride Flush 3 Ml Syringe) 3 ml IVFLUSH QSHIFT [facility] Last Admin: 09/20/22 00:04 Dose: 3 ml Documented By: NUPUR Sumatriptan Succinate (Sumatriptan Succinate 50 Mg Tablet) 50 mg PO DAILY PRN PRN Reason: Headache Last Admin: 08/24/22 21:37 Dose: 50 mg Documented By: JOSELUIS Labs 09/19/22 05:52 09/19/22 05:52 Labs: Laboratory Results - last 24 hr 09/19/22 05:52 Magnesium 1.3 L* Procedures Date of Service Date of Service: 09/20/22 Progress Note: A&P Assessment and plan (1) Nausea: Status: Acute Assessment and Plan: Has been stable Trying to wean off IV meds for nausea and pain Try p.o. Dilaudid Oral intake appears adequate Activity level seems to be steadily improving Exam remains benign Time Spent With Patient Time: Total time managing care of this patient today ____ minutes. Quality Stroke Does the patient have a stroke diagnosis?: No VTE Prior VTE?: No VTE Risk Level:: Medical - moderate - high VTE Device Contraindication: N/A - Device Ordered VTE Drug Contraindication: N/A - Med Ordered
[2022-09-20] MEDS: Heparin Sodium,Porcine 5,000 UNIT/ML VIAL 5000 UNIT SUBCUT ×3 (08:56→23:13)
[2022-09-20] MEDS: Magnesium Oxide 400 MG TABLET PO (08:57)
[2022-09-20] MEDS: Metoprolol Tartrate 25 MG TABLET 75 MG PO ×3 (08:57→20:03)
[2022-09-20] MEDS: Scopolamine 1.5 MG PATCH.TD.3 EAR-BEHIND (08:57)
[2022-09-20 15:03] VITALS: BP 120/63; PULSE 88; RESP 18; TEMP 36.8; O2SAT 97
--- NOTE | 2022-09-20 15:53 | PM.GIPN ---
Subjective Subjective Date of Service: 09/20/22 Interval History: oral intake is better Critical Care Time (minutes): 0 Physical Exam Vital Signs: Vital Signs: Last Vital Signs Temp 98.3 F 09/20/22 15:03 Pulse 88 09/20/22 15:03 Resp 18 09/20/22 15:03 BP 120/63 09/20/22 15:03 Pulse Ox 97 09/20/22 15:03 O2 Del Method 09/20/22 15:03 O2 Flow Rate 1.0 08/12/22 19:30 BMI result Body Mass Index 24.7 GI: Other: abdomen is soft Objective Data Labs 09/19/22 05:52 09/19/22 05:52 Microbiology Microbiology Results: Microbiology 08/07/22 12:05 Abdominal Fluid Gram Stain - Final 08/07/22 12:05 Abdominal Fluid Routine Culture - Final No growth after 2 days 08/07/22 12:05 Abdominal Fluid Anaerobic Culture - Final Clostridium perfringens Procedures Date of Service Date of Service: 09/20/22 Progress Note: A&P Assessment and plan (1) Nausea: Status: Acute Assessment and Plan: nausea seems more controlled slow progress continue supportive care. Time Spent With Patient Time: Total time managing care of this patient today ____ minutes. Quality Stroke Does the patient have a stroke diagnosis?: No VTE Prior VTE?: No VTE Risk Level:: Medical - moderate - high VTE Device Contraindication: N/A - Device Ordered VTE Drug Contraindication: N/A - Med Ordered
[2022-09-20 19:38] VITALS: BP 121/65; PULSE 76; RESP 18; TEMP 37.1; O2SAT 97
[2022-09-21 03:54] VITALS: BP 125/62; PULSE 86; RESP 18; TEMP 36.5; O2SAT 96
[2022-09-21] MEDS: HYDROmorphone HCl 0.5 MG/0.5 ML SYRINGE IVPUSH ×3 (05:17→22:51)
[2022-09-21] MEDS: Ondansetron ODT 4 MG TAB.RAPDIS TRANSLINGU ×4 (05:18→22:50)
[2022-09-21] MEDS: Heparin Sodium,Porcine 5,000 UNIT/ML VIAL 5000 UNIT SUBCUT ×3 (06:29→22:51)
--- NOTE | 2022-09-21 08:20 | P.PNGS_ITS ---
Subjective Subjective Date of Service: 09/22/22 Interval history: Says she feels okay this morning Stoma functioning well Says she got out of bed and ambulated yesterday Had an episode nausea vomiting last night but says her oral intake has been adequate Now taking more of oral meds instead of IV Physical Exam Vital Signs: Vital Signs: Last Vital Signs Temp 97.7 F 09/21/22 03:54 Pulse 86 09/21/22 03:54 Resp 18 09/21/22 03:54 BP 125/62 09/21/22 03:54 Pulse Ox 96 09/21/22 03:54 O2 Del Method 09/21/22 03:54 O2 Flow Rate 1.0 08/12/22 19:30 BMI result Body Mass Index 24.7 Const: General: no acute distress Resp: Effort & Inspection: normal respiratory effort Cardio: Rate: regular rate GI: Other: Stoma with good output [address], very scanty output Palpation (GI): Soft to palpation, not firm and no guarding Objective Data Active Medications Acetaminophen (Acetaminophen 325 Mg Tablet) 650 mg PO Q6H PRN PRN Reason: fever, pain Calcium Carbonate (Calcium Carbonate 750 Mg Tab.Chew) 750 mg PO Q4H PRN PRN Reason: Heartburn Last Admin: 08/10/22 19:20 Dose: 750 mg Documented By: SHANTI Heparin Sodium (Porcine) (Heparin Sodium,Porcine 5,000 Unit/Ml Vial) 5,000 unit SUBCUT Q8H [facility] Last Admin: 09/21/22 06:29 Dose: 5,000 unit Documented By: TRENT Hydromorphone HCl (Hydromorphone Hcl 0.5 Mg/0.5 Ml Syringe) 0.5 mg IVPUSH Q6H PRN; Protocol PRN Reason: Pain, Severe (Pain Scale 7-10) Last Admin: 09/21/22 05:17 Dose: 0.5 mg Documented By: TRENT Hydromorphone HCl (Hydromorphone Hcl 2 Mg Tablet) 2 mg PO Q4H PRN PRN Reason: Pain, Moderate (Pain Scale 4-6 Promethazine HCl 12.5 mg/ (Sodium Chloride) 50.5 mls @ 202 mls/hr IV Q6H PRN PRN Reason: nausea/vomiting Last Infusion: 09/20/22 20:07 Dose: 0 mls/hr Documented By: TRENT Magnesium Oxide (Magnesium Oxide 400 Mg Tablet) 400 mg PO DAILY [facility] Last Admin: 09/20/22 08:57 Dose: 400 mg Documented By: MALU Metoprolol Tartrate (Metoprolol Tartrate 25 Mg Tablet) 75 mg PO TID [facility]; Protocol Last Admin: 09/20/22 20:03 Dose: 75 mg Documented By: TRENT Pt Own (Pantoprazole [Protonix] 40 Mg Tablet,Delayed Release (Dr/Ec)) 40 mg PO BID@0630,1630 [facility] Last Admin: 09/21/22 05:34 Dose: 40 mg Documented By: TRENT Ondansetron HCl (Ondansetron Odt 4 Mg Tab.Rapdis) 4 mg TRANSLINGU Q6H PRN PRN Reason: Nausea Last Admin: 09/21/22 05:18 Dose: 4 mg Documented By: TRENT Pharmacy Consult (Consult Rx Perform Med Rec) 1 each MISCELLANE ONCE PRN PRN Reason: Consult order Scopolamine (Scopolamine 1.5 Mg Patch.Td.3) 1.5 mg EAR-BEHIND Q72H [facility] Last Admin: 09/20/22 08:57 Dose: 1.5 mg Documented By: MALU Sodium Chloride (0.9 % Sodium Chloride Flush 3 Ml Syringe) 3 ml IVFLUSH QSHIFT [facility] Last Admin: 09/20/22 19:51 Dose: 3 ml Documented By: TRENT Sumatriptan Succinate (Sumatriptan Succinate 50 Mg Tablet) 50 mg PO DAILY PRN PRN Reason: Headache Last Admin: 08/24/22 21:37 Dose: 50 mg Documented By: JOSELUIS Labs 09/19/22 05:52 09/19/22 05:52 Procedures Date of Service Date of Service: 09/22/22 Progress Note: A&P Assessment and plan (1) S/P colectomy: Status: Acute Assessment and Plan: She says that her nausea and vomiting seem to be pretty controlled now with sublingual Zofran On p.o. Dilaudid and says this feels adequate She says she tomorrow on home PT and a visiting nurse - she says she has set up an appointment with a nail salon already on Sunday Will discuss his case managers Will keep NOHEMI in place Stoma care Push p.o. intake, including Ensure Symptom control for nausea, pain Time Spent With Patient Time: Total time managing care of this patient today ____ minutes. Quality Stroke Does the patient have a stroke diagnosis?: No VTE Prior VTE?: No VTE Risk Level:: Medical - moderate - high VTE Device Contraindication: N/A - Device Ordered VTE Drug Contraindication: N/A - Med Ordered
[2022-09-21] MEDS: Magnesium Oxide 400 MG TABLET PO (09:04)
[2022-09-21] MEDS: 0.9 % Sodium Chloride Flush 3 ML SYRINGE IVFLUSH ×3 (09:04→22:53)
[2022-09-21] MEDS: Metoprolol Tartrate 25 MG TABLET 75 MG PO ×3 (09:04→22:50)
[2022-09-21] MEDS: HYDROmorphone HCl 2 MG TABLET PO (11:35)
--- NOTE | 2022-09-21 14:55 | MHC.CM.PN ---
PLAN IS FOR PT TO DC HOME TOMORROW, Sunday09/22/22 WITH [facility]
[2022-09-21 16:00] VITALS: BP 115/56; PULSE 90; RESP 19; TEMP 36.3; O2SAT 97
--- NOTE | 2022-09-21 16:53 | PM.DS ---
DS: Providers Provider Date of Service: 09/22/22 Date of admission: 08/05/22 14:17 Primary care physician: Deandre Younger MD Consults: 08/08/22 15:03 Consult to Infectious Diseases Routine Consulting Provider: Puja Nielsen Reason for consultation: abscess cultures show Clostridium perfringens 08/09/22 09:00 Consult to Infectious Diseases Routine Consulting Provider: Puja Nielsen Reason for consultation: abscess showing C perfringens 08/16/22 09:45 Consult to Hospitalist Routine Consulting Provider: Hospitalist Reason For Exam: Hypertension, migraine, history of fibromyalgia 08/18/22 07:51 Consult to Psychiatry Routine Consulting Provider: Psych Covering Reason for consultation: ?depression, complicated med hx, long hospitalization Has provider been notified: No 09/06/22 10:38 Consult to Gastroenterology Routine Consulting Provider: [facility] [place] [facility] Reason for consultation: persistent nausea infractory to meds DS: Diagnosis Discharge Diagnosis (1) S/P colectomy: Status: Acute (2) Intra-abdominal abscess: Status: Acute (3) Status post colostomy: Status: Acute (4) Gastroparesis: Status: Acute (5) Recurrent vomiting: Status: Acute DS: Summary Hospital Course Hospital Course: 62-year-old female admitted August 05, 2022 because of nausea and drainage from her incision. She had a prolonged mention to the hospital prior to that. She had been admitted last May 17 for abdominal pain underwent emergency laparotomy, Callie's procedure for perforated sigmoid likely secondary to stercoral ulcer or diverticulitis. 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 She was eventually discharged on 08/01/2022 to rehab. She was readmitted on August 05 because of complaints of nausea, vomiting and drainage from her incision. She has a CAT scan showing a persistent intra-abdominal collection. There was no evidence of any obstruction. She therefore underwent CT drainage 08/07/2022. A pigtaill catheter was left in place. Not much of age was removed as the intra-abdominal collection appeared to be organized and loculated. She had follow-up CT scans thereafter because of persistent periodic nausea and vomiting. She had repeat the drain with a needle last August 15. She has had [address] left[address] Both of these have not really drained much. She had been on antibiotics but this has been discontinued for 3 weeks now. She has had persistent planes of recurrent nausea and occasional vomiting. Multiple CT scans have not shown any obstruction. She has had consistent ileostomy output and function. She did have a history of gastroparesis and nausea and vomiting were deemed to be at least partly secondary to this. She therefore has been maintained on Zofran and Dilaudid because of her complaints of pain as well. I have been weaning her of these IV medications. She does seemed to have adequate oral intake despite her results of nausea and vomiting. She has been taking Ensure as well. She initially was very deconditioned and had undergone physical therapy here in the hospital. She has had marked improvement in her level of activity. She is now being with a walker or with assistance and spends less time in bed. She has had no fever and her labs has been consistently normal. She has had no leukocytosis. CT scan report states fistulous connection from Gi tract to fluid collection cannot be ruled out. This may occur with her rectosignoid stump being very inflammed during surgery. It appears that we have achieved significant control of her periodic nausea and vomiting with sublingual Zofran. The patient has therefore stated she that she feels that she has been ready to be discharged with oral medications. Time Spent with Patient Time attestation: Total time managing care of this patient today ____ minutes. Discharge coordination time: Greater than 30 minutes Quality: Safe Use of Opioids Does Pt have an Active Cancer Diagnosis on the Problem List?: No Quality: Stroke Does the patient have a stroke diagnosis?: No Physical Exam Vital Signs: Vital Signs: Last Vital Signs Temp 97.4 F 09/21/22 16:00 Pulse 90 09/21/22 16:00 Resp 19 09/21/22 16:00 BP 115/56 L 09/21/22 16:00 Pulse Ox 97 09/21/22 16:00 O2 Del Method 09/21/22 16:00 O2 Flow Rate 1.0 08/12/22 19:30 BMI result Body Mass Index 24.7 Const: General: comfortable and no acute distress Resp: Effort & Inspection: normal respiratory effort Cardio: Rate: regular rate GI: Other: stoma functioning well, [address], left side and anterior Palpation (GI): Soft to palpation and nontender Extrem: General: Yes no clubbing, cyanosis or edema DS: Data Data Completed and Pending Completed studies during hospitalization [Text1]: Procedures Bypass Ileum to Cutaneous, Open Approach (05/18/22) Bypass Sigmoid Colon to Cutaneous, Open Approach (05/18/22) Drainage of Pelvic Cavity with Drainage Device, Percutaneous Approach (05/18/22) Excision of Sigmoid Colon, Open Approach (05/18/22) Excision of Sigmoid Colon, Via Natural or Artificial Opening Endoscopic, Diagnostic (05/18/22) Excision of Transverse Colon, Open Approach (05/18/22) Fluoroscopy of Superior Vena Cava using Low Osmolar Contrast, Guidance (05/18/22) Insertion of Infusion Device into Left Brachial Vein, Percutaneous Approach (05/18/22) Insertion of Infusion Device into Right Atrium, Percutaneous Approach (05/18/22) Insertion of Infusion Device into Superior Vena Cava, Percutaneous Approach (05/18/22) Insertion of Monitoring Device into Upper Artery, Percutaneous Approach (05/18/22) Inspection of Lower Intestinal Tract, Via Natural or Artificial Opening Endoscopic (05/18/22) Introduction of Vasopressor into Central Vein, Percutaneous Approach (05/18/22) Monitoring of Arterial Pressure, Peripheral, Percutaneous Approach (05/18/22) Monitoring of Arterial Pulse, Peripheral, Percutaneous Approach (05/18/22) Release Peritoneum, Open Approach (05/18/22) Respiratory Ventilation, 24-96 Consecutive Hours (05/18/22) Respiratory Ventilation, Greater than 96 Consecutive Hours (05/18/22) Transfusion of Nonautologous Frozen Plasma into Peripheral Vein, Percutaneous Approach (05/18/22) Transfusion of Nonautologous Platelets into Peripheral Vein, Percutaneous Approach (05/18/22) Transfusion of Nonautologous Red Blood Cells into Peripheral Vein, Percutaneous Approach (05/18/22) Ultrasonography of Superior Vena Cava, Guidance (05/18/22) Laboratory Results WBC 7.2 X10*3/uL (4.8-10.8) 09/19/22 05:52 RBC 4.26 X10*6/uL (4.20-5.50) 09/19/22 05:52 Hgb 11.8 g/dl (12.0-16.0) L 09/19/22 05:52 Hct 37.6 % (37.0-47.0) 09/19/22 05:52 MCV 88.3 fL (80.0-98.0) 09/19/22 05:52 MCH 27.7 pg (27.0-33.0) 09/19/22 05:52 MCHC 31.4 g/dl (31.0-35.0) 09/19/22 05:52 RDW 13.2 % (11.0-16.0) 09/19/22 05:52 Plt Count 347 X10*3/uL (160-400) 09/19/22 05:52 MPV 9.8 fL (9.4-12.3) 09/19/22 05:52 Immature Gran % (Auto) 0.7 % (0.0-0.4) H 09/12/22 05:36 Neut % (Auto) 65.6 % (45-73) 09/12/22 05:36 Lymph % (Auto) 24.8 % (20-40) 09/12/22 05:36 Irion % (Auto) 8.0 % (2-11) 09/12/22 05:36 Eos % (Auto) 0.6 % (0-4) 09/12/22 05:36 Baso % (Auto) 0.3 % (0-2) 09/12/22 05:36 Lymph # (Auto) 1.7 X10*3/uL (1.2-4.9) 09/12/22 05:36 Irion # (Auto) 0.6 X10*3/uL (0.1-1.2) 09/12/22 05:36 Eos # (Auto) 0.0 X10*3/uL (0.0-0.4) 09/12/22 05:36 Baso # (Auto) 0.0 X10*3/uL (0.0-0.2) 09/12/22 05:36 Abs Immat Gran (auto) 0.05 X10*3/uL (0.00-0.03) H 09/12/22 05:36 Absolute Neuts (auto) 4.5 x10*3/uL (2.0-8.3) 09/12/22 05:36 Absolute Nucleated RBC 0.000 X10*3/uL (0.0-0.012) 09/19/22 05:52 Nucleated RBC % (auto) 0.0 /100WBC (0.0-0.2) 09/19/22 05:52 PT 12.1 SEC (10.0-13.1) 08/06/22 06:37 INR 1.1 (0.9-1.1) 08/06/22 06:37 Sodium 141 mmol/L (135-145) 09/19/22 05:52 Potassium 3.8 mmol/L (3.3-5.1) 09/19/22 05:52 Chloride 100 mmol/L (96-108) 09/19/22 05:52 Carbon Dioxide 29 mmol/L (22-29) 09/19/22 05:52 Anion Gap 16 (12-20) 09/19/22 05:52 BUN 10 mg/dL (9-16) 09/19/22 05:52 Creatinine 0.65 mg/dL (0.5-1.4) 09/19/22 05:52 Estim Creat Clear Calc 81.4 09/19/22 05:52 Estimated GFR > 60 09/19/22 05:52 Random Glucose 95 mg/dL (60-115) 09/19/22 05:52 Calcium 10.1 mg/dL (8.4-10.2) 09/19/22 05:52 Phosphorus 4.3 mg/dL (2.7-4.5) 09/12/22 05:36 Magnesium 1.3 mg/dL (1.6-2.6) L* 09/19/22 05:52 Total Bilirubin 0.4 mg/dL (0.0-1.0) 09/12/22 05:36 AST 14 U/L (5-31) 09/12/22 05:36 ALT 7 U/L (0-31) 09/12/22 05:36 Alkaline Phosphatase 158 U/L (39-117) H 09/12/22 05:36 Total Protein 6.0 g/dL (6.5-8.0) L 09/12/22 05:36 Albumin 3.0 g/dL (3.5-5.0) L 09/12/22 05:36 COVID-19 (TYLER) Negative (Negative) 08/05/22 11:49 COVID-19 Clin Com See Note 08/05/22 11:[address] 08/11/22 14:46 IMPRESSION: Successful CT fluoroscopy-guided placement of a large bore 14 [place] APD catheter with a right abdominal approach and its tip lying within the left abdomen. Abdomen/Pelvis CT 08/28/22 09:43 IMPRESSION: Large complex multiloculated fluid collection in the anterior abdomen with [address] is only slightly decreased in size from the prior study. There is increasing although still incomplete peripheral rim enhancement of this dominant collection. The dominant collection communicates with a subcapsular collection scalloping the left lobe of liver and the spleen with thick peripheral rim enhancement which is not significantly changed in size and presumably and drained. Fluid extends directly from the dominant collection through the anterior abdominal wall to the skin surface in the region of the umbilicus highly suspicious for a fistula. Needle Aspiration CT 08/31/22 13:01 IMPRESSION: Both abdominal drainage catheters seen to be patent. Major regions of collection are being drained as described. 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 Discharge Plan Discharge Anticipated Discharge Date/Time: 09/22/22 12:06 Patient Disposition: Home Health Service Discharge Diagnosis: recurrent nausea, s/p total colectomy, ileostomy Referrals: Stephanie PRATHER [Outside] ([facility], A NURSE WILL BE IN CONTACT WITHIN 48HRS OF DISCHARGE TO ARRANGE FIRST VISIT.) Deandre Younger MD [Primary Care Provider] - 1 Week Deandre Hagan MD [Physician] - 2 Weeks Discharge Medications: New hydromorphone [Dilaudid] 2 mg tablet 2 mg PO Q6H PRN (Reason: pain (scale score 1-3)) Qty: 30 0RF Rx Instructions: Partial Fill upon patient request. pantoprazole [Protonix] 40 mg tablet,delayed release (DR/EC) 40 mg PO DAILY Qty: 30 0RF Continued loratadine [Claritin] 10 mg Tablet 10 mg PO DAILY [facility] Syringe 225 mg/1.5 mL syringe 225 mg subcut Q30D Rx Instructions: Monthly on the metoprolol tartrate 25 mg tablet 75 mg PO TID Protocol: Hold for SBP/HR < HOLD for SBP < : 90 HOLD for HR < : 60 rizatriptan 10 mg tablet 1 tab PO DAILY PRN (Reason: Migraine Headache) ondansetron 8 mg tablet,disintegrating 1 tab PO DAILY PRN (Reason: Nausea) duloxetine 60 mg capsule,delayed release(DR/EC) 1 cap PO BEDTIME dicyclomine 10 mg Capsule 20 mg PO TIDAC Qty: 90 0RF methocarbamol 750 mg tablet 750 mg PO TID pantoprazole [Protonix] 40 mg tablet,delayed release (DR/EC) 40 mg PO BEDTIME Discontinued oxycodone 5 mg tablet 5 mg PO Q6H PRN (Reason: Pain, Moderate (Pain Scale 4-6) Rx Instructions: Partial Fill upon patient request. mesalamine [Apriso] 0.375 gram capsule,extended release 24hr 1.5 g PO QAM Discharge Orders: Discharge Order (Routine); Ordered 09/22/22 Ordered By: Deandre Hagan Activity on Discharge: No heavy lifting Stand Alone Forms: Patient Portal Discharge page Activity Restrictions/Additional Instructions: OK to shower No lifting more than 20 lbs No strenuous activities Call the office for follow-up in 2 weeks - with Dr. Hagan Call Your Doctor If: -Your temperature exceeds 101.5? F -You experience excessive pain or swelling -You have an unexpected reaction to medication -You have excessive bleeding -You experience continued vomiting/nausea -Your incision begins to separate -Your incision shows signs of infection such as increased redness, swelling, excessive pain, drainage (light blood or clear fluid is normal) or heat Care Plan Goals: increase activity level control nausea and vomitting Health Concerns: periodic nausea and vomitting deconditioning Plan of Treatment: control N/V home PT VNA Assessment: much improved Discharge Date/Time: 09/22/22 14:14
[2022-09-21 20:00] VITALS: BP 124/74; PULSE 89; RESP 18; TEMP 35.9; O2SAT 100
[2022-09-22 04:00] VITALS: BP 123/73; PULSE 81; RESP 18; TEMP 36.2; O2SAT 95
[2022-09-22] MEDS: HYDROmorphone HCl 0.5 MG/0.5 ML SYRINGE IVPUSH ×2 (05:41→11:32)
[2022-09-22] MEDS: Ondansetron ODT 4 MG TAB.RAPDIS TRANSLINGU ×2 (05:41→11:33)
[2022-09-22 06:57] VITALS: BP 120/71; PULSE 86; RESP 18; TEMP 36.1; O2SAT 95
--- NOTE | 2022-09-22 09:19 | P.PNGS_ITS ---
Subjective Subjective Date of Service: 09/27/22 Interval history: no new complaints she says she is ready to go home and is looking forward to it she says her oral intake is adequate says she has been getting out of bed Physical Exam Vital Signs: Vital Signs: Last Vital Signs Temp 97 F 09/22/22 06:57 Pulse 86 09/22/22 06:57 Resp 18 09/22/22 06:57 BP 120/71 09/22/22 06:57 Pulse Ox 95 09/22/22 06:57 O2 Del Method 09/22/22 06:57 O2 Flow Rate 1.0 08/12/22 19:30 BMI result Body Mass Index 24.7 Const: General: comfortable and no acute distress Resp: Effort & Inspection: normal respiratory effort Cardio: Rate: regular rate GI: Other: stoma functioning well [address] in place still with scanty output Palpation (GI): Soft to palpation, not firm and nontender Objective Data Active Medications Acetaminophen (Acetaminophen 325 Mg Tablet) 650 mg PO Q6H PRN PRN Reason: fever, pain Calcium Carbonate (Calcium Carbonate 750 Mg Tab.Chew) 750 mg PO Q4H PRN PRN Reason: Heartburn Last Admin: 08/10/22 19:20 Dose: 750 mg Documented By: SHANTI Heparin Sodium (Porcine) (Heparin Sodium,Porcine 5,000 Unit/Ml Vial) 5,000 unit SUBCUT Q8H [facility] Last Admin: 09/21/22 22:51 Dose: 5,000 unit Documented By: TRENT Hydromorphone HCl (Hydromorphone Hcl 0.5 Mg/0.5 Ml Syringe) 0.5 mg IVPUSH Q6H PRN; Protocol PRN Reason: Pain, Severe (Pain Scale 7-10) Last Admin: 09/22/22 05:41 Dose: 0.5 mg Documented By: TRENT Hydromorphone HCl (Hydromorphone Hcl 2 Mg Tablet) 2 mg PO Q4H PRN PRN Reason: Pain, Moderate (Pain Scale 4-6 Last Admin: 09/21/22 11:35 Dose: 2 mg Documented By: MALU Promethazine HCl 12.5 mg/ (Sodium Chloride) 50.5 mls @ 202 mls/hr IV Q6H PRN PRN Reason: nausea/vomiting Last Infusion: 09/21/22 15:04 Dose: 0 mls/hr Documented By: MALU Magnesium Oxide (Magnesium Oxide 400 Mg Tablet) 400 mg PO DAILY [facility] Last Admin: 09/21/22 09:04 Dose: 400 mg Documented By: MALU Metoprolol Tartrate (Metoprolol Tartrate 25 Mg Tablet) 75 mg PO TID [facility]; Protocol Last Admin: 09/21/22 22:50 Dose: 75 mg Documented By: TRENT Pt Own (Pantoprazole [Protonix] 40 Mg Tablet,Delayed Release (Dr/Ec)) 40 mg PO BID@0630,1630 [facility] Last Admin: 09/22/22 05:46 Dose: 40 mg Documented By: TRENT Ondansetron HCl (Ondansetron Odt 4 Mg Tab.Rapdis) 4 mg TRANSLINGU Q6H PRN PRN Reason: Nausea Last Admin: 09/22/22 05:41 Dose: 4 mg Documented By: TRENT Pharmacy Consult (Consult Rx Perform Med Rec) 1 each MISCELLANE ONCE PRN PRN Reason: Consult order Scopolamine (Scopolamine 1.5 Mg Patch.Td.3) 1.5 mg EAR-BEHIND Q72H [facility] Last Admin: 09/20/22 08:57 Dose: 1.5 mg Documented By: MALU Sodium Chloride (0.9 % Sodium Chloride Flush 3 Ml Syringe) 3 ml IVFLUSH QSHIFT [facility] Last Admin: 09/21/22 22:53 Dose: 3 ml Documented By: TRENT Sumatriptan Succinate (Sumatriptan Succinate 50 Mg Tablet) 50 mg PO DAILY PRN PRN Reason: Headache Last Admin: 08/24/22 21:37 Dose: 50 mg Documented By: JOSELUIS Labs 09/19/22 05:52 09/19/22 05:52 Procedures Date of Service Date of Service: 09/22/22 Progress Note: A&P Assessment and plan (1) S/P colectomy: Status: Acute Assessment and Plan: clinical picture has been stable and unchanged for many weeks now has had no fever for many weeks oral intake has improved although pt still has periodic N/V she says she has Zofran sublingual at home - she has been taking this for her nausea at home from before ok with PO Dilaudid she understands she needs to continue to get out of bed and improve physical activity I had a long discussion with her about the above I have discussed above with her family (Sarita) pt understands what to look for at home - she says she knows when she needs to go to ED she is excited about going home and has a nail salon appt tomorrow I have discussed plans with correctional counselor/case manager and PT VNA, home PT to be arranged will leave drains in - may have better flow through drains with ambulation at home Time Spent With Patient Time: Total time managing care of this patient today ____ minutes. Quality Stroke Does the patient have a stroke diagnosis?: No VTE Prior VTE?: No VTE Risk Level:: Medical - moderate - high VTE Device Contraindication: N/A - Device Ordered VTE Drug Contraindication: N/A - Med Ordered
[2022-09-22 09:20] VITALS: BP 120/71; PULSE 86; O2SAT 95
[2022-09-22] MEDS: Metoprolol Tartrate 25 MG TABLET 75 MG PO (09:33)
[2022-09-22] MEDS: 0.9 % Sodium Chloride Flush 3 ML SYRINGE IVFLUSH (09:33)
[2022-09-22] MEDS: Heparin Sodium,Porcine 5,000 UNIT/ML VIAL 5000 UNIT SUBCUT (09:34)
[2022-09-22] MEDS: Magnesium Oxide 400 MG TABLET PO (09:44)
--- NOTE | 2022-09-22 09:54 | MHC.CM.PN ---
PT MEDICALLY CLEARED FOR D/C HOME W/NEW [facility]NA FOR [facility] AND HOME PT, PT'S WILL BE HERE TO TRANSPORT AFTER LUNCH.
--- NOTE | 2022-09-22 13:34 | P.F2F_ITS ---
Service Date Service Date: 09/22/22 Encounter Date of encounter: 09/22/22 Reasons for Services Signs and symptoms assessed: Abdominal pain, nausea/vomiting, PO intake, ostomy output, drain output Reason for senior care: wound care and postoperative assessment and/or care Reason for physical therapy: home safety and mobility and therapeutic exercises Homebound: Leaving the home is medically contraindicated at this time without the asist of a device and/or another person due th the listed conditions above and below. Reason homebound: weakness related to hospital stay and unable to drive Homebound supporting statement: Ms. Hankins has an extensive surgical history with a recent admission for intraabdominal abscess that was prolonged due to nausea and pain management. She has become very deconditioned due to her lengthy admissions and will require home PT. She will need home VNA for drain care. Certification: Based on the above findings, I certify that this patient is confined to the home and needs intermittent senior care care, physical therapy and/or speech therapy, or continues to need occupational therapy. The patient is under my care, and I have initiated the establishment of the plan of care. The patient will be followed by a physician who will periodically review the plan of care. Time Spent With Patient Time: Total time managing care of this patient today ____ minutes.
== END 2022-09-22 14:14 | disposition home health service (06) | DRG 721 ==
LOC: HO.ED 14:27 → HO.EDOVER 14:30 → HO.S3 08-06 20:17
PROVIDERS: Family Medicine; Hospitalist; Physician Assistant Medical; Physician Assistant Surgical; Radiology Diagnostic Radiology; Surgery; Admitting Provider Surgery; Emergency Provider Emergency Medicine; PCP Internal Medicine; Visit Provider Surgery
PROC: 0W9G30Z Drainage of Peritoneal Cavity with Drainage Device, Percutaneous Approach (ICD-10-PCS; principal; 2022-08-07 11:30)
DX: T81.43XA Infection following a procedure, organ and space surgical site, initial encounter (principal); K65.1 Peritoneal abscess; E44.1 Mild protein-calorie malnutrition; E83.42 Hypomagnesemia; K31.84 Gastroparesis; Z68.24 Body mass index [BMI] 24.0-24.9, adult; M79.7 Fibromyalgia; E87.6 Hypokalemia; F43.21 Adjustment disorder with depressed mood; K21.9 Gastro-esophageal reflux disease without esophagitis; D50.9 Iron deficiency anemia, unspecified; G43.909 Migraine, unspecified, not intractable, without status migrainosus; Z20.822 Contact with and (suspected) exposure to COVID-19; Z87.891 Personal history of nicotine dependence; Z93.3 Colostomy status; Z88.5 Allergy status to narcotic agent; Z88.6 Allergy status to analgesic agent; Z88.8 Allergy status to other drugs, medicaments and biological substances; Z79.899 Other long term (current) drug therapy
CPT/HCPCS: 10160; 36415; 74177; 75989; 80048; 80053; 83735; 84100; 85025; 85027; 85610; 87070; 87073; 87076; 87185; 87205; 87635; 96365; 96375; 97110; 97116; 97162; 97167; 97530; 97535; 99152; 99153; 99285; C1729; J1170; J2270; J2405; J2543; J2550; J3475; Q9967

== ENCOUNTER → 2022-10-05 09:14 | Outpatient (BNVA) | payer OTHER, SELFPAY | PROVIDERS: PCP Internal Medicine; Referring Provider Internal Medicine; Visit Provider Surgery | DX: Z13.89 Encounter for screening for other disorder (principal) ==

== ENCOUNTER → 2022-10-26 08:52 | Outpatient (BNVA) | payer OTHER, SELFPAY | PROVIDERS: PCP Internal Medicine; Referring Provider Internal Medicine; Visit Provider Surgery | DX: Z13.89 Encounter for screening for other disorder (principal) ==

== ENCOUNTER 2022-10-26 09:04 | Inpatient (IN) | payer OTHER, SELFPAY ==
--- NOTE | ~2022-10-26 | XR_ITS ---
EXAMINATION: XR CHEST CLINICAL INFORMATION: Weakness. COMPARISON: 07/22/2022 chest radiograph. TECHNIQUE: 2 views of the chest were obtained. FINDINGS: No significant abnormality is noted involving the heart, lungs, mediastinum, bony thorax or soft tissues. Anterior cervical fixation plate and screws appear intact without abnormality. XR/XR chest 2V IMPRESSION: No acute cardiopulmonary process.
[2022-10-26 09:09] VITALS: BP 121/61; PULSE 95; RESP 16; TEMP 36.5; O2SAT 95; BMI 23.8
[2022-10-26 09:33] LABS: MANUAL DIFF FLAG NO
[2022-10-26 09:34] LABS: Basophils Percent Auto 0.3 % (0-2); Eosinophils Absolute Auto 0.1 X10*3/uL (0.0-0.4); Hematocrit 41.4 % (37.0-47.0); Hemoglobin 14.2 g/dl (12.0-16.0); Imm Gran Abs Auto 0.01 X10*3/uL (0.00-0.03); Imm Gran Pct Auto 0.2 % (0.0-0.4); Lymphocytes Absolute Auto 1.8 X10*3/uL (1.2-4.9); Lymphocytes Percent Auto 31.8 % (20-40); Mean Corpuscular HGB Conc 34.3 g/dl (31.0-35.0); Mean Corpuscular Hemoglobin 28.3 pg (27.0-33.0); Mean Corpuscular Volume 82.6 fL (80.0-98.0); Mean Platelet Volume 10.2 fL (9.4-12.3); Monocytes Absolute Auto 0.3 X10*3/uL (0.1-1.2); Monocytes Percent Auto 5.2 % (2-11); Neutrophils Absolute Auto 3.5 x10*3/uL (2.0-8.3); Neutrophils Percent Auto 61.5 % (45-73); Platelet Count 202 X10*3/uL (160-400); Red Blood Count 5.01 X10*6/uL (4.20-5.50); Red Cell Distribution Width 13.1 % (11.0-16.0); White Blood Count 5.7 X10*3/uL (4.8-10.8)
--- NOTE | 2022-10-26 09:35 | PC.NURSE ---
62 y/o F brought in from Dr. Hagan's office for shaking/dizziness/vomitting. pt was supposed to have follow up appt for post op ileostomy. pt denies cp/palps/sob, denies BELL/numbness/tingling. pt is aox3, neuros intact. VSS. pt in gown, on monitor, labs drawn and sent. IV in place. awaiting
--- OUTSIDE RECORDS SUMMARY | 2022-10-26 09:38 | XMS_ITS ---
:1960 Author Organization [facility] Address [address] [place] [address] Care Team Providers Name Role Phone Ramu Peralta Jr Unavailable Unavailable PROBLEMS Type Condition ICD9-CM INY06-SY Onset Condition SNOMED Cod e Code Code Dates Status Problem Colitis K52.9 Active 40932225 Problem Crohns disease of K50.80 Active 71 271668 both small and large intestine without complication Problem Nausea R11.0 Active 812543427 Problem Gastroesophageal K21.9 Active reflux disease Problem Gastro-esophageal K21.9 Active reflux disease without esophagitis Problem Diarrhea, R19.7 Active 73545110 unspecified type Problem Gastroesophageal K21.9 Active 266 781127 reflux disease without esophagitis Problem Irritable bowel K58.1 Active 4406 04048 syndrome with constipation Problem Crohn's disease of K50.10 Active 7 594522 colon without complication ALLERGIES Substance Reaction Event Type Date Status Ultram Unknown Drug Allergy May, Active Omeprazole Unknown Drug Allergy May, Active ENCOUNTERS Encounter Location Date Diagnosis [facility] [place] [address] [facility] May, [place] [id number] [place] [address] May, [facility] [address] [place] [address] Aug, [facility] [address] [place] [address] [place] [address] Jun, Gastro-e sophageal reflux [facility] [address] [place] disease [place]out esophagitis [address] K21.9 [facility] Out[place] [address] [facility] Jun, Gastroesophagea l reflux [place]ARC[place] [phone] disease K2 1.[address] [place] [address] May, Gastroes ophageal reflux [facility] [address] [place] disease wi thout esophagitis [address] K21.9 ; Crohn's disease of colon without co mplication K50.10 and Irrit able bowel syndrome with co nstipation K58.[address] [place] [address] May, [facility] [address] [place] [address] [place] [address] Jun, [facility] [address] [place] [address] [place] [address] Jun, Gastroes ophageal reflux [facility] [address] [place] disease wi thout esophagitis [address] K21.9 and Crohns disease of both small and l arge intestine withou t complication K50 .[address] [place] [address] Oct, Gastroes ophageal reflux [facility] [address] [place] disease wi thout esophagitis [address] K21.9 and Crohns disease of both small and l arge intestine withou t complication K50 .[address] [place] [address] Apr, Gastroes ophageal reflux [facility] [address] [place] disease wi thout esophagitis [address] K21.9 and Crohn' 's disease of both small an d large intestine withou t complication K50 .[address] [place] [address] Sep, [facility] [address] [place] [address] [facility] Outpatient [address] [facility] Sep, [place] [phone] [place] [address] Sep, Crohns d isease of both small [facility] [address] [place] [place] and large intestine without [address] complication K50 .[address] [place] [address] May, Crohns d isease of both small [facility] [address] [place] and large intestine without [address] complication K50 .80 ; Diarrhea, unspec ified type R19.7 and Nausea R11.[address] [place] [address] Dec, [facility] [address] [place] [address] [facility] [address] Dec, [facility] [address] [place] [address] [facility] [address] Nov, [facility] [address] [place] [address] [facility] [address] Nov, Crohns d isease of both small [facility] [address] [place] and large intestine without [address] complication K50 .80 [facility] Outpatient [address] [place] [address] Aug, MARCOS [place] [id number] [facility] [address] Jun, [facility] [address] [place] [address] [facility] [address] Jun, [facility] [address] [place] [address] [facility] [address] Jun, [facility] [address] [place] [address] [facility] [address] May, [facility] [address] [place] [address] [facility] [address] Mar, Colitis K52.9 [facility] [address] [place] [address] [facility] [address] January, [facility] [address] [place] [address] [facility] [address] January, [facility] [address] [place] [address] [facility] [address] Dec, [facility] [address] [place] [address] [facility] [address] Dec, [facility] [address] [place] [address] [facility] [address] Dec, Colitis K52.9 [facility] [address] [place] [address] [facility] [address] Dec, [facility] [address] [place] [address] [facility] [address] Dec, Ileitis 558.9 and [facility] [address] [place] Gastroesop hageal reflux [address] disease without esophagitis 530.81 [facility] [address] Nov, [facility] [address] [place] [address] [facility] [address] Sep, [facility] [address] [place] [address] [facility] [address] Apr, [facility] [address] [place] [address] [facility] Outpatient [address] Feb, Ileitis 558.9 a nd [place]ARC[place] [id number] Gastroesop hageal reflux disease without esophagitis 530.81 [facility] [address] Nov, Inflamma tory bowel disease [facility] [address] [place], MARCOS 558.9 [phone] [facility] [address] Oct, Colitis 558.9 [facility] [address] [place] [address] [facility] Inpatient [address] Oct, [place] [id number] [facility] [address] May, [facility] [address] [place] [address] [facility] [address] Mar, [facility] [address] [place] [address] [facility] [address] Mar, [facility] [address] [place] [address] [facility] [address] Aug, [facility] [address] [place] [address] [facility] [address] January, [facility] [address] [place] [address] [facility] [address] Jun, [facility] [address] [place] [address] [facility] Outpatient [address] Dec, [place] [id number] [facility] [address] Oct, Esophage al reflux 530.81 and [facility] [address] [place] [address] malignant neopla sms, colon V76.51 [facility] Out[place] [address] Sep, [place] [id number] [facility] ER [address] May, MARC[place] [id number] [facility] ER [address] Feb, [place] [id number] [facility] ER [address] Nov, [place] [id number] IMMUNIZATIONS Vaccine Route Administration Date Status Influenza [...] Date DULoxetine HCl 60 90 Active MG Tylenol Active Robaxin Active Centrum Silver - Orally once a as directed 24h Active day Mesalamine ER TAKE 4 90 Active 0.375 GM CAPSULES BY MOUTH EVERY MORNING 90 Claritin Active Topamax 200 MG Orally twice a 1 tablet 12h A ctive day Imitrex 100 MG Orally Once a 1 tablet as 24h Active day needed Pantoprazole TAKE 1 90 Active Sodium 40 MG TABLET BY MOUTH EVERY DAY Cymbalta Active Methocarbamol Active PROCEDURES Procedure Date Ordered Result Body Site SIGMOIDOSCOPY AND BIOPSY May 19, 2022 DOC MEDS VERIFIED W/PT OR RE May 19, 2021 BP SCR PRFRM RCMDD DEFIND SCR INTVL Oct 15, 2019 SUPPLIES, CLINICAL STAFF TIME DURING INFECTIOUS Jun 23, 2020 DISEASE PANDEMIC DIAGNOSTIC SIGMOIDOSCOPY Oct 15, 2014 DOC MEDS VERIFIED W/PT OR RE Jun 23, 2020 TOBACCO NON-USER Jun 23, 2020 SIGMOIDOSCOPY AND BIOPSY February 08, 2017 COLORECTAL CA SCREEN DOC REV May 19, 2021 DOC RSN FOR NOT SCREEN/REC F/U HBP May 19, 2021 Pt scrn tbco id as non user May 19, 2021 DOC MEDS VERIFIED W/PT OR RE Oct 15, 2019 TOBACCO NON-USER Oct 15, 2019 UPPER GI ENDOSCOPY, BIOPSY Jun 29, 2021 COLORECTAL CA SCREEN DOC REV Jun 23, 2020 BP NOT ASSESS PATIENT NOT ELIGIBLE Jun 23, 2020 SIGMOIDOSCOPY AND BIOPSY December 15, 2016 COLORECTAL CA SCREEN DOC REV Oct 15, 2019 RESULTS Name Result Date Reference Range Pathology 2022-05-23 CT abdomen pelvis wo con 2022-05-23 NM gastric emptying study 2021-08-29 Pathology 2021-06-29 GI BIOPSY 2018-09-20 G.I. BIOPSY PROFILE, RANDOM 2018-06-11 NA 141 135-145 K 4.3 3.3-5.1 CL 109 96-108 CO2 26 22-29 ANION GAP 10 12-20 GLUCOSE,RANDOM 72 60-115 BUN 31 9-16 CREATININE [...] refill, COLON SCREENING, esophageal reflux Insurance Providers [facility] Health Member Patient Patient Patient Patient Patient Subscriber Subscriber Subscriber Group Insurance Plan Plan Plan Plan ID Relationship Address Phone Name Date of ID Name Date of No Type Insurance Insurance Insurance Coverage to Subscriber Address Phone Name Dates [phone] BLUE self Ju [id number] BENEFITS [id number] BENEFITS [facility] 7 ADMINISTRA [facility] ADMINISTRA [facility] [place] [address] [place]ICA[place] [phone] MEDICAID self Ju [id number] [facility] [phone] OF [facility] 3 [facility] [address] [facility] [phone] [facility] self Ju [id number] [place] [id number] Health [facility] Plan [id number] [facility]ALTH [facility] [id number] HEALTH NEW self Ju [id number] [facility] 00 [facility] [address] [facility] [address]
[2022-10-26 09:47] LABS: Lactic Acid 2.2 mmol/L (0.5-2.0)
[2022-10-26 09:50] LABS: Alanine Aminotransferase 47 U/L (0-31); Alkaline Phosphatase 202 U/L (39-117); Anion Gap 19 (12-20); Aspartate Amino Transferase 35 U/L (5-31); Bilirubin Total 0.6 mg/dL (0.0-1.0); Blood Urea Nitrogen 8 mg/dL (9-16); Calcium 8.4 mg/dL (8.4-10.2); Carbon Dioxide 23 mmol/L (22-29); Chloride 104 mmol/L (96-108); Creatinine Clr Calc Pharmacy 65.8; Estimated Glomerular Filt Rate > 60; Glucose Fasting 119 mg/dL (60-99); Potassium 3.7 mmol/L (3.3-5.1); Sodium 142 mmol/L (135-145); Total Protein 7.5 g/dL (6.5-8.0)
--- NOTE | 2022-10-26 10:04 | ED.DIZZY ---
HPI - Dizziness General Chief Complaint: Dizziness <Rosalie Ford NP - Last Filed: 10/26/22 15:02> Stated Complaint: sever dizziness <Rosalie Ford NP - Last Filed: 10/26/22 15:02> Time Seen by Provider: 10/26/22 09:43 <Rosalie Ford NP - Last Filed: 10/26/22 15:02> Source: patient and family <Rosalie Ford NP - Last Filed: 10/26/22 15:02> Mode of arrival: wheelchair <Rosalie Ford NP - Last Filed: 10/26/22 15:02> Limitations: no limitations <Rosalie Ford NP - Last Filed: 10/26/22 15:02> History of Present Illness HPI Narrative: 62 yo female with history of complex abdominal surgeries w/ subsequent ileostomy with prolonged admission discharged 09/22/22 presents from general surgery office follow-up visit with concern for one week of shakiness, generalized weakness, dizziness with position changes only, chronic nausea/vomiting/abdominal pain x 1 week. Patient reports that she does have chronic nausea and vomiting and vomits about every other day which has been since she was discharged from the hospital weeks ago. She does take Zofran p.r.n. which seems to help. She tells me that she has had normal output from her ileostomy. She denies any increase in output, black or bloody output. Patient reports abdominal pain which has been chronic for her. Patient denies any fevers, chills, urinary symptoms, chest pain, shortness of breath, headache. <Rosalie Ford NP - Last Filed: 10/26/22 15:02> Related Data Home Medications: Home Medications Medication Instructions Recorded Confirmed methocarbamol 750 mg tablet 750 mg PO TID 10/21/20 10/26/22 pantoprazole 40 mg tablet,delayed 40 mg PO BID 10/21/20 10/26/22 release (Protonix) ondansetron 8 mg disintegrating 1 tab PO DAILY PRN Nausea 05/18/22 10/26/22 tablet rizatriptan 10 mg tablet 1 tab PO DAILY PRN Migraine 05/18/22 10/26/22 Headache fremanezumab-vfrm 225 mg/1.5 mL 225 mg subcut Q30D 08/05/22 10/26/22 subcutaneous syringe (Ajovy Syringe) hydroxyzine HCl 10 mg tablet 10 mg PO TID 10/05/22 10/26/22 Previous Rx's Medication Instructions Recorded hydromorphone 2 mg tablet 2 mg PO Q6H PRN pain (scale score 09/22/22 (Dilaudid) 1-3) #30 tabs <Rosalie Ford NP - Last Filed: 10/26/22 15:02> Allergies/Adverse Reactions: Allergies Allergy/AdvReac Type Severity Reaction Status Date / Time omeprazole [OMEPRAZOLE] Allergy Severe N/V Verified 10/26/22 09:01 tramadol [From Ultram] Allergy Intermediate ITCHING Verified 10/26/22 09:01 ibuprofen [From Motrin] Allergy Unknown Verified 10/26/22 09:01 <Rosalie Ford NP - Last Filed: 10/26/22 15:02> Review of Systems Review of Systems: Yes all other systems are reviewed and are negative <Rosalie Ford NP - Last Filed: 10/26/22 15:02> Constitutional: Constitutional: Reports no additional constitutional complaints, Denies body ache(s), Denies chills, Denies fever(s), Denies headache(s) and Reports weakness <Rosalie Ford NP - Last Filed: 10/26/22 15:02> Eyes: Eyes: Reports no additional eye complaints and Denies change in vision <Rosalie Ford NP - Last Filed: 10/26/22 15:02> ENT: Reports system reviewed and no additional complaints, except as documented, Reports dizziness, Denies headache(s), Denies nasal congestion, Denies nasal discharge and Denies neck pain <Rosalie Ford NP - Last Filed: 10/26/22 15:02> Cardiovascular: Cardiovascular: Reports no additional cardiovascular complaints, Denies chest pain, Denies leg edema and Denies dyspnea <Rosalie Ford NP - Last Filed: 10/26/22 15:02> Respiratory: Respiratory: Reports no additional respiratory complaints, Denies cough and Denies dyspnea <Rosalie Ford NP - Last Filed: 10/26/22 15:02> Gastrointestinal: Gastrointestinal: Reports no additional gastrointestinal complaints, Reports abdominal pain, Denies diarrhea, Reports nausea and Reports vomiting <Rosalie Ford NP - Last Filed: 10/26/22 15:02> Genitourinary: Genitourinary: Reports no additional female genitourinary complaints and Denies urinary incontinence <Rosalie Ford NP - Last Filed: 10/26/22 15:02> Musculoskeletal: Musculoskeletal: Reports no additional musculoskeletal complaints, Denies back pain, Denies arthralgias, Denies joint swelling, Denies neck pain, Denies numbness and Denies tingling <Rosalie Ford NP - Last Filed: 10/26/22 15:02> Integumentary/Breasts: Skin/Breast: Reports system reviewed and no additional complaints, except as docu and Denies rash <Rosalie Ford NP - Last Filed: 10/26/22 15:02> Neurologic: Reports system reviewed and no additional complaints, except as documented, Denies Abnormal speech present, Reports dizziness, Denies headache(s), Denies numbness, Denies tingling and Reports weakness <Rosalie Ford NP - Last Filed: 10/26/22 15:02> [facility] Past Medical History Attestation statement: The following information was validated with the patient. <Rosalie Ford NP - Last Filed: 10/26/22 15:02> Source: old records reviewed and nursing notes reviewed <Rosalie Ford NP - Last Filed: 10/26/22 15:02> Medical History: Medical History Arthritis Back pain Carpal tunnel syndrome COVID-19 vaccine series completed Crohn's disease Dizziness Environmental allergies Fever of unknown origin Fibromyalgia Gastroparesis GERD (gastroesophageal reflux disease) Herniated cervical disc Hx of migraines Intra-abdominal abscess Intra-abdominal abscess Iron deficiency anemia Leukocytosis Perforated viscus PONV (postoperative nausea and vomiting) Recurrent vomiting Shock Thoracic disc herniation Vitamin D deficiency <Rosalie Ford NP - Last Filed: 10/26/22 15:02> Surgical History: Surgical History History of esophagogastroduodenoscopy (EGD) History of surgery History of tonsillectomy History of tubal ligation Hx of cholecystectomy Hx of colonoscopy Hx of fusion of cervical spine Hx of shoulder surgery Status post colostomy <Rosalie Ford NP - Last Filed: 10/26/22 15:02> Social History Social History: Social History Household Members: None Housing: House Are you a primary care center manager to a significant other at home: No Do you presently have visiting nurse or other home services: No Unable to assess alcohol history related to: Unknown Alcohol intake: never Patient Tobacco Use Status: Former Tobacco user Quit Date: 1999 Tobacco use type: Cigarette Smoked in Last 30 Days: No e-Cigarette/Vaping Use: Never Used Use of substances other than those prescribed or required for medical reasons: No Advance Directives: Yes Advance Directives on File: Yes Advance Directives Date on File: 06/23/20 service: No Current occupational status: employed <Rosalie Ford NP - Last Filed: 10/26/22 15:02> Physical Exam Vital Signs: Vital Signs: Last Vital Signs Temp 98.5 F 10/26/22 13:18 Pulse 79 10/26/22 13:18 Resp 18 10/26/22 13:18 BP 108/75 10/26/22 13:18 Pulse Ox 98 10/26/22 13:18 O2 Del Method 10/26/22 13:18 BMI result Body Mass Index 23.8 <Rosalie Ford NP - Last Filed: 10/26/22 15:02> Vital Signs: Last Vital Signs Temp 98.5 F 10/26/22 13:18 Pulse 79 10/26/22 13:18 Resp 18 10/26/22 13:18 BP 108/75 10/26/22 13:18 Pulse Ox 98 10/26/22 13:18 O2 Del Method 10/26/22 13:18 BMI result Body Mass Index 23.8 <Kd Kline MD - Last Filed: 10/26/22 16:29> Const: General: cooperative, healthy appearing, comfortable and no acute distress <Rosalie Ford [employer]OUND SUPPORT EQUIPMENT ASSEMBLER - Last Filed: 10/26/22 15:02> Orientation/consciousness: patient oriented x3 <Rosalie Ford [employer]OUND SUPPORT EQUIPMENT ASSEMBLER - Last Filed: 10/26/22 15:02> Limitations: no limitations <Rosalie Ford [employer]OUND SUPPORT EQUIPMENT ASSEMBLER - Last Filed: 10/26/22 15:02> HEENT: Head: Yes normal to inspection <Rosalie Ford [employer]OUND SUPPORT EQUIPMENT ASSEMBLER - Last Filed: 10/26/22 15:02> Ears: hearing grossly normal bilaterally <Rosalie Ford, [employer]OUND SUPPORT EQUIPMENT ASSEMBLER - Last Filed: 10/26/22 15:02> General nose exam: Normal external nose present <Rosalie Ford [employer]OUND SUPPORT EQUIPMENT ASSEMBLER - Last Filed: 10/26/22 15:02> Face and sinus: Yes normal facial exam <Rosalie Ford [employer]OUND SUPPORT EQUIPMENT ASSEMBLER - Last Filed: 10/26/22 15:02> Mouth: Normal oral and palatal mucosa present <Rosalie Ford [employer]OUND SUPPORT EQUIPMENT ASSEMBLER - Last Filed: 10/26/22 15:02> Throat: Yes posterior oropharynx normal <Rosalie Ford [employer]OUND SUPPORT EQUIPMENT ASSEMBLER - Last Filed: 10/26/22 15:02> Eyes: General: appearance normal, both eyes and all related structures <Rosalie Ford [employer]OUND SUPPORT EQUIPMENT ASSEMBLER - Last Filed: 10/26/22 15:02> Pupils: Equal, round and reactive pupils present <Rosalie Ford GROUND SUPPORT EQUIPMENT ASSEMBLER - Last Filed: 10/26/22 15:02> Neck: Neck: Yes normal visual inspection <Rosalie Ford [employer]OUND SUPPORT EQUIPMENT ASSEMBLER - Last Filed: 10/26/22 15:02> Chest: Chest palpation & inspection: normal inspection of the chest <Rosalie Ford [employer]OUND SUPPORT EQUIPMENT ASSEMBLER - Last Filed: 10/26/22 15:02> Resp: Effort & Inspection: normal respiratory effort <Rosalie Ford GROUND SUPPORT EQUIPMENT ASSEMBLER - Last Filed: 10/26/22 15:02> Auscultation: clear to auscultation bilaterally <Rosalie Ford GROUND SUPPORT EQUIPMENT ASSEMBLER - Last Filed: 10/26/22 15:02> Cardio: Rate: regular rate <Rosalie Ford [employer]OUND SUPPORT EQUIPMENT ASSEMBLER - Last Filed: 10/26/22 15:02> Rhythm: regular rhythm <Rosalie Ford [employer]OUND SUPPORT EQUIPMENT ASSEMBLER - Last Filed: 10/26/22 15:02> Peripheral pulses: Peripheral pulses 2+ throughout <Rosalie Ford [employer]OUND SUPPORT EQUIPMENT ASSEMBLER - Last Filed: 10/26/22 15:02> GI: Other: Ileostomy present right abdomen-liquid stool noted Drain to left abdomen To the mid abdomen there is an open wound w/drainage noted <Rosalie Ford GROUND SUPPORT EQUIPMENT ASSEMBLER - Last Filed: 10/26/22 15:02> Inspection: Yes normal to inspection <Rosalie Ford, [employer]OUND SUPPORT EQUIPMENT ASSEMBLER - Last Filed: 10/26/22 15:02> Auscultation: normal bowel sounds <Rosalie Ford [employer]OUND SUPPORT EQUIPMENT ASSEMBLER - Last Filed: 10/26/22 15:02> Back/Spine/Pelvis: Thoracic/Lumbar Spine: thoracic and lumbar spine normal to inspection <Rosalie Ford [employer]OUND SUPPORT EQUIPMENT ASSEMBLER - Last Filed: 10/26/22 15:02> Skin: General skin exam: no rashes or lesions noted <Rosalie Ford [employer]OUND SUPPORT EQUIPMENT ASSEMBLER - Last Filed: 10/26/22 15:02> Neuro: General: patient oriented x3, moves all extremities, no focal motor deficits, normal sensation to monofilament and Unable to assess gait <Rosalie Ford [employer]OUND SUPPORT EQUIPMENT ASSEMBLER - Last Filed: 10/26/22 15:02> Cranial nerves: Yes CN's II-XII intact bilaterally, Yes Equal, round and reactive pupils present, Yes Bilaterally intact EOM present, Yes Nystagmus not present, Yes Normal facial strength present and Yes Midline tongue present <Rosalie Ford [employer]OUND SUPPORT EQUIPMENT ASSEMBLER - Last Filed: 10/26/22 15:02> Cognition (Neuro): normal cognition <Rosalie Ford GROUND SUPPORT EQUIPMENT ASSEMBLER - Last Filed: 10/26/22 15:02> Speech: No Abnormal speech present <Rosalie Ford GROUND SUPPORT EQUIPMENT ASSEMBLER - Last Filed: 10/26/22 15:02> Gait exam (Neuro): Unable to assess gait <Rosalie Ford [employer]OUND SUPPORT EQUIPMENT ASSEMBLER - Last Filed: 10/26/22 15:02> Motor exam (neuro): 5/5 motor strength present throughout <Rosalie Ford NP - Last Filed: 10/26/22 15:02> Sensory Exam: Normal double simultaneous stimulation for sensation <Rosalie Ford NP - Last Filed: 10/26/22 15:02> Coordination: alhcet-cy-yrln test normal and amzq-ar-[id number] test normal <Rosalie Ford NP - Last Filed: 10/26/22 15:02> Extrem: General: Yes normal to inspection, Yes no pedal edema and Yes no calf tenderness <Rosalie Ford NP - Last Filed: 10/26/22 15:02> Course Course Course Narrative: 1000-lactic acid 2.2. This is from dehydration and not from infection. Magnesium less than 0.6. Replacement ordered. Anticipate admission as patient is quite weak and dizzy and unable to ambulate with hypo magnesemia <Rosalie Ford NP - Last Filed: 10/26/22 15:02> Medications Administered Generic Name Dose Route Start Last Admin Trade Name Freq PRN Reason Stop Dose Admin Enoxaparin Sodium 40 mg 10/26/22 14:00 10/26/22 14:19 Enoxaparin Sodium 40 Mg/0.4 Ml Syringe SUBCUT 40 mg Q24H GAUDENCIO Administration Hydromorphone HCl 2 mg 10/26/22 13:49 10/26/22 14:20 Hydromorphone Hcl 2 Mg Tablet PO 2 mg Q6H PRN Administration pain (scale score 1-3) Hydroxyzine HCl 10 mg 10/26/22 15:00 10/26/22 14:19 Hydroxyzine Hcl 10 Mg Tablet PO 10 mg TID GAUDENCIO Administration Ondansetron HCl 4 mg 10/26/22 13:41 10/26/22 14:19 Ondansetron Hcl 4 Mg/2 Ml Vial IVPUSH 4 mg Q8H PRN Administration Nausea and Vomiting Sodium Chloride 3 ml 10/26/22 16:00 10/26/22 14:20 0.9 % Sodium Chloride Flush 3 Ml Syringe IVFLUSH 3 ml QSHIFT GAUDENCIO Administration Discontinued Medications Generic Name Dose Route Start Last Admin Trade Name Freq PRN Reason Stop Dose Admin Sodium Chloride 1,000 mls @ 999 mls/hr 10/26/22 10:02 10/26/22 13:08 Ns IV 10/26/22 11:02 Infused .Q1H1M STA Infusion Magnesium Sulfate 2 gm in 50 mls @ 25 mls/hr 10/26/22 10:40 10/26/22 13:09 Magnesium Sulfate/H2o IV 10/26/22 12:39 Infused ONCE ONE Infusion Morphine Sulfate 2 mg 10/26/22 10:02 10/26/22 10:07 Morphine Sulfate 2 Mg/Ml Cartridge IVPUSH 10/26/22 10:03 2 mg ONCE ONE Administration Protocol Morphine Sulfate 2 mg 10/26/22 11:19 10/26/22 11:25 Morphine Sulfate 2 Mg/Ml Cartridge IVPUSH 10/26/22 11:20 2 mg ONCE ONE Administration Protocol Omeprazole 20 mg 10/26/22 13:50 10/26/22 14:19 Omeprazole 20 Mg Capsule.Dr PO 10/26/22 13:51 20 mg ONCE ONE Administration Ondansetron HCl 4 mg 10/26/22 10:02 10/26/22 10:07 Ondansetron Hcl 4 Mg/2 Ml Vial IVPUSH 10/26/22 10:03 4 mg ONCE ONE Administration <Rosalie Ford, [employer] SUPPORT EQUIPMENT ASSEMBLER - Last Filed: 10/26/22 15:02> Medications Administered Generic Name Dose Route Start Last Admin Trade Name Freq PRN Reason Stop Dose Admin Enoxaparin Sodium 40 mg 10/26/22 14:00 10/26/22 14:19 Enoxaparin Sodium 40 Mg/0.4 Ml Syringe SUBCUT 40 mg Q24H GAUDENCIO Administration Hydromorphone HCl 2 mg 10/26/22 13:49 10/26/22 14:20 Hydromorphone Hcl 2 Mg Tablet PO 2 mg Q6H PRN Administration pain (scale score 1-3) Hydroxyzine HCl 10 mg 10/26/22 15:00 10/26/22 14:19 Hydroxyzine Hcl 10 Mg Tablet PO 10 mg TID GAUDENCIO Administration Ondansetron HCl 4 mg 10/26/22 13:41 10/26/22 14:19 Ondansetron Hcl 4 Mg/2 Ml Vial IVPUSH 4 mg Q8H PRN Administration Nausea and Vomiting Sodium Chloride 3 ml 10/26/22 16:00 10/26/22 14:20 0.9 % Sodium Chloride Flush 3 Ml Syringe IVFLUSH 3 ml QSHIFT GAUDENCIO Administration Discontinued Medications Generic Name Dose Route Start Last Admin Trade Name Ami PRN Reason Stop Dose Admin Sodium Chloride 1,000 mls @ 999 mls/hr 10/26/22 10:02 10/26/22 13:08 Ns IV 10/26/22 11:02 Infused .Q1H1M STA Infusion Magnesium Sulfate 2 gm in 50 mls @ 25 mls/hr 10/26/22 10:40 10/26/22 13:09 Magnesium Sulfate/H2o IV 10/26/22 12:39 Infused ONCE ONE Infusion Morphine Sulfate 2 mg 10/26/22 10:02 10/26/22 10:07 Morphine Sulfate 2 Mg/Ml Cartridge IVPUSH 10/26/22 10:03 2 mg ONCE ONE Administration Protocol Morphine Sulfate 2 mg 10/26/22 11:19 10/26/22 11:25 Morphine Sulfate 2 Mg/Ml Cartridge IVPUSH 10/26/22 11:20 2 mg ONCE ONE Administration Protocol Omeprazole 20 mg 10/26/22 13:50 10/26/22 14:19 Omeprazole 20 Mg Capsule.Dr BIGGS 10/26/22 13:51 20 mg ONCE ONE Administration Ondansetron HCl 4 mg 10/26/22 10:02 10/26/22 10:07 Ondansetron Hcl 4 Mg/2 Ml Vial IVPUSH 10/26/22 10:03 4 mg ONCE ONE Administration <Kd Kline MD - Last Filed: 10/26/22 16:29> Medical Decision Making Medical Decision Making MDM Narrative: 62 yo female with complex abdominal surgery history with prolonged admission with ileostomy, chronic nausea and vomiting/abdominal pain who presents with 1 week of dizziness, generalized weakness, continued nausea/vomiting/abdominal pain, feeling shaky. Patient seen at outpatient general surgery office referred in for further evaluation. On exam normal neuro exam. No focal findings. Vitals are stable. Abdomen soft with mild diffuse tenderness. Will obtain labs, EKG, chest x-ray, UA, COVID screen, orthostatic VS <Rosalie Ford NP - Last Filed: 10/26/22 15:02> Differential Diagnosis Differential Diagnoses: The differential diagnosis associated with the presentation includes <Rosalie Ford NP - Last Filed: 10/26/22 15:02> Orthostatic hypotension, electrolyte abnormality, underlying infection Doubt central cause-normal neuro exam, w/ position changes only <Rosalie Ford NP - Last Filed: 10/26/22 15:02> Admission/Observation Consideration of admission/observation: Escalation of care including admission/observation considered <Rosalie Ford NP - Last Filed: 10/26/22 15:02> Hypo magnesemia with dizziness and weakness unable to ambulate. Will need admission <Rosalie Ford NP - Last Filed: 10/26/22 15:02> Consult Healthcare Provider Management of the patient was discussed with: Hospitalist <Rosalie Ford NP - Last Filed: 10/26/22 15:02> Discussed case with Dr CASTILLO who accepted admission <Rosalie Ford NP - Last Filed: 10/26/22 15:02> Lab Data MDM Lab Attestation statement: I reviewed the patient's lab results. <Rosalie Ford NP - Last Filed: 10/26/22 15:02> Result Diagrams: 10/26/22 09:26 10/26/22 09:26 <Rosalie Ford NP - Last Filed: 10/26/22 15:02> Labs: Lab Results 10/26/22 10/26/22 10/26/22 Range/Units 09:26 09:26 09:26 WBC 5.7 (4.8-10.8) X10*3/uL RBC 5.01 (4.20-5.50) X10*6/uL Hgb 14.2 D (12.0-16.0) g/dl Hct 41.4 (37.0-47.0) % MCV 82.6 (80.0-98.0) fL MCH 28.3 (27.0-33.0) pg MCHC 34.3 (31.0-35.0) g/dl RDW 13.1 (11.0-16.0) % Plt Count 202 D (160-400) X10*3/uL MPV 10.2 (9.4-12.3) fL Immature Gran % (Auto) 0.2 (0.0-0.4) % Neut % (Auto) 61.5 (45-73) % Lymph % (Auto) 31.8 (20-40) % Tyler % (Auto) 5.2 (2-11) % Eos % (Auto) 1.0 (0-4) % Baso % (Auto) 0.3 (0-2) % Lymph # (Auto) 1.8 (1.2-4.9) X10*3/uL Tyler # (Auto) 0.3 (0.1-1.2) X10*3/uL Eos # (Auto) 0.1 (0.0-0.4) X10*3/uL Baso # (Auto) 0.0 (0.0-0.2) X10*3/uL Abs Immat Gran (auto) 0.01 (0.00-0.03) X10*3/uL Absolute Neuts (auto) 3.5 (2.0-8.3) x10*3/uL Absolute Nucleated RBC 0.000 (0.0-0.012) X10*3/uL Nucleated RBC % (auto) 0.0 (0.0-0.2) /100WBC Sodium 142 (135-145) mmol/L Potassium 3.7 (3.3-5.1) mmol/L Chloride 104 (96-108) mmol/L Carbon Dioxide 23 (22-29) mmol/L Anion Gap 19 (12-20) BUN 8 L (9-16) mg/dL Creatinine 0.71 (0.5-1.4) mg/dL Estim Creat Clear Calc 65.8 Estimated GFR > 60 POC Glucose (60-115) mg/dL Fasting Glucose 119 H (60-99) mg/dL Lactic Acid 2.2 H* (0.5-2.0) mmol/L Lactic Acid F/U @ 2Hr (0.5-2.0) mmol/L Calcium 8.4 D (8.4-10.2) mg/dL Magnesium < 0.6 L* (1.6-2.6) mg/dL Total Bilirubin 0.6 (0.0-1.0) mg/dL AST 35 H (5-31) U/L ALT 47 H (0-31) U/L Alkaline Phosphatase 202 H (39-117) U/L Troponin I High Sens (<3.5-17.0) ng/L Total Protein 7.5 (6.5-8.0) g/dL Albumin 4.0 (3.5-5.0) g/dL Influenza Type A (PCR) (Negative) Influenza Type B (PCR) (Negative) RSV RNA Qual (PCR) (Negative) SARS-CoV-2 RNA (RT-PCR) (Negative) 10/26/22 10/26/22 10/26/22 Range/Units 10:24 10:31 10:57 WBC (4.8-10.8) X10*3/uL RBC (4.20-5.50) X10*6/uL Hgb (12.0-16.0) g/dl Hct (37.0-47.0) % MCV (80.0-98.0) fL MCH (27.0-33.0) pg MCHC (31.0-35.0) g/dl RDW (11.0-16.0) % Plt Count (160-400) X10*3/uL MPV (9.4-12.3) fL Immature Gran % (Auto) (0.0-0.4) % Neut % (Auto) (45-73) % Lymph % (Auto) (20-40) % Tyler % (Auto) (2-11) % Eos % (Auto) (0-4) % Baso % (Auto) (0-2) % Lymph # (Auto) (1.2-4.9) X10*3/uL Tyler # (Auto) (0.1-1.2) X10*3/uL Eos # (Auto) (0.0-0.4) X10*3/uL Baso # (Auto) (0.0-0.2) X10*3/uL Abs Immat Gran (auto) (0.00-0.03) X10*3/uL Absolute Neuts (auto) (2.0-8.3) x10*3/uL Absolute Nucleated RBC (0.0-0.012) X10*3/uL Nucleated RBC % (auto) (0.0-0.2) /100WBC Sodium (135-145) mmol/L Potassium (3.3-5.1) mmol/L Chloride (96-108) mmol/L Carbon Dioxide (22-29) mmol/L Anion Gap (12-20) BUN (9-16) mg/dL Creatinine (0.5-1.4) mg/dL Estim Creat Clear Calc Estimated GFR POC Glucose 104 (60-115) mg/dL Fasting Glucose (60-99) mg/dL Lactic Acid (0.5-2.0) mmol/L Lactic Acid F/U @ 2Hr (0.5-2.0) mmol/L Calcium (8.4-10.2) mg/dL Magnesium (1.6-2.6) mg/dL Total Bilirubin (0.0-1.0) mg/dL AST (5-31) U/L ALT (0-31) U/L Alkaline Phosphatase (39-117) U/L Troponin I High Sens < 3.5 (<3.5-17.0) ng/L Total Protein (6.5-8.0) g/dL Albumin (3.5-5.0) g/dL Influenza Type A (PCR) NEGATIVE (Negative) Influenza Type B (PCR) NEGATIVE (Negative) RSV RNA Qual (PCR) NEGATIVE (Negative) SARS-CoV-2 RNA (RT-PCR) NEGATIVE (Negative) 10/26/22 Range/Units 12:26 WBC (4.8-10.8) X10*3/uL RBC (4.20-5.50) X10*6/uL Hgb (12.0-16.0) g/dl Hct (37.0-47.0) % MCV (80.0-98.0) fL MCH (27.0-33.0) pg MCHC (31.0-35.0) g/dl RDW (11.0-16.0) % Plt Count (160-400) X10*3/uL MPV (9.4-12.3) fL Immature Gran % (Auto) (0.0-0.4) % Neut % (Auto) (45-73) % Lymph % (Auto) (20-40) % Tyler % (Auto) (2-11) % Eos % (Auto) (0-4) % Baso % (Auto) (0-2) % Lymph # (Auto) (1.2-4.9) X10*3/uL Tyler # (Auto) (0.1-1.2) X10*3/uL Eos # (Auto) (0.0-0.4) X10*3/uL Baso # (Auto) (0.0-0.2) X10*3/uL Abs Immat Gran (auto) (0.00-0.03) X10*3/uL Absolute Neuts (auto) (2.0-8.3) x10*3/uL Absolute Nucleated RBC (0.0-0.012) X10*3/uL Nucleated RBC % (auto) (0.0-0.2) /100WBC Sodium (135-145) mmol/L Potassium (3.3-5.1) mmol/L Chloride (96-108) mmol/L Carbon Dioxide (22-29) mmol/L Anion Gap (12-20) BUN (9-16) mg/dL Creatinine (0.5-1.4) mg/dL Estim Creat Clear Calc Estimated GFR POC Glucose (60-115) mg/dL Fasting Glucose (60-99) mg/dL Lactic Acid (0.5-2.0) mmol/L Lactic Acid F/U @ 2Hr 0.8 (0.5-2.0) mmol/L Calcium (8.4-10.2) mg/dL Magnesium (1.6-2.6) mg/dL Total Bilirubin (0.0-1.0) mg/dL AST (5-31) U/L ALT (0-31) U/L Alkaline Phosphatase (39-117) U/L Troponin I High Sens (<3.5-17.0) ng/L Total Protein (6.5-8.0) g/dL Albumin (3.5-5.0) g/dL Influenza Type A (PCR) (Negative) Influenza Type B (PCR) (Negative) RSV RNA Qual (PCR) (Negative) SARS-CoV-2 RNA (RT-PCR) (Negative) <Rosalie Ford, [employer] EQUIPMENT ASSEMBLER - Last Filed: 10/26/22 15:02> Lab Results 10/26/22 10/26/22 10/26/22 Range/Units 09:26 09:26 09:26 WBC 5.7 (4.8-10.8) X10*3/uL RBC 5.01 (4.20-5.50) X10*6/uL Hgb 14.2 D (12.0-16.0) g/dl Hct 41.4 (37.0-47.0) % MCV 82.6 (80.0-98.0) fL MCH 28.3 (27.0-33.0) pg MCHC 34.3 (31.0-35.0) g/dl RDW 13.1 (11.0-16.0) % Plt Count 202 D (160-400) X10*3/uL MPV 10.2 (9.4-12.3) fL Immature Gran % (Auto) 0.2 (0.0-0.4) % Neut % (Auto) 61.5 (45-73) % Lymph % (Auto) 31.8 (20-40) % Tyler % (Auto) 5.2 (2-11) % Eos % (Auto) 1.0 (0-4) % Baso % (Auto) 0.3 (0-2) % Lymph # (Auto) 1.8 (1.2-4.9) X10*3/uL Tyler # (Auto) 0.3 (0.1-1.2) X10*3/uL Eos # (Auto) 0.1 (0.0-0.4) X10*3/uL Baso # (Auto) 0.0 (0.0-0.2) X10*3/uL Abs Immat Gran (auto) 0.01 (0.00-0.03) X10*3/uL Absolute Neuts (auto) 3.5 (2.0-8.3) x10*3/uL Absolute Nucleated RBC 0.000 (0.0-0.012) X10*3/uL Nucleated RBC % (auto) 0.0 (0.0-0.2) /100WBC Sodium 142 (135-145) mmol/L Potassium 3.7 (3.3-5.1) mmol/L Chloride 104 (96-108) mmol/L Carbon Dioxide 23 (22-29) mmol/L Anion Gap 19 (12-20) BUN 8 L (9-16) mg/dL Creatinine 0.71 (0.5-1.4) mg/dL Estim Creat Clear Calc 65.8 Estimated GFR > 60 POC Glucose (60-115) mg/dL Fasting Glucose 119 H (60-99) mg/dL Lactic Acid 2.2 H* (0.5-2.0) mmol/L Lactic Acid F/U @ 2Hr (0.5-2.0) mmol/L Calcium 8.4 D (8.4-10.2) mg/dL Magnesium < 0.6 L* (1.6-2.6) mg/dL Total Bilirubin 0.6 (0.0-1.0) mg/dL AST 35 H (5-31) U/L ALT 47 H (0-31) U/L Alkaline Phosphatase 202 H (39-117) U/L Troponin I High Sens (<3.5-17.0) ng/L Total Protein 7.5 (6.5-8.0) g/dL Albumin 4.0 (3.5-5.0) g/dL Influenza Type A (PCR) (Negative) Influenza Type B (PCR) (Negative) RSV RNA Qual (PCR) (Negative) SARS-CoV-2 RNA (RT-PCR) (Negative) 10/26/22 10/26/22 10/26/22 Range/Units 10:24 10:31 10:57 WBC (4.8-10.8) X10*3/uL RBC (4.20-5.50) X10*6/uL Hgb (12.0-16.0) g/dl Hct (37.0-47.0) % MCV (80.0-98.0) fL MCH (27.0-33.0) pg MCHC (31.0-35.0) g/dl RDW (11.0-16.0) % Plt Count (160-400) X10*3/uL MPV (9.4-12.3) fL Immature Gran % (Auto) (0.0-0.4) % Neut % (Auto) (45-73) % Lymph % (Auto) (20-40) % Tyler % (Auto) (2-11) % Eos % (Auto) (0-4) % Baso % (Auto) (0-2) % Lymph # (Auto) (1.2-4.9) X10*3/uL Tyler # (Auto) (0.1-1.2) X10*3/uL Eos # (Auto) (0.0-0.4) X10*3/uL Baso # (Auto) (0.0-0.2) X10*3/uL Abs Immat Gran (auto) (0.00-0.03) X10*3/uL Absolute Neuts (auto) (2.0-8.3) x10*3/uL Absolute Nucleated RBC (0.0-0.012) X10*3/uL Nucleated RBC % (auto) (0.0-0.2) /100WBC Sodium (135-145) mmol/L Potassium (3.3-5.1) mmol/L Chloride (96-108) mmol/L Carbon Dioxide (22-29) mmol/L Anion Gap (12-20) BUN (9-16) mg/dL Creatinine (0.5-1.4) mg/dL Estim Creat Clear Calc Estimated GFR POC Glucose 104 (60-115) mg/dL Fasting Glucose (60-99) mg/dL Lactic Acid (0.5-2.0) mmol/L Lactic Acid F/U @ 2Hr (0.5-2.0) mmol/L Calcium (8.4-10.2) mg/dL Magnesium (1.6-2.6) mg/dL Total Bilirubin (0.0-1.0) mg/dL AST (5-31) U/L ALT (0-31) U/L Alkaline Phosphatase (39-117) U/L Troponin I High Sens < 3.5 (<3.5-17.0) ng/L Total Protein (6.5-8.0) g/dL Albumin (3.5-5.0) g/dL Influenza Type A (PCR) NEGATIVE (Negative) Influenza Type B (PCR) NEGATIVE (Negative) RSV RNA Qual (PCR) NEGATIVE (Negative) SARS-CoV-2 RNA (RT-PCR) NEGATIVE (Negative) 10/26/22 Range/Units 12:26 WBC (4.8-10.8) X10*3/uL RBC (4.20-5.50) X10*6/uL Hgb (12.0-16.0) g/dl Hct (37.0-47.0) % MCV (80.0-98.0) fL MCH (27.0-33.0) pg MCHC (31.0-35.0) g/dl RDW (11.0-16.0) % Plt Count (160-400) X10*3/uL MPV (9.4-12.3) fL Immature Gran % (Auto) (0.0-0.4) % Neut % (Auto) (45-73) % Lymph % (Auto) (20-40) % Tyler % (Auto) (2-11) % Eos % (Auto) (0-4) % Baso % (Auto) (0-2) % Lymph # (Auto) (1.2-4.9) X10*3/uL [place] # (Auto) (0.1-1.2) X10*3/uL Eos # (Auto) (0.0-0.4) X10*3/uL Baso # (Auto) (0.0-0.2) X10*3/uL Abs Immat Gran (auto) (0.00-0.03) X10*3/uL Absolute Neuts (auto) (2.0-8.3) x10*3/uL Absolute Nucleated RBC (0.0-0.012) X10*3/uL Nucleated RBC % (auto) (0.0-0.2) /100WBC Sodium (135-145) mmol/L Potassium (3.3-5.1) mmol/L Chloride (96-108) mmol/L Carbon Dioxide (22-29) mmol/L Anion Gap (12-20) BUN (9-16) mg/dL Creatinine (0.5-1.4) mg/dL Estim Creat Clear Calc Estimated GFR POC Glucose (60-115) mg/dL Fasting Glucose (60-99) mg/dL Lactic Acid (0.5-2.0) mmol/L Lactic Acid F/U @ 2Hr 0.8 (0.5-2.0) mmol/L Calcium (8.4-10.2) mg/dL Magnesium (1.6-2.6) mg/dL Total Bilirubin (0.0-1.0) mg/dL AST (5-31) U/L ALT (0-31) U/L Alkaline Phosphatase (39-117) U/L Troponin I High Sens (<3.5-17.0) ng/L Total Protein (6.5-8.0) g/dL Albumin (3.5-5.0) g/dL Influenza Type A (PCR) (Negative) Influenza Type B (PCR) (Negative) RSV RNA Qual (PCR) (Negative) SARS-CoV-2 RNA (RT-PCR) (Negative) <Kd Kline MD - Last Filed: 10/26/22 16:29> Independent Interpretation I performed an independent interpretation of an: EKG and Plain X-Ray (I indepedentely reviewed the chest x-ray and agree with radiologist's report) <Rosalie Ford NP - Last Filed: 10/26/22 15:02> Interpretation: I independetely reviewed the EKG which shows normal sinus rhythm with rate 84, normal OK, normal QRS, normal QT <Rosalie Ford NP - Last Filed: 10/26/22 15:02> Radiology Impression Discussion of test interpretation with radiology: I have reviewed the radiologist's reading. <Rosalie Ford NP - Last Filed: 10/26/22 15:02> Radiologist Impression: [address] [address] XRay Report Signed Patient: uJ Hankins MR#: [id number] : 1960 Acct:[id number] Age/Sex: 62 / F ADM Date: 10/26/22 Loc: .ED Attending Dr: Ordering Physician: Rosalie West NP Date of Service: 10/26/22 Procedure(s): XR chest 2V Accession Number(s): [id number] cc: Rosalie West NP~ EXAMINATION: XR CHEST CLINICAL INFORMATION: Weakness. COMPARISON: 07/22/2022 chest radiograph. TECHNIQUE: 2 views of the chest were obtained. FINDINGS: No significant abnormality is noted involving the heart, lungs, mediastinum, bony thorax or soft tissues. Anterior cervical fixation plate and screws appear intact without abnormality. XR/XR chest 2V IMPRESSION: No acute cardiopulmonary process. <Rosalie Ford NP - Last Filed: 10/26/22 15:02> Independent Historian Clinical information obtained from an independent historian. History obtained from or confirmed by: Spouse <Rosalie Ford NP - Last Filed: 10/26/22 15:02> Attestation Attending Attestation: I reviewed MANAGER OF FINANCIAL PLANNING/PA/Resident note, assessment and plan. I agree with the documentation, assessment and plan unless otherwise stated. <Kd Kline MD - Last Filed: 10/26/22 16:29> Discharge Plan Discharge Clinical Impression: Hypomagnesemia, Weakness <Rosalie Ford NP - Last Filed: 10/26/22 15:02> Patient Disposition: Admitted As Inpatient <Rosalie Ford NP - Last Filed: 10/26/22 15:02>
[2022-10-26] MEDS: ondansetron HCL 4 MG/2 ML VIAL IVPUSH ×2 (10:07→14:19)
[2022-10-26] MEDS: 0.9 % Sodium Chloride 1,000 ML 999 ML IV (10:07)
[2022-10-26] MEDS: Morphine Sulfate 2 MG/ML CARTRIDGE IVPUSH ×2 (10:07→11:25)
[2022-10-26 10:34] LABS: Glucose, Whole Blood 104 mg/dL (60-115)
[2022-10-26 10:42] LABS: Magnesium < 0.6 mg/dL (1.6-2.6)
[2022-10-26 10:51] VITALS: BP 114/72; BP 123/70; PULSE 90; PULSE 93
--- NOTE | 2022-10-26 11:22 | ECG_ITS ---
Test Reason : weakness/dizziness Blood Pressure : / mmHG Vent. Rate : 084 BPM Atrial Rate : 084 BPM P-R Int : 142 ms QRS Dur : 070 ms QT Int : 370 ms P-R-T Axes : 064 013 057 degrees QTc Int : 437 ms Normal sinus rhythm Cannot rule out Anterior infarct (cited on or before 18-MAY-2022) Abnormal ECG When compared with ECG of 21-JUN-2022 16:05, Minimal criteria for Inferior infarct are no longer Present Referred By: Rosalie Ford Electronically Signed By:Alfredo Medina
[2022-10-26] MEDS: Magnesium Sulfate/H2O 2 GM/50 ML PIGGYBACK IV ×2 (11:25→17:55)
[2022-10-26 11:26] LABS: Influenza A PCR NEGATIVE (Negative); Influenza B PCR NEGATIVE (Negative); Resp Syncy Virus RNA Qual PCR NEGATIVE (Negative); SARS COV2 PCR INHOUSE NEGATIVE (Negative)
[2022-10-26 11:30] LABS: Troponin-I High Sensitivity < 3.5 ng/L (<3.5-17.0)
[2022-10-26 11:32] LABS: Reflex Lactate? Lactic Acid Added
--- NOTE | 2022-10-26 11:52 | PHA.MEDREC ---
Pharmacy Consult ? Medication Reconciliation Pharmacy has completed the medication reconciliation.
[2022-10-26 12:46] LABS: ~Lactic Acid-LAB USE ONLY 0.8 mmol/L (0.5-2.0)
--- NOTE | 2022-10-26 12:49 | PM.IMHP ---
History of Present Illness Date of Service: 10/26/22 Attending physician on admission: Saleem Hurtado Chief Complaint: N/V, weakness Pt is a 62-year-old female with a PMH significant for?Crohn's disease, recent 4-month long hospitalization for intestinal perforation with multiple abscesses then toxic megacolon d/t C difficile colitis requiring subtotal colectomy, who presents to the ED with severe?weakness and shaking. Patient being seen in General surgery's office for follow-up, we will to ED by Dr. Hagan. Patient states that she has been feeling weak and shaky for the past week, worse last couple of days. Patient notes she has been unable to stand and walk by herself the past couple days d/t weakness and shaking. Has had some lightheadedness. On the way to today's doctor's appointment had one episode of vertigo in the car and 2 others in the wheelchair on the way up to the office. Pt denies a previous history of vertigo. Pt also complains of upper abdominal pain, which is chronic since her surgeries and slowly getting better. Has chronic nausea and vomiting, usually once per day. Patient notes that output in ostomy has been more liquid than normal, but denies any increase in output. Patient denies chest pain/pressure, palpitations. No shortness of breath. Denies fever, chills. In the ED labs were significant for no leukocytosis, magnesium < 0.6, lactic acid 2.2 with repeat of 0.8, negative troponin. CXR showed no acute cardiopulmonary process seen. EKG demonstrated normal sinus rhythm with no evidence of ST elevations or depressions. Pt was treated with IVF, ondansetron, magnesium 2 g IV, and morphine. Pt will be admitted to the hospital for symptomatic hypomagnesmia. Review of Systems Review of Systems: Weakness, shaking x1 week Vertigo Lightheadedness Chronic upper abdominal pain Chronic nausea and vomiting No chest pain/pressure, palpitations Denies shortness of breath Yes all other systems are reviewed and are negative [facility] Medical History Arthritis Back pain Carpal tunnel syndrome COVID-19 vaccine series completed Crohn's disease Dizziness Environmental allergies Fever of unknown origin Fibromyalgia Gastroparesis GERD (gastroesophageal reflux disease) Herniated cervical disc Hx of migraines Intra-abdominal abscess Intra-abdominal abscess Iron deficiency anemia Leukocytosis Perforated viscus PONV (postoperative nausea and vomiting) Recurrent vomiting Shock Thoracic disc herniation Vitamin D deficiency Surgical History History of esophagogastroduodenoscopy (EGD) History of surgery History of tonsillectomy History of tubal ligation Hx of cholecystectomy Hx of colonoscopy Hx of fusion of cervical spine Hx of shoulder surgery Status post colostomy Social History Household Members: None Housing: House Are you a primary pet care assistant to a significant other at home: No Do you presently have visiting nurse or other home services: No Unable to assess alcohol history related to: Unknown Alcohol intake: never Patient Tobacco Use Status: Former Tobacco user Quit Date: 1999 Tobacco use type: Cigarette Smoked in Last 30 Days: No e-Cigarette/Vaping Use: Never Used Use of substances other than those prescribed or required for medical reasons: No Advance Directives: Yes Advance Directives on File: Yes Advance Directives Date on File: 06/23/20 service: No Current occupational status: employed Meds Allergies Allergy/AdvReac Type Severity Reaction Status Date / Time omeprazole [OMEPRAZOLE] Allergy Severe N/V Verified 10/26/22 09:01 tramadol [From Ultram] Allergy Intermediate ITCHING Verified 10/26/22 09:01 ibuprofen [From Motrin] Allergy Unknown Verified 10/26/22 09:01 Active Medications: Current Medications Pharmacy Consult (Consult Rx Perform Med Rec) 1 each MISCELLANE ONCE PRN PRN Reason: Consult order Home Medications Medication Instructions Recorded Confirmed Last Taken Type methocarbamol 750 mg tablet 750 mg PO TID 10/21/20 10/26/22 10/26/22 History pantoprazole 40 mg tablet,delayed 40 mg PO BID 10/21/20 10/26/22 10/26/22 History release (Protonix) ondansetron 8 mg disintegrating 1 tab PO DAILY PRN Nausea 05/18/22 10/26/22 Unknown History tablet rizatriptan 10 mg tablet 1 tab PO DAILY PRN Migraine 05/18/22 10/26/22 Unknown History Headache fremanezumab-vfrm 225 mg/1.5 mL 225 mg subcut Q30D 08/05/22 10/26/22 2 Weeks Ago History subcutaneous syringe (Ajovcarrie ~10/12/22 Syringe) hydroxyzine HCl 10 mg tablet 10 mg PO TID 10/05/22 10/26/22 Unknown History Physical Exam Vital Signs and Narrative: Vital Signs: Last Vital Signs Temp 97.7 F 10/26/22 09:09 Pulse 90 10/26/22 10:51 Resp 16 10/26/22 09:09 BP 123/70 10/26/22 10:51 Pulse Ox 95 10/26/22 09:09 O2 Del Method 10/26/22 09:09 BMI result Body Mass Index 23.8 Constitutional: Alert, in no acute distress. Mental Status: Oriented to person, place and time. Eyes: Pupils are equal, round, and reactive to light. Ear, Nose, and Throat: Oropharynx clear, mucous membranes moist. Ears and nose without deformities. Trachea midline. Respiratory: Clear to auscultation bilaterally. No wheezing, rales, or rhonchi. Cardiovascular: S1, S2 regular. No murmurs, rubs, or gallops. Gastrointestinal: Abdomen soft, diffusely tender, non-distended. Normal bowel sounds. Neurologic: Cranial nerves II-XII are grossly intact. No focal neurological deficits. Moves all extremities spontaneously. Skin: No rashes or lesions noted. Musculoskeletal: No cyanosis or clubbing. Extremities: No edema. Psychiatric: Normal mood and affect. Results Labs 10/26/22 09:26 10/26/22 09:26 Labs: Laboratory Results - last 24 hr 10/26/22 10/26/22 10/26/22 09:26 09:26 09:26 MCV 82.6 MCH 28.3 MCHC 34.3 RDW 13.1 Plt Count 202 D MPV 10.2 Immature Gran % (Auto) 0.2 Neut % (Auto) 61.5 Lymph % (Auto) 31.8 [place] % (Auto) 5.2 Eos % (Auto) 1.0 Baso % (Auto) 0.3 Lymph # (Auto) 1.8 [place] # (Auto) 0.3 Eos # (Auto) 0.1 Baso # (Auto) 0.0 Abs Immat Gran (auto) 0.01 Absolute Neuts (auto) 3.5 Absolute Nucleated RBC 0.000 Nucleated RBC % (auto) 0.0 Anion Gap 19 Estim Creat Clear Calc 65.8 Estimated GFR > 60 POC Glucose Fasting Glucose 119 H Lactic Acid 2.2 H* Lactic Acid F/U @ 2Hr Calcium 8.4 D Magnesium < 0.6 L* Total Bilirubin 0.6 AST 35 H ALT 47 H Alkaline Phosphatase 202 H Troponin I High Sens Total Protein 7.5 Albumin 4.0 Influenza Type A (PCR) Influenza Type B (PCR) RSV RNA Qual (PCR) SARS-CoV-2 RNA (RT-PCR) 10/26/22 10/26/22 10/26/22 10:24 10:31 10:57 MCV MCH MCHC RDW Plt Count MPV Immature Gran % (Auto) Neut % (Auto) Lymph % (Auto) [place] % (Auto) Eos % (Auto) Baso % (Auto) Lymph # (Auto) [place] # (Auto) Eos # (Auto) Baso # (Auto) Abs Immat Gran (auto) Absolute Neuts (auto) Absolute Nucleated RBC Nucleated RBC % (auto) Anion Gap Estim Creat Clear Calc Estimated GFR POC Glucose 104 Fasting Glucose Lactic Acid Lactic Acid F/U @ 2Hr Calcium Magnesium Total Bilirubin AST ALT Alkaline Phosphatase Troponin I High Sens < 3.5 Total Protein Albumin Influenza Type A (PCR) NEGATIVE Influenza Type B (PCR) NEGATIVE RSV RNA Qual (PCR) NEGATIVE SARS-CoV-2 RNA (RT-PCR) NEGATIVE 10/26/22 12:26 MCV MCH MCHC RDW Plt Count MPV Immature Gran % (Auto) Neut % (Auto) Lymph % (Auto) [place] % (Auto) Eos % (Auto) Baso % (Auto) Lymph # (Auto) [place] # (Auto) Eos # (Auto) Baso # (Auto) Abs Immat Gran (auto) Absolute Neuts (auto) Absolute Nucleated RBC Nucleated RBC % (auto) Anion Gap Estim Creat Clear Calc Estimated GFR POC Glucose Fasting Glucose Lactic Acid Lactic Acid F/U @ 2Hr 0.8 Calcium Magnesium Total Bilirubin AST ALT Alkaline Phosphatase Troponin I High Sens Total Protein Albumin Influenza Type A (PCR) Influenza Type B (PCR) RSV RNA Qual (PCR) SARS-CoV-2 RNA (RT-PCR) Imaging Radiologist's Impressions: Impressions Chest X-Ray 10/26/22 10:20 IMPRESSION: No acute cardiopulmonary process. Assessment and Plan (1) Hypomagnesemia: Status: Acute (2) Weakness: Status: Acute (3) Dizziness: Status: Acute Plan Pt is a 62-year-old female with a PMH significant for?Crohn's disease, recent 4-month long hospitalization for intestinal perforation with multiple abscesses then toxic megacolon d/t C difficile colitis requiring subtotal colectomy, who presents to the ED with severe?weakness and shaking. Pt will be admitted to the hospital for symptomatic hypomagnesmia. Hypomagnamesmia Unclear etiology, possibly d/t chronic N/V or PPI Hold pantoprazole 40 mg p.o. bid, switch to Prilosec 20 mg p.o. qd Patient received Mag 2 mg IV in the ED Additional Mag 2 mg IV Acute lactic acidosis, resolved Pt's lactic acid elevated at 2.2 at time of presentation, repeat WNL at 0.8 Likely due to dehydration, not sepsis Vertigo Unclear etiology, possibly due to hypomagnesmia Monitor Migraines Continue rizatriptan prn Nausea and vomiting, chronic Continue ondansetron p.r.n. Abdominal pain, chronic Continue hydromorphone p.r.n. Full Code Attending:?Dr. Hurtado DVT Prophylaxis: Lovenox Pt will require a hospitalization of at least two nights for treatment of?symptomatic hypomagnesmia. Time Spent With Patient Time: Total time managing care of this patient today ____ minutes. Quality Stroke Does the patient have a stroke diagnosis?: No VTE Prior VTE?: No VTE Risk Level:: Medical - moderate - high VTE Device Contraindication: Treatment Not Indicated VTE Drug Contraindication: N/A - Med Ordered
[2022-10-26 13:18] VITALS: BP 108/75; PULSE 79; RESP 18; TEMP 36.9; O2SAT 98
[2022-10-26] MEDS: Omeprazole 20 MG CAPSULE.DR PO (14:19)
[2022-10-26] MEDS: Enoxaparin Sodium 40 MG/0.4 ML SYRINGE SUBCUT (14:19)
[2022-10-26] MEDS: hydrOXYzine HCL 10 MG TABLET PO ×2 (14:19→21:12)
[2022-10-26] MEDS: HYDROmorphone HCl 2 MG TABLET PO ×2 (14:20→22:54)
[2022-10-26] MEDS: 0.9 % Sodium Chloride Flush 3 ML SYRINGE IVFLUSH ×2 (14:20→22:23)
[2022-10-26 14:34] LABS: Appearance Urine Cloudy; Color Urine Dark Yellow; Glucose Urine UA Negative (Negative); Leukocyte Esterase Urine Trace (Negative); Nitrite Urine Negative (Negative); PH 5.5 (5.0-9.0); Specific Gravity - Urine >= 1.030 (1.005-1.025); UMIC TRIGGER UACC YES; Urine Blood Negative (Negative); Urine Ketones 15 mg/dL (Negative); Urine Protein 30 (1+) mg/dL (Neg-Trace)
[2022-10-26 14:48] LABS: Bacteria Urine None Seen (None Seen); Granular Casts Urine Present; RBC Urine 0-2 /HPF (0-2); WBC Urine 0-5 /HPF (0-5)
--- NOTE | 2022-10-26 16:14 | MHC.CM.PN ---
Met with admitted patient with bed assignment pending. Pt has extensive medical/surgical history. Admitted to [facility] 05/18/22-08/01/22 and then 08/05/22 - 09/22/22. Was discharged home with [facility] for SN and PT. PT now comes weekly and visiting nurse comes every other day for drsg changes. Will notify [facility] of admission in [facility]. Pt states she spoke with her visiting nurse today. Pt tells CM she speaks with a therapist on line to process all the medical/surgical/near experiences she has had since July. Lives with and step-son. Was employed prior to recent illness. Uses a walker, shower chair and wheelchair. Has been unable to shower, as she is too weak to step over the tub. Has been sponge bathing since recent discharge. Pt would like the FLU shot if possible. Pfizer x3 and booster. HCP on file. D/C plan: home with continued [facility]. Family will transport.
--- NOTE | 2022-10-26 19:22 | PC.NURSE ---
assumed care of pt, aox4, calm/cooperative, requesting refreshments and food, hospital dinner provided, pt vomited prior to meal about 100cc
--- NOTE | 2022-10-26 20:03 | PC.NURSE ---
Ileostomy emptied and cleaned with KAYLA Singh
--- NOTE | 2022-10-26 21:06 | PC.NURSE ---
report given to TREVON Herman. Pt to room 446
--- NOTE | 2022-10-26 21:58 | PC.NURSE ---
Tigertext to Dr Mckinney pt has migraine sumatriptan to be ordered
--- NOTE | 2022-10-26 22:02 | PC.NURSE ---
ileostomy bag drained 50cc, mushy/yellow consistency, surrounding area cleaned
[2022-10-26 22:18] VITALS: BP 135/66; PULSE 76; RESP 19; TEMP 36.6; O2SAT 95
[2022-10-26] MEDS: SUMAtriptan succinate 50 MG TABLET PO (22:22)
[2022-10-26] MEDS: Cyclobenzaprine HCl 10 MG TABLET PO (22:22)
[2022-10-26 22:36] VITALS: BMI 23.9
[2022-10-27] VITALS: BP 119/63; PULSE 77; RESP 18; TEMP 36.8; O2SAT 98
[2022-10-27 03:40] VITALS: BP 117/73; PULSE 83; RESP 18; TEMP 37.1; O2SAT 96
[2022-10-27] MEDS: HYDROmorphone HCl 2 MG TABLET PO ×3 (06:11→18:59)
[2022-10-27 06:12] LABS: Hematocrit 35.2 % (37.0-47.0); Hemoglobin 11.9 g/dl (12.0-16.0); Mean Corpuscular HGB Conc 33.8 g/dl (31.0-35.0); Mean Corpuscular Hemoglobin 28.5 pg (27.0-33.0); Mean Corpuscular Volume 84.4 fL (80.0-98.0); Mean Platelet Volume 10.3 fL (9.4-12.3); Platelet Count 180 X10*3/uL (160-400); Red Blood Count 4.17 X10*6/uL (4.20-5.50); Red Cell Distribution Width 13.1 % (11.0-16.0); White Blood Count 4.7 X10*3/uL (4.8-10.8)
[2022-10-27 07:34] VITALS: BP 127/60; PULSE 87; RESP 16; TEMP 36.7; O2SAT 98
[2022-10-27 07:41] LABS: Anion Gap 13 (12-20); Blood Urea Nitrogen 6 mg/dL (9-16); Calcium 8.2 mg/dL (8.4-10.2); Carbon Dioxide 26 mmol/L (22-29); Chloride 106 mmol/L (96-108); Creatinine Clr Calc Pharmacy 79.1; Estimated Glomerular Filt Rate > 60; Glucose Random 92 mg/dL (60-115); Magnesium 1.5 mg/dL (1.6-2.6); Potassium 3.1 mmol/L (3.3-5.1); Sodium 142 mmol/L (135-145)
[2022-10-27] MEDS: hydrOXYzine HCL 10 MG TABLET PO ×3 (08:29→20:44)
[2022-10-27] MEDS: Cyclobenzaprine HCl 10 MG TABLET PO ×2 (08:29→20:44)
[2022-10-27] MEDS: 0.9 % Sodium Chloride Flush 3 ML SYRINGE IVFLUSH ×2 (08:29→16:47)
--- NOTE | 2022-10-27 09:48 | P.PNIM_ITS ---
Subjective Subjective Date of Service: 10/27/22 Interval History: Complaining of headache, no nausea, no vomiting, no abdominal pain, finished breakfast this morning, watery stool in colostomy bag. Review of Systems General no dizziness no fever chills. CVS no chest pain, no palpitation. Respiratory no cough no sob. Gastrointestinal no nausea no vomiting, no abdominal pain Review of Systems: Yes all other systems are reviewed and are negative Physical Exam Vital Signs: Vital Signs: Last Vital Signs Temp 98.0 F 10/27/22 07:34 Pulse 87 10/27/22 07:34 Resp 16 10/27/22 07:34 BP 127/60 10/27/22 07:34 Pulse Ox 98 10/27/22 07:34 O2 Del Method 10/27/22 07:34 BMI result Body Mass Index 23.9 Const: Other: Gen:? Awake alert x3 in no acute dis tress Neck: supple Lungs: clear to a uscultation bilate rally Heart: regul ar rate and rhythm , no murmurs Abd: soft, nontender , colostomy back wit h liquidy stool Ex t: no edema Skin: warm/well-perfused Neuro: alert and oriented x3, no fo amara findings Psych : appropriate affe ct Objective Data Active Medications Acetaminophen (Acetaminophen 325 Mg Tablet) 650 mg PO Q6H PRN PRN Reason: Pain, Mild (Pain Scale 1-3) Cyclobenzaprine HCl (Cyclobenzaprine Hcl 10 Mg Tablet) 10 mg PO BID [facility] Last Admin: 10/27/22 08:29 Dose: 10 mg Documented By: CARINE Enoxaparin Sodium (Enoxaparin Sodium 40 Mg/0.4 Ml Syringe) 40 mg SUBCUT Q24H [facility] Last Admin: 10/26/22 14:19 Dose: 40 mg Documented By: KIM-ALEX Hydromorphone HCl (Hydromorphone Hcl 2 Mg Tablet) 2 mg PO Q6H PRN PRN Reason: pain (scale score 1-3) Last Admin: 10/27/22 06:11 Dose: 2 mg Documented By: KIM-FARNE Hydroxyzine HCl (Hydroxyzine Hcl 10 Mg Tablet) 10 mg PO TID [facility] Last Admin: 10/27/22 08:29 Dose: 10 mg Documented By: CARINE Non-Formulary Medication (Rizatriptan) 1 tab PO DAILY PRN PRN Reason: Migraine Headache Ondansetron HCl (Ondansetron Hcl 4 Mg/2 Ml Vial) 4 mg IVPUSH Q8H PRN PRN Reason: Nausea and Vomiting Last Admin: 10/26/22 14:19 Dose: 4 mg Documented By: GERALD Pharmacy Consult (Consult Rx Perform Med Rec) 1 each MISCELLANE ONCE PRN PRN Reason: Consult order Sodium Chloride (0.9 % Sodium Chloride Flush 3 Ml Syringe) 3 ml IVFLUSH QSHIFT [facility] Last Admin: 10/27/22 08:29 Dose: 3 ml Documented By: NGENOAL Labs 10/27/22 05:45 10/27/22 05:45 Labs: Laboratory Results - last 24 hr 10/26/22 10/26/22 10/26/22 09:26 10:24 10:31 MCV MCH MCHC RDW Plt Count MPV Absolute Nucleated RBC Nucleated RBC % (auto) Anion Gap 19 Estim Creat Clear Calc 65.8 Estimated GFR > 60 POC Glucose 104 Random Glucose Fasting Glucose 119 H Lactic Acid F/U @ 2Hr Calcium 8.4 D Magnesium < 0.6 L* Total Bilirubin 0.6 AST 35 H ALT 47 H Alkaline Phosphatase 202 H Troponin I High Sens Total Protein 7.5 Albumin 4.0 Urine Color Urine Appearance Urine pH Ur Specific [place] Urine Protein Urine Glucose (UA) Urine Ketones Urine Blood Urine Nitrite Ur Leukocyte Esterase Urine RBC Urine WBC Ur Squamous Epith Cells Urine Bacteria Hyaline Casts Granular Casts Influenza Type A (PCR) NEGATIVE Influenza Type B (PCR) NEGATIVE RSV RNA Qual (PCR) NEGATIVE SARS-CoV-2 RNA (RT-PCR) NEGATIVE 10/26/22 10/26/22 10/26/22 10:57 12:26 14:24 MCV MCH MCHC RDW Plt Count MPV Absolute Nucleated RBC Nucleated RBC % (auto) Anion Gap Estim Creat Clear Calc Estimated GFR POC Glucose Random Glucose Fasting Glucose Lactic Acid F/U @ 2Hr 0.8 Calcium Magnesium Total Bilirubin AST ALT Alkaline Phosphatase Troponin I High Sens < 3.5 Total Protein Albumin Urine Color Dark Yellow Urine Appearance Cloudy Urine pH 5.5 Ur Specific [place] >= 1.030 H Urine Protein 30 (1+) H Urine Glucose (UA) Negative Urine Ketones 15 Urine Blood Negative Urine Nitrite Negative Ur Leukocyte Esterase Trace H Urine RBC 0-2 Urine WBC 0-5 Ur Squamous Epith Cells 11-20 Urine Bacteria None Seen Hyaline Casts 3-5 Granular Casts Present Influenza Type A (PCR) Influenza Type B (PCR) RSV RNA Qual (PCR) SARS-CoV-2 RNA (RT-PCR) 10/27/22 10/27/22 05:45 05:45 MCV 84.4 MCH 28.5 MCHC 33.8 RDW 13.1 Plt Count 180 MPV 10.3 Absolute Nucleated RBC 0.000 Nucleated RBC % (auto) 0.0 Anion Gap 13 Estim Creat Clear Calc 79.1 Estimated GFR > 60 POC Glucose Random Glucose 92 Fasting Glucose Lactic Acid F/U @ 2Hr Calcium 8.2 L Magnesium 1.5 L Total Bilirubin AST ALT Alkaline Phosphatase Troponin I High Sens Total Protein Albumin Urine Color Urine Appearance Urine pH Ur Specific [place] Urine Protein Urine Glucose (UA) Urine Ketones Urine Blood Urine Nitrite Ur Leukocyte Esterase Urine RBC Urine WBC Ur Squamous Epith Cells Urine Bacteria Hyaline Casts Granular Casts Influenza Type A (PCR) Influenza Type B (PCR) RSV RNA Qual (PCR) SARS-CoV-2 RNA (RT-PCR) Microbiology Microbiology Results: Microbiology 10/26/22 09:26 Blood Culture - Final Blood - Venous Assessment and Plan (1) Hypomagnesemia: Status: Acute (2) Weakness: Status: Acute Plan 62-year-old female with a PMH significant for?Crohn's disease, recent 4-month long hospitalization for intestinal perforation with multiple abscesses then toxic megacolon d/t C difficile colitis requiring subtotal colectomy, who presents to the ED with severe?weakness and shaking. Pt will be admitted to the hospital for symptomatic hypomagnesmia. Hypomagnamesmia Unclear etiology, possibly d/t chronic N/V or PPI Hold pantoprazole 40 mg p.o. bid, patient takes it for nausea, intolerant to omeprazole will place on Pepcid Magnesium improved from less than 0.6-1.5 today will repeat IV magnesium 1 g fol low labs. Hypokalemia due to decreased by mouth intake and watery stool in last 24 hours replace and follow labs. Acute lactic acidosis, resolved. Pt's lactic acid elevated at 2.2 at time of presentation, repeat WNL at 0.8 Likely due to dehydration, not sepsis Vertigo Unclear etiology, possibly due to hypomagnesmia Monitor Migraines Complaining of headache this morning will give sumatriptan , rizatriptan NF Nausea and vomiting, chronic Continue ondansetron p.r.n. Abdominal pain, chronic Continue hydromorphone p.r.n. Full Code DVT Prophylaxis: Lovenox Pt will require continued inpatient hospitalization for treatment of?symptomatic hypomagnesmia. Time Spent With Patient Time: Total time managing care of this patient today ____ minutes. Quality Stroke Does the patient have a stroke diagnosis?: No VTE Prior VTE?: No VTE Risk Level:: Medical - moderate - high VTE Device Contraindication: Treatment Not Indicated VTE Drug Contraindication: N/A - Med Ordered
[2022-10-27] MEDS: SUMAtriptan succinate 100 MG TABLET PO (10:57)
[2022-10-27] MEDS: Potassium Chloride ER 20 MEQ TAB.ER.PRT 40 MEQ PO (10:58)
[2022-10-27] MEDS: Famotidine 20 MG TABLET PO (10:58)
[2022-10-27 11:26] VITALS: BP 112/61; PULSE 86; RESP 16; TEMP 36.6; O2SAT 96
--- NOTE | 2022-10-27 12:38 | MHC.CM.PN ---
EMR REVIEWED PER MD ROUNDS, PT NOT MEDICALLY CLEARED FOR DC (SYMPTOMATIC HYPOMAGNESEMIA) CM WILL CONTINUE TO FOLLOW
[2022-10-27] MEDS: Enoxaparin Sodium 40 MG/0.4 ML SYRINGE SUBCUT (13:05)
[2022-10-27] MEDS: Acetaminophen 325 MG TABLET 650 MG PO ×2 (13:06→19:00)
[2022-10-27 15:50] VITALS: BP 128/73; PULSE 83; RESP 19; TEMP 36.4; O2SAT 98
[2022-10-27] MEDS: ondansetron HCL 4 MG/2 ML VIAL IVPUSH (19:01)
[2022-10-27 19:05] VITALS: BP 113/56; PULSE 88; RESP 19; TEMP 36.4; O2SAT 97
[2022-10-28] VITALS (7 sets, daily range): BP systolic 114–142; BP diastolic 60–75; PULSE 69–100; RESP 14–18; TEMP 36.3–37.2; O2SAT 96–99
[2022-10-28] MEDS: 0.9 % Sodium Chloride Flush 3 ML SYRINGE IVFLUSH ×4 (00:04→20:25)
[2022-10-28] MEDS: HYDROmorphone HCl 2 MG TABLET PO ×3 (06:31→19:53)
[2022-10-28 07:44] LABS: Anion Gap 14 (12-20); Blood Urea Nitrogen 9 mg/dL (9-16); Calcium 9.1 mg/dL (8.4-10.2); Carbon Dioxide 22 mmol/L (22-29); Chloride 107 mmol/L (96-108); Creatinine Clr Calc Pharmacy 71.8; Estimated Glomerular Filt Rate > 60; Glucose Random 125 mg/dL (60-115); Magnesium 1.3 mg/dL (1.6-2.6); Sodium 139 mmol/L (135-145)
[2022-10-28] MEDS: Magnesium Sulfate/H2O 2 GM/50 ML PIGGYBACK IV (08:48)
[2022-10-28] MEDS: Magnesium Oxide 400 MG TABLET PO ×2 (08:48→16:37)
[2022-10-28] MEDS: Famotidine 20 MG TABLET PO (08:49)
[2022-10-28] MEDS: hydrOXYzine HCL 10 MG TABLET PO ×3 (08:49→20:24)
[2022-10-28] MEDS: Cyclobenzaprine HCl 10 MG TABLET PO ×2 (08:53→20:21)
--- NOTE | 2022-10-28 10:35 | HO.PM.IMPN ---
Subjective Subjective Date of Service: 10/28/22 Interval History: weakness improving Physical Exam Vital Signs: Vital Signs: Last Vital Signs Temp 98 F 10/28/22 08:00 Pulse 85 10/28/22 08:00 Resp 18 10/28/22 08:00 BP 129/69 10/28/22 08:00 Pulse Ox 98 10/28/22 08:00 O2 Del Method 10/28/22 04:00 BMI result Body Mass Index 23.9 General: AO X 3, no acute distress Resp: CTA bilateral, no accessory muscles used CVS: S1,S2,RRR GI: soft, non tender, non distended Neuro: motor grossly intact, alert Psych: appropriate affect, appropriate insight Objective Data Active Medications Acetaminophen (Acetaminophen 325 Mg Tablet) 650 mg PO Q6H PRN PRN Reason: Pain, Mild (Pain Scale 1-3) Last Admin: 10/27/22 19:00 Dose: 650 mg Documented By: JENNIFER Cyclobenzaprine HCl (Cyclobenzaprine Hcl 10 Mg Tablet) 10 mg PO BID [facility] Last Admin: 10/28/22 08:53 Dose: 10 mg Documented By: ISH Enoxaparin Sodium (Enoxaparin Sodium 40 Mg/0.4 Ml Syringe) 40 mg SUBCUT Q24H [facility] Last Admin: 10/27/22 13:05 Dose: 40 mg Documented By: CARINE Famotidine (Famotidine 20 Mg Tablet) 20 mg PO DAILY [facility] Last Admin: 10/28/22 08:49 Dose: 20 mg Documented By: ISH Hydromorphone HCl (Hydromorphone Hcl 2 Mg Tablet) 2 mg PO Q6H PRN PRN Reason: pain (scale score 1-3) Last Admin: 10/28/22 06:31 Dose: 2 mg Documented By: JONATHAN Hydroxyzine HCl (Hydroxyzine Hcl 10 Mg Tablet) 10 mg PO TID [facility] Last Admin: 10/28/22 08:49 Dose: 10 mg Documented By: ISH Magnesium Oxide (Magnesium Oxide 400 Mg Tablet) 400 mg PO BIDPC [facility] Last Admin: 10/28/22 08:48 Dose: 400 mg Documented By: ISH Non-Formulary Medication (Rizatriptan) 1 tab PO DAILY PRN PRN Reason: Migraine Headache Ondansetron HCl (Ondansetron Hcl 4 Mg/2 Ml Vial) 4 mg IVPUSH Q8H PRN PRN Reason: Nausea and Vomiting Last Admin: 10/27/22 19:01 Dose: 4 mg Documented By: JENNIFER Pharmacy Consult (Consult Rx Perform Med Rec) 1 each MISCELLANE ONCE PRN PRN Reason: Consult order Sodium Chloride (0.9 % Sodium Chloride Flush 3 Ml Syringe) 3 ml IVFLUSH QSHIFT [facility] Last Admin: 10/28/22 08:49 Dose: 3 ml Documented By: ISH Labs 10/27/22 05:45 10/28/22 06:38 Labs: Laboratory Results - last 24 hr 10/28/22 06:38 Anion Gap 14 Estim Creat Clear Calc 71.8 Estimated GFR > 60 Random Glucose 125 H Calcium 9.1 D Magnesium 1.3 L* Microbiology Microbiology Results: Microbiology 10/26/22 09:26 Blood Culture - Preliminary Blood - Venous No growth after 24 hours. Assessment and Plan (1) Hypomagnesemia: Status: Acute (2) Weakness: Status: Acute Plan 62-year-old female with a PMH significant for?Crohn's disease, recent 4-month long hospitalization for intestinal perforation with multiple abscesses then toxic megacolon d/t C difficile colitis requiring subtotal colectomy, who presented to the ED with severe?weakness and shaking. found to have severe hypomagnesmia. severe Hypomagnamesmia stopped ppi continue replacement and monitoring Acute lactic acidosis resolved. Pt's lactic acid elevated at 2.2 at time of presentation, repeat WNL at 0.8 Likely due to dehydration, not sepsis Vertigo Unclear etiology, possibly due to hypomagnesmia Monitor Migraines Complaining of headache this morning will give sumatriptan , rizatriptan NF Nausea and vomiting, chronic Continue ondansetron p.r.n. Abdominal pain, chronic Continue hydromorphone p.r.n. Full Code DVT Prophylaxis: Lovenox reason for continued hospitalization:hypomagnesemia Time Spent With Patient Time: Total time managing care of this patient today ____ minutes. Quality Stroke Does the patient have a stroke diagnosis?: No VTE Prior VTE?: No VTE Risk Level:: Medical - moderate - high VTE Device Contraindication: Treatment Not Indicated VTE Drug Contraindication: N/A - Med Ordered
[2022-10-28] MEDS: Acetaminophen 325 MG TABLET 650 MG PO (12:58)
[2022-10-28] MEDS: Enoxaparin Sodium 40 MG/0.4 ML SYRINGE SUBCUT (13:08)
[2022-10-28] MEDS: SUMAtriptan succinate 25 MG TABLET PO (13:30)
[2022-10-28] MEDS: ondansetron HCL 4 MG/2 ML VIAL IVPUSH (20:29)
[2022-10-29] MEDS: HYDROmorphone HCl 2 MG TABLET PO ×4 (03:21→22:18)
[2022-10-29 04:00] VITALS: BP 129/74; PULSE 82; RESP 15; TEMP 36.7; O2SAT 97
[2022-10-29 06:30] LABS: Hematocrit 33.9 % (37.0-47.0); Hemoglobin 11.6 g/dl (12.0-16.0); Mean Corpuscular HGB Conc 34.2 g/dl (31.0-35.0); Mean Corpuscular Hemoglobin 28.9 pg (27.0-33.0); Mean Corpuscular Volume 84.5 fL (80.0-98.0); Platelet Count 203 X10*3/uL (160-400); Red Blood Count 4.01 X10*6/uL (4.20-5.50); Red Cell Distribution Width 12.9 % (11.0-16.0); White Blood Count 4.9 X10*3/uL (4.8-10.8)
[2022-10-29 06:50] LABS: Anion Gap 13 (12-20); Blood Urea Nitrogen 12 mg/dL (9-16); Calcium 9.5 mg/dL (8.4-10.2); Carbon Dioxide 25 mmol/L (22-29); Chloride 106 mmol/L (96-108); Creatinine Clr Calc Pharmacy 75.3; Estimated Glomerular Filt Rate > 60; Glucose Fasting 124 mg/dL (60-99); Magnesium 1.6 mg/dL (1.6-2.6); Potassium 3.8 mmol/L (3.3-5.1); Sodium 140 mmol/L (135-145)
[2022-10-29 08:00] VITALS: BP 153/65; PULSE 91; RESP 19; TEMP 36.3; O2SAT 98
--- NOTE | 2022-10-29 09:32 | P.PNIM_ITS ---
Subjective Subjective Date of Service: 10/29/22 Interval History: weakness improving Physical Exam Vital Signs: Vital Signs: Last Vital Signs Temp 97.4 F 10/29/22 08:00 Pulse 91 10/29/22 08:00 Resp 19 10/29/22 08:00 BP 153/65 H 10/29/22 08:00 Pulse Ox 98 10/29/22 08:00 O2 Del Method 10/29/22 08:00 BMI result Body Mass Index 23.9 General: AO X 3, no acute distress Resp: CTA bilateral, no accessory muscles used CVS: S1,S2,RRR GI: soft, non tender, non distended Neuro: motor grossly intact, alert Psych: appropriate affect, appropriate insight Objective Data Active Medications Acetaminophen (Acetaminophen 325 Mg Tablet) 650 mg PO Q6H PRN PRN Reason: Pain, Mild (Pain Scale 1-3) Last Admin: 10/28/22 12:58 Dose: 650 mg Documented By: ISH Cyclobenzaprine HCl (Cyclobenzaprine Hcl 10 Mg Tablet) 10 mg PO BID [facility] Last Admin: 10/28/22 20:21 Dose: 10 mg Documented By: RORY Enoxaparin Sodium (Enoxaparin Sodium 40 Mg/0.4 Ml Syringe) 40 mg SUBCUT Q24H [facility] Last Admin: 10/28/22 13:08 Dose: 40 mg Documented By: ISH Famotidine (Famotidine 20 Mg Tablet) 20 mg PO DAILY [facility] Last Admin: 10/28/22 08:49 Dose: 20 mg Documented By: ISH Hydromorphone HCl (Hydromorphone Hcl 2 Mg Tablet) 2 mg PO Q6H PRN PRN Reason: pain (scale score 1-3) Last Admin: 10/29/22 03:21 Dose: 2 mg Documented By: JONATHAN Hydroxyzine HCl (Hydroxyzine Hcl 10 Mg Tablet) 10 mg PO TID [facility] Last Admin: 10/28/22 20:24 Dose: 10 mg Documented By: RORY Magnesium Oxide (Magnesium Oxide 400 Mg Tablet) 400 mg PO BIDPC [facility] Last Admin: 10/28/22 16:37 Dose: 400 mg Documented By: ISH Non-Formulary Medication (Rizatriptan) 1 tab PO DAILY PRN PRN Reason: Migraine Headache Ondansetron HCl (Ondansetron Hcl 4 Mg/2 Ml Vial) 4 mg IVPUSH Q8H PRN PRN Reason: Nausea and Vomiting Last Admin: 10/28/22 20:29 Dose: 4 mg Documented By: RORY Pharmacy Consult (Consult Rx Perform Med Rec) 1 each MISCELLANE ONCE PRN PRN Reason: Consult order Sodium Chloride (0.9 % Sodium Chloride Flush 3 Ml Syringe) 3 ml IVFLUSH QSHIFT [facility] Last Admin: 10/28/22 20:25 Dose: 3 ml Documented By: RORY Sumatriptan Succinate (Sumatriptan Succinate 25 Mg Tablet) 25 mg PO DAILY PRN PRN Reason: migraine Last Admin: 10/28/22 13:30 Dose: 25 mg Documented By: ISH Labs 10/29/22 05:56 10/29/22 05:56 Labs: Laboratory Results - last 24 hr 10/29/22 10/29/22 05:56 05:56 MCV 84.5 MCH 28.9 MCHC 34.2 RDW 12.9 Plt Count 203 MPV 10.0 Absolute Nucleated RBC 0.000 Nucleated RBC % (auto) 0.0 Anion Gap 13 Estim Creat Clear Calc 75.3 Estimated GFR > 60 Fasting Glucose 124 H Calcium 9.5 Magnesium 1.6 Microbiology Microbiology Results: Microbiology 10/26/22 09:26 Blood Culture - Preliminary Blood - Venous No growth after 48 hours. Assessment and Plan (1) Hypomagnesemia: Status: Acute (2) Weakness: Status: Acute Plan 62-year-old female with a PMH significant for?Crohn's disease, recent 4-month long hospitalization for intestinal perforation with multiple abscesses then toxic megacolon d/t C difficile colitis requiring subtotal colectomy, who presented to the ED with severe?weakness and shaking. found to have severe hypomagnesmia. severe Hypomagnamesmia stopped ppi continue replacement and monitoring improving - 1.6 Acute lactic acidosis resolved. Pt's lactic acid elevated at 2.2 at time of presentation, repeat WNL at 0.8 Likely due to dehydration, not sepsis Vertigo Unclear etiology, possibly due to hypomagnesmia Monitor Migraines Complaining of headache this morning will give sumatriptan , rizatriptan NF Nausea and vomiting, chronic Continue ondansetron p.r.n. Abdominal pain, chronic Continue hydromorphone p.r.n. Full Code DVT Prophylaxis: Lovenox reason for continued hospitalization:hypomagnesemia Time Spent With Patient Time: Total time managing care of this patient today ____ minutes. Quality Stroke Does the patient have a stroke diagnosis?: No VTE Prior VTE?: No VTE Risk Level:: Medical - moderate - high VTE Device Contraindication: Treatment Not Indicated VTE Drug Contraindication: N/A - Med Ordered
[2022-10-29] MEDS: ondansetron HCL 4 MG/2 ML VIAL IVPUSH ×2 (10:24→18:40)
[2022-10-29] MEDS: Famotidine 20 MG TABLET PO (10:26)
[2022-10-29] MEDS: hydrOXYzine HCL 10 MG TABLET PO ×3 (10:26→19:52)
[2022-10-29] MEDS: Magnesium Oxide 400 MG TABLET PO ×2 (10:27→16:39)
[2022-10-29] MEDS: 0.9 % Sodium Chloride Flush 3 ML SYRINGE IVFLUSH ×3 (10:27→19:52)
[2022-10-29] MEDS: Cyclobenzaprine HCl 10 MG TABLET PO ×2 (10:27→19:52)
[2022-10-29] MEDS: SUMAtriptan succinate 25 MG TABLET PO (11:28)
[2022-10-29 12:00] VITALS: BP 146/63; PULSE 74; RESP 16; TEMP 36.7; O2SAT 98
[2022-10-29] MEDS: Enoxaparin Sodium 40 MG/0.4 ML SYRINGE SUBCUT (16:38)
[2022-10-29 19:38] VITALS: BP 124/68; PULSE 98; RESP 15; TEMP 36.1; O2SAT 97
[2022-10-30] VITALS: BP 120/69; PULSE 94; RESP 16; TEMP 36.5; O2SAT 94
[2022-10-30] MEDS: ondansetron HCL 4 MG/2 ML VIAL IVPUSH ×2 (02:43→11:00)
[2022-10-30 02:55] VITALS: BP 119/66; PULSE 83; RESP 14; TEMP 36.4; O2SAT 96
[2022-10-30] MEDS: HYDROmorphone HCl 2 MG TABLET PO ×2 (05:16→11:18)
[2022-10-30] MEDS: Acetaminophen 325 MG TABLET 650 MG PO ×2 (05:16→11:18)
[2022-10-30 07:15] LABS: Hematocrit 34.2 % (37.0-47.0); Hemoglobin 11.8 g/dl (12.0-16.0); Mean Corpuscular HGB Conc 34.5 g/dl (31.0-35.0); Platelet Count 198 X10*3/uL (160-400); Red Blood Count 4.07 X10*6/uL (4.20-5.50); White Blood Count 5.3 X10*3/uL (4.8-10.8)
[2022-10-30 07:24] VITALS: BP 121/66; PULSE 94; RESP 18; TEMP 36.4; O2SAT 93
[2022-10-30 07:39] LABS: Anion Gap 13 (12-20); Blood Urea Nitrogen 11 mg/dL (9-16); Calcium 9.8 mg/dL (8.4-10.2); Carbon Dioxide 26 mmol/L (22-29); Chloride 103 mmol/L (96-108); Creatinine Clr Calc Pharmacy 84.9; Estimated Glomerular Filt Rate > 60; Glucose Fasting 125 mg/dL (60-99); Sodium 138 mmol/L (135-145)
[2022-10-30 07:48] LABS: Magnesium 1.4 mg/dL (1.6-2.6)
[2022-10-30] MEDS: Cyclobenzaprine HCl 10 MG TABLET PO (08:20)
[2022-10-30] MEDS: Famotidine 20 MG TABLET PO (08:20)
[2022-10-30] MEDS: hydrOXYzine HCL 10 MG TABLET PO (08:20)
[2022-10-30] MEDS: Magnesium Oxide 400 MG TABLET PO (08:21)
[2022-10-30] MEDS: 0.9 % Sodium Chloride Flush 3 ML SYRINGE IVFLUSH (08:21)
--- NOTE | 2022-10-30 09:27 | P.PNIM_ITS ---
Subjective Subjective Date of Service: 10/30/22 Interval History: weakness improving Physical Exam Vital Signs: Vital Signs: Last Vital Signs Temp 97.6 F 10/30/22 07:24 Pulse 94 10/30/22 07:24 Resp 18 10/30/22 07:24 BP 121/66 10/30/22 07:24 Pulse Ox 93 10/30/22 07:24 O2 Del Method 10/30/22 07:24 BMI result Body Mass Index 23.9 Objective Data Active Medications Acetaminophen (Acetaminophen 325 Mg Tablet) 650 mg PO Q6H PRN PRN Reason: Pain, Mild (Pain Scale 1-3) Last Admin: 10/30/22 05:16 Dose: 650 mg Documented By: EDDI Cyclobenzaprine HCl (Cyclobenzaprine Hcl 10 Mg Tablet) 10 mg PO BID [facility] Last Admin: 10/30/22 08:20 Dose: 10 mg Documented By: INDIRA Enoxaparin Sodium (Enoxaparin Sodium 40 Mg/0.4 Ml Syringe) 40 mg SUBCUT Q24H [facility] Last Admin: 10/29/22 16:38 Dose: 40 mg Documented By: CARLEEN Famotidine (Famotidine 20 Mg Tablet) 20 mg PO DAILY [facility] Last Admin: 10/30/22 08:20 Dose: 20 mg Documented By: INDIRA Hydromorphone HCl (Hydromorphone Hcl 2 Mg Tablet) 2 mg PO Q6H PRN PRN Reason: pain (scale score 1-3) Last Admin: 10/30/22 05:16 Dose: 2 mg Documented By: EDDI Hydroxyzine HCl (Hydroxyzine Hcl 10 Mg Tablet) 10 mg PO TID [facility] Last Admin: 10/30/22 08:20 Dose: 10 mg Documented By: INDIRA Magnesium Oxide (Magnesium Oxide 400 Mg Tablet) 400 mg PO BIDPC [facility] Last Admin: 10/30/22 08:21 Dose: 400 mg Documented By: INDIRA Ondansetron HCl (Ondansetron Hcl 4 Mg/2 Ml Vial) 4 mg IVPUSH Q8H PRN PRN Reason: Nausea and Vomiting Last Admin: 10/30/22 02:43 Dose: 4 mg Documented By: EDDI Pharmacy Consult (Consult Rx Perform Med Rec) 1 each MISCELLANE ONCE PRN PRN Reason: Consult order Sodium Chloride (0.9 % Sodium Chloride Flush 3 Ml Syringe) 3 ml IVFLUSH QSHIFT [facility] Last Admin: 10/30/22 08:21 Dose: 3 ml Documented By: INDIRA Sumatriptan Succinate (Sumatriptan Succinate 25 Mg Tablet) 25 mg PO DAILY PRN PRN Reason: migraine Last Admin: 10/29/22 11:28 Dose: 25 mg Documented By: CARLEEN Labs 10/30/22 06:32 10/30/22 06:32 Labs: Laboratory Results - last 24 hr 10/30/22 10/30/22 06:32 06:32 MCV 84.0 MCH 29.0 MCHC 34.5 RDW 13.0 Plt Count 198 MPV 10.0 Absolute Nucleated RBC 0.000 Nucleated RBC % (auto) 0.0 Anion Gap 13 Estim Creat Clear Calc 84.9 Estimated GFR > 60 Fasting Glucose 125 H Calcium 9.8 Magnesium 1.4 L* Assessment and Plan Time Spent With Patient Time: Total time managing care of this patient today ____ minutes. Quality Stroke Does the patient have a stroke diagnosis?: No VTE Prior VTE?: No VTE Risk Level:: Medical - moderate - high VTE Device Contraindication: Treatment Not Indicated VTE Drug Contraindication: N/A - Med Ordered
--- NOTE | 2022-10-30 09:36 | P.DS_ITS ---
DS: Providers Provider Date of Service: 10/30/22 Date of admission: 10/26/22 13:41 Primary care physician: Deandre Younger MD DS: Diagnosis Discharge Diagnosis (1) Hypomagnesemia: Status: Acute (2) Weakness: Status: Acute DS: Summary Hospital Course Hospital Course: from initial hpi: 62-year-old female with a PMH significant for?Crohn's disease, recent 4-month long hospitalization for intestinal perforation with multiple abscesses then toxic megacolon d/t C difficile colitis requiring subtotal colectomy, who presents to the ED with severe?weakness and shaking.? Patient being seen in General surgery's office for follow-up, we will to ED by Dr. Hagan.? Patient states that she has been feeling weak and shaky for the past week, worse last couple of days.? Patient notes she has been unable to stand and walk by herself the past couple days d/t weakness and shaking. Has had some lightheadedness. On the way to today's doctor's appointment had one episode of vertigo in the car and 2 others in the wheelchair on the way up to the office. Pt denies a previous history of vertigo. Pt also complains of upper abdominal pain, which is chronic since her surgeries and slowly getting better.? Has chronic nausea and vomiting, usually once per day. Patient notes that output in ostomy has been more liquid than normal, but denies any increase in output. Patient denies chest pain/pressure, palpitations.? No shortness of breath.? Denies fever, chills. In the ED labs were significant for no leukocytosis,? magnesium < 0.6, lactic acid 2.2 with repeat of 0.8, negative troponin. CXR showed no acute cardiopulmonary process seen. EKG demonstrated normal sinus rhythm with no evidence of ST elevations or depressions. Pt was treated with IVF, ondansetron, magnesium 2 g IV, and morphine. Pt will be admitted to the hospital for symptomatic hypomagnesmia. hospital course: Patient was admitted for weakness due to severe hypomagnesemia. Her PPI was stopped and she was given magnesium supplement. She will be discharged on magnesium 800 mg b.i.d. patient's acute lactic acidosis due to dehydration not sepsis. Her vertigo is likely due to hypomagnesemia. For migraines she was continued on sumatriptan. patient is feeling better will be discharged home. She should repeat magnesium level in about 1 week. Time Spent with Patient Time attestation: Total time managing care of this patient today ____ minutes. Discharge coordination time: Greater than 30 minutes Quality: Safe Use of Opioids Does Pt have an Active Cancer Diagnosis on the Problem List?: No Quality: Stroke Does the patient have a stroke diagnosis?: No Physical Exam Vital Signs: Vital Signs: Last Vital Signs Temp 97.6 F 10/30/22 07:24 Pulse 94 10/30/22 07:24 Resp 18 10/30/22 07:24 BP 121/66 10/30/22 07:24 Pulse Ox 93 10/30/22 07:24 O2 Del Method 10/30/22 07:24 BMI result Body Mass Index 23.9 General: AO X 3, no acute distress Resp: CTA bilateral, no accessory muscles used CVS: S1,S2,RRR GI: soft, non tender, non distended Neuro: motor grossly intact, alert Psych: appropriate affect, appropriate insight DS: Data Data Completed and Pending Completed studies during hospitalization [Text1]: Procedures Bypass Ileum to Cutaneous, Open Approach (05/18/22) Bypass Sigmoid Colon to Cutaneous, Open Approach (05/18/22) Drainage of Pelvic Cavity with Drainage Device, Percutaneous Approach (05/18/22) Drainage of Peritoneal Cavity with Drainage Device, Percutaneous Approach (08/05/22) Excision of Sigmoid Colon, Open Approach (05/18/22) Excision of Sigmoid Colon, Via Natural or Artificial Opening Endoscopic, Diagnostic (05/18/22) Excision of Transverse Colon, Open Approach (05/18/22) Fluoroscopy of Superior Vena Cava using Low Osmolar Contrast, Guidance (05/18/22) Insertion of Infusion Device into Left Brachial Vein, Percutaneous Approach (05/18/22) Insertion of Infusion Device into Right Atrium, Percutaneous Approach (05/18/22) Insertion of Infusion Device into Superior Vena Cava, Percutaneous Approach (05/18/22) Insertion of Monitoring Device into Upper Artery, Percutaneous Approach (05/18/22) Inspection of Lower Intestinal Tract, Via Natural or Artificial Opening Endoscopic (05/18/22) Introduction of Vasopressor into Central Vein, Percutaneous Approach (05/18/22) Monitoring of Arterial Pressure, Peripheral, Percutaneous Approach (05/18/22) Monitoring of Arterial Pulse, Peripheral, Percutaneous Approach (05/18/22) Release Peritoneum, Open Approach (05/18/22) Respiratory Ventilation, 24-96 Consecutive Hours (05/18/22) Respiratory Ventilation, Greater than 96 Consecutive Hours (05/18/22) Transfusion of Nonautologous Frozen Plasma into Peripheral Vein, Percutaneous Approach (05/18/22) Transfusion of Nonautologous Platelets into Peripheral Vein, Percutaneous Approach (05/18/22) Transfusion of Nonautologous Red Blood Cells into Peripheral Vein, Percutaneous Approach (05/18/22) Ultrasonography of Superior Vena Cava, Guidance (05/18/22) Labs on day of discharge: Laboratory Results - last 24 hr 10/30/22 10/30/22 06:32 06:32 WBC 5.3 RBC 4.07 L Hgb 11.8 L Hct 34.2 L MCV 84.0 MCH 29.0 MCHC 34.5 RDW 13.0 Plt Count 198 MPV 10.0 Absolute Nucleated RBC 0.000 Nucleated RBC % (auto) 0.0 Sodium 138 Potassium 4.0 Chloride 103 Carbon Dioxide 26 Anion Gap 13 BUN 11 Creatinine 0.55 Estim Creat Clear Calc 84.9 Estimated GFR > 60 Fasting Glucose 125 H Calcium 9.8 Magnesium 1.4 L* Preliminary micro results at discharge 10/26/22 09:26 Blood Culture - Preliminary Blood - Venous No growth after 48 hours. Discharge Plan Discharge Anticipated Discharge Date/Time: 10/30/22 09:18 Patient Disposition: Home, Self-Care Discharge Diagnosis: hypomagnesemia Referrals: [facility] [Other] - 1 Week Deandre Younger MD [Primary Care Provider] - 1 Week Discharge Medications: New famotidine 20 mg Tablet 20 mg PO BID Qty: 60 0RF magnesium oxide 400 mg (241.3 mg magnesium) Tablet 800 mg PO BIDPC Qty: 120 0RF Continued Ajovy Syringe 225 mg/1.5 mL syringe 225 mg subcut Q30D Rx Instructions: Monthly on the hydromorphone [Dilaudid] 2 mg tablet 2 mg PO Q6H PRN (Reason: pain (scale score 1-3)) Qty: 30 0RF Rx Instructions: Partial Fill upon patient request. rizatriptan 10 mg tablet 1 tab PO DAILY PRN (Reason: Migraine Headache) ondansetron 8 mg tablet,disintegrating 1 tab PO DAILY PRN (Reason: Nausea) methocarbamol 750 mg tablet 750 mg PO TID hydroxyzine HCl 10 mg tablet 10 mg PO TID Discontinued pantoprazole [Protonix] 40 mg tablet,delayed release (DR/EC) 40 mg PO DAILY Discharge Orders: Discharge Order (Routine); Ordered 10/30/22 Ordered By: Kike Hernandez Diet: Advance to usual diet Activity on Discharge: As tolerated Stand Alone Forms: Patient Portal Discharge page Other Ambulatory Orders: Magnesium (Routine) Timeframe: 1 Week Facility: [facility] - Location: Laboratory Ordered By: Kike Hernandez Care Plan Goals: recovery Health Concerns: hypomag Plan of Treatment: replacement and monitor Assessment: see above
[2022-10-30] MEDS: SUMAtriptan succinate 25 MG TABLET PO (11:31)
== END 2022-10-30 14:01 | disposition home health service (06) | DRG 425 ==
LOC: HO.ED 09:49 → HO.EDOVER 13:55 → HO.IMC 19:28
PROVIDERS: Hospitalist; Nurse Practitioner Family; Admitting Provider Student in an Organized Health Care Education/Training Program; Emergency Provider Emergency Medicine; PCP Internal Medicine; Visit Provider Internal Medicine
DX: E83.42 Hypomagnesemia (principal); E87.21 Acute metabolic acidosis; K21.9 Gastro-esophageal reflux disease without esophagitis; G43.909 Migraine, unspecified, not intractable, without status migrainosus; E86.0 Dehydration; M79.7 Fibromyalgia; Z20.822 Contact with and (suspected) exposure to COVID-19; Z23 Encounter for immunization; Z87.891 Personal history of nicotine dependence; Z88.5 Allergy status to narcotic agent; E87.6 Hypokalemia; Z88.6 Allergy status to analgesic agent; Z88.8 Allergy status to other drugs, medicaments and biological substances; Z79.899 Other long term (current) drug therapy
CPT/HCPCS: 0241U; 36415; 71046; 80048; 80053; 81001; 82947; 83605; 83735; 84484; 85025; 85027; 87040; 90686; 93005; 99285; J1650; J2270; J2405; J3475

== ENCOUNTER 2022-11-02 18:58 | Inpatient (IN) | payer OTHER, SELFPAY ==
--- NOTE | ~2022-11-02 | CT_ITS ---
EXAMINATION: CT ABDOMEN AND PELVIS WITH CONTRAST CLINICAL INFORMATION: Abdominal pain COMPARISON: 08/28/2022 TECHNIQUE: Multidetector volumetric images were obtained from the superior aspect of the liver through the pubic symphysis following administration 85 mL of Omnipaque 350 intravenous contrast. Sagittal and coronal reformatted images were obtained on the technologist's workstation. Oral contrast: No This CT examination was performed using dose optimization techniques as appropriate, variously including the following: *Automated exposure control *Adjustment of mA and/or kV according to patient size (this includes techniques or standardized protocols for targeted exams where dose is matched to indication/reason for exam; i.e. extremities or head) *Use of iterative reconstruction technique DLP: 619 mGy-cm FINDINGS: LUNG BASES: Partial atelectasis of the right middle lobe. Small right pleural effusion. LIVER, GALLBLADDER, AND BILIARY TREE: The liver is normal in size, shape, and attenuation. No focal hepatic lesion or biliary ductal dilatation is present. The gallbladder is unremarkable. PANCREAS: Unremarkable. SPLEEN: Unremarkable. ADRENAL GLANDS: Unremarkable. KIDNEYS AND URETERS: The kidneys are normal in size, shape, and attenuation. No hydronephrosis, hydroureter, or calculi seen. No perinephric stranding. BLADDER: Unremarkable. GASTROINTESTINAL TRACT: Postoperative changes from prior colectomy as well as right lower quadrant ileostomy. A few mildly prominent small bowel segments are present in the left abdomen and lower pelvis, and the possibility of a degree of partial obstruction is difficult to entirely exclude. ABDOMINAL WALL AND PERITONEAL CAVITY: Anterior left upper quadrant collection abutting the spleen and left hepatic lobe measures up to approximately 6.4 x 2.0 cm, compared to 8.4 x 2.4 cm on 08/28/2022. Peripheral enhancement is redemonstrated along with surrounding thickening/stranding. Previously identified collection in the anterior mid to lower abdomen has significantly decreased in size. A left-sided drain remains in place, with no significant fluid component surrounding the drain. There is a small residual collection in the anterior abdomen slightly above the level of the drain measuring up to approximately 1.1 cm in AP dimension, 8.0 cm in transverse dimension, and 4.5 cm in craniocaudal dimension. There is residual stranding in the surrounding mesentery. Redemonstrated postsurgical changes of the anterior abdominal wall including some fluid along the midline below the level of the umbilicus. Fistulous communication to the abdominal cavity is difficult to entirely exclude, though no significant intra-abdominal fluid component is seen just deep to this portion of the abdominal wall, which is where the drain terminates. LYMPH NODES: Normal. VASCULAR: Unremarkable. PELVIC VISCERA: Prominent pelvic vascularity redemonstrated, suggesting pelvic congestion. OSSEOUS STRUCTURES: There is facet arthropathy of the lower lumbar spine. CT/CT abdomen pelvis w IV con IMPRESSION: 1. Significant interval decrease in size of the previously identified collection in the anterior mid to lower abdomen since 08/28/2022. A left-sided drain remains in place, with no significant fluid component surrounding the drain. There is a small residual collection in the anterior abdomen slightly above the level of the drain measuring up to approximately 1.1 x 8.0 x 4.5 cm. 2. Anterior left upper quadrant collection abutting the spleen and left hepatic lobe measures up to 6.4 x 2.0 cm, compared to 8.4 x 2.4 cm on 08/28/2022. 3. Redemonstrated postsurgical changes of the anterior abdominal wall including some fluid along the midline below the level of the umbilicus. Fistulous communication of the abdominal cavity is difficult to entirely excluded, though no significant intra-abdominal fluid component is seen just deep to this portion of the abdominal wall, which is near the distal portion of the drain. 4. Few mildly prominent small bowel segments in the left abdomen and lower pelvis; the possibility of a degree of partial obstruction is difficult to exclude. 5. Small right pleural effusion.
--- NOTE | 2022-11-02 19:31 | ED_ITS ---
HPI - Abdominal Pain General Chief Complaint: Abdominal Pain <Olga Styles CNP - Last Filed: 11/02/22 19:35> Stated Complaint: abd pain <Olga Styles CNP - Last Filed: 11/02/22 19:35> Time Seen by Provider: 11/02/22 21:53 <Olga Styles CNP - Last Filed: 11/02/22 19:35> Source: patient <Maciel Ledesma MD - Last Filed: 11/03/22 06:00> Mode of arrival: ambulatory <Maciel Ledesma MD - Last Filed: 11/03/22 06:00> Limitations: no limitations <Maciel Ledesma MD - Last Filed: 11/03/22 06:00> History of Present Illness HPI narrative: Patient 62 years old with history of Crohn's disease multiple abdominal surgeries status post subtotal colectomy with end ileostomy 08/01 comes in for epigastric pain with nausea and vomiting 1 time with increase ileostomy output. Patient feels weak no fever no chills labs done prior to my evaluation showed elevated lipase to 225. Patient has no history of pancreatitis in the past patient was seen here 10/26 for hypo magnesium <Maciel Ledesma MD - Last Filed: 11/03/22 06:00> Related Data Home Medications: Home Medications Medication Instructions Recorded Confirmed methocarbamol 750 mg tablet 750 mg PO TID 10/21/20 10/26/22 ondansetron 8 mg disintegrating 1 tab PO DAILY PRN Nausea 05/18/22 10/26/22 tablet rizatriptan 10 mg tablet 1 tab PO DAILY PRN Migraine 05/18/22 10/26/22 Headache fremanezumab-vfrm 225 mg/1.5 mL 225 mg subcut Q30D 08/05/22 10/26/22 subcutaneous syringe (Ajovy Syringe) hydroxyzine HCl 10 mg tablet 10 mg PO TID 10/05/22 10/26/22 Previous Rx's Medication Instructions Recorded famotidine 20 mg tablet 20 mg PO BID #60 tabs 10/30/22 magnesium oxide 400 mg (241.3 mg 800 mg PO BIDPC #120 tabs 10/30/22 magnesium) tablet hydromorphone 2 mg tablet 2 mg PO Q6H PRN pain (scale score 10/31/22 (Dilaudid) 1-3) #30 tabs <Olga Styles CNP - Last Filed: 11/02/22 19:35> Allergies/Adverse Reactions: Allergies Allergy/AdvReac Type Severity Reaction Status Date / Time omeprazole [OMEPRAZOLE] Allergy Severe N/V Verified 10/26/22 09:01 tramadol [From Ultram] Allergy Intermediate ITCHING Verified 10/26/22 09:01 ibuprofen [From Motrin] Allergy Unknown Verified 10/26/22 09:01 <Olga Styles CNP - Last Filed: 11/02/22 19:35> Review of Systems Review of Systems Yes all other systems are reviewed and are negative <Maciel Ledesma MD - Last Filed: 11/03/22 06:00> FOR[facility]LY [facility] Past Medical History Medical History: Medical History Arthritis Back pain Carpal tunnel syndrome COVID-19 vaccine series completed Crohn's disease Dizziness Environmental allergies Fever of unknown origin Fibromyalgia Gastroparesis GERD (gastroesophageal reflux disease) Herniated cervical disc Hx of migraines Intra-abdominal abscess Intra-abdominal abscess Iron deficiency anemia Leukocytosis Perforated viscus PONV (postoperative nausea and vomiting) Recurrent vomiting Shock Thoracic disc herniation Vitamin D deficiency <Olga Styles CNP - Last Filed: 11/02/22 19:35> Surgical History: Surgical History History of esophagogastroduodenoscopy (EGD) History of surgery History of tonsillectomy History of tubal ligation Hx of cholecystectomy Hx of colonoscopy Hx of fusion of cervical spine Hx of shoulder surgery Status post colostomy <Olga Styles CNP - Last Filed: 11/02/22 19:35> Social History Social History: Social History Household Members: Spouse and Other Household Members Other:: [place] Housing: House Are you a primary associate director career services to a significant other at home: No Do you presently have visiting nurse or other home services: Yes Unable to assess alcohol history related to: Unknown Alcohol intake: never Patient Tobacco Use Status: Former Tobacco user Quit Date: 1999 Tobacco use type: Cigarette e-Cigarette/Vaping Use: Never Used Advance Directives: Yes Advance Directives on File: Yes Advance Directives Date on File: 06/23/20 Nutrition Risks: No Nutritional Risk service: No Current occupational status: employed <Olga StylesSHERIF - Last Filed: 11/02/22 19:35> Physical Exam ED Vital Signs: Vital Signs - 24 hr 11/02/22 19:32 11/02/22 23:44 Temperature 97.3 F 98.0 F Pulse Rate 132 H 103 H Respiratory Rate 20 23 H Blood Pressure 139/87 151/78 H Pulse Oximetry 96 97 Oxygen Delivery Method Room Air Room Air BMI result Body Mass Index 22.8 <Olga StylesSHERIF - Last Filed: 11/02/22 19:35> Vital Signs - 24 hr 11/02/22 19:32 11/02/22 23:44 Temperature 97.3 F 98.0 F Pulse Rate 132 H 103 H Respiratory Rate 20 23 H Blood Pressure 139/87 151/78 H Pulse Oximetry 96 97 Oxygen Delivery Method Room Air Room Air BMI result Body Mass Index 22.8 <Maciel Ledesma MD - Last Filed: 11/03/22 06:00> Appearance: Alert. Oriented X3. No acute distress. Eyes: PERRLA, No Nystagmus ENT: Pharynx normal. Oral Mucosa moist Neck: Normal inspection. Neck supple. CVS: Normal heart rate and rhythm. Pulses normal. Respiratory: No respiratory distress. Equal air entry bilateral, no wheezing/rales/rhonchi Abdomen: Soft epigastric tenderness ileostomy bag in place with high-output watery stool mid abdomen nonhealing surgery wound dehiscence. Bowel sounds are present, no mass palpable, no CVA tenderness Skin: Skin warm and dry. Normal skin color. Normal skin turgor. Extremities: No lower extremity edema. No calf tenderness Neuro: Oriented X 3. No motor deficit. No sensory deficit.No cerebellar signs , cranial nerves II-XII intact <Maciel Ledesma MD - Last Filed: 11/03/22 06:00> Course Course Course Narrative: Patient is a 62-year-old female past medical history of Crohn's disease, recent 4 hospitalization for intestinal perforation and abscess than toxic megacolon due to C diff colitis requiring subtotal colectomy. She called Dr. Hagan from general surgery, he presented to triage, requesting the patient have CT of the abdomen and pelvis with contrast. Upper ABD pain since 1600, progressively worsening, with nausea and vomiting x1. Denies fevers/ chills. Reports significant ostomy output, has tried cutting back fluids but not i mproving. Plan: labs, CT ABD/ pelvis, urinalysis <Olga Styles CNP - Last Filed: 11/02/22 19:35> Medical Decision Making Medical Decision Making [facility] Narrative: Patient with weakness with high-output ileostomy will admit for IV hydration and electrolyte replacement as needed stool for C diff negative <Maciel Ledesma MD - Last Filed: 11/03/22 06:00> Lab Data Result Diagrams: 11/02/22 19:44 11/02/22 19:44 <Olga Styles CNP - Last Filed: 11/02/22 19:35> Labs: Lab Results 11/02/22 11/02/22 11/02/22 Range/Units 19:43 19:44 19:44 WBC 8.1 (4.8-10.8) X10*3/uL RBC 5.00 D (4.20-5.50) X10*6/uL Hgb 14.3 D (12.0-16.0) g/dl Hct 42.6 D (37.0-47.0) % MCV 85.2 (80.0-98.0) fL MCH 28.6 (27.0-33.0) pg MCHC 33.6 (31.0-35.0) g/dl RDW 13.2 (11.0-16.0) % Plt Count 296 D (160-400) X10*3/uL MPV 9.9 (9.4-12.3) fL Immature Gran % (Auto) 0.2 (0.0-0.4) % Neut % (Auto) 59.5 (45-73) % Lymph % (Auto) 32.0 (20-40) % [place] % (Auto) 6.8 (2-11) % Eos % (Auto) 1.0 (0-4) % Baso % (Auto) 0.5 (0-2) % Lymph # (Auto) 2.6 (1.2-4.9) X10*3/uL [place] # (Auto) 0.6 (0.1-1.2) X10*3/uL Eos # (Auto) 0.1 (0.0-0.4) X10*3/uL Baso # (Auto) 0.0 (0.0-0.2) X10*3/uL Abs Immat Gran (auto) 0.02 (0.00-0.03) X10*3/uL Absolute Neuts (auto) 4.8 (2.0-8.3) x10*3/uL Absolute Nucleated RBC 0.000 (0.0-0.012) X10*3/uL Nucleated RBC % (auto) 0.0 (0.0-0.2) /100WBC Sodium 144 (135-145) mmol/L Potassium 4.4 (3.3-5.1) mmol/L Chloride 104 (96-108) mmol/L Carbon Dioxide 29 (22-29) mmol/L Anion Gap 15 (12-20) BUN 20 H (9-16) mg/dL Creatinine 0.77 (0.5-1.4) mg/dL Estim Creat Clear Calc 63.4 Estimated GFR > 60 Random Glucose 155 H (60-115) mg/dL Lactic Acid 2.1 H* (0.5-2.0) mmol/L Lactic Acid F/U @ 2Hr (0.5-2.0) mmol/L Calcium 10.2 (8.4-10.2) mg/dL Magnesium 1.2 L* (1.6-2.6) mg/dL Total Bilirubin 0.3 (0.0-1.0) mg/dL AST 38 H (5-31) U/L ALT 69 H (0-31) U/L Alkaline Phosphatase 259 H (39-117) U/L Total Protein 7.5 (6.5-8.0) g/dL Albumin 4.0 (3.5-5.0) g/dL Lipase 225 H (8-78) U/L C. difficile Tox B Gene (Negative) 11/02/22 11/02/22 Range/Units 22:27 23:28 WBC (4.8-10.8) X10*3/uL RBC (4.20-5.50) X10*6/uL Hgb (12.0-16.0) g/dl Hct (37.0-47.0) % MCV (80.0-98.0) fL MCH (27.0-33.0) pg MCHC (31.0-35.0) g/dl RDW (11.0-16.0) % Plt Count (160-400) X10*3/uL MPV (9.4-12.3) fL Immature Gran % (Auto) (0.0-0.4) % Neut % (Auto) (45-73) % Lymph % (Auto) (20-40) % [place] % (Auto) (2-11) % Eos % (Auto) (0-4) % Baso % (Auto) (0-2) % Lymph # (Auto) (1.2-4.9) X10*3/uL [place] # (Auto) (0.1-1.2) X10*3/uL Eos # (Auto) (0.0-0.4) X10*3/uL Baso # (Auto) (0.0-0.2) X10*3/uL Abs Immat Gran (auto) (0.00-0.03) X10*3/uL Absolute Neuts (auto) (2.0-8.3) x10*3/uL Absolute Nucleated RBC (0.0-0.012) X10*3/uL Nucleated RBC % (auto) (0.0-0.2) /100WBC Sodium (135-145) mmol/L Potassium (3.3-5.1) mmol/L Chloride (96-108) mmol/L Carbon Dioxide (22-29) mmol/L Anion Gap (12-20) BUN (9-16) mg/dL Creatinine (0.5-1.4) mg/dL Estim Creat Clear Calc Estimated GFR Random Glucose (60-115) mg/dL Lactic Acid (0.5-2.0) mmol/L Lactic Acid F/U @ 2Hr 1.0 (0.5-2.0) mmol/L Calcium (8.4-10.2) mg/dL Magnesium (1.6-2.6) mg/dL Total Bilirubin (0.0-1.0) mg/dL AST (5-31) U/L ALT (0-31) U/L Alkaline Phosphatase (39-117) U/L Total Protein (6.5-8.0) g/dL Albumin (3.5-5.0) g/dL Lipase (8-78) U/L C. difficile Tox B Gene NEGATIVE (Negative) <Olga Styles, UTILITY ASSEMBLER - Last Filed: 11/02/22 19:35> Lab Results 11/02/22 11/02/22 11/02/22 Range/Units 19:43 19:44 19:44 WBC 8.1 (4.8-10.8) X10*3/uL RBC 5.00 D (4.20-5.50) X10*6/uL Hgb 14.3 D (12.0-16.0) g/dl Hct 42.6 D (37.0-47.0) % MCV 85.2 (80.0-98.0) fL MCH 28.6 (27.0-33.0) pg MCHC 33.6 (31.0-35.0) g/dl RDW 13.2 (11.0-16.0) % Plt Count 296 D (160-400) X10*3/uL MPV 9.9 (9.4-12.3) fL Immature Gran % (Auto) 0.2 (0.0-0.4) % Neut % (Auto) 59.5 (45-73) % Lymph % (Auto) 32.0 (20-40) % [place] % (Auto) 6.8 (2-11) % Eos % (Auto) 1.0 (0-4) % Baso % (Auto) 0.5 (0-2) % Lymph # (Auto) 2.6 (1.2-4.9) X10*3/uL [place] # (Auto) 0.6 (0.1-1.2) X10*3/uL Eos # (Auto) 0.1 (0.0-0.4) X10*3/uL Baso # (Auto) 0.0 (0.0-0.2) X10*3/uL Abs Immat Gran (auto) 0.02 (0.00-0.03) X10*3/uL Absolute Neuts (auto) 4.8 (2.0-8.3) x10*3/uL Absolute Nucleated RBC 0.000 (0.0-0.012) X10*3/uL Nucleated RBC % (auto) 0.0 (0.0-0.2) /100WBC Sodium 144 (135-145) mmol/L Potassium 4.4 (3.3-5.1) mmol/L Chloride 104 (96-108) mmol/L Carbon Dioxide 29 (22-29) mmol/L Anion Gap 15 (12-20) BUN 20 H (9-16) mg/dL Creatinine 0.77 (0.5-1.4) mg/dL Estim Creat Clear Calc 63.4 Estimated GFR > 60 Random Glucose 155 H (60-115) mg/dL Lactic Acid 2.1 H* (0.5-2.0) mmol/L Lactic Acid F/U @ 2Hr (0.5-2.0) mmol/L Calcium 10.2 (8.4-10.2) mg/dL Magnesium 1.2 L* (1.6-2.6) mg/dL Total Bilirubin 0.3 (0.0-1.0) mg/dL AST 38 H (5-31) U/L ALT 69 H (0-31) U/L Alkaline Phosphatase 259 H (39-117) U/L Total Protein 7.5 (6.5-8.0) g/dL Albumin 4.0 (3.5-5.0) g/dL Lipase 225 H (8-78) U/L C. difficile Tox B Gene (Negative) 11/02/22 11/02/22 Range/Units 22:27 23:28 WBC (4.8-10.8) X10*3/uL RBC (4.20-5.50) X10*6/uL Hgb (12.0-16.0) g/dl Hct (37.0-47.0) % MCV (80.0-98.0) fL MCH (27.0-33.0) pg MCHC (31.0-35.0) g/dl RDW (11.0-16.0) % Plt Count (160-400) X10*3/uL MPV (9.4-12.3) fL Immature Gran % (Auto) (0.0-0.4) % Neut % (Auto) (45-73) % Lymph % (Auto) (20-40) % [place] % (Auto) (2-11) % Eos % (Auto) (0-4) % Baso % (Auto) (0-2) % Lymph # (Auto) (1.2-4.9) X10*3/uL [place] # (Auto) (0.1-1.2) X10*3/uL Eos # (Auto) (0.0-0.4) X10*3/uL Baso # (Auto) (0.0-0.2) X10*3/uL Abs Immat Gran (auto) (0.00-0.03) X10*3/uL Absolute Neuts (auto) (2.0-8.3) x10*3/uL Absolute Nucleated RBC (0.0-0.012) X10*3/uL Nucleated RBC % (auto) (0.0-0.2) /100WBC Sodium (135-145) mmol/L Potassium (3.3-5.1) mmol/L Chloride (96-108) mmol/L Carbon Dioxide (22-29) mmol/L Anion Gap (12-20) BUN (9-16) mg/dL Creatinine (0.5-1.4) mg/dL Estim Creat Clear Calc Estimated GFR Random Glucose (60-115) mg/dL Lactic Acid (0.5-2.0) mmol/L Lactic Acid F/U @ 2Hr 1.0 (0.5-2.0) mmol/L Calcium (8.4-10.2) mg/dL Magnesium (1.6-2.6) mg/dL Total Bilirubin (0.0-1.0) mg/dL AST (5-31) U/L ALT (0-31) U/L Alkaline Phosphatase (39-117) U/L Total Protein (6.5-8.0) g/dL Albumin (3.5-5.0) g/dL Lipase (8-78) U/L C. difficile Tox B Gene NEGATIVE (Negative) <Maciel Ledesma MD - Last Filed: 11/03/22 06:00> Medications Administered Generic Name Dose Route Start Last Admin Trade Name Freq PRN Reason Stop Dose Admin Acetaminophen 650 mg 11/03/22 02:03 11/03/22 03:19 Acetaminophen 325 Mg Tablet PO 650 mg Q6H PRN Administration Pain, Mild (Pain Scale 1-3) Enoxaparin Sodium 40 mg 11/03/22 02:15 11/03/22 02:50 Enoxaparin Sodium 40 Mg/0.4 Ml Syringe SUBCUT 40 mg Q24H GAUDENCIO Administration Lactated Ringer's 1,000 mls @ 125 mls/hr 11/03/22 02:15 11/03/22 02:49 Lr IVCONT 125 mls/hr .Q8H GAUDENCIO Administration Oxycodone HCl 5 mg 11/03/22 02:03 11/03/22 03:19 Oxycodone Hcl Immed Release 5 Mg Tablet PO 5 mg Q6H PRN Administration Pain, Severe (Pain Scale 7-10) Discontinued Medications Generic Name Dose Route Start Last Admin Trade Name Freq PRN Reason Stop Dose Admin Sodium Chloride 1,000 mls @ 999 mls/hr 11/02/22 22:06 11/02/22 23:36 Ns IV 11/02/22 23:06 Infused .Q1H1M ONE Infusion Magnesium Sulfate 2 gm in 50 mls @ 100 mls/hr 11/02/22 22:25 11/02/22 23:45 Magnesium Sulfate/H2o IV 11/02/22 22:54 Infused ONCE ONE Infusion Magnesium Sulfate 2 gm in 50 mls @ 25 mls/hr 11/03/22 02:03 11/03/22 04:49 Magnesium Sulfate/H2o IV 11/03/22 04:02 Infused ONCE ONE Infusion Iohexol 100 ml 11/02/22 22:49 11/02/22 22:49 Iohexol 350 Mg/Ml 100 Ml Infus..Btl IV 11/02/22 22:50 85 ml ONCE ONE Administration <Olga Styles CNP - Last Filed: 11/02/22 19:35> Medications Administered Generic Name Dose Route Start Last Admin Trade Name Freq PRN Reason Stop Dose Admin Acetaminophen 650 mg 11/03/22 02:03 11/03/22 03:19 Acetaminophen 325 Mg Tablet PO 650 mg Q6H PRN Administration Pain, Mild (Pain Scale 1-3) Enoxaparin Sodium 40 mg 11/03/22 02:15 11/03/22 02:50 Enoxaparin Sodium 40 Mg/0.4 Ml Syringe SUBCUT 40 mg Q24H GAUDENCIO Administration Lactated Ringer's 1,000 mls @ 125 mls/hr 11/03/22 02:15 11/03/22 02:49 Lr IVCONT 125 mls/hr .Q8H GAUDENCIO Administration Oxycodone HCl 5 mg 11/03/22 02:03 11/03/22 03:19 Oxycodone Hcl Immed Release 5 Mg Tablet PO 5 mg Q6H PRN Administration Pain, Severe (Pain Scale 7-10) Discontinued Medications Generic Name Dose Route Start Last Admin Trade Name Freq PRN Reason Stop Dose Admin Sodium Chloride 1,000 mls @ 999 mls/hr 11/02/22 22:06 11/02/22 23:36 Ns IV 11/02/22 23:06 Infused .Q1H1M ONE Infusion Magnesium Sulfate 2 gm in 50 mls @ 100 mls/hr 11/02/22 22:25 11/02/22 23:45 Magnesium Sulfate/H2o IV 11/02/22 22:54 Infused ONCE ONE Infusion Magnesium Sulfate 2 gm in 50 mls @ 25 mls/hr 11/03/22 02:03 11/03/22 04:49 Magnesium Sulfate/H2o IV 11/03/22 04:02 Infused ONCE ONE Infusion Iohexol 100 ml 11/02/22 22:49 11/02/22 22:49 Iohexol 350 Mg/Ml 100 Ml Infus..Btl IV 11/02/22 22:50 85 ml ONCE ONE Administration <Maciel Ledesma MD - Last Filed: 11/03/22 06:00> Discharge Plan Discharge Clinical Impression: High output ileostomy, Hypomagnesemia <Olga Styles CNP - Last Filed: 11/02/22 19:35> Patient Disposition: Admitted As Inpatient <Olga Styles CNP - Last Filed: 11/02/22 19:35>
[2022-11-02 19:32] VITALS: BP 139/87; PULSE 132; RESP 20; TEMP 36.3; O2SAT 96; BMI 22.8
[2022-11-02 19:50] LABS: Basophils Percent Auto 0.5 % (0-2); Eosinophils Absolute Auto 0.1 X10*3/uL (0.0-0.4); Hematocrit 42.6 % (37.0-47.0); Hemoglobin 14.3 g/dl (12.0-16.0); Imm Gran Abs Auto 0.02 X10*3/uL (0.00-0.03); Imm Gran Pct Auto 0.2 % (0.0-0.4); Lymphocytes Absolute Auto 2.6 X10*3/uL (1.2-4.9); MANUAL DIFF FLAG NO; Mean Corpuscular HGB Conc 33.6 g/dl (31.0-35.0); Mean Corpuscular Hemoglobin 28.6 pg (27.0-33.0); Mean Corpuscular Volume 85.2 fL (80.0-98.0); Mean Platelet Volume 9.9 fL (9.4-12.3); Monocytes Absolute Auto 0.6 X10*3/uL (0.1-1.2); Monocytes Percent Auto 6.8 % (2-11); Neutrophils Absolute Auto 4.8 x10*3/uL (2.0-8.3); Neutrophils Percent Auto 59.5 % (45-73); Platelet Count 296 X10*3/uL (160-400); Red Cell Distribution Width 13.2 % (11.0-16.0); White Blood Count 8.1 X10*3/uL (4.8-10.8)
[2022-11-02 20:05] LABS: Lactic Acid 2.1 mmol/L (0.5-2.0)
[2022-11-02 20:09] LABS: Alanine Aminotransferase 69 U/L (0-31); Alkaline Phosphatase 259 U/L (39-117); Anion Gap 15 (12-20); Aspartate Amino Transferase 38 U/L (5-31); Bilirubin Total 0.3 mg/dL (0.0-1.0); Blood Urea Nitrogen 20 mg/dL (9-16); Calcium 10.2 mg/dL (8.4-10.2); Carbon Dioxide 29 mmol/L (22-29); Chloride 104 mmol/L (96-108); Creatinine Clr Calc Pharmacy 63.4; Estimated Glomerular Filt Rate > 60; Glucose Random 155 mg/dL (60-115); Lipase 225 U/L (8-78); Potassium 4.4 mmol/L (3.3-5.1); Sodium 144 mmol/L (135-145); Total Protein 7.5 g/dL (6.5-8.0)
[2022-11-02 21:48] LABS: Reflex Lactate? Lactic Acid Added
[2022-11-02 22:32] LABS: Magnesium 1.2 mg/dL (1.6-2.6)
[2022-11-02] MEDS: 0.9 % Sodium Chloride 1,000 ML 999 ML IV (22:35)
[2022-11-02] MEDS: iohexoL 350 MG/ML 100 ML INFUS..BTL IV (22:49)
[2022-11-02] MEDS: Magnesium Sulfate/H2O 2 GM/50 ML PIGGYBACK IV (23:15)
[2022-11-02 23:44] VITALS: BP 151/78; PULSE 103; RESP 23; TEMP 36.7; O2SAT 97
[2022-11-03 00:56] LABS: CDiff Gene PCR NEGATIVE (Negative)
--- NOTE | 2022-11-03 02:07 | P.HPHOSP_ITS ---
History of Present Illness Date of Service: 11/03/22 Chief Complaint: abd pain this is a well-known patient of our service who is a 62-year-old female with past medical history of Crohn's disease status post colostomy, complicated by a prolonged hospital stay, with an intra-abdominal abscess and perforated viscus, among others presents to the hospital today with complaints of abdominal pain, nausea vomiting, as well as high output from her ileostomy bag. Patient states her symptoms started the day of presentation, she has no fever, no chills, the pain is 6/10, constant, nonradiating, relieved with p.o. Dilaudid, worse with movement. Patient denies any chest pain, shortness of no urinary symptoms and no lower extremity edema. On arrival to the ED patient is hemodynamically stable with an elevated heart rate Labs are significant for WBC count of 6.9, hemoglobin of 12.1, hematocrit of 35.8, magnesium of 1.2, AST of 38, ALT of 69, lipase of 225, UA negative for acute infection, GI panel pending, C diff negative abdomen pelvic CT shows: significant interval decrease in size of the previously identified collection in the anterior mid to lower abdomen since 08/28/2022, left-sided drain remains in place, no fluid component surrounding the drain. small residual collection in the anterior abdomen slightly above the level of the drain measuring up to 8 x 4.5 x 1.1 cm, other drain around the spleen also seems to have decreased in size, she has other changes as noted in the abdominal CT impression case was discussed for surgery, patient will be admitted to medical team Review of Systems Review of Systems: Yes all other systems are reviewed and are negative [facility] Medical History Arthritis Back pain Carpal tunnel syndrome COVID-19 vaccine series completed Crohn's disease Dizziness Environmental allergies Fever of unknown origin Fibromyalgia Gastroparesis GERD (gastroesophageal reflux disease) Herniated cervical disc Hx of migraines Intra-abdominal abscess Intra-abdominal abscess Iron deficiency anemia Leukocytosis Perforated viscus PONV (postoperative nausea and vomiting) Recurrent vomiting Shock Thoracic disc herniation Vitamin D deficiency Surgical History History of esophagogastroduodenoscopy (EGD) History of surgery History of tonsillectomy History of tubal ligation Hx of cholecystectomy Hx of colonoscopy Hx of fusion of cervical spine Hx of shoulder surgery Status post colostomy Social History Household Members: Spouse and Other Household Members Other:: Stepson Housing: House Are you a primary acute care occupational therapist to a significant other at home: No Do you presently have visiting nurse or other home services: Yes Unable to assess alcohol history related to: Unknown Alcohol intake: never Patient Tobacco Use Status: Former Tobacco user Quit Date: 1999 Tobacco use type: Cigarette e-Cigarette/Vaping Use: Never Used Advance Directives: Yes Advance Directives on File: Yes Advance Directives Date on File: 06/23/20 Nutrition Risks: No Nutritional Risk service: No Current occupational status: employed Meds Allergies Allergy/AdvReac Type Severity Reaction Status Date / Time omeprazole [OMEPRAZOLE] Allergy Severe N/V Verified 10/26/22 09:01 tramadol [From Ultram] Allergy Intermediate ITCHING Verified 10/26/22 09:01 ibuprofen [From Motrin] Allergy Unknown Verified 10/26/22 09:01 Home Medications Medication Instructions Recorded Confirmed Last Taken Type methocarbamol 750 mg tablet 750 mg PO TID 10/21/20 10/26/22 10/26/22 History ondansetron 8 mg disintegrating 1 tab PO DAILY PRN Nausea 05/18/22 10/26/22 Unknown History tablet rizatriptan 10 mg tablet 1 tab PO DAILY PRN Migraine 05/18/22 10/26/22 Unknown History Headache fremanezumab-vfrm 225 mg/1.5 mL 225 mg subcut Q30D 08/05/22 10/26/22 2 Weeks Ago History subcutaneous syringe (Ajovy ~10/12/22 Syringe) hydroxyzine HCl 10 mg tablet 10 mg PO TID 10/05/22 10/26/22 Unknown History Physical Exam Vital Signs and Narrative: Vital Signs: Last Vital Signs Temp 98.0 F 11/02/22 23:44 Pulse 103 H 11/02/22 23:44 Resp 23 H 11/02/22 23:44 BP 151/78 H 11/02/22 23:44 Pulse Ox 97 11/02/22 23:44 O2 Del Method 11/02/22 23:44 BMI result Body Mass Index 22.8 Const: General: cooperative and no acute distress Orientation/consciousness: patient oriented x3 Eyes: General: appearance normal, both eyes and all related structures Pupils: Equal, round and reactive pupils present Resp: Effort & Inspection: normal respiratory effort Auscultation: clear to auscultation bilaterally Cardio: Rate: regular rate Rhythm: regular rhythm GI: Other: abdomen is diffusely tender, no rebound or guarding, she has significant amount of stool in the ileostomy bag Palpation (GI): Soft to palpation Auscultation : normal bowel sounds Skin: General skin exam: no rashes or lesions noted Neuro: General: patient oriented x3 Cranial nerves: Yes Equal, round and reactive pupils present Cognition (Neuro): normal cognition Extrem: General: Yes normal to inspection and Yes no pedal edema Results Labs 11/02/22 19:44 11/02/22 19:44 Labs: Laboratory Results - last 24 hr 11/02/22 11/02/22 11/02/22 19:43 19:44 19:44 MCV 85.2 MCH 28.6 MCHC 33.6 RDW 13.2 Plt Count 296 D MPV 9.9 Immature Gran % (Auto) 0.2 Neut % (Auto) 59.5 Lymph % (Auto) 32.0 [place] % (Auto) 6.8 Eos % (Auto) 1.0 Baso % (Auto) 0.5 Lymph # (Auto) 2.6 [place] # (Auto) 0.6 Eos # (Auto) 0.1 Baso # (Auto) 0.0 Abs Immat Gran (auto) 0.02 Absolute Neuts (auto) 4.8 Absolute Nucleated RBC 0.000 Nucleated RBC % (auto) 0.0 Anion Gap 15 Estim Creat Clear Calc 63.4 Estimated GFR > 60 Random Glucose 155 H Lactic Acid 2.1 H* Lactic Acid F/U @ 2Hr Calcium 10.2 Magnesium 1.2 L* Total Bilirubin 0.3 AST 38 H ALT 69 H Alkaline Phosphatase 259 H Total Protein 7.5 Albumin 4.0 Lipase 225 H C. difficile Tox B Gene 11/02/22 11/02/22 22:27 23:28 MCV MCH MCHC RDW Plt Count MPV Immature Gran % (Auto) Neut % (Auto) Lymph % (Auto) [place] % (Auto) Eos % (Auto) Baso % (Auto) Lymph # (Auto) [place] # (Auto) Eos # (Auto) Baso # (Auto) Abs Immat Gran (auto) Absolute Neuts (auto) Absolute Nucleated RBC Nucleated RBC % (auto) Anion Gap Estim Creat Clear Calc Estimated GFR Random Glucose Lactic Acid Lactic Acid F/U @ 2Hr 1.0 Calcium Magnesium Total Bilirubin AST ALT Alkaline Phosphatase Total Protein Albumin Lipase C. difficile Tox B Gene NEGATIVE Imaging Radiologist's Impressions: Impressions Abdomen/Pelvis CT 11/02/22 22:51 IMPRESSION: 1. Significant interval decrease in size of the previously identified collection in the anterior mid to lower abdomen since 08/28/2022. A left-sided drain remains in place, with no significant fluid component surrounding the drain. There is a small residual collection in the anterior abdomen slightly above the level of the drain measuring up to approximately 1.1 x 8.0 x 4.5 cm. 2. Anterior left upper quadrant collection abutting the spleen and left hepatic lobe measures up to 6.4 x 2.0 cm, compared to 8.4 x 2.4 cm on 08/28/2022. 3. Redemonstrated postsurgical changes of the anterior abdominal wall including some fluid along the midline below the level of the umbilicus. Fistulous communication of the abdominal cavity is difficult to entirely excluded, though no significant intra-abdominal fluid component is seen just deep to this portion of the abdominal wall, which is near the distal portion of the drain. 4. Few mildly prominent small bowel segments in the left abdomen and lower pelvis; the possibility of a degree of partial obstruction is difficult to exclude. 5. Small right pleural effusion. Assessment and Plan (1) High output ileostomy: Status: Acute (2) Hypomagnesemia: Status: Acute (3) Recurrent vomiting: Status: Acute (4) Nausea: Status: Acute (5) Gastroenteritis: Status: Acute (6) Intra-abdominal abscess: Status: Acute (7) S/P colectomy: Status: Acute Plan this is a 62-year-old female who is a status post colectomy due to complicated perforated viscus and history of Crohn's disease presents the hospital with abdominal pain, and high output in the ileostomy bag # high output ileostomy - possibly secondary to viral gastroenteritis - will treat with IV fluids - monitor electrolytes - replete electrolytes as needed - will consult GI, as well as General surgery # nausea vomiting, abdominal pain - likely secondary to acute gastroenteritis viral versus bacterial - C diff negative - GI panel pending # intra-abdominal abscess - seem to have improved in size from previous - general surgery consulted # status post colectomy - and ileostomy in place - ileostomy care, IV fluid - continue home pain medications # hypo Mag - repleted - follow magnesium level DVT prophylaxis: Lovenox given patient's need for evaluation by surgery as well as GI, and IV fluid in the setting of high output ileostomy patient will require minimum to nits inpatient hospital stay for further management and monitoring Time Spent With Patient Time: Total time managing care of this patient today ____ minutes. Quality Stroke Does the patient have a stroke diagnosis?: No VTE Prior VTE?: No VTE Risk Level:: Medical - moderate - high VTE Device Contraindication: Treatment Not Indicated VTE Drug Contraindication: N/A - Med Ordered
[2022-11-03] MEDS: Lactated Ringers 1,000 ML 125 ML IVCONT ×3 (02:49→16:56)
[2022-11-03] MEDS: Magnesium Sulfate/H2O 2 GM/50 ML PIGGYBACK IV (02:49)
[2022-11-03] MEDS: Enoxaparin Sodium 40 MG/0.4 ML SYRINGE SUBCUT (02:50)
[2022-11-03 02:56] VITALS: BP 105/70; PULSE 97; RESP 18; TEMP 36.7; O2SAT 96
[2022-11-03] MEDS: oxyCODONE HCl Immed Release 5 MG TABLET PO ×2 (03:19→21:09)
[2022-11-03] MEDS: Acetaminophen 325 MG TABLET 650 MG PO ×2 (03:19→16:55)
--- NOTE | 2022-11-03 03:38 | PC.NURSE ---
Pt BAR[place]OUR x3 medicated per MAR. Pt was a difficult stick. Dr. Mckeon able to get an Iv located 20 L AC using ultrasound guided technology.
[2022-11-03 05:05] LABS: Appearance Urine Clear; Color Urine Yellow; Glucose Urine UA Negative (Negative); Leukocyte Esterase Urine Negative (Negative); Nitrite Urine Negative (Negative); Specific Gravity - Urine >= 1.030 (1.005-1.025); Urine Blood Negative (Negative); Urine Ketones Negative (Negative); Urine Protein Trace mg/dL (Neg-Trace)
[2022-11-03 06:10] LABS: Basophils Percent Auto 0.6 % (0-2); Eosinophils Absolute Auto 0.1 X10*3/uL (0.0-0.4); Eosinophils Percent Auto 1.9 % (0-4); Hematocrit 35.8 % (37.0-47.0); Hemoglobin 12.1 g/dl (12.0-16.0); Imm Gran Abs Auto 0.02 X10*3/uL (0.00-0.03); Imm Gran Pct Auto 0.3 % (0.0-0.4); Lymphocytes Absolute Auto 2.7 X10*3/uL (1.2-4.9); Lymphocytes Percent Auto 39.7 % (20-40); MANUAL DIFF FLAG NO; Mean Corpuscular HGB Conc 33.8 g/dl (31.0-35.0); Mean Corpuscular Hemoglobin 29.2 pg (27.0-33.0); Mean Corpuscular Volume 86.5 fL (80.0-98.0); Mean Platelet Volume 10.2 fL (9.4-12.3); Monocytes Absolute Auto 0.5 X10*3/uL (0.1-1.2); Monocytes Percent Auto 7.2 % (2-11); Neutrophils Absolute Auto 3.5 x10*3/uL (2.0-8.3); Neutrophils Percent Auto 50.3 % (45-73); Platelet Count 237 X10*3/uL (160-400); Red Blood Count 4.14 X10*6/uL (4.20-5.50); Red Cell Distribution Width 13.4 % (11.0-16.0); White Blood Count 6.9 X10*3/uL (4.8-10.8)
--- NOTE | 2022-11-03 06:26 | PC.NURSE ---
Drained Kishore Prat drain to L lower abdomen; 50 cc purulent drainage color beige.
[2022-11-03 06:30] LABS: Anion Gap 15 (12-20); Blood Urea Nitrogen 15 mg/dL (9-16); Calcium 9.1 mg/dL (8.4-10.2); Carbon Dioxide 24 mmol/L (22-29); Chloride 106 mmol/L (96-108); Creatinine Clr Calc Pharmacy 76.3; Estimated Glomerular Filt Rate > 60; Glucose Random 130 mg/dL (60-115); Sodium 141 mmol/L (135-145)
--- NOTE | 2022-11-03 07:13 | PHA.MEDREC ---
Pharmacy Consult ? Medication Reconciliation Pharmacy has completed the medication reconciliation. Patient recently discharged on 10/30/22. [facility] discharge summary. Pantoprazole was dc'd last admission due to hypomagnesemia. Karen Andrews, PharmD
[2022-11-03 07:26] VITALS: BP 116/70; PULSE 97; RESP 18; O2SAT 99
[2022-11-03 07:53] LABS: COVID-19 Test Negative (Negative); IDNOW Serial# 9DB6401D
--- NOTE | 2022-11-03 09:03 | PM.GICN ---
History of Present Illness Data of Consult Service Date: 11/03/22 Requesting physician: Festus Dixon Primary Care Provider: Deandre Younger MD HPI Reason for consult: abdo pain and increased stoma o/p 62-year-old female with past? medical history of Crohn's disease and c diff toxic megacolon with perforated sigmoid colon s/p colectomy with stoma 07/2022, who I am asked to see for abdominal pain and increased stoma output. Patient noted increased liquid stool coming out of the stoma for 1 day and was emptying every half hour which is more than her norm. She also had sudden onset, constant, non radiating, epigastric pain 6/10 without any relieiving or exacerbating factors. She noted nausea but denies vomiting. Patient denies any chest pain, shortness of no urinary symptoms and no lower extremity edema.?She has no fever or chills. She denies sick contacts, no covid contact, c diff and stool PCR has been negative this admission. At time of seeing her the stoma output has reduced to her baseline and the stool is more to her normal consistency without blood or melena. She is hungry and wants to try food. complicated by a prolonged hospital stay, with an intra-abdominal abscess and perforated viscus, among others presents to the hospital today with complaints of abdominal pain, nausea vomiting, as well as high output from her ileostomy bag.? Patient states her symptoms started the day of presentation, she has no fever, no chills, the pain is 6/10, constant, nonradiating,? relieved with p.o. Dilaudid, worse with movement. ? Labs: WBC :6.9, hemoglobin 12.1, hematocrit of 35.8, magnesium of 1.2, AST of 38, ALT of 69, lipase of 225, UA negative for acute infection, Imaging: small fluid collections noted which are improved compared to before. Review of Systems Review of Systems: Constitutional : No Weight loss, No Fever, No Chills ENT/Mouth : No sore throat, No Rhinorrhea Eyes: No Swelling, No Redness Cardiovascular : No Chest Pain, No SOB, No Edema Respiratory : No Cough, No Sputum, No Wheezing Gastrointestinal : see HPI Genitourinary : NO Dysuria, No Urinary Frequency, No Hematuria, No Urgency Musculoskeletal : No joint pain, No Myalgias, No Joint Swelling Skin : No Skin Lesions, No rash Neuro : + Weakness, No Numbness, No Dizziness, No Headache Psych : No Anxiety/Panic, No Depression Heme/Lymph: No Bruising, No Lymphadenopathy Endocrine : No Polyuria, No Polydipsia All other systems reviewed and are negative. [facility] Past Medical History Medical History Arthritis Back pain Carpal tunnel syndrome COVID-19 vaccine series completed Crohn's disease Dizziness Environmental allergies Fever of unknown origin Fibromyalgia Gastroparesis GERD (gastroesophageal reflux disease) Herniated cervical disc Hx of migraines Intra-abdominal abscess Intra-abdominal abscess Iron deficiency anemia Leukocytosis Perforated viscus PONV (postoperative nausea and vomiting) Recurrent vomiting Shock Thoracic disc herniation Vitamin D deficiency Surgical History Surgical History History of esophagogastroduodenoscopy (EGD) History of surgery History of tonsillectomy History of tubal ligation Hx of cholecystectomy Hx of colonoscopy Hx of fusion of cervical spine Hx of shoulder surgery Status post colostomy Social History Social History Household Members: Spouse and Family Household Members Other:: Stepson Housing: House Are you a primary healthcare liaison to a significant other at home: No Do you presently have visiting nurse or other home services: Yes Unable to assess alcohol history related to: Unknown Alcohol intake: never Patient Tobacco Use Status: Former Tobacco user Quit Date: 23 years ago Tobacco use type: Cigarette e-Cigarette/Vaping Use: Never Used Advance Directives Date on File: 06/23/20 service: No Current occupational status: employed Meds Allergies Allergy/AdvReac Type Severity Reaction Status Date / Time omeprazole [OMEPRAZOLE] Allergy Severe N/V Verified 10/26/22 09:01 tramadol [From Ultram] Allergy Intermediate ITCHING Verified 10/26/22 09:01 ibuprofen [From Motrin] Allergy Unknown Verified 10/26/22 09:01 Active Medications: Current Medications Acetaminophen (Acetaminophen 325 Mg Tablet) 650 mg PO Q6H PRN PRN Reason: Pain, Mild (Pain Scale 1-3) Last Admin: 11/03/22 03:19 Dose: 650 mg Enoxaparin Sodium (Enoxaparin Sodium 40 Mg/0.4 Ml Syringe) 40 mg SUBCUT Q24H [facility] Last Admin: 11/03/22 02:50 Dose: 40 mg Lactated Ringer's (Lr) 1,000 mls @ 125 mls/hr IVCONT .Q8H [facility] Last Admin: 11/03/22 02:49 Dose: 125 mls/hr Ondansetron HCl (Ondansetron Hcl 4 Mg/2 Ml Vial) 4 mg IVPUSH Q8H PRN PRN Reason: Nausea and Vomiting Oxycodone HCl (Oxycodone Hcl Immed Release 5 Mg Tablet) 5 mg PO Q6H PRN PRN Reason: Pain, Severe (Pain Scale 7-10) Last Admin: 11/03/22 03:19 Dose: 5 mg Pharmacy Consult (Consult Rx Perform Med Rec) 1 each MISCELLANE ONCE PRN PRN Reason: Consult order Sodium Chloride (0.9 % Sodium Chloride Flush 3 Ml Syringe) 3 ml IVFLUSH QSHIFT [facility] Home Medications Medication Instructions Recorded Confirmed Last Taken Type methocarbamol 750 mg tablet 750 mg PO TID 10/21/20 11/03/22 10/26/22 History ondansetron 8 mg disintegrating 1 tab PO DAILY PRN Nausea 05/18/22 11/03/22 Unknown History tablet rizatriptan 10 mg tablet 1 tab PO DAILY PRN Migraine 05/18/22 11/03/22 Unknown History Headache fremanezumab-vfrm 225 mg/1.5 mL 225 mg subcut Q30D 08/05/22 11/03/22 2 Weeks Ago History subcutaneous syringe (Ajovy ~10/12/22 Syringe) hydroxyzine HCl 10 mg tablet 10 mg PO TID 10/05/22 11/03/22 Unknown History Physical Exam Vital Signs: Vital Signs: Last Vital Signs Temp 98.1 F 11/03/22 02:56 Pulse 97 11/03/22 07:26 Resp 18 11/03/22 07:26 BP 116/70 11/03/22 07:26 Pulse Ox 99 11/03/22 07:26 O2 Del Method 11/03/22 07:26 BMI result Body Mass Index 22.8 EXAM: GENERAL: The patient is thin VITAL SIGNS:see workflow HEENT: Nonicteric sclerae, PERRLA, EOMI. Oropharynx clear. Moist mucous membranes. Conjunctivae appear well perfused. No thyroid mass. CHEST: Chest wall is nontender. HEART: Regular rate and rhythm without murmurs. LUNGS: Clear to auscultation bilaterally. ABDOMEN: Soft, positive bowel sounds, nontender, no organomegaly.no flank tenderness--stoma output with normal appearing stool without blood or melena SKIN: No rash, no excessive bruising, petechiae, or purpura. NEUROLOGIC: Cranial nerves II-XII intact without motor/sensory deficit. psych--nml affect Const: General: cooperative and no acute distress Orientation/consciousness: patient oriented x3 Eyes: General: appearance normal, both eyes and all related structures Pupils: Equal, round and reactive pupils present Resp: Effort & Inspection: normal respiratory effort Auscultation: clear to auscultation bilaterally Cardio: Rate: regular rate Rhythm: regular rhythm GI: Other: abdomen is diffusely tender, no rebound or guarding, she has significant amount of stool in the ileostomy bag Palpation (GI): Soft to palpation Auscultation: normal bowel sounds Skin: General skin exam: no rashes or lesions noted Neuro: General: patient oriented x3 Cranial nerves: Yes Equal, round and reactive pupils present Cognition (Neuro): normal cognition Extrem: General: Yes normal to inspection and Yes no pedal edema Results Labs 11/03/22 06:00 11/03/22 06:00 Labs: Short CBC 11/02/22 11/03/22 Range/Units 19:44 06:00 WBC 8.1 6.9 (4.8-10.8) X10*3/uL Hgb 14.3 D 12.1 (12.0-16.0) g/dl Hct 42.6 D 35.8 L (37.0-47.0) % Plt Count 296 D 237 (160-400) X10*3/uL BMP 11/02/22 11/03/22 19:44 06:00 Sodium 144 141 Potassium 4.4 4.0 Chloride 104 106 Carbon Dioxide 29 24 BUN 20 H 15 Creatinine 0.77 0.64 Calcium 10.2 9.1 D Liver Function 11/02/22 Range/Units 19:44 Total Bilirubin 0.3 (0.0-1.0) mg/dL AST 38 H (5-31) U/L ALT 69 H (0-31) U/L Alkaline Phosphatase 259 H (39-117) U/L Albumin 4.0 (3.5-5.0) g/dL Urine 11/03/22 Range/Units 04:58 Urine Color Yellow Urine Appearance Clear Urine pH 5.0 (5.0-9.0) Ur Specific [place] >= 1.030 H (1.005-1.025) Urine Protein Trace (Neg-Trace) mg/dL Urine Glucose (UA) Negative (Negative) mg/dL Imaging CT scan - abdomen: Attestation: I personally reviewed and interpreted this imaging study as follows: My impression: small fluid collections noted, attenuated small bowel, drain noted, Assessment and Plan (1) High output ileostomy: Status: Acute Plan 1/sudden onset abdominal pain wih nausea, high stoma output and abn LFT with raised lipase, now back to her baseline. Stool testing neg for c diff and other organisms. she may have had gastroenteritis, possibly passed biliary sludge or stone. ddx: gastritis, PUD, flare of her gastroparesis PLAN: 1/ trend LFT --if going up then expand work up and get US GB as well as liver serologies 2/allow PO diet as tolerated 3/ SHe has been off PPI for a long time due to her hx of low Mag, can use carafate and hyoscine and see if helps her sx. carafate may also reduce the stoma output. discussed with hospitalist team Time Spent With Patient Time: Total time managing care of this patient today ____ minutes. Procedures Date of Service Date of Service: 11/03/22
--- NOTE | 2022-11-03 09:50 | P.CONGS_ITS ---
History of Present Illness Consult details Consult date: 11/03/22 Narrative: 62-year-old female who is well known to me for a complex surgical history. She had undergone emergency Callie's procedure for a perforation in the distal sigmoid last May,. She was in the hospital for a extended period of time because of intra-abdominal sepsis. She improved but had to undergo another MR gently laparotomy with total colectomy for toxic megacolon secondary to C diff colitis last July,. She was eventually discharged hospital last September,. She had [address]. She was admitted last week into the hospital because of hypomagnesemia with muscle weakness. She called me last night because of upper abdominal pain starting about 04:00 o'clock in the afternoon. She also noticed that her ileostomy output was much higher than usual and was very watery. She also had vomited 1 time although this is not unusual for her as she has a chronic history of gastroparesis, with frequent vomiting even at home.She denies any fever. I advised her to go to the emergency room last night. I had actually seen her last night in the ER and appeared to have a very benign exam although did have a high output ileostomy. Review of Systems Constitutional: Constitutional: Denies chills and Denies fever(s) Cardiovascular: Cardiovascular: Denies chest pain and Denies dyspnea Respiratory: Respiratory: Denies cough and Denies dyspnea Gastrointestinal: Gastrointestinal: Reports abdominal pain and Reports vomiting Neurologic: Denies behavioral changes Psychiatric: Psychiatric: Denies anxiety and Denies behavioral changes PMFSH Past Medical History Medical History Arthritis Back pain Carpal tunnel syndrome COVID-19 vaccine series completed Crohn's disease Dizziness Environmental allergies Fever of unknown origin Fibromyalgia Gastroparesis GERD (gastroesophageal reflux disease) Herniated cervical disc Hx of migraines Intra-abdominal abscess Intra-abdominal abscess Iron deficiency anemia Leukocytosis Perforated viscus PONV (postoperative nausea and vomiting) Recurrent vomiting Shock Thoracic disc herniation Vitamin D deficiency Surgical History Surgical History History of esophagogastroduodenoscopy (EGD) History of surgery History of tonsillectomy History of tubal ligation Hx of cholecystectomy Hx of colonoscopy Hx of fusion of cervical spine Hx of shoulder surgery Status post colostomy Social History Social History Household Members: Spouse and Family Household Members Other:: Ste[place] Housing: House Are you a primary resident care provider to a significant other at home: No Do you presently have visiting nurse or other home services: Yes Unable to assess alcohol history related to: Unknown Alcohol intake: never Patient Tobacco Use Status: Former Tobacco user Quit Date: 23 years ago Tobacco use type: Cigarette e-Cigarette/Vaping Use: Never Used Advance Directives Date on File: 06/23/20 service: No Current occupational status: employed Meds Allergies Allergy/AdvReac Type Severity Reaction Status Date / Time omeprazole [OMEPRAZOLE] Allergy Severe N/V Verified 10/26/22 09:01 tramadol [From Ultram] Allergy Intermediate ITCHING Verified 10/26/22 09:01 ibuprofen [From Motrin] Allergy Unknown Verified 10/26/22 09:01 Active Medications: Current Medications Acetaminophen (Acetaminophen 325 Mg Tablet) 650 mg PO Q6H PRN PRN Reason: Pain, Mild (Pain Scale 1-3) Last Admin: 11/03/22 03:19 Dose: 650 mg Enoxaparin Sodium (Enoxaparin Sodium 40 Mg/0.4 Ml Syringe) 40 mg SUBCUT Q24H [facility] Last Admin: 11/03/22 02:50 Dose: 40 mg Lactated Ringer's (Lr) 1,000 mls @ 125 mls/hr IVCONT .Q8H GAUDENCIO Last Admin: 11/03/22 02:49 Dose: 125 mls/hr Ondansetron HCl (Ondansetron Hcl 4 Mg/2 Ml Vial) 4 mg IVPUSH Q8H PRN PRN Reason: Nausea and Vomiting Oxycodone HCl (Oxycodone Hcl Immed Release 5 Mg Tablet) 5 mg PO Q6H PRN PRN Reason: Pain, Severe (Pain Scale 7-10) Last Admin: 11/03/22 03:19 Dose: 5 mg Pharmacy Consult (Consult Rx Perform Med Rec) 1 each MISCELLANE ONCE PRN PRN Reason: Consult order Sodium Chloride (0.9 % Sodium Chloride Flush 3 Ml Syringe) 3 ml IVFLUSH QSHIFT [facility] Last Admin: 11/03/22 09:45 Dose: Not Given Home Medications Medication Instructions Recorded Confirmed Last Taken Type methocarbamol 750 mg tablet 750 mg PO TID 10/21/20 11/03/22 10/26/22 History ondansetron 8 mg disintegrating 1 tab PO DAILY PRN Nausea 05/18/22 11/03/22 Unknown History tablet rizatriptan 10 mg tablet 1 tab PO DAILY PRN Migraine 05/18/22 11/03/22 Unknown History Headache fremanezumab-vfrm 225 mg/1.5 mL 225 mg subcut Q30D 08/05/22 11/03/22 2 Weeks Ago History subcutaneous syringe (Ajovy ~10/12/22 Syringe) hydroxyzine HCl 10 mg tablet 10 mg PO TID 10/05/22 11/03/22 Unknown History Physical Exam Vital Signs: Vital Signs: Last Vital Signs Temp 98.1 F 11/03/22 02:56 Pulse 97 11/03/22 07:26 Resp 18 11/03/22 07:26 BP 116/70 11/03/22 07:26 Pulse Ox 99 11/03/22 07:26 O2 Del Method 11/03/22 07:26 BMI result Body Mass Index 22.8 Const: General: comfortable and no acute distress Resp: Effort & Inspection: normal respiratory effort Cardio: Rhythm: regular rhythm GI: Other: Ileostomy with watery output, midline incision - one area with small opening, scanty drainage; drain on left has no output. Palpation (GI): Soft to palpation, not firm and no guarding Results Labs 11/03/22 06:00 11/03/22 06:00 Labs: Abnormal lab results 11/02/22 11/02/22 11/03/22 Range/Units 19:43 19:44 04:58 RBC (4.20-5.50) X10*6/uL Hct (37.0-47.0) % BUN 20 H (9-16) mg/dL Random Glucose 155 H (60-115) mg/dL Lactic Acid 2.1 H* (0.5-2.0) mmol/L Magnesium 1.2 L* (1.6-2.6) mg/dL AST 38 H (5-31) U/L ALT 69 H (0-31) U/L Alkaline Phosphatase 259 H (39-117) U/L Lipase 225 H (8-78) U/L Ur Specific Mound >= 1.030 H (1.005-1.025) 11/03/22 11/03/22 Range/Units 06:00 06:00 RBC 4.14 L (4.20-5.50) X10*6/uL Hct 35.8 L (37.0-47.0) % BUN (9-16) mg/dL Random Glucose 130 H (60-115) mg/dL Lactic Acid (0.5-2.0) mmol/L Magnesium (1.6-2.6) mg/dL AST (5-31) U/L ALT (0-31) U/L Alkaline Phosphatase (39-117) U/L Lipase (8-78) U/L Ur Specific Mound (1.005-1.025) Short CBC 11/02/22 11/03/22 Range/Units 19:44 06:00 WBC 8.1 6.9 (4.8-10.8) X10*3/uL Hgb 14.3 D 12.1 (12.0-16.0) g/dl Hct 42.6 D 35.8 L (37.0-47.0) % Plt Count 296 D 237 (160-400) X10*3/uL BMP 11/02/22 11/03/22 19:44 06:00 Sodium 144 141 Potassium 4.4 4.0 Chloride 104 106 Carbon Dioxide 29 24 BUN 20 H 15 Creatinine 0.77 0.64 Calcium 10.2 9.1 D Liver Function 11/02/22 Range/Units 19:44 Total Bilirubin 0.3 (0.0-1.0) mg/dL AST 38 H (5-31) U/L ALT 69 H (0-31) U/L Alkaline Phosphatase 259 H (39-117) U/L Albumin 4.0 (3.5-5.0) g/dL Urine 11/03/22 Range/Units 04:58 Urine Color Yellow Urine Appearance Clear Urine pH 5.0 (5.0-9.0) Ur Specific Mound >= 1.030 H (1.005-1.025) Urine Protein Trace (Neg-Trace) mg/dL Urine Glucose (UA) Negative (Negative) mg/dL All other labs normal. Laboratory Results WBC 6.9 X10*3/uL (4.8-10.8) 11/03/22 06:00 RBC 4.14 X10*6/uL (4.20-5.50) L 11/03/22 06:00 Hgb 12.1 g/dl (12.0-16.0) 11/03/22 06:00 Hct 35.8 % (37.0-47.0) L 11/03/22 06:00 MCV 86.5 fL (80.0-98.0) 11/03/22 06:00 MCH 29.2 pg (27.0-33.0) 11/03/22 06:00 MCHC 33.8 g/dl (31.0-35.0) 11/03/22 06:00 RDW 13.4 % (11.0-16.0) 11/03/22 06:00 Plt Count 237 X10*3/uL (160-400) 11/03/22 06:00 MPV 10.2 fL (9.4-12.3) 11/03/22 06:00 Immature Gran % (Auto) 0.3 % (0.0-0.4) 11/03/22 06:00 Neut % (Auto) 50.3 % (45-73) 11/03/22 06:00 Lymph % (Auto) 39.7 % (20-40) 11/03/22 06:00 Dickenson % (Auto) 7.2 % (2-11) 11/03/22 06:00 Eos % (Auto) 1.9 % (0-4) 11/03/22 06:00 Baso % (Auto) 0.6 % (0-2) 11/03/22 06:00 Lymph # (Auto) 2.7 X10*3/uL (1.2-4.9) 11/03/22 06:00 Dickenson # (Auto) 0.5 X10*3/uL (0.1-1.2) 11/03/22 06:00 Eos # (Auto) 0.1 X10*3/uL (0.0-0.4) 11/03/22 06:00 Baso # (Auto) 0.0 X10*3/uL (0.0-0.2) 11/03/22 06:00 Abs Immat Gran (auto) 0.02 X10*3/uL (0.00-0.03) 11/03/22 06:00 Absolute Neuts (auto) 3.5 x10*3/uL (2.0-8.3) 11/03/22 06:00 Absolute Nucleated RBC 0.000 X10*3/uL (0.0-0.012) 11/03/22 06:00 Nucleated RBC % (auto) 0.0 /100WBC (0.0-0.2) 11/03/22 06:00 Sodium 141 mmol/L (135-145) 11/03/22 06:00 Potassium 4.0 mmol/L (3.3-5.1) 11/03/22 06:00 Chloride 106 mmol/L (96-108) 11/03/22 06:00 Carbon Dioxide 24 mmol/L (22-29) 11/03/22 06:00 Anion Gap 15 (12-20) 11/03/22 06:00 BUN 15 mg/dL (9-16) 11/03/22 06:00 Creatinine 0.64 mg/dL (0.5-1.4) 11/03/22 06:00 Estim Creat Clear Calc 76.3 11/03/22 06:00 Estimated GFR > 60 11/03/22 06:00 Random Glucose 130 mg/dL (60-115) H 11/03/22 06:00 Lactic Acid 2.1 mmol/L (0.5-2.0) H* 11/02/22 19:43 Lactic Acid F/U @ 2Hr 1.0 mmol/L (0.5-2.0) 11/02/22 22:27 Calcium 9.1 mg/dL (8.4-10.2) D 11/03/22 06:00 Magnesium 1.2 mg/dL (1.6-2.6) L* 11/02/22 19:44 Total Bilirubin 0.3 mg/dL (0.0-1.0) 11/02/22 19:44 AST 38 U/L (5-31) H 11/02/22 19:44 ALT 69 U/L (0-31) H 11/02/22 19:44 Alkaline Phosphatase 259 U/L (39-117) H 11/02/22 19:44 Total Protein 7.5 g/dL (6.5-8.0) 11/02/22 19:44 Albumin 4.0 g/dL (3.5-5.0) 11/02/22 19:44 Lipase 225 U/L (8-78) H 11/02/22 19:44 Urine Color Yellow 11/03/22 04:58 Urine Appearance Clear 11/03/22 04:58 Urine pH 5.0 (5.0-9.0) 11/03/22 04:58 Ur Specific Mound >= 1.030 (1.005-1.025) H 11/03/22 04:58 Urine Protein Trace mg/dL (Neg-Trace) 11/03/22 04:58 Urine Glucose (UA) Negative mg/dL (Negative) 11/03/22 04:58 Urine Ketones Negative mg/dL (Negative) 11/03/22 04:58 Urine Blood Negative (Negative) 11/03/22 04:58 Urine Nitrite Negative (Negative) 11/03/22 04:58 Ur Leukocyte Esterase Negative (Negative) 11/03/22 04:58 C. difficile Tox B Gene NEGATIVE (Negative) 11/02/22 23:28 COVID-19 (TYLER) Negative (Negative) 11/03/22 07:36 COVID-19 Clin Com See Note 11/03/22 07:36 Impressions Abdomen/Pelvis CT 11/02/22 22:51 IMPRESSION: 1. Significant interval decrease in size of the previously identified collection in the anterior mid to lower abdomen since 08/28/2022. A left-sided drain remains in place, with no significant fluid component surrounding the drain. There is a small residual collection in the anterior abdomen slightly above the level of the drain measuring up to approximately 1.1 x 8.0 x 4.5 cm. 2. Anterior left upper quadrant collection abutting the spleen and left hepatic lobe measures up to 6.4 x 2.0 cm, compared to 8.4 x 2.4 cm on 08/28/2022. 3. Redemonstrated postsurgical changes of the anterior abdominal wall including some fluid along the midline below the level of the umbilicus. Fistulous communication of the abdominal cavity is difficult to entirely excluded, though no significant intra-abdominal fluid component is seen just deep to this portion of the abdominal wall, which is near the distal portion of the drain. 4. Few mildly prominent small bowel segments in the left abdomen and lower pelvis; the possibility of a degree of partial obstruction is difficult to exclude. 5. Small right pleural effusion. Assessment and Plan (1) High output ileostomy: Status: Resolved She is known to me for her complex surgical history. She went to the ER last night because of upper abdominal pain along with output ileostomy. She otherwise had a benign exam. I have reviewed her CAT scan and her old intra- abdominal collections on the left upper quadrant, anterior abdomen and lower abdomen have all decreased in size. I will probably remove the remaining NOHEMI drain before she is discharged. It is unlikely that these collections are causing her problem of high output stoma and crampy upper abdominal pain. I will review this with the radiologist to see if she will benefit from additional placement of drains. However, if she is ready to be discharged this weekend, I can see her in the office for this. She otherwise has a benign exam and says she feels better this morning. Her ileostomy has slowed down since last night. She can have her diet advanced as tolerated. Time Spent With Patient Time: Total time managing care of this patient today ____ minutes. Procedures Date of Service Date of Service: 11/03/22
[2022-11-03 10:21] LABS: Campylobacter Not Detected (Not Detect.); E. coli EAEC Not Detected (Not Detect.); E. coli EPEC Not Detected (Not Detect.); E. coli ETEC Not Detected (Not Detect.); E. coli STEC Not Detected (Not Detect.); Plesiomonas shigelloides Not Detected (Not Detect.); Salmonella Not Detected (Not Detect.); Shigella sp./EIEC Not Detected (Not Detect.); Vibrio Not Detected (Not Detect.); Vibrio Cholerae Not Detected (Not Detect.); Yersinia enterocolitica Not Detected (Not Detect.)
[2022-11-03 10:22] LABS: Adenovirus F 40/41 Not Detected (Not Detect.); Astrovirus Not Detected (Not Detect.); Cryptosporidium Not Detected (Not Detect.); Cyclospora cayetanensis Not Detected (Not Detect.); Entamoeba histolytica Not Detected (Not Detect.); Giardia lamblia Not Detected (Not Detect.); Norovirus GI/GII Not Detected (Not Detect.); Rotavirus A Not Detected (Not Detect.); Sapovirus Not Detected (Not Detect.)
--- NOTE | 2022-11-03 11:14 | PM.EVENT ---
Event Note Date of Service: 11/03/22 Event Note: Patient is here with dehydration due to high high output ostomy fluid loss, and possible viral gastroenteritis, leading to dehydration, tachycardia and elevated lactic adcid. Pt was not or is septic and therefore doesn't need Abx. continue hydration, conservative mangement and replace electrolytes. Time Spent With Patient Time: Total time managing care of this patient today ____ minutes.
[2022-11-03] MEDS: Famotidine 20 MG TABLET PO ×2 (11:28→21:01)
[2022-11-03] MEDS: HYDROmorphone HCl 2 MG TABLET PO ×2 (11:28→18:08)
[2022-11-03] MEDS: ondansetron HCL 4 MG/2 ML VIAL IVPUSH (11:28)
[2022-11-03 13:01] VITALS: BP 123/65; PULSE 92; RESP 18; O2SAT 94
[2022-11-03 13:39] VITALS: BP 136/66; PULSE 98; RESP 19; TEMP 36.4; O2SAT 99
[2022-11-03] MEDS: hydrOXYzine HCL 10 MG TABLET PO ×2 (14:07→21:01)
--- NOTE | 2022-11-03 14:57 | P.EN_ITS ---
Event Note Date of Service: 11/03/22 Event Note: Seen on afternoon rounds Says she feels better Level of pain more ?normal? Ileostomy output has slowed down Abdomen remained soft I removed the last drain I Have changed her dressings midline Diet as tolerated I will see her in the office for follow-up with regards to her residual intra- abdominal collections Time Spent With Patient Time: Total time managing care of this patient today ____ minutes.
[2022-11-03 15:02] LABS: Magnesium 1.8 mg/dL (1.6-2.6)
[2022-11-03 15:30] VITALS: BP 130/67; PULSE 97; RESP 18; TEMP 37.1; O2SAT 98
[2022-11-03 16:10] VITALS: BMI 22.8
--- NOTE | 2022-11-03 16:21 | MHC.CLN ---
NUTRITION REGULAR DIET. PER PRIOR ADMISSIONS, ACCEPTS ENSURE SUPPLEMENT. ADDING BID TO PROVIDE ADDITIONAL 700 KCALS, 40 G PROTEIN. WEIGHT ESSENTIALLY STABLE X 30 DAYS. SIGNIFICANT WEIGHT LOSS X 6 MONTHS AND 11 MONTHS. RECENT PROLONGED HOSPITAL STAYS. CURRENTLY WITH HIGH OUTPUT ILEOSTOMY, DEHYDRATION, GASTROENTERITIS. FOLLOW FOR DIET TOLERANCE AND PO INTAKE.
[2022-11-03] MEDS: 0.9 % Sodium Chloride Flush 3 ML SYRINGE IVFLUSH ×2 (16:50→21:01)
[2022-11-03] MEDS: Magnesium Oxide 400 MG TABLET 800 MG PO (16:50)
[2022-11-03 19:34] VITALS: BP 159/77; PULSE 91; RESP 18; TEMP 36.6; O2SAT 97
[2022-11-03] MEDS: Cyclobenzaprine HCl 10 MG TABLET PO (21:00)
[2022-11-03] MEDS: Ondansetron ODT 8 MG TAB.RAPDIS TRANSLINGU (21:10)
[2022-11-04] MEDS: Lactated Ringers 1,000 ML 125 ML IVCONT ×2 (00:15→08:15)
[2022-11-04] MEDS: HYDROmorphone HCl 2 MG TABLET PO (00:23)
[2022-11-04] MEDS: Enoxaparin Sodium 40 MG/0.4 ML SYRINGE SUBCUT (02:49)
[2022-11-04] MEDS: Acetaminophen 325 MG TABLET 650 MG PO (02:49)
[2022-11-04 03:56] VITALS: BP 123/58; PULSE 90; RESP 15; TEMP 36.6; O2SAT 94
[2022-11-04] MEDS: Cyclobenzaprine HCl 10 MG TABLET PO (08:13)
[2022-11-04] MEDS: Magnesium Oxide 400 MG TABLET 800 MG PO (08:13)
[2022-11-04] MEDS: Famotidine 20 MG TABLET PO (08:14)
[2022-11-04] MEDS: hydrOXYzine HCL 10 MG TABLET PO (08:14)
[2022-11-04 08:39] VITALS: BP 134/84; PULSE 97; RESP 18; TEMP 36.3; O2SAT 98
--- NOTE | 2022-11-04 12:14 | PM.DS ---
DS: Providers Provider Date of Service: 11/04/22 Date of admission: 11/03/22 02:05 Primary care physician: Deandre Younger MD Consults: 11/03/22 02:03 Consult to Gastroenterology Routine Consulting Provider: Cynthia Seaman Reason for consultation: High output ileostomy management Has provider been notified: No Consult to General Surgery Routine Consulting Provider: Deandre Hagan Reason for consultation: ileostomy manaement, high output Has provider been notified: Yes DS: Diagnosis Discharge Diagnosis (1) High output ileostomy: Status: Acute DS: Summary Hospital Course Hospital Course: Chief Complaint: abd pain ?this is a well-known patient of our service who is a 62-year-old female with past? medical history of Crohn's disease status post colostomy, complicated by a prolonged hospital stay, with an intra-abdominal abscess and perforated viscus, among others presents to the hospital today with complaints of abdominal pain, nausea vomiting, as well as high output from her ileostomy bag.? Patient states her symptoms started the day of presentation, she has no fever, no chills, the pain is 6/10, constant, nonradiating,? relieved with p.o. Dilaudid, worse with movement. ? Patient denies any chest pain, shortness of no urinary symptoms and no lower extremity edema.? On arrival to the ED patient is hemodynamically stable with? an elevated heart rate Labs are significant for WBC count of 6.9, hemoglobin of 12.1, hematocrit of 35.8, magnesium of 1.2, AST of 38, ALT of 69, lipase of 225, UA negative for acute infection, GI panel pending, C diff negative ?abdomen pelvic CT shows:? significant interval decrease in size of the previously identified collection in the anterior mid to lower abdomen since 08/28/2022, left-sided drain remains in place, no fluid component surrounding the drain. ? small residual collection in the anterior abdomen slightly above the level of the drain measuring up to 8 x 4.5 x 1.1 cm, other drain around the spleen also seems to have decreased in size, she has other changes as noted in the abdominal CT impression ?case was discussed for surgery, patient will be admitted to medical team Hospital course: Patient presented with abd pain, nausea, vomitting and high ouptut of ostomy leading to dehydration, magnesium loss, increase in lipase bu no halmarks of pancreatitis, CT of abdomen showed chronic changes and no acute finding. Patient was admitted for likacute viral gastroenteritis and hydrated and treated symptomatically and made rapid recovery, tolerating diet and will be discharged home. Hypomagesemia corrected, acute lactic acidosis was do dehydration. Overall feels better and would like to go home. Time Spent with Patient Time attestation: Total time managing care of this patient today ____ minutes. Discharge coordination time: Greater than 30 minutes Quality: Safe Use of Opioids Does Pt have an Active Cancer Diagnosis on the Problem List?: No Quality: Stroke Does the patient have a stroke diagnosis?: No Physical Exam Vital Signs: Vital Signs: Last Vital Signs Temp 97.4 F 11/04/22 08:39 Pulse 97 11/04/22 08:39 Resp 18 11/04/22 08:39 BP 134/84 11/04/22 08:39 Pulse Ox 98 11/04/22 08:39 O2 Del Method 11/04/22 08:39 BMI result Body Mass Index 22.8 DS: Data Data Completed and Pending Labs on day of discharge: Laboratory Results - last 24 hr 11/03/22 14:29 Magnesium 1.8 Preliminary micro results at discharge 11/02/22 21:39 Blood Culture - Preliminary Blood - Venous No growth after 24 hours. 11/02/22 21:39 Blood Culture - Preliminary Blood - Venous No growth after 24 hours. Discharge Plan Discharge Anticipated Discharge Date/Time: 11/04/22 12:10 Patient Disposition: Home, Self-Care Discharge Diagnosis: Gastroenteritis, dehydration, hypomagneseemia Referrals: Deandre Younger MD [Primary Care Provider] - 1 Week Discharge Medications: Continued hydromorphone [Dilaudid] 2 mg tablet 2 mg PO Q6H PRN (Reason: pain (scale score 1-3)) Qty: 30 0RF Rx Instructions: Partial Fill upon patient request. Ajovy Syringe 225 mg/1.5 mL syringe 225 mg subcut Q30D Rx Instructions: Monthly on the famotidine 20 mg Tablet 20 mg PO BID Qty: 60 0RF magnesium oxide 400 mg (241.3 mg magnesium) Tablet 800 mg PO BIDPC Qty: 120 0RF rizatriptan 10 mg tablet 1 tab PO DAILY PRN (Reason: Migraine Headache) ondansetron 8 mg tablet,disintegrating 1 tab PO DAILY PRN (Reason: Nausea) methocarbamol 750 mg tablet 750 mg PO TID hydroxyzine HCl 10 mg tablet 10 mg PO TID Discharge Orders: Discharge Order (Routine); Ordered 11/04/22 Ordered By: Miguel Ángel Power Diet: Advance to usual diet Activity on Discharge: As tolerated Stand Alone Forms: Patient Portal Discharge page Care Plan Goals: full recovery from viral gastroenteritis Health Concerns: viral gastroenteritis Plan of Treatment: Stay well hydrated and follow up with your doctors as previously scheduled Assessment: as above
[2022-11-04] MEDS: oxyCODONE HCl Immed Release 5 MG TABLET PO (12:15)
--- NOTE | 2022-11-04 14:30 | MHC.CM.PN ---
PT DISCHARGED HOME WITH NO SERVICES PRIOR TO BEING SEEN BY CM
== END 2022-11-04 13:18 | disposition home or self-care (01) | DRG 249 ==
LOC: HO.ED 21:53 → HO.EDOVER 11-03 02:13 → HO.S3 11-03 12:16
PROVIDERS: Nurse Practitioner Family; Admitting Provider Internal Medicine; Emergency Provider Internal Medicine; PCP Internal Medicine; Visit Provider Internal Medicine
DX: A08.4 Viral intestinal infection, unspecified (principal); E87.21 Acute metabolic acidosis; E83.42 Hypomagnesemia; K50.914 Crohn's disease, unspecified, with abscess; Z93.2 Ileostomy status; E86.0 Dehydration; Z20.822 Contact with and (suspected) exposure to COVID-19; Z88.5 Allergy status to narcotic agent; Z87.891 Personal history of nicotine dependence; Z88.6 Allergy status to analgesic agent; Z88.8 Allergy status to other drugs, medicaments and biological substances; Z79.899 Other long term (current) drug therapy
CPT/HCPCS: 36415; 74177; 80048; 80053; 81003; 83605; 83690; 83735; 85025; 87040; 87493; 87507; 87635; 99285; J1650; J2405; J3475; Q9967

== ENCOUNTER 2022-11-10 11:39 | Outpatient (REF) | payer OTHER, SELFPAY ==
[2022-11-10 13:59] LABS: MANUAL DIFF FLAG NO
[2022-11-10 14:47] LABS: Basophils Absolute Auto 0.1 X10*3/uL (0.0-0.2); Basophils Percent Auto 0.5 % (0-2); Eosinophils Absolute Auto 0.1 X10*3/uL (0.0-0.4); Eosinophils Percent Auto 0.5 % (0-4); Hematocrit 43.1 % (37.0-47.0); Hemoglobin 14.2 g/dl (12.0-16.0); Imm Gran Abs Auto 0.03 X10*3/uL (0.00-0.03); Imm Gran Pct Auto 0.3 % (0.0-0.4); Lymphocytes Absolute Auto 2.6 X10*3/uL (1.2-4.9); Lymphocytes Percent Auto 25.9 % (20-40); Mean Corpuscular HGB Conc 32.9 g/dl (31.0-35.0); Mean Platelet Volume 10.9 fL (9.4-12.3); Monocytes Absolute Auto 0.6 X10*3/uL (0.1-1.2); Monocytes Percent Auto 5.8 % (2-11); Neutrophils Absolute Auto 6.8 x10*3/uL (2.0-8.3); Platelet Count 314 X10*3/uL (160-400); Red Cell Distribution Width 13.7 % (11.0-16.0); White Blood Count 10.1 X10*3/uL (4.8-10.8)
[2022-11-10 15:06] LABS: Alanine Aminotransferase 68 U/L (0-31); Albumin Level 4.5 g/dL (3.5-5.0); Alkaline Phosphatase 309 U/L (39-117); Amylase 61 U/L (28-100); Anion Gap 19 (12-20); Aspartate Amino Transferase 49 U/L (5-31); Bilirubin Total 0.5 mg/dL (0.0-1.0); Blood Urea Nitrogen 28 mg/dL (9-16); C Reactive Protein 1.26 mg/dL (< or = 0.50); Calcium 10.5 mg/dL (8.4-10.2); Carbon Dioxide 24 mmol/L (22-29); Chloride 103 mmol/L (96-108); Estimated Glomerular Filt Rate > 60; Glucose Random 114 mg/dL (60-115); Lipase 26 U/L (8-78); Magnesium 1.6 mg/dL (1.6-2.6); Potassium 5.2 mmol/L (3.3-5.1); Sodium 141 mmol/L (135-145); Total Protein 8.1 g/dL (6.5-8.0)
[2022-11-10 15:39] LABS: Folate 17.7 ng/mL (> or = 4.0); Free T4 (Free Thyroxine) 0.72 ng/dL (0.71-1.85); Vitamin B12 467 pg/mL (200-900)
== END 2022-11-10 11:40 | disposition home or self-care (01) ==
LOC: HO.10HDL 11:39
PROVIDERS: Visit Provider Internal Medicine
DX: R10.9 Unspecified abdominal pain (principal); R73.03 Prediabetes; E61.2 Magnesium deficiency; R00.0 Tachycardia, unspecified
CPT/HCPCS: 36415; 80053; 82150; 82550; 82607; 82746; 83690; 83735; 84439; 85025; 86140

== ENCOUNTER → 2022-11-13 08:35 | Outpatient (BNVA) | payer OTHER, SELFPAY | PROVIDERS: PCP Internal Medicine; Visit Provider Surgery | DX: Z13.89 Encounter for screening for other disorder (principal) ==

== ENCOUNTER 2022-11-16 10:03 | Outpatient (REF) | payer OTHER, SELFPAY ==
[2022-11-16 15:20] LABS: Influenza A PCR NEGATIVE (Negative); Influenza B PCR NEGATIVE (Negative); Resp Syncy Virus RNA Qual PCR NEGATIVE (Negative); SARS COV2 PCR INHOUSE NEGATIVE (Negative)
== END 2022-11-16 10:04 | disposition home or self-care (01) ==
LOC: HO.LNP 10:03
PROVIDERS: Visit Provider Internal Medicine
DX: Z20.822 Contact with and (suspected) exposure to COVID-19 (principal); R05.9 Cough, unspecified; R50.9 Fever, unspecified
CPT/HCPCS: 0241U

== ENCOUNTER 2022-11-29 09:37 | Outpatient (REF) | payer OTHER, SELFPAY ==
[2022-11-29 13:11] LABS: Alanine Aminotransferase 65 U/L (0-31); Albumin Level 4.2 g/dL (3.5-5.0); Alkaline Phosphatase 279 U/L (39-117); Anion Gap 14 (12-20); Aspartate Amino Transferase 33 U/L (5-31); Bilirubin Total 0.5 mg/dL (0.0-1.0); Blood Urea Nitrogen 19 mg/dL (9-16); Calcium 10.2 mg/dL (8.4-10.2); Carbon Dioxide 29 mmol/L (22-29); Chloride 102 mmol/L (96-108); Estimated Glomerular Filt Rate > 60; Glucose Random 112 mg/dL (60-115); Potassium 4.4 mmol/L (3.3-5.1); Sodium 141 mmol/L (135-145); Total Protein 7.6 g/dL (6.5-8.0)
== END 2022-11-29 09:38 | disposition home or self-care (01) ==
LOC: HO.WFDLDS 09:37
PROVIDERS: Visit Provider Surgery
DX: Z93.2 Ileostomy status (principal)
CPT/HCPCS: 36415; 80053; 83735

== ENCOUNTER → 2022-12-13 08:44 | Outpatient (BNVA) | payer OTHER, SELFPAY | PROVIDERS: PCP Internal Medicine; Referring Provider Internal Medicine; Visit Provider Surgery | DX: Z13.89 Encounter for screening for other disorder (principal) ==

== ENCOUNTER 2023-02-06 07:14 | Outpatient (REF) | payer OTHER, SELFPAY ==
[2023-02-06 11:10] LABS: MANUAL DIFF FLAG NO
[2023-02-06 11:53] LABS: Basophils Percent Auto 0.7 % (0-2); Eosinophils Absolute Auto 0.1 X10*3/uL (0.0-0.4); Eosinophils Percent Auto 1.3 % (0-4); Hematocrit 43.8 % (37.0-47.0); Hemoglobin 14.9 g/dl (12.0-16.0); Imm Gran Abs Auto 0.02 X10*3/uL (0.00-0.03); Imm Gran Pct Auto 0.3 % (0.0-0.4); Lymphocytes Absolute Auto 2.4 X10*3/uL (1.2-4.9); Lymphocytes Percent Auto 39.8 % (20-40); Mean Corpuscular Hemoglobin 31.8 pg (27.0-33.0); Mean Corpuscular Volume 93.4 fL (80.0-98.0); Mean Platelet Volume 10.6 fL (9.4-12.3); Monocytes Absolute Auto 0.5 X10*3/uL (0.1-1.2); Monocytes Percent Auto 7.5 % (2-11); Neutrophils Absolute Auto 3.1 x10*3/uL (2.0-8.3); Neutrophils Percent Auto 50.4 % (45-73); Platelet Count 224 X10*3/uL (160-400); Red Blood Count 4.69 X10*6/uL (4.20-5.50); Red Cell Distribution Width 12.4 % (11.0-16.0); White Blood Count 6.1 X10*3/uL (4.8-10.8)
[2023-02-06 12:09] LABS: Alanine Aminotransferase 52 U/L (0-31); Albumin Level 4.5 g/dL (3.5-5.0); Alkaline Phosphatase 208 U/L (39-117); Anion Gap 15 (12-20); Aspartate Amino Transferase 28 U/L (5-31); Bilirubin Total 0.5 mg/dL (0.0-1.0); Blood Urea Nitrogen 20 mg/dL (9-16); Calcium 10.1 mg/dL (8.4-10.2); Carbon Dioxide 26 mmol/L (22-29); Chloride 106 mmol/L (96-108); Cholesterol 178 mg/dL; Estimated Glomerular Filt Rate > 60; Glucose Fasting 97 mg/dL (60-99); HDL Cholesterol 52 mg/dL; LDL Cholesterol Calculated 93 mg/dl; Magnesium 2.2 mg/dL (1.6-2.6); Potassium 4.8 mmol/L (3.3-5.1); Sodium 142 mmol/L (135-145); Total Protein 7.9 g/dL (6.5-8.0); Triglycerides 165 mg/dL
[2023-02-06 12:24] LABS: Folate 17.9 ng/mL (> or = 4.0); Vitamin B12 526 pg/mL (200-900); Vitamin D 25-OH Total 29.9 ng/mL (>30)
[2023-02-06 13:27] LABS: Erythrocyte Sedimentation Rate 50 MM/HR (0-20)
== END 2023-02-06 07:15 | disposition home or self-care (01) ==
LOC: HO.WFDLDS 07:14
PROVIDERS: Visit Provider Family Medicine
DX: Z00.00 Encounter for general adult medical examination without abnormal findings (principal); G43.909 Migraine, unspecified, not intractable, without status migrainosus; E55.9 Vitamin D deficiency, unspecified; E53.8 Deficiency of other specified B group vitamins; M19.90 Unspecified osteoarthritis, unspecified site; I10 Essential (primary) hypertension
CPT/HCPCS: 36415; 80053; 80061; 82306; 82607; 82746; 83735; 84443; 85025; 85652

== ENCOUNTER 2023-02-06 10:56 | Outpatient (REF) | payer OTHER, SELFPAY ==
[2023-02-06 14:17] LABS: Appearance Urine Cloudy; Color Urine Yellow; Glucose Urine UA Negative (Negative); Leukocyte Esterase Urine Negative (Negative); Nitrite Urine Negative (Negative); PH 5.5 (5.0-9.0); Specific Gravity - Urine >= 1.030 (1.005-1.025); Urine Blood Negative (Negative); Urine Ketones Negative (Negative); Urine Protein Negative (Neg-Trace)
[2023-02-06 15:22] LABS: Creatinine Urine 247.52 mg/dL; Microalbum/Creatinine Ratio Ur 10.9 ug/mg cr
== END 2023-02-06 10:57 | disposition home or self-care (01) ==
LOC: HO.WFDLNP 10:56
PROVIDERS: Visit Provider Family Medicine
DX: Z00.00 Encounter for general adult medical examination without abnormal findings (principal); I10 Essential (primary) hypertension; E55.9 Vitamin D deficiency, unspecified; E53.8 Deficiency of other specified B group vitamins; G43.909 Migraine, unspecified, not intractable, without status migrainosus; M19.90 Unspecified osteoarthritis, unspecified site
CPT/HCPCS: 81003; 82043

== ENCOUNTER → 2023-02-14 08:45 | Outpatient (BNVA) | payer OTHER, SELFPAY | PROVIDERS: PCP Internal Medicine; Visit Provider Surgery ==

== ENCOUNTER 2023-05-03 15:56 | Outpatient (AMB) | payer OTHER, SELFPAY ==
[2023-05-03 15:57] VITALS: BP 116/62; PULSE 77; O2SAT 98; BMI 26.7
--- NOTE | 2023-05-03 15:57 | A.OFFPC_ITS ---
Vital Signs 05/03/23 15:57 Height 5 ft 2 in Weight 146 lb 4 oz BMI 26.7 BP 116/62 Blood Pressure Location Lt brachial Position Standing Pulse 77 Pulse Source Pulse Oximeter Pulse Oximetry (%) 98 Oxygen Delivery Method Room Air Intake Visit Reasons: CPE with f/u labs and health maint. Intake Note: Patient is here for her physical today. Allergies omeprazole [OMEPRAZOLE] Allergy (Severe, Verified 05/03/23 16:01) N/V tramadol [From Ultram] Allergy (Intermediate, Verified 05/03/23 16:01) ITCHING ibuprofen [From Motrin] Allergy (Verified 05/03/23 16:01) Unknown Medication List - Last Reconciled 05/03/23 by Manolo Bonilla MD duloxetine 20 mg PO BID 30 days famotidine 20 mg PO BID fremanezumab-vfrm (Ajovy Syringe) 225 mg subcut Q30D magnesium oxide 800 mg (2 x 400 mg (241.3 mg magnesium)) PO BIDPC methocarbamol 750 mg PO TID wgprdxvd-rtn-kuir-FA-vit K-lut 8 mg iron-400 mcg-50 mcg (Centrum Silver Women) 1 tab PO DAILY ondansetron 1 tab PO DAILY PRN rizatriptan 1 tab PO DAILY PRN Tobacco use date assessed: 05/03/23 Dental Screening Dental Screen Date: 05/03/23 Did you have a dental visit in the last 12 months?: No Did you have a dental problem in the last 6 months where you did not have access to dental care?: No Was dental information given to patient?: Patient has dentist HPI CPE with f/u labs and health maint. HPI Details 63 y/o female presents for a CPE with f/u labs and health maintenance. Multiple medical conditions including fibromyalgia, osteoarthritis, colitis with ileostomy and migraines. Labs were drawn 02/06/23. Reviewed labs with pt. Elevated ALT - 52. Alkaline phosphatase 208 U/L. Triglycerides 165. TC 178. LDL 93. HDL 52. Vitamin D mildly low at 29.9. Elevated ESR at 50 and is followed by a printed circuit board reworker. She tries to work on a healthy diet. She does not remember when her last mammogram was - she notes it was at [place]. [facility] Medical History Arthritis Back pain Carpal tunnel syndrome COVID-19 vaccine series completed Crohn's disease Dizziness Environmental allergies Fatty liver disease, nonalcoholic Fever of unknown origin Fibromyalgia Gastroparesis GERD (gastroesophageal reflux disease) Herniated cervical disc Hx of migraines Ileostomy in place Intra-abdominal abscess Intra-abdominal abscess Iron deficiency anemia Leukocytosis Migraines Perforated viscus PONV (postoperative nausea and vomiting) Recurrent vomiting Seborrheic dermatitis Shock Sinusitis Thoracic disc herniation Vitamin D deficiency Surgical History History of esophagogastroduodenoscopy (EGD) History of surgery History of tonsillectomy History of tubal ligation Hx of cholecystectomy Hx of colonoscopy Hx of fusion of cervical spine Hx of shoulder surgery S/P colectomy Status post colostomy Family History Paternal Grandmother High blood pressure High cholesterol Mother Throat cancer Alcoholism Maternal Grandmother Breast cancer Paternal Grandfather Prostate cancer Family/Other High blood pressure Social History Household Members: Spouse and Family Household Members Other:: Stepson Housing: House Are you a primary day care home mother to a significant other at home: No Do you presently have visiting nurse or other home services: Yes Unable to assess alcohol history related to: Unknown Alcohol intake: never Patient Tobacco Use Status: Former Tobacco user Quit Date: 23 years ago Tobacco use type: Cigarette e-Cigarette/Vaping Use: Never Used Second Hand Smoke Exposure: No Advance Directives Date on File: 06/23/20 service: No Current occupational status: employed 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 Shamar Diaz, Janene Yates, Lavon Serna and colleagues, with an educational lo from [employer]. Review of Systems Const Denies chills, Denies fatigue, Denies fever(s), Denies headache(s) and Denies weakness Eyes Denies change in vision ENT Denies dizziness, Denies headache(s), Denies hearing loss, Denies nasal congestion, Denies sinus pain, Denies sinus pressure and Denies sore throat Card Denies chest pain, Denies lightheadedness, Denies dyspnea and Denies other (palpitations) Resp Denies cough, Denies dyspnea and Denies wheezing GI Denies abdominal pain, Denies melena, Denies hematochezia, Denies change in bowel habits, Denies dyspepsia and Denies nausea Denies hematuria and Denies dysuria Musc Denies abnormal gait, Denies myalgias, Denies arthralgias, Denies numbness and Denies tingling Skin/Breast Denies rash, Denies unusual bruising and Denies wounds Neuro Denies abnormal gait, Denies dizziness, Denies headache(s), Denies memory loss, Denies numbness, Denies Sensory deficit (Neuro), Denies tingling and Denies weakness Psych Denies anxiety, Denies depression and Denies memory loss Endo Denies cold intolerance, Denies fatigue, Denies heat intolerance, Denies polydipsia and Denies polyuria Ty/Lymph Denies easy bleeding and Denies easy bruising Aller/Immun Denies wheezing Physical exam (Primary Care) Vital Signs: Last Vital Signs Pulse 77 05/03/23 15:57 BP 116/62 05/03/23 15:57 Pulse Ox 98 05/03/23 15:57 Oxygen Delivery Method Room Air 05/03/23 15:57 BMI result Body Mass Index 26.7 Tobacco/Smoking Status: Tobacco use Status Tobacco use date assessed 05/03/23 05/03/23 16:06 Patient Tobacco Use Status Former Tobacco user 05/03/23 16:00 Tobacco use type Cigarette 05/03/23 16:00 e-Cigarette/Vaping Use Never Used 05/03/23 16:00 Thrive Assessment: Date of Thrive Assessment Date Thrive assessed 02/02/23 05/03/23 16:00 Const General: no acute distress, well developed, alert and awake Nutritional Appearance: well nourished Orientation/consciousness: patient oriented x3 HENMT Head: Yes normocephalic and Yes atraumatic Ears: hearing grossly normal bilaterally and TM's normal bilaterally General nose exam: Normal external nose present and Normal nares present Mouth: Normal oral and palatal mucosa present and moist mucous membranes Teeth and gingiva: dentition normal Throat: Yes posterior oropharynx normal Eyes General: appearance normal, both eyes and all related structures Pupils: Equal, round and reactive pupils present and Pupil accommodation reflex normal EOM: EOMs intact bilaterally Neck Neck: Yes normal visual inspection, Yes no lymphadenopathy and Yes trachea midline Thyroid: Thyroid normal Carotids: no bruits Lymphatic: no lymphadenopathy noted Chest Chest palpation & inspection: normal inspection of the chest Resp Effort & Inspection: normal respiratory effort Auscultation: clear to auscultation bilaterally Cardio Rate: regular rate Rhythm: regular rhythm Heart sounds: S1 normal heart sound present, S2 normal heart sound present, no gallops, no murmurs and no rubs Bruits: no abdominal aortic bruits and no carotid bruits GI Palpation (GI): No Abdominal aortic bruit present, Soft to palpation, nontender, No hepatosplenomegaly present and No Rebound tenderness present Auscultation: normal bowel sounds General: Yes no CVA tenderness Back/Spine/Pelvis Back: no CVA tenderness Cervical Spine: cervical ROM normal and No Cervical spine tenderness Thoracic/Lumbar Spine: thoraco-lumbar ROM normal, No pain with thoraco-lumbar ROM, No thoracic spinal tenderness and No lumbar spinal tenderness Skin Lesions: no lesions Rashes: no rashes Trauma: no lacerations or abrasions Wounds: no wounds Nails: normal Neuro General: patient oriented x3 Cranial nerves: Yes Equal, round and reactive pupils present Cognition (Neuro): normal cognition Gait exam (Neuro): Normal gait present Motor exam (neuro): 5/5 motor strength present throughout Sensory Exam: No Sensory deficit (Neuro) Deep tendon reflexes (DTR's): Right patellar reflex intensity grade: 2+ and Left patellar reflex intensity grade: 2+ Extrem General: Yes normal to inspection and No edema Psych Appearance: grossly normal Affect: normal affect Attitude: cooperative Thought process: Normal thought process present Assessment and Plan Assessment & Plan (1) Adult general medical exam: Code(s): Z00.00 - Encounter for general adult medical examination without abnormal findings Plan: 63-year-old female presents for complete physical exam Encouraged healthy diet with active lifestyle and plenty of exercise (2) Fibromyalgia: Code(s): M79.7 - Fibromyalgia Plan: Had added duloxetine at back and she is tolerating this well. She says this is helping with pain (3) Ileostomy in place: Code(s): Z93.2 - Ileostomy status Plan: Stable Follow-up with surgery as recommended Follow-up with Gastroenterology (4) Depression with anxiety: Code(s): F41.8 - Other specified anxiety disorders Plan: Much improved continue to change of work environment (5) Screening for cervical cancer: Code(s): Z12.4 - Encounter for screening for malignant neoplasm of cervix Plan: Due to follow-up with her web solutions architect. She will call her web solutions architect (6) Screening for colon cancer: Code(s): Z12.11 - Encounter for screening for malignant neoplasm of colon Plan: Followed by Dr. Peralta (7) Breast cancer screening by mammogram: Code(s): Z12.31 - Encounter for screening mammogram for malignant neoplasm of breast Plan: Due for mammogram. Ordered Orders: Orders MM tomosynthesis screening BI Today Z12.31 - Encounter for screening mammogram for malignant neoplasm of breast Coding Level of Care Code Est Pt Level 3 (82973) Est Pt Prev Care 40-64y(41876) Diagnoses Adult general medical exam Z00.00 Fibromyalgia M79.[address] Z93.2 Depression with anxiety F41.8 Screening for cervical cancer Z12.4 Screening for colon cancer Z12.11 Breast cancer screening by mammogram Z.31
== END 2023-05-03 16:31 | disposition home or self-care (01) ==
PROVIDERS: Visit Provider Family Medicine
DX: Z00.00 Encounter for general adult medical examination without abnormal findings (principal); M79.7 Fibromyalgia; Z93.2 Ileostomy status; F41.8 Other specified anxiety disorders
CPT/HCPCS: 99396

== ENCOUNTER 2023-05-16 08:45 | Outpatient (AMB) | payer OTHER, SELFPAY ==
[2023-05-16 08:48] VITALS: BP 118/57; PULSE 69; BMI 27.2
--- NOTE | 2023-05-16 08:48 | MHC.OFFVIS ---
Intake Vital Signs 05/16/23 08:48 Height 5 ft 2 in Weight 149 lb BMI 27.2 BP 118/57 L Blood Pressure Location Rt brachial Position Sitting Pulse 69 Intake Visit Reasons: 3 month follow up ostomy Intake Note: This patient presents for a three month follow-up assessment for ostomy. Patient c/o; reports no changes or complaints at this time. Lithographed Plate Inspector Required: No Accompanied by: Self / Same As Patient Allergies omeprazole [OMEPRAZOLE] Allergy (Severe, Verified 05/16/23 08:49) N/V tramadol [From Ultram] Allergy (Intermediate, Verified 05/16/23 08:49) ITCHING ibuprofen [From Motrin] Allergy (Verified 05/16/23 08:49) Unknown Medication List - Last Reviewed 05/16/23 by SAULO Loya cholecalciferol (vitamin D3) 25 mcg PO DAILY duloxetine 20 mg PO BID 30 days famotidine 20 mg PO BID fremanezumab-vfrm (Ajovy Syringe) 225 mg subcut Q30D magnesium oxide 800 mg (2 x 400 mg (241.3 mg magnesium)) PO BIDPC methocarbamol 750 mg PO TID artoabtc-uro-xfkr-FA-vit K-lut 8 mg iron-400 mcg-50 mcg (Centrum Silver Women) 1 tab PO DAILY ondansetron 1 tab PO DAILY PRN rizatriptan 1 tab PO DAILY PRN HPI 3 month follow up ostomy HPI Details She is here for follow-up after Callie's procedure last May, and subtotal colectomy last July,. Her ileostomy has been functioning well. 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 She actually has gained some weight. She says that she is back to her ?normal self?. [facility] Medical History Arthritis Back pain Carpal tunnel syndrome COVID-19 vaccine series completed Crohn's disease Dizziness Environmental allergies Fatty liver disease, nonalcoholic Fever of unknown origin Fibromyalgia Gastroparesis GERD (gastroesophageal reflux disease) Herniated cervical disc Hx of migraines Ileostomy in place Intra-abdominal abscess Intra-abdominal abscess Iron deficiency anemia Leukocytosis Migraines Perforated viscus PONV (postoperative nausea and vomiting) Recurrent vomiting Seborrheic dermatitis Shock Sinusitis Thoracic disc herniation Vitamin D deficiency Surgical History History of esophagogastroduodenoscopy (EGD) History of surgery History of tonsillectomy History of tubal ligation Hx of cholecystectomy Hx of colonoscopy Hx of fusion of cervical spine Hx of shoulder surgery S/P colectomy Status post colostomy Family History Paternal Grandmother High blood pressure High cholesterol Mother Throat cancer Alcoholism Maternal Grandmother Breast cancer Paternal Grandfather Prostate cancer Family/Other High blood pressure Social History Household Members: Spouse and Family Household Members Other:: Stepson Housing: House Are you a primary medication care manager to a significant other at home: No Do you presently have visiting nurse or other home services: Yes Unable to assess alcohol history related to: Unknown Alcohol intake: never Patient Tobacco Use Status: Former Tobacco user Quit Date: 23 years ago Tobacco use type: Cigarette e-Cigarette/Vaping Use: Never Used Second Hand Smoke Exposure: No Advance Directives Date on File: 06/23/20 service: No Current occupational status: employed 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 @ [employer] Cognitive needs: No Hearing needs: No Vision needs: No Review of Systems Const Denies chills and Denies fever(s) Card Denies chest pain, Denies dyspnea and Denies dyspnea on exertion Resp Denies cough, Denies dyspnea and Denies dyspnea on exertion GI Denies hematochezia and Denies change in bowel habits Denies hematuria Musc Denies back pain and Denies limited range of motion Neuro Denies focal weakness and Denies convulsions Psych Denies depression and Denies mood swings Physical Exam Const General: comfortable and no acute distress Orientation/consciousness: patient oriented x3 Neck Neck: Yes no lymphadenopathy Resp Auscultation: clear to auscultation bilaterally Cardio Rhythm: regular rhythm GI Other: Soft, ileostomy functioning well, midline incision well healed Palpation (GI): Soft to palpation, nontender and no guarding Neuro General: patient oriented x3 Assessment & Plan Assessment & Plan (1) Ileostomy in place: Code(s): Z93.2 - Ileostomy status Plan: She is doing very well after multiple surgeries last year. Ileostomy is functioning well. She has had no problems with her appliance. She says he is practically back to her regular self now has been working full-time again She says she would like to have a follow-up again in about 6 months for an overall check to especially with her ileostomy in place. Medications: New cholecalciferol (vitamin D3) 25 mcg PO DAILY Coding Level of Care Code Est Pt Level 3 (06059) Diagnoses Ileostomy in place Z93.2
== END 2023-05-16 09:06 | disposition home or self-care (01) ==
PROVIDERS: PCP Internal Medicine; Visit Provider Surgery
DX: Z93.2 Ileostomy status (principal)
CPT/HCPCS: 99213

== ENCOUNTER → 2023-05-16 08:45 | Outpatient (BNVA) | payer OTHER, SELFPAY | PROVIDERS: PCP Internal Medicine; Visit Provider Surgery ==

== ENCOUNTER 2023-06-14 09:44 | Outpatient (AMB) | payer OTHER, SELFPAY ==
--- NOTE | 2023-06-14 09:50 | MHC.OFFVIS ---
Intake Intake Visit Reasons: ignacia-ostomy issues, ? abscess Intake Note: This patient presents for an assessment for ignacia-ostomy issues, ?abscess. Patient c/o; reports last night temp 100.7F, redness, reports pus, reports was experiencing profuse sweating, reports pain. Massage Therapist Required: No Accompanied by: Self / Same As Patient Allergies omeprazole [OMEPRAZOLE] Allergy (Severe, Verified 06/14/23 09:55) N/V tramadol [From Ultram] Allergy (Intermediate, Verified 06/14/23 09:55) ITCHING ibuprofen [From Motrin] Allergy (Verified 06/14/23 09:55) Unknown Medication List - Last Reconciled 06/14/23 by Deandre Hagan MD cholecalciferol (vitamin D3) 25 mcg PO DAILY duloxetine 20 mg PO BID 30 days famotidine 20 mg PO BID fremanezumab-vfrm (Ajovy Syringe) 225 mg subcut Q30D magnesium oxide 800 mg (2 x 400 mg (241.3 mg magnesium)) PO BIDPC methocarbamol 750 mg PO TID zrnnqblf-jvy-mjtr-FA-vit K-lut 8 mg iron-400 mcg-50 mcg (Centrum Silver Women) 1 tab PO DAILY ondansetron 1 tab PO DAILY PRN rizatriptan 1 tab PO DAILY PRN HPI ignacia-ostomy issues, ? abscess HPI Details She called the office this morning to have her midline incision next to the stoma checked. She was concerned that there was an ?abscess? developing in the area. She states that there was redness and swelling starting 2 days ago. She had some tenderness on this area as well. This is all the same site were she had this chronic open wound from the incision which had eventually closed a few months ago. She says that she might have had some fevers so she decided to come to the office today. She otherwise has good oral intake. She good stoma function. [facility] Medical History (Updated 06/14/23 @ 10:06 by Deandre Hagan MD) Subcutaneous abscess Seborrheic dermatitis Migraines Fatty liver disease, nonalcoholic Sinusitis Ileostomy in place Dizziness Recurrent vomiting Gastroparesis Intra-abdominal abscess Intra-abdominal abscess Fever of unknown origin Leukocytosis Shock Perforated viscus COVID-19 vaccine series completed Environmental allergies PONV (postoperative nausea and vomiting) Thoracic disc herniation Herniated cervical disc Back pain Fibromyalgia Hx of migraines Crohn's disease Iron deficiency anemia Carpal tunnel syndrome Arthritis Vitamin D deficiency GERD (gastroesophageal reflux disease) Surgical History S/P colectomy Status post colostomy Hx of shoulder surgery History of surgery Hx of fusion of cervical spine Hx of cholecystectomy History of tonsillectomy History of esophagogastroduodenoscopy (EGD) History of tubal ligation Hx of colonoscopy Family History Paternal Grandmother High blood pressure High cholesterol Mother Throat cancer Alcoholism Maternal Grandmother Breast cancer Paternal Grandfather Prostate cancer Family/Other High blood pressure Social History Household Members: Spouse and Family Household Members Other:: Stepson Housing: House Are you a primary healthcare advisory services manager to a significant other at home: No Do you presently have visiting nurse or other home services: Yes Unable to assess alcohol history related to: Unknown Alcohol intake: never Patient Tobacco Use Status: Former Tobacco user Quit Date: 23 years ago Tobacco use type: Cigarette e-Cigarette/Vaping Use: Never Used Second Hand Smoke Exposure: No Advance Directives Date on File: 06/23/20 service: No Current occupational status: employed 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 I bluntly debrided the cavity with a Q-tip to empty all the purulent fluid. I applied a light packing and placed dry dressings Palpation (GI): Soft to palpation, not firm and no guarding Assessment & Plan Assessment & Plan (1) Subcutaneous abscess: Code(s): L02.91 - Cutaneous abscess, unspecified Plan: It appears that she had of the subcutaneous abscess on the old nonhealing wound which had reeepithelialized. This had spontaneously opened up and drained. There was still some residual abscess fluid so I had debrided this with Q-tips I applied light packing with the tip of the gauze. There may be suture granuloma in this area causing this recent abscess I instructed her on doing wound care. I will send her a prescription for oral antibiotics I will see her again in the office in about 2 weeks for a wound check. Coding Level of Care Code Est Pt Level 3 (44036) Diagnoses Subcutaneous abscess L02.91
== END 2023-06-14 10:06 | disposition home or self-care (01) ==
PROVIDERS: PCP Family Medicine; Visit Provider Surgery
DX: L02.91 Cutaneous abscess, unspecified (principal)
CPT/HCPCS: 99213

== ENCOUNTER → 2023-06-14 09:44 | Outpatient (BNVA) | payer OTHER, SELFPAY | PROVIDERS: PCP Family Medicine; Visit Provider Surgery ==

== ENCOUNTER 2023-06-20 11:20 | Outpatient (AMB) | payer OTHER, SELFPAY ==
--- NOTE | 2023-06-20 11:29 | MHC.OFFWIV ---
Intake Vital Signs 06/20/23 11:31 Height 5 ft 2 in Weight 158 lb BMI 28.9 BP 122/62 Blood Pressure Location Lt brachial Position Sitting Pulse 104 H Pulse Source Pulse Oximeter Temp 98.1 F Temp Source Temporal Artery Scan Pulse Oximetry (%) 98 Intake Visit Reasons: EP-back pain-waiting room Intake Note: pt is here for c/o upper back pain since yesterday denies injury Patient Tobacco Use Status: Former Tobacco user Quit Date: 23 years ago Allergies omeprazole [OMEPRAZOLE] Allergy (Severe, Verified 06/20/23 11:57) N/V tramadol [From Ultram] Allergy (Intermediate, Verified 06/20/23 11:57) ITCHING ibuprofen [From Motrin] Allergy (Verified 06/20/23 11:57) Unknown Medication List - Last Reconciled 06/20/23 by Delphine Chan, TELEPHONE ORDER CLERK ROOM SERVICE-BC amoxicillin-pot clavulanate 875-125 mg 1 tab PO BID cholecalciferol (vitamin D3) 25 mcg PO DAILY duloxetine 20 mg PO BID 30 days famotidine 20 mg PO BID fremanezumab-vfrm (Ajovy Syringe) 225 mg subcut Q30D magnesium oxide 800 mg (2 x 400 mg (241.3 mg magnesium)) PO BIDPC methocarbamol 750 mg PO TID narxojfr-fsn-hfng-FA-vit K-lut 8 mg iron-400 mcg-50 mcg (Centrum Silver Women) 1 tab PO DAILY ondansetron 1 tab PO DAILY PRN rizatriptan 1 tab PO DAILY PRN Do you need a note to return to daycare/school/sports/work: Yes HPI HPI Comments History of Present Illness Details HERE TODAY WITH COMPLAINTS OF PAIN IN HER RIGHT UPPER BACK THAT STARTED A FEW DAYS AFTER TAKING A HIKE WITH HEAVY BACKPACK. REPORTS ON SUNDAY SHE TOOK A WALK WITH A HEAVY BACKPACK ON. THE PAIN STARTED YESTERDAY AND SEEMS TO BE WORSE SINCE ONSET. HURTS WHEN SHE TAKES A DEEP BREATH. MOVING HER HEAD AND TURNING HER NECK CAUSES PAIN. THE PAIN IS CONSTANT, LIMITED TO THE RIGHT SIDE IS NOT AFFECTED BY FOOD INTAKE. SHE SAYS THE PAIN IS SHARP. SHE DENIES FEVER CHILLS CHEST PAIN SHORTNESS OF BREATH. SHE TAKES MUSCLE RELAXERS FOR OTHER HEALTH CONDITIONS AND HAS TAKEN 2 ADDITIONAL MUSCLE RELAXERS WITHOUT MUCH RELIEF. DENIES NAUSEA VOMITING, PHOTOPHOBIA, HEADACHE. [facility] Medical History (Updated 06/20/23 @ 12:17 by Delphine Chan, [facility]) Subcutaneous abscess Seborrheic dermatitis Migraines Fatty liver disease, nonalcoholic Sinusitis Ileostomy in place Dizziness Recurrent vomiting Gastroparesis Intra-abdominal abscess Intra-abdominal abscess Fever of unknown origin Leukocytosis Shock Perforated viscus COVID-19 vaccine series completed Environmental allergies PONV (postoperative nausea and vomiting) Thoracic disc herniation Herniated cervical disc Back pain Fibromyalgia Hx of migraines Crohn's disease Iron deficiency anemia Carpal tunnel syndrome Arthritis Vitamin D deficiency GERD (gastroesophageal reflux disease) Surgical History S/P colectomy Status post colostomy Hx of shoulder surgery History of surgery Hx of fusion of cervical spine Hx of cholecystectomy History of tonsillectomy History of esophagogastroduodenoscopy (EGD) History of tubal ligation Hx of colonoscopy Family History Paternal Grandmother High blood pressure High cholesterol Mother Throat cancer Alcoholism Maternal Grandmother Breast cancer Paternal Grandfather Prostate cancer Family/Other High blood pressure Social History Household Members: Spouse and Family Household Members Other:: [place] Housing: House Are you a primary family day care provider to a significant other at home: No Do you presently have visiting nurse or other home services: Yes Unable to assess alcohol history related to: Unknown Alcohol intake: never Patient Tobacco Use Status: Former Tobacco user Quit Date: 23 years ago Tobacco use type: Cigarette e-Cigarette/Vaping Use: Never Used Second Hand Smoke Exposure: No Advance Directives Date on File: 06/23/20 service: No Current occupational status: employed 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 RIGHT PARASPINAL PROXIMAL TO SCAP IS A PALPABLE MUSCLE WHICH IS TENDER TO PALP. THE TENDERNESS EXTENDS UP INTO THE RIGHT STERNOCLENOIDMASTOID REGION. THERE IS NO PAIN ON LEFT SIDE. THE SKIN TO BACK IS CLEAR. LS CTAB RRR SKIN PWD Assessment & Plan Assessment & Plan (1) Muscle strain of right upper back: Comment: ADVISED TO CONT MUSCLE RELAXERS ORDERED. DO NOT TAKE ADDL DOSES. START STEROID, TAKE W/ FOOD. APPLY WARM MOIST HEAT AND TOPICAL ANALGESICS SUCH LIDOCAINE PATCH, ETC. GENTLE MASSAGE AND ROM CAN HELP TOO, ADVISED IF NO IMPROVEMENT OR ANY WORSENING TO SEEK ADDL CARE. Code(s): S29.012A - Strain of muscle and tendon of back wall of thorax, initial encounter Medications: New prednisone 50 mg PO DAILY 5 days 5 tabs 0RF Coding Level of Care Code Est Pt Level 3 (65018) Diagnoses Muscle strain of right upper back S29.012A
[2023-06-20 11:31] VITALS: BP 122/62; PULSE 104; TEMP 36.7; O2SAT 98; BMI 28.9
== END 2023-06-20 12:13 | disposition home or self-care (01) ==
PROVIDERS: PCP Family Medicine; Visit Provider Nurse Practitioner Family
DX: S29.012A Strain of muscle and tendon of back wall of thorax, initial encounter (principal)
CPT/HCPCS: 99213

== ENCOUNTER 2023-06-28 09:08 | Outpatient (AMB) | payer OTHER, SELFPAY ==
--- NOTE | 2023-06-28 09:10 | MHC.OFFVIS ---
Intake Vital Signs 06/28/23 09:13 Height 5 ft 2 in BP 115/55 L Blood Pressure Location Rt brachial Position Sitting Pulse 73 Intake Visit Reasons: Subcutaneous abscess, ileostomy, 2 wk follow up Intake Note: This patient presents for a two week follow-up assessment for Subcutaneous abscess, ileostomy. Patient c/o; reports wound is healing. 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 Soft Copper Required: No Accompanied by: Other Relationship Allergies omeprazole [OMEPRAZOLE] Allergy (Severe, Verified 06/28/23 09:21) N/V tramadol [From Ultram] Allergy (Intermediate, Verified 06/28/23 09:21) ITCHING ibuprofen [From Motrin] Allergy (Verified 06/28/23 09:21) Unknown Medication List - Last Reconciled 06/28/23 by Deandre Hagan MD amoxicillin-pot clavulanate 875-125 mg 1 tab PO BID cholecalciferol (vitamin D3) 25 mcg PO DAILY duloxetine 20 mg PO BID 30 days famotidine 20 mg PO BID fremanezumab-vfrm (Ajovy Syringe) 225 mg subcut Q30D magnesium oxide 800 mg (2 x 400 mg (241.3 mg magnesium)) PO BIDPC methocarbamol 750 mg PO TID snjpwvbg-xgy-iptq-FA-vit K-lut 8 mg iron-400 mcg-50 mcg (Centrum Silver Women) 1 tab PO DAILY ondansetron 1 tab PO DAILY PRN prednisone 50 mg PO DAILY 5 days rizatriptan 1 tab PO DAILY PRN HPI Subcutaneous abscess, ileostomy, 2 wk follow up HPI Details She is here for follow-up for her open wound on the old incision. She had an abscess that had opened up and I had bluntly debrided the area. This was probably secondary to a granuloma within the wound. She feels much better. She says she does not have pain and the drainage has improved significantly. [facility] Medical History Subcutaneous abscess Seborrheic dermatitis Migraines Fatty liver disease, nonalcoholic Sinusitis Ileostomy in place Dizziness Recurrent vomiting Gastroparesis Intra-abdominal abscess Intra-abdominal abscess Fever of unknown origin Leukocytosis Shock Perforated viscus COVID-19 vaccine series completed Environmental allergies PONV (postoperative nausea and vomiting) Thoracic disc herniation Herniated cervical disc Back pain Fibromyalgia Hx of migraines Crohn's disease Iron deficiency anemia Carpal tunnel syndrome Arthritis Vitamin D deficiency GERD (gastroesophageal reflux disease) Surgical History S/P colectomy Status post colostomy Hx of shoulder surgery History of surgery Hx of fusion of cervical spine Hx of cholecystectomy History of tonsillectomy History of esophagogastroduodenoscopy (EGD) History of tubal ligation Hx of colonoscopy Family History Paternal Grandmother High blood pressure High cholesterol Mother Throat cancer Alcoholism Maternal Grandmother Breast cancer Paternal Grandfather Prostate cancer Family/Other High blood pressure Social History Household Members: Spouse and Family Household Members Other:: [place] Housing: House Are you a primary child caregiver private home to a significant other at home: No Do you presently have visiting nurse or other home services: Yes Unable to assess alcohol history related to: Unknown Alcohol intake: never Patient Tobacco Use Status: Former Tobacco user Quit Date: 23 years ago Tobacco use type: Cigarette e-Cigarette/Vaping Use: Never Used Second Hand Smoke Exposure: No Advance Directives Date on File: 06/23/20 service: No Current occupational status: employed 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 @ [employer] Cognitive needs: No Hearing needs: No Vision needs: No Review of Systems Const Denies chills and Denies fever(s) Card Denies chest pain Resp Denies cough Denies difficulty voiding Physical Exam Const General: comfortable and no acute distress Resp Effort & Inspection: normal respiratory effort GI Other: Ileostomy functioning well, small open wound on the midline incision, scanty drainage, no induration, no fluctuance, open wound much smaller Palpation (GI): Soft to palpation, not firm, nontender and no guarding Assessment & Plan Assessment & Plan (1) Subcutaneous abscess: Code(s): L02.91 - Cutaneous abscess, unspecified Plan: This has improved significantly. There is scanty drainage now. There is no residual induration or fluctuance. This is likely secondary to granuloma within the incision She is to continue to do good wound care with frequent dressing changes. I will see her again in the office for follow-up in about a month. Coding Level of Care Code Est Pt Level 2 (03032) Diagnoses Subcutaneous abscess L02.91
[2023-06-28 09:13] VITALS: BP 115/55; PULSE 73
== END 2023-06-28 09:30 | disposition home or self-care (01) ==
PROVIDERS: PCP Family Medicine; Visit Provider Surgery
DX: L02.91 Cutaneous abscess, unspecified (principal)
CPT/HCPCS: 99212

== ENCOUNTER → 2023-06-28 09:08 | Outpatient (BNVA) | payer OTHER, SELFPAY | PROVIDERS: PCP Family Medicine; Visit Provider Surgery ==

== ENCOUNTER 2023-08-20 09:55 | Outpatient (REF) | payer OTHER, SELFPAY ==
[2023-08-20 11:29] LABS: MANUAL DIFF FLAG NO
[2023-08-20 11:39] LABS: Basophils Absolute Auto 0.1 X10*3/uL (0.0-0.2); Basophils Percent Auto 1.3 % (0-2); Eosinophils Absolute Auto 0.1 X10*3/uL (0.0-0.4); Eosinophils Percent Auto 1.5 % (0-4); Hematocrit 40.3 % (37.0-47.0); Hemoglobin 13.7 g/dl (12.0-16.0); Imm Gran Abs Auto 0.04 X10*3/uL (0.00-0.03); Imm Gran Pct Auto 0.6 % (0.0-0.4); Lymphocytes Absolute Auto 2.2 X10*3/uL (1.2-4.9); Lymphocytes Percent Auto 36.2 % (20-40); Mean Corpuscular Hemoglobin 31.1 pg (27.0-33.0); Mean Corpuscular Volume 91.6 fL (80.0-98.0); Mean Platelet Volume 10.1 fL (9.4-12.3); Monocytes Absolute Auto 0.5 X10*3/uL (0.1-1.2); Monocytes Percent Auto 8.7 % (2-11); Neutrophils Absolute Auto 3.2 x10*3/uL (2.0-8.3); Neutrophils Percent Auto 51.7 % (45-73); Platelet Count 237 X10*3/uL (160-400); Red Cell Distribution Width 12.3 % (11.0-16.0); White Blood Count 6.2 X10*3/uL (4.8-10.8)
[2023-08-20 12:14] LABS: Alanine Aminotransferase 114 U/L (0-31); Albumin Level 4.2 g/dL (3.5-5.0); Alkaline Phosphatase 205 U/L (39-117); Anion Gap 11 (12-20); Aspartate Amino Transferase 58 U/L (5-31); Bilirubin Total 0.3 mg/dL (0.0-1.0); Blood Urea Nitrogen 13 mg/dL (9-16); C Reactive Protein 0.68 mg/dL (< or = 0.50); Calcium 9.5 mg/dL (8.4-10.2); Carbon Dioxide 29 mmol/L (22-29); Chloride 108 mmol/L (96-108); Estimated Glomerular Filt Rate > 60; Glucose Random 97 mg/dL (60-115); Magnesium 2.1 mg/dL (1.6-2.6); Potassium 4.2 mmol/L (3.3-5.1); Sodium 144 mmol/L (135-145); Total Protein 7.4 g/dL (6.5-8.0)
[2023-08-20 12:20] LABS: Erythrocyte Sedimentation Rate 26 MM/HR (0-20)
== END 2023-08-20 09:56 | disposition home or self-care (01) ==
LOC: HO.WFDLDS 09:55
PROVIDERS: Visit Provider Internal Medicine Rheumatology
DX: M06.4 Inflammatory polyarthropathy (principal); I73.00 Raynaud's syndrome without gangrene; E83.42 Hypomagnesemia
CPT/HCPCS: 36415; 80053; 83735; 85025; 85652; 86140

== ENCOUNTER 2023-09-11 13:32 | Outpatient (AMB) | payer OTHER, SELFPAY ==
[2023-09-11 13:37] VITALS: BP 138/74; PULSE 120; RESP 13; TEMP 36.6; O2SAT 99; BMI 32.1
--- NOTE | 2023-09-11 13:37 | MHC.PC.OV ---
Vital Signs 09/11/23 13:37 Height 5 ft 2 in Weight 175 lb 6 oz BMI 32.1 BP 138/74 Blood Pressure Location Rt brachial Position Sitting Respiration 13 Pulse 120 H Pulse Source Pulse Oximeter Temp 97.9 F Temp Source Temporal Artery Scan Pulse Oximetry (%) 99 Oxygen Delivery Method Room Air Intake Visit Reasons: ? of pink eye Time Study Engineer Required: No Accompanied by: Self / Same As Patient Allergies omeprazole [OMEPRAZOLE] Allergy (Severe, Verified 09/11/23 14:12) N/V tramadol [From Ultram] Allergy (Intermediate, Verified 09/11/23 14:12) ITCHING ibuprofen [From Motrin] Allergy (Verified 09/11/23 14:12) Unknown Medication List - Last Reconciled 09/11/23 by Gage Swanson CNP cholecalciferol (vitamin D3) 25 mcg PO DAILY duloxetine 20 mg PO BID 30 days fremanezumab-vfrm (Ajovy Syringe) 225 mg subcut Q30D loratadine (Claritin) 10 mg PO DAILY magnesium oxide 800 mg (2 x 400 mg (241.3 mg magnesium)) PO BIDPC methocarbamol 750 mg PO TID poodhrko-plg-svxs-FA-vit K-lut 8 mg iron-400 mcg-50 mcg (Centrum Silver Women) 1 tab PO DAILY ondansetron 1 tab PO DAILY PRN pantoprazole 40 mg PO DAILY rizatriptan 1 tab PO DAILY PRN Tobacco use date assessed: 05/03/23 Dental Screening Dental Screen Date: 09/11/23 Did you have a dental visit in the last 12 months?: No Did you have a dental problem in the last 6 months where you did not have access to dental care?: No Was dental information given to patient?: Patient has dentist HPI HPI Comments History of Present Illness Details 63-year-old female presents with complaints of pink eyes, swelling around the eyes, headache, runny nose, mild sore throat. She reports pain and blurry vision of both eyes. Her symptoms have been ongoing for about a week. Her eyes signs and symptoms started yesterday. She notes initial fever the completely subsided. She has been taking DayQuil. No sick contacts. [facility] Medical History Subcutaneous abscess Seborrheic dermatitis Migraines Fatty liver disease, nonalcoholic Sinusitis Ileostomy in place Dizziness Recurrent vomiting Gastroparesis Intra-abdominal abscess Intra-abdominal abscess Fever of unknown origin Leukocytosis Shock Perforated viscus COVID-19 vaccine series completed Environmental allergies PONV (postoperative nausea and vomiting) Thoracic disc herniation Herniated cervical disc Back pain Fibromyalgia Hx of migraines Crohn's disease Iron deficiency anemia Carpal tunnel syndrome Arthritis Vitamin D deficiency GERD (gastroesophageal reflux disease) Surgical History S/P colectomy Status post colostomy Hx of shoulder surgery History of surgery Hx of fusion of cervical spine Hx of cholecystectomy History of tonsillectomy History of esophagogastroduodenoscopy (EGD) History of tubal ligation Hx of colonoscopy Family History Paternal Grandmother High blood pressure High cholesterol Mother Throat cancer Alcoholism Maternal Grandmother Breast cancer Paternal Grandfather Prostate cancer Family/Other High blood pressure Social History Household Members: Spouse and Family Household Members Other:: [place] Housing: House Are you a primary family day care worker to a significant other at home: No Do you presently have visiting nurse or other home services: Yes Unable to assess alcohol history related to: Unknown Alcohol intake: never Comment: restraints Patient Tobacco Use Status: Former Tobacco user Quit Date: 23 years ago Tobacco use type: Cigarette e-Cigarette/Vaping Use: Never Used Second Hand Smoke Exposure: No Advance Directives Date on File: 06/23/20 service: No Current occupational status: employed 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 Shamar Diaz, Janene Yates, Lavon Serna and colleagues, with an educational lo from [employer] Review of Systems Const Details: Const Denies chills, Denies fatigue, Denies fever(s), Denies headache(s) and Denies weakness ENT Reports as per HPI Card Denies chest pain, Denies lightheadedness, Denies dyspnea and Denies other (Palpitations) Resp Denies cough, Denies dyspnea, Denies wheezing and Denies other ( shortness of breath) GI Denies abdominal pain, Denies melena, Denies hematochezia, Denies change in bowel habits, Denies dyspepsia and Denies nausea Denies hematuria and Denies dysuria Musc Denies abnormal gait, Denies myalgias, Denies arthralgias, Denies numbness and Denies tingling Skin/Breast Denies rash, Denies unusual bruising and Denies wounds Neuro Denies abnormal gait, Denies dizziness, Denies headache(s), Denies memory loss, Denies numbness, Denies Sensory deficit (Neuro), Denies tingling and Denies weakness Psych Denies anxiety, Denies depression, Denies memory loss Endo Denies cold intolerance, Denies fatigue, Denies heat intolerance, Denies polydipsia and Denies polyuria Aller/Immun Denies wheezing Physical exam (Primary Care) Vital Signs: Last Vital Signs Temp 97.9 F 09/11/23 13:37 Pulse 120 H 09/11/23 13:37 Resp 13 09/11/23 13:37 BP 138/74 09/11/23 13:37 Pulse Ox 99 09/11/23 13:37 Oxygen Delivery Method Room Air 09/11/23 13:37 BMI result Body Mass Index 32.1 Tobacco/Smoking Status: Tobacco use Status Tobacco use date assessed 05/03/23 09/11/23 13:53 Patient Tobacco Use Status Former Tobacco user 09/11/23 13:53 Tobacco use type Cigarette 09/11/23 13:53 e-Cigarette/Vaping Use Never Used 09/11/23 13:53 Thrive Assessment: Date of Thrive Assessment Date Thrive assessed 02/02/23 09/11/23 13:53 Const Other: General: no acute distress and well developed Nutritional Appearance: well nourished Orientation/consciousness: patient oriented x3 HENMT Head is normocephalic Bilateral ear canal and TM are normal Nasal turbinates and oropharynx are pink and moist Sinuses are nontender with palpation No auricular or cervical lymphadenopathy Eyes General: Conjunctiva of both eyes with significant erythema, mucopurulent discharge noted from both eyes, moderate periorbital edema bilaterally Pupils: Equal, round and reactive pupils present EOM: EOMs intact bilaterally Resp Effort & Inspection: normal respiratory effort Auscultation: clear to auscultation bilaterally Cardio Rate: regular rate Rhythm: regular rhythm Heart sounds: S1 normal heart sound present, S2 normal heart sound present, no gallops, no murmurs and no rubs GI Palpation (GI): No Abdominal aortic bruit present, Soft to palpation, nontender, No hepatosplenomegaly present and No Rebound tenderness present Auscultation: normal bowel sounds General: Yes no CVA tenderness Back/Spine/Pelvis Back: no CVA tenderness Cervical Spine: cervical ROM normal and No Cervical spine tenderness Thoracic/Lumbar Spine: thoraco-lumbar ROM normal, No pain with thoraco-lumbar ROM, No thoracic spinal tenderness and No lumbar spinal tenderness Extrem General: Yes normal to inspection, No edema and No calf tenderness Skin General: warm and dry. Normal skin color. Normal skin turgor Neuro General: patient oriented x3, gait normal and no focal neuro deficit Cranial nerves: Yes Equal, round and reactive pupils present Cognition (Neuro): normal cognition Gait exam (Neuro): Normal gait present Sensory Exam: No Sensory deficit (Neuro) Psych Appearance: grossly normal Affect: normal affect Attitude: cooperative Thought process: Normal thought process present Assessment and Plan Assessment & Plan (1) Bacterial conjunctivitis of both eyes: Code(s): H10.9 - Unspecified conjunctivitis; B96.89 - Other specified bacterial agents as the cause of diseases classified elsewhere Plan: Presents with bilat eye redness, swelling, pain, blurry vision, and discharge Conjunctiva of both eyes with significant erythema, mucopurulent discharge noted from both eyes, moderate periorbital edema bilaterally Erythromycin ointment ordered. Use as prescribed Augmentin ordered prophylactically for sinus infection or periorbital cellulitis. Take as prescribed Warm/cold compresses encouraged May take Tylenol for pain, discomfort, fever Good on hygiene instructed and encouraged to limit spread Follow-up with worsening or new symptoms Verbalized understanding and agreed with treatment plan (2) Viral upper respiratory illness: Code(s): J06.9 - Acute upper respiratory infection, unspecified Plan: Likely viral illness though possibly allergies Viral illness There is no antibiotic medication for viruses.? They must run their course.? Most average 5-7 days but 7-10 days is not uncommon and up to 14 days is still possible.? A cough is often the last symptom to resolve and this can last for weeks in some cases. Rest Hydrate well -? Drink plenty of fluids.? Especially water. Tylenol for muscle aches, headache, fever/discomfort Cannot rule out COVID-19/RSV/Flu infection Nasal swab acquired and will be sent to the lab Return for new or worsening symptoms Verbalized understanding and agreed with treatment plan. Orders: Orders SARS-CoV2/FLU/RSV Today R09.89 - Other specified symptoms and signs involving the circulatory and respiratory systems Medications: New erythromycin 0.5 inches ophthalmic (eye) TID 3.5 grams 0RF 7 days amoxicillin-pot clavulanate 500-125 mg (Augmentin) 1 tab PO TID 21 tabs 0RF 7 days Coding Level of Care Code Est Pt Level 3 (88072) Diagnoses Bacterial conjunctivitis of both eyes H10.9; B96.89 Viral upper respiratory illness J06.9
== END 2023-09-11 14:54 | disposition home or self-care (01) ==
PROVIDERS: PCP Family Medicine; Visit Provider Nurse Practitioner Family
DX: H10.9 Unspecified conjunctivitis (principal); B96.89 Other specified bacterial agents as the cause of diseases classified elsewhere; J06.9 Acute upper respiratory infection, unspecified
CPT/HCPCS: 99213

== ENCOUNTER 2023-09-11 14:28 | Outpatient (REF) | payer OTHER, SELFPAY | END 2023-09-11 14:29 | disposition home or self-care (01) | LOC: HO.LAB 14:28 | PROVIDERS: Visit Provider Nurse Practitioner Family | DX: R09.89 Other specified symptoms and signs involving the circulatory and respiratory systems (principal); Z11.52 Encounter for screening for COVID-19; Z20.822 Contact with and (suspected) exposure to COVID-19 | CPT/HCPCS: 0241U ==

== ENCOUNTER 2023-09-26 14:35 | Outpatient (AMB) | payer OTHER, SELFPAY ==
[2023-09-26 14:41] VITALS: BP 126/72; PULSE 88; TEMP 37; O2SAT 100; BMI 33.1
--- NOTE | 2023-09-26 14:41 | A.OFFPC_ITS ---
Vital Signs 09/26/23 14:41 Height 5 ft 2 in Weight 181 lb 4 oz BMI 33.1 BP 126/72 Blood Pressure Location Lt brachial Position Sitting Pulse 88 Pulse Source Pulse Oximeter Temp 98.6 F Temp Source Oral Pulse Oximetry (%) 100 Oxygen Delivery Method Room Air Intake Visit Reasons: Sore Throat Intake Note: Patient is here with bad sore throat and flu like symptoms, since . Allergies omeprazole [OMEPRAZOLE] Allergy (Severe, Verified 09/26/23 14:43) N/V tramadol [From Ultram] Allergy (Intermediate, Verified 09/26/23 14:43) ITCHING ibuprofen [From Motrin] Allergy (Verified 09/26/23 14:43) Unknown Tobacco use date assessed: 09/26/23 HPI Sore Throat HPI Details 63 y/o female presents today with compla ints of a sore throat. Pt reports sore throat along with flu like symptoms since September 05. Pt notes fevers at the beginning. She notes family members with covid. [facility] Medical History Subcutaneous abscess Seborrheic dermatitis Migraines Fatty liver disease, nonalcoholic Sinusitis Ileostomy in place Dizziness Recurrent vomiting Gastroparesis Intra-abdominal abscess Intra-abdominal abscess Fever of unknown origin Leukocytosis Shock Perforated viscus COVID-19 vaccine series completed Environmental allergies PONV (postoperative nausea and vomiting) Thoracic disc herniation Herniated cervical disc Back pain Fibromyalgia Hx of migraines Crohn's disease Iron deficiency anemia Carpal tunnel syndrome Arthritis Vitamin D deficiency GERD (gastroesophageal reflux disease) Surgical History S/P colectomy Status post colostomy Hx of shoulder surgery History of surgery Hx of fusion of cervical spine Hx of cholecystectomy History of tonsillectomy History of esophagogastroduodenoscopy (EGD) History of tubal ligation Hx of colonoscopy Family History Paternal Grandmother High blood pressure High cholesterol Mother Throat cancer Alcoholism Maternal Grandmother Breast cancer Paternal Grandfather Prostate cancer Family/Other High blood pressure Social History Household Members: Spouse and Family Household Members Other:: Stepson Housing: House Are you a primary infant childcare provider to a significant other at home: No Do you presently have visiting nurse or other home services: Yes Unable to assess alcohol history related to: Unknown Alcohol intake: never Comment: restraints Patient Tobacco Use Status: Former Tobacco user Quit Date: 23 years ago Tobacco use type: Cigarette e-Cigarette/Vaping Use: Never Used Second Hand Smoke Exposure: No Advance Directives Date on File: 06/23/20 service: No Current occupational status: employed 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 Shaamr Diaz, Janene Yates, Lavon Serna and colleagues, with an educational lo from [employer]. Review of Systems Const Denies chills, Denies fatigue, Denies fever(s), Denies headache(s) and Denies weakness ENT Details: R ear pain Denies dizziness, Denies headache(s) and Reports nasal congestion Card Denies dyspnea Resp Denies cough, Denies dyspnea, Denies wheezing and Denies other (shortness of breath) Musc Denies numbness and Denies tingling Neuro Denies dizziness, Denies headache(s), Denies numbness, Denies tingling and Denies weakness Psych Denies anxiety and Denies depression Endo Denies fatigue Aller/Immun Denies wheezing Physical exam (Primary Care) Vital Signs: Last Vital Signs Temp 98.6 F 09/26/23 14:41 Pulse 88 09/26/23 14:41 BP 126/72 09/26/23 14:41 Pulse Ox 100 09/26/23 14:41 Oxygen Delivery Method Room Air 09/26/23 14:41 BMI result Body Mass Index 33.1 Tobacco/Smoking Status: Tobacco use Status Tobacco use date assessed 09/26/23 09/26/23 14:51 Patient Tobacco Use Status Former Tobacco user 09/26/23 14:51 Tobacco use type Cigarette 09/26/23 14:51 e-Cigarette/Vaping Use Never Used 09/26/23 14:51 Thrive Assessment: Date of Thrive Assessment Date Thrive assessed 02/02/23 09/26/23 14:51 Const General: well developed; No acute distress Nutritional Appearance: well nourished Orientation/consciousness: patient oriented x3 HENMT Other: Tiny vesicles in posterior pharynx Head: Yes normocephalic and Yes atraumatic Eyes General: appearance normal, both eyes and all related structures Pupils: Equal, round and reactive pupils present EOM: EOMs intact bilaterally Resp Effort & Inspection: normal respiratory effort Neuro General: patient oriented x3 and gait normal Cranial nerves: Yes Equal, round and reactive pupils present Psych Affect: normal affect Assessment and Plan Assessment & Plan (1) Viral illness: Code(s): B34.9 - Viral infection, unspecified Plan: Checking?COVID/flu/RSV There?is?no?antibiotic?medication?for?viruses.??They?must?run?their?cou rse.??Most?average?5-7?days?but?7-10?days?is?not?uncommon?and?up?to?14?days?is?s till?possible.??A?cough?is?often?the?last?symptom?to?resolve?and?this?can?last?f or?weeks?in?some?cases. Rest Hydrate?well?-??Drink?plenty?of?fluids.??Especially?water. Tylenol?or?ibuprofen?for?muscle?aches,?headache,?fever/discomfort (2) Sore throat: Code(s): J02.9 - Acute pharyngitis, unspecified Plan: Strep?negative?and?no?patchy?exudates. She?does?have?tiny?vesicles?in?the?posterior?pharynx Likely?secondary?to?a?viral?illness (3) Right ear pain: Code(s): H92.01 - Otalgia, right ear Plan: Scant?effusion?with?questionable?purulent?material?at?inferior?rim Question?early?otitis Start?amoxicillin Orders: Orders AMB Rapid Strep Screen Today J02.9 - Acute pharyngitis, unspecified Medications: New amoxicillin 500 mg PO Q12H 20 tabs 0RF 10 days fluconazole 150 mg PO Q3D 2 tabs 0RF 2 doses Coding Level of Care Code Est Pt Level 3 (88899) Diagnoses Viral illness B34.9 Sore throat J02.9 Right ear pain H92.01
== END 2023-09-26 15:14 | disposition home or self-care (01) ==
PROVIDERS: PCP Family Medicine; Visit Provider Family Medicine
DX: B34.9 Viral infection, unspecified (principal); J02.9 Acute pharyngitis, unspecified; H92.01 Otalgia, right ear
CPT/HCPCS: 87880; 99213

== ENCOUNTER 2023-09-26 15:19 | Outpatient (REF) | payer OTHER, SELFPAY ==
[2023-09-27 12:43] LABS: Influenza A PCR NEGATIVE (Negative); Influenza B PCR NEGATIVE (Negative); Resp Syncy Virus RNA Qual PCR NEGATIVE (Negative); SARS COV2 PCR INHOUSE NEGATIVE (Negative)
== END 2023-09-26 15:20 | disposition home or self-care (01) ==
LOC: HO.LAB 15:19
PROVIDERS: Visit Provider Family Medicine
DX: Z11.52 Encounter for screening for COVID-19 (principal); Z20.822 Contact with and (suspected) exposure to COVID-19; R09.89 Other specified symptoms and signs involving the circulatory and respiratory systems
CPT/HCPCS: 0241U

== ENCOUNTER 2023-10-01 13:33 | Outpatient (AMB) | payer OTHER, SELFPAY ==
--- NOTE | 2023-10-01 14:00 | MHC.OFFVIS ---
Intake Vital Signs 10/01/23 14:10 Height 5 ft 2 in Weight 182 lb BMI 33.3 Intake Visit Reasons: ileostomy in place, bulge and discomfort Intake Note: This patient presents for question of parastomal hernia, bulge and discomfort. Patient c/o; reports parastomal bulge, reports last night episode of LLQ sharp pain but feels better today, reports took po meds and noticed they where whole in the ostomy bag. Paint Tinter Required: No Accompanied by: Self / Same As Patient Allergies omeprazole [OMEPRAZOLE] Allergy (Severe, Verified 10/01/23 14:12) N/V tramadol [From Ultram] Allergy (Intermediate, Verified 10/01/23 14:12) ITCHING ibuprofen [From Motrin] Allergy (Verified 10/01/23 14:12) Unknown Medication List - Last Reconciled 10/02/23 by Deandre Hagan MD amoxicillin 500 mg PO Q12H 10 days amoxicillin-pot clavulanate 500-125 mg (Augmentin) 1 tab PO TID 7 days cholecalciferol (vitamin D3) 25 mcg PO DAILY duloxetine 20 mg PO BID 30 days erythromycin 0.5 inches ophthalmic (eye) TID 7 days fluconazole 150 mg PO Q3D 2 doses fremanezumab-vfrm (Ajovy Syringe) 225 mg subcut Q30D loratadine (Claritin) 10 mg PO DAILY magnesium oxide 800 mg (2 x 400 mg (241.3 mg magnesium)) PO BIDPC methocarbamol 750 mg PO TID jystddey-mnh-mhey-FA-vit K-lut 8 mg iron-400 mcg-50 mcg (Centrum Silver Women) 1 tab PO DAILY ondansetron 1 tab PO DAILY PRN pantoprazole 40 mg PO DAILY rizatriptan 1 tab PO DAILY PRN HPI ileostomy in place, bulge and discomfort HPI Details She is here for follow-up after emergency subtotal colectomy and 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 She has been gaining weight. She has been feeling well but she has noticed a parastomal hernia. She describes some pain with this. Her stoma has been working well otherwise. She has good oral intake. [facility] Medical History (Updated 10/02/23 @ 14:26 by Deandre Hagan MD) Parastomal hernia Subcutaneous abscess Seborrheic dermatitis Migraines Fatty liver disease, nonalcoholic Sinusitis Ileostomy in place Dizziness Recurrent vomiting Gastroparesis Intra-abdominal abscess Intra-abdominal abscess Fever of unknown origin Leukocytosis Shock Perforated viscus COVID-19 vaccine series completed Environmental allergies PONV (postoperative nausea and vomiting) Thoracic disc herniation Herniated cervical disc Back pain Fibromyalgia Hx of migraines Crohn's disease Iron deficiency anemia Carpal tunnel syndrome Arthritis Vitamin D deficiency GERD (gastroesophageal reflux disease) Surgical History S/P colectomy Status post colostomy Hx of shoulder surgery History of surgery Hx of fusion of cervical spine Hx of cholecystectomy History of tonsillectomy History of esophagogastroduodenoscopy (EGD) History of tubal ligation Hx of colonoscopy Family History Paternal Grandmother High blood pressure High cholesterol Mother Throat cancer Alcoholism Maternal Grandmother Breast cancer Paternal Grandfather Prostate cancer Family/Other High blood pressure Social History Household Members: Spouse and Family Household Members Other:: Stepson Housing: House Are you a primary home health caregiver to a significant other at home: No Do you presently have visiting nurse or other home services: Yes Unable to assess alcohol history related to: Unknown Alcohol intake: never Comment: restraints Patient Tobacco Use Status: Former Tobacco user Quit Date: 23 years ago Tobacco use type: Cigarette e-Cigarette/Vaping Use: Never Used Second Hand Smoke Exposure: No Advance Directives Date on File: 06/23/20 service: No Current occupational status: employed 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 @ [employer] Cognitive needs: No Hearing needs: No Vision needs: No Review of Systems Const Denies chills and Denies fever(s) Card Denies chest pain, Denies dyspnea and Denies dyspnea on exertion Resp Denies cough, Denies dyspnea and Denies dyspnea on exertion GI Details: Has ileostomy Denies hematochezia and Denies change in bowel habits Denies hematuria Musc Denies back pain and Denies limited range of motion Neuro Denies focal weakness and Denies convulsions Psych Denies depression and Denies mood swings Physical Exam Vital Signs: BMI result Body Mass Index 33.3 Const General: comfortable and no acute distress Resp Effort & Inspection: normal respiratory effort GI Other: Parastomal hernia, nontender, ileostomy functioning well Palpation (GI): Soft to palpation, not firm and nontender Assessment & Plan Assessment & Plan (1) Parastomal hernia: Code(s): K43.5 - Parastomal hernia without obstruction or gangrene Plan: She has an ileostomy and now has a parastomal hernia. This actually is reducible. However, she admits to this being symptomatic. I explained to her that repair of this will require surgery with possible mesh placement. I did explain to her that says of repair will be higher with a lower BMI for her as she has now developed a large pannus with weight gain She plans to lose weight again time and will see her again in the office in about 1-2 months. We will monitor her parastomal hernia down the line. Her ileostomy is otherwise functioning well. Coding Level of Care Code Est Pt Level 3 (90694) Diagnoses Parastomal hernia K43.5
[2023-10-01 14:10] VITALS: BMI 33.3
== END 2023-10-01 14:31 | disposition home or self-care (01) ==
PROVIDERS: PCP Family Medicine; Visit Provider Surgery
DX: K43.5 Parastomal hernia without obstruction or gangrene (principal)
CPT/HCPCS: 99213

== ENCOUNTER → 2023-10-01 13:33 | Outpatient (BNVA) | payer OTHER, SELFPAY | PROVIDERS: PCP Family Medicine; Visit Provider Surgery ==

== ENCOUNTER 2023-11-15 08:52 | Outpatient (AMB) | payer OTHER, SELFPAY ==
--- NOTE | 2023-11-15 09:06 | A.OFFVIS_ITS ---
Intake Vital Signs 11/15/23 09:19 Height 5 ft 2 in Weight 180 lb BMI 32.9 BP 147/70 H Blood Pressure Location Lt brachial Position Sitting Pulse 74 Intake Visit Reasons: 6 month follow up ostomy Intake Note: This patient presents for a six month follow-up assessment for ostomy check. Pt c/o; reports intermittent squeezing sensation in the rectum which can last for 30 minutes. 11/02/22: Abd/pelvis Ct Still Worker Helper Required: No Accompanied by: Self / Same As Patient Allergies omeprazole [OMEPRAZOLE] Allergy (Severe, Verified 11/15/23 09:21) N/V tramadol [From Ultram] Allergy (Intermediate, Verified 11/15/23 09:21) ITCHING ibuprofen [From Motrin] Allergy (Verified 11/15/23 09:21) Unknown Medication List - Last Reconciled 11/15/23 by Deandre Hagan MD amoxicillin 500 mg PO Q12H 10 days amoxicillin-pot clavulanate 500-125 mg (Augmentin) 1 tab PO TID 7 days cholecalciferol (vitamin D3) 25 mcg PO DAILY duloxetine 20 mg PO BID 30 days erythromycin 0.5 inches ophthalmic (eye) TID 7 days fluconazole 150 mg PO Q3D 2 doses fremanezumab-vfrm (Ajovy Syringe) 225 mg subcut Q30D loratadine (Claritin) 10 mg PO DAILY magnesium oxide 800 mg (2 x 400 mg (241.3 mg magnesium)) PO BIDPC methocarbamol 750 mg PO TID jhiwfgns-dlr-jtcp-FA-vit K-lut 8 mg iron-400 mcg-50 mcg (Centrum Silver Women) 1 tab PO DAILY ondansetron 1 tab PO DAILY PRN pantoprazole 40 mg PO DAILY rizatriptan 1 tab PO DAILY PRN HPI 6 month follow up ostomy HPI Details She is here for follow-up for parastomal hernia. She says that this hernia bulges out periodically. She denies any severe pain. Her stoma continues to function well. She denies any new complaints. She has good oral intake. [facility] Medical History Parastomal hernia Subcutaneous abscess Seborrheic dermatitis Migraines Fatty liver disease, nonalcoholic Sinusitis Ileostomy in place Dizziness Recurrent vomiting Gastroparesis Intra-abdominal abscess Intra-abdominal abscess Fever of unknown origin Leukocytosis Shock Perforated viscus COVID-19 vaccine series completed Environmental allergies PONV (postoperative nausea and vomiting) Thoracic disc herniation Herniated cervical disc Back pain Fibromyalgia Hx of migraines Crohn's disease Iron deficiency anemia Carpal tunnel syndrome Arthritis Vitamin D deficiency GERD (gastroesophageal reflux disease) Surgical History S/P colectomy Status post colostomy Hx of shoulder surgery History of surgery Hx of fusion of cervical spine Hx of cholecystectomy History of tonsillectomy History of esophagogastroduodenoscopy (EGD) History of tubal ligation Hx of colonoscopy Family History Paternal Grandmother High blood pressure High cholesterol Mother Throat cancer Alcoholism Maternal Grandmother Breast cancer Paternal Grandfather Prostate cancer Family/Other High blood pressure Social History Household Members: Spouse and Family Household Members Other:: Stepson Housing: House Are you a primary career law clerk to a significant other at home: No Do you presently have visiting nurse or other home services: Yes Unable to assess alcohol history related to: Unknown Alcohol intake: never Comment: restraints Patient Tobacco Use Status: Former Tobacco user Quit Date: 23 years ago Tobacco use type: Cigarette e-Cigarette/Vaping Use: Never Used Second Hand Smoke Exposure: No Advance Directives Date on File: 06/23/20 service: No Current occupational status: employed 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 @ [employer] Cognitive needs: No Hearing needs: No Vision needs: No Review of Systems Const Denies chills and Denies fever(s) Card Denies chest pain, Denies dyspnea and Denies dyspnea on exertion Resp Denies cough, Denies dyspnea and Denies dyspnea on exertion GI Details: Ileostomy functioning well Denies hematochezia and Denies change in bowel habits Denies hematuria Musc Denies back pain and Denies limited range of motion Neuro Denies focal weakness and Denies convulsions Psych Denies depression and Denies mood swings Physical Exam Const General: comfortable and no acute distress Orientation/consciousness: patient oriented x3 Neck Neck: Yes no lymphadenopathy Resp Auscultation: clear to auscultation bilaterally Cardio Rhythm: regular rhythm GI Other: Has ileostomy on the right side, parastomal hernia obvious with Valsalva Palpation (GI): Soft to palpation, nontender and no guarding Neuro General: patient oriented x3 Assessment & Plan Assessment & Plan (1) Parastomal hernia: Code(s): K43.5 - Parastomal hernia without obstruction or gangrene Plan: She does have discomfort and pain periodically with a parastomal hernia. She is contributing on having this repaired. I will order for a CAT scan. I have instructed her to lose some weight as well decrease her perioperative risks with the repair. She says she is planning to do this with a lot of walking and will see me in the office in about 2 months. She is doing very well overall. She says she is supposed to go on a cruise with her Coding Level of Care Code Est Pt Level 3 (30878) Diagnoses Parastomal hernia K43.5
[2023-11-15 09:19] VITALS: BP 147/70; PULSE 74; BMI 32.9
== END 2023-11-15 09:28 | disposition home or self-care (01) ==
PROVIDERS: PCP Family Medicine; Visit Provider Surgery
DX: K43.5 Parastomal hernia without obstruction or gangrene (principal)
CPT/HCPCS: 99213

== ENCOUNTER → 2023-11-15 08:52 | Outpatient (BNVA) | payer OTHER, SELFPAY | PROVIDERS: PCP Family Medicine; Visit Provider Surgery ==

== ENCOUNTER 2023-11-18 17:08 | Inpatient (IN) | payer OTHER, SELFPAY ==
--- NOTE | ~2023-11-18 | XR_ITS ---
EXAMINATION: XR ABDOMEN KUB CLINICAL INDICATION: Nausea and vomiting COMPARISON: CT scan abdomen pelvis November 02, 2022 TECHNIQUE: AP view of the abdomen. FINDINGS: Surgical clips and sutures in the abdomen and pelvis. Ostomy device over the right lower quadrant. The bowel gas pattern is normal with no evidence of ileus or obstruction. No dilated bowel loop. No significant formed stool. No unusual soft tissue calcifications are noted. The bones are unremarkable. XR/XR KUB IMPRESSION: No acute abnormality of the abdomen. Nonobstructive bowel pattern.
[2023-11-18 17:15] VITALS: BP 111/69; PULSE 125; RESP 18; TEMP 36.6; O2SAT 93; BMI 31.9
--- NOTE | 2023-11-18 17:20 | ED.NAVMDI ---
HPI - Nausea/Vomiting/Diarrhea General Chief complaint: Nausea/Vomiting/Diarrhea Stated complaint: body aches/vomiting Time Seen by Provider: 11/18/23 19:14 Source: patient Mode of arrival: ambulatory Limitations: no limitations History of Present Illness HPI Narrative: Patient is a 63-year-old female with history of Crohn's disease and C diff toxic megacolon with perforated sigmoid colon status post colectomy with stoma 08/01, parastomal hernia, gastroparesis, fibromyalgia, GERD presenting to the emergency department with complaint nausea, vomiting, and liquid stool from stoma since yesterday. Also reports low-grade fever with T-max of 100.5?. States that her grandchildren and daughter were recently sick with similar symptoms and she has been around them. Reports mild epigastric pain. Related Data Home Medications Medication Instructions Recorded Confirmed methocarbamol 750 mg tablet 750 mg PO TID 10/21/20 11/15/23 ondansetron 8 mg disintegrating 1 tab PO DAILY PRN Nausea 05/18/22 11/15/23 tablet rizatriptan 10 mg tablet 1 tab PO DAILY PRN Migraine 05/18/22 11/15/23 Headache fremanezumab-vfrm 225 mg/1.5 mL 225 mg subcut Q30D 08/05/22 11/15/23 subcutaneous syringe (Ajovy Syringe) [id number]-[id number] 8 mg-folic 400 1 tab PO DAILY 02/02/23 11/15/23 mcg-K 50 mcg-lutein 300 mcg tablet (Centrum Silver Women) cholecalciferol (vitamin D3) 25 25 mcg PO DAILY 05/16/23 11/15/23 mcg (1,000 unit) capsule loratadine 10 mg tablet (Claritin) 10 mg PO DAILY 09/11/23 11/15/23 pantoprazole 40 mg tablet,delayed 40 mg PO DAILY 09/11/23 11/15/23 release Previous Rx's Medication Instructions Recorded magnesium oxide 400 mg (241.3 mg 800 mg (2 x 400 mg (241.3 mg 10/30/22 magnesium) tablet magnesium)) PO BIDPC #120 tabs amoxicillin 500 mg-potassium 1 tab PO TID 7 days #21 tabs 09/11/23 clavulanate 125 mg tablet (Augmentin) erythromycin 5 mg/gram (0.5 %) eye 0.5 inch ophthalmic (eye) TID 7 09/11/23 ointment days #3.5 grams amoxicillin 500 mg tablet 500 mg PO Q12H 10 days #20 tabs 09/26/23 fluconazole 150 mg tablet 150 mg PO Q3D 2 doses #2 tabs 09/26/23 duloxetine 20 mg capsule,delayed 20 mg PO BID 30 days #60 caps 11/14/23 release Allergies Allergy/AdvReac Type Severity Reaction Status Date / Time omeprazole [OMEPRAZOLE] Allergy Severe N/V Verified 11/15/23 09:21 tramadol [From Ultram] Allergy Intermediate ITCHING Verified 11/15/23 09:21 ibuprofen [From Motrin] Allergy Unknown Verified 11/15/23 09:21 Review of Systems Review of Systems: Yes all other systems are reviewed and are negative Constitutional: Constitutional: Reports as per [facility] Past Medical History Medical History Parastomal hernia Subcutaneous abscess Seborrheic dermatitis Migraines Fatty liver disease, nonalcoholic Sinusitis Ileostomy in place Dizziness Recurrent vomiting Gastroparesis Intra-abdominal abscess Intra-abdominal abscess Fever of unknown origin Leukocytosis Shock Perforated viscus COVID-19 vaccine series completed Environmental allergies PONV (postoperative nausea and vomiting) Thoracic disc herniation Herniated cervical disc Back pain Fibromyalgia Hx of migraines Crohn's disease Iron deficiency anemia Carpal tunnel syndrome Arthritis Vitamin D deficiency GERD (gastroesophageal reflux disease) Surgical History S/P colectomy Status post colostomy Hx of shoulder surgery History of surgery Hx of fusion of cervical spine Hx of cholecystectomy History of tonsillectomy History of esophagogastroduodenoscopy (EGD) History of tubal ligation Hx of colonoscopy Family History Family History Paternal Grandmother High blood pressure High cholesterol Mother Throat cancer Alcoholism Maternal Grandmother Breast cancer Paternal Grandfather Prostate cancer Family/Other High blood pressure Social History Social History Household Members: Spouse and Family Household Members Other:: Stepson Housing: House Are you a primary career coach to a significant other at home: No Do you presently have visiting nurse or other home services: Yes Unable to assess alcohol history related to: Unknown Alcohol intake: former Comment: restraints Patient Tobacco Use Status: Former Tobacco user Quit Date: 23 years ago Tobacco use type: Cigarette Smoked in Last 30 Days: No e-Cigarette/Vaping Use: Never Used Second Hand Smoke Exposure: No Use of substances other than those prescribed or required for medical reasons: No Advance Directives: Yes Advance Directives on File: Yes Advance Directives Date on File: 08/08/22 service: No Current occupational status: employed 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 Blood pressure normal. Heart rate tachycardic. Respiratory rate normal. Temperature normal. Oxygen saturation low. Const: General: cooperative, healthy appearing and no acute distress Orientation/consciousness: oriented to person, oriented to place, oriented to time and patient oriented x3 Limitations: no limitations HEENT: Head: Yes normocephalic and Yes atraumatic Ears: external ears normal General nose exam: Normal external nose present Face and sinus: Yes face symmetric Mouth: oropharynx normal and moist mucous membranes Throat: Yes uvula midline Eyes: Pupils: Equal, round and reactive pupils present Neck: Neck: Yes normal visual inspection and Yes supple Resp: Effort & Inspection: normal respiratory effort and able to speak in complete sentences Auscultation: clear to auscultation bilaterally Cardio: Rate: regular rate Rhythm: regular rhythm Heart sounds: S1 normal heart sound present and S2 normal heart sound present GI: Inspection: Yes other (ostomy to R abd, clear green fluid noted in ostomy bag) Palpation (GI): Soft to palpation, Tenderness to palpation present (GI) in the epigastrum and Hernia present other (peristomal) Auscultation: normoactive bowel sounds : General: Yes no CVA tenderness Back/Spine/Pelvis: Back: no CVA tenderness Skin: General skin exam: elasticity normal and turgor normal Neuro: General: oriented to person, oriented to place, oriented to time, patient oriented x3, moves all extremities, no focal motor deficits and CN's II-XI intact bilaterally Cranial nerves: Yes Equal, round and reactive pupils present Cognition (Neuro): normal cognition Extrem: General: Yes full ROM, Yes no pedal edema and Yes no calf tenderness Psych: Mental Status: mental status grossly normal Affect: normal affect Thought process: Normal thought process present Course Course Course Narrative: This is a rapid medical exam. deferred additional HPI, ROS, PE to primary provider. 63 yo female with history of Crohn's disease multiple abdominal surgeries status post subtotal colectomy with end ileostomy 08/01 here with complaints of nausea and vomiting yesterday now increased output from ileostomy with concern for dehydration. Will obtain labs +tachycardic in triage Seen by Dr Hagan in triage. Concerned patient may be dehydrated. No need for CT abdomen imaging. May need admission to hospitalist service. Medications Administered Discontinued Medications Generic Name Dose Route Start Last Admin Trade Name Freq PRN Reason Stop Dose Admin Sodium Chloride 1,000 mls @ 999 mls/hr 11/18/23 19:15 11/18/23 20:06 Ns IV 11/18/23 20:15 999 mls/hr .Q1H1M GAUDENCIO Administration Ketorolac Tromethamine 15 mg 11/18/23 19:29 11/18/23 20:06 Ketorolac Tromethamine 15 Mg/Ml Vial IVPUSH 11/18/23 19:30 15 mg ONCE ONE Administration Ondansetron HCl 4 mg 11/18/23 19:49 11/18/23 20:06 Ondansetron Hcl 4 Mg/2 Ml Vial IVPUSH 11/18/23 19:50 4 mg ONCE ONE Administration Medical Decision Making Medical Decision Making [facility] Narrative: Patient is a 63-year-old female with history of Crohn's disease and C diff toxic megacolon with perforated sigmoid colon status post colectomy with stoma 08/01, parastomal hernia, gastroparesis, fibromyalgia, GERD presenting to the emergency department with complaint nausea, vomiting, and liquid stool from stoma since yesterday. On exam patient is awake, A+Ox3, tachycardic, hypoxic, O2 ordered, VS otherwise WNL, afebrile, normal neurological exam without focal deficits, physical exam findings as above. Given reported symptoms and physical exam findings, initial differential includes gastroenteritis, dehydration, SABINE, obstruction. Do not suspect ACS/NC. Patient seen by Dr. Hagan in triage, who is familiar with patient. He feels imaging is not indicated, likely viral gastroenteritis given multiple sick family members with same symptoms. Labs notable for mild leukocytosis, SABINE, chronically elevated LFTs. X-ray notable for . My interpretation is in agreement with the radiologist's interpretation. Case discussed with Dr. Connelly who accepts admission, requesting CT scan. Plan: IV fluids, antiemetics, admission for SABINE Differential Diagnosis Differential Diagnoses: The differential diagnosis associated with the presentation includes As per [facility] Admission/Observation Consideration of admission/observation: Escalation of care including admission/observation considered Consult Healthcare Provider Management of the patient was discussed with: Hospitalist (Godwin) Lab Data [facility] Lab Attestation statement: I reviewed the patient's lab results. As per [facility] 11/18/23 17:32 11/18/23 17:32 Labs: Lab Results 11/18/23 11/18/23 Range/Units 17:32 17:58 WBC 11.6 H (4.8-10.8) X10*3/uL RBC 5.77 H D (4.20-5.50) X10*6/uL Hgb 17.9 H D (12.0-16.0) g/dl Hct 51.1 H D (37.0-47.0) % MCV 88.6 (80.0-98.0) fL MCH 31.0 (27.0-33.0) pg MCHC 35.0 (31.0-35.0) g/dl RDW 12.3 (11.0-16.0) % Plt Count 294 (160-400) X10*3/uL MPV 10.5 (9.4-12.3) fL Immature Gran % (Auto) 0.3 (0.0-0.4) % Neut % (Auto) 60.7 (45-73) % Lymph % (Auto) 29.5 (20-40) % Grady % (Auto) 9.1 (2-11) % Eos % (Auto) 0.1 (0-4) % Baso % (Auto) 0.3 (0-2) % Lymph # (Auto) 3.4 (1.2-4.9) X10*3/uL Grady # (Auto) 1.1 (0.1-1.2) X10*3/uL Eos # (Auto) 0.0 (0.0-0.4) X10*3/uL Baso # (Auto) 0.0 (0.0-0.2) X10*3/uL Abs Immat Gran (auto) 0.03 (0.00-0.03) X10*3/uL Absolute Neuts (auto) 7.0 (2.0-8.3) x10*3/uL Absolute Nucleated RBC 0.000 (0.0-0.012) X10*3/uL Nucleated RBC % (auto) 0.0 (0.0-0.2) /100WBC Sodium 136 (135-145) mmol/L Potassium 3.7 (3.3-5.1) mmol/L Chloride 94 L (96-108) mmol/L Carbon Dioxide 24 (22-29) mmol/L Anion Gap 22 H (12-20) BUN 44 H (9-16) mg/dL Creatinine 2.70 H (0.5-1.4) mg/dL Estim Creat Clear Calc 21.8 Estimated GFR 18 Random Glucose 160 H (60-115) mg/dL Calcium 10.4 H D (8.4-10.2) mg/dL Magnesium 2.5 (1.6-2.6) mg/dL Total Bilirubin 0.7 (0.0-1.0) mg/dL Direct Bilirubin 0.3 (0.0-0.5) mg/dL AST 78 H (5-31) U/L ALT 126 H (0-31) U/L Alkaline Phosphatase 203 H (39-117) U/L Total Protein 9.5 H (6.5-8.0) g/dL Albumin 5.1 H (3.5-5.0) g/dL C. difficile Tox B Gene NEGATIVE (Negative) Influenza Type A (PCR) NEGATIVE (Negative) Influenza Type B (PCR) NEGATIVE (Negative) RSV RNA Qual (PCR) NEGATIVE (Negative) SARS-CoV-2 RNA (RT-PCR) NEGATIVE (Negative) Independent Interpretation I performed an independent interpretation of an: EKG (sinus tachycardia, rate 114bpm, normal NC interval and QTc) External Record Review External record reviewed: Inpatient record, Office record and Outpatient record Discharge Plan Discharge Clinical Impression: Acute kidney injury, Gastroenteritis Patient Disposition: Admitted As Inpatient
[2023-11-18 17:58] LABS: MANUAL DIFF FLAG NO
[2023-11-18 17:59] LABS: Basophils Percent Auto 0.3 % (0-2); Eosinophils Percent Auto 0.1 % (0-4); Hematocrit 51.1 % (37.0-47.0); Hemoglobin 17.9 g/dl (12.0-16.0); Imm Gran Abs Auto 0.03 X10*3/uL (0.00-0.03); Imm Gran Pct Auto 0.3 % (0.0-0.4); Lymphocytes Absolute Auto 3.4 X10*3/uL (1.2-4.9); Lymphocytes Percent Auto 29.5 % (20-40); Mean Corpuscular Volume 88.6 fL (80.0-98.0); Mean Platelet Volume 10.5 fL (9.4-12.3); Monocytes Absolute Auto 1.1 X10*3/uL (0.1-1.2); Monocytes Percent Auto 9.1 % (2-11); Neutrophils Percent Auto 60.7 % (45-73); Platelet Count 294 X10*3/uL (160-400); Red Blood Count 5.77 X10*6/uL (4.20-5.50); Red Cell Distribution Width 12.3 % (11.0-16.0); White Blood Count 11.6 X10*3/uL (4.8-10.8)
--- NOTE | 2023-11-18 18:13 | PC.NURSE ---
After collecting c diff and GI panel patient stating that she uses a product to prevent bag from smelling. Lab called to notify , alvaro in lab stating GI panel will not be run until the morning but she will leave a note for AM shift.
[2023-11-18 18:23] LABS: Alanine Aminotransferase 126 U/L (0-31); Albumin Level 5.1 g/dL (3.5-5.0); Alkaline Phosphatase 203 U/L (39-117); Anion Gap 22 (12-20); Aspartate Amino Transferase 78 U/L (5-31); Bilirubin Direct 0.3 mg/dL (0.0-0.5); Bilirubin Total 0.7 mg/dL (0.0-1.0); Blood Urea Nitrogen 44 mg/dL (9-16); Calcium 10.4 mg/dL (8.4-10.2); Carbon Dioxide 24 mmol/L (22-29); Chloride 94 mmol/L (96-108); Creatinine Clr Calc Pharmacy 21.8; Estimated Glomerular Filt Rate 18; Glucose Random 160 mg/dL (60-115); Magnesium 2.5 mg/dL (1.6-2.6); Potassium 3.7 mmol/L (3.3-5.1); Sodium 136 mmol/L (135-145); Total Protein 9.5 g/dL (6.5-8.0)
[2023-11-18 18:28] VITALS: BP 117/63; PULSE 118; RESP 18; TEMP 36.6; O2SAT 98
--- NOTE | 2023-11-18 18:31 | PC.NURSE ---
Patient reports vomited bile on Sunday and Sunday and has felt nauseous since. Reports has been emptying illiostomy bag more frequently than usual. Reports contents of bag are more liquid than normal and are a green color. Reports cramping in abdomen
[2023-11-18 18:36] LABS: Influenza A PCR NEGATIVE (Negative); Influenza B PCR NEGATIVE (Negative); Resp Syncy Virus RNA Qual PCR NEGATIVE (Negative); SARS COV2 PCR INHOUSE NEGATIVE (Negative)
[2023-11-18 18:53] LABS: CDiff Gene PCR NEGATIVE (Negative)
--- NOTE | 2023-11-18 19:16 | PC.NURSE ---
This RN assumed pt care @ 1900. Pt ca&ox4, no signs of acute distress. Pt resting in bed comfortably watching tv. Pts family at bedside. Plan of care ongoing.
--- NOTE | 2023-11-18 19:21 | ECG_ITS ---
Test Reason : tachycardia Blood Pressure : / mmHG Vent. Rate : 114 BPM Atrial Rate : 114 BPM P-R Int : 142 ms QRS Dur : 068 ms QT Int : 332 ms P-R-T Axes : 049 078 060 degrees QTc Int : 457 ms Sinus tachycardia Possible Left atrial enlargement Borderline ECG When compared with ECG of 26-OCT-2022 11:54, No significant change was found Referred By: Mirlande Lozano Electronically Signed By:ALLEN VASQUEZ MD
[2023-11-18 19:22] VITALS: BP 127/75; PULSE 110; RESP 16; TEMP 36.7; O2SAT 92
--- NOTE | 2023-11-18 19:31 | ED.NAVMDI ---
HPI - Nausea/Vomiting/Diarrhea General Chief complaint: Nausea/Vomiting/Diarrhea Stated complaint: body aches/vomiting Time Seen by Provider: 11/18/23 19:14 Source: patient Mode of arrival: ambulatory Limitations: no limitations History of Present Illness HPI Narrative: Patient is a 63-year-old female with history of Crohn's disease and C diff toxic megacolon with perforated sigmoid colon status post colectomy with stoma 08/01, parastomal hernia, gastroparesis, fibromyalgia, GERD presenting to the emergency department with complaint nausea, vomiting, and liquid stool from stoma since yesterday. Also reports low-grade fever with T-max of 100.5?. States that her grandchildren and daughter were recently sick with similar symptoms and she has been around them. Reports mild epigastric pain. Related Data Home Medications Medication Instructions Recorded Confirmed methocarbamol 750 mg tablet 750 mg PO TID 10/21/20 11/19/23 ondansetron 8 mg disintegrating 1 tab PO DAILY PRN Nausea 05/18/22 11/19/23 tablet rizatriptan 10 mg tablet 1 tab PO DAILY PRN Migraine 05/18/22 11/19/23 Headache fremanezumab-vfrm 225 mg/1.5 mL 225 mg subcut Q30D 08/05/22 11/19/23 subcutaneous syringe (Ajovy Syringe) uhcohotx-fize-vbne 8 mg-folic 400 1 tab PO DAILY 02/02/23 11/19/23 mcg-K 50 mcg-lutein 300 mcg tablet (Centrum Silver Women) cholecalciferol (vitamin D3) 25 25 mcg PO DAILY 05/16/23 11/19/23 mcg (1,000 unit) capsule loratadine 10 mg tablet (Claritin) 10 mg PO DAILY 09/11/23 11/19/23 pantoprazole 40 mg tablet,delayed 40 mg PO DAILY 09/11/23 11/19/23 release magnesium oxide 400 mg (241.3 mg 800 mg PO BIDPC 11/19/23 11/19/23 magnesium) tablet Previous Rx's Medication Instructions Recorded duloxetine 20 mg capsule,delayed 20 mg PO BID 30 days #60 caps 11/14/23 release Allergies Allergy/AdvReac Type Severity Reaction Status Date / Time omeprazole [OMEPRAZOLE] Allergy Severe N/V Verified 11/15/23 09:21 tramadol [From Ultram] Allergy Intermediate ITCHING Verified 11/15/23 09:21 ibuprofen [From Motrin] Allergy Unknown Verified 11/15/23 09:21 [facility] Past Medical History Medical History Parastomal hernia Subcutaneous abscess Seborrheic dermatitis Migraines Fatty liver disease, nonalcoholic Sinusitis Ileostomy in place Dizziness Recurrent vomiting Gastroparesis Intra-abdominal abscess Intra-abdominal abscess Fever of unknown origin Leukocytosis Shock Perforated viscus COVID-19 vaccine series completed Environmental allergies PONV (postoperative nausea and vomiting) Thoracic disc herniation Herniated cervical disc Back pain Fibromyalgia Hx of migraines Crohn's disease Iron deficiency anemia Carpal tunnel syndrome Arthritis Vitamin D deficiency GERD (gastroesophageal reflux disease) Surgical History S/P colectomy Status post colostomy Hx of shoulder surgery History of surgery Hx of fusion of cervical spine Hx of cholecystectomy History of tonsillectomy History of esophagogastroduodenoscopy (EGD) History of tubal ligation Hx of colonoscopy Family History Family History Paternal Grandmother High blood pressure High cholesterol Mother Throat cancer Alcoholism Maternal Grandmother Breast cancer Paternal Grandfather Prostate cancer Family/Other High blood pressure Social History Social History Household Members: Spouse and Family Household Members Other:: Stepson Housing: House Are you a primary direct care supervisor to a significant other at home: No Do you presently have visiting nurse or other home services: No Unable to assess alcohol history related to: Unknown Alcohol intake: former Comment: restraints Patient Tobacco Use Status: Former Tobacco user Quit Date: 23 years ago Tobacco use type: Cigarette e-Cigarette/Vaping Use: Never Used Second Hand Smoke Exposure: No Advance Directives Date on File: 08/08/22 service: No Current occupational status: employed 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 @ [employer] Cognitive needs: No Hearing needs: No Vision needs: No Physical Exam Vital Signs: Vital Signs: Last Vital Signs Temp 96.9 F 11/21/23 07:34 Pulse 77 11/21/23 07:34 Resp 18 11/21/23 07:34 BP 120/60 11/21/23 07:34 Pulse Ox 96 11/21/23 07:34 O2 Del Method Room Air 11/21/23 07:34 BMI result Body Mass Index 31.9 Medications Administered Discontinued Medications Generic Name Dose Route Start Last Admin Trade Name Ami PRN Reason Stop Dose Admin Duloxetine HCl 20 mg 11/19/23 21:00 11/21/23 07:38 Duloxetine Hcl 20 Mg Capsule.Dr PO 20 mg BID GAUDENCIO Administration Enoxaparin Sodium 40 mg 11/20/23 12:30 11/21/23 11:47 Enoxaparin Sodium 40 Mg/0.4 Ml Syringe SUBCUT Not Given Q24H GAUDENCIO Sodium Chloride 1,000 mls @ 999 mls/hr 11/18/23 19:15 11/19/23 01:41 Ns IV 11/18/23 20:15 Infused .Q1H1M GAUDENCIO Infusion Sodium Chloride 1,000 mls @ 999 mls/hr 11/18/23 20:45 11/19/23 01:41 Ns IV 11/18/23 21:45 Infused .Q1H1M GAUDENCIO Infusion Sodium Chloride 1,000 mls @ 100 mls/hr 11/18/23 21:45 11/21/23 05:49 Ns IVCONT Infused .Q10H GAUDENCIO Infusion Ketorolac Tromethamine 15 mg 11/18/23 19:29 11/18/23 20:06 Ketorolac Tromethamine 15 Mg/Ml Vial IVPUSH 11/18/23 19:30 15 mg ONCE ONE Administration Loratadine 10 mg 11/20/23 09:00 11/21/23 07:38 Loratadine 10 Mg Tablet PO 10 mg DAILY GAUDENCIO Administration Magnesium Oxide 600 mg 11/19/23 09:00 11/19/23 08:09 Magnesium Oxide 400 Mg Tablet PO 600 mg DAILY GAUDENCIO Administration Magnesium Oxide 800 mg 11/19/23 17:30 11/21/23 07:37 Magnesium Oxide 400 Mg Tablet PO 800 mg BIDPC GAUDENCIO Administration Methocarbamol 750 mg 11/19/23 09:00 11/19/23 14:37 Methocarbamol 750 Mg Tablet PO 750 mg TID GAUDENCIO Administration Methocarbamol 750 mg 11/19/23 21:00 11/21/23 07:38 Methocarbamol 750 Mg Tablet PO 750 mg TID GAUDENCIO Administration Morphine Sulfate 3 mg 11/18/23 21:32 11/18/23 21:46 Morphine Sulfate 4 Mg/Ml Cartridge IVPUSH 11/18/23 21:33 3 mg ONCE STA Administration Protocol Morphine Sulfate 2 mg 11/19/23 01:00 11/21/23 03:24 Morphine Sulfate 2 Mg/Ml Cartridge IVPUSH 2 mg Q3H PRN Administration Pain, Severe (Pain Scale 7-10) Protocol Multivitamins/Vitamin C 1 tab 11/20/23 09:00 11/21/23 07:38 Multivitamin Tablet PO 1 tab DAILY GAUDENCIO Administration Ondansetron HCl 4 mg 11/18/23 19:49 11/18/23 20:06 Ondansetron Hcl 4 Mg/2 Ml Vial IVPUSH 11/18/23 19:50 4 mg ONCE ONE Administration Ondansetron HCl 4 mg 11/19/23 16:07 11/21/23 03:30 Ondansetron Hcl 4 Mg/2 Ml Vial IVPUSH 4 mg Q6H PRN Administration Nausea and Vomiting Pantoprazole Sodium 40 mg 11/18/23 21:35 11/18/23 22:22 Pantoprazole Sodium 40 Mg/10 Ml Vial IVPUSH 11/18/23 21:36 40 mg ONCE STA Administration Pantoprazole Sodium 40 mg 11/18/23 21:55 11/18/23 22:28 Pantoprazole Sodium 40 Mg/10 Ml Vial IVPUSH Not Given DAILY GAUDENCIO Pantoprazole Sodium 40 mg 11/19/23 09:00 11/21/23 07:38 Pantoprazole Sodium 40 Mg/10 Ml Vial IVPUSH 40 mg DAILY GAUDENCIO Administration Potassium Chloride 20 meq 11/19/23 09:53 11/19/23 10:45 Potassium Chloride Packet 20 Meq Packet PO 11/19/23 09:54 20 meq ONCE ONE Administration Simethicone 160 mg 11/18/23 21:32 11/18/23 21:47 Simethicone 80 Mg Tab.Chew PO 11/18/23 21:33 160 mg ONCE STA Administration Sodium Chloride 3 ml 11/19/23 00:00 11/21/23 07:38 0.9 % Sodium Chloride Flush 3 Ml Syringe IVFLUSH Not Given QSHIFT GAUDENCIO Vitamin D 25 mcg 11/20/23 09:00 11/21/23 07:38 Cholecalciferol (Vitamin D3) 25 Mcg Tablet PO 25 mcg DAILY GAUDENCIO Administration Medical Decision Making Lab Data 11/20/23 05:53 11/20/23 05:53 Labs: Lab Results 11/18/23 11/18/23 Range/Units 17:32 17:58 WBC 11.6 H (4.8-10.8) X10*3/uL RBC 5.77 H D (4.20-5.50) X10*6/uL Hgb 17.9 H D (12.0-16.0) g/dl Hct 51.1 H D (37.0-47.0) % MCV 88.6 (80.0-98.0) fL MCH 31.0 (27.0-33.0) pg MCHC 35.0 (31.0-35.0) g/dl RDW 12.3 (11.0-16.0) % Plt Count 294 (160-400) X10*3/uL MPV 10.5 (9.4-12.3) fL Immature Gran % (Auto) 0.3 (0.0-0.4) % Neut % (Auto) 60.7 (45-73) % Lymph % (Auto) 29.5 (20-40) % Hudson % (Auto) 9.1 (2-11) % Eos % (Auto) 0.1 (0-4) % Baso % (Auto) 0.3 (0-2) % Lymph # (Auto) 3.4 (1.2-4.9) X10*3/uL Hudson # (Auto) 1.1 (0.1-1.2) X10*3/uL Eos # (Auto) 0.0 (0.0-0.4) X10*3/uL Baso # (Auto) 0.0 (0.0-0.2) X10*3/uL Abs Immat Gran (auto) 0.03 (0.00-0.03) X10*3/uL Absolute Neuts (auto) 7.0 (2.0-8.3) x10*3/uL Absolute Nucleated RBC 0.000 (0.0-0.012) X10*3/uL Nucleated RBC % (auto) 0.0 (0.0-0.2) /100WBC Sodium 136 (135-145) mmol/L Potassium 3.7 (3.3-5.1) mmol/L Chloride 94 L (96-108) mmol/L Carbon Dioxide 24 (22-29) mmol/L Anion Gap 22 H (12-20) BUN 44 H (9-16) mg/dL Creatinine 2.70 H (0.5-1.4) mg/dL Estim Creat Clear Calc 21.8 Estimated GFR 18 Random Glucose 160 H (60-115) mg/dL Calcium 10.4 H D (8.4-10.2) mg/dL Magnesium 2.5 (1.6-2.6) mg/dL Total Bilirubin 0.7 (0.0-1.0) mg/dL Direct Bilirubin 0.3 (0.0-0.5) mg/dL AST 78 H (5-31) U/L ALT 126 H (0-31) U/L Alkaline Phosphatase 203 H (39-117) U/L Total Protein 9.5 H (6.5-8.0) g/dL Albumin 5.1 H (3.5-5.0) g/dL Stl C. cayetanensis PCR Not Detected (Not Detect.) Stool Rotavirus A PCR Not Detected (Not Detect.) Stl Adenov F 40/41 PCR Not Detected (Not Detect.) Stool Astrovirus (PCR) Not Detected (Not Detect.) Stool Campylobacter PCR Not Detected (Not Detect.) Stool Cryptosporidium PCR Not Detected (Not Detect.) Stl Sh Tox Pr E STEC PCR Not Detected (Not Detect.) Stool E coli O157 PCR Not applicable (Not Detect.) Stl Enterotoxigenic E PCR Not Detected (Not Detect.) Stool EPEC (PCR) Not Detected (Not Detect.) Stool EAEC (PCR) Not Detected (Not Detect.) Stl E. histolytica PCR Not Detected (Not Detect.) Stool Giardia Lamblia PCR Not Detected (Not Detect.) Stl P. shigelloides PCR Not Detected (Not Detect.) Stool Salmonella PCR Not Detected (Not Detect.) Stool Sapovirus (PCR) Not Detected (Not Detect.) Stl Shigella/EIEC PCR Not Detected (Not Detect.) St Y.enterocolitica PCR Not Detected (Not Detect.) Stool Vibrio (PCR) Not Detected (Not Detect.) Stl Vibrio cholerae PCR Not Detected (Not Detect.) Stl Norovirus GI/GII PCR See Comment (Not Detect.) C. difficile Tox B Gene NEGATIVE (Negative) Influenza Type A (PCR) NEGATIVE (Negative) Influenza Type B (PCR) NEGATIVE (Negative) RSV RNA Qual (PCR) NEGATIVE (Negative) SARS-CoV-2 RNA (RT-PCR) NEGATIVE (Negative) Discharge Plan Discharge Clinical Impression: Acute kidney injury, Gastroenteritis Patient Disposition: Admitted As Inpatient Interventions: Admission Worksheet (ED) Last Done: 11/19/23 00:32 Discharge Date/Time: 11/19/23 01:18
[2023-11-18] MEDS: ondansetron HCL 4 MG/2 ML VIAL IVPUSH (20:06)
[2023-11-18] MEDS: 0.9 % Sodium Chloride 1,000 ML 999 ML IV ×2 (20:06→21:40)
[2023-11-18] MEDS: Ketorolac Tromethamine 15 MG/ML VIAL IVPUSH (20:06)
--- NOTE | 2023-11-18 20:11 | PC.NURSE ---
Pt medicated per nov. Plan of care ongoing.
[2023-11-18] MEDS: Morphine Sulfate 4 MG/ML CARTRIDGE 3 MG IVPUSH (21:46)
[2023-11-18] MEDS: Simethicone 80 MG TAB.CHEW 160 MG PO (21:47)
[2023-11-18 22:06] VITALS: BP 107/71; PULSE 100; RESP 16; TEMP 36.7; O2SAT 93
--- NOTE | 2023-11-18 22:14 | PM.IMHP ---
History of Present Illness Date of Service: 11/18/23 Attending physician on admission: Porsche Cohn Chief Complaint: Abdominal pain Ju Henson is a 63 years old woman with past medical history significant for gastroparesis, Crohn's disease, GERD and s/p subtotal colectomy with end ileostomy (hx of toxic megacolon -C diff complicated with perforation) presents to the emergency department complaining of upper abdominal pain that started today. The pain is described colicky and is associated with nausea, vomiting and fever. She noted increasing fecal output from her colostomy bag. Stools are quite weak with and greenish. She denied any headache, chest pain or shortness on breath. She did not report any acute urinary symptoms. Denied alcohol abuse, tobacco smoking or illicit drug use. Her grandchildren and daughter has similar symptoms. In the ED, she has been found with tachycardia. There is no hypotension or fever. Oxygen saturation is normal room air. Blood workup showed slight leukocytosis, 11.6. CRP is elevated. Hemoglobin is 17.9. BUN and creatinine are elevated (44/2.7 ; previous were normal). LFTs are elevated (similar values on August 2023). ED tx: NS 2 L bolus, ketorolac 15 mg IV, Zofran 4 mg IV. Review of Systems Review of Systems: All 12 systems were reviewed and normal except as noted in HPI. [facility] Medical History Parastomal hernia Subcutaneous abscess Seborrheic dermatitis Migraines Fatty liver disease, nonalcoholic Sinusitis Ileostomy in place Dizziness Recurrent vomiting Gastroparesis Intra-abdominal abscess Intra-abdominal abscess Fever of unknown origin Leukocytosis Shock Perforated viscus COVID-19 vaccine series completed Environmental allergies PONV (postoperative nausea and vomiting) Thoracic disc herniation Herniated cervical disc Back pain Fibromyalgia Hx of migraines Crohn's disease Iron deficiency anemia Carpal tunnel syndrome Arthritis Vitamin D deficiency GERD (gastroesophageal reflux disease) Family History Paternal Grandmother High blood pressure High cholesterol Mother Throat cancer Alcoholism Maternal Grandmother Breast cancer Paternal Grandfather Prostate cancer Family/Other High blood pressure Surgical History S/P colectomy Status post colostomy Hx of shoulder surgery History of surgery Hx of fusion of cervical spine Hx of cholecystectomy History of tonsillectomy History of esophagogastroduodenoscopy (EGD) History of tubal ligation Hx of colonoscopy Social History Household Members: Spouse and Family Household Members Other:: Stepson Housing: House Are you a primary healthcare corporate account director to a significant other at home: No Do you presently have visiting nurse or other home services: Yes Unable to assess alcohol history related to: Unknown Alcohol intake: former Comment: restraints Patient Tobacco Use Status: Former Tobacco user Quit Date: 23 years ago Tobacco use type: Cigarette Smoked in Last 30 Days: No e-Cigarette/Vaping Use: Never Used Second Hand Smoke Exposure: No Use of substances other than those prescribed or required for medical reasons: No Advance Directives: Yes Advance Directives on File: Yes Advance Directives Date on File: 08/08/22 service: No Current occupational status: employed 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 @ [employer] Cognitive needs: No Hearing needs: No Vision needs: No Meds Allergies Allergy/AdvReac Type Severity Reaction Status Date / Time omeprazole [OMEPRAZOLE] Allergy Severe N/V Verified 11/15/23 09:21 tramadol [From Ultram] Allergy Intermediate ITCHING Verified 11/15/23 09:21 ibuprofen [From Motrin] Allergy Unknown Verified 11/15/23 09:21 Active Medications: Current Medications Acetaminophen (Acetaminophen 325 Mg Tablet) 650 mg PO Q6H PRN PRN Reason: Pain, Mild (Pain Scale 1-3) Sodium Chloride (Ns) 1,000 mls @ 100 mls/hr IVCONT .Q10H GAUDENCIO Morphine Sulfate (Morphine Sulfate 2 Mg/Ml Cartridge) 2 mg IVPUSH Q3H PRN; Protocol PRN Reason: Pain, Severe (Pain Scale 7-10) Pantoprazole Sodium (Pantoprazole Sodium 40 Mg/10 Ml Vial) 40 mg IVPUSH DAILY [facility] Sodium Chloride (0.9 % Sodium Chloride Flush 3 Ml Syringe) 3 ml IVFLUSH QSHIFT [facility] Home Medications Medication Instructions Recorded Confirmed Last Taken Type methocarbamol 750 mg tablet 750 mg PO TID 10/21/20 11/15/23 10/26/22 History ondansetron 8 mg disintegrating 1 tab PO DAILY PRN Nausea 05/18/22 11/15/23 Unknown History tablet rizatriptan 10 mg tablet 1 tab PO DAILY PRN Migraine 05/18/22 11/15/23 Unknown History Headache fremanezumab-vfrm 225 mg/1.5 mL 225 mg subcut Q30D 08/05/22 11/15/23 2 Weeks Ago History subcutaneous syringe (Ajovy ~10/12/22 Syringe) [id number] 8 mg-folic 400 1 tab PO DAILY 02/02/23 11/15/23 Unknown History mcg-K 50 mcg-lutein 300 mcg tablet (Centrum Silver Women) cholecalciferol (vitamin D3) 25 25 mcg PO DAILY 05/16/23 11/15/23 Unknown History mcg (1,000 unit) capsule loratadine 10 mg tablet (Claritin) 10 mg PO DAILY 09/11/23 11/15/23 Unknown History pantoprazole 40 mg tablet,delayed 40 mg PO DAILY 09/11/23 11/15/23 Unknown History release Physical Exam Vital Signs and Narrative: Vital Signs: Last Vital Signs Temp 98.0 F 11/18/23 22:06 Pulse 100 11/18/23 22:06 Resp 16 11/18/23 22:06 BP 107/71 11/18/23 22:06 Pulse Ox 93 11/18/23 22:06 O2 Del Method Room Air 11/18/23 22:06 BMI result Body Mass Index 31.9 Constitutional - Awake and Alert, No apparent distress. Cooperative. HEENT -dry oral mucosa Heart - tachycardia. Regular rhythm. No murmurs Lungs - Normal lung expansion, Normal respiratory effort, No respiratory distress, CTA bilaterally Abdomen - colostomy bag in place (almost filled with green liquid fecal material), no distention; increased BS; epigastric tenderness. No rebound. No guarding. - No CVA tenderness Extremities - no calf tenderness bilaterally, no swelling Musculoskeletal - Normal inspection, normal ROM Skin - Warm/Dry Neurological - Alert & oriented x3. No focal weakness grossly noted. Normal speech. Psychological - Appropriate affect Results Labs 11/18/23 17:32 11/18/23 17:32 Labs: Laboratory Results - last 24 hr 11/18/23 11/18/23 17:32 17:58 MCV 88.6 MCH 31.0 MCHC 35.0 RDW 12.3 Plt Count 294 MPV 10.5 Immature Gran % (Auto) 0.3 Neut % (Auto) 60.7 Lymph % (Auto) 29.5 [place] % (Auto) 9.1 Eos % (Auto) 0.1 Baso % (Auto) 0.3 Lymph # (Auto) 3.4 [place] # (Auto) 1.1 Eos # (Auto) 0.0 Baso # (Auto) 0.0 Abs Immat Gran (auto) 0.03 Absolute Neuts (auto) 7.0 Absolute Nucleated RBC 0.000 Nucleated RBC % (auto) 0.0 Anion Gap 22 H Estim Creat Clear Calc 21.8 Estimated GFR 18 Random Glucose 160 H Calcium 10.4 H D Magnesium 2.5 Total Bilirubin 0.7 Direct Bilirubin 0.3 AST 78 H ALT 126 H Alkaline Phosphatase 203 H Total Protein 9.5 H Albumin 5.1 H C. difficile Tox B Gene NEGATIVE Influenza Type A (PCR) NEGATIVE Influenza Type B (PCR) NEGATIVE RSV RNA Qual (PCR) NEGATIVE SARS-CoV-2 RNA (RT-PCR) NEGATIVE Imaging Radiologist's Impressions: Impressions KUB X-Ray 11/18/23 20:33 IMPRESSION: No acute abnormality of the abdomen. Nonobstructive bowel pattern. Assessment and Plan (1) Acute kidney injury: Status: Acute (2) Gastroenteritis: Status: Acute (3) Ileostomy in place: Status: Acute (4) Gastroparesis: Status: Acute (5) Crohn's disease: Qualifiers: Gastrointestinal tract location: unspecified location Digestive disease complication type: without complication Qualified Code(s): K50.90 - Crohn's disease, unspecified, without complications Status: Acute (6) Fibromyalgia: Status: Acute Plan Ju Henson is a 63 years old woman with past medical history significant for gastroparesis, Crohn's disease (not on tx), GERD and s/p subtotal colectomy with end ileostomy (hx of toxic megacolon -C diff complicated with perforation) admitted with: Epigastric pain associated with increased fecal output from colostomy. Likely secondary to acute gastroenteritis (grandchildren with same symptoms). Doubt C. diff infection due to history of colectomy. Less likely acute exacerbation of Crohn's. Recheck CRP, if continue elevated we will consider IV steroids. Admit to hospitalist service. Keep NPO. Continue IV fluids. Start treatment with Protonix 40 mg IV daily. Supportive therapy with pain medications and antiemetics. Acute kidney injury secondary to gastroenteritis/increased fecal output. Continue IV fluids. Continue to monitor renal function. Avoid nephrotoxic agents. Fibromyalgia. Continue duloxetine. DVT prophylaxis: SCDs Code status: Full Patient will need hospitalization for at least 2 midnights for acute kidney injury treatment with IV antibiotics and close monitoring of renal function. Patient also will need supportive therapy for acute gastroenteritis. Quality Stroke Does the patient have a stroke diagnosis?: No VTE Prior VTE?: No VTE Risk Level:: Medical - moderate - high VTE Device Contraindication: N/A - Device Ordered VTE Drug Contraindication: Treatment Not Indicated
[2023-11-18] MEDS: Pantoprazole Sodium 40 MG/10 ML VIAL IVPUSH (22:22)
--- NOTE | 2023-11-18 22:26 | PC.NURSE ---
Pt medicated per nov. Plan of care ongoing.
--- NOTE | 2023-11-18 22:27 | PC.NURSE ---
Provider Godwin confirmed protonix bolus only given other to be d/c. Plan of care ongoing.
[2023-11-19 01:24] VITALS: BP 148/71; PULSE 75; RESP 16; TEMP 36.2; O2SAT 93
[2023-11-19] MEDS: 0.9 % Sodium Chloride 1,000 ML 100 ML IVCONT ×2 (02:01→14:36)
[2023-11-19 03:13] VITALS: BP 126/70; PULSE 80; RESP 16; TEMP 36.2; O2SAT 96
[2023-11-19 03:18] VITALS: BMI 31.0
[2023-11-19] MEDS: Morphine Sulfate 2 MG/ML CARTRIDGE IVPUSH ×5 (03:30→23:13)
[2023-11-19 04:00] VITALS: RESP 18
[2023-11-19 06:50] LABS: MANUAL DIFF FLAG NO
[2023-11-19 07:03] LABS: Basophils Percent Auto 0.4 % (0-2); Eosinophils Percent Auto 0.4 % (0-4); Hematocrit 42.7 % (37.0-47.0); Hemoglobin 14.7 g/dl (12.0-16.0); Imm Gran Abs Auto 0.03 X10*3/uL (0.00-0.03); Imm Gran Pct Auto 0.4 % (0.0-0.4); Lymphocytes Absolute Auto 2.7 X10*3/uL (1.2-4.9); Lymphocytes Percent Auto 35.3 % (20-40); Mean Corpuscular HGB Conc 34.4 g/dl (31.0-35.0); Mean Corpuscular Hemoglobin 31.1 pg (27.0-33.0); Mean Corpuscular Volume 90.3 fL (80.0-98.0); Mean Platelet Volume 10.1 fL (9.4-12.3); Monocytes Percent Auto 13.8 % (2-11); Neutrophils Absolute Auto 3.8 x10*3/uL (2.0-8.3); Neutrophils Percent Auto 49.7 % (45-73); Platelet Count 206 X10*3/uL (160-400); Red Blood Count 4.73 X10*6/uL (4.20-5.50); Red Cell Distribution Width 12.3 % (11.0-16.0); White Blood Count 7.6 X10*3/uL (4.8-10.8)
[2023-11-19 07:36] VITALS: BP 129/67; PULSE 80; RESP 18; TEMP 36.3; O2SAT 93
[2023-11-19 07:55] LABS: Alanine Aminotransferase 93 U/L (0-31); Albumin Level 3.9 g/dL (3.5-5.0); Alkaline Phosphatase 154 U/L (39-117); Anion Gap 16 (12-20); Aspartate Amino Transferase 62 U/L (5-31); Bilirubin Total 0.7 mg/dL (0.0-1.0); Blood Urea Nitrogen 40 mg/dL (9-16); Calcium 8.8 mg/dL (8.4-10.2); Carbon Dioxide 25 mmol/L (22-29); Chloride 102 mmol/L (96-108); Creatinine Clr Calc Pharmacy 37.2; Estimated Glomerular Filt Rate 34; Glucose Random 88 mg/dL (60-115); Potassium 3.2 mmol/L (3.3-5.1); Sodium 140 mmol/L (135-145); Total Protein 7.1 g/dL (6.5-8.0)
--- NOTE | 2023-11-19 08:08 | PM.CNGS ---
History of Present Illness Consult details Consult date: 11/19/23 Narrative: 63-year-old female admitted for diarrhea via the ileostomy, with dehydration. She is well known to me. She has a history emergency sigmoid resection for perforation in 2021. She then developed C diff infection with toxic megacolon, and underwent total colectomy a month after. She has had an ileostomy since then She had been in her usual state of well but noted high output very watery stools from her ileostomy the night before her admission. This persisted throughout the day and she developed body malaise weakness along with what she says is diffuse muscle pain . She describes some vomiting at home and some crampy abdominal pain. She did state that 2 other family members had severe diarrhea as well and she had been in contact with them. She was noted to have elevated creatinine in the ER along with the hydration. She was therefore admitted and given IV fluids She currently feels better although describes some muscle cramps periodically. She denies any abdominal pain at this time. She has had no vomiting since she had been here. She says that her ileostomy output has slowed down. Review of Systems Constitutional: Constitutional: Denies chills and Denies fever(s) Cardiovascular: Cardiovascular: Denies chest pain, Denies dyspnea and Denies dyspnea on exertion Respiratory: Respiratory: Denies cough, Denies dyspnea and Denies dyspnea on exertion Gastrointestinal: Gastrointestinal: Denies hematochezia Comments: Had high output ileostomy Genitourinary: Genitourinary: Denies hematuria Musculoskeletal: Musculoskeletal: Denies back pain, Reports myalgias, Reports arthralgias and Denies limited range of motion Neurologic: Denies focal weakness and Denies convulsions Psychiatric: Psychiatric: Denies depression and Denies mood swings [facility] Past Medical History Medical History Parastomal hernia Subcutaneous abscess Seborrheic dermatitis Migraines Fatty liver disease, nonalcoholic Sinusitis Ileostomy in place Dizziness Recurrent vomiting Gastroparesis Intra-abdominal abscess Intra-abdominal abscess Fever of unknown origin Leukocytosis Shock Perforated viscus COVID-19 vaccine series completed Environmental allergies PONV (postoperative nausea and vomiting) Thoracic disc herniation Herniated cervical disc Back pain Fibromyalgia Hx of migraines Crohn's disease Iron deficiency anemia Carpal tunnel syndrome Arthritis Vitamin D deficiency GERD (gastroesophageal reflux disease) Family History Family History Paternal Grandmother High blood pressure High cholesterol Mother Throat cancer Alcoholism Maternal Grandmother Breast cancer Paternal Grandfather Prostate cancer Family/Other High blood pressure Surgical History Surgical History S/P colectomy Status post colostomy Hx of shoulder surgery History of surgery Hx of fusion of cervical spine Hx of cholecystectomy History of tonsillectomy History of esophagogastroduodenoscopy (EGD) History of tubal ligation Hx of colonoscopy Social History Social History Household Members: Spouse and Family Household Members Other:: Stepson Housing: House Are you a primary cna caregiver to a significant other at home: No Do you presently have visiting nurse or other home services: No Unable to assess alcohol history related to: Unknown Alcohol intake: former Comment: restraints Patient Tobacco Use Status: Former Tobacco user Quit Date: 23 years ago Tobacco use type: Cigarette e-Cigarette/Vaping Use: Never Used Second Hand Smoke Exposure: No Advance Directives Date on File: 08/08/22 service: No Current occupational status: employed 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 @ [employer] Cognitive needs: No Hearing needs: No Vision needs: No Meds Allergies Allergy/AdvReac Type Severity Reaction Status Date / Time omeprazole [OMEPRAZOLE] Allergy Severe N/V Verified 11/15/23 09:21 tramadol [From Ultram] Allergy Intermediate ITCHING Verified 11/15/23 09:21 ibuprofen [From Motrin] Allergy Unknown Verified 11/15/23 09:21 Active Medications: Current Medications Acetaminophen (Acetaminophen 325 Mg Tablet) 650 mg PO Q6H PRN PRN Reason: Pain, Mild (Pain Scale 1-3) Sodium Chloride (Ns) 1,000 mls @ 100 mls/hr IVCONT .Q10H GAUDENCIO Last Admin: 11/19/23 02:01 Dose: 100 mls/hr Magnesium Oxide (Magnesium Oxide 400 Mg Tablet) 600 mg PO DAILY GAUDENCIO Methocarbamol (Methocarbamol 750 Mg Tablet) 750 mg PO TID GAUDENCIO Morphine Sulfate (Morphine Sulfate 2 Mg/Ml Cartridge) 2 mg IVPUSH Q3H PRN; Protocol PRN Reason: Pain, Severe (Pain Scale 7-10) Last Admin: 11/19/23 03:30 Dose: 2 mg Pantoprazole Sodium (Pantoprazole Sodium 40 Mg/10 Ml Vial) 40 mg IVPUSH DAILY GAUDENCIO Sodium Chloride (0.9 % Sodium Chloride Flush 3 Ml Syringe) 3 ml IVFLUSH QSHIFT GAUDENCIO Last Admin: 11/19/23 07:18 Dose: Not Given Home Medications Medication Instructions Recorded Confirmed Last Taken Type methocarbamol 750 mg tablet 750 mg PO TID 10/21/20 11/19/23 11/18/23 History ondansetron 8 mg disintegrating 1 tab PO DAILY PRN Nausea 05/18/22 11/19/23 Unknown History tablet rizatriptan 10 mg tablet 1 tab PO DAILY PRN Migraine 05/18/22 11/19/23 11/18/23 History Headache fremanezumab-vfrm 225 mg/1.5 mL 225 mg subcut Q30D 08/05/22 11/19/23 11/12/23 History subcutaneous syringe (Ajovy Syringe) [id number] 8 mg-folic 400 1 tab PO DAILY 02/02/23 11/19/23 11/18/23 History mcg-K 50 mcg-lutein 300 mcg tablet (Centrum Silver Women) cholecalciferol (vitamin D3) 25 25 mcg PO DAILY 05/16/23 11/19/23 11/18/23 History mcg (1,000 unit) capsule loratadine 10 mg tablet (Claritin) 10 mg PO DAILY 09/11/23 11/19/23 11/18/23 History pantoprazole 40 mg tablet,delayed 40 mg PO DAILY 09/11/23 11/19/23 11/18/23 History release magnesium oxide 400 mg (241.3 mg 800 mg PO BIDPC 11/19/23 11/19/23 11/18/23 History magnesium) tablet Physical Exam Vital Signs: Vital Signs: Last Vital Signs Temp 97.4 F 11/19/23 07:36 Pulse 80 11/19/23 07:36 Resp 18 11/19/23 07:36 BP 129/67 11/19/23 07:36 Pulse Ox 93 11/19/23 07:36 O2 Del Method Room Air 11/19/23 07:36 BMI result Body Mass Index 31.0 Const: General: comfortable and no acute distress Orientation/consciousness: patient oriented x3 Neck: Neck: Yes no lymphadenopathy Resp: Auscultation: clear to auscultation bilaterally Cardio: Rhythm: regular rhythm GI: Other: Ileostomy in place, dark green output Palpation (GI): Soft to palpation, nontender and no guarding Neuro: General: patient oriented x3 Results Labs 11/20/23 05:53 11/20/23 05:53 Labs: Abnormal lab results 11/18/23 11/19/23 Range/Units 17:32 05:54 WBC 11.6 H (4.8-10.8) X10*3/uL RBC 5.77 H D (4.20-5.50) X10*6/uL Hgb 17.9 H D (12.0-16.0) g/dl Hct 51.1 H D (37.0-47.0) % [place] % (Auto) 13.8 H (2-11) % Potassium 3.2 L (3.3-5.1) mmol/L Chloride 94 L (96-108) mmol/L Anion Gap 22 H (12-20) BUN 44 H 40 H (9-16) mg/dL Creatinine 2.70 H 1.56 H (0.5-1.4) mg/dL Random Glucose 160 H (60-115) mg/dL Calcium 10.4 H D (8.4-10.2) mg/dL AST 78 H 62 H (5-31) U/L ALT 126 H 93 H (0-31) U/L Alkaline Phosphatase 203 H 154 H (39-117) U/L Total Protein 9.5 H (6.5-8.0) g/dL Albumin 5.1 H (3.5-5.0) g/dL Short CBC 11/18/23 11/19/23 Range/Units 17:32 05:54 WBC 11.6 H 7.6 (4.8-10.8) X10*3/uL Hgb 17.9 H D 14.7 (12.0-16.0) g/dl Hct 51.1 H D 42.7 (37.0-47.0) % Plt Count 294 206 D (160-400) X10*3/uL BMP 11/18/23 11/19/23 17:32 05:54 Sodium 136 140 Potassium 3.7 3.2 L Chloride 94 L 102 Carbon Dioxide 24 25 BUN 44 H 40 H Creatinine 2.70 H 1.56 H Calcium 10.4 H D 8.8 D Liver Function 11/18/23 11/19/23 Range/Units 17:32 05:54 Total Bilirubin 0.7 0.7 (0.0-1.0) mg/dL Direct Bilirubin 0.3 (0.0-0.5) mg/dL AST 78 H 62 H (5-31) U/L ALT 126 H 93 H (0-31) U/L Alkaline Phosphatase 203 H 154 H (39-117) U/L Albumin 5.1 H 3.9 (3.5-5.0) g/dL All other labs normal. Laboratory Results WBC 7.6 X10*3/uL (4.8-10.8) 11/19/23 05:54 RBC 4.73 X10*6/uL (4.20-5.50) 11/19/23 05:54 Hgb 14.7 g/dl (12.0-16.0) 11/19/23 05:54 Hct 42.7 % (37.0-47.0) 11/19/23 05:54 MCV 90.3 fL (80.0-98.0) 11/19/23 05:54 MCH 31.1 pg (27.0-33.0) 11/19/23 05:54 MCHC 34.4 g/dl (31.0-35.0) 11/19/23 05:54 RDW 12.3 % (11.0-16.0) 11/19/23 05:54 Plt Count 206 X10*3/uL (160-400) D 11/19/23 05:54 MPV 10.1 fL (9.4-12.3) 11/19/23 05:54 Immature Gran % (Auto) 0.4 % (0.0-0.4) 11/19/23 05:54 Neut % (Auto) 49.7 % (45-73) 11/19/23 05:54 Lymph % (Auto) 35.3 % (20-40) 11/19/23 05:54 [place] % (Auto) 13.8 % (2-11) H 11/19/23 05:54 Eos % (Auto) 0.4 % (0-4) 11/19/23 05:54 Baso % (Auto) 0.4 % (0-2) 11/19/23 05:54 Lymph # (Auto) 2.7 X10*3/uL (1.2-4.9) 11/19/23 05:54 [place] # (Auto) 1.0 X10*3/uL (0.1-1.2) 11/19/23 05:54 Eos # (Auto) 0.0 X10*3/uL (0.0-0.4) 11/19/23 05:54 Baso # (Auto) 0.0 X10*3/uL (0.0-0.2) 11/19/23 05:54 Abs Immat Gran (auto) 0.03 X10*3/uL (0.00-0.03) 11/19/23 05:54 Absolute Neuts (auto) 3.8 x10*3/uL (2.0-8.3) 11/19/23 05:54 Absolute Nucleated RBC 0.000 X10*3/uL (0.0-0.012) 11/19/23 05:54 Nucleated RBC % (auto) 0.0 /100WBC (0.0-0.2) 11/19/23 05:54 Sodium 140 mmol/L (135-145) 11/19/23 05:54 Potassium 3.2 mmol/L (3.3-5.1) L 11/19/23 05:54 Chloride 102 mmol/L (96-108) 11/19/23 05:54 Carbon Dioxide 25 mmol/L (22-29) 11/19/23 05:54 Anion Gap 16 (12-20) 11/19/23 05:54 BUN 40 mg/dL (9-16) H 11/19/23 05:54 Creatinine 1.56 mg/dL (0.5-1.4) H 11/19/23 05:54 Estim Creat Clear Calc 37.2 11/19/23 05:54 Estimated GFR 34 11/19/23 05:54 Random Glucose 88 mg/dL (60-115) 11/19/23 05:54 Calcium 8.8 mg/dL (8.4-10.2) D 11/19/23 05:54 Magnesium 2.5 mg/dL (1.6-2.6) 11/18/23 17:32 Total Bilirubin 0.7 mg/dL (0.0-1.0) 11/19/23 05:54 Direct Bilirubin 0.3 mg/dL (0.0-0.5) 11/18/23 17:32 AST 62 U/L (5-31) H 11/19/23 05:54 ALT 93 U/L (0-31) H 11/19/23 05:54 Alkaline Phosphatase 154 U/L (39-117) H 11/19/23 05:54 Total Protein 7.1 g/dL (6.5-8.0) 11/19/23 05:54 Albumin 3.9 g/dL (3.5-5.0) 11/19/23 05:54 C. difficile Tox B Gene NEGATIVE (Negative) 11/18/23 17:58 Influenza Type A (PCR) NEGATIVE (Negative) 11/18/23 17:32 Influenza Type B (PCR) NEGATIVE (Negative) 11/18/23 17:32 RSV RNA Qual (PCR) NEGATIVE (Negative) 11/18/23 17:32 SARS-CoV-2 RNA (RT-PCR) NEGATIVE (Negative) 11/18/23 17:32 Impressions KUB X-Ray 11/18/23 20:33 IMPRESSION: No acute abnormality of the abdomen. Nonobstructive bowel pattern. Assessment and Plan (1) Acute kidney injury: Status: Acute She had high ileostomy output for over 24 hours. She describes diffuse muscle cramps, abdominal pain at home. Currently, she feels much improved. Her labs and overall clinical picture are consistent with volume depletion from diarrhea. Etiology of diarrhea is likely infectious, she has 2 other family members with severe diarrhea lasting for 24 hours Her abdominal exam is very benign. Her creatinine has improved significantly. I will start her on clear liquids and this may be slowly advanced. Her electrolytes need to be followed. She looks well this morning and is comfortable overall. Procedures Date of Service Date of Service: 11/20/23
[2023-11-19] MEDS: methocarbamoL 750 MG TABLET PO ×3 (08:09→20:44)
[2023-11-19] MEDS: Magnesium Oxide 400 MG TABLET 600 MG PO (08:09)
[2023-11-19] MEDS: Pantoprazole Sodium 40 MG/10 ML VIAL IVPUSH (08:10)
--- NOTE | 2023-11-19 09:50 | PHA.MEDREC ---
Pharmacy Consult ? Medication Reconciliation Pharmacy has completed the medication reconciliation.Confirmed medications with patient and through claim history.
[2023-11-19] MEDS: Potassium Chloride Packet 20 MEQ PACKET PO (10:45)
--- NOTE | 2023-11-19 11:32 | MHC.CM.PN ---
pt lives with is independent is working has own ride home cm intervention not indicated
[2023-11-19 13:10] LABS: Adenovirus F 40/41 Not Detected (Not Detect.); Astrovirus Not Detected (Not Detect.); Campylobacter Not Detected (Not Detect.); Cryptosporidium Not Detected (Not Detect.); Cyclospora cayetanensis Not Detected (Not Detect.); E. coli EAEC Not Detected (Not Detect.); E. coli EPEC Not Detected (Not Detect.); E. coli ETEC Not Detected (Not Detect.); E. coli STEC Not Detected (Not Detect.); Entamoeba histolytica Not Detected (Not Detect.); Giardia lamblia Not Detected (Not Detect.); Plesiomonas shigelloides Not Detected (Not Detect.); Rotavirus A Not Detected (Not Detect.); Salmonella Not Detected (Not Detect.); Sapovirus Not Detected (Not Detect.); Shigella sp./EIEC Not Detected (Not Detect.); Vibrio Not Detected (Not Detect.); Vibrio Cholerae Not Detected (Not Detect.); Yersinia enterocolitica Not Detected (Not Detect.)
--- NOTE | 2023-11-19 13:23 | HO.PM.IMPN ---
Subjective Subjective Date of Service: 11/19/23 Interval History: Epigastric pain associated with increased fecal output from colostomy celia Review of Systems pain improving still has high output no fevers Physical Exam Vital Signs: Vital Signs: Last Vital Signs Temp 97.4 F 11/19/23 07:36 Pulse 80 11/19/23 07:36 Resp 18 11/19/23 07:36 BP 129/67 11/19/23 07:36 Pulse Ox 93 11/19/23 07:36 O2 Del Method Room Air 11/19/23 07:36 BMI result Body Mass Index 31.0 Appearance: Alert.? Oriented X3.? cvs: rrr, [id number] , no murmur res: clear to auscultation ,no rhonchii or wheezing abd: no rebound or guarding ,nt, bs present. ext pulses present , no cyanosis . neuro: axo3 , nonfocal. Objective Data Active Medications Acetaminophen (Acetaminophen 325 Mg Tablet) 650 mg PO Q6H PRN PRN Reason: Pain, Mild (Pain Scale 1-3) Sodium Chloride (Ns) 1,000 mls @ 100 mls/hr IVCONT .Q10H [facility] Last Infusion: 11/19/23 12:54 Dose: Infused Documented By: ALEIDA Magnesium Oxide (Magnesium Oxide 400 Mg Tablet) 600 mg PO DAILY [facility] Last Admin: 11/19/23 08:09 Dose: 600 mg Documented By: MIRNA Comments: Methocarbamol (Methocarbamol 750 Mg Tablet) 750 mg PO TID [facility] Last Admin: 11/19/23 08:09 Dose: 750 mg Documented By: MIRNA Morphine Sulfate (Morphine Sulfate 2 Mg/Ml Cartridge) 2 mg IVPUSH Q3H PRN; Protocol PRN Reason: Pain, Severe (Pain Scale 7-10) Last Admin: 11/19/23 09:01 Dose: 2 mg Documented By: MIRNA Pantoprazole Sodium (Pantoprazole Sodium 40 Mg/10 Ml Vial) 40 mg IVPUSH DAILY [facility] Last Admin: 11/19/23 08:10 Dose: 40 mg Documented By: MIRNA Sodium Chloride (0.9 % Sodium Chloride Flush 3 Ml Syringe) 3 ml IVFLUSH QSHIFT [facility] Last Admin: 11/19/23 07:18 Dose: Not Given Documented By: MIRNA Non-Admin Reason: IV Running Labs 11/19/23 05:54 11/19/23 05:54 Labs: Laboratory Results - last 24 hr 11/18/23 11/18/23 11/19/23 17:32 17:58 05:54 MCV 88.6 90.3 MCH 31.0 31.1 MCHC 35.0 34.4 RDW 12.3 12.3 Plt Count 294 206 D MPV 10.5 10.1 Immature Gran % (Auto) 0.3 0.4 Neut % (Auto) 60.7 49.7 Lymph % (Auto) 29.5 35.3 [place]asta % (Auto) 9.1 13.8 H Eos % (Auto) 0.1 0.4 Baso % (Auto) 0.3 0.4 Lymph # (Auto) 3.4 2.7 [place] # (Auto) 1.1 1.0 Eos # (Auto) 0.0 0.0 Baso # (Auto) 0.0 0.0 Abs Immat Gran (auto) 0.03 0.03 Absolute Neuts (auto) 7.0 3.8 Absolute Nucleated RBC 0.000 0.000 Nucleated RBC % (auto) 0.0 0.0 Anion Gap 22 H 16 Estim Creat Clear Calc 21.8 37.2 Estimated GFR 18 34 Random Glucose 160 H 88 Calcium 10.4 H D 8.8 D Magnesium 2.5 Total Bilirubin 0.7 0.7 Direct Bilirubin 0.3 AST 78 H 62 H ALT 126 H 93 H Alkaline Phosphatase 203 H 154 H Total Protein 9.5 H 7.1 Albumin 5.1 H 3.9 C. difficile Tox B Gene NEGATIVE Influenza Type A (PCR) NEGATIVE Influenza Type B (PCR) NEGATIVE RSV RNA Qual (PCR) NEGATIVE SARS-CoV-2 RNA (RT-PCR) NEGATIVE Assessment and Plan (1) Gastroenteritis: Status: Acute (2) Acute kidney injury: Status: Acute Plan 63 years old woman with past medical history significant for gastroparesis, Crohn's disease (not on tx), GERD and s/p subtotal colectomy with end ileostomy (hx of toxic megacolon -C diff complicated with perforation) admitted with: possible gasteroentritis: epigastric discomfort improving cdiff neg Gi panel,crp possible also associated with increased fecal output from colostomy. Likely secondary to acute gastroenteritis (grandchildren with same symptoms). plan: Keep NPO. Continue IV fluids. Protonix 40 mg IV daily. Supportive therapy with pain medications and antiemetics. added surgery eval for increased Ileostomy output ,if does not improved will consider Gi eval. Acute kidney injury secondary to gastroenteritis/increased fecal output. Continue IV fluids. Continue to monitor renal function. Avoid nephrotoxic agents. Fibromyalgia. Continue duloxetine. DVT prophylaxis: SCDs ongoing hospitalization for for 48-72 hrs : for gateronetritis ,acute kidney injury treatment with IV antibiotics and close monitoring of renal function. Patient also will need supportive therapy for acute gastroenteritis,expert consultation Quality Stroke Does the patient have a stroke diagnosis?: No VTE Prior VTE?: No VTE Risk Level:: Medical - moderate - high VTE Device Contraindication: N/A - Device Ordered VTE Drug Contraindication: Treatment Not Indicated
[2023-11-19 15:04] VITALS: BP 136/62; PULSE 86; RESP 18; TEMP 36.6; O2SAT 95
--- NOTE | 2023-11-19 15:46 | MHC.IC ---
+ [employer]OV[employer]. STRICT HAND WASHING W SOAP AND WATER. CLEAN W BLEACH.
[2023-11-19] MEDS: ondansetron HCL 4 MG/2 ML VIAL IVPUSH (16:56)
[2023-11-19] MEDS: Magnesium Oxide 400 MG TABLET 800 MG PO (18:07)
[2023-11-19 19:15] VITALS: BP 131/69; PULSE 83; RESP 18; TEMP 37.1; O2SAT 93
[2023-11-19] MEDS: DULoxetine HCl 20 MG CAPSULE.DR PO (20:44)
[2023-11-20] MEDS: 0.9 % Sodium Chloride 1,000 ML 100 ML IVCONT ×3 (00:20→19:46)
[2023-11-20 03:22] VITALS: BP 131/60; PULSE 79; RESP 16; TEMP 36.4; O2SAT 99
[2023-11-20] MEDS: ondansetron HCL 4 MG/2 ML VIAL IVPUSH (03:59)
[2023-11-20] MEDS: Morphine Sulfate 2 MG/ML CARTRIDGE IVPUSH ×4 (03:59→21:23)
[2023-11-20 07:02] LABS: Hematocrit 39.1 % (37.0-47.0); Hemoglobin 13.7 g/dl (12.0-16.0); Mean Corpuscular Hemoglobin 31.9 pg (27.0-33.0); Mean Corpuscular Volume 90.9 fL (80.0-98.0); Platelet Count 193 X10*3/uL (160-400); Red Cell Distribution Width 12.4 % (11.0-16.0); White Blood Count 5.6 X10*3/uL (4.8-10.8)
[2023-11-20 07:15] LABS: Anion Gap 11 (12-20); Blood Urea Nitrogen 22 mg/dL (9-16); Calcium 8.6 mg/dL (8.4-10.2); Carbon Dioxide 24 mmol/L (22-29); Chloride 109 mmol/L (96-108); Creatinine Clr Calc Pharmacy 70.9; Estimated Glomerular Filt Rate > 60; Glucose Random 97 mg/dL (60-115); Potassium 3.5 mmol/L (3.3-5.1); Sodium 140 mmol/L (135-145)
[2023-11-20 07:40] VITALS: BP 115/55; PULSE 70; RESP 18; TEMP 36.3; O2SAT 94
[2023-11-20] MEDS: Pantoprazole Sodium 40 MG/10 ML VIAL IVPUSH (08:04)
[2023-11-20] MEDS: Magnesium Oxide 400 MG TABLET 800 MG PO ×2 (08:04→17:28)
[2023-11-20] MEDS: methocarbamoL 750 MG TABLET PO ×3 (08:04→21:23)
[2023-11-20] MEDS: DULoxetine HCl 20 MG CAPSULE.DR PO ×2 (08:05→21:23)
[2023-11-20] MEDS: Multivitamin TABLET 1 TAB PO (08:05)
[2023-11-20] MEDS: Loratadine 10 MG TABLET PO (08:05)
[2023-11-20] MEDS: Cholecalciferol (Vitamin D3) 25 MCG TABLET PO (08:05)
--- NOTE | 2023-11-20 08:52 | PM.PNGS ---
Subjective Subjective Date of Service: 11/20/23 Interval history: Feels well this morning Hungry and wants to eat She says she has more energy Ileostomy output still very watery Physical Exam Vital Signs: Vital Signs: Last Vital Signs Temp 97.4 F 11/20/23 07:40 Pulse 70 11/20/23 07:40 Resp 18 11/20/23 07:40 BP 115/55 L 11/20/23 07:40 Pulse Ox 94 11/20/23 07:40 O2 Del Method Room Air 11/20/23 07:40 BMI result Body Mass Index 31.0 Const: General: comfortable and no acute distress Resp: Effort & Inspection: normal respiratory effort Cardio: Rate: regular rate GI: Other: Stoma had very watery output Palpation (GI): Soft to palpation, not firm, nontender and no guarding Objective Data Active Medications Acetaminophen (Acetaminophen 325 Mg Tablet) 650 mg PO Q6H PRN PRN Reason: Pain, Mild (Pain Scale 1-3) Duloxetine HCl (Duloxetine Hcl 20 Mg Capsule.Dr) 20 mg PO BID [facility] Last Admin: 11/20/23 08:05 Dose: 20 mg Documented By: MIRNA Sodium Chloride (Ns) 1,000 mls @ 100 mls/hr IVCONT .Q10H [facility] Last Admin: 11/20/23 00:20 Dose: 100 mls/hr Documented By: SHANTI Loratadine (Loratadine 10 Mg Tablet) 10 mg PO DAILY [facility] Last Admin: 11/20/23 08:05 Dose: 10 mg Documented By: MIRNA Magnesium Oxide (Magnesium Oxide 400 Mg Tablet) 800 mg PO BIDPC [facility] Last Admin: 11/20/23 08:04 Dose: 800 mg Documented By: MIRNA Methocarbamol (Methocarbamol 750 Mg Tablet) 750 mg PO TID [facility] Last Admin: 11/20/23 08:04 Dose: 750 mg Documented By: MIRNA Morphine Sulfate (Morphine Sulfate 2 Mg/Ml Cartridge) 2 mg IVPUSH Q3H PRN; Protocol PRN Reason: Pain, Severe (Pain Scale 7-10) Last Admin: 11/20/23 03:59 Dose: 2 mg Documented By: SHANTI Multivitamins/Vitamin C (Multivitamin Tablet) 1 tab PO DAILY [facility] Last Admin: 11/20/23 08:05 Dose: 1 tab Documented By: MIRNA Non-Formulary Medication (Fremanezumab-Vfrm [Ajovy Syringe]) 225 mg SUBCUT Q30D [facility] Non-Formulary Medication (Rizatriptan) 1 tab PO DAILY PRN PRN Reason: Migraine Headache Ondansetron HCl (Ondansetron Hcl 4 Mg/2 Ml Vial) 4 mg IVPUSH Q6H PRN PRN Reason: Nausea and Vomiting Last Admin: 11/20/23 03:59 Dose: 4 mg Documented By: SHANTI Pantoprazole Sodium (Pantoprazole Sodium 40 Mg/10 Ml Vial) 40 mg IVPUSH DAILY [facility] Last Admin: 11/20/23 08:04 Dose: 40 mg Documented By: MIRNA Sodium Chloride (0.9 % Sodium Chloride Flush 3 Ml Syringe) 3 ml IVFLUSH QSHIFT [facility] Last Admin: 11/20/23 07:26 Dose: Not Given Documented By: MIRNA Non-Admin Reason: IV Running Vitamin D (Cholecalciferol (Vitamin D3) 25 Mcg Tablet) 25 mcg PO DAILY [facility] Last Admin: 11/20/23 08:05 Dose: 25 mcg Documented By: MIRNA Labs 11/20/23 05:53 11/20/23 05:53 Labs: Laboratory Results - last 24 hr 11/18/23 11/20/23 17:58 05:53 MCV 90.9 MCH 31.9 MCHC 35.0 RDW 12.4 Plt Count 193 MPV 10.0 Absolute Nucleated RBC 0.000 Nucleated RBC % (auto) 0.0 Anion Gap 11 L Estim Creat Clear Calc 70.9 Estimated GFR > 60 Random Glucose 97 Calcium 8.6 Stl C. cayetanensis PCR Not Detected Stool Rotavirus A PCR Not Detected Stl Adenov F 40/41 PCR Not Detected Stool Astrovirus (PCR) Not Detected Stool Campylobacter PCR Not Detected Stool Cryptosporidium PCR Not Detected Stl Sh Tox Pr E STEC PCR Not Detected Stool E coli O157 PCR Not applicable Stl Enterotoxigenic E PCR Not Detected Stool EPEC (PCR) Not Detected Stool EAEC (PCR) Not Detected Stl E. histolytica PCR Not Detected Stool Giardia Lamblia PCR Not Detected Stl P. shigelloides PCR Not Detected Stool Salmonella PCR Not Detected Stool Sapovirus (PCR) Not Detected Stl Shigella/EIEC PCR Not Detected St Y.enterocolitica PCR Not Detected Stool Vibrio (PCR) Not Detected Stl Vibrio cholerae PCR Not Detected Stl Norovirus GI/GII PCR See Comment Procedures Date of Service Date of Service: 11/20/23 Progress Note: A&P Assessment and plan (1) Acute kidney injury: Status: Acute Assessment and Plan: Volume depleted from high output ileostomy likely from gastroenteritis BUN creatinine much improved Clinically looks well Abdomen soft and benign Okay to try to advance diet to regular today Time Spent With Patient Time: Total time managing care of this patient today ____ minutes. Quality Stroke Does the patient have a stroke diagnosis?: No VTE Prior VTE?: No VTE Risk Level:: Medical - moderate - high VTE Device Contraindication: N/A - Device Ordered VTE Drug Contraindication: Treatment Not Indicated
--- NOTE | 2023-11-20 12:02 | HO.PM.IMPN ---
Subjective Subjective Date of Service: 11/20/23 Interval History: f/u on high ouput from ileostomy causing saibne and dehydration, improving Physical Exam Vital Signs: Vital Signs: Last Vital Signs Temp 97.4 F 11/20/23 07:40 Pulse 70 11/20/23 07:40 Resp 18 11/20/23 07:40 BP 115/55 L 11/20/23 07:40 Pulse Ox 94 11/20/23 07:40 O2 Del Method Room Air 11/20/23 07:40 BMI result Body Mass Index 31.0 General: AO X 3, no acute distress Resp: CTA bilateral CVS: S1,S2,RRR GI: +BS, NT, no distention Skin: No rash Neuro: motor grossly intact Psych: appropriate affect Objective Data Active Medications Acetaminophen (Acetaminophen 325 Mg Tablet) 650 mg PO Q6H PRN PRN Reason: Pain, Mild (Pain Scale 1-3) Duloxetine HCl (Duloxetine Hcl 20 Mg Capsule.Dr) 20 mg PO BID [facility] Last Admin: 11/20/23 08:05 Dose: 20 mg Documented By: MIRNA Sodium Chloride (Ns) 1,000 mls @ 100 mls/hr IVCONT .Q10H [facility] Last Admin: 11/20/23 10:17 Dose: 100 mls/hr Documented By: MIRNA Loratadine (Loratadine 10 Mg Tablet) 10 mg PO DAILY [facility] Last Admin: 11/20/23 08:05 Dose: 10 mg Documented By: MIRNA Magnesium Oxide (Magnesium Oxide 400 Mg Tablet) 800 mg PO BIDPC [facility] Last Admin: 11/20/23 08:04 Dose: 800 mg Documented By: MIRNA Methocarbamol (Methocarbamol 750 Mg Tablet) 750 mg PO TID [facility] Last Admin: 11/20/23 08:04 Dose: 750 mg Documented By: MIRNA Morphine Sulfate (Morphine Sulfate 2 Mg/Ml Cartridge) 2 mg IVPUSH Q3H PRN; Protocol PRN Reason: Pain, Severe (Pain Scale 7-10) Last Admin: 11/20/23 10:32 Dose: 2 mg Documented By: PRIMO Multivitamins/Vitamin C (Multivitamin Tablet) 1 tab PO DAILY [facility] Last Admin: 11/20/23 08:05 Dose: 1 tab Documented By: MIRNA Non-Formulary Medication (Fremanezumab-Vfrm [Ajovy Syringe]) 225 mg SUBCUT Q30D [facility] Non-Formulary Medication (Rizatriptan) 1 tab PO DAILY PRN PRN Reason: Migraine Headache Ondansetron HCl (Ondansetron Hcl 4 Mg/2 Ml Vial) 4 mg IVPUSH Q6H PRN PRN Reason: Nausea and Vomiting Last Admin: 11/20/23 03:59 Dose: 4 mg Documented By: SHANTI Pantoprazole Sodium (Pantoprazole Sodium 40 Mg/10 Ml Vial) 40 mg IVPUSH DAILY [facility] Last Admin: 11/20/23 08:04 Dose: 40 mg Documented By: MIRNA Sodium Chloride (0.9 % Sodium Chloride Flush 3 Ml Syringe) 3 ml IVFLUSH QSHIFT [facility] Last Admin: 11/20/23 07:26 Dose: Not Given Documented By: MIRNA Non-Admin Reason: IV Running Vitamin D (Cholecalciferol (Vitamin D3) 25 Mcg Tablet) 25 mcg PO DAILY [facility] Last Admin: 11/20/23 08:05 Dose: 25 mcg Documented By: MIRNA Labs 11/20/23 05:53 11/20/23 05:53 Labs: Laboratory Results - last 24 hr 11/18/23 11/20/23 17:58 05:53 MCV 90.9 MCH 31.9 MCHC 35.0 RDW 12.4 Plt Count 193 MPV 10.0 Absolute Nucleated RBC 0.000 Nucleated RBC % (auto) 0.0 Anion Gap 11 L Estim Creat Clear Calc 70.9 Estimated GFR > 60 Random Glucose 97 Calcium 8.6 Stl C. cayetanensis PCR Not Detected Stool Rotavirus A PCR Not Detected Stl Adenov F 40/41 PCR Not Detected Stool Astrovirus (PCR) Not Detected Stool Campylobacter PCR Not Detected Stool Cryptosporidium PCR Not Detected Stl Sh Tox Pr E STEC PCR Not Detected Stool E coli O157 PCR Not applicable Stl Enterotoxigenic E PCR Not Detected Stool EPEC (PCR) Not Detected Stool EAEC (PCR) Not Detected Stl E. histolytica PCR Not Detected Stool Giardia Lamblia PCR Not Detected Stl P. shigelloides PCR Not Detected Stool Salmonella PCR Not Detected Stool Sapovirus (PCR) Not Detected Stl Shigella/EIEC PCR Not Detected St Y.enterocolitica PCR Not Detected Stool Vibrio (PCR) Not Detected Stl Vibrio cholerae PCR Not Detected Stl Norovirus GI/GII PCR See Comment Assessment and Plan (1) Gastroenteritis: Status: Acute (2) Acute kidney injury: Status: Acute Plan 63 years old woman with past medical history significant for gastroparesis, Crohn's disease (not on tx), GERD and s/p subtotal colectomy with end ileostomy (hx of toxic megacolon -C diff complicated with perforation) admitted with: acute Dehydration causing SABINE d/t high output from ileostomy--clinically improving. -Cdif and GI panel negative -continue IVF, advance diet to full liquid diet -Surgery following Fibromyalgia/chronic pain syndrome. Continue duloxetine. DVT prophylaxis: SCDs, lovenox need for inpatient: acute dehydration and SABINE from high output ileostomy needing iv fluid replacement and close monitorong of labs Quality Stroke Does the patient have a stroke diagnosis?: No VTE Prior VTE?: No VTE Risk Level:: Medical - moderate - high VTE Device Contraindication: N/A - Device Ordered VTE Drug Contraindication: Treatment Not Indicated
[2023-11-20] MEDS: Enoxaparin Sodium 40 MG/0.4 ML SYRINGE SUBCUT (12:29)
[2023-11-20 15:30] VITALS: BP 129/61; PULSE 78; RESP 19; TEMP 36.7; O2SAT 95
[2023-11-20 16:32] LABS: CRP High Sensitivity >10.0 mg/L
[2023-11-20 19:21] VITALS: BP 126/61; PULSE 73; RESP 17; TEMP 36.5; O2SAT 95
[2023-11-21] MEDS: Morphine Sulfate 2 MG/ML CARTRIDGE IVPUSH (03:24)
[2023-11-21] MEDS: ondansetron HCL 4 MG/2 ML VIAL IVPUSH (03:30)
[2023-11-21 03:31] VITALS: BP 130/73; PULSE 84; RESP 18; TEMP 36.1; O2SAT 96
[2023-11-21 07:34] VITALS: BP 120/60; PULSE 77; RESP 18; TEMP 36.1; O2SAT 96
[2023-11-21] MEDS: Magnesium Oxide 400 MG TABLET 800 MG PO (07:37)
[2023-11-21] MEDS: DULoxetine HCl 20 MG CAPSULE.DR PO (07:38)
[2023-11-21] MEDS: Loratadine 10 MG TABLET PO (07:38)
[2023-11-21] MEDS: Cholecalciferol (Vitamin D3) 25 MCG TABLET PO (07:38)
[2023-11-21] MEDS: Multivitamin TABLET 1 TAB PO (07:38)
[2023-11-21] MEDS: Pantoprazole Sodium 40 MG/10 ML VIAL IVPUSH (07:38)
[2023-11-21] MEDS: methocarbamoL 750 MG TABLET PO (07:38)
--- NOTE | 2023-11-21 09:06 | P.DS_ITS ---
DS: Providers Provider Date of Service: 11/21/23 Date of admission: 11/18/23 21:33 Primary care physician: Manolo Bonilla MD Consults: 11/19/23 07:30 Consult to General Surgery Routine Consulting Provider[place] [facility] Reason for consultation: parastomal hernia Has provider been notified: No DS: Diagnosis Discharge Diagnosis (1) Acute kidney injury: Status: Acute DS: Summary Hospital Course Hospital Course: admission hpi Chief Complaint: Abdominal pain Ju Henson is a 63 years old woman with past medical history significant for gastroparesis, Crohn's disease, GERD and s/p subtotal colectomy with end ileostomy (hx of toxic megacolon -C diff complicated with perforation) presents to the emergency department complaining of upper abdominal pain that started today. The pain is described colicky and is associated with nausea, vomiting and fever. She noted increasing fecal output from her colostomy bag. Stools are quite weak with and greenish. She denied any headache, chest pain or shortness on breath. She did not report any acute urinary symptoms. Denied alcohol abuse, tobacco smoking or illicit drug use. Her grandchildren and daughter has similar symptoms. In the ED, she has been found with tachycardia. There is no hypotension or fever. Oxygen saturation is normal room air. Blood workup showed slight leukocytosis, 11.6. CRP is elevated. Hemoglobin is 17.9. BUN and creatinine are elevated (44/2.7 ; previous were normal). LFTs are elevated (similar values on August 2023). ED tx: NS 2 L bolus, ketorolac 15 mg IV, Zofran 4 mg IV. hospital course: The patient presented with abdominal pain and high output from her ileostomy bag. She was found to be dehydrated and have acute kidney injury (SABINE). Workup included a KUB X-ray, which showed no acute findings. A diagnosis of gastroenteritis causing dehydration and SABINE was established. Her management consisted of intravenous (IV) hydration and surgical evaluation, which revealed no need for intervention. Testing for C. difficile and a GI panel were negative. Over the course of hospitalization, she gradually improved. Her diet was slowly advanced, and she is currently tolerating a regular diet. Her kidney function has returned to normal 0.82 from 2.70, and her ileostomy output has significantly decreased. She wishes to go home. She is advised to drink plenty of fluids and to keep a close eye on her ileostomy output Final diagnoses: Acute gastroenteritis Acute dehydration Acute kidney injury (Sabine) High-output ileostomy Time Attestation Discharge Coordination Time (in mins): 35 Quality: Safe Use of Opioids Does Pt have an Active Cancer Diagnosis on the Problem List?: No Quality: Stroke Does the patient have a stroke diagnosis?: No Physical Exam Vital Signs: Vital Signs: Last Vital Signs Temp 96.9 F 11/21/23 07:34 Pulse 77 11/21/23 07:34 Resp 18 11/21/23 07:34 BP 120/60 11/21/23 07:34 Pulse Ox 96 11/21/23 07:34 O2 Del Method Room Air 11/21/23 07:34 BMI result Body Mass Index 31.0 General: AO X 3, no acute distress Resp: CTA bilateral CVS: S1,S2,RRR GI: +BS, NT, no distention, ileostomy bag in place Skin: No rash Neuro: motor grossly intact Psych: appropriate affect DS: Data Data Completed and Pending Labs on day of discharge: Laboratory Results - last 24 hr 11/19/23 05:54 C-React Prot High Sens >10.0 H Discharge Plan Discharge Anticipated Discharge Date/Time: 11/21/23 09:08 Patient Disposition: Home, Self-Care Discharge Diagnosis: gastroenteritis, dehydration, SABINE Referrals: Manolo Bonilla MD [Primary Care Provider] - 1 Week Discharge Medications: Continued duloxetine 20 mg capsule,delayed release(DR/EC) 20 mg PO BID 30 Days Qty: 60 2RF Ajovy Syringe 225 mg/1.5 mL syringe 225 mg subcut Q30D Rx Instructions: Monthly on the rizatriptan 10 mg tablet 1 tab PO DAILY PRN (Reason: Migraine Headache) ondansetron 8 mg tablet,disintegrating 1 tab PO DAILY PRN (Reason: Nausea) magnesium oxide 400 mg (241.3 mg magnesium) tablet 800 mg PO BIDPC methocarbamol 750 mg tablet 750 mg PO TID pantoprazole 40 mg tablet,delayed release (DR/EC) 40 mg PO DAILY loratadine [Claritin] 10 mg tablet 10 mg PO DAILY Centrum Silver Women 8 mg iron-400 mcg-300 mcg tablet 1 tab PO DAILY cholecalciferol (vitamin D3) 25 mcg (1,000 unit) capsule 25 mcg PO DAILY Discharge Orders: Discharge Order (Routine); Ordered 11/21/23 Ordered By: Miguel Ángel Power Diet: Advance to usual diet Activity on Discharge: As tolerated Stand Alone Forms: Patient Portal Discharge page Care Plan Goals: recovery from diarrhea and dehydration Health Concerns: high output from ileostomy, dehydration, renal failure Plan of Treatment: Drink plenty of fluid, if you notice more than usual output from ileostomy bag and feels weak or dizzy this may be a sing of significant dehydration and you should call 911 follow up with your Doctor in a week, call for appointment Assessment: see above
--- NOTE | 2023-11-21 09:42 | MHC.CM.PN ---
pt dcd home no servies
[2023-11-24 22:49] LABS: Norovirus Stool PCR DETECTED
== END 2023-11-21 13:27 | disposition home or self-care (01) | DRG 249 ==
LOC: HO.ED 20:34 → HO.EDOVER 21:37 → HO.S3 23:43
PROVIDERS: Internal Medicine; Nurse Practitioner Family; Admitting Provider Internal Medicine; Emergency Provider Emergency Medicine; PCP Family Medicine; Visit Provider Internal Medicine
DX: K52.9 Noninfective gastroenteritis and colitis, unspecified (principal); N17.9 Acute kidney failure, unspecified; K50.90 Crohn's disease, unspecified, without complications; E86.0 Dehydration; M79.7 Fibromyalgia; Z93.2 Ileostomy status; Z20.822 Contact with and (suspected) exposure to COVID-19; Z87.891 Personal history of nicotine dependence; Z79.899 Other long term (current) drug therapy
CPT/HCPCS: 0241U; 36415; 74018; 80048; 80053; 80076; 83735; 85025; 85027; 86141; 87493; 87507; 93005; 99285; C9113; J1650; J1885; J2270; J2405

== ENCOUNTER → 2023-11-18 19:21 | Outpatient (BNV) | payer OTHER, SELFPAY | PROVIDERS: Admitting Provider Internal Medicine; Emergency Provider Emergency Medicine; PCP Family Medicine; Visit Provider Internal Medicine Cardiovascular Disease | DX: R00.0 Tachycardia, unspecified (principal) | CPT/HCPCS: 93010 ==

== ENCOUNTER → 2023-11-18 21:33 | Outpatient (BNV) | payer OTHER, SELFPAY | PROVIDERS: Admitting Provider Internal Medicine; Emergency Provider Emergency Medicine; PCP Family Medicine; Visit Provider Internal Medicine | DX: N17.9 Acute kidney failure, unspecified (principal) | CPT/HCPCS: 99222; 99232; 99239 ==

== ENCOUNTER → 2023-11-18 21:33 | Outpatient (BNV) | payer OTHER, SELFPAY | PROVIDERS: Admitting Provider Internal Medicine; Emergency Provider Emergency Medicine; PCP Family Medicine; Visit Provider Surgery | DX: N17.9 Acute kidney failure, unspecified (principal) | CPT/HCPCS: 99222; 99232 ==

== ENCOUNTER 2023-12-06 15:32 | Outpatient (AMB) | payer OTHER, SELFPAY ==
--- NOTE | 2023-12-06 15:34 | A.OFFPC_ITS ---
Vital Signs 12/06/23 15:41 12/06/23 16:34 Height 5 ft 3 in Weight 180 lb 4 oz BMI 31.9 BP 118/88 Blood Pressure Location Lt brachial Position Sitting Respiration 12 Pulse 112 H 96 Pulse Source Pulse Oximeter Auscultation Temp 98.7 F Temp Source Oral Pulse Oximetry (%) 94 Oxygen Delivery Method Room Air Intake Visit Reasons: f/u chronic conditions Intake Note: Follow up chronic issues. Was at [facility] a couple weeks ago Allergies omeprazole [OMEPRAZOLE] Allergy (Severe, Verified 12/06/23 15:39) N/V tramadol [From Ultram] Allergy (Intermediate, Verified 12/06/23 15:39) ITCHING ibuprofen [From Motrin] Allergy (Verified 12/06/23 15:39) Unknown Tobacco use date assessed: 12/06/23 Dental Screening Dental Screen Date: 12/06/23 Did you have a dental visit in the last 12 months?: No Did you have a dental problem in the last 6 months where you did not have access to dental care?: No Was dental information given to patient?: Patient has dentist HPI f/u chronic conditions HPI Details 63 y/o female presents to f/u chronic co nditions. Was in the emergency department for gastroenteritis, had an acute kidney injury due to dehydration. Management consisted of IV hydration and surgical evaluation which revaled no intervention. Kidney function returned to normal. Pt reports L hip and R shoulder pain. [facility] Medical History Parastomal hernia Subcutaneous abscess Seborrheic dermatitis Migraines Fatty liver disease, nonalcoholic Sinusitis Ileostomy in place Dizziness Recurrent vomiting Gastroparesis Intra-abdominal abscess Intra-abdominal abscess Fever of unknown origin Leukocytosis Shock Perforated viscus COVID-19 vaccine series completed Environmental allergies PONV (postoperative nausea and vomiting) Thoracic disc herniation Herniated cervical disc Back pain Fibromyalgia Hx of migraines Crohn's disease Iron deficiency anemia Carpal tunnel syndrome Arthritis Vitamin D deficiency GERD (gastroesophageal reflux disease) Surgical History S/P colectomy Status post colostomy Hx of shoulder surgery History of surgery Hx of fusion of cervical spine Hx of cholecystectomy History of tonsillectomy History of esophagogastroduodenoscopy (EGD) History of tubal ligation Hx of colonoscopy Family History Paternal Grandmother High blood pressure High cholesterol Mother Throat cancer Alcoholism Maternal Grandmother Breast cancer Paternal Grandfather Prostate cancer Family/Other High blood pressure Social History Household Members: Spouse and Family Household Members Other:: Stepson Housing: House Are you a primary long term acute care registered nurse to a significant other at home: No Do you presently have visiting nurse or other home services: No Unable to assess alcohol history related to: Unknown Alcohol intake: former Comment: restraints Patient Tobacco Use Status: Former Tobacco user Quit Date: 23 years ago Tobacco use type: Cigarette e-Cigarette/Vaping Use: Never Used Second Hand Smoke Exposure: No Advance Directives Date on File: 08/08/22 service: No Current occupational status: employed 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 How often do you have a drink containing alcohol?: Never 3. How often do you have six or more drinks on one occasion?: Never Total Score: 0 BRANDON-7 AMB Questionnaire BRANDON-7 Date BRANDON - 7 assessed: 02/02/23 Source: Developed by Drs. Shamar Diaz, Janene Yates, Lavon Serna and colleagues, with an educational lo from [employer]. Review of Systems Const Denies chills, Denies fatigue, Denies fever(s), Denies headache(s) and Denies weakness ENT Denies dizziness and Denies headache(s) Card Denies dyspnea Resp Denies cough, Denies dyspnea, Denies wheezing and Denies other (shortness of breath) Musc Denies numbness and Denies tingling Neuro Denies dizziness, Denies headache(s), Denies numbness, Denies tingling and Denies weakness Psych Denies anxiety and Denies depression Endo Denies fatigue Aller/Immun Denies wheezing Physical exam (Primary Care) Vital Signs: Last Vital Signs Temp 98.7 F 12/06/23 15:41 Pulse 112 H 12/06/23 15:41 Resp 12 12/06/23 15:41 BP 118/88 12/06/23 15:41 Pulse Ox 94 12/06/23 15:41 Oxygen Delivery Method Room Air 12/06/23 15:41 BMI result Body Mass Index 31.9 Tobacco/Smoking Status: Tobacco use Status Tobacco use date assessed 12/06/23 12/06/23 15:47 Patient Tobacco Use Status Former Tobacco user 12/06/23 15:47 Tobacco use type Cigarette 12/06/23 15:47 e-Cigarette/Vaping Use Never Used 12/06/23 15:47 Thrive Assessment: Date of Thrive Assessment Date Thrive assessed 11/19/23 12/06/23 15:47 Const General: well developed; No acute distress Nutritional Appearance: well nourished Orientation/consciousness: patient oriented x3 HENMT Head: Yes normocephalic and Yes atraumatic Eyes General: appearance normal, both eyes and all related structures Pupils: Equal, round and reactive pupils present EOM: EOMs intact bilaterally Resp Effort & Inspection: normal respiratory effort Neuro General: patient oriented x3 and gait normal Cranial nerves: Yes Equal, round and reactive pupils present Psych Affect: normal affect Assessment and Plan Assessment & Plan (1) Gastroenteritis: Code(s): K52.9 - Noninfective gastroenteritis and colitis, unspecified Plan: Recent?gastroenteritis. Eat?small?regular?meals?and?hydrate?well Follow-up?with?book salesman,??Fabian?as?recommended (2) Acute kidney injury: Code(s): N17.9 - Acute kidney failure, unspecified Plan: Patient?had?had?acute?kidney?injury?but?this?had?resolved?by?discharge?from?the? hospital Maintain?good?hydration (3) Left hip pain: Code(s): M25.552 - Pain in left hip Plan: Patient?had?stumbled?due?to?mechanical?trip Did?not?actually?fall?but?mild?muscular?strain?at?left?hip?and?right?shoulder Can?use?Tylenol,?ice?and?heat This?should?improve?gradually (4) Right shoulder pain: Code(s): M25.511 - Pain in right shoulder Plan: As?above (5) Fibromyalgia: Code(s): M79.7 - Fibromyalgia Plan: History?of?fibromyalgia?and?she?says?this?is?fairly?well?treated?with?duloxetine Continue?duloxetine Encouraged?exercise (6) Tachycardia: Code(s): R00.0 - Tachycardia, unspecified Plan: Patient?had?had?sinus?tachycardia?in?the?hospital?due?to?dehydration. Heart?rate?still?increases?with?walking.??Encouraged?her?to?hydrate?well?and?sta rt?getting?regular?exercise Her?heart?rate?did?decrease?into?normal?range?with?relaxation. Coding Level of Care Code Est Pt Level 4 (71887) Diagnoses Gastroenteritis K52.9 Acute kidney injury N17.9 Left hip pain M25.552 Right shoulder pain M25.511 Fibromyalgia M79.7 Tachycardia R00.0
[2023-12-06 15:41] VITALS: BP 118/88; PULSE 112; RESP 12; TEMP 37.1; O2SAT 94; BMI 31.9
[2023-12-06 16:34] VITALS: PULSE 96
== END 2023-12-06 16:34 | disposition home or self-care (01) ==
PROVIDERS: PCP Family Medicine; Visit Provider Family Medicine
DX: K52.9 Noninfective gastroenteritis and colitis, unspecified (principal); N17.9 Acute kidney failure, unspecified; M25.552 Pain in left hip; M25.511 Pain in right shoulder; M79.7 Fibromyalgia; R00.0 Tachycardia, unspecified
CPT/HCPCS: 99214

== ENCOUNTER 2023-12-31 16:10 | Outpatient (REF) | payer OTHER, SELFPAY ==
--- NOTE | ~2023-12-31 | CT_ITS ---
EXAMINATION: CT ABDOMEN AND PELVIS WITHOUT CONTRAST CLINICAL INFORMATION: Parastomal hernia without obstruction or gangrene. COMPARISON: CT abdomen and pelvis 11/02/2022. TECHNIQUE: Multidetector volumetric imaging was performed from the superior aspect of the liver through the pubic symphysis. Sagittal and coronal reformatted images were obtained on the technologist's workstation. This CT examination was performed using dose optimization techniques as appropriate, variously including the following: *Automated exposure control *Adjustment of mA and/or kV according to patient size (this includes techniques or standardized protocols for targeted exams where dose is matched to indication/reason for exam; i.e. extremities or head) *Use of iterative reconstruction technique DLP: 577 mGy-cm FINDINGS: LUNG BASES: The visualized lung bases are unremarkable. The right hemidiaphragm is again noted to be elevated. Previously seen small right-sided pleural effusion has resolved. LIVER, GALLBLADDER, AND BILIARY TREE: The liver is enlarged at 21.5 cm in greatest length and demonstrates marked hepatic steatosis. No focal hepatic lesion or biliary ductal dilatation is present. Status post cholecystectomy. PANCREAS: Unremarkable. SPLEEN: Unremarkable. PERITONEAL CAVITY: Previously seen perisplenic and perihepatic left upper quadrant lenticular collection with surrounding soft tissue inflammation is no longer present. A drain had been present in the peritoneal cavity behind the umbilicus which has subsequently been removed. No residual collection is seen in this region. ADRENAL GLANDS: Unremarkable. KIDNEYS AND URETERS: The kidneys are normal in size, shape, and attenuation. No hydronephrosis, hydroureter, or calculi seen. No perinephric stranding. BLADDER: Empty but unremarkable. GASTROINTESTINAL TRACT: There has been a prior colectomy with a Callie pouch present and right lower quadrant ileostomy. No evidence of bowel obstruction. ABDOMINAL WALL: A small periumbilical hernia is seen containing only fat with a portion of the stomach bulging into this region. Right lower quadrant ileostomy as described above. No parastomal hernia. LYMPH NODES: No retroperitoneal lymphadenopathy. VASCULAR: Unremarkable. PELVIC VISCERA: The uterus and adnexa are unremarkable. OSSEOUS STRUCTURES: Mild degenerative changes are present in the spine. Minimal grade 1 anterolisthesis L4 upon L5. CT/CT abdomen pelvis wo IV con IMPRESSION: 1. Enlarged fatty liver. 2. Status post colectomy with right lower quadrant ileostomy. 3. Resolved peritoneal fluid collections with removal of all drains. 4. Small periumbilical hernia containing only fat with a portion of the stomach bulging into this region. 5. Other incidental findings as described above. Fleischner guidelines were followed.
== END 2023-12-31 16:11 | disposition home or self-care (01) ==
LOC: HO.CT 16:10
PROVIDERS: PCP Family Medicine; Visit Provider Surgery
DX: K43.5 Parastomal hernia without obstruction or gangrene (principal)
CPT/HCPCS: 74176

== ENCOUNTER → 2024-01-30 15:56 | Outpatient (BNVA) | payer OTHER, SELFPAY | PROVIDERS: PCP Family Medicine; Visit Provider Surgery ==

== ENCOUNTER 2024-01-30 16:08 | Outpatient (AMB) | payer OTHER, SELFPAY ==
[2024-01-30 15:57] VITALS: BMI 32.8
--- NOTE | 2024-01-30 15:57 | MHC.OFFVIS ---
Vital Signs 01/30/24 15:57 Height 5 ft 3 in Weight 185 lb BMI 32.8 Intake Visit Reasons: 2 month follow-up ostomy check Intake Note: This patient presents for a two month follow-up assessment for ostomy check. Patient c/o; reports no complaints. Graffiti Cleaner Required: No Accompanied by: Self / Same As Patient Allergies omeprazole [OMEPRAZOLE] Allergy (Severe, Verified 01/30/24 16:08) N/V tramadol [From Ultram] Allergy (Intermediate, Verified 01/30/24 16:08) ITCHING ibuprofen [From Motrin] Allergy (Verified 01/30/24 16:08) Unknown Medication List - Last Reconciled 01/30/24 by Deandre Hagan MD cholecalciferol (vitamin D3) 25 mcg PO DAILY duloxetine 20 mg PO BID 30 days fremanezumab-vfrm (Ajovy Syringe) 225 mg subcut Q30D loratadine (Claritin) 10 mg PO DAILY magnesium oxide 800 mg PO BIDPC methocarbamol 750 mg PO TID [id number]-FA-vit K-lut 8 mg iron-400 mcg-50 mcg (Centrum Silver Women) 1 tab PO DAILY ondansetron 1 tab PO DAILY PRN pantoprazole 40 mg PO DAILY rizatriptan 1 tab PO DAILY PRN HPI HPI 2 month follow-up ostomy check: Details: She is here for follow-up for her stoma as well as after I had sent her CT scan. She had complained of a hernia which appeared to be right next to her stoma. She had a CAT scan and she is here to discuss this She denies any complaints at this time. She says her stoma has been functioning well. She did have problems with the stoma adhesive 2 weeks ago but she had this resolved. She has good oral intake [facility] Medical History (Updated 01/30/24 @ 16:20 by Deandre Hagan MD) Incisional hernia Parastomal hernia Subcutaneous abscess Seborrheic dermatitis Migraines Fatty liver disease, nonalcoholic Sinusitis Ileostomy in place Dizziness Recurrent vomiting Gastroparesis Intra-abdominal abscess Intra-abdominal abscess Fever of unknown origin Leukocytosis Shock Perforated viscus COVID-19 vaccine series completed Environmental allergies PONV (postoperative nausea and vomiting) Thoracic disc herniation Herniated cervical disc Back pain Fibromyalgia Hx of migraines Crohn's disease Iron deficiency anemia Carpal tunnel syndrome Arthritis Vitamin D deficiency GERD (gastroesophageal reflux disease) Surgical History S/P colectomy Status post colostomy Hx of shoulder surgery History of surgery Hx of fusion of cervical spine Hx of cholecystectomy History of tonsillectomy History of esophagogastroduodenoscopy (EGD) History of tubal ligation Hx of colonoscopy Family History Paternal Grandmother High blood pressure High cholesterol Mother Throat cancer Alcoholism Maternal Grandmother Breast cancer Paternal Grandfather Prostate cancer Family/Other High blood pressure Social History Household Members: Spouse and Family Household Members Other:: Stepson Housing: House Are you a primary care navigator to a significant other at home: No Do you presently have visiting nurse or other home services: No Unable to assess alcohol history related to: Unknown Alcohol intake: former Comment: restraints Patient Tobacco Use Status: Former Tobacco user Quit Date: 23 years ago Tobacco use type: Cigarette e-Cigarette/Vaping Use: Never Used Second Hand Smoke Exposure: No Advance Directives Date on File: 08/08/22 service: No Current occupational status: employed 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 @ [employer] Cognitive needs: No Hearing needs: No Vision needs: No Review of Systems Const Denies chills and Denies fever(s) Card Denies chest pain, Denies dyspnea and Denies dyspnea on exertion Resp Denies cough, Denies dyspnea and Denies dyspnea on exertion GI Denies hematochezia and Denies change in bowel habits Denies hematuria Musc Denies back pain and Denies limited range of motion Neuro Denies focal weakness and Denies convulsions Psych Denies depression and Denies mood swings Physical Exam Vital Signs: BMI result Body Mass Index 32.8 Const General: comfortable and no acute distress Resp Effort & Inspection: normal respiratory effort GI Other: Stoma functioning well, palpable hernia to the left of the stoma near the midline, obvious with Valsalva, reducible Assessment & Plan Assessment & Plan (1) Incisional hernia: Code(s): K43.2 - Incisional hernia without obstruction or gangrene Category: Medical Plan: Review of her CT scan actually shows that the hernias in the midline extending to the right this is not coming from the stoma itself. She wants this repaired eventually but is unable to have the time to do this now. She says that she will have to switch health insurance as her just got laid off from work She says she will call me down the line when she is ready to schedule for surgery. Otherwise her stoma is functioning well. Coding Level of Care Code Est Pt Level 3 (05072) Diagnoses Incisional hernia K43.2
== END 2024-01-30 16:50 ==
PROVIDERS: PCP Family Medicine; Visit Provider Surgery
DX: K43.2 Incisional hernia without obstruction or gangrene (principal)
CPT/HCPCS: 99213

== ENCOUNTER 2024-04-23 12:51 | Outpatient (REF) | payer OTHER, SELFPAY ==
[2024-04-23 14:42] LABS: Appearance Urine Clear; Color Urine Yellow; Glucose Urine UA Negative (Negative); Leukocyte Esterase Urine Negative (Negative); Nitrite Urine Negative (Negative); PH 5.5 (5.0-9.0); Urine Blood Negative (Negative); Urine Ketones Negative (Negative); Urine Protein Negative (Neg-Trace)
[2024-04-23 14:43] LABS: Basophils Percent Auto 0.4 % (0-2); Eosinophils Absolute Auto 0.1 X10*3/uL (0.0-0.4); Eosinophils Percent Auto 0.9 % (0-4); Hematocrit 38.1 % (37.0-47.0); Hemoglobin 13.6 g/dl (12.0-16.0); Imm Gran Abs Auto 0.03 X10*3/uL (0.00-0.03); Imm Gran Pct Auto 0.4 % (0.0-0.4); Lymphocytes Absolute Auto 2.4 X10*3/uL (1.2-4.9); Lymphocytes Percent Auto 34.7 % (20-40); MANUAL DIFF FLAG NO; Mean Corpuscular HGB Conc 35.7 g/dl (31.0-35.0); Mean Corpuscular Hemoglobin 32.4 pg (27.0-33.0); Mean Corpuscular Volume 90.7 fL (80.0-98.0); Mean Platelet Volume 9.7 fL (9.4-12.3); Monocytes Absolute Auto 0.5 X10*3/uL (0.1-1.2); Monocytes Percent Auto 6.6 % (2-11); Neutrophils Absolute Auto 3.9 x10*3/uL (2.0-8.3); Platelet Count 195 X10*3/uL (160-400); Red Cell Distribution Width 12.3 % (11.0-16.0); White Blood Count 6.8 X10*3/uL (4.8-10.8)
[2024-04-23 14:55] LABS: Creatinine Urine 91.24 mg/dL; Microalbum/Creatinine Ratio Ur 15.3 ug/mg cr (<30)
[2024-04-23 14:55] LABS: Alanine Aminotransferase 55 U/L (0-31); Albumin Level 4.1 g/dL (3.5-5.0); Alkaline Phosphatase 175 U/L (39-117); Anion Gap 12 (12-20); Aspartate Amino Transferase 45 U/L (5-31); Bilirubin Total 0.4 mg/dL (0.0-1.0); Blood Urea Nitrogen 17 mg/dL (9-16); C Reactive Protein 1.16 mg/dL (< or = 0.50); Calcium 9.8 mg/dL (8.4-10.2); Carbon Dioxide 28 mmol/L (22-29); Chloride 103 mmol/L (96-108); Estimated Glomerular Filt Rate > 60; Glucose Random 129 mg/dL (60-115); Magnesium 1.9 mg/dL (1.6-2.6); Sodium 139 mmol/L (135-145); Total Protein 7.2 g/dL (6.5-8.0)
[2024-04-23 15:10] LABS: Erythrocyte Sedimentation Rate 33 MM/HR (0-20); TSH reflex Free T4 0.93 uIU/mL (0.32-4.0)
== END 2024-04-23 12:52 | disposition home or self-care (01) ==
LOC: HO.WFDLDS 12:51
PROVIDERS: Internal Medicine Rheumatology; Visit Provider Family Medicine
DX: Z00.00 Encounter for general adult medical examination without abnormal findings (principal); I10 Essential (primary) hypertension; M06.4 Inflammatory polyarthropathy; I73.00 Raynaud's syndrome without gangrene; E83.42 Hypomagnesemia
CPT/HCPCS: 36415; 80053; 81003; 82043; 82570; 83735; 84443; 85025; 85652; 86140

== ENCOUNTER 2024-04-28 07:53 | Outpatient (REF) | payer OTHER, SELFPAY ==
[2024-04-28 11:45] LABS: MANUAL DIFF FLAG NO
[2024-04-28 11:51] LABS: Basophils Percent Auto 0.6 % (0-2); Eosinophils Absolute Auto 0.1 X10*3/uL (0.0-0.4); Eosinophils Percent Auto 0.9 % (0-4); Hematocrit 40.5 % (37.0-47.0); Hemoglobin 13.8 g/dl (12.0-16.0); Imm Gran Abs Auto 0.02 X10*3/uL (0.00-0.03); Imm Gran Pct Auto 0.3 % (0.0-0.4); Lymphocytes Absolute Auto 1.9 X10*3/uL (1.2-4.9); Lymphocytes Percent Auto 30.3 % (20-40); Mean Corpuscular HGB Conc 34.1 g/dl (31.0-35.0); Mean Corpuscular Hemoglobin 31.9 pg (27.0-33.0); Mean Corpuscular Volume 93.8 fL (80.0-98.0); Mean Platelet Volume 10.3 fL (9.4-12.3); Monocytes Absolute Auto 0.5 X10*3/uL (0.1-1.2); Monocytes Percent Auto 7.3 % (2-11); Neutrophils Absolute Auto 3.8 x10*3/uL (2.0-8.3); Neutrophils Percent Auto 60.6 % (45-73); Platelet Count 215 X10*3/uL (160-400); Red Blood Count 4.32 X10*6/uL (4.20-5.50); Red Cell Distribution Width 12.4 % (11.0-16.0); White Blood Count 6.3 X10*3/uL (4.8-10.8)
[2024-04-28 12:13] LABS: Alanine Aminotransferase 62 U/L (0-31); Albumin Level 3.9 g/dL (3.5-5.0); Alkaline Phosphatase 217 U/L (39-117); Anion Gap 14 (12-20); Aspartate Amino Transferase 46 U/L (5-31); Bilirubin Total 0.3 mg/dL (0.0-1.0); Blood Urea Nitrogen 17 mg/dL (9-16); Calcium 9.4 mg/dL (8.4-10.2); Carbon Dioxide 22 mmol/L (22-29); Chloride 110 mmol/L (96-108); Cholesterol 157 mg/dL (<200); Estimated Glomerular Filt Rate 57; Glucose Fasting 136 mg/dL (60-99); HDL Cholesterol 43 mg/dL (>40); LDL Cholesterol Calculated 70 mg/dL (<100); Potassium 4.4 mmol/L (3.3-5.1); Sodium 142 mmol/L (135-145); Total Protein 7.1 g/dL (6.5-8.0); Triglycerides 220 mg/dL (<150)
[2024-04-28 12:30] LABS: TSH reflex Free T4 1.06 uIU/mL (0.32-4.0)
== END 2024-04-28 07:54 | disposition home or self-care (01) ==
LOC: HO.WFDLDS 07:53
PROVIDERS: Visit Provider Family Medicine
DX: Z00.00 Encounter for general adult medical examination without abnormal findings (principal)
CPT/HCPCS: 36415; 80053; 80061; 84443; 85025

== ENCOUNTER 2024-05-01 11:50 | Outpatient (AMB) | payer OTHER, SELFPAY ==
--- NOTE | 2024-05-01 11:54 | A.OFFPC_ITS ---
Vital Signs 05/01/24 12:02 Height 5 ft 3 in Weight 195 lb 4 oz BMI 34.6 BP 144/80 H Blood Pressure Location Lt brachial Position Sitting Respiration 16 Pulse 91 Pulse Source Pulse Oximeter Temp 98.9 F Temp Source Oral Pulse Oximetry (%) 98 Oxygen Delivery Method Room Air Intake Visit Reasons: CPE with f/u labs and health maint. 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 Required: No Is last menstrual period known: No Post menopausal: No Patient : No Allergies omeprazole [OMEPRAZOLE] Allergy (Severe, Verified 05/01/24 11:57) N/V tramadol [From Ultram] Allergy (Intermediate, Verified 05/01/24 11:57) ITCHING ibuprofen [From Motrin] Allergy (Verified 05/01/24 11:57) Unknown Tobacco use date assessed: 05/01/24 Dental Screening Dental Screen Date: 05/01/24 Did you have a dental visit in the last 12 months?: Yes Did you have a dental problem in the last 6 months where you did not have access to dental care?: No Was dental information given to patient?: Patient has dentist HPI HPI Comments History of Present Illness Details This is a 64-year-old female with a past medical history of fibromyalgia, migraines, depression with anxiety, intra abdominal abscess status post colostomy and obesity presenting for annual physical exam. We reviewed the labs that she completed recently. She is followed by Rheumatology, Dr. Bowie, in [place]. She has mild hypertriglyceridemia. We reviewed lifestyle modifications for this. Her fasting glucose was elevated. Her hemoglobin A1c is 6.3% today. We discussed this is consistent with prediabetes. We discussed lifestyle modifications and diet changes. I referred her to see the dietitian. She will follow up with her PCP in 3 months. Her blood pressure initially was 144/80. It was 136/84 upon recheck. Patient says she was on blood pressure medication years ago, but it was discontinued due to hypotension. She did go out to eat yesterday and had a salty soup. She eats bagels in the morning with orange juice. She likes to have white bread. She does not get a lot of exercise. She would like to see a compressed gas equipment mechanic. She has chronic, bilateral foot pain. No swelling or discoloration. No numbness. We reviewed her immunizations. Patient says she had a Tdap 8 years ago when her grandson was born. She will check with pharmacy about RSV vaccine insurance coverage. Mammogram ordered. She is up-to-date with her annual gynecologic exam and colonoscopy. ROS: Constitutional: No unexplained weight loss, fever, chills, fatigue or night sweats. Eyes: No vision changes, blurry vision, double vision, eye pain, eye redness, eye discharge. ENT: No hearing loss, sneezing, congestion, runny nose or sore throat. Respiratory: No shortness of breath Cardiovascular: No chest pain Gastrointestinal: No abdominal pain or blood in stool. Genitourinary: No dysuria, hematuria, urinary frequency. Neurologic: No tremors, dizziness, syncope Skin: No rash Endocrine: No cold or heat intolerance. No polyuria or polydipsia. Psychiatric: No SI/HI. Physical exam: Constitutional: Alert, in no distress. Eyes: Pupils are equal, round and reactive to light. Extraocular muscles intact. Ear, Nose and Throat: Canals clear. TMs normal. Normal nasal mucosa. No nasal discharge. No oral lesions. Neck: Supple, Full range of motion. No lymphadenopathy. No palpable thyroid masses. Respiratory: Clear to auscultation. Cardiovascular: S1 S2 regular. No murmurs. No carotid bruits. Gastrointestinal: Abdomen soft, non-tender, non-distended. Surgical scar note with adjacent palpable hernia. Neurologic: No focal neurological deficits. Symmetric patellar reflexes. Moves all extremities spontaneously. Sensation intact bilaterally. Skin: No rashes Musculoskeletal: No obvious deformity of the feet. Full range of motion. Extremities: Warm and well perfused. No clubbing, cyanosis or edema. 3+ peripheral pulses bilaterally. Psychiatric: Normal mood and affect REPLACED BY [facility] Medical History (Updated 05/01/24 @ 13:11 by RUSSELL Taylor) Prediabetes Hypertriglyceridemia Elevated blood pressure reading Bilateral foot pain Incisional hernia Parastomal hernia Subcutaneous abscess Seborrheic dermatitis Migraines Fatty liver disease, nonalcoholic Sinusitis Ileostomy in place Dizziness Recurrent vomiting Gastroparesis Intra-abdominal abscess Intra-abdominal abscess Fever of unknown origin Leukocytosis Shock Perforated viscus COVID-19 vaccine series completed Environmental allergies PONV (postoperative nausea and vomiting) Thoracic disc herniation Herniated cervical disc Back pain Fibromyalgia Hx of migraines Crohn's disease Iron deficiency anemia Carpal tunnel syndrome Arthritis Vitamin D deficiency GERD (gastroesophageal reflux disease) Surgical History S/P colectomy Status post colostomy Hx of shoulder surgery History of surgery Hx of fusion of cervical spine Hx of cholecystectomy History of tonsillectomy History of esophagogastroduodenoscopy (EGD) History of tubal ligation Hx of colonoscopy Family History (Updated 05/01/24 @ 12:01 by Chiquita Rosado) Paternal Grandmother High blood pressure High cholesterol Mother Throat cancer Alcoholism Alcohol abuse Maternal Grandmother Breast cancer Paternal Grandfather Prostate cancer Family/Other High blood pressure Father Alcohol abuse Daughter FH: mental illness Social History Household Members: Spouse and Family Household Members Other:: Stepson Housing: House Are you a primary child care director to a significant other at home: No Do you presently have visiting nurse or other home services: No Unable to assess alcohol history related to: Unknown Alcohol intake: former Comment: restraints Patient Tobacco Use Status: Former Tobacco user Tobacco use type: Cigarette e-Cigarette/Vaping Use: Never Used Second Hand Smoke Exposure: No Advance Directives Date on File: 08/08/22 service: No Current occupational status: employed 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 1. Little interest or pleasure in doing things: several days 2. Feeling down, depressed, or hopeless: not at all 3. Trouble falling or staying asleep, or sleeping too much: more than half the days 4. Feeling tired or having little energy: nearly every day 5. Poor appetite or overeating: nearly every day 6. Feeling bad about yourself - or that you are a failure or have let yourself or your family down: several days 7. Trouble concentrating on things, such as reading the newspaper or watching television: several days 8. Moving or speaking so slowly that other people could have noticed. Or the opposite - being so fidgety or restless that you have been moving around a lot more than usual: not at all 9. Thoughts that you would be better off or of hurting yourself in some way: not at all Total score: 11 Depression Screening Interpretation: Positive Depression Screening Follow-up: Existing condition and In treatment Depression Screening Done: Yes 65750 - PHQ-9 Billing: Yes Source: Developed by Drs. Shamar Diaz, Janene Yates, Lavon Serna and colleagues, with an educational lo from [employer]. Thrive Questionnaire Date Thrive assessed: 05/01/24 I am a: Patient What is your living situation today?: I have a steady place to live Within the past 12 months, did the food you bought not last and you didn't have the money to get more?: Never true Do you have trouble paying for medicines?: No Do you have trouble getting transportation to medical appointments?: No Do you have trouble paying your heating and electricity bill?: No Do you have trouble taking care of your child, family member or friend?: No Do you have trouble with day-to-day activities such as bathing, preparing meals, shopping, managing finances, etc.?: No Are you currently unemployed and looking for a job?: No Are you interested in more education?: No Please select the resources that you would like help with: None Currently or been in a relationship where the following occur: No concerns reported THRIVE Score: 0 AUDIT C Alcohol Use Questionnaire (AUDIT-C) 1. How often do you have a drink containing alcohol?: Never Total Score: 0 Score Reviewed/Action Taken: Yes BRANDON-7 AMB Questionnaire BRANDON-7 Date BRANDON - 7 assessed: 05/01/24 Feeling nervous, anxious, or on edge: 0 = Not at all Not being able to stop or control worryin = Not at all Worrying too much about different things: 0 = Not at all Trouble relaxin = Not at all Being so restless that it is hard to sit still: 0 = Not at all Becoming easily annoyed or irritable: 0 = Not at all Feeling afraid as if something awful might happen: 0 = Not at all Total BRANDON-7 score (0-4 normal; 5-9 mild; 10-14 moderate; 15-21 severe): 0 Source: Developed by Janene Henson Kurt Kroenke and colleagues, with an educational ol from [employer]. BRANDON-7 Assessment Billing BRANDON-7 Assessment Tool: BRANDON-7 Assessment 05428 Physical exam (Primary Care) Vital Signs: Last Vital Signs Temp 98.9 F 05/01/24 12:02 Pulse 91 05/01/24 12:02 Resp 16 05/01/24 12:02 BP 144/80 H 05/01/24 12:02 Pulse Ox 98 05/01/24 12:02 Oxygen Delivery Method Room Air 05/01/24 12:02 BMI result Body Mass Index 34.6 Tobacco/Smoking Status: Tobacco use Status Tobacco use date assessed 05/01/24 05/01/24 12:02 Patient Tobacco Use Status Former Tobacco user 05/01/24 11:56 Tobacco use type Cigarette 05/01/24 11:56 e-Cigarette/Vaping Use Never Used 05/01/24 11:56 PHQ-9: PHQ-9 Score PHQ-9: Total score 11 05/01/24 12:49 Depression Screening Interpretation: Positive Depression Screening Follow-up: Existing condition and In treatment Thrive Assessment: Date of Thrive Assessment Date Thrive assessed 05/01/24 05/01/24 12:09 Currently or been in a relationship where the following occur: No concerns reported Results AMB Hemoglobin A1c AMB Hemoglobin A1c 6.3 % Last Edit by Chiquita Rosado on 05/01/24 12:52 Results Reviewed Results Reviewed: Laboratory Last Values Hgb A1c (Clinic) 6.3 % (4.0-6.0) H 05/01/24 12:50 Laboratory Tests 04/23/24 04/28/24 05/01/24 12:26 07:54 12:50 WBC 6.3 RBC 4.32 Hgb 13.8 Plt Count 215 Creatinine 0.92 0.98 Estimated GFR > 60 57 Fasting Glucose 136 H Hgb A1c (Clinic) 6.3 H AST 46 H ALT 62 H Alkaline Phosphatase 217 H Triglycerides 220 H Cholesterol 157 LDL Cholesterol, Calc 70 HDL Cholesterol 43 Assessment and Plan Assessment & Plan (1) Routine physical examination: Code(s): Z00.00 - Encounter for general adult medical examination without abnormal findings (2) Hypertriglyceridemia: Code(s): E78.1 - Pure hyperglyceridemia (3) Elevated blood pressure reading: Code(s): R03.0 - Elevated blood-pressure reading, without diagnosis of hypertension (4) Bilateral foot pain: Code(s): M79.671 - Pain in right foot; M79.672 - Pain in left foot Plan Patient is seen today for a routine physical. As part of this visit we reviewed the following issues, which are considered and essential part of preventative health in this age group: - Breast Cancer screening - Annual Meteorological Equipment Repairer exam - Screening for colon cancer - Blood pressure screening - Cholesterol screening - Osteoporosis prevention including calcium/vitamin D intake, weight bearing exercise & smoking cessation - Nutritional and exercise counseling - Counseling of injury prevention including fire prevention, smoke alarms and seat belt usage - Recommendations about immunizations - Recommendation of an eye exam - Screening for substance abuse Refer to podiatry for foot pain. Refer to dietitian for prediabetes and obesity. Recommended low-sodium diet, avoidance of caffeine and weight loss for elevated blood pressure today. Follow up in 3 months to recheck prediabetes, elevated blood pressure, obesity. Orders: Orders AMB Hemoglobin A1c Today Z13.9 - Encounter for screening, unspecified MM screening mammo BI Today Z12.31 - Encounter for screening mammogram for malignant neoplasm of breast Referrals Podiatry Referral M79.671 - Pain in right foot, M79.672 - Pain in left foot Business Process Coordinator Nutrition Referral E78.1 - Pure hyperglyceridemia, R73.03 - Prediabetes Coding Level of Care Code Est Pt Prev Care 40-64y(97296) Diagnoses Routine physical examination Z00.00 Hypertriglyceridemia E78.1 Elevated blood pressure reading R03.0 Bilateral foot pain M79.671; M79.672 Additional Codes BRANDON-7 Assessment Billing - BRANDON-7 Assessment Tool: BRANDON-7 Assessment [id number] ([id number])
[2024-05-01 12:02] VITALS: BP 144/80; PULSE 91; RESP 16; TEMP 37.2; O2SAT 98; BMI 34.6
== END 2024-05-01 12:46 | disposition home or self-care (01) ==
PROVIDERS: PCP Family Medicine; Visit Provider Physician Assistant Medical
DX: Z00.00 Encounter for general adult medical examination without abnormal findings (principal); E78.1 Pure hyperglyceridemia; R03.0 Elevated blood-pressure reading, without diagnosis of hypertension; M79.671 Pain in right foot; M79.672 Pain in left foot
CPT/HCPCS: 83036; 99396

== ENCOUNTER 2024-05-16 15:22 | Outpatient (REF) | payer OTHER, SELFPAY ==
--- NOTE | ~2024-05-16 | MM_ITS ---
EXAMINATION: MM SCREENING DIGITAL BREAST TOMOSYNTHESIS, BILATERAL CLINICAL INFORMATION: Screening. Asymptomatic. COMPARISON: Mammography: Comparison is made with available priors TECHNIQUE: Digital breast mammography with tomosynthesis is performed in both the craniocaudal and mediolateral oblique views along with computer-aided detection (CAD). FINDINGS: There are scattered areas of fibroglandular density (ACR BI-RADS breast composition Category b). There are no significant masses, abnormal calcifications, or other abnormalities. MM/MM tomosynthesis screening BI IMPRESSION: No mammographic evidence of malignancy. ASSESSMENT: BI-RADS BI-RADS 1 - Negative RECOMMENDATION: Routine annual mammography screening. 1 year F/U This examination should not preclude the clinical evaluation of a suspicious palpable abnormality. This patient's information was entered into a reminder system with a target due date for their next mammogram. Electronically signed by: Marissa Jaramillo DO 06/01/2024 07:02 PM EDT
== END 2024-05-16 15:23 | disposition home or self-care (01) ==
LOC: HO.MAMMO 15:22
PROVIDERS: PCP Family Medicine; Visit Provider Physician Assistant Medical
DX: Z12.31 Encounter for screening mammogram for malignant neoplasm of breast (principal)
CPT/HCPCS: 77063; 77067

== ENCOUNTER → 2024-05-16 15:45 | Outpatient (BNV) | payer OTHER, SELFPAY | PROVIDERS: PCP Family Medicine; Visit Provider Internal Medicine | DX: Z12.31 Encounter for screening mammogram for malignant neoplasm of breast (principal) | CPT/HCPCS: 77063; 77067 ==

== ENCOUNTER 2024-05-29 12:07 | Outpatient (AMB) | payer OTHER, SELFPAY ==
[2024-05-29 12:37] VITALS: BMI 34.2
--- NOTE | 2024-05-29 12:37 | A.OFFVIS_ITS ---
VS Expanded 05/29/24 12:37 06/05/24 12:10 Height 5 ft 3 in 5 ft 3 in Weight 193 lb 5.526 oz 193 lb BMI 34.2 34.2 Intake Visit Reasons: Pre-DM, Pure hyperglyceridemia/CONFIRMED Allergies omeprazole [OMEPRAZOLE] Allergy (Severe, Verified 05/01/24 11:57) N/V tramadol [From Ultram] Allergy (Intermediate, Verified 05/01/24 11:57) ITCHING ibuprofen [From Motrin] Allergy (Verified 05/01/24 11:57) Unknown Nutrition Presentation Details: Pt presents for MNT for Hypertriglyceridemia? and PreDM Pt has an ileostomy for 2 yrs Food frequency fish : not including fruits: 1-2 /day juices dairy: choosing lactose free ve-3 x/wk starches> 20 /d beverages: water/juices/coffee physical activity: daily life activities etoh/smoking: ---- BS Monitoring Most Recent Diabetes Results: Microalb/Creat Ratio 15.3 ug/mg cr (<30) 04/23/24 Cholesterol 157 mg/dL (<200) 04/28/24 HDL Cholesterol 43 mg/dL (>40) 04/28/24 Triglycerides 220 mg/dL (<150) H 04/28/24 Creatinine 0.98 mg/dL (0.5-1.4) 04/28/24 Blood Urea Nitrogen 17 mg/dL (9-16) H 04/28/24 Sodium 142 mmol/L (135-145) 04/28/24 Potassium 4.4 mmol/L (3.3-5.1) 04/28/24 Chloride 110 mmol/L (96-108) H 04/28/24 Carbon Dioxide 22 mmol/L (22-29) 04/28/24 Calcium 9.4 mg/dL (8.4-10.2) 04/28/24 AST 46 U/L (5-31) H 04/28/24 ALT 62 U/L (0-31) H 04/28/24 Total Protein 7.1 g/dL (6.5-8.0) 04/28/24 Albumin 3.9 g/dL (3.5-5.0) 04/28/24 EBW-Bcbbrdn-Gi.Jeor Equation Height: 5 ft 3 in Weight: 193 lb Resting Metabolic Rate: 1403.72 Calculated Activity Level: Sedentary Calories Needed to Maintain Weight: 1684.46 Diagnosis Nutrition problem #1: food nutri know defi As related to (etiology) #1: diagnosis As evidenced by (sign/symptom) #1: knowledge deficit of diet [facility] Medical History (Updated 06/05/24 @ 12:16 by Amber Rivero, RD, LDN) Prediabetes Hypertriglyceridemia Elevated blood pressure reading Bilateral foot pain Incisional hernia Parastomal hernia Subcutaneous abscess Seborrheic dermatitis Migraines Fatty liver disease, nonalcoholic Sinusitis Ileostomy in place Dizziness Recurrent vomiting Gastroparesis Intra-abdominal abscess Intra-abdominal abscess Fever of unknown origin Leukocytosis Shock Perforated viscus COVID-19 vaccine series completed Environmental allergies PONV (postoperative nausea and vomiting) Thoracic disc herniation Herniated cervical disc Back pain Fibromyalgia Hx of migraines Crohn's disease Iron deficiency anemia Carpal tunnel syndrome Arthritis Vitamin D deficiency GERD (gastroesophageal reflux disease) Surgical History S/P colectomy Status post colostomy Hx of shoulder surgery History of surgery Hx of fusion of cervical spine Hx of cholecystectomy History of tonsillectomy History of esophagogastroduodenoscopy (EGD) History of tubal ligation Hx of colonoscopy Family History (Updated 05/01/24 @ 12:01 by Chiquita Rosado) Paternal Grandmother High blood pressure High cholesterol Mother Throat cancer Alcoholism Alcohol abuse Maternal Grandmother Breast cancer Paternal Grandfather Prostate cancer Family/Other High blood pressure Father Alcohol abuse Daughter FH: mental illness Social History Household Members: Spouse and Family Household Members Other:: Stepson Housing: House Are you a primary care professionals to a significant other at home: No Do you presently have visiting nurse or other home services: No Unable to assess alcohol history related to: Unknown Alcohol intake: former Comment: restraints Patient Tobacco Use Status: Former Tobacco user Tobacco use type: Cigarette e-Cigarette/Vaping Use: Never Used Second Hand Smoke Exposure: No Advance Directives Date on File: 08/08/22 service: No Current occupational status: employed 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 @ [employer] Cognitive needs: No Hearing needs: No Vision needs: No Assessment & Plan Assessment & Plan (1) Prediabetes: Comment: with hypertriglyceridemia Code(s): R73.03 - Prediabetes Category: Medical Plan: Wt: 88 Kg ( 06/03 ) Est kcal needs as per MSJ: 1700 (40% carb, 30% protein/fat) Est fluid needs as per 25-30 ml/d: 2600 Est prot per day as per 1 g/kg bw: 88 Recommend fiber intake : 8-10 g per day and gradually increase to 25-28 g per day for women and 35-38 g for men or as tolerated Recommend sodium intake per day : less than 2300 mg Educated patient on: ( R = reviewed V = verbalizes understanding N/R = needs review N/A = not applicable * Food sources of carbohydrate, adequate serving sizes and its role in various health conditions: R * Differences between complex carbohydrates a simple carbohydrates, role of fiber in diet: R V N/R * Lean protein sources of foods: R * Differences between types of fats and role in diet (mono on saturated fat fatty acids, saturated fatty acids, trans fats): R V N/R * Food sources of sodium in salt and healthy modifications for heart health in kidney health: R V R/V * Vitamins and minerals: R V N/R * Healthy plate method concept: R V N/R * Physical activity: Benefits a precaution: R V N/R * Dietary prevention of Hyperglycemia: R Patient Instructions: Choose a glucerna hunger control as snack at bedtime Work on reducing sugars (pastries and similar food), carb per snack 20 g or less and limit snack to 3 a day Work on balancing meals following healthy plat eethod- see meal ideas Coding Level of Care Code Nutr Indiv Intake (34048) Diagnoses Prediabetes R73.03 Time Spent (min) 30
[2024-06-05 12:10] VITALS: BMI 34.2
== END 2024-05-29 13:06 | disposition home or self-care (01) ==
PROVIDERS: PCP Family Medicine; Visit Provider Dietitian, Registered
DX: R73.03 Prediabetes (principal)

== ENCOUNTER → 2024-05-29 12:07 | Outpatient (BNVA) | payer OTHER, SELFPAY | PROVIDERS: PCP Family Medicine; Visit Provider Dietitian, Registered | DX: R73.03 Prediabetes (principal) | CPT/HCPCS: 97802 ==

== ENCOUNTER 2024-06-30 09:04 | Outpatient (AMB) | payer OTHER, SELFPAY ==
--- NOTE | 2024-06-30 09:06 | MHC.OFFVIS ---
Vital Signs 06/30/24 09:12 Height 5 ft 2 in Weight 193 lb BMI 35.3 BP 146/83 H Blood Pressure Location Lt brachial Position Sitting Pulse 91 Intake Visit Reasons: poss hernia Intake Note: This patient presents for possible hernia, Colostomy in place. Pt c/o; here to discuss hernia surgery, hernia above the belly button had discuss with on last visit, discomfort, had CT scan done Batter Depositor Required: No Accompanied by: Self / Same As Patient Allergies omeprazole [OMEPRAZOLE] Allergy (Severe, Verified 06/30/24 09:12) N/V tramadol [From Ultram] Allergy (Intermediate, Verified 06/30/24 09:12) ITCHING ibuprofen [From Motrin] Allergy (Verified 06/30/24 09:12) Unknown Medication List - Last Reconciled 06/30/24 by Deandre Hagan MD duloxetine 20 mg PO BID 30 days fremanezumab-vfrm (Ajovy Syringe) 225 mg subcut Q30D loratadine (Claritin) 10 mg PO DAILY magnesium oxide 800 mg PO BIDPC methocarbamol 750 mg PO TID hvstxmtb-hbt-tnmu-FA-vit K-lut 8 mg iron-400 mcg-50 mcg (Centrum Silver Women) 1 tab PO DAILY ondansetron 1 tab PO DAILY PRN pantoprazole 40 mg PO DAILY rizatriptan 1 tab PO DAILY PRN HPI HPI poss hernia: Details: She is here for follow-up for her incisional hernia. She has a history of Callie's procedure and the subtotal colectomy 2 years ago. She has had an ileostomy. She continues to have ileostomy function She describes that her hernia near the level of the umbilicus bothers her occasionally when she bends over. Otherwise she has no GI complaints. She says that she has been diagnosed to be prediabetic. [facility]LY [facility] Medical History Prediabetes Hypertriglyceridemia Elevated blood pressure reading Bilateral foot pain Incisional hernia Parastomal hernia Subcutaneous abscess Seborrheic dermatitis Migraines Fatty liver disease, nonalcoholic Sinusitis Ileostomy in place Dizziness Recurrent vomiting Gastroparesis Intra-abdominal abscess Intra-abdominal abscess Fever of unknown origin Leukocytosis Shock Perforated viscus COVID-19 vaccine series completed Environmental allergies PONV (postoperative nausea and vomiting) Thoracic disc herniation Herniated cervical disc Back pain Fibromyalgia Hx of migraines Crohn's disease Iron deficiency anemia Carpal tunnel syndrome Arthritis Vitamin D deficiency GERD (gastroesophageal reflux disease) Surgical History S/P colectomy Status post colostomy Hx of shoulder surgery History of surgery Hx of fusion of cervical spine Hx of cholecystectomy History of tonsillectomy History of esophagogastroduodenoscopy (EGD) History of tubal ligation Hx of colonoscopy Family History Paternal Grandmother High blood pressure High cholesterol Mother Throat cancer Alcoholism Alcohol abuse Maternal Grandmother Breast cancer Paternal Grandfather Prostate cancer Family/Other High blood pressure Father Alcohol abuse Daughter FH: mental illness Social History Household Members: Spouse and Family Household Members Other:: Stepson Housing: House Are you a primary primary health care nurse to a significant other at home: No Do you presently have visiting nurse or other home services: No Unable to assess alcohol history related to: Unknown Alcohol intake: former Comment: restraints Patient Tobacco Use Status: Former Tobacco user Tobacco use type: Cigarette e-Cigarette/Vaping Use: Never Used Second Hand Smoke Exposure: No Advance Directives Date on File: 08/08/22 service: No Current occupational status: employed 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 @ [employer] Cognitive needs: No Hearing needs: No Vision needs: No Review of Systems Const Denies chills and Denies fever(s) Card Denies chest pain, Denies dyspnea and Denies dyspnea on exertion Resp Denies cough, Denies dyspnea and Denies dyspnea on exertion GI Details: Has ileostomy Denies hematochezia and Denies change in bowel habits Denies hematuria Musc Denies back pain and Denies limited range of motion Neuro Denies focal weakness and Denies convulsions Psych Denies depression and Denies mood swings Physical Exam Vital Signs: Last Vital Signs Pulse 91 06/30/24 09:12 BP 146/83 H 06/30/24 09:12 BMI result Body Mass Index 35.3 Const Other: Appears obese General: comfortable and no acute distress Resp Effort & Inspection: normal respiratory effort Cardio Rate: regular rate GI Other: Ileostomy functioning well, hernia palpable reducible on the area above the umbilicus, fascial defect appears to be about 5 cm Palpation (GI): Soft to palpation, not firm and nontender Assessment & Plan Assessment & Plan (1) Incisional hernia: Code(s): K43.2 - Incisional hernia without obstruction or gangrene Category: Medical Plan: She has an incisional hernia as described above. This is reducible. She describes occasional pain when bending over. Her stoma continues to function well. She is planning to have this hernia repaired down the line. She is planning to have this done in September. I advised her on the benefits of weight loss prior to the procedure I will see her again in the office in August, to discuss and review this. Coding Level of Care Code Est Pt Level 3 (21355) Diagnoses Incisional hernia K43.2
[2024-06-30 09:12] VITALS: BP 146/83; PULSE 91; BMI 35.3
== END 2024-06-30 09:29 | disposition home or self-care (01) ==
PROVIDERS: PCP Family Medicine; Visit Provider Surgery
DX: K43.2 Incisional hernia without obstruction or gangrene (principal)
CPT/HCPCS: 99213

== ENCOUNTER → 2024-06-30 09:04 | Outpatient (BNVA) | payer OTHER, SELFPAY | PROVIDERS: PCP Family Medicine; Visit Provider Surgery | DX: K43.2 Incisional hernia without obstruction or gangrene (principal) | CPT/HCPCS: 99212 ==

== ENCOUNTER 2024-07-14 09:37 | Outpatient (AMB) | payer OTHER, SELFPAY ==
--- NOTE | 2024-07-14 10:05 | MHC.AMNUTRGE ---
VS Expanded 07/14/24 10:06 Height 5 ft 2 in Weight 193 lb 5.526 oz BMI 35.4 Intake Visit Reasons: Pre-DM/CONFIRMED Allergies omeprazole [OMEPRAZOLE] Allergy (Severe, Verified 06/30/24 09:12) N/V tramadol [From Ultram] Allergy (Intermediate, Verified 06/30/24 09:12) ITCHING ibuprofen [From Motrin] Allergy (Verified 06/30/24 09:12) Unknown Nutrition Presentation Details: Pt presents for MNT f/u for Pre DM Pt has colestomy in place Pt reports having a variety of foods and choosing lower sugar beverages. Enjoys sweets leading to challenges in reduction - reading food labels - on and off Pt has hx of Callie's procedure, colectomy in 2021, BS Monitoring Most Recent Diabetes Results: Microalb/Creat Ratio 15.3 ug/mg cr (<30) 04/23/24 Cholesterol 157 mg/dL (<200) 04/28/24 HDL Cholesterol 43 mg/dL (>40) 04/28/24 Triglycerides 220 mg/dL (<150) H 04/28/24 Creatinine 0.98 mg/dL (0.5-1.4) 04/28/24 Blood Urea Nitrogen 17 mg/dL (9-16) H 04/28/24 Sodium 142 mmol/L (135-145) 04/28/24 Potassium 4.4 mmol/L (3.3-5.1) 04/28/24 Chloride 110 mmol/L (96-108) H 04/28/24 Carbon Dioxide 22 mmol/L (22-29) 04/28/24 Calcium 9.4 mg/dL (8.4-10.2) 04/28/24 AST 46 U/L (5-31) H 04/28/24 ALT 62 U/L (0-31) H 04/28/24 Total Protein 7.1 g/dL (6.5-8.0) 04/28/24 Albumin 3.9 g/dL (3.5-5.0) 04/28/24 [facility] Medical History Prediabetes Hypertriglyceridemia Elevated blood pressure reading Bilateral foot pain Incisional hernia Parastomal hernia Subcutaneous abscess Seborrheic dermatitis Migraines Fatty liver disease, nonalcoholic Sinusitis Ileostomy in place Dizziness Recurrent vomiting Gastroparesis Intra-abdominal abscess Intra-abdominal abscess Fever of unknown origin Leukocytosis Shock Perforated viscus COVID-19 vaccine series completed Environmental allergies PONV (postoperative nausea and vomiting) Thoracic disc herniation Herniated cervical disc Back pain Fibromyalgia Hx of migraines Crohn's disease Iron deficiency anemia Carpal tunnel syndrome Arthritis Vitamin D deficiency GERD (gastroesophageal reflux disease) Surgical History S/P colectomy Status post colostomy Hx of shoulder surgery History of surgery Hx of fusion of cervical spine Hx of cholecystectomy History of tonsillectomy History of esophagogastroduodenoscopy (EGD) History of tubal ligation Hx of colonoscopy Family History Paternal Grandmother High blood pressure High cholesterol Mother Throat cancer Alcoholism Alcohol abuse Maternal Grandmother Breast cancer Paternal Grandfather Prostate cancer Family/Other High blood pressure Father Alcohol abuse Daughter FH: mental illness Social History Household Members: Spouse and Family Household Members Other:: Stepson Housing: House Are you a primary childcare center administrator to a significant other at home: No Do you presently have visiting nurse or other home services: No Unable to assess alcohol history related to: Unknown Alcohol intake: former Comment: restraints Patient Tobacco Use Status: Former Tobacco user Tobacco use type: Cigarette e-Cigarette/Vaping Use: Never Used Second Hand Smoke Exposure: No Advance Directives Date on File: 08/08/22 service: No Current occupational status: employed 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 @ [employer] Cognitive needs: No Hearing needs: No Vision needs: No Assessment & Plan Assessment & Plan (1) Prediabetes: Comment: with hypertriglyceridemia Code(s): R73.03 - Prediabetes Category: Medical Plan: Wt: 88 Kg ( 06/03 ) Est kcal needs as per MSJ: 1700 (40% carb, 30% protein/fat) Est fluid needs as per 25-30 ml/d: 2600 Est prot per day as per 1 g/kg bw: 88 Recommend fiber intake : 8-10 g per day and gradually increase to 25-28 g per day for women and 35-38 g for men or as tolerated Recommend sodium intake per day : less than 2300 mg Educated patient on: ( R = reviewed V = verbalizes understanding N/R = needs review N/A = not applicable Food sources of carbohydrate, adequate serving sizes and its role in various health conditions: R Differences between complex carbohydrates a simple carbohydrates, role of fiber in diet: R V N/R Lean protein sources of foods: R Differences between types of fats and role in diet (mono on saturated fat fatty acids, saturated fatty acids, trans fats): R Food sources of sodium in salt and healthy modifications for heart health in kidney health: R V R/V Vitamins and minerals: R V N/R Healthy plate method concept: R V N/R Physical activity: Benefits a precaution: R V N/R Dietary prevention of Hyperglycemia: R Patient Instructions: Continue working on reducing sugars (from pastries, sugary snacks, cookies) Try a funmi meal replacement once/day Coding Level of Care Code Nutr Indiv Subseq (19082) Diagnoses Prediabetes R73.03 Time Spent (min) 30
[2024-07-14 10:06] VITALS: BMI 35.4
== END 2024-07-14 10:32 | disposition home or self-care (01) ==
LOC: HO.ENCR 09:37
PROVIDERS: PCP Family Medicine; Visit Provider Dietitian, Registered
DX: R73.03 Prediabetes (principal)

== ENCOUNTER → 2024-07-14 09:37 | Outpatient (BNVA) | payer OTHER, SELFPAY | PROVIDERS: PCP Family Medicine; Visit Provider Dietitian, Registered | DX: R73.03 Prediabetes (principal) | CPT/HCPCS: 97803 ==

== ENCOUNTER 2024-07-24 08:02 | Outpatient (REF) | payer OTHER, SELFPAY ==
[2024-07-24 11:02] LABS: MANUAL DIFF FLAG NO
[2024-07-24 11:15] LABS: Basophils Percent Auto 0.6 % (0-2); Eosinophils Absolute Auto 0.1 X10*3/uL (0.0-0.4); Eosinophils Percent Auto 1.1 % (0-4); Hematocrit 42.2 % (37.0-47.0); Hemoglobin 14.8 g/dl (12.0-16.0); Imm Gran Abs Auto 0.04 X10*3/uL (0.00-0.03); Imm Gran Pct Auto 0.6 % (0.0-0.4); Lymphocytes Absolute Auto 1.9 X10*3/uL (1.2-4.9); Lymphocytes Percent Auto 29.1 % (20-40); Mean Corpuscular HGB Conc 35.1 g/dl (31.0-35.0); Mean Corpuscular Hemoglobin 32.2 pg (27.0-33.0); Mean Corpuscular Volume 91.9 fL (80.0-98.0); Mean Platelet Volume 10.2 fL (9.4-12.3); Monocytes Absolute Auto 0.4 X10*3/uL (0.1-1.2); Neutrophils Absolute Auto 4.2 x10*3/uL (2.0-8.3); Neutrophils Percent Auto 62.6 % (45-73); Platelet Count 208 X10*3/uL (160-400); Red Blood Count 4.59 X10*6/uL (4.20-5.50); Red Cell Distribution Width 12.1 % (11.0-16.0); White Blood Count 6.7 X10*3/uL (4.8-10.8)
[2024-07-24 11:42] LABS: Alanine Aminotransferase 81 U/L (0-31); Albumin Level 4.1 g/dL (3.5-5.0); Alkaline Phosphatase 192 U/L (39-117); Anion Gap 11 (12-20); Aspartate Amino Transferase 58 U/L (5-31); Bilirubin Total 0.4 mg/dL (0.0-1.0); Blood Urea Nitrogen 20 mg/dL (9-16); Calcium 9.3 mg/dL (8.4-10.2); Carbon Dioxide 28 mmol/L (22-29); Chloride 105 mmol/L (96-108); Cholesterol 161 mg/dL (<200); Estimated Glomerular Filt Rate 52; Glucose Fasting 138 mg/dL (60-99); HDL Cholesterol 44 mg/dL (>40); LDL Cholesterol Calculated 78 mg/dL (<100); Potassium 4.3 mmol/L (3.3-5.1); Sodium 140 mmol/L (135-145); Total Protein 7.4 g/dL (6.5-8.0); Triglycerides 195 mg/dL (<150)
[2024-07-24 11:52] LABS: Appearance Urine Clear; Color Urine Yellow; Glucose Urine UA Negative (Negative); Leukocyte Esterase Urine Negative (Negative); Nitrite Urine Negative (Negative); Urine Blood Negative (Negative); Urine Ketones Negative (Negative); Urine Protein Negative (Neg-Trace)
[2024-07-24 12:01] LABS: TSH reflex Free T4 1.43 uIU/mL (0.32-4.0)
[2024-07-24 12:14] LABS: Creatinine Urine 114.65 mg/dL; Microalbum/Creatinine Ratio Ur 5.2 ug/mg cr (<30)
== END 2024-07-24 08:03 | disposition home or self-care (01) ==
LOC: HO.WFDLDS 08:02
PROVIDERS: Visit Provider Family Medicine
DX: Z00.00 Encounter for general adult medical examination without abnormal findings (principal); I10 Essential (primary) hypertension
CPT/HCPCS: 36415; 80053; 80061; 81003; 82043; 82570; 84443; 85025

== ENCOUNTER 2024-07-30 09:14 | Outpatient (AMB) | payer OTHER, SELFPAY ==
--- NOTE | 2024-07-30 09:20 | A.OFFPC_ITS ---
Vital Signs 07/30/24 09:28 Height 5 ft 2 in Weight 193 lb 2 oz BMI 35.3 BP 106/78 Blood Pressure Location Rt brachial Position Sitting Respiration 14 Pulse 92 Pulse Source Pulse Oximeter Temp 98.6 F Temp Source Oral Pulse Oximetry (%) 94 Oxygen Delivery Method Room Air Intake Visit Reasons: Dr. Bonilla BP recheck Intake Note: PreDM,HTN f/u Allergies omeprazole [OMEPRAZOLE] Allergy (Severe, Verified 07/30/24 09:26) N/V tramadol [From Ultram] Allergy (Intermediate, Verified 07/30/24 09:26) ITCHING ibuprofen [From Motrin] Allergy (Verified 07/30/24 09:26) Unknown Tobacco use date assessed: 05/01/24 Dental Screening Dental Screen Date: 05/01/[address] Bonilla BP recheck HPI0 Details 64 y/o female presents to f/u chronic co nditions. Blood pressure today 106/78, 92p. Had been high before in a couple readings with a reading of 140s systolic range. Does not have a way to check her blood pressure at home. Hx of pre-diabetes. Notes some lightheadedness. Reports some chest discomfort on deep inspiration. PFSH Medical History Prediabetes Hypertriglyceridemia Elevated blood pressure reading Bilateral foot pain Incisional hernia Parastomal hernia Subcutaneous abscess Seborrheic dermatitis Migraines Fatty liver disease, nonalcoholic Sinusitis Ileostomy in place Dizziness Recurrent vomiting Gastroparesis Intra-abdominal abscess Intra-abdominal abscess Fever of unknown origin Leukocytosis Shock Perforated viscus COVID-19 vaccine series completed Environmental allergies PONV (postoperative nausea and vomiting) Thoracic disc herniation Herniated cervical disc Back pain Fibromyalgia Hx of migraines Crohn's disease Iron deficiency anemia Carpal tunnel syndrome Arthritis Vitamin D deficiency GERD (gastroesophageal reflux disease) Surgical History S/P colectomy Status post colostomy Hx of shoulder surgery History of surgery Hx of fusion of cervical spine Hx of cholecystectomy History of tonsillectomy History of esophagogastroduodenoscopy (EGD) History of tubal ligation Hx of colonoscopy Family History Paternal Grandmother High blood pressure High cholesterol Mother Throat cancer Alcoholism Alcohol abuse Maternal Grandmother Breast cancer Paternal Grandfather Prostate cancer Family/Other High blood pressure Father Alcohol abuse Daughter FH: mental illness Social History Household Members: Spouse and Family Household Members Other:: Stepson Housing: House Are you a primary manager respiratory care to a significant other at home: No Do you presently have visiting nurse or other home services: No Unable to assess alcohol history related to: Unknown Alcohol intake: former Comment: restraints Patient Tobacco Use Status: Former Tobacco user Tobacco use type: Cigarette e-Cigarette/Vaping Use: Never Used Second Hand Smoke Exposure: No Advance Directives Date on File: 08/08/22 service: No Current occupational status: employed 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 1. Little interest or pleasure in doing things: not at all 2. Feeling down, depressed, or hopeless: not at all 3. Trouble falling or staying asleep, or sleeping too much: nearly every day 4. Feeling tired or having little energy: nearly every day 5. Poor appetite or overeating: nearly every day 6. Feeling bad about yourself - or that you are a failure or have let yourself or your family down: not at all 7. Trouble concentrating on things, such as reading the newspaper or watching television: several days 8. Moving or speaking so slowly that other people could have noticed. Or the opposite - being so fidgety or restless that you have been moving around a lot more than usual: not at all 9. Thoughts that you would be better off or of hurting yourself in some way: not at all Total score: 10 Source: Developed by Drs. Shamar Diaz, Janene Yates, Lavon Serna and colleagues, with an educational lo from [employer]. Thrive Questionnaire Date Thrive assessed: 05/01/24 I am a: Patient What is your living situation today?: I have a steady place to live Within the past 12 months, did the food you bought not last and you didn't have the money to get more?: Never true Within the past 12 months, did you worry whether your food would run out before you got money to buy more?: Never true Do you have trouble paying for medicines?: No Do you have trouble getting transportation to medical appointments?: No Do you have trouble paying your heating and electricity bill?: No Do you have trouble taking care of your child, family member or friend?: No Do you have trouble with day-to-day activities such as bathing, preparing meals, shopping, managing finances, etc.?: No Are you currently unemployed and looking for a job?: No Are you interested in more education?: No Please select the resources that you would like help with: None Currently or been in a relationship where the following occur: No concerns reported THRIVE Score: 0 AUDIT C Alcohol Use Questionnaire (AUDIT-C) 1. How often do you have a drink containing alcohol?: Never 3. How often do you have six or more drinks on one occasion?: Never Total Score: 0 BRANDON-7 AMB Questionnaire BRANDON-7 Date BRANDON - 7 assessed: 05/01/24 Feeling nervous, anxious, or on edge: 0 = Not at all Not being able to stop or control worryin = Not at all Worrying too much about different things: 0 = Not at all Trouble relaxin = Not at all Being so restless that it is hard to sit still: 0 = Not at all Becoming easily annoyed or irritable: 0 = Not at all Feeling afraid as if something awful might happen: 0 = Not at all Total BRANDON-7 score (0-4 normal; 5-9 mild; 10-14 moderate; 15-21 severe): 0 Source: Developed by Drs. Shamar Diaz, Janene Yates, Lavon Serna and colleagues, with an educational lo from [employer]. Review of Systems Card Reports chest pain (on deep inspiration ) and Reports lightheadedness Physical exam (Primary Care) Vital Signs: Last Vital Signs Temp 98.6 F 07/30/24 09:28 Pulse 92 07/30/24 09:28 Resp 14 07/30/24 09:28 BP 106/78 07/30/24 09:28 Pulse Ox 94 07/30/24 09:28 Oxygen Delivery Method Room Air 07/30/24 09:28 BMI result Body Mass Index 35.3 Tobacco/Smoking Status: Tobacco use Status Tobacco use date assessed 05/01/24 07/30/24 09:20 Patient Tobacco Use Status Former Tobacco user 07/30/24 09:20 Tobacco use type Cigarette 07/30/24 09:20 e-Cigarette/Vaping Use Never Used 07/30/24 09:20 PHQ-9: PHQ-9 Score PHQ-9: Total score 10 07/30/24 09:20 Thrive Assessment: Date of Thrive Assessment Date Thrive assessed 05/01/24 07/30/24 09:20 Currently or been in a relationship where the following occur: No concerns reported Coding Level of Care Code Est Pt Level 4 (95619) Diagnoses Prediabetes R73.03 Elevated blood pressure reading R03.0 Chest wall discomfort R07.89 Assessment & Plan Assessment & Plan (1) Prediabetes: Comment: with hypertriglyceridemia Code(s): R73.03 - Prediabetes Category: Medical Plan: A1c?has?improved?from?6.3%?to?5.9%?today Continue?working?on?diet Low?in?sugars?and?starches Will?continue?to?monitor (2) Elevated blood pressure reading: Code(s): R03.0 - Elevated blood-pressure reading, without diagnosis of hypertension Category: Medical Plan: Blood?pressures?seemed?fluctuate.?? Recent?systolic?blood?pressures?in?140s?but?today?systolic?blood?pressure?106. EKG: ?Sinus?rhythm?with?sinus?arrhythmia, normal?axis,?no?hypertrophy,?no?ST-T-wave?changes. Wi ll?give?her?a?blood?pressure?monitor?for?home.??To?let?me?know?if?systolic?blood ?pressures?are?consistently?above?140 Hydrate?well No?medication?changes?at?this?time (3) Chest wall discomfort: Code(s): R07.89 - Other chest pain Category: Medical Plan: Patient?has?right?chest?wall?pain?between?ribs?which?is?worsened?with?deep?inspi ration.??Recent?chest?x-rays?unrevealing. She?can?use?heat?and?gentle?stretching If?not?improving?or?worsens?or?she?has?new?concerning?symptoms?she?will?know Medications: New blood pressure monitor Automatic, Digital. Dx: I10. Daily As directed, 999 days/lifetime 1 ea 0RF I10 - Essential (primary) hypertension
[2024-07-30 09:28] VITALS: BP 106/78; PULSE 92; RESP 14; TEMP 37; O2SAT 94; BMI 35.3
== END 2024-07-30 10:12 | disposition home or self-care (01) ==
PROVIDERS: PCP Family Medicine; Visit Provider Family Medicine
DX: R73.03 Prediabetes (principal); R03.0 Elevated blood-pressure reading, without diagnosis of hypertension; R07.89 Other chest pain

== ENCOUNTER → 2024-07-30 09:14 | Outpatient (BNVA) | payer OTHER, SELFPAY | PROVIDERS: PCP Family Medicine; Visit Provider Family Medicine | DX: R73.03 Prediabetes (principal); R07.89 Other chest pain; R03.0 Elevated blood-pressure reading, without diagnosis of hypertension | CPT/HCPCS: 99212 ==

== ENCOUNTER 2024-10-13 08:59 | Outpatient (AMB) | payer OTHER, SELFPAY ==
--- NOTE | 2024-10-13 09:00 | A.OFFVIS_ITS ---
Vital Signs 10/13/24 09:07 Height 5 ft 2 in Weight 197 lb BMI 36.0 BP 131/73 Blood Pressure Location Rt brachial Position Sitting Pulse 133 H Intake Visit Reasons: discuss Intake Note: This patient presents to discuss incisional hernia repair, ostomy in place. Pt c/o; occasional lower abdominal cramping/ burning sensation. 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 Dx: I10. Daily As directed, 999 days/lifetime duloxetine 30 mg PO BID duloxetine mg PO fremanezumab-vfrm (Ajovy Syringe) 225 mg subcut Q30D loratadine (Claritin) 10 mg PO DAILY magnesium oxide 800 mg PO BIDPC methocarbamol 750 mg PO TID kfvzzwyw-ukz-nllr-FA-vit K-lut 8 mg iron-400 mcg-50 mcg (Centrum Silver Women) 1 tab PO DAILY ondansetron 1 tab PO DAILY PRN pantoprazole 40 mg PO DAILY rizatriptan 1 tab PO DAILY PRN HPI HPI discuss: Details: She is here for follow-up for an incisional hernia. She had developed this after multiple laparotomies for perforated stercoral ulcers in the colon as well as for toxic megacolon She continues to do well. However she admits that she has gained 5 lb of weight since I last saw her. She denies any problems were stoma. REPLACED BY [facility] Medical History Prediabetes Hypertriglyceridemia Elevated blood pressure reading Bilateral foot pain Incisional hernia Parastomal hernia Subcutaneous abscess Seborrheic dermatitis Migraines Fatty liver disease, nonalcoholic Sinusitis Ileostomy in place Dizziness Recurrent vomiting Gastroparesis Intra-abdominal abscess Intra-abdominal abscess Fever of unknown origin Leukocytosis Shock Perforated viscus COVID-19 vaccine series completed Environmental allergies PONV (postoperative nausea and vomiting) Thoracic disc herniation Herniated cervical disc Back pain Fibromyalgia Hx of migraines Crohn's disease Iron deficiency anemia Carpal tunnel syndrome Arthritis Vitamin D deficiency GERD (gastroesophageal reflux disease) Surgical History S/P colectomy Status post colostomy Hx of shoulder surgery History of surgery Hx of fusion of cervical spine Hx of cholecystectomy History of tonsillectomy History of esophagogastroduodenoscopy (EGD) History of tubal ligation Hx of colonoscopy Family History Paternal Grandmother High blood pressure High cholesterol Mother Throat cancer Alcoholism Alcohol abuse Maternal Grandmother Breast cancer Paternal Grandfather Prostate cancer Family/Other High blood pressure Father Alcohol abuse Daughter FH: mental illness Social History Household Members: Spouse and Family Household Members Other:: Stepson Housing: House Are you a primary associate director career services to a significant other at home: No Do you presently have visiting nurse or other home services: No Unable to assess alcohol history related to: Unknown Alcohol intake: former Comment: restraints Patient Tobacco Use Status: Former Tobacco user Tobacco use type: Cigarette e-Cigarette/Vaping Use: Never Used Second Hand Smoke Exposure: No Advance Directives Date on File: 08/08/22 service: No Current occupational status: employed 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 @ [employer] Cognitive needs: No Hearing needs: No Vision needs: No Review of Systems Const Denies chills and Denies fever(s) Card Denies chest pain, Denies dyspnea and Denies dyspnea on exertion Resp Denies cough, Denies dyspnea and Denies dyspnea on exertion GI Denies hematochezia and Denies change in bowel habits Denies hematuria Musc Denies back pain and Denies limited range of motion Neuro Denies focal weakness and Denies convulsions Psych Denies depression and Denies mood swings Physical Exam Vital Signs: Last Vital Signs Pulse 133 H 10/13/24 09:07 BP 131/73 10/13/24 09:07 BMI result Body Mass Index 36.0 Const General: comfortable and no acute distress Nutritional Appearance: obese Resp Effort & Inspection: normal respiratory effort Cardio Rate: regular rate GI Other: Ileostomy functioning well. She has a palpable reducible hernia in the upper midline, with the defect about over 5 cm, nontender Palpation (GI): Soft to palpation, not firm, nontender and no guarding Assessment & Plan Assessment & Plan (1) Incisional hernia: Code(s): K43.2 - Incisional hernia without obstruction or gangrene Category: Medical Plan: She has this reducible incisional hernia. She has gained weight however since I last saw her. I explained to her the higher risk of recurrence with her current weight at this time. She is morbidly obese and she understands the perioperative risks I told her that I will see her again in about 3 months to see how she is doing with regards to her weight. She says the hernia does not bother her at this time except for when she is bending down. She is also prediabetic and will be seeing a filler blender for this. Coding Level of Care Code Est Pt Level 3 (94475) Diagnoses Incisional hernia K43.2
[2024-10-13 09:07] VITALS: BP 131/73; PULSE 133; BMI 36.0
--- OUTSIDE RECORDS SUMMARY | 2024-10-13 09:20 | XMS_ITS | Encounter Summary ---
Author Organization [facility] Address [address] [place] [address] Care Team Providers Care Tool Lathe Operator Name Role Phone Manool Bonilla MD Primary Care Provider [phone] Reason for Visit * Reason Comments Foot Problem Bilateral foot pain Encounter Details Date Type Department Care Team (Late st Contact Info) Description 09/15/2024 1:30 PM EST Office Visit Orthopedic Surgery - [facility] [address] [phone] Matthew Hall DPM [address] [phone] Neuritis (Primary Dx); Metatarsalgia of right foot Social History Tobacco Use Types Packs/Day Years Used Date Smoking Tobacco: Never Assessed Sex and Gender Information Value Date Recorded Sex Assigned at Not on file Gender Identity Not on file Sexual Orientation Not on file Job Start Date Occupation Industry Not on file Not on file Not on file documented as of this encounter Last Filed Vital Signs Vital Sign Reading Time Taken Comments Blood Pressure - - Pulse - - Temperature - - Respiratory Rate - - Oxygen Saturation - - Inhaled Oxygen Concentration - - Weight 89.6 kg (197 lb 9.6 oz) 09/15/2024 1:41 P M EST Height 157.5 cm (5' 2 ) 09/15/2024 1:41 PM EST Body Mass Index 36.14 09/15/2024 1:41 PM EST documented in this encounter Ordered Prescriptions Prescription Sig Dispensed Refills Start Date End Da te diclofenac (Voltaren Arthritis Pain) 1 % topical gel Apply 4 g topically 2 (two) times a day. 200 g 1 09/15/2024 11/14/2024 documented in this encounter Progress Notes * Matthew Hall DPM - 09/15/2024 1:30 PM EST IDENTIFIER: Nhi is a 64 y.o. year old female who presents for consultation. 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 Pt in NAD. CARDIOLOGY: pt denies chest pain, palpitations LUNGS: pt denies shortness of breath MUSCULOSKELETAL: See HPI, otherwise no joint pain or swelling, back pain, or muscle pain. SKIN: see HPI, otherwise no lesions, rash or itching NEURO: No persistent headache, weakness or numbness The remainder of the review of systems is noncontributory PAST MEDICAL HISTORY: Patient Active Problem List Diagnosis Arthritis Bilateral foot pain Carpal tunnel syndrome Crohn disease (CMS/HCC) Dizziness Elevated blood pressure reading Fatty liver disease, nonalcoholic Fever of unknown origin Fibromyalgia Gastroparesis Hypertriglyceridemia Ileostomy in place (CMS/HCC) Intra-abdominal abscess (CMS/HCC) Iron deficiency anemia Leukocytosis Migraines Pain in right foot Parastomal hernia Perforated viscus Prediabetes Recurrent vomiting Seborrheic dermatitis Shock (CMS/HCC) Sinusitis Subcutaneous abscess PONV (postoperative nausea and vomiting) SOCIAL HISTORY: Social History Tobacco Use Smoking status: Not on file Smokeless tobacco: Not on file Substance Use Topics Alcohol use: Not on file ACTIVE MEDICATIONS: No outpatient medications have been marked as taking for the 09/15/24 encounter (Office Visit) with Matthew Hall DPM. ALLERGIES: Allergies Allergen Reactions Ibuprofen Omeprazole Tramadol PHYSICAL EXAM: Visit Vitals Ht 1.575 m (62 ) Wt 89.6 kg (197 lb 9.6 oz) BMI 36.14 kg/m?? BSA 1.9 m?? PODIATRIC EXAMINATION: GENERAL: Patient appears well nourished, with NAD. VASCULAR: Dorsalis pedis pulses are 2/4 bilaterally and Posterior tibial pulses are 2/4 bilaterally. Capillary filling time within normal limits the digits. No pallor on elevation or rubor on dependency. Positive hair growth. No varicosities. Denies rest pain or claudication pain. NEUROLOGICAL: Sharp/dull sensation altered, protective sensation intact 10/10 with 5.07 semmes allan bilaterally, vibratory sensation with tuning fork intact to the tibial tuberosity. ORTHOPEDIC: Good muscle strength 5/5 of all flexors and extensors. Dorsi flexion of ankle ,10 degrees, plantar flexion WNL. No muscle atrophy. DERMATOLOGICAL:.No masses or skin lesions noted. Normal skin temperature, normal skin turgor. BIOMECHANICS: Ankle ROM WNL, STJ ROM wnl, MTJ ROM wnl, 1st MPJ ROM wnl. Diffuse pain patient fifth metatarsal head right foot IMAGING: IMPRESSION: 1. Neuritis 2. Metatarsalgia of right foot PLAN: Pt was seen and examined, history reviewed. EMG/NCV study reviewed consistent with neuropathy neuritis of the lower extremity L4 S1 Voltaren gel prescribed for neuritis and metatarsalgia X-rays of the right foot 3 views Offloading padding placed and insoles help offload the fifth metatarsal head Follow-up in 1 month Matthew Hall DPM documented in this encounter Plan of Treatment Upcoming Encounters Date Type Department Care Team (Late st Contact Info) Description 11/03/2024 8:15 AM EST Office Visit Orthopedic Surgery - [facility] [address] [phone] Matthew Hall DPM [address] [id number] documented as of this encounter Visit Diagnoses Diagnosis Neuritis- Primary Unspecified neuralgia, neuritis, and radiculitis Metatarsalgia of right foot documented in this encounter Care Teams Tool Lathe Operator Relationship Specialty Start Date End Date Manolo Bonilla MD [address] [place] [address] Dr Leonel MA PCP - General 05/05/24 documented as of this encounter
--- OUTSIDE RECORDS SUMMARY | 2024-10-13 09:20 | XMS_ITS | Clinical Summary ---
Author Organization [address] [facility] Address [address] [place] [address] Phone Care Team Providers Care Coke Wheeler Name Role Phone Manolo Bonilla MD Primary Care Provider Allergies Active Allergy Reactions Criticality Noted Date Comments Ibuprofen 06/20/2024 Omeprazole 06/20/2024 Tramadol 06/20/2024 Medications Medication Sig Dispensed Refills Start Date End Date Status diclofenac (Voltaren Arthritis Pain) 1 % topical gel Apply 4 g topically 2 (two) times a day. 200 g 1 09/15/2024 11/14/2024 Active Active Problems Problem Noted Date Diagnosed Date PONV (postoperative nausea and vomiting) 024 Arthritis 06/20/2024 Bilateral foot pain 06/20/2024 Carpal tunnel syndrome 06/20/2024 Crohn disease 06/20/2024 Dizziness 06/20/2024 Elevated blood pressure reading 06/20/2024 Fatty liver disease, nonalcoholic 06/20/2024 Fever of unknown origin 06/20/2024 Fibromyalgia 06/20/2024 Gastroparesis 06/20/2024 Hypertriglyceridemia 06/20/[address] 06/20/2024 Intra-abdominal abscess 06/20/2024 Iron deficiency anemia 06/20/2024 Leukocytosis 06/20/2024 Migraines 06/20/2024 Pain in right foot 06/20/2024 Parastomal hernia 06/20/2024 Perforated viscus 06/20/2024 Prediabetes 06/20/2024 Recurrent vomiting 06/20/2024 Seborrheic dermatitis 06/20/2024 Shock 06/20/2024 Sinusitis 06/20/2024 Subcutaneous abscess 06/20/2024 Encounters Date Type Department Care Team Description 09/15/2024 1:30 PM EST Office Visit Orthopedic Surgery [facility] [address] [facility] [address] [place] [phone] Matthew Hall DPM Neuritis (Primary Dx); Metatarsalgia of right foot from Last 3 Months Social History Tobacco Use Types Packs/Day Years Used Date Smoking Tobacco: Never Assessed Sex and Gender Information Value Date Recorded Sex Assigned at Not on file Gender Identity Not on file Sexual Orientation Not on file Job Start Date Occupation Industry Not on file Not on file Not on file Last Filed Vital Signs Vital Sign Reading Time Taken Comments Blood Pressure - - Pulse - - Temperature - - Respiratory Rate - - Oxygen Saturation - - Inhaled Oxygen Concentration - - Weight 89.6 kg (197 lb 9.6 oz) 09/15/2024 1:41 P M EST Height 157.5 cm (5' 2 ) 09/15/2024 1:41 PM EST Body Mass Index 36.14 09/15/2024 1:41 PM EST Plan of Treatment Upcoming Encounters Date Type Department Care Team (Late st Contact Info) Description 11/03/2024 8:15 AM EST Office Visit Orthopedic Surgery - [place] [phone] [phone] Matthew Hall DPM [address] [address] Health Maintenance Due Date Last Done Comments Breast Cancer Screening 1960 DTaP,Tdap,and Td Vaccines (1 - Tdap) 01/17/1980 Cervical Cancer Screening: Pap Smear 1982 Pneumococcal Vaccine: Pediatrics (0 to 5 Years) and At-Risk Patients (6 to 64 Years) (2 of 2 - PCV) 01/02/2018 01/02/2017 Cholesterol Screening (Lipid Panel) 06/23/2024 Colorectal Cancer Screening: Colonoscopy 06/23/2024 Depression Screening 06/23/2024 HIV Screening 06/23/2024 Hepatitis C Screening 06/23/2024 Social Influencers of Health Screening 06/23/2024 Zoster Vaccines Completed 08/16/2020, 05/26/2020 COVID-19 Vaccine Completed 05/29/2024, , 11/19/2022, Additional history exists Influenza Vaccine Completed 05/29/2024, , 10/26/2022, Additional history exists RSV Immunization Patients 60+ Years Old Completed 05/29/2024, 10/18/2023 HIB Vaccines Aged Out No longer eligi ble based on patient's age to complete this topic HPV Vaccines Aged Out No longer eligi ble based on patient's age to complete this topic Hepatitis A Vaccines Aged Out No long er eligible based on patient's age to complete this topic Hepatitis B Vaccines Aged Out No long er eligible based on patient's age to complete this topic IPV Vaccines Aged Out No longer eligi ble based on patient's age to complete this topic MMR Vaccines Aged Out No longer eligi ble based on patient's age to complete this topic Meningococcal ACWY Vaccine Aged Out N o longer eligible based on patient's age to complete this topic RSV Immunization Patients Under 20 months Aged Out No longer eligible based on patient's age to complete this topic Varicella Vaccines Aged Out No longer eligible based on patient's age to complete this topic Care Teams Coke Wheeler Relationship Specialty Start Date End Date Manolo Bonilla MD [address] [place] [address] Dr Leonel MA PCP - General 05/05/24
--- OUTSIDE RECORDS SUMMARY | 2024-10-13 09:20 | XMS_ITS ---
Author Organization [facility] Address Unknown Allergies, Adverse Reactions, Alerts Substance Reaction Status Noted Date Resolved Date Ultram active 08/01/2022 Omeprazole active 08/01/2022 Ibuprofen active 08/01/2022 Problems Problem Status Start Date End Date ENCOUNTER FOR SURGICAL AFTER CARE FOLLOWING SURGERY ON THE DIGESTIVE SYSTEM (Primary) (Z48.815 - ICD-10-CM) ACTIVE 08/01/2022 HYPOVOLEMIC SHOCK (R57.1 - ICD-10-CM) ACTIVE MUSCLE WEAKNESS (GENERALIZED) (M62.81 - ICD-10-CM) ACT KULWANT 08/01/2022 DIFFICULTY IN WALKING, NOT E LSEWHERE CLASSIFIED (R26.2 - ICD-10-CM) ACTIVE 08/01/2022 UNSTEADINESS ON FEET (R26.81 - ICD-10-CM) ACTIVE 08/01/2022 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
== END 2024-10-13 09:21 | disposition home or self-care (01) ==
PROVIDERS: PCP Family Medicine; Visit Provider Surgery
DX: K43.2 Incisional hernia without obstruction or gangrene (principal)
CPT/HCPCS: 99213

== ENCOUNTER → 2024-10-13 08:59 | Outpatient (BNVA) | payer OTHER, SELFPAY | PROVIDERS: PCP Family Medicine; Visit Provider Surgery | DX: K43.2 Incisional hernia without obstruction or gangrene (principal) | CPT/HCPCS: 99212 ==

== ENCOUNTER 2024-11-03 09:34 | Outpatient (AMB) | payer OTHER, SELFPAY ==
--- NOTE | 2024-11-03 10:19 | MHC.AMNUTRGE ---
VS Expanded 11/03/24 10:22 Height 5 ft 2 in Weight 198 lb 13.711 oz BMI 36.4 Intake Visit Reasons: Pre-DM Allergies omeprazole [OMEPRAZOLE] Allergy (Severe, Verified 11/03/24 15:53) N/V tramadol [From Ultram] Allergy (Intermediate, Verified 11/03/24 15:53) ITCHING ibuprofen [From Motrin] Allergy (Verified 11/03/24 15:53) Unknown Nutrition Presentation Details: Pt present for MNt for PreDM Pt reports diet inconsistencies in the last month BS Monitoring Most Recent Diabetes Results: Microalb/Creat Ratio 5.2 ug/mg cr (<30) 07/24/24 Cholesterol 161 mg/dL (<200) 07/24/24 HDL Cholesterol 44 mg/dL (>40) 07/24/24 Triglycerides 195 mg/dL (<150) H 07/24/24 Creatinine 1.06 mg/dL (0.5-1.4) 07/24/24 Blood Urea Nitrogen 20 mg/dL (9-16) H 07/24/24 Sodium 140 mmol/L (135-145) 07/24/24 Potassium 4.3 mmol/L (3.3-5.1) 07/24/24 Chloride 105 mmol/L (96-108) 07/24/24 Carbon Dioxide 28 mmol/L (22-29) 07/24/24 Calcium 9.3 mg/dL (8.4-10.2) 07/24/24 AST 58 U/L (5-31) H 07/24/24 ALT 81 U/L (0-31) H 07/24/24 Total Protein 7.4 g/dL (6.5-8.0) 07/24/24 Albumin 4.1 g/dL (3.5-5.0) 07/24/24 [facility] Medical History Prediabetes Hypertriglyceridemia Elevated blood pressure reading Bilateral foot pain Incisional hernia Parastomal hernia Subcutaneous abscess Seborrheic dermatitis Migraines Fatty liver disease, nonalcoholic Sinusitis Ileostomy in place Dizziness Recurrent vomiting Gastroparesis Intra-abdominal abscess Intra-abdominal abscess Fever of unknown origin Leukocytosis Shock Perforated viscus COVID-19 vaccine series completed Environmental allergies PONV (postoperative nausea and vomiting) Thoracic disc herniation Herniated cervical disc Back pain Fibromyalgia Hx of migraines Crohn's disease Iron deficiency anemia Carpal tunnel syndrome Arthritis Vitamin D deficiency GERD (gastroesophageal reflux disease) Surgical History S/P colectomy Status post colostomy Hx of shoulder surgery History of surgery Hx of fusion of cervical spine Hx of cholecystectomy History of tonsillectomy History of esophagogastroduodenoscopy (EGD) History of tubal ligation Hx of colonoscopy Family History Paternal Grandmother High blood pressure High cholesterol Mother Throat cancer Alcoholism Alcohol abuse Maternal Grandmother Breast cancer Paternal Grandfather Prostate cancer Family/Other High blood pressure Father Alcohol abuse Daughter FH: mental illness Social History Household Members: Spouse and Family Household Members Other:: [place] Housing: House Are you a primary account executive healthcare to a significant other at home: No Do you presently have visiting nurse or other home services: No Unable to assess alcohol history related to: Unknown Alcohol intake: former Comment: restraints Patient Tobacco Use Status: Former Tobacco user Tobacco use type: Cigarette e-Cigarette/Vaping Use: Never Used Second Hand Smoke Exposure: No Advance Directives Date on File: 08/08/22 service: No Current occupational status: employed 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 @ [employer] Cognitive needs: No Hearing needs: No Vision needs: No Assessment & Plan Assessment & Plan (1) Prediabetes: Comment: with hypertriglyceridemia Code(s): R73.03 - Prediabetes Category: Medical Plan: Wt: 88 Kg ( 06/03 ), 90kg (12/02) Est kcal needs as per MSJ: 1700 (40% carb, 30% protein/fat) Est fluid needs as per 25-30 ml/d: 2600 Est prot per day as per 1 g/kg bw: 88 Recommend fiber intake : 8-10 g per day and gradually increase to 25-28 g per day for women and 35-38 g for men or as tolerated Recommend sodium intake per day : less than 2300 mg Educated patient on: ( R = reviewed V = verbalizes understanding N/R = needs review N/A = not applicable Food sources of carbohydrate, adequate serving sizes and its role in various health conditions: R Differences between complex carbohydrates a simple carbohydrates, role of fiber in diet: R V N/R Lean protein sources of foods: R Differences between types of fats and role in diet (mono on saturated fat fatty acids, saturated fatty acids, trans fats): R Food sources of sodium in salt and healthy modifications for heart health in kidney health: R V R/V Vitamins and minerals: R V N/R Healthy plate method concept: R V N/R Physical activity: Benefits a precaution: R V N/R Dietary prevention of Hyperglycemia: R Patient Instructions: Have a meal replacement at lunch time Coding Level of Care Code Nutr Indiv Subseq (43599) Diagnoses Prediabetes R73.03 Time Spent (min) 20
[2024-11-03 10:22] VITALS: BMI 36.4
--- OUTSIDE RECORDS SUMMARY | 2024-11-03 10:22 | XMS_ITS ---
Author Organization Shamar Do III, MD Address [address] [place] [address] [place] [phone] Care Team Providers Care Search Advertising Strategist Name Role Phone Manolo Bonilla Primary Care Provider Unavailab Shamar Munguia Unavailable [phone] REASON FOR VISIT Follow up Social History Sex Assigned At : Social History Observation Description Sex Assigned At Female Encounters Encounter Location Date Provider Diagnosis Shamar Do III, MD [address] [place] [address] [place] [phone] 04/21/2024 Shamar Do Plan Of Treatment Next Appt Details Provider Name:Shamar Do, 04/29/2025 09:30:00 AM, [address] [place] [address] [place], [phone], Progress Notes * Ju HANKINS MDOB: (64 yo F)Acc No.[id number]:04/21/2024 Progress Notes Patient:?Ju HANKINS Provider:?Shamar Do MD :1960???Age:64 Y???Sex:Female D ate:04/21/2024 Address[phone] Pcp:Manolo Bonilla Subjective: * Chief Complaints: * ???1. Follow up. * Medical History:? Objective: * Vitals:? Assessment: Plan: * Treatment: * Images: * The named appointment provid er may or may not be the originator of this progress note, and it is not deemed complete until electronically signed by the appointment provider. Sign off status: Pending * Provider:?Shamar Do MD Date:?04/10 Generated for Jakob danielle/Juan/Latosha on:?11/03/2024 10:22 AM EST
--- OUTSIDE RECORDS SUMMARY | 2024-11-03 10:22 | XMS_ITS ---
Author Organization Shamar Do III, MD Address [address] [place] [address] [address] [phone] Care Team Providers Care Clinical Data Assistant Name Role Phone Manolo Bonilla Primary Care Provider Unavailab Shamar Munguia Unavailable [phone] Allergies Allergen (clinical drug ingredient) Drug/Non Drug [...] Date Provider Diagnosis Shamar Do III, MD [address] [place] [address] [address] [phone] 04/28/2024 Shamar Do Leukopenia, unspecif ied type [...] Year, Reason: 1 year appt review labs Provider Name:Shamar Do, 04/29/2025 09:30:00 AM, [address] [place] [address] [address], [place], [phone], Progress Notes * Ju HANKINS MDOB: (64 yo F)Acc No.[id number]:04/28/2024 Progress Notes Patient:?Ju Hankins Provider:?Shamar Do MD :1960???Age:64 Y???Sex:Female D ate:04/28/2024 Address:[address] [id number] Pcp:Manolo Bonilla Subjective: * Chief Complaints: * ???PancytopeniaHypertensionO besityDegenerative disc disease cervical spine * HPI: ???COVID-19 Screening:? She returns for ongoing follow-up of a history of leukopenia thrombocytopenia and anemia. Recent blood work was available. The CBC was within normal limits. She has had no infections bleedings or transfusion. Her examination today was unremarkable. She will be followed at annual visits. A CBC done at [facility] April 28, 2024 showed a white count of 6.3 with a normal differential, hematocrit 40.5 with a mean cell volume 93.8, platelets 2:15. ?Questions?Have you experienced fever, chills, cough, sore throat, shortness of breath, difficulty breathing, muscle aches, loss of taste or smell??No ?Have you been exposed to the virus within the last 10 days??No ?Have you travelled internationally in the last 10 days??No ?Have you been exposed to COVID-19 in the past??Yes * ROS:?General/Constitutional:?pain?Neck with range of motion.?Chills?denies.?Fatigue?admits.?Fever?denies.?ENT:?Decreased hearing?denies.?Respiratory:?Cough?denies.?Cardiovascular:?Chest pain with exertion?denies.?Dyspnea on exertion?denies.?Shortness of breath?denies.?Gastrointestinal:?Constipation?occasional.?Decreased appetite?denies.?Diarrhea?denies.?Heartburn?denies.?Nausea?denies.?Rectal bleeding?denies.?Vomiting?denies.?Hematology:?bruising?denies.?petechiae?denies.?Swollen glands?none have been noted.?Genitourinary:?Frequent urination?at night.?Musculoskeletal:?Muscle aches?denies.?Painful joints?Neck.?Sciatica?denies.?Weakness?denies.?Skin:?Itching?denies.?Rash?denies.?Skin lesion(s)?denies.?Neurologic:?Difficulty speaking?denies.?Dizziness?denies.?Headache?denies.?Low back pain?denies.?Psychiatric:?Depressed mood?denies.? * Medical History:? * Surgical History:?tonsillect jean 1979cholecystectomy 1995cyst removal rtigh hand 2001left shoulder decompression 2007c spine fusion C5-6 [address] Peralta 2017Bowel perforation surgery 2Colostomy 07/2022 * Hospitalization/Major Diagno stic Procedure:?[facility] colitis May 2017 * Family History:?Father: sugey escobar 81 yrs, Gout, ureterolithiasis.?Mother: 56 yrs, Complications of alcoholism, head and neck cancer, diagnosed with Cancer.?1 brother(s) , 2 sister(s) - healthy. 2 son(s) , 1 daughter(s) - healthy. .? Her mother had malignancy in her throat. One of her sons has gastrointestinal disease. Her daughter has mental illness. * Social History:?Tobacco Use:?Tobacco Use/Smoking?Patient is a?nonsmoker ?Additional Findings: Tobacco Non-User?Aggressive non-smoker ???She lives in [place], [place]. 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 She has been exposed to hydrocarbons. She was born in [place]. He has a long-term significant other named Brandon. * Medications:?TakingClaritin 10 MG Tablet 1 tablet Orally Once a dayMagnesium 400 MG Tablet 2 tablets with a meal Orally Twice a dayCentrum Silver - Tablet Orally Rizatriptan Benzoate Ondansetron Famotidine Ajovy 225 MG/1.5ML Solution Auto- injector as directed Subcutaneous , Notes: once a monthDULoxetine HCl Methocarbamol Vitamin D3 Medication List reviewed and reconciled with the patientTaking Claritin 10 MG Tablet 1 tablet Orally Once a dayTaking Magnesium 400 MG Tablet 2 tablets with a meal Orally Twice a dayTaking Centrum Silver - Tablet Orally Taking Rizatriptan Benzoate Taking Ondansetron Taking Famotidine Taking Ajovy 225 MG/1.5ML Solution Auto- injector as directed Subcutaneous , Notes: once a monthTaking DULoxetine HCl Taking Methocarbamol Taking Vitamin D3 Medication List reviewed and reconciled with the patient * Allergies:?OmeprazoleUltramn o[Allergies Verified] Objective: * Vitals:?Ht: 62, Wt: 195, BMI :35.66, BP: 149/91, HR: 80, Temp: 99.9, Wt-k.45. * Examination: ???General Examination: ?GENERAL APPEARANCE:?pleasant, well nourished, well developed, in no acute distress, calm and relaxed , obese , woman.?HEAD:?atraumatic, normocephalic.?EYES:?eomi, perrla, anicteric, conjugate.?EARS:?normal.?NOSE:?septum intact.?ORAL CAVITY:?normal, unremarkable.?NECK/THYROID:?no jugular venous distention, no carotid bruit, thyroid normal.?LYMPH NODES:?no enlarged lymph nodes,spleen normal.?SKIN:?no suspicious lesions, anicteric.?HEART:?no clicks, gallops, murmurs, or rubs, regular rhythm, S1, S2 normal, no s3, or vascular bruits.?LUNGS:?clear to auscultation .?BREASTS:?not examined.?ABDOMEN:?bowel sounds normal, no ascites, no organomegaly, no mass , centripital obesity.?RECTAL EXAM:?not examined.?MUSCULOSKELETAL:?extremities unremarkable, no clubbing, cyanosis or edema, Mild decreased range of motion of neck.?PERIPHERAL PULSES:?normal.?NEUROLOGIC:?alert and oriented, cranial nerves 2-12 grossly intact, deep tendon reflexes 2+ symmetrical, motor strength normal upper and lower extremities, sensory exam intact.?PSYCH:?alert, oriented.? Assessment: * Assessment: 1.?Leukopenia, unspecified t ype - D72.819 (Primary), The value is now in the normal range. She has had no recent infections.?2.?Thrombocytopenia - D69.6, Her platelet count has returned to normal and she has had no bleeding or clotting.?3.?Normochromic normocytic anemia - D64.9, The hematocrit and mean cell volume are now normal.? Plan: * Treatment: 2.?Thrombocytopenia?LAB: PROFILE, RANDOM (COMPREHENSIVE METABOLIC) ?LAB: CBC w DIFF 3.?Normochromic normocytic a nemia?LAB: PROFILE, RANDOM (COMPREHENSIVE METABOLIC) ?LAB: CBC w DIFF 4.?Others? Continue Claritin Tablet, 10 MG, 1 tablet, Orally, Once a day;?Continue Magnesium Tablet, 400 MG, 2 tablets with a meal, Orally, Twice a day;?Continue Rizatriptan Benzoate;?Continue Ondansetron;?Continue Famotidine;?Continue Ajovy Solution Auto-injector, 225 MG/1.5ML, as directed, Subcutaneous, Notes: once a month;?Continue DULoxetine HCl;?Continue Methocarbamol.?? * Procedure Codes:? * Preventive Medicine:? ??Counseling:?Care goal follow-up plan:?Counseling for abnormal BMI given?Yes ?Above Normal BMI Follow-up?Dietary management education, guidance, and counseling, Dietary needs education, Exercise promotion: strength training, Exercise promotion: stretching, Feeding regime, Giving encouragement to exercise, Lifestyle education regarding diet, Nutrition / feeding management, Nutrition therapy, Prescribed activity/exercise education, Prescribed diet education, Prescribed dietary intake, Special diet education, Weight monitoring , Intervention, Order not done: Medical or Other reason not done * Follow Up:?1 Year (Reason: 1 year appt review labs ) * Images: * Sign off status: Completed true * Provider:?Shamar Do MD Date:?04/10 Generated for Printi ng/Iqrag/eTransmitting on:?11/03/2024 08:06 AM EST History and Physical Notes * HPI (History of Present Illness) Category Sub-Category Detail Notes COVID-19 Screening Questions Have you had any new onset fever, chills, cough, congestion, sore throat, shortness of breath, muscle aches?: No Have you been exposed to the virus withi n the last 10 days?: No Have you travelled internationally in [facility] last 10 days?: No Have you been [...]
--- OUTSIDE RECORDS SUMMARY | 2024-11-03 10:22 | XMS_ITS | Clinical Summary ---
Author Organization [facility] Address [address] [place] [address] Phone Care Team Providers Care Monumental Stonemason Name Role Phone Manolo Bonilla MD Primary Care Provider Allergies Active Allergy Reactions Criticality Noted Date Comments Ibuprofen 06/20/2024 Omeprazole 06/20/2024 Tramadol 06/20/2024 Medications diclofenac (Voltaren Arthritis Pain) 1 % topical gel Apply 4 g topically 2 (two) times a day. 200 g 1 5 11/15/19 25 Active Active Problems Problem Noted Date Diagnosed [...] Encounters Date Type Department Care Team Description 11/03/2024 8:15 AM EST Office Visit Orthopedic Surgery [facility] [address] [address] Matthew Hall DPM Follow-up exam (Primary Dx); Metatarsalgia of right foot; Neuritis 09/15/2024 1:30 PM EST Office Visit Orthopedic Surgery [place] [address] [phone] Matthew Hall DPM Neuritis (Primary Dx); Metatarsalgia of right foot from Last 3 Months Social History Tobacco Use Types Packs/Day Years Used Date Smoking Tobacco: Never Assessed Comments Unknown Sex and Gender Information Value Date Recorded Sex Assigned at Not on file Legal Sex Female 11:39 AM EDT Gender Identity Not on file Sexual Orientation Not on file Last Filed Vital Signs Vital Sign Reading Time Taken Comments Blood Pressure - - Pulse - - Temperature - - Respiratory Rate - - Oxygen Saturation - - Inhaled Oxygen Concentration - - Weight 89.4 kg (197 lb) 11/03/2024 8:11 AM EST Height 157.5 cm (5' 2.01 ) 11/03/2024 8:11 AM ES T Body Mass Index 36.02 11/03/2024 8:11 AM EST Plan of Treatment Upcoming Encounters Date Type Department Care Team (Late st Contact Info) Description 02/09/2025 8:15 AM EDT Office Visit Orthopedic [address] [phone] Matthew Hall DPM [address] [address] Health Maintenance Due Date Last Done Comments Breast Cancer Screening 1960 DTaP,Tdap,and Td Vaccines (1 - Tdap) 01/17/1980 Cervical Cancer Screening: Pap Smear 1982 Pneumococcal Vaccine: 50+ Years (2 of 2 - PCV) 01/02/2018 01/02/2017 Pneumococcal Vaccine: Pediatrics (0 to 5 Years) [...] patient's age to complete this topic Meningococcal B Vacine Aged Out No lo nger eligible based on patient's age to complete this topic RSV Immunization Patients Under 20 months Aged Out No longer eligible based on patient's age to complete this topic Varicella Vaccines Aged Out No longer eligible based on patient's age to complete this topic Insurance [facility] PUBLIC PLANS Care Teams Monumental Stonemason Relationship Specialty Start Date End Date Manolo Bonilla MD [address] [place] [address] Dr Leonel [place] PCP - General 05/05/24
--- OUTSIDE RECORDS SUMMARY | 2024-11-03 10:22 | XMS_ITS | Patient Health Record ---
Author Organization Shamar Do III, MD Address [address] [place] [address] [address] [place] [address] Care Team Providers Care Wireless Internet Installer Name Role Phone Manolo Bonilla Primary Care Provider Unavailab Shamar Munguia Unavailable [phone] Allergies Allergen (clinical drug ingredient) Drug/Non Drug Allergy documented on EMR Reaction Allergy Type Onset Date Status tramadol Ultram Unknown Drug Allergy Active omeprazole Omeprazole Unknown Drug Allergy Activ e Reason For Referral No Information Medications Medication SIG (Take, Route, Frequency, Duration) Notes Start Date End Date Status Vitamin D3 Active Claritin 10 MG 1 tablet Orally Once a day Active Magnesium 400 MG 2 tablets with a funmi l Orally Twice a day Active Centrum Silver - Orally Act ariana Rizatriptan Benzoate Active Ondansetron Active Famotidine Active Ajovy 225 MG/1.5ML as directed Subcutaneous once a month Active DULoxetine HCl Activ e Methocarbamol Active Social History Tobacco Use: Social History Observation Description Date Details (start date - stop date) Never Smoker NA - NA Sex Assigned At : Social History Observation Description Sex Assigned At Female Tobacco Use/Smoking Question Answer Notes Patient is a nonsmoker Additional Findings: Tobacco Non-User Aggressive non-smoker Alcohol Screen Question Answer Notes Did you have a drink containing alcohol in the p ast year? No Points 0 Interpretation Negative Problems Problem Type SNOMED Code ICD Code Onset Dates Problem Status W/U Status Risk Notes Problem 270355091 Thrombocytopenia (D69.6) Active confirmed Her platelet count has returned to normal and she has had no bleeding or clotting. Problem 349586076 Obesity (BMI 30-39.9) (E66.9) Active confirmed Her weight has been volatile. Her body mass index is now 32.7. We have discussed lifestyle modification diet and nutrition at length. Problem 05602470 Essential hypertension (I10) Active confirmed Her blood pressure is currently normal and no change in her regimen is necessary. The value is 122/82. I recommended weight loss and sodium restriction. Problem 46824762 Degenerative dis c disease, cervical (M50.30) Active confirmed Problem 483693383 History of cholecystectomy (Z90.49) Active confirmed Problem 23499514 Leukopenia, unspecified type (D72.819) Active confirmed The value is now in the normal range. She has had no recent infections. Problem 29966379 Normochromic normocytic anemia (D64.9) Active confirmed The hematocrit and mean cell volume are now normal. 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 I strongly recommended she continue routine and regular visits with OFFICE NURSE. Problem 152446791 H/O tubal ligati on (Z98.51) Active confirmed Vital Signs Heart Rate 80 /min 04/28/2024 Temperature 99.9 degrees Fahrenheit 04/28/2024 Blood pressure diastolic 91 mm Hg 04/28/2024 Height 62 in 04/28/2024 Blood pressure systolic 149 mm Hg 04/28/2024 Weight 195 lbs 04/28/2024 BMI 35.66 kg/m2 04/28/2024 Encounters Encounter Location Date Provider Diagnosis Shamar Do III, MD [address] [place] [address] [place] [phone] 04/28/2024 Shamar Do Leukopenia, unspecif ied type D72.819 ; Thrombocytopenia D69.6 and Normochromic normocytic anemia D64.9 Assessments Encounter Date Diagnosis (ICD Code) Assessment Notes Treat ment Notes Treatment Clinical Notes 04/28/2024 Thrombocytopenia (ICD-10 - D69.6) Her platelet count has returned to normal and she has had no bleeding or clotting. 04/28/2024 Leukopenia, unspecif ied type (ICD-10 - D72.819) The value is now in the normal range. She has had no recent infections. 04/28/2024 Normochromic normocy tic anemia (ICD-10 - D64.9) The hematocrit and mean cell volume are now normal. Plan Of Treatment Pending Test Test Name Order Date PROFILE, RANDOM (COMPREHENSIVE METABOLIC ) 03/23/2020 PROFILE, RANDOM (COMPREHENSIVE METABOLIC ) 04/28/2024 PROFILE, RANDOM (COMPREHENSIVE METABOLIC ) 04/24/2022 PROFILE, RANDOM (COMPREHENSIVE METABOLIC ) 03/18/2019 PROFILE, RANDOM (COMPREHENSIVE METABOLIC ) 03/12/2018 PROFILE, RANDOM (COMPREHENSIVE METABOLIC ) 09/20/2020 PROFILE, RANDOM (COMPREHENSIVE METABOLIC ) 09/23/2019 PROFILE, RANDOM (COMPREHENSIVE METABOLIC ) 10/22/2023 PROFILE, RANDOM (COMPREHENSIVE METABOLIC ) 09/05/2018 PROFILE, RANDOM (COMPREHENSIVE METABOLIC ) 03/21/2021 CBC w DIFF 03/21/2021 CBC w DIFF 03/23/2020 CBC w DIFF 04/28/2024 CBC w DIFF 04/24/2022 CBC w DIFF 03/18/2019 CBC w DIFF 04/30/2023 CBC w DIFF 03/12/2018 CBC w DIFF 09/20/2020 CBC w DIFF 09/23/2019 CBC w DIFF 09/05/2018 CBC with MANUAL DIFFERENTIAL 09/17/2018 CBC WITH AUTO DIFF 10/22/2023 Next Appt Details Provider Name:Shamar Do, 04/29/2025 09:30:00 AM, [address] [place] [address] [address], [place], [address], Insurance Providers Payer Name Payer Address Payer Phone Subscriber Number Group Number Insured Name Patient Relationship to Insured Coverage Start Date Coverage End Date [facility] [address] [place] [address] [id number] Ju Hankins Self - patient is the insured Medical (General) History Medical History History ICD Code neutropenia normochromic normocytic anemia thrombocytopenia colitis history of obesity Clostridium difficile infection x 3 hypertension chronic low back pain secondary to herni ated disc positive high riskHPVDNA 2011, -2015 degenerative disc disease. Neck 3 unremarkable spleen on abdominal CT scan done 2016 Surgical History Surgery Date(Month/Year) Colostomy 07/2022 Bowel perforation surgery 05/[address] Peralta 2016 c spine fusion C5-6 2008 left shoulder decompression 2006 cyst removal rtigh hand 2000 cholecystectomy 1994 tonsillectomy 1979 Hospitalization History Reason Date(Month/Year) [facility] May 2017
--- OUTSIDE RECORDS SUMMARY | 2024-11-03 10:22 | XMS_ITS | Encounter Summary ---
Author Organization [employer] Address [address] [place] [address] Care Team Providers Care Despatching And Receiving Clerk Name Role Phone Manolo Bonilla MD Primary Care Provider [phone] Reason for Visit * Reason Comments Follow-up Nehemias foot pain Encounter Details Date Type Department Care Team (Late st Contact Info) Description 11/03/2024 8:15 AM EST Office Visit Orthopedic Surgery [facility] [address] [phone] Matthew Hall DPM [address] [phone] Follow-up exam (Primary Dx); Metatarsalgia of right foot; Neuritis Social History Tobacco Use Types Packs/Day Years Used Date Smoking Tobacco: Never Assessed Comments Unknown Sex and Gender Information Value Date Recorded Sex Assigned at Not on file Legal Sex Female 11:39 AM EDT Gender Identity Not on file Sexual Orientation Not on file documented as of this [...] Mass Index 36.02 11/03/2024 8:11 AM EST documented in this encounter Plan of Treatment Upcoming Encounters Date Type Department Care Team (Late st Contact Info) Description 02/09/2025 8:15 AM EDT Office Visit Orthopedic [facility] [address] [phone] Matthew Hall DPM [address] [phone] Pending Results Name Type Priority Associated Diagnoses Date /Time XR Foot 3+ Views Right Imaging Routine Follow-up exam 11/03/2024 8:26 AM EST Scheduled Orders Name Type Priority Associated Diagnoses Orde r Schedule XR Foot 3+ Views Right Imaging Routine Follow-up exam Expected: 11/03/2024, Expires: 11/03/2025 documented as of this encounter Visit Diagnoses Diagnosis Follow-up exam- Primary Unspecified follow-up examination Metatarsalgia of right foot Neuritis Unspecified neuralgia, neuritis, and radiculitis documented in this encounter Care Teams Despatching And Receiving Clerk Relationship Specialty Start Date End Date Manolo Bonilla MD [address] [place] [address] Dr Leonel [place] PCP - General 05/05/24 documented as of this encounter
== END 2024-11-03 10:32 | disposition home or self-care (01) ==
PROVIDERS: PCP Family Medicine; Visit Provider Dietitian, Registered
DX: R73.03 Prediabetes (principal)

== ENCOUNTER → 2024-11-03 09:34 | Outpatient (BNVA) | payer OTHER, SELFPAY | PROVIDERS: PCP Family Medicine; Visit Provider Dietitian, Registered | DX: E11.9 Type 2 diabetes mellitus without complications (principal); E66.9 Obesity, unspecified; Z68.34 Body mass index [BMI] 34.0-34.9, adult; R03.0 Elevated blood-pressure reading, without diagnosis of hypertension; K43.2 Incisional hernia without obstruction or gangrene; R25.2 Cramp and spasm; Z80.0 Family history of malignant neoplasm of digestive organs; Z71.3 Dietary counseling and surveillance | CPT/HCPCS: 83036; 97803; 99212 ==

== ENCOUNTER 2024-11-03 15:22 | Outpatient (AMB) | payer OTHER, SELFPAY ==
--- NOTE | 2024-11-03 15:46 | MHC.PC.OV ---
Vital Signs 11/03/24 15:55 Height 5 ft 4 in Weight 200 lb 4 oz BMI 34.4 BP 128/70 Blood Pressure Location Lt brachial Position Sitting Respiration 14 Pulse 93 Pulse Source Pulse Oximeter Temp 99.5 F Temp Source Oral Pulse Oximetry (%) 96 Oxygen Delivery Method Room Air Intake Visit Reasons: f/u pre-diabetes Intake Note: follow pre-dm Edge Stripper Required: No Allergies omeprazole [OMEPRAZOLE] Allergy (Severe, Verified 11/03/24 15:53) N/V tramadol [From Ultram] Allergy (Intermediate, Verified 11/03/24 15:53) ITCHING ibuprofen [From Motrin] Allergy (Verified 11/03/24 15:53) Unknown Tobacco use date assessed: 05/01/24 Dental Screening Dental Screen Date: 05/01/24 HPI f/u pre-diabetes HPI Details 64 y/o female presents to f/u pre-diabetes. Hx of elevated BP readings but no diagnosis of hypertension. Blood pressure today 128/70, 93p. Last A1c in April 6.3%. A1c today 11/03/24 is 6.5%. Has complaints of muscle crampings - on her legs, arms. She notes she tries to keep herself hydrated. HPI Comments History of Present Illness Details Documentation assistance for Manolo Bonilla MD, was provided by Abel Gómez,? Grain Elevator Agent on 11/03/2024 at 4:09 PM ENOC. I, Dr. Bonilla, have read, observed, and verified documentation. ?? [facility] Medical History Prediabetes Hypertriglyceridemia Elevated blood pressure reading Bilateral foot pain Incisional hernia Parastomal hernia Subcutaneous abscess Seborrheic dermatitis Migraines Fatty liver disease, nonalcoholic Sinusitis Ileostomy in place Dizziness Recurrent vomiting Gastroparesis Intra-abdominal abscess Intra-abdominal abscess Fever of unknown origin Leukocytosis Shock Perforated viscus COVID-19 vaccine series completed Environmental allergies PONV (postoperative nausea and vomiting) Thoracic disc herniation Herniated cervical disc Back pain Fibromyalgia Hx of migraines Crohn's disease Iron deficiency anemia Carpal tunnel syndrome Arthritis Vitamin D deficiency GERD (gastroesophageal reflux disease) Surgical History S/P colectomy Status post colostomy Hx of shoulder surgery History of surgery Hx of fusion of cervical spine Hx of cholecystectomy History of tonsillectomy History of esophagogastroduodenoscopy (EGD) History of tubal ligation Hx of colonoscopy Family History Paternal Grandmother High blood pressure High cholesterol Mother Throat cancer Alcoholism Alcohol abuse Maternal Grandmother Breast cancer Paternal Grandfather Prostate cancer Family/Other High blood pressure Father Alcohol abuse Daughter FH: mental illness Social History Household Members: Spouse and Family Household Members Other:: [place] Housing: House Are you a primary district manager primary care sales to a significant other at home: No Do you presently have visiting nurse or other home services: No Unable to assess alcohol history related to: Unknown Alcohol intake: former Comment: restraints Patient Tobacco Use Status: Former Tobacco user Tobacco use type: Cigarette e-Cigarette/Vaping Use: Never Used Second Hand Smoke Exposure: No Advance Directives Date on File: 08/08/22 service: No Current occupational status: employed 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 1. Little interest or pleasure in doing things: not at all 2. Feeling down, depressed, or hopeless: not at all 3. Trouble falling or staying asleep, or sleeping too much: not at all 4. Feeling tired or having little energy: nearly every day 5. Poor appetite or overeating: more than half the days 6. Feeling bad about yourself - or that you are a failure or have let yourself or your family down: not at all 7. Trouble concentrating on things, such as reading the newspaper or watching television: not at all 8. Moving or speaking so slowly that other people could have noticed. Or the opposite - being so fidgety or restless that you have been moving around a lot more than usual: not at all 9. Thoughts that you would be better off or of hurting yourself in some way: not at all Total score: 5 Source: Developed by Drs. Shamar Diaz, Janene Yates, Lavon Serna and colleagues, with an educational lo from [employer]. Thrive Questionnaire Date Thrive assessed: 10/27/24 I am a: Patient What is your living situation today?: I have a steady place to live Within the past 12 months, did the food you bought not last and you didn't have the money to get more?: Never true Within the past 12 months, did you worry whether your food would run out before you got money to buy more?: Never true Do you have trouble paying for medicines?: No Do you have trouble getting transportation to medical appointments?: No Do you have trouble paying your heating and electricity bill?: No Do you have trouble taking care of your child, family member or friend?: No Do you have trouble with day-to-day activities such as bathing, preparing meals, shopping, managing finances, etc.?: No Are you currently unemployed and looking for a job?: No Are you interested in more education?: No Please select the resources that you would like help with: None Currently or been in a relationship where the following occur: No concerns reported THRIVE Score: 0 AUDIT C Alcohol Use Questionnaire (AUDIT-C) 1. How often do you have a drink containing alcohol?: Never Total Score: 0 BRANDON-7 AMB Questionnaire BRANDON-7 Date BRANDON - 7 assessed: 05/01/24 Feeling nervous, anxious, or on edge: 0 = Not at all Not being able to stop or control worryin = Not at all Worrying too much about different things: 0 = Not at all Trouble relaxin = Not at all Being so restless that it is hard to sit still: 0 = Not at all Becoming easily annoyed or irritable: 0 = Not at all Feeling afraid as if something awful might happen: 0 = Not at all Total BRANDON-7 score (0-4 normal; 5-9 mild; 10-14 moderate; 15-21 severe): 0 Source: Developed by Drs. Shamar Diaz, Janene Yates, Lavon Serna and colleagues, with an educational lo from [employer]. Review of Systems Const Denies chills, Denies fatigue, Denies fever(s), Denies headache(s) and Denies weakness ENT Denies dizziness and Denies headache(s) Card Denies dyspnea Resp Denies cough, Denies dyspnea, Denies wheezing and Denies other (shortness of breath) Musc Denies numbness and Denies tingling Neuro Denies dizziness, Denies headache(s), Denies numbness, Denies tingling and Denies weakness Psych Denies anxiety and Denies depression Endo Denies fatigue Aller/Immun Denies wheezing Physical exam (Primary Care) Vital Signs: Last Vital Signs Temp 99.5 F 11/03/24 15:55 Pulse 93 11/03/24 15:55 Resp 14 11/03/24 15:55 BP 128/70 11/03/24 15:55 Pulse Ox 96 11/03/24 15:55 Oxygen Delivery Method Room Air 11/03/24 15:55 BMI result Body Mass Index 34.4 Tobacco/Smoking Status: Tobacco use Status Tobacco use date assessed 05/01/24 11/03/24 15:48 Patient Tobacco Use Status Former Tobacco user 11/03/24 15:48 Tobacco use type Cigarette 11/03/24 15:48 e-Cigarette/Vaping Use Never Used 11/03/24 15:48 PHQ-9: PHQ-9 Score PHQ-9: Total score 5 11/03/24 16:07 Thrive Assessment: Date of Thrive Assessment Date Thrive assessed 10/27/24 11/03/24 15:48 Currently or been in a relationship where the following occur: No concerns reported Const General: well developed; No acute distress Nutritional Appearance: well nourished Orientation/consciousness: patient oriented x3 HENMT Head: Yes normocephalic and Yes atraumatic Eyes General: appearance normal, both eyes and all related structures Pupils: Equal, round and reactive pupils present EOM: EOMs intact bilaterally Resp Effort & Inspection: normal respiratory effort Auscultation: clear to auscultation bilaterally Cardio Rate: regular rate Rhythm: regular rhythm Heart sounds: S1 normal heart sound present, S2 normal heart sound present, no gallops, no murmurs and no rubs Neuro General: patient oriented x3 and gait normal Cranial nerves: Yes Equal, round and reactive pupils present Psych Affect: normal affect Coding Level of Care Code Est Pt Level 4 (56928) Diagnoses Diabetes E11.9 Obesity E66.9 Elevated blood pressure reading R03.0 Incisional hernia K43.2 Muscle cramping R25.2 Family history of Mccoy syndrome Z80.0 Assessment & Plan Assessment & Plan (1) Diabetes: Code(s): E11.9 - Type 2 diabetes mellitus without complications Category: Medical Plan: A1c?6.5% Will?send?a?script?for?Brandoro?which?will?help?with?weight?loss?as?patient?has?gained?about?45?lb?lower?than?last?year. If?she?is?on?due?to?get?this?she?will?start?metformin Continue?working?on?diet?low?in?sugars?and?starches?and?working?on?weight?loss (2) Obesity: Code(s): E66.9 - Obesity, unspecified Category: Medical Plan: As?above (3) Elevated blood pressure reading: Code(s): R03.0 - Elevated blood-pressure reading, without diagnosis of hypertension Category: Medical Plan: Blood?pressure?is?okay. Will?continue?to?monitor?periodically (4) Incisional hernia: Code(s): K43.2 - Incisional hernia without obstruction or gangrene Category: Medical Plan: Stable Follow-up?with?surgery?as?recommended (5) Muscle cramping: Code(s): R25.2 - Cramp and spasm Category: Medical Plan: Patient?has?muscle?cramping She?is?drinking?an?energy?drink?each?day Recommended?she?discontinue?this Hydrate?well Will?check?labs (6) Family history of Mccoy syndrome: Code(s): Z80.0 - Family history of malignant neoplasm of digestive organs Category: Medical Plan: Patient?notes?that?several?family?members?have?Mccoy?syndrome?and?history?of?colon?cancer Referred?to?Genetics Orders: Orders Comprehensive [place]. Panel Fast Today R25.2 - Cramp and spasm, Z00.00 - Encounter for general adult medical examination without abnormal findings TSH reflex Free T4 Today R25.2 - Cramp and spasm, Z00.00 - Encounter for general adult medical examination without abnormal findings UA and rflx microscopic Today R25.2 - Cramp and spasm, Z00.00 - Encounter for general adult medical examination without abnormal findings Magnesium Today R25.2 - Cramp and spasm Referrals Genetics Referral Z80.0 - Family history of malignant neoplasm of digestive organs Medications: New metformin 250 mg (1/2 x 500 mg) PO DAILY 30 days 15 tabs 2RF tirzepatide (Mounjaro) for 4 weeks 2.5 mg (0.5 mL) subcut QWEEK 30 days 2.5 mL 3RF
[2024-11-03 15:55] VITALS: BP 128/70; PULSE 93; RESP 14; TEMP 37.5; O2SAT 96; BMI 34.4
--- OUTSIDE RECORDS SUMMARY | 2024-11-03 17:36 | XMS_ITS | Patient Health Record ---
Author Organization [facility] Address [address] [place] [phone] Care Team Providers Care Geospatial Technician Name Role Phone Deandre Younger MD Primary Care Provider UnavailRamu Rhodes Jr Unavailable MARIANO LANDIS Unavailable Unavailable ALLERGIES Allergen (clinical drug ingredient) Drug/Non Drug Allergy documented on EMR Reaction Allergy Type Onset Date Status tramadol Ultram Unknown Drug Allergy Active omeprazole Omeprazole Unknown Drug Allergy Activ e REASON FOR REFERRAL No Information MEDICATIONS Medication SIG (Take, Route, Frequency, Duration) Notes Start Date End Date Status Claritin Active Cymbalta Active DULoxetine HCl 60 MG Oral for 90 Active Pantoprazole Sodium 40 MG TAKE 1 TABLET BY MOUTH EVERY DAY for 90 Active Tylenol Active Methocarbamol Active Topamax 200 MG 1 tablet Orally twic e a day Active Imitrex 100 MG 1 tablet as needed O rally Once a day Active Mesalamine ER 0.375 GM TAKE 4 CAPSULES B Y MOUTH EVERY MORNING 90 for 90 Active Robaxin Active Centrum Silver - as directed Orally o nce a day Active IMMUNIZATIONS Vaccine Route Administration Date Status Comme nts Influenza Unknown 07/25/2018 Administered Influenza Unknown 06/17/2019 Administered Influenza Unknown 05/19/2020 Administered SOCIAL HISTORY Sex Assigned At : Social History Observation Description Sex Assigned At Unknown Alcohol Screen Question Answer Notes Did you have a drink containing alcohol in the p ast year? No Points 0 Interpretation Negative PROBLEMS Problem Type ICD Code Onset Dates Problem Status W/U Status Risk SNOMED Code Notes Problem Gastro-esophageal reflux disease without esophagitis (K21.9) Active confirmed 397480692 Problem Nausea (R11.0) Active confirmed 2598157 07 Problem Gastroesophageal reflux disease (K21.9) Active confirmed Gastroesophagea l reflux disease (756165668) Problem Crohns disease of both small and large intestine without complication (K50.80) Active confirmed 69694547 Problem Gastroesophageal reflux disease without esophagitis (K21.9) Active confirmed 381007536 Problem Colitis (K52.9) Active confirmed 022619 04 Problem Diarrhea, unspecified type (R19.7) Active confirmed 08636817 Problem Irritable bowel syndrome with constipation (K58.1) Active confirmed 071145097 Problem Crohn's disease of colon without complication (K50.10) Active confirmed 60393367 PLAN OF TREATMENT Pending Test Test Name Order Date PROFILE, RANDOM 12/27/2016 LIVER PROFILE 12/27/2016 AMYLASE 12/27/2016 CBC w DIFF 12/27/2016 SED RATE (ESR) 12/27/2016 CT ABD & PELVIS WITH CONTRAST 12/27/2016 MRI ABD W&WO CONTRAST 12/05/2017 NUC GASTRIC ANTRUM EMPTYING 07/01/2021 Future Test Test Name Order Date COLONOSCOPY 10/26/2011 COLONOSCOPY 11/13/2014 COLONOSCOPY 03/14/2017 UPPER GI ENDOSCOPY 06/05/2018 COLONOSCOPY 06/05/2018 UPPER GI ENDOSCOPY 05/19/2021 Insurance Providers Payer Name Payer Address Payer Phone Subscriber Number Group Number Insured Name Patient Relationship to Insured Coverage Start Date Coverage End Date [employer] [place] [address] [address] [place] [address] [id number] Ju Pereyra Self - patient is the insured MEDICAL (GENERAL) HISTORY Medical History History ICD Code esophageal reflux low vitamin D level arthritis carpal tunnel syndrome Denies MO,DM,CVA,Lung disease,renal dise ase iron deficiency anemia Crohn's colitis, last colonoscopy 2018, no active disease. Surgical History Surgery Date(Month/Year) neck surgery cholecystectomy tubal ligation several orthopedic surgeries
--- OUTSIDE RECORDS SUMMARY | 2024-11-03 17:36 | XMS_ITS | Encounter Summary ---
Author Organization [facility] Address [address] [place] [address] Care Team Providers Care Crate Opener Name Role Phone Manolo Bonilla MD Primary Care Provider [phone] Reason for Visit * Reason Comments Follow-up Nehemias foot pain Encounter Details Date Type Department Care Team (Late st Contact Info) Description 11/03/2024 8:15 AM EST Office Visit Orthopedic Surgery [facility] [address] [phone] Matthew Hall DPM [address] [phone] Follow-up exam (Primary Dx); Metatarsalgia of right [...] 02/09/2025 8:15 AM EDT Office Visit Orthopedic [facility] [address] [phone] Matthew Hall DPM [address] [phone] Pending Results Name Type Priority Associated Diagnoses [...] radiculitis documented in this encounter Care Teams Crate Opener Relationship Specialty Start Date End Date Manolo Bonilla MD [address] [place] [address] Dr Leonel [place] PCP - General 05/05/24 documented as of this encounter
--- OUTSIDE RECORDS SUMMARY | 2024-11-03 17:36 | XMS_ITS | Clinical Summary ---
Author Organization [address] [facility] Address [address] [place] [address] Phone Care Team Providers Care Routing Clerk Name Role Phone Manolo Bonilla MD [...] 8:15 AM EST Office Visit Orthopedic Surgery [facility] [address] [phone] Matthew Hall DPM Follow-up exam (Primary Dx); Metatarsalgia of right foot; Neuritis 09/15/2024 1:30 PM EST Office Visit Orthopedic Surgery [place] [address] [phone] Matthew Hall DPM Neuritis (Primary Dx); Metatarsalgia [...] 02/09/2025 8:15 AM EDT Office Visit Orthopedic [address] [phone] Matthew Hall DPM [address] [phone] Health Maintenance Due Date Last Done Comments [...] patient's age to complete this topic Insurance [facility] [employer] Care Teams Routing Clerk Relationship Specialty Start Date End Date Manolo Bonilla MD [address] [place] [address] Dr Leonel [place] PCP - General 05/05/24
--- OUTSIDE RECORDS SUMMARY | 2024-11-03 17:36 | XMS_ITS ---
Author Organization Shamar Do III, MD Address [address] [place] [address] [address] [address] Care Team Providers Care Apartment Hotel Manager Name Role Phone Manolo Bonilla Primary Care Provider Unavailab Shamar Munguia Unavailable [phone] Allergies Allergen (clinical drug ingredient) Drug/Non Drug Allergy documented on EMR Reaction Allergy Type Onset Date Status tramadol Ultram Unknown Drug Allergy Active omeprazole Omeprazole Unknown Drug Allergy Activ e REASON FOR VISIT Leukopenic, Thrombocytopenia, HPV, Hypertension, Overweight Medications Medication SIG (Take, Route, Frequency, Duration) Notes Start Date End Date Status Vitamin D3 Active Methocarbamol Active DULoxetine HCl Activ e Ajovy 225 MG/1.5ML as directed Subcutaneous once a month Active Centrum Silver - Orally Act ariana Famotidine Active Ondansetron Active Rizatriptan Benzoate Active Magnesium 400 MG 2 tablets with a funmi l Orally Twice a day Active Claritin 10 MG 1 tablet Orally Once a day Active Social History Tobacco Use: Social History Observation Description Date Details (start date - stop date) Never Smoker NA - NA Sex Assigned At : Social History Observation Description Sex Assigned At Female Tobacco Use/Smoking Question Answer Notes Patient is a nonsmoker Additional Findings: Tobacco Non-User Aggressive non-smoker Problems Problem Type SNOMED Code ICD Code Onset Dates Problem Status W/U Status Risk Notes Problem 857312745 Obesity (BMI 30-39.9) (E66.9) Active confirmed Her weight has been volatile. Her body mass index is now 32.7. We have discussed lifestyle modification diet and nutrition at length. Vital Signs Temperature 98.2 degrees Fahrenheit 10/22/19 24 Blood pressure systolic 130 mm Hg 10/22/19 24 Blood pressure diastolic 80 mm Hg 024 Heart Rate 94 /min 10/22/2023 Height 62 in 10/22/2023 Weight 179 lbs 10/22/2023 BMI 32.74 kg/m2 10/22/2023 Encounters Encounter Location Date Provider Diagnosis Shamar Do III, MD [address] [place] [address] [place] [place] [address] 10/22/2023 Shamar Do Leukopenia, unspecif ied type D72.819 ; Thrombocytopenia D69.6 ; Normochromic normocytic anemia D64.9 ; HPV (human papilloma virus) infection B97.7 ; History of cholecystectomy Z90.49 and Obesity (BMI 30-39.9) E66.9 Assessments Encounter Date Diagnosis (ICD Code) Assessment Notes T reatment Notes Treatment Clinical Notes 10/22/2023 Leukopenia, unspecified type (ICD-10 - D72.819) The value is now in the normal range. She has had no recent infections. 10/22/2023 Thrombocytopenia (ICD-10 - D69.6) Her platelet count is now in the normal range and the thrombocytopenia has resolved.Review of data at [facility] shows platelets or alternatively low or high. 10/22/2023 Normochromic normocytic anemia (ICD-10 - D64.9) The hematocrit is now normal with a normal mean cell volume in the anemia has resolved. 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 I strongly recommended she continue routine and regular visits with PICKER TENDER HELPER. 10/22/2023 History of cholecystectomy (ICD-10 - Z90.49) 10/22/2023 Obesity (BMI 30-39.9 ) (ICD-10 - E66.9) Her weight has been volatile. Her body mass index is now 32.7. We have discussed lifestyle modification diet and nutrition at length. Plan Of Treatment Medication Medication Name Sig Start Date Stop Date Notes Vitamin D3 Methocarbamol DULoxetine HCl Ajovy 225 MG/1.5ML as directed Subcutaneous once a month Centrum Silver - Orally Famotidine Ondansetron Rizatriptan Benzoate Magnesium 400 MG 2 tablets with a funmi l Orally Twice a day Claritin 10 MG 1 tablet Orally Once a day Pending Test Test Name Order Date PROFILE, RANDOM (COMPREHENSIVE METABOLIC ) 10/22/2023 CBC WITH AUTO DIFF 10/22/2023 Next Appt Details Follow Up: 6 Months, Reason: OV Provider Name:Shamar Do, 04/29/2025 09:30:00 AM, [address] [place] [address] DR, [place] [address], [place], [address], Progress Notes * Ju HANKINS MDOB: (63 yo F)Acc No.[id number]:10/22/2023 Progress Notes Patient:?Ju Hankins Farshad Provider:?Shamar Do MD :1960???Age:63 Y???Sex:Female D ate:10/22/2023 Address:[address] [place] [address] [address], [id number] Pcp:Manolo Bonilla Subjective: * Chief Complaints: * ???LeukopenicThrombocytopeni aHPVHypertensionOverweight * HPI: ???COVID-19 Screening:?Questions?Have you experienced fever, chills, cough, sore throat, shortness of breath, difficulty breathing, muscle aches, loss of taste or smell??No ?Have you been exposed to the virus within the last 10 days??No ?Have you travelled internationally in the last 10 days??No ?Have you been exposed to COVID-19 in the past??Yes ? She returns to the office for follow-up of hematologic abnormalities. One year ago she had a perforated bowel but since that time has been healthy and well without abdominal pain. She had no new complaints today. The examination was normal. She reports no recent episodes of bleeding or of severe infection. * ROS:?General/Constitutional:?pain?only normal aches and pains.?Chills?denies.?Fatigue?admits.?Fever?denies.?ENT:?Decreased hearing?denies.?Respiratory:?Cough?denies.?Cardiovascular:?Chest pain with exertion?denies.?Dyspnea on exertion?denies.?Shortness of breath?denies.?Gastrointestinal:?Constipation?occasional.?Decreased appetite?denies.?Diarrhea?denies.?Heartburn?denies.?Nausea?denies.?Rectal bleeding?denies.?Vomiting?denies.?Hematology:?bruising?denies.?petechiae?denies.?Swollen glands?none have been noted.?Genitourinary:?Frequent urination?at night.?Musculoskeletal:?Muscle aches?denies.?Painful joints?denies.?Sciatica?denies.?Weakness?denies.?Skin:?Itching?denies.?Rash?denies.?Skin lesion(s)?denies.?Neurologic:?Difficulty speaking?denies.?Dizziness?denies.?Headache?denies.?Low back pain?denies.?Psychiatric:?Depressed mood?denies.? * Medical History:? * Surgical History:?tonsillect jean 1979cholecystectomy 1995cyst removal rtigh hand 2001left shoulder decompression 2007c spine fusion C5-[address] Peralta 2017Bowel perforation surgery olostomy 07/2022 * Hospitalization/Major Diagno stic Procedure:?[facility] colitis May 2017 * Family History:?Father: sugey e 81 yrs, Gout, ureterolithiasis.?Mother: 56 yrs, Complications [...] Findings: Tobacco Non-User?Aggressive non-smoker ???She lives in [place], [place]. 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 She has been exposed to hydrocarbons. She was born in [place]. He has a long-term significant other named Brandon. * Medications:?TakingVitamin D 3 Claritin 10 MG Tablet 1 tablet Orally Once a dayMagnesium 400 MG Tablet 2 tablets with a meal Orally Twice a dayCentrum Silver - Tablet Orally Rizatriptan Benzoate , Notes: as neededOndansetron , Notes: As neededAjovy 225 MG/1.5ML Solution Auto-injector as directed Subcutaneous , Notes: once a monthDULoxetine HCl 20 MG Capsule Delayed Release Particles 1 capsule Orally Twice a dayTaking Vitamin D3 Taking Claritin 10 MG Tablet 1 tablet Orally Once a dayTaking Magnesium 400 MG Tablet 2 tablets with a meal Orally Twice a dayTaking Centrum Silver - Tablet Orally Taking Rizatriptan Benzoate , Notes: as neededTaking Ondansetron , Notes: As neededTaking Ajovy 225 MG/1.5ML Solution Auto-injector as directed Subcutaneous , Notes: once a monthTaking DULoxetine HCl 20 MG Capsule Delayed Release Particles 1 capsule Orally Twice a dayDiscontinuedFamotidine Methocarbamol Medication List reviewed and reconciled with the patientDiscontinued Famotidine Discontinued Methocarbamol Medication List reviewed and reconciled with the patient * Allergies:?OmeprazoleUltramn o[Allergies Verified] Objective: * Vitals:?Ht: 62, Wt: 179, BMI :32.74, BP: 130/80, HR: 94, Temp: 98.2, Wt-k.19. * Examination: ???General Examination: ?GENERAL APPEARANCE:?pleasant, well [...] sounds normal, no ascites, no organomegaly, no mass, Healed surgical incision.?RECTAL EXAM:?not examined.?MUSCULOSKELETAL:?extremities unremarkable, no clubbing, cyanosis or edema.?PERIPHERAL PULSES:?normal.?NEUROLOGIC:?alert and oriented, cranial nerves 2-12 grossly intact, deep tendon reflexes 2+ symmetrical, motor strength normal upper and lower extremities, sensory exam intact.?PSYCH:?alert, oriented.? Assessment: * Assessment: 1.?Leukopenia, unspecified t ype - D72.819 (Primary), The value is now in the normal range. She has had no recent infections.?2.?Thrombocytopenia - D69.6, Her platelet count is now in the normal range and the thrombocytopenia has resolved.Review of data at [facility] shows platelets or alternatively low or high.?3.?Normochromic normocytic anemia - D64.9, The hematocrit is now normal with a normal mean cell volume in the anemia has resolved.?4.?HPV (human papilloma virus) infection - B97.7, The HPV DNA was found to thousand 12, but not in 2015. I strongly recommended she continue routine and regular visits with PICKER TENDER HELPER.?5.?History of cholecystectomy - Z90.49?6.?Obesity (BMI 30-39.9) - E66.9, Her weight has been volatile. Her body mass index is now 32.7. We have discussed lifestyle modification diet and nutrition at length.? Plan: * Treatment: 2.?Others? Continue Claritin Tablet, 10 MG, 1 tablet, [...] or Other reason not done * Follow Up:?6 Months (Reason: OV) * Images: * Sign off status: Completed true * Provider:?Shamar Do MD Date:?10/11 Generated for Jakob danielle/Juan/Mioitting on:?11/03/2024 10:22 AM EST History and Physical Notes * HPI (History of Present Illness) Category Sub-Category Detail Notes COVID-19 Screening Questions Have you had any new onset fever, chills, cough, congestion, sore throat, shortness of breath, muscle aches?: No Have you been exposed to the virus withi n the last 10 days?: No Have you travelled internationally in e last 10 days?: No Have you been [...] sounds normal, no ascites, no organomegaly, no mass, Healed surgical incision NEUROLOGIC: alert and oriented, cranial nerves 2-12 grossly intact, deep tendon reflexes 2+ symmetrical, motor strength normal upper and lower extremities, sensory exam intact SKIN: no suspicious lesion s, anicteric PERIPHERAL PULSES: normal BREASTS: not examined MUSCULOSKELETAL: extremities unremark able, no clubbing, cyanosis or edema LYMPH NODES: no enlarged lymph no linda,spleen normal RECTAL EXAM: not examined PSYCH: alert, oriented ORAL CAVITY: normal, unremarkable
== END 2024-11-03 16:25 | disposition home or self-care (01) ==
PROVIDERS: PCP Family Medicine; Visit Provider Family Medicine
DX: E11.9 Type 2 diabetes mellitus without complications (principal)

== ENCOUNTER 2024-11-12 13:09 | Outpatient (REF) | payer OTHER, SELFPAY ==
[2024-11-12 14:17] LABS: Appearance Urine Clear; Color Urine Dark Yellow; Glucose Urine UA Negative (Negative); Leukocyte Esterase Urine Negative (Negative); Nitrite Urine Negative (Negative); Specific Gravity - Urine 1.025 (1.005-1.025); Urine Blood Negative (Negative); Urine Ketones Trace mg/dL (Negative); Urine Protein Negative (Neg-Trace)
[2024-11-12 14:39] LABS: Alanine Aminotransferase 94 U/L (0-31); Albumin Level 4.2 g/dL (3.5-5.0); Alkaline Phosphatase 198 U/L (39-117); Anion Gap 9 (12-20); Aspartate Amino Transferase 82 U/L (5-31); Bilirubin Total 0.3 mg/dL (0.0-1.0); Blood Urea Nitrogen 15 mg/dL (9-16); Calcium 9.4 mg/dL (8.4-10.2); Carbon Dioxide 30 mmol/L (22-29); Chloride 104 mmol/L (96-108); Estimated Glomerular Filt Rate > 60; Glucose Fasting 116 mg/dL (60-99); Potassium 3.7 mmol/L (3.3-5.1); Sodium 139 mmol/L (135-145)
[2024-11-12 15:08] LABS: TSH reflex Free T4 1.94 uIU/mL (0.32-4.0)
--- OUTSIDE RECORDS SUMMARY | 2024-11-12 15:38 | XMS_ITS | Patient Health Record ---
Author Organization Shamar Do III, MD Address [address] [place] [address] [address] [place] [address] Care Team Providers Care Water Plant Operator Name Role Phone Manolo Bonilla Primary Care Provider Unavailab Shamar Munguia Unavailable [phone] Allergies Allergen (clinical drug ingredient) Drug/Non Drug [...] Problem Status W/U Status Risk Notes Problem 073933445 Thrombocytopenia (D69.6) Active confirmed Her platelet count has returned to normal and she has had no bleeding or clotting. Problem 728024272 Obesity (BMI 30-39.9) (E66.9) Active confirmed Her weight has been volatile. Her body mass index is now 32.7. We have discussed lifestyle modification diet and nutrition at length. Problem 44747729 Essential hypertension (I10) Active confirmed Her blood pressure is currently normal and no change in her regimen is necessary. The value is 122/82. I recommended weight loss and sodium restriction. Problem 57906982 Degenerative dis c disease, cervical (M50.30) Active confirmed Problem 281981828 History of cholecystectomy (Z90.49) Active confirmed Problem 13828042 Leukopenia, unspecified type (D72.819) Active confirmed The value is now in the normal range. She has had no recent infections. Problem 13287295 Normochromic normocytic anemia (D64.9) Active confirmed The hematocrit and mean cell volume are now normal. Problem 740873246 HPV (human papilloma virus) infection (B97.7) Active confirmed The HPV DN A was found to thousand 12, but not in 2015. I strongly recommended she continue routine and regular visits with ITEM PROCESSOR. Problem 772383115 H/O tubal ligati on (Z98.51) Active confirmed Vital Signs Heart Rate 80 /min 04/28/2024 Temperature 99.9 degrees Fahrenheit 04/28/2024 Blood pressure diastolic 91 mm Hg 04/28/2024 Height 62 in 04/28/2024 Blood pressure systolic 149 mm Hg 04/28/2024 Weight 195 lbs 04/28/2024 BMI 35.66 kg/m2 04/28/2024 Encounters Encounter Location Date Provider Diagnosis Shamar Do III, MD [address] [place] [address] [place] [address] 04/28/2024 Shamar Do Leukopenia, unspecif ied type [...] Order Date PROFILE, RANDOM (COMPREHENSIVE METABOLIC ) 09/23/2019 PROFILE, RANDOM (COMPREHENSIVE METABOLIC ) 09/05/2018 PROFILE, RANDOM (COMPREHENSIVE METABOLIC ) 10/22/2023 PROFILE, RANDOM (COMPREHENSIVE METABOLIC ) 03/21/2021 PROFILE, RANDOM (COMPREHENSIVE METABOLIC ) 03/23/2020 PROFILE, RANDOM (COMPREHENSIVE METABOLIC ) 04/28/2024 PROFILE, RANDOM (COMPREHENSIVE METABOLIC ) 04/24/2022 PROFILE, RANDOM (COMPREHENSIVE METABOLIC ) 03/18/2019 PROFILE, RANDOM (COMPREHENSIVE METABOLIC ) 03/12/2018 PROFILE, RANDOM (COMPREHENSIVE METABOLIC ) 09/20/2020 CBC w DIFF 09/20/2020 CBC w DIFF 09/23/2019 CBC w DIFF 09/05/2018 CBC w DIFF 03/21/2021 CBC w DIFF 03/23/2020 CBC w DIFF 04/28/2024 CBC w DIFF 04/24/2022 CBC w DIFF 03/18/2019 CBC w DIFF 03/12/2018 CBC w DIFF 04/30/2023 CBC with MANUAL DIFFERENTIAL 09/17/2018 CBC WITH AUTO DIFF 10/22/2023 Next Appt Details Provider Name:Shamar Do, 04/29/2025 09:30:00 AM, [address] [place] [address] [address], [place], [address], Insurance Providers Payer Name Payer Address Payer Phone Subscriber Number Group Number Insured Name Patient Relationship to Insured Coverage Start Date Coverage End Date [facility] [address] [place] [address] [id number] Ju Hankins Self - patient is the [...] 1994 tonsillectomy 1979 Hospitalization History Reason Date(Month/Year) [facility] May 2017
--- OUTSIDE RECORDS SUMMARY | 2024-11-12 15:38 | XMS_ITS ---
Author Organization Shamar Do III, MD Address [address] [place] [address] [place] [address] Care Team Providers Care Production Recorder Name Role Phone Manolo Bonilla Primary Care Provider Unavailab Shamar Munguia Unavailable [phone] REASON FOR VISIT Follow up Social History Sex Assigned At : Social History Observation Description Sex Assigned At Female Encounters Encounter Location Date Provider Diagnosis Shamar Do III, MD [address] [place] [address] [place] [address] 04/21/2024 Shamar Do Plan Of Treatment Next Appt Details Provider Name:Shamar Do, 04/29/2025 09:30:00 AM, [address] [place] [address] [place], [address], Progress Notes * Ju HANKINS MDOB: (64 yo F)Acc No.[id number]:04/21/2024 Progress Notes Patient:?Ju HANKINS Provider:?Shamar Do MD :1960???Age:64 Y???Sex:Female D ate:04/21/2024 Address[address] [id number] Pcp:Manolo Bonilla Subjective: * Chief Complaints: * [...] Do MD Date:?04/10 Generated for Jakob danielle/Juan/Latosha on:?11/12/2024 03:38 PM EST
--- OUTSIDE RECORDS SUMMARY | 2024-11-12 15:38 | XMS_ITS | Encounter Summary ---
Author Organization [facility] Address [address] [place] [address] Care Team Providers Care Safety Attendant Name Role Phone Manolo Bonilla MD Primary Care Provider [phone] Reason for Visit * Reason Comments Follow-up Nehemias foot pain Encounter Details Date Type Department Care Team (Late st Contact Info) Description 11/03/2024 8:15 AM EST Office Visit Orthopedic Surgery - [place] [address] [phone] Matthew Hall DPM [address] [address] Follow-up exam (Primary Dx); Metatarsalgia of right [...] 8:11 AM EST documented in this encounter Progress Notes * Matthew Hall DPM - 11/03/2024 8:15 AM EST S Patient presents today complaining pain numbness burning [...] her as well and pain discomfort a improved to a 2 or 3 out of 10 she does shoot me the top medication some improvement ROS: GENERAL: Pt denies nausea, fever, vomiting, [...] have been marked as taking for the 11/03/24 encounter (Office Visit) with Matthew Hall DPM. ALLERGIES: Allergies Allergen Reactions Ibuprofen Omeprazole Tramadol PHYSICAL EXAM: Visit Vitals Ht 1.575 m (62.01 ) Wt 89.4 kg (197 lb) BMI 36.02 kg/m?? BSA 1.9 m?? PODIATRIC EXAMINATION: GENERAL: [...] metatarsal head right foot IMAGING: IMPRESSION: 1. Follow-up exam 2. Metatarsalgia of right foot 3. Neuritis PLAN: Pt was seen and examined, history reviewed. EMG/NCV study reviewed consistent with neuropathy neuritis of the lower extremity L4 S1 Voltaren gel prescribed for neuritis and metatarsalgia X-rays of the right foot reviewed Offloading padding placed and insoles help offload the fifth metatarsal head Follow-up in 3 months Matthew Hall DPM documented in this encounter Plan of Treatment Upcoming Encounters Date Type Department Care Team (Late st Contact Info) Description 02/09/2025 8:15 AM EDT Office Visit Orthopedic Surgery - [place] [address] [address] Matthew Hall DPM [address] [address] documented as of this encounter Results * XR Foot 3+ Views Right (11/03/2024 8:26 AM EST) Anatomical Region Laterality Modality Lower Extremities, Foot Right Computed Radiography Narrative 11/03/2024 6:25 PM EST Right foot ??3 views No fracture. No radiopaque foreign joint spaces normal Foot position rectus Normal talus navicular position normal calcaneal inclination normal symes line talus navicular joint to calcaneal cuboid joint Matthew Hall DPM IMG XR PROCEDURES Final R esult documented in this encounter Visit Diagnoses Diagnosis Follow-up exam- Primary Unspecified follow-up examination Metatarsalgia of right foot Neuritis Unspecified neuralgia, neuritis, and radiculitis documented in this encounter Care Teams Safety Attendant Relationship Specialty Start Date End Date Manolo Bonilla MD [address] [facility] [address]onel [place] PCP - General 05/05/24 documented as of this encounter
--- OUTSIDE RECORDS SUMMARY | 2024-11-12 15:39 | XMS_ITS ---
Author Organization Shamar Do III, MD Address [address] [place] [address] [address] [address] Care Team Providers Care Qa Software Tester Name Role Phone Manolo Bonilla Primary Care Provider Unavailab Shamar Munguia Unavailable [phone] Allergies Allergen (clinical drug ingredient) Drug/Non Drug [...] Date Provider Diagnosis Shamar Do III, MD [address] [place] [address] [address] [address] 04/28/2024 Shamar Do Leukopenia, unspecif ied type [...] labs Provider Name:Shamar Do, 04/29/2025 09:30:00 AM, [address] [place] [address] [address], [place], [address], Progress Notes * Ju HANKINS MDOB: (64 yo F)Acc No.[id number]:04/28/2024 Progress Notes Patient:?Ju Hankins Provider:?Shamar Do MD :1960???Age:64 Y???Sex:Female D ate:04/28/2024 Address:[address] [place] Pcp:Manolo Bonilla Subjective: * Chief Complaints: * [...] at annual visits. A CBC done at [facility] April 28, 2024 showed a white [...] surgery 2Colostomy 07/2022 * Hospitalization/Major Diagno stic Procedure:?[facility] colitis May 2017 * Family History:?Father: [...] Findings: Tobacco Non-User?Aggressive non-smoker ???She lives in [place], [place]. 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 She has been exposed to hydrocarbons. She was born in [place]. He has a long-term significant other named [...] Do MD Date:?04/10 Generated for Printi ng/Iqrag/eTransmitting on:?11/12/2024 03:39 PM EST History and Physical Notes * HPI (History of Present Illness) Category Sub-Category Detail Notes COVID-19 Screening Questions Have you had any new onset fever, chills, cough, congestion, sore throat, shortness of breath, muscle aches?: No Have you been exposed to the virus withi n the last 10 days?: No Have you travelled internationally in [facility] last 10 days?: No Have you been [...]
--- OUTSIDE RECORDS SUMMARY | 2024-11-12 15:39 | XMS_ITS | Clinical Summary ---
Author Organization [address] [facility] Address 175 [place] [address] Phone Care Team Providers Care Web Applications Administrator Name Role Phone Manolo Bonilla MD Primary [...] 8:15 AM EST Office Visit Orthopedic Surgery [facility] [address] [address] Matthew Hall DPM Follow-up exam (Primary Dx); Metatarsalgia of right foot; Neuritis 09/15/2024 1:30 PM EST Office Visit Orthopedic Surgery [place] [address] [phone] Matthew Hall DPM Neuritis (Primary Dx); Metatarsalgia [...] 02/09/2025 8:15 AM EDT Office Visit Orthopedic [address] [phone] Matthew Hall DPM [address] [address] Health Maintenance Due Date Last Done Comments [...] on patient's age to complete this topic Procedures Procedure Name Priority Date/Time Associated Diagnosis Comments XR FOOT 3+ VIEWS RIGHT Routine 11/03/2024 8:26 AM EST Follow-up exam from Last 3 Months Results * XR Foot 3+ Views Right (11/03/2024 8:26 AM EST) Anatomical Region Laterality Modality Lower Extremities, Foot Right Computed Radiography Narrative 11/03/2024 6:25 PM EST Right foot ??3 views No fracture. No radiopaque foreign joint spaces normal Foot position rectus Normal talus navicular position normal calcaneal inclination normal symes line talus navicular joint to calcaneal cuboid joint us Matthew Hall DPM IMG XR PROCEDURES Final R esult from Last 3 Months Insurance [facility] Care Teams Web Applications Administrator Relationship Specialty Start Date End Date Manolo Bonilla MD [address] [place] [address] Dr [address]onel [place] PCP - General 05/05/24
--- OUTSIDE RECORDS SUMMARY | 2024-11-12 15:39 | XMS_ITS | Patient Health Record ---
Author Organization [facility] Address [address] [place] [address] Care Team Providers Care Step Finisher Name Role Phone Deandre Younger MD Primary Care Provider UnavailRamu Rhodes Jr Unavailable [phone] MARIANO LANDIS Unavailable Unavailable Allergies Allergen (clinical drug ingredient) Drug/Non [...] directed Orally o nce a day Active Immunizations Vaccine Route Administration Date Status Comme nts Influenza Unknown 07/25/2018 Administered Influenza Unknown 06/17/2019 Administered Influenza Unknown 05/19/2020 Administered Social History Alcohol Screen Question Answer Notes Did you have a drink containing alcohol in the p ast year? No Points 0 Interpretation Negative Section Notes: former smoker over 17 years quit 1999 former smoker over 17 years quit 1999 former smoker over 18 years quit 1999 former smoker over 18 years quit 1999 former smoker over 18 years quit 1999 former smoker over 20 years quit 1999, has an occasional cocktail former smoker over 20 years quit 1999, has an occasional cocktail Problems Problem Type SNOMED Code ICD Code Onset Dates Problem Status W/U Status Risk Notes Problem 676694040 Gastro-esophagea l reflux disease without esophagitis (K21.9) Active confirmed Problem 131867506 Nausea (R11.0) Active confirmed Problem Gastroesophageal reflux disease (958296882) Gastroesophageal reflux disease (K21.9) Active confirmed Problem 25395223 Crohns disease o f both small and large intestine without complication (K50.80) Active confirmed Problem 126974437 Gastroesophageal reflux disease without esophagitis (K21.9) Active confirmed Problem 27767514 Colitis (K52.9) Active confirmed Problem 55497236 Diarrhea, unspecified type (R19.7) Active confirmed Problem 034981285 Irritable bowel syndrome with constipation (K58.1) Active confirmed Problem 75123899 Crohn's disease of colon without complication (K50.10) Active confirmed Plan Of Treatment Pending Test Test Name [...] Coverage End Date [employer] [place] [address] [address] [place] [address] [id number] Ju Pereyra Self - patient is the insured Medical (General) History Medical History History ICD Code esophageal reflux low vitamin D level arthritis carpal tunnel syndrome Denies GA,DM,CVA,Lung disease,renal dise ase iron deficiency anemia Crohn's colitis, last colonoscopy 2018, no active disease. Surgical History Surgery Date(Month/Year) neck surgery cholecystectomy tubal ligation several orthopedic surgeries
--- OUTSIDE RECORDS SUMMARY | 2024-11-12 15:39 | XMS_ITS ---
Author Organization Shamar Do III, MD Address [address] [place] [address] [address] [address] Care Team Providers Care Project Development Manager Name Role Phone Manolo Bonilla Primary Care Provider Unavailab Shamar Munguia Unavailable [phone] Allergies Allergen (clinical drug ingredient) Drug/Non Drug [...] Problem Status W/U Status Risk Notes Problem 044272064 Obesity (BMI 30-39.9) (E66.9) Active confirmed Her [...] Provider Diagnosis Shamar Do III, MD [address] [place] [address] [address] [facility] [address] 10/22/2023 Shamar Do Leukopenia, unspecif ied type [...] the thrombocytopenia has resolved.Review of data at [facility] shows platelets or alternatively low or high. 10/22/2023 Normochromic normocytic anemia (ICD-10 - D64.9) The hematocrit is now normal with a normal mean cell volume in the anemia has resolved. 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 I strongly recommended she continue routine and regular visits with MULE OPERATOR. 10/22/2023 History of cholecystectomy (ICD-10 - Z90.49) [...] OV Provider Name:Shamar Do, 04/29/2025 09:30:00 AM, [address] [place] [address] DR, [place] [address], [place], [address], Progress Notes * Ju HANKINS MDOB: (63 yo F)Acc No.[id number]:10/22/2023 Progress Notes Patient:?Ju Hankins Farshad Provider:?Shamar Do MD :1960???Age:63 Y???Sex:Female D ate:10/22/2023 Address[address] [address], [facility] Pcp:Manolo Bonilla Subjective: * Chief Complaints: * [...] surgery olostomy 07/2022 * Hospitalization/Major Diagno stic Procedure:?[facility] colitis May 2017 * Family History:?Father: sugey [...] Findings: Tobacco Non-User?Aggressive non-smoker ???She lives in [place], [place]. 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 She has been exposed to hydrocarbons. She was born in [place]. He has a long-term significant other named [...] the thrombocytopenia has resolved.Review of data at [facility] shows platelets or alternatively low or high.?3.?Normochromic normocytic anemia - D64.9, The hematocrit is now normal with a normal mean cell volume in the anemia has resolved.?4.?HPV (human papilloma virus) infection - B97.7, The HPV DNA was found to thousand 12, but not in 2015. I strongly recommended she continue routine and regular visits with MULE OPERATOR.?5.?History of cholecystectomy - Z90.49?6.?Obesity (BMI 30-39.9) - [...] Provider:?Shamar Do MD Date:?10/11 Generated for Jakob danielle/Juan/Latosha on:?11/12/2024 03:39 PM EST History and Physical [...]
== END 2024-11-12 13:10 | disposition home or self-care (01) ==
LOC: HO.WFDLDS 13:09
PROVIDERS: Visit Provider Family Medicine
DX: Z00.00 Encounter for general adult medical examination without abnormal findings (principal); R25.2 Cramp and spasm
CPT/HCPCS: 36415; 80053; 81003; 83735; 84443

== ENCOUNTER 2024-11-28 13:29 | Outpatient (AMB) | payer OTHER, SELFPAY ==
--- NOTE | 2024-11-28 13:23 | MHC.PC.OV ---
Intake Visit Reasons: f/u labs via telemedicine Intake Note: Follow up lab results. Has had a cough, fever, and runny nose since Sunday. Utility Pipe Layer Required: No Allergies omeprazole [OMEPRAZOLE] Allergy (Severe, Verified 11/28/24 13:24) N/V tramadol [From Ultram] Allergy (Intermediate, Verified 11/28/24 13:24) ITCHING ibuprofen [From Motrin] Allergy (Verified 11/28/24 13:24) Unknown Tobacco use date assessed: 11/28/24 Dental Screening Dental Screen Date: 05/01/24 HPI f/u labs via telemedicine HPI Details 64 y/o female presents to review labwork regarding muscle cramping. Had started her on meds for diabetes. She is on metformin 250mg daily. Labs drawn 11/12/24. Reviewed labs with pt. Ongoing elevated liver enzymes - AST 82, ALT 94. Fasting glucose 116. Pt reports ? viral illness with symptoms of a cough, sore throat, loss of appetite. HPI Comments History of Present Illness Details Documentation assistance for Manolo Bonilla MD, was provided by Abel Gómez,? Residential Leasing Agent on 11/28/2024 at 2:28 PM EST. I, Dr. Bonilla, have read, observed, and verified documentation. ?? [facility] Medical History Prediabetes Hypertriglyceridemia Elevated blood pressure reading Bilateral foot pain Incisional hernia Parastomal hernia Subcutaneous abscess Seborrheic dermatitis Migraines Fatty liver disease, nonalcoholic Sinusitis Ileostomy in place Dizziness Recurrent vomiting Gastroparesis Intra-abdominal abscess Intra-abdominal abscess Fever of unknown origin Leukocytosis Shock Perforated viscus COVID-19 vaccine series completed Environmental allergies PONV (postoperative nausea and vomiting) Thoracic disc herniation Herniated cervical disc Back pain Fibromyalgia Hx of migraines Crohn's disease Iron deficiency anemia Carpal tunnel syndrome Arthritis Vitamin D deficiency GERD (gastroesophageal reflux disease) Surgical History S/P colectomy Status post colostomy Hx of shoulder surgery History of surgery Hx of fusion of cervical spine Hx of cholecystectomy History of tonsillectomy History of esophagogastroduodenoscopy (EGD) History of tubal ligation Hx of colonoscopy Family History Paternal Grandmother High blood pressure High cholesterol Mother Throat cancer Alcoholism Alcohol abuse Maternal Grandmother Breast cancer Paternal Grandfather Prostate cancer Family/Other High blood pressure Father Alcohol abuse Daughter FH: mental illness Social History Household Members: Spouse and Family Household Members Other:: [place] Housing: House Are you a primary career coach to a significant other at home: No Do you presently have visiting nurse or other home services: No Unable to assess alcohol history related to: Unknown Alcohol intake: former Comment: restraints Patient Tobacco Use Status: Former Tobacco user Tobacco use type: Cigarette e-Cigarette/Vaping Use: Never Used Second Hand Smoke Exposure: No Advance Directives Date on File: 08/08/22 service: No Current occupational status: employed 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 Shamar Diaz, Janene Yates, Lavon Serna and colleagues, with an educational lo from [employer]. Review of Systems Const Denies chills, Denies fatigue, Denies fever(s), Denies headache(s) and Denies weakness ENT Denies dizziness and Denies headache(s) Card Denies dyspnea Resp Denies cough, Denies dyspnea, Denies wheezing and Denies other (shortness of breath) Musc Denies numbness and Denies tingling Neuro Denies dizziness, Denies headache(s), Denies numbness, Denies tingling and Denies weakness Psych Denies anxiety and Denies depression Endo Denies fatigue Aller/Immun Denies wheezing Physical exam (Primary Care) Tobacco/Smoking Status: Tobacco use Status Tobacco use date assessed 11/28/24 11/28/24 13:27 Patient Tobacco Use Status Former Tobacco user 11/28/24 13:27 Tobacco use type Cigarette 11/28/24 13:27 e-Cigarette/Vaping Use Never Used 11/28/24 13:27 Thrive Assessment: Date of Thrive Assessment Date Thrive assessed 10/27/24 11/28/24 13:27 Telehealth Telehealth Telehealth Platform: Telephone Location of provider rendering services: practice address Location of patient: address on file Patient Identification confirmed using: Name, : Yes Telehealth method: voice only Patient verbally consented to treatment: Yes Patient verbally consented to billing insurance company: Yes Patient informed of any privacy concerns related to visit: Yes Minutes spent on Phone/Video with Pt.: 7 Coding Level of Care Code Tele Est Pt Level 2 (50810) Diagnoses Diabetes E11.9 Muscle cramping R25.2 Elevated liver enzymes R74.8 Viral illness B34.9 Assessment & Plan Assessment & Plan (1) Diabetes: Code(s): E11.9 - Type 2 diabetes mellitus without complications Category: Medical Plan: Mild?diabetes?and?patient?started?metformin. She?initially?noted?rather?profuse?loose?stools?through?her?stoma. This?is?slowly?improving Encouraged?her?to?stick?with?it?as?this?usually?resolves?on?its?own. Will?recheck?A1c?at?her?next?visit (2) Muscle cramping: Code(s): R25.2 - Cramp and spasm Category: Medical Plan: Still?has?ongoing?muscle?cramping Lab?work?was?unrevealing Hydrate?well She?has?an?appointment?coming?up?with?her?neurologist?in?December?and?advised?her?to?discuss?this?with?them (3) Elevated liver enzymes: Code(s): R74.8 - Abnormal levels of other serum enzymes Category: Medical Plan: Ongoing?elevated?liver?enzymes.??Patient?has?a?history?of?fatty?liver?disorder. No?ultrasound?in?the?last?2?years Check?ultrasound (4) Viral illness: Code(s): B34.9 - Viral infection, unspecified Category: Medical Plan: Viral?illness Hydrate?well?and?rest-will give?her?a?note?for?work.??She?can?remain?out?of?work?through?the??of?November?and?may?return?on?Sunday?12/03/2024. Orders: Orders US abdomen woods w elastography Today R74.8 - Abnormal levels of other serum enzymes
== END 2024-11-28 14:46 | disposition home or self-care (01) ==
LOC: HO.HMCFM 13:29
PROVIDERS: PCP Family Medicine; Visit Provider Family Medicine
DX: E11.9 Type 2 diabetes mellitus without complications (principal); R25.2 Cramp and spasm; R74.8 Abnormal levels of other serum enzymes; B34.9 Viral infection, unspecified

== ENCOUNTER → 2024-11-28 13:29 | Outpatient (BNVA) | payer OTHER, SELFPAY | PROVIDERS: PCP Family Medicine; Visit Provider Family Medicine ==

== ENCOUNTER 2024-12-22 10:10 | Outpatient (REF) | payer OTHER, SELFPAY ==
--- OUTSIDE RECORDS SUMMARY | 2024-12-22 11:33 | XMS_ITS | Patient Health Record ---
Author Organization Shamar Do III, MD Address [address] [place] [address] [address] [place] [address] Care Team Providers Care Bead Worker Sewing Name Role Phone Manolo Bonilla Primary Care Provider Unavailab Shamar Munguia Unavailable [phone] Allergies Allergen (clinical drug ingredient) Drug/Non Drug [...] Problem Status W/U Status Risk Notes Problem 915715891 Thrombocytopenia (D69.6) Active confirmed Her platelet count has returned to normal and she has had no bleeding or clotting. Problem 242394835 Obesity (BMI 30-39.9) (E66.9) Active confirmed Her weight has been volatile. Her body mass index is now 32.7. We have discussed lifestyle modification diet and nutrition at length. Problem 58455471 Essential hypertension (I10) Active confirmed Her blood pressure is currently normal and no change in her regimen is necessary. The value is 122/82. I recommended weight loss and sodium restriction. Problem 16583461 Degenerative dis c disease, cervical (M50.30) Active confirmed Problem 234324679 History of cholecystectomy (Z90.49) Active confirmed Problem 09596432 Leukopenia, unspecified type (D72.819) Active confirmed The value is now in the normal range. She has had no recent infections. Problem 03327593 Normochromic normocytic anemia (D64.9) Active confirmed The hematocrit and mean cell volume are now normal. Problem 934904963 HPV (human papilloma virus) infection (B97.7) Active confirmed The HPV DN A was found to thousand 12, but not in 2015. I strongly recommended she continue routine and regular visits with JUNIOR BUSINESS ANALYST. Problem 415895021 H/O tubal ligati on (Z98.51) Active confirmed Vital Signs Heart Rate 80 /min 04/28/2024 Temperature 99.9 degrees Fahrenheit 04/28/2024 Blood pressure diastolic 91 mm Hg 04/28/2024 Height 62 in 04/28/2024 Blood pressure systolic 149 mm Hg 04/28/2024 Weight 195 lbs 04/28/2024 BMI 35.66 kg/m2 04/28/2024 Encounters Encounter Location Date Provider Diagnosis Shamar Do III, MD [address] [place] [address] [place] [address] 04/28/2024 Shamar Do Leukopenia, unspecif ied type [...] Order Date PROFILE, RANDOM (COMPREHENSIVE METABOLIC ) 04/24/2022 PROFILE, RANDOM (COMPREHENSIVE METABOLIC ) 03/18/2019 PROFILE, RANDOM (COMPREHENSIVE METABOLIC ) 03/12/2018 PROFILE, RANDOM (COMPREHENSIVE METABOLIC ) 09/20/2020 PROFILE, RANDOM (COMPREHENSIVE METABOLIC ) 09/23/2019 PROFILE, RANDOM (COMPREHENSIVE METABOLIC ) 09/05/2018 PROFILE, RANDOM (COMPREHENSIVE METABOLIC ) 10/22/2023 PROFILE, RANDOM (COMPREHENSIVE METABOLIC ) 03/21/2021 PROFILE, RANDOM (COMPREHENSIVE METABOLIC ) 03/23/2020 PROFILE, RANDOM (COMPREHENSIVE METABOLIC ) 04/28/2024 CBC w DIFF 03/23/2020 CBC w DIFF 04/28/2024 CBC w DIFF 04/24/2022 CBC w DIFF 03/18/2019 CBC w DIFF 03/12/2018 CBC w DIFF 04/30/2023 CBC w DIFF 09/20/2020 CBC w DIFF 09/23/2019 CBC w DIFF 09/05/2018 CBC w DIFF 03/21/2021 CBC with MANUAL DIFFERENTIAL 09/17/2018 CBC WITH AUTO DIFF 10/22/2023 Next Appt Details Provider Name:Shamar Do, 04/29/2025 09:30:00 AM, [address] [place] [address] [address], [place], [address], Insurance Providers Payer Name Payer Address Payer Phone Subscriber Number Group Number Insured Name Patient Relationship to Insured Coverage Start Date Coverage End Date [facility] [address] [place] [phone] [id number] Ju Hankins Self - patient is the [...] 1994 tonsillectomy 1979 Hospitalization History Reason Date(Month/Year) [facility] May 2017
--- OUTSIDE RECORDS SUMMARY | 2024-12-22 11:33 | XMS_ITS ---
Author Organization Shamar Do III, MD Address [address] [place] [address] [place] [address] Care Team Providers Care Product Support Analyst Name Role Phone Manolo Bonilla Primary Care Provider Unavailab Shamar Munguia Unavailable [phone] REASON FOR VISIT Follow up Social History Sex Assigned At : Social History Observation Description Sex Assigned At Female Encounters Encounter Location Date Provider Diagnosis Shamar Do III, MD [address] [place] [address] [place] [address] 04/21/2024 Shamar Do Plan Of Treatment Next Appt Details Provider Name:Shamar Do, 04/29/2025 09:30:00 AM, [address] [place] [address] [place], [address], Progress Notes * Ju HANKINS MDOB: (64 yo F)Acc No.[id number]:04/21/2024 Progress Notes Patient:?Ju HANKINS Provider:?Shamar Do MD :1960???Age:64 Y???Sex:Female D ate:04/21/2024 Address[address] [place] Pcp:Manolo Bonilla Subjective: * Chief Complaints: * [...] Do MD Date:?04/10 Generated for Jakob danielle/Juan/Latosha on:?12/22/2024 11:32 AM EDT
--- OUTSIDE RECORDS SUMMARY | 2024-12-22 11:33 | XMS_ITS ---
Author Organization Shamar Do III, MD Address [address] [place] [address] [address] [address] Care Team Providers Care Welder Assembler Name Role Phone Manolo Bonilla Primary Care Provider Unavailab Shamar Munguia Unavailable [phone] Allergies Allergen (clinical drug ingredient) Drug/Non Drug [...] Problem Status W/U Status Risk Notes Problem 305541052 Obesity (BMI 30-39.9) (E66.9) Active confirmed Her [...] Date Provider Diagnosis Shamar Do III, MD [address] [place] [address] [address] [place] [address] 10/22/2023 Shamar Do Leukopenia, unspecif ied type [...] the thrombocytopenia has resolved.Review of data at [facility] shows platelets or alternatively low or high. 10/22/2023 Normochromic normocytic anemia (ICD-10 - D64.9) The hematocrit is now normal with a normal mean cell volume in the anemia has resolved. 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 I strongly recommended she continue routine and regular visits with PITCH FLAKER. 10/22/2023 History of cholecystectomy (ICD-10 - Z90.49) [...] OV Provider Name:Shamar Do, 04/29/2025 09:30:00 AM, [address] [place] [address] [address], [place] [address], [place], [address], Progress Notes * Ju HANKINS MDOB: (63 yo F)Acc No.[id number]:10/22/2023 Progress Notes Patient:?Ju Hankins Farshad Provider:?Shamar Do MD :1960???Age:63 Y???Sex:Female D ate:10/22/2023 Address[address] [address], [facility] Pcp:Manolo Bonilla Subjective: * Chief Complaints: * [...] surgery olostomy 07/2022 * Hospitalization/Major Diagno stic Procedure:?[facility] colitis May 2017 * Family History:?Father: [...] Findings: Tobacco Non-User?Aggressive non-smoker ???She lives in [place], [place]. 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 She has been exposed to hydrocarbons. She was born in [place]. He has a long-term significant other named [...] the thrombocytopenia has resolved.Review of data at [facility] shows platelets or alternatively low or high.?3.?Normochromic normocytic anemia - D64.9, The hematocrit is now normal with a normal mean cell volume in the anemia has resolved.?4.?HPV (human papilloma virus) infection - B97.7, The HPV DNA was found to thousand 12, but not in 2015. I strongly recommended she continue routine and regular visits with PITCH FLAKER.?5.?History of cholecystectomy - Z90.49?6.?Obesity (BMI 30-39.9) - [...] Do MD Date:?10/11 Generated for Jakob danielle/Juan/Mioitting on:?12/22/2024 11:33 AM EDT History and Physical Notes * HPI (History [...]
--- OUTSIDE RECORDS SUMMARY | 2024-12-22 11:33 | XMS_ITS | Patient Health Record ---
Author Organization [facility] Address [address] [place] [address] Care Team Providers Care Rn Delivery Name Role Phone Deandre Younger MD Primary Care Provider UnavailRamu Rhodes Jr Unavailable MARIANO LANDIS Unavailable Unavailable Allergies Allergen (clinical [...] Problem Status W/U Status Risk Notes Problem 266989668 Gastro-esophagea l reflux disease without esophagitis (K21.9) Active confirmed Problem 217770304 Nausea (R11.0) Active confirmed Problem Gastroesophageal reflux disease (557929877) Gastroesophageal reflux disease (K21.9) Active confirmed Problem 75835832 Crohns disease o f both small and large intestine without complication (K50.80) Active confirmed Problem 548711633 Gastroesophageal reflux disease without esophagitis (K21.9) Active confirmed Problem 25792138 Colitis (K52.9) Active confirmed Problem 17226920 Diarrhea, unspecified type (R19.7) Active confirmed Problem 807897648 Irritable bowel syndrome with constipation (K58.1) Active confirmed Problem 49624973 Crohn's disease of colon without complication (K50.10) [...] Coverage End Date [employer] [place] [address] [address] [place] [address] [id number] Ju Pereyra Self - patient is the insured Medical (General) History Medical History History ICD Code esophageal reflux low vitamin D level arthritis carpal tunnel syndrome Denies [place],DM,CVA,Lung disease,renal dise ase iron deficiency anemia Crohn's colitis, last colonoscopy 2018, no active disease. Surgical History Surgery Date(Month/Year) neck surgery cholecystectomy tubal ligation several orthopedic surgeries
--- OUTSIDE RECORDS SUMMARY | 2024-12-22 11:33 | XMS_ITS ---
Author Organization Shamar Do III, MD Address [address] [place] [address] [address] [address] Care Team Providers Care Editorial Director Name Role Phone Manolo Bonilla Primary Care Provider Unavailab Shamar Munguia Unavailable [phone] Allergies Allergen (clinical drug ingredient) Drug/Non Drug [...] Date Provider Diagnosis Shamar Do III, MD [address] [place] [address] [address] [address] 04/28/2024 Shamar Do Leukopenia, unspecif ied type [...] labs Provider Name:Shamar Do, 04/29/2025 09:30:00 AM, [address] [place] [address] [address], [place], [address], Progress Notes * Ju HANKINS MDOB: (64 yo F)Acc No.[id number]:04/28/2024 Progress Notes Patient:?Ju Hankins Provider:?Shamar Do MD :1960???Age:64 Y???Sex:Female D ate:04/28/2024 Address:[address] [place] Pcp:Manolo Bonilla Subjective: * Chief Complaints: * [...] at annual visits. A CBC done at [facility] April 28, 2024 showed a [...] surgery 2Colostomy 07/2022 * Hospitalization/Major Diagno stic Procedure:?[facility] colitis May 2017 * Family [...] Findings: Tobacco Non-User?Aggressive non-smoker ???She lives in [place], [place]. 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 She has been exposed to hydrocarbons. She was born in [place]. He has a long-term significant other named [...] Provider:?Shamar Do MD Date:?04/10 Generated for Printi ng/Faharjinderg/eTransmitting on:?12/22/2024 11:32 AM EDT History and Physical Notes * HPI (History of Present Illness) Category Sub-Category Detail Notes COVID-19 Screening Questions Have you had any new onset fever, chills, cough, congestion, sore throat, shortness of breath, muscle aches?: No Have you been exposed to the virus withi n the last 10 days?: No Have you travelled internationally in [facility] last 10 days?: No Have you [...]
--- OUTSIDE RECORDS SUMMARY | 2024-12-22 11:33 | XMS_ITS | Clinical Summary ---
Author Organization 175 [facility] Address 175 [place] [address] Phone Care Team Providers Care Roving Changer Name Role Phone Manolo Bonilla MD Primary Care Provider Allergies Active Allergy Reactions Criticality Noted Date Comments Ibuprofen 06/20/2024 Omeprazole 06/20/2024 Tramadol 06/20/2024 Medications No known medications Active Problems Problem Noted Date Diagnosed Date PONV (postoperative nausea and vomiting) 024 Arthritis 06/20/2024 Bilateral foot pain 06/20/2024 Carpal tunnel syndrome 06/20/2024 Crohn disease ([facility] V24, [facility] V28) 024 Dizziness 06/20/2024 Elevated blood pressure reading 06/20/2024 Fatty liver disease, nonalcoholic 06/20/2024 Fever of unknown origin 06/20/2024 Fibromyalgia 06/20/2024 Gastroparesis 06/20/2024 Hypertriglyceridemia 06/20/[address] ([facility] V24, [facility] V28) Intra-abdominal abscess ([facility] V24, [facility] V2 8) 06/20/2024 Iron deficiency anemia 06/20/2024 Leukocytosis 06/20/2024 Migraines 06/20/2024 Pain in right foot 06/20/2024 Parastomal hernia 06/20/2024 Perforated viscus 06/20/2024 Prediabetes 06/20/2024 Recurrent vomiting 06/20/2024 Seborrheic dermatitis 06/20/2024 Shock ([facility] V24, [facility] V28) 06/20/2024 Sinusitis 06/20/2024 Subcutaneous abscess 06/20/2024 Encounters Date Type Department Care Team Description 11/03/2024 8:15 AM EST Office Visit Orthopedic Surgery [facility] 250 175 [facility] [address] [address] Matthew Hall DPM Follow-up exam (Primary Dx); Metatarsalgia of right foot; Neuritis from Last 3 Months Social History Tobacco [...] AM EDT Office Visit Orthopedic Surgery - [place] [address] [address] Matthew Hall DPM [address] [address] Health Maintenance Due Date Last Done Comments [...] , 10/26/2022, Additional history exists RSV Immunization Adult Patients Completed 05/29/2024, 10/18/2023 HIB Vaccines Aged Out [...] age to complete this topic Meningococcal B Vaccine Aged Out No l onger eligible based on patient's age to complete [...] R esult from Last 3 Months Insurance [facility] PLANS [place] [id number] Care Teams Roving Changer Relationship Specialty Start Date End Date Manolo Bonilla MD [address] [place] [address] Dr Lenoel [place] PCP - General 05/05/24
[2024-12-22 11:36] LABS: MANUAL DIFF FLAG NO
[2024-12-22 11:42] LABS: Basophils Percent Auto 0.5 % (0-2); Eosinophils Absolute Auto 0.1 X10*3/uL (0.0-0.4); Eosinophils Percent Auto 0.8 % (0-4); Hematocrit 43.9 % (37.0-47.0); Hemoglobin 15.3 g/dl (12.0-16.0); Imm Gran Abs Auto 0.02 X10*3/uL (0.00-0.03); Imm Gran Pct Auto 0.3 % (0.0-0.4); Lymphocytes Absolute Auto 2.6 X10*3/uL (1.2-4.9); Lymphocytes Percent Auto 35.9 % (20-40); Mean Corpuscular HGB Conc 34.9 g/dl (31.0-35.0); Mean Corpuscular Hemoglobin 32.6 pg (27.0-33.0); Mean Corpuscular Volume 93.4 fL (80.0-98.0); Mean Platelet Volume 10.3 fL (9.4-12.3); Monocytes Absolute Auto 0.6 X10*3/uL (0.1-1.2); Monocytes Percent Auto 7.7 % (2-11); Neutrophils Percent Auto 54.8 % (45-73); Platelet Count 239 X10*3/uL (160-400); White Blood Count 7.3 X10*3/uL (4.8-10.8)
[2024-12-22 11:47] LABS: Estimated Average Glucose 131 mg/dL; Hemoglobin A1c % 6.2 % (<6.0)
[2024-12-22 12:22] LABS: Erythrocyte Sedimentation Rate 34 MM/HR (0-20)
[2024-12-22 12:24] LABS: Alanine Aminotransferase 86 U/L (0-31); Albumin Level 4.2 g/dL (3.5-5.0); Anion Gap 13 (12-20); Aspartate Amino Transferase 65 U/L (5-31); Bilirubin Total 0.3 mg/dL (0.0-1.0); Blood Urea Nitrogen 21 mg/dL (9-16); C Reactive Protein 1.08 mg/dL (< or = 0.50); Calcium 9.7 mg/dL (8.4-10.2); Carbon Dioxide 28 mmol/L (22-29); Chloride 105 mmol/L (96-108); Estimated Glomerular Filt Rate 57; Glucose Random 89 mg/dL (60-115); Magnesium 2.2 mg/dL (1.6-2.6); Phosphorus 2.7 mg/dL (2.7-4.5); Potassium 4.2 mmol/L (3.3-5.1); Sodium 142 mmol/L (135-145); Total Protein 7.8 g/dL (6.5-8.0)
[2024-12-22 12:31] LABS: Alkaline Phosphatase 170 U/L (39-117)
[2024-12-25 21:28] LABS: Aldolase 9.4 U/L (<=8.1)
== END 2024-12-22 10:11 | disposition home or self-care (01) ==
LOC: HO.WFDLDS 10:10
PROVIDERS: Registered Nurse; Visit Provider Family Medicine
DX: R73.01 Impaired fasting glucose (principal); R25.2 Cramp and spasm
CPT/HCPCS: 36415; 80053; 82085; 82550; 83036; 83735; 84100; 85025; 85652; 86140

== ENCOUNTER 2025-01-05 08:31 | Outpatient (REF) | payer OTHER, SELFPAY ==
--- NOTE | ~2025-01-05 | US_ITS ---
EXAMINATION: US ABDOMEN LIMITED WITH LIVER ELASTOGRAPHY HISTORY: R74.8 - Abnormal levels of other serum enzymes TECHNIQUE: Real-time grayscale ultrasound imaging of the right upper quadrant was performed and images were reviewed. COMPARISON: Correlation is made with a CT of the abdomen without contrast dated 12/31/2023. FINDINGS: Liver: The right lobe of the liver measures 15.8 cm in size. The left lobe of the liver measures 14.2 cm in size. The liver demonstrates increased echotexture, consistent with steatosis. No focal mass or intrahepatic biliary ductal dilatation is identified. There is normal hepatopedal flow in the portal vein. Ultrasound elastography of the liver was performed with 10 separate measurements of the liver parenchyma with the patient in the supine position. Measurements were obtained approximately 2 cm below Nima's capsule and perpendicular to the capsule. Images are of satisfactory quality. The median shear wave velocity is 1.12 m/s. The interquartile range/median (IQR/median) is 0.17. Gallbladder and biliary tree: The gallbladder is surgically absent. The common bile duct measures 9 mm in diameter. Right Kidney: The right kidney measures 10.6 cm in length. The right kidney is unremarkable, without evidence of masses, hydronephrosis, or calculi. Pancreas: The pancreatic head, neck, and body are unremarkable. The pancreatic tail is obscured by bowel gas. Abdominal aorta and inferior vena cava: The visualized portions of the abdominal aorta and inferior vena cava are normal in caliber. There is no free fluid in the right upper quadrant. US/US abdomen woods w elastography IMPRESSION: Hepatomegaly and hepatic steatosis. The median shear wave velocity in the liver is 1.12 m/s, corresponding to a median liver stiffness of 3.8 kPa. The IQR/median value is 0.17. This is indicative of a quality data set. Findings are indicative of a normal elastography value with a low likelihood of severe fibrosis or cirrhosis. REFERENCE: Society of Radiologists in Ultrasound Liver Stiffness Thresholds (2020): LIVER STIFFNESS THRESHOLDS: *Shear wave velocity less than 1.3 m/s (Liver Stiffness equal or less than 5 kPa): High probability of being normal. *Shear wave velocity less than 1.7 m/s (Liver Stiffness less than 9 kPa): In the absence of other known clinical signs, rules out compensated advanced chronic liver disease. *Shear wave velocity between 1.7-2.1 m/s (Liver Stiffness 9-13 kPa): Suggestive of compensated advanced chronic liver disease but need further test for confirmation. *Shear wave velocity between 2.1-2.4 m/s (Liver Stiffness 13-17 kPa): Rules in compensated advanced chronic liver disease. *Shear wave velocity greater than 2.4 m/s (Liver Stiffness over 17 kPa): Suggestive of clinically significant portal hypertension. QUALITY OF DATA SET: *IQR/Median value equal or less than 0.15 implies a quality data set. *IQR/Median value over 0.15 implies a poor quality data set. SIGNIFICANT CHANGE FROM PRIOR EXAM: Significant change if liver stiffness measurement is 10% or greater from prior exam. OTHER CONSIDERATIONS: The stage of liver fibrosis may be overestimated in the setting of acute hepatitis, liver inflammation, elevated liver function tests, hepatic vascular congestion, obstructive cholestasis, non-fasting state, and infiltrative diseases such as amyloidosis and lymphoma. In some patients with NAFLD, the liver stiffness thresholds for compensated advanced chronic liver disease may be lower. In causes other than viral hepatitis and NAFLD, liver stiffness thresholds are not well established. Electronically signed by: Shamar Roa MD 01/07/2025 10:05 AM EDT
--- OUTSIDE RECORDS SUMMARY | 2025-01-05 08:56 | XMS_ITS | Clinical Summary ---
Author Organization 175 [facility] Address 175 [place] [address] Phone Care Team Providers Care Web Applications Administrator Name Role Phone Manolo Bonilla MD Primary Care Provider Allergies Active Allergy Reactions Criticality Noted Date Comments Ibuprofen 06/20/2024 Omeprazole 06/20/2024 Tramadol 06/20/2024 Medications No known medications Active Problems Problem Noted Date Diagnosed Date PONV (postoperative nausea and vomiting) 024 Arthritis 06/20/2024 Bilateral foot pain 06/20/2024 Carpal tunnel syndrome 06/20/2024 Crohn disease ([facility] V24, [facility] V28) 024 Dizziness 06/20/2024 Elevated blood pressure reading 06/20/2024 Fatty liver disease, nonalcoholic 06/20/2024 Fever of unknown origin 06/20/2024 Fibromyalgia 06/20/2024 Gastroparesis 06/20/2024 Hypertriglyceridemia 06/20/[address] ([facility] V24, [facility] V28) Intra-abdominal abscess ([facility] V24, [facility] V2 8) 06/20/2024 Iron deficiency anemia 06/20/2024 Leukocytosis 06/20/2024 Migraines 06/20/2024 Pain in right foot 06/20/2024 Parastomal hernia 06/20/2024 Perforated viscus 06/20/2024 Prediabetes 06/20/2024 Recurrent vomiting 06/20/2024 Seborrheic dermatitis 06/20/2024 Shock ([facility] V24, [facility] V28) 06/20/2024 Sinusitis 06/20/2024 Subcutaneous abscess 06/20/2024 Encounters Date Type Department Care Team Description 11/03/2024 8:15 AM EST Office Visit Orthopedic Surgery [facility] 250 175 [facility] [address] [address] Matthew Hall DPM Follow-up exam (Primary Dx); [...] AM EDT Office Visit Orthopedic Surgery - [place] [address] [address] Matthew Hall DPM [address] [address] Health Maintenance Due Date Last Done Comments [...] R esult from Last 3 Months Insurance [facility] PLANS [place] [id number] Care Teams Web Applications Administrator Relationship Specialty Start Date End Date Manolo Bonilla MD [address] [place] [address] Dr Leonel [place] PCP - General 05/05/24
== END 2025-01-05 08:32 | disposition home or self-care (01) ==
LOC: HO.US 08:31
PROVIDERS: PCP Family Medicine; Visit Provider Family Medicine
DX: R74.8 Abnormal levels of other serum enzymes (principal)
CPT/HCPCS: 76705; 76981

== ENCOUNTER → 2025-01-05 08:33 | Outpatient (BNV) | payer OTHER, SELFPAY | PROVIDERS: PCP Family Medicine; Visit Provider Radiology Diagnostic Radiology | DX: K76.0 Fatty (change of) liver, not elsewhere classified (principal); R16.0 Hepatomegaly, not elsewhere classified | CPT/HCPCS: 76705; 76981 ==

== ENCOUNTER 2025-01-08 12:36 | Outpatient (AMB) | payer OTHER, SELFPAY ==
[2025-01-08 13:13] VITALS: BMI 33.4
--- NOTE | 2025-01-08 13:13 | MHC.AMNUTRGE ---
VS Expanded 01/08/25 13:13 Height 5 ft 4 in Weight 194 lb 14.218 oz BMI 33.4 Intake Visit Reasons: Pre-DM Allergies omeprazole [OMEPRAZOLE] Allergy (Severe, Verified 11/28/24 13:24) N/V tramadol [From Ultram] Allergy (Intermediate, Verified 11/28/24 13:24) ITCHING ibuprofen [From Motrin] Allergy (Verified 11/28/24 13:24) Unknown Nutrition Presentation Details: Pt presents for MNT f/u for T2DM Pt reports working on including lean protein foods has caution with fiber due to ostomy since Jul 2023 no alcohol/no smoking BS Monitoring Most Recent Diabetes Results: Creatinine 0.99 mg/dL (0.5-1.4) 12/22/24 Blood Urea Nitrogen 21 mg/dL (9-16) H 12/22/24 Sodium 142 mmol/L (135-145) 12/22/24 Potassium 4.2 mmol/L (3.3-5.1) 12/22/24 Chloride 105 mmol/L (96-108) 12/22/24 Carbon Dioxide 28 mmol/L (22-29) 12/22/24 Calcium 9.7 mg/dL (8.4-10.2) 12/22/24 AST 65 U/L (5-31) H 12/22/24 ALT 86 U/L (0-31) H 12/22/24 Total Protein 7.8 g/dL (6.5-8.0) 12/22/24 Albumin 4.2 g/dL (3.5-5.0) 12/22/24 [facility] Medical History Prediabetes Hypertriglyceridemia Elevated blood pressure reading Bilateral foot pain Incisional hernia Parastomal hernia Subcutaneous abscess Seborrheic dermatitis Migraines Fatty liver disease, nonalcoholic Sinusitis Ileostomy in place Dizziness Recurrent vomiting Gastroparesis Intra-abdominal abscess Intra-abdominal abscess Fever of unknown origin Leukocytosis Shock Perforated viscus COVID-19 vaccine series completed Environmental allergies PONV (postoperative nausea and vomiting) Thoracic disc herniation Herniated cervical disc Back pain Fibromyalgia Hx of migraines Crohn's disease Iron deficiency anemia Carpal tunnel syndrome Arthritis Vitamin D deficiency GERD (gastroesophageal reflux disease) Surgical History S/P colectomy Status post colostomy Hx of shoulder surgery History of surgery Hx of fusion of cervical spine Hx of cholecystectomy History of tonsillectomy History of esophagogastroduodenoscopy (EGD) History of tubal ligation Hx of colonoscopy Family History Paternal Grandmother High blood pressure High cholesterol Mother Throat cancer Alcoholism Alcohol abuse Maternal Grandmother Breast cancer Paternal Grandfather Prostate cancer Family/Other High blood pressure Father Alcohol abuse Daughter FH: mental illness Social History Household Members: Spouse and Family Household Members Other:: [place] Housing: House Are you a primary career technical counselor to a significant other at home: No Do you presently have visiting nurse or other home services: No Unable to assess alcohol history related to: Unknown Alcohol intake: former Comment: restraints Patient Tobacco Use Status: Former Tobacco user Tobacco use type: Cigarette e-Cigarette/Vaping Use: Never Used Second Hand Smoke Exposure: No Advance Directives Date on File: 08/08/22 service: No Current occupational status: employed 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 @ [employer] Cognitive needs: No Hearing needs: No Vision needs: No Assessment & Plan Assessment & Plan (1) Prediabetes: Comment: with hypertriglyceridemia Code(s): R73.03 - Prediabetes Category: Medical Plan: Wt: 88 Kg ( 06/03 ), 90kg (12/02), 89 kg (01/31) Est kcal needs as per MSJ: 1700 (40% carb, 30% protein/fat) Est fluid needs as per 25-30 ml/d: 2600 Est prot per day as per 1 g/kg bw: 88 Recommend fiber intake : 8-10 g per day and gradually increase to 25-28 g per day for women and 35-38 g for men or as tolerated Recommend sodium intake per day : less than 2300 mg Educated patient on: ( R = reviewed V = verbalizes understanding N/R = needs review N/A = not applicable Food sources of carbohydrate, adequate serving sizes and its role in various health conditions: R Differences between complex carbohydrates a simple carbohydrates, role of fiber in diet: R V N/R Lean protein sources of foods: R Differences between types of fats and role in diet (mono on saturated fat fatty acids, saturated fatty acids, trans fats): R Food sources of sodium in salt and healthy modifications for heart health in kidney health: R V R/V Vitamins and minerals: R V N/R Healthy plate method concept: R V N/R Physical activity: Benefits a precaution: R V N/R Dietary prevention of Hyperglycemia: R Patient Instructions: Continue working on reducing empty calorie foods (pastries/cookies) Choose cooked fruit instead and enhance flavor by adding cinnamon/extracts Coding Level of Care Code Nutr Indiv Subseq (16521) Diagnoses Prediabetes R73.03 Time Spent (min) 30
== END 2025-01-08 13:38 | disposition home or self-care (01) ==
LOC: HO.ENCR 12:36
PROVIDERS: PCP Family Medicine; Visit Provider Dietitian, Registered
DX: R73.03 Prediabetes (principal)

== ENCOUNTER → 2025-01-08 12:36 | Outpatient (BNVA) | payer OTHER, SELFPAY | PROVIDERS: PCP Family Medicine; Visit Provider Dietitian, Registered | DX: R73.03 Prediabetes (principal) | CPT/HCPCS: 97803 ==

== ENCOUNTER 2025-01-19 08:32 | Outpatient (AMB) | payer OTHER, SELFPAY ==
--- NOTE | 2025-01-19 08:36 | MHC.OFFVIS ---
Vital Signs 01/19/25 08:42 Height 5 ft 4 in Weight 194 lb BMI 33.3 BP 172/70 H Blood Pressure Location Rt brachial Position Sitting Pulse 97 Intake Visit Reasons: 3 month follow up Intake Note: Patient here for 3m follow up Incisional hernia. Saw Amber Rivero rodding machine tender on 01-08-2025. On Mounjaro. Patient c/o: reports feeling well. Last A1C 6.2 (12-22-2024). Last office visit 10-13-2024 [id number] Supervisor Remelt Required: No Accompanied by: Grand Child Allergies omeprazole [OMEPRAZOLE] Allergy (Severe, Verified 01/19/25 08:44) N/V tramadol [From Ultram] Allergy (Intermediate, Verified 01/19/25 08:44) ITCHING ibuprofen [From Motrin] Allergy (Verified 01/19/25 08:44) Unknown Medication List - Last Reconciled 01/19/25 by Deandre Hagan MD blood pressure monitor Automatic, Digital. Dx: I10. Daily As directed, 999 days/lifetime duloxetine mg PO fremanezumab-vfrm (Ajovy Syringe) 225 mg subcut Q30D loratadine (Claritin) 10 mg PO DAILY magnesium oxide 800 mg PO BID methocarbamol 750 mg PO TID qlwrtaqy-wqe-welk-FA-vit K-lut 8 mg iron-400 mcg-50 mcg (Centrum Silver Women) 1 tab PO DAILY ondansetron 1 tab PO DAILY PRN pantoprazole 40 mg PO DAILY rizatriptan 1 tab PO DAILY PRN tirzepatide (Mounjaro) 2.5 mg subcut QWEEK HPI HPI 3 month follow up: Details: She is here for follow-up for an incisional hernia. She had developed this after multiple laparotomies for perforated stercoral ulcers in the colon as well as for toxic megacolon. She says she has just been started on Mounjaro. She continues to do well with regards to her ileostomy. She does state that her weight has been fluctuating. She denies any problems were stoma. [facility] Medical History Prediabetes Hypertriglyceridemia Elevated blood pressure reading Bilateral foot pain Incisional hernia Parastomal hernia Subcutaneous abscess Seborrheic dermatitis Migraines Fatty liver disease, nonalcoholic Sinusitis Ileostomy in place Dizziness Recurrent vomiting Gastroparesis Intra-abdominal abscess Intra-abdominal abscess Fever of unknown origin Leukocytosis Shock Perforated viscus COVID-19 vaccine series completed Environmental allergies PONV (postoperative nausea and vomiting) Thoracic disc herniation Herniated cervical disc Back pain Fibromyalgia Hx of migraines Crohn's disease Iron deficiency anemia Carpal tunnel syndrome Arthritis Vitamin D deficiency GERD (gastroesophageal reflux disease) Surgical History S/P colectomy Status post colostomy Hx of shoulder surgery History of surgery Hx of fusion of cervical spine Hx of cholecystectomy History of tonsillectomy History of esophagogastroduodenoscopy (EGD) History of tubal ligation Hx of colonoscopy Family History Paternal Grandmother High blood pressure High cholesterol Mother Throat cancer Alcoholism Alcohol abuse Maternal Grandmother Breast cancer Paternal Grandfather Prostate cancer Family/Other High blood pressure Father Alcohol abuse Daughter FH: mental illness Social History Household Members: Spouse and Family Household Members Other:: [place] Housing: House Are you a primary lead care manager to a significant other at home: No Do you presently have visiting nurse or other home services: No Unable to assess alcohol history related to: Unknown Alcohol intake: former Comment: restraints Patient Tobacco Use Status: Former Tobacco user Tobacco use type: Cigarette e-Cigarette/Vaping Use: Never Used Second Hand Smoke Exposure: No Advance Directives Date on File: 08/08/22 service: No Current occupational status: employed 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 @ [employer] Cognitive needs: No Hearing needs: No Vision needs: No Review of Systems Const Denies chills and Denies fever(s) Card Denies chest pain, Denies dyspnea and Reports dyspnea on exertion Resp Denies cough, Denies dyspnea and Reports dyspnea on exertion GI Denies hematochezia and Denies change in bowel habits Denies hematuria Musc Denies back pain and Denies limited range of motion Neuro Denies focal weakness and Denies convulsions Psych Denies depression and Denies mood swings Physical Exam Vital Signs: Last Vital Signs Pulse 97 01/19/25 08:42 BP 172/70 H 01/19/25 08:42 BMI result Body Mass Index 33.3 Const Other: Morbidly obese General: comfortable and no acute distress Resp Effort & Inspection: normal respiratory effort Cardio Rate: regular rate GI Other: Obese, note of reducible large hernia on the upper abdomen near the midline, nontender Palpation (GI): Soft to palpation and not firm Assessment & Plan Assessment & Plan (1) Incisional hernia: Code(s): K43.2 - Incisional hernia without obstruction or gangrene Category: Medical Plan: She has an incisional hernia as described above. She is morbidly obese so it is difficult to define the hernia defect She is trying to lose more weight as she is considering having repair of the hernia down the line. She says she was just started on Mounjaro and she is hoping that she will eventually lose enough weight and have the surgery down the line She is doing well overall. Her ileostomy is functioning well. I will see her again in the office in about 3 months to see how she is doing Coding Level of Care Code Est Pt Level 3 (39527) Diagnoses Incisional hernia K43.2
--- OUTSIDE RECORDS SUMMARY | 2025-01-19 08:37 | XMS_ITS ---
Author Organization Shamar Do III, MD Address [address] [place] [address] [address] [address] Care Team Providers Care Assistant Store Manager Sales Name Role Phone Manolo Bonilla Primary Care Provider Unavailab Shamar Munguia Unavailable [phone] Allergies Allergen (clinical drug ingredient) Drug/Non Drug [...] Problem Status W/U Status Risk Notes Problem [id number] Obesity (BMI 30-39.9) (E66.9) Active confirmed Her [...] Date Provider Diagnosis Shamar Do III, MD [address] [place] [address] [facility] [place] [address] 10/22/2023 Shamar Do Leukopenia, unspecif ied type [...] the thrombocytopenia has resolved.Review of data at [facility] shows platelets or alternatively low or high. 10/22/2023 Normochromic normocytic anemia (ICD-10 - D64.9) The hematocrit is now normal with a normal mean cell volume in the anemia has resolved. 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 I strongly recommended she continue routine and regular visits with [facility] DISPATCHER. 10/22/2023 History of cholecystectomy (ICD-10 - Z90.49) [...] OV Provider Name:Shamar Do, 04/29/2025 09:30:00 AM, [address] [place] [address] DR, [place] [address], [place], [address], Progress Notes * Ju HANKINS MDOB: (63 yo F)Acc No.[id number]:10/22/2023 Progress Notes Patient:?Ju Hankins Farshad Provider:?Shamar oD MD :1960???Age:63 Y???Sex:Female D ate:10/22/2023 Address[address] [address], [facility] Pcp:Manolo Bonilla Subjective: * Chief Complaints: * [...] surgery olostomy 07/2022 * Hospitalization/Major Diagno stic Procedure:?[facility] colitis May 2017 * Family History:?Father: [...] Findings: Tobacco Non-User?Aggressive non-smoker ???She lives in [place], [place]. 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 She has been exposed to hydrocarbons. She was born in [place]. He has a long-term significant other named [...] the thrombocytopenia has resolved.Review of data at [facility] shows platelets or alternatively low or high.?3.?Normochromic normocytic anemia - D64.9, The hematocrit is now normal with a normal mean cell volume in the anemia has resolved.?4.?HPV (human papilloma virus) infection - B97.7, The HPV DNA was found to thousand 12, but not in 2015. I strongly recommended she continue routine and regular visits with TAXICAB DISPATCHER.?5.?History of cholecystectomy - Z90.49?6.?Obesity (BMI 30-39.9) - [...] Do MD Date:?10/11 Generated for Jakob danielle/Juan/Latosha on:?01/19/2025 08:37 AM EDT History and Physical Notes * [...]
--- OUTSIDE RECORDS SUMMARY | 2025-01-19 08:37 | XMS_ITS | Patient Health Record ---
Author Organization [facility] Address [address] [place] [address] Care Team Providers Care Lawn Mower Repairer Name Role Phone Deandre Younger MD Primary [...] Problem Status W/U Status Risk Notes Problem [id number] Gastro-esophagea l reflux disease without esophagitis (K21.9) Active confirmed Problem 582909575 Nausea (R11.0) Active confirmed Problem Gastroesophageal reflux disease (K21.9) Active confirmed Problem 88307293 Crohns disease o f both small and large intestine without complication (K50.80) Active confirmed Problem 798128490 Gastroesophageal reflux disease without esophagitis (K21.9) Active confirmed Problem 62306189 Colitis (K52.9) Active confirmed Problem 36118352 Diarrhea, unspecified type (R19.7) Active confirmed Problem 247890509 Irritable bowel syndrome with constipation (K58.1) Active confirmed Problem 22239712 Crohn's disease of colon without complication (K50.10) [...] [employer] [place] [address] [address] [place] [address] [id number] Ju Pereyra Self - patient is the insured Medical (General) History Medical History History ICD Code esophageal reflux low vitamin D level arthritis carpal tunnel syndrome Denies AK,DM,CVA,Lung disease,renal dise ase iron deficiency anemia Crohn's colitis, last colonoscopy 2018, no active disease. Surgical History Surgery Date(Month/Year) neck surgery cholecystectomy tubal ligation several orthopedic surgeries
--- OUTSIDE RECORDS SUMMARY | 2025-01-19 08:37 | XMS_ITS ---
Author Organization Shamar Do III, MD Address [address] [place] [address] [place] [address] Care Team Providers Care Ship Laborer Name Role Phone Manolo Bonilla Primary Care Provider Unavailab Shamar Munguia Unavailable [phone] REASON FOR VISIT Follow up Social History Sex Assigned At : Social History Observation Description Sex Assigned At Female Encounters Encounter Location Date Provider Diagnosis Shamar Do III, MD [address] [place] [address] [place] [address] 04/21/2024 Shamar Do Plan Of Treatment Next Appt Details Provider Name:Shamar Do, 04/29/2025 09:30:00 AM, [address] [place] [address] [place], [address], Progress Notes * Ju HANKINS MDOB: (65 yo F)Acc No.[id number]:04/21/2024 Progress Notes Patient:?Ju HANKINS Provider:?Shamar Do MD :1960???Age:64 Y???Sex:Female D ate:04/21/2024 Address:[address] [id number] Pcp:Manolo Bonilla Subjective: * Chief Complaints: * [...] Do MD Date:?04/10 Generated for Jakob danielle/Juan/Latosha on:?01/19/2025 08:36 AM EDT
--- OUTSIDE RECORDS SUMMARY | 2025-01-19 08:37 | XMS_ITS ---
Author Organization Shamar Do III, MD Address [address] [place] [address] [address] [address] Care Team Providers Care Eap Specialist Name Role Phone Manolo Bonilla Primary Care Provider Unavailab Shamar Munguia Unavailable [phone] Allergies Allergen (clinical drug ingredient) Drug/Non Drug [...] Date Provider Diagnosis Shamar Do III, MD [address] [place] [address] [address] [address] 04/28/2024 Shamar Do Leukopenia, unspecif ied type [...] labs Provider Name:Shamar Do, 04/29/2025 09:30:00 AM, [address] [place] [address] [address], [place], [address], Progress Notes * Ju HANKINS MDOB: (64 yo F)Acc No.[id number]:04/28/2024 Progress Notes Patient:?Ju Hankins Provider:?Shamar Do MD :1960???Age:64 Y???Sex:Female D ate:04/28/2024 Address:[address] [id number] Pcp:Manolo Bonilla Subjective: * Chief Complaints: * [...] at annual visits. A CBC done at [facility] April 28, 2024 showed a white count [...] surgery 2Colostomy 07/2022 * Hospitalization/Major Diagno stic Procedure:?[facility] colitis May 2017 * Family History:?Father: sugey [...] Findings: Tobacco Non-User?Aggressive non-smoker ???She lives in [place], [place]. 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 She has been exposed to hydrocarbons. She was born in [place]. He has a long-term significant other named [...] Do MD Date:?04/10 Generated for Printi ng/Faharjinderg/eTransmitting on:?01/19/2025 08:37 AM EDT History and Physical Notes * HPI (History of Present Illness) Category Sub-Category Detail Notes COVID-19 Screening Questions Have you had any new onset fever, chills, cough, congestion, sore throat, shortness of breath, muscle aches?: No Have you been exposed to the virus withi n the last 10 days?: No Have you travelled internationally in [facility] last 10 days?: No Have you [...]
--- OUTSIDE RECORDS SUMMARY | 2025-01-19 08:37 | XMS_ITS | Patient Health Record ---
Author Organization Shamar Do III, MD Address [address] [place] [address] [address] [place] [address] Care Team Providers Care Store Gift Wrap Associate Name Role Phone Manolo Bonilla Primary Care Provider Unavailab Shamar Munguia Unavailable [phone] Allergies Allergen (clinical drug ingredient) Drug/Non Drug [...] Problem Status W/U Status Risk Notes Problem 997943452 Thrombocytopenia (D69.6) Active confirmed Her platelet count has returned to normal and she has had no bleeding or clotting. Problem 690052246 Obesity (BMI 30-39.9) (E66.9) Active confirmed Her weight has been volatile. Her body mass index is now 32.7. We have discussed lifestyle modification diet and nutrition at length. Problem 87409370 Essential hypertension (I10) Active confirmed Her blood pressure is currently normal and no change in her regimen is necessary. The value is 122/82. I recommended weight loss and sodium restriction. Problem 95541794 Degenerative dis c disease, cervical (M50.30) Active confirmed Problem 942531836 History of cholecystectomy (Z90.49) Active confirmed Problem 09646401 Leukopenia, unspecified type (D72.819) Active confirmed The value is now in the normal range. She has had no recent infections. Problem 80580830 Normochromic normocytic anemia (D64.9) Active confirmed The hematocrit and mean cell volume are now normal. Problem 641240587 HPV (human papilloma virus) infection (B97.7) Active confirmed The HPV DN A was found to thousand 12, but not in 2015. I strongly recommended she continue routine and regular visits with SANDER SETTER. Problem 566561190 H/O tubal ligati on (Z98.51) Active confirmed Vital Signs Heart Rate 80 /min 04/28/2024 Temperature 99.9 degrees Fahrenheit 04/28/2024 Blood pressure diastolic 91 mm Hg 04/28/2024 Height 62 in 04/28/2024 Blood pressure systolic 149 mm Hg 04/28/2024 Weight 195 lbs 04/28/2024 BMI 35.66 kg/m2 04/28/2024 Encounters Encounter Location Date Provider Diagnosis Shamar Do III, MD [address] [place] [address] [place] [address] 04/28/2024 Shamar Do Leukopenia, unspecif ied type [...] 10/22/2023 PROFILE, RANDOM (COMPREHENSIVE METABOLIC ) 03/21/2021 CBC [...] Details Provider Name:Shamar Do, 04/29/2025 09:30:00 AM, [address] [place] [address] [address], [place], [address], Insurance Providers Payer Name Payer Address Payer Phone Subscriber Number Group Number Insured Name Patient Relationship to Insured Coverage Start Date Coverage End Date [facility] [address] [place] [phone] [id number] Ju Hankins Self - patient is the [...] 1994 tonsillectomy 1979 Hospitalization History Reason Date(Month/Year) [facility] May 2017
--- OUTSIDE RECORDS SUMMARY | 2025-01-19 08:37 | XMS_ITS | Clinical Summary ---
Author Organization [address] [facility] Address [address] [place] [address] Phone Care Team Providers Care Cupola Liner Helper Name Role Phone Manolo Bonilla MD Primary Care Provider [phone] Allergies Active Allergy Reactions Criticality Noted Date Comments Ibuprofen 06/20/2024 Omeprazole 06/20/2024 Tramadol 06/20/2024 Medications No known medications Active Problems Problem Noted Date Diagnosed Date PONV (postoperative nausea and vomiting) 024 Arthritis 06/20/2024 Bilateral foot pain 06/20/2024 Carpal tunnel syndrome 06/20/2024 Crohn disease ([facility] V24, [facility] V28) 024 Dizziness 06/20/2024 Elevated blood pressure reading 06/20/2024 Fatty liver disease, nonalcoholic 06/20/2024 Fever of unknown origin 06/20/2024 Fibromyalgia 06/20/2024 Gastroparesis 06/20/2024 Hypertriglyceridemia 06/20/[address] ([facility] V24, [facility] V28) Intra-abdominal abscess ([facility] V24, [facility] V2 8) 06/20/2024 Iron deficiency anemia 06/20/2024 Leukocytosis 06/20/2024 Migraines 06/20/2024 Pain in right foot 06/20/2024 Parastomal hernia 06/20/2024 Perforated viscus 06/20/2024 Prediabetes 06/20/2024 Recurrent vomiting 06/20/2024 Seborrheic dermatitis 06/20/2024 Shock ([facility] V24, [facility] V28) 06/20/2024 Sinusitis 06/20/2024 Subcutaneous abscess 06/20/2024 Encounters Date Type Department Care Team Description 11/03/2024 8:15 AM EST Office Visit Orthopedic Surgery [facility] [address] [facility] [address] [address] Matthew Hall DPM Follow-up exam (Primary Dx); [...] AM EDT Office Visit Orthopedic Surgery - [place] [address] [address] Matthew Hall DPM [address] [address] Health Maintenance Due Date Last Done Comments [...] esult from Last 3 Months Insurance [facility] [place] [id number] Care Teams Cupola Liner Helper Relationship Specialty Start Date End Date Manolo Bonilla MD [address] [place] [address] Dr [place] PCP - General 05/05/24
[2025-01-19 08:42] VITALS: BP 172/70; PULSE 97; BMI 33.3
== END 2025-01-19 08:55 | disposition home or self-care (01) ==
LOC: HO.HGS 08:33
PROVIDERS: PCP Family Medicine; Visit Provider Surgery
DX: K43.2 Incisional hernia without obstruction or gangrene (principal)
CPT/HCPCS: 99213

== ENCOUNTER → 2025-01-19 08:32 | Outpatient (BNVA) | payer OTHER, SELFPAY | PROVIDERS: PCP Family Medicine; Visit Provider Surgery | DX: K43.2 Incisional hernia without obstruction or gangrene (principal) | CPT/HCPCS: 99212 ==

== ENCOUNTER 2025-02-04 10:29 | Outpatient (AMB) | payer OTHER, SELFPAY ==
--- NOTE | 2025-02-04 10:28 | A.OFFPC_ITS ---
Intake Visit Reasons: f/u liver enzymes, labs Allergies omeprazole [OMEPRAZOLE] Allergy (Severe, Verified 01/19/25 08:44) N/V tramadol [From Ultram] Allergy (Intermediate, Verified 01/19/25 08:44) ITCHING ibuprofen [From Motrin] Allergy (Verified 01/19/25 08:44) Unknown Tobacco use date assessed: 11/28/24 Dental Screening Dental Screen Date: 05/01/24 HPI f/u liver enzymes, labs HPI Details 65 y/o female presents to f/u liver enzy mes, labs. Labs drawn 12/22/24. Reviewed labs with pt. A1c 6.2%, improved from prior. She is on mounjaro. AST 65, ALT 86. Alk phosphatase 170 U/L. Total Creatinine kinase 163 U/L. Pt notes more gas lately. Likely secondary to mounjaro. Reports recurrent hives. HPI Comments History of Present Illness Details Documentation assistance for Manolo Bonilla MD, was provided by Abel Gómez,? South Asian History Professor on 02/04/2025 at 2:15 PM EST. I, Dr. Bonilla, have read, observed, and verified documentation. ?? [facility] Medical History Prediabetes Hypertriglyceridemia Elevated blood pressure reading Bilateral foot pain Incisional hernia Parastomal hernia Subcutaneous abscess Seborrheic dermatitis Migraines Fatty liver disease, nonalcoholic Sinusitis Ileostomy in place Dizziness Recurrent vomiting Gastroparesis Intra-abdominal abscess Intra-abdominal abscess Fever of unknown origin Leukocytosis Shock Perforated viscus COVID-19 vaccine series completed Environmental allergies PONV (postoperative nausea and vomiting) Thoracic disc herniation Herniated cervical disc Back pain Fibromyalgia Hx of migraines Crohn's disease Iron deficiency anemia Carpal tunnel syndrome Arthritis Vitamin D deficiency GERD (gastroesophageal reflux disease) Surgical History S/P colectomy Status post colostomy Hx of shoulder surgery History of surgery Hx of fusion of cervical spine Hx of cholecystectomy History of tonsillectomy History of esophagogastroduodenoscopy (EGD) History of tubal ligation Hx of colonoscopy Family History Paternal Grandmother High blood pressure High cholesterol Mother Throat cancer Alcoholism Alcohol abuse Maternal Grandmother Breast cancer Paternal Grandfather Prostate cancer Family/Other High blood pressure Father Alcohol abuse Daughter FH: mental illness Social History Household Members: Spouse and Family Household Members Other:: [place] Housing: House Are you a primary day care provider to a significant other at home: No Do you presently have visiting nurse or other home services: No Unable to assess alcohol history related to: Unknown Alcohol intake: former Comment: restraints Patient Tobacco Use Status: Former Tobacco user Tobacco use type: Cigarette e-Cigarette/Vaping Use: Never Used Second Hand Smoke Exposure: No Advance Directives Date on File: 08/08/22 service: No Current occupational status: employed 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 Shamar Diaz, Janene Yates, Lavon Serna and colleagues, with an educational lo from [employer]. Review of Systems Const Denies chills, Denies fatigue, Denies fever(s), Denies headache(s) and Denies weakness ENT Denies dizziness and Denies headache(s) Card Denies dyspnea Resp Denies cough, Denies dyspnea, Denies wheezing and Denies other (shortness of breath) Musc Denies numbness and Denies tingling Neuro Denies dizziness, Denies headache(s), Denies numbness, Denies tingling and Denies weakness Psych Denies anxiety and Denies depression Endo Denies fatigue Aller/Immun Denies wheezing Physical exam (Primary Care) Tobacco/Smoking Status: Tobacco use Status Tobacco use date assessed 11/28/24 02/04/25 10:29 Patient Tobacco Use Status Former Tobacco user 02/04/25 10:29 Tobacco use type Cigarette 02/04/25 10:29 e-Cigarette/Vaping Use Never Used 02/04/25 10:29 Thrive Assessment: Date of Thrive Assessment Date Thrive assessed 10/27/24 02/04/25 10:29 Telehealth Telehealth Telehealth Platform: Telephone Location of provider rendering services: practice address Location of patient: address on file Patient Identification confirmed using: Name, : Yes Telehealth method: voice only Patient verbally consented to treatment: Yes Patient verbally consented to billing insurance company: Yes Patient informed of any privacy concerns related to visit: Yes Minutes spent on Phone/Video with Pt.: 14 Coding Level of Care Code Tele Est Pt Level 2 (88464) Diagnoses Elevated liver enzymes R74.8 Diabetes E11.9 Status post colostomy Z93.3 Hives L50.9 Assessment & Plan Assessment & Plan (1) Elevated liver enzymes: Code(s): R74.8 - Abnormal levels of other serum enzymes Category: Medical Plan: Liver?enzymes?improved?slightly She?is?working?on?weight?loss Ultrasound?showed?hepatic?steatosis?and?hepatomegaly?without?any?masses As?above,?continue?weight?loss?and?good?hydration Will?continue?to?monitor (2) Diabetes: Code(s): E11.9 - Type 2 diabetes mellitus without complications Category: Medical Plan: A1c?6.2%.??Good?control.??Goal?is?less?than?7?sent Continue?current?medication (3) Status post colostomy: Code(s): Z93.3 - Colostomy status Category: Surgical Plan: Stable She?does?note?more?gas?lately?and?this?is?likely?secondary?to?her?Mounjaro He?has?no?if?this?is?worsening Advised?her?to?discuss?with?her?customer experience manager (4) Hives: Code(s): L50.9 - Urticaria, unspecified Category: Medical Plan: Recurrent?urticaria?and?hives Referred?to?immunology She?is?taking?loratadine?and?will?try?some?Benadryl?at?night?for?the?next?couple ?weeks. Orders: Referrals Allergy & Immunology Referral L50.9 - Urticaria, unspecified
--- OUTSIDE RECORDS SUMMARY | 2025-02-04 11:30 | XMS_ITS | Patient Health Record ---
Author Organization Shamar Do III, MD Address [address] [place] [address] [address] [place] [address] Care Team Providers Care Customer Consultant Name Role Phone Manolo Bonilla Primary Care Provider Unavailab Shamar Munguia Unavailable [phone] Allergies Allergen (clinical drug ingredient) Drug/Non Drug [...] Problem Status W/U Status Risk Notes Problem 132818449 Thrombocytopenia (D69.6) Active confirmed Her platelet count has returned to normal and she has had no bleeding or clotting. Problem 378133073 Obesity (BMI 30-39.9) (E66.9) Active confirmed Her weight has been volatile. Her body mass index is now 32.7. We have discussed lifestyle modification diet and nutrition at length. Problem 79803710 Essential hypertension (I10) Active confirmed Her blood pressure is currently normal and no change in her regimen is necessary. The value is 122/82. I recommended weight loss and sodium restriction. Problem 99678781 Degenerative dis c disease, cervical (M50.30) Active confirmed Problem 514398289 History of cholecystectomy (Z90.49) Active confirmed Problem 77877413 Leukopenia, unspecified type (D72.819) Active confirmed The value is now in the normal range. She has had no recent infections. Problem 88243407 Normochromic normocytic anemia (D64.9) Active confirmed The hematocrit and mean cell volume are now normal. 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 I strongly recommended she continue routine and regular visits with PERSONAL SECRETARY. Problem 184102955 H/O tubal ligati on (Z98.51) Active confirmed Vital Signs Heart Rate 80 /min 04/28/2024 Temperature 99.9 degrees Fahrenheit 04/28/2024 Blood pressure diastolic 91 mm Hg 04/28/2024 Height 62 in 04/28/2024 Blood pressure systolic 149 mm Hg 04/28/2024 Weight 195 lbs 04/28/2024 BMI 35.66 kg/m2 04/28/2024 Encounters Encounter Location Date Provider Diagnosis Shamar Do III, MD [address] [place] [address] [place] [address] 04/28/2024 Shamar Do Leukopenia, unspecif ied type [...] Details Provider Name:Shamar Do, 04/29/2025 09:30:00 AM, [address] [place] [address] [address], [place], [address], Insurance Providers Payer Name Payer Address Payer Phone Subscriber Number Group Number Insured Name Patient Relationship to Insured Coverage Start Date Coverage End Date [facility] [address] [place] [phone] [id number] Ju Hankins Self - patient is the [...] 1994 tonsillectomy 1979 Hospitalization History Reason Date(Month/Year) [facility] May 2017
== END 2025-02-04 17:05 | disposition home or self-care (01) ==
LOC: HO.HMCFM 10:29
PROVIDERS: PCP Family Medicine; Visit Provider Family Medicine
DX: E11.9 Type 2 diabetes mellitus without complications (principal); Z93.3 Colostomy status; R74.8 Abnormal levels of other serum enzymes; L50.9 Urticaria, unspecified

== ENCOUNTER → 2025-02-04 10:29 | Outpatient (BNVA) | payer OTHER, SELFPAY | PROVIDERS: PCP Family Medicine; Visit Provider Family Medicine | DX: Z13.89 Encounter for screening for other disorder (principal) ==

== ENCOUNTER 2025-03-09 11:08 | Outpatient (REF) | payer OTHER, SELFPAY ==
--- OUTSIDE RECORDS SUMMARY | 2025-03-09 12:02 | XMS_ITS | Patient Health Record ---
Author Organization Shamar Do III, MD Address [address] [place] [address] [address] [place] [address] Care Team Providers Care Tare Man Name Role Phone Manolo Bonilla Primary Care Provider Unavailab Shamar Munguia Unavailable [phone] Allergies Allergen (clinical drug ingredient) Drug/Non Drug [...] Problem Status W/U Status Risk Notes Problem 853778835 Thrombocytopenia (D69.6) Active confirmed Her platelet count has returned to normal and she has had no bleeding or clotting. Problem 059770853 Obesity (BMI 30-39.9) (E66.9) Active confirmed Her weight has been volatile. Her body mass index is now 32.7. We have discussed lifestyle modification diet and nutrition at length. Problem 39559251 Essential hypertension (I10) Active confirmed Her blood pressure is currently normal and no change in her regimen is necessary. The value is 122/82. I recommended weight loss and sodium restriction. Problem 89883886 Degenerative dis c disease, cervical (M50.30) Active confirmed Problem 262449386 History of cholecystectomy (Z90.49) Active confirmed Problem 41845087 Leukopenia, unspecified type (D72.819) Active confirmed The value is now in the normal range. She has had no recent infections. Problem 37189547 Normochromic normocytic anemia (D64.9) Active confirmed The hematocrit and mean cell volume are now normal. Problem 486321009 HPV (human papilloma virus) infection (B97.7) Active confirmed The HPV DN A was found to thousand 12, but not in 2015. I strongly recommended she continue routine and regular visits with ROENTGENOLOGY TEACHER. Problem 719343154 H/O tubal ligati on (Z98.51) Active confirmed Vital Signs Heart Rate 80 /min 04/28/2024 Temperature 99.9 degrees Fahrenheit 04/28/2024 Blood pressure diastolic 91 mm Hg 04/28/2024 Height 62 in 04/28/2024 Blood pressure systolic 149 mm Hg 04/28/2024 Weight 195 lbs 04/28/2024 BMI 35.66 kg/m2 04/28/2024 Encounters Encounter Location Date Provider Diagnosis Shamar Do III, MD [address] [place] [address] [place] [address] 04/28/2024 Shamar Do Leukopenia, unspecif ied type [...] (COMPREHENSIVE METABOLIC ) 03/21/2021 CBC w DIFF 03/23/2020 CBC w DIFF 04/28/2024 CBC w DIFF 04/24/2022 CBC w DIFF 03/18/2019 CBC w DIFF 03/12/2018 CBC w DIFF 04/30/2023 CBC w DIFF 09/20/2020 CBC w DIFF 09/23/2019 CBC w DIFF 09/05/2018 CBC w DIFF 03/21/2021 CBC with MANUAL DIFFERENTIAL 09/17/2018 CBC WITH AUTO DIFF 10/22/2023 Next Appt Details Provider Name:Shamar Do, 04/29/2025 09:30:00 AM, [address] [place] [address] [address], [place], [address], Insurance Providers Payer Name Payer Address Payer Phone Subscriber Number Group Number Insured Name Patient Relationship to Insured Coverage Start Date Coverage End Date [facility] [address] [place] [phone] [id number] Ju Hankins Self - patient is the [...] 1994 tonsillectomy 1979 Hospitalization History Reason Date(Month/Year) [facility] May 2017
[2025-03-09 14:36] LABS: MANUAL DIFF FLAG NO
[2025-03-09 14:51] LABS: Basophils Percent Auto 0.5 % (0-2); Eosinophils Absolute Auto 0.1 X10*3/uL (0.0-0.4); Eosinophils Percent Auto 0.9 % (0-4); Hematocrit 45.5 % (37.0-47.0); Hemoglobin 15.6 g/dl (12.0-16.0); Imm Gran Abs Auto 0.02 X10*3/uL (0.00-0.03); Imm Gran Pct Auto 0.2 % (0.0-0.4); Lymphocytes Absolute Auto 2.7 X10*3/uL (1.2-4.9); Lymphocytes Percent Auto 31.2 % (20-40); Mean Corpuscular HGB Conc 34.3 g/dl (31.0-35.0); Mean Corpuscular Hemoglobin 31.6 pg (27.0-33.0); Mean Corpuscular Volume 92.3 fL (80.0-98.0); Mean Platelet Volume 10.3 fL (9.4-12.3); Monocytes Absolute Auto 0.6 X10*3/uL (0.1-1.2); Monocytes Percent Auto 6.5 % (2-11); Neutrophils Absolute Auto 5.2 x10*3/uL (2.0-8.3); Neutrophils Percent Auto 60.7 % (45-73); Platelet Count 249 X10*3/uL (160-400); Red Blood Count 4.93 X10*6/uL (4.20-5.50); Red Cell Distribution Width 12.6 % (11.0-16.0); White Blood Count 8.5 X10*3/uL (4.8-10.8)
[2025-03-09 15:05] LABS: Alanine Aminotransferase 50 U/L (0-31); Albumin Level 4.4 g/dL (3.5-5.0); Alkaline Phosphatase 156 U/L (39-117); Anion Gap 11 (12-20); Aspartate Amino Transferase 45 U/L (5-31); Bilirubin Total 0.3 mg/dL (0.0-1.0); Blood Urea Nitrogen 15 mg/dL (9-16); Calcium 9.5 mg/dL (8.4-10.2); Carbon Dioxide 28 mmol/L (22-29); Chloride 107 mmol/L (96-108); Estimated Glomerular Filt Rate 57; Glucose Random 81 mg/dL (60-115); Sodium 142 mmol/L (135-145); Total Protein 7.5 g/dL (6.5-8.0)
[2025-03-11 14:53] LABS: Immunoglobulin E 162 kU/L (<OR=114)
[2025-03-12 19:17] LABS: Class Alternaria alternata 0; Class Aspergillus fumigatus 0; Class Bermuda Grass 0; Class Birch 0; Class Cat Dander 0; Class Cladosporium herbarum 0; Class Cockroach 0; Class Common Ragweed 0; Class Cottonwood 0; Class Derm. pterony 0/1; Class Dermatophagoides farinae 0; Class Dog Dander 0; Class Elm 0; Class Maple Box Elder 0; Class Mountain Cedar 0; Class Mouse Urine Protein 0; Class Mugwort 0; Class Oak 0; Class Penicillium crysogenum 0; Class Rough Pigweed 0; Class Sheep Sorrel 0; Class Sycamore 0; Class Timothy Grass 0; Class Walnut Tree 0; Class White Ash 0; Class White Mulberry 0; D002 - IgE D farinae <0.10 kU/L; E001 - IgE Cat Dander <0.10 kU/L; E005 - IgE Dog Dander <0.10 kU/L; E072-IgE Mouse Urine <0.10 kU/L; G002 IgE Bermuda Grass <0.10 kU/L; G006 - IgE Timothy Grass <0.10 kU/L; I006-IgE Cockroach, German <0.10 kU/L; Immunoglobulin E 176 kU/L (<OR=114); M001 IgE Penicillium chrysogen <0.10 kU/L; M002 - IgE Cladosporium herbar <0.10 kU/L; M003 - IgE Aspergillus fumigat <0.10 kU/L; M006 - IgE Alternaria alternat <0.10 kU/L; T001 IgE Maple/Box Elder <0.10 kU/L; T003 IgE Common Silver Birch <0.10 kU/L; T006 - IgE Cedar, Mountain <0.10 kU/L; T007 - IgE Oak, White <0.10 kU/L; T008 IgE Elm, American <0.10 kU/L; T010 - IgE Walnut <0.10 kU/L; T011 - IgE Maple Leaf Sycamore <0.10 kU/L; T014 - IgE Cottonwood <0.10 kU/L; T015 - IgE Ash, White <0.10 kU/L; T070 - IgE White Mulberry <0.10 kU/L; W001 - IgE Ragweed, Short <0.10 kU/L; W006 - IgE Mugwort <0.10 kU/L; W014 IgE Pigweed, Common <0.10 kU/L; W018 IgE Sheep Sorrel <0.10 kU/L
== END 2025-03-09 11:09 | disposition home or self-care (01) ==
LOC: HO.WFDLDS 11:08
PROVIDERS: Visit Provider Nurse Practitioner Family
DX: L50.9 Urticaria, unspecified (principal); L29.9 Pruritus, unspecified
CPT/HCPCS: 36415; 80053; 82785; 83520; 85025; 86003

== ENCOUNTER 2025-04-13 08:38 | Outpatient (AMB) | payer OTHER, SELFPAY ==
--- OUTSIDE RECORDS SUMMARY | 2025-04-13 09:01 | XMS_ITS | Patient Health Record ---
Author Organization Shamar Do III, MD Address [address] [place] [address] [address] [place] [address] Care Team Providers Care Acute Care Nurse Name Role Phone Manolo Bonilla Primary Care Provider Unavailab Shamar Munguia Unavailable [phone] Allergies Allergen (clinical drug ingredient) Drug/Non Drug [...] Problem Status W/U Status Risk Notes Problem 425389663 Thrombocytopenia (D69.6) Active confirmed Her platelet count has returned to normal and she has had no bleeding or clotting. Problem 481514521 Obesity (BMI 30-39.9) (E66.9) Active confirmed Her weight has been volatile. Her body mass index is now 32.7. We have discussed lifestyle modification diet and nutrition at length. Problem 11094715 Essential hypertension (I10) Active confirmed Her blood pressure is currently normal and no change in her regimen is necessary. The value is 122/82. I recommended weight loss and sodium restriction. Problem 24645286 Degenerative dis c disease, cervical (M50.30) Active confirmed Problem 409501943 History of cholecystectomy (Z90.49) Active confirmed Problem 46808253 Leukopenia, unspecified type (D72.819) Active confirmed The value is now in the normal range. She has had no recent infections. Problem 75982114 Normochromic normocytic anemia (D64.9) Active confirmed The hematocrit and mean cell volume are now normal. Problem 884521884 HPV (human papilloma virus) infection (B97.7) Active confirmed The HPV DN A was found to thousand 12, but not in 2015. I strongly recommended she continue routine and regular visits with TEMPLATE FITTER. Problem 155297485 H/O tubal ligati on (Z98.51) Active confirmed Vital Signs Heart Rate 80 /min 04/28/2024 Temperature 99.9 degrees Fahrenheit 04/28/2024 Blood pressure diastolic 91 mm Hg 04/28/2024 Height 62 in 04/28/2024 Blood pressure systolic 149 mm Hg 04/28/2024 Weight 195 lbs 04/28/2024 BMI 35.66 kg/m2 04/28/2024 Encounters Encounter Location Date Provider Diagnosis Shamar Do III, MD [address] [place] [address] [place] [address] 04/28/2024 Shamar Do Leukopenia, unspecif ied type [...] Details Provider Name:Shamar Do, 04/29/2025 09:30:00 AM, [address] [place] [address] [address], [place], [address], Insurance Providers Payer Name Payer Address Payer Phone Subscriber Number Group Number Insured Name Patient Relationship to Insured Coverage Start Date Coverage End Date [facility] [address] [place] [phone] [id number] Ju Hankins Self - patient is the [...] 1994 tonsillectomy 1979 Hospitalization History Reason Date(Month/Year) May 2017
--- OUTSIDE RECORDS SUMMARY | 2025-04-13 09:01 | XMS_ITS | Clinical Summary ---
Author Organization 175 [facility] Address [address] [place] [address] Phone Care Team Providers Care Qa Software Tester Name Role Phone Manolo Bonilla MD Primary Care Provider [phone] Allergies Active Allergy Reactions Criticality Noted Date Comments Ibuprofen 06/20/2024 Omeprazole 06/20/2024 Tramadol 06/20/2024 Medications No known medications Active Problems Problem Noted Date Diagnosed Date PONV (postoperative nausea and vomiting) 024 Arthritis 06/20/2024 Bilateral foot pain 06/20/2024 Carpal tunnel syndrome 06/20/2024 Crohn disease ([facility] V24, [facility] V28) 024 Dizziness 06/20/2024 Elevated blood pressure reading 06/20/2024 Fatty liver disease, nonalcoholic 06/20/2024 Fever of unknown origin 06/20/2024 Fibromyalgia 06/20/2024 Gastroparesis 06/20/2024 Hypertriglyceridemia 06/20/[address] ([facility] V24, [facility] V28) Intra-abdominal abscess ([facility] V24, [facility] V2 8) 06/20/2024 Iron deficiency anemia 06/20/2024 Leukocytosis 06/20/2024 Migraines 06/20/2024 Pain in right foot 06/20/2024 Parastomal hernia 06/20/2024 Perforated viscus 06/20/2024 Prediabetes 06/20/2024 Recurrent vomiting 06/20/2024 Seborrheic dermatitis 06/20/2024 Shock ([facility] V24, [facility] V28) 06/20/2024 Sinusitis 06/20/2024 Subcutaneous abscess 06/20/2024 Encounters Date Type Department Care Team Description 02/09/2025 8:15 AM EDT Office Visit Orthopedic Surgery [facility] [address] [phone] Matthew Hall DPM Metatarsalgia of right foot (Primary Dx); Neuritis from Last 3 Months Social History [...] Concentration - - Weight 89.4 kg (197 lb 1.5 oz) 02/09/2025 8:21 A M EDT Height 157.5 cm (5' 2.01 ) 02/09/2025 8:21 AM ED T Body Mass Index 36.04 02/09/2025 8:21 AM EDT Plan of Treatment Upcoming Encounters Date Type Department Care Team (Late st Contact Info) Description 04/20/2025 9:00 AM EDT Office Visit Orthopedic Surgery - [place] [address] [phone] Matthew Hall DPM [address] [address] Health Maintenance Due Date Last Done Comments Breast Cancer Screening 1961 Diabetes: Annual Foot Exam 1971 Diabetes: Annual Retina Eye Exam 1971 DTaP,Tdap,and Td Vaccines (1 - Tdap) 01/17/1980 Cervical Cancer Screening: Pap Smear 1982 Pneumococcal Vaccine: 50+ Years (2 of 2 - PCV) 01/02/2018 01/02/2017 Diabetes: Annual GFR (Glomerular Filtration Rate) 10/10/2019 10/10/2018, 10/09/2018, 09/06/2018, Additional history exists Cholesterol Screening (Lipid Panel) 06/23/2024 Colorectal Cancer Screening: Colonoscopy 06/23/2024 HIV Screening 06/23/2024 Hepatitis C Screening 06/23/2024 Social Influencers of Health Screening 06/23/2024 Depression Screening 09/10/2024 Diabetes: Annual Urine Albumin-Creatinine Ratio (uACR) 02/09/2025 Diabetes: Blood Sugar Control Test (HGBA1C) 02/09/2025 Influenza Vaccine (#1) 2025 , 06/06/2023, 10/26/2022, Additional history exists Zoster Vaccines Completed 08/16/2020, 05/26/2020 COVID-19 Vaccine Completed 05/29/2024, , 11/19/2022, Additional history exists RSV Immunization Adult Patients [...] patient's age to complete this topic Insurance [employer] Care Teams Qa Software Tester Relationship Specialty Start Date End Date Manolo Bonilla MD [address] [place] [address] Dr Leonel [place] PCP - General 05/05/24
--- OUTSIDE RECORDS SUMMARY | 2025-04-13 09:01 | XMS_ITS | Patient Health Record ---
Author Organization [facility] Address [address] [place] [phone] Care Team Providers Care Electrical Technology Instructor Name Role Phone Aren (RETIRED) Deandre SAUER Primary Care Provide r Unavailable Ramu Peralta Jr Unavailable MARIANO LANDIS Unavailable Unavailable Allergies Allergen (clinical drug ingredient) Drug/Non Drug Allergy documented on EMR Reaction Allergy Type Onset Date Status tramadol Ultram Unknown Drug Allergy Active omeprazole Omeprazole Unknown Drug Allergy Activ e Reason For Referral No Information Medications Medication SIG (Take, Route, Frequency, Duration) Notes Start Date End Date Status Claritin Active Cymbalta Active Pantoprazole Sodium 40 MG TAKE 1 TABLET BY MOUTH EVERY DAY for 90 days Active DULoxetine HCl 60 MG Oral for 90 Active Tylenol Active Methocarbamol Active [...] Problem Status W/U Status Risk Notes Problem 911270830 Gastro-esophagea l reflux disease without esophagitis (K21.9) Active confirmed Problem 330936769 Nausea (R11.0) Active confirmed Problem Gastroesophageal reflux disease (K21.9) Active confirmed Problem 08985738 Crohns disease o f both small and large intestine without complication (K50.80) Active confirmed Problem 950584608 Gastroesophageal reflux disease without esophagitis (K21.9) Active confirmed Problem 24606638 Colitis (K52.9) Active confirmed Problem 51145595 Diarrhea, unspecified type (R19.7) Active confirmed Problem 029242887 Irritable bowel syndrome with constipation (K58.1) Active confirmed Problem 36330420 Crohn's disease of colon without complication (K50.10) [...] Coverage End Date [employer] [place] [address] [address] [place], [place] [id number] Ju Pereyra Self - patient is the insured Medical (General) History Medical History History ICD Code esophageal reflux low vitamin D level arthritis carpal tunnel syndrome Denies RI,DM,CVA,Lung disease,renal dise ase iron deficiency anemia Crohn's colitis, last colonoscopy 2018, no active disease. Surgical History Surgery Date(Month/Year) neck surgery cholecystectomy tubal ligation several orthopedic surgeries
--- OUTSIDE RECORDS SUMMARY | 2025-04-13 09:01 | XMS_ITS | Clinical Summary ---
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 Active rizatriptan (MAXALT) 10 MG tablet Take 10 mg by mouth daily as needed. 11/30/19 Active ondansetron (ZOFRAN-ODT) [address] 1 TABLET ON THE TONGUE AND ALLOW TO DISSOLVE NEEDED ORALLY ONCE A DAY 11/30/19 Active loratadine (CLARITIN) 10 mg tablet Take 10 mg by mouth daily. Active AJOVY SYRINGE 225 mg/1.5 mL subcutaneous syringe Inject 225 mg under the skin every 30 (thirty) days. 03/17/20 22 Active DULoxetine (CYMBALTA) 20 MG capsule Take 1 capsule by mouth 2 (two) times a day. Patient taking 30 mg bid 02/03/20 Active magnesium oxide 400 mg magnesium Tab Take 800 mg by mouth 2 (two) times a day. Active pantoprazole (PROTONIX) 40 MG tablet Take 1 tablet by mouth every morning. 06/29/20 23 Active MOUNJARO 2.5 mg/0.5 mL PnIj subcutaneous pen Inject 2.5 mg under the skin once a week. 12/23/19 25 Active methocarbamoL (ROBAXIN) 750 MG tabletIndications: Fibromyalgia TAKE 1 TABLET BY MOUTH 3 TIMES A DAY. 90 tablet 2 04/10/20 25 Active methocarbamoL (ROBAXIN) 750 MG tabletIndications: Fibromyalgia TAKE 1 TABLET BY MOUTH 3 TIMES A DAY. 90 tablet 2 01/16/20 25 025 Discontinued Active Problems Problem Noted Date Diagnosed Date Type 2 diabetes mellitus 01/28/2025 Class 2 severe obesity due t o excess calories with serious comorbidity and body mass index (BMI) of 35.0 to 35.9 in adult 08/04/2024 Assessment & Plan (01/28/2025 3:18 PM EDT): Continue diligent portion control especially in view of gaining 1 lb from 193 on 08/04/2024 up to 194 today. Limit concentrated sugars, saturated fats and calories in the diet. Keep well-hydrated. If unable to achieve expected goal consider formal dietary/nutritional support. Assessment & Plan (08/04/2024 9:50 AM EST): Continue diligent portion control especially in view of gaining 5 pounds from 188 on 03/31/2024 up to 193 today. Limit concentrated sugars, saturated fats and calories in the diet. Keep well-hydrated. If unable to achieve expected goal consider formal dietary/nutritional support. Rotator cuff arthropathy of right shoulder 11/29 Assessment & Plan (11/30/2023 9:03 AM EDT): Use warm packs versus warm shower prior to gentle, regular ROM, stretching and muscle strengthening exercises-examples of exercises with pictures and detailed instructions printed for home use and formal PT referral provided for obtaining proper technique. If symptoms progress despite above measures may need to consider local steroid injection. Hypomagnesemia 08/10/2023 Assessment & Plan (01/28/2025 3:25 PM EDT): Serum level requested prior to taking daily supplement of magnesium to assure sufficiency She is reminded to improve her compliance with chewable evening dose to reduce severe cramps during the night. Assessment & Plan (08/04/2024 9:27 AM EST): Serum level requested prior to taking daily supplement of magnesium to assure sufficiency She is reminded to improve her compliance with chewable evening dose to reduce severe cramps during the night. Assessment & Plan (04/05/2024 8:36 PM EDT): Serum level requested prior to taking daily supplement of magnesium to assure sufficiency She is reminded to improve her compliance with chewable evening dose to reduce severe cramps during the night. 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 She is still recovering and hoping for colostomy reversal within the next couple of months. Tendinitis, de Quervain's 02/07/2023 Assessment & Plan (02/07/2023 9:32 AM EDT): Procedure: After an informed oral consent, under sterile conditions using Ethyl chloride spray for local anesthesia I have injected 20 mg Kenalog and 0.5 cc 1% Lidocaine into Left thumb flexor tendon uneventfully. Details of post-procedure care were explained to the patient in the office and given in writing. Provider: Tory Cordova MD Patient: Arcadio Hankins : 1960 Date: 02/07/2023 Migraine without aura or status migrainosus 12/2021 Assessment & Plan (01/28/2025 3:09 PM EDT): Keep well-hydrated. Regular meditation/relaxation sessions. Sleep hygiene. Gentle, regular exercise routine. Keep a diary of headaches with modifying factors to look for possible triggers. Follow with her neurologist exactly as scheduled Assessment & Plan (08/04/2024 9:27 AM EST): Keep well-hydrated. Regular meditation/relaxation sessions. Sleep hygiene. Gentle, regular exercise routine. Keep a diary of headaches with modifying factors to look for possible triggers. Follow with her neurologist exactly as scheduled Assessment & Plan (03/31/2024 10:30 AM EDT): Keep well-hydrated. Regular meditation/relaxation sessions. Sleep hygiene. Gentle, regular exercise routine. Keep a diary of headaches with modifying factors to look for possible triggers. Follow with her neurologist exactly as scheduled Assessment & Plan (04/10/2022 11:16 AM EDT): Keep well-hydrated. Regular meditation/relaxation sessions. Sleep hygiene. Gentle, regular exercise routine. Keep a diary of headaches with modifying factors to look for possible triggers. Follow with her neurologist exactly as scheduled Assessment & Plan (12/17/2021 2:48 PM EDT): Keep well-hydrated. Regular meditation/relaxation sessions. Sleep hygiene. Gentle, regular exercise routine. Keep a diary of headaches with modifying factors to look for possible triggers. Follow with her neurologist exactly as scheduled Lateral epicondylitis of right elbow 09/26/2021 Assessment & Plan (09/26/2021 8:56 AM EST): Joint protection, energy conservation techniques. Gentle, regular exercise routine-examples of appropriate exercises with pictures and detailed instructions printed for home use. Topical cream such as Arnica, Voltaren, Biofreeze versus medicated patches such as Salonpas or IcyHot patch 2-3 times daily and if needed at bedtime. Call if worse or not better despite above measures Plantar fasciitis of right foot 01/06/2021 Assessment & Plan (01/06/2021 3:33 PM EDT): Procedure: After an informed oral consent, under sterile conditions using Ethyl chloride spray for local anesthesia I have injected 30 mg DepoMedrol and 1.5 cc 1% Lidocaine into Right plantar fascia uneventfully. Details of post-procedure care were explained to the patient in the office and given in writing. Foot pain, left 01/06/2021 Assessment & Plan (2021 4:51 PM EDT): Gentle stretching, ROM and muscle strengthening exercises after warm pack application. Well fitting and supportive shoes. Topical cream versus patch as needed. Family history of breast cancer 11/29/2020 Overview (11/29/2020): Maternal grandmother breast cancer First cousin breast cancer First cousin colon cancer Hives 11/22/2020 Assessment & Plan (11/28/2020 2:51 PM EDT): New set of labs requested today. Carefully continue Benadryl as needed and tolerated. Consider checkup with emergency specialist versus animal care provider if not better. On SSRI therapy 09/20/2020 Assessment & Plan (01/28/2025 3:24 PM EDT): Monitor for mood swings, increased muscle rigidity and temperature intolerance. Assessment & Plan (08/10/2023 8:36 AM EST): Monitor for mood swings, increased muscle rigidity and temperature intolerance. Assessment & Plan (04/10/2022 11:16 AM EDT): Monitor for mood swings, increased muscle rigidity and temperature intolerance. Assessment & Plan (12/12/2021 12:04 PM EDT): Monitor for mood swings, increased muscle rigidity and temperature intolerance. Assessment & Plan (06/08/2021 9:25 PM EDT): Monitor for mood swings, increased muscle rigidity and temperature intolerance. Assessment & Plan (11/22/2020 9:03 AM EDT): Monitor for mood swings, increased muscle rigidity and temperature intolerance. Assessment & Plan (09/20/2020 9:02 AM EST): Monitor for mood swings, increased muscle rigidity and temperature intolerance. Crohn's disease of small intestine without compl ication 12/25/2019 Assessment & Plan (04/10/2022 11:15 AM EDT): Continue treatment with mesalamine (Apriso) and dietary modifications as instructed by treating sound effects manager. Assessment & Plan (12/17/2021 2:48 PM EDT): Continue treatment with mesalamine (Apriso) and dietary modifications as instructed by treating sound effects manager. Assessment & Plan (11/22/2020 9:04 AM EDT): Continue treatment with mesalamine (Apriso) and dietary modifications as instructed by treating sound effects manager. Assessment & Plan (09/20/2020 9:03 AM EST): Continue treatment with mesalamine (Apriso) and dietary modifications as instructed by treating sound effects manager. Assessment & Plan (07/12/2020 9:14 AM EST): Continue treatment with mesalamine (Apriso) and dietary modifications as instructed by treating sound effects manager. Assessment & Plan (03/16/2020 11:49 AM EDT): Continue treatment with mesalamine (Apriso) and dietary modifications as instructed by treating sound effects manager. Assessment & Plan (12/25/2019 9:04 AM EDT): Continue treatment with mesalamine (Apriso) and dietary modifications as instructed by treating sound effects manager. Trochanteric bursitis 02/13/2019 Chronic gastritis without bleeding 10/10/2018 Assessment & Plan (03/16/2020 11:49 AM EDT): New close follow-up with sound effects manager exactly as scheduled. Avoid late, large, spicy meals. Keep headboard elevated at 45 angle for nighttime. Assessment & Plan (08/06/2019 8:36 AM EST): Avoid late, large, spicy meals. Keep headboard elevated at 45 angle for nighttime. Raynaud's disease without gangrene 10/10/2018 Assessment & Plan (01/28/2025 3:09 PM EDT): Keep warm, dress in layers. Optimize stress management strategies. Avoid vasoconstrictors in OTC products for cold/flu and sinus. Assessment & Plan (08/04/2024 9:06 AM EST): Keep warm, dress in layers. Optimize stress management strategies. Avoid vasoconstrictors in OTC products for cold/flu and sinus. Assessment & Plan (03/31/2024 10:30 AM EDT): Keep warm, dress in layers. Optimize stress management strategies. Avoid vasoconstrictors in OTC products for cold/flu and sinus. Assessment & Plan (11/30/2023 8:03 AM EDT): Keep warm, dress in layers. Optimize stress management strategies. Avoid vasoconstrictors in OTC products for cold/flu and sinus. Assessment & Plan (08/10/2023 8:11 AM EST): Keep warm, dress in layers. Optimize stress management strategies. Avoid vasoconstrictors in OTC products for cold/flu and sinus. Assessment & Plan (02/07/2023 9:50 AM EDT): Keep warm, dress in layers. Optimize stress management strategies. Avoid vasoconstrictors in OTC products for cold/flu and sinus. Assessment & Plan (04/10/2022 11:16 AM EDT): Keep warm, dress in layers. Optimize stress management strategies. Avoid vasoconstrictors in OTC products for cold/flu and sinus. Assessment & Plan (12/12/2021 12:04 PM EDT): Keep warm, dress in layers. Optimize stress management strategies. Avoid vasoconstrictors in OTC products for cold/flu and sinus. Assessment & Plan (09/26/2021 8:15 AM EST): Keep warm, dress in layers. Optimize stress management strategies. Avoid vasoconstrictors in OTC products for cold/flu and sinus. Assessment & Plan (05/30/2021 8:36 AM EDT): Keep warm, dress in layers. Optimize stress management strategies. Avoid vasoconstrictors in OTC products for cold/flu and sinus. Assessment & Plan (02/28/2021 10:13 AM EDT): Keep warm, dress in layers. Optimize stress management strategies. Avoid vasoconstrictors in OTC products for cold/flu and sinus. Assessment & Plan (01/06/2021 3:31 PM EDT): Keep warm, dress in layers. Optimize stress management strategies. Avoid vasoconstrictors in OTC products for cold/flu and sinus. Assessment & Plan (11/22/2020 9:03 AM EDT): Keep warm, dress in layers. Optimize stress management strategies. Avoid vasoconstrictors in OTC products for cold/flu and sinus. Assessment & Plan (09/20/2020 9:02 AM EST): Keep warm, dress in layers. Optimize stress management strategies. Avoid vasoconstrictors in OTC products for cold/flu and sinus. Assessment & Plan (07/12/2020 9:13 AM EST): Keep warm, dress in layers. Optimize stress management strategies. Avoid vasoconstrictors in OTC products for cold/flu and sinus. Assessment & Plan (03/15/2020 9:08 AM EDT): Keep warm, dress in layers. Optimize stress management strategies. Avoid vasoconstrictors in OTC products for cold/flu and sinus. Assessment & Plan (12/25/2019 8:14 AM EDT): Keep warm, dress in layers. Optimize stress management strategies. Avoid vasoconstrictors in OTC products for cold/flu and sinus. Assessment & Plan (08/06/2019 8:40 AM EST): Keep warm, dress in layers. Optimize stress management strategies. Avoid vasoconstrictors in OTC products for cold/flu and sinus. Paresthesia of skin 02/14/2018 Assessment & Plan (04/05/2024 8:37 PM EDT): Avoid frequent touching of painful region and consider topical capsaicin carefully nightly x 2-3 weeks. Carpal tunnel syndrome of left wrist 02/14/2018 Assessment & Plan (08/04/2024 9:51 AM EST): Continue wearing splint for extended activities and follow joint protection, energy conservation techniques. Consider interval EMG/NCS if worse despite above strategies. Acute pain of left knee 11/08/2017 Pain of left middle finger 11/08/2017 Inflammatory polyarthritis 11/08/2017 Assessment & Plan (01/28/2025 3:09 PM EDT): Clinically appears stable on exam today. We continue monitoring closely without any specific disease modifying antirheumatic drugs as long as she is able to manage without. Continue joint protection, energy conservation. Avoid falls, injuries, overuse. Gentle, regular exercise routine to keep optimal function without developing contractions muscle weakness She was hoping to get reversal of colostomy but after several severe health issues from the beginning of 2023- decided to forfeit it now. Get the labs today and prior to next visit in 4 months as ordered. Topical cream versus patch 2-3 times daily or at least at bedtime up to 3 weeks as needed. She may utilize sandwich technique particularly prior to bed rest as long as there is no skin irritation. Assessment & Plan (08/04/2024 9:06 AM EST): Clinically appears stable on exam today. We continue monitoring closely without any specific disease modifying antirheumatic drugs as long as she is able to manage without. Continue joint protection, energy conservation. Avoid falls, injuries, overuse. Gentle, regular exercise routine to keep optimal function without developing contractions muscle weakness She was hoping to get reversal of colostomy but after several severe health issues from the beginning of 2023- decided to forfeit it now. Get the labs today and prior to next visit in 4 months as ordered. Topical cream versus patch 2-3 times daily or at least at bedtime up to 3 weeks as needed. She may utilize sandwich technique particularly prior to bed rest as long as there is no skin irritation. Assessment & Plan (03/31/2024 10:29 AM EDT): Clinically appears stable on exam today. We continue monitoring closely without any specific disease modifying antirheumatic drugs as long as she is able to manage without. Continue joint protection, energy conservation. Avoid falls, injuries, overuse. Gentle, regular exercise routine to keep optimal function without developing contractions muscle weakness She was hoping to get reversal of colostomy but after several severe health issues from the beginning of 2023 decided to forfeit it now. Get the labs today and prior to next visit in 4 months as ordered. Topical cream versus patch 2-3 times daily or at least at bedtime up to 3 weeks as needed. She may utilize sandwich technique particularly prior to bed rest as long as there is no skin irritation. Assessment & Plan (11/30/2023 9:01 AM EDT): Clinically appears stable on exam today. We continue monitoring closely without any specific disease modifying antirheumatic drugs as long as she is able to manage without. Continue joint protection, energy conservation. Avoid falls, injuries, overuse. Gentle, regular exercise routine to keep optimal function without developing contractions muscle weakness She was hoping to get reversal of colostomy but after several severe health issues from the beginning of 2023- decided to forfeit it now. Get the labs today and prior to next visit in 4 months as ordered. Topical cream versus patch 2-3 times daily or at least at bedtime up to 3 weeks as needed. She may utilize sandwich technique particularly prior to bed rest as long as there is no skin irritation. Assessment & Plan (08/10/2023 8:34 AM EST): Joint protection, energy conservation. Avoid falls, injuries, overuse. Gentle, regular exercise routine to keep optimal function without developing contractions muscle weakness She is hoping to get reversal of colostomy within the next couple of months. Get the labs today and prior to next visit in 3 months as ordered. Topical cream versus patch 2-3 times daily or at least at bedtime up to 3 weeks as needed. Assessment & Plan (02/17/2023 9:10 PM EDT): Joint protection, energy conservation. Avoid falls, injuries, overuse. Gentle, regular exercise routine to keep optimal function without developing contractions muscle weakness She is hoping to get reversal of colostomy within the next couple of months. Get the labs monitoring safety and efficacy of therapy prior to next visit in 6 months as ordered. Topical cream versus patch 2-3 times daily or at least at bedtime up to 3 weeks as needed. Assessment & Plan (04/10/2022 11:13 AM EDT): Joint protection, energy conservation. Avoid falls, injuries, overuse. Gentle, regular exercise routine to keep optimal function without developing contractions muscle weakness Continue treatment for inflammatory colitis with mesalamine. Get the labs monitoring safety and efficacy of therapy prior to next visit in 4 months as ordered. Topical cream versus patch 2-3 times daily or at least at bedtime up to 3 weeks as needed. Assessment & Plan (12/12/2021 12:03 PM EDT): Joint protection, energy conservation. Avoid falls, injuries, overuse. Gentle, regular exercise routine to keep optimal function without developing contractions muscle weakness Continue treatment for inflammatory colitis with mesalamine. Get the labs monitoring safety and efficacy of therapy prior to next visit in 4 months as ordered. Topical cream versus patch 2-3 times daily or at least at bedtime up to 3 weeks as needed. Assessment & Plan (09/26/2021 8:55 AM EST): Joint protection, energy conservation. Avoid falls, injuries, overuse. Gentle, regular exercise routine to keep optimal function without developing contractions muscle weakness Continue treatment for inflammatory colitis with mesalamine. Get the labs monitoring safety and efficacy of therapy prior to next visit in 4 months as ordered. Topical cream versus patch 2-3 times daily or at least at bedtime up to 3 weeks as needed. Assessment & Plan (06/08/2021 9:24 PM EDT): Joint protection, energy conservation. Avoid falls, injuries, overuse. Gentle, regular exercise routine to keep optimal function without developing contractions muscle weakness Continue treatment for inflammatory colitis with mesalamine. Get the labs monitoring safety and efficacy of therapy prior to next visit in 4 months as ordered. Topical cream versus patch 2-3 times daily or at least at bedtime up to 3 weeks as needed. Assessment & Plan (03/12/2021 3:33 PM EDT): Joint protection, energy conservation. Avoid falls, injuries, overuse. Gentle, regular exercise routine to keep optimal function without developing contractions muscle weakness Continue treatment for inflammatory colitis with mesalamine. Get the labs monitoring safety and efficacy of therapy prior to next visit in 3 months as ordered. Topical cream versus patch 2-3 times daily or at least at bedtime up to 3 weeks as needed. Assessment & Plan (2021 4:47 PM EDT): Joint protection, energy conservation. Avoid falls, injuries, overuse. Continue treatment for inflammatory colitis with mesalamine. Get the labs monitoring safety and efficacy of therapy prior to next visit in 2 months as ordered. Topical cream versus patch 2-3 times daily or at least at bedtime up to 3 weeks as needed. Assessment & Plan (11/22/2020 9:03 AM EDT): Joint protection, energy conservation. Avoid falls, injuries, overuse. Continue treatment for inflammatory colitis with mesalamine. Get the labs monitoring safety and efficacy of therapy prior to next visit in 2 months as ordered. Topical cream versus patch 2-3 times daily or at least at bedtime 3 weeks as needed. Assessment & Plan (09/20/2020 9:25 AM EST): Joint protection, energy conservation. Avoid falls, injuries, overuse. Continue treatment for inflammatory colitis with mesalamine. Get the labs monitoring safety and efficacy of therapy prior to next visit in 2 months as ordered. Topical cream versus patch 2-3 times daily or at least at bedtime 3 weeks as needed. Assessment & Plan (07/12/2020 9:13 AM EST): Joint protection, energy conservation. Avoid falls, injuries, overuse. Continue treatment for inflammatory colitis with mesalamine. Get the labs monitoring safety and efficacy of therapy prior to next visit in 4 months as ordered. Topical cream versus patch 2-3 times daily or at least at bedtime 3 weeks as needed. Assessment & Plan (03/16/2020 11:45 AM EDT): Joint protection, energy conservation. Avoid falls, injuries, overuse. Continue treatment for inflammatory colitis with mesalamine. Get the labs monitoring safety and efficacy of therapy prior to next visit in 4 months as ordered. Topical cream versus patch 2-3 times daily or at least at bedtime 3 weeks as needed. Assessment & Plan (12/25/2019 9:06 AM EDT): Joint protection, energy conservation. Avoid falls, injuries, overuse. Continue treatment for inflammatory colitis with mesalamine. Get the labs monitoring safety and efficacy of therapy prior to next visit in 2 months as ordered. Topical cream versus patch 2-3 times daily or at least at bedtime 3 weeks as needed. Assessment & Plan (08/06/2019 8:35 AM EST): Joint protection, energy conservation. Avoid falls, injuries, overuse. Continue treatment for inflammatory colitis with mesalamine. Topical cream versus patch 2-3 times daily or at least at bedtime 3 weeks as needed. Chronic right shoulder pain 08/09/2017 Primary osteoarthritis involving multiple joints 08/09/2017 Assessment & Plan (01/28/2025 3:09 PM EDT): Continue gentle, regular exercise routine as educated by PT/OT. Examples of shoulder exercises with pictures and detailed instructions printed for Keep body weight in ideal range for her height. Call if worse or with questions. May need to consider local steroid injection if not better or worse despite above measures. Assessment & Plan (08/04/2024 9:26 AM EST): Continue gentle, regular exercise routine as educated by PT/OT. Examples of shoulder exercises with pictures and detailed instructions printed for Keep body weight in ideal range for her height. Call if worse or with questions. May need to consider local steroid injection if not better or worse despite above measures. Assessment & Plan (03/31/2024 10:28 AM EDT): Continue gentle, regular exercise routine as educated by PT/OT. Examples of shoulder exercises with pictures and detailed instructions printed for Keep body weight in ideal range for her height. Call if worse or with questions. May need to consider local steroid injection if not better or worse despite above measures. Assessment & Plan (11/30/2023 8:31 AM EDT): Continue gentle, regular exercise routine as educated by PT/OT. Examples of shoulder exercises with pictures and detailed instructions printed for Keep body weight in ideal range for her height. Call if worse or with questions. May need to consider local steroid injection if not better or worse despite above measures. Assessment & Plan (08/10/2023 8:34 AM EST): Continue gentle, regular exercise routine as educated by PT/OT. Keep body weight in ideal range for her height. Call if worse or with questions. May need to consider local steroid injection if not better or worse despite above measures. Assessment & Plan (02/07/2023 9:50 AM EDT): Gentle, regular exercise routine as educated by PT/OT. Keep body weight in ideal range for her height. Call if worse or with questions. May need to consider local steroid injection if not better or worse despite above measures. Assessment & Plan (04/10/2022 11:14 AM EDT): Gentle, regular exercise routine as educated by PT/OT. Keep body weight in ideal range for her height. Call if worse or with questions. May need to consider local steroid injection if not better or worse despite above measures. Assessment & Plan (12/12/2021 12:03 PM EDT): Gentle, regular exercise routine as educated by PT/OT. Keep body weight in ideal range for her height. Call if worse or with questions. May need to consider local steroid injection if not better or worse despite above measures. Assessment & Plan (09/26/2021 8:57 AM EST): Gentle, regular exercise routine as educated by PT/OT. Keep body weight in ideal range for her height. Call if worse or with questions. May need to consider local steroid injection if not better or worse despite above measures. Assessment & Plan (05/30/2021 8:35 AM EDT): Gentle, regular exercise routine as educated by PT/OT. Keep body weight in ideal range for her height. Call if worse or with questions. May need to consider local steroid injection if not better or worse despite above measures. Assessment & Plan (03/12/2021 3:35 PM EDT): Gentle, regular exercise routine as educated by PT/OT. Keep body weight in ideal range for her height. Call if worse or with questions. May need to consider local steroid injection if not better or worse despite above measures. Assessment & Plan (2021 4:46 PM EDT): Gentle, regular exercise routine as educated by PT/OT. Keep body weight in ideal range for her height. Call if worse or with questions. Assessment & Plan (11/22/2020 9:03 AM EDT): Gentle, regular exercise routine as educated by PT/OT. Keep body weight in ideal range for her height. Call if worse or with questions. Assessment & Plan (09/20/2020 9:01 AM EST): Gentle, regular exercise routine as educated by PT/OT. Keep body weight in ideal range for her height. Call if worse or with questions. Assessment & Plan (07/12/2020 9:16 AM EST): Gentle, regular exercise routine as educated by PT/OT. Keep body weight in ideal range for her height. Call if worse or with questions. Assessment & Plan (03/15/2020 9:23 AM EDT): Gentle, regular exercise routine as educated by PT/OT. Keep body weight in ideal range for her height. Call if worse or with questions. Procedure: After an informed oral consent, under sterile conditions using Ethyl chloride spray for local anesthesia I have injected 20 mg DepoMedrol and 0.5 cc 1% Lidocaine into Left 1st CMC uneventfully. Details of post-procedure care were explained to the patient in the office and given in writing. Assessment & Plan (12/25/2019 8:13 AM EDT): Gentle, regular exercise routine as educated by PT/OT. Keep body weight in ideal range for her height. Call if worse or with questions. Assessment & Plan (08/06/2019 8:35 AM EST): Gentle, regular exercise routine as educated by PT/OT. Keep body weight in ideal range for her height. Call if worse or with questions. Fibromyalgia 08/09/2017 Assessment & Plan (01/28/2025 3:46 PM EDT): We discussed the diagnosis of fibromyalgia, its natural history, and treatment. Specifically, we discussed that treatment requires many interventions and recognition that we are often unable to get patients completely pain free. Management of fibromyalgia requires patient engagement to address any underlying depression, anxiety, or sleep disorder. Further, patients are encouraged to engage in regular physical activity. Some studies have suggested that Tino Chi is effective. Other physical activity may including water-based aerobics, etc. In terms of pharmacotherapy, there are many options, including tricyclic antidepressants, duloxetine, gabapentin or pregabalin, and cyclobenzaprine as well as other similar medications to those listed. In this case, the patient might try to focus on nonpharmacologic measures and current topical products due to her chronic inflammatory bowel disease. Carefully continue Cymbalta 60 mg daily in 2 divided doses as she tolerates it and finds it helpful. Continue gentle yoga that she found helpful. She may benefit from reading book written by Dr Leeroy [facility] [employer] [facility] addressing management strategies for patients with fibromyalgia using mindfulness approach. Another useful resource may be book written by Dr. Tina Benson Managing pain before it manages you She needs to sit about 10 minutes of every 30 minutes at work to be able to work full-time and asks for confirmatory letter to her [email or web address] to accommodate request for [employer] approved stool. Assessment & Plan (08/04/2024 9:06 AM EST): We discussed the diagnosis of fibromyalgia, its natural history, and treatment. Specifically, we discussed that treatment requires many interventions and recognition that we are often unable to get patients completely pain free. Management of fibromyalgia requires patient engagement to address any underlying depression, anxiety, or sleep disorder. Further, patients are encouraged to engage in regular physical activity. Some studies have suggested that Tino Chi is effective. Other physical activity may including water-based aerobics, etc. In terms of pharmacotherapy, there are many options, including tricyclic antidepressants, duloxetine, gabapentin or pregabalin, and cyclobenzaprine as well as other similar medications to those listed. In this case, the patient might try to focus on nonpharmacologic measures and current topical products due to her chronic inflammatory bowel disease. Carefully continue Cymbalta 60 mg daily as she tolerates it and finds it helpful. Continue gentle yoga that she found helpful. She may benefit from reading book written by Dr Leeroy holt addressing management strategies for patients with fibromyalgia using mindfulness approach. Another useful resource may be book written by Dr. Tina Benson Managing pain before it manages you She needs to sit about 10 minutes of every 30 minutes at work to be able to work full-time and asks for confirmatory letter to her [email or web address] to accommodate request for [employer] approved stool. Assessment & Plan (03/31/2024 10:29 AM EDT): We discussed the diagnosis of fibromyalgia, its natural history, and treatment. Specifically, we discussed that treatment requires many interventions and recognition that we are often unable to get patients completely pain free. Management of fibromyalgia requires patient engagement to address any underlying depression, anxiety, or sleep disorder. Further, patients are encouraged to engage in regular physical activity. Some studies have suggested that Tino Chi is effective. Other physical activity may including water-based aerobics, etc. In terms of pharmacotherapy, there are many options, including tricyclic antidepressants, duloxetine, gabapentin or pregabalin, and cyclobenzaprine as well as other similar medications to those listed. In this case, the patient might try to focus on nonpharmacologic measures and current topical products due to her chronic inflammatory bowel disease. Carefully continue Cymbalta 60 mg daily as she tolerates it and finds it helpful. Continue gentle yoga that she found helpful. She may benefit from reading book written by Dr Leeroy holt addressing management strategies for patients with fibromyalgia using mindfulness approach. Another useful resource may be book written by Dr. 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 Assessment & Plan (11/30/2023 9:06 AM EDT): We discussed the diagnosis of fibromyalgia, its natural history, and treatment. Specifically, we discussed that treatment requires many interventions and recognition that we are often unable to get patients completely pain free. Management of fibromyalgia requires patient engagement to address any underlying depression, anxiety, or sleep disorder. Further, patients are encouraged to engage in regular physical activity. Some studies have suggested that Tino Chi is effective. Other physical activity may including water-based aerobics, etc. In terms of pharmacotherapy, there are many options, including tricyclic antidepressants, duloxetine, gabapentin or pregabalin, and cyclobenzaprine as well as other similar medications to those listed. In this case, the patient might try to focus on nonpharmacologic measures and current topical products due to her chronic inflammatory bowel disease. Carefully continue Cymbalta 60 mg daily as she tolerates it and finds it helpful. Continue gentle yoga that she found helpful. She may benefit from reading book written by Dr Leeroy Lag[facility] addressing management strategies for patients with fibromyalgia using mindfulness approach. Another useful resource may be book written by Dr. Tina Benson Managing pain before it manages you She needs to sit about 10 minutes of every 30 minutes at work to be able to work full-time and asks for confirmatory letter to her [employer] to accommodate request for [employer] approved stool. Assessment & Plan (08/10/2023 8:09 AM EST): We discussed the diagnosis of fibromyalgia, its natural history, and treatment. Specifically, we discussed that treatment requires many interventions and recognition that we are often unable to get patients completely pain free. Management of fibromyalgia requires patient engagement to address any underlying depression, anxiety, or sleep disorder. Further, patients are encouraged to engage in regular physical activity. Some studies have suggested that Tino Chi is effective. Other physical activity may including water-based aerobics, etc. In terms of pharmacotherapy, there are many options, including tricyclic antidepressants, duloxetine, gabapentin or pregabalin, and cyclobenzaprine as well as other similar medications to those listed. In this case, the patient might try to focus on nonpharmacologic measures and current topical products due to her chronic inflammatory bowel disease. Carefully continue Cymbalta 60 mg daily as she tolerates it and finds it helpful. Continue gentle yoga that she found helpful. She may benefit from reading book written by Dr Leeroy Lag[facility] addressing management strategies for patients with fibromyalgia using mindfulness approach Assessment & Plan (02/07/2023 9:50 AM EDT): We discussed the diagnosis of fibromyalgia, its natural history, and treatment. Specifically, we discussed that treatment requires many interventions and recognition that we are often unable to get patients completely pain free. Management of fibromyalgia requires patient engagement to address any underlying depression, anxiety, or sleep disorder. Further, patients are encouraged to engage in regular physical activity. Some studies have suggested that Tino Chi is effective. Other physical activity may including water-based aerobics, etc. In terms of pharmacotherapy, there are many options, including tricyclic antidepressants, duloxetine, gabapentin or pregabalin, and cyclobenzaprine as well as other similar medications to those listed. In this case, the patient might try to focus on nonpharmacologic measures and current topical products due to her chronic inflammatory bowel disease. Carefully continue Cymbalta 60 mg daily as she tolerates it and finds it helpful. Continue gentle yoga that she found helpful. She may benefit from reading book written by Dr Leeroy Lagos [facility] addressing management strategies for patients with fibromyalgia using mindfulness approach Assessment & Plan (04/10/2022 11:16 AM EDT): We discussed the diagnosis of fibromyalgia, its natural history, and treatment. Specifically, we discussed that treatment requires many interventions and recognition that we are often unable to get patients completely pain free. Management of fibromyalgia requires patient engagement to address any underlying depression, anxiety, or sleep disorder. Further, patients are encouraged to engage in regular physical activity. Some studies have suggested that Tino Chi is effective. Other physical activity may including water-based aerobics, etc. In terms of pharmacotherapy, there are many options, including tricyclic antidepressants, duloxetine, gabapentin or pregabalin, and cyclobenzaprine as well as other similar medications to those listed. In this case, the patient might try to focus on nonpharmacologic measures and current topical products due to her chronic inflammatory bowel disease. Carefully continue Cymbalta 60 mg daily as she tolerates it and finds it helpful. Continue gentle yoga that she found helpful. She may benefit from reading book written by Dr Leeroy Lagos [facility] addressing management strategies for patients with fibromyalgia using mindfulness approach Assessment & Plan (12/12/2021 12:04 PM EDT): We discussed the diagnosis of fibromyalgia, its natural history, and treatment. Specifically, we discussed that treatment requires many interventions and recognition that we are often unable to get patients completely pain free. Management of fibromyalgia requires patient engagement to address any underlying depression, anxiety, or sleep disorder. Further, patients are encouraged to engage in regular physical activity. Some studies have suggested that Tino Chi is effective. Other physical activity may including water-based aerobics, etc. In terms of pharmacotherapy, there are many options, including tricyclic antidepressants, duloxetine, gabapentin or pregabalin, and cyclobenzaprine as well as other similar medications to those listed. In this case, the patient might try to focus on nonpharmacologic measures and current topical products due to her chronic inflammatory bowel disease. Carefully continue Cymbalta 60 mg daily as she tolerates it and finds it helpful. Continue gentle yoga that she found helpful. She may benefit from reading book written by Dr Leeroy Lag[facility] addressing management strategies for patients with fibromyalgia using mindfulness approach Assessment & Plan (09/26/2021 8:13 AM EST): We discussed the diagnosis of fibromyalgia, its natural history, and treatment. Specifically, we discussed that treatment requires many interventions and recognition that we are often unable to get patients completely pain free. Management of fibromyalgia requires patient engagement to address any underlying depression, anxiety, or sleep disorder. Further, patients are encouraged to engage in regular physical activity. Some studies have suggested that Tino Chi is effective. Other physical activity may including water-based aerobics, etc. In terms of pharmacotherapy, there are many options, including tricyclic antidepressants, duloxetine, gabapentin or pregabalin, and cyclobenzaprine as well as other similar medications to those listed. In this case, the patient might try to focus on nonpharmacologic measures and current topical products due to her chronic inflammatory bowel disease. Carefully continue Cymbalta 60 mg daily as she tolerates it and finds it helpful. Continue gentle yoga that she found helpful. She may benefit from reading book written by Dr Leeroy Lagos [facility] addressing management strategies for patients with fibromyalgia using mindfulness approach Assessment & Plan (05/30/2021 8:36 AM EDT): We discussed the diagnosis of fibromyalgia, its natural history, and treatment. Specifically, we discussed that treatment requires many interventions and recognition that we are often unable to get patients completely pain free. Management of fibromyalgia requires patient engagement to address any underlying depression, anxiety, or sleep disorder. Further, patients are encouraged to engage in regular physical activity. Some studies have suggested that Tino Chi is effective. Other physical activity may including water-based aerobics, etc. In terms of pharmacotherapy, there are many options, including tricyclic antidepressants, duloxetine, gabapentin or pregabalin, and cyclobenzaprine as well as other similar medications to those listed. In this case, the patient might try to focus on nonpharmacologic measures and current topical products due to her chronic inflammatory bowel disease. Carefully continue Cymbalta 60 mg daily as she tolerates it and finds it helpful. Continue gentle yoga that she found helpful. She may benefit from reading book written by Dr Leeroy Lagos [facility] addressing management strategies for patients with fibromyalgia using mindfulness approach Assessment & Plan (02/28/2021 10:14 AM EDT): We discussed the diagnosis of fibromyalgia, its natural history, and treatment. Specifically, we discussed that treatment requires many interventions and recognition that we are often unable to get patients completely pain free. Management of fibromyalgia requires patient engagement to address any underlying depression, anxiety, or sleep disorder. Further, patients are encouraged to engage in regular physical activity. Some studies have suggested that Tino Chi is effective. Other physical activity may including water-based aerobics, etc. In terms of pharmacotherapy, there are many options, including tricyclic antidepressants, duloxetine, gabapentin or pregabalin, and cyclobenzaprine as well as other similar medications to those listed. In this case, the patient might try to focus on nonpharmacologic measures and current topical products due to her chronic inflammatory bowel disease. Carefully continue Cymbalta 60 mg daily as she tolerates it and finds it helpful. Continue gentle yoga that she found helpful. She may benefit from reading book written by Dr Leeroy Lagos [employer] [facility] addressing management strategies for patients with fibromyalgia using mindfulness approach Assessment & Plan (2021 4:49 PM EDT): We discussed the diagnosis of fibromyalgia, its natural history, and treatment. Specifically, we discussed that treatment requires many interventions and recognition that we are often unable to get patients completely pain free. Management of fibromyalgia requires patient engagement to address any underlying depression, anxiety, or sleep disorder. Further, patients are encouraged to engage in regular physical activity. Some studies have suggested that Tino Chi is effective. Other physical activity may including water-based aerobics, etc. In terms of pharmacotherapy, there are many options, including tricyclic antidepressants, duloxetine, gabapentin or pregabalin, and cyclobenzaprine as well as other similar medications to those listed. In this case, the patient might try to focus on nonpharmacologic measures and current topical products due to her chronic inflammatory bowel disease. Carefully continue Cymbalta 60 mg daily as she tolerates it and finds it helpful. Continue gentle yoga that she found helpful. She may benefit from reading book written by Dr Leeroy [facility] addressing management strategies for patients with fibromyalgia using mindfulness approach Assessment & Plan (11/28/2020 2:55 PM EDT): We discussed the diagnosis of fibromyalgia, its natural history, and treatment. Specifically, we discussed that treatment requires many interventions and recognition that we are often unable to get patients completely pain free. Management of fibromyalgia requires patient engagement to address any underlying depression, anxiety, or sleep disorder. Further, patients are encouraged to engage in regular physical activity. Some studies have suggested that Tino Chi is effective. Other physical activity may including water-based aerobics, etc. In terms of pharmacotherapy, there are many options, including tricyclic antidepressants, duloxetine, gabapentin or pregabalin, and cyclobenzaprine as well as other similar medications to those listed. In this case, the patient might try to focus on nonpharmacologic measures and current topical products due to her chronic inflammatory bowel disease. Per her request I agreed to carefully build up the dose of Cymbalta further as she tolerates it. Continue gentle yoga as she found helpful. She may benefit from reading book written by Dr Leeroy [facility] addressing management strategies for patients with fibromyalgia using mindfulness approach Assessment & Plan (09/20/2020 9:27 AM EST): We discussed the diagnosis of fibromyalgia, its natural history, and treatment. Specifically, we discussed that treatment requires many interventions and recognition that we are often unable to get patients completely pain free. Management of fibromyalgia requires patient engagement to address any underlying depression, anxiety, or sleep disorder. Further, patients are encouraged to engage in regular physical activity. Some studies have suggested that Tino Chi is effective. Other physical activity may including water-based aerobics, etc. In terms of pharmacotherapy, there are many options, including tricyclic antidepressants, duloxetine, gabapentin or pregabalin, and cyclobenzaprine as well as other similar medications to those listed. In this case, the patient might try to focus on nonpharmacologic measures and current topical products due to her chronic inflammatory bowel disease. Per her request I agreed to carefully build up the dose of Cymbalta that she tolerates now. Continue gentle yoga as she found helpful. She may benefit from reading book written by Dr Leeroy Lagos [employer] [facility] addressing management strategies for patients with fibromyalgia using mindfulness approach Assessment & Plan (07/13/2020 4:29 PM EST): We discussed the diagnosis of fibromyalgia, its natural history, and treatment. Specifically, we discussed that treatment requires many interventions and recognition that we are often unable to get patients completely pain free. Management of fibromyalgia requires patient engagement to address any underlying depression, anxiety, or sleep disorder. Further, patients are encouraged to engage in regular physical activity. Some studies have suggested that Tino Chi is effective. Other physical activity may including water-based aerobics, etc. In terms of pharmacotherapy, there are many options, including tricyclic antidepressants, duloxetine, gabapentin or pregabalin, and cyclobenzaprine as well as other similar medications to those listed. In this case, the patient might try to focus on nonpharmacologic measures and current topical products due to her chronic inflammatory bowel disease. Due to progressive symptoms she agrees to carefully try low dose of duloxetine that appears less likely to interact with all other medications that she requires. She is provided with list of side effects to watch for and asked to call if any develop or with questions/problems. Assessment & Plan (03/16/2020 11:48 AM EDT): We discussed the diagnosis of fibromyalgia, its natural history, and treatment. Specifically, we discussed that treatment requires many interventions and recognition that we are often unable to get patients completely pain free. Management of fibromyalgia requires patient engagement to address any underlying depression, anxiety, or sleep disorder. Further, patients are encouraged to engage in regular physical activity. Some studies have suggested that Tino Chi is effective. Other physical activity may including water-based aerobics, etc. In terms of pharmacotherapy, there are many options, including tricyclic antidepressants, duloxetine, gabapentin or pregabalin, and cyclobenzaprine as well as other similar medications to those listed. In this case, the patient might try to focus on nonpharmacologic measures and current topical products due to her chronic inflammatory bowel disease. Assessment & Plan (12/25/2019 8:14 AM EDT): We discussed the diagnosis of fibromyalgia, its natural history, and treatment. Specifically, we discussed that treatment requires many interventions and recognition that we are often unable to get patients completely pain free. Management of fibromyalgia requires patient engagement to address any underlying depression, anxiety, or sleep disorder. Further, patients are encouraged to engage in regular physical activity. Some studies have suggested that Tino Chi is effective. Other physical activity may including water-based aerobics, etc. In terms of pharmacotherapy, there are many options, including tricyclic antidepressants, duloxetine, gabapentin or pregabalin, and cyclobenzaprine as well as other similar medications to those listed. In this case, the patient might try . Assessment & Plan (08/06/2019 8:40 AM EST): We discussed the diagnosis of fibromyalgia, its natural history, and treatment. Specifically, we discussed that treatment requires many interventions and recognition that we are often unable to get patients completely pain free. Management of fibromyalgia requires patient engagement to address any underlying depression, anxiety, or sleep disorder. Further, patients are encouraged to engage in regular physical activity. Some studies have suggested that Tino Chi is effective. Other physical activity may including water-based aerobics, etc. In terms of pharmacotherapy, there are many options, including tricyclic antidepressants, duloxetine, gabapentin or pregabalin, and cyclobenzaprine as well as other similar medications to those listed. In this case, the patient might try . Gastroesophageal reflux disease with esophagitis 08/09/2017 Assessment & Plan (01/28/2025 3:15 PM EDT): Avoid late, large, spicy meals. Keep headboard elevated at 45 angle for nighttime. Carefully continue 40 mg every morning. Assessment & Plan (08/04/2024 9:36 AM EST): Avoid late, large, spicy meals. Keep headboard elevated at 45 angle for nighttime. Assessment & Plan (03/31/2024 10:29 AM EDT): Avoid late, large, spicy meals. Keep headboard elevated at 45 angle for nighttime. Assessment & Plan (11/30/2023 8:03 AM EDT): Avoid late, large, spicy meals. Keep headboard elevated at 45 angle for nighttime. Assessment & Plan (08/10/2023 8:35 AM EST): Avoid late, large, spicy meals. Keep headboard elevated at 45 angle for nighttime. Carefully continue Protonix every evening. Assessment & Plan (09/26/2021 8:14 AM EST): Avoid late, large, spicy meals. Keep headboard elevated at 45 angle for nighttime. Assessment & Plan (05/30/2021 8:36 AM EDT): Avoid late, large, spicy meals. Keep headboard elevated at 45 angle for nighttime. Assessment & Plan (02/28/2021 10:21 AM EDT): Avoid late, large, spicy meals. Keep headboard elevated at 45 angle for nighttime. Assessment & Plan (2021 4:49 PM EDT): Avoid late, large, spicy meals. Keep headboard elevated at 45 angle for nighttime. Assessment & Plan (11/22/2020 9:04 AM EDT): Avoid late, large, spicy meals. Keep headboard elevated at 45 angle for nighttime. Assessment & Plan (09/20/2020 9:02 AM EST): Avoid late, large, spicy meals. Keep headboard elevated at 45 angle for nighttime. Assessment & Plan (07/12/2020 9:14 AM EST): Avoid late, large, spicy meals. Keep headboard elevated at 45 angle for nighttime. Resolved Problems Problem Noted Date Diagnosed Date Resolved Date Class 1 obesity due to exces s calories with serious comorbidity and body mass index (BMI) of 34.0 to 34.9 in adult 04/05/2024 08/04/2024 Assessment & Plan (04/05/2024 8:35 PM EDT): Continue diligent portion control particularly in view of gaining 8 pounds from 180 on 11/30/2023 up to 188 today. Limit concentrated sugars, saturated fats and calories in the diet. Keep well-hydrated. If unable to achieve expected goal consider formal dietary/nutritional support. Class 1 obesity due to exces s calories without serious comorbidity with body mass index (BMI) of 34.0 to 34.9 in adult 12/12/202106/2023 Assessment & Plan (04/10/2022 11:14 AM EDT): Portion control. Limit concentrated sugars, saturated fats and calories in the diet. Keep well-hydrated. If unable to achieve expected goal consider formal dietary/nutritional support. Assessment & Plan (12/12/2021 12:04 PM EDT): Portion control. Limit concentrated sugars, saturated fats and calories in the diet. Keep well-hydrated. If unable to achieve expected goal consider formal dietary/nutritional support. Class 1 obesity due to exces s calories without serious comorbidity with body mass index (BMI) of 32.0 to 32.9 in adult 03/12/202112/2021 Assessment & Plan (09/26/2021 8:15 AM EST): Portion control. Limit concentrated sugars, saturated fats and calories in the diet. Keep well-hydrated. If unable to achieve expected goal consider formal dietary/nutritional support. Assessment & Plan (05/30/2021 8:36 AM EDT): Portion control. Limit concentrated sugars, saturated fats and calories in the diet. Keep well-hydrated. If unable to achieve expected goal consider formal dietary/nutritional support. Assessment & Plan (03/12/2021 3:35 PM EDT): Portion control. Limit concentrated sugars, saturated fats and calories in the diet. Keep well-hydrated. If unable to achieve expected goal consider formal dietary/nutritional support. Strep throat 08/06/2019 02/26/2024 Assessment & Plan (08/06/2019 8:41 AM EST): Tail end of it - only 1 moreday of PCN to take Thrombopenia 06/06/2018 12/25/2019 Assessment & Plan (08/06/2019 8:42 AM EST): Monitor periodically-no additional worrisome abnormalities detected by rotary cutter feeder/oncologist-Dr. Do during summer 2017 consultation-per patient report Encounters Date Type Department Care Team Description 04/10/2025 Refill [facility] [address] [place] [address] [place] [id number] Tory Cordova MD Medication Refill 01/29/2025 Orders Only [facility] [place] [id number] ProviderKrystyna MD 01/28/2025 3:00 PM EDT Office Visit [facility] [address] [place] [address] [place] [id number] Tory Cordova MD Inflammatory polyarthritis (Primary Dx); Primary osteoarthritis involving multiple joints; Fibromyalgia; Raynaud's disease without gangrene; Status post total colectomy; Migraine without aura and without status migrainosus, not intractable; Gastroesophageal reflux disease with esophagitis without hemorrhage; Type 2 diabetes mellitus without complication, without long-term current use of insulin; Class 2 severe obesity due to excess calories with serious comorbidity and body mass index (BMI) of 35.0 to 35.9 in adult; Hypomagnesemia; On SSRI therapy 01/15/2025 Refill [facility] [address] [place] [address] [place] [id number] Tory Cordova MD Medication Refill from Last 3 Months Immunizations Immunization Administration Dates Next Due COVID-19 (Pre-07/02) Pfizer Vaccine, mRNA, PF ,12/20/2020 Influenza Quadrivalent Preservative Free IM 05/12 Family History Medical History Relation Comments Breast cancer Maternal Cousin 1 Colon cancer Maternal Cousin 2 Breast cancer Maternal Grandmother Throat cancer Mother Prostate cancer Paternal Grandfather Relation Status Comments Maternal Cousin 1 Maternal Cousin 2 Maternal Grandmother Mother Paternal Grandfather Social History Tobacco Use Types Packs/Day Years Used Date Smoking Tobacco: Former Cigarettes Smokeless Tobacco: Never Tobacco Cessation:Counseling Given: Not Answered Alcohol Use Standard Drinks/Week Comments Not Currently 0 (1 standard drink = 0.6 oz pur e alcohol) 1 drink monthly Education Answer Date Recorded Are you interested in more education? Not on albina e 01/05/2023 Are you concerned about learning? Not on file 01/05/2023 No 01/05/2023 No 01/05/2023 Digital Access Answer Date Recorded No 02/03/2023 No 02/03/2023 Reliable internet access at home? Not on file 02/03/2023 Device with a working camera? Not on file Comments No Sex and Gender Information Value Date Recorded Sex Assigned at Female 11/19/2020 1:07 PM EST Legal Sex Female 9:47 PM EDT Gender Identity Female 11/19/2020 1:07 PM EST Sexual Orientation Straight 11/19/2020 1: 07 PM EST Last Filed Vital Signs Vital Sign Reading Time Taken Comments Blood Pressure 122/74 01/28/2025 2:44 PM EDT Pulse 84 01/28/2025 2:44 PM EDT Temperature 37.1 C (98.8 F) 11/22/2020 8:44 AM EDT Respiratory Rate - - Oxygen Saturation 97% 03/31/2024 9:54 AM EDT Inhaled Oxygen Concentration - - Weight 88 kg (194 lb) 01/28/2025 2:44 PM EDT wit h shoes Height 157.5 cm (5' 2.01 ) 01/28/2025 2:44 PM ED T Body Mass Index 35.47 01/28/2025 2:44 PM EDT Plan of Treatment Upcoming Encounters Date Type Department Care Team (Late st Contact Info) Description 08/10/2025 8:30 AM EST Office Visit [facility] [address] [place] [address] Tory Cordova MD [address] [facility], [address] [place] [address] [email or web address] Maintenance Due Date Last Done Comments Adult Td,Tdap Booster 1961 DEPRESSION SCREENING 1973 SMOKING Hx and SMOKELESS TOBACCO SCREENING 1974 HEPATITIS C SCREENING 1979 HIV ONE-TIME SCREENING (18-65 YEARS) 1979 LIPID PANEL 1979 MAMMOGRAM 2001 PNEUMOCOCCAL VACCINES (50+ years) (2 of 2 - PCV) 01/02/2018 01/02/2017 HEMOGLOBIN A1C 12/22/2020 06/23/2020 PAP SMEAR 11/30/2023 11/29/2020, 11/12/2019 DIABETIC EYE EXAM 01/28/2025 URINE MICROALBUMIN/CREATININE RATIO 01/28/2025 BLOOD PRESSURE 07/31/2025 01/28/2025 ZOSTER VACCINES Completed 08/16/2020, 05/26/2020 COVID-19 VACCINE Completed 05/29/2024, , 11/19/2022, Additional history exists RSV VACCINE Completed 05/29/2024, 10/18/2023 HEPATITIS A VACCINES Aged Out No long er eligible based on patient's age to complete this topic HIB VACCINES Aged Out No longer eligi ble based on patient's age to complete this topic MENINGOCOCCAL VACCINES (ACWY) Aged Out No longer eligible based on patient's age to complete this topic MENINGOCOCCAL VACCINES (B) Aged Out N o longer eligible based on patient's age to complete this topic Medical Devices Not on file Procedures Procedure Name Priority Date/Time Associated Diagnosis Comments PAP TEST Routine 11/29/2020 12:00 AM EDT OUTSIDE HEMOGLOBIN A1C Routine 06/23/2020 from Last 3 Months or Most Recently Relevant to Health Maintenance Results * Pap Smear (11/29/2020 12:00 AM EDT) 11/29/2020 11/30/2020 9:3 0 AM EDT Narrative SEE NARRATIVE - 12/03/2020 10:23 [place] [address] Control Clerk: Shikha Girard MD REGULATOR PIN INSERTER Cytology Report FINAL DIAGNOSIS A. PAP SMEAR (SUREPATH) CE: SPECIMEN ADEQUACY: Satisfactory for evaluation; transformation zone present. INTERPRETATION: NEGATIVE FOR INTRAEPITHELIAL LESION OR MALIGNANCY. Electronically Signed Out By: OSBALDO Olivo(ASCP) The Pap test is a screening test primarily for squamous cancers and precursors and has associated false-negative and false-positive results. New technologies such as liquid-based preparations may decrease but will not eliminate all false-negative results. Regular sampling and follow-up of unexplained clinical signs and symptoms are recommended to minimize false negative results. PROCEDURES/ADDENDA HPV Testing (Requested) Ordered Date: 11/30/2020 A. PAP SMEAR (SUREPATH) CE: Human Papilloma Virus Test Negative for high-risk human papillomavirus types 16, 18, 45 and the Other high risk probe set (Includes 31, 33, 35, 39, 51, 52, 56, 58, 59, 66, 68) by Circular Onclarity HR-HPV analysis. Clinical correlation is advised. This HPV test was performed at [facility], [address] [place] [address]. This test has been FDA approved for SurePath cervical cytology specimens. The accuracy and precision of this test for all other specimen sources has been verified in the Cytopathology Laboratory of the [facility] and has not been cleared or approved by the U.S. Food and Drug Administration. Clinical correlation is advised. CLINICAL HISTORY Date of Last Menstrual Period: Not Provided Menstrual History: Post Menopausal Other Clinical Conditions: Screening Pap SPECIMEN SOURCE A: PAP SMEAR (SUREPATH) CE Patient Name: ARCADIO HANKINS : 1960 (Age: 60) Sex: F [facility] Date of Collection: 11/29/2020 Date of Reported: 12/02/2020 14:55 Results to: Leticia Gonzalez MD us Leticia Gonzalez MD CYTOLOGY ORDERABLES Edited Result - Final SEE NARRATIVE * Outside HbA1c (06/23/2020) us Tory Cordova MD LAB BLOOD ORDERABLES Fin al Result from Last 3 Months or Most Recently Relevant to Health Maintenance Insurance [facility] [employer] [facility] CONNECTOR[facility] DIRECT [facility]CTOR[facility]ARE DIRECT [facility] CONNECTOR[facility]ARE DIRECT [facility] CONNECTOR[facility]ARE DIRECT Care Teams 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 It is not the complete legal health record.[facility]
[2025-04-13 09:09] VITALS: BMI 32.2
--- NOTE | 2025-04-13 09:09 | A.OFFVIS_ITS ---
VS Expanded 04/13/25 09:09 04/13/25 09:20 Height 5 ft 4 in 5 ft 4 in Weight 187 lb 9.814 oz 188 lb BMI 32.2 32.3 Intake Visit Reasons: t2dm Allergies omeprazole (OMEPRAZOLE) Allergy (Severe, Verified 01/19/25 08:44) N/V tramadol (From Ultram) Allergy (Intermediate, Verified 01/19/25 08:44) ITCHING vaccine adjuvant system, AS01B lipo (From Shingrix (PF)) Allergy (Unknown, Verified 03/19/25 14:13) Unknown varicella-zoster virus glycoprotein (From Shingrix (PF)) Allergy (Unknown, Verified 03/19/25 14:13) Unknown ibuprofen (From Motrin) Allergy (Verified 01/19/25 08:44) Unknown IVP Dye Allergy (Unknown, Uncoded 03/19/25 14:13) Unknown Z pack Allergy (Unknown, Uncoded 03/19/25 14:13) Unknown Nutrition Presentation Details: Pt presents for MNT f/u for T2DM Pt reports doing well, having reduced appetite since starting mounjaro Pt lives with an ostomy , reports doing well typical meal intake : B: bagel and sugar free juice or protein drink L protein yogurt d: chicken , instant potato/ or rice and green beans (chicken snack cashews or fruit or yogurt or crackers and cheese food frequency milk : 1/d fruits: 1-2 fruits (applesauce/cooked) fish: 0-1/wk physical activity: daily activites at work,walks > 30 minutes/d BS Monitoring Most Recent Diabetes Results: Creatinine, (0.5-1.4) 0.98 mg/dL 03/09/25 BUN, (9-16) 15 mg/dL 03/09/25 Sodium, (135-145) 142 mmol/L 03/09/25 Potassium, (3.3-5.1) 4.0 mmol/L 03/09/25 Chloride, (96-108) 107 mmol/L 03/09/25 Carbon Dioxide, (22-29) 28 mmol/L 03/09/25 Calcium, (8.4-10.2) 9.5 mg/dL 03/09/25 AST, (5-31) 45 U/L H 03/09/25 ALT, (0-31) 50 U/L H 03/09/25 Total Protein, (6.5-8.0) 7.5 g/dL 03/09/25 Albumin, (3.5-5.0) 4.4 g/dL 03/09/25 BDW-Ekrajfl-Hf.Jeor Equation Height: 5 ft 4 in Weight: 188 lb Resting Metabolic Rate: 1392.02 Calculated Activity Level: Sedentary Calories Needed to Maintain Weight: 1670.42 [facility] Medical History (Updated 03/19/25 @ 14:15 by Ja Mota [facility]) Peripheral neuropathy Cervical disc disease Prediabetes Hypertriglyceridemia Elevated blood pressure reading Bilateral foot pain Incisional hernia Parastomal hernia Subcutaneous abscess Seborrheic dermatitis Migraines Fatty liver disease, nonalcoholic Sinusitis Ileostomy in place Dizziness Recurrent vomiting Gastroparesis Intra-abdominal abscess Intra-abdominal abscess Fever of unknown origin Leukocytosis Shock Perforated viscus COVID-19 vaccine series completed Environmental allergies PONV (postoperative nausea and vomiting) Thoracic disc herniation Herniated cervical disc Back pain Fibromyalgia Hx of migraines Crohn's disease Iron deficiency anemia Carpal tunnel syndrome Arthritis Vitamin D deficiency GERD (gastroesophageal reflux disease) Surgical History S/P colectomy Status post colostomy Hx of shoulder surgery History of surgery Hx of fusion of cervical spine Hx of cholecystectomy History of tonsillectomy History of esophagogastroduodenoscopy (EGD) History of tubal ligation Hx of colonoscopy Family History Paternal Grandmother High blood pressure High cholesterol Mother Throat cancer Alcoholism Alcohol abuse Maternal Grandmother Breast cancer Paternal Grandfather Prostate cancer Family/Other High blood pressure Father Alcohol abuse Daughter FH: mental illness Social History Household Members: Spouse and Family Household Members Other:: [place] Housing: House Are you a primary home care administrator to a significant other at home: No Do you presently have visiting nurse or other home services: No Unable to assess alcohol history related to: Unknown Alcohol intake: former Comment: restraints Patient Tobacco Use Status: Former Tobacco user Tobacco use type: Cigarette e-Cigarette/Vaping Use: Never Used Second Hand Smoke Exposure: No Advance Directives Date on File: 08/08/22 service: No Current occupational status: employed 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 @ [employer] Cognitive needs: No Hearing needs: No Vision needs: No Assessment & Plan Assessment & Plan (1) Prediabetes: Comment: with hypertriglyceridemia Code(s): R73.03 - Prediabetes Category: Medical Plan: Wt: 88 Kg ( 06/03 ), 90kg (12/02), 89 kg (01/31), 85 kg (05/04 on Mounjaro) Est kcal needs as per MSJ: 1700 (40% carb, 30% protein/fat) Est fluid needs as per 25-30 ml/d: 2500 Est prot per day as per 1 g/kg bw: 85 Recommend fiber intake : 8-10 g per day and gradually increase to 25-28 g per day for women and 35-38 g for men or as tolerated Recommend sodium intake per day : less than 2300 mg Educated patient on: ( R = reviewed V = verbalizes understanding N/R = needs review N/A = not applicable * Food sources of carbohydrate, adequate serving sizes and its role in various health conditions: R * Differences between complex carbohydrates a simple carbohydrates, role of fiber in diet: R V N/R * Lean protein sources of foods: R * Differences between types of fats and role in diet (mono on saturated fat fatty acids, saturated fatty acids, trans fats): R * Food sources of sodium in salt and healthy modifications for heart health in kidney health: R V R/V * Vitamins and minerals: R V N/R * Healthy plate method concept: R V N/R * Physical activity: Benefits a precaution: R * Dietary prevention of Hyperglycemia: R Patient Instructions: Include calcium rich foods (tofu, orange, sardines) Coding Level of Care Code Nutr Indiv Subseq ([id number]) Diagnoses Prediabetes R73.03 Time Spent (min) 24
[2025-04-13 09:20] VITALS: BMI 32.3
== END 2025-04-13 09:32 | disposition home or self-care (01) ==
LOC: HO.ENCR 08:39
PROVIDERS: PCP Family Medicine; Visit Provider Dietitian, Registered
DX: R73.03 Prediabetes (principal)

== ENCOUNTER → 2025-04-13 08:38 | Outpatient (BNVA) | payer OTHER, SELFPAY | PROVIDERS: PCP Family Medicine; Visit Provider Dietitian, Registered | DX: R73.03 Prediabetes (principal) | CPT/HCPCS: 97803 ==

== ENCOUNTER 2025-04-16 14:19 | Outpatient (AMB) | payer OTHER, SELFPAY ==
--- OUTSIDE RECORDS SUMMARY | 2025-04-16 14:21 | XMS_ITS | Patient Health Record ---
Author Organization Shamar Do III, MD Address [address] [place] [address] [address] [place] [address] Care Team Providers Care Health Care Consultant Name Role Phone Manolo Bonilla Primary Care Provider Unavailab Shamar Munguia Unavailable [phone] Allergies Allergen (clinical drug ingredient) Drug/Non Drug [...] Problem Status W/U Status Risk Notes Problem 275470144 Thrombocytopenia (D69.6) Active confirmed Her platelet count has returned to normal and she has had no bleeding or clotting. Problem 449032836 Obesity (BMI 30-39.9) (E66.9) Active confirmed Her weight has been volatile. Her body mass index is now 32.7. We have discussed lifestyle modification diet and nutrition at length. Problem 96105027 Essential hypertension (I10) Active confirmed Her blood pressure is currently normal and no change in her regimen is necessary. The value is 122/82. I recommended weight loss and sodium restriction. Problem 58468990 Degenerative dis c disease, cervical (M50.30) Active confirmed Problem 020536436 History of cholecystectomy (Z90.49) Active confirmed Problem 96508127 Leukopenia, unspecified type (D72.819) Active confirmed The value is now in the normal range. She has had no recent infections. Problem 49447653 Normochromic normocytic anemia (D64.9) Active confirmed The hematocrit and mean cell volume are now normal. Problem 943732870 HPV (human papilloma virus) infection (B97.7) Active confirmed The HPV DN A was found to thousand 12, but not in 2015. I strongly recommended she continue routine and regular visits with STRING CUTTER. Problem 420273892 H/O tubal ligati on (Z98.51) Active confirmed Vital Signs Heart Rate 80 /min 04/28/2024 Temperature 99.9 degrees Fahrenheit 04/28/2024 Blood pressure diastolic 91 mm Hg 04/28/2024 Height 62 in 04/28/2024 Blood pressure systolic 149 mm Hg 04/28/2024 Weight 195 lbs 04/28/2024 BMI 35.66 kg/m2 04/28/2024 Encounters Encounter Location Date Provider Diagnosis Shamar Do III, MD [address] [place] [address] [place] [phone] 04/28/2024 Shamar Do Leukopenia, unspecif ied type [...] Details Provider Name:Shamar Do, 04/29/2025 09:30:00 AM, [address] [place] [address] [address], [place], [address], Insurance Providers Payer Name Payer Address Payer Phone Subscriber Number Group Number Insured Name Patient Relationship to Insured Coverage Start Date Coverage End Date [facility] [address] [place] [phone] [id number] Ju Hankins Self - patient is the [...] 1994 tonsillectomy 1979 Hospitalization History Reason Date(Month/Year) [facility] May 2017
--- OUTSIDE RECORDS SUMMARY | 2025-04-16 14:21 | XMS_ITS | Clinical Summary ---
Author Organization [facility] Address [address] [address] Phone Care Team Providers Care Financial Aid Director Name Role Phone Manolo Bonilla MD Primary Care Provider Allergies Active Allergy Reactions Criticality Noted Date Comments Ibuprofen Diarrhea,Weight Gain Low 08/01/2021 Nsaids (Non-Steroidal Anti-Inflammatory Drug) 02/07/2023 Cant take due to stomach Omeprazole Nausea and/or Vomiting 08/09/2017 Tramadol Itching 08/09/2017 Medications multivitamin-cloth examiner als-lutein (CENTRUM SILVER) Tab Take 1 [...] as needed and tolerated. Consider checkup with suit maker versus inspector final assembly conveyor line if not better. On SSRI therapy 09/20/2020 [...] and dietary modifications as instructed by treating bridge operator. Assessment & Plan (12/17/2021 2:48 PM EDT): Continue treatment with mesalamine (Apriso) and dietary modifications as instructed by treating bridge operator. Assessment & Plan (11/22/2020 9:04 AM EDT): Continue treatment with mesalamine (Apriso) and dietary modifications as instructed by treating bridge operator. Assessment & Plan (09/20/2020 9:03 AM EST): Continue treatment with mesalamine (Apriso) and dietary modifications as instructed by treating bridge operator. Assessment & Plan (07/12/2020 9:14 AM EST): Continue treatment with mesalamine (Apriso) and dietary modifications as instructed by treating bridge operator. Assessment & Plan (03/16/2020 11:49 AM EDT): Continue treatment with mesalamine (Apriso) and dietary modifications as instructed by treating bridge operator. Assessment & Plan (12/25/2019 9:04 AM EDT): Continue treatment with mesalamine (Apriso) and dietary modifications as instructed by treating bridge operator. Trochanteric bursitis 02/13/2019 Chronic gastritis without bleeding 10/10/2018 Assessment & Plan (03/16/2020 11:49 AM EDT): New close follow-up with bridge operator exactly as scheduled. Avoid late, large, spicy [...] and asks for confirmatory letter to her [employer]'s HR to accommodate request for OSHA approved [...] and asks for confirmatory letter to her [employer]'s HR to accommodate request for OSHA approved [...] and asks for confirmatory letter to her [employer]'s [employer] to accommodate request for OSHA approved stool. [...] Monitor periodically-no additional worrisome abnormalities detected by sale professional digital marketing/oncologist-Dr. Do during summer 2017 consultation-per patient report Encounters Date Type Department Care Team Description 04/10/2025 Refill [facility] Rheumatology [address] [place] [address] [place] [id number] Tory Cordova MD Medication Refill 01/29/2025 Orders Only [facility] [place] [address] ProviderKrystyna MD 01/28/2025 3:00 PM EDT Office Visit [facility] Rheumatology [address] [place] [address] [place] [id number] Tory Cordova MD Inflammatory polyarthritis (Primary Dx); [...] adult; Hypomagnesemia; On SSRI therapy 01/15/2025 Refill [facility] Rheumatology [address] [place] [address] [place] [address] Tory Cordova MD Medication Refill from Last [...] Description 08/10/2025 8:30 AM EST Office Visit [facility] Rheumatology [address] [place] [address] Tory Cordova MD [address] [facility], [address] [place] [address] [email or web address] Health Maintenance Due Date Last Done Comments [...] SEE NARRATIVE - 12/03/2020 10:23 [place] [address] [address] Grade Reading Teacher: Shikha Girard MD PIANO PROFESSOR Cytology Report FINAL DIAGNOSIS A. PAP SMEAR [...] 52, 56, 58, 59, 66, 68) by [employer] On[employer] HR-HPV analysis. Clinical correlation is advised. This HPV test was performed at [facility], [address] [place] [address]. This test has been FDA approved for [employer]Path cervical cytology specimens. The accuracy and precision of this test for all other specimen sources has been verified in the Cytopathology Laboratory of the [facility] and has not been cleared or approved by the U.S. Food and Drug Administration. Clinical correlation is advised. CLINICAL HISTORY Date of Last Menstrual Period: Not Provided Menstrual History: Post Menopausal Other Clinical Conditions: Screening Pap SPECIMEN SOURCE A: PAP SMEAR (SUREPATH) CE Patient Name: ARCADIO HANKINS : 1960 (Age: 60) Sex: F [facility] Date of Collection: 11/29/2020 Date of Reported: 12/02/2020 14:55 Results to: Leticia Gonzalez MD us Leticia Gonzalez MD CYTOLOGY ORDERABLES Edited Result - Final SEE NARRATIVE * Outside HbA1c (06/23/2020) us Tory Cordova MD LAB BLOOD ORDERABLES Fin al Result from Last 3 Months or Most Recently Relevant to Health Maintenance Insurance [facility] Cream.HRORCARE DIRECT [facility] CONNECTORCARE DIRECT [facility]CTOR[facility] DIRECT [facility] CONNE[facility] DIRECT [facility] DIRECT Care Teams Financial Aid Director Relationship Specialty Start Date End Date Manolo Bonilla MD [address] [place] [address] PCP - General Family Medicine 08/10/23 Additional Source Comments The information contained in this document represents components of the legal health record. It is not the complete legal health record.[facility]
--- OUTSIDE RECORDS SUMMARY | 2025-04-16 14:22 | XMS_ITS | Clinical Summary ---
Author Organization [address] [facility] Address [address] [place] [address] Phone Care Team Providers Care Ios Architect Name Role Phone Manolo Bonilla MD Primary Care Provider [phone] Allergies Active Allergy Reactions Criticality Noted Date Comments Ibuprofen 06/20/2024 Omeprazole 06/20/2024 Tramadol 06/20/2024 Medications No known medications Active Problems Problem Noted Date Diagnosed Date PONV (postoperative nausea and vomiting) 024 Arthritis 06/20/2024 Bilateral foot pain 06/20/2024 Carpal tunnel syndrome 06/20/2024 Crohn disease ([facility] V24, [facility] V28) 024 Dizziness 06/20/2024 Elevated blood pressure reading 06/20/2024 Fatty liver disease, nonalcoholic 06/20/2024 Fever of unknown origin 06/20/2024 Fibromyalgia 06/20/2024 Gastroparesis 06/20/2024 Hypertriglyceridemia 06/20/[address] ([facility] V24, [facility] V28) Intra-abdominal abscess ([facility] V24, [facility] V2 8) 06/20/2024 Iron deficiency anemia 06/20/2024 Leukocytosis 06/20/2024 Migraines 06/20/2024 Pain in right foot 06/20/2024 Parastomal hernia 06/20/2024 Perforated viscus 06/20/2024 Prediabetes 06/20/2024 Recurrent vomiting 06/20/2024 Seborrheic dermatitis 06/20/2024 Shock ([facility] V24, [facility] V28) 06/20/2024 Sinusitis 06/20/2024 Subcutaneous abscess 06/20/2024 Encounters Date Type Department Care Team Description 02/09/2025 8:15 AM EDT Office Visit Orthopedic Surgery [facility] [address] [id number] Matthew Hall DPM Metatarsalgia of right foot [...] AM EDT Office Visit Orthopedic Surgery - [place] [address] [phone] Matthew Hall DPM [address] [address] Health Maintenance Due Date Last Done Comments [...] patient's age to complete this topic Insurance [facility] PUBLIC PLANS Care Teams Ios Architect Relationship Specialty Start Date End Date Manolo Bonilla MD NPI: [id number] [place] [address] Dr Castaneda [place] PCP - General 05/05/24
--- OUTSIDE RECORDS SUMMARY | 2025-04-16 14:22 | XMS_ITS | Patient Health Record ---
Author Organization [facility] Address [address] [place] [address] Care Team Providers Care Pump Machine Operator Name Role Phone Aren (RETIRED) Deandre SAUER Primary Care Provide r Unavailable Ramu Peralta Jr Unavailable [phone] MARIANO LANDIS Unavailable Unavailable Allergies Allergen (clinical [...] Problem Status W/U Status Risk Notes Problem [id number] Gastro-esophagea l reflux disease without esophagitis (K21.9) Active confirmed Problem 277034016 Nausea (R11.0) Active confirmed Problem Gastroesophageal reflux disease (K21.9) Active confirmed Problem [id number] Crohns disease o f both small and large intestine without complication (K50.80) Active confirmed Problem [id number] Gastroesophageal reflux disease without esophagitis (K21.9) Active confirmed Problem 09346042 Colitis (K52.9) Active confirmed Problem 20303421 Diarrhea, unspecified type (R19.7) Active confirmed Problem 404356103 Irritable bowel syndrome with constipation (K58.1) Active confirmed Problem 41711480 Crohn's disease of colon without complication (K50.10) [...] Coverage End Date [employer] [place] [address] [address] [place] [address] [id number] Ju Pereyra Self - patient is the insured Medical (General) History Medical History History ICD Code esophageal reflux low vitamin D level arthritis carpal tunnel syndrome Denies OH,DM,CVA,Lung disease,renal dise ase iron deficiency anemia Crohn's colitis, last colonoscopy 2018, no active disease. Surgical History Surgery Date(Month/Year) neck surgery cholecystectomy tubal ligation several orthopedic surgeries
--- NOTE | 2025-04-16 14:43 | A.OFFVIS_ITS ---
Vital Signs 04/16/25 14:43 Height 5 ft 4 in Intake Visit Reasons: 6m Allergies omeprazole (OMEPRAZOLE) Allergy (Severe, Verified 04/16/25 15:12) N/V tramadol (From Ultram) Allergy (Intermediate, Verified 04/16/25 15:12) ITCHING vaccine adjuvant system, AS01B lipo (From Shingrix (PF)) Allergy (Unknown, Verified 04/16/25 15:12) Unknown varicella-zoster virus glycoprotein (From Shingrix (PF)) Allergy (Unknown, Verified 04/16/25 15:12) Unknown ibuprofen (From Motrin) Allergy (Verified 04/16/25 15:12) Unknown IVP Dye Allergy (Unknown, Uncoded 04/16/25 15:12) Unknown Z pack Allergy (Unknown, Uncoded 04/16/25 15:12) Unknown Medication List - Last Reconciled 04/16/25 by Sunni Almendarez, PRESS MANAGER blood pressure monitor Automatic, Digital. Dx: I10. Daily As directed, 999 days/lifetime cetirizine (Zyrtec) 10 mg PO DAILY duloxetine 30 mg PO BID 90 days fexofenadine (Shaye Allergy) 180 mg PO DAILY fremanezumab-vfrm (Ajovy Syringe) 225 mg subcut Q30D magnesium oxide 800 mg PO BID metformin 500 mg PO DAILY methocarbamol 750 mg PO TID infabylu-uzg-abzz-FA-vit K-lut 8 mg iron-400 mcg-50 mcg (Centrum Silver Women) 1 tab PO DAILY ondansetron 1 tab PO DAILY PRN pantoprazole 40 mg PO DAILY rizatriptan 1 tab PO DAILY PRN tirzepatide (Mounjaro) 2.5 mg (0.5 mL) subcut QWEEK 28 days HPI Comments Details: She was doing okay. 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 She was busy at work and spent a lot of time on her feet. Neuropathic pain under control with duloxetine. Occasionally may get stabbing pain in feet and legs. She was still getting some cramps in legs and toes may curl up, but not as often and less severe than before. Some intermittent numbness and tingling to legs. Balance off at times, no falls. Migraines were controlled with Ajovy. Rizatriptan as needed helped within 30 minutes. Previously was getting 10-15 migraines/month. Some neck pain and occasional pain down right arm, no numbness or tingling. Fibromyalgia pains and sensitive all over body, following with rheumatology. Had low magnesium levels. Had colectomy for toxic colon in 07/2022. Migraines better after reducing caffeine intake. Alcohol triggers migraines. Chronic sinus and allergy problems, not relieved by Zyrtec, Claritin, and Flonase. Had allergy testing and found to have multiple severe allergies. Was using allergy drops until she got sick and was without them for 1 month in the hospital. Sumatriptan worked well in the past but stopped working. Stopped Emgality in 01/2020 as she thought it was not working. Vision changing. Occasional sinus headache from allergies. Trouble with sleep maintenance for many years but getting better. Migraines are typically throbbing headaches with photophobia, sonophobia, and nausea. LBP is better, acts up briefly. Left hand pain and numbness. Sometimes loses balance if she trips. Her foot has not healed well. [facility] Medical History (Updated 04/16/25 @ 14:49 by Sunni Almendarez CNP) Peripheral neuropathy Cervical disc disease Prediabetes Hypertriglyceridemia Elevated blood pressure reading Bilateral foot pain Incisional hernia Parastomal hernia Subcutaneous abscess Seborrheic dermatitis Migraines Fatty liver disease, nonalcoholic Sinusitis Ileostomy in place Dizziness Recurrent vomiting Gastroparesis Intra-abdominal abscess Intra-abdominal abscess Fever of unknown origin Leukocytosis Shock Perforated viscus COVID-19 vaccine series completed Environmental allergies PONV (postoperative nausea and vomiting) Thoracic disc herniation Herniated cervical disc Back pain Fibromyalgia Hx of migraines Crohn's disease Iron deficiency anemia Carpal tunnel syndrome Arthritis Vitamin D deficiency GERD (gastroesophageal reflux disease) Surgical History S/P colectomy Status post colostomy Hx of shoulder surgery History of surgery Hx of fusion of cervical spine Hx of cholecystectomy History of tonsillectomy History of esophagogastroduodenoscopy (EGD) History of tubal ligation Hx of colonoscopy Family History Paternal Grandmother High blood pressure High cholesterol Mother Throat cancer Alcoholism Alcohol abuse Maternal Grandmother Breast cancer Paternal Grandfather Prostate cancer Family/Other High blood pressure Father Alcohol abuse Daughter FH: mental illness Social History Household Members: Spouse and Family Household Members Other:: [place] Housing: House Are you a primary animal care worker to a significant other at home: No Do you presently have visiting nurse or other home services: No Unable to assess alcohol history related to: Unknown Alcohol intake: former Comment: restraints Patient Tobacco Use Status: Former Tobacco user Tobacco use type: Cigarette e-Cigarette/Vaping Use: Never Used Second Hand Smoke Exposure: No Advance Directives Date on File: 08/08/22 service: No Current occupational status: employed 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 @ [employer] Cognitive needs: No Hearing needs: No Vision needs: No Review of Systems Const Denies chills, Denies daytime sleepiness, Denies difficulty sleeping, Denies fatigue, Denies fever(s), Denies frequent falls, Reports headache(s), Denies increased appetite, Denies poor appetite, Denies snoring, Denies weakness, De nies weight gain and Denies weight loss Eyes Denies loss of vision ENT Denies vertigo, Denies dizziness, Reports headache(s) and Reports neck pain Card Denies chest pain at rest, Denies chest pain with activity, Denies syncope, Denies leg edema, Denies palpitations, Denies dyspnea and Denies dyspnea on exertion Resp Denies cough, Denies dyspnea, Denies dyspnea on exertion and Denies snoring GI Denies abdominal pain, Denies constipation, Denies heartburn, Denies diarrhea and Denies nausea Denies urinary frequency, Denies urinary incontinence and Denies urinary urgency Musc Denies abnormal gait, Reports back pain, Denies myalgias, Denies arthralgias, Reports neck pain, Reports numbness and Reports tingling Neuro Denies abnormal gait, Denies vertigo, Denies dizziness, Denies syncope, Denies frequent falls, Reports headache(s), Denies lack of coordination, Denies loss of vision, Denies memory loss, Reports numbness, Denies Other visual disturbances, Denies restless legs, Denies seizure-like activity, Reports tingling, Denies paresthesias, Denies tremor(s) and Denies weakness Psych Denies anxiety, Denies depression, Denies auditory hallucinations, Denies memory loss and Denies visual hallucinations Endo Denies fatigue and Denies palpitations Physical Exam Const Other: General Appearance:? normal, in no acute distress. Heart:? S1, S2 normal, no murmurs. Lungs:? clear anteriorly and posteriorly. Musculoskeletal:? normal. Extremities:? no edema. Psych:? alert, oriented, cognitive function intact, cooperative with exam. Neuro Other: Abnormal Neurological Findings:?right foot dorsiflexion weakness from tendon rupture. Decreased pinprick to midtarsal.? Mental Status: alert and oriented X 3. Normal attention, orientation, memory, and affect. Cranial Nerves: Pupils are equal, round, and reactive to light. External ocular muscles are intact. Visual sweet are full, no ptosis. Face is symmetrical, no facial weakness or droop. Facial sensations are normal. Tongue protrudes in midline. Palate elevates symmetrically. Shoulder shrugging is normal Motor Examination: As above. Sensory Exam: As above. Coordination: No ataxia. No titubation. Gait Exam: Within normal limits. Cerebellar Signs: Aihxom-ic-qtjy is okay. Extrapyramidal System: No tremor, rigidity with normal facial expressions. No bradykinesia. No bradyphrenia. Normal arm swing and posture. No propulsion or retropulsion. Speech: Normal. No dysphasia or dysarthria. Results Reviewed Results Reviewed: Laboratory Tests 12/22/24 03/09/25 10:14 11:14 WBC 7.3 8.5 RBC 4.70 4.93 Hgb 15.3 15.6 Hct 43.9 45.5 MCV 93.4 92.3 MCH 32.6 31.6 MCHC 34.9 34.3 RDW 12.0 12.6 Plt Count 239 249 MPV 10.3 10.3 Immature Gran % (Auto) 0.3 0.2 Neut % (Auto) 54.8 60.7 Lymph % (Auto) 35.9 31.2 Spalding % (Auto) 7.7 6.5 Eos % (Auto) 0.8 0.9 Baso % (Auto) 0.5 0.5 Lymph # (Auto) 2.6 2.7 Spalding # (Auto) 0.6 0.6 Eos # (Auto) 0.1 0.1 Baso # (Auto) 0.0 0.0 Abs Immat Gran (auto) 0.02 0.02 Absolute Neuts (auto) 4.0 5.2 Absolute Nucleated RBC 0.000 0.000 Nucleated RBC % (auto) 0.0 0.0 ESR 34 H Sodium 142 142 Potassium 4.2 4.0 Chloride 105 107 Carbon Dioxide 28 28 Anion Gap 13 11 L BUN 21 H 15 Creatinine 0.99 0.98 Estimated GFR 57 57 Random Glucose 89 81 Hemoglobin A1c % 6.2 H Calcium 9.7 9.5 Phosphorus 2.7 Magnesium 2.2 Total Bilirubin 0.3 0.3 AST 65 H 45 H ALT 86 H 50 H Alkaline Phosphatase 170 H 156 H Total Creatine Kinase 163 H C-Reactive Protein 1.08 H Total Protein 7.8 7.5 Albumin 4.2 4.4 Aldolase 9.4 H 06/24/24 NCV/EMG LE Sensory greater than motor axonal peripheral neuropathy. EMG in the left L4-S1 innervated muscles is consistent with neuropathic changes. . NCV/EMG UE 05/24/20 Normal motor and sensor nerve conduction velocities in the upper extremities. Normal EMG in the left C5-T1 innervated muscles. Assessment & Plan Assessment & Plan (1) Chronic migraine without aura: Code(s): G43.709 - Chronic migraine without aura, not intractable, without status migrainosus Category: Medical Qualifiers: Status migrainosus presence: without status migrainosus Intractability: not intractable Qualified Code(s): G43.709 - Chronic migraine without aura, not intractable, without status migrainosus Plan: Continue Ajovy Solution Prefilled Syringe 225mg/1.5mL monthly subcutaneous Continue rizatriptan 10mg 1 tablet as needed for migraines Continue ondansetron 8mg 1 tablet as needed for nausea/vomiting (2) Peripheral neuropathy: Code(s): G62.9 - Polyneuropathy, unspecified Category: Medical Qualifiers: Peripheral neuropathy type: polyneuropathy, unspecified Qualified Code(s): G62.9 - Polyneuropathy, unspecified Plan: Lab results reviewed. Continue duloxetine HCL capsule delayed release 30mg 1 capsule twice a day. Control blood sugar, stay physically active. (3) Cervical disc disease: Code(s): M50.90 - Cervical disc disorder, unspecified, unspecified cervical region Category: Medical Plan For migraines: Tried Emgality in the past, currently taking Ajovy. Did not want to try Aimovig due to gastroparesis. Has not tried Botox. Medications: New rizatriptan take 1 tab at onset of headache; if no relief may repeat 1 tab after at least 4 hrs; max = 2 tabs/24 hr PO 10 tabs 5RF 30 days Discontinued rizatriptan Discontinued Reason: Order 1 tab PO DAILY PRN Migraine Headache Coding Level of Care Code Est Pt Level 4 (70493) Diagnoses Chronic migraine without aura without status migrainosus, not intractable G43.709 Status migrainosus presence: without status migrainosus Intractability: not intractable Peripheral polyneuropathy G62.9 Peripheral neuropathy type: polyneuropathy, unspecified Cervical disc disease M50.90
== END 2025-04-16 15:34 | disposition home or self-care (01) ==
LOC: HO.HSM 14:20
PROVIDERS: PCP Family Medicine; Visit Provider Registered Nurse
DX: G43.709 Chronic migraine without aura, not intractable, without status migrainosus (principal); G62.9 Polyneuropathy, unspecified; M50.90 Cervical disc disorder, unspecified, unspecified cervical region
CPT/HCPCS: 99214

== ENCOUNTER → 2025-04-16 14:19 | Outpatient (BNVA) | payer OTHER, SELFPAY | PROVIDERS: PCP Family Medicine; Visit Provider Registered Nurse | DX: G43.709 Chronic migraine without aura, not intractable, without status migrainosus (principal); G62.9 Polyneuropathy, unspecified; M50.90 Cervical disc disorder, unspecified, unspecified cervical region | CPT/HCPCS: 99212 ==

== ENCOUNTER 2025-04-27 08:44 | Outpatient (AMB) | payer OTHER, SELFPAY ==
--- NOTE | 2025-04-27 08:45 | MHC.OFFVIS ---
Vital Signs 04/27/25 08:54 Height 5 ft 4 in Weight 185 lb BMI 31.8 BP 133/69 Blood Pressure Location Rt brachial Position Sitting Pulse 83 Intake Visit Reasons: 3 month Intake Note: Patient here for 3mo follow up incisional hernia. Patient c/o: reports no changes feels better. Pharmacogeneticist Required: No Accompanied by: spouse Brandon Allergies omeprazole (OMEPRAZOLE) Allergy (Severe, Verified 04/27/25 08:51) N/V tramadol (From Ultram) Allergy (Intermediate, Verified 04/27/25 08:51) ITCHING vaccine adjuvant system, AS01B lipo (From Shingrix (PF)) Allergy (Unknown, Verified 04/27/25 08:51) Unknown varicella-zoster virus glycoprotein (From Shingrix (PF)) Allergy (Unknown, Verified 04/27/25 08:51) Unknown ibuprofen (From Motrin) Allergy (Verified 04/27/25 08:51) Unknown IVP Dye Allergy (Unknown, Uncoded 04/27/25 08:51) Unknown Z pack Allergy (Unknown, Uncoded 04/27/25 08:51) Unknown Medication List - Last Reconciled 04/27/25 by Deandre Hagan MD blood pressure monitor Automatic, Digital. Dx: I10. Daily As directed, 999 days/lifetime cetirizine (Zyrtec) 10 mg PO DAILY duloxetine 30 mg PO BID 90 days fexofenadine (Shaye Allergy) 180 mg PO DAILY fremanezumab-vfrm (Ajovy Syringe) 225 mg subcut Q30D magnesium oxide 800 mg PO BID methocarbamol 750 mg PO TID mqymlmpq-hza-ukhf-FA-vit K-lut 8 mg iron-400 mcg-50 mcg (Centrum Silver Women) 1 tab PO DAILY ondansetron 1 tab PO DAILY PRN pantoprazole 40 mg PO DAILY rizatriptan take 1 tab at onset of headache; if no relief may repeat 1 tab after at least 4 hrs; max = 2 tabs/24 hr PO 30 days tirzepatide (Mounjaro) 2.5 mg (0.5 mL) subcut QWEEK 28 days HPI HPI 3 month: Details: She is here for follow-up for an incisional hernia. She had developed this after multiple laparotomies for perforated stercoral ulcers in the colon as well as for toxic megacolon. She says that her weight has been fluctuating although she feels that she has lost some weight after being on the Mounjaro. She denies any problems with her stoma. She feels that the hernia has not been bothering her anymore. She denies any pain and tenderness. [facility] Medical History Peripheral neuropathy Cervical disc disease Prediabetes Hypertriglyceridemia Elevated blood pressure reading Bilateral foot pain Incisional hernia Parastomal hernia Subcutaneous abscess Seborrheic dermatitis Migraines Fatty liver disease, nonalcoholic Sinusitis Ileostomy in place Dizziness Recurrent vomiting Gastroparesis Intra-abdominal abscess Intra-abdominal abscess Fever of unknown origin Leukocytosis Shock Perforated viscus COVID-19 vaccine series completed Environmental allergies PONV (postoperative nausea and vomiting) Thoracic disc herniation Herniated cervical disc Back pain Fibromyalgia Hx of migraines Crohn's disease Iron deficiency anemia Carpal tunnel syndrome Arthritis Vitamin D deficiency GERD (gastroesophageal reflux disease) Surgical History S/P colectomy Status post colostomy Hx of shoulder surgery History of surgery Hx of fusion of cervical spine Hx of cholecystectomy History of tonsillectomy History of esophagogastroduodenoscopy (EGD) History of tubal ligation Hx of colonoscopy Family History Paternal Grandmother High blood pressure High cholesterol Mother Throat cancer Alcoholism Alcohol abuse Maternal Grandmother Breast cancer Paternal Grandfather Prostate cancer Family/Other High blood pressure Father Alcohol abuse Daughter FH: mental illness Social History Household Members: Spouse and Family Household Members Other:: [place] Housing: House Are you a primary interior plant caretaker to a significant other at home: No Do you presently have visiting nurse or other home services: No Unable to assess alcohol history related to: Unknown Alcohol intake: former Comment: restraints Patient Tobacco Use Status: Former Tobacco user Tobacco use type: Cigarette e-Cigarette/Vaping Use: Never Used Second Hand Smoke Exposure: No Advance Directives Date on File: 08/08/22 service: No Current occupational status: employed 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 @ [employer] Cognitive needs: No Hearing needs: No Vision needs: No Review of Systems Const Denies chills and Denies fever(s) Card Denies chest pain Resp Denies cough GI Details: Ileostomy working well Denies abdominal pain Physical Exam Const Other: Appears obese General: comfortable and no acute distress Resp Effort & Inspection: normal respiratory effort Cardio Rate: regular rate GI Other: Unable to clearly feel the hernia in view of her morbid obesity -- vaguely felt in the upper abdomen Palpation (GI): Soft to palpation, not firm, nontender and no guarding Assessment & Plan Assessment & Plan (1) Incisional hernia: Code(s): K43.2 - Incisional hernia without obstruction or gangrene Category: Medical Plan: She actually says she is doing very well. She does not feel that she is having comfort with her incisional hernia. She has had some fluctuating weight and remains obese. I advised her on the benefits of weight loss. Her stoma has been functioning well and she says she has had no issues with this I will see her again in the office in about 6 months. She is comfortable with the plan. Coding Level of Care Code Est Pt Level 3 (23019) Diagnoses Incisional hernia K43.2
[2025-04-27 08:54] VITALS: BP 133/69; PULSE 83; BMI 31.8
--- OUTSIDE RECORDS SUMMARY | 2025-04-27 09:07 | XMS_ITS | Clinical Summary ---
Author Organization [facility] Address [address] [address] Phone Care Team Providers Care Wood Mill Supervisor Name Role Phone Manolo Bonilla MD Primary Care Provider Allergies Active Allergy Reactions Criticality Noted Date Comments Ibuprofen Diarrhea,Weight Gain Low 08/01/2021 Nsaids (Non-Steroidal Anti-Inflammatory Drug) 02/07/2023 Cant take due to stomach Omeprazole Nausea and/or Vomiting 08/09/2017 Tramadol Itching 08/09/2017 Medications multivitamin-train examiner als-lutein (CENTRUM SILVER) Tab Take 1 [...] Take 1 tablet by mouth every morning. 10/20/20 23 Active MOUNJARO 2.5 mg/0.5 mL PnIj [...] in writing. Provider: Tory Cordova MD Patient: Ju Hankins : 1960 Date: 02/07/2023 Migraine without [...] as needed and tolerated. Consider checkup with hot metal car operator versus investor relations manager if not better. On SSRI therapy 09/20/2020 [...] and dietary modifications as instructed by treating rolls baker. Assessment & Plan (12/17/2021 2:48 PM EDT): Continue treatment with mesalamine (Apriso) and dietary modifications as instructed by treating rolls baker. Assessment & Plan (11/22/2020 9:04 AM EDT): Continue treatment with mesalamine (Apriso) and dietary modifications as instructed by treating rolls baker. Assessment & Plan (09/20/2020 9:03 AM EST): Continue treatment with mesalamine (Apriso) and dietary modifications as instructed by treating rolls baker. Assessment & Plan (07/12/2020 9:14 AM EST): Continue treatment with mesalamine (Apriso) and dietary modifications as instructed by treating rolls baker. Assessment & Plan (03/16/2020 11:49 AM EDT): Continue treatment with mesalamine (Apriso) and dietary modifications as instructed by treating rolls baker. Assessment & Plan (12/25/2019 9:04 AM EDT): Continue treatment with mesalamine (Apriso) and dietary modifications as instructed by treating rolls baker. Trochanteric bursitis 02/13/2019 Chronic gastritis without bleeding 10/10/2018 Assessment & Plan (03/16/2020 11:49 AM EDT): New close follow-up with rolls baker exactly as scheduled. Avoid late, large, spicy [...] and asks for confirmatory letter to her [employer] HR to accommodate request for OSHA approved [...] and asks for confirmatory letter to her [employer] HR to accommodate request for OSHA approved [...] and asks for confirmatory letter to her [employer] to accommodate request for OSHA approved stool. [...] Monitor periodically-no additional worrisome abnormalities detected by independent producer/oncologist-Dr. Do during summer 2017 consultation-per patient report Encounters Date Type Department Care Team Description 04/10/2025 Refill [facility] Rheumatology [address] [place] [address] [place] [address] Tory Cordova MD Medication Refill 01/29/2025 Orders Only [facility] Rheumatology [address] [place] [address] [place] [address] ProviderKrystyna MD 01/28/2025 3:00 PM EDT Office Visit [facility] Rheumatology [address] [place] [address] [place] [address] Tory Cordova MD Inflammatory polyarthritis (Primary Dx); [...] 35.9 in adult; Hypomagnesemia; On SSRI therapy from Last 3 Months Immunizations Immunization Administration [...] Description 08/10/2025 8:30 AM EST Office Visit [facility] Rheumatology [address] [place] [address] [place] [address] Tory Cordova MD [address] [facility], [address] [place] [address] [email or web address] Health Maintenance Due Date Last Done Comments [...] SEE NARRATIVE - 12/03/2020 10:23 AM EDT [address] [address] Marketing Rep: Shikha Girard MD UI UX DEVELOPER Cytology Report FINAL DIAGNOSIS A. PAP SMEAR [...] 52, 56, 58, 59, 66, 68) by [employer] Onclarity HR-HPV analysis. Clinical correlation is advised. This HPV test was performed at [facility], [address] [place] [address]. This test has been FDA approved for SurePath cervical cytology specimens. The accuracy and precision of this test for all other specimen sources has been verified in the Cytopathology Laboratory of the [facility] and has not been cleared or approved by the U.S. Food and Drug Administration. Clinical correlation is advised. CLINICAL HISTORY Date of Last Menstrual Period: Not Provided Menstrual History: Post Menopausal Other Clinical Conditions: Screening Pap SPECIMEN SOURCE A: PAP SMEAR (SUREPATH) CE Patient Name: JU HANKINS : 1960 (Age: 60) Sex: F Institution: [facility] Location: [facility] Date of Collection: 11/29/2020 Date of Reported: 12/02/2020 14:55 Results to: Leticia Gonzalez MD us Leticia Gonzalez MD CYTOLOGY ORDERABLES Edited Result - Final SEE NARRATIVE * Outside HbA1c (06/23/2020) us Tory Cordova MD LAB BLOOD ORDERABLES Fin al Result from Last 3 Months or Most Recently Relevant to Health Maintenance [place] [address] [address] [place] [address] [employer] [facility] [employer] [facility] [employer] [address] [place] [address] [place] [address] [place] [address] [place] [address] [place] [address] [employer] Care Teams Wood Mill Supervisor Relationship Specialty Start Date End Date Manolo Bonilla MD [address] [place] [id number] PCP - General Family Medicine 08/10/23 Additional Source Comments The information contained in this document represents components of the legal health record. It is not the complete legal health record.[facility]
--- OUTSIDE RECORDS SUMMARY | 2025-04-27 09:08 | XMS_ITS | Clinical Summary ---
Author Organization [facility] Address [address] [place] [address] Phone Care Team Providers Care Ocean Freight Manager Name Role Phone Manolo Bonilla MD Primary Care Provider [phone] Allergies Active Allergy Reactions Criticality Noted Date Comments Ibuprofen 06/20/2024 Omeprazole 06/20/2024 Tramadol 06/20/2024 Medications No known medications Active Problems Problem Noted Date Diagnosed Date PONV (postoperative nausea and vomiting) 024 Arthritis 06/20/2024 Bilateral foot pain 06/20/2024 Carpal tunnel syndrome 06/20/2024 Crohn disease ([facility] V24, [facility] V28) 024 Dizziness 06/20/2024 Elevated blood pressure reading 06/20/2024 Fatty liver disease, nonalcoholic 06/20/2024 Fever of unknown origin 06/20/2024 Fibromyalgia 06/20/2024 Gastroparesis 06/20/2024 Hypertriglyceridemia 06/20/[address] ([facility] V24, [facility] V28) Intra-abdominal abscess ([facility] V24, [facility] V2 8) 06/20/2024 Iron deficiency anemia 06/20/2024 Leukocytosis 06/20/2024 Migraines 06/20/2024 Pain in right foot 06/20/2024 Parastomal hernia 06/20/2024 Perforated viscus 06/20/2024 Prediabetes 06/20/2024 Recurrent vomiting 06/20/2024 Seborrheic dermatitis 06/20/2024 Shock ([facility] V24, [facility] V28) 06/20/2024 Sinusitis 06/20/2024 Subcutaneous abscess 06/20/2024 Encounters Date Type Department Care Team Description 04/20/2025 9:00 AM EDT Office Visit Orthopedic Surgery [facility] [address] [phone] Matthew Hall, DPM Metatarsalgia of right foot (Primary Dx); Lateral epicondylitis of left elbow; Neuritis 02/09/2025 8:15 AM EDT Office Visit Orthopedic Surgery [facility] [address] [phone] Matthew Hall, DPM Metatarsalgia of right foot (Primary Dx); [...] Care Team (Late st Contact Info) Description 05/22/2025 11:00 AM EDT Consult Orthopedic Surgery [facility] [address] [phone] Nikki Melara MD [address] [phone] Health Maintenance Due Date Last Done Comments [...] patient's age to complete this topic Insurance [facility] [employer] Care Teams Ocean Freight Manager Relationship Specialty Start Date End Date Manolo Bonilla MD [address] [place] [address] Dr Leonel [place] PCP - General 05/05/24
--- OUTSIDE RECORDS SUMMARY | 2025-04-27 09:08 | XMS_ITS | Patient Health Record ---
Author Organization [facility] Address [address] [place] [phone] Care Team Providers Care Consulting Practice Manager Name Role Phone Aren (RETIRED) Deandre SAUER [...] 1999 former smoker over 18 years quit 2000 former smoker over 18 years quit 1999 former smoker over 20 years quit 1999, has an occasional cocktail former smoker over 20 years quit 1999, has an occasional cocktail Problems Problem Type SNOMED Code ICD Code Onset Dates Problem Status W/U Status Risk Notes Problem 152451440 Gastro-esophagea l reflux disease without esophagitis (K21.9) Active confirmed Problem 234121459 Nausea (R11.0) Active confirmed Problem Gastroesophageal reflux disease (K21.9) Active confirmed Problem 71795672 Crohns disease o f both small and large intestine without complication (K50.80) Active confirmed Problem 093768197 Gastroesophageal reflux disease without esophagitis (K21.9) Active confirmed Problem 06381573 Colitis (K52.9) Active confirmed Problem 85161043 Diarrhea, unspecified type (R19.7) Active confirmed Problem 959402653 Irritable bowel syndrome with constipation (K58.1) Active confirmed Problem 81129397 Crohn's disease of colon without complication (K50.10) [...] [employer] [place] [address] [address] [place] [address] [id number] Ju Pereyra Self - patient is the insured Medical (General) History Medical History History ICD Code esophageal reflux low vitamin D level arthritis carpal tunnel syndrome Denies CA,DM,CVA,Lung disease,renal dise ase iron deficiency anemia Crohn's colitis, last colonoscopy 2018, no active disease. Surgical History Surgery Date(Month/Year) neck surgery cholecystectomy tubal ligation several orthopedic surgeries
--- OUTSIDE RECORDS SUMMARY | 2025-04-27 09:08 | XMS_ITS | Patient Health Record ---
Author Organization Shamar Do III, MD Address [address] [place] [address] [address] [place] [address] Care Team Providers Care Conductor Symphonic Orchestra Name Role Phone Manolo Bonilla Primary Care Provider Unavailab Shamar Munguia Unavailable [phone] Allergies Allergen (clinical drug ingredient) Drug/Non Drug [...] Problem Status W/U Status Risk Notes Problem 390459968 Thrombocytopenia (D69.6) Active confirmed Her platelet count has returned to normal and she has had no bleeding or clotting. Problem 261552388 Obesity (BMI 30-39.9) (E66.9) Active confirmed Her weight has been volatile. Her body mass index is now 32.7. We have discussed lifestyle modification diet and nutrition at length. Problem 04466893 Essential hypertension (I10) Active confirmed Her blood pressure is currently normal and no change in her regimen is necessary. The value is 122/82. I recommended weight loss and sodium restriction. Problem 70557148 Degenerative dis c disease, cervical (M50.30) Active confirmed Problem 140768284 History of cholecystectomy (Z90.49) Active confirmed Problem 78300891 Leukopenia, unspecified type (D72.819) Active confirmed The value is now in the normal range. She has had no recent infections. Problem 31280753 Normochromic normocytic anemia (D64.9) Active confirmed The hematocrit and mean cell volume are now normal. 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 I strongly recommended she continue routine and regular visits with MARINE ENGINE MACHINIST. Problem 576640771 H/O tubal ligati on (Z98.51) Active confirmed Vital Signs Heart Rate 80 /min 04/28/2024 Temperature 99.9 degrees Fahrenheit 04/28/2024 Blood pressure diastolic 91 mm Hg 04/28/2024 Height 62 in 04/28/2024 Blood pressure systolic 149 mm Hg 04/28/2024 Weight 195 lbs 04/28/2024 BMI 35.66 kg/m2 04/28/2024 Encounters Encounter Location Date Provider Diagnosis Shamar Do III, MD [address] [place] [address] [place] [phone] 04/28/2024 Shamar Do Leukopenia, unspecif ied type [...] Details Provider Name:Shamar Do, 04/29/2025 09:30:00 AM, [address] [place] [address] [address], [place], [phone], Insurance Providers Payer Name Payer Address Payer Phone Subscriber Number Group Number Insured Name Patient Relationship to Insured Coverage Start Date Coverage End Date [facility] [address] [place] [phone] [id number] Ju Hankins Self - patient is the [...] 1994 tonsillectomy 1979 Hospitalization History Reason Date(Month/Year) [facility] May 2017
== END 2025-04-27 09:03 | disposition home or self-care (01) ==
LOC: HO.HGS 08:45
PROVIDERS: PCP Family Medicine; Visit Provider Surgery
DX: K43.2 Incisional hernia without obstruction or gangrene (principal)
CPT/HCPCS: 99213

== ENCOUNTER → 2025-04-27 08:44 | Outpatient (BNVA) | payer OTHER, SELFPAY | PROVIDERS: PCP Family Medicine; Visit Provider Surgery | DX: K43.2 Incisional hernia without obstruction or gangrene (principal) | CPT/HCPCS: 99212 ==

== ENCOUNTER 2025-05-12 15:30 | Outpatient (AMB) | payer OTHER, SELFPAY ==
--- NOTE | 2025-05-12 15:32 | MHC.PC.OV ---
Vital Signs 05/12/25 15:40 Height 5 ft 4 in Weight 185 lb 4 oz BMI 31.8 BP 118/68 Blood Pressure Location Lt brachial Position Sitting Respiration 12 Pulse 85 Pulse Source Pulse Oximeter Temp 97.1 F Temp Source Oral Pulse Oximetry (%) 98 Oxygen Delivery Method Room Air Intake Visit Reasons: f/u liver enzymes, chronic conditions Intake Note: Follow up review labs. Clinical Massage Therapist Required: No Allergies omeprazole (OMEPRAZOLE) Allergy (Severe, Verified 05/12/25 15:34) N/V tramadol (From Ultram) Allergy (Intermediate, Verified 05/12/25 15:34) ITCHING vaccine adjuvant system, AS01B lipo (From Shingrix (PF)) Allergy (Unknown, Verified 05/12/25 15:34) Unknown varicella-zoster virus glycoprotein (From Shingrix (PF)) Allergy (Unknown, Verified 05/12/25 15:34) Unknown ibuprofen (From Motrin) Allergy (Verified 05/12/25 15:34) Unknown IVP Dye Allergy (Unknown, Uncoded 05/12/25 15:34) Unknown Z pack Allergy (Unknown, Uncoded 05/12/25 15:34) Unknown Medication List - Last Reconciled 05/12/25 by Manolo Bonilla MD blood pressure monitor Automatic, Digital. Dx: I10. Daily As directed, 999 days/lifetime cetirizine (Zyrtec) 10 mg PO DAILY duloxetine 30 mg PO BID 90 days fexofenadine (Shaye Allergy) 180 mg PO DAILY fremanezumab-vfrm (Ajovy Syringe) 225 mg subcut Q30D magnesium oxide 800 mg PO BID methocarbamol 750 mg PO TID rftztjid-ewg-wrfd-FA-vit K-lut 8 mg iron-400 mcg-50 mcg (Centrum Silver Women) 1 tab PO DAILY ondansetron 1 tab PO DAILY PRN pantoprazole 40 mg PO DAILY rizatriptan take 1 tab at onset of headache; if no relief may repeat 1 tab after at least 4 hrs; max = 2 tabs/24 hr PO 30 days tirzepatide (Mounjaro) 2.5 mg (0.5 mL) subcut QWEEK 28 days Tobacco use date assessed: 05/12/25 Fall risk assessment: No Falls in past year Last assessed Fall Risk: 05/12/25 Dental Screening Dental Screen Date: 05/12/25 Did you have a dental visit in the last 12 months?: Yes Did you have a dental problem in the last 6 months where you did not have access to dental care?: No Was dental information given to patient?: Patient has dentist HPI f/u liver enzymes, chronic conditions HPI Details 65 y/o female presents to f/u liver enzymes, diabetes, chronic conditions. A1c today 5.4%. She is on mounjaro 2.5mg. Labs drawn 03/09/25. Elevated liver enzymes - AST 45, ALT 50. Continues to f/u with her specialists for chronic hives, neuropathy. HPI Comments History of Present Illness Details Documentation assistance for Manolo Bonilla MD, was provided by Abel Gómez,? Announcer on 05/12/2025 at 4:09 PM EST. I, Dr. Bonilla, have read, observed, and verified documentation. ?? PFS Medical History Peripheral neuropathy Cervical disc disease Prediabetes Hypertriglyceridemia Elevated blood pressure reading Bilateral foot pain Incisional hernia Parastomal hernia Subcutaneous abscess Seborrheic dermatitis Migraines Fatty liver disease, nonalcoholic Sinusitis Ileostomy in place Dizziness Recurrent vomiting Gastroparesis Intra-abdominal abscess Intra-abdominal abscess Fever of unknown origin Leukocytosis Shock Perforated viscus COVID-19 vaccine series completed Environmental allergies PONV (postoperative nausea and vomiting) Thoracic disc herniation Herniated cervical disc Back pain Fibromyalgia Hx of migraines Crohn's disease Iron deficiency anemia Carpal tunnel syndrome Arthritis Vitamin D deficiency GERD (gastroesophageal reflux disease) Surgical History S/P colectomy Status post colostomy Hx of shoulder surgery History of surgery Hx of fusion of cervical spine Hx of cholecystectomy History of tonsillectomy History of esophagogastroduodenoscopy (EGD) History of tubal ligation Hx of colonoscopy Family History Paternal Grandmother High blood pressure High cholesterol Mother Throat cancer Alcoholism Alcohol abuse Maternal Grandmother Breast cancer Paternal Grandfather Prostate cancer Family/Other High blood pressure Father Alcohol abuse Daughter FH: mental illness Social History Household Members: Spouse and Family Household Members Other:: [place] Housing: House Are you a primary school child care attendant to a significant other at home: No Do you presently have visiting nurse or other home services: No Unable to assess alcohol history related to: Unknown Alcohol intake: former Comment: restraints Patient Tobacco Use Status: Former Tobacco user Tobacco use type: Cigarette e-Cigarette/Vaping Use: Never Used Second Hand Smoke Exposure: No Advance Directives Date on File: 08/08/22 service: No Current occupational status: employed 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 1. Little interest or pleasure in doing things: not at all 2. Feeling down, depressed, or hopeless: not at all 3. Trouble falling or staying asleep, or sleeping too much: not at all 4. Feeling tired or having little energy: not at all 5. Poor appetite or overeating: not at all 6. Feeling bad about yourself - or that you are a failure or have let yourself or your family down: not at all 7. Trouble concentrating on things, such as reading the newspaper or watching television: not at all 8. Moving or speaking so slowly that other people could have noticed. Or the opposite - being so fidgety or restless that you have been moving around a lot more than usual: not at all 9. Thoughts that you would be better off or of hurting yourself in some way: not at all Total score: 0 Depression Screening Interpretation: Negative Depression Screening Done: Yes 91703 - PHQ-9 Billing: Yes Source: Developed by Drs. Shamar Diaz, Janene Yates, Lavon Serna and colleagues, with an educational lo from [employer]. Thrive Questionnaire Date Thrive assessed: 05/12/25 I am a: Patient What is your living situation today?: I have a steady place to live Within the past 12 months, did the food you bought not last and you didn't have the money to get more?: Never true Within the past 12 months, did you worry whether your food would run out before you got money to buy more?: Never true Do you have trouble paying for medicines?: No Do you have trouble getting transportation to medical appointments?: No Do you have trouble paying your heating and electricity bill?: No Do you have trouble taking care of your child, family member or friend?: No Do you have trouble with day-to-day activities such as bathing, preparing meals, shopping, managing finances, etc.?: No Are you currently unemployed and looking for a job?: No Are you interested in more education?: No Please select the resources that you would like help with: None Currently or been in a relationship where the following occur: No concerns reported THRIVE Score: 0 AUDIT C Alcohol Use Questionnaire (AUDIT-C) 2. How many drinks containing alcohol do you have on a typical day when you are drinking?: 1 or 2 3. How often do you have six or more drinks on one occasion?: Never Total Score: 0 BRANDON-7 AMB Questionnaire BRANDON-7 Date BRANDON - 7 assessed: 05/12/25 Feeling nervous, anxious, or on edge: 0 = Not at all Not being able to stop or control worryin = Not at all Worrying too much about different things: 0 = Not at all Trouble relaxin = Not at all Being so restless that it is hard to sit still: 0 = Not at all Becoming easily annoyed or irritable: 0 = Not at all Feeling afraid as if something awful might happen: 0 = Not at all Total BRANDON-7 score (0-4 normal; 5-9 mild; 10-14 moderate; 15-21 severe): 0 Source: Developed by Drs. Shamar Diaz, Janene Yates, Lavon Serna and colleagues, with an educational lo from [employer]. BRANDON-7 Assessment Billing BRANDON-7 Assessment Tool: BRANDON-7 Assessment 17785 Review of Systems Const Denies chills, Denies fatigue, Denies fever(s), Denies headache(s) and Denies weakness ENT Denies dizziness and Denies headache(s) Card Denies dyspnea Resp Denies cough, Denies dyspnea, Denies wheezing and Denies other (shortness of breath) Musc Denies numbness and Denies tingling Neuro Denies dizziness, Denies headache(s), Denies numbness, Denies tingling and Denies weakness Psych Denies anxiety and Denies depression Endo Denies fatigue Aller/Immun Denies wheezing Physical exam (Primary Care) Vital Signs: Last Vital Signs Temp 97.1 F 05/12/25 15:40 Pulse 85 05/12/25 15:40 Resp 12 05/12/25 15:40 BP 118/68 05/12/25 15:40 Pulse Ox 98 05/12/25 15:40 Oxygen Delivery Method Room Air 05/12/25 15:40 BMI result Body Mass Index 31.8 Tobacco/Smoking Status: Tobacco use Status Tobacco use date assessed 05/12/25 05/12/25 15:35 Patient Tobacco Use Status Former Tobacco user 05/12/25 15:33 Tobacco use type Cigarette 05/12/25 15:33 e-Cigarette/Vaping Use Never Used 05/12/25 15:33 PHQ-9: PHQ-9 Score PHQ-9: Total score 0 05/12/25 16:06 Depression Screening Interpretation: Negative Thrive Assessment: Date of Thrive Assessment Date Thrive assessed 05/12/25 05/12/25 15:33 Currently or been in a relationship where the following occur: No concerns reported Const General: well developed; No acute distress Nutritional Appearance: well nourished Orientation/consciousness: patient oriented x3 HENMT Head: Yes normocephalic and Yes atraumatic Eyes General: appearance normal, both eyes and all related structures Pupils: Equal, round and reactive pupils present EOM: EOMs intact bilaterally Resp Effort & Inspection: normal respiratory effort Neuro General: patient oriented x3 and gait normal Cranial nerves: Yes Equal, round and reactive pupils present Psych Affect: normal affect Results AMB Hemoglobin A1c AMB Hemoglobin A1c 5.4 % Last Edit by Laura Garcia MA on 05/12/25 15:51 Results Reviewed Results Reviewed: Laboratory Last Values Hgb A1c (Clinic) 5.4 % (4.0-6.0) 05/12/25 15:35 Coding Level of Care Code Est Pt Level 4 (82354) Diagnoses Diabetes E11.9 Elevated liver enzymes R74.8 Chronic urticaria L50.8 Migraines G43.909 Peripheral polyneuropathy G62.9 Peripheral neuropathy type: polyneuropathy, unspecified Additional Codes BRANDON-7 Assessment Billing - BRANDON-7 Assessment Tool: BRANDON-7 Assessment 02660 ([id number]) PHQ-9 - 63063 - PHQ-9 Billing: Yes ([id number]) Assessment & Plan Assessment & Plan (1) Diabetes: Code(s): E11.9 - Type 2 diabetes mellitus without complications Category: Medical Plan: A1c 5.4%. Controlled. Goal is less than 7.0% She is taking Mounjaro. Had lost weight but says this has leveled out. Will increase Mounjaro (2) Elevated liver enzymes: Code(s): R74.8 - Abnormal levels of other serum enzymes Category: Medical Plan: Recent liver ultrasound showed hepatic steatosis with some hepatomegaly. Shear wave elastography was negative. Will continue to monitor liver enzymes Continue to work at weight loss and good hydration (3) Chronic urticaria: Code(s): L50.8 - Other urticaria Category: Medical Plan: Followed by immunology They have tried multiple antihistamines and she has follow-up planned. (4) Migraines: Code(s): G43.909 - Migraine, unspecified, not intractable, without status migrainosus Category: Medical (5) Peripheral neuropathy: Code(s): G62.9 - Polyneuropathy, unspecified Category: Medical Qualifiers: Peripheral neuropathy type: polyneuropathy, unspecified Qualified Code(s): G62.9 - Polyneuropathy, unspecified Plan Followed by neurology for Migraines and peripheral neuropathy. Continues Ajovy, rizatriptan and duloxetine Orders: Orders AMB Hemoglobin A1c Today E11.9 - Type 2 diabetes mellitus without complications, R73.03 - Prediabetes, Z13.9 - Encounter for screening, unspecified Comprehensive [place]. Panel Fast Today R74.8 - Abnormal levels of other serum enzymes, Z00.00 - Encounter for general adult medical examination without abnormal findings Medications: Changed From tirzepatide (Mounjaro) for 4 weeks 2.5 mg (0.5 mL) subcut QWEEK 28 days 2 mL 3RF To tirzepatide for 4 weeks 5 mg (0.5 mL) subcut QWEEK 2 mL 3RF 28 days
[2025-05-12 15:40] VITALS: BP 118/68; PULSE 85; RESP 12; TEMP 36.2; O2SAT 98; BMI 31.8
--- OUTSIDE RECORDS SUMMARY | 2025-05-12 16:31 | XMS_ITS | Clinical Summary ---
Author Organization [facility] Address [address] [address] Phone Care Team Providers Care Distribution Specialist Name Role Phone Manolo Bonilla MD Primary Care Provider Allergies Active Allergy Reactions Criticality Noted Date Comments Ibuprofen Diarrhea,Weight Gain Low 08/01/2021 Nsaids (Non-Steroidal Anti-Inflammatory Drug) 02/07/2023 Cant take due to stomach Omeprazole Nausea and/or Vomiting 08/09/2017 Tramadol Itching 08/09/2017 Medications multivitamin-minera ls-lutein (CENTRUM SILVER) Tab Take 1 tablet by mouth daily. Active rizatriptan (MAXALT) 10 MG tablet Take 10 mg by mouth daily as needed. 2 Active ondansetron (ZOFRAN-ODT) [address] 1 TABLET ON THE TONGUE AND ALLOW TO DISSOLVE NEEDED ORALLY ONCE A DAY 2 Active loratadine (CLARITIN) 10 mg tablet Take 10 mg by mouth daily. Active AJOVY SYRINGE 225 mg/1.5 mL subcutaneous syringe Inject 225 mg under the skin every 30 (thirty) days. 2 Active DULoxetine (CYMBALTA) 20 MG capsule Take 1 capsule by mouth 2 (two) times a day. Patient taking 30 mg bid 3 Active magnesium oxide 400 mg magnesium Tab Take 800 mg by mouth 2 (two) times a day. Active pantoprazole (PROTONIX) 40 MG tablet Take 1 tablet by mouth every morning. 3 Active MOUNJARO 2.5 mg/0.5 mL PnIj subcutaneous pen Inject 2.5 mg under the skin once a week. 5 Active methocarbamoL (ROBAXIN) 750 MG tabletIndications:F ibromyalgia TAKE 1 TABLET BY MOUTH 3 TIMES A DAY. 90 tablet 2 5 Active Active Problems Problem Noted Date Diagnosed [...] writing. Provider: Tory Cordova MD Patient: Ju Pereyra : 1960 Date: 02/07/2023 Migraine without aura [...] as needed and tolerated. Consider checkup with art glass setter versus mds nurse if not better. On SSRI therapy 09/20/2020 [...] and dietary modifications as instructed by treating bleach liquor maker. Assessment & Plan (12/17/2021 2:48 PM EDT): Continue treatment with mesalamine (Apriso) and dietary modifications as instructed by treating bleach liquor maker. Assessment & Plan (11/22/2020 9:04 AM EDT): Continue treatment with mesalamine (Apriso) and dietary modifications as instructed by treating bleach liquor maker. Assessment & Plan (09/20/2020 9:03 AM EST): Continue treatment with mesalamine (Apriso) and dietary modifications as instructed by treating bleach liquor maker. Assessment & Plan (07/12/2020 9:14 AM EST): Continue treatment with mesalamine (Apriso) and dietary modifications as instructed by treating bleach liquor maker. Assessment & Plan (03/16/2020 11:49 AM EDT): Continue treatment with mesalamine (Apriso) and dietary modifications as instructed by treating bleach liquor maker. Assessment & Plan (12/25/2019 9:04 AM EDT): Continue treatment with mesalamine (Apriso) and dietary modifications as instructed by treating bleach liquor maker. Trochanteric bursitis 02/13/2019 Chronic gastritis without bleeding 10/10/2018 Assessment & Plan (03/16/2020 11:49 AM EDT): New close follow-up with bleach liquor maker exactly as scheduled. Avoid late, large, spicy [...] several severe health issues from the beginning 2023- decided to forfeit it now. Get [...] health issues from the beginning of 2023 calendar-year decided to forfeit it now. Get the [...] health issues from the beginning of 2023 calendar-year decided to forfeit it now. Get the [...] and asks for confirmatory letter to her [employer] to accommodate request for OSHA approved stool. [...] asks for confirmatory letter to her [employer] to accommodate request for OSHA approved stool. [...] from reading book written by Dr Leeroy osorio living addressing management strategies for patients with [...] from reading book written by Dr Leeroy Stroud catastrophe living addressing management strategies for patients [...] from reading book written by Dr Leeroy Stroud catastrophe living addressing management strategies for patients [...] Monitor periodically-no additional worrisome abnormalities detected by physician general internal medicine/oncologist-Dr. Do during summer 2017 consultation-per patient report Encounters Date Type Department Care Team Description 04/10/2025 Refill [facility] Rheumatology [address] [place] [address] Tory Cordova MD Medication Refill from Last [...] Description 08/10/2025 8:30 AM EST Office Visit [facility] Rheumatology [address] [place] [address] Tory Cordova MD [address] [place] [address], [address] [place] [address] [email or web address] Health Maintenance Due Date Last Done Comments [...] EYE EXAM 01/28/2025 URINE MICROALBUMIN/CREATININE RATIO 01/28/2025 INFLUENZA VACCINE (#1) 2025 4, 06/06/2023, 10/26/2022, Additional history exists BLOOD PRESSURE 07/31/2025 01/28/2025 ZOSTER VACCINES Completed [...] SEE NARRATIVE - 12/03/2020 10:23 AM EDT [address] [address] Legger Press Operator: Shikha Girard MD SECTION 8 PROPERTY MANAGER Cytology Report FINAL DIAGNOSIS A. PAP SMEAR [...] 52, 56, 58, 59, 66, 68) by Conor FanBread Onclarity HR-HPV analysis. Clinical correlation is advised. This HPV test was performed at [facility], [address] [place] [address]. This test has been FDA approved for [facility] cervical cytology specimens. The accuracy and precision of this test for all other specimen sources has been verified in the Cytopathology Laboratory of the [facility] and has not been cleared or approved by the U.S. Food and Drug Administration. Clinical correlation is advised. CLINICAL HISTORY Date of Last Menstrual Period: Not Provided Menstrual History: Post Menopausal Other Clinical Conditions: Screening Pap SPECIMEN SOURCE A: PAP SMEAR (SUREPATH) CE Patient Name: JU PEREYRA : 1960 (Age: 60) Sex: F Institution: [facility] Location: [facility] Date of Collection: 11/29/2020 Date of Reported: 12/02/2020 14:55 Results to: Leticia Gonzalez MD us Leticia Gonzalez MD CYTOLOGY ORDERABLES Edited Result - Final SEE NARRATIVE * Outside HbA1c (06/23/2020) us Tory Cordova MD LAB BLOOD ORDERABLES Fin al Result from Last 3 Months or Most Recently Relevant to Health Maintenance [facility] [address] [place] [address] [employer] [facility] [address] [place] [address] [facility] [facility] [facility] Care Teams Distribution Specialist Relationship Specialty Start Date End Date Manolo Bonilla MD [address] [place] [address] PCP - General Family Medicine 08/10/23 Additional Source Comments The information contained in this document represents components of the legal health record. It is not the complete legal health record.[facility]
--- OUTSIDE RECORDS SUMMARY | 2025-05-12 16:31 | XMS_ITS | Clinical Summary ---
Author Organization [address] [facility] Address [address] [place] [address] Phone Care Team Providers Care Apparel Sales Associate Name Role Phone Manolo Bonilla MD Primary Care Provider Allergies Active Allergy Reactions Criticality Noted Date Comments Ibuprofen 06/20/2024 Omeprazole 06/20/2024 Tramadol 06/20/2024 Medications No known medications Active Problems Problem Noted Date Diagnosed Date PONV (postoperative nausea and vomiting) 024 Arthritis 06/20/2024 Bilateral foot pain 06/20/2024 Carpal tunnel syndrome 06/20/2024 Crohn disease ([facility] V24, [facility] V28) 024 Dizziness 06/20/2024 Elevated blood pressure reading 06/20/2024 Fatty liver disease, nonalcoholic 06/20/2024 Fever of unknown origin 06/20/2024 Fibromyalgia 06/20/2024 Gastroparesis 06/20/2024 Hypertriglyceridemia 06/20/[address] ([facility] V24, [facility] V28) Intra-abdominal abscess ([facility] V24, [facility] V2 8) 06/20/2024 Iron deficiency anemia 06/20/2024 Leukocytosis 06/20/2024 Migraines 06/20/2024 Pain in right foot 06/20/2024 Parastomal hernia 06/20/2024 Perforated viscus 06/20/2024 Prediabetes 06/20/2024 Recurrent vomiting 06/20/2024 Seborrheic dermatitis 06/20/2024 Shock ([facility] V24, [facility] V28) 06/20/2024 Sinusitis 06/20/2024 Subcutaneous abscess 06/20/2024 Encounters Date Type Department Care Team Description 04/20/2025 9:00 AM EDT Office Visit Orthopedic Surgery [facility] [address] [phone] Matthew Hall, DPM Metatarsalgia of right foot (Primary Dx); Lateral epicondylitis of left elbow; Neuritis 02/09/2025 8:15 AM EDT Office Visit Orthopedic Surgery [facility] [address] [phone] Matthew Hall, DPM Metatarsalgia of right foot [...] 05/22/2025 11:00 AM EDT Consult Orthopedic Surgery [facility] [address] [phone] Nikki Melara MD [address] [phone] Health Maintenance Due Date Last Done Comments [...] patient's age to complete this topic Insurance [facility] PUBLIC PL[employer] Care Teams Apparel Sales Associate Relationship Specialty Start Date End Date Manolo Bonilla MD [address] [place] [address] Dr Leonel [place] PCP - General 05/05/24
== END 2025-05-12 16:34 | disposition home or self-care (01) ==
LOC: HO.HMCFM 15:31
PROVIDERS: PCP Family Medicine; Visit Provider Family Medicine
DX: E11.42 Type 2 diabetes mellitus with diabetic polyneuropathy (principal); R74.8 Abnormal levels of other serum enzymes; L50.8 Other urticaria; G43.909 Migraine, unspecified, not intractable, without status migrainosus; G62.9 Polyneuropathy, unspecified

== ENCOUNTER → 2025-05-12 15:30 | Outpatient (BNVA) | payer OTHER, SELFPAY | PROVIDERS: PCP Family Medicine; Visit Provider Family Medicine | DX: E11.9 Type 2 diabetes mellitus without complications (principal); R74.8 Abnormal levels of other serum enzymes; L50.8 Other urticaria; G62.9 Polyneuropathy, unspecified; G43.909 Migraine, unspecified, not intractable, without status migrainosus | CPT/HCPCS: 83036; 96127; 99212 ==

== ENCOUNTER 2025-07-13 08:33 | Outpatient (AMB) | payer OTHER, SELFPAY ==
--- OUTSIDE RECORDS SUMMARY | 2024-04-21 12:00 | XMS_ITS ---
Author Organization Shamar Do III, MD Address [address] [place] [address] [place] [address] Care Team Providers Care Polisher Dial Name Role Phone Manolo Bonilla Primary Care Provider Unavailab Dr. Shamar Munguia III Unavailable [phone] REASON FOR VISIT Follow up Social History Sex Assigned At : Social History Observation Description Sex Assigned At Female Encounters Encounter Location Date Provider Diagnosis Shamar Do III, MD [address] [place] [address] [place] [address] 04/21/2024 Shamar Do Plan Of Treatment No Information Progress Notes * Ju HANKINS MDOB: (65 yo F)Acc No.[id number]:04/21/2024 Progress Notes Patient: Lorna ROSEJu Provider: Nate Do MD :1960 A ge:64 Y S ex:Female Date:04/21/2024 Address:[address] [id number] Pcp:Manolo Bonilla Subjective: * Chief Complaints: * 1 . Follow up. * Medical History: Objective: * Vitals: Assessment: Plan: * Treatment: * Images: * The named appointment provid er may or may not be the originator of this progress note, and it is not deemed complete until electronically signed by the appointment provider. Sign off status: Pending * Provider: Nate Do MD Date: 0 04/21/2024 Generated for Jakob danielle/Juan/Mioitting on: 1 09/12/2024 09:00 AM EST
--- OUTSIDE RECORDS SUMMARY | 2024-04-28 04:15 | XMS_ITS ---
Author Organization Shamar Do III, MD Address [address] [place] [address] [address] [address] Care Team Providers Care Milk Condenser Name Role Phone Manolo Bonilla Primary Care Provider Unavailab Dr. Shamar Munguia III Unavailable [phone] Allergies Allergen (clinical drug ingredient) Drug/Non Drug Allergy documented on EMR Reaction Allergy Type Onset Date Status tramadol Ultram Unknown Drug Allergy Active omeprazole Omeprazole Unknown Drug Allergy Activ e REASON FOR VISIT Pancytopenia, Hypertension, Obesity, Degenerative disc disease cervical spine Medications Medication SIG (Take, Route, Frequency, Duration) Notes Start Date End Date Status Vitamin D3 Active Famotidine Active Ajovy 225 MG/1.5ML as directed Subcutaneous once a month Active DULoxetine HCl Activ e Methocarbamol Active Claritin 10 MG 1 tablet Orally Once a day Active Magnesium 400 MG 2 tablets with a funmi l Orally Twice a day Active Centrum Silver - Orally Act ariana Rizatriptan Benzoate Active Ondansetron Active Social History Tobacco Use: Social History Observation Description Date Details (start date - stop date) Never Smoker NA - NA Sex Assigned At : Social History Observation Description Sex Assigned At Female Tobacco Use/Smoking Question Answer Notes Patient is a nonsmoker Additional Findings: Tobacco Non-User Aggressive non-smoker Vital Signs Temperature 99.9 degrees Fahrenheit 04/28/20 24 Blood pressure systolic 149 mm Hg 04/28/20 24 Blood pressure diastolic 91 mm Hg 024 Heart Rate 80 /min 04/28/2024 Height 62 in 04/28/2024 Weight 195 lbs 04/28/2024 BMI 35.66 kg/m2 04/28/2024 Encounters Encounter Location Date Provider Diagnosis Shamar Do III, MD [address] [place] [address] [place] [id number] 04/28/2024 Shamar Do Leukopenia, unspecif ied type D72.819 ; Thrombocytopenia D69.6 and Normochromic normocytic anemia D64.9 Assessments Encounter Date Diagnosis (ICD Code) Assessment Notes Treat ment Notes Treatment Clinical Notes 04/28/2024 Leukopenia, unspecif ied type (ICD-10 - D72.819) The value is now in the normal range. She has had no recent infections. 04/28/2024 Thrombocytopenia (ICD-10 - D69.6) Her platelet count has returned to normal and she has had no bleeding or clotting. 04/28/2024 Normochromic normocy tic anemia (ICD-10 - D64.9) The hematocrit and mean cell volume are now normal. Plan Of Treatment Medication Medication Name Sig Start Date Stop Date Notes Vitamin D3 Famotidine Ajovy 225 MG/1.5ML as directed Subcutaneous once a month DULoxetine HCl Methocarbamol Claritin 10 MG 1 tablet Orally Once a day Magnesium 400 MG 2 tablets with a funmi l Orally Twice a day Centrum Silver - Orally Rizatriptan Benzoate Ondansetron Pending Test Test Name Order Date PROFILE, RANDOM (COMPREHENSIVE METABOLIC ) 04/28/2024 CBC w DIFF 04/28/2024 Next Appt Details Follow Up: 1 Year, Reason: 1 year appt review labs Progress Notes * Ju HANKINS MDOB: 1 (64 yo F)Acc No.[id number]:04/28/2024 Progress Notes Patient: Lorna moralesJu Provider: Nate Do MD :1960 A ge:64 Y S ex:Female Date:04/28/2024 Address:[address], [facility] [place], [place] Pcp:Manolo Bonilla Subjective: * Chief Complaints: * P ancytopeniaHypertensionObesityDegenerative disc disease cervical spine * HPI: C OVID-19 Screening: She returns for ongoing follow-up of a history of leukopenia thrombocytopenia and anemia. Recent blood work was available. The CBC was within normal limits. She has had no infections bleedings or transfusion. Her examination today was unremarkable. She will be followed at annual visits. A CBC done at [facility] April 28, 2024 showed a white count of 6.3 with a normal differential, hematocrit 40.5 with a mean cell volume 93.8, platelets 2:15. Questions H ave you experienced fever, chills, cough, sore throat, shortness of breath, difficulty breathing, muscle aches, loss of taste or smell? N o H ave you been exposed to the virus within the last 10 days? N o H ave you travelled internationally in the last 10 days? N o H ave you been exposed to COVID-19 in the past? Y es * ROS: G eneral/Constitutional: pain N magda with range of motion. C hills d enies.?Fatigue a dmits. F ever d enies. E NT: Decreased hearing d enies. R espiratory: Cough d enies. C ardiovascular: Chest pain with exertion d enies. D yspnea on exertion?denies. S hortness of breath d enies. G astrointestinal: Constipation o ccasional. D ecreased appetite d enies. D iarrhea d enies. H eartburn d enies. N ausea d enies. R ectal bleeding d enies. V omiting d enies. H ematology: bruising d enies. p etechiae d enies. S wollen glands n one have been noted. G enitourinary: Frequent urination a t night. M usculoskeletal: Muscle aches d enies. P ainful joints N magda. S ciatica d enies. W eakness d enies. S kin: Itching d enies. R yael d enies. S kin lesion(s)?denies. N eurologic: Difficulty speaking d enies. D izziness d enies.?Headache d enies. L ow back pain d enies. P sychiatric: Depressed mood d enies. * Medical History: * Surgical History: t onsillectomy 1978cholecystectomy 1994cyst removal rtigh hand 2001left shoulder decompression 2007c spine fusion C5-6 [address] Peralta 2017Bowel perforation surgery olostomy 07/2022 * Hospitalization/Major Diagno stic Procedure: [facility] colitis May 2017 * Family History: F ather: alive 81 yrs, Gout, ureterolithiasis. M other: 56 yrs, Complications of alcoholism, head and neck cancer, diagnosed with Cancer. 1 brother(s) , 2 sister(s) - healthy. 2 son(s) , 1 daughter(s) - healthy. . Her mother had malignancy in her throat. One of her sons has gastrointestinal disease. Her daughter has mental illness. * Social History: T obacco Use: T obacco Use/Smoking P atient is a n onsmoker A dditional Findings: Tobacco Non-User A ggressive non-smoker S he lives in [place], [place]. 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 She has been exposed to hydrocarbons. She was born in [place]. He has a long-term significant other named Brandon. * Medications: T akingClaritin 10 MG Tablet 1 tablet Orally Once a dayMagnesium 400 MG Tablet 2 tablets with a meal Orally Twice a dayCentrum Silver - Tablet Orally Rizatriptan Benzoate Ondansetron Famotidine Ajovy 225 MG/1.5ML Solution Auto-injector as directed Subcutaneous , Notes: once a monthDULoxetine HCl Methocarbamol Vitamin D3 Medication List reviewed and reconciled with the patientTaking Claritin 10 MG Tablet 1 tablet Orally Once a dayTaking Magnesium 400 MG Tablet 2 tablets with a meal Orally Twice a dayTaking Centrum Silver - Tablet Orally Taking Rizatriptan Benzoate Taking Ondansetron Taking Famotidine Taking Ajovy 225 MG/1.5ML Solution Auto-injector as directed Subcutaneous , Notes: once a monthTaking DULoxetine HCl Taking Methocarbamol Taking Vitamin D3 Medication List reviewed and reconciled with the patient * Allergies: O meprazoleUltramno[Allergies Verified] Objective: * Vitals: H t: 62, Wt: 195, BMI:35.66, BP: 149/91, HR: 80, Temp: 99.9, Wt-k.45. * Examination: G eneral Examination: GENERAL APPEARANCE: p lejose, well nourished, well developed, in no acute distress, calm and relaxed , obese , woman. HEAD: a traumatic, normocephalic. EYES: e ely, perrla, anicteric, conjugate. EARS: n ormal. NOSE: s eptum intact. ORAL CAVITY: n ormal, unremarkable. NECK/THYROID: n o jugular venous distention, no carotid bruit, thyroid normal. LYMPH NODES: n o enlarged lymph nodes,spleen normal. SKIN: n o suspicious lesions, anicteric. HEART: n o clicks, gallops, murmurs, or rubs, regular rhythm, S1, S2 normal, no s3, or vascular bruits. LUNGS: c lear to auscultation . BREASTS: n ot examined. ABDOMEN: b owel sounds normal, no ascites, no organomegaly, no mass , centripital obesity. RECTAL EXAM: n ot examined. MUSCULOSKELETAL: e xtremities unremarkable, no clubbing, cyanosis or edema, Mild decreased range of motion of neck. PERIPHERAL PULSES: n ormal. NEUROLOGIC: a lert and oriented, cranial nerves 2-12 grossly intact, deep tendon reflexes 2+ symmetrical, motor strength normal upper and lower extremities, sensory exam intact. PSYCH: a lert, oriented. Assessment: * Assessment: 1. L eukopenia, unspecified type - D72.819 (Primary), The value is now in the normal range. She has had no recent infections. 2 . T hrombocytopenia - D69.6, Her platelet count has returned to normal and she has had no bleeding or clotting. 3 . N ormochromic normocytic anemia - D64.9, The hematocrit and mean cell volume are now normal. Plan: * Treatment: 2. T hrombocytopenia L AB: PROFILE, RANDOM (COMPREHENSIVE METABOLIC) L AB: CBC w DIFF 3. N ormochromic normocytic anemia L AB: PROFILE, RANDOM (COMPREHENSIVE METABOLIC) L AB: CBC w DIFF 4. O thers Continue Claritin Tablet, 10 MG, 1 tablet, Orally, Once a day; C ontinue Magnesium Tablet, 400 MG, 2 tablets with a meal, Orally, Twice a day; C ontinue Rizatriptan Benzoate; C ontinue Ondansetron; C ontinue Famotidine; C ontinue Ajovy Solution Auto-injector, 225 MG/1.5ML, as directed, Subcutaneous, Notes: once a month; C ontinue DULoxetine HCl; C ontinue Methocarbamol. * Procedure Codes: * Preventive Medicine: Counseling: C are goal follow-up plan: Counseling for abnormal BMI given Y es Above Normal BMI Follow-up D ietary management education, guidance, and counseling, Dietary needs education, Exercise promotion: strength training, Exercise promotion: stretching, Feeding regime, Giving encouragement to exercise, Lifestyle education regarding diet, Nutrition / feeding management, Nutrition therapy, Prescribed activity/exercise education, Prescribed diet education, Prescribed dietary intake, Special diet education, Weight monitoring , Intervention, Order not done: Medical or Other reason not done * Follow Up: 1 Year (Reason: 1 year appt review labs ) * Images: * Sign off status: Completed true * Provider: Nate Do MD Date: 04/28/2024 Generated for Jakob danielle/Juan/eTransmitting on: 09/12/2024 09:01 AM EST History and Physical Notes * HPI (History of Present Illness) Category Sub-Category Detail Notes COVID-19 Screening Questions Have you had any new onset fever, chills, cough, congestion, sore throat, shortness of breath, muscle aches?: No Have you been exposed to the virus withi n the last 10 days?: No Have you travelled internationally in last 10 days?: No Have you been exposed to COVID-19 in the past?: Yes Examination Category Sub-Category Detail Notes General Examination GENERAL APPEARANCE: pleasant , well nourished, well developed, in no acute distress, calm and relaxed , obese , woman HEAD: atraumatic, normocep halic EYES: eomi, perrla, anicte gilda, conjugate EARS: normal NOSE: septum intact NECK/THYROID: no jugular venous di stention, no carotid bruit, thyroid normal HEART: no clicks, gallops, murmurs, or rubs, regular rhythm, S1, S2 normal, no s3, or vascular bruits LUNGS: clear to auscultatio n ABDOMEN: bowel sounds normal, no ascites, no organomegaly, no mass , centripital obesity NEUROLOGIC: alert and oriented, cranial nerves 2-12 grossly intact, deep tendon reflexes 2+ symmetrical, motor strength normal upper and lower extremities, sensory exam intact SKIN: no suspicious lesion s, anicteric PERIPHERAL PULSES: normal BREASTS: not examined MUSCULOSKELETAL: extremities unremark able, no clubbing, cyanosis or edema, Mild decreased range of motion of neck LYMPH NODES: no enlarged lymph no linda,spleen normal RECTAL EXAM: not examined PSYCH: alert, oriented ORAL CAVITY: normal, unremarkable
--- OUTSIDE RECORDS SUMMARY | 2025-04-29 12:00 | XMS_ITS ---
Author Organization Shamar Do III, MD Address [address] [place] [address] [place] [address] Care Team Providers Care Communications Equipment Supervisor Name Role Phone Irene Manolo Primary Care [...] Date Provider Diagnosis Shamar Do III, MD [address] [place] [address] [place] [address] 04/29/2025 Shamar Do Leukopenia, unspecified type D72.819 [...] * Ju HANKINS MDOB: (65 yo F)Acc No.[id number]:04/29/2025 Progress Notes Patient: Ju BHATT Provider: Nate Do MD :1960 A ge:65 Y S ex:Female Date:04/29/2025 Address:[address] Pcp:Manolo Bonilla Subjective: * Chief Complaints: * [...] Colostomy 07/2022. * Hospitalization/Major Diagno stic Procedure: [facility] colitis May 2017. * Family History: F [...] A ggressive non-smoker S he lives in [place], [place]. 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 She has been exposed to hydrocarbons. She was born in [place]. He has a long-term significant other [...] 0 04/29/2025 Generated for Jakob danielle/Juan/Latosha on: 09/12/2024 09:01 AM EST History and [...]
--- OUTSIDE RECORDS SUMMARY | 2025-05-25 13:30 | XMS_ITS ---
Author Organization Shamar Do III, MD Address [address] [place] [address] [place] [address] Care Team Providers Care Rn Intern Name Role Phone Manolo Bonilla Primary Care Provider Unavailab Dr. Shamar Munguia III Unavailable REASON FOR VISIT Follow up Social History Sex Assigned At : Social History Observation Description Sex Assigned At Female Encounters Encounter Location Date Provider Diagnosis Shamar Do III, MD [address] [place] [address] [place] [phone] 05/25/2025 Shamar Do Plan Of Treatment No Information Progress Notes * Ju HANKINS MDOB: (65 yo F)Acc No.[id number]:05/25/2025 Progress Notes Patient: Lorna ROSEJu Provider: Nate Do MD :1960 A ge:65 Y S ex:Female Date:05/25/2025 Address[id number] Pcp:Manolo Bonilla Subjective: * Chief Complaints: * [...] * Provider: Nate Do MD Date: 0 05/25/2025 Generated for Jakob danielle/Juan/Mioitting on: 1 09/12/2024 09:01 AM EST
--- OUTSIDE RECORDS SUMMARY | 2025-05-27 10:00 | XMS_ITS ---
Author Organization Shamar Do III, MD Address [address] [place] [address] [place] [address] Care Team Providers Care Director Of Science Name Role Phone Manolo Bonilla Primary Care Provider Unavailab Dr. Shamar Munguia III Unavailable [phone] Allergies Allergen (clinical drug ingredient) Drug/Non Drug Allergy documented on EMR Reaction Allergy Type Onset Date Status tramadol Ultram Unknown Drug Allergy Active omeprazole Omeprazole Unknown Drug Allergy Activ e REASON FOR VISIT Leukopenic, Thrombocytopenia, Normochromic normocytic anemia, Cervical radiculopathy, Hypertension Medications Medication SIG (Take, Route, Frequency, Duration) Notes Start Date End Date Status DULoxetine HCl Activ e Ajovy 225 MG/1.5ML as directed Subcutaneous once a month Active Famotidine Active Methocarbamol Active Ondansetron Active Claritin 10 MG 1 tablet Orally Once a day Active Vitamin D3 Active Rizatriptan Benzoate Active Centrum Silver - Orally Act ariana Magnesium 400 MG 2 tablets with a [...] Tobacco Non-User Aggressive non-smoker Vital Signs Temperature 97.2 degrees Fahrenheit 05/27/20 25 Blood pressure systolic 140 mm Hg 05/27/20 25 Blood pressure diastolic 79 mm Hg 025 Heart Rate 63 /min 05/27/2025 Height 62 in 05/27/2025 Weight 182 lbs 05/27/2025 BMI 33.28 kg/m2 05/27/2025 Encounters Encounter Location Date Provider Diagnosis Shamar Do III, MD [address] [place] [address] [place] [address] 05/27/2025 Shamar Do Leukopenia, unspecif ied type D72.819 ; Thrombocytopenia D69.6 ; Normochromic normocytic anemia D64.9 ; HPV (human papilloma virus) infection B97.7 ; Degenerative disc disease, cervical M50.30 and Obesity (BMI 30-39.9) E66.9 Assessments Encounter Date Diagnosis (ICD Code) Assessment Notes Treat ment Notes Treatment Clinical Notes 05/27/2025 Leukopenia, unspecified type (ICD-10 - D72.819) The value is now in the normal range. She has had no recent infections. 05/27/2025 Thrombocytopenia (ICD-10 - D69.6) Her platelet count has returned to normal and she has had no bleeding or clotting. 05/27/2025 Normochromic normocytic anemia (ICD-10 - D64.9) The hematocrit and mean cell volume are now normal. 05/27/2025 HPV (human papilloma virus) infection (ICD-10 - B97.7) The HPV DNA was found to thousand 12, but not in 2015. I strongly recommended she continue routine and regular visits with STATISTICAL DEVELOPER. 05/27/2025 Degenerative disc disease, cervical (ICD-10 - M50.30) 05/27/2025 Obesity (BMI 30-39.9 ) (ICD-10 - E66.9) Her weight has been volatile. Her body mass index is now 32.7. We have discussed lifestyle modification diet and nutrition at length. Plan Of Treatment Medication Medication Name Sig Start Date Stop Date Notes DULoxetine HCl Ajovy 225 MG/1.5ML as directed Subcutaneous once a month Famotidine Methocarbamol Ondansetron Claritin 10 MG 1 tablet Orally Once a day Vitamin D3 Rizatriptan Benzoate Centrum Silver - Orally Magnesium 400 MG 2 tablets with a funmi l Orally Twice a day Next Appt Details Follow Up: prn, Reason: ov Progress Notes * Ju HANKINS MDOB: 1 (65 yo F)Acc No.[id number]:05/27/2025 Progress Notes Patient: Ju BHATT Provider: Nate Do MD :1960 A ge:65 Y S ex:Female Date:05/27/2025 Address:[address], [place] Pcp:Manolo Bonilla Subjective: * Chief Complaints: * L eukopenicThrombocytopeniaNormochromic normocytic anemiaCervical radiculopathyHypertension * HPI: C OVID-19 Screening: She is seen periodically for a scheduled visit is because of pancytopenia. On recent blood work her white blood cell count hematocrit hemoglobin and platelet count are now normal. The problem has resolved. She says she is working 52 hours a week without complaint. In March of this year her had coronary artery bypass surgery but has recovered. She is trying to lose weight. She is seen regularly by primary care. She is going to be seen on a when necessary basis from now on. Questions H ave you had any new [...] enies. D iarrhea d enies. H eartburn o ccasional. N ausea d enies. R ectal bleeding [...] Medical History: * Surgical History: t onsillectomy 1979cholecystectomy 1995cyst removal rtigh hand 2001left shoulder decompression 2007c spine fusion C5-6 [address] Peralta 2017Bowel perforation surgery 2Colostomy 07/2022 * Hospitalization/Major Diagno stic Procedure: [facility] colitis May 2017 * Family History: F [...] T obacco Use: T obacco Use/Smoking P atchaim is a n onsmoker A dditional Findings: Tobacco Non-User A ggressive non-smoker S he lives in [place], [place]. 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 She has been exposed to hydrocarbons. She was born in [place]. He has a long-term significant other named Brandon. * Medications: T akingClaritin 10 MG Tablet 1 tablet Orally Once a day Magnesium 400 MG Tablet 2 tablets with a meal Orally Twice a day Centrum Silver - Tablet Orally Rizatriptan Benzoate Ondansetron Famotidine Ajovy 225 MG/1.5ML Solution Auto-injector as directed Subcutaneous , Notes to Pharmacist: once a monthDULoxetine HCl Methocarbamol Vitamin D3 Medication List reviewed and reconciled with the patientTaking Claritin 10 MG Tablet 1 tablet Orally Once a day Taking Magnesium 400 MG Tablet 2 tablets with a meal Orally Twice a day Taking Centrum Silver - Tablet Orally Taking Rizatriptan Benzoate Taking Ondansetron Taking Famotidine Taking Ajovy 225 MG/1.5ML Solution Auto-injector as directed Subcutaneous , Notes to Pharmacist: once a monthTaking DULoxetine HCl Taking Methocarbamol Taking Vitamin D3 Medication List reviewed and reconciled with the patient * Allergies: O meprazoleUltramno[Allergies Verified] Objective: * Vitals: H t: 62, Wt: 182, BMI:33.28, BP: 140/79, HR: 63, Temp: 97.2, Wt-k.55. * Examination: G eneral Examination: GENERAL APPEARANCE: p leasant, well nourished, well developed, in no acute distress, calm and relaxed: obese: woman. HEAD: a traumatic, normocephalic. EYES: e [...] LUNGS: c lear to auscultation . BREASTS: N ot examined. ABDOMEN: b owel sounds normal, no ascites, no organomegaly, no mass: centripital obesity. RECTAL EXAM: n ot examined. MUSCULOSKELETAL: e xtremities unremarkable, no clubbing, cyanosis or edema. PERIPHERAL PULSES: n ormal. NEUROLOGIC: a lert and oriented, cranial nerves 2-12 grossly intact, deep tendon reflexes 2+ symmetrical, motor strength normal upper and lower extremities, sensory exam intact. PSYCH: a lert, oriented. Assessment: * Assessment: 1. L eukopenia, unspecified type - D72.819 (Primary) N otes :The value is now in the normal range. She has had no recent infections. 2 . T hrombocytopenia - D69.6 N otes :Her platelet count has returned to normal and she has had no bleeding or clotting. 3 . N ormochromic normocytic anemia - D64.9 N otes :The hematocrit and mean cell volume are now normal. 4 . H PV (human papilloma virus) infection - B97.7 N otes :The HPV DNA was found to thousand 12, but not in 2015. I strongly recommended she continue routine and regular visits with STATISTICAL DEVELOPER. 5 . D egenerative disc disease, cervical - M50.30 6 . O besity (BMI 30-39.9) - E66.9 N otes :Her weight has been volatile. Her body mass index is now 32.7. We have discussed lifestyle modification diet and nutrition at length. Plan: * Treatment: 2. O thers Continue [...] Other reason not done * Follow Up: p rn (Reason: ov) * Images: * Sign off status: Completed true * Provider: Nate Do MD Date: 0 05/27/2025 Generated for Jakob danielle/Juan/iMoitting on: 09/12/2024 09:00 AM EST History and Physical Notes * HPI (History of Present Illness) Category Sub-Category Detail Notes COVID-19 Screening Questions Have you had any new onset fever, chills, cough, congestion, sore throat, shortness of breath, muscle aches?: No Examination Category Sub-Category Detail Notes General Examination GENERAL APPEARANCE: pleasant , well nourished, well developed, in no acute distress, calm and relaxed: obese: woman HEAD: atraumatic, normocep halic EYES: eomi, perrla, anicte gilda, conjugate EARS: normal NOSE: septum intact NECK/THYROID: no jugular venous di stention, no carotid bruit, thyroid normal HEART: no clicks, gallops, murmurs, or rubs, regular rhythm, S1, S2 normal, no s3, or vascular bruits LUNGS: clear to auscultatio n ABDOMEN: bowel sounds normal, no ascites, no organomegaly, no mass: centripital obesity NEUROLOGIC: alert and oriented, cranial nerves 2-12 grossly intact, deep tendon reflexes 2+ symmetrical, motor strength normal upper and lower extremities, sensory exam intact SKIN: no suspicious lesion s, anicteric PERIPHERAL PULSES: normal BREASTS: Not examined MUSCULOSKELETAL: extremities unremark able, no clubbing, cyanosis or edema LYMPH NODES: no enlarged lymph no linda,spleen normal RECTAL EXAM: not examined PSYCH: alert, oriented ORAL CAVITY: normal, unremarkable
--- OUTSIDE RECORDS SUMMARY | 2025-07-13 09:00 | XMS_ITS | Patient Health Record ---
Author Organization Shamar Do III, MD Address [address] [place] [address] DR MELARA Abad MARCOS DRAPER [id number] Care Team Providers Care Signal And Communications Maintainer Name Role Phone Manolo Bonilla Primary Care [...] Subcutaneous once a month Active Famotidine Active Claritin 10 MG 1 tablet Orally Once a day Active Vitamin D3 Active Methocarbamol Active Ondansetron Active Rizatriptan Benzoate Active Centrum Silver - [...] Problem Status W/U Status Risk Notes Problem 574740340 Thrombocytopenia (D69.6) Active confirmed Her platelet count has returned to normal and she has had no bleeding or clotting. Problem 836172234 Obesity (BMI 30-39.9) (E66.9) Active confirmed Her weight has been volatile. Her body mass index is now 32.7. We have discussed lifestyle modification diet and nutrition at length. Problem 49716646 Essential hypertension (I10) Active confirmed Her blood pressure is currently normal and no change in her regimen is necessary. The value is 122/82. I recommended weight loss and sodium restriction. Problem 65918800 Degenerative dis c disease, cervical (M50.30) Active confirmed Problem 068982931 History of cholecystectomy (Z90.49) Active confirmed Problem 85534020 Leukopenia, unspecified type (D72.819) Active confirmed The value is now in the normal range. She has had no recent infections. Problem 35977772 Normochromic normocytic anemia (D64.9) Active confirmed The hematocrit and mean cell volume are now normal. 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 I strongly recommended she continue routine and regular visits with [facility]. Problem 041822942 H/O tubal ligati on (Z98.51) Active confirmed Vital Signs Heart Rate 63 /min 05/27/2025 Temperature 97.2 degrees Fahrenheit 05/27/2025 Blood pressure diastolic 79 mm Hg 05/27/2025 Height 62 in 05/27/2025 Blood pressure systolic 140 mm Hg 05/27/2025 Weight 182 lbs 05/27/2025 BMI 33.28 kg/m2 05/27/2025 Encounters Encounter Location Date Provider Diagnosis Shamar Do III, MD [address] [place] [address] DR TERRAZAS, MARCOS [id number] 05/27/2025 Shamar Do Leukopenia, unspecif ied type D72.819 ; Thrombocytopenia D69.6 ; Normochromic normocytic anemia D64.9 ; HPV (human papilloma virus) infection B97.7 ; Degenerative disc disease, cervical M50.30 and Obesity (BMI 30-39.9) E66.9 Assessments Encounter Date Diagnosis (ICD Code) Assessment Notes Treat ment Notes Treatment Clinical Notes 05/27/2025 Thrombocytopenia (ICD-10 - D69.6) Her platelet count has returned to normal and she has had no bleeding or clotting. 05/27/2025 Leukopenia, unspecified type (ICD-10 - D72.819) The value is now in the normal range. She has had no recent infections. 05/27/2025 Normochromic normocytic anemia (ICD-10 - D64.9) The hematocrit and mean cell volume are now normal. 05/27/2025 HPV (human papilloma virus) infection (ICD-10 - B97.7) The HPV DNA was found to thousand 12, but not in 2015. I strongly recommended she continue routine and regular visits with [facility]. 05/27/2025 Degenerative disc disease, cervical (ICD-10 - M50.30) 05/27/2025 Obesity (BMI 30-39.9 ) (ICD-10 - E66.9) Her weight has been volatile. Her body mass index is now 32.7. We have discussed lifestyle modification diet and nutrition at length. Plan Of Treatment Pending Test Test Name [...] DIFFERENTIAL 09/17/2018 CBC WITH AUTO DIFF 10/22/2023 Insurance Providers Payer Name Payer Address Payer Phone Subscriber Number Group Number Insured Name Patient Relationship to Insured Coverage Start Date Coverage End Date [facility] [address] [place] [phone] [id number] Ju Hankins Self - patient is the insured Medical (General) History Medical History History ICD Code neutropenia normochromic normocytic anemia thrombocytopenia colitis history of obesity Clostridium difficile infection x 3 hypertension chronic low back pain secondary to herni ated disc positive high riskHPVDNA 2011, -2014 degenerative disc disease. Neck 3 unremarkable spleen on abdominal CT scan done 2016 Surgical History Surgery Date(Month/Year) Colostomy 07/2022 Bowel perforation surgery 05/[address] Peralta 2016 c spine fusion C5-6 2009 left shoulder decompression 2007 cyst removal rtigh hand 2000 cholecystectomy 1994 tonsillectomy 1979 Hospitalization History Reason Date(Month/Year) [facility] colitis May 2017
--- OUTSIDE RECORDS SUMMARY | 2025-07-13 09:00 | XMS_ITS | Clinical Summary ---
Author Organization [facility] Address [address] [place] [address] Phone Care Team Providers Care Manager Metal Name Role Phone Manolo Bonilla MD Primary Care Provider Allergies Active Allergy Reactions Criticality Noted Date Comments Ibuprofen Diarrhea,Weight Gain Low 08/01/2021 Nsaids (Non-Steroidal Anti-Inflammatory Drug) 02/07/2023 Cant take due to stomach Omeprazole Nausea and/or Vomiting 08/09/2017 Tramadol Itching 08/09/2017 Medications multivitamin-mineral surveying technician als-lutein (CENTRUM SILVER) Tab Take 1 tablet by mouth daily. Active rizatriptan (MAXALT) 10 MG tablet Take 10 mg by mouth daily as needed. 11/30/19 22 Active ondansetron (ZOFRAN-ODT) [address] 1 TABLET ON THE TONGUE AND ALLOW TO DISSOLVE NEEDED ORALLY ONCE A DAY 11/30/19 22 Active AJOVY SYRINGE 225 mg/1.5 mL subcutaneous syringe Inject 225 mg under the skin every 30 (thirty) days. 03/17/20 22 Active DULoxetine (CYMBALTA) 20 MG capsule Take 30 mg by mouth 2 (two) times a day. Patient taking 30 mg bid 02/03/20 23 Active magnesium oxide 400 mg magnesium Tab Take 800 mg by mouth 2 (two) times a day. Active pantoprazole (PROTONIX) 40 MG tablet Take 1 tablet by mouth every morning. 06/29/20 23 Active MOUNJARO 2.5 mg/0.5 mL PnIj subcutaneous pen Inject 2.5 mg under the skin once a week. 04/14/20 25 Active cetirizine (ZYRTEC) 10 MG tablet Take 10 mg by mouth. 03/30/20 Active EPINEPHrine 0.3 mg/0.3 mL auto-injector Inject 0.3 mg into the muscle. 04/20/20 Active fexofenadine (TRUMAN) 60 MG tablet Take 60 mg by mouth daily. Active methocarbamoL (ROBAXIN) 750 MG tabletIndications: Fibromyalgia TAKE 1 TABLET BY MOUTH 3 TIMES A DAY. 90 tablet 2 07/03/20 Active methocarbamoL (ROBAXIN) 750 MG tabletIndications: Fibromyalgia TAKE 1 TABLET BY MOUTH 3 TIMES A DAY. 90 tablet 2 04/10/20 025 Discontinued Active Problems Problem Noted Date Diagnosed Date Family history of Mccoy syndrome 06/09/2025 Assessment & Plan (06/09/2025 11:37 AM EDT): Declined referral for genetic testing Type 2 diabetes mellitus 01/28/2025 Class 2 severe obesity due t o excess calories with serious comorbidity and body mass index (BMI) of 35.0 to 35.9 in adult 08/04/2024 Assessment & Plan (06/09/2025 11:21 AM EDT): Risk factor for endometrial ca Assessment & Plan (01/28/2025 3:18 PM EDT): [...] writing. Provider: Tory Cordova MD Patient: Arcadio Pereyra : 1960 Date: 02/07/2023 Migraine without [...] as needed and tolerated. Consider checkup with aerospace medicine physician versus fleet salesperson if not better. On SSRI therapy 09/20/2020 [...] and dietary modifications as instructed by treating service desk specialist. Assessment & Plan (12/17/2021 2:48 PM EDT): Continue treatment with mesalamine (Apriso) and dietary modifications as instructed by treating service desk specialist. Assessment & Plan (11/22/2020 9:04 AM EDT): Continue treatment with mesalamine (Apriso) and dietary modifications as instructed by treating service desk specialist. Assessment & Plan (09/20/2020 9:03 AM EST): Continue treatment with mesalamine (Apriso) and dietary modifications as instructed by treating service desk specialist. Assessment & Plan (07/12/2020 9:14 AM EST): Continue treatment with mesalamine (Apriso) and dietary modifications as instructed by treating service desk specialist. Assessment & Plan (03/16/2020 11:49 AM EDT): Continue treatment with mesalamine (Apriso) and dietary modifications as instructed by treating service desk specialist. Assessment & Plan (12/25/2019 9:04 AM EDT): Continue treatment with mesalamine (Apriso) and dietary modifications as instructed by treating service desk specialist. Trochanteric bursitis 02/13/2019 Chronic gastritis without bleeding 10/10/2018 Assessment & Plan (03/16/2020 11:49 AM EDT): New close follow-up with service desk specialist exactly as scheduled. Avoid late, large, spicy [...] health issues from the beginning of 2023 calendar- decided to forfeit it now. Get the [...] health issues from the beginning of 2023 calendar- decided to forfeit it now. Get the [...] asks for confirmatory letter to her company's [employer] to accommodate request for OSHA approved stool. [...] full-time and asks for confirmatory letter to [employer]'s [employer] to accommodate request for OSHA approved stool. [...] and asks for confirmatory letter to her [employer]'s HR to accommodate request for OSHA approved [...] and asks for confirmatory letter to her [employer]'s HR to accommodate request for OSHA approved [...] benefit from reading book written by Dr Leeryo holt addressing management strategies for patients with [...] Monitor periodically-no additional worrisome abnormalities detected by fur pointer/oncologist-Dr. Do during summer 2017 consultation-per patient report Encounters Date Type Department Care Team Description 07/03/2025 Refill [facility] Rheumatology [address] [place] [address] Tory Cordova MD Medication Refill 06/09/2025 11:00 AM EDT Office Visit [facility] [address] [place] [address] [place] [address] Leticia Gonzalez MD Postmenopausal bleeding (Primary Dx); Class 2 severe obesity due to excess calories with serious comorbidity and body mass index (BMI) of 35.0 to 35.9 in adult; Family history of Mccoy syndrome; Screening for cervical cancer from Last 3 Months Immunizations Immunization Administration Dates Next Due COVID-19 (Pre-07/02) Pfizer Vaccine, mRNA, PF ,12/20/2020 Influenza Quadrivalent Preservative Free IM 05/12 Family History Medical History Relation Comments Breast cancer Maternal Cousin 1 Colon cancer Maternal Cousin 2 Breast cancer Maternal Grandmother Throat cancer Mother Hereditary Non-Polyposis Col orectal Cancer (Mccoy Syndrome) Niece Prostate cancer Paternal Grandfather Hereditary Non-Polyposis Col orectal Cancer (Mccoy Syndrome) Sister 1 Skin cancer Sister 1 Endometriosis Sister 2 Hysterectomy Relation Status Comments Maternal Cousin 1 Maternal Cousin 2 Maternal Grandmother Mother Niece Alive Paternal Grandfather Sister 1 Sister 2 Alive Social History Tobacco Use Types Packs/Day Years [...] Sign Reading Time Taken Comments Blood Pressure 134/84 06/09/2025 11:10 AM EDT Pulse 84 01/28/2025 2:44 PM EDT Temperature 37.1 C (98.8 F) 11/22/2020 8:44 AM EDT Respiratory Rate - - Oxygen Saturation 97% 03/31/2024 9:54 AM EDT Inhaled Oxygen Concentration - - Weight 82.6 kg (182 lb 3.2 oz) 06/09/2025 11:10 AM EDT Height 157.5 cm (5' 2.01 ) 01/28/2025 2:44 PM ED T Body Mass Index 33.32 01/28/2025 2:44 PM EDT Plan of Treatment Upcoming Encounters Date Type Department Care Team (Late st Contact Info) Description 08/10/2025 8:30 AM EST Office Visit [facility] Rheumatology [address] [place] [address] Tory Cordova MD [address] [place] [address], [address] [place] [address] [email or web address] Health Maintenance Due Date Last Done Comments Adult Td,Tdap Booster 1961 DEPRESSION SCREENING 1973 SMOKING Hx and SMOKELESS TOBACCO SCREENING 1974 HEPATITIS C SCREENING 1979 HIV ONE-TIME SCREENING (18-65 YEARS) 1979 LIPID PANEL 1979 MAMMOGRAM 2001 HEMOGLOBIN A1C 12/22/2020 06/23/2020 DIABETIC EYE EXAM 01/28/2025 URINE MICROALBUMIN/CREATININE RATIO 01/28/2025 BLOOD PRESSURE 12/07/2025 06/09/2025 PAP SMEAR 06/09/2028 06/09/2025, 11/09, 11/12/2019 ZOSTER VACCINES Completed 08/16/2020, 05/26/2020 RSV VACCINE Completed 05/29/2024, 10/18/2023 COVID-19 VACCINE Completed 05/29/2025, , 06/06/2023, Additional history exists INFLUENZA VACCINE Completed 05/29/2025, , 06/06/2023, Additional history exists PNEUMOCOCCAL VACCINES (50+ years) Completed 05/29/2025, 01/02/2017 HEPATITIS A VACCINES Aged Out No long [...] Date/Time Associated Diagnosis Comments PAP TEST Routine 06/09/2025 12:00 AM EDT ANATOMIC PATHOLOGY Routine 06/09/2025 12 :00 AM EDT OUTSIDE LAB 05/13/2025 OUTSIDE HEMOGLOBIN A1C Routine 06/23/2020 from Last 3 Months or Most Recently Relevant to Health Maintenance Results * Pap Test (06/09/2025 12:00 AM EDT) Report [address] [address] Hide Stretcher Hand: Bro Cox MD SURVEYING CREW RODMAN Cytology Report FINAL DIAGNOSIS A. PAP SMEAR (THIN PREP) CE: SPECIMEN ADEQUACY: Satisfactory for evaluation; transformation zone present. INTERPRETATION: NEGATIVE FOR INTRAEPITHELIAL LESION OR MALIGNANCY. This specimen was analyzed by the automated ThinPrep Imaging System (JRKICKZ.) and the selected sweet were reviewed by a commercial green retrofit architect. Electronically Signed Out By: OSBALDO Biggs(ASCP) OSBALDO Poole(ASCP) The Pap test is a screening test primarily for squamous cancers and precursors and has associated false-negative and false-positive results. New technologies such as liquid-based preparations may decrease but will not eliminate all false-negative results. Regular sampling and follow-up of unexplained clinical signs and symptoms are recommended to minimize false negative results. PROCEDURES/ADDENDA HPV Testing (Requested) Ordered Date: 06/10/2025 A. PAP SMEAR (THIN PREP) CE: High-risk HPV Panel w/ extended genotyping NEG HPV 16-NEG HPV 18-NEG HPV 45-NEG HPV 33/58-NEG HPV 31-NEG HPV 56/59/66-NEG HPV 51-NEG HPV 52-NEG HPV 35/39/68-NEG Performed by real-time polymerase chain reaction (PCR) at [facility], [address] [place] [address] using the FDA-approved Metaconomy Onclarity HPV Assay with extended genotyping. Uses of the assay in scenarios other than those approved by the FDA should be considered off-label use. The accuracy and precision of this test for all other off-label specimen sources has been verified in the Cytopathology Laboratory of the [facility] and has not been cleared or approved by the U.S. Food and Drug Administration. Clinical correlation is advised. The assay assesses the E6/E7 DNA target and utilizes human beta globin as an internal control. Cytology and HPV testing are screening assays and should not be used as the sole means of detecting cancer. False-positives and false-negatives can occur. CLINICAL HISTORY Date of Last Menstrual Period: Not Provided Menstrual History: Post Menopausal Bleeding, PM Other Clinical Conditions: Diagnostic Pap: Q SPECIMEN SOURCE A: PAP SMEAR (THIN PREP) CE Patient Name: ARCADIO PEREYRA : 1960 (Age: 65) Sex: F Institution: [facility] Location: [facility] Date of Collection: 06/09/2025 Date of Reported: 06/16/2025 16:47 Results to: Leticia Gonzalez MD [facility] Final Diagnosis A. PAP SMEAR (THIN PREP) CE: SPECIMEN ADEQUACY: Satisfactory for evaluation; transformation zone present. INTERPRETATION: NEGATIVE FOR INTRAEPITHELIAL LESION OR MALIGNANCY. This specimen was analyzed by the automated ThinPrep Imaging System (JRKICKZ.) and the selected sweet were reviewed by a commercial green retrofit architect. [facility] Results\Inter pretation A. PAP SMEAR (THIN PREP) CE: High-risk HPV Panel w/ extended genotyping NEG HPV 16-NEG HPV 18-NEG HPV 45-NEG HPV 33/58-NEG HPV 31-NEG HPV 56/59/66-NEG HPV 51-NEG HPV 52-NEG HPV 35/39/68-NEG Performed by real-time polymerase chain reaction (PCR) at [facility], [address] [place] [address], [place] using the FDA-approved BD Onclarity HPV Assay with extended genotyping. Uses of the assay in scenarios other than those approved by the FDA should be considered off-label use. The accuracy and precision of this test for all other off-label specimen sources has been verified in the Cytopathology Laboratory of the [facility] and has not been cleared or approved by the U.S. Food and Drug Administration. Clinical correlation is advised. The assay assesses the E6/E7 DNA target and utilizes human beta globin as an internal control. Cytology and HPV testing are screening assays and should not be used as the sole means of detecting cancer. False-positives and false-negatives can occur. [facility] Conversion Type (Conversion Source) 06/09/2025 06/10/2025 8:11 AM EDT us Leticia Gonzalez MD CYTOLOGY ORDERABLES Edited Result - Final [address] [address] * Anatomic Pathology (Non-MGB) (06/09/2025 12:00 AM EDT) Report [address] [address] Hide Stretcher Hand: Bro Cox MD Surgical Pathology Report FINAL PATHOLOGIC DIAGNOSIS: ENDOMETRIAL BIOPSY: Inactive endometrium with stromal breakdown. Electronically Signed Out By Vidya Baum MD By his/her signature above, the pathologist listed as making the Final Diagnosis certifies that he/she has personally reviewed this case and confirmed or corrected the diagnosis. CLINICAL HISTORY Postmenopausal bleeding (N95.0) SPECIMENS SUBMITTED: A: ENDOMETRIAL BIOPSY GROSS DESCRIPTION ENDOMETRIAL BIOPSY: Received in formalin is a 0.7 x 0.5 x 0.4 cm aggregate of dark red blood clot admixed with irregular vuong-pink soft tissue which is submitted in toto in a single cassette labeled A1. Grossed by: RODOLFO Bunch, PA(ASCP) [id number] 06/10/2025 Grossing Staff: [id number] Patient Name: ARCADIO PEREYRA : 1960 (Age: 65) Sex: F Institution: [facility] Location: [facility] Date of Operation: 06/09/2025 Date of Reported: 06/11/2025 15:31 Results To: Leticia Bonilla MD [facility] Clinical History Postmenopausal bleeding (N95.0) [facility] Final Diagnosis ENDOMETRIAL BIOPSY: Inactive endometrium with stromal breakdown. [facility] Gross Description ENDOMETRIAL BIOPSY: Received in formalin is a 0.7 x 0.5 x 0.4 cm aggregate of dark red blood clot admixed with irregular vuong-pink soft tissue which is submitted in toto in a single cassette labeled A1. Grossed by: RODOLFO Bunch, PA(ASCP) [facility] Conversion Type (Endometrium) 06/09/2025 06/10/2025 6:11 AM EDT us Leticia Gonzalez MD LAB PATHOLOGY ORDERABLES E dited Result - Final [address] [address] * Outside Lab (05/13/2025) us Scanning Interface Provider LAB BLOOD BKR ORDERA BLES Final Result * Outside HbA1c (06/23/2020) us Tory Cordova MD LAB BLOOD ORDERABLES Fin al Result from Last 3 Months or Most Recently Relevant to Health Maintenance Insurance [facility] [employer] DIRECT [facility] [address] [place] [address] [place] [address] [place] [address] [place] [address] [employer] [facility] DIRECT Care Teams Manager Metal Relationship Specialty Start Date End Date Manolo Bonilla MD PCP - General Family Medicine 08/10/23 Additional Source Comments The information contained in this document represents components of the legal health record. It is not the complete legal health record.[facility]
--- OUTSIDE RECORDS SUMMARY | 2025-07-13 09:01 | XMS_ITS | Patient Health Record ---
Author Organization [facility] Address [address] [place] [address] Care Team Providers Care Chief Hydroelectric Station Operator Name Role Phone Aren (RETIRED) Deandre [...] MG TAKE 1 TABLET BY MOUTH EVERY DAY; Duration: 90 days Active DULoxetine HCl 60 MG Oral; Duration: 90 Active Tylenol Active Methocarbamol Active Topamax 200 MG 1 tablet Orally twic e a day Active Imitrex 100 MG 1 tablet as needed O rally Once a day Active Mesalamine ER 0.375 GM TAKE 4 CAPSULES B Y MOUTH EVERY MORNING 90; Duration: 90 Active Robaxin Active Centrum Silver - [...] 2000 former smoker over 18 years quit 2000 former smoker over 18 years quit 1999 former smoker over 20 years quit 1999, has an occasional cocktail former smoker over 20 years quit 1999, has an occasional cocktail Problems Problem Type SNOMED Code ICD Code Onset Dates Problem Status W/U Status Risk Notes Problem Gastro-esophageal reflux disease without esophagitis (423150975) Gastro-esophageal reflux disease without esophagitis (K21.9) Active confirmed Problem Nausea (085292894) Nausea (R11.0) Active confir med Problem Gastroesophageal reflux disease (017423517) Gastroesophageal reflux disease (K21.9) Active confirmed Problem Crohn's disease of small AND large intestines (50387787) Crohns disease of both small and large intestine without complication (K50.80) Active confirmed Problem Gastroesophageal reflux disease without esophagitis (324175441) Gastroesophageal reflux disease without esophagitis (K21.9) Active confirmed Problem Colitis (16040750) Colitis (K52.9) Active confi rmed Problem Diarrhea (80830278) Diarrhea, unspecified type (R19.7) Active confirmed Problem Irritable bowel syndrome characterized by constipation (704083354) Irritable bowel syndrome with constipation (K58.1) Active confirmed Problem Crohn's disease of large bowel (1896172) Crohn's disease of colon without complication (K50.10) [...] [employer] [place] [address] [address] [place] [address] [id number] Ju Pereyra Self - patient is the insured Medical (General) History Medical History History ICD Code esophageal reflux low vitamin D level arthritis carpal tunnel syndrome Denies AK,DM,CVA,Lung disease,renal dise ase iron deficiency anemia Crohn's colitis, last colonoscopy 2018, no active disease. Surgical History Surgery Date(Month/Year) neck surgery cholecystectomy tubal ligation several orthopedic surgeries
--- OUTSIDE RECORDS SUMMARY | 2025-07-13 09:01 | XMS_ITS | Clinical Summary ---
Author Organization [facility] Address [address] [place] [address] Phone Care Team Providers Care Diabetes Educator Name Role Phone Manolo Bonilla MD Primary Care Provider Allergies Active Allergy Reactions Criticality Noted Date Comments Ibuprofen 06/20/2024 Omeprazole 06/20/2024 Tramadol 06/20/2024 Medications Ajovy Syringe 225 mg/1.5 mL syringe INJECT 1.5 ML SUBCUTANEOUSLY EVERY 30 DAYS FOR 90 DAYS 02/27/20 25 Active fexofenadine (TRUMAN) 180 mg tablet Take 1 tablet (180 mg total) by mouth 1 (one) time each day in the morning. 03/09/20 25 Active cetirizine (ZyrTEC) 10 mg tablet Take 1 tablet (10 mg total) by mouth at bedtime. 03/30/20 25 Active multivitamine, geriatric, (CENTRUM SILVER) tablet Take 1 tablet by mouth daily. Active rizatriptan (MAXALT-PARTS FACILITATOR) 10 mg disintegrating tablet PLEASE SEE ATTACHED FOR DETAILED DIRECTIONS 05/11/20 25 Active ondansetron ODT (ZOFRAN-ODT) [address] 1 TABLET ON THE TONGUE AND ALLOW TO DISSOLVE NEEDED ONCE A DAY 04/24/20 25 Active pantoprazole (PROTONIX) 40 mg EC tablet Take 1 tablet (40 mg total) by mouth 1 (one) time each day. 03/26/20 25 Active Mounjaro 2.5 mg/0.5 mL injection INJECT 2.5 MG (0.5 ML) SUBCUTANEOUSLY EVERY WEEK FOR 28 DAYS FOR 4 WEEKS Active methocarbamoL (ROBAXIN) 750 mg tablet Take 1 tablet (750 mg total) by mouth. Active magnesium oxide (MAG-OX) 400 mg magnesium tablet Take 2 tablets (800 mg total) by mouth 2 times daily. Active EPINEPHrine (EPIPEN) 0.3 mg/0.3 mL injection USE DIRECTED FOR ANAPHYLAXIS THEN CALL 911 04/20/20 Active DULoxetine (CYMBALTA) [address] capsule take 1 capsule by mouth twice a day for 90 days 04/13/20 Active Active Problems Problem Noted Date Diagnosed Date Type 2 diabetes mellitus ([facility] V24, [facility] V 28) 01/28/2025 PONV (postoperative nausea and vomiting) 024 Arthritis 06/20/2024 Bilateral foot pain 06/20/2024 Carpal tunnel syndrome 06/20/2024 Crohn disease ([facility] V24, [facility] V28) 024 Dizziness 06/20/2024 Elevated blood pressure reading 06/20/2024 Fatty liver disease, nonalcoholic 06/20/2024 Fever of unknown origin 06/20/2024 Fibromyalgia 06/20/2024 Gastroparesis 06/20/2024 Hypertriglyceridemia 06/20/[address] ([facility] V24, [facility] V28) Intra-abdominal abscess ([facility] V24, [facility] V2 8) 06/20/2024 Iron deficiency anemia 06/20/2024 Leukocytosis 06/20/2024 Migraines 06/20/2024 Pain in right foot 06/20/2024 Parastomal hernia 06/20/2024 Perforated viscus 06/20/2024 Prediabetes 06/20/2024 Recurrent vomiting 06/20/2024 Seborrheic dermatitis 06/20/2024 Shock ([facility] V24, [facility] V28) 06/20/2024 Sinusitis 06/20/2024 Subcutaneous abscess 06/20/2024 Status post total colectomy 02/07/2023 Lateral epicondylitis of right elbow 09/26/2021 Crohn's disease of small int estine without complication ([facility] V24, [facility] V28) 12/25/2019 Raynaud's disease without gangrene 10/10/2018 Gastroesophageal reflux disease with esophagitis 08/09/2017 Primary osteoarthritis involving multiple joints 08/09/2017 Encounters Date Type Department Care Team Description 06/09/2025 2:30 PM EDT Evaluation [facility] Occupational Therapy [address] [place] [phone] Shikha Chaves OT Lateral epicondylitis of left elbow (Primary Dx) 05/22/2025 11:00 AM EDT Consult Orthopedic Surgery [facility] [address] [facility] [address] [place] [phone] Nikki Melara MD Lateral epicondylitis of left elbow (Primary Dx); Carpal tunnel syndrome of left wrist 04/20/2025 9:00 AM EDT Office Visit Orthopedic Surgery [facility] [address] [facility] [address] [place] [phone] Matthew Hall, TOO Metatarsalgia of right foot (Primary Dx); Lateral epicondylitis of left elbow; Neuritis from Last 3 Months Surgical History Surgery Date Site/Laterality Comments SHOULDER ARTHROSCOPY W/ SUBA CROMIAL DECOMPRESSION AND DISTAL CLAVICLE EXCISION Left CARPAL TUNNEL RELEASE Right CYST REMOVAL Right palm of hand Social History Tobacco Use Types Packs/Day Years Used Date Smoking Tobacco: Never Assessed Comments Unknown Sex and Gender Information Value Date Recorded Sex Assigned at Not on file Legal Sex Female 11:39 AM EDT Gender Identity Not on file Sexual Orientation Not on file Obstetrics History Last Filed Vital Signs Vital Sign Reading Time Taken Comments Blood Pressure - - Pulse - - Temperature - - Respiratory Rate - - Oxygen Saturation - - Inhaled Oxygen Concentration - - Weight 83.5 kg (184 lb) 05/22/2025 11:19 AM EDT Height 157.5 cm (5' 2 ) 05/22/2025 11:19 AM EDT Body Mass Index 33.65 05/22/2025 11:19 AM EDT Plan of Treatment Health Maintenance Due Date Last Done Comments Breast Cancer Screening 1961 Colorectal Cancer Screening: Colonoscopy 1961 Diabetes: Annual Foot Exam 1971 Diabetes: Annual Retina Eye Exam 1971 DTaP,Tdap,and Td Vaccines (1 - Tdap) 01/17/1980 Cervical Cancer Screening: Pap Smear 1982 Diabetes: Annual GFR (Glomerular Filtration Rate) 10/10/2019 10/10/2018, 10/09/2018, 09/06/2018, Additional history exists Cholesterol Screening (Lipid Panel) 06/23/2024 HIV Screening 06/23/2024 Hepatitis C Screening 06/23/2024 Social Influencers of Health Screening 06/23/2024 Depression Screening 09/10/2024 Diabetes: Annual Urine Albumin-Creatinine Ratio (uACR) 02/09/2025 Diabetes: Blood Sugar Control Test (HGBA1C) 02/09/2025 Zoster Vaccines Completed 08/16/2020, 05/26/2020 RSV Immunization Adult Patients Completed 05/29/2024, 10/18/2023 COVID-19 Vaccine Completed 05/29/2025, , 06/06/2023, Additional history exists Influenza Vaccine Completed 05/29/2025, , 06/06/2023, Additional history exists Pneumococcal Vaccine: 50+ Years Completed 05/29/2025, 01/02/2017 HIB Vaccines Aged Out No longer eligi [...] Procedure Name Priority Date/Time Associated Diagnosis Comments GA ARTHROCENTESIS/ASPIR ATION/INJECTION INTERMEDIATE JOINT/BURSA WO U/S GUID Routine 05/22/2025 11:00 AM EDT Lateral epicondylitis of left elbow from Last 3 Months Results * GA ARTHROCENTESIS/ASPIRATION/INJECTION INTERMEDIATE JOINT/BURSA WO U/S GUID (05/22/2025 11:00 AM EDT) Nikki Shankar MD - 05/22/2025 11:00 AM EDT Nikki Melara MD 05/23/2025 12:06 PM Medium Inj/Asp: L elbow Details: 25 G needle, lateral approach Medications: 40 mg triamcinolone acetonide 40 mg/mL Lateral epicondyle was prepped with Betadine alcohol. A small wheal of 1 cc of lidocaine 1% with epinephrine was injected over the epicondyle. I then injected 1 cc of Kenalog at the point of maximal tenderness. Patient tolerated this well and a bandage was applied. Informed Consent: Site: Left lateral epicondyle Laterality: Left Health status cleared: Yes Procedure/treatment, purpose, treatment alternatives, risks/potential complications and benefits explained: yes Risk/complications/benefits details: Cortisone is an effective medication to treat swelling, inflammation, and pain. It is used frequently for such conditions as arthritis, tendinitis, bursitis, and carpal tunnel syndrome. However, there are risks to the use of cortisone. For diabetics it can raise blood sugars to a dangerous level. It can cause skin thinning, fat atrophy, skin discoloration, and wound healing issues. It can predispose to infection. Chronic use can affect bone metabolism. It can over time and with repeated usage become less effective. Generally it is advisable NOT to have more than 3 injections/year. Patient questions answered: yes Patient agrees, verbalizes understanding, and wants to proceed: yes Consent given by: Patient Informed consent discussion completed by Physician/MATTY with patient: Verbal Pre-procedure timeout performed: yes Nikki Melara MD IN CLINIC/BEDSIDE ORDERABLES Final Result from Last 3 Months Insurance [facility] [employer] Care Teams Diabetes Educator Relationship Specialty Start Date End Date Manolo Bonilla MD [address] [place] [address] Dr Leonel [place] PCP - General 05/05/24
[2025-07-13 09:11] VITALS: BMI 30.6
--- NOTE | 2025-07-13 09:11 | MHC.AMNUTRGE ---
VS Expanded 07/13/25 09:11 Height 5 ft 4 in Weight 178 lb 2.136 oz BMI 30.6 Intake Visit Reasons: t2DM Allergies omeprazole (OMEPRAZOLE) Allergy (Severe, Verified 05/12/25 15:34) N/V tramadol (From Ultram) Allergy (Intermediate, Verified 05/12/25 15:34) ITCHING vaccine adjuvant system, AS01B lipo (From Shingrix (PF)) Allergy (Unknown, Verified 05/12/25 15:34) Unknown varicella-zoster virus glycoprotein (From Shingrix (PF)) Allergy (Unknown, Verified 05/12/25 15:34) Unknown ibuprofen (From Motrin) Allergy (Verified 05/12/25 15:34) Unknown IVP Dye Allergy (Unknown, Uncoded 05/12/25 15:34) Unknown Z pack Allergy (Unknown, Uncoded 05/12/25 15:34) Unknown Nutrition Presentation Details: Pt presents for MNT f/u for T2DM, obesity. Pt reports working on reducing portion sizes of higher fat foods Pt reports switching unsweetened coconut milk (40 amara /per cup) Reading food labels and choosing lower calorie options Beverages: water, milk, hydration packets or sugar free gatorate on occ 48 oz /day - fluids Protein foods: owyn protein shake/day as a meal replacement meals: chicken sand or salad with eggs or pasta/chicken and vegies BS Monitoring Most Recent Diabetes Results: Creatinine, (0.5-1.4) 1.01 mg/dL Today BUN, (9-16) 10 mg/dL Today Sodium, (135-145) 143 mmol/L Today Potassium, (3.3-5.1) 3.6 mmol/L Today Chloride, (96-108) 105 mmol/L Today Carbon Dioxide, (22-29) 32 mmol/L H Today Calcium, (8.4-10.2) 9.7 mg/dL Today AST, (5-31) 36 U/L H Today ALT, (0-31) 53 U/L H Today Total Protein, (6.5-8.0) 7.4 g/dL Today Albumin, (3.5-5.0) 4.3 g/dL Today [facility] Medical History Peripheral neuropathy Cervical disc disease Prediabetes Hypertriglyceridemia Elevated blood pressure reading Bilateral foot pain Incisional hernia Parastomal hernia Subcutaneous abscess Seborrheic dermatitis Migraines Fatty liver disease, nonalcoholic Sinusitis Ileostomy in place Dizziness Recurrent vomiting Gastroparesis Intra-abdominal abscess Intra-abdominal abscess Fever of unknown origin Leukocytosis Shock Perforated viscus COVID-19 vaccine series completed Environmental allergies PONV (postoperative nausea and vomiting) Thoracic disc herniation Herniated cervical disc Back pain Fibromyalgia Hx of migraines Crohn's disease Iron deficiency anemia Carpal tunnel syndrome Arthritis Vitamin D deficiency GERD (gastroesophageal reflux disease) Surgical History S/P colectomy Status post colostomy Hx of shoulder surgery History of surgery Hx of fusion of cervical spine Hx of cholecystectomy History of tonsillectomy History of esophagogastroduodenoscopy (EGD) History of tubal ligation Hx of colonoscopy Family History Paternal Grandmother High blood pressure High cholesterol Mother Throat cancer Alcoholism Alcohol abuse Maternal Grandmother Breast cancer Paternal Grandfather Prostate cancer Family/Other High blood pressure Father Alcohol abuse Daughter FH: mental illness Social History Household Members: Spouse and Family Household Members Other:: [place] Housing: House Are you a primary senior resident care director to a significant other at home: No Do you presently have visiting nurse or other home services: No Alcohol intake: former Comment: restraints Patient Tobacco Use Status: Former Tobacco user Tobacco use type: Cigarette e-Cigarette/Vaping Use: Never Used Second Hand Smoke Exposure: No Advance Directives Date on File: 08/08/22 service: No Current occupational status: employed 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 @ [employer] Cognitive needs: No Hearing needs: No Vision needs: No Assessment & Plan Assessment & Plan (1) Prediabetes: Comment: with hypertriglyceridemia Code(s): R73.03 - Prediabetes Category: Medical Plan: Wt: 88 Kg ( 06/03 ), 90kg (12/02), 89 kg (01/31), 85 kg (05/04 on Mounjaro), 80 kg (08/04) Est kcal needs as per MSJ: 1700 (40% carb, 30% protein/fat) Est fluid needs as per 25-30 ml/d: 2400 Est prot per day as per 1 g/kg bw: 85 Recommend fiber intake : 8-10 g per day and gradually increase to 25-28 g per day for women and 35-38 g for men or as tolerated Recommend sodium intake per day : less than 2300 mg Educated patient on: ( R = reviewed V = verbalizes understanding N/R = needs review N/A = not applicable Food sources of carbohydrate, adequate serving sizes and its role in various health conditions: R Differences between complex carbohydrates a simple carbohydrates, role of fiber in diet: R Lean protein sources of foods: R Differences between types of fats and role in diet (mono on saturated fat fatty acids, saturated fatty acids, trans fats): R Food sources of sodium in salt and healthy modifications for heart health in kidney health: R V R/V Vitamins and minerals: R V N/R Healthy plate method concept: R Physical activity: Benefits a precaution: R Dietary prevention of Hyperglycemia: R Patient Instructions: Keep hydrated , have water with meals , low sugar beverages (8-10 cups/day) continue working on combining carbs/protein , choose smaller plates, reducing on amount of fat added to the foods (reduce on butter, cream, sauces,) Include omega 3 fatty acids (1 tsp flasxeed oil/day ) Coding Level of Care Code Nutr Indiv Subseq (66136) Diagnoses Prediabetes R73.03 Time Spent (min) 30
== END 2025-07-13 09:35 | disposition home or self-care (01) ==
LOC: HO.ENCR 08:34
PROVIDERS: PCP Family Medicine; Visit Provider Dietitian, Registered
DX: R73.03 Prediabetes (principal)

== ENCOUNTER → 2025-07-13 08:33 | Outpatient (BNVA) | payer OTHER, SELFPAY | PROVIDERS: PCP Family Medicine; Visit Provider Dietitian, Registered | DX: R73.03 Prediabetes (principal); E66.9 Obesity, unspecified; Z68.30 Body mass index [BMI] 30.0-30.9, adult; Z71.3 Dietary counseling and surveillance | CPT/HCPCS: 97803 ==

== ENCOUNTER 2025-07-13 10:08 | Outpatient (REF) | payer OTHER, SELFPAY ==
[2025-07-13 11:28] LABS: MANUAL DIFF FLAG NO
[2025-07-13 11:46] LABS: Hematocrit 43.9 % (37.0-47.0); Hemoglobin 15.0 g/dl (12.0-16.0); Imm Gran Abs Auto 0.03 X10*3/uL (0.00-0.03); Imm Gran Pct Auto 0.3 % (0.0-0.4); Lymphocytes Absolute Auto 2.4 X10*3/uL (1.2-4.9); Mean Corpuscular HGB Conc 34.2 g/dl (31.0-35.0); Mean Corpuscular Hemoglobin 31.5 pg (27.0-33.0); Mean Corpuscular Volume 92.2 fL (80.0-98.0); NRBC Abs Auto 0.000 X10*3/uL (0.0-0.012); NRBC Pct Auto 0.0 /100WBC (0.0-0.2); Platelet Count 250 X10*3/uL (160-400); Red Blood Count 4.76 X10*6/uL (4.20-5.50); White Blood Count 8.8 X10*3/uL (4.8-10.8)
[2025-07-13 12:36] LABS: Alanine Aminotransferase 53 U/L (0-31); Albumin Level 4.3 g/dL (3.5-5.0); Alkaline Phosphatase 171 U/L (39-117); Anion Gap 10 (12-20); Aspartate Amino Transferase 36 U/L (5-31); Blood Urea Nitrogen 10 mg/dL (9-16); Calcium 9.7 mg/dL (8.4-10.2); Carbon Dioxide 32 mmol/L (22-29); Chloride 105 mmol/L (96-108); Estimated Glomerular Filt Rate 55; Magnesium 2.2 mg/dL (1.6-2.6); Potassium 3.6 mmol/L (3.3-5.1); Sodium 143 mmol/L (135-145); Total Protein 7.4 g/dL (6.5-8.0)
== END 2025-07-13 10:09 | disposition home or self-care (01) ==
LOC: HO.WFDLDS 10:08
PROVIDERS: Internal Medicine Rheumatology; Referring Provider Family Medicine; Visit Provider Dietitian, Registered
DX: E11.9 Type 2 diabetes mellitus without complications (principal); E83.42 Hypomagnesemia; M06.4 Inflammatory polyarthropathy; Z79.899 Other long term (current) drug therapy
CPT/HCPCS: 36415; 80053; 82550; 83735; 85025; 85652; 86140

== ENCOUNTER 2025-08-13 15:26 | Outpatient (AMB) | payer OTHER, SELFPAY ==
--- OUTSIDE RECORDS SUMMARY | 2024-04-21 12:00 | XMS_ITS ---
Author Organization Shamar Do III, MD Address [address] [place] [address] [place] [address] Care Team Providers Care Wire Frame Maker Name Role Phone Manolo Bonilla Primary Care Provider Unavailab Dr. Shamar Munguia III Unavailable REASON FOR VISIT Follow up Social History Sex Assigned At : Social History Observation Description Sex Assigned At Female Encounters Encounter Location Date Provider Diagnosis Shamar Do III, MD [address] [place] [address] [place] [address] 04/21/2024 Shamar Do Plan Of Treatment No Information Progress Notes * Ju HANKINS MDOB: (65 yo F)Acc No.[id number]:04/21/2024 Progress Notes Patient: Lorna ROSEJu Provider: Nate Do MD :1960 A ge:64 Y S ex:Female Date:04/21/2024 Address:[address] [id number] Pcp:Manolo Bonilla Subjective: * Chief Complaints: * [...] MD Date: 0 04/21/2024 Generated for Jakob danielle/Juan/Latosha on: 1 10/14/2024 09:34 PM EST
--- OUTSIDE RECORDS SUMMARY | 2024-04-28 04:15 | XMS_ITS ---
Author Organization Shamar Do III, MD Address [address] [place] [address] [address] [address] Care Team Providers Care Hematology Supervisor Name Role Phone Manolo Bonilla Primary Care Provider Unavailab Dr. Shamar Munguia III Unavailable Allergies Allergen (clinical drug ingredient) Drug/Non Drug [...] Date Provider Diagnosis Shamar Do III, MD [address] [place] [address] [place] [phone] 04/28/2024 Shamar Do Leukopenia, unspecif ied type [...] Ju HANKINS MDOB: 1 (64 yo F)Acc No.[id number]:04/28/2024 Progress Notes Patient: Lorna moralesJu Provider: Nate Do MD :1960 A ge:64 Y S ex:Female Date:04/28/2024 Address:[address], [facility] [place], [id number] Pcp:Manolo Bonilla Subjective: * Chief Complaints: * [...] at annual visits. A CBC done at [facility] April 28, 2024 showed a [...] olostomy 07/2022 * Hospitalization/Major Diagno stic Procedure: [facility] colitis May 2017 * Family History: [...] A ggressive non-smoker S he lives in [place], [place]. 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 She has been exposed to hydrocarbons. She was born in [place]. He has a long-term significant other named [...] true * Provider: Nate Do MD Date: 0 04/28/2024 Generated for Jakob ng/Juan/eTransmitting on: 10/14/2024 09:35 PM EST History and Physical Notes * HPI (History of Present Illness) Category Sub-Category Detail Notes COVID-19 Screening Questions Have you had any new onset fever, chills, cough, congestion, sore throat, shortness of breath, muscle aches?: No Have you been exposed to the virus withi n the last 10 days?: No Have you travelled internationally in [facility] last 10 days?: No Have you been [...]
--- OUTSIDE RECORDS SUMMARY | 2025-04-29 12:00 | XMS_ITS ---
Author Organization Shamar Do III, MD Address [address] [place] [address] [place] [address] Care Team Providers Care Automobile Appraiser Name Role Phone Irene Manolo Primary Care Provider Unavailab Dr. Shamar Munguia III Unavailable Allergies Allergen (clinical drug ingredient) Drug/Non Drug Allergy documented on EMR Reaction Allergy Type Onset Date Status tramadol Ultram Unknown Drug Allergy Active omeprazole Omeprazole Unknown Drug Allergy Activ e REASON FOR VISIT Follow up Medications Medication SIG (Take, Route, Frequency, Duration) Notes Start Date End Date Status Vitamin D3 Active DULoxetine HCl Activ e Methocarbamol Active Famotidine Active Ajovy 225 MG/1.5ML as directed Subcutaneous once a month Active Rizatriptan Benzoate Active Ondansetron Active Centrum Silver - Orally Act ariana Claritin 10 MG 1 tablet Orally Once a day Active Magnesium 400 MG 2 tablets with a funmi l Orally Twice a day Active Social History Tobacco Use: Social History Observation Description Date Details (start date - stop date) Never Smoker NA - NA Sex Assigned At : Social History Observation Description Sex Assigned At Female Tobacco Use/Smoking Question Answer Notes Patient is a nonsmoker Additional Findings: Tobacco Non-User Aggressive non-smoker Encounters Encounter Location Date Provider Diagnosis Shamar Do III, MD [address] [place] [address] [place] [address] 04/29/2025 Shamar Do Leukopenia, unspecified type D72.819 Assessments Encounter Date Diagnosis (ICD Code) Assessment Notes Treatment Notes Treatment Clinical Notes 04/29/2025 Leukopenia, unspecified type (ICD-10 - D72.819) The value is now in the normal range. She has had no recent infections. Plan Of Treatment Medication Medication Name Sig Start Date Stop Date Notes Vitamin D3 DULoxetine HCl Methocarbamol Famotidine Ajovy 225 MG/1.5ML as directed Subcutaneous once a month Rizatriptan Benzoate Ondansetron Centrum Silver - Orally Claritin 10 MG 1 tablet Orally Once a day Magnesium 400 MG 2 tablets with a funmi l Orally Twice a day Progress Notes * Ju HANKINS MDOB: (65 yo F)Acc No.[id number]:04/29/2025 Progress Notes Patient: Ju BHATT Provider: Nate Do MD :1960 A ge:65 Y S ex:Female Date:04/29/2025 Address:[address] Pcp:Manolo Bonilla Subjective: * Chief Complaints: * 1 . Follow up. * HPI: C OVID-19 Screening: Questions H ave you had any new onset fever, chills, cough, congestion, sore throat, shortness of breath, muscle aches? N o * ROS: G eneral/Constitutional: pain o nly normal aches and pains. C hills d enies.?Fatigue a dmits. F ever d enies. E NT: Decreased hearing d enies. R espiratory: Cough d enies. C ardiovascular: Chest pain with exertion d enies. D yspnea on exertion?denies. S hortness of breath d enies. G astrointestinal: Constipation d enies. D ecreased appetite d enies.?Diarrhea d enies. H eartburn d enies. N ausea d enies. R ectal bleeding?denies. V omiting d enies. H ematology: bruising d enies. p etechiae d enies. S wollen glands n one have been noted. G enitourinary: Frequent urination d enies. M usculoskeletal: Muscle aches d enies. P ainful joints d enies. S ciatica d enies. W eakness d enies. S kin: Itching d enies. R yael d enies. S kin lesion(s)?denies. N eurologic: Difficulty speaking d enies. D izziness d enies.?Headache d enies. L ow back pain d enies. P sychiatric: Depressed mood d enies. * Medical History: N eutropenia, Normochromic normocytic anemia, Thrombocytopenia, Colitis, History of obesity, Clostridium difficile infection x 3, Hypertension, Chronic low back pain secondary to herniated disc, positive high riskHPVDNA 2011, -2014, degenerative disc disease. Neck, 3, unremarkable spleen on abdominal CT scan done 2016. * Surgical History: t onsillectomy 1978, cholecystectomy 1994, cyst removal rtigh hand 2000, left shoulder decompression 2006, c spine fusion C5-6 2008, negative colonoscopy. Dr. Peralta 2016, Bowel perforation surgery 05/2022, Colostomy 07/2022. * Hospitalization/Major Diagno stic Procedure: [facility] colitis May 2017. * Family History: F ather: alive 81 [...] A ggressive non-smoker S he lives in [place], [place]. 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 She has been exposed to hydrocarbons. She was born in [place]. He has a long-term significant other named Brandon. * Medications: T aking Claritin 10 MG Tablet 1 tablet Orally Once a day , Taking Magnesium 400 MG Tablet 2 tablets with a meal Orally Twice a day , Taking Centrum Silver - Tablet Orally , Taking Rizatriptan Benzoate , Taking Ondansetron , Taking Famotidine , Taking Ajovy 225 MG/1.5ML Solution Auto-injector as directed Subcutaneous , Notes to Pharmacist: once a month, Taking DULoxetine HCl , Taking Methocarbamol , Taking Vitamin D3 , Medication List reviewed and reconciled with the patient * Allergies: O meprazole, Ultram. Objective: * Vitals: * Examination: G eneral Examination: GENERAL APPEARANCE: p doyle, well nourished, well developed, in no acute distress, calm and relaxed. HEAD: a traumatic, normocephalic. EYES: e ely, [...] LUNGS: c lear to auscultation . BREASTS: no masses palpable bilaterally. ABDOMEN: b owel sounds normal, no ascites, no organomegaly, no mass. RECTAL EXAM: n ot examined. MUSCULOSKELETAL: e xtremities unremarkable, no clubbing, cyanosis or edema. PERIPHERAL PULSES: n ormal. NEUROLOGIC: a lert and oriented, cranial nerves 2-12 grossly intact, deep tendon reflexes 2+ symmetrical, motor strength normal upper and lower extremities, sensory exam intact. PSYCH: a lert, oriented. Assessment: * Assessment: 1. L eukopenia, unspecified type - D72.819 N otes :The value is now in the normal range. She has had no recent infections. Plan: * Treatment: 2. O thers Continue Claritin Tablet, 10 MG, 1 tablet, Orally, Once a day; C ontinue Magnesium Tablet, 400 MG, 2 tablets with a meal, Orally, Twice a day; C ontinue Rizatriptan Benzoate; C ontinue Ondansetron; C ontinue Famotidine; C ontinue Ajovy Solution Auto-injector, 225 MG/1.5ML, as directed, Subcutaneous, Notes to Pharmacist: once a month; C ontinue DULoxetine HCl; C ontinue Methocarbamol. * Images: * The named appointment provid er may or may not be the originator of this progress note, and it is not deemed complete until electronically signed by the appointment provider. Sign off status: Pending * Provider: Nate Do MD Date: 0 04/29/2025 Generated for Jakob danielle/Juan/Latosha on: 10/14/2024 09:35 PM EST History and Physical Notes * HPI (History of Present Illness) Category Sub-Category Detail Notes COVID-19 Screening Questions Have you had any new onset fever, chills, cough, congestion, sore throat, shortness of breath, muscle aches?: No Examination Category Sub-Category Detail Notes General Examination GENERAL APPEARANCE: pleasant , well nourished, well developed, in no acute distress, calm and relaxed HEAD: atraumatic, normocep halic EYES: eomi, perrla, anicte gilda, conjugate EARS: normal NOSE: septum intact NECK/THYROID: no jugular venous di stention, no carotid bruit, thyroid normal HEART: no clicks, gallops, murmurs, or rubs, regular rhythm, S1, S2 normal, no s3, or vascular bruits LUNGS: clear to auscultatio n ABDOMEN: bowel sounds normal, no ascites, no organomegaly, no mass NEUROLOGIC: alert and oriented, cranial nerves 2-12 grossly intact, deep tendon reflexes 2+ symmetrical, motor strength normal upper and lower extremities, sensory exam intact SKIN: no suspicious lesion s, anicteric PERIPHERAL PULSES: normal BREASTS: no masses palpable b ilaterally MUSCULOSKELETAL: extremities unremark able, no clubbing, cyanosis or edema LYMPH NODES: no enlarged lymph no linda,spleen normal RECTAL EXAM: not examined PSYCH: alert, oriented ORAL CAVITY: normal, unremarkable
--- OUTSIDE RECORDS SUMMARY | 2025-05-25 13:30 | XMS_ITS ---
Author Organization Shamar Do III, MD Address [address] [place] [address] [place] [address] Care Team Providers Care Architectural Technician Name Role Phone Manolo Bonilla Primary Care Provider Unavailab Dr. Shamar Munguia III Unavailable REASON FOR VISIT Follow up Social History Sex Assigned At : Social History Observation Description Sex Assigned At Female Encounters Encounter Location Date Provider Diagnosis Shamar Do III, MD [address] [place] [address] [place] [address] 05/25/2025 Shamar Do Plan Of Treatment No Information Progress Notes * Ju HANKINS MDOB: (65 yo F)Acc No.[id number]:05/25/2025 Progress Notes Patient: Lorna ROSEJu Provider: Nate Do MD :1960 A ge:65 Y S ex:Female Date:05/25/2025 Address[address] [id number] Pcp:Manolo Bonilla Subjective: * Chief Complaints: * [...] MD Date: 0 05/25/2025 Generated for Jakob danielle/Juan/Latosha on: 1 10/14/2024 09:35 PM EST
--- OUTSIDE RECORDS SUMMARY | 2025-05-27 10:00 | XMS_ITS ---
Author Organization Shamar Do III, MD Address [address] [place] [address] [place] [address] Care Team Providers Care Data Processor Name Role Phone Manolo Bonilla Primary Care [...] Date Provider Diagnosis Shamar Do III, MD [address] [place] [address] [place] [address] 05/27/2025 Shamar Do Leukopenia, unspecif ied type [...] she continue routine and regular visits with MILK ROUTE SUPERVISOR. 05/27/2025 Degenerative disc disease, cervical (ICD-10 - [...] Ju HANKINS MDOB: 1 (65 yo F)Acc No.[id number]:05/27/2025 Progress Notes Patient: Ju BHATT Provider: Nate Do MD :1960 A ge:65 Y S ex:Female Date:05/27/2025 Address:[address], [place] Pcp:Manolo Bonilla Subjective: * Chief Complaints: * [...] 2Colostomy 07/2022 * Hospitalization/Major Diagno stic Procedure: [facility] colitis May 2017 * Family History: [...] A ggressive non-smoker S he lives in [place], [place]. 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 She has been exposed to hydrocarbons. She was born in [place]. He has a long-term significant other named [...] she continue routine and regular visits with MILK ROUTE SUPERVISOR. 5 . D egenerative disc disease, cervical [...] MD Date: 0 05/27/2025 Generated for Jakob danielle/Juan/Mioitting on: 1 10/14/2024 09:35 PM EST History and Physical [...]
--- OUTSIDE RECORDS SUMMARY | 2025-08-10 08:30 | XMS_ITS | Encounter Summary ---
Author Organization [facility] Address [address] [place] [phone] Phone Care Team Providers Care Button Reclaimer Name Role Phone Manolo Bonilla MD Primary Care Provider Reason for Visit * Reason Comments Inflammatory Polyarthritis * Consultation (Routine) - Authorized Specialty Diagnoses / Procedures Referred By Contac t Referred To Contact Rheumatology Diagnoses Return in about 6 months (around 07/31/2025). Procedures FOLLOW UP Manolo Bonilla MD Phone: tel: fax: [facility] Rheumatology [address] [place] [address] [place] [address] Phone: tel: fax: Referral ID Status Reason Start Date Expiration Date V isits Requested Visits Authorized [id number] Authorized 08/10/2025 09/09/2025 6 6 Encounter Details Date Type Department Care Team (Latest Contact Info) Description 08/10/2025 8:30 AM EST Office Visit [facility] Rheumatology [address] [place] [address] [place] [address] Tory Cordova MD [address] [facility], [address] [place] [address] [email or web address] Inflammatory polyarthritis (Primary Dx); Primary osteoarthritis involving multiple joints; Fibromyalgia; Raynaud's disease without gangrene; Status post total colectomy; Gastroesophageal reflux disease with esophagitis without hemorrhage; Migraine without aura and without status migrainosus, not intractable; On selective serotonin reuptake inhibitor (SSRI) therapy; Type 2 diabetes mellitus without complication, without long-term current use of insulin; Hypomagnesemia; Class 1 obesity due to excess calories with serious comorbidity and body mass index (BMI) of 32.0 to 32.9 in adult; Postmenopausal Social History Tobacco Use Types Packs/Day Years Used Date Smoking Tobacco: Former Cigarettes Smokeless Tobacco: Never Alcohol Use Standard Drinks/Week Comments Not Currently [...] Orientation Straight 11/19/2020 1: 07 PM EST documented as of this encounter Last Filed Vital Signs Vital Sign Reading Time Taken Comments Blood Pressure 126/76 08/10/2025 8:12 AM EST Pulse 84 08/10/2025 8:12 AM EST Temperature - - Respiratory Rate - - Oxygen Saturation 98% 08/10/2025 8:12 AM EST Inhaled Oxygen Concentration - - Weight 79.8 kg (176 lb) 08/10/2025 8:12 AM EST w ith shoes Height 157.5 cm (5' 2.01 ) 08/10/2025 8:12 AM ES T Body Mass Index 32.18 08/10/2025 8:12 AM EST documented in this encounter Patient Instructions * Attachments The following attachments cannot be sent through Care Everywhere. 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 Since last visit on 01/28/2025 Ju feels a bit sore today particularly within her left hand where she has fingers curling and locking in addition to the right ankle that started hurting her a lot at night on Sunday-08/05/2025 without any preceding injury . There is no swelling no redness and no hot appearance. About 3 months ago lost coverage for [employer] and now her headaches are more frequent. Xolair has been approved for chronic hives but needs additional processing through her prescribing doctor. She takes Robaxin 3 times daily that takes edge of muscle cramps in addition to magnesium pills. 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 Left tennis elbow got more active in February and March 2025 for which she received local steroid injection combined with formal OT guided exercises that helped. No falls or injuries. No fevers, chills or night sweats. She admits to intermittent abdominal pain but no melena or hematochezia. She is pleased with her weight loss since using Mounjaro. She was diagnosed with type 2 diabetes toward the end of November 2024 and started on Mounjaro that she tolerates well. She has EMG/NCS documented neuropathy mostly within her LLE that is tingly up to the knee with curling in her toes even at rest. She frequently gets big toe turning to the side and massive leg cramps. She is currently on Cymbalta 30 mg twice daily that helps not only for her fibromyalgia but also for neuropathy. She sees her neurologist every 3 months. She feels frequently wheezing for the last month and believes that is secondary to environmental allergies. She sweats a lot and happily reports less migraine headaches with FL 41 lenses that she wears everyday since last day of January 2024. There is discomfort within the left SI joint that initially was helped with yoga but lately only walking is allowed. She was found with bilateral feet neuropathy by EMG/NCS and her duloxetine dose has been increased to 30 mg twice daily. She is able to wear wider width shoes at work. She also reports numbing up her LLE. She keeps dropping objects from her left hand. She is seeing mortgage loan closer every 3-4 months. She intermittently forgets to take evening magnesium chewable that may be because of intermittent muscle cramps. She reports tightness on the bottom of her feet. Her sleep is poor secondary to neck pain and she can only sleep on her back. Right shoulder hurts terribly while reaching above the clavicle, getting dressed, brushing teeth orcombing hair. She has joined a new fibromyalgia group online for support. I got new filtered eye lenses called FL-41 in January 2024 and significantly reduced number of migraines in February 2024 down to 6 from prior 15 in January 2024 . She suffered severe widespread all over the body muscle cramps and had to empty her colostomy bag every 15 minutes that caused severe dehydration. She was admitted to [facility] on 11/17/2023 for 3 days where she was found to be infected with Norovirus. 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 Subsequently she had sore throat and cough that was associated with ear infection and in total lasted about 3 weeks. In the evening she develops shocking nerve pain in her feet and legs. Left foot medial aspect tendon gets tight and causes 2nd- 4th toes to curl under. There is a intermittent left knee soreness but no swelling, redness or hot feeling. Methocarbamol helps my neck tightness a lot She feels very fatigued, has recurrent nausea but no fevers, chills or night sweats. My toes get blue/black discoloration on cold exposure . She also reports easy whitening and pain on cold exposure in her fingers that appears worse than inthe past. She has a new primary doctor closer to her home in [place]-Dr. Bonilla. She suffered perforated bowel in May 2022 followed by sepsis and C. difficile colitis. 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 She spent a lot of time in rehab and developed large abscess. She finally left hospital in September 2022 but suffered from severe magnesium deficiency. Raynaud's phenomenon had worsened-hands are white and feet bruised and purple. She takes Cymbalta 20 mg twice daily and tolerates it well. Ju suffered COVID-19 infection in first week of March 2022: Had a fever, cough, diffuse body pain,raspy voice and intermittent cough spells particularly at night. Left arm and foot allodynia after injury in 2021 persists. She gets hives of unclear etiology x 7 years. She likes power water for hydration in addition to plain water. I get worse later in the day . She is using daily desensitization drops against cat, dog, mite, trees, weeds and grass allergies. AM stiffness x 30 minutes. Intermittent cough, nausea abdominal pain. She learned that endoscopy from June 2021 revealed mild gastroparesis. She is getting nauseous alot and a little constipation with Cymbalta for which Colace helps if she is not moving bowels over2 days. Right elbow is sore with opening packages or just lifting a coffee pot on the outside. Left elbow hurts a little on the medial side. Her sleep is not great-she frequently has to sleep in a recliner on her back. She is using drops under the tongue to desensitize to mild allergens including ~40 varieties of Birch tree, dog dander etc. Cymbalta (duloxetine) helps nicely for her allodynia. She was advised to stop Zyrtec and switch onto Claritin. I found silk yogurt that is delicious with probiotics and peach flavor . I have allodynia in my torso . She had EMG/NCS in early June 2020 done by neurologist-Dr. Rodriguez that returned normal-no CTS or other abnormalities. Has difficulty holding a cup in her hands- I can only hold an empty cup Opening doorknobs, counting money is excruciating particularly on the left. She went to OT but did not find it very helpful. She developed fever up to 102?? F within 24 hours of Shingrix vaccination that she received the same day as yearly influenza vaccine on 05/25/2020. She had to stop Emgality for migraine headaches in January 2020 due to marked weight gain. In the past gabapentin gave her weight gain, Flexeril gave her constipation. She is able to manage with Robaxin- my neck and back feel okay with it-she is using it 3 times daily and has no side effects Medications: Current Outpatient Medications Medication Sig Dispense Refill Last Dispense Ca cit-D3-mag#[id number]-bor (CALTRATE 600+D) 600 mg calcium- 800 unit-50 mg Tab Take 1 tablet by mouth daily. Unknown (patient-reported) DULoxetine (CYMBALTA) 20 MG capsule Take 30 mg by mouth 2 (two) times a day. Patient taking 30 mg bid Unknown (patient-reported) EPINEPHrine 0.3 mg/0.3 mL auto-injector Inject 0.3 mg into the muscle. Unknown (patient-reported) fexofenadine (TRUMAN) 60 MG tablet Take 60 mg by mouth daily. Unknown (patient-reported) magnesium oxide 400 mg magnesium Tab Take 800 mg by mouth 2 (two) times a day. Unknown (patient-reported) methocarbamoL (ROBAXIN) 750 MG tablet TAKE 1 TABLET BY MOUTH 3 TIMES A DAY. 90 tablet 2 Unknown (outside pharmacy) MOUNJARO 2.5 mg/0.5 mL PnIj subcutaneous pen Inject 5 mg under the skin once a week. Unknown (patient-reported) lrnyoadvcqma-jokckoxy-rzqwlm (CENTRUM SILVER) Tab Take 1 tablet by mouth daily. Unknown (patient-reported) ondansetron (ZOFRAN-ODT) [address] 1 TABLET ON THE TONGUE AND ALLOW TO DISSOLVE NEEDED ORALLY ONCE A DAY Unknown (patient-reported) pantoprazole (PROTONIX) 40 MG tablet Take 1 tablet by mouth every morning. Unknown (patient-reported) rizatriptan (MAXALT) 10 MG tablet Take 10 mg by mouth daily as needed. Unknown (patient-reported) AJOVY SYRINGE 225 mg/1.5 mL subcutaneous syringe Inject 225 mg under the skin every 30 (thirty) days. (Patient not taking: Reported on 08/10/2025) Unknown (patient-reported) No current facility-administered medications for this visit. Allergies: Allergies Allergen Reactions Nsaids (Non-Steroidal Anti-Inflammatory Drug) Cant take due to stomach Omeprazole Nausea and/or Vomiting Ultram [Tramadol] Itching Ibuprofen Diarrhea and Weight Gain Social History: reports that she has quit smoking. Her smoking use included cigarettes. She has never used smokeless tobacco. She reports that she does not currently use alcohol. She reports that she does not use drugs. She got happily in the sikhism on 04/01/18! Grandson Rajat was born on 04/06/2022 at 30 weeks of gestation-2 pounds 5 ounces . No interval changes in social and family history. ROS: Complete review of systems performed and negative except as in HPI above.. Physical Exam: BP 126/76 (BP Location: Right arm, Patient Position: Sitting, Cuff Size: Large) Pulse 84 Ht 157.5 cm (5' 2.01 ) Wt 79.8 kg (176 lb) Comment: with shoes SpO2 98% BMI 32.18 kg/m?? A pleasant, middle-aged, pale and tired appearing obese female in no acute distress. Alert, oriented ??3. HEENT: NC, AT, normal EEN exam Cor: regular, no murmur or rub Lungs: clear to auscultation bilaterally Abd: soft, nontender, colost pale and tired appearing jean bag on-status post colectomy Ext: no edema, cyanosis or clubbing MSK: Mildly reduced neck extension and rotation toward the R>L . No step-off or radiculopathy. Quite well-preserved range of motion in both shoulders although popping sensation in the right shoulder, sore on end of range on abduction and rotation. Sore on abduction against resistance, R>L. Pulling sensation on testing forearm against resistance. Mild positive left Tinel's and Quan sign. Anthropology Department Chair strength 4/5 on the right comparing to 4/5 onthe left. Bilateral CMC squaring, L>R. Left 3rd PIP and the right 1st CMC tenderness. R >L 1st Heberden's nodes L 3rd& 4th fingers tingle and Tinel's sign. Mild tenderness within mid thoracic spine 1 inch above bra line but no step-off or radiculopathy. Tenderness on hip internal rotation, R>>L. Bilateral knee crepitus without effusion, popliteal cysts or signs of instability, L>R. Normal bilateral ankle, subtalar joint exam. No tenderness across MTP joints bilaterally. +16/18 fibromyalgia tender points. Neuro: no focal deficits except for small area of numbness on the left 1st toe medial aspect Skin: clear -colorful large tattoo on left medial forearm. Labs: I have reviewed with her labs from [facility] on 07/13/2025: Normal CMP except CO2 32 (22-29), AST 36 (5-31), ALT 53 (0-31), CRP 0.81 (0.5), ESR 41 (0-20), normal CBC with differential-see details in media section of [facility]. I reviewed with her most recent labs from 12/22/2024 at [facility]: Normal CBC with differential, ESR 34 (0-20), Normal CMP except BUN 21 (9-16), HbA1c 6.2 (<6.0), AST 65 (5-31), ALT 86 (0-31), CPK 163 (-140), CRP 1.08 (< or= 0.1) Alkaline phosphatase 178 (39-117), Aldolase 9.4 (<= 8.1)-see details in media section of [facility] I have reviewed with her on a computer screen labs from [facility] on 04/23/2024- Normal CMP except BUN 17 (9-16), Random glucose 129 (60-115), AST 45 (5-31), ALT 55 (0-31), CRP 1.16 (<or= 0.50), Alk phos 175 (39-117), Normal TSH, CBC with differential, ESR 33 (0-20)-see details in media section of epic I have reviewed with her labs from [facility] on -11/20 2023: Multiple readings documenting improving liver and renal function, negative C. difficile, influenza A, B, RSV, COVID-19, Campylobacter, Salmonella, Vibrio, Yersinia enterocolica, E. coli, Shigella, Campylobacter, Cyclospora, Entamoeba histolytica, Giardia lamblia, Adenovirus, Astrovirus, Rotavirus, Sapovirus-see details in media section of epic Labs from [facility] done on 08/20/2023: Normal CMP except AST 58 (5-31), ALT 114 (0-31), Alk phos 205 (39-117), CRP 0.68 ( <or = 0.50), Normal ESR, CBC with differential-see details in media section of epic. Labs from 02/06/2023 at [facility] that revealed normal urinalysis except specific gravity > 1.030 (1.005-1.025)-see details in media section of [facility]. Labs from [facility] 11/29/2021: Normal CMP except hyper chloremia at 111 (96-108), nonfasting hyperglycemia at 175 (60-115), ALT 46(0-31), borderline CRP at 0.51 (<or= 0.50), Normal ESR and CBC with differential-see details in media section of [facility] I reviewed with [place]eta notes from [facility] dating back to 03/03/2021 including x-rays and MRI of her right ankle: X-rays revealed no evidence of acute fracture or degenerative change. Lateral image demonstrates subtle cavovarus deformity. There is no trabecular disruption of the calcaneus to suggest obvious fracture Impression: Stress fracture right calcaneus versus possible lateral plantar fascial rupture. Right ankle MRI at [facility] in [place] on [address] [facility] in [place] from 03/14/2021 revealed: 1. Acute on chronic plantar fasciitis. No tear. 2. Mild peroneal tenosynovitis. Achilles peritendinitis. 3. Mild degenerative changes as described-see details in media section of [facility]. Left foot x-rays from 01/06/2021 at [facility]: Small navicular osteophyte at the talonavicular joint and plantar calcaneal spur-see details in media section of [facility] Labs from [facility] on 02/24/2021: Normal ESR, CBC with differential, CMP except for hyperchloremia at 112 (96-108), Nonfasting hyperglycemia at 132 (60-115), ALT 43 (0-31), CRP 0.62 (<or= 0.5)-see details in media section of [facility] Prior labs from 11/22/2020 at [facility]: Normal CMP except for BUN 25 (9-16), CRP 0.57 (< or= 0.5), Normal CBC with differential and ESR.-See details in media section of [facility]. Prior labs from 09/13/2020 at [facility]: ESR 14 (0-20), CRP 0.39 (<or= 0.5) I did not get the reports of CBC with differential or CMP-see details in media section of epic. Labs from 06/23/2020 at [facility]: Normal CMP except for BUN 24 (9-16), Normal ESR, CBC with differential and CRP-see details in media section of epic Labs from 09/16/2019 at [facility] revealed normal chemistry profile except for chloride 110 (96-108), BUN 24 (9-16), Normal CRP, ESR, CBC with differential except for WBC 4.3 (4.8-10.8). Prior labs from 07/15/19 at [facility] revealed: Normal chemistry profile except for BUN 25 (9-16), Hyperchloremia at 111 (96-108), Hyperproteinemia at 6.4 (6.5-8.0), Normal CRP, Leukopenia at 4.7 (4.8-10.8), RBC 4.25 (4.20-5.50), HCT 36.8 (37-47), Thrombopenia at 142 (160-400), ESR 8 (0-20). Prior labs labs from 10/08/18 at [facility] revealed: Normal chemistry profile except for BUN 22 (9-16), Normal CRP, CBC with differential except for mild thrombopenia at 152 (160-400), normal ESR. Assessment and Plan: 1. Inflammatory polyarthritis (Primary) Assessment & Plan: Clinically appears stable on exam today. We [...] times daily or at least at bedtime ?? up to 3 weeks as needed. She may utilize sandwich technique particularly prior to bed rest as long as there is no skin irritation. 2. Primary osteoarthritis involving multiple joints Assessment & Plan: Continue gentle, regular exercise routine as educated by PT/OT. Examples of shoulder exercises with pictures and detailed instructions printed for Keep body weight in ideal range for her height. Call if worse or with questions. May need to consider local steroid injection if not better or worse despite above measures. 3. Fibromyalgia Assessment & Plan: We discussed the diagnosis of fibromyalgia, its [...] to be able to work full-time and asksfor confirmatory letter to her [employer] to accommodate request for OSHA approved stool. 4. Raynaud's disease without gangrene Assessment & Plan: Keep warm, dress in layers. Optimize stress management strategies. Avoid vasoconstrictors in OTC products for cold/flu and sinus. 5. Status post total colectomy Assessment & Plan: Performed in early July 2022 due to toxic megacolon, complicated by large abscess. She decided not to pursue colostomy reversal after learning more about possible side effects/complications Orders: - DXA Screening 6. Gastroesophageal reflux disease with esophagitis without hemorrhage Assessment & Plan: Avoid late, large, spicy meals. Keep headboard elevated at 45?? angle for nighttime. 7. Migraine without aura and without status migrainosus, not intractable Assessment & Plan: Keep well-hydrated. Regular meditation/relaxation sessions. Sleep hygiene. Gentle, regular exercise routine. Keep a diary of headaches with modifying factors to look for possible triggers. Follow with her neurologist exactly as scheduled 8. On selective serotonin reuptake inhibitor (SSRI) therapy Assessment & Plan: Monitor for mood swings, increased muscle rigidity and temperature intolerance. 9. Type 2 diabetes mellitus without complication, without long-term current use of insulin Assessment & Plan: Continue weekly Mounjaro as prescribed in addition to monitoring diet for concentrated sugars and take. Continue daily exercises and follow-up closely with prescribing physician. 10. Hypomagnesemia Assessment & Plan: Serum level appears stable per her report. She is reminded to improve her compliance with chewable evening dose to reduce severe cramps duringthe night. 11. Class 1 obesity due to excess calories with serious comorbidity and body mass index (BMI) of 32.0 to 32.9 in adult Assessment & Plan: Congratulations on losing 18 pounds from 194 on 01/28/2025 down to 176 today and keep it off. Continue portion control. Limit concentrated sugars, saturated fats and calories in the diet. Keep well-hydrated. If unable to achieve expected goal consider formal dietary/nutritional support. 12. Postmenopausal Assessment & Plan: Baseline BMD requested. Daily weightbearing exercises, fall and fracture prevention strategies and proper calcium vitamin Dsupplementation reviewed and strongly encouraged. Follow-up: Return in about 6 months (around 02/08/2026). documented in this encounter Miscellaneous Notes * Assessment & Plan Note - Tory Cordova MD - 08/10/2025 9:14 AM EST Associated Problem(s): Postmenopausal Baseline BMD requested. Daily weightbearing exercises, fall and fracture prevention strategies and proper calcium vitamin Dsupplementation reviewed and strongly encouraged. * Assessment & Plan Note - Tory Cordova MD - 08/10/2025 9:13 AM EST Associated Problem(s): Type 2 diabetes mellitus Continue weekly Mounjaro as prescribed in addition to monitoring diet for concentrated sugars and take. Continue daily exercises and follow-up closely with prescribing physician. * Assessment & Plan Note - Tory Cordova MD - 08/10/2025 8:51 AM EST Associated Problem(s): Class 1 obesity due to excess calories with serious comorbidity and body mass index (BMI) of 32.0 to 32.9 in adult Congratulations on losing 18 pounds from 194 on 01/28/2025 down to 176 today and keep it off. Continue portion control. Limit concentrated sugars, saturated fats and calories in the diet. Keep well-hydrated. If unable to achieve expected goal consider formal dietary/nutritional support. * Assessment & Plan Note - Tory Cordova MD - 08/10/2025 8:49 AM EST Associated Problem(s): Hypomagnesemia Serum level appears stable per her report. She is reminded to improve her compliance with chewable evening dose to reduce severe cramps duringthe night. * Assessment & Plan Note - Tory Cordova MD - 08/10/2025 8:47 AM EST Associated Problem(s): Gastroesophageal reflux disease with esophagitis Avoid late, large, spicy meals. Keep headboard elevated at 45?? angle for nighttime. * Assessment & Plan Note - Tory Cordova MD - 08/10/2025 8:46 AM EST Associated Problem(s): Primary osteoarthritis involving multiple joints Continue gentle, regular exercise routine as educated by PT/OT. Examples of shoulder exercises with pictures and detailed instructions printed for Keep body weight in ideal range for her height. Call if worse or with questions. May need to consider local steroid injection if not better or worse despite above measures. * Assessment & Plan Note - Tory Cordova MD - 08/10/2025 8:42 AM EST Associated Problem(s): On selective serotonin reuptake inhibitor (SSRI) therapy Monitor for mood swings, increased muscle rigidity and temperature intolerance. * Assessment & Plan Note - Tory Cordova MD - 08/10/2025 8:41 AM EST Associated Problem(s): Status post total colectomy Performed in early July 2022 due to toxic megacolon, complicated by large abscess. She decided not to pursue colostomy reversal after learning more about possible side effects/complications * Assessment & Plan Note - Tory Cordova MD - 08/10/2025 8:41 AM EST Associated Problem(s): Migraine without aura or status migrainosus Keep well-hydrated. Regular meditation/relaxation sessions. Sleep hygiene. Gentle, regular exercise routine. Keep a diary of headaches with modifying factors to look for possible triggers. Follow with her neurologist exactly as scheduled * Assessment & Plan Note - Tory Cordova MD - 08/10/2025 8:41 AM EST Associated Problem(s): Raynaud's disease without gangrene Keep warm, dress in layers. Optimize stress management strategies. Avoid vasoconstrictors in OTC products for cold/flu and sinus. * Assessment & Plan Note - Tory Cordova MD - 08/10/2025 8:41 AM EST Associated Problem(s): Fibromyalgia We discussed the diagnosis of fibromyalgia, its [...] to be able to work full-time and asksfor confirmatory letter to her company's HR to accommodate request for OSHA approved stool. * Assessment & Plan Note - Tory Cordova MD - 08/10/2025 8:41 AM EST Associated Problem(s): Inflammatory polyarthritis Clinically appears stable on exam today. We [...] times daily or at least at bedtime ?? up to 3 weeks as needed. She may utilize sandwich technique particularly prior to bed rest as long as there is no skin irritation. documented in this encounter Plan of Treatment Upcoming Encounters Date Type Department Care Team (Late st Contact Info) Description 01/11/2026 8:30 AM EDT Office Visit [facility] Rheumatology [address] [place] [address] Tory Cordova MD [address] [facility], [address] [place] [address] [email or web address] documented as of this encounter Procedures Procedure Name Priority Date/Time Associated Diagnosis Comments BD DXA SCREENING Routine 08/10/2025 8:53 AM EST Status post total colectomy documented in this encounter Visit Diagnoses Diagnosis Inflammatory polyarthritis- Primary Unspecified inflammatory polyarthropathy Primary osteoarthritis involving multiple joints Fibromyalgia Unspecified myalgia and myositis Raynaud's disease without gangrene Status post total colectomy Gastroesophageal reflux disease with esophagitis without hemorrhage Migraine without aura and without status migrainosus, not intractable On selective serotonin reuptake inhibitor (SSRI) therapy Type 2 diabetes mellitus without complication, without long-term current use of insulin Hypomagnesemia Disorders of magnesium metabolism Class 1 obesity due to excess calories with serious comorbidity and body mass index (BMI) of 32.0 to 32.9 in adult Postmenopausal Asymptomatic postmenopausal status (age-related) (natural) documented in this encounter Care Teams Button Reclaimer Relationship Specialty Start Date End Date Manolo Bonilla MD PCP - General Family Medicine 08/10/23 documented as of this encounter Additional Source Comments The information contained in this document represents components of the legal health record. It is not the complete legal health record.[facility]
--- NOTE | 2025-08-13 15:29 | A.OFFPC_ITS ---
Vital Signs 08/13/25 15:34 Height 5 ft 4 in Weight 175 lb 8 oz BMI 30.1 BP 153/67 H Blood Pressure Location Rt brachial Position Sitting Respiration 12 Pulse 68 Pulse Source Pulse Oximeter Temp 96.6 F L Temp Source Temporal Artery Scan Pulse Oximetry (%) 99 Oxygen Delivery Method Room Air Intake Visit Reasons: f/u diabetes Intake Note: Follow up on DM. Patient c/o cramping all over her body x 2 months. Hedis Analyst Required: No Allergies omeprazole (OMEPRAZOLE) Allergy (Severe, Verified 08/13/25 15:29) N/V tramadol (From Ultram) Allergy (Intermediate, Verified 08/13/25 15:29) ITCHING vaccine adjuvant system, AS01B lipo (From Shingrix (PF)) Allergy (Unknown, Verified 08/13/25 15:29) Unknown varicella-zoster virus glycoprotein (From Shingrix (PF)) Allergy (Unknown, Verified 08/13/25 15:29) Unknown ibuprofen (From Motrin) Allergy (Verified 08/13/25 15:29) Unknown IVP Dye Allergy (Unknown, Uncoded 08/13/25 15:29) Unknown Z pack Allergy (Unknown, Uncoded 08/13/25 15:29) Unknown Medication List - Last Reconciled 08/13/25 by Manolo Bonilla MD blood pressure monitor Automatic, Digital. Dx: I10. Daily As directed, 999 days/lifetime duloxetine 30 mg PO BID 90 days fexofenadine (Shaye Allergy) 180 mg PO DAILY fremanezumab-vfrm (Ajovy) 225 mg (1.5 mL) subcut QMONTH 30 days magnesium oxide 800 mg PO BID methocarbamol 750 mg PO TID orzesxwn-amf-jwko-FA-vit K-lut 8 mg iron-400 mcg-50 mcg (Centrum Silver Women) 1 tab PO DAILY ondansetron 1 tab PO DAILY PRN ondansetron 8 mg PO DAILY PRN pantoprazole 40 mg PO DAILY rizatriptan take 1 tab at onset of headache; if no relief may repeat 1 tab after at least 4 hrs; max = 2 tabs/24 hr PO 30 days tirzepatide 5 mg (0.5 mL) subcut QWEEK 28 days Tobacco use date assessed: 08/13/25 Fall risk assessment: No Falls in past year Last assessed Fall Risk: 08/13/25 Dental Screening Dental Screen Date: 08/13/25 Did you have a dental visit in the last 12 months?: Yes Did you have a dental problem in the last 6 months where you did not have access to dental care?: No Was dental information given to patient?: Patient has dentist HPI f/u diabetes HPI Details 65 y/o female presents to f/u diabetes. A1c today 08/13/25 5.0%. Has complaints of muscular cramping. Blood pressure today 153/67, 68p. Reports stressors. Pt notes father last night. She notes she has access to a blood pressure monitor. [facility] Medical History Peripheral neuropathy Cervical disc disease Prediabetes Hypertriglyceridemia Elevated blood pressure reading Bilateral foot pain Incisional hernia Parastomal hernia Subcutaneous abscess Seborrheic dermatitis Migraines Fatty liver disease, nonalcoholic Sinusitis Ileostomy in place Dizziness Recurrent vomiting Gastroparesis Intra-abdominal abscess Intra-abdominal abscess Fever of unknown origin Leukocytosis Shock Perforated viscus COVID-19 vaccine series completed Environmental allergies PONV (postoperative nausea and vomiting) Thoracic disc herniation Herniated cervical disc Back pain Fibromyalgia Hx of migraines Crohn's disease Iron deficiency anemia Carpal tunnel syndrome Arthritis Vitamin D deficiency GERD (gastroesophageal reflux disease) Surgical History S/P colectomy Status post colostomy Hx of shoulder surgery History of surgery Hx of fusion of cervical spine Hx of cholecystectomy History of tonsillectomy History of esophagogastroduodenoscopy (EGD) History of tubal ligation Hx of colonoscopy Family History Paternal Grandmother High blood pressure High cholesterol Mother Throat cancer Alcoholism Alcohol abuse Maternal Grandmother Breast cancer Paternal Grandfather Prostate cancer Family/Other High blood pressure Father Alcohol abuse Daughter FH: mental illness Social History Household Members: Spouse and Family Household Members Other:: [place] Housing: House Are you a primary ambulatory care coordinator to a significant other at home: No Do you presently have visiting nurse or other home services: No Unable to assess alcohol history related to: Unknown Alcohol intake: former Comment: restraints Patient Tobacco Use Status: Former Tobacco user Tobacco use type: Cigarette e-Cigarette/Vaping Use: Never Used Second Hand Smoke Exposure: No Advance Directives Date on File: 08/08/22 service: No Current occupational status: employed 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 1. Little interest or pleasure in doing things: not at all 2. Feeling down, depressed, or hopeless: not at all 3. Trouble falling or staying asleep, or sleeping too much: not at all 4. Feeling tired or having little energy: not at all 5. Poor appetite or overeating: not at all 6. Feeling bad about yourself - or that you are a failure or have let yourself or your family down: not at all 7. Trouble concentrating on things, such as reading the newspaper or watching television: not at all 8. Moving or speaking so slowly that other people could have noticed. Or the opposite - being so fidgety or restless that you have been moving around a lot more than usual: not at all 9. Thoughts that you would be better off or of hurting yourself in some way: not at all Total score: 0 Depression Screening Interpretation: Negative Depression Screening Done: Yes 70578 - PHQ-9 Billing: Yes Source: Developed by Drs. Shamar Diaz, Janene Yates, Lavon Serna and colleagues, with an educational lo from [email or web address]. Thrive Questionnaire Date Thrive assessed: 08/13/25 I am a: Patient What is your living situation today?: I have a steady place to live Within the past 12 months, did the food you bought not last and you didn't have the money to get more?: Never true Within the past 12 months, did you worry whether your food would run out before you got money to buy more?: Never true Do you have trouble paying for medicines?: No Do you have trouble getting transportation to medical appointments?: No Do you have trouble paying your heating and electricity bill?: No Do you have trouble taking care of your child, family member or friend?: No Do you have trouble with day-to-day activities such as bathing, preparing meals, shopping, managing finances, etc.?: No Are you currently unemployed and looking for a job?: No Are you interested in more education?: No Please select the resources that you would like help with: None Currently or been in a relationship where the following occur: No concerns reported THRIVE Score: 0 BRANDON-7 AMB Questionnaire BRANDON-7 Date BRANDON - 7 assessed: 08/13/25 Feeling nervous, anxious, or on edge: 0 = Not at all Not being able to stop or control worryin = Not at all Worrying too much about different things: 0 = Not at all Trouble relaxin = Not at all Being so restless that it is hard to sit still: 0 = Not at all Becoming easily annoyed or irritable: 0 = Not at all Feeling afraid as if something awful might happen: 0 = Not at all Total BRANDON-7 score (0-4 normal; 5-9 mild; 10-14 moderate; 15-21 severe): 0 Source: Developed by Drs. Shamar Diaz, Janene Yates, Lavon Serna and colleagues, with an educational lo from [email or web address]. BRANDON-7 Assessment Billing BRANDON-7 Assessment Tool: BRANDON-7 Assessment 31265 Review of Systems Const Denies chills, Denies fatigue, Denies fever(s), Denies headache(s) and Denies weakness ENT Denies dizziness and Denies headache(s) Card Denies dyspnea Resp Denies cough, Denies dyspnea, Denies wheezing and Denies other (shortness of breath) Musc Denies numbness and Denies tingling Neuro Denies dizziness, Denies headache(s), Denies numbness, Denies tingling and Denies weakness Psych Denies anxiety and Denies depression Endo Denies fatigue Aller/Immun Denies wheezing Physical exam (Primary Care) Vital Signs: Last Vital Signs Temp 96.6 F L 08/13/25 15:34 Pulse 68 08/13/25 15:34 Resp 12 08/13/25 15:34 BP 153/67 H 08/13/25 15:34 Pulse Ox 99 08/13/25 15:34 Oxygen Delivery Method Room Air 08/13/25 15:34 BMI result Body Mass Index 30.1 Tobacco/Smoking Status: Tobacco use Status Tobacco use date assessed 08/13/25 08/13/25 15:32 Patient Tobacco Use Status Former Tobacco user 08/13/25 15:32 Tobacco use type Cigarette 08/13/25 15:32 e-Cigarette/Vaping Use Never Used 08/13/25 15:32 PHQ-9: PHQ-9 Score PHQ-9: Total score 0 08/13/25 16:08 Depression Screening Interpretation: Negative Thrive Assessment: Date of Thrive Assessment Date Thrive assessed 08/13/25 08/13/25 15:32 Currently or been in a relationship where the following occur: No concerns reported Const General: well developed; No acute distress Nutritional Appearance: well nourished Orientation/consciousness: patient oriented x3 HENMT Head: Yes normocephalic and Yes atraumatic Eyes General: appearance normal, both eyes and all related structures Pupils: Equal, round and reactive pupils present EOM: EOMs intact bilaterally Resp Effort & Inspection: normal respiratory effort Neuro General: patient oriented x3 and gait normal Cranial nerves: Yes Equal, round and reactive pupils present Psych Affect: normal affect Results AMB Hemoglobin A1c AMB Hemoglobin A1c 5.0 % Last Edit by Laura Garcia MA on 08/13/25 15:45 Results Reviewed Results Reviewed: Laboratory Last Values Hgb A1c (Clinic) 5.0 % (4.0-6.0) 08/13/25 15:39 Coding Level of Care Code Est Pt Level 4 (81234) Diagnoses Diabetes E11.9 Muscle cramping R25.2 Elevated blood pressure reading R03.0 Adjustment disorder with depressed mood F43.21 Additional Codes BRANDON-7 Assessment Billing - BRANDON-7 Assessment Tool: BRANDON-7 Assessment 75240 ([id number]) PHQ-9 - 60155 - PHQ-9 Billing: Yes ([id number]) Assessment & Plan Assessment & Plan (1) Diabetes: Code(s): E11.9 - Type 2 diabetes mellitus without complications Category: Medical Plan: A1c 5.0%. Good control. Goal is less than 7.0% She notes some muscle cramping in a little fatigue at times. Will give her a glucose monitor to check sugars Hydrate well and get regular food intake (2) Muscle cramping: Code(s): R25.2 - Cramp and spasm Category: Medical Plan: As above, may be secondary to electrolyte imbalance or will blood sugars were dehydration This may be worsened by tirzepatide Hydrate well Check blood sugars Get regular water and food intake (3) Elevated blood pressure reading: Code(s): R03.0 - Elevated blood-pressure reading, without diagnosis of hypertension Category: Medical Plan: Use blood pressure monitor to check blood pressures If elevated she will take losartan To know if blood pressures are high frequently She notes that she is stressed lately due to unexpected of her father this week (4) Adjustment disorder with depressed mood: Code(s): F43.21 - Adjustment disorder with depressed mood Category: Medical Plan: Father this week Stable today but stressed. Will follow-up on mood at her next visit Orders: Orders AMB Hemoglobin A1c Today E11.9 - Type 2 diabetes mellitus without complications Medications: New losartan 25 mg PO DAILY 90 tabs 3RF 90 days lancets (Accu-Chek Softclix Lancets) Check Blood Sugar 2 Times a Day As directed, 90 days 200 ea 4RF E11.9 - Type 2 diabetes mellitus without complications blood-glucose meter (Accu-Chek Guide Me Glucose Meter) Check Blood Sugar 2 times a Day As directed, 999 days 1 ea 0RF E11.9 - Type 2 diabetes mellitus without complications blood-glucose meter (Accu-Chek Guide Me Glucose Meter) Check Blood Sugar 2 times a Day As directed, 999 days 1 ea 0RF E11.9 - Type 2 diabetes mellitus without complications
[2025-08-13 15:34] VITALS: BP 153/67; PULSE 68; RESP 12; TEMP 35.9; O2SAT 99; BMI 30.1
--- OUTSIDE RECORDS SUMMARY | 2025-08-13 21:34 | XMS_ITS | Patient Health Record ---
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 Name Role Phone Aren (RETIRED) Deandre SAUER Primary Care Provide r Unavailable Ramu Peralta Jr Unavailable MARIANO LANDIS Unavailable Unavailable Allergies Allergen (clinical drug ingredient) Drug/Non Drug Allergy documented on EMR Reaction Allergy Type Onset Date Status omeprazole Omeprazole Unknown Drug Allergy Activ e tramadol Ultram Unknown Drug Allergy Active Reason For Referral No Information Medications Medication SIG (Take, Route, Frequency, Duration) Notes Start Date End Date Status Claritin Active Cymbalta Active Pantoprazole Sodium 40 MG Tablet Delayed Release TAKE 1 TABLET BY MOUTH EVERY DAY; Duration: 90 days Active DULoxetine HCl 60 MG Capsule Delayed Release Particles Oral; Duration: 90 Active Tylenol Active Methocarbamol Active Topamax 200 MG Tablet 1 tablet Orally tw ice a day Active Imitrex 100 MG Tablet 1 tablet as needed Orally Once a day Active Mesalamine ER 0.375 GM Capsule Extended Release 24 Hour TAKE 4 CAPSULES BY MOUTH EVERY MORNING 90; Duration: 90 Active Robaxin Active Centrum Silver - Tablet as directed Oral ly once a day Active Immunizations Vaccine Route Administration Date Status Comme nts Influenza Unknown 07/25/2018 Administered Influenza Unknown 06/17/2019 Administered Influenza Unknown 05/19/2020 Administered Social History Social History Drugs/Alcohol: Social Info Question Answer Notes Alcohol Screen Did you have a drink containing alcohol in the past year? 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 Section Notes: former smoker over 17 years quit 1999 former smoker over 17 years quit 2000 former smoker over 18 [...] Notes Problem Gastro-esophageal reflux disease without esophagitis ([id number]) Gastro-esophageal reflux disease without esophagitis (K21.9) Active confirmed Problem Nausea ([id number]) Nausea (R11.0) Active confir med Problem Gastroesophageal reflux disease (620247574) Gastroesophageal reflux disease (K21.9) Active confirmed Problem Crohn's disease of small AND large intestines (81574583) Crohns disease of both small and large intestine without complication (K50.80) Active confirmed Problem Gastroesophageal reflux disease without esophagitis (572356946) Gastroesophageal reflux disease without esophagitis (K21.9) Active confirmed Problem Colitis (17003887) Colitis (K52.9) Active confi rmed Problem Diarrhea (14259039) Diarrhea, unspecified type (R19.7) Active confirmed Problem Irritable bowel syndrome characterized by constipation (774869953) Irritable bowel syndrome with constipation (K58.1) Active confirmed Problem Crohn's disease of large bowel (0772065) Crohn's disease of colon without complication (K50.10) [...] Coverage End Date [employer] [address] [address] [place] [address] [id number] Ju Lowe Self - patient is the insured Medical (General) History Medical History History ICD Code esophageal reflux low vitamin D level arthritis carpal tunnel syndrome Denies ND,DM,CVA,Lung disease,renal dise ase iron deficiency anemia Crohn's colitis, last colonoscopy 2018, no active disease. Surgical History Surgery Date(Month/Year) neck surgery cholecystectomy tubal ligation several orthopedic surgeries
--- OUTSIDE RECORDS SUMMARY | 2025-08-13 21:34 | XMS_ITS | Clinical Summary ---
Author Organization [facility] Address [address] [place] [phone] Phone Care Team Providers Care Fan Balancer Name Role Phone Manolo Bonilla MD Primary Care Provider Allergies Active Allergy Reactions Criticality Noted Date Comments Ibuprofen Diarrhea,Weight Gain Low 08/01/2021 Nsaids (Non-Steroidal Anti-Inflammatory Drug) 02/07/2023 Cant take due to stomach Omeprazole Nausea and/or Vomiting 08/09/2017 Tramadol Itching 08/09/2017 Medications multivitamin-textile examiner als-lutein (CENTRUM SILVER) Tab Take 1 tablet by mouth daily. Active rizatriptan (MAXALT) 10 MG tablet Take 10 mg by mouth daily as needed. 2 Active ondansetron (ZOFRAN-ODT) [address] 1 TABLET ON THE TONGUE AND ALLOW TO DISSOLVE NEEDED ORALLY ONCE A DAY 2 Active AJOVY SYRINGE 225 mg/1.5 mL subcutaneous [...] mg under the skin once a week. Active EPINEPHrine 0.3 mg/0.3 mL auto-injector Inject 0.3 mg into the muscle. Active fexofenadine (TRUMAN) 60 MG tablet Take 60 mg by mouth daily. Active methocarbamoL (ROBAXIN) 750 MG tabletIndications: Fibromyalgia TAKE 1 TABLET BY MOUTH 3 TIMES A DAY. 90 tablet 2 Active Ca cit-D3-mag#11-zinc -ccpc-vjj-vep (CALTRATE 600+D) 600 mg calcium- 800 unit-50 mg Tab Take 1 tablet by mouth daily. Active cetirizine (ZYRTEC) 10 MG tablet Take 10 mg by mouth. 025 Discontin ued(No longer taking) Active Problems Problem Noted Date Diagnosed Date On selective serotonin reuptake inhibitor (SSRI) therapy 08/10/2025 Assessment & Plan (08/10/2025 8:42 AM EST): Monitor for mood swings, increased muscle rigidity and temperature intolerance. Postmenopausal 08/10/2025 Assessment & Plan (08/10/2025 9:14 AM EST): Baseline BMD requested. Daily weightbearing exercises, fall and fracture prevention strategies and proper calcium vitamin D supplementation reviewed and strongly encouraged. Family history of Mccoy syndrome 06/09/2025 Assessment & Plan (06/09/2025 11:37 AM EDT): Declined referral for genetic testing Type 2 diabetes mellitus 01/28/2025 Assessment & Plan (08/10/2025 9:13 AM EST): Continue weekly Mounjaro as prescribed in addition to monitoring diet for concentrated sugars and take. Continue daily exercises and follow-up closely with prescribing physician. Class 1 obesity due to exces s calories with serious comorbidity and body mass index (BMI) of 32.0 to 32.9 in adult 04/05/2024 Assessment & Plan (08/10/2025 9:12 AM EST): Congratulations on losing 18 pounds from 194 on 01/28/2025 down to 176 today and keep it off. Continue portion control. Limit concentrated sugars, saturated fats and calories in the diet. Keep well-hydrated. If unable to achieve expected goal consider formal dietary/nutritional support. Assessment & Plan (04/05/2024 8:35 PM EDT): [...] steroid injection. Hypomagnesemia 08/10/2023 Assessment & Plan (08/10/2025 9:12 AM EST): Serum level appears stable per her report. She is reminded to improve her compliance with chewable evening dose to reduce severe cramps during the night. 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 She decided not to pursue colostomy reversal after learning more about possible side effects/complications Assessment & Plan (01/28/2025 3:09 PM EDT): [...] or status migrainosus 12/2021 Assessment & Plan (08/10/2025 8:41 AM EST): Keep well-hydrated. Regular meditation/relaxation sessions. Sleep hygiene. Gentle, regular exercise routine. Keep a diary of headaches with modifying factors to look for possible triggers. Follow with her neurologist exactly as scheduled Assessment & Plan (01/28/2025 3:09 PM EDT): [...] as needed and tolerated. Consider checkup with dairy cattle farm manager versus potato seed cutter if not better. On SSRI therapy 09/20/2020 [...] and dietary modifications as instructed by treating motor vehicle emissions inspector. Assessment & Plan (12/17/2021 2:48 PM EDT): Continue treatment with mesalamine (Apriso) and dietary modifications as instructed by treating motor vehicle emissions inspector. Assessment & Plan (11/22/2020 9:04 AM EDT): Continue treatment with mesalamine (Apriso) and dietary modifications as instructed by treating motor vehicle emissions inspector. Assessment & Plan (09/20/2020 9:03 AM EST): Continue treatment with mesalamine (Apriso) and dietary modifications as instructed by treating motor vehicle emissions inspector. Assessment & Plan (07/12/2020 9:14 AM EST): Continue treatment with mesalamine (Apriso) and dietary modifications as instructed by treating motor vehicle emissions inspector. Assessment & Plan (03/16/2020 11:49 AM EDT): Continue treatment with mesalamine (Apriso) and dietary modifications as instructed by treating motor vehicle emissions inspector. Assessment & Plan (12/25/2019 9:04 AM EDT): Continue treatment with mesalamine (Apriso) and dietary modifications as instructed by treating motor vehicle emissions inspector. Trochanteric bursitis 02/13/2019 Chronic gastritis without bleeding 10/10/2018 Assessment & Plan (03/16/2020 11:49 AM EDT): New close follow-up with motor vehicle emissions inspector exactly as scheduled. Avoid late, large, spicy meals. Keep headboard elevated at 45 angle for nighttime. Assessment & Plan (08/06/2019 8:36 AM EST): Avoid late, large, spicy meals. Keep headboard elevated at 45 angle for nighttime. Raynaud's disease without gangrene 10/10/2018 Assessment & Plan (08/10/2025 8:41 AM EST): Keep warm, dress in layers. Optimize stress management strategies. Avoid vasoconstrictors in OTC products for cold/flu and sinus. Assessment & Plan (01/28/2025 3:09 PM EDT): [...] 11/08/2017 Inflammatory polyarthritis 11/08/2017 Assessment & Plan (08/10/2025 8:41 AM EST): Clinically appears stable on exam [...] is no skin irritation. Assessment & Plan (01/28/2025 3:09 PM EDT): [...] involving multiple joints 08/09/2017 Assessment & Plan (08/10/2025 8:46 AM EST): Continue gentle, regular exercise routine as educated by PT/OT. Examples of shoulder exercises with pictures and detailed instructions printed for Keep body weight in ideal range for her height. Call if worse or with questions. May need to consider local steroid injection if not better or worse despite above measures. Assessment & Plan (01/28/2025 3:09 PM EDT): [...] with questions. Fibromyalgia 08/09/2017 Assessment & Plan (08/10/2025 8:41 AM EST): We discussed the diagnosis of [...] and asks for confirmatory letter to her [employer] HR to accommodate request for OSHA approved stool. Assessment & Plan (01/28/2025 3:46 PM EDT): [...] and asks for confirmatory letter to her [employer] HR to accommodate request for OSHA approved [...] and asks for confirmatory letter to her [facility] [employer] to accommodate request for OSHA approved stool. [...] and asks for confirmatory letter to her [employer] HR to accommodate request for OSHA approved [...] and asks for confirmatory letter to her [facility] HR to accommodate request for OSHA approved [...] disease with esophagitis 08/09/2017 Assessment & Plan (08/10/2025 8:47 AM EST): Avoid late, large, spicy meals. Keep headboard elevated at 45 angle for nighttime. Assessment & Plan (01/28/2025 3:15 PM EDT): [...] Noted Date Diagnosed Date Resolved Date Class 2 severe obesity due t o [...] Monitor periodically-no additional worrisome abnormalities detected by lead burner apprentice/oncologist-Dr. Do during summer 2017 consultation-per patient report Encounters Date Type Department Care Team Description 08/10/2025 8:30 AM EST Office Visit [facility] Rheumatology [address] [place] [address] [place] [address] Tory Cordova MD Inflammatory polyarthritis (Primary Dx); [...] of 32.0 to 32.9 in adult; Postmenopausal 07/24/2025 Orders Only [facility] Rheumatology [address] [place] [address] Melissa Duarte MA Type 2 diabetes mellitus without complication, without long-term current use of insulin; Hypomagnesemia; On SSRI therapy; Inflammatory polyarthritis 07/03/2025 Refill [facility] Rheumatology [address] [place] [address] [place] [address] Tory Cordova MD Medication Refill 06/09/2025 11:00 AM EDT Office Visit [facility] [address] [place] [address] [place] [address] Leticia Gonzalez MD Postmenopausal bleeding (Primary Dx); [...] Pulse 84 08/10/2025 8:12 AM EST Temperature 37.1 C (98.8 F) 11/22/2020 8:44 AM EDT Respiratory Rate - - Oxygen Saturation 98% 08/10/2025 8:12 AM EST Inhaled Oxygen Concentration - - Weight 79.8 kg (176 lb) 08/10/2025 8:12 AM EST w ith shoes Height 157.5 cm (5' 2.01 ) 08/10/2025 8:12 AM ES T Body Mass Index 32.18 08/10/2025 8:12 AM EST Plan of Treatment Upcoming Encounters Date Type Department Care Team (Late st Contact Info) Description 01/11/2026 8:30 AM EDT Office Visit [facility] Rheumatology [address] [place] [address] [place] [address] Tory Cordova MD [address] [place] [address] [address] [place] [address] [email or web address] Due Date Last Done Comments Adult Td,Tdap Booster 1960 DEPRESSION SCREENING 1973 SMOKING Hx and SMOKELESS TOBACCO SCREENING 1974 HEPATITIS C SCREENING 1979 HIV ONE-TIME SCREENING (18-65 YEARS) 1979 LIPID PANEL 1979 MAMMOGRAM 2001 HEMOGLOBIN A1C 12/22/2020 06/23/2020 DIABETIC EYE EXAM 01/28/2025 URINE MICROALBUMIN/CREATININE RATIO 01/28/2025 BLOOD PRESSURE 02/08/2026 08/10/2025 PAP SMEAR 06/09/2028 06/09/2025, 11/09, 11/12/2019 ZOSTER [...] 8:53 AM EST Status post total colectomy CBC AND DIFFERENTIAL Routine 07/24/2025 2:46 PM EST Inflammatory polyarthritis Type 2 diabetes mellitus without complication, without long-term current use of insulin Hypomagnesemia On SSRI therapy MAGNESIUM Routine 07/13/2025 2:47 PM EST Type 2 diabetes mellitus without complication, without long-term current use of insulin Hypomagnesemia On SSRI therapy CREATINE KINASE (CK) Routine 07/13/2025 2:47 PM EST Inflammatory polyarthritis Type 2 diabetes mellitus without complication, without long-term current use of insulin Hypomagnesemia On SSRI therapy CBC AND DIFFERENTIAL Routine 07/13/2025 2:47 PM EST Inflammatory polyarthritis Type 2 diabetes mellitus without complication, without long-term current use of insulin Hypomagnesemia On SSRI therapy SEDIMENTATION RATE (ESR) Routine 07/13/2025 2:47 PM EST Inflammatory polyarthritis Type 2 diabetes mellitus without complication, without long-term current use of insulin Hypomagnesemia On SSRI therapy C-REACTIVE PROTEIN (CRP) Routine 07/13/2025 2:47 PM EST Inflammatory polyarthritis Type 2 diabetes mellitus without complication, without long-term current use of insulin Hypomagnesemia On SSRI therapy COMPREHENSIVE METABOLIC PANEL (CMP) Routine 07/13/2025 2:47 PM EST Inflammatory polyarthritis Type 2 diabetes mellitus without complication, without long-term current use of insulin Hypomagnesemia On SSRI therapy PAP TEST Routine 06/09/2025 12:00 AM EDT ANATOMIC PATHOLOGY Routine 06/09/2025 12 :00 AM EDT OUTSIDE HEMOGLOBIN A1C Routine 06/23/2020 from Last 3 Months or Most Recently Relevant to Health Maintenance Results * Magnesium (07/13/2025 2:47 PM EST) Blood (Blood) us Tory Cordova MD LAB BLOOD BKR ORDERABLES Final Result EXTERNAL NON-INTERFACED REF LAB * Creatine Kinase (CK) (07/13/2025 2:47 PM EST) Blood (Blood) Tory Cordova MD LAB BLOOD BKR ORDERABLES Final Result Performing Organization Address [facility] de Phone Number EXTERNAL NON-INTERFACED REF LAB * CBC and Differential (07/13/2025 2:47 PM EST) Blood (Blood) Tory Cordova MD LAB BLOOD BKR ORDERABLES Final Result Performing Organization Address [facility] de Phone Number EXTERNAL NON-INTERFACED REF LAB * Erythrocyte Sedimentation Rate (ESR) (07/13/2025 2:47 PM EST) Blood (Blood) Tory Cordova MD LAB BLOOD BKR ORDERABLES Final Result Performing Organization Address [facility] de Phone Number EXTERNAL NON-INTERFACED REF LAB * C-Reactive Protein (CRP) (07/13/2025 2:47 PM EST) Blood (Blood) Tory Cordova MD LAB BLOOD BKR ORDERABLES Final Result Performing Organization Address [facility] de Phone Number EXTERNAL NON-INTERFACED REF LAB * Comprehensive Metabolic Panel (CMP) (07/13/2025 2:47 PM EST) Blood (Blood) Tory Cordova MD LAB BLOOD BKR ORDERABLES Final Result Performing Organization Address [facility] de Phone Number EXTERNAL NON-INTERFACED REF LAB * Pap Test (06/09/2025 12:00 AM EDT) Report [address] [address] Cloth Spreader: Bro Cox MD PICK REMOVER Cytology Report FINAL DIAGNOSIS A. PAP SMEAR (THIN PREP) CE: SPECIMEN ADEQUACY: Satisfactory for evaluation; transformation zone present. INTERPRETATION: NEGATIVE FOR INTRAEPITHELIAL LESION OR MALIGNANCY. This specimen was analyzed by the automated ThinPrep Imaging System (Kiosked.) and the selected sweet were reviewed by a building energy consultant. Electronically Signed Out By: OSBALDO Biggs(ASCP) OSBALDO [...] by real-time polymerase chain reaction (PCR) at [address] using the FDA-approved BD Onclarity HPV Assay with extended genotyping. Uses of the assay in scenarios other than those approved by the FDA should be considered off-label use. The accuracy and precision of this test for all other off-label specimen sources has been verified in the Cytopathology Laboratory of the [facility] and has not been cleared or [...] : 1960 (Age: 65) Sex: F Institution: [facility] Location: [facility] Date of Collection: 06/09/2025 Date of Reported: 06/16/2025 16:47 Results to: Leticia Gonzalez MD [facility] Final Diagnosis A. PAP SMEAR (THIN PREP) CE: SPECIMEN ADEQUACY: Satisfactory for evaluation; transformation zone present. INTERPRETATION: NEGATIVE FOR INTRAEPITHELIAL LESION OR MALIGNANCY. This specimen was analyzed by the automated ThinPrep Imaging System (Kiosked.) and the selected sweet were reviewed by a building energy consultant. [facility] Results\Inter pretation A. PAP SMEAR (THIN PREP) CE: High-risk HPV Panel w/ extended genotyping NEG HPV 16-NEG HPV 18-NEG HPV 45-NEG HPV 33/58-NEG HPV 31-NEG HPV 56/59/66-NEG HPV 51-NEG HPV 52-NEG HPV 35/39/68-NEG Performed by real-time polymerase chain reaction (PCR) at [address] using the FDA-approved BD Onclarity HPV Assay with extended genotyping. Uses of the assay in scenarios other than those approved by the FDA should be considered off-label use. The accuracy and precision of this test for all other off-label specimen sources has been verified in the Cytopathology Laboratory of the [facility] and has not been cleared or approved by the U.S. Food and Drug Administration. Clinical correlation is advised. The assay assesses the E6/E7 DNA target and utilizes human beta globin as an internal control. Cytology and HPV testing are screening assays and should not be used as the sole means of detecting cancer. False-positives and false-negatives can occur. [facility] Conversion Type (Conversion Source) 06/09/2025 06/10/2025 8:11 AM EDT us Leticia Gonzalez MD CYTOLOGY ORDERABLES Edited Result - Final [address] [address] * Anatomic Pathology (Non-MGB) (06/09/2025 12:00 AM EDT) Report [address] [address] Cloth Spreader: Bro Cox MD Surgical Pathology Report FINAL [...] single cassette labeled A1. Grossed by: RODOLFO Bunch PA([facility]) [id number] 06/10/2025 Grossing Staff: [id number] Patient Name: ARCADIO PEREYRA : 1960 (Age: 65) Sex: F Institution: [facility] Location: [facility] Date of Operation: 06/09/2025 Date of Reported: 06/11/2025 15:31 Results To: Leticia Bonilla MD [facility] Clinical History Postmenopausal bleeding (N95.0) [facility] Final Diagnosis ENDOMETRIAL BIOPSY: Inactive endometrium with stromal breakdown. [facility] Gross Description ENDOMETRIAL BIOPSY: Received in formalin is a 0.7 x 0.5 x 0.4 cm aggregate of dark red blood clot admixed with irregular vuong-pink soft tissue which is submitted in toto in a single cassette labeled A1. Grossed by: RODOLFO Bunch PA([facility]) [facility] Conversion Type (Endometrium) 06/09/2025 06/10/2025 6:11 AM EDT us Leticia Gonzalez MD LAB PATHOLOGY ORDERABLES E dited Result - Final [address] [address] * Outside HbA1c (06/23/2020) us Tory Cordova MD LAB BLOOD ORDERABLES Fin al Result from Last 3 Months or Most Recently Relevant to Health Maintenance [place] [address] [place] [address] [employer] [place] [address] [place] [address] [employer] [facility] [employer] [place] [address] [place] [address] [place] [address] [place] [address] [place] [address] [place] [address] [employer] Care Teams Fan Balancer Relationship Specialty Start Date End Date Manolo Bonilla MD PCP - General Family Medicine 08/10/23 Additional Source Comments The information contained in this document represents components of the legal health record. It is not the complete legal health record.[facility]
--- OUTSIDE RECORDS SUMMARY | 2025-08-13 21:34 | XMS_ITS | Patient Health Record ---
Author Organization Shamar Do III, MD Address [address] [place] [address] DR MELARA Abad [place]ARC[place] DRAPER [id number] Care Team Providers Care Professional Fee Coder Name Role Phone Manolo Bonilla Primary Care [...] Problem Status W/U Status Risk Notes Problem 542887568 Thrombocytopenia (D69.6) Active confirmed Her platelet count has returned to normal and she has had no bleeding or clotting. Problem 034990347 Obesity (BMI 30-39.9) (E66.9) Active confirmed Her weight has been volatile. Her body mass index is now 32.7. We have discussed lifestyle modification diet and nutrition at length. Problem 92724875 Essential hypertension (I10) Active confirmed Her blood pressure is currently normal and no change in her regimen is necessary. The value is 122/82. I recommended weight loss and sodium restriction. Problem 65732865 Degenerative dis c disease, cervical (M50.30) Active confirmed Problem 127058055 History of cholecystectomy (Z90.49) Active confirmed Problem 55254327 Leukopenia, unspecified type (D72.819) Active confirmed The value is now in the normal range. She has had no recent infections. Problem 61109833 Normochromic normocytic anemia (D64.9) Active confirmed The hematocrit and mean cell volume are now normal. 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 I strongly recommended she continue routine and regular visits with AUTOMOTIVE TIRE TECHNICIAN. Problem 235858428 H/O tubal ligati on (Z98.51) Active confirmed Vital Signs Heart Rate 63 /min 05/27/2025 Temperature 97.2 degrees Fahrenheit 05/27/2025 Blood pressure diastolic 79 mm Hg 05/27/2025 Height 62 in 05/27/2025 Blood pressure systolic 140 mm Hg 05/27/2025 Weight 182 lbs 05/27/2025 BMI 33.28 kg/m2 05/27/2025 Encounters Encounter Location Date Provider Diagnosis Shamar Do III, MD [address] [place] [address] DR TERRAZAS, MARCOS [phone] 05/27/2025 Shamar Do Leukopenia, unspecif ied type [...] she continue routine and regular visits with AUTOMOTIVE TIRE TECHNICIAN. 05/27/2025 Degenerative disc disease, cervical (ICD-10 - M50.30) 05/27/2025 Obesity (BMI 30-39.9 ) (ICD-10 - E66.9) Her weight has been volatile. Her body mass index is now 32.7. We have discussed lifestyle modification diet and nutrition at length. Plan Of Treatment Pending Test Test Name Order Date PROFILE, RANDOM (COMPREHENSIVE METABOLIC ) 04/28/2024 PROFILE, RANDOM (COMPREHENSIVE METABOLIC ) 04/24/2022 PROFILE, RANDOM (COMPREHENSIVE METABOLIC ) 03/18/2019 PROFILE, RANDOM (COMPREHENSIVE METABOLIC ) 03/12/2018 PROFILE, RANDOM (COMPREHENSIVE METABOLIC ) 09/20/2020 PROFILE, RANDOM (COMPREHENSIVE METABOLIC ) 09/23/2019 PROFILE, RANDOM (COMPREHENSIVE METABOLIC ) 09/05/2018 PROFILE, RANDOM (COMPREHENSIVE METABOLIC ) 10/22/2023 PROFILE, RANDOM (COMPREHENSIVE METABOLIC ) 03/21/2021 PROFILE, RANDOM (COMPREHENSIVE METABOLIC ) 03/23/2020 CBC w DIFF 03/23/2020 CBC w DIFF [...] Insured Coverage Start Date Coverage End Date [facility] [address] [place] [phone] [id number] Ju Hankins Self - patient is the [...] 1994 tonsillectomy 1979 Hospitalization History Reason Date(Month/Year) [facility] colitis May 2017
--- OUTSIDE RECORDS SUMMARY | 2025-08-13 21:35 | XMS_ITS | Clinical Summary ---
Author Organization [address] [facility] Address [address] [place] [address] Phone Care Team Providers Care Office Systems Technology Instructor Name Role Phone Manolo Bonilla MD Primary [...] 1 tablet by mouth daily. Active rizatriptan ([employer]) 10 mg disintegrating tablet PLEASE SEE ATTACHED [...] Date Diagnosed Date Type 2 diabetes mellitus ([facility] V24, [facility] V 28) 01/28/2025 PONV (postoperative nausea and vomiting) 024 Arthritis 06/20/2024 Bilateral foot pain 06/20/2024 Carpal tunnel syndrome 06/20/2024 Crohn disease ([facility] V24, [facility] V28) 024 Dizziness 06/20/2024 Elevated blood pressure reading 06/20/2024 Fatty liver disease, nonalcoholic 06/20/2024 Fever of unknown origin 06/20/2024 Fibromyalgia 06/20/2024 Gastroparesis 06/20/2024 Hypertriglyceridemia 06/20/[address] ([facility] V24, [facility] V28) Intra-abdominal abscess ([facility] V24, [facility] V2 8) 06/20/2024 Iron deficiency anemia 06/20/2024 Leukocytosis 06/20/2024 Migraines 06/20/2024 Pain in right foot 06/20/2024 Parastomal hernia 06/20/2024 Perforated viscus 06/20/2024 Prediabetes 06/20/2024 Recurrent vomiting 06/20/2024 Seborrheic dermatitis 06/20/2024 Shock ([facility] V24, [facility] V28) 06/20/2024 Sinusitis 06/20/2024 Subcutaneous abscess 06/20/2024 Status post total colectomy 02/07/2023 Lateral epicondylitis of right elbow 09/26/2021 Crohn's disease of small int estine without complication ([facility] V24, [facility] V28) 12/25/2019 Raynaud's disease without gangrene 10/10/2018 Gastroesophageal reflux disease with esophagitis 08/09/2017 Primary osteoarthritis involving multiple joints 08/09/2017 Encounters Date Type Department Care Team Description 06/09/2025 2:30 PM EDT Evaluation [facility] Occupational Therapy [address] [place] [address] [phone] Shikha Chaves OT Lateral epicondylitis of left elbow (Primary Dx) 05/22/2025 11:00 AM EDT Consult Orthopedic Surgery - [place] [address] [facility] [address] [place] [address] Nikki Melara MD Lateral epicondylitis of left elbow (Primary Dx); Carpal tunnel syndrome of left wrist from Last 3 Months Surgical History Surgery [...] Procedure Name Priority Date/Time Associated Diagnosis Comments NM ARTHROCENTESIS/ASPIR ATION/INJECTION INTERMEDIATE JOINT/BURSA WO U/S GUID Routine 05/22/2025 11:00 AM EDT Lateral epicondylitis of left elbow from Last 3 Months Results * NM ARTHROCENTESIS/ASPIRATION/INJECTION INTERMEDIATE JOINT/BURSA WO U/S GUID (05/22/2025 [...] Final Result from Last 3 Months Insurance [facility] [employer] Care Teams Office Systems Technology Instructor Relationship Specialty Start Date End Date Manolo Bonilla MD [address] [place] [address] Dr Leonel [place] PCP - General 05/05/24
--- OUTSIDE RECORDS SUMMARY | 2025-08-13 21:35 | XMS_ITS | Encounter Summary ---
Author Organization [facility] Address [address] [address] Phone Care Team Providers Care Laundry Pricing Clerk Name Role Phone Manolo Bonilla MD Primary Care Provider Encounter Details Date Type Department Care Team (Late st Contact Info) Description 07/24/2025 [facility] [address] [place] [address] Melissa Duarte MA [address] [place] [address] [email or web address] Type 2 diabetes mellitus without complication, without long-term current use of insulin; Hypomagnesemia; On SSRI therapy; Inflammatory polyarthritis Social History Tobacco Use Types Packs/Day Years [...] PM EST documented as of this encounter Plan of Treatment Upcoming Encounters Date Type Department Care Team (Late st Contact Info) Description 01/11/2026 8:30 AM EDT Office Visit [facility] Rheumatology [address] [place] [address] Tory Cordova MD [address] [facility], [address] [place] [address] [email or web address] documented as of this encounter Procedures Procedure Name Priority Date/Time Associated Diagnosis Comments CBC AND DIFFERENTIAL Routine 07/24/2025 2:46 PM [...] use of insulin Hypomagnesemia On SSRI therapy documented in this encounter Results * Magnesium (07/13/2025 2:47 PM EST) Blood (Blood) us Tory Cordova MD LAB BLOOD BKR ORDERABLES Final Result Performing Organization Address [facility] de Phone Number EXTERNAL NON-INTERFACED REF LAB * Creatine Kinase (CK) (07/13/2025 2:47 PM EST) Blood (Blood) us Tory Cordova MD LAB BLOOD BKR ORDERABLES Final Result Performing Organization Address [facility] de Phone Number EXTERNAL NON-INTERFACED REF LAB * CBC and Differential (07/13/2025 2:47 PM EST) Blood (Blood) us Tory Cordova MD LAB BLOOD BKR ORDERABLES Final Result Performing Organization Address [facility] de Phone Number EXTERNAL NON-INTERFACED REF LAB * Erythrocyte Sedimentation Rate (ESR) (07/13/2025 2:47 PM EST) Blood (Blood) us Tory Cordova MD LAB BLOOD BKR ORDERABLES Final Result Performing Organization Address [facility] de Phone Number EXTERNAL NON-INTERFACED REF LAB * C-Reactive Protein (CRP) (07/13/2025 2:47 PM EST) Blood (Blood) us Tory Cordova MD LAB BLOOD BKR ORDERABLES Final Result EXTERNAL NON-INTERFACED REF LAB * Comprehensive Metabolic Panel (CMP) (07/13/2025 2:47 PM EST) Blood (Blood) us Tory Cordova MD LAB BLOOD BKR ORDERABLES Final Result EXTERNAL NON-INTERFACED REF LAB documented in this encounter Visit Diagnoses Diagnosis Type 2 diabetes mellitus without complication, without long-term current use of insulin Hypomagnesemia Disorders of magnesium metabolism On SSRI therapy Inflammatory polyarthritis Unspecified inflammatory polyarthropathy documented in this encounter Care Teams Laundry Pricing Clerk Relationship Specialty Start Date End Date Manolo Bonilla MD PCP - General Family Medicine 08/10/23 documented as of this encounter Additional Source Comments The information contained in this document represents components of the legal health record. It is not the complete legal health record.[facility]
== END 2025-08-13 16:26 | disposition home or self-care (01) ==
LOC: HO.HMCFM 15:27
PROVIDERS: PCP Family Medicine; Visit Provider Family Medicine
DX: E11.9 Type 2 diabetes mellitus without complications (principal); R25.2 Cramp and spasm; R03.0 Elevated blood-pressure reading, without diagnosis of hypertension; F43.21 Adjustment disorder with depressed mood

== ENCOUNTER → 2025-08-13 15:26 | Outpatient (BNVA) | payer OTHER, SELFPAY | PROVIDERS: PCP Family Medicine; Visit Provider Family Medicine | DX: E11.9 Type 2 diabetes mellitus without complications (principal); R25.2 Cramp and spasm; R03.0 Elevated blood-pressure reading, without diagnosis of hypertension; F43.21 Adjustment disorder with depressed mood | CPT/HCPCS: 83036; 96127; 99212 ==